=== PATIENT | male | born 1980 | race African-American/Black ===

== ENCOUNTER 2016-07-10 09:44 | Emergency (ER) | payer MEDICARE, MEDICAID ==
[2016-07-10] MEDS ORDERED: NORMAL SALINE 1000 ML 1,000 ML IV ONE ×2 (10:32→12:54)
[2016-07-10] MEDS ORDERED: DIPHENHYDRAMINE HCL 50 MG/ML VIAL IV ONE ×2 (10:33→13:53)
[2016-07-10] MEDS ORDERED: HYDROMORPHONE HCL INJ/PF 2 MG/ML AMPULE IV ONE ×2 (10:33→12:54)
--- NOTE | 2016-07-10 11:46 | ER Document Report ---
ED General - General Chief Complaint: Headache Stated Complaint: RIBS PAIN Notes: Patient is complaining of pain in the lower ribs bilaterally that extends down into his hips bilaterally. Patient has a history of sickle cell disease and in the past has been seen here for pain crises and even admitted to this hospital. His most recent visit was on 02/18/2016, and he was admitted. He has done well since then. However, for the past week, patient has experienced some of these presenting pains off and on. He has had some cough with some congestion and especially some runny nose, but no yellow or bloody discharge. Last night around 3:00, he was having more pain and was unable to sleep. He's been experiencing the pain along with some blurry vision off and on, as well. Patient is not sure if he is about to go into a sickle cell pain crisis. Patient is followed by hematology in [place] at [facility]. He is currently maintained on hydroxyurea and folate. 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 He is not having any problems with priapism at this time. 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 Patient does try to stay active and says he jogs about a mile a day. TRAVEL OUTSIDE OF THE [place] IN LAST 30 DAYS: No - Related Data Allergies/Adverse Reactions: famotidine [From Pepcid] Allergy (Severe, Verified 07/10/16 09:56) Anaphylaxis ketorolac tromethamine [From Toradol] Allergy (Severe, Verified 07/10/16 09:56) levofloxacin [From Levaquin] Allergy (Severe, Verified 07/10/16 09:56) meperidine HCl [From Demerol] Allergy (Severe, Verified 07/10/16 09:56) morphine [Morphine] Allergy (Severe, Verified 07/10/16 09:56) tramadol HCl [From Ultram] Allergy (Severe, Verified 07/10/16 09:56) amoxicillin [Amoxicillin] Allergy (Verified 07/10/16 09:56) fentanyl [Fentanyl] Allergy (Verified 07/10/16 09:56) latex [Latex] Allergy (Verified 07/10/16 09:56) ondansetron HCl [From Zofran] Allergy (Verified 07/10/16 09:56) Past Medical History - Social History Smoking Status: Never Smoker Chew tobacco use (# tins/day): No Frequency of alcohol use: None Drug Abuse: None Family History: Reviewed & Not Pertinent, Other Patient has suicidal ideation: No Patient has homicidal ideation: No Pulmonary Medical History: Denies: Hx Bronchitis, Hx Tuberculosis Neurological Medical History: Reports: Hx Seizures Endocrine Medical History: Denies: Hx Diabetes Mellitus Type 1 Renal/ Medical History: Denies: Hx Peritoneal Dialysis Musculoskeltal Medical History: Reports Hx Musculoskeletal Deformity - right hip avascular necrosis Psychiatric Medical History: Denies: Hx Depression Past Surgical History: Reports: Hx Appendectomy, Hx Vascular Surgery - port placement - Immunizations Immunizations up to date: Yes Hx Diphtheria, Pertussis, Tetanus Vaccination: Yes Hx Pneumococcal Vaccination: 02/20/11 Review of Systems - Review of Systems Notes: REVIEW OF SYSTEMS: CONSTITUTIONAL : Denies fever. EENT: Denies eye, ear, or mouth or throat pain or other symptoms. Does complain of runny nose. CARDIOVASCULAR: Denies chest pain. See history of present illness regarding lower rib pain bilaterally. RESPIRATORY: Has cough, chest congestion, but denies shortness of breath. GASTROINTESTINAL: Denies abdominal pain or nausea, vomiting, or diarrhea. GENITOURINARY: Denies difficulty or painful urinating, urinary frequency, blood in urine. MUSCULOSKELETAL: Denies neck pain. Says he has pain in both hips. Also says that he's had some swelling and pain in both of his knees since we had recent rain. SKIN: Denies rash or skin lesions. NEUROLOGICAL: Denies LOC or altered mental status. Denies headache. Denies sensory loss or motor deficits. ALL OTHER SYSTEMS REVIEWED AND NEGATIVE. Physical Exam - Vital signs Vitals: Temp Pulse Resp BP Pulse Ox 98.8 F 67 14 119/71 96 07/10/16 09:53 07/10/16 09:53 07/10/16 09:53 07/10/16 09:53 07/10/16 09:53 Interpretation: Normal - Notes Notes: PHYSICAL EXAMINATION: GENERAL: Well-appearing, in no acute distress. Afebrile. All vital signs normal. HEAD: Atraumatic, normocephalic. EYES: Pupils equal round and reactive to light, extraocular movements intact. ENT: oropharynx clear without exudates. Moist mucous membranes. NECK: Normal range of motion, supple. LUNGS: Breath sounds clear and equal bilaterally. Tender to press on the lateral, lower ribs bilaterally. HEART: Regular rate and rhythm without murmurs. ABDOMEN: Soft, nontender. No guarding or rebound. BACK: No tenderness throughout entire back. EXTREMITIES: Normal range of motion without pain. No swelling noted of either knee. Mild pain to move the hip joints. NEUROLOGICAL: Normal speech, normal gait. Normal sensory, motor, and reflex exams. Awake, alert, and oriented x3. Cranial nerves normal. PSYCH: Normal mood, normal affect. SKIN: Warm, dry, no rashes. Course - Re-evaluation Re-evalutation: 07/10/16 13:54 Patient says his pain is better, but he has continued itching so I'm giving him some more Benadryl. I don't think he needs any more Dilaudid and he agrees. He has oxycodone at home to take for pain. Went over the lab results with him and his hemoglobin is better than it's been in 6 months or more and he's got an appropriately elevated reticulocyte count. Patient says he's ready to go home. 07/10/16 14:07 Reviewing the patient's chest x-ray before discharge, I note that they suggest mild cardiac enlargement and pulmonary and vascular congestion, but patient has had findings similar to this in the past. He does not have any respiratory symptoms, as he just developed a slight cough today. He says he's had a considerable amount of runny nose all week. I don't think these findings on the chest x-ray change the plan. I stressed with the patient the need to return if he begins to run fevers or he develops worsening chest pain or any respiratory symptoms such as shortness of breath or significant cough, etc. Patient understands and agrees with plan. - Vital Signs Vital signs: Temp Pulse Resp BP Pulse Ox 98.8 F 67 14 119/71 96 07/10/16 09:53 07/10/16 09:53 07/10/16 09:53 07/10/16 09:53 07/10/16 09:53 - Laboratory Result Diagrams: 07/10/16 11:50 07/10/16 11:50 Laboratory results interpreted by me: 07/10/16 07/10/16 11:50 11:50 RBC 3.00 L Hgb 10.6 L Hct 30.6 L MCV 102 H MCH 35.3 H RDW 16.8 H Band Neutrophils % 1 L Retic Count (auto) 7.54 H Absolute Retic 0.226 H Total Bilirubin 2.0 H - Diagnostic Test Radiology reviewed: Image reviewed, Reports reviewed - Chest x-ray shows prominent interstitial or vascular markings in the lung bases and perhaps some vascular congestion. No confluent infiltrates or pleural effusions seen. Heart appears to be mildly enlarged. Discharge - Discharge Clinical Impression: Hb-SS disease with crisis Condition: Stable Disposition: HOME, SELF-CARE Additional Instructions: Sickle Cell Crisis You have "sickle cell crisis." Sickle cell disease is caused by abnormal hemoglobin. This hemoglobin can deform red blood cells into a sickle shape. These abnormal blood cells can block blood vessels. This causes the pain of sickle cell crisis. Sickle cell crisis can occur any time. But attacks are more likely with acute infection, dehydration, or altitude change. A crisis usually causes pain in the legs, back, abdomen, and chest. Sometimes the pain may ease and return later. The usual treatment is oxygen, pain medication, IV fluids, and treatment of infection. Attacks may take a couple of days to resolve. Return if the pain becomes more severe, or if there are new symptoms. NORMAL EXAM AND WORKUP: At this time, except for findings consistent with your sickle cell disease , your examination and workup show no significant abnormality. No significant abnormal physical findings were noted. All laboratory, EKG, and imaging (x-ray , CT scans, ultrasound) studies that were ordered show no significant abnormality. Although your examination and all studies that were ordered showed no significant abnormal finding, there are no examinations and no studies that are 100% accurate. There is always the possibility that some abnormality could exist and not be detected with physical examination or within the limits and capabilities of laboratory and other studies. You should return or follow up as you were instructed on your visit today for further evaluation if your symptoms do not resolve. FOLLOW-UP CARE: If you have been referred to a physician for follow-up care, call the physician s office for an appointment as you were instructed or within the next two days. If you experience worsening or a significant change in your symptoms, notify the physician immediately or return to the Emergency Department at any time for re-evaluation. Take your own medications as before. Return if fever or other new findings or symptoms. Follow-up with your physicians at [facility] in [place]. Forms: Return to Work, Return to School
[2016-07-10 12:25] LABS: HEMATOCRIT 30.6 % (37.9-51.0); HEMOGLOBIN 10.6 g/dL (13.5-17.0); HGB HCT DIFFERENCE 1.2; MEAN CORPUSCULAR HEMOGLOBIN 35.3 pg (27.0-33.4); MEAN CORPUSCULAR HGB CONC 34.6 g/dL (32.0-36.0); MEAN CORPUSCULAR VOLUME 102 fl (80-97); RED CELL DISTRIBUTION WIDTH 16.8 % (11.5-14.0); WHITE BLOOD COUNT 4.6 10^3/uL (4.0-10.5)
[2016-07-10 12:40] LABS: ALANINE AMINOTRANSFERASE 27 U/L (21-72); ALBUMIN 4.3 g/dL (3.5-5.0); ALKALINE PHOSPHATASE 64 U/L (38-126); ANION GAP 12 (5-19); ASPARTATE AMINO TRANSFERASE 30 U/L (17-59); BILIRUBIN,DIRECT 0.3 mg/dL (0.0-0.4); BLOOD UREA NITROGEN 10 mg/dL (7-20); CALCIUM 9.1 mg/dL (8.4-10.2); CARBON DIOXIDE 25 mmol/L (22-30); CHLORIDE 106 mmol/L (98-107); CREATINE KINASE 100 U/L (55-170); CREATININE RESULT 0.61 mg/dL (0.52-1.25); GLUCOSE 85 mg/dL (75-110); POTASSIUM 4.3 mmol/L (3.6-5.0); SODIUM 143.4 mmol/L (137-145); TOTAL PROTEIN 7.7 g/dL (6.3-8.2)
[2016-07-10 12:55] LABS: ANISOCYTOSIS 1+; BAND NEUTROPHILS % (MANUAL) 1 % (3-5); BASOPHILS % (MANUAL) 0 % (0-2); EOSINOPHILS % (MANUAL) 0 % (0-6); LYMPHOCYTES % (MANUAL) 41 % (13-45); NUCLEATED RED BLOOD CELLS 1 /100 WBC (0); POLYCHROMASIA 1+; TARGET CELLS 1+; TOTAL CELLS COUNTED 100
[2016-07-10 13:28] LABS: APPEARANCE,URINE CLEAR; BILIRUBIN,URINE NEGATIVE (NEGATIVE); GLUCOSE, URINE NEGATIVE (NEGATIVE); KETONES,URINE NEGATIVE (NEGATIVE); LEUKOCYTE ESTERASE,URINE NEGATIVE (NEGATIVE); NITRITE,URINE NEGATIVE (NEGATIVE); PROTEIN,URINE NEGATIVE (NEGATIVE); URINE SPECIFIC GRAVITY 1.011; UROBILINOGEN,URINE NEGATIVE mg/dL (<2.0)
[2016-07-10 15:34] VITALS: BP 133/89
== END 2016-07-10 15:33 | disposition home or self-care (01) ==
LOC: ER 09:44
DX: D57.00 Hb-SS disease with crisis, unspecified (principal); R51 Headache; R07.81 Pleurodynia; L29.9 Pruritus, unspecified; Z88.6 Allergy status to analgesic agent; Z91.040 Latex allergy status; Z88.0 Allergy status to penicillin
CPT/HCPCS: 36591; 96376; 99284; 96361; 96374; 96375; 36415; 87040; 82550; 85025; 85045; 80053; 81001; 71020; J1200; J1170; J7030

== ENCOUNTER 2016-10-11 06:39 | Inpatient (IN) | payer MEDICARE, MEDICAID ==
--- NOTE | 2016-10-11 07:25 | ER Document Report ---
ED General Pain - General Chief Complaint: Sickle Cell Crisis Stated Complaint: PAIN ALL OVER/ SICKLE CELL RELATED Time Seen by Provider: 10/11/16 07:25 Mode of Arrival: Ambulatory Information source: Patient Notes: Patient is a 35 year old male with sickle cell disease who presents to the ER today for possible sickle cell crisis. He states that at 2 in the morning he started to have some pain all over his body, limbs and abdomen worse than anywhere else, but denies chest pain or shortness of breath. Patient takes oxycodone at home and states that he did try this but it did not help him. He denies any nausea, vomiting, cough, fever chills that he knows of. TRAVEL OUTSIDE OF THE [place] IN LAST 30 DAYS: No - Related Data Allergies/Adverse Reactions: famotidine [From Pepcid] Allergy (Severe, Verified 07/10/16 09:56) Anaphylaxis ketorolac tromethamine [From Toradol] Allergy (Severe, Verified 07/10/16 09:56) levofloxacin [From Levaquin] Allergy (Severe, Verified 07/10/16 09:56) meperidine HCl [From Demerol] Allergy (Severe, Verified 07/10/16 09:56) morphine [Morphine] Allergy (Severe, Verified 07/10/16 09:56) tramadol HCl [From Ultram] Allergy (Severe, Verified 07/10/16 09:56) amoxicillin [Amoxicillin] Allergy (Verified 07/10/16 09:56) fentanyl [Fentanyl] Allergy (Verified 07/10/16 09:56) latex [Latex] Allergy (Verified 07/10/16 09:56) ondansetron HCl [From Zofran] Allergy (Verified 07/10/16 09:56) Past Medical History - General Information source: Patient - Social History Smoking Status: Unknown if Ever Smoked Family History: Reviewed & Not Pertinent, Other Patient has suicidal ideation: No Patient has homicidal ideation: No - Past Medical History Cardiac Medical History: Denies: Hx Atrial Fibrillation, Hx Congestive Heart Failure, Hx Coronary Artery Disease Pulmonary Medical History: Denies: Hx Bronchitis, Hx Tuberculosis Neurological Medical History: Reports: Hx Seizures Endocrine Medical History: Denies: Hx Diabetes Mellitus Type 1 Renal/ Medical History: Denies: Hx Peritoneal Dialysis Musculoskeltal Medical History: Reports Hx Musculoskeletal Deformity - right hip avascular necrosis Psychiatric Medical History: Denies: Hx Depression Past Surgical History: Reports: Hx Appendectomy, Hx Vascular Surgery - port placement - Immunizations Immunizations up to date: Yes Hx Diphtheria, Pertussis, Tetanus Vaccination: Yes Hx Pneumococcal Vaccination: 02/20/11 Review of Systems - Review of Systems Constitutional: No symptoms reported EENT: No symptoms reported Cardiovascular: No symptoms reported Respiratory: No symptoms reported Gastrointestinal: No symptoms reported Genitourinary: No symptoms reported Male Genitourinary: No symptoms reported Musculoskeletal: No symptoms reported Skin: No symptoms reported Hematologic/Lymphatic: See HPI Neurological/Psychological: No symptoms reported Physical Exam - Vital signs Vitals: Temp Pulse Resp BP Pulse Ox 98.4 F 67 18 130/82 H 99 10/11/16 06:43 10/11/16 06:43 10/11/16 06:43 10/11/16 06:43 10/11/16 06:43 - Notes Notes: PHYSICAL EXAMINATION: GENERAL: Obviously in pain, but in no acute distress. HEAD: Atraumatic, normocephalic. EYES: Pupils equal round and reactive to light, extraocular movements intact, sclera anicteric, conjunctiva are normal. NECK: Normal range of motion, supple without lymphadenopathy LUNGS: CTAB and equal. No wheezes rales or rhonchi. HEART: Regular rate and rhythm without murmurs ABDOMEN: Soft, no tenderness. No guarding, no rebound BACK: no vertebral tenderness, normal ROM GI/: no CVA tenderness EXTREMITIES: tender to palpation over entirety of all extremities, sensitive to touch, otherwise Normal range of motion, no pitting edema. No cyanosis. NEUROLOGICAL: Cranial nerves grossly intact. Normal sensory/motor exams. PSYCH: Normal mood, normal affect. SKIN: Warm, Dry, normal turgor, no rashes or lesions noted Course - Re-evaluation Re-evalutation: 10/11/16 10:35 Dr. Tinajero agrees to admit at this time for sickle cell crisis, reticulocyte count is higher than usual at 11.69, hgb is 9, chest x ray shows scarring c/w other x rays in past. I do not believe he has pneumonia. 10/11/16 10:49 - Vital Signs Vital signs: Temp Pulse Resp BP Pulse Ox 98.4 F 67 18 130/82 H 99 10/11/16 06:43 10/11/16 06:43 10/11/16 06:43 10/11/16 06:43 10/11/16 06:43 - Laboratory Result Diagrams: 10/11/16 08:23 10/11/16 08:23 Laboratory results interpreted by me: 10/11/16 10/11/16 08:23 08:23 RBC 2.83 L Hgb 9.2 L Hct 28.4 L MCV 100 H RDW 20.5 H Retic Count (auto) 11.69 H Absolute Retic 0.331 H Total Bilirubin 1.5 H Discharge - Discharge Clinical Impression: Sickle cell crisis Condition: Stable Disposition: ADMITTED INPATIENT Admitting Provider: Hospitalist Unit Admitted: Telemetry
[2016-10-11] MEDS ORDERED: NORMAL SALINE 1000 ML 1,000 ML IV ONE ×2 (07:28→10:34)
[2016-10-11] MEDS ORDERED: HYDROMORPHONE HCL INJ/PF 2 MG/ML AMPULE IV ONE ×2 (07:39→10:34)
[2016-10-11] MEDS ORDERED: ALBUTEROL SULFATE 0.083% NEB 2.5 MG/3 ML AMPUL NEB ONE (07:39)
[2016-10-11] MEDS ORDERED: DIPHENHYDRAMINE HCL 50 MG/ML VIAL IV ONE ×2 (07:39→10:46)
--- NOTE | 2016-10-11 08:08 | RADIOLOGY REPORT (SQ) ---
EXAM DESCRIPTION: CHEST PA/LAT COMPLETED DATE/TIME: 10/11/2016 7:56 am REASON FOR STUDY: sickle cell, sob, hx pneumonia w/crisis COMPARISON: 07/10/2016. 02/21/2016. 12/30/2015. EXAM PARAMETERS: NUMBER OF VIEWS: two views TECHNIQUE: Digital Frontal and Lateral radiographic views of the chest acquired. RADIATION DOSE: NA LIMITATIONS: none FINDINGS: LUNGS AND PLEURA: Small streakiness -patchiness of bilateral lower lobes, left more than r ight. Mild interstitial markings. MEDIASTINUM AND HILAR STRUCTURES: No masses or contour abnormalities. HEART AND VASCULAR STRUCTURES: Heart normal size. No evidence for failure. BONES: No acute findings. HARDWARE: Left mini port central line appears adequate. OTHER: No other significant finding. IMPRESSION: Small recurrent streakiness-patchiness of bilateral lower lobes may indicate pneumonia, atelectasis, or scar. TECHNICAL DOCUMENTATION: JOB ID: [id number] [employer]- All Rights Reserved
[2016-10-11 08:40] LABS: ABSOLUTE BASOPHILS # (AUTO) 0.1 10^3/uL (0.0-0.2); ABSOLUTE EOSINOPHILS # (AUTO) 0.1 10^3/uL (0.0-0.6); ABSOLUTE LYMPHOCYTES (AUTO) 2.1 10^3/uL (0.5-4.7); ABSOLUTE MONOCYTES (AUTO) 0.9 10^3/uL (0.1-1.4); EOSINOPHILS % (AUTO) 0.9 % (0-6); HEMATOCRIT 28.4 % (37.9-51.0); HEMOGLOBIN 9.2 g/dL (13.5-17.0); HGB HCT DIFFERENCE -0.8; LYMPHOCYTES % (AUTO) 25.7 % (13-45); MEAN CORPUSCULAR HEMOGLOBIN 32.4 pg (27.0-33.4); MEAN CORPUSCULAR HGB CONC 32.4 g/dL (32.0-36.0); MEAN CORPUSCULAR VOLUME 100 fl (80-97); MONOCYTES % (AUTO) 11.5 % (3-13); RED BLOOD COUNT 2.83 10^6/uL (4.35-5.55); RED CELL DISTRIBUTION WIDTH 20.5 % (11.5-14.0); SEGMENTED NEUTROPHILS % (AUTO) 60.9 % (42-78); WHITE BLOOD COUNT 8.2 10^3/uL (4.0-10.5)
[2016-10-11 08:54] LABS: ALANINE AMINOTRANSFERASE 23 U/L (21-72); ALBUMIN 3.8 g/dL (3.5-5.0); ALKALINE PHOSPHATASE 78 U/L (38-126); ANION GAP 9 (5-19); ASPARTATE AMINO TRANSFERASE 24 U/L (17-59); BILIRUBIN,DIRECT 0.1 mg/dL (0.0-0.4); BILIRUBIN,TOTAL 1.5 mg/dL (0.2-1.3); BLOOD UREA NITROGEN 10 mg/dL (7-20); CALCIUM 8.6 mg/dL (8.4-10.2); CARBON DIOXIDE 26 mmol/L (22-30); CHLORIDE 106 mmol/L (98-107); CREATININE RESULT 0.66 mg/dL (0.52-1.25); GLUCOSE 90 mg/dL (75-110); POTASSIUM 3.9 mmol/L (3.6-5.0); SODIUM 141.2 mmol/L (137-145); TOTAL PROTEIN 7.6 g/dL (6.3-8.2)
[2016-10-11 09:25] LABS: ANISOCYTOSIS 2+; OVALOCYTES 2+; POIKILOCYTOSIS 2+; POLYCHROMASIA 2+; TARGET CELLS SLIGHT
[2016-10-11 10:40] LABS: APPEARANCE,URINE CLEAR; BILIRUBIN,URINE NEGATIVE (NEGATIVE); GLUCOSE, URINE NEGATIVE (NEGATIVE); KETONES,URINE NEGATIVE (NEGATIVE); LEUKOCYTE ESTERASE,URINE NEGATIVE (NEGATIVE); NITRITE,URINE NEGATIVE (NEGATIVE); PROTEIN,URINE NEGATIVE (NEGATIVE); URINE SPECIFIC GRAVITY 1.004; UROBILINOGEN,URINE NEGATIVE mg/dL (<2.0)
[2016-10-11] MEDS ORDERED: ACETAMINOPHEN 325 MG TABLET PO PRN (11:16)
[2016-10-11] MEDS ORDERED: OXYCODONE-ACETAMINOPHEN 5-325 MG TABLET PO PRN (11:16)
[2016-10-11] MEDS ORDERED: HYDROMORPHONE HCL INJ/PF 2 MG/ML AMPULE IV PRN (11:21)
--- NOTE | 2016-10-11 12:01 | PDOC H&P ---
History of Present Illness Admission Date/PCP: 10/11/16 11:02 Patient complains of: Hip and chest pain. History of Present Illness: MARISA GARBER is a 35 year old male with sickle cell disease who presents with complaints of chest, hip, back pain. He reports that he woke up this morning at 3 AM with complaints of pain in his chest and hips as well as his lower back. He denies any cough. He denies any fevers or chills. He denies any change with ambulation. Denies any orthopnea or PND. Denies any priapism. Past Medical History Cardiac Medical History: Denies: Atrial Fibrillation, Congestive Heart Failure, Coronary Artery Disease Pulmonary Medical History: Denies: Bronchitis, Tuberculosis Neurological Medical History: Reports: Seizures Endocrine Medical History: Reports: None Renal/ Medical History: Reports: None Malignancy Medical History: Reports: None GI Medical History: Reports: None Psychiatric Medical History: Denies: Depression Hematology: Reports: Anemia, Sickle Cell Disease Denies: Hemophilia Infectious Medical History: Reports: None Past Surgical History Past Surgical History: Reports: Appendectomy, Vascular Surgery - port placement Social History Information Source: Patient Lives with: Spouse/Significant other Smoking Status: Never Smoker Frequency of Alcohol Use: None Hx Recreational Drug Use: No Drugs: None Hx Prescription Drug Abuse: No - Advance Directive Resuscitation Status: Full Code Surrogate healthcare decision maker:: Family History Family History: Other Family History: Father is alive at 61. He is healthy. Mother at age 41. He is uncertain as to the cause Parental Family History Reviewed: Yes Children Family History Reviewed: No Sibling(s) Family History Reviewed.: No Medication/Allergy Allergies/Adverse Reactions: famotidine [From Pepcid] Allergy (Severe, Verified 07/10/16 09:56) Anaphylaxis ketorolac tromethamine [From Toradol] Allergy (Severe, Verified 07/10/16 09:56) levofloxacin [From Levaquin] Allergy (Severe, Verified 07/10/16 09:56) meperidine HCl [From Demerol] Allergy (Severe, Verified 07/10/16 09:56) morphine [Morphine] Allergy (Severe, Verified 07/10/16 09:56) tramadol HCl [From Ultram] Allergy (Severe, Verified 07/10/16 09:56) amoxicillin [Amoxicillin] Allergy (Verified 07/10/16 09:56) fentanyl [Fentanyl] Allergy (Verified 07/10/16 09:56) latex [Latex] Allergy (Verified 07/10/16 09:56) ondansetron HCl [From Zofran] Allergy (Verified 07/10/16 09:56) Review of Systems Constitutional: ABSENT: chills, fever(s), headache(s), weight gain, weight loss Eyes: ABSENT: visual disturbances Ears: ABSENT: hearing changes Cardiovascular: PRESENT: chest pain. ABSENT: dyspnea on exertion, edema, orthropnea, palpitations Respiratory: ABSENT: cough, dyspnea, hemoptysis, sputum Gastrointestinal: ABSENT: abdominal pain, constipation, diarrhea, hematemesis, hematochezia, nausea, vomiting Musculoskeletal: PRESENT: back pain. ABSENT: deformity, joint swelling, muscle weakness Integumentary: ABSENT: rash, wounds Neurological: ABSENT: abnormal gait, abnormal speech, confusion, dizziness, focal weakness, syncope Psychiatric: ABSENT: anxiety, depression Endocrine: ABSENT: cold intolerance, heat intolerance, polydipsia, polyuria Hematologic/Lymphatic: ABSENT: easy bleeding, easy bruising Physical Exam Vital Signs: Temp Pulse Resp BP Pulse Ox 98.4 F 67 18 130/82 H 99 10/11/16 06:43 10/11/16 06:43 10/11/16 06:43 10/11/16 06:43 10/11/16 06:43 General appearance: PRESENT: no acute distress Head exam: PRESENT: atraumatic, normocephalic Eye exam: PRESENT: conjunctiva pink, EOMI, PERRLA. ABSENT: scleral icterus Ear exam: PRESENT: normal external ear exam Mouth exam: PRESENT: moist, tongue midline Neck exam: ABSENT: carotid bruit, JVD, lymphadenopathy, thyromegaly Respiratory exam: PRESENT: clear to auscultation anastasiya. ABSENT: rales, rhonchi, wheezes Cardiovascular exam: PRESENT: RRR. ABSENT: diastolic murmur, rubs, systolic murmur Pulses: PRESENT: normal dorsalis pedis pul Vascular exam: PRESENT: normal capillary refill GI/Abdominal exam: PRESENT: normal bowel sounds, soft. ABSENT: distended, guarding, mass, organolmegaly, rebound, tenderness Rectal exam: PRESENT: deferred Extremities exam: ABSENT: calf tenderness, clubbing, pedal edema Neurological exam: PRESENT: alert, awake, oriented to person, oriented to place , oriented to time, oriented to situation, CN II-XII grossly intact. ABSENT: motor sensory deficit Psychiatric exam: PRESENT: appropriate affect, normal mood Skin exam: PRESENT: dry, intact, warm. ABSENT: cyanosis, rash Results Impressions: Chest X-Ray 10/11/16 07:39 IMPRESSION: Small recurrent streakiness-patchiness of bilateral lower lobes may indicate pneumonia, atelectasis, or scar. Assessment & Plan - Diagnosis (1) Sickle cell crisis Is this a current diagnosis for this admission?: YesPlan: Patient has complaints of chest, back, hip pain. He denies any productive cough. Denies any orthopnea or PND. Will give IV fluids and IV Dilaudid. Patient is now followed at [facility] for his sickle cell disease. Patient denies any fevers or chills or cough. Will hold off on starting any antibiotics at this time. He denies having any priaprism (2) Anemia Qualifiers: Anemia type: acquired or hereditary hemolytic anemia Hemolytic anemia type: hereditary hemolytic anemia, unspecified Qualified Code(s): D58.9 - Hereditary hemolytic anemia, unspecified Is this a current diagnosis for this admission?: Yes (3) Avascular necrosis of hip Qualifiers: Laterality: right Qualified Code(s): M87.051 - Idiopathic aseptic necrosis of right femur Is this a current diagnosis for this admission?: Yes (4) DVT prophylaxis Is this a current diagnosis for this admission?: YesPlan: We will give Lovenox - Time Time Spent: 50 to 70 Minutes - Inpatient Certification Medical Necessity: Need For IV Fluids, Need for Pain Control
[2016-10-11] MEDS ORDERED: ENOXAPARIN SODIUM INJ 40 MG/0.4 ML DISP.SYRIN SUBCUT ONE (12:45)
[2016-10-11] MEDS: NORMAL SALINE 1000 ML 1,000 ML IV PRN ×2 (14:05→20:11)
[2016-10-11] MEDS: HYDROMORPHONE HCL INJ/PF 2 MG/ML AMPULE IV PRN ×5 (14:10→23:13)
[2016-10-11] MEDS: DIPHENHYDRAMINE HCL 50 MG/ML VIAL IV PRN ×3 (14:10→23:13)
[2016-10-12] MEDS: HYDROMORPHONE HCL INJ/PF 2 MG/ML AMPULE IV PRN ×9 (01:50→22:46)
[2016-10-12] MEDS: NORMAL SALINE 1000 ML 1,000 ML IV PRN ×4 (01:52→21:54)
[2016-10-12] MEDS: DIPHENHYDRAMINE HCL 50 MG/ML VIAL IV PRN ×4 (04:09→20:24)
[2016-10-12 07:06] LABS: HEMATOCRIT 27.8 % (37.9-51.0); HEMOGLOBIN 9.3 g/dL (13.5-17.0); HGB HCT DIFFERENCE 0.1; MEAN CORPUSCULAR HEMOGLOBIN 33.5 pg (27.0-33.4); MEAN CORPUSCULAR HGB CONC 33.5 g/dL (32.0-36.0); MEAN CORPUSCULAR VOLUME 100 fl (80-97); RED BLOOD COUNT 2.78 10^6/uL (4.35-5.55); RED CELL DISTRIBUTION WIDTH 20.2 % (11.5-14.0); WHITE BLOOD COUNT 10.2 10^3/uL (4.0-10.5)
[2016-10-12 07:15] LABS: ANION GAP 8 (5-19); BLOOD UREA NITROGEN 8 mg/dL (7-20); CALCIUM 8.3 mg/dL (8.4-10.2); CARBON DIOXIDE 27 mmol/L (22-30); CHLORIDE 106 mmol/L (98-107); CREATININE RESULT 0.66 mg/dL (0.52-1.25); GLUCOSE 111 mg/dL (75-110); POTASSIUM 3.9 mmol/L (3.6-5.0); SODIUM 140.8 mmol/L (137-145)
[2016-10-12 07:29] LABS: BASOPHILS % (MANUAL) 0 % (0-2); EOSINOPHILS % (MANUAL) 0 % (0-6); LYMPHOCYTES % (MANUAL) 21 % (13-45); NUCLEATED RED BLOOD CELLS 7 /100 WBC (0); TOTAL CELLS COUNTED 100
[2016-10-12 07:30] LABS: ANISOCYTOSIS 2+; POLYCHROMASIA 2+; TARGET CELLS 1+
[2016-10-12] MEDS: ENOXAPARIN SODIUM INJ 40 MG/0.4 ML DISP.SYRIN SUBCUT SCH (09:30)
[2016-10-12 12:35] LABS: APPEARANCE,URINE CLEAR; BILIRUBIN,URINE NEGATIVE (NEGATIVE); GLUCOSE, URINE NEGATIVE (NEGATIVE); KETONES,URINE NEGATIVE (NEGATIVE); LEUKOCYTE ESTERASE,URINE NEGATIVE (NEGATIVE); NITRITE,URINE NEGATIVE (NEGATIVE); PROTEIN,URINE NEGATIVE (NEGATIVE); URINE SPECIFIC GRAVITY 1.009; UROBILINOGEN,URINE NEGATIVE mg/dL (<2.0)
[2016-10-12 12:55] LABS: RBC,URINE RARE /HPF; WBC,URINE NONE SEEN /HPF
--- NOTE | 2016-10-12 17:01 | PDOC PROGRESS REPORT ---
Subjective Progress Note for:: 10/12/16 Subjective:: Complains of pain in his back and hips Physical Exam Vital Signs: Temp Pulse Resp BP Pulse Ox 99.7 F 77 20 123/75 98 10/12/16 11:49 10/12/16 16:35 10/12/16 16:35 10/12/16 11:49 10/12/16 16:35 Intake & Output 10/11/16 10/12/16 10/13/16 06:59 06:59 06:59 Intake Total 2950 Balance 2950 Weight 78.6 kg General appearance: PRESENT: no acute distress Eye exam: PRESENT: conjunctiva pink. ABSENT: scleral icterus Ear exam: PRESENT: normal external ear exam Mouth exam: PRESENT: moist, tongue midline Neck exam: ABSENT: JVD Respiratory exam: PRESENT: clear to auscultation anastasiya. ABSENT: rales, rhonchi, wheezes Cardiovascular exam: PRESENT: RRR. ABSENT: diastolic murmur, rubs, systolic murmur GI/Abdominal exam: PRESENT: normal bowel sounds, soft. ABSENT: distended, guarding, mass, organolmegaly, rebound, tenderness Extremities exam: ABSENT: calf tenderness, clubbing, pedal edema Neurological exam: PRESENT: alert, awake, oriented to person, oriented to place , oriented to time, oriented to situation, CN II-XII grossly intact. ABSENT: motor sensory deficit Psychiatric exam: PRESENT: appropriate affect Skin exam: PRESENT: dry, intact, warm. ABSENT: cyanosis, rash Results Laboratory Results: 10/12/16 06:45 10/12/16 06:45 10/12/16 10/12/16 10/12/16 06:45 06:45 12:00 WBC 10.2 RBC 2.78 L Hgb 9.3 L Hct 27.8 L MCV 100 H MCH 33.5 H MCHC 33.5 RDW 20.2 H Plt Count 394 Seg Neutrophils % Not Reportable Lymphocytes % Not Reportable Monocytes % Not Reportable Eosinophils % Not Reportable Basophils % Not Reportable Absolute Neutrophils Not Reportable Absolute Lymphocytes Not Reportable Absolute Monocytes Not Reportable Absolute Eosinophils Not Reportable Absolute Basophils Not Reportable Sodium 140.8 Potassium 3.9 Chloride 106 Carbon Dioxide 27 Anion Gap 8 BUN 8 Creatinine 0.66 Est GFR ( Amer) > 60 Est GFR (Non-Af Amer) > 60 Glucose 111 H Calcium 8.3 L Urine Color YELLOW Urine Appearance CLEAR Urine pH 6.0 Ur Specific [place] 1.009 Urine Protein NEGATIVE Urine Glucose (UA) NEGATIVE Urine Ketones NEGATIVE Urine Blood NEGATIVE Urine Nitrite NEGATIVE Ur Leukocyte Esterase NEGATIVE Impressions: Chest X-Ray 10/11/16 07:39 IMPRESSION: Small recurrent streakiness-patchiness of bilateral lower lobes may indicate pneumonia, atelectasis, or scar. Assessment & Plan - Diagnosis (1) Sickle cell crisis Is this a current diagnosis for this admission?: YesPlan: Patient has complaints of chest, back, hip pain. He denies any productive cough. Denies any orthopnea or PND. Will continue IV fluids and IV Dilaudid. Patient is now followed at [facility] for his sickle cell disease. Patient denies any fevers or chills or cough. Will hold off on starting any antibiotics at this time. 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
[2016-10-13] MEDS: HYDROMORPHONE HCL INJ/PF 2 MG/ML AMPULE IV PRN ×10 (00:52→21:37)
[2016-10-13] MEDS: DIPHENHYDRAMINE HCL 50 MG/ML VIAL IV PRN ×5 (00:52→19:17)
[2016-10-13 06:41] LABS: HEMATOCRIT 27.3 % (37.9-51.0); HGB HCT DIFFERENCE -0.3; MEAN CORPUSCULAR HEMOGLOBIN 32.9 pg (27.0-33.4); MEAN CORPUSCULAR VOLUME 100 fl (80-97); RED BLOOD COUNT 2.75 10^6/uL (4.35-5.55); RED CELL DISTRIBUTION WIDTH 19.4 % (11.5-14.0); WHITE BLOOD COUNT 8.4 10^3/uL (4.0-10.5)
[2016-10-13 06:44] LABS: ANION GAP 6 (5-19); BLOOD UREA NITROGEN 6 mg/dL (7-20); CALCIUM 8.7 mg/dL (8.4-10.2); CARBON DIOXIDE 30 mmol/L (22-30); CHLORIDE 103 mmol/L (98-107); CREATININE RESULT 0.59 mg/dL (0.52-1.25); GLUCOSE 102 mg/dL (75-110); SODIUM 139.2 mmol/L (137-145)
[2016-10-13 07:01] LABS: EOSINOPHILS % (MANUAL) 0 % (0-6); LYMPHOCYTES % (MANUAL) 9 % (13-45); TOTAL CELLS COUNTED 100
[2016-10-13 07:02] LABS: BASOPHILS % (MANUAL) 2 % (0-2); TOXIC GRANULATION 1+; TOXIC VACUOLATION PRESENT
[2016-10-13 07:03] LABS: ANISOCYTOSIS 2+; NUCLEATED RED BLOOD CELLS 6 /100 WBC (0); OVALOCYTES 1+; POIKILOCYTOSIS 1+; TARGET CELLS 1+
[2016-10-13] MEDS ORDERED: OXYCODONE HCL IR 5 MG TABLET PO PRN (09:16)
[2016-10-13] MEDS: METHADONE HCL 10 MG TABLET PO SCH ×2 (09:33→21:39)
[2016-10-13] MEDS: FOLIC ACID 1 MG TABLET PO SCH (09:33)
[2016-10-13] MEDS ORDERED: (PENDING PHARMACY ID) (Methadone Hcl [Dolophine Hcl] 5 MG) PO SCH (10:00)
[2016-10-13] MEDS ORDERED: (PENDING PHARMACY ID) (Moxifloxacin Hcl 1 DROP) OS SCH (10:00)
[2016-10-13] MEDS: ENOXAPARIN SODIUM INJ 40 MG/0.4 ML DISP.SYRIN SUBCUT SCH (10:34)
[2016-10-13] MEDS: HYDROXYUREA 500 MG CAPSULE PO SCH (10:34)
[2016-10-13] MEDS: ALBUTEROL SULFATE 0.083% NEB 2.5 MG/3 ML AMPUL NEB PRN (10:36)
--- NOTE | 2016-10-13 11:10 | PDOC PROGRESS REPORT ---
Subjective Progress Note for:: 10/13/16 Subjective:: Complains of pain in his back and hips Physical Exam Vital Signs: Temp Pulse Resp BP Pulse Ox 98.7 F 92 18 135/81 H 94 10/13/16 07:50 10/13/16 10:36 10/13/16 10:36 10/13/16 07:50 10/13/16 10:36 Intake & Output 10/12/16 10/13/16 10/14/16 06:59 06:59 06:59 Intake Total 2950 5240 700 Output Total 3250 Balance 2950 1990 700 Weight 78.6 kg 79.8 kg General appearance: PRESENT: no acute distress Eye exam: PRESENT: conjunctiva pink. ABSENT: scleral icterus Mouth exam: PRESENT: moist, tongue midline Neck exam: ABSENT: JVD Respiratory exam: PRESENT: clear to auscultation anastasiya. ABSENT: rales, rhonchi, wheezes Cardiovascular exam: PRESENT: RRR. ABSENT: diastolic murmur, rubs, systolic murmur GI/Abdominal exam: PRESENT: normal bowel sounds, soft. ABSENT: distended, guarding, mass, organolmegaly, rebound, tenderness Extremities exam: ABSENT: calf tenderness, clubbing, pedal edema Neurological exam: PRESENT: alert, awake, oriented to person, oriented to place , oriented to time, oriented to situation, CN II-XII grossly intact. ABSENT: motor sensory deficit Psychiatric exam: PRESENT: appropriate affect Skin exam: PRESENT: dry, intact, warm. ABSENT: cyanosis, rash Results Laboratory Results: 10/13/16 05:30 10/13/16 05:30 10/12/16 10/13/16 10/13/16 12:00 05:30 05:30 WBC 8.4 RBC 2.75 L Hgb 9.0 L Hct 27.3 L MCV 100 H MCH 32.9 MCHC 33.0 RDW 19.4 H Plt Count 365 Seg Neutrophils % Not Reportable Lymphocytes % Not Reportable Monocytes % Not Reportable Eosinophils % Not Reportable Basophils % Not Reportable Absolute Neutrophils Not Reportable Absolute Lymphocytes Not Reportable Absolute Monocytes Not Reportable Absolute Eosinophils Not Reportable Absolute Basophils Not Reportable Sodium 139.2 Potassium 4.0 Chloride 103 Carbon Dioxide 30 Anion Gap 6 BUN 6 L Creatinine 0.59 Est GFR ( Amer) > 60 Est GFR (Non-Af Amer) > 60 Glucose 102 Calcium 8.7 Urine Color YELLOW Urine Appearance CLEAR Urine pH 6.0 Ur Specific [place] 1.009 Urine Protein NEGATIVE Urine Glucose (UA) NEGATIVE Urine Ketones NEGATIVE Urine Blood NEGATIVE Urine Nitrite NEGATIVE Ur Leukocyte Esterase NEGATIVE Impressions: Chest X-Ray 10/11/16 07:39 IMPRESSION: Small recurrent streakiness-patchiness of bilateral lower lobes may indicate pneumonia, atelectasis, or scar. Assessment & Plan - Diagnosis (1) Sickle cell crisis Is this a current diagnosis for this admission?: YesPlan: Patient has complaints of chest, back, hip pain. He denies any productive cough. Denies any orthopnea or PND. Will continue IV fluids and IV Dilaudid. Patient is now followed at [facility] for his sickle cell disease. Patient denies any fevers or chills or cough. Will hold off on starting any antibiotics at this time. He denies having any priaprism. He does however report that he normally takes Sudafed 60 mg nightly. (2) Anemia Qualifiers: Anemia type: acquired or hereditary hemolytic anemia Hemolytic anemia type: hereditary hemolytic anemia, unspecified Qualified Code(s): D58.9 - Hereditary hemolytic anemia, unspecified Is this a current diagnosis for this admission?: YesPlan: Hemoglobin is stable (3) Avascular necrosis of hip Qualifiers: Laterality: right Qualified Code(s): M87.051 - Idiopathic aseptic necrosis of right femur Is this a current diagnosis for this admission?: Yes (4) DVT prophylaxis Is this a current diagnosis for this admission?: YesPlan: We will give Lovenox - Time Time Spent with patient: 25-34 minutes - Inpatient Certification Medical Necessity: Need Close Monitoring Due to Risk of Patient Decompensation, Need For IV Fluids, Need for Pain Control
[2016-10-13] MEDS: MOXIFLOXACIN HCL 0.5% OPH SOLN 3 ML OS SCH ×3 (11:57→17:17)
[2016-10-13] MEDS: PSEUDOEPHEDRINE HCL 30 MG TABLET PO SCH (21:39)
[2016-10-13] MEDS: BACLOFEN 10 MG TABLET PO SCH (21:40)
[2016-10-13] MEDS: NORMAL SALINE 1000 ML 1,000 ML IV PRN (23:07)
[2016-10-14] MEDS: HYDROMORPHONE HCL INJ/PF 2 MG/ML AMPULE IV PRN ×11 (00:28→23:15)
[2016-10-14] MEDS: DIPHENHYDRAMINE HCL 50 MG/ML VIAL IV PRN ×6 (00:28→23:14)
[2016-10-14] MEDS: MOXIFLOXACIN HCL 0.5% OPH SOLN 3 ML OS SCH (01:04)
[2016-10-14] MEDS: NORMAL SALINE 1000 ML 1,000 ML IV PRN ×3 (05:10→23:15)
[2016-10-14 05:11] LABS: HEMATOCRIT 26.7 % (37.9-51.0); HEMOGLOBIN 8.9 g/dL (13.5-17.0); MEAN CORPUSCULAR HEMOGLOBIN 32.6 pg (27.0-33.4); MEAN CORPUSCULAR HGB CONC 33.4 g/dL (32.0-36.0); MEAN CORPUSCULAR VOLUME 98 fl (80-97); RED BLOOD COUNT 2.73 10^6/uL (4.35-5.55); RED CELL DISTRIBUTION WIDTH 19.1 % (11.5-14.0); WHITE BLOOD COUNT 7.4 10^3/uL (4.0-10.5)
[2016-10-14 05:19] LABS: ANION GAP 7 (5-19); BLOOD UREA NITROGEN 7 mg/dL (7-20); CALCIUM 8.8 mg/dL (8.4-10.2); CARBON DIOXIDE 33 mmol/L (22-30); CHLORIDE 101 mmol/L (98-107); CREATININE RESULT 0.57 mg/dL (0.52-1.25); GLUCOSE 123 mg/dL (75-110); POTASSIUM 3.9 mmol/L (3.6-5.0); SODIUM 140.9 mmol/L (137-145)
[2016-10-14 06:02] LABS: BASOPHILS % (MANUAL) 0 % (0-2); EOSINOPHILS % (MANUAL) 3 % (0-6); LYMPHOCYTES % (MANUAL) 16 % (13-45); NUCLEATED RED BLOOD CELLS 6 /100 WBC (0); TOTAL CELLS COUNTED 100
[2016-10-14 06:04] LABS: ANISOCYTOSIS 2+; HOWELL-JOLLY BODIES PRESENT; OVALOCYTES SLIGHT; POIKILOCYTOSIS 1+; POLYCHROMASIA 2+; TARGET CELLS 2+; TEAR DROP CELLS SLIGHT
[2016-10-14] MEDS: ALBUTEROL SULFATE 0.083% NEB 2.5 MG/3 ML AMPUL NEB PRN (09:33)
--- NOTE | 2016-10-14 09:44 | RADIOLOGY REPORT (SQ) ---
EXAM DESCRIPTION: CHEST PA/LAT COMPLETED DATE/TIME: 10/14/2016 9:27 am REASON FOR STUDY: chest pain COMPARISON: 10/11/2016 EXAM PARAMETERS: NUMBER OF VIEWS: two views TECHNIQUE: Digital Frontal and Lateral radiographic views of the chest acquired. RADIATION DOSE: NA LIMITATIONS: none FINDINGS: LUNGS AND PLEURA: Increasing basilar opacities and bilateral effusions. MEDIASTINUM AND HILAR STRUCTURES: No masses or contour abnormalities. HEART AND VASCULAR STRUCTURES: Vascular congestion. BONES: No acute findings. HARDWARE: Venous access catheter unchanged. OTHER: No other significant finding. IMPRESSION: Deterioration in the chest. Increasing basilar opacities, effusions, and vascular conge stion. TECHNICAL DOCUMENTATION: JOB ID: [id number] [employer]- All Rights Reserved
[2016-10-14] MEDS: FOLIC ACID 1 MG TABLET PO SCH (10:25)
[2016-10-14] MEDS: METHADONE HCL 10 MG TABLET PO SCH ×2 (10:25→21:09)
[2016-10-14] MEDS: ENOXAPARIN SODIUM INJ 40 MG/0.4 ML DISP.SYRIN SUBCUT SCH (10:25)
[2016-10-14] MEDS: HYDROXYUREA 500 MG CAPSULE PO SCH (10:25)
[2016-10-14] MEDS ORDERED: PROMETHAZINE HCL 25 MG SUPP.RECT PR PRN (11:08)
--- NOTE | 2016-10-14 11:11 | PDOC PROGRESS REPORT ---
Subjective Progress Note for:: 10/14/16 Subjective:: Complains of pain in his back and hips Physical Exam Vital Signs: Temp Pulse Resp BP Pulse Ox 98.6 F 83 16 139/92 H 95 10/14/16 07:27 10/14/16 09:33 10/14/16 09:33 10/14/16 07:27 10/14/16 09:33 Intake & Output 10/13/16 10/14/16 10/15/16 06:59 06:59 06:59 Intake Total 5240 2920 Output Total 3250 3650 Balance 1989 Weight 79.8 kg 79.5 kg General appearance: PRESENT: no acute distress Eye exam: PRESENT: conjunctiva pink. ABSENT: scleral icterus Mouth exam: PRESENT: moist, tongue midline Neck exam: ABSENT: JVD Respiratory exam: PRESENT: rhonchi - Coarse rhonchi bilaterally.. ABSENT: rales , wheezes Cardiovascular exam: PRESENT: RRR. ABSENT: diastolic murmur, rubs, systolic murmur GI/Abdominal exam: PRESENT: normal bowel sounds, soft. ABSENT: distended, guarding, mass, organolmegaly, rebound, tenderness Extremities exam: ABSENT: calf tenderness, clubbing, pedal edema Neurological exam: PRESENT: alert, awake, oriented to person, oriented to place , oriented to time, oriented to situation, CN II-XII grossly intact. ABSENT: motor sensory deficit Psychiatric exam: PRESENT: appropriate affect Skin exam: PRESENT: dry, intact, warm. ABSENT: cyanosis, rash Results Laboratory Results: 10/14/16 04:25 10/14/16 04:25 10/14/16 10/14/16 04:25 04:25 WBC 7.4 RBC 2.73 L Hgb 8.9 L Hct 26.7 L MCV 98 H MCH 32.6 MCHC 33.4 RDW 19.1 H Plt Count 355 Seg Neutrophils % Not Reportable Lymphocytes % Not Reportable Monocytes % Not Reportable Eosinophils % Not Reportable Basophils % Not Reportable Absolute Neutrophils Not Reportable Absolute Lymphocytes Not Reportable Absolute Monocytes Not Reportable Absolute Eosinophils Not Reportable Absolute Basophils Not Reportable Sodium 140.9 Potassium 3.9 Chloride 101 Carbon Dioxide 33 H Anion Gap 7 BUN 7 Creatinine 0.57 Est GFR ( Amer) > 60 Est GFR (Non-Af Amer) > 60 Glucose 123 H Calcium 8.8 Impressions: Chest X-Ray 10/14/16 00:00 IMPRESSION: Deterioration in the chest. Increasing basilar opacities, effusions, and vascular congestion. Assessment & Plan - Diagnosis (1) Sickle cell crisis Is this a current diagnosis for this admission?: YesPlan: Patient has complaints of chest, back, hip pain. He denies any productive cough. Denies any orthopnea or PND. Will continue IV fluids and IV Dilaudid. Patient is now followed at [facility] for his sickle cell disease. Patient denies any fevers or chills but does report a cough now. Will start on Ceftin p.o. he denies having any priaprism. He does however report that he normally takes Sudafed 60 mg nightly. (2) Anemia Qualifiers: Anemia type: acquired or hereditary hemolytic anemia Hemolytic anemia type: hereditary hemolytic anemia, unspecified Qualified Code(s): D58.9 - Hereditary hemolytic anemia, unspecified Is this a current diagnosis for this admission?: YesPlan: Hemoglobin is stable (3) Avascular necrosis of hip Qualifiers: Laterality: right Qualified Code(s): M87.051 - Idiopathic aseptic necrosis of right femur Is this a current diagnosis for this admission?: Yes (4) DVT prophylaxis Is this a current diagnosis for this admission?: YesPlan: We will give Lovenox - Time Time Spent with patient: 25-34 minutes - Inpatient Certification Medical Necessity: Need For IV Fluids, Need for Pain Control
[2016-10-14] MEDS: CEFUROXIME 500 MG TABLET PO SCH ×2 (12:37→17:59)
[2016-10-14] MEDS: BACLOFEN 10 MG TABLET PO SCH (21:09)
[2016-10-14] MEDS: PSEUDOEPHEDRINE HCL 30 MG TABLET PO SCH (21:09)
[2016-10-15] MEDS: HYDROMORPHONE HCL INJ/PF 2 MG/ML AMPULE IV PRN ×8 (01:13→19:57)
[2016-10-15] MEDS: DIPHENHYDRAMINE HCL 50 MG/ML VIAL IV PRN ×4 (03:20→19:57)
[2016-10-15] MEDS: NORMAL SALINE 1000 ML 1,000 ML IV PRN ×2 (06:15→23:40)
[2016-10-15 06:28] LABS: HEMATOCRIT 25.6 % (37.9-51.0); HEMOGLOBIN 8.6 g/dL (13.5-17.0); HGB HCT DIFFERENCE 0.2; MEAN CORPUSCULAR HEMOGLOBIN 32.6 pg (27.0-33.4); MEAN CORPUSCULAR HGB CONC 33.7 g/dL (32.0-36.0); MEAN CORPUSCULAR VOLUME 97 fl (80-97); RED BLOOD COUNT 2.65 10^6/uL (4.35-5.55); RED CELL DISTRIBUTION WIDTH 18.7 % (11.5-14.0); WHITE BLOOD COUNT 9.4 10^3/uL (4.0-10.5)
[2016-10-15 06:44] LABS: ANION GAP 8 (5-19); BLOOD UREA NITROGEN 6 mg/dL (7-20); CALCIUM 8.4 mg/dL (8.4-10.2); CARBON DIOXIDE 32 mmol/L (22-30); CHLORIDE 99 mmol/L (98-107); CREATININE RESULT 0.61 mg/dL (0.52-1.25); GLUCOSE 116 mg/dL (75-110); POTASSIUM 4.1 mmol/L (3.6-5.0); SODIUM 138.6 mmol/L (137-145)
[2016-10-15] MEDS: HYDROXYUREA 500 MG CAPSULE PO SCH (09:44)
[2016-10-15] MEDS: ENOXAPARIN SODIUM INJ 40 MG/0.4 ML DISP.SYRIN SUBCUT SCH (09:44)
[2016-10-15] MEDS: METHADONE HCL 10 MG TABLET PO SCH ×2 (09:46→23:40)
[2016-10-15] MEDS: CEFUROXIME 500 MG TABLET PO SCH ×2 (09:47→17:45)
[2016-10-15] MEDS: FOLIC ACID 1 MG TABLET PO SCH (09:47)
--- NOTE | 2016-10-15 10:38 | PDOC PROGRESS REPORT ---
Subjective Progress Note for:: 10/15/16 Subjective:: Complains of pain in his back and hips Physical Exam Vital Signs: Temp Pulse Resp BP Pulse Ox 99.0 F 93 16 142/86 H 100 10/15/16 07:52 10/15/16 07:52 10/15/16 07:52 10/15/16 07:52 10/15/16 08:00 Intake & Output 10/14/16 10/15/16 10/16/16 06:59 06:59 06:59 Intake Total 2920 91351 Output Total 3650 2750 Balance -730 68701 Weight 79.5 kg 68.3 kg General appearance: PRESENT: no acute distress Eye exam: PRESENT: conjunctiva pink. ABSENT: scleral icterus Mouth exam: PRESENT: moist, tongue midline Neck exam: ABSENT: carotid bruit, JVD, lymphadenopathy, thyromegaly Respiratory exam: PRESENT: clear to auscultation anastasiya. ABSENT: rales, rhonchi, wheezes Cardiovascular exam: PRESENT: RRR. ABSENT: diastolic murmur, rubs, systolic murmur GI/Abdominal exam: PRESENT: normal bowel sounds, soft. ABSENT: distended, guarding, mass, organolmegaly, rebound, tenderness Extremities exam: ABSENT: calf tenderness, clubbing, pedal edema Neurological exam: PRESENT: alert, awake, oriented to person, oriented to place , oriented to time, oriented to situation, CN II-XII grossly intact. ABSENT: motor sensory deficit Psychiatric exam: PRESENT: flat affect Skin exam: PRESENT: dry, intact, warm. ABSENT: cyanosis, rash Results Laboratory Results: 10/15/16 05:45 10/15/16 05:45 10/15/16 10/15/16 05:45 05:45 WBC 9.4 RBC 2.65 L Hgb 8.6 L Hct 25.6 L MCV 97 MCH 32.6 MCHC 33.7 RDW 18.7 H Plt Count 378 Sodium 138.6 Potassium 4.1 Chloride 99 Carbon Dioxide 32 H Anion Gap 8 BUN 6 L Creatinine 0.61 Est GFR ( Amer) > 60 Est GFR (Non-Af Amer) > 60 Glucose 116 H Calcium 8.4 Impressions: Chest X-Ray 10/14/16 00:00 IMPRESSION: Deterioration in the chest. Increasing basilar opacities, effusions, and vascular congestion. Assessment & Plan - Diagnosis (1) Sickle cell crisis Is this a current diagnosis for this admission?: YesPlan: Patient continues to have complaints of pain in spite of being on Dilaudid 4 mg every 2 hours. We will continue the IV fluids. Will ask oncology to evaluate to see if there is anything we can do. I offered the patient to be put on a LEMON PICKER however he has refused that. The patient is on scheduled methadone. He also is on Sudafed for prevention of priapism. (2) Anemia Qualifiers: Anemia type: acquired or hereditary hemolytic anemia Hemolytic anemia type: hereditary hemolytic anemia, unspecified Qualified Code(s): D58.9 - Hereditary hemolytic anemia, unspecified Is this a current diagnosis for this admission?: YesPlan: Hemoglobin is stable (3) Avascular necrosis of hip Qualifiers: Laterality: right Qualified Code(s): M87.051 - Idiopathic aseptic necrosis of right femur Is this a current diagnosis for this admission?: Yes (4) DVT prophylaxis Is this a current diagnosis for this admission?: YesPlan: We will give Lovenox - Time Time Spent with patient: 25-34 minutes - Inpatient Certification Medical Necessity: Need Close Monitoring Due to Risk of Patient Decompensation, Need For IV Fluids, Need for Pain Control
[2016-10-15] MEDS: OXYCODONE HCL IR 5 MG TABLET PO SCH ×2 (13:44→23:39)
[2016-10-15] MEDS: SENNOSIDES/DOCUSATE 8.6-50 MG 1 EACH TABLET PO SCH (17:45)
[2016-10-15] MEDS: DOCUSATE SODIUM 100 MG CAPSULE PO SCH (17:46)
[2016-10-15] MEDS: PSEUDOEPHEDRINE HCL 30 MG TABLET PO SCH (23:39)
[2016-10-15] MEDS: BACLOFEN 10 MG TABLET PO SCH (23:39)
[2016-10-16] MEDS: DIPHENHYDRAMINE HCL 50 MG/ML VIAL IV PRN ×5 (00:11→20:28)
[2016-10-16] MEDS: HYDROMORPHONE HCL INJ/PF 2 MG/ML AMPULE IV PRN ×10 (00:11→23:06)
[2016-10-16] MEDS: OXYCODONE HCL IR 5 MG TABLET PO SCH ×3 (05:40→23:06)
[2016-10-16] MEDS: NORMAL SALINE 1000 ML 1,000 ML IV PRN ×2 (05:41→20:29)
[2016-10-16 07:36] LABS: ANION GAP 7 (5-19); BLOOD UREA NITROGEN 6 mg/dL (7-20); CALCIUM 8.4 mg/dL (8.4-10.2); CARBON DIOXIDE 32 mmol/L (22-30); CHLORIDE 103 mmol/L (98-107); CREATININE RESULT 0.61 mg/dL (0.52-1.25); GLUCOSE 87 mg/dL (75-110); POTASSIUM 4.1 mmol/L (3.6-5.0); SODIUM 142.2 mmol/L (137-145)
[2016-10-16 08:14] LABS: HEMATOCRIT 23.3 % (37.9-51.0); HGB HCT DIFFERENCE 0.1; MEAN CORPUSCULAR HEMOGLOBIN 31.9 pg (27.0-33.4); MEAN CORPUSCULAR HGB CONC 33.3 g/dL (32.0-36.0); MEAN CORPUSCULAR VOLUME 96 fl (80-97); RED BLOOD COUNT 2.43 10^6/uL (4.35-5.55); RED CELL DISTRIBUTION WIDTH 19.2 % (11.5-14.0); WHITE BLOOD COUNT 7.4 10^3/uL (4.0-10.5)
[2016-10-16 08:26] LABS: HEMOGLOBIN 7.8 g/dL (13.5-17.0)
[2016-10-16 08:27] LABS: ANISOCYTOSIS 2+; BASOPHILS % (MANUAL) 0 % (0-2); EOSINOPHILS % (MANUAL) 1 % (0-6); HOWELL-JOLLY BODIES PRESENT; HYPOCHROMASIA 1+; LYMPHOCYTES % (MANUAL) 20 % (13-45); NUCLEATED RED BLOOD CELLS 2 /100 WBC (0); OVALOCYTES SLIGHT; POIKILOCYTOSIS 1+; POLYCHROMASIA 1+; SCHISTOCYTES SLIGHT; SPHEROCYTES SLIGHT; TARGET CELLS 1+; TOTAL CELLS COUNTED 100
--- NOTE | 2016-10-16 08:35 | PDOC CONSULTATION ---
Consultation Consult Date: 10/16/16 Attending physician:: JIAN BOLANOS Consult reason:: Sickle cell disease with crisis History of Present Illness Admission Date/PCP: 10/11/16 11:16 Patient complains of: Pain History of Present Illness: 35-year-old male with known history of sickle cell disease, here with crisis, it has been several years since he has been here. He has been following Dr. Hobson at [facility]. So recently has been admitted there. He is currently on Dilaudid. Still having considerable pain. Past Medical History Cardiac Medical History: Denies: Atrial Fibrillation, Congestive Heart Failure, Coronary Artery Disease Pulmonary Medical History: Denies: Bronchitis, Tuberculosis Neurological Medical History: Reports: Seizures Endocrine Medical History: Reports: None Denies: Diabetes Mellitus Type 1 Renal/ Medical History: Reports: None Malignancy Medical History: Reports: None GI Medical History: Reports: None Psychiatric Medical History: Denies: Depression Hematology: Reports: Anemia, Sickle Cell Disease Denies: Hemophilia Infectious Medical History: Reports: None Past Surgical History Past Surgical History: Reports: Appendectomy, Vascular Surgery - port placement Social History Lives with: Spouse/Significant other Smoking Status: Former Smoker Number of Years Smokin Frequency of Alcohol Use: None Hx Recreational Drug Use: No Drugs: None Hx Prescription Drug Abuse: No - Advance Directive Resuscitation Status: Full Code Family History Family History: Other Parental Family History Reviewed: Yes Children Family History Reviewed: Yes Sibling(s) Family History Reviewed.: Yes Medication/Allergy Home Medications: Baclofen [Baclofen 10 mg Tablet] 10 mg PO QHS 10/11/16 Folic Acid 1 mg PO DAILY 10/11/16 Hydroxyurea [Hydrea 500 Mg Capsule] 1,500 mg PO MOWEFR@1000 10/11/16 Hydroxyurea [Hydrea 500 Mg Capsule] 2,000 mg PO SUTUTHSA@1000 10/11/16 Ibuprofen [Motrin 600 mg Tablet] 600 mg PO QIDP PRN 10/11/16 Methadone HCl [Dolophine Hcl] 5 mg PO BID 10/11/16 Moxifloxacin HCl [Vigamox 0.5% Oph Soln 3 ml] 1 drop OS QID 10/11/16 Oxycodone HCl [Oxycodone HCl 10 MG Tablet] 10 mg PO Q8HP PRN 10/11/16 Allergies/Adverse Reactions: famotidine [From Pepcid] Allergy (Severe, Verified 07/10/16 09:56) Anaphylaxis ketorolac tromethamine [From Toradol] Allergy (Severe, Verified 07/10/16 09:56) levofloxacin [From Levaquin] Allergy (Severe, Verified 07/10/16 09:56) meperidine HCl [From Demerol] Allergy (Severe, Verified 07/10/16 09:56) morphine [Morphine] Allergy (Severe, Verified 07/10/16 09:56) tramadol HCl [From Ultram] Allergy (Severe, Verified 07/10/16 09:56) amoxicillin [Amoxicillin] Allergy (Verified 07/10/16 09:56) fentanyl [Fentanyl] Allergy (Verified 07/10/16 09:56) latex [Latex] Allergy (Verified 07/10/16 09:56) ondansetron HCl [From Zofran] Allergy (Verified 07/10/16 09:56) Review of Systems Constitutional: ABSENT: chills, fever(s), headache(s), weight gain, weight loss Eyes: ABSENT: visual disturbances Ears: ABSENT: hearing changes Cardiovascular: ABSENT: chest pain, dyspnea on exertion, edema, orthropnea, palpitations Respiratory: ABSENT: cough, hemoptysis Gastrointestinal: ABSENT: abdominal pain, constipation, diarrhea, hematemesis, hematochezia, nausea, vomiting Genitourinary: ABSENT: dysuria, hematuria Musculoskeletal: ABSENT: joint swelling Integumentary: ABSENT: rash, wounds Neurological: ABSENT: abnormal gait, abnormal speech, confusion, dizziness, focal weakness, syncope Psychiatric: ABSENT: anxiety, depression, homidical ideation, suicidal ideation Endocrine: ABSENT: cold intolerance, heat intolerance, polydipsia, polyuria Hematologic/Lymphatic: ABSENT: easy bleeding, easy bruising Physical Exam Vital Signs: Temp Pulse Resp BP Pulse Ox 98.6 F 80 16 128/85 H 100 10/15/16 23:20 10/15/16 23:20 10/15/16 23:20 10/15/16 23:20 10/15/16 23:20 Intake & Output 10/15/16 10/16/16 10/17/16 06:59 06:59 06:59 Intake Total 31599 4496 Output Total 2750 4000 Balance 91123 496 Weight 68.3 kg 68.1 kg General appearance: PRESENT: no acute distress, well-developed, well-nourished Head exam: PRESENT: atraumatic, normocephalic Eye exam: PRESENT: conjunctiva pink, EOMI, PERRLA. ABSENT: scleral icterus Ear exam: PRESENT: normal external ear exam Mouth exam: PRESENT: moist, tongue midline Neck exam: ABSENT: carotid bruit, JVD, lymphadenopathy, thyromegaly Respiratory exam: PRESENT: clear to auscultation anastasiya. ABSENT: rales, rhonchi, wheezes Cardiovascular exam: PRESENT: RRR. ABSENT: diastolic murmur, rubs, systolic murmur Pulses: PRESENT: normal dorsalis pedis pul Vascular exam: PRESENT: normal capillary refill GI/Abdominal exam: PRESENT: normal bowel sounds, soft. ABSENT: distended, guarding, mass, organolmegaly, rebound, tenderness Rectal exam: PRESENT: deferred Extremities exam: PRESENT: full ROM. ABSENT: calf tenderness, clubbing, pedal edema Neurological exam: PRESENT: alert, awake, oriented to person, oriented to place , oriented to time, oriented to situation, CN II-XII grossly intact. ABSENT: motor sensory deficit Psychiatric exam: PRESENT: appropriate affect, normal mood. ABSENT: homicidal ideation, suicidal ideation Skin exam: PRESENT: dry, intact, warm. ABSENT: cyanosis, rash Results Laboratory Results: 10/16/16 05:40 10/16/16 05:40 10/16/16 10/16/16 05:40 05:40 WBC 7.4 RBC 2.43 L Hgb 7.8 L Hct 23.3 L MCV 96 MCH 31.9 MCHC 33.3 RDW 19.2 H Plt Count 364 Seg Neutrophils % Not Reportable Lymphocytes % Not Reportable Monocytes % Not Reportable Eosinophils % Not Reportable Basophils % Not Reportable Absolute Neutrophils Not Reportable Absolute Lymphocytes Not Reportable Absolute Monocytes Not Reportable Absolute Eosinophils Not Reportable Absolute Basophils Not Reportable Sodium 142.2 Potassium 4.1 Chloride 103 Carbon Dioxide 32 H Anion Gap 7 BUN 6 L Creatinine 0.61 Est GFR ( Amer) > 60 Est GFR (Non-Af Amer) > 60 Glucose 87 Calcium 8.4 Impressions: Chest X-Ray 10/14/16 00:00 IMPRESSION: Deterioration in the chest. Increasing basilar opacities, effusions, and vascular congestion. Assessment & Plan - Diagnosis (1) Sickle cell crisis Is this a current diagnosis for this admission?: YesPlan: Patient with sickle cell crisis, I will keep the pain medication the same for now. His hemoglobin has decreased, to 7.8 but I would wait till he gets to the low sevens before transfusion so hold on transfusion today. Continue with other supportive measures. - Time Time Spent: 50 to 70 Minutes Critical Time spent with patient: 25-34 minutes
[2016-10-16] MEDS: METHADONE HCL 10 MG TABLET PO SCH ×2 (10:21→23:06)
[2016-10-16] MEDS: DOCUSATE SODIUM 100 MG CAPSULE PO SCH ×2 (10:21→17:43)
[2016-10-16] MEDS: HYDROXYUREA 500 MG CAPSULE PO SCH (10:21)
[2016-10-16] MEDS: SENNOSIDES/DOCUSATE 8.6-50 MG 1 EACH TABLET PO SCH ×2 (10:22→17:43)
[2016-10-16] MEDS: CEFUROXIME 500 MG TABLET PO SCH ×2 (10:22→17:42)
[2016-10-16] MEDS: FOLIC ACID 1 MG TABLET PO SCH (10:22)
[2016-10-16] MEDS: ENOXAPARIN SODIUM INJ 40 MG/0.4 ML DISP.SYRIN SUBCUT SCH (10:24)
--- NOTE | 2016-10-16 13:16 | PDOC PROGRESS REPORT ---
Subjective Progress Note for:: 10/16/16 Subjective:: Patient complains of pleuritic right lower chest wall pain. He is mildly short of breath. He feels like this is improved since being started on antibiotics 2 days ago. He denies fever, chills, hemoptysis, abdominal pain. Physical Exam Vital Signs: Temp Pulse Resp BP Pulse Ox 98.6 F 80 16 128/85 H 98 10/15/16 23:20 10/15/16 23:20 10/15/16 23:20 10/15/16 23:20 10/16/16 09:28 Intake & Output 10/15/16 10/16/16 10/17/16 06:59 06:59 06:59 Intake Total 78227 4496 Output Total 2750 4000 Balance 64214 496 Weight 68.3 kg 68.1 kg GENERAL: No acute distress HEENT: Conjunctiva clear, nonicteric, moist mucous membranes, no JVD, midline trachea RESPIRATORY: Clear to auscultation bilaterally, no wheezes, no rhonchi CARDIAC: Regular rate and rhythm, no murmurs/gallops/rubs ABDOMEN: Soft, nondistended, nontender, positive bowel sounds, no rebound, no guarding EXTREMETIES: No edema, cyanosis, clubbing NEUROLOGIC: Alert, oriented to person/place/time, CN's grossly intact, no focal deficits SKIN: No rash, wounds PSYCH: Normal mood, normal affect Results Laboratory Results: 10/16/16 05:40 10/16/16 05:40 10/16/16 10/16/16 05:40 05:40 WBC 7.4 RBC 2.43 L Hgb 7.8 L Hct 23.3 L MCV 96 MCH 31.9 MCHC 33.3 RDW 19.2 H Plt Count 364 Seg Neutrophils % Not Reportable Lymphocytes % Not Reportable Monocytes % Not Reportable Eosinophils % Not Reportable Basophils % Not Reportable Absolute Neutrophils Not Reportable Absolute Lymphocytes Not Reportable Absolute Monocytes Not Reportable Absolute Eosinophils Not Reportable Absolute Basophils Not Reportable Sodium 142.2 Potassium 4.1 Chloride 103 Carbon Dioxide 32 H Anion Gap 7 BUN 6 L Creatinine 0.61 Est GFR ( Amer) > 60 Est GFR (Non-Af Amer) > 60 Glucose 87 Calcium 8.4 10/11/16 12:00 Blood Blood Culture - Final NO GROWTH IN 5 DAYS Impressions: Chest X-Ray 10/14/16 00:00 IMPRESSION: Deterioration in the chest. Increasing basilar opacities, effusions, and vascular congestion. Assessment & Plan - Diagnosis (1) Sickle cell crisis Is this a current diagnosis for this admission?: YesPlan: Continue IV fluids, analgesic, oxygen. Continue to treat pneumonia. (2) Pneumonia Is this a current diagnosis for this admission?: YesPlan: Patient has bibasilar airspace disease versus scarring. Likely bacterial. Continue Ceftin. (3) Anemia Qualifiers: Anemia type: acquired or hereditary hemolytic anemia Hemolytic anemia type: hereditary hemolytic anemia, unspecified Qualified Code(s): D58.9 - Hereditary hemolytic anemia, unspecified Is this a current diagnosis for this admission?: YesPlan: Hold off on transfusion until hemoglobin in the low 7's per hematology. (4) Avascular necrosis of hip Qualifiers: Laterality: right Qualified Code(s): M87.051 - Idiopathic aseptic necrosis of right femur Is this a current diagnosis for this admission?: Yes - Time Time Spent with patient: 25-34 minutes Anticipated discharge: Home Within: within 72 hours
[2016-10-16] MEDS: PSEUDOEPHEDRINE HCL 30 MG TABLET PO SCH (23:03)
[2016-10-16] MEDS: BACLOFEN 10 MG TABLET PO SCH (23:05)
[2016-10-17] MEDS: HYDROMORPHONE HCL INJ/PF 2 MG/ML AMPULE IV PRN ×10 (01:32→23:27)
[2016-10-17] MEDS: DIPHENHYDRAMINE HCL 50 MG/ML VIAL IV PRN ×4 (01:32→20:23)
[2016-10-17 04:22] LABS: HEMATOCRIT 22.7 % (37.9-51.0); HGB HCT DIFFERENCE 0.1; MEAN CORPUSCULAR HEMOGLOBIN 31.6 pg (27.0-33.4); MEAN CORPUSCULAR HGB CONC 33.5 g/dL (32.0-36.0); MEAN CORPUSCULAR VOLUME 94 fl (80-97); RED BLOOD COUNT 2.41 10^6/uL (4.35-5.55); RED CELL DISTRIBUTION WIDTH 19.9 % (11.5-14.0); WHITE BLOOD COUNT 7.2 10^3/uL (4.0-10.5)
[2016-10-17 04:42] LABS: ANION GAP 10 (5-19); BLOOD UREA NITROGEN 7 mg/dL (7-20); CALCIUM 8.4 mg/dL (8.4-10.2); CARBON DIOXIDE 32 mmol/L (22-30); CHLORIDE 101 mmol/L (98-107); CREATININE RESULT 0.58 mg/dL (0.52-1.25); GLUCOSE 98 mg/dL (75-110); POTASSIUM 3.7 mmol/L (3.6-5.0); SODIUM 142.7 mmol/L (137-145)
[2016-10-17 05:01] LABS: HEMOGLOBIN 7.6 g/dL (13.5-17.0)
[2016-10-17] MEDS: NORMAL SALINE 1000 ML 1,000 ML IV PRN ×2 (06:09→23:27)
[2016-10-17] MEDS: OXYCODONE HCL IR 5 MG TABLET PO SCH ×3 (06:10→22:02)
[2016-10-17] MEDS: CEFUROXIME 500 MG TABLET PO SCH ×2 (06:10→18:07)
[2016-10-17] MEDS ORDERED: NORMAL SALINE 250 ML IV PRN ×2 (07:29)
--- NOTE | 2016-10-17 08:19 | PDOC PROGRESS REPORT ---
Subjective Progress Note for:: 10/17/16 Subjective:: Patient still with considerable pain though slightly better than yesterday. Hemoglobin is down to 7.6. Physical Exam Vital Signs: Temp Pulse Resp BP Pulse Ox 99.0 F 84 16 131/87 H 100 10/16/16 23:30 10/16/16 23:30 10/16/16 23:30 10/16/16 23:30 10/16/16 23:30 Intake & Output 10/16/16 10/17/16 10/18/16 06:59 06:59 06:59 Intake Total 4496 5029 Output Total 4000 2400 Balance 496 2629 Weight 68.1 kg 72.1 kg General appearance: PRESENT: no acute distress, well-developed, well-nourished Head exam: PRESENT: atraumatic, normocephalic Eye exam: PRESENT: conjunctiva pink, EOMI, PERRLA. ABSENT: scleral icterus Ear exam: PRESENT: normal external ear exam Mouth exam: PRESENT: moist, tongue midline Neck exam: ABSENT: carotid bruit, JVD, lymphadenopathy, thyromegaly Respiratory exam: PRESENT: clear to auscultation anasatsiya. ABSENT: rales, rhonchi, wheezes Cardiovascular exam: PRESENT: RRR. ABSENT: diastolic murmur, rubs, systolic murmur Pulses: PRESENT: normal dorsalis pedis pul Vascular exam: PRESENT: normal capillary refill GI/Abdominal exam: PRESENT: normal bowel sounds, soft. ABSENT: distended, guarding, mass, organolmegaly, rebound, tenderness Rectal exam: PRESENT: deferred Extremities exam: PRESENT: full ROM. ABSENT: calf tenderness, clubbing, pedal edema Neurological exam: PRESENT: alert, awake, oriented to person, oriented to place , oriented to time, oriented to situation, CN II-XII grossly intact. ABSENT: motor sensory deficit Psychiatric exam: PRESENT: appropriate affect, normal mood. ABSENT: homicidal ideation, suicidal ideation Skin exam: PRESENT: dry, intact, warm. ABSENT: cyanosis, rash Results Laboratory Results: 10/17/16 04:05 10/17/16 04:05 10/16/16 10/17/16 10/17/16 05:40 04:05 04:05 WBC 7.4 7.2 RBC 2.43 L 2.41 L Hgb 7.8 L 7.6 L Hct 23.3 L 22.7 L MCV 96 94 MCH 31.9 31.6 MCHC 33.3 33.5 RDW 19.2 H 19.9 H Plt Count 364 369 Seg Neutrophils % Not Reportable Lymphocytes % Not Reportable Monocytes % Not Reportable Eosinophils % Not Reportable Basophils % Not Reportable Absolute Neutrophils Not Reportable Absolute Lymphocytes Not Reportable Absolute Monocytes Not Reportable Absolute Eosinophils Not Reportable Absolute Basophils Not Reportable Sodium 142.7 Potassium 3.7 Chloride 101 Carbon Dioxide 32 H Anion Gap 10 BUN 7 Creatinine 0.58 Est GFR ( Amer) > 60 Est GFR (Non-Af Amer) > 60 Glucose 98 Calcium 8.4 10/11/16 14:42 Blood Blood Culture - Final NO GROWTH IN 5 DAYS 10/11/16 12:00 Blood Blood Culture - Final NO GROWTH IN 5 DAYS Impressions: Chest X-Ray 10/14/16 00:00 IMPRESSION: Deterioration in the chest. Increasing basilar opacities, effusions, and vascular congestion. Assessment & Plan - Diagnosis (1) Sickle cell crisis Is this a current diagnosis for this admission?: YesPlan: Today we will transfuse 2 units of packed red blood cells, I see the hospital team ordered 1 unit I added 1 and add a dose of Benadryl and Lasix, continue with current pain regimen, continue with other supportive care. He will likely need several more days of inpatient stay. - Time Time Spent with patient: 25-34 minutes Critical Time spent with patient: 25-34 minutes
[2016-10-17 08:57] LABS: APPEARANCE,URINE CLEAR; BILIRUBIN,URINE NEGATIVE (NEGATIVE); GLUCOSE, URINE NEGATIVE (NEGATIVE); KETONES,URINE NEGATIVE (NEGATIVE); LEUKOCYTE ESTERASE,URINE NEGATIVE (NEGATIVE); NITRITE,URINE NEGATIVE (NEGATIVE); PROTEIN,URINE NEGATIVE (NEGATIVE); URINE SPECIFIC GRAVITY 1.006; UROBILINOGEN,URINE NEGATIVE mg/dL (<2.0)
[2016-10-17] MEDS ORDERED: ACETAMINOPHEN 325 MG TABLET PO PRN (09:04)
[2016-10-17] MEDS ORDERED: DIPHENHYDRAMINE HCL 50 MG/ML VIAL IV PRN (09:04)
[2016-10-17] MEDS ORDERED: FUROSEMIDE INJ/PF 20 MG/2 ML SDV IV PRN (09:14)
[2016-10-17] MEDS: FOLIC ACID 1 MG TABLET PO SCH (09:44)
[2016-10-17] MEDS: SENNOSIDES/DOCUSATE 8.6-50 MG 1 EACH TABLET PO SCH ×2 (09:44→18:07)
[2016-10-17] MEDS: DOCUSATE SODIUM 100 MG CAPSULE PO SCH ×2 (09:44→18:07)
[2016-10-17] MEDS: METHADONE HCL 10 MG TABLET PO SCH ×2 (09:45→22:02)
[2016-10-17] MEDS: HYDROXYUREA 500 MG CAPSULE PO SCH (09:46)
[2016-10-17] MEDS: ENOXAPARIN SODIUM INJ 40 MG/0.4 ML DISP.SYRIN SUBCUT SCH (10:36)
--- NOTE | 2016-10-17 14:36 | PDOC PROGRESS REPORT ---
Subjective Progress Note for:: 10/17/16 Subjective:: Patient has continued pain notably in the chest wall bilaterally worse with inspiration. He has dyspnea on exertion. He denies fever, chills. Physical Exam Vital Signs: Temp Pulse Resp BP Pulse Ox 98.7 F 91 20 174/92 H 100 10/17/16 12:48 10/17/16 12:48 10/17/16 12:48 10/17/16 12:48 10/17/16 12:48 Intake & Output 10/16/16 10/17/16 10/18/16 06:59 06:59 06:59 Intake Total 4496 5029 300 Output Total 4000 2400 Balance 496 2629 300 Weight 68.1 kg 72.1 kg GENERAL: No acute distress HEENT: Conjunctiva clear, nonicteric, moist mucous membranes, no JVD, midline trachea RESPIRATORY: Clear to auscultation bilaterally, no wheezes, no rhonchi CARDIAC: Regular rate and rhythm, no murmurs/gallops/rubs ABDOMEN: Soft, nondistended, nontender, positive bowel sounds, no rebound, no guarding EXTREMETIES: No edema, cyanosis, clubbing NEUROLOGIC: Alert, oriented to person/place/time, CN's grossly intact, no focal deficits SKIN: No rash, wounds PSYCH: Normal mood, normal affect Results Laboratory Results: 10/17/16 04:05 10/17/16 04:05 10/17/16 10/17/16 10/17/16 04:05 04:05 07:48 WBC 7.2 RBC 2.41 L Hgb 7.6 L Hct 22.7 L MCV 94 MCH 31.6 MCHC 33.5 RDW 19.9 H Plt Count 369 Sodium 142.7 Potassium 3.7 Chloride 101 Carbon Dioxide 32 H Anion Gap 10 BUN 7 Creatinine 0.58 Est GFR ( Amer) > 60 Est GFR (Non-Af Amer) > 60 Glucose 98 Calcium 8.4 Urine Color Urine Appearance Urine pH Ur Specific [place] Urine Protein Urine Glucose (UA) Urine Ketones Urine Blood Urine Nitrite Ur Leukocyte Esterase Urine WBC (Auto) Urine RBC (Auto) Blood Type O POSITIVE Antibody Screen NEGATIVE 10/17/16 08:13 WBC RBC Hgb Hct MCV MCH MCHC RDW Plt Count Sodium Potassium Chloride Carbon Dioxide Anion Gap BUN Creatinine Est GFR ( Amer) Est GFR (Non-Af Amer) Glucose Calcium Urine Color YELLOW Urine Appearance CLEAR Urine pH 8.0 Ur Specific [place] 1.006 Urine Protein NEGATIVE Urine Glucose (UA) NEGATIVE Urine Ketones NEGATIVE Urine Blood NEGATIVE Urine Nitrite NEGATIVE Ur Leukocyte Esterase NEGATIVE Urine WBC (Auto) 0 Urine RBC (Auto) 0 Blood Type Antibody Screen 10/11/16 14:42 Blood Blood Culture - Final NO GROWTH IN 5 DAYS 10/11/16 12:00 Blood Blood Culture - Final NO GROWTH IN 5 DAYS Impressions: Chest X-Ray 10/14/16 00:00 IMPRESSION: Deterioration in the chest. Increasing basilar opacities, effusions, and vascular congestion. Assessment & Plan - Diagnosis (1) Sickle cell crisis Is this a current diagnosis for this admission?: YesPlan: Continue IV fluids, analgesic, oxygen. Continue to treat pneumonia. Transfuse 2 units PRBC per hematology recommendation. (2) Pneumonia Is this a current diagnosis for this admission?: YesPlan: Patient has bibasilar airspace disease versus scarring. Likely bacterial. Continue Ceftin. 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
[2016-10-17] MEDS: BACLOFEN 10 MG TABLET PO SCH (22:02)
[2016-10-17] MEDS: PSEUDOEPHEDRINE HCL 30 MG TABLET PO SCH (22:02)
[2016-10-17 22:34] LABS: HEMATOCRIT 31.1 % (37.9-51.0); HGB HCT DIFFERENCE 0.4; MEAN CORPUSCULAR HEMOGLOBIN 31.1 pg (27.0-33.4); MEAN CORPUSCULAR HGB CONC 33.7 g/dL (32.0-36.0); MEAN CORPUSCULAR VOLUME 93 fl (80-97); RED BLOOD COUNT 3.36 10^6/uL (4.35-5.55); RED CELL DISTRIBUTION WIDTH 19.6 % (11.5-14.0); WHITE BLOOD COUNT 8.2 10^3/uL (4.0-10.5)
[2016-10-17 22:49] LABS: HEMOGLOBIN 10.5 g/dL (13.5-17.0)
[2016-10-17 23:00] LABS: BASOPHILS % (MANUAL) 1 % (0-2); EOSINOPHILS % (MANUAL) 6 % (0-6); LYMPHOCYTES % (MANUAL) 19 % (13-45); NUCLEATED RED BLOOD CELLS 2 /100 WBC (0); TOTAL CELLS COUNTED 100
[2016-10-17 23:02] LABS: ANISOCYTOSIS 2+; OVALOCYTES SLIGHT; POIKILOCYTOSIS 1+; POLYCHROMASIA 1+
[2016-10-17 23:03] LABS: PLATELET CLUMPS PRESENT; TARGET CELLS 2+; TEAR DROP CELLS SLIGHT
[2016-10-18] MEDS: HYDROMORPHONE HCL INJ/PF 2 MG/ML AMPULE IV PRN ×8 (01:29→23:58)
[2016-10-18] MEDS: DIPHENHYDRAMINE HCL 50 MG/ML VIAL IV PRN ×4 (01:29→20:20)
[2016-10-18] MEDS: OXYCODONE HCL IR 5 MG TABLET PO SCH ×3 (05:48→21:28)
[2016-10-18] MEDS: NORMAL SALINE 1000 ML 1,000 ML IV PRN ×3 (05:48→20:20)
[2016-10-18] MEDS: CEFUROXIME 500 MG TABLET PO SCH ×2 (05:48→17:26)
[2016-10-18 06:36] LABS: ABSOLUTE BASOPHILS # (AUTO) 0.1 10^3/uL (0.0-0.2); ABSOLUTE EOSINOPHILS # (AUTO) 0.2 10^3/uL (0.0-0.6); ABSOLUTE LYMPHOCYTES (AUTO) 1.8 10^3/uL (0.5-4.7); ABSOLUTE MONOCYTES (AUTO) 0.7 10^3/uL (0.1-1.4); ABSOLUTE NEUT (AUTO) 3.9 10^3/uL (1.7-8.2); BASOPHILS % (AUTO) 1.1 % (0-2); EOSINOPHILS % (AUTO) 2.5 % (0-6); HEMATOCRIT 26.8 % (37.9-51.0); HEMOGLOBIN 9.3 g/dL (13.5-17.0); HGB HCT DIFFERENCE 1.1; LYMPHOCYTES % (AUTO) 26.8 % (13-45); MEAN CORPUSCULAR HEMOGLOBIN 32.1 pg (27.0-33.4); MEAN CORPUSCULAR HGB CONC 34.5 g/dL (32.0-36.0); MEAN CORPUSCULAR VOLUME 93 fl (80-97); MONOCYTES % (AUTO) 10.8 % (3-13); RED BLOOD COUNT 2.89 10^6/uL (4.35-5.55); RED CELL DISTRIBUTION WIDTH 19.7 % (11.5-14.0); SEGMENTED NEUTROPHILS % (AUTO) 58.8 % (42-78); WHITE BLOOD COUNT 6.6 10^3/uL (4.0-10.5)
[2016-10-18 06:45] LABS: ANION GAP 10 (5-19); BLOOD UREA NITROGEN 8 mg/dL (7-20); CALCIUM 8.5 mg/dL (8.4-10.2); CARBON DIOXIDE 30 mmol/L (22-30); CHLORIDE 102 mmol/L (98-107); CREATININE RESULT 0.58 mg/dL (0.52-1.25); GLUCOSE 94 mg/dL (75-110); SODIUM 141.9 mmol/L (137-145)
--- NOTE | 2016-10-18 08:09 | PDOC PROGRESS REPORT ---
Subjective Progress Note for:: 10/18/16 Subjective:: Feeling a little bit better but still with considerable pain. Pain is in bilateral ribs. Physical Exam Vital Signs: Temp Pulse Resp BP Pulse Ox 98.1 F 70 18 131/86 H 100 10/18/16 00:00 10/18/16 00:00 10/18/16 00:00 10/18/16 00:00 10/18/16 00:16 Intake & Output 10/17/16 10/18/16 10/19/16 06:59 06:59 06:59 Intake Total 5029 3691 Output Total 2400 3200 Balance 2629 491 Weight 72.1 kg 72 kg General appearance: PRESENT: no acute distress, well-developed, well-nourished Head exam: PRESENT: atraumatic, normocephalic Eye exam: PRESENT: conjunctiva pink, EOMI, PERRLA. ABSENT: scleral icterus Ear exam: PRESENT: normal external ear exam Mouth exam: PRESENT: moist, tongue midline Neck exam: ABSENT: carotid bruit, JVD, lymphadenopathy, thyromegaly Respiratory exam: PRESENT: clear to auscultation anastasiya. ABSENT: rales, rhonchi, wheezes Cardiovascular exam: PRESENT: RRR. ABSENT: diastolic murmur, rubs, systolic murmur Pulses: PRESENT: normal dorsalis pedis pul Vascular exam: PRESENT: normal capillary refill GI/Abdominal exam: PRESENT: normal bowel sounds, soft. ABSENT: distended, guarding, mass, organolmegaly, rebound, tenderness Rectal exam: PRESENT: deferred Extremities exam: PRESENT: full ROM. ABSENT: calf tenderness, clubbing, pedal edema Neurological exam: PRESENT: alert, awake, oriented to person, oriented to place , oriented to time, oriented to situation, CN II-XII grossly intact. ABSENT: motor sensory deficit Psychiatric exam: PRESENT: appropriate affect, normal mood. ABSENT: homicidal ideation, suicidal ideation Skin exam: PRESENT: dry, intact, warm. ABSENT: cyanosis, rash Results Laboratory Results: 10/18/16 05:15 10/18/16 05:15 10/17/16 10/17/16 10/17/16 07:48 08:13 22:30 WBC 8.2 RBC 3.36 L Hgb 10.5 L D Hct 31.1 L MCV 93 MCH 31.1 MCHC 33.7 RDW 19.6 H Plt Count 394 Seg Neutrophils % Not Reportable Lymphocytes % Not Reportable Monocytes % Not Reportable Eosinophils % Not Reportable Basophils % Not Reportable Absolute Neutrophils Not Reportable Absolute Lymphocytes Not Reportable Absolute Monocytes Not Reportable Absolute Eosinophils Not Reportable Absolute Basophils Not Reportable Sodium Potassium Chloride Carbon Dioxide Anion Gap BUN Creatinine Est GFR ( Amer) Est GFR (Non-Af Amer) Glucose Calcium Urine Color YELLOW Urine Appearance CLEAR Urine pH 8.0 Ur Specific [place] 1.006 Urine Protein NEGATIVE Urine Glucose (UA) NEGATIVE Urine Ketones NEGATIVE Urine Blood NEGATIVE Urine Nitrite NEGATIVE Ur Leukocyte Esterase NEGATIVE Urine WBC (Auto) 0 Urine RBC (Auto) 0 Blood Type O POSITIVE Antibody Screen NEGATIVE 10/18/16 10/18/16 05:15 05:15 WBC 6.6 RBC 2.89 L Hgb 9.3 L Hct 26.8 L MCV 93 MCH 32.1 MCHC 34.5 RDW 19.7 H Plt Count 396 Seg Neutrophils % 58.8 Lymphocytes % 26.8 Monocytes % 10.8 Eosinophils % 2.5 Basophils % 1.1 Absolute Neutrophils 3.9 Absolute Lymphocytes 1.8 Absolute Monocytes 0.7 Absolute Eosinophils 0.2 Absolute Basophils 0.1 Sodium 141.9 Potassium 4.0 Chloride 102 Carbon Dioxide 30 Anion Gap 10 BUN 8 Creatinine 0.58 Est GFR ( Amer) > 60 Est GFR (Non-Af Amer) > 60 Glucose 94 Calcium 8.5 Urine Color Urine Appearance Urine pH Ur Specific [place] Urine Protein Urine Glucose (UA) Urine Ketones Urine Blood Urine Nitrite Ur Leukocyte Esterase Urine WBC (Auto) Urine RBC (Auto) Blood Type Antibody Screen Impressions: Chest X-Ray 10/14/16 00:00 IMPRESSION: Deterioration in the chest. Increasing basilar opacities, effusions, and vascular congestion. Assessment & Plan - Diagnosis (1) Sickle cell crisis Is this a current diagnosis for this admission?: YesPlan: Still with significant pain, I will increase the Dilaudid to 5 mg every 2 hours. Continue with other supportive measures. He had a good increase in hemoglobin from transfusion. I have encouraged him to get up and move around a little bit. - Time Time Spent with patient: 25-34 minutes Critical Time spent with patient: 25-34 minutes
[2016-10-18] MEDS: FOLIC ACID 1 MG TABLET PO SCH (09:27)
[2016-10-18] MEDS: SENNOSIDES/DOCUSATE 8.6-50 MG 1 EACH TABLET PO SCH ×2 (09:27→17:27)
[2016-10-18] MEDS: HYDROXYUREA 500 MG CAPSULE PO SCH (09:27)
[2016-10-18] MEDS: DOCUSATE SODIUM 100 MG CAPSULE PO SCH ×2 (09:27→17:26)
[2016-10-18] MEDS: ENOXAPARIN SODIUM INJ 40 MG/0.4 ML DISP.SYRIN SUBCUT SCH (09:28)
[2016-10-18] MEDS: METHADONE HCL 10 MG TABLET PO SCH ×2 (09:34→21:28)
--- NOTE | 2016-10-18 11:40 | PDOC PROGRESS REPORT ---
Subjective Progress Note for:: 10/18/16 Subjective:: Patient has continued pain and hematology has increased his IV Dilaudid.. He has dyspnea on exertion. He denies fever, chills. Physical Exam Vital Signs: Temp Pulse Resp BP Pulse Ox 98.5 F 66 13 139/89 H 100 10/18/16 08:06 10/18/16 08:06 10/18/16 08:06 10/18/16 08:06 10/18/16 08:06 Intake & Output 10/17/16 10/18/16 10/19/16 06:59 06:59 06:59 Intake Total 5029 3691 Output Total 2400 3200 Balance 2629 491 Weight 72.1 kg 72 kg GENERAL: No acute distress HEENT: Conjunctiva clear, nonicteric, moist mucous membranes, no JVD, midline trachea RESPIRATORY: Clear to auscultation bilaterally, no wheezes, no rhonchi CARDIAC: Regular rate and rhythm, no murmurs/gallops/rubs ABDOMEN: Soft, nondistended, nontender, positive bowel sounds, no rebound, no guarding EXTREMETIES: No edema, cyanosis, clubbing NEUROLOGIC: Alert, oriented to person/place/time, CN's grossly intact, no focal deficits SKIN: No rash, wounds PSYCH: Normal mood, normal affect Results Laboratory Results: 10/18/16 05:15 10/18/16 05:15 10/17/16 10/17/16 10/18/16 07:48 22:30 05:15 WBC 8.2 6.6 RBC 3.36 L 2.89 L Hgb 10.5 L D 9.3 L Hct 31.1 L 26.8 L MCV 93 93 MCH 31.1 32.1 MCHC 33.7 34.5 RDW 19.6 H 19.7 H Plt Count 394 396 Seg Neutrophils % Not Reportable 58.8 Lymphocytes % Not Reportable 26.8 Monocytes % Not Reportable 10.8 Eosinophils % Not Reportable 2.5 Basophils % Not Reportable 1.1 Absolute Neutrophils Not Reportable 3.9 Absolute Lymphocytes Not Reportable 1.8 Absolute Monocytes Not Reportable 0.7 Absolute Eosinophils Not Reportable 0.2 Absolute Basophils Not Reportable 0.1 Sodium Potassium Chloride Carbon Dioxide Anion Gap BUN Creatinine Est GFR ( Amer) Est GFR (Non-Af Amer) Glucose Calcium Blood Type O POSITIVE Antibody Screen NEGATIVE 10/18/16 05:15 WBC RBC Hgb Hct MCV MCH MCHC RDW Plt Count Seg Neutrophils % Lymphocytes % Monocytes % Eosinophils % Basophils % Absolute Neutrophils Absolute Lymphocytes Absolute Monocytes Absolute Eosinophils Absolute Basophils Sodium 141.9 Potassium 4.0 Chloride 102 Carbon Dioxide 30 Anion Gap 10 BUN 8 Creatinine 0.58 Est GFR ( Amer) > 60 Est GFR (Non-Af Amer) > 60 Glucose 94 Calcium 8.5 Blood Type Antibody Screen Impressions: Chest X-Ray 10/14/16 00:00 IMPRESSION: Deterioration in the chest. Increasing basilar opacities, effusions, and vascular congestion. Assessment & Plan - Diagnosis (1) Sickle cell crisis Is this a current diagnosis for this admission?: YesPlan: Continue IV fluids, analgesic, oxygen. Continue to treat pneumonia. Transfused 2 units PRBC per hematology recommendation on 10/17/2016. (2) Pneumonia Is this a current diagnosis for this admission?: YesPlan: Patient has bibasilar airspace disease versus scarring. Likely bacterial. Continue cefuroxime until 10/23/2016. Afebrile, normal white blood count. 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
[2016-10-18] MEDS: BACLOFEN 10 MG TABLET PO SCH (21:28)
[2016-10-18] MEDS: PSEUDOEPHEDRINE HCL 30 MG TABLET PO SCH (21:28)
[2016-10-19] MEDS: HYDROMORPHONE HCL INJ/PF 2 MG/ML AMPULE IV PRN ×9 (02:33→23:45)
[2016-10-19] MEDS: DIPHENHYDRAMINE HCL 50 MG/ML VIAL IV PRN ×5 (02:34→23:45)
[2016-10-19] MEDS: CEFUROXIME 500 MG TABLET PO SCH ×2 (05:35→17:16)
[2016-10-19] MEDS: OXYCODONE HCL IR 5 MG TABLET PO SCH ×3 (05:35→21:46)
[2016-10-19 06:08] LABS: HEMATOCRIT 28.5 % (37.9-51.0); HEMOGLOBIN 9.8 g/dL (13.5-17.0); HGB HCT DIFFERENCE 0.9; MEAN CORPUSCULAR HEMOGLOBIN 31.2 pg (27.0-33.4); MEAN CORPUSCULAR HGB CONC 34.2 g/dL (32.0-36.0); MEAN CORPUSCULAR VOLUME 91 fl (80-97); RED BLOOD COUNT 3.12 10^6/uL (4.35-5.55); RED CELL DISTRIBUTION WIDTH 19.2 % (11.5-14.0)
--- NOTE | 2016-10-19 08:05 | PDOC PROGRESS REPORT ---
Subjective Progress Note for:: 10/19/16 Subjective:: Patient doing a little bit better finally today, we adjusted pain medications. We recommended a bowel regimen but he does not like the MiraLAX. I recommended the enema but he wants to hold on that for now. Physical Exam Vital Signs: Temp Pulse Resp BP Pulse Ox 97.6 F 59 L 14 132/87 H 100 10/18/16 23:32 10/18/16 23:32 10/18/16 23:32 10/18/16 23:32 10/19/16 01:28 Intake & Output 10/18/16 10/19/16 10/20/16 06:59 06:59 06:59 Intake Total 3691 3179 Output Total 3200 3300 Balance 491 -121 Weight 72 kg 84.1 kg General appearance: PRESENT: no acute distress, well-developed, well-nourished Head exam: PRESENT: atraumatic, normocephalic Eye exam: PRESENT: conjunctiva pink, EOMI, PERRLA. ABSENT: scleral icterus Ear exam: PRESENT: normal external ear exam Mouth exam: PRESENT: moist, tongue midline Neck exam: ABSENT: carotid bruit, JVD, lymphadenopathy, thyromegaly Respiratory exam: PRESENT: clear to auscultation anastasiya. ABSENT: rales, rhonchi, wheezes Cardiovascular exam: PRESENT: RRR. ABSENT: diastolic murmur, rubs, systolic murmur Pulses: PRESENT: normal dorsalis pedis pul Vascular exam: PRESENT: normal capillary refill GI/Abdominal exam: PRESENT: normal bowel sounds, soft. ABSENT: distended, guarding, mass, organolmegaly, rebound, tenderness Rectal exam: PRESENT: deferred Extremities exam: PRESENT: full ROM. ABSENT: calf tenderness, clubbing, pedal edema Neurological exam: PRESENT: alert, awake, oriented to person, oriented to place , oriented to time, oriented to situation, CN II-XII grossly intact. ABSENT: motor sensory deficit Psychiatric exam: PRESENT: appropriate affect, normal mood. ABSENT: homicidal ideation, suicidal ideation Skin exam: PRESENT: dry, intact, warm. ABSENT: cyanosis, rash Results Laboratory Results: 10/19/16 05:35 10/18/16 05:15 10/19/16 05:35 WBC 5.0 RBC 3.12 L Hgb 9.8 L Hct 28.5 L MCV 91 MCH 31.2 MCHC 34.2 RDW 19.2 H Plt Count 431 Impressions: Chest X-Ray 10/14/16 00:00 IMPRESSION: Deterioration in the chest. Increasing basilar opacities, effusions, and vascular congestion. Assessment & Plan - Diagnosis (1) Sickle cell crisis Is this a current diagnosis for this admission?: YesPlan: Improving, continue with current pain regimen, I believe several more days and patient will be needed given the level of pain, I do not believe he will be able to deal with the pain with oral pain medication alone at present, we will monitor closely with continued hydration. - Time Time Spent with patient: 35 or more minutes Critical Time spent with patient: 35 or more minutes
[2016-10-19] MEDS: NORMAL SALINE 1000 ML 1,000 ML IV PRN ×2 (08:26→18:09)
[2016-10-19] MEDS: SENNOSIDES/DOCUSATE 8.6-50 MG 1 EACH TABLET PO SCH ×2 (09:16→17:16)
[2016-10-19] MEDS: DOCUSATE SODIUM 100 MG CAPSULE PO SCH ×2 (09:16→17:16)
[2016-10-19] MEDS: METHADONE HCL 10 MG TABLET PO SCH ×2 (09:16→21:46)
[2016-10-19] MEDS: FOLIC ACID 1 MG TABLET PO SCH (09:16)
[2016-10-19] MEDS: HYDROXYUREA 500 MG CAPSULE PO SCH (09:17)
[2016-10-19] MEDS: ENOXAPARIN SODIUM INJ 40 MG/0.4 ML DISP.SYRIN SUBCUT SCH (09:18)
[2016-10-19] MEDS ORDERED: HYDROMORPHONE HCL INJ/PF 2 MG/ML AMPULE IV PRN (13:43)
[2016-10-19 15:10] LABS: APPEARANCE,URINE CLEAR; BILIRUBIN,URINE NEGATIVE (NEGATIVE); GLUCOSE, URINE NEGATIVE (NEGATIVE); KETONES,URINE NEGATIVE (NEGATIVE); LEUKOCYTE ESTERASE,URINE NEGATIVE (NEGATIVE); NITRITE,URINE NEGATIVE (NEGATIVE); PROTEIN,URINE NEGATIVE (NEGATIVE); URINE SPECIFIC GRAVITY 1.008; UROBILINOGEN,URINE NEGATIVE mg/dL (<2.0)
--- NOTE | 2016-10-19 15:30 | PDOC PROGRESS REPORT ---
Subjective Progress Note for:: 10/19/16 Subjective:: Patient seems comfortable. He indicates to me that he cannot talk to me right now with hand gestures as he is in the middle of a prayer ritual. Physical Exam Vital Signs: Temp Pulse Resp BP Pulse Ox 98.7 F 71 17 139/89 H 97 10/19/16 11:34 10/19/16 11:34 10/19/16 11:34 10/19/16 11:34 10/19/16 11:34 Intake & Output 10/18/16 10/19/16 10/20/16 06:59 06:59 06:59 Intake Total 3691 3179 Output Total 3200 3300 Balance 491 -121 Weight 72 kg 84.1 kg GENERAL: No acute distress HEENT: Conjunctiva clear, nonicteric, moist mucous membranes, no JVD, midline trachea RESPIRATORY: Clear to auscultation bilaterally, no wheezes, no rhonchi CARDIAC: Regular rate and rhythm, no murmurs/gallops/rubs ABDOMEN: Soft, nondistended, nontender, positive bowel sounds, no rebound, no guarding EXTREMETIES: No edema, cyanosis, clubbing NEUROLOGIC: Alert, oriented to person/place/time, CN's grossly intact, no focal deficits SKIN: No rash, wounds PSYCH: Normal mood, normal affect Results Laboratory Results: 10/19/16 05:35 10/18/16 05:15 10/19/16 10/19/16 05:35 14:30 WBC 5.0 RBC 3.12 L Hgb 9.8 L Hct 28.5 L MCV 91 MCH 31.2 MCHC 34.2 RDW 19.2 H Plt Count 431 Urine Color YELLOW Urine Appearance CLEAR Urine pH 7.0 Ur Specific [place] 1.008 Urine Protein NEGATIVE Urine Glucose (UA) NEGATIVE Urine Ketones NEGATIVE Urine Blood NEGATIVE Urine Nitrite NEGATIVE Ur Leukocyte Esterase NEGATIVE Urine WBC (Auto) 1 Impressions: Chest X-Ray 10/14/16 00:00 IMPRESSION: Deterioration in the chest. Increasing basilar opacities, effusions, and vascular congestion. Assessment & Plan - Diagnosis (1) Sickle cell crisis Is this a current diagnosis for this admission?: YesPlan: Continue IV fluids, analgesic, oxygen. Continue to treat pneumonia. Transfused 2 units PRBC per hematology recommendation on 10/17/2016. According to hematology patient may take a couple more days to get better. (2) Pneumonia Is this a current diagnosis for this admission?: YesPlan: Patient has bibasilar airspace disease versus scarring. Likely bacterial. Continue cefuroxime until 10/23/2016. Afebrile, normal white blood count. (3) Anemia Qualifiers: Anemia type: acquired or hereditary hemolytic anemia Hemolytic anemia type: hereditary hemolytic anemia, unspecified Qualified Code(s): D58.9 - Hereditary hemolytic anemia, unspecified Is this a current diagnosis for this admission?: Yes (4) Avascular necrosis of hip Qualifiers: Laterality: right Qualified Code(s): M87.051 - Idiopathic aseptic necrosis of right femur Is this a current diagnosis for this admission?: Yes - Time Time Spent with patient: 15-24 minutes
[2016-10-19] MEDS: BACLOFEN 10 MG TABLET PO SCH (21:46)
[2016-10-19] MEDS: PSEUDOEPHEDRINE HCL 30 MG TABLET PO SCH (21:46)
[2016-10-20] MEDS: HYDROMORPHONE HCL INJ/PF 2 MG/ML AMPULE IV PRN ×9 (02:09→21:42)
[2016-10-20] MEDS: DIPHENHYDRAMINE HCL 50 MG/ML VIAL IV PRN ×3 (04:09→14:37)
[2016-10-20] MEDS: NORMAL SALINE 1000 ML 1,000 ML IV PRN (04:09)
[2016-10-20] MEDS: CEFUROXIME 500 MG TABLET PO SCH ×2 (06:35→17:17)
[2016-10-20] MEDS: OXYCODONE HCL IR 5 MG TABLET PO SCH ×3 (06:35→21:41)
[2016-10-20] MEDS: HYDROXYUREA 500 MG CAPSULE PO SCH (09:57)
[2016-10-20] MEDS: ENOXAPARIN SODIUM INJ 40 MG/0.4 ML DISP.SYRIN SUBCUT SCH (09:58)
[2016-10-20] MEDS: FOLIC ACID 1 MG TABLET PO SCH (09:58)
[2016-10-20] MEDS: DOCUSATE SODIUM 100 MG CAPSULE PO SCH ×2 (09:58→17:17)
[2016-10-20] MEDS: SENNOSIDES/DOCUSATE 8.6-50 MG 1 EACH TABLET PO SCH ×2 (09:58→17:17)
--- NOTE | 2016-10-20 11:17 | PDOC PROGRESS REPORT ---
Subjective Progress Note for:: 10/20/16 Subjective:: Pt doing somewhat better today Physical Exam Vital Signs: Temp Pulse Resp BP Pulse Ox 98.4 F 72 14 141/93 H 94 10/19/16 23:26 10/19/16 23:26 10/19/16 23:26 10/19/16 23:26 10/19/16 23:26 Intake & Output 10/19/16 10/20/16 10/21/16 06:59 06:59 06:59 Intake Total 3179 3960 Output Total 3300 1600 Balance -121 2360 Weight 84.1 kg 83 kg General appearance: PRESENT: no acute distress, well-developed, well-nourished Head exam: PRESENT: atraumatic, normocephalic Eye exam: PRESENT: conjunctiva pink, EOMI, PERRLA. ABSENT: scleral icterus Ear exam: PRESENT: normal external ear exam Mouth exam: PRESENT: moist, tongue midline Neck exam: ABSENT: carotid bruit, JVD, lymphadenopathy, thyromegaly Respiratory exam: PRESENT: clear to auscultation anastasiya. ABSENT: rales, rhonchi, wheezes Cardiovascular exam: PRESENT: RRR. ABSENT: diastolic murmur, rubs, systolic murmur Pulses: PRESENT: normal dorsalis pedis pul Vascular exam: PRESENT: normal capillary refill GI/Abdominal exam: PRESENT: normal bowel sounds, soft. ABSENT: distended, guarding, mass, organolmegaly, rebound, tenderness Rectal exam: PRESENT: deferred Extremities exam: PRESENT: full ROM. ABSENT: calf tenderness, clubbing, pedal edema Neurological exam: PRESENT: alert, awake, oriented to person, oriented to place , oriented to time, oriented to situation, CN II-XII grossly intact. ABSENT: motor sensory deficit Psychiatric exam: PRESENT: appropriate affect, normal mood. ABSENT: homicidal ideation, suicidal ideation Skin exam: PRESENT: dry, intact, warm. ABSENT: cyanosis, rash Results Laboratory Results: 10/19/16 05:35 10/18/16 05:15 10/19/16 14:30 Urine Color YELLOW Urine Appearance CLEAR Urine pH 7.0 Ur Specific [place] 1.008 Urine Protein NEGATIVE Urine Glucose (UA) NEGATIVE Urine Ketones NEGATIVE Urine Blood NEGATIVE Urine Nitrite NEGATIVE Ur Leukocyte Esterase NEGATIVE Urine WBC (Auto) 1 Impressions: Chest X-Ray 10/14/16 00:00 IMPRESSION: Deterioration in the chest. Increasing basilar opacities, effusions, and vascular congestion. Assessment & Plan - Diagnosis (1) Sickle cell crisis Is this a current diagnosis for this admission?: YesPlan: Cont current therapy, will cont current level pain regimen today. Suggest hospitalist team to discuss w/ pt about decreasing pain meds by tomorrow. Otherwise no changes today. Can do bloodwork every other day so we can minimize blood draws and blood loss. - Time Time Spent with patient: 25-34 minutes Critical Time spent with patient: 25-34 minutes
--- NOTE | 2016-10-20 14:41 | PDOC PROGRESS REPORT ---
Subjective Progress Note for:: 10/20/16 Subjective:: Patient seems comfortable. C/o nasal congestion. No fever, [place]. Physical Exam Vital Signs: Temp Pulse Resp BP Pulse Ox 98.4 F 68 17 136/85 H 98 10/20/16 11:40 10/20/16 11:40 10/20/16 11:40 10/20/16 11:40 10/20/16 11:40 Intake & Output 10/19/16 10/20/16 10/21/16 06:59 06:59 06:59 Intake Total 3179 3960 Output Total 3300 1600 Balance -121 2360 Weight 84.1 kg 83 kg GENERAL: No acute distress HEENT: Conjunctiva clear, nonicteric, moist mucous membranes, no JVD, midline trachea RESPIRATORY: Clear to auscultation bilaterally, no wheezes, no rhonchi CARDIAC: Regular rate and rhythm, no murmurs/gallops/rubs ABDOMEN: Soft, nondistended, nontender, positive bowel sounds, no rebound, no guarding EXTREMETIES: No edema, cyanosis, clubbing NEUROLOGIC: Alert, oriented to person/place/time, CN's grossly intact, no focal deficits SKIN: No rash, wounds PSYCH: Normal mood, normal affect Results Laboratory Results: 10/19/16 05:35 10/18/16 05:15 10/19/16 14:30 Urine Color YELLOW Urine Appearance CLEAR Urine pH 7.0 Ur Specific [place] 1.008 Urine Protein NEGATIVE Urine Glucose (UA) NEGATIVE Urine Ketones NEGATIVE Urine Blood NEGATIVE Urine Nitrite NEGATIVE Ur Leukocyte Esterase NEGATIVE Urine WBC (Auto) 1 Impressions: Chest X-Ray 10/14/16 00:00 IMPRESSION: Deterioration in the chest. Increasing basilar opacities, effusions, and vascular congestion. Assessment & Plan - Diagnosis (1) Sickle cell crisis Is this a current diagnosis for this admission?: YesPlan: Continue IV fluids, analgesic, oxygen. Continue to treat pneumonia. Transfused 2 units PRBC per hematology recommendation on 10/17/2016. According to hematology patient may take a couple more days to get better. (2) Pneumonia Is this a current diagnosis for this admission?: YesPlan: Patient has bibasilar airspace disease versus scarring. Likely bacterial. Continue cefuroxime until 10/23/2016. Afebrile, normal white blood count. (3) Anemia Qualifiers: Anemia type: acquired or hereditary hemolytic anemia Hemolytic anemia type: hereditary hemolytic anemia, unspecified Qualified Code(s): D58.9 - Hereditary hemolytic anemia, unspecified Is this a current diagnosis for this admission?: YesPlan: (4) Avascular necrosis of hip Qualifiers: Laterality: right Qualified Code(s): M87.051 - Idiopathic aseptic necrosis of right femur Is this a current diagnosis for this admission?: Yes
[2016-10-20] MEDS ORDERED: FLUTICASONE NASAL SPRAY 50 MCG/SPRY 120 SPRAY/16 GM NASL ONE (15:30)
[2016-10-20] MEDS: BACLOFEN 10 MG TABLET PO SCH (21:42)
[2016-10-20] MEDS: PSEUDOEPHEDRINE HCL 30 MG TABLET PO SCH (21:42)
[2016-10-20] MEDS ORDERED: FLUTICASONE NASAL SPRAY 50 MCG/SPRY 120 SPRAY/16 GM ONE (22:24)
[2016-10-21] MEDS: HYDROMORPHONE HCL INJ/PF 2 MG/ML AMPULE IV PRN ×10 (00:01→22:44)
[2016-10-21] MEDS: DIPHENHYDRAMINE HCL 50 MG/ML VIAL IV PRN ×5 (00:01→20:38)
[2016-10-21] MEDS: FLUTICASONE NASAL SPRAY 50 MCG/SPRY 120 SPRAY/16 GM NASL SCH ×3 (00:03→22:43)
[2016-10-21] MEDS: CEFUROXIME 500 MG TABLET PO SCH ×2 (05:02→17:45)
[2016-10-21] MEDS: OXYCODONE HCL IR 5 MG TABLET PO SCH ×3 (05:34→22:43)
[2016-10-21 06:55] LABS: HEMATOCRIT 29.8 % (37.9-51.0); HEMOGLOBIN 9.9 g/dL (13.5-17.0); HGB HCT DIFFERENCE -0.1; MEAN CORPUSCULAR HEMOGLOBIN 30.6 pg (27.0-33.4); MEAN CORPUSCULAR HGB CONC 33.1 g/dL (32.0-36.0); MEAN CORPUSCULAR VOLUME 92 fl (80-97); RED BLOOD COUNT 3.23 10^6/uL (4.35-5.55); RED CELL DISTRIBUTION WIDTH 19.4 % (11.5-14.0); WHITE BLOOD COUNT 6.1 10^3/uL (4.0-10.5)
[2016-10-21 07:27] LABS: BASOPHILS % (MANUAL) 0 % (0-2); EOSINOPHILS % (MANUAL) 5 % (0-6); LYMPHOCYTES % (MANUAL) 31 % (13-45); NUCLEATED RED BLOOD CELLS 1 /100 WBC (0); TOTAL CELLS COUNTED 100
[2016-10-21 07:28] LABS: ANISOCYTOSIS 1+
[2016-10-21 07:29] LABS: HYPOCHROMASIA 1+; OVALOCYTES SLIGHT; POIKILOCYTOSIS 3+; POLYCHROMASIA SLIGHT; TARGET CELLS 1+; TEAR DROP CELLS SLIGHT
[2016-10-21] MEDS: HYDROXYUREA 500 MG CAPSULE PO SCH (10:14)
[2016-10-21] MEDS: ENOXAPARIN SODIUM INJ 40 MG/0.4 ML DISP.SYRIN SUBCUT SCH (10:14)
[2016-10-21] MEDS: DOCUSATE SODIUM 100 MG CAPSULE PO SCH ×2 (10:14→17:45)
[2016-10-21] MEDS: SENNOSIDES/DOCUSATE 8.6-50 MG 1 EACH TABLET PO SCH ×2 (10:14→17:45)
[2016-10-21] MEDS: FOLIC ACID 1 MG TABLET PO SCH (10:15)
[2016-10-21] MEDS: NORMAL SALINE 1000 ML 1,000 ML IV PRN ×2 (12:19→22:44)
--- NOTE | 2016-10-21 17:10 | PDOC PROGRESS REPORT ---
Subjective Progress Note for:: 10/21/16 Subjective:: Patient appears very comfortable when I talk to him. He states that his pain is getting better but still he thinks he requires IV pain medication. He would like to see how he feels tomorrow. He does not feel he is ready to go home today. Physical Exam Vital Signs: Temp Pulse Resp BP Pulse Ox 98.6 F 71 16 130/82 H 100 10/21/16 07:21 10/21/16 07:21 10/21/16 07:21 10/21/16 07:21 10/21/16 07:21 Intake & Output 10/20/16 10/21/16 10/22/16 06:59 06:59 06:59 Intake Total 3960 3360 Output Total 1600 5525 Balance 2360 -2165 Weight 83 kg 75.9 kg GENERAL: No acute distress HEENT: Conjunctiva clear, nonicteric, moist mucous membranes, no JVD, midline trachea RESPIRATORY: Clear to auscultation bilaterally, no wheezes, no rhonchi CARDIAC: Regular rate and rhythm, no murmurs/gallops/rubs ABDOMEN: Soft, nondistended, nontender, positive bowel sounds, no rebound, no guarding EXTREMETIES: No edema, cyanosis, clubbing NEUROLOGIC: Alert, oriented to person/place/time, CN's grossly intact, no focal deficits SKIN: No rash, wounds PSYCH: Normal mood, normal affect Results Laboratory Results: 10/21/16 06:30 10/18/16 05:15 10/21/16 06:30 WBC 6.1 RBC 3.23 L Hgb 9.9 L Hct 29.8 L MCV 92 MCH 30.6 MCHC 33.1 RDW 19.4 H Plt Count 409 Seg Neutrophils % Not Reportable Lymphocytes % Not Reportable Monocytes % Not Reportable Eosinophils % Not Reportable Basophils % Not Reportable Absolute Neutrophils Not Reportable Absolute Lymphocytes Not Reportable Absolute Monocytes Not Reportable Absolute Eosinophils Not Reportable Absolute Basophils Not Reportable Impressions: Chest X-Ray 10/14/16 00:00 IMPRESSION: Deterioration in the chest. Increasing basilar opacities, effusions, and vascular congestion. Assessment & Plan - Diagnosis (1) Sickle cell crisis Is this a current diagnosis for this admission?: YesPlan: Continue IV fluids, analgesic, oxygen. Continue to treat pneumonia. Transfused 2 units PRBC per hematology recommendation on 10/17/2016. According to hematology patient may take a couple more days to get better. I will defer further management and pain control to hematology. (2) Pneumonia Is this a current diagnosis for this admission?: YesPlan: Patient has bibasilar airspace disease versus scarring. Likely bacterial. Continue cefuroxime until 10/23/2016. Afebrile, normal white blood count. (3) Anemia Qualifiers: Anemia type: acquired or hereditary hemolytic anemia Hemolytic anemia type: hereditary hemolytic anemia, unspecified Qualified Code(s): D58.9 - Hereditary hemolytic anemia, unspecified Is this a current diagnosis for this admission?: Yes (4) Avascular necrosis of hip Qualifiers: Laterality: right Qualified Code(s): M87.051 - Idiopathic aseptic necrosis of right femur Is this a current diagnosis for this admission?: Yes - Time Time Spent with patient: 15-24 minutes
[2016-10-21] MEDS: PSEUDOEPHEDRINE HCL 30 MG TABLET PO SCH (22:44)
[2016-10-21] MEDS: BACLOFEN 10 MG TABLET PO SCH (22:44)
[2016-10-22] MEDS: DIPHENHYDRAMINE HCL 50 MG/ML VIAL IV PRN ×4 (00:41→13:48)
[2016-10-22] MEDS: HYDROMORPHONE HCL INJ/PF 2 MG/ML AMPULE IV PRN ×8 (00:41→16:33)
[2016-10-22] MEDS: OXYCODONE HCL IR 5 MG TABLET PO SCH (05:59)
[2016-10-22] MEDS: CEFUROXIME 500 MG TABLET PO SCH ×2 (05:59→17:04)
[2016-10-22 06:13] LABS: HEMATOCRIT 27.5 % (37.9-51.0); HEMOGLOBIN 9.3 g/dL (13.5-17.0); HGB HCT DIFFERENCE 0.4; MEAN CORPUSCULAR HEMOGLOBIN 30.8 pg (27.0-33.4); MEAN CORPUSCULAR HGB CONC 33.8 g/dL (32.0-36.0); MEAN CORPUSCULAR VOLUME 91 fl (80-97); RED BLOOD COUNT 3.01 10^6/uL (4.35-5.55); RED CELL DISTRIBUTION WIDTH 19.1 % (11.5-14.0); WHITE BLOOD COUNT 5.5 10^3/uL (4.0-10.5)
--- NOTE | 2016-10-22 07:46 | PDOC PROGRESS REPORT ---
Subjective Progress Note for:: 10/22/16 Subjective:: Pt feeling better, he feels he maybe ready for d/c later today, will have hospitalist team speak w/ pt this pm and see how he is doing. Physical Exam Vital Signs: Temp Pulse Resp BP Pulse Ox 98.4 F 73 17 113/65 99 10/21/16 20:31 10/21/16 23:07 10/21/16 23:07 10/21/16 23:07 10/21/16 23:07 Intake & Output 10/21/16 10/22/16 10/23/16 06:59 06:59 06:59 Intake Total 3360 3080 Output Total 5525 2500 Balance -2165 580 Weight 75.9 kg 76 kg General appearance: PRESENT: no acute distress, well-developed, well-nourished Head exam: PRESENT: atraumatic, normocephalic Eye exam: PRESENT: conjunctiva pink, EOMI, PERRLA. ABSENT: scleral icterus Ear exam: PRESENT: normal external ear exam Mouth exam: PRESENT: moist, tongue midline Neck exam: ABSENT: carotid bruit, JVD, lymphadenopathy, thyromegaly Respiratory exam: PRESENT: clear to auscultation anastasiya. ABSENT: rales, rhonchi, wheezes Cardiovascular exam: PRESENT: RRR. ABSENT: diastolic murmur, rubs, systolic murmur Pulses: PRESENT: normal dorsalis pedis pul Vascular exam: PRESENT: normal capillary refill GI/Abdominal exam: PRESENT: normal bowel sounds, soft. ABSENT: distended, guarding, mass, organolmegaly, rebound, tenderness Rectal exam: PRESENT: deferred Extremities exam: PRESENT: full ROM. ABSENT: calf tenderness, clubbing, pedal edema Neurological exam: PRESENT: alert, awake, oriented to person, oriented to place , oriented to time, oriented to situation, CN II-XII grossly intact. ABSENT: motor sensory deficit Psychiatric exam: PRESENT: appropriate affect, normal mood. ABSENT: homicidal ideation, suicidal ideation Skin exam: PRESENT: dry, intact, warm. ABSENT: cyanosis, rash Results Laboratory Results: 10/22/16 05:45 10/18/16 05:15 10/21/16 10/22/16 06:30 05:45 WBC 6.1 5.5 RBC 3.23 L 3.01 L Hgb 9.9 L 9.3 L Hct 29.8 L 27.5 L MCV 92 91 MCH 30.6 30.8 MCHC 33.1 33.8 RDW 19.4 H 19.1 H Plt Count 409 375 Impressions: Chest X-Ray 10/14/16 00:00 IMPRESSION: Deterioration in the chest. Increasing basilar opacities, effusions, and vascular congestion. Assessment & Plan - Diagnosis (1) Sickle cell crisis Is this a current diagnosis for this admission?: YesPlan: Improved considerably, possible d/c later today based on pain level, he will try and walk the [place] this am. 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 Hobson, next week. We will comanage him as outpt. Today spent 45 min in discussion w/ pt about outpt meds. If needed hospitalist can write for small amt oxycodone prior to d/c so pt can make it until he sees his [facility] auto body painter. - Time Time Spent with patient: 35 or more minutes Critical Time spent with patient: 35 or more minutes
[2016-10-22] MEDS: FOLIC ACID 1 MG TABLET PO SCH (09:35)
[2016-10-22] MEDS: SENNOSIDES/DOCUSATE 8.6-50 MG 1 EACH TABLET PO SCH ×2 (09:35→17:04)
[2016-10-22] MEDS: HYDROXYUREA 500 MG CAPSULE PO SCH (09:35)
[2016-10-22] MEDS: DOCUSATE SODIUM 100 MG CAPSULE PO SCH ×2 (09:35→17:04)
[2016-10-22] MEDS: FLUTICASONE NASAL SPRAY 50 MCG/SPRY 120 SPRAY/16 GM NASL SCH (09:36)
[2016-10-22] MEDS: ENOXAPARIN SODIUM INJ 40 MG/0.4 ML DISP.SYRIN SUBCUT SCH (09:37)
--- NOTE | 2016-10-22 11:36 | PDOC DISCHARGE SUMMARY ---
General - Admit/Disc Date/PCP Admission Date/Primary Care Provider: 10/11/16 11:16 Discharge Date: 10/22/16 - Discharge Diagnosis (1) Sickle cell crisis Is this a current diagnosis for this admission?: Yes (2) Pneumonia Is this a current diagnosis for this admission?: Yes (3) Anemia Is this a current diagnosis for this admission?: Yes (4) Avascular necrosis of hip Is this a current diagnosis for this admission?: Yes - Additional Information Resuscitation Status: Full Code Discharge Diet: Regular Discharge Activity: Activity As Tolerated Home Medications: Baclofen [Baclofen 10 mg Tablet] 10 mg PO QHS 10/11/16 Folic Acid 1 mg PO DAILY 10/11/16 Hydroxyurea [Hydrea 500 mg Capsule] 1,500 mg PO MOWEFR@1000 10/11/16 Hydroxyurea [Hydrea 500 mg Capsule] 2,000 mg PO SUTUTHSA@1000 10/11/16 Ibuprofen [Motrin 600 mg Tablet] 600 mg PO QIDP PRN 10/11/16 Methadone HCl [Dolophine HCl] 5 mg PO BID 10/11/16 Cefaclor 500 mg PO BID #4 capsule 10/22/16 Docusate Sodium [Colace 100 mg Capsule] 100 mg PO BID #60 capsule 10/22/16 Oxycodone HCl [Oxycodone HCl 10 MG Tablet] 10 mg PO Q8HP PRN #30 tablet History of Present Illness Patient complains of: Hip and chest pain. History of Present Illness: MARISA GARBER is a 35 year old male with sickle cell disease who presents with complaints of chest, hip, back pain. He reports that he woke up this morning at 3 AM with complaints of pain in his chest and hips as well as his lower back. He denies any cough. He denies any fevers or chills. He denies any change with ambulation. Denies any orthopnea or PND. Denies any priapism. Hospital Course Hospital Course: Patient was admitted for sickle cell crisis associated with bibasilar pneumonia. Hematology was consulted and manage pain control during hospitalization. Patient was treated with IV fluids, antibiotics, oxygen until crisis resolved. He is discharged home on oral anti-biotic and oral analgesic. 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 Physical Exam Vital Signs: Temp Pulse Resp BP Pulse Ox 98.4 F 74 20 137/86 H 100 10/22/16 07:20 10/22/16 07:20 10/22/16 07:20 10/22/16 07:20 10/22/16 07:20 Intake & Output 10/21/16 10/22/16 10/23/16 06:59 06:59 06:59 Intake Total 3360 3080 Output Total 5505 2500 Balance -2165 580 Weight 75.9 kg 76 kg GENERAL: No acute distress HEENT: Conjunctiva clear, nonicteric, moist mucous membranes, no JVD, midline trachea RESPIRATORY: Clear to auscultation bilaterally, no wheezes, no rhonchi CARDIAC: Regular rate and rhythm, no murmurs/gallops/rubs ABDOMEN: Soft, nondistended, nontender, positive bowel sounds, no rebound, no guarding EXTREMETIES: No edema, cyanosis, clubbing NEUROLOGIC: Alert, oriented to person/place/time, CN's grossly intact, no focal deficits SKIN: No rash, wounds PSYCH: Normal mood, normal affect Results Laboratory Results: 10/22/16 05:45 10/18/16 05:15 10/22/16 05:45 WBC 5.5 RBC 3.01 L Hgb 9.3 L Hct 27.5 L MCV 91 MCH 30.8 MCHC 33.8 RDW 19.1 H Plt Count 375 Impressions: Chest X-Ray 10/14/16 00:00 IMPRESSION: Deterioration in the chest. Increasing basilar opacities, effusions, and vascular congestion. Qualifiers PATEINT BEING DISCHARGED WITH ANY OF THE FOLLOWING DIAGNOSIS?: No Plan Time Spent: Less than 30 Minutes
[2016-10-22 17:34] VITALS: BP 121/83
== END 2016-10-22 19:00 | disposition home or self-care (01) | DRG 811 ==
LOC: ER 06:39 → EH 11:02 → UNDOADMIN 11:02 → EH 11:16 → 4S 12:26 → EH 12:26 → 4S 10-17 20:44
PROVIDERS: ADMIT Internal Medicine; ATTEND Internal Medicine
PROC: 30233N1 Transfusion of Nonautologous Red Blood Cells into Peripheral Vein, Percutaneous Approach (ICD-10-PCS; principal; 2016-10-17)
DX: D57.819 Other sickle-cell disorders with crisis, unspecified (principal); J18.9 Pneumonia, unspecified organism; M87.051 Idiopathic aseptic necrosis of right femur; D64.9 Anemia, unspecified; G40.909 Epilepsy, unspecified, not intractable, without status epilepticus; Z79.899 Other long term (current) drug therapy; Z87.891 Personal history of nicotine dependence; Z88.8 Allergy status to other drugs, medicaments and biological substances
CPT/HCPCS: 36415; 36430; 36591; 71020; 80048; 80053; 81001; 85025; 85027; 85045; 86850; 86900; 86901; 86920; 87040; 94640; 96361; 96374; 96375; 99285; J1170; J1200; J1650; J3490; J7030; P9016

== ENCOUNTER 2016-11-22 21:42 | Emergency (ER) | payer MEDICARE, MEDICAID ==
[2016-11-22] MEDS ORDERED: NORMAL SALINE 1000 ML 1,000 ML IV ONE ×2 (22:58)
--- NOTE | 2016-11-22 22:58 | ER Document Report ---
ED Medical Screen (RME) - General Chief Complaint: Sickle Cell Crisis Stated Complaint: ALL OVER BODY PAIN Time Seen by Provider: 11/22/16 22:56 Notes: 35-year-old male, chief complaint of sickle cell crisis, reports pain in almost his entire body at this time. He reports a runny nose but denies any shortness of breath, fever, vomiting, or other symptoms. Takes oxycodone twice a day. Follows with [facility] hematology. He states he thought he was getting priapism earlier in the morning but this resolved and he currently does not have any issues with this. TRAVEL OUTSIDE OF THE [place] IN LAST 30 DAYS: No - Related Data Allergies/Adverse Reactions: famotidine [From Pepcid] Allergy (Severe, Verified 11/22/16 22:51) Anaphylaxis ketorolac tromethamine [From Toradol] Allergy (Severe, Verified 11/22/16 22:51) levofloxacin [From Levaquin] Allergy (Severe, Verified 11/22/16 22:51) meperidine HCl [From Demerol] Allergy (Severe, Verified 11/22/16 22:51) morphine [Morphine] Allergy (Severe, Verified 11/22/16 22:51) tramadol HCl [From Ultram] Allergy (Severe, Verified 11/22/16 22:51) amoxicillin [Amoxicillin] Allergy (Verified 11/22/16 22:51) fentanyl [Fentanyl] Allergy (Verified 11/22/16 22:51) latex [Latex] Allergy (Verified 11/22/16 22:51) ondansetron HCl [From Zofran] Allergy (Verified 11/22/16 22:51) Past Medical History - Past Medical History Cardiac Medical History: Denies: Hx Atrial Fibrillation, Hx Congestive Heart Failure, Hx Coronary Artery Disease Pulmonary Medical History: Denies: Hx Bronchitis, Hx Tuberculosis Neurological Medical History: Reports: Hx Seizures Endocrine Medical History: Denies: Hx Diabetes Mellitus Type 1 Renal/ Medical History: Denies: Hx Peritoneal Dialysis Musculoskeltal Medical History: Reports Hx Musculoskeletal Deformity - right hip avascular necrosis Psychiatric Medical History: Denies: Hx Depression Past Surgical History: Reports: Hx Appendectomy, Hx Vascular Surgery - port placement - Immunizations Immunizations up to date: Yes Hx Diphtheria, Pertussis, Tetanus Vaccination: Yes Physical Exam - Vital signs Vitals: Temp Pulse Resp BP Pulse Ox 98.2 F 55 L 15 131/87 H 96 11/22/16 22:50 11/22/16 22:50 11/22/16 22:50 11/22/16 22:50 11/22/16 22:50 - General General appearance: Appears well In distress: None - Respiratory Respiratory status: No respiratory distress Breath sounds: Normal. No: Decreased air movement - Cardiovascular Rhythm: Regular, Bradycardia - Borderline bradycardia Heart sounds: Normal auscultation, S1 appreciated, S2 appreciated Course - Vital Signs Vital signs: Temp Pulse Resp BP Pulse Ox 98.2 F 55 L 15 131/87 H 96 11/22/16 22:50 11/22/16 22:50 11/22/16 22:50 11/22/16 22:50 11/22/16 22:50
[2016-11-22 23:33] LABS: HEMATOCRIT 31.6 % (37.9-51.0); HGB HCT DIFFERENCE 1.4; MEAN CORPUSCULAR HGB CONC 34.8 g/dL (32.0-36.0); MEAN CORPUSCULAR VOLUME 95 fl (80-97); RED BLOOD COUNT 3.34 10^6/uL (4.35-5.55); RED CELL DISTRIBUTION WIDTH 22.9 % (11.5-14.0); WHITE BLOOD COUNT 8.8 10^3/uL (4.0-10.5)
[2016-11-22 23:52] LABS: ALANINE AMINOTRANSFERASE 27 U/L (21-72); ALBUMIN 4.6 g/dL (3.5-5.0); ALKALINE PHOSPHATASE 91 U/L (38-126); ANION GAP 14 (5-19); ASPARTATE AMINO TRANSFERASE 38 U/L (17-59); BILIRUBIN,DIRECT 0.2 mg/dL (0.0-0.4); BILIRUBIN,TOTAL 1.8 mg/dL (0.2-1.3); BLOOD UREA NITROGEN 9 mg/dL (7-20); CALCIUM 9.3 mg/dL (8.4-10.2); CARBON DIOXIDE 22 mmol/L (22-30); CHLORIDE 105 mmol/L (98-107); CREATININE RESULT 0.68 mg/dL (0.52-1.25); GLUCOSE 95 mg/dL (75-110); POTASSIUM 4.2 mmol/L (3.6-5.0); TOTAL PROTEIN 8.9 g/dL (6.3-8.2)
[2016-11-22 23:54] LABS: BASOPHILS % (MANUAL) 0 % (0-2); EOSINOPHILS % (MANUAL) 0 % (0-6); LYMPHOCYTES % (MANUAL) 30 % (13-45); TOTAL CELLS COUNTED 100
[2016-11-22 23:56] LABS: ANISOCYTOSIS 3+; POIKILOCYTOSIS 1+; POLYCHROMASIA 1+; TARGET CELLS SLIGHT
[2016-11-23] MEDS ORDERED: DIPHENHYDRAMINE HCL 50 MG/ML VIAL IV ONE ×2 (02:45→05:00)
[2016-11-23] MEDS ORDERED: HYDROMORPHONE HCL INJ/PF 2 MG/ML AMPULE IV ONE ×3 (02:45→05:00)
--- NOTE | 2016-11-23 02:47 | ER Document Report ---
ED General - General Chief Complaint: Sickle Cell Crisis Stated Complaint: ALL OVER BODY PAIN Time Seen by Provider: 11/22/16 22:56 Notes: Patient is a 35-year-old male with history of sickle cell disease who presents with complaint of pain all over. He says it feels like his typical sickle cell pain. He says he was developing a pre-prism earlier but this has since subsided. No fevers. No vomiting. No diarrhea. No history of acute chest syndrome. On abdominal surgeries had his appendectomy. He still has a spleen. No other complaints at this time. [facility]. TRAVEL OUTSIDE OF THE [place] IN LAST 30 DAYS: No - Related Data Allergies/Adverse Reactions: famotidine [From Pepcid] Allergy (Severe, Verified 11/22/16 22:51) Anaphylaxis ketorolac tromethamine [From Toradol] Allergy (Severe, Verified 11/22/16 22:51) levofloxacin [From Levaquin] Allergy (Severe, Verified 11/22/16 22:51) meperidine HCl [From Demerol] Allergy (Severe, Verified 11/22/16 22:51) morphine [Morphine] Allergy (Severe, Verified 11/22/16 22:51) tramadol HCl [From Ultram] Allergy (Severe, Verified 11/22/16 22:51) amoxicillin [Amoxicillin] Allergy (Verified 11/22/16 22:51) fentanyl [Fentanyl] Allergy (Verified 11/22/16 22:51) latex [Latex] Allergy (Verified 11/22/16 22:51) ondansetron HCl [From Zofran] Allergy (Verified 11/22/16 22:51) Past Medical History - Social History Smoking Status: Unknown if Ever Smoked Frequency of alcohol use: None Drug Abuse: None Family History: Other - Past Medical History Cardiac Medical History: Denies: Hx Atrial Fibrillation, Hx Congestive Heart Failure, Hx Coronary Artery Disease Pulmonary Medical History: Denies: Hx Bronchitis, Hx Tuberculosis Neurological Medical History: Reports: Hx Seizures Endocrine Medical History: Denies: Hx Diabetes Mellitus Type 1 Renal/ Medical History: Denies: Hx Peritoneal Dialysis Musculoskeltal Medical History: Reports Hx Musculoskeletal Deformity - right hip avascular necrosis Psychiatric Medical History: Denies: Hx Depression Past Surgical History: Reports: Hx Appendectomy, Hx Vascular Surgery - port placement - Immunizations Immunizations up to date: Yes Hx Diphtheria, Pertussis, Tetanus Vaccination: Yes Hx Pneumococcal Vaccination: 02/20/11 Review of Systems - Review of Systems Notes: My Normal Review Basic REVIEW OF SYSTEMS: CONSTITUTIONAL : Denies fever, chills, or sweats. Denies recent illness. EENT: Denies eye, ear, throat, or mouth pain or symptoms. Denies nasal or sinus congestion. CARDIOVASCULAR: Denies chest pain. RESPIRATORY: Denies cough, cold, or chest congestion. Denies shortness of breath, difficulty breathing, or wheezing. GASTROINTESTINAL: generalized abdominal pain. Denies nausea, vomiting, or diarrhea. Denies constipation. Last BM: GENITOURINARY: Denies difficulty urinating, painful urination, burning, frequency, or blood in urine. MUSCULOSKELETAL: diffuse body pain SKIN: Denies rash or skin lesions. HEMATOLOGIC : History of sickle cell disease NEUROLOGICAL: Denies altered mental status or loss of consciousness. Denies headache. Denies weakness or paralysis or loss of use of either side. Denies problems with gait or speech. Denies sensory or motor loss. ALL OTHER SYSTEMS REVIEWED AND NEGATIVE. Physical Exam - Vital signs Vitals: Temp Pulse Resp BP Pulse Ox 98.2 F 55 L 15 131/87 H 96 11/22/16 22:50 11/22/16 22:50 11/22/16 22:50 11/22/16 22:50 11/22/16 22:50 - Notes Notes: General Appearance: Well nourished, alert, cooperative, no acute distress, moderate obvious discomfort. Vitals: reviewed, See vital signs table. Head: no swelling or tenderness to the head Eyes: PERRL, EOMI, Conjuctiva clear Mouth: No decreasd moisture Neck: Supple, no neck tenderness, Lungs: No wheezing, No rales, No rhonci, No accessory muscle use, good air exchange bilaterally. Heart: Normal rate, Regular rythm, No murmur, no rub Abdomen: Normal BS, soft, No rigidity, mild diffuse abdominal tenderness, No guarding, no rebound, no abdominal masses, no organomegaly Extremities: strength 5/5 in all extremities, good pulses in all extremities, mild diffuse muscular tenderness, no edema. Skin: warm, dry, appropriate color, no rash Neuro: speech clear, oriented x 3, normal affect, responds appropriately to questions. Course - Vital Signs Vital signs: Temp Pulse Resp BP Pulse Ox 98.2 F 55 L 12 133/88 H 100 11/22/16 22:50 11/22/16 22:50 11/23/16 03:19 11/23/16 03:19 11/23/16 03:19 - Laboratory Result Diagrams: 11/22/16 23:20 11/22/16 23:20 Laboratory results interpreted by me: 11/22/16 11/22/16 23:20 23:20 RBC 3.34 L Hgb 11.0 L Hct 31.6 L RDW 22.9 H Retic Count (auto) 6.82 H Absolute Retic 0.228 H Total Bilirubin 1.8 H Total Protein 8.9 H - Transfer of Care Notes: 11/23/16 05:51 Patient feels much improved. He looks well. Vital signs are normal. His laboratory evaluation is unremarkable except for some elevation of reticular cell count which we expect. His hemoglobin is 11. He has no leukocytosis. He has no fevers. I feel he is safe to be discharged home. I encouraged him return to ER if he has intractable pain, vomiting, difficulty breathing, or feels unwell. Patient agrees with plan and will be discharged home. Dictation of this chart was performed using voice recognition software; therefore, there may be some unintended grammatical errors. Discharge - Discharge Clinical Impression: Sickle cell crisis Condition: Good Disposition: HOME, SELF-CARE Additional Instructions: Sickle Cell Crisis You have "sickle cell crisis." Sickle cell disease is caused by abnormal hemoglobin. This hemoglobin can deform red blood cells into a sickle shape. These abnormal blood cells can block blood vessels. This causes the pain of sickle cell crisis. Sickle cell crisis can occur any time. But attacks are more likely with acute infection, dehydration, or altitude change. A crisis usually causes pain in the legs, back, abdomen, and chest. Sometimes the pain may ease and return later. The usual treatment is oxygen, pain medication, IV fluids, and treatment of infection. Attacks may take a couple of days to resolve. Return if the pain becomes more severe, or if there are new symptoms. Please return to the ER immediately if you have worsening pain, fevers, difficulty breathing, vomiting, abdominal pain, or feel unwell. Forms: Return to Work
[2016-11-23 07:04] VITALS: BP 147/88
== END 2016-11-23 07:21 | disposition home or self-care (01) ==
LOC: ER 21:42
DX: D57.00 Hb-SS disease with crisis, unspecified (principal); M79.1 Myalgia
CPT/HCPCS: 36591; 96376; 99284; 96361; 96374; 96375; 36415; 85025; 85045; 80053; J1200; J1170; J7030

== ENCOUNTER 2016-11-24 01:06 | Emergency (ER) | payer MEDICARE, MEDICAID ==
[2016-11-24] MEDS ORDERED: HYDROMORPHONE HCL INJ/PF 2 MG/ML AMPULE IV PRN (01:24)
[2016-11-24] MEDS ORDERED: DIPHENHYDRAMINE HCL 50 MG CAPSULE PO ONE (01:33)
--- NOTE | 2016-11-24 01:34 | ER Document Report ---
ED General - General Chief Complaint: Sickle Cell Crisis Stated Complaint: SICKLE CELL CRISIS Time Seen by Provider: 11/24/16 01:24 Notes: Patient is a 35-year-old male with past medical history of sickle cell anemia recently seen in this emergency department several days ago for sickle cell crisis who returns complaining of ongoing diffuse abdominal pain. He has been trying oxycodone at home without improvement of his pain. He does describe it as a diffuse cramping, aching pain. Nothing worsens his symptoms. He states this is a typical sickle cell crisis for him. Does note some mild associated shortness of breath she has had in the past with crises but he also does have a history of acute chest syndrome. 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 Denies any associated fever, vomiting or altered mental status. TRAVEL OUTSIDE OF THE [place] IN LAST 30 DAYS: No - Related Data Allergies/Adverse Reactions: famotidine [From Pepcid] Allergy (Severe, Verified 11/24/16 01:12) Anaphylaxis ketorolac tromethamine [From Toradol] Allergy (Severe, Verified 11/24/16 01:12) levofloxacin [From Levaquin] Allergy (Severe, Verified 11/24/16 01:12) meperidine HCl [From Demerol] Allergy (Severe, Verified 11/24/16 01:12) morphine [Morphine] Allergy (Severe, Verified 11/24/16 01:12) tramadol HCl [From Ultram] Allergy (Severe, Verified 11/24/16 01:12) amoxicillin [Amoxicillin] Allergy (Verified 11/24/16 01:12) fentanyl [Fentanyl] Allergy (Verified 11/24/16 01:12) latex [Latex] Allergy (Verified 11/24/16 01:12) ondansetron HCl [From Zofran] Allergy (Verified 11/24/16 01:12) Past Medical History - General Information source: Patient - Social History Smoking Status: Never Smoker Frequency of alcohol use: None Drug Abuse: None Lives with: Spouse/Significant other Family History: Reviewed & Not Pertinent, Other Patient has suicidal ideation: No Patient has homicidal ideation: No - Past Medical History Cardiac Medical History: Denies: Hx Atrial Fibrillation, Hx Congestive Heart Failure, Hx Coronary Artery Disease Pulmonary Medical History: Denies: Hx Bronchitis, Hx Tuberculosis Neurological Medical History: Reports: Hx Seizures Endocrine Medical History: Denies: Hx Diabetes Mellitus Type 1 Renal/ Medical History: Denies: Hx Peritoneal Dialysis Musculoskeltal Medical History: Reports Hx Musculoskeletal Deformity - right hip avascular necrosis Psychiatric Medical History: Denies: Hx Depression Past Surgical History: Reports: Hx Appendectomy, Hx Vascular Surgery - port placement - Immunizations Immunizations up to date: Yes Hx Diphtheria, Pertussis, Tetanus Vaccination: Yes Hx Pneumococcal Vaccination: 02/20/11 Review of Systems - Review of Systems Notes: Constitutional: Negative for fever. HENT: Negative for sore throat. Eyes: Negative for visual changes. Cardiovascular: Negative for chest pain. Respiratory: Positive for shortness of breath. Gastrointestinal: Negative for abdominal pain, vomiting or diarrhea. Genitourinary: Negative for dysuria. Musculoskeletal: Negative for back pain. Skin: Negative for rash. Neurological: Negative for headaches, weakness or numbness. 10 point ROS negative except as marked above and in HPI. Physical Exam - Vital signs Vitals: Temp Pulse Resp BP Pulse Ox 98.7 F 69 18 144/76 H 94 11/24/16 01:09 11/24/16 01:09 11/24/16 01:09 11/24/16 01:09 11/24/16 01:09 Interpretation: Hypertensive Notes: PHYSICAL EXAMINATION: GENERAL: Appears mildly uncomfortable but no acute distress. HEAD: Atraumatic, normocephalic. EYES: Pupils equal round and reactive to light, extraocular movements intact, sclera anicteric, conjunctiva are normal. ENT: nares patent, oropharynx clear without exudates. Moist mucous membranes. NECK: Normal range of motion, supple without lymphadenopathy LUNGS: Breath sounds clear to auscultation bilaterally and equal. No wheezes rales or rhonchi. HEART: Regular rate and rhythm without murmurs ABDOMEN: Soft, nontender, normoactive bowel sounds. No guarding, no rebound. No masses appreciated. EXTREMITIES: Normal range of motion, no pitting or edema. No cyanosis. NEUROLOGICAL: No focal neurological deficits. Moves all extremities spontaneously and on command. PSYCH: Normal mood, normal affect. SKIN: Warm, Dry, normal turgor, no rashes or lesions noted. Course - Re-evaluation Re-evalutation: 11/24/16 01:33 Presentation is most consistent with an uncomplicated sickle cell pain crisis. Patient has no evidence of an aplastic crisis on labs. Chest x-ray and vitals are not consistent with acute chest syndrome. Atelectatic changes at bilateral bases unchanged from his baseline his chest x-ray does not all appear like he did when he had acute chest syndrome in September. Moreover patient remains without hypoxemia or tachypnea. Patient's pain has been able to be controlled using IV analgesia. At this time will discharge with return precautions and follow- up recommendations. Verbal discharge instructions given a the bedside and opportunity for questions given. Medication warnings reviewed. Patient is in agreement with this plan and has verbalized understanding of return precautions and the need for primary care follow-up in the next 24-72 hours. - Vital Signs Vital signs: Temp Pulse Resp BP Pulse Ox 98.7 F 69 18 133/92 H 100 11/24/16 01:09 11/24/16 01:09 11/24/16 01:09 11/24/16 02:31 11/24/16 02:31 - Laboratory Result Diagrams: 11/24/16 02:43 11/24/16 02:43 Laboratory results interpreted by me: 11/24/16 02:43 RBC 3.03 L Hgb 10.0 L Hct 29.0 L RDW 22.4 H Monocytes % (Manual) 14 H Retic Count (auto) 8.58 H Absolute Retic 0.260 H - Diagnostic Test Radiology reviewed: Image reviewed, Reports reviewed Radiology results interpreted by me: 11/24/16 03:45 CXR: Atelectasis at the bilateral bases. Discharge - Discharge Clinical Impression: Sickle cell crisis Anemia Qualifiers: Anemia type: acquired or hereditary hemolytic anemia Hemolytic anemia type: hereditary hemolytic anemia, unspecified Qualified Code(s): D58.9 - Hereditary hemolytic anemia, unspecified Condition: Stable Disposition: HOME, SELF-CARE Additional Instructions: You were seen today for sickle cell pain crisis. 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 Returning to the ED if you have worsening pain, fever greater than 100.4, shortness of breath, persistent vomiting, or any other symptoms that are concerning to you.
[2016-11-24] MEDS ORDERED: DIPHENHYDRAMINE HCL 50 MG/ML VIAL ONE (01:46)
[2016-11-24] MEDS: HYDROMORPHONE HCL INJ/PF 2 MG/ML AMPULE IV PRN ×3 (01:55→04:16)
--- NOTE | 2016-11-24 02:50 | RADIOLOGY REPORT (SQ) ---
EXAM DESCRIPTION: CHEST SINGLE VIEW COMPLETED DATE/TIME: 11/24/2016 2:30 am REASON FOR STUDY: sob, sickle cell COMPARISON: Chest x-ray 10/14/2016. EXAM PARAMETERS: NUMBER OF VIEWS: One view. TECHNIQUE: Single frontal radiographic view of the chest acquired. RADIATION DOSE: NA LIMITATIONS: None. FINDINGS: LUNGS AND PLEURA: Ground-glass opacities at the bilateral lung bases. No pleural effusion or pneumothorax. MEDIASTINUM AND HILAR STRUCTURES: No masses. Contour normal. HEART AND VASCULAR STRUCTURES: Heart is upper normal limit in size. No overt vascular congestion. BONES: No acute findings. HARDWARE: Left-sided Port-A-Cath with the tip overlying the region of the SVC. IMPRESSION: Ground-glass opacities at the bilateral lung bases, may represent atelectasis or pneumon ia. TECHNICAL DOCUMENTATION: JOB ID: [id number]
[2016-11-24] MEDS ORDERED: NORMAL SALINE 1000 ML 1,000 ML IV ONE (02:51)
[2016-11-24 03:05] LABS: ANION GAP 11 (5-19); BLOOD UREA NITROGEN 8 mg/dL (7-20); CALCIUM 8.4 mg/dL (8.4-10.2); CARBON DIOXIDE 25 mmol/L (22-30); CHLORIDE 105 mmol/L (98-107); CREATININE RESULT 0.65 mg/dL (0.52-1.25); GLUCOSE 98 mg/dL (75-110); POTASSIUM 3.9 mmol/L (3.6-5.0); SODIUM 141.2 mmol/L (137-145)
[2016-11-24 03:20] LABS: MEAN CORPUSCULAR VOLUME 96 fl (80-97)
[2016-11-24 03:29] LABS: BASOPHILS % (MANUAL) 0 % (0-2); EOSINOPHILS % (MANUAL) 0 % (0-6); LYMPHOCYTES % (MANUAL) 20 % (13-45); NUCLEATED RED BLOOD CELLS 3 /100 WBC (0); TOTAL CELLS COUNTED 100
[2016-11-24 03:34] LABS: ANISOCYTOSIS 3+; OVALOCYTES SLIGHT; POIKILOCYTOSIS 1+; POLYCHROMASIA 1+; SCHISTOCYTES SLIGHT; TARGET CELLS SLIGHT; TOXIC GRANULATION SLIGHT
[2016-11-24 03:35] LABS: MEAN CORPUSCULAR HEMOGLOBIN 32.9 pg (27.0-33.4); MEAN CORPUSCULAR HGB CONC 34.4 g/dL (32.0-36.0); RED BLOOD COUNT 3.03 10^6/uL (4.35-5.55); RED CELL DISTRIBUTION WIDTH 22.4 % (11.5-14.0)
--- NOTE | 2016-11-24 06:20 | ER Document Report ---
Doctor's Note Notes: 11/24/16 06:19 The patient was resting quietly with his eyes closed. Should his foot to wake him up to review his lab work and progress. He has not been vomiting. He does not have any findings concerning for infection or acute chest syndrome. There is no reason he cannot go home and take his pain medication at home.
[2016-11-24 06:34] VITALS: BP 139/102
== END 2016-11-24 06:55 | disposition home or self-care (01) ==
LOC: ER 01:06
DX: D57.00 Hb-SS disease with crisis, unspecified (principal); D58.9 Hereditary hemolytic anemia, unspecified; R06.02 Shortness of breath
CPT/HCPCS: 36591; 96376; 99284; 96361; 96374; 36415; 85025; 85045; 80048; 71010; A9270; J1170; J7030

== ENCOUNTER 2017-03-30 07:11 | Emergency (ER) | payer MEDICARE, MEDICAID ==
[2017-03-30] MEDS ORDERED: NORMAL SALINE 1000 ML 1,000 ML IV PRN (07:35)
[2017-03-30] MEDS ORDERED: NORMAL SALINE 1000 ML 1,000 ML IV ONE (07:35)
[2017-03-30] MEDS ORDERED: MORPHINE SULFATE 10 MG/ML INJ IV ONE (07:37)
[2017-03-30] MEDS ORDERED: DIPHENHYDRAMINE HCL 50 MG/ML VIAL IV ONE (07:39)
--- NOTE | 2017-03-30 07:48 | ER Document Report ---
ED General Pain - General Chief Complaint: Sickle Cell Crisis Stated Complaint: SHORTNESS OF BREATH Time Seen by Provider: 03/30/17 07:31 Notes: History of present illness 36 years old male with a history of sickle cell disease presents today with joint pains and generalized body pains. He states he was exposed to remain cold which triggered a sickle cell crisis. Had some runny nose but otherwise no fever chills cough or difficulty in breathing. Denies any dysuria frequency urgency but had some dark urine. States that he takes oxycodone at home, and when he presents to the ED they gave always Dilaudid starting with 2 mg. TRAVEL OUTSIDE OF THE [place] IN LAST 30 DAYS: No - Related Data Allergies/Adverse Reactions: famotidine [From Pepcid] Allergy (Severe, Verified 03/30/17 08:57) Anaphylaxis ketorolac tromethamine [From Toradol] Allergy (Severe, Verified 03/30/17 08:57) levofloxacin [From Levaquin] Allergy (Severe, Verified 03/30/17 08:57) meperidine HCl [From Demerol] Allergy (Severe, Verified 03/30/17 08:57) morphine [Morphine] Allergy (Severe, Verified 03/30/17 08:57) tramadol HCl [From Ultram] Allergy (Severe, Verified 03/30/17 08:57) amoxicillin [Amoxicillin] Allergy (Verified 03/30/17 08:57) fentanyl [Fentanyl] Allergy (Verified 03/30/17 08:57) latex [Latex] Allergy (Verified 03/30/17 08:57) ondansetron HCl [From Zofran] Allergy (Verified 03/30/17 08:57) Past Medical History - Social History Smoking Status: Never Smoker Chew tobacco use (# tins/day): No Frequency of alcohol use: None Drug Abuse: None Family History: Reviewed & Not Pertinent, Other Patient has suicidal ideation: No Patient has homicidal ideation: No - Past Medical History Cardiac Medical History: Denies: Hx Atrial Fibrillation, Hx Congestive Heart Failure, Hx Coronary Artery Disease Pulmonary Medical History: Denies: Hx Bronchitis, Hx Tuberculosis Neurological Medical History: Reports: Hx Seizures Endocrine Medical History: Denies: Hx Diabetes Mellitus Type 1 Renal/ Medical History: Denies: Hx Peritoneal Dialysis Musculoskeltal Medical History: Reports Hx Musculoskeletal Deformity - right hip avascular necrosis Psychiatric Medical History: Denies: Hx Depression Past Surgical History: Reports: Hx Appendectomy, Hx Vascular Surgery - port placement - Immunizations Immunizations up to date: Yes Hx Diphtheria, Pertussis, Tetanus Vaccination: Yes Hx Pneumococcal Vaccination: 02/20/11 Review of Systems - Review of Systems Notes: REVIEW OF SYSTEMS: CONSTITUTIONAL : Denies fever, chills, or sweats. Denies recent illness. EENT: Denies eye, ear, throat, or mouth pain or symptoms. Denies nasal or sinus congestion or discharge. Denies throat, tongue, or mouth swelling or difficulty swallowing. CARDIOVASCULAR: Denies chest pain. Denies palpitations or racing or irregular heart beat. Denies ankle edema. RESPIRATORY: Denies cough, cold, or chest congestion. Denies shortness of breath, difficulty breathing, or wheezing. GASTROINTESTINAL: Denies abdominal pain or distention. Denies nausea, vomiting , or diarrhea. Denies blood in vomitus, stools, or per rectum. Denies black, tarry stools. Denies constipation. GENITOURINARY: Denies difficulty urinating, painful urination, burning, frequency, blood in urine, or discharge. MUSCULOSKELETAL: As per history of complain. SKIN: Denies rash, lesions or sores. HEMATOLOGIC : Denies easy bruising or bleeding. LYMPHATIC: Denies swollen, enlarged glands. NEUROLOGICAL: Denies confusion or altered mental status. Denies passing out or loss of consciousness. Denies dizziness or lightheadedness. Denies headache. Denies weakness or paralysis or loss of use of either side. Denies problems with gait or speech. Denies sensory loss, numbness, or tingling. Denies seizures. PSYCHIATRIC: Denies anxiety or stress. Denies depression, suicidal ideation, or homicidal ideation. ALL OTHER SYSTEMS REVIEWED AND NEGATIVE. Dictation was performed using [employer] voice recognition software PHYSICAL EXAMINATION: GENERAL: Appears to be in pain, conjunctivae icteric HEAD: Atraumatic, normocephalic. EYES: Pupils equal round and reactive to light, extraocular movements intact, sclera anicteric, conjunctiva are normal. ENT: Nares patent, oropharynx clear without exudates. Moist mucous membranes. NECK: Normal range of motion, supple without lymphadenopathy LUNGS: Breath sounds clear to auscultation bilaterally and equal. No wheezes rales or rhonchi. HEART: Regular rate and rhythm without murmurs ABDOMEN: Soft, nontender, nondistended abdomen. No guarding, no rebound. No masses appreciated. Liver appears to be enlarged on palpation Musculoskeletal: Normal range of motion, no pitting or edema. No cyanosis. NEUROLOGICAL: Cranial nerves grossly intact. Normal speech, normal gait. Normal sensory, motor exams PSYCH: Normal mood, normal affect. SKIN: Warm, Dry, normal turgor, no rashes or lesions noted. Physical Exam - Vital signs Vitals: Temp Pulse Resp BP Pulse Ox 98.8 F 66 14 129/73 H 90 L 03/30/17 07:18 03/30/17 07:18 03/30/17 07:18 03/30/17 07:18 03/30/17 07:18 Course - Re-evaluation Re-evalutation: 03/30/17 11:44 Patient reevaluated pain has improved but not completely gone. - Vital Signs Vital signs: Temp Pulse Resp BP Pulse Ox 98.8 F 98 20 160/93 H 98 03/30/17 07:18 03/30/17 08:39 03/30/17 08:39 03/30/17 08:39 03/30/17 08:39 - Laboratory Result Diagrams: 03/30/17 07:50 03/30/17 07:50 Laboratory results interpreted by me: 03/30/17 03/30/17 07:50 07:50 RBC 2.60 L Hgb 9.5 L Hct 26.9 L MCV 103 H MCH 36.5 H RDW 18.6 H ESR 16 H Retic Count (auto) 8.37 H Absolute Retic 0.218 H Total Bilirubin 2.7 H Discharge - Discharge Clinical Impression: Pain syndrome, chronic Sickle cell disease Qualifiers: Sickle-cell associated disorders: without crisis Qualified Code(s): D57.1 - Sickle-cell disease without crisis Disposition: HOME, SELF-CARE Instructions: Sickle Cell Crisis ([facility])
[2017-03-30 08:14] LABS: HEMATOCRIT 26.9 % (37.9-51.0); HEMOGLOBIN 9.5 g/dL (13.5-17.0); HGB HCT DIFFERENCE 1.6; MEAN CORPUSCULAR HEMOGLOBIN 36.5 pg (27.0-33.4); MEAN CORPUSCULAR HGB CONC 35.4 g/dL (32.0-36.0); MEAN CORPUSCULAR VOLUME 103 fl (80-97); RED CELL DISTRIBUTION WIDTH 18.6 % (11.5-14.0); WHITE BLOOD COUNT 8.4 10^3/uL (4.0-10.5)
[2017-03-30 08:29] LABS: ABSOLUTE EOSINOPHILS# (MANUAL) 0.2 10^3/uL (0.0-0.6); BASOPHILS % (MANUAL) 0 % (0-2); EOSINOPHILS % (MANUAL) 2 % (0-6); LYMPHOCYTES % (MANUAL) 16 % (13-45); NUCLEATED RED BLOOD CELLS 9 /100 WBC (0); TOTAL CELLS COUNTED 100
[2017-03-30 08:30] LABS: ALANINE AMINOTRANSFERASE 36 U/L (21-72); ALBUMIN 4.2 g/dL (3.5-5.0); ALKALINE PHOSPHATASE 64 U/L (38-126); ANION GAP 10 (5-19); ASPARTATE AMINO TRANSFERASE 37 U/L (17-59); BILIRUBIN,DIRECT 0.4 mg/dL (0.0-0.4); BILIRUBIN,TOTAL 2.7 mg/dL (0.2-1.3); BLOOD UREA NITROGEN 11 mg/dL (7-20); CARBON DIOXIDE 27 mmol/L (22-30); CHLORIDE 104 mmol/L (98-107); CREATININE RESULT 0.71 mg/dL (0.52-1.25); GLUCOSE 98 mg/dL (75-110); POTASSIUM 3.9 mmol/L (3.6-5.0); SODIUM 141.3 mmol/L (137-145); TOTAL PROTEIN 7.8 g/dL (6.3-8.2)
[2017-03-30 08:31] LABS: ANISOCYTOSIS 2+; OVALOCYTES 1+; POIKILOCYTOSIS 2+; POLYCHROMASIA SLIGHT; SCHISTOCYTES SLIGHT; TARGET CELLS 1+
[2017-03-30] MEDS ORDERED: HYDROMORPHONE HCL INJ/PF 2 MG/ML AMPULE IV ONE ×2 (08:40→09:57)
[2017-03-30] MEDS ORDERED: HYDROMORPHONE HCL INJ/PF 2 MG/ML AMPULE ONE (08:43)
[2017-03-30 08:50] LABS: ERYTHROCYTE SEDIMENTATION RATE 16 mm/hr (0-15)
[2017-03-30 09:21] LABS: STAIN REACTIVITY CHECK ACCEPTABLE
[2017-03-30 12:01] VITALS: BP 127/73
== END 2017-03-30 12:18 | disposition home or self-care (01) ==
LOC: ER 07:11
DX: G89.4 Chronic pain syndrome (principal); M25.50 Pain in unspecified joint; D57.1 Sickle-cell disease without crisis; R09.89 Other specified symptoms and signs involving the circulatory and respiratory systems; R39.89 Other symptoms and signs involving the genitourinary system; Z79.891 Long term (current) use of opiate analgesic; Z88.1 Allergy status to other antibiotic agents; Z88.5 Allergy status to narcotic agent; Z88.0 Allergy status to penicillin; Z91.040 Latex allergy status; Z87.892 Personal history of anaphylaxis; Z88.8 Allergy status to other drugs, medicaments and biological substances
CPT/HCPCS: 36591; 96376; 99284; 96361; 96374; 96375; 36415; 85025; 85652; 85045; 80053; J1200; J1170; J7030

== ENCOUNTER 2017-04-05 12:21 | Emergency (ER) | payer MEDICARE, MEDICAID ==
--- NOTE | 2017-04-05 12:37 | ER Document Report ---
ED Medical Screen (RME) - General Chief Complaint: Sickle Cell Crisis Stated Complaint: BODY PAIN, HEADACHE Time Seen by Provider: 04/05/17 12:31 Notes: 36-year-old sickle cell patient on chronic pain management. Works as a [employer]. He reports onset last night of symptoms that are worse today. He has generalized pain, joint pain, muscle pain, abdominal pain, headache. He also has occasional cough and states he feels like his temperature may be up and down but no documented fever. I have greeted and performed a rapid initial assessment of this patient. A comprehensive ED assessment and evaluation of the patient, analysis of test results and completion of the medical decision making process will be conducted by additional ED providers. TRAVEL OUTSIDE OF THE [place] IN LAST 30 DAYS: No - Related Data Allergies/Adverse Reactions: famotidine [From Pepcid] Allergy (Severe, Verified 04/05/17 12:22) Anaphylaxis ketorolac tromethamine [From Toradol] Allergy (Severe, Verified 04/05/17 12:22) levofloxacin [From Levaquin] Allergy (Severe, Verified 04/05/17 12:22) meperidine HCl [From Demerol] Allergy (Severe, Verified 04/05/17 12:22) morphine [Morphine] Allergy (Severe, Verified 04/05/17 12:22) tramadol HCl [From Ultram] Allergy (Severe, Verified 04/05/17 12:22) amoxicillin [Amoxicillin] Allergy (Verified 04/05/17 12:22) fentanyl [Fentanyl] Allergy (Verified 04/05/17 12:22) latex [Latex] Allergy (Verified 04/05/17 12:22) ondansetron HCl [From Zofran] Allergy (Verified 04/05/17 12:22) Past Medical History - Social History Frequency of alcohol use: None Drug Abuse: None - Past Medical History Cardiac Medical History: Denies: Hx Atrial Fibrillation, Hx Congestive Heart Failure, Hx Coronary Artery Disease Pulmonary Medical History: Denies: Hx Bronchitis, Hx Tuberculosis Neurological Medical History: Reports: Hx Seizures Endocrine Medical History: Denies: Hx Diabetes Mellitus Type 1 Renal/ Medical History: Denies: Hx Peritoneal Dialysis Musculoskeltal Medical History: Reports Hx Musculoskeletal Deformity - right hip avascular necrosis Psychiatric Medical History: Denies: Hx Depression Past Surgical History: Reports: Hx Appendectomy, Hx Vascular Surgery - port placement - Immunizations Immunizations up to date: Yes Hx Diphtheria, Pertussis, Tetanus Vaccination: Yes Physical Exam - Vital signs Vitals: Temp Pulse Resp BP Pulse Ox 98.8 F 62 16 116/68 97 04/05/17 12:25 04/05/17 12:25 04/05/17 12:25 04/05/17 12:25 04/05/17 12:25 Course - Vital Signs Vital signs: Temp Pulse Resp BP Pulse Ox 98.8 F 62 16 116/68 97 04/05/17 12:25 04/05/17 12:25 04/05/17 12:25 04/05/17 12:25 04/05/17 12:25
[2017-04-05 13:15] LABS: HEMATOCRIT 28.4 % (37.9-51.0); HEMOGLOBIN 9.8 g/dL (13.5-17.0); MEAN CORPUSCULAR HEMOGLOBIN 35.7 pg (27.0-33.4); MEAN CORPUSCULAR HGB CONC 34.4 g/dL (32.0-36.0); MEAN CORPUSCULAR VOLUME 104 fl (80-97); RED BLOOD COUNT 2.74 10^6/uL (4.35-5.55); RED CELL DISTRIBUTION WIDTH 18.1 % (11.5-14.0)
[2017-04-05 13:40] LABS: ALANINE AMINOTRANSFERASE 30 U/L (21-72); ALBUMIN 4.2 g/dL (3.5-5.0); ALKALINE PHOSPHATASE 68 U/L (38-126); ANION GAP 14 (5-19); ASPARTATE AMINO TRANSFERASE 25 U/L (17-59); BILIRUBIN,DIRECT 0.3 mg/dL (0.0-0.4); BILIRUBIN,TOTAL 2.2 mg/dL (0.2-1.3); BLOOD UREA NITROGEN 9 mg/dL (7-20); CALCIUM 8.7 mg/dL (8.4-10.2); CARBON DIOXIDE 23 mmol/L (22-30); CHLORIDE 107 mmol/L (98-107); CREATININE RESULT 0.64 mg/dL (0.52-1.25); GLUCOSE 89 mg/dL (75-110); POTASSIUM 3.6 mmol/L (3.6-5.0); SODIUM 143.9 mmol/L (137-145); TOTAL PROTEIN 7.5 g/dL (6.3-8.2)
[2017-04-05 13:42] LABS: ABSOLUTE EOSINOPHILS# (MANUAL) 0.1 10^3/uL (0.0-0.6); BASOPHILS % (MANUAL) 0 % (0-2); EOSINOPHILS % (MANUAL) 1 % (0-6); LYMPHOCYTES % (MANUAL) 38 % (13-45); NUCLEATED RED BLOOD CELLS 5 /100 WBC (0); TOTAL CELLS COUNTED 100
[2017-04-05 13:45] LABS: ANISOCYTOSIS 1+; HYPOCHROMASIA SLIGHT; POLYCHROMASIA 1+; ROULEAUX 1+
[2017-04-05 13:46] LABS: TARGET CELLS 1+
[2017-04-05] MEDS ORDERED: HYDROMORPHONE HCL INJ/PF 2 MG/ML AMPULE IV ONE (14:04)
[2017-04-05] MEDS ORDERED: NORMAL SALINE 1000 ML 1,000 ML IV ONE (14:04)
[2017-04-05] MEDS ORDERED: DIPHENHYDRAMINE HCL 50 MG CAPSULE PO ONE (14:20)
--- NOTE | 2017-04-05 14:22 | ER Document Report ---
ED General - General Chief Complaint: Sickle Cell Crisis Stated Complaint: BODY PAIN, HEADACHE Time Seen by Provider: 04/05/17 12:31 Mode of Arrival: Ambulatory Information source: Patient Notes: 36-year-old male history of sickle cell disease SS presents with complaints of generalized joint pain. Patient denies any chest pain shortness breath difficulty breathing or any fevers. Patient notes he has been taking his home pain medication but with the change in the weather that he has flareups. It is noted patient has been here recently TRAVEL OUTSIDE OF THE [place] IN LAST 30 DAYS: No - HPI Onset: Just prior to arrival Onset/Duration: Sudden Quality of pain: Achy Severity: Mild Pain Level: 1 - Patient is resting comfortably in no distress Associated symptoms: Body/muscle aches Exacerbated by: Movement Relieved by: Denies Similar symptoms previously: Yes Recently seen / treated by doctor: Yes - Related Data Allergies/Adverse Reactions: famotidine [From Pepcid] Allergy (Severe, Verified 04/05/17 12:22) Anaphylaxis ketorolac tromethamine [From Toradol] Allergy (Severe, Verified 04/05/17 12:22) levofloxacin [From Levaquin] Allergy (Severe, Verified 04/05/17 12:22) meperidine HCl [From Demerol] Allergy (Severe, Verified 04/05/17 12:22) morphine [Morphine] Allergy (Severe, Verified 04/05/17 12:22) tramadol HCl [From Ultram] Allergy (Severe, Verified 04/05/17 12:22) amoxicillin [Amoxicillin] Allergy (Verified 04/05/17 12:22) fentanyl [Fentanyl] Allergy (Verified 04/05/17 12:22) latex [Latex] Allergy (Verified 04/05/17 12:22) ondansetron HCl [From Zofran] Allergy (Verified 04/05/17 12:22) Home Medications: Current Home Medications Multivitamin [Multivitamins] 1 each PO DAILY 04/05/17 [History] Oxycodone HCl [Oxycodone HCl 10 MG Tablet] 10 mg PO BID PRN 04/05/17 [History] Past Medical History - Social History Smoking Status: Never Smoker Cigarette use (# per day): No Chew tobacco use (# tins/day): No Smoking Education Provided: No Frequency of alcohol use: None Drug Abuse: None Family History: Reviewed & Not Pertinent, Other Patient has suicidal ideation: No Patient has homicidal ideation: No - Past Medical History Cardiac Medical History: Denies: Hx Atrial Fibrillation, Hx Congestive Heart Failure, Hx Coronary Artery Disease Pulmonary Medical History: Denies: Hx Bronchitis, Hx Tuberculosis Neurological Medical History: Reports: Hx Seizures Endocrine Medical History: Denies: Hx Diabetes Mellitus Type 1 Renal/ Medical History: Denies: Hx Peritoneal Dialysis Musculoskeltal Medical History: Reports Hx Musculoskeletal Deformity - right hip avascular necrosis Psychiatric Medical History: Denies: Hx Depression Past Surgical History: Reports: Hx Appendectomy, Hx Vascular Surgery - L port placement - Immunizations Immunizations up to date: Yes Hx Diphtheria, Pertussis, Tetanus Vaccination: Yes Hx Pneumococcal Vaccination: 02/20/11 Review of Systems - Review of Systems Notes: REVIEW OF SYSTEMS: CONSTITUTIONAL : Denies fever, chills, or sweats. Denies recent illness. EENT: Denies eye, ear, throat, or mouth pain or symptoms. Denies nasal or sinus congestion or discharge. Denies throat, tongue, or mouth swelling or difficulty swallowing. CARDIOVASCULAR: Denies chest pain. Denies palpitations or racing or irregular heart beat. Denies ankle edema. RESPIRATORY: Denies cough, cold, or chest congestion. Denies shortness of breath, difficulty breathing, or wheezing. GASTROINTESTINAL: Denies abdominal pain or distention. Denies nausea, vomiting , or diarrhea. Denies blood in vomitus, stools, or per rectum. Denies black, tarry stools. Denies constipation. GENITOURINARY: Denies difficulty urinating, painful urination, burning, frequency, blood in urine, or discharge. MUSCULOSKELETAL: Admits to joint pain SKIN: Denies rash, lesions or sores. HEMATOLOGIC : Denies easy bruising or bleeding. LYMPHATIC: Denies swollen, enlarged glands. NEUROLOGICAL: Denies confusion or altered mental status. Denies passing out or loss of consciousness. Denies dizziness or lightheadedness. Denies headache. Denies weakness or paralysis or loss of use of either side. Denies problems with gait or speech. Denies sensory loss, numbness, or tingling. Denies seizures. PSYCHIATRIC: Denies anxiety or stress. Denies depression, suicidal ideation, or homicidal ideation. ALL OTHER SYSTEMS REVIEWED AND NEGATIVE. Dictation was performed using [employer] recognition software PHYSICAL EXAMINATION: GENERAL: Well-appearing, well-nourished and in no acute distress. HEAD: Atraumatic, normocephalic. EYES: Pupils equal round and reactive to light, extraocular movements intact, sclera anicteric, conjunctiva are normal. ENT: Nares patent, oropharynx clear without exudates. Moist mucous membranes. NECK: Normal range of motion, supple without lymphadenopathy LUNGS: Breath sounds clear to auscultation bilaterally and equal. No wheezes rales or rhonchi. HEART: Regular rate and rhythm without murmurs ABDOMEN: Soft, nontender, nondistended abdomen. No guarding, no rebound. No masses appreciated. Musculoskeletal: Normal range of motion, no pitting or edema. No cyanosis. NEUROLOGICAL: Cranial nerves grossly intact. Normal speech, normal gait. Normal sensory, motor exams PSYCH: Normal mood, normal affect. SKIN: Warm, Dry, normal turgor, no rashes or lesions noted. Physical Exam - Vital signs Vitals: Temp Pulse Resp BP Pulse Ox 98.8 F 62 16 116/68 97 04/05/17 12:25 04/05/17 12:25 04/05/17 12:25 04/05/17 12:25 04/05/17 12:25 Course - Re-evaluation Re-evalutation: 04/05/17 20:37 On evaluation patient is in absolutely no distress, he is resting comfortably watching television playing on his phone, lab work was performed which is consistent with his previous presentations, given that the patient is afebrile has normal vital signs he looks well is in no distress I did give him pain medication and Benadryl at his request. Patient was given oral Benadryl. Given that he is resting comfortably I believe he is stable for discharge to follow-up with his property man for further care. We did have a very long discussion regarding his hip pain which is chronic due to avascular necrosis and patient will follow-up with Ortho [facility] for this After performing a Medical Screening Examination, I estimate there is LOW risk for RUPTURED ESOPHAGUS, PNEUMOTHORAX, PULMONARY EMBOLISM, ACUTE CORONARY SYNDROME, OR THORACIC AORTIC DISSECTION, thus I consider the discharge disposition reasonable. I have reevaluated this patient multiple times and no significant life threatening changes are noted. The patient and I have discussed the diagnosis and risks, and we agree with discharging home with close follow-up. We also discussed returning to the Emergency Department immediately if new or worsening symptoms occur. We have discussed the symptoms which are most concerning (e.g., bloody sputum, worsening pain or shortness of breath) that necessitate immediate return. - Vital Signs Vital signs: Temp Pulse Resp BP Pulse Ox 98.2 F 62 11 L 118/74 99 04/05/17 15:01 04/05/17 12:25 04/05/17 15:01 04/05/17 15:01 04/05/17 15:01 - Laboratory Result Diagrams: 04/05/17 12:57 04/05/17 12:57 Laboratory results interpreted by me: 04/05/17 04/05/17 12:57 12:57 RBC 2.74 L Hgb 9.8 L Hct 28.4 L MCV 104 H MCH 35.7 H RDW 18.1 H Retic Count (auto) 8.26 H Absolute Retic 0.226 H Total Bilirubin 2.2 H Discharge - Discharge Clinical Impression: Sickle cell disease Qualifiers: Sickle-cell associated disorders: without crisis Qualified Code(s): D57.1 - Sickle-cell disease without crisis Joint pain Qualifiers: Joint pain location: unspecified Qualified Code(s): M25.50 - Pain in unspecified joint Condition: Stable Disposition: HOME, SELF-CARE Additional Instructions: Please follow-up with your your property man for further evaluation and care
[2017-04-05 15:23] VITALS: BP 118/74
== END 2017-04-05 15:23 | disposition home or self-care (01) ==
LOC: ER 12:21
DX: D57.1 Sickle-cell disease without crisis (principal); M25.50 Pain in unspecified joint; M79.1 Myalgia; R51 Headache; Z79.899 Other long term (current) drug therapy
CPT/HCPCS: 36591; 99284; 96361; 96374; 36415; 85025; 85045; 80053; A9270; J1170; J7030

== ENCOUNTER 2017-04-06 07:22 | Emergency (ER) | payer MEDICARE, MEDICAID ==
[2017-04-06] MEDS ORDERED: HYDROMORPHONE HCL INJ/PF 2 MG/ML AMPULE IV ONE ×2 (08:13→10:04)
[2017-04-06] MEDS ORDERED: NORMAL SALINE 1000 ML 1,000 ML IV ONE ×2 (08:13→10:04)
[2017-04-06] MEDS ORDERED: DIPHENHYDRAMINE HCL 50 MG/ML VIAL IV ONE ×2 (08:13→10:08)
--- NOTE | 2017-04-06 09:05 | ER Document Report ---
ED General - General Chief Complaint: Sickle Cell Crisis Stated Complaint: BODY PAIN,HEADACHE Time Seen by Provider: 04/06/17 07:55 Mode of Arrival: Ambulatory Information source: Patient Notes: Patient presents to emergency department with complaints of joints cracking feeling cold. He reports symptoms started last week but has been constant for the past 3 days. He denies fever vomiting diarrhea. Reports history of sickle cell. He has been evaluated here in the ED multiple times recently. Complains of hip pain but reports no trauma. Reports he last saw his orthopedic 2 weeks ago and had a hip x-ray 2 weeks ago. Also reports his next appointment with his sickle cell provider is May 08. He reports he is worried he will run out of pain medication because he has had to take extra. He did not take any pain medication today. Usually takes 10mg oxydone. He reports increased flare when it is cold outside. Denies fever vomiting diarrhea. Denies cough but reports runny nose sometimes stuffy nose. Reports he is eating drinking as normal. Denies problems voiding. TRAVEL OUTSIDE OF THE [place] IN LAST 30 DAYS: No - HPI Onset: Other Onset/Duration: Persistent Quality of pain: Achy Pain Level: 4 Associated symptoms: Body/muscle aches, Headache Exacerbated by: Denies Relieved by: Denies Similar symptoms previously: Yes Recently seen / treated by doctor: Yes - Related Data Allergies/Adverse Reactions: famotidine [From Pepcid] Allergy (Severe, Verified 04/06/17 07:57) Anaphylaxis ketorolac tromethamine [From Toradol] Allergy (Severe, Verified 04/06/17 07:57) levofloxacin [From Levaquin] Allergy (Severe, Verified 04/06/17 07:57) meperidine HCl [From Demerol] Allergy (Severe, Verified 04/06/17 07:57) morphine [Morphine] Allergy (Severe, Verified 04/06/17 07:57) tramadol HCl [From Ultram] Allergy (Severe, Verified 04/06/17 07:57) amoxicillin [Amoxicillin] Allergy (Verified 04/06/17 07:57) fentanyl [Fentanyl] Allergy (Verified 04/06/17 07:57) latex [Latex] Allergy (Verified 04/06/17 07:57) ondansetron HCl [From Zofran] Allergy (Verified 04/06/17 07:57) Past Medical History - General Information source: Patient - Social History Smoking Status: Never Smoker Cigarette use (# per day): No Frequency of alcohol use: None Drug Abuse: None 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 Lives with: Family Family History: Reviewed & Not Pertinent, Other Patient has suicidal ideation: No Patient has homicidal ideation: No - Past Medical History Cardiac Medical History: Denies: Hx Atrial Fibrillation, Hx Congestive Heart Failure, Hx Coronary Artery Disease Pulmonary Medical History: Denies: Hx Bronchitis, Hx Tuberculosis Neurological Medical History: Reports: Hx Seizures Endocrine Medical History: Denies: Hx Diabetes Mellitus Type 1 Renal/ Medical History: Denies: Hx Peritoneal Dialysis Musculoskeltal Medical History: Reports Hx Musculoskeletal Deformity - right hip avascular necrosis Psychiatric Medical History: Denies: Hx Depression Past Surgical History: Reports: Hx Appendectomy, Hx Vascular Surgery - L port placement - Immunizations Immunizations up to date: Yes Hx Diphtheria, Pertussis, Tetanus Vaccination: Yes Hx Pneumococcal Vaccination: 02/20/11 Review of Systems - Review of Systems Notes: Review HPI for review of systems., All other systems negative Physical Exam - Vital signs Vitals: Temp Pulse Resp BP Pulse Ox 98.2 F 56 L 18 128/82 H 99 04/06/17 07:28 04/06/17 07:28 04/06/17 07:28 04/06/17 07:28 04/06/17 07:28 - Notes Notes: PHYSICAL EXAMINATION: GENERAL: Well-appearing and in no acute distress HEAD: Atraumatic, normocephalic. EYES: Pupils equal round and reactive to light, extraocular movements intact, sclera anicteric, conjunctiva are normal. ENT: nares patent, oropharynx clear without exudates. Moist mucous membranes. NECK: Normal range of motion, supple without lymphadenopathy LUNGS: CTAB and equal. No wheezes rales or rhonchi. left port HEART: Regular rate and rhythm without murmurs ABDOMEN: Soft, no tenderness. No guarding, no rebound EXTREMITIES: Normal range of motion, no pitting edema. No cyanosis. NEUROLOGICAL: Cranial nerves grossly intact. Normal sensory/motor exams. PSYCH: Normal mood, normal affect. SKIN: Warm, Dry, normal turgor, no rashes or lesions noted Course - Re-evaluation Re-evalutation: 04/06/17 09:08 Patient reports no relief after pain medication. [place] provided will check labs 04/06/17 10:05 Lab work consistent with previous recent visits, Retic a little bit more increased. Reports he felt little bit of relief after there is the Dilaudid but the pain returned. Treated him with his own pain medication of oxycodone 10 mg. We will plan on giving him another liter of fluid and Dilaudid to help relieve him of his pain. Patient looks nontoxic watching TV no distress. Pt was instructed to call his pcp Saturday to discuss plan, pain medication - Vital Signs Vital signs: Temp Pulse Resp BP Pulse Ox 97.6 F 66 13 123/70 98 04/06/17 11:43 04/06/17 11:43 04/06/17 11:43 04/06/17 11:43 04/06/17 11:43 - Laboratory Result Diagrams: 04/06/17 08:25 04/06/17 08:25 Laboratory results interpreted by me: 04/06/17 04/06/17 08:25 08:25 RBC 2.61 L Hgb 9.5 L Hct 27.3 L MCV 104 H MCH 36.3 H RDW 18.7 H Retic Count (auto) 8.96 H Absolute Retic 0.234 H Sodium 145.4 H Chloride 110 H BUN 6 L Total Bilirubin 1.7 H Discharge - Discharge Clinical Impression: Sickle cell disease without crisis Condition: Stable Disposition: HOME, SELF-CARE Instructions: Intravenous (IV) Fluids ([facility]), Oral Narcotic Medication ([facility]), Sickle Cell Crisis ([facility]) Additional Instructions: *You have been evaluated for Sickle cell disease *Take your pain medication as prescribed *Follow up with your primary care provider Saturday *Return to ED for worsening condition, changes, needs, concerns Monitor your blood pressure. Your blood pressure was elevated today. This may be because you were anxious, in pain or because you need medication. It is important to follow up with your primary care provider for full evaluation. Forms: Elevated Blood Pressure
[2017-04-06 09:10] LABS: ALANINE AMINOTRANSFERASE 27 U/L (21-72); ALKALINE PHOSPHATASE 55 U/L (38-126); ANION GAP 10 (5-19); ASPARTATE AMINO TRANSFERASE 24 U/L (17-59); BILIRUBIN,DIRECT 0.2 mg/dL (0.0-0.4); BILIRUBIN,TOTAL 1.7 mg/dL (0.2-1.3); BLOOD UREA NITROGEN 6 mg/dL (7-20); CALCIUM 8.8 mg/dL (8.4-10.2); CARBON DIOXIDE 25 mmol/L (22-30); CHLORIDE 110 mmol/L (98-107); CREATININE RESULT 0.64 mg/dL (0.52-1.25); GLUCOSE 85 mg/dL (75-110); POTASSIUM 3.8 mmol/L (3.6-5.0); SODIUM 145.4 mmol/L (137-145)
[2017-04-06] MEDS ORDERED: OXYCODONE HCL SR 10 MG TABLET PO ONE (09:22)
[2017-04-06 09:27] LABS: ABSOLUTE BASOPHILS # (AUTO) 0.1 10^3/uL (0.0-0.2); ABSOLUTE LYMPHOCYTES (AUTO) 2.1 10^3/uL (0.5-4.7); ABSOLUTE MONOCYTES (AUTO) 0.5 10^3/uL (0.1-1.4); BASOPHILS % (AUTO) 1.6 % (0-2); EOSINOPHILS % (AUTO) 0.9 % (0-6); HEMATOCRIT 27.3 % (37.9-51.0); HEMOGLOBIN 9.5 g/dL (13.5-17.0); HGB HCT DIFFERENCE 1.2; LYMPHOCYTES % (AUTO) 44.3 % (13-45); MEAN CORPUSCULAR HEMOGLOBIN 36.3 pg (27.0-33.4); MEAN CORPUSCULAR HGB CONC 34.7 g/dL (32.0-36.0); MEAN CORPUSCULAR VOLUME 104 fl (80-97); MONOCYTES % (AUTO) 10.4 % (3-13); RED BLOOD COUNT 2.61 10^6/uL (4.35-5.55); RED CELL DISTRIBUTION WIDTH 18.7 % (11.5-14.0); SEGMENTED NEUTROPHILS % (AUTO) 42.8 % (42-78); WHITE BLOOD COUNT 4.7 10^3/uL (4.0-10.5)
[2017-04-06 09:36] LABS: ANISOCYTOSIS 2+; HYPOCHROMASIA SLIGHT; OVALOCYTES 1+; POLYCHROMASIA 2+
[2017-04-06 09:37] LABS: PLATELET CLUMPS PRESENT; ROULEAUX SLIGHT; TARGET CELLS 2+
[2017-04-06 11:45] VITALS: BP 123/70
== END 2017-04-06 11:45 | disposition home or self-care (01) ==
LOC: ER 07:22
DX: D57.1 Sickle-cell disease without crisis (principal); M79.1 Myalgia; R51 Headache; Z91.040 Latex allergy status; Z88.0 Allergy status to penicillin; Z88.6 Allergy status to analgesic agent
CPT/HCPCS: 36591; 96376; 99284; 96361; 96374; 96375; 36415; 85025; 85045; 80053; J1200; J1170; A9270; J7030

== ENCOUNTER 2017-05-10 17:50 | Emergency (ER) | payer MEDICARE, MEDICAID | END 2017-05-10 18:45 | disposition left against medical advice (07) | LOC: ER 17:50 | DX: Z53.21 Procedure and treatment not carried out due to patient leaving prior to being seen by health care provider (principal) ==

== ENCOUNTER 2017-06-04 04:34 | Emergency (ER) | payer MEDICARE, MEDICAID ==
[2017-06-04 06:43] LABS: ABSOLUTE RETICS # 0.161 10^6/uL (0.028-0.122); HEMATOCRIT 27.7 % (37.9-51.0); HEMOGLOBIN 9.7 g/dL (13.5-17.0); MEAN CORPUSCULAR HEMOGLOBIN 37.3 pg (27.0-33.4); MEAN CORPUSCULAR HGB CONC 35.1 g/dL (32.0-36.0); MEAN CORPUSCULAR VOLUME 106 fl (80-97); PLATELET COUNT 306 10^3/uL (150-450); RED BLOOD COUNT 2.61 10^6/uL (4.35-5.55); RED CELL DISTRIBUTION WIDTH 18.6 % (11.5-14.0); RETICULOCYTE COUNT (AUTO) 6.15 % (0.66-2.85); WHITE BLOOD COUNT 4.5 10^3/uL (4.0-10.5)
[2017-06-04 06:50] LABS: ALANINE AMINOTRANSFERASE 22 U/L (21-72); ALBUMIN 4.2 g/dL (3.5-5.0); ALKALINE PHOSPHATASE 62 U/L (38-126); ANION GAP 8 (5-19); ASPARTATE AMINO TRANSFERASE 28 U/L (17-59); BLOOD UREA NITROGEN 12 mg/dL (7-20); CARBON DIOXIDE 27 mmol/L (22-30); CHLORIDE 107 mmol/L (98-107); GLUCOSE 86 mg/dL (75-110); TOTAL PROTEIN 7.4 g/dL (6.3-8.2)
[2017-06-04] MEDS ORDERED: NORMAL SALINE 1000 ML 1,000 ML IV PRN (07:12)
[2017-06-04] MEDS ORDERED: HYDROMORPHONE HCL INJ/PF 2 MG/ML AMPULE IV ONE ×2 (07:17→09:16)
[2017-06-04] MEDS ORDERED: DIPHENHYDRAMINE HCL 50 MG/ML VIAL IV ONE (07:18)
--- NOTE | 2017-06-04 07:26 | ER Document Report ---
ED General - General Chief Complaint: Sickle Cell Crisis Stated Complaint: BODY ACHES Time Seen by Provider: 06/04/17 07:12 TRAVEL OUTSIDE OF THE [place] IN LAST 30 DAYS: No - HPI Notes: Patient is a 36-year-old male with a history of sickle cell anemia who presents to the ED complaining of an acute flare presenting with generalized joint pains 1 day. Patient states that his symptoms are intermittent. Patient states that his current flare is typical of previous. He has also had a very rare dry cough x2 days. Pt states that he has otherwise not felt, 'sick.' Patient has been seen here multiple times recently for sickle cell flareups which patient states is due to weather changing. He has no other concerns or complaints at this time. Denies any headache, fever, neck pain, changes in vision/speech/ mentation/hearing, URI, sore throat, chest pain, palpitations, syncope, shortness of breath, wheeze, dyspnea, abdominal pain, nausea/vomiting/diarrhea, urinary retention, dysuria, hematuria, loss of control of bowel or bladder, numbness/tingling, saddle anesthesia, muscle paralysis/weakness, or rash. - Related Data Allergies/Adverse Reactions: famotidine [From Pepcid] Allergy (Severe, Verified 05/10/17 17:50) Anaphylaxis ketorolac tromethamine [From Toradol] Allergy (Severe, Verified 05/10/17 17:50) levofloxacin [From Levaquin] Allergy (Severe, Verified 05/10/17 17:50) meperidine HCl [From Demerol] Allergy (Severe, Verified 05/10/17 17:50) morphine [Morphine] Allergy (Severe, Verified 05/10/17 17:50) tramadol HCl [From Ultram] Allergy (Severe, Verified 05/10/17 17:50) amoxicillin [Amoxicillin] Allergy (Verified 05/10/17 17:50) fentanyl [Fentanyl] Allergy (Verified 05/10/17 17:50) latex [Latex] Allergy (Verified 05/10/17 17:50) ondansetron HCl [From Zofran] Allergy (Verified 05/10/17 17:50) Past Medical History - Social History Smoking Status: Unknown if Ever Smoked Chew tobacco use (# tins/day): No Frequency of alcohol use: None Drug Abuse: None Family History: Reviewed & Not Pertinent, Other Patient has suicidal ideation: No Patient has homicidal ideation: No - Past Medical History Cardiac Medical History: Denies: Hx Atrial Fibrillation, Hx Congestive Heart Failure, Hx Coronary Artery Disease Pulmonary Medical History: Denies: Hx Bronchitis, Hx Tuberculosis Neurological Medical History: Reports: Hx Seizures Endocrine Medical History: Denies: Hx Diabetes Mellitus Type 1 Renal/ Medical History: Denies: Hx Peritoneal Dialysis Musculoskeltal Medical History: Reports Hx Musculoskeletal Deformity - right hip avascular necrosis Psychiatric Medical History: Denies: Hx Depression Past Surgical History: Reports: Hx Appendectomy, Hx Vascular Surgery - L port placement - Immunizations Immunizations up to date: Yes Hx Diphtheria, Pertussis, Tetanus Vaccination: Yes Hx Pneumococcal Vaccination: 02/20/11 Review of Systems - Review of Systems -: Yes All other systems reviewed and negative Physical Exam - Vital signs Vitals: Temp Pulse Resp BP Pulse Ox 98.3 F 62 16 123/81 96 06/04/17 04:39 06/04/17 04:39 06/04/17 04:39 06/04/17 04:39 06/04/17 04:39 - Notes Notes: PHYSICAL EXAMINATION: GENERAL: Well-appearing, well-nourished and in no acute distress. HEAD: Atraumatic, normocephalic. EYES: Pupils equal round and reactive to light, extraocular movements intact, sclera anicteric, conjunctiva are normal. ENT: Nares patent and without discharge. oropharynx clear without exudates. No tonsilar hypertrophy or erythema. Moist mucous membranes. NECK: Normal range of motion, supple without lymphadenopathy LUNGS: Breath sounds clear to auscultation bilaterally and equal. No wheezes rales or rhonchi. HEART: Regular rate and rhythm without murmurs, rubs, gallops. ABDOMEN: Soft, nontender, nondistended abdomen. No guarding, no rebound. No masses appreciated. Normal bowel sounds present. No CVA tenderness bilaterally. Musculoskeletal: FROM to passive/active. Strength 5+/5. Extremities: No cyanosis, clubbing, or edema b/l. Peripheral pulses 2+. Capillary refill less than 3 seconds. NEUROLOGICAL: Cranial nerves grossly intact. Normal speech, normal gait. Normal sensory, motor exams PSYCH: Normal mood, normal affect. SKIN: Warm, Dry, normal turgor, no rashes or lesions noted. Course - Re-evaluation Re-evalutation: 06/04/17 09:18 Patient is an afebrile, well-hydrated, 36-year-old male who presents to the ED with an acute exacerbation of his sickle cell. Vitals are stable. PE is otherwise unremarkable. CBC, reticulocyte count, CMP/T.bili were at or better than his typical baseline. Patient is tolerating p.o. without any difficulties. Patient was given pain medications as well as fluids in the emergency department today. His chest x-ray I suspect was a possible over read with the description of "a faint possible infiltrate in the left lung base." Patient is not tachypneic, tachycardic, or hypoxic. He has no fever. Patient has not had any symptoms consistent with a respiratory illness. Patient only notes that he has a rare cough over the last couple days, but states that he will develop a cough with acute exacerbations at times. As precautionary, I will send him home with a pocket prescription for Zithromax which may he may begin with a worsened/continued cough over the next couple days. Low suspicion for any acute chest syndrome, ACS, PE, pneumothorax, pericarditis, dissection, respiratory compromise, severe dehydration, sepsis, meningitis, or other systemic emergent condition at this time. Patient is aware that his condition can change from initial presentation and he needs to monitor symptoms closely and seek medical attention for any acute changes. Recommend conservative measures for symptoms. Recheck with your PCM/dynamic balancer set up worker in 3-5 days. Return to the ED with any worsening/concerning symptoms otherwise as reviewed in discharge. Patient is in agreement. - Vital Signs Vital signs: Temp Pulse Resp BP Pulse Ox 98.3 F 62 16 123/81 96 06/04/17 04:39 06/04/17 04:39 06/04/17 04:39 06/04/17 04:39 06/04/17 04:39 - Laboratory Result Diagrams: 06/04/17 06:25 06/04/17 06:25 Laboratory results interpreted by me: 06/04/17 06/04/17 06:25 06:25 RBC 2.61 L Hgb 9.7 L Hct 27.7 L MCV 106 H MCH 37.3 H RDW 18.6 H Retic Count (auto) 6.15 H Absolute Retic 0.161 H Total Bilirubin 2.0 H Discharge - Discharge Clinical Impression: Sickle cell crisis Condition: Stable Disposition: HOME, SELF-CARE Instructions: Sickle Cell Crisis ([facility]) Additional Instructions: Maintain adequate fluid intake Take meds as directed tylenol/ibuprofen as needed over the counter cold medication as needed for symptoms Humidified air may help Wash your hands regularly Wear a mask when coughing F/u: with your PCM in 3-5 days for a recheck Return to the ED with any fever, worsening pain, chest pain, palpitations, syncope, worsening [place], neck pain/stiffness, shortness of breath, wheezing, drooling, trouble swallowing/breathing, abdominal pain, n/v/d, rash, or worsening/concerning symptoms otherwise. Prescriptions: Azithromycin [Zithromax 250 mg Tablet] 250 mg PO ASDIR PRN #6 tablet PRN Reason: Referrals: BETH STAPLETON MD [ACTIVE STAFF] - Follow up in 3-5 days
[2017-06-04 07:33] LABS: ABSOLUTE LYMPHOCYTES# (MANUAL) 1.8 10^3/uL (0.5-4.7); ABSOLUTE MONOCYTES # (MANUAL) 0.5 10^3/uL (0.1-1.4); BASOPHILS % (MANUAL) 0 % (0-2); EOSINOPHILS % (MANUAL) 3 % (0-6); LYMPHOCYTES % (MANUAL) 38 % (13-45); MONOCYTES % (MANUAL) 12 % (3-13); SEGMENTED NEUTROPHILS % (MAN) 45 % (42-78); TOTAL CELLS COUNTED 100
[2017-06-04 07:35] LABS: ANISOCYTOSIS 1+; OVALOCYTES 1+; POIKILOCYTOSIS 1+; POLYCHROMASIA 1+
[2017-06-04 07:36] LABS: PLATELET COMMENT ADEQUATE
--- NOTE | 2017-06-04 08:55 | RADIOLOGY REPORT (SQ) ---
EXAM DESCRIPTION: CHEST PA/LAT COMPLETED DATE/TIME: 06/04/2017 8:44 am REASON FOR STUDY: acute exacerbation of sickle cell COMPARISON: 11/24/2016 and 02/21/2016. EXAM PARAMETERS: NUMBER OF VIEWS: two views TECHNIQUE: Digital Frontal and Lateral radiographic views of the chest acquired. RADIATION DOSE: NA LIMITATIONS: none FINDINGS: LUNGS AND PLEURA: Prominent interstitial densities. Possible faint infiltrate in the left base. No pleural effusion or pneumothorax. No masses or pneumothorax. No pleural effusion. MEDIASTINUM AND HILAR STRUCTURES: No masses or contour abnormalities. HEART AND VASCULAR STRUCTURES: Mild cardiomegaly. No evidence for failure. BONES: No acute findings. HARDWARE: Vascular access port. OTHER: No other significant finding. IMPRESSION: PROMINENT INTERSTITIAL DENSITIES WHICH APPEAR CHRONIC. POSSIBLE FAINT INFILTRATE IN THE LEFT LUNG BASE. TECHNICAL DOCUMENTATION: JOB ID: [id number] [employer]- All Rights Reserved
[2017-06-04 09:33] VITALS: BP 115/60
== END 2017-06-04 10:50 | disposition home or self-care (01) ==
LOC: ER 04:34
DX: D57.00 Hb-SS disease with crisis, unspecified (principal); R05 Cough; Z88.8 Allergy status to other drugs, medicaments and biological substances; Z88.1 Allergy status to other antibiotic agents; Z88.5 Allergy status to narcotic agent; Z88.0 Allergy status to penicillin; Z91.040 Latex allergy status
CPT/HCPCS: 36591; 96376; 99284; 96374; 96375; 36415; 85025; 85045; 80053; 71046; J1200; J1170; J7030

== ENCOUNTER 2017-08-20 03:19 | Emergency (ER) | payer MEDICARE, MEDICAID ==
[2017-08-20] MEDS ORDERED: HYDROMORPHONE HCL INJ/PF 2 MG/ML AMPULE IV ONE ×3 (04:53→08:37)
[2017-08-20] MEDS ORDERED: NORMAL SALINE 1000 ML 1,000 ML IV ONE ×2 (04:53)
[2017-08-20] MEDS ORDERED: DIPHENHYDRAMINE HCL 50 MG/ML VIAL IV ONE ×2 (04:54→08:37)
--- NOTE | 2017-08-20 05:00 | ER Document Report ---
ED Medical Screen (RME) - General Chief Complaint: Sickle Cell Crisis Stated Complaint: PAIN ALL OVER Time Seen by Provider: 08/20/17 04:46 Notes: 36-year-old male with history of sickle cell anemia that comes emergency department for chief complaint of 2 days of worsening pain mainly in his hips and knees. He states he has "short breaths" but denies specific shortness of breath or cough/fever. He states he thinks it is from the pain. He denies nausea vomiting, abdominal pain, headache. He is followed by [facility]. TRAVEL OUTSIDE OF THE [place] IN LAST 30 DAYS: No - Related Data Allergies/Adverse Reactions: famotidine [From Pepcid] Allergy (Severe, Verified 05/10/17 17:50) Anaphylaxis ketorolac tromethamine [From Toradol] Allergy (Severe, Verified 05/10/17 17:50) levofloxacin [From Levaquin] Allergy (Severe, Verified 05/10/17 17:50) meperidine HCl [From Demerol] Allergy (Severe, Verified 05/10/17 17:50) morphine [Morphine] Allergy (Severe, Verified 05/10/17 17:50) tramadol HCl [From Ultram] Allergy (Severe, Verified 05/10/17 17:50) amoxicillin [Amoxicillin] Allergy (Verified 05/10/17 17:50) fentanyl [Fentanyl] Allergy (Verified 05/10/17 17:50) latex [Latex] Allergy (Verified 05/10/17 17:50) ondansetron HCl [From Zofran] Allergy (Verified 05/10/17 17:50) Past Medical History - Past Medical History Cardiac Medical History: Denies: Hx Atrial Fibrillation, Hx Congestive Heart Failure, Hx Coronary Artery Disease Pulmonary Medical History: Denies: Hx Bronchitis, Hx Tuberculosis Neurological Medical History: Reports: Hx Seizures Endocrine Medical History: Denies: Hx Diabetes Mellitus Type 1 Renal/ Medical History: Denies: Hx Peritoneal Dialysis Musculoskeltal Medical History: Reports Hx Musculoskeletal Deformity - right hip avascular necrosis Psychiatric Medical History: Denies: Hx Depression Past Surgical History: Reports: Hx Appendectomy, Hx Vascular Surgery - L port placement - Immunizations Immunizations up to date: Yes Hx Diphtheria, Pertussis, Tetanus Vaccination: Yes Physical Exam - Vital signs Vitals: Temp Pulse Resp BP Pulse Ox 98.6 F 78 18 136/79 H 96 08/20/17 03:28 08/20/17 03:28 08/20/17 03:28 08/20/17 03:28 08/20/17 03:28 - Respiratory Respiratory status: No respiratory distress. No: Labored, Retractions, Tachypnea Breath sounds: Normal. No: Decreased air movement, Wheezing Course - Vital Signs Vital signs: Temp Pulse Resp BP Pulse Ox 98.6 F 78 18 136/79 H 96 08/20/17 03:28 08/20/17 03:28 08/20/17 03:28 08/20/17 03:28 08/20/17 03:28
[2017-08-20 05:44] LABS: ABSOLUTE BASOPHILS # (AUTO) 0.1 10^3/uL (0.0-0.2); ABSOLUTE EOSINOPHILS # (AUTO) 0.1 10^3/uL (0.0-0.6); ABSOLUTE LYMPHOCYTES (AUTO) 1.7 10^3/uL (0.5-4.7); ABSOLUTE MONOCYTES (AUTO) 1.1 10^3/uL (0.1-1.4); ABSOLUTE NEUT (AUTO) 5.3 10^3/uL (1.7-8.2); ABSOLUTE RETICS # 0.308 10^6/uL (0.028-0.122); BASOPHILS % (AUTO) 1.3 % (0-2); EOSINOPHILS % (AUTO) 0.7 % (0-6); HEMATOCRIT 26.5 % (37.9-51.0); HEMOGLOBIN 9.3 g/dL (13.5-17.0); LYMPHOCYTES % (AUTO) 20.8 % (13-45); MEAN CORPUSCULAR HEMOGLOBIN 35.3 pg (27.0-33.4); MEAN CORPUSCULAR HGB CONC 34.9 g/dL (32.0-36.0); MEAN CORPUSCULAR VOLUME 101 fl (80-97); MONOCYTES % (AUTO) 13.5 % (3-13); PLATELET COUNT 302 10^3/uL (150-450); RED BLOOD COUNT 2.62 10^6/uL (4.35-5.55); RED CELL DISTRIBUTION WIDTH 18.4 % (11.5-14.0); RETICULOCYTE COUNT (AUTO) 11.73 % (0.66-2.85); SEGMENTED NEUTROPHILS % (AUTO) 63.7 % (42-78); TOTAL CELLS COUNTED % (AUTO) 100 %; WHITE BLOOD COUNT 8.3 10^3/uL (4.0-10.5)
[2017-08-20 05:49] LABS: ALANINE AMINOTRANSFERASE 28 U/L (21-72); ALBUMIN 3.8 g/dL (3.5-5.0); ALKALINE PHOSPHATASE 52 U/L (38-126); ANION GAP 9 (5-19); ASPARTATE AMINO TRANSFERASE 25 U/L (17-59); BILIRUBIN,DIRECT 0.3 mg/dL (0.0-0.4); BILIRUBIN,TOTAL 2.4 mg/dL (0.2-1.3); BLOOD UREA NITROGEN 10 mg/dL (7-20); CALCIUM 8.5 mg/dL (8.4-10.2); CARBON DIOXIDE 30 mmol/L (22-30); CHLORIDE 106 mmol/L (98-107); GLUCOSE 89 mg/dL (75-110); POTASSIUM 3.7 mmol/L (3.6-5.0); SODIUM 145.3 mmol/L (137-145); TOTAL PROTEIN 7.1 g/dL (6.3-8.2)
--- NOTE | 2017-08-20 06:03 | RADIOLOGY REPORT (SQ) ---
EXAM DESCRIPTION: CHEST SINGLE VIEW CLINICAL HISTORY: shortness of breath COMPARISON: 06/04/2017 FINDINGS: Single frontal view of the chest. Cardiomegaly. Diffuse bilateral interstitial and alveolar opacities. No pneumothorax or definite pleural effusion. Low lung volumes. No acute osseous abnormalities. Upper abdominal soft tissues are unremarkable. IMPRESSION: 1. Interval increase in diffuse bilateral interstitial and alveolar opacities with cardiomegaly. This could be related to pulmonary edema however bilateral pneumonic process could produce a similar appearance. Continued follow-up recommended.
[2017-08-20 06:12] LABS: POLYCHROMASIA 1+; TOXIC GRANULATION 1+
[2017-08-20 06:13] LABS: ACANTHOCYTES SLIGHT; ANISOCYTOSIS 2+; POIKILOCYTOSIS 2+; SCHISTOCYTES 1+; SICKLE RED CELLS 1+; TARGET CELLS 1+
[2017-08-20 06:14] LABS: PLATELET CLUMPS PRESENT; PLATELET COMMENT ADEQUATE; PLATELET LARGE PRESENT
--- NOTE | 2017-08-20 06:47 | ER Document Report ---
ED General - General Chief Complaint: Sickle Cell Crisis Stated Complaint: PAIN ALL OVER Time Seen by Provider: 08/20/17 04:46 Notes: 36-year-old male with history of sickle cell disease presents to the ER complaining of diffuse joint pain since Saturday. The patient's typical sickle cell pain crisis is bilateral hip pain and bilateral lower extremity pain. He denies any fever chills denies cough sore throat. Denies hematuria or dysuria complains of severe aching pain in his hips rating down his legs. Is worse with movement. This is been his typical pain attack. The patient is cared for by [facility] for his sickle cell. Patient denies any falls or trauma. Denies abdominal pain. TRAVEL OUTSIDE OF THE [place] IN LAST 30 DAYS: No - Related Data Allergies/Adverse Reactions: famotidine [From Pepcid] Allergy (Severe, Verified 05/10/17 17:50) Anaphylaxis ketorolac tromethamine [From Toradol] Allergy (Severe, Verified 05/10/17 17:50) levofloxacin [From Levaquin] Allergy (Severe, Verified 05/10/17 17:50) meperidine HCl [From Demerol] Allergy (Severe, Verified 05/10/17 17:50) morphine [Morphine] Allergy (Severe, Verified 05/10/17 17:50) tramadol HCl [From Ultram] Allergy (Severe, Verified 05/10/17 17:50) amoxicillin [Amoxicillin] Allergy (Verified 05/10/17 17:50) fentanyl [Fentanyl] Allergy (Verified 05/10/17 17:50) latex [Latex] Allergy (Verified 05/10/17 17:50) ondansetron HCl [From Zofran] Allergy (Verified 05/10/17 17:50) Past Medical History - Social History Smoking Status: Never Smoker Chew tobacco use (# tins/day): No Frequency of alcohol use: None Drug Abuse: None Family History: Reviewed & Not Pertinent, Other Patient has suicidal ideation: No Patient has homicidal ideation: No - Past Medical History Cardiac Medical History: Denies: Hx Atrial Fibrillation, Hx Congestive Heart Failure, Hx Coronary Artery Disease Pulmonary Medical History: Denies: Hx Bronchitis, Hx Tuberculosis Neurological Medical History: Reports: Hx Seizures Endocrine Medical History: Denies: Hx Diabetes Mellitus Type 1 Renal/ Medical History: Denies: Hx Peritoneal Dialysis Musculoskeltal Medical History: Reports Hx Musculoskeletal Deformity - right hip avascular necrosis Psychiatric Medical History: Denies: Hx Depression Past Surgical History: Reports: Hx Appendectomy, Hx Vascular Surgery - L port placement - Immunizations Immunizations up to date: Yes Hx Diphtheria, Pertussis, Tetanus Vaccination: Yes Hx Pneumococcal Vaccination: 02/20/11 Review of Systems - Review of Systems Cardiovascular: denies: Chest pain Respiratory: denies: Short of breath Musculoskeletal: Joint pain Skin: denies: Rash -: Yes All other systems reviewed and negative Physical Exam - Vital signs Vitals: Temp Pulse Resp BP Pulse Ox 98.6 F 78 18 136/79 H 96 08/20/17 03:28 08/20/17 03:28 08/20/17 03:28 08/20/17 03:28 08/20/17 03:28 - Notes Notes: GENERAL_APPEARANCE: well_nourished, alert, cooperative, appears uncomfortable VITALS: reviewed, see vital signs table. HEAD: no_swelling\tenderness on the head. EYES: PERRL, EOMI, conjunctiva_clear. NOSE: no_nasal_discharge. MOUTH: (-)decreased moisture. THROAT: no_tonsilar_inflammation, no_airway_obstruction. no_lymphadenopathy NECK: supple, no_neck_tenderness, (-)thyromegaly. BACK: no_back_tenderness. CHEST_WALL: no_chest_tenderness. LUNGS: no_wheezing, no_rales, no_rhonchi, (-)accessory muscle use, good air exchange bilateral. HEART: normal_rate, normal_rhythm, normal_S1, normal_S2, (-)S3, (-)S4, no_ murmur, no_rub. ABDOMEN: normal_BS, soft, no_abd_tenderness, (-)guarding, (-)rebound, no_ organomegaly, no_abd_masses. EXTREMITIES: Bilateral hip pain on range of motion testing., No redness no heat. PMS intact distal no edema no swelling. SKIN: warm, dry, good_color, no_rash. MENTAL_STATUS: speech_clear, oriented_X_3, normal_affect, responds_ appropriately to questions. NEURO: Neg Motor or Sensory Deficits on exam, CN 2-12 intact, DTR 2+ symmetric x 4, No cerbellar signs Course - Re-evaluation Re-evalutation: 08/20/17 06:46 36-year-old male history of sickle cell disease presents with a pain crisis. We will work him up check hemoglobin retake count. Look for any signs of any infection. Give the patient IV fluids oxygen and pain medicine. Will reevaluate him. 08/20/17 08:53 Patient has improved with IV fluids pain and nausea medicine. He has received several doses of pain medicine. He has pain medicine at home. The patient feels comfortable going home if he has any recurrent problems or return. There is nothing to suggest infection at this time hemoglobin is stable 9.3. - Vital Signs Vital signs: Temp Pulse Resp BP Pulse Ox 98.6 F 78 18 136/79 H 96 08/20/17 03:28 08/20/17 03:28 08/20/17 03:28 08/20/17 03:28 08/20/17 03:28 - Laboratory Result Diagrams: 08/20/17 05:15 08/20/17 05:15 Laboratory results interpreted by me: 08/20/17 08/20/17 05:15 05:15 RBC 2.62 L Hgb 9.3 L Hct 26.5 L MCV 101 H MCH 35.3 H RDW 18.4 H Monocytes % 13.5 H Retic Count (auto) 11.73 H Absolute Retic 0.308 H Sodium 145.3 H Total Bilirubin 2.4 H Discharge - Discharge Clinical Impression: Sickle cell crisis Condition: Good Disposition: HOME, SELF-CARE Instructions: Sickle Cell Crisis ([facility])
[2017-08-20] MEDS ORDERED: HEPARIN SOD (PORCINE) 1 UNIT/ML PF 3 ML SYRINGE IV ONE (09:10)
[2017-08-20 10:54] VITALS: BP 116/78
== END 2017-08-20 10:10 | disposition home or self-care (01) ==
LOC: ER 03:19
DX: D57.00 Hb-SS disease with crisis, unspecified (principal); M25.551 Pain in right hip; M25.552 Pain in left hip; M79.604 Pain in right leg; M79.605 Pain in left leg; Z88.8 Allergy status to other drugs, medicaments and biological substances; Z88.1 Allergy status to other antibiotic agents; Z88.5 Allergy status to narcotic agent; Z88.0 Allergy status to penicillin; Z91.040 Latex allergy status
CPT/HCPCS: 36591; 96376; 99284; 96361; 96374; 96375; 36415; 82962; 85025; 85045; 80053; 71045; J1200; J1170; J7030; J1642

== ENCOUNTER 2017-08-29 10:03 | Emergency (ER) | payer MEDICARE, MEDICAID ==
[2017-08-29] MEDS ORDERED: NORMAL SALINE 1000 ML 1,000 ML IV ONE (10:11)
[2017-08-29] MEDS ORDERED: DIPHENHYDRAMINE HCL 50 MG CAPSULE PO ONE (10:13)
[2017-08-29] MEDS ORDERED: HYDROMORPHONE HCL INJ/PF 2 MG/ML AMPULE IV ONE ×2 (10:13→12:11)
--- NOTE | 2017-08-29 10:15 | ER Document Report ---
ED Medical Screen (RME) - General Chief Complaint: Pain All Over Stated Complaint: BODY PAIN Time Seen by Provider: 08/29/17 10:11 Notes: Patient is a 36-year-old male, past medical history sickle cell, presents with his usual sickle cell pain crisis present in his knees and hips. He says Dilaudid and Benadryl usually help his pain. He is taking his oxycodone and methadone at home without much relief of symptoms. Denies shortness of breath or chest pain. PE: Lungs CTAB. Afebrile. I have greeted and performed a rapid initial assessment of this patient. A comprehensive ED assessment and evaluation of the patient, analysis of test results and completion of the medical decision making process will be conducted by additional ED providers. TRAVEL OUTSIDE OF THE [place] IN LAST 30 DAYS: No - Related Data Allergies/Adverse Reactions: famotidine [From Pepcid] Allergy (Severe, Verified 05/10/17 17:50) Anaphylaxis ketorolac tromethamine [From Toradol] Allergy (Severe, Verified 05/10/17 17:50) levofloxacin [From Levaquin] Allergy (Severe, Verified 05/10/17 17:50) meperidine HCl [From Demerol] Allergy (Severe, Verified 05/10/17 17:50) morphine [Morphine] Allergy (Severe, Verified 05/10/17 17:50) tramadol HCl [From Ultram] Allergy (Severe, Verified 05/10/17 17:50) amoxicillin [Amoxicillin] Allergy (Verified 05/10/17 17:50) fentanyl [Fentanyl] Allergy (Verified 05/10/17 17:50) latex [Latex] Allergy (Verified 05/10/17 17:50) ondansetron HCl [From Zofran] Allergy (Verified 05/10/17 17:50) Past Medical History - Past Medical History Cardiac Medical History: Denies: Hx Atrial Fibrillation, Hx Congestive Heart Failure, Hx Coronary Artery Disease Pulmonary Medical History: Denies: Hx Bronchitis, Hx Tuberculosis Neurological Medical History: Reports: Hx Seizures Endocrine Medical History: Denies: Hx Diabetes Mellitus Type 1 Renal/ Medical History: Denies: Hx Peritoneal Dialysis Musculoskeltal Medical History: Reports Hx Musculoskeletal Deformity - right hip avascular necrosis Psychiatric Medical History: Denies: Hx Depression Past Surgical History: Reports: Hx Appendectomy, Hx Vascular Surgery - L port placement - Immunizations Immunizations up to date: Yes Hx Diphtheria, Pertussis, Tetanus Vaccination: Yes Physical Exam - Vital signs Vitals: Temp Pulse Resp BP Pulse Ox 98.0 F 55 L 18 124/76 96 08/29/17 10:10 08/29/17 10:10 08/29/17 10:10 08/29/17 10:10 08/29/17 10:10 Course - Vital Signs Vital signs: Temp Pulse Resp BP Pulse Ox 98.0 F 55 L 18 124/76 96 08/29/17 10:10 08/29/17 10:10 08/29/17 10:10 08/29/17 10:10 08/29/17 10:10
[2017-08-29 10:46] LABS: ABSOLUTE RETICS # 0.285 10^6/uL (0.028-0.122); HEMATOCRIT 27.7 % (37.9-51.0); HEMOGLOBIN 9.7 g/dL (13.5-17.0); MEAN CORPUSCULAR HEMOGLOBIN 35.1 pg (27.0-33.4); MEAN CORPUSCULAR HGB CONC 35.2 g/dL (32.0-36.0); MEAN CORPUSCULAR VOLUME 100 fl (80-97); PLATELET COUNT 341 10^3/uL (150-450); RED BLOOD COUNT 2.77 10^6/uL (4.35-5.55); RED CELL DISTRIBUTION WIDTH 21.7 % (11.5-14.0); WHITE BLOOD COUNT 4.8 10^3/uL (4.0-10.5)
[2017-08-29 10:57] LABS: ALANINE AMINOTRANSFERASE 25 U/L (21-72); ALBUMIN 3.9 g/dL (3.5-5.0); ALKALINE PHOSPHATASE 62 U/L (38-126); ANION GAP 12 (5-19); ASPARTATE AMINO TRANSFERASE 22 U/L (17-59); BILIRUBIN,DIRECT 0.3 mg/dL (0.0-0.4); BILIRUBIN,TOTAL 2.2 mg/dL (0.2-1.3); BLOOD UREA NITROGEN 8 mg/dL (7-20); CALCIUM 8.5 mg/dL (8.4-10.2); CARBON DIOXIDE 25 mmol/L (22-30); CHLORIDE 110 mmol/L (98-107); GLUCOSE 89 mg/dL (75-110); POTASSIUM 3.6 mmol/L (3.6-5.0); SODIUM 147.2 mmol/L (137-145); TOTAL PROTEIN 7.4 g/dL (6.3-8.2)
--- NOTE | 2017-08-29 11:28 | ER Document Report ---
ED General - General Chief Complaint: Pain All Over Stated Complaint: BODY PAIN Time Seen by Provider: 08/29/17 10:11 Mode of Arrival: Ambulatory Information source: [facility] Records Notes: 36-year-old male history of SS sickle cell disease presents with complaints of generalized body aches. Patient admits to a history of avascular necrosis of the hips. Notes that the pain is chronic but fluctuates. Patient denies any fevers or chills denies any nausea vomiting or diarrhea. Patient requests Dilaudid and Benadryl IV TRAVEL OUTSIDE OF THE [place] IN LAST 30 DAYS: No - HPI Onset: Yesterday Onset/Duration: Sudden Quality of pain: Achy Severity: Moderate Pain Level: 2 Associated symptoms: Body/muscle aches Exacerbated by: Movement Relieved by: Denies Similar symptoms previously: Yes Recently seen / treated by doctor: Yes - Related Data Allergies/Adverse Reactions: famotidine [From Pepcid] Allergy (Severe, Verified 05/10/17 17:50) Anaphylaxis ketorolac tromethamine [From Toradol] Allergy (Severe, Verified 05/10/17 17:50) levofloxacin [From Levaquin] Allergy (Severe, Verified 05/10/17 17:50) meperidine HCl [From Demerol] Allergy (Severe, Verified 05/10/17 17:50) morphine [Morphine] Allergy (Severe, Verified 05/10/17 17:50) tramadol HCl [From Ultram] Allergy (Severe, Verified 05/10/17 17:50) amoxicillin [Amoxicillin] Allergy (Verified 05/10/17 17:50) fentanyl [Fentanyl] Allergy (Verified 05/10/17 17:50) latex [Latex] Allergy (Verified 05/10/17 17:50) ondansetron HCl [From Zofran] Allergy (Verified 05/10/17 17:50) Past Medical History - Social History Smoking Status: Never Smoker Cigarette use (# per day): No Chew tobacco use (# tins/day): No Smoking Education Provided: No Frequency of alcohol use: None Drug Abuse: None Family History: Reviewed & Not Pertinent, Other Patient has suicidal ideation: No Patient has homicidal ideation: No - Past Medical History Cardiac Medical History: Denies: Hx Atrial Fibrillation, Hx Congestive Heart Failure, Hx Coronary Artery Disease Pulmonary Medical History: Denies: Hx Bronchitis, Hx Tuberculosis Neurological Medical History: Reports: Hx Seizures Endocrine Medical History: Denies: Hx Diabetes Mellitus Type 1 Renal/ Medical History: Denies: Hx Peritoneal Dialysis Musculoskeltal Medical History: Reports Hx Musculoskeletal Deformity - right hip avascular necrosis Psychiatric Medical History: Denies: Hx Depression Past Surgical History: Reports: Hx Appendectomy, Hx Vascular Surgery - L port placement - Immunizations Immunizations up to date: Yes Hx Diphtheria, Pertussis, Tetanus Vaccination: Yes Hx Pneumococcal Vaccination: 02/20/11 Review of Systems - Review of Systems Notes: REVIEW OF SYSTEMS: CONSTITUTIONAL : Denies fever, chills, or sweats. Denies recent illness. EENT: Denies eye, ear, throat, or mouth pain or symptoms. Denies nasal or sinus congestion or discharge. Denies throat, tongue, or mouth swelling or difficulty swallowing. CARDIOVASCULAR: Denies chest pain. Denies palpitations or racing or irregular heart beat. Denies ankle edema. RESPIRATORY: Denies cough, cold, or chest congestion. Denies shortness of breath, difficulty breathing, or wheezing. GASTROINTESTINAL: Denies abdominal pain or distention. Denies nausea, vomiting , or diarrhea. Denies blood in vomitus, stools, or per rectum. Denies black, tarry stools. Denies constipation. GENITOURINARY: Denies difficulty urinating, painful urination, burning, frequency, blood in urine, or discharge. MUSCULOSKELETAL: Admits to hip pain generalized body aches SKIN: Denies rash, lesions or sores. HEMATOLOGIC : Denies easy bruising or bleeding. LYMPHATIC: Denies swollen, enlarged glands. NEUROLOGICAL: Denies confusion or altered mental status. Denies passing out or loss of consciousness. Denies dizziness or lightheadedness. Denies headache. Denies weakness or paralysis or loss of use of either side. Denies problems with gait or speech. Denies sensory loss, numbness, or tingling. Denies seizures. PSYCHIATRIC: Denies anxiety or stress. Denies depression, suicidal ideation, or homicidal ideation. ALL OTHER SYSTEMS REVIEWED AND NEGATIVE. Dictation was performed using [employer] recognition software PHYSICAL EXAMINATION: GENERAL: Well-appearing, well-nourished and in no acute distress. Resting comfortably watching television HEAD: Atraumatic, normocephalic. EYES: Pupils equal round and reactive to light, extraocular movements intact, sclera anicteric, conjunctiva are normal. ENT: Nares patent, oropharynx clear without exudates. Moist mucous membranes. NECK: Normal range of motion, supple without lymphadenopathy LUNGS: Breath sounds clear to auscultation bilaterally and equal. No wheezes rales or rhonchi. HEART: Regular rate and rhythm without murmurs ABDOMEN: Soft, nontender, nondistended abdomen. No guarding, no rebound. No masses appreciated. Musculoskeletal: Normal range of motion, no pitting or edema. No cyanosis. NEUROLOGICAL: Cranial nerves grossly intact. Normal speech, normal gait. Normal sensory, motor exams PSYCH: Normal mood, normal affect. SKIN: Warm, Dry, normal turgor, no rashes or lesions noted. Physical Exam - Vital signs Vitals: Temp Pulse Resp BP Pulse Ox 98.0 F 55 L 18 124/76 96 08/29/17 10:10 08/29/17 10:10 08/29/17 10:10 08/29/17 10:10 08/29/17 10:10 Course - Re-evaluation Re-evalutation: 08/29/17 15:16 Patient's presentation is most consistent with chronic pain secondary to his sickle cell disease, reticulocyte count is less now than it was approximately a week ago when he was last here. Patient was given pain control IV fluids Benadryl and his symptoms improved. He was instructed to follow-up with his primary care physician for further evaluation and care After performing a Medical Screening Examination, I estimate there is LOW risk for ACUTE CORONARY SYNDROME, PULMONARY EMBOLI, RESPIRATORY FAILURE, SEPSIS OR MENINGITIS, thus I consider the discharge disposition reasonable. I have reevaluated this patient multiple times and no significant life threatening changes are noted. The patient and I have discussed the diagnosis and risks, and we agree with discharging home with close follow-up. We also discussed returning to the Emergency Department immediately if new or worsening symptoms occur. We have discussed the symptoms which are most concerning (e.g., changing or worsening pain, trouble swallowing or breathing, neck stiffness, fever) that necessitate immediate return. - Vital Signs Vital signs: Temp Pulse Resp BP Pulse Ox 98.7 F 63 18 133/76 H 99 08/29/17 14:09 08/29/17 14:09 08/29/17 14:08/29/17 14:08/29/17 14:09 - Laboratory Result Diagrams: 08/29/17 10:30 08/29/17 10:30 Laboratory results interpreted by me: 08/29/17 08/29/17 10:30 10:30 RBC 2.77 L Hgb 9.7 L Hct 27.7 L MCV 100 H MCH 35.1 H RDW 21.7 H Seg Neuts % (Manual) 37 L Lymphocytes % (Manual) 49 H Retic Count (auto) 10.30 H Absolute Retic 0.285 H Sodium 147.2 H Chloride 110 H Total Bilirubin 2.2 H Discharge - Discharge Clinical Impression: Sickle cell crisis, Opiate dependence, continuous Joint pain Qualifiers: Joint pain location: unspecified Qualified Code(s): M25.50 - Pain in unspecified joint Condition: Stable Disposition: HOME, SELF-CARE Instructions: Sickle Cell Crisis ([facility]) Additional Instructions: Follow up with your physician tomorrow for further care or return to the ED IMMEDIATELY if symptoms worsen or new concerns occur. If you cannot afford to follow up with your primary care physician a list of low cost clinics have been provided at the end of your discharge papers as well.
[2017-08-29 11:30] LABS: ABSOLUTE LYMPHOCYTES# (MANUAL) 2.4 10^3/uL (0.5-4.7); ABSOLUTE MONOCYTES # (MANUAL) 0.6 10^3/uL (0.1-1.4); ABSOLUTE NEUTROPHILS# (MANUAL) 1.8 10^3/uL (1.7-8.2); BASOPHILS % (MANUAL) 1 % (0-2); EOSINOPHILS % (MANUAL) 0 % (0-6); LYMPHOCYTES % (MANUAL) 49 % (13-45); MONOCYTES % (MANUAL) 12 % (3-13); NUCLEATED RED BLOOD CELLS 10 /100 WBC (0); SEGMENTED NEUTROPHILS % (MAN) 37 % (42-78); TOTAL CELLS COUNTED 100
[2017-08-29 11:31] LABS: ANISOCYTOSIS SLIGHT; POIKILOCYTOSIS 3+; POLYCHROMASIA 2+; SCHISTOCYTES 1+; SICKLE RED CELLS 2+; TARGET CELLS SLIGHT
[2017-08-29 11:32] LABS: HOWELL-JOLLY BODIES PRESENT; PLATELET CLUMPS PRESENT
[2017-08-29] MEDS ORDERED: DIPHENHYDRAMINE HCL 50 MG/ML VIAL IM ONE (12:11)
[2017-08-29 14:26] VITALS: BP 133/76
== END 2017-08-29 15:48 | disposition home or self-care (01) ==
LOC: ER 10:03
DX: D57.00 Hb-SS disease with crisis, unspecified (principal); F11.20 Opioid dependence, uncomplicated; M25.50 Pain in unspecified joint; Z91.040 Latex allergy status; Z88.6 Allergy status to analgesic agent; Z88.0 Allergy status to penicillin
CPT/HCPCS: 36591; 96376; 99284; 96372; 96361; 96374; 36415; 85025; 85045; 80053; A9270; J1200; J1170; J7030

== ENCOUNTER 2017-09-28 16:06 | Emergency (ER) | payer MEDICARE, MEDICAID ==
--- NOTE | 2017-09-28 17:03 | ER Document Report ---
ED Medical Screen (RME) - General Chief Complaint: Sickle Cell Crisis Stated Complaint: BODY PAIN Time Seen by Provider: 09/28/17 17:00 Mode of Arrival: Ambulatory Information source: Patient Notes: This is a 36-year-old man with a history of sickle cell disease who presents to the emergency room with diffuse joint pain typical of his sickle cell pain which started this morning while he was at work (he works in a [employer]). He denies any fever, nausea, vomiting or recent illnesses. He is followed by [facility] hematology (Dr. Aleman). I have greeted and performed a rapid initial assessment of this patient. A comprehensive ED assessment and evaluation of the patient, analysis of test results and completion of medical decision making process we will be contacted by additional ED providers. TRAVEL OUTSIDE OF THE [place] IN LAST 30 DAYS: No - Related Data Allergies/Adverse Reactions: famotidine [From Pepcid] Allergy (Severe, Verified 09/28/17 16:07) Anaphylaxis ketorolac tromethamine [From Toradol] Allergy (Severe, Verified 09/28/17 16:07) levofloxacin [From Levaquin] Allergy (Severe, Verified 09/28/17 16:07) meperidine HCl [From Demerol] Allergy (Severe, Verified 09/28/17 16:07) morphine [Morphine] Allergy (Severe, Verified 09/28/17 16:07) tramadol HCl [From Ultram] Allergy (Severe, Verified 09/28/17 16:07) amoxicillin [Amoxicillin] Allergy (Verified 09/28/17 16:07) fentanyl [Fentanyl] Allergy (Verified 09/28/17 16:07) latex [Latex] Allergy (Verified 09/28/17 16:07) ondansetron HCl [From Zofran] Allergy (Verified 09/28/17 16:07) Past Medical History - Past Medical History Cardiac Medical History: Denies: Hx Atrial Fibrillation, Hx Congestive Heart Failure, Hx Coronary Artery Disease Pulmonary Medical History: Denies: Hx Bronchitis, Hx Tuberculosis Neurological Medical History: Reports: Hx Seizures Endocrine Medical History: Denies: Hx Diabetes Mellitus Type 1 Renal/ Medical History: Denies: Hx Peritoneal Dialysis Musculoskeltal Medical History: Reports Hx Musculoskeletal Deformity - right hip avascular necrosis Psychiatric Medical History: Denies: Hx Depression Past Surgical History: Reports: Hx Appendectomy, Hx Vascular Surgery - L port placement - Immunizations Immunizations up to date: Yes Hx Diphtheria, Pertussis, Tetanus Vaccination: Yes Physical Exam - Vital signs Vitals: Temp Pulse Resp BP Pulse Ox 98.6 F 60 18 116/61 94 09/28/17 16:14 09/28/17 16:14 09/28/17 16:14 09/28/17 16:14 09/28/17 16:14 Course - Vital Signs Vital signs: Temp Pulse Resp BP Pulse Ox 98.6 F 60 18 116/61 94 09/28/17 16:14 09/28/17 16:14 09/28/17 16:14 09/28/17 16:14 09/28/17 16:14
[2017-09-28 17:26] LABS: APPEARANCE,URINE CLEAR; BILIRUBIN,URINE NEGATIVE (NEGATIVE); COLOR,URINE YELLOW; GLUCOSE, URINE NEGATIVE (NEGATIVE); KETONES,URINE NEGATIVE (NEGATIVE); LEUKOCYTE ESTERASE,URINE NEGATIVE (NEGATIVE); NITRITE,URINE NEGATIVE (NEGATIVE); PROTEIN,URINE NEGATIVE (NEGATIVE); URINE SPECIFIC GRAVITY 1.013; UROBILINOGEN,URINE NEGATIVE mg/dL (<2.0)
[2017-09-28] MEDS ORDERED: HYDROMORPHONE HCL INJ/PF 2 MG/ML AMPULE IV ONE ×3 (17:32→18:45)
[2017-09-28] MEDS ORDERED: DIPHENHYDRAMINE HCL 50 MG/ML VIAL IV ONE (17:32)
[2017-09-28] MEDS ORDERED: NORMAL SALINE 1000 ML 1,000 ML IV ONE (17:34)
--- NOTE | 2017-09-28 17:36 | ER Document Report ---
ED General - General Chief Complaint: Sickle Cell Crisis Stated Complaint: BODY PAIN Time Seen by Provider: 09/28/17 17:00 Mode of Arrival: Ambulatory TRAVEL OUTSIDE OF THE [place] IN LAST 30 DAYS: No - HPI Notes: 36-year-old male with a history of sickle cell crisis presents to the ED with complaints of generalized body aches while he was at work. Patient admits to history of avascular necrosis of the hips. Patient denies any trauma. Has been trying to stay hydrated. No set pain is chronic but fluctuates, denies any fevers or chills, nausea vomiting or diarrhea. Patient does request Dilaudid and Benadryl IV which usually helps with sickle cell crisis. Decreased eating and drinking normally issues. - Related Data Allergies/Adverse Reactions: famotidine [From Pepcid] Allergy (Severe, Verified 09/28/17 16:07) Anaphylaxis ketorolac tromethamine [From Toradol] Allergy (Severe, Verified 09/28/17 16:07) levofloxacin [From Levaquin] Allergy (Severe, Verified 09/28/17 16:07) meperidine HCl [From Demerol] Allergy (Severe, Verified 09/28/17 16:07) morphine [Morphine] Allergy (Severe, Verified 09/28/17 16:07) tramadol HCl [From Ultram] Allergy (Severe, Verified 09/28/17 16:07) amoxicillin [Amoxicillin] Allergy (Verified 09/28/17 16:07) fentanyl [Fentanyl] Allergy (Verified 09/28/17 16:07) latex [Latex] Allergy (Verified 09/28/17 16:07) ondansetron HCl [From Zofran] Allergy (Verified 09/28/17 16:07) Past Medical History - General Information source: Patient - Social History Smoking Status: Never Smoker Chew tobacco use (# tins/day): No Frequency of alcohol use: None Drug Abuse: None Family History: Reviewed & Not Pertinent, Other Patient has suicidal ideation: No Patient has homicidal ideation: No - Past Medical History Cardiac Medical History: Denies: Hx Atrial Fibrillation, Hx Congestive Heart Failure, Hx Coronary Artery Disease Pulmonary Medical History: Denies: Hx Bronchitis, Hx Tuberculosis Neurological Medical History: Reports: Hx Seizures Endocrine Medical History: Denies: Hx Diabetes Mellitus Type 1 Renal/ Medical History: Denies: Hx Peritoneal Dialysis Musculoskeltal Medical History: Reports Hx Musculoskeletal Deformity - right hip avascular necrosis Psychiatric Medical History: Denies: Hx Depression Past Surgical History: Reports: Hx Appendectomy, Hx Vascular Surgery - L port placement - Immunizations Immunizations up to date: Yes Hx Diphtheria, Pertussis, Tetanus Vaccination: Yes Hx Pneumococcal Vaccination: 02/20/11 Review of Systems - Review of Systems Constitutional: See HPI EENT: No symptoms reported Cardiovascular: No symptoms reported Respiratory: No symptoms reported Gastrointestinal: No symptoms reported Genitourinary: No symptoms reported Male Genitourinary: No symptoms reported Musculoskeletal: No symptoms reported Skin: No symptoms reported Hematologic/Lymphatic: No symptoms reported Neurological/Psychological: See HPI Physical Exam - Vital signs Vitals: Temp Pulse Resp BP Pulse Ox 98.6 F 60 18 116/61 94 09/28/17 16:14 09/28/17 16:14 09/28/17 16:14 09/28/17 16:14 09/28/17 16:14 - Notes Notes: PHYSICAL EXAMINATION: GENERAL: Well-appearing, well-nourished and in no acute distress. HEAD: Atraumatic, normocephalic. EYES: Pupils equal round and reactive to light, extraocular movements intact, sclera anicteric, conjunctiva are normal. ENT: Nares patent, oropharynx clear without exudates. Moist mucous membranes. NECK: Normal range of motion, supple without lymphadenopathy LUNGS: Breath sounds clear to auscultation bilaterally and equal. No wheezes rales or rhonchi. HEART: Regular rate and rhythm without murmurs ABDOMEN: Soft, nontender, nondistended abdomen. No guarding, no rebound. No masses appreciated. Musculoskeletal: Normal range of motion, no pitting or edema. No cyanosis. NEUROLOGICAL: Cranial nerves grossly intact. Normal speech, normal gait. Normal sensory, motor exams PSYCH: Normal mood, normal affect. SKIN: Warm, Dry, normal turgor, no rashes or lesions noted. Course - Re-evaluation Re-evalutation: 09/28/17 18:03 36 afebrile, vitals stable and in no distress presents for evaluation for sickle cell crisis. Patient given IV hydration, IV pain control and Benadryl. reticulocyte count lower than what it was 1 month ago when pt was evaluated for same thing. Patient states he is feeling much better after IV hydration, pain control and IV Benadryl. After performing a Medical Screening Examination, I estimate there is LOW risk for RUPTURED ESOPHAGUS, PNEUMOTHORAX, PULMONARY EMBOLISM, ACUTE CORONARY SYNDROME, OR THORACIC AORTIC DISSECTION, thus I consider the discharge disposition reasonable. I have reevaluated this patient multiple times and no significant life threatening changes are noted. The patient and I have discussed the diagnosis and risks, and we agree with discharging home with close follow-up. We also discussed returning to the Emergency Department immediately if new or worsening symptoms occur. We have discussed the symptoms which are most concerning (e.g., bloody sputum, worsening pain or shortness of breath) that necessitate immediate return. I have reevaluated this patient multiple times and no significant life threatening changes, no signs of toxicity, sepsis or peritonitis are noted. The patient and I have discussed the diagnosis and risks, and we agree with discharging home and close follow-up. We also discussed returning to the Emergency Department immediately if new or worsening symptoms occur with the understanding that symptoms and presentations can change. At this time will discharge with return precautions and follow-up recommendations. Verbal discharge instructions given a the bedside and opportunity for questions given. We have discussed the symptoms which are most concerning (e.g., chest pain, fever, sob, changing or worsening pain) that necessitate immediate return. Medication warnings reviewed. All questions and concerns answered by this provider. Patient is in agreement with this plan and has verbalized understanding of return precautions and the need for primary care follow-up in the next 24-72 hours. Patient verbalized understanding of plan of care and agree with plan of care. - Vital Signs Vital signs: Temp Pulse Resp BP Pulse Ox 98.6 F 60 21 H 122/74 100 09/28/17 16:14 09/28/17 16:14 09/28/17 17:14 09/28/17 17:14 09/28/17 17:14 - Laboratory Result Diagrams: 09/28/17 17:30 09/28/17 17:30 Laboratory results interpreted by me: 09/28/17 09/28/17 17:30 17:30 RBC 2.63 L Hgb 9.6 L Hct 27.0 L MCV 103 H MCH 36.6 H RDW 19.4 H Retic Count (auto) 8.00 H Absolute Retic 0.210 H Total Bilirubin 2.2 H Discharge - Discharge Clinical Impression: Sickle cell crisis Condition: Stable Disposition: HOME, SELF-CARE Instructions: Sickle Cell Crisis ([facility]) Additional Instructions: Patient presentation most consistent with chronic pain secondary to sickle cell disease, reticulocyte less than it was approximately 1 month ago room. Patient was given IV fluids, Benadryl, pain control and his symptoms improved. Patient instructed to follow-up with primary care physician for further evaluation and management of his sickle cell disease. After performing a Medical Screening Examination, I estimate there is LOW risk for RUPTURED ESOPHAGUS, PNEUMOTHORAX, PULMONARY EMBOLISM, ACUTE CORONARY SYNDROME, OR THORACIC AORTIC DISSECTION, thus I consider the discharge disposition reasonable. I have reevaluated this patient multiple times and no significant life threatening changes are noted. The patient and I have discussed the diagnosis and risks, and we agree with discharging home with close follow-up. We also discussed returning to the Emergency Department immediately if new or worsening symptoms occur. We have discussed the symptoms which are most concerning (e.g., bloody sputum, worsening pain or shortness of breath) that necessitate immediate return. Referrals: JEANETTE RADER DO [NO LOCAL MD] - Follow up as needed
[2017-09-28 18:02] LABS: ABSOLUTE BASOPHILS # (AUTO) 0.1 10^3/uL (0.0-0.2); ABSOLUTE EOSINOPHILS # (AUTO) 0.1 10^3/uL (0.0-0.6); ABSOLUTE LYMPHOCYTES (AUTO) 2.5 10^3/uL (0.5-4.7); ABSOLUTE MONOCYTES (AUTO) 0.6 10^3/uL (0.1-1.4); ABSOLUTE NEUT (AUTO) 3.1 10^3/uL (1.7-8.2); BASOPHILS % (AUTO) 1.5 % (0-2); HEMOGLOBIN 9.6 g/dL (13.5-17.0); LYMPHOCYTES % (AUTO) 39.5 % (13-45); MEAN CORPUSCULAR HEMOGLOBIN 36.6 pg (27.0-33.4); MEAN CORPUSCULAR HGB CONC 35.5 g/dL (32.0-36.0); MEAN CORPUSCULAR VOLUME 103 fl (80-97); MONOCYTES % (AUTO) 9.9 % (3-13); PLATELET COUNT 254 10^3/uL (150-450); RED BLOOD COUNT 2.63 10^6/uL (4.35-5.55); RED CELL DISTRIBUTION WIDTH 19.4 % (11.5-14.0); SEGMENTED NEUTROPHILS % (AUTO) 48.1 % (42-78); TOTAL CELLS COUNTED % (AUTO) 100 %; WHITE BLOOD COUNT 6.4 10^3/uL (4.0-10.5)
[2017-09-28 18:09] LABS: ALANINE AMINOTRANSFERASE 22 U/L (21-72); ALBUMIN 4.2 g/dL (3.5-5.0); ALKALINE PHOSPHATASE 60 U/L (38-126); ANION GAP 11 (5-19); ASPARTATE AMINO TRANSFERASE 32 U/L (17-59); BILIRUBIN,DIRECT 0.3 mg/dL (0.0-0.4); BILIRUBIN,TOTAL 2.2 mg/dL (0.2-1.3); BLOOD UREA NITROGEN 13 mg/dL (7-20); CARBON DIOXIDE 28 mmol/L (22-30); CHLORIDE 105 mmol/L (98-107); GLUCOSE 92 mg/dL (75-110); POTASSIUM 4.1 mmol/L (3.6-5.0); SODIUM 144.1 mmol/L (137-145); TOTAL PROTEIN 7.6 g/dL (6.3-8.2)
[2017-09-28 18:35] LABS: ANISOCYTOSIS 2+; OVALOCYTES 2+; PLATELET COMMENT ADEQUATE; POIKILOCYTOSIS 2+; POLYCHROMASIA 1+; SICKLE RED CELLS SLIGHT; TARGET CELLS 1+
--- NOTE | 2017-09-28 19:04 | RADIOLOGY REPORT (SQ) ---
EXAM DESCRIPTION: CHEST 2 VIEWS COMPLETED DATE/TIME: 09/28/2017 6:36 pm REASON FOR STUDY: sickle cell crisis COMPARISON: 06/04/2017. 11/24/2016. EXAM PARAMETERS: NUMBER OF VIEWS: two views TECHNIQUE: Digital Frontal and Lateral radiographic views of the chest acquired. RADIATION DOSE: NA LIMITATIONS: none FINDINGS: LUNGS AND PLEURA: Bilateral pulmonary perihilar interstitial infiltrates prominent in base s unchanged from prior study 11/24/2016. MEDIASTINUM AND HILAR STRUCTURES: No masses or contour abnormalities. HEART AND VASCULAR STRUCTURES: Cardiomegaly. The pulmonary vasculature is prominent. BONES: No acute findings. HARDWARE: Port-A-Cath tip overlying SVC. OTHER: Chest leads in place. IMPRESSION: Cardiomegaly with mild pulmonary vascular congestion. Chronic bibasilar pulmonary inter stitial fibrosis. TECHNICAL DOCUMENTATION: JOB ID: [id number] 2010 [employer]- All Rights Reserved Reading location - IP/workstation name: [email or web address]
[2017-09-28 19:49] VITALS: BP 130/87
== END 2017-09-28 19:49 | disposition home or self-care (01) ==
LOC: ER 16:06
DX: D57.00 Hb-SS disease with crisis, unspecified (principal); R52 Pain, unspecified; Z88.8 Allergy status to other drugs, medicaments and biological substances; Z88.5 Allergy status to narcotic agent; Z88.0 Allergy status to penicillin; Z91.040 Latex allergy status; Z88.1 Allergy status to other antibiotic agents
CPT/HCPCS: 36591; 96376; 99284; 96361; 96374; 96375; 36415; 85025; 85045; 80053; 81001; 71046; J1200; J1170; J7030

== ENCOUNTER 2017-10-17 09:31 | Emergency (ER) | payer MEDICARE, MEDICAID ==
[2017-10-17] MEDS ORDERED: NORMAL SALINE 1000 ML 1,000 ML IV ONE ×2 (09:53→11:30)
[2017-10-17] MEDS ORDERED: DILTIAZEM HCL INJ 25 MG/5 ML VIAL IV ONE (10:00)
[2017-10-17] MEDS ORDERED: HYDROMORPHONE HCL INJ/PF 2 MG/ML AMPULE IV ONE ×2 (10:01→11:31)
--- NOTE | 2017-10-17 10:03 | ER Document Report ---
ED Medical Screen (RME) - General Chief Complaint: Sickle Cell Crisis Stated Complaint: BODY PAIN Time Seen by Provider: 10/17/17 09:59 Notes: RAPID MEDICAL EVALUATION DISCLOSURE I have seen this patient as part of a Rapid Medical Evaluation and, if applicable, placed any initially appropriate orders. The patient will be seen and fully evaluated, including a full history and physical exam, by a provider ( in Main ED or Fast Track) when a room becomes available. 36-year-old male PMH sickle cell here with complaints of pain crisis that started approximately 7 hours ago. He complains of generalized body aches and joint pains as well as left-sided chest pain. No cough or shortness of breath but states it hurts the left side of his chest when he breathes in. He has been taking his hydroxyurea folic acid and ibuprofen oxycodone with minimal relief. He does not know what triggered the pain crisis today. EXAM CTAB RRR TRAVEL OUTSIDE OF THE [place] IN LAST 30 DAYS: No - Related Data Allergies/Adverse Reactions: famotidine [From Pepcid] Allergy (Severe, Verified 10/17/17 09:33) Anaphylaxis ketorolac tromethamine [From Toradol] Allergy (Severe, Verified 10/17/17 09:33) levofloxacin [From Levaquin] Allergy (Severe, Verified 10/17/17 09:33) meperidine HCl [From Demerol] Allergy (Severe, Verified 10/17/17 09:33) morphine [Morphine] Allergy (Severe, Verified 10/17/17 09:33) tramadol HCl [From Ultram] Allergy (Severe, Verified 10/17/17 09:33) amoxicillin [Amoxicillin] Allergy (Verified 10/17/17 09:33) fentanyl [Fentanyl] Allergy (Verified 10/17/17 09:33) latex [Latex] Allergy (Verified 10/17/17 09:33) ondansetron HCl [From Zofran] Allergy (Verified 10/17/17 09:33) Past Medical History - Social History Chew tobacco use (# tins/day): No Frequency of alcohol use: None Drug Abuse: None - Past Medical History Cardiac Medical History: Denies: Hx Atrial Fibrillation, Hx Congestive Heart Failure, Hx Coronary Artery Disease Pulmonary Medical History: Denies: Hx Bronchitis, Hx Tuberculosis Neurological Medical History: Reports: Hx Seizures Endocrine Medical History: Denies: Hx Diabetes Mellitus Type 1 Renal/ Medical History: Denies: Hx Peritoneal Dialysis Musculoskeltal Medical History: Reports Hx Musculoskeletal Deformity - right hip avascular necrosis Psychiatric Medical History: Denies: Hx Depression Past Surgical History: Reports: Hx Appendectomy, Hx Vascular Surgery - L port placement - Immunizations Immunizations up to date: Yes Hx Diphtheria, Pertussis, Tetanus Vaccination: Yes Physical Exam - Vital signs Vitals: Temp Pulse Resp BP Pulse Ox 97.9 F 57 L 16 114/76 95 10/17/17 09:36 10/17/17 09:36 10/17/17 09:36 10/17/17 09:36 10/17/17 09:36 Course - Vital Signs Vital signs: Temp Pulse Resp BP Pulse Ox 97.9 F 57 L 16 114/76 95 10/17/17 09:36 10/17/17 09:36 10/17/17 09:36 10/17/17 09:36 10/17/17 09:36
[2017-10-17 10:40] LABS: HEMATOCRIT 26.2 % (37.9-51.0); HEMOGLOBIN 9.3 g/dL (13.5-17.0); MEAN CORPUSCULAR HEMOGLOBIN 36.2 pg (27.0-33.4); MEAN CORPUSCULAR HGB CONC 35.3 g/dL (32.0-36.0); MEAN CORPUSCULAR VOLUME 103 fl (80-97); PLATELET COUNT 236 10^3/uL (150-450); RED BLOOD COUNT 2.56 10^6/uL (4.35-5.55); RED CELL DISTRIBUTION WIDTH 19.7 % (11.5-14.0); RETICULOCYTE COUNT (AUTO) 6.64 % (0.66-2.85); WHITE BLOOD COUNT 5.7 10^3/uL (4.0-10.5)
[2017-10-17] MEDS ORDERED: DIPHENHYDRAMINE HCL 50 MG CAPSULE PO ONE (10:44)
[2017-10-17 10:59] LABS: ALANINE AMINOTRANSFERASE 21 U/L (21-72); ALBUMIN 3.7 g/dL (3.5-5.0); ALKALINE PHOSPHATASE 56 U/L (38-126); ANION GAP 9 (5-19); ASPARTATE AMINO TRANSFERASE 29 U/L (17-59); BILIRUBIN,DIRECT 0.2 mg/dL (0.0-0.4); BILIRUBIN,TOTAL 2.4 mg/dL (0.2-1.3); BLOOD UREA NITROGEN 11 mg/dL (7-20); CALCIUM 7.9 mg/dL (8.4-10.2); CARBON DIOXIDE 26 mmol/L (22-30); CHLORIDE 108 mmol/L (98-107); GLUCOSE 80 mg/dL (75-110); POTASSIUM 4.1 mmol/L (3.6-5.0); SODIUM 142.5 mmol/L (137-145)
--- NOTE | 2017-10-17 10:59 | RADIOLOGY REPORT (SQ) ---
EXAM DESCRIPTION: CHEST 2 VIEWS COMPLETED DATE/TIME: 10/17/2017 10:44 am REASON FOR STUDY: Sickle cell, L sided CP COMPARISON: 09/28/2017 EXAM PARAMETERS: NUMBER OF VIEWS: two views TECHNIQUE: Digital Frontal and Lateral radiographic views of the chest acquired. RADIATION DOSE: NA LIMITATIONS: none FINDINGS: LUNGS AND PLEURA: Chronic scarring in the lung bases. No opacities, masses or pneumothora x. No pleural effusion. MEDIASTINUM AND HILAR STRUCTURES: No masses or contour abnormalities. HEART AND VASCULAR STRUCTURES: Mild cardiomegaly. Mild vascular congestion, improved. BONES: No acute findings. HARDWARE: Left jugular Port-A-Cath with tip in superior vena cava. OTHER: No other significant finding. IMPRESSION: 1. Mild cardiomegaly and mild vascular congestion. 2. Chronic scarring in the lung bases. TECHNICAL DOCUMENTATION: JOB ID: [id number] [employer]- All Rights Reserved Reading location - IP/workstation name: [email or web address]
[2017-10-17 11:03] LABS: ABSOLUTE LYMPHOCYTES# (MANUAL) 1.8 10^3/uL (0.5-4.7); ABSOLUTE MONOCYTES # (MANUAL) 0.5 10^3/uL (0.1-1.4); ABSOLUTE NEUTROPHILS# (MANUAL) 3.3 10^3/uL (1.7-8.2); BASOPHILS % (MANUAL) 0 % (0-2); EOSINOPHILS % (MANUAL) 1 % (0-6); HYPERSEGMENTED NEUTROPHILS PRESENT; LYMPHOCYTES % (MANUAL) 31 % (13-45); MONOCYTES % (MANUAL) 9 % (3-13); NUCLEATED RED BLOOD CELLS 1 /100 WBC (0); SEGMENTED NEUTROPHILS % (MAN) 58 % (42-78); TOTAL CELLS COUNTED 100; TOXIC GRANULATION SLIGHT; TOXIC VACUOLATION PRESENT
[2017-10-17 11:04] LABS: ANISOCYTOSIS 2+; PLATELET COMMENT ADEQUATE; POLYCHROMASIA 2+; SICKLE RED CELLS 2+; TARGET CELLS SLIGHT
[2017-10-17] MEDS ORDERED: DIPHENHYDRAMINE HCL 50 MG/ML VIAL IV ONE (11:31)
--- NOTE | 2017-10-17 12:45 | ER Document Report ---
ED General Pain - General Chief Complaint: Sickle Cell Crisis Stated Complaint: BODY PAIN Time Seen by Provider: 10/17/17 09:59 Notes: Patient with known sickle cell disease and frequent visits to this emergency department who says he is having pain in his ribs, elbows, knees, and ankles today. 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 Also, he thinks that heat may be contributing to his symptoms. Patient says he did have some transient priapism during the night but it is back to normal. Has not had a recent illness. No cough or cold or chest congestion. No fevers. No vomiting or no diarrhea. TRAVEL OUTSIDE OF THE [place] IN LAST 30 DAYS: No - Related Data Allergies/Adverse Reactions: famotidine [From Pepcid] Allergy (Severe, Verified 10/17/17 09:33) Anaphylaxis ketorolac tromethamine [From Toradol] Allergy (Severe, Verified 10/17/17 09:33) levofloxacin [From Levaquin] Allergy (Severe, Verified 10/17/17 09:33) meperidine HCl [From Demerol] Allergy (Severe, Verified 10/17/17 09:33) morphine [Morphine] Allergy (Severe, Verified 10/17/17 09:33) tramadol HCl [From Ultram] Allergy (Severe, Verified 10/17/17 09:33) amoxicillin [Amoxicillin] Allergy (Verified 10/17/17 09:33) fentanyl [Fentanyl] Allergy (Verified 10/17/17 09:33) latex [Latex] Allergy (Verified 10/17/17 09:33) ondansetron HCl [From Zofran] Allergy (Verified 10/17/17 09:33) Past Medical History - Social History Smoking Status: Former Smoker Chew tobacco use (# tins/day): No Frequency of alcohol use: None Drug Abuse: None Family History: Reviewed & Not Pertinent, Other Patient has suicidal ideation: No Patient has homicidal ideation: No Neurological Medical History: Reports: Hx Seizures Musculoskeltal Medical History: Reports Hx Musculoskeletal Deformity - right hip avascular necrosis Past Surgical History: Reports: Hx Appendectomy, Hx Vascular Surgery - L port placement - Immunizations Immunizations up to date: Yes Hx Diphtheria, Pertussis, Tetanus Vaccination: Yes Hx Pneumococcal Vaccination: 02/20/11 Review of Systems - Review of Systems Notes: REVIEW OF SYSTEMS: CONSTITUTIONAL : Denies fever. EENT: Denies eye, ear, nose or mouth or throat pain or other symptoms. CARDIOVASCULAR: Patient has pain across the lower front of the chest bilaterally. RESPIRATORY: Denies cough, chest congestion, but does feel a little bit short of breath GASTROINTESTINAL: Denies abdominal pain or nausea, vomiting, or diarrhea. GENITOURINARY: Denies difficulty or painful urinating, urinary frequency, blood in urine. MUSCULOSKELETAL: Has back pains. Has joint pain and swelling in both knees and ankles. SKIN: Denies rash or skin lesions. NEUROLOGICAL: Denies LOC or altered mental status. Denies headache. Denies sensory loss or motor deficits. ALL OTHER SYSTEMS REVIEWED AND NEGATIVE. Physical Exam - Vital signs Vitals: Temp Pulse Resp BP Pulse Ox 97.9 F 57 L 16 114/76 95 10/17/17 09:36 10/17/17 09:36 10/17/17 09:36 10/17/17 09:36 10/17/17 09:36 Interpretation: Normal - Notes Notes: PHYSICAL EXAMINATION: GENERAL: Well-appearing, in no acute distress. Appears to be in pain with movement. HEAD: Atraumatic, normocephalic. EYES: Pupils equal round and reactive to light, extraocular movements intact. ENT: oropharynx clear without exudates. Moist mucous membranes. NECK: Normal range of motion, supple. LUNGS: Breath sounds clear and equal bilaterally. HEART: Regular rate and rhythm without murmurs. ABDOMEN: Soft, nontender. No guarding or rebound. No masses. BACK: No tenderness throughout entire back. EXTREMITIES: Pain to touch or move either knee or ankles. NEUROLOGICAL: Normal speech, normal gait. Normal sensory, motor, and reflex exams. Awake, alert, and oriented x3. Cranial nerves normal. PSYCH: Normal mood, normal affect. SKIN: Warm, dry, no rashes. Course - Re-evaluation Re-evalutation: 10/17/17 13:17 Patient has received 2 L of saline IV. Pain medications given. Patient says he is feeling better and wishes to try to go home. Labs show no significant abnormalities from his chronic findings. - Vital Signs Vital signs: Temp Pulse Resp BP Pulse Ox 97.9 F 57 L 16 114/76 95 10/17/17 09:36 10/17/17 09:36 10/17/17 09:36 10/17/17 09:36 10/17/17 09:36 - Laboratory Result Diagrams: 10/17/17 10:23 10/17/17 10:23 Laboratory results interpreted by me: 10/17/17 10/17/17 10:23 10:23 RBC 2.56 L Hgb 9.3 L Hct 26.2 L MCV 103 H MCH 36.2 H RDW 19.7 H Retic Count (auto) 6.64 H Absolute Retic 0.170 H Chloride 108 H Calcium 7.9 L Total Bilirubin 2.4 H - Diagnostic Test Radiology results interpreted by me: 10/17/17 12:47 Chest x-ray shows patient to have some cardiomegaly and increased pulmonary vascular congestion. This is a chronic, repetitive finding on this patient's x- rays. Discharge - Discharge Clinical Impression: Sickle cell pain crisis, Joint pain Condition: Stable Disposition: HOME, SELF-CARE Additional Instructions: Sickle Cell Crisis You have "sickle cell crisis." Sickle cell disease is caused by abnormal hemoglobin. This hemoglobin can deform red blood cells into a sickle shape. These abnormal blood cells can block blood vessels. This causes the pain of sickle cell crisis. Sickle cell crisis can occur any time. But attacks are more likely with acute infection, dehydration, or altitude change. A crisis usually causes pain in the legs, back, abdomen, and chest. Sometimes the pain may ease and return later. The usual treatment is oxygen, pain medication, IV fluids, and treatment of infection. Attacks may take a couple of days to resolve. Return if the pain becomes more severe, or if there are new symptoms. Intravenous (IV) Fluids As part of your care today, you received intravenous (IV) fluids. IV fluids are administered to patients who are dehydrated or to those who have certain chemical (electrolyte) abnormalities that need correcting. You received Dilaudid, a narcotic pain medication, intravenously. FOLLOW-UP CARE: If you have been referred to a physician for follow-up care, call the physician s office for an appointment as you were instructed or within the next two days. If you experience worsening or a significant change in your symptoms, notify the physician immediately or return to the Emergency Department at any time for re-evaluation.
[2017-10-17 13:51] VITALS: BP 119/75
== END 2017-10-17 13:51 | disposition home or self-care (01) ==
LOC: ER 09:31
DX: D57.00 Hb-SS disease with crisis, unspecified (principal); M25.529 Pain in unspecified elbow; M25.561 Pain in right knee; M25.562 Pain in left knee; M25.571 Pain in right ankle and joints of right foot; M25.572 Pain in left ankle and joints of left foot; M25.472 Effusion, left ankle; M25.471 Effusion, right ankle; M25.462 Effusion, left knee; M25.461 Effusion, right knee; M54.9 Dorsalgia, unspecified; R07.81 Pleurodynia; R09.89 Other specified symptoms and signs involving the circulatory and respiratory systems; R06.02 Shortness of breath; I51.7 Cardiomegaly; Z87.891 Personal history of nicotine dependence; Z88.8 Allergy status to other drugs, medicaments and biological substances; Z88.1 Allergy status to other antibiotic agents; Z88.5 Allergy status to narcotic agent; Z88.0 Allergy status to penicillin; Z91.040 Latex allergy status
CPT/HCPCS: 36591; 96376; 99284; 96361; 96374; 96375; 36415; 85025; 85045; 80053; 84484; 71046; A9270; J1200; J1170; J7030

== ENCOUNTER 2017-10-18 07:56 | Emergency (ER) | payer MEDICARE, MEDICAID ==
[2017-10-18] MEDS ORDERED: DIPHENHYDRAMINE HCL 50 MG/ML VIAL IV ONE ×3 (09:17→20:57)
[2017-10-18] MEDS ORDERED: HYDROMORPHONE HCL INJ/PF 2 MG/ML AMPULE IV ONE ×6 (09:17→22:35)
--- NOTE | 2017-10-18 09:37 | ER Document Report ---
ED General - General Chief Complaint: Sickle Cell Crisis Stated Complaint: SHORTNESS OF BREATH Time Seen by Provider: 10/18/17 09:15 TRAVEL OUTSIDE OF THE [place] IN LAST 30 DAYS: No - HPI Notes: Patient is a 36-year-old male with history of sickle cell who presents to the ED complaining of left-sided chest wall pain and "lung pain" that began early this morning. Patient was here yesterday and was treated for a sickle-cell crisis not outside of his baseline, but patient did not have the chest symptoms. Patient states that he was feeling better when he was discharged, but this pain started up thereafter. He is still able to eat and drink, but does have a decreased p.o. intake. He is urinating normally. No other significant cardiopulmonary medical history. Denies any headache, fever, neck pain, URI, sore throat, palpitations, syncope, cough, abdominal pain, nausea/ vomiting/diarrhea, urinary retention, dysuria, hematuria, or rash. - Related Data Allergies/Adverse Reactions: famotidine [From Pepcid] Allergy (Severe, Verified 10/18/17 07:59) Anaphylaxis ketorolac tromethamine [From Toradol] Allergy (Severe, Verified 10/18/17 07:59) levofloxacin [From Levaquin] Allergy (Severe, Verified 10/18/17 07:59) meperidine HCl [From Demerol] Allergy (Severe, Verified 10/18/17 07:59) morphine [Morphine] Allergy (Severe, Verified 10/18/17 07:59) tramadol HCl [From Ultram] Allergy (Severe, Verified 10/18/17 07:59) amoxicillin [Amoxicillin] Allergy (Verified 10/18/17 07:59) fentanyl [Fentanyl] Allergy (Verified 10/18/17 07:59) latex [Latex] Allergy (Verified 10/18/17 07:59) ondansetron HCl [From Zofran] Allergy (Verified 10/18/17 07:59) Past Medical History - Social History Smoking Status: Unknown if Ever Smoked Family History: Reviewed & Not Pertinent, Other - Past Medical History Cardiac Medical History: Denies: Hx Atrial Fibrillation, Hx Congestive Heart Failure, Hx Coronary Artery Disease Pulmonary Medical History: Denies: Hx Bronchitis, Hx Tuberculosis Neurological Medical History: Reports: Hx Seizures Endocrine Medical History: Denies: Hx Diabetes Mellitus Type 1 Renal/ Medical History: Denies: Hx Peritoneal Dialysis Musculoskeltal Medical History: Reports Hx Musculoskeletal Deformity - right hip avascular necrosis Psychiatric Medical History: Denies: Hx Depression Past Surgical History: Reports: Hx Appendectomy, Hx Vascular Surgery - L port placement - Immunizations Immunizations up to date: Yes Hx Diphtheria, Pertussis, Tetanus Vaccination: Yes Hx Pneumococcal Vaccination: 02/20/11 Review of Systems - Review of Systems -: Yes All other systems reviewed and negative Physical Exam - Vital signs Vitals: Temp Pulse Resp BP Pulse Ox 98.5 F 65 16 116/82 95 10/18/17 08:12 10/18/17 08:12 10/18/17 08:12 10/18/17 08:12 10/18/17 08:12 - Notes Notes: PHYSICAL EXAMINATION: GENERAL: Well-appearing, well-nourished and in no acute distress. HEAD: Atraumatic, normocephalic. EYES: Pupils equal round and reactive to light, extraocular movements intact, sclera anicteric, conjunctiva are normal. ENT: Nares patent and without discharge. oropharynx clear without exudates. No tonsilar hypertrophy or erythema. Moist mucous membranes. NECK: Normal range of motion, supple without lymphadenopathy Chest: + tenderness left chest wall and ribs, correlates with pain described. LUNGS: rales bilateral lower lobes. HEART: Regular rate and rhythm without murmurs, rubs, gallops. ABDOMEN: Soft, nontender, nondistended abdomen. No guarding, no rebound. No masses appreciated. Normal bowel sounds present. No CVA tenderness bilaterally. Musculoskeletal: FROM to passive/active. Strength 5+/5. Extremities: No cyanosis, clubbing, or edema b/l. Peripheral pulses 2+. Capillary refill less than 3 seconds. NEUROLOGICAL: Cranial nerves grossly intact. Normal speech, normal gait. PSYCH: Normal mood, normal affect. SKIN: Warm, Dry, normal turgor, no rashes or lesions noted. Course - Re-evaluation Re-evalutation: 10/18/17 10:[address] Pena who recommended transfer to [facility] (his supervisor sewer system is Dr. Hobosn). Called [facility] for transfer and am awaiting a call back. 10/18/17 11:44 Pt accepted at [facility] by Dr. Fernandez. ED physician at [facility] would not accept ED to ED transfer at this time. Spoke with Dr. Epps. We will try [facility] as the wait-time could be 24 hours or more. Spoke with [facility] and am waiting for a call back. 10/18/17 13:[address] Retana at [facility] who also accepted patient. Waiting on room assignment when a bed opens up. Whoever will take the patient first is where we will transfer. Pt in agreement. No new concerns or complaints. 10/18/17 18:01 [facility] has bed assignment. [facility] called 20 seconds later with a bed assignment as well. We chose [facility] as patient sees hematology there. Cancelled room with [facility]. Pt doing well with no new concerns or complaints. 10/18/17 19:05 Transfer of care at bedside with Keyana Whitney NP. - Vital Signs Vital signs: Temp Pulse Resp BP Pulse Ox 98.6 F 71 14 160/100 H 100 10/18/17 22:31 10/18/17 21:20 10/18/17 21:20 10/18/17 22:31 10/18/17 22:31 - Laboratory Result Diagrams: 10/18/17 09:32 10/18/17 09:32 Laboratory results interpreted by me: 10/18/17 10/18/17 09:32 09:32 RBC 2.50 L Hgb 9.1 L Hct 25.9 L MCV 104 H MCH 36.3 H RDW 18.9 H Lymphocytes % (Manual) 46 H Retic Count (auto) 6.46 H Absolute Retic 0.161 H Total Bilirubin 1.8 H ALT 20 L Discharge - Discharge Disposition: [place]
[2017-10-18 09:48] LABS: ABSOLUTE RETICS # 0.161 10^6/uL (0.028-0.122); HEMATOCRIT 25.9 % (37.9-51.0); HEMOGLOBIN 9.1 g/dL (13.5-17.0); MEAN CORPUSCULAR HEMOGLOBIN 36.3 pg (27.0-33.4); MEAN CORPUSCULAR VOLUME 104 fl (80-97); PLATELET COUNT 220 10^3/uL (150-450); RED CELL DISTRIBUTION WIDTH 18.9 % (11.5-14.0); RETICULOCYTE COUNT (AUTO) 6.46 % (0.66-2.85)
--- NOTE | 2017-10-18 10:02 | RADIOLOGY REPORT (SQ) ---
EXAM DESCRIPTION: CHEST 2 VIEWS COMPLETED DATE/TIME: 10/18/2017 9:48 am REASON FOR STUDY: sob COMPARISON: 10/17/2017 EXAM PARAMETERS: NUMBER OF VIEWS: two views TECHNIQUE: Digital Frontal and Lateral radiographic views of the chest acquired. RADIATION DOSE: NA LIMITATIONS: none FINDINGS: LUNGS AND PLEURA: Chronic changes in lung bases which appear slightly more prominent raisi ng the possibility of superimposed edema or pneumonia. No effusions. MEDIASTINUM AND HILAR STRUCTURES: No masses or contour abnormalities. HEART AND VASCULAR STRUCTURES: Mild cardiac megaly and mild vascular congestion. BONES: No acute findings. HARDWARE: Left jugular Port-A-Cath. OTHER: No other significant finding. IMPRESSION: 1. Worsening basilar density suggesting pulmonary edema or pneumonia superimposed on ch ronic change. 2. Mild cardiomegaly and mild vascular congestion. TECHNICAL DOCUMENTATION: JOB ID: [id number] [employer]- All Rights Reserved Reading location - IP/workstation name: [email or web address]
[2017-10-18 10:07] LABS: ALANINE AMINOTRANSFERASE 20 U/L (21-72); ALBUMIN 3.8 g/dL (3.5-5.0); ALKALINE PHOSPHATASE 66 U/L (38-126); ANION GAP 9 (5-19); ASPARTATE AMINO TRANSFERASE 32 U/L (17-59); BILIRUBIN,DIRECT 0.2 mg/dL (0.0-0.4); BILIRUBIN,TOTAL 1.8 mg/dL (0.2-1.3); BLOOD UREA NITROGEN 8 mg/dL (7-20); CALCIUM 8.5 mg/dL (8.4-10.2); CARBON DIOXIDE 29 mmol/L (22-30); CHLORIDE 106 mmol/L (98-107); GLUCOSE 94 mg/dL (75-110); POTASSIUM 3.9 mmol/L (3.6-5.0); SODIUM 143.9 mmol/L (137-145); TOTAL PROTEIN 7.4 g/dL (6.3-8.2)
[2017-10-18] MEDS: NORMAL SALINE 1000 ML 1,000 ML IV PRN ×2 (10:13→10:16)
[2017-10-18 10:29] LABS: ABSOLUTE LYMPHOCYTES# (MANUAL) 2.8 10^3/uL (0.5-4.7); ABSOLUTE MONOCYTES # (MANUAL) 0.5 10^3/uL (0.1-1.4); ABSOLUTE NEUTROPHILS# (MANUAL) 2.7 10^3/uL (1.7-8.2); BASOPHILS % (MANUAL) 0 % (0-2); EOSINOPHILS % (MANUAL) 1 % (0-6); LYMPHOCYTES % (MANUAL) 46 % (13-45); MONOCYTES % (MANUAL) 8 % (3-13); SEGMENTED NEUTROPHILS % (MAN) 45 % (42-78); TOTAL CELLS COUNTED 100
[2017-10-18 10:30] LABS: HOWELL-JOLLY BODIES PRESENT
[2017-10-18 10:32] LABS: ANISOCYTOSIS 2+; HYPERSEGMENTED NEUTROPHILS PRESENT; HYPOCHROMASIA 1+; PLATELET COMMENT ADEQUATE; POIKILOCYTOSIS 3+; POLYCHROMASIA 2+; SCHISTOCYTES 1+; SICKLE RED CELLS 1+; TARGET CELLS SLIGHT
[2017-10-18] MEDS ORDERED: CEFOTAXIME INJ 1 GM VIAL IV ONE (10:32)
[2017-10-18] MEDS ORDERED: AZITHROMYCIN INJ 500 MG VIAL IV ONE (10:32)
[2017-10-18 10:33] LABS: OVALOCYTES 1+; TEAR DROP CELLS SLIGHT
--- NOTE | 2017-10-18 22:42 | ER Document Report ---
Doctor's Note Notes: 10/18/17 22:40 Patient re-evaluted for transfer. Requesting pain medication prior to transfer. Medication ordered. Patient stable on EMS arrival. Will transfer patient.
[2017-10-18 22:49] VITALS: BP 160/100
--- NOTE | 2017-10-19 00:19 | EKG REPORT ---
SEVERITY:- ABNORMAL ECG - SINUS RHYTHM PROBABLE LEFT ATRIAL ABNORMALITY : Confirmed by: Zoya Davila MD 19-Oct-2017 00:18:44
== END 2017-10-18 22:56 | disposition short-term general hospital (02) ==
LOC: ER 07:56
DX: R07.89 Other chest pain (principal); D57.00 Hb-SS disease with crisis, unspecified; Z88.0 Allergy status to penicillin; Z91.040 Latex allergy status
CPT/HCPCS: 93005; 96376; 99285; 96361; 96375; 96365; 96367; 36415; 87040; 85025; 87077; 85045; 80053; 84484; 87186; 83880; 71046; 93010; J0698; J1200; J1170; J7030; J0456

== ENCOUNTER 2017-11-03 02:29 | Emergency (ER) | payer MEDICARE, MEDICAID ==
[2017-11-03] MEDS ORDERED: DIPHENHYDRAMINE HCL 50 MG/ML VIAL IV ONE (03:44)
[2017-11-03] MEDS ORDERED: HYDROMORPHONE HCL INJ/PF 2 MG/ML AMPULE IV ONE ×4 (03:44→06:28)
[2017-11-03] MEDS: NORMAL SALINE 1000 ML 1,000 ML IV PRN ×2 (04:01→04:42)
[2017-11-03 04:02] LABS: ALANINE AMINOTRANSFERASE 40 U/L (21-72); ALBUMIN 4.1 g/dL (3.5-5.0); ALKALINE PHOSPHATASE 64 U/L (38-126); ANION GAP 9 (5-19); ASPARTATE AMINO TRANSFERASE 33 U/L (17-59); BILIRUBIN,DIRECT 0.1 mg/dL (0.0-0.4); BILIRUBIN,TOTAL 1.2 mg/dL (0.2-1.3); BLOOD UREA NITROGEN 12 mg/dL (7-20); CALCIUM 9.2 mg/dL (8.4-10.2); CARBON DIOXIDE 30 mmol/L (22-30); CHLORIDE 105 mmol/L (98-107); GLUCOSE 87 mg/dL (75-110); POTASSIUM 4.1 mmol/L (3.6-5.0); SODIUM 144.3 mmol/L (137-145)
[2017-11-03 04:07] LABS: ABSOLUTE RETICS # 0.237 10^6/uL (0.028-0.122); HEMATOCRIT 25.4 % (37.9-51.0); MEAN CORPUSCULAR HEMOGLOBIN 36.5 pg (27.0-33.4); MEAN CORPUSCULAR HGB CONC 35.6 g/dL (32.0-36.0); MEAN CORPUSCULAR VOLUME 102 fl (80-97); PLATELET COUNT 506 10^3/uL (150-450); RED BLOOD COUNT 2.48 10^6/uL (4.35-5.55); RED CELL DISTRIBUTION WIDTH 20.7 % (11.5-14.0); RETICULOCYTE COUNT (AUTO) 9.53 % (0.66-2.85)
--- NOTE | 2017-11-03 04:14 | ER Document Report ---
ED General - General Chief Complaint: Sickle Cell Crisis Stated Complaint: SICKLE CELL CRISIS Time Seen by Provider: 11/03/17 03:27 Notes: Patient is a 36-year-old male who presents with complaint of sickle cell pain crisis. He has pain through all his joints. Says he has some pain into his ribs that hurts to cough but he does not feel short of breath. He denies any fevers. No vomiting. Mild pain in his stomach. Does have a history of appendectomy. He still has his spleen. He still has his gallbladder. He does have previous history of acute chest syndrome. He was recently transferred to [facility] because of having bilateral infiltrates on his chest x-ray. He said he did not go an acute chest syndrome at that time and that having a pneumonia that was treated and improved from. TRAVEL OUTSIDE OF THE [place] IN LAST 30 DAYS: No - Related Data Allergies/Adverse Reactions: famotidine [From Pepcid] Allergy (Severe, Verified 10/18/17 07:59) Anaphylaxis ketorolac tromethamine [From Toradol] Allergy (Severe, Verified 10/18/17 07:59) levofloxacin [From Levaquin] Allergy (Severe, Verified 10/18/17 07:59) meperidine HCl [From Demerol] Allergy (Severe, Verified 10/18/17 07:59) morphine [Morphine] Allergy (Severe, Verified 10/18/17 07:59) tramadol HCl [From Ultram] Allergy (Severe, Verified 10/18/17 07:59) amoxicillin [Amoxicillin] Allergy (Verified 10/18/17 07:59) fentanyl [Fentanyl] Allergy (Verified 10/18/17 07:59) latex [Latex] Allergy (Verified 10/18/17 07:59) ondansetron HCl [From Zofran] Allergy (Verified 10/18/17 07:59) Past Medical History - Social History Smoking Status: Never Smoker Frequency of alcohol use: None Drug Abuse: None Family History: Reviewed & Not Pertinent, Other Patient has suicidal ideation: No Patient has homicidal ideation: No - Past Medical History Cardiac Medical History: Denies: Hx Atrial Fibrillation, Hx Congestive Heart Failure, Hx Coronary Artery Disease Pulmonary Medical History: Denies: Hx Bronchitis, Hx Tuberculosis Neurological Medical History: Reports: Hx Seizures Endocrine Medical History: Denies: Hx Diabetes Mellitus Type 1 Renal/ Medical History: Denies: Hx Peritoneal Dialysis Musculoskeletal Medical History: Reports Hx Musculoskeletal Deformity - right hip avascular necrosis Psychiatric Medical History: Denies: Hx Depression Past Surgical History: Reports: Hx Appendectomy, Hx Vascular Surgery - L port placement - Immunizations Immunizations up to date: Yes Hx Diphtheria, Pertussis, Tetanus Vaccination: Yes Hx Pneumococcal Vaccination: 02/20/11 Review of Systems - Review of Systems Notes: My Normal Review Basic REVIEW OF SYSTEMS: CONSTITUTIONAL : Denies fever, chills, or sweats. Denies recent illness. EENT: Denies eye, ear, throat, or mouth pain or symptoms. Denies nasal or sinus congestion. CARDIOVASCULAR: Denies chest pain. RESPIRATORY: Denies cough, cold, or chest congestion. Denies shortness of breath, difficulty breathing, or wheezing. GASTROINTESTINAL: Epigastric abdominal pain. Denies nausea, vomiting, or diarrhea. GENITOURINARY: Denies difficulty urinating, painful urination, burning, frequency, or blood in urine. MUSCULOSKELETAL: Pain in arms and legs. SKIN: Denies rash or skin lesions. NEUROLOGICAL: Denies altered mental status or loss of consciousness. Denies headache. Denies weakness or paralysis or loss of use of either side. Denies problems with gait or speech. Denies sensory or motor loss. ALL OTHER SYSTEMS REVIEWED AND NEGATIVE. Physical Exam - Vital signs Vitals: Temp Pulse Resp BP Pulse Ox 98.3 F 63 17 123/80 99 11/03/17 02:38 11/03/17 02:38 11/03/17 02:38 11/03/17 02:38 11/03/17 02:38 - Notes Notes: General Appearance: Well nourished, alert, cooperative, no acute distress, moderate obvious discomfort. Vitals: reviewed, See vital signs table. Head: no swelling or tenderness to the head Eyes: PERRL, EOMI, Conjuctiva clear Mouth: No decreasd moisture Lungs: No wheezing, No rales, No rhonci, No accessory muscle use, good air exchange bilaterally. Heart: Normal rate, Regular rythm, No murmur, no rub Abdomen: Normal BS, soft, No rigidity, No abdominal tenderness, No guarding, no rebound, no abdominal masses, Extremities: strength 5/5 in all extremities, good pulses in all extremities, no swelling or tenderness in the extremities, no edema. Skin: warm, dry, appropriate color, no rash Neuro: speech clear, oriented x 3, normal affect, responds appropriately to questions. Course - Re-evaluation Re-evalutation: 11/03/17 05:09 Patient says that pain has improved a little bit but he still having significant pain. 11/03/17 06:28 Patient says that his pain is improved greatly now. He says he still has a little bit of pain but still point where he feels that he wants to go home and do home treatment for remainder of his pain. I did offer to admit him to the hospital. Patient said he prefers to go home at this time and feels well. His chest x-ray shows small bilateral interstitial infiltrate of process which in reviewing the patient's previous chest x-rays over the course of the year they all seem to have this exact same appearance. I suspect he probably has chronic scarring or fibrosis from previous episodes of acute chest syndrome. I do not suspect acute chest syndrome or pneumonia at this time as the patient is 100% on room air, he is not tachycardic, he does not have any difficulty breathing, he does not have fevers, and he does not have a leukocytosis. Patient clinically looks very well. I will discharge him as he requests. I will give him 1 more dose of pain medicine for leave so there is now lag in his pain control between now when he gets home. I informed him that even though he is decided to go home that I want him to have a very low threshold to return to the ER immediately if he has worsening recurrent pain, difficulty breathing, fevers, or if he feels unwell. Patient agrees with plan will be discharged home. Dictation of this chart was performed using voice recognition software; therefore, there may be some unintended grammatical errors. - Vital Signs Vital signs: Temp Pulse Resp BP Pulse Ox 98.3 F 63 17 123/80 99 11/03/17 02:38 11/03/17 02:38 11/03/17 02:38 11/03/17 02:38 11/03/17 02:38 - Laboratory Result Diagrams: 11/03/17 03:32 11/03/17 03:32 Laboratory results interpreted by me: 11/03/17 03:32 RBC 2.48 L Hgb 9.0 L Hct 25.4 L MCV 102 H MCH 36.5 H RDW 20.7 H Plt Count 506 H Seg Neuts % (Manual) 39 L Lymphocytes % (Manual) 51 H Metamyelocytes % 1 H Abs Neuts (Manual) 0.0 L Abs Lymphs (Manual) 0.0 L Abs Monocytes (Manual) 0.0 L Retic Count (auto) 9.53 H Absolute Retic 0.237 H - EKG Interpretation by Me Additional EKG results interpreted by me: 11/03/17 04:59 EKG is reviewed and interpreted by me. EKG shows sinus rhythm with a rate of [address] segment elevation or depression. No ischemic T wave inversions. IN interval, QRS duration, QTc intervals are within normal range. Discharge - Discharge Clinical Impression: Sickle cell crisis Condition: Good Disposition: HOME, SELF-CARE Additional Instructions: Please take your home pain control as prescribed. Please have a low threshold to return to the ER if you have worsening pain, difficulty breathing, fevers, abdominal pain, or feel unwell. Follow up closely with your infrastructure tech this week.
[2017-11-03 04:56] LABS: BASOPHILS % (MANUAL) 1 % (0-2); EOSINOPHILS % (MANUAL) 1 % (0-6); LYMPHOCYTES % (MANUAL) 51 % (13-45); METAMYELOCYTES % (MANUAL) 1 % (0); MONOCYTES % (MANUAL) 7 % (3-13); NUCLEATED RED BLOOD CELLS 2 /100 WBC (0); SEGMENTED NEUTROPHILS % (MAN) 39 % (42-78); TOTAL CELLS COUNTED 100
--- NOTE | 2017-11-03 04:57 | RADIOLOGY REPORT (SQ) ---
EXAM DESCRIPTION: XR CHEST 1 VIEW COMPLETED DATE/TME: 11/03/2017 03:43 CLINICAL HISTORY: sickle cell COMPARISON: 10/18/2017 FINDINGS: Single frontal view of the chest. Left-sided Mediport. Cardiac mediastinal silhouette demonstrates mild enlargement of the heart. Low lung volumes. Patchy bibasilar opacities are stable. No pneumothorax. No large effusion. Leads overlie the chest. No acute osseous abnormalities identified. Upper abdominal soft tissues are unremarkable. IMPRESSION: 1. Redemonstrated patchy bibasilar opacities which may be related to pneumonia or atelectasis. 2. Cardiomegaly.
[2017-11-03 04:58] LABS: ANISOCYTOSIS 2+; HYPOCHROMASIA 1+; POIKILOCYTOSIS 2+; POLYCHROMASIA 1+
[2017-11-03 04:59] LABS: OVALOCYTES 1+; SICKLE RED CELLS 1+; WHITE BLOOD COUNT 5.9 10^3/uL (4.0-10.5)
[2017-11-03 05:00] LABS: PLATELET COMMENT INCREASED
[2017-11-03 05:01] LABS: PLATELET LARGE PRESENT
--- NOTE | 2017-11-03 08:22 | EKG REPORT ---
SEVERITY:- ABNORMAL ECG - SINUS RHYTHM PROBABLE LEFT ATRIAL ABNORMALITY PROBABLE ANTEROSEPTAL INFARCT, AGE INDETERM : Confirmed by: Zoya Davila MD 03-Nov-2017 08:22:28
[2017-11-03] MEDS ORDERED: HYDROMORPHONE HCL INJ/PF 2 MG/ML AMPULE ONE (08:24)
[2017-11-03 08:32] VITALS: BP 134/93
== END 2017-11-03 08:30 | disposition home or self-care (01) ==
LOC: ER 02:29
DX: D57.00 Hb-SS disease with crisis, unspecified (principal); R07.81 Pleurodynia; R10.9 Unspecified abdominal pain
CPT/HCPCS: 93005; 99284; 36415; 85025; 85045; 80053; 71045; 93010; J1200; J1170; J7030

== ENCOUNTER 2017-11-26 20:10 | Emergency (ER) | payer MEDICARE, MEDICAID ==
[2017-11-26] MEDS ORDERED: NORMAL SALINE 1000 ML 1,000 ML IV PRN (20:46)
[2017-11-26] MEDS ORDERED: NORMAL SALINE 1000 ML 1,000 ML IV ONE (20:46)
[2017-11-26] MEDS ORDERED: HYDROMORPHONE HCL INJ/PF 2 MG/ML AMPULE IV ONE ×2 (20:47→22:16)
[2017-11-26] MEDS ORDERED: PROCHLORPERAZINE EDISYLATE INJ 10 MG/2 ML VIAL IV ONE (20:47)
--- NOTE | 2017-11-26 20:48 | ER Document Report ---
ED Medical Screen (RME) - General Chief Complaint: Sickle Cell Crisis Stated Complaint: SICKLE CELL,GENERAL BODY PAIN Time Seen by Provider: 11/26/17 20:46 Notes: 36 years old male with a history of sickle cell disease presents today with pain syndrome, pain over the all joints and bones. Denies any fever chills or other constitutional symptoms. TRAVEL OUTSIDE OF THE [place] IN LAST 30 DAYS: No - Related Data Allergies/Adverse Reactions: famotidine [From Pepcid] Allergy (Severe, Verified 10/18/17 07:59) Anaphylaxis ketorolac tromethamine [From Toradol] Allergy (Severe, Verified 10/18/17 07:59) levofloxacin [From Levaquin] Allergy (Severe, Verified 10/18/17 07:59) meperidine HCl [From Demerol] Allergy (Severe, Verified 10/18/17 07:59) morphine [Morphine] Allergy (Severe, Verified 10/18/17 07:59) tramadol HCl [From Ultram] Allergy (Severe, Verified 10/18/17 07:59) amoxicillin [Amoxicillin] Allergy (Verified 10/18/17 07:59) fentanyl [Fentanyl] Allergy (Verified 10/18/17 07:59) latex [Latex] Allergy (Verified 10/18/17 07:59) ondansetron HCl [From Zofran] Allergy (Verified 10/18/17 07:59) Past Medical History - Social History Chew tobacco use (# tins/day): No Drug Abuse: None - Past Medical History Cardiac Medical History: Denies: Hx Atrial Fibrillation, Hx Congestive Heart Failure, Hx Coronary Artery Disease Pulmonary Medical History: Denies: Hx Bronchitis, Hx Tuberculosis Neurological Medical History: Reports: Hx Seizures Endocrine Medical History: Denies: Hx Diabetes Mellitus Type 1 Renal/ Medical History: Denies: Hx Peritoneal Dialysis Musculoskeltal Medical History: Reports Hx Musculoskeletal Deformity - right hip avascular necrosis Psychiatric Medical History: Denies: Hx Depression Past Surgical History: Reports: Hx Appendectomy, Hx Vascular Surgery - L port placement - Immunizations Immunizations up to date: Yes Hx Diphtheria, Pertussis, Tetanus Vaccination: Yes
[2017-11-26] MEDS ORDERED: DIPHENHYDRAMINE HCL 50 MG/ML VIAL ONE (20:55)
[2017-11-26] MEDS ORDERED: DIPHENHYDRAMINE HCL 50 MG/ML VIAL IV ONE ×2 (21:12→22:16)
[2017-11-26 21:47] LABS: ABSOLUTE RETICS # 0.144 10^6/uL (0.028-0.122); HEMATOCRIT 28.9 % (37.9-51.0); HEMOGLOBIN 9.9 g/dL (13.5-17.0); MEAN CORPUSCULAR HEMOGLOBIN 36.4 pg (27.0-33.4); MEAN CORPUSCULAR HGB CONC 34.4 g/dL (32.0-36.0); PLATELET COUNT 284 10^3/uL (150-450); RED BLOOD COUNT 2.73 10^6/uL (4.35-5.55); RED CELL DISTRIBUTION WIDTH 18.7 % (11.5-14.0); RETICULOCYTE COUNT (AUTO) 5.29 % (0.66-2.85); WHITE BLOOD COUNT 5.6 10^3/uL (4.0-10.5)
[2017-11-26 21:57] LABS: ALANINE AMINOTRANSFERASE 20 U/L (21-72); ALBUMIN 4.3 g/dL (3.5-5.0); ALKALINE PHOSPHATASE 70 U/L (38-126); ANION GAP 11 (5-19); ASPARTATE AMINO TRANSFERASE 28 U/L (17-59); BILIRUBIN,DIRECT 0.2 mg/dL (0.0-0.4); BILIRUBIN,TOTAL 1.4 mg/dL (0.2-1.3); BLOOD UREA NITROGEN 13 mg/dL (7-20); CALCIUM 8.9 mg/dL (8.4-10.2); CARBON DIOXIDE 27 mmol/L (22-30); CHLORIDE 105 mmol/L (98-107); GLUCOSE 107 mg/dL (75-110); POTASSIUM 4.1 mmol/L (3.6-5.0); SODIUM 143.3 mmol/L (137-145); TOTAL PROTEIN 8.1 g/dL (6.3-8.2)
[2017-11-26 22:03] LABS: MEAN CORPUSCULAR VOLUME 106 fl (80-97)
[2017-11-26 22:10] LABS: ABSOLUTE LYMPHOCYTES# (MANUAL) 2.7 10^3/uL (0.5-4.7); ABSOLUTE MONOCYTES # (MANUAL) 0.4 10^3/uL (0.1-1.4); ABSOLUTE NEUTROPHILS# (MANUAL) 2.5 10^3/uL (1.7-8.2); ANISOCYTOSIS 1+; BASOPHILS % (MANUAL) 0 % (0-2); EOSINOPHILS % (MANUAL) 0 % (0-6); LYMPHOCYTES % (MANUAL) 46 % (13-45); MONOCYTES % (MANUAL) 8 % (3-13); NUCLEATED RED BLOOD CELLS 1 /100 WBC (0); SEGMENTED NEUTROPHILS % (MAN) 44 % (42-78); TOTAL CELLS COUNTED 100
[2017-11-26 22:13] LABS: OVALOCYTES 1+; PLATELET COMMENT ADEQUATE; POIKILOCYTOSIS 2+; POLYCHROMASIA SLIGHT; SCHISTOCYTES SLIGHT; TARGET CELLS 1+
[2017-11-26 22:16] LABS: SICKLE RED CELLS SLIGHT; TEAR DROP CELLS SLIGHT
--- NOTE | 2017-11-26 22:22 | ER Document Report ---
ED General - General Chief Complaint: Sickle Cell Crisis Stated Complaint: SICKLE CELL,GENERAL BODY PAIN Time Seen by Provider: 11/26/17 20:46 Notes: Patient is a 36-year-old male with a history of sickle cell disease presents with complaint of full body pain. He says pain is all in his muscles. He denies any actual abdominal pain. The pain is more in his ribs and muscles. He still the gallbladder. Still is displaying. He has had previous appendectomy. Denies difficulty breathing. No fevers. No vomiting. Pain started around noon today. TRAVEL OUTSIDE OF THE [place] IN LAST 30 DAYS: No - Related Data Allergies/Adverse Reactions: famotidine [From Pepcid] Allergy (Severe, Verified 10/18/17 07:59) Anaphylaxis ketorolac tromethamine [From Toradol] Allergy (Severe, Verified 10/18/17 07:59) levofloxacin [From Levaquin] Allergy (Severe, Verified 10/18/17 07:59) meperidine HCl [From Demerol] Allergy (Severe, Verified 10/18/17 07:59) morphine [Morphine] Allergy (Severe, Verified 10/18/17 07:59) tramadol HCl [From Ultram] Allergy (Severe, Verified 10/18/17 07:59) amoxicillin [Amoxicillin] Allergy (Verified 10/18/17 07:59) fentanyl [Fentanyl] Allergy (Verified 10/18/17 07:59) latex [Latex] Allergy (Verified 10/18/17 07:59) ondansetron HCl [From Zofran] Allergy (Verified 10/18/17 07:59) Past Medical History - Social History Smoking Status: Never Smoker Chew tobacco use (# tins/day): No Drug Abuse: None Family History: Reviewed & Not Pertinent, Other Patient has suicidal ideation: No Patient has homicidal ideation: No - Past Medical History Cardiac Medical History: Denies: Hx Atrial Fibrillation, Hx Congestive Heart Failure, Hx Coronary Artery Disease Pulmonary Medical History: Denies: Hx Bronchitis, Hx Tuberculosis Neurological Medical History: Reports: Hx Seizures Endocrine Medical History: Denies: Hx Diabetes Mellitus Type 1 Renal/ Medical History: Denies: Hx Peritoneal Dialysis Musculoskeletal Medical History: Reports Hx Musculoskeletal Deformity - right hip avascular necrosis Psychiatric Medical History: Denies: Hx Depression Past Surgical History: Reports: Hx Appendectomy, Hx Vascular Surgery - L port placement - Immunizations Immunizations up to date: Yes Hx Diphtheria, Pertussis, Tetanus Vaccination: Yes Hx Pneumococcal Vaccination: 02/20/11 Review of Systems - Review of Systems Notes: My Normal Review Basic REVIEW OF SYSTEMS: CONSTITUTIONAL : Denies fever, chills, or sweats. Denies recent illness. EENT: Denies eye, ear, throat, or mouth pain or symptoms. Denies nasal or sinus congestion. CARDIOVASCULAR: rib pain RESPIRATORY: Denies cough, cold, or chest congestion. Denies shortness of breath, difficulty breathing, or wheezing. GASTROINTESTINAL: Denies abdominal pain. Denies nausea, vomiting, or diarrhea. Denies constipation. Last BM: GENITOURINARY: Denies difficulty urinating, painful urination, burning, frequency, or blood in urine. MUSCULOSKELETAL: pain in muscles SKIN: Denies rash or skin lesions. HEMATOLOGIC : Sickle cell disease NEUROLOGICAL: Denies altered mental status or loss of consciousness. Denies headache. Denies weakness or paralysis or loss of use of either side. Denies problems with gait or speech. Denies sensory or motor loss. ALL OTHER SYSTEMS REVIEWED AND NEGATIVE. Physical Exam - Vital signs Vitals: Resp BP Pulse Ox 18 140/86 H 100 11/26/17 22:33 11/26/17 22:33 11/26/17 22:33 - Notes Notes: General Appearance: Well nourished, alert, cooperative, no acute distress, moderate obvious discomfort. Vitals: reviewed, See vital signs table. Head: no swelling or tenderness to the head Eyes: PERRL, EOMI, Conjuctiva clear Mouth: No decreasd moisture Lungs: No wheezing, No rales, No rhonci, No accessory muscle use, good air exchange bilaterally. Heart: Normal rate, Regular rythm, No murmur, no rub Abdomen: Normal BS, soft, No rigidity, No abdominal tenderness, No guarding, no rebound, Extremities: strength 5/5 in all extremities, good pulses in all extremities, generalized muscle soreness with palpation of the muscles and extremities., no edema. Skin: warm, dry, appropriate color, no rash Neuro: speech clear, oriented x 3, normal affect, responds appropriately to questions. Course - Re-evaluation Re-evalutation: 11/27/17 04:12 Patient's pain is much improved and he now says he feels well and wants to go home. His vital signs are normal. He looks well. He has no acute findings on his chest x-ray. His lung stevens are clear. There is no fever or leukocytosis. I encourage him return to ER immediately if he has worsening pain , fevers, difficulty breathing, or feels unwell. Patient agrees with plan will be discharged home. Dictation of this chart was performed using voice recognition software; therefore, there may be some unintended grammatical errors. - Vital Signs Vital signs: Temp Pulse Resp BP Pulse Ox 18 135/87 H 100 11/27/17 00:01 11/27/17 03:01 11/27/17 03:01 - Laboratory Result Diagrams: 11/26/17 21:09 11/26/17 21:09 Laboratory results interpreted by me: 11/26/17 11/26/17 21:09 21:09 RBC 2.73 L Hgb 9.9 L Hct 28.9 L MCV 106 H D MCH 36.4 H RDW 18.7 H Lymphocytes % (Manual) 46 H Retic Count (auto) 5.29 H Absolute Retic 0.144 H Total Bilirubin 1.4 H ALT 20 L Lactate Dehydrogenase 306 H Discharge - Discharge Clinical Impression: Sickle cell crisis Condition: Good Disposition: HOME, SELF-CARE Additional Instructions: Sickle Cell Crisis You have "sickle cell crisis." Sickle cell disease is caused by abnormal hemoglobin. This hemoglobin can deform red blood cells into a sickle shape. These abnormal blood cells can block blood vessels. This causes the pain of sickle cell crisis. Sickle cell crisis can occur any time. But attacks are more likely with acute infection, dehydration, or altitude change. A crisis usually causes pain in the legs, back, abdomen, and chest. Sometimes the pain may ease and return later. The usual treatment is oxygen, pain medication, IV fluids, and treatment of infection. Attacks may take a couple of days to resolve. Return if the pain becomes more severe, or if there are new symptoms. Return to the ER immediately if you have worsening pain, fevers, difficulty breathing, abdominal pain, or feel unwell. Please follow-up with your manager fraud in the next 2-3 days. Forms: Return to Work
--- NOTE | 2017-11-26 23:04 | RADIOLOGY REPORT (SQ) ---
EXAM DESCRIPTION: XR CHEST 1 VIEW COMPLETED DATE/TME: 11/26/2017 22:17 CLINICAL HISTORY: 36 years Male, sickle cell pain COMPARISON: 7.15.18 NUMBER OF VIEWS/TECHNIQUE: 1/AP FINDINGS: Adequate lung volume, moderate chronic interstitial markings, normal cardiac silhouette, left miniport central line tip at the SVC, and grossly intact bony thorax. IMPRESSION: Chronic interstitial lung disease pattern.
[2017-11-27] MEDS ORDERED: HYDROMORPHONE HCL INJ/PF 2 MG/ML AMPULE IV ONE (00:37)
[2017-11-27 04:52] VITALS: BP 141/81
== END 2017-11-27 04:48 | disposition home or self-care (01) ==
LOC: ER 20:10
DX: D57.00 Hb-SS disease with crisis, unspecified (principal); R07.81 Pleurodynia; I25.10 Atherosclerotic heart disease of native coronary artery without angina pectoris
CPT/HCPCS: 36591; 96376; 99284; 96361; 96374; 96375; 36415; 83615; 85025; 85045; 80053; 71045; J1200; J1170 ×2; J7030 ×2

== ENCOUNTER 2018-01-21 14:01 | Emergency (ER) | payer MEDICARE, MEDICAID ==
--- NOTE | 2018-01-21 15:27 | ER Document Report ---
ED Medical Screen (RME) - General Chief Complaint: Sickle Cell Crisis Stated Complaint: PAIN Time Seen by Provider: 01/21/18 15:24 Mode of Arrival: Ambulatory Information source: Patient, [facility] Records Notes: 37-year-old male with sickle cell disease presents with complaint of knee pain, myalgia that started 4 hours prior to arrival. I have greeted and performed a rapid initial assessment of this patient. A comprehensive ED assessment and evaluation of the patient, analysis of test results and completion of medical decision making process we will be contacted by additional ED providers. PHYSICAL EXAMINATION: Vital signs reviewed GENERAL: Well-appearing, well-nourished and in no acute distress. LUNGS: No respiratory distress Musculoskeletal: Normal range of motion NEUROLOGICAL: Normal speech, normal gait. PSYCH: Normal mood, normal affect. SKIN: Warm, Dry, normal turgor, no rashes or lesions noted. TRAVEL OUTSIDE OF THE [place] IN LAST 30 DAYS: No - HPI Onset: Just prior to arrival Onset/Duration: Gradual Quality of pain: Achy Severity: Moderate Associated Symptoms: Rhinorrhea. denies: Cough (productive), Fever Exacerbated by: Denies Relieved by: Denies Similar symptoms previously: Yes Recently seen / treated by doctor: No - Related Data Smoking: Non-smoker Frequency of alcohol use: None Drug Abuse: None Allergies/Adverse Reactions: famotidine [From Pepcid] Allergy (Severe, Verified 01/21/18 15:22) Anaphylaxis ketorolac tromethamine [From Toradol] Allergy (Severe, Verified 01/21/18 15:22) levofloxacin [From Levaquin] Allergy (Severe, Verified 01/21/18 15:22) meperidine HCl [From Demerol] Allergy (Severe, Verified 01/21/18 15:22) morphine [Morphine] Allergy (Severe, Verified 01/21/18 15:22) tramadol HCl [From Ultram] Allergy (Severe, Verified 01/21/18 15:22) amoxicillin [Amoxicillin] Allergy (Verified 01/21/18 15:22) fentanyl [Fentanyl] Allergy (Verified 01/21/18 15:22) latex [Latex] Allergy (Verified 01/21/18 15:22) ondansetron HCl [From Zofran] Allergy (Verified 01/21/18 15:22) Past Medical History - Social History Chew tobacco use (# tins/day): No Frequency of alcohol use: None Drug Abuse: None - Past Medical History Cardiac Medical History: Denies: Hx Atrial Fibrillation, Hx Congestive Heart Failure, Hx Coronary Artery Disease Pulmonary Medical History: Denies: Hx Bronchitis, Hx Tuberculosis Neurological Medical History: Reports: Hx Seizures Endocrine Medical History: Denies: Hx Diabetes Mellitus Type 1 Renal/ Medical History: Denies: Hx Peritoneal Dialysis Musculoskeltal Medical History: Reports Hx Musculoskeletal Deformity - right hip avascular necrosis Psychiatric Medical History: Denies: Hx Depression Past Surgical History: Reports: Hx Appendectomy, Hx Vascular Surgery - L port placement - Immunizations Immunizations up to date: Yes Hx Diphtheria, Pertussis, Tetanus Vaccination: Yes Physical Exam - Vital signs Vitals: Temp Pulse Resp BP Pulse Ox 99 F 72 16 113/55 L 98 01/21/18 14:28 01/21/18 14:28 01/21/18 14:28 01/21/18 14:28 01/21/18 14:28 Course - Vital Signs Vital signs: Temp Pulse Resp BP Pulse Ox 99 F 72 16 113/55 L 98 01/21/18 14:28 01/21/18 14:28 01/21/18 14:28 01/21/18 14:28 01/21/18 14:28
[2018-01-21] MEDS ORDERED: HYDROMORPHONE HCL INJ/PF 2 MG/ML AMPULE IV ONE ×3 (15:28→18:43)
--- NOTE | 2018-01-21 16:19 | RADIOLOGY REPORT (SQ) ---
EXAM DESCRIPTION: CHEST 2 VIEWS COMPLETED DATE/TIME: 01/21/2018 4:03 pm REASON FOR STUDY: pain COMPARISON: 10/18/2017 EXAM PARAMETERS: NUMBER OF VIEWS: two views TECHNIQUE: Digital Frontal and Lateral radiographic views of the chest acquired. RADIATION DOSE: NA LIMITATIONS: none FINDINGS: LUNGS AND PLEURA: Chronic interstitial changes in the lungs, more so at the bases. No op acities, masses or pneumothorax. No pleural effusion. MEDIASTINUM AND HILAR STRUCTURES: No masses or contour abnormalities. HEART AND VASCULAR STRUCTURES: Heart normal size. No evidence for failure. BONES: No acute findings. HARDWARE: Left Slspwj-I-Atzz catheter, unchanged finding. Small rectangular tubing overlies the per iphery of the left upper lung, unchanged finding. OTHER: No other significant finding. IMPRESSION: 1. Stable chronic changes in the lungs. No acute findings. TECHNICAL DOCUMENTATION: JOB ID: [id number] [employer]- All Rights Reserved Reading location - IP/workstation name: [email or web address]
[2018-01-21] MEDS ORDERED: DIPHENHYDRAMINE HCL 50 MG CAPSULE PO ONE (16:35)
[2018-01-21] MEDS: NORMAL SALINE 1000 ML 1,000 ML IV PRN ×2 (16:39→18:20)
[2018-01-21 16:45] LABS: HEMATOCRIT 27.8 % (37.9-51.0); HEMOGLOBIN 9.8 g/dL (13.5-17.0); MEAN CORPUSCULAR HEMOGLOBIN 37.1 pg (27.0-33.4); MEAN CORPUSCULAR HGB CONC 35.2 g/dL (32.0-36.0); MEAN CORPUSCULAR VOLUME 106 fl (80-97); PLATELET COUNT 148 10^3/uL (150-450); RED BLOOD COUNT 2.63 10^6/uL (4.35-5.55); RETICULOCYTE COUNT (AUTO) 5.69 % (0.66-2.85); WHITE BLOOD COUNT 4.3 10^3/uL (4.0-10.5)
[2018-01-21 17:01] LABS: ALANINE AMINOTRANSFERASE 20 U/L (21-72); ALBUMIN 4.3 g/dL (3.5-5.0); ALKALINE PHOSPHATASE 54 U/L (38-126); ANION GAP 7 (5-19); ASPARTATE AMINO TRANSFERASE 28 U/L (17-59); BILIRUBIN,DIRECT 0.5 mg/dL (0.0-0.4); BILIRUBIN,TOTAL 2.2 mg/dL (0.2-1.3); BLOOD UREA NITROGEN 11 mg/dL (7-20); CALCIUM 8.9 mg/dL (8.4-10.2); CARBON DIOXIDE 29 mmol/L (22-30); CHLORIDE 104 mmol/L (98-107); GLUCOSE 91 mg/dL (75-110); POTASSIUM 4.2 mmol/L (3.6-5.0); SODIUM 139.9 mmol/L (137-145)
[2018-01-21 17:11] LABS: ABSOLUTE MONOCYTES # (MANUAL) 0.3 10^3/uL (0.1-1.4); ABSOLUTE NEUTROPHILS# (MANUAL) 1.8 10^3/uL (1.7-8.2); BASOPHILS % (MANUAL) 2 % (0-2); EOSINOPHILS % (MANUAL) 2 % (0-6); LYMPHOCYTES % (MANUAL) 44 % (13-45); MONOCYTES % (MANUAL) 7 % (3-13); NUCLEATED RED BLOOD CELLS 4 /100 WBC (0); SEGMENTED NEUTROPHILS % (MAN) 43 % (42-78); TOTAL CELLS COUNTED 100
[2018-01-21 17:14] LABS: ANISOCYTOSIS 1+; OVALOCYTES 1+; PLATELET COMMENT ADEQUATE; POIKILOCYTOSIS 1+; POLYCHROMASIA SLIGHT; TARGET CELLS 1+
[2018-01-21 17:16] LABS: SCHISTOCYTES SLIGHT; SICKLE RED CELLS SLIGHT
[2018-01-21 17:17] LABS: TEAR DROP CELLS SLIGHT
--- NOTE | 2018-01-21 17:58 | ER Document Report ---
ED General Pain - General Chief Complaint: Sickle Cell Crisis Stated Complaint: PAIN Time Seen by Provider: 01/21/18 15:24 Mode of Arrival: Ambulatory Notes: Patient with a history of sickle cell disease for which she is on the usual medications including hydroxyurea, folate, Dilaudid 3-4 mg per dose, who presents with generalized pain. He says this started last night in his knees, as if someone was hitting him with a baseball bat. It proceeded to hurt and his hips and then other joints and then throughout his entire body. He developed some chest pains as well. Has had a recent nonproductive cough. Has not had any fever. Has had some runny nose. PMH: Appendectomy, avascular necrosis of the right hip. TRAVEL OUTSIDE OF THE [place] IN LAST 30 DAYS: No - Related Data Allergies/Adverse Reactions: famotidine [From Pepcid] Allergy (Severe, Verified 01/21/18 15:22) Anaphylaxis ketorolac tromethamine [From Toradol] Allergy (Severe, Verified 01/21/18 15:22) levofloxacin [From Levaquin] Allergy (Severe, Verified 01/21/18 15:22) meperidine HCl [From Demerol] Allergy (Severe, Verified 01/21/18 15:22) morphine [Morphine] Allergy (Severe, Verified 01/21/18 15:22) tramadol HCl [From Ultram] Allergy (Severe, Verified 01/21/18 15:22) amoxicillin [Amoxicillin] Allergy (Verified 01/21/18 15:22) fentanyl [Fentanyl] Allergy (Verified 01/21/18 15:22) latex [Latex] Allergy (Verified 01/21/18 15:22) ondansetron HCl [From Zofran] Allergy (Verified 01/21/18 15:22) Past Medical History - General Information source: Patient, [facility] Records - Social History Smoking Status: Never Smoker Chew tobacco use (# tins/day): No Frequency of alcohol use: None Drug Abuse: None Family History: Reviewed & Not Pertinent, Other Patient has suicidal ideation: No Patient has homicidal ideation: No Neurological Medical History: Reports: Hx Seizures Endocrine Medical History: Denies: Hx Diabetes Mellitus Type 1, Hx Diabetes Mellitus Type 2 Musculoskeletal Medical History: Reports Hx Musculoskeletal Deformity - right hip avascular necrosis Past Surgical History: Reports: Hx Appendectomy, Hx Vascular Surgery - L port placement - Immunizations Immunizations up to date: Yes Hx Diphtheria, Pertussis, Tetanus Vaccination: Yes Hx Pneumococcal Vaccination: 02/20/11 Review of Systems - Review of Systems Notes: REVIEW OF SYSTEMS: CONSTITUTIONAL : Denies fever. Complains of generalized pain. EENT: Denies eye, ear, nose or mouth or throat pain or other symptoms. CARDIOVASCULAR: Had some chest pain earlier, but not now.. RESPIRATORY: Has a cough and runny nose, but not much chest congestion. GASTROINTESTINAL: Denies abdominal pain or nausea, vomiting, or diarrhea. GENITOURINARY: Denies difficulty or painful urinating, urinary frequency, blood in urine. MUSCULOSKELETAL: See HPI. SKIN: Denies rash or skin lesions. NEUROLOGICAL: Denies LOC or altered mental status. Denies headache. Denies sensory loss or motor deficits. ALL OTHER SYSTEMS REVIEWED AND NEGATIVE. Physical Exam - Vital signs Vitals: Temp Pulse Resp BP Pulse Ox 99 F 72 16 113/55 L 98 01/21/18 14:28 01/21/18 14:28 01/21/18 14:28 01/21/18 14:28 01/21/18 14:28 Interpretation: Normal - Notes Notes: PHYSICAL EXAMINATION: GENERAL: Well-appearing, in no acute distress. HEAD: Atraumatic, normocephalic. EYES: Pupils equal round and reactive to light, extraocular movements intact. ENT: oropharynx clear without exudates. Moist mucous membranes. NECK: Normal range of motion, supple. LUNGS: Breath sounds clear and equal bilaterally. No rubs heard. HEART: Regular rate and rhythm without murmurs. No rubs heard. ABDOMEN: Soft, nontender. No guarding or rebound. No masses. BACK: tenderness throughout entire back. EXTREMITIES: Painful movement of all 4 extremities, but no significant swelling or effusions present. NEUROLOGICAL: Normal speech, slight limping gait. Normal sensory, motor, and reflex exams. Awake, alert, and oriented x3. Cranial nerves normal. PSYCH: Normal mood, normal affect. SKIN: Warm, dry, no rashes. Course - Re-evaluation Re-evalutation: 01/21/18 18:35 Patient is better, but says he would like to have one more round of pain medication before being discharged. I am also giving him a prescription for Phenergan. - Vital Signs Vital signs: Temp Pulse Resp BP Pulse Ox 99 F 72 16 124/83 98 01/21/18 14:28 01/21/18 14:28 01/21/18 18:01 01/21/18 18:01 01/21/18 18:01 - Laboratory Result Diagrams: 01/21/18 16:28 01/21/18 16:28 Laboratory results interpreted by me: 01/21/18 01/21/18 16:28 16:28 RBC 2.63 L Hgb 9.8 L Hct 27.8 L MCV 106 H MCH 37.1 H RDW 18.0 H Plt Count 148 L Retic Count (auto) 5.69 H Absolute Retic 0.150 H Total Bilirubin 2.2 H Direct Bilirubin 0.5 H ALT 20 L Discharge - Discharge Clinical Impression: Sickle cell pain crisis Condition: Stable Disposition: HOME, SELF-CARE Additional Instructions: Sickle Cell Crisis You have "sickle cell crisis." Sickle cell disease is caused by abnormal hemoglobin. This hemoglobin can deform red blood cells into a sickle shape. These abnormal blood cells can block blood vessels. This causes the pain of sickle cell crisis. Sickle cell crisis can occur any time. But attacks are more likely with acute infection, dehydration, or altitude change. A crisis usually causes pain in the legs, back, abdomen, and chest. Sometimes the pain may ease and return later. The usual treatment is oxygen, pain medication, IV fluids, and treatment of infection. Attacks may take a couple of days to resolve. Return if the pain becomes more severe, or if there are new symptoms. PAIN MEDICATION INJECTION: You have received an injection of a pain medication. You should experience significant pain relief within 45 minutes. If this injection was a narcotic -- it will impair your judgement, slow your reaction time and make you sleepy (as well as relieve your pain). Narcotics also can cause nausea. You should not drive, work with machinery, or perform any task requiring mental alertness until all effects of the medication are gone -- six to eight hours. Do not take any alcohol, or sedatives, and do not take any other medication without checking with your physician. Antinausea Medication You have been given a medication to suppress nausea and vomiting. This type of medication can be given as a shot, pill, or suppository. It will usually last for many hours. Pills and shots usually last six to eight hours, suppositories last about 12 hours. For the typical illness, only one or two doses of the medication may be necessary. Mild lightheadedness may occur. This type of medicine can cause drowsiness. Do not drive or operate dangerous machinery while under its influence. Do not mix with alcohol. See your doctor at once if you have muscle spasms or tightness, or uncontrollable motions (particularly of the neck, mouth, or jaw). Persistent vomiting or severe lightheadedness should also be evaluated by the physician. FOLLOW-UP CARE: If you have been referred to a physician for follow-up care, call the physician s office for an appointment as you were instructed or within the next two days. If you experience worsening or a significant change in your symptoms, notify the physician immediately or return to the Emergency Department at any time for re-evaluation. Prescriptions: Promethazine HCl [Phenergan 25 mg Tablet] 1 - 2 tab PO Q6H PRN #15 tablet PRN Reason:
[2018-01-21] MEDS ORDERED: PROMETHAZINE HCL 25 MG TABLET PO ONE (18:39)
[2018-01-21] MEDS ORDERED: PROMETHAZINE HCL 25 MG TABLET ONE (18:40)
[2018-01-21 19:24] VITALS: BP 115/69
== END 2018-01-21 19:24 | disposition home or self-care (01) ==
LOC: ER 14:01
DX: D57.00 Hb-SS disease with crisis, unspecified (principal); M79.10 Myalgia, unspecified site; Z91.040 Latex allergy status; Z88.0 Allergy status to penicillin; Z88.6 Allergy status to analgesic agent
CPT/HCPCS: 36591; 99284; 96361; 96374; 36415; 85025; 85045; 80053; 71046; A9270 ×2; J1170

== ENCOUNTER 2018-01-22 23:24 | Emergency (ER) | payer MEDICARE, MEDICAID ==
--- NOTE | 2018-01-23 00:14 | ER Document Report ---
ED General - General Chief Complaint: Chest Pain Stated Complaint: CHEST PAIN Time Seen by Provider: 01/23/18 00:12 Mode of Arrival: Ambulatory Information source: Patient Notes: Patient is a 37-year-old male with a history of sickle cell anemia who is well- known to this emergency department. This visit, he presents to the emergency department with chest pain which started at 6:00 this evening. He describes his chest pain as a sharp shooting pain that radiates to his right shoulder which is 8/10. He states walking and moving around makes the pain worse. Lying still makes the pain better. He stated he took his hydromorphone and methadone at home with no relief. He has a history of acute chest syndrome when he was 16 and 20 years old and this time his pain feels similar to his acute chest syndrome crises. His current medications include methadone, hydroxyurea, hydromorphone p.o., and folate. TRAVEL OUTSIDE OF THE [place] IN LAST 30 DAYS: No - HPI Pain Level: 4 Exacerbated by: Movement, Walking Relieved by: Supine - Related Data Allergies/Adverse Reactions: famotidine [From Pepcid] Allergy (Severe, Verified 01/22/18 23:48) Anaphylaxis ketorolac tromethamine [From Toradol] Allergy (Severe, Verified 01/22/18 23:48) levofloxacin [From Levaquin] Allergy (Severe, Verified 01/22/18 23:48) meperidine HCl [From Demerol] Allergy (Severe, Verified 01/22/18 23:48) morphine [Morphine] Allergy (Severe, Verified 01/22/18 23:48) tramadol HCl [From Ultram] Allergy (Severe, Verified 01/22/18 23:48) amoxicillin [Amoxicillin] Allergy (Verified 01/22/18 23:48) fentanyl [Fentanyl] Allergy (Verified 01/22/18 23:48) latex [Latex] Allergy (Verified 01/22/18 23:48) ondansetron HCl [From Zofran] Allergy (Verified 01/22/18 23:48) Past Medical History - Social History Smoking Status: Never Smoker Frequency of alcohol use: None Drug Abuse: None Family History: Reviewed & Not Pertinent, Other Patient has suicidal ideation: No Patient has homicidal ideation: No - Past Medical History Cardiac Medical History: Denies: Hx Atrial Fibrillation, Hx Congestive Heart Failure, Hx Coronary Artery Disease Pulmonary Medical History: Denies: Hx Bronchitis, Hx Tuberculosis Neurological Medical History: Reports: Hx Seizures Endocrine Medical History: Denies: Hx Diabetes Mellitus Type 1, Hx Diabetes Mellitus Type 2 Renal/ Medical History: Denies: Hx Peritoneal Dialysis Musculoskeletal Medical History: Reports Hx Musculoskeletal Deformity - right hip avascular necrosis Psychiatric Medical History: Denies: Hx Depression Past Surgical History: Reports: Hx Appendectomy, Hx Vascular Surgery - L port placement - Immunizations Immunizations up to date: Yes Hx Diphtheria, Pertussis, Tetanus Vaccination: Yes Hx Pneumococcal Vaccination: 02/20/11 Review of Systems - Review of Systems Constitutional: No symptoms reported EENT: No symptoms reported Cardiovascular: See HPI Respiratory: No symptoms reported Gastrointestinal: No symptoms reported Genitourinary: No symptoms reported Male Genitourinary: No symptoms reported Musculoskeletal: See HPI Skin: No symptoms reported Hematologic/Lymphatic: See HPI Neurological/Psychological: No symptoms reported Physical Exam - Vital signs Vitals: Temp Pulse Resp BP Pulse Ox 98.1 F 63 14 127/83 H 99 01/22/18 23:35 01/22/18 23:35 01/22/18 23:35 01/22/18 23:35 01/22/18 23:35 - General General appearance: Appears well In distress: None - Respiratory Respiratory status: No respiratory distress Chest status: Tender - Right side, radiates to right shoulder - Cardiovascular Rhythm: Regular Heart sounds: Normal auscultation Pulses: Normal: Radial, Dorsalis pedis - Abdominal Inspection: Normal Distension: No distension Tenderness: Nontender - Extremities General upper extremity: Normal inspection General lower extremity: Normal inspection Course - Re-evaluation Re-evalutation: 01/23/18 02:30 Patient's and chest x-ray have been reviewed. I do not suspect acute chest syndrome or aplastic crisis at this time. According to the patient , oxygen helps with his chest pain during his sickle cell crises. He is currently on 2 L nasal cannula with an oxygen saturation of 100%. 01/23/18 03:15 Hemoglobin is stable at this time, no significant change in reticulocyte count, and no hemolysis noted on patient's bilirubin levels. 01/23/18 04:04 Patient states his pain has been relieved after 2 doses of hydromorphone IV. He denies any chest pain at this moment. He is stable for discharge home. - Vital Signs Vital signs: Temp Pulse Resp BP Pulse Ox 98.3 F 63 12 117/80 97 01/23/18 04:01 01/22/18 23:35 01/23/18 04:01 01/23/18 04:01 01/23/18 04:01 - Laboratory Result Diagrams: 01/23/18 00:35 01/23/18 00:35 Laboratory results interpreted by me: 01/23/18 01/23/18 00:35 00:35 RBC 2.43 L Hgb 9.0 L Hct 25.9 L MCV 107 H MCH 37.3 H RDW 18.8 H Plt Count 142 L Seg Neuts % (Manual) 36 L Lymphocytes % (Manual) 51 H Retic Count (auto) 6.87 H Absolute Retic 0.167 H Potassium 3.4 L Glucose 114 H Calcium 8.3 L Total Bilirubin 1.7 H Direct Bilirubin 0.5 H Discharge - Discharge Clinical Impression: Sickle cell crisis, Sickle cell pain crisis Condition: Stable Disposition: HOME, SELF-CARE Additional Instructions: You have been seen today for a sickle cell crisis. Your labs and chest x-ray are unremarkable today. 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 If you feel your pain is getting worse, develop more chest pain, develop a fever, or have any symptoms that are worrisome to you, please return to the emergency department immediately.
[2018-01-23 00:59] LABS: ABSOLUTE RETICS # 0.167 10^6/uL (0.028-0.122); HEMATOCRIT 25.9 % (37.9-51.0); MEAN CORPUSCULAR HEMOGLOBIN 37.3 pg (27.0-33.4); MEAN CORPUSCULAR HGB CONC 34.9 g/dL (32.0-36.0); MEAN CORPUSCULAR VOLUME 107 fl (80-97); PLATELET COUNT 142 10^3/uL (150-450); RED BLOOD COUNT 2.43 10^6/uL (4.35-5.55); RED CELL DISTRIBUTION WIDTH 18.8 % (11.5-14.0); RETICULOCYTE COUNT (AUTO) 6.87 % (0.66-2.85); WHITE BLOOD COUNT 4.9 10^3/uL (4.0-10.5)
[2018-01-23 01:03] LABS: ALANINE AMINOTRANSFERASE 22 U/L (21-72); ALBUMIN 3.9 g/dL (3.5-5.0); ALKALINE PHOSPHATASE 60 U/L (38-126); ANION GAP 7 (5-19); ASPARTATE AMINO TRANSFERASE 24 U/L (17-59); BILIRUBIN,DIRECT 0.5 mg/dL (0.0-0.4); BILIRUBIN,TOTAL 1.7 mg/dL (0.2-1.3); BLOOD UREA NITROGEN 9 mg/dL (7-20); CALCIUM 8.3 mg/dL (8.4-10.2); CARBON DIOXIDE 27 mmol/L (22-30); CHLORIDE 106 mmol/L (98-107); GLUCOSE 114 mg/dL (75-110); POTASSIUM 3.4 mmol/L (3.6-5.0); SODIUM 140.2 mmol/L (137-145); TOTAL PROTEIN 7.4 g/dL (6.3-8.2)
[2018-01-23] MEDS ORDERED: HYDROMORPHONE HCL INJ/PF 2 MG/ML AMPULE IV ONE ×2 (01:08→02:19)
[2018-01-23] MEDS: DIPHENHYDRAMINE HCL 50 MG CAPSULE PO ONE ×2 (01:14→02:21)
[2018-01-23 01:22] LABS: ABSOLUTE LYMPHOCYTES# (MANUAL) 2.5 10^3/uL (0.5-4.7); ABSOLUTE MONOCYTES # (MANUAL) 0.5 10^3/uL (0.1-1.4); ABSOLUTE NEUTROPHILS# (MANUAL) 1.8 10^3/uL (1.7-8.2); BASOPHILS % (MANUAL) 2 % (0-2); EOSINOPHILS % (MANUAL) 1 % (0-6); LYMPHOCYTES % (MANUAL) 51 % (13-45); MONOCYTES % (MANUAL) 10 % (3-13); NUCLEATED RED BLOOD CELLS 4 /100 WBC (0); SEGMENTED NEUTROPHILS % (MAN) 36 % (42-78); TOTAL CELLS COUNTED 100
[2018-01-23 01:23] LABS: ANISOCYTOSIS 2+; PLATELET COMMENT DECREASED; PLATELET LARGE PRESENT; SICKLE RED CELLS SLIGHT
[2018-01-23 01:24] LABS: POLYCHROMASIA SLIGHT
[2018-01-23 01:26] LABS: POIKILOCYTOSIS 2+; TARGET CELLS 2+
[2018-01-23 01:27] LABS: OVALOCYTES SLIGHT
--- NOTE | 2018-01-23 01:28 | RADIOLOGY REPORT (SQ) ---
EXAM DESCRIPTION: XR CHEST 1 VIEW COMPLETED DATE/TME: 01/23/2018 00:13 CLINICAL HISTORY: Chest pain COMPARISON: 01/21/2018 FINDINGS: Single frontal view of the chest. Cardiac mediastinal silhouette is stable. Left IJ Mediport stable. No acute consolidation, pneumothorax, or pleural effusion. Chronic interstitial opacities in the lung bases are stable. Low lung volumes. No displaced rib fractures identified. Upper abdominal soft tissues are unremarkable. IMPRESSION: 1. Chronic appearing interstitial opacities in the lung bases are stable. No definite acute pneumonic process identified.
[2018-01-23 04:29] VITALS: BP 117/80
--- NOTE | 2018-01-23 08:55 | EKG REPORT ---
SEVERITY:- ABNORMAL ECG - SINUS RHYTHM LEFT VENTRICULAR HYPERTROPHY ANTERIOR Q WAVES, POSSIBLY DUE TO LVH : Confirmed by: Enedina Traylor 23-Jan-2018 08:55:33
== END 2018-01-23 04:30 | disposition home or self-care (01) ==
LOC: ER 23:24
DX: D57.00 Hb-SS disease with crisis, unspecified (principal); R07.9 Chest pain, unspecified; Z79.891 Long term (current) use of opiate analgesic; Z79.899 Other long term (current) drug therapy; Z88.8 Allergy status to other drugs, medicaments and biological substances; Z88.1 Allergy status to other antibiotic agents; Z88.5 Allergy status to narcotic agent; Z88.0 Allergy status to penicillin; Z91.040 Latex allergy status
CPT/HCPCS: 93005; 36591; 96376; 99285; 96374; 36415; 85025; 85045; 80053; 84484; 71045; 93010; A9270; J1170

== ENCOUNTER 2018-01-31 00:16 | Emergency (ER) | payer MEDICARE, MEDICAID ==
[2018-01-31] MEDS ORDERED: HYDROMORPHONE HCL INJ/PF 2 MG/ML AMPULE IV PRN ×2 (00:43→03:34)
[2018-01-31] MEDS ORDERED: DIPHENHYDRAMINE HCL 25 MG CAPSULE PO ONE (01:04)
--- NOTE | 2018-01-31 01:07 | ER Document Report ---
ED General - General Chief Complaint: Sickle Cell Crisis Stated Complaint: BODY PAIN Time Seen by Provider: 01/31/18 00:38 Notes: Patient is a 37-year-old male with a past medical history of sickle cell anemia who presents with an acute sickle cell pain crisis. The patient describes diffuse joint pain that has been ongoing for the past 48 hours. Describes as an aching, throbbing, severe pain. He has tried home oxycodone without any relief. Nothing worsens or triggers the symptoms. He states this feels identical to prior sickle cell exacerbations that he has had in the past. He denies any fever, shortness of breath, chest pain, headache or altered mental status. He has not spoken to his insurance sales agent regarding today's concerns. TRAVEL OUTSIDE OF THE [place] IN LAST 30 DAYS: No - Related Data Allergies/Adverse Reactions: famotidine [From Pepcid] Allergy (Severe, Verified 01/31/18 02:44) Anaphylaxis ketorolac tromethamine [From Toradol] Allergy (Severe, Verified 01/31/18 02:44) levofloxacin [From Levaquin] Allergy (Severe, Verified 01/31/18 02:44) meperidine HCl [From Demerol] Allergy (Severe, Verified 01/31/18 02:44) morphine [Morphine] Allergy (Severe, Verified 01/31/18 02:44) tramadol HCl [From Ultram] Allergy (Severe, Verified 01/31/18 02:44) amoxicillin [Amoxicillin] Allergy (Verified 01/31/18 02:44) fentanyl [Fentanyl] Allergy (Verified 01/31/18 02:44) latex [Latex] Allergy (Verified 01/31/18 02:44) ondansetron HCl [From Zofran] Allergy (Verified 01/31/18 02:44) Past Medical History - General Information source: Patient - Social History Smoking Status: Never Smoker Frequency of alcohol use: None Drug Abuse: None Lives with: Family Family History: Reviewed & Not Pertinent, Other - Past Medical History Cardiac Medical History: Denies: Hx Atrial Fibrillation, Hx Congestive Heart Failure, Hx Coronary Artery Disease Pulmonary Medical History: Denies: Hx Bronchitis, Hx Tuberculosis Neurological Medical History: Reports: Hx Seizures Endocrine Medical History: Denies: Hx Diabetes Mellitus Type 1, Hx Diabetes Mellitus Type 2 Renal/ Medical History: Denies: Hx Peritoneal Dialysis Musculoskeletal Medical History: Reports Hx Musculoskeletal Deformity - right hip avascular necrosis Psychiatric Medical History: Denies: Hx Depression Past Surgical History: Reports: Hx Appendectomy, Hx Vascular Surgery - L port placement - Immunizations Immunizations up to date: Yes Hx Diphtheria, Pertussis, Tetanus Vaccination: Yes Hx Pneumococcal Vaccination: 02/20/11 Review of Systems - Review of Systems Notes: Constitutional: Negative for fever. HENT: Negative for sore throat. Eyes: Negative for visual changes. Cardiovascular: Negative for chest pain. Respiratory: Negative for shortness of breath. Gastrointestinal: Negative for abdominal pain, vomiting or diarrhea. Genitourinary: Negative for dysuria. Musculoskeletal: Positive for diffuse joint pain Skin: Negative for rash. Neurological: Negative for headaches, weakness or numbness. 10 point ROS negative except as marked above and in HPI. Physical Exam - Vital signs Vitals: Temp Pulse Resp BP Pulse Ox 98.4 F 60 18 123/76 98 01/31/18 00:21 01/31/18 00:21 01/31/18 00:21 01/31/18 00:21 01/31/18 00:21 Interpretation: Normal Notes: PHYSICAL EXAMINATION: GENERAL: Well-appearing, well-nourished and in no acute distress. HEAD: Atraumatic, normocephalic. EYES: Pupils equal round and reactive to light, extraocular movements intact, sclera anicteric, conjunctiva are normal. ENT: nares patent, oropharynx clear without exudates. Moist mucous membranes. NECK: Normal range of motion, supple without lymphadenopathy LUNGS: Breath sounds clear to auscultation bilaterally and equal. No wheezes rales or rhonchi. HEART: Regular rate and rhythm without murmurs ABDOMEN: Soft, nontender, normoactive bowel sounds. No guarding, no rebound. No masses appreciated. EXTREMITIES: Normal range of motion, no pitting or edema. No cyanosis. NEUROLOGICAL: No focal neurological deficits. Moves all extremities spontaneously and on command. PSYCH: Normal mood, normal affect. SKIN: Warm, Dry, normal turgor, no rashes or lesions noted. Course - Re-evaluation Re-evalutation: 01/31/18 01:07 Presentation is most consistent with an uncomplicated sickle cell pain crisis. Patient has no evidence of an aplastic crisis on labs. History and vitals are not consistent with acute chest syndrome. Vitals have remained within normal limits here in the emergency department. Patient's pain has been able to be controlled using IV analgesia. The patient is agreeable to discharge home at this time. I recommended that they follow closely with their primary insurance sales agent. At this time will discharge with return precautions and follow- up recommendations. Verbal discharge instructions given a the bedside and opportunity for questions given. Medication warnings reviewed. Patient is in agreement with this plan and has verbalized understanding of return precautions and the need for primary care follow-up in the next 24-72 hours. - Vital Signs Vital signs: Temp Pulse Resp BP Pulse Ox 98.4 F 60 18 123/76 98 01/31/18 00:21 01/31/18 00:21 01/31/18 00:21 01/31/18 00:21 01/31/18 00:21 - Laboratory Result Diagrams: 01/31/18 02:25 01/31/18 02:25 Laboratory results interpreted by me: 01/31/18 02:25 RBC 2.53 L Hgb 9.5 L Hct 26.8 L MCV 106 H MCH 37.4 H RDW 17.9 H Seg Neuts % (Manual) 39 L Retic Count (auto) 7.32 H Absolute Retic 0.185 H Discharge - Discharge Clinical Impression: Sickle cell crisis Joint pain Qualifiers: Joint pain location: unspecified Qualified Code(s): M25.50 - Pain in unspecified joint Condition: Good Disposition: HOME, SELF-CARE Additional Instructions: You were seen today for sickle cell pain crisis. Please follow-up with your insurance sales agent. Returning to the ED if you have worsening pain, fever greater than 100.4, shortness of breath, persistent vomiting, or any other symptoms that are concerning to you.
[2018-01-31 02:44] LABS: ANION GAP 7 (5-19); BLOOD UREA NITROGEN 11 mg/dL (7-20); CALCIUM 8.7 mg/dL (8.4-10.2); CARBON DIOXIDE 28 mmol/L (22-30); CHLORIDE 106 mmol/L (98-107); GLUCOSE 104 mg/dL (75-110); POTASSIUM 3.7 mmol/L (3.6-5.0)
[2018-01-31 02:48] LABS: ABSOLUTE RETICS # 0.185 10^6/uL (0.028-0.122); HEMATOCRIT 26.8 % (37.9-51.0); HEMOGLOBIN 9.5 g/dL (13.5-17.0); MEAN CORPUSCULAR HEMOGLOBIN 37.4 pg (27.0-33.4); MEAN CORPUSCULAR HGB CONC 35.3 g/dL (32.0-36.0); MEAN CORPUSCULAR VOLUME 106 fl (80-97); PLATELET COUNT 417 10^3/uL (150-450); RED BLOOD COUNT 2.53 10^6/uL (4.35-5.55); RED CELL DISTRIBUTION WIDTH 17.9 % (11.5-14.0); RETICULOCYTE COUNT (AUTO) 7.32 % (0.66-2.85); WHITE BLOOD COUNT 5.1 10^3/uL (4.0-10.5)
[2018-01-31 03:14] LABS: ABSOLUTE LYMPHOCYTES# (MANUAL) 2.3 10^3/uL (0.5-4.7); ABSOLUTE MONOCYTES # (MANUAL) 0.7 10^3/uL (0.1-1.4); BASOPHILS % (MANUAL) 1 % (0-2); EOSINOPHILS % (MANUAL) 2 % (0-6); LYMPHOCYTES % (MANUAL) 45 % (13-45); MONOCYTES % (MANUAL) 13 % (3-13); NUCLEATED RED BLOOD CELLS 1 /100 WBC (0); SEGMENTED NEUTROPHILS % (MAN) 39 % (42-78); TOTAL CELLS COUNTED 100
[2018-01-31 03:15] LABS: ANISOCYTOSIS 1+; HOWELL-JOLLY BODIES PRESENT; OVALOCYTES 1+; POIKILOCYTOSIS 2+; POLYCHROMASIA 1+; SCHISTOCYTES 1+; SICKLE RED CELLS SLIGHT; TARGET CELLS 2+; TOXIC GRANULATION 1+
[2018-01-31 03:16] LABS: PLATELET COMMENT ADEQUATE; PLATELET GIANT PRESENT; PLATELET LARGE PRESENT
[2018-01-31] MEDS ORDERED: HYDROMORPHONE HCL INJ/PF 2 MG/ML AMPULE IV ONE (03:34)
[2018-01-31 05:34] VITALS: BP 110/66
== END 2018-01-31 06:21 | disposition home or self-care (01) ==
LOC: ER 00:16
DX: D57.00 Hb-SS disease with crisis, unspecified (principal); M25.50 Pain in unspecified joint; Z88.8 Allergy status to other drugs, medicaments and biological substances; Z88.1 Allergy status to other antibiotic agents; Z88.5 Allergy status to narcotic agent; Z88.0 Allergy status to penicillin; Z91.040 Latex allergy status
CPT/HCPCS: 36591; 96376; 99284; 96374; 36415; 85025; 85045; 80048; A9270; J1170

== ENCOUNTER 2018-02-15 00:53 | Emergency (ER) | payer MEDICARE, MEDICAID ==
[2018-02-15] MEDS ORDERED: NORMAL SALINE 1000 ML 1,000 ML IV ONE ×2 (01:36→03:29)
[2018-02-15] MEDS ORDERED: DIPHENHYDRAMINE HCL 50 MG/ML VIAL IV ONE ×2 (01:37→03:29)
[2018-02-15] MEDS ORDERED: HYDROMORPHONE HCL INJ/PF 2 MG/ML AMPULE IV ONE ×4 (01:38→04:39)
--- NOTE | 2018-02-15 01:43 | ER Document Report ---
ED General - General Chief Complaint: Sickle Cell Crisis Stated Complaint: SICKLE CELL CRISIS Time Seen by Provider: 02/15/18 01:32 Notes: Patient is a 37-year-old male with history of sickle cell disease who is followed by hematology at [facility]. He presents with complaint of joint pain. He also has body aches. Says pain feels very similar to his previous sickle cell pain. No chest pain or shortness of breath. He still has a spleen. He still has his gallbladder. No fevers. No vomiting. Symptoms been ongoing for approximately 2 days. He does have a port in left upper chest which he says is been working well. He has not noticed any redness or swelling anywhere on his skin or body. Mild abdominal pain. No chest pain. Mild headache. No other complaints at this time. Have previous history of acute chest syndrome. Last time he had acute chest syndrome was when he was 20 years old. TRAVEL OUTSIDE OF THE [place] IN LAST 30 DAYS: No - Related Data Allergies/Adverse Reactions: famotidine [From Pepcid] Allergy (Severe, Verified 02/15/18 00:55) Anaphylaxis ketorolac tromethamine [From Toradol] Allergy (Severe, Verified 02/15/18 00:55) levofloxacin [From Levaquin] Allergy (Severe, Verified 02/15/18 00:55) meperidine HCl [From Demerol] Allergy (Severe, Verified 02/15/18 00:55) morphine [Morphine] Allergy (Severe, Verified 02/15/18 00:55) tramadol HCl [From Ultram] Allergy (Severe, Verified 02/15/18 00:55) amoxicillin [Amoxicillin] Allergy (Verified 02/15/18 00:55) fentanyl [Fentanyl] Allergy (Verified 02/15/18 00:55) latex [Latex] Allergy (Verified 02/15/18 00:55) ondansetron HCl [From Zofran] Allergy (Verified 02/15/18 00:55) Past Medical History - Social History Smoking Status: Unknown if Ever Smoked Frequency of alcohol use: None Drug Abuse: None Family History: Reviewed & Not Pertinent, Other - Past Medical History Cardiac Medical History: Denies: Hx Atrial Fibrillation, Hx Congestive Heart Failure, Hx Coronary Artery Disease Pulmonary Medical History: Denies: Hx Bronchitis, Hx Tuberculosis Neurological Medical History: Reports: Hx Seizures Endocrine Medical History: Denies: Hx Diabetes Mellitus Type 1, Hx Diabetes Mellitus Type 2 Renal/ Medical History: Denies: Hx Peritoneal Dialysis Musculoskeletal Medical History: Reports Hx Musculoskeletal Deformity - right hip avascular necrosis Psychiatric Medical History: Denies: Hx Depression Past Surgical History: Reports: Hx Appendectomy, Hx Vascular Surgery - L port placement - Immunizations Immunizations up to date: Yes Hx Diphtheria, Pertussis, Tetanus Vaccination: Yes Hx Pneumococcal Vaccination: 02/20/11 Review of Systems - Review of Systems Notes: My Normal Review Basic REVIEW OF SYSTEMS: CONSTITUTIONAL : Denies fever, chills, or sweats. Denies recent illness. EENT: Denies eye, ear, throat, or mouth pain or symptoms. Denies nasal or sinus congestion. CARDIOVASCULAR: Denies chest pain. RESPIRATORY: Denies cough, cold, or chest congestion. Denies shortness of breath, difficulty breathing, or wheezing. GASTROINTESTINAL: Mild generalized abdominal pain. Denies nausea, vomiting, or diarrhea. GENITOURINARY: Denies difficulty urinating, painful urination, burning, frequency, or blood in urine. MUSCULOSKELETAL: Aches and joint pain SKIN: Denies rash or skin lesions. NEUROLOGICAL: Denies altered mental status or loss of consciousness. Mild headache. Denies weakness or paralysis or loss of use of either side. Denies problems with gait or speech. Denies sensory or motor loss. ALL OTHER SYSTEMS REVIEWED AND NEGATIVE. Physical Exam - Vital signs Vitals: Temp Pulse Resp BP Pulse Ox 98.6 F 67 16 123/78 96 02/15/18 00:58 02/15/18 00:58 02/15/18 00:58 02/15/18 00:58 02/15/18 00:58 - Notes Notes: General Appearance: Well nourished, alert, cooperative, no acute distress, moderate obvious discomfort. Vitals: reviewed, See vital signs table. Head: no swelling or tenderness to the head Eyes: PERRL, EOMI, Conjuctiva clear Mouth: No decreasd moisture Throat: No tonsillar inflammation, No airway obstruction, No lymphadenopathy Neck: Supple, no neck tenderness Lungs: No wheezing, No rales, No rhonci, No accessory muscle use, good air exchange bilaterally. Heart: Normal rate, Regular rythm, No murmur, no rub Abdomen: Normal BS, soft, No rigidity, no reproducible abdominal tenderness to palpation., No guarding, no rebound, no abdominal masses, no organomegaly Extremities: strength 5/5 in all extremities, good pulses in all extremities, no redness or swelling to any patient's joints on exam. Skin: warm, dry, appropriate color, no rash Neuro: speech clear, oriented x 3, normal affect, responds appropriately to questions. Cranial nerves II through XII are intact. Patient able move all 4 extremities without difficulty. Course - Re-evaluation Re-evalutation: 02/15/18 04:39 Patient continues to improve. He says headache is now gone. He says he still has a bit of joint pain. No abdominal pain at this time. I asked him if he feels good to go home or if he feels that he needs to stay. Patient says he does not yet want to be admitted to the hospital. He says he wants to wait a little bit longer to see if we can resolve the rest of his pain. If so then he would like to go home. For unable to get his pain under good of control then he will likely be admitted. We will give another dose of pain medicine and reassess. 02/15/18 05:39 At this time patient has received 4 doses of pain medicine. Informed patient at this time that if he still having pain then is best to admit him being that his pain has recurrence of his pain medicine. Patient says that his pain is actually doing a lot better and he prefers not to stay in the hospital and prefers to go home. His vital signs are good. His cell counts are actually better than they have been in the past. I informed him from a laboratory standpoint he is safe to go home and also clinically appears well. However, if he feels that he is worsening any way or has intractable pain not controlled by his pain medicine at home he must return to ER immediately. Also if he develops fevers, chest pain, difficulty breathing he must return to ER immediately. Patient agrees with plan and will be discharged home. Dictation of this chart was performed using voice recognition software; therefore, there may be some unintended grammatical errors. - Vital Signs Vital signs: Temp Pulse Resp BP Pulse Ox 98.6 F 67 16 151/86 H 100 02/15/18 00:58 02/15/18 00:58 02/15/18 00:58 02/15/18 04:01 02/15/18 04:01 - Laboratory Result Diagrams: 02/15/18 02:00 02/15/18 02:00 Laboratory results interpreted by me: 02/15/18 02/15/18 02/15/18 02:00 02:00 04:05 RBC 2.83 L Hgb 10.1 L Hct 29.4 L MCV 104 H MCH 35.7 H RDW 17.3 H Retic Count (auto) 4.34 H Absolute Retic 0.123 H Total Bilirubin 2.2 H Direct Bilirubin 0.5 H Urine Urobilinogen 2.0 H Urine Ascorbic Acid 20 H Discharge - Discharge Clinical Impression: Sickle cell crisis Condition: Good Disposition: HOME, SELF-CARE Additional Instructions: Please follow-up with your abstractor. Please call their office to make a close follow-up appointment on Saturday. Please have a low threshold to return to the ER if you have chest pain, difficulty breathing, fevers, abdominal pain, or intractable pain.
[2018-02-15 02:24] LABS: ABSOLUTE RETICS # 0.123 10^6/uL (0.028-0.122); HEMATOCRIT 29.4 % (37.9-51.0); HEMOGLOBIN 10.1 g/dL (13.5-17.0); MEAN CORPUSCULAR HEMOGLOBIN 35.7 pg (27.0-33.4); MEAN CORPUSCULAR HGB CONC 34.4 g/dL (32.0-36.0); MEAN CORPUSCULAR VOLUME 104 fl (80-97); PLATELET COUNT 301 10^3/uL (150-450); RED BLOOD COUNT 2.83 10^6/uL (4.35-5.55); RED CELL DISTRIBUTION WIDTH 17.3 % (11.5-14.0); RETICULOCYTE COUNT (AUTO) 4.34 % (0.66-2.85); WHITE BLOOD COUNT 7.7 10^3/uL (4.0-10.5)
[2018-02-15 02:42] LABS: ABSOLUTE LYMPHOCYTES# (MANUAL) 1.9 10^3/uL (0.5-4.7); ABSOLUTE MONOCYTES # (MANUAL) 0.5 10^3/uL (0.1-1.4); ABSOLUTE NEUTROPHILS# (MANUAL) 5.2 10^3/uL (1.7-8.2); BASOPHILS % (MANUAL) 0 % (0-2); EOSINOPHILS % (MANUAL) 0 % (0-6); LYMPHOCYTES % (MANUAL) 23 % (13-45); MONOCYTES % (MANUAL) 7 % (3-13); NUCLEATED RED BLOOD CELLS 2 /100 WBC (0); SEGMENTED NEUTROPHILS % (MAN) 68 % (42-78); TOTAL CELLS COUNTED 100
[2018-02-15 02:45] LABS: ANISOCYTOSIS 2+; HOWELL-JOLLY BODIES PRESENT; PLATELET COMMENT ADEQUATE; POIKILOCYTOSIS 1+; POLYCHROMASIA SLIGHT; SICKLE RED CELLS 1+; TARGET CELLS SLIGHT; TEAR DROP CELLS SLIGHT
[2018-02-15 03:11] LABS: ALANINE AMINOTRANSFERASE 21 U/L (21-72); ALBUMIN 4.3 g/dL (3.5-5.0); ALKALINE PHOSPHATASE 74 U/L (38-126); ANION GAP 12 (5-19); ASPARTATE AMINO TRANSFERASE 42 U/L (17-59); BILIRUBIN,DIRECT 0.5 mg/dL (0.0-0.4); BILIRUBIN,TOTAL 2.2 mg/dL (0.2-1.3); BLOOD UREA NITROGEN 12 mg/dL (7-20); CALCIUM 8.9 mg/dL (8.4-10.2); CARBON DIOXIDE 27 mmol/L (22-30); CHLORIDE 104 mmol/L (98-107); GLUCOSE 105 mg/dL (75-110); POTASSIUM 3.8 mmol/L (3.6-5.0); SODIUM 142.5 mmol/L (137-145); TOTAL PROTEIN 8.1 g/dL (6.3-8.2)
[2018-02-15 04:31] LABS: APPEARANCE,URINE CLEAR; BILIRUBIN,URINE NEGATIVE (NEGATIVE); COLOR,URINE YELLOW; GLUCOSE, URINE NEGATIVE (NEGATIVE); KETONES,URINE NEGATIVE (NEGATIVE); LEUKOCYTE ESTERASE,URINE NEGATIVE (NEGATIVE); NITRITE,URINE NEGATIVE (NEGATIVE); PROTEIN,URINE NEGATIVE (NEGATIVE); URINE SPECIFIC GRAVITY 1.012
[2018-02-15 06:17] VITALS: BP 130/92
== END 2018-02-15 06:48 | disposition home or self-care (01) ==
LOC: ER 00:53
DX: D57.00 Hb-SS disease with crisis, unspecified (principal); R10.84 Generalized abdominal pain; M25.50 Pain in unspecified joint; R51 Headache; Z88.8 Allergy status to other drugs, medicaments and biological substances; Z88.1 Allergy status to other antibiotic agents; Z88.5 Allergy status to narcotic agent; Z88.0 Allergy status to penicillin; Z91.040 Latex allergy status; Z90.49 Acquired absence of other specified parts of digestive tract
CPT/HCPCS: 96376; 99284; 96361; 96374; 96375; 36415; 85025; 85045; 80053; 81001; J1200; J1170; J7030

== ENCOUNTER 2018-02-16 01:10 | Emergency (ER) | payer MEDICARE, MEDICAID ==
[2018-02-16] MEDS ORDERED: ONDANSETRON HCL INJ/PF 4 MG/2 ML SDV IV ONE (02:30)
[2018-02-16] MEDS ORDERED: HYDROMORPHONE HCL INJ/PF 2 MG/ML AMPULE IV ONE ×4 (02:30→06:22)
[2018-02-16] MEDS ORDERED: DIPHENHYDRAMINE HCL 25 MG CAPSULE PO ONE (02:30)
--- NOTE | 2018-02-16 02:33 | ER Document Report ---
ED General - General Chief Complaint: Sickle Cell Crisis Stated Complaint: BODY PAIN Time Seen by Provider: 02/16/18 02:22 Notes: Patient is a 37-year-old male with a history of sickle cell anemia that comes congestion, cough, mild intermittent pain in the chest, and joint pains throughout. He states his been hurting this way for 2-3 days. He denies fever. He denies difficulty breathing. He states he has been taking her medications without relief. He follows with [facility] hematology. Medications at home include folic acid, hydroxyurea, hydromorphone, Benadryl. TRAVEL OUTSIDE OF THE [place] IN LAST 30 DAYS: No - Related Data Allergies/Adverse Reactions: famotidine [From Pepcid] Allergy (Severe, Verified 02/15/18 00:55) Anaphylaxis ketorolac tromethamine [From Toradol] Allergy (Severe, Verified 02/15/18 00:55) levofloxacin [From Levaquin] Allergy (Severe, Verified 02/15/18 00:55) meperidine HCl [From Demerol] Allergy (Severe, Verified 02/15/18 00:55) morphine [Morphine] Allergy (Severe, Verified 02/15/18 00:55) tramadol HCl [From Ultram] Allergy (Severe, Verified 02/15/18 00:55) amoxicillin [Amoxicillin] Allergy (Verified 02/15/18 00:55) fentanyl [Fentanyl] Allergy (Verified 02/15/18 00:55) latex [Latex] Allergy (Verified 02/15/18 00:55) ondansetron HCl [From Zofran] Allergy (Verified 02/15/18 00:55) Past Medical History - General Information source: Patient - Social History Smoking Status: Never Smoker Drug Abuse: None Lives with: Family Family History: Reviewed & Not Pertinent, Other - Past Medical History Cardiac Medical History: Denies: Hx Atrial Fibrillation, Hx Congestive Heart Failure, Hx Coronary Artery Disease Pulmonary Medical History: Denies: Hx Bronchitis, Hx Tuberculosis Neurological Medical History: Reports: Hx Seizures Endocrine Medical History: Denies: Hx Diabetes Mellitus Type 1, Hx Diabetes Mellitus Type 2 Renal/ Medical History: Denies: Hx Peritoneal Dialysis Musculoskeletal Medical History: Reports Hx Musculoskeletal Deformity - right hip avascular necrosis Psychiatric Medical History: Denies: Hx Depression Past Surgical History: Reports: Hx Appendectomy, Hx Vascular Surgery - L port placement - Immunizations Immunizations up to date: Yes Hx Diphtheria, Pertussis, Tetanus Vaccination: Yes Hx Pneumococcal Vaccination: 02/20/11 Review of Systems - Review of Systems Constitutional: See HPI EENT: See HPI Cardiovascular: No symptoms reported Respiratory: See HPI Gastrointestinal: No symptoms reported Genitourinary: No symptoms reported Male Genitourinary: No symptoms reported Musculoskeletal: See HPI Skin: No symptoms reported Hematologic/Lymphatic: See HPI Neurological/Psychological: No symptoms reported Physical Exam - Vital signs Vitals: Temp Pulse Resp BP Pulse Ox 98.5 F 64 18 146/90 H 95 02/16/18 01:20 02/16/18 01:20 02/16/18 01:20 02/16/18 01:20 02/16/18 01:20 - Notes Notes: GENERAL: Alert, interacts well. No acute distress. HEAD: Normocephalic, atraumatic. EYES: Pupils equal, round, and reactive to light. Extraocular movements intact. ENT: Oral mucosa moist, tongue midline. Oropharynx unremarkable. Airway patent. Nasal congestion noted, no nasal septal hematoma, TM's intact. NECK: Full range of motion. Supple. Trachea midline. LUNGS: Clear to auscultation bilaterally, no wheezes, rales, or rhonchi. No respiratory distress. HEART: Regular rate and rhythm. No murmur ABDOMEN: Soft, non-tender. Non-distended. Bowel sounds present in all 4 quadrants. GENITOURINARY: Deferred EXTREMITIES: Moves all 4 extremities spontaneously. No edema, normal radial and dorsalis pedis pulses bilaterally. No cyanosis. BACK: no cervical, thoracic, lumbar midline tenderness. No saddle anesthesia, normal distal neurovascular exam. NEUROLOGICAL: Alert and oriented x3. Normal speech. [cranial nerves II through XII grossly intact]. PSYCH: Normal affect, normal mood. SKIN: Warm, dry, normal turgor. No rashes or lesions noted. Course - Re-evaluation Re-evalutation: CBC shows hemoglobin of 9.5, no significant change from previous with repeated blood draws. No leukocytosis. No significant change in reticulocyte count. Chemistry is unremarkable. Indirect bilirubin is actually lower than yesterday , does not suggest severe sickling. No tachycardia, hypoxia, fever, or signs of distress on evaluation. Chest x-ray is unremarkable. Patient with clear lung sounds and no tachypnea on exam. 10/28/18 After pain medication doses and benadryl patient began to improve. He states he feels significantly better afterwards. Discussed admission because of frequent recent visits versus followup at treatment at home. Patient states he would prefer to go home and followup with his label folder. He has medications at home (he now states they are methadone and percocet). Discussed return precautions. Patient states understanding and agreement. - Vital Signs Vital signs: Temp Pulse Resp BP Pulse Ox 98.5 F 64 18 145/98 H 100 02/16/18 01:20 02/16/18 01:20 02/16/18 01:20 02/16/18 05:01 02/16/18 05:01 - Laboratory Result Diagrams: 02/16/18 03:10 02/16/18 03:10 Laboratory results interpreted by me: 02/16/18 02/16/18 03:10 03:10 RBC 2.63 L Hgb 9.5 L Hct 26.9 L MCV 102 H MCH 36.1 H RDW 18.1 H Seg Neutrophils % 41.2 L Monocytes % 16.6 H Basophils % 2.3 H Retic Count (auto) 5.36 H Absolute Retic 0.141 H Total Bilirubin 1.8 H Direct Bilirubin 0.5 H AST 72 H Discharge - Discharge Clinical Impression: Sickle cell crisis Joint pain Qualifiers: Joint pain location: unspecified Qualified Code(s): M25.50 - Pain in unspecified joint Condition: Stable Additional Instructions: You have been evaluated here for pain related to sickle cell crisis. Your workup does not show any concerning significant change from prior. Rest, stay hydrated, take your current medications, follow-up with your label folder on Saturday. Return if you worsen including fever of 100.4 greater, vomiting, difficulty breathing, or any other concerning or worsening symptoms.
--- NOTE | 2018-02-16 03:05 | RADIOLOGY REPORT (SQ) ---
Chest 2 view on 02/16/2018 at 2:47 AM CLINICAL INDICATION: Chest pain, cough, sickle cell disease COMPARISON: 01/23/2018 FINDINGS: Left IJ Port-A-Cath tip is in the SVC. Mild cardiomegaly is noted. There is minimal basilar atelectasis, scarring or chronic interstitial changes. The lungs are otherwise clear. Hilar and mediastinal contours are within normal limits. Pulmonary vascularity is within normal limits. IMPRESSION: No acute disease.
[2018-02-16] MEDS ORDERED: DIPHENHYDRAMINE HCL 50 MG/ML VIAL IV ONE ×2 (03:15→05:19)
[2018-02-16 03:25] LABS: ABSOLUTE BASOPHILS # (AUTO) 0.1 10^3/uL (0.0-0.2); ABSOLUTE EOSINOPHILS # (AUTO) 0.1 10^3/uL (0.0-0.6); ABSOLUTE LYMPHOCYTES (AUTO) 1.9 10^3/uL (0.5-4.7); ABSOLUTE MONOCYTES (AUTO) 0.8 10^3/uL (0.1-1.4); ABSOLUTE RETICS # 0.141 10^6/uL (0.028-0.122); BASOPHILS % (AUTO) 2.3 % (0-2); EOSINOPHILS % (AUTO) 1.7 % (0-6); HEMATOCRIT 26.9 % (37.9-51.0); HEMOGLOBIN 9.5 g/dL (13.5-17.0); LYMPHOCYTES % (AUTO) 38.2 % (13-45); MEAN CORPUSCULAR HEMOGLOBIN 36.1 pg (27.0-33.4); MEAN CORPUSCULAR HGB CONC 35.2 g/dL (32.0-36.0); MEAN CORPUSCULAR VOLUME 102 fl (80-97); MONOCYTES % (AUTO) 16.6 % (3-13); PLATELET COUNT 245 10^3/uL (150-450); RED BLOOD COUNT 2.63 10^6/uL (4.35-5.55); RED CELL DISTRIBUTION WIDTH 18.1 % (11.5-14.0); RETICULOCYTE COUNT (AUTO) 5.36 % (0.66-2.85); SEGMENTED NEUTROPHILS % (AUTO) 41.2 % (42-78); TOTAL CELLS COUNTED % (AUTO) 100 %; WHITE BLOOD COUNT 4.9 10^3/uL (4.0-10.5)
[2018-02-16 03:50] LABS: ANISOCYTOSIS 2+; HELMET CELLS 1+; OVALOCYTES 2+; POIKILOCYTOSIS 3+; POLYCHROMASIA SLIGHT; SICKLE RED CELLS 2+; TARGET CELLS 3+; TEAR DROP CELLS 2+
[2018-02-16 03:51] LABS: PLATELET COMMENT ADEQUATE
[2018-02-16 04:28] LABS: ALANINE AMINOTRANSFERASE 31 U/L (21-72); ALBUMIN 3.9 g/dL (3.5-5.0); ALKALINE PHOSPHATASE 92 U/L (38-126); ANION GAP 10 (5-19); ASPARTATE AMINO TRANSFERASE 72 U/L (17-59); BILIRUBIN,DIRECT 0.5 mg/dL (0.0-0.4); BILIRUBIN,TOTAL 1.8 mg/dL (0.2-1.3); BLOOD UREA NITROGEN 7 mg/dL (7-20); CALCIUM 8.5 mg/dL (8.4-10.2); CARBON DIOXIDE 28 mmol/L (22-30); CHLORIDE 106 mmol/L (98-107); GLUCOSE 85 mg/dL (75-110); POTASSIUM 3.8 mmol/L (3.6-5.0); SODIUM 144.1 mmol/L (137-145); TOTAL PROTEIN 7.6 g/dL (6.3-8.2)
[2018-02-16 06:28] VITALS: BP 148/97
== END 2018-02-16 06:43 | disposition home or self-care (01) ==
LOC: ER 01:10
DX: D57.00 Hb-SS disease with crisis, unspecified (principal); R07.9 Chest pain, unspecified; M25.50 Pain in unspecified joint; R05 Cough; R09.81 Nasal congestion; Z79.899 Other long term (current) drug therapy; Z79.891 Long term (current) use of opiate analgesic; Z88.8 Allergy status to other drugs, medicaments and biological substances; Z88.1 Allergy status to other antibiotic agents; Z88.5 Allergy status to narcotic agent; Z88.0 Allergy status to penicillin; Z91.040 Latex allergy status
CPT/HCPCS: 36591; 96376; 99284; 96374; 96375; 36415; 85025; 85045; 80053; 71046; J1200; J1170

== ENCOUNTER 2018-02-16 18:58 | Inpatient (IN) | payer MEDICARE, MEDICAID ==
[2018-02-16] MEDS ORDERED: HYDROMORPHONE HCL INJ/PF 2 MG/ML AMPULE IV ONE (19:11)
[2018-02-16] MEDS ORDERED: NORMAL SALINE 1000 ML 1,000 ML IV ONE (19:12)
--- NOTE | 2018-02-16 19:13 | ER Document Report ---
ED Medical Screen (RME) - General Chief Complaint: Sickle Cell Crisis Stated Complaint: BODY PAIN/FACIAL PAIN Time Seen by Provider: 02/16/18 19:08 Notes: Patient is a 37-year-old male with sickle cell disease that presents to the emergency department for chief complaint of generalized body aches and joint aching, and mild shortness of breath. ROS: Unless otherwise stated in this report the patient's positive and negative responses for review of systems for constitutional, eyes, ENT, cardiovascular, respiratory, gastrointestinal, neurological, genitourinary, musculoskeletal, and integumentary systems and related systems to the presenting problem are either as stated in the HPI or were not pertinent or were negative for the symptoms and/or complaints related to the presenting medical problem. PHYSICAL EXAMINATION: Vital signs reviewed. GENERAL: Well-appearing, well-nourished and appears uncomfortable. HEAD: Atraumatic, normocephalic. EYES: Pupils equal round extraocular movements intact, conjunctiva are normal. ENT: Nares patent NECK: Normal range of motion CV: Heart regular rate and rhythm LUNGS: No respiratory distress Musculoskeletal: Normal range of motion NEUROLOGICAL: Normal speech PSYCH: Normal mood, normal affect. MDM: Patient seen and examined for rapid initial assessment. Vital signs reviewed. A comprehensive ED assessment and evaluation of the patient, analysis of test results and completion of the medical decision making process will be conducted by additional ED providers. *Note is created using voice recognition software and may contain spelling, syntax or grammatical errors. TRAVEL OUTSIDE OF THE [place] IN LAST 30 DAYS: No - Related Data Allergies/Adverse Reactions: famotidine [From Pepcid] Allergy (Severe, Verified 02/15/18 00:55) Anaphylaxis ketorolac tromethamine [From Toradol] Allergy (Severe, Verified 02/15/18 00:55) levofloxacin [From Levaquin] Allergy (Severe, Verified 02/15/18 00:55) meperidine HCl [From Demerol] Allergy (Severe, Verified 02/15/18 00:55) morphine [Morphine] Allergy (Severe, Verified 02/15/18 00:55) tramadol HCl [From Ultram] Allergy (Severe, Verified 02/15/18 00:55) amoxicillin [Amoxicillin] Allergy (Verified 02/15/18 00:55) fentanyl [Fentanyl] Allergy (Verified 02/15/18 00:55) latex [Latex] Allergy (Verified 02/15/18 00:55) ondansetron HCl [From Zofran] Allergy (Verified 02/15/18 00:55) Past Medical History - Past Medical History Cardiac Medical History: Denies: Hx Atrial Fibrillation, Hx Congestive Heart Failure, Hx Coronary Artery Disease Pulmonary Medical History: Denies: Hx Bronchitis, Hx Tuberculosis Neurological Medical History: Reports: Hx Seizures Endocrine Medical History: Denies: Hx Diabetes Mellitus Type 1, Hx Diabetes Mellitus Type 2 Renal/ Medical History: Denies: Hx Peritoneal Dialysis Musculoskeltal Medical History: Reports Hx Musculoskeletal Deformity - right hip avascular necrosis Psychiatric Medical History: Denies: Hx Depression Past Surgical History: Reports: Hx Appendectomy, Hx Vascular Surgery - L port placement - Immunizations Immunizations up to date: Yes Hx Diphtheria, Pertussis, Tetanus Vaccination: Yes Physical Exam - Vital signs Vitals: Temp Pulse Resp BP Pulse Ox 98.5 F 69 18 127/79 H 94 02/16/18 19:05 02/16/18 19:05 02/16/18 19:05 02/16/18 19:05 02/16/18 19:05 Course - Vital Signs Vital signs: Temp Pulse Resp BP Pulse Ox 98.5 F 69 18 127/79 H 94 02/16/18 19:05 02/16/18 19:05 02/16/18 19:05 02/16/18 19:05 02/16/18 19:05
[2018-02-16] MEDS: DIPHENHYDRAMINE HCL 50 MG CAPSULE PO ONE ×2 (19:32→21:17)
--- NOTE | 2018-02-16 19:39 | RADIOLOGY REPORT (SQ) ---
EXAM DESCRIPTION: CHEST 2 VIEWS COMPLETED DATE/TIME: 02/16/2018 7:26 pm REASON FOR STUDY: shortness of breath, hx sickle cell COMPARISON: Earlier the same day. NUMBER OF VIEWS: Two view. TECHNIQUE: Frontal and lateral radiographic views of the chest acquired. LIMITATIONS: None. FINDINGS: LUNGS AND PLEURA: No opacities, masses or pneumothorax. No pleural effusion. MEDIASTINUM AND HILAR STRUCTURES: Stable. HEART AND VASCULAR STRUCTURES: Stable heart size. BONES: No acute findings. HARDWARE: None in the chest. OTHER: Unchanged position of left-sided port. IMPRESSION: CARDIAC ENLARGEMENT WITHOUT FAILURE. TECHNICAL DOCUMENTATION: JOB ID: [id number] [employer] All Rights Reserved Reading location - IP/workstation name: [email or web address]
[2018-02-16 20:01] LABS: HEMATOCRIT 26.9 % (37.9-51.0); HEMOGLOBIN 9.5 g/dL (13.5-17.0); MEAN CORPUSCULAR HEMOGLOBIN 36.7 pg (27.0-33.4); MEAN CORPUSCULAR HGB CONC 35.2 g/dL (32.0-36.0); MEAN CORPUSCULAR VOLUME 104 fl (80-97); PLATELET COUNT 241 10^3/uL (150-450); RED BLOOD COUNT 2.58 10^6/uL (4.35-5.55); RED CELL DISTRIBUTION WIDTH 17.8 % (11.5-14.0); RETICULOCYTE COUNT (AUTO) 5.79 % (0.66-2.85); WHITE BLOOD COUNT 5.3 10^3/uL (4.0-10.5)
[2018-02-16] MEDS ORDERED: FENTANYL 25 MCG/HR PATCH.TD72 TD ONE (20:36)
[2018-02-16] MEDS ORDERED: DIPHENHYDRAMINE HCL 25 MG CAPSULE PO PRN (20:36)
[2018-02-16] MEDS ORDERED: MAG HYDROX/AL HYDROX/SIMETH SUSP 30 ML UDCUP PO PRN (20:38)
[2018-02-16] MEDS ORDERED: IPRATROPIUM/ALBUTEROL 0.5-2.5 MG/3 ML AMPUL NEB PRN (20:38)
[2018-02-16] MEDS ORDERED: ACETAMINOPHEN 325 MG TABLET PO PRN (20:38)
[2018-02-16] MEDS ORDERED: MAGNESIUM HYDROXIDE SUSP 30 ML UDCUP PO PRN (20:38)
[2018-02-16 20:41] LABS: ABSOLUTE LYMPHOCYTES# (MANUAL) 1.4 10^3/uL (0.5-4.7); ABSOLUTE MONOCYTES # (MANUAL) 1.1 10^3/uL (0.1-1.4); ABSOLUTE NEUTROPHILS# (MANUAL) 2.8 10^3/uL (1.7-8.2); BASOPHILS % (MANUAL) 0 % (0-2); EOSINOPHILS % (MANUAL) 0 % (0-6); LYMPHOCYTES % (MANUAL) 27 % (13-45); MONOCYTES % (MANUAL) 21 % (3-13); SEGMENTED NEUTROPHILS % (MAN) 52 % (42-78); TOTAL CELLS COUNTED 100
[2018-02-16 20:42] LABS: ANISOCYTOSIS 1+; PLATELET COMMENT ADEQUATE; POLYCHROMASIA 1+; SICKLE RED CELLS 2+; TARGET CELLS 1+
--- NOTE | 2018-02-16 20:55 | ER Document Report ---
ED General - General Chief Complaint: Sickle Cell Crisis Stated Complaint: BODY PAIN/FACIAL PAIN Time Seen by Provider: 02/16/18 19:08 Notes: Patient is a 37-year-old male with a past medical history of sickle cell anemia who presents with ongoing sickle cell pain. He describes the pain as being diffuse in his body located most in his joint spaces and in his mandible. Patient states that the pain has never completely resolved over the past several weeks despite multiple visits to the emergency department and use of his home pain medications. 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 Does admit to some intermittent shortness of breath but denies anything currently. No chest pain. No fever. States this feels similar to severe sickle cell crisis he has had in the past. TRAVEL OUTSIDE OF THE [place] IN LAST 30 DAYS: No - Related Data Allergies/Adverse Reactions: famotidine [From Pepcid] Allergy (Severe, Verified 02/15/18 00:55) Anaphylaxis ketorolac tromethamine [From Toradol] Allergy (Severe, Verified 02/15/18 00:55) levofloxacin [From Levaquin] Allergy (Severe, Verified 02/15/18 00:55) meperidine HCl [From Demerol] Allergy (Severe, Verified 02/15/18 00:55) morphine [Morphine] Allergy (Severe, Verified 02/15/18 00:55) tramadol HCl [From Ultram] Allergy (Severe, Verified 02/15/18 00:55) amoxicillin [Amoxicillin] Allergy (Verified 02/15/18 00:55) fentanyl [Fentanyl] Allergy (Verified 02/15/18 00:55) latex [Latex] Allergy (Verified 02/15/18 00:55) ondansetron HCl [From Zofran] Allergy (Verified 02/15/18 00:55) Past Medical History - General Information source: Patient - Social History Smoking Status: Former Smoker Frequency of alcohol use: None Drug Abuse: None Lives with: Family Family History: Reviewed & Not Pertinent, Other Patient has suicidal ideation: No Patient has homicidal ideation: No - Past Medical History Cardiac Medical History: Denies: Hx Atrial Fibrillation, Hx Congestive Heart Failure, Hx Coronary Artery Disease Pulmonary Medical History: Denies: Hx Bronchitis, Hx Tuberculosis Neurological Medical History: Reports: Hx Seizures Endocrine Medical History: Denies: Hx Diabetes Mellitus Type 1, Hx Diabetes Mellitus Type 2 Renal/ Medical History: Denies: Hx Peritoneal Dialysis Musculoskeletal Medical History: Reports Hx Musculoskeletal Deformity - right hip avascular necrosis Psychiatric Medical History: Denies: Hx Depression Past Surgical History: Reports: Hx Appendectomy, Hx Vascular Surgery - L port placement - Immunizations Immunizations up to date: Yes Hx Diphtheria, Pertussis, Tetanus Vaccination: Yes Hx Pneumococcal Vaccination: 02/20/11 Review of Systems - Review of Systems Notes: Constitutional: Negative for fever. HENT: Negative for sore throat. Eyes: Negative for visual changes. Cardiovascular: Negative for chest pain. Respiratory: Negative for shortness of breath. Gastrointestinal: Negative for abdominal pain, vomiting or diarrhea. Genitourinary: Negative for dysuria. Musculoskeletal: Positive for diffuse joint pain Skin: Negative for rash. Neurological: Negative for headaches, weakness or numbness. 10 point ROS negative except as marked above and in HPI. Physical Exam - Vital signs Vitals: Temp Pulse Resp BP Pulse Ox 98.5 F 69 18 127/79 H 94 02/16/18 19:05 02/16/18 19:05 02/16/18 19:05 02/16/18 19:05 02/16/18 19:05 Interpretation: Normal Notes: PHYSICAL EXAMINATION: GENERAL: Well-appearing, well-nourished and in no acute distress. HEAD: Atraumatic, normocephalic. EYES: Pupils equal round and reactive to light, extraocular movements intact, sclera anicteric, conjunctiva are normal. ENT: nares patent, oropharynx clear without exudates. Moist mucous membranes. NECK: Normal range of motion, supple without lymphadenopathy LUNGS: Breath sounds clear to auscultation bilaterally and equal. No wheezes rales or rhonchi. HEART: Regular rate and rhythm without murmurs ABDOMEN: Soft, nontender, normoactive bowel sounds. No guarding, no rebound. No masses appreciated. EXTREMITIES: Normal range of motion, no pitting or edema. No cyanosis. NEUROLOGICAL: No focal neurological deficits. Moves all extremities spontaneously and on command. PSYCH: Normal mood, normal affect. SKIN: Warm, Dry, normal turgor, no rashes or lesions noted. Course - Re-evaluation Re-evalutation: 02/16/18 20:54 Patient presents for the sixth time in January for sickle cell pain with associated complaints of shortness of breath. The patient states that he has not ever felt like his pain is really gotten under control over the entirety of this month despite multiple visits to the ER as well as home medications. Vitals are within normal limits. Labs unchanged from this morning. Given the frequency of the patient's presentations I feel like we are feeling him by continually discharging him from the emergency department without adequately controlling his pain. I discussed with the hospitalist Dr. Ragland who has agreed to admit the patient for pain control and hematology consultation. Chest x-ray without evidence of acute chest syndrome patient is not hypoxic. Of note, patient did receive IV Benadryl during his stay in the emergency department although was not having acute allergic reaction. This was based on patient's request - Vital Signs Vital signs: Temp Pulse Resp BP Pulse Ox 98.5 F 60 16 128/88 H 97 02/17/18 00:32 02/17/18 00:32 02/17/18 00:32 02/17/18 00:32 02/17/18 00:32 - Laboratory Result Diagrams: 02/16/18 19:50 Laboratory results interpreted by me: 02/16/18 19:50 RBC 2.58 L Hgb 9.5 L Hct 26.9 L MCV 104 H MCH 36.7 H RDW 17.8 H Monocytes % (Manual) 21 H Retic Count (auto) 5.79 H Absolute Retic 0.150 H - Diagnostic Test Radiology reviewed: Image reviewed, Reports reviewed Radiology results interpreted by me: 02/16/18 20:54 Chest x-ray: No acute infiltrate Discharge - Discharge Clinical Impression: Sickle cell crisis Joint pain Qualifiers: Joint pain location: unspecified Qualified Code(s): M25.50 - Pain in unspecified joint Condition: Fair Disposition: ADMITTED INPATIENT Admitting Provider: Hospitalist Unit Admitted: Medical Floor
[2018-02-16] MEDS ORDERED: DIPHENHYDRAMINE HCL 50 MG/ML VIAL IV ONE (21:28)
[2018-02-16] MEDS: HYDROMORPHONE HCL INJ/PF 2 MG/ML AMPULE IV PRN (21:45)
--- NOTE | 2018-02-16 21:58 | EKG REPORT ---
SEVERITY:- NORMAL ECG - SINUS RHYTHM : Confirmed by: Enedina Traylor 16-Feb-2018 21:57:54
[2018-02-17] MEDS: HYDROMORPHONE HCL INJ/PF 2 MG/ML AMPULE IV PRN ×5 (00:18→23:22)
[2018-02-17] MEDS: NORMAL SALINE 1000 ML 1,000 ML IV PRN ×4 (01:00→23:17)
[2018-02-17] MEDS: HEPARIN SOD (PORCINE) 5,000 UNIT/ML 1 ML SYRINGE SUBCUT SCH ×4 (01:47→23:17)
[2018-02-17] MEDS: HYDROMORPHONE HCL 2 MG TABLET PO PRN ×2 (02:05→05:25)
--- NOTE | 2018-02-17 04:15 | PDOC H&P ---
History of Present Illness Admission Date/PCP: 02/16/18 20:38 Patient complains of: Sickle cell pain crisis History of Present Illness: MARISA GARBER is a 37 year old male with a past medical history of sickle cell anemia presents with 3 days of diffuse joint and facial pain. Denies fever cough or shortness of breath. In the emergency room he receives Dilaudid and IV Benadryl as requested. Patient is referred to the hospitalist for admission despite baseline hemoglobin and reticulocyte count. Denies viral prodrome, sore throat, nausea vomiting diarrhea. Patient requests IV Benadryl several times but is denied secondary lack of evidence for irritability, itching or scratching, hypertension or tachycardia. Nursing staff clarifies his objection to p.o. Benadryl secondary to foul taste. Oral solution substitute ordered. Past Medical History Cardiac Medical History: Denies: Atrial Fibrillation, Congestive Heart Failure, Coronary Artery Disease Pulmonary Medical History: Denies: Bronchitis, Tuberculosis Neurological Medical History: Reports: Seizures Endocrine Medical History: Denies: Diabetes Mellitus Type 1, Diabetes Mellitus Type 2 Psychiatric Medical History: Denies: Depression Hematology: Reports: Anemia, Sickle Cell Disease Denies: Hemophilia Past Surgical History Past Surgical History: Reports: Appendectomy, Vascular Surgery - L port placement Social History Information Source: Patient, Emergency Med Personnel, [facility] Records Lives with: Family Smoking Status: Former Smoker Frequency of Alcohol Use: None Hx Recreational Drug Use: No Drugs: Methadone Hx Prescription Drug Abuse: No - Advance Directive Resuscitation Status: Full Code Family History Family History: Other - Refused Parental Family History Reviewed: No - Refused Children Family History Reviewed: No Sibling(s) Family History Reviewed.: No - Refused refused Medication/Allergy Home Medications: Folic Acid 1 mg PO DAILY 10/11/16 Hydroxyurea [Hydrea 500 mg Capsule] 2,000 mg PO SUTUTHSA@1000 10/11/16 Methadone HCl [Dolophine HCl] 5 mg PO BID 10/11/16 Oxycodone HCl [Oxycodone HCl 10 MG Tablet] 10 mg PO BID PRN 04/05/17 Allergies/Adverse Reactions: famotidine [From Pepcid] Allergy (Severe, Verified 02/15/18 00:55) Anaphylaxis ketorolac tromethamine [From Toradol] Allergy (Severe, Verified 02/15/18 00:55) levofloxacin [From Levaquin] Allergy (Severe, Verified 02/15/18 00:55) meperidine HCl [From Demerol] Allergy (Severe, Verified 02/15/18 00:55) morphine [Morphine] Allergy (Severe, Verified 02/15/18 00:55) tramadol HCl [From Ultram] Allergy (Severe, Verified 02/15/18 00:55) amoxicillin [Amoxicillin] Allergy (Verified 02/15/18 00:55) fentanyl [Fentanyl] Allergy (Verified 02/15/18 00:55) latex [Latex] Allergy (Verified 02/15/18 00:55) ondansetron HCl [From Zofran] Allergy (Verified 02/15/18 00:55) Review of Systems ROS unobtainable: Other - Refused interview Physical Exam Vital Signs: Temp Pulse Resp BP Pulse Ox 98.5 F 60 16 128/88 H 97 02/17/18 00:32 02/17/18 00:32 02/17/18 00:32 02/17/18 00:32 02/17/18 00:32 Intake & Output 02/15/18 02/16/18 02/17/18 11:59 11:59 11:59 Intake Total 975 Balance 975 General appearance: PRESENT: no acute distress, other - Refused physical exam. ABSENT: cooperative Results Impressions: Chest X-Ray 02/16/18 19:10 IMPRESSION: CARDIAC ENLARGEMENT WITHOUT FAILURE. Assessment & Plan - Diagnosis (1) Sickle cell crisis Is this a current diagnosis for this admission?: Yes Plan: Telemetry, aggressive IV fluid hydration, supplemental oxygen, outpatient regiment, symptomatic management with Dilaudid as tolerated, p.o. solution Benadryl following clarification of objection to capsule formulation. Follow- up CBC, consider hematology consult - Time Time Spent: 30 to 50 Minutes
[2018-02-17] MEDS ORDERED: DIPHENHYDRAMINE HCL 25 MG/10 ML UDC PO PRN ×2 (04:16→14:28)
[2018-02-17 07:51] LABS: URINE AMPHETAMINES SCREEN NEGATIVE; URINE BARBITURATES SCREEN NEGATIVE; URINE BENZODIAZEPINES SCREEN NEGATIVE; URINE COCAINE SCREEN NEGATIVE; URINE MARIJUANA (THC) SCREEN NEGATIVE; URINE METHADONE SCREEN NEGATIVE; URINE PHENCYCLIDINE SCREEN NEGATIVE
[2018-02-17] MEDS: IPRATROPIUM/ALBUTEROL 0.5-2.5 MG/3 ML AMPUL NEB SCH ×2 (08:42→19:46)
[2018-02-17] MEDS ORDERED: OXYCODONE HCL IR 5 MG TABLET PO PRN (08:47)
[2018-02-17] MEDS: DOCUSATE SODIUM 100 MG CAPSULE PO SCH ×2 (09:46→18:55)
[2018-02-17] MEDS: METHADONE HCL 10 MG TABLET PO SCH ×2 (09:46→18:53)
[2018-02-17] MEDS: FOLIC ACID 1 MG TABLET PO SCH (09:46)
[2018-02-17 10:33] LABS: HEMATOCRIT 25.5 % (37.9-51.0); HEMOGLOBIN 8.9 g/dL (13.5-17.0); MEAN CORPUSCULAR HEMOGLOBIN 36.3 pg (27.0-33.4); MEAN CORPUSCULAR HGB CONC 34.8 g/dL (32.0-36.0); MEAN CORPUSCULAR VOLUME 104 fl (80-97); PLATELET COUNT 202 10^3/uL (150-450); RED BLOOD COUNT 2.45 10^6/uL (4.35-5.55); RED CELL DISTRIBUTION WIDTH 17.8 % (11.5-14.0); WHITE BLOOD COUNT 5.2 10^3/uL (4.0-10.5)
[2018-02-17 10:57] LABS: ANION GAP 9 (5-19); BLOOD UREA NITROGEN 6 mg/dL (7-20); CALCIUM 8.6 mg/dL (8.4-10.2); CARBON DIOXIDE 29 mmol/L (22-30); CHLORIDE 106 mmol/L (98-107); GLUCOSE 77 mg/dL (75-110); SODIUM 143.5 mmol/L (137-145)
[2018-02-17 11:38] LABS: ABSOLUTE LYMPHOCYTES# (MANUAL) 2.4 10^3/uL (0.5-4.7); ABSOLUTE MONOCYTES # (MANUAL) 0.4 10^3/uL (0.1-1.4); ABSOLUTE NEUTROPHILS# (MANUAL) 2.4 10^3/uL (1.7-8.2); BASOPHILS % (MANUAL) 0 % (0-2); EOSINOPHILS % (MANUAL) 0 % (0-6); LYMPHOCYTES % (MANUAL) 45 % (13-45); MONOCYTES % (MANUAL) 7 % (3-13); NUCLEATED RED BLOOD CELLS 5 /100 WBC (0); SEGMENTED NEUTROPHILS % (MAN) 46 % (42-78); TOTAL CELLS COUNTED 100
[2018-02-17 11:41] LABS: ANISOCYTOSIS 2+; HYPOCHROMASIA 1+; POIKILOCYTOSIS 2+; POLYCHROMASIA 2+; SICKLE RED CELLS SLIGHT
[2018-02-17 11:42] LABS: PLATELET COMMENT ADEQUATE
[2018-02-17] MEDS ORDERED: NORMAL SALINE 1000 ML 1,000 ML IV PRN (12:57)
[2018-02-17] MEDS ORDERED: DIPHENHYDRAMINE HCL 50 MG/ML VIAL IV PRN (12:57)
[2018-02-17] MEDS ORDERED: IBUPROFEN 600 MG TABLET PO PRN (16:05)
--- NOTE | 2018-02-17 16:07 | PDOC PROGRESS REPORT ---
Subjective Progress Note for:: 02/17/18 Subjective:: The patient is a 37-year-old male with a past medical history of sickle cell anemia (avascular necrosis hip, acute chest syndrome), opiate dependence with continuous use, seizure, and anemia who was admitted 02/16/2018 for sickle cell crisis. The patient was seen on morning rounds; prior to my visit I had already been contacted by nursing multiple times and by the patient advocate for complaint of uncontrolled pain. The patient's primary concern was p.o. versus IV medications. He is requesting IV Dilaudid and IV Benadryl. Unfortunately IV Benadryl is on back ordered; he is offered elixir versus capsule. He remained unsatisfied with p.o. Dilaudid option. Hematology was consulted; Dr. Medellin has requested that all pain related requests be directed to him. The patient was updated on this plan and he seems satisfied. He reports diffuse joint pain and muscle aches; he reports that his bilateral ankles and knees are the most severe and were swollen yesterday. He denies injury or recent illness and believes that his sickle cell crisis was precipitated by the change in weather. [facility]. He denied headache, dizziness, chest pain, difficulty breathing, nausea vomiting and diarrhea. He has no other concerns. No other concerns per nursing. Reason For Visit: SICKLE CELL PAIN Physical Exam Vital Signs: Temp Pulse Resp BP Pulse Ox 98.4 F 55 L 16 128/82 H 99 02/17/18 11:29 02/17/18 11:29 02/17/18 11:29 02/17/18 11:29 02/17/18 11:29 Intake & Output 02/16/18 02/17/18 02/18/18 06:59 06:59 06:59 Intake Total 2975 Balance 2975 Weight 81.5 kg General appearance: PRESENT: no acute distress, well-developed, well-nourished Head exam: PRESENT: atraumatic, normocephalic Eye exam: PRESENT: conjunctiva pink, EOMI, PERRLA. ABSENT: scleral icterus Ear exam: PRESENT: normal external ear exam Mouth exam: PRESENT: moist, tongue midline Neck exam: ABSENT: carotid bruit, JVD, lymphadenopathy, thyromegaly Respiratory exam: PRESENT: clear to auscultation anastasiya, symmetrical, unlabored. ABSENT: rales, rhonchi, wheezes Cardiovascular exam: PRESENT: RRR, +S1, +S2. ABSENT: diastolic murmur, rubs, systolic murmur Pulses: PRESENT: normal dorsalis pedis pul Vascular exam: PRESENT: normal capillary refill GI/Abdominal exam: PRESENT: normal bowel sounds, soft. ABSENT: distended, guarding, mass, organolmegaly, rebound, tenderness Rectal exam: PRESENT: deferred Extremities exam: PRESENT: full ROM, tenderness - Generalized joint discomfort. ABSENT: calf tenderness, clubbing, pedal edema Neurological exam: PRESENT: alert, awake, oriented to person, oriented to place , oriented to time, oriented to situation, CN II-XII grossly intact. ABSENT: motor sensory deficit Psychiatric exam: PRESENT: appropriate affect, normal mood. ABSENT: homicidal ideation, suicidal ideation Skin exam: PRESENT: dry, intact, warm. ABSENT: cyanosis, rash Results Laboratory Results: 02/17/18 09:15 02/17/18 09:15 02/17/18 02/17/18 09:15 09:15 WBC 5.2 RBC 2.45 L Hgb 8.9 L Hct 25.5 L MCV 104 H MCH 36.3 H MCHC 34.8 RDW 17.8 H Plt Count 202 Seg Neutrophils % Not Reportable Lymphocytes % Not Reportable Monocytes % Not Reportable Eosinophils % Not Reportable Basophils % Not Reportable Absolute Neutrophils Not Reportable Absolute Lymphocytes Not Reportable Absolute Monocytes Not Reportable Absolute Eosinophils Not Reportable Absolute Basophils Not Reportable Sodium 143.5 Potassium 4.0 Chloride 106 Carbon Dioxide 29 Anion Gap 9 BUN 6 L Creatinine 0.64 Est GFR ( Amer) > 60 Est GFR (Non-Af Amer) > 60 Glucose 77 Calcium 8.6 Impressions: Chest X-Ray 02/16/18 19:10 IMPRESSION: CARDIAC ENLARGEMENT WITHOUT FAILURE. Assessment & Plan - Diagnosis (1) Sickle cell crisis Is this a current diagnosis for this admission?: Yes Plan: The patient reports several weeks of progressively worsening generalized joint pain; most recently his bilateral ankles and knees have been the most painful. He reports he had knee swelling yesterday. He is [facility]. On admission hemoglobin 9.5; appears to be at baseline. It has trended down slightly to 8.9 this morning. Retic count elevated to 5.79; near baseline. He is admitted to the medical floor. Encourage p.o. fluids. He is placed on IV maintenance fluids. We will continue his home medication regiment: Hydroxyurea, baclofen, ibuprofen , methadone, oxycodone, folic acid. IV Dilaudid with p.o. Benadryl as needed. Heating pad. Hematology is consulted; spoke with Dr. Medellin, appreciate his expert assistance. All pain medication request to be directed to Dr. Medellin per his request. (2) Joint pain Qualifiers: Joint pain location: unspecified Qualified Code(s): M25.50 - Pain in unspecified joint Is this a current diagnosis for this admission?: Yes Plan: Secondary to #1. Plan as above. (3) Opiate dependence, continuous Is this a current diagnosis for this admission?: Yes Plan: The patient's home medication regiment is continued; methadone 5 mg twice daily , oxycodone 10 mg every 8 hours as needed. (4) DVT prophylaxis Is this a current diagnosis for this admission?: Yes Plan: Heparin - Time Time Spent with patient: 35 or more minutes - Inpatient Certification Based on my medical assessment, after consideration of the patient's comorbidities, presenting symptoms, or acuity I expect that the services needed warrant INPATIENT care.: Yes I certify that my determination is in accordance with my understanding of Medicare's requirements for reasonable and necessary INPATIENT services [42 CFR 412.3e].: Yes Medical Necessity: Need For IV Fluids, Need for Pain Control
[2018-02-17] MEDS: BACLOFEN 10 MG TABLET PO SCH (23:17)
[2018-02-18] MEDS: HYDROMORPHONE HCL INJ/PF 2 MG/ML AMPULE IV PRN ×9 (02:22→22:17)
[2018-02-18 05:22] LABS: HEMATOCRIT 25.9 % (37.9-51.0); HEMOGLOBIN 9.1 g/dL (13.5-17.0); MEAN CORPUSCULAR HEMOGLOBIN 36.4 pg (27.0-33.4); MEAN CORPUSCULAR VOLUME 104 fl (80-97); PLATELET COUNT 186 10^3/uL (150-450); RED BLOOD COUNT 2.49 10^6/uL (4.35-5.55); RED CELL DISTRIBUTION WIDTH 17.8 % (11.5-14.0); WHITE BLOOD COUNT 4.3 10^3/uL (4.0-10.5)
[2018-02-18 05:43] LABS: ANION GAP 9 (5-19); BLOOD UREA NITROGEN 8 mg/dL (7-20); CALCIUM 8.6 mg/dL (8.4-10.2); CARBON DIOXIDE 29 mmol/L (22-30); CHLORIDE 104 mmol/L (98-107); GLUCOSE 99 mg/dL (75-110); SODIUM 142.3 mmol/L (137-145)
[2018-02-18] MEDS: HEPARIN SOD (PORCINE) 5,000 UNIT/ML 1 ML SYRINGE SUBCUT SCH ×3 (06:22→22:18)
[2018-02-18 06:39] LABS: ABSOLUTE MONOCYTES # (MANUAL) 0.7 10^3/uL (0.1-1.4); ABSOLUTE NEUTROPHILS# (MANUAL) 1.5 10^3/uL (1.7-8.2); BASOPHILS % (MANUAL) 0 % (0-2); EOSINOPHILS % (MANUAL) 2 % (0-6); LYMPHOCYTES % (MANUAL) 47 % (13-45); MONOCYTES % (MANUAL) 17 % (3-13); NUCLEATED RED BLOOD CELLS 2 /100 WBC (0); POLYCHROMASIA 1+; SEGMENTED NEUTROPHILS % (MAN) 34 % (42-78); TOTAL CELLS COUNTED 100; TOXIC GRANULATION 1+
[2018-02-18 06:40] LABS: ANISOCYTOSIS 1+; HOWELL-JOLLY BODIES PRESENT; PAPPENHEIMER BODIES PRESENT; PLATELET CLUMPS PRESENT; PLATELET COMMENT ADEQUATE; POIKILOCYTOSIS 1+; SCHISTOCYTES 1+; SICKLE RED CELLS 1+; TARGET CELLS 1+
[2018-02-18] MEDS: IPRATROPIUM/ALBUTEROL 0.5-2.5 MG/3 ML AMPUL NEB SCH ×2 (07:42→19:53)
[2018-02-18] MEDS: NORMAL SALINE 1000 ML 1,000 ML IV PRN (08:17)
[2018-02-18] MEDS ORDERED: DIPHENHYDRAMINE HCL 50 MG CAPSULE PO PRN (08:31)
--- NOTE | 2018-02-18 08:44 | PDOC CONSULTATION ---
Consultation Consult Date: 02/18/18 Consult reason:: Hematology/Oncology consultation was requested for patient with sickle cell anemia History of Present Illness Admission Date/PCP: 02/16/18 20:38 History of Present Illness: MARISA GARBER is a 37 year old male who is followed at [facility] by Dr. Anaya for sickle cell anemia. He states that he had been doing well without an acute crisis for almost a year until 3 weeks ago when he awoke from sleep with severe travis all over. He took his home meds and tried to work through the pain. However, he became weak and lightheaded and presented to the ED. Today, he states that he is itching all over and the benadryl is not working. He has done well with IV benadryl in the past and has difficulty believing that we are not able to give him IV benadryl. He has been having difficulty holding anything down, but would like to try to eat this morning. Past Medical History Cardiac Medical History: Denies: Atrial Fibrillation, Congestive Heart Failure, Coronary Artery Disease Pulmonary Medical History: Denies: Bronchitis, Tuberculosis Neurological Medical History: Reports: Seizures Endocrine Medical History: Denies: Diabetes Mellitus Type 1, Diabetes Mellitus Type 2 Psychiatric Medical History: Denies: Depression Hematology: Reports: Anemia, Sickle Cell Disease Denies: Hemophilia Past Surgical History Past Surgical History: Reports: Appendectomy, Vascular Surgery - L port placement, Other - Port placement Social History Occupation: He is . He has 2 daughters. 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 Lives with: Family Smoking Status: Former Smoker Frequency of Alcohol Use: None Hx Recreational Drug Use: No Drugs: Methadone Hx Prescription Drug Abuse: No - Advance Directive Resuscitation Status: Full Code Family History Family History: Other - Refused Parental Family History Reviewed: Yes - Mother of natural causes. Father alive. Children Family History Reviewed: Yes Sibling(s) Family History Reviewed.: No Medication/Allergy Home Medications: Folic Acid 1 mg PO DAILY 10/11/16 Hydroxyurea [Hydrea 500 mg Capsule] 2,000 mg PO SUTUTHSA@1000 10/11/16 Methadone HCl [Dolophine HCl] 5 mg PO BID 10/11/16 Oxycodone HCl [Oxycodone HCl 10 MG Tablet] 10 mg PO Q8HP PRN 04/05/17 Baclofen [Baclofen 10 mg Tablet] 10 mg PO QHS 02/17/18 Ibuprofen [Motrin 600 mg Tablet] 600 mg PO Q6HP PRN 02/17/18 Allergies/Adverse Reactions: famotidine [From Pepcid] Allergy (Severe, Verified 02/15/18 00:55) Anaphylaxis ketorolac tromethamine [From Toradol] Allergy (Severe, Verified 02/15/18 00:55) levofloxacin [From Levaquin] Allergy (Severe, Verified 02/15/18 00:55) meperidine HCl [From Demerol] Allergy (Severe, Verified 02/15/18 00:55) morphine [Morphine] Allergy (Severe, Verified 02/15/18 00:55) tramadol HCl [From Ultram] Allergy (Severe, Verified 02/15/18 00:55) amoxicillin [Amoxicillin] Allergy (Verified 02/15/18 00:55) fentanyl [Fentanyl] Allergy (Verified 02/15/18 00:55) latex [Latex] Allergy (Verified 02/15/18 00:55) ondansetron HCl [From Zofran] Allergy (Verified 02/15/18 00:55) Review of Systems Constitutional: PRESENT: headache(s). ABSENT: fever(s) Eyes: ABSENT: visual disturbances Ears: ABSENT: hearing changes Nose, Mouth, and Throat: ABSENT: sore throat Cardiovascular: ABSENT: palpitations Respiratory: ABSENT: cough Gastrointestinal: PRESENT: constipation. ABSENT: abdominal pain Genitourinary: ABSENT: dysuria Musculoskeletal: PRESENT: back pain, other - Joint pain Integumentary: PRESENT: pruritus Neurological: ABSENT: frequent falls Hematologic/Lymphatic: ABSENT: lymphadenopathy Physical Exam Vital Signs: Temp Pulse Resp BP Pulse Ox 98.4 F 57 L 16 116/71 97 02/17/18 15:21 02/18/18 07:00 02/17/18 15:21 02/17/18 15:21 02/17/18 15:21 Intake & Output 02/17/18 02/18/18 02/19/18 06:59 06:59 06:59 Intake Total 2975 1854 1000 Output Total 3100 Balance 2975 -1246 1000 Weight 81.5 kg 82.9 kg General appearance: PRESENT: well-developed, well-nourished Exam: 37 year old male. Head exam: PRESENT: normocephalic Eye exam: PRESENT: EOMI Mouth exam: PRESENT: moist, tongue midline Neck exam: ABSENT: lymphadenopathy, tenderness Respiratory exam: PRESENT: clear to auscultation anastasiya Cardiovascular exam: PRESENT: RRR. ABSENT: tachycardia GI/Abdominal exam: PRESENT: normal bowel sounds, tenderness Extremities exam: ABSENT: pedal edema Musculoskeletal exam: PRESENT: normal inspection Neurological exam: PRESENT: alert, awake Psychiatric exam: PRESENT: appropriate affect Focused psych exam: PRESENT: restlessness. ABSENT: psychomotor agitation Skin exam: PRESENT: normal color Results Laboratory Results: 02/18/18 05:00 02/18/18 05:00 02/17/18 02/17/18 02/18/18 09:15 09:15 05:00 WBC 5.2 4.3 RBC 2.45 L 2.49 L Hgb 8.9 L 9.1 L Hct 25.5 L 25.9 L MCV 104 H 104 H MCH 36.3 H 36.4 H MCHC 34.8 35.0 RDW 17.8 H 17.8 H Plt Count 202 186 Seg Neutrophils % Not Reportable Not Reportable Lymphocytes % Not Reportable Not Reportable Monocytes % Not Reportable Not Reportable Eosinophils % Not Reportable Not Reportable Basophils % Not Reportable Not Reportable Absolute Neutrophils Not Reportable Not Reportable Absolute Lymphocytes Not Reportable Not Reportable Absolute Monocytes Not Reportable Not Reportable Absolute Eosinophils Not Reportable Not Reportable Absolute Basophils Not Reportable Not Reportable Sodium 143.5 Potassium 4.0 Chloride 106 Carbon Dioxide 29 Anion Gap 9 BUN 6 L Creatinine 0.64 Est GFR ( Amer) > 60 Est GFR (Non-Af Amer) > 60 Glucose 77 Calcium 8.6 Blood Type Antibody Screen 02/18/18 02/18/18 05:00 05:00 WBC RBC Hgb Hct MCV MCH MCHC RDW Plt Count Seg Neutrophils % Lymphocytes % Monocytes % Eosinophils % Basophils % Absolute Neutrophils Absolute Lymphocytes Absolute Monocytes Absolute Eosinophils Absolute Basophils Sodium 142.3 Potassium 4.0 Chloride 104 Carbon Dioxide 29 Anion Gap 9 BUN 8 Creatinine 0.61 Est GFR ( Amer) > 60 Est GFR (Non-Af Amer) > 60 Glucose 99 Calcium 8.6 Blood Type O POSITIVE Antibody Screen NEGATIVE Impressions: Chest X-Ray 02/16/18 19:10 IMPRESSION: CARDIAC ENLARGEMENT WITHOUT FAILURE. Status: Image reviewed by me Assessment & Plan - Diagnosis (1) Sickle cell crisis Is this a current diagnosis for this admission?: Yes Plan: Continue IV fluids. I will change to 1/2 NS. Continue Oxygen. Continue pain medications. (2) Itching Is this a current diagnosis for this admission?: Yes Plan: Very commonly seen in sickle cell patients. I will increase benadryl to 50 mg PO q 4 hours PRN. May add Hydroxyzine as well if needed. - Plan Summary Plan Summary: Change to regular diet. Encourage PO intake and walking in [place]. I will check CMP and LDH in am.
[2018-02-18] MEDS ORDERED: HYDROXYUREA 500 MG CAPSULE PO SCH (10:00)
[2018-02-18] MEDS: METHADONE HCL 10 MG TABLET PO SCH ×2 (10:35→17:39)
[2018-02-18] MEDS: FOLIC ACID 1 MG TABLET PO SCH (10:35)
[2018-02-18] MEDS: DOCUSATE SODIUM 100 MG CAPSULE PO SCH ×2 (10:35→17:40)
--- NOTE | 2018-02-18 14:29 | PDOC PROGRESS REPORT ---
Subjective Progress Note for:: 02/18/18 Subjective:: No adverse events overnight. No new complaints. Was most interested in talking to Dr. Medellin about his pain medication. He seemed very calm and relaxed whenever I saw him and his responses were somewhat delayed and his general affect was somewhat subdued. Reason For Visit: SICKLE CELL PAIN Physical Exam Vital Signs: Temp Pulse Resp BP Pulse Ox 97.8 F 55 L 16 118/85 100 02/18/18 11:42 02/18/18 11:42 02/18/18 11:42 02/18/18 11:42 02/18/18 11:42 Intake & Output 02/17/18 02/18/18 02/19/18 06:59 06:59 06:59 Intake Total 2975 1854 1000 Output Total 3100 Balance 2975 -1246 1000 Weight 81.5 kg 82.9 kg General appearance: PRESENT: no acute distress, well-developed, well-nourished Respiratory exam: PRESENT: clear to auscultation anastasiya, symmetrical, unlabored. ABSENT: rales, rhonchi, wheezes Cardiovascular exam: PRESENT: RRR, +S1, +S2. ABSENT: diastolic murmur, rubs, systolic murmur Pulses: PRESENT: normal dorsalis pedis pul Vascular exam: PRESENT: normal capillary refill GI/Abdominal exam: PRESENT: normal bowel sounds, soft. ABSENT: distended, guarding, mass, organolmegaly, rebound, tenderness Extremities exam: PRESENT: full ROM. ABSENT: clubbing, pedal edema Neurological exam: PRESENT: seemed somewhat sedated, awake, oriented to person, oriented to place, oriented to time, oriented to situation Results Laboratory Results: 02/18/18 05:00 02/18/18 05:00 02/18/18 02/18/18 02/18/18 05:00 05:00 05:00 WBC 4.3 RBC 2.49 L Hgb 9.1 L Hct 25.9 L MCV 104 H MCH 36.4 H MCHC 35.0 RDW 17.8 H Plt Count 186 Seg Neutrophils % Not Reportable Lymphocytes % Not Reportable Monocytes % Not Reportable Eosinophils % Not Reportable Basophils % Not Reportable Absolute Neutrophils Not Reportable Absolute Lymphocytes Not Reportable Absolute Monocytes Not Reportable Absolute Eosinophils Not Reportable Absolute Basophils Not Reportable Sodium 142.3 Potassium 4.0 Chloride 104 Carbon Dioxide 29 Anion Gap 9 BUN 8 Creatinine 0.61 Est GFR ( Amer) > 60 Est GFR (Non-Af Amer) > 60 Glucose 99 Calcium 8.6 Blood Type O POSITIVE Antibody Screen NEGATIVE Impressions: Chest X-Ray 02/16/18 19:10 IMPRESSION: CARDIAC ENLARGEMENT WITHOUT FAILURE. Assessment & Plan - Diagnosis (1) Sickle cell crisis Is this a current diagnosis for this admission?: Yes Plan: Continue IV fluids, supplemental O2, and pain medication per hematology service. - Time Time Spent with patient: 15-24 minutes
[2018-02-18] MEDS: 1/2 NORMAL SALINE 1,000 ML IV PRN (16:09)
[2018-02-18] MEDS: BACLOFEN 10 MG TABLET PO SCH (22:18)
[2018-02-19] MEDS: HYDROMORPHONE HCL INJ/PF 2 MG/ML AMPULE IV PRN ×9 (00:22→17:34)
[2018-02-19] MEDS: 1/2 NORMAL SALINE 1,000 ML IV PRN ×2 (00:23→08:11)
[2018-02-19] MEDS: HEPARIN SOD (PORCINE) 5,000 UNIT/ML 1 ML SYRINGE SUBCUT SCH ×2 (05:34→14:26)
[2018-02-19 05:42] LABS: HEMATOCRIT 26.7 % (37.9-51.0); HEMOGLOBIN 9.3 g/dL (13.5-17.0); MEAN CORPUSCULAR HGB CONC 34.7 g/dL (32.0-36.0); MEAN CORPUSCULAR VOLUME 104 fl (80-97); PLATELET COUNT 174 10^3/uL (150-450); RED BLOOD COUNT 2.58 10^6/uL (4.35-5.55); RED CELL DISTRIBUTION WIDTH 17.3 % (11.5-14.0); WHITE BLOOD COUNT 4.5 10^3/uL (4.0-10.5)
[2018-02-19 05:47] LABS: ALANINE AMINOTRANSFERASE 22 U/L (21-72); ALBUMIN 3.7 g/dL (3.5-5.0); ALKALINE PHOSPHATASE 58 U/L (38-126); ANION GAP 8 (5-19); ASPARTATE AMINO TRANSFERASE 31 U/L (17-59); BILIRUBIN,DIRECT 0.2 mg/dL (0.0-0.4); BLOOD UREA NITROGEN 9 mg/dL (7-20); CALCIUM 8.5 mg/dL (8.4-10.2); CARBON DIOXIDE 31 mmol/L (22-30); CHLORIDE 101 mmol/L (98-107); GLUCOSE 70 mg/dL (75-110); POTASSIUM 4.1 mmol/L (3.6-5.0); SODIUM 140.3 mmol/L (137-145); TOTAL PROTEIN 7.2 g/dL (6.3-8.2)
[2018-02-19 06:15] LABS: ABSOLUTE LYMPHOCYTES# (MANUAL) 1.6 10^3/uL (0.5-4.7); ABSOLUTE MONOCYTES # (MANUAL) 0.6 10^3/uL (0.1-1.4); ABSOLUTE NEUTROPHILS# (MANUAL) 2.2 10^3/uL (1.7-8.2); BASOPHILS % (MANUAL) 0 % (0-2); EOSINOPHILS % (MANUAL) 4 % (0-6); LYMPHOCYTES % (MANUAL) 35 % (13-45); MONOCYTES % (MANUAL) 13 % (3-13); NUCLEATED RED BLOOD CELLS 1 /100 WBC (0); SEGMENTED NEUTROPHILS % (MAN) 48 % (42-78); TOTAL CELLS COUNTED 100
[2018-02-19 06:18] LABS: ANISOCYTOSIS 1+; BURR CELLS SLIGHT; PLATELET COMMENT ADEQUATE; POIKILOCYTOSIS 1+; POLYCHROMASIA SLIGHT; SICKLE RED CELLS 1+; TARGET CELLS SLIGHT; TEAR DROP CELLS SLIGHT
[2018-02-19] MEDS: IPRATROPIUM/ALBUTEROL 0.5-2.5 MG/3 ML AMPUL NEB SCH (07:59)
--- NOTE | 2018-02-19 08:23 | PDOC PROGRESS REPORT ---
Subjective Progress Note for:: 02/19/18 Subjective:: Patient feeling much better today and is requesting discharge to home. However , he states that he is out of his narcotic prescriptions and is unsure if he will be able to get to [facility] today to pick up attendant new Rx. Reason For Visit: SICKLE CELL PAIN Physical Exam Vital Signs: Temp Pulse Resp BP Pulse Ox 98.5 F 86 16 117/71 98 02/19/18 07:20 02/19/18 07:59 02/19/18 07:59 02/19/18 07:20 02/19/18 07:59 Intake & Output 02/18/18 02/19/18 02/20/18 06:59 06:59 06:59 Intake Total 1854 3145 1000 Output Total 3100 2200 Balance -5329 945 0335 Weight 82.9 kg 82.4 kg General appearance: PRESENT: no acute distress Head exam: PRESENT: normocephalic Respiratory exam: PRESENT: unlabored Extremities exam: ABSENT: pedal edema Neurological exam: PRESENT: alert, awake, oriented to person, oriented to place , oriented to time, oriented to situation Psychiatric exam: PRESENT: appropriate affect Skin exam: PRESENT: normal color Results Laboratory Results: 02/19/18 03:55 02/19/18 03:55 02/19/18 02/19/18 03:55 03:55 WBC 4.5 RBC 2.58 L Hgb 9.3 L Hct 26.7 L MCV 104 H MCH 36.0 H MCHC 34.7 RDW 17.3 H Plt Count 174 Seg Neutrophils % Not Reportable Lymphocytes % Not Reportable Monocytes % Not Reportable Eosinophils % Not Reportable Basophils % Not Reportable Absolute Neutrophils Not Reportable Absolute Lymphocytes Not Reportable Absolute Monocytes Not Reportable Absolute Eosinophils Not Reportable Absolute Basophils Not Reportable Sodium 140.3 Potassium 4.1 Chloride 101 Carbon Dioxide 31 H Anion Gap 8 BUN 9 Creatinine 0.68 Est GFR ( Amer) > 60 Est GFR (Non-Af Amer) > 60 Glucose 70 L Calcium 8.5 Total Bilirubin 1.0 AST 31 ALT 22 Alkaline Phosphatase 58 Total Protein 7.2 Albumin 3.7 Impressions: Chest X-Ray 02/16/18 19:10 IMPRESSION: CARDIAC ENLARGEMENT WITHOUT FAILURE. Assessment & Plan - Diagnosis (1) Sickle cell crisis Is this a current diagnosis for this admission?: Yes Plan: Pain now well controlled. Labs show only mild elevation in LDH. No elevated Bili. HGB has been stable. (2) Itching Is this a current diagnosis for this admission?: Yes Plan: Improved with higher dose of benadryl - Plan Summary Plan Summary: OK for discharge today from my standpoint. I have called [facility] benign hematology clinic at [phone] and left a message with Ann. I have written Rx for Methadone 5 mg tabs Si po q 12 hours #TEN as well as Oxycodone IR 5 mg tabs Si po q 6 hours PRN # TWENTY. These Rx were left with patient's nurse on the 5th floor. He should continue to follow at [facility] from here on out.
[2018-02-19] MEDS: METHADONE HCL 10 MG TABLET PO SCH (09:44)
[2018-02-19] MEDS: DOCUSATE SODIUM 100 MG CAPSULE PO SCH (09:44)
[2018-02-19] MEDS: FOLIC ACID 1 MG TABLET PO SCH (09:45)
--- NOTE | 2018-02-19 16:31 | DISCHARGE SUMMARY E ---
Discharge Summary NAME: MARISA GARBER : 1980 AGE: 37Y ADMITTED: 02/16/2018 DISCHARGED: 02/19/2018 DISCHARGE DIAGNOSES INCLUDE: 1. Sickle cell crisis. 2. Opiate dependency, continuous. CODE STATUS: FULL CODE. PRIMARY CARE PROVIDER: [facility] Hematology. CONSULTING INTRAOPERATIVE NEURO TECH: Cierra Pena, DISCHARGE MEDICATIONS INCLUDE: 1. Baclofen 10 mg p.o. q. hour of sleep. 2. Folic Acid 1 mg p.o. daily. 3. Hydroxyurea 2 grams p.o. on Saturday, , Saturday, Saturday. 4. Motrin 600 mg p.o. q.6 hours p.r.n. 5. Methadone 5 mg p.o. b.i.d. 6. Oxycodone 10 mg p.o. q.8 hours p.r.n. DIET: As tolerated. ACTIVITY: As tolerated. CONDITION: Fair. DIAGNOSTICS: Lab values are as follows: Hematology obtained on 02/19/2018: WBCs are 4.5, hemoglobin is 9.3, hematocrit is 26.7, platelet count is 174,000. Chemistry obtained on 02/19/2018: Sodium is 140, potassium 4.1, chloride is 101, carbon dioxide of 31. BUN 9, creatinine 0.68. Glucose 70. Calcium is 8.5. Bilirubin is 1. AST 31, ALT 22, alk phos 58. LDH is 351. Total protein is 7.2. Albumin 3.7. Toxicology obtained on 02/17/2018 is positive for opiates. Chest x-ray obtained on 02/16/2018 reveals cardiac enlargement without evidence of overt failure. VITAL SIGNS: Temperature is 97.9, pulse 62, respirations 16, blood pressure is 122/86, oxygen saturation 97% on room air. HISTORY OF PRESENT ILLNESS: The patient is a 37-year-old -[place] male with a past medical history of sickle cell disease that is well-known to the hospitalist service. The patient presented to the emergency department with a chief complaint of pain that he associated with chronic disease. The patient had a 3-day history of diffuse joint and fascial pain. He denied fever, cough or shortness of breath. While in the emergency department, the patient received Dilaudid and IV Benadryl as requested. The patient was referred to the hospitalist for admission and management. HOSPITAL COURSE: The patient was admitted to the telemetry unit. The patient was given IV fluids and was seen by Dr. Pena of Hematology. The patient was managed by Hematology as well, and the patient's symptoms continued to improve. The patient's O2 was supplemented. The patient's vital signs remained in good range without tachycardia. He remained afebrile. The patient's hemoglobin remained stable in the 9 range, which is near baseline, and the patient has been cleared for discharge from a hematological perspective. DISCHARGE PLAN: The patient is to follow up with [facility] Hematology as already scheduled within 1 to 2 weeks for hospital followup. Time spent on this discharge, including specialty collaboration, was 10 minutes. DICTATING PHYSICIAN: PUSHPA MAGANA NP [id number] PHY#: [id number] ID: [id number] JOB#: [id number] ACCT: [id number] cc:Tanmay CORTES NP > MTDD
[2018-02-19 16:48] VITALS: BP 122/86
== END 2018-02-19 17:50 | disposition home or self-care (01) | DRG 812 ==
LOC: ER 18:58 → EH 20:38 → 5 02-17 00:38
PROVIDERS: ADMIT Internal Medicine; ATTEND Internal Medicine
PROC: 3E0F73Z Introduction of Anti-inflammatory into Respiratory Tract, Via Natural or Artificial Opening (ICD-10-PCS; principal; 2018-02-17)
DX: D57.00 Hb-SS disease with crisis, unspecified (principal); F10.20 Alcohol dependence, uncomplicated; Z79.899 Other long term (current) drug therapy; Z87.891 Personal history of nicotine dependence; Z88.8 Allergy status to other drugs, medicaments and biological substances; Z88.6 Allergy status to analgesic agent; Z88.1 Allergy status to other antibiotic agents; Z88.3 Allergy status to other anti-infective agents; Z91.040 Latex allergy status
CPT/HCPCS: 36415; 36591; 71046; 80048; 80053; 80307; 83615; 85025; 85045; 86850; 86900; 86901; 93005; 93010; 94640; 96361; 96374; 96375; 96376; 99284; 99285; J1170; J1200; J1644; J3490; J7030; J7620

== ENCOUNTER 2018-03-03 20:47 | Emergency (ER) | payer MEDICARE, MEDICAID ==
[2018-03-03] MEDS ORDERED: HYDROMORPHONE HCL INJ/PF 2 MG/ML AMPULE IV ONE (22:58)
[2018-03-03] MEDS ORDERED: DIPHENHYDRAMINE HCL 50 MG/ML VIAL IV ONE (22:58)
--- NOTE | 2018-03-03 23:02 | ER Document Report ---
ED General - General Chief Complaint: Sickle Cell Crisis Stated Complaint: ALL OVER PAIN Time Seen by Provider: 03/03/18 22:35 Notes: Patient is a 37-year-old male sickle cell patient to obtain care in the past and no well. Presents with joint pain. Says it started but midway through the day today. He says whenever the brain is started to occur he will sometimes get joint pain but continued become more severe and his methadone oxycodone at home was not controlling his pain therefore is come to the ER. He is followed by hematology at [facility]. No fevers. No vomiting. No diarrhea. No difficulty breathing. No chest pain. He has history of appendectomy. He still has his gallbladder and spleen. He does have a history of acute chest chest syndrome but says this feels nothing like his previous acute chest syndrome as he has no chest pain or shortness of breath. No recent fevers or infections. No other complaints at this time. TRAVEL OUTSIDE OF THE [place] IN LAST 30 DAYS: No - Related Data Allergies/Adverse Reactions: famotidine [From Pepcid] Allergy (Severe, Verified 02/15/18 00:55) Anaphylaxis ketorolac tromethamine [From Toradol] Allergy (Severe, Verified 02/15/18 00:55) levofloxacin [From Levaquin] Allergy (Severe, Verified 02/15/18 00:55) meperidine HCl [From Demerol] Allergy (Severe, Verified 02/15/18 00:55) morphine [Morphine] Allergy (Severe, Verified 02/15/18 00:55) tramadol HCl [From Ultram] Allergy (Severe, Verified 02/15/18 00:55) amoxicillin [Amoxicillin] Allergy (Verified 02/15/18 00:55) fentanyl [Fentanyl] Allergy (Verified 02/15/18 00:55) latex [Latex] Allergy (Verified 02/15/18 00:55) ondansetron HCl [From Zofran] Allergy (Verified 02/15/18 00:55) Past Medical History - Social History Smoking Status: Never Smoker Frequency of alcohol use: None Drug Abuse: None Family History: Reviewed & Not Pertinent, Other - Refused - Past Medical History Cardiac Medical History: Denies: Hx Atrial Fibrillation, Hx Congestive Heart Failure, Hx Coronary Artery Disease Pulmonary Medical History: Denies: Hx Bronchitis, Hx Tuberculosis Neurological Medical History: Reports: Hx Seizures Endocrine Medical History: Denies: Hx Diabetes Mellitus Type 1, Hx Diabetes Mellitus Type 2 Renal/ Medical History: Denies: Hx Peritoneal Dialysis Musculoskeletal Medical History: Reports Hx Musculoskeletal Deformity - right hip avascular necrosis Psychiatric Medical History: Denies: Hx Depression Past Surgical History: Reports: Hx Appendectomy, Hx Vascular Surgery - L port placement, Other - Port placement - Immunizations Immunizations up to date: Yes Hx Diphtheria, Pertussis, Tetanus Vaccination: Yes Hx Pneumococcal Vaccination: 02/20/11 Review of Systems - Review of Systems Notes: My Normal Review Basic REVIEW OF SYSTEMS: CONSTITUTIONAL : Denies fever, chills, or sweats. Denies recent illness. EENT: Denies eye, ear, throat, or mouth pain or symptoms. Denies nasal or sinus congestion. CARDIOVASCULAR: Denies chest pain. RESPIRATORY: Denies cough, cold, or chest congestion. Denies shortness of breath, difficulty breathing, or wheezing. GASTROINTESTINAL: Denies abdominal pain. Denies nausea, vomiting, or diarrhea. GENITOURINARY: Denies difficulty urinating, painful urination, burning, frequency, or blood in urine. MUSCULOSKELETAL: Pain in his joints. SKIN: Denies rash or skin lesions. HEMATOLOGIC : Sickle cell disease NEUROLOGICAL: Denies altered mental status or loss of consciousness. Denies headache. Denies weakness or paralysis or loss of use of either side. Denies problems with gait or speech. Denies sensory or motor loss. ALL OTHER SYSTEMS REVIEWED AND NEGATIVE. Physical Exam - Vital signs Vitals: Temp Pulse Resp BP Pulse Ox 98.4 F 59 L 12 134/86 H 96 03/03/18 21:22 03/03/18 21:22 03/03/18 21:22 03/03/18 21:22 03/03/18 21:22 - Notes Notes: General Appearance: Well nourished, alert, cooperative, no acute distress, moderate obvious discomfort. Vitals: reviewed, See vital signs table. Eyes: PERRL, EOMI, Conjuctiva clear Mouth: No decreasd moisture Lungs: No wheezing, No rales, No rhonci, No accessory muscle use, good air exchange bilaterally. Heart: Normal rate, Regular rythm, No murmur, no rub Abdomen: Normal BS, soft, No rigidity, mild diffuse abdominal tenderness to palpation., No guarding, no rebound, no abdominal masses, no organomegaly Extremities: strength 5/5 in all extremities, good pulses in all extremities, no redness or swelling to the joints. This generalized achiness to the joints. He is able to move his arms and legs without difficulty. Skin: warm, dry, appropriate color, no rash Neuro: speech clear, oriented x 3, normal affect, responds appropriately to questions. Course - Re-evaluation Re-evalutation: 03/04/18 04:07 Patient says his pain is getting some better but he still has a lot of pain especially in the left side of his body. Pain to the right side is improving. I did reevaluate his left arm and shoulder and elbow and wrist. There is no redness or swelling. No signs of infection. For the patient that it seems that even though his pain is improving some that he still has a lot of pain and therefore said that one option would be to admit him for further pain control as obviously his pain is not completely controlled. Patient says he wants to try one more round of pain medicine in the ER. If at that time his pain is not controlled then he will agree with admission. 03/04/18 05:46 Offered admission again to Mr. Cee. He says he is actually feeling a lot better and wants to go home. He says if he has recurrent pain is not controlled and he will return. There is no signs of acute chest syndrome. His vital signs are normal. Is no chest pain or shortness of breath. He has no symptoms of gallbladder illness or splenic sequestration at this time as he does not have significant abdominal pain. There is no fevers. No signs of infection. Laboratory evaluation is not overtly concerning. Hemoglobin is at his baseline. No leukocytosis. I encourage him return to ER immediately if he has uncontrolled pain or if he has chest pain shortness of breath fevers or feels that he is worsening any way. Patient agrees with plan will be discharged home as he requests. Dictation of this chart was performed using voice recognition software; therefore, there may be some unintended grammatical errors. - Vital Signs Vital signs: Temp Pulse Resp BP Pulse Ox 98.4 F 59 L 17 128/82 H 93 03/03/18 21:22 03/03/18 21:22 03/04/18 05:01 03/04/18 05:00 03/04/18 05:01 - Laboratory Result Diagrams: 03/03/18 23:18 03/03/18 23:18 Laboratory results interpreted by me: 03/03/18 03/03/18 23:18 23:18 RBC 2.71 L Hgb 9.7 L Hct 28.0 L MCV 103 H MCH 35.7 H RDW 18.1 H Plt Count 466 H Basophils % (Manual) 3 H Abs Basophils (Manual) 0.3 H Retic Count (auto) 7.77 H Absolute Retic 0.211 H Total Bilirubin 1.8 H Discharge - Discharge Clinical Impression: Sickle cell anemia Qualifiers: Sickle-cell associated disorders: with unspecified crisis Qualified Code(s): D57.00 - Hb-SS disease with crisis, unspecified; D57.0 - Hb-SS disease with crisis Joint pain Qualifiers: Joint pain location: unspecified Qualified Code(s): M25.50 - Pain in unspecified joint Condition: Good Disposition: HOME, SELF-CARE Additional Instructions: Please take your pain medications as prescribed by your doctor. Please have a low threshold to return to the ER immediately if you have worsening pain, fevers , chest pain, abdominal pain, or any difficulty breathing.
[2018-03-03] MEDS: NORMAL SALINE 1000 ML 1,000 ML IV PRN (23:08)
[2018-03-03 23:33] LABS: ABSOLUTE RETICS # 0.211 10^6/uL (0.028-0.122); HEMOGLOBIN 9.7 g/dL (13.5-17.0); MEAN CORPUSCULAR HEMOGLOBIN 35.7 pg (27.0-33.4); MEAN CORPUSCULAR HGB CONC 34.6 g/dL (32.0-36.0); MEAN CORPUSCULAR VOLUME 103 fl (80-97); PLATELET COUNT 466 10^3/uL (150-450); RED BLOOD COUNT 2.71 10^6/uL (4.35-5.55); RED CELL DISTRIBUTION WIDTH 18.1 % (11.5-14.0); RETICULOCYTE COUNT (AUTO) 7.77 % (0.66-2.85); WHITE BLOOD COUNT 8.7 10^3/uL (4.0-10.5)
[2018-03-03 23:38] LABS: ALANINE AMINOTRANSFERASE 23 U/L (21-72); ALBUMIN 4.2 g/dL (3.5-5.0); ALKALINE PHOSPHATASE 68 U/L (38-126); ANION GAP 12 (5-19); ASPARTATE AMINO TRANSFERASE 26 U/L (17-59); BILIRUBIN,DIRECT 0.4 mg/dL (0.0-0.4); BILIRUBIN,TOTAL 1.8 mg/dL (0.2-1.3); BLOOD UREA NITROGEN 10 mg/dL (7-20); CALCIUM 8.8 mg/dL (8.4-10.2); CARBON DIOXIDE 26 mmol/L (22-30); CHLORIDE 104 mmol/L (98-107); GLUCOSE 87 mg/dL (75-110); POTASSIUM 3.7 mmol/L (3.6-5.0); SODIUM 141.9 mmol/L (137-145); TOTAL PROTEIN 7.7 g/dL (6.3-8.2)
[2018-03-03 23:49] LABS: ABSOLUTE LYMPHOCYTES# (MANUAL) 1.7 10^3/uL (0.5-4.7); ABSOLUTE MONOCYTES # (MANUAL) 0.3 10^3/uL (0.1-1.4); ABSOLUTE NEUTROPHILS# (MANUAL) 6.4 10^3/uL (1.7-8.2); BASOPHILS % (MANUAL) 3 % (0-2); EOSINOPHILS % (MANUAL) 0 % (0-6); LYMPHOCYTES % (MANUAL) 18 % (13-45); MONOCYTES % (MANUAL) 4 % (3-13); SEGMENTED NEUTROPHILS % (MAN) 74 % (42-78); TOTAL CELLS COUNTED 100
[2018-03-03 23:52] LABS: ANISOCYTOSIS 2+; OVALOCYTES 2+; POIKILOCYTOSIS 2+; POLYCHROMASIA 1+; SCHISTOCYTES SLIGHT
[2018-03-03 23:53] LABS: HOWELL-JOLLY BODIES PRESENT; SICKLE RED CELLS SLIGHT; TARGET CELLS 1+; TEAR DROP CELLS SLIGHT
[2018-03-03 23:54] LABS: PLATELET COMMENT INCREASED
[2018-03-04] MEDS ORDERED: HYDROMORPHONE HCL INJ/PF 2 MG/ML AMPULE IV ONE ×3 (00:04→04:07)
[2018-03-04] MEDS: NORMAL SALINE 1000 ML 1,000 ML IV PRN (00:25)
[2018-03-04] MEDS ORDERED: DIPHENHYDRAMINE HCL 50 MG/ML VIAL IV ONE (01:47)
[2018-03-04] MEDS ORDERED: NORMAL SALINE 1000 ML 1,000 ML IV ONE (01:48)
[2018-03-04 05:03] VITALS: BP 128/82
== END 2018-03-04 05:55 | disposition home or self-care (01) ==
LOC: ER 20:47
DX: D57.00 Hb-SS disease with crisis, unspecified (principal); M25.50 Pain in unspecified joint; Z88.0 Allergy status to penicillin; Z88.6 Allergy status to analgesic agent
CPT/HCPCS: 36591; 96376; 99284; 96361; 96374; 96375; 36415; 85025; 85045; 80053; J1200 ×2; J1170 ×2; J7030 ×2

== ENCOUNTER 2018-03-19 22:57 | Emergency (ER) | payer MEDICARE, MEDICAID ==
[2018-03-19] MEDS ORDERED: HYDROMORPHONE HCL INJ/PF 2 MG/ML AMPULE IV ONE (23:25)
[2018-03-19] MEDS ORDERED: NORMAL SALINE 1000 ML 1,000 ML IV ONE (23:25)
[2018-03-19] MEDS ORDERED: DIPHENHYDRAMINE HCL 50 MG/ML VIAL IV ONE (23:25)
--- NOTE | 2018-03-19 23:42 | ER Document Report ---
ED General - General Chief Complaint: Sickle Cell Crisis Stated Complaint: THROAT PAIN/HIP PAIN Time Seen by Provider: 03/19/18 23:25 Notes: Patient is a 37-year-old male who presents with complaint of body aches, intermittent mild sharp chest pain, throat, congestion. Patient says that he has had the symptoms now for several days is gotten worse. 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 He says he is been on his feet and care of his clients and at times becomes lightheaded and dizzy. He says he does not pass out but feels like he seemed close to passing out. Said he had similar symptoms where he actually passed out when he was age 16 and also when he was in the 20s. At that time they told him that he had a seizure once. He has not had any convulsive activities this time. Patient does have history of sickle cell disease. He still has his gallbladder. He still has a spleen. He has had acute chest syndrome before but this feels a little bit different. TRAVEL OUTSIDE OF THE [place] IN LAST 30 DAYS: No - Related Data Allergies/Adverse Reactions: famotidine [From Pepcid] Allergy (Severe, Verified 02/15/18 00:55) Anaphylaxis ketorolac tromethamine [From Toradol] Allergy (Severe, Verified 02/15/18 00:55) levofloxacin [From Levaquin] Allergy (Severe, Verified 02/15/18 00:55) meperidine HCl [From Demerol] Allergy (Severe, Verified 02/15/18 00:55) morphine [Morphine] Allergy (Severe, Verified 02/15/18 00:55) tramadol HCl [From Ultram] Allergy (Severe, Verified 02/15/18 00:55) amoxicillin [Amoxicillin] Allergy (Verified 02/15/18 00:55) fentanyl [Fentanyl] Allergy (Verified 02/15/18 00:55) latex [Latex] Allergy (Verified 02/15/18 00:55) ondansetron HCl [From Zofran] Allergy (Verified 02/15/18 00:55) Past Medical History - Social History Smoking Status: Never Smoker Frequency of alcohol use: None Drug Abuse: None Family History: Reviewed & Not Pertinent, Other - Refused - Past Medical History Cardiac Medical History: Denies: Hx Atrial Fibrillation, Hx Congestive Heart Failure, Hx Coronary Artery Disease Pulmonary Medical History: Denies: Hx Bronchitis, Hx Tuberculosis Neurological Medical History: Reports: Hx Seizures Endocrine Medical History: Denies: Hx Diabetes Mellitus Type 1, Hx Diabetes Mellitus Type 2 Renal/ Medical History: Denies: Hx Peritoneal Dialysis Musculoskeletal Medical History: Reports Hx Musculoskeletal Deformity - right hip avascular necrosis Psychiatric Medical History: Denies: Hx Depression Past Surgical History: Reports: Hx Appendectomy, Hx Vascular Surgery - L port placement, Other - Port placement - Immunizations Immunizations up to date: Yes Hx Diphtheria, Pertussis, Tetanus Vaccination: Yes Hx Pneumococcal Vaccination: 02/20/11 Review of Systems - Review of Systems Notes: My Normal Review Basic REVIEW OF SYSTEMS: CONSTITUTIONAL : Denies fever, chills, or sweats. Last weakness EENT: Sore throat. CARDIOVASCULAR: intermittent Brief sharp left-sided chest pain RESPIRATORY: Mild shortness of breath. No wheezing. No significant coughing. GASTROINTESTINAL: Denies abdominal pain. Denies nausea, vomiting, or diarrhea. MUSCULOSKELETAL: Joint pain. SKIN: Denies rash or skin lesions. NEUROLOGICAL: Becomes lightheaded but does not pass out.. Denies headache. Denies weakness or paralysis or loss of use of either side. Denies problems with gait or speech. Denies sensory or motor loss. ALL OTHER SYSTEMS REVIEWED AND NEGATIVE. Physical Exam - Vital signs Vitals: Temp Pulse Resp BP Pulse Ox 98.4 F 62 16 125/79 97 03/19/18 23:03 03/19/18 23:03 03/19/18 23:03 03/19/18 23:03 03/19/18 23:03 - Notes Notes: General Appearance: Well nourished, alert, cooperative, no acute distress, mild to moderate obvious discomfort. Vitals: reviewed, See vital signs table. Head: no swelling or tenderness to the head Eyes: PERRL, EOMI, Conjuctiva clear Mouth: No decreasd moisture Throat: No tonsillar inflammation, No airway obstruction, No lymphadenopathy. Mild posterior pharyngeal erythema. No stridor or signs of impending airway obstruciton. Neck: Supple, no neck tenderness, No neck swelling Lungs: No wheezing, No rales, No rhonci, No accessory muscle use, good air exchange bilaterally. Heart: Normal rate, Regular rythm, No murmur, no rub Abdomen: Normal BS, soft, No rigidity, mild generalized abdominal tenderness, No guarding, no rebound, no abdominal masses, no organomegaly Extremities: strength 5/5 in all extremities, good pulses in all extremities, no swelling or tenderness in the extremities, no edema. Skin: warm, dry, appropriate color, no rash Neuro: speech clear, oriented x 3, normal affect, responds appropriately to questions. Cranial nerves II through XII are intact. Distal sensation intact. Patient moves all extremities without difficulty. Course - Re-evaluation Re-evalutation: 03/20/18 02:56 Patient still having significant pain. His pain is improved some but it is not gone. I will give him another dose pain meds. He still has some itching and therefore will give him more Benadryl. She otherwise looks well and is not in any clinical distress. 03/20/18 04:44 Patient says he feels that his pain is improved to the point where he can go home. I did offer him admission being that he did require several doses of pain medicine but patient does not want to stay in the hospital and he prefers to go home. He says he will stay to work today. He feels he will go home and rest. He does have just a mild pharyngitis. He does not have any stridor or any signs of airway compromise. His breathing is normal. He looks well. I feel he safe to be discharged home. I encouraged him to have a low threshold to return to the ER if he has intractable pain, fevers, difficulty breathing, sensation to his throat is worsening, or if he has any further concerns. Patient agrees with plan will be discharged home. Dictation of this chart was performed using voice recognition software; therefore, there may be some unintended grammatical errors. - Vital Signs Vital signs: Temp Pulse Resp BP Pulse Ox 98.4 F 62 16 125/79 97 03/19/18 23:03 03/19/18 23:03 03/19/18 23:03 03/19/18 23:03 03/19/18 23:03 - Laboratory Result Diagrams: 03/20/18 00:05 03/20/18 00:05 Laboratory results interpreted by me: 03/20/18 03/20/18 00:05 00:05 RBC 2.76 L Hgb 10.0 L Hct 29.1 L MCV 106 H MCH 36.2 H RDW 19.0 H Seg Neuts % (Manual) 38 L Monocytes % (Manual) 14 H Retic Count (auto) 7.80 H Absolute Retic 0.215 H Glucose 116 H Total Bilirubin 1.8 H ALT 19 L Discharge - Discharge Clinical Impression: Sickle cell crisis Pharyngitis Qualifiers: Pharyngitis/tonsillitis etiology: unspecified etiology Qualified Code(s): J02.9 - Acute pharyngitis, unspecified Condition: Good Disposition: HOME, SELF-CARE Additional Instructions: Please take your travis medications as prescribed. Please rest over the next 24 hours and stay out of the cold weather. Please follow up with your president and cmo on Saturday or Saturday. please return to the ER immediately if you have intractable pain, fevers, difficulty breathing, sensation that your throat is worsening, or if you have any further concerns that you are worsening.
--- NOTE | 2018-03-20 00:28 | RADIOLOGY REPORT (SQ) ---
EXAM DESCRIPTION: XR CHEST 1 VIEW COMPLETED DATE/TME: 03/19/2018 23:35 CLINICAL HISTORY: 37 years, Male, chest pain COMPARISON: 02/16/2018 chest x-ray NUMBER OF VIEWS: 1 TECHNIQUE: AP portable chest LIMITATIONS: None. FINDINGS: Cardiomegaly. [id number] catheter in place. No pneumothorax. Minor scarring in the lung bases. Lungs are otherwise clear IMPRESSION: Stable cardiomegaly. No acute cardiopulmonary process. copyright 2010 [employer]- All Rights Reserved
[2018-03-20 00:31] LABS: ABSOLUTE RETICS # 0.215 10^6/uL (0.028-0.122); HEMATOCRIT 29.1 % (37.9-51.0); MEAN CORPUSCULAR HEMOGLOBIN 36.2 pg (27.0-33.4); MEAN CORPUSCULAR HGB CONC 34.3 g/dL (32.0-36.0); MEAN CORPUSCULAR VOLUME 106 fl (80-97); PLATELET COUNT 208 10^3/uL (150-450); RED BLOOD COUNT 2.76 10^6/uL (4.35-5.55)
[2018-03-20 00:34] LABS: ALANINE AMINOTRANSFERASE 19 U/L (21-72); ALBUMIN 4.1 g/dL (3.5-5.0); ALKALINE PHOSPHATASE 68 U/L (38-126); ANION GAP 11 (5-19); ASPARTATE AMINO TRANSFERASE 27 U/L (17-59); BILIRUBIN,DIRECT 0.1 mg/dL (0.0-0.4); BILIRUBIN,TOTAL 1.8 mg/dL (0.2-1.3); BLOOD UREA NITROGEN 9 mg/dL (7-20); CALCIUM 8.8 mg/dL (8.4-10.2); CARBON DIOXIDE 28 mmol/L (22-30); CHLORIDE 106 mmol/L (98-107); GLUCOSE 116 mg/dL (75-110); POTASSIUM 3.6 mmol/L (3.6-5.0); SODIUM 144.7 mmol/L (137-145); TOTAL PROTEIN 7.7 g/dL (6.3-8.2)
[2018-03-20 00:54] LABS: ABSOLUTE LYMPHOCYTES# (MANUAL) 2.3 10^3/uL (0.5-4.7); ABSOLUTE MONOCYTES # (MANUAL) 0.7 10^3/uL (0.1-1.4); ABSOLUTE NEUTROPHILS# (MANUAL) 1.9 10^3/uL (1.7-8.2); BASOPHILS % (MANUAL) 2 % (0-2); EOSINOPHILS % (MANUAL) 0 % (0-6); LYMPHOCYTES % (MANUAL) 44 % (13-45); MONOCYTES % (MANUAL) 14 % (3-13); NUCLEATED RED BLOOD CELLS 2 /100 WBC (0); SEGMENTED NEUTROPHILS % (MAN) 38 % (42-78); TOTAL CELLS COUNTED 100
[2018-03-20 00:55] LABS: ANISOCYTOSIS 2+; HOWELL-JOLLY BODIES PRESENT; POIKILOCYTOSIS 2+; POLYCHROMASIA 1+; SCHISTOCYTES 2+; SICKLE RED CELLS 2+; TARGET CELLS 2+; TOXIC GRANULATION 1+; TOXIC VACUOLATION PRESENT
[2018-03-20 00:56] LABS: PLATELET COMMENT ADEQUATE; PLATELET LARGE PRESENT
[2018-03-20] MEDS ORDERED: HYDROMORPHONE HCL INJ/PF 2 MG/ML AMPULE IV ONE ×3 (01:26→03:48)
[2018-03-20] MEDS ORDERED: DIPHENHYDRAMINE HCL 50 MG/ML VIAL IV ONE (02:49)
[2018-03-20 05:02] VITALS: BP 135/81
== END 2018-03-20 05:02 | disposition home or self-care (01) ==
LOC: ER 22:57
DX: D57.00 Hb-SS disease with crisis, unspecified (principal); J02.9 Acute pharyngitis, unspecified; L29.9 Pruritus, unspecified; M25.559 Pain in unspecified hip; R06.02 Shortness of breath; R07.9 Chest pain, unspecified; R42 Dizziness and giddiness; Z88.1 Allergy status to other antibiotic agents; Z88.5 Allergy status to narcotic agent; Z88.0 Allergy status to penicillin; Z91.040 Latex allergy status; Z87.892 Personal history of anaphylaxis; Z88.8 Allergy status to other drugs, medicaments and biological substances
CPT/HCPCS: 36591; 96376; 99284; 96361; 96374; 96375; 36415; 87070; 87880; 85025; 85045; 80053; 84484; 71045; J1200 ×2; J1170 ×2; J7030

== ENCOUNTER 2018-03-21 12:19 | Emergency (ER) | payer MEDICARE, MEDICAID ==
[2018-03-21] MEDS ORDERED: NORMAL SALINE 1000 ML 1,000 ML IV ONE ×2 (12:52→18:08)
--- NOTE | 2018-03-21 12:52 | ER Document Report ---
ED Medical Screen (RME) - General Chief Complaint: Sickle Cell Crisis Stated Complaint: BODY PAIN, JOINT PAIN Time Seen by Provider: 03/21/18 12:45 Notes: 37 years old male with a history of sickle cell disease presents to the ER many times, presents today with runny nose general aches and pain and chest wall pain. TRAVEL OUTSIDE OF THE [place] IN LAST 30 DAYS: No - Related Data Allergies/Adverse Reactions: famotidine [From Pepcid] Allergy (Severe, Verified 03/21/18 12:20) Anaphylaxis ketorolac tromethamine [From Toradol] Allergy (Severe, Verified 03/21/18 12:20) levofloxacin [From Levaquin] Allergy (Severe, Verified 03/21/18 12:20) meperidine HCl [From Demerol] Allergy (Severe, Verified 03/21/18 12:20) morphine [Morphine] Allergy (Severe, Verified 03/21/18 12:20) tramadol HCl [From Ultram] Allergy (Severe, Verified 03/21/18 12:20) amoxicillin [Amoxicillin] Allergy (Verified 03/21/18 12:20) fentanyl [Fentanyl] Allergy (Verified 03/21/18 12:20) latex [Latex] Allergy (Verified 03/21/18 12:20) ondansetron HCl [From Zofran] Allergy (Verified 03/21/18 12:20) Past Medical History - Social History Chew tobacco use (# tins/day): No Frequency of alcohol use: None Drug Abuse: None - Past Medical History Cardiac Medical History: Denies: Hx Atrial Fibrillation, Hx Congestive Heart Failure, Hx Coronary Artery Disease Pulmonary Medical History: Denies: Hx Bronchitis, Hx Tuberculosis Neurological Medical History: Reports: Hx Seizures Endocrine Medical History: Denies: Hx Diabetes Mellitus Type 1, Hx Diabetes Mellitus Type 2 Renal/ Medical History: Denies: Hx Peritoneal Dialysis Musculoskeltal Medical History: Reports Hx Musculoskeletal Deformity - right hip avascular necrosis Psychiatric Medical History: Denies: Hx Depression Past Surgical History: Reports: Hx Appendectomy, Hx Vascular Surgery - L port placement, Other - Port placement - Immunizations Immunizations up to date: Yes Hx Diphtheria, Pertussis, Tetanus Vaccination: Yes Physical Exam - Vital signs Vitals: Temp Pulse Resp BP Pulse Ox 98.6 F 79 16 123/83 96 03/21/18 12:23 03/21/18 12:23 03/21/18 12:23 03/21/18 12:23 03/21/18 12:23 Course - Vital Signs Vital signs: Temp Pulse Resp BP Pulse Ox 98.6 F 79 16 123/83 96 03/21/18 12:23 03/21/18 12:23 03/21/18 12:23 03/21/18 12:23 03/21/18 12:23
[2018-03-21 13:53] LABS: ABSOLUTE RETICS # 0.194 10^6/uL (0.028-0.122); HEMOGLOBIN 10.4 g/dL (13.5-17.0); MEAN CORPUSCULAR HEMOGLOBIN 36.5 pg (27.0-33.4); MEAN CORPUSCULAR HGB CONC 34.6 g/dL (32.0-36.0); MEAN CORPUSCULAR VOLUME 106 fl (80-97); PLATELET COUNT 191 10^3/uL (150-450); RED BLOOD COUNT 2.84 10^6/uL (4.35-5.55); RED CELL DISTRIBUTION WIDTH 18.1 % (11.5-14.0); RETICULOCYTE COUNT (AUTO) 6.82 % (0.66-2.85); WHITE BLOOD COUNT 4.3 10^3/uL (4.0-10.5)
[2018-03-21 14:11] LABS: ALANINE AMINOTRANSFERASE 17 U/L (21-72); ALBUMIN 4.3 g/dL (3.5-5.0); ALKALINE PHOSPHATASE 60 U/L (38-126); ANION GAP 11 (5-19); ASPARTATE AMINO TRANSFERASE 31 U/L (17-59); BILIRUBIN,DIRECT 0.2 mg/dL (0.0-0.4); BILIRUBIN,TOTAL 1.8 mg/dL (0.2-1.3); BLOOD UREA NITROGEN 5 mg/dL (7-20); CALCIUM 9.2 mg/dL (8.4-10.2); CARBON DIOXIDE 28 mmol/L (22-30); CHLORIDE 105 mmol/L (98-107); GLUCOSE 94 mg/dL (75-110); SODIUM 144.1 mmol/L (137-145); TOTAL PROTEIN 8.1 g/dL (6.3-8.2)
[2018-03-21 14:20] LABS: ABSOLUTE LYMPHOCYTES# (MANUAL) 1.8 10^3/uL (0.5-4.7); ABSOLUTE MONOCYTES # (MANUAL) 0.5 10^3/uL (0.1-1.4); ABSOLUTE NEUTROPHILS# (MANUAL) 1.9 10^3/uL (1.7-8.2); BASOPHILS % (MANUAL) 3 % (0-2); EOSINOPHILS % (MANUAL) 0 % (0-6); LYMPHOCYTES % (MANUAL) 41 % (13-45); MONOCYTES % (MANUAL) 11 % (3-13); NUCLEATED RED BLOOD CELLS 2 /100 WBC (0); SEGMENTED NEUTROPHILS % (MAN) 45 % (42-78); TOTAL CELLS COUNTED 100
[2018-03-21 14:21] LABS: ANISOCYTOSIS 2+; POIKILOCYTOSIS 3+
[2018-03-21 14:22] LABS: SICKLE RED CELLS SLIGHT
[2018-03-21 14:23] LABS: HOWELL-JOLLY BODIES PRESENT; PLATELET COMMENT ADEQUATE; POLYCHROMASIA 2+; SCHISTOCYTES SLIGHT; TARGET CELLS 2+; TEAR DROP CELLS SLIGHT
[2018-03-21] MEDS ORDERED: HYDROMORPHONE HCL INJ/PF 2 MG/ML AMPULE IV ONE ×4 (16:03→20:07)
[2018-03-21] MEDS ORDERED: DIPHENHYDRAMINE HCL 50 MG/ML VIAL IV ONE ×3 (16:03→20:07)
[2018-03-21] MEDS ORDERED: HYDROXYUREA 500 MG CAPSULE PO ONE (18:05)
[2018-03-21] MEDS ORDERED: FOLIC ACID INJ 5 MG/1 ML 10 ML VIAL IV ONE (18:05)
--- NOTE | 2018-03-21 19:23 | ER Document Report ---
ED General - General Chief Complaint: Sickle Cell Crisis Stated Complaint: BODY PAIN, JOINT PAIN Time Seen by Provider: 03/21/18 12:45 Mode of Arrival: Ambulatory Information source: Patient Notes: This is a 37-year-old man with a history of sickle cell disease who presents to the emergency room with chest, body pain and joint pain consistent with typical vaso-occlusive crisis. The patient denies any nausea, vomiting. The patient denies fever or chills. TRAVEL OUTSIDE OF THE [place] IN LAST 30 DAYS: No - HPI Onset: Yesterday Onset/Duration: Gradual Quality of pain: Dull Severity: Moderate Pain Level: 3 Associated symptoms: denies: Chills, Fever, Shortness of breath Exacerbated by: Movement Relieved by: Denies Similar symptoms previously: Yes Recently seen / treated by doctor: Yes - Related Data Allergies/Adverse Reactions: famotidine [From Pepcid] Allergy (Severe, Verified 03/21/18 12:20) Anaphylaxis ketorolac tromethamine [From Toradol] Allergy (Severe, Verified 03/21/18 12:20) levofloxacin [From Levaquin] Allergy (Severe, Verified 03/21/18 12:20) meperidine HCl [From Demerol] Allergy (Severe, Verified 03/21/18 12:20) morphine [Morphine] Allergy (Severe, Verified 03/21/18 12:20) tramadol HCl [From Ultram] Allergy (Severe, Verified 03/21/18 12:20) amoxicillin [Amoxicillin] Allergy (Verified 03/21/18 12:20) fentanyl [Fentanyl] Allergy (Verified 03/21/18 12:20) latex [Latex] Allergy (Verified 03/21/18 12:20) ondansetron HCl [From Zofran] Allergy (Verified 03/21/18 12:20) Past Medical History - General Information source: Patient - Social History Smoking Status: Former Smoker Cigarette use (# per day): No Chew tobacco use (# tins/day): No Frequency of alcohol use: None Drug Abuse: None Lives with: Family Family History: Reviewed & Not Pertinent, Other - Refused Patient has suicidal ideation: No Patient has homicidal ideation: No - Medical History Medical History: Other - Sickle cell disease - Past Medical History Cardiac Medical History: Denies: Hx Atrial Fibrillation, Hx Congestive Heart Failure, Hx Coronary Artery Disease Pulmonary Medical History: Denies: Hx Bronchitis, Hx Tuberculosis Neurological Medical History: Reports: Hx Seizures Endocrine Medical History: Denies: Hx Diabetes Mellitus Type 1, Hx Diabetes Mellitus Type 2 Renal/ Medical History: Denies: Hx Peritoneal Dialysis Musculoskeletal Medical History: Reports Hx Musculoskeletal Deformity - right hip avascular necrosis Psychiatric Medical History: Denies: Hx Depression Past Surgical History: Reports: Hx Appendectomy, Hx Vascular Surgery - L port placement, Other - Port placement - Immunizations Immunizations up to date: Yes Hx Diphtheria, Pertussis, Tetanus Vaccination: Yes Hx Pneumococcal Vaccination: 02/20/11 Review of Systems - Review of Systems Constitutional: denies: Chills, Fever EENT: No symptoms reported Cardiovascular: No symptoms reported Respiratory: No symptoms reported Gastrointestinal: No symptoms reported Genitourinary: No symptoms reported Male Genitourinary: No symptoms reported Musculoskeletal: See HPI Skin: No symptoms reported Hematologic/Lymphatic: No symptoms reported Neurological/Psychological: No symptoms reported Physical Exam - Vital signs Vitals: Temp Pulse Resp BP Pulse Ox 98.6 F 79 16 123/83 96 03/21/18 12:23 03/21/18 12:23 03/21/18 12:23 03/21/18 12:23 03/21/18 12:23 Notes: Physical exam: GENERAL: She is alert and oriented x3, complaining of diffuse joint pain. HEAD: Atraumatic, normocephalic. EYES: Pupils equal round and reactive to light, extraocular movements intact, sclera anicteric, conjunctiva are normal. ENT: TMs normal, nares patent, oropharynx clear without exudates. Moist mucous membranes. NECK: Normal range of motion, supple without obvious mass or JVD. LUNGS: Breath sounds clear to auscultation bilaterally and equal. No wheezes rales or rhonchi. HEART: Regular rate and rhythm without murmurs, rubs or gallops. ABDOMEN: Soft, normoactive bowel sounds. No tenderness to palpation. No guarding, no rebound. No masses appreciated. EXTREMITIES: Normal range of motion, no pitting or edema. No clubbing or cyanosis. NEUROLOGICAL: Cranial nerves II through XII grossly intact. Normal speech, moving all extremities. PSYCH: Normal mood, normal affect. SKIN: Warm, Dry, normal turgor, no rashes or lesions noted. Course - Re-evaluation Re-evalutation: 03/21/18 20:42 Patient treated with IV fluids, IV pain medicine, IV antiemetics, hydroxyurea and folic acid. - Vital Signs Vital signs: Temp Pulse Resp BP Pulse Ox 98.6 F 79 12 133/93 H 100 03/21/18 12:23 03/21/18 12:23 03/21/18 20:51 03/21/18 20:51 03/21/18 20:51 - Laboratory Result Diagrams: 03/21/18 13:18 03/21/18 13:18 Laboratory results interpreted by me: 03/21/18 03/21/18 13:18 13:18 RBC 2.84 L Hgb 10.4 L Hct 30.0 L MCV 106 H MCH 36.5 H RDW 18.1 H Basophils % (Manual) 3 H Retic Count (auto) 6.82 H Absolute Retic 0.194 H BUN 5 L Total Bilirubin 1.8 H ALT 17 L Discharge - Discharge Clinical Impression: Sickle cell vaso-occlusive crisis Condition: Stable Disposition: HOME, SELF-CARE Additional Instructions: Recommendations: 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 Drink plenty of fluids, continue current medicines. Return to the emergency room for worsening pain, fever (temperature greater than 100.4), shortness of breath or any concerns or getting worse.
[2018-03-21 20:53] VITALS: BP 133/93
== END 2018-03-21 20:54 | disposition home or self-care (01) ==
LOC: ER 12:19
DX: D57.00 Hb-SS disease with crisis, unspecified (principal); Z88.3 Allergy status to other anti-infective agents; Z88.6 Allergy status to analgesic agent; Z88.0 Allergy status to penicillin; Z91.040 Latex allergy status
CPT/HCPCS: 36591; 96376; 99284; 96361; 96374; 96375; 36415; 85025; 85045; 80053; J1200; J3490; J1170; J7030; A9270

== ENCOUNTER 2018-03-22 15:33 | Emergency (ER) | payer MEDICARE, MEDICAID ==
[2018-03-22] MEDS ORDERED: NORMAL SALINE 1000 ML 1,000 ML IV ONE (16:10)
[2018-03-22] MEDS ORDERED: DIPHENHYDRAMINE HCL 50 MG/ML VIAL IV ONE ×2 (16:11→19:56)
[2018-03-22] MEDS ORDERED: HYDROMORPHONE HCL INJ/PF 2 MG/ML AMPULE IV ONE (16:11)
--- NOTE | 2018-03-22 16:13 | ER Document Report ---
ED Medical Screen (RME) - General Chief Complaint: Sickle Cell Crisis Stated Complaint: STOMACH/BACK PAIN Time Seen by Provider: 03/22/18 15:58 Notes: Patient is a 37-year-old male that presents to the emergency department for chief complaint of chest pain, shortness of breath, and joint pain. Patient has sickle cell disease, has had several days of the symptoms, progressing through today. He does have a history of acute chest syndrome last time was when he was 23 years old. ROS: Other than noted above, the 12 point review of systems was reviewed with the patient and were negative, all pertinent findings are included in the HPI. PHYSICAL EXAMINATION: Vital signs reviewed. GENERAL: Well-appearing, well-nourished and in no acute distress. HEAD: Atraumatic, normocephalic. EYES: Pupils equal round extraocular movements intact, conjunctiva are normal. ENT: Nares patent NECK: Normal range of motion CV: Heart regular rate and rhythm LUNGS: No respiratory distress, lungs clear to auscultation. Musculoskeletal: Normal range of motion NEUROLOGICAL: Normal speech PSYCH: Normal mood, normal affect. MDM: Patient seen and examined for rapid initial assessment. Vital signs reviewed. A comprehensive ED assessment and evaluation of the patient, analysis of test results and completion of the medical decision making process will be conducted by additional ED providers. *Note is created using voice recognition software and may contain spelling, syntax or grammatical errors. TRAVEL OUTSIDE OF THE [place] IN LAST 30 DAYS: No - Related Data Allergies/Adverse Reactions: famotidine [From Pepcid] Allergy (Severe, Verified 03/22/18 15:57) Anaphylaxis ketorolac tromethamine [From Toradol] Allergy (Severe, Verified 03/22/18 15:57) levofloxacin [From Levaquin] Allergy (Severe, Verified 03/22/18 15:57) meperidine HCl [From Demerol] Allergy (Severe, Verified 03/22/18 15:57) morphine [Morphine] Allergy (Severe, Verified 03/22/18 15:57) tramadol HCl [From Ultram] Allergy (Severe, Verified 03/22/18 15:57) amoxicillin [Amoxicillin] Allergy (Verified 03/22/18 15:57) fentanyl [Fentanyl] Allergy (Verified 03/22/18 15:57) latex [Latex] Allergy (Verified 03/22/18 15:57) ondansetron HCl [From Zofran] Allergy (Verified 03/22/18 15:57) Past Medical History - Social History Chew tobacco use (# tins/day): No Frequency of alcohol use: None Drug Abuse: None - Past Medical History Cardiac Medical History: Denies: Hx Atrial Fibrillation, Hx Congestive Heart Failure, Hx Coronary Artery Disease Pulmonary Medical History: Denies: Hx Bronchitis, Hx Tuberculosis Neurological Medical History: Reports: Hx Seizures Endocrine Medical History: Denies: Hx Diabetes Mellitus Type 1, Hx Diabetes Mellitus Type 2 Renal/ Medical History: Denies: Hx Peritoneal Dialysis Musculoskeltal Medical History: Reports Hx Musculoskeletal Deformity - right hip avascular necrosis Psychiatric Medical History: Denies: Hx Depression Past Surgical History: Reports: Hx Appendectomy, Hx Vascular Surgery - L port placement, Other - Port placement - Immunizations Immunizations up to date: Yes Hx Diphtheria, Pertussis, Tetanus Vaccination: Yes Physical Exam - Vital signs Vitals: Temp Pulse Resp BP Pulse Ox 98.8 F 68 16 130/81 H 97 03/22/18 15:46 03/22/18 15:46 03/22/18 15:46 03/22/18 15:46 03/22/18 15:46 Course - Vital Signs Vital signs: Temp Pulse Resp BP Pulse Ox 98.8 F 68 16 130/81 H 97 03/22/18 15:46 03/22/18 15:46 03/22/18 15:46 03/22/18 15:46 03/22/18 15:46
--- NOTE | 2018-03-22 16:45 | RADIOLOGY REPORT (SQ) ---
EXAM DESCRIPTION: CHEST 2 VIEWS COMPLETED DATE/TIME: 03/22/2018 4:27 pm REASON FOR STUDY: chest pain, sob, hx sickle cell COMPARISON: 03/20/2018 EXAM PARAMETERS: NUMBER OF VIEWS: two views TECHNIQUE: Digital Frontal and Lateral radiographic views of the chest acquired. RADIATION DOSE: NA LIMITATIONS: none FINDINGS: LUNGS AND PLEURA: No opacities, masses or pneumothorax. No pleural effusion. MEDIASTINUM AND HILAR STRUCTURES: No masses or contour abnormalities. HEART AND VASCULAR STRUCTURES: Stable cardiomegaly. BONES: No acute findings. HARDWARE: A left chest wall Port-A-Cath appears stable in position. OTHER: No other significant finding. IMPRESSION: Stable radiographic appearance of the chest. TECHNICAL DOCUMENTATION: JOB ID: [id number] [employer]- All Rights Reserved Reading location - IP/workstation name: [email or web address]
[2018-03-22 17:19] LABS: A TYPE INFLUENZA AG NEGATIVE (NEGATIVE); B INFLUENZA AG NEGATIVE (NEGATIVE)
[2018-03-22 18:02] LABS: ABSOLUTE RETICS # 0.184 10^6/uL (0.028-0.122); HEMOGLOBIN 10.2 g/dL (13.5-17.0); MEAN CORPUSCULAR HGB CONC 34.1 g/dL (32.0-36.0); MEAN CORPUSCULAR VOLUME 106 fl (80-97); PLATELET COUNT 172 10^3/uL (150-450); RED BLOOD COUNT 2.84 10^6/uL (4.35-5.55); RED CELL DISTRIBUTION WIDTH 17.4 % (11.5-14.0); RETICULOCYTE COUNT (AUTO) 6.46 % (0.66-2.85); WHITE BLOOD COUNT 4.1 10^3/uL (4.0-10.5)
[2018-03-22 18:12] LABS: ALANINE AMINOTRANSFERASE 16 U/L (21-72); ALBUMIN 4.3 g/dL (3.5-5.0); ALKALINE PHOSPHATASE 63 U/L (38-126); ANION GAP 10 (5-19); ASPARTATE AMINO TRANSFERASE 33 U/L (17-59); BILIRUBIN,DIRECT 0.3 mg/dL (0.0-0.4); BILIRUBIN,TOTAL 1.4 mg/dL (0.2-1.3); BLOOD UREA NITROGEN 7 mg/dL (7-20); CALCIUM 9.1 mg/dL (8.4-10.2); CARBON DIOXIDE 29 mmol/L (22-30); CHLORIDE 105 mmol/L (98-107); GLUCOSE 92 mg/dL (75-110); POTASSIUM 3.8 mmol/L (3.6-5.0); SODIUM 144.4 mmol/L (137-145); TOTAL PROTEIN 8.2 g/dL (6.3-8.2)
[2018-03-22 18:26] LABS: ABSOLUTE LYMPHOCYTES# (MANUAL) 1.6 10^3/uL (0.5-4.7); ABSOLUTE MONOCYTES # (MANUAL) 0.5 10^3/uL (0.1-1.4); ABSOLUTE NEUTROPHILS# (MANUAL) 1.9 10^3/uL (1.7-8.2); BASOPHILS % (MANUAL) 1 % (0-2); EOSINOPHILS % (MANUAL) 2 % (0-6); LYMPHOCYTES % (MANUAL) 38 % (13-45); MONOCYTES % (MANUAL) 13 % (3-13); SEGMENTED NEUTROPHILS % (MAN) 46 % (42-78); TOTAL CELLS COUNTED 100
[2018-03-22 18:28] LABS: ANISOCYTOSIS 1+; OVALOCYTES 1+; PLATELET COMMENT ADEQUATE; POIKILOCYTOSIS 2+; POLYCHROMASIA SLIGHT; SICKLE RED CELLS SLIGHT; TARGET CELLS 1+
[2018-03-22] MEDS: HYDROMORPHONE HCL INJ/PF 2 MG/ML AMPULE IV PRN ×3 (18:33→21:31)
--- NOTE | 2018-03-22 19:57 | ER Document Report ---
ED General - General Chief Complaint: Sickle Cell Crisis Stated Complaint: STOMACH/BACK PAIN Time Seen by Provider: 03/22/18 15:58 Notes: Patient is a 37-year-old male with a past medical history of sickle cell anemia who presents with acute pain crisis. Patient states that he is having pain in his bilateral elbows and knees as well as in his chest. Pain in these locations is described as being aching, throbbing, constant pain. He considers the pain to be moderately severe. Patient states that the symptoms have been ongoing for the past 48 hours and feels similar to prior pain crises that he has had in the past. He has been using his methadone at home with no relief. Nothing seems to trigger or worsen his symptoms although he states that he is concerned it could be related to recent weather changes. Denies fever, vomiting or shortness of breath. He has not seen his primary doctor regarding today's concerns. TRAVEL OUTSIDE OF THE [place] IN LAST 30 DAYS: No - Related Data Allergies/Adverse Reactions: famotidine [From Pepcid] Allergy (Severe, Verified 03/22/18 15:57) Anaphylaxis ketorolac tromethamine [From Toradol] Allergy (Severe, Verified 03/22/18 15:57) levofloxacin [From Levaquin] Allergy (Severe, Verified 03/22/18 15:57) meperidine HCl [From Demerol] Allergy (Severe, Verified 03/22/18 15:57) morphine [Morphine] Allergy (Severe, Verified 03/22/18 15:57) tramadol HCl [From Ultram] Allergy (Severe, Verified 03/22/18 15:57) amoxicillin [Amoxicillin] Allergy (Verified 03/22/18 15:57) fentanyl [Fentanyl] Allergy (Verified 03/22/18 15:57) latex [Latex] Allergy (Verified 03/22/18 15:57) ondansetron HCl [From Zofran] Allergy (Verified 03/22/18 15:57) Past Medical History - Social History Smoking Status: Never Smoker Chew tobacco use (# tins/day): No Frequency of alcohol use: None Drug Abuse: None Lives with: Family Family History: Reviewed & Not Pertinent, Other - Refused Patient has suicidal ideation: No Patient has homicidal ideation: No - Past Medical History Cardiac Medical History: Denies: Hx Atrial Fibrillation, Hx Congestive Heart Failure, Hx Coronary Artery Disease Pulmonary Medical History: Denies: Hx Bronchitis, Hx Tuberculosis Neurological Medical History: Reports: Hx Seizures Endocrine Medical History: Denies: Hx Diabetes Mellitus Type 1, Hx Diabetes Mellitus Type 2 Renal/ Medical History: Denies: Hx Peritoneal Dialysis Musculoskeletal Medical History: Reports Hx Musculoskeletal Deformity - right hip avascular necrosis Psychiatric Medical History: Denies: Hx Depression Past Surgical History: Reports: Hx Appendectomy, Hx Vascular Surgery - L port placement, Other - Port placement - Immunizations Immunizations up to date: Yes Hx Diphtheria, Pertussis, Tetanus Vaccination: Yes Hx Pneumococcal Vaccination: 02/20/11 Review of Systems - Review of Systems Notes: Constitutional: Negative for fever. HENT: Negative for sore throat. Eyes: Negative for visual changes. Cardiovascular: Positive for chest discomfort Respiratory: Negative for shortness of breath. Gastrointestinal: Negative for abdominal pain, vomiting or diarrhea. Genitourinary: Negative for dysuria. Musculoskeletal: Positive for diffuse joint pain Skin: Negative for rash. Neurological: Negative for headaches, weakness or numbness. 10 point ROS negative except as marked above and in HPI. Physical Exam - Vital signs Vitals: Temp Pulse Resp BP Pulse Ox 98.8 F 68 16 130/81 H 97 03/22/18 15:46 03/22/18 15:46 03/22/18 15:46 03/22/18 15:46 03/22/18 15:46 Interpretation: Normal Notes: PHYSICAL EXAMINATION: GENERAL: Well-appearing, well-nourished and in no acute distress. HEAD: Atraumatic, normocephalic. EYES: Pupils equal round and reactive to light, extraocular movements intact, sclera anicteric, conjunctiva are normal. ENT: nares patent, oropharynx clear without exudates. Moist mucous membranes. NECK: Normal range of motion, supple without lymphadenopathy LUNGS: Breath sounds clear to auscultation bilaterally and equal. No wheezes rales or rhonchi. HEART: Regular rate and rhythm without murmurs ABDOMEN: Soft, nontender, normoactive bowel sounds. No guarding, no rebound. No masses appreciated. EXTREMITIES: Normal range of motion, no pitting or edema. No cyanosis. NEUROLOGICAL: No focal neurological deficits. Moves all extremities spontaneously and on command. PSYCH: Normal mood, normal affect. SKIN: Warm, Dry, normal turgor, no rashes or lesions noted. Course - Re-evaluation Re-evalutation: 03/22/18 19:57 Presentation is most consistent with an uncomplicated sickle cell pain crisis. Patient has no evidence of an aplastic crisis on labs. Chest x-ray and vitals are not consistent with acute chest syndrome. Vitals have remained within normal limits here in the emergency department. Patient's pain has been able to be controlled using IV analgesia. The patient is agreeable to discharge home at this time. I recommended that they follow closely with their primary ostomy care nurse. Return precautions have been reviewed and discussed and patient has verbalized indications to return to the emergency department. - Vital Signs Vital signs: Temp Pulse Resp BP Pulse Ox 98.1 F 50 L 18 144/87 H 100 03/22/18 21:17 03/22/18 21:17 03/22/18 21:17 03/22/18 21:17 03/22/18 21:17 - Laboratory Result Diagrams: 03/22/18 17:33 03/22/18 17:33 Laboratory results interpreted by me: 03/22/18 03/22/18 17:33 17:33 RBC 2.84 L Hgb 10.2 L Hct 30.0 L MCV 106 H MCH 36.0 H RDW 17.4 H Retic Count (auto) 6.46 H Absolute Retic 0.184 H Total Bilirubin 1.4 H ALT 16 L - Diagnostic Test Radiology reviewed: Image reviewed, Reports reviewed Radiology results interpreted by me: 03/22/18 19:57 Chest x-ray: No acute infiltrate Discharge - Discharge Clinical Impression: Sickle cell pain crisis Joint pain Qualifiers: Joint pain location: unspecified Qualified Code(s): M25.50 - Pain in unspecified joint Condition: Good Disposition: HOME, SELF-CARE Additional Instructions: You were seen today for sickle cell pain crisis. Please follow-up with your ostomy care nurse. Returning to the ED if you have worsening pain, fever greater than 100.4, shortness of breath, persistent vomiting, or any other symptoms that are concerning to you.
[2018-03-22 21:18] VITALS: BP 144/87
--- NOTE | 2018-03-22 22:35 | EKG REPORT ---
SEVERITY:- ABNORMAL ECG - SINUS RHYTHM LEFT VENTRICULAR HYPERTROPHY : Confirmed by: Emre Montoya MD 22-Mar-2018 22:34:36
== END 2018-03-22 21:50 | disposition home or self-care (01) ==
LOC: ER 15:33
DX: D57.00 Hb-SS disease with crisis, unspecified (principal); M25.521 Pain in right elbow; M25.522 Pain in left elbow; M25.561 Pain in right knee; M25.562 Pain in left knee; R07.9 Chest pain, unspecified; Z88.8 Allergy status to other drugs, medicaments and biological substances; Z88.1 Allergy status to other antibiotic agents; Z88.5 Allergy status to narcotic agent; Z88.0 Allergy status to penicillin; Z91.040 Latex allergy status
CPT/HCPCS: 93005; 96376; 99284; 96361; 96374; 96375; 36415; 85025; 85045; 80053; 84484; 87804; 71046; 93010; J1200; J1170; J7030

== ENCOUNTER 2018-04-11 21:56 | Emergency (ER) | payer MEDICARE, MEDICAID ==
[2018-04-11 22:08] VITALS: BP 121/82
[2018-04-11] MEDS ORDERED: HYDROMORPHONE HCL INJ/PF 2 MG/ML AMPULE IV ONE (23:52)
[2018-04-11] MEDS ORDERED: DIPHENHYDRAMINE HCL 50 MG/ML VIAL IV ONE (23:53)
[2018-04-12 00:14] LABS: ALANINE AMINOTRANSFERASE 22 U/L (21-72); ALBUMIN 4.2 g/dL (3.5-5.0); ALKALINE PHOSPHATASE 74 U/L (38-126); ANION GAP 10 (5-19); ASPARTATE AMINO TRANSFERASE 42 U/L (17-59); BILIRUBIN,DIRECT 0.3 mg/dL (0.0-0.4); BILIRUBIN,TOTAL 1.5 mg/dL (0.2-1.3); BLOOD UREA NITROGEN 12 mg/dL (7-20); CALCIUM 8.9 mg/dL (8.4-10.2); CARBON DIOXIDE 26 mmol/L (22-30); CHLORIDE 105 mmol/L (98-107); GLUCOSE 107 mg/dL (75-110); POTASSIUM 3.9 mmol/L (3.6-5.0); SODIUM 140.6 mmol/L (137-145); TOTAL PROTEIN 7.8 g/dL (6.3-8.2)
--- NOTE | 2018-04-12 00:44 | RADIOLOGY REPORT (SQ) ---
EXAM DESCRIPTION: XR CHEST 2 VIEWS COMPLETED DATE/TME: 04/11/2018 23:50 CLINICAL HISTORY: 37 years Male, [place] congestion COMPARISON:11/03/2017, 12/30/2015 NUMBER OF VIEWS/TECHNIQUE: 2, Frontal, Lateral FINDINGS: Adequate lung volume, small chronic streaky and patchy opacities in bilateral lower lungs may indicate scar or fibrosis, normal cardiac silhouette, and intact bony thorax. Left jugular miniport central line tip at the SVC. Stable. IMPRESSION: No acute cardiopulmonary findings. Chronic bilateral lower lobar scar.
[2018-04-12 00:55] LABS: ABSOLUTE RETICS # 0.274 10^6/uL (0.028-0.122); HEMATOCRIT 28.4 % (37.9-51.0); MEAN CORPUSCULAR HEMOGLOBIN 35.9 pg (27.0-33.4); MEAN CORPUSCULAR VOLUME 103 fl (80-97); PLATELET COUNT 365 10^3/uL (150-450); RED BLOOD COUNT 2.77 10^6/uL (4.35-5.55); RED CELL DISTRIBUTION WIDTH 18.9 % (11.5-14.0); RETICULOCYTE COUNT (AUTO) 9.88 % (0.66-2.85); WHITE BLOOD COUNT 5.7 10^3/uL (4.0-10.5)
[2018-04-12 01:15] LABS: ABSOLUTE LYMPHOCYTES# (MANUAL) 2.5 10^3/uL (0.5-4.7); ABSOLUTE MONOCYTES # (MANUAL) 0.7 10^3/uL (0.1-1.4); ABSOLUTE NEUTROPHILS# (MANUAL) 2.5 10^3/uL (1.7-8.2); BASOPHILS % (MANUAL) 0 % (0-2); EOSINOPHILS % (MANUAL) 0 % (0-6); LYMPHOCYTES % (MANUAL) 43 % (13-45); MONOCYTES % (MANUAL) 13 % (3-13); NUCLEATED RED BLOOD CELLS 2 /100 WBC (0); SEGMENTED NEUTROPHILS % (MAN) 44 % (42-78); TOTAL CELLS COUNTED 100
[2018-04-12 01:16] LABS: PLATELET COMMENT ADEQUATE; SICKLE RED CELLS 1+
[2018-04-12 01:17] LABS: ANISOCYTOSIS 2+; POLYCHROMASIA 2+
[2018-04-12] MEDS ORDERED: HYDROMORPHONE HCL INJ/PF 2 MG/ML AMPULE IV ONE ×2 (01:24→02:37)
[2018-04-12 03:43] LABS: APPEARANCE,URINE CLEAR; BILIRUBIN,URINE NEGATIVE (NEGATIVE); COLOR,URINE YELLOW; GLUCOSE, URINE NEGATIVE (NEGATIVE); KETONES,URINE NEGATIVE (NEGATIVE); LEUKOCYTE ESTERASE,URINE NEGATIVE (NEGATIVE); NITRITE,URINE NEGATIVE (NEGATIVE); PROTEIN,URINE NEGATIVE (NEGATIVE); URINE SPECIFIC GRAVITY 1.013; UROBILINOGEN,URINE NEGATIVE mg/dL (<2.0)
--- NOTE | 2018-04-12 03:49 | ER Document Report ---
ED General - General Chief Complaint: Sickle Cell Crisis Stated Complaint: SICKLE CELL CRISIS Time Seen by Provider: 04/11/18 23:35 Notes: Patient is a 37-year-old male presenting to the emergency department complaining of sickle cell pain. Patient states around 800 hours he noticed that to the pain in bilateral elbows bilateral knees lateral ankles have gotten so bad that he needed to present to the emergency room. She states when the weather gets colder he typically has increase in pain and typically gets headaches. Patient states he does take methadone at home for his sickle cell pain and has not taken it since this morning. Patient states his anesthesiology faculty is Dr. Medellin. Patient is denying any chest pain but does state he has a runny nose and cough. Patient's denying any fever. Patient states the pain he is having is his typical sickle cell pain he is denying any trauma, change, or difference in his pain. Past medical history: Sickle cell, right AVN Medications: Folic acid, hydroxyurea, methadone Allergies: Pepcid, Toradol, levofloxacin, Demerol, fentanyl, amoxicillin, Zofran TRAVEL OUTSIDE OF THE [place] IN LAST 30 DAYS: No - Related Data Allergies/Adverse Reactions: famotidine [From Pepcid] Allergy (Severe, Verified 03/22/18 15:57) Anaphylaxis ketorolac tromethamine [From Toradol] Allergy (Severe, Verified 03/22/18 15:57) levofloxacin [From Levaquin] Allergy (Severe, Verified 03/22/18 15:57) meperidine HCl [From Demerol] Allergy (Severe, Verified 03/22/18 15:57) morphine [Morphine] Allergy (Severe, Verified 03/22/18 15:57) tramadol HCl [From Ultram] Allergy (Severe, Verified 03/22/18 15:57) amoxicillin [Amoxicillin] Allergy (Verified 03/22/18 15:57) fentanyl [Fentanyl] Allergy (Verified 03/22/18 15:57) latex [Latex] Allergy (Verified 03/22/18 15:57) ondansetron HCl [From Zofran] Allergy (Verified 03/22/18 15:57) Past Medical History - General Information source: Patient - Social History Smoking Status: Unknown if Ever Smoked Family History: Reviewed & Not Pertinent, Other - Refused Patient has suicidal ideation: No Patient has homicidal ideation: No - Past Medical History Cardiac Medical History: Denies: Hx Atrial Fibrillation, Hx Congestive Heart Failure, Hx Coronary Artery Disease Pulmonary Medical History: Denies: Hx Bronchitis, Hx Tuberculosis Neurological Medical History: Reports: Hx Seizures Endocrine Medical History: Denies: Hx Diabetes Mellitus Type 1, Hx Diabetes Mellitus Type 2 Renal/ Medical History: Denies: Hx Peritoneal Dialysis Musculoskeletal Medical History: Reports Hx Musculoskeletal Deformity - right hip avascular necrosis Psychiatric Medical History: Denies: Hx Depression Past Surgical History: Reports: Hx Appendectomy, Hx Vascular Surgery - L port placement, Other - Port placement - Immunizations Immunizations up to date: Yes Hx Diphtheria, Pertussis, Tetanus Vaccination: Yes Hx Pneumococcal Vaccination: 02/20/11 Review of Systems - Review of Systems Constitutional: See HPI EENT: See HPI Cardiovascular: See HPI Respiratory: See HPI Gastrointestinal: No symptoms reported Genitourinary: No symptoms reported Male Genitourinary: No symptoms reported Musculoskeletal: See HPI Skin: No symptoms reported Hematologic/Lymphatic: See HPI Neurological/Psychological: No symptoms reported Physical Exam - Vital signs Vitals: Temp Pulse Resp BP Pulse Ox 97.9 F 58 L 18 121/82 94 04/11/18 21:57 04/11/18 21:57 04/11/18 21:57 04/11/18 21:57 04/11/18 21:57 - Notes Notes: GENERAL: Alert, interacts well. Holding arms crossed stating that is helping his elbow pain. HEAD: Normocephalic, atraumatic. EYES: Pupils equal, round, and reactive to light. Extraocular movements intact. ENT: Oral mucosa moist, tongue midline. NECK: Full range of motion. Supple. Trachea midline. LUNGS: Clear to auscultation bilaterally, no wheezes, rales, or rhonchi. No respiratory distress. HEART: Regular rate and rhythm. No murmur CHEST: Patient has a port to the left anterior chest wall. No erythema or ecchymosis noted around port. ABDOMEN: Soft, non-tender. Non-distended. Bowel sounds present in all 4 quadrants. EXTREMITIES: Moves all 4 extremities spontaneously with pain. No edema, normal radial and dorsalis pedis pulses bilaterally. No cyanosis. BACK: no cervical, thoracic, lumbar midline tenderness. No saddle anesthesia, normal distal neurovascular exam. NEUROLOGICAL: Alert and oriented x3. Normal speech. cranial nerves II through XII grossly intact PSYCH: Flat affect, normal mood. SKIN: Warm, dry, normal turgor. No rashes or lesions noted. Course - Re-evaluation Re-evalutation: 04/12/18 03:51 Patient was given a total of 3 rounds of Dilaudid and Benadryl in the emergency room. Patient is requesting discharge home. States he feels a whole lot better. States he will continue his methadone at home and follow-up with his anesthesiology faculty. 04/12/18 03:52 Labs show no signs of leukocytosis. Hemoglobin and hematocrit are 10 and 28.4 respectively. This appears to be patient's baseline and compared to other visits. Patient does have a reticulocyte count of 9.88. Chest x-ray shows no signs of pneumonia, pneumothorax, rib fracture. Patient is afebrile, non-tachycardic, not hypotensive, stable for discharge at this time. - Vital Signs Vital signs: Temp Pulse Resp BP Pulse Ox 97.9 F 58 L 18 121/82 94 04/11/18 21:57 04/11/18 21:57 04/11/18 21:57 04/11/18 21:57 04/11/18 21:57 - Laboratory Result Diagrams: 04/12/18 00:38 04/11/18 23:25 Laboratory results interpreted by me: 04/11/18 04/12/18 23:25 00:38 RBC 2.77 L Hgb 10.0 L Hct 28.4 L MCV 103 H MCH 35.9 H RDW 18.9 H Retic Count (auto) 9.88 H Absolute Retic 0.274 H Total Bilirubin 1.5 H Discharge - Discharge Clinical Impression: Sickle cell pain crisis Condition: Stable Disposition: HOME, SELF-CARE Instructions: Sickle Cell Crisis ([facility]) Additional Instructions: As we discussed you have been seen and treated in the emergency department for your sickle cell pain. Please continue to take prescription medications as prescribed. Please follow-up with your anesthesiology faculty within the next 24-48 hours. Please return to the emergency room for any other concerning symptoms.
== END 2018-04-12 04:37 | disposition home or self-care (01) ==
LOC: ER 21:56
DX: D57.00 Hb-SS disease with crisis, unspecified (principal); M25.521 Pain in right elbow; M25.522 Pain in left elbow; M25.561 Pain in right knee; M25.562 Pain in left knee; M25.571 Pain in right ankle and joints of right foot; M25.572 Pain in left ankle and joints of left foot; R51 Headache; Z79.899 Other long term (current) drug therapy
CPT/HCPCS: 36591; 96376; 99284; 96374; 96375; 36415; 85025; 85045; 80053; 81001; 71046; J1200; J1170

== ENCOUNTER 2018-04-18 04:41 | Emergency (ER) | payer MEDICARE, MEDICAID ==
[2018-04-18] MEDS ORDERED: HYDROMORPHONE HCL INJ/PF 2 MG/ML AMPULE IV ONE (05:12)
--- NOTE | 2018-04-18 05:14 | ER Document Report ---
ED Medical Screen (RME) - General Chief Complaint: Sickle Cell Crisis Stated Complaint: BODY PAIN Time Seen by Provider: 04/18/18 05:07 Notes: 37-year-old male with a past medical history of sickle cell anemia of pain mainly in his joints over the lower extremities worsening over the past day, also reports some shortness of breath. Denies fever, vomiting, headache. On oxycodone and methadone at home, states they were helping yesterday but today the pain is worse. TRAVEL OUTSIDE OF THE [place] IN LAST 30 DAYS: No - Related Data Allergies/Adverse Reactions: famotidine [From Pepcid] Allergy (Severe, Verified 04/18/18 04:48) Anaphylaxis ketorolac tromethamine [From Toradol] Allergy (Severe, Verified 04/18/18 04:48) levofloxacin [From Levaquin] Allergy (Severe, Verified 04/18/18 04:48) meperidine HCl [From Demerol] Allergy (Severe, Verified 04/18/18 04:48) morphine [Morphine] Allergy (Severe, Verified 04/18/18 04:48) tramadol HCl [From Ultram] Allergy (Severe, Verified 04/18/18 04:48) amoxicillin [Amoxicillin] Allergy (Verified 04/18/18 04:48) fentanyl [Fentanyl] Allergy (Verified 04/18/18 04:48) latex [Latex] Allergy (Verified 04/18/18 04:48) ondansetron HCl [From Zofran] Allergy (Verified 04/18/18 04:48) Past Medical History - Past Medical History Cardiac Medical History: Denies: Hx Atrial Fibrillation, Hx Congestive Heart Failure, Hx Coronary Artery Disease Pulmonary Medical History: Denies: Hx Bronchitis, Hx Tuberculosis Neurological Medical History: Reports: Hx Seizures Endocrine Medical History: Denies: Hx Diabetes Mellitus Type 1, Hx Diabetes Mellitus Type 2 Renal/ Medical History: Denies: Hx Peritoneal Dialysis Musculoskeltal Medical History: Reports Hx Musculoskeletal Deformity - right hip avascular necrosis Psychiatric Medical History: Denies: Hx Depression Past Surgical History: Reports: Hx Appendectomy, Hx Vascular Surgery - L port placement, Other - Port placement - Immunizations Immunizations up to date: Yes Hx Diphtheria, Pertussis, Tetanus Vaccination: Yes Physical Exam - Vital signs Vitals: Temp Pulse Resp BP Pulse Ox 98.5 F 51 L 17 122/80 97 04/18/18 04:51 04/18/18 04:51 04/18/18 04:51 04/18/18 04:51 04/18/18 04:51 - General General appearance: Appears well In distress: None - Respiratory Respiratory status: No respiratory distress. No: Labored Chest status: No: Tender Breath sounds: Normal. No: Decreased air movement Course - Vital Signs Vital signs: Temp Pulse Resp BP Pulse Ox 98.5 F 51 L 17 122/80 97 04/18/18 04:51 04/18/18 04:51 04/18/18 04:51 04/18/18 04:51 04/18/18 04:51
[2018-04-18 06:07] LABS: ABSOLUTE RETICS # 0.179 10^6/uL (0.028-0.122); HEMATOCRIT 26.9 % (37.9-51.0); HEMOGLOBIN 9.4 g/dL (13.5-17.0); MEAN CORPUSCULAR HEMOGLOBIN 36.4 pg (27.0-33.4); MEAN CORPUSCULAR VOLUME 104 fl (80-97); PLATELET COUNT 221 10^3/uL (150-450); RED BLOOD COUNT 2.58 10^6/uL (4.35-5.55); RED CELL DISTRIBUTION WIDTH 18.8 % (11.5-14.0); RETICULOCYTE COUNT (AUTO) 6.91 % (0.66-2.85)
--- NOTE | 2018-04-18 06:18 | RADIOLOGY REPORT (SQ) ---
EXAM DESCRIPTION: XR CHEST 2 VIEWS COMPLETED DATE/TME: 04/18/2018 05:11 CLINICAL HISTORY: 37 years, Male, shortness of breath, sickle cell COMPARISON: 04/12/2018 chest NUMBER OF VIEWS: 2 TECHNIQUE: Frontal and lateral views of the chest LIMITATIONS: None. FINDINGS: Cardiomegaly. [id number] catheter in place. Chronic appearing interstitial changes bilaterally. No pneumothorax. IMPRESSION: Stable cardiomegaly with chronic interstitial change copyright 2010 [employer]- All Rights Reserved
[2018-04-18] MEDS ORDERED: DIPHENHYDRAMINE HCL 50 MG/ML VIAL IV ONE (06:46)
[2018-04-18] MEDS ORDERED: METHADONE HCL 10 MG TABLET PO ONE (06:46)
[2018-04-18 06:47] LABS: ABSOLUTE LYMPHOCYTES# (MANUAL) 2.1 10^3/uL (0.5-4.7); ABSOLUTE MONOCYTES # (MANUAL) 0.4 10^3/uL (0.1-1.4); ABSOLUTE NEUTROPHILS# (MANUAL) 2.5 10^3/uL (1.7-8.2); BASOPHILS % (MANUAL) 0 % (0-2); EOSINOPHILS % (MANUAL) 0 % (0-6); LYMPHOCYTES % (MANUAL) 42 % (13-45); MONOCYTES % (MANUAL) 8 % (3-13); NUCLEATED RED BLOOD CELLS 3 /100 WBC (0); SEGMENTED NEUTROPHILS % (MAN) 50 % (42-78); TOTAL CELLS COUNTED 100
[2018-04-18] MEDS ORDERED: NORMAL SALINE 1000 ML 1,000 ML IV ONE (06:47)
[2018-04-18 06:49] LABS: ANISOCYTOSIS 2+; HOWELL-JOLLY BODIES PRESENT; PLATELET COMMENT ADEQUATE; POIKILOCYTOSIS 2+; POLYCHROMASIA 1+; SICKLE RED CELLS 2+; TARGET CELLS SLIGHT
[2018-04-18 07:19] LABS: ALANINE AMINOTRANSFERASE 26 U/L (21-72); ALBUMIN 3.9 g/dL (3.5-5.0); ALKALINE PHOSPHATASE 61 U/L (38-126); ANION GAP 6 (5-19); ASPARTATE AMINO TRANSFERASE 42 U/L (17-59); BILIRUBIN,DIRECT 0.4 mg/dL (0.0-0.4); BILIRUBIN,TOTAL 2.1 mg/dL (0.2-1.3); BLOOD UREA NITROGEN 10 mg/dL (7-20); CALCIUM 8.8 mg/dL (8.4-10.2); CARBON DIOXIDE 28 mmol/L (22-30); CHLORIDE 108 mmol/L (98-107); GLUCOSE 85 mg/dL (75-110); POTASSIUM 3.6 mmol/L (3.6-5.0); SODIUM 142.1 mmol/L (137-145); TOTAL PROTEIN 7.6 g/dL (6.3-8.2)
--- NOTE | 2018-04-18 07:27 | ER Document Report ---
ED General - General Chief Complaint: Sickle Cell Crisis Stated Complaint: BODY PAIN Time Seen by Provider: 04/18/18 05:07 TRAVEL OUTSIDE OF THE [place] IN LAST 30 DAYS: No - HPI Patient complains to provider of: Sickle cell pain Notes: Patient coming in for evaluation of sickle cell pain. Patient states having elbow pain muscle aches is on methadone and oxycodone for his pain control patient was seen by the [facility] provider note is provided below 37-year-old male with a past medical history of sickle cell anemia of pain mainly in his joints over the lower extremities worsening over the past day, also reports some shortness of breath. Denies fever, vomiting, headache. On oxycodone and methadone at home, states they were helping yesterday but today the pain is worse. Patient states that he went to work last night and was unable to take his morning dose of methadone and oxycodone patient upon my evaluation has already been prescribed Dilaudid states he cannot take this without having Benadryl first. Patient otherwise resting comfortably upon my evaluation. A brief review of the patient's medical records available in [facility] was performed - Related Data Allergies/Adverse Reactions: famotidine [From Pepcid] Allergy (Severe, Verified 04/18/18 04:48) Anaphylaxis ketorolac tromethamine [From Toradol] Allergy (Severe, Verified 04/18/18 04:48) levofloxacin [From Levaquin] Allergy (Severe, Verified 04/18/18 04:48) meperidine HCl [From Demerol] Allergy (Severe, Verified 04/18/18 04:48) morphine [Morphine] Allergy (Severe, Verified 04/18/18 04:48) tramadol HCl [From Ultram] Allergy (Severe, Verified 04/18/18 04:48) amoxicillin [Amoxicillin] Allergy (Verified 04/18/18 04:48) fentanyl [Fentanyl] Allergy (Verified 04/18/18 04:48) latex [Latex] Allergy (Verified 04/18/18 04:48) ondansetron HCl [From Zofran] Allergy (Verified 04/18/18 04:48) Past Medical History - Social History Smoking Status: Never Smoker Family History: Reviewed & Not Pertinent, Other - Refused Patient has suicidal ideation: No Patient has homicidal ideation: No - Past Medical History Cardiac Medical History: Denies: Hx Atrial Fibrillation, Hx Congestive Heart Failure, Hx Coronary Artery Disease Pulmonary Medical History: Denies: Hx Bronchitis, Hx Tuberculosis Neurological Medical History: Reports: Hx Seizures Endocrine Medical History: Denies: Hx Diabetes Mellitus Type 1, Hx Diabetes Mellitus Type 2 Renal/ Medical History: Denies: Hx Peritoneal Dialysis Musculoskeletal Medical History: Reports Hx Musculoskeletal Deformity - right hip avascular necrosis Psychiatric Medical History: Denies: Hx Depression Past Surgical History: Reports: Hx Appendectomy, Hx Vascular Surgery - L port placement, Other - Port placement - Immunizations Immunizations up to date: Yes Hx Diphtheria, Pertussis, Tetanus Vaccination: Yes Hx Pneumococcal Vaccination: 02/20/11 Review of Systems - Review of Systems Constitutional: Other - Joint pain EENT: No symptoms reported Cardiovascular: No symptoms reported Respiratory: No symptoms reported Gastrointestinal: No symptoms reported Genitourinary: No symptoms reported Male Genitourinary: No symptoms reported Musculoskeletal: No symptoms reported Skin: No symptoms reported Hematologic/Lymphatic: No symptoms reported Neurological/Psychological: No symptoms reported -: Yes All other systems reviewed and negative Physical Exam - Vital signs Vitals: Temp Pulse Resp BP Pulse Ox 98.5 F 51 L 17 122/80 97 04/18/18 04:51 04/18/18 04:51 04/18/18 04:51 04/18/18 04:51 04/18/18 04:51 Interpretation: Normal - General General appearance: Appears well, Alert - HEENT Head: Normocephalic, Atraumatic Eyes: Normal Pupils: PERRL - Respiratory Respiratory status: No respiratory distress Chest status: Nontender Breath sounds: Normal Chest palpation: Normal - Cardiovascular Rhythm: Regular Heart sounds: Normal auscultation Murmur: No - Abdominal Inspection: Normal Distension: No distension Bowel sounds: Normal Tenderness: Nontender Organomegaly: No organomegaly - Back Back: Normal, Nontender - Extremities General upper extremity: Normal inspection, Nontender, Normal color, Normal ROM, Normal temperature General lower extremity: Normal inspection, Nontender, Normal color, Normal ROM, Normal temperature, Normal weight bearing. No: Herber's sign - Neurological Neuro grossly intact: Yes Cognition: Normal Orientation: AAOx4 [place]anni Coma Scale Eye Opening: Spontaneous [place] Coma Scale Verbal: Oriented [place] Coma Scale Motor: Obeys Commands Yanni Coma Scale Total: 15 Speech: Normal Motor strength normal: LUE, RUE, LLE, RLE Sensory: Normal - Psychological Associated symptoms: Normal affect, Normal mood - Skin Skin Temperature: Warm Skin Moisture: Dry Skin Color: Normal Course - Re-evaluation Re-evalutation: 04/18/18 14:12 Laboratory studies not showing any signs of significant pathology in the past crisis slightly elevation in the thecal sac, along with slight elevation in the LDH however upon trending improvement are baseline for the patient. Patient was seen by triage provider and Dilaudid was ordered for the patient however patient refused to receive Dilaudid for his pain control until he was given Benadryl. Unfortunately was some time until I can see the patient to order his Benadryl 25 mg IV push. After reviewing the laboratory studies patient was reevaluated stating that he still had pain in his left arm left shoulder as he was laying in the left lateral recumbent position on his left arm. Patient otherwise looks to be stable he did receive a dose of methadone I did inquire about the patient's home medication states he normally takes methadone and Percocet together I did administer the patient his Percocet ex plained to the patient at this time laboratory studies vital signs otherwise look stable chest x-ray is clear no signs of acute cysts syndrome patient will be discharged home patient still complaining of itching he was offered p.o. Atarax however states that he thought that he was allergic to the medication he later explained and refused the medication to the nurse. 04/18/18 14:12 - Vital Signs Vital signs: Temp Pulse Resp BP Pulse Ox 98.6 F 58 L 15 126/86 H 100 04/18/18 09:05 04/18/18 09:05 04/18/18 09:05 04/18/18 09:05 04/18/18 09:05 - Laboratory Result Diagrams: 04/18/18 05:44 04/18/18 05:44 Laboratory results interpreted by me: 04/18/18 04/18/18 04/18/18 05:44 05:44 05:44 RBC 2.58 L Hgb 9.4 L Hct 26.9 L MCV 104 H MCH 36.4 H RDW 18.8 H Retic Count (auto) 6.91 H Absolute Retic 0.179 H Chloride 108 H Total Bilirubin 2.1 H Lactate Dehydrogenase 360 H Discharge - Discharge Clinical Impression: Opiate dependence, continuous Joint pain Qualifiers: Joint pain location: unspecified Qualified Code(s): M25.50 - Pain in unspecified joint Sickle cell disease Qualifiers: Sickle-cell associated disorders: without crisis Qualified Code(s): D57.1 - Sickle-cell disease without crisis Condition: Good Disposition: HOME, SELF-CARE Instructions: Sickle Cell Crisis ([facility]) Additional Instructions: Laboratory studies today do not show any critical findings. Chest x-ray is also negative for any signs of acute chest or any infectious etiology. Please continue to take your home pain medication as prescribed by your crematory operator. Also recommend ice packs warm packs to the areas that are aching take Tylenol as well for pain control. Follow-up with your primary care physician return to ER for any concerning issues.
[2018-04-18] MEDS ORDERED: OXYCODONE-ACETAMINOPHEN 5-325 MG TABLET PO ONE (07:44)
[2018-04-18] MEDS ORDERED: HYDROXYZINE PAMOATE 25 MG CAPSULE PO ONE (08:28)
[2018-04-18 09:08] VITALS: BP 126/86
== END 2018-04-18 09:07 | disposition home or self-care (01) ==
LOC: ER 04:41
DX: F11.20 Opioid dependence, uncomplicated (principal); M25.50 Pain in unspecified joint; D57.1 Sickle-cell disease without crisis; M79.10 Myalgia, unspecified site; Z88.0 Allergy status to penicillin; Z88.6 Allergy status to analgesic agent; Z91.040 Latex allergy status
CPT/HCPCS: 36591; 99284; 96361; 96374; 96375; 36415; 83615; 85025; 85045; 80053; 71046; J1200; A9270 ×2; J1170; J7030

== ENCOUNTER 2018-04-19 01:39 | Emergency (ER) | payer MEDICARE, MEDICAID ==
[2018-04-19] MEDS ORDERED: DIPHENHYDRAMINE HCL 50 MG/ML VIAL IV ONE ×2 (02:48→05:50)
[2018-04-19] MEDS: HYDROMORPHONE HCL INJ/PF 2 MG/ML AMPULE IV PRN ×3 (03:21→06:00)
--- NOTE | 2018-04-19 04:16 | ER Document Report ---
ED General - General Chief Complaint: Pain All Over Stated Complaint: PAIN Time Seen by Provider: 04/19/18 02:45 Notes: Patient is a 37-year-old male well-known to me with a history of sickle cell disease who presents with diffuse joint pain. Patient states that his pain was relatively well controlled of her visits the emergency department yesterday but has recurred due to the weather change. Does describe it as a throbbing, aching, constant pain to his left knee, low back, bilateral hips and left elbow. States this feels identical to prior sickle cell flares. Denies any shortness of breath, cough or symptoms similar to when he has had acute chest syndrome in the past. He has not seen his sparmaker her primary care doctor regarding today's concerns. No fever or constitutional symptoms. He has tried his home pain medication without relief. TRAVEL OUTSIDE OF THE [place] IN LAST 30 DAYS: No - Related Data Allergies/Adverse Reactions: famotidine [From Pepcid] Allergy (Severe, Verified 04/18/18 04:48) Anaphylaxis ketorolac tromethamine [From Toradol] Allergy (Severe, Verified 04/18/18 04:48) levofloxacin [From Levaquin] Allergy (Severe, Verified 04/18/18 04:48) meperidine HCl [From Demerol] Allergy (Severe, Verified 04/18/18 04:48) morphine [Morphine] Allergy (Severe, Verified 04/18/18 04:48) tramadol HCl [From Ultram] Allergy (Severe, Verified 04/18/18 04:48) amoxicillin [Amoxicillin] Allergy (Verified 04/18/18 04:48) fentanyl [Fentanyl] Allergy (Verified 04/18/18 04:48) latex [Latex] Allergy (Verified 04/18/18 04:48) ondansetron HCl [From Zofran] Allergy (Verified 04/18/18 04:48) Past Medical History - General Information source: Patient - Social History Smoking Status: Never Smoker Frequency of alcohol use: None Drug Abuse: None Lives with: Family Family History: Reviewed & Not Pertinent, Other - Refused - Past Medical History Cardiac Medical History: Denies: Hx Atrial Fibrillation, Hx Congestive Heart Failure, Hx Coronary Artery Disease Pulmonary Medical History: Denies: Hx Bronchitis, Hx Tuberculosis Neurological Medical History: Reports: Hx Seizures Endocrine Medical History: Denies: Hx Diabetes Mellitus Type 1, Hx Diabetes Mellitus Type 2 Renal/ Medical History: Denies: Hx Peritoneal Dialysis Musculoskeletal Medical History: Reports Hx Musculoskeletal Deformity - right hip avascular necrosis Psychiatric Medical History: Denies: Hx Depression Past Surgical History: Reports: Hx Appendectomy, Hx Vascular Surgery - L port placement, Other - Port placement - Immunizations Immunizations up to date: Yes Hx Diphtheria, Pertussis, Tetanus Vaccination: Yes Hx Pneumococcal Vaccination: 02/20/11 Review of Systems - Review of Systems Notes: Constitutional: Negative for fever. HENT: Negative for sore throat. Eyes: Negative for visual changes. Cardiovascular: Negative for chest pain. Respiratory: Negative for shortness of breath. Gastrointestinal: Negative for abdominal pain, vomiting or diarrhea. Genitourinary: Negative for dysuria. Musculoskeletal: Positive polyarthropathy Skin: Negative for rash. Neurological: Negative for headaches, weakness or numbness. 10 point ROS negative except as marked above and in HPI. Physical Exam - Vital signs Vitals: Temp Pulse Resp BP Pulse Ox 98.4 F 60 16 128/80 H 99 04/19/18 01:45 04/19/18 01:45 04/19/18 01:45 04/19/18 01:45 04/19/18 01:45 Interpretation: Normal Notes: PHYSICAL EXAMINATION: GENERAL: Well-appearing, well-nourished and in no acute distress. HEAD: Atraumatic, normocephalic. EYES: Pupils equal round and reactive to light, extraocular movements intact, sclera anicteric, conjunctiva are normal. ENT: nares patent, oropharynx clear without exudates. Moist mucous membranes. NECK: Normal range of motion, supple without lymphadenopathy LUNGS: Breath sounds clear to auscultation bilaterally and equal. No wheezes rales or rhonchi. HEART: Regular rate and rhythm without murmurs ABDOMEN: Soft, nontender, normoactive bowel sounds. No guarding, no rebound. No masses appreciated. EXTREMITIES: Normal range of motion, no pitting or edema. No cyanosis. NEUROLOGICAL: No focal neurological deficits. Moves all extremities spontaneously and on command. PSYCH: Normal mood, normal affect. SKIN: Warm, Dry, normal turgor, no rashes or lesions noted. Course - Re-evaluation Re-evalutation: 04/19/18 04:15 Presentation is most consistent with an uncomplicated sickle cell pain crisis. I have not repeated labs today as the patient had these done within the last 24 hours as well as a chest x-ray. No clinical history, vitals or any additional concerns to suggest an acute chest syndrome or aplastic crisis. Patient is in agreement with avoidance of labs today. Vitals have remained within normal limits here in the emergency department. Patient's pain has been able to be controlled using IV analgesia. The patient is agreeable to discharge home at this time. I recommended that they follow closely with their primary sparmaker. Return precautions have been reviewed and discussed and patient has verbalized indications to return to the emergency department. - Vital Signs Vital signs: Temp Pulse Resp BP Pulse Ox 98.4 F 60 16 128/80 H 99 04/19/18 01:45 04/19/18 01:45 04/19/18 01:45 04/19/18 01:45 04/19/18 01:45 Discharge - Discharge Clinical Impression: Sickle cell pain crisis Joint pain Qualifiers: Joint pain location: unspecified Qualified Code(s): M25.50 - Pain in unspecified joint Condition: Good Disposition: HOME, SELF-CARE Additional Instructions: You were seen today for sickle cell pain crisis. Please follow-up with your sparmaker. Returning to the ED if you have worsening pain, fever greater than 100.4, shortness of breath, persistent vomiting, or any other symptoms that are concerning to you.
[2018-04-19 07:02] VITALS: BP 127/80
== END 2018-04-19 06:38 | disposition home or self-care (01) ==
LOC: ER 01:39
DX: D57.00 Hb-SS disease with crisis, unspecified (principal); M25.50 Pain in unspecified joint; Z79.899 Other long term (current) drug therapy
CPT/HCPCS: 36591; 96376; 99283; 96374; 96375; J1200; J1170

== ENCOUNTER 2018-04-20 21:55 | Emergency (ER) | payer MEDICARE, MEDICAID ==
[2018-04-20 22:51] LABS: HEMATOCRIT 27.3 % (37.9-51.0); HEMOGLOBIN 9.5 g/dL (13.5-17.0); MEAN CORPUSCULAR HEMOGLOBIN 36.4 pg (27.0-33.4); MEAN CORPUSCULAR HGB CONC 34.9 g/dL (32.0-36.0); MEAN CORPUSCULAR VOLUME 104 fl (80-97); PLATELET COUNT 190 10^3/uL (150-450); RED BLOOD COUNT 2.62 10^6/uL (4.35-5.55); RED CELL DISTRIBUTION WIDTH 19.3 % (11.5-14.0); WHITE BLOOD COUNT 4.9 10^3/uL (4.0-10.5)
[2018-04-20] MEDS ORDERED: DIPHENHYDRAMINE HCL 50 MG/ML VIAL IV ONE (22:55)
[2018-04-20 23:03] LABS: ANION GAP 10 (5-19); BLOOD UREA NITROGEN 8 mg/dL (7-20); CALCIUM 8.8 mg/dL (8.4-10.2); CARBON DIOXIDE 26 mmol/L (22-30); CHLORIDE 104 mmol/L (98-107); GLUCOSE 107 mg/dL (75-110); POTASSIUM 3.4 mmol/L (3.6-5.0); SODIUM 140.1 mmol/L (137-145)
--- NOTE | 2018-04-20 23:03 | RADIOLOGY REPORT (SQ) ---
EXAM DESCRIPTION: XR CHEST 1 VIEW COMPLETED DATE/TME: 04/20/2018 22:09 CLINICAL HISTORY: 37 years, Male, cp COMPARISON: 03/20/2018 chest NUMBER OF VIEWS: 1 TECHNIQUE: Portable chest LIMITATIONS: None. FINDINGS: Cardiomegaly. [id number] catheter in place. Streaky opacities over the lung bases, unchanged. No pneumothorax. IMPRESSION: Stable cardiomegaly. Chronic changes in the lung bases bilaterally copyright 2010 [employer]- All Rights Reserved
[2018-04-20] MEDS: HYDROMORPHONE HCL INJ/PF 2 MG/ML AMPULE IV PRN (23:12)
[2018-04-20 23:13] LABS: ABSOLUTE LYMPHOCYTES# (MANUAL) 1.7 10^3/uL (0.5-4.7); ABSOLUTE MONOCYTES # (MANUAL) 0.5 10^3/uL (0.1-1.4); ABSOLUTE NEUTROPHILS# (MANUAL) 2.6 10^3/uL (1.7-8.2); BASOPHILS % (MANUAL) 0 % (0-2); EOSINOPHILS % (MANUAL) 1 % (0-6); LYMPHOCYTES % (MANUAL) 35 % (13-45); MONOCYTES % (MANUAL) 10 % (3-13); NUCLEATED RED BLOOD CELLS 3 /100 WBC (0); SEGMENTED NEUTROPHILS % (MAN) 54 % (42-78); TOTAL CELLS COUNTED 100
[2018-04-20 23:14] LABS: ANISOCYTOSIS 2+; PLATELET COMMENT ADEQUATE; POLYCHROMASIA 2+; SICKLE RED CELLS 1+; TARGET CELLS 1+
--- NOTE | 2018-04-20 23:44 | EKG REPORT ---
SEVERITY:- ABNORMAL ECG - SINUS RHYTHM PROBABLE LEFT ATRIAL ABNORMALITY LVH WITH SECONDARY REPOLARIZATION ABNORMALITY ANTERIOR Q WAVES, POSSIBLY DUE TO LVH : Confirmed by: Enedina Traylor 20-Apr-2018 23:43:32
[2018-04-21] MEDS: HYDROMORPHONE HCL INJ/PF 2 MG/ML AMPULE IV PRN ×2 (00:25→01:33)
--- NOTE | 2018-04-21 00:28 | ER Document Report ---
ED General - General Chief Complaint: Sickle Cell Crisis Stated Complaint: BODY ACHES Time Seen by Provider: 04/20/18 22:08 Notes: Patient is a 37-year-old male with a past medical history of sickle cell anemia who presents with complaints of left-sided chest discomfort, left knee pain, and diffuse body aches. Patient states that this is an ongoing intermittent sickle cell crisis that he has been having over the past several weeks due to weather changes. Describes the pain to the affected areas as being a moderate to severe throbbing, aching he has been trying his home methadone and oxycodone without any substantial relief denies shortness of breath, fever or constitutional symptoms. He has not seen his manager telemetry regarding today's concerns. He was seen by me in the emergency department yesterday. States that he believes his symptoms have been worsened due to weather. TRAVEL OUTSIDE OF THE [place] IN LAST 30 DAYS: No - Related Data Allergies/Adverse Reactions: famotidine [From Pepcid] Allergy (Severe, Verified 04/18/18 04:48) Anaphylaxis ketorolac tromethamine [From Toradol] Allergy (Severe, Verified 04/18/18 04:48) levofloxacin [From Levaquin] Allergy (Severe, Verified 04/18/18 04:48) meperidine HCl [From Demerol] Allergy (Severe, Verified 04/18/18 04:48) morphine [Morphine] Allergy (Severe, Verified 04/18/18 04:48) tramadol HCl [From Ultram] Allergy (Severe, Verified 04/18/18 04:48) amoxicillin [Amoxicillin] Allergy (Verified 04/18/18 04:48) fentanyl [Fentanyl] Allergy (Verified 04/18/18 04:48) latex [Latex] Allergy (Verified 04/18/18 04:48) ondansetron HCl [From Zofran] Allergy (Verified 04/18/18 04:48) Past Medical History - General Information source: Patient - Social History Smoking Status: Never Smoker Frequency of alcohol use: None Drug Abuse: None Lives with: Family Family History: Reviewed & Not Pertinent, Other - Refused Patient has suicidal ideation: No Patient has homicidal ideation: No - Past Medical History Cardiac Medical History: Denies: Hx Atrial Fibrillation, Hx Congestive Heart Failure, Hx Coronary A rtery Disease Pulmonary Medical History: Denies: Hx Bronchitis, Hx Tuberculosis Neurological Medical History: Reports: Hx Seizures Endocrine Medical History: Denies: Hx Diabetes Mellitus Type 1, Hx Diabetes Mellitus Type 2 Renal/ Medical History: Denies: Hx Peritoneal Dialysis Musculoskeletal Medical History: Reports Hx Musculoskeletal Deformity - right hip avascular necrosis Psychiatric Medical History: Denies: Hx Depression Past Surgical History: Reports: Hx Appendectomy, Hx Vascular Surgery - L port placement, Other - Port placement - Immunizations Immunizations up to date: Yes Hx Diphtheria, Pertussis, Tetanus Vaccination: Yes Hx Pneumococcal Vaccination: 02/20/11 Review of Systems - Review of Systems Notes: Constitutional: Negative for fever. HENT: Negative for sore throat. Eyes: Negative for visual changes. Cardiovascular: Positive for chest pain. Respiratory: Negative for shortness of breath. Gastrointestinal: Negative for abdominal pain, vomiting or diarrhea. Genitourinary: Negative for dysuria. Musculoskeletal: Positive for left knee pain, bilateral shoulder pain Skin: Negative for rash. Neurological: Negative for headaches, weakness or numbness. 10 point ROS negative except as marked above and in HPI. Physical Exam - Vital signs Vitals: Temp Pulse Resp BP Pulse Ox 98.7 F 71 16 128/87 H 97 04/20/18 22:03 04/20/18 22:03 04/20/18 22:03 04/20/18 22:03 04/20/18 22:03 Interpretation: Normal Notes: PHYSICAL EXAMINATION: GENERAL: Well-appearing, well-nourished and in no acute distress. HEAD: Atraumatic, normocephalic. EYES: Pupils equal round and reactive to light, extraocular movements intact, sclera anicteric, conjunctiva are normal. ENT: nares patent, oropharynx clear without exudates. Moist mucous membranes. NECK: Normal range of motion, supple without lymphadenopathy LUNGS: Breath sounds clear to auscultation bilaterally and equal. No wheezes rales or rhonchi. HEART: Regular rate and rhythm without murmurs ABDOMEN: Soft, nontender, normoactive bowel sounds. No guarding, no rebound. No masses appreciated. EXTREMITIES: Normal range of motion, no pitting or edema. No cyanosis. NEUROLOGICAL: No focal neurological deficits. Moves all extremities spontaneously and on command. PSYCH: Normal mood, normal affect. SKIN: Warm, Dry, normal turgor, no rashes or lesions noted. Course - Re-evaluation Re-evalutation: 12/31/18 00:25 Presentation is most consistent with an uncomplicated sickle cell pain crisis. Patient has no evidence of an aplastic crisis on labs. Chest x-ray and vitals are not consistent with acute chest syndrome. Vitals have remained within normal limits here in the emergency department. Patient's pain has been able to be controlled using IV analgesia. The patient is agreeable to discharge home at this time. I recommended that they follow closely with their primary manager telemetry. At this time will discharge with return precautions and follow-up recommendations. Verbal discharge instructions given a the bedside and opportunity for questions given. Medication warnings reviewed. Patient is in agreement with this plan and has verbalized understanding of return precautions and the need for primary care follow-up in the next 24-72 hours. - Vital Signs Vital signs: Temp Pulse Resp BP Pulse Ox 98.5 F 61 15 135/83 H 96 04/21/18 02:05 04/21/18 02:05 04/21/18 02:05 04/21/18 02:05 04/21/18 02:05 - Laboratory Result Diagrams: 04/20/18 22:32 04/20/18 22:32 Laboratory results interpreted by me: 04/20/18 04/20/18 22:32 22:32 RBC 2.62 L Hgb 9.5 L Hct 27.3 L MCV 104 H MCH 36.4 H RDW 19.3 H Potassium 3.4 L - Diagnostic Test Radiology reviewed: Image reviewed, Reports reviewed Radiology results interpreted by me: 04/21/18 00:25 Chest x-ray: No change from previous, no acute infiltrate - EKG Interpretation by Me Additional EKG results interpreted by me: 04/21/18 00:25 Sinus rhythm, rate 71, LVH, No ST elevations, T wave inversions in lateral leads. Discharge - Discharge Clinical Impression: Opiate dependence, continuous Joint pain Qualifiers: Joint pain location: unspecified Qualified Code(s): M25.50 - Pain in unspecified joint Sickle cell disease Qualifiers: Sickle-cell associated disorders: with unspecified crisis Qualified Code(s): D57.00 - Hb-SS disease with crisis, unspecified Condition: Good Disposition: HOME, SELF-CARE Additional Instructions: You were seen today for sickle cell pain crisis. Please follow-up with your manager telemetry. Returning to the ED if you have worsening pain, fever greater than 100.4, shortness of breath, persistent vomiting, or any other symptoms that are concerning to you.
[2018-04-21] MEDS ORDERED: DIPHENHYDRAMINE HCL 50 MG/ML VIAL ONE (01:29)
[2018-04-21] MEDS ORDERED: DIPHENHYDRAMINE HCL 50 MG/ML VIAL IV ONE (01:31)
[2018-04-21 02:10] VITALS: BP 135/83
== END 2018-04-21 02:10 | disposition home or self-care (01) ==
LOC: ER 21:55
DX: F11.20 Opioid dependence, uncomplicated (principal); M25.50 Pain in unspecified joint; D57.00 Hb-SS disease with crisis, unspecified; R07.9 Chest pain, unspecified; M25.562 Pain in left knee; M79.10 Myalgia, unspecified site; Z88.6 Allergy status to analgesic agent; Z88.0 Allergy status to penicillin; Z91.040 Latex allergy status
CPT/HCPCS: 93005; 36591; 96376; 99284; 96374; 96375; 36415; 85025; 80048; 84484; 71045; 93010; J1200 ×2; J1170 ×2

== ENCOUNTER 2018-04-22 18:06 | Emergency (ER) | payer MEDICARE, MEDICAID ==
--- NOTE | 2018-04-22 20:36 | ER Document Report ---
ED Medical Screen (RME) - General Chief Complaint: Sickle Cell Crisis Stated Complaint: MUSCLE/JOINT PAIN Time Seen by Provider: 04/22/18 20:28 Notes: Patient is a 37-year-old male who presents emergency department with a sickle cell crisis. He complains of mainly joint and muscle pain in his legs. His pain started about a week ago. He has been taking his hydrocodone every 4 hours and his last dose was at 4 PM. He is also complaining of lower chest pain. He states that his symptoms are his normal. He also has complaints of a runny nose and has been taking Sudafed for his symptoms. He also complains of on and off fevers, but does not know what his temperature has been. TRAVEL OUTSIDE OF THE [place] IN LAST 30 DAYS: No - Related Data Allergies/Adverse Reactions: famotidine [From Pepcid] Allergy (Severe, Verified 04/18/18 04:48) Anaphylaxis ketorolac tromethamine [From Toradol] Allergy (Severe, Verified 04/18/18 04:48) levofloxacin [From Levaquin] Allergy (Severe, Verified 04/18/18 04:48) meperidine HCl [From Demerol] Allergy (Severe, Verified 04/18/18 04:48) morphine [Morphine] Allergy (Severe, Verified 04/18/18 04:48) tramadol HCl [From Ultram] Allergy (Severe, Verified 04/18/18 04:48) amoxicillin [Amoxicillin] Allergy (Verified 04/18/18 04:48) fentanyl [Fentanyl] Allergy (Verified 04/18/18 04:48) latex [Latex] Allergy (Verified 04/18/18 04:48) ondansetron HCl [From Zofran] Allergy (Verified 04/18/18 04:48) Past Medical History - Social History Chew tobacco use (# tins/day): No Frequency of alcohol use: None Drug Abuse: None - Past Medical History Cardiac Medical History: Denies: Hx Atrial Fibrillation, Hx Congestive Heart Failure, Hx Coronary Artery Disease Pulmonary Medical History: Denies: Hx Bronchitis, Hx Tuberculosis Neurological Medical History: Reports: Hx Seizures Endocrine Medical History: Denies: Hx Diabetes Mellitus Type 1, Hx Diabetes Mellitus Type 2 Renal/ Medical History: Denies: Hx Peritoneal Dialysis Musculoskeltal Medical History: Reports Hx Musculoskeletal Deformity - right hip avascular necrosis Psychiatric Medical History: Denies: Hx Depression Past Surgical History: Reports: Hx Appendectomy, Hx Vascular Surgery - L port placement, Other - Port placement - Immunizations Immunizations up to date: Yes Hx Diphtheria, Pertussis, Tetanus Vaccination: Yes Physical Exam - Vital signs Vitals: Temp Pulse Resp BP Pulse Ox 99.1 F 60 16 129/81 H 97 04/22/18 18:33 04/22/18 18:33 04/22/18 18:33 04/22/18 18:33 04/22/18 18:33 - Respiratory Respiratory status: No respiratory distress Chest status: Nontender Breath sounds: Normal - Cardiovascular Rhythm: Regular Course - Vital Signs Vital signs: Temp Pulse Resp BP Pulse Ox 99.1 F 60 16 129/81 H 97 04/22/18 18:33 04/22/18 18:33 04/22/18 18:33 04/22/18 18:33 04/22/18 18:33
[2018-04-22] MEDS ORDERED: ACETAMINOPHEN 325 MG TABLET PO ONE (20:37)
--- NOTE | 2018-04-22 21:24 | RADIOLOGY REPORT (SQ) ---
EXAM DESCRIPTION: XR CHEST 1 VIEW COMPLETED DATE/TME: 04/22/2018 20:33 CLINICAL HISTORY: 37 years, Male, sickle cell chest pain COMPARISON: EXAM DESCRIPTION: CLINICAL HISTORY: sickle cell chest pain COMPARISON: 04/20/2018 . FINDINGS: Single view of the chest is submitted. Subcutaneous Central catheter tip is at the mid SVC. Nonspecific cylindrical density projects over the interspace between the left second and third ribs laterally. This could be sequela of outside the patient but clinical correlation is advised. The heart is mildly enlarged but decreased in size since the prior exam. There is decreased mild pulmonary edema with no focal consolidation or pneumothorax on either side. No significant pleural effusion. IMPRESSION: Mild cardiomegaly has improved as has mild pulmonary edema. Possible foreign body is again seen projecting between the left second and third lateral ribs as described.
[2018-04-23] MEDS ORDERED: HYDROMORPHONE HCL INJ/PF 2 MG/ML AMPULE IV ONE ×4 (01:00→03:59)
[2018-04-23] MEDS ORDERED: NORMAL SALINE 1000 ML 1,000 ML IV ONE (01:01)
[2018-04-23] MEDS ORDERED: DIPHENHYDRAMINE HCL 50 MG/ML VIAL IV ONE ×2 (01:01→02:45)
[2018-04-23 01:06] LABS: ABSOLUTE RETICS # 0.192 10^6/uL (0.028-0.122); HEMATOCRIT 27.7 % (37.9-51.0); HEMOGLOBIN 9.6 g/dL (13.5-17.0); MEAN CORPUSCULAR HEMOGLOBIN 35.9 pg (27.0-33.4); MEAN CORPUSCULAR HGB CONC 34.8 g/dL (32.0-36.0); MEAN CORPUSCULAR VOLUME 103 fl (80-97); PLATELET COUNT 185 10^3/uL (150-450); RED BLOOD COUNT 2.68 10^6/uL (4.35-5.55); RED CELL DISTRIBUTION WIDTH 18.5 % (11.5-14.0); RETICULOCYTE COUNT (AUTO) 7.15 % (0.66-2.85); WHITE BLOOD COUNT 4.5 10^3/uL (4.0-10.5)
[2018-04-23 01:13] LABS: GLUCOSE 140 mg/dL (75-110); TOTAL PROTEIN 7.7 g/dL (6.3-8.2)
[2018-04-23 01:14] LABS: ALANINE AMINOTRANSFERASE 21 U/L (21-72); ALBUMIN 4.2 g/dL (3.5-5.0); ALKALINE PHOSPHATASE 62 U/L (38-126); ANION GAP 9 (5-19); ASPARTATE AMINO TRANSFERASE 32 U/L (17-59); BILIRUBIN,DIRECT 0.2 mg/dL (0.0-0.4); BILIRUBIN,TOTAL 1.8 mg/dL (0.2-1.3); BLOOD UREA NITROGEN 7 mg/dL (7-20); CALCIUM 8.5 mg/dL (8.4-10.2); CARBON DIOXIDE 26 mmol/L (22-30); CHLORIDE 105 mmol/L (98-107); POTASSIUM 3.5 mmol/L (3.6-5.0); SODIUM 139.5 mmol/L (137-145)
[2018-04-23 01:23] LABS: ABSOLUTE LYMPHOCYTES# (MANUAL) 1.7 10^3/uL (0.5-4.7); ABSOLUTE MONOCYTES # (MANUAL) 0.8 10^3/uL (0.1-1.4); BAND NEUTROPHILS % (MANUAL) 1 % (3-5); BASOPHILS % (MANUAL) 0 % (0-2); EOSINOPHILS % (MANUAL) 0 % (0-6); LYMPHOCYTES % (MANUAL) 37 % (13-45); MONOCYTES % (MANUAL) 18 % (3-13); NUCLEATED RED BLOOD CELLS 1 /100 WBC (0); SEGMENTED NEUTROPHILS % (MAN) 44 % (42-78); TOTAL CELLS COUNTED 100
[2018-04-23 01:25] LABS: ANISOCYTOSIS 2+; HOWELL-JOLLY BODIES PRESENT; OVALOCYTES SLIGHT; PLATELET COMMENT ADEQUATE; POIKILOCYTOSIS 1+; SICKLE RED CELLS 1+; TARGET CELLS 1+; TEAR DROP CELLS SLIGHT
[2018-04-23 01:26] LABS: POLYCHROMASIA SLIGHT
--- NOTE | 2018-04-23 04:00 | ER Document Report ---
ED General - General Chief Complaint: Sickle Cell Crisis Stated Complaint: MUSCLE/JOINT PAIN Time Seen by Provider: 04/22/18 20:28 Notes: Patient is a 37-year-old male has a history of sickle cell disease who presents with complaint of pain over the left side of his chest as well as some pain into his extremities. He says extremity pain is pretty typical for him. He says chest pain is intermittent. He says that hurts whenever he twists or turns a certain way. Some pleuritic. No fevers. No vomiting. No difficulty breathing. He has had acute chest syndrome in the past but this feels different. No history of coronary disease or heart attack. Pain in his joints and extremities is very typical for his sickle cell crisis per his history. Patient is followed by otology and says that they do not have a next appointment till tomorrow. Pain is worsening today and therefore he came to the ER for treatment. TRAVEL OUTSIDE OF THE [place] IN LAST 30 DAYS: No - Related Data Allergies/Adverse Reactions: famotidine [From Pepcid] Allergy (Severe, Verified 04/18/18 04:48) Anaphylaxis ketorolac tromethamine [From Toradol] Allergy (Severe, Verified 04/18/18 04:48) levofloxacin [From Levaquin] Allergy (Severe, Verified 04/18/18 04:48) meperidine HCl [From Demerol] Allergy (Severe, Verified 04/18/18 04:48) morphine [Morphine] Allergy (Severe, Verified 04/18/18 04:48) tramadol HCl [From Ultram] Allergy (Severe, Verified 04/18/18 04:48) amoxicillin [Amoxicillin] Allergy (Verified 04/18/18 04:48) fentanyl [Fentanyl] Allergy (Verified 04/18/18 04:48) latex [Latex] Allergy (Verified 04/18/18 04:48) ondansetron HCl [From Zofran] Allergy (Verified 04/18/18 04:48) Past Medical History - Social History Smoking Status: Never Smoker Chew tobacco use (# tins/day): No Frequency of alcohol use: None Drug Abuse: None Family History: Reviewed & Not Pertinent, Other - Refused Patient has suicidal ideation: No Patient has homicidal ideation: No - Past Medical History Cardiac Medical History: Denies: Hx Atrial Fibrillation, Hx Congestive Heart Failure, Hx Coronary Artery Disease Pulmonary Medical History: Denies: Hx Bronchitis, Hx Tuberculosis Neurological Medical History: Reports: Hx Seizures Endocrine Medical History: Denies: Hx Diabetes Mellitus Type 1, Hx Diabetes Mellitus Type 2 Renal/ Medical History: Denies: Hx Peritoneal Dialysis Musculoskeletal Medical History: Reports Hx Musculoskeletal Deformity - right hip avascular necrosis Psychiatric Medical History: Denies: Hx Depression Past Surgical History: Reports: Hx Appendectomy, Hx Vascular Surgery - L port placement, Other - Port placement - Immunizations Immunizations up to date: Yes Hx Diphtheria, Pertussis, Tetanus Vaccination: Yes Hx Pneumococcal Vaccination: 02/20/11 Review of Systems - Review of Systems Notes: My Normal Review Basic REVIEW OF SYSTEMS: CONSTITUTIONAL : Denies fever, chills, or sweats. Denies recent illness. EENT: Denies eye, ear, throat, or mouth pain or symptoms. Denies nasal or sinus congestion. CARDIOVASCULAR: Chest pain RESPIRATORY: Denies cough, cold, or chest congestion. Denies shortness of breath, difficulty breathing, or wheezing. GASTROINTESTINAL: Denies abdominal pain. Denies nausea, vomiting, or diarrhea. MUSCULOSKELETAL: Pain in extremities. SKIN: Denies rash or skin lesions. HEMATOLOGIC : Sickle cell disease NEUROLOGICAL: Denies altered mental status or loss of consciousness. Mild headache. Denies weakness or paralysis or loss of use of either side. Denies problems with gait or speech. Denies sensory or motor loss. ALL OTHER SYSTEMS REVIEWED AND NEGATIVE. Physical Exam - Vital signs Vitals: Temp Pulse Resp BP Pulse Ox 99.1 F 60 16 129/81 H 97 04/22/18 18:33 04/22/18 18:33 04/22/18 18:33 04/22/18 18:33 04/22/18 18:33 - Notes Notes: General Appearance: Well nourished, alert, cooperative, no acute distress, moderate obvious discomfort. Vitals: reviewed, See vital signs table. Head: no swelling or tenderness to the head Eyes: PERRL, EOMI, Conjuctiva clear Mouth: No decreasd moisture Throat: No tonsillar inflammation, No airway obstruction, No lymphadenopathy Neck: Supple, no neck tenderness Chest wall: Patient has easily reproducible pain to palpation over the left anterior rib cage. Patient says the pain reproduced with palpation and motion is same pain that he has been experiencing. Lungs: No wheezing, No rales, No rhonci, No accessory muscle use, good air exchange bilaterally. Heart: Normal rate, Regular rythm, No murmur, no rub Abdomen: Normal BS, soft, No rigidity, No abdominal tenderness, No guarding, no rebound, no abdominal masses Extremities: strength 5/5 in all extremities, good pulses in all extremities, no swelling in the extremities, no edema. She has full range of motion of his extremities. Some pain with range of motion of the lower extremities. Skin: warm, dry, appropriate color, no rash Neuro: speech clear, oriented x 3, normal affect, responds appropriately to questions. Cranial nerves II through XII are intact. Distal sensation intact. No neurologic deficits on exam. Course - Re-evaluation Re-evalutation: 04/23/18 03:59 Patient says his pain is much improved. Is down to a 2. He still has some pain and does request more dose of pain medicine. I am agreeable to this but informed him if after this dose he still having significant pain we may have to consider admission. He is understanding of this but says he thinks he will do well with no more dose. A portable more dose of pain medication. Patient's vital signs are stable and continues look well. 04/23/18 04:56 Patient is feeling much better and said he would like to go home. I do not suspect acute chest syndrome and that he does not have a fever, does not have leukocytosis, his chest x-ray actually shows improvement in comparison to his previous chest x-rays, he does not have concerning bilateral infiltrative processes, and his pain is easily reproducible palpation of his chest. Patient looks well. His vital signs are stable. I feel he safe to be discharged home. I did offer admission for recurrent pain patient says his pain is a level where he wants to go home and does not want admission at this time. I strongly encouraged him to return to ER if he has recurrent pain, fevers, difficulty breathing, or if he feels unwell. Patient agrees with plan and will be discharged home. Dictation of this chart was performed using voice recognition software; therefore, there may be some unintended grammatical errors. - Vital Signs Vital signs: Temp Pulse Resp BP Pulse Ox 97.9 F 60 16 151/83 H 100 04/23/18 01:29 04/22/18 18:33 04/23/18 04:09 04/23/18 04:09 04/23/18 02:00 - Laboratory Result Diagrams: 04/23/18 00:50 04/23/18 00:50 Laboratory results interpreted by me: 04/23/18 04/23/18 00:50 00:50 RBC 2.68 L Hgb 9.6 L Hct 27.7 L MCV 103 H MCH 35.9 H RDW 18.5 H Band Neutrophils % 1 L Monocytes % (Manual) 18 H Retic Count (auto) 7.15 H Absolute Retic 0.192 H Potassium 3.5 L Glucose 140 H Total Bilirubin 1.8 H Discharge - Discharge Clinical Impression: Sickle cell crisis Sickle cell disease Qualifiers: Sickle-cell associated disorders: with unspecified crisis Qualified Code(s): D57.00 - Hb-SS disease with crisis, unspecified Condition: Good Disposition: HOME, SELF-CARE Additional Instructions: Please take your pain medicine as prescribed. Please have a low threshold to return to the ER if you have fevers, difficulty breathing, recurrent coughing, worsening pain, any abdominal pain, or if you feel unwell. Please follow-up with your reed cleaner at [facility] in the next 1-2 days.
[2018-04-23 05:42] VITALS: BP 135/97
== END 2018-04-23 05:42 | disposition home or self-care (01) ==
LOC: ER 18:06
DX: D57.00 Hb-SS disease with crisis, unspecified (principal); R07.81 Pleurodynia; Z88.8 Allergy status to other drugs, medicaments and biological substances; Z88.1 Allergy status to other antibiotic agents; Z88.5 Allergy status to narcotic agent; Z88.0 Allergy status to penicillin; Z91.040 Latex allergy status
CPT/HCPCS: 96376; 99284; 96361; 96374; 96375; 36415; 85025; 85045; 80053; 84484; 71045; A9270; J1200; J1170; J7030

== ENCOUNTER 2018-04-28 23:35 | Emergency (ER) | payer MEDICARE, MEDICAID ==
[2018-04-29] MEDS ORDERED: DIPHENHYDRAMINE HCL 50 MG/ML VIAL IV ONE ×2 (02:21→04:33)
[2018-04-29] MEDS ORDERED: HYDROMORPHONE HCL INJ/PF 2 MG/ML AMPULE IV ONE ×3 (02:21→04:33)
--- NOTE | 2018-04-29 02:23 | ER Document Report ---
ED General - General Chief Complaint: Sickle Cell Crisis Stated Complaint: PAIN ALL OVER Time Seen by Provider: 04/29/18 02:15 Notes: Patient is a 37-year-old male with a past medical history of sickle cell disease that comes to the emergency department for chief complaint of body aches mainly in his shoulder and his legs. He states that he has been doing well for the past week, he did travel and after he got home he went to bed and started to have sharp pains everywhere. He denies chest pain, difficulty breathing, fever, nausea, vomiting. He denies headache. He states his home medications including oxycodone and methadone were not helping his pain. TRAVEL OUTSIDE OF THE [place] IN LAST 30 DAYS: No - Related Data Allergies/Adverse Reactions: famotidine [From Pepcid] Allergy (Severe, Verified 04/18/18 04:48) Anaphylaxis ketorolac tromethamine [From Toradol] Allergy (Severe, Verified 04/18/18 04:48) levofloxacin [From Levaquin] Allergy (Severe, Verified 04/18/18 04:48) meperidine HCl [From Demerol] Allergy (Severe, Verified 04/18/18 04:48) morphine [Morphine] Allergy (Severe, Verified 04/18/18 04:48) tramadol HCl [From Ultram] Allergy (Severe, Verified 04/18/18 04:48) amoxicillin [Amoxicillin] Allergy (Verified 04/18/18 04:48) fentanyl [Fentanyl] Allergy (Verified 04/18/18 04:48) latex [Latex] Allergy (Verified 04/18/18 04:48) ondansetron HCl [From Zofran] Allergy (Verified 04/18/18 04:48) Past Medical History - General Information source: Patient - Social History Smoking Status: Never Smoker Frequency of alcohol use: None Drug Abuse: None Lives with: Family Family History: Reviewed & Not Pertinent, Other - Refused Patient has suicidal ideation: No Patient has homicidal ideation: No - Past Medical History Cardiac Medical History: Denies: Hx Atrial Fibrillation, Hx Congestive Heart Failure, Hx Coronary Artery Disease Pulmonary Medical History: Denies: Hx Bronchitis, Hx Tuberculosis Neurological Medical History: Reports: Hx Seizures Endocrine Medical History: Denies: Hx Diabetes Mellitus Type 1, Hx Diabetes Mellitus Type 2 Renal/ Medical History: Denies: Hx Peritoneal Dialysis Musculoskeletal Medical History: Reports Hx Musculoskeletal Deformity - right hip avascular necrosis Psychiatric Medical History: Denies: Hx Depression Past Surgical History: Reports: Hx Appendectomy, Hx Vascular Surgery - L port placement, Other - Port placement - Immunizations Immunizations up to date: Yes Hx Diphtheria, Pertussis, Tetanus Vaccination: Yes Hx Pneumococcal Vaccination: 02/20/11 Review of Systems - Review of Systems Constitutional: See HPI EENT: No symptoms reported Cardiovascular: No symptoms reported Respiratory: No symptoms reported Gastrointestinal: No symptoms reported Genitourinary: No symptoms reported Male Genitourinary: No symptoms reported Musculoskeletal: See HPI Skin: No symptoms reported Hematologic/Lymphatic: No symptoms reported Neurological/Psychological: No symptoms reported Physical Exam - Vital signs Vitals: Temp Pulse Resp BP Pulse Ox 98.3 F 73 16 130/82 H 97 04/28/18 23:39 04/28/18 23:39 04/28/18 23:39 04/28/18 23:39 04/28/18 23:39 - Notes Notes: GENERAL: Alert, interacts well. No acute distress. HEAD: Normocephalic, atraumatic. EYES: Pupils equal, round, and reactive to light. Extraocular movements intact. ENT: Oral mucosa moist, tongue midline. Oropharynx unremarkable. Airway patent. Nares patent, no nasal septal hematoma, TM's intact. NECK: Full range of motion. Supple. Trachea midline. LUNGS: Clear to auscultation bilaterally, no wheezes, rales, or rhonchi. No resp iratory distress. HEART: Regular rate and rhythm. No murmur ABDOMEN: Soft, non-tender. Non-distended. Bowel sounds present in all 4 quadrants. GENITOURINARY: Deferred EXTREMITIES: Moves all 4 extremities spontaneously. No edema, normal radial and dorsalis pedis pulses bilaterally. No cyanosis. BACK: no cervical, thoracic, lumbar midline tenderness. No saddle anesthesia, normal distal neurovascular exam. NEUROLOGICAL: Alert and oriented x3. Normal speech. [cranial nerves II through XII grossly intact]. PSYCH: Normal affect, normal mood. SKIN: Warm, dry, normal turgor. No rashes or lesions noted. Course - Re-evaluation Re-evalutation: Patient alert and well-appearing. Unremarkable physical exam without tachypnea, signs of distress. Vital signs are unremarkable. Port was accessed, patient was treated for suspected sickle cell pain crisis. I have very low suspicion of acute chest syndrome based on his lack of hypoxia, distress, or symptoms of shortness of breath or chest pain. Patient has received 2 rounds of pain medication. On reevaluation patient states his pain is almost completely gone, he feels much better, he would like to be released after another dose. He remains alert and well-appearing. Vital signs are unremarkable. Patient has home medications and good follow-up. Discussed return precautions. Patient states satisfaction and agreement with plan. - Vital Signs Vital signs: Temp Pulse Resp BP Pulse Ox 98.7 F 76 15 132/92 H 100 04/29/18 04:53 04/29/18 04:53 04/29/18 04:53 04/29/18 04:53 04/29/18 04:53 - Laboratory Result Diagrams: 04/29/18 02:46 04/29/18 02:46 Laboratory results interpreted by me: 04/29/18 04/29/18 02:46 02:46 RBC 2.68 L Hgb 9.4 L Hct 27.4 L MCV 103 H MCH 35.2 H RDW 17.5 H Seg Neuts % (Manual) 36 L Band Neutrophils % 1 L Monocytes % (Manual) 14 H Retic Count (auto) 7.08 H Absolute Retic 0.190 H Total Bilirubin 1.9 H Discharge - Discharge Clinical Impression: Sickle cell crisis Joint pain Qualifiers: Joint pain location: unspecified Qualified Code(s): M25.50 - Pain in unspecified joint Condition: Stable Disposition: HOME, SELF-CARE Additional Instructions: Continue your home medications for pain. Stay hydrated. Get plenty of rest. Follow-up closely with your department head. Return if you worsen including difficulty breathing, fever, severe pain, or any other concerning or worsening symptoms.
[2018-04-29 03:02] LABS: HEMATOCRIT 27.4 % (37.9-51.0); HEMOGLOBIN 9.4 g/dL (13.5-17.0); MEAN CORPUSCULAR HEMOGLOBIN 35.2 pg (27.0-33.4); MEAN CORPUSCULAR HGB CONC 34.4 g/dL (32.0-36.0); MEAN CORPUSCULAR VOLUME 103 fl (80-97); PLATELET COUNT 314 10^3/uL (150-450); RED BLOOD COUNT 2.68 10^6/uL (4.35-5.55); RED CELL DISTRIBUTION WIDTH 17.5 % (11.5-14.0); RETICULOCYTE COUNT (AUTO) 7.08 % (0.66-2.85); WHITE BLOOD COUNT 6.2 10^3/uL (4.0-10.5)
[2018-04-29 03:06] LABS: ALANINE AMINOTRANSFERASE 22 U/L (21-72); ALKALINE PHOSPHATASE 59 U/L (38-126); ANION GAP 6 (5-19); ASPARTATE AMINO TRANSFERASE 30 U/L (17-59); BILIRUBIN,DIRECT 0.1 mg/dL (0.0-0.4); BILIRUBIN,TOTAL 1.9 mg/dL (0.2-1.3); BLOOD UREA NITROGEN 14 mg/dL (7-20); CALCIUM 8.6 mg/dL (8.4-10.2); CARBON DIOXIDE 29 mmol/L (22-30); CHLORIDE 107 mmol/L (98-107); GLUCOSE 96 mg/dL (75-110); POTASSIUM 3.7 mmol/L (3.6-5.0); SODIUM 142.4 mmol/L (137-145); TOTAL PROTEIN 7.6 g/dL (6.3-8.2)
[2018-04-29 03:24] LABS: ABSOLUTE LYMPHOCYTES# (MANUAL) 2.9 10^3/uL (0.5-4.7); ABSOLUTE MONOCYTES # (MANUAL) 0.9 10^3/uL (0.1-1.4); ABSOLUTE NEUTROPHILS# (MANUAL) 2.3 10^3/uL (1.7-8.2); BAND NEUTROPHILS % (MANUAL) 1 % (3-5); BASOPHILS % (MANUAL) 1 % (0-2); EOSINOPHILS % (MANUAL) 2 % (0-6); LYMPHOCYTES % (MANUAL) 44 % (13-45); MONOCYTES % (MANUAL) 14 % (3-13); SEGMENTED NEUTROPHILS % (MAN) 36 % (42-78); TOTAL CELLS COUNTED 100
[2018-04-29 03:31] LABS: ANISOCYTOSIS 1+; POIKILOCYTOSIS 2+; POLYCHROMASIA 1+; TOXIC GRANULATION SLIGHT; TOXIC VACUOLATION PRESENT
[2018-04-29 03:32] LABS: HOWELL-JOLLY BODIES PRESENT; OVALOCYTES 2+; PLATELET COMMENT ADEQUATE; SCHISTOCYTES 1+; SICKLE RED CELLS 2+; TARGET CELLS 2+; TEAR DROP CELLS 1+
[2018-04-29 04:16] VITALS: BP 132/92
== END 2018-04-29 05:08 | disposition home or self-care (01) ==
LOC: ER 23:35
DX: D57.00 Hb-SS disease with crisis, unspecified (principal); M25.50 Pain in unspecified joint; Z88.6 Allergy status to analgesic agent; Z91.040 Latex allergy status
CPT/HCPCS: 36591; 96376; 99284; 96374; 96375; 36415; 85025; 85045; 80053; J1200; J1170

== ENCOUNTER 2018-04-30 01:12 | Inpatient (IN) | payer MEDICARE, MEDICAID ==
[2018-04-30] MEDS ORDERED: HYDROMORPHONE HCL INJ/PF 2 MG/ML AMPULE IV ONE ×4 (02:21→15:10)
[2018-04-30] MEDS ORDERED: DIPHENHYDRAMINE HCL 50 MG/ML VIAL IV ONE ×2 (02:21→05:25)
--- NOTE | 2018-04-30 02:36 | ER Document Report ---
ED General - General Chief Complaint: Sickle Cell Crisis Stated Complaint: JOINT PAIN Time Seen by Provider: 04/30/18 02:20 Notes: Patient is a 37-year-old male presents with complaint of pain in his joints. Pain is mostly in his legs. Is typical for his sickle cell pain. He has history of sickle cell disease. He said acute chest syndrome before. He denies any cough or difficulty breathing. He has had some nasal congestion. He has no t checked his temp at home. He says at times he felt chilled but has not checked a step to see if he actually has a fever. Currently he says his main complaint is more that he has the aches and pains in his lower extremities. No abdominal pain. No vomiting. No other complaints at this time. He was seen yesterday in the ED and improved and was sent home. Patient said he had a good day and worked all day and did well but then tonight woke up with the pain in his legs and therefore came to the ER. He did take a dose of oxycodone at home which did not improve his pain. TRAVEL OUTSIDE OF THE [place] IN LAST 30 DAYS: No - Related Data Allergies/Adverse Reactions: famotidine [From Pepcid] Allergy (Severe, Verified 04/18/18 04:48) Anaphylaxis ketorolac tromethamine [From Toradol] Allergy (Severe, Verified 04/18/18 04:48) levofloxacin [From Levaquin] Allergy (Severe, Verified 04/18/18 04:48) meperidine HCl [From Demerol] Allergy (Severe, Verified 04/18/18 04:48) morphine [Morphine] Allergy (Severe, Verified 04/18/18 04:48) tramadol HCl [From Ultram] Allergy (Severe, Verified 04/18/18 04:48) amoxicillin [Amoxicillin] Allergy (Verified 04/18/18 04:48) fentanyl [Fentanyl] Allergy (Verified 04/18/18 04:48) latex [Latex] Allergy (Verified 04/18/18 04:48) ondansetron HCl [From Zofran] Allergy (Verified 04/18/18 04:48) Past Medical History - Social History Smoking Status: Never Smoker Frequency of alcohol use: None Drug Abuse: None Family History: Reviewed & Not Pertinent, Other - Refused - Past Medical History Cardiac Medical History: Denies: Hx Atrial Fibrillation, Hx Congestive Heart Failure, Hx Coronary Artery Disease Pulmonary Medical History: Denies: Hx Bronchitis, Hx Tuberculosis Neurological Medical History: Reports: Hx Seizures Endocrine Medical History: Denies: Hx Diabetes Mellitus Type 1, Hx Diabetes Mellitus Type 2 Renal/ Medical History: Denies: Hx Peritoneal Dialysis Musculoskeletal Medical History: Reports Hx Musculoskeletal Deformity - right hip avascular necrosis Psychiatric Medical History: Denies: Hx Depression Past Surgical History: Reports: Hx Appendectomy, Hx Vascular Surgery - L port placement, Other - Port placement - Immunizations Immunizations up to date: Yes Hx Diphtheria, Pertussis, Tetanus Vaccination: Yes Hx Pneumococcal Vaccination: 02/20/11 Review of Systems - Review of Systems Notes: My Normal Review Basic REVIEW OF SYSTEMS: CONSTITUTIONAL : Denies fever, chills, or sweats. Denies recent illness. EENT: Nasal congestion. CARDIOVASCULAR: Denies chest pain. RESPIRATORY: Denies cough, cold, or chest congestion. Denies shortness of breath, difficulty breathing, or wheezing. GASTROINTESTINAL: Denies abdominal pain. Denies nausea, vomiting, or diarrhea. Denies constipation. Last BM: GENITOURINARY: Denies difficulty urinating, painful urination, burning, frequency, or blood in urine. MUSCULOSKELETAL: Pain in legs. SKIN: Denies rash or skin lesions. HEMATOLOGIC : Sickle cell disease NEUROLOGICAL: Denies altered mental status or loss of consciousness. Denies headache. Denies weakness or paralysis or loss of use of either side. Denies problems with gait or speech. Denies sensory or motor loss. ALL OTHER SYSTEMS REVIEWED AND NEGATIVE. Physical Exam - Vital signs Vitals: Temp Pulse Resp BP Pulse Ox 98.3 F 73 16 138/92 H 96 04/30/18 01:13 04/30/18 01:13 04/30/18 01:13 04/30/18 01:13 04/30/18 01:13 - Notes Notes: General Appearance: Well nourished, alert, cooperative, no acute distress, moderate obvious discomfort. Vitals: reviewed, See vital signs table. Head: no swelling or tenderness to the head Eyes: PERRL, EOMI, Conjuctiva clear Mouth: No decreasd moisture Throat: No tonsillar inflammation, No airway obstruction, No lymphadenopathy Neck: Supple, no neck tenderness, No thyromegaly Lungs: No wheezing, No rales, No rhonci, No accessory muscle use, good air exchange bilaterally. Heart: Normal rate, Regular rythm, No murmur, no rub Abdomen: Normal BS, soft, No rigidity, no reproducible abdominal tenderness to palpation., No guarding, no rebound, no abdominal masses, no organomegaly Extremities: strength 5/5 in all extremities, good pulses in all extremities, pain to palpation of the muscles of the patient's legs. No erythema or swelling. Some mild pain in the upper extremities. Skin: warm, dry, appropriate color, no rash Neuro: speech clear, oriented x 3, normal affect, responds appropriately to questions. Course - Re-evaluation Re-evalutation: 04/30/18 03:46 I reevaluated the patient. Patient still has pain in his extremities. No difficulty breathing. No chest pain. We will reduce his pain medicine to see if he has improvement. Still awaiting results for CBC and reticulocyte cell count. 04/30/18 06:14 Patient continues have pain. This is despite multiple doses of pain medication. Pain is improving however pain is not fully resolving. Still has pain in his extremities that is worse on the right side. No signs of acute chest syndrome. He has no fever. No cough. Lung stevens are clear on auscultation. He otherwise looks well and I feel he is appropriate for admission for pain control for acute sickle cell disease. Hemoglobin is stable. No leukocytosis. I did speak with the hospitalist, Dr. Bo, who agrees to evaluate the patient for admission. Dictation of this chart was performed using voice recognition software; therefore, there may be some unintended grammatical errors. - Vital Signs Vital signs: Temp Pulse Resp BP Pulse Ox 98.3 F 73 16 138/92 H 96 04/30/18 01:13 04/30/18 01:13 04/30/18 01:13 04/30/18 01:13 04/30/18 01:13 - Laboratory Result Diagrams: 04/30/18 02:54 04/30/18 02:54 Laboratory results interpreted by me: 04/30/18 04/30/18 02:54 02:54 RBC 2.68 L Hgb 9.7 L Hct 27.5 L MCV 103 H MCH 36.2 H RDW 18.1 H Retic Count (auto) 8.03 H Absolute Retic 0.215 H Chloride 108 H Total Bilirubin 2.1 H Discharge - Discharge Clinical Impression: Sickle cell crisis Sickle cell anemia Qualifiers: Sickle-cell associated disorders: with unspecified crisis Qualified Code(s): D57.00 - Hb-SS disease with crisis, unspecified; D57.0 - Hb-SS disease with crisis Condition: Stable Disposition: ADMITTED OBSERVATION Admitting Provider: Hospitalist Unit Admitted: Telemetry
[2018-04-30 03:27] LABS: ABSOLUTE RETICS # 0.215 10^6/uL (0.028-0.122); HEMATOCRIT 27.5 % (37.9-51.0); HEMOGLOBIN 9.7 g/dL (13.5-17.0); MEAN CORPUSCULAR HEMOGLOBIN 36.2 pg (27.0-33.4); MEAN CORPUSCULAR HGB CONC 35.3 g/dL (32.0-36.0); MEAN CORPUSCULAR VOLUME 103 fl (80-97); PLATELET COUNT 351 10^3/uL (150-450); RED BLOOD COUNT 2.68 10^6/uL (4.35-5.55); RED CELL DISTRIBUTION WIDTH 18.1 % (11.5-14.0); RETICULOCYTE COUNT (AUTO) 8.03 % (0.66-2.85)
[2018-04-30 03:30] LABS: ALANINE AMINOTRANSFERASE 22 U/L (21-72); ALBUMIN 4.1 g/dL (3.5-5.0); ALKALINE PHOSPHATASE 74 U/L (38-126); ANION GAP 8 (5-19); ASPARTATE AMINO TRANSFERASE 36 U/L (17-59); BILIRUBIN,DIRECT 0.2 mg/dL (0.0-0.4); BILIRUBIN,TOTAL 2.1 mg/dL (0.2-1.3); BLOOD UREA NITROGEN 9 mg/dL (7-20); CALCIUM 8.6 mg/dL (8.4-10.2); CARBON DIOXIDE 27 mmol/L (22-30); CHLORIDE 108 mmol/L (98-107); GLUCOSE 86 mg/dL (75-110); POTASSIUM 3.6 mmol/L (3.6-5.0); SODIUM 142.7 mmol/L (137-145); TOTAL PROTEIN 7.7 g/dL (6.3-8.2)
[2018-04-30 03:52] LABS: ABSOLUTE LYMPHOCYTES# (MANUAL) 2.9 10^3/uL (0.5-4.7); ABSOLUTE MONOCYTES # (MANUAL) 0.6 10^3/uL (0.1-1.4); ABSOLUTE NEUTROPHILS# (MANUAL) 3.4 10^3/uL (1.7-8.2); BASOPHILS % (MANUAL) 2 % (0-2); EOSINOPHILS % (MANUAL) 0 % (0-6); LYMPHOCYTES % (MANUAL) 41 % (13-45); MONOCYTES % (MANUAL) 8 % (3-13); NUCLEATED RED BLOOD CELLS 1 /100 WBC (0); SEGMENTED NEUTROPHILS % (MAN) 49 % (42-78); TOTAL CELLS COUNTED 100
[2018-04-30 03:53] LABS: ANISOCYTOSIS 1+; POIKILOCYTOSIS 2+; POLYCHROMASIA 1+; SCHISTOCYTES 1+; SICKLE RED CELLS 1+; TARGET CELLS 1+; TOXIC GRANULATION 1+
[2018-04-30 03:54] LABS: PLATELET COMMENT ADEQUATE; PLATELET GIANT PRESENT; PLATELET LARGE PRESENT
[2018-04-30] MEDS ORDERED: NORMAL SALINE 1000 ML 1,000 ML IV ONE (06:03)
[2018-04-30] MEDS ORDERED: MAG HYDROX/AL HYDROX/SIMETH SUSP 30 ML UDCUP PO PRN (06:09)
[2018-04-30] MEDS ORDERED: MAGNESIUM HYDROXIDE SUSP 30 ML UDCUP PO PRN (06:09)
[2018-04-30] MEDS ORDERED: HYDROMORPHONE HCL INJ/PF 2 MG/ML AMPULE IV PRN ×5 (06:18→15:05)
--- NOTE | 2018-04-30 07:26 | PDOC H&P ---
History of Present Illness Admission Date/PCP: 04/30/18 06:17 Patient complains of: Sickle cell crisis pain History of Present Illness: MARISA GARBER is a 37 year old male who presented to the emergency room with a 1 day history of bilateral lower extremity pain. He admits a history of sickle cell disease and this is his typical sickle cell pain. Pain involves the joints of his lower extremities as well as the muscular areas. He further admits that in the last 3-4-weeks he has been experiencing lesser episodes of similar pain. He rates the pain at the present time as severe and admits that it is not radiating and tends to wax and wane. He further admits numerous similar episodes in the past many of which have required hospitalization for pain con trol. He denies any aggravating or ameliorating factors identified for his pain. He has had accompanying symptoms of subjective fever and chills with the current episode. In the emergency room he was treated with IV fluid and analgesics which helped but did not resolve the symptoms and as such he was admitted to the hospital for further evaluation and treatment. Past Medical History Cardiac Medical History: Denies: Atrial Fibrillation, Congestive Heart Failure, Coronary Artery Disease Pulmonary Medical History: Denies: Bronchitis, Tuberculosis EENT Medical History: Reports: None Neurological Medical History: Reports: Seizures Denies: Ischemic CVA, Migraine Endocrine Medical History: Denies: Diabetes Mellitus Type 1, Diabetes Mellitus Type 2, Obesity Renal/ Medical History: Denies: Chronic Kidney Disease, Nephrolithiasis Malignancy Medical History: Reports: None GI Medical History: Denies: Cirrhosis, Hepatitis Musculoskeltal Medical History: Denies: Arthritis, Gout Skin Medical History: Denies: Eczema, Psoriasis Psychiatric Medical History: Denies: Alcohol Dependency, Depression, Substance Abuse, Tobacco Dependency Traumatic Medical History: Reports: None Hematology: Reports: Anemia, Sickle Cell Disease Denies: Hemophilia Infectious Medical History: Reports: None Past Surgical History Past Surgical History: Reports: Appendectomy, Vascular Surgery - L port placement, Other - Port placement Social History Information Source: Patient Smoking Status: Never Smoker Frequency of Alcohol Use: None Hx Recreational Drug Use: No Drugs: None, Methadone Hx Prescription Drug Abuse: No - Advance Directive Resuscitation Status: Full Code Surrogate healthcare decision maker:: Spouse Family History Family History: Other - Sickle cell disease Parental Family History Reviewed: Yes Children Family History Reviewed: Yes Sibling(s) Family History Reviewed.: Yes Medication/Allergy Home Medications: Methadone HCl [Dolophine HCl] 5 mg PO BID 10/11/16 Oxycodone HCl [Oxycodone HCl 10 MG Tablet] 10 mg PO Q8HP PRN 04/05/17 Baclofen [Baclofen 10 mg Tablet] 10 mg PO DAILY PRN 03/22/18 Hydroxyurea 500 mg PO DAILY 03/22/18 Docusate Sodium [Colace 100 mg Capsule] 100 mg PO DAILY 04/22/18 Folic Acid [Folvite 1 mg Tablet] 1 mg PO DAILY 04/22/18 Allergies/Adverse Reactions: famotidine [From Pepcid] Allergy (Severe, Verified 04/18/18 04:48) Anaphylaxis ketorolac tromethamine [From Toradol] Allergy (Severe, Verified 04/18/18 04:48) levofloxacin [From Levaquin] Allergy (Severe, Verified 04/18/18 04:48) meperidine HCl [From Demerol] Allergy (Severe, Verified 04/18/18 04:48) morphine [Morphine] Allergy (Severe, Verified 04/18/18 04:48) tramadol HCl [From Ultram] Allergy (Severe, Verified 04/18/18 04:48) amoxicillin [Amoxicillin] Allergy (Verified 04/18/18 04:48) fentanyl [Fentanyl] Allergy (Verified 04/18/18 04:48) latex [Latex] Allergy (Verified 04/18/18 04:48) ondansetron HCl [From Zofran] Allergy (Verified 04/18/18 04:48) Review of Systems Constitutional: PRESENT: chills - Subjective, fever(s) - Subjective Eyes: ABSENT: visual disturbances, other - Ocular pain Ears: ABSENT: hearing changes, other - Ear pain Nose, Mouth, and Throat: ABSENT: mouth pain, sore throat Cardiovascular: ABSENT: chest pain, dyspnea on exertion, palpitations Gastrointestinal: ABSENT: abdominal pain, constipation, diarrhea, nausea, vomiting Genitourinary: ABSENT: dysuria, hematuria Musculoskeletal: PRESENT: other - Joint pain, muscular pain. ABSENT: back pain, deformity Integumentary: PRESENT: pruritus - With pain medication. ABSENT: rash Neurological: ABSENT: confusion, convulsions, memory loss, tremor(s) Psychiatric: ABSENT: anxiety, depression Endocrine: ABSENT: cold intolerance, heat intolerance Hematologic/Lymphatic: ABSENT: easy bleeding, easy bruising Physical Exam Vital Signs: Temp Pulse Resp BP Pulse Ox 98.3 F 73 16 138/92 H 96 04/30/18 01:13 04/30/18 01:13 04/30/18 01:13 04/30/18 01:13 04/30/18 01:13 Intake & Output 04/28/18 04/29/18 04/30/18 23:59 23:59 23:59 Weight 81.647 kg General appearance: PRESENT: cooperative, mild distress - Secondary to leg pains Head exam: PRESENT: atraumatic, normocephalic Eye exam: PRESENT: conjunctiva pink. ABSENT: scleral icterus Ear exam: PRESENT: normal external ear exam. ABSENT: bleeding Mouth exam: PRESENT: dry mucosa, neck supple Neck exam: ABSENT: thyromegaly, tracheal deviation Respiratory exam: PRESENT: clear to auscultation anastasiya, symmetrical, unlabored Cardiovascular exam: PRESENT: RRR. ABSENT: clicks, gallop, rubs Pulses: PRESENT: normal radial pulses, normal dorsalis pedis pul Vascular exam: PRESENT: normal capillary refill. ABSENT: pallor GI/Abdominal exam: PRESENT: normal bowel sounds, soft Rectal exam: PRESENT: deferred Extremities exam: PRESENT: tenderness - Musculature of the bilateral lower extremities, bilateral knees, right hip and bilateral ankles. ABSENT: joint swelling, pedal edema Musculoskeletal exam: ABSENT: deformity, dislocation Neurological exam: PRESENT: alert, oriented to person, oriented to place, orien onesimo to time, oriented to situation, CN II-XII grossly intact. ABSENT: motor sensory deficit Psychiatric exam: PRESENT: appropriate affect, normal mood Skin exam: PRESENT: dry, intact, warm. ABSENT: jaundice, rash, urticaria Results Laboratory Results: 04/30/18 02:54 04/30/18 02:54 04/30/18 04/30/18 02:54 02:54 WBC 7.0 RBC 2.68 L Hgb 9.7 L Hct 27.5 L MCV 103 H MCH 36.2 H MCHC 35.3 RDW 18.1 H Plt Count 351 Seg Neutrophils % Not Reportable Lymphocytes % Not Reportable Monocytes % Not Reportable Eosinophils % Not Reportable Basophils % Not Reportable Absolute Neutrophils Not Reportable Absolute Lymphocytes Not Reportable Absolute Monocytes Not Reportable Absolute Eosinophils Not Reportable Absolute Basophils Not Reportable Retic Count (auto) 8.03 H Absolute Retic 0.215 H Sodium 142.7 Potassium 3.6 Chloride 108 H Carbon Dioxide 27 Anion Gap 8 BUN 9 Creatinine 0.59 Est GFR ( Amer) > 60 Est GFR (Non-Af Amer) > 60 Glucose 86 Calcium 8.6 Total Bilirubin 2.1 H AST 36 ALT 22 Alkaline Phosphatase 74 Total Protein 7.7 Albumin 4.1 Assessment & Plan - Diagnosis (1) Sickle cell crisis Is this a current diagnosis for this admission?: Yes Plan: Patient will be admitted and receive IV fluids and high-volume, 250 mL/h. Additionally he will be treated with Dilaudid 2 mg IV every hour as needed pain Phenergan 25 mg IV every 4 hours as needed nausea vomiting and Benadryl 25 mg IV every 4 hours as needed itching. He will be started on high-dose hydroxyurea [address] Medellin will be consulted. (2) Joint pain Qualifiers: Joint pain location: unspecified Qualified Code(s): M25.50 - Pain in unspecified joint Is this a current diagnosis for this admission?: Yes Plan: Patient's joint pain will be treated with Dilaudid 2-3 mg IV every 2 hours as needed pain. (3) Sickle cell anemia Qualifiers: Sickle-cell associated disorders: with unspecified crisis Qualified Code(s): D57.00 - Hb-SS disease with crisis, unspecified; D57.0 - Hb-SS disease with crisis Is this a current diagnosis for this admission?: Yes Plan: Dr. Medellin will be consulted for input into the management of patient's sickle cell disease. (4) DVT prophylaxis Is this a current diagnosis for this admission?: Yes Plan: Patient will be treated with Arixtra for DVT prophylaxis. - Time Time Spent: 30 to 50 Minutes Critical Time spent with patient: Less than 15 minutes Medications reviewed and adjusted accordingly: Yes Anticipated discharge: Home - Inpatient Certification Based on my medical assessment, after consideration of the patient's comorbidities, presenting symptoms, or acuity I expect that the services needed warrant INPATIENT care.: Yes I certify that my determination is in accordance with my understanding of Medicare's requirements for reasonable and necessary INPATIENT services [42 CFR 412.3e].: Yes Medical Necessity: Need Close Monitoring Due to Risk of Patient Decompensation, Need For IV Fluids, Need for Pain Control, Risk of Complication if Not Cared For in Hospital
--- NOTE | 2018-04-30 08:40 | PDOC CONSULTATION ---
Consultation Consult Date: 04/30/18 Attending physician:: SHEILA GOULD Consult reason:: Sickle cell crisis History of Present Illness Admission Date/PCP: 04/30/18 06:17 Patient complains of: Severe joint pain c/w ss crisis History of Present Illness: MARISA GARBER is a 37 year old male with known h/o sickle cell disease with crisis, he has been having pain for several days now, no fevers no chills, no other URI type symptoms. He is currently on methadone and oxycodone as his maintenance pain medications. He has long-standing history of sickle cell disease, we primarily follow him when he is admitted at [facility], he follows with an outpatient german professor in [place] or [place]. He currently is in fairly severe pain now, and his current pain regimen does not seem to be controlling his pain. Hemoglobin is 9.8 and stable. Past Medical History Cardiac Medical History: Denies: Atrial Fibrillation, Congestive Heart Failure, Coronary Artery Disease Pulmonary Medical History: Denies: Bronchitis, Tuberculosis EENT Medical History: Reports: None Neurological Medical History: Reports: Seizures Denies: Ischemic CVA, Migraine Endocrine Medical History: Denies: Diabetes Mellitus Type 1, Diabetes Mellitus Type 2, Obesity Renal/ Medical History: Denies: Chronic Kidney Disease, Nephrolithiasis Malignancy Medical History: Reports: None GI Medical History: Denies: Cirrhosis, Hepatitis Musculoskeltal Medical History: Denies: Arthritis, Gout Skin Medical History: Denies: Eczema, Psoriasis Psychiatric Medical History: Denies: Alcohol Dependency, Depression, Substance Abuse, Tobacco Dependency Traumatic Medical History: Reports: None Hematology: Reports: Anemia, Sickle Cell Disease Denies: Hemophilia Infectious Medical History: Reports: None Past Surgical History Past Surgical History: Reports: Appendectomy, Vascular Surgery - L port placement, Other - Port placement Social History Information Source: Patient Smoking Status: Never Smoker Frequency of Alcohol Use: None Hx Recreational Drug Use: No Drugs: None, Methadone Hx Prescription Drug Abuse: No - Advance Directive Resuscitation Status: Full Code Family History Family History: Other - Sickle cell disease Parental Family History Reviewed: Yes Children Family History Reviewed: Yes Sibling(s) Family History Reviewed.: Yes Medication/Allergy Home Medications: Methadone HCl [Dolophine HCl] 5 mg PO BID 10/11/16 Oxycodone HCl [Oxycodone HCl 10 MG Tablet] 10 mg PO Q8HP PRN 04/05/17 Baclofen [Baclofen 10 mg Tablet] 10 mg PO DAILY PRN 03/22/18 Hydroxyurea 500 mg PO DAILY 03/22/18 Docusate Sodium [Colace 100 mg Capsule] 100 mg PO DAILY 04/22/18 Folic Acid [Folvite 1 mg Tablet] 1 mg PO DAILY 04/22/18 Allergies/Adverse Reactions: famotidine [From Pepcid] Allergy (Severe, Verified 04/18/18 04:48) Anaphylaxis ketorolac tromethamine [From Toradol] Allergy (Severe, Verified 04/18/18 04:48) levofloxacin [From Levaquin] Allergy (Severe, Verified 04/18/18 04:48) meperidine HCl [From Demerol] Allergy (Severe, Verified 04/18/18 04:48) morphine [Morphine] Allergy (Severe, Verified 04/18/18 04:48) tramadol HCl [From Ultram] Allergy (Severe, Verified 04/18/18 04:48) amoxicillin [Amoxicillin] Allergy (Verified 04/18/18 04:48) fentanyl [Fentanyl] Allergy (Verified 04/18/18 04:48) latex [Latex] Allergy (Verified 04/18/18 04:48) ondansetron HCl [From Zofran] Allergy (Verified 04/18/18 04:48) Review of Systems Constitutional: PRESENT: anorexia, fatigue Cardiovascular: PRESENT: chest pain, dyspnea on exertion Gastrointestinal: ABSENT: abdominal pain, constipation, diarrhea, hematemesis, hematochezia, nausea, vomiting Musculoskeletal: PRESENT: back pain, other - Severe joint pains Neurological: PRESENT: weakness Physical Exam Vital Signs: Temp Pulse Resp BP Pulse Ox 98.2 F 73 18 132/84 H 100 04/30/18 06:46 04/30/18 06:46 04/30/18 06:46 04/30/18 06:46 04/30/18 06:46 Intake & Output 04/29/18 04/30/18 05/01/18 06:59 06:59 06:59 Weight 81.647 kg General appearance: PRESENT: severe distress Eye exam: PRESENT: conjunctiva pink, EOMI, PERRLA. ABSENT: scleral icterus Mouth exam: PRESENT: moist, tongue midline Respiratory exam: PRESENT: clear to auscultation anastasiya. ABSENT: rales, rhonchi, wheezes GI/Abdominal exam: PRESENT: normal bowel sounds, soft. ABSENT: distended, guarding, mass, organolmegaly, rebound, tenderness Rectal exam: PRESENT: deferred Neurological exam: PRESENT: alert Results Laboratory Results: 04/30/18 02:54 04/30/18 02:54 04/30/18 04/30/18 02:54 02:54 WBC 7.0 RBC 2.68 L Hgb 9.7 L Hct 27.5 L MCV 103 H MCH 36.2 H MCHC 35.3 RDW 18.1 H Plt Count 351 Seg Neutrophils % Not Reportable Lymphocytes % Not Reportable Monocytes % Not Reportable Eosinophils % Not Reportable Basophils % Not Reportable Absolute Neutrophils Not Reportable Absolute Lymphocytes Not Reportable Absolute Monocytes Not Reportable Absolute Eosinophils Not Reportable Absolute Basophils Not Reportable Retic Count (auto) 8.03 H Absolute Retic 0.215 H Sodium 142.7 Potassium 3.6 Chloride 108 H Carbon Dioxide 27 Anion Gap 8 BUN 9 Creatinine 0.59 Est GFR ( Amer) > 60 Est GFR (Non-Af Amer) > 60 Glucose 86 Calcium 8.6 Total Bilirubin 2.1 H AST 36 ALT 22 Alkaline Phosphatase 74 Total Protein 7.7 Albumin 4.1 Assessment & Plan - Diagnosis (1) Sickle cell crisis Is this a current diagnosis for this admission?: Yes Plan: Sickle cell disease with crisis, change Dilaudid to 4 mg every 2 hours as needed pain, first dose now, added methadone 5 mg twice daily which is his home dose., K pad for comfort. Continue with aggressive hydration. Continue with other measures. (2) Sickle cell anemia Qualifiers: Sickle-cell associated disorders: with unspecified crisis Qualified Code(s): D57.00 - Hb-SS disease with crisis, unspecified; D57.0 - Hb-SS disease with crisis Is this a current diagnosis for this admission?: Yes Plan: Sickle cell anemia, hemoglobin stable, hold on transfusion unless hemoglobin get s under 7. - Time Time Spent: Greater than 70 Minutes
[2018-04-30] MEDS ORDERED: HYDROMORPHONE HCL INJ/PF 2 MG/ML AMPULE ONE (09:13)
[2018-04-30] MEDS: HYDROMORPHONE HCL INJ/PF 2 MG/ML AMPULE IV PRN ×6 (09:19→22:48)
[2018-04-30] MEDS ORDERED: HYDROXYUREA 500 MG CAPSULE PO SCH (10:00)
[2018-04-30] MEDS: FONDAPARINUX SODIUM INJ 2.5 MG/0.5 ML DISP.SYRIN SUBCUT SCH (12:05)
[2018-04-30] MEDS: FOLIC ACID 1 MG TABLET PO SCH (12:06)
[2018-04-30] MEDS: DOCUSATE SODIUM 100 MG CAPSULE PO SCH ×2 (12:07→18:24)
[2018-04-30] MEDS: METHADONE HCL 10 MG TABLET PO SCH ×2 (12:07→22:48)
[2018-04-30] MEDS: DIPHENHYDRAMINE HCL 50 MG/ML VIAL IV PRN ×3 (12:26→22:48)
--- NOTE | 2018-04-30 13:40 | RADIOLOGY REPORT (SQ) ---
EXAM DESCRIPTION: CHEST SINGLE VIEW COMPLETED DATE/TIME: 04/30/2018 1:29 pm REASON FOR STUDY: shortness of breath COMPARISON: 04/22/2018 EXAM PARAMETERS: NUMBER OF VIEWS: One view. TECHNIQUE: Single frontal radiographic view of the chest acquired. RADIATION DOSE: NA LIMITATIONS: None. FINDINGS: LUNGS AND PLEURA: Lungs demonstrate stable chronic changes at the bilateral lung bases. N o new airspace disease. No pleural effusion or pneumothorax. MEDIASTINUM AND HILAR STRUCTURES: Stable. HEART AND VASCULAR STRUCTURES: Enlarged cardiac silhouette, stable. BONES: No acute osseous abnormality. HARDWARE: Left internal jugular base port with catheter tip at SVC. Unchanged linear radiodensity ov erlying left lateral 2nd rib. OTHER: No other significant finding. IMPRESSION: Stable enlarged cardiac silhouette and chronic bibasilar interstitial changes without de finite superimposed process. TECHNICAL DOCUMENTATION: JOB ID: [id number] [employer]- All Rights Reserved Reading location - IP/workstation name: [email or web address]
[2018-04-30] MEDS ORDERED: HYDROMORPHONE HCL INJ/PF 2 MG/ML AMPULE IV SCH (16:00)
[2018-04-30] MEDS: NORMAL SALINE 1000 ML 1,000 ML IV PRN ×2 (18:37→22:47)
[2018-05-01] MEDS: HYDROMORPHONE HCL INJ/PF 2 MG/ML AMPULE IV PRN ×10 (00:52→22:42)
[2018-05-01] MEDS: DIPHENHYDRAMINE HCL 50 MG/ML VIAL IV PRN ×5 (02:51→22:43)
[2018-05-01 06:35] LABS: HEMATOCRIT 25.7 % (37.9-51.0); MEAN CORPUSCULAR HEMOGLOBIN 36.1 pg (27.0-33.4); MEAN CORPUSCULAR HGB CONC 35.1 g/dL (32.0-36.0); MEAN CORPUSCULAR VOLUME 103 fl (80-97); PLATELET COUNT 345 10^3/uL (150-450); RED BLOOD COUNT 2.51 10^6/uL (4.35-5.55); RED CELL DISTRIBUTION WIDTH 18.1 % (11.5-14.0)
[2018-05-01] MEDS: NORMAL SALINE 1000 ML 1,000 ML IV PRN ×3 (06:43→14:56)
[2018-05-01 06:52] LABS: ANION GAP 7 (5-19); BLOOD UREA NITROGEN 6 mg/dL (7-20); CALCIUM 8.4 mg/dL (8.4-10.2); CARBON DIOXIDE 28 mmol/L (22-30); CHLORIDE 107 mmol/L (98-107); GLUCOSE 99 mg/dL (75-110); POTASSIUM 4.1 mmol/L (3.6-5.0)
[2018-05-01] MEDS: DOCUSATE SODIUM 100 MG CAPSULE PO SCH ×2 (10:24→17:45)
[2018-05-01] MEDS: METHADONE HCL 10 MG TABLET PO SCH ×2 (10:24→22:43)
[2018-05-01] MEDS: FOLIC ACID 1 MG TABLET PO SCH (10:25)
--- NOTE | 2018-05-01 10:58 | PDOC PROGRESS REPORT ---
Subjective Progress Note for:: 05/01/18 Subjective:: Patient states that he is trying not to take as much pain medication. His pain is better overall, but becomes much worse with any movement. He is wearing his oxygen and trying to drink plenty of fluids. ROS: He denies any nausea or itching. Reason For Visit: SICKLE CELL CRISIS Physical Exam Vital Signs: Temp Pulse Resp BP Pulse Ox 98.2 F 70 18 126/71 H 97 05/01/18 08:00 05/01/18 08:00 05/01/18 08:00 05/01/18 08:00 05/01/18 08:00 Intake & Output 04/30/18 05/01/18 05/02/18 06:59 06:59 06:59 Intake Total 3474 933 Balance 3474 933 Weight 81.647 kg 81.6 kg General appearance: PRESENT: no acute distress, well-developed, well-nourished Exam: 37 year old male. Head exam: PRESENT: normocephalic Respiratory exam: PRESENT: unlabored Neurological exam: PRESENT: alert, awake Psychiatric exam: PRESENT: appropriate affect Focused psych exam: ABSENT: psychomotor agitation, restlessness Skin exam: PRESENT: normal color Results Laboratory Results: 05/01/18 06:30 05/01/18 06:30 05/01/18 05/01/18 06:30 06:30 WBC 5.0 RBC 2.51 L Hgb 9.0 L Hct 25.7 L MCV 103 H MCH 36.1 H MCHC 35.1 RDW 18.1 H Plt Count 345 Sodium 142.0 Potassium 4.1 Chloride 107 Carbon Dioxide 28 Anion Gap 7 BUN 6 L Creatinine 0.67 Est GFR ( Amer) > 60 Est GFR (Non-Af Amer) > 60 Glucose 99 Calcium 8.4 Magnesium 1.8 Impressions: Chest X-Ray 04/30/18 00:00 IMPRESSION: Stable enlarged cardiac silhouette and chronic bibasilar interstitial changes without definite superimposed process. Assessment & Plan - Diagnosis (1) Sickle cell crisis Is this a current diagnosis for this admission?: Yes Plan: He is stable overall. Will continue narcotics without changes today. Continue IV fluids, O2, and supportive measures. (2) DVT prophylaxis Is this a current diagnosis for this admission?: Yes Plan: On arixtra. Continue. (3) Joint pain Qualifiers: Joint pain location: unspecified Qualified Code(s): M25.50 - Pain in unspecified joint Is this a current diagnosis for this admission?: Yes Plan: As per above.
[2018-05-01] MEDS: FONDAPARINUX SODIUM INJ 2.5 MG/0.5 ML DISP.SYRIN SUBCUT SCH (12:18)
--- NOTE | 2018-05-01 12:24 | PDOC PROGRESS REPORT ---
Subjective Progress Note for:: 05/01/18 Subjective:: 05/01/2018 37-year-old male admitted with sickle cell crisis. Events in the last 24 hours. Oncology is following the patient. Reason For Visit: SICKLE CELL CRISIS Physical Exam Vital Signs: Temp Pulse Resp BP Pulse Ox 98.4 F 71 14 149/91 H 100 05/01/18 11:41 05/01/18 11:41 05/01/18 11:41 05/01/18 11:41 05/01/18 11:41 Intake & Output 04/30/18 05/01/18 05/02/18 06:59 06:59 06:59 Intake Total 3474 933 Balance 3474 933 Weight 81.647 kg 81.6 kg General appearance: PRESENT: mild distress Head exam: PRESENT: atraumatic Eye exam: PRESENT: PERRLA Mouth exam: PRESENT: moist Neck exam: ABSENT: carotid bruit, JVD, lymphadenopathy, thyromegaly Respiratory exam: PRESENT: clear to auscultation anastasiya. ABSENT: rales, rhonchi, wheezes Pulses: PRESENT: normal dorsalis pedis pul GI/Abdominal exam: PRESENT: normal bowel sounds, soft. ABSENT: distended, guarding, mass, organolmegaly, rebound, tenderness Extremities exam: PRESENT: full ROM. ABSENT: calf tenderness, clubbing, pedal edema Neurological exam: PRESENT: alert, awake, oriented to person, oriented to place, oriented to time, oriented to situation, CN II-XII grossly intact. ABSENT: motor sensory deficit Psychiatric exam: PRESENT: appropriate affect, normal mood. ABSENT: homicidal ideation, suicidal ideation Results Laboratory Results: 05/01/18 06:30 05/01/18 06:30 05/01/18 05/01/18 06:30 06:30 WBC 5.0 RBC 2.51 L Hgb 9.0 L Hct 25.7 L MCV 103 H MCH 36.1 H MCHC 35.1 RDW 18.1 H Plt Count 345 Sodium 142.0 Potassium 4.1 Chloride 107 Carbon Dioxide 28 Anion Gap 7 BUN 6 L Creatinine 0.67 Est GFR ( Amer) > 60 Est GFR (Non-Af Amer) > 60 Glucose 99 Calcium 8.4 Magnesium 1.8 Impressions: Chest X-Ray 04/30/18 00:00 IMPRESSION: Stable enlarged cardiac silhouette and chronic bibasilar interstitial changes without definite superimposed process. Assessment & Plan - Diagnosis (1) Sickle cell crisis Is this a current diagnosis for this admission?: Yes Plan: Patient will be admitted and receive IV fluids and high-volume, 250 mL/h. Additionally he will be treated with Dilaudid 2 mg IV every hour as needed pain Phenergan 25 mg IV every 4 hours as needed nausea vomiting and Benadryl 25 mg IV every 4 hours as needed itching. He will be started on high-dose hydroxyurea [address] Medellin will be consulted. 05/01/2018-plan for today is to give the fluids normal saline at 75 cc/h. To continue the pain management as per oncology recommendations. (2) Sickle cell anemia Is this a current diagnosis for this admission?: Yes Plan: 05/01/2018 patient has a sickle cell anemia his hemoglobin is stable around 9.0. Oncology is following the patient. (3) Joint pain Qualifiers: Joint pain location: unspecified Qualified Code(s): M25.50 - Pain in unspecified joint Is this a current diagnosis for this admission?: Yes Plan: 05/01/2018-patient is on hydromorphone 3 mg every 2 hours. Plan is to continue the present pain management as per oncology recommendations. - Time Time Spent with patient: 15-24 minutes Medications reviewed and adjusted accordingly: Yes Anticipated discharge: Home
[2018-05-01] MEDS: HYDROXYUREA 500 MG CAPSULE PO SCH (17:59)
[2018-05-01] MEDS: PSEUDOEPHEDRINE HCL 30 MG TABLET PO SCH (22:43)
[2018-05-02] MEDS: ACETAMINOPHEN 325 MG TABLET PO PRN (00:42)
[2018-05-02] MEDS: HYDROMORPHONE HCL INJ/PF 2 MG/ML AMPULE IV PRN ×10 (00:43→23:36)
[2018-05-02] MEDS: DIPHENHYDRAMINE HCL 50 MG/ML VIAL IV PRN ×5 (03:21→23:37)
[2018-05-02 06:23] LABS: HEMATOCRIT 25.1 % (37.9-51.0); HEMOGLOBIN 8.9 g/dL (13.5-17.0); MEAN CORPUSCULAR HEMOGLOBIN 35.8 pg (27.0-33.4); MEAN CORPUSCULAR HGB CONC 35.4 g/dL (32.0-36.0); MEAN CORPUSCULAR VOLUME 101 fl (80-97); PLATELET COUNT 364 10^3/uL (150-450); RED BLOOD COUNT 2.48 10^6/uL (4.35-5.55); RED CELL DISTRIBUTION WIDTH 18.4 % (11.5-14.0); WHITE BLOOD COUNT 5.9 10^3/uL (4.0-10.5)
[2018-05-02 06:46] LABS: ANION GAP 6 (5-19); BLOOD UREA NITROGEN 5 mg/dL (7-20); CALCIUM 8.4 mg/dL (8.4-10.2); CARBON DIOXIDE 30 mmol/L (22-30); CHLORIDE 105 mmol/L (98-107); GLUCOSE 112 mg/dL (75-110); POTASSIUM 3.7 mmol/L (3.6-5.0); SODIUM 140.7 mmol/L (137-145)
[2018-05-02] MEDS: NORMAL SALINE 1000 ML 1,000 ML IV PRN ×2 (08:05→21:04)
--- NOTE | 2018-05-02 08:38 | PDOC PROGRESS REPORT ---
Subjective Progress Note for:: 05/02/18 Subjective:: Patient with continued pain, I am planning on increasing his pain medication today to 3.5 mg IV every 2 hours. Added bowel regimen, patient has not had a BM in 48 hours. Reason For Visit: SICKLE CELL CRISIS Physical Exam Vital Signs: Temp Pulse Resp BP Pulse Ox 98.0 F 105 H 14 119/84 96 05/02/18 03:46 05/02/18 03:46 05/02/18 03:46 05/02/18 03:46 05/02/18 03:46 Intake & Output 05/01/18 05/02/18 05/03/18 06:59 06:59 06:59 Intake Total 3474 4395 Output Total 2800 Balance 3474 1595 Weight 81.6 kg 87.7 kg General appearance: PRESENT: no acute distress, well-developed, well-nourished Head exam: PRESENT: atraumatic, normocephalic Eye exam: PRESENT: conjunctiva pink, EOMI, PERRLA. ABSENT: scleral icterus Ear exam: PRESENT: normal external ear exam Mouth exam: PRESENT: moist, tongue midline Neck exam: ABSENT: carotid bruit, JVD, lymphadenopathy, thyromegaly Respiratory exam: PRESENT: clear to auscultation anastasiya. ABSENT: rales, rhonchi, wheezes Cardiovascular exam: PRESENT: RRR. ABSENT: diastolic murmur, rubs, systolic murmur Pulses: PRESENT: normal dorsalis pedis pul Vascular exam: PRESENT: normal capillary refill GI/Abdominal exam: PRESENT: normal bowel sounds, soft. ABSENT: distended, guarding, mass, organolmegaly, rebound, tenderness Rectal exam: PRESENT: deferred Extremities exam: PRESENT: full ROM. ABSENT: calf tenderness, clubbing, pedal edema Neurological exam: PRESENT: alert, awake, oriented to person, oriented to place, oriented to time, oriented to situation, CN II-XII grossly intact. ABSENT: motor sensory deficit Psychiatric exam: PRESENT: appropriate affect, normal mood. ABSENT: homicidal ideation, suicidal ideation Skin exam: PRESENT: dry, intact, warm. ABSENT: cyanosis, rash Results Laboratory Results: 05/02/18 05:30 05/02/18 05:30 05/02/18 05/02/18 05:30 05:30 WBC 5.9 RBC 2.48 L Hgb 8.9 L Hct 25.1 L MCV 101 H MCH 35.8 H MCHC 35.4 RDW 18.4 H Plt Count 364 Sodium 140.7 Potassium 3.7 Chloride 105 Carbon Dioxide 30 Anion Gap 6 BUN 5 L Creatinine 0.54 Est GFR ( Amer) > 60 Est GFR (Non-Af Amer) > 60 Glucose 112 H Calcium 8.4 Impressions: Chest X-Ray 04/30/18 00:00 IMPRESSION: Stable enlarged cardiac silhouette and chronic bibasilar interstitial changes without definite superimposed process. Assessment & Plan - Diagnosis (1) Sickle cell crisis Is this a current diagnosis for this admission?: Yes Plan: Improving but still having quite a bit of pain, increasing pain medication today continue with other supportive measures. (2) Sickle cell anemia Qualifiers: Sickle-cell associated disorders: with unspecified crisis Qualified Code(s): D57.00 - Hb-SS disease with crisis, unspecified; D57.0 - Hb-SS disease with crisis Is this a current diagnosis for this admission?: Yes Plan: Hemoglobin stable, hold on transfusion unless hemoglobin gets under 7. - Time Time Spent with patient: 35 or more minutes - Inpatient Certification Based on my medical assessment, after consideration of the patient's comorbidities, presenting symptoms, or acuity I expect that the services needed warrant INPATIENT care.: Yes I certify that my determination is in accordance with my understanding of Medicare's requirements for reasonable and necessary INPATIENT services [42 CFR 412.3e].: Yes Medical Necessity: Need for Pain Control
[2018-05-02] MEDS ORDERED: SENNOSIDES/DOCUSATE 8.6-50 MG 1 EACH TABLET PO PRN (09:12)
[2018-05-02] MEDS ORDERED: POLYETHYLENE GLYCOL 3350 POWDER 17 GM/1 PACKET PO PRN (09:12)
[2018-05-02] MEDS: FONDAPARINUX SODIUM INJ 2.5 MG/0.5 ML DISP.SYRIN SUBCUT SCH (10:34)
[2018-05-02] MEDS: METHADONE HCL 10 MG TABLET PO SCH ×2 (10:35→21:06)
[2018-05-02] MEDS: DOCUSATE SODIUM 100 MG CAPSULE PO SCH ×2 (10:35→18:46)
[2018-05-02] MEDS: FOLIC ACID 1 MG TABLET PO SCH (10:35)
[2018-05-02] MEDS: HYDROXYUREA 500 MG CAPSULE PO SCH (10:35)
--- NOTE | 2018-05-02 11:59 | PDOC PROGRESS REPORT ---
Subjective Progress Note for:: 05/02/18 Subjective:: 05/01/2018 37-year-old male admitted with sickle cell crisis. Events in the last 24 hours. Oncology is following the patient. 05/02/2018-no acute events in the last 24 hours. Afebrile. Admitted for sickle cell crisis. Reason For Visit: SICKLE CELL CRISIS Physical Exam Vital Signs: Temp Pulse Resp BP Pulse Ox 97.8 F 65 12 127/86 H 100 05/02/18 08:41 05/02/18 08:41 05/02/18 08:41 05/02/18 08:41 05/02/18 08:41 Intake & Output 05/01/18 05/02/18 05/03/18 06:59 06:59 06:59 Intake Total 3474 4395 Output Total 2800 Balance 3474 1595 Weight 81.6 kg 87.7 kg General appearance: PRESENT: mild distress Head exam: PRESENT: atraumatic Eye exam: PRESENT: PERRLA Mouth exam: PRESENT: moist, tongue midline Respiratory exam: PRESENT: clear to auscultation anastasiya. ABSENT: rales, rhonchi, wheezes Cardiovascular exam: PRESENT: RRR. ABSENT: diastolic murmur, rubs, systolic murmur Pulses: PRESENT: normal dorsalis pedis pul GI/Abdominal exam: PRESENT: normal bowel sounds, soft. ABSENT: distended, guarding, mass, organolmegaly, rebound, tenderness Extremities exam: PRESENT: full ROM. ABSENT: calf tenderness, clubbing, pedal edema Neurological exam: PRESENT: alert, awake, oriented to person, oriented to place, oriented to time, oriented to situation, CN II-XII grossly intact. ABSENT: motor sensory deficit Psychiatric exam: PRESENT: appropriate affect, normal mood. ABSENT: homicidal ideation, suicidal ideation Results Laboratory Results: 05/02/18 05:30 05/02/18 05:30 05/02/18 05/02/18 05:30 05:30 WBC 5.9 RBC 2.48 L Hgb 8.9 L Hct 25.1 L MCV 101 H MCH 35.8 H MCHC 35.4 RDW 18.4 H Plt Count 364 Sodium 140.7 Potassium 3.7 Chloride 105 Carbon Dioxide 30 Anion Gap 6 BUN 5 L Creatinine 0.54 Est GFR ( Amer) > 60 Est GFR (Non-Af Amer) > 60 Glucose 112 H Calcium 8.4 Impressions: Chest X-Ray 04/30/18 00:00 IMPRESSION: Stable enlarged cardiac silhouette and chronic bibasilar interstitial changes without definite superimposed process. Assessment & Plan - Diagnosis (1) Sickle cell crisis Is this a current diagnosis for this admission?: Yes Plan: Patient will be admitted and receive IV fluids and high-volume, 250 mL/h. Additionally he will be treated with Dilaudid 2 mg IV every hour as needed pain Phenergan 25 mg IV every 4 hours as needed nausea vomiting and Benadryl 25 mg IV every 4 hours as needed itching. He will be started on high-dose hydroxyurea [address] Medellin will be consulted. 05/01/2018-plan for today is to give the fluids normal saline at 75 cc/h. To continue the pain management as per oncology recommendations. 05/02/2018-patient is getting her pain medications on regular basis. patient's pain issues are managed by Dr. Medellin. (2) Sickle cell anemia Is this a current diagnosis for this admission?: Yes Plan: 05/01/2018 patient has a sickle cell anemia his hemoglobin is stable around 9.0. Oncology is following the patient. 05/02/2018-patient has history of sickle cell anemia and his hemoglobin is 0.9 and reticulocyte count is around 8. He is presently on Dilaudid 3.5 mg IV every 2 hours as needed and methadone 5 mg p.o. every 12 hours. (3) Joint pain Qualifiers: Joint pain location: unspecified Qualified Code(s): M25.50 - Pain in unspecified joint Is this a current diagnosis for this admission?: Yes Plan: 05/01/2018-patient is on hydromorphone 3 mg every 2 hours. Plan is to continue the present pain management as per oncology recommendations. 05/02/2018-plan is to continue hydromorphone 3.5 mg IV every 2 hours as needed/methadone 5 mg p.o. every [address] Medellin's recommendations. - Time Time Spent with patient: 15-24 minutes Medications reviewed and adjusted accordingly: Yes Anticipated discharge: Home
[2018-05-02] MEDS: PSEUDOEPHEDRINE HCL 30 MG TABLET PO SCH (21:13)
[2018-05-03] MEDS: HYDROMORPHONE HCL INJ/PF 2 MG/ML AMPULE IV PRN ×10 (01:48→22:11)
[2018-05-03] MEDS: DIPHENHYDRAMINE HCL 50 MG/ML VIAL IV PRN ×5 (04:24→22:13)
[2018-05-03 05:15] LABS: HEMATOCRIT 25.6 % (37.9-51.0); HEMOGLOBIN 8.9 g/dL (13.5-17.0); MEAN CORPUSCULAR HEMOGLOBIN 35.3 pg (27.0-33.4); MEAN CORPUSCULAR HGB CONC 34.8 g/dL (32.0-36.0); MEAN CORPUSCULAR VOLUME 101 fl (80-97); PLATELET COUNT 421 10^3/uL (150-450); RED BLOOD COUNT 2.52 10^6/uL (4.35-5.55); WHITE BLOOD COUNT 4.4 10^3/uL (4.0-10.5)
[2018-05-03 05:38] LABS: ANION GAP 6 (5-19); BLOOD UREA NITROGEN 5 mg/dL (7-20); CARBON DIOXIDE 28 mmol/L (22-30); CHLORIDE 107 mmol/L (98-107); GLUCOSE 103 mg/dL (75-110); POTASSIUM 3.4 mmol/L (3.6-5.0); SODIUM 141.3 mmol/L (137-145)
[2018-05-03] MEDS: ACETAMINOPHEN 325 MG TABLET PO PRN (06:46)
[2018-05-03] MEDS: FONDAPARINUX SODIUM INJ 2.5 MG/0.5 ML DISP.SYRIN SUBCUT SCH ×2 (09:14→10:46)
[2018-05-03] MEDS: METHADONE HCL 10 MG TABLET PO SCH ×2 (10:44→22:13)
[2018-05-03] MEDS: DOCUSATE SODIUM 100 MG CAPSULE PO SCH ×2 (10:45→18:01)
[2018-05-03] MEDS: HYDROXYUREA 500 MG CAPSULE PO SCH (10:45)
[2018-05-03] MEDS: FOLIC ACID 1 MG TABLET PO SCH (10:45)
--- NOTE | 2018-05-03 11:07 | PDOC PROGRESS REPORT ---
Subjective Progress Note for:: 05/03/18 Subjective:: 05/01/2018 37-year-old male admitted with sickle cell crisis. Events in the last 24 hours. Oncology is following the patient. 05/02/2018-no acute events in the last 24 hours. Afebrile. Admitted for sickle cell crisis. 05/03/2018 patient is doing well no acute events in the last 24 hours. Afebrile. Denies any complaints. Reason For Visit: SICKLE CELL CRISIS Physical Exam Vital Signs: Temp Pulse Resp BP Pulse Ox 98.3 F 74 16 136/89 H 100 05/03/18 03:25 05/03/18 07:00 05/03/18 03:25 05/03/18 03:25 05/03/18 03:25 Intake & Output 05/02/18 05/03/18 05/04/18 06:59 06:59 06:59 Intake Total 4395 2490 Output Total 2800 2900 Balance 1595 -410 Weight 87.7 kg 84.9 kg General appearance: PRESENT: no acute distress Head exam: PRESENT: atraumatic Eye exam: PRESENT: PERRLA Mouth exam: PRESENT: moist Neck exam: ABSENT: carotid bruit, JVD, lymphadenopathy, thyromegaly Respiratory exam: PRESENT: clear to auscultation anastasiya. ABSENT: rales, rhonchi, wheezes Cardiovascular exam: PRESENT: RRR. ABSENT: diastolic murmur, rubs, systolic murmur GI/Abdominal exam: PRESENT: normal bowel sounds, soft. ABSENT: distended, guarding, mass, organolmegaly, rebound, tenderness Extremities exam: PRESENT: full ROM. ABSENT: calf tenderness, clubbing, pedal edema Neurological exam: PRESENT: alert, awake, oriented to person, oriented to place, oriented to time, oriented to situation, CN II-XII grossly intact. ABSENT: motor sensory deficit Psychiatric exam: PRESENT: appropriate affect, normal mood. ABSENT: homicidal ideation, suicidal ideation Results Laboratory Results: 05/03/18 04:20 05/03/18 04:20 05/03/18 05/03/18 04:20 04:20 WBC 4.4 RBC 2.52 L Hgb 8.9 L Hct 25.6 L MCV 101 H MCH 35.3 H MCHC 34.8 RDW 18.0 H Plt Count 421 Sodium 141.3 Potassium 3.4 L Chloride 107 Carbon Dioxide 28 Anion Gap 6 BUN 5 L Creatinine 0.55 Est GFR ( Amer) > 60 Est GFR (Non-Af Amer) > 60 Glucose 103 Calcium 8.0 L Impressions: Chest X-Ray 04/30/18 00:00 IMPRESSION: Stable enlarged cardiac silhouette and chronic bibasilar interstitial changes without definite superimposed process. Assessment & Plan - Diagnosis (1) Sickle cell crisis Is this a current diagnosis for this admission?: Yes Plan: Patient will be admitted and receive IV fluids and high-volume, 250 mL/h. Additionally he will be treated with Dilaudid 2 mg IV every hour as needed pain Phenergan 25 mg IV every 4 hours as needed nausea vomiting and Benadryl 25 mg IV every 4 hours as needed itching. He will be started on high-dose hydroxyurea [address] Medellin will be consulted. 05/01/2018-plan for today is to give the fluids normal saline at 75 cc/h. To continue the pain management as per oncology recommendations. 05/02/2018-patient is getting her pain medications on regular basis. patient's pain issues are managed by Dr. Medellin. 05/03/2018-patient denies any complaints today he said his pain is under control today , going to continue follow the hematology recommendations about the pain management. (2) Sickle cell anemia Is this a current diagnosis for this admission?: Yes Plan: 05/01/2018 patient has a sickle cell anemia his hemoglobin is stable around 9.0. Oncology is following the patient. 05/02/2018-patient has history of sickle cell anemia and his hemoglobin is 9.0 and reticulocyte count is around 8. He is presently on Dilaudid 3.5 mg IV every 2 hours as needed and methadone 5 mg p.o. every 12 hours. 05/03/2018-patient's hemoglobin is 8.9 stable patient looks well-hydrated. Plan is to continue the present management. (3) Joint pain Qualifiers: Joint pain location: unspecified Qualified Code(s): M25.50 - Pain in unspecified joint Is this a current diagnosis for this admission?: Yes - Time Time Spent with patient: Less than 15 minutes Medications reviewed and adjusted accordingly: Yes Anticipated discharge: Home
--- NOTE | 2018-05-03 15:32 | PDOC PROGRESS REPORT ---
Subjective Progress Note for:: 05/03/18 Subjective:: No new complaints today. Pain still severe, but slowly improving. ROS: no itching. No nausea. Reason For Visit: SICKLE CELL CRISIS Physical Exam Vital Signs: Temp Pulse Resp BP Pulse Ox 98.3 F 74 16 136/89 H 100 05/03/18 03:25 05/03/18 14:00 05/03/18 03:25 05/03/18 03:25 05/03/18 03:25 Intake & Output 05/02/18 05/03/18 05/04/18 06:59 06:59 06:59 Intake Total 4395 2490 1830 Output Total 2800 2900 Balance 1595 -410 1830 Weight 87.7 kg 84.9 kg General appearance: PRESENT: well-developed, well-nourished Head exam: PRESENT: normocephalic Respiratory exam: PRESENT: unlabored GI/Abdominal exam: PRESENT: soft, tenderness Extremities exam: ABSENT: pedal edema Musculoskeletal exam: PRESENT: tenderness Neurological exam: PRESENT: alert, awake Psychiatric exam: PRESENT: appropriate affect Skin exam: PRESENT: normal color Results Laboratory Results: 05/03/18 04:20 05/03/18 04:20 05/03/18 05/03/18 04:20 04:20 WBC 4.4 RBC 2.52 L Hgb 8.9 L Hct 25.6 L MCV 101 H MCH 35.3 H MCHC 34.8 RDW 18.0 H Plt Count 421 Sodium 141.3 Potassium 3.4 L Chloride 107 Carbon Dioxide 28 Anion Gap 6 BUN 5 L Creatinine 0.55 Est GFR ( Amer) > 60 Est GFR (Non-Af Amer) > 60 Glucose 103 Calcium 8.0 L Impressions: Chest X-Ray 04/30/18 00:00 IMPRESSION: Stable enlarged cardiac silhouette and chronic bibasilar interstitial changes without definite superimposed process. Assessment & Plan - Diagnosis (1) Sickle cell crisis Is this a current diagnosis for this admission?: Yes Plan: Continue NS at 150 cc/hour. He will continue to drink as much as possible with this. Continue O2 NC. (2) DVT prophylaxis Is this a current diagnosis for this admission?: Yes (3) Joint pain Qualifiers: Joint pain location: unspecified Qualified Code(s): M25.50 - Pain in unspecified joint Is this a current diagnosis for this admission?: Yes Plan: Continue pain medications without change today. - Plan Summary Plan Summary: Encouraged to walk in [place] if he is able.
[2018-05-03] MEDS: NORMAL SALINE 1000 ML 1,000 ML IV PRN (19:22)
[2018-05-03] MEDS: PSEUDOEPHEDRINE HCL 30 MG TABLET PO SCH (22:14)
[2018-05-04] MEDS: HYDROMORPHONE HCL INJ/PF 2 MG/ML AMPULE IV PRN ×11 (00:11→23:43)
[2018-05-04] MEDS: DIPHENHYDRAMINE HCL 50 MG/ML VIAL IV PRN ×5 (02:12→21:17)
[2018-05-04] MEDS: FOLIC ACID 1 MG TABLET PO SCH (09:45)
[2018-05-04] MEDS: METHADONE HCL 10 MG TABLET PO SCH ×2 (09:45→21:18)
[2018-05-04] MEDS: HYDROXYUREA 500 MG CAPSULE PO SCH (09:45)
[2018-05-04] MEDS: DOCUSATE SODIUM 100 MG CAPSULE PO SCH ×2 (09:46→17:10)
--- NOTE | 2018-05-04 10:20 | PDOC PROGRESS REPORT ---
Subjective Progress Note for:: 05/04/18 Subjective:: 05/01/2018 37-year-old male admitted with sickle cell crisis. Events in the last 24 hours. Oncology is following the patient. 05/02/2018-no acute events in the last 24 hours. Afebrile. Admitted for sickle cell crisis. 05/03/2018 patient is doing well no acute events in the last 24 hours. Afebrile. Denies any complaints. 2018-patient states he did not have a good sleep last night other than that he is doing well denies any problems other than a chronic pains. No acute events in the last 24 hours. Patient is afebrile. Reason For Visit: SICKLE CELL CRISIS Physical Exam Vital Signs: Temp Pulse Resp BP Pulse Ox 98.4 F 76 15 137/92 H 100 05/04/18 03:39 05/04/18 07:00 05/04/18 03:39 05/04/18 03:39 05/04/18 03:39 Intake & Output 05/03/18 05/04/18 05/05/18 06:59 06:59 06:59 Intake Total 2490 3066 Output Total 2900 2575 Balance -410 491 Weight 84.9 kg 86.1 kg General appearance: PRESENT: mild distress Head exam: PRESENT: atraumatic Eye exam: PRESENT: PERRLA Mouth exam: PRESENT: moist, tongue midline Neck exam: ABSENT: carotid bruit, JVD, lymphadenopathy, thyromegaly Respiratory exam: PRESENT: clear to auscultation anastasiya. ABSENT: rales, rhonchi, wheezes Cardiovascular exam: PRESENT: RRR. ABSENT: diastolic murmur, rubs, systolic murmur Pulses: PRESENT: normal dorsalis pedis pul GI/Abdominal exam: PRESENT: normal bowel sounds, soft. ABSENT: distended, guarding, mass, organolmegaly, rebound, tenderness Extremities exam: PRESENT: full ROM. ABSENT: calf tenderness, clubbing, pedal edema Neurological exam: PRESENT: alert, awake, oriented to person, oriented to place, oriented to time, oriented to situation, CN II-XII grossly intact. ABSENT: motor sensory deficit Psychiatric exam: PRESENT: appropriate affect, normal mood. ABSENT: homicidal ideation, suicidal ideation Results Laboratory Results: 05/03/18 04:20 05/03/18 04:20 Impressions: Chest X-Ray 04/30/18 00:00 IMPRESSION: Stable enlarged cardiac silhouette and chronic bibasilar in terstitial changes without definite superimposed process. Assessment & Plan - Diagnosis (1) Sickle cell crisis Is this a current diagnosis for this admission?: Yes Plan: Patient will be admitted and receive IV fluids and high-volume, 250 mL/h. Additionally he will be treated with Dilaudid 2 mg IV every hour as needed pain Phenergan 25 mg IV every 4 hours as needed nausea vomiting and Benadryl 25 mg IV every 4 hours as needed itching. He will be started on high-dose hydroxyurea [address] Medellin will be consulted. 05/01/2018-plan for today is to give the fluids normal saline at 75 cc/h. To continue the pain management as per oncology recommendations. 05/02/2018-patient is getting her pain medications on regular basis. patient's pain issues are managed by Dr. Medellin. 05/03/2018-patient denies any complaints today he said his pain is under control today , going to continue follow the hematology recommendations about the pain management. 05/04/2018-patient is admitted with sickle cell crisis patient is on IV fluids at 150 cc/h as per oncologist and pain management as per the oncology team. (2) Sickle cell anemia Is this a current diagnosis for this admission?: Yes Plan: 05/01/2018 patient has a sickle cell anemia his hemoglobin is stable around 9.0. Oncology is following the patient. 05/02/2018-patient has history of sickle cell anemia and his hemoglobin is 9.0 and reticulocyte count is around 8. He is presently on Dilaudid 3.5 mg IV every 2 hours as needed and methadone 5 mg p.o. every 12 hours. 05/03/2018-patient's hemoglobin is 8.9 stable patient looks well-hydrated. Plan is to continue the present management. 05/04/2018 patient's hemoglobin is stable around 9. He is presently on a Dilaudid 3.5 mg IV every 12 hours as needed and methadone 5 mg p.o. every 12 hours and also on IV fluids normal saline at 150 cc/h. (3) Joint pain Qualifiers: Joint pain location: unspecified Qualified Code(s): M25.50 - Pain in unspecified joint Is this a current diagnosis for this admission?: Yes - Time Time Spent with patient: 15-24 minutes Medications reviewed and adjusted accordingly: Yes Anticipated discharge: Home
[2018-05-04] MEDS: FONDAPARINUX SODIUM INJ 2.5 MG/0.5 ML DISP.SYRIN SUBCUT SCH (11:46)
[2018-05-04] MEDS: NORMAL SALINE 1000 ML 1,000 ML IV PRN (15:20)
[2018-05-04] MEDS: PSEUDOEPHEDRINE HCL 30 MG TABLET PO SCH (21:18)
[2018-05-05] MEDS: DIPHENHYDRAMINE HCL 50 MG/ML VIAL IV PRN ×4 (02:10→23:07)
[2018-05-05] MEDS: HYDROMORPHONE HCL INJ/PF 2 MG/ML AMPULE IV PRN ×7 (02:10→23:03)
[2018-05-05 07:14] LABS: ABSOLUTE BASOPHILS # (AUTO) 0.2 10^3/uL (0.0-0.2); ABSOLUTE EOSINOPHILS # (AUTO) 0.1 10^3/uL (0.0-0.6); ABSOLUTE LYMPHOCYTES (AUTO) 1.2 10^3/uL (0.5-4.7); ABSOLUTE NEUT (AUTO) 6.3 10^3/uL (1.7-8.2); EOSINOPHILS % (AUTO) 1.5 % (0-6); HEMOGLOBIN 9.4 g/dL (13.5-17.0); LYMPHOCYTES % (AUTO) 13.3 % (13-45); MEAN CORPUSCULAR HEMOGLOBIN 35.8 pg (27.0-33.4); MEAN CORPUSCULAR HGB CONC 36.1 g/dL (32.0-36.0); MEAN CORPUSCULAR VOLUME 99 fl (80-97); MONOCYTES % (AUTO) 11.1 % (3-13); PLATELET COUNT 451 10^3/uL (150-450); RED BLOOD COUNT 2.62 10^6/uL (4.35-5.55); RED CELL DISTRIBUTION WIDTH 19.2 % (11.5-14.0); SEGMENTED NEUTROPHILS % (AUTO) 72.1 % (42-78); TOTAL CELLS COUNTED % (AUTO) 100 %; WHITE BLOOD COUNT 8.7 10^3/uL (4.0-10.5)
--- NOTE | 2018-05-05 07:38 | PDOC PROGRESS REPORT ---
Subjective Progress Note for:: 05/05/18 Subjective:: Pt in considerable pain this am Reason For Visit: SICKLE CELL CRISIS Physical Exam Vital Signs: Temp Pulse Resp BP Pulse Ox 98.6 F 83 16 143/89 H 95 05/05/18 03:30 05/05/18 03:30 05/05/18 03:30 05/05/18 03:30 05/05/18 03:30 Intake & Output 05/04/18 05/05/18 05/06/18 06:59 06:59 06:59 Intake Total 3066 2474 Output Total 2575 3900 Balance 491 -1176 Weight 86.1 kg 86.1 kg General appearance: PRESENT: no acute distress, well-developed, well-nourished Head exam: PRESENT: atraumatic, normocephalic Eye exam: PRESENT: conjunctiva pink, EOMI, PERRLA. ABSENT: scleral icterus Ear exam: PRESENT: normal external ear exam Mouth exam: PRESENT: moist, tongue midline Neck exam: ABSENT: carotid bruit, JVD, lymphadenopathy, thyromegaly Respiratory exam: PRESENT: clear to auscultation anastasiya. ABSENT: rales, rhonchi, wheezes Cardiovascular exam: PRESENT: RRR. ABSENT: diastolic murmur, rubs, systolic murmur Pulses: PRESENT: normal dorsalis pedis pul Vascular exam: PRESENT: normal capillary refill GI/Abdominal exam: PRESENT: normal bowel sounds, soft. ABSENT: distended, guarding, mass, organolmegaly, rebound, tenderness Rectal exam: PRESENT: deferred Extremities exam: PRESENT: full ROM. ABSENT: calf tenderness, clubbing, pedal edema Neurological exam: PRESENT: alert, awake, oriented to person, oriented to place, oriented to time, oriented to situation, CN II-XII grossly intact. ABSENT: motor sensory deficit Psychiatric exam: PRESENT: appropriate affect, normal mood. ABSENT: homicidal ideation, suicidal ideation Skin exam: PRESENT: dry, intact, warm. ABSENT: cyanosis, rash Results Impressions: Chest X-Ray 04/30/18 00:00 IMPRESSION: Stable enlarged cardiac silhouette and chronic bibasilar interstitial changes without definite superimposed process. Assessment & Plan - Diagnosis (1) Sickle cell crisis Is this a current diagnosis for this admission?: Yes Plan: Continued, will inc dilaudid to 4mg IV q 2 hr prn pain, cont other supportive measures (2) Sickle cell anemia Qualifiers: Sickle-cell associated disorders: with unspecified crisis Qualified Code(s): D57.00 - Hb-SS disease with crisis, unspecified; D57.0 - Hb-SS disease with crisis Is this a current diagnosis for this admission?: Yes Plan: awaiting hb, transfuse if <7. Cont to monitor - Time Time Spent with patient: 35 or more minutes Within: within 72 hours Disposition: Still in full crisis, will need 24-48hrs inpatient - Inpatient Certification Based on my medical assessment, after consideration of the patient's comor bidities, presenting symptoms, or acuity I expect that the services needed warrant INPATIENT care.: Yes I certify that my determination is in accordance with my understanding of Medicare's requirements for reasonable and necessary INPATIENT services [42 CFR 412.3e].: Yes Medical Necessity: Need For IV Fluids, Need for Pain Control
[2018-05-05 07:44] LABS: ALANINE AMINOTRANSFERASE 28 U/L (21-72); ALBUMIN 4.1 g/dL (3.5-5.0); ALKALINE PHOSPHATASE 78 U/L (38-126); ANION GAP 8 (5-19); ANISOCYTOSIS 2+; ASPARTATE AMINO TRANSFERASE 38 U/L (17-59); BILIRUBIN,DIRECT 0.3 mg/dL (0.0-0.4); BILIRUBIN,TOTAL 1.9 mg/dL (0.2-1.3); BLOOD UREA NITROGEN 7 mg/dL (7-20); CALCIUM 8.8 mg/dL (8.4-10.2); CARBON DIOXIDE 31 mmol/L (22-30); CHLORIDE 105 mmol/L (98-107); GLUCOSE 107 mg/dL (75-110); HOWELL-JOLLY BODIES PRESENT; POIKILOCYTOSIS 2+; POLYCHROMASIA 1+; POTASSIUM 4.2 mmol/L (3.6-5.0); SCHISTOCYTES SLIGHT; SICKLE RED CELLS 2+; SODIUM 143.7 mmol/L (137-145); TARGET CELLS 2+; TOTAL PROTEIN 7.4 g/dL (6.3-8.2)
[2018-05-05 07:45] LABS: PLATELET COMMENT INCREASED; PLATELET LARGE PRESENT
[2018-05-05] MEDS ORDERED: HYDROMORPHONE HCL INJ/PF 2 MG/ML AMPULE IV PRN (07:55)
[2018-05-05] MEDS: METHADONE HCL 10 MG TABLET PO SCH ×2 (10:35→23:09)
[2018-05-05] MEDS: DOCUSATE SODIUM 100 MG CAPSULE PO SCH ×2 (10:36→17:06)
[2018-05-05] MEDS: HYDROXYUREA 500 MG CAPSULE PO SCH (10:36)
[2018-05-05] MEDS: FOLIC ACID 1 MG TABLET PO SCH (10:36)
[2018-05-05] MEDS: NORMAL SALINE 1000 ML 1,000 ML IV PRN ×2 (11:03→17:42)
[2018-05-05] MEDS: FONDAPARINUX SODIUM INJ 2.5 MG/0.5 ML DISP.SYRIN SUBCUT SCH (12:26)
--- NOTE | 2018-05-05 13:14 | PDOC PROGRESS REPORT ---
Subjective Progress Note for:: 05/05/18 Subjective:: 05/01/2018 37-year-old male admitted with sickle cell crisis. Events in the last 24 hours. Oncology is following the patient. 05/02/2018-no acute events in the last 24 hours. Afebrile. Admitted for sickle cell crisis. 05/03/2018 patient is doing well no acute events in the last 24 hours. Afebrile. Denies any complaints. 05/04-patient states he did not have a good sleep last night other than that he is doing well denies any problems other than a chronic pains. No acute events in the last 24 hours. Patient is afebrile. 05/05/2018-patient is comfortably in the bed denies any complaints. No acute events in the last 24 hours. Reason For Visit: SICKLE CELL CRISIS Physical Exam Vital Signs: Temp Pulse Resp BP Pulse Ox 99.4 F 75 17 135/79 H 100 05/05/18 07:25 05/05/18 07:25 05/05/18 07:25 05/05/18 07:25 05/05/18 07:25 Intake & Output 05/04/18 05/05/18 05/06/18 06:59 06:59 06:59 Intake Total 3066 2474 Output Total 2575 3650 Balance 491 -1176 Weight 86.1 kg 86.1 kg General appearance: PRESENT: no acute distress Head exam: PRESENT: atraumatic Eye exam: PRESENT: PERRLA Mouth exam: PRESENT: moist Neck exam: ABSENT: carotid bruit, JVD, lymphadenopathy, thyromegaly Respiratory exam: PRESENT: clear to auscultation anastasiya. ABSENT: rales, rhonchi, wheezes Cardiovascular exam: PRESENT: RRR. ABSENT: diastolic murmur, rubs, systolic murmur Vascular exam: PRESENT: normal capillary refill GI/Abdominal exam: PRESENT: normal bowel sounds, soft. ABSENT: distended, guarding, mass, organolmegaly, rebound, tenderness Extremities exam: PRESENT: full ROM. ABSENT: calf tenderness, clubbing, pedal edema Neurological exam: PRESENT: alert, awake, oriented to person, oriented to place, oriented to time, oriented to situation, CN II-XII grossly intact. ABSENT: motor sensory deficit Psychiatric exam: PRESENT: appropriate affect, normal mood. ABSENT: homicidal ideation, suicidal ideation Results Laboratory Results: 05/05/18 07:00 05/05/18 07:00 05/05/18 05/05/18 07:00 07:00 WBC 8.7 RBC 2.62 L Hgb 9.4 L Hct 26.0 L MCV 99 H MCH 35.8 H MCHC 36.1 H RDW 19.2 H Plt Count 451 H Seg Neutrophils % 72.1 Lymphocytes % 13.3 Monocytes % 11.1 Eosinophils % 1.5 Basophils % 2.0 Absolute Neutrophils 6.3 Absolute Lymphocytes 1.2 Absolute Monocytes 1.0 Absolute Eosinophils 0.1 Absolute Basophils 0.2 Sodium 143.7 Potassium 4.2 Chloride 105 Carbon Dioxide 31 H Anion Gap 8 BUN 7 Creatinine 0.58 Est GFR ( Amer) > 60 Est GFR (Non-Af Amer) > 60 Glucose 107 Calcium 8.8 Magnesium 1.8 Total Bilirubin 1.9 H AST 38 ALT 28 Alkaline Phosphatase 78 Total Protein 7.4 Albumin 4.1 Impressions: Chest X-Ray 04/30/18 00:00 IMPRESSION: Stable enlarged cardiac silhouette and chronic bibasilar interstitial changes without definite superimposed process. Assessment & Plan - Diagnosis (1) Sickle cell crisis Is this a current diagnosis for this admission?: Yes Plan: Patient will be admitted and receive IV fluids and high-volume, 250 mL/h. Additionally he will be treated with Dilaudid 2 mg IV every hour as needed pain Phenergan 25 mg IV every 4 hours as needed nausea vomiting and Benadryl 25 mg IV every 4 hours as needed itching. He will be started on high-dose hydroxyurea [address] Medellin will be consulted. 05/01/2018-plan for today is to give the fluids normal saline at 75 cc/h. To continue the pain management as per oncology recommendations. 05/02/2018-patient is getting her pain medications on regular basis. patient's pain issues are managed by Dr. Medellin. 05/03/2018-patient denies any complaints today he said his pain is under control today , going to continue follow the hematology recommendations about the pain management. 05/04/2018-patient is admitted with sickle cell crisis patient is on IV fluids at 150 cc/h as per oncologist and pain management as per the oncology team. 05/05/2018 patient with sickle cell anemia admitted for sickle cell crisis. He is getting IV fluids normal saline 150 cc/h and as needed pain medications. He is to continue the present management. (2) Sickle cell anemia Is this a current diagnosis for this admission?: Yes Plan: 05/01/2018 patient has a sickle cell anemia his hemoglobin is stable around 9.0. Oncology is following the patient. 05/02/2018-patient has history of sickle cell anemia and his hemoglobin is 9.0 and reticulocyte count is around 8. He is presently on Dilaudid 3.5 mg IV every 2 hours as needed and methadone 5 mg p.o. every 12 hours. 05/03/2018-patient's hemoglobin is 8.9 stable patient looks well-hydrated. Plan is to continue the present management. 05/04/2018 patient's hemoglobin is stable around 9. He is presently on a Dilaudid 3.5 mg IV every 12 hours as needed and methadone 5 mg p.o. every 12 hours and also on IV fluids normal saline at 150 cc/h. 05/05/2018 hemoglobin is 9.6 stable. Patient does not need any blood transfusion. In case if the hemoglobin drops to less than 7, planning to give 1 unit of PRBC. (3) Joint pain Qualifiers: Joint pain location: unspecified Qualified Code(s): M25.50 - Pain in unspecified joint Is this a current diagnosis for this admission?: Yes - Time Time Spent with patient: Less than 15 minutes Medications reviewed and adjusted accordingly: Yes Anticipated discharge: Home
[2018-05-05] MEDS: ACETAMINOPHEN 325 MG TABLET PO PRN (17:45)
[2018-05-05] MEDS: PSEUDOEPHEDRINE HCL 30 MG TABLET PO SCH (23:11)
[2018-05-06] MEDS: HYDROMORPHONE HCL INJ/PF 2 MG/ML AMPULE IV PRN ×10 (02:01→23:08)
--- NOTE | 2018-05-06 07:48 | PDOC PROGRESS REPORT ---
Subjective Progress Note for:: 05/06/18 Subjective:: Pt doing a little better, decreased pain med back down yesterday after 4mg dose was too much per pt. He hasn't yet walked out of the room, encouraged that. Also told him that his family can bring outside food that he may tolerate better than the hospital food. Reason For Visit: SICKLE CELL CRISIS Physical Exam Vital Signs: Temp Pulse Resp BP Pulse Ox 98.4 F 78 16 135/88 H 98 05/06/18 03:28 05/06/18 03:28 05/06/18 03:28 05/06/18 03:28 05/06/18 03:28 Intake & Output 05/05/18 05/06/18 05/07/18 06:59 06:59 06:59 Intake Total 2474 2475 Output Total 3650 4300 Balance -1176 -1825 Weight 86.1 kg 86.1 kg General appearance: PRESENT: no acute distress, well-developed, well-nourished Head exam: PRESENT: atraumatic, normocephalic Eye exam: PRESENT: conjunctiva pink, EOMI, PERRLA. ABSENT: scleral icterus Ear exam: PRESENT: normal external ear exam Mouth exam: PRESENT: moist, tongue midline Neck exam: ABSENT: carotid bruit, JVD, lymphadenopathy, thyromegaly Respiratory exam: PRESENT: clear to auscultation anastasiya. ABSENT: rales, rhonchi, wheezes Cardiovascular exam: PRESENT: RRR. ABSENT: diastolic murmur, rubs, systolic murmur Pulses: PRESENT: normal dorsalis pedis pul Vascular exam: PRESENT: normal capillary refill GI/Abdominal exam: PRESENT: normal bowel sounds, soft. ABSENT: distended, guarding, mass, organolmegaly, rebound, tenderness Rectal exam: PRESENT: deferred Extremities exam: PRESENT: full ROM. ABSENT: calf tenderness, clubbing, pedal edema Neurological exam: PRESENT: alert, awake, oriented to person, oriented to place, oriented to time, oriented to situation, CN II-XII grossly intact. ABSENT: motor sensory deficit Psychiatric exam: PRESENT: appropriate affect, normal mood. ABSENT: homicidal ideation, suicidal ideation Skin exam: PRESENT: dry, intact, warm. ABSENT: cyanosis, rash Results Laboratory Results: 05/05/18 07:00 05/05/18 07:00 05/05/18 05/05/18 07:00 07:00 WBC 8.7 RBC 2.62 L Hgb 9.4 L Hct 26.0 L MCV 99 H MCH 35.8 H MCHC 36.1 H RDW 19.2 H Plt Count 451 H Seg Neutrophils % 72.1 Lymphocytes % 13.3 Monocytes % 11.1 Eosinophils % 1.5 Basophils % 2.0 Absolute Neutrophils 6.3 Absolute Lymphocytes 1.2 Absolute Monocytes 1.0 Absolute Eosinophils 0.1 Absolute Basophils 0.2 Sodium 143.7 Potassium 4.2 Chloride 105 Carbon Dioxide 31 H Anion Gap 8 BUN 7 Creatinine 0.58 Est GFR ( Amer) > 60 Est GFR (Non-Af Amer) > 60 Glucose 107 Calcium 8.8 Magnesium 1.8 Total Bilirubin 1.9 H AST 38 ALT 28 Alkaline Phosphatase 78 Total Protein 7.4 Albumin 4.1 Impressions: Chest X-Ray 04/30/18 00:00 IMPRESSION: Stable enlarged cardiac silhouette and chronic bibasilar interstitial changes without definite superimposed process. Assessment & Plan - Diagnosis (1) Sickle cell crisis Is this a current diagnosis for this admission?: Yes Plan: Cont current regimen will need another 24 hours in, cont IVF, pain meds, supportive meds (2) Sickle cell anemia Qualifiers: Sickle-cell associated disorders: with unspecified crisis Qualified Code(s): D57.00 - Hb-SS disease with crisis, unspecified; D57.0 - Hb-SS disease with crisis Is this a current diagnosis for this admission?: Yes Plan: hb stable at 9 range, bili lower so less turnover, transfuse only if hb <7 - Time Time Spent with patient: 35 or more minutes - Inpatient Certification Based on my medical assessment, after consideration of the patient's comorbidities, presenting symptoms, or acuity I expect that the services needed warrant INPATIENT care.: Yes I certify that my determination is in accordance with my understanding of Medicare's requirements for reasonable and necessary INPATIENT services [42 CFR 412.3e].: Yes Medical Necessity: Need For IV Fluids, Need for Pain Control
[2018-05-06] MEDS: DIPHENHYDRAMINE HCL 50 MG/ML VIAL IV PRN ×2 (08:47→13:44)
[2018-05-06] MEDS: HYDROXYUREA 500 MG CAPSULE PO SCH (10:16)
[2018-05-06] MEDS: FOLIC ACID 1 MG TABLET PO SCH (10:16)
[2018-05-06] MEDS: FONDAPARINUX SODIUM INJ 2.5 MG/0.5 ML DISP.SYRIN SUBCUT SCH (10:16)
[2018-05-06] MEDS: DOCUSATE SODIUM 100 MG CAPSULE PO SCH ×2 (10:16→18:41)
[2018-05-06] MEDS: NORMAL SALINE 1000 ML 1,000 ML IV PRN ×2 (10:34→17:02)
[2018-05-06] MEDS: METHADONE HCL 10 MG TABLET PO SCH ×2 (10:34→21:02)
[2018-05-06] MEDS: ACETAMINOPHEN 325 MG TABLET PO PRN (16:06)
--- NOTE | 2018-05-06 16:12 | PDOC PROGRESS REPORT ---
Subjective Progress Note for:: 05/06/18 Subjective:: This is a 37 yr old male with a known sickle cell disease who was admitted with multiple LE joint pains and muscle aches. He was admitted for sickle cell crisis. Hematology following. He is on dilaudid 3.5 mg q2 prn. No acute event overnight. Today, he says his pain has mildly improved. Denies chest pain or SOB. Discussed about plan to gradually reduce his pain meds if his pain continues to subside. He is hesistant about this as he thinks decreasing his pain meds will increase his risk of going into crisis again. Patient re- educated on management of sickle cell crisis. Reason For Visit: SICKLE CELL CRISIS Physical Exam Vital Signs: Temp Pulse Resp BP Pulse Ox 98.7 F 78 19 138/90 H 96 05/06/18 11:21 05/06/18 14:00 05/06/18 11:21 05/06/18 11:21 05/06/18 11:21 Intake & Output 05/05/18 05/06/18 05/07/18 06:59 06:59 06:59 Intake Total 2474 3475 503 Output Total 3650 4300 700 Balance -1176 -825 -197 Weight 189 lb 13.088 oz 189 lb 13.088 oz General appearance: PRESENT: no acute distress, well-developed, well-nourished Head exam: PRESENT: atraumatic, normocephalic Eye exam: PRESENT: conjunctiva pink, EOMI, PERRLA. ABSENT: scleral icterus Ear exam: PRESENT: normal external ear exam Mouth exam: PRESENT: moist, tongue midline Neck exam: ABSENT: carotid bruit, JVD, lymphadenopathy, thyromegaly Respiratory exam: PRESENT: clear to auscultation anastasiya. ABSENT: rales, rhonchi, wheezes Cardiovascular exam: PRESENT: RRR. ABSENT: diastolic murmur, rubs, systolic murmur Pulses: PRESENT: normal dorsalis pedis pul GI/Abdominal exam: PRESENT: normal bowel sounds, soft. ABSENT: distended, guarding, mass, organolmegaly, rebound, tenderness Rectal exam: PRESENT: deferred Neurological exam: PRESENT: alert, awake, oriented to person, oriented to place, oriented to time, oriented to situation, CN II-XII grossly intact. ABSENT: motor sensory deficit Results Laboratory Results: 05/05/18 07:00 05/05/18 07:00 Impressions: Chest X-Ray 04/30/18 00:00 IMPRESSION: Stable enlarged cardiac silhouette and chronic bibasilar interstitial changes without definite superimposed process. Assessment & Plan - Diagnosis (1) Sickle cell crisis Is this a current diagnosis for this admission?: Yes Plan: Patient 's Hb is at baseline. He did have elevated retic count, LDH and sickle cells on labs. Hematology following. Continue IV fluids. On dialudid 3.5 mg q2h prn. He is also on his home methadone regimen. - Time Time Spent with patient: 25-34 minutes
[2018-05-06 18:46] LABS: ABSOLUTE RETICS # 0.201 10^6/uL (0.028-0.122); HEMATOCRIT 23.4 % (37.9-51.0); HEMOGLOBIN 8.5 g/dL (13.5-17.0); MEAN CORPUSCULAR HEMOGLOBIN 36.1 pg (27.0-33.4); MEAN CORPUSCULAR HGB CONC 36.3 g/dL (32.0-36.0); MEAN CORPUSCULAR VOLUME 100 fl (80-97); PLATELET COUNT 426 10^3/uL (150-450); RED BLOOD COUNT 2.36 10^6/uL (4.35-5.55); RED CELL DISTRIBUTION WIDTH 18.6 % (11.5-14.0); RETICULOCYTE COUNT (AUTO) 8.54 % (0.66-2.85); WHITE BLOOD COUNT 4.6 10^3/uL (4.0-10.5)
[2018-05-06 19:03] LABS: ABSOLUTE LYMPHOCYTES# (MANUAL) 0.9 10^3/uL (0.5-4.7); ABSOLUTE MONOCYTES # (MANUAL) 0.8 10^3/uL (0.1-1.4); ABSOLUTE NEUTROPHILS# (MANUAL) 2.8 10^3/uL (1.7-8.2); ALANINE AMINOTRANSFERASE 43 U/L (21-72); ALBUMIN 3.7 g/dL (3.5-5.0); ALKALINE PHOSPHATASE 67 U/L (38-126); ANION GAP 5 (5-19); ASPARTATE AMINO TRANSFERASE 56 U/L (17-59); BASOPHILS % (MANUAL) 1 % (0-2); BILIRUBIN,DIRECT 0.1 mg/dL (0.0-0.4); BILIRUBIN,TOTAL 1.3 mg/dL (0.2-1.3); BLOOD UREA NITROGEN 8 mg/dL (7-20); CALCIUM 8.5 mg/dL (8.4-10.2); CARBON DIOXIDE 30 mmol/L (22-30); CHLORIDE 104 mmol/L (98-107); EOSINOPHILS % (MANUAL) 2 % (0-6); GLUCOSE 128 mg/dL (75-110); LYMPHOCYTES % (MANUAL) 20 % (13-45); MONOCYTES % (MANUAL) 17 % (3-13); POTASSIUM 4.1 mmol/L (3.6-5.0); SEGMENTED NEUTROPHILS % (MAN) 60 % (42-78); SODIUM 139.3 mmol/L (137-145); TOTAL CELLS COUNTED 100; TOTAL PROTEIN 6.8 g/dL (6.3-8.2)
[2018-05-06 19:09] LABS: ANISOCYTOSIS 2+; PLATELET COMMENT ADEQUATE; PLATELET LARGE PRESENT; POIKILOCYTOSIS SLIGHT; POLYCHROMASIA SLIGHT; SICKLE RED CELLS 2+; TARGET CELLS 1+; TOXIC GRANULATION SLIGHT
[2018-05-06] MEDS: PSEUDOEPHEDRINE HCL 30 MG TABLET PO SCH (21:09)
[2018-05-07] MEDS: HYDROMORPHONE HCL INJ/PF 2 MG/ML AMPULE IV PRN ×9 (02:26→22:25)
--- NOTE | 2018-05-07 07:48 | PDOC PROGRESS REPORT ---
Subjective Progress Note for:: 05/07/18 Subjective:: Still having considerable pain, had a tough night Reason For Visit: SICKLE CELL CRISIS Physical Exam Vital Signs: Temp Pulse Resp BP Pulse Ox 98.0 F 78 17 138/87 H 96 05/07/18 04:41 05/07/18 04:41 05/07/18 04:41 05/07/18 04:41 05/07/18 04:41 Intake & Output 05/06/18 05/07/18 05/08/18 06:59 06:59 06:59 Intake Total 3475 2693 Output Total 4303 6240 Balance -825 -357 Weight 86.1 kg 87.4 kg General appearance: PRESENT: no acute distress, well-developed, well-nourished Head exam: PRESENT: atraumatic, normocephalic Eye exam: PRESENT: conjunctiva pink, EOMI, PERRLA. ABSENT: scleral icterus Ear exam: PRESENT: normal external ear exam Mouth exam: PRESENT: moist, tongue midline Neck exam: ABSENT: carotid bruit, JVD, lymphadenopathy, thyromegaly Respiratory exam: PRESENT: clear to auscultation anastasiya. ABSENT: rales, rhonchi, wheezes Cardiovascular exam: PRESENT: RRR. ABSENT: diastolic murmur, rubs, systolic murmur Pulses: PRESENT: normal dorsalis pedis pul Vascular exam: PRESENT: normal capillary refill GI/Abdominal exam: PRESENT: normal bowel sounds, soft. ABSENT: distended, guarding, mass, organolmegaly, rebound, tenderness Rectal exam: PRESENT: deferred Extremities exam: PRESENT: full ROM. ABSENT: calf tenderness, clubbing, pedal edema Neurological exam: PRESENT: alert, awake, oriented to person, oriented to place, oriented to time, oriented to situation, CN II-XII grossly intact. ABSENT: motor sensory deficit Psychiatric exam: PRESENT: appropriate affect, normal mood. ABSENT: homicidal ideation, suicidal ideation Skin exam: PRESENT: dry, intact, warm. ABSENT: cyanosis, rash Results Laboratory Results: 05/06/18 18:20 05/06/18 18:20 05/06/18 05/06/18 18:20 18:20 WBC 4.6 RBC 2.36 L Hgb 8.5 L Hct 23.4 L MCV 100 H MCH 36.1 H MCHC 36.3 H RDW 18.6 H Plt Count 426 Seg Neutrophils % Not Reportable Lymphocytes % Not Reportable Monocytes % Not Reportable Eosinophils % Not Reportable Basophils % Not Reportable Absolute Neutrophils Not Reportable Absolute Lymphocytes Not Reportable Absolute Monocytes Not Reportable Absolute Eosinophils Not Reportable Absolute Basophils Not Reportable Retic Count (auto) 8.54 H Absolute Retic 0.201 H Sodium 139.3 Potassium 4.1 Chloride 104 Carbon Dioxide 30 Anion Gap 5 BUN 8 Creatinine 0.57 Est GFR ( Amer) > 60 Est GFR (Non-Af Amer) > 60 Glucose 128 H Calcium 8.5 Total Bilirubin 1.3 AST 56 ALT 43 Alkaline Phosphatase 67 Total Protein 6.8 Albumin 3.7 Impressions: Chest X-Ray 04/30/18 00:00 IMPRESSION: Stable enlarged cardiac silhouette and chronic bibasilar interstitial changes without definite superimposed process. Assessment & Plan - Diagnosis (1) Sickle cell crisis Is this a current diagnosis for this admission?: Yes Plan: Con't current dosing, no changes today, will see how he is by tomorrow, he is not eating the diet here b/c of dietary restrictions that he has due to rastafari/cultural beliefs so I encouraged him to ask his family to bring in food for him, he has eaten minimally since being here which is probably contributing to his slower improvement. He understands this. No changes on other things today. (2) Sickle cell anemia Qualifiers: Sickle-cell associated disorders: with unspecified crisis Qualified Code(s): D57.00 - Hb-SS disease with crisis, unspecified; D57.0 - Hb-SS disease with crisis Is this a current diagnosis for this admission?: Yes Plan: Hb 8.5. Hold on tranfusion. 2nd to hemolysis - Time Time Spent with patient: 35 or more minutes - Inpatient Certification Based on my medical assessment, after consideration of the patient's comorbidities, presenting symptoms, or acuity I expect that the services needed warrant INPATIENT care.: Yes I certify that my determination is in accordance with my understanding of Medicare's requirements for reasonable and necessary INPATIENT services [42 CFR 412.3e].: Yes Medical Necessity: Need For IV Fluids, Need for Pain Control
[2018-05-07] MEDS: DIPHENHYDRAMINE HCL 50 MG/ML VIAL IV PRN ×4 (08:15→22:25)
[2018-05-07] MEDS: NORMAL SALINE 1000 ML 1,000 ML IV PRN ×3 (08:23→22:25)
[2018-05-07] MEDS: DOCUSATE SODIUM 100 MG CAPSULE PO SCH ×2 (10:39→18:01)
[2018-05-07] MEDS: FOLIC ACID 1 MG TABLET PO SCH (10:39)
[2018-05-07] MEDS: HYDROXYUREA 500 MG CAPSULE PO SCH (10:40)
[2018-05-07] MEDS: FONDAPARINUX SODIUM INJ 2.5 MG/0.5 ML DISP.SYRIN SUBCUT SCH ×2 (11:07→13:16)
--- NOTE | 2018-05-07 14:08 | RADIOLOGY REPORT (SQ) ---
EXAM DESCRIPTION: CHEST SINGLE VIEW COMPLETED DATE/TIME: 05/07/2018 1:51 pm REASON FOR STUDY: assess for congestion COMPARISON: 04/30/2018 EXAM PARAMETERS: NUMBER OF VIEWS: One view. TECHNIQUE: Single frontal radiographic view of the chest acquired. RADIATION DOSE: NA LIMITATIONS: None. FINDINGS: LUNGS AND PLEURA: Chronic interstitial changes are present in the lung bases. There is in creased opacification in the left lung base, however. MEDIASTINUM AND HILAR STRUCTURES: No masses. Contour normal. HEART AND VASCULAR STRUCTURES: Cardiomegaly. No carol pulmonary edema. BONES: No acute findings. HARDWARE: Injection port on the left. OTHER: No other significant finding. IMPRESSION: Cardiomegaly with no pulmonary edema. Chronic lung changes. Cannot exclude a limited l eft lower lobe pneumonia. TECHNICAL DOCUMENTATION: JOB ID: [id number] [employer]- All Rights Reserved Reading location - IP/workstation name: [email or web address]
--- NOTE | 2018-05-07 15:21 | PDOC PROGRESS REPORT ---
Subjective Progress Note for:: 05/07/18 Subjective:: This is a 37 yr old male with a known sickle cell disease who was admitted with multiple LE joint pains and muscle aches. He was admitted for sickle cell crisis. Hematology following. He is on dilaudid 3.5 mg q2 prn. This morning, he says he only had minimal improvement in his pain. Denies chest pain or SOB. He is not eating well due to food preferences. He has fine rales on the left base this morning. Denies cough or SOB. Chest x- ray ordered. Reason For Visit: SICKLE CELL CRISIS Physical Exam Vital Signs: Temp Pulse Resp BP Pulse Ox 97.7 F 66 16 121/81 99 05/07/18 11:19 05/07/18 11:19 05/07/18 11:19 05/07/18 11:19 05/07/18 11:19 Intake & Output 05/06/18 05/07/18 05/08/18 06:59 06:59 06:59 Intake Total 3475 3693 Output Total 4300 3050 Balance -825 643 Weight 189 lb 13.088 oz 192 lb 10.944 oz General appearance: PRESENT: no acute distress, well-developed, well-nourished Head exam: PRESENT: atraumatic, normocephalic Eye exam: PRESENT: conjunctiva pink, EOMI, PERRLA. ABSENT: scleral icterus Ear exam: PRESENT: normal external ear exam Mouth exam: PRESENT: moist, tongue midline Neck exam: ABSENT: carotid bruit, JVD, lymphadenopathy, thyromegaly Respiratory exam: PRESENT: rales - rales on the left base. ABSENT: rhonchi, wheezes Cardiovascular exam: PRESENT: RRR. ABSENT: diastolic murmur, rubs, systolic mu rmur Pulses: PRESENT: normal dorsalis pedis pul GI/Abdominal exam: PRESENT: normal bowel sounds, soft. ABSENT: distended, guarding, mass, organolmegaly, rebound, tenderness Rectal exam: PRESENT: deferred Neurological exam: PRESENT: alert, awake, oriented to person, oriented to place, oriented to time, oriented to situation, CN II-XII grossly intact. ABSENT: motor sensory deficit Results Laboratory Results: 05/06/18 18:20 05/06/18 18:20 05/06/18 05/06/18 18:20 18:20 WBC 4.6 RBC 2.36 L Hgb 8.5 L Hct 23.4 L MCV 100 H MCH 36.1 H MCHC 36.3 H RDW 18.6 H Plt Count 426 Seg Neutrophils % Not Reportable Lymphocytes % Not Reportable Monocytes % Not Reportable Eosinophils % Not Reportable Basophils % Not Reportable Absolute Neutrophils Not Reportable Absolute Lymphocytes Not Reportable Absolute Monocytes Not Reportable Absolute Eosinophils Not Reportable Absolute Basophils Not Reportable Retic Count (auto) 8.54 H Absolute Retic 0.201 H Sodium 139.3 Potassium 4.1 Chloride 104 Carbon Dioxide 30 Anion Gap 5 BUN 8 Creatinine 0.57 Est GFR ( Amer) > 60 Est GFR (Non-Af Amer) > 60 Glucose 128 H Calcium 8.5 Total Bilirubin 1.3 AST 56 ALT 43 Alkaline Phosphatase 67 Total Protein 6.8 Albumin 3.7 Impressions: Chest X-Ray 05/07/18 12:09 IMPRESSION: Cardiomegaly with no pulmonary edema. Chronic lung changes. Cannot exclude a limited left lower lobe pneumonia. Assessment & Plan - Diagnosis (1) Sickle cell crisis Is this a current diagnosis for this admission?: Yes Plan: Patient 's Hb close to baseline. He does have elevated retic count, LDH and sickle cells on labs. Hematology following. Continue IV fluids. On dialudid 3.5 mg q2h prn. He is also on his home methadone regimen. - Time Time Spent with patient: 15-24 minutes
[2018-05-07] MEDS: ACETAMINOPHEN 325 MG TABLET PO PRN (15:23)
[2018-05-07] MEDS: PSEUDOEPHEDRINE HCL 30 MG TABLET PO SCH (21:35)
[2018-05-08] MEDS: HYDROMORPHONE HCL INJ/PF 2 MG/ML AMPULE IV PRN ×11 (00:48→22:28)
[2018-05-08] MEDS: DIPHENHYDRAMINE HCL 50 MG/ML VIAL IV PRN ×6 (02:57→22:29)
[2018-05-08] MEDS: NORMAL SALINE 1000 ML 1,000 ML IV PRN ×3 (04:34→20:13)
[2018-05-08 05:37] LABS: HEMATOCRIT 23.8 % (37.9-51.0); HEMOGLOBIN 8.4 g/dL (13.5-17.0); MEAN CORPUSCULAR HEMOGLOBIN 35.3 pg (27.0-33.4); MEAN CORPUSCULAR HGB CONC 35.2 g/dL (32.0-36.0); MEAN CORPUSCULAR VOLUME 100 fl (80-97); PLATELET COUNT 417 10^3/uL (150-450); RED BLOOD COUNT 2.37 10^6/uL (4.35-5.55); WHITE BLOOD COUNT 4.6 10^3/uL (4.0-10.5)
[2018-05-08 05:55] LABS: ANION GAP 6 (5-19); BLOOD UREA NITROGEN 7 mg/dL (7-20); CALCIUM 8.6 mg/dL (8.4-10.2); CARBON DIOXIDE 29 mmol/L (22-30); CHLORIDE 105 mmol/L (98-107); GLUCOSE 129 mg/dL (75-110); POTASSIUM 4.2 mmol/L (3.6-5.0); SODIUM 139.8 mmol/L (137-145)
[2018-05-08 06:12] LABS: ABSOLUTE LYMPHOCYTES# (MANUAL) 1.9 10^3/uL (0.5-4.7); ABSOLUTE NEUTROPHILS# (MANUAL) 1.7 10^3/uL (1.7-8.2); BAND NEUTROPHILS % (MANUAL) 1 % (3-5); BASOPHILS % (MANUAL) 0 % (0-2); EOSINOPHILS % (MANUAL) 2 % (0-6); LYMPHOCYTES % (MANUAL) 40 % (13-45); MONOCYTES % (MANUAL) 21 % (3-13); NUCLEATED RED BLOOD CELLS 2 /100 WBC (0); SEGMENTED NEUTROPHILS % (MAN) 35 % (42-78); TOTAL CELLS COUNTED 100
[2018-05-08 06:13] LABS: ANISOCYTOSIS 2+; BURR CELLS SLIGHT; HOWELL-JOLLY BODIES PRESENT; PLATELET COMMENT ADEQUATE; PLATELET LARGE PRESENT; POIKILOCYTOSIS 2+; POLYCHROMASIA 1+; SCHISTOCYTES 1+; SICKLE RED CELLS 1+; TARGET CELLS 1+
--- NOTE | 2018-05-08 09:00 | RADIOLOGY REPORT (SQ) ---
EXAM DESCRIPTION: CHEST 2 VIEWS COMPLETED DATE/TIME: 05/08/2018 8:36 am REASON FOR STUDY: rales on left base COMPARISON: 05/07/2018. EXAM PARAMETERS: NUMBER OF VIEWS: two views TECHNIQUE: Digital Frontal and Lateral radiographic views of the chest acquired. RADIATION DOSE: NA LIMITATIONS: none FINDINGS: LUNGS AND PLEURA: External artifact. Scattered densities in the lung bases, similar to th e prior study. No pleural effusion. MEDIASTINUM AND HILAR STRUCTURES: No masses or contour abnormalities. HEART AND VASCULAR STRUCTURES: Stable cardiomegaly. Mild vascular prominence. BONES: No acute findings. HARDWARE: Vascular port. OTHER: No other significant finding. IMPRESSION: NO CHANGE IN APPEARANCE OF THE CHEST. CARDIOMEGALY WITH MILD VASCULAR PROMINENCE. MILD BASILAR DENSITIES, ATELECTASIS VERSUS FAINT INFILTRATE, UNCHANGED. TECHNICAL DOCUMENTATION: JOB ID: [id number] [employer]- All Rights Reserved Reading location - IP/workstation name: [email or web address]
--- NOTE | 2018-05-08 09:15 | PDOC PROGRESS REPORT ---
Subjective Progress Note for:: 05/08/18 Subjective:: Patient states that pain is getting better. However pain in ankles yesterday was severe after he tried to walk in [place]. He would like to be able to use benadryl either 1/2 to 1 dose q 4 hours. Reason For Visit: SICKLE CELL CRISIS Physical Exam Vital Signs: Temp Pulse Resp BP Pulse Ox 98.2 F 72 17 132/85 H 100 05/08/18 00:05 05/08/18 07:00 05/08/18 00:05 05/08/18 00:05 05/08/18 00:05 Intake & Output 05/07/18 05/08/18 05/09/18 06:59 06:59 06:59 Intake Total 3693 5285 Output Total 3050 2500 Balance 643 2785 Weight 87.4 kg 88.5 kg General appearance: PRESENT: well-developed, well-nourished Head exam: PRESENT: normocephalic Respiratory exam: PRESENT: unlabored Extremities exam: ABSENT: pedal edema Neurological exam: PRESENT: alert, awake Psychiatric exam: PRESENT: appropriate affect Skin exam: PRESENT: normal color Results Laboratory Results: 05/08/18 04:42 05/08/18 04:42 05/08/18 05/08/18 04:42 04:42 WBC 4.6 RBC 2.37 L Hgb 8.4 L Hct 23.8 L MCV 100 H MCH 35.3 H MCHC 35.2 RDW 19.0 H Plt Count 417 Seg Neutrophils % Not Reportable Lymphocytes % Not Reportable Monocytes % Not Reportable Eosinophils % Not Reportable Basophils % Not Reportable Absolute Neutrophils Not Reportable Absolute Lymphocytes Not Reportable Absolute Monocytes Not Reportable Absolute Eosinophils Not Reportable Absolute Basophils Not Reportable Sodium 139.8 Potassium 4.2 Chloride 105 Carbon Dioxide 29 Anion Gap 6 BUN 7 Creatinine 0.58 Est GFR ( Amer) > 60 Est GFR (Non-Af Amer) > 60 Glucose 129 H Calcium 8.6 Impressions: Chest X-Ray 05/08/18 07:00 IMPRESSION: NO CHANGE IN APPEARANCE OF THE CHEST. CARDIOMEGALY WITH MILD VASCULAR PROMINENCE. MILD BASILAR DENSITIES, ATELECTASIS VERSUS FAINT INFILTRATE, UNCHANGED. Assessment & Plan - Diagnosis (1) Sickle cell crisis Is this a current diagnosis for this admission?: Yes Plan: Continue pain medication without changes today, but patient agrees to try to walk more often in the [place]. I will increase benadryl PRN for itching. (2) DVT prophylaxis Is this a current diagnosis for this admission?: Yes (3) Joint pain Qualifiers: Joint pain location: unspecified Qualified Code(s): M25.50 - Pain in unspecified joint Is this a current diagnosis for this admission?: Yes - Plan Summary Plan Summary: I have encouraged him to wear his oxygen and continue to drink plenty of fluids.
[2018-05-08] MEDS: HYDROXYUREA 500 MG CAPSULE PO SCH (09:46)
[2018-05-08] MEDS: FOLIC ACID 1 MG TABLET PO SCH (09:46)
[2018-05-08] MEDS: DOCUSATE SODIUM 100 MG CAPSULE PO SCH ×2 (09:46→18:49)
[2018-05-08] MEDS: METHADONE HCL 10 MG TABLET PO SCH ×2 (10:40→22:26)
[2018-05-08] MEDS: FONDAPARINUX SODIUM INJ 2.5 MG/0.5 ML DISP.SYRIN SUBCUT SCH (15:34)
--- NOTE | 2018-05-08 16:07 | PDOC PROGRESS REPORT ---
Subjective Progress Note for:: 05/08/18 Subjective:: This is a 37 yr old male with a known sickle cell disease who was admitted with multiple LE joint pains and muscle aches. He was admitted for sickle cell crisis. Hematology primarily managing. He is on dilaudid 3.5 mg q2 prn per hem/onc. He says he had pain on his joints again last night. No cough or SOB. CXR showed atelectasis. No fever or chills. Reason For Visit: SICKLE CELL CRISIS Physical Exam Vital Signs: Temp Pulse Resp BP Pulse Ox 97.8 F 71 16 135/96 H 99 05/08/18 11:08 05/08/18 11:08 05/08/18 11:08 05/08/18 11:08 05/08/18 11:08 Intake & Output 05/07/18 05/08/18 05/09/18 06:59 06:59 06:59 Intake Total 3693 5285 1000 Output Total 3050 2500 Balance 643 2785 1000 Weight 192 lb 10.944 oz 195 lb 1.745 oz General appearance: PRESENT: no acute distress, well-developed, well-nourished Head exam: PRESENT: atraumatic, normocephalic Eye exam: PRESENT: conjunctiva pink, EOMI, PERRLA. ABSENT: scleral icterus Ear exam: PRESENT: normal external ear exam Mouth exam: PRESENT: moist, tongue midline Neck exam: ABSENT: carotid bruit, JVD, lymphadenopathy, thyromegaly Respiratory exam: PRESENT: clear to auscultation anastasiya. ABSENT: rales, rhonchi, w heezes Cardiovascular exam: PRESENT: RRR. ABSENT: diastolic murmur, rubs, systolic murmur Pulses: PRESENT: normal dorsalis pedis pul GI/Abdominal exam: PRESENT: normal bowel sounds, soft. ABSENT: distended, guarding, mass, organolmegaly, rebound, tenderness Rectal exam: PRESENT: deferred Neurological exam: PRESENT: alert, awake, oriented to person, oriented to place, oriented to time, oriented to situation, CN II-XII grossly intact. ABSENT: motor sensory deficit Results Laboratory Results: 05/08/18 04:42 05/08/18 04:42 05/08/18 05/08/18 04:42 04:42 WBC 4.6 RBC 2.37 L Hgb 8.4 L Hct 23.8 L MCV 100 H MCH 35.3 H MCHC 35.2 RDW 19.0 H Plt Count 417 Seg Neutrophils % Not Reportable Lymphocytes % Not Reportable Monocytes % Not Reportable Eosinophils % Not Reportable Basophils % Not Reportable Absolute Neutrophils Not Reportable Absolute Lymphocytes Not Reportable Absolute Monocytes Not Reportable Absolute Eosinophils Not Reportable Absolute Basophils Not Reportable Sodium 139.8 Potassium 4.2 Chloride 105 Carbon Dioxide 29 Anion Gap 6 BUN 7 Creatinine 0.58 Est GFR ( Amer) > 60 Est GFR (Non-Af Amer) > 60 Glucose 129 H Calcium 8.6 Impressions: Chest X-Ray 05/08/18 07:00 IMPRESSION: NO CHANGE IN APPEARANCE OF THE CHEST. CARDIOMEGALY WITH MILD VASCULAR PROMINENCE. MILD BASILAR DENSITIES, ATELECTASIS VERSUS FAINT INFILTRATE, UNCHANGED. Assessment & Plan - Diagnosis (1) Sickle cell crisis Is this a current diagnosis for this admission?: Yes Plan: Patient 's Hb close to baseline. He does have elevated retic count, LDH and sickle cells on labs. Hematology following. Continue IV fluids. On dialudid 3.5 mg q2h prn. He is also on his home methadone regimen. (2) Atelectasis Is this a current diagnosis for this admission?: Yes Plan: Start incentive spirometry. No cough, fever or leukocytosis concerning for pneumonia. Patient encouraged to ambulate as well as him being bed-bound is likely contributing to his atelectasis. - Time Time Spent with patient: 25-34 minutes
[2018-05-08] MEDS: PSEUDOEPHEDRINE HCL 30 MG TABLET PO SCH (22:27)
[2018-05-09] MEDS: ACETAMINOPHEN 325 MG TABLET PO PRN (03:07)
[2018-05-09] MEDS: HYDROMORPHONE HCL INJ/PF 2 MG/ML AMPULE IV PRN ×9 (03:08→23:43)
[2018-05-09] MEDS: DIPHENHYDRAMINE HCL 50 MG/ML VIAL IV PRN ×4 (05:07→23:43)
--- NOTE | 2018-05-09 08:35 | PDOC PROGRESS REPORT ---
Subjective Progress Note for:: 05/09/18 Subjective:: No acute events overnight, discussed decreasing pain medication alternating with oral pain medication to see if we can get him ready to go home soon. Reason For Visit: SICKLE CELL CRISIS Physical Exam Vital Signs: Temp Pulse Resp BP Pulse Ox 98.8 F 113 H 14 130/84 H 99 05/08/18 23:28 05/09/18 07:00 05/08/18 23:28 05/08/18 23:28 05/08/18 23:28 Intake & Output 05/08/18 05/09/18 05/10/18 06:59 06:59 06:59 Intake Total 5285 3488 Output Total 2500 3100 Balance 2785 388 Weight 88.5 kg 92.1 kg Results Laboratory Results: 05/08/18 04:42 05/08/18 04:42 Impressions: Chest X-Ray 05/08/18 07:00 IMPRESSION: NO CHANGE IN APPEARANCE OF THE CHEST. CARDIOMEGALY WITH MILD V ASCULAR PROMINENCE. MILD BASILAR DENSITIES, ATELECTASIS VERSUS FAINT INFILTRATE, UNCHANGED. Assessment & Plan - Diagnosis (1) Sickle cell crisis Is this a current diagnosis for this admission?: Yes Plan: Improved, decreased pain medication continue other supportive medicines. (2) Sickle cell anemia Qualifiers: Sickle-cell associated disorders: with unspecified crisis Qualified Code(s): D57.00 - Hb-SS disease with crisis, unspecified; D57.0 - Hb-SS disease with crisis Is this a current diagnosis for this admission?: Yes Plan: Globin stable thus far
[2018-05-09] MEDS: NORMAL SALINE 1000 ML 1,000 ML IV PRN ×2 (10:35→17:27)
[2018-05-09] MEDS: METHADONE HCL 10 MG TABLET PO SCH ×2 (10:37→21:41)
[2018-05-09] MEDS: FOLIC ACID 1 MG TABLET PO SCH (10:37)
[2018-05-09] MEDS: DOCUSATE SODIUM 100 MG CAPSULE PO SCH ×2 (10:39→17:25)
[2018-05-09] MEDS: FONDAPARINUX SODIUM INJ 2.5 MG/0.5 ML DISP.SYRIN SUBCUT SCH (10:39)
[2018-05-09] MEDS: HYDROXYUREA 500 MG CAPSULE PO SCH (10:40)
[2018-05-09 11:49] LABS: ABSOLUTE RETICS # 0.178 10^6/uL (0.028-0.122); HEMATOCRIT 24.6 % (37.9-51.0); HEMOGLOBIN 8.5 g/dL (13.5-17.0); MEAN CORPUSCULAR HEMOGLOBIN 34.7 pg (27.0-33.4); MEAN CORPUSCULAR HGB CONC 34.5 g/dL (32.0-36.0); MEAN CORPUSCULAR VOLUME 100 fl (80-97); PLATELET COUNT 410 10^3/uL (150-450); RED BLOOD COUNT 2.45 10^6/uL (4.35-5.55); RED CELL DISTRIBUTION WIDTH 18.9 % (11.5-14.0); RETICULOCYTE COUNT (AUTO) 7.26 % (0.66-2.85); WHITE BLOOD COUNT 5.5 10^3/uL (4.0-10.5)
[2018-05-09 11:52] LABS: ANION GAP 7 (5-19); BLOOD UREA NITROGEN 10 mg/dL (7-20); CALCIUM 8.8 mg/dL (8.4-10.2); CARBON DIOXIDE 29 mmol/L (22-30); CHLORIDE 105 mmol/L (98-107); GLUCOSE 99 mg/dL (75-110); POTASSIUM 4.7 mmol/L (3.6-5.0); SODIUM 140.5 mmol/L (137-145)
[2018-05-09 12:04] LABS: ABSOLUTE LYMPHOCYTES# (MANUAL) 2.6 10^3/uL (0.5-4.7); ABSOLUTE MONOCYTES # (MANUAL) 0.8 10^3/uL (0.1-1.4); ABSOLUTE NEUTROPHILS# (MANUAL) 1.9 10^3/uL (1.7-8.2); BASOPHILS % (MANUAL) 0 % (0-2); EOSINOPHILS % (MANUAL) 3 % (0-6); LYMPHOCYTES % (MANUAL) 48 % (13-45); MONOCYTES % (MANUAL) 14 % (3-13); NUCLEATED RED BLOOD CELLS 2 /100 WBC (0); SEGMENTED NEUTROPHILS % (MAN) 35 % (42-78); TOTAL CELLS COUNTED 100
[2018-05-09 12:07] LABS: ANISOCYTOSIS 2+; POIKILOCYTOSIS 2+; POLYCHROMASIA 1+
[2018-05-09 12:08] LABS: HOWELL-JOLLY BODIES PRESENT; PLATELET COMMENT ADEQUATE; SCHISTOCYTES SLIGHT; SICKLE RED CELLS 2+; TARGET CELLS 2+
[2018-05-09 12:09] LABS: PLATELET LARGE PRESENT
--- NOTE | 2018-05-09 15:21 | PDOC PROGRESS REPORT ---
Subjective Progress Note for:: 05/09/18 Subjective:: This is a 37 yr old male with a known sickle cell disease who was admitted with multiple LE joint pains and muscle aches. He was admitted for sickle cell crisis. Hematology primarily managing pain regimen. No acute event overnight. He says his pain is better today. No cough or SOB. CXR showed atelectasis. No fever or chills. Dilaudid reduced to 3 mg q2h prn by hem today. Reason For Visit: SICKLE CELL CRISIS Physical Exam Vital Signs: Temp Pulse Resp BP Pulse Ox 98.5 F 66 16 131/89 H 93 05/09/18 11:21 05/09/18 11:21 05/09/18 11:21 05/09/18 11:21 05/09/18 11:21 Intake & Output 05/08/18 05/09/18 05/10/18 06:59 06:59 06:59 Intake Total 5285 4488 Output Total 2500 3100 Balance 2785 1388 Weight 195 lb 1.745 oz 203 lb 0.732 oz General appearance: PRESENT: no acute distress, well-developed, well-nourished Head exam: PRESENT: atraumatic, normocephalic Eye exam: PRESENT: conjunctiva pink, EOMI, PERRLA. ABSENT: scleral icterus Ear exam: PRESENT: normal external ear exam Mouth exam: PRESENT: moist, tongue midline Neck exam: ABSENT: carotid bruit, JVD, lymphadenopathy, thyromegaly Respiratory exam: PRESENT: clear to auscultation anastasiya. ABSENT: rales, rhonchi, wheezes Cardiovascular exam: PRESENT: RRR. ABSENT: diastolic murmur, rubs, systolic murmur Pulses: PRESENT: normal dorsalis pedis pul GI/Abdominal exam: PRESENT: normal bowel sounds, soft. ABSENT: distended, guarding, mass, organolmegaly, rebound, tenderness Rectal exam: PRESENT: deferred Extremities exam: PRESENT: full ROM. ABSENT: calf tenderness, clubbing, pedal edema Neurological exam: PRESENT: alert, awake, oriented to person, oriented to place, oriented to time, oriented to situation, CN II-XII grossly intact. ABSENT: m otor sensory deficit Results Laboratory Results: 05/09/18 07:00 05/09/18 07:00 05/09/18 05/09/18 07:00 07:00 WBC 5.5 RBC 2.45 L Hgb 8.5 L Hct 24.6 L MCV 100 H MCH 34.7 H MCHC 34.5 RDW 18.9 H Plt Count 410 Seg Neutrophils % Not Reportable Lymphocytes % Not Reportable Monocytes % Not Reportable Eosinophils % Not Reportable Basophils % Not Reportable Absolute Neutrophils Not Reportable Absolute Lymphocytes Not Reportable Absolute Monocytes Not Reportable Absolute Eosinophils Not Reportable Absolute Basophils Not Reportable Retic Count (auto) 7.26 H Absolute Retic 0.178 H Sodium 140.5 Potassium 4.7 Chloride 105 Carbon Dioxide 29 Anion Gap 7 BUN 10 Creatinine 0.71 Est GFR ( Amer) > 60 Est GFR (Non-Af Amer) > 60 Glucose 99 Calcium 8.8 Impressions: Chest X-Ray 05/08/18 07:00 IMPRESSION: NO CHANGE IN APPEARANCE OF THE CHEST. CARDIOMEGALY WITH MILD VASCULAR PROMINENCE. MILD BASILAR DENSITIES, ATELECTASIS VERSUS FAINT INFILTRATE, UNCHANGED. Assessment & Plan - Diagnosis (1) Sickle cell crisis Is this a current diagnosis for this admission?: Yes Plan: Patient 's Hb close to baseline. He does have elevated retic count, LDH and sickle cells on labs. Hematology following. Continue IV fluids. Dilaudid reduced to 3 mg q2h prn, added oxycodone rpn for mild pain by hem. He is also on his home methadone regimen. (2) Atelectasis Is this a current diagnosis for this admission?: Yes Plan: Conitnue incentive spirometry. No cough, fever or leukocytosis concerning for pneumonia. Patient encouraged to continue to ambulate as well as him being bed-bound is likely contributing to his atelectasis. - Time Time Spent with patient: 15-24 minutes
[2018-05-09] MEDS: PSEUDOEPHEDRINE HCL 30 MG TABLET PO SCH (21:40)
[2018-05-10] MEDS: NORMAL SALINE 1000 ML 1,000 ML IV PRN ×3 (00:08→21:21)
[2018-05-10] MEDS: HYDROMORPHONE HCL INJ/PF 2 MG/ML AMPULE IV PRN ×8 (02:02→23:35)
[2018-05-10] MEDS: OXYCODONE HCL IR 5 MG TABLET PO PRN (06:11)
[2018-05-10] MEDS: DOCUSATE SODIUM 100 MG CAPSULE PO SCH ×2 (10:41→20:50)
[2018-05-10] MEDS: FONDAPARINUX SODIUM INJ 2.5 MG/0.5 ML DISP.SYRIN SUBCUT SCH (10:41)
[2018-05-10] MEDS: HYDROXYUREA 500 MG CAPSULE PO SCH (10:41)
[2018-05-10] MEDS: FOLIC ACID 1 MG TABLET PO SCH (10:42)
[2018-05-10] MEDS: METHADONE HCL 10 MG TABLET PO SCH ×2 (10:42→21:20)
--- NOTE | 2018-05-10 12:00 | PDOC PROGRESS REPORT ---
Subjective Progress Note for:: 05/10/18 Subjective:: Pt doing better over last 24 hours still needed several doses of dilaudid for b/t pain, will require another 24 hours pain control inpt Reason For Visit: SICKLE CELL CRISIS Physical Exam Vital Signs: Temp Pulse Resp BP Pulse Ox 97.9 F 67 16 146/86 H 100 05/10/18 07:46 05/10/18 07:46 05/10/18 07:46 05/10/18 07:46 05/10/18 07:46 Intake & Output 05/09/18 05/10/18 05/11/18 06:59 06:59 06:59 Intake Total 4488 4532 Output Total 3100 2225 Balance 1388 2307 Weight 92.1 kg 94.7 kg General appearance: PRESENT: no acute distress, well-developed, well-nourished Head exam: PRESENT: atraumatic, normocephalic Eye exam: PRESENT: conjunctiva pink, EOMI, PERRLA. ABSENT: scleral icterus Ear exam: PRESENT: normal external ear exam Mouth exam: PRESENT: moist, tongue midline Neck exam: ABSENT: carotid bruit, JVD, lymphadenopathy, thyromegaly Respiratory exam: PRESENT: clear to auscultation anastasiya. ABSENT: rales, rhonchi, wheezes Cardiovascular exam: PRESENT: RRR. ABSENT: diastolic murmur, rubs, systolic murmur Pulses: PRESENT: normal dorsalis pedis pul Vascular exam: PRESENT: normal capillary refill GI/Abdominal exam: PRESENT: normal bowel sounds, soft. ABSENT: distended, guarding, mass, organolmegaly, rebound, tenderness Rectal exam: PRESENT: deferred Extremities exam: PRESENT: full ROM. ABSENT: calf tenderness, clubbing, pedal edema Neurological exam: PRESENT: alert, awake, oriented to person, oriented to place, oriented to time, oriented to situation, CN II-XII grossly intact. ABSENT: motor sensory deficit Psychiatric exam: PRESENT: appropriate affect, normal mood. ABSENT: homicidal ideation, suicidal ideation Skin exam: PRESENT: dry, intact, warm. ABSENT: cyanosis, rash Results Laboratory Results: 05/09/18 07:00 05/09/18 07:00 05/09/18 07:00 WBC 5.5 RBC 2.45 L Hgb 8.5 L Hct 24.6 L MCV 100 H MCH 34.7 H MCHC 34.5 RDW 18.9 H Plt Count 410 Seg Neutrophils % Not Reportable Lymphocytes % Not Reportable Monocytes % Not Reportable Eosinophils % Not Reportable Basophils % Not Reportable Absolute Neutrophils Not Reportable Absolute Lymphocytes Not Reportable Absolute Monocytes Not Reportable Absolute Eosinophils Not Reportable Absolute Basophils Not Reportable Retic Count (auto) 7.26 H Absolute Retic 0.178 H Impressions: Chest X-Ray 05/08/18 07:00 IMPRESSION: NO CHANGE IN APPEARANCE OF THE CHEST. CARDIOMEGALY WITH MILD VASCULAR PROMINENCE. MILD BASILAR DENSITIES, ATELECTASIS VERSUS FAINT INFILTRATE, UNCHANGED. Assessment & Plan - Diagnosis (1) Sickle cell crisis Is this a current diagnosis for this admission?: Yes Plan: Cont IV pain meds x 24 more hours, cont oral pain meds based on pain scale, he should be ready for d/c by tomorrow. I will give rx for oxycodone tomorrow. He will begin following me as oupt also and I will take care of his pain needs. (2) Sickle cell anemia Qualifiers: Sickle-cell associated disorders: with unspecified crisis Qualified Code(s): D57.00 - Hb-SS disease with crisis, unspecified; D57.0 - Hb-SS disease with crisis Is this a current diagnosis for this admission?: Yes Plan: Hb still 8 range, no transfusion as of now - Time Time Spent with patient: 35 or more minutes Anticipated discharge: Home Within: within 24 hours - Inpatient Certification Based on my medical assessment, after consideration of the patient's comorbidities, presenting symptoms, or acuity I expect that the services needed warrant INPATIENT care.: Yes I certify that my determination is in accordance with my understanding of Medicare's requirements for reasonable and necessary INPATIENT services [42 CFR 412.3e].: Yes Medical Necessity: Need For IV Fluids, Need for Pain Control
--- NOTE | 2018-05-10 14:46 | PDOC PROGRESS REPORT ---
Subjective Progress Note for:: 05/10/18 Subjective:: This is a 37 yr old male with a known sickle cell disease who was admitted with multiple LE joint pains and muscle aches. He was admitted for sickle cell crisis. Hematology primarily managing pain regimen. No acute event overnight. He says he still had some joint pains. No cough or SOB. CXR showed atelectasis. No fever or chills. Reason For Visit: SICKLE CELL CRISIS Physical Exam Vital Signs: Temp Pulse Resp BP Pulse Ox 98.7 F 70 16 127/89 H 91 L 05/10/18 11:39 05/10/18 11:39 05/10/18 11:39 05/10/18 11:39 05/10/18 11:39 Intake & Output 05/09/18 05/10/18 05/11/18 06:59 06:59 06:59 Intake Total 4488 4532 Output Total 3100 2225 Balance 1388 2307 Weight 203 lb 0.732 oz 208 lb 12.444 oz General appearance: PRESENT: no acute distress, well-developed, well-nourished Head exam: PRESENT: atraumatic, normocephalic Eye exam: PRESENT: conjunctiva pink, EOMI, PERRLA. ABSENT: scleral icterus Ear exam: PRESENT: normal external ear exam Mouth exam: PRESENT: moist, tongue midline Neck exam: ABSENT: carotid bruit, JVD, lymphadenopathy, thyromegaly Respiratory exam: PRESENT: clear to auscultation anastasiya. ABSENT: rales, rhonchi, wheezes Cardiovascular exam: PRESENT: RRR. ABSENT: diastolic murmur, rubs, systolic murmur Pulses: PRESENT: normal dorsalis pedis pul GI/Abdominal exam: PRESENT: normal bowel sounds, soft. ABSENT: distended, guarding, mass, organolmegaly, rebound, tenderness Rectal exam: PRESENT: deferred Neurological exam: PRESENT: alert, awake, oriented to person, oriented to place, oriented to time, oriented to situation, CN II-XII grossly intact. ABSENT: motor sensory deficit Results Laboratory Results: 05/09/18 07:00 05/09/18 07:00 Impressions: Chest X-Ray 05/08/18 07:00 IMPRESSION: NO CHANGE IN APPEARANCE OF THE CHEST. CARDIOMEGALY WITH MILD VASCULAR PROMINENCE. MILD BASILAR DENSITIES, ATELECTASIS VERSUS FAINT INFILTRATE, UNCHANGED. Assessment & Plan - Diagnosis (1) Sickle cell crisis Is this a current diagnosis for this admission?: Yes Plan: Patient 's Hb close to baseline. He does have elevated retic count, LDH and sickle cells on labs. Hematology following. Continue IV fluids. 05/08/18: Dilaudid reduced to 3 mg q2h prn, added oxycodone prn for mild pain by hem. He is also on his home methadone regimen. (2) Atelectasis Is this a current diagnosis for this admission?: Yes Plan: Continue incentive spirometry. No cough, fever or leukocytosis concerning for pneumonia. Patient encouraged to continue to ambulate as well as him being bed-bound is likely contributing to his atelectasis. - Time Time Spent with patient: 15-24 minutes
[2018-05-10] MEDS: PSEUDOEPHEDRINE HCL 30 MG TABLET PO SCH (21:20)
[2018-05-10 21:58] LABS: ABSOLUTE RETICS # 0.173 10^6/uL (0.028-0.122); HEMATOCRIT 25.5 % (37.9-51.0); HEMOGLOBIN 9.2 g/dL (13.5-17.0); MEAN CORPUSCULAR HEMOGLOBIN 36.1 pg (27.0-33.4); MEAN CORPUSCULAR HGB CONC 36.3 g/dL (32.0-36.0); MEAN CORPUSCULAR VOLUME 99 fl (80-97); PLATELET COUNT 387 10^3/uL (150-450); RED BLOOD COUNT 2.56 10^6/uL (4.35-5.55); RED CELL DISTRIBUTION WIDTH 19.8 % (11.5-14.0); RETICULOCYTE COUNT (AUTO) 6.76 % (0.66-2.85); WHITE BLOOD COUNT 7.7 10^3/uL (4.0-10.5)
[2018-05-10 22:20] LABS: ABSOLUTE LYMPHOCYTES# (MANUAL) 2.3 10^3/uL (0.5-4.7); ABSOLUTE MONOCYTES # (MANUAL) 0.6 10^3/uL (0.1-1.4); ABSOLUTE NEUTROPHILS# (MANUAL) 4.8 10^3/uL (1.7-8.2); BASOPHILS % (MANUAL) 0 % (0-2); EOSINOPHILS % (MANUAL) 0 % (0-6); LYMPHOCYTES % (MANUAL) 30 % (13-45); MONOCYTES % (MANUAL) 8 % (3-13); NUCLEATED RED BLOOD CELLS 1 /100 WBC (0); SEGMENTED NEUTROPHILS % (MAN) 62 % (42-78); TOTAL CELLS COUNTED 100
[2018-05-10 22:24] LABS: OVALOCYTES 1+; POIKILOCYTOSIS 2+; POLYCHROMASIA SLIGHT; SCHISTOCYTES SLIGHT; SICKLE RED CELLS 1+
[2018-05-10 22:25] LABS: HOWELL-JOLLY BODIES PRESENT; PLATELET COMMENT ADEQUATE
[2018-05-10 22:27] LABS: ANISOCYTOSIS 2+; TARGET CELLS 1+
[2018-05-10 22:29] LABS: PLATELET LARGE PRESENT
[2018-05-10] MEDS: ACETAMINOPHEN 325 MG TABLET PO PRN (23:40)
[2018-05-11] MEDS: HYDROMORPHONE HCL INJ/PF 2 MG/ML AMPULE IV PRN ×8 (01:41→17:47)
[2018-05-11] MEDS: NORMAL SALINE 1000 ML 1,000 ML IV PRN ×2 (03:49→10:38)
[2018-05-11] MEDS: METHADONE HCL 10 MG TABLET PO SCH (09:57)
[2018-05-11] MEDS: HYDROXYUREA 500 MG CAPSULE PO SCH (09:58)
[2018-05-11] MEDS: DOCUSATE SODIUM 100 MG CAPSULE PO SCH ×2 (09:59→17:48)
[2018-05-11] MEDS: FOLIC ACID 1 MG TABLET PO SCH (09:59)
[2018-05-11] MEDS: FONDAPARINUX SODIUM INJ 2.5 MG/0.5 ML DISP.SYRIN SUBCUT SCH ×2 (09:59→11:29)
--- NOTE | 2018-05-11 10:20 | PDOC PROGRESS REPORT ---
Subjective Progress Note for:: 05/11/18 Subjective:: Pt doing better today, ready for d/c home today. His ride will be here by 6pm to get him. Told nursing to keep meds active until then and give 1 dose pain med before he leaves. I wrote Rx for oxycodone for pt. Pt will call our office tomorrow and make appt for 1 wk post d/c to be seen. Reason For Visit: SICKLE CELL CRISIS Physical Exam Vital Signs: Temp Pulse Resp BP Pulse Ox 98.6 F 70 16 126/75 H 89 L 05/11/18 07:51 05/11/18 07:51 05/11/18 07:51 05/11/18 07:51 05/11/18 07:51 Intake & Output 05/10/18 05/11/18 05/12/18 06:59 06:59 06:59 Intake Total 4532 2288 Output Total 2225 1100 Balance 2307 1188 Weight 94.7 kg 97.8 kg General appearance: PRESENT: no acute distress, well-developed, well-nourished Head exam: PRESENT: atraumatic, normocephalic Eye exam: PRESENT: conjunctiva pink, EOMI, PERRLA. ABSENT: scleral icterus Ear exam: PRESENT: normal external ear exam Mouth exam: PRESENT: moist, tongue midline Neck exam: ABSENT: carotid bruit, JVD, lymphadenopathy, thyromegaly Respiratory exam: PRESENT: clear to auscultation anastasiya. ABSENT: rales, rhonchi, wheezes Cardiovascular exam: PRESENT: RRR. ABSENT: diastolic murmur, rubs, systolic murmur Pulses: PRESENT: normal dorsalis pedis pul Vascular exam: PRESENT: normal capillary refill GI/Abdominal exam: PRESENT: normal bowel sounds, soft. ABSENT: distended, guarding, mass, organolmegaly, rebound, tenderness Rectal exam: PRESENT: deferred Extremities exam: PRESENT: full ROM. ABSENT: calf tenderness, clubbing, pedal edema Neurological exam: PRESENT: alert, awake, oriented to person, oriented to place, oriented to time, oriented to situation, CN II-XII grossly intact. ABSENT: motor sensory deficit Psychiatric exam: PRESENT: appropriate affect, normal mood. ABSENT: homicidal ideation, suicidal ideation Skin exam: PRESENT: dry, intact, warm. ABSENT: cyanosis, rash Results Laboratory Results: 05/10/18 21:45 05/09/18 07:00 05/10/18 21:45 WBC 7.7 RBC 2.56 L Hgb 9.2 L Hct 25.5 L MCV 99 H MCH 36.1 H MCHC 36.3 H RDW 19.8 H Plt Count 387 Seg Neutrophils % Not Reportable Lymphocytes % Not Reportable Monocytes % Not Reportable Eosinophils % Not Reportable Basophils % Not Reportable Absolute Neutrophils Not Reportable Absolute Lymphocytes Not Reportable Absolute Monocytes Not Reportable Absolute Eosinophils Not Reportable Absolute Basophils Not Reportable Retic Count (auto) 6.76 H Absolute Retic 0.173 H Impressions: Chest X-Ray 05/08/18 07:00 IMPRESSION: NO CHANGE IN APPEARANCE OF THE CHEST. CARDIOMEGALY WITH MILD VASCULAR PROMINENCE. MILD BASILAR DENSITIES, ATELECTASIS VERSUS FAINT IN FILTRATE, UNCHANGED. Assessment & Plan - Diagnosis (1) Sickle cell crisis Is this a current diagnosis for this admission?: Yes Plan: Improved, d/c home later today, f/u in our office (2) Sickle cell anemia Qualifiers: Sickle-cell associated disorders: with unspecified crisis Qualified Code(s): D57.00 - Hb-SS disease with crisis, unspecified; D57.0 - Hb-SS disease with crisis Is this a current diagnosis for this admission?: Yes Plan: Hb improved, will not need transfusion prior to d/c
[2018-05-11] MEDS: OXYCODONE HCL IR 5 MG TABLET PO PRN ×2 (10:41→17:36)
--- NOTE | 2018-05-11 15:00 | PDOC DISCHARGE SUMMARY ---
General - Admit/Disc Date/PCP Admission Date/Primary Care Provider: 04/30/18 06:17 Discharge Date: 05/11/18 - Discharge Diagnosis (1) Sickle cell crisis Is this a current diagnosis for this admission?: Yes (2) Atelectasis Is this a current diagnosis for this admission?: Yes - Additional Information Resuscitation Status: Full Code Home Medications: Methadone HCl [Dolophine HCl] 5 mg PO BID 10/11/16 Oxycodone HCl [Oxycodone HCl 10 MG Tablet] 10 mg PO Q8HP PRN 04/05/17 Hydroxyurea 1,500 mg PO DAILY 03/22/18 Docusate Sodium [Colace 100 mg Capsule] 100 mg PO BIDP PRN 04/22/18 Folic Acid [Folvite 1 mg Tablet] 1 mg PO DAILY 04/22/18 Ibuprofen [Motrin 600 mg Tablet] 600 mg PO Q6HP PRN 04/30/18 History of Present Illness History of Present Illness: Admitting hospitalist's H&P: MARISA GARBER is a 37 year old male who presented to the emergency room with a 1 day history of bilateral lower extremity pain. He admits a history of sickle cell disease and this is his typical sickle cell pain. Pain involves the joints of his lower extremities as well as the muscular areas. He further admits that in the last 3-4-weeks he has been experiencing lesser episodes of similar pain. He rates the pain at the present time as severe and admits that it is not radiating and tends to wax and wane. He further admits numerous similar episodes in the past many of which have required hospitalization for pain control. He denies any aggravating or ameliorating factors identified for his pain. He has had accompanying symptoms of subjective fever and chills with the current episode. In the emergency room he was treated with IV fluid and analgesics which helped but did not resolve the symptoms and as such he was admitted to the hospital for further evaluation and treatment. Hospital Course Hospital Course: This is a 37 yr old male with a known sickle cell disease who was admitted with multiple LE joint pains and muscle aches. He was admitted for sickle cell crisis. He was started on IV fluids and pain medications. He takes methadone at home. He was started on dilaudid and pain medication and adjustment was primarily managed by hematology. He had slow improvement in his pain. He did develop some rales on the right base but was not having cough, fever or leukocytosis. CXR showed atelectasis likely from being bed-bound. He was started on incentive spirometry and encouraged to ambulate. Patient 's was close to baseline. He did have elevated retic count, LDH and sickle cells on labs. He did not require blood transfusion. His retic count and pain did gradually improve and de was subsequently cleared for discharge by hem/onc. He will be following up with Dr. Medellin who will also be managing his pain regimen. Physical Exam Vital Signs: Temp Pulse Resp BP Pulse Ox 98.0 F 72 16 129/87 H 90 L 05/11/18 11:41 05/11/18 11:41 05/11/18 11:41 05/11/18 11:41 05/11/18 11:41 Intake & Output 05/10/18 05/11/18 05/12/18 06:59 06:59 06:59 Intake Total 4532 2288 1000 Output Total 2225 1100 Balance 2307 1188 1000 Weight 208 lb 12.444 oz 215 lb 9.793 oz General appearance: PRESENT: no acute distress, well-developed, well-nourished Head exam: PRESENT: atraumatic, normocephalic Eye exam: PRESENT: conjunctiva pink, EOMI, PERRLA. ABSENT: scleral icterus Ear exam: PRESENT: normal external ear exam Mouth exam: PRESENT: moist, tongue midline Neck exam: ABSENT: carotid bruit, JVD, lymphadenopathy, thyromegaly Respiratory exam: PRESENT: clear to auscultation anastasiya. ABSENT: rales, rhonchi, wheezes Cardiovascular exam: PRESENT: RRR. ABSENT: diastolic murmur, rubs, systolic murmur Pulses: PRESENT: normal dorsalis pedis pul GI/Abdominal exam: PRESENT: normal bowel sounds, soft. ABSENT: distended, guarding, mass, organolmegaly, rebound, tenderness Rectal exam: PRESENT: deferred Neurological exam: PRESENT: alert, awake, oriented to person, oriented to place, oriented to time, oriented to situation, CN II-XII grossly intact. ABSENT: motor sensory deficit Results Laboratory Results: 05/10/18 21:45 05/09/18 07:00 05/10/18 21:45 WBC 7.7 RBC 2.56 L Hgb 9.2 L Hct 25.5 L MCV 99 H MCH 36.1 H MCHC 36.3 H RDW 19.8 H Plt Count 387 Seg Neutrophils % Not Reportable Lymphocytes % Not Reportable Monocytes % Not Reportable Eosinophils % Not Reportable Basophils % Not Reportable Absolute Neutrophils Not Reportable Absolute Lymphocytes Not Reportable Absolute Monocytes Not Reportable Absolute Eosinophils Not Reportable Absolute Basophils Not Reportable Retic Count (auto) 6.76 H Absolute Retic 0.173 H Impressions: Chest X-Ray 05/08/18 07:00 IMPRESSION: NO CHANGE IN APPEARANCE OF THE CHEST. CARDIOMEGALY WITH MILD VASCULAR PROMINENCE. MILD BASILAR DENSITIES, ATELECTASIS VERSUS FAINT INFILTRATE, UNCHANGED. Qualifiers - * PATIENT BEING DISCHARGED WITH ANY OF THE FOLLOWING DIAGNOSIS: No
[2018-05-11 18:29] VITALS: BP 142/88
== END 2018-05-11 19:30 | disposition home or self-care (01) | DRG 812 ==
LOC: ER 01:12 → OBSVTOIN 06:17 → EH 06:17 → 4S 20:16
PROVIDERS: ADMIT Emergency Medicine; ATTEND Emergency Medicine
DX: D57.00 Hb-SS disease with crisis, unspecified (principal); J98.11 Atelectasis; M25.50 Pain in unspecified joint; F11.90 Opioid use, unspecified, uncomplicated; Z79.899 Other long term (current) drug therapy
CPT/HCPCS: 36415; 71045; 71046; 80048; 80053; 83615; 83735; 85025; 85027; 85045; 96361; 96372; 96374; 96375; 96376; 99285; J1170; J1200; J1652; J3490; J7030

== ENCOUNTER 2018-05-23 01:54 | Emergency (ER) | payer MEDICARE, OTHER ==
[2018-05-23] MEDS ORDERED: HYDROMORPHONE HCL INJ/PF 2 MG/ML AMPULE IV ONE ×3 (03:29→05:53)
[2018-05-23] MEDS ORDERED: DIPHENHYDRAMINE HCL 50 MG/ML VIAL IV ONE ×2 (03:29→05:53)
--- NOTE | 2018-05-23 03:43 | ER Document Report ---
ED General - General Chief Complaint: Knee Pain Stated Complaint: JOINT PAIN Time Seen by Provider: 05/23/18 03:20 Notes: Patient is a 37-year-old male with a history of sickle cell disease that comes to the emergency department for chief complaint of joint pain. He states that he believes it is the cold, he went out into the cold earlier tonight, went back inside, started hurting in his joints mainly in his hips and knees with a throbbing pain, states he could not sleep. He denies fever or chills, nausea vomiting, difficulty breathing or chest pain. He denies any other complaints. He is on current home medications including methadone and oxycodone. He states he has been doing better since a hospitalization approximately 1 month ago. TRAVEL OUTSIDE OF THE [place] IN LAST 30 DAYS: No - Related Data Allergies/Adverse Reactions: famotidine [From Pepcid] Allergy (Severe, Verified 04/18/18 04:48) Anaphylaxis ketorolac tromethamine [From Toradol] Allergy (Severe, Verified 04/18/18 04:48) levofloxacin [From Levaquin] Allergy (Severe, Verified 04/18/18 04:48) meperidine HCl [From Demerol] Allergy (Severe, Verified 04/18/18 04:48) morphine [Morphine] Allergy (Severe, Verified 04/18/18 04:48) tramadol HCl [From Ultram] Allergy (Severe, Verified 04/18/18 04:48) amoxicillin [Amoxicillin] Allergy (Verified 04/18/18 04:48) fentanyl [Fentanyl] Allergy (Verified 04/18/18 04:48) latex [Latex] Allergy (Verified 04/18/18 04:48) ondansetron HCl [From Zofran] Allergy (Verified 04/18/18 04:48) Pork/Porcine Containing Products Allergy (Unverified 04/30/18 14:57) Past Medical History - General Information source: Patient - Social History Smoking Status: Never Smoker Chew tobacco use (# tins/day): No Frequency of alcohol use: None Drug Abuse: None Lives with: Family Family History: Other - Sickle cell disease Patient has suicidal ideation: No Patient has homicidal ideation: No - Past Medical History Cardiac Medical History: Denies: Hx Atrial Fibrillation, Hx Congestive Heart Failure, Hx Coronary Artery Disease Pulmonary Medical History: Denies: Hx Bronchitis, Hx Tuberculosis Neurological Medical History: Reports: Hx Seizures. Denies: Hx Migraine Endocrine Medical History: Denies: Hx Diabetes Mellitus Type 1, Hx Diabetes Mellitus Type 2 Renal/ Medical History: Denies: Hx Peritoneal Dialysis GI Medical History: Denies: Hx Cirrhosis, Hx Hepatitis Musculoskeletal Medical History: Denies Hx Arthritis, Denies Hx Gout, Reports Hx Musculoskeletal Deformity - right hip avascular necrosis Skin Medical History: Denies Hx Eczema, Denies Hx Psoriasis Psychiatric Medical History: Denies: Hx Depression Infectious Medical History: Denies: Hx Hepatitis Past Surgical History: Reports: Hx Appendectomy, Hx Vascular Surgery - L port placement, Other - Port placement - Immunizations Immunizations up to date: Yes Hx Diphtheria, Pertussis, Tetanus Vaccination: Yes Hx Pneumococcal Vaccination: 02/20/11 Review of Systems - Review of Systems Constitutional: No symptoms reported EENT: No symptoms reported Cardiovascular: No symptoms reported Respiratory: No symptoms reported Gastrointestinal: No symptoms reported Genitourinary: No symptoms reported Male Genitourinary: No symptoms reported Musculoskeletal: See HPI Skin: No symptoms reported Hematologic/Lymphatic: No symptoms reported Neurological/Psychological: No symptoms reported Physical Exam - Vital signs Vitals: Temp Pulse Resp BP Pulse Ox 98.7 F 61 17 135/83 H 95 05/23/18 02:41 05/23/18 02:41 05/23/18 02:41 05/23/18 02:41 05/23/18 02:41 - Notes Notes: GENERAL: Alert, interacts well. No acute distress. HEAD: Normocephalic, atraumatic. EYES: Pupils equal, round, and reactive to light. Extraocular movements intact. ENT: Oral mucosa moist, tongue midline. Oropharynx unremarkable. Airway patent. Nares patent, no nasal septal hematoma, TM's intact. NECK: Full range of motion. Supple. Trachea midline. LUNGS: Clear to auscultation bilaterally, no wheezes, rales, or rhonchi. No respiratory distress. HEART: Regular rate and rhythm. No murmur ABDOMEN: Soft, non-tender. Non-distended. Bowel sounds present in all 4 quadrants. GENITOURINARY: Deferred EXTREMITIES: Moves all 4 extremities spontaneously. No edema, normal radial and dorsalis pedis pulses bilaterally. No cyanosis. BACK: no cervical, thoracic, lumbar midline tenderness. No saddle anesthesia, normal distal neurovascular exam. NEUROLOGICAL: Alert and oriented x3. Normal speech. [cranial nerves II through XII grossly intact]. PSYCH: Normal affect, normal mood. SKIN: Warm, dry, normal turgor. No rashes or lesions noted. Course - Re-evaluation Re-evalutation: Patient is nontoxic in appearance. Clear lungs, no hypoxia, no tachycardia, no fever. Patient was medicated for his symptoms of sickle cell pain. On reevaluation he is resting comfortably. He states he does feel improved. He is asking for an additional dose, states he does not feel like he needs to be admitted, states he wants to go home. CBC shows no leukocytosis, direct bilirubin is not severely elevated suggesting bad sickling, remaining evaluation is unremarkable. Patient was given additional dose, he will follow-up with his primary care, he states he will return if he worsens. Vital signs remained unremarkable. Stable at time of discharge. - Vital Signs Vital signs: Temp Pulse Resp BP Pulse Ox 98.7 F 61 18 141/96 H 100 05/23/18 02:41 05/23/18 02:41 05/23/18 06:01 05/23/18 06:01 05/23/18 06:01 - Laboratory Result Diagrams: 05/23/18 04:35 05/23/18 04:35 Laboratory results interpreted by me: 05/23/18 05/23/18 04:35 04:35 RBC 2.50 L Hgb 8.8 L Hct 25.2 L MCV 101 H MCH 35.1 H RDW 19.4 H Retic Count (auto) 11.07 H Absolute Retic 0.277 H Total Bilirubin 1.8 H ALT 19 L Discharge - Discharge Clinical Impression: Sickle cell crisis Joint pain Qualifiers: Joint pain location: unspecified Qualified Code(s): M25.50 - Pain in unspecified joint Condition: Stable Disposition: HOME, SELF-CARE Additional Instructions: Your labs did not show any new concerning finding at this time. Continue current medications at home, follow closely with your provider. Return if you worsen including fever, difficulty breathing, severe worsening pain, or any other concerning worsening symptoms.
[2018-05-23 04:51] LABS: ABSOLUTE RETICS # 0.277 10^6/uL (0.028-0.122); HEMATOCRIT 25.2 % (37.9-51.0); HEMOGLOBIN 8.8 g/dL (13.5-17.0); MEAN CORPUSCULAR HEMOGLOBIN 35.1 pg (27.0-33.4); MEAN CORPUSCULAR HGB CONC 34.9 g/dL (32.0-36.0); MEAN CORPUSCULAR VOLUME 101 fl (80-97); PLATELET COUNT 243 10^3/uL (150-450); RED CELL DISTRIBUTION WIDTH 19.4 % (11.5-14.0); RETICULOCYTE COUNT (AUTO) 11.07 % (0.66-2.85)
[2018-05-23 05:10] LABS: ALANINE AMINOTRANSFERASE 19 U/L (21-72); ALBUMIN 4.1 g/dL (3.5-5.0); ALKALINE PHOSPHATASE 66 U/L (38-126); ANION GAP 8 (5-19); ASPARTATE AMINO TRANSFERASE 28 U/L (17-59); BILIRUBIN,DIRECT 0.2 mg/dL (0.0-0.4); BILIRUBIN,TOTAL 1.8 mg/dL (0.2-1.3); BLOOD UREA NITROGEN 8 mg/dL (7-20); CALCIUM 8.8 mg/dL (8.4-10.2); CARBON DIOXIDE 29 mmol/L (22-30); CHLORIDE 107 mmol/L (98-107); GLUCOSE 98 mg/dL (75-110); POTASSIUM 3.8 mmol/L (3.6-5.0); SODIUM 143.7 mmol/L (137-145); TOTAL PROTEIN 7.4 g/dL (6.3-8.2)
[2018-05-23 05:22] LABS: ABSOLUTE LYMPHOCYTES# (MANUAL) 2.3 10^3/uL (0.5-4.7); ABSOLUTE MONOCYTES # (MANUAL) 0.8 10^3/uL (0.1-1.4); ABSOLUTE NEUTROPHILS# (MANUAL) 2.8 10^3/uL (1.7-8.2); BASOPHILS % (MANUAL) 0 % (0-2); EOSINOPHILS % (MANUAL) 3 % (0-6); LYMPHOCYTES % (MANUAL) 31 % (13-45); MONOCYTES % (MANUAL) 13 % (3-13); NUCLEATED RED BLOOD CELLS 4 /100 WBC (0); SEGMENTED NEUTROPHILS % (MAN) 46 % (42-78); TOTAL CELLS COUNTED 100
[2018-05-23 05:25] LABS: ANISOCYTOSIS 2+; OVALOCYTES 1+; POIKILOCYTOSIS 2+; POLYCHROMASIA 3+
[2018-05-23 05:26] LABS: HOWELL-JOLLY BODIES PRESENT; PLATELET COMMENT ADEQUATE; PLATELET GIANT PRESENT; SICKLE RED CELLS 2+; TARGET CELLS 1+
[2018-05-23 07:43] VITALS: BP 163/104
== END 2018-05-23 07:35 | disposition home or self-care (01) ==
LOC: ER 01:54
DX: D57.00 Hb-SS disease with crisis, unspecified (principal); M25.50 Pain in unspecified joint; M25.561 Pain in right knee; M25.562 Pain in left knee; M25.551 Pain in right hip; M25.552 Pain in left hip; Z79.899 Other long term (current) drug therapy
CPT/HCPCS: 36591; 96376; 99284; 96374; 96375; 36415; 85025; 85045; 80053; J1200; J1170

== ENCOUNTER 2018-05-27 04:03 | Emergency (ER) | payer MEDICARE, MEDICAID ==
[2018-05-27] MEDS ORDERED: HYDROMORPHONE HCL INJ/PF 2 MG/ML AMPULE IV ONE ×3 (04:36→07:17)
[2018-05-27] MEDS ORDERED: DIPHENHYDRAMINE HCL 50 MG/ML VIAL IV ONE ×3 (04:37→07:17)
[2018-05-27 05:39] LABS: ABSOLUTE RETICS # 0.259 10^6/uL (0.028-0.122); HEMATOCRIT 24.1 % (37.9-51.0); HEMOGLOBIN 8.5 g/dL (13.5-17.0); MEAN CORPUSCULAR HGB CONC 35.4 g/dL (32.0-36.0); MEAN CORPUSCULAR VOLUME 99 fl (80-97); PLATELET COUNT 233 10^3/uL (150-450); RED BLOOD COUNT 2.44 10^6/uL (4.35-5.55); RED CELL DISTRIBUTION WIDTH 20.2 % (11.5-14.0); RETICULOCYTE COUNT (AUTO) 10.64 % (0.66-2.85); WHITE BLOOD COUNT 6.9 10^3/uL (4.0-10.5)
--- NOTE | 2018-05-27 05:46 | RADIOLOGY REPORT (SQ) ---
EXAM DESCRIPTION: XR CHEST 1 VIEW COMPLETED DATE/TME: 05/27/2018 04:36 CLINICAL HISTORY: 37 years, Male, sickle cell crisis Comparison: May 08, 2018 FINDINGS: Interstitial opacities in both lung bases, similar to prior exam. No confluent pulmonary opacities. The cardiac silhouette remains stable in size. No pleural abnormalities. Mediport from a left IJ approach. IMPRESSION: No acute findings. No focal lung consolidation.
[2018-05-27 05:54] LABS: ABSOLUTE LYMPHOCYTES# (MANUAL) 2.2 10^3/uL (0.5-4.7); ABSOLUTE MONOCYTES # (MANUAL) 0.9 10^3/uL (0.1-1.4); ABSOLUTE NEUTROPHILS# (MANUAL) 3.8 10^3/uL (1.7-8.2); BASOPHILS % (MANUAL) 0 % (0-2); EOSINOPHILS % (MANUAL) 0 % (0-6); LYMPHOCYTES % (MANUAL) 32 % (13-45); MONOCYTES % (MANUAL) 13 % (3-13); NUCLEATED RED BLOOD CELLS 2 /100 WBC (0); SEGMENTED NEUTROPHILS % (MAN) 55 % (42-78); TOTAL CELLS COUNTED 100
[2018-05-27 05:55] LABS: ANISOCYTOSIS 3+; POLYCHROMASIA 3+; SICKLE RED CELLS 3+; TOXIC GRANULATION 2+
[2018-05-27 05:56] LABS: PLATELET COMMENT ADEQUATE
--- NOTE | 2018-05-27 05:56 | ER Document Report ---
ED General - General Chief Complaint: Abdominal Pain Stated Complaint: HEADACHE,STOMACH ACHE Time Seen by Provider: 05/27/18 04:28 Notes: Patient is a 37-year-old male, who presents to the emergency department with a chief complaint of a sickle cell crisis. He states that pain is knees and in his chest. He states this feels like his normal crisis. He also states that he has an associated headache with it, which he sometimes has. He normally takes oxycodone at home for his pain. He saw Dr. Medellin, his oncologist, earlier this week. Nothing makes the pain better. He took his last dose of pain medication about 2 hours prior to arrival. TRAVEL OUTSIDE OF THE [place] IN LAST 30 DAYS: No - Related Data Allergies/Adverse Reactions: famotidine [From Pepcid] Allergy (Severe, Verified 05/27/18 08:05) Anaphylaxis ketorolac tromethamine [From Toradol] Allergy (Severe, Verified 05/27/18 08:05) levofloxacin [From Levaquin] Allergy (Severe, Verified 05/27/18 08:05) meperidine HCl [From Demerol] Allergy (Severe, Verified 05/27/18 08:05) morphine [Morphine] Allergy (Severe, Verified 05/27/18 08:05) tramadol HCl [From Ultram] Allergy (Severe, Verified 05/27/18 08:05) amoxicillin [Amoxicillin] Allergy (Verified 05/27/18 08:05) fentanyl [Fentanyl] Allergy (Verified 05/27/18 08:05) latex [Latex] Allergy (Verified 05/27/18 08:05) ondansetron HCl [From Zofran] Allergy (Verified 05/27/18 08:05) Pork/Porcine Containing Products Allergy (Verified 05/27/18 08:05) Past Medical History - Social History Smoking Status: Never Smoker Family History: Other - Sickle cell disease Patient has suicidal ideation: No Patient has homicidal ideation: No - Past Medical History Cardiac Medical History: Denies: Hx Atrial Fibrillation, Hx Congestive Heart Failure, Hx Coronary Art sung Disease Pulmonary Medical History: Denies: Hx Bronchitis, Hx Tuberculosis Neurological Medical History: Reports: Hx Seizures. Denies: Hx Migraine Endocrine Medical History: Denies: Hx Diabetes Mellitus Type 1, Hx Diabetes Mellitus Type 2 Renal/ Medical History: Denies: Hx Peritoneal Dialysis GI Medical History: Denies: Hx Cirrhosis, Hx Hepatitis Musculoskeletal Medical History: Denies Hx Arthritis, Denies Hx Gout, Reports Hx Musculoskeletal Deformity - right hip avascular necrosis Skin Medical History: Denies Hx Eczema, Denies Hx Psoriasis Psychiatric Medical History: Denies: Hx Depression Infectious Medical History: Denies: Hx Hepatitis Past Surgical History: Reports: Hx Appendectomy, Hx Vascular Surgery - L port placement, Other - Port placement - Immunizations Immunizations up to date: Yes Hx Diphtheria, Pertussis, Tetanus Vaccination: Yes Hx Pneumococcal Vaccination: 02/20/11 Review of Systems - Review of Systems Notes: REVIEW OF SYSTEMS: CONSTITUTIONAL : Denies recent illness. Denies recent unintentional weight loss. Denies fever, chills, or sweats. EENT: Denies eye, ear, throat, or mouth pain, discharge, or symptoms. Denies nasal or sinus congestion. CARDIOVASCULAR: See HPI RESPIRATORY: Denies shortness of breath, cough, congestion, difficulty felipa athing, or wheezing. GASTROINTESTINAL: Denies nausea, vomiting, and diarrhea. Denies abdominal pain. Denies constipation. GENITOURINARY: Denies difficulty urinating, burning, blood in urine, urgency or frequency. MUSCULOSKELETAL: See HPI SKIN: Denies rash, itchiness, or lesions HEMATOLOGIC : Denies easy bruising or bleeding. LYMPHATIC: Denies swollen, painful, enlarged glands. NEUROLOGICAL: See HPI PSYCHIATRIC: Denies stress, anxiety, alteration in sleep patterns, or depression. All other systems reviewed and negative. Physical Exam - Vital signs Vitals: Temp Pulse Resp BP Pulse Ox 98.1 F 65 18 137/89 H 93 05/27/18 04:09 05/27/18 04:09 05/27/18 04:09 05/27/18 04:09 05/27/18 04:09 - Notes Notes: PHYSICAL EXAMINATION: GENERAL: Appears well, healthy, well-nourished, no acute distress. HEAD: Normocephalic, atraumatic. EYES: PERRL, conjunctiva normal, all extraocular movements intact, sclera nonicteric ENT: Moist mucous membranes. NECK: Supple, no noticeable swelling, redness, rash. Normal range of motion. LUNGS: Equal breath sounds bilaterally and clear to auscultation. No wheezes rales or rhonchi. CARDIOVASCULAR: S1-S2, regular rate, regular rhythm. Radial pulses 2+, normal. ABDOMEN: Normoactive bowel sounds. Soft, nontender, no guarding, no rebound tenderness, and no masses palpated. EXTREMITIES: Normal strength and range of motion, no pitting or edema. No cyanosis. NEUROLOGICAL: Moves all extremities upon command. Strength 5/5 in all extremities. PSYCH: Normal mood, normal affect. SKIN: Warm, dry. No rash, lesions, ulcerations noted. Normal skin turgor. Course - Re-evaluation Re-evalutation: 05/27/18 04:10 Since the patient states that this is his normal sickle cell pain, he will be receive his normal Benadryl and Dilaudid for pain control. He will receive 3 doses here in the emergency department. If he has no relief from his normal emergency department pain regimen, he will be admitted to the hospitalist service for pain management. 05/27/18 05:50 I have reevaluated the patient and he states that he is still in pain. I will order another dose of Dilaudid and Benadryl for him. His chest x-ray is normal. His CBC and reticulocyte count are not changed from baseline. 05/27/18 07:15 The patient states that his pain is getting better, but states that he feels he needs the last dose of Dilaudid. His next dose of Dilaudid and Benadryl will be ordered. If he has relief of his symptoms, he is stable for discharge. 05/27/18 07:57 Patient states that he does feel better and received his last dose of Dilaudid and Benadryl just recently. He states that he feels a lot better. Verbal discharge instructions were given to the patient. They verbalized understanding. They are stable for discharge. It is the end of my shift and report has been given to RICHELLE Cook. He will take over care if the patient has any concerns before he is discharged from the emergency department. Documentation was completed using voice recognition software, therefore there may be some unintended grammatical or punctual errors. - Vital Signs Vital signs: Temp Pulse Resp BP Pulse Ox 98.6 F 99 18 140/97 H 98 05/27/18 08:14 05/27/18 08:14 05/27/18 08:14 05/27/18 08:14 05/27/18 07:01 - Laboratory Result Diagrams: 05/27/18 05:17 05/27/18 05:17 Laboratory results interpreted by me: 05/27/18 05/27/18 05:17 05:17 RBC 2.44 L Hgb 8.5 L Hct 24.1 L MCV 99 H MCH 35.0 H RDW 20.2 H Retic Count (auto) 10.64 H Absolute Retic 0.259 H Potassium 3.4 L Calcium 8.2 L Total Bilirubin 1.6 H Discharge - Discharge Clinical Impression: Sickle cell crisis, Opiate dependence, continuous Sickle cell anemia Qualifiers: Sickle-cell associated disorders: with unspecified crisis Qualified Code(s): D57.00 - Hb-SS disease with crisis, unspecified Joint pain Qualifiers: Joint pain location: knee Laterality: bilateral Qualified Code(s): M25.561 - Pain in right knee Condition: Stable Disposition: HOME, SELF-CARE Additional Instructions: You were seen in the emergency department today for sickle cell pain crisis. Please follow-up with your photoengraving etcher in regards to this visit. If you have worsening pain, fever greater than 100.4, shortness of breath, excessive vomiting, or other symptoms that are concerning to you, please return to the emergency department.
[2018-05-27 07:07] LABS: ALANINE AMINOTRANSFERASE 28 U/L (21-72); ALBUMIN 3.7 g/dL (3.5-5.0); ALKALINE PHOSPHATASE 67 U/L (38-126); ANION GAP 8 (5-19); ASPARTATE AMINO TRANSFERASE 29 U/L (17-59); BILIRUBIN,DIRECT 0.4 mg/dL (0.0-0.4); BILIRUBIN,TOTAL 1.6 mg/dL (0.2-1.3); BLOOD UREA NITROGEN 12 mg/dL (7-20); CALCIUM 8.2 mg/dL (8.4-10.2); CARBON DIOXIDE 29 mmol/L (22-30); CHLORIDE 106 mmol/L (98-107); GLUCOSE 99 mg/dL (75-110); POTASSIUM 3.4 mmol/L (3.6-5.0); SODIUM 142.5 mmol/L (137-145); TOTAL PROTEIN 6.9 g/dL (6.3-8.2)
[2018-05-27] MEDS ORDERED: POTASSIUM CHLORIDE 10 MEQ CAPSULE.ER PO ONE (07:18)
[2018-05-27 08:27] VITALS: BP 140/97
== END 2018-05-27 08:27 | disposition home or self-care (01) ==
LOC: ER 04:03
DX: D57.00 Hb-SS disease with crisis, unspecified (principal); F11.20 Opioid dependence, uncomplicated; R07.9 Chest pain, unspecified; M25.561 Pain in right knee; M25.562 Pain in left knee; R51 Headache; Z88.8 Allergy status to other drugs, medicaments and biological substances; Z88.1 Allergy status to other antibiotic agents; Z88.5 Allergy status to narcotic agent; Z88.0 Allergy status to penicillin; Z91.040 Latex allergy status; Z91.018 Allergy to other foods
CPT/HCPCS: 36591; 96376; 99284; 96374; 96375; 36415; 85025; 85045; 80053; 71045; J1200; J1170; A9270

== ENCOUNTER 2018-06-03 03:20 | Emergency (ER) | payer MEDICARE, MEDICAID ==
[2018-06-03] MEDS ORDERED: NORMAL SALINE 1000 ML 1,000 ML IV ONE (03:23)
[2018-06-03] MEDS ORDERED: HYDROMORPHONE HCL INJ/PF 2 MG/ML AMPULE IV ONE (03:56)
[2018-06-03] MEDS ORDERED: DIPHENHYDRAMINE HCL 50 MG/ML VIAL IV ONE ×2 (03:56→06:15)
--- NOTE | 2018-06-03 03:58 | ER Document Report ---
ED General - General Chief Complaint: Sickle Cell Crisis Stated Complaint: PAIN ALL OVER Time Seen by Provider: 06/03/18 03:48 Notes: Patient is a 37-year-old male that comes to the emergency department for chief complaint of joint pain. He has a history of sickle cell anemia, he states that for the past 3 days if legs have been aching consistently, tonight it was too painful and he could not sleep. He denies fever chills, difficulty breathing, chest pain, abdominal pain, focal numbness or weakness, headache. He is taking his home medications for pain without relief. He states he saw his community engagement manager Dr. Medellin within the past 2 weeks and he said everything was good at the time. TRAVEL OUTSIDE OF THE [place] IN LAST 30 DAYS: No - Related Data Allergies/Adverse Reactions: famotidine [From Pepcid] Allergy (Severe, Verified 06/03/18 03:28) Anaphylaxis ketorolac tromethamine [From Toradol] Allergy (Severe, Verified 06/03/18 03:28) levofloxacin [From Levaquin] Allergy (Severe, Verified 06/03/18 03:28) meperidine HCl [From Demerol] Allergy (Severe, Verified 06/03/18 03:28) morphine [Morphine] Allergy (Severe, Verified 06/03/18 03:28) tramadol HCl [From Ultram] Allergy (Severe, Verified 06/03/18 03:28) amoxicillin [Amoxicillin] Allergy (Verified 06/03/18 03:28) fentanyl [Fentanyl] Allergy (Verified 06/03/18 03:28) latex [Latex] Allergy (Verified 06/03/18 03:28) ondansetron HCl [From Zofran] Allergy (Verified 06/03/18 03:28) Pork/Porcine Containing Products Allergy (Verified 06/03/18 03:28) Past Medical History - General Information source: Patient - Social History Smoking Status: Never Smoker Frequency of alcohol use: None Drug Abuse: None Lives with: Family Family History: Other - Sickle cell disease - Past Medical History Cardiac Medical History: Denies: Hx Atrial Fibrillation, Hx Congestive Heart Failure, Hx Coronary Artery Disease Pulmonary Medical History: Denies: Hx Bronchitis, Hx Tuberculosis Neurological Medical History: Reports: Hx Seizures. Denies: Hx Migraine Endocrine Medical History: Denies: Hx Diabetes Mellitus Type 1, Hx Diabetes Mellitus Type 2 Renal/ Medical History: Denies: Hx Peritoneal Dialysis GI Medical History: Denies: Hx Cirrhosis, Hx Hepatitis Musculoskeletal Medical History: Denies Hx Arthritis, Denies Hx Gout, Reports Hx Musculoskeletal Deformity - right hip avascular necrosis Skin Medical History: Denies Hx Eczema, Denies Hx Psoriasis Psychiatric Medical History: Denies: Hx Depression Infectious Medical History: Denies: Hx Hepatitis Past Surgical History: Reports: Hx Appendectomy, Hx Vascular Surgery - L port placement, Other - Port placement - Immunizations Immunizations up to date: Yes Hx Diphtheria, Pertussis, Tetanus Vaccination: Yes Hx Pneumococcal Vaccination: 02/20/11 Review of Systems - Review of Systems Constitutional: No symptoms reported EENT: No symptoms reported Cardiovascular: No symptoms reported Respiratory: No symptoms reported Gastrointestinal: No symptoms reported Genitourinary: No symptoms reported Male Genitourinary: No symptoms reported Musculoskeletal: See HPI Skin: No symptoms reported Hematologic/Lymphatic: No symptoms reported Neurological/Psychological: No symptoms reported Physical Exam - Vital signs Vitals: Pulse Ox 98 06/03/18 03:56 - Notes Notes: GENERAL: Alert, interacts well. No acute distress. HEAD: Normocephalic, atraumatic. EYES: Pupils equal, round, and reactive to light. Extraocular movements intact. ENT: Oral mucosa moist, tongue midline. Oropharynx unremarkable. Airway patent. Nares patent, no nasal septal hematoma, TM's intact. NECK: Full range of motion. Supple. Trachea midline. LUNGS: Clear to auscultation bilaterally, no wheezes, rales, or rhonchi. No respiratory distress. HEART: Regular rate and rhythm. No murmur ABDOMEN: Soft, non-tender. Non-distended. Bowel sounds present in all 4 qu adrants. GENITOURINARY: Deferred EXTREMITIES: Moves all 4 extremities spontaneously. No edema, normal radial and dorsalis pedis pulses bilaterally. No cyanosis. BACK: no cervical, thoracic, lumbar midline tenderness. No saddle anesthesia, normal distal neurovascular exam. NEUROLOGICAL: Alert and oriented x3. Normal speech. [cranial nerves II through XII grossly intact]. PSYCH: Normal affect, normal mood. SKIN: Warm, dry, normal turgor. No rashes or lesions noted. Course - Re-evaluation Re-evalutation: Patient does not appear to be in any distress. He is not tachycardic, he is not hypoxic. Physical examination unremarkable. CBC shows anemia without significant change from prior, reticulocyte count is slightly lower than prior. Indirect bilirubin is mildly elevated but not significantly changed from prior. No symptoms or vital signs suggesting acute chest syndrome. Patient reevaluated multiple times while receiving medications. Initially improved, then he significantly improved. I discussed admission versus going home, patient states he would prefer to be discharged and follow-up with his community engagement manager. Discussed return precautions. Patient states understanding and agreement. - Vital Signs Vital signs: Temp Pulse Resp BP Pulse Ox 139/92 H 98 06/03/18 04:00 06/03/18 04:00 - Laboratory Result Diagrams: 06/03/18 04:00 06/03/18 04:00 Laboratory results interpreted by me: 06/03/18 06/03/18 04:00 04:00 RBC 2.80 L Hgb 9.7 L Hct 28.0 L MCV 100 H MCH 34.8 H RDW 19.1 H Retic Count (auto) 8.31 H Absolute Retic 0.232 H Total Bilirubin 2.1 H Discharge - Discharge Clinical Impression: Sickle cell crisis Joint pain Qualifiers: Joint pain location: unspecified Qualified Code(s): M25.50 - Pain in unspecified joint Condition: Stable Disposition: HOME, SELF-CARE Additional Instructions: Continue your home pain medications. Follow-up closely with your community engagement manager Dr. Medellin for additional evaluation and management. Return if you worsen including increased pain, difficulty breathing, fever, or any other concerning or worsening symptoms.
[2018-06-03 04:17] LABS: ABSOLUTE RETICS # 0.232 10^6/uL (0.028-0.122); HEMOGLOBIN 9.7 g/dL (13.5-17.0); MEAN CORPUSCULAR HEMOGLOBIN 34.8 pg (27.0-33.4); MEAN CORPUSCULAR HGB CONC 34.8 g/dL (32.0-36.0); MEAN CORPUSCULAR VOLUME 100 fl (80-97); PLATELET COUNT 324 10^3/uL (150-450); RED CELL DISTRIBUTION WIDTH 19.1 % (11.5-14.0); RETICULOCYTE COUNT (AUTO) 8.31 % (0.66-2.85); WHITE BLOOD COUNT 7.4 10^3/uL (4.0-10.5)
[2018-06-03 04:29] LABS: ABSOLUTE LYMPHOCYTES# (MANUAL) 1.4 10^3/uL (0.5-4.7); ABSOLUTE MONOCYTES # (MANUAL) 0.7 10^3/uL (0.1-1.4); ABSOLUTE NEUTROPHILS# (MANUAL) 5.3 10^3/uL (1.7-8.2); ALANINE AMINOTRANSFERASE 28 U/L (21-72); ALBUMIN 4.3 g/dL (3.5-5.0); ALKALINE PHOSPHATASE 61 U/L (38-126); ANION GAP 8 (5-19); ASPARTATE AMINO TRANSFERASE 34 U/L (17-59); BASOPHILS % (MANUAL) 0 % (0-2); BILIRUBIN,DIRECT 0.3 mg/dL (0.0-0.4); BILIRUBIN,TOTAL 2.1 mg/dL (0.2-1.3); BLOOD UREA NITROGEN 10 mg/dL (7-20); CALCIUM 8.9 mg/dL (8.4-10.2); CARBON DIOXIDE 28 mmol/L (22-30); CHLORIDE 106 mmol/L (98-107); EOSINOPHILS % (MANUAL) 0 % (0-6); GLUCOSE 84 mg/dL (75-110); LYMPHOCYTES % (MANUAL) 19 % (13-45); MONOCYTES % (MANUAL) 10 % (3-13); NUCLEATED RED BLOOD CELLS 2 /100 WBC (0); POTASSIUM 4.4 mmol/L (3.6-5.0); SEGMENTED NEUTROPHILS % (MAN) 71 % (42-78); SODIUM 142.2 mmol/L (137-145); TOTAL CELLS COUNTED 100; TOTAL PROTEIN 7.8 g/dL (6.3-8.2)
[2018-06-03 04:31] LABS: ANISOCYTOSIS 3+; PLATELET COMMENT ADEQUATE; POLYCHROMASIA 3+; SICKLE RED CELLS 3+
[2018-06-03] MEDS: HYDROMORPHONE HCL INJ/PF 2 MG/ML AMPULE IV PRN ×2 (05:26→06:34)
[2018-06-03 06:55] VITALS: BP 141/86
== END 2018-06-03 07:00 | disposition home or self-care (01) ==
LOC: ER 03:20
DX: D57.00 Hb-SS disease with crisis, unspecified (principal); M25.50 Pain in unspecified joint; Z88.8 Allergy status to other drugs, medicaments and biological substances; Z88.1 Allergy status to other antibiotic agents; Z88.5 Allergy status to narcotic agent; Z88.0 Allergy status to penicillin; Z91.040 Latex allergy status; Z91.018 Allergy to other foods
CPT/HCPCS: 36591; 96376; 99284; 96361; 96374; 96375; 36415; 85025; 85045; 80053; J1200; J1170; J7030

== ENCOUNTER 2018-06-06 01:54 | Emergency (ER) | payer MEDICARE, MEDICAID ==
[2018-06-06] MEDS ORDERED: HYDROMORPHONE HCL INJ/PF 2 MG/ML AMPULE IV PRN (02:19)
[2018-06-06] MEDS ORDERED: DIPHENHYDRAMINE HCL 50 MG/ML VIAL IV ONE ×2 (02:20→05:08)
[2018-06-06] MEDS ORDERED: NORMAL SALINE 1000 ML 1,000 ML IV ONE (02:20)
[2018-06-06 03:07] LABS: HEMATOCRIT 27.6 % (37.9-51.0); HEMOGLOBIN 9.5 g/dL (13.5-17.0); MEAN CORPUSCULAR HEMOGLOBIN 33.5 pg (27.0-33.4); MEAN CORPUSCULAR HGB CONC 34.4 g/dL (32.0-36.0); MEAN CORPUSCULAR VOLUME 98 fl (80-97); PLATELET COUNT 333 10^3/uL (150-450); RED BLOOD COUNT 2.83 10^6/uL (4.35-5.55); RED CELL DISTRIBUTION WIDTH 18.4 % (11.5-14.0); RETICULOCYTE COUNT (AUTO) 7.09 % (0.66-2.85); WHITE BLOOD COUNT 5.5 10^3/uL (4.0-10.5)
--- NOTE | 2018-06-06 03:12 | RADIOLOGY REPORT (SQ) ---
EXAM DESCRIPTION: XR CHEST 1 VIEW COMPLETED DATE/TME: 06/06/2018 02:19 CLINICAL HISTORY: 37 years, Male, sob COMPARISON: 05/27/2018 NUMBER OF VIEWS: One TECHNIQUE: AP view the chest LIMITATIONS: None. FINDINGS: There are grossly stable bibasilar interstitial opacities. There is no focal consolidation. The heart is mildly enlarged. There is no pneumothorax or pleural effusion. The left chest wall port terminates within the SVC. IMPRESSION: No significant change compared to the prior exam copyright 2011 [employer]- All Rights Reserved
--- NOTE | 2018-06-06 03:17 | ER Document Report ---
ED General - General Chief Complaint: Sickle Cell Crisis Stated Complaint: WEAKNESS,SHORTESS OF BREATH Time Seen by Provider: 06/06/18 02:19 Notes: Patient is a 37-year-old male with a past medical history of sickle cell anemia and chronic pain with opiate dependence who presents with diffuse body pain most localized to his right hip and bilateral knees. Patient describes this as a throbbing, severe, constant pain. He states that he is tried his home pain medications with minimal to no relief. Nothing worsens his symptoms. States that the he feels his overall pain has gotten progressively worse in the past several years. Contacted his oncologist office and was encouraged to come to the emergency room for assessment. Patient states that he is also felt more winded than normal but denies distinct chest pain or ongoing shortness of breath. Has had similar symptoms many times in the past with his sickle cell anemia. TRAVEL OUTSIDE OF THE [place] IN LAST 30 DAYS: No - Related Data Allergies/Adverse Reactions: famotidine [From Pepcid] Allergy (Severe, Verified 06/03/18 03:28) Anaphylaxis ketorolac tromethamine [From Toradol] Allergy (Severe, Verified 06/03/18 03:28) levofloxacin [From Levaquin] Allergy (Severe, Verified 06/03/18 03:28) meperidine HCl [From Demerol] Allergy (Severe, Verified 06/03/18 03:28) morphine [Morphine] Allergy (Severe, Verified 06/03/18 03:28) tramadol HCl [From Ultram] Allergy (Severe, Verified 06/03/18 03:28) amoxicillin [Amoxicillin] Allergy (Verified 06/03/18 03:28) fentanyl [Fentanyl] Allergy (Verified 06/03/18 03:28) latex [Latex] Allergy (Verified 06/03/18 03:28) ondansetron HCl [From Zofran] Allergy (Verified 06/03/18 03:28) Pork/Porcine Containing Products Allergy (Verified 06/03/18 03:28) Past Medical History - General Information source: Patient - Social History Smoking Status: Never Smoker Frequency of alcohol use: None Drug Abuse: None Lives with: Family Family History: Other - Sickle cell disease - Past Medical History Cardiac Medical History: Denies: Hx Atrial Fibrillation, Hx Congestive Heart Failure, Hx Coronary Artery Disease Pulmonary Medical History: Denies: Hx Bronchitis, Hx Tuberculosis Neurological Medical History: Reports: Hx Seizures. Denies: Hx Migraine Endocrine Medical History: Denies: Hx Diabetes Mellitus Type 1, Hx Diabetes Mellitus Type 2 Renal/ Medical History: Denies: Hx Peritoneal Dialysis GI Medical History: Denies: Hx Cirrhosis, Hx Hepatitis Musculoskeletal Medical History: Denies Hx Arthritis, Denies Hx Gout, Reports Hx Musculoskeletal Deformity - right hip avascular necrosis Skin Medical History: Denies Hx Eczema, Denies Hx Psoriasis Psychiatric Medical History: Denies: Hx Depression Infectious Medical History: Denies: Hx Hepatitis Past Surgical History: Reports: Hx Appendectomy, Hx Vascular Surgery - L port placement, Other - Port placement - Immunizations Immunizations up to date: Yes Hx Diphtheria, Pertussis, Tetanus Vaccination: Yes Hx Pneumococcal Vaccination: 02/20/11 Review of Systems - Review of Systems Notes: Constitutional: Negative for fever. HENT: Negative for sore throat. Eyes: Negative for visual changes. Cardiovascular: Negative for chest pain. Respiratory: Positive for shortness of breath. Gastrointestinal: Negative for abdominal pain, vomiting or diarrhea. Genitourinary: Negative for dysuria. Musculoskeletal: Positive for right hip pain, bilateral knee pain, diffuse musculoskeletal discomfort Skin: Negative for rash. Neurological: Negative for headaches, weakness or numbness. 10 point ROS negative except as marked above and in HPI. Physical Exam - Vital signs Vitals: Temp Pulse Resp BP Pulse Ox 98.4 F 58 L 14 134/81 H 96 06/06/18 02:02 06/06/18 02:02 06/06/18 02:02 06/06/18 02:02 06/06/18 02:02 Interpretation: Bradycardic Notes: PHYSICAL EXAMINATION: GENERAL: Well-appearing, well-nourished and in no acute distress. HEAD: Atraumatic, normocephalic. EYES: Pupils equal round and reactive to light, extraocular movements intact, sclera anicteric, conjunctiva are normal. ENT: nares patent, oropharynx clear without exudates. Moist mucous membranes. NECK: Normal range of motion, supple without lymphadenopathy LUNGS: Breath sounds clear to auscultation bilaterally and equal. No wheezes rales or rhonchi. HEART: Regular rate and rhythm without murmurs ABDOMEN: Soft, nontender, normoactive bowel sounds. No guarding, no rebound. No masses appreciated. EXTREMITIES: Normal range of motion, no pitting or edema. No cyanosis. NEUROLOGICAL: No focal neurological deficits. Moves all extremities spontaneously and on command. PSYCH: Normal mood, normal affect. SKIN: Warm, Dry, normal turgor, no rashes or lesions noted. Course - Re-evaluation Re-evalutation: 06/06/18 03:17 Presentation is most consistent with an uncomplicated sickle cell pain crisis. Patient has no evidence of an aplastic crisis on labs. Chest x-ray and vitals are not consistent with acute chest syndrome. We did obtain x-rays of the right hip and bilateral knees at the patient's request as these areas have been much more painful over the past several months. No acute findings noted. Vitals have remained within normal limits here in the emergency department. Patient's pain has been able to be controlled using IV analgesia. The patient is a greeable to discharge home at this time. I recommended that they follow closely with their primary director strategic planning. Return precautions have been reviewed and discussed and patient has verbalized indications to return to the emergency department. - Vital Signs Vital signs: Temp Pulse Resp BP Pulse Ox 98.4 F 58 L 14 134/81 H 96 06/06/18 02:02 06/06/18 02:02 06/06/18 02:02 06/06/18 02:02 06/06/18 02:02 - Laboratory Result Diagrams: 06/06/18 02:53 06/06/18 02:53 Laboratory results interpreted by me: 06/06/18 06/06/18 02:53 02:53 RBC 2.83 L Hgb 9.5 L Hct 27.6 L MCV 98 H MCH 33.5 H RDW 18.4 H Seg Neuts % (Manual) 37 L Monocytes % (Manual) 22 H Retic Count (auto) 7.09 H Absolute Retic 0.200 H Chloride 111 H Creatinine 0.48 L Calcium 7.8 L - Diagnostic Test Radiology reviewed: Image reviewed, Reports reviewed Radiology results interpreted by me: 06/06/18 04:01 Chest x-ray: No acute infiltrate or pneumothorax - EKG Interpretation by Me Additional EKG results interpreted by me: 06/06/18 04:02 Sinus rhythm, rate 62. No ST elevations or depressions. QTC is 439. Discharge - Discharge Clinical Impression: Sickle cell crisis Joint pain Qualifiers: Joint pain location: unspecified Qualified Code(s): M25.50 - Pain in unspecified joint Avascular necrosis of hip Qualifiers: Laterality: right Qualified Code(s): M87.051 - Idiopathic aseptic necrosis of right femur Additional Instructions: You were seen today for sickle cell pain crisis. Please follow-up with your director strategic planning. Returning to the ED if you have worsening pain, fever greater than 100.4, shortness of breath, persistent vomiting, or any other symptoms that are concerning to you.
[2018-06-06 03:20] LABS: ANION GAP 7 (5-19); BLOOD UREA NITROGEN 9 mg/dL (7-20); CALCIUM 7.8 mg/dL (8.4-10.2); CARBON DIOXIDE 25 mmol/L (22-30); CHLORIDE 111 mmol/L (98-107); GLUCOSE 95 mg/dL (75-110); POTASSIUM 3.7 mmol/L (3.6-5.0); SODIUM 143.2 mmol/L (137-145)
[2018-06-06 03:23] LABS: ABSOLUTE MONOCYTES # (MANUAL) 1.2 10^3/uL (0.1-1.4); BASOPHILS % (MANUAL) 0 % (0-2); EOSINOPHILS % (MANUAL) 4 % (0-6); LYMPHOCYTES % (MANUAL) 34 % (13-45); MONOCYTES % (MANUAL) 22 % (3-13); NUCLEATED RED BLOOD CELLS 1 /100 WBC (0); SEGMENTED NEUTROPHILS % (MAN) 37 % (42-78); TOTAL CELLS COUNTED 100
[2018-06-06 03:25] LABS: OVALOCYTES SLIGHT; SICKLE RED CELLS 1+
[2018-06-06 03:26] LABS: ANISOCYTOSIS 2+; PLATELET COMMENT ADEQUATE; POIKILOCYTOSIS 1+; POLYCHROMASIA 1+; TARGET CELLS 1+
--- NOTE | 2018-06-06 04:04 | RADIOLOGY REPORT (SQ) ---
CLINICAL HISTORY: scc joint pain COMPARISON: None. TECHNIQUE: XR HIP 2 OR MORE VIEWS 06/06/2018 3:16 AM EXOTIC DANCER FINDINGS: There is no fracture. There is mild narrowing of the left hip joint. Soft tissues are unremarkable. There are sclerotic changes of the right femoral head. IMPRESSION: Sclerotic changes of the right femoral head. This could be secondary to avascular necrosis.
[2018-06-06] MEDS: HYDROMORPHONE HCL INJ/PF 2 MG/ML AMPULE IV PRN ×2 (04:06→05:25)
--- NOTE | 2018-06-06 04:10 | RADIOLOGY REPORT (SQ) ---
CLINICAL HISTORY: scc joint pain COMPARISON: None. TECHNIQUE: XR KNEE 3 VIEWS 06/06/2018 3:16 AM PRINTED PRODUCTS ASSEMBLER FINDINGS: There is no fracture. Joint spaces are preserved. Soft tissues are unremarkable. IMPRESSION: No acute osseous findings.
--- NOTE | 2018-06-06 04:17 | RADIOLOGY REPORT (SQ) ---
CLINICAL HISTORY: scc joint pain COMPARISON: None. TECHNIQUE: XR KNEE 3 VIEWS 06/06/2018 3:16 AM BANANA GRADER FINDINGS: There is no fracture. Joint spaces are preserved. Soft tissues are unremarkable. IMPRESSION: No acute osseous findings.
[2018-06-06 06:04] VITALS: BP 135/88
--- NOTE | 2018-06-06 08:58 | EKG REPORT ---
SEVERITY:- ABNORMAL ECG - SINUS RHYTHM PROBABLE LEFT ATRIAL ABNORMALITY CONSIDER ANTEROSEPTAL INFARCT : Confirmed by: Zoya Davila MD 06-Jun-2018 08:57:29
== END 2018-06-06 06:34 | disposition home or self-care (01) ==
LOC: ER 01:54
DX: D57.00 Hb-SS disease with crisis, unspecified (principal); M87.051 Idiopathic aseptic necrosis of right femur; G89.29 Other chronic pain; F11.20 Opioid dependence, uncomplicated; M25.561 Pain in right knee; M25.562 Pain in left knee; M25.551 Pain in right hip; R06.02 Shortness of breath; Z88.8 Allergy status to other drugs, medicaments and biological substances; Z88.1 Allergy status to other antibiotic agents; Z88.5 Allergy status to narcotic agent; Z88.0 Allergy status to penicillin; Z91.040 Latex allergy status; Z91.018 Allergy to other foods
CPT/HCPCS: 93005; 36591; 96376; 99284; 96361; 96374; 96375; 36415; 85025; 85045; 80048; 84484; 71045; 73502; 73562 ×2; 93010; J1200; J1170; J7030

== ENCOUNTER 2018-06-09 06:34 | Emergency (ER) | payer MEDICARE, MEDICAID ==
[2018-06-09] MEDS ORDERED: NORMAL SALINE 1000 ML 1,000 ML IV ONE (06:55)
[2018-06-09] MEDS ORDERED: DIPHENHYDRAMINE HCL 50 MG/ML VIAL IV ONE ×2 (06:58→11:22)
[2018-06-09] MEDS ORDERED: HYDROMORPHONE HCL INJ/PF 2 MG/ML AMPULE IV ONE ×3 (06:58→11:22)
--- NOTE | 2018-06-09 07:02 | ER Document Report ---
ED General Pain - General Chief Complaint: Sickle Cell Crisis Stated Complaint: SICKLE CELL PAIN Time Seen by Provider: 06/09/18 06:52 Notes: 37-year-old male with a history of sickle cell anemia / chronic pain with opiate dependence who presents with diffuse body pain most localized to his right hip and bilateral knees. Patient describes this as a throbbing, severe, constant pain. He states that he is tried his home pain medications - Dilaudid with minimal to no relief. Movement worsens his symptoms. Describes the pain as aching and severe consistent with his usual chronic pain. States he went to get up to work he felt that the cold temperatures this morning triggered his sickle cell. He denies any fever chills cough or sore throat. Denies nausea vomiting diarrhea TRAVEL OUTSIDE OF THE [place] IN LAST 30 DAYS: No - Related Data Allergies/Adverse Reactions: famotidine [From Pepcid] Allergy (Severe, Verified 06/03/18 03:28) Anaphylaxis ketorolac tromethamine [From Toradol] Allergy (Severe, Verified 06/03/18 03:28) levofloxacin [From Levaquin] Allergy (Severe, Verified 06/03/18 03:28) meperidine HCl [From Demerol] Allergy (Severe, Verified 06/03/18 03:28) morphine [Morphine] Allergy (Severe, Verified 06/03/18 03:28) tramadol HCl [From Ultram] Allergy (Severe, Verified 06/03/18 03:28) amoxicillin [Amoxicillin] Allergy (Verified 06/03/18 03:28) fentanyl [Fentanyl] Allergy (Verified 06/03/18 03:28) latex [Latex] Allergy (Verified 06/03/18 03:28) ondansetron HCl [From Zofran] Allergy (Verified 06/03/18 03:28) Pork/Porcine Containing Products Allergy (Verified 06/03/18 03:28) Past Medical History - Social History Smoking Status: Unknown if Ever Smoked Family History: Other - Sickle cell disease - Past Medical History Cardiac Medical History: Denies: Hx Atrial Fibrillation, Hx Congestive Heart Failure, Hx Coronary Artery Disease Pulmonary Medical History: Denies: Hx Bronchitis, Hx Tuberculosis Neurological Medical History: Reports: Hx Seizures. Denies: Hx Migraine Endocrine Medical History: Denies: Hx Diabetes Mellitus Type 1, Hx Diabetes Mellitus Type 2 Renal/ Medical History: Denies: Hx Peritoneal Dialysis GI Medical History: Denies: Hx Cirrhosis, Hx Hepatitis Musculoskeletal Medical History: Denies Hx Arthritis, Denies Hx Gout, Reports Hx Musculoskeletal Deformity - right hip avascular necrosis Skin Medical History: Denies Hx Eczema, Denies Hx Psoriasis Psychiatric Medical History: Denies: Hx Depression Infectious Medical History: Denies: Hx Hepatitis Past Surgical History: Reports: Hx Appendectomy, Hx Vascular Surgery - L port placement, Other - Port placement - Immunizations Immunizations up to date: Yes Hx Diphtheria, Pertussis, Tetanus Vaccination: Yes Hx Pneumococcal Vaccination: 02/20/11 Review of Systems - Review of Systems Constitutional: denies: Chills, Fever Respiratory: denies: Cough Gastrointestinal: denies: Abdomen distended, Abdominal pain, Diarrhea, Nausea, Vomiting Genitourinary: denies: Dysuria, Hematuria, Urgency Musculoskeletal: Joint pain, Muscle pain Skin: denies: Rash Neurological/Psychological: denies: Headaches -: Yes All other systems reviewed and negative Physical Exam - Vital signs Vitals: Temp Pulse Resp BP Pulse Ox 98.2 F 77 18 131/84 H 95 06/09/18 06:39 06/09/18 06:39 06/09/18 06:39 06/09/18 06:39 06/09/18 06:39 - Notes Notes: GENERAL_APPEARANCE: well_nourished, alert, cooperative, appears uncomfortable VITALS: reviewed, see vital signs table. HEAD: no_swelling\tenderness on the head. EYES: PERRL, EOMI, conjunctiva_clear. NOSE: no_nasal_discharge. MOUTH: (-)decreased moisture. THROAT: no_throat_inflammation, no_airway_obstruction. no_lymphadenopathy NECK: supple, no_neck_tenderness, (-)thyromegaly. BACK: no_back_tenderness. CHEST_WALL: no_chest_tenderness. LUNGS: no_wheezing, no_rales, no_rhonchi, (-)accessory muscle use, good air exchange bilateral. HEART: normal_rate, normal_rhythm, normal_S1, normal_S2, (-)S3, (-)S4, no_murmur, no_rub. ABDOMEN: normal_BS, soft, no_abd_tenderness, (-)guarding, (-)rebound, no_organomegaly, no_abd_masses. EXTREMITIES: No edema or swelling noted. Patient complains of subjective pain over bilateral knees bilateral hips and all over his extremities large muscle groups. No redness no heat no obvious swelling is noted. SKIN: warm, dry, good_color, no_rash. MENTAL_STATUS: speech_clear, oriented_X_3, normal_affect, responds_appropriately to questions. NEURO: Neg Motor or Sensory Deficits on exam, CN 2-12 intact, DTR 2+ symmetric x 4, No cerbellar signs Course - Re-evaluation Re-evalutation: 06/09/18 07:01 37-year-old male well-known frequent ER visits for exacerbations of his chronic sickle cell disease. We will give him IV fluids, oxygen pain and nausea medicine. We will check his hemoglobin and reticulocyte count. There appears to be nothing to suggest acute chest syndrome at this time. The patient appears to be producing red cells and is retaking well. Nothing to suggest an aplastic crisis or sepsis. The patient already has p.o. Dilaudid for home and sees Dr. Mckenzie goodman for hematology. 06/09/18 11:22 Patient is feeling better. He is received multiple doses of pain and nausea medicine. Patient is comfortable to go home he already has p.o. Dilaudid for home - Vital Signs Vital signs: Temp Pulse Resp BP Pulse Ox 98.2 F 77 12 118/86 H 100 06/09/18 06:39 06/09/18 06:39 06/09/18 10:01 06/09/18 10:01 06/09/18 10:01 - Laboratory Result Diagrams: 06/09/18 08:29 06/09/18 08:29 Laboratory results interpreted by me: 06/09/18 06/09/18 06/09/18 07:24 08:29 08:29 RBC 2.64 L Hgb 8.7 L Hct 25.1 L RDW 19.0 H Retic Count (auto) 7.11 H Absolute Retic 0.188 H Sodium 147.6 H Potassium 1.9 L* 3.3 L D Chloride 124 H Carbon Dioxide 18 L Creatinine 0.33 L Glucose 48 L Calcium 5.0 L* 8.0 L ALT 19 L Alkaline Phosphatase 37 L Total Protein 4.2 L Albumin 1.9 L Discharge - Discharge Clinical Impression: Sickle cell crisis Condition: Good Disposition: HOME, SELF-CARE Instructions: Sickle Cell Crisis ([facility])
[2018-06-09 08:06] LABS: ALANINE AMINOTRANSFERASE 19 U/L (21-72); ALBUMIN 1.9 g/dL (3.5-5.0); ALKALINE PHOSPHATASE 37 U/L (38-126); ANION GAP 6 (5-19); ASPARTATE AMINO TRANSFERASE 21 U/L (17-59); BILIRUBIN,TOTAL 1.3 mg/dL (0.2-1.3); BLOOD UREA NITROGEN 7 mg/dL (7-20); CARBON DIOXIDE 18 mmol/L (22-30); CHLORIDE 124 mmol/L (98-107); CREATINE KINASE 60 U/L (55-170); SODIUM 147.6 mmol/L (137-145); TOTAL PROTEIN 4.2 g/dL (6.3-8.2)
--- NOTE | 2018-06-09 08:16 | RADIOLOGY REPORT (SQ) ---
EXAM DESCRIPTION: CHEST SINGLE VIEW COMPLETED DATE/TIME: 06/09/2018 7:47 am REASON FOR STUDY: pain COMPARISON: 06/06/2018 EXAM PARAMETERS: NUMBER OF VIEWS: One view. TECHNIQUE: Single frontal radiographic view of the chest acquired. RADIATION DOSE: NA LIMITATIONS: None. FINDINGS: LUNGS AND PLEURA: Stable appearance to the bibasilar interstitial opacities since the laine or examination. No pneumothorax or pleural effusion. MEDIASTINUM AND HILAR STRUCTURES: No masses. Contour normal. HEART AND VASCULAR STRUCTURES: Cardiomegaly, unchanged finding. Mild prominence of the pulmonary va sculature, suggesting cephalization. BONES: No acute findings. HARDWARE: Left Noljoq-E-Yetk catheter, unchanged finding. OTHER: No other significant finding. IMPRESSION: 1. Stable examination since the prior study dated 06/06/2018. TECHNICAL DOCUMENTATION: JOB ID: [id number] [employer]- All Rights Reserved Reading location - IP/workstation name: [email or web address]
[2018-06-09 08:23] LABS: GLUCOSE 48 mg/dL (75-110)
[2018-06-09 08:24] LABS: POTASSIUM 1.9 mmol/L (3.6-5.0)
[2018-06-09 08:52] LABS: ABSOLUTE RETICS # 0.188 10^6/uL (0.028-0.122); HEMATOCRIT 25.1 % (37.9-51.0); HEMOGLOBIN 8.7 g/dL (13.5-17.0); MEAN CORPUSCULAR HEMOGLOBIN 32.8 pg (27.0-33.4); MEAN CORPUSCULAR HGB CONC 34.6 g/dL (32.0-36.0); MEAN CORPUSCULAR VOLUME 95 fl (80-97); PLATELET COUNT 341 10^3/uL (150-450); RED BLOOD COUNT 2.64 10^6/uL (4.35-5.55); RETICULOCYTE COUNT (AUTO) 7.11 % (0.66-2.85); WHITE BLOOD COUNT 6.3 10^3/uL (4.0-10.5)
[2018-06-09 08:55] LABS: ANION GAP 7 (5-19); BLOOD UREA NITROGEN 11 mg/dL (7-20); CHLORIDE 107 mmol/L (98-107); GLUCOSE 80 mg/dL (75-110); SODIUM 141.6 mmol/L (137-145)
[2018-06-09 09:10] LABS: CARBON DIOXIDE 28 mmol/L (22-30); POTASSIUM 3.3 mmol/L (3.6-5.0)
[2018-06-09 09:35] LABS: ABSOLUTE LYMPHOCYTES# (MANUAL) 2.6 10^3/uL (0.5-4.7); ABSOLUTE MONOCYTES # (MANUAL) 0.4 10^3/uL (0.1-1.4); ABSOLUTE NEUTROPHILS# (MANUAL) 3.1 10^3/uL (1.7-8.2); BASOPHILS % (MANUAL) 1 % (0-2); EOSINOPHILS % (MANUAL) 2 % (0-6); LYMPHOCYTES % (MANUAL) 42 % (13-45); MONOCYTES % (MANUAL) 6 % (3-13); NUCLEATED RED BLOOD CELLS 1 /100 WBC (0); SEGMENTED NEUTROPHILS % (MAN) 49 % (42-78); TOTAL CELLS COUNTED 100
[2018-06-09 09:36] LABS: ANISOCYTOSIS 2+; OVALOCYTES 1+; PLATELET COMMENT ADEQUATE; PLATELET LARGE PRESENT; POIKILOCYTOSIS SLIGHT; POLYCHROMASIA 1+; SICKLE RED CELLS 1+; TARGET CELLS SLIGHT; TOXIC GRANULATION SLIGHT; TOXIC VACUOLATION PRESENT
--- NOTE | 2018-06-09 11:00 | EKG REPORT ---
SEVERITY:- NORMAL ECG - SINUS RHYTHM : Confirmed by: Emre Montoya MD 09-Jun-2018 11:00:13
[2018-06-09] MEDS ORDERED: POTASSIUM CHLORIDE 10 MEQ CAPSULE.ER PO ONE (11:01)
[2018-06-09 12:23] VITALS: BP 130/89
== END 2018-06-09 12:13 | disposition home or self-care (01) ==
LOC: ER 06:34
DX: D57.00 Hb-SS disease with crisis, unspecified (principal); G89.29 Other chronic pain; F11.20 Opioid dependence, uncomplicated; M25.551 Pain in right hip; M25.552 Pain in left hip; M25.561 Pain in right knee; M25.562 Pain in left knee; M79.18 Myalgia, other site; Z88.8 Allergy status to other drugs, medicaments and biological substances; Z88.1 Allergy status to other antibiotic agents; Z88.5 Allergy status to narcotic agent; Z88.0 Allergy status to penicillin; Z91.040 Latex allergy status; Z91.018 Allergy to other foods
CPT/HCPCS: 93005; 36591; 96376; 99284; 96361; 96374; 96375; 36415; 82550; 85025; 85045; 80048; 80053; 71045; 93010; J1200; J1170; J7030; A9270; J1642

== ENCOUNTER 2018-06-10 02:53 | Inpatient (IN) | payer MEDICARE, MEDICAID ==
[2018-06-10] MEDS ORDERED: NORMAL SALINE 1000 ML 1,000 ML IV ONE (05:33)
--- NOTE | 2018-06-10 05:34 | ER Document Report ---
ED Medical Screen (RME) - General Chief Complaint: Sickle Cell Crisis Stated Complaint: SICKLE CELL Notes: 37-year-old male patient with history of sickle cell. Here complaining of joint pain. This is 6 visits in less than 3 weeks for pain control. He was seen here yesterday morning about the same time. I have greeted and performed a rapid initial assessment of this patient. A comprehensive ED assessment and evaluation of the patient, analysis of test results and completion of the medical decision making process will be conducted by additional ED providers. TRAVEL OUTSIDE OF THE [place] IN LAST 30 DAYS: No - Related Data Allergies/Adverse Reactions: famotidine [From Pepcid] Allergy (Severe, Verified 06/03/18 03:28) Anaphylaxis ketorolac tromethamine [From Toradol] Allergy (Severe, Verified 06/03/18 03:28) levofloxacin [From Levaquin] Allergy (Severe, Verified 06/03/18 03:28) meperidine HCl [From Demerol] Allergy (Severe, Verified 06/03/18 03:28) morphine [Morphine] Allergy (Severe, Verified 06/03/18 03:28) tramadol HCl [From Ultram] Allergy (Severe, Verified 06/03/18 03:28) amoxicillin [Amoxicillin] Allergy (Verified 06/03/18 03:28) fentanyl [Fentanyl] Allergy (Verified 06/03/18 03:28) latex [Latex] Allergy (Verified 06/03/18 03:28) ondansetron HCl [From Zofran] Allergy (Verified 06/03/18 03:28) Pork/Porcine Containing Products Allergy (Verified 06/03/18 03:28) Past Medical History - Past Medical History Cardiac Medical History: Denies: Hx Atrial Fibrillation, Hx Congestive Heart Failure, Hx Coronary Artery Disease Pulmonary Medical History: Denies: Hx Bronchitis, Hx Tuberculosis Neurological Medical History: Reports: Hx Seizures. Denies: Hx Migraine Endocrine Medical History: Denies: Hx Diabetes Mellitus Type 1, Hx Diabetes Mellitus Type 2 Renal/ Medical History: Denies: Hx Peritoneal Dialysis GI Medical History: Denies: Hx Cirrhosis, Hx Hepatitis Musculoskeltal Medical History: Denies Hx Arthritis, Denies Hx Gout, Reports Hx Musculoskeletal Deformity - right hip avascular necrosis Skin Medical History: Denies Hx Eczema, Denies Hx Psoriasis Psychiatric Medical History: Denies: Hx Depression Infectious Medical History: Denies: Hx Hepatitis Past Surgical History: Reports: Hx Appendectomy, Hx Vascular Surgery - L port placement, Other - Port placement - Immunizations Immunizations up to date: Yes Hx Diphtheria, Pertussis, Tetanus Vaccination: Yes Physical Exam - Vital signs Vitals: Temp Pulse Resp BP Pulse Ox 99.1 F 72 16 136/81 H 96 06/10/18 03:01 06/10/18 03:01 06/10/18 03:01 06/10/18 03:01 06/10/18 03:01 Course - Vital Signs Vital signs: Temp Pulse Resp BP Pulse Ox 99.1 F 72 16 119/72 96 06/10/18 03:01 06/10/18 03:01 06/10/18 03:01 06/10/18 04:58 06/10/18 05:03
[2018-06-10 05:52] LABS: ALANINE AMINOTRANSFERASE 33 U/L (21-72); ALBUMIN 4.1 g/dL (3.5-5.0); ALKALINE PHOSPHATASE 81 U/L (38-126); ANION GAP 7 (5-19); ASPARTATE AMINO TRANSFERASE 49 U/L (17-59); BILIRUBIN,DIRECT 0.5 mg/dL (0.0-0.4); BILIRUBIN,TOTAL 2.8 mg/dL (0.2-1.3); BLOOD UREA NITROGEN 11 mg/dL (7-20); CALCIUM 8.4 mg/dL (8.4-10.2); CARBON DIOXIDE 27 mmol/L (22-30); CHLORIDE 109 mmol/L (98-107); GLUCOSE 97 mg/dL (75-110); POTASSIUM 4.2 mmol/L (3.6-5.0); SODIUM 143.4 mmol/L (137-145); TOTAL PROTEIN 7.4 g/dL (6.3-8.2)
--- NOTE | 2018-06-10 06:21 | ER Document Report ---
ED General Pain - General Chief Complaint: Sickle Cell Crisis Stated Complaint: SICKLE CELL Time Seen by Provider: 06/10/18 05:34 Notes: 37-year-old male history of sickle cell disease presents complaining of bilateral hip pain bilateral knee pain. Patient was seen here yesterday for the same. Patient has history of sickle cell disease and is cared for by hematology. Patient has had multiple visits in the last several weeks for the same. He denies any fever chills sore throat denies chest pain denies shortness of breath. Denies nausea vomiting. This complains of severe pain in his lower extremities hips and joints. He states movement makes it worse TRAVEL OUTSIDE OF THE [place] IN LAST 30 DAYS: No - Related Data Allergies/Adverse Reactions: famotidine [From Pepcid] Allergy (Severe, Verified 06/03/18 03:28) Anaphylaxis ketorolac tromethamine [From Toradol] Allergy (Severe, Verified 06/03/18 03:28) levofloxacin [From Levaquin] Allergy (Severe, Verified 06/03/18 03:28) meperidine HCl [From Demerol] Allergy (Severe, Verified 06/03/18 03:28) morphine [Morphine] Allergy (Severe, Verified 06/03/18 03:28) tramadol HCl [From Ultram] Allergy (Severe, Verified 06/03/18 03:28) amoxicillin [Amoxicillin] Allergy (Verified 06/03/18 03:28) fentanyl [Fentanyl] Allergy (Verified 06/03/18 03:28) latex [Latex] Allergy (Verified 06/03/18 03:28) ondansetron HCl [From Zofran] Allergy (Verified 06/03/18 03:28) Pork/Porcine Containing Products Allergy (Verified 06/03/18 03:28) Past Medical History - Social History Smoking Status: Never Smoker Chew tobacco use (# tins/day): No Frequency of alcohol use: None Drug Abuse: None Family History: Other - Sickle cell disease Patient has suicidal ideation: No Patient has homicidal ideation: No - Past Medical History Cardiac Medical History: Denies: Hx Atrial Fibrillation, Hx Congestive Heart Failure, Hx Coronary Artery Disease Pulmonary Medical History: Denies: Hx Bronchitis, Hx Tuberculosis Neurological Medical History: Reports: Hx Seizures. Denies: Hx Migraine Endocrine Medical History: Denies: Hx Diabetes Mellitus Type 1, Hx Diabetes Mellitus Type 2 Renal/ Medical History: Denies: Hx Peritoneal Dialysis GI Medical History: Denies: Hx Cirrhosis, Hx Hepatitis Musculoskeletal Medical History: Denies Hx Arthritis, Denies Hx Gout, Reports Hx Musculoskeletal Deformity - right hip avascular necrosis Skin Medical History: Denies Hx Eczema, Denies Hx Psoriasis Psychiatric Medical History: Denies: Hx Depression Infectious Medical History: Denies: Hx Hepatitis Past Surgical History: Reports: Hx Appendectomy, Hx Vascular Surgery - L port placement, Other - Port placement - Immunizations Immunizations up to date: Yes Hx Diphtheria, Pertussis, Tetanus Vaccination: Yes Hx Pneumococcal Vaccination: 02/20/11 Review of Systems - Review of Systems Constitutional: denies: Chills, Fever Cardiovascular: denies: Chest pain, Dyspnea Musculoskeletal: Joint pain, Muscle pain Skin: denies: Rash Hematologic/Lymphatic: Anemia Neurological/Psychological: denies: Headaches -: Yes All other systems reviewed and negative Physical Exam - Vital signs Vitals: Temp Pulse Resp BP Pulse Ox 99.1 F 72 16 136/81 H 96 06/10/18 03:01 06/10/18 03:01 06/10/18 03:01 06/10/18 03:01 06/10/18 03:01 - Notes Notes: GENERAL_APPEARANCE: well_nourished, alert, cooperative, sleeping appears no acute distress VITALS: reviewed, see vital signs table. HEAD: no_swelling\tenderness on the head. EYES: PERRL, EOMI, conjunctiva_clear. NOSE: no_nasal_discharge. MOUTH: (-)decreased moisture. THROAT: no_throat_inflammation, no_airway_obstruction. no_lymphadenopathy NECK: supple, no_neck_tenderness, (-)thyromegaly. BACK: no_back_tenderness. CHEST_WALL: no_chest_tenderness. LUNGS: no_wheezing, no_rales, no_rhonchi, (-)accessory muscle use, good air exchange bilateral. HEART: normal_rate, normal_rhythm, normal_S1, normal_S2, (-)S3, (-)S4, no_murmur, no_rub. ABDOMEN: normal_BS, soft, no_abd_tenderness, (-)guarding, (-)rebound, no_organomegaly, no_abd_masses. EXTREMITIES: Complains of bilateral hip and knee pain on inspection and palpation there is tenderness but no swelling. No redness no heat no synovitis. PMS intact in all 4 extremities. No edema noted SKIN: warm, dry, good_color, no_rash. MENTAL_STATUS: speech_clear, oriented_X_3, normal_affect, r esponds_appropriately to questions. NEURO: Neg Motor or Sensory Deficits on exam, CN 2-12 intact, DTR 2+ symmetric x 4, No cerbellar signs Course - Re-evaluation Re-evalutation: 06/10/18 06:20 37-year-old male presents to the emergency department complaining of sickle cell pain. The patient is a frequent visitor here to the emergency room has had many visits over the last several weeks. He has no fever no chills. He had a reasonable hemoglobin yesterday is her to count was on the lower side but still retaking. Nothing to suggest an aplastic crisis. No signs of any infections. We will give him IV fluids oxygen and monitor him. 06/10/18 08:00 Patient was upset. I came in at 6 AM and he was demanding narcotics calling administration and his. I spoke with the comfort station supervisor and we came up with the plan. I was waiting to see if the lab work was going to come back but there was a delay and went ahead and did treat him with IV pain and nausea medicine. Once I got the labs back there actually improved as compared to yesterday. His retake index is retaking appropriately but is not significantly elevated where I would think he is having considerable red cell turnover. He certainly is not having an aplastic crisis no fever no leukocytosis he mainly complains of his legs hips thighs and knees to me he has not complained of any chest pain. I did do an EKG and chest x-ray yesterday which was normal. I see no need to keep this this time. I have went over the lab work with his comfort station supervisor Dr. Durant her recommendation is to admit him to the hospital for pain control. I have spoke with Dr. Crawford from the hospitalist service - Vital Signs Vital signs: Temp Pulse Resp BP Pulse Ox 99.1 F 72 16 119/72 96 06/10/18 03:01 06/10/18 03:01 06/10/18 03:01 06/10/18 04:58 06/10/18 05:03 - Laboratory Result Diagrams: 06/10/18 05:15 06/10/18 05:15 Laboratory results interpreted by me: 06/10/18 06/10/18 05:15 05:15 RBC 2.72 L Hgb 9.0 L Hct 26.0 L RDW 19.8 H Retic Count (auto) 7.78 H Absolute Retic 0.212 H Chloride 109 H Total Bilirubin 2.8 H Direct Bilirubin 0.5 H Discharge - Discharge Clinical Impression: Sickle cell crisis Condition: Good Disposition: ADMITTED OBSERVATION Admitting Provider: Hospitalist Unit Admitted: Medical Floor
[2018-06-10 06:47] LABS: ABSOLUTE RETICS # 0.212 10^6/uL (0.028-0.122); MEAN CORPUSCULAR HEMOGLOBIN 32.9 pg (27.0-33.4); MEAN CORPUSCULAR HGB CONC 34.5 g/dL (32.0-36.0); MEAN CORPUSCULAR VOLUME 96 fl (80-97); PLATELET COUNT 303 10^3/uL (150-450); RED BLOOD COUNT 2.72 10^6/uL (4.35-5.55); RED CELL DISTRIBUTION WIDTH 19.8 % (11.5-14.0); RETICULOCYTE COUNT (AUTO) 7.78 % (0.66-2.85)
[2018-06-10] MEDS ORDERED: HYDROMORPHONE HCL INJ/PF 2 MG/ML AMPULE IV ONE ×2 (06:55→08:10)
[2018-06-10] MEDS ORDERED: DIPHENHYDRAMINE HCL 50 MG/ML VIAL IV ONE ×2 (06:55→08:10)
[2018-06-10 07:47] LABS: ABSOLUTE LYMPHOCYTES# (MANUAL) 2.7 10^3/uL (0.5-4.7); ABSOLUTE MONOCYTES # (MANUAL) 0.5 10^3/uL (0.1-1.4); ABSOLUTE NEUTROPHILS# (MANUAL) 5.9 10^3/uL (1.7-8.2); BASOPHILS % (MANUAL) 0 % (0-2); EOSINOPHILS % (MANUAL) 0 % (0-6); LYMPHOCYTES % (MANUAL) 28 % (13-45); MONOCYTES % (MANUAL) 5 % (3-13); NUCLEATED RED BLOOD CELLS 2 /100 WBC (0); SEGMENTED NEUTROPHILS % (MAN) 65 % (42-78); TOTAL CELLS COUNTED 100; TOXIC VACUOLATION PRESENT
[2018-06-10 07:48] LABS: ANISOCYTOSIS 2+; HYPOCHROMASIA 1+; OVALOCYTES 3+; PLATELET COMMENT ADEQUATE; POIKILOCYTOSIS 3+; POLYCHROMASIA 3+; SCHISTOCYTES 1+; SICKLE RED CELLS 1+; TOXIC GRANULATION SLIGHT
[2018-06-10] MEDS ORDERED: ACETAMINOPHEN 325 MG TABLET PO PRN (09:27)
[2018-06-10] MEDS ORDERED: DIPHENHYDRAMINE HCL 50 MG/ML VIAL IV PRN (09:37)
[2018-06-10] MEDS ORDERED: PSEUDOEPHEDRINE HCL 30 MG TABLET PO PRN (09:38)
[2018-06-10] MEDS ORDERED: BACLOFEN 10 MG TABLET PO PRN ×2 (09:38→17:56)
[2018-06-10] MEDS ORDERED: OXYCODONE HCL IR 5 MG TABLET PO PRN ×2 (09:42)
[2018-06-10] MEDS ORDERED: HYDROMORPHONE HCL INJ/PF 2 MG/ML AMPULE IV PRN ×3 (09:45→14:11)
--- NOTE | 2018-06-10 10:04 | PDOC H&P ---
History of Present Illness Admission Date/PCP: 06/10/18 08:12 Patient complains of: Bilateral lower extremity joint pains and muscle pains from sickle cell crisis History of Present Illness: MARISA GARBER is a 37 year old male with a history of sickle cell anemia. In April he was admitted to the hospital for the same. He does follow with Dr. Durant and Dr. Garcia. He was in the emergency department yesterday and treated with fluids and analgesics. He discharged home but still had significant pain. He presented back to the emergency department and was referred to the hospitalist service for admission. Past Medical History Cardiac Medical History: Denies: Atrial Fibrillation, Congestive Heart Failure, Coronary Artery Disease Pulmonary Medical History: Denies: Bronchitis, Tuberculosis EENT Medical History: Reports: None Neurological Medical History: Reports: Seizures Denies: Migraine Endocrine Medical History: Denies: Diabetes Mellitus Type 1, Diabetes Mellitus Type 2 Malignancy Medical History: Reports: None GI Medical History: Denies: Cirrhosis, Hepatitis Musculoskeltal Medical History: Denies: Arthritis, Gout Skin Medical History: Denies: Eczema, Psoriasis Psychiatric Medical History: Denies: Depression Traumatic Medical History: Reports: None Hematology: Reports: Anemia, Sickle Cell Disease Denies: Hemophilia Infectious Medical History: Reports: None Past Surgical History Past Surgical History: Reports: Appendectomy, Vascular Surgery - L port placement, Other - Port placement Social History Information Source: Patient Lives with: Family Smoking Status: Never Smoker Frequency of Alcohol Use: None Hx Recreational Drug Use: No Drugs: None, Methadone Hx Prescription Drug Abuse: No - Advance Directive Resuscitation Status: Full Code Surrogate healthcare decision maker:: The patient does not have a healthcare proxy written. He does not have a designated decision maker. His parents are still alive and decisions would likely default to them. Family History Family History: Other - Sickle cell disease Parental Family History Reviewed: Yes Children Family History Reviewed: Yes Sibling(s) Family History Reviewed.: Yes Medication/Allergy Home Medications: Methadone HCl [Dolophine HCl] 5 mg PO BID 10/11/16 Oxycodone HCl [Oxycodone HCl 10 MG Tablet] 10 mg PO Q8HP PRN 04/05/17 Hydroxyurea 1,500 mg PO DAILY 03/22/18 Docusate Sodium [Colace 100 mg Capsule] 100 mg PO BIDP PRN 04/22/18 Folic Acid [Folvite 1 mg Tablet] 1 mg PO DAILY 04/22/18 Ibuprofen [Motrin 600 mg Tablet] 600 mg PO Q6HP PRN 04/30/18 Allergies/Adverse Reactions: famotidine [From Pepcid] Allergy (Severe, Verified 06/03/18 03:28) Anaphylaxis ketorolac tromethamine [From Toradol] Allergy (Severe, Verified 06/03/18 03:28) levofloxacin [From Levaquin] Allergy (Severe, Verified 06/03/18 03:28) meperidine HCl [From Demerol] Allergy (Severe, Verified 06/03/18 03:28) morphine [Morphine] Allergy (Severe, Verified 06/03/18 03:28) tramadol HCl [From Ultram] Allergy (Severe, Verified 06/03/18 03:28) amoxicillin [Amoxicillin] Allergy (Verified 06/03/18 03:28) fentanyl [Fentanyl] Allergy (Verified 06/03/18 03:28) latex [Latex] Allergy (Verified 06/03/18 03:28) ondansetron HCl [From Zofran] Allergy (Verified 06/03/18 03:28) Pork/Porcine Containing Products Allergy (Verified 06/03/18 03:28) Review of Systems Constitutional: PRESENT: as per HPI. ABSENT: chills, fever(s), night sweats Eyes: PRESENT: other - Wears glasses. ABSENT: visual disturbances Ears: ABSENT: hearing changes Nose, Mouth, and Throat: PRESENT: other - Dry mouth. ABSENT: mouth pain, sore throat Cardiovascular: ABSENT: chest pain, edema, palpitations Respiratory: ABSENT: cough, dyspnea, hemoptysis Gastrointestinal: ABSENT: constipation, diarrhea, heartburn, nausea, vomiting Genitourinary: ABSENT: difficulty urinating, dysuria Musculoskeletal: PRESENT: other - Hip and knee pain bilaterally with muscle tenderness. Integumentary: ABSENT: erythema, lesions, rash Neurological: ABSENT: abnormal speech, confusion, focal weakness, tremor(s), vertigo Psychiatric: ABSENT: anxiety, depression Endocrine: ABSENT: cold intolerance, heat intolerance Hematologic/Lymphatic: PRESENT: as per HPI Allergic/Immunologic: PRESENT: as per HPI Physical Exam Vital Signs: Temp Pulse Resp BP Pulse Ox 99.1 F 72 16 134/81 H 99 06/10/18 03:01 06/10/18 03:01 06/10/18 03:01 06/10/18 06:01 06/10/18 08:00 Intake & Output 06/09/18 06/10/18 06/11/18 06:59 06:59 06:59 Intake Total 1000 Balance 1000 Weight 82.6 kg General appearance: PRESENT: cooperative, mild distress, well-developed Head exam: PRESENT: atraumatic, normocephalic Eye exam: PRESENT: conjunctiva pale, EOMI, scleral icterus Ear exam: PRESENT: normal external ear exam Mouth exam: PRESENT: dry mucosa, neck supple, tongue midline Neck exam: ABSENT: carotid bruit, JVD Respiratory exam: PRESENT: clear to auscultation anastasiya, symmetrical, unlabored. ABSENT: rales, rhonchi, wheezes Cardiovascular exam: PRESENT: RRR, +S1, +S2 GI/Abdominal exam: PRESENT: normal bowel sounds, soft. ABSENT: distended, tenderness Rectal exam: PRESENT: deferred Extremities exam: PRESENT: calf tenderness - Quadricep tenderness. ABSENT: pedal edema Musculoskeletal exam: PRESENT: tenderness Neurological exam: PRESENT: alert, awake, oriented to person, oriented to place, oriented to time, oriented to situation, CN II-XII grossly intact Psychiatric exam: PRESENT: appropriate affect - Affect reflects his discomfort. ABSENT: agitated, anxious Focused psych exam: ABSENT: delusional, restlessness Skin exam: PRESENT: normal color. ABSENT: dry, mottled, rash, urticaria Results Laboratory Results: 06/10/18 05:15 06/10/18 05:15 06/10/18 06/10/18 05:15 05:15 WBC 9.0 RBC 2.72 L Hgb 9.0 L Hct 26.0 L MCV 96 MCH 32.9 MCHC 34.5 RDW 19.8 H Plt Count 303 Seg Neutrophils % Not Reportable Lymphocytes % Not Reportable Monocytes % Not Reportable Eosinophils % Not Reportable Basophils % Not Reportable Absolute Neutrophils Not Reportable Absolute Lymphocytes Not Reportable Absolute Monocytes Not Reportable Absolute Eosinophils Not Reportable Absolute Basophils Not Reportable Retic Count (auto) 7.78 H Absolute Retic 0.212 H Sodium 143.4 Potassium 4.2 Chloride 109 H Carbon Dioxide 27 Anion Gap 7 BUN 11 Creatinine 0.66 Est GFR ( Amer) > 60 Est GFR (Non-Af Amer) > 60 Glucose 97 Calcium 8.4 Total Bilirubin 2.8 H AST 49 ALT 33 Alkaline Phosphatase 81 Total Protein 7.4 Albumin 4.1 Assessment & Plan - Diagnosis (1) Sickle cell crisis Is this a current diagnosis for this admission?: Yes Plan: The patient was in the emergency department yesterday and has had several admissions for sickle cell crisis. His hemoglobin is 9 and this is been stable. He has an elevated bilirubin but transaminases are normal. He typically has bilateral hip and joint pain. His right hip has avascular necrosis. We will continue to aggressively hydrate. Analgesia above his scheduled outpatient doses will be administered. Because of "itching" with Dilaudid he typically receives Benadryl with his Dilaudid. 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 (2) Joint pain Qualifiers: Joint pain location: knee Laterality: bilateral Qualified Code(s): M25.561 - Pain in right knee; M25.562 - Pain in left knee Is this a current diagnosis for this admission?: Yes Plan: These are characteristically the patient's symptoms when he does have sickle cell episode. Fluids and pain management as above. He does have avascular necrosis of the right hip and this is a chronic issue. (3) Avascular necrosis of hip Qualifiers: Laterality: right Qualified Code(s): M87.051 - Idiopathic aseptic necrosis of right femur Is this a current diagnosis for this admission?: Yes Plan: Pain management as above. (4) Myalgia Is this a current diagnosis for this admission?: Yes Plan: We will check a total creatinine kinase enzyme to look for any muscle breakdown. Otherwise continue IV fluids and analgesia as ordered. Baclofen is also available. (5) Polyarthralgia Is this a current diagnosis for this admission?: Yes Plan: IV fluids and analgesia as above. He does have ibuprofen ordered as well. (6) Opiate dependence, continuous Is this a current diagnosis for this admission?: Yes Plan: We will continue the outpatient regimen with additional as needed medications available. - Time Time Spent: 50 to 70 Minutes Medications reviewed and adjusted accordingly: Yes Anticipated discharge: Home Within: within 48 hours
[2018-06-10] MEDS ORDERED: HYDROXYUREA 500 MG CAPSULE PO SCH (10:30)
[2018-06-10] MEDS: FOLIC ACID 1 MG TABLET PO SCH (11:16)
[2018-06-10] MEDS: METHADONE HCL 10 MG TABLET PO SCH ×2 (11:16→22:35)
[2018-06-10] MEDS ORDERED: HYDROMORPHONE HCL INJ/PF 2 MG/ML AMPULE ONE (14:12)
[2018-06-10] MEDS: NORMAL SALINE 1000 ML 1,000 ML IV PRN ×2 (14:14→20:32)
[2018-06-10] MEDS: HYDROMORPHONE HCL INJ/PF 2 MG/ML AMPULE IV PRN ×4 (16:14→22:35)
[2018-06-10] MEDS ORDERED: SENNOSIDES PO PRN (17:56)
[2018-06-10] MEDS ORDERED: DOCUSATE SODIUM 100 MG CAPSULE PO PRN (17:56)
[2018-06-10] MEDS: DIPHENHYDRAMINE HCL 50 MG/ML VIAL IV PRN ×2 (18:13→22:35)
[2018-06-10] MEDS ORDERED: SENNOSIDES/DOCUSATE 8.6-50 MG 1 EACH TABLET PO PRN (18:14)
[2018-06-10] MEDS: PSEUDOEPHEDRINE HCL 30 MG TABLET PO SCH (20:27)
[2018-06-11] MEDS: DIPHENHYDRAMINE HCL 50 MG/ML VIAL IV PRN ×11 (00:49→23:08)
[2018-06-11] MEDS: HYDROMORPHONE HCL INJ/PF 2 MG/ML AMPULE IV PRN ×11 (00:49→23:09)
[2018-06-11 05:37] LABS: ALANINE AMINOTRANSFERASE 33 U/L (21-72); ALBUMIN 3.8 g/dL (3.5-5.0); ALKALINE PHOSPHATASE 56 U/L (38-126); ASPARTATE AMINO TRANSFERASE 38 U/L (17-59); BILIRUBIN,DIRECT 0.2 mg/dL (0.0-0.4); BILIRUBIN,TOTAL 2.1 mg/dL (0.2-1.3); CREATINE KINASE 65 U/L (55-170); TOTAL PROTEIN 6.8 g/dL (6.3-8.2)
[2018-06-11] MEDS ORDERED: BACLOFEN 10 MG TABLET PO PRN (08:22)
[2018-06-11] MEDS ORDERED: SENNOSIDES/DOCUSATE 8.6-50 MG 1 EACH TABLET PO PRN (08:23)
[2018-06-11] MEDS ORDERED: POLYETHYLENE GLYCOL 3350 POWDER 17 GM/1 PACKET PO PRN (08:23)
[2018-06-11] MEDS ORDERED: NORMAL SALINE 1000 ML 1,000 ML IV PRN (08:24)
--- NOTE | 2018-06-11 08:56 | PDOC CONSULTATION ---
Consultation Consult Date: 06/11/18 Attending physician:: ANTHONY COLON Consult reason:: Severe pain crisis History of Present Illness Admission Date/PCP: 06/10/18 08:12 Patient complains of: Pain History of Present Illness: MARISA GARBER is a 37 year old male with known history of sickle cell disease, now well-known to our clinic, having pain crisis, severe back pain, leg pain consistent with usual crisis. Has known history of priapism and uses baclofen as needed for that. Had IV fluids and pain medications with no improvement in the ED so was admitted for continued IV fluids and pain crisis. Past Medical History Cardiac Medical History: Denies: Atrial Fibrillation, Congestive Heart Failure, Coronary Artery Dise ase Pulmonary Medical History: Denies: Bronchitis, Tuberculosis EENT Medical History: Reports: None Neurological Medical History: Reports: Seizures Denies: Migraine Endocrine Medical History: Denies: Diabetes Mellitus Type 1, Diabetes Mellitus Type 2 Malignancy Medical History: Reports: None GI Medical History: Denies: Cirrhosis, Hepatitis Musculoskeltal Medical History: Denies: Arthritis, Gout Skin Medical History: Denies: Eczema, Psoriasis Psychiatric Medical History: Denies: Depression Traumatic Medical History: Reports: None Hematology: Reports: Anemia, Sickle Cell Disease Denies: Hemophilia Infectious Medical History: Reports: None Past Surgical History Past Surgical History: Reports: Appendectomy, Vascular Surgery - L port placeme nt, Other - Port placement Social History Lives with: Family Smoking Status: Former Smoker Cigarettes Packs Per Day: 2 Cigars Per Day: 0 Pipes Per Day: 0 Number of Years Smokin Last Time Smoked: 04/22/2011 Frequency of Alcohol Use: None Hx Recreational Drug Use: No Drugs: None, Methadone Hx Prescription Drug Abuse: No - Advance Directive Resuscitation Status: Full Code Family History Family History: Other - Sickle cell disease Parental Family History Reviewed: Yes Children Family History Reviewed: Yes Sibling(s) Family History Reviewed.: Yes Medication/Allergy Home Medications: Methadone HCl [Dolophine HCl] 5 mg PO BID 10/11/16 Oxycodone HCl [Oxycodone HCl 10 MG Tablet] 10 mg PO Q8HP PRN 04/05/17 Hydroxyurea 1,500 mg PO MOWEFR@1000 03/22/18 Docusate Sodium [Colace 100 mg Capsule] 100 mg PO BIDP PRN 04/22/18 Folic Acid [Folvite 1 mg Tablet] 1 mg PO DAILY 04/22/18 Ibuprofen [Motrin 600 mg Tablet] 600 mg PO Q6HP PRN 04/30/18 Baclofen [Baclofen 10 mg Tablet] 10 mg PO HSP PRN 06/10/18 Hydroxyurea [Hydrea 500 Mg Capsule] 500 mg PO SUTHFRSA@1000 06/10/18 Pseudoephedrine HCl [Sudafed] 60 mg PO QPM 06/10/18 Sennosides [Senokotxtra] 34.4 mg PO HSP PRN 06/10/18 Terbutaline Sulfate [Brethine] 5 mg PO Q6HP PRN 06/10/18 Allergies/Adverse Reactions: famotidine [From Pepcid] Allergy (Severe, Verified 06/10/18 10:01) Anaphylaxis ketorolac tromethamine [From Toradol] Allergy (Severe, Verified 06/10/18 10:01) levofloxacin [From Levaquin] Allergy (Severe, Verified 06/10/18 10:01) meperidine HCl [From Demerol] Allergy (Severe, Verified 06/10/18 10:01) morphine [Morphine] Allergy (Severe, Verified 06/10/18 10:01) tramadol HCl [From Ultram] Allergy (Severe, Verified 06/10/18 10:01) amoxicillin [Amoxicillin] Allergy (Verified 06/10/18 10:01) fentanyl [Fentanyl] Allergy (Verified 06/10/18 10:01) latex [Latex] Allergy (Verified 06/10/18 10:01) ondansetron HCl [From Zofran] Allergy (Verified 06/10/18 10:01) Pork/Porcine Containing Products Allergy (Verified 06/10/18 10:01) Review of Systems Constitutional: PRESENT: anorexia, fatigue, weakness Cardiovascular: PRESENT: dyspnea on exertion Respiratory: ABSENT: cough, hemoptysis Gastrointestinal: PRESENT: nausea Musculoskeletal: PRESENT: back pain, joint swelling Neurological: ABSENT: abnormal gait, abnormal speech, confusion, dizziness, focal weakness, syncope Psychiatric: PRESENT: anxiety Physical Exam Vital Signs: Temp Pulse Resp BP Pulse Ox 98.3 F 73 15 121/83 99 06/11/18 07:28 06/11/18 07:28 06/11/18 07:28 06/11/18 07:28 06/11/18 07:28 Intake & Output 06/10/18 06/11/18 06/12/18 06:59 06:59 06:59 Intake Total 1000 2573 Output Total 1200 Balance 1000 1373 Weight 82.6 kg 79.2 kg General appearance: PRESENT: mild distress Mouth exam: PRESENT: dry mucosa Respiratory exam: PRESENT: clear to auscultation anastasiya. ABSENT: rales, rhonchi, wheezes Cardiovascular exam: PRESENT: tachycardia GI/Abdominal exam: PRESENT: normal bowel sounds, soft. ABSENT: distended, guarding, mass, organolmegaly, rebound, tenderness Rectal exam: PRESENT: deferred Neurological exam: PRESENT: alert, awake, oriented to person, oriented to place, oriented to time, oriented to situation, CN II-XII grossly intact. ABSENT: motor sensory deficit Psychiatric exam: PRESENT: agitated, anxious Results Laboratory Results: 06/10/18 05:15 06/10/18 05:15 06/11/18 05:05 Total Bilirubin 2.1 H AST 38 ALT 33 Alkaline Phosphatase 56 Total Protein 6.8 Albumin 3.8 06/11/18 05:05 Creatine Kinase 65 Assessment & Plan - Diagnosis (1) Sickle cell crisis Is this a current diagnosis for this admission?: Yes Plan: Increased Dilaudid 3 mg IV, start K pad for comfort, start bowel regimen, give bolus and start IV fluids at 150/h. I will control his pain medications. He usually needs several days in to control the crisis. 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 We will do this if needed. - Time Time Spent: Greater than 70 Minutes - Inpatient Certification Based on my medical assessment, after consideration of the patient's com orbidities, presenting symptoms, or acuity I expect that the services needed warrant INPATIENT care.: Yes I certify that my determination is in accordance with my understanding of Medicare's requirements for reasonable and necessary INPATIENT services [42 CFR 412.3e].: Yes Medical Necessity: Need For IV Fluids, Need for Pain Control
[2018-06-11] MEDS ORDERED: HYDROXYUREA 500 MG CAPSULE PO SCH (10:00)
[2018-06-11] MEDS: FOLIC ACID 1 MG TABLET PO SCH (10:22)
[2018-06-11] MEDS: METHADONE HCL 10 MG TABLET PO SCH ×2 (10:22→23:08)
[2018-06-11] MEDS: NORMAL SALINE 1000 ML 1,000 ML IV PRN ×2 (10:23→17:27)
[2018-06-11] MEDS: HYDROXYUREA 500 MG CAPSULE PO SCH (10:34)
[2018-06-11] MEDS: PSEUDOEPHEDRINE HCL 30 MG TABLET PO SCH (17:26)
--- NOTE | 2018-06-11 19:35 | PDOC PROGRESS REPORT ---
Subjective Progress Note for:: 06/11/18 Subjective:: Still with significant pain Reason For Visit: SICKLE CELL CRISIS Physical Exam Vital Signs: Temp Pulse Resp BP Pulse Ox 98.1 F 85 17 136/84 H 95 06/11/18 12:21 06/11/18 12:21 06/11/18 12:21 06/11/18 12:21 06/11/18 12:21 Intake & Output 06/10/18 06/11/18 06/12/18 06:59 06:59 06:59 Intake Total 1000 2573 118 Output Total 1200 Balance 1000 1373 118 Weight 82.6 kg 79.2 kg General appearance: PRESENT: cooperative, mild distress, well-developed, other - Clearly in pain Head exam: PRESENT: normocephalic Respiratory exam: PRESENT: clear to auscultation anastasiya, symmetrical, unlabored. ABSENT: rales, rhonchi, wheezes Cardiovascular exam: PRESENT: RRR, +S1, +S2, systolic murmur - 1/6 GI/Abdominal exam: PRESENT: normal bowel sounds, soft. ABSENT: distended, tenderness Extremities exam: PRESENT: tenderness - Especially left knee and ankle Musculoskeletal exam: PRESENT: tenderness - Quadriceps and calves Neurological exam: PRESENT: alert, awake, oriented to person, oriented to place, oriented to time, oriented to situation, CN II-XII grossly intact Psychiatric exam: PRESENT: depressed, flat affect. ABSENT: agitated, anxious Focused psych exam: ABSENT: delusional, restlessness Results Laboratory Results: 06/10/18 05:15 06/10/18 05:15 06/11/18 05:05 Total Bilirubin 2.1 H AST 38 ALT 33 Alkaline Phosphatase 56 Total Protein 6.8 Albumin 3.8 06/11/18 05:05 Creatine Kinase 65 Assessment & Plan - Diagnosis (1) Sickle cell crisis Is this a current diagnosis for this admission?: Yes Plan: Please also see hematology note. The patient will continue with IV fluids. Analgesia increased again. Continue hydroxyurea as ordered. (2) Joint pain Qualifiers: Joint pain location: knee Laterality: bilateral Qualified Code(s): M25.561 - Pain in right knee; M25.562 - Pain in left knee Is this a current diagnosis for this admission?: Yes Plan: Warm compresses seem to help slightly. The patient does have anti- inflammatories ordered. Analgesia as above. (3) Avascular necrosis of hip Qualifiers: Laterality: right Qualified Code(s): M87.051 - Idiopathic aseptic necrosis of right femur Is this a current diagnosis for this admission?: Yes Plan: Pain management as outlined above (4) Myalgia Is this a current diagnosis for this admission?: Yes Plan: Pain management as above (5) Polyarthralgia Is this a current diagnosis for this admission?: Yes Plan: Heat pack and pain management as above (6) Opiate dependence, continuous Is this a current diagnosis for this admission?: Yes Plan: The Dilaudid is up to 3 mg every 2 hours with associated Benadryl for itching. (7) Depression Qualifiers: Depression Type: unspecified Qualified Code(s): F32.9 - Major depressive disorder, single episode, unspecified Is this a current diagnosis for this admission?: Yes Plan: During this encounter I asked the patient if he felt overwhelmed. He has 2 daughters. He finds it difficult to explain to them his illness and his multiple stays in the hospital. He did become tearful during the encounter. I did not suggest any antidepressant medication at this time but will discuss further with the patient. - Time Time Spent with patient: 15-24 minutes Medications reviewed and adjusted accordingly: Yes Anticipated discharge: Home
[2018-06-12] MEDS: HYDROMORPHONE HCL INJ/PF 2 MG/ML AMPULE IV PRN ×9 (01:29→22:28)
[2018-06-12] MEDS: DIPHENHYDRAMINE HCL 50 MG/ML VIAL IV PRN ×9 (01:30→22:25)
[2018-06-12] MEDS: NORMAL SALINE 1000 ML 1,000 ML IV PRN ×4 (01:33→22:35)
--- NOTE | 2018-06-12 08:07 | PDOC PROGRESS REPORT ---
Subjective Progress Note for:: 06/12/18 Subjective:: Pain better controlled with higher dose of Dilaudid. Reason For Visit: SICKLE CELL CRISIS Physical Exam Vital Signs: Temp Pulse Resp BP Pulse Ox 98.4 F 68 18 126/88 H 100 06/11/18 23:41 06/11/18 23:41 06/11/18 23:41 06/11/18 23:41 06/11/18 23:41 Intake & Output 06/11/18 06/12/18 06/13/18 06:59 06:59 06:59 Intake Total 2573 4492 Output Total 1200 1800 Balance 1373 2692 Weight 79.2 kg 80.2 kg General appearance: PRESENT: no acute distress, well-developed, well-nourished Head exam: PRESENT: atraumatic, normocephalic Eye exam: PRESENT: conjunctiva pink, EOMI, PERRLA. ABSENT: scleral icterus Ear exam: PRESENT: normal external ear exam Mouth exam: PRESENT: moist, tongue midline Neck exam: ABSENT: carotid bruit, JVD, lymphadenopathy, thyromegaly Respiratory exam: PRESENT: clear to auscultation anastasiya. ABSENT: rales, rhonchi, wheezes Cardiovascular exam: PRESENT: RRR. ABSENT: diastolic murmur, rubs, systolic murmur Pulses: PRESENT: normal dorsalis pedis pul Vascular exam: PRESENT: normal capillary refill GI/Abdominal exam: PRESENT: normal bowel sounds, soft. ABSENT: distended, guarding, mass, organolmegaly, rebound, tenderness Rectal exam: PRESENT: deferred Extremities exam: PRESENT: full ROM. ABSENT: calf tenderness, clubbing, pedal edema Neurological exam: PRESENT: alert, awake, oriented to person, oriented to place, oriented to time, oriented to situation, CN II-XII grossly intact. ABSENT: motor sensory deficit Psychiatric exam: PRESENT: appropriate affect, normal mood. ABSENT: homicidal ideation, suicidal ideation Skin exam: PRESENT: dry, intact, warm. ABSENT: cyanosis, rash Results Laboratory Results: 06/10/18 05:15 06/10/18 05:15 06/11/18 05:05 Creatine Kinase 65 Assessment & Plan - Diagnosis (1) Sickle cell crisis Is this a current diagnosis for this admission?: Yes Plan: Slowly improving, continue with aggressive hydration, continue with current dose of IV Dilaudid. I discontinued his oxycodone. I believe when patients are in with pain crisis they need to be on IV pain medication alone for a period of time. Once they are ready for discharge then we transition him back to oral. Continue with oral methadone however for long-acting pain medication. Continue other supportive medicines. He will probably need another 2-3 days IN. 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
--- NOTE | 2018-06-12 10:17 | PDOC PROGRESS REPORT ---
Subjective Progress Note for:: 06/12/18 Subjective:: 06/12/2018-this 37-year-old male with history of sickle cell anemia admitted with sickle cell crisis. He is still in considerable amount of pain. Dr. Medellin saw the patient this morning and made adjustments in the pain medications. Patient is also on aggressive IV fluid replacement. Reason For Visit: SICKLE CELL CRISIS Physical Exam Vital Signs: Temp Pulse Resp BP Pulse Ox 97.6 F 67 15 132/85 H 100 06/12/18 08:06 06/12/18 08:06 06/12/18 08:06 06/12/18 08:06 06/12/18 08:06 Intake & Output 06/11/18 06/12/18 06/13/18 06:59 06:59 06:59 Intake Total 2573 4492 1000 Output Total 1200 1800 Balance 1373 2692 1000 Weight 79.2 kg 80.2 kg General appearance: PRESENT: mild distress Head exam: PRESENT: atraumatic Eye exam: PRESENT: PERRLA Teeth exam: PRESENT: poor dentation Neck exam: ABSENT: carotid bruit, JVD, lymphadenopathy, thyromegaly Respiratory exam: PRESENT: clear to auscultation anastasiya. ABSENT: rales, rhonchi, wheezes Cardiovascular exam: PRESENT: RRR. ABSENT: diastolic murmur, rubs, systolic murmur GI/Abdominal exam: PRESENT: normal bowel sounds, soft. ABSENT: distended, guarding, mass, organolmegaly, rebound, tenderness Extremities exam: PRESENT: full ROM. ABSENT: calf tenderness, clubbing, pedal edema Neurological exam: PRESENT: alert, awake, oriented to person, oriented to place, oriented to time, oriented to situation, CN II-XII grossly intact. ABSENT: motor sensory deficit Psychiatric exam: PRESENT: appropriate affect, normal mood. ABSENT: homicidal ideation, suicidal ideation Results Laboratory Results: 06/10/18 05:15 06/10/18 05:15 06/11/18 05:05 Creatine Kinase 65 Assessment & Plan - Diagnosis (1) Sickle cell crisis Is this a current diagnosis for this admission?: Yes Plan: Please also see hematology note. The patient will continue with IV fluids. Analgesia increased again. Continue hydroxyurea as ordered. 06/12/2018 patient hemoglobin is 9.0. Patient is on IV fluids at 150 cc/h. Pain management as per Dr. Medellin. (2) Joint pain Qualifiers: Joint pain location: knee Laterality: bilateral Qualified Code(s): M25.561 - Pain in right knee; M25.562 - Pain in left knee Is this a current diagnosis for this admission?: Yes Plan: Warm compresses seem to help slightly. The patient does have anti- inflammatories ordered. Analgesia as above. 06/12/2018-patient is still complaining of joint pains. he Is receiving warm c ompressions and also on anti-inflammatory medications. Plan is to continue the present management. (3) Depression Qualifiers: Depression Type: unspecified Qualified Code(s): F32.9 - Major depressive disorder, single episode, unspecified Is this a current diagnosis for this admission?: Yes Plan: During this encounter I asked the patient if he felt overwhelmed. He has 2 daughters. He finds it difficult to explain to them his illness and his multiple stays in the hospital. He did become tearful during the encounter. I did not suggest any antidepressant medication at this time but will discuss further with the patient. 06/12/2018-patient is given the history of depression and difficulty in coping with the chronic illness he has and multiple hospital admissions. I am going to put him on citalopram 20 mg p.o. daily. (4) Avascular necrosis of hip Qualifiers: Laterality: right Qualified Code(s): M87.051 - Idiopathic aseptic necrosis of right femur Is this a current diagnosis for this admission?: Yes Plan: 06/12/2018-to continue the pain management as per Dr. Medellin's recommendations. - Time Time Spent with patient: 15-24 minutes Medications reviewed and adjusted accordingly: Yes Anticipated discharge: Home
[2018-06-12] MEDS: METHADONE HCL 10 MG TABLET PO SCH ×4 (10:29→21:27)
[2018-06-12] MEDS: HYDROXYUREA 500 MG CAPSULE PO SCH (10:30)
[2018-06-12] MEDS: FOLIC ACID 1 MG TABLET PO SCH (10:30)
[2018-06-12] MEDS ORDERED: (PENDING PHARMACY ID) (Methadone Hcl [Dolophine Hcl] 5 MG) PO SCH (18:00)
[2018-06-12] MEDS: PSEUDOEPHEDRINE HCL 30 MG TABLET PO SCH (18:09)
[2018-06-13] MEDS: DIPHENHYDRAMINE HCL 50 MG/ML VIAL IV PRN ×8 (01:29→17:29)
[2018-06-13] MEDS: HYDROMORPHONE HCL INJ/PF 2 MG/ML AMPULE IV PRN ×10 (01:29→22:55)
[2018-06-13] MEDS: NORMAL SALINE 1000 ML 1,000 ML IV PRN ×2 (06:15→13:50)
--- NOTE | 2018-06-13 08:02 | PDOC PROGRESS REPORT ---
Subjective Progress Note for:: 06/13/18 Subjective:: No acute events overnight, patient feels pain control is appropriate currently did have a bowel movement. Reason For Visit: SICKLE CELL CRISIS Physical Exam Vital Signs: Temp Pulse Resp BP Pulse Ox 97.8 F 73 16 126/80 H 100 06/12/18 23:22 06/12/18 23:22 06/12/18 23:22 06/12/18 23:22 06/12/18 23:22 Intake & Output 06/12/18 06/13/18 06/14/18 06:59 06:59 06:59 Intake Total 4492 6156 Output Total 1800 0835 Balance 2692 1501 Weight 80.2 kg 84.5 kg General appearance: PRESENT: no acute distress, well-developed, well-nourished Head exam: PRESENT: atraumatic, normocephalic Eye exam: PRESENT: conjunctiva pink, EOMI, PERRLA. ABSENT: scleral icterus Ear exam: PRESENT: normal external ear exam Mouth exam: PRESENT: moist, tongue midline Neck exam: ABSENT: carotid bruit, JVD, lymphadenopathy, thyromegaly Respiratory exam: PRESENT: clear to auscultation anastasiya. ABSENT: rales, rhonchi, wheezes Cardiovascular exam: PRESENT: RRR. ABSENT: diastolic murmur, rubs, systolic murmur Pulses: PRESENT: normal dorsalis pedis pul Vascular exam: PRESENT: normal capillary refill GI/Abdominal exam: PRESENT: normal bowel sounds, soft. ABSENT: distended, guarding, mass, organolmegaly, rebound, tenderness Rectal exam: PRESENT: deferred Extremities exam: PRESENT: full ROM. ABSENT: calf tenderness, clubbing, pedal e malika Neurological exam: PRESENT: alert, awake, oriented to person, oriented to place, oriented to time, oriented to situation, CN II-XII grossly intact. ABSENT: motor sensory deficit Psychiatric exam: PRESENT: appropriate affect, normal mood. ABSENT: homicidal ideation, suicidal ideation Skin exam: PRESENT: dry, intact, warm. ABSENT: cyanosis, rash Results Laboratory Results: 06/10/18 05:15 06/10/18 05:15 06/11/18 05:05 Creatine Kinase 65 Assessment & Plan - Diagnosis (1) Sickle cell crisis Is this a current diagnosis for this admission?: Yes Plan: Continue current pain control, continue current supportive measures, aggressive IV hydration over the next 48 hours. 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
--- NOTE | 2018-06-13 09:43 | PDOC PROGRESS REPORT ---
Subjective Progress Note for:: 06/13/18 Subjective:: 06/12/2018-this 37-year-old male with history of sickle cell anemia admitted with sickle cell crisis. He is still in considerable amount of pain. Dr. Medellin saw the patient this morning and made adjustments in the pain medications. Patient is also on aggressive IV fluid replacement. 06/13/2018-no acute events in the last 24 hours. Patient is afebrile. Patient is comfortably sleeping in the bed. Reason For Visit: SICKLE CELL CRISIS Physical Exam Vital Signs: Temp Pulse Resp BP Pulse Ox 98.0 F 72 18 129/86 H 100 06/13/18 07:29 06/13/18 07:29 06/13/18 07:29 06/13/18 07:29 06/13/18 07:29 Intake & Output 06/12/18 06/13/18 06/14/18 06:59 06:59 06:59 Intake Total 4492 6156 Output Total 1800 4655 Balance 2692 1501 Weight 80.2 kg 84.5 kg General appearance: PRESENT: no acute distress Head exam: PRESENT: atraumatic Eye exam: PRESENT: PERRLA Mouth exam: PRESENT: moist, tongue midline Neck exam: ABSENT: carotid bruit, JVD, lymphadenopathy, thyromegaly Respiratory exam: PRESENT: clear to auscultation anastasiya. ABSENT: rales, rhonchi, wheezes Cardiovascular exam: PRESENT: RRR. ABSENT: diastolic murmur, rubs, systolic murmur GI/Abdominal exam: PRESENT: normal bowel sounds, soft. ABSENT: distended, guarding, mass, organolmegaly, rebound, tenderness Neurological exam: PRESENT: alert, awake, oriented to person, oriented to place, oriented to time, oriented to situation, CN II-XII grossly intact. ABSENT: motor sensory deficit Psychiatric exam: PRESENT: appropriate affect, normal mood. ABSENT: homicidal ideation, suicidal ideation Results Laboratory Results: 06/10/18 05:15 06/10/18 05:15 06/11/18 05:05 Creatine Kinase 65 Assessment & Plan - Diagnosis (1) Sickle cell crisis Is this a current diagnosis for this admission?: Yes Plan: Please also see hematology note. The patient will continue with IV fluids. Analgesia increased again. Continue hydroxyurea as ordered. 06/12/2018 patient hemoglobin is 9.0. Patient is on IV fluids at 150 cc/h. Pain management as per Dr. Medellin. 06/13/2018-patient is hemoglobin is stable around 9. On IV fluids 750 cc/h. Continue to give aggressive hydration as per Dr. Medellin's recommendations. He is getting IV pain medications every 2 hourly. (2) Joint pain Qualifiers: Joint pain location: knee Laterality: bilateral Qualified Code(s): M25.561 - Pain in right knee; M25.562 - Pain in left knee Is this a current diagnosis for this admission?: Yes Plan: Warm compresses seem to help slightly. The patient does have anti-inflammato viviane ordered. Analgesia as above. 06/12/2018-patient is still complaining of joint pains. he Is receiving warm compressions and also on anti-inflammatory medications. Plan is to continue the present management. 06/13/2018-patient is comfortably sleeping. Not in distress. Plan is to continue the present management. (3) Depression Qualifiers: Depression Type: unspecified Qualified Code(s): F32.9 - Major depressive disorder, single episode, unspecified Is this a current diagnosis for this admission?: Yes Plan: During this encounter I asked the patient if he felt overwhelmed. He has 2 daughters. He finds it difficult to explain to them his illness and his multi ple stays in the hospital. He did become tearful during the encounter. I did not suggest any antidepressant medication at this time but will discuss further with the patient. 06/12/2018-patient is given the history of depression and difficulty in coping with the chronic illness he has and multiple hospital admissions. I am going to put him on citalopram 20 mg p.o. daily. 06/13/2018-patient is given the history of depression he was started on citalopram 20 mg p.o. daily. No signs and symptoms of depression during the hospital stay. (4) Avascular necrosis of hip Qualifiers: Laterality: right Qualified Code(s): M87.051 - Idiopathic aseptic necrosis of right femur Is this a current diagnosis for this admission?: Yes Plan: 06/12/2018-to continue the pain management as per Dr. Medellin's recommendations. 06/13/2018-patient is getting aggressive IV hydration and IV pain medications as per Dr. Jayaram's recommendations. - Time Time Spent with patient: 15-24 minutes Medications reviewed and adjusted accordingly: Yes Anticipated discharge: Home
[2018-06-13] MEDS: FOLIC ACID 1 MG TABLET PO SCH ×2 (10:45)
[2018-06-13] MEDS: METHADONE HCL 10 MG TABLET PO SCH ×4 (10:46→22:55)
[2018-06-13] MEDS: CITALOPRAM HYDROBROMIDE 20 MG TABLET PO SCH (10:47)
[2018-06-13] MEDS: HYDROXYUREA 500 MG CAPSULE PO SCH ×2 (10:48)
[2018-06-13] MEDS: PSEUDOEPHEDRINE HCL 30 MG TABLET PO SCH (17:31)
[2018-06-14] MEDS: HYDROMORPHONE HCL INJ/PF 2 MG/ML AMPULE IV PRN ×11 (01:00→23:24)
[2018-06-14] MEDS: DIPHENHYDRAMINE HCL 50 MG/ML VIAL IV PRN ×9 (06:03→23:25)
--- NOTE | 2018-06-14 09:00 | PDOC PROGRESS REPORT ---
Subjective Progress Note for:: 06/14/18 Subjective:: 06/12/2018-this 37-year-old male with history of sickle cell anemia admitted with sickle cell crisis. He is still in considerable amount of pain. Dr. Medellin saw the patient this morning and made adjustments in the pain medications. Patient is also on aggressive IV fluid replacement. 06/13/2018-no acute events in the last 24 hours. Patient is afebrile. Patient is comfortably sleeping in the bed. 2018 no acute events in the last 24 hours. Patient is afebrile. Requesting Ensure with meals. As per the patient his pain is getting better. Reason For Visit: SICKLE CELL CRISIS Physical Exam Vital Signs: Temp Pulse Resp BP Pulse Ox 98.4 F 77 17 147/96 H 93 06/14/18 07:17 06/14/18 07:17 06/14/18 07:17 06/14/18 07:17 06/14/18 07:17 Intake & Output 06/13/18 06/14/18 06/15/18 06:59 06:59 06:59 Intake Total 6156 2266 Output Total 4655 Balance 1501 2266 Weight 84.5 kg General appearance: PRESENT: mild distress Head exam: PRESENT: atraumatic Eye exam: PRESENT: PERRLA Mouth exam: PRESENT: moist Neck exam: ABSENT: carotid bruit, JVD, lymphadenopathy, thyromegaly Respiratory exam: PRESENT: clear to auscultation anastasiya. ABSENT: rales, rhonchi, wheezes Cardiovascular exam: PRESENT: RRR. ABSENT: diastolic murmur, rubs, systolic murmur GI/Abdominal exam: PRESENT: normal bowel sounds, soft. ABSENT: distended, guarding, mass, organolmegaly, rebound, tenderness Extremities exam: PRESENT: full ROM. ABSENT: calf tenderness, clubbing, pedal edema Neurological exam: PRESENT: alert, awake, oriented to person, oriented to place, oriented to time, oriented to situation, CN II-XII grossly intact. ABSENT: motor sensory deficit Psychiatric exam: PRESENT: appropriate affect, normal mood. ABSENT: homicidal ideation, suicidal ideation Results Laboratory Results: 06/10/18 05:15 06/10/18 05:15 06/11/18 05:05 Creatine Kinase 65 Assessment & Plan - Diagnosis (1) Sickle cell crisis Is this a current diagnosis for this admission?: Yes Plan: Please also see hematology note. The patient will continue with IV fluids. Analgesia increased again. Continue hydroxyurea as ordered. 06/12/2018 patient hemoglobin is 9.0. Patient is on IV fluids at 150 cc/h. Pain management as per Dr. Medellin. 06/13/2018-patient is hemoglobin is stable around 9. On IV fluids 150 cc/h. Continue to give aggressive hydration as per Dr. Medellin's recommendations. He is getting IV pain medications every 2 hourly. 06/14/2018 patient his hemoglobin is stable around 9. He is receiving IV fluids at the rate of 150 cc/h. We will continue IV hydration and pain management as per Dr. Medellin's recommendations. (2) Joint pain Qualifiers: Joint pain location: knee Laterality: bilateral Qualified Code(s): M25.561 - Pain in right knee; M25.562 - Pain in left knee Is this a current diagnosis for this admission?: Yes Plan: Warm compresses seem to help slightly. The patient does have anti- inflammatories ordered. Analgesia as above. 06/12/2018-patient is still complaining of joint pains. he Is receiving warm compressions and also on anti-inflammatory medications. Plan is to continue the present management. 06/13/2018-patient is comfortably sleeping. Not in distress. Plan is to continue the present management. 06/14/2017-comfortable in the bed communicating well as per the patient is pending getting much better. Plan is to continue the present management. (3) Depression Qualifiers: Depression Type: unspecified Qualified Code(s): F32.9 - Major depressive disorder, single episode, unspecified Is this a current diagnosis for this admission?: Yes Plan: During this encounter I asked the patient if he felt overwhelmed. He has 2 daughters. He finds it difficult to explain to them his illness and his multiple stays in the hospital. He did become tearful during the encounter. I did not suggest any antidepressant medication at this time but will discuss further with the patient. 06/12/2018-patient is given the history of depression and difficulty in coping with the chronic illness he has and multiple hospital admissions. I am going to put him on citalopram 20 mg p.o. daily. 06/13/2018-patient is given the history of depression he was started on citalopram 20 mg p.o. daily. No signs and symptoms of depression during the [facility] stay. 06/14/2017-plan is to increase the citalopram to 40 mg p.o. daily patient denies any complaints today he thinks medication is working. (4) Avascular necrosis of hip Qualifiers: Laterality: right Qualified Code(s): M87.051 - Idiopathic aseptic necrosis of right femur Is this a current diagnosis for this admission?: Yes Plan: 06/12/2018-to continue the pain management as per Dr. Medellin's recommendations. 06/13/2018-patient is getting aggressive IV hydration and IV pain medications as per Dr. Medellin's recommendations. 06/14/2018-patient has history of avascular necrosis of the hip secondary to sickle cell anemia and IV hydration and pain management as per Dr. Medellin's recommendations. - Time Time Spent with patient: 15-24 minutes Medications reviewed and adjusted accordingly: Yes Anticipated discharge: Home
[2018-06-14] MEDS: METHADONE HCL 10 MG TABLET PO SCH ×4 (10:02→23:25)
[2018-06-14] MEDS: CITALOPRAM HYDROBROMIDE 20 MG TABLET PO SCH (10:02)
[2018-06-14] MEDS: HYDROXYUREA 500 MG CAPSULE PO SCH (10:03)
[2018-06-14] MEDS: FOLIC ACID 1 MG TABLET PO SCH ×2 (10:03)
[2018-06-14] MEDS: NORMAL SALINE 1000 ML 1,000 ML IV PRN ×2 (12:05→17:48)
--- NOTE | 2018-06-14 12:27 | PDOC PROGRESS REPORT ---
Subjective Progress Note for:: 06/14/18 Subjective:: Patient still with pain. Unable to walk in [place] or sit up in chair comfortably. He is trying to eat and drink. No complaints of itching, nausea, or other problems. Reason For Visit: SICKLE CELL CRISIS Physical Exam Vital Signs: Temp Pulse Resp BP Pulse Ox 98.4 F 77 17 147/96 H 93 06/14/18 07:17 06/14/18 07:17 06/14/18 07:17 06/14/18 07:17 06/14/18 07:17 Intake & Output 06/13/18 06/14/18 06/15/18 06:59 06:59 06:59 Intake Total 6156 2266 Output Total 4655 Balance 1501 2266 Weight 84.5 kg General appearance: PRESENT: no acute distress Head exam: PRESENT: normocephalic Respiratory exam: PRESENT: clear to auscultation anastasiya, unlabored Cardiovascular exam: PRESENT: RRR Extremities exam: ABSENT: pedal edema Skin exam: PRESENT: normal color Results Laboratory Results: 06/10/18 05:15 06/10/18 05:15 06/11/18 05:05 Creatine Kinase 65 Assessment & Plan - Diagnosis (1) Sickle cell crisis Is this a current diagnosis for this admission?: Yes Plan: Continue fluids, oxygen, and pain medications without changes today. He was started on Celexa. I agree with this. Will follow. (2) DVT prophylaxis Is this a current diagnosis for this admission?: Yes Plan: I will start Lovenox prophyaxis as these patient are prone to DVT/PE. No current contraindication to this.
[2018-06-14] MEDS: FONDAPARINUX SODIUM INJ 2.5 MG/0.5 ML DISP.SYRIN SUBCUT SCH (17:14)
[2018-06-14] MEDS: PSEUDOEPHEDRINE HCL 30 MG TABLET PO SCH (17:45)
[2018-06-15] MEDS: HYDROMORPHONE HCL INJ/PF 2 MG/ML AMPULE IV PRN ×10 (02:51→22:45)
[2018-06-15] MEDS: DIPHENHYDRAMINE HCL 50 MG/ML VIAL IV PRN ×4 (02:51→22:46)
[2018-06-15 06:48] LABS: HEMOGLOBIN 8.6 g/dL (13.5-17.0); MEAN CORPUSCULAR HEMOGLOBIN 33.7 pg (27.0-33.4); MEAN CORPUSCULAR HGB CONC 35.9 g/dL (32.0-36.0); MEAN CORPUSCULAR VOLUME 94 fl (80-97); PLATELET COUNT 367 10^3/uL (150-450); RED BLOOD COUNT 2.56 10^6/uL (4.35-5.55); RED CELL DISTRIBUTION WIDTH 20.2 % (11.5-14.0); WHITE BLOOD COUNT 5.9 10^3/uL (4.0-10.5)
[2018-06-15 07:06] LABS: ALANINE AMINOTRANSFERASE 23 U/L (21-72); ALKALINE PHOSPHATASE 78 U/L (38-126); ANION GAP 8 (5-19); ASPARTATE AMINO TRANSFERASE 30 U/L (17-59); BILIRUBIN,DIRECT 0.2 mg/dL (0.0-0.4); BILIRUBIN,TOTAL 1.2 mg/dL (0.2-1.3); BLOOD UREA NITROGEN 4 mg/dL (7-20); CALCIUM 8.9 mg/dL (8.4-10.2); CARBON DIOXIDE 32 mmol/L (22-30); CHLORIDE 102 mmol/L (98-107); GLUCOSE 98 mg/dL (75-110); SODIUM 141.9 mmol/L (137-145); TOTAL PROTEIN 7.4 g/dL (6.3-8.2)
[2018-06-15 07:22] LABS: ABSOLUTE LYMPHOCYTES# (MANUAL) 2.1 10^3/uL (0.5-4.7); ABSOLUTE MONOCYTES # (MANUAL) 0.6 10^3/uL (0.1-1.4); ABSOLUTE NEUTROPHILS# (MANUAL) 2.9 10^3/uL (1.7-8.2); BASOPHILS % (MANUAL) 1 % (0-2); EOSINOPHILS % (MANUAL) 4 % (0-6); LYMPHOCYTES % (MANUAL) 33 % (13-45); MONOCYTES % (MANUAL) 10 % (3-13); NUCLEATED RED BLOOD CELLS 1 /100 WBC (0); SEGMENTED NEUTROPHILS % (MAN) 49 % (42-78); TOTAL CELLS COUNTED 100
[2018-06-15 07:24] LABS: ANISOCYTOSIS 2+; PLATELET COMMENT ADEQUATE; POIKILOCYTOSIS 2+; POLYCHROMASIA SLIGHT; SICKLE RED CELLS 1+; TARGET CELLS 1+; TEAR DROP CELLS SLIGHT
--- NOTE | 2018-06-15 08:59 | PDOC PROGRESS REPORT ---
Subjective Progress Note for:: 06/15/18 Subjective:: 06/12/2018-this 37-year-old male with history of sickle cell anemia admitted with sickle cell crisis. He is still in considerable amount of pain. Dr. Medellin saw the patient this morning and made adjustments in the pain medications. Patient is also on aggressive IV fluid replacement. 06/13/2018-no acute events in the last 24 hours. Patient is afebrile. Patient is comfortably sleeping in the bed. 06/14/2018 no acute events in the last 24 hours. Patient is afebrile. Requesting Ensure with meals. As per the patient his pain is getting better. 06/15/2018-no acute events in the last 24 hours. Patient is afebrile. He is getting IV hydration and IV pain medications for sickle cell crisis. He thinks he is receiving folic acid twice a day I reviewed the chart he is presently on folic acid 1 mg daily. Reason For Visit: SICKLE CELL CRISIS Physical Exam Vital Signs: Temp Pulse Resp BP Pulse Ox 98.5 F 79 16 127/79 H 97 06/15/18 07:37 06/15/18 07:37 06/15/18 07:37 06/15/18 07:37 06/15/18 07:37 Intake & Output 06/14/18 06/15/18 06/16/18 06:59 06:59 06:59 Intake Total 2266 2108 Output Total 2200 Balance 2266 -92 Weight 91.6 kg General appearance: PRESENT: mild distress Head exam: PRESENT: atraumatic Eye exam: PRESENT: PERRLA Mouth exam: PRESENT: moist, tongue midline Neck exam: ABSENT: carotid bruit, JVD, lymphadenopathy, thyromegaly Respiratory exam: PRESENT: clear to auscultation anastasiya. ABSENT: rales, rhonchi, wheezes Cardiovascular exam: PRESENT: RRR, tachycardia. ABSENT: diastolic murmur, rubs, systolic murmur GI/Abdominal exam: PRESENT: normal bowel sounds, soft. ABSENT: distended, guarding, mass, organolmegaly, rebound, tenderness Extremities exam: PRESENT: full ROM. ABSENT: calf tenderness, clubbing, pedal edema Neurological exam: PRESENT: alert, awake, oriented to person, oriented to place, oriented to time, oriented to situation, CN II-XII grossly intact. ABSENT: motor sensory deficit Psychiatric exam: PRESENT: appropriate affect, normal mood. ABSENT: homicidal ideation, suicidal ideation Results Laboratory Results: 06/15/18 05:20 06/15/18 05:20 06/15/18 06/15/18 05:20 05:20 WBC 5.9 RBC 2.56 L Hgb 8.6 L Hct 24.0 L MCV 94 MCH 33.7 H MCHC 35.9 RDW 20.2 H Plt Count 367 Seg Neutrophils % Not Reportable Lymphocytes % Not Reportable Monocytes % Not Reportable Eosinophils % Not Reportable Basophils % Not Reportable Absolute Neutrophils Not Reportable Absolute Lymphocytes Not Reportable Absolute Monocytes Not Reportable Absolute Eosinophils Not Reportable Absolute Basophils Not Reportable Sodium 141.9 Potassium 4.0 Chloride 102 Carbon Dioxide 32 H Anion Gap 8 BUN 4 L Creatinine 0.59 Est GFR ( Amer) > 60 Est GFR (Non-Af Amer) > 60 Glucose 98 Calcium 8.9 Magnesium 1.7 Total Bilirubin 1.2 AST 30 ALT 23 Alkaline Phosphatase 78 Total Protein 7.4 Albumin 4.0 06/11/18 05:05 Creatine Kinase 65 Assessment & Plan - Diagnosis (1) Sickle cell crisis Is this a current diagnosis for this admission?: Yes Plan: Please also see hematology note. The patient will continue with IV fluids. Cyndee lgesia increased again. Continue hydroxyurea as ordered. 06/12/2018 patient hemoglobin is 9.0. Patient is on IV fluids at 150 cc/h. Pain management as per Dr. Medellin. 06/13/2018-patient is hemoglobin is stable around 9. On IV fluids 150 cc/h. Continue to give aggressive hydration as per Dr. Medellin's recommendations. He is getting IV pain medications every 2 hourly. 06/14/2018 patient his hemoglobin is stable around 9. He is receiving IV fluids at the rate of 150 cc/h. We will continue IV hydration and pain management as per Dr. Medellin's recommendations. 06/15/2018 patient hemoglobin is 8.6 today stable he is on IV fluids at 150 cc/h he is on hydroxyurea, methadone, IV Dilaudid. We will continue those medications as per hematology recommendations. (2) Joint pain Qualifiers: Joint pain location: knee Laterality: bilateral Qualified Code(s): M25.561 - Pain in right knee; M25.562 - Pain in left knee Is this a current diagnosis for this admission?: Yes Plan: Warm compresses seem to help slightly. The patient does have anti- inflammatories ordered. Analgesia as above. 06/12/2018-patient is still complaining of joint pains. he Is receiving warm compressions and also on anti-inflammatory medications. Plan is to continue the present management. 06/13/2018-patient is comfortably sleeping. Not in distress. Plan is to continue the present management. 06/14/2017-comfortable in the bed communicating well as per the patient is pending getting much better. Plan is to continue the present management. 06/15/2018-patient states joint pains are much better today. Plan is to continue the present management. (3) Depression Qualifiers: Depression Type: unspecified Qualified Code(s): F32.9 - Major depressive disorder, single episode, unspecified Is this a current diagnosis for this admission?: Yes Plan: During this encounter I asked the patient if he felt overwhelmed. He has 2 daughters. He finds it difficult to explain to them his illness and his multiple stays in the hospital. He did become tearful during the encounter. I did not suggest any antidepressant medication at this time but will discuss further with the patient. 06/12/2018-patient is given the history of depression and difficulty in coping with the chronic illness he has and multiple hospital admissions. I am going to put him on citalopram 20 mg p.o. daily. 06/13/2018-patient is given the history of depression he was started on citalopram 20 mg p.o. daily. No signs and symptoms of depression during the [facility] stay. 06/14/2017-plan is to increase the citalopram to 40 mg p.o. daily patient denies any complaints today he thinks medication is working. 06/15/2018-patient is on citalopram 40 mg p.o. daily he denies any symptoms of depression. (4) Avascular necrosis of hip Qualifiers: Laterality: right Qualified Code(s): M87.051 - Idiopathic aseptic necrosis of right femur Is this a current diagnosis for this admission?: Yes Plan: 06/12/2018-to continue the pain management as per Dr. Medellin's recommendations. 06/13/2018-patient is getting aggressive IV hydration and IV pain medications as per Dr. Medellin's recommendations. 06/14/2018-patient has history of avascular necrosis of the hip secondary to sickle cell anemia and IV hydration and pain management as per Dr. Medellin's recommendations. 06/15/2018 plan is to continue the present management. - Time Time Spent with patient: 15-24 minutes Anticipated discharge: Home
[2018-06-15] MEDS: NORMAL SALINE 1000 ML 1,000 ML IV PRN ×3 (09:16→22:42)
[2018-06-15] MEDS: HYDROXYUREA 500 MG CAPSULE PO SCH (09:18)
[2018-06-15] MEDS: CITALOPRAM HYDROBROMIDE 20 MG TABLET PO SCH (09:18)
[2018-06-15] MEDS: METHADONE HCL 10 MG TABLET PO SCH ×4 (09:18→21:30)
[2018-06-15] MEDS: FOLIC ACID 1 MG TABLET PO SCH (09:18)
--- NOTE | 2018-06-15 10:02 | PDOC PROGRESS REPORT ---
Subjective Progress Note for:: 06/15/18 Subjective:: Patient state sthat his pain is improveing. He is now able to walk a few feet to the [place]. He is still having dyspnea, which is concerning. Reason For Visit: SICKLE CELL CRISIS Physical Exam Vital Signs: Temp Pulse Resp BP Pulse Ox 98.5 F 79 16 127/79 H 97 06/15/18 07:37 06/15/18 07:37 06/15/18 07:37 06/15/18 07:37 06/15/18 07:37 Intake & Output 06/14/18 06/15/18 06/16/18 06:59 06:59 06:59 Intake Total 2266 2108 Output Total 2200 Balance 2266 -92 Weight 91.6 kg General appearance: PRESENT: well-developed, well-nourished Head exam: PRESENT: normocephalic Respiratory exam: PRESENT: crackles - Bibasilar Cardiovascular exam: PRESENT: RRR Neurological exam: PRESENT: alert, awake Psychiatric exam: PRESENT: appropriate affect Skin exam: PRESENT: normal color Results Laboratory Results: 06/15/18 05:20 06/15/18 05:20 06/15/18 06/15/18 05:20 05:20 WBC 5.9 RBC 2.56 L Hgb 8.6 L Hct 24.0 L MCV 94 MCH 33.7 H MCHC 35.9 RDW 20.2 H Plt Count 367 Seg Neutrophils % Not Reportable Lymphocytes % Not Reportable Monocytes % Not Reportable Eosinophils % Not Reportable Basophils % Not Reportable Absolute Neutrophils Not Reportable Absolute Lymphocytes Not Reportable Absolute Monocytes Not Reportable Absolute Eosinophils Not Reportable Absolute Basophils Not Reportable Sodium 141.9 Potassium 4.0 Chloride 102 Carbon Dioxide 32 H Anion Gap 8 BUN 4 L Creatinine 0.59 Est GFR ( Amer) > 60 Est GFR (Non-Af Amer) > 60 Glucose 98 Calcium 8.9 Magnesium 1.7 Total Bilirubin 1.2 AST 30 ALT 23 Alkaline Phosphatase 78 Total Protein 7.4 Albumin 4.0 06/11/18 05:05 Creatine Kinase 65 Assessment & Plan - Diagnosis (1) Sickle cell crisis Is this a current diagnosis for this admission?: Yes Plan: Continue Oxygen, fluids, pain meds without changes. Labs slowly improving (2) DVT prophylaxis Is this a current diagnosis for this admission?: Yes Plan: Arixtra started (3) Dyspnea Is this a current diagnosis for this admission?: Yes Plan: Will have IS placed at [facility] and encourage use. Will check CXR.
[2018-06-15] MEDS: FONDAPARINUX SODIUM INJ 2.5 MG/0.5 ML DISP.SYRIN SUBCUT SCH (11:31)
--- NOTE | 2018-06-15 12:17 | RADIOLOGY REPORT (SQ) ---
EXAM DESCRIPTION: CHEST SINGLE VIEW COMPLETED DATE/TIME: 06/15/2018 11:24 am REASON FOR STUDY: sickle cell, oxygen required COMPARISON: 06/09/2018 TECHNIQUE: Single frontal radiographic view of the chest acquired. NUMBER OF VIEWS: One view. LIMITATIONS: None. FINDINGS: LUNGS AND PLEURA: No pneumothorax. Increased interstitial -alveolar opacities in both cristofer g bases, right greater than left. Probable small right pleural effusion. MEDIASTINUM AND HILAR STRUCTURES: Stable. HEART AND VASCULAR STRUCTURES: Similar mild cardiomegaly and increased vascularity. BONES: No acute findings. HARDWARE: Left chest port. OTHER: No other significant finding. IMPRESSION: Increased interstitial -alveolar opacities in both lung bases, right greater than left. Probable small right pleural effusion. TECHNICAL DOCUMENTATION: JOB ID: [id number] 2010 [employer]- All Rights Reserved Reading location - IP/workstation name: [employer]
[2018-06-15] MEDS: PSEUDOEPHEDRINE HCL 30 MG TABLET PO SCH (18:14)
[2018-06-16] MEDS: DIPHENHYDRAMINE HCL 50 MG/ML VIAL IV PRN ×7 (00:56→18:33)
[2018-06-16] MEDS: HYDROMORPHONE HCL INJ/PF 2 MG/ML AMPULE IV PRN ×10 (00:58→22:46)
[2018-06-16 07:13] LABS: HEMATOCRIT 23.7 % (37.9-51.0); HEMOGLOBIN 8.5 g/dL (13.5-17.0); MEAN CORPUSCULAR HEMOGLOBIN 33.3 pg (27.0-33.4); MEAN CORPUSCULAR HGB CONC 35.8 g/dL (32.0-36.0); MEAN CORPUSCULAR VOLUME 93 fl (80-97); PLATELET COUNT 335 10^3/uL (150-450); RED BLOOD COUNT 2.54 10^6/uL (4.35-5.55); RED CELL DISTRIBUTION WIDTH 20.2 % (11.5-14.0); WHITE BLOOD COUNT 5.3 10^3/uL (4.0-10.5)
[2018-06-16 07:28] LABS: ALANINE AMINOTRANSFERASE 17 U/L (21-72); ALBUMIN 3.9 g/dL (3.5-5.0); ALKALINE PHOSPHATASE 93 U/L (38-126); ANION GAP 8 (5-19); ASPARTATE AMINO TRANSFERASE 35 U/L (17-59); BILIRUBIN,DIRECT 0.4 mg/dL (0.0-0.4); BILIRUBIN,TOTAL 1.3 mg/dL (0.2-1.3); BLOOD UREA NITROGEN 6 mg/dL (7-20); CALCIUM 8.8 mg/dL (8.4-10.2); CARBON DIOXIDE 31 mmol/L (22-30); CHLORIDE 104 mmol/L (98-107); GLUCOSE 79 mg/dL (75-110); POTASSIUM 4.2 mmol/L (3.6-5.0); SODIUM 143.4 mmol/L (137-145); TOTAL PROTEIN 7.4 g/dL (6.3-8.2)
[2018-06-16 08:08] LABS: ABSOLUTE LYMPHOCYTES# (MANUAL) 2.1 10^3/uL (0.5-4.7); ABSOLUTE MONOCYTES # (MANUAL) 0.7 10^3/uL (0.1-1.4); ABSOLUTE NEUTROPHILS# (MANUAL) 2.4 10^3/uL (1.7-8.2); BASOPHILS % (MANUAL) 0 % (0-2); EOSINOPHILS % (MANUAL) 2 % (0-6); LYMPHOCYTES % (MANUAL) 35 % (13-45); MONOCYTES % (MANUAL) 13 % (3-13); NUCLEATED RED BLOOD CELLS 1 /100 WBC (0); SEGMENTED NEUTROPHILS % (MAN) 46 % (42-78); TOTAL CELLS COUNTED 100
[2018-06-16 08:13] LABS: ANISOCYTOSIS 4+; HYPOCHROMASIA SLIGHT; PLATELET COMMENT ADEQUATE; PLATELET LARGE PRESENT; POIKILOCYTOSIS 2+; POLYCHROMASIA 1+; SCHISTOCYTES 1+; TARGET CELLS 1+
--- NOTE | 2018-06-16 08:41 | PDOC PROGRESS REPORT ---
Subjective Progress Note for:: 06/16/18 Subjective:: Patient still had considerable pain, he requested lower doses of Dilaudid and received a 2 mg dose but still had severe pain thereafter so I encouraged him to go ahead and take 3 mg dose. He was getting some shortness of breath, chest x- ray indicated some increased opacities. May be getting a little bit overloaded, I will decrease his IV fluids to 75/h. Reason For Visit: SICKLE CELL CRISIS Physical Exam Vital Signs: Temp Pulse Resp BP Pulse Ox 98.9 F 78 16 139/83 H 100 06/16/18 07:25 06/16/18 07:25 06/16/18 07:25 06/16/18 07:25 06/16/18 07:25 Intake & Output 06/15/18 06/16/18 06/17/18 06:59 06:59 06:59 Intake Total 2108 2931 Output Total 2200 3225 Balance -92 -294 Weight 91.6 kg 91.5 kg General appearance: PRESENT: no acute distress, well-developed, well-nourished Head exam: PRESENT: atraumatic, normocephalic Eye exam: PRESENT: conjunctiva pink, EOMI, PERRLA. ABSENT: scleral icterus Ear exam: PRESENT: normal external ear exam Mouth exam: PRESENT: moist, tongue midline Neck exam: ABSENT: carotid bruit, JVD, lymphadenopathy, thyromegaly Respiratory exam: PRESENT: clear to auscultation anastasiya. ABSENT: rales, rhonchi, wheezes Cardiovascular exam: PRESENT: RRR. ABSENT: diastolic murmur, rubs, systolic murmur Pulses: PRESENT: normal dorsalis pedis pul Vascular exam: PRESENT: normal capillary refill GI/Abdominal exam: PRESENT: normal bowel sounds, soft. ABSENT: distended, guarding, mass, organolmegaly, rebound, tenderness Rectal exam: PRESENT: deferred Extremities exam: PRESENT: full ROM. ABSENT: calf tenderness, clubbing, pedal edema Neurological exam: PRESENT: alert, awake, oriented to person, oriented to place, oriented to time, oriented to situation, CN II-XII grossly intact. ABSENT: motor sensory deficit Psychiatric exam: PRESENT: appropriate affect, normal mood. ABSENT: homicidal ideation, suicidal ideation Skin exam: PRESENT: dry, intact, warm. ABSENT: cyanosis, rash Results Laboratory Results: 06/16/18 05:31 06/16/18 05:31 06/16/18 06/16/18 05:31 05:31 WBC 5.3 RBC 2.54 L Hgb 8.5 L Hct 23.7 L MCV 93 MCH 33.3 MCHC 35.8 RDW 20.2 H Plt Count 335 Seg Neutrophils % Not Reportable Lymphocytes % Not Reportable Monocytes % Not Reportable Eosinophils % Not Reportable Basophils % Not Reportable Absolute Neutrophils Not Reportable Absolute Lymphocytes Not Reportable Absolute Monocytes Not Reportable Absolute Eosinophils Not Reportable Absolute Basophils Not Reportable Sodium 143.4 Potassium 4.2 Chloride 104 Carbon Dioxide 31 H Anion Gap 8 BUN 6 L Creatinine 0.59 Est GFR ( Amer) > 60 Est GFR (Non-Af Amer) > 60 Glucose 79 Calcium 8.8 Magnesium 1.8 Total Bilirubin 1.3 AST 35 ALT 17 L Alkaline Phosphatase 93 Total Protein 7.4 Albumin 3.9 06/11/18 05:05 Creatine Kinase 65 Impressions: Chest X-Ray 06/15/18 00:00 IMPRESSION: Increased interstitial -alveolar opacities in both lung bases, right greater than left. Probable small right pleural effusion. 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
--- NOTE | 2018-06-16 09:47 | PDOC PROGRESS REPORT ---
Subjective Subjective:: 06/12/2018-this 37-year-old male with history of sickle cell anemia admitted with sickle cell crisis. He is still in considerable amount of pain. Dr. Medellin saw the patient this morning and made adjustments in the pain medications. Patient is also on aggressive IV fluid replacement. 06/13/2018-no acute events in the last 24 hours. Patient is afebrile. Patient is comfortably sleeping in the bed. 06/14/2018 no acute events in the last 24 hours. Patient is afebrile. Requesting Ensure with meals. As per the patient his pain is getting better. 06/15/2018-no acute events in the last 24 hours. Patient is afebrile. He is getting IV hydration and IV pain medications for sickle cell crisis. He thinks he is receiving folic acid twice a day I reviewed the chart he is presently on folic acid 1 mg daily. 06/16/2018 no acute events in the last 24 hours. Patient is afebrile. Denies any complaints today. I spoke to Dr. Medellin plan is to decrease his IV fluids rate. Reason For Visit: SICKLE CELL CRISIS Physical Exam Vital Signs: Temp Pulse Resp BP Pulse Ox 98.9 F 78 16 139/83 H 100 06/16/18 07:25 06/16/18 07:25 06/16/18 07:25 06/16/18 07:25 06/16/18 07:25 Intake & Output 06/15/18 06/16/18 06/17/18 06:59 06:59 06:59 Intake Total 2108 2931 Output Total 2200 3225 Balance -92 -294 Weight 91.6 kg 91.5 kg General appearance: PRESENT: no acute distress Head exam: PRESENT: atraumatic Eye exam: PRESENT: PERRLA Neck exam: ABSENT: carotid bruit, JVD, lymphadenopathy, thyromegaly Respiratory exam: PRESENT: clear to auscultation anastasiya. ABSENT: rales, rhonchi, wheezes Cardiovascular exam: PRESENT: RRR. ABSENT: diastolic murmur, rubs, systolic murmur GI/Abdominal exam: PRESENT: normal bowel sounds, soft. ABSENT: distended, guarding, mass, organolmegaly, rebound, tenderness Extremities exam: PRESENT: full ROM. ABSENT: calf tenderness, clubbing, pedal edema Neurological exam: PRESENT: alert, awake, oriented to person, oriented to place, oriented to time, oriented to situation, CN II-XII grossly intact. ABSENT: motor sensory deficit Psychiatric exam: PRESENT: appropriate affect, normal mood. ABSENT: homicidal i deation, suicidal ideation Results Laboratory Results: 06/16/18 05:31 06/16/18 05:31 06/16/18 06/16/18 05:31 05:31 WBC 5.3 RBC 2.54 L Hgb 8.5 L Hct 23.7 L MCV 93 MCH 33.3 MCHC 35.8 RDW 20.2 H Plt Count 335 Seg Neutrophils % Not Reportable Lymphocytes % Not Reportable Monocytes % Not Reportable Eosinophils % Not Reportable Basophils % Not Reportable Absolute Neutrophils Not Reportable Absolute Lymphocytes Not Reportable Absolute Monocytes Not Reportable Absolute Eosinophils Not Reportable Absolute Basophils Not Reportable Sodium 143.4 Potassium 4.2 Chloride 104 Carbon Dioxide 31 H Anion Gap 8 BUN 6 L Creatinine 0.59 Est GFR ( Amer) > 60 Est GFR (Non-Af Amer) > 60 Glucose 79 Calcium 8.8 Magnesium 1.8 Total Bilirubin 1.3 AST 35 ALT 17 L Alkaline Phosphatase 93 Total Protein 7.4 Albumin 3.9 06/11/18 05:05 Creatine Kinase 65 Impressions: Chest X-Ray 06/15/18 00:00 IMPRESSION: Increased interstitial -alveolar opacities in both lung bases, right greater than left. Probable small right pleural effusion. Assessment & Plan - Diagnosis (1) Sickle cell crisis Is this a current diagnosis for this admission?: Yes Plan: Please also see hematology note. The patient will continue with IV fluids. Analgesia increased again. Continue hydroxyurea as ordered. 06/12/2018 patient hemoglobin is 9.0. Patient is on IV fluids at 150 cc/h. Pain management as per Dr. Medellin. 06/13/2018-patient is hemoglobin is stable around 9. On IV fluids 150 cc/h. Continue to give aggressive hydration as per Dr. Medellin's recommendations. He is getting IV pain medications every 2 hourly. 06/14/2018 patient his hemoglobin is stable around 9. He is receiving IV fluids at the rate of 150 cc/h. We will continue IV hydration and pain management as per Dr. Medellin's recommendations. 06/15/2018 patient hemoglobin is 8.6 today stable he is on IV fluids at 150 cc/h he is on hydroxyurea, methadone, IV Dilaudid. We will continue those medications as per hematology recommendations. 06/16/2018 patient hemoglobin is 8.5. Stable. Plan is to decrease the IV fluids as per GI recommendations. Continue hydroxyurea, methadone and IV Dilaudid. He is also receiving IV Benadryl as needed. (2) Joint pain Qualifiers: Joint pain location: knee Laterality: bilateral Qualified Code(s): M25.561 - Pain in right knee; M25.562 - Pain in left knee Is this a current diagnosis for this admission?: Yes Plan: Warm compresses seem to help slightly. The patient does have anti-inf lammatories ordered. Analgesia as above. 06/12/2018-patient is still complaining of joint pains. he Is receiving warm compressions and also on anti-inflammatory medications. Plan is to continue the present management. 06/13/2018-patient is comfortably sleeping. Not in distress. Plan is to gena nue the present management. 06/14/2017-comfortable in the bed communicating well as per the patient is pending getting much better. Plan is to continue the present management. 06/15/2018-patient states joint pains are much better today. Plan is to continue the present management. 06/16/2018-patient is not complaining of any joint pains today. Presently on IV Dilaudid. Plan is to continue the present management. (3) Depression Qualifiers: Depression Type: unspecified Qualified Code(s): F32.9 - Major depressive disorder, single episode, unspecified Is this a current diagnosis for this admission?: Yes Plan: During this encounter I asked the patient if he felt overwhelmed. He has 2 daughters. He finds it difficult to explain to them his illness and his multipl e stays in the hospital. He did become tearful during the encounter. I did not suggest any antidepressant medication at this time but will discuss further with the patient. 06/12/2018-patient is given the history of depression and difficulty in coping with the chronic illness he has and multiple hospital admissions. I am going to put him on citalopram 20 mg p.o. daily. 06/13/2018-patient is given the history of depression he was started on citalopram 20 mg p.o. daily. No signs and symptoms of depression during the hospital stay. 06/14/2017-plan is to increase the citalopram to 40 mg p.o. daily patient denies any complaints today he thinks medication is working. 06/15/2018-patient is on citalopram 40 mg p.o. daily he denies any symptoms of depression. 06/16/2018-patient denies any complaints of depression. Citalopram 40 mg p.o. daily I think it is working. (4) Avascular necrosis of hip Qualifiers: Laterality: right Qualified Code(s): M87.051 - Idiopathic aseptic necrosis of right femur Is this a current diagnosis for this admission?: Yes Plan: 06/12/2018-to continue the pain management as per Dr. Medellin's recommendations. 06/13/2018-patient is getting aggressive IV hydration and IV pain medications as per Dr. Medellin's recommendations. 06/14/2018-patient has history of avascular necrosis of the hip secondary to sickle cell anemia and IV hydration and pain management as per Dr. Medellin's recommendations. 06/15/2018 plan is to continue the present management. 06/16/2018-patient has history of avascular necrosis of the hip he has chronic pain syndrome on IV Dilaudid every 2 hours and as needed basis. We will continue the current management. - Time Time Spent with patient: 15-24 minutes Medications reviewed and adjusted accordingly: Yes Anticipated discharge: Home
[2018-06-16] MEDS: FONDAPARINUX SODIUM INJ 2.5 MG/0.5 ML DISP.SYRIN SUBCUT SCH (09:56)
[2018-06-16] MEDS: METHADONE HCL 10 MG TABLET PO SCH ×4 (10:04→21:24)
[2018-06-16] MEDS: FOLIC ACID 1 MG TABLET PO SCH (10:05)
[2018-06-16] MEDS: HYDROXYUREA 500 MG CAPSULE PO SCH (10:05)
[2018-06-16] MEDS: CITALOPRAM HYDROBROMIDE 20 MG TABLET PO SCH (10:05)
[2018-06-16] MEDS: NORMAL SALINE 1000 ML 1,000 ML IV PRN ×2 (10:07→16:03)
[2018-06-16] MEDS: PSEUDOEPHEDRINE HCL 30 MG TABLET PO SCH (18:25)
[2018-06-17] MEDS: DIPHENHYDRAMINE HCL 50 MG/ML VIAL IV PRN ×10 (00:48→22:07)
[2018-06-17] MEDS: HYDROMORPHONE HCL INJ/PF 2 MG/ML AMPULE IV PRN ×10 (00:48→22:07)
[2018-06-17] MEDS: NORMAL SALINE 1000 ML 1,000 ML IV PRN ×2 (03:04→16:27)
[2018-06-17 05:35] LABS: HEMATOCRIT 24.4 % (37.9-51.0); HEMOGLOBIN 8.8 g/dL (13.5-17.0); MEAN CORPUSCULAR HEMOGLOBIN 33.1 pg (27.0-33.4); MEAN CORPUSCULAR VOLUME 92 fl (80-97); PLATELET COUNT 324 10^3/uL (150-450); RED BLOOD COUNT 2.64 10^6/uL (4.35-5.55); RED CELL DISTRIBUTION WIDTH 20.5 % (11.5-14.0); WHITE BLOOD COUNT 5.4 10^3/uL (4.0-10.5)
[2018-06-17 05:53] LABS: ALANINE AMINOTRANSFERASE 31 U/L (21-72); ALBUMIN 4.1 g/dL (3.5-5.0); ALKALINE PHOSPHATASE 86 U/L (38-126); ANION GAP 8 (5-19); ASPARTATE AMINO TRANSFERASE 48 U/L (17-59); BILIRUBIN,DIRECT 0.2 mg/dL (0.0-0.4); BILIRUBIN,TOTAL 1.4 mg/dL (0.2-1.3); BLOOD UREA NITROGEN 5 mg/dL (7-20); CALCIUM 9.1 mg/dL (8.4-10.2); CARBON DIOXIDE 31 mmol/L (22-30); CHLORIDE 103 mmol/L (98-107); GLUCOSE 102 mg/dL (75-110); POTASSIUM 4.3 mmol/L (3.6-5.0); TOTAL PROTEIN 7.8 g/dL (6.3-8.2)
[2018-06-17 06:02] LABS: ABSOLUTE LYMPHOCYTES# (MANUAL) 2.2 10^3/uL (0.5-4.7); ABSOLUTE MONOCYTES # (MANUAL) 0.4 10^3/uL (0.1-1.4); ABSOLUTE NEUTROPHILS# (MANUAL) 2.4 10^3/uL (1.7-8.2); BASOPHILS % (MANUAL) 1 % (0-2); EOSINOPHILS % (MANUAL) 7 % (0-6); LYMPHOCYTES % (MANUAL) 39 % (13-45); MONOCYTES % (MANUAL) 7 % (3-13); NUCLEATED RED BLOOD CELLS 1 /100 WBC (0); SEGMENTED NEUTROPHILS % (MAN) 44 % (42-78); TOTAL CELLS COUNTED 100
[2018-06-17 06:15] LABS: ANISOCYTOSIS 2+; OVALOCYTES SLIGHT; POIKILOCYTOSIS 3+; SCHISTOCYTES 1+; TOXIC GRANULATION SLIGHT
[2018-06-17 06:16] LABS: SICKLE RED CELLS 2+
[2018-06-17 06:17] LABS: PLATELET COMMENT ADEQUATE; PLATELET GIANT PRESENT; TEAR DROP CELLS 1+
--- NOTE | 2018-06-17 08:21 | PDOC PROGRESS REPORT ---
Subjective Progress Note for:: 06/17/18 Subjective:: Patient is getting better, pain is reducing, hemoglobin is improving. Today we will decrease his Dilaudid 2 mg every 2 hours. Thereafter if he feels good by tomorrow he could potentially discharge home on his home oral pain medication. Reason For Visit: SICKLE CELL CRISIS Physical Exam Vital Signs: Temp Pulse Resp BP Pulse Ox 97.4 F 70 17 126/80 H 96 06/16/18 23:48 06/16/18 23:48 06/16/18 23:48 06/16/18 23:48 06/16/18 23:48 Intake & Output 06/16/18 06/17/18 06/18/18 06:59 06:59 06:59 Intake Total 3931 1890 Output Total 3225 3225 Balance 706 -1335 Weight 91.5 kg General appearance: PRESENT: no acute distress, well-developed, well-nourished Head exam: PRESENT: atraumatic, normocephalic Eye exam: PRESENT: conjunctiva pink, EOMI, PERRLA. ABSENT: scleral icterus Ear exam: PRESENT: normal external ear exam Mouth exam: PRESENT: moist, tongue midline Neck exam: ABSENT: carotid bruit, JVD, lymphadenopathy, thyromegaly Respiratory exam: PRESENT: clear to auscultation anastasiya. ABSENT: rales, rhonchi, wheezes Cardiovascular exam: PRESENT: RRR. ABSENT: diastolic murmur, rubs, systolic murmur Pulses: PRESENT: normal dorsalis pedis pul Vascular exam: PRESENT: normal capillary refill GI/Abdominal exam: PRESENT: normal bowel sounds, soft. ABSENT: distended, guarding, mass, organolmegaly, rebound, tenderness Rectal exam: PRESENT: deferred Extremities exam: PRESENT: full ROM. ABSENT: calf tenderness, clubbing, pedal edema Neurological exam: PRESENT: alert, awake, oriented to person, oriented to place, oriented to time, oriented to situation, CN II-XII grossly intact. ABSENT: motor sensory deficit Psychiatric exam: PRESENT: appropriate affect, normal mood. ABSENT: homicidal ideation, suicidal ideation Skin exam: PRESENT: dry, intact, warm. ABSENT: cyanosis, rash Results Laboratory Results: 06/17/18 04:55 06/17/18 04:55 06/17/18 06/17/18 04:55 04:55 WBC 5.4 RBC 2.64 L Hgb 8.8 L Hct 24.4 L MCV 92 MCH 33.1 MCHC 36.0 RDW 20.5 H Plt Count 324 Seg Neutrophils % Not Reportable Lymphocytes % Not Reportable Monocytes % Not Reportable Eosinophils % Not Reportable Basophils % Not Reportable Absolute Neutrophils Not Reportable Absolute Lymphocytes Not Reportable Absolute Monocytes Not Reportable Absolute Eosinophils Not Reportable Absolute Basophils Not Reportable Sodium 142.0 Potassium 4.3 Chloride 103 Carbon Dioxide 31 H Anion Gap 8 BUN 5 L Creatinine 0.55 Est GFR ( Amer) > 60 Est GFR (Non-Af Amer) > 60 Glucose 102 Calcium 9.1 Magnesium 1.8 Total Bilirubin 1.4 H AST 48 ALT 31 Alkaline Phosphatase 86 Total Protein 7.8 Albumin 4.1 06/11/18 05:05 Creatine Kinase 65 Impressions: Chest X-Ray 06/15/18 00:00 IMPRESSION: Increased interstitial -alveolar opacities in both lung bases, right greater than left. Probable small right pleural effusion. Assessment & Plan - Diagnosis (1) Sickle cell crisis Is this a current diagnosis for this admission?: Yes Plan: Improving, reduce Dilaudid, monitor for another 24 hours to see how he does. Continue other supportive measures. (2) Anemia Qualifiers: Anemia type: acquired or hereditary hemolytic anemia Hemolytic anemia type: acquired, hemoglobinuria due to hemolysis from other external cause Qualified Code(s): D59.6 - Hemoglobinuria due to hemolysis from other external causes Is this a current diagnosis for this admission?: Yes Plan: Hemoglobin improving, hopefully sickling is improving. - Time Time Spent with patient: 35 or more minutes - Inpatient Certification Based on my medical assessment, after consideration of the patient's comorbidities, presenting symptoms, or acuity I expect that the services needed warrant INPATIENT care.: Yes I certify that my determination is in accordance with my understanding of Medicare's requirements for reasonable and necessary INPATIENT services [42 CFR 412.3e].: Yes Medical Necessity: Need For IV Fluids, Need for Pain Control
[2018-06-17] MEDS ORDERED: HYDROMORPHONE HCL INJ/PF 2 MG/ML AMPULE ONE (08:58)
[2018-06-17] MEDS: METHADONE HCL 10 MG TABLET PO SCH ×2 (09:03→18:04)
[2018-06-17] MEDS: CITALOPRAM HYDROBROMIDE 20 MG TABLET PO SCH (09:03)
[2018-06-17] MEDS: FOLIC ACID 1 MG TABLET PO SCH (09:03)
[2018-06-17] MEDS: FONDAPARINUX SODIUM INJ 2.5 MG/0.5 ML DISP.SYRIN SUBCUT SCH (11:04)
--- NOTE | 2018-06-17 11:55 | PDOC PROGRESS REPORT ---
Subjective Progress Note for:: 06/17/18 Subjective:: 06/12/2018-this 37-year-old male with history of sickle cell anemia admitted with sickle cell crisis. He is still in considerable amount of pain. Dr. Medellin saw the patient this morning and made adjustments in the pain medications. Patient is also on aggressive IV fluid replacement. 06/13/2018-no acute events in the last 24 hours. Patient is afebrile. Patient is comfortably sleeping in the bed. 06/14/2018 no acute events in the last 24 hours. Patient is afebrile. Requesting Ensure with meals. As per the patient his pain is getting better. 06/15/2018-no acute events in the last 24 hours. Patient is afebrile. He is getting IV hydration and IV pain medications for sickle cell crisis. He thinks he is receiving folic acid twice a day I reviewed the chart he is presently on folic acid 1 mg daily. 06/16/2018 no acute events in the last 24 hours. Patient is afebrile. Denies any complaints today. I spoke to Dr. Medellin plan is to decrease his IV fluids rate. 2018-no acute events in the last 24 hours. Patient is afebrile. As per Dr. Medellin patient is stable enough to go home tomorrow. Reason For Visit: SICKLE CELL CRISIS Physical Exam Vital Signs: Temp Pulse Resp BP Pulse Ox 98.4 F 83 18 174/102 H 96 06/17/18 08:26 06/17/18 08:26 06/17/18 08:26 06/17/18 08:26 06/17/18 08:26 Intake & Output 06/16/18 06/17/18 06/18/18 06:59 06:59 06:59 Intake Total 3931 1890 Output Total 3225 3225 Balance 706 -1335 Weight 91.5 kg General appearance: PRESENT: no acute distress Head exam: PRESENT: atraumatic Eye exam: PRESENT: PERRLA Neck exam: ABSENT: carotid bruit, JVD, lymphadenopathy, thyromegaly Respiratory exam: PRESENT: clear to auscultation anastasiya. ABSENT: rales, rhonchi, wheezes Cardiovascular exam: PRESENT: RRR. ABSENT: diastolic murmur, rubs, systolic murmur GI/Abdominal exam: PRESENT: normal bowel sounds, soft. ABSENT: distended, guarding, mass, organolmegaly, rebound, tenderness Extremities exam: PRESENT: full ROM. ABSENT: calf tenderness, clubbing, pedal edema Neurological exam: PRESENT: alert, awake, oriented to person, oriented to place, oriented to time, oriented to situation, CN II-XII grossly intact. ABSENT: motor sensory deficit Psychiatric exam: PRESENT: appropriate affect, normal mood. ABSENT: homicidal ideation, suicidal ideation Results Laboratory Results: 06/17/18 04:55 06/17/18 04:55 06/17/18 06/17/18 04:55 04:55 WBC 5.4 RBC 2.64 L Hgb 8.8 L Hct 24.4 L MCV 92 MCH 33.1 MCHC 36.0 RDW 20.5 H Plt Count 324 Seg Neutrophils % Not Reportable Lymphocytes % Not Reportable Monocytes % Not Reportable Eosinophils % Not Reportable Basophils % Not Reportable Absolute Neutrophils Not Reportable Absolute Lymphocytes Not Reportable Absolute Monocytes Not Reportable Absolute Eosinophils Not Reportable Absolute Basophils Not Reportable Sodium 142.0 Potassium 4.3 Chloride 103 Carbon Dioxide 31 H Anion Gap 8 BUN 5 L Creatinine 0.55 Est GFR ( Amer) > 60 Est GFR (Non-Af Amer) > 60 Glucose 102 Calcium 9.1 Magnesium 1.8 Total Bilirubin 1.4 H AST 48 ALT 31 Alkaline Phosphatase 86 Total Protein 7.8 Albumin 4.1 06/11/18 05:05 Creatine Kinase 65 Impressions: Chest X-Ray 06/15/18 00:00 IMPRESSION: Increased interstitial -alveolar opacities in both lung bases, right greater than left. Probable small right pleural effusion. Assessment & Plan - Diagnosis (1) Sickle cell crisis Is this a current diagnosis for this admission?: Yes Plan: Please also see hematology note. The patient will continue with IV fluids. Analgesia increased again. Continue hydroxyurea as ordered. 06/12/2018 patient hemoglobin is 9.0. Patient is on IV fluids at 150 cc/h. Pain management as per Dr. Medellin. 06/13/2018-patient is hemoglobin is stable around 9. On IV fluids 150 cc/h. Continue to give aggressive hydration as per Dr. Medellin's recommendations. He is getting IV pain medications every 2 hourly. 06/14/2018 patient his hemoglobin is stable around 9. He is receiving IV fluids at the rate of 150 cc/h. We will continue IV hydration and pain management as per Dr. Medellin's recommendations. 06/15/2018 patient hemoglobin is 8.6 today stable he is on IV fluids at 150 cc/h he is on hydroxyurea, methadone, IV Dilaudid. We will continue those med ications as per hematology recommendations. 06/16/2018 patient hemoglobin is 8.5. Stable. Plan is to decrease the IV fluids as per GI recommendations. Continue hydroxyurea, methadone and IV Dilaudid. He is also receiving IV Benadryl as needed. 06/17/2018-patient is hemoglobin today is 8.8 is stable. He is on IV hydration and IV pain management. He is also receiving IV Benadryl and as needed basis. Probable discharge home tomorrow. (2) Joint pain Qualifiers: Joint pain location: knee Laterality: bilateral Qualified Code(s): M25.561 - Pain in right knee; M25.562 - Pain in left knee Is this a current diagnosis for this admission?: Yes Plan: Warm compresses seem to help slightly. The patient does have anti- inflammatories ordered. Analgesia as above. 06/12/2018-patient is still complaining of joint pains. he Is receiving warm co mpressions and also on anti-inflammatory medications. Plan is to continue the present management. 06/13/2018-patient is comfortably sleeping. Not in distress. Plan is to continue the present management. 06/14/2017-comfortable in the bed communicating well as per the patient is pending getting much better. Plan is to continue the present management. 06/15/2018-patient states joint pains are much better today. Plan is to continue the present management. 06/16/2018-patient is not complaining of any joint pains today. Presently on IV Dilaudid. Plan is to continue the present management. 2018-patient denies any joint pains today. Patient condition is stable enough to go home tomorrow. (3) Depression Qualifiers: Depression Type: unspecified Qualified Code(s): F32.9 - Major depressive disorder, single episode, unspecified Is this a current diagnosis for this admission?: Yes Plan: During this encounter I asked the patient if he felt overwhelmed. He has 2 daughters. He finds it difficult to explain to them his illness and his multiple stays in the hospital. He did become tearful during the encounter. I did not suggest any antidepressant medication at this time but will discuss further with the patient. 06/12/2018-patient is given the history of depression and difficulty in coping with the chronic illness he has and multiple hospital admissions. I am going to put him on citalopram 20 mg p.o. daily. 06/13/2018-patient is given the history of depression he was started on citalopram 20 mg p.o. daily. No signs and symptoms of depression during the hospital stay. 06/14/2017-plan is to increase the citalopram to 40 mg p.o. daily patient denies any complaints today he thinks medication is working. 06/15/2018-patient is on citalopram 40 mg p.o. daily he denies any symptoms of depression. 06/16/2018-patient denies any complaints of depression. Citalopram 40 mg p.o. daily I think it is working. 06/17/2018 patient is presently on citalopram 40 mg p.o. daily, no complaints of any depression today. (4) Avascular necrosis of hip Qualifiers: Laterality: right Qualified Code(s): M87.051 - Idiopathic aseptic necrosis of right femur Is this a current diagnosis for this admission?: Yes - Time Time Spent with patient: 15-24 minutes Medications reviewed and adjusted accordingly: Yes Anticipated discharge: Home
[2018-06-17] MEDS: PSEUDOEPHEDRINE HCL 30 MG TABLET PO SCH (18:03)
[2018-06-18] MEDS: HYDROMORPHONE HCL INJ/PF 2 MG/ML AMPULE IV PRN ×10 (00:10→22:55)
[2018-06-18] MEDS: DIPHENHYDRAMINE HCL 50 MG/ML VIAL IV PRN ×10 (00:11→22:55)
[2018-06-18] MEDS: IBUPROFEN 800 MG TABLET PO PRN ×2 (02:14→22:58)
[2018-06-18] MEDS: NORMAL SALINE 1000 ML 1,000 ML IV PRN ×2 (05:06→19:42)
--- NOTE | 2018-06-18 09:07 | PDOC PROGRESS REPORT ---
Subjective Progress Note for:: 06/18/18 Subjective:: Patient states that pain is still bad, especially at night. He continues to ask for PRN meds RTC. He states that decreasing dose to 2 mg had been difficult. No other complaints today. ROS: Denies dyspnea. No constipation. Reason For Visit: SICKLE CELL CRISIS Physical Exam Vital Signs: Temp Pulse Resp BP Pulse Ox 98.0 F 71 16 124/72 98 06/18/18 07:19 06/18/18 07:19 06/18/18 07:19 06/18/18 07:19 06/18/18 07:19 Intake & Output 06/17/18 06/18/18 06/19/18 06:59 06:59 06:59 Intake Total 1890 3697 Output Total 3225 1925 Balance -1335 1772 Weight 91.4 kg General appearance: PRESENT: no acute distress Exam: Sitting up on side of bed eating breakfast. Head exam: PRESENT: normocephalic Respiratory exam: PRESENT: unlabored Cardiovascular exam: PRESENT: RRR Extremities exam: ABSENT: pedal edema Neurological exam: PRESENT: alert, awake Psychiatric exam: PRESENT: appropriate affect Skin exam: PRESENT: normal color Results Laboratory Results: 06/17/18 04:55 06/17/18 04:55 06/11/18 05:05 Creatine Kinase 65 Impressions: Chest X-Ray 06/15/18 00:00 IMPRESSION: Increased interstitial -alveolar opacities in both lung bases, right greater than left. Probable small right pleural effusion. Assessment & Plan - Diagnosis (1) Sickle cell crisis Is this a current diagnosis for this admission?: Yes Plan: Continue oxygen and fluids. HGB stable, Bili has improved. No recent LDH. (2) DVT prophylaxis Is this a current diagnosis for this admission?: Yes Plan: Continue Arixtra (3) Dyspnea Is this a current diagnosis for this admission?: Yes - Plan Summary Plan Summary: We discussed decreasing pain medication today. He is still on 2 mg dilaudid q 2 hours. I would prefer to decrease this to 1 mg, but patient is reluctant today. Will continue to try.
[2018-06-18] MEDS: FOLIC ACID 1 MG TABLET PO SCH (09:11)
[2018-06-18] MEDS: METHADONE HCL 10 MG TABLET PO SCH ×2 (09:11→18:06)
[2018-06-18] MEDS: CITALOPRAM HYDROBROMIDE 20 MG TABLET PO SCH (09:11)
[2018-06-18] MEDS: HYDROXYUREA 500 MG CAPSULE PO SCH (09:12)
[2018-06-18] MEDS: FONDAPARINUX SODIUM INJ 2.5 MG/0.5 ML DISP.SYRIN SUBCUT SCH (09:14)
--- NOTE | 2018-06-18 16:32 | PDOC PROGRESS REPORT ---
Subjective Progress Note for:: 06/18/18 Subjective:: This is a 37 years old black male patient with long-standing history of sickle cell anemia presented with back arm and leg pains. Patient is being treated for sickle cell crisis. He reports this is pain is relatively better than yesterday. As soon as patient is cleared by Dr. Medellin or Dr. Morton is potential discharge for tomorrow. Reason For Visit: SICKLE CELL CRISIS Physical Exam Vital Signs: Temp Pulse Resp BP Pulse Ox 97.4 F 63 16 124/85 100 06/18/18 14:50 06/18/18 14:50 06/18/18 14:50 06/18/18 14:50 06/18/18 14:50 Intake & Output 06/17/18 06/18/18 06/19/18 06:59 06:59 06:59 Intake Total 1890 3697 Output Total 3225 1925 Balance -1335 1772 Weight 91.4 kg General appearance: PRESENT: no acute distress, well-developed, well-nourished Head exam: PRESENT: atraumatic, normocephalic Eye exam: PRESENT: conjunctiva pink, EOMI, PERRLA. ABSENT: scleral icterus Ear exam: PRESENT: normal external ear exam Mouth exam: PRESENT: moist, tongue midline Neck exam: ABSENT: carotid bruit, JVD, lymphadenopathy, thyromegaly Respiratory exam: PRESENT: clear to auscultation anastasiya. ABSENT: rales, rhonchi, wheezes Cardiovascular exam: PRESENT: RRR. ABSENT: diastolic murmur, rubs, systolic murmur Pulses: PRESENT: normal dorsalis pedis pul Vascular exam: PRESENT: normal capillary refill GI/Abdominal exam: PRESENT: normal bowel sounds, soft. ABSENT: distended, guarding, mass, organolmegaly, rebound, tenderness Rectal exam: PRESENT: deferred Extremities exam: PRESENT: full ROM. ABSENT: calf tenderness, clubbing, pedal edema Neurological exam: PRESENT: alert, awake, oriented to person, oriented to place, oriented to time, oriented to situation, CN II-XII grossly intact. ABSENT: motor sensory deficit Psychiatric exam: PRESENT: appropriate affect, normal mood. ABSENT: homicidal ideation, suicidal ideation Skin exam: PRESENT: dry, intact, warm. ABSENT: cyanosis, rash Results Laboratory Results: 06/17/18 04:55 06/17/18 04:55 06/11/18 05:05 Creatine Kinase 65 Impressions: Chest X-Ray 06/15/18 00:00 IMPRESSION: Increased interstitial -alveolar opacities in both lung bases, right greater than left. Probable small right pleural effusion. Assessment & Plan - Diagnosis (1) Sickle cell crisis Is this a current diagnosis for this admission?: Yes Plan: We will continue pain control with Dilaudid. (2) Avascular necrosis of hip Is this a current diagnosis for this admission?: Yes Plan: Follow-up with his primary orthopedic surgeon. (3) Depression Is this a current diagnosis for this admission?: Yes Plan: Continue current regimen.
[2018-06-18] MEDS: PSEUDOEPHEDRINE HCL 30 MG TABLET PO SCH (18:03)
[2018-06-19] MEDS: HYDROMORPHONE HCL INJ/PF 2 MG/ML AMPULE IV PRN ×3 (01:13→06:07)
[2018-06-19] MEDS: DIPHENHYDRAMINE HCL 50 MG/ML VIAL IV PRN ×3 (01:13→06:07)
[2018-06-19] MEDS ORDERED: OXYCODONE HCL IR 5 MG TABLET PO PRN (07:40)
--- NOTE | 2018-06-19 07:48 | PDOC PROGRESS REPORT ---
Subjective Progress Note for:: 06/19/18 Subjective:: Patient states he was told that he can go home today. He states that he is still in pain, but it is much better than on admission. He is still requiring Dilaudid 2 mg IV q 2 hours. Reason For Visit: SICKLE CELL CRISIS Physical Exam Vital Signs: Temp Pulse Resp BP Pulse Ox 98.3 F 78 17 135/93 H 95 06/18/18 23:23 06/18/18 23:23 06/18/18 23:23 06/18/18 23:23 06/18/18 23:23 Intake & Output 06/18/18 06/19/18 06/20/18 06:59 06:59 06:59 Intake Total 3697 3122 Output Total 7699 3200 Balance 1772 -78 Weight 91.4 kg 92.5 kg General appearance: PRESENT: well-developed, well-nourished Exam: Lying in bed, appears quite comfortable. Head exam: PRESENT: atraumatic, normocephalic Extremities exam: ABSENT: pedal edema Neurological exam: PRESENT: alert, awake Psychiatric exam: PRESENT: other - Patient asked the same question 3 times and received the same exact answer each time, but continued to ask the same question. Skin exam: PRESENT: normal color Results Laboratory Results: 06/17/18 04:55 06/17/18 04:55 06/11/18 05:05 Creatine Kinase 65 Impressions: Chest X-Ray 06/15/18 00:00 IMPRESSION: Increased interstitial -alveolar opacities in both lung bases, right greater than left. Probable small right pleural effusion. Assessment & Plan - Diagnosis (1) Sickle cell crisis Is this a current diagnosis for this admission?: Yes Plan: Now appears resolved. Patient requests discharge now. However, I have explained that I would prefer to change to his home PO dose of medication and see how he does for a few hours without the IV dilaudid. I am willing to let him go home later this afternoon, as long as he has not had any doses of IV dilaudid for the next 4-6 hours. He did not understand this and did not understand why I would not discharge him immediately. I discussed his care with Dr. Meyer. I will arrange for follow-up appt with Dr. Medellin next week. (2) DVT prophylaxis Is this a current diagnosis for this admission?: Yes (3) Dyspnea Is this a current diagnosis for this admission?: Yes
[2018-06-19] MEDS: CITALOPRAM HYDROBROMIDE 20 MG TABLET PO SCH (09:04)
[2018-06-19] MEDS: FONDAPARINUX SODIUM INJ 2.5 MG/0.5 ML DISP.SYRIN SUBCUT SCH (09:04)
[2018-06-19] MEDS: FOLIC ACID 1 MG TABLET PO SCH (09:04)
[2018-06-19] MEDS: HYDROXYUREA 500 MG CAPSULE PO SCH (09:05)
[2018-06-19] MEDS: METHADONE HCL 10 MG TABLET PO SCH (09:09)
--- NOTE | 2018-06-19 09:44 | PDOC DISCHARGE SUMMARY ---
General - Admit/Disc Date/PCP Admission Date/Primary Care Provider: 06/11/18 12:05 Discharge Date: 06/19/18 - Discharge Diagnosis (1) Sickle cell crisis Is this a current diagnosis for this admission?: Yes (2) Avascular necrosis of hip Is this a current diagnosis for this admission?: Yes (3) Depression Is this a current diagnosis for this admission?: Yes - Additional Information Resuscitation Status: Full Code Home Medications: Methadone HCl [Dolophine HCl] 5 mg PO BID 10/11/16 Oxycodone HCl [Oxycodone HCl 10 MG Tablet] 10 mg PO Q8HP PRN 04/05/17 Hydroxyurea 1,500 mg PO MOWEFR@1000 03/22/18 Docusate Sodium [Colace 100 mg Capsule] 100 mg PO BIDP PRN 04/22/18 Folic Acid [Folvite 1 mg Tablet] 1 mg PO DAILY 04/22/18 Ibuprofen [Motrin 600 mg Tablet] 600 mg PO Q6HP PRN 04/30/18 Baclofen [Baclofen 10 mg Tablet] 10 mg PO HSP PRN 06/10/18 Hydroxyurea [Hydrea 500 mg Capsule] 500 mg PO SUTHFRSA@1000 06/10/18 Pseudoephedrine HCl [Sudafed] 60 mg PO QPM 06/10/18 Sennosides [Senokot] 34.4 mg PO HSP PRN 06/10/18 Terbutaline Sulfate [Brethine] 5 mg PO Q6HP PRN 06/10/18 History of Present Illness History of Present Illness: MARISA GARBER is a 37 year old male with a history of sickle cell anemia. In April he was admitted to the hospital for the same. He does follow with Dr. Durant and Dr. Garcia. He was in the emergency department yesterday and treated with fluids and analgesics. He discharged home but still had significant pain. He presented back to the emergency department and was referred to the hospitalist service for admission. Hospital Course Hospital Course: This is a 37 years old black male patient with long-standing history of sickle cell anemia presented with back arm and leg pains. Patient is being treated for sickle cell crisis. He reports this is pain is relatively better than yesterday. Patient patient resting in bed comfortably. He reports that he is relatively pain-free. Patient this morning seen and evaluated by Dr. Mckay and clinically she cleared him for discharge. Patient has upcoming appointment next week with Dr. Beckman. Physical Exam Vital Signs: Temp Pulse Resp BP Pulse Ox 98.3 F 78 17 135/93 H 91 L 06/18/18 23:23 06/18/18 23:23 06/18/18 23:23 06/18/18 23:23 06/19/18 09:16 Intake & Output 06/18/18 06/19/18 06/20/18 06:59 06:59 06:59 Intake Total 3697 3122 Output Total 1925 3200 Balance 1772 -78 Weight 91.4 kg 92.5 kg General appearance: PRESENT: no acute distress, well-developed, well-nourished Head exam: PRESENT: atraumatic, normocephalic Eye exam: PRESENT: conjunctiva pink, EOMI, PERRLA. ABSENT: scleral icterus Ear exam: PRESENT: normal external ear exam Mouth exam: PRESENT: moist, tongue midline Neck exam: ABSENT: carotid bruit, JVD, lymphadenopathy, thyromegaly Respiratory exam: PRESENT: clear to auscultation anastasiya. ABSENT: rales, rhonchi, wheezes Cardiovascular exam: PRESENT: RRR. ABSENT: diastolic murmur, rubs, systolic murmur Pulses: PRESENT: normal dorsalis pedis pul Vascular exam: PRESENT: normal capillary refill GI/Abdominal exam: PRESENT: normal bowel sounds, soft. ABSENT: distended, guar ding, mass, organolmegaly, rebound, tenderness Rectal exam: PRESENT: deferred Extremities exam: PRESENT: full ROM. ABSENT: calf tenderness, clubbing, pedal edema Neurological exam: PRESENT: alert, awake, oriented to person, oriented to place, oriented to time, oriented to situation, CN II-XII grossly intact. ABSENT: motor sensory deficit Psychiatric exam: PRESENT: appropriate affect, normal mood. ABSENT: homicidal ideation, suicidal ideation Skin exam: PRESENT: dry, intact, warm. ABSENT: cyanosis, rash Results Laboratory Results: 06/17/18 04:55 06/17/18 04:55 06/11/18 05:05 Creatine Kinase 65 Impressions: Chest X-Ray 06/15/18 00:00 IMPRESSION: Increased interstitial -alveolar opacities in both lung bases, right greater than left. Probable small right pleural effusion. Qualifiers - * PATIENT BEING DISCHARGED WITH ANY OF THE FOLLOWING DIAGNOSIS: No
[2018-06-19 10:03] VITALS: BP 129/78
== END 2018-06-19 11:01 | disposition home or self-care (01) | DRG 812 ==
LOC: ER 02:53 → EH 08:12 → 4N 14:08 → OBSVTOIN 06-11 12:05
PROVIDERS: ADMIT Internal Medicine; ATTEND Internal Medicine
DX: D57.00 Hb-SS disease with crisis, unspecified (principal); M87.051 Idiopathic aseptic necrosis of right femur; F32.9 Major depressive disorder, single episode, unspecified; F11.988 Opioid use, unspecified with other opioid-induced disorder; M79.10 Myalgia, unspecified site; M25.561 Pain in right knee; M25.562 Pain in left knee; Z79.899 Other long term (current) drug therapy; Z87.891 Personal history of nicotine dependence; Z88.6 Allergy status to analgesic agent; Z88.1 Allergy status to other antibiotic agents; Z88.3 Allergy status to other anti-infective agents; Z91.040 Latex allergy status; Z88.8 Allergy status to other drugs, medicaments and biological substances; Z91.018 Allergy to other foods
CPT/HCPCS: 36415; 36591; 71045; 80048; 80053; 80076; 82550; 83735; 85025; 85045; 93005; 93010; 94799; 96361; 96374; 96375; 96376; 99284; 99285; G0378; J1170; J1200; J1642; J7030

== ENCOUNTER 2018-06-25 02:15 | Emergency (ER) | payer MEDICARE, MEDICAID ==
[2018-06-25] MEDS ORDERED: DIPHENHYDRAMINE HCL 50 MG/ML VIAL IV ONE ×3 (05:24→09:52)
[2018-06-25] MEDS ORDERED: HYDROMORPHONE HCL INJ/PF 2 MG/ML AMPULE IV ONE ×3 (05:25→09:40)
[2018-06-25 06:14] LABS: ALANINE AMINOTRANSFERASE 30 U/L (21-72); ALBUMIN 4.2 g/dL (3.5-5.0); ALKALINE PHOSPHATASE 62 U/L (38-126); ANION GAP 8 (5-19); ASPARTATE AMINO TRANSFERASE 33 U/L (17-59); BILIRUBIN,DIRECT 0.4 mg/dL (0.0-0.4); BILIRUBIN,TOTAL 2.1 mg/dL (0.2-1.3); BLOOD UREA NITROGEN 8 mg/dL (7-20); CALCIUM 9.3 mg/dL (8.4-10.2); CARBON DIOXIDE 29 mmol/L (22-30); CHLORIDE 106 mmol/L (98-107); GLUCOSE 87 mg/dL (75-110); POTASSIUM 3.7 mmol/L (3.6-5.0); SODIUM 142.8 mmol/L (137-145); TOTAL PROTEIN 7.8 g/dL (6.3-8.2)
--- NOTE | 2018-06-25 06:46 | ER Document Report ---
ED General Pain - General Chief Complaint: Sickle Cell Crisis Stated Complaint: SICKLE CELL KNEE PAIN Time Seen by Provider: 06/25/18 06:13 Notes: 37-year-old male history of sickle cell disease presents to the ER complaining of bilateral hip and knee pain. He denies chest pain he denies shortness of breath. Patient has fever chills cough or sore throat. Describes his pain is 10 out of 10 aching in his knees and hips. Denies any falls or trauma. Denies abdominal pain. Denies nausea vomiting diarrhea. TRAVEL OUTSIDE OF THE [place] IN LAST 30 DAYS: No - Related Data Allergies/Adverse Reactions: famotidine [From Pepcid] Allergy (Severe, Verified 06/10/18 10:01) Anaphylaxis ketorolac tromethamine [From Toradol] Allergy (Severe, Verified 06/10/18 10:01) levofloxacin [From Levaquin] Allergy (Severe, Verified 06/10/18 10:01) meperidine HCl [From Demerol] Allergy (Severe, Verified 06/10/18 10:01) morphine [Morphine] Allergy (Severe, Verified 06/10/18 10:01) tramadol HCl [From Ultram] Allergy (Severe, Verified 06/10/18 10:01) amoxicillin [Amoxicillin] Allergy (Verified 06/10/18 10:01) fentanyl [Fentanyl] Allergy (Verified 06/10/18 10:01) latex [Latex] Allergy (Verified 06/10/18 10:01) ondansetron HCl [From Zofran] Allergy (Verified 06/10/18 10:01) Pork/Porcine Containing Products Allergy (Verified 06/10/18 10:01) Past Medical History - Social History Smoking Status: Never Smoker Family History: Other - Sickle cell disease Patient has suicidal ideation: No Patient has homicidal ideation: No - Past Medical History Cardiac Medical History: Denies: Hx Atrial Fibrillation, Hx Congestive Heart Failure, Hx Coronary Artery Disease Pulmonary Medical History: Denies: Hx Bronchitis, Hx Tuberculosis Neurological Medical History: Reports: Hx Seizures. Denies: Hx Migraine Endocrine Medical History: Denies: Hx Diabetes Mellitus Type 1, Hx Diabetes Mellitus Type 2 Renal/ Medical History: Denies: Hx Peritoneal Dialysis GI Medical History: Denies: Hx Cirrhosis, Hx Hepatitis Musculoskeletal Medical History: Denies Hx Arthritis, Denies Hx Gout, Reports Hx Musculoskeletal Deformity - right hip avascular necrosis Skin Medical History: Denies Hx Eczema, Denies Hx Psoriasis Psychiatric Medical History: Denies: Hx Depression Infectious Medical History: Denies: Hx Hepatitis Past Surgical History: Reports: Hx Appendectomy, Hx Vascular Surgery - L port placement, Other - Port placement - Immunizations Immunizations up to date: Yes Hx Diphtheria, Pertussis, Tetanus Vaccination: Yes Hx Pneumococcal Vaccination: 02/20/11 Review of Systems - Review of Systems Constitutional: denies: Chills, Fever Cardiovascular: denies: Chest pain, Dyspnea, Edema Respiratory: denies: Hemoptysis, Short of breath Gastrointestinal: denies: Nausea, Vomiting Musculoskeletal: Joint pain -: Yes All other systems reviewed and negative Physical Exam - Vital signs Vitals: Temp Pulse Resp BP Pulse Ox 98.9 F 76 16 134/76 H 95 06/25/18 02:26 06/25/18 02:26 06/25/18 02:26 06/25/18 02:06/25/18 02:26 - Notes Notes: GENERAL_APPEARANCE: well_nourished, alert, cooperative, no_acute_distress, no_obvious_discomfort. VITALS: reviewed, see vital signs table. HEAD: no_swelling\tenderness on the head. EYES: PERRL, EOMI, conjunctiva_clear. NOSE: no_nasal_discharge. MOUTH: (-)decreased moisture. THROAT: no_tonsilar_inflammation, no_airway_obstruction. no_lymphadenopathy NECK: supple, no_neck_tenderness, (-)thyromegaly. BACK: no_back_tenderness. CHEST_WALL: no_chest_tenderness. LUNGS: no_wheezing, no_rales, no_rhonchi, (-)accessory muscle use, good air exchange bilateral. HEART: normal_rate, normal_rhythm, normal_S1, normal_S2, (-)S3, (-)S4, no_murmur, no_rub. ABDOMEN: normal_BS, soft, no_abd_tenderness, (-)guarding, (-)rebound, no_organomegaly, no_abd_masses. EXTREMITIES: No edema no swelling bilateral knee pain and hip pain no swelling noted SKIN: warm, dry, good_color, no_rash. MENTAL_STATUS: speech_clear, oriented_X_3, normal_affect, responds_appropriately to questions. Course - Re-evaluation Re-evalutation: 06/25/18 06:44 29-year-old male who is a frequent visitor to the emergency department for sickle cell pain. Patient was recently admitted for the same. Patient is under the care of hematology. He states his pain meds do not work for him at home. We will check his hemoglobin and Equi-Cyte. Again patient is a very frequent visitor here to the ER. His pain is poorly controlled at home -I am not sure with the problem is with working with the hematology people. The patient needs to have a breakthrough pain plan. The patient is extraordinarily narcotic tolerant. We are giving him fluids oxygen and pain medicine here. 06/25/18 09:41 Patient's hemoglobin is 8.9. He psych count and is not showing any signs of an aplastic crisis. The patient is barding for an additional dose of medication I will give him an additional pain medicine and then discharge him home. Again the patient is chronically here in the emergency department. Hematology needs to work on a breakthrough pain medicine plan for him that does not include going straight to the emergency department when he develops breakthrough pain. I spoke with him at length and wanted him to engage his model maker plastic about this. - Vital Signs Vital signs: Temp Pulse Resp BP Pulse Ox 98.8 F 76 13 124/84 100 06/25/18 06:49 06/25/18 02:26 06/25/18 08:14 06/25/18 08:14 06/25/18 08:14 - Laboratory Result Diagrams: 06/25/18 05:30 06/25/18 05:30 Laboratory results interpreted by me: 06/25/18 06/25/18 05:30 05:30 RBC 2.62 L Hgb 8.9 L Hct 25.8 L MCV 98 H D MCH 34.1 H RDW 22.0 H Plt Count 465 H Monocytes % (Manual) 14 H Retic Count (auto) 12.93 H Absolute Retic 0.339 H Total Bilirubin 2.1 H - Diagnostic Test Radiology reviewed: Reports reviewed Radiology results interpreted by me: 06/25/18 09:41 Chest X-Ray 06/25/18 05:24 IMPRESSION: Chronic increased interstitial markings at lung bases with left basilar scarring. No acute findings. Discharge - Discharge Clinical Impression: Sickle cell crisis Condition: Good Disposition: HOME, SELF-CARE Instructions: Sickle Cell Crisis ([facility]) Additional Instructions: Call your model maker plastic you need to have a breakthrough pain plan.
[2018-06-25 06:59] LABS: ABSOLUTE RETICS # 0.339 10^6/uL (0.028-0.122); HEMATOCRIT 25.8 % (37.9-51.0); HEMOGLOBIN 8.9 g/dL (13.5-17.0); MEAN CORPUSCULAR HEMOGLOBIN 34.1 pg (27.0-33.4); MEAN CORPUSCULAR HGB CONC 34.6 g/dL (32.0-36.0); PLATELET COUNT 465 10^3/uL (150-450); RED BLOOD COUNT 2.62 10^6/uL (4.35-5.55); RETICULOCYTE COUNT (AUTO) 12.93 % (0.66-2.85); WHITE BLOOD COUNT 7.8 10^3/uL (4.0-10.5)
[2018-06-25 07:03] LABS: MEAN CORPUSCULAR VOLUME 98 fl (80-97)
[2018-06-25 07:05] LABS: ABSOLUTE LYMPHOCYTES# (MANUAL) 2.7 10^3/uL (0.5-4.7); ABSOLUTE MONOCYTES # (MANUAL) 1.1 10^3/uL (0.1-1.4); ABSOLUTE NEUTROPHILS# (MANUAL) 3.7 10^3/uL (1.7-8.2); BASOPHILS % (MANUAL) 0 % (0-2); EOSINOPHILS % (MANUAL) 3 % (0-6); LYMPHOCYTES % (MANUAL) 35 % (13-45); MONOCYTES % (MANUAL) 14 % (3-13); NUCLEATED RED BLOOD CELLS 5 /100 WBC (0); SEGMENTED NEUTROPHILS % (MAN) 48 % (42-78); TOTAL CELLS COUNTED 100
[2018-06-25 07:06] LABS: POLYCHROMASIA 1+
[2018-06-25 07:07] LABS: ANISOCYTOSIS 3+; PLATELET COMMENT INCREASED; POIKILOCYTOSIS 2+; SICKLE RED CELLS 2+; TARGET CELLS 2+
[2018-06-25] MEDS ORDERED: NORMAL SALINE 1000 ML 1,000 ML IV ONE (07:50)
--- NOTE | 2018-06-25 08:54 | RADIOLOGY REPORT (SQ) ---
EXAM DESCRIPTION: CHEST 2 VIEWS COMPLETED DATE/TIME: 06/25/2018 8:43 am REASON FOR STUDY: sickel, pain COMPARISON: Chest films 06/15/2018, 05/27/2018, 04/22/2018 04/18/2018 EXAM PARAMETERS: NUMBER OF VIEWS: two views TECHNIQUE: Digital Frontal and Lateral radiographic views of the chest acquired. RADIATION DOSE: NA LIMITATIONS: none FINDINGS: LUNGS AND PLEURA: Chronic increased interstitial markings are present at both lung bases. Stable bandlike scarring at the left lung base. No new infiltrates. No pleural effusion. No pneumothorax. MEDIASTINUM AND HILAR STRUCTURES: No masses or contour abnormalities. HEART AND VASCULAR STRUCTURES: Mild cardiomegaly BONES: No acute findings. HARDWARE: Left-sided permanent central line tip superior vena cava OTHER: No other significant finding. IMPRESSION: Chronic increased interstitial markings at lung bases with left basilar scarring. No ac rebeca findings. TECHNICAL DOCUMENTATION: JOB ID: [id number] [employer]- All Rights Reserved Reading location - IP/workstation name: [email or web address]
[2018-06-25 10:31] VITALS: BP 156/96
== END 2018-06-25 10:32 | disposition home or self-care (01) ==
LOC: ER 02:15
DX: D57.00 Hb-SS disease with crisis, unspecified (principal); M25.561 Pain in right knee; M25.562 Pain in left knee; M25.551 Pain in right hip; M25.552 Pain in left hip; Z88.8 Allergy status to other drugs, medicaments and biological substances; Z88.1 Allergy status to other antibiotic agents; Z88.5 Allergy status to narcotic agent; Z88.0 Allergy status to penicillin; Z91.040 Latex allergy status; Z91.018 Allergy to other foods
CPT/HCPCS: 36591; 96376; 99284; 96374; 96375; 36415; 85025; 85045; 80053; 71046; J1200; J1170; J7030

== ENCOUNTER 2018-06-26 13:06 | Outpatient (CLI) | payer MEDICARE, MEDICAID ==
[2018-06-26] MEDS ORDERED: NORMAL SALINE 1000 ML 1,000 ML IV PRN (13:17)
[2018-06-26] MEDS ORDERED: HYDROMORPHONE HCL INJ/PF 2 MG/ML AMPULE IV PRN (13:18)
[2018-06-26] MEDS ORDERED: DIPHENHYDRAMINE HCL 50 MG/ML VIAL ONE (13:41)
[2018-06-26 14:18] VITALS: BP 138/85
== END 2018-06-26 16:11 | disposition home or self-care (01) ==
LOC: II 13:06 → 5TH 15:47 → II 16:11
PROVIDERS: ATTEND Internal Medicine
PROC: 3E043GC Introduction of Other Therapeutic Substance into Central Vein, Percutaneous Approach (ICD-10-PCS; principal; 2018-06-26)
PROC: 3E0437Z Introduction of Electrolytic and Water Balance Substance into Central Vein, Percutaneous Approach (ICD-10-PCS; 2018-06-26)
DX: D57.1 Sickle-cell disease without crisis (principal); E86.0 Dehydration; R52 Pain, unspecified
CPT/HCPCS: 96374; 96375; 96360; 96361; J1200; J1170

== ENCOUNTER 2018-06-27 13:12 | Outpatient (CLI) | payer MEDICARE, MEDICAID ==
[2018-06-27] MEDS ORDERED: HYDROMORPHONE HCL INJ/PF 2 MG/ML AMPULE IV PRN (13:22)
[2018-06-27] MEDS ORDERED: NORMAL SALINE 1000 ML 1,000 ML IV ONE (14:00)
[2018-06-27] MEDS ORDERED: DIPHENHYDRAMINE HCL 50 MG/ML VIAL IV ONE (14:15)
== END 2018-06-27 14:48 | disposition home or self-care (01) ==
LOC: II 13:12 → 5TH 13:17 → II 14:48
PROVIDERS: ATTEND Internal Medicine
PROC: 3E043GC Introduction of Other Therapeutic Substance into Central Vein, Percutaneous Approach (ICD-10-PCS; principal; 2018-06-27)
PROC: 3E0437Z Introduction of Electrolytic and Water Balance Substance into Central Vein, Percutaneous Approach (ICD-10-PCS; 2018-06-27)
DX: D57.1 Sickle-cell disease without crisis (principal); E86.0 Dehydration; R52 Pain, unspecified
CPT/HCPCS: 96374; 96375; 96360; 96361; J1200; J1170

== ENCOUNTER 2018-06-30 12:56 | Outpatient (CLI) | payer MEDICARE, MEDICAID ==
[2018-06-30 13:15] VITALS: BP 134/96
[2018-06-30] MEDS ORDERED: DIPHENHYDRAMINE HCL 50 MG/ML VIAL ONE (13:29)
[2018-06-30] MEDS ORDERED: DIPHENHYDRAMINE HCL 50 MG/ML VIAL IV SCH (13:30)
[2018-06-30] MEDS ORDERED: HYDROMORPHONE HCL INJ/PF 2 MG/ML AMPULE ONE (13:30)
[2018-06-30] MEDS ORDERED: NORMAL SALINE 1000 ML 1,000 ML IV PRN (13:36)
[2018-06-30] MEDS ORDERED: HYDROMORPHONE HCL INJ/PF 2 MG/ML AMPULE IV PRN (13:37)
== END 2018-06-30 14:53 | disposition home or self-care (01) ==
LOC: II 12:56 → 2S 13:07 → II 14:53
PROVIDERS: ATTEND Internal Medicine
PROC: 3E0337Z Introduction of Electrolytic and Water Balance Substance into Peripheral Vein, Percutaneous Approach (ICD-10-PCS; principal; 2018-06-30)
PROC: 3E033GC Introduction of Other Therapeutic Substance into Peripheral Vein, Percutaneous Approach (ICD-10-PCS; 2018-06-30)
DX: D57.1 Sickle-cell disease without crisis (principal); R52 Pain, unspecified; E86.0 Dehydration
CPT/HCPCS: 96374; 96375; 96361; J1200; J1170; J7030

== ENCOUNTER 2018-07-02 12:55 | Outpatient (CLI) | payer MEDICARE, MEDICAID ==
[~2018-07-02 12:55] MED LIST: DIPHENHYDRAMINE HCL 50 MG/ML VIAL IV PRN; HYDROMORPHONE HCL INJ/PF 2 MG/ML AMPULE IV PRN; NORMAL SALINE 1000 ML 1,000 ML IV PRN
[2018-07-02 13:29] VITALS: BP 133/80
== END 2018-07-02 14:57 | disposition home or self-care (01) ==
LOC: II 12:55 → 5TH 12:57 → II 14:57
PROVIDERS: ATTEND Internal Medicine
PROC: 3E0437Z Introduction of Electrolytic and Water Balance Substance into Central Vein, Percutaneous Approach (ICD-10-PCS; principal; 2018-07-02)
PROC: 3E043GC Introduction of Other Therapeutic Substance into Central Vein, Percutaneous Approach (ICD-10-PCS; 2018-07-02)
DX: D57.1 Sickle-cell disease without crisis (principal); E86.0 Dehydration; R52 Pain, unspecified
CPT/HCPCS: 96374; 96375; 96360; J1200; J1170; 96361

== ENCOUNTER 2018-07-04 12:28 | Outpatient (CLI) | payer MEDICARE, MEDICAID | END 2018-07-04 14:53 | disposition home or self-care (01) | LOC: II 12:28 → 5TH 12:29 → II 14:53 | PROVIDERS: ATTEND Internal Medicine | DX: D57.1 Sickle-cell disease without crisis (principal); E86.0 Dehydration; R52 Pain, unspecified | CPT/HCPCS: J1200; J1170 ==

== ENCOUNTER 2018-07-06 19:58 | Emergency (ER) | payer MEDICARE, MEDICAID ==
[2018-07-06] MEDS ORDERED: HYDROMORPHONE HCL INJ/PF 2 MG/ML AMPULE IV ONE ×2 (22:03→22:58)
[2018-07-06] MEDS ORDERED: DIPHENHYDRAMINE HCL 50 MG/ML VIAL IV ONE (22:03)
[2018-07-06] MEDS ORDERED: NORMAL SALINE 1000 ML 1,000 ML IV ONE (22:03)
[2018-07-06 22:14] LABS: ABSOLUTE RETICS # 0.193 10^6/uL (0.028-0.122); HEMATOCRIT 27.8 % (37.9-51.0); HEMOGLOBIN 9.7 g/dL (13.5-17.0); MEAN CORPUSCULAR HEMOGLOBIN 33.4 pg (27.0-33.4); MEAN CORPUSCULAR HGB CONC 34.8 g/dL (32.0-36.0); MEAN CORPUSCULAR VOLUME 96 fl (80-97); PLATELET COUNT 323 10^3/uL (150-450); RED BLOOD COUNT 2.89 10^6/uL (4.35-5.55); RED CELL DISTRIBUTION WIDTH 22.3 % (11.5-14.0); RETICULOCYTE COUNT (AUTO) 6.66 % (0.66-2.85); WHITE BLOOD COUNT 7.3 10^3/uL (4.0-10.5)
[2018-07-06 22:30] LABS: ABSOLUTE LYMPHOCYTES# (MANUAL) 1.8 10^3/uL (0.5-4.7); ABSOLUTE MONOCYTES # (MANUAL) 0.7 10^3/uL (0.1-1.4); ABSOLUTE NEUTROPHILS# (MANUAL) 4.7 10^3/uL (1.7-8.2); BASOPHILS % (MANUAL) 0 % (0-2); EOSINOPHILS % (MANUAL) 0 % (0-6); LYMPHOCYTES % (MANUAL) 25 % (13-45); MONOCYTES % (MANUAL) 10 % (3-13); NUCLEATED RED BLOOD CELLS 4 /100 WBC (0); SEGMENTED NEUTROPHILS % (MAN) 65 % (42-78); TOTAL CELLS COUNTED 100
[2018-07-06 22:35] LABS: PLATELET COMMENT ADEQUATE
[2018-07-06 22:36] LABS: ANISOCYTOSIS 3+; POIKILOCYTOSIS 1+; POLYCHROMASIA 1+; SCHISTOCYTES 1+; SICKLE RED CELLS 3+; TARGET CELLS 2+
[2018-07-06 22:37] LABS: ALANINE AMINOTRANSFERASE 81 U/L (21-72); ALKALINE PHOSPHATASE 63 U/L (38-126); ANION GAP 8 (5-19); ASPARTATE AMINO TRANSFERASE 350 U/L (17-59); BILIRUBIN,DIRECT 0.3 mg/dL (0.0-0.4); BLOOD UREA NITROGEN 10 mg/dL (7-20); CALCIUM 8.9 mg/dL (8.4-10.2); CARBON DIOXIDE 30 mmol/L (22-30); CHLORIDE 102 mmol/L (98-107); GLUCOSE 97 mg/dL (75-110); SODIUM 139.5 mmol/L (137-145); TOTAL PROTEIN 7.8 g/dL (6.3-8.2)
[2018-07-06 22:43] LABS: POTASSIUM 3.2 mmol/L (3.6-5.0)
[2018-07-06] MEDS ORDERED: MAGNESIUM OXIDE 400 MG TABLET PO ONE (22:54)
[2018-07-06] MEDS ORDERED: POTASSIUM CHLORIDE 10 MEQ CAPSULE.ER PO ONE (22:54)
[2018-07-07] MEDS ORDERED: DIPHENHYDRAMINE HCL 50 MG/ML VIAL IV ONE (01:13)
[2018-07-07] MEDS ORDERED: HYDROMORPHONE HCL INJ/PF 2 MG/ML AMPULE IV ONE ×2 (01:13→02:35)
--- NOTE | 2018-07-07 01:17 | RADIOLOGY REPORT (SQ) ---
EXAM DESCRIPTION: US ABDOMEN DOPPLER LIMITED COMPLETED DATE/TME: 07/06/2018 23:30 CLINICAL HISTORY: 37 years, Male, elevated liver enzymes COMPARISON: 08/16/2015. TECHNIQUE: Berumen scale sonography of the right upper quadrant abdomen. LIMITATIONS: None. FINDINGS: LIVER: Within normal limits of morphology and echogenicity measuring 17.7 cm. GALLBLADDER: Contracted appearance of the gallbladder limiting evaluation of the gallbladder wall. The gallbladder wall measures approximately 2 mm. Centimeter-sized focus of echogenicity with posterior acoustic shadowing at the level of the distal dependent gallbladder compatible with cholelithiasis. No pericholecystic fluid. Negative sonographic Ortiz's sign. BILIARY TRACT: No significant abnormalities noted. The common bile duct measures 8 mm mm. PANCREAS: Limited evaluation secondary to partial obscuration by overlying bowel gas otherwise within normal limits. OTHER: No significant abnormalities noted. RIGHT kidney: Within normal limits of morphology and echogenicity measuring 14.1 x 4.5 x 6.2 cm. IMPRESSION: 1. No clear findings to suggest intrahepatic biliary dilation, however the measured common bile duct is greater than expected for the patient's age measuring 8 mm. Follow-up evaluation with MRCP may be considered. 2. Contracted appearance of the gallbladder limiting evaluation. 3. Cholelithiasis. copyright 2010 [employer]- All Rights Reserved
--- NOTE | 2018-07-07 02:37 | ER Document Report ---
ED General - General Chief Complaint: Sickle Cell Crisis Stated Complaint: BODY PAIN Time Seen by Provider: 07/06/18 21:55 Primary Care Provider: BETH STAPLETON MD [Primary Care Provider] - Follow up tomorrow Notes: Patient is a 37-year-old male presents with complaint of pain from sickle cell. He says his pain is mainly in his extremities. Some into his back. Says feels like his typical sickle cell crisis. He said he noticed it earlier today when he is at work. 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 He says today was a longer day than usual. He says that he continue to have worsening pain but he cannot leave until he was done with all his clients. By and he was hurting quite a bit and therefore came to the ER. He denies abdominal pain. No chest pain. No shortness of breath. No fevers. He says he had some runny nose and congestion. Is followed by Dr. Stapleton. He has had a appendectomy. He still has his gallbladder and spleen. TRAVEL OUTSIDE OF THE [place] IN LAST 30 DAYS: No - Related Data Allergies/Adverse Reactions: famotidine [From Pepcid] Allergy (Severe, Verified 06/10/18 10:01) Anaphylaxis ketorolac tromethamine [From Toradol] Allergy (Severe, Verified 06/10/18 10:01) levofloxacin [From Levaquin] Allergy (Severe, Verified 06/10/18 10:01) meperidine HCl [From Demerol] Allergy (Severe, Verified 06/10/18 10:01) morphine [Morphine] Allergy (Severe, Verified 06/10/18 10:01) tramadol HCl [From Ultram] Allergy (Severe, Verified 06/10/18 10:01) amoxicillin [Amoxicillin] Allergy (Verified 06/10/18 10:01) fentanyl [Fentanyl] Allergy (Verified 06/10/18 10:01) latex [Latex] Allergy (Verified 06/10/18 10:01) ondansetron HCl [From Zofran] Allergy (Verified 06/10/18 10:01) Pork/Porcine Containing Products Allergy (Verified 06/10/18 10:01) Past Medical History - Social History Smoking Status: Unknown if Ever Smoked Frequency of alcohol use: None Drug Abuse: None Family History: Other - Sickle cell disease Patient has suicidal ideation: No Patient has homicidal ideation: No - Past Medical History Cardiac Medical History: Denies: Hx Atrial Fibrillation, Hx Congestive Heart Failure, Hx Coronary Artery Disease Pulmonary Medical History: Denies: Hx Bronchitis, Hx Tuberculosis Neurological Medical History: Reports: Hx Seizures. Denies: Hx Migraine Endocrine Medical History: Denies: Hx Diabetes Mellitus Type 1, Hx Diabetes Mellitus Type 2 Renal/ Medical History: Denies: Hx Peritoneal Dialysis GI Medical History: Denies: Hx Cirrhosis, Hx Hepatitis Musculoskeletal Medical History: Denies Hx Arthritis, Denies Hx Gout, Reports Hx Musculoskeletal Deformity - right hip avascular necrosis Skin Medical History: Denies Hx Eczema, Denies Hx Psoriasis Psychiatric Medical History: Denies: Hx Depression Infectious Medical History: Denies: Hx Hepatitis Past Surgical History: Reports: Hx Appendectomy, Hx Vascular Surgery - L port placement, Other - Port placement - Immunizations Immunizations up to date: Yes Hx Diphtheria, Pertussis, Tetanus Vaccination: Yes Hx Pneumococcal Vaccination: 02/20/11 Review of Systems - Review of Systems Notes: My Normal Review Basic REVIEW OF SYSTEMS: CONSTITUTIONAL : Denies fever, chills, or sweats. Denies recent illness. EENT: Some nasal congestion. CARDIOVASCULAR: Denies chest pain. RESPIRATORY: Denies cough, cold, or chest congestion. Denies shortness of breath, difficulty breathing, or wheezing. GASTROINTESTINAL: Denies abdominal pain. Denies nausea, vomiting, or diarrhea. Denies constipation. Last BM: MUSCULOSKELETAL: Pain throughout his extremities. Pain is mostly in the joints. SKIN: Denies rash or skin lesions. HEMATOLOGIC : Sickle cell NEUROLOGICAL: Denies altered mental status or loss of consciousness. Denies headache. Denies weakness or paralysis or loss of use of either side. Denies problems with gait or speech. Denies sensory or motor loss. ALL OTHER SYSTEMS REVIEWED AND NEGATIVE. Physical Exam - Vital signs Vitals: Temp Pulse Resp BP Pulse Ox 98.5 F 76 18 134/81 H 97 07/06/18 20:07 07/06/18 20:07 07/06/18 20:07 07/06/18 20:07 07/06/18 20:07 - Notes Notes: General Appearance: Well nourished, alert, cooperative, no acute distress, moderate obvious discomfort. Vitals: reviewed, See vital signs table. Head: no swelling or tenderness to the head Eyes: PERRL, EOMI, Conjuctiva clear Mouth: No decreasd moisture Throat: No tonsillar inflammation, No airway obstruction, No lymphadenopathy Lungs: No wheezing, No rales, No rhonci, No accessory muscle use, good air exchange bilaterally. Heart: Normal rate, Regular rythm, No murmur, no rub Abdomen: Normal BS, soft, No rigidity, No abdominal tenderness, No guarding, no rebound, no abdominal masses, no organomegaly Extremities: strength 5/5 in all extremities, good pulses in all extremities, some soreness throughout his extremities. There is no obvious joint swelling or redness or signs of infection in the joints.. Skin: warm, dry, appropriate color, no rash Neuro: speech clear, oriented x 3, normal affect, responds appropriately to questions. Course - Re-evaluation Re-evalutation: 07/07/18 02:36 Reevaluation he says his pain is fine improving. He says he does have some pain in his knees. I did order the ultrasound which patient is somewhat slightly elevated liver enzymes. This is common bile duct is just slightly enlarged however the patient continues to deny any abdominal pain whatsoever. Also r eviewed his previous abdominal ultrasound which shows previously his common bile duct was 9 mm of its actually was dilated and was in the past. This suggests that this is a chronic finding. I informed him that we will give him 1 more dose of pain medicine. If he continues to have pain despite this medicine then we will really need to consider admission. Patient is agreeable to plan. 07/07/18 02:38 07/07/18 02:38 07/07/18 04:49 Patient says he feels much improved after the final dose pain medicine. He says he does not want to be admitted he prefers to go home. I did offer him admission for further pain control due to his sickle cell pain crisis. He does have a slight elevation of his liver enzymes which is new. I did do an ultrasound of his right upper quadrant. It did show some gallstones but otherwise was normal except for slightly dilated common bile duct. I compared this to his previous ultrasound of his common bile duct is actually at limits less dilated than it has been in the past. It appears that his mild duct dilation is chronic. I do not suspect cholecystitis as the patient has absolutely no pain in his abdomen and he does not have a leukocytosis and does not have a fever and his ultrasound does not show evidence of cholecystitis. I informed the patient that he must follow-up with Dr. Stapleton next 1-2 days for reevaluation and for repeat of his liver enzymes. I encouraged him to call the office this morning. Informed him to have a low threshold to return to ER immediately if he has recurrent worsening pain, any abdominal pain, vomiting, fevers, or feels unwell. Patient agrees with plan will be discharged home. Patient does not have any chest pain or shortness of breath. He has no signs of acute chest syndrome. He did have some runny nose the last few days however he has no other signs of infection. - Vital Signs Vital signs: Temp Pulse Resp BP Pulse Ox 98.5 F 76 18 134/81 H 97 07/06/18 20:07 07/06/18 20:07 07/06/18 20:07 07/06/18 20:07 07/06/18 20:07 - Laboratory Result Diagrams: 07/06/18 21:59 07/06/18 21:59 Laboratory results interpreted by me: 07/06/18 07/06/18 21:59 21:59 RBC 2.89 L Hgb 9.7 L Hct 27.8 L RDW 22.3 H Retic Count (auto) 6.66 H Absolute Retic 0.193 H Potassium 3.2 L Total Bilirubin 2.0 H AST 350 H ALT 81 H Discharge - Discharge Clinical Impression: Sickle cell pain crisis Sickle cell anemia Qualifiers: Sickle-cell associated disorders: with unspecified crisis Qualified Code(s): D57.00 - Hb-SS disease with crisis, unspecified Cholelithiasis Qualifiers: Cholelithiasis location: gallbladder Cholecystitis presence: without cholecystitis Biliary obstruction: without biliary obstruction Qualified Code(s): K80.20 - Calculus of gallbladder without cholecystitis without obstruction Condition: Good Disposition: HOME, SELF-CARE Additional Instructions: As discussed with you, you do have a very slight elevation in your liver enzymes. I have printed off your laboratory results to take to Dr. Stapleton. I want you to call Dr. Stapleton's office this morning to make a close follow-up appointment. Please have a very low threshold to return to ER if you have recurrent worsening pain, any pain in your abdomen, fevers, vomiting, or if you feel unwell in any way. Referrals: BETH STAPLETON MD [Primary Care Provider] - Follow up tomorrow
[2018-07-07 05:08] VITALS: BP 120/82
== END 2018-07-07 05:08 | disposition home or self-care (01) ==
LOC: ER 19:58
DX: K80.20 Calculus of gallbladder without cholecystitis without obstruction (principal); D57.00 Hb-SS disease with crisis, unspecified; M79.10 Myalgia, unspecified site
CPT/HCPCS: 36591; 96376; 99284; 96361; 96374; 96375; 36415; 85025; 85045; 80053; 76705; 93976; A9270 ×2; J1200 ×2; J1170 ×2; J7030

== ENCOUNTER 2018-07-09 01:22 | Emergency (ER) | payer MEDICARE, MEDICAID ==
[2018-07-09] MEDS ORDERED: NORMAL SALINE 1000 ML 1,000 ML IV ONE (02:05)
[2018-07-09] MEDS ORDERED: HYDROMORPHONE HCL INJ/PF 2 MG/ML AMPULE IV ONE ×2 (02:05→04:08)
[2018-07-09] MEDS ORDERED: DIPHENHYDRAMINE HCL 50 MG/ML VIAL IV ONE ×2 (02:06→04:09)
--- NOTE | 2018-07-09 02:51 | ER Document Report ---
ED General - General Chief Complaint: Sickle Cell Crisis Stated Complaint: BACK PAIN Time Seen by Provider: 07/09/18 01:49 Primary Care Provider: BETH STAPLETON MD [Primary Care Provider] - Follow up as needed Mode of Arrival: Ambulatory Information source: Patient, [facility] Records Notes: 37-year-old male with sickle cell disease, avascular necrosis of the right hip, seizure disorder presents with diffuse myalgia. Patient is experiencing pain in his low back, legs. He states this is typical of his sickle cell pain flare. He states his last flare was several months ago. He denies any recent illness, cough, chest pain, shortness of breath. Patient did take his home pain medication without relief. TRAVEL OUTSIDE OF THE [place] IN LAST 30 DAYS: No - HPI Onset: Yesterday Onset/Duration: Gradual, Persistent Quality of pain: Achy Severity: Moderate Associated symptoms: Body/muscle aches. denies: Chest pain, Fever, Headache, Nausea, Vomiting, Shortness of breath Exacerbated by: Denies Relieved by: Denies Similar symptoms previously: Yes Recently seen / treated by doctor: Yes - Related Data Allergies/Adverse Reactions: famotidine [From Pepcid] Allergy (Severe, Verified 07/09/18 01:33) Anaphylaxis ketorolac tromethamine [From Toradol] Allergy (Severe, Verified 07/09/18 01:33) levofloxacin [From Levaquin] Allergy (Severe, Verified 07/09/18 01:33) meperidine HCl [From Demerol] Allergy (Severe, Verified 07/09/18 01:33) morphine [Morphine] Allergy (Severe, Verified 07/09/18 01:33) tramadol HCl [From Ultram] Allergy (Severe, Verified 07/09/18 01:33) amoxicillin [Amoxicillin] Allergy (Verified 07/09/18 01:33) fentanyl [Fentanyl] Allergy (Verified 07/09/18 01:33) latex [Latex] Allergy (Verified 07/09/18 01:33) ondansetron HCl [From Zofran] Allergy (Verified 07/09/18 01:33) Pork/Porcine Containing Products Allergy (Verified 07/09/18 01:33) Past Medical History - General Information source: Patient, [facility] Records - Social History Smoking Status: Never Smoker Frequency of alcohol use: None Drug Abuse: None Lives with: Family Family History: Other - Sickle cell disease Patient has suicidal ideation: No Patient has homicidal ideation: No - Past Medical History Cardiac Medical History: Denies: Hx Atrial Fibrillation, Hx Congestive Heart Failure, Hx Coronary Artery Disease Pulmonary Medical History: Denies: Hx Bronchitis, Hx Tuberculosis Neurological Medical History: Reports: Hx Seizures. Denies: Hx Migraine Endocrine Medical History: Denies: Hx Diabetes Mellitus Type 1, Hx Diabetes Mellitus Type 2 Renal/ Medical History: Denies: Hx Peritoneal Dialysis GI Medical History: Denies: Hx Cirrhosis, Hx Hepatitis Musculoskeletal Medical History: Denies Hx Arthritis, Denies Hx Gout, Reports Hx Musculoskeletal Deformity - right hip avascular necrosis Skin Medical History: Denies Hx Eczema, Denies Hx Psoriasis Psychiatric Medical History: Denies: Hx Depression Infectious Medical History: Denies: Hx Hepatitis Past Surgical History: Reports: Hx Appendectomy, Hx Vascular Surgery - L port placement, Other - Port placement - Immunizations Immunizations up to date: Yes Hx Diphtheria, Pertussis, Tetanus Vaccination: Yes Hx Pneumococcal Vaccination: 02/20/11 Review of Systems - Review of Systems Notes: REVIEW OF SYSTEMS: CONSTITUTIONAL : Denies fever, chills, or sweats. Denies recent illness. Denies weight loss, recent hospitalizations. EENT: Denies visual changes, eye pain. Denies sore throat, oral lesions, difficulty swallowing. CARDIOVASCULAR: Denies chest pain. Denies palpitations. Denies lower extremity edema. RESPIRATORY: Denies cough. Denies shortness of breath, wheezing. GASTROINTESTINAL: Denies abdominal pain or distention. Denies nausea, vomiting, or diarrhea. Denies blood in vomitus, stools, or per rectum. Denies black, tarry stools. Denies constipation. GENITOURINARY: Denies difficulty urinating, painful urination, frequency, blood in urine, testicular pain or penile discharge. MUSCULOSKELETAL: Denies neck pain or stiffness. SKIN: Denies rash, lesions or sores. HEMATOLOGIC : Denies easy bruising or bleeding. LYMPHATIC: Denies swollen glands. NEUROLOGICAL: Denies confusion or altered mental status. Denies loss of consciousness. Denies dizziness or lightheadedness. Denies headache. Denies weakness or paralysis. Denies problems difficulty with ambulation, slurred speech. Denies sensory loss, numbness, or tingling. Denies seizures. PSYCHIATRIC: Denies anxiety or stress. Denies depression, suicidal ideation, or Physical Exam - Vital signs Vitals: Temp Pulse Resp BP Pulse Ox 98.0 F 67 14 125/79 96 07/09/18 01:38 07/09/18 01:38 07/09/18 01:38 07/09/18 01:38 07/09/18 01:38 Interpretation: Normal. No: Hypertensive, Febrile - Notes Notes: PHYSICAL EXAMINATION: GENERAL: Well-appearing, well-nourished and in no acute distress. HEAD: Atraumatic, normocephalic. EYES: Pupils equal round and reactive to light, extraocular movements intact, sclera anicteric, conjunctiva are normal. ENT: Nares patent, oropharynx clear without exudates. Moist mucous membranes. NECK: Normal range of motion, supple without lymphadenopathy LUNGS: Breath sounds clear to auscultation bilaterally and equal. No wheezes rales or rhonchi. HEART: Regular rate and rhythm without murmurs ABDOMEN: Soft, nontender, nondistended abdomen. No guarding, no rebound. No masses appreciated. Musculoskeletal: Normal range of motion, no pitting or edema. No cyanosis. NEUROLOGICAL: Cranial nerves grossly intact. Normal speech, normal gait. Normal sensory, motor exams PSYCH: Normal mood, normal affect. SKIN: Warm, Dry, normal turgor, no rashes or lesions noted. Course - Re-evaluation Re-evalutation: Laboratory 07/09/18 07/09/18 02:47 02:47 WBC 6.6 RBC 2.70 L Hgb 9.1 L Hct 26.2 L MCV 97 MCH 33.6 H MCHC 34.6 RDW 21.6 H Plt Count 279 Total Counted 100 Seg Neutrophils % Not Reportable Seg Neuts % (Manual) 54 Lymphocytes % Not Reportable Lymphocytes % (Manual) 32 Monocytes % Not Reportable Monocytes % (Manual) 11 Eosinophils % Not Reportable Eosinophils % (Manual) 2 Basophils % Not Reportable Basophils % (Manual) 1 Absolute Neutrophils Not Reportable Abs Neuts (Manual) 3.6 Absolute Lymphocytes Not Reportable Abs Lymphs (Manual) 2.1 Absolute Monocytes Not Reportable Abs Monocytes (Manual) 0.7 Absolute Eosinophils Not Reportable Absolute Eos (Manual) 0.1 Absolute Basophils Not Reportable Abs Basophils (Manual) 0.1 Large Platelets PRESENT Platelet Comment ADEQUATE Polychromasia 1+ Hypochromasia 2+ Poikilocytosis 1+ Anisocytosis 3+ Sickle Cells 3+ Retic Count (auto) 9.46 H Absolute Retic 0.255 H Sodium 139.1 Potassium 3.4 L Chloride 102 Carbon Dioxide 29 Anion Gap 8 BUN 10 Creatinine 0.72 Est GFR ( Amer) > 60 Est GFR (Non-Af Amer) > 60 Glucose 97 Calcium 9.1 Temp Pulse Resp BP Pulse Ox 98.0 F 67 14 145/90 H 100 07/09/18 01:38 07/09/18 01:38 07/09/18 01:38 07/09/18 04:01 07/09/18 04:01 07/09/18 02:50 37-year-old male with sickle cell disease presents with diffuse body pain greater in his back. States this is typical of his pain flares. Denies any recent illness. Vital signs reviewed and within normal limits upon arrival. Patient does not appear toxic or dehydrated. He is in no acute distress. 07/09/18 04:08 On reevaluation patient is still reporting pain after receiving 2 mg of IV Dilaudid and Benadryl. He states it often takes multiple doses to control his pain. 07/09/18 05:14 After patient's second dose of Dilaudid he was reevaluated and is sleeping peacefully. 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 Patient was evaluated and treated as appropriate for the patient's presenting symptoms and complaint, with consideration of any critical or life threatening conditions that may be associated with their obtained history and exam as noted above. All results were discussed with patient. Patient provided the opportunity to ask questions, and express concerns. Patient was educated on treatments based on their presumed diagnosis as noted above. At this time we will discharge the patient with return precautions and follow-up recommendations. Verbal discharge instructions given a the bedside. Medication warnings reviewed. Patient is in agreement with this plan and has verbalized understanding of return precautions. After careful consideration I feel that that patient can be safely discharged from the emergency department, they were advised to followup with a primary care physician in 2-3 days. Dictation on this chart was performed using voice recognition software and may result in unintended grammatical, spelling, syntax or errors. - Vital Signs Vital signs: Temp Pulse Resp BP Pulse Ox 97.5 F 67 14 144/89 H 98 07/09/18 05:31 07/09/18 01:38 07/09/18 01:38 07/09/18 05:31 07/09/18 05:31 - Laboratory Result Diagrams: 07/09/18 02:47 07/09/18 02:47 Laboratory results interpreted by me: 07/09/18 07/09/18 02:47 02:47 RBC 2.70 L Hgb 9.1 L Hct 26.2 L MCH 33.6 H RDW 21.6 H Retic Count (auto) 9.46 H Absolute Retic 0.255 H Potassium 3.4 L Discharge - Discharge Clinical Impression: Sickle cell pain crisis Joint pain Qualifiers: Joint pain location: unspecified Qualified Code(s): M25.50 - Pain in unspecified joint Avascular necrosis of hip Qualifiers: Laterality: right Qualified Code(s): M87.051 - Idiopathic aseptic necrosis of right femur Condition: Good Disposition: HOME, SELF-CARE Instructions: Sickle Cell Crisis ([facility]) Forms: Elevated Blood Pressure, Return to Work Referrals: BETH STAPLETON MD [Primary Care Provider] - Follow up as needed
[2018-07-09 03:05] LABS: ABSOLUTE RETICS # 0.255 10^6/uL (0.028-0.122); HEMATOCRIT 26.2 % (37.9-51.0); HEMOGLOBIN 9.1 g/dL (13.5-17.0); MEAN CORPUSCULAR HEMOGLOBIN 33.6 pg (27.0-33.4); MEAN CORPUSCULAR HGB CONC 34.6 g/dL (32.0-36.0); MEAN CORPUSCULAR VOLUME 97 fl (80-97); PLATELET COUNT 279 10^3/uL (150-450); RED CELL DISTRIBUTION WIDTH 21.6 % (11.5-14.0); RETICULOCYTE COUNT (AUTO) 9.46 % (0.66-2.85); WHITE BLOOD COUNT 6.6 10^3/uL (4.0-10.5)
[2018-07-09 03:26] LABS: ANION GAP 8 (5-19); BLOOD UREA NITROGEN 10 mg/dL (7-20); CALCIUM 9.1 mg/dL (8.4-10.2); CARBON DIOXIDE 29 mmol/L (22-30); CHLORIDE 102 mmol/L (98-107); GLUCOSE 97 mg/dL (75-110); POTASSIUM 3.4 mmol/L (3.6-5.0); SODIUM 139.1 mmol/L (137-145)
[2018-07-09] MEDS ORDERED: POTASSIUM CHLORIDE 10 MEQ CAPSULE.ER PO ONE (03:34)
[2018-07-09 03:37] LABS: ABSOLUTE LYMPHOCYTES# (MANUAL) 2.1 10^3/uL (0.5-4.7); ABSOLUTE MONOCYTES # (MANUAL) 0.7 10^3/uL (0.1-1.4); ABSOLUTE NEUTROPHILS# (MANUAL) 3.6 10^3/uL (1.7-8.2); BASOPHILS % (MANUAL) 1 % (0-2); EOSINOPHILS % (MANUAL) 2 % (0-6); LYMPHOCYTES % (MANUAL) 32 % (13-45); MONOCYTES % (MANUAL) 11 % (3-13); SEGMENTED NEUTROPHILS % (MAN) 54 % (42-78); TOTAL CELLS COUNTED 100
[2018-07-09 03:40] LABS: ANISOCYTOSIS 3+; HYPOCHROMASIA 2+; PLATELET COMMENT ADEQUATE; PLATELET LARGE PRESENT; POIKILOCYTOSIS 1+; POLYCHROMASIA 1+; SICKLE RED CELLS 3+
[2018-07-09 05:34] VITALS: BP 144/89
== END 2018-07-09 05:56 | disposition home or self-care (01) ==
LOC: ER 01:22
DX: D57.00 Hb-SS disease with crisis, unspecified (principal); M87.051 Idiopathic aseptic necrosis of right femur; M54.5 Low back pain; Z88.1 Allergy status to other antibiotic agents; M25.50 Pain in unspecified joint; Z88.5 Allergy status to narcotic agent; Z88.0 Allergy status to penicillin; Z91.040 Latex allergy status; Z91.018 Allergy to other foods; Z87.892 Personal history of anaphylaxis; Z88.8 Allergy status to other drugs, medicaments and biological substances
CPT/HCPCS: 96376; 99284; 96361; 96374; 96375; 36415; 85025; 85045; 80048; J1200; J1170; J7030; A9270

== ENCOUNTER 2018-07-09 12:57 | Outpatient (CLI) | payer MEDICARE, MEDICAID ==
[2018-07-09] MEDS ORDERED: NORMAL SALINE 1000 ML 1,000 ML IV PRN (13:03)
[2018-07-09] MEDS ORDERED: DIPHENHYDRAMINE HCL 25 MG in NORMAL SALINE 50 ML IV PRN (13:03)
[2018-07-09] MEDS ORDERED: HYDROMORPHONE HCL INJ/PF 2 MG/ML AMPULE IV PRN (13:04)
[2018-07-09 13:23] VITALS: BP 146/90
== END 2018-07-09 15:03 | disposition home or self-care (01) ==
LOC: II 12:57 → 5TH 13:01 → II 15:03
PROVIDERS: ATTEND Internal Medicine
PROC: 3E043GC Introduction of Other Therapeutic Substance into Central Vein, Percutaneous Approach (ICD-10-PCS; principal; 2018-07-09)
PROC: 3E0437Z Introduction of Electrolytic and Water Balance Substance into Central Vein, Percutaneous Approach (ICD-10-PCS; 2018-07-09)
DX: D57.1 Sickle-cell disease without crisis (principal); E86.0 Dehydration; R52 Pain, unspecified
CPT/HCPCS: 96365; 96374; 96360; J1200; J1170; 96361; 96375

== ENCOUNTER 2018-07-10 13:08 | Outpatient (CLI) | payer MEDICARE, MEDICAID ==
[~2018-07-10 13:08] MED LIST changes: +DIPHENHYDRAMINE HCL 25 MG in NORMAL SALINE 50 ML IV PRN; -DIPHENHYDRAMINE HCL 50 MG/ML VIAL IV PRN
[2018-07-10 14:14] VITALS: BP 109/64
== END 2018-07-10 15:09 | disposition home or self-care (01) ==
LOC: II 13:08 → 5TH 13:22 → II 15:09
PROVIDERS: ATTEND Internal Medicine
PROC: 3E0437Z Introduction of Electrolytic and Water Balance Substance into Central Vein, Percutaneous Approach (ICD-10-PCS; principal; 2018-07-10)
PROC: 3E043GC Introduction of Other Therapeutic Substance into Central Vein, Percutaneous Approach (ICD-10-PCS; 2018-07-10)
DX: D57.1 Sickle-cell disease without crisis (principal); E86.0 Dehydration; R52 Pain, unspecified
CPT/HCPCS: 96367; 96374; 96375; 96360; 96361; J1200; J1170; 96365

== ENCOUNTER 2018-07-11 12:15 | Outpatient (CLI) | payer MEDICARE, MEDICAID ==
[2018-07-11] MEDS ORDERED: NORMAL SALINE 1000 ML 1,000 ML IV PRN (12:24)
[2018-07-11] MEDS ORDERED: DIPHENHYDRAMINE HCL 25 MG in NORMAL SALINE 50 ML IV PRN (12:24)
[2018-07-11] MEDS ORDERED: HYDROMORPHONE HCL INJ/PF 2 MG/ML AMPULE IV PRN (12:25)
[2018-07-11 13:36] VITALS: BP 115/74
== END 2018-07-11 14:41 | disposition home or self-care (01) ==
LOC: II 12:15 → 5TH 12:17 → II 14:41
PROVIDERS: ATTEND Internal Medicine
PROC: 3E043GC Introduction of Other Therapeutic Substance into Central Vein, Percutaneous Approach (ICD-10-PCS; principal; 2018-07-11)
PROC: 3E0437Z Introduction of Electrolytic and Water Balance Substance into Central Vein, Percutaneous Approach (ICD-10-PCS; 2018-07-11)
DX: D57.1 Sickle-cell disease without crisis (principal); E86.0 Dehydration; R52 Pain, unspecified
CPT/HCPCS: 96367; 96374; 96375; 96360; 96361; J1200; J1170

== ENCOUNTER 2018-07-13 03:30 | Emergency (ER) | payer MEDICARE, MEDICAID ==
[2018-07-13] MEDS ORDERED: DIPHENHYDRAMINE HCL 50 MG/ML VIAL IV ONE ×2 (05:16→09:48)
[2018-07-13] MEDS ORDERED: HYDROMORPHONE HCL INJ/PF 2 MG/ML AMPULE IV ONE ×3 (05:17→09:48)
[2018-07-13 06:01] LABS: HEMATOCRIT 26.3 % (37.9-51.0); HEMOGLOBIN 9.3 g/dL (13.5-17.0); MEAN CORPUSCULAR HEMOGLOBIN 34.3 pg (27.0-33.4); MEAN CORPUSCULAR HGB CONC 35.2 g/dL (32.0-36.0); MEAN CORPUSCULAR VOLUME 97 fl (80-97); PLATELET COUNT 242 10^3/uL (150-450); RED BLOOD COUNT 2.71 10^6/uL (4.35-5.55); RED CELL DISTRIBUTION WIDTH 21.9 % (11.5-14.0); WHITE BLOOD COUNT 6.5 10^3/uL (4.0-10.5)
[2018-07-13 06:07] LABS: ALANINE AMINOTRANSFERASE 81 U/L (21-72); ALBUMIN 4.1 g/dL (3.5-5.0); ALKALINE PHOSPHATASE 69 U/L (38-126); ANION GAP 7 (5-19); ASPARTATE AMINO TRANSFERASE 210 U/L (17-59); BILIRUBIN,DIRECT 0.2 mg/dL (0.0-0.4); BILIRUBIN,TOTAL 1.7 mg/dL (0.2-1.3); BLOOD UREA NITROGEN 10 mg/dL (7-20); CALCIUM 9.2 mg/dL (8.4-10.2); CARBON DIOXIDE 29 mmol/L (22-30); CHLORIDE 102 mmol/L (98-107); GLUCOSE 86 mg/dL (75-110); POTASSIUM 3.9 mmol/L (3.6-5.0); SODIUM 138.2 mmol/L (137-145); TOTAL PROTEIN 7.9 g/dL (6.3-8.2)
[2018-07-13 06:49] LABS: ABSOLUTE LYMPHOCYTES# (MANUAL) 1.6 10^3/uL (0.5-4.7); ABSOLUTE NEUTROPHILS# (MANUAL) 3.8 10^3/uL (1.7-8.2); BASOPHILS % (MANUAL) 0 % (0-2); EOSINOPHILS % (MANUAL) 2 % (0-6); LYMPHOCYTES % (MANUAL) 24 % (13-45); MONOCYTES % (MANUAL) 15 % (3-13); NUCLEATED RED BLOOD CELLS 5 /100 WBC (0); SEGMENTED NEUTROPHILS % (MAN) 59 % (42-78); TOTAL CELLS COUNTED 100
[2018-07-13 06:52] LABS: ANISOCYTOSIS 3+; POLYCHROMASIA 1+; SCHISTOCYTES SLIGHT
[2018-07-13 06:53] LABS: PLATELET COMMENT ADEQUATE; SICKLE RED CELLS 3+; TARGET CELLS 2+
--- NOTE | 2018-07-13 07:56 | ER Document Report ---
ED General - General TRAVEL OUTSIDE OF THE [place] IN LAST 30 DAYS: No <DELIA WOLF - Last Filed: 07/13/18 07:50> <NIMATY - Last Filed: 07/13/18 09:52> - General Chief Complaint: Pain All Over Stated Complaint: ABDOMINAL PAIN Time Seen by Provider: 07/13/18 05:02 Primary Care Provider: BETH MEDELLIN MD [Primary Care Provider] - Follow up as needed Notes: Patient is a 37-year-old male sickle cell patient well-known to the emergency de partment. He has generalized pain "all over." Patient is also complaining of generalized periumbilical abdominal pain. States it started last evening around midnight. States he did take his at home medications which has helped. States he has been to his oncologist Dr. Medellin multiple times this week for same. States he is "working on my glucose." Patient states the pain in his abdomen has become so severe which is why he presents to the emergency room. Patient's denying any nausea, vomiting, diarrhea, fevers, chest pain, shortness of breath. (DELIA WOLF) - Related Data Allergies/Adverse Reactions: famotidine [From Pepcid] Allergy (Severe, Verified 07/13/18 03:47) Anaphylaxis ketorolac tromethamine [From Toradol] Allergy (Severe, Verified 07/13/18 03:47) levofloxacin [From Levaquin] Allergy (Severe, Verified 07/13/18 03:47) meperidine HCl [From Demerol] Allergy (Severe, Verified 07/13/18 03:47) morphine [Morphine] Allergy (Severe, Verified 07/13/18 03:47) tramadol HCl [From Ultram] Allergy (Severe, Verified 07/13/18 03:47) amoxicillin [Amoxicillin] Allergy (Verified 07/13/18 03:47) fentanyl [Fentanyl] Allergy (Verified 07/13/18 03:47) latex [Latex] Allergy (Verified 07/13/18 03:47) ondansetron HCl [From Zofran] Allergy (Verified 07/13/18 03:47) Pork/Porcine Containing Products Allergy (Verified 07/13/18 03:47) Past Medical History - General Information source: Patient - Social History Smoking Status: Never Smoker Chew tobacco use (# tins/day): No Frequency of alcohol use: None Drug Abuse: None Family History: Other - Sickle cell disease Patient has suicidal ideation: No Patient has homicidal ideation: No - Past Medical History Cardiac Medical History: Denies: Hx Atrial Fibrillation, Hx Congestive Heart Failure, Hx Coronary Artery Disease Pulmonary Medical History: Denies: Hx Bronchitis, Hx Tuberculosis Neurological Medical History: Reports: Hx Seizures. Denies: Hx Migraine Endocrine Medical History: Denies: Hx Diabetes Mellitus Type 1, Hx Diabetes Mellitus Type 2 Renal/ Medical History: Denies: Hx Peritoneal Dialysis GI Medical History: Denies: Hx Cirrhosis, Hx Hepatitis Musculoskeletal Medical History: Denies Hx Arthritis, Denies Hx Gout, Reports Hx Musculoskeletal Deformity - right hip avascular necrosis Skin Medical History: Denies Hx Eczema, Denies Hx Psoriasis Psychiatric Medical History: Denies: Hx Depression Infectious Medical History: Denies: Hx Hepatitis Past Surgical History: Reports: Hx Appendectomy, Hx Vascular Surgery - L port placement, Other - Port placement - Immunizations Immunizations up to date: Yes Hx Diphtheria, Pertussis, Tetanus Vaccination: Yes Hx Pneumococcal Vaccination: 02/20/11 <DELIA WOLF - Last Filed: 07/13/18 07:50> Review of Systems - Review of Systems Constitutional: denies: Fever EENT: No symptoms reported Cardiovascular: denies: Chest pain, Dyspnea Respiratory: denies: Cough, Hemoptysis, Short of breath Gastrointestinal: See HPI Genitourinary: No symptoms reported Male Genitourinary: No symptoms reported Musculoskeletal: See HPI Skin: No symptoms reported Neurological/Psychological: No symptoms reported <DELIA WOLF - Last Filed: 07/13/18 07:50> Physical Exam <DELIA WOLF - Last Filed: 07/13/18 07:50> - Notes Notes: GENERAL: Alert, interacts well. No acute distress. HEAD: Normocephalic, atraumatic. EYES: Pupils equal, round, and reactive to light. Extraocular movements intact. ENT: Oral mucosa moist, tongue midline. NECK: Full range of motion. Supple. Trachea midline. LUNGS: Clear to auscultation bilaterally, no wheezes, rales, or rhonchi. No respiratory distress. HEART: Regular rate and rhythm. No murmur ABDOMEN: Soft, Non-distended. Bowel sounds present in all 4 quadrants. Generalized abdominal pain noted periumbilical and left lower quadrant. EXTREMITIES: Moves all 4 extremities spontaneously. No edema, normal radial and dorsalis pedis pulses bilaterally. No cyanosis. BACK: no cervical, thoracic, lumbar midline tenderness. No saddle anesthesia, normal distal neurovascular exam. NEUROLOGICAL: Alert and oriented x3. Normal speech. cranial nerves II through XII grossly intact PSYCH: Normal affect, normal mood. SKIN: Warm, dry, normal turgor. No rashes or lesions noted. (DELIA WOLF) Course - Laboratory Result Diagrams: 07/13/18 05:32 07/13/18 05:32 <DELIA WOLF - Last Filed: 07/13/18 07:50> - Laboratory Result Diagrams: 07/13/18 05:32 07/13/18 05:32 <TY HERRIGN - Last Filed: 07/13/18 09:52> - Re-evaluation Re-evalutation: Patient was initially treated with Benadryl and Dilaudid. States pain in his abdomen continues. Discussed use of CT to rule out any pathology in his abdomen. Patient states his port is not a power port and cannot sustain IV contrast. Discussed that I would like to obtain a contrasted CT of his abdomen and pelvis to rule out any pathology. Nursing staff was able to obtain a peripheral IV using ultrasound-guided techniques. Patient currently being brought to CT. 07:56 Patient care and report was transferred to [facility] [place] for review of CT scan and further treatments. (DELIA WOLF) 07/13/18 09:49 Patient is an afebrile, well-hydrated, 37-year-old male who presents emergency department with sickle cell crisis and abdominal pain, unspecified. Vitals are currently acceptable without significant tachycardia, tachypnea, or hypoxia. Labs are at baseline. CT scan unremarkable for acute pathology aside from known cholelithiasis. I did speak with the radiologist pertaining to difficulty in obtaining IV access and CT with or without IV contrast. He states that we can perform the CT without. Patient states that the pain he was having his lower abdomen and he has not had any vomiting or diarrhea. Patient states that his pain has significantly improved. He is feeling much better and is nontoxic- appearing. He is tolerating p.o. without difficulty. I did speak with Dr. Pena who agrees with plan and disposition as well. Low suspicion/risk for ac [place] appendicitis, bowel obstruction, acute cholecystitis, perforated diverticulitis, incarcerated hernia, pancreatitis, perforated ulcer, peritonitis, sepsis, testicular torsion, or other systemic emergent condition at this time. Patient is aware that his condition can change from initial presentation and he needs to monitor symptoms closely and seek medical attention if any acute changes. Conservative measures otherwise for symptoms. Recheck with your packaging assembler in 2-3 days. Return to the ED with any worsening/concerning symptoms otherwise as reviewed in discharge. Patient is in agreement. (TY HERRING) - Laboratory Laboratory results interpreted by me: 07/13/18 07/13/18 07/13/18 05:32 05:32 05:32 RBC 2.71 L Hgb 9.3 L Hct 26.3 L MCH 34.3 H RDW 21.9 H Monocytes % (Manual) 15 H Retic Count (auto) 10.55 H Absolute Retic 0.292 H Total Bilirubin 1.7 H AST 210 H ALT 81 H Discharge <DELIA WOLF - Last Filed: 07/13/18 07:50> <TY HERRING - Last Filed: 07/13/18 09:52> - Discharge Clinical Impression: Sickle cell pain crisis, Lower abdominal pain Condition: Stable Disposition: HOME, SELF-CARE Instructions: Abdominal Pain ([facility]) Additional Instructions: Maintain adequate fluid and food intake Healthy diet tylenol if needed Monitor for any worsening symptoms Make sure you are staying hydrated enough to urinate and have normal BM's Recheck with your PCM/packaging assembler in 2-3 days Consider consult with Gastroenterology for ongoing/worsening symptoms Return to the ED with any worsening symptoms and/or development of fever, headache, chest pain, palpitations, syncope, shortness of breath, trouble breathing, abdominal pain, n/v/d, blood in stool/urine, weakness, or other worsening symptoms that are concerning to you. Referrals: BETH MEDELLIN MD [Primary Care Provider] - 07/15/18
[2018-07-13 08:36] LABS: LIPASE 68.1 U/L (23-300)
--- NOTE | 2018-07-13 09:16 | RADIOLOGY REPORT (SQ) ---
EXAM DESCRIPTION: CT ABD/PELVIS NO ORAL OR IV COMPLETED DATE/TIME: 07/13/2018 9:00 am REASON FOR STUDY: periumbilical pain, Sickle cell COMPARISON: None. TECHNIQUE: CT scan of the abdomen and pelvis performed without intravenous or oral contrast. Images reviewed with lung, soft tissue, and bone windows. Reconstructed coronal and sagittal MPR images revi ewed. All images stored on PACS. All CT scanners at this facility use dose modulation, iterative reconstruction, and/or weight based d osing when appropriate to reduce radiation dose to as low as reasonably achievable (ALARA). [facility]: Dose Right [facility]: CareDose [facility]: Dose Right [facility]: Teradose 4D [facility]: Smart Rontal Applications RADIATION DOSE: CT Rad equipment meets quality standard of care and radiation dose reduction techniq ues were employed. CTDIvol: 6.3 mGy. DLP: 338 mGy-cm.mGy. LIMITATIONS: None. FINDINGS: Attempts were made to obtain IV access and were unsuccessful. Therefore the study is perf ormed without contrast. LOWER CHEST: Areas of scarring in the lung bases. Patchy peripheral areas of scar/ atelectasis. No pleural fluid. Cardiomegaly. NON-CONTRASTED LIVER, SPLEEN, ADRENALS: Liver unremarkable. Dense spleen, likely calcification from chronic infarct. No adrenal mass. PANCREAS: No masses. No peripancreatic inflammatory changes. GALLBLADDER: Cholelithiasis. Gallbladder otherwise looks normal. RIGHT KIDNEY AND URETER: No solid masses. No significant calcification. No hydronephrosis or hydroure ter. LEFT KIDNEY AND URETER: Probable cysts. No stones or urinary tract obstruction. AORTA AND RETROPERITONEUM: No aneurysm. No retroperitoneal masses or adenopathy. BOWEL AND PERITONEAL CAVITY: Moderate stool in the proximal colon. No evidence of bowel obstruction or inflammatory process. No ascites or abnormal gas. APPENDIX: Surgically absent. PELVIS, BLADDER, AND ABDOMINAL WALL:Decompressed somewhat thick-walled bladder. Calcified phlebolith s. No pelvic free fluid. BONES: No fracture. Heterogeneous bone density likely related to history of sickle cell disease. Sc lerosis, AVN without collapse in the right femoral head. OTHER: No other significant finding. IMPRESSION: 1. No acute abdominopelvic abnormality is detected. 2. Cholelithiasis. 3. Stool retention. 4. Areas of opacity in the lung bases which likely reflect scar. 5. Cardiomegaly. 6. Other changes related to the patient's history of sickle cell disease in the spleen and bones. TECHNICAL DOCUMENTATION: JOB ID: [id number] Quality ID # [id number]: Final reports with documentation of one or more dose reduction techniques (e.g., Au tomated exposure control, adjustment of the mA and/or kV according to patient size, use of iterative reconstruction technique) 2010 [employer]- All Rights Reserved Reading location - IP/workstation name: [email or web address]
[2018-07-13 09:18] LABS: ABSOLUTE RETICS # 0.292 10^6/uL (0.028-0.122); RETICULOCYTE COUNT (AUTO) 10.55 % (0.66-2.85)
[2018-07-13 10:20] VITALS: BP 134/87
== END 2018-07-13 10:40 | disposition home or self-care (01) ==
LOC: ER 03:30
DX: D57.00 Hb-SS disease with crisis, unspecified (principal); R10.32 Left lower quadrant pain; R10.33 Periumbilical pain; Z88.8 Allergy status to other drugs, medicaments and biological substances; Z88.1 Allergy status to other antibiotic agents; Z88.5 Allergy status to narcotic agent; Z88.0 Allergy status to penicillin; Z91.040 Latex allergy status; Z91.018 Allergy to other foods; Z90.49 Acquired absence of other specified parts of digestive tract
CPT/HCPCS: 36591; 96376; 99284; 96374; 96375; 36415; 83690; 85025; 85045; 80053; 74176; J1200; J1170

== ENCOUNTER 2018-07-15 13:04 | Outpatient (CLI) | payer MEDICARE, MEDICAID ==
[2018-07-15 14:04] VITALS: BP 133/71
== END 2018-07-15 15:45 | disposition home or self-care (01) ==
LOC: II 13:04 → 5TH 13:05 → II 15:45
PROVIDERS: ATTEND Internal Medicine
PROC: 3E043GC Introduction of Other Therapeutic Substance into Central Vein, Percutaneous Approach (ICD-10-PCS; principal; 2018-07-15)
PROC: 3E0437Z Introduction of Electrolytic and Water Balance Substance into Central Vein, Percutaneous Approach (ICD-10-PCS; 2018-07-15)
DX: D57.1 Sickle-cell disease without crisis (principal); E86.0 Dehydration; R52 Pain, unspecified
CPT/HCPCS: 96367; 96374; 96375; 96360; 96361; J1200; J1170; 96365

== ENCOUNTER 2018-07-16 12:42 | Outpatient (CLI) | payer MEDICARE, MEDICAID ==
[2018-07-16] MEDS ORDERED: NORMAL SALINE 1000 ML 1,000 ML IV PRN (13:23)
[2018-07-16] MEDS ORDERED: DIPHENHYDRAMINE HCL 25 MG in NORMAL SALINE 50 ML IV PRN (13:23)
[2018-07-16] MEDS ORDERED: HYDROMORPHONE HCL INJ/PF 2 MG/ML AMPULE IV PRN (13:24)
[2018-07-16 16:08] VITALS: BP 112/56
== END 2018-07-16 16:30 | disposition home or self-care (01) ==
LOC: II 12:42 → 5TH 13:37 → II 16:30
PROVIDERS: ATTEND Internal Medicine
PROC: 3E043GC Introduction of Other Therapeutic Substance into Central Vein, Percutaneous Approach (ICD-10-PCS; principal; 2018-07-16)
PROC: 3E0437Z Introduction of Electrolytic and Water Balance Substance into Central Vein, Percutaneous Approach (ICD-10-PCS; 2018-07-16)
DX: D57.1 Sickle-cell disease without crisis (principal); E86.0 Dehydration; R52 Pain, unspecified
CPT/HCPCS: 96367; 96374; 96360; 96361; J1200; J1170; 96365; 96375

== ENCOUNTER 2018-07-18 01:19 | Emergency (ER) | payer MEDICARE, MEDICAID ==
[2018-07-18 05:43] LABS: ALANINE AMINOTRANSFERASE 59 U/L (21-72); ALKALINE PHOSPHATASE 68 U/L (38-126); ANION GAP 8 (5-19); ASPARTATE AMINO TRANSFERASE 86 U/L (17-59); BILIRUBIN,DIRECT 0.4 mg/dL (0.0-0.4); BILIRUBIN,TOTAL 2.5 mg/dL (0.2-1.3); BLOOD UREA NITROGEN 11 mg/dL (7-20); CALCIUM 9.1 mg/dL (8.4-10.2); CARBON DIOXIDE 27 mmol/L (22-30); CHLORIDE 103 mmol/L (98-107); GLUCOSE 86 mg/dL (75-110); POTASSIUM 3.6 mmol/L (3.6-5.0); SODIUM 138.4 mmol/L (137-145); TOTAL PROTEIN 7.9 g/dL (6.3-8.2)
[2018-07-18 05:45] LABS: ABSOLUTE RETICS # 0.232 10^6/uL (0.028-0.122); HEMATOCRIT 27.5 % (37.9-51.0); HEMOGLOBIN 9.7 g/dL (13.5-17.0); MEAN CORPUSCULAR HEMOGLOBIN 34.2 pg (27.0-33.4); MEAN CORPUSCULAR HGB CONC 35.5 g/dL (32.0-36.0); MEAN CORPUSCULAR VOLUME 97 fl (80-97); PLATELET COUNT 275 10^3/uL (150-450); RED BLOOD COUNT 2.85 10^6/uL (4.35-5.55); RED CELL DISTRIBUTION WIDTH 22.8 % (11.5-14.0); RETICULOCYTE COUNT (AUTO) 8.15 % (0.66-2.85); WHITE BLOOD COUNT 6.9 10^3/uL (4.0-10.5)
[2018-07-18] MEDS ORDERED: NORMAL SALINE 1000 ML 1,000 ML IV ONE (06:15)
[2018-07-18 06:19] LABS: ABSOLUTE LYMPHOCYTES# (MANUAL) 1.9 10^3/uL (0.5-4.7); ABSOLUTE MONOCYTES # (MANUAL) 0.6 10^3/uL (0.1-1.4); ABSOLUTE NEUTROPHILS# (MANUAL) 4.3 10^3/uL (1.7-8.2); BAND NEUTROPHILS % (MANUAL) 1 % (3-5); BASOPHILS % (MANUAL) 0 % (0-2); EOSINOPHILS % (MANUAL) 1 % (0-6); LYMPHOCYTES % (MANUAL) 28 % (13-45); MONOCYTES % (MANUAL) 8 % (3-13); NUCLEATED RED BLOOD CELLS 1 /100 WBC (0); PLATELET COMMENT ADEQUATE; PLATELET GIANT PRESENT; POIKILOCYTOSIS 2+; POLYCHROMASIA 1+; SEGMENTED NEUTROPHILS % (MAN) 62 % (42-78); SICKLE RED CELLS 2+; TOTAL CELLS COUNTED 100
[2018-07-18] MEDS ORDERED: PROMETHAZINE HCL INJ 25 MG/1 ML VIAL IM ONE (06:30)
[2018-07-18] MEDS ORDERED: HYDROMORPHONE HCL INJ/PF 2 MG/ML AMPULE IV ONE ×2 (06:30→09:33)
[2018-07-18] MEDS ORDERED: OXYCODONE HCL IR 5 MG TABLET PO ONE (06:31)
[2018-07-18] MEDS ORDERED: DIPHENHYDRAMINE HCL 50 MG/ML VIAL IV ONE ×2 (06:31→09:33)
--- NOTE | 2018-07-18 07:32 | RADIOLOGY REPORT (SQ) ---
EXAM DESCRIPTION: XR ABDOMEN SUPINE AND ERECT WITH CHEST (ABD ACUTE SERIES) COMPLETED DATE/TME: 07/18/2018 06:30 CLINICAL HISTORY: 37 years Male, abd pain Comparison: CT, 5 days prior NUMBER OF VIEWS/TECHNIQUE: 3 LIMITATIONS: None. FINDINGS: Intestinal gas pattern is within normal limits. Paucity of bowel gas. Colonic stool retention. No suspicious calcification. Small sclerosis of the right femoral head may indicate avascular necrosis. No acute cardiopulmonary findings. IMPRESSION: 1. Colonic stool retention. 2. Possible AVN of the right femoral head.
[2018-07-18] MEDS ORDERED: MAGNESIUM CITRATE 296 ML BOTTLE PO ONE (10:58)
--- NOTE | 2018-07-18 11:02 | ER Document Report ---
ED General - General Chief Complaint: Abdominal Pain Stated Complaint: ABDOMINAL PAIN Time Seen by Provider: 07/18/18 06:30 Primary Care Provider: BETH STAPLETON MD [Primary Care Provider] - Follow up as needed TRAVEL OUTSIDE OF THE [place] IN LAST 30 DAYS: No - HPI Patient complains to provider of: Abdominal pain Notes: Patient coming in for evaluation of abdominal pain. Patient has a history of sickle cell disease also states diffuse pain. Patient seen his barrel cap setter oncology clinic every day this week because of his pain patient states compl iance with his home pain regimen of methadone and oxycodone. Patient otherwise is resting comfortably upon my evaluation. Denies any changes to his medication denies any fever chills chest pain abdominal pain. - Related Data Allergies/Adverse Reactions: famotidine [From Pepcid] Allergy (Severe, Verified 07/13/18 03:47) Anaphylaxis ketorolac tromethamine [From Toradol] Allergy (Severe, Verified 07/13/18 03:47) levofloxacin [From Levaquin] Allergy (Severe, Verified 07/13/18 03:47) meperidine HCl [From Demerol] Allergy (Severe, Verified 07/13/18 03:47) morphine [Morphine] Allergy (Severe, Verified 07/13/18 03:47) tramadol HCl [From Ultram] Allergy (Severe, Verified 07/13/18 03:47) amoxicillin [Amoxicillin] Allergy (Verified 07/13/18 03:47) fentanyl [Fentanyl] Allergy (Verified 07/13/18 03:47) latex [Latex] Allergy (Verified 07/13/18 03:47) ondansetron HCl [From Zofran] Allergy (Verified 07/13/18 03:47) Pork/Porcine Containing Products Allergy (Verified 07/13/18 03:47) Past Medical History - Social History Smoking Status: Unknown if Ever Smoked Family History: Other - Sickle cell disease Patient has suicidal ideation: No Patient has homicidal ideation: No - Past Medical History Cardiac Medical History: Denies: Hx Atrial Fibrillation, Hx Congestive Heart Failure, Hx Coronary Artery Disease Pulmonary Medical History: Denies: Hx Bronchitis, Hx Tuberculosis Neurological Medical History: Reports: Hx Seizures. Denies: Hx Migraine Endocrine Medical History: Denies: Hx Diabetes Mellitus Type 1, Hx Diabetes Mellitus Type 2 Renal/ Medical History: Denies: Hx Peritoneal Dialysis GI Medical History: Denies: Hx Cirrhosis, Hx Hepatitis Musculoskeletal Medical History: Denies Hx Arthritis, Denies Hx Gout, Reports Hx Musculoskeletal Deformity - right hip avascular necrosis Skin Medical History: Denies Hx Eczema, Denies Hx Psoriasis Psychiatric Medical History: Denies: Hx Depression Infectious Medical History: Denies: Hx Hepatitis Past Surgical History: Reports: Hx Appendectomy, Hx Vascular Surgery - L port placement, Other - Port placement - Immunizations Immunizations up to date: Yes Hx Diphtheria, Pertussis, Tetanus Vaccination: Yes Hx Pneumococcal Vaccination: 02/20/11 Review of Systems - Review of Systems Constitutional: No symptoms reported EENT: No symptoms reported Cardiovascular: No symptoms reported Respiratory: No symptoms reported Gastrointestinal: Abdominal pain Genitourinary: No symptoms reported Male Genitourinary: No symptoms reported Musculoskeletal: Other - Joint pain Skin: No symptoms reported Hematologic/Lymphatic: No symptoms reported Neurological/Psychological: No symptoms reported -: Yes All other systems reviewed and negative Physical Exam - Vital signs Vitals: Temp Pulse Resp BP Pulse Ox 98.4 F 69 17 119/81 94 07/18/18 01:37 07/18/18 01:37 07/18/18 01:37 07/18/18 01:37 07/18/18 01:37 Interpretation: Normal - General General appearance: Appears well, Alert - HEENT Head: Normocephalic, Atraumatic Eyes: Normal Pupils: PERRL - Respiratory Respiratory status: No respiratory distress Chest status: Nontender Breath sounds: Normal Chest palpation: Normal - Cardiovascular Rhythm: Regular Heart sounds: Normal auscultation Murmur: No - Abdominal Inspection: Normal Distension: No distension Bowel sounds: Normal Tenderness: Nontender Organomegaly: No organomegaly - Back Back: Normal, Nontender - Extremities General upper extremity: Normal inspection, Nontender, Normal color, Normal ROM, Normal temperature General lower extremity: Normal inspection, Nontender, Normal color, Normal ROM, Normal temperature, Normal weight bearing. No: Herber's sign - Neurological Neuro grossly intact: Yes Cognition: Normal Orientation: AAOx4 [place] Coma Scale Eye Opening: Spontaneous [place] Coma Scale Verbal: Oriented [place] Coma Scale Motor: Obeys Commands [place] Coma Scale Total: 15 Speech: Normal Motor strength normal: LUE, RUE, LLE, RLE Sensory: Normal - Psychological Associated symptoms: Normal affect, Normal mood - Skin Skin Temperature: Warm Skin Moisture: Dry Skin Color: Normal Course - Re-evaluation Re-evalutation: 07/18/18 12:47 Laboratory studies show low LDH elevation with a decreasing reticulocyte count from previous laboratory studies recently. Patient reevaluated looks to be resting comfortably discussed with barrel cap setter will discharge patient home follow-up with his hematology 07/18/18 12:47 X-ray does show constipation more likely opioid induced. Will give the patient a bottle of mag citrate - Vital Signs Vital signs: Temp Pulse Resp BP Pulse Ox 98.4 F 69 12 126/82 H 93 07/18/18 01:37 07/18/18 01:37 07/18/18 11:01 07/18/18 11:00 07/18/18 11:01 - Laboratory Result Diagrams: 07/18/18 05:00 07/18/18 05:00 Laboratory results interpreted by me: 07/18/18 07/18/18 07/18/18 05:00 05:00 07:30 RBC 2.85 L Hgb 9.7 L Hct 27.5 L MCH 34.2 H RDW 22.8 H Band Neutrophils % 1 L Retic Count (auto) 8.15 H Absolute Retic 0.232 H Total Bilirubin 2.5 H AST 86 H Lactate Dehydrogenase 417 H Discharge - Discharge Clinical Impression: Sickle cell disease, Opiate-induced constipation Condition: Good Disposition: HOME, SELF-CARE Instructions: Abdominal Pain ([facility]) Additional Instructions: I discussed your case with Dr. Garcia. At this time no critical values for your laboratory results your x-rays do show constipation more likely due to your pain medication use. Recommend drinking the mag citrate given here in the ER to help out with your constipation. I would highly recommend taking a daily stool softener. Return to the ER symptoms worsen follow-up with your primary care physician. Referrals: BETH STAPLETON MD [Primary Care Provider] - Follow up as needed
[2018-07-18 11:34] VITALS: BP 126/82
== END 2018-07-18 11:33 | disposition home or self-care (01) ==
LOC: ER 01:19
DX: K59.03 Drug induced constipation (principal); T40.605A Adverse effect of unspecified narcotics, initial encounter; D57.1 Sickle-cell disease without crisis; M25.50 Pain in unspecified joint; Z79.891 Long term (current) use of opiate analgesic; Z88.8 Allergy status to other drugs, medicaments and biological substances; Z88.1 Allergy status to other antibiotic agents; Z88.5 Allergy status to narcotic agent; Z91.040 Latex allergy status; Z91.018 Allergy to other foods
CPT/HCPCS: 36591; 96376; 99284; 96361; 96374; 96375; 36415; 83615; 83690; 85025; 85045; 80053; 74022; J3490; J1200; J1170; J7030; A9270

== ENCOUNTER 2018-07-29 09:12 | Outpatient (CLI) | payer MEDICARE, MEDICAID ==
[2018-07-29 09:44] VITALS: BP 119/75
== END 2018-07-29 11:10 | disposition home or self-care (01) ==
LOC: II 09:12 → 5TH 09:17 → II 11:10
PROVIDERS: ATTEND Internal Medicine
PROC: 3E0437Z Introduction of Electrolytic and Water Balance Substance into Central Vein, Percutaneous Approach (ICD-10-PCS; principal; 2018-07-29)
PROC: 3E043GC Introduction of Other Therapeutic Substance into Central Vein, Percutaneous Approach (ICD-10-PCS; 2018-07-29)
DX: D57.1 Sickle-cell disease without crisis (principal); E86.0 Dehydration; R52 Pain, unspecified
CPT/HCPCS: 96367; 96375; 96360; J1200; J1170; 96361; 96365

== ENCOUNTER 2018-08-08 21:05 | Emergency (ER) | payer MEDICARE, MEDICAID ==
[2018-08-08] MEDS ORDERED: NORMAL SALINE 1000 ML 1,000 ML IV ONE (22:08)
--- NOTE | 2018-08-08 22:08 | ER Document Report ---
ED Medical Screen (RME) - General Chief Complaint: Sickle Cell Crisis Stated Complaint: BODY PAIN Time Seen by Provider: 08/08/18 22:07 Primary Care Provider: BETH STAPLETON MD [Primary Care Provider] - Follow up as needed Mode of Arrival: Ambulatory Information source: Patient Notes: Patient is a 37-year-old male with past medical history of sickle cell disease that presents with chief complaints of generalized body pains and soreness in his joints. He states that pain started at approximately 6 PM. He also reports associated shortness of breath but denies any chest pain. Exam: Patient alert, oriented and answering all questions with no acute distress noted. Lung sounds are clear and equal to auscultation bilaterally. Patient ambulated with a steady gait into triage room. I have greeted and performed a rapid initial assessment of this patient. A comprehensive ED assessment and evaluation of the patient, analysis of test results and completion of the medical decision making process will be conducted by additional ED providers. Dictation of this chart was performed using voice recognition software; therefore, there may be some unintended grammatical errors. TRAVEL OUTSIDE OF THE [place] IN LAST 30 DAYS: No - Related Data Allergies/Adverse Reactions: famotidine [From Pepcid] Allergy (Severe, Verified 07/13/18 03:47) Anaphylaxis ketorolac tromethamine [From Toradol] Allergy (Severe, Verified 07/13/18 03:47) levofloxacin [From Levaquin] Allergy (Severe, Verified 07/13/18 03:47) meperidine HCl [From Demerol] Allergy (Severe, Verified 07/13/18 03:47) morphine [Morphine] Allergy (Severe, Verified 07/13/18 03:47) tramadol HCl [From Ultram] Allergy (Severe, Verified 07/13/18 03:47) amoxicillin [Amoxicillin] Allergy (Verified 07/13/18 03:47) fentanyl [Fentanyl] Allergy (Verified 07/13/18 03:47) latex [Latex] Allergy (Verified 07/13/18 03:47) ondansetron HCl [From Zofran] Allergy (Verified 07/13/18 03:47) Pork/Porcine Containing Products Allergy (Verified 07/13/18 03:47) Past Medical History - Past Medical History Cardiac Medical History: Denies: Hx Atrial Fibrillation, Hx Congestive Heart Failure, Hx Coronary Artery Disease Pulmonary Medical History: Denies: Hx Bronchitis, Hx Tuberculosis Neurological Medical History: Reports: Hx Seizures. Denies: Hx Migraine Endocrine Medical History: Denies: Hx Diabetes Mellitus Type 1, Hx Diabetes Mellitus Type 2 Renal/ Medical History: Denies: Hx Peritoneal Dialysis GI Medical History: Denies: Hx Cirrhosis, Hx Hepatitis Musculoskeltal Medical History: Denies Hx Arthritis, Denies Hx Gout, Reports Hx Musculoskeletal Deformity - right hip avascular necrosis Skin Medical History: Denies Hx Eczema, Denies Hx Psoriasis Psychiatric Medical History: Denies: Hx Depression Infectious Medical History: Denies: Hx Hepatitis Past Surgical History: Reports: Hx Appendectomy, Hx Vascular Surgery - L port placement, Other - Port placement - Immunizations Immunizations up to date: Yes Hx Diphtheria, Pertussis, Tetanus Vaccination: Yes Physical Exam - Vital signs Vitals: Temp Pulse Resp BP Pulse Ox 98.1 F 84 18 125/82 94 08/08/18 22:00 08/08/18 22:00 08/08/18 22:00 08/08/18 22:00 08/08/18 22:00 Course - Vital Signs Vital signs: Temp Pulse Resp BP Pulse Ox 98.1 F 84 18 125/82 94 08/08/18 22:00 08/08/18 22:00 08/08/18 22:00 08/08/18 22:00 08/08/18 22:00 Doctor's Discharge - Discharge Referrals: BETH STAPLETON MD [Primary Care Provider] - Follow up as needed
--- NOTE | 2018-08-08 23:07 | RADIOLOGY REPORT (SQ) ---
EXAM DESCRIPTION: XR CHEST 2 VIEWS COMPLETED DATE/TME: 08/08/2018 22:08 CLINICAL HISTORY: 37 years, Male, shortness of breath, sickle cell patient COMPARISON: 07/18/2018 chest x-ray NUMBER OF VIEWS: 2 TECHNIQUE: Frontal and lateral views of the chest LIMITATIONS: None. FINDINGS: Heart is enlarged but stable. [id number] catheter in place. Coarse chronic interstitial changes bilaterally. No pneumothorax. No confluent airspace opacity. IMPRESSION: Chronic interstitial changes bilaterally. Stable cardiomegaly copyright 2010 [employer]- All Rights Reserved
[2018-08-08] MEDS ORDERED: DIPHENHYDRAMINE HCL 50 MG/ML VIAL IV ONE (23:16)
[2018-08-08] MEDS ORDERED: HYDROMORPHONE HCL INJ/PF 2 MG/ML AMPULE IV ONE (23:16)
[2018-08-08 23:51] LABS: ABSOLUTE RETICS # 0.204 10^6/uL (0.028-0.122); HEMOGLOBIN 9.7 g/dL (13.5-17.0); MEAN CORPUSCULAR HEMOGLOBIN 33.8 pg (27.0-33.4); MEAN CORPUSCULAR HGB CONC 34.7 g/dL (32.0-36.0); MEAN CORPUSCULAR VOLUME 97 fl (80-97); PLATELET COUNT 267 10^3/uL (150-450); RED BLOOD COUNT 2.88 10^6/uL (4.35-5.55); RED CELL DISTRIBUTION WIDTH 21.8 % (11.5-14.0); RETICULOCYTE COUNT (AUTO) 7.09 % (0.66-2.85); WHITE BLOOD COUNT 7.2 10^3/uL (4.0-10.5)
[2018-08-09 00:12] LABS: ANISOCYTOSIS 3+; HOWELL-JOLLY BODIES PRESENT; HYPOCHROMASIA 1+; PLATELET COMMENT ADEQUATE; POLYCHROMASIA 1+; SICKLE RED CELLS 3+; TARGET CELLS 2+
[2018-08-09 00:14] LABS: ABSOLUTE LYMPHOCYTES# (MANUAL) 2.6 10^3/uL (0.5-4.7); ABSOLUTE MONOCYTES # (MANUAL) 0.6 10^3/uL (0.1-1.4); BASOPHILS % (MANUAL) 0 % (0-2); EOSINOPHILS % (MANUAL) 1 % (0-6); LYMPHOCYTES % (MANUAL) 36 % (13-45); MONOCYTES % (MANUAL) 8 % (3-13); NUCLEATED RED BLOOD CELLS 3 /100 WBC (0); SEGMENTED NEUTROPHILS % (MAN) 55 % (42-78); TOTAL CELLS COUNTED 100
[2018-08-09 00:35] LABS: ALANINE AMINOTRANSFERASE 33 U/L (21-72); ALBUMIN 4.1 g/dL (3.5-5.0); ALKALINE PHOSPHATASE 69 U/L (38-126); ANION GAP 6 (5-19); ASPARTATE AMINO TRANSFERASE 38 U/L (17-59); BILIRUBIN,DIRECT 0.4 mg/dL (0.0-0.4); BILIRUBIN,TOTAL 2.1 mg/dL (0.2-1.3); BLOOD UREA NITROGEN 12 mg/dL (7-20); CALCIUM 9.2 mg/dL (8.4-10.2); CARBON DIOXIDE 27 mmol/L (22-30); CHLORIDE 108 mmol/L (98-107); GLUCOSE 79 mg/dL (75-110); POTASSIUM 3.9 mmol/L (3.6-5.0); TOTAL PROTEIN 7.8 g/dL (6.3-8.2)
[2018-08-09] MEDS ORDERED: HYDROMORPHONE HCL INJ/PF 2 MG/ML AMPULE IV ONE ×3 (00:50→03:52)
[2018-08-09] MEDS ORDERED: DIPHENHYDRAMINE HCL 50 MG/ML VIAL IV ONE (02:21)
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
[2018-08-09 05:37] VITALS: BP 127/91
== END 2018-08-09 05:39 | disposition home or self-care (01) ==
LOC: ER 21:05
DX: D57.00 Hb-SS disease with crisis, unspecified (principal); M54.9 Dorsalgia, unspecified; R07.9 Chest pain, unspecified; M25.551 Pain in right hip; M25.552 Pain in left hip; Z88.8 Allergy status to other drugs, medicaments and biological substances; Z88.1 Allergy status to other antibiotic agents; Z88.5 Allergy status to narcotic agent; Z88.0 Allergy status to penicillin; Z91.040 Latex allergy status; Z91.018 Allergy to other foods
CPT/HCPCS: 36591; 96376; 99284; 96361; 96374; 96375; 36415; 85025; 85045; 80053; 71046; J1200 ×2; J1170 ×2; J7030

== ENCOUNTER 2018-08-13 03:14 | Emergency (ER) | payer MEDICARE, MEDICAID ==
[2018-08-13] MEDS ORDERED: HYDROMORPHONE HCL INJ/PF 2 MG/ML AMPULE IV ONE ×3 (03:58→06:03)
[2018-08-13] MEDS ORDERED: DIPHENHYDRAMINE HCL 50 MG/ML VIAL IV ONE ×2 (03:58→06:03)
--- NOTE | 2018-08-13 04:01 | ER Document Report ---
ED General - General Chief Complaint: Sickle Cell Crisis Stated Complaint: TOTAL BODY PAIN Time Seen by Provider: 08/13/18 03:53 Primary Care Provider: BETH STAPLETON MD [Primary Care Provider] - Follow up as needed Notes: Patient is a 37-year-old male with a history of sickle cell anemia that comes to the emergency department for chief complaint of sickle cell body pain. He states the pain is worst in his general back and he also hurts in his joints. He denies specific chest pain, he denies shortness of breath, fever/chills, nausea/vomiting. He follows with hematology Dr. Stapleton, he states that he had recently had his hydroxyurea increased but otherwise has no medication changes. TRAVEL OUTSIDE OF THE [place] IN LAST 30 DAYS: No - Related Data Allergies/Adverse Reactions: famotidine [From Pepcid] Allergy (Severe, Verified 07/13/18 03:47) Anaphylaxis ketorolac tromethamine [From Toradol] Allergy (Severe, Verified 07/13/18 03:47) levofloxacin [From Levaquin] Allergy (Severe, Verified 07/13/18 03:47) meperidine HCl [From Demerol] Allergy (Severe, Verified 07/13/18 03:47) morphine [Morphine] Allergy (Severe, Verified 07/13/18 03:47) tramadol HCl [From Ultram] Allergy (Severe, Verified 07/13/18 03:47) amoxicillin [Amoxicillin] Allergy (Verified 07/13/18 03:47) fentanyl [Fentanyl] Allergy (Verified 07/13/18 03:47) latex [Latex] Allergy (Verified 07/13/18 03:47) ondansetron HCl [From Zofran] Allergy (Verified 07/13/18 03:47) Pork/Porcine Containing Products Allergy (Verified 07/13/18 03:47) Past Medical History - General Information source: Patient - Social History Smoking Status: Never Smoker Frequency of alcohol use: None Drug Abuse: None Lives with: Family Family History: Other - Sickle cell disease - Past Medical History Cardiac Medical History: Denies: Hx Atrial Fibrillation, Hx Congestive Heart Failure, Hx Coronary Artery Disease Pulmonary Medical History: Denies: Hx Bronchitis, Hx Tuberculosis Neurological Medical History: Reports: Hx Seizures. Denies: Hx Migraine Endocrine Medical History: Denies: Hx Diabetes Mellitus Type 1, Hx Diabetes Mellitus Type 2 Renal/ Medical History: Denies: Hx Peritoneal Dialysis GI Medical History: Denies: Hx Cirrhosis, Hx Hepatitis Musculoskeletal Medical History: Denies Hx Arthritis, Denies Hx Gout, Reports Hx Musculoskeletal Deformity - right hip avascular necrosis Skin Medical History: Denies Hx Eczema, Denies Hx Psoriasis Psychiatric Medical History: Denies: Hx Depression Infectious Medical History: Denies: Hx Hepatitis Past Surgical History: Reports: Hx Appendectomy, Hx Vascular Surgery - L port placement, Other - Port placement - Immunizations Immunizations up to date: Yes Hx Diphtheria, Pertussis, Tetanus Vaccination: Yes Hx Pneumococcal Vaccination: 02/20/11 Review of Systems - Review of Systems Constitutional: See HPI EENT: No symptoms reported Cardiovascular: No symptoms reported Respiratory: No symptoms reported Gastrointestinal: No symptoms reported Genitourinary: No symptoms reported Male Genitourinary: No symptoms reported Musculoskeletal: See HPI Skin: No symptoms reported Hematologic/Lymphatic: No symptoms reported Neurological/Psychological: No symptoms reported Physical Exam - Vital signs Vitals: Temp Pulse Resp BP Pulse Ox 97.7 F 58 L 14 123/75 97 08/13/18 03:23 08/13/18 03:23 08/13/18 03:23 08/13/18 03:23 08/13/18 03:23 - Notes Notes: GENERAL: Alert, interacts well. No acute distress. HEAD: Normocephalic, atraumatic. EYES: Pupils equal, round, and reactive to light. Extraocular movements intact. ENT: Oral mucosa moist, tongue midline. Oropharynx unremarkable. Airway patent. NECK: Full range of motion. Supple. Trachea midline. LUNGS: Clear to auscultation bilaterally, no wheezes, rales, or rhonchi. No respiratory distress. HEART: Regular rate and rhythm. No murmur ABDOMEN: Soft, non-tender. Non-distended. Bowel sounds present in all 4 quadrants. GENITOURINARY: Deferred EXTREMITIES: Moves all 4 extremities spontaneously. No edema, normal radial and dorsalis pedis pulses bilaterally. No cyanosis. BACK: no cervical, thoracic, lumbar midline tenderness. No saddle anesthesia, normal distal neurovascular exam. NEUROLOGICAL: Alert and oriented x3. Normal speech. [cranial nerves II through XII grossly intact]. PSYCH: Normal affect, normal mood. SKIN: Warm, dry, normal turgor. No rashes or lesions noted. Course - Re-evaluation Re-evalutation: Patient is well-appearing on exam. Vital signs are unremarkable. No hypoxia, tachypnea, or tachycardia. No fever. Physical examination is benign. Patient medicated, CBC, chemistry, leukocytes checked again. I do not feel there is need for chest x-ray or EKG because he does not complain of chest pain or shortness of breath. CBC without significant change, reticulocytes actually lower than before, indirect bilirubin is only slightly elevated compared to prior. No significant change. Reevaluate patient, he states he actually feels much better after his medications and he is planning on going home. He states that he would appreciate 1 more dose of medications and after that he was requesting to be discharged to follow-up with his senior hadoop developer. I discussed his work-up, follow- up instructions, and return for options in detail. Patient states understanding and agreement with plan. - Vital Signs Vital signs: Temp Pulse Resp BP Pulse Ox 97.7 F 58 L 14 118/70 100 08/13/18 03:23 08/13/18 03:23 08/13/18 03:23 08/13/18 07:03 08/13/18 07:03 - Laboratory Result Diagrams: 08/13/18 03:55 08/13/18 03:55 Laboratory results interpreted by me: 08/13/18 08/13/18 03:55 03:55 RBC 2.59 L Hgb 9.1 L Hct 25.7 L MCV 99 H MCH 35.0 H RDW 22.9 H Retic Count (auto) 6.52 H Absolute Retic 0.169 H Total Bilirubin 2.7 H Discharge - Discharge Clinical Impression: Sickle cell pain crisis Condition: Stable Disposition: HOME, SELF-CARE Additional Instructions: Follow-up closely with your senior hadoop developer. Return if you worsen including severe worsening pain, vomiting, difficulty breathing, fever, or any other concerning symptoms. Referrals: BETH STAPLETON MD [Primary Care Provider] - Follow up as needed
[2018-08-13 04:14] LABS: ABSOLUTE RETICS # 0.169 10^6/uL (0.028-0.122); HEMATOCRIT 25.7 % (37.9-51.0); HEMOGLOBIN 9.1 g/dL (13.5-17.0); MEAN CORPUSCULAR HGB CONC 35.3 g/dL (32.0-36.0); MEAN CORPUSCULAR VOLUME 99 fl (80-97); PLATELET COUNT 169 10^3/uL (150-450); RED BLOOD COUNT 2.59 10^6/uL (4.35-5.55); RED CELL DISTRIBUTION WIDTH 22.9 % (11.5-14.0); RETICULOCYTE COUNT (AUTO) 6.52 % (0.66-2.85); WHITE BLOOD COUNT 7.2 10^3/uL (4.0-10.5)
[2018-08-13 04:35] LABS: ABSOLUTE LYMPHOCYTES# (MANUAL) 2.4 10^3/uL (0.5-4.7); ABSOLUTE MONOCYTES # (MANUAL) 0.4 10^3/uL (0.1-1.4); ABSOLUTE NEUTROPHILS# (MANUAL) 4.4 10^3/uL (1.7-8.2); BASOPHILS % (MANUAL) 0 % (0-2); EOSINOPHILS % (MANUAL) 1 % (0-6); LYMPHOCYTES % (MANUAL) 33 % (13-45); MONOCYTES % (MANUAL) 5 % (3-13); NUCLEATED RED BLOOD CELLS 4 /100 WBC (0); SEGMENTED NEUTROPHILS % (MAN) 61 % (42-78); TOTAL CELLS COUNTED 100
[2018-08-13 04:36] LABS: POLYCHROMASIA 2+
[2018-08-13 04:37] LABS: ALANINE AMINOTRANSFERASE 34 U/L (21-72); ALKALINE PHOSPHATASE 66 U/L (38-126); ANISOCYTOSIS 3+; ASPARTATE AMINO TRANSFERASE 46 U/L (17-59); BILIRUBIN,DIRECT 0.1 mg/dL (0.0-0.4); BILIRUBIN,TOTAL 2.7 mg/dL (0.2-1.3); BLOOD UREA NITROGEN 13 mg/dL (7-20); CALCIUM 8.8 mg/dL (8.4-10.2); CHLORIDE 104 mmol/L (98-107); GLUCOSE 91 mg/dL (75-110); PLATELET COMMENT ADEQUATE; POIKILOCYTOSIS 3+; POTASSIUM 3.8 mmol/L (3.6-5.0); SICKLE RED CELLS 2+; TARGET CELLS SLIGHT; TEAR DROP CELLS SLIGHT; TOTAL PROTEIN 7.8 g/dL (6.3-8.2)
[2018-08-13 04:43] LABS: ANION GAP 7 (5-19); CARBON DIOXIDE 28 mmol/L (22-30); SODIUM 139.2 mmol/L (137-145)
[2018-08-13 07:24] VITALS: BP 118/70
== END 2018-08-13 08:40 | disposition home or self-care (01) ==
LOC: ER 03:14
DX: D57.00 Hb-SS disease with crisis, unspecified (principal); M79.10 Myalgia, unspecified site; Z91.040 Latex allergy status; Z88.6 Allergy status to analgesic agent; Z88.0 Allergy status to penicillin
CPT/HCPCS: 36591; 96376; 99284; 96374; 96375; 36415; 85025; 85045; 80053; J1200; J1170

== ENCOUNTER 2018-08-20 13:03 | Outpatient (CLI) | payer MEDICARE, MEDICAID ==
[2018-08-20] MEDS ORDERED: DIPHENHYDRAMINE HCL 25 MG in NORMAL SALINE 50 ML IV PRN (13:09)
[2018-08-20] MEDS ORDERED: HYDROMORPHONE HCL INJ/PF 2 MG/ML AMPULE IV PRN (13:10)
[2018-08-20] MEDS ORDERED: NORMAL SALINE 1000 ML 1,000 ML IV PRN (13:10)
[2018-08-20 13:30] VITALS: BP 123/74
== END 2018-08-20 15:35 | disposition home or self-care (01) ==
LOC: II 13:03 → 5TH 13:05 → II 15:35
PROVIDERS: ATTEND Internal Medicine
PROC: 3E043GC Introduction of Other Therapeutic Substance into Central Vein, Percutaneous Approach (ICD-10-PCS; principal; 2018-08-20)
PROC: 3E0437Z Introduction of Electrolytic and Water Balance Substance into Central Vein, Percutaneous Approach (ICD-10-PCS; 2018-08-20)
DX: D57.1 Sickle-cell disease without crisis (principal); E86.0 Dehydration; R52 Pain, unspecified
CPT/HCPCS: 96365; 96374; 96360; J1200; J1170; 96361; 96375; J1642

== ENCOUNTER 2018-08-21 12:56 | Outpatient (CLI) | payer MEDICARE, MEDICAID ==
[2018-08-21] MEDS ORDERED: HYDROMORPHONE HCL INJ/PF 2 MG/ML AMPULE IV PRN (13:13)
[2018-08-21] MEDS ORDERED: NORMAL SALINE 1000 ML 1,000 ML IV PRN (13:14)
[2018-08-21] MEDS ORDERED: DIPHENHYDRAMINE HCL 25 MG in NORMAL SALINE 50 ML IV PRN (13:15)
[2018-08-21 13:26] VITALS: BP 117/62
== END 2018-08-21 14:56 | disposition home or self-care (01) ==
LOC: II 12:56 → 5TH 12:58 → II 14:56
PROVIDERS: ATTEND Internal Medicine
PROC: 3E043GC Introduction of Other Therapeutic Substance into Central Vein, Percutaneous Approach (ICD-10-PCS; principal; 2018-08-21)
PROC: 3E0437Z Introduction of Electrolytic and Water Balance Substance into Central Vein, Percutaneous Approach (ICD-10-PCS; 2018-08-21)
DX: D57.1 Sickle-cell disease without crisis (principal); E86.0 Dehydration; R52 Pain, unspecified
CPT/HCPCS: 96367; 96375; 96360; 96361; J1200; J1170; J1642; 96365

== ENCOUNTER 2018-08-22 13:26 | Outpatient (CLI) | payer MEDICARE, MEDICAID ==
[2018-08-22 13:56] VITALS: BP 126/83
[2018-08-22] MEDS ORDERED: HYDROMORPHONE HCL INJ/PF 2 MG/ML AMPULE ONE (14:06)
== END 2018-08-22 15:18 | disposition home or self-care (01) ==
LOC: II 13:26 → 5TH 14:20 → II 15:18
PROVIDERS: ATTEND Internal Medicine
PROC: 3E043GC Introduction of Other Therapeutic Substance into Central Vein, Percutaneous Approach (ICD-10-PCS; principal; 2018-08-22)
PROC: 3E0437Z Introduction of Electrolytic and Water Balance Substance into Central Vein, Percutaneous Approach (ICD-10-PCS; 2018-08-22)
DX: D57.1 Sickle-cell disease without crisis (principal); R52 Pain, unspecified; E86.0 Dehydration
CPT/HCPCS: 96365; 96375; 96361; J1200; J1170; J1642; 96360; 96374

== ENCOUNTER 2018-08-25 10:50 | Outpatient (CLI) | payer MEDICARE, MEDICAID ==
[2018-08-25] MEDS ORDERED: NORMAL SALINE 1000 ML 1,000 ML IV PRN (11:07)
[2018-08-25] MEDS ORDERED: DIPHENHYDRAMINE HCL 25 MG in NORMAL SALINE 50 ML IV PRN (11:07)
[2018-08-25] MEDS ORDERED: HYDROMORPHONE HCL INJ/PF 2 MG/ML AMPULE IV PRN (11:08)
[2018-08-25 12:10] VITALS: BP 125/72
== END 2018-08-25 13:40 | disposition home or self-care (01) ==
LOC: II 10:50 → 5TH 10:55 → 2N 10:55 → II 13:40
PROVIDERS: ATTEND Internal Medicine
PROC: 3E0337Z Introduction of Electrolytic and Water Balance Substance into Peripheral Vein, Percutaneous Approach (ICD-10-PCS; principal; 2018-08-25)
PROC: 3E033GC Introduction of Other Therapeutic Substance into Peripheral Vein, Percutaneous Approach (ICD-10-PCS; 2018-08-25)
DX: D57.1 Sickle-cell disease without crisis (principal); E86.0 Dehydration; R52 Pain, unspecified
CPT/HCPCS: 96365; 96375; 96361; J1200; J1170; J7030

== ENCOUNTER 2018-08-27 11:50 | Outpatient (CLI) | payer MEDICARE, MEDICAID ==
[~2018-08-27 11:50] MED LIST changes: +DIPHENHYDRAMINE HCL 25 MG in NORMAL SALINE 50 ML INJ PRN; -DIPHENHYDRAMINE HCL 25 MG in NORMAL SALINE 50 ML IV PRN
[2018-08-27 12:05] VITALS: BP 132/70
== END 2018-08-27 13:51 | disposition home or self-care (01) ==
LOC: II 11:50 → 5TH 11:59 → II 13:51
PROVIDERS: ATTEND Internal Medicine
PROC: 3E043GC Introduction of Other Therapeutic Substance into Central Vein, Percutaneous Approach (ICD-10-PCS; principal; 2018-08-27)
PROC: 3E0437Z Introduction of Electrolytic and Water Balance Substance into Central Vein, Percutaneous Approach (ICD-10-PCS; 2018-08-27)
DX: D57.1 Sickle-cell disease without crisis (principal); E86.0 Dehydration; R52 Pain, unspecified
CPT/HCPCS: 96365; 96374; 96360; J1200; J1170; J1642; 96361; 96375

== ENCOUNTER 2018-08-29 10:33 | Outpatient (CLI) | payer MEDICARE, MEDICAID ==
[~2018-08-29 10:33] MED LIST changes: -DIPHENHYDRAMINE HCL 25 MG in NORMAL SALINE 50 ML INJ PRN; +DIPHENHYDRAMINE HCL 25 MG in NORMAL SALINE 50 ML IV PRN
[2018-08-29 10:59] VITALS: BP 123/61
== END 2018-08-29 12:23 | disposition home or self-care (01) ==
LOC: II 10:33 → 5TH 10:36 → II 12:23
PROVIDERS: ATTEND Internal Medicine
PROC: 3E043GC Introduction of Other Therapeutic Substance into Central Vein, Percutaneous Approach (ICD-10-PCS; principal; 2018-08-29)
PROC: 3E0437Z Introduction of Electrolytic and Water Balance Substance into Central Vein, Percutaneous Approach (ICD-10-PCS; 2018-08-29)
DX: D57.1 Sickle-cell disease without crisis (principal); E86.0 Dehydration; R52 Pain, unspecified
CPT/HCPCS: 96367; 96374; 96360; J1200; J1170; J1642; 96361; 96365; 96375

== ENCOUNTER 2018-08-31 03:13 | Emergency (ER) | payer MEDICARE, MEDICAID ==
[2018-08-31] MEDS ORDERED: GABAPENTIN 100 MG CAPSULE PO ONE (03:40)
[2018-08-31] MEDS ORDERED: NORMAL SALINE 1000 ML 1,000 ML IV ONE ×2 (03:40→05:19)
[2018-08-31] MEDS ORDERED: HYDROMORPHONE HCL INJ/PF 2 MG/ML AMPULE IV ONE ×3 (03:40→05:19)
[2018-08-31] MEDS ORDERED: DIPHENHYDRAMINE HCL 50 MG/ML VIAL IV ONE ×2 (04:07→05:19)
[2018-08-31 04:19] LABS: ABSOLUTE RETICS # 0.188 10^6/uL (0.028-0.122); HEMOGLOBIN 9.8 g/dL (13.5-17.0); MEAN CORPUSCULAR HEMOGLOBIN 33.9 pg (27.0-33.4); MEAN CORPUSCULAR HGB CONC 33.9 g/dL (32.0-36.0); MEAN CORPUSCULAR VOLUME 100 fl (80-97); PLATELET COUNT 491 10^3/uL (150-450); RED CELL DISTRIBUTION WIDTH 20.4 % (11.5-14.0); RETICULOCYTE COUNT (AUTO) 6.49 % (0.66-2.85); WHITE BLOOD COUNT 4.7 10^3/uL (4.0-10.5)
[2018-08-31 04:28] LABS: ABSOLUTE LYMPHOCYTES# (MANUAL) 1.8 10^3/uL (0.5-4.7); ABSOLUTE MONOCYTES # (MANUAL) 0.4 10^3/uL (0.1-1.4); ABSOLUTE NEUTROPHILS# (MANUAL) 2.3 10^3/uL (1.7-8.2); BASOPHILS % (MANUAL) 3 % (0-2); EOSINOPHILS % (MANUAL) 2 % (0-6); LYMPHOCYTES % (MANUAL) 39 % (13-45); MONOCYTES % (MANUAL) 8 % (3-13); NUCLEATED RED BLOOD CELLS 1 /100 WBC (0); SEGMENTED NEUTROPHILS % (MAN) 48 % (42-78); TOTAL CELLS COUNTED 100
[2018-08-31 04:29] LABS: PLATELET COMMENT INCREASED
[2018-08-31 04:30] LABS: ALANINE AMINOTRANSFERASE 33 U/L (21-72); ALBUMIN 4.1 g/dL (3.5-5.0); ALKALINE PHOSPHATASE 82 U/L (38-126); ANION GAP 8 (5-19); ANISOCYTOSIS 2+; ASPARTATE AMINO TRANSFERASE 38 U/L (17-59); BILIRUBIN,DIRECT 0.2 mg/dL (0.0-0.4); BILIRUBIN,TOTAL 1.7 mg/dL (0.2-1.3); BLOOD UREA NITROGEN 8 mg/dL (7-20); CALCIUM 8.8 mg/dL (8.4-10.2); CARBON DIOXIDE 27 mmol/L (22-30); CHLORIDE 106 mmol/L (98-107); GLUCOSE 93 mg/dL (75-110); PLATELET GIANT PRESENT; POLYCHROMASIA 1+; POTASSIUM 3.7 mmol/L (3.6-5.0); SCHISTOCYTES SLIGHT; SICKLE RED CELLS 3+; SODIUM 141.3 mmol/L (137-145); TARGET CELLS 2+
--- NOTE | 2018-08-31 06:05 | ER Document Report ---
Entered by FLORES ALCANTAR SCRIBE 08/31/18 [id number] Acting as scribe for:JOHN RAMIREZ DO ED General Pain - General Chief Complaint: Sickle Cell Crisis Stated Complaint: PAIN IN FEET/SICKLE CELL Time Seen by Provider: 08/31/18 03:27 Primary Care Provider: BETH MEDELLIN MD [Primary Care Provider] - Follow up as needed Information source: Patient Notes: 37-year-old male with sickle cell disease that presents to the emergency department today with multiple painful complaints. Patient mentions bilateral foot pain for the last x30 days, generalized joint pain for the last x4 days, mild diffuse abdominal pain for the last x4 days, and bilateral knee swelling for the last x1-2 weeks. 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 Patient describes this pain in his feet as a stabbing sensation. Patient states that he has been seen by his toxics program officer over the last month for generalized pain but has never "mentioned specifically the foot pain". Patient states he is usually given fluids which seem to relieve his symptoms somewhat for a brief period of time but he notices that he usually develops pain again while sleeping the same night. Patient states he has used oxycodone and ibuprofen at home with some relief. Patient states he does not have trouble breathing at rest but has noticed some shortness of breath with exertion. Patient denies any fevers, nausea, vomiting, or diarrhea. Radiology Asst: Vignesh TRAVEL OUTSIDE OF THE [place] IN LAST 30 DAYS: No - Related Data Allergies/Adverse Reactions: famotidine [From Pepcid] Allergy (Severe, Verified 07/13/18 03:47) Anaphylaxis ketorolac tromethamine [From Toradol] Allergy (Severe, Verified 07/13/18 03:47) levofloxacin [From Levaquin] Allergy (Severe, Verified 07/13/18 03:47) meperidine HCl [From Demerol] Allergy (Severe, Verified 07/13/18 03:47) morphine [Morphine] Allergy (Severe, Verified 07/13/18 03:47) tramadol HCl [From Ultram] Allergy (Severe, Verified 07/13/18 03:47) amoxicillin [Amoxicillin] Allergy (Verified 07/13/18 03:47) fentanyl [Fentanyl] Allergy (Verified 07/13/18 03:47) latex [Latex] Allergy (Verified 07/13/18 03:47) ondansetron HCl [From Zofran] Allergy (Verified 07/13/18 03:47) Pork/Porcine Containing Products Allergy (Verified 07/13/18 03:47) Past Medical History - General Information source: Patient, [facility] - Social History Smoking Status: Never Smoker Cigarette use (# per day): No Chew tobacco use (# tins/day): No Frequency of alcohol use: None Drug Abuse: None Occupation: [employer] Lives with: Family Family History: Reviewed & Not Pertinent, Other - Sickle cell disease - Past Medical History Cardiac Medical History: Reports: Other - Avascular necrosis of left hip Pulmonary Medical History: Reports: Hx Pneumonia Neurological Medical History: Reports: Hx Seizures Musculoskeletal Medical History: Reports Hx Musculoskeletal Deformity - right hip avascular necrosis Psychiatric Medical History: Reports: Hx Depression Past Surgical History: Reports: Hx Appendectomy, Hx Vascular Surgery - L port placement, Other - Port placement - Immunizations Immunizations up to date: Yes Hx Diphtheria, Pertussis, Tetanus Vaccination: Yes Hx Pneumococcal Vaccination: 02/20/11 Review of Systems - Review of Systems Constitutional: denies: Fever EENT: See HPI, Nose congestion Cardiovascular: No symptoms reported Respiratory: See HPI, Short of breath Gastrointestinal: See HPI, Abdominal pain. denies: Diarrhea, Nausea, Vomiting Genitourinary: No symptoms reported Male Genitourinary: No symptoms reported Musculoskeletal: See HPI, Joint pain, Joint swelling, Muscle pain, Ankle swelling Skin: No symptoms reported Hematologic/Lymphatic: No symptoms reported Neurological/Psychological: See HPI, Headaches -: Yes All other systems reviewed and negative Physical Exam - Vital signs Vitals: Temp Pulse Resp BP Pulse Ox 98.3 F 67 16 137/91 H 96 08/31/18 03:18 08/31/18 03:18 08/31/18 03:18 08/31/18 03:18 08/31/18 03:18 - Notes Notes: PHYSICAL EXAM GENERAL: Alert, interacts well. No acute distress. HEAD: Normocephalic, atraumatic. EYES: Pupils equal, round, and reactive to light. Extraocular movements intact. ENT: Oral mucosa moist, tongue midline. NECK: Full range of motion. Supple. Trachea midline. LUNGS: Clear to auscultation bilaterally, no wheezes, rales, or rhonchi. No respiratory distress. HEART: Regular rate and rhythm. No murmurs, gallops, or rubs. ABDOMEN: Soft, non-tender. Non-distended. Bowel sounds present in all 4 qu adrants. No guarding, rigidity, or rebound. EXTREMITIES: Moves all 4 extremities spontaneously. No edema, radial and dorsalis pedis pulses 2/4 bilaterally. No cyanosis. Mild generalized tenderness to palpation of knees bilaterally without swelling or erythema, no joint effusion. No ligamentous laxity in the knees. Negative anterior and posterior drawer test. Mild right lateral foot tenderness with palpation without erythema or swelling. NEUROLOGICAL: Alert and oriented x3. Normal speech. Normal sensation. PSYCH: Normal affect, normal mood. SKIN: Warm, dry, normal turgor. No rashes or lesions noted. Course - Re-evaluation Re-evalutation: 08/31/18 05:58 CBC shows anemia with a hemoglobin of 9.8, 12 days ago it was 8.7. Patient has not had a blood transfusion. Platelets elevated at 491, no leukocytosis, absolute reticulocyte count appropriately elevated at 0.188, CMP grossly unremarkable with the exception of elevated total bilirubin at 1.7. 08/31/18 05:59 Patient is in a sickle cell crisis, treated with narcotic pain medication and fluids as well as oxygen, pain has improved. Patient's description of his chron ic month-long sharp stabbing pain that is intermittent in his feet is actually rather consistent with neuropathy likely caused by his sickle cell anemia with recurrent crises. Encouraged patient to drink plenty of fluids, continue to follow-up with his toxics program officer and he was started on Neurontin. Discharged home. - Vital Signs Vital signs: Temp Pulse Resp BP Pulse Ox 98.3 F 67 16 137/91 H 100 08/31/18 03:18 08/31/18 03:18 08/31/18 03:18 08/31/18 03:18 08/31/18 05:00 - Laboratory Result Diagrams: 08/31/18 04:00 08/31/18 04:00 Laboratory results interpreted by me: 08/31/18 08/31/18 04:00 04:00 RBC 2.90 L Hgb 9.8 L Hct 29.0 L MCV 100 H MCH 33.9 H RDW 20.4 H Plt Count 491 H Basophils % (Manual) 3 H Retic Count (auto) 6.49 H Absolute Retic 0.188 H Total Bilirubin 1.7 H Discharge - Discharge Clinical Impression: Sickle cell crisis, Neuropathy Sickle cell anemia Qualifiers: Sickle-cell associated disorders: with unspecified crisis Qualified Code(s): D57.00 - Hb-SS disease with crisis, unspecified; D57.0 - Hb-SS disease with crisis Condition: Stable Disposition: HOME, SELF-CARE Additional Instructions: I think the intermittent sharp stabbing pain that you are having in your feet is likely related to nerve damage from your sickle cell crisis. I have prescribed you Neurontin to help with this pain. Please take 100 mg once a day for the next week, after that if you are having pain you may increase it twice a day. After that if you are continued to have pain please discuss this with Dr. Medellin or your your primary care physician. As previously mentioned is very im portant that you perform foot exams twice a day if you have nerve damage to your feet. Prescriptions: Gabapentin [Neurontin 100 mg Capsule] 100 mg PO ASDIR #60 capsule Referrals: BETH MEDELLIN MD [Primary Care Provider] - Follow up as needed I personally performed the services described in the documentation, reviewed and edited the documentation which was dictated to the scribe in my presence, and it accurately records my words and actions.
[2018-08-31 07:02] VITALS: BP 140/82
== END 2018-08-31 07:02 | disposition home or self-care (01) ==
LOC: ER 03:13
DX: D57.00 Hb-SS disease with crisis, unspecified (principal); G62.9 Polyneuropathy, unspecified; R10.84 Generalized abdominal pain; M79.671 Pain in right foot; M79.672 Pain in left foot; M25.50 Pain in unspecified joint; M25.473 Effusion, unspecified ankle; Z88.8 Allergy status to other drugs, medicaments and biological substances; Z88.1 Allergy status to other antibiotic agents
CPT/HCPCS: 36591; 96376; 99284; 96361; 96374; 96375; 36415; 85025; 85045; 80053; J1200; J1170; J7030; A9270; J1642

== ENCOUNTER 2018-09-01 04:21 | Emergency (ER) | payer MEDICARE, MEDICAID ==
[2018-09-01] MEDS ORDERED: DIPHENHYDRAMINE HCL 50 MG/ML VIAL IV ONE ×2 (04:57→07:12)
[2018-09-01] MEDS ORDERED: HYDROMORPHONE HCL INJ/PF 2 MG/ML AMPULE IV ONE ×3 (04:57→07:12)
[2018-09-01] MEDS ORDERED: TERBUTALINE SULFATE INJ/PF 1 MG/1 ML SDV SUBCUT ONE (05:17)
--- NOTE | 2018-09-01 05:22 | ER Document Report ---
ED General - General Chief Complaint: Sickle Cell Crisis Stated Complaint: BODY ACHE Time Seen by Provider: 09/01/18 04:39 Primary Care Provider: BETH MEDELLIN MD [Primary Care Provider] - Follow up as needed Mode of Arrival: Ambulatory Information source: Patient TRAVEL OUTSIDE OF THE [place] IN LAST 30 DAYS: No - HPI Notes: Patient is a 37-year-old male who presents to the emergency department for sickle cell crisis. Patient states that he woke up around midnight with priapism. States that it has improved but still present and reports that he is partially erect. Patient states that he has joint pain all over as well as muscle pain all over. Patient reports that he does have some shortness of breath with ambulation. Patient does deny fever, denies chest pain. Patient states that he is having pain to the bottom of his right foot. Patient states this started 1 month ago. Patient was placed on Neurontin yesterday and reports he has taken his doses. Patient states that the prior prism and the right foot pain is what will come up tonight. 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 - Related Data Allergies/Adverse Reactions: famotidine [From Pepcid] Allergy (Severe, Verified 09/01/18 07:01) Anaphylaxis ketorolac tromethamine [From Toradol] Allergy (Severe, Verified 09/01/18 07:01) levofloxacin [From Levaquin] Allergy (Severe, Verified 09/01/18 07:01) meperidine HCl [From Demerol] Allergy (Severe, Verified 09/01/18 07:01) morphine [Morphine] Allergy (Severe, Verified 09/01/18 07:01) tramadol HCl [From Ultram] Allergy (Severe, Verified 09/01/18 07:01) amoxicillin [Amoxicillin] Allergy (Verified 09/01/18 07:01) fentanyl [Fentanyl] Allergy (Verified 09/01/18 07:01) latex [Latex] Allergy (Verified 09/01/18 07:01) ondansetron HCl [From Zofran] Allergy (Verified 09/01/18 07:01) Pork/Porcine Containing Products Allergy (Verified 07/13/18 03:47) Past Medical History - General Information source: Patient - Social History Smoking Status: Unknown if Ever Smoked Lives with: Alone Family History: Reviewed & Not Pertinent, Other - Sickle cell disease - Past Medical History Cardiac Medical History: Reports: None Denies: Hx Atrial Fibrillation, Hx Congestive Heart Failure, Hx Coronary Artery Disease Pulmonary Medical History: Reports: Hx Pneumonia Denies: Hx Asthma, Hx Bronchitis, Hx COPD, Hx Tuberculosis EENT Medical History: Reports: None Neurological Medical History: Reports: Hx Seizures. Denies: Hx Migraine Endocrine Medical History: Reports: None. Denies: Hx Diabetes Mellitus Type 1, Hx Diabetes Mellitus Type 2 Renal/ Medical History: Reports: None. Denies: Hx Peritoneal Dialysis Malignancy Medical History: Reports None GI Medical History: Reports: None. Denies: Hx Cirrhosis, Hx Hepatitis Musculoskeletal Medical History: Denies Hx Arthritis, Denies Hx Gout, Reports Hx Musculoskeletal Deformity - right hip avascular necrosis Skin Medical History: Reports None, Denies Hx Eczema, Denies Hx Psoriasis Psychiatric Medical History: Reports: Hx Depression Traumatic Medical History: Reports: None Infectious Medical History: Reports: None. Denies: Hx Hepatitis Past Surgical History: Reports: Hx Appendectomy, Hx Vascular Surgery - L port placement, Other - Port placement - Immunizations Immunizations up to date: Yes Hx Diphtheria, Pertussis, Tetanus Vaccination: Yes Hx Pneumococcal Vaccination: 02/20/11 Review of Systems - Review of Systems Constitutional: No symptoms reported EENT: No symptoms reported Cardiovascular: No symptoms reported Respiratory: See HPI Gastrointestinal: No symptoms reported Genitourinary: No symptoms reported Male Genitourinary: See HPI Musculoskeletal: See HPI Skin: No symptoms reported Hematologic/Lymphatic: No symptoms reported Neurological/Psychological: No symptoms reported Physical Exam - Vital signs Vitals: Temp Pulse Resp BP Pulse Ox 97.9 F 66 16 138/86 H 98 09/01/18 04:25 09/01/18 04:25 09/01/18 04:25 09/01/18 04:25 09/01/18 04:25 Interpretation: Normal - Notes Notes: GENERAL: Well-appearing, well-nourished and in no acute distress. HEAD: Atraumatic, normocephalic. EYES: Pupils equal round and reactive to light, extraocular movements intact, sclera anicteric, conjunctiva are normal. ENT: Nares patent, oropharynx clear without exudates. Moist mucous membranes. NECK: Normal range of motion, supple without lymphadenopathy or JVD. LUNGS: Breath sounds clear to auscultation bilaterally and equal. No wheezes rales or rhonchi. HEART: Regular rate and rhythm without murmurs, rubs or gallops. ABDOMEN: Soft, nontender, normoactive bowel sounds. No guarding, no rebound. No masses appreciated. EXTREMITIES: Normal range of motion, no pitting or edema. No clubbing or cyanosis. NEUROLOGICAL: Cranial nerves II through XII grossly intact. Normal speech, normal gait. PSYCH: Normal mood, normal affect. SKIN: Warm, Dry, normal turgor, no rashes or lesions noted. : Penis semi-erect. Course - Re-evaluation Re-evalutation: 09/01/18 Patient states that he woke up around midnight with severe priapism. Patient reports that it is better but still present. With Jerry Ovalle PA-C at bedside we evaluated his report of a partial priaprism and the patient's penis was found to be semi-erect - patient verifies this. Dr. Rowe consulted and a dose of Terbutaline ordered, will re-evaluate patient. Patient currently denies chest pain or shortness of breath. Patient is resting comfortably on stretcher, patient is not tachycardic, tachypneic, or hypoxic at this time. We will access his Port-A-Cath and administer medication for pain control. Appropriate labs previously ordered by . 09/01/18 06:26 Reevaluated priapism, it was noted that it has significantly improved. Patient reports that she is at his baseline. Patient continues to complain of 4 out of 5 generalized body aches and right foot pain. Will administer additional dose of pain medication. 09/01/18 07:09 Room patient is sitting upright texting on cell phone and in no acute distress. He reports that his priapism is gone. Patient states that his pain level has significantly improved since receiving multiple doses of pain medication. Patient states he is going to follow up with Dr. Medellin this morning in regards to his new Neurontin prescription he was given over the weekend for his nerve pain. Patient feels comfortable getting another dose of pain medication and being discharged. Continues to deny chest pain or shortness of breath. Patient sitting upright on stretcher, no nontoxic appearing. - Vital Signs Vital signs: Temp Pulse Resp BP Pulse Ox 97.9 F 84 16 131/65 H 95 09/01/18 04:25 09/01/18 06:38 09/01/18 06:38 09/01/18 06:38 09/01/18 06:38 - Laboratory Result Diagrams: 09/01/18 05:25 09/01/18 05:25 Laboratory results interpreted by me: 09/01/18 09/01/18 05:25 05:25 RBC 2.64 L Hgb 9.1 L Hct 26.6 L MCV 101 H MCH 34.6 H RDW 19.7 H Seg Neuts % (Manual) 31 L Lymphocytes % (Manual) 53 H Abs Neuts (Manual) 1.4 L Retic Count (auto) 5.72 H Absolute Retic 0.151 H Chloride 108 H Total Bilirubin 1.8 H Patient's retic count is slightly elevated at 5.72. This has improved since his visit 24 hours ago. Patient also has a slightly elevated total bilirubin at 1.8 which is consistent with his previous visit. Discharge - Discharge Clinical Impression: Sickle cell crisis Condition: Stable Disposition: HOME, SELF-CARE Additional Instructions: You were seen in the emergency department for sickle cell crisis. You have received multiple doses of pain medication which did improve your overall discomfort. Please follow up with Dr. Medellin for further management of your pain. Continue your pain medication regimen as previously prescribed. Return to the emergency department for any worsening symptoms to include chest pain, fever, shortness of breath, swelling to the calf or lower extremities, chest palpitations, or any other concerning signs or symptoms. Sickle Cell Crisis You have "sickle cell crisis." Sickle cell disease is caused by abnormal hemoglobin. This hemoglobin can deform red blood cells into a sickle shape. These abnormal blood cells can block blood vessels. This causes the pain of sickle cell crisis. Sickle cell crisis can occur any time. But attacks are more likely with acute infection, dehydration, or altitude change. A crisis usually causes pain in the legs, back, abdomen, and chest. Sometimes the pain may ease and return later. The usual treatment is oxygen, pain medication, IV fluids, and treatment of infection. Attacks may take a couple of days to resolve. Return if the pain becomes more severe, or if there are new symptoms. Referrals: BETH MEDELLIN MD [Primary Care Provider] - Follow up as needed
[2018-09-01 05:58] LABS: ABSOLUTE RETICS # 0.151 10^6/uL (0.028-0.122); HEMATOCRIT 26.6 % (37.9-51.0); HEMOGLOBIN 9.1 g/dL (13.5-17.0); MEAN CORPUSCULAR HEMOGLOBIN 34.6 pg (27.0-33.4); MEAN CORPUSCULAR HGB CONC 34.3 g/dL (32.0-36.0); MEAN CORPUSCULAR VOLUME 101 fl (80-97); PLATELET COUNT 426 10^3/uL (150-450); RED BLOOD COUNT 2.64 10^6/uL (4.35-5.55); RED CELL DISTRIBUTION WIDTH 19.7 % (11.5-14.0); RETICULOCYTE COUNT (AUTO) 5.72 % (0.66-2.85); WHITE BLOOD COUNT 4.5 10^3/uL (4.0-10.5)
[2018-09-01 06:08] LABS: ABSOLUTE LYMPHOCYTES# (MANUAL) 2.4 10^3/uL (0.5-4.7); ABSOLUTE MONOCYTES # (MANUAL) 0.5 10^3/uL (0.1-1.4); ABSOLUTE NEUTROPHILS# (MANUAL) 1.4 10^3/uL (1.7-8.2); BASOPHILS % (MANUAL) 2 % (0-2); EOSINOPHILS % (MANUAL) 4 % (0-6); LYMPHOCYTES % (MANUAL) 53 % (13-45); MONOCYTES % (MANUAL) 10 % (3-13); NUCLEATED RED BLOOD CELLS 1 /100 WBC (0); PLATELET COMMENT ADEQUATE; SEGMENTED NEUTROPHILS % (MAN) 31 % (42-78); TOTAL CELLS COUNTED 100
[2018-09-01 06:09] LABS: ANISOCYTOSIS 2+; HOWELL-JOLLY BODIES PRESENT; POIKILOCYTOSIS 1+; POLYCHROMASIA SLIGHT; SCHISTOCYTES SLIGHT; SICKLE RED CELLS 2+; TARGET CELLS 3+
[2018-09-01 06:11] LABS: ALANINE AMINOTRANSFERASE 34 U/L (21-72); ALBUMIN 3.7 g/dL (3.5-5.0); ALKALINE PHOSPHATASE 83 U/L (38-126); ANION GAP 8 (5-19); ASPARTATE AMINO TRANSFERASE 35 U/L (17-59); BILIRUBIN,DIRECT 0.2 mg/dL (0.0-0.4); BILIRUBIN,TOTAL 1.8 mg/dL (0.2-1.3); BLOOD UREA NITROGEN 8 mg/dL (7-20); CALCIUM 8.5 mg/dL (8.4-10.2); CARBON DIOXIDE 26 mmol/L (22-30); CHLORIDE 108 mmol/L (98-107); GLUCOSE 77 mg/dL (75-110); POTASSIUM 3.8 mmol/L (3.6-5.0); SODIUM 141.5 mmol/L (137-145); TOTAL PROTEIN 7.3 g/dL (6.3-8.2)
[2018-09-01 08:30] VITALS: BP 129/78
== END 2018-09-01 09:00 | disposition home or self-care (01) ==
LOC: ER 04:21
DX: D57.00 Hb-SS disease with crisis, unspecified (principal); N48.30 Priapism, unspecified; M25.50 Pain in unspecified joint; M79.10 Myalgia, unspecified site; M79.671 Pain in right foot; Z88.8 Allergy status to other drugs, medicaments and biological substances; Z88.1 Allergy status to other antibiotic agents; Z88.5 Allergy status to narcotic agent; Z88.0 Allergy status to penicillin; Z91.018 Allergy to other foods; Z91.040 Latex allergy status
CPT/HCPCS: 36591; 96376; 99284; 96372; 96374; 96375; 36415; 85025; 85045; 80053; J1200; J1170; J3105; J1642

== ENCOUNTER 2018-09-02 02:51 | Emergency (ER) | payer MEDICARE, MEDICAID ==
[2018-09-02] MEDS ORDERED: DIPHENHYDRAMINE HCL 50 MG/ML VIAL IV ONE ×2 (04:03→06:42)
[2018-09-02] MEDS ORDERED: HYDROMORPHONE HCL INJ/PF 2 MG/ML AMPULE IV ONE ×4 (04:03→08:29)
--- NOTE | 2018-09-02 04:06 | ER Document Report ---
ED General - General TRAVEL OUTSIDE OF THE [place] IN LAST 30 DAYS: No <TIFF MICHELLE - Last Filed: 09/02/18 07:02> <JENELLE FOSTER - Last Filed: 09/02/18 20:17> - General Chief Complaint: Sickle Cell Crisis Stated Complaint: FOOT PAIN Time Seen by Provider: 09/02/18 04:03 Primary Care Provider: BETH STAPLETON MD [Primary Care Provider] - Follow up as needed Notes: Patient is a 37-year-old male with a history of sickle cell anemia that comes to the emergency department for chief complaint of right leg and foot pain along with generalized body aches. He states that he has had worsening pain and swelling over the past few days to his right leg, he denies trauma, he denies history of the same. He states he tried using a ALFREDITO stocking at home but this did not change the swelling. He denies fever or chills. He denies history of DVT. (TIFF MICHELLE) - Related Data Allergies/Adverse Reactions: famotidine [From Pepcid] Allergy (Severe, Verified 09/01/18 07:01) Anaphylaxis ketorolac tromethamine [From Toradol] Allergy (Severe, Verified 09/01/18 07:01) levofloxacin [From Levaquin] Allergy (Severe, Verified 09/01/18 07:01) meperidine HCl [From Demerol] Allergy (Severe, Verified 09/01/18 07:01) morphine [Morphine] Allergy (Severe, Verified 09/01/18 07:01) tramadol HCl [From Ultram] Allergy (Severe, Verified 09/01/18 07:01) amoxicillin [Amoxicillin] Allergy (Verified 09/01/18 07:01) fentanyl [Fentanyl] Allergy (Verified 09/01/18 07:01) latex [Latex] Allergy (Verified 09/01/18 07:01) ondansetron HCl [From Zofran] Allergy (Verified 09/01/18 07:01) Pork/Porcine Containing Products Allergy (Verified 07/13/18 03:47) Past Medical History - General Information source: Patient - Social History Smoking Status: Never Smoker Frequency of alcohol use: None Drug Abuse: None Lives with: Family Family History: Reviewed & Not Pertinent, Other - Sickle cell disease - Past Medical History Cardiac Medical History: Denies: Hx Atrial Fibrillation, Hx Congestive Heart Failure, Hx Coronary Artery Disease Pulmonary Medical History: Reports: Hx Pneumonia Denies: Hx Asthma, Hx Bronchitis, Hx COPD, Hx Tuberculosis Neurological Medical History: Reports: Hx Seizures. Denies: Hx Migraine Endocrine Medical History: Denies: Hx Diabetes Mellitus Type 1, Hx Diabetes Mellitus Type 2 Renal/ Medical History: Denies: Hx Peritoneal Dialysis GI Medical History: Denies: Hx Cirrhosis, Hx Hepatitis Musculoskeletal Medical History: Denies Hx Arthritis, Denies Hx Gout, Reports Hx Musculoskeletal Deformity - right hip avascular necrosis Skin Medical History: Denies Hx Eczema, Denies Hx Psoriasis Psychiatric Medical History: Reports: Hx Depression Infectious Medical History: Denies: Hx Hepatitis Past Surgical History: Reports: Hx Appendectomy, Hx Vascular Surgery - L port placement, Other - Port placement - Immunizations Immunizations up to date: Yes Hx Diphtheria, Pertussis, Tetanus Vaccination: Yes Hx Pneumococcal Vaccination: 02/20/11 <TIFF MICHELLE - Last Filed: 09/02/18 07:02> Review of Systems - Review of Systems Constitutional: No symptoms reported EENT: No symptoms reported Cardiovascular: No symptoms reported Respiratory: No symptoms reported Gastrointestinal: No symptoms reported Genitourinary: No symptoms reported Male Genitourinary: No symptoms reported Musculoskeletal: See HPI Skin: No symptoms reported Hematologic/Lymphatic: No symptoms reported Neurological/Psychological: No symptoms reported <TIFF MICHELLE - Last Filed: 09/02/18 07:02> Physical Exam <TIFF MICHELLE - Filed: 09/02/18 07:02> - Vital signs Vitals: Temp Pulse Resp BP Pulse Ox 98.4 F 67 16 147/83 H 95 09/02/18 02:58 09/02/18 02:58 09/02/18 02:58 09/02/18 02:58 09/02/18 02:58 - Notes Notes: GENERAL: Alert, interacts well. HEAD: Normocephalic, atraumatic. EYES: Pupils equal, round, and reactive to light. Extraocular movements intact. ENT: Oral mucosa moist, tongue midline. Oropharynx unremarkable. Airway patent. Nares patent, no nasal septal hematoma, TM's intact. NECK: Full range of motion. Supple. Trachea midline. LUNGS: Clear to auscultation bilaterally, no wheezes, rales, or rhonchi. No respiratory distress. HEART: Regular rate and rhythm. No murmur ABDOMEN: Soft, non-tender. Non-distended. Bowel sounds present in all 4 quadrants. GENITOURINARY: Deferred EXTREMITIES: Moves all 4 extremities spontaneously. Right lower extremity does have some swelling over the distal tibia and foot. Pulses and sensation intact. There is some pain with palpation of these areas. There is edema compared to the left. Unremarkable extremities otherwise. BACK: no cervical, thoracic, lumbar midline tenderness. No saddle anesthesia, normal distal neurovascular exam. NEUROLOGICAL: Alert and oriented x3. Normal speech. Cranial nerves II through XII grossly intact. PSYCH: Normal affect, normal mood. SKIN: Warm, dry, normal turgor. No rashes or lesions noted. (TIFF MICHELLE) Course - Laboratory Result Diagrams: 09/02/18 04:15 09/02/18 04:15 <TIFF MICHELLE - Last Filed: 09/02/18 07:02> - Laboratory Result Diagrams: 09/02/18 04:15 09/02/18 04:15 - Diagnostic Test Radiology reviewed: Image reviewed, Reports reviewed - Negative Doppler <JENELLE FOSTER - Last Filed: 09/02/18 20:17> - Re-evaluation Re-evalutation: Patient does not complain of chest pain or shortness of breath. No hypoxia. No tachycardia. He is well-appearing. He does report generalized body pain suggesting sickle cell crisis with pain. He does also have right lower extremity swelling. No history of DVT. Venous Doppler will be performed although he will have to wait until they come in this morning. I discussed this with patient and he states satisfaction with this plan. CBC does not show leukocytosis. Anemia at baseline. Reticulocytes without significant change from prior, chemistry shows bilirubin similar to prior but is otherwise unremarkable. (TIFF MICHELLE) 09/02/18 09:54 doppler neg. patient instructed on results, discharge (JENELLE FOSTER) - Vital Signs Vital signs: Temp Pulse Resp BP Pulse Ox 98.3 F 67 11 L 135/94 H 98 09/02/18 11:01 09/02/18 02:58 09/02/18 11:01 09/02/18 11:01 09/02/18 11:01 - Laboratory Laboratory results interpreted by me: 09/02/18 09/02/18 04:15 04:15 RBC 2.64 L Hgb 9.0 L Hct 26.4 L MCV 100 H MCH 34.3 H RDW 19.9 H Seg Neutrophils % 36.9 L Lymphocytes % 49.6 H Basophils % 2.4 H Retic Count (auto) 6.09 H Absolute Retic 0.161 H Total Bilirubin 2.0 H Discharge <TIFF MICHELLE - Last Filed: 09/02/18 07:02> <JENELLE FOSTER - Last Filed: 09/02/18 20:17> - Discharge Clinical Impression: Whole body pain, Swelling of right lower extremity Sickle cell anemia Qualifiers: Sickle-cell associated disorders: without crisis Qualified Code(s): D57.1 - Sickle-cell disease without crisis Condition: Stable Disposition: HOME, SELF-CARE Additional Instructions: The venous Doppler of the leg is negative for blood clot. Continue elevation and wearing the ALFREDITO stocking. Symptoms should improve with time. Follow-up closely with your provider for additional evaluation and management. Return if you worsen including increased swelling, worsening pain, developing redness, fever, difficulty breathing, or any other concerning symptoms. Referrals: BETH STAPLETON MD [Primary Care Provider] - Follow up as needed
[2018-09-02 04:36] LABS: ABSOLUTE RETICS # 0.161 10^6/uL (0.028-0.122); HEMATOCRIT 26.4 % (37.9-51.0); MEAN CORPUSCULAR HEMOGLOBIN 34.3 pg (27.0-33.4); MEAN CORPUSCULAR HGB CONC 34.3 g/dL (32.0-36.0); MEAN CORPUSCULAR VOLUME 100 fl (80-97); PLATELET COUNT 387 10^3/uL (150-450); RED CELL DISTRIBUTION WIDTH 19.9 % (11.5-14.0); RETICULOCYTE COUNT (AUTO) 6.09 % (0.66-2.85)
[2018-09-02 04:50] LABS: RED BLOOD COUNT 2.64 10^6/uL (4.35-5.55)
[2018-09-02 04:53] LABS: ALANINE AMINOTRANSFERASE 31 U/L (21-72); ALBUMIN 3.7 g/dL (3.5-5.0); ALKALINE PHOSPHATASE 83 U/L (38-126); ANION GAP 9 (5-19); ASPARTATE AMINO TRANSFERASE 36 U/L (17-59); BILIRUBIN,DIRECT 0.3 mg/dL (0.0-0.4); BLOOD UREA NITROGEN 7 mg/dL (7-20); CALCIUM 8.6 mg/dL (8.4-10.2); CARBON DIOXIDE 28 mmol/L (22-30); CHLORIDE 105 mmol/L (98-107); GLUCOSE 96 mg/dL (75-110); POTASSIUM 3.6 mmol/L (3.6-5.0); SODIUM 142.2 mmol/L (137-145); TOTAL PROTEIN 7.2 g/dL (6.3-8.2)
--- NOTE | 2018-09-02 10:08 | RADIOLOGY REPORT (SQ) ---
EXAM DESCRIPTION: VENOUS UNILATERAL LOWER COMPLETED DATE/TIME: 09/02/2018 9:51 am REASON FOR STUDY: right leg pain/swelling COMPARISON: None. TECHNIQUE: Dynamic and static franklin scale and color images acquired of the right leg venous system. S elected spectral images acquired with additional compression and augmentation maneuvers. The contrala teral common femoral vein and saphenofemoral junction were also imaged. Images stored on PACS. LIMITATIONS: None. FINDINGS: COMMON FEMORAL: Normal phasicity, compression and augmentation. No visualized echogenic ma terial on franklin scale. No defects on color images. FEMORAL: Normal compression and augmentation. No visualized echogenic material on franklin scale. No defe cts on color images. POPLITEAL: Normal compression, augmentation. No visualized echogenic material on franklin scale. No defec ts on color images. CALF VESSELS: Normal compression, augmentation. No visualized echogenic material on franklin scale. No de fects on color images. GSV and SSV: Normal compression, augmentation. No visualized echogenic material on franklin scale. No def ects on color images. ANY DEEP VENOUS INSUFFICIENCY: Not evaluated. ANY EVIDENCE OF POPLITEAL CYST: No. OTHER: No other significant finding. CONTRALATERAL COMMON FEMORAL VEIN AND SAPHENOFEMORAL JUNCTION: Normal phasicity, compression and augmentation. No visualized echogenic material on franklin scale. No de fects on color images. IMPRESSION: Negative examination for deep venous thrombosis in the right lower extremity. TECHNICAL DOCUMENTATION: JOB ID: [id number] [employer]- All Rights Reserved Reading location - IP/workstation name: [email or web address]
[2018-09-02 11:19] VITALS: BP 135/94
[2018-09-03 11:05] LABS: ABSOLUTE LYMPHOCYTES# (MANUAL) 1.9 10^3/uL (0.5-4.7); ABSOLUTE MONOCYTES # (MANUAL) 0.7 10^3/uL (0.1-1.4); ABSOLUTE NEUTROPHILS# (MANUAL) 2.5 10^3/uL (1.7-8.2); BASOPHILS % (MANUAL) 0 % (0-2); EOSINOPHILS % (MANUAL) 0 % (0-6); LYMPHOCYTES % (MANUAL) 38 % (13-45); MONOCYTES % (MANUAL) 13 % (3-13); NUCLEATED RED BLOOD CELLS 2 /100 WBC (0); SEGMENTED NEUTROPHILS % (MAN) 49 % (42-78); TOTAL CELLS COUNTED 100
[2018-09-03 11:11] LABS: ANISOCYTOSIS 2+; POIKILOCYTOSIS 2+; POLYCHROMASIA 1+
[2018-09-03 11:12] LABS: HOWELL-JOLLY BODIES PRESENT; PLATELET COMMENT ADEQUATE; SCHISTOCYTES SLIGHT; SICKLE RED CELLS 2+; STOMATOCYTES SLIGHT; TARGET CELLS 1+
[2018-09-03 11:14] LABS: PLATELET GIANT PRESENT; PLATELET LARGE PRESENT
== END 2018-09-02 11:19 | disposition home or self-care (01) ==
LOC: ER 02:51
DX: D57.1 Sickle-cell disease without crisis (principal); M79.10 Myalgia, unspecified site; M79.89 Other specified soft tissue disorders; Z88.0 Allergy status to penicillin; Z91.040 Latex allergy status; Z88.3 Allergy status to other anti-infective agents
CPT/HCPCS: 36591; 96376; 99284; 96374; 96375; 36415; 85025; 85045; 80053; 93971; J1200; J1170; J1642

== ENCOUNTER 2018-09-02 20:44 | Inpatient (IN) | payer MEDICARE, MEDICAID ==
[2018-09-02 21:42] LABS: ABSOLUTE RETICS # 0.171 10^6/uL (0.028-0.122); HEMATOCRIT 27.1 % (37.9-51.0); HEMOGLOBIN 9.5 g/dL (13.5-17.0); MEAN CORPUSCULAR HEMOGLOBIN 34.7 pg (27.0-33.4); MEAN CORPUSCULAR HGB CONC 34.9 g/dL (32.0-36.0); MEAN CORPUSCULAR VOLUME 99 fl (80-97); PLATELET COUNT 369 10^3/uL (150-450); RED BLOOD COUNT 2.72 10^6/uL (4.35-5.55); RED CELL DISTRIBUTION WIDTH 19.9 % (11.5-14.0); RETICULOCYTE COUNT (AUTO) 6.27 % (0.66-2.85); WHITE BLOOD COUNT 4.9 10^3/uL (4.0-10.5)
[2018-09-02 21:54] LABS: ALANINE AMINOTRANSFERASE 32 U/L (21-72); ALBUMIN 3.7 g/dL (3.5-5.0); ALKALINE PHOSPHATASE 78 U/L (38-126); ANION GAP 9 (5-19); ASPARTATE AMINO TRANSFERASE 33 U/L (17-59); BILIRUBIN,DIRECT 0.2 mg/dL (0.0-0.4); BILIRUBIN,TOTAL 1.6 mg/dL (0.2-1.3); BLOOD UREA NITROGEN 7 mg/dL (7-20); CALCIUM 7.9 mg/dL (8.4-10.2); CARBON DIOXIDE 26 mmol/L (22-30); CHLORIDE 107 mmol/L (98-107); GLUCOSE 76 mg/dL (75-110); POTASSIUM 3.3 mmol/L (3.6-5.0); SODIUM 141.7 mmol/L (137-145); TOTAL PROTEIN 6.9 g/dL (6.3-8.2)
[2018-09-02 22:05] LABS: ABSOLUTE LYMPHOCYTES# (MANUAL) 1.3 10^3/uL (0.5-4.7); ABSOLUTE MONOCYTES # (MANUAL) 0.5 10^3/uL (0.1-1.4); ABSOLUTE NEUTROPHILS# (MANUAL) 2.8 10^3/uL (1.7-8.2); BASOPHILS % (MANUAL) 1 % (0-2); EOSINOPHILS % (MANUAL) 4 % (0-6); LYMPHOCYTES % (MANUAL) 24 % (13-45); MONOCYTES % (MANUAL) 11 % (3-13); SEGMENTED NEUTROPHILS % (MAN) 57 % (42-78); TOTAL CELLS COUNTED 100
[2018-09-02 22:06] LABS: SICKLE RED CELLS 2+
[2018-09-02 22:07] LABS: PLATELET COMMENT ADEQUATE; POLYCHROMASIA 1+
[2018-09-02 22:08] LABS: ANISOCYTOSIS 2+; HYPOCHROMASIA SLIGHT; OVALOCYTES 1+; SCHISTOCYTES SLIGHT; TARGET CELLS SLIGHT
[2018-09-02] MEDS ORDERED: DIPHENHYDRAMINE HCL 50 MG/ML VIAL IV ONE (23:35)
[2018-09-02] MEDS ORDERED: NORMAL SALINE 1000 ML 1,000 ML IV ONE (23:35)
[2018-09-02] MEDS ORDERED: HYDROMORPHONE HCL INJ/PF 2 MG/ML AMPULE IV ONE (23:35)
--- NOTE | 2018-09-03 00:16 | RADIOLOGY REPORT (SQ) ---
EXAM DESCRIPTION: XR CHEST 1 VIEW COMPLETED DATE/TME: 09/02/2018 23:35 CLINICAL HISTORY: 37 years, Male, dyspnea COMPARISON: 08/08/2018 chest NUMBER OF VIEWS: 1 TECHNIQUE: Portable chest LIMITATIONS: None. FINDINGS: Cardiomegaly. [id number] catheter in place. Coarse chronic interstitial change bilaterally. No pneumothorax IMPRESSION: Cardiomegaly with chronic interstitial change copyright 2010 [employer]- All Rights Reserved
--- NOTE | 2018-09-03 00:30 | ER Document Report ---
ED General - General Chief Complaint: Sickle Cell Crisis Stated Complaint: PAIN ALL OVER Time Seen by Provider: 09/02/18 23:20 Primary Care Provider: BETH STAPLETON MD [Primary Care Provider] - Follow up as needed Notes: Patient is a 37-year-old male with a history of sickle cell disease well-known to us who presents with pain into his right leg and hip. He is been seen here every day for the last few days. He has had issues with his cycles over the last few days such as previous some which resolved after injection to be healing. He also has swollen right leg. Swelling is actually improved today. He was seen yesterday morning and had an ultrasound which showed no evidence of DVT. Patient denies any fevers. He denies any chest pain. Has some mild shortness of breath. He said all of his pain is actually into the lower extremities. He has no other complaints at this time. No abdominal pain. He does have a port in the left upper chest which has been accessed. He was seen today by his medical case worker, Dr. Stapleton, who requested patient be admitted. TRAVEL OUTSIDE OF THE [place] IN LAST 30 DAYS: No - Related Data Allergies/Adverse Reactions: famotidine [From Pepcid] Allergy (Severe, Verified 09/01/18 07:01) Anaphylaxis ketorolac tromethamine [From Toradol] Allergy (Severe, Verified 09/01/18 07:01) levofloxacin [From Levaquin] Allergy (Severe, Verified 09/01/18 07:01) meperidine HCl [From Demerol] Allergy (Severe, Verified 09/01/18 07:01) morphine [Morphine] Allergy (Severe, Verified 09/01/18 07:01) tramadol HCl [From Ultram] Allergy (Severe, Verified 09/01/18 07:01) amoxicillin [Amoxicillin] Allergy (Verified 09/01/18 07:01) fentanyl [Fentanyl] Allergy (Verified 09/01/18 07:01) latex [Latex] Allergy (Verified 09/01/18 07:01) ondansetron HCl [From Zofran] Allergy (Verified 09/01/18 07:01) Pork/Porcine Containing Products Allergy (Verified 07/13/18 03:47) Past Medical History - Social History Smoking Status: Never Smoker Chew tobacco use (# tins/day): No Frequency of alcohol use: None Drug Abuse: None Family History: Reviewed & Not Pertinent, Other - Sickle cell disease Patient has suicidal ideation: No Patient has homicidal ideation: No - Past Medical History Cardiac Medical History: Denies: Hx Atrial Fibrillation, Hx Congestive Heart Failure, Hx Coronary Artery Disease Pulmonary Medical History: Reports: Hx Pneumonia Denies: Hx Asthma, Hx Bronchitis, Hx COPD, Hx Tuberculosis Neurological Medical History: Reports: Hx Seizures. Denies: Hx Migraine Endocrine Medical History: Denies: Hx Diabetes Mellitus Type 1, Hx Diabetes Mellitus Type 2 Renal/ Medical History: Denies: Hx Peritoneal Dialysis GI Medical History: Denies: Hx Cirrhosis, Hx Hepatitis Musculoskeletal Medical History: Denies Hx Arthritis, Denies Hx Gout, Reports Hx Musculoskeletal Deformity - right hip avascular necrosis Skin Medical History: Denies Hx Eczema, Denies Hx Psoriasis Psychiatric Medical History: Reports: Hx Depression Infectious Medical History: Denies: Hx Hepatitis Past Surgical History: Reports: Hx Appendectomy, Hx Vascular Surgery - L port placement, Other - Port placement - Immunizations Immunizations up to date: Yes Hx Diphtheria, Pertussis, Tetanus Vaccination: Yes Hx Pneumococcal Vaccination: 02/20/11 Review of Systems - Review of Systems Notes: My Normal Review Basic REVIEW OF SYSTEMS: CONSTITUTIONAL : Denies fever, chills, or sweats. Denies recent illness. EENT: Denies eye, ear, throat, or mouth pain or symptoms. Denies nasal or sinus congestion. CARDIOVASCULAR: Denies chest pain. RESPIRATORY: Denies cough, cold, or chest congestion. mild dyspnea GASTROINTESTINAL: Denies abdominal pain. Denies nausea, vomiting, or diarrhea. MUSCULOSKELETAL: Denies neck or back pain or joint pain or swelling. SKIN: Denies rash or skin lesions. HEMATOLOGIC : Sickle Cell anemia NEUROLOGICAL: Denies altered mental status or loss of consciousness. Denies headache. Denies weakness or paralysis or loss of use of either side. Denies problems with gait or speech. Denies sensory or motor loss. ALL OTHER SYSTEMS REVIEWED AND NEGATIVE. Physical Exam - Vital signs Vitals: Temp Pulse Resp BP Pulse Ox 98.8 F 79 20 153/90 H 97 09/02/18 21:04 09/02/18 21:04 09/02/18 21:04 09/02/18 21:04 09/02/18 21:04 - Notes Notes: General Appearance: Well nourished, alert, cooperative, no acute distress, mild obvious discomfort. Vitals: reviewed, See vital signs table. Head: no swelling or tenderness to the head Eyes: PERRL, EOMI, Conjuctiva clear Mouth: No decreasd moisture Lungs: No wheezing, No rales, No rhonci, No accessory muscle use, good air exchange bilaterally. Heart: Normal rate, Regular rythm, No murmur, no rub Abdomen: Normal BS, soft, No rigidity, No abdominal tenderness, No guarding, no rebound, no abdominal masses, no organomegaly Extremities: strength 5/5 in all extremities, good pulses in all extremities, mild leg swelling in the right lower extremity in comparison to the left. No abnormal redness or warmth. Skin: warm, dry, appropriate color, no rash Neuro: speech clear, oriented x 3, normal affect, responds appropriately to questions. Course - Re-evaluation Re-evalutation: 09/03/18 00:29 I did speak with Dr. Stapleton he does request patient be admitted. He requests to ask the hospitalist to place the patient on Dilaudid 3 mg every 2 hours. He said to consult him in the morning and he will take over pain management after that. I did speak with Dr. Bo, hospitalist, who agrees to evaluate the patient for admission. Patient currently has no signs of acute chest syndrome. She had some mild shortness of breath but no chest pain and no fever. His lung stevens are clear. Chest x-ray does not show any acute findings. Dictation of this chart was performed using voice recognition software; therefore, there may be some unintended grammatical errors. - Vital Signs Vital signs: Temp Pulse Resp BP Pulse Ox 98.8 F 79 20 153/90 H 97 09/02/18 21:04 09/02/18 21:04 09/02/18 21:04 09/02/18 21:04 09/02/18 21:04 - Laboratory Result Diagrams: 09/02/18 21:23 09/02/18 21:23 Laboratory results interpreted by me: 09/02/18 09/02/18 21:23 21:23 RBC 2.72 L Hgb 9.5 L Hct 27.1 L MCV 99 H MCH 34.7 H RDW 19.9 H Retic Count (auto) 6.27 H Absolute Retic 0.171 H Potassium 3.3 L Calcium 7.9 L Total Bilirubin 1.6 H Discharge - Discharge Clinical Impression: Sickle cell crisis Sickle cell anemia Qualifiers: Sickle-cell associated disorders: with unspecified crisis Qualified Code(s): D57.00 - Hb-SS disease with crisis, unspecified; D57.0 - Hb-SS disease with crisis Condition: Stable Disposition: ADMITTED OBSERVATION Admitting Provider: Betzy (Hospitalist) Unit Admitted: Telemetry Referrals: BETH STAPLETON MD [Primary Care Provider] - Follow up as needed
[2018-09-03] MEDS ORDERED: HYDROMORPHONE HCL INJ/PF 2 MG/ML AMPULE IV ONE (01:01)
[2018-09-03] MEDS ORDERED: TEMAZEPAM 15 MG CAPSULE PO PRN (01:05)
[2018-09-03] MEDS ORDERED: MAGNESIUM HYDROXIDE SUSP 30 ML UDCUP PO PRN (01:05)
[2018-09-03] MEDS ORDERED: MAG HYDROX/AL HYDROX/SIMETH SUSP 30 ML UDCUP PO PRN (01:05)
[2018-09-03] MEDS ORDERED: PROMETHAZINE HCL INJ 25 MG/1 ML VIAL IV PRN (01:12)
[2018-09-03] MEDS ORDERED: HYDRALAZINE HCL INJ/PF 20 MG/1 ML SDV IV PRN (01:15)
[2018-09-03] MEDS ORDERED: DIPHENHYDRAMINE HCL 50 MG/ML VIAL IV PRN (01:15)
[2018-09-03] MEDS: RINGERS SOLUTION,LACTATED 1,000 ML IV PRN ×4 (02:34→23:21)
[2018-09-03] MEDS ORDERED: BACLOFEN 10 MG TABLET PO PRN (03:02)
[2018-09-03] MEDS ORDERED: IBUPROFEN 600 MG TABLET PO PRN (03:02)
--- NOTE | 2018-09-03 03:16 | PDOC H&P ---
History of Present Illness Admission Date/PCP: 09/03/2018 BETH STAPLETON MD Patient complains of: Right hip and lower extremity pain History of Present Illness: MARISA GARBER is a 37 year old male who presents with a 3-week history of right lower extremity pain. He admits a long history of sickle cell disease with intermittent crisis 1 of which he has been experiencing for the last 3 we eks. His exquisitely severe pain has been primarily in his right heel and radiating up the right leg to the right hip and has been accompanied by moderate swelling in the right lower extremity which has improved over the last day. He has mild exertional dyspnea associated with his sickle cell pain but denies other accompanying or associated symptoms. He admits numerous prior similar episodes with sickle cell crisis, though none have lasted this length of time. He has not identified any aggravating or ameliorating factors for his pain other than Dilaudid which does improve his pain for short time. In the emergency room he was found to have a hemoglobin of 9.5 and mild hypokalemia and hypocalcemia. With these findings and the recommendation of Dr. Stapleton that the patient be admitted he was subsequently admitted to the hospital for further evaluation and treatment of his sickle cell crisis. Past Medical History Cardiac Medical History: Denies: Atrial Fibrillation, Congestive Heart Failure, Coronary Artery Disease Pulmonary Medical History: Reports: Pneumonia Denies: Asthma, Bronchitis, Chronic Obstructive Pulmonary Disease (COPD), Tuberculosis EENT Medical History: Denies: Cataracts, Ears - Hearing aids Neurological Medical History: Reports: Seizures Denies: Migraine Endocrine Medical History: Denies: Diabetes Mellitus Type 1, Diabetes Mellitus Type 2 Renal/ Medical History: Denies: Chronic Kidney Disease, Nephrolithiasis Malignancy Medical History: Reports: None GI Medical History: Denies: Cirrhosis, Hepatitis Musculoskeltal Medical History: Denies: Arthritis, Gout Skin Medical History: Denies: Eczema, Psoriasis Psychiatric Medical History: Reports: Depression Denies: Alcohol Dependency, Substance Abuse, Tobacco Dependency Traumatic Medical History: Reports: None Hematology: Reports: Anemia, Sickle Cell Disease Denies: Hemophilia, Bleeding Tendencies Infectious Medical History: Reports: None Past Surgical History Past Surgical History: Reports: Appendectomy, Vascular Surgery - L port placement, Other - Port placement Social History Information Source: Patient Lives with: Family Smoking Status: Never Smoker Frequency of Alcohol Use: None Hx Recreational Drug Use: No Drugs: None Hx Prescription Drug Abuse: No Past Social History Note: 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[employer] Resuscitation Status: Full Code Surrogate healthcare decision maker:: Beka Garber Family History Family History: Other - Sickle cell disease Parental Family History Reviewed: Yes Children Family History Reviewed: No Sibling(s) Family History Reviewed.: Yes Medication/Allergy Home Medications: Methadone HCl [Dolophine HCl] 5 mg PO BID 10/11/16 Oxycodone HCl [Oxycodone HCl 10 MG Tablet] 10 mg PO Q8HP PRN 04/05/17 Hydroxyurea 1,500 mg PO MOWEFR@1000 03/22/18 Docusate Sodium [Colace 100 mg Capsule] 100 mg PO BIDP PRN 04/22/18 Folic Acid [Folvite 1 mg Tablet] 1 mg PO DAILY 04/22/18 Ibuprofen [Motrin 600 mg Tablet] 600 mg PO Q6HP PRN 04/30/18 Baclofen [Baclofen 10 mg Tablet] 10 mg PO HSP PRN 06/10/18 Hydroxyurea [Hydrea 500 mg Capsule] 500 mg PO SUTHFRSA@1000 06/10/18 Pseudoephedrine HCl [Sudafed] 60 mg PO QPM 06/10/18 Sennosides [Senokot] 34.4 mg PO HSP PRN 06/10/18 Terbutaline Sulfate [Brethine] 5 mg PO Q6HP PRN 06/10/18 Gabapentin [Neurontin 100 mg Capsule] 100 mg PO ASDIR #60 capsule 08/31/18 Allergies/Adverse Reactions: famotidine [From Pepcid] Allergy (Severe, Verified 09/01/18 07:01) Anaphylaxis ketorolac tromethamine [From Toradol] Allergy (Severe, Verified 09/01/18 07:01) levofloxacin [From Levaquin] Allergy (Severe, Verified 09/01/18 07:01) meperidine HCl [From Demerol] Allergy (Severe, Verified 09/01/18 07:01) morphine [Morphine] Allergy (Severe, Verified 09/01/18 07:01) tramadol HCl [From Ultram] Allergy (Severe, Verified 09/01/18 07:01) amoxicillin [Amoxicillin] Allergy (Verified 09/01/18 07:01) fentanyl [Fentanyl] Allergy (Verified 09/01/18 07:01) latex [Latex] Allergy (Verified 09/01/18 07:01) ondansetron HCl [From Zofran] Allergy (Verified 09/01/18 07:01) Pork/Porcine Containing Products Allergy (Verified 07/13/18 03:47) Review of Systems Constitutional: ABSENT: chills, fever(s) Eyes: ABSENT: visual disturbances, other - Ocular pain Ears: ABSENT: hearing changes, other - Ear pain Nose, Mouth, and Throat: ABSENT: mouth pain, sore throat Cardiovascular: PRESENT: dyspnea on exertion, edema - Right lower extremity. ABSENT: chest pain, orthropnea, palpitations Respiratory: ABSENT: cough, dyspnea Gastrointestinal: ABSENT: abdominal pain, constipation, diarrhea, nausea, vomiting Genitourinary: ABSENT: dysuria, hematuria Musculoskeletal: PRESENT: as per HPI, other - Pain in right heel and upper right leg to the right hip. ABSENT: back pain, joint swelling, muscle weakness Integumentary: ABSENT: pruritus, rash Neurological: ABSENT: confusion, convulsions, focal weakness, memory loss, syncope Psychiatric: ABSENT: anxiety, depression Endocrine: ABSENT: cold intolerance, heat intolerance Hematologic/Lymphatic: ABSENT: easy bleeding, easy bruising Physical Exam Vital Signs: Temp Pulse Resp BP Pulse Ox 98.8 F 79 20 153/90 H 97 09/02/18 21:04 09/02/18 21:04 09/02/18 21:04 09/02/18 21:04 09/02/18 21:04 Intake & Output 09/01/18 09/02/18 09/03/18 23:59 23:59 23:59 Weight 86.3 kg General appearance: PRESENT: no acute distress, cooperative Head exam: PRESENT: atraumatic, normocephalic Eye exam: ABSENT: conjunctival injection, scleral icterus Ear exam: PRESENT: normal external ear exam. ABSENT: bleeding, drainage Mouth exam: PRESENT: dry mucosa, neck supple Neck exam: ABSENT: thyromegaly, tracheal deviation Respiratory exam: PRESENT: clear to auscultation anastasiya, symmetrical, unlabored Cardiovascular exam: PRESENT: RRR. ABSENT: clicks, gallop, rubs Pulses: PRESENT: normal radial pulses, normal dorsalis pedis pul Vascular exam: PRESENT: normal capillary refill. ABSENT: pallor GI/Abdominal exam: PRESENT: normal bowel sounds, soft Rectal exam: PRESENT: deferred Extremities exam: PRESENT: pedal edema - Right foot, +1 edema - Right lower extremity. ABSENT: joint swelling Musculoskeletal exam: ABSENT: deformity, dislocation Neurological exam: PRESENT: alert, oriented to person, oriented to place, oriented to time, oriented to situation, CN II-XII grossly intact. ABSENT: motor sensory deficit Psychiatric exam: PRESENT: appropriate affect, normal mood Skin exam: PRESENT: dry, intact, warm. ABSENT: jaundice, rash, urticaria Results Laboratory Results: 09/02/18 21:23 09/02/18 21:23 09/02/18 09/02/18 21:23 21:23 WBC 4.9 RBC 2.72 L Hgb 9.5 L Hct 27.1 L MCV 99 H MCH 34.7 H MCHC 34.9 RDW 19.9 H Plt Count 369 Seg Neutrophils % Not Reportable Lymphocytes % Not Reportable Monocytes % Not Reportable Eosinophils % Not Reportable Basophils % Not Reportable Absolute Neutrophils Not Reportable Absolute Lymphocytes Not Reportable Absolute Monocytes Not Reportable Absolute Eosinophils Not Reportable Absolute Basophils Not Reportable Retic Count (auto) 6.27 H Absolute Retic 0.171 H Sodium 141.7 Potassium 3.3 L Chloride 107 Carbon Dioxide 26 Anion Gap 9 BUN 7 Creatinine 0.57 Est GFR ( Amer) > 60 Est GFR (Non-Af Amer) > 60 Glucose 76 Calcium 7.9 L Total Bilirubin 1.6 H AST 33 ALT 32 Alkaline Phosphatase 78 Total Protein 6.9 Albumin 3.7 Impressions: Chest X-Ray 09/02/18 23:35 IMPRESSION: Cardiomegaly with chronic interstitial change copyright 2011 [employer]- All Rights Reserved Assessment and Plan - Diagnosis (1) Acute pain of right lower extremity Is this a current diagnosis for this admission?: Yes Plan: Patient will be treated with IV Dilaudid 3 mg every 2 hours as needed for pain management. Dr. Stapleton will assume the management of the patient's pain on the morning of 09/03/2018. (2) Sickle cell crisis Is this a current diagnosis for this admission?: Yes Plan: Patient be treated with supportive measures including IV fluids and pain control. His hemoglobin will be monitored on a regular basis and he will receive transfusions as necessary. Dr. Stapleton will be consulted for hematology. (3) Swelling of right lower extremity Is this a current diagnosis for this admission?: Yes Plan: Patient's lower leg swelling will be treated with supportive measures and symptomatic measures including elevation and pain control. (4) GI prophylaxis Is this a current diagnosis for this admission?: Yes Plan: Patient received GI prophylaxis utilizing Pepcid 20 mg p.o. twice daily. (5) DVT prophylaxis Is this a current diagnosis for this admission?: Yes Plan: Patient will receive DVT prophylaxis utilizing heparin 5000 units subcu every 8 hours. He will also use ALFREDITO hose. - Time Time Spent with patient: 25-34 minutes Anticipated discharge: Home - Inpatient Certification Based on my medical assessment, after consideration of the patient's comorbidities, presenting symptoms, or acuity I expect that the services needed warrant INPATIENT care.: Yes I certify that my determination is in accordance with my understanding of Medicare's requirements for reasonable and necessary INPATIENT services [42 CFR 412.3e].: Yes Medical Necessity: Need Close Monitoring Due to Risk of Patient Decompensation, Need For IV Fluids, Need for Pain Control, Risk of Complication if Not Cared For in Hospital
[2018-09-03] MEDS: HYDROMORPHONE HCL INJ/PF 2 MG/ML AMPULE IV PRN ×8 (03:32→23:26)
--- NOTE | 2018-09-03 08:27 | PDOC CONSULTATION ---
Consultation Consult Date: 09/03/18 Attending physician:: SHEILA GOULD Provider Consulted: BETH STAPLETON Consult reason:: Severe pain R foot, pain crisis History of Present Illness Admission Date/PCP: 09/03/18 00:43 BETH STAPLETON MD Patient complains of: Severe pain in the right foot, pain crisis History of Present Illness: MARISA GARBER is a 37 year old male who presented yesterday morning to the ED with severe pain in the right foot, he has known history of severe sickle cell disease with frequent crises necessitating admissions. Most recently about 3 weeks ago. But he had been getting better from that pain crisis, but over the last 48 hours has had rapidly increasing right foot pain, he tells me the pain was going on for about a week but he was hoping that it would be a low level crisis pain he could not do it at home, but ultimately got so severe that he came to the ED yesterday morning, he was given IV pain medication and hydration as well as had a lower extremity ultrasound which was negative for DVT. He went home but the pain increased and he called our office and we instructed him go back to the ED, gave the emergency room instructions to get him admitted. He was admitted and placed on Dilaudid 3 mg IV every 2 hours and is doing well with that dose currently. The pain is improved but he feels like the pain starts at the bottom of the foot and goes all the way up to the knee. Past Medical History Cardiac Medical History: Denies: Atrial Fibrillation, Congestive Heart Failure, Coronary Artery Disease Pulmonary Medical History: Reports: Pneumonia Denies: Asthma, Bronchitis, Chronic Obstructive Pulmonary Disease (COPD), Tuberculosis EENT Medical History: Denies: Cataracts, Ears - Hearing aids Neurological Medical History: Reports: Seizures Denies: Migraine Endocrine Medical History: Denies: Diabetes Mellitus Type 1, Diabetes Mellitus Type 2 Renal/ Medical History: Denies: Chronic Kidney Disease, Nephrolithiasis Malignancy Medical History: Reports: None GI Medical History: Denies: Cirrhosis, Hepatitis Musculoskeltal Medical History: Denies: Arthritis, Gout Skin Medical History: Denies: Eczema, Psoriasis Psychiatric Medical History: Reports: Depression Denies: Alcohol Dependency, Substance Abuse, Tobacco Dependency Traumatic Medical History: Reports: None Hematology: Reports: Anemia, Sickle Cell Disease Denies: Hemophilia, Bleeding Tendencies Infectious Medical History: Reports: None Past Surgical History Past Surgical History: Reports: Appendectomy, Vascular Surgery - L port placement, Other - Port placement Social History Information Source: Patient Lives with: Family Smoking Status: Never Smoker Frequency of Alcohol Use: None Hx Recreational Drug Use: No Drugs: None Hx Prescription Drug Abuse: No - Advance Directive Resuscitation Status: Full Code Family History Family History: Other - Sickle cell disease Parental Family History Reviewed: Yes Children Family History Reviewed: Yes Sibling(s) Family History Reviewed.: Yes Medication/Allergy Home Medications: Methadone HCl [Dolophine HCl] 5 mg PO BID 10/11/16 Oxycodone HCl [Oxycodone HCl 10 MG Tablet] 10 mg PO Q8HP PRN 04/05/17 Hydroxyurea 1,500 mg PO MOWEFR@1000 03/22/18 Docusate Sodium [Colace 100 mg Capsule] 100 mg PO BIDP PRN 04/22/18 Folic Acid [Folvite 1 mg Tablet] 1 mg PO DAILY 04/22/18 Ibuprofen [Motrin 600 mg Tablet] 600 mg PO Q6HP PRN 04/30/18 Baclofen [Baclofen 10 mg Tablet] 10 mg PO HSP PRN 06/10/18 Hydroxyurea [Hydrea 500 mg Capsule] 500 mg PO SUTHFRSA@1000 06/10/18 Pseudoephedrine HCl [Sudafed] 60 mg PO QPM 06/10/18 Sennosides [Senokot] 34.4 mg PO HSP PRN 06/10/18 Terbutaline Sulfate [Brethine] 5 mg PO Q6HP PRN 06/10/18 Gabapentin [Neurontin 100 mg Capsule] 100 mg PO ASDIR #60 capsule 08/31/18 Allergies/Adverse Reactions: famotidine [From Pepcid] Allergy (Severe, Verified 09/01/18 07:01) Anaphylaxis ketorolac tromethamine [From Toradol] Allergy (Severe, Verified 09/01/18 07:01) levofloxacin [From Levaquin] Allergy (Severe, Verified 09/01/18 07:01) meperidine HCl [From Demerol] Allergy (Severe, Verified 09/01/18 07:01) morphine [Morphine] Allergy (Severe, Verified 09/01/18 07:01) tramadol HCl [From Ultram] Allergy (Severe, Verified 09/01/18 07:01) amoxicillin [Amoxicillin] Allergy (Verified 09/01/18 07:01) fentanyl [Fentanyl] Allergy (Verified 09/01/18 07:01) latex [Latex] Allergy (Verified 09/01/18 07:01) ondansetron HCl [From Zofran] Allergy (Verified 09/01/18 07:01) Pork/Porcine Containing Products Allergy (Verified 07/13/18 03:47) Review of Systems Constitutional: ABSENT: chills, fever(s), headache(s), weight gain, weight loss Eyes: ABSENT: visual disturbances Ears: ABSENT: hearing changes Cardiovascular: ABSENT: chest pain, dyspnea on exertion, edema, orthropnea, palpitations Respiratory: ABSENT: cough, hemoptysis Gastrointestinal: ABSENT: abdominal pain, constipation, diarrhea, hematemesis, hematochezia, nausea, vomiting Genitourinary: ABSENT: dysuria, hematuria Musculoskeletal: ABSENT: joint swelling Integumentary: ABSENT: rash, wounds Neurological: ABSENT: abnormal gait, abnormal speech, confusion, dizziness, focal weakness, syncope Psychiatric: ABSENT: anxiety, depression, homidical ideation, suicidal ideation Endocrine: ABSENT: cold intolerance, heat intolerance, polydipsia, polyuria Hematologic/Lymphatic: ABSENT: easy bleeding, easy bruising Physical Exam Vital Signs: Temp Pulse Resp BP Pulse Ox 98.1 F 77 16 126/86 H 95 09/03/18 07:18 09/03/18 07:18 09/03/18 07:18 09/03/18 07:18 09/03/18 07:18 Intake & Output 09/02/18 09/03/18 09/04/18 06:59 06:59 06:59 Intake Total 1400 Balance 1400 Weight 84.2 kg General appearance: PRESENT: no acute distress, well-developed, well-nourished Head exam: PRESENT: atraumatic, normocephalic Eye exam: PRESENT: conjunctiva pink, EOMI, PERRLA. ABSENT: scleral icterus Ear exam: PRESENT: normal external ear exam Mouth exam: PRESENT: moist, tongue midline Neck exam: ABSENT: carotid bruit, JVD, lymphadenopathy, thyromegaly Respiratory exam: PRESENT: clear to auscultation anastasiya. ABSENT: rales, rhonchi, wheezes Cardiovascular exam: PRESENT: RRR. ABSENT: diastolic murmur, rubs, systolic mur mur Pulses: PRESENT: normal dorsalis pedis pul Vascular exam: PRESENT: normal capillary refill GI/Abdominal exam: PRESENT: normal bowel sounds, soft. ABSENT: distended, guarding, mass, organolmegaly, rebound, tenderness Rectal exam: PRESENT: deferred Extremities exam: PRESENT: full ROM. ABSENT: calf tenderness, clubbing, pedal edema Neurological exam: PRESENT: alert, awake, oriented to person, oriented to place, oriented to time, oriented to situation, CN II-XII grossly intact. ABSENT: motor sensory deficit Psychiatric exam: PRESENT: appropriate affect, normal mood. ABSENT: homicidal ideation, suicidal ideation Skin exam: PRESENT: dry, intact, warm. ABSENT: cyanosis, rash Results Laboratory Results: 09/02/18 21:23 09/02/18 21:23 09/02/18 09/02/18 21:23 21:23 WBC 4.9 RBC 2.72 L Hgb 9.5 L Hct 27.1 L MCV 99 H MCH 34.7 H MCHC 34.9 RDW 19.9 H Plt Count 369 Seg Neutrophils % Not Reportable Lymphocytes % Not Reportable Monocytes % Not Reportable Eosinophils % Not Reportable Basophils % Not Reportable Absolute Neutrophils Not Reportable Absolute Lymphocytes Not Reportable Absolute Monocytes Not Reportable Absolute Eosinophils Not Reportable Absolute Basophils Not Reportable Retic Count (auto) 6.27 H Absolute Retic 0.171 H Sodium 141.7 Potassium 3.3 L Chloride 107 Carbon Dioxide 26 Anion Gap 9 BUN 7 Creatinine 0.57 Est GFR ( Amer) > 60 Est GFR (Non-Af Amer) > 60 Glucose 76 Calcium 7.9 L Total Bilirubin 1.6 H AST 33 ALT 32 Alkaline Phosphatase 78 Total Protein 6.9 Albumin 3.7 Impressions: Chest X-Ray 09/02/18 23:35 IMPRESSION: Cardiomegaly with chronic interstitial change copyright 2010 [employer]- All Rights Reserved Status: Image reviewed by me Assessment & Plan - Diagnosis (1) Acute pain of right lower extremity Is this a current diagnosis for this admission?: Yes Plan: Most likely secondary to sickle cell crisis but I have ordered an x-ray of the right foot just to ensure that there is no bone abnormality other than sickling. (2) Sickle cell crisis Is this a current diagnosis for this admission?: Yes Plan: Sickle cell disease with crisis, plan for continued IV pain medication, K pad, other measures for comfort. 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 - Time Time Spent: Greater than 70 Minutes - Inpatient Certification Based on my medical assessment, after consideration of the patient's c omorbidities, presenting symptoms, or acuity I expect that the services needed warrant INPATIENT care.: Yes I certify that my determination is in accordance with my understanding of Medicare's requirements for reasonable and necessary INPATIENT services [42 CFR 412.3e].: Yes Medical Necessity: Failure to Improve With Outpatient Therapy, Need For IV Fluids, Need for Pain Control, Risk of Complication if Not Cared For in Hospital
[2018-09-03] MEDS ORDERED: SENNOSIDES/DOCUSATE 8.6-50 MG 1 EACH TABLET PO PRN (09:04)
[2018-09-03] MEDS ORDERED: POLYETHYLENE GLYCOL 3350 POWDER 17 GM/1 PACKET PO PRN (09:05)
[2018-09-03] MEDS: FOLIC ACID 1 MG TABLET PO SCH (09:25)
[2018-09-03] MEDS: DOCUSATE SODIUM 100 MG CAPSULE PO SCH ×2 (09:25→18:30)
[2018-09-03] MEDS: HYDROXYUREA 500 MG CAPSULE PO SCH (09:27)
--- NOTE | 2018-09-03 10:52 | RADIOLOGY REPORT (SQ) ---
EXAM DESCRIPTION: FOOT RIGHT COMPLETE COMPLETED DATE/TIME: 09/03/2018 9:48 am REASON FOR STUDY: pain, hx sickle cell COMPARISON: None. NUMBER OF VIEWS: Three views. TECHNIQUE: AP, lateral and oblique radiographic images acquired of the right foot. LIMITATIONS: None. FINDINGS: MINERALIZATION: Appearing decreased mineralization. . BONES: No acute fracture or dislocation. Dysmorphic appearance at the proximal 4th metatarsal possib ly related to remote trauma. No worrisome bone lesions. Os peroneum JOINTS: No effusions. SOFT TISSUES: No soft tissue swelling. No foreign body. OTHER: No other significant finding. IMPRESSION: 1. No definite acute bony abnormality. 2. Mildly dysmorphic appearance at the proximal 4th metatarsal possibly related to remote trauma. TECHNICAL DOCUMENTATION: JOB ID: [id number] [employer]- All Rights Reserved Reading location - IP/workstation name: [email or web address]
[2018-09-04] MEDS: ACETAMINOPHEN 325 MG TABLET PO PRN ×2 (00:17→17:10)
[2018-09-04] MEDS: HYDROMORPHONE HCL INJ/PF 2 MG/ML AMPULE IV PRN ×8 (02:12→23:36)
[2018-09-04] MEDS: DIPHENHYDRAMINE HCL 50 MG/ML VIAL IV PRN (05:07)
[2018-09-04 06:32] LABS: ANION GAP 7 (5-19); BLOOD UREA NITROGEN 4 mg/dL (7-20); CALCIUM 8.9 mg/dL (8.4-10.2); CARBON DIOXIDE 32 mmol/L (22-30); CHLORIDE 101 mmol/L (98-107); GLUCOSE 83 mg/dL (75-110); POTASSIUM 3.9 mmol/L (3.6-5.0); SODIUM 140.3 mmol/L (137-145)
[2018-09-04 06:40] LABS: ABSOLUTE RETICS # 0.138 10^6/uL (0.028-0.122); HEMATOCRIT 25.2 % (37.9-51.0); HEMOGLOBIN 8.8 g/dL (13.5-17.0); MEAN CORPUSCULAR HEMOGLOBIN 34.6 pg (27.0-33.4); MEAN CORPUSCULAR VOLUME 99 fl (80-97); PLATELET COUNT 298 10^3/uL (150-450); RED BLOOD COUNT 2.55 10^6/uL (4.35-5.55); RED CELL DISTRIBUTION WIDTH 19.7 % (11.5-14.0); WHITE BLOOD COUNT 4.3 10^3/uL (4.0-10.5)
--- NOTE | 2018-09-04 08:37 | PDOC PROGRESS REPORT ---
Subjective Progress Note for:: 09/04/18 Subjective:: Patient is feeling better, foot is better, reviewed foot x-ray and there is some changes at the fourth metatarsal noted, no fracture but probable sickling changes in my opinion. This is probably a focus of his pain and unfortunately will be a focus in future crisis most likely in the future. Discussed this with him so he is aware. Reason For Visit: SICKLE CELL CRISIS Physical Exam Vital Signs: Temp Pulse Resp BP Pulse Ox 97.7 F 52 L 12 144/95 H 100 09/04/18 07:39 09/04/18 07:39 09/04/18 07:39 09/04/18 07:39 09/04/18 07:39 Intake & Output 09/03/18 09/04/18 09/05/18 06:59 06:59 06:59 Intake Total 1400 3355 Output Total 1800 Balance 1400 1555 Weight 84.2 kg 84 kg General appearance: PRESENT: no acute distress, well-developed, well-nourished Head exam: PRESENT: atraumatic, normocephalic Eye exam: PRESENT: conjunctiva pink, EOMI, PERRLA. ABSENT: scleral icterus Ear exam: PRESENT: normal external ear exam Mouth exam: PRESENT: moist, tongue midline Neck exam: ABSENT: carotid bruit, JVD, lymphadenopathy, thyromegaly Respiratory exam: PRESENT: clear to auscultation anastasiya. ABSENT: rales, rhonchi, wheezes Cardiovascular exam: PRESENT: RRR. ABSENT: diastolic murmur, rubs, systolic murmur Pulses: PRESENT: normal dorsalis pedis pul Vascular exam: PRESENT: normal capillary refill GI/Abdominal exam: PRESENT: normal bowel sounds, soft. ABSENT: distended, guarding, mass, organolmegaly, rebound, tenderness Rectal exam: PRESENT: deferred Extremities exam: PRESENT: full ROM. ABSENT: calf tenderness, clubbing, pedal edema Neurological exam: PRESENT: alert, awake, oriented to person, oriented to place, oriented to time, oriented to situation, CN II-XII grossly intact. ABSENT: motor sensory deficit Psychiatric exam: PRESENT: appropriate affect, normal mood. ABSENT: homicidal ideation, suicidal ideation Skin exam: PRESENT: dry, intact, warm. ABSENT: cyanosis, rash Results Laboratory Results: 09/04/18 06:31 09/04/18 05:53 09/04/18 09/04/18 05:53 06:31 WBC 4.3 RBC 2.55 L Hgb 8.8 L Hct 25.2 L MCV 99 H MCH 34.6 H MCHC 35.0 RDW 19.7 H Plt Count 298 Retic Count (auto) 5.40 H Absolute Retic 0.138 H Sodium 140.3 Potassium 3.9 Chloride 101 Carbon Dioxide 32 H Anion Gap 7 BUN 4 L Creatinine 0.59 Est GFR ( Amer) > 60 Est GFR (Non-Af Amer) > 60 Glucose 83 Calcium 8.9 Magnesium 1.8 Impressions: Chest X-Ray 09/02/18 23:35 IMPRESSION: Cardiomegaly with chronic interstitial change copyright 2011 [employer]- All Rights Reserved Foot X-Ray 09/03/18 00:00 IMPRESSION: 1. No definite acute bony abnormality. 2. Mildly dysmorphic appearance at the proximal 4th metatarsal possibly related to remote trauma. Assessment & Plan - Diagnosis (1) Acute pain of right lower extremity Is this a current diagnosis for this admission?: Yes Plan: Secondary to sickling changes in the bone of the metatarsal. 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 Hemolytic anemia type: other hemoglobinopathy Qualified Code(s): D58.2 - Other hemoglobinopathies Is this a current diagnosis for this admission?: Yes Plan: Hemoglobin overall stable no need for transfusion yet - Time Time Spent with patient: 35 or more minutes - Inpatient Certification Based on my medical assessment, after consideration of the patient's comorbidities, presenting symptoms, or acuity I expect that the services needed warrant INPATIENT care.: Yes I certify that my determination is in accordance with my understanding of Medicare's requirements for reasonable and necessary INPATIENT services [42 CFR 412.3e].: Yes Medical Necessity: Need For Continuous Telemetry Monitoring, Need for Pain Control, Risk of Complication if Not Cared For in Hospital
[2018-09-04] MEDS: DOCUSATE SODIUM 100 MG CAPSULE PO SCH ×2 (09:34→17:10)
[2018-09-04] MEDS: FOLIC ACID 1 MG TABLET PO SCH (09:34)
[2018-09-04] MEDS: HYDROXYUREA 500 MG CAPSULE PO SCH (09:35)
[2018-09-04] MEDS: RINGERS SOLUTION,LACTATED 1,000 ML IV PRN ×2 (12:22→18:26)
[2018-09-04] MEDS ORDERED: PROMETHAZINE HCL INJ 25 MG/1 ML VIAL IV PRN (15:30)
--- NOTE | 2018-09-04 16:00 | PDOC PROGRESS REPORT ---
Subjective Progress Note for:: 09/04/18 Subjective:: 37 y.o. M with a H sickle cell disease and seizures presented to [facility] for sickle cell crisis. The patient states the pain is worse in his right foot. Patient was seen this morning on rounds, he is resting comfortably in bed on room air. Patient endorses persistent pain in his right foot radiating up the right leg. The foot is TTP. Pulses are palpable. There is no evidence of peripheral edema, however the patient does not want me to remove his compression stocking. The patient states that his pain is manageable on the current pain regimen. Hgb 8.8. No plans for transfusion today. Continue IVF, supplemental oxygen and IV pain medication. Hopefully discharge within 24 to 48 hours. Reason For Visit: SICKLE CELL CRISIS Physical Exam Vital Signs: Temp Pulse Resp BP Pulse Ox 97.7 F 68 14 120/69 100 09/04/18 11:43 09/04/18 11:43 09/04/18 11:43 09/04/18 11:43 09/04/18 11:43 Intake & Output 09/03/18 09/04/18 09/05/18 06:59 06:59 06:59 Intake Total 1400 4355 Output Total 1800 Balance 1400 2555 Weight 84.2 kg 84 kg General appearance: PRESENT: no acute distress, well-developed, well-nourished Head exam: PRESENT: atraumatic, normocephalic Eye exam: PRESENT: conjunctiva pink, EOMI, PERRLA. ABSENT: scleral icterus Ear exam: PRESENT: normal external ear exam Mouth exam: PRESENT: moist, tongue midline Neck exam: ABSENT: carotid bruit, JVD, lymphadenopathy, thyromegaly Respiratory exam: PRESENT: clear to auscultation anastasiya. ABSENT: rales, rhonchi, wheezes Cardiovascular exam: PRESENT: RRR. ABSENT: diastolic murmur, rubs, systolic murmur Pulses: PRESENT: normal dorsalis pedis pul Vascular exam: PRESENT: normal capillary refill GI/Abdominal exam: PRESENT: normal bowel sounds, soft. ABSENT: distended, guarding, mass, organolmegaly, rebound, tenderness Rectal exam: PRESENT: deferred Extremities exam: PRESENT: full ROM. ABSENT: calf tenderness, clubbing, pedal edema Musculoskeletal exam: PRESENT: ambulatory, full ROM, tenderness - R FOOT TTP Neurological exam: PRESENT: alert, awake, oriented to person, oriented to place, oriented to time, oriented to situation Psychiatric exam: PRESENT: appropriate affect, normal mood Skin exam: PRESENT: dry, intact, warm. ABSENT: cyanosis, rash Results Laboratory Results: 09/04/18 06:31 09/04/18 05:53 09/04/18 09/04/18 05:53 06:31 WBC 4.3 RBC 2.55 L Hgb 8.8 L Hct 25.2 L MCV 99 H MCH 34.6 H MCHC 35.0 RDW 19.7 H Plt Count 298 Retic Count (auto) 5.40 H Absolute Retic 0.138 H Sodium 140.3 Potassium 3.9 Chloride 101 Carbon Dioxide 32 H Anion Gap 7 BUN 4 L Creatinine 0.59 Est GFR ( Amer) > 60 Est GFR (Non-Af Amer) > 60 Glucose 83 Calcium 8.9 Magnesium 1.8 Impressions: Chest X-Ray 09/02/18 23:35 IMPRESSION: Cardiomegaly with chronic interstitial change copyright 2011 [employer]- All Rights Reserved Foot X-Ray 09/03/18 00:00 IMPRESSION: 1. No definite acute bony abnormality. 2. Mildly dysmorphic appearance at the proximal 4th metatarsal possibly related to remote trauma. Status: Imported from PACS Assessment and Plan - Diagnosis (1) Sickle cell anemia Qualifiers: Sickle-cell associated disorders: with unspecified crisis Qualified Code(s): D57.00 - Hb-SS disease with crisis, unspecified; D57.0 - Hb-SS disease with crisis Is this a current diagnosis for this admission?: Yes Plan: Currently in crisis Absolute Retic count 1.38 Hgb decreased from 9-->8.8 No need for transfusion until Hgb < 7 Consulted Heme/Onc, appreciate their recommendations Requiring Dilaudid IV 3mg q2h PRN, nursing documentation reveals that the patient has been asking for the medication every 2 hrs (2) Swelling of right lower extremity Is this a current diagnosis for this admission?: Yes Plan: Patient endorses pain and swelling of the RLE, specifically the R foot Results reveal mild dysmorphic appearance of the proximal fourth metatarsal Possible musculoskeletal manifestation of sickle cell anemia - Time Time Spent with patient: 15-24 minutes Medications reviewed and adjusted accordingly: Yes Anticipated discharge: Home Within: within 24 hours - Inpatient Certification Based on my medical assessment, after consideration of the patient's comorbidities, presenting symptoms, or acuity I expect that the services needed warrant INPATIENT care.: Yes I certify that my determination is in accordance with my understanding of Medicare's requirements for reasonable and necessary INPATIENT services [42 CFR 412.3e].: Yes Medical Necessity: Need for Pain Control
[2018-09-05] MEDS: HYDROMORPHONE HCL INJ/PF 2 MG/ML AMPULE IV PRN ×8 (03:22→21:22)
[2018-09-05] MEDS: DIPHENHYDRAMINE HCL 50 MG/ML VIAL IV PRN ×2 (05:59→21:22)
[2018-09-05 06:04] LABS: HEMATOCRIT 26.1 % (37.9-51.0); HEMOGLOBIN 9.1 g/dL (13.5-17.0); MEAN CORPUSCULAR HEMOGLOBIN 34.7 pg (27.0-33.4); MEAN CORPUSCULAR HGB CONC 34.9 g/dL (32.0-36.0); MEAN CORPUSCULAR VOLUME 99 fl (80-97); PLATELET COUNT 274 10^3/uL (150-450); RED BLOOD COUNT 2.62 10^6/uL (4.35-5.55); RED CELL DISTRIBUTION WIDTH 19.1 % (11.5-14.0)
[2018-09-05 06:27] LABS: BLOOD UREA NITROGEN 8 mg/dL (7-20); CALCIUM 8.8 mg/dL (8.4-10.2); GLUCOSE 107 mg/dL (75-110)
[2018-09-05 06:28] LABS: ANION GAP 9 (5-19); CARBON DIOXIDE 32 mmol/L (22-30); CHLORIDE 100 mmol/L (98-107); POTASSIUM 3.9 mmol/L (3.6-5.0); SODIUM 140.8 mmol/L (137-145)
[2018-09-05] MEDS: RINGERS SOLUTION,LACTATED 1,000 ML IV PRN ×2 (08:24→14:02)
--- NOTE | 2018-09-05 08:25 | PDOC PROGRESS REPORT ---
Subjective Progress Note for:: 09/05/18 Subjective:: Improved but still with significant pain in the right foot. We need another 24 hours of continuous IV pain medication. Reason For Visit: SICKLE CELL CRISIS Physical Exam Vital Signs: Temp Pulse Resp BP Pulse Ox 97.6 F 60 16 144/92 H 96 09/05/18 03:08 09/05/18 03:08 09/05/18 03:08 09/05/18 03:08 09/05/18 03:08 Intake & Output 09/04/18 09/05/18 09/06/18 06:59 06:59 06:59 Intake Total 4355 2530 Output Total 1800 3350 Balance 2555 -820 Weight 84 kg 84.3 kg General appearance: PRESENT: no acute distress, well-developed, well-nourished Head exam: PRESENT: atraumatic, normocephalic Eye exam: PRESENT: conjunctiva pink, EOMI, PERRLA. ABSENT: scleral icterus Ear exam: PRESENT: normal external ear exam Mouth exam: PRESENT: moist, tongue midline Neck exam: ABSENT: carotid bruit, JVD, lymphadenopathy, thyromegaly Respiratory exam: PRESENT: clear to auscultation anastasiya. ABSENT: rales, rhonchi, wheezes Cardiovascular exam: PRESENT: RRR. ABSENT: diastolic murmur, rubs, systolic murmur Pulses: PRESENT: normal dorsalis pedis pul Vascular exam: PRESENT: normal capillary refill GI/Abdominal exam: PRESENT: normal bowel sounds, soft. ABSENT: distended, g uarding, mass, organolmegaly, rebound, tenderness Rectal exam: PRESENT: deferred Extremities exam: PRESENT: full ROM. ABSENT: calf tenderness, clubbing, pedal edema Neurological exam: PRESENT: alert, awake, oriented to person, oriented to place, oriented to time, oriented to situation, CN II-XII grossly intact. ABSENT: mo tor sensory deficit Psychiatric exam: PRESENT: appropriate affect, normal mood. ABSENT: homicidal ideation, suicidal ideation Skin exam: PRESENT: dry, intact, warm. ABSENT: cyanosis, rash Results Laboratory Results: 09/05/18 05:57 09/05/18 05:57 09/05/18 09/05/18 05:57 05:57 WBC 5.0 RBC 2.62 L Hgb 9.1 L Hct 26.1 L MCV 99 H MCH 34.7 H MCHC 34.9 RDW 19.1 H Plt Count 274 Sodium 140.8 Potassium 3.9 Chloride 100 Carbon Dioxide 32 H Anion Gap 9 BUN 8 Creatinine 0.57 Est GFR ( Amer) > 60 Est GFR (Non-Af Amer) > 60 Glucose 107 Calcium 8.8 Magnesium 1.7 Impressions: Chest X-Ray 09/02/18 23:35 IMPRESSION: Cardiomegaly with chronic interstitial change copyright 2011 [employer]- All Rights Reserved Foot X-Ray 09/03/18 00:00 IMPRESSION: 1. No definite acute bony abnormality. 2. Mildly dysmorphic appearance at the proximal 4th metatarsal possibly related to remote trauma. Assessment & Plan - Diagnosis (1) Acute pain of right lower extremity Is this a current diagnosis for this admission?: Yes Plan: Improving, secondary to sickle destruction of the right foot. (2) Sickle cell crisis Is this a current diagnosis for this admission?: Yes Plan: Improving, but still requires inpatient IV continuous pain medications for the next 24 hours. Will reassess tomorrow morning. 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
[2018-09-05] MEDS: HYDROXYUREA 500 MG CAPSULE PO SCH ×2 (09:18→11:08)
[2018-09-05] MEDS: FOLIC ACID 1 MG TABLET PO SCH (09:18)
[2018-09-05] MEDS: DOCUSATE SODIUM 100 MG CAPSULE PO SCH ×2 (09:18→18:39)
[2018-09-06] MEDS: HYDROMORPHONE HCL INJ/PF 2 MG/ML AMPULE IV PRN ×10 (00:04→22:47)
[2018-09-06] MEDS: DIPHENHYDRAMINE HCL 50 MG/ML VIAL IV PRN ×4 (02:32→18:28)
[2018-09-06] MEDS: RINGERS SOLUTION,LACTATED 1,000 ML IV PRN ×2 (02:34→20:39)
--- NOTE | 2018-09-06 07:15 | PDOC PROGRESS REPORT ---
Subjective Progress Note for:: 09/05/18 Subjective:: 37 y.o. M with a H sickle cell disease and seizures presented to [facility] for sickle cell crisis. The patient states the pain is worse in his right foot. Patient was seen this morning on rounds, he is resting comfortably in bed on room air. Patient still endorses persistent pain in his right foot radiating up the right leg. The foot is TTP. Pulses are palpable. There is no evidence of peripheral edema, although the patient states he thinks his foot looks swollen. The patient states that his pain is manageable on the current pain regimen. Hgb 9.1. No plans for transfusion today. Continue IVF, supplemental oxygen and IV pain medication. No plans for discharge today. Will continue to manage his intractable pain. Hopefully discharge within 24 to 48 hours. Reason For Visit: SICKLE CELL CRISIS Physical Exam Vital Signs: Temp Pulse Resp BP Pulse Ox 97.7 F 70 16 134/90 H 98 09/06/18 03:12 09/06/18 03:12 09/06/18 03:12 09/06/18 03:12 09/06/18 03:12 Intake & Output 09/05/18 09/06/18 09/07/18 06:59 06:59 06:59 Intake Total 3530 2991 Output Total 3350 3075 Balance 180 -84 Weight 84.3 kg 85.7 kg General appearance: PRESENT: no acute distress, well-developed, well-nourished Head exam: PRESENT: atraumatic, normocephalic Eye exam: PRESENT: conjunctiva pink, EOMI, PERRLA. ABSENT: scleral icterus Ear exam: PRESENT: normal external ear exam Mouth exam: PRESENT: moist, tongue midline Neck exam: ABSENT: carotid bruit, JVD, lymphadenopathy, thyromegaly Respiratory exam: PRESENT: clear to auscultation anastasiya. ABSENT: rales, rhonchi, wheezes Cardiovascular exam: PRESENT: RRR. ABSENT: diastolic murmur, rubs, systolic m urmur Pulses: PRESENT: normal dorsalis pedis pul Vascular exam: PRESENT: normal capillary refill GI/Abdominal exam: PRESENT: normal bowel sounds, soft. ABSENT: distended, guarding, mass, organolmegaly, rebound, tenderness Rectal exam: PRESENT: deferred Extremities exam: PRESENT: full ROM, tenderness - R FOOT TTP. ABSENT: calf tenderness, clubbing, pedal edema Neurological exam: PRESENT: alert, awake, oriented to person, oriented to place, oriented to time, oriented to situation Psychiatric exam: PRESENT: appropriate affect, normal mood Skin exam: PRESENT: dry, intact, warm. ABSENT: cyanosis, rash Results Laboratory Results: 09/05/18 05:57 09/05/18 05:57 Impressions: Chest X-Ray 09/02/18 23:35 IMPRESSION: Cardiomegaly with chronic interstitial change copyright 2011 [employer]- All Rights Reserved Foot X-Ray 09/03/18 00:00 IMPRESSION: 1. No definite acute bony abnormality. 2. Mildly dysmorphic appearance at the proximal 4th metatarsal possibly related to remote trauma. Status: Imported from PACS Assessment and Plan - Diagnosis (1) Sickle cell anemia Qualifiers: Sickle-cell associated disorders: with unspecified crisis Qualified Code(s ): D57.00 - Hb-SS disease with crisis, unspecified; D57.0 - Hb-SS disease with crisis Is this a current diagnosis for this admission?: Yes Plan: Currently in crisis Hgb stabilized at 9.1 No need for transfusion until Hgb < 7 Consulted Heme/Onc, appreciate their recommendations Requiring Dilaudid IV 3mg q2h PRN, nursing documentation reveals that the patient has been asking for the medication every 2 hrs (2) Swelling of right lower extremity Is this a current diagnosis for this admission?: Yes Plan: Patient endorses pain and swelling of the RLE, specifically the R foot There is no pitting edema on exam CXR reveals mild dysmorphic appearance of the proximal fourth metatarsal Possible musculoskeletal manifestation of sickle cell anemia - Time Time Spent with patient: 15-24 minutes Medications reviewed and adjusted accordingly: Yes Anticipated discharge: Home - Inpatient Certification Based on my medical assessment, after consideration of the patient's comorbidities, presenting symptoms, or acuity I expect that the services needed warrant INPATIENT care.: Yes I certify that my determination is in accordance with my understanding of Medicare's requirements for reasonable and necessary INPATIENT services [42 CFR 412.3e].: Yes Medical Necessity: Risk of Complication if Not Cared For in Hospital
--- NOTE | 2018-09-06 08:17 | PDOC PROGRESS REPORT ---
Subjective Progress Note for:: 09/06/18 Subjective:: Right foot pain still fairly severe, but seems to be better than when he came in, he did have priapism last night, today I re-added Sudafed and changed the instructions on the baclofen, for this issue. We restarted his home dose of methadone. He is also having some redness and itching of both eyes that may be conjunctivitis so I started him on TobraDex. Hopefully if this improves his situation over the next 24 hours we can consider discharge tomorrow. He will need a prescription for oral oxycodone which I will have to give him tomorrow. Reason For Visit: SICKLE CELL CRISIS Physical Exam Vital Signs: Temp Pulse Resp BP Pulse Ox 97.7 F 70 16 134/90 H 98 09/06/18 03:12 09/06/18 03:12 09/06/18 03:12 09/06/18 03:12 09/06/18 03:12 Intake & Output 09/05/18 09/06/18 09/07/18 06:59 06:59 06:59 Intake Total 3530 2991 Output Total 3350 3075 Balance 180 -84 Weight 84.3 kg 85.7 kg General appearance: PRESENT: no acute distress, well-developed, well-nourished Head exam: PRESENT: atraumatic, normocephalic Eye exam: PRESENT: conjunctiva pink, EOMI, PERRLA. ABSENT: scleral icterus Ear exam: PRESENT: normal external ear exam Mouth exam: PRESENT: moist, tongue midline Neck exam: ABSENT: carotid bruit, JVD, lymphadenopathy, thyromegaly Respiratory exam: PRESENT: clear to auscultation anastasiya. ABSENT: rales, rhonchi, wheezes Cardiovascular exam: PRESENT: RRR. ABSENT: diastolic murmur, rubs, systolic murmur Pulses: PRESENT: normal dorsalis pedis pul Vascular exam: PRESENT: normal capillary refill GI/Abdominal exam: PRESENT: normal bowel sounds, soft. ABSENT: distended, guarding, mass, organolmegaly, rebound, tenderness Rectal exam: PRESENT: deferred Extremities exam: PRESENT: full ROM. ABSENT: calf tenderness, clubbing, pedal edema Neurological exam: PRESENT: alert, awake, oriented to person, oriented to place, oriented to time, oriented to situation, CN II-XII grossly intact. ABSENT: motor sensory deficit Psychiatric exam: PRESENT: appropriate affect, normal mood. ABSENT: homicidal ideation, suicidal ideation Skin exam: PRESENT: dry, intact, warm. ABSENT: cyanosis, rash Results Laboratory Results: 09/05/18 05:57 09/05/18 05:57 Impressions: Chest X-Ray 09/02/18 23:35 IMPRESSION: Cardiomegaly with chronic interstitial change copyright 2011 [email or web address]- All Rights Reserved Foot X-Ray 09/03/18 00:00 IMPRESSION: 1. No definite acute bony abnormality. 2. Mildly dysmorphic appearance at the proximal 4th metatarsal possibly related to remote trauma. 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 Qualified Code(s): D58.2 - Other hemoglobinopathies Is this a current diagnosis for this admission?: Yes Plan: Hemoglobin stable no need for transfusion (4) Priapism due to sickle cell disease Is this a current diagnosis for this admission?: Yes Plan: Added Sudafed and baclofen to his regimen (5) Conjunctivitis, both eyes Qualifiers: Conjunctivitis type: acute Acute conjunctivitis type: unspecified Qualified Code(s): H10.33 - Unspecified acute conjunctivitis, bilateral Is this a current diagnosis for this admission?: Yes Plan: Added TobraDex to his regimen - Time Time Spent with patient: 35 or more minutes - Inpatient Certification Based on my medical assessment, after consideration of the patient's comorbidities, presenting symptoms, or acuity I expect that the services needed warrant INPATIENT care.: Yes I certify that my determination is in accordance with my understanding of Medicare's requirements for reasonable and necessary INPATIENT services [42 CFR 412.3e].: Yes Medical Necessity: Need For IV Fluids, Need for Pain Control, Risk of Complic ation if Not Cared For in Hospital
[2018-09-06] MEDS ORDERED: PSEUDOEPHEDRINE HCL 30 MG TABLET PO PRN (08:20)
[2018-09-06] MEDS ORDERED: BACLOFEN 10 MG TABLET PO PRN (08:22)
[2018-09-06] MEDS: TOBRAMYCIN SULFATE/DEXAMETH OPH SUSP 2.5 ML OU SCH ×2 (10:27→21:13)
[2018-09-06] MEDS: DOCUSATE SODIUM 100 MG CAPSULE PO SCH ×2 (10:27→18:33)
[2018-09-06] MEDS: FOLIC ACID 1 MG TABLET PO SCH (10:27)
[2018-09-06] MEDS: HYDROXYUREA 500 MG CAPSULE PO SCH (10:27)
[2018-09-06 11:26] LABS: ABSOLUTE RETICS # 0.165 10^6/uL (0.028-0.122); HEMATOCRIT 26.6 % (37.9-51.0); HEMOGLOBIN 9.3 g/dL (13.5-17.0); MEAN CORPUSCULAR HEMOGLOBIN 34.3 pg (27.0-33.4); MEAN CORPUSCULAR HGB CONC 34.8 g/dL (32.0-36.0); MEAN CORPUSCULAR VOLUME 99 fl (80-97); PLATELET COUNT 239 10^3/uL (150-450); RED CELL DISTRIBUTION WIDTH 20.2 % (11.5-14.0); RETICULOCYTE COUNT (AUTO) 6.11 % (0.66-2.85); WHITE BLOOD COUNT 5.3 10^3/uL (4.0-10.5)
[2018-09-06 11:29] LABS: ANION GAP 8 (5-19); BLOOD UREA NITROGEN 7 mg/dL (7-20); CALCIUM 9.1 mg/dL (8.4-10.2); CARBON DIOXIDE 32 mmol/L (22-30); CHLORIDE 100 mmol/L (98-107); GLUCOSE 96 mg/dL (75-110); POTASSIUM 4.2 mmol/L (3.6-5.0); SODIUM 139.5 mmol/L (137-145); WHITE BLOOD COUNT 5.3 10^3/uL (4.0-10.5)
[2018-09-06 11:30] LABS: HEMATOCRIT 26.6 % (37.9-51.0); HEMOGLOBIN 9.3 g/dL (13.5-17.0); MEAN CORPUSCULAR HEMOGLOBIN 34.3 pg (27.0-33.4); MEAN CORPUSCULAR HGB CONC 34.8 g/dL (32.0-36.0); MEAN CORPUSCULAR VOLUME 99 fl (80-97); PLATELET COUNT 239 10^3/uL (150-450); RED CELL DISTRIBUTION WIDTH 20.2 % (11.5-14.0)
[2018-09-06] MEDS: METHADONE HCL 10 MG TABLET PO SCH ×3 (14:59→22:46)
[2018-09-07] MEDS: HYDROMORPHONE HCL INJ/PF 2 MG/ML AMPULE IV PRN ×9 (00:51→19:45)
[2018-09-07] MEDS: DIPHENHYDRAMINE HCL 50 MG/ML VIAL IV PRN ×3 (02:54→15:11)
[2018-09-07] MEDS: RINGERS SOLUTION,LACTATED 1,000 ML IV PRN (03:00)
[2018-09-07] MEDS: METHADONE HCL 10 MG TABLET PO SCH ×2 (05:19→14:49)
[2018-09-07 05:27] LABS: ABSOLUTE RETICS # 0.168 10^6/uL (0.028-0.122); HEMATOCRIT 25.6 % (37.9-51.0); HEMOGLOBIN 8.9 g/dL (13.5-17.0); MEAN CORPUSCULAR HEMOGLOBIN 34.3 pg (27.0-33.4); MEAN CORPUSCULAR HGB CONC 34.9 g/dL (32.0-36.0); MEAN CORPUSCULAR VOLUME 98 fl (80-97); PLATELET COUNT 188 10^3/uL (150-450); RED CELL DISTRIBUTION WIDTH 21.2 % (11.5-14.0); RETICULOCYTE COUNT (AUTO) 6.47 % (0.66-2.85); WHITE BLOOD COUNT 6.2 10^3/uL (4.0-10.5)
--- NOTE | 2018-09-07 05:48 | PDOC PROGRESS REPORT ---
Subjective Progress Note for:: 09/06/18 Subjective:: 37 y.o. M with a H sickle cell disease and seizures presented to [facility] for sickle cell crisis. The patient states the pain is worse in his right foot. Patient was seen this morning on rounds, he is resting comfortably in bed on room air. Patient still endorses persistent pain in his right foot. The foot is TTP. Pulses are palpable. There is no evidence of peripheral edema, although the patient states he thinks his foot looks swollen. Talked with Dr. Myers, who restarted the patient's methadone. Reportedly, the patient was experiencing priaprism overnight. This was reported to Dr. Myers by the patient. He was placed on Sudafed and baclofen. The patient states that his pain is manageable on the current pain regimen. Hgb 9.3. No plans for transfusion today. Continue IVF, supplemental oxygen and IV pain medication. No plans for discharge today. Will continue to manage his intractable pain. Hopefully discharge within 24 to 48 hours. Reason For Visit: SICKLE CELL CRISIS Physical Exam Vital Signs: Temp Pulse Resp BP Pulse Ox 98.5 F 73 18 139/90 H 94 09/06/18 19:15 09/06/18 19:15 09/06/18 19:15 09/06/18 19:15 09/06/18 19:15 Intake & Output 09/05/18 09/06/18 09/07/18 06:59 06:59 06:59 Intake Total 3530 2991 1875 Output Total 3350 3075 1900 Balance 180 -84 -25 Weight 84.3 kg 85.7 kg General appearance: PRESENT: no acute distress, well-developed, well-nourished Head exam: PRESENT: atraumatic, normocephalic Eye exam: PRESENT: conjunctiva pink, EOMI, PERRLA. ABSENT: scleral icterus Ear exam: PRESENT: normal external ear exam Mouth exam: PRESENT: moist, tongue midline Neck exam: ABSENT: carotid bruit, JVD, lymphadenopathy, thyromegaly Respiratory exam: PRESENT: clear to auscultation anastasiya. ABSENT: rales, rhonchi, wheezes Cardiovascular exam: PRESENT: RRR. ABSENT: diastolic murmur, rubs, systolic m urmur Pulses: PRESENT: normal dorsalis pedis pul Vascular exam: PRESENT: normal capillary refill GI/Abdominal exam: PRESENT: normal bowel sounds, soft. ABSENT: distended, guarding, mass, organolmegaly, rebound, tenderness Rectal exam: PRESENT: deferred Extremities exam: PRESENT: full ROM. ABSENT: calf tenderness, clubbing, pedal edema Musculoskeletal exam: PRESENT: ambulatory, full ROM, tenderness - R FOOT Neurological exam: PRESENT: alert, awake, oriented to person, oriented to place, oriented to time, oriented to situation, CN II-XII grossly intact. ABSENT: motor sensory deficit Psychiatric exam: PRESENT: appropriate affect, normal mood. ABSENT: homicidal ideation, suicidal ideation Skin exam: PRESENT: dry, intact, warm. ABSENT: cyanosis, rash Results Laboratory Results: 09/06/18 09:35 09/06/18 09:35 09/06/18 09/06/18 09/06/18 09:35 09:35 09:35 WBC 5.3 5.3 RBC 2.70 L 2.70 L Hgb 9.3 L 9.3 L Hct 26.6 L 26.6 L MCV 99 H 99 H MCH 34.3 H 34.3 H MCHC 34.8 34.8 RDW 20.2 H 20.2 H Plt Count 239 239 Retic Count (auto) 6.11 H Absolute Retic 0.165 H Sodium 139.5 Potassium 4.2 Chloride 100 Carbon Dioxide 32 H Anion Gap 8 BUN 7 Creatinine 0.61 Est GFR ( Amer) > 60 Est GFR (Non-Af Amer) > 60 Glucose 96 Calcium 9.1 Magnesium 1.6 Impressions: Chest X-Ray 09/02/18 23:35 IMPRESSION: Cardiomegaly with chronic interstitial change copyright 2011 [employer]- All Rights Reserved Foot X-Ray 09/03/18 00:00 IMPRESSION: 1. No definite acute bony abnormality. 2. Mildly dysmorphic appearance at the proximal 4th metatarsal possibly related to remote trauma. Status: Imported from PACS Assessment and Plan - Diagnosis (1) Sickle cell anemia Qualifiers: Sickle-cell associated disorders: with unspecified crisis Qualified Code(s): D57.00 - Hb-SS disease with crisis, unspecified; D57.0 - Hb-SS disease with crisis Is this a current diagnosis for this admission?: Yes Plan: Currently in crisis Hgb stabilized at 9.3 No need for transfusion until Hgb < 7 Consulted Heme/Onc, appreciate their recommendations Restarted today on home dose of methadone Requiring Dilaudid IV 3mg q2h PRN, nursing documentation reveals that the patient has been asking for the medication every 2 hrs (2) Swelling of right lower extremity Is this a current diagnosis for this admission?: Yes Plan: Patient endorses pain and swelling of the RLE, specifically the R foot There is no pitting edema on exam CXR reveals mild dysmorphic appearance of the proximal fourth metatarsal Possible musculoskeletal manifestation of sickle cell anemia - Time Time Spent with patient: 15-24 minutes Medications reviewed and adjusted accordingly: Yes Anticipated discharge: Home - Inpatient Certification Based on my medical assessment, after consideration of the patient's comorbidities, presenting symptoms, or acuity I expect that the services needed warrant INPATIENT care.: Yes I certify that my determination is in accordance with my understanding of Medicare's requirements for reasonable and necessary INPATIENT services [42 CFR 412.3e].: Yes Medical Necessity: Need for Pain Control, Risk of Complication if Not Cared For in Hospital
[2018-09-07] MEDS: HYDROXYUREA 500 MG CAPSULE PO SCH (09:53)
[2018-09-07] MEDS: FOLIC ACID 1 MG TABLET PO SCH (09:55)
[2018-09-07] MEDS: DOCUSATE SODIUM 100 MG CAPSULE PO SCH ×2 (09:55→17:30)
[2018-09-07] MEDS: TOBRAMYCIN SULFATE/DEXAMETH OPH SUSP 2.5 ML OU SCH (09:56)
--- NOTE | 2018-09-07 10:24 | PDOC PROGRESS REPORT ---
Subjective Progress Note for:: 09/07/18 Subjective:: Pt doing better Reason For Visit: SICKLE CELL CRISIS Physical Exam Vital Signs: Temp Pulse Resp BP Pulse Ox 98.0 F 72 19 132/71 H 99 09/07/18 07:48 09/07/18 07:48 09/07/18 07:45 09/07/18 07:48 09/07/18 07:48 Intake & Output 09/06/18 09/07/18 09/08/18 06:59 06:59 06:59 Intake Total 2991 3775 Output Total 3075 3600 900 Balance -84 175 -900 Weight 85.7 kg 84.7 kg General appearance: PRESENT: no acute distress, well-developed, well-nourished Head exam: PRESENT: atraumatic, normocephalic Eye exam: PRESENT: conjunctiva pink, EOMI, PERRLA. ABSENT: scleral icterus Ear exam: PRESENT: normal external ear exam Mouth exam: PRESENT: moist, tongue midline Neck exam: ABSENT: carotid bruit, JVD, lymphadenopathy, thyromegaly Respiratory exam: PRESENT: clear to auscultation anastasiya. ABSENT: rales, rhonchi, wheezes Cardiovascular exam: PRESENT: RRR. ABSENT: diastolic murmur, rubs, systolic murmur Pulses: PRESENT: normal dorsalis pedis pul Vascular exam: PRESENT: normal capillary refill GI/Abdominal exam: PRESENT: normal bowel sounds, soft. ABSENT: distended, guarding, mass, organolmegaly, rebound, tenderness Rectal exam: PRESENT: deferred Extremities exam: PRESENT: full ROM. ABSENT: calf tenderness, clubbing, pedal edema Neurological exam: PRESENT: alert, awake, oriented to person, oriented to place, oriented to time, oriented to situation, CN II-XII grossly intact. ABSENT: motor sensory deficit Psychiatric exam: PRESENT: appropriate affect, normal mood. ABSENT: homicidal ideation, suicidal ideation Skin exam: PRESENT: dry, intact, warm. ABSENT: cyanosis, rash Results Laboratory Results: 09/07/18 05:15 09/06/18 09:35 09/06/18 09/06/18 09/06/18 09:35 09:35 09:35 WBC 5.3 5.3 RBC 2.70 L 2.70 L Hgb 9.3 L 9.3 L Hct 26.6 L 26.6 L MCV 99 H 99 H MCH 34.3 H 34.3 H MCHC 34.8 34.8 RDW 20.2 H 20.2 H Plt Count 239 239 Retic Count (auto) 6.11 H Absolute Retic 0.165 H Sodium 139.5 Potassium 4.2 Chloride 100 Carbon Dioxide 32 H Anion Gap 8 BUN 7 Creatinine 0.61 Est GFR ( Amer) > 60 Est GFR (Non-Af Amer) > 60 Glucose 96 Calcium 9.1 Magnesium 1.6 09/07/18 05:15 WBC 6.2 RBC 2.60 L Hgb 8.9 L Hct 25.6 L MCV 98 H MCH 34.3 H MCHC 34.9 RDW 21.2 H Plt Count 188 Retic Count (auto) 6.47 H Absolute Retic 0.168 H Sodium Potassium Chloride Carbon Dioxide Anion Gap BUN Creatinine Est GFR ( Amer) Est GFR (Non-Af Amer) Glucose Calcium Magnesium Impressions: Chest X-Ray 09/02/18 23:35 IMPRESSION: Cardiomegaly with chronic interstitial change copyright 2011 [employer]- All Rights Reserved Foot X-Ray 09/03/18 00:00 IMPRESSION: 1. No definite acute bony abnormality. 2. Mildly dysmorphic appearance at the proximal 4th metatarsal possibly related to remote trauma. 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 Hemolytic anemia type: other hemoglobinopathy Qualified Code(s): D58.2 - Other hemoglobinopathies Is this a current diagnosis for this admission?: Yes Plan: Hb stable (4) Priapism due to sickle cell disease Is this a current diagnosis for this admission?: Yes Plan: Resolved (5) Conjunctivitis, both eyes Qualifiers: Conjunctivitis type: acute Acute conjunctivitis type: unspecified Qualified Code(s): H10.33 - Unspecified acute conjunctivitis, bilateral Is this a current diagnosis for this admission?: Yes Plan: Improved - Time Time Spent with patient: 15-24 minutes Anticipated discharge: Home Within: within 24 hours
[2018-09-07 20:47] VITALS: BP 149/89
--- NOTE | 2018-09-11 10:51 | PDOC DISCHARGE SUMMARY ---
General - Admit/Disc Date/PCP Admission Date/Primary Care Provider: 09/03/18 00:43 BETH STAPLETON MD Discharge Date: 09/07/18 - Discharge Diagnosis (1) Sickle cell anemia Is this a current diagnosis for this admission?: Yes - Additional Information Resuscitation Status: Full Code Discharge Diet: As Tolerated Discharge Activity: Activity As Tolerated Prescriptions: Polyethylene Glycol 3350 [Miralax Powder 17 gm/Packet] 17 gm PO DAILYP PRN #25 powd.pack PRN Reason: Tobramycin Sulfate/Dexameth [Tobradex Oph Drops 2.5 ml] 1 drop OU BID #1 bottle Home Medications: Baclofen [Baclofen 10 mg Tablet] 10 mg PO Q6HP PRN 09/03/18 Docusate Sodium [Colace 100 mg Capsule] 100 mg PO DAILY 09/03/18 Folic Acid [Folvite 1 mg Tablet] 1 mg PO DAILY 09/03/18 Hydroxyurea [Hydrea 500 mg Capsule] 1,500 mg PO MOWEFR@1000 09/03/18 Hydroxyurea [Hydrea 500 mg Capsule] 2,000 mg PO SUTUTHSA@1000 09/03/18 Ibuprofen [Motrin 600 mg Tablet] 600 mg PO Q6HP PRN 09/03/18 Methadone HCl [Dolophine HCl] 5 mg PO BID 09/03/18 Oxycodone HCl [Oxycodone HCl 10 MG Tablet] 10 mg PO Q4HP PRN 09/03/18 Pseudoephedrine HCl [Sudafed] 60 mg PO Q6HP PRN 09/03/18 Sennosides [Senna] 8.6 mg PO DAILY 09/03/18 Terbutaline Sulfate [Brethine] 5 mg PO Q6HP PRN 09/03/18 Folic Acid [Folvite 1 mg Tablet] 1 mg PO DAILY tablet 09/07/18 Hydroxyurea [Hydrea 500 mg Capsule] 1,500 mg PO MOWEFR@1000 capsule 09/07/18 Hydroxyurea [Hydrea 500 mg Capsule] 500 mg PO SUTHFRSA@1000 capsule 09/07/18 Polyethylene Glycol 3350 [Miralax Powder 17 gm/Packet] 17 gm PO DAILYP PRN #25 powd.pack 09/07/18 Tobramycin Sulfate/Dexameth [Tobradex Oph Drops 2.5 ml] 1 drop OU BID #1 bottle 09/07/18 History of Present Illness History of Present Illness: MARISA GARBER is a 37 year old male who presents with a 3-week history of right lower extremity pain. He admits a long history of sickle cell disease with intermittent crisis 1 of which he has been experiencing for the last 3 weeks. His exquisitely severe pain has been primarily in his right heel and radiating up the right leg to the right hip and has been accompanied by moderate swelling in the right lower extremity which has improved over the last day. He has mild exertional dyspnea associated with his sickle cell pain but denies other accompanying or associated symptoms. He admits numerous prior similar episodes with sickle cell crisis, though none have lasted this length of time. He has not identified any aggravating or ameliorating factors for his pain other than Dilaudid which does improve his pain for short time. In the emergency room he was found to have a hemoglobin of 9.5 and mild hypokalemia and hypocalcemia. With these findings and the recommendation of Dr. Stapleton that the patient be admitted he was subsequently admitted to the hospital for further evaluation and treatment of his sickle cell crisis. Hospital Course Hospital Course: 37 y.o. M with a H sickle cell disease and seizures presented to [facility] for sickle cell crisis. The patient was hoping that this would be a low level crisis pain that he could manage at home, but ultimately got so severe that he came to the ED. He was given IV pain medication and hydration as well as had a lower extremity ultrasound which was negative for DVT. He went home but the pain increased. He returned to the ED and was admitted to [facility] at the request of his planer off bearer, Dr. Myers. The patient's pain was treated with IV dilaudid. Patient endorsed pain and swelling of the RLE, specifically the R foot. There was no pitting edema on exam. According to the patient, it seemed to resolve with rest and extremity elevation.. XRAY reveals mild dysmorphic appearance of the proximal fourth metatarsal. Likely musculoskeletal manifestation of sickle cell anemia. The patient was also experiencing nocturnal priaprism. This was reported to Dr. Myers by the patient. He was placed on Sudafed and baclofen. After 4 days at [facility], the patient reported that his pain had decreased to an acceptable level. The patient was discharged home with a prescription for oxycodone (written by Dr. Myers). Additionally, the patient was given a prescription for Tobradex eye drops for the patient's conjunctivitis and Miralax to prevent constipation while taking daily narcotics. Physical Exam Vital Signs: Temp Pulse Resp BP Pulse Ox 97.9 F 84 19 149/89 H 98 09/07/18 19:47 09/07/18 19:47 09/07/18 17:54 09/07/18 20:15 09/07/18 19:47 Results Laboratory Results: 09/07/18 05:15 09/06/18 09:35 Impressions: Chest X-Ray 09/02/18 23:35 IMPRESSION: Cardiomegaly with chronic interstitial change copyright 2011 [employer]- All Rights Reserved Foot X-Ray 09/03/18 00:00 IMPRESSION: 1. No definite acute bony abnormality. 2. Mildly dysmorphic appearance at the proximal 4th metatarsal possibly related to remote trauma. Status: Imported from PACS Qualifiers - * PATIENT BEING DISCHARGED WITH ANY OF THE FOLLOWING DIAGNOSIS: No Acute Heart Failure Is this a Heart Failure Patient?: No
== END 2018-09-07 20:40 | disposition home or self-care (01) | DRG 812 ==
LOC: ER 20:44 → OBSVTOIN 09-03 00:43 → EH 09-03 00:43 → 2N 09-03 01:51
PROVIDERS: ADMIT Emergency Medicine; ATTEND Emergency Medicine
DX: D57.00 Hb-SS disease with crisis, unspecified (principal); N48.30 Priapism, unspecified; E87.6 Hypokalemia; E83.51 Hypocalcemia; H10.33 Unspecified acute conjunctivitis, bilateral; F32.9 Major depressive disorder, single episode, unspecified; M79.661 Pain in right lower leg; M79.89 Other specified soft tissue disorders; Z90.49 Acquired absence of other specified parts of digestive tract; Z79.899 Other long term (current) drug therapy; Z88.0 Allergy status to penicillin; Z88.1 Allergy status to other antibiotic agents; Z91.040 Latex allergy status; Z88.5 Allergy status to narcotic agent; Z91.018 Allergy to other foods
CPT/HCPCS: 36415; 71045; 80048; 80053; 83735; 85025; 85027; 85045; 93971; 96361; 96374; 96375; 96376; 99285; J1170; J1200; J1642; J3490; J7030; J7120

== ENCOUNTER 2018-09-10 03:22 | Emergency (ER) | payer MEDICARE, MEDICAID ==
[2018-09-10] MEDS ORDERED: DIPHENHYDRAMINE HCL 50 MG/ML VIAL IV ONE ×2 (04:07→08:46)
--- NOTE | 2018-09-10 04:12 | ER Document Report ---
ED General - General Chief Complaint: Sickle Cell Crisis Stated Complaint: FOOT PAIN Primary Care Provider: BETH STAPLETON MD [Primary Care Provider] - Follow up as needed Notes: Patient is a 37-year-old male with a history of sickle cell anemia that comes to the emergency department for chief complaint of generalized body aches and pain in his right leg and foot. He denies injury, fever, difficulty breathing, chest pain. He states that his leg was swollen, a lot more than now, he had a negative Doppler, he was recently admitted to the hospital for this as well. He states he went home about 4 to 5 days ago. He admits that he stands on his leg throughout the day with his job. His at home pain medications were not working so he came to the emergency department he reports. TRAVEL OUTSIDE OF THE [place] IN LAST 30 DAYS: No - Related Data Allergies/Adverse Reactions: famotidine [From Pepcid] Allergy (Severe, Verified 09/01/18 07:01) Anaphylaxis ketorolac tromethamine [From Toradol] Allergy (Severe, Verified 09/01/18 07:01) levofloxacin [From Levaquin] Allergy (Severe, Verified 09/01/18 07:01) meperidine HCl [From Demerol] Allergy (Severe, Verified 09/01/18 07:01) morphine [Morphine] Allergy (Severe, Verified 09/01/18 07:01) tramadol HCl [From Ultram] Allergy (Severe, Verified 09/01/18 07:01) amoxicillin [Amoxicillin] Allergy (Verified 09/01/18 07:01) fentanyl [Fentanyl] Allergy (Verified 09/01/18 07:01) latex [Latex] Allergy (Verified 09/01/18 07:01) ondansetron HCl [From Zofran] Allergy (Verified 09/01/18 07:01) Pork/Porcine Containing Products Allergy (Verified 07/13/18 03:47) Past Medical History - General Information source: Patient - Social History Smoking Status: Never Smoker Chew tobacco use (# tins/day): No Frequency of alcohol use: None Drug Abuse: None Lives with: Family Family History: Reviewed & Not Pertinent, Other Patient has suicidal ideation: No Patient has homicidal ideation: No - Past Medical History Cardiac Medical History: Denies: Hx Atrial Fibrillation, Hx Congestive Heart Failure, Hx Coronary Artery Disease Pulmonary Medical History: Reports: Hx Pneumonia Denies: Hx Asthma, Hx Bronchitis, Hx COPD, Hx Tuberculosis Neurological Medical History: Reports: Hx Seizures. Denies: Hx Migraine Endocrine Medical History: Denies: Hx Diabetes Mellitus Type 1, Hx Diabetes Mellitus Type 2 Renal/ Medical History: Denies: Hx Peritoneal Dialysis GI Medical History: Denies: Hx Cirrhosis, Hx Hepatitis Musculoskeletal Medical History: Denies Hx Arthritis, Denies Hx Gout, Reports Hx Musculoskeletal Deformity - right hip avascular necrosis Skin Medical History: Denies Hx Eczema, Denies Hx Psoriasis Psychiatric Medical History: Reports: Hx Depression Infectious Medical History: Denies: Hx Hepatitis Past Surgical History: Reports: Hx Appendectomy, Hx Vascular Surgery - L port placement, Other - Port placement - Immunizations Immunizations up to date: Yes Hx Diphtheria, Pertussis, Tetanus Vaccination: Yes Hx Pneumococcal Vaccination: 02/20/11 Review of Systems - Review of Systems Constitutional: See HPI EENT: No symptoms reported Cardiovascular: No symptoms reported Respiratory: No symptoms reported Gastrointestinal: No symptoms reported Genitourinary: No symptoms reported Male Genitourinary: No symptoms reported Musculoskeletal: See HPI Skin: No symptoms reported Hematologic/Lymphatic: No symptoms reported Neurological/Psychological: No symptoms reported Physical Exam - Vital signs Vitals: Temp Pulse Resp BP Pulse Ox 98.4 F 64 20 140/86 H 96 09/10/18 03:30 09/10/18 03:30 09/10/18 03:30 09/10/18 03:30 09/10/18 03:30 - Notes Notes: GENERAL: Alert, interacts well. No acute distress. HEAD: Normocephalic, atraumatic. EYES: Pupils equal, round, and reactive to light. Extraocular movements intact. ENT: Oral mucosa moist, tongue midline. Oropharynx unremarkable. Airway patent. Nares patent, no nasal septal hematoma, TM's intact. NECK: Full range of motion. Supple. Trachea midline. LUNGS: Clear to auscultation bilaterally, no wheezes, rales, or rhonchi. No respiratory distress. HEART: Regular rate and rhythm. No murmur ABDOMEN: Soft, non-tender. Non-distended. Bowel sounds present in all 4 quadrants. GENITOURINARY: Deferred EXTREMITIES: Moves all 4 extremities spontaneously. No edema, normal radial and dorsalis pedis pulses bilaterally. No cyanosis. BACK: no cervical, thoracic, lumbar midline tenderness. No saddle anesthesia, normal distal neurovascular exam. NEUROLOGICAL: Alert and oriented x3. Normal speech. Cranial nerves II through XII grossly intact. PSYCH: Normal affect, normal mood. SKIN: Warm, dry, normal turgor. No rashes or lesions noted. Course - Re-evaluation Re-evalutation: Patient with no chest pain or shortness of breath suggesting acute chest syndrome. No hypoxia, tachycardia, or fever either. He has generalized pain and leg pain. Leg is significantly improved compared to the last time I saw the patient, there is no noted edema, erythema, or significant swelling. CBC shows anemia although this is unchanged from prior. Reticulocyte count is slightly elevated compared to prior. Bilirubin is slightly elevated compared to prior as well. CBC and chemistry unremarkable otherwise. Because of patient's pain and elevated reticulocyte count I discussed admission. On reevaluation patient reports he feels improved but not completely better, unsure if he wants to stay or go yet. He will be redosed. - Vital Signs Vital signs: Temp Pulse Resp BP Pulse Ox 98.0 F 63 18 125/79 95 09/10/18 06:54 09/10/18 06:54 09/10/18 06:54 09/10/18 06:54 09/10/18 06:54 - Laboratory Result Diagrams: 09/10/18 04:35 09/10/18 04:35 Laboratory results interpreted by me: 09/10/18 09/10/18 04:35 04:35 RBC 2.54 L Hgb 8.9 L Hct 25.5 L MCV 100 H MCH 35.0 H RDW 21.9 H Plt Count 141 L Monocytes % (Manual) 14 H Retic Count (auto) 8.35 H Absolute Retic 0.211 H Total Bilirubin 2.5 H Discharge - Discharge Clinical Impression: Sickle cell pain crisis, Right leg pain Condition: Stable Disposition: HOME, SELF-CARE Additional Instructions: Continue your current medications at home. Rest. Follow-up closely with your primary care provider. Return if you worsen including severe worsening pain, shortness of breath, chest pain, or any other concerning or worsening symptoms. Referrals: BETH STAPLETON MD [Primary Care Provider] - Follow up as needed
[2018-09-10] MEDS: HYDROMORPHONE HCL INJ/PF 2 MG/ML AMPULE IV PRN ×3 (04:37→08:49)
[2018-09-10 05:13] LABS: ABSOLUTE RETICS # 0.211 10^6/uL (0.028-0.122); RETICULOCYTE COUNT (AUTO) 8.35 % (0.66-2.85)
[2018-09-10 05:26] LABS: ALANINE AMINOTRANSFERASE 47 U/L (21-72); ALBUMIN 3.9 g/dL (3.5-5.0); ALKALINE PHOSPHATASE 79 U/L (38-126); ANION GAP 11 (5-19); ASPARTATE AMINO TRANSFERASE 57 U/L (17-59); BILIRUBIN,DIRECT 0.4 mg/dL (0.0-0.4); BILIRUBIN,TOTAL 2.5 mg/dL (0.2-1.3); BLOOD UREA NITROGEN 15 mg/dL (7-20); CALCIUM 8.5 mg/dL (8.4-10.2); CARBON DIOXIDE 27 mmol/L (22-30); CHLORIDE 104 mmol/L (98-107); GLUCOSE 95 mg/dL (75-110); POTASSIUM 3.8 mmol/L (3.6-5.0); SODIUM 141.6 mmol/L (137-145); TOTAL PROTEIN 7.9 g/dL (6.3-8.2)
[2018-09-10 05:29] LABS: HEMATOCRIT 25.5 % (37.9-51.0); HEMOGLOBIN 8.9 g/dL (13.5-17.0); MEAN CORPUSCULAR VOLUME 100 fl (80-97); RED BLOOD COUNT 2.54 10^6/uL (4.35-5.55); WHITE BLOOD COUNT 5.4 10^3/uL (4.0-10.5)
[2018-09-10 05:30] LABS: MEAN CORPUSCULAR HGB CONC 34.9 g/dL (32.0-36.0); PLATELET COUNT 141 10^3/uL (150-450); RED CELL DISTRIBUTION WIDTH 21.9 % (11.5-14.0)
[2018-09-10 05:48] LABS: ABSOLUTE LYMPHOCYTES# (MANUAL) 1.8 10^3/uL (0.5-4.7); ABSOLUTE MONOCYTES # (MANUAL) 0.8 10^3/uL (0.1-1.4); ABSOLUTE NEUTROPHILS# (MANUAL) 2.5 10^3/uL (1.7-8.2); BASOPHILS % (MANUAL) 1 % (0-2); EOSINOPHILS % (MANUAL) 5 % (0-6); LYMPHOCYTES % (MANUAL) 33 % (13-45); MONOCYTES % (MANUAL) 14 % (3-13); NUCLEATED RED BLOOD CELLS 4 /100 WBC (0); SEGMENTED NEUTROPHILS % (MAN) 46 % (42-78); TOTAL CELLS COUNTED 100
[2018-09-10 05:52] LABS: HYPOCHROMASIA 2+; PLATELET COMMENT DECREASED; POLYCHROMASIA 1+
[2018-09-10 05:53] LABS: ANISOCYTOSIS 3+; BURR CELLS 1+; HOWELL-JOLLY BODIES PRESENT; OVALOCYTES 1+; POIKILOCYTOSIS 2+; SCHISTOCYTES SLIGHT; TARGET CELLS 2+
[2018-09-10 05:54] LABS: SICKLE RED CELLS 2+
[2018-09-10 09:52] VITALS: BP 119/75
== END 2018-09-10 09:30 | disposition home or self-care (01) ==
LOC: ER 03:22
DX: D57.00 Hb-SS disease with crisis, unspecified (principal); M79.604 Pain in right leg; M79.10 Myalgia, unspecified site; M79.671 Pain in right foot; Z79.899 Other long term (current) drug therapy
CPT/HCPCS: 36591; 96376; 99284; 96374; 96375; 36415; 85025; 85045; 80053; J1200; J1170; J1642

== ENCOUNTER 2018-09-16 03:37 | Emergency (ER) | payer MEDICARE, MEDICAID ==
[2018-09-16] MEDS ORDERED: NORMAL SALINE 1000 ML 1,000 ML IV ONE ×3 (04:21→08:18)
[2018-09-16] MEDS ORDERED: HYDROMORPHONE HCL INJ/PF 2 MG/ML AMPULE IV ONE ×3 (04:30→07:29)
[2018-09-16] MEDS ORDERED: DIPHENHYDRAMINE HCL 50 MG/ML VIAL IV ONE ×2 (04:30→07:29)
[2018-09-16 05:10] LABS: ABSOLUTE RETICS # 0.313 10^6/uL (0.028-0.122); HEMATOCRIT 25.3 % (37.9-51.0); HEMOGLOBIN 8.7 g/dL (13.5-17.0); MEAN CORPUSCULAR HEMOGLOBIN 34.9 pg (27.0-33.4); MEAN CORPUSCULAR HGB CONC 34.4 g/dL (32.0-36.0); MEAN CORPUSCULAR VOLUME 102 fl (80-97); PLATELET COUNT 315 10^3/uL (150-450); RED BLOOD COUNT 2.49 10^6/uL (4.35-5.55); RED CELL DISTRIBUTION WIDTH 22.6 % (11.5-14.0); RETICULOCYTE COUNT (AUTO) 12.57 % (0.66-2.85); WHITE BLOOD COUNT 6.5 10^3/uL (4.0-10.5)
--- NOTE | 2018-09-16 05:17 | ER Document Report ---
ED General Pain - General Chief Complaint: Sickle Cell Crisis Stated Complaint: BODY ACHES Time Seen by Provider: 09/16/18 04:20 Mode of Arrival: Ambulatory Information source: Patient Notes: Patient is a 37-year-old male with sickle cell trait presenting to the emergency department with back pain, joint pain and bilateral rib pain. Patient reports symptoms started at approximately 1:00 this morning. He states these are the areas he usually has discomfort with a sickle cell crisis. He denies any chest pain. He does report mild shortness of breath. He denies any nausea, vomiting, diarrhea or fevers. TRAVEL OUTSIDE OF THE [place] IN LAST 30 DAYS: No - Related Data Allergies/Adverse Reactions: famotidine [From Pepcid] Allergy (Severe, Verified 09/01/18 07:01) Anaphylaxis ketorolac tromethamine [From Toradol] Allergy (Severe, Verified 09/01/18 07:01) levofloxacin [From Levaquin] Allergy (Severe, Verified 09/01/18 07:01) meperidine HCl [From Demerol] Allergy (Severe, Verified 09/01/18 07:01) morphine [Morphine] Allergy (Severe, Verified 09/01/18 07:01) tramadol HCl [From Ultram] Allergy (Severe, Verified 09/01/18 07:01) amoxicillin [Amoxicillin] Allergy (Verified 09/01/18 07:01) fentanyl [Fentanyl] Allergy (Verified 09/01/18 07:01) latex [Latex] Allergy (Verified 09/01/18 07:01) ondansetron HCl [From Zofran] Allergy (Verified 09/01/18 07:01) Pork/Porcine Containing Products Allergy (Verified 07/13/18 03:47) Past Medical History - General Information source: Patient - Social History Smoking Status: Never Smoker Drug Abuse: None Lives with: Alone Family History: Reviewed & Not Pertinent, Other Patient has suicidal ideation: No Patient has homicidal ideation: No - Past Medical History Cardiac Medical History: Denies: Hx Atrial Fibrillation, Hx Congestive Heart Failure, Hx Coronary Artery Disease Pulmonary Medical History: Reports: Hx Pneumonia Denies: Hx Asthma, Hx Bronchitis, Hx COPD, Hx Tuberculosis Neurological Medical History: Reports: Hx Seizures. Denies: Hx Migraine Endocrine Medical History: Denies: Hx Diabetes Mellitus Type 1, Hx Diabetes Mellitus Type 2 Renal/ Medical History: Denies: Hx Peritoneal Dialysis GI Medical History: Denies: Hx Cirrhosis, Hx Hepatitis Musculoskeletal Medical History: Denies Hx Arthritis, Denies Hx Gout, Reports Hx Musculoskeletal Deformity - right hip avascular necrosis Skin Medical History: Denies Hx Eczema, Denies Hx Psoriasis Psychiatric Medical History: Reports: Hx Depression Infectious Medical History: Denies: Hx Hepatitis Past Surgical History: Reports: Hx Appendectomy, Hx Vascular Surgery - L port placement, Other - Port placement - Immunizations Immunizations up to date: Yes Hx Diphtheria, Pertussis, Tetanus Vaccination: Yes Hx Pneumococcal Vaccination: 02/20/11 Review of Systems - Review of Systems Constitutional: No symptoms reported EENT: No symptoms reported Cardiovascular: No symptoms reported Respiratory: Short of breath Gastrointestinal: No symptoms reported Genitourinary: No symptoms reported Male Genitourinary: No symptoms reported Musculoskeletal: See HPI Skin: No symptoms reported Hematologic/Lymphatic: No symptoms reported Neurological/Psychological: No symptoms reported Physical Exam - Vital signs Vitals: Temp Pulse Resp BP Pulse Ox 98.2 F 72 18 114/66 96 09/16/18 03:38 09/16/18 03:38 09/16/18 03:38 09/16/18 03:38 09/16/18 03:38 - Notes Notes: PHYSICAL EXAMINATION: GENERAL: Well-appearing, well-nourished and in no acute distress. HEAD: Atraumatic, normocephalic. EYES: Pupils equal round and reactive to light, extraocular movements intact, sclera anicteric, conjunctiva are normal. ENT: Nares patent, oropharynx clear without exudates. Moist mucous membranes. NECK: Normal range of motion, supple without lymphadenopathy LUNGS: Breath sounds clear to auscultation bilaterally and equal. No wheezes rales or rhonchi. HEART: Regular rate and rhythm without murmurs ABDOMEN: Soft, nontender, nondistended abdomen. No guarding, no rebound. No masses appreciated. Musculoskeletal: Normal range of motion, no pitting or edema. No cyanosis. NEUROLOGICAL: Cranial nerves grossly intact. Normal speech, normal gait. Normal sensory, motor exams PSYCH: Normal mood, normal affect. SKIN: Warm, Dry, normal turgor, no rashes or lesions noted. Course - Re-evaluation Re-evalutation: 09/16/18 07:58 Chest x-ray is negative. Reticulocyte count is 12.57, absolute reticulocyte count is 0.313. Patient has had 2 L of IV fluids and several rounds of IV pain medications. At this point I did asked patient how he is feeling and gave him the option of being admitted or trying 1/3 L of fluids as well as additional medications. Patient reports he is feeling slightly improved and would like to have 1 more liter of fluids and try additional medications prior to agreeing to be admitted. Orders will be placed. Handoff will be given to oncoming dayshift in the event that patient has to be admitted. - Vital Signs Vital signs: Temp Pulse Resp BP Pulse Ox 98.1 F 63 16 115/66 100 09/16/18 09:35 09/16/18 09:35 09/16/18 09:35 09/16/18 09:35 09/16/18 09:35 - Laboratory Result Diagrams: 09/16/18 04:46 09/16/18 04:46 Laboratory results interpreted by me: 09/16/18 09/16/18 04:46 04:46 RBC 2.49 L Hgb 8.7 L Hct 25.3 L MCV 102 H MCH 34.9 H RDW 22.6 H Retic Count (auto) 12.57 H Absolute Retic 0.313 H Total Bilirubin 1.9 H Discharge - Discharge Clinical Impression: Sickle cell crisis, Joint pain Condition: Stable Disposition: HOME, SELF-CARE Additional Instructions: You were seen and treated today for sickle cell crisis. Please follow-up with your primary care provider as discussed. Return to the emergency department with any new or worsening symptoms.
[2018-09-16 05:24] LABS: ALANINE AMINOTRANSFERASE 29 U/L (21-72); ALBUMIN 4.2 g/dL (3.5-5.0); ALKALINE PHOSPHATASE 74 U/L (38-126); ANION GAP 11 (5-19); ASPARTATE AMINO TRANSFERASE 38 U/L (17-59); BILIRUBIN,DIRECT 0.3 mg/dL (0.0-0.4); BILIRUBIN,TOTAL 1.9 mg/dL (0.2-1.3); BLOOD UREA NITROGEN 12 mg/dL (7-20); CALCIUM 8.5 mg/dL (8.4-10.2); CARBON DIOXIDE 27 mmol/L (22-30); CHLORIDE 105 mmol/L (98-107); GLUCOSE 103 mg/dL (75-110); POTASSIUM 4.1 mmol/L (3.6-5.0); SODIUM 142.5 mmol/L (137-145); TOTAL PROTEIN 7.6 g/dL (6.3-8.2)
[2018-09-16 05:35] LABS: ABSOLUTE LYMPHOCYTES# (MANUAL) 2.3 10^3/uL (0.5-4.7); ABSOLUTE MONOCYTES # (MANUAL) 0.7 10^3/uL (0.1-1.4); ABSOLUTE NEUTROPHILS# (MANUAL) 3.3 10^3/uL (1.7-8.2); BASOPHILS % (MANUAL) 2 % (0-2); EOSINOPHILS % (MANUAL) 2 % (0-6); LYMPHOCYTES % (MANUAL) 32 % (13-45); MONOCYTES % (MANUAL) 11 % (3-13); NUCLEATED RED BLOOD CELLS 11 /100 WBC (0); PLATELET COMMENT ADEQUATE; SEGMENTED NEUTROPHILS % (MAN) 50 % (42-78); TOTAL CELLS COUNTED 100
[2018-09-16 05:39] LABS: HYPOCHROMASIA SLIGHT; POLYCHROMASIA 2+
[2018-09-16 05:40] LABS: ANISOCYTOSIS 3+; HELMET CELLS SLIGHT; OVALOCYTES 2+; POIKILOCYTOSIS 2+; SCHISTOCYTES 1+; SICKLE RED CELLS 2+
[2018-09-16 05:41] LABS: HOWELL-JOLLY BODIES PRESENT; STOMATOCYTES SLIGHT
[2018-09-16 05:42] LABS: TARGET CELLS 3+
--- NOTE | 2018-09-16 05:55 | RADIOLOGY REPORT (SQ) ---
CLINICAL HISTORY: shortness of breath COMPARISON: September 02, 2018. TECHNIQUE: XR CHEST 1 VIEW 09/16/2018 5:32 AM CDT FINDINGS: The heart is mildly enlarged. There is mild pulmonary edema. There are interstitial bibasilar opacities. There is no pleural effusion. There is no pneumothorax. There are no acute osseous findings. Left chest port is unchanged. IMPRESSION: No change.
[2018-09-16 09:35] VITALS: BP 115/66
[2018-09-18] MEDS ORDERED: POTASSIUM CHLORIDE 10 MEQ CAPSULE.ER PO SCH (08:00)
== END 2018-09-16 09:36 | disposition home or self-care (01) ==
LOC: ER 03:37
DX: D57.1 Sickle-cell disease without crisis (principal); M25.50 Pain in unspecified joint; M54.9 Dorsalgia, unspecified
CPT/HCPCS: 36591; 96376; 99284; 96361; 96374; 96375; 36415; 85025; 85045; 80053; 71045; J1200; J1170; J7030; J1642

== ENCOUNTER 2018-09-19 04:17 | Emergency (ER) | payer MEDICARE, MEDICAID ==
[2018-09-19 04:29] VITALS: BP 131/78
[2018-09-19] MEDS ORDERED: NORMAL SALINE 1000 ML 1,000 ML IV ONE (07:51)
--- NOTE | 2018-09-19 08:04 | ER Document Report ---
Entered by JENA KILPATRICK SCRIBE 09/19/18 0759 Acting as scribe for:REED LEMA MD ED General - General Chief Complaint: Sickle Cell Crisis Stated Complaint: BODY PAIN Time Seen by Provider: 09/19/18 07:38 Primary Care Provider: BETH STAPLETON MD [Primary Care Provider] - Follow up as needed Mode of Arrival: Ambulatory Information source: Patient Notes: Patient is a 37 year old male with sickle cell anemia presents to the emergency department complaining of generalized body pain. Patient states he woke up this morning diaphoretic with back pain, rib pain and joint pain. He states he proceeded to drink some cold water and take his pain medications which did not help his symptoms. He also mentions having chronic right heel pain. He denies any nausea or vomiting. Patient, who frequents this emergency department, presented 3 days ago complaining of identical symptoms. Patient is prescribed 10 mg oxycodone (6 times daily), 5 mg of methadone (twice daily). TRAVEL OUTSIDE OF THE [place] IN LAST 30 DAYS: No - Related Data Allergies/Adverse Reactions: famotidine [From Pepcid] Allergy (Severe, Verified 09/01/18 07:01) Anaphylaxis ketorolac tromethamine [From Toradol] Allergy (Severe, Verified 09/01/18 07:01) levofloxacin [From Levaquin] Allergy (Severe, Verified 09/01/18 07:01) meperidine HCl [From Demerol] Allergy (Severe, Verified 09/01/18 07:01) morphine [Morphine] Allergy (Severe, Verified 09/01/18 07:01) tramadol HCl [From Ultram] Allergy (Severe, Verified 09/01/18 07:01) amoxicillin [Amoxicillin] Allergy (Verified 09/01/18 07:01) fentanyl [Fentanyl] Allergy (Verified 09/01/18 07:01) latex [Latex] Allergy (Verified 09/01/18 07:01) ondansetron HCl [From Zofran] Allergy (Verified 09/01/18 07:01) Pork/Porcine Containing Products Allergy (Verified 07/13/18 03:47) Past Medical History - General Information source: Patient - Social History Smoking Status: Never Smoker Cigarette use (# per day): No Chew tobacco use (# tins/day): No Smoking Education Provided: No Frequency of alcohol use: None Occupation: [employer] Family History: Reviewed & Not Pertinent Pulmonary Medical History: Reports: Hx Pneumonia Neurological Medical History: Reports: Hx Seizures Musculoskeletal Medical History: Reports Hx Musculoskeletal Deformity - right hip avascular necrosis Psychiatric Medical History: Reports: Hx Depression Past Surgical History: Reports: Hx Appendectomy, Hx Vascular Surgery - L port placement, Other - Port placement - Immunizations Immunizations up to date: Yes Hx Diphtheria, Pertussis, Tetanus Vaccination: Yes Hx Pneumococcal Vaccination: 02/20/11 Review of Systems - Review of Systems Constitutional: See HPI EENT: No symptoms reported Cardiovascular: No symptoms reported Respiratory: No symptoms reported Gastrointestinal: No symptoms reported Genitourinary: No symptoms reported Male Genitourinary: No symptoms reported Musculoskeletal: See HPI Skin: No symptoms reported Hematologic/Lymphatic: No symptoms reported Neurological/Psychological: No symptoms reported -: Yes All other systems reviewed and negative Physical Exam - Vital signs Vitals: Temp Pulse Resp BP Pulse Ox 98.2 F 76 18 131/78 H 95 09/19/18 04:25 09/19/18 04:25 09/19/18 04:25 09/19/18 04:25 09/19/18 04:25 - Notes Notes: GENERAL: Appears to be initially sleeping when walking into the room. Alert, interacts well. No acute distress. HEAD: Normocephalic, atraumatic. EYES: Pupils equal, round, and reactive to light. Extraocular movements intact. ENT: Oral mucosa moist, tongue midline. NECK: Full range of motion. Supple. Trachea midline. LUNGS: Clear to auscultation bilaterally, no wheezes, rales, or rhonchi. No respiratory distress. HEART: Regular rate and rhythm. No murmurs, gallops, or rubs. ABDOMEN: Soft, non-tender. Non-distended. Bowel sounds present in all 4 quadrant s. No guarding, rigidity, or rebound. EXTREMITIES: Moves all 4 extremities spontaneously. No edema, radial and dorsalis pedis pulses 2/4 bilaterally. No cyanosis. NEUROLOGICAL: Alert and oriented x3. Normal speech. PSYCH: Normal affect, normal mood. SKIN: Warm, dry, normal turgor. No rashes or lesions noted. Course - Re-evaluation Re-evalutation: 09/19/18 09:04 Review of lab work compared to 3 days ago shows the Chem-12 to be unchanged, including the BUN and creatinine. The hemoglobin is slightly higher today. The reticulocyte count is significantly lower today. At this time the patient is contacting the nurse repeatedly about pain medication, reporting a 5/5 pain. He has been here just over 4 hours, and he do es normally take 10 mg of oxycodone every 4 hours in addition to his methadone. He was resting quite comfortably and actually seem to be asleep when he was first seen, so it is very unlikely that any of his discomfort is actually due to bone ischemia at this time. 09/19/18 11:00 Awaiting check on the patient. He was sleeping. His pulse was in the upper 60s. I woke him up to tell him the good news about his lab work and that he would be able to be discharged home. He is not vomiting and is able to keep plenty of fluids down so he does not need IV fluids. He has plenty of narcotic pain medication at home so he does not need additional IV narcotics. He then began talking about his foot pain, I told him that is a chronic problem, we cannot fix that in the emergency room and he had been told in the past that the only solution is to stay off the foot. He has a job that requires him to stand, I told him that is a dilemma that we cannot solve here in the emergency room. - Vital Signs Vital signs: Temp Pulse Resp BP Pulse Ox 98.2 F 76 18 131/78 H 95 09/19/18 04:25 09/19/18 04:25 09/19/18 04:25 09/19/18 04:25 09/19/18 04:25 - Laboratory Result Diagrams: 09/19/18 08:30 09/19/18 08:30 Laboratory results interpreted by me: 09/19/18 09/19/18 08:30 08:30 RBC 2.56 L Hgb 9.1 L Hct 25.5 L MCV 100 H MCH 35.6 H RDW 22.0 H Plt Count 510 H Retic Count (auto) 9.05 H Absolute Retic 0.232 H Total Bilirubin 1.6 H - Consults Dr. Stapleton Time consulted: 09:06 Consulted provider: other - Recommends hydration, IV Dilaudid 3 mg doses, and admit if unable to make pain-free. Discharge - Discharge Clinical Impression: Generalized pain, Opiate dependence, continuous, Chronic pain in right foot Sickle cell anemia Qualifiers: Sickle-cell associated disorders: with unspecified crisis Qualified Code(s): D57.00 - Hb-SS disease with crisis, unspecified Condition: Stable Disposition: HOME, SELF-CARE Additional Instructions: Be sure to drink plenty of fluids throughout the day in the evening while you are at home. Continue your regular pain medication regimen. Try to stay off of the right foot is much as possible to allow the pain in that foot to improve. Follow-up with your primary care or your tipple greaser on Saturday for recheck if not getting better. RETURN TO THE EMERGENCY ROOM IF ANY NEW OR WORSENING SYMPTOMS. Referrals: BETH STAPLETON MD [Primary Care Provider] - Follow up as needed Scribe Attestation: 09/19/18 08:21 I personally performed the services described in the documentation, reviewed and edited the documentation which was dictated to the scribe in my presence, and it accurately records my words and actions. I personally performed the services described in the documentation, reviewed and edited the documentation which was dictated to the scribe in my presence, and it accurately records my words and actions.
[2018-09-19 08:40] LABS: ABSOLUTE RETICS # 0.232 10^6/uL (0.028-0.122); HEMATOCRIT 25.5 % (37.9-51.0); HEMOGLOBIN 9.1 g/dL (13.5-17.0); MEAN CORPUSCULAR HEMOGLOBIN 35.6 pg (27.0-33.4); MEAN CORPUSCULAR HGB CONC 35.7 g/dL (32.0-36.0); MEAN CORPUSCULAR VOLUME 100 fl (80-97); PLATELET COUNT 510 10^3/uL (150-450); RED BLOOD COUNT 2.56 10^6/uL (4.35-5.55); RETICULOCYTE COUNT (AUTO) 9.05 % (0.66-2.85); WHITE BLOOD COUNT 6.7 10^3/uL (4.0-10.5)
[2018-09-19 08:52] LABS: ABSOLUTE LYMPHOCYTES# (MANUAL) 1.7 10^3/uL (0.5-4.7); ABSOLUTE MONOCYTES # (MANUAL) 0.6 10^3/uL (0.1-1.4); ABSOLUTE NEUTROPHILS# (MANUAL) 4.2 10^3/uL (1.7-8.2); BASOPHILS % (MANUAL) 2 % (0-2); EOSINOPHILS % (MANUAL) 1 % (0-6); LYMPHOCYTES % (MANUAL) 26 % (13-45); MONOCYTES % (MANUAL) 9 % (3-13); NUCLEATED RED BLOOD CELLS 8 /100 WBC (0); SEGMENTED NEUTROPHILS % (MAN) 62 % (42-78); TOTAL CELLS COUNTED 100
[2018-09-19 08:57] LABS: ANISOCYTOSIS 3+; OVALOCYTES SLIGHT; POIKILOCYTOSIS 2+; POLYCHROMASIA 1+; SCHISTOCYTES 1+; SICKLE RED CELLS 1+; TARGET CELLS 1+
[2018-09-19 08:58] LABS: ALANINE AMINOTRANSFERASE 29 U/L (21-72); ALBUMIN 4.1 g/dL (3.5-5.0); ALKALINE PHOSPHATASE 69 U/L (38-126); ANION GAP 9 (5-19); ASPARTATE AMINO TRANSFERASE 34 U/L (17-59); BILIRUBIN,DIRECT 0.3 mg/dL (0.0-0.4); BILIRUBIN,TOTAL 1.6 mg/dL (0.2-1.3); BLOOD UREA NITROGEN 10 mg/dL (7-20); CALCIUM 9.1 mg/dL (8.4-10.2); CARBON DIOXIDE 27 mmol/L (22-30); CHLORIDE 106 mmol/L (98-107); CREATINE KINASE 69 U/L (55-170); GLUCOSE 89 mg/dL (75-110); HOWELL-JOLLY BODIES PRESENT; PAPPENHEIMER BODIES PRESENT; POTASSIUM 4.1 mmol/L (3.6-5.0); SODIUM 142.3 mmol/L (137-145); TEAR DROP CELLS SLIGHT; TOTAL PROTEIN 7.7 g/dL (6.3-8.2)
[2018-09-19 08:59] LABS: PLATELET COMMENT INCREASED; PLATELET LARGE PRESENT
[2018-09-19] MEDS ORDERED: HYDROMORPHONE HCL INJ/PF 2 MG/ML AMPULE IV ONE (09:13)
[2018-09-19] MEDS ORDERED: DIPHENHYDRAMINE HCL 50 MG/ML VIAL IV ONE (09:13)
[2018-09-19 09:43] LABS: APPEARANCE,URINE CLEAR; BILIRUBIN,URINE NEGATIVE (NEGATIVE); COLOR,URINE YELLOW; GLUCOSE, URINE NEGATIVE (NEGATIVE); KETONES,URINE NEGATIVE (NEGATIVE); LEUKOCYTE ESTERASE,URINE NEGATIVE (NEGATIVE); NITRITE,URINE NEGATIVE (NEGATIVE); PROTEIN,URINE NEGATIVE (NEGATIVE); UROBILINOGEN,URINE NEGATIVE mg/dL (<2.0)
== END 2018-09-19 11:29 | disposition home or self-care (01) ==
LOC: ER 04:17
DX: K57.00 Diverticulitis of small intestine with perforation and abscess without bleeding (principal); M54.9 Dorsalgia, unspecified; M25.50 Pain in unspecified joint; R07.81 Pleurodynia; M79.671 Pain in right foot; G89.29 Other chronic pain; F11.20 Opioid dependence, uncomplicated; Z87.892 Personal history of anaphylaxis; Z88.8 Allergy status to other drugs, medicaments and biological substances; Z88.1 Allergy status to other antibiotic agents; Z88.5 Allergy status to narcotic agent; Z88.0 Allergy status to penicillin; Z91.040 Latex allergy status; Z91.018 Allergy to other foods
CPT/HCPCS: 36591; 99284; 96361; 96374; 96375; 36415; 82550; 85025; 85045; 80053; 81001; 83605; J1200; J1170; J7030; J1642

== ENCOUNTER 2018-09-24 02:38 | Emergency (ER) | payer MEDICARE, MEDICAID ==
[2018-09-24 08:27] LABS: ABSOLUTE RETICS # 0.245 10^6/uL (0.028-0.122); HEMATOCRIT 28.4 % (37.9-51.0); HEMOGLOBIN 9.7 g/dL (13.5-17.0); MEAN CORPUSCULAR HEMOGLOBIN 33.4 pg (27.0-33.4); MEAN CORPUSCULAR HGB CONC 34.1 g/dL (32.0-36.0); MEAN CORPUSCULAR VOLUME 98 fl (80-97); PLATELET COUNT 651 10^3/uL (150-450); RED CELL DISTRIBUTION WIDTH 19.9 % (11.5-14.0); RETICULOCYTE COUNT (AUTO) 8.46 % (0.66-2.85); WHITE BLOOD COUNT 5.5 10^3/uL (4.0-10.5)
[2018-09-24 09:09] LABS: ABSOLUTE LYMPHOCYTES# (MANUAL) 2.1 10^3/uL (0.5-4.7); ABSOLUTE MONOCYTES # (MANUAL) 0.2 10^3/uL (0.1-1.4); ABSOLUTE NEUTROPHILS# (MANUAL) 3.1 10^3/uL (1.7-8.2); ANISOCYTOSIS 2+; BASOPHILS % (MANUAL) 0 % (0-2); EOSINOPHILS % (MANUAL) 1 % (0-6); LYMPHOCYTES % (MANUAL) 39 % (13-45); MONOCYTES % (MANUAL) 4 % (3-13); POIKILOCYTOSIS 2+; SEGMENTED NEUTROPHILS % (MAN) 56 % (42-78); TOTAL CELLS COUNTED 100
[2018-09-24 09:12] LABS: SICKLE RED CELLS 2+; TARGET CELLS 2+
[2018-09-24 09:13] LABS: PLATELET COMMENT INCREASED
[2018-09-24 09:15] LABS: ALANINE AMINOTRANSFERASE 27 U/L (21-72); ALKALINE PHOSPHATASE 58 U/L (38-126); ANION GAP 7 (5-19); ASPARTATE AMINO TRANSFERASE 33 U/L (17-59); BILIRUBIN,DIRECT 0.3 mg/dL (0.0-0.4); BILIRUBIN,TOTAL 1.9 mg/dL (0.2-1.3); BLOOD UREA NITROGEN 9 mg/dL (7-20); CALCIUM 8.9 mg/dL (8.4-10.2); CARBON DIOXIDE 29 mmol/L (22-30); CHLORIDE 106 mmol/L (98-107); GLUCOSE 80 mg/dL (75-110); TOTAL PROTEIN 7.5 g/dL (6.3-8.2)
[2018-09-24] MEDS ORDERED: DIPHENHYDRAMINE HCL 50 MG/ML VIAL IV ONE ×3 (09:44→13:24)
[2018-09-24] MEDS ORDERED: HYDROMORPHONE HCL INJ/PF 2 MG/ML AMPULE IV ONE ×3 (09:44→13:24)
--- NOTE | 2018-09-24 10:12 | ER Document Report ---
ED General - General Chief Complaint: Sickle Cell Crisis Stated Complaint: BODY PAIN Time Seen by Provider: 09/24/18 09:14 Primary Care Provider: BETH STAPLETON MD [Primary Care Provider] - Follow up as needed TRAVEL OUTSIDE OF THE [place] IN LAST 30 DAYS: No - HPI Notes: Patient is a 37-year-old male who presents to the emergency department with a chief complaint of generalized muscle pain and chest discomfort. Patient states that he woke up from his sleep around 2 AM this morning with midsternal sharp constant chest pain that radiates into his back. Patient states this is been constant since waking up. Patient states the chest pain is worse with deep breathing and movement. Patient also complaint of muscle pain all over and bilateral rib pain. Patient states he normally does not have chest pain with a sickle cell crises. Patient does report shortness of breath and states it feels like it is hard for him to get a deep breath. Patient denies fever. Patient denies nausea vomiting or diarrhea. Patient is on Oxycodone 10 mg 6 times daily as needed for pain and Methadone 5 mg every 6 hours for pain. Patient states he did take both of these around 2 AM this morning. - Related Data Allergies/Adverse Reactions: famotidine [From Pepcid] Allergy (Severe, Verified 09/24/18 08:20) Anaphylaxis ketorolac tromethamine [From Toradol] Allergy (Severe, Verified 09/24/18 08:20) levofloxacin [From Levaquin] Allergy (Severe, Verified 09/24/18 08:20) meperidine HCl [From Demerol] Allergy (Severe, Verified 09/24/18 08:20) morphine [Morphine] Allergy (Severe, Verified 09/24/18 08:20) tramadol HCl [From Ultram] Allergy (Severe, Verified 09/24/18 08:20) amoxicillin [Amoxicillin] Allergy (Verified 09/24/18 08:20) fentanyl [Fentanyl] Allergy (Verified 09/24/18 08:20) latex [Latex] Allergy (Verified 09/24/18 08:20) ondansetron HCl [From Zofran] Allergy (Verified 09/24/18 08:20) Pork/Porcine Containing Products Allergy (Verified 09/24/18 08:20) Past Medical History - General Information source: Patient - Social History Smoking Status: Never Smoker Frequency of alcohol use: None Drug Abuse: Prescription drugs Lives with: Family Family History: Reviewed & Not Pertinent Patient has suicidal ideation: No Patient has homicidal ideation: No - Past Medical History Cardiac Medical History: Reports: None Denies: Hx Atrial Fibrillation, Hx Congestive Heart Failure, Hx Coronary Artery Disease Pulmonary Medical History: Reports: Hx Pneumonia Denies: Hx Asthma, Hx Bronchitis, Hx COPD, Hx Tuberculosis EENT Medical History: Reports: None Neurological Medical History: Reports: Hx Seizures. Denies: Hx Migraine Endocrine Medical History: Reports: None. Denies: Hx Diabetes Mellitus Type 1, Hx Diabetes Mellitus Type 2 Renal/ Medical History: Reports: None. Denies: Hx Peritoneal Dialysis Malignancy Medical History: Reports None GI Medical History: Reports: None. Denies: Hx Cirrhosis, Hx Hepatitis Musculoskeletal Medical History: Denies Hx Arthritis, Denies Hx Gout, Reports Hx Musculoskeletal Deformity - right hip avascular necrosis Skin Medical History: Reports None, Denies Hx Eczema, Denies Hx Psoriasis Psychiatric Medical History: Reports: Hx Depression Traumatic Medical History: Reports: None Infectious Medical History: Reports: None. Denies: Hx Hepatitis Past Surgical History: Reports: Hx Appendectomy, Hx Vascular Surgery - L port placement, Other - Port placement - Immunizations Immunizations up to date: Yes Hx Diphtheria, Pertussis, Tetanus Vaccination: Yes Hx Pneumococcal Vaccination: 02/20/11 Review of Systems - Review of Systems Constitutional: No symptoms reported EENT: No symptoms reported Cardiovascular: See HPI Respiratory: See HPI Gastrointestinal: No symptoms reported Genitourinary: No symptoms reported Male Genitourinary: No symptoms reported Musculoskeletal: See HPI Skin: No symptoms reported Hematologic/Lymphatic: No symptoms reported Neurological/Psychological: No symptoms reported Physical Exam - Vital signs Vitals: Temp Pulse Resp BP Pulse Ox 98.4 F 67 22 H 147/99 H 95 09/24/18 02:44 09/24/18 02:44 09/24/18 02:44 09/24/18 02:44 09/24/18 02:44 Interpretation: Hypertensive - Notes Notes: GENERAL: Well-appearing, well-nourished and in no acute distress. HEAD: Atraumatic, normocephalic. EYES: Pupils equal round and reactive to light, extraocular movements intact, sc christine anicteric, conjunctiva are normal. ENT: Nares patent, oropharynx clear without exudates. Moist mucous membranes. NECK: Normal range of motion, supple without lymphadenopathy or JVD. LUNGS: Breath sounds clear to auscultation bilaterally and equal. No wheezes rales or rhonchi. HEART: Regular rate and rhythm without murmurs, rubs or gallops. Reproducible chest pain throughout chest. ABDOMEN: Soft, nontender, normoactive bowel sounds. No guarding, no rebound. No masses appreciated. BACK: No cervical, thoracic, lumbar midline tenderness. No saddle anesthesia, normal distal neurovascular exam. GENITOURINARY: Deferred. EXTREMITIES: Normal range of motion, no pitting or edema. No clubbing or cyanosis. NEUROLOGICAL: Cranial nerves II through XII grossly intact. Normal speech, normal gait. PSYCH: Normal mood, normal affect. SKIN: Warm, Dry, normal turgor, no rashes or lesions noted. Course - Re-evaluation Re-evalutation: 09/24/18 09:45 Upon initial evaluation patient resting comfortably on stretcher, currently rep orts mid sternal chest pain that radiates into his mid back. Patient requesting pain medication. Labs pending. Will add chest XRAY and EKG due to chest pain complaint. 09/24/18 11:08 Patient is resting comfortably on stretcher. Patient continues to complain of chest pain, rib pain, back pain and muscle pain. Will give another dose of pain medication. 09/24/18 12:03 Patient reports feeling better, rating his discomfort 3/5. Patient is sitting upright on stretcher, breathing even and unlabored, tolerating PO. 09/24/18 13:01 Patient has been tolerating PO. Reporting overall discomfort 3/5. 09/24/18 14:20 Patient reporting discomfort 3/5. States feeling much more comfortable and f eels okay to be discharged. Patient is resting comfortably on stretcher. 09/24/18 14:[address] Stapleton in regards to patient's lab work, specifically elevated platelet count. He is not concerned with this finding, can discharge patient if pain is controlled. To follow up with Vignesh or return to emergency department if symptoms worsen. I did discuss this case with Dr. Richardson who has removed the chart and is in agreement with discharge plan. - Vital Signs Vital signs: Temp Pulse Resp BP Pulse Ox 98.4 F 67 18 122/80 96 09/24/18 02:44 09/24/18 02:44 09/24/18 16:11 09/24/18 16:11 09/24/18 16:11 - Laboratory Result Diagrams: 09/24/18 08:10 09/24/18 08:10 Laboratory results interpreted by me: 09/24/18 09/24/18 08:10 08:10 RBC 2.90 L Hgb 9.7 L Hct 28.4 L MCV 98 H RDW 19.9 H Plt Count 651 H Retic Count (auto) 8.46 H Absolute Retic 0.245 H Total Bilirubin 1.9 H 09/24/18 The retake count 8.46 is elevated but has decreased since his visit at the end of August. Patient also has an elevated platelet count of 651 which is increased since last visit, I did discuss these results with Dr. Stapleton who is aware and does not require any more orders. Patient's hemoglobin is 9.7 which is consistent with his previous visits. Total bilirubin is 1.9. - Diagnostic Test Radiology reviewed: Reports reviewed Radiology results interpreted by me: 09/24/18 11:57 Chest x-ray shows chronic parenchymal changes. Chronic vascular congestion. No acute interval change. - EKG Interpretation by Me Additional EKG results interpreted by me: 09/24/18 19:37 Patient's EKG shows a normal sinus rhythm with a heart rate of 65. Patient's GA interval 176, QT 396, QTc 412. Patient does have left ventricular hypertrophy. There are no ST changes in consecutive leads. There appears to be no change from previous EKG I did review the EKG with Dr. Richardson. Discharge - Discharge Clinical Impression: Sickle cell anemia with pain, Generalized pain Joint pain Qualifiers: Joint pain location: unspecified Qualified Code(s): M25.50 - Pain in unspecified joint Condition: Stable Disposition: HOME, SELF-CARE Additional Instructions: Today you were seen in the emergency department for sickle cell pain. Your lab lab work, EKG, chest x-ray were unremarkable. Your pain has been more controlled with doses of IV pain medications and he feel comfortable going home. Please follow-up with Dr. Stapleton for the sickle cell and return to the emergency department for any worsening signs or symptoms to include worsening chest pain, shortness of breath, headache, fever or any other concerning signs or symptoms. Continue your pain medication home regimen. Do not drive or operate heavy machinery while on narcotic pain medications. Sickle Cell Crisis You have "sickle cell crisis." Sickle cell disease is caused by abnormal hemoglobin. This hemoglobin can deform red blood cells into a sickle shape. These abnormal blood cells can block blood vessels. This causes the pain of sick le cell crisis. Sickle cell crisis can occur any time. But attacks are more likely with acute infection, dehydration, or altitude change. A crisis usually causes pain in the legs, back, abdomen, and chest. Sometimes the pain may ease and return later. The usual treatment is oxygen, pain medication, IV fluids, and treatment of infection. Attacks may take a couple of days to resolve. Return if the pain becomes more severe, or if there are new symptoms. Referrals: BETH STAPLETON MD [Primary Care Provider] - Follow up as needed
--- NOTE | 2018-09-24 10:42 | RADIOLOGY REPORT (SQ) ---
EXAM DESCRIPTION: CHEST 2 VIEWS COMPLETED DATE/TIME: 09/24/2018 10:26 am REASON FOR STUDY: chest pain COMPARISON: 09/16/2018 EXAM PARAMETERS: NUMBER OF VIEWS: two views TECHNIQUE: Digital Frontal and Lateral radiographic views of the chest acquired. RADIATION DOSE: NA LIMITATIONS: none FINDINGS: LUNGS AND PLEURA: Chronic basilar opacity. Interstitial changes are stable. MEDIASTINUM AND HILAR STRUCTURES: No masses or contour abnormalities. HEART AND VASCULAR STRUCTURES: Heart enlarged with chronic vascular congestion. BONES: No acute findings. HARDWARE: None in the chest. OTHER: No other significant finding. IMPRESSION: Chronic parenchymal changes. Chronic vascular congestion. No acute interval change. TECHNICAL DOCUMENTATION: JOB ID: [id number] [employer]- All Rights Reserved Reading location - IP/workstation name: [email or web address]
[2018-09-24] MEDS ORDERED: NORMAL SALINE 1000 ML 1,000 ML IV ONE (11:14)
--- NOTE | 2018-09-24 13:30 | EKG REPORT ---
SEVERITY:- ABNORMAL ECG - SINUS RHYTHM PROBABLE LEFT ATRIAL ABNORMALITY LEFT VENTRICULAR HYPERTROPHY ANTERIOR Q WAVES, POSSIBLY DUE TO LVH : Confirmed by: Emre Montoya MD 24-Sep-2018 13:29:50
[2018-09-24 14:04] LABS: APPEARANCE,URINE CLEAR; BILIRUBIN,URINE NEGATIVE (NEGATIVE); COLOR,URINE YELLOW; GLUCOSE, URINE NEGATIVE (NEGATIVE); KETONES,URINE NEGATIVE (NEGATIVE); LEUKOCYTE ESTERASE,URINE NEGATIVE (NEGATIVE); NITRITE,URINE NEGATIVE (NEGATIVE); PROTEIN,URINE NEGATIVE (NEGATIVE); URINE SPECIFIC GRAVITY 1.011; UROBILINOGEN,URINE NEGATIVE mg/dL (<2.0)
[2018-09-24 16:15] VITALS: BP 122/80
== END 2018-09-24 16:16 | disposition home or self-care (01) ==
LOC: ER 02:38
DX: D57.1 Sickle-cell disease without crisis (principal); M79.10 Myalgia, unspecified site; M25.50 Pain in unspecified joint; R07.81 Pleurodynia; M54.9 Dorsalgia, unspecified; R06.02 Shortness of breath; I51.7 Cardiomegaly; Z88.8 Allergy status to other drugs, medicaments and biological substances; Z88.1 Allergy status to other antibiotic agents; Z88.5 Allergy status to narcotic agent; Z88.0 Allergy status to penicillin; Z91.040 Latex allergy status; Z91.018 Allergy to other foods
CPT/HCPCS: 36591; 96376; 99284; 96361; 96374; 96375; 36415; 85025; 85045; 80053; 81001; 71046; 93005; 93010; J1200; J1170; J7030; J1642

== ENCOUNTER 2018-09-25 14:11 | Outpatient (CLI) | payer MEDICARE, MEDICAID ==
[2018-09-25] MEDS ORDERED: DIPHENHYDRAMINE HCL 25 MG in NORMAL SALINE 50 ML IV PRN (14:31)
[2018-09-25] MEDS ORDERED: NORMAL SALINE 1000 ML 1,000 ML IV PRN (14:32)
[2018-09-25] MEDS ORDERED: HYDROMORPHONE HCL INJ/PF 2 MG/ML AMPULE IV PRN (14:33)
[2018-09-25 15:07] VITALS: BP 134/87
== END 2018-09-25 16:19 | disposition home or self-care (01) ==
LOC: II 14:11 → 5TH 14:24 → II 16:19
PROVIDERS: ATTEND Internal Medicine
PROC: 3E0437Z Introduction of Electrolytic and Water Balance Substance into Central Vein, Percutaneous Approach (ICD-10-PCS; principal; 2018-09-25)
PROC: 3E043GC Introduction of Other Therapeutic Substance into Central Vein, Percutaneous Approach (ICD-10-PCS; 2018-09-25)
DX: D57.1 Sickle-cell disease without crisis (principal); E86.0 Dehydration; R52 Pain, unspecified
CPT/HCPCS: 96365; 96374; 96360; J1200; J1170; J1642; 96361; 96375

== ENCOUNTER 2018-09-29 10:12 | Outpatient (CLI) | payer MEDICARE, MEDICAID ==
[2018-09-29] MEDS ORDERED: DIPHENHYDRAMINE HCL 25 MG in NORMAL SALINE 50 ML IV PRN (10:37)
[2018-09-29] MEDS ORDERED: NORMAL SALINE 1000 ML @ AS DIRECTED IV PRN (10:38)
[2018-09-29] MEDS ORDERED: HYDROMORPHONE HCL INJ/PF 2 MG/ML AMPULE IV PRN (10:39)
[2018-09-29] MEDS ORDERED: HYDROMORPHONE HCL INJ/PF 2 MG/ML AMPULE ONE (10:46)
[2018-09-29] MEDS ORDERED: DIPHENHYDRAMINE HCL 50 MG/ML VIAL ONE (10:46)
[2018-09-29 13:13] VITALS: BP 129/73
== END 2018-09-29 13:25 | disposition home or self-care (01) ==
LOC: II 10:12 → 2N 10:14 → II 13:25
PROVIDERS: ATTEND Internal Medicine
PROC: 3E033GC Introduction of Other Therapeutic Substance into Peripheral Vein, Percutaneous Approach (ICD-10-PCS; principal; 2018-09-29)
PROC: 3E0337Z Introduction of Electrolytic and Water Balance Substance into Peripheral Vein, Percutaneous Approach (ICD-10-PCS; 2018-09-29)
DX: D57.1 Sickle-cell disease without crisis (principal); E86.0 Dehydration; R52 Pain, unspecified
CPT/HCPCS: J1200; J1170; J7030; J1642; 96361; 96365; 96375

== ENCOUNTER 2018-10-01 13:28 | Outpatient (CLI) | payer MEDICARE, MEDICAID ==
[~2018-10-01 13:28] MED LIST changes: -NORMAL SALINE 1000 ML 1,000 ML IV PRN; +NORMAL SALINE 1000 ML @ AS DIRECTED IV PRN
[2018-10-01 14:05] VITALS: BP 118/82
== END 2018-10-01 15:30 | disposition home or self-care (01) ==
LOC: II 13:28 → 5TH 13:33 → II 15:30
PROVIDERS: ATTEND Internal Medicine
PROC: 3E04305 Introduction of Other Antineoplastic into Central Vein, Percutaneous Approach (ICD-10-PCS; principal; 2018-10-01)
PROC: 3E0433Z Introduction of Anti-inflammatory into Central Vein, Percutaneous Approach (ICD-10-PCS; 2018-10-01)
PROC: 3E043GC Introduction of Other Therapeutic Substance into Central Vein, Percutaneous Approach (ICD-10-PCS; 2018-10-01)
DX: D57.1 Sickle-cell disease without crisis (principal); E86.0 Dehydration; R52 Pain, unspecified
CPT/HCPCS: 96365; 96375; 96361; J1200; J1170; J1642; 96360; 96374

== ENCOUNTER 2018-10-06 02:35 | Emergency (ER) | payer MEDICARE, MEDICAID ==
[2018-10-06] MEDS ORDERED: NORMAL SALINE 1000 ML 1,000 ML IV ONE (03:15)
[2018-10-06] MEDS ORDERED: HYDROMORPHONE HCL INJ/PF 2 MG/ML AMPULE IV ONE ×3 (03:16→05:32)
[2018-10-06] MEDS ORDERED: DIPHENHYDRAMINE HCL 50 MG/ML VIAL IV ONE ×2 (03:17→05:32)
--- NOTE | 2018-10-06 03:24 | ER Document Report ---
ED General - General Chief Complaint: Pain All Over Stated Complaint: SICKEL CELL Time Seen by Provider: 10/06/18 03:09 Primary Care Provider: BETH STAPLETON MD [Primary Care Provider] - Follow up as needed Notes: Patient is a pleasant 37-year-old male well-known to me. He has history of sickle cell disease and presents to the ER frequently for pain. He does have history of acute chest syndrome. He still has a spleen. Still has his gallbladder. He presents with complaint of pain in all his joints. He says he does have some low rib pain bilaterally. Says he does feel mild dyspnea compared to his baseline. No fevers. Today no vomiting. Pain started around 9 PM. He has had some mild runny nose and congestion. He is followed by Dr. 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 TRAVEL OUTSIDE OF THE [place] IN LAST 30 DAYS: No - Related Data Allergies/Adverse Reactions: famotidine [From Pepcid] Allergy (Severe, Verified 10/06/18 02:39) Anaphylaxis ketorolac tromethamine [From Toradol] Allergy (Severe, Verified 10/06/18 02:39) levofloxacin [From Levaquin] Allergy (Severe, Verified 10/06/18 02:39) meperidine HCl [From Demerol] Allergy (Severe, Verified 10/06/18 02:39) morphine [Morphine] Allergy (Severe, Verified 10/06/18 02:39) tramadol HCl [From Ultram] Allergy (Severe, Verified 10/06/18 02:39) amoxicillin [Amoxicillin] Allergy (Verified 10/06/18 02:39) fentanyl [Fentanyl] Allergy (Verified 10/06/18 02:39) latex [Latex] Allergy (Verified 10/06/18 02:39) ondansetron HCl [From Zofran] Allergy (Verified 10/06/18 02:39) Pork/Porcine Containing Products Allergy (Verified 10/06/18 02:39) Past Medical History - Social History Smoking Status: Never Smoker Chew tobacco use (# tins/day): No Frequency of alcohol use: None Drug Abuse: None Family History: Reviewed & Not Pertinent Patient has suicidal ideation: No Patient has homicidal ideation: No - Past Medical History Cardiac Medical History: Denies: Hx Atrial Fibrillation, Hx Congestive Heart Failure, Hx Coronary Artery Disease Pulmonary Medical History: Reports: Hx Pneumonia Denies: Hx Asthma, Hx Bronchitis, Hx COPD, Hx Tuberculosis Neurological Medical History: Reports: Hx Seizures. Denies: Hx Migraine Endocrine Medical History: Denies: Hx Diabetes Mellitus Type 1, Hx Diabetes Mellitus Type 2 Renal/ Medical History: Denies: Hx Peritoneal Dialysis GI Medical History: Denies: Hx Cirrhosis, Hx Hepatitis Musculoskeletal Medical History: Denies Hx Arthritis, Denies Hx Gout, Reports Hx Musculoskeletal Deformity - right hip avascular necrosis Skin Medical History: Denies Hx Eczema, Denies Hx Psoriasis Psychiatric Medical History: Reports: Hx Depression Infectious Medical History: Denies: Hx Hepatitis Past Surgical History: Reports: Hx Appendectomy, Hx Vascular Surgery - L port placement, Other - Port placement - Immunizations Immunizations up to date: Yes Hx Diphtheria, Pertussis, Tetanus Vaccination: Yes Hx Pneumococcal Vaccination: 02/20/11 Review of Systems - Review of Systems Notes: My Normal Review Basic REVIEW OF SYSTEMS: CONSTITUTIONAL : Denies fever, chills, or sweats. Denies recent illness. EENT: Nasal congestion CARDIOVASCULAR: Rib pain RESPIRATORY: Denies cough, cold, or chest congestion. Denies shortness of breath, difficulty breathing, or wheezing. GASTROINTESTINAL: Denies abdominal pain. Denies nausea, vomiting, or diarrhea. GENITOURINARY: Denies difficulty urinating, painful urination, burning, frequency, or blood in urine. MUSCULOSKELETAL: Right and rib pain SKIN: Denies rash or skin lesions. HEMATOLOGIC : Sickle cell disease NEUROLOGICAL: Denies altered mental status or loss of consciousness. Denies headache. Denies weakness or paralysis or loss of use of either side. Denies problems with gait or speech. Denies sensory or motor loss. ALL OTHER SYSTEMS REVIEWED AND NEGATIVE. Physical Exam - Vital signs Vitals: Temp Pulse Resp BP Pulse Ox 98.3 F 71 16 124/69 92 10/06/18 02:42 10/06/18 02:42 10/06/18 02:42 10/06/18 02:42 10/06/18 02:42 - Notes Notes: General Appearance: Well nourished, alert, cooperative, no acute distress, moderate obvious discomfort. Vitals: reviewed, See vital signs table. Head: no swelling or tenderness to the head Eyes: PERRL, EOMI, Conjuctiva clear Mouth: No decreasd moisture Neck: Supple, no neck tenderness Lungs: No wheezing, No rales, No rhonci, No accessory muscle use, good air exchange bilaterally. Heart: Normal rate, Regular rythm, No murmur, no rub Abdomen: Normal BS, soft, No rigidity, mild diffuse abdominal tenderness to palpation, No guarding, no rebound, no abdominal masses, no organomegaly Extremities: strength 5/5 in all extremities, good pulses in all extremities, no swelling or tenderness in the extremities, no edema. Skin: warm, dry, appropriate color, no rash Neuro: speech clear, oriented x 3, normal affect, responds appropriately to questions. Course - Re-evaluation Re-evalutation: 10/06/18 03:24 In triage his O2 sats was 92%. I did place him on a monitor without oxygen. His room air saturation on monitor is between 94 and 95% with a good pleth. 10/06/18 04:48 Patient's pain is improving some but he still hurting and therefore I ordered a second dose of pain medicine. 10/06/18 05:33 Patient's pain continues gradually improved. He still has some pain that is mainly in his right hip. This is location with avascular necrosis of the hip. He does have some itching. We will give him a dose of Benadryl and 1 more dose pain medicine. I informed him that if he still having significant pain then we should strongly consider admission. If his pain is much improved and he wants to go home at that time then will consider discharge. Patient agrees with plan and will give 1 more dose of pain medicine and Benadryl. 10/06/18 06:21 His pain is now much improved. I talked to him at length about disposition. Currently his observation patient is not too concerning. He does not have a leukocytosis. He does have anemia but is not far off his baseline. His hemoglobin is usually in the low nines and his hemoglobin today is 8.8. His reticulocyte count is elevated as expected. His chemistry panel just shows some mild hypokalemia but otherwise does not show any concerning findings. At this time if from objective standpoint feel the patient is safe to be discharged home as long as pain is well controlled. I informed the patient that if he feels that his still hurting or his pain is not controlled that he should stay in hospital and I be happy to admit him. Patient says that feels that his pain is improved enough and he wants to try to go home. He says he agrees to return to ER if his pain starts to worsen or if he feels unwell in any way. I strongly encouraged him return to ER immediately if he has worsening pain, fevers, diffi culty breathing, or if he feels unwell. He did feel mildly dyspneic when he first arrived however I do not suspect acute chest syndrome as he does not have fever, he does not have leukocytosis, and he does not have an infiltrative process on his chest x-ray. Patient's oxygenation is 94 to 94% on room air and his lung stevens are clear. Dictation of this chart was performed using voice recognition software; therefore, there may be some unintended grammatical errors. - Vital Signs Vital signs: Temp Pulse Resp BP Pulse Ox 98.3 F 71 13 184/93 H 98 10/06/18 02:42 10/06/18 02:42 10/06/18 06:01 10/06/18 06:01 10/06/18 06:01 - Laboratory Result Diagrams: 10/06/18 03:50 10/06/18 03:50 Laboratory results interpreted by me: 10/06/18 10/06/18 03:50 03:50 RBC 2.51 L Hgb 8.8 L Hct 25.1 L MCV 100 H MCH 34.9 H RDW 22.2 H Retic Count (auto) 9.32 H Absolute Retic 0.234 H Potassium 3.4 L Glucose 123 H Total Bilirubin 1.8 H - EKG Interpretation by Me Additional EKG results interpreted by me: 10/06/18 04:37 EKG is reviewed and interpreted by me. EKG shows sinus rhythm with a rate of [address] segment elevation or depression. No ischemic T wave inversions. [place] interval, QRS duration, QT intervals are within normal range. Old EKG for comparison is from September 24, 2018. Discharge - Discharge Clinical Impression: Sickle cell pain crisis Sickle cell anemia Qualifiers: Sickle-cell associated disorders: with unspecified crisis Qualified Code(s): D57.00 - Hb-SS disease with crisis, unspecified; D57.0 - Hb-SS disease with crisis Condition: Good Disposition: HOME, SELF-CARE Additional Instructions: Please rest over the next 24 hours. Please try to stay away from work and just rest at home. Please drink lots of liquids and stay well-hydrated. Take your home pain medicine as prescribed. Please follow-up closely with your biotech production specialist, Dr. Stapleton, please have a low threshold to return to the ER if you have intractable pain, fevers, difficulty breathing, or feel unwell. Referrals: BETH STAPLETON MD [Primary Care Provider] - Follow up tomorrow
--- NOTE | 2018-10-06 04:01 | RADIOLOGY REPORT (SQ) ---
EXAM DESCRIPTION: X-ray single view chest. CLINICAL HISTORY: 37 years Male, dyspnea COMPARISON: 09/24/2018 and 09/16/2018 as well as 06/06/2018 TECHNIQUE: Single portable x-ray view of the chest performed on 10/06/2018 at 3:30 AM FINDINGS: Lungs are well expanded. There are chronic fibrotic changes in the lung bases. No focal airspace consolidation is identified. There is no evidence of a pneumothorax. The cardiac silhouette is stable and mildly enlarged. The mediastinal contours are normal. No acute osseous abnormality is identified. No focal soft tissue abnormalities are seen. Lines and tubes: There is a stable left-sided Jcoxlo-f-Fxwy catheter. The tip projects over the region of the superior vena cava. IMPRESSION: 1. No evidence of acute intrathoracic disease. 2. Stable fibrotic changes in the lung bases. 3. Stable left sided Ejggyl-v-Uecm catheter.
[2018-10-06 04:44] LABS: ABSOLUTE RETICS # 0.234 10^6/uL (0.028-0.122); HEMATOCRIT 25.1 % (37.9-51.0); HEMOGLOBIN 8.8 g/dL (13.5-17.0); MEAN CORPUSCULAR HEMOGLOBIN 34.9 pg (27.0-33.4); MEAN CORPUSCULAR HGB CONC 34.9 g/dL (32.0-36.0); MEAN CORPUSCULAR VOLUME 100 fl (80-97); PLATELET COUNT 216 10^3/uL (150-450); RED BLOOD COUNT 2.51 10^6/uL (4.35-5.55); RED CELL DISTRIBUTION WIDTH 22.2 % (11.5-14.0); RETICULOCYTE COUNT (AUTO) 9.32 % (0.66-2.85); WHITE BLOOD COUNT 6.7 10^3/uL (4.0-10.5)
[2018-10-06 04:51] LABS: ABSOLUTE LYMPHOCYTES# (MANUAL) 2.7 10^3/uL (0.5-4.7); ABSOLUTE MONOCYTES # (MANUAL) 0.3 10^3/uL (0.1-1.4); BASOPHILS % (MANUAL) 1 % (0-2); EOSINOPHILS % (MANUAL) 2 % (0-6); LYMPHOCYTES % (MANUAL) 40 % (13-45); MONOCYTES % (MANUAL) 4 % (3-13); NUCLEATED RED BLOOD CELLS 6 /100 WBC (0); SEGMENTED NEUTROPHILS % (MAN) 53 % (42-78); TOTAL CELLS COUNTED 100
[2018-10-06 04:53] LABS: ANISOCYTOSIS 3+; PLATELET COMMENT ADEQUATE; POIKILOCYTOSIS 1+; POLYCHROMASIA 1+
[2018-10-06 04:54] LABS: SCHISTOCYTES SLIGHT; SICKLE RED CELLS 2+; TARGET CELLS 2+
[2018-10-06 05:09] LABS: ALANINE AMINOTRANSFERASE 25 U/L (21-72); ALKALINE PHOSPHATASE 70 U/L (38-126); ANION GAP 8 (5-19); ASPARTATE AMINO TRANSFERASE 36 U/L (17-59); BILIRUBIN,DIRECT 0.3 mg/dL (0.0-0.4); BILIRUBIN,TOTAL 1.8 mg/dL (0.2-1.3); BLOOD UREA NITROGEN 18 mg/dL (7-20); CALCIUM 8.7 mg/dL (8.4-10.2); CARBON DIOXIDE 29 mmol/L (22-30); CHLORIDE 103 mmol/L (98-107); GLUCOSE 123 mg/dL (75-110); POTASSIUM 3.4 mmol/L (3.6-5.0); SODIUM 140.1 mmol/L (137-145); TOTAL PROTEIN 7.7 g/dL (6.3-8.2)
[2018-10-06] MEDS ORDERED: POTASSIUM CHLORIDE 10 MEQ CAPSULE.ER PO ONE (05:29)
--- NOTE | 2018-10-06 06:37 | EKG REPORT ---
SEVERITY:- BORDERLINE ECG - SINUS RHYTHM BORDERLINE T WAVE ABNORMALITIES : Confirmed by: Emre Montoya MD 06-Oct-2018 06:36:29
[2018-10-06 06:53] VITALS: BP 129/89
== END 2018-10-06 07:04 | disposition home or self-care (01) ==
LOC: ER 02:35
DX: D57.00 Hb-SS disease with crisis, unspecified (principal); R07.81 Pleurodynia; E87.6 Hypokalemia; R06.00 Dyspnea, unspecified; R10.817 Generalized abdominal tenderness; R09.81 Nasal congestion; M25.551 Pain in right hip; L29.9 Pruritus, unspecified; R09.89 Other specified symptoms and signs involving the circulatory and respiratory systems; Z87.892 Personal history of anaphylaxis; Z88.8 Allergy status to other drugs, medicaments and biological substances; Z88.1 Allergy status to other antibiotic agents; Z88.5 Allergy status to narcotic agent; Z88.0 Allergy status to penicillin; Z91.040 Latex allergy status; Z91.018 Allergy to other foods
CPT/HCPCS: 93005; 96376; 99284; 96361; 96374; 96375; 36415; 85025; 85045; 80053; 84484; 71045; 93010; J1200; J1170; J7030; A9270; J1642

== ENCOUNTER 2018-10-08 09:23 | Outpatient (CLI) | payer MEDICARE, MEDICAID ==
[~2018-10-08 09:23] MED LIST changes: +NORMAL SALINE 1000 ML 1,000 ML IV PRN; -NORMAL SALINE 1000 ML @ AS DIRECTED IV PRN
[2018-10-08 10:15] VITALS: BP 125/74
== END 2018-10-08 11:14 | disposition home or self-care (01) ==
LOC: II 09:23 → 5TH 09:25 → II 11:14
PROVIDERS: ATTEND Internal Medicine
PROC: 3E043GC Introduction of Other Therapeutic Substance into Central Vein, Percutaneous Approach (ICD-10-PCS; principal; 2018-10-08)
PROC: 3E0437Z Introduction of Electrolytic and Water Balance Substance into Central Vein, Percutaneous Approach (ICD-10-PCS; 2018-10-08)
DX: D57.1 Sickle-cell disease without crisis (principal); E86.0 Dehydration; R52 Pain, unspecified
CPT/HCPCS: 96365; 96375; 96361; J1200; J1170; J1642; 96360; 96367; 96374

== ENCOUNTER 2018-10-10 09:38 | Outpatient (CLI) | payer MEDICARE, MEDICAID ==
[2018-10-10 10:00] VITALS: BP 121/85
== END 2018-10-10 11:14 | disposition home or self-care (01) ==
LOC: II 09:38 → 5TH 09:40 → II 11:14
PROVIDERS: ATTEND Internal Medicine
PROC: 3E043GC Introduction of Other Therapeutic Substance into Central Vein, Percutaneous Approach (ICD-10-PCS; principal; 2018-10-10)
PROC: 3E0437Z Introduction of Electrolytic and Water Balance Substance into Central Vein, Percutaneous Approach (ICD-10-PCS; 2018-10-10)
DX: D57.1 Sickle-cell disease without crisis (principal); E86.0 Dehydration; R52 Pain, unspecified
CPT/HCPCS: 96365; 96375; 96361; J1200; J1170; J1642; 96360; 96367; 96374

== ENCOUNTER 2018-10-13 13:34 | Outpatient (CLI) | payer MEDICARE, MEDICAID ==
[2018-10-13] MEDS ORDERED: DIPHENHYDRAMINE HCL 50 MG/ML VIAL IV PRN (14:05)
[2018-10-13] MEDS ORDERED: NORMAL SALINE 1000 ML 1,000 ML IV PRN (14:06)
[2018-10-13] MEDS ORDERED: HYDROMORPHONE HCL INJ/PF 2 MG/ML AMPULE IV PRN (14:06)
[2018-10-13 14:59] VITALS: BP 127/77
== END 2018-10-13 16:49 | disposition home or self-care (01) ==
LOC: II 13:34 → 4S 13:51 → II 16:49
PROVIDERS: ATTEND Internal Medicine
PROC: 3E043GC Introduction of Other Therapeutic Substance into Central Vein, Percutaneous Approach (ICD-10-PCS; principal; 2018-10-13)
PROC: 3E0437Z Introduction of Electrolytic and Water Balance Substance into Central Vein, Percutaneous Approach (ICD-10-PCS; 2018-10-13)
DX: D57.1 Sickle-cell disease without crisis (principal); E86.0 Dehydration; R52 Pain, unspecified
CPT/HCPCS: 96374; 96375; 96361; J1200; J1170; J1642

== ENCOUNTER 2018-10-14 10:32 | Outpatient (CLI) | payer MEDICARE, MEDICAID ==
[2018-10-14 11:33] VITALS: BP 127/80
== END 2018-10-14 12:30 | disposition home or self-care (01) ==
LOC: II 10:32 → 5TH 11:31 → II 12:30
PROVIDERS: ATTEND Internal Medicine
PROC: 3E043GC Introduction of Other Therapeutic Substance into Central Vein, Percutaneous Approach (ICD-10-PCS; principal; 2018-10-14)
PROC: 3E0437Z Introduction of Electrolytic and Water Balance Substance into Central Vein, Percutaneous Approach (ICD-10-PCS; 2018-10-14)
DX: D57.1 Sickle-cell disease without crisis (principal)
CPT/HCPCS: 96365; 96375; 96361; J1200; J1170; J1642; 96360; 96374

== ENCOUNTER 2018-10-15 09:58 | Outpatient (CLI) | payer MEDICARE, MEDICAID ==
[2018-10-15] MEDS ORDERED: DIPHENHYDRAMINE HCL 25 MG in NORMAL SALINE 50 ML IV PRN (10:10)
[2018-10-15] MEDS ORDERED: NORMAL SALINE 1000 ML @ AS DIRECTED IV PRN (10:11)
[2018-10-15] MEDS ORDERED: HYDROMORPHONE HCL INJ/PF 2 MG/ML AMPULE IV PRN (10:12)
[2018-10-15 10:15] VITALS: BP 108/71
== END 2018-10-15 12:06 | disposition home or self-care (01) ==
LOC: II 09:58 → 5TH 10:00 → II 12:06
PROVIDERS: ATTEND Internal Medicine
DX: D57.1 Sickle-cell disease without crisis (principal); E86.0 Dehydration; R52 Pain, unspecified
CPT/HCPCS: 96367; 96374; 96375; 96360; 96361; J1200; J1170; J1642

== ENCOUNTER 2018-10-17 03:04 | Emergency (ER) | payer MEDICARE, MEDICAID | END 2018-10-17 07:00 | disposition left against medical advice (07) | LOC: ER 03:04 | DX: Z53.21 Procedure and treatment not carried out due to patient leaving prior to being seen by health care provider (principal) ==

== ENCOUNTER 2018-10-17 10:48 | Outpatient (CLI) | payer MEDICARE, MEDICAID ==
[2018-10-17] MEDS ORDERED: DIPHENHYDRAMINE HCL 25 MG in NORMAL SALINE 50 ML IV PRN (10:52)
[2018-10-17] MEDS ORDERED: HYDROMORPHONE HCL INJ/PF 2 MG/ML AMPULE IV PRN (10:53)
[2018-10-17] MEDS ORDERED: NORMAL SALINE 1000 ML 1,000 ML IV PRN (10:53)
[2018-10-17 11:31] VITALS: BP 122/80
== END 2018-10-17 12:51 | disposition home or self-care (01) ==
LOC: II 10:48 → 5TH 10:50 → II 12:51
PROVIDERS: ATTEND Internal Medicine
DX: D57.1 Sickle-cell disease without crisis (principal); E86.0 Dehydration; R52 Pain, unspecified
CPT/HCPCS: 96365; 96374; 96360; J1200; J1170; J1642

== ENCOUNTER 2018-10-20 14:31 | Outpatient (CLI) | payer MEDICARE, MEDICAID ==
[2018-10-20] MEDS ORDERED: DIPHENHYDRAMINE HCL 25 MG in NORMAL SALINE 50 ML IV PRN (14:34)
[2018-10-20] MEDS ORDERED: NORMAL SALINE 1000 ML 1,000 ML IV PRN (14:36)
[2018-10-20] MEDS ORDERED: HYDROMORPHONE HCL INJ/PF 2 MG/ML AMPULE IV PRN (14:36)
[2018-10-20] MEDS ORDERED: DIPHENHYDRAMINE HCL 50 MG/ML VIAL IV ONE (16:00)
== END 2018-10-20 16:52 | disposition home or self-care (01) ==
LOC: II 14:31 → 5 14:35 → II 16:52
PROVIDERS: ATTEND Internal Medicine
PROC: 3E0437Z Introduction of Electrolytic and Water Balance Substance into Central Vein, Percutaneous Approach (ICD-10-PCS; principal; 2018-10-20)
PROC: 3E043GC Introduction of Other Therapeutic Substance into Central Vein, Percutaneous Approach (ICD-10-PCS; 2018-10-20)
DX: D57.1 Sickle-cell disease without crisis (principal); E86.0 Dehydration; R52 Pain, unspecified
CPT/HCPCS: 96374; 96375; 96361; J1200; J1170; J7030; J1642

== ENCOUNTER 2018-10-21 09:37 | Outpatient (CLI) | payer MEDICARE, MEDICAID ==
[2018-10-21] MEDS ORDERED: DIPHENHYDRAMINE HCL 25 MG in NORMAL SALINE 50 ML IV PRN (09:46)
[2018-10-21] MEDS ORDERED: HYDROMORPHONE HCL INJ/PF 2 MG/ML AMPULE IV PRN (09:46)
[2018-10-21] MEDS ORDERED: NORMAL SALINE 1000 ML 1,000 ML IV PRN (09:47)
[2018-10-21 09:55] VITALS: BP 127/73
== END 2018-10-21 11:28 | disposition home or self-care (01) ==
LOC: II 09:37 → 5TH 09:39 → II 11:28
PROVIDERS: ATTEND Internal Medicine
PROC: 3E0437Z Introduction of Electrolytic and Water Balance Substance into Central Vein, Percutaneous Approach (ICD-10-PCS; principal; 2018-10-21)
PROC: 3E043GC Introduction of Other Therapeutic Substance into Central Vein, Percutaneous Approach (ICD-10-PCS; 2018-10-21)
DX: D57.1 Sickle-cell disease without crisis (principal); E86.0 Dehydration; R52 Pain, unspecified
CPT/HCPCS: 96365; 96375; 96361; J1200; J1170; J1642; 96360

== ENCOUNTER 2018-10-22 09:39 | Outpatient (CLI) | payer MEDICARE, MEDICAID ==
[2018-10-22 09:50] VITALS: BP 117/81
== END 2018-10-22 11:49 | disposition home or self-care (01) ==
LOC: II 09:39 → 5TH 09:57 → II 11:49
PROVIDERS: ATTEND Internal Medicine
PROC: 3E0437Z Introduction of Electrolytic and Water Balance Substance into Central Vein, Percutaneous Approach (ICD-10-PCS; principal; 2018-10-22)
PROC: 3E043GC Introduction of Other Therapeutic Substance into Central Vein, Percutaneous Approach (ICD-10-PCS; 2018-10-22)
DX: D57.1 Sickle-cell disease without crisis (principal); E86.0 Dehydration; R52 Pain, unspecified
CPT/HCPCS: 96365; 96375; 96361; J1200; J1170; J1642; 96360; 96374

== ENCOUNTER 2018-10-23 02:28 | Emergency (ER) | payer MEDICARE, MEDICAID ==
[2018-10-23 06:49] VITALS: BP 128/80
[2018-10-23] MEDS ORDERED: DIPHENHYDRAMINE HCL 50 MG/ML VIAL IV ONE ×2 (06:52→09:47)
[2018-10-23] MEDS ORDERED: NORMAL SALINE 1000 ML 1,000 ML IV ONE (06:52)
[2018-10-23] MEDS ORDERED: HYDROMORPHONE HCL INJ/PF 2 MG/ML AMPULE IV ONE ×3 (06:53→09:48)
--- NOTE | 2018-10-23 06:58 | ER Document Report ---
ED General - General TRAVEL OUTSIDE OF THE [place] IN LAST 30 DAYS: No <KRYSTA TURNER - Last Filed: 10/23/18 06:53> <SEBASTIAN MOORE - Last Filed: 10/23/18 10:49> - General Chief Complaint: Pain All Over Stated Complaint: PAIN Time Seen by Provider: 10/23/18 06:30 Primary Care Provider: BETH MEDELLIN MD [Primary Care Provider] - Follow up as needed Notes: Patient is a 37-year-old male with a history of sickle cell disease who presents to the emergency department for "sickle cell pain." Patient states around 10 PM last night they just got back from [place] when he laid down and got a headache and developed generalized joint pain all over. Patient states he did have some shortness of breath. Patient states he did have priaprism earlier but that now has resolved. Patient states that around 10 PM he did take his hydroxyurea, folic acid and 10 mg of oxycodone. States that his discomfort feels similar to his sickle cell crises. Patient denies chest pain. Patient denies fever. States he did have nausea earlier but has not improved. (KRYSTA TURNER) - Related Data Allergies/Adverse Reactions: famotidine [From Pepcid] Allergy (Severe, Verified 10/06/18 02:39) Anaphylaxis ketorolac tromethamine [From Toradol] Allergy (Severe, Verified 10/06/18 02:39) levofloxacin [From Levaquin] Allergy (Severe, Verified 10/06/18 02:39) meperidine HCl [From Demerol] Allergy (Severe, Verified 10/06/18 02:39) morphine [Morphine] Allergy (Severe, Verified 10/06/18 02:39) tramadol HCl [From Ultram] Allergy (Severe, Verified 10/06/18 02:39) amoxicillin [Amoxicillin] Allergy (Verified 10/06/18 02:39) fentanyl [Fentanyl] Allergy (Verified 10/06/18 02:39) latex [Latex] Allergy (Verified 10/06/18 02:39) ondansetron HCl [From Zofran] Allergy (Verified 10/06/18 02:39) Pork/Porcine Containing Products Allergy (Verified 10/06/18 02:39) Past Medical History - General Information source: Patient - Social History Smoking Status: Unknown if Ever Smoked Cigarette use (# per day): No Frequency of alcohol use: None Drug Abuse: None Lives with: Family Family History: Reviewed & Not Pertinent Patient has suicidal ideation: No Patient has homicidal ideation: No - Past Medical History Cardiac Medical History: Reports: None Denies: Hx Atrial Fibrillation, Hx Congestive Heart Failure, Hx Coronary Artery Disease Pulmonary Medical History: Reports: Hx Pneumonia Denies: Hx Asthma, Hx Bronchitis, Hx COPD, Hx Tuberculosis EENT Medical History: Reports: None Neurological Medical History: Reports: Hx Seizures. Denies: Hx Migraine Endocrine Medical History: Reports: None. Denies: Hx Diabetes Mellitus Type 1, Hx Diabetes Mellitus Type 2 Renal/ Medical History: Reports: None. Denies: Hx Peritoneal Dialysis Malignancy Medical History: Reports None GI Medical History: Reports: None. Denies: Hx Cirrhosis, Hx Hepatitis Musculoskeletal Medical History: Denies Hx Arthritis, Denies Hx Gout, Reports Hx Musculoskeletal Deformity - right hip avascular necrosis Skin Medical History: Reports None, Denies Hx Eczema, Denies Hx Psoriasis Psychiatric Medical History: Reports: Hx Depression Traumatic Medical History: Reports: None Infectious Medical History: Reports: None. Denies: Hx Hepatitis Past Surgical History: Reports: Hx Appendectomy, Hx Vascular Surgery - L port placement, Other - Port placement - Immunizations Immunizations up to date: Yes Hx Diphtheria, Pertussis, Tetanus Vaccination: Yes Hx Pneumococcal Vaccination: 02/20/11 <KRYSTA TURNER - Last Filed: 10/23/18 06:53> Review of Systems - Review of Systems Constitutional: See HPI EENT: No symptoms reported Cardiovascular: No symptoms reported Respiratory: See HPI Gastrointestinal: No symptoms reported Genitourinary: No symptoms reported Male Genitourinary: See HPI Musculoskeletal: No symptoms reported Skin: No symptoms reported Hematologic/Lymphatic: No symptoms reported Neurological/Psychological: No symptoms reported <KRYSTA TURNER - Last Filed: 10/23/18 06:53> Physical Exam - Vital signs Interpretation: Normal <KRYSTA TURNER - Last Filed: 10/23/18 06:53> - Vital signs Vitals: Temp Pulse Resp BP Pulse Ox 98.3 F 56 L 16 126/81 H 98 10/23/18 02:31 10/23/18 02:31 10/23/18 02:31 10/23/18 02:31 10/23/18 02:31 - Notes Notes: GENERAL: Well-appearing, well-nourished and in no acute distress. HEAD: Atraumatic, normocephalic. EYES: Pupils equal round and reactive to light, extraocular movements intact, sclera anicteric, conjunctiva are normal. ENT: Nares patent, oropharynx clear without exudates. Moist mucous membranes. NECK: Normal range of motion, supple without lymphadenopathy or JVD. LUNGS: Breath sounds clear to auscultation bilaterally and equal. No wheezes rales or rhonchi. HEART: Regular rate and rhythm without murmurs, rubs or gallops. ABDOMEN: Soft, nontender, normoactive bowel sounds. No guarding, no rebound. No masses appreciated. BACK: No cervical, thoracic, lumbar midline tenderness. No saddle anesthesia, normal distal neurovascular exam. GENITOURINARY: Assessed with nurse at the bedside. No priaprism noted. Patient states he is at his normal. No scrotal edema. EXTREMITIES: Normal range of motion, no pitting or edema. No clubbing or cyanosis. Tenderness noted to the right hip and right foot. NEUROLOGICAL: Cranial nerves II through XII grossly intact. Normal speech, normal gait. PSYCH: Normal mood, normal affect. SKIN: Warm, Dry, normal turgor, no rashes or lesions noted. (KRYSTA TURNER) Course - Laboratory Result Diagrams: 10/23/18 06:40 10/23/18 06:40 <KRYSTA TURNER - Last Filed: 10/23/18 06:53> - Laboratory Result Diagrams: 10/23/18 06:40 10/23/18 06:40 <SEBASTIAN MOORE - Last Filed: 10/23/18 10:49> - Re-evaluation Re-evalutation: 10/23/18 06:57 Upon initial evaluation patient is resting comfortably in no acute distress. Will give IV fluids, obtain lab work, give pain medication and Benadryl. Patient states he has been seeing Dr. Medellin and receiving daily doses of IV Dilaudid, fluids and Benadryl. Patient states that he was able to tolerate his 2-day trip to [place] but when he got back he felt like he was having a sickle cell crisis. (KRYSTA TURNER) 10/23/18 08:51 I assumed care of this patient from Krysta Turner NP. Patient is well- appearing at the bedside and very pleasant. Patient has received an additional Dilaudid 2 mg IV. Plan to reassess and determine if his typical ER course is required or if this dose of Dilaudid will be adequate. 10/23/18 09:48 Patient states that he did feel a little bit better after Dilaudid 2 mg IV second dose but still has pain and said he was itching. He does have a baseline morphine and tramadol allergy. A third dose of Dilaudid 2 mg IV has been ordered along with Benadryl 25 mg IV 1 time. Will reassess response to treatment. 10/23/18 10:43 Patient received Dilaudid 2 mg IV and Benadryl 25 mg IV once. Patient states he is feeling much better and he really wants to go home and "make an attempt to g et out of here". Patient is comfortable at the bedside looking at his phone in no acute distress. Presentation is most consistent with an uncomplicated sickle cell pain crisis. Patient has no evidence of an aplastic crisis on labs. Vitals are not consistent with acute chest syndrome. Vitals have remained within normal limits here in the emergency department. Patient's pain has been able to be controlled using IV analgesia. The patient is agreeable to discharge home at this time. I recommended that they follow closely with their primary educational administrator. Return precautions have been reviewed and discussed and patient has verbalized indications to return to the emergency department. 10/23/18 10:48 (SEBASTIAN MOORE) - Vital Signs Vital signs: Temp Pulse Resp BP Pulse Ox 98.3 F 56 L 15 128/80 H 95 10/23/18 02:31 10/23/18 02:31 10/23/18 06:01 10/23/18 06:01 10/23/18 06:01 - Laboratory Laboratory results interpreted by me: 10/23/18 10/23/18 06:40 06:40 RBC 2.91 L Hgb 9.9 L Hct 28.8 L MCV 99 H MCH 34.1 H RDW 19.6 H Plt Count 554 H Retic Count (auto) 6.49 H Absolute Retic 0.189 H Total Bilirubin 1.4 H Discharge <KRYSTA TURNER - Last Filed: 10/23/18 06:53> <SEBASTIAN MOORE - Last Filed: 10/23/18 10:49> - Discharge Clinical Impression: Sickle cell crisis, Itching Condition: Good Disposition: HOME, SELF-CARE Additional Instructions: You were seen today for sickle cell pain crisis. Please follow-up with your educational administrator. Returning to the ED if you have worsening pain, fever greater than 100.4, shortness of breath, persistent vomiting, or any other symptoms that are concerning to you. Referrals: BETH MEDELLIN MD [Primary Care Provider] - Follow up as needed
[2018-10-23 07:07] LABS: ABSOLUTE RETICS # 0.189 10^6/uL (0.028-0.122); HEMATOCRIT 28.8 % (37.9-51.0); HEMOGLOBIN 9.9 g/dL (13.5-17.0); MEAN CORPUSCULAR HEMOGLOBIN 34.1 pg (27.0-33.4); MEAN CORPUSCULAR HGB CONC 34.5 g/dL (32.0-36.0); MEAN CORPUSCULAR VOLUME 99 fl (80-97); PLATELET COUNT 554 10^3/uL (150-450); RED BLOOD COUNT 2.91 10^6/uL (4.35-5.55); RED CELL DISTRIBUTION WIDTH 19.6 % (11.5-14.0); RETICULOCYTE COUNT (AUTO) 6.49 % (0.66-2.85); WHITE BLOOD COUNT 6.2 10^3/uL (4.0-10.5)
[2018-10-23 07:11] LABS: ALANINE AMINOTRANSFERASE 26 U/L (21-72); ALBUMIN 4.3 g/dL (3.5-5.0); ALKALINE PHOSPHATASE 71 U/L (38-126); ANION GAP 8 (5-19); ASPARTATE AMINO TRANSFERASE 35 U/L (17-59); BILIRUBIN,DIRECT 0.1 mg/dL (0.0-0.4); BILIRUBIN,TOTAL 1.4 mg/dL (0.2-1.3); BLOOD UREA NITROGEN 8 mg/dL (7-20); CALCIUM 8.9 mg/dL (8.4-10.2); CARBON DIOXIDE 29 mmol/L (22-30); CHLORIDE 104 mmol/L (98-107); GLUCOSE 91 mg/dL (75-110); LIPASE 79.3 U/L (23-300); SODIUM 140.7 mmol/L (137-145); TOTAL PROTEIN 8.2 g/dL (6.3-8.2)
[2018-10-23 07:22] LABS: ABSOLUTE LYMPHOCYTES# (MANUAL) 1.6 10^3/uL (0.5-4.7); ABSOLUTE MONOCYTES # (MANUAL) 0.5 10^3/uL (0.1-1.4); BASOPHILS % (MANUAL) 2 % (0-2); EOSINOPHILS % (MANUAL) 1 % (0-6); LYMPHOCYTES % (MANUAL) 24 % (13-45); MONOCYTES % (MANUAL) 8 % (3-13); NUCLEATED RED BLOOD CELLS 4 /100 WBC (0); SEGMENTED NEUTROPHILS % (MAN) 63 % (42-78); TOTAL CELLS COUNTED 100
[2018-10-23 07:24] LABS: POLYCHROMASIA 1+
[2018-10-23 07:25] LABS: ANISOCYTOSIS 2+; HOWELL-JOLLY BODIES PRESENT; OVALOCYTES SLIGHT; PLATELET GIANT PRESENT; POIKILOCYTOSIS 2+; SCHISTOCYTES SLIGHT; SICKLE RED CELLS 1+; TARGET CELLS 2+; TEAR DROP CELLS SLIGHT
[2018-10-23 07:26] LABS: PLATELET COMMENT INCREASED
[2018-10-23 08:03] LABS: APPEARANCE,URINE CLEAR; BILIRUBIN,URINE NEGATIVE (NEGATIVE); COLOR,URINE YELLOW; GLUCOSE, URINE NEGATIVE (NEGATIVE); KETONES,URINE NEGATIVE (NEGATIVE); LEUKOCYTE ESTERASE,URINE NEGATIVE (NEGATIVE); NITRITE,URINE NEGATIVE (NEGATIVE); PROTEIN,URINE NEGATIVE (NEGATIVE); URINE SPECIFIC GRAVITY 1.008; UROBILINOGEN,URINE NEGATIVE mg/dL (<2.0)
== END 2018-10-23 11:39 | disposition home or self-care (01) ==
LOC: ER 02:28
DX: D57.00 Hb-SS disease with crisis, unspecified (principal); L29.9 Pruritus, unspecified; M79.10 Myalgia, unspecified site; Z88.6 Allergy status to analgesic agent; Z88.0 Allergy status to penicillin; Z91.040 Latex allergy status
CPT/HCPCS: 36591; 96376; 99284; 96361; 96374; 96375; 36415; 83690; 85025; 85045; 80053; 81001; J1200; J1170; J7030; J1642

== ENCOUNTER 2018-10-27 02:55 | Emergency (ER) | payer MEDICARE, MEDICAID ==
[2018-10-27] MEDS ORDERED: HYDROMORPHONE HCL INJ/PF 2 MG/ML AMPULE IV ONE ×3 (05:19→09:26)
[2018-10-27] MEDS ORDERED: DIPHENHYDRAMINE HCL 50 MG/ML VIAL IV ONE ×2 (05:20→07:42)
--- NOTE | 2018-10-27 05:21 | ER Document Report ---
ED Medical Screen (RME) - General Chief Complaint: Sickle Cell Crisis Stated Complaint: SICKLE CELL PROBLEMS Time Seen by Provider: 10/27/18 05:15 Primary Care Provider: BETH STAPLETON MD [Primary Care Provider] - Follow up as needed Notes: 37-year-old male with a history of sickle cell disease, chief complaint of joint pain, pain in his ribs, vague shortness of breath, and an episode of priapism that happened just prior to arrival. He states that before he arrived to the emergency department the priapism resolved. He denies chest pain. Denies fever. TRAVEL OUTSIDE OF THE [place] IN LAST 30 DAYS: No - Related Data Allergies/Adverse Reactions: famotidine [From Pepcid] Allergy (Severe, Verified 10/06/18 02:39) Anaphylaxis ketorolac tromethamine [From Toradol] Allergy (Severe, Verified 10/06/18 02:39) levofloxacin [From Levaquin] Allergy (Severe, Verified 10/06/18 02:39) meperidine HCl [From Demerol] Allergy (Severe, Verified 10/06/18 02:39) morphine [Morphine] Allergy (Severe, Verified 10/06/18 02:39) tramadol HCl [From Ultram] Allergy (Severe, Verified 10/06/18 02:39) amoxicillin [Amoxicillin] Allergy (Verified 10/06/18 02:39) fentanyl [Fentanyl] Allergy (Verified 10/06/18 02:39) latex [Latex] Allergy (Verified 10/06/18 02:39) ondansetron HCl [From Zofran] Allergy (Verified 10/06/18 02:39) Pork/Porcine Containing Products Allergy (Verified 10/06/18 02:39) Past Medical History - Past Medical History Cardiac Medical History: Denies: Hx Atrial Fibrillation, Hx Congestive Heart Failure, Hx Coronary Artery Disease Pulmonary Medical History: Reports: Hx Pneumonia Denies: Hx Asthma, Hx Bronchitis, Hx COPD, Hx Tuberculosis Neurological Medical History: Reports: Hx Seizures. Denies: Hx Migraine Endocrine Medical History: Denies: Hx Diabetes Mellitus Type 1, Hx Diabetes Mellitus Type 2 Renal/ Medical History: Denies: Hx Peritoneal Dialysis GI Medical History: Denies: Hx Cirrhosis, Hx Hepatitis Musculoskeltal Medical History: Denies Hx Arthritis, Denies Hx Gout, Reports Hx Musculoskeletal Deformity - right hip avascular necrosis Skin Medical History: Denies Hx Eczema, Denies Hx Psoriasis Psychiatric Medical History: Reports: Hx Depression Infectious Medical History: Denies: Hx Hepatitis Past Surgical History: Reports: Hx Appendectomy, Hx Vascular Surgery - L port placement, Other - Port placement - Immunizations Immunizations up to date: Yes Hx Diphtheria, Pertussis, Tetanus Vaccination: Yes Physical Exam - Vital signs Vitals: Temp Pulse Resp BP Pulse Ox 97.9 F 71 18 126/86 H 97 10/27/18 03:09 10/27/18 03:09 10/27/18 03:09 10/27/18 03:09 10/27/18 03:09 - Respiratory Respiratory status: No respiratory distress. No: Labored, Retractions, Tachypnea Breath sounds: Normal. No: Decreased air movement - Cardiovascular Rhythm: Regular. No: Tachycardia Heart sounds: Normal auscultation, S1 appreciated, S2 appreciated Course - Re-evaluation Re-evalutation: No hypoxia, patient is not in distress, no tachycardia. Work-up pending. I have greeted and performed a rapid initial assessment of this patient. A comprehensive ED assessment and evaluation of the patient, analysis of test results and completion of the medical decision making process will be conducted by additional ED providers. - Vital Signs Vital signs: Temp Pulse Resp BP Pulse Ox 97.9 F 71 18 126/86 H 97 10/27/18 03:09 10/27/18 03:09 10/27/18 03:09 10/27/18 03:09 10/27/18 03:09 Doctor's Discharge - Discharge Referrals: BETH STAPLETON MD [Primary Care Provider] - Follow up as needed
--- NOTE | 2018-10-27 06:38 | RADIOLOGY REPORT (SQ) ---
EXAM DESCRIPTION: XR CHEST 2 VIEWS COMPLETED DATE/TME: 10/27/2018 05:19 CLINICAL HISTORY: 37 years Male, shortness of breath, sickle cell COMPARISON: 10/06/18, 12/30/15 FINDINGS: Adequate lung volume, chronic mild interstitial markings and mild patchy lower lung opacity, normal cardiac silhouette, and intact bony thorax. Left jugular miniport catheter tip at the SVC. IMPRESSION: No acute cardiopulmonary findings. Mild chronic fibrosis/chronic interstitial lung disease.
[2018-10-27 06:41] LABS: ABSOLUTE RETICS # 0.166 10^6/uL (0.028-0.122); HEMATOCRIT 27.6 % (37.9-51.0); HEMOGLOBIN 9.6 g/dL (13.5-17.0); MEAN CORPUSCULAR HEMOGLOBIN 34.1 pg (27.0-33.4); MEAN CORPUSCULAR HGB CONC 34.6 g/dL (32.0-36.0); MEAN CORPUSCULAR VOLUME 99 fl (80-97); PLATELET COUNT 416 10^3/uL (150-450); RED BLOOD COUNT 2.81 10^6/uL (4.35-5.55); RED CELL DISTRIBUTION WIDTH 19.1 % (11.5-14.0); RETICULOCYTE COUNT (AUTO) 5.91 % (0.66-2.85)
[2018-10-27 06:48] LABS: ABSOLUTE LYMPHOCYTES# (MANUAL) 2.7 10^3/uL (0.5-4.7); ABSOLUTE MONOCYTES # (MANUAL) 0.8 10^3/uL (0.1-1.4); BASOPHILS % (MANUAL) 0 % (0-2); EOSINOPHILS % (MANUAL) 0 % (0-6); LYMPHOCYTES % (MANUAL) 54 % (13-45); MONOCYTES % (MANUAL) 16 % (3-13); NUCLEATED RED BLOOD CELLS 2 /100 WBC (0); SEGMENTED NEUTROPHILS % (MAN) 30 % (42-78); TOTAL CELLS COUNTED 100
[2018-10-27 06:50] LABS: ANISOCYTOSIS 3+; HYPOCHROMASIA 1+; POLYCHROMASIA 1+
[2018-10-27 06:51] LABS: PLATELET COMMENT ADEQUATE; POIKILOCYTOSIS 1+; SCHISTOCYTES SLIGHT; SICKLE RED CELLS 2+; TARGET CELLS 2+
[2018-10-27 06:53] LABS: ALANINE AMINOTRANSFERASE 29 U/L (21-72); ALBUMIN 4.1 g/dL (3.5-5.0); ALKALINE PHOSPHATASE 70 U/L (38-126); ANION GAP 7 (5-19); ASPARTATE AMINO TRANSFERASE 43 U/L (17-59); BILIRUBIN,DIRECT 0.2 mg/dL (0.0-0.4); BILIRUBIN,TOTAL 1.6 mg/dL (0.2-1.3); BLOOD UREA NITROGEN 12 mg/dL (7-20); CALCIUM 8.6 mg/dL (8.4-10.2); CARBON DIOXIDE 29 mmol/L (22-30); CHLORIDE 105 mmol/L (98-107); GLUCOSE 80 mg/dL (75-110); SODIUM 140.8 mmol/L (137-145); TOTAL PROTEIN 7.9 g/dL (6.3-8.2)
[2018-10-27] MEDS ORDERED: NORMAL SALINE 1000 ML 1,000 ML IV ONE (07:42)
--- NOTE | 2018-10-27 08:19 | ER Document Report ---
ED General - General Chief Complaint: Sickle Cell Crisis Stated Complaint: SICKLE CELL PROBLEMS Time Seen by Provider: 10/27/18 05:15 Primary Care Provider: BETH STAPLETON MD [Primary Care Provider] - Follow up as needed TRAVEL OUTSIDE OF THE [place] IN LAST 30 DAYS: No - HPI Notes: Patient is a 37-year-old male who presents to the emergency department for evaluation of pain. He states is typical of his sickle cell pain. He complains of pain in his joints, particularly on the right side of his body, as well as in his chest. He states he also had a priapism, but it resolved prior to arrival. He is been taking all of his medications as prescribed. Denies any fevers. He states he felt somewhat short of breath, but again this is improved. - Related Data Allergies/Adverse Reactions: famotidine [From Pepcid] Allergy (Severe, Verified 10/06/18 02:39) Anaphylaxis ketorolac tromethamine [From Toradol] Allergy (Severe, Verified 10/06/18 02:39) levofloxacin [From Levaquin] Allergy (Severe, Verified 10/06/18 02:39) meperidine HCl [From Demerol] Allergy (Severe, Verified 10/06/18 02:39) morphine [Morphine] Allergy (Severe, Verified 10/06/18 02:39) tramadol HCl [From Ultram] Allergy (Severe, Verified 10/06/18 02:39) amoxicillin [Amoxicillin] Allergy (Verified 10/06/18 02:39) fentanyl [Fentanyl] Allergy (Verified 10/06/18 02:39) latex [Latex] Allergy (Verified 10/06/18 02:39) ondansetron HCl [From Zofran] Allergy (Verified 10/06/18 02:39) Pork/Porcine Containing Products Allergy (Verified 10/06/18 02:39) Past Medical History - General Information source: Patient - Social History Smoking Status: Never Smoker Drug Abuse: None Family History: Reviewed & Not Pertinent Patient has suicidal ideation: No Patient has homicidal ideation: No - Medical History Medical History: Other - Sickle cell anemia - Past Medical History Cardiac Medical History: Denies: Hx Atrial Fibrillation, Hx Congestive Heart Failure, Hx Coronary Artery Disease Pulmonary Medical History: Reports: Hx Pneumonia Denies: Hx Asthma, Hx Bronchitis, Hx COPD, Hx Tuberculosis Neurological Medical History: Reports: Hx Seizures. Denies: Hx Migraine Endocrine Medical History: Denies: Hx Diabetes Mellitus Type 1, Hx Diabetes Mellitus Type 2 Renal/ Medical History: Denies: Hx Peritoneal Dialysis GI Medical History: Denies: Hx Cirrhosis, Hx Hepatitis Musculoskeletal Medical History: Denies Hx Arthritis, Denies Hx Gout, Reports Hx Musculoskeletal Deformity - right hip avascular necrosis Skin Medical History: Denies Hx Eczema, Denies Hx Psoriasis Psychiatric Medical History: Reports: Hx Depression Infectious Medical History: Denies: Hx Hepatitis Past Surgical History: Reports: Hx Appendectomy, Hx Vascular Surgery - L port placement, Other - Port placement - Immunizations Immunizations up to date: Yes Hx Diphtheria, Pertussis, Tetanus Vaccination: Yes Hx Pneumococcal Vaccination: 02/20/11 Review of Systems - Review of Systems Constitutional: No symptoms reported EENT: No symptoms reported Cardiovascular: See HPI Respiratory: See HPI Gastrointestinal: No symptoms reported Genitourinary: No symptoms reported Male Genitourinary: See HPI Musculoskeletal: See HPI Skin: No symptoms reported Neurological/Psychological: No symptoms reported Physical Exam - Vital signs Vitals: Temp Pulse Resp BP Pulse Ox 97.9 F 71 18 126/86 H 97 10/27/18 03:09 10/27/18 03:09 10/27/18 03:09 10/27/18 03:09 10/27/18 03:09 - Notes Notes: Vital signs reviewed, please refer to chart. Head is normocephalic, atraumatic. Pupils equal round, reactive to light. Neck is supple without meningismus. Heart is regular rate and rhythm. Lungs are clear to auscultation bilaterally. No abnormality visualized of chest wall, but chest wall is tender to palpation. Normal and equal chest wall excursion bilaterally. Abdomen is soft, nontender, normoactive bowel sounds throughout. Extremities without cyanosis, clubbing. Posterior calves are nontender. Patient tender to palpation over nearly every joint in the lower extremities, but no associated calor, edema, erythema appreciated. Neurovascularly intact distally. Peripheral pulses are equal. Skin is warm and dry. Patient is awake, alert, neurological exam is nonfocal. Course - Re-evaluation Re-evalutation: 10/27/18 08:18 Patient presents emergency department for evaluation. He was initially evaluated and seen via RME by the PA. This is all typical of the patient's normal presentation with his exacerbations. He is not showing any signs of vaso-occlusive crises. Reticulocyte count is significantly elevated, particularly for this patient. He is medicated, given fluids, will continue to monitor. 10/27/18 11:39 After multiple rounds of medication, patient is feeling improved. He feels able to go home. He is told to follow-up with Dr. Stapleton this week. He is to return to the ED with worsening or new concerning symptoms of any sort. - Vital Signs Vital signs: Temp Pulse Resp BP Pulse Ox 97.9 F 71 12 134/81 H 100 10/27/18 03:09 10/27/18 03:09 10/27/18 08:00 10/27/18 05:30 10/27/18 08:00 - Laboratory Result Diagrams: 10/27/18 06:17 10/27/18 06:17 Laboratory results interpreted by me: 10/27/18 10/27/18 06:17 06:17 RBC 2.81 L Hgb 9.6 L Hct 27.6 L MCV 99 H MCH 34.1 H RDW 19.1 H Seg Neuts % (Manual) 30 L Lymphocytes % (Manual) 54 H Monocytes % (Manual) 16 H Abs Neuts (Manual) 1.5 L Retic Count (auto) 5.91 H Absolute Retic 0.166 H Total Bilirubin 1.6 H - Diagnostic Test Radiology reviewed: Reports reviewed Radiology results interpreted by me: 10/27/18 11:39 Chest X-Ray 10/27/18 05:19 IMPRESSION: No acute cardiopulmonary findings. Mild chronic fibrosis/chronic interstitial lung disease. Discharge - Discharge Clinical Impression: Sickle cell crisis, Polyarthralgia Condition: Stable Disposition: HOME, SELF-CARE Instructions: Sickle Cell Crisis ([facility]) Additional Instructions: Rest and stay well-hydrated. Take your regular medications as prescribed. Follow-up with Dr. Stapleton this week. Return to the ED with worsening or new concerning symptoms. Referrals: BETH STAPLETON MD [Primary Care Provider] - Follow up as needed
[2018-10-27 12:26] VITALS: BP 130/92
== END 2018-10-27 12:26 | disposition home or self-care (01) ==
LOC: ER 02:55
DX: D57.00 Hb-SS disease with crisis, unspecified (principal); M25.50 Pain in unspecified joint; R07.9 Chest pain, unspecified; J84.10 Pulmonary fibrosis, unspecified; Z79.899 Other long term (current) drug therapy; Z87.892 Personal history of anaphylaxis; Z88.8 Allergy status to other drugs, medicaments and biological substances; Z88.1 Allergy status to other antibiotic agents; Z88.5 Allergy status to narcotic agent; Z88.0 Allergy status to penicillin; Z91.040 Latex allergy status; Z91.018 Allergy to other foods
CPT/HCPCS: 36591; 96376; 99284; 96361; 96374; 96375; 36415; 85025; 85045; 80053; 71046; J1200; J1170; J7030; J1642

== ENCOUNTER 2018-10-28 09:47 | Outpatient (CLI) | payer MEDICARE, MEDICAID ==
[2018-10-28 10:12] VITALS: BP 140/84
== END 2018-10-28 11:50 | disposition home or self-care (01) ==
LOC: II 09:47 → 5TH 10:21 → II 11:50
PROVIDERS: ATTEND Internal Medicine
PROC: 3E043NZ Introduction of Analgesics, Hypnotics, Sedatives into Central Vein, Percutaneous Approach (ICD-10-PCS; principal; 2018-10-28)
PROC: 3E0437Z Introduction of Electrolytic and Water Balance Substance into Central Vein, Percutaneous Approach (ICD-10-PCS; 2018-10-28)
PROC: 3E043GC Introduction of Other Therapeutic Substance into Central Vein, Percutaneous Approach (ICD-10-PCS; 2018-10-28)
DX: D57.1 Sickle-cell disease without crisis (principal); E86.0 Dehydration; R52 Pain, unspecified
CPT/HCPCS: 96365; 96375; 96361; J1200; J1170; J1642; 96360

== ENCOUNTER 2018-10-29 09:45 | Outpatient (CLI) | payer MEDICARE, MEDICAID ==
[2018-10-29 10:01] VITALS: BP 131/80
== END 2018-10-29 12:00 | disposition home or self-care (01) ==
LOC: II 09:45 → 5TH 09:53 → II 12:00
PROVIDERS: ATTEND Internal Medicine
PROC: 3E043NZ Introduction of Analgesics, Hypnotics, Sedatives into Central Vein, Percutaneous Approach (ICD-10-PCS; principal; 2018-10-29)
PROC: 3E043GC Introduction of Other Therapeutic Substance into Central Vein, Percutaneous Approach (ICD-10-PCS; 2018-10-29)
PROC: 3E0437Z Introduction of Electrolytic and Water Balance Substance into Central Vein, Percutaneous Approach (ICD-10-PCS; 2018-10-29)
DX: D57.1 Sickle-cell disease without crisis (principal); E86.0 Dehydration; R52 Pain, unspecified
CPT/HCPCS: 96365; 96375; 96361; J1200; J1170; J1642; 96360; 96374

== ENCOUNTER 2018-10-30 09:45 | Outpatient (CLI) | payer MEDICARE, MEDICAID ==
[2018-10-30 10:08] VITALS: BP 123/74
[2018-10-30] MEDS ORDERED: DIPHENHYDRAMINE HCL 25 MG in NORMAL SALINE 50 ML IV PRN (10:14)
== END 2018-10-30 11:16 | disposition home or self-care (01) ==
LOC: 5TH 09:45 → II 09:45
PROVIDERS: ATTEND Internal Medicine
PROC: 3E043NZ Introduction of Analgesics, Hypnotics, Sedatives into Central Vein, Percutaneous Approach (ICD-10-PCS; principal; 2018-10-30)
PROC: 3E043GC Introduction of Other Therapeutic Substance into Central Vein, Percutaneous Approach (ICD-10-PCS; 2018-10-30)
PROC: 3E0437Z Introduction of Electrolytic and Water Balance Substance into Central Vein, Percutaneous Approach (ICD-10-PCS; 2018-10-30)
DX: D57.1 Sickle-cell disease without crisis (principal); E86.0 Dehydration; R52 Pain, unspecified
CPT/HCPCS: 96365; 96375; 96361; J1200; J1170; J1642; 96360; 96374

== ENCOUNTER 2018-11-03 13:02 | Outpatient (CLI) | payer MEDICARE, MEDICAID ==
[2018-11-03 13:24] VITALS: BP 129/73
[2018-11-03] MEDS ORDERED: DIPHENHYDRAMINE HCL 50 MG/ML VIAL IV PRN (13:42)
== END 2018-11-03 14:58 | disposition home or self-care (01) ==
LOC: II 13:02 → 2N 13:15 → II 14:58
PROVIDERS: ATTEND Internal Medicine
PROC: 3E033GC Introduction of Other Therapeutic Substance into Peripheral Vein, Percutaneous Approach (ICD-10-PCS; principal; 2018-11-03)
PROC: 3E0337Z Introduction of Electrolytic and Water Balance Substance into Peripheral Vein, Percutaneous Approach (ICD-10-PCS; 2018-11-03)
DX: D57.1 Sickle-cell disease without crisis (principal); E86.0 Dehydration; R52 Pain, unspecified
CPT/HCPCS: 96374; 96375; 96361; J1200; J1170; J7030; J1642

== ENCOUNTER 2018-11-05 09:24 | Outpatient (CLI) | payer MEDICARE, MEDICAID ==
[2018-11-05] MEDS ORDERED: HYDROMORPHONE HCL INJ/PF 2 MG/ML AMPULE ONE (10:16)
[2018-11-05 11:01] VITALS: BP 118/75
== END 2018-11-05 12:18 | disposition home or self-care (01) ==
LOC: II 09:24 → 5TH 09:25 → II 12:18
PROVIDERS: ATTEND Internal Medicine Hematology & Oncology
PROC: 3E0437Z Introduction of Electrolytic and Water Balance Substance into Central Vein, Percutaneous Approach (ICD-10-PCS; principal; 2018-11-05)
PROC: 3E043GC Introduction of Other Therapeutic Substance into Central Vein, Percutaneous Approach (ICD-10-PCS; 2018-11-05)
DX: D57.1 Sickle-cell disease without crisis (principal); E86.0 Dehydration; R52 Pain, unspecified
CPT/HCPCS: 96365; 96375; 96361; J1200; J1170; J1642; 96360; 96367; 96374

== ENCOUNTER 2018-11-06 10:42 | Outpatient (CLI) | payer MEDICARE, MEDICAID ==
[2018-11-06] MEDS ORDERED: DIPHENHYDRAMINE HCL IV PRN (10:45)
[2018-11-06] MEDS ORDERED: NORMAL SALINE IV PRN (10:45)
[2018-11-06] MEDS ORDERED: HYDROMORPHONE HCL INJ/PF 2 MG/ML AMPULE IV PRN (10:46)
[2018-11-06] MEDS ORDERED: NORMAL SALINE 1000 ML 1,000 ML IV PRN (10:47)
[2018-11-06 11:40] VITALS: BP 123/83
== END 2018-11-06 13:36 | disposition home or self-care (01) ==
LOC: II 10:42 → 5TH 10:43 → II 13:36
PROVIDERS: ATTEND Internal Medicine Hematology & Oncology
PROC: 3E043GC Introduction of Other Therapeutic Substance into Central Vein, Percutaneous Approach (ICD-10-PCS; principal; 2018-11-06)
PROC: 3E0437Z Introduction of Electrolytic and Water Balance Substance into Central Vein, Percutaneous Approach (ICD-10-PCS; 2018-11-06)
DX: D57.1 Sickle-cell disease without crisis (principal); E86.0 Dehydration; R52 Pain, unspecified
CPT/HCPCS: 96365; 96375; 96361; J1200; J1170; 96360; 96374

== ENCOUNTER 2018-11-07 07:55 | Outpatient (CLI) | payer MEDICARE, MEDICAID ==
[2018-11-07] MEDS ORDERED: DIPHENHYDRAMINE HCL 50 MG in NORMAL SALINE 50 ML IV PRN (08:19)
[2018-11-07] MEDS ORDERED: NORMAL SALINE 1000 ML 1,000 ML IV PRN (08:20)
[2018-11-07] MEDS ORDERED: HYDROMORPHONE HCL INJ/PF 2 MG/ML AMPULE IV PRN (08:20)
[2018-11-07 08:32] VITALS: BP 111/50
[2018-11-07] MEDS ORDERED: DIPHENHYDRAMINE HCL 25 MG in NORMAL SALINE 50 ML IV PRN (08:34)
== END 2018-11-07 11:01 | disposition home or self-care (01) ==
LOC: II 07:55
PROVIDERS: ATTEND Internal Medicine Hematology & Oncology
PROC: 3E0437Z Introduction of Electrolytic and Water Balance Substance into Central Vein, Percutaneous Approach (ICD-10-PCS; principal; 2018-11-07)
PROC: 3E043GC Introduction of Other Therapeutic Substance into Central Vein, Percutaneous Approach (ICD-10-PCS; 2018-11-07)
DX: D57.1 Sickle-cell disease without crisis (principal); E86.0 Dehydration; R52 Pain, unspecified
CPT/HCPCS: 96365; 96375; 96361; J1200; J1170; J1642; 96360; 96367; 96374

== ENCOUNTER 2018-11-08 17:28 | Inpatient (IN) | payer MEDICARE, MEDICAID ==
[~2018-11-08 17:28] MED LIST changes: -DIPHENHYDRAMINE HCL 25 MG in NORMAL SALINE 50 ML IV PRN; +HYDROMORPHONE HCL 2 MG TABLET PO ONE; -HYDROMORPHONE HCL INJ/PF 2 MG/ML AMPULE IV PRN; +HYDROXYUREA 500 MG CAPSULE PO ONE; -NORMAL SALINE 1000 ML 1,000 ML IV PRN
[2018-11-08] MEDS ORDERED: NORMAL SALINE 1000 ML 1,000 ML IV ONE (18:25)
--- NOTE | 2018-11-08 18:29 | ER Document Report ---
ED Medical Screen (RME) - General Chief Complaint: Sickle Cell Crisis Stated Complaint: PAIN Time Seen by Provider: 11/08/18 18:18 Primary Care Provider: BETH STAPLETON MD [Primary Care Provider] - Follow up as needed Notes: 37-year-old male with sickle cell disease presents to the emergency department with chief complaint of worsening left hip pain secondary to his AVN that radiates around to his groin and his bilateral hamstrings. He said the pain is gotten worse over the course of the week he has been unable to stand at work. He is also complaining of acute shortness of breath but denies chest pain. No fevers or chills, no headache, no abdominal pain, no diarrhea/constipation. Of note, patient stated that he had a priapism overnight for about 2 hours and tried his "home remedies" that he said worked. I have greeted and performed a rapid initial assessment of this patient. A comprehensive ED assessment and evaluation of the patient, analysis of test results and completion of medical decision making process will be conducted by an additional ED providers. TRAVEL OUTSIDE OF THE [place] IN LAST 30 DAYS: No - Related Data Allergies/Adverse Reactions: famotidine [From Pepcid] Allergy (Severe, Verified 11/08/18 17:29) Anaphylaxis ketorolac tromethamine [From Toradol] Allergy (Severe, Verified 11/08/18 17:29) levofloxacin [From Levaquin] Allergy (Severe, Verified 11/08/18 17:29) meperidine HCl [From Demerol] Allergy (Severe, Verified 11/08/18 17:29) morphine [Morphine] Allergy (Severe, Verified 11/08/18 17:29) tramadol HCl [From Ultram] Allergy (Severe, Verified 11/08/18 17:29) amoxicillin [Amoxicillin] Allergy (Verified 11/08/18 17:29) fentanyl [Fentanyl] Allergy (Verified 11/08/18 17:29) latex [Latex] Allergy (Verified 11/08/18 17:29) ondansetron HCl [From Zofran] Allergy (Verified 11/08/18 17:29) Pork/Porcine Containing Products Allergy (Verified 11/08/18 17:29) Past Medical History - Social History Chew tobacco use (# tins/day): No Frequency of alcohol use: None Drug Abuse: None - Past Medical History Cardiac Medical History: Denies: Hx Atrial Fibrillation, Hx Congestive Heart Failure, Hx Coronary Artery Disease Pulmonary Medical History: Reports: Hx Pneumonia Denies: Hx Asthma, Hx Bronchitis, Hx COPD, Hx Tuberculosis Neurological Medical History: Reports: Hx Seizures. Denies: Hx Migraine Endocrine Medical History: Denies: Hx Diabetes Mellitus Type 1, Hx Diabetes Mellitus Type 2 Renal/ Medical History: Denies: Hx Peritoneal Dialysis GI Medical History: Denies: Hx Cirrhosis, Hx Hepatitis Musculoskeltal Medical History: Denies Hx Arthritis, Denies Hx Gout, Reports Hx Musculoskeletal Deformity - right hip avascular necrosis Skin Medical History: Denies Hx Eczema, Denies Hx Psoriasis Psychiatric Medical History: Reports: Hx Depression Infectious Medical History: Denies: Hx Hepatitis Past Surgical History: Reports: Hx Appendectomy, Hx Vascular Surgery - L port placement, Other - Port placement - Immunizations Immunizations up to date: Yes Hx Diphtheria, Pertussis, Tetanus Vaccination: Yes Physical Exam - Vital signs Vitals: Temp Pulse Resp BP Pulse Ox 98.2 F 73 18 111/74 92 11/08/18 17:33 11/08/18 17:33 11/08/18 17:33 11/08/18 17:33 11/08/18 17:33 Course - Vital Signs Vital signs: Temp Pulse Resp BP Pulse Ox 98.2 F 73 18 111/74 92 11/08/18 17:33 11/08/18 17:33 11/08/18 17:33 11/08/18 17:33 11/08/18 17:33 Doctor's Discharge - Discharge Referrals: BETH STAPLETON MD [Primary Care Provider] - Follow up as needed
[2018-11-08] MEDS ORDERED: DIPHENHYDRAMINE HCL 50 MG/ML VIAL IV ONE ×2 (18:44→21:38)
[2018-11-08] MEDS ORDERED: HYDROMORPHONE HCL INJ/PF 2 MG/ML AMPULE IV ONE ×3 (18:44→21:38)
--- NOTE | 2018-11-08 18:49 | ER Document Report ---
ED General Pain - General Chief Complaint: Sickle Cell Crisis Stated Complaint: PAIN Time Seen by Provider: 11/08/18 18:18 Notes: Patient is a 37-year-old male with a history of sickle cell crisis who presents to the emergency department with generalized pain. Patient states that he woke up this morning with pain all over. Patient states it feels like muscle cramping. Patient states he did have an episode of prior prism last night but did take his prescribed baclofen and terbutaline which did help with his symptoms. Patient states he did take a double dose of both of those. Patient states he does not have any issues with prior prism at this time. Patient states he does not have any chest pain but is having some shortness of breath. Patient denies fever. Patient denies any other concerning signs or symptoms. Patient states this feels like his normal sickle cell pain. TRAVEL OUTSIDE OF THE [place] IN LAST 30 DAYS: No - Related Data Allergies/Adverse Reactions: famotidine [From Pepcid] Allergy (Severe, Verified 11/08/18 17:29) Anaphylaxis ketorolac tromethamine [From Toradol] Allergy (Severe, Verified 11/08/18 17:29) levofloxacin [From Levaquin] Allergy (Severe, Verified 11/08/18 17:29) meperidine HCl [From Demerol] Allergy (Severe, Verified 11/08/18 17:29) morphine [Morphine] Allergy (Severe, Verified 11/08/18 17:29) tramadol HCl [From Ultram] Allergy (Severe, Verified 11/08/18 17:29) amoxicillin [Amoxicillin] Allergy (Verified 11/08/18 17:29) fentanyl [Fentanyl] Allergy (Verified 11/08/18 17:29) latex [Latex] Allergy (Verified 11/08/18 17:29) ondansetron HCl [From Zofran] Allergy (Verified 11/08/18 17:29) Pork/Porcine Containing Products Allergy (Verified 11/08/18 17:29) Past Medical History - General Information source: Patient - Social History Smoking Status: Unknown if Ever Smoked Chew tobacco use (# tins/day): No Frequency of alcohol use: None Drug Abuse: None Lives with: Family Family History: Reviewed & Not Pertinent Patient has suicidal ideation: No Patient has homicidal ideation: No - Past Medical History Cardiac Medical History: Reports: None Denies: Hx Atrial Fibrillation, Hx Congestive Heart Failure, Hx Coronary Artery Disease Pulmonary Medical History: Reports: Hx Pneumonia Denies: Hx Asthma, Hx Bronchitis, Hx COPD, Hx Tuberculosis EENT Medical History: Reports: None Neurological Medical History: Reports: Hx Seizures. Denies: Hx Migraine Endocrine Medical History: Reports: None. Denies: Hx Diabetes Mellitus Type 1, Hx Diabetes Mellitus Type 2 Renal/ Medical History: Reports: None. Denies: Hx Peritoneal Dialysis Malignancy Medical History: Reports None GI Medical History: Reports: None. Denies: Hx Cirrhosis, Hx Hepatitis Musculoskeletal Medical History: Denies Hx Arthritis, Denies Hx Gout, Reports Hx Musculoskeletal Deformity - right hip avascular necrosis Skin Medical History: Reports None, Denies Hx Eczema, Denies Hx Psoriasis Psychiatric Medical History: Reports: Hx Depression Traumatic Medical History: Reports: None Infectious Medical History: Reports: None. Denies: Hx Hepatitis Past Surgical History: Reports: Hx Appendectomy, Hx Vascular Surgery - L port placement, Other - Port placement - Immunizations Immunizations up to date: Yes Hx Diphtheria, Pertussis, Tetanus Vaccination: Yes Hx Pneumococcal Vaccination: 02/20/11 Review of Systems - Review of Systems Constitutional: No symptoms reported EENT: No symptoms reported Cardiovascular: No symptoms reported Respiratory: See HPI Gastrointestinal: No symptoms reported Genitourinary: No symptoms reported Male Genitourinary: See HPI Musculoskeletal: No symptoms reported Skin: No symptoms reported Hematologic/Lymphatic: No symptoms reported Neurological/Psychological: No symptoms reported Physical Exam - Vital signs Vitals: Temp Pulse Resp BP Pulse Ox 98.2 F 73 18 111/74 92 11/08/18 17:33 11/08/18 17:33 11/08/18 17:33 11/08/18 17:33 11/08/18 17:33 Interpretation: Normal - Notes Notes: GENERAL: Well-appearing, well-nourished and in no acute distress. HEAD: Atraumatic, normocephalic. EYES: Pupils equal round and reactive to light, extraocular movements intact, sclera anicteric, conjunctiva are normal. ENT: Nares patent, oropharynx clear without exudates. Moist mucous membranes. NECK: Normal range of motion, supple without lymphadenopathy or JVD. LUNGS: Breath sounds clear to auscultation bilaterally and equal. No wheezes rales or rhonchi. HEART: Regular rate and rhythm without murmurs, rubs or gallops. ABDOMEN: Soft, nontender, normoactive bowel sounds. No guarding, no rebound. No masses appreciated. BACK: No cervical, thoracic, lumbar midline tenderness. No saddle anesthesia, normal distal neurovascular exam. GENITOURINARY: Deferred. EXTREMITIES: Normal range of motion, no pitting or edema. No clubbing or cyanosis. NEUROLOGICAL: Cranial nerves II through XII grossly intact. Normal speech, normal gait. PSYCH: Normal mood, normal affect. SKIN: Warm, Dry, normal turgor, no rashes or lesions noted. Course - Re-evaluation Re-evalutation: 11/08/18 20:15 Patient states that the first dose of pain medication did not help with his discomfort. Patient states the pain is about the same. Patient is stable and talking on the phone. I will give another dose of pain medication and reevaluate. Patient does have an elevated retic count of 9.97. Patient's hemoglobin is 9.1 which is consistent with his anemia. 11/08/18 21:39 Patient states that his pain is slightly better rating it a 4 out of 5. Patient complains of itching. Patient states he normally does have itching when he gets Dilaudid and they normally give Benadryl with every dose. I will order an additional dose of pain medication as well as Benadryl. Patient is alert and oriented in no acute distress. We will continue to reevaluate. If patient does not get better after the third dose of pain medication will consider admission. 11/08/18 23:18 Patient states that his third dose of Dilaudid did not help with his pain and that it remains a 4 out of 5. I did speak with Dr. Ragland who will admit for pain control and a sickle cell crisis. - Vital Signs Vital signs: Temp Pulse Resp BP Pulse Ox 97.7 F 64 16 123/76 100 11/08/18 21:19 11/08/18 21:19 11/08/18 21:19 11/08/18 21:19 11/08/18 21:19 - Laboratory Result Diagrams: 11/08/18 19:30 11/08/18 19:30 Laboratory results interpreted by me: 11/08/18 11/08/18 19:30 19:30 RBC 2.60 L Hgb 9.2 L Hct 26.6 L MCV 102 H MCH 35.5 H RDW 24.4 H Retic Count (auto) 9.97 H Absolute Retic 0.259 H Glucose 118 H Total Bilirubin 1.5 H Discharge - Discharge Clinical Impression: Sickle cell crisis Sickle cell anemia Qualifiers: Sickle-cell associated disorders: with unspecified crisis Qualified Code(s): D57.00 - Hb-SS disease with crisis, unspecified Joint pain Qualifiers: Joint pain location: unspecified Qualified Code(s): M25.50 - Pain in unspecified joint Condition: Stable Disposition: ADMITTED OBSERVATION Admitting Provider: Obie (Hospitalist) Unit Admitted: Telemetry
--- NOTE | 2018-11-08 19:07 | RADIOLOGY REPORT (SQ) ---
EXAM DESCRIPTION: CHEST 2 VIEWS COMPLETED DATE/TIME: 11/08/2018 6:53 pm REASON FOR STUDY: SOB COMPARISON: 10/27/2018. EXAM PARAMETERS: NUMBER OF VIEWS: two views TECHNIQUE: Digital Frontal and Lateral radiographic views of the chest acquired. RADIATION DOSE: NA LIMITATIONS: none FINDINGS: LUNGS AND PLEURA: Chronic bilateral interstitial changes consistent with interstitial fibr osis. . MEDIASTINUM AND HILAR STRUCTURES: No masses or contour abnormalities. HEART AND VASCULAR STRUCTURES: Cardiomegaly. The pulmonary vasculature is normal. BONES: Dorsal spondylosis. . HARDWARE: None in the chest. OTHER: Port-A-Cath tip overlying SVC. IMPRESSION: Cardiomegaly. Chronic bilateral interstitial changes consistent with interstitial fibro sis. TECHNICAL DOCUMENTATION: JOB ID: [id number] 2010 [employer]- All Rights Reserved Reading location - IP/workstation name: [email or web address]
[2018-11-08 19:51] LABS: ABSOLUTE RETICS # 0.259 10^6/uL (0.028-0.122); HEMATOCRIT 26.6 % (37.9-51.0); HEMOGLOBIN 9.2 g/dL (13.5-17.0); MEAN CORPUSCULAR HEMOGLOBIN 35.5 pg (27.0-33.4); MEAN CORPUSCULAR HGB CONC 34.7 g/dL (32.0-36.0); MEAN CORPUSCULAR VOLUME 102 fl (80-97); PLATELET COUNT 182 10^3/uL (150-450); RED CELL DISTRIBUTION WIDTH 24.4 % (11.5-14.0); RETICULOCYTE COUNT (AUTO) 9.97 % (0.66-2.85); WHITE BLOOD COUNT 8.1 10^3/uL (4.0-10.5)
[2018-11-08 20:03] LABS: ABSOLUTE LYMPHOCYTES# (MANUAL) 1.9 10^3/uL (0.5-4.7); ABSOLUTE MONOCYTES # (MANUAL) 0.7 10^3/uL (0.1-1.4); BASOPHILS % (MANUAL) 0 % (0-2); EOSINOPHILS % (MANUAL) 1 % (0-6); LYMPHOCYTES % (MANUAL) 24 % (13-45); MONOCYTES % (MANUAL) 9 % (3-13); NUCLEATED RED BLOOD CELLS 12 /100 WBC (0); SEGMENTED NEUTROPHILS % (MAN) 66 % (42-78); TOTAL CELLS COUNTED 100
[2018-11-08 20:05] LABS: HOWELL-JOLLY BODIES PRESENT; PLATELET COMMENT ADEQUATE; SICKLE RED CELLS 2+; TARGET CELLS 2+
[2018-11-08 20:07] LABS: ANISOCYTOSIS 3+; POIKILOCYTOSIS 1+; POLYCHROMASIA 2+; SCHISTOCYTES SLIGHT
[2018-11-08 20:08] LABS: ALANINE AMINOTRANSFERASE 27 U/L (21-72); ALBUMIN 4.3 g/dL (3.5-5.0); ALKALINE PHOSPHATASE 73 U/L (38-126); ANION GAP 9 (5-19); ASPARTATE AMINO TRANSFERASE 41 U/L (17-59); BILIRUBIN,DIRECT 0.2 mg/dL (0.0-0.4); BILIRUBIN,TOTAL 1.5 mg/dL (0.2-1.3); BLOOD UREA NITROGEN 9 mg/dL (7-20); CALCIUM 8.9 mg/dL (8.4-10.2); CARBON DIOXIDE 28 mmol/L (22-30); CHLORIDE 103 mmol/L (98-107); GLUCOSE 118 mg/dL (75-110); POTASSIUM 3.7 mmol/L (3.6-5.0)
[2018-11-08] MEDS ORDERED: HYDROMORPHONE HCL INJ/PF 2 MG/ML AMPULE IV PRN (23:21)
[2018-11-08] MEDS ORDERED: DIPHENHYDRAMINE HCL 50 MG CAPSULE PO PRN (23:21)
[2018-11-08] MEDS ORDERED: IPRATROPIUM/ALBUTEROL 0.5-2.5 MG/3 ML AMPUL NEB PRN (23:24)
[2018-11-08] MEDS ORDERED: MAGNESIUM HYDROXIDE SUSP 30 ML UDCUP PO PRN (23:24)
[2018-11-08] MEDS ORDERED: ACETAMINOPHEN 325 MG TABLET PO PRN (23:24)
[2018-11-08] MEDS ORDERED: MAG HYDROX/AL HYDROX/SIMETH SUSP 30 ML UDCUP PO PRN (23:24)
[2018-11-09 00:04] LABS: IRON(TIBC) 100.3 ug/dL (49-181)
[2018-11-09] MEDS ORDERED: FLUTICASONE NASAL SPRAY 50 MCG/SPRY 120 SPRAY/16 GM NASL ONE (00:45)
[2018-11-09] MEDS ORDERED: IPRATROPIUM/ALBUTEROL 0.5-2.5 MG/3 ML AMPUL NEB ONE (00:45)
[2018-11-09] MEDS: NORMAL SALINE 1000 ML 1,000 ML IV PRN ×5 (00:52→18:15)
[2018-11-09] MEDS ORDERED: HYDROMORPHONE HCL 2 MG TABLET ONE (01:00)
[2018-11-09 01:13] LABS: FOLATE > 20.00 ng/mL (>2.76)
[2018-11-09] MEDS ORDERED: DIPHENHYDRAMINE HCL 50 MG/ML VIAL ONE (02:58)
[2018-11-09] MEDS ORDERED: DIPHENHYDRAMINE HCL 50 MG/ML VIAL IV ONE (03:15)
[2018-11-09] MEDS: HYDROMORPHONE HCL INJ/PF 2 MG/ML AMPULE IV PRN ×9 (03:17→21:11)
--- NOTE | 2018-11-09 03:27 | PDOC H&P ---
History of Present Illness Admission Date/PCP: 11/08/18 23:44 BETH STAPLETON MD Patient complains of: Pain crisis History of Present Illness: MARISA GARBER is a 37 year old male with a past medical history of sickle cell anemia and recurrent pain crisis presenting with 24 hours of diffuse myalgias prompting evaluation emergency room. He denies fever or shortness of breath but is found to have anemia with increased reticulocytosis and LDH. He is started on IV fluids narcotic pain control and referred to the hospitalist for admission. Patient denies recent change of medication, acute illness or focal pain but admits to heat exposure. Past Medical History Cardiac Medical History: Reports: None Denies: Atrial Fibrillation, Congestive Heart Failure, Coronary Artery Disease Pulmonary Medical History: Reports: Pneumonia Denies: Asthma, Bronchitis, Chronic Obstructive Pulmonary Disease (COPD), Tuberculosis EENT Medical History: Reports: None Neurological Medical History: Reports: Seizures Denies: Migraine Endocrine Medical History: Reports: None Denies: Diabetes Mellitus Type 1, Diabetes Mellitus Type 2 Renal/ Medical History: Reports: None Malignancy Medical History: Reports: None GI Medical History: Reports: None Denies: Cirrhosis, Hepatitis Musculoskeltal Medical History: Denies: Arthritis, Gout Skin Medical History: Reports: None Denies: Eczema, Psoriasis Psychiatric Medical History: Reports: Depression Traumatic Medical History: Reports: None Hematology: Reports: Anemia, Sickle Cell Disease Denies: Hemophilia, Bleeding Tendencies Infectious Medical History: Reports: None Past Surgical History Past Surgical History: Reports: Appendectomy, Vascular Surgery - L port placement, Other - Port placement Social History Information Source: Patient, [facility] Records Lives with: Family Smoking Status: Unknown if Ever Smoked Frequency of Alcohol Use: None Hx Recreational Drug Use: No Drugs: None Hx Prescription Drug Abuse: No - Advance Directive Resuscitation Status: Full Code Family History Family History: Hypertension Parental Family History Reviewed: Yes Children Family History Reviewed: Yes Sibling(s) Family History Reviewed.: Yes Medication/Allergy Home Medications: Baclofen [Baclofen 10 mg Tablet] 10 mg PO Q6HP PRN 09/03/18 Docusate Sodium [Colace 100 mg Capsule] 100 mg PO DAILY 09/03/18 Folic Acid [Folvite 1 mg Tablet] 1 mg PO DAILY 09/03/18 Hydroxyurea [Hydrea 500 mg Capsule] 1,500 mg PO MOWEFR@1000 09/03/18 Hydroxyurea [Hydrea 500 mg Capsule] 2,000 mg PO SUTUTHSA@1000 09/03/18 Ibuprofen [Motrin 600 mg Tablet] 600 mg PO Q6HP PRN 09/03/18 Methadone HCl [Dolophine HCl] 5 mg PO BID 09/03/18 Oxycodone HCl [Oxycodone HCl 10 MG Tablet] 10 mg PO Q4HP PRN 09/03/18 Pseudoephedrine HCl [Sudafed] 60 mg PO Q6HP PRN 09/03/18 Sennosides [Senna] 8.6 mg PO DAILY 09/03/18 Terbutaline Sulfate [Brethine] 5 mg PO Q6HP PRN 09/03/18 Folic Acid [Folvite 1 mg Tablet] 1 mg PO DAILY tablet 09/07/18 Hydroxyurea [Hydrea 500 mg Capsule] 1,500 mg PO MOWEFR@1000 capsule 09/07/18 Hydroxyurea [Hydrea 500 mg Capsule] 500 mg PO SUTHFRSA@1000 capsule 09/07/18 Polyethylene Glycol 3350 [Miralax Powder 17 gm/Packet] 17 gm PO DAILYP PRN #25 powd.pack 09/07/18 Tobramycin Sulfate/Dexameth [Tobradex Oph Drops 2.5 ml] 1 drop OU BID #1 bottle 09/07/18 Allergies/Adverse Reactions: famotidine [From Pepcid] Allergy (Severe, Verified 11/08/18 17:29) Anaphylaxis ketorolac tromethamine [From Toradol] Allergy (Severe, Verified 11/08/18 17:29) levofloxacin [From Levaquin] Allergy (Severe, Verified 11/08/18 17:29) meperidine HCl [From Demerol] Allergy (Severe, Verified 11/08/18 17:29) morphine [Morphine] Allergy (Severe, Verified 11/08/18 17:29) tramadol HCl [From Ultram] Allergy (Severe, Verified 11/08/18 17:29) amoxicillin [Amoxicillin] Allergy (Verified 11/08/18 17:29) fentanyl [Fentanyl] Allergy (Verified 11/08/18 17:29) latex [Latex] Allergy (Verified 11/08/18 17:29) ondansetron HCl [From Zofran] Allergy (Verified 11/08/18 17:29) Pork/Porcine Containing Products Allergy (Verified 11/08/18 17:29) Review of Systems Constitutional: ABSENT: chills, fever(s), headache(s), weight gain, weight loss Eyes: ABSENT: visual disturbances Ears: ABSENT: hearing changes Cardiovascular: ABSENT: chest pain, dyspnea on exertion, edema, orthropnea, palpitations Respiratory: ABSENT: cough, hemoptysis Gastrointestinal: ABSENT: abdominal pain, constipation, diarrhea, hematemesis, hematochezia, nausea, vomiting Genitourinary: ABSENT: dysuria, hematuria Musculoskeletal: ABSENT: joint swelling Integumentary: ABSENT: rash, wounds Neurological: ABSENT: abnormal gait, abnormal speech, confusion, dizziness, focal weakness, syncope Psychiatric: ABSENT: anxiety, depression, homidical ideation, suicidal ideation Endocrine: ABSENT: cold intolerance, heat intolerance, polydipsia, polyuria Hematologic/Lymphatic: ABSENT: easy bleeding, easy bruising Physical Exam Vital Signs: Temp Pulse Resp BP Pulse Ox 98.1 F 64 17 123/73 100 11/09/18 01:58 11/09/18 01:58 11/09/18 01:58 11/09/18 01:58 11/09/18 01:58 Intake & Output 11/07/18 11/08/18 11/09/18 11:59 11:59 11:59 Intake Total 1000 Balance 1000 Weight 86.8 kg General appearance: PRESENT: no acute distress, well-developed, well-nourished Head exam: PRESENT: atraumatic, normocephalic Eye exam: PRESENT: conjunctiva pink, EOMI, PERRLA. ABSENT: scleral icterus Ear exam: PRESENT: normal external ear exam Mouth exam: PRESENT: moist, tongue midline Neck exam: ABSENT: carotid bruit, JVD, lymphadenopathy, thyromegaly Respiratory exam: PRESENT: clear to auscultation anastasiya. ABSENT: rales, rhonchi, wheezes Cardiovascular exam: PRESENT: RRR. ABSENT: diastolic murmur, rubs, systolic murmur Pulses: PRESENT: normal dorsalis pedis pul Vascular exam: PRESENT: normal capillary refill GI/Abdominal exam: PRESENT: normal bowel sounds, soft. ABSENT: distended, guarding, mass, organolmegaly, rebound, tenderness Rectal exam: PRESENT: deferred Extremities exam: PRESENT: full ROM. ABSENT: calf tenderness, clubbing, pedal edema Neurological exam: PRESENT: alert, awake, oriented to person, oriented to place, oriented to time, oriented to situation, CN II-XII grossly intact. ABSENT: motor sensory deficit Psychiatric exam: PRESENT: appropriate affect, normal mood. ABSENT: homicidal ideation, suicidal ideation Skin exam: PRESENT: dry, intact, warm. ABSENT: cyanosis, rash Results Laboratory Results: 11/08/18 19:30 11/08/18 19:30 11/08/18 11/08/18 11/08/18 19:30 19:30 19:30 WBC 8.1 RBC 2.60 L Hgb 9.2 L Hct 26.6 L MCV 102 H MCH 35.5 H MCHC 34.7 RDW 24.4 H Plt Count 182 Seg Neutrophils % Not Reportable Lymphocytes % Not Reportable Monocytes % Not Reportable Eosinophils % Not Reportable Basophils % Not Reportable Absolute Neutrophils Not Reportable Absolute Lymphocytes Not Reportable Absolute Monocytes Not Reportable Absolute Eosinophils Not Reportable Absolute Basophils Not Reportable Retic Count (auto) 9.97 H Absolute Retic 0.259 H Sodium 140.4 Potassium 3.7 Chloride 103 Carbon Dioxide 28 Anion Gap 9 BUN 9 Creatinine 0.76 Est GFR ( Amer) > 60 Est GFR (Non-Af Amer) > 60 Glucose 118 H Calcium 8.9 Iron 100.3 TIBC 342 % Saturation 29 Ferritin 103.00 Total Bilirubin 1.5 H AST 41 ALT 27 Alkaline Phosphatase 73 Total Protein 8.0 Albumin 4.3 Vitamin B12 426.0 Folate > 20.00 Impressions: Chest X-Ray 11/08/18 18:24 IMPRESSION: Cardiomegaly. Chronic bilateral interstitial changes consistent with interstitial fibrosis. Assessment and Plan - Diagnosis (1) Sickle cell crisis Is this a current diagnosis for this admission?: Yes Plan: Telemetry admission, optimize symptomatic management, hydration. Follow-up CBC (2) Sickle cell anemia Qualifiers: Sickle-cell associated disorders: with unspecified crisis Qualified Code(s): D57.00 - Hb-SS disease with crisis, unspecified; D57.0 - Hb-SS disease with crisis Is this a current diagnosis for this admission?: Yes Plan: Telemetry admission, aggressive hydration, pain management, hydroxyurea, follow- up CBC and reticulocyte count - Time Time Spent with patient: 15-24 minutes - Inpatient Certification Medical Necessity: Need Close Monitoring Due to Risk of Patient Decompensation
[2018-11-09] MEDS: HYDROMORPHONE HCL 2 MG TABLET PO SCH ×5 (05:16→21:05)
[2018-11-09 06:39] LABS: HEMATOCRIT 26.4 % (37.9-51.0); MEAN CORPUSCULAR VOLUME 103 fl (80-97); PLATELET COUNT 175 10^3/uL (150-450); RED BLOOD COUNT 2.56 10^6/uL (4.35-5.55); RED CELL DISTRIBUTION WIDTH 22.7 % (11.5-14.0)
[2018-11-09 06:55] LABS: WHITE BLOOD COUNT 5.5 10^3/uL (4.0-10.5)
[2018-11-09 06:57] LABS: ABSOLUTE LYMPHOCYTES# (MANUAL) 2.1 10^3/uL (0.5-4.7); ABSOLUTE MONOCYTES # (MANUAL) 0.3 10^3/uL (0.1-1.4); BASOPHILS % (MANUAL) 0 % (0-2); BLOOD UREA NITROGEN 7 mg/dL (7-20); CALCIUM 8.2 mg/dL (8.4-10.2); EOSINOPHILS % (MANUAL) 3 % (0-6); GLUCOSE 91 mg/dL (75-110); LYMPHOCYTES % (MANUAL) 39 % (13-45); MONOCYTES % (MANUAL) 6 % (3-13); NUCLEATED RED BLOOD CELLS 20 /100 WBC (0); PLATELET COMMENT ADEQUATE; POTASSIUM 4.2 mmol/L (3.6-5.0); SEGMENTED NEUTROPHILS % (MAN) 52 % (42-78); TOTAL CELLS COUNTED 100
[2018-11-09 06:59] LABS: ANISOCYTOSIS 3+; POIKILOCYTOSIS 2+; POLYCHROMASIA 2+; SCHISTOCYTES SLIGHT; SICKLE RED CELLS 2+; TARGET CELLS 2+
[2018-11-09 07:02] LABS: ANION GAP 6 (5-19); CARBON DIOXIDE 28 mmol/L (22-30); CHLORIDE 106 mmol/L (98-107)
[2018-11-09] MEDS: IPRATROPIUM/ALBUTEROL 0.5-2.5 MG/3 ML AMPUL NEB SCH ×2 (07:55→20:54)
[2018-11-09] MEDS ORDERED: HYDROXYUREA 500 MG CAPSULE PO SCH (10:00)
[2018-11-09] MEDS ORDERED: BACLOFEN 10 MG TABLET PO PRN (10:10)
[2018-11-09] MEDS: FLUTICASONE NASAL SPRAY 50 MCG/SPRY 120 SPRAY/16 GM NASL SCH ×2 (10:49→21:06)
[2018-11-09] MEDS: LIDOCAINE 5% (700 MG) TRANSDERMAL ADH..PATCH TP SCH (10:49)
[2018-11-09] MEDS: DOCUSATE SODIUM 100 MG CAPSULE PO SCH ×2 (10:53→17:29)
[2018-11-09] MEDS ORDERED: HYDROXYUREA 500 MG CAPSULE PO ONE (12:00)
[2018-11-09] MEDS: IBUPROFEN 600 MG TABLET PO SCH ×2 (13:30→21:06)
[2018-11-09] MEDS ORDERED: HEPARIN SOD (PORCINE) 5,000 UNIT/ML 1 ML VIAL SUBCUT SCH (14:00)
--- NOTE | 2018-11-09 16:48 | PDOC PROGRESS REPORT ---
Subjective Progress Note for:: 11/09/18 Subjective:: MARISA GARBER is a 37 year old male with a past medical history of sickle cell anemia and recurrent pain crisis who was admitted 11/08/2018 for sickle cell crisis pain. Patient was seen on morning rounds. He was found sitting up in bed, comfortably, on supplemental oxygen via nasal cannula. He tells me that he continues to have generalized malaise; specifically "muscle pain" to his left thigh/quad and "joint pain." He is unable to specify which joints are most bothering him and becomes agitated when asked to further describe his discomfort. He denies fever, chest pain, dyspnea, abdominal pain, nausea and vomiting. He has been declining most p.o. medications, but is agreeable to IV and p.o. Dilaudid. The plan of care was reviewed with him in detail. No concerns per nursing. Reason For Visit: SSC PAIN Physical Exam Vital Signs: Temp Pulse Resp BP Pulse Ox 99.2 F 67 16 140/73 H 94 11/09/18 08:01 11/09/18 14:00 11/09/18 08:01 11/09/18 08:01 11/09/18 08:01 Intake & Output 11/08/18 11/09/18 11/10/18 06:59 06:59 06:59 Intake Total 1999 1999 Balance 1999 1999 Weight 90.2 kg General appearance: PRESENT: no acute distress, well-developed, well-nourished Head exam: PRESENT: atraumatic, normocephalic Eye exam: PRESENT: conjunctiva pink, EOMI, PERRLA. ABSENT: scleral icterus Ear exam: PRESENT: normal external ear exam Mouth exam: PRESENT: moist, tongue midline Respiratory exam: PRESENT: symmetrical, unlabored, other - Supplemental oxygen via nasal cannula Vascular exam: PRESENT: normal capillary refill Rectal exam: PRESENT: deferred Extremities exam: PRESENT: full ROM. ABSENT: calf tenderness, clubbing, pedal edema Neurological exam: PRESENT: alert, awake, oriented to person, oriented to place, oriented to time, oriented to situation, CN II-XII grossly intact. ABSENT: motor sensory deficit Psychiatric exam: PRESENT: agitated. ABSENT: homicidal ideation, suicidal ideation Skin exam: PRESENT: dry, intact, warm. ABSENT: cyanosis, rash Additional comments: Unfortunately, the patient is very upset and agitated this morning, therefore, not amenable to exam at this time. Results Laboratory Results: 11/09/18 06:15 11/09/18 06:15 11/08/18 11/08/18 11/08/18 19:30 19:30 19:30 WBC 8.1 RBC 2.60 L Hgb 9.2 L Hct 26.6 L MCV 102 H MCH 35.5 H MCHC 34.7 RDW 24.4 H Plt Count 182 Seg Neutrophils % Not Reportable Lymphocytes % Not Reportable Monocytes % Not Reportable Eosinophils % Not Reportable Basophils % Not Reportable Absolute Neutrophils Not Reportable Absolute Lymphocytes Not Reportable Absolute Monocytes Not Reportable Absolute Eosinophils Not Reportable Absolute Basophils Not Reportable Retic Count (auto) 9.97 H Absolute Retic 0.259 H Sodium 140.4 Potassium 3.7 Chloride 103 Carbon Dioxide 28 Anion Gap 9 BUN 9 Creatinine 0.76 Est GFR ( Amer) > 60 Est GFR (Non-Af Amer) > 60 Glucose 118 H Calcium 8.9 Iron 100.3 TIBC 342 % Saturation 29 Ferritin 103.00 Total Bilirubin 1.5 H AST 41 ALT 27 Alkaline Phosphatase 73 Total Protein 8.0 Albumin 4.3 Vitamin B12 426.0 Folate > 20.00 11/09/18 11/09/18 06:15 06:15 WBC 5.5 RBC 2.56 L Hgb 9.0 L Hct 26.4 L MCV 103 H MCH 35.0 H MCHC 34.0 RDW 22.7 H Plt Count 175 Seg Neutrophils % Not Reportable Lymphocytes % Not Reportable Monocytes % Not Reportable Eosinophils % Not Reportable Basophils % Not Reportable Absolute Neutrophils Not Reportable Absolute Lymphocytes Not Reportable Absolute Monocytes Not Reportable Absolute Eosinophils Not Reportable Absolute Basophils Not Reportable Retic Count (auto) Absolute Retic Sodium 140.2 Potassium 4.2 Chloride 106 Carbon Dioxide 28 Anion Gap 6 BUN 7 Creatinine 0.63 Est GFR ( Amer) > 60 Est GFR (Non-Af Amer) > 60 Glucose 91 Calcium 8.2 L Iron TIBC % Saturation Ferritin Total Bilirubin AST ALT Alkaline Phosphatase Total Protein Albumin Vitamin B12 Folate Impressions: Chest X-Ray 11/08/18 18:24 IMPRESSION: Cardiomegaly. Chronic bilateral interstitial changes consistent with interstitial fibrosis. Assessment and Plan - Diagnosis (1) Sickle cell crisis Is this a current diagnosis for this admission?: Yes Plan: Patient is admitted to the medical floor and continuous cardiac telemetry. He is provided aggressive IV fluid hydration. Supplemental oxygen 2 L/min via nasal cannula. Continue home dose hydroxyurea 1000 mg twice daily Continue daily folic acid. Benadryl 50 mg p.o. every 6 as needed Baclofen 10 mg every 6 as needed Pain regimen includes: Lidoderm patches, ibuprofen 600 mg every 8 scheduled, oxycodone 10 mg every 4 PRN, Tylenol 650 mg every 4 PRN, Dilaudid 2 mg p.o. every 4 scheduled, Dilaudid 2 mg IV every 2 as needed. Heating pad as needed. (2) Sickle cell anemia Qualifiers: Sickle-cell associated disorders: with unspecified crisis Qualified Code(s): D57.00 - Hb-SS disease with crisis, unspecified; D57.0 - Hb-SS disease with crisis Is this a current diagnosis for this admission?: Yes Plan: Management of crisis as above. Daily CBC. Consider Hematology consultation. - Time Time Spent with patient: 35 or more minutes Medications reviewed and adjusted accordingly: Yes Anticipated discharge: Home Within: within 48 hours
--- NOTE | 2018-11-09 16:48 | Progress Note Acknowledgement ---
Progress Note Acknowledgement Progess Note Acknowledgement: I, the undersigned member of the medical staff with appropriate privileges and with supervisory authority over Rona Lowery, a [facility] practice allied health professional, acknowledge that I have reviewed the progress notes entered on this patient, and in my professional judgment believe that the assessment made and/or any care evidenced was appropriate
[2018-11-09] MEDS: HYDROXYUREA 500 MG CAPSULE PO SCH (17:29)
[2018-11-10] MEDS: HYDROMORPHONE HCL INJ/PF 2 MG/ML AMPULE IV PRN ×10 (00:30→21:49)
[2018-11-10] MEDS: HYDROMORPHONE HCL 2 MG TABLET PO SCH ×5 (01:08→17:26)
[2018-11-10] MEDS: IBUPROFEN 600 MG TABLET PO SCH (05:05)
[2018-11-10 05:40] LABS: HEMATOCRIT 23.5 % (37.9-51.0); HEMOGLOBIN 8.1 g/dL (13.5-17.0); MEAN CORPUSCULAR HEMOGLOBIN 35.4 pg (27.0-33.4); MEAN CORPUSCULAR HGB CONC 34.6 g/dL (32.0-36.0); MEAN CORPUSCULAR VOLUME 102 fl (80-97); PLATELET COUNT 199 10^3/uL (150-450); RED CELL DISTRIBUTION WIDTH 22.2 % (11.5-14.0); WHITE BLOOD COUNT 5.6 10^3/uL (4.0-10.5)
[2018-11-10 05:48] LABS: ABSOLUTE LYMPHOCYTES# (MANUAL) 1.6 10^3/uL (0.5-4.7); ABSOLUTE MONOCYTES # (MANUAL) 0.4 10^3/uL (0.1-1.4); BASOPHILS % (MANUAL) 0 % (0-2); EOSINOPHILS % (MANUAL) 2 % (0-6); LYMPHOCYTES % (MANUAL) 28 % (13-45); MONOCYTES % (MANUAL) 8 % (3-13); NUCLEATED RED BLOOD CELLS 5 /100 WBC (0); SEGMENTED NEUTROPHILS % (MAN) 62 % (42-78); TOTAL CELLS COUNTED 100
[2018-11-10 05:49] LABS: PLATELET COMMENT ADEQUATE
[2018-11-10 05:50] LABS: ANISOCYTOSIS 2+; POIKILOCYTOSIS 1+; POLYCHROMASIA 2+
[2018-11-10 05:51] LABS: SCHISTOCYTES SLIGHT; SICKLE RED CELLS 2+; TARGET CELLS 1+
[2018-11-10] MEDS: NORMAL SALINE 1000 ML 1,000 ML IV PRN ×2 (07:49→14:25)
[2018-11-10] MEDS: IPRATROPIUM/ALBUTEROL 0.5-2.5 MG/3 ML AMPUL NEB SCH ×2 (08:21→21:14)
[2018-11-10] MEDS: FOLIC ACID 1 MG TABLET PO SCH (09:57)
[2018-11-10] MEDS: DOCUSATE SODIUM 100 MG CAPSULE PO SCH ×2 (09:57→17:26)
[2018-11-10] MEDS: HYDROXYUREA 500 MG CAPSULE PO SCH ×2 (09:57→17:26)
[2018-11-10] MEDS: FLUTICASONE NASAL SPRAY 50 MCG/SPRY 120 SPRAY/16 GM NASL SCH ×2 (10:23→21:13)
[2018-11-10] MEDS: LIDOCAINE 5% (700 MG) TRANSDERMAL ADH..PATCH TP SCH (10:23)
[2018-11-10] MEDS ORDERED: IBUPROFEN 600 MG TABLET PO PRN (11:59)
[2018-11-10] MEDS ORDERED: (PENDING PHARMACY ID) (Methadone Hcl [Dolophine Hcl] 5 MG) PO PRN (11:59)
[2018-11-10] MEDS ORDERED: METHADONE HCL 10 MG TABLET PO PRN (12:30)
--- NOTE | 2018-11-10 17:54 | PDOC CONSULTATION ---
Consultation Consult Date: 11/10/18 Provider Consulted: TONI BERRY Consult reason:: Hematology Oncology consultation was requested late this afternoon for patient well known to our service with Sickle Cell anemia and frequent pain crises. History of Present Illness Admission Date/PCP: 11/08/18 23:44 BETH MEDELLIN MD History of Present Illness: MARISA GARBER is a 37 year old male with longstanding sickle cell anemia. He has been maintaining his pain control with out patient infusions of fluids and narcotics, in addition to his regular PO regimen. However, his pain escalated and became much worse. He presented to the ED and was admitted early Saturday morning. He states that he tries very hard to stay out of the hospital and that pain is still not under control. He has severe muscle pain. No concerning features. No dyspnea or unusual chest pain. He is itching, but no nausea. Past Medical History Cardiac Medical History: Reports: None Denies: Atrial Fibrillation, Congestive Heart Failure, Coronary Artery Disease Pulmonary Medical History: Reports: Pneumonia Denies: Asthma, Bronchitis, Chronic Obstructive Pulmonary Disease (COPD), Tuberculosis EENT Medical History: Reports: None Neurological Medical History: Reports: Seizures Denies: Migraine Endocrine Medical History: Reports: None Denies: Diabetes Mellitus Type 1, Diabetes Mellitus Type 2 Renal/ Medical History: Reports: None Malignancy Medical History: Reports: None GI Medical History: Reports: None Denies: Cirrhosis, Hepatitis Musculoskeltal Medical History: Denies: Arthritis, Gout Skin Medical History: Reports: None Denies: Eczema, Psoriasis Psychiatric Medical History: Reports: Depression Traumatic Medical History: Reports: None Hematology: Reports: Anemia, Sickle Cell Disease Denies: Hemophilia, Bleeding Tendencies Infectious Medical History: Reports: None Past Surgical History Past Surgical History: Reports: Appendectomy, Vascular Surgery - L port placement, Other - Port placement Social History Lives with: Family Smoking Status: Unknown if Ever Smoked Frequency of Alcohol Use: None Hx Recreational Drug Use: No Drugs: None Hx Prescription Drug Abuse: No - Advance Directive Resuscitation Status: Full Code Family History Family History: Hypertension Parental Family History Reviewed: Yes Children Family History Reviewed: Yes Sibling(s) Family History Reviewed.: Yes Medication/Allergy Home Medications: Hydroxyurea [Hydrea 500 Mg Capsule] 1,500 mg PO SUTUTH 11/09/18 Hydroxyurea [Hydrea 500 Mg Capsule] 3,000 mg PO MOWEFR 11/09/18 Ibuprofen [Motrin 600 mg Tablet] 600 mg PO Q6HP PRN 11/09/18 Methadone HCl [Dolophine Hcl] 5 mg PO Q6HP PRN 11/09/18 Oxycodone HCl [Oxycodone HCl 10 MG Tablet] 10 mg PO Q8 11/09/18 Allergies/Adverse Reactions: famotidine [From Pepcid] Allergy (Severe, Verified 11/08/18 17:29) Anaphylaxis ketorolac tromethamine [From Toradol] Allergy (Severe, Verified 11/08/18 17:29) levofloxacin [From Levaquin] Allergy (Severe, Verified 11/08/18 17:29) meperidine HCl [From Demerol] Allergy (Severe, Verified 11/08/18 17:29) morphine [Morphine] Allergy (Severe, Verified 11/08/18 17:29) tramadol HCl [From Ultram] Allergy (Severe, Verified 11/08/18 17:29) amoxicillin [Amoxicillin] Allergy (Verified 11/08/18 17:29) fentanyl [Fentanyl] Allergy (Verified 11/08/18 17:29) latex [Latex] Allergy (Verified 11/08/18 17:29) ondansetron HCl [From Zofran] Allergy (Verified 11/08/18 17:29) Pork/Porcine Containing Products Allergy (Verified 11/08/18 17:29) Review of Systems Constitutional: ABSENT: fever(s), headache(s) Eyes: ABSENT: visual disturbances Ears: ABSENT: hearing changes Nose, Mouth, and Throat: ABSENT: sore throat Cardiovascular: ABSENT: chest pain Respiratory: ABSENT: dyspnea Gastrointestinal: ABSENT: constipation, nausea Genitourinary: ABSENT: dysuria Musculoskeletal: PRESENT: as per HPI Integumentary: PRESENT: pruritus Neurological: ABSENT: confusion, weakness Hematologic/Lymphatic: ABSENT: easy bruising Physical Exam Vital Signs: Temp Pulse Resp BP Pulse Ox 98.6 F 71 16 137/90 H 96 11/10/18 12:03 11/10/18 14:00 11/10/18 12:03 11/10/18 12:03 11/10/18 12:03 Intake & Output 11/09/18 11/10/18 11/11/18 06:59 06:59 06:59 Intake Total 1999 6383 1890 Output Total 1800 1100 Balance 1999 8376 790 Weight 90.2 kg General appearance: PRESENT: no acute distress, well-developed, well-nourished Head exam: PRESENT: normocephalic Eye exam: PRESENT: EOMI, PERRLA Neck exam: ABSENT: lymphadenopathy, tenderness Respiratory exam: PRESENT: clear to auscultation anastasiya, unlabored Cardiovascular exam: PRESENT: RRR. ABSENT: systolic murmur GI/Abdominal exam: PRESENT: normal bowel sounds, soft. ABSENT: tenderness Extremities exam: ABSENT: pedal edema Neurological exam: PRESENT: alert, awake Psychiatric exam: PRESENT: appropriate affect Skin exam: PRESENT: normal color Results Laboratory Results: 11/10/18 05:26 11/09/18 06:15 11/10/18 05:26 WBC 5.6 RBC 2.30 L Hgb 8.1 L Hct 23.5 L MCV 102 H MCH 35.4 H MCHC 34.6 RDW 22.2 H Plt Count 199 Seg Neutrophils % Not Reportable Lymphocytes % Not Reportable Monocytes % Not Reportable Eosinophils % Not Reportable Basophils % Not Reportable Absolute Neutrophils Not Reportable Absolute Lymphocytes Not Reportable Absolute Monocytes Not Reportable Absolute Eosinophils Not Reportable Absolute Basophils Not Reportable Impressions: Chest X-Ray 11/08/18 18:24 IMPRESSION: Cardiomegaly. Chronic bilateral interstitial changes consistent with interstitial fibrosis. Assessment & Plan - Diagnosis (1) Sickle cell anemia Qualifiers: Sickle-cell associated disorders: with unspecified crisis Qualified Code(s): D57.00 - Hb-SS disease with crisis, unspecified; D57.0 - Hb-SS disease with crisis Is this a current diagnosis for this admission?: Yes Plan: I will restart his methadone as it does not appear that he has had this for the past 36 hours. Continue IV fluids, Oxygen, and pain management. (2) DVT prophylaxis Is this a current diagnosis for this admission?: Yes Plan: He is allergic to porcine and latex, so will use TEDs and SCDs for now. (3) Itching Is this a current diagnosis for this admission?: Yes Plan: Change benadryl from PO to IV, as this works better for patient. - Plan Summary Plan Summary: I have ordered K-pad for heat to help muscles. He was encouraged to get up and walk in [place]. Dr. Medellin will return tomorrow morning.
[2018-11-10] MEDS: METHADONE HCL 10 MG TABLET PO SCH (18:35)
[2018-11-10] MEDS: DIPHENHYDRAMINE HCL 50 MG/ML VIAL IV PRN (19:34)
[2018-11-10] MEDS: PHARMACY COMMUNICATION ORDER MC SCH (21:14)
[2018-11-11] MEDS: HYDROMORPHONE HCL INJ/PF 2 MG/ML AMPULE IV PRN ×9 (00:01→23:38)
[2018-11-11] MEDS: DIPHENHYDRAMINE HCL 50 MG/ML VIAL IV PRN ×5 (00:01→21:08)
[2018-11-11] MEDS: METHADONE HCL 10 MG TABLET PO SCH ×2 (06:10→17:28)
[2018-11-11 06:32] LABS: HEMATOCRIT 24.2 % (37.9-51.0); HEMOGLOBIN 8.3 g/dL (13.5-17.0); MEAN CORPUSCULAR HEMOGLOBIN 34.9 pg (27.0-33.4); MEAN CORPUSCULAR HGB CONC 34.2 g/dL (32.0-36.0); MEAN CORPUSCULAR VOLUME 102 fl (80-97); PLATELET COUNT 249 10^3/uL (150-450); RED BLOOD COUNT 2.37 10^6/uL (4.35-5.55); RED CELL DISTRIBUTION WIDTH 21.6 % (11.5-14.0); WHITE BLOOD COUNT 5.1 10^3/uL (4.0-10.5)
[2018-11-11 06:59] LABS: ANION GAP 6 (5-19); BLOOD UREA NITROGEN 7 mg/dL (7-20); CALCIUM 8.6 mg/dL (8.4-10.2); CARBON DIOXIDE 29 mmol/L (22-30); CHLORIDE 105 mmol/L (98-107); GLUCOSE 91 mg/dL (75-110); POTASSIUM 4.2 mmol/L (3.6-5.0)
--- NOTE | 2018-11-11 07:43 | PDOC PROGRESS REPORT ---
Subjective Progress Note for:: 11/11/18 Subjective:: Pt still w/ considerable pain, told pt I will increase his dilaudid today Reason For Visit: SSC PAIN Physical Exam Vital Signs: Temp Pulse Resp BP Pulse Ox 99.0 F 71 17 123/85 87 L 11/11/18 01:25 11/11/18 07:00 11/11/18 01:25 11/11/18 01:25 11/11/18 01:25 Intake & Output 11/10/18 11/11/18 11/12/18 06:59 06:59 06:59 Intake Total 6383 2210 Output Total 1800 4100 Balance 4583 -1890 Weight 91.3 kg General appearance: PRESENT: no acute distress, well-developed, well-nourished Head exam: PRESENT: atraumatic, normocephalic Eye exam: PRESENT: conjunctiva pink, EOMI, PERRLA. ABSENT: scleral icterus Ear exam: PRESENT: normal external ear exam Mouth exam: PRESENT: moist, tongue midline Neck exam: ABSENT: carotid bruit, JVD, lymphadenopathy, thyromegaly Respiratory exam: PRESENT: clear to auscultation anastasiya. ABSENT: rales, rhonchi, wheezes Cardiovascular exam: PRESENT: RRR. ABSENT: diastolic murmur, rubs, systolic murmur Pulses: PRESENT: normal dorsalis pedis pul Vascular exam: PRESENT: normal capillary refill GI/Abdominal exam: PRESENT: normal bowel sounds, soft. ABSENT: distended, guarding, mass, organolmegaly, rebound, tenderness Rectal exam: PRESENT: deferred Extremities exam: PRESENT: full ROM. ABSENT: calf tenderness, clubbing, pedal edema Neurological exam: PRESENT: alert, awake, oriented to person, oriented to place, oriented to time, oriented to situation, CN II-XII grossly intact. ABSENT: motor sensory deficit Psychiatric exam: PRESENT: appropriate affect, normal mood. ABSENT: homicidal ideation, suicidal ideation Skin exam: PRESENT: dry, intact, warm. ABSENT: cyanosis, rash Results Laboratory Results: 11/11/18 06:15 11/11/18 11/11/18 06:15 06:15 Seg Neutrophils % Not Reportable Lymphocytes % Not Reportable Monocytes % Not Reportable Eosinophils % Not Reportable Basophils % Not Reportable Absolute Neutrophils Not Reportable Absolute Lymphocytes Not Reportable Absolute Monocytes Not Reportable Absolute Eosinophils Not Reportable Absolute Basophils Not Reportable Sodium 139.7 Potassium 4.2 Chloride 105 Carbon Dioxide 29 Anion Gap 6 BUN 7 Creatinine 0.61 Est GFR ( Amer) > 60 Est GFR (Non-Af Amer) > 60 Glucose 91 Calcium 8.6 Impressions: Chest X-Ray 11/08/18 18:24 IMPRESSION: Cardiomegaly. Chronic bilateral interstitial changes consistent with interstitial fibrosis. Assessment & Plan - Diagnosis (1) Sickle cell crisis Is this a current diagnosis for this admission?: Yes Plan: Increase dilaudid today, cont other supportive measures (2) Sickle cell anemia Qualifiers: Sickle-cell associated disorders: with unspecified crisis Qualified Code(s): D57.00 - Hb-SS disease with crisis, unspecified; D57.0 - Hb-SS disease with crisis Is this a current diagnosis for this admission?: Yes Plan: Hb stable yesterday, pending today, would consider transfusion if drops <6 (3) Anemia Qualifiers: Anemia type: acquired or hereditary hemolytic anemia Hemolytic anemia type: other hemoglobinopathy Qualified Code(s): D58.2 - Other hemoglobinopathies Is this a current diagnosis for this admission?: Yes Plan: Transfuse criteria as above - Time Time Spent with patient: 35 or more minutes - Inpatient Certification Based on my medical assessment, after consideration of the patient's comorbidities, presenting symptoms, or acuity I expect that the services needed warrant INPATIENT care.: Yes I certify that my determination is in accordance with my understanding of Medicare's requirements for reasonable and necessary INPATIENT services [42 CFR 412.3e].: Yes Medical Necessity: Need For IV Fluids, Need for Pain Control
[2018-11-11 07:44] LABS: ABSOLUTE LYMPHOCYTES# (MANUAL) 1.9 10^3/uL (0.5-4.7); ABSOLUTE MONOCYTES # (MANUAL) 0.6 10^3/uL (0.1-1.4); BASOPHILS % (MANUAL) 1 % (0-2); EOSINOPHILS % (MANUAL) 3 % (0-6); LYMPHOCYTES % (MANUAL) 36 % (13-45); MONOCYTES % (MANUAL) 11 % (3-13); NUCLEATED RED BLOOD CELLS 5 /100 WBC (0); SEGMENTED NEUTROPHILS % (MAN) 48 % (42-78); TOTAL CELLS COUNTED 100
[2018-11-11 07:45] LABS: POLYCHROMASIA 1+
[2018-11-11 07:46] LABS: ANISOCYTOSIS 3+; HOWELL-JOLLY BODIES PRESENT; PLATELET COMMENT ADEQUATE; SCHISTOCYTES 1+; SICKLE RED CELLS 2+; TARGET CELLS 1+
[2018-11-11] MEDS ORDERED: HYDROMORPHONE HCL INJ/PF 2 MG/ML AMPULE IV PRN (08:00)
--- NOTE | 2018-11-11 08:09 | Progress Note Acknowledgement ---
Progress Note Acknowledgement Progess Note Acknowledgement: I, the undersigned member of the medical staff with appropriate privileges and with supervisory authority over [Sukh New], a dependent practice allied health professional, acknowledge that I have reviewed the progress notes entered on this patient, and in my professional judgment believe that the assessment made and/or any care evidenced was appropriate
--- NOTE | 2018-11-11 08:12 | PDOC PROGRESS REPORT ---
Subjective Progress Note for:: 11/11/18 Subjective:: Continued pain Reason For Visit: SSC PAIN Physical Exam Vital Signs: Temp Pulse Resp BP Pulse Ox 99.0 F 71 17 123/85 87 L 11/11/18 01:25 11/11/18 07:00 11/11/18 01:25 11/11/18 01:25 11/11/18 01:25 Intake & Output 11/10/18 11/11/18 11/12/18 06:59 06:59 06:59 Intake Total 6383 2210 Output Total 1800 4100 Balance 4583 -1890 Weight 91.3 kg General appearance: PRESENT: no acute distress, well-developed, well-nourished Head exam: PRESENT: atraumatic, normocephalic Eye exam: PRESENT: conjunctiva pink, EOMI, PERRLA. ABSENT: scleral icterus Ear exam: PRESENT: normal external ear exam Mouth exam: PRESENT: moist, tongue midline Neck exam: ABSENT: carotid bruit, JVD, lymphadenopathy, thyromegaly Respiratory exam: PRESENT: clear to auscultation anastasiya. ABSENT: rales, rhonchi, wheezes Cardiovascular exam: PRESENT: RRR. ABSENT: diastolic murmur, rubs, systolic murmur Pulses: PRESENT: normal dorsalis pedis pul Vascular exam: PRESENT: normal capillary refill GI/Abdominal exam: PRESENT: normal bowel sounds, soft. ABSENT: distended, guarding, mass, organolmegaly, rebound, tenderness Rectal exam: PRESENT: deferred Extremities exam: PRESENT: full ROM. ABSENT: calf tenderness, clubbing, pedal edema Neurological exam: PRESENT: alert, awake, oriented to person, oriented to place, oriented to time, oriented to situation, CN II-XII grossly intact. ABSENT: motor sensory deficit Psychiatric exam: PRESENT: appropriate affect, normal mood. ABSENT: homicidal ideation, suicidal ideation Skin exam: PRESENT: dry, intact, warm. ABSENT: cyanosis, rash Results Laboratory Results: 11/11/18 06:15 11/11/18 06:15 11/11/18 11/11/18 06:15 06:15 WBC 5.1 RBC 2.37 L Hgb 8.3 L Hct 24.2 L MCV 102 H MCH 34.9 H MCHC 34.2 RDW 21.6 H Plt Count 249 Seg Neutrophils % Not Reportable Lymphocytes % Not Reportable Monocytes % Not Reportable Eosinophils % Not Reportable Basophils % Not Reportable Absolute Neutrophils Not Reportable Absolute Lymphocytes Not Reportable Absolute Monocytes Not Reportable Absolute Eosinophils Not Reportable Absolute Basophils Not Reportable Sodium 139.7 Potassium 4.2 Chloride 105 Carbon Dioxide 29 Anion Gap 6 BUN 7 Creatinine 0.61 Est GFR ( Amer) > 60 Est GFR (Non-Af Amer) > 60 Glucose 91 Calcium 8.6 Impressions: Chest X-Ray 11/08/18 18:24 IMPRESSION: Cardiomegaly. Chronic bilateral interstitial changes consistent with interstitial fibrosis. Assessment and Plan - Diagnosis (1) Sickle cell crisis Is this a current diagnosis for this admission?: Yes Plan: Patient is admitted to the medical floor and continuous cardiac telemetry. He is provided aggressive IV fluid hydration. Supplemental oxygen 2 L/min via nasal cannula. Continue home dose hydroxyurea 1000 mg twice daily Continue daily folic acid. Benadryl 50 mg p.o. every 6 as needed Baclofen 10 mg every 6 as needed Pain regimen includes: Lidoderm patches, ibuprofen 600 mg every 8 scheduled, oxycodone 10 mg every 4 PRN, Tylenol 650 mg every 4 PRN, Dilaudid 2 mg p.o. every 4 scheduled, Dilaudid 2 mg IV every 2 as needed. Heating pad as needed. 11/11/2018-patient saw by Dr. Garcia on hematology this a.m. Dilaudid increased to 3.5 mill grams every 2 hours. We will continue oxygenation as well as hydr ation with normal saline. We will continue to follow may change plan of care as appropriate. (2) Sickle cell anemia Qualifiers: Sickle-cell associated disorders: with unspecified crisis Qualified Code(s): D57.00 - Hb-SS disease with crisis, unspecified; D57.0 - Hb-SS disease with crisis Is this a current diagnosis for this admission?: Yes Plan: Management of crisis as above. Daily CBC. Consider Hematology consultation. 11/11/2018-continue daily CBCs. Oncology/hematology is following. Will await further recommendations. - Time Time Spent with patient: Less than 15 minutes - Inpatient Certification Post Hospital Care: Other - Continued IV hydration and IV pain management.
[2018-11-11] MEDS: IPRATROPIUM/ALBUTEROL 0.5-2.5 MG/3 ML AMPUL NEB SCH ×2 (08:14→20:35)
[2018-11-11] MEDS: FLUTICASONE NASAL SPRAY 50 MCG/SPRY 120 SPRAY/16 GM NASL SCH ×2 (10:00→21:12)
[2018-11-11] MEDS: LIDOCAINE 5% (700 MG) TRANSDERMAL ADH..PATCH TP SCH (10:01)
[2018-11-11] MEDS: DOCUSATE SODIUM 100 MG CAPSULE PO SCH ×2 (10:04→17:28)
[2018-11-11] MEDS: FOLIC ACID 1 MG TABLET PO SCH (10:04)
[2018-11-11] MEDS: HYDROXYUREA 500 MG CAPSULE PO SCH ×2 (10:04→17:28)
[2018-11-11] MEDS: NORMAL SALINE 1000 ML 1,000 ML IV PRN (11:29)
[2018-11-11] MEDS: PHARMACY COMMUNICATION ORDER MC SCH (21:13)
[2018-11-12] MEDS: DIPHENHYDRAMINE HCL 50 MG/ML VIAL IV PRN ×5 (01:43→20:22)
[2018-11-12] MEDS: HYDROMORPHONE HCL INJ/PF 2 MG/ML AMPULE IV PRN ×10 (01:46→22:25)
[2018-11-12] MEDS: NORMAL SALINE 1000 ML 1,000 ML IV PRN ×2 (01:47→18:25)
[2018-11-12] MEDS: METHADONE HCL 10 MG TABLET PO SCH ×2 (05:21→17:47)
[2018-11-12 07:02] LABS: ABSOLUTE RETICS # 0.135 10^6/uL (0.028-0.122); HEMATOCRIT 25.4 % (37.9-51.0); HEMOGLOBIN 8.8 g/dL (13.5-17.0); MEAN CORPUSCULAR HEMOGLOBIN 35.2 pg (27.0-33.4); MEAN CORPUSCULAR HGB CONC 34.5 g/dL (32.0-36.0); MEAN CORPUSCULAR VOLUME 102 fl (80-97); PLATELET COUNT 330 10^3/uL (150-450); RED BLOOD COUNT 2.48 10^6/uL (4.35-5.55); RED CELL DISTRIBUTION WIDTH 21.3 % (11.5-14.0); RETICULOCYTE COUNT (AUTO) 5.42 % (0.66-2.85); WHITE BLOOD COUNT 6.1 10^3/uL (4.0-10.5)
[2018-11-12 07:21] LABS: ANION GAP 9 (5-19); BLOOD UREA NITROGEN 7 mg/dL (7-20); CALCIUM 8.3 mg/dL (8.4-10.2); CARBON DIOXIDE 27 mmol/L (22-30); CHLORIDE 103 mmol/L (98-107); GLUCOSE 117 mg/dL (75-110); POTASSIUM 4.2 mmol/L (3.6-5.0)
--- NOTE | 2018-11-12 07:23 | PDOC PROGRESS REPORT ---
Subjective Progress Note for:: 11/12/18 Subjective:: Yesterday with increased dose pt had more sedation so requested to go back to 3mg dose by afternoon, feeling better this am, encouraged ambulation today as he really has not been out of bed much since admission. Reason For Visit: SSC PAIN Physical Exam Vital Signs: Temp Pulse Resp BP Pulse Ox 98.3 F 71 17 145/90 H 94 11/11/18 23:43 11/12/18 02:00 11/11/18 23:43 11/11/18 23:43 11/11/18 23:43 Intake & Output 11/11/18 11/12/18 11/13/18 06:59 06:59 06:59 Intake Total 3210 3440 Output Total 4100 4100 Balance -890 -660 Weight 91.3 kg 90 kg General appearance: PRESENT: no acute distress, well-developed, well-nourished Head exam: PRESENT: atraumatic, normocephalic Eye exam: PRESENT: conjunctiva pink, EOMI, PERRLA. ABSENT: scleral icterus Ear exam: PRESENT: normal external ear exam Mouth exam: PRESENT: moist, tongue midline Neck exam: ABSENT: carotid bruit, JVD, lymphadenopathy, thyromegaly Respiratory exam: PRESENT: clear to auscultation anastasiya. ABSENT: rales, rhonchi, wheezes Cardiovascular exam: PRESENT: RRR. ABSENT: diastolic murmur, rubs, systolic murmur Pulses: PRESENT: normal dorsalis pedis pul Vascular exam: PRESENT: normal capillary refill GI/Abdominal exam: PRESENT: normal bowel sounds, soft. ABSENT: distended, guarding, mass, organolmegaly, rebound, tenderness Rectal exam: PRESENT: deferred Extremities exam: PRESENT: full ROM. ABSENT: calf tenderness, clubbing, pedal edema Neurological exam: PRESENT: alert, awake, oriented to person, oriented to place, oriented to time, oriented to situation, CN II-XII grossly intact. ABSENT: motor sensory deficit Psychiatric exam: PRESENT: appropriate affect, normal mood. ABSENT: homicidal ideation, suicidal ideation Skin exam: PRESENT: dry, intact, warm. ABSENT: cyanosis, rash Results Laboratory Results: 11/12/18 05:51 11/11/18 11/12/18 06:15 05:51 WBC 5.1 6.1 RBC 2.37 L 2.48 L Hgb 8.3 L 8.8 L Hct 24.2 L 25.4 L MCV 102 H 102 H MCH 34.9 H 35.2 H MCHC 34.2 34.5 RDW 21.6 H 21.3 H Plt Count 249 330 Retic Count (auto) 5.42 H Absolute Retic 0.135 H Impressions: Chest X-Ray 11/08/18 18:24 IMPRESSION: Cardiomegaly. Chronic bilateral interstitial changes consistent with interstitial fibrosis. Assessment & Plan - Diagnosis (1) Sickle cell crisis Is this a current diagnosis for this admission?: Yes Plan: Seems to be improving now, con't same supportive measures. (2) Sickle cell anemia Qualifiers: Sickle-cell associated disorders: with unspecified crisis Qualified Cod e(s): D57.00 - Hb-SS disease with crisis, unspecified; D57.0 - Hb-SS disease with crisis Is this a current diagnosis for this admission?: Yes Plan: Hb stable, hold on transfusion (3) Anemia Qualifiers: Anemia type: acquired or hereditary hemolytic anemia Hemolytic anemia type: other hemoglobinopathy Qualified Code(s): D58.2 - Other hemoglobinopathies Is this a current diagnosis for this admission?: Yes Plan: Hb stable - Time Time Spent with patient: 15-24 minutes - Inpatient Certification Based on my medical assessment, after consideration of the patient's comorbidities, presenting symptoms, or acuity I expect that the services needed warrant INPATIENT care.: Yes I certify that my determination is in accordance with my understanding of Medicare's requirements for reasonable and necessary INPATIENT services [42 CFR 412.3e].: Yes Medical Necessity: Need For IV Fluids, Need for Pain Control
--- NOTE | 2018-11-12 08:19 | PDOC PROGRESS REPORT ---
Subjective Progress Note for:: 11/12/18 Subjective:: Continued pain 11/12/2018-pain continues. Reason For Visit: SSC PAIN Physical Exam Vital Signs: Temp Pulse Resp BP Pulse Ox 98.4 F 77 12 130/75 H 93 11/12/18 07:00 11/12/18 07:00 11/12/18 07:00 11/12/18 07:00 11/12/18 07:00 Intake & Output 11/11/18 11/12/18 11/13/18 06:59 06:59 06:59 Intake Total 3210 3440 Output Total 4100 4100 Balance -890 -660 Weight 91.3 kg 90 kg General appearance: PRESENT: no acute distress, well-developed, well-nourished Head exam: PRESENT: atraumatic, normocephalic Eye exam: PRESENT: conjunctiva pink, EOMI, PERRLA. ABSENT: scleral icterus Ear exam: PRESENT: normal external ear exam Mouth exam: PRESENT: moist, tongue midline Neck exam: ABSENT: carotid bruit, JVD, lymphadenopathy, thyromegaly Respiratory exam: PRESENT: clear to auscultation anastasiya. ABSENT: rales, rhonchi, wheezes Cardiovascular exam: PRESENT: RRR. ABSENT: diastolic murmur, rubs, systolic murmur Pulses: PRESENT: normal dorsalis pedis pul Vascular exam: PRESENT: normal capillary refill GI/Abdominal exam: PRESENT: normal bowel sounds, soft. ABSENT: distended, guarding, mass, organolmegaly, rebound, tenderness Rectal exam: PRESENT: deferred Extremities exam: PRESENT: full ROM. ABSENT: calf tenderness, clubbing, pedal edema Neurological exam: PRESENT: alert, awake, oriented to person, oriented to place, oriented to time, oriented to situation, CN II-XII grossly intact. ABSENT: motor sensory deficit Psychiatric exam: PRESENT: appropriate affect, normal mood. ABSENT: homicidal ideation, suicidal ideation Skin exam: PRESENT: dry, intact, warm. ABSENT: cyanosis, rash Results Laboratory Results: 11/12/18 05:51 11/12/18 05:51 11/12/18 11/12/18 05:51 05:51 WBC 6.1 RBC 2.48 L Hgb 8.8 L Hct 25.4 L MCV 102 H MCH 35.2 H MCHC 34.5 RDW 21.3 H Plt Count 330 Retic Count (auto) 5.42 H Absolute Retic 0.135 H Sodium 138.5 Potassium 4.2 Chloride 103 Carbon Dioxide 27 Anion Gap 9 BUN 7 Creatinine 0.60 Est GFR ( Amer) > 60 Est GFR (Non-Af Amer) > 60 Glucose 117 H Calcium 8.3 L Impressions: Chest X-Ray 11/08/18 18:24 IMPRESSION: Cardiomegaly. Chronic bilateral interstitial changes consistent with interstitial fibrosis. Assessment and Plan - Diagnosis (1) Sickle cell crisis Is this a current diagnosis for this admission?: Yes Plan: Patient is admitted to the medical floor and continuous cardiac telemetry. He is provided aggressive IV fluid hydration. Supplemental oxygen 2 L/min via nasal cannula. Continue home dose hydroxyurea 1000 mg twice daily Continue daily folic acid. Benadryl 50 mg p.o. every 6 as needed Baclofen 10 mg every 6 as needed Pain regimen includes: Lidoderm patches, ibuprofen 600 mg every 8 scheduled, oxycodone 10 mg every 4 PRN, Tylenol 650 mg every 4 PRN, Dilaudid 2 mg p.o. every 4 scheduled, Dilaudid 2 mg IV every 2 as needed. Heating pad as needed. 11/11/2018-patient saw by Dr. Garcia on hematology this a.m. Dilaudid increased to 3.5 mill grams every 2 hours. We will continue oxygenation as well as hydration with normal saline. We will continue to follow may change plan of care as appropriate. 11/12/2018-patient evaluated by hematology this a.m. Reticular site count remains high at 5. Continue current therapy and supportive measures. Decrease IV fluids to 100 mL/h (2) Sickle cell anemia Qualifiers: Sickle-cell associated disorders: with unspecified crisis Qualified Code(s): D57.00 - Hb-SS disease with crisis, unspecified; D57.0 - Hb-SS disease with crisis Is this a current diagnosis for this admission?: Yes Plan: Management of crisis as above. Daily CBC. Consider Hematology consultation. 11/11/2018-continue daily CBCs. Oncology/hematology is following. Will await further recommendations. 11/12/2018-hemoglobin stable. Hold transfusion. - Time Time Spent with patient: Less than 15 minutes - Inpatient Certification Based on my medical assessment, after consideration of the patient's comorbidities, presenting symptoms, or acuity I expect that the services needed warrant INPATIENT care.: Yes I certify that my determination is in accordance with my understanding of Medicare's requirements for reasonable and necessary INPATIENT services [42 CFR 412.3e].: Yes Medical Necessity: Other - IV fluids and IV pain control.
[2018-11-12] MEDS: IPRATROPIUM/ALBUTEROL 0.5-2.5 MG/3 ML AMPUL NEB SCH ×2 (08:52→20:46)
[2018-11-12] MEDS: LIDOCAINE 5% (700 MG) TRANSDERMAL ADH..PATCH TP SCH (10:31)
[2018-11-12] MEDS: HYDROXYUREA 500 MG CAPSULE PO SCH ×2 (10:38→17:47)
[2018-11-12] MEDS: FOLIC ACID 1 MG TABLET PO SCH (10:38)
[2018-11-12] MEDS: DOCUSATE SODIUM 100 MG CAPSULE PO SCH ×2 (10:38→17:47)
[2018-11-12] MEDS: FLUTICASONE NASAL SPRAY 50 MCG/SPRY 120 SPRAY/16 GM NASL SCH ×2 (10:39→21:15)
[2018-11-12] MEDS: PHARMACY COMMUNICATION ORDER MC SCH (21:15)
[2018-11-13] MEDS: DIPHENHYDRAMINE HCL 50 MG/ML VIAL IV PRN ×5 (00:27→20:15)
[2018-11-13] MEDS: HYDROMORPHONE HCL INJ/PF 2 MG/ML AMPULE IV PRN ×10 (00:29→22:43)
[2018-11-13] MEDS: OXYCODONE HCL IR 5 MG TABLET PO PRN (02:01)
[2018-11-13] MEDS: NORMAL SALINE 1000 ML 1,000 ML IV PRN ×2 (04:25→15:17)
[2018-11-13] MEDS: METHADONE HCL 10 MG TABLET PO SCH ×2 (05:08→18:03)
--- NOTE | 2018-11-13 08:31 | PDOC PROGRESS REPORT ---
Subjective Progress Note for:: 11/13/18 Subjective:: Continued pain 11/12/2018-pain continues. 11/13/2018-no complaints this a.m. Reason For Visit: SSC PAIN Physical Exam Vital Signs: Temp Pulse Resp BP Pulse Ox 98.7 F 89 17 127/78 H 94 11/12/18 19:21 11/13/18 02:00 11/12/18 19:21 11/12/18 19:21 11/12/18 19:21 Intake & Output 11/12/18 11/13/18 11/14/18 06:59 06:59 06:59 Intake Total 3440 3640 Output Total 4100 3850 Balance -660 -210 Weight 90 kg 91.2 kg General appearance: PRESENT: no acute distress, well-developed, well-nourished Head exam: PRESENT: atraumatic, normocephalic Eye exam: PRESENT: conjunctiva pink, EOMI, PERRLA. ABSENT: scleral icterus Ear exam: PRESENT: normal external ear exam Mouth exam: PRESENT: moist, tongue midline Neck exam: ABSENT: carotid bruit, JVD, lymphadenopathy, thyromegaly Respiratory exam: PRESENT: clear to auscultation anastasiya. ABSENT: rales, rhonchi, wheezes Cardiovascular exam: PRESENT: RRR. ABSENT: diastolic murmur, rubs, systolic m urmur Pulses: PRESENT: normal dorsalis pedis pul Vascular exam: PRESENT: normal capillary refill GI/Abdominal exam: PRESENT: normal bowel sounds, soft. ABSENT: distended, guarding, mass, organolmegaly, rebound, tenderness Rectal exam: PRESENT: deferred Extremities exam: PRESENT: full ROM. ABSENT: calf tenderness, clubbing, pedal edema Neurological exam: PRESENT: alert, awake, oriented to person, oriented to place, oriented to time, oriented to situation, CN II-XII grossly intact. ABSENT: motor sensory deficit Psychiatric exam: PRESENT: appropriate affect, normal mood. ABSENT: homicidal ideation, suicidal ideation Skin exam: PRESENT: dry, intact, warm. ABSENT: cyanosis, rash Results Laboratory Results: 11/12/18 05:51 11/12/18 05:51 Impressions: Chest X-Ray 11/08/18 18:24 IMPRESSION: Cardiomegaly. Chronic bilateral interstitial changes consistent with interstitial fibrosis. Assessment and Plan - Diagnosis (1) Sickle cell crisis Is this a current diagnosis for this admission?: Yes Plan: Patient is admitted to the medical floor and continuous cardiac telemetry. He is provided aggressive IV fluid hydration. Supplemental oxygen 2 L/min via nasal cannula. Continue home dose hydroxyurea 1000 mg twice daily Continue daily folic acid. Benadryl 50 mg p.o. every 6 as needed Baclofen 10 mg every 6 as needed Pain regimen includes: Lidoderm patches, ibuprofen 600 mg every 8 scheduled, oxycodone 10 mg every 4 PRN, Tylenol 650 mg every 4 PRN, Dilaudid 2 mg p.o. every 4 scheduled, Dilaudid 2 mg IV every 2 as needed. Heating pad as needed. 11/11/2018-patient saw by Dr. Garcia on hematology this a.m. Dilaudid increased to 3.5 mill grams every 2 hours. We will continue oxygenation as well as hydration with normal saline. We will continue to follow may change plan of care as appropriate. 11/12/2018-patient evaluated by hematology this a.m. Reticular site count remains high at 5. Continue current therapy and supportive measures. Decrease IV fluids to 100 mL/h 11/13/2018-continue Dilaudid and IV hydration. Repeat CBC and reticular site count in a.m. (2) Sickle cell anemia Qualifiers: Sickle-cell associated disorders: with unspecified crisis Qualified Code(s): D57.00 - Hb-SS disease with crisis, unspecified; D57.0 - Hb-SS disease with crisis Is this a current diagnosis for this admission?: Yes Plan: Management of crisis as above. Daily CBC. Consider Hematology consultation. 11/11/2018-continue daily CBCs. Oncology/hematology is following. Will await further recommendations. 11/12/2018-hemoglobin stable. Hold transfusion. 11/13/2018-repeat CBC in a.m. holding transfusion at this time. - Time Time Spent with patient: Less than 15 minutes - Inpatient Certification Medical Necessity: Other - IV hydration and IV pain management.
[2018-11-13] MEDS: IPRATROPIUM/ALBUTEROL 0.5-2.5 MG/3 ML AMPUL NEB SCH ×2 (09:12→21:31)
[2018-11-13] MEDS: FLUTICASONE NASAL SPRAY 50 MCG/SPRY 120 SPRAY/16 GM NASL SCH ×2 (09:23→21:54)
[2018-11-13] MEDS: LIDOCAINE 5% (700 MG) TRANSDERMAL ADH..PATCH TP SCH (09:24)
[2018-11-13] MEDS: FOLIC ACID 1 MG TABLET PO SCH (09:29)
[2018-11-13] MEDS: HYDROXYUREA 500 MG CAPSULE PO SCH ×2 (09:29→17:58)
[2018-11-13] MEDS: DOCUSATE SODIUM 100 MG CAPSULE PO SCH ×2 (09:29→17:58)
[2018-11-13 09:55] LABS: HEMATOCRIT 26.6 % (37.9-51.0); HEMOGLOBIN 9.1 g/dL (13.5-17.0); MEAN CORPUSCULAR HEMOGLOBIN 34.6 pg (27.0-33.4); MEAN CORPUSCULAR HGB CONC 34.3 g/dL (32.0-36.0); MEAN CORPUSCULAR VOLUME 101 fl (80-97); PLATELET COUNT 457 10^3/uL (150-450); RED BLOOD COUNT 2.64 10^6/uL (4.35-5.55); RED CELL DISTRIBUTION WIDTH 21.9 % (11.5-14.0); WHITE BLOOD COUNT 7.3 10^3/uL (4.0-10.5)
--- NOTE | 2018-11-13 10:05 | PDOC PROGRESS REPORT ---
Subjective Progress Note for:: 11/13/18 Subjective:: Patient states that his pain is improving. He does not wish to make any changes today. He is still fixated on the problems on admission with the staff. He states that he had a long discussion with Dr. Medellin about putting all this aside and focusing on his health at this point. Reason For Visit: SSC PAIN Physical Exam Vital Signs: Temp Pulse Resp BP Pulse Ox 98.5 F 77 16 132/79 H 93 11/13/18 08:10 11/13/18 09:12 11/13/18 09:12 11/13/18 08:10 11/13/18 09:12 Intake & Output 11/12/18 11/13/18 11/14/18 06:59 06:59 06:59 Intake Total 3440 3640 Output Total 4100 3850 Balance -660 -210 Weight 90 kg 91.2 kg General appearance: PRESENT: no acute distress, well-developed, well-nourished Head exam: PRESENT: normocephalic Respiratory exam: PRESENT: unlabored Extremities exam: ABSENT: pedal edema Neurological exam: PRESENT: alert, awake Psychiatric exam: PRESENT: appropriate affect Skin exam: PRESENT: normal color Results Impressions: Chest X-Ray 11/08/18 18:24 IMPRESSION: Cardiomegaly. Chronic bilateral interstitial changes consistent with interstitial fibrosis. Assessment & Plan - Diagnosis (1) Sickle cell anemia Qualifiers: Sickle-cell associated disorders: with unspecified crisis Qualified Code(s): D57.00 - Hb-SS disease with crisis, unspecified; D57.0 - Hb-SS disease with crisis Is this a current diagnosis for this admission?: Yes Plan: No changes today. He is wearing his oxygen and is drinking plenty of fluids. (2) DVT prophylaxis Is this a current diagnosis for this admission?: Yes (3) Itching Is this a current diagnosis for this admission?: Yes - Plan Summary Plan Summary: No changes today. Continue current pain meds.
[2018-11-13 10:11] LABS: ANION GAP 8 (5-19); BLOOD UREA NITROGEN 4 mg/dL (7-20); CALCIUM 8.8 mg/dL (8.4-10.2); CARBON DIOXIDE 29 mmol/L (22-30); CHLORIDE 103 mmol/L (98-107); GLUCOSE 115 mg/dL (75-110); POTASSIUM 4.2 mmol/L (3.6-5.0)
[2018-11-13] MEDS: PHARMACY COMMUNICATION ORDER MC SCH (21:54)
[2018-11-14] MEDS: DIPHENHYDRAMINE HCL 50 MG/ML VIAL IV PRN ×5 (00:57→19:31)
[2018-11-14] MEDS: HYDROMORPHONE HCL INJ/PF 2 MG/ML AMPULE IV PRN ×11 (00:57→23:59)
[2018-11-14] MEDS: NORMAL SALINE 1000 ML 1,000 ML IV PRN ×3 (01:01→20:15)
[2018-11-14] MEDS: METHADONE HCL 10 MG TABLET PO SCH ×2 (05:35→18:44)
[2018-11-14 07:20] LABS: ABSOLUTE RETICS # 0.199 10^6/uL (0.028-0.122); RETICULOCYTE COUNT (AUTO) 7.71 % (0.66-2.85)
[2018-11-14] MEDS: IPRATROPIUM/ALBUTEROL 0.5-2.5 MG/3 ML AMPUL NEB SCH ×2 (07:46→20:44)
--- NOTE | 2018-11-14 08:22 | PDOC PROGRESS REPORT ---
Subjective Progress Note for:: 11/14/18 Subjective:: Doing better but still w/ pain, we will plan to keep pain control same today, last hb was improved, told pt to walk the [facility]z Reason For Visit: SSC PAIN Physical Exam Vital Signs: Temp Pulse Resp BP Pulse Ox 98.4 F 87 16 122/73 100 11/14/18 00:00 11/14/18 02:00 11/14/18 00:00 11/14/18 00:00 11/14/18 00:00 Intake & Output 11/13/18 11/14/18 11/15/18 06:59 06:59 06:59 Intake Total 3640 3473 Output Total 3850 2300 Balance -210 1173 Weight 91.2 kg 92.2 kg General appearance: PRESENT: no acute distress, well-developed, well-nourished Head exam: PRESENT: atraumatic, normocephalic Eye exam: PRESENT: conjunctiva pink, EOMI, PERRLA. ABSENT: scleral icterus Ear exam: PRESENT: normal external ear exam Mouth exam: PRESENT: moist, tongue midline Neck exam: ABSENT: carotid bruit, JVD, lymphadenopathy, thyromegaly Respiratory exam: PRESENT: clear to auscultation anastasiya. ABSENT: rales, rhonchi, wheezes Cardiovascular exam: PRESENT: RRR. ABSENT: diastolic murmur, rubs, systolic murmur Pulses: PRESENT: normal dorsalis pedis pul Vascular exam: PRESENT: normal capillary refill GI/Abdominal exam: PRESENT: normal bowel sounds, soft. ABSENT: distended, guar ding, mass, organolmegaly, rebound, tenderness Rectal exam: PRESENT: deferred Extremities exam: PRESENT: full ROM. ABSENT: calf tenderness, clubbing, pedal edema Neurological exam: PRESENT: alert, awake, oriented to person, oriented to place, oriented to time, oriented to situation, CN II-XII grossly intact. ABSENT: motor sensory deficit Psychiatric exam: PRESENT: appropriate affect, normal mood. ABSENT: homicidal ideation, suicidal ideation Skin exam: PRESENT: dry, intact, warm. ABSENT: cyanosis, rash Results Laboratory Results: 11/13/18 09:35 11/13/18 09:35 11/13/18 11/13/18 11/14/18 09:35 09:35 06:52 WBC 7.3 RBC 2.64 L Hgb 9.1 L Hct 26.6 L MCV 101 H MCH 34.6 H MCHC 34.3 RDW 21.9 H Plt Count 457 H Retic Count (auto) 7.71 H Absolute Retic 0.199 H Sodium 139.6 Potassium 4.2 Chloride 103 Carbon Dioxide 29 Anion Gap 8 BUN 4 L Creatinine 0.59 Est GFR ( Amer) > 60 Est GFR (Non-Af Amer) > 60 Glucose 115 H Calcium 8.8 Impressions: Chest X-Ray 11/08/18 18:24 IMPRESSION: Cardiomegaly. Chronic bilateral interstitial changes consistent with interstitial fibrosis. Assessment & Plan - Diagnosis (1) Sickle cell crisis Is this a current diagnosis for this admission?: Yes Plan: Improving, con't supportive measures for next 24 hours. (2) Sickle cell anemia Qualifiers: Sickle-cell associated disorders: with unspecified crisis Qualified Code(s): D57.00 - Hb-SS disease with crisis, unspecified; D57.0 - Hb-SS disease with crisis Is this a current diagnosis for this admission?: Yes Plan: Hb stable, hold on transfusion, cont supprotive measures needs more time (3) Anemia Qualifiers: Anemia type: acquired or hereditary hemolytic anemia Hemolytic anemia type: other hemoglobinopathy Qualified Code(s): D58.2 - Other hemoglobinopathies Is this a current diagnosis for this admission?: Yes Plan: Hb stable, transfuse if hb <6
--- NOTE | 2018-11-14 08:34 | PDOC PROGRESS REPORT ---
Subjective Progress Note for:: 11/14/18 Subjective:: Continued pain 11/12/2018-pain continues. 11/13/2018-no complaints this a.m. 11/14/2018-pain continues. Reason For Visit: SSC PAIN Physical Exam Vital Signs: Temp Pulse Resp BP Pulse Ox 98.4 F 81 16 122/73 100 11/14/18 00:00 11/14/18 07:00 11/14/18 00:00 11/14/18 00:00 11/14/18 00:00 Intake & Output 11/13/18 11/14/18 11/15/18 06:59 06:59 06:59 Intake Total 3640 3473 Output Total 3850 2300 Balance -210 1173 Weight 91.2 kg 92.2 kg General appearance: PRESENT: no acute distress, well-developed, well-nourished Head exam: PRESENT: atraumatic, normocephalic Eye exam: PRESENT: conjunctiva pink, EOMI, PERRLA. ABSENT: scleral icterus Ear exam: PRESENT: normal external ear exam Mouth exam: PRESENT: moist, tongue midline Neck exam: ABSENT: carotid bruit, JVD, lymphadenopathy, thyromegaly Respiratory exam: PRESENT: clear to auscultation anastasiya. ABSENT: rales, rhonchi, wheezes Cardiovascular exam: PRESENT: RRR. ABSENT: diastolic murmur, rubs, systolic murmur Pulses: PRESENT: normal dorsalis pedis pul Vascular exam: PRESENT: normal capillary refill GI/Abdominal exam: PRESENT: normal bowel sounds, soft. ABSENT: distended, guarding, mass, organolmegaly, rebound, tenderness Rectal exam: PRESENT: deferred Extremities exam: PRESENT: full ROM. ABSENT: calf tenderness, clubbing, pedal edema Neurological exam: PRESENT: alert, awake, oriented to person, oriented to place, oriented to time, oriented to situation, CN II-XII grossly intact. ABSENT: motor sensory deficit Psychiatric exam: PRESENT: appropriate affect, normal mood. ABSENT: homicidal ideation, suicidal ideation Skin exam: PRESENT: dry, intact, warm. ABSENT: cyanosis, rash Results Laboratory Results: 11/13/18 09:35 11/13/18 09:35 11/13/18 11/13/18 11/14/18 09:35 09:35 06:52 WBC 7.3 RBC 2.64 L Hgb 9.1 L Hct 26.6 L MCV 101 H MCH 34.6 H MCHC 34.3 RDW 21.9 H Plt Count 457 H Retic Count (auto) 7.71 H Absolute Retic 0.199 H Sodium 139.6 Potassium 4.2 Chloride 103 Carbon Dioxide 29 Anion Gap 8 BUN 4 L Creatinine 0.59 Est GFR ( Amer) > 60 Est GFR (Non-Af Amer) > 60 Glucose 115 H Calcium 8.8 Impressions: Chest X-Ray 11/08/18 18:24 IMPRESSION: Cardiomegaly. Chronic bilateral interstitial changes consistent with interstitial fibrosis. Assessment and Plan - Diagnosis (1) Sickle cell crisis Is this a current diagnosis for this admission?: Yes Plan: Patient is admitted to the medical floor and continuous cardiac telemetry. He is provided aggressive IV fluid hydration. Supplemental oxygen 2 L/min via nasal cannula. Continue home dose hydroxyurea 1000 mg twice daily Continue daily folic acid. Benadryl 50 mg p.o. every 6 as needed Baclofen 10 mg every 6 as needed Pain regimen includes: Lidoderm patches, ibuprofen 600 mg every 8 scheduled, oxycodone 10 mg every 4 PRN, Tylenol 650 mg every 4 PRN, Dilaudid 2 mg p.o. reji ry 4 scheduled, Dilaudid 2 mg IV every 2 as needed. Heating pad as needed. 11/11/2018-patient saw by Dr. Garcia on hematology this a.m. Dilaudid increased to 3.5 mill grams every 2 hours. We will continue oxygenation as well as hydration with normal saline. We will continue to follow may change plan of care as appropriate. 11/12/2018-patient evaluated by hematology this a.m. Reticular site count remains high at 5. Continue current therapy and supportive measures. Decrease IV fluids to 100 mL/h 11/13/2018-continue Dilaudid and IV hydration. Repeat CBC and reticular site count in a.m. 11/14/2018-continues to improve. Continue supportive measures at this time (2) Sickle cell anemia Qualifiers: Sickle-cell associated disorders: with unspecified crisis Qualified Code(s): D57.00 - Hb-SS disease with crisis, unspecified; D57.0 - Hb-SS disease with crisis Is this a current diagnosis for this admission?: Yes Plan: Management of crisis as above. Daily CBC. Consider Hematology consultation. 11/11/2018-continue daily CBCs. Oncology/hematology is following. Will await further recommendations. 11/12/2018-hemoglobin stable. Hold transfusion. 11/13/2018-repeat CBC in a.m. holding transfusion at this time. 11/14/2018-improved at this time continue to follow with CBCs. - Time Time Spent with patient: Less than 15 minutes - Inpatient Certification Based on my medical assessment, after consideration of the patient's comorbidities, presenting symptoms, or acuity I expect that the services needed warrant INPATIENT care.: Yes I certify that my determination is in accordance with my understanding of Medicare's requirements for reasonable and necessary INPATIENT services [42 CFR 412.3e].: Yes Medical Necessity: Other - IV fluids, IV pain control.
[2018-11-14] MEDS: DOCUSATE SODIUM 100 MG CAPSULE PO SCH ×2 (10:15→18:44)
[2018-11-14] MEDS: FOLIC ACID 1 MG TABLET PO SCH (10:15)
[2018-11-14] MEDS: HYDROXYUREA 500 MG CAPSULE PO SCH ×2 (10:15→18:44)
[2018-11-14] MEDS: FLUTICASONE NASAL SPRAY 50 MCG/SPRY 120 SPRAY/16 GM NASL SCH ×2 (10:21→21:31)
[2018-11-14] MEDS: LIDOCAINE 5% (700 MG) TRANSDERMAL ADH..PATCH TP SCH (10:22)
[2018-11-14] MEDS: PHARMACY COMMUNICATION ORDER MC SCH (21:31)
[2018-11-15] MEDS: HYDROMORPHONE HCL INJ/PF 2 MG/ML AMPULE IV PRN ×11 (01:59→22:16)
[2018-11-15] MEDS: DIPHENHYDRAMINE HCL 50 MG/ML VIAL IV PRN ×6 (03:59→20:18)
[2018-11-15] MEDS: OXYCODONE HCL IR 5 MG TABLET PO PRN (05:00)
[2018-11-15] MEDS: METHADONE HCL 10 MG TABLET PO SCH ×2 (05:00→17:10)
[2018-11-15] MEDS: NORMAL SALINE 1000 ML 1,000 ML IV PRN ×2 (05:14→16:18)
[2018-11-15 06:23] LABS: ABSOLUTE RETICS # 0.187 10^6/uL (0.028-0.122); HEMATOCRIT 25.7 % (37.9-51.0); HEMOGLOBIN 8.6 g/dL (13.5-17.0); MEAN CORPUSCULAR HEMOGLOBIN 33.9 pg (27.0-33.4); MEAN CORPUSCULAR HGB CONC 33.5 g/dL (32.0-36.0); MEAN CORPUSCULAR VOLUME 101 fl (80-97); PLATELET COUNT 493 10^3/uL (150-450); RED BLOOD COUNT 2.54 10^6/uL (4.35-5.55); RED CELL DISTRIBUTION WIDTH 20.5 % (11.5-14.0); RETICULOCYTE COUNT (AUTO) 7.35 % (0.66-2.85); WHITE BLOOD COUNT 5.5 10^3/uL (4.0-10.5)
[2018-11-15 06:29] LABS: ANION GAP 5 (5-19); BLOOD UREA NITROGEN 6 mg/dL (7-20); CALCIUM 8.7 mg/dL (8.4-10.2); CARBON DIOXIDE 32 mmol/L (22-30); CHLORIDE 104 mmol/L (98-107); GLUCOSE 104 mg/dL (75-110); POTASSIUM 4.7 mmol/L (3.6-5.0)
--- NOTE | 2018-11-15 09:00 | PDOC PROGRESS REPORT ---
Subjective Progress Note for:: 11/15/18 Subjective:: Continued pain 11/12/2018-pain continues. 11/13/2018-no complaints this a.m. 11/14/2018-pain continues. 11/15/2018-pain continues Reason For Visit: SSC PAIN Physical Exam Vital Signs: Temp Pulse Resp BP Pulse Ox 98.3 F 79 14 115/66 94 11/15/18 07:52 11/15/18 07:52 11/15/18 07:52 11/15/18 07:52 11/15/18 07:52 Intake & Output 11/14/18 11/15/18 11/16/18 06:59 06:59 06:59 Intake Total 3473 2886 Output Total 2300 2550 Balance 1173 336 Weight 92.2 kg 92.2 kg General appearance: PRESENT: no acute distress, well-developed, well-nourished Head exam: PRESENT: atraumatic, normocephalic Eye exam: PRESENT: conjunctiva pink, EOMI, PERRLA. ABSENT: scleral icterus Ear exam: PRESENT: normal external ear exam Mouth exam: PRESENT: moist, tongue midline Neck exam: ABSENT: carotid bruit, JVD, lymphadenopathy, thyromegaly Respiratory exam: PRESENT: clear to auscultation anastasiya. ABSENT: rales, rhonchi, wheezes Cardiovascular exam: PRESENT: RRR. ABSENT: diastolic murmur, rubs, systolic murmur Pulses: PRESENT: normal dorsalis pedis pul Vascular exam: PRESENT: normal capillary refill GI/Abdominal exam: PRESENT: normal bowel sounds, soft. ABSENT: distended, g uarding, mass, organolmegaly, rebound, tenderness Rectal exam: PRESENT: deferred Extremities exam: PRESENT: full ROM. ABSENT: calf tenderness, clubbing, pedal edema Neurological exam: PRESENT: alert, awake, oriented to person, oriented to place, oriented to time, oriented to situation, CN II-XII grossly intact. ABSENT: mo tor sensory deficit Psychiatric exam: PRESENT: appropriate affect, normal mood. ABSENT: homicidal ideation, suicidal ideation Skin exam: PRESENT: dry, intact, warm. ABSENT: cyanosis, rash Results Laboratory Results: 11/15/18 05:00 11/15/18 05:00 11/15/18 11/15/18 05:00 05:00 WBC 5.5 RBC 2.54 L Hgb 8.6 L Hct 25.7 L MCV 101 H MCH 33.9 H MCHC 33.5 RDW 20.5 H Plt Count 493 H Retic Count (auto) 7.35 H Absolute Retic 0.187 H Sodium 140.5 Potassium 4.7 Chloride 104 Carbon Dioxide 32 H Anion Gap 5 BUN 6 L Creatinine 0.61 Est GFR ( Amer) > 60 Est GFR (Non-Af Amer) > 60 Glucose 104 Calcium 8.7 Impressions: Chest X-Ray 11/08/18 18:24 IMPRESSION: Cardiomegaly. Chronic bilateral interstitial changes consistent with interstitial fibrosis. Assessment and Plan - Diagnosis (1) Sickle cell crisis Is this a current diagnosis for this admission?: Yes Plan: Patient is admitted to the medical floor and continuous cardiac telemetry. He is provided aggressive IV fluid hydration. Supplemental oxygen 2 L/min via nasal cannula. Continue home dose hydroxyurea 1000 mg twice daily Continue daily folic acid. Benadryl 50 mg p.o. every 6 as needed Baclofen 10 mg every 6 as needed Pain regimen includes: Lidoderm patches, ibuprofen 600 mg every 8 scheduled, oxycodone 10 mg every 4 PRN, Tylenol 650 mg every 4 PRN, Dilaudid 2 mg p.o. every 4 scheduled, Dilaudid 2 mg IV every 2 as needed. Heating pad as needed. 11/11/2018-patient saw by Dr. Garcia on hematology this a.m. Dilaudid increased to 3.5 mill grams every 2 hours. We will continue oxygenation as well as hydration with normal saline. We will continue to follow may change plan of care as appropriate. 11/12/2018-patient evaluated by hematology this a.m. Reticular site count remains high at 5. Continue current therapy and supportive measures. Decrease IV fluids to 100 mL/h 11/13/2018-continue Dilaudid and IV hydration. Repeat CBC and reticular site count in a.m. 11/14/2018-continues to improve. Continue supportive measures at this time 3702-continues to improve continue supportive measures await recommendations per hematology (2) Sickle cell anemia Qualifiers: Sickle-cell associated disorders: with unspecified crisis Qualified Code(s): D57.00 - Hb-SS disease with crisis, unspecified; D57.0 - Hb-SS disease with crisis Is this a current diagnosis for this admission?: Yes Plan: Management of crisis as above. Daily CBC. Consider Hematology consultation. 11/11/2018-continue daily CBCs. Oncology/hematology is following. Will await further recommendations. 11/12/2018-hemoglobin stable. Hold transfusion. 11/13/2018-repeat CBC in a.m. holding transfusion at this time. 11/14/2018-improved at this time continue to follow with CBCs. 11/15/2018-stable - Time Time Spent with patient: Less than 15 minutes - Inpatient Certification Based on my medical assessment, after consideration of the patient's comorbidities, presenting symptoms, or acuity I expect that the services needed warrant INPATIENT care.: Yes I certify that my determination is in accordance with my understanding of Medicare's requirements for reasonable and necessary INPATIENT services [42 CFR 412.3e].: Yes Medical Necessity: Other - IV fluids and IV pain control
[2018-11-15] MEDS: HYDROXYUREA 500 MG CAPSULE PO SCH ×2 (09:07→17:09)
[2018-11-15] MEDS: LIDOCAINE 5% (700 MG) TRANSDERMAL ADH..PATCH TP SCH (09:07)
[2018-11-15] MEDS: DOCUSATE SODIUM 100 MG CAPSULE PO SCH ×2 (09:07→17:10)
[2018-11-15] MEDS: FLUTICASONE NASAL SPRAY 50 MCG/SPRY 120 SPRAY/16 GM NASL SCH ×2 (09:07→21:04)
[2018-11-15] MEDS: FOLIC ACID 1 MG TABLET PO SCH (09:07)
--- NOTE | 2018-11-15 11:57 | PDOC PROGRESS REPORT ---
Subjective Progress Note for:: 11/15/18 Subjective:: Still w/ considerable pain, mostly R hip, probably related to known AVN, con't current regimen Reason For Visit: SSC PAIN Physical Exam Vital Signs: Temp Pulse Resp BP Pulse Ox 98.3 F 79 14 115/66 94 11/15/18 07:52 11/15/18 07:52 11/15/18 07:52 11/15/18 07:52 11/15/18 07:52 Intake & Output 11/14/18 11/15/18 11/16/18 06:59 06:59 06:59 Intake Total 3473 2886 Output Total 2300 2550 Balance 1173 336 Weight 92.2 kg 92.2 kg General appearance: PRESENT: no acute distress, well-developed, well-nourished Head exam: PRESENT: atraumatic, normocephalic Eye exam: PRESENT: conjunctiva pink, EOMI, PERRLA. ABSENT: scleral icterus Ear exam: PRESENT: normal external ear exam Mouth exam: PRESENT: moist, tongue midline Neck exam: ABSENT: carotid bruit, JVD, lymphadenopathy, thyromegaly Respiratory exam: PRESENT: clear to auscultation anastasiya. ABSENT: rales, rhonchi, wheezes Cardiovascular exam: PRESENT: RRR. ABSENT: diastolic murmur, rubs, systolic murmur Pulses: PRESENT: normal dorsalis pedis pul Vascular exam: PRESENT: normal capillary refill GI/Abdominal exam: PRESENT: normal bowel sounds, soft. ABSENT: distended, guarding, mass, organolmegaly, rebound, tenderness Rectal exam: PRESENT: deferred Extremities exam: PRESENT: full ROM. ABSENT: calf tenderness, clubbing, pedal edema Neurological exam: PRESENT: alert, awake, oriented to person, oriented to place, oriented to time, oriented to situation, CN II-XII grossly intact. ABSENT: motor sensory deficit Psychiatric exam: PRESENT: appropriate affect, normal mood. ABSENT: homicidal ideation, suicidal ideation Skin exam: PRESENT: dry, intact, warm. ABSENT: cyanosis, rash Results Laboratory Results: 11/15/18 05:00 11/15/18 05:00 11/15/18 11/15/18 05:00 05:00 WBC 5.5 RBC 2.54 L Hgb 8.6 L Hct 25.7 L MCV 101 H MCH 33.9 H MCHC 33.5 RDW 20.5 H Plt Count 493 H Retic Count (auto) 7.35 H Absolute Retic 0.187 H Sodium 140.5 Potassium 4.7 Chloride 104 Carbon Dioxide 32 H Anion Gap 5 BUN 6 L Creatinine 0.61 Est GFR ( Amer) > 60 Est GFR (Non-Af Amer) > 60 Glucose 104 Calcium 8.7 Impressions: Chest X-Ray 11/08/18 18:24 IMPRESSION: Cardiomegaly. Chronic bilateral interstitial changes consistent with interstitial fibrosis. Assessment & Plan - Diagnosis (1) Sickle cell crisis Is this a current diagnosis for this admission?: Yes Plan: Cont current regimen, pt improving slowly (2) Sickle cell anemia Qualifiers: Sickle-cell associated disorders: with unspecified crisis Qualified Code(s): D57.00 - Hb-SS disease with crisis, unspecified; D57.0 - Hb-SS disease with crisis Is this a current diagnosis for this admission?: Yes Plan: Hold on transfusion, con't current supportive measures for another 24 hours (3) Anemia Qualifiers: Anemia type: acquired or hereditary hemolytic anemia Hemolytic anemia type: other hemoglobinopathy Qualified Code(s): D58.2 - Other hemoglobinopathies Is this a current diagnosis for this admission?: Yes Plan: Hb stable - Time Time Spent with patient: 15-24 minutes - Inpatient Certification Based on my medical assessment, after consideration of the patient's comorbidities, presenting symptoms, or acuity I expect that the services needed warrant INPATIENT care.: Yes I certify that my determination is in accordance with my understanding of Medicare's requirements for reasonable and necessary INPATIENT services [42 CFR 412.3e].: Yes Medical Necessity: Need for Pain Control
[2018-11-15] MEDS: PHARMACY COMMUNICATION ORDER MC SCH (21:04)
[2018-11-16] MEDS: HYDROMORPHONE HCL INJ/PF 2 MG/ML AMPULE IV PRN ×10 (00:27→19:33)
[2018-11-16] MEDS: DIPHENHYDRAMINE HCL 50 MG/ML VIAL IV PRN ×6 (00:27→22:04)
[2018-11-16] MEDS: METHADONE HCL 10 MG TABLET PO SCH ×2 (05:25→17:14)
[2018-11-16] MEDS: DOCUSATE SODIUM 100 MG CAPSULE PO SCH ×2 (10:46→17:14)
[2018-11-16] MEDS: HYDROXYUREA 500 MG CAPSULE PO SCH ×2 (10:46→17:14)
[2018-11-16] MEDS: FOLIC ACID 1 MG TABLET PO SCH (10:46)
[2018-11-16] MEDS: LIDOCAINE 5% (700 MG) TRANSDERMAL ADH..PATCH TP SCH (10:50)
[2018-11-16] MEDS: FLUTICASONE NASAL SPRAY 50 MCG/SPRY 120 SPRAY/16 GM NASL SCH ×2 (10:50→22:04)
[2018-11-16] MEDS ORDERED: OXYCODONE HCL IR 5 MG TABLET PO PRN (11:00)
--- NOTE | 2018-11-16 11:15 | PDOC PROGRESS REPORT ---
Subjective Progress Note for:: 11/16/18 Subjective:: Continued pain 11/12/2018-pain continues. 11/13/2018-no complaints this a.m. 11/14/2018-pain continues. 11/15/2018-pain continues 11/16/2018-pain continues Reason For Visit: SSC PAIN Physical Exam Vital Signs: Temp Pulse Resp BP Pulse Ox 98.4 F 85 17 145/92 H 100 11/16/18 00:32 11/16/18 07:00 11/16/18 00:32 11/16/18 00:32 11/16/18 00:32 Intake & Output 11/15/18 11/16/18 11/17/18 06:59 06:59 06:59 Intake Total 2886 1240 Output Total 2550 1801 Balance 336 -561 Weight 92.2 kg 92.2 kg General appearance: PRESENT: no acute distress, well-developed, well-nourished Head exam: PRESENT: atraumatic, normocephalic Eye exam: PRESENT: conjunctiva pink, EOMI, PERRLA. ABSENT: scleral icterus Ear exam: PRESENT: normal external ear exam Mouth exam: PRESENT: moist, tongue midline Neck exam: ABSENT: carotid bruit, JVD, lymphadenopathy, thyromegaly Respiratory exam: PRESENT: clear to auscultation anastasiya. ABSENT: rales, rhonchi, wheezes Cardiovascular exam: PRESENT: RRR. ABSENT: diastolic murmur, rubs, systolic murmur Pulses: PRESENT: normal dorsalis pedis pul Vascular exam: PRESENT: normal capillary refill GI/Abdominal exam: PRESENT: normal bowel sounds, soft. ABSENT: distended, guarding, mass, organolmegaly, rebound, tenderness Rectal exam: PRESENT: deferred Extremities exam: PRESENT: full ROM. ABSENT: calf tenderness, clubbing, pedal edema Neurological exam: PRESENT: alert, awake, oriented to person, oriented to place, oriented to time, oriented to situation, CN II-XII grossly intact. ABSENT: motor sensory deficit Psychiatric exam: PRESENT: appropriate affect, normal mood. ABSENT: homicidal ideation, suicidal ideation Skin exam: PRESENT: dry, intact, warm. ABSENT: cyanosis, rash Results Laboratory Results: 11/15/18 05:00 11/15/18 05:00 Impressions: Chest X-Ray 11/08/18 18:24 IMPRESSION: Cardiomegaly. Chronic bilateral interstitial changes consistent with interstitial fibrosis. Assessment and Plan - Diagnosis (1) Sickle cell crisis Is this a current diagnosis for this admission?: Yes Plan: Patient is admitted to the medical floor and continuous cardiac telemetry. He is provided aggressive IV fluid hydration. Supplemental oxygen 2 L/min via nasal cannula. Continue home dose hydroxyurea 1000 mg twice daily Continue daily folic acid. Benadryl 50 mg p.o. every 6 as needed Baclofen 10 mg every 6 as needed Pain regimen includes: Lidoderm patches, ibuprofen 600 mg every 8 scheduled, oxycodone 10 mg every 4 PRN, Tylenol 650 mg every 4 PRN, Dilaudid 2 mg p.o. every 4 scheduled, Dilaudid 2 mg IV every 2 as needed. Heating pad as needed. 11/11/2018-patient saw by Dr. Garcia on hematology this a.m. Dilaudid increased to 3.5 mill grams every 2 hours. We will continue oxygenation as well as hydration with normal saline. We will continue to follow may change plan of care as appropriate. 11/12/2018-patient evaluated by hematology this a.m. Reticular site count remains high at 5. Continue current therapy and supportive measures. Decrease IV fluids to 100 mL/h 11/13/2018-continue Dilaudid and IV hydration. Repeat CBC and reticular site count in a.m. 11/14/2018-continues to improve. Continue supportive measures at this time [id number] to improve continue supportive measures await recommendations per hematology 11/16/2018-complains of right-sided chest pain is morning he will obtain a chest x-ray per hematology. (2) Sickle cell anemia Qualifiers: Sickle-cell associated disorders: with unspecified crisis Qualified Code(s): D57.00 - Hb-SS disease with crisis, unspecified; D57.0 - Hb-SS disease with crisis Is this a current diagnosis for this admission?: Yes Plan: Management of crisis as above. Daily CBC. Consider Hematology consultation. 11/11/2018-continue daily CBCs. Oncology/hematology is following. Will await further recommendations. 11/12/2018-hemoglobin stable. Hold transfusion. 11/13/2018-repeat CBC in a.m. holding transfusion at this time. 11/14/2018-improved at this time continue to follow with CBCs. 11/15/2018-stable 11/16/2018-stable - Time Time Spent with patient: Less than 15 minutes - Inpatient Certification Based on my medical assessment, after consideration of the patient's comorbidities, presenting symptoms, or acuity I expect that the services needed warrant INPATIENT care.: Yes I certify that my determination is in accordance with my understanding of Medicare's requirements for reasonable and necessary INPATIENT services [42 CFR 412.3e].: Yes Medical Necessity: Other - Fluids, IV pain control
--- NOTE | 2018-11-16 11:34 | PDOC PROGRESS REPORT ---
Subjective Progress Note for:: 11/16/18 Subjective:: Overall pain seems to be better but still having some right-sided chest pain with deep inspiration, ordered chest x-ray this morning Reason For Visit: SSC PAIN Physical Exam Vital Signs: Temp Pulse Resp BP Pulse Ox 98.4 F 85 17 145/92 H 100 11/16/18 00:32 11/16/18 07:00 11/16/18 00:32 11/16/18 00:32 11/16/18 00:32 Intake & Output 11/15/18 11/16/18 11/17/18 06:59 06:59 06:59 Intake Total 2886 1240 Output Total 2550 1801 Balance 336 -561 Weight 92.2 kg 92.2 kg General appearance: PRESENT: no acute distress, well-developed, well-nourished Head exam: PRESENT: atraumatic, normocephalic Eye exam: PRESENT: conjunctiva pink, EOMI, PERRLA. ABSENT: scleral icterus Ear exam: PRESENT: normal external ear exam Mouth exam: PRESENT: moist, tongue midline Neck exam: ABSENT: carotid bruit, JVD, lymphadenopathy, thyromegaly Respiratory exam: PRESENT: clear to auscultation anastasiya. ABSENT: rales, rhonchi, wheezes Cardiovascular exam: PRESENT: RRR. ABSENT: diastolic murmur, rubs, systolic murmur Pulses: PRESENT: normal dorsalis pedis pul Vascular exam: PRESENT: normal capillary refill GI/Abdominal exam: PRESENT: normal bowel sounds, soft. ABSENT: distended, guarding, mass, organolmegaly, rebound, tenderness Rectal exam: PRESENT: deferred Extremities exam: PRESENT: full ROM. ABSENT: calf tenderness, clubbing, pedal edema Neurological exam: PRESENT: alert, awake, oriented to person, oriented to place, oriented to time, oriented to situation, CN II-XII grossly intact. ABSENT: motor sensory deficit Psychiatric exam: PRESENT: appropriate affect, normal mood. ABSENT: homicidal ideation, suicidal ideation Skin exam: PRESENT: dry, intact, warm. ABSENT: cyanosis, rash Results Laboratory Results: 11/15/18 05:00 11/15/18 05:00 Impressions: Chest X-Ray 11/08/18 18:24 IMPRESSION: Cardiomegaly. Chronic bilateral interstitial changes consistent with interstitial fibrosis. Assessment & Plan - Diagnosis (1) Sickle cell crisis Is this a current diagnosis for this admission?: Yes Plan: Improving, will need another 24 hours of IV pain relief (2) Sickle cell anemia Qualifiers: Sickle-cell associated disorders: with unspecified crisis Qualified Code(s): D57.00 - Hb-SS disease with crisis, unspecified; D57.0 - Hb-SS disease with crisis Is this a current diagnosis for this admission?: Yes Plan: Hemoglobin stable, continue to monitor, continue supportive medications (3) Anemia Qualifiers: Anemia type: acquired or hereditary hemolytic anemia Hemolytic anemia type: other hemoglobinopathy Qualified Code(s): D58.2 - Other hemoglobinopathies Is this a current diagnosis for this admission?: Yes Plan: Patient doing okay from the standpoint, hemoglobin stable
--- NOTE | 2018-11-16 18:44 | RADIOLOGY REPORT (SQ) ---
EXAM DESCRIPTION: CHEST 2 VIEWS COMPLETED DATE/TIME: 11/16/2018 6:17 pm REASON FOR STUDY: SOB COMPARISON: 11/08/2018 TECHNIQUE: Frontal and lateral radiographic views of the chest acquired. NUMBER OF VIEWS: Two view. LIMITATIONS: None. FINDINGS: LUNGS AND PLEURA: Diminished bibasilar aeration, worsening subsegmental atelectasis or pat tonio infiltrates present. Central vascular congestion has also developed. No significant pleural flu id, however. MEDIASTINUM AND HILAR STRUCTURES: Stable contours. HEART AND VASCULAR STRUCTURES: Stable heart size. BONES: No acute findings. HARDWARE: Left port. OTHER: No other significant finding. IMPRESSION: 1. Worsening basilar aeration may reflect pneumonia. 2. Vascular congestion has developed. TECHNICAL DOCUMENTATION: JOB ID: [id number] [employer]- All Rights Reserved Reading location - IP/workstation name: [email or web address]
[2018-11-16] MEDS: PHARMACY COMMUNICATION ORDER MC SCH (22:05)
[2018-11-17] MEDS: HYDROMORPHONE HCL INJ/PF 2 MG/ML AMPULE IV PRN ×9 (00:08→17:33)
[2018-11-17] MEDS: DIPHENHYDRAMINE HCL 50 MG/ML VIAL IV PRN ×4 (02:08→15:42)
[2018-11-17] MEDS: NORMAL SALINE 1000 ML 1,000 ML IV PRN (02:11)
[2018-11-17] MEDS: METHADONE HCL 10 MG TABLET PO SCH ×2 (06:23→17:26)
--- NOTE | 2018-11-17 08:25 | PDOC PROGRESS REPORT ---
Subjective Progress Note for:: 11/17/18 Subjective:: Improved but still w/ R sided CP, CXR shows possible pneumonia inflitrate vs vascular congestion, discussed w/ pt, he feels ready to d/c home, will need course oral atbx, discussed w/ hospitalist team, I also gave pt rx for methadone. He will need d/c in pm when his ride gets here Reason For Visit: SSC PAIN Physical Exam Vital Signs: Temp Pulse Resp BP Pulse Ox 97.7 F 72 16 128/86 H 100 11/16/18 23:20 11/17/18 02:00 11/16/18 23:20 11/16/18 23:20 11/16/18 23:20 Intake & Output 11/16/18 11/17/18 11/18/18 06:59 06:59 06:59 Intake Total 2240 Output Total 1801 Balance 439 Weight 92.2 kg 93.5 kg General appearance: PRESENT: no acute distress, well-developed, well-nourished Head exam: PRESENT: atraumatic, normocephalic Eye exam: PRESENT: conjunctiva pink, EOMI, PERRLA. ABSENT: scleral icterus Ear exam: PRESENT: normal external ear exam Mouth exam: PRESENT: moist, tongue midline Neck exam: ABSENT: carotid bruit, JVD, lymphadenopathy, thyromegaly Respiratory exam: PRESENT: clear to auscultation anastasiya. ABSENT: rales, rhonchi, wheezes Cardiovascular exam: PRESENT: RRR. ABSENT: diastolic murmur, rubs, systolic murmur Pulses: PRESENT: normal dorsalis pedis pul Vascular exam: PRESENT: normal capillary refill GI/Abdominal exam: PRESENT: normal bowel sounds, soft. ABSENT: distended, guarding, mass, organolmegaly, rebound, tenderness Rectal exam: PRESENT: deferred Extremities exam: PRESENT: full ROM. ABSENT: calf tenderness, clubbing, pedal edema Neurological exam: PRESENT: alert, awake, oriented to person, oriented to place, oriented to time, oriented to situation, CN II-XII grossly intact. ABSENT: motor sensory deficit Psychiatric exam: PRESENT: appropriate affect, normal mood. ABSENT: homicidal ideation, suicidal ideation Skin exam: PRESENT: dry, intact, warm. ABSENT: cyanosis, rash Results Laboratory Results: 11/15/18 05:00 11/15/18 05:00 Impressions: Chest X-Ray 11/16/18 00:00 IMPRESSION: 1. Worsening basilar aeration may reflect pneumonia. 2. Vascular congestion has developed. 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
[2018-11-17] MEDS: HYDROXYUREA 500 MG CAPSULE PO SCH ×2 (09:17→17:26)
[2018-11-17] MEDS: FOLIC ACID 1 MG TABLET PO SCH (09:17)
[2018-11-17] MEDS: DOCUSATE SODIUM 100 MG CAPSULE PO SCH ×2 (09:17→17:26)
[2018-11-17] MEDS: FLUTICASONE NASAL SPRAY 50 MCG/SPRY 120 SPRAY/16 GM NASL SCH (09:18)
[2018-11-17] MEDS ORDERED: FUROSEMIDE INJ/PF 40 MG/4 ML SDV IV ONE (09:23)
--- NOTE | 2018-11-17 09:29 | PDOC DISCHARGE SUMMARY ---
General - Admit/Disc Date/PCP Admission Date/Primary Care Provider: 11/08/18 23:44 BETH STAPLETON MD Discharge Date: 11/17/18 - Discharge Diagnosis (1) Sickle cell crisis Is this a current diagnosis for this admission?: Yes (2) Sickle cell anemia Is this a current diagnosis for this admission?: Yes - Additional Information Resuscitation Status: Full Code Discharge Diet: As Tolerated Discharge Activity: Activity As Tolerated Prescriptions: Azithromycin 500 mg PO DAILY 3 Days #3 tablet Home Medications: Hydroxyurea [Hydrea 500 mg Capsule] 1,500 mg PO SUTUTH 11/09/18 Hydroxyurea [Hydrea 500 mg Capsule] 3,000 mg PO MOWEFR 11/09/18 Ibuprofen [Motrin 600 mg Tablet] 600 mg PO Q6HP PRN 11/09/18 Methadone HCl [Dolophine HCl] 5 mg PO Q6HP PRN 11/09/18 Oxycodone HCl [Oxycodone HCl 10 MG Tablet] 10 mg PO Q8 11/09/18 Azithromycin 500 mg PO DAILY 3 Days #3 tablet 11/17/18 History of Present Illness History of Present Illness: MARISA GARBER is a 37 year old male with a long-standing history of sickle cell anemia came in for sickle cell crisis. Hospital Course Hospital Course: Patient was admitted to medical surgical floor hydrated placed on oxygen and pain control. Over the course of patient's hospitalization he improved sufficiently return home on 11/17/2018. Patient was given a prescription for methadone by Dr. Stapleton and a prescription for azithromycin 500 g p.o. daily x3 days for possible pneumonia which was read by chest x-ray yesterday. Patient also saw some vascular congestion most likely secondary all the IV fluids he received in the hospital given 40 milligrams IV Lasix x1 for at least. Patient is in agreement with this plan of care. Physical Exam Vital Signs: Temp Pulse Resp BP Pulse Ox 97.7 F 72 16 128/86 H 100 11/16/18 23:20 11/17/18 02:00 11/16/18 23:20 11/16/18 23:20 11/16/18 23:20 Intake & Output 11/16/18 11/17/18 11/18/18 06:59 06:59 06:59 Intake Total 2240 Output Total 1801 Balance 439 Weight 92.2 kg 93.5 kg General appearance: PRESENT: no acute distress, well-developed, well-nourished Head exam: PRESENT: atraumatic, normocephalic Eye exam: PRESENT: conjunctiva pink, EOMI, PERRLA. ABSENT: scleral icterus Ear exam: PRESENT: normal external ear exam Mouth exam: PRESENT: moist, tongue midline Neck exam: ABSENT: carotid bruit, JVD, lymphadenopathy, thyromegaly Respiratory exam: PRESENT: clear to auscultation anastasiya. ABSENT: rales, rhonchi, wheezes Cardiovascular exam: PRESENT: RRR. ABSENT: diastolic murmur, rubs, systolic murmur Pulses: PRESENT: normal dorsalis pedis pul Vascular exam: PRESENT: normal capillary refill GI/Abdominal exam: PRESENT: normal bowel sounds, soft. ABSENT: distended, guarding, mass, organolmegaly, rebound, tenderness Rectal exam: PRESENT: deferred Extremities exam: PRESENT: full ROM. ABSENT: calf tenderness, clubbing, pedal edema Neurological exam: PRESENT: alert, awake, oriented to person, oriented to place, oriented to time, oriented to situation, CN II-XII grossly intact. ABSENT: motor sensory deficit Psychiatric exam: PRESENT: appropriate affect, normal mood. ABSENT: homicidal ideation, suicidal ideation Skin exam: PRESENT: dry, intact, warm. ABSENT: cyanosis, rash Results Laboratory Results: 11/15/18 05:00 11/15/18 05:00 Impressions: Chest X-Ray 11/16/18 00:00 IMPRESSION: 1. Worsening basilar aeration may reflect pneumonia. 2. Vascular congestion has developed. Qualifiers - * PATIENT BEING DISCHARGED WITH ANY OF THE FOLLOWING DIAGNOSIS: No Acute Heart Failure - Is this a Heart Failure Patient?: No Plan Time Spent: Greater than 30 Minutes
[2018-11-17] MEDS ORDERED: AZITHROMYCIN 250 MG TABLET PO SCH (10:00)
[2018-11-17] MEDS ORDERED: MAG HYDROX/AL HYDROX/SIMETH SUSP 30 ML UDCUP PO ONE (15:45)
[2018-11-17 17:14] VITALS: BP 128/72
== END 2018-11-17 18:06 | disposition home or self-care (01) | DRG 811 ==
LOC: ER 17:28 → OBSVTOIN 23:44 → EH 23:44 → 5 11-09 01:30 → 4S 11-09 13:13
PROVIDERS: ADMIT Internal Medicine; ATTEND Internal Medicine
DX: D57.00 Hb-SS disease with crisis, unspecified (principal); J18.9 Pneumonia, unspecified organism; L29.9 Pruritus, unspecified; M25.50 Pain in unspecified joint; F11.90 Opioid use, unspecified, uncomplicated; Z91.040 Latex allergy status; Z88.8 Allergy status to other drugs, medicaments and biological substances
CPT/HCPCS: 36415; 71046; 80048; 80053; 82607; 82728; 82746; 83540; 83550; 83615; 85025; 85027; 85045; 94640; 94799; 96360; 96361; 96365; 96367; 96374; 96375; 96376; 99285; J1170; J1200; J1642; J7030; J7620

== ENCOUNTER 2018-11-20 09:26 | Outpatient (CLI) | payer MEDICARE, MEDICAID ==
[~2018-11-20 09:26] MED LIST changes: +DIPHENHYDRAMINE HCL 25 MG in NORMAL SALINE 50 ML IV PRN; -HYDROMORPHONE HCL 2 MG TABLET PO ONE; +HYDROMORPHONE HCL INJ/PF 2 MG/ML AMPULE IV PRN; -HYDROXYUREA 500 MG CAPSULE PO ONE; +NORMAL SALINE 1000 ML 1,000 ML IV PRN
[2018-11-20 09:47] VITALS: BP 135/74
== END 2018-11-20 11:28 | disposition home or self-care (01) ==
LOC: II 09:26 → 5TH 09:30 → II 11:28
PROVIDERS: ATTEND Internal Medicine
PROC: 3E0437Z Introduction of Electrolytic and Water Balance Substance into Central Vein, Percutaneous Approach (ICD-10-PCS; principal; 2018-11-20)
PROC: 3E033GC Introduction of Other Therapeutic Substance into Peripheral Vein, Percutaneous Approach (ICD-10-PCS; 2018-11-20)
PROC: 3E043NZ Introduction of Analgesics, Hypnotics, Sedatives into Central Vein, Percutaneous Approach (ICD-10-PCS; 2018-11-20)
DX: D57.1 Sickle-cell disease without crisis (principal); E86.0 Dehydration; R52 Pain, unspecified
CPT/HCPCS: 96365; 96375; 96361; J1200; J1170; J1642; 96360; 96367; 96374

== ENCOUNTER 2018-11-21 09:00 | Outpatient (CLI) | payer MEDICARE, MEDICAID ==
[~2018-11-21 09:00] MED LIST changes: +DIPHENHYDRAMINE 50 MG in NS 50 ML IV PRN
[2018-11-21 09:29] VITALS: BP 119/57
== END 2018-11-21 11:24 | disposition home or self-care (01) ==
LOC: II 09:00 → 5TH 09:07 → II 11:24
PROVIDERS: ATTEND Internal Medicine
PROC: 3E0437Z Introduction of Electrolytic and Water Balance Substance into Central Vein, Percutaneous Approach (ICD-10-PCS; principal; 2018-11-21)
PROC: 3E043GC Introduction of Other Therapeutic Substance into Central Vein, Percutaneous Approach (ICD-10-PCS; 2018-11-21)
DX: D57.1 Sickle-cell disease without crisis (principal); E86.0 Dehydration; R52 Pain, unspecified
CPT/HCPCS: 96365; 96367; 96375; 96361; J1200; J1170; J1642; 96360; 96374

== ENCOUNTER 2018-11-22 13:23 | Emergency (ER) | payer MEDICARE, MEDICAID ==
--- NOTE | 2018-11-22 13:47 | ER Document Report ---
ED Medical Screen (RME) - General Chief Complaint: Pain All Over Stated Complaint: BODY PAIN Time Seen by Provider: 11/22/18 13:39 Primary Care Provider: BETH STAPLETON MD [Primary Care Provider] - Follow up as needed Mode of Arrival: Ambulatory Information source: Patient Notes: 37-year-old male presents today with complaints of full body pain. History of sickle cell. 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 Reports his whole body is hurting. Reports some shortness of breath. Did take his pain medications yesterday. None today. Denies fever vomiting diarrhea. I have greeted and performed a rapid initial assessment of this patient. A comprehensive ED assessment and evaluation of the patient, analysis of test results and completion of the medical decision making process will be conducted by additional ED providers. Dictation of this chart was performed using voice recognition software; therefore, there may be some unintended grammatical errors. TRAVEL OUTSIDE OF THE [place] IN LAST 30 DAYS: No - Related Data Allergies/Adverse Reactions: famotidine [From Pepcid] Allergy (Severe, Verified 11/22/18 13:24) Anaphylaxis ketorolac tromethamine [From Toradol] Allergy (Severe, Verified 11/22/18 13:24) levofloxacin [From Levaquin] Allergy (Severe, Verified 11/22/18 13:24) meperidine HCl [From Demerol] Allergy (Severe, Verified 11/22/18 13:24) morphine [Morphine] Allergy (Severe, Verified 11/22/18 13:24) tramadol HCl [From Ultram] Allergy (Severe, Verified 11/22/18 13:24) amoxicillin [Amoxicillin] Allergy (Verified 11/22/18 13:24) fentanyl [Fentanyl] Allergy (Verified 11/22/18 13:24) latex [Latex] Allergy (Verified 11/22/18 13:24) ondansetron HCl [From Zofran] Allergy (Verified 11/22/18 13:24) Pork/Porcine Containing Products Allergy (Verified 11/22/18 13:24) Past Medical History - Social History Chew tobacco use (# tins/day): No Frequency of alcohol use: None Drug Abuse: None - Past Medical History Cardiac Medical History: Denies: Hx Atrial Fibrillation, Hx Congestive Heart Failure, Hx Coronary Artery Disease Pulmonary Medical History: Reports: Hx Pneumonia Denies: Hx Asthma, Hx Bronchitis, Hx COPD, Hx Tuberculosis Neurological Medical History: Reports: Hx Seizures. Denies: Hx Migraine Endocrine Medical History: Denies: Hx Diabetes Mellitus Type 1, Hx Diabetes Mellitus Type 2 Renal/ Medical History: Denies: Hx Peritoneal Dialysis GI Medical History: Denies: Hx Cirrhosis, Hx Hepatitis Musculoskeltal Medical History: Denies Hx Arthritis, Denies Hx Gout, Reports Hx Musculoskeletal Deformity - right hip avascular necrosis Skin Medical History: Denies Hx Eczema, Denies Hx Psoriasis Psychiatric Medical History: Reports: Hx Depression Infectious Medical History: Denies: Hx Hepatitis Past Surgical History: Reports: Hx Appendectomy, Hx Vascular Surgery - L port placement, Other - Port placement - Immunizations Immunizations up to date: Yes Hx Diphtheria, Pertussis, Tetanus Vaccination: Yes Physical Exam - Vital signs Vitals: Temp Pulse Resp BP Pulse Ox 98.5 F 78 18 127/81 H 96 11/22/18 13:27 11/22/18 13:27 11/22/18 13:27 11/22/18 13:27 11/22/18 13:27 Course - Vital Signs Vital signs: Temp Pulse Resp BP Pulse Ox 98.5 F 78 18 127/81 H 96 11/22/18 13:27 11/22/18 13:27 11/22/18 13:27 11/22/18 13:27 11/22/18 13:27 Doctor's Discharge - Discharge Referrals: BETH STAPLETON MD [Primary Care Provider] - Follow up as needed
[2018-11-22 14:25] LABS: APPEARANCE,URINE CLEAR; BILIRUBIN,URINE NEGATIVE (NEGATIVE); COLOR,URINE YELLOW; GLUCOSE, URINE NEGATIVE (NEGATIVE); KETONES,URINE NEGATIVE (NEGATIVE); LEUKOCYTE ESTERASE,URINE NEGATIVE (NEGATIVE); NITRITE,URINE NEGATIVE (NEGATIVE); PROTEIN,URINE NEGATIVE (NEGATIVE); URINE SPECIFIC GRAVITY 1.012; UROBILINOGEN,URINE NEGATIVE mg/dL (<2.0)
--- NOTE | 2018-11-22 15:00 | RADIOLOGY REPORT (SQ) ---
EXAM DESCRIPTION: CHEST 2 VIEWS COMPLETED DATE/TIME: 11/22/2018 2:42 pm REASON FOR STUDY: sscrisis, sob COMPARISON: Not available due to PACs failure. EXAM PARAMETERS: NUMBER OF VIEWS: two views TECHNIQUE: Digital Frontal and Lateral radiographic views of the chest acquired. RADIATION DOSE: NA LIMITATIONS: none FINDINGS: LUNGS AND PLEURA: Mild interstitial prominence. Subtle hazy density in the left lung base . No pleural effusion or pneumothorax. MEDIASTINUM AND HILAR STRUCTURES: No masses or contour abnormalities. HEART AND VASCULAR STRUCTURES: Heart upper limits of normal size. No evidence for failure. BONES: No acute findings. HARDWARE: Vascular port. OTHER: No other significant finding. IMPRESSION: SUBTLE HAZY DENSITY IN THE LEFT LUNG BASE. ATELECTASIS VERSUS EARLY PNEUMONIA. TECHNICAL DOCUMENTATION: JOB ID: [id number] [employer]- All Rights Reserved Reading location - IP/workstation name: [email or web address]
[2018-11-22] MEDS ORDERED: NORMAL SALINE 1000 ML 1,000 ML IV ONE ×2 (16:23→19:04)
[2018-11-22] MEDS ORDERED: HYDROMORPHONE HCL INJ/PF 2 MG/ML AMPULE IV ONE ×5 (16:36→20:38)
[2018-11-22] MEDS ORDERED: DIPHENHYDRAMINE HCL 50 MG/ML VIAL IV ONE ×4 (16:37→20:38)
--- NOTE | 2018-11-22 16:38 | ER Document Report ---
ED General <TIFF MICHELLE - Last Filed: 11/22/18 21:41> - General Mode of Arrival: Ambulatory TRAVEL OUTSIDE OF THE [place] IN LAST 30 DAYS: No <UMA RACHEL - Last Filed: 11/23/18 08:28> - General Chief Complaint: Pain All Over Stated Complaint: BODY PAIN Time Seen by Provider: 11/22/18 13:39 Primary Care Provider: BETH MEDLELIN MD [Primary Care Provider] - Follow up as needed - HPI Notes: 37-year-old male with history of sickle cell anemia to the emergency department with complaints of all over joint pain that has been getting progressively worse for the past 3 days but got acutely worse this morning at 4 AM. He has been taking his normal medicine to come back his pain; he takes methadone, oxycodone, hydroxyurea, and folic acid. He denies any recent history of transfusion. He was admitted to the hospital in October for sickle cell crisis. At that time it was thought that maybe he had a pneumonia and he was placed on azithromycin. He does report that in the past 3 days he has noticed a runny nose and cough. He has not had a fever. He does not have chest pain. He does admit that he feels slightly short of breath. He does have a history of acute chest syndromeonce when he was 16 and once when he was 20. He states that his shortness of breath and cough do not feel like acute chest syndrome. He denies any fevers and is afebrile today. 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) - Related Data Allergies/Adverse Reactions: famotidine [From Pepcid] Allergy (Severe, Verified 11/22/18 13:24) Anaphylaxis ketorolac tromethamine [From Toradol] Allergy (Severe, Verified 11/22/18 13:24) levofloxacin [From Levaquin] Allergy (Severe, Verified 11/22/18 13:24) meperidine HCl [From Demerol] Allergy (Severe, Verified 11/22/18 13:24) morphine [Morphine] Allergy (Severe, Verified 11/22/18 13:24) tramadol HCl [From Ultram] Allergy (Severe, Verified 11/22/18 13:24) amoxicillin [Amoxicillin] Allergy (Verified 11/22/18 13:24) fentanyl [Fentanyl] Allergy (Verified 11/22/18 13:24) latex [Latex] Allergy (Verified 11/22/18 13:24) ondansetron HCl [From Zofran] Allergy (Verified 11/22/18 13:24) Pork/Porcine Containing Products Allergy (Verified 11/22/18 13:24) Past Medical History - General Information source: Patient - Social History Smoking Status: Never Smoker Chew tobacco use (# tins/day): No Frequency of alcohol use: None Drug Abuse: None Family History: Reviewed & Not Pertinent, Hypertension Patient has suicidal ideation: No Patient has homicidal ideation: No - Past Medical History Cardiac Medical History: Denies: Hx Atrial Fibrillation, Hx Congestive Heart Failure, Hx Coronary Artery Disease Pulmonary Medical History: Reports: Hx Pneumonia Denies: Hx Asthma, Hx Bronchitis, Hx COPD, Hx Tuberculosis Neurological Medical History: Reports: Hx Seizures. Denies: Hx Migraine Endocrine Medical History: Denies: Hx Diabetes Mellitus Type 1, Hx Diabetes Mellitus Type 2 Renal/ Medical History: Denies: Hx Peritoneal Dialysis GI Medical History: Denies: Hx Cirrhosis, Hx Hepatitis Musculoskeletal Medical History: Denies Hx Arthritis, Denies Hx Gout, Reports Hx Musculoskeletal Deformity - right hip avascular necrosis Skin Medical History: Denies Hx Eczema, Denies Hx Psoriasis Psychiatric Medical History: Reports: Hx Depression Infectious Medical History: Denies: Hx Hepatitis Past Surgical History: Reports: Hx Appendectomy, Hx Vascular Surgery - L port placement, Other - Port placement - Immunizations Immunizations up to date: Yes Hx Diphtheria, Pertussis, Tetanus Vaccination: Yes Hx Pneumococcal Vaccination: 02/20/11 <UMA RACHEL - Last Filed: 11/23/18 08:28> Review of Systems - Review of Systems Constitutional: Malaise. denies: Chills, Fever EENT: No symptoms reported Cardiovascular: denies: Chest pain, Dyspnea, Syncope, Dizziness, Lightheaded Respiratory: Cough, Short of breath Gastrointestinal: denies: Abdominal pain, Diarrhea, Nausea, Vomiting Musculoskeletal: See HPI Skin: See HPI Neurological/Psychological: See HPI -: Yes All other systems reviewed and negative <UMA RACHEL - Last Filed: 11/23/18 08:28> Physical Exam - Vital signs Interpretation: Normal - General In distress: Moderate - HEENT Head: Normocephalic, Atraumatic Eyes: Normal Pupils: PERRL - Respiratory Respiratory status: No respiratory distress Chest status: Nontender Breath sounds: Nonproductive cough. No: Decreased air movement, Rales, Rhonchi, Stridor, Wheezing Chest palpation: Normal - Cardiovascular Rhythm: Regular Heart sounds: Normal auscultation Murmur: No - Back Back: Normal, Nontender - Neurological Neuro grossly intact: Yes Cognition: Normal Orientation: AAOx4 [place] Coma Scale Eye Opening: Spontaneous [place]anni Coma Scale Verbal: Oriented [place] Coma Scale Motor: Obeys Commands [place] Coma Scale Total: 15 Speech: Normal Motor strength normal: LUE, RUE, LLE, RLE Sensory: Normal - Psychological Associated symptoms: Normal affect, Normal mood - Skin Skin Temperature: Warm Skin Moisture: Dry Skin Color: Normal <UMA RACHEL - Last Filed: 11/23/18 08:28> - Vital signs Vitals: Temp Pulse Resp BP Pulse Ox 98.5 F 78 18 127/81 H 96 11/22/18 13:27 11/22/18 13:27 11/22/18 13:27 11/22/18 13:27 11/22/18 13:27 - General Notes: Moderate pain distress (UMA RACHEL) Course - Laboratory Result Diagrams: 11/22/18 17:14 11/22/18 17:14 <TIFF MICHELLE - Last Filed: 11/22/18 21:41> - Laboratory Result Diagrams: 11/22/18 17:14 11/22/18 17:14 - Diagnostic Test Radiology reviewed: Image reviewed, Reports reviewed <UMA RACHEL - Last Filed: 11/23/18 08:28> - Re-evaluation Re-evalutation: 11/22/18 21:40 Patient was given a final dose after request. I reevaluated bedside. He is sitting up, smiling, well-appearing. He states he feels great. He states he does not want to be admitted to the hospital and he wants to go home. He denies any current complaints. He states he will follow-up closely with his fire protection engineer (Dr. Medellin), and he will return if he worsens. Stable at time of discharge. (TIFF MICHELLE) 11/22/18 Continues to have the same pain despite 2 mg of morphine and 25 mg of Benadryl. We have discussed giving patient more pain control. Noted hemoglobin of 9.6. He does have an elevated reticulocyte count. He also has an elevated LDH. He is afebrile. Noted x-ray reading with possible early pneumonia versus atelectasis. We will continue to try to control pain but if unsuccessful after this next round of 2 mg of morphine will discuss possible admission with hospitalist. 11/22/18 20:18 Patient with some improved pain from last round of 2 mg of Dilaudid. He would like to wait another 30 minutes to see how his pain is prior to discussing admission. discussed patient with RICHELLE Edwards. He will monitor patient and disposition accordingly. (UMA RACHEL) - Vital Signs Vital signs: Temp Pulse Resp BP Pulse Ox 98.1 F 66 12 137/88 H 96 11/22/18 17:38 11/22/18 17:38 11/22/18 21:01 11/22/18 21:01 11/22/18 21:01 - Laboratory Laboratory results interpreted by me: 11/22/18 11/22/18 11/22/18 17:14 17:14 17:14 RBC 2.92 L Hgb 9.6 L Hct 28.6 L MCV 98 H RDW 21.8 H Plt Count 594 H Retic Count (auto) 9.74 H Absolute Retic 0.285 H Chloride 108 H Total Bilirubin 1.7 H Lactate Dehydrogenase 427 H Total Protein 8.8 H Discharge <TIFF MICHELLE - Last Filed: 11/22/18 21:41> <UMA RACHEL - Last Filed: 11/23/18 08:28> - Discharge Clinical Impression: Sickle cell anemia with pain Condition: Stable Disposition: HOME, SELF-CARE Additional Instructions: Follow-up closely with your fire protection engineer. Continue your current medications. Return if you worsen including severe pain, fever, shortness of breath, or any other concerning or worsening symptoms. Referrals: BETH MEDELLIN MD [Primary Care Provider] - Follow up as needed
[2018-11-22 17:30] LABS: ABSOLUTE RETICS # 0.285 10^6/uL (0.028-0.122); HEMATOCRIT 28.6 % (37.9-51.0); HEMOGLOBIN 9.6 g/dL (13.5-17.0); MEAN CORPUSCULAR HEMOGLOBIN 32.9 pg (27.0-33.4); MEAN CORPUSCULAR HGB CONC 33.5 g/dL (32.0-36.0); MEAN CORPUSCULAR VOLUME 98 fl (80-97); PLATELET COUNT 594 10^3/uL (150-450); RED BLOOD COUNT 2.92 10^6/uL (4.35-5.55); RED CELL DISTRIBUTION WIDTH 21.8 % (11.5-14.0); RETICULOCYTE COUNT (AUTO) 9.74 % (0.66-2.85); WHITE BLOOD COUNT 7.4 10^3/uL (4.0-10.5)
[2018-11-22 17:48] LABS: ALBUMIN 4.4 g/dL (3.5-5.0); ALKALINE PHOSPHATASE 74 U/L (38-126); ANION GAP 7 (5-19); ASPARTATE AMINO TRANSFERASE 44 U/L (17-59); BILIRUBIN,DIRECT 0.2 mg/dL (0.0-0.4); BILIRUBIN,TOTAL 1.7 mg/dL (0.2-1.3); BLOOD UREA NITROGEN 9 mg/dL (7-20); CALCIUM 9.1 mg/dL (8.4-10.2); CARBON DIOXIDE 26 mmol/L (22-30); CHLORIDE 108 mmol/L (98-107); GLUCOSE 84 mg/dL (75-110); POTASSIUM 3.7 mmol/L (3.6-5.0); TOTAL PROTEIN 8.8 g/dL (6.3-8.2)
[2018-11-22 17:50] LABS: ABSOLUTE LYMPHOCYTES# (MANUAL) 2.1 10^3/uL (0.5-4.7); BASOPHILS % (MANUAL) 0 % (0-2); EOSINOPHILS % (MANUAL) 3 % (0-6); LYMPHOCYTES % (MANUAL) 29 % (13-45); MONOCYTES % (MANUAL) 13 % (3-13); NUCLEATED RED BLOOD CELLS 8 /100 WBC (0); SEGMENTED NEUTROPHILS % (MAN) 55 % (42-78); TOTAL CELLS COUNTED 100
[2018-11-22 17:54] LABS: ANISOCYTOSIS 3+; OVALOCYTES 1+; PLATELET CLUMPS PRESENT; PLATELET COMMENT INCREASED; PLATELET GIANT PRESENT; POIKILOCYTOSIS 2+; POLYCHROMASIA 1+; SICKLE RED CELLS SLIGHT; TARGET CELLS 1+
[2018-11-22 21:51] VITALS: BP 137/88
== END 2018-11-22 22:00 | disposition home or self-care (01) ==
LOC: ER 13:23
DX: D57.00 Hb-SS disease with crisis, unspecified (principal); M79.10 Myalgia, unspecified site
CPT/HCPCS: 36591; 96376; 99284; 96361; 96374; 96375; 36415; 83615; 85025; 85045; 80053; 81001; 71046; J1200; J1170; J7030; J1642

== ENCOUNTER 2018-11-25 09:13 | Outpatient (CLI) | payer MEDICARE, MEDICAID ==
[2018-11-25] MEDS ORDERED: NORMAL SALINE 1000 ML 1,000 ML IV PRN (09:23)
[2018-11-25] MEDS ORDERED: DIPHENHYDRAMINE HCL 25 MG in NORMAL SALINE 50 ML INJ PRN (09:23)
[2018-11-25] MEDS ORDERED: HYDROMORPHONE HCL INJ/PF 2 MG/ML AMPULE IV PRN (09:24)
[2018-11-25 09:47] VITALS: BP 136/85
== END 2018-11-25 11:26 | disposition home or self-care (01) ==
LOC: II 09:13 → 5TH 10:15 → II 11:26
PROVIDERS: ATTEND Internal Medicine
PROC: 3E0437Z Introduction of Electrolytic and Water Balance Substance into Central Vein, Percutaneous Approach (ICD-10-PCS; principal; 2018-11-25)
PROC: 3E043GC Introduction of Other Therapeutic Substance into Central Vein, Percutaneous Approach (ICD-10-PCS; 2018-11-25)
DX: D57.1 Sickle-cell disease without crisis (principal); E86.0 Dehydration; R52 Pain, unspecified
CPT/HCPCS: 96365; 96375; 96361; J1200; J1170; J1642; 96366; 96374

== ENCOUNTER 2018-11-26 10:48 | Outpatient (CLI) | payer MEDICARE, MEDICAID ==
[~2018-11-26 10:48] MED LIST changes: -DIPHENHYDRAMINE 50 MG in NS 50 ML IV PRN
[2018-11-26 11:00] VITALS: BP 121/79
== END 2018-11-26 13:32 | disposition home or self-care (01) ==
LOC: II 10:48 → 5TH 10:51 → II 13:32
PROVIDERS: ATTEND Internal Medicine
PROC: 3E043GC Introduction of Other Therapeutic Substance into Central Vein, Percutaneous Approach (ICD-10-PCS; principal; 2018-11-26)
PROC: 3E0437Z Introduction of Electrolytic and Water Balance Substance into Central Vein, Percutaneous Approach (ICD-10-PCS; 2018-11-26)
DX: D57.1 Sickle-cell disease without crisis (principal); E86.0 Dehydration; R52 Pain, unspecified
CPT/HCPCS: 96366; 96374; 96360; J1200; J1170; J1642; 96361; 96365; 96375

== ENCOUNTER 2018-11-27 08:11 | Outpatient (CLI) | payer MEDICARE, MEDICAID ==
[~2018-11-27 08:11] MED LIST changes: -NORMAL SALINE 1000 ML 1,000 ML IV PRN; +NORMAL SALINE 1000 ML @ AS DIRECTED IV PRN
[2018-11-27 08:29] VITALS: BP 136/84
== END 2018-11-27 10:17 | disposition home or self-care (01) ==
LOC: II 08:11 → 5TH 08:27 → II 10:17
PROVIDERS: ATTEND Internal Medicine
PROC: 3E0437Z Introduction of Electrolytic and Water Balance Substance into Central Vein, Percutaneous Approach (ICD-10-PCS; principal; 2018-11-27)
PROC: 3E043GC Introduction of Other Therapeutic Substance into Central Vein, Percutaneous Approach (ICD-10-PCS; 2018-11-27)
DX: D57.1 Sickle-cell disease without crisis (principal); E86.0 Dehydration; R52 Pain, unspecified
CPT/HCPCS: 96366; 96375; 96361; J1200; J1170; J1642; 96365

== ENCOUNTER 2018-11-28 16:28 | Emergency (ER) | payer MEDICARE, MEDICAID ==
[2018-11-28] MEDS ORDERED: NORMAL SALINE 500 ML IV ONE (17:08)
--- NOTE | 2018-11-28 17:20 | ER Document Report ---
ED Medical Screen (RME) - General Chief Complaint: Sickle Cell Crisis Stated Complaint: BODY PAIN Time Seen by Provider: 11/28/18 17:07 Primary Care Provider: BETH STAPLETON MD [Primary Care Provider] - Follow up as needed Mode of Arrival: Ambulatory Information source: Patient Notes: 37-year-old male presented to ED for complaint of chronic sickle cell pain. He states he has the same pain he always has with priapism chest pain and leg pain. He states it started about 3:00 this morning but he had several hair appointments today so it was not able to come in until now. He states he did speak with Dr. Stapleton who told him to come to the emergency room. Patient is alert oriented respirations regular and unlabored speaking in full sentences walks with a even steady gait. Patient is nontoxic in appearance. I have greeted and performed a rapid initial assessment of this patient. A comprehensive ED assessment and evaluation of the patient, analysis of test results and completion of medical decision making process will be conducted by an additional ED providers. Dictation of this chart was performed using voice recognition software; therefore, there may be some unintended grammatical errors. TRAVEL OUTSIDE OF THE [place] IN LAST 30 DAYS: No - Related Data Allergies/Adverse Reactions: famotidine [From Pepcid] Allergy (Severe, Verified 11/28/18 16:30) Anaphylaxis ketorolac tromethamine [From Toradol] Allergy (Severe, Verified 11/28/18 16:30) levofloxacin [From Levaquin] Allergy (Severe, Verified 11/28/18 16:30) meperidine HCl [From Demerol] Allergy (Severe, Verified 11/28/18 16:30) morphine [Morphine] Allergy (Severe, Verified 11/28/18 16:30) tramadol HCl [From Ultram] Allergy (Severe, Verified 11/28/18 16:30) amoxicillin [Amoxicillin] Allergy (Verified 11/28/18 16:30) fentanyl [Fentanyl] Allergy (Verified 11/28/18 16:30) latex [Latex] Allergy (Verified 11/28/18 16:30) ondansetron HCl [From Zofran] Allergy (Verified 11/28/18 16:30) Pork/Porcine Containing Products Allergy (Verified 11/28/18 16:30) Past Medical History - Social History Chew tobacco use (# tins/day): No Frequency of alcohol use: None Drug Abuse: None - Past Medical History Cardiac Medical History: Denies: Hx Atrial Fibrillation, Hx Congestive Heart Failure, Hx Coronary Artery Disease Pulmonary Medical History: Reports: Hx Pneumonia Denies: Hx Asthma, Hx Bronchitis, Hx COPD, Hx Tuberculosis Neurological Medical History: Reports: Hx Seizures. Denies: Hx Migraine Endocrine Medical History: Denies: Hx Diabetes Mellitus Type 1, Hx Diabetes Mellitus Type 2 Renal/ Medical History: Denies: Hx Peritoneal Dialysis GI Medical History: Denies: Hx Cirrhosis, Hx Hepatitis Musculoskeltal Medical History: Denies Hx Arthritis, Denies Hx Gout, Reports Hx Musculoskeletal Deformity - right hip avascular necrosis Skin Medical History: Denies Hx Eczema, Denies Hx Psoriasis Psychiatric Medical History: Reports: Hx Depression Infectious Medical History: Denies: Hx Hepatitis Past Surgical History: Reports: Hx Appendectomy, Hx Vascular Surgery - L port placement, Other - Port placement - Immunizations Immunizations up to date: Yes Hx Diphtheria, Pertussis, Tetanus Vaccination: Yes Physical Exam - Vital signs Vitals: Temp Pulse Resp BP Pulse Ox 98.4 F 68 18 139/86 H 95 11/28/18 16:30 11/28/18 16:30 11/28/18 16:30 11/28/18 16:30 11/28/18 16:30 Course - Vital Signs Vital signs: Temp Pulse Resp BP Pulse Ox 98.4 F 68 18 139/86 H 95 11/28/18 16:30 11/28/18 16:30 11/28/18 16:30 11/28/18 16:30 11/28/18 16:30 Doctor's Discharge - Discharge Referrals: BETH STAPLETON MD [Primary Care Provider] - Follow up as needed
--- NOTE | 2018-11-28 18:26 | ER Document Report ---
ED General Pain - General Chief Complaint: Sickle Cell Crisis Stated Complaint: BODY PAIN Time Seen by Provider: 11/28/18 17:07 Primary Care Provider: BETH STAPLETON MD [Primary Care Provider] - Follow up as needed Mode of Arrival: Ambulatory Notes: 37-year-old male to the emergency department chief complaint sickle cell crisis. Patient was seen here 3 days ago for the same. Followed by Dr. Mckenzie kovacs. States that he was having some pain in his penis as well as his chest. It has gotten better not worse. Denies any fever, chills, sweats. Denies any other issues at this time. TRAVEL OUTSIDE OF THE [place] IN LAST 30 DAYS: No - HPI Onset: Last week Onset/Duration: Gradual, Constant Quality of pain: Achy Severity: Moderate Pain Level: 4 Context: Chronic problem Genotype: SS Associated symptoms: None - Related Data Allergies/Adverse Reactions: famotidine [From Pepcid] Allergy (Severe, Verified 11/28/18 16:30) Anaphylaxis ketorolac tromethamine [From Toradol] Allergy (Severe, Verified 11/28/18 16:30) levofloxacin [From Levaquin] Allergy (Severe, Verified 11/28/18 16:30) meperidine HCl [From Demerol] Allergy (Severe, Verified 11/28/18 16:30) morphine [Morphine] Allergy (Severe, Verified 11/28/18 16:30) tramadol HCl [From Ultram] Allergy (Severe, Verified 11/28/18 16:30) amoxicillin [Amoxicillin] Allergy (Verified 11/28/18 16:30) fentanyl [Fentanyl] Allergy (Verified 11/28/18 16:30) latex [Latex] Allergy (Verified 11/28/18 16:30) ondansetron HCl [From Zofran] Allergy (Verified 11/28/18 16:30) Pork/Porcine Containing Products Allergy (Verified 11/28/18 16:30) Past Medical History - General Information source: Patient - Social History Smoking Status: Never Smoker Chew tobacco use (# tins/day): No Frequency of alcohol use: None Drug Abuse: None Family History: Reviewed & Not Pertinent, Hypertension Patient has suicidal ideation: No Patient has homicidal ideation: No - Past Medical History Cardiac Medical History: Denies: Hx Atrial Fibrillation, Hx Congestive Heart Failure, Hx Coronary Artery Disease Pulmonary Medical History: Reports: Hx Pneumonia Denies: Hx Asthma, Hx Bronchitis, Hx COPD, Hx Tuberculosis Neurological Medical History: Reports: Hx Seizures. Denies: Hx Migraine Endocrine Medical History: Denies: Hx Diabetes Mellitus Type 1, Hx Diabetes Mellitus Type 2 Renal/ Medical History: Denies: Hx Peritoneal Dialysis GI Medical History: Denies: Hx Cirrhosis, Hx Hepatitis Musculoskeletal Medical History: Denies Hx Arthritis, Denies Hx Gout, Reports Hx Musculoskeletal Deformity - right hip avascular necrosis Skin Medical History: Denies Hx Eczema, Denies Hx Psoriasis Psychiatric Medical History: Reports: Hx Depression Infectious Medical History: Denies: Hx Hepatitis Past Surgical History: Reports: Hx Appendectomy, Hx Vascular Surgery - L port placement, Other - Port placement - Immunizations Immunizations up to date: Yes Hx Diphtheria, Pertussis, Tetanus Vaccination: Yes Hx Pneumococcal Vaccination: 02/20/11 Review of Systems - Review of Systems Notes: Constitutional: denies: Chills, Diaphoresis, Fever, Malaise, Weakness EENT: denies: Eye discharge, Blurred vision, Tearing, Double vision, Nose congestion, Nose discharge, Throat swelling, Mouth pain Cardiovascular: denies: Palpitations, Heart racing, Orthopnea, Dyspnea, +Chest pain Respiratory: denies: Cough, Hurts to breathe, Wheezing, +Shortness of breath Gastrointestinal: denies: Abdominal pain, Diarrhea, Nausea, Vomiting, Black stools, bright red blood in stool Genitourinary: denies: Burning, Dysuria, Discharge, Frequency, Flank pain, Hematuria and complaining of pain in the penis with intermittent priapism Musculoskeletal: +diffuse joint pain, no muscle pain. Hematologic/Lymphatic: denies: Anemia, Easy bleeding, Easy bruising, Blood clots Neurological/Psychological: denies: Confusion, Dementia, Depression, Loss of consciousness Skin: No lesions, no masses, no skin breakdown, no abscesses Physical Exam - Vital signs Vitals: Temp Pulse Resp BP Pulse Ox 98.4 F 68 18 139/86 H 95 11/28/18 16:30 11/28/18 16:30 11/28/18 16:30 11/28/18 16:30 11/28/18 16:30 Interpretation: Normal - General General appearance: Appears well, Alert - HEENT Head: Normocephalic, Atraumatic Eyes: Normal Pupils: PERRL - Respiratory Respiratory status: No respiratory distress Chest status: Nontender Breath sounds: Other - Few faint crackles at the bases bilaterally. No cough. Chest palpation: Normal - Cardiovascular Rhythm: Regular Heart sounds: Normal auscultation Murmur: No - Abdominal Inspection: Normal Distension: No distension Bowel sounds: Normal Tenderness: Nontender Organomegaly: No organomegaly - Back Back: Normal, Nontender - Extremities General upper extremity: Normal inspection, Nontender, Normal color, Normal ROM, Normal temperature General lower extremity: Normal inspection, Nontender, Normal color, Normal ROM, Normal temperature, Normal weight bearing. No: Herber's sign - Neurological Neuro grossly intact: Yes Cognition: Normal Orientation: AAOx4 [place] Coma Scale Eye Opening: Spontaneous [place] Coma Scale Verbal: Oriented [place] Coma Scale Motor: Obeys Commands [place] Coma Scale Total: 15 Speech: Normal Motor strength normal: LUE, RUE, LLE, RLE Sensory: Normal - Psychological Associated symptoms: Normal affect, Normal mood - Skin Skin Temperature: Warm Skin Moisture: Dry Skin Color: Normal Course - Re-evaluation Re-evalutation: 11/28/18 20:54 Laboratory 11/28/18 11/28/18 18:45 18:45 WBC 7.4 RBC 2.96 L Hgb 9.7 L Hct 29.1 L MCV 98 H MCH 32.8 MCHC 33.4 RDW 21.5 H Plt Count 386 Total Counted 100 Seg Neutrophils % Not Reportable Seg Neuts % (Manual) 51 Lymphocytes % Not Reportable Lymphocytes % (Manual) 39 Monocytes % Not Reportable Monocytes % (Manual) 8 Eosinophils % Not Reportable Eosinophils % (Manual) 2 Basophils % Not Reportable Basophils % (Manual) 0 Absolute Neutrophils Not Reportable Abs Neuts (Manual) 3.8 Absolute Lymphocytes Not Reportable Abs Lymphs (Manual) 2.9 Absolute Monocytes Not Reportable Abs Monocytes (Manual) 0.6 Absolute Eosinophils Not Reportable Absolute Eos (Manual) 0.1 Absolute Basophils Not Reportable Abs Basophils (Manual) 0.0 Nucleated RBCs 2 Platelet Comment ADEQUATE Polychromasia 1+ Hypochromasia SLIGHT Poikilocytosis 2+ Anisocytosis 3+ Sickle Cells 2+ Target Cells 1+ [place] Bodies PRESENT Schistocytes SLIGHT Retic Count (auto) 8.69 H Absolute Retic 0.257 H Sodium 141.2 Potassium 3.5 L Chloride 104 Carbon Dioxide 28 Anion Gap 9 BUN 8 Creatinine 0.70 Est GFR ( Amer) > 60 Est GFR (Non-Af Amer) > 60 Glucose 70 L Calcium 9.1 Total Bilirubin 1.7 H Direct Bilirubin 0.3 Neonat Total Bilirubin Not Reportable Neonat Direct Bilirubin Not Reportable Neonat Indirect Bili Not Reportable AST 31 ALT 22 Alkaline Phosphatase 63 Total Protein 8.5 H Albumin 4.4 Chest X-Ray 11/28/18 18:56 IMPRESSION: Mild increased interstitial markings, similar to the prior study. No consolidation or significant pleural effusion. 11/28/18 20:54 I did speak with patient's microcomputer support specialist Dr. Fiore recommends giving him 3 mg of Dilaudid. At this time patient is having a little nausea so we will hold off on that. His labs are better than before. Chest x-ray is unchanged from before. The patient can be DC'd to home shortly. We will continue to treat for his pain at nausea at this time. - Vital Signs Vital signs: Temp Pulse Resp BP Pulse Ox 98.6 F 59 L 14 138/83 H 100 11/28/18 20:37 11/28/18 20:37 11/28/18 20:37 11/28/18 20:37 11/28/18 20:37 - Laboratory Result Diagrams: 11/28/18 18:45 11/28/18 18:45 Laboratory results interpreted by me: 11/28/18 11/28/18 18:45 18:45 RBC 2.96 L Hgb 9.7 L Hct 29.1 L MCV 98 H RDW 21.5 H Retic Count (auto) 8.69 H Absolute Retic 0.257 H Potassium 3.5 L Glucose 70 L Total Bilirubin 1.7 H Total Protein 8.5 H - EKG Interpretation by Mi EKG shows normal: Sinus rhythm, Mar[place], Intervals, QRS Complexes, ST-T Waves Discharge - Discharge Clinical Impression: Sickle cell anemia Qualifiers: Sickle-cell associated disorders: with unspecified crisis Qualified Code(s): D57.00 - Hb-SS disease with crisis, unspecified; 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 Follow-up your oncologist. Ret urn for worsening symptoms or concerns. Referrals: BETH STAPLETON MD [Primary Care Provider] - Follow up as needed
[2018-11-28] MEDS ORDERED: HYDROMORPHONE HCL INJ/PF 2 MG/ML AMPULE IV ONE ×2 (18:55→20:40)
[2018-11-28] MEDS ORDERED: DIPHENHYDRAMINE HCL 50 MG/ML VIAL IV ONE ×2 (18:56→20:02)
[2018-11-28 19:38] LABS: ALBUMIN 4.4 g/dL (3.5-5.0); ALKALINE PHOSPHATASE 63 U/L (38-126); ANION GAP 9 (5-19); ASPARTATE AMINO TRANSFERASE 31 U/L (17-59); BILIRUBIN,DIRECT 0.3 mg/dL (0.0-0.4); BILIRUBIN,TOTAL 1.7 mg/dL (0.2-1.3); BLOOD UREA NITROGEN 8 mg/dL (7-20); CALCIUM 9.1 mg/dL (8.4-10.2); CARBON DIOXIDE 28 mmol/L (22-30); CHLORIDE 104 mmol/L (98-107); GLUCOSE 70 mg/dL (75-110); POTASSIUM 3.5 mmol/L (3.6-5.0); TOTAL PROTEIN 8.5 g/dL (6.3-8.2)
--- NOTE | 2018-11-28 19:43 | RADIOLOGY REPORT (SQ) ---
EXAM DESCRIPTION: CHEST SINGLE VIEW COMPLETED DATE/TIME: 11/28/2018 7:16 pm REASON FOR STUDY: chest pain COMPARISON: 11/24/2018 TECHNIQUE: Single frontal radiographic view of the chest acquired. NUMBER OF VIEWS: One view. LIMITATIONS: None. FINDINGS: LUNGS AND PLEURA: No pneumothorax. Mild increased interstitial markings, similar to the p rior study. No consolidation or significant pleural effusion. MEDIASTINUM AND HILAR STRUCTURES: Stable. HEART AND VASCULAR STRUCTURES: Stable. BONES: No acute findings. HARDWARE: Left chest port, stable. OTHER: No other significant finding. IMPRESSION: Mild increased interstitial markings, similar to the prior study. No consolidation or s ignificant pleural effusion. TECHNICAL DOCUMENTATION: JOB ID: [id number] [id number] 2010 [employer]- All Rights Reserved Reading location - IP/workstation name: [email or web address]
[2018-11-28 19:45] LABS: ABSOLUTE RETICS # 0.257 10^6/uL (0.028-0.122); HEMATOCRIT 29.1 % (37.9-51.0); HEMOGLOBIN 9.7 g/dL (13.5-17.0); MEAN CORPUSCULAR HEMOGLOBIN 32.8 pg (27.0-33.4); MEAN CORPUSCULAR HGB CONC 33.4 g/dL (32.0-36.0); MEAN CORPUSCULAR VOLUME 98 fl (80-97); PLATELET COUNT 386 10^3/uL (150-450); RED BLOOD COUNT 2.96 10^6/uL (4.35-5.55); RED CELL DISTRIBUTION WIDTH 21.5 % (11.5-14.0); RETICULOCYTE COUNT (AUTO) 8.69 % (0.66-2.85); WHITE BLOOD COUNT 7.4 10^3/uL (4.0-10.5)
[2018-11-28] MEDS ORDERED: IPRATROPIUM/ALBUTEROL 0.5-2.5 MG/3 ML AMPUL NEB ONE (19:51)
[2018-11-28 20:01] LABS: ABSOLUTE LYMPHOCYTES# (MANUAL) 2.9 10^3/uL (0.5-4.7); ABSOLUTE MONOCYTES # (MANUAL) 0.6 10^3/uL (0.1-1.4); ANISOCYTOSIS 3+; BASOPHILS % (MANUAL) 0 % (0-2); EOSINOPHILS % (MANUAL) 2 % (0-6); HOWELL-JOLLY BODIES PRESENT; LYMPHOCYTES % (MANUAL) 39 % (13-45); MONOCYTES % (MANUAL) 8 % (3-13); NUCLEATED RED BLOOD CELLS 2 /100 WBC (0); PLATELET COMMENT ADEQUATE; POIKILOCYTOSIS 2+; POLYCHROMASIA 1+; SEGMENTED NEUTROPHILS % (MAN) 51 % (42-78); SICKLE RED CELLS 2+; TOTAL CELLS COUNTED 100
[2018-11-28 20:02] LABS: HYPOCHROMASIA SLIGHT; SCHISTOCYTES SLIGHT; TARGET CELLS 1+
[2018-11-28] MEDS ORDERED: OXYCODONE-ACETAMINOPHEN 5-325 MG TABLET PO ONE (20:02)
[2018-11-28] MEDS ORDERED: PROCHLORPERAZINE EDISYLATE INJ 10 MG/2 ML VIAL IV ONE (20:51)
[2018-11-28 23:49] VITALS: BP 130/72
--- NOTE | 2018-11-29 09:24 | EKG REPORT ---
SEVERITY:- BORDERLINE ECG - SINUS RHYTHM BORDERLINE T ABNORMALITIES, ANT-LAT LEADS : Confirmed by: Emre Montoya MD 29-Nov-2018 09:23:31
== END 2018-11-28 23:30 | disposition home or self-care (01) ==
LOC: ER 16:28
DX: D57.00 Hb-SS disease with crisis, unspecified (principal); R07.9 Chest pain, unspecified; N48.89 Other specified disorders of penis; R11.0 Nausea; M25.50 Pain in unspecified joint; R09.89 Other specified symptoms and signs involving the circulatory and respiratory systems; Z87.01 Personal history of pneumonia (recurrent); Z88.8 Allergy status to other drugs, medicaments and biological substances; Z88.1 Allergy status to other antibiotic agents; Z88.5 Allergy status to narcotic agent; Z88.0 Allergy status to penicillin; Z91.040 Latex allergy status; Z91.018 Allergy to other foods
CPT/HCPCS: 93005; 36415; 85025; 85045; 80053; 71045; 93010; J1200; A9270 ×2; J1170; J7040; J1642; 94640; 96361; 96374; 96375; 96376; 99284; J7620

== ENCOUNTER 2018-12-01 15:54 | Outpatient (CLI) | payer MEDICARE, MEDICAID ==
[2018-12-01] MEDS ORDERED: DIPHENHYDRAMINE HCL 50 MG/ML VIAL ONE (16:40)
[2018-12-01] MEDS ORDERED: HYDROMORPHONE HCL INJ/PF 2 MG/ML AMPULE IV PRN (16:45)
[2018-12-01] MEDS ORDERED: NORMAL SALINE 1000 ML 1,000 ML IV PRN (16:45)
[2018-12-01] MEDS ORDERED: DIPHENHYDRAMINE HCL 25 MG in NORMAL SALINE 50 ML IV PRN (16:45)
== END 2018-12-01 18:22 | disposition home or self-care (01) ==
LOC: II 15:54 → 4N 15:57 → II 18:22
PROVIDERS: ATTEND Internal Medicine
PROC: 3E043GC Introduction of Other Therapeutic Substance into Central Vein, Percutaneous Approach (ICD-10-PCS; principal; 2018-12-01)
PROC: 3E0437Z Introduction of Electrolytic and Water Balance Substance into Central Vein, Percutaneous Approach (ICD-10-PCS; 2018-12-01)
DX: D57.1 Sickle-cell disease without crisis (principal); E86.0 Dehydration; R52 Pain, unspecified
CPT/HCPCS: 96374; 96375; 96361; J1200; J1170; J7030; J1642

== ENCOUNTER 2018-12-02 09:12 | Outpatient (CLI) | payer MEDICARE, MEDICAID ==
[2018-12-02 10:14] VITALS: BP 135/83
[2018-12-02] MEDS ORDERED: HYDROMORPHONE HCL INJ/PF 2 MG/ML AMPULE IV PRN (10:14)
[2018-12-02] MEDS ORDERED: DIPHENHYDRAMINE HCL 25 MG in NORMAL SALINE 50 ML IV PRN (10:15)
[2018-12-02] MEDS ORDERED: NORMAL SALINE 1000 ML 1,000 ML IV PRN (10:16)
== END 2018-12-02 13:03 | disposition home or self-care (01) ==
LOC: II 09:12 → 5TH 10:18 → II 13:03
PROVIDERS: ATTEND Internal Medicine
PROC: 3E0437Z Introduction of Electrolytic and Water Balance Substance into Central Vein, Percutaneous Approach (ICD-10-PCS; principal; 2018-12-02)
PROC: 3E043GC Introduction of Other Therapeutic Substance into Central Vein, Percutaneous Approach (ICD-10-PCS; 2018-12-02)
DX: D57.1 Sickle-cell disease without crisis (principal); E86.0 Dehydration; R52 Pain, unspecified
CPT/HCPCS: 96365; 96375; 96361; J1200; J1170; J1642; 96360; 96366

== ENCOUNTER 2018-12-03 09:35 | Outpatient (CLI) | payer MEDICARE, MEDICAID ==
[2018-12-03] MEDS ORDERED: DIPHENHYDRAMINE HCL 25 MG in NORMAL SALINE 50 ML IV PRN (09:47)
[2018-12-03] MEDS ORDERED: NORMAL SALINE 1000 ML 1,000 ML IV PRN (09:48)
[2018-12-03] MEDS ORDERED: HYDROMORPHONE HCL INJ/PF 2 MG/ML AMPULE IV PRN (09:50)
[2018-12-03 09:55] VITALS: BP 129/85
== END 2018-12-03 11:17 | disposition home or self-care (01) ==
LOC: II 09:35 → 5TH 09:35 → II 11:17
PROVIDERS: ATTEND Internal Medicine
PROC: 3E0437Z Introduction of Electrolytic and Water Balance Substance into Central Vein, Percutaneous Approach (ICD-10-PCS; principal; 2018-12-03)
PROC: 3E043GC Introduction of Other Therapeutic Substance into Central Vein, Percutaneous Approach (ICD-10-PCS; 2018-12-03)
DX: D57.1 Sickle-cell disease without crisis (principal); E86.0 Dehydration; R52 Pain, unspecified
CPT/HCPCS: 96365; 96375; 96361; J1200; J1170; J1642; 96366

== ENCOUNTER 2018-12-04 12:47 | Outpatient (CLI) | payer MEDICARE, MEDICAID ==
[2018-12-04] MEDS ORDERED: DIPHENHYDRAMINE HCL 50 MG in NORMAL SALINE 50 ML IV PRN (12:57)
[2018-12-04] MEDS ORDERED: NORMAL SALINE 1000 ML @ AS DIRECTED IV PRN (12:58)
[2018-12-04] MEDS ORDERED: HYDROMORPHONE HCL INJ/PF 2 MG/ML AMPULE IV PRN ×2 (13:00→13:30)
[2018-12-04 13:03] VITALS: BP 137/89
[2018-12-04] MEDS ORDERED: DIPHENHYDRAMINE HCL 25 MG in NORMAL SALINE 50 ML IV PRN (13:06)
== END 2018-12-04 14:33 | disposition home or self-care (01) ==
LOC: II 12:47 → 5TH 12:48 → II 14:33
PROVIDERS: ATTEND Internal Medicine
PROC: 3E0437Z Introduction of Electrolytic and Water Balance Substance into Central Vein, Percutaneous Approach (ICD-10-PCS; principal; 2018-12-04)
PROC: 3E043GC Introduction of Other Therapeutic Substance into Central Vein, Percutaneous Approach (ICD-10-PCS; 2018-12-04)
DX: D57.1 Sickle-cell disease without crisis (principal); E86.0 Dehydration; R52 Pain, unspecified
CPT/HCPCS: 96365; 96375; 96361; J1200; J1170; J1642; 96366

== ENCOUNTER 2018-12-08 03:15 | Emergency (ER) | payer MEDICARE, MEDICAID ==
[2018-12-08] MEDS ORDERED: NORMAL SALINE 1000 ML 1,000 ML IV ONE ×2 (03:43→06:07)
[2018-12-08] MEDS ORDERED: HYDROMORPHONE HCL INJ/PF 2 MG/ML AMPULE IV ONE ×3 (03:44→05:55)
--- NOTE | 2018-12-08 03:54 | ER Document Report ---
ED General - General Chief Complaint: Penile Problem Stated Complaint: ABDOMINAL PAIN Time Seen by Provider: 12/08/18 03:31 Primary Care Provider: BETH MEDELLIN MD [Primary Care Provider] - Follow up in 3-5 days Mode of Arrival: Ambulatory Information source: Patient Notes: This 37-year-old male presents to the emergency department with history of sickle cell disease for complaints of stuttering priapism. Reports priapism started earlier this a.m. 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 Patient reports he took Sudafed terbutaline and baclofen. Reports now priapism is gone but his genitals feel like they are on fire. Reports started having some shortness of breath at around 0100. Reports achy from the waist down. Reports he has had a runny nose but no cough. Denies fever vomiting diarrhea. TRAVEL OUTSIDE OF THE [place] IN LAST 30 DAYS: No - HPI Onset: This morning - early this am Onset/Duration: Persistent Quality of pain: Achy Associated symptoms: None Exacerbated by: Denies Relieved by: Denies Similar symptoms previously: Yes Recently seen / treated by doctor: Yes - Related Data Allergies/Adverse Reactions: famotidine [From Pepcid] Allergy (Severe, Verified 11/28/18 16:30) Anaphylaxis ketorolac tromethamine [From Toradol] Allergy (Severe, Verified 11/28/18 16:30) levofloxacin [From Levaquin] Allergy (Severe, Verified 11/28/18 16:30) meperidine HCl [From Demerol] Allergy (Severe, Verified 11/28/18 16:30) morphine [Morphine] Allergy (Severe, Verified 11/28/18 16:30) tramadol HCl [From Ultram] Allergy (Severe, Verified 11/28/18 16:30) amoxicillin [Amoxicillin] Allergy (Verified 11/28/18 16:30) fentanyl [Fentanyl] Allergy (Verified 11/28/18 16:30) latex [Latex] Allergy (Verified 11/28/18 16:30) ondansetron HCl [From Zofran] Allergy (Verified 11/28/18 16:30) Pork/Porcine Containing Products Allergy (Verified 11/28/18 16:30) Past Medical History - General Information source: Patient - Social History Smoking Status: Unknown if Ever Smoked Cigarette use (# per day): No Frequency of alcohol use: None Drug Abuse: None Lives with: Family Family History: Reviewed & Not Pertinent, Hypertension Patient has suicidal ideation: No Patient has homicidal ideation: No - Past Medical History Cardiac Medical History: Denies: Hx Atrial Fibrillation, Hx Congestive Heart Failure, Hx Coronary Artery Disease Pulmonary Medical History: Reports: Hx Pneumonia Denies: Hx Asthma, Hx Bronchitis, Hx COPD, Hx Tuberculosis Neurological Medical History: Reports: Hx Seizures. Denies: Hx Migraine Endocrine Medical History: Denies: Hx Diabetes Mellitus Type 1, Hx Diabetes Mellitus Type 2 Renal/ Medical History: Denies: Hx Peritoneal Dialysis GI Medical History: Denies: Hx Cirrhosis, Hx Hepatitis Musculoskeletal Medical History: Denies Hx Arthritis, Denies Hx Gout, Reports Hx Musculoskeletal Deformity - right hip avascular necrosis Skin Medical History: Denies Hx Eczema, Denies Hx Psoriasis Psychiatric Medical History: Reports: Hx Depression Infectious Medical History: Denies: Hx Hepatitis Past Surgical History: Reports: Hx Appendectomy, Hx Vascular Surgery - L port placement, Other - Port placement - Immunizations Immunizations up to date: Yes Hx Diphtheria, Pertussis, Tetanus Vaccination: Yes Hx Pneumococcal Vaccination: 02/20/11 Review of Systems - Review of Systems Notes: Review HPI for review of systems., All other systems negative Physical Exam - Vital signs Vitals: Temp Pulse Resp BP Pulse Ox 98.1 F 71 16 132/89 H 95 12/08/18 03:27 12/08/18 03:27 12/08/18 03:27 12/08/18 03:27 12/08/18 03:27 - General General appearance: Alert In distress: None - HEENT Head: Normocephalic Eyes: Normal Conjunctiva: Normal Extraocular movements intact: Yes Neck: Normal, Supple - Respiratory Respiratory status: No respiratory distress Chest status: Nontender Breath sounds: Normal Chest palpation: Normal - Cardiovascular Rhythm: Regular Heart sounds: Normal auscultation Murmur: No - Abdominal Inspection: Normal Distension: No distension Bowel sounds: Normal Tenderness: Nontender - Back Back: Normal - Extremities General upper extremity: Normal ROM General lower extremity: Normal ROM - Neurological Neuro grossly intact: Yes Cognition: Normal Orientation: AAOx4 [place] Coma Scale Eye Opening: Spontaneous [place] Coma Scale Verbal: Oriented [place] Coma Scale Motor: Obeys Commands [place] Coma Scale Total: 15 Speech: Normal Cerebellar coordination: Normal 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 Labs completed chest x-ray done. no leukocytosis, chest xray negative. h/h 9.8/28.5 0.335 retic count. which is average for patient. Labs reviewed with Dr Poole. Patient was given 2 L of fluid 4 mg of Dilaudid 50 mg of Benadryl. Patient reports he feels a lot better now is ready be discharged home. He was instructed to take his medication as prescribed follow-up with Dr. Medellin this week. He verbalized understanding to all instructions. Dictation of this chart was performed using voice recognition software; therefore, there may be some unintended grammatical errors. 12/08/18 04:32 12/08/18 04:32 MCV 99 fl (80-97) H 12/08/18 04:32 MCH 34.0 pg (27.0-33.4) H 12/08/18 04:32 MCHC 34.2 g/dL (32.0-36.0) 12/08/18 04:32 RDW 21.7 % (11.5-14.0) H 12/08/18 04:32 Seg Neutrophils % Not Reportable 12/08/18 04:32 Lymphocytes % Not Reportable 12/08/18 04:32 Monocytes % Not Reportable 12/08/18 04:32 Eosinophils % Not Reportable 12/08/18 04:32 Basophils % Not Reportable 12/08/18 04:32 Absolute Neutrophils Not Reportable 12/08/18 04:32 Absolute Lymphocytes Not Reportable 12/08/18 04:32 Absolute Monocytes Not Reportable 12/08/18 04:32 Absolute Eosinophils Not Reportable 12/08/18 04:32 Absolute Basophils Not Reportable 12/08/18 04:32 Retic Count (auto) 11.68 % (0.66-2.85) H 12/08/18 04:32 Absolute Retic 0.335 10^6/uL (0.028-0.122) H 12/08/18 04:32 Chloride 107 mmol/L (98-107) 12/08/18 04:32 Carbon Dioxide 25 mmol/L (22-30) 12/08/18 04:32 Anion Gap 8 (5-19) 12/08/18 04:32 Est GFR ( Amer) > 60 (>60) 12/08/18 04:32 Est GFR (Non-Af Amer) > 60 (>60) 12/08/18 04:32 Glucose 90 mg/dL (75-110) 12/08/18 04:32 Calcium 8.5 mg/dL (8.4-10.2) 12/08/18 04:32 Total Bilirubin 1.8 mg/dL (0.2-1.3) H 12/08/18 04:32 AST 35 U/L (17-59) 12/08/18 04:32 Alkaline Phosphatase 69 U/L (38-126) 12/08/18 04:32 Total Protein 7.7 g/dL (6.3-8.2) 12/08/18 04:32 Albumin 4.2 g/dL (3.5-5.0) 12/08/18 04:32 Urine Color YELLOW 12/08/18 07:10 Urine Appearance CLEAR 12/08/18 07:10 Urine pH 6.0 (5.0-9.0) 12/08/18 07:10 Ur Specific Busy 1.008 12/08/18 07:10 Urine Protein NEGATIVE mg/dL (NEGATIVE) 12/08/18 07:10 Urine Glucose (UA) NEGATIVE mg/dL (NEGATIVE) 12/08/18 07:10 Urine Ketones NEGATIVE mg/dL (NEGATIVE) 12/08/18 07:10 Urine Blood NEGATIVE (NEGATIVE) 12/08/18 07:10 Urine Nitrite NEGATIVE (NEGATIVE) 12/08/18 07:10 Ur Leukocyte Esterase NEGATIVE (NEGATIVE) 12/08/18 07:10 Urine WBC (Auto) 0 /HPF 12/08/18 07:10 Chest X-Ray 12/08/18 03:43 IMPRESSION: No significant change compared to the prior exam. Grossly stable bibasilar interstitial opacities. copyright 2010 [employer]- All Rights Reserved - Vital Signs Vital signs: Temp Pulse Resp BP Pulse Ox 98.1 F 71 11 L 143/101 H 99 12/08/18 03:27 12/08/18 03:27 12/08/18 07:01 12/08/18 07:01 12/08/18 07:01 - Laboratory Result Diagrams: 12/08/18 04:32 12/08/18 04:32 Laboratory results interpreted by me: 12/08/18 12/08/18 04:32 04:32 RBC 2.87 L Hgb 9.8 L Hct 28.5 L MCV 99 H MCH 34.0 H RDW 21.7 H Monocytes % (Manual) 16 H Retic Count (auto) 11.68 H Absolute Retic 0.335 H Total Bilirubin 1.8 H - Diagnostic Test Radiology reviewed: Image reviewed, Reports reviewed Discharge - Discharge Clinical Impression: Sickle cell disease with crisis Condition: Stable Disposition: HOME, SELF-CARE Instructions: Intravenous (IV) Fluids ([facility]), Pain Medication Injection ([facility]), Sickle Cell Crisis ([facility]) Additional Instructions: *You have been evaluated for pain with history of sickle cell *Take your pain medication as prescribed *Follow up with Dr Garcia this week *Return to ED for worsening condition, changes, needs Referrals: BETH MEDELLIN MD [Primary Care Provider] - Follow up in 3-5 days
[2018-12-08] MEDS ORDERED: DIPHENHYDRAMINE HCL 50 MG/ML VIAL IV ONE ×2 (04:10→05:55)
--- NOTE | 2018-12-08 04:29 | RADIOLOGY REPORT (SQ) ---
EXAM DESCRIPTION: XR CHEST 2 VIEWS COMPLETED DATE/TME: 12/08/2018 03:43 CLINICAL HISTORY: 37 years, Male, sob COMPARISON: 11/28/2017 NUMBER OF VIEWS: Two TECHNIQUE: Two views of the chest LIMITATIONS: None. FINDINGS: Grossly stable bibasilar interstitial opacities. The heart is enlarged. There is no pneumothorax or pleural effusion. The left chest wall port terminates within the SVC. The bones are unchanged. IMPRESSION: No significant change compared to the prior exam. Grossly stable bibasilar interstitial opacities. copyright 2010 [employer]- All Rights Reserved
[2018-12-08 05:05] LABS: ABSOLUTE RETICS # 0.335 10^6/uL (0.028-0.122); HEMATOCRIT 28.5 % (37.9-51.0); HEMOGLOBIN 9.8 g/dL (13.5-17.0); MEAN CORPUSCULAR HGB CONC 34.2 g/dL (32.0-36.0); MEAN CORPUSCULAR VOLUME 99 fl (80-97); PLATELET COUNT 210 10^3/uL (150-450); RED BLOOD COUNT 2.87 10^6/uL (4.35-5.55); RED CELL DISTRIBUTION WIDTH 21.7 % (11.5-14.0); RETICULOCYTE COUNT (AUTO) 11.68 % (0.66-2.85); WHITE BLOOD COUNT 5.3 10^3/uL (4.0-10.5)
[2018-12-08 05:22] LABS: ALBUMIN 4.2 g/dL (3.5-5.0); ALKALINE PHOSPHATASE 69 U/L (38-126); ANION GAP 8 (5-19); ASPARTATE AMINO TRANSFERASE 35 U/L (17-59); BILIRUBIN,DIRECT 0.4 mg/dL (0.0-0.4); BILIRUBIN,TOTAL 1.8 mg/dL (0.2-1.3); BLOOD UREA NITROGEN 9 mg/dL (7-20); CALCIUM 8.5 mg/dL (8.4-10.2); CARBON DIOXIDE 25 mmol/L (22-30); CHLORIDE 107 mmol/L (98-107); GLUCOSE 90 mg/dL (75-110); POTASSIUM 3.8 mmol/L (3.6-5.0); TOTAL PROTEIN 7.7 g/dL (6.3-8.2)
[2018-12-08 05:55] LABS: ABSOLUTE LYMPHOCYTES# (MANUAL) 1.5 10^3/uL (0.5-4.7); ABSOLUTE MONOCYTES # (MANUAL) 0.8 10^3/uL (0.1-1.4); ANISOCYTOSIS 3+; BASOPHILS % (MANUAL) 0 % (0-2); EOSINOPHILS % (MANUAL) 4 % (0-6); LYMPHOCYTES % (MANUAL) 28 % (13-45); MONOCYTES % (MANUAL) 16 % (3-13); POIKILOCYTOSIS 2+; SEGMENTED NEUTROPHILS % (MAN) 52 % (42-78); TOTAL CELLS COUNTED 100
[2018-12-08 05:56] LABS: PLATELET COMMENT ADEQUATE; SICKLE RED CELLS 1+
[2018-12-08 07:39] LABS: APPEARANCE,URINE CLEAR; BILIRUBIN,URINE NEGATIVE (NEGATIVE); COLOR,URINE YELLOW; GLUCOSE, URINE NEGATIVE (NEGATIVE); KETONES,URINE NEGATIVE (NEGATIVE); LEUKOCYTE ESTERASE,URINE NEGATIVE (NEGATIVE); NITRITE,URINE NEGATIVE (NEGATIVE); PROTEIN,URINE NEGATIVE (NEGATIVE); URINE SPECIFIC GRAVITY 1.008; UROBILINOGEN,URINE NEGATIVE mg/dL (<2.0)
[2018-12-08 08:14] VITALS: BP 142/97
== END 2018-12-08 08:15 | disposition home or self-care (01) ==
LOC: ER 03:15
DX: D57.00 Hb-SS disease with crisis, unspecified (principal); N48.30 Priapism, unspecified; R10.9 Unspecified abdominal pain; R06.02 Shortness of breath; R09.89 Other specified symptoms and signs involving the circulatory and respiratory systems; Z79.899 Other long term (current) drug therapy
CPT/HCPCS: 96376; 99284; 96361; 96374; 96375; 36415; 85025; 85045; 80053; 81001; 71046; J1200; J1170; J7030

== ENCOUNTER 2018-12-09 10:16 | Outpatient (CLI) | payer MEDICARE, MEDICAID ==
[~2018-12-09 10:16] MED LIST changes: +NORMAL SALINE 1000 ML 1,000 ML IV PRN; -NORMAL SALINE 1000 ML @ AS DIRECTED IV PRN
[2018-12-09 10:35] VITALS: BP 137/77
== END 2018-12-09 11:56 | disposition home or self-care (01) ==
LOC: 5TH 10:16 → II 10:16
PROVIDERS: ATTEND Internal Medicine
PROC: 3E0437Z Introduction of Electrolytic and Water Balance Substance into Central Vein, Percutaneous Approach (ICD-10-PCS; principal; 2018-12-09)
PROC: 3E043GC Introduction of Other Therapeutic Substance into Central Vein, Percutaneous Approach (ICD-10-PCS; 2018-12-09)
DX: D57.1 Sickle-cell disease without crisis (principal); R52 Pain, unspecified; E86.0 Dehydration
CPT/HCPCS: 96365; 96375; 96360; J1200; J1170; J1642; 96361

== ENCOUNTER 2018-12-10 10:23 | Outpatient (CLI) | payer MEDICARE, MEDICAID ==
[2018-12-10] MEDS ORDERED: NORMAL SALINE 1000 ML 1,000 ML IV PRN (10:40)
[2018-12-10] MEDS ORDERED: DIPHENHYDRAMINE HCL 25 MG in NORMAL SALINE 50 ML IV PRN (10:40)
[2018-12-10] MEDS ORDERED: HYDROMORPHONE HCL INJ/PF 2 MG/ML AMPULE IV PRN (10:41)
[2018-12-10 10:47] VITALS: BP 127/80
== END 2018-12-10 12:15 | disposition home or self-care (01) ==
LOC: II 10:23 → 5TH 10:25 → II 12:15
PROVIDERS: ATTEND Internal Medicine
PROC: 3E0437Z Introduction of Electrolytic and Water Balance Substance into Central Vein, Percutaneous Approach (ICD-10-PCS; principal; 2018-12-10)
PROC: 3E043GC Introduction of Other Therapeutic Substance into Central Vein, Percutaneous Approach (ICD-10-PCS; 2018-12-10)
DX: D57.1 Sickle-cell disease without crisis (principal); E86.0 Dehydration; R52 Pain, unspecified
CPT/HCPCS: 96365; 96375; 96361; J1200; J1170; J1642

== ENCOUNTER 2018-12-11 10:50 | Outpatient (CLI) | payer MEDICARE, MEDICAID ==
[~2018-12-11 10:50] MED LIST changes: -HYDROMORPHONE HCL INJ/PF 2 MG/ML AMPULE IV PRN; -NORMAL SALINE 1000 ML 1,000 ML IV PRN
[2018-12-11] MEDS ORDERED: NORMAL SALINE 1000 ML 1,000 ML IV PRN (10:52)
[2018-12-11] MEDS ORDERED: HYDROMORPHONE HCL INJ/PF 2 MG/ML AMPULE IV PRN (10:53)
[2018-12-11 11:11] VITALS: BP 110/73
== END 2018-12-11 12:31 | disposition home or self-care (01) ==
LOC: II 10:50 → 5TH 10:51 → II 12:31
PROVIDERS: ATTEND Internal Medicine
PROC: 3E043GC Introduction of Other Therapeutic Substance into Central Vein, Percutaneous Approach (ICD-10-PCS; principal; 2018-12-11)
PROC: 3E0437Z Introduction of Electrolytic and Water Balance Substance into Central Vein, Percutaneous Approach (ICD-10-PCS; 2018-12-11)
DX: D57.1 Sickle-cell disease without crisis (principal); E86.0 Dehydration; R52 Pain, unspecified
CPT/HCPCS: 96365; 96367; 96361; J1200; J1170; J1642; 96375

== ENCOUNTER 2018-12-15 10:02 | Outpatient (CLI) | payer MEDICARE, MEDICAID ==
[2018-12-15] MEDS ORDERED: DIPHENHYDRAMINE HCL 25 MG in NORMAL SALINE 50 ML IV PRN (14:19)
[2018-12-15] MEDS ORDERED: HYDROMORPHONE HCL INJ/PF 2 MG/ML AMPULE ONE (14:20)
[2018-12-15] MEDS ORDERED: NORMAL SALINE 1000 ML 1,000 ML IV PRN (14:20)
[2018-12-15] MEDS ORDERED: DIPHENHYDRAMINE HCL 50 MG/ML VIAL ONE (14:20)
[2018-12-15] MEDS ORDERED: HYDROMORPHONE HCL INJ/PF 2 MG/ML AMPULE IV PRN (14:21)
[2018-12-15 14:57] VITALS: BP 118/78
== END 2018-12-15 16:34 | disposition home or self-care (01) ==
LOC: II 10:02 → 2S 13:59 → II 16:34
PROVIDERS: ATTEND Internal Medicine
PROC: 3E0337Z Introduction of Electrolytic and Water Balance Substance into Peripheral Vein, Percutaneous Approach (ICD-10-PCS; principal; 2018-12-15)
PROC: 3E033GC Introduction of Other Therapeutic Substance into Peripheral Vein, Percutaneous Approach (ICD-10-PCS; 2018-12-15)
DX: D57.1 Sickle-cell disease without crisis (principal); E86.0 Dehydration; R52 Pain, unspecified
CPT/HCPCS: J1200; J1170; J7030; J1642; 96361; 96365; 96375

== ENCOUNTER 2018-12-16 10:15 | Outpatient (CLI) | payer MEDICARE, MEDICAID ==
[~2018-12-16 10:15] MED LIST changes: +HYDROMORPHONE HCL INJ/PF 2 MG/ML AMPULE IV PRN; +NORMAL SALINE 1000 ML 1,000 ML IV PRN
[2018-12-16 10:53] VITALS: BP 117/68
== END 2018-12-16 12:34 | disposition home or self-care (01) ==
LOC: 5TH 10:15 → II 10:15
PROVIDERS: ATTEND Internal Medicine
PROC: 3E0337Z Introduction of Electrolytic and Water Balance Substance into Peripheral Vein, Percutaneous Approach (ICD-10-PCS; principal; 2018-12-16)
PROC: 3E033GC Introduction of Other Therapeutic Substance into Peripheral Vein, Percutaneous Approach (ICD-10-PCS; 2018-12-16)
DX: D57.1 Sickle-cell disease without crisis (principal); E86.0 Dehydration; R52 Pain, unspecified
CPT/HCPCS: 96365; 96375; 96361; J1200; J1170; J1642

== ENCOUNTER 2018-12-17 09:33 | Outpatient (CLI) | payer MEDICARE, MEDICAID ==
[~2018-12-17 09:33] MED LIST changes: +DIPHENHYDRAMINE 50 MG in NS 50 ML IV PRN
[2018-12-17 09:44] VITALS: BP 114/71
== END 2018-12-17 11:12 | disposition home or self-care (01) ==
LOC: II 09:33 → 5TH 09:36 → II 11:12
PROVIDERS: ATTEND Internal Medicine
PROC: 3E0437Z Introduction of Electrolytic and Water Balance Substance into Central Vein, Percutaneous Approach (ICD-10-PCS; principal; 2018-12-17)
PROC: 3E043GC Introduction of Other Therapeutic Substance into Central Vein, Percutaneous Approach (ICD-10-PCS; 2018-12-17)
DX: D57.1 Sickle-cell disease without crisis (principal); E86.0 Dehydration; R52 Pain, unspecified
CPT/HCPCS: 96365; 96375; 96361; J1200; J1170; J1642

== ENCOUNTER 2018-12-18 14:19 | Outpatient (CLI) | payer MEDICARE, MEDICAID ==
[~2018-12-18 14:19] MED LIST changes: -DIPHENHYDRAMINE 50 MG in NS 50 ML IV PRN; +DIPHENHYDRAMINE HCL 50 MG in NORMAL SALINE 50 ML IV PRN
[2018-12-18 15:09] VITALS: BP 117/71
== END 2018-12-18 16:08 | disposition home or self-care (01) ==
LOC: II 14:19 → 5TH 14:21 → II 16:08
PROVIDERS: ATTEND Internal Medicine
PROC: 3E0437Z Introduction of Electrolytic and Water Balance Substance into Central Vein, Percutaneous Approach (ICD-10-PCS; principal; 2018-12-18)
PROC: 3E043GC Introduction of Other Therapeutic Substance into Central Vein, Percutaneous Approach (ICD-10-PCS; 2018-12-18)
DX: D57.1 Sickle-cell disease without crisis (principal); E86.0 Dehydration; R52 Pain, unspecified
CPT/HCPCS: 96365; 96375; 96361; J1200; J1170; J1642

== ENCOUNTER 2018-12-20 09:52 | Inpatient (IN) | payer MEDICARE, MEDICAID ==
[2018-12-20] MEDS ORDERED: HYDROMORPHONE HCL INJ/PF 2 MG/ML AMPULE IV ONE ×4 (10:12→15:11)
[2018-12-20] MEDS ORDERED: DIPHENHYDRAMINE HCL 50 MG/ML VIAL IV ONE ×2 (10:13→13:19)
--- NOTE | 2018-12-20 10:16 | RADIOLOGY REPORT (SQ) ---
EXAM DESCRIPTION: CHEST SINGLE VIEW COMPLETED DATE/TIME: 12/20/2018 10:04 am REASON FOR STUDY: SOB COMPARISON: 12/08/2018. FINDINGS: Single-view chest AP portable upright. Slightly lower lung volumes with suggestion of slight worsening of opacities in the lung bases. Pred ominantly interstitial, now with mild confluence particularly on the right. No pneumothorax. Mild v ascular congestion. Stable cardiomediastinal silhouette. Port remains in place. TECHNICAL DOCUMENTATION: JOB ID: [id number] Reading location - IP/workstation name: [email or web address]
--- NOTE | 2018-12-20 10:20 | ER Document Report ---
ED General - General Chief Complaint: Sickle Cell Crisis Stated Complaint: DIFFICULTY BREATHING Time Seen by Provider: 12/20/18 10:01 Primary Care Provider: BETH STAPLETON MD [Primary Care Provider] - Follow up as needed Notes: Patient is a 38-year-old male well-known with sickle cell disease who presents to this emergency department with a chief complaint of shortness of breath and pain to his hip joints, ribs, and all his bones. He states that his chest pain is upper substernal. He states his symptoms started at 3:00 this morning and he took his oxycodone which he normally takes for his sickle cell pain, but had little relief. 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 He states that he was normal yesterday and did not have any pain. He denies any fever or chills. Denies any cough, dysuria, or abdominal pain. TRAVEL OUTSIDE OF THE [place] IN LAST 30 DAYS: No - Related Data Allergies/Adverse Reactions: famotidine [From Pepcid] Allergy (Severe, Verified 11/28/18 16:30) Anaphylaxis ketorolac tromethamine [From Toradol] Allergy (Severe, Verified 11/28/18 16:30) levofloxacin [From Levaquin] Allergy (Severe, Verified 11/28/18 16:30) meperidine HCl [From Demerol] Allergy (Severe, Verified 11/28/18 16:30) morphine [Morphine] Allergy (Severe, Verified 11/28/18 16:30) tramadol HCl [From Ultram] Allergy (Severe, Verified 11/28/18 16:30) amoxicillin [Amoxicillin] Allergy (Verified 11/28/18 16:30) fentanyl [Fentanyl] Allergy (Verified 11/28/18 16:30) latex [Latex] Allergy (Verified 11/28/18 16:30) ondansetron HCl [From Zofran] Allergy (Verified 11/28/18 16:30) Pork/Porcine Containing Products Allergy (Verified 11/28/18 16:30) Past Medical History - Social History Smoking Status: Unknown if Ever Smoked Family History: Reviewed & Not Pertinent, Hypertension Patient has suicidal ideation: No Patient has homicidal ideation: No - Past Medical History Cardiac Medical History: Denies: Hx Atrial Fibrillation, Hx Congestive Heart Failure, Hx Coronary Artery Disease Pulmonary Medical History: Reports: Hx Pneumonia Denies: Hx Asthma, Hx Bronchitis, Hx COPD, Hx Tuberculosis Neurological Medical History: Reports: Hx Seizures. Denies: Hx Migraine Endocrine Medical History: Denies: Hx Diabetes Mellitus Type 1, Hx Diabetes Mellitus Type 2 Renal/ Medical History: Denies: Hx Peritoneal Dialysis GI Medical History: Denies: Hx Cirrhosis, Hx Hepatitis Musculoskeletal Medical History: Denies Hx Arthritis, Denies Hx Gout, Reports Hx Musculoskeletal Deformity - right hip avascular necrosis Skin Medical History: Denies Hx Eczema, Denies Hx Psoriasis Psychiatric Medical History: Reports: Hx Depression Infectious Medical History: Denies: Hx Hepatitis Past Surgical History: Reports: Hx Appendectomy, Hx Vascular Surgery - L port placement, Other - Port placement - Immunizations Immunizations up to date: Yes Hx Diphtheria, Pertussis, Tetanus Vaccination: Yes Hx Pneumococcal Vaccination: 02/20/11 Review of Systems - Review of Systems Notes: REVIEW OF SYSTEMS: CONSTITUTIONAL : Denies recent illness. Denies recent unintentional weight loss. Denies fever, chills, or sweats. EENT: Denies eye, ear, throat, or mouth pain, discharge, or symptoms. Denies nasal or sinus congestion. CARDIOVASCULAR: See HPI. RESPIRATORY: See HPI. GASTROINTESTINAL: Denies nausea, vomiting, and diarrhea. Denies abdominal pain. Denies constipation. GENITOURINARY: Denies difficulty urinating, burning, blood in urine, urgency or frequency. MUSCULOSKELETAL: See HPI. SKIN: Denies rash, itchiness, or lesions HEMATOLOGIC : Denies easy bruising or bleeding. LYMPHATIC: Denies swollen, painful, enlarged glands. NEUROLOGICAL: Denies no numbness or tingling denies weakness. Denies headache. Denies altered mental status. Denies alteration in speech. PSYCHIATRIC: Denies stress, anxiety, alteration in sleep patterns, or depr ession. All other systems reviewed and negative. Physical Exam - Vital signs Vitals: Temp Pulse Resp BP Pulse Ox 98.2 F 79 16 147/97 H 100 12/20/18 09:57 12/20/18 09:57 12/20/18 09:57 12/20/18 09:57 12/20/18 09:57 - Notes Notes: PHYSICAL EXAMINATION: GENERAL: Appears well, healthy, well-nourished, no acute distress. HEAD: Normocephalic, atraumatic. EYES: PERRL, conjunctiva normal, all extraocular movements intact, sclera nonicteric ENT: Moist mucous membranes. NECK: Supple, no noticeable swelling, redness, rash. Normal range of motion. LUNGS: Equal breath sounds bilaterally and clear to auscultation. No wheezes rales or rhonchi. CARDIOVASCULAR: S1-S2, regular rate, regular rhythm. Radial pulses 2+, normal. Tenderness upon palpation to mid sternum. ABDOMEN: Normoactive bowel sounds. Soft, nontender, no guarding, no rebound tenderness, and no masses palpated. EXTREMITIES: Normal strength and range of motion, no pitting or edema. No cyanosis. NEUROLOGICAL: Moves all extremities upon command. Strength 5/5 in all extremities. PSYCH: Normal mood, normal affect. SKIN: Warm, dry. No rash, lesions, ulcerations noted. Normal skin turgor. Course - Re-evaluation Re-evalutation: 12/20/18 10:22 Patient states that his normal dose of Dilaudid is 3 mg and 25 mg of Benadryl IV. Will reassess patient. Patient's EKG shows sinus rhythm. 12/20/18 11:36 Patient's labs show a hemoglobin of 9.6 with a hematocrit of 27.8, which is the patient's normal the patient is chronically anemic. His reticulocyte count is 9.93 with a absolute reticulocyte count of 0.29. Patient states that he is still in pain. His total bilirubin is 2.1. I asked him what kind of food he has been eating and he states that he has been eating a lot of fast food lately. He also has pain in his upper abdomen. He will be sent for a right upper quadrant ultrasound and lipase will be added. 12/20/18 13:20 Patient states that he continues to have pain. Right upper quadrant ultrasound shows that he has cholelithiasis, but no Bertha cystitis. I explained to the patient that eating fatty foods can exacerbate his symptoms. I gave him food recommendations. I also told him that this is his last dose of pain medication, and if his pain is not controlled, he will need to be admitted. 12/20/18 14:[address] Durant, who is on for oncology today. I will agrees to admission to the hospital for sickle cell pain management. Will call the hospitalist for admission. 12/20/18 14:[address] Busby and the patient will be admitted to the floor. - Vital Signs Vital signs: Temp Pulse Resp BP Pulse Ox 98 F 79 15 149/90 H 100 12/20/18 13:39 12/20/18 09:57 12/20/18 14:01 12/20/18 14:01 12/20/18 14:01 - Laboratory Result Diagrams: 12/20/18 10:16 12/20/18 10:16 Laboratory results interpreted by me: 12/20/18 12/20/18 10:16 10:16 RBC 2.94 L Hgb 9.6 L Hct 27.8 L RDW 22.2 H Plt Count 505 H [place] % (Auto) 14.5 H Reticulocyte # 0.292 H Retic Count (auto) 9.93 H Glucose 124 H Total Bilirubin 2.1 H - EKG Interpretation by Me Additional EKG results interpreted by me: 12/20/18 10:25 Sinus rhythm. Rate 74. LA 172; QRS 98; QTc 404; QTc 449. No ST elevations or depressions noted. Discharge - Discharge Clinical Impression: Sickle cell crisis Sickle cell anemia Qualifiers: Sickle-cell associated disorders: with unspecified crisis Qualified Code(s): D57.00 - Hb-SS disease with crisis, unspecified Joint pain Qualifiers: Joint pain location: unspecified Qualified Code(s): M25.50 - Pain in unspecified joint Condition: Stable Disposition: ADMITTED INPATIENT Admitting Provider: Mitch (Hospitalist) Unit Admitted: Medical Floor Referrals: BETH STAPLETON MD [Primary Care Provider] - Follow up as needed
[2018-12-20 10:38] LABS: ABSOLUTE BASOPHILS # (AUTO) 0.1 10^3/uL (0.0-0.2); ABSOLUTE EOSINOPHILS # (AUTO) 0.1 10^3/uL (0.0-0.6); ABSOLUTE LYMPHOCYTES (AUTO) 2.5 10^3/uL (0.5-4.7); ABSOLUTE MONOCYTES (AUTO) 1.2 10^3/uL (0.1-1.4); ABSOLUTE NEUT (AUTO) 4.3 10^3/uL (1.7-8.2); ABSOLUTE RETICS # 0.292 10^6/uL (0.028-0.122); BASOPHILS % (AUTO) 1.3 % (0-2); EOSINOPHILS % (AUTO) 1.3 % (0-6); HEMATOCRIT 27.8 % (37.9-51.0); HEMOGLOBIN 9.6 g/dL (13.5-17.0); LYMPHOCYTES % (AUTO) 30.7 % (13-45); MEAN CORPUSCULAR HEMOGLOBIN 32.6 pg (27.0-33.4); MEAN CORPUSCULAR HGB CONC 34.4 g/dL (32.0-36.0); MONOCYTES % (AUTO) 14.5 % (3-13); PLATELET COUNT 505 10^3/uL (150-450); RED BLOOD COUNT 2.94 10^6/uL (4.35-5.55); RED CELL DISTRIBUTION WIDTH 22.2 % (11.5-14.0); RETICULOCYTE COUNT (AUTO) 9.93 % (0.66-2.85); SEGMENTED NEUTROPHILS % (AUTO) 52.2 % (42-78); TOTAL CELLS COUNTED % (AUTO) 100 %; WHITE BLOOD COUNT 8.2 10^3/uL (4.0-10.5)
[2018-12-20 11:02] LABS: MEAN CORPUSCULAR VOLUME 95 fl (80-97)
[2018-12-20 11:04] LABS: ANISOCYTOSIS 3+; OVALOCYTES SLIGHT; POIKILOCYTOSIS 2+; POLYCHROMASIA 2+; SICKLE RED CELLS 1+; TARGET CELLS 1+
[2018-12-20 11:05] LABS: PLATELET COMMENT ADEQUATE; PLATELET GIANT PRESENT
[2018-12-20 11:06] LABS: ALBUMIN 4.4 g/dL (3.5-5.0); ALKALINE PHOSPHATASE 95 U/L (38-126); ANION GAP 12 (5-19); ASPARTATE AMINO TRANSFERASE 49 U/L (17-59); BILIRUBIN,DIRECT 0.2 mg/dL (0.0-0.4); BILIRUBIN,TOTAL 2.1 mg/dL (0.2-1.3); BLOOD UREA NITROGEN 11 mg/dL (7-20); CALCIUM 8.9 mg/dL (8.4-10.2); CARBON DIOXIDE 25 mmol/L (22-30); CHLORIDE 103 mmol/L (98-107); GLUCOSE 124 mg/dL (75-110); TOTAL PROTEIN 8.2 g/dL (6.3-8.2)
--- NOTE | 2018-12-20 12:38 | RADIOLOGY REPORT (SQ) ---
EXAM DESCRIPTION: U/S ABDOMEN LIMITED W/O DOP COMPLETED DATE/TIME: 12/20/2018 12:19 pm REASON FOR STUDY: chest pain; RUQ pain COMPARISON: 07/06/2018 TECHNIQUE: Dynamic and static grayscale images acquired of the abdomen and recorded on PACS. [place] selected color Doppler and spectral images recorded. LIMITATIONS: None. FINDINGS: PANCREAS: No masses. Visualized pancreatic duct normal caliber. LIVER: No masses. Echotexture normal. LIVER VASCULATURE: Normal directional flow of the main portal vein and hepatic veins. GALLBLADDER: Echogenic sizable 1.5 cm stone. No wall thickening or pericholecystic fluid. ULTRASOUND-DETECTED NICHOLS'S SIGN: Negative. INTRAHEPATIC DUCTS AND COMMON DUCT: CBD and intrahepatic ducts normal caliber. No filling defects. INFERIOR VENA CAVA: Normal flow. AORTA: No aneurysm. RIGHT KIDNEY: Normal size. Normal echogenicity. No solid or suspicious masses. No hydronephrosis. No calcifications. PERITONEAL AND RIGHT PLEURAL SPACE: No ascites or effusions. OTHER: No other significant findings. IMPRESSION: Cholelithiasis. No ultrasound evidence of acute cholecystitis. TECHNICAL DOCUMENTATION: JOB ID: [id number] [email or web address] All Rights Reserved Reading location - IP/workstation name: [email or web address]
[2018-12-20] MEDS ORDERED: NORMAL SALINE 1000 ML 1,000 ML IV ONE ×2 (13:54→14:35)
--- NOTE | 2018-12-20 14:39 | EKG REPORT ---
SEVERITY:- BORDERLINE ECG - SINUS RHYTHM BORDERLINE T WAVE ABNORMALITIES : Confirmed by: Emre Montoya MD 20-Dec-2018 14:38:24
[2018-12-20] MEDS ORDERED: ZOLPIDEM TARTRATE 5 MG TABLET PO PRN (15:09)
--- NOTE | 2018-12-20 15:09 | PDOC H&P ---
History of Present Illness Admission Date/PCP: BETH STAPLETON MD History of Present Illness: MARISA GARBER is a 38 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 Despite taking his oxycodone patient continued to have the above-mentioned pain. He denies any fever, cough, chills, palpitation or diaphoresis. He does not have any headache dizziness or blurry vision. Patient was given 3 rounds of 2 mg of IV Dilaudid to no avail. His blood works are unremarkable except anemia of hemoglobin at 9.6 and increased reticulocyte count. There attending requests right upper quadrant ultrasound and it is positive for cholelithiasis without cholecystitis. Of note the patient has multiple admission for the same problem. Past Medical History Cardiac Medical History: Denies: Atrial Fibrillation, Congestive Heart Failure, Coronary Artery Disease Pulmonary Medical History: Reports: Pneumonia Denies: Asthma, Bronchitis, Chronic Obstructive Pulmonary Disease (COPD), Tuberculosis Neurological Medical History: Reports: Seizures Denies: Migraine Endocrine Medical History: Denies: Diabetes Mellitus Type 1, Diabetes Mellitus Type 2 GI Medical History: Denies: Cirrhosis, Hepatitis Musculoskeltal Medical History: Denies: Arthritis, Gout Skin Medical History: Denies: Eczema, Psoriasis Psychiatric Medical History: Reports: Depression Hematology: Reports: Anemia, Sickle Cell Disease Denies: Hemophilia, Bleeding Tendencies Past Surgical History Past Surgical History: Reports: Appendectomy, Vascular Surgery - L port placement, Other - Port placement Social History Smoking Status: Unknown if Ever Smoked Frequency of Alcohol Use: None Hx Recreational Drug Use: No Drugs: None Hx Prescription Drug Abuse: No - Advance Directive Resuscitation Status: Full Code Family History Family History: Reviewed & Not Pertinent, Hypertension Parental Family History Reviewed: Yes Children Family History Reviewed: Yes Sibling(s) Family History Reviewed.: Yes Medication/Allergy Home Medications: Hydroxyurea 1,500 mg PO MOWEFR 12/02/18 Methadone HCl 5 mg PO BID 12/08/18 Oxycodone HCl [Oxycodone HCl 10 MG Tablet] 10 mg PO TID 12/08/18 Allergies/Adverse Reactions: famotidine [From Pepcid] Allergy (Severe, Verified 11/28/18 16:30) Anaphylaxis ketorolac tromethamine [From Toradol] Allergy (Severe, Verified 11/28/18 16:30) levofloxacin [From Levaquin] Allergy (Severe, Verified 11/28/18 16:30) meperidine HCl [From Demerol] Allergy (Severe, Verified 11/28/18 16:30) morphine [Morphine] Allergy (Severe, Verified 11/28/18 16:30) tramadol HCl [From Ultram] Allergy (Severe, Verified 11/28/18 16:30) amoxicillin [Amoxicillin] Allergy (Verified 11/28/18 16:30) fentanyl [Fentanyl] Allergy (Verified 11/28/18 16:30) latex [Latex] Allergy (Verified 11/28/18 16:30) ondansetron HCl [From Zofran] Allergy (Verified 11/28/18 16:30) Pork/Porcine Containing Products Allergy (Verified 11/28/18 16:30) Review of Systems Constitutional: ABSENT: chills, fever(s), headache(s), weight gain, weight loss Eyes: ABSENT: visual disturbances Ears: ABSENT: hearing changes Cardiovascular: ABSENT: chest pain, dyspnea on exertion, edema, orthropnea, palpitations Respiratory: PRESENT: dyspnea Gastrointestinal: ABSENT: abdominal pain, constipation, diarrhea, hematemesis, hematochezia, nausea, vomiting Genitourinary: ABSENT: dysuria, hematuria Musculoskeletal: PRESENT: back pain Integumentary: ABSENT: rash, wounds Neurological: ABSENT: abnormal gait, abnormal speech, confusion, dizziness, focal weakness, syncope Psychiatric: ABSENT: anxiety, depression, homidical ideation, suicidal ideation Endocrine: ABSENT: cold intolerance, heat intolerance, polydipsia, polyuria Hematologic/Lymphatic: ABSENT: easy bleeding, easy bruising Physical Exam Vital Signs: Temp Pulse Resp BP Pulse Ox 98 F 79 15 149/90 H 100 12/20/18 13:39 12/20/18 09:57 12/20/18 14:01 12/20/18 14:01 12/20/18 14:01 Intake & Output 12/19/18 12/20/18 12/21/18 06:59 06:59 06:59 Weight 89 kg General appearance: PRESENT: no acute distress, well-developed, well-nourished Head exam: PRESENT: atraumatic, normocephalic Eye exam: PRESENT: conjunctiva pink, EOMI, PERRLA. ABSENT: scleral icterus Ear exam: PRESENT: normal external ear exam Mouth exam: PRESENT: moist, tongue midline Neck exam: ABSENT: carotid bruit, JVD, lymphadenopathy, thyromegaly Respiratory exam: PRESENT: clear to auscultation anastasiya. ABSENT: rales, rhonchi, wheezes Cardiovascular exam: PRESENT: RRR. ABSENT: diastolic murmur, rubs, systolic murmur Pulses: PRESENT: normal dorsalis pedis pul Vascular exam: PRESENT: normal capillary refill GI/Abdominal exam: PRESENT: normal bowel sounds, soft. ABSENT: distended, guarding, mass, organolmegaly, rebound, tenderness Rectal exam: PRESENT: deferred Extremities exam: PRESENT: full ROM. ABSENT: calf tenderness, clubbing, pedal edema Neurological exam: PRESENT: alert, awake, oriented to person, oriented to place, oriented to time, oriented to situation, CN II-XII grossly intact. ABSENT: motor sensory deficit Psychiatric exam: PRESENT: appropriate affect, normal mood. ABSENT: homicidal ideation, suicidal ideation Skin exam: PRESENT: dry, intact, warm. ABSENT: cyanosis, rash Results Laboratory Results: 12/20/18 10:16 12/20/18 10:16 12/20/18 12/20/18 12/20/18 10:16 10:16 10:16 WBC 8.2 RBC 2.94 L Hgb 9.6 L Hct 27.8 L MCV 95 D MCH 32.6 MCHC 34.4 RDW 22.2 H Plt Count 505 H Seg Neutrophils % 52.2 Retic Count (auto) 9.93 H Sodium 139.8 Potassium 4.0 Chloride 103 Carbon Dioxide 25 Anion Gap 12 BUN 11 Creatinine 0.70 Est GFR ( Amer) > 60 Glucose 124 H Calcium 8.9 Total Bilirubin 2.1 H AST 49 Alkaline Phosphatase 95 Total Protein 8.2 Albumin 4.4 Lipase 42.1 12/20/18 12/20/18 10:16 10:16 Troponin I < 0.012 NT-Pro-B Natriuret Pep 40 Impressions: Abdomen Ultrasound 12/20/18 11:29 IMPRESSION: Cholelithiasis. No ultrasound evidence of acute cholecystitis. Assessment and Plan - Diagnosis (1) Sickle cell anemia Qualifiers: Sickle-cell associated disorders: with unspecified crisis Qualified Code(s): D57.00 - Hb-SS disease with crisis, unspecified; D57.0 - Hb-SS disease with crisis Is this a current diagnosis for this admission?: Yes Plan: We will continue his home folic acid. (2) Sickle cell crisis Is this a current diagnosis for this admission?: Yes Plan: Patient is going to admitted to the floor and managed accordingly. We will hydrate him aggressively with normal saline at rate of 200 mL/h. Dilated to 2 mg IV every 4 hours and to continue his home maintenance pain medication. We will continue also his hydroxyurea. (3) Avascular necrosis of hip Qualifiers: Laterality: right Qualified Code(s): M87.051 - Idiopathic aseptic necrosis of right femur Is this a current diagnosis for this admission?: Yes Plan: Follow-up with orthopedics as outpatient. (4) Depression Is this a current diagnosis for this admission?: Yes Plan: Continue his home medication (5) Cholelithiasis Qualifiers: Biliary obstruction: without biliary obstruction Is this a current diagnosis for this admission?: Yes Plan: Diagnosed during this admission. - Inpatient Certification Medical Necessity: Need For IV Fluids, Other - Uncontrolled pain
[2018-12-20] MEDS ORDERED: HYDROMORPHONE HCL INJ/PF 2 MG/ML AMPULE IV PRN ×2 (15:15→15:25)
[2018-12-20] MEDS: NORMAL SALINE 1000 ML 1,000 ML IV PRN ×2 (17:08→21:15)
[2018-12-20] MEDS: HYDROMORPHONE HCL INJ/PF 2 MG/ML AMPULE IV PRN ×2 (19:51→23:14)
[2018-12-20] MEDS ORDERED: METHADONE HCL 1 MG/ML 30 ML BOTTLE PO SCH (22:00)
[2018-12-20] MEDS: OXYCODONE HCL SR 10 MG TABLET PO SCH (22:14)
[2018-12-20] MEDS: METHADONE HCL 10 MG TABLET PO SCH (22:15)
[2018-12-20 23:27] LABS: APPEARANCE,URINE CLEAR; BILIRUBIN,URINE NEGATIVE (NEGATIVE); COLOR,URINE YELLOW; GLUCOSE, URINE NEGATIVE (NEGATIVE); KETONES,URINE NEGATIVE (NEGATIVE); LEUKOCYTE ESTERASE,URINE NEGATIVE (NEGATIVE); NITRITE,URINE NEGATIVE (NEGATIVE); PROTEIN,URINE NEGATIVE (NEGATIVE)
[2018-12-21] MEDS: NORMAL SALINE 1000 ML 1,000 ML IV PRN ×5 (01:13→22:30)
[2018-12-21] MEDS: HYDROMORPHONE HCL INJ/PF 2 MG/ML AMPULE IV PRN ×8 (02:19→23:26)
[2018-12-21 06:11] LABS: HEMATOCRIT 26.4 % (37.9-51.0)
[2018-12-21 06:14] LABS: MEAN CORPUSCULAR HEMOGLOBIN 32.1 pg (27.0-33.4); MEAN CORPUSCULAR HGB CONC 34.2 g/dL (32.0-36.0); MEAN CORPUSCULAR VOLUME 94 fl (80-97); PLATELET COUNT 415 10^3/uL (150-450); RED BLOOD COUNT 2.81 10^6/uL (4.35-5.55); RED CELL DISTRIBUTION WIDTH 20.5 % (11.5-14.0); WHITE BLOOD COUNT 10.1 10^3/uL (4.0-10.5)
[2018-12-21 06:29] LABS: ANION GAP 9 (5-19); BLOOD UREA NITROGEN 8 mg/dL (7-20); CALCIUM 8.8 mg/dL (8.4-10.2); CARBON DIOXIDE 27 mmol/L (22-30); CHLORIDE 101 mmol/L (98-107); GLUCOSE 110 mg/dL (75-110); POTASSIUM 4.2 mmol/L (3.6-5.0)
[2018-12-21] MEDS: OXYCODONE HCL SR 10 MG TABLET PO SCH (09:44)
[2018-12-21] MEDS: METHADONE HCL 10 MG TABLET PO SCH ×2 (09:45→22:30)
[2018-12-21] MEDS: HYDROXYUREA 500 MG CAPSULE PO SCH (11:42)
--- NOTE | 2018-12-21 13:35 | PDOC PROGRESS REPORT ---
Subjective Progress Note for:: 12/21/18 Subjective:: No adverse events overnight. No new complaints. He was asleep whenever I came into the room and it took me a couple of minutes to get him to wake up. While he was talking to me his eyes were closed and his words were a bit muffled. When I woke him up he told me he needed more pain medicine. Reason For Visit: SICKLE CELL CRISIS Physical Exam Vital Signs: Temp Pulse Resp BP Pulse Ox 98.3 F 82 18 174/97 H 100 12/21/18 10:54 12/21/18 10:54 12/21/18 10:54 12/21/18 10:54 12/21/18 10:54 Intake & Output 12/20/18 12/21/18 12/22/18 06:59 06:59 06:59 Intake Total 4512 1000 Output Total 4250 Balance 262 1000 Weight 86.3 kg General appearance: PRESENT: no acute distress, cooperative, hard of hearing Respiratory exam: PRESENT: clear to auscultation anastasiya, symmetrical, unlabored. ABSENT: accessory muscle use, chest wall tenderness, crackles, prolonged expiratory phas, rhonchi, tachypnea, wheezes Cardiovascular exam: PRESENT: RRR, +S1, +S2 Pulses: PRESENT: normal carotid pulses Vascular exam: PRESENT: normal capillary refill GI/Abdominal exam: PRESENT: normal bowel sounds, soft. ABSENT: distended, guarding, rebound, tenderness Extremities exam: ABSENT: clubbing, pedal edema Musculoskeletal exam: ABSENT: deformity, normal inspection Neurological exam: PRESENT: altered - Drowsy but arousable, oriented to person, oriented to place Psychiatric exam: PRESENT: flat affect Skin exam: PRESENT: dry, warm Results Laboratory Results: 12/21/18 05:40 12/21/18 05:40 12/20/18 12/21/18 12/21/18 23:00 05:40 05:40 WBC 10.1 RBC 2.81 L Hgb 9.0 L Hct 26.4 L MCV 94 MCH 32.1 MCHC 34.2 RDW 20.5 H Plt Count 415 Sodium 136.5 L Potassium 4.2 Chloride 101 Carbon Dioxide 27 Anion Gap 9 BUN 8 Creatinine 0.61 Est GFR ( Amer) > 60 Glucose 110 Calcium 8.8 Urine Color YELLOW Urine Appearance CLEAR Urine pH 7.0 Ur Specific [place] 1.010 Urine Protein NEGATIVE Urine Glucose (UA) NEGATIVE Urine Ketones NEGATIVE Urine Blood SMALL H Urine Nitrite NEGATIVE Ur Leukocyte Esterase NEGATIVE Urine WBC (Auto) 1 12/20/18 12/20/18 10:16 10:16 Troponin I < 0.012 NT-Pro-B Natriuret Pep 40 Impressions: Abdomen Ultrasound 12/20/18 11:29 IMPRESSION: Cholelithiasis. No ultrasound evidence of acute cholecystitis. Assessment and Plan - Diagnosis (1) Sickle cell anemia Qualifiers: Sickle-cell associated disorders: with unspecified crisis Qualified Code(s): D57.00 - Hb-SS disease with crisis, unspecified; D57.0 - Hb-SS disease with crisis Is this a current diagnosis for this admission?: Yes Plan: He is on IV fluids. Hematology is managing his pain medication. We will continue his other medications and supportive care. - Time Time Spent with patient: 15-24 minutes
[2018-12-22] MEDS: NORMAL SALINE 1000 ML 1,000 ML IV PRN ×6 (02:28→23:58)
[2018-12-22] MEDS: HYDROMORPHONE HCL INJ/PF 2 MG/ML AMPULE IV PRN ×8 (02:29→23:57)
--- NOTE | 2018-12-22 10:10 | PDOC CONSULTATION ---
Consultation Consult Date: 12/22/18 Provider Consulted: TONI BERRY Consult reason:: Hematology/ Oncology consulatation was requested for patient with sickle cell anemia. History of Present Illness Admission Date/PCP: 12/20/18 15:02 BETH STAPLETON MD History of Present Illness: MARISA GARBER is a 38 year old male with frequent hospital admissions for pain crisis. He presented with chest pain and states that he had pain all over. Yesterday, nurses reported that he was not able to hold a full conversation because he was too sleepy. They were very reluctant to increase his pain medica tion because of this. Today, he states that he has been treated as an animal and that the nurses are not giving him his regular pain medications. He denies any nausea, but states that he has not been able to eat anything. Past Medical History Cardiac Medical History: Denies: Atrial Fibrillation, Congestive Heart Failure, Coronary Artery Disease Pulmonary Medical History: Reports: Pneumonia Denies: Asthma, Bronchitis, Chronic Obstructive Pulmonary Disease (COPD), Tuberculosis Neurological Medical History: Reports: Seizures Denies: Migraine Endocrine Medical History: Denies: Diabetes Mellitus Type 1, Diabetes Mellitus Type 2 GI Medical History: Denies: Cirrhosis, Hepatitis Musculoskeltal Medical History: Denies: Arthritis, Gout Skin Medical History: Denies: Eczema, Psoriasis Psychiatric Medical History: Reports: Depression Hematology: Reports: Anemia, Sickle Cell Disease Denies: Hemophilia, Bleeding Tendencies Past Surgical History Past Surgical History: Reports: Appendectomy, Vascular Surgery - L port placement, Other - Port placement Social History Smoking Status: Unknown if Ever Smoked Frequency of Alcohol Use: None Hx Recreational Drug Use: No Drugs: None Hx Prescription Drug Abuse: No - Advance Directive Resuscitation Status: Full Code Family History Family History: Reviewed & Not Pertinent, Hypertension Parental Family History Reviewed: Yes Children Family History Reviewed: Yes Sibling(s) Family History Reviewed.: Yes Medication/Allergy Home Medications: Hydroxyurea [Hydrea 500 mg Capsule] 1,500 mg PO SUTUTH 12/21/18 Hydroxyurea [Hydrea 500 mg Capsule] 3,000 mg PO MOWEFR 12/21/18 Ibuprofen [Motrin 600 mg Tablet] 600 mg PO Q6HP PRN 12/21/18 Methadone HCl 5 mg PO Q6HP PRN 12/21/18 Oxycodone HCl [Oxycodone HCl 10 MG Tablet] 10 mg PO Q8 12/21/18 Allergies/Adverse Reactions: famotidine [From Pepcid] Allergy (Severe, Verified 11/28/18 16:30) Anaphylaxis ketorolac tromethamine [From Toradol] Allergy (Severe, Verified 11/28/18 16:30) levofloxacin [From Levaquin] Allergy (Severe, Verified 11/28/18 16:30) meperidine HCl [From Demerol] Allergy (Severe, Verified 11/28/18 16:30) morphine [Morphine] Allergy (Severe, Verified 11/28/18 16:30) tramadol HCl [From Ultram] Allergy (Severe, Verified 11/28/18 16:30) amoxicillin [Amoxicillin] Allergy (Verified 11/28/18 16:30) fentanyl [Fentanyl] Allergy (Verified 11/28/18 16:30) latex [Latex] Allergy (Verified 11/28/18 16:30) ondansetron HCl [From Zofran] Allergy (Verified 11/28/18 16:30) Pork/Porcine Containing Products Allergy (Verified 11/28/18 16:30) Review of Systems Constitutional: ABSENT: fever(s), headache(s) Eyes: ABSENT: visual disturbances Ears: ABSENT: hearing changes Nose, Mouth, and Throat: ABSENT: sore throat Cardiovascular: PRESENT: chest pain Respiratory: PRESENT: dyspnea Gastrointestinal: PRESENT: abdominal pain. ABSENT: constipation Genitourinary: ABSENT: difficulty urinating Musculoskeletal: PRESENT: back pain, other - Pain all over Neurological: PRESENT: other - Not able to walk due to pain. Hematologic/Lymphatic: ABSENT: easy bruising Physical Exam Vital Signs: Temp Pulse Resp BP Pulse Ox 98.1 F 89 14 156/81 H 98 12/22/18 08:00 12/22/18 08:00 12/22/18 08:00 12/22/18 08:00 12/22/18 08:00 Intake & Output 12/21/18 12/22/18 12/23/18 06:59 06:59 06:59 Intake Total 4512 5670 Output Total 4250 5650 Balance 262 20 Weight 86.3 kg 85 kg General appearance: PRESENT: well-developed, well-nourished Exam: 38 year old male. Patient mumbling and with circumferential speech. Keeps stating same things over and over. Does not fully answer my questions. Head exam: PRESENT: atraumatic, normocephalic Eye exam: PRESENT: EOMI Mouth exam: PRESENT: tongue midline Neck exam: ABSENT: lymphadenopathy, tenderness Respiratory exam: PRESENT: clear to auscultation anastasiya, unlabored Cardiovascular exam: PRESENT: RRR GI/Abdominal exam: PRESENT: soft, tenderness. ABSENT: organolmegaly Extremities exam: ABSENT: pedal edema Musculoskeletal exam: PRESENT: normal inspection, tenderness Neurological exam: PRESENT: awake, oriented to place. ABSENT: oriented to person, oriented to time Psychiatric exam: PRESENT: agitated Focused psych exam: PRESENT: other - circumfrential speech. Skin exam: PRESENT: normal color Results Laboratory Results: 12/21/18 05:40 12/21/18 05:40 12/20/18 12/20/18 10:16 10:16 Troponin I < 0.012 NT-Pro-B Natriuret Pep 40 Impressions: Abdomen Ultrasound 12/20/18 11:29 IMPRESSION: Cholelithiasis. No ultrasound evidence of acute cholecystitis. Assessment & Plan - Diagnosis (1) Sickle cell crisis Is this a current diagnosis for this admission?: Yes Plan: Patient has pain medications, phenergan, and benadryl ordered. However, he is complaining that these are not being given appropriately. His mental status is such that nurses do not feel it is safe to further sedate him. I agree. Continue fluids and Oxygen.
[2018-12-22] MEDS: METHADONE HCL 10 MG TABLET PO SCH ×2 (10:29→21:04)
[2018-12-22] MEDS: HYDROXYUREA 500 MG CAPSULE PO SCH (10:30)
[2018-12-22 11:17] LABS: URINE AMPHETAMINES SCREEN NEGATIVE; URINE BARBITURATES SCREEN NEGATIVE; URINE BENZODIAZEPINES SCREEN NEGATIVE; URINE COCAINE SCREEN NEGATIVE; URINE MARIJUANA (THC) SCREEN NEGATIVE; URINE PHENCYCLIDINE SCREEN NEGATIVE
[2018-12-22 12:06] LABS: URINE METHADONE SCREEN UNCONFIRMED POSITIVE
--- NOTE | 2018-12-22 15:21 | PDOC PROGRESS REPORT ---
Subjective Progress Note for:: 12/22/18 Subjective:: No adverse events overnight. When he wakes up, he complains of not having enough pain medication. Dr. Pena saw him this morning and decided not to increase his pain medication any further. He fell asleep while I was talking to him. Reason For Visit: SICKLE CELL CRISIS Physical Exam Vital Signs: Temp Pulse Resp BP Pulse Ox 98.9 F 87 16 158/90 H 98 12/22/18 14:46 12/22/18 14:46 12/22/18 14:46 12/22/18 14:46 12/22/18 14:46 Intake & Output 12/21/18 12/22/18 12/23/18 06:59 06:59 06:59 Intake Total 4512 5670 1050 Output Total 4250 5650 2500 Balance 262 20 -1450 Weight 86.3 kg 85 kg General appearance: PRESENT: no acute distress, cooperative, hard of hearing Respiratory exam: PRESENT: clear to auscultation anastasiya, symmetrical, unlabored. ABSENT: accessory muscle use, chest wall tenderness, crackles, prolonged expiratory phas, rhonchi, tachypnea, wheezes Cardiovascular exam: PRESENT: RRR, +S1, +S2 Pulses: PRESENT: normal carotid pulses Vascular exam: PRESENT: normal capillary refill GI/Abdominal exam: PRESENT: normal bowel sounds, soft. ABSENT: distended, guarding, rebound, tenderness Extremities exam: ABSENT: clubbing, pedal edema Musculoskeletal exam: ABSENT: deformity, normal inspection Neurological exam: PRESENT: altered - Drowsy but arousable, oriented to person, oriented to place Psychiatric exam: PRESENT: flat affect Skin exam: PRESENT: dry, warm Results Laboratory Results: 12/21/18 05:40 12/21/18 05:40 12/20/18 12/20/18 10:16 10:16 Troponin I < 0.012 NT-Pro-B Natriuret Pep 40 Impressions: Abdomen Ultrasound 12/20/18 11:29 IMPRESSION: Cholelithiasis. No ultrasound evidence of acute cholecystitis. Assessment and Plan - Diagnosis (1) Sickle cell anemia Qualifiers: Sickle-cell associated disorders: with unspecified crisis Qualified Code(s): D57.00 - Hb-SS disease with crisis, unspecified; D57.0 - Hb-SS disease with crisis Is this a current diagnosis for this admission?: Yes Plan: He is on IV fluids. Hematology is managing his pain medication. We will continue his other medications and supportive care. - Time Time Spent with patient: 15-24 minutes
[2018-12-23] MEDS ORDERED: CLONIDINE HCL 0.2 MG TABLET PO ONE (01:00)
[2018-12-23] MEDS: HYDROMORPHONE HCL INJ/PF 2 MG/ML AMPULE IV PRN ×8 (03:40→23:08)
[2018-12-23] MEDS: NORMAL SALINE 1000 ML 1,000 ML IV PRN ×4 (03:41→23:08)
[2018-12-23] MEDS ORDERED: BACLOFEN 10 MG TABLET PO PRN (08:22)
[2018-12-23] MEDS ORDERED: PSEUDOEPHEDRINE HCL 30 MG TABLET PO PRN ×3 (08:23→09:30)
[2018-12-23] MEDS ORDERED: IBUPROFEN 600 MG TABLET PO PRN (08:27)
[2018-12-23] MEDS ORDERED: (PENDING PHARMACY ID) (Methadone Hcl [Methadone Hcl] 5 MG) PO PRN (08:27)
--- NOTE | 2018-12-23 08:29 | PDOC PROGRESS REPORT ---
Subjective Progress Note for:: 12/23/18 Subjective:: Patient still with a lot of pain today, today I ordered all of his home medications appropriately and made his IV Dilaudid every 2 hours. He will need a few days in. Hemoglobin is stable, no need for transfusion currently. Reason For Visit: SICKLE CELL CRISIS Physical Exam Vital Signs: Temp Pulse Resp BP Pulse Ox 99.5 F 91 15 184/106 H 98 12/22/18 23:13 12/22/18 23:13 12/22/18 23:13 12/22/18 23:13 12/22/18 23:13 Intake & Output 12/22/18 12/23/18 12/24/18 06:59 06:59 06:59 Intake Total 5670 5085 Output Total 5650 5500 Balance 20 -415 Weight 85 kg 82.3 kg General appearance: PRESENT: no acute distress, well-developed, well-nourished Head exam: PRESENT: atraumatic, normocephalic Eye exam: PRESENT: conjunctiva pink, EOMI, PERRLA. ABSENT: scleral icterus Ear exam: PRESENT: normal external ear exam Mouth exam: PRESENT: moist, tongue midline Neck exam: ABSENT: carotid bruit, JVD, lymphadenopathy, thyromegaly Respiratory exam: PRESENT: clear to auscultation anastasiya. ABSENT: rales, rhonchi, wheezes Cardiovascular exam: PRESENT: RRR. ABSENT: diastolic murmur, rubs, systolic murmur Pulses: PRESENT: normal dorsalis pedis pul Vascular exam: PRESENT: normal capillary refill GI/Abdominal exam: PRESENT: normal bowel sounds, soft. ABSENT: distended, guarding, mass, organolmegaly, rebound, tenderness Rectal exam: PRESENT: deferred Extremities exam: PRESENT: full ROM. ABSENT: calf tenderness, clubbing, pedal edema Neurological exam: PRESENT: alert, awake, oriented to person, oriented to place, oriented to time, oriented to situation, CN II-XII grossly intact. ABSENT: motor sensory deficit Psychiatric exam: PRESENT: appropriate affect, normal mood. ABSENT: homicidal ideation, suicidal ideation Skin exam: PRESENT: dry, intact, warm. ABSENT: cyanosis, rash Results Laboratory Results: 12/21/18 05:40 12/21/18 05:40 12/20/18 12/20/18 10:16 10:16 Troponin I < 0.012 NT-Pro-B Natriuret Pep 40 Impressions: Abdomen Ultrasound 12/20/18 11:29 IMPRESSION: Cholelithiasis. No ultrasound evidence of acute cholecystitis. Assessment & Plan - Diagnosis (1) Sickle cell crisis Is this a current diagnosis for this admission?: Yes Plan: Sickle cell disease with pain crisis, continue with current IV Dilaudid I made it every 2 hours, continue with methadone, continue with other medications I added both baclofen and Sudafed for his priapism which comes about during crises sometimes, we added a bowel regimen this morning as well. 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
--- NOTE | 2018-12-23 08:37 | PDOC PROGRESS REPORT ---
Subjective Progress Note for:: 12/23/18 Subjective:: 12/23/2018-continued pain, not receive his home medications. Reason For Visit: SICKLE CELL CRISIS Physical Exam Vital Signs: Temp Pulse Resp BP Pulse Ox 99.5 F 93 16 142/94 H 100 12/23/18 08:08 12/23/18 08:08 12/23/18 08:08 12/23/18 08:08 12/23/18 08:08 Intake & Output 12/22/18 12/23/18 12/24/18 06:59 06:59 06:59 Intake Total 5670 5085 Output Total 5650 5500 Balance 20 -415 Weight 85 kg 82.3 kg General appearance: PRESENT: no acute distress, well-developed, well-nourished Head exam: PRESENT: atraumatic, normocephalic Eye exam: PRESENT: conjunctiva pink, EOMI, PERRLA. ABSENT: scleral icterus Ear exam: PRESENT: normal external ear exam Mouth exam: PRESENT: moist, tongue midline Neck exam: ABSENT: carotid bruit, JVD, lymphadenopathy, thyromegaly Respiratory exam: PRESENT: clear to auscultation anastasiya. ABSENT: rales, rhonchi, wheezes Cardiovascular exam: PRESENT: RRR. ABSENT: diastolic murmur, rubs, systolic murmur Pulses: PRESENT: normal dorsalis pedis pul Vascular exam: PRESENT: normal capillary refill GI/Abdominal exam: PRESENT: normal bowel sounds, soft. ABSENT: distended, guarding, mass, organolmegaly, rebound, tenderness Rectal exam: PRESENT: deferred Extremities exam: PRESENT: full ROM. ABSENT: calf tenderness, clubbing, pedal edema Neurological exam: PRESENT: alert, awake, oriented to person, oriented to place, oriented to time, oriented to situation, CN II-XII grossly intact. ABSENT: motor sensory deficit Psychiatric exam: PRESENT: appropriate affect, normal mood. ABSENT: homicidal ideation, suicidal ideation Skin exam: PRESENT: dry, intact, warm. ABSENT: cyanosis, rash Results Laboratory Results: 12/21/18 05:40 12/21/18 05:40 12/20/18 12/20/18 10:16 10:16 Troponin I < 0.012 NT-Pro-B Natriuret Pep 40 Impressions: Abdomen Ultrasound 12/20/18 11:29 IMPRESSION: Cholelithiasis. No ultrasound evidence of acute cholecystitis. Assessment and Plan - Diagnosis (1) Sickle cell crisis Is this a current diagnosis for this admission?: Yes Plan: Patient is going to admitted to the floor and managed accordingly. We will hydrate him aggressively with normal saline at rate of 200 mL/h. Dilated to 2 mg IV every 4 hours and to continue his home maintenance pain medication. We will continue also his hydroxyurea. 12/23/2018-continue hydration normal saline at 150 mL an hour. Dilaudid was increased to 3 mg IV every [address] Mckenzie goodman. I have continue patient's home medications including oxycodone and methadone. 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 Continue follow daily CBCs (3) Pain Is this a current diagnosis for this admission?: Yes Plan: 12/23/2018-patient continues verbalize extreme pain. His Dilaudid was increased by Dr. Mckenzie goodman today. I have restarted patient on his home medications methadone and oxycodone will follow (4) Depression Is this a current diagnosis for this admission?: Yes Plan: 12/23/2018-continue to observe judiciously. Patient with narcotic use secondary to sickle cell crisis and anemia. - Time Time Spent with patient: 15-24 minutes - Inpatient Certification Based on my medical assessment, after consideration of the patient's comorbidities, presenting symptoms, or acuity I expect that the services needed warrant INPATIENT care.: Yes I certify that my determination is in accordance with my understanding of Medic are's requirements for reasonable and necessary INPATIENT services [42 CFR 412.3e].: Yes Medical Necessity: Other - IV fluids, IV pain control
[2018-12-23] MEDS: FOLIC ACID 1 MG TABLET PO SCH (09:41)
[2018-12-23] MEDS ORDERED: HYDROXYUREA 500 MG CAPSULE PO SCH (10:00)
[2018-12-23] MEDS: DIPHENHYDRAMINE HCL 50 MG/ML VIAL IV PRN ×3 (11:45→23:14)
[2018-12-23] MEDS: METHADONE HCL 10 MG TABLET PO SCH ×2 (14:25→23:14)
[2018-12-24] MEDS: HYDROMORPHONE HCL INJ/PF 2 MG/ML AMPULE IV PRN ×9 (01:08→23:59)
[2018-12-24] MEDS ORDERED: HYDRALAZINE HCL INJ/PF 20 MG/1 ML SDV IV PRN (01:27)
[2018-12-24] MEDS: CLONIDINE HCL 0.2 MG TABLET PO SCH ×4 (02:02→18:48)
[2018-12-24] MEDS: DIPHENHYDRAMINE HCL 50 MG/ML VIAL IV PRN ×4 (05:19→21:12)
[2018-12-24] MEDS: METHADONE HCL 10 MG TABLET PO SCH ×3 (05:19→21:11)
[2018-12-24] MEDS: NORMAL SALINE 1000 ML 1,000 ML IV PRN ×3 (05:25→21:22)
[2018-12-24 05:43] LABS: HEMATOCRIT 26.2 % (37.9-51.0); HEMOGLOBIN 8.8 g/dL (13.5-17.0); MEAN CORPUSCULAR HEMOGLOBIN 31.1 pg (27.0-33.4); MEAN CORPUSCULAR HGB CONC 33.7 g/dL (32.0-36.0); MEAN CORPUSCULAR VOLUME 92 fl (80-97); PLATELET COUNT 317 10^3/uL (150-450); RED BLOOD COUNT 2.85 10^6/uL (4.35-5.55); RED CELL DISTRIBUTION WIDTH 19.8 % (11.5-14.0); WHITE BLOOD COUNT 8.9 10^3/uL (4.0-10.5)
[2018-12-24 06:00] LABS: ANION GAP 6 (5-19); BLOOD UREA NITROGEN 11 mg/dL (7-20); CALCIUM 8.5 mg/dL (8.4-10.2); CARBON DIOXIDE 31 mmol/L (22-30); CHLORIDE 101 mmol/L (98-107); GLUCOSE 110 mg/dL (75-110); POTASSIUM 3.6 mmol/L (3.6-5.0)
--- NOTE | 2018-12-24 09:13 | PDOC PROGRESS REPORT ---
Subjective Progress Note for:: 12/24/18 Subjective:: Patient with some left-sided discomfort, and cough and he was concerned that he may be developing pneumonia, I ordered a chest x-ray today, otherwise he feels the current dose of Dilaudid is appropriate. But his pain is still severe. Reason For Visit: SICKLE CELL CRISIS Physical Exam Vital Signs: Temp Pulse Resp BP Pulse Ox 100.9 F H 136 H 18 171/98 H 97 12/24/18 03:38 12/24/18 03:38 12/24/18 03:38 12/24/18 03:38 12/24/18 03:38 Intake & Output 12/23/18 12/24/18 12/25/18 06:59 06:59 06:59 Intake Total 5085 4242 Output Total 5500 2500 Balance -415 1742 Weight 82.3 kg 82.3 kg General appearance: PRESENT: no acute distress, well-developed, well-nourished Head exam: PRESENT: atraumatic, normocephalic Eye exam: PRESENT: conjunctiva pink, EOMI, PERRLA. ABSENT: scleral icterus Ear exam: PRESENT: normal external ear exam Mouth exam: PRESENT: moist, tongue midline Neck exam: ABSENT: carotid bruit, JVD, lymphadenopathy, thyromegaly Respiratory exam: PRESENT: clear to auscultation anastasiya. ABSENT: rales, rhonchi, wheezes Cardiovascular exam: PRESENT: RRR. ABSENT: diastolic murmur, rubs, systolic murmur Pulses: PRESENT: normal dorsalis pedis pul Vascular exam: PRESENT: normal capillary refill GI/Abdominal exam: PRESENT: normal bowel sounds, soft. ABSENT: distended, guarding, mass, organolmegaly, rebound, tenderness Rectal exam: PRESENT: deferred Extremities exam: PRESENT: full ROM. ABSENT: calf tenderness, clubbing, pedal edema Neurological exam: PRESENT: alert, awake, oriented to person, oriented to place, oriented to time, oriented to situation, CN II-XII grossly intact. ABSENT: motor sensory deficit Psychiatric exam: PRESENT: appropriate affect, normal mood. ABSENT: homicidal ideation, suicidal ideation Skin exam: PRESENT: dry, intact, warm. ABSENT: cyanosis, rash Results Laboratory Results: 12/24/18 05:15 12/24/18 05:15 12/24/18 12/24/18 05:15 05:15 WBC 8.9 RBC 2.85 L Hgb 8.8 L Hct 26.2 L MCV 92 MCH 31.1 MCHC 33.7 RDW 19.8 H Plt Count 317 Sodium 138.2 Potassium 3.6 Chloride 101 Carbon Dioxide 31 H Anion Gap 6 BUN 11 Creatinine 0.64 Est GFR ( Amer) > 60 Glucose 110 Calcium 8.5 12/20/18 12/20/18 10:16 10:16 Troponin I < 0.012 NT-Pro-B Natriuret Pep 40 Impressions: Abdomen Ultrasound 12/20/18 11:29 IMPRESSION: Cholelithiasis. No ultrasound evidence of acute cholecystitis. Assessment & Plan - Diagnosis (1) Sickle cell crisis Is this a current diagnosis for this admission?: Yes Plan: Continue with current supportive measures, continued need for IV pain meds, he will need to be in for the next few days. 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
--- NOTE | 2018-12-24 09:16 | PDOC PROGRESS REPORT ---
Subjective Progress Note for:: 12/24/18 Subjective:: 12/23/2018-continued pain, not receive his home medications. 12/24/2018-continue pain Reason For Visit: SICKLE CELL CRISIS Physical Exam Vital Signs: Temp Pulse Resp BP Pulse Ox 100.9 F H 136 H 18 171/98 H 97 12/24/18 03:38 12/24/18 03:38 12/24/18 03:38 12/24/18 03:38 12/24/18 03:38 Intake & Output 12/23/18 12/24/18 12/25/18 06:59 06:59 06:59 Intake Total 5085 4242 Output Total 5500 2500 Balance -415 1742 Weight 82.3 kg 82.3 kg General appearance: PRESENT: no acute distress, well-developed, well-nourished Head exam: PRESENT: atraumatic, normocephalic Eye exam: PRESENT: conjunctiva pink, EOMI, PERRLA. ABSENT: scleral icterus Ear exam: PRESENT: normal external ear exam Mouth exam: PRESENT: moist, tongue midline Neck exam: ABSENT: carotid bruit, JVD, lymphadenopathy, thyromegaly Respiratory exam: PRESENT: clear to auscultation anastasiya. ABSENT: rales, rhonchi, wheezes Cardiovascular exam: PRESENT: RRR. ABSENT: diastolic murmur, rubs, systolic murmur Pulses: PRESENT: normal dorsalis pedis pul Vascular exam: PRESENT: normal capillary refill GI/Abdominal exam: PRESENT: normal bowel sounds, soft. ABSENT: distended, guarding, mass, organolmegaly, rebound, tenderness Rectal exam: PRESENT: deferred Extremities exam: PRESENT: full ROM. ABSENT: calf tenderness, clubbing, pedal edema Neurological exam: PRESENT: alert, awake, oriented to person, oriented to place, oriented to time, oriented to situation, CN II-XII grossly intact. ABSENT: motor sensory deficit Psychiatric exam: PRESENT: appropriate affect, normal mood. ABSENT: homicidal ideation, suicidal ideation Skin exam: PRESENT: dry, intact, warm. ABSENT: cyanosis, rash Results Laboratory Results: 12/24/18 05:15 12/24/18 05:15 12/24/18 12/24/18 05:15 05:15 WBC 8.9 RBC 2.85 L Hgb 8.8 L Hct 26.2 L MCV 92 MCH 31.1 MCHC 33.7 RDW 19.8 H Plt Count 317 Sodium 138.2 Potassium 3.6 Chloride 101 Carbon Dioxide 31 H Anion Gap 6 BUN 11 Creatinine 0.64 Est GFR ( Amer) > 60 Glucose 110 Calcium 8.5 12/20/18 12/20/18 10:16 10:16 Troponin I < 0.012 NT-Pro-B Natriuret Pep 40 Impressions: Abdomen Ultrasound 12/20/18 11:29 IMPRESSION: Cholelithiasis. No ultrasound evidence of acute cholecystitis. Assessment and Plan - Diagnosis (1) Sickle cell crisis Is this a current diagnosis for this admission?: Yes Plan: Patient is going to admitted to the floor and managed accordingly. We will hydrate him aggressively with normal saline at rate of 200 mL/h. Dilated to 2 mg IV every 4 hours and to continue his home maintenance pain medication. We will continue also his hydroxyurea. 12/23/2018-continue hydration normal saline at 150 mL an hour. Dilaudid was in creased to 3 mg IV every [address] Mckenzie goodman. I have continue patient's home medications including oxycodone and methadone. Watch patient for any signs of overdose will follow 12/24/2018-continue IV hydration. Continue IV pain medications per Dr. Mckenzie goodman. Patient's home medication to be continued as well. Watch for any sign of overdose. 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 Continue follow daily CBCs 12/24/2018-stable repeat CBC and reticulocyte count a.m. (3) Pain Is this a current diagnosis for this admission?: Yes Plan: 12/23/2018-patient continues verbalize extreme pain. His Dilaudid was increased by Dr. Mckenzie goodman today. I have restarted patient on his home medications methadone and oxycodone will follow. . 12/24/2018-patient states pain continues continue Dilaudid as well as home medications apparently prescribed. (4) Depression Is this a current diagnosis for this admission?: Yes Plan: 12/23/2018-continue to observe judiciously. Patient with narcotic use secondary to sickle cell crisis and anemia. 12/24/2018-continue to observe judiciously - Time Time Spent with patient: 15-24 minutes - Inpatient Certification Based on my medical assessment, after consideration of the patient's comorbidities, presenting symptoms, or acuity I expect that the services needed warrant INPATIENT care.: Yes I certify that my determination is in accordance with my understanding of Medicare's requirements for reasonable and necessary INPATIENT services [42 CFR 412.3e].: Yes Medical Necessity: Other - IV fluids, IV pain control
[2018-12-24] MEDS ORDERED: HYDROXYUREA 500 MG CAPSULE PO SCH (10:00)
[2018-12-24] MEDS ORDERED: CLONIDINE HCL 0.2 MG TABLET PO SCH (10:00)
[2018-12-24] MEDS: FOLIC ACID 1 MG TABLET PO SCH (10:28)
[2018-12-24] MEDS: AMLODIPINE BESYLATE 10 MG TABLET PO SCH ×2 (10:28→10:54)
[2018-12-24] MEDS: FUROSEMIDE INJ/PF 40 MG/4 ML SDV IV ONE ×3 (10:28→15:45)
[2018-12-24] MEDS: POLYETHYLENE GLYCOL 3350 POWDER 17 GM/1 PACKET PO SCH (10:31)
[2018-12-24] MEDS: SENNOSIDES/DOCUSATE 8.6-50 MG 1 EACH TABLET PO PRN (11:04)
--- NOTE | 2018-12-24 12:43 | RADIOLOGY REPORT (SQ) ---
EXAM DESCRIPTION: CHEST 2 VIEWS COMPLETED DATE/TIME: 12/24/2018 12:34 pm REASON FOR STUDY: chest pain COMPARISON: 12/20/2018 NUMBER OF VIEWS: Two view TECHNIQUE: Frontal and lateral radiographic images of the chest acquired. LIMITATIONS: None. FINDINGS: LUNGS AND PLEURA: Stable appearance. MEDIASTINUM AND HILAR STRUCTURES: Stable heart size and mediastinal structures. HEART AND VASCULAR STRUCTURES: Stable appearance. BONES: No acute findings. HARDWARE: [id number] remains in place. OTHER: No other significant finding. IMPRESSION: No significant interval change in the chest. TECHNICAL DOCUMENTATION: JOB ID: [id number] [employer]- All Rights Reserved Reading location - IP/workstation name: [email or web address]
[2018-12-24] MEDS: DOCUSATE SODIUM 100 MG CAPSULE PO PRN (12:54)
[2018-12-24] MEDS: HYDROXYUREA 500 MG CAPSULE PO SCH ×2 (14:42→18:48)
[2018-12-24] MEDS ORDERED: FUROSEMIDE INJ/PF 40 MG/4 ML SDV ONE (15:42)
[2018-12-25] MEDS: HYDROMORPHONE HCL INJ/PF 2 MG/ML AMPULE IV PRN ×9 (02:26→23:57)
[2018-12-25] MEDS: DIPHENHYDRAMINE HCL 50 MG/ML VIAL IV PRN ×5 (02:26→23:56)
[2018-12-25] MEDS: CLONIDINE HCL 0.2 MG TABLET PO SCH ×3 (02:27→17:00)
[2018-12-25 07:36] LABS: ABSOLUTE RETICS # 0.141 10^6/uL (0.028-0.122); HEMATOCRIT 18.9 % (37.9-51.0); MEAN CORPUSCULAR HEMOGLOBIN 32.1 pg (27.0-33.4); MEAN CORPUSCULAR HGB CONC 34.4 g/dL (32.0-36.0); MEAN CORPUSCULAR VOLUME 94 fl (80-97); PLATELET COUNT 272 10^3/uL (150-450); RED BLOOD COUNT 2.02 10^6/uL (4.35-5.55); RED CELL DISTRIBUTION WIDTH 19.9 % (11.5-14.0); RETICULOCYTE COUNT (AUTO) 6.97 % (0.66-2.85); WHITE BLOOD COUNT 7.5 10^3/uL (4.0-10.5)
[2018-12-25 07:48] LABS: HEMOGLOBIN 6.5 g/dL (13.5-17.0)
--- NOTE | 2018-12-25 08:21 | PDOC PROGRESS REPORT ---
Subjective Progress Note for:: 12/25/18 Subjective:: 12/23/2018-continued pain, not receive his home medications. 12/24/2018-continue pain 12/25/2018-pain continues Reason For Visit: SICKLE CELL CRISIS Physical Exam Vital Signs: Temp Pulse Resp BP Pulse Ox 99.9 F 95 16 120/57 L 93 12/24/18 23:37 12/24/18 23:37 12/24/18 23:37 12/24/18 23:37 12/25/18 00:18 Intake & Output 12/24/18 12/25/18 12/26/18 06:59 06:59 06:59 Intake Total 4242 2477 Output Total 4976 3350 Balance 1742 -873 Weight 82.3 kg 82.3 kg General appearance: PRESENT: no acute distress, well-developed, well-nourished Head exam: PRESENT: atraumatic, normocephalic Eye exam: PRESENT: conjunctiva pink, EOMI, PERRLA. ABSENT: scleral icterus Ear exam: PRESENT: normal external ear exam Mouth exam: PRESENT: moist, tongue midline Neck exam: ABSENT: carotid bruit, JVD, lymphadenopathy, thyromegaly Respiratory exam: PRESENT: crackles, symmetrical. ABSENT: rales, rhonchi, wheezes Cardiovascular exam: PRESENT: RRR. ABSENT: diastolic murmur, rubs, systolic murmur Pulses: PRESENT: normal dorsalis pedis pul Vascular exam: PRESENT: normal capillary refill GI/Abdominal exam: PRESENT: normal bowel sounds, soft. ABSENT: distended, guarding, mass, organolmegaly, rebound, tenderness Rectal exam: PRESENT: deferred Extremities exam: PRESENT: full ROM. ABSENT: calf tenderness, clubbing, pedal edema Neurological exam: PRESENT: alert, awake, oriented to person, oriented to place, oriented to time, oriented to situation, CN II-XII grossly intact. ABSENT: motor sensory deficit Psychiatric exam: PRESENT: appropriate affect, normal mood. ABSENT: homicidal ideation, suicidal ideation Skin exam: PRESENT: dry, intact, warm. ABSENT: cyanosis, rash Results Laboratory Results: 12/25/18 06:50 12/24/18 05:15 12/25/18 06:50 WBC 7.5 RBC 2.02 L Hgb 6.5 L D Hct 18.9 L MCV 94 MCH 32.1 MCHC 34.4 RDW 19.9 H Plt Count 272 Retic Count (auto) 6.97 H 12/20/18 12/20/18 10:16 10:16 Troponin I < 0.012 NT-Pro-B Natriuret Pep 40 Impressions: Abdomen Ultrasound 12/20/18 11:29 IMPRESSION: Cholelithiasis. No ultrasound evidence of acute cholecystitis. Chest X-Ray 12/24/18 00:00 IMPRESSION: No significant interval change in the chest. Assessment and Plan - Diagnosis (1) Sickle cell crisis Is this a current diagnosis for this admission?: Yes Plan: Patient is going to admitted to the floor and managed accordingly. We will hydrate him aggressively with normal saline at rate of 200 mL/h. Dilated to 2 mg IV every 4 hours and to continue his home maintenance pain medication. We will continue also his hydroxyurea. 12/23/2018-continue hydration normal saline at 150 mL an hour. Dilaudid was increased to 3 mg IV every [address] Mckenzie goodman. I have continue patient's home medications including oxycodone and methadone. Watch patient for any signs of overdose will follow 12/24/2018-continue IV hydration. Continue IV pain medications per Dr. Mckenzie goodman. Patient's home medication to be continued as well. Watch for any sign of overdose. 12/25/2018-at this time I will reinstitute IV fluids at 100 mL an hour. I thought patient was getting slightly overloaded yesterday he did have rales bibasilarly chest x-ray was normal however I did give him 40 of Lasix. These rales persist in the right lower lobe suggesting patient might start having some pneumonia. He did have a chest x-ray yesterday and will repeat it today. Patient very lethargic unable to carry full sentences. 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 Continue follow daily CBCs 12/24/2018-stable repeat CBC and reticulocyte count a.m. 12/25/2018-hemoglobin 6.5 this a.m. Reticular site count down to 6. Will defer transfusions to Dr. Mckenzie goodman. (3) Pain Is this a current diagnosis for this admission?: Yes Plan: 12/23/2018-patient continues verbalize extreme pain. His Dilaudid was increased by Dr. Mckenzie goodman today. I have restarted patient on his home medications methadone and oxycodone will follow. . 12/24/2018-patient states pain continues continue Dilaudid as well as home medications apparently prescribed. 12/25/2018-patient states pain continues despite 3 mg of Dilaudid every 2 hours and home medications. Pain management has been deferred to Dr. Mckenzie goodman (4) Depression Is this a current diagnosis for this admission?: Yes Plan: 12/23/2018-continue to observe judiciously. Patient with narcotic use secondary to sickle cell crisis and anemia. 12/24/2018-continue to observe judiciously 12/25/2018-continue to observe - Time Time Spent with patient: 15-24 minutes - Inpatient Certification Based on my medical assessment, after consideration of the patient's comorbidities, presenting symptoms, or acuity I expect that the services needed warrant INPATIENT care.: Yes I certify that my determination is in accordance with my understanding of Medicare's requirements for reasonable and necessary INPATIENT services [42 CFR 412.3e].: Yes Medical Necessity: Other - IV fluids, IV pain control
[2018-12-25] MEDS: FOLIC ACID 1 MG TABLET PO SCH (10:12)
[2018-12-25] MEDS: AMLODIPINE BESYLATE 10 MG TABLET PO SCH (10:15)
--- NOTE | 2018-12-25 10:17 | PDOC PROGRESS REPORT ---
Subjective Progress Note for:: 12/25/18 Subjective:: Pain is a little bit better, seems appropriate controlled with current dose. Continue current dose medication. Told patient that because of bad weather coming in it may not be able to see him until Saturday or Saturday, but continue current treatment until then. Hemoglobin is down to 6.5, would await tomorrow's labs to see if there is further decrease down to the 5 range. If that is the case would give 1 unit packed red blood cell but patient does have autoantibo dies so may take some time to get blood. Reason For Visit: SICKLE CELL CRISIS Physical Exam Vital Signs: Temp Pulse Resp BP Pulse Ox 98.8 F 103 H 16 133/77 H 99 12/25/18 08:00 12/25/18 08:00 12/25/18 08:00 12/25/18 08:00 12/25/18 08:00 Intake & Output 12/24/18 12/25/18 12/26/18 06:59 06:59 06:59 Intake Total 4242 2477 349 Output Total 2500 3350 Balance 1742 -873 349 Weight 82.3 kg 82.3 kg General appearance: PRESENT: no acute distress, well-developed, well-nourished Head exam: PRESENT: atraumatic, normocephalic Eye exam: PRESENT: conjunctiva pink, EOMI, PERRLA. ABSENT: scleral icterus Ear exam: PRESENT: normal external ear exam Mouth exam: PRESENT: moist, tongue midline Neck exam: ABSENT: carotid bruit, JVD, lymphadenopathy, thyromegaly Respiratory exam: PRESENT: clear to auscultation anastasiya. ABSENT: rales, rhonchi, wheezes Cardiovascular exam: PRESENT: RRR. ABSENT: diastolic murmur, rubs, systolic murmur Pulses: PRESENT: normal dorsalis pedis pul Vascular exam: PRESENT: normal capillary refill GI/Abdominal exam: PRESENT: normal bowel sounds, soft. ABSENT: distended, gu arding, mass, organolmegaly, rebound, tenderness Rectal exam: PRESENT: deferred Extremities exam: PRESENT: full ROM. ABSENT: calf tenderness, clubbing, pedal edema Neurological exam: PRESENT: alert, awake, oriented to person, oriented to place, oriented to time, oriented to situation, CN II-XII grossly intact. ABSENT: mot or sensory deficit Psychiatric exam: PRESENT: appropriate affect, normal mood. ABSENT: homicidal ideation, suicidal ideation Skin exam: PRESENT: dry, intact, warm. ABSENT: cyanosis, rash Results Laboratory Results: 12/25/18 06:50 12/24/18 05:15 12/25/18 06:50 WBC 7.5 RBC 2.02 L Hgb 6.5 L D Hct 18.9 L MCV 94 MCH 32.1 MCHC 34.4 RDW 19.9 H Plt Count 272 Retic Count (auto) 6.97 H 12/20/18 12/20/18 10:16 10:16 Troponin I < 0.012 NT-Pro-B Natriuret Pep 40 Impressions: Abdomen Ultrasound 12/20/18 11:29 IMPRESSION: Cholelithiasis. No ultrasound evidence of acute cholecystitis. Chest X-Ray 12/24/18 00:00 IMPRESSION: No significant interval change in the chest. Assessment & Plan - Diagnosis (1) Sickle cell crisis Is this a current diagnosis for this admission?: Yes Plan: Continued pain crisis, needs continued IV pain medication, continue other supportive measures including IV fluids. 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 As noted above, patient does have autoantibodies so may take some time to type and cross blood. - Time Time Spent with patient: 35 or more minutes - Inpatient Certification Based on my medical assessment, after consideration of the patient's comorbidities, presenting symptoms, or acuity I expect that the services needed warrant INPATIENT care.: Yes I certify that my determination is in accordance with my understanding of Medicare's requirements for reasonable and necessary INPATIENT services [42 CFR 412.3e].: Yes Medical Necessity: Need For IV Fluids, Risk of Complication if Not Cared For in Hospital
[2018-12-25] MEDS: POLYETHYLENE GLYCOL 3350 POWDER 17 GM/1 PACKET PO SCH (10:19)
[2018-12-25] MEDS: DOCUSATE SODIUM 100 MG CAPSULE PO PRN (10:35)
[2018-12-25] MEDS: SENNOSIDES/DOCUSATE 8.6-50 MG 1 EACH TABLET PO PRN (10:35)
[2018-12-25] MEDS: HYDROXYUREA 500 MG CAPSULE PO SCH ×2 (10:35→17:51)
[2018-12-25] MEDS: METHADONE HCL 10 MG TABLET PO SCH ×3 (14:01→23:07)
[2018-12-26] MEDS: HYDROMORPHONE HCL INJ/PF 2 MG/ML AMPULE IV PRN ×9 (02:23→23:49)
[2018-12-26] MEDS: CLONIDINE HCL 0.2 MG TABLET PO SCH ×3 (02:24→17:07)
[2018-12-26] MEDS: DIPHENHYDRAMINE HCL 50 MG/ML VIAL IV PRN ×4 (05:00→21:41)
[2018-12-26] MEDS: METHADONE HCL 10 MG TABLET PO SCH ×3 (06:16→21:41)
[2018-12-26 08:19] LABS: HEMATOCRIT 20.1 % (37.9-51.0); MEAN CORPUSCULAR HEMOGLOBIN 31.7 pg (27.0-33.4); MEAN CORPUSCULAR HGB CONC 34.3 g/dL (32.0-36.0); MEAN CORPUSCULAR VOLUME 92 fl (80-97); PLATELET COUNT 313 10^3/uL (150-450); RED BLOOD COUNT 2.18 10^6/uL (4.35-5.55); WHITE BLOOD COUNT 8.1 10^3/uL (4.0-10.5)
[2018-12-26 08:23] LABS: HEMOGLOBIN 6.9 g/dL (13.5-17.0)
[2018-12-26 08:42] LABS: ANION GAP 7 (5-19); BLOOD UREA NITROGEN 10 mg/dL (7-20); CALCIUM 8.2 mg/dL (8.4-10.2); CARBON DIOXIDE 35 mmol/L (22-30); CHLORIDE 97 mmol/L (98-107); GLUCOSE 88 mg/dL (75-110); POTASSIUM 3.5 mmol/L (3.6-5.0)
--- NOTE | 2018-12-26 09:34 | PDOC PROGRESS REPORT ---
Subjective Progress Note for:: 12/26/18 Subjective:: 12/23/2018-continued pain, not receive his home medications. 12/24/2018-continue pain 12/25/2018-pain continues 12/26/2018-continued pain Reason For Visit: SICKLE CELL CRISIS Physical Exam Vital Signs: Temp Pulse Resp BP Pulse Ox 99.3 F 92 16 138/83 H 99 12/25/18 23:21 12/25/18 23:21 12/25/18 23:21 12/25/18 23:21 12/25/18 23:21 Intake & Output 12/25/18 12/26/18 12/27/18 06:59 06:59 06:59 Intake Total 2477 1829 Output Total 3350 3300 Balance -873 -1471 Weight 82.3 kg 82.5 kg General appearance: PRESENT: no acute distress, well-developed, well-nourished Head exam: PRESENT: atraumatic, normocephalic Eye exam: PRESENT: conjunctiva pink, EOMI, PERRLA. ABSENT: scleral icterus Ear exam: PRESENT: normal external ear exam Mouth exam: PRESENT: moist, tongue midline Neck exam: ABSENT: carotid bruit, JVD, lymphadenopathy, thyromegaly Respiratory exam: PRESENT: clear to auscultation anastasiya. ABSENT: rales, rhonchi, wheezes Cardiovascular exam: PRESENT: RRR. ABSENT: diastolic murmur, rubs, systolic murmur Pulses: PRESENT: normal dorsalis pedis pul Vascular exam: PRESENT: normal capillary refill GI/Abdominal exam: PRESENT: normal bowel sounds, soft. ABSENT: distended, guarding, mass, organolmegaly, rebound, tenderness Rectal exam: PRESENT: deferred Extremities exam: PRESENT: full ROM. ABSENT: calf tenderness, clubbing, pedal edema Neurological exam: PRESENT: alert, awake, oriented to person, oriented to place, oriented to time, oriented to situation, CN II-XII grossly intact, other - Very lethargic. ABSENT: motor sensory deficit Psychiatric exam: PRESENT: appropriate affect, normal mood. ABSENT: homicidal ideation, suicidal ideation Skin exam: PRESENT: dry, intact, warm. ABSENT: cyanosis, rash Results Laboratory Results: 12/26/18 07:50 12/26/18 07:50 12/26/18 12/26/18 07:50 07:50 WBC 8.1 RBC 2.18 L Hgb 6.9 L Hct 20.1 L MCV 92 MCH 31.7 MCHC 34.3 RDW 21.0 H Plt Count 313 Sodium 138.9 Potassium 3.5 L Chloride 97 L Carbon Dioxide 35 H Anion Gap 7 BUN 10 Creatinine 0.60 Est GFR ( Amer) > 60 Glucose 88 Calcium 8.2 L 12/20/18 12/20/18 10:16 10:16 Troponin I < 0.012 NT-Pro-B Natriuret Pep 40 Impressions: Abdomen Ultrasound 12/20/18 11:29 IMPRESSION: Cholelithiasis. No ultrasound evidence of acute cholecystitis. Chest X-Ray 12/24/18 00:00 IMPRESSION: No significant interval change in the chest. Assessment and Plan - Diagnosis (1) Sickle cell crisis Is this a current diagnosis for this admission?: Yes Plan: Patient is going to admitted to the floor and managed accordingly. We will hydrate him aggressively with normal saline at rate of 200 mL/h. Dilated to 2 mg IV every 4 hours and to continue his home maintenance pain medication. We will continue also his hydroxyurea. 12/23/2018-continue hydration normal saline at 150 mL an hour. Dilaudid was increased to 3 mg IV every [address] Mckenzie goodman. I have continue patient's home medications including oxycodone and methadone. Watch patient for any signs of overdose will follow 12/24/2018-continue IV hydration. Continue IV pain medications per Dr. Mckenzie goodman. Patient's home medication to be continued as well. Watch for any sign of overdose. 12/25/2018-at this time I will reinstitute IV fluids at 100 mL an hour. I thought patient was getting slightly overloaded yesterday he did have rales bibasilarly chest x-ray was normal however I did give him 40 of Lasix. These rales persist in the right lower lobe suggesting patient might start having some pneumonia. He did have a chest x-ray yesterday and will repeat it today. Patient very lethargic unable to carry full sentences. 12/26/2018-repeat chest x-ray this a.m. as yesterday was difficult with Hurricaine approaching. Continue IV fluids at this time continue pain management. 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 Continue follow daily CBCs 12/24/2018-stable repeat CBC and reticulocyte count a.m. 12/25/2018-hemoglobin 6.5 this a.m. Reticular site count down to 6. Will defer transfusions to Dr. Mckenzie goodman. 12/26/2018-improved today hemoglobin 6.9. Repeat CBC and reticular site count in the morning. (3) Pain Is this a current diagnosis for this admission?: Yes Plan: 12/23/2018-patient continues verbalize extreme pain. His Dilaudid was increased by Dr. Mckenzie goodman today. I have restarted patient on his home medications methadone and oxycodone will follow. . 12/24/2018-patient states pain continues continue Dilaudid as well as home medications apparently prescribed. 12/25/2018-patient states pain continues despite 3 mg of Dilaudid every 2 hours and home medications. Pain management has been deferred to Dr. Mckenzie goodman 12/26/2018-continue pain management per Dr. Mckenzie goodman (4) Depression Is this a current diagnosis for this admission?: Yes Plan: 12/23/2018-continue to observe judiciously. Patient with narcotic use secondary to sickle cell crisis and anemia. 12/24/2018-continue to observe judiciously 12/25/2018-continue to observe 12/26/2018 continue to follow - Time Time Spent with patient: 15-24 minutes - Inpatient Certification Based on my medical assessment, after consideration of the patient's comorbidities, presenting symptoms, or acuity I expect that the services needed warrant INPATIENT care.: Yes I certify that my determination is in accordance with my understanding of Medicare's requirements for reasonable and necessary INPATIENT services [42 CFR 412.3e].: Yes Medical Necessity: Other - IV fluids, IV pain control
--- NOTE | 2018-12-26 11:29 | RADIOLOGY REPORT (SQ) ---
EXAM DESCRIPTION: CHEST SINGLE VIEW COMPLETED DATE/TIME: 12/26/2018 11:17 am REASON FOR STUDY: shortness of breath COMPARISON: 12/24/2018 NUMBER OF VIEWS: One view. TECHNIQUE: Single frontal radiographic view of the chest acquired. LIMITATIONS: None. FINDINGS: LUNGS AND PLEURA: There is persistent bibasilar airspace disease. Left basilar airspace d isease has increased from prior study. [id number] remains in place. MEDIASTINUM AND HILAR STRUCTURES: Perihilar fullness remains. HEART AND VASCULAR STRUCTURES: Heart size is stable. BONES: No acute findings. HARDWARE: [id number] remains in place. OTHER: No other significant finding. IMPRESSION: Slight increase in bibasilar airspace disease either atelectasis or pneumonia. TECHNICAL DOCUMENTATION: JOB ID: [id number] [employer]- All Rights Reserved Reading location - IP/workstation name: [email or web address]
[2018-12-26] MEDS: FOLIC ACID 1 MG TABLET PO SCH (11:44)
[2018-12-26] MEDS: HYDROXYUREA 500 MG CAPSULE PO SCH ×2 (11:44→17:08)
[2018-12-26] MEDS: AMLODIPINE BESYLATE 10 MG TABLET PO SCH (11:44)
[2018-12-26 11:59] LABS: METHADONE CONFIRMATION URINE Positive (.)
[2018-12-26] MEDS: SENNOSIDES/DOCUSATE 8.6-50 MG 1 EACH TABLET PO PRN (12:33)
[2018-12-26] MEDS: DOCUSATE SODIUM 100 MG CAPSULE PO PRN ×2 (12:33→21:50)
[2018-12-26] MEDS: AZITHROMYCIN 500 MG in DEXTROSE 5%-WATER 250 ML IV SCH (15:43)
[2018-12-26] MEDS: NORMAL SALINE 1000 ML 1,000 ML IV PRN (23:59)
[2018-12-27] MEDS: DIPHENHYDRAMINE HCL 50 MG/ML VIAL IV PRN ×6 (01:41→23:45)
[2018-12-27] MEDS: HYDROMORPHONE HCL INJ/PF 2 MG/ML AMPULE IV PRN ×11 (01:42→23:46)
[2018-12-27] MEDS: CLONIDINE HCL 0.2 MG TABLET PO SCH ×3 (01:46→17:33)
[2018-12-27 04:42] LABS: ABSOLUTE RETICS # 0.212 10^6/uL (0.028-0.122); HEMATOCRIT 20.9 % (37.9-51.0); MEAN CORPUSCULAR HEMOGLOBIN 31.7 pg (27.0-33.4); MEAN CORPUSCULAR HGB CONC 33.6 g/dL (32.0-36.0); MEAN CORPUSCULAR VOLUME 94 fl (80-97); PLATELET COUNT 329 10^3/uL (150-450); RED BLOOD COUNT 2.22 10^6/uL (4.35-5.55); RETICULOCYTE COUNT (AUTO) 9.55 % (0.66-2.85); WHITE BLOOD COUNT 7.9 10^3/uL (4.0-10.5)
[2018-12-27 04:57] LABS: BLOOD UREA NITROGEN 7 mg/dL (7-20); CHLORIDE 99 mmol/L (98-107); GLUCOSE 72 mg/dL (75-110); POTASSIUM 3.7 mmol/L (3.6-5.0)
[2018-12-27 05:09] LABS: ANION GAP 6 (5-19); CARBON DIOXIDE 35 mmol/L (22-30)
[2018-12-27] MEDS: METHADONE HCL 10 MG TABLET PO SCH ×3 (05:27→21:40)
[2018-12-27] MEDS: SENNOSIDES/DOCUSATE 8.6-50 MG 1 EACH TABLET PO PRN ×2 (08:44→21:40)
[2018-12-27] MEDS: DOCUSATE SODIUM 100 MG CAPSULE PO PRN (08:44)
[2018-12-27] MEDS ORDERED: AZITHROMYCIN INJ 500 MG VIAL IV SCH (10:00)
--- NOTE | 2018-12-27 10:30 | PDOC PROGRESS REPORT ---
Subjective Progress Note for:: 12/27/18 Subjective:: Pain still fairly severe, difficult for him to get out of bed but I have encouraged him to take some pain medication try and at least get up in a chair. Reason For Visit: SICKLE CELL CRISIS Physical Exam Vital Signs: Temp Pulse Resp BP Pulse Ox 99.1 F 92 15 143/73 H 100 12/27/18 08:00 12/27/18 08:00 12/27/18 08:00 12/27/18 08:00 12/27/18 08:00 Intake & Output 12/26/18 12/27/18 12/28/18 06:59 06:59 06:59 Intake Total 1829 2350 Output Total 3300 4900 Balance -1471 -2550 Weight 82.5 kg 84.5 kg General appearance: PRESENT: no acute distress, well-developed, well-nourished Head exam: PRESENT: atraumatic, normocephalic Eye exam: PRESENT: conjunctiva pink, EOMI, PERRLA. ABSENT: scleral icterus Ear exam: PRESENT: normal external ear exam Mouth exam: PRESENT: moist, tongue midline Neck exam: ABSENT: carotid bruit, JVD, lymphadenopathy, thyromegaly Respiratory exam: PRESENT: clear to auscultation anastasiya. ABSENT: rales, rhonchi, wheezes Cardiovascular exam: PRESENT: RRR. ABSENT: diastolic murmur, rubs, systolic murmur Pulses: PRESENT: normal dorsalis pedis pul Vascular exam: PRESENT: normal capillary refill GI/Abdominal exam: PRESENT: normal bowel sounds, soft. ABSENT: distended, guarding, mass, organolmegaly, rebound, tenderness Rectal exam: PRESENT: deferred Extremities exam: PRESENT: full ROM. ABSENT: calf tenderness, clubbing, pedal edema Neurological exam: PRESENT: alert, awake, oriented to person, oriented to place, oriented to time, oriented to situation, CN II-XII grossly intact. ABSENT: motor sensory deficit Psychiatric exam: PRESENT: appropriate affect, normal mood. ABSENT: homicidal ideation, suicidal ideation Skin exam: PRESENT: dry, intact, warm. ABSENT: cyanosis, rash Results Laboratory Results: 12/27/18 04:15 12/27/18 04:15 12/27/18 12/27/18 04:15 04:15 WBC 7.9 RBC 2.22 L Hgb 7.0 L Hct 20.9 L MCV 94 MCH 31.7 MCHC 33.6 RDW 21.0 H Plt Count 329 Retic Count (auto) 9.55 H Sodium 139.5 Potassium 3.7 Chloride 99 Carbon Dioxide 35 H Anion Gap 6 BUN 7 Creatinine 0.54 Est GFR ( Amer) > 60 Glucose 72 L Calcium 8.0 L 12/20/18 12/20/18 10:16 10:16 Troponin I < 0.012 NT-Pro-B Natriuret Pep 40 Impressions: Abdomen Ultrasound 12/20/18 11:29 IMPRESSION: Cholelithiasis. No ultrasound evidence of acute cholecystitis. Chest X-Ray 12/26/18 00:00 IMPRESSION: Slight increase in bibasilar airspace disease either atelectasis or pneumonia. 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
[2018-12-27] MEDS: HYDROXYUREA 500 MG CAPSULE PO SCH (13:22)
[2018-12-27] MEDS: AMLODIPINE BESYLATE 10 MG TABLET PO SCH (13:22)
[2018-12-27] MEDS: FOLIC ACID 1 MG TABLET PO SCH (13:22)
[2018-12-27] MEDS: NORMAL SALINE 1000 ML 1,000 ML IV PRN ×2 (13:34→21:39)
--- NOTE | 2018-12-27 14:39 | Progress Note Acknowledgement ---
Progress Note Acknowledgement Progess Note Acknowledgement: I, the undersigned member of the medical staff with appropriate privileges and with supervisory authority over Rona Lowery, a [facility] practice allied health professional, acknowledge that I have reviewed the progress notes entered on this patient, and in my professional judgment believe that the assessment made and/or any care evidenced was appropriate
[2018-12-27] MEDS ORDERED: GUAIFENESIN SYRP 200 MG/10 ML UDC PO PRN (14:45)
[2018-12-27] MEDS ORDERED: ALBUTEROL SULFATE 0.083% NEB 2.5 MG/3 ML AMPUL NEB PRN (14:45)
--- NOTE | 2018-12-27 14:54 | PDOC PROGRESS REPORT ---
Subjective Progress Note for:: 12/27/18 Subjective:: The patient is a 38-year-old male with a past medical history significant for sickle cell anemia, avascular necrosis of the hips, depression who was admitted 12/20/2018 for sickle cell crisis. Patient is seen on morning rounds. He is found sitting up to the edge of the bed on supplemental oxygen via nasal cannula at 2 L/min; he is maintaining oxygen saturations in the high 90s. He is noted to be fatigued/drowsy; eyes drift close during conversation and he has to be prompted to respond to questions. He reports continued pain, especially with deep inspiration and movement. He states that he did see his oral therapist this morning, no medication adjustments have been made. He denies fever, chills, cardiac chest pain, orthopnea, cough, abdominal pain, nausea vomiting diarrhea. He has no questions or concerns at this time. No concerns per nursing. Reason For Visit: SICKLE CELL CRISIS Physical Exam Vital Signs: Temp Pulse Resp BP Pulse Ox 98.5 F 84 15 140/97 H 98 12/27/18 11:40 12/27/18 11:40 12/27/18 08:00 12/27/18 11:40 12/27/18 11:40 Intake & Output 12/26/18 12/27/18 12/28/18 06:59 06:59 06:59 Intake Total 1829 2350 1000 Output Total 3300 4900 Balance -1471 -2550 1000 Weight 82.5 kg 84.5 kg General appearance: PRESENT: no acute distress, well-developed, well-nourished Head exam: PRESENT: atraumatic, normocephalic Eye exam: PRESENT: conjunctiva pink, EOMI, PERRLA. ABSENT: scleral icterus Ear exam: PRESENT: normal external ear exam Mouth exam: PRESENT: moist, tongue midline Neck exam: ABSENT: carotid bruit, JVD, lymphadenopathy, thyromegaly Respiratory exam: PRESENT: crackles - Right lower stevens, symmetrical, unlabored. ABSENT: rales, rhonchi, wheezes Cardiovascular exam: PRESENT: RRR. ABSENT: diastolic murmur, rubs, systolic murmur Pulses: PRESENT: normal dorsalis pedis pul Vascular exam: PRESENT: normal capillary refill GI/Abdominal exam: PRESENT: normal bowel sounds, soft. ABSENT: distended, guarding, mass, organolmegaly, rebound, tenderness Rectal exam: PRESENT: deferred Extremities exam: PRESENT: full ROM. ABSENT: calf tenderness, clubbing, pedal edema Musculoskeletal exam: PRESENT: ambulatory Neurological exam: PRESENT: alert, awake, oriented to person, oriented to place, oriented to time, oriented to situation, CN II-XII grossly intact, other - Drowsy. ABSENT: motor sensory deficit Psychiatric exam: PRESENT: appropriate affect, normal mood. ABSENT: homicidal ideation, suicidal ideation Skin exam: PRESENT: dry, intact, warm. ABSENT: cyanosis, rash Results Laboratory Results: 12/27/18 04:15 12/27/18 04:15 12/27/18 12/27/18 04:15 04:15 WBC 7.9 RBC 2.22 L Hgb 7.0 L Hct 20.9 L MCV 94 MCH 31.7 MCHC 33.6 RDW 21.0 H Plt Count 329 Retic Count (auto) 9.55 H Sodium 139.5 Potassium 3.7 Chloride 99 Carbon Dioxide 35 H Anion Gap 6 BUN 7 Creatinine 0.54 Est GFR ( Amer) > 60 Glucose 72 L Calcium 8.0 L 12/20/18 12/20/18 10:16 10:16 Troponin I < 0.012 NT-Pro-B Natriuret Pep 40 Impressions: Abdomen Ultrasound 12/20/18 11:29 IMPRESSION: Cholelithiasis. No ultrasound evidence of acute cholecystitis. Chest X-Ray 12/26/18 00:00 IMPRESSION: Slight increase in bibasilar airspace disease either atelectasis or pneumonia. Assessment and Plan - Diagnosis (1) Sickle cell crisis Is this a current diagnosis for this admission?: Yes Plan: Patient is admitted to the medical floor. Continue IV fluids. Continue supplemental oxygen. Continue home dose hydroxyurea. Hematology is consulted; primary management per their expertise. We will defer pain medications, adjuncts (baclofen, Sudafed, Benadryl, etc.) to hematology. Encourage nonpharmacological interventions (oxygen, position changing, heating pad, ambulation). (2) Sickle cell anemia Qualifiers: Sickle-cell associated disorders: with unspecified crisis Qualified Code(s): D57.00 - Hb-SS disease with crisis, unspecified; D57.0 - Hb-SS disease with crisis Is this a current diagnosis for this admission?: Yes Plan: Baseline hemoglobin of 9.0; has trended down to 7.0. Hematology monitoring; transfuse per their recommendation of hemoglobin less than 6. Continue home dose hydroxyurea. Continue folic acid. (3) Pneumonia Qualifiers: Pneumonia type: due to unspecified organism Laterality: bilateral Lung location: lower lobe of lung Qualified Code(s): J18.1 - Lobar pneumonia, unspecified organism Is this a current diagnosis for this admission?: Yes Plan: Bibasilar atelectasis versus pneumonia noted on chest x-ray. He is noted to have right lower field crackles. He does complain of right posterior chest wall pain with inspiration/cough. Does have an occasional nonproductive cough. Blood cultures pending. Sputum cultures ordered; not yet obtained. Patient has been empirically started on azithromycin. Fortunately he remains afebrile with a normal WBC; if he clinically worsens, may need to escalate antibiotics for coverage of a healthcare associated pneumonia (vancomycin and cefepime). Continue supplemental oxygen as needed to maintain saturations. As needed nebulizer treatments. As needed Robitussin. Incentive spirometer to bedside. Encourage ambulation. (4) Depression Is this a current diagnosis for this admission?: Yes Plan: Stable. Patient is not currently on antidepressant medications. When more alert, may consider offering mental health consultation versus start of SSRI/SNRI. (5) Hypertension Is this a current diagnosis for this admission?: Yes Plan: Continue scheduled amlodipine and clonidine. IV hydralazine as needed for blood pressure control. Cardiac diet. (6) Opiate dependence, continuous Is this a current diagnosis for this admission?: Yes Plan: Secondary to chronic sickle cell pain/avascular necrosis of the hips. Pain medication regiment per patient's oral therapist. Appreciate Dr. Medellin's assistance. - Time Time Spent with patient: 15-24 minutes Medications reviewed and adjusted accordingly: Yes Anticipated discharge: Home
[2018-12-27] MEDS: AZITHROMYCIN 500 MG in DEXTROSE 5%-WATER 250 ML IV SCH (15:28)
[2018-12-28] MEDS: HYDROMORPHONE HCL INJ/PF 2 MG/ML AMPULE IV PRN ×11 (01:48→22:15)
[2018-12-28] MEDS: CLONIDINE HCL 0.2 MG TABLET PO SCH ×3 (01:56→18:15)
[2018-12-28] MEDS: DIPHENHYDRAMINE HCL 50 MG/ML VIAL IV PRN ×5 (03:48→20:22)
[2018-12-28] MEDS: METHADONE HCL 10 MG TABLET PO SCH ×3 (05:47→22:14)
[2018-12-28] MEDS: NORMAL SALINE 1000 ML 1,000 ML IV PRN ×2 (05:48→16:18)
[2018-12-28 06:40] LABS: HEMATOCRIT 20.6 % (37.9-51.0); MEAN CORPUSCULAR HEMOGLOBIN 32.2 pg (27.0-33.4); MEAN CORPUSCULAR HGB CONC 34.2 g/dL (32.0-36.0); MEAN CORPUSCULAR VOLUME 94 fl (80-97); PLATELET COUNT 349 10^3/uL (150-450); RED BLOOD COUNT 2.18 10^6/uL (4.35-5.55); WHITE BLOOD COUNT 6.4 10^3/uL (4.0-10.5)
[2018-12-28 06:43] LABS: ANION GAP 7 (5-19); BLOOD UREA NITROGEN 7 mg/dL (7-20); CALCIUM 8.4 mg/dL (8.4-10.2); CARBON DIOXIDE 33 mmol/L (22-30); CHLORIDE 100 mmol/L (98-107); GLUCOSE 106 mg/dL (75-110); POTASSIUM 3.8 mmol/L (3.6-5.0)
--- NOTE | 2018-12-28 09:35 | PDOC PROGRESS REPORT ---
Subjective Progress Note for:: 12/28/18 Subjective:: 12/23/2018-continued pain, not receive his home medications. 12/24/2018-continue pain 12/25/2018-pain continues 12/26/2018-continued pain 12/28/2018-pain improved this morning states he is feeling better Reason For Visit: SICKLE CELL CRISIS Physical Exam Vital Signs: Temp Pulse Resp BP Pulse Ox 98.4 F 76 17 148/79 H 98 12/27/18 23:52 12/27/18 23:52 12/27/18 23:52 12/27/18 23:52 12/27/18 23:52 Intake & Output 12/27/18 12/28/18 12/29/18 06:59 06:59 06:59 Intake Total 2350 4073 Output Total 4900 2350 Balance -2550 1723 Weight 84.5 kg 82.4 kg General appearance: PRESENT: no acute distress, well-developed, well-nourished Head exam: PRESENT: atraumatic, normocephalic Eye exam: PRESENT: conjunctiva pink, EOMI, PERRLA. ABSENT: scleral icterus Ear exam: PRESENT: normal external ear exam Mouth exam: PRESENT: moist, tongue midline Neck exam: ABSENT: carotid bruit, JVD, lymphadenopathy, thyromegaly Respiratory exam: PRESENT: clear to auscultation anastasiya, rales, other - Slight rales in the right base. ABSENT: rhonchi, wheezes Cardiovascular exam: PRESENT: RRR. ABSENT: diastolic murmur, rubs, systolic murmur Pulses: PRESENT: normal dorsalis pedis pul Vascular exam: PRESENT: normal capillary refill GI/Abdominal exam: PRESENT: normal bowel sounds, soft. ABSENT: distended, guarding, mass, organolmegaly, rebound, tenderness Rectal exam: PRESENT: deferred Extremities exam: PRESENT: full ROM. ABSENT: calf tenderness, clubbing, pedal edema Neurological exam: PRESENT: alert, awake, oriented to person, oriented to place, oriented to time, oriented to situation, CN II-XII grossly intact. ABSENT: motor sensory deficit Psychiatric exam: PRESENT: appropriate affect, normal mood. ABSENT: homicidal ideation, suicidal ideation Skin exam: PRESENT: dry, intact, warm. ABSENT: cyanosis, rash Results Laboratory Results: 12/28/18 05:40 12/28/18 05:40 12/28/18 12/28/18 05:40 05:40 WBC 6.4 RBC 2.18 L Hgb 7.0 L Hct 20.6 L MCV 94 MCH 32.2 MCHC 34.2 RDW 22.0 H Plt Count 349 Sodium 139.9 Potassium 3.8 Chloride 100 Carbon Dioxide 33 H Anion Gap 7 BUN 7 Creatinine 0.55 Est GFR ( Amer) > 60 Glucose 106 Calcium 8.4 12/20/18 12/20/18 10:16 10:16 Troponin I < 0.012 NT-Pro-B Natriuret Pep 40 Impressions: Abdomen Ultrasound 12/20/18 11:29 IMPRESSION: Cholelithiasis. No ultrasound evidence of acute cholecystitis. Chest X-Ray 12/26/18 00:00 IMPRESSION: Slight increase in bibasilar airspace disease either atelectasis or pneumonia. Assessment and Plan - Diagnosis (1) Sickle cell crisis Is this a current diagnosis for this admission?: Yes Plan: Patient is admitted to the medical floor. Continue IV fluids. Continue supplemental oxygen. Continue home dose hydroxyurea. Hematology is consulted; primary management per their expertise. We will defer pain medications, adjuncts (baclofen, Sudafed, Benadryl, etc.) to hematology. Encourage nonpharmacological interventions (oxygen, position changing, heating pad, ambulation). 12/28/2018-continue IV fluids, hydroxyurea and pain management per hematology. Will repeat CBC and reticular site count in a.m. 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 Continue follow daily CBCs 12/24/2018-stable repeat CBC and reticulocyte count a.m. 12/25/2018-hemoglobin 6.5 this a.m. Reticular site count down to 6. Will defer transfusions to Dr. Mckenzie goodman. 12/26/2018-improved today hemoglobin 6.9. Repeat CBC and reticular site count in the morning. 12/28/2018-stable continue to follow daily CBCs (3) Pain Is this a current diagnosis for this admission?: Yes Plan: 12/23/2018-patient continues verbalize extreme pain. His Dilaudid was increased by Dr. Mckenzie goodman today. I have restarted patient on his home medications methadone and oxycodone will follow. . 12/24/2018-patient states pain continues continue Dilaudid as well as home med ications apparently prescribed. 12/25/2018-patient states pain continues despite 3 mg of Dilaudid every 2 hours and home medications. Pain management has been deferred to Dr. Mckenzie goodman 12/26/2018-continue pain management per Dr. Mckenzie goodman 12/28/2018-continue current pain management per hematology (4) Depression Is this a current diagnosis for this admission?: Yes Plan: 12/23/2018-continue to observe judiciously. Patient with narcotic use secondary to sickle cell crisis and anemia. 12/24/2018-continue to observe judiciously 12/25/2018-continue to observe 12/26/2018 continue to follow 12/28/2018-continue to follow (5) Pneumonia Qualifiers: Pneumonia type: due to unspecified organism Laterality: bilateral Lung location: lower lobe of lung Qualified Code(s): J18.1 - Lobar pneumonia, unspecified organism Is this a current diagnosis for this admission?: Yes Plan: Bibasilar atelectasis versus pneumonia noted on chest x-ray. He is noted to have right lower field crackles. He does complain of right posterior chest wall pain with inspiration/cough. Does have an occasional nonproductive cough. Blood cultures pending. Sputum cultures ordered; not yet obtained. Patient has been empirically started on azithromycin. Fortunately he remains afebrile with a normal WBC; if he clinically worsens, may need to escalate antibiotics for coverage of a healthcare associated pneumonia (vancomycin and cefepime). Continue supplemental oxygen as needed to maintain saturations. As needed nebulizer treatments. As needed Robitussin. Incentive spirometer to bedside. Encourage ambulation.. 12/28/2018-patient remains on AC device this time. Awaiting cultures. Continue supportive measures since probably early ambulation. - Time Time Spent with patient: 15-24 minutes - Inpatient Certification Based on my medical assessment, after consideration of the patient's comorbidities, presenting symptoms, or acuity I expect that the services needed warrant INPATIENT care.: Yes I certify that my determination is in accordance with my understanding of Medicare's requirements for reasonable and necessary INPATIENT services [42 CFR 412.3e].: Yes Medical Necessity: Other - IV fluids IV pain control
[2018-12-28] MEDS: FOLIC ACID 1 MG TABLET PO SCH (10:18)
[2018-12-28] MEDS: AMLODIPINE BESYLATE 10 MG TABLET PO SCH (10:18)
[2018-12-28] MEDS: HYDROXYUREA 500 MG CAPSULE PO SCH ×2 (10:18→18:15)
[2018-12-28] MEDS: AZITHROMYCIN 500 MG in DEXTROSE 5%-WATER 250 ML IV SCH (16:12)
[2018-12-28] MEDS: SENNOSIDES/DOCUSATE 8.6-50 MG 1 EACH TABLET PO PRN (20:25)
[2018-12-28] MEDS: DOCUSATE SODIUM 100 MG CAPSULE PO PRN (20:25)
[2018-12-29] MEDS: HYDROMORPHONE HCL INJ/PF 2 MG/ML AMPULE IV PRN ×11 (00:19→23:02)
[2018-12-29] MEDS: DIPHENHYDRAMINE HCL 50 MG/ML VIAL IV PRN ×5 (00:20→23:02)
[2018-12-29] MEDS: CLONIDINE HCL 0.2 MG TABLET PO SCH ×3 (02:38→18:53)
[2018-12-29] MEDS: NORMAL SALINE 1000 ML 1,000 ML IV PRN ×2 (04:38→14:51)
[2018-12-29 05:06] LABS: ABSOLUTE RETICS # 0.262 10^6/uL (0.028-0.122); HEMATOCRIT 22.1 % (37.9-51.0); MEAN CORPUSCULAR HEMOGLOBIN 31.5 pg (27.0-33.4); MEAN CORPUSCULAR HGB CONC 33.3 g/dL (32.0-36.0); MEAN CORPUSCULAR VOLUME 95 fl (80-97); PLATELET COUNT 376 10^3/uL (150-450); RED BLOOD COUNT 2.34 10^6/uL (4.35-5.55); RED CELL DISTRIBUTION WIDTH 21.7 % (11.5-14.0); RETICULOCYTE COUNT (AUTO) 11.18 % (0.66-2.85); WHITE BLOOD COUNT 6.8 10^3/uL (4.0-10.5)
[2018-12-29 05:09] LABS: HEMOGLOBIN 7.4 g/dL (13.5-17.0)
[2018-12-29] MEDS: METHADONE HCL 10 MG TABLET PO SCH ×3 (07:06→21:00)
--- NOTE | 2018-12-29 08:05 | PDOC PROGRESS REPORT ---
Subjective Progress Note for:: 12/29/18 Subjective:: Still w/ considerable pain, but slowly improving, we will plan to keep pain meds at same level today, and told pt that we will decrease by tomorrow and plan for dc hopefully in next 24-48 hrs. Reason For Visit: SICKLE CELL CRISIS Physical Exam Vital Signs: Temp Pulse Resp BP Pulse Ox 98.5 F 80 16 139/93 H 100 12/28/18 19:54 12/28/18 19:54 12/28/18 15:27 12/28/18 19:54 12/28/18 19:54 Intake & Output 12/28/18 12/29/18 12/30/18 06:59 06:59 06:59 Intake Total 4073 3330 Output Total 2350 1752 Balance 1723 1578 Weight 82.4 kg 86.4 kg General appearance: PRESENT: no acute distress, well-developed, well-nourished Head exam: PRESENT: atraumatic, normocephalic Eye exam: PRESENT: conjunctiva pink, EOMI, PERRLA. ABSENT: scleral icterus Ear exam: PRESENT: normal external ear exam Mouth exam: PRESENT: moist, tongue midline Neck exam: ABSENT: carotid bruit, JVD, lymphadenopathy, thyromegaly Respiratory exam: PRESENT: clear to auscultation anastasiya. ABSENT: rales, rhonchi, wheezes Cardiovascular exam: PRESENT: RRR. ABSENT: diastolic murmur, rubs, systolic murmur Pulses: PRESENT: normal dorsalis pedis pul Vascular exam: PRESENT: normal capillary refill GI/Abdominal exam: PRESENT: normal bowel sounds, soft. ABSENT: distended, guarding, mass, organolmegaly, rebound, tenderness Rectal exam: PRESENT: deferred Extremities exam: PRESENT: full ROM. ABSENT: calf tenderness, clubbing, pedal edema Neurological exam: PRESENT: alert, awake, oriented to person, oriented to place, oriented to time, oriented to situation, CN II-XII grossly intact. ABSENT: motor sensory deficit Psychiatric exam: PRESENT: appropriate affect, normal mood. ABSENT: homicidal ideation, suicidal ideation Skin exam: PRESENT: dry, intact, warm. ABSENT: cyanosis, rash Results Laboratory Results: 12/29/18 04:43 12/28/18 05:40 12/29/18 04:43 WBC 6.8 RBC 2.34 L Hgb 7.4 L Hct 22.1 L MCV 95 MCH 31.5 MCHC 33.3 RDW 21.7 H Plt Count 376 Retic Count (auto) 11.18 H 12/20/18 12/20/18 10:16 10:16 Troponin I < 0.012 NT-Pro-B Natriuret Pep 40 Impressions: Abdomen Ultrasound 12/20/18 11:29 IMPRESSION: Cholelithiasis. No ultrasound evidence of acute cholecystitis. Chest X-Ray 12/26/18 00:00 IMPRESSION: Slight increase in bibasilar airspace disease either atelectasis or pneumonia. Assessment & Plan - Diagnosis (1) Sickle cell crisis Is this a current diagnosis for this admission?: Yes Plan: Still severe, pt got up and moved for the first time in this hospitalization yesterday pm. But this crisis has been worse than prev ones, con't w/ current supportive measures w/ no change until tomorrow. 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
[2018-12-29] MEDS: AMLODIPINE BESYLATE 10 MG TABLET PO SCH (09:21)
[2018-12-29] MEDS: FOLIC ACID 1 MG TABLET PO SCH (09:27)
[2018-12-29] MEDS: HYDROXYUREA 500 MG CAPSULE PO SCH ×2 (09:28→18:53)
--- NOTE | 2018-12-29 10:23 | PDOC PROGRESS REPORT ---
Subjective Progress Note for:: 12/29/18 Subjective:: 12/23/2018-continued pain, not receive his home medications. 12/24/2018-continue pain 12/25/2018-pain continues 12/26/2018-continued pain 12/28/2018-pain improved this morning states he is feeling better 12/29/2018- Pain continues Reason For Visit: SICKLE CELL CRISIS Physical Exam Vital Signs: Temp Pulse Resp BP Pulse Ox 99.0 F 86 19 131/90 H 100 12/29/18 07:41 12/29/18 07:41 12/29/18 07:41 12/29/18 07:41 12/29/18 07:41 Intake & Output 12/28/18 12/29/18 12/30/18 06:59 06:59 06:59 Intake Total 4073 3330 Output Total 2350 1752 Balance 1723 1578 Weight 82.4 kg 86.4 kg General appearance: PRESENT: no acute distress, well-developed, well-nourished Head exam: PRESENT: atraumatic, normocephalic Eye exam: PRESENT: conjunctiva pink, EOMI, PERRLA. ABSENT: scleral icterus Ear exam: PRESENT: normal external ear exam Mouth exam: PRESENT: moist, tongue midline Neck exam: ABSENT: carotid bruit, JVD, lymphadenopathy, thyromegaly Respiratory exam: PRESENT: clear to auscultation anastasiya. ABSENT: rales, rhonchi, wheezes Cardiovascular exam: PRESENT: RRR. ABSENT: diastolic murmur, rubs, systolic murmur Pulses: PRESENT: normal dorsalis pedis pul Vascular exam: PRESENT: normal capillary refill GI/Abdominal exam: PRESENT: normal bowel sounds, soft. ABSENT: distended, guarding, mass, organolmegaly, rebound, tenderness Rectal exam: PRESENT: deferred Extremities exam: PRESENT: full ROM. ABSENT: calf tenderness, clubbing, pedal edema Neurological exam: PRESENT: alert, awake, oriented to person, oriented to place, oriented to time, oriented to situation, CN II-XII grossly intact. ABSENT: motor sensory deficit Psychiatric exam: PRESENT: appropriate affect, normal mood. ABSENT: homicidal ideation, suicidal ideation Skin exam: PRESENT: dry, intact, warm. ABSENT: cyanosis, rash Results Laboratory Results: 12/29/18 04:43 12/28/18 05:40 12/29/18 04:43 WBC 6.8 RBC 2.34 L Hgb 7.4 L Hct 22.1 L MCV 95 MCH 31.5 MCHC 33.3 RDW 21.7 H Plt Count 376 Retic Count (auto) 11.18 H 12/20/18 12/20/18 10:16 10:16 Troponin I < 0.012 NT-Pro-B Natriuret Pep 40 Impressions: Abdomen Ultrasound 12/20/18 11:29 IMPRESSION: Cholelithiasis. No ultrasound evidence of acute cholecystitis. Chest X-Ray 12/26/18 00:00 IMPRESSION: Slight increase in bibasilar airspace disease either atelectasis or pneumonia. Assessment and Plan - Diagnosis (1) Sickle cell crisis Is this a current diagnosis for this admission?: Yes Plan: Patient is admitted to the medical floor. Continue IV fluids. Continue supplemental oxygen. Continue home dose hydroxyurea. Hematology is consulted; primary management per their expertise. We will defer pain medications, adjuncts (baclofen, Sudafed, Benadryl, etc.) to hematology. Encourage nonpharmacological interventions (oxygen, position changing, heating pad, ambulation). 12/28/2018-continue IV fluids, hydroxyurea and pain management per hematology. Will repeat CBC and reticular site count in a.m. 12/29/2018-Continue IV fluids, hydroxyurea and pain control. 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 Continue follow daily CBCs 12/24/2018-stable repeat CBC and reticulocyte count a.m. 12/25/2018-hemoglobin 6.5 this a.m. Reticular site count down to 6. Will defer transfusions to Dr. Mckenzie goodman. 12/26/2018-improved today hemoglobin 6.9. Repeat CBC and reticular site count in the morning. 12/28/2018-stable continue to follow daily CBCs 12/29/2018-stable continue daily CBCs (3) Pain Is this a current diagnosis for this admission?: Yes Plan: 12/23/2018-patient continues verbalize extreme pain. His Dilaudid was increased by Dr. Mckenzie goodman today. I have restarted patient on his home medications methadone and oxycodone will follow. . 12/24/2018-patient states pain continues continue Dilaudid as well as home medications apparently prescribed. 12/25/2018-patient states pain continues despite 3 mg of Dilaudid every 2 hours and home medications. Pain management has been deferred to Dr. Mckenzie goodman 12/26/2018-continue pain management per Dr. Mckenzie goodman 12/28/2018-continue current pain management per hematology 12/29/2018-continue pain management per hematology (4) Depression Is this a current diagnosis for this admission?: Yes Plan: 12/23/2018-continue to observe judiciously. Patient with narcotic use secondary to sickle cell crisis and anemia. 12/24/2018-continue to observe judiciously 12/25/2018-continue to observe 12/26/2018 continue to follow 12/28/2018-continue to follow 12/29/2018-continue to follow (5) Pneumonia Qualifiers: Pneumonia type: due to unspecified organism Laterality: bilateral Lung location: lower lobe of lung Qualified Code(s): J18.1 - Lobar pneumonia, unspecified organism Is this a current diagnosis for this admission?: Yes Plan: Bibasilar atelectasis versus pneumonia noted on chest x-ray. He is noted to have right lower field crackles. He does complain of right posterior chest wall pain with inspiration/cough. Does have an occasional nonproductive cough. Blood cultures pending. Sputum cultures ordered; not yet obtained. Patient has been empirically started on azithromycin. Fortunately he remains afebrile with a normal WBC; if he clinically worsens, may need to escalate antibiotics for coverage of a healthcare associated pneumonia (vancomycin and cefepime). Continue supplemental oxygen as needed to maintain saturations. As needed nebulizer treatments. As needed Robitussin. Incentive spirometer to bedside. Encourage ambulation.. 12/28/2018-patient remains on IV antibiotics this time. Awaiting cultures. Continue supportive measures since probably early ambulation. 12/29/2018-patient remains on a azithromycin. Awaiting cultures. Patient is improving. Supportive measures. - Time Time Spent with patient: 15-24 minutes - Inpatient Certification Based on my medical assessment, after consideration of the patient's comorbidi ties, presenting symptoms, or acuity I expect that the services needed warrant INPATIENT care.: Yes I certify that my determination is in accordance with my understanding of Luis jones's requirements for reasonable and necessary INPATIENT services [42 CFR 412.3e].: Yes Medical Necessity: Other - IV antibiotics, IV pain control
[2018-12-29] MEDS: DOCUSATE SODIUM 100 MG CAPSULE PO PRN ×2 (14:51→23:02)
[2018-12-29] MEDS: SENNOSIDES/DOCUSATE 8.6-50 MG 1 EACH TABLET PO PRN ×2 (14:51→23:02)
[2018-12-29] MEDS: AZITHROMYCIN 500 MG in DEXTROSE 5%-WATER 250 ML IV SCH (16:45)
[2018-12-30] MEDS: CLONIDINE HCL 0.2 MG TABLET PO SCH ×3 (01:38→17:29)
[2018-12-30] MEDS: HYDROMORPHONE HCL INJ/PF 2 MG/ML AMPULE IV PRN ×10 (01:38→22:19)
[2018-12-30] MEDS: NORMAL SALINE 1000 ML 1,000 ML IV PRN ×2 (03:48→14:46)
[2018-12-30] MEDS: DIPHENHYDRAMINE HCL 50 MG/ML VIAL IV PRN ×5 (03:50→22:18)
[2018-12-30] MEDS: METHADONE HCL 10 MG TABLET PO SCH (05:07)
[2018-12-30 05:27] LABS: HEMATOCRIT 22.7 % (37.9-51.0); MEAN CORPUSCULAR HEMOGLOBIN 31.4 pg (27.0-33.4); MEAN CORPUSCULAR HGB CONC 33.6 g/dL (32.0-36.0); MEAN CORPUSCULAR VOLUME 93 fl (80-97); PLATELET COUNT 396 10^3/uL (150-450); RED BLOOD COUNT 2.43 10^6/uL (4.35-5.55); RED CELL DISTRIBUTION WIDTH 21.6 % (11.5-14.0); WHITE BLOOD COUNT 7.5 10^3/uL (4.0-10.5)
[2018-12-30 05:29] LABS: HEMOGLOBIN 7.6 g/dL (13.5-17.0)
[2018-12-30 05:42] LABS: ANION GAP 7 (5-19); BLOOD UREA NITROGEN 5 mg/dL (7-20); CALCIUM 8.8 mg/dL (8.4-10.2); CARBON DIOXIDE 32 mmol/L (22-30); CHLORIDE 100 mmol/L (98-107); GLUCOSE 108 mg/dL (75-110); POTASSIUM 4.1 mmol/L (3.6-5.0)
--- NOTE | 2018-12-30 08:24 | PDOC PROGRESS REPORT ---
Subjective Progress Note for:: 12/30/18 Subjective:: Still w/ severe pain this am. He tried to walk w. PT and had such severe pain that he was only able to take a few steps, he notes that he felt like his R leg was about to give way and he almost fell. It is noted on the white board that he is a 1 person assist currently. We discussed keeping pain management the same for the time being. Reason For Visit: SICKLE CELL CRISIS Physical Exam Vital Signs: Temp Pulse Resp BP Pulse Ox 98.5 F 73 15 131/76 H 100 12/29/18 23:54 12/29/18 23:54 12/29/18 23:54 12/29/18 23:54 12/29/18 23:54 Intake & Output 12/29/18 12/30/18 12/31/18 06:59 06:59 06:59 Intake Total 3330 3190 Output Total 1752 5000 Balance 1578 -1810 Weight 86.4 kg 86.2 kg General appearance: PRESENT: no acute distress, well-developed, well-nourished Head exam: PRESENT: atraumatic, normocephalic Eye exam: PRESENT: conjunctiva pink, EOMI, PERRLA. ABSENT: scleral icterus Ear exam: PRESENT: normal external ear exam Mouth exam: PRESENT: moist, tongue midline Neck exam: ABSENT: carotid bruit, JVD, lymphadenopathy, thyromegaly Respiratory exam: PRESENT: clear to auscultation anastasiya. ABSENT: rales, rhonchi, wheezes Cardiovascular exam: PRESENT: RRR. ABSENT: diastolic murmur, rubs, systolic murmur Pulses: PRESENT: normal dorsalis pedis pul Vascular exam: PRESENT: normal capillary refill GI/Abdominal exam: PRESENT: normal bowel sounds, soft. ABSENT: distended, guarding, mass, organolmegaly, rebound, tenderness Rectal exam: PRESENT: deferred Extremities exam: PRESENT: full ROM. ABSENT: calf tenderness, clubbing, pedal edema Neurological exam: PRESENT: alert, awake, oriented to person, oriented to place, oriented to time, oriented to situation, CN II-XII grossly intact. ABSENT: motor sensory deficit Psychiatric exam: PRESENT: appropriate affect, normal mood. ABSENT: homicidal ideation, suicidal ideation Skin exam: PRESENT: dry, intact, warm. ABSENT: cyanosis, rash Results Laboratory Results: 12/30/18 05:15 12/30/18 05:15 12/30/18 12/30/18 05:15 05:15 WBC 7.5 RBC 2.43 L Hgb 7.6 L Hct 22.7 L MCV 93 MCH 31.4 MCHC 33.6 RDW 21.6 H Plt Count 396 Sodium 139.2 Potassium 4.1 Chloride 100 Carbon Dioxide 32 H Anion Gap 7 BUN 5 L Creatinine 0.60 Est GFR ( Amer) > 60 Glucose 108 Calcium 8.8 12/20/18 12/20/18 10:16 10:16 Troponin I < 0.012 NT-Pro-B Natriuret Pep 40 Impressions: Abdomen Ultrasound 12/20/18 11:29 IMPRESSION: Cholelithiasis. No ultrasound evidence of acute cholecystitis. Chest X-Ray 12/26/18 00:00 IMPRESSION: Slight increase in bibasilar airspace disease either atelectasis or pneumonia. Assessment & Plan - Diagnosis (1) Sickle cell crisis Is this a current diagnosis for this admission?: Yes Plan: Still severe, pt unable to walk w/out assist 2nd to pain. Told pt to get up again w/PT and nursing help today. 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
[2018-12-30] MEDS: HYDROXYUREA 500 MG CAPSULE PO SCH ×2 (10:32→17:30)
[2018-12-30] MEDS: AMLODIPINE BESYLATE 10 MG TABLET PO SCH (10:32)
[2018-12-30] MEDS: FOLIC ACID 1 MG TABLET PO SCH (10:32)
[2018-12-30 12:17] LABS: ALBUMIN 3.5 g/dL (3.5-5.0); ALKALINE PHOSPHATASE 211 U/L (38-126); ASPARTATE AMINO TRANSFERASE 50 U/L (17-59); BILIRUBIN,DIRECT 0.2 mg/dL (0.0-0.4); BILIRUBIN,TOTAL 0.9 mg/dL (0.2-1.3); TOTAL PROTEIN 7.5 g/dL (6.3-8.2)
[2018-12-30] MEDS: AZITHROMYCIN 500 MG in DEXTROSE 5%-WATER 250 ML IV SCH (15:58)
--- NOTE | 2018-12-30 16:51 | PDOC PROGRESS REPORT ---
Subjective Progress Note for:: 12/30/18 Subjective:: Patient is a 38-year-old male with sickle cell disease with prior frequent admissions due to sickle cell crisis. Patient was admitted for another acute sickle cell crisis. His morning, patient says that He continues to have leg and back pains. He says this has only slightly improved in the past few days. He says it does hurt to take a deep breath. Denies chest pain. Reason For Visit: SICKLE CELL CRISIS Physical Exam Vital Signs: Temp Pulse Resp BP Pulse Ox 98.5 F 83 16 134/86 H 100 12/30/18 11:27 12/30/18 11:27 12/30/18 11:27 12/30/18 11:27 12/30/18 11:27 Intake & Output 12/29/18 12/30/18 12/31/18 06:59 06:59 06:59 Intake Total 3330 3190 1118 Output Total 1752 5000 1000 Balance 1578 -1810 118 Weight 190 lb 7.67 oz 190 lb 0.615 oz General appearance: PRESENT: no acute distress, well-developed, well-nourished Head exam: PRESENT: atraumatic, normocephalic Eye exam: PRESENT: conjunctiva pink, EOMI, PERRLA. ABSENT: scleral icterus Ear exam: PRESENT: normal external ear exam Mouth exam: PRESENT: moist, tongue midline Neck exam: ABSENT: carotid bruit, JVD, lymphadenopathy, thyromegaly Respiratory exam: PRESENT: clear to auscultation anastasiya. ABSENT: rales, rhonchi, wheezes Cardiovascular exam: PRESENT: RRR. ABSENT: diastolic murmur, rubs, systolic murmur Pulses: PRESENT: normal dorsalis pedis pul GI/Abdominal exam: PRESENT: normal bowel sounds, soft. ABSENT: distended, guarding, mass, organolmegaly, rebound, tenderness Rectal exam: PRESENT: deferred Neurological exam: PRESENT: alert, awake, oriented to person, oriented to place, oriented to time, oriented to situation, CN II-XII grossly intact. ABSENT: motor sensory deficit Results Laboratory Results: 12/30/18 05:15 12/30/18 05:15 12/30/18 12/30/18 12/30/18 05:15 05:15 11:47 WBC 7.5 RBC 2.43 L Hgb 7.6 L Hct 22.7 L MCV 93 MCH 31.4 MCHC 33.6 RDW 21.6 H Plt Count 396 Sodium 139.2 Potassium 4.1 Chloride 100 Carbon Dioxide 32 H Anion Gap 7 BUN 5 L Creatinine 0.60 Est GFR ( Amer) > 60 Glucose 108 Calcium 8.8 Total Bilirubin 0.9 AST 50 Alkaline Phosphatase 211 H Total Protein 7.5 Albumin 3.5 12/20/18 12/20/18 10:16 10:16 Troponin I < 0.012 NT-Pro-B Natriuret Pep 40 Impressions: Abdomen Ultrasound 12/20/18 11:29 IMPRESSION: Cholelithiasis. No ultrasound evidence of acute cholecystitis. Chest X-Ray 12/26/18 00:00 IMPRESSION: Slight increase in bibasilar airspace disease either atelectasis or pneumonia. Assessment and Plan - Diagnosis (1) Sickle cell crisis Is this a current diagnosis for this admission?: Yes Plan: Primarily being managed by hematology. Currently on Dilaudid for pain. Continue IV fluids. Continue hydroxyurea. Continue supplemental oxygen. Will check LDH and will recheck and bilirubin levels. (2) Hypertension Is this a current diagnosis for this admission?: Yes Plan: Continue amlodipine and clonidine.
[2018-12-31] MEDS: HYDROMORPHONE HCL INJ/PF 2 MG/ML AMPULE IV PRN ×11 (00:25→23:55)
[2018-12-31] MEDS: DIPHENHYDRAMINE HCL 50 MG/ML VIAL IV PRN ×5 (02:29→23:56)
[2018-12-31] MEDS: NORMAL SALINE 1000 ML 1,000 ML IV PRN ×2 (02:29→12:13)
[2018-12-31] MEDS: CLONIDINE HCL 0.2 MG TABLET PO SCH ×3 (02:29→17:07)
--- NOTE | 2018-12-31 08:10 | PDOC PROGRESS REPORT ---
Subjective Progress Note for:: 12/31/18 Subjective:: Patient still in a lot of pain, feeling overall chest pain and tightness, bilateral leg pain, still difficult to walk and breathe. If he lays still he does not have as severe pain and it is manageable. Of note hospitalist team did send LFTs and LDH and alk phos is elevated consistent with increased bone turnover and hemolysis from continued crisis. Reason For Visit: SICKLE CELL CRISIS Physical Exam Vital Signs: Temp Pulse Resp BP Pulse Ox 98.7 F 77 18 140/83 H 98 12/31/18 00:00 12/31/18 00:00 12/31/18 00:00 12/31/18 00:00 12/31/18 00:00 Intake & Output 12/30/18 12/31/18 01/01/19 06:59 06:59 06:59 Intake Total 3190 2486 Output Total 5000 1700 Balance -1810 786 Weight 86.2 kg 86.5 kg General appearance: PRESENT: no acute distress, well-developed, well-nourished Head exam: PRESENT: atraumatic, normocephalic Eye exam: PRESENT: conjunctiva pink, EOMI, PERRLA. ABSENT: scleral icterus Ear exam: PRESENT: normal external ear exam Mouth exam: PRESENT: moist, tongue midline Neck exam: ABSENT: carotid bruit, JVD, lymphadenopathy, thyromegaly Respiratory exam: PRESENT: clear to auscultation anastasiya. ABSENT: rales, rhonchi, wheezes Cardiovascular exam: PRESENT: RRR. ABSENT: diastolic murmur, rubs, systolic murmur Pulses: PRESENT: normal dorsalis pedis pul Vascular exam: PRESENT: normal capillary refill GI/Abdominal exam: PRESENT: normal bowel sounds, soft. ABSENT: distended, guarding, mass, organolmegaly, rebound, tenderness Rectal exam: PRESENT: deferred Extremities exam: PRESENT: full ROM. ABSENT: calf tenderness, clubbing, pedal edema Neurological exam: PRESENT: alert, awake, oriented to person, oriented to place, oriented to time, oriented to situation, CN II-XII grossly intact. ABSENT: motor sensory deficit Psychiatric exam: PRESENT: appropriate affect, normal mood. ABSENT: homicidal ideation, suicidal ideation Skin exam: PRESENT: dry, intact, warm. ABSENT: cyanosis, rash Results Laboratory Results: 12/30/18 05:15 09/10/19 05:15 12/30/18 11:47 Total Bilirubin 0.9 AST 50 Alkaline Phosphatase 211 H Total Protein 7.5 Albumin 3.5 12/20/18 12/20/18 10:16 10:16 Troponin I < 0.012 NT-Pro-B Natriuret Pep 40 Impressions: Abdomen Ultrasound 12/20/18 11:29 IMPRESSION: Cholelithiasis. No ultrasound evidence of acute cholecystitis. Chest X-Ray 12/26/18 00:00 IMPRESSION: Slight increase in bibasilar airspace disease either atelectasis or pneumonia. 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
[2018-12-31] MEDS: AMLODIPINE BESYLATE 10 MG TABLET PO SCH (09:12)
[2018-12-31] MEDS: DOCUSATE SODIUM 100 MG CAPSULE PO PRN ×2 (09:12→21:50)
[2018-12-31] MEDS: FOLIC ACID 1 MG TABLET PO SCH (09:12)
[2018-12-31] MEDS: SENNOSIDES/DOCUSATE 8.6-50 MG 1 EACH TABLET PO PRN ×2 (09:12→21:51)
[2018-12-31] MEDS: HYDROXYUREA 500 MG CAPSULE PO SCH ×2 (09:14→17:07)
--- NOTE | 2018-12-31 14:05 | RADIOLOGY REPORT (SQ) ---
EXAM DESCRIPTION: CT CHEST WITHOUT COMPLETED DATE/TIME: 12/31/2018 1:32 pm REASON FOR STUDY: further assess lung infiltrates COMPARISON: AP view of the chest from 12/26/2018 TECHNIQUE: CT scan performed of the chest without intravenous contrast. Images reviewed with lung, soft tissue and bone windows. Reconstructed coronal and sagittal MPR images reviewed. All images st ored on PACS. All CT scanners at this facility use dose modulation, iterative reconstruction, and/or weight based d osing when appropriate to reduce radiation dose to as low as reasonably achievable (ALARA). [facility]: Dose Right [facility]: CareDose [facility]: Dose Right [facility]: Teradose 4D [facility]: [employer] RADIATION DOSE: CT Rad equipment meets quality standard of care and radiation dose reduction techniq ues were employed. CTDIvol: 5.2 mGy. DLP: 218 mGy-cm. mGy. LIMITATIONS: No technical limitations. FINDINGS: LUNGS AND PLEURA: The trachea and main bronchi are patent. There are areas of alveolar co nsolidations with interspersed bronchograms in the lingula and left lower lobe; and in the right midd le and right lower lobes there are subpleural opacities associated with adjacent pleural thickening - these findings could represent manifestations of an acute chest syndrome in the setting of sickle ce ll disease. In contradistinction, the areas of septal thickening in the right middle and right lower lobes appear chronic. There is no traction bronchiectasis or pneumothorax. HILAR AND MEDIASTINAL STRUCTURES: There is no enlarged mediastinal adenopathy. Evaluation of the hil a for adenopathy is limited due to the absence of intravenous contrast. HEART AND VASCULAR STRUCTURES: The tip of the left sided single-lumen port projects within the SVC. The heart is enlarged. There is no pericardial effusion or calcification of the coronary arteries. The thoracic aorta is normal in caliber. UPPER ABDOMEN: Atrophic hyperdense spleen and hypodense lesion in the anterolateral aspect of the lef t upper pole. THYROID AND OTHER SOFT TISSUES: No mass or asymmetry. BONES: No acute findings. HARDWARE: As above. OTHER: Bilateral gynecomastia. IMPRESSION: The areas of alveolar consolidation with interspersed bronchograms in the lingula and le ft lower lobe, in the subpleural opacities associated with adjacent pleural thickening in the right m iddle and right lower lobes could represent the manifestations of acute chest syndrome in the setting of sickle cell disease. In contradistinction, the areas of septal thickening in the right middle an d right lower lobe superior chronic. TECHNICAL DOCUMENTATION: JOB ID: [id number] Quality ID # [id number]: Final reports with documentation of one or more dose reduction techniques (e.g., Au tomated exposure control, adjustment of the mA and/or kV according to patient size, use of iterative reconstruction technique) 2010 [employer]- All Rights Reserved Reading location - IP/workstation name: [email or web address]
--- NOTE | 2018-12-31 16:09 | PDOC PROGRESS REPORT ---
Subjective Progress Note for:: 12/31/18 Subjective:: Patient is a 38-year-old male with sickle cell disease with prior frequent admissions due to sickle cell crisis. Patient was admitted for another acute sickle cell crisis. His morning, patient says that 12/30: He continues to have leg and back pains. He says this has only slightly improved in the past few days. He says it does hurt to take a deep breath. Denies chest pain. 12/31: Acute event overnight. He says there is no significant improvement from his pains from yesterday. He refused a chest CT yesterday. Discussed in length and strongly recommend a chest CT to further elucidate and differentiate if the chest x-ray findings are more consistent with a pneumonia, fluid overload or possible acute chest syndrome from the sickle cell. He eventually agreed to try going for the CT scan. Reason For Visit: SICKLE CELL CRISIS Physical Exam Vital Signs: Temp Pulse Resp BP Pulse Ox 98.3 F 88 17 138/77 H 98 12/31/18 11:36 12/31/18 11:36 12/31/18 11:36 12/31/18 11:36 12/31/18 11:36 Intake & Output 12/30/18 12/31/18 01/01/19 06:59 06:59 06:59 Intake Total 3190 2486 1213 Output Total 5000 1700 800 Balance -1810 786 413 Weight 190 lb 0.615 oz 190 lb 11.198 oz General appearance: PRESENT: no acute distress, well-developed, well-nourished Head exam: PRESENT: atraumatic, normocephalic Eye exam: PRESENT: conjunctiva pink, EOMI, PERRLA. ABSENT: scleral icterus Ear exam: PRESENT: normal external ear exam Mouth exam: PRESENT: moist, tongue midline Neck exam: ABSENT: carotid bruit, JVD, lymphadenopathy, thyromegaly Respiratory exam: PRESENT: clear to auscultation anastasiya. ABSENT: rales, rhonchi, wheezes Cardiovascular exam: PRESENT: RRR. ABSENT: diastolic murmur, rubs, systolic murmur Pulses: PRESENT: normal dorsalis pedis pul GI/Abdominal exam: PRESENT: normal bowel sounds, soft. ABSENT: distended, guarding, mass, organolmegaly, rebound, tenderness Rectal exam: PRESENT: deferred Extremities exam: PRESENT: full ROM. ABSENT: calf tenderness, clubbing, pedal edema Neurological exam: PRESENT: alert, awake, oriented to person, oriented to place, oriented to time, oriented to situation, CN II-XII grossly intact. ABSENT: motor sensory deficit Results Laboratory Results: 12/30/18 05:15 12/30/18 05:15 12/26/18 14:30 Blood Blood Culture - Final NO GROWTH IN 5 DAYS 12/26/18 14:35 Blood Blood Culture - Final NO GROWTH IN 5 DAYS 12/20/18 12/20/18 10:16 10:16 Troponin I < 0.012 NT-Pro-B Natriuret Pep 40 Impressions: Abdomen Ultrasound 12/20/18 11:29 IMPRESSION: Cholelithiasis. No ultrasound evidence of acute cholecystitis. Chest X-Ray 12/26/18 00:00 IMPRESSION: Slight increase in bibasilar airspace disease either atelectasis or pneumonia. Chest CT 12/31/18 11:06 IMPRESSION: The areas of alveolar consolidation with interspersed bronchograms in the lingula and left lower lobe, in the subpleural opacities associated with adjacent pleural thickening in the right middle and right lower lobes could represent the manifestations of acute chest syndrome in the setting of sickle cell disease. In contradistinction, the areas of septal thickening in the right middle and right lower lobe superior chronic. Assessment and Plan - Diagnosis (1) Sickle cell crisis Is this a current diagnosis for this admission?: Yes Plan: 12/30: Primarily being managed by hematology. Currently on Dilaudid for pain. Continue IV fluids. Continue hydroxyurea. Continue supplemental oxygen. Will check LDH and will recheck and bilirubin levels. 12/31: Will pursue chest CT. (2) Hypertension Is this a current diagnosis for this admission?: Yes Plan: Continue amlodipine and clonidine. - Time Time Spent with patient: 25-34 minutes
[2018-12-31] MEDS: AZITHROMYCIN 500 MG in DEXTROSE 5%-WATER 250 ML IV SCH (16:47)
[2019-01-01] MEDS: NORMAL SALINE 1000 ML 1,000 ML IV PRN ×3 (01:20→22:43)
[2019-01-01] MEDS: CLONIDINE HCL 0.2 MG TABLET PO SCH ×3 (02:12→18:31)
[2019-01-01] MEDS: HYDROMORPHONE HCL INJ/PF 2 MG/ML AMPULE IV PRN ×9 (02:12→22:41)
[2019-01-01] MEDS: DIPHENHYDRAMINE HCL 50 MG/ML VIAL IV PRN ×3 (04:24→22:41)
[2019-01-01 05:20] LABS: ABSOLUTE RETICS # 0.238 10^6/uL (0.028-0.122); HEMATOCRIT 24.6 % (37.9-51.0); HEMOGLOBIN 8.3 g/dL (13.5-17.0); MEAN CORPUSCULAR HEMOGLOBIN 31.4 pg (27.0-33.4); MEAN CORPUSCULAR HGB CONC 33.7 g/dL (32.0-36.0); MEAN CORPUSCULAR VOLUME 93 fl (80-97); PLATELET COUNT 462 10^3/uL (150-450); RED BLOOD COUNT 2.65 10^6/uL (4.35-5.55); RED CELL DISTRIBUTION WIDTH 22.1 % (11.5-14.0); RETICULOCYTE COUNT (AUTO) 8.99 % (0.66-2.85); WHITE BLOOD COUNT 6.4 10^3/uL (4.0-10.5)
[2019-01-01 05:32] LABS: ALBUMIN 3.6 g/dL (3.5-5.0); ALKALINE PHOSPHATASE 191 U/L (38-126); ANION GAP 6 (5-19); ASPARTATE AMINO TRANSFERASE 41 U/L (17-59); BILIRUBIN,DIRECT 0.3 mg/dL (0.0-0.4); BILIRUBIN,TOTAL 0.8 mg/dL (0.2-1.3); BLOOD UREA NITROGEN 6 mg/dL (7-20); CALCIUM 9.4 mg/dL (8.4-10.2); CARBON DIOXIDE 33 mmol/L (22-30); CHLORIDE 101 mmol/L (98-107); GLUCOSE 91 mg/dL (75-110); POTASSIUM 4.6 mmol/L (3.6-5.0); TOTAL PROTEIN 7.7 g/dL (6.3-8.2)
[2019-01-01 05:45] LABS: ABSOLUTE LYMPHOCYTES# (MANUAL) 2.2 10^3/uL (0.5-4.7); ABSOLUTE MONOCYTES # (MANUAL) 0.6 10^3/uL (0.1-1.4); BASOPHILS % (MANUAL) 0 % (0-2); EOSINOPHILS % (MANUAL) 0 % (0-6); LYMPHOCYTES % (MANUAL) 35 % (13-45); MONOCYTES % (MANUAL) 10 % (3-13); NUCLEATED RED BLOOD CELLS 3 /100 WBC (0); SEGMENTED NEUTROPHILS % (MAN) 55 % (42-78); TOTAL CELLS COUNTED 100
[2019-01-01 05:47] LABS: ANISOCYTOSIS 3+; OVALOCYTES SLIGHT; TARGET CELLS SLIGHT; TEAR DROP CELLS SLIGHT; TOXIC VACUOLATION PRESENT
[2019-01-01 05:48] LABS: HYPOCHROMASIA SLIGHT; PLATELET COMMENT INCREASED; POIKILOCYTOSIS SLIGHT; POLYCHROMASIA 1+
--- NOTE | 2019-01-01 08:19 | PDOC PROGRESS REPORT ---
Subjective Progress Note for:: 01/01/19 Subjective:: Patient still with considerable chest pain, shortness of breath, but O2 status is stable on [address] of the chest done yesterday which indicated bilateral opacities, concerning for acute chest syndrome. Reason For Visit: SICKLE CELL CRISIS Physical Exam Vital Signs: Temp Pulse Resp BP Pulse Ox 98.4 F 81 16 126/87 H 98 01/01/19 00:00 01/01/19 00:00 01/01/19 00:00 01/01/19 00:00 01/01/19 00:00 Intake & Output 12/31/18 01/01/19 01/02/19 06:59 06:59 06:59 Intake Total 2486 2943 Output Total 1700 4500 Balance 786 -1557 Weight 86.5 kg 86.5 kg General appearance: PRESENT: no acute distress, well-developed, well-nourished Head exam: PRESENT: atraumatic, normocephalic Eye exam: PRESENT: conjunctiva pink, EOMI, PERRLA. ABSENT: scleral icterus Ear exam: PRESENT: normal external ear exam Mouth exam: PRESENT: moist, tongue midline Neck exam: ABSENT: carotid bruit, JVD, lymphadenopathy, thyromegaly Respiratory exam: PRESENT: clear to auscultation anastasiya. ABSENT: rales, rhonchi, wheezes Cardiovascular exam: PRESENT: RRR. ABSENT: diastolic murmur, rubs, systolic murmur Pulses: PRESENT: normal dorsalis pedis pul Vascular exam: PRESENT: normal capillary refill GI/Abdominal exam: PRESENT: normal bowel sounds, soft. ABSENT: distended, guarding, mass, organolmegaly, rebound, tenderness Rectal exam: PRESENT: deferred Extremities exam: PRESENT: full ROM. ABSENT: calf tenderness, clubbing, pedal edema Neurological exam: PRESENT: alert, awake, oriented to person, oriented to place, oriented to time, oriented to situation, CN II-XII grossly intact. ABSENT: motor sensory deficit Psychiatric exam: PRESENT: appropriate affect, normal mood. ABSENT: homicidal ideation, suicidal ideation Skin exam: PRESENT: dry, intact, warm. ABSENT: cyanosis, rash Results Laboratory Results: 01/01/19 04:20 01/01/19 04:20 01/01/19 01/01/19 04:20 04:20 WBC 6.4 RBC 2.65 L Hgb 8.3 L Hct 24.6 L MCV 93 MCH 31.4 MCHC 33.7 RDW 22.1 H Plt Count 462 H Seg Neutrophils % Not Reportable Retic Count (auto) 8.99 H Sodium 139.8 Potassium 4.6 Chloride 101 Carbon Dioxide 33 H Anion Gap 6 BUN 6 L Creatinine 0.61 Est GFR ( Amer) > 60 Glucose 91 Calcium 9.4 Total Bilirubin 0.8 AST 41 Alkaline Phosphatase 191 H Total Protein 7.7 Albumin 3.6 12/26/18 14:30 Blood Blood Culture - Final NO GROWTH IN 5 DAYS 12/26/18 14:35 Blood Blood Culture - Final NO GROWTH IN 5 DAYS 12/20/18 12/20/18 10:16 10:16 Troponin I < 0.012 NT-Pro-B Natriuret Pep 40 Impressions: Abdomen Ultrasound 12/20/18 11:29 IMPRESSION: Cholelithiasis. No ultrasound evidence of acute cholecystitis. Chest X-Ray 12/26/18 00:00 IMPRESSION: Slight increase in bibasilar airspace disease either atelectasis or pneumonia. Chest CT 12/31/18 11:06 IMPRESSION: The areas of alveolar consolidation with interspersed bronchograms in the lingula and left lower lobe, in the subpleural opacities associated with adjacent pleural thickening in the right middle and right lower lobes could represent the manifestations of acute chest syndrome in the setting of sickle cell disease. In contradistinction, the areas of septal thickening in the right middle and right lower lobe superior chronic. 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
[2019-01-01] MEDS: AMLODIPINE BESYLATE 10 MG TABLET PO SCH (09:14)
[2019-01-01] MEDS: FOLIC ACID 1 MG TABLET PO SCH (09:15)
[2019-01-01] MEDS: HYDROXYUREA 500 MG CAPSULE PO SCH ×2 (09:16→18:32)
--- NOTE | 2019-01-01 15:13 | PDOC PROGRESS REPORT ---
Subjective Progress Note for:: 01/01/19 Subjective:: Patient is a 38-year-old male with sickle cell disease with prior frequent admissions due to sickle cell crisis. Patient was admitted for another acute sickle cell crisis. His morning, patient says that 12/30: He continues to have leg and back pains. He says this has only slightly improved in the past few days. He says it does hurt to take a deep breath. Denies chest pain. 12/31: He says there is no significant improvement from his pains from yesterday. He refused a chest CT yesterday. Discussed in length and strongly recommend a chest CT to further elucidate and differentiate if the chest x-ray findings are more consistent with a pneumonia, fluid overload or possible acute chest syndrome from the sickle cell disease. He eventually agreed to try going for the CT scan. 01/01: No acute event overnight. Chest CT is more consistent with acute chest s yndrome. He says his pain is only slightly better today. Reason For Visit: SICKLE CELL CRISIS Physical Exam Vital Signs: Temp Pulse Resp BP Pulse Ox 98.1 F 72 19 126/82 H 62 L 01/01/19 11:01 01/01/19 11:01 01/01/19 11:01 01/01/19 11:01 01/01/19 11:01 Intake & Output 12/31/18 01/01/19 01/02/19 06:59 06:59 06:59 Intake Total 2486 2943 1643 Output Total 1700 4500 850 Balance 786 -1557 793 Weight 190 lb 11.198 oz 190 lb 11.198 oz General appearance: PRESENT: no acute distress, well-developed, well-nourished Head exam: PRESENT: atraumatic, normocephalic Eye exam: PRESENT: conjunctiva pink, EOMI, PERRLA. ABSENT: scleral icterus Ear exam: PRESENT: normal external ear exam Mouth exam: PRESENT: moist, tongue midline Neck exam: ABSENT: carotid bruit, JVD, lymphadenopathy, thyromegaly Respiratory exam: ABSENT: rales, wheezes Cardiovascular exam: PRESENT: RRR. ABSENT: diastolic murmur, rubs, systolic murmur Pulses: PRESENT: normal dorsalis pedis pul GI/Abdominal exam: PRESENT: normal bowel sounds, soft. ABSENT: distended, guarding, mass, organolmegaly, rebound, tenderness Rectal exam: PRESENT: deferred Extremities exam: PRESENT: full ROM. ABSENT: calf tenderness, clubbing, pedal edema Neurological exam: PRESENT: alert, awake, oriented to person, oriented to place, oriented to time, oriented to situation, CN II-XII grossly intact. ABSENT: motor sensory deficit Results Laboratory Results: 01/01/19 04:20 01/01/19 04:20 01/01/19 01/01/19 04:20 04:20 WBC 6.4 RBC 2.65 L Hgb 8.3 L Hct 24.6 L MCV 93 MCH 31.4 MCHC 33.7 RDW 22.1 H Plt Count 462 H Seg Neutrophils % Not Reportable Retic Count (auto) 8.99 H Sodium 139.8 Potassium 4.6 Chloride 101 Carbon Dioxide 33 H Anion Gap 6 BUN 6 L Creatinine 0.61 Est GFR ( Amer) > 60 Glucose 91 Calcium 9.4 Total Bilirubin 0.8 AST 41 Alkaline Phosphatase 191 H Total Protein 7.7 Albumin 3.6 12/26/18 14:30 Blood Blood Culture - Final NO GROWTH IN 5 DAYS 12/26/18 14:35 Blood Blood Culture - Final NO GROWTH IN 5 DAYS 12/20/18 12/20/18 10:16 10:16 Troponin I < 0.012 NT-Pro-B Natriuret Pep 40 Impressions: Abdomen Ultrasound 12/20/18 11:29 IMPRESSION: Cholelithiasis. No ultrasound evidence of acute cholecystitis. Chest X-Ray 12/26/18 00:00 IMPRESSION: Slight increase in bibasilar airspace disease either atelectasis or pneumonia. Chest CT 12/31/18 11:06 IMPRESSION: The areas of alveolar consolidation with interspersed bronchograms in the lingula and left lower lobe, in the subpleural opacities associated with adjacent pleural thickening in the right middle and right lower lobes could represent the manifestations of acute chest syndrome in the setting of sickle cell disease. In contradistinction, the areas of septal thickening in the right middle and right lower lobe superior chronic. Assessment and Plan - Diagnosis (1) Sickle cell crisis Is this a current diagnosis for this admission?: Yes Plan: 12/30: Primarily being managed by hematology. Currently on Dilaudid for pain. Continue IV fluids. Continue hydroxyurea. Continue supplemental oxygen. Will check LDH and will recheck and bilirubin levels. 12/31: Will pursue chest CT. 01/01: Chest CT is consistent with acute chest syndrome likely explaining his prolonged course and slow improvement. Saturating well on nasal cannula. His labs are improving. Reticulocyte count is trending down. Hemoglobin is stable and slightly up now. LDH is also trending down. Bilirubin has normalized. (2) Acute chest syndrome Is this a current diagnosis for this admission?: Yes (3) Hypertension Is this a current diagnosis for this admission?: Yes Plan: Continue amlodipine and clonidine.
[2019-01-01] MEDS: AZITHROMYCIN 500 MG in DEXTROSE 5%-WATER 250 ML IV SCH (16:24)
[2019-01-02] MEDS: HYDROMORPHONE HCL INJ/PF 2 MG/ML AMPULE IV PRN ×6 (00:52→22:41)
[2019-01-02] MEDS: CLONIDINE HCL 0.2 MG TABLET PO SCH ×3 (01:03→17:59)
[2019-01-02] MEDS: DIPHENHYDRAMINE HCL 50 MG/ML VIAL IV PRN ×4 (03:06→22:42)
--- NOTE | 2019-01-02 08:00 | PDOC PROGRESS REPORT ---
Subjective Progress Note for:: 01/02/19 Subjective:: Pt seems to be a bit better today, still finds it hard to move with out major pain but starting to be able to take deeper breaths. Reason For Visit: SICKLE CELL CRISIS Physical Exam Vital Signs: Temp Pulse Resp BP Pulse Ox 98.4 F 80 17 111/67 100 01/02/19 00:31 01/02/19 00:31 01/02/19 00:31 01/02/19 00:31 01/02/19 00:31 Intake & Output 01/01/19 01/02/19 01/03/19 06:59 06:59 06:59 Intake Total 2943 3355 Output Total 4500 1650 Balance -1557 1705 Weight 86.5 kg 82.7 kg General appearance: PRESENT: no acute distress, well-developed, well-nourished Head exam: PRESENT: atraumatic, normocephalic Eye exam: PRESENT: conjunctiva pink, EOMI, PERRLA. ABSENT: scleral icterus Ear exam: PRESENT: normal external ear exam Mouth exam: PRESENT: moist, tongue midline Neck exam: ABSENT: carotid bruit, JVD, lymphadenopathy, thyromegaly Respiratory exam: PRESENT: clear to auscultation naastasiya. ABSENT: rales, rhonchi, wheezes Cardiovascular exam: PRESENT: RRR. ABSENT: diastolic murmur, rubs, systolic murmur Pulses: PRESENT: normal dorsalis pedis pul Vascular exam: PRESENT: normal capillary refill GI/Abdominal exam: PRESENT: normal bowel sounds, soft. ABSENT: distended, guarding, mass, organolmegaly, rebound, tenderness Rectal exam: PRESENT: deferred Extremities exam: PRESENT: full ROM. ABSENT: calf tenderness, clubbing, pedal edema Neurological exam: PRESENT: alert, awake, oriented to person, oriented to place, oriented to time, oriented to situation, CN II-XII grossly intact. ABSENT: motor sensory deficit Psychiatric exam: PRESENT: appropriate affect, normal mood. ABSENT: homicidal ideation, suicidal ideation Skin exam: PRESENT: dry, intact, warm. ABSENT: cyanosis, rash Results Laboratory Results: 01/01/19 04:20 01/01/19 04:20 12/20/18 12/20/18 10:16 10:16 Troponin I < 0.012 NT-Pro-B Natriuret Pep 40 Impressions: Abdomen Ultrasound 12/20/18 11:29 IMPRESSION: Cholelithiasis. No ultrasound evidence of acute cholecystitis. Chest X-Ray 12/26/18 00:00 IMPRESSION: Slight increase in bibasilar airspace disease either atelectasis or pneumonia. Chest CT 12/31/18 11:06 IMPRESSION: The areas of alveolar consolidation with interspersed bronchograms in the lingula and left lower lobe, in the subpleural opacities associated with adjacent pleural thickening in the right middle and right lower lobes could represent the manifestations of acute chest syndrome in the setting of sickle cell disease. In contradistinction, the areas of septal thickening in the right middle and right lower lobe superior chronic. 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
[2019-01-02] MEDS: AMLODIPINE BESYLATE 10 MG TABLET PO SCH (10:02)
[2019-01-02] MEDS: FOLIC ACID 1 MG TABLET PO SCH (10:02)
[2019-01-02] MEDS ORDERED: HYDROMORPHONE HCL INJ/PF 2 MG/ML AMPULE IV PRN (12:12)
[2019-01-02] MEDS: HYDROXYUREA 500 MG CAPSULE PO SCH ×2 (13:34→17:59)
[2019-01-02] MEDS ORDERED: HYDROMORPHONE HCL INJ/PF 2 MG/ML AMPULE ONE (13:46)
[2019-01-02] MEDS ORDERED: HYDROMORPHONE HCL INJ/PF 2 MG/ML AMPULE IV ONE (16:30)
--- NOTE | 2019-01-02 16:32 | PDOC PROGRESS REPORT ---
Subjective Progress Note for:: 01/02/19 Subjective:: Patient is a 38-year-old male with sickle cell disease with prior frequent admissions due to sickle cell crisis. Patient was admitted for another acute sickle cell crisis. His morning, patient says that 12/30: He continues to have leg and back pains. He says this has only slightly improved in the past few days. He says it does hurt to take a deep breath. Denies chest pain. 12/31: He says there is no significant improvement from his pains from yesterday. He refused a chest CT yesterday. Discussed in length and strongly recommend a chest CT to further elucidate and differentiate if the chest x-ray findings are more consistent with a pneumonia, fluid overload or possible acute chest syndrome from the sickle cell disease. He eventually agreed to try going for the CT scan. 01/01: No acute event overnight. Chest CT is more consistent with acute chest s yndrome. He says his pain is only slightly better today. 01/02: No acute event overnight. This morning, he says that his pain has slightly improved today. Will attempt to decrease Dilaudid to q3 hourly. Reason For Visit: SICKLE CELL CRISIS Physical Exam Vital Signs: Temp Pulse Resp BP Pulse Ox 98.5 F 75 18 119/77 100 01/02/19 10:49 01/02/19 10:49 01/02/19 10:49 01/02/19 10:49 01/02/19 10:49 Intake & Output 01/01/19 01/02/19 01/03/19 06:59 06:59 06:59 Intake Total 2943 3355 473 Output Total 4500 1650 Balance -1557 1705 473 Weight 190 lb 11.198 oz 182 lb 5.156 oz General appearance: PRESENT: no acute distress, well-developed, well-nourished Head exam: PRESENT: atraumatic, normocephalic Eye exam: PRESENT: conjunctiva pink, EOMI, PERRLA. ABSENT: scleral icterus Ear exam: PRESENT: normal external ear exam Mouth exam: PRESENT: moist, tongue midline Neck exam: ABSENT: carotid bruit, JVD, lymphadenopathy, thyromegaly Respiratory exam: PRESENT: clear to auscultation anastasiya. ABSENT: rales, rhonchi, wheezes Cardiovascular exam: PRESENT: RRR. ABSENT: diastolic murmur, rubs, systolic murmur Pulses: PRESENT: normal dorsalis pedis pul GI/Abdominal exam: PRESENT: normal bowel sounds, soft. ABSENT: distended, guarding, mass, organolmegaly, rebound, tenderness Rectal exam: PRESENT: deferred Extremities exam: PRESENT: full ROM. ABSENT: calf tenderness, clubbing, pedal edema Neurological exam: PRESENT: alert, awake, oriented to person, oriented to place, oriented to time, oriented to situation, CN II-XII grossly intact. ABSENT: motor sensory deficit Results Laboratory Results: 01/01/19 04:20 01/01/19 04:20 12/20/18 12/20/18 10:16 10:16 Troponin I < 0.012 NT-Pro-B Natriuret Pep 40 Impressions: Abdomen Ultrasound 12/20/18 11:29 IMPRESSION: Cholelithiasis. No ultrasound evidence of acute cholecystitis. Chest X-Ray 12/26/18 00:00 IMPRESSION: Slight increase in bibasilar airspace disease either atelectasis or pneumonia. Chest CT 12/31/18 11:06 IMPRESSION: The areas of alveolar consolidation with interspersed bronchograms in the lingula and left lower lobe, in the subpleural opacities associated with adjacent pleural thickening in the right middle and right lower lobes could represent the manifestations of acute chest syndrome in the setting of sickle cell disease. In contradistinction, the areas of septal thickening in the right middle and right lower lobe superior chronic. Assessment and Plan - Diagnosis (1) Sickle cell crisis Is this a current diagnosis for this admission?: Yes Plan: 12/30: Primarily being managed by hematology. Currently on Dilaudid for pain. Continue IV fluids. Continue hydroxyurea. Continue supplemental oxygen. Will check LDH and will recheck and bilirubin levels. 12/31: Will pursue chest CT. 01/01: Chest CT is consistent with acute chest syndrome likely explaining his prolonged course and slow improvement. Saturating well on nasal cannula. His labs are improving. Reticulocyte count is trending down. Hemoglobin is stable and slightly up now. LDH is also trending down. Bilirubin has normalized. 01/02: Attempt decrease in IV pain meds and assess if he is able to tolerate it. (2) Acute chest syndrome Is this a current diagnosis for this admission?: Yes Plan: As per number 1. (3) Hypertension Is this a current diagnosis for this admission?: Yes Plan: Continue amlodipine and clonidine.
[2019-01-03] MEDS: NORMAL SALINE 1000 ML 1,000 ML IV PRN ×2 (00:39→21:40)
[2019-01-03] MEDS: HYDROMORPHONE HCL INJ/PF 2 MG/ML AMPULE IV PRN ×12 (00:41→23:53)
[2019-01-03] MEDS: DIPHENHYDRAMINE HCL 50 MG/ML VIAL IV PRN ×4 (02:43→21:40)
[2019-01-03] MEDS: CLONIDINE HCL 0.2 MG TABLET PO SCH ×3 (02:53→17:27)
[2019-01-03 06:37] LABS: ALBUMIN 3.1 g/dL (3.5-5.0); ALKALINE PHOSPHATASE 150 U/L (38-126); ANION GAP 7 (5-19); ASPARTATE AMINO TRANSFERASE 33 U/L (17-59); BILIRUBIN,DIRECT 0.2 mg/dL (0.0-0.4); BILIRUBIN,TOTAL 0.8 mg/dL (0.2-1.3); BLOOD UREA NITROGEN 5 mg/dL (7-20); CALCIUM 8.8 mg/dL (8.4-10.2); CARBON DIOXIDE 30 mmol/L (22-30); CHLORIDE 101 mmol/L (98-107); GLUCOSE 148 mg/dL (75-110); POTASSIUM 4.1 mmol/L (3.6-5.0); TOTAL PROTEIN 7.2 g/dL (6.3-8.2)
[2019-01-03 06:38] LABS: ABSOLUTE RETICS # 0.141 10^6/uL (0.028-0.122); HEMATOCRIT 22.1 % (37.9-51.0); MEAN CORPUSCULAR HEMOGLOBIN 31.1 pg (27.0-33.4); MEAN CORPUSCULAR HGB CONC 34.1 g/dL (32.0-36.0); MEAN CORPUSCULAR VOLUME 91 fl (80-97); PLATELET COUNT 445 10^3/uL (150-450); RED BLOOD COUNT 2.42 10^6/uL (4.35-5.55); RETICULOCYTE COUNT (AUTO) 5.81 % (0.66-2.85); WHITE BLOOD COUNT 5.8 10^3/uL (4.0-10.5)
[2019-01-03 07:15] LABS: ABSOLUTE LYMPHOCYTES# (MANUAL) 1.8 10^3/uL (0.5-4.7); ABSOLUTE MONOCYTES # (MANUAL) 0.5 10^3/uL (0.1-1.4); BASOPHILS % (MANUAL) 2 % (0-2); EOSINOPHILS % (MANUAL) 3 % (0-6); LYMPHOCYTES % (MANUAL) 31 % (13-45); MONOCYTES % (MANUAL) 9 % (3-13); SEGMENTED NEUTROPHILS % (MAN) 55 % (42-78); TOTAL CELLS COUNTED 100
[2019-01-03 07:17] LABS: ANISOCYTOSIS 3+; POIKILOCYTOSIS 2+; TOXIC GRANULATION SLIGHT
[2019-01-03 07:18] LABS: OVALOCYTES 2+; PLATELET COMMENT ADEQUATE; POLYCHROMASIA 1+; TARGET CELLS 1+; TEAR DROP CELLS 1+
[2019-01-03 07:20] LABS: HEMOGLOBIN 7.5 g/dL (13.5-17.0)
[2019-01-03] MEDS: FOLIC ACID 1 MG TABLET PO SCH (09:16)
[2019-01-03] MEDS: HYDROXYUREA 500 MG CAPSULE PO SCH ×2 (09:16→17:27)
[2019-01-03] MEDS ORDERED: HYDROMORPHONE HCL INJ/PF 2 MG/ML AMPULE IV PRN (10:47)
--- NOTE | 2019-01-03 11:30 | PDOC PROGRESS REPORT ---
Subjective Progress Note for:: 01/03/19 Subjective:: Pain is getting better, today discussed plan for changing the Dilaudid dosing to 2 mg IV every 2 hours for a pain scale of 1-3 and 3 mg for pain scale of 4-5. We made these changes. I have also asked nursing to take his oxygen off and see what his O2 level goes to and I have asked the patient to walk around the [place] to see how low his oxygen level gets. Reason For Visit: SICKLE CELL CRISIS Physical Exam Vital Signs: Temp Pulse Resp BP Pulse Ox 98.1 F 74 15 119/72 99 01/03/19 08:00 01/03/19 08:00 01/03/19 08:00 01/03/19 08:00 01/03/19 08:00 Intake & Output 01/02/19 01/03/19 01/04/19 06:59 06:59 06:59 Intake Total 3355 1853 Output Total 1650 850 Balance 1705 1003 Weight 82.7 kg 82.5 kg General appearance: PRESENT: no acute distress, well-developed, well-nourished Head exam: PRESENT: atraumatic, normocephalic Eye exam: PRESENT: conjunctiva pink, EOMI, PERRLA. ABSENT: scleral icterus Ear exam: PRESENT: normal external ear exam Mouth exam: PRESENT: moist, tongue midline Neck exam: ABSENT: carotid bruit, JVD, lymphadenopathy, thyromegaly Respiratory exam: PRESENT: clear to auscultation anastasiya. ABSENT: rales, rhonchi, wheezes Cardiovascular exam: PRESENT: RRR. ABSENT: diastolic murmur, rubs, systolic murmur Pulses: PRESENT: normal dorsalis pedis pul Vascular exam: PRESENT: normal capillary refill GI/Abdominal exam: PRESENT: normal bowel sounds, soft. ABSENT: distended, guarding, mass, organolmegaly, rebound, tenderness Rectal exam: PRESENT: deferred Extremities exam: PRESENT: full ROM. ABSENT: calf tenderness, clubbing, pedal edema Neurological exam: PRESENT: alert, awake, oriented to person, oriented to place, oriented to time, oriented to situation, CN II-XII grossly intact. ABSENT: motor sensory deficit Psychiatric exam: PRESENT: appropriate affect, normal mood. ABSENT: homicidal ideation, suicidal ideation Skin exam: PRESENT: dry, intact, warm. ABSENT: cyanosis, rash Results Laboratory Results: 01/03/19 04:50 01/03/19 04:50 01/03/19 01/03/19 04:50 04:50 WBC 5.8 RBC 2.42 L Hgb 7.5 L Hct 22.1 L MCV 91 MCH 31.1 MCHC 34.1 RDW 21.0 H Plt Count 445 Seg Neutrophils % Not Reportable Retic Count (auto) 5.81 H Sodium 138.0 Potassium 4.1 Chloride 101 Carbon Dioxide 30 Anion Gap 7 BUN 5 L Creatinine 0.55 Est GFR ( Amer) > 60 Glucose 148 H Calcium 8.8 Total Bilirubin 0.8 AST 33 Alkaline Phosphatase 150 H Total Protein 7.2 Albumin 3.1 L 12/20/18 12/20/18 10:16 10:16 Troponin I < 0.012 NT-Pro-B Natriuret Pep 40 Impressions: Abdomen Ultrasound 12/20/18 11:29 IMPRESSION: Cholelithiasis. No ultrasound evidence of acute cholecystitis. Chest X-Ray 12/26/18 00:00 IMPRESSION: Slight increase in bibasilar airspace disease either atelectasis or pneumonia. Chest CT 12/31/18 11:06 IMPRESSION: The areas of alveolar consolidation with interspersed bronchograms in the lingula and left lower lobe, in the subpleural opacities associated with adjacent pleural thickening in the right middle and right lower lobes could represent the manifestations of acute chest syndrome in the setting of sickle cell disease. In contradistinction, the areas of septal thickening in the right middle and right lower lobe superior chronic. 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
[2019-01-03] MEDS: AMLODIPINE BESYLATE 10 MG TABLET PO SCH (13:22)
--- NOTE | 2019-01-03 15:02 | PDOC PROGRESS REPORT ---
Subjective Progress Note for:: 01/03/19 Subjective:: Patient is a 38-year-old male with sickle cell disease with prior frequent admissions due to sickle cell crisis. Patient was admitted for another acute sickle cell crisis. His morning, patient says that 12/30: He continues to have leg and back pains. He says this has only slightly improved in the past few days. He says it does hurt to take a deep breath. Denies chest pain. 12/31: He says there is no significant improvement from his pains from yesterday. He refused a chest CT yesterday. Discussed in length and strongly recommend a chest CT to further elucidate and differentiate if the chest x-ray findings are more consistent with a pneumonia, fluid overload or possible acute chest syndrome from the sickle cell disease. He eventually agreed to try going for the CT scan. 01/01: No acute event overnight. Chest CT is more consistent with acute chest s yndrome. He says his pain is only slightly better today. 01/02: This morning, he says that his pain has slightly improved today. Will attempt to decrease Dilaudid to q3 hourly. 01/03: No acute event overnight. He says his pain is a little better this morning. Reason For Visit: SICKLE CELL CRISIS Physical Exam Vital Signs: Temp Pulse Resp BP Pulse Ox 97.7 F 78 15 127/83 H 99 01/03/19 12:00 01/03/19 12:00 01/03/19 12:00 01/03/19 12:00 01/03/19 12:00 Intake & Output 01/02/19 01/03/19 01/04/19 06:59 06:59 06:59 Intake Total 3355 1853 Output Total 1650 850 Balance 1705 1003 Weight 182 lb 5.156 oz 181 lb 14.102 oz General appearance: PRESENT: no acute distress, well-developed, well-nourished Head exam: PRESENT: atraumatic, normocephalic Eye exam: PRESENT: conjunctiva pink, EOMI, PERRLA. ABSENT: scleral icterus Ear exam: PRESENT: normal external ear exam Mouth exam: PRESENT: moist, tongue midline Neck exam: ABSENT: carotid bruit, JVD, lymphadenopathy, thyromegaly Respiratory exam: PRESENT: clear to auscultation anastasiya. ABSENT: rales, rhonchi, wheezes Cardiovascular exam: PRESENT: RRR. ABSENT: diastolic murmur, rubs, systolic murmur Pulses: PRESENT: normal dorsalis pedis pul GI/Abdominal exam: PRESENT: normal bowel sounds, soft. ABSENT: distended, guarding, mass, organolmegaly, rebound, tenderness Rectal exam: PRESENT: deferred Extremities exam: PRESENT: full ROM. ABSENT: calf tenderness, clubbing, pedal edema Neurological exam: PRESENT: alert, awake, oriented to person, oriented to place, oriented to time, oriented to situation, CN II-XII grossly intact. ABSENT: motor sensory deficit Results Laboratory Results: 01/03/19 04:50 01/03/19 04:50 01/03/19 01/03/19 04:50 04:50 WBC 5.8 RBC 2.42 L Hgb 7.5 L Hct 22.1 L MCV 91 MCH 31.1 MCHC 34.1 RDW 21.0 H Plt Count 445 Seg Neutrophils % Not Reportable Retic Count (auto) 5.81 H Sodium 138.0 Potassium 4.1 Chloride 101 Carbon Dioxide 30 Anion Gap 7 BUN 5 L Creatinine 0.55 Est GFR ( Amer) > 60 Glucose 148 H Calcium 8.8 Total Bilirubin 0.8 AST 33 Alkaline Phosphatase 150 H Total Protein 7.2 Albumin 3.1 L 12/20/18 12/20/18 10:16 10:16 Troponin I < 0.012 NT-Pro-B Natriuret Pep 40 Impressions: Abdomen Ultrasound 12/20/18 11:29 IMPRESSION: Cholelithiasis. No ultrasound evidence of acute cholecystitis. Chest X-Ray 12/26/18 00:00 IMPRESSION: Slight increase in bibasilar airspace disease either atelectasis or pneumonia. Chest CT 12/31/18 11:06 IMPRESSION: The areas of alveolar consolidation with interspersed bronchograms in the lingula and left lower lobe, in the subpleural opacities associated with adjacent pleural thickening in the right middle and right lower lobes could represent the manifestations of acute chest syndrome in the setting of sickle cell disease. In contradistinction, the areas of septal thickening in the right middle and right lower lobe superior chronic. Assessment and Plan - Diagnosis (1) Sickle cell crisis Is this a current diagnosis for this admission?: Yes Plan: 12/30: Primarily being managed by hematology. Currently on Dilaudid for pain. Continue IV fluids. Continue hydroxyurea. Continue supplemental oxygen. Will check LDH and will recheck and bilirubin levels. 12/31: Will pursue chest CT. 01/01: Chest CT is consistent with acute chest syndrome likely explaining his prolonged course and slow improvement. Saturating well on nasal cannula. His labs are improving. Reticulocyte count is trending down. Hemoglobin is stable and slightly up now. LDH is also trending down. Bilirubin has normalized. 01/02: Attempt decrease in IV pain meds and assess if he is able to tolerate it. 01/03: Hemoglobin slightly low from yesterday but has been more or less stable compared to the past few days. Other markers of hemolysis are trending down and suggest improvement. (2) Acute chest syndrome Is this a current diagnosis for this admission?: Yes Plan: As per number 1. (3) Hypertension Is this a current diagnosis for this admission?: Yes Plan: Continue amlodipine and clonidine. - Time Time Spent with patient: 25-34 minutes
[2019-01-04] MEDS: CLONIDINE HCL 0.2 MG TABLET PO SCH ×3 (02:06→18:01)
[2019-01-04] MEDS: DIPHENHYDRAMINE HCL 50 MG/ML VIAL IV PRN ×4 (02:06→21:10)
[2019-01-04] MEDS: HYDROMORPHONE HCL INJ/PF 2 MG/ML AMPULE IV PRN ×11 (02:06→23:17)
[2019-01-04 07:43] LABS: ABSOLUTE RETICS # 0.124 10^6/uL (0.028-0.122); HEMATOCRIT 22.2 % (37.9-51.0); MEAN CORPUSCULAR HEMOGLOBIN 30.6 pg (27.0-33.4); MEAN CORPUSCULAR HGB CONC 33.6 g/dL (32.0-36.0); MEAN CORPUSCULAR VOLUME 91 fl (80-97); PLATELET COUNT 468 10^3/uL (150-450); RED BLOOD COUNT 2.44 10^6/uL (4.35-5.55); RED CELL DISTRIBUTION WIDTH 21.4 % (11.5-14.0); RETICULOCYTE COUNT (AUTO) 5.09 % (0.66-2.85)
[2019-01-04 07:57] LABS: ALBUMIN 3.4 g/dL (3.5-5.0); ALKALINE PHOSPHATASE 139 U/L (38-126); ASPARTATE AMINO TRANSFERASE 34 U/L (17-59); BLOOD UREA NITROGEN 4 mg/dL (7-20); CALCIUM 9.1 mg/dL (8.4-10.2); CARBON DIOXIDE 32 mmol/L (22-30); CHLORIDE 103 mmol/L (98-107); GLUCOSE 98 mg/dL (75-110); HEMOGLOBIN 7.5 g/dL (13.5-17.0); POTASSIUM 4.4 mmol/L (3.6-5.0); TOTAL PROTEIN 7.5 g/dL (6.3-8.2)
[2019-01-04 08:00] LABS: ANION GAP 4 (5-19)
[2019-01-04 08:03] LABS: ABSOLUTE LYMPHOCYTES# (MANUAL) 1.6 10^3/uL (0.5-4.7); ABSOLUTE MONOCYTES # (MANUAL) 0.3 10^3/uL (0.1-1.4); BASOPHILS % (MANUAL) 1 % (0-2); EOSINOPHILS % (MANUAL) 0 % (0-6); LYMPHOCYTES % (MANUAL) 32 % (13-45); MONOCYTES % (MANUAL) 6 % (3-13); SEGMENTED NEUTROPHILS % (MAN) 61 % (42-78); TOTAL CELLS COUNTED 100
[2019-01-04 08:04] LABS: ANISOCYTOSIS 3+; OVALOCYTES SLIGHT; POIKILOCYTOSIS 1+; POLYCHROMASIA SLIGHT; SICKLE RED CELLS SLIGHT; TARGET CELLS SLIGHT
[2019-01-04 08:05] LABS: PLATELET COMMENT ADEQUATE
[2019-01-04] MEDS: NORMAL SALINE 1000 ML 1,000 ML IV PRN (08:24)
--- NOTE | 2019-01-04 10:20 | PDOC PROGRESS REPORT ---
Subjective Progress Note for:: 01/04/19 Subjective:: Doing better, discussed d/c home tomorrow, pt agreeable, will write for pain rx for d/c today Reason For Visit: SICKLE CELL CRISIS Physical Exam Vital Signs: Temp Pulse Resp BP Pulse Ox 98.3 F 85 17 120/74 95 01/04/19 08:17 01/04/19 08:17 01/04/19 08:17 01/04/19 08:17 01/04/19 08:17 Intake & Output 01/03/19 01/04/19 01/05/19 06:59 06:59 06:59 Intake Total 1853 2540 1000 Output Total 850 3350 Balance 1003 -810 1000 Weight 82.5 kg 82.9 kg General appearance: PRESENT: no acute distress, well-developed, well-nourished Head exam: PRESENT: atraumatic, normocephalic Eye exam: PRESENT: conjunctiva pink, EOMI, PERRLA. ABSENT: scleral icterus Ear exam: PRESENT: normal external ear exam Mouth exam: PRESENT: moist, tongue midline Neck exam: ABSENT: carotid bruit, JVD, lymphadenopathy, thyromegaly Respiratory exam: PRESENT: clear to auscultation anastasiya. ABSENT: rales, rhonchi, wheezes Cardiovascular exam: PRESENT: RRR. ABSENT: diastolic murmur, rubs, systolic murmur Pulses: PRESENT: normal dorsalis pedis pul Vascular exam: PRESENT: normal capillary refill GI/Abdominal exam: PRESENT: normal bowel sounds, soft. ABSENT: distended, guarding, mass, organolmegaly, rebound, tenderness Rectal exam: PRESENT: deferred Extremities exam: PRESENT: full ROM. ABSENT: calf tenderness, clubbing, pedal edema Neurological exam: PRESENT: alert, awake, oriented to person, oriented to place, oriented to time, oriented to situation, CN II-XII grossly intact. ABSENT: motor sensory deficit Psychiatric exam: PRESENT: appropriate affect, normal mood. ABSENT: homicidal ideation, suicidal ideation Skin exam: PRESENT: dry, intact, warm. ABSENT: cyanosis, rash Results Laboratory Results: 01/04/19 07:18 01/04/19 07:18 01/04/19 01/04/19 07:18 07:18 WBC 5.0 RBC 2.44 L Hgb 7.5 L Hct 22.2 L MCV 91 MCH 30.6 MCHC 33.6 RDW 21.4 H Plt Count 468 H Seg Neutrophils % Not Reportable Retic Count (auto) 5.09 H Sodium 139.0 Potassium 4.4 Chloride 103 Carbon Dioxide 32 H Anion Gap 4 L BUN 4 L Creatinine 0.57 Est GFR ( Amer) > 60 Glucose 98 Calcium 9.1 Total Bilirubin 1.0 AST 34 Alkaline Phosphatase 139 H Total Protein 7.5 Albumin 3.4 L 12/20/18 12/20/18 10:16 10:16 Troponin I < 0.012 NT-Pro-B Natriuret Pep 40 Impressions: Abdomen Ultrasound 12/20/18 11:29 IMPRESSION: Cholelithiasis. No ultrasound evidence of acute cholecystitis. Chest X-Ray 12/26/18 00:00 IMPRESSION: Slight increase in bibasilar airspace disease either atelectasis or pneumonia. Chest CT 12/31/18 11:06 IMPRESSION: The areas of alveolar consolidation with interspersed bronchograms in the lingula and left lower lobe, in the subpleural opacities associated with adjacent pleural thickening in the right middle and right lower lobes could represent the manifestations of acute chest syndrome in the setting of sickle cell disease. In contradistinction, the areas of septal thickening in the right middle and right lower lobe superior chronic. 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
[2019-01-04] MEDS: HYDROXYUREA 500 MG CAPSULE PO SCH ×2 (10:26→18:01)
[2019-01-04] MEDS: FOLIC ACID 1 MG TABLET PO SCH (10:26)
[2019-01-04] MEDS: AMLODIPINE BESYLATE 10 MG TABLET PO SCH (10:26)
[2019-01-04] MEDS: METHADONE HCL 10 MG TABLET PO SCH ×2 (14:33→21:10)
--- NOTE | 2019-01-04 16:14 | PDOC PROGRESS REPORT ---
Subjective Progress Note for:: 01/04/19 Subjective:: Patient is a 38-year-old male with sickle cell disease with prior frequent admissions due to sickle cell crisis. Patient was admitted for another acute sickle cell crisis. His morning, patient says that 12/30: He continues to have leg and back pains. He says this has only slightly improved in the past few days. He says it does hurt to take a deep breath. Denies chest pain. 12/31: He says there is no significant improvement from his pains from yesterday. He refused a chest CT yesterday. Discussed in length and strongly recommend a chest CT to further elucidate and differentiate if the chest x-ray findings are more consistent with a pneumonia, fluid overload or possible acute chest syndrome from the sickle cell disease. He eventually agreed to try going for the CT scan. 01/01: No acute event overnight. Chest CT is more consistent with acute chest s yndrome. He says his pain is only slightly better today. 01/02: This morning, he says that his pain has slightly improved today. Will attempt to decrease Dilaudid to q3 hourly. 01/03: He says his pain is a little better this morning. 01/04: No acute event overnight. He continues to have improvement in his pain. He ambulated the hallway on room air with no acute issue. Possible discharge in the next 24 hours. Reason For Visit: SICKLE CELL CRISIS Physical Exam Vital Signs: Temp Pulse Resp BP Pulse Ox 98.5 F 83 18 125/78 96 01/04/19 12:22 01/04/19 12:22 01/04/19 12:22 01/04/19 12:22 01/04/19 12:22 Intake & Output 01/03/19 01/04/19 01/05/19 06:59 06:59 06:59 Intake Total 1853 2540 1000 Output Total 850 3350 Balance 1003 -810 1000 Weight 181 lb 14.102 oz 182 lb 12.211 oz General appearance: PRESENT: no acute distress, well-developed, well-nourished Head exam: PRESENT: atraumatic, normocephalic Eye exam: PRESENT: conjunctiva pink, EOMI, PERRLA. ABSENT: scleral icterus Ear exam: PRESENT: normal external ear exam Mouth exam: PRESENT: moist, tongue midline Neck exam: ABSENT: carotid bruit, JVD, lymphadenopathy, thyromegaly Respiratory exam: PRESENT: clear to auscultation anastasiya. ABSENT: rales, rhonchi, wheezes Cardiovascular exam: PRESENT: RRR. ABSENT: diastolic murmur, rubs, systolic murmur Pulses: PRESENT: normal dorsalis pedis pul GI/Abdominal exam: PRESENT: normal bowel sounds, soft. ABSENT: distended, guarding, mass, organolmegaly, rebound, tenderness Rectal exam: PRESENT: deferred Extremities exam: PRESENT: full ROM. ABSENT: calf tenderness, clubbing, pedal edema Neurological exam: PRESENT: alert, awake, oriented to person, oriented to place, oriented to time, oriented to situation, CN II-XII grossly intact. ABSENT: motor sensory deficit Results Laboratory Results: 01/04/19 07:18 01/04/19 07:18 01/04/19 01/04/19 07:18 07:18 WBC 5.0 RBC 2.44 L Hgb 7.5 L Hct 22.2 L MCV 91 MCH 30.6 MCHC 33.6 RDW 21.4 H Plt Count 468 H Seg Neutrophils % Not Reportable Retic Count (auto) 5.09 H Sodium 139.0 Potassium 4.4 Chloride 103 Carbon Dioxide 32 H Anion Gap 4 L BUN 4 L Creatinine 0.57 Est GFR ( Amer) > 60 Glucose 98 Calcium 9.1 Total Bilirubin 1.0 AST 34 Alkaline Phosphatase 139 H Total Protein 7.5 Albumin 3.4 L 12/20/18 12/20/18 10:16 10:16 Troponin I < 0.012 NT-Pro-B Natriuret Pep 40 Impressions: Abdomen Ultrasound 12/20/18 11:29 IMPRESSION: Cholelithiasis. No ultrasound evidence of acute cholecystitis. Chest X-Ray 12/26/18 00:00 IMPRESSION: Slight increase in bibasilar airspace disease either atelectasis or pneumonia. Chest CT 12/31/18 11:06 IMPRESSION: The areas of alveolar consolidation with interspersed bronchograms in the lingula and left lower lobe, in the subpleural opacities associated with adjacent pleural thickening in the right middle and right lower lobes could represent the manifestations of acute chest syndrome in the setting of sickle cell disease. In contradistinction, the areas of septal thickening in the right middle and right lower lobe superior chronic. Assessment and Plan - Diagnosis (1) Sickle cell crisis Is this a current diagnosis for this admission?: Yes Plan: 12/30: Primarily being managed by hematology. Currently on Dilaudid for pain. Continue IV fluids. Continue hydroxyurea. Continue supplemental oxygen. Will check LDH and will recheck and bilirubin levels. 12/31: Will pursue chest CT. 01/01: Chest CT is consistent with acute chest syndrome likely explaining his prolonged course and slow improvement. Saturating well on nasal cannula. His labs are improving. Reticulocyte count is trending down. Hemoglobin is stable and slightly up now. LDH is also trending down. Bilirubin has normalized. 01/02: Attempt decrease in IV pain meds and assess if he is able to tolerate it. 01/03: Hemoglobin slightly low from yesterday but has been more or less stable compared to the past few days. Other markers of hemolysis are trending down and suggest improvement. 01/04: Improving. Anticipate discharge in the next 24 hrs. (2) Acute chest syndrome Is this a current diagnosis for this admission?: Yes Plan: As per number 1. (3) Hypertension Is this a current diagnosis for this admission?: Yes Plan: Continue amlodipine and clonidine. - Time Time Spent with patient: 15-24 minutes
[2019-01-05] MEDS: HYDROMORPHONE HCL INJ/PF 2 MG/ML AMPULE IV PRN ×7 (01:38→16:11)
[2019-01-05] MEDS: DIPHENHYDRAMINE HCL 50 MG/ML VIAL IV PRN ×3 (01:38→14:03)
[2019-01-05] MEDS: CLONIDINE HCL 0.2 MG TABLET PO SCH ×2 (01:39→09:15)
[2019-01-05] MEDS: NORMAL SALINE 1000 ML 1,000 ML IV PRN (01:41)
[2019-01-05] MEDS: METHADONE HCL 10 MG TABLET PO SCH ×2 (05:06→14:15)
--- NOTE | 2019-01-05 08:19 | PDOC PROGRESS REPORT ---
Subjective Progress Note for:: 01/05/19 Subjective:: Pt doing better today, ready for dc later today when his ride can get here Reason For Visit: SICKLE CELL CRISIS Physical Exam Vital Signs: Temp Pulse Resp BP Pulse Ox 98.4 F 94 16 119/79 94 01/05/19 00:15 01/05/19 00:15 01/05/19 00:15 01/05/19 00:15 01/05/19 00:15 Intake & Output 01/04/19 01/05/19 01/06/19 06:59 06:59 06:59 Intake Total 2540 2240 Output Total 3350 2050 Balance -810 190 Weight 82.9 kg 82.6 kg General appearance: PRESENT: no acute distress, well-developed, well-nourished Head exam: PRESENT: atraumatic, normocephalic Eye exam: PRESENT: conjunctiva pink, EOMI, PERRLA. ABSENT: scleral icterus Ear exam: PRESENT: normal external ear exam Mouth exam: PRESENT: moist, tongue midline Neck exam: ABSENT: carotid bruit, JVD, lymphadenopathy, thyromegaly Respiratory exam: PRESENT: clear to auscultation anastasiya. ABSENT: rales, rhonchi, wheezes Cardiovascular exam: PRESENT: RRR. ABSENT: diastolic murmur, rubs, systolic murmur Pulses: PRESENT: normal dorsalis pedis pul Vascular exam: PRESENT: normal capillary refill GI/Abdominal exam: PRESENT: normal bowel sounds, soft. ABSENT: distended, guarding, mass, organolmegaly, rebound, tenderness Rectal exam: PRESENT: deferred Extremities exam: PRESENT: full ROM. ABSENT: calf tenderness, clubbing, pedal edema Neurological exam: PRESENT: alert, awake, oriented to person, oriented to place, oriented to time, oriented to situation, CN II-XII grossly intact. ABSENT: motor sensory deficit Psychiatric exam: PRESENT: appropriate affect, normal mood. ABSENT: homicidal ideation, suicidal ideation Skin exam: PRESENT: dry, intact, warm. ABSENT: cyanosis, rash Results Laboratory Results: 01/04/19 07:18 01/04/19 07:18 12/20/18 12/20/18 10:16 10:16 Troponin I < 0.012 NT-Pro-B Natriuret Pep 40 Impressions: Abdomen Ultrasound 12/20/18 11:29 IMPRESSION: Cholelithiasis. No ultrasound evidence of acute cholecystitis. Chest X-Ray 12/26/18 00:00 IMPRESSION: Slight increase in bibasilar airspace disease either atelectasis or pneumonia. Chest CT 12/31/18 11:06 IMPRESSION: The areas of alveolar consolidation with interspersed bronchograms in the lingula and left lower lobe, in the subpleural opacities associated with adjacent pleural thickening in the right middle and right lower lobes could represent the manifestations of acute chest syndrome in the setting of sickle cell disease. In contradistinction, the areas of septal thickening in the right middle and right lower lobe superior chronic. 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
[2019-01-05] MEDS: AMLODIPINE BESYLATE 10 MG TABLET PO SCH (09:12)
[2019-01-05] MEDS: FOLIC ACID 1 MG TABLET PO SCH (09:12)
[2019-01-05] MEDS: HYDROXYUREA 500 MG CAPSULE PO SCH (09:12)
[2019-01-05 16:14] VITALS: BP 111/71
--- NOTE | 2019-01-05 16:48 | PDOC DISCHARGE SUMMARY ---
General - Admit/Disc Date/PCP Admission Date/Primary Care Provider: 12/20/18 15:02 BETH STAPLETON MD Discharge Date: 01/05/19 - Discharge Diagnosis (1) Sickle cell crisis Is this a current diagnosis for this admission?: Yes (2) Acute chest syndrome Is this a current diagnosis for this admission?: Yes (3) Hypertension Is this a current diagnosis for this admission?: Yes - Additional Information Resuscitation Status: Full Code Discharge Diet: As Tolerated Discharge Activity: Activity As Tolerated Prescriptions: Amlodipine Besylate [Norvasc 10 mg Tablet] 5 mg PO DAILY #30 tablet Oxycodone HCl [Oxycodone HCl 10 MG Tablet] 10 mg PO Q4HP PRN #1 PRN Reason: For Pain Sennosides/Docusate 8.6-50 mg [Senna Plus Tablet] 1 each PO BIDP PRN #12 tablet PRN Reason: Home Medications: Hydroxyurea [Hydrea 500 mg Capsule] 1,500 mg PO DAILY 12/21/18 Ibuprofen [Motrin 600 mg Tablet] 600 mg PO Q6HP PRN 12/21/18 Methadone HCl 5 mg PO Q8 12/21/18 Folic Acid [Folvite 1 mg Tablet] 1 mg PO DAILY 12/23/18 Amlodipine Besylate [Norvasc 10 mg Tablet] 5 mg PO DAILY #30 tablet 01/05/19 Oxycodone HCl [Oxycodone HCl 10 MG Tablet] 10 mg PO Q4HP PRN #1 01/05/19 Sennosides/Docusate 8.6-50 mg [Senna Plus Tablet] 1 each PO BIDP PRN #12 tablet 01/05/19 History of Present Illness History of Present Illness: Admitting hospitalist's H&P: MARISA GARBER is a 38 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 Despite taking his oxycodone patient continued to have the above-mentioned pain. He denies any fever, cough, chills, palpitation or diaphoresis. He does not have any headache dizziness or blurry vision. Patient was given 3 rounds of 2 mg of IV Dilaudid to no avail. His blood works are unremarkable except anemia of hemoglobin at 9.6 and increased reticulocyte count. There attending requests right upper quadrant ultrasound and it is positive for cholelithiasis without cholecystitis. Of note the patient has multiple admission for the same problem. Hospital Course Hospital Course: Patient is a 38-year-old male with sickle cell disease with prior frequent admissions due to sickle cell crisis. Patient was admitted for another acute sickle cell crisis. He was started on IV fluids and IV Dilaudid per hem/onc. He had a very slow improvement. He was also empirically treated for possible pneumonia and was placed on IV Rocephin for a few days. Chest CT was pursued and findings were consistent with acute chest syndrome. He was maintaining his O2 saturation well fortunately. He did eventually return to his baseline and markers for hemolysis did trend down. He was able to ambulate the hallways on room air with out any issues or desaturation eventually. He will closely follow-up with Dr. Stapleton. Physical Exam Vital Signs: Temp Pulse Resp BP Pulse Ox 98.6 F 83 15 111/71 95 01/05/19 16:12 01/05/19 16:12 01/05/19 16:12 01/05/19 16:12 01/05/19 16:12 Intake & Output 01/04/19 01/05/19 01/06/19 06:59 06:59 06:59 Intake Total 2540 2240 120 Output Total 3350 2050 800 Balance -810 190 -680 Weight 182 lb 12.211 oz 182 lb 1.629 oz General appearance: PRESENT: no acute distress, well-developed, well-nourished Head exam: PRESENT: atraumatic, normocephalic Eye exam: PRESENT: conjunctiva pink, EOMI, PERRLA. ABSENT: scleral icterus Ear exam: PRESENT: normal external ear exam Mouth exam: PRESENT: moist, tongue midline Neck exam: ABSENT: carotid bruit, JVD, lymphadenopathy, thyromegaly Respiratory exam: PRESENT: clear to auscultation anastasiya. ABSENT: rales, rhonchi, wheezes Cardiovascular exam: PRESENT: RRR. ABSENT: diastolic murmur, rubs, systolic murmur Pulses: PRESENT: normal dorsalis pedis pul GI/Abdominal exam: PRESENT: normal bowel sounds, soft. ABSENT: distended, guarding, mass, organolmegaly, rebound, tenderness Rectal exam: PRESENT: deferred Extremities exam: PRESENT: full ROM. ABSENT: calf tenderness, clubbing, pedal edema Neurological exam: PRESENT: alert, awake, oriented to person, oriented to place, oriented to time, oriented to situation, CN II-XII grossly intact. ABSENT: motor sensory deficit Results Laboratory Results: 01/04/19 07:18 01/04/19 07:18 12/20/18 12/20/18 10:16 10:16 Troponin I < 0.012 NT-Pro-B Natriuret Pep 40 Impressions: Abdomen Ultrasound 12/20/18 11:29 IMPRESSION: Cholelithiasis. No ultrasound evidence of acute cholecystitis. Chest X-Ray 12/26/18 00:00 IMPRESSION: Slight increase in bibasilar airspace disease either atelectasis or pneumonia. Chest CT 12/31/18 11:06 IMPRESSION: The areas of alveolar consolidation with interspersed bronchograms in the lingula and left lower lobe, in the subpleural opacities associated with adjacent pleural thickening in the right middle and right lower lobes could represent the manifestations of acute chest syndrome in the setting of sickle cell disease. In contradistinction, the areas of septal thickening in the right middle and right lower lobe superior chronic. Qualifiers - * PATIENT BEING DISCHARGED WITH ANY OF THE FOLLOWING DIAGNOSIS: No Acute Heart Failure - Is this a Heart Failure Patient?: No
== END 2019-01-05 17:40 | disposition home or self-care (01) | DRG 811 ==
LOC: ER 09:52 → EH 15:02 → 4N 16:30
PROVIDERS: ADMIT Internal Medicine; ATTEND Internal Medicine
DX: D57.01 Hb-SS disease with acute chest syndrome (principal); J18.1 Lobar pneumonia, unspecified organism; M87.051 Idiopathic aseptic necrosis of right femur; I10 Essential (primary) hypertension; F32.9 Major depressive disorder, single episode, unspecified; K80.20 Calculus of gallbladder without cholecystitis without obstruction; D58.2 Other hemoglobinopathies; Z79.899 Other long term (current) drug therapy; Z88.6 Allergy status to analgesic agent; Z88.1 Allergy status to other antibiotic agents; Z88.3 Allergy status to other anti-infective agents; Z91.040 Latex allergy status; Z88.8 Allergy status to other drugs, medicaments and biological substances; Z91.018 Allergy to other foods; Z82.49 Family history of ischemic heart disease and other diseases of the circulatory system; Z79.891 Long term (current) use of opiate analgesic
CPT/HCPCS: 36415; 36591; 71045; 71046; 71250; 76705; 80048; 80053; 80076; 80307; 80361; 81001; 83615; 83690; 83880; 84484; 85025; 85027; 85045; 87040; 93005; 93010; 94799; 96361; 96374; 96375; 96376; 99285; J0360; J0456; J1170; J1200; J1642; J1940; J7030; J7060

== ENCOUNTER 2019-01-06 12:09 | Outpatient (CLI) | payer MEDICARE, MEDICAID ==
[2019-01-06] MEDS ORDERED: DIPHENHYDRAMINE HCL 25 MG in NORMAL SALINE 50 ML IV PRN (12:16)
[2019-01-06] MEDS ORDERED: NORMAL SALINE 1000 ML 1,000 ML IV PRN (12:16)
[2019-01-06] MEDS ORDERED: HYDROMORPHONE HCL INJ/PF 2 MG/ML AMPULE IV PRN (12:17)
[2019-01-06 12:30] VITALS: BP 116/73
== END 2019-01-06 13:52 | disposition home or self-care (01) ==
LOC: II 12:09 → 5TH 12:29 → II 13:52
PROVIDERS: ATTEND Internal Medicine
PROC: 3E043GC Introduction of Other Therapeutic Substance into Central Vein, Percutaneous Approach (ICD-10-PCS; principal; 2019-01-06)
PROC: 3E0437Z Introduction of Electrolytic and Water Balance Substance into Central Vein, Percutaneous Approach (ICD-10-PCS; 2019-01-06)
DX: D57.1 Sickle-cell disease without crisis (principal); E86.0 Dehydration; R52 Pain, unspecified
CPT/HCPCS: 96365; 96375; 96361; J1200; J1170; J1642

== ENCOUNTER 2019-01-07 12:29 | Outpatient (CLI) | payer MEDICARE, MEDICAID ==
[2019-01-07] MEDS ORDERED: NORMAL SALINE 1000 ML 1,000 ML IV PRN (12:30)
[2019-01-07] MEDS ORDERED: HYDROMORPHONE HCL INJ/PF 2 MG/ML AMPULE IV PRN (12:34)
[2019-01-07] MEDS ORDERED: DIPHENHYDRAMINE HCL 25 MG in NORMAL SALINE 50 ML IV PRN (12:35)
[2019-01-07 12:50] VITALS: BP 112/75
== END 2019-01-07 13:48 | disposition home or self-care (01) ==
LOC: II 12:29 → 5TH 12:41 → II 13:48
PROVIDERS: ATTEND Internal Medicine
PROC: 3E043GC Introduction of Other Therapeutic Substance into Central Vein, Percutaneous Approach (ICD-10-PCS; principal; 2019-01-07)
PROC: 3E0437Z Introduction of Electrolytic and Water Balance Substance into Central Vein, Percutaneous Approach (ICD-10-PCS; 2019-01-07)
DX: D57.1 Sickle-cell disease without crisis (principal); E86.0 Dehydration; R52 Pain, unspecified
CPT/HCPCS: 96365; 96375; 96361; J1200; J1170; J1642

== ENCOUNTER 2019-01-08 08:32 | Outpatient (CLI) | payer MEDICARE, MEDICAID ==
[2019-01-08] MEDS ORDERED: DIPHENHYDRAMINE 50 MG in NS 50 ML IV PRN (08:36)
[2019-01-08] MEDS ORDERED: NORMAL SALINE 1000 ML @ AS DIRECTED IV PRN (08:37)
[2019-01-08] MEDS ORDERED: HYDROMORPHONE HCL INJ/PF 2 MG/ML AMPULE IV PRN (08:38)
[2019-01-08 08:43] VITALS: BP 128/87
== END 2019-01-08 10:19 | disposition home or self-care (01) ==
LOC: II 08:32 → 5TH 08:33 → II 10:19
PROVIDERS: ATTEND Internal Medicine
PROC: 3E043GC Introduction of Other Therapeutic Substance into Central Vein, Percutaneous Approach (ICD-10-PCS; principal; 2019-01-08)
PROC: 3E0437Z Introduction of Electrolytic and Water Balance Substance into Central Vein, Percutaneous Approach (ICD-10-PCS; 2019-01-08)
DX: D57.1 Sickle-cell disease without crisis (principal); E86.0 Dehydration; R52 Pain, unspecified
CPT/HCPCS: 96365; 96375; 96361; J1200; J1170; J1642

== ENCOUNTER 2019-01-09 14:09 | Outpatient (CLI) | payer MEDICARE, MEDICAID ==
[2019-01-09] MEDS ORDERED: DIPHENHYDRAMINE HCL 25 MG in NORMAL SALINE 50 ML IV PRN (14:14)
[2019-01-09] MEDS ORDERED: NORMAL SALINE 1000 ML 1,000 ML IV PRN (14:15)
[2019-01-09] MEDS ORDERED: HYDROMORPHONE HCL INJ/PF 2 MG/ML AMPULE IV PRN (14:16)
[2019-01-09 14:52] VITALS: BP 108/70
== END 2019-01-09 15:00 | disposition home or self-care (01) ==
LOC: II 14:09 → 5TH 14:13 → II 15:00
PROVIDERS: ATTEND Internal Medicine
PROC: 3E043GC Introduction of Other Therapeutic Substance into Central Vein, Percutaneous Approach (ICD-10-PCS; principal; 2019-01-09)
PROC: 3E0437Z Introduction of Electrolytic and Water Balance Substance into Central Vein, Percutaneous Approach (ICD-10-PCS; 2019-01-09)
DX: D57.1 Sickle-cell disease without crisis (principal); E86.0 Dehydration; R52 Pain, unspecified
CPT/HCPCS: 96365; 96375; 96361; J1200; J1170; J1642

== ENCOUNTER 2019-01-10 20:29 | Emergency (ER) | payer MEDICARE, MEDICAID ==
--- NOTE | 2019-01-10 21:06 | ER Document Report ---
ED Medical Screen (RME) - General Stated Complaint: RIB PAIN Time Seen by Provider: 01/10/19 21:01 Primary Care Provider: BETH STAPLETON MD [Primary Care Provider] - Follow up as needed Mode of Arrival: Ambulatory Information source: Patient Notes: 38-year-old male with history of sickle cell presents with complaints of bilateral rib pain. Reports history of pneumonia. Reports he was just in the hospital for 17 days and is worried he is now have pneumonia. Denies fever vomiting diarrhea. Reports he sweats during the day and is cold at night. Reports it feels like his ribs are rubbing. Respiratory rate even unlabored no distress noted. I have greeted and performed a rapid initial assessment of this patient. A comprehensive ED assessment and evaluation of the patient, analysis of test results and completion of the medical decision making process will be conducted by additional ED providers. Dictation of this chart was performed using voice recognition software; therefore, there may be some unintended grammatical errors. TRAVEL OUTSIDE OF THE [place] IN LAST 30 DAYS: No - Related Data Allergies/Adverse Reactions: famotidine [From Pepcid] Allergy (Severe, Verified 11/28/18 16:30) Anaphylaxis ketorolac tromethamine [From Toradol] Allergy (Severe, Verified 11/28/18 16:30) levofloxacin [From Levaquin] Allergy (Severe, Verified 11/28/18 16:30) meperidine HCl [From Demerol] Allergy (Severe, Verified 11/28/18 16:30) morphine [Morphine] Allergy (Severe, Verified 11/28/18 16:30) tramadol HCl [From Ultram] Allergy (Severe, Verified 11/28/18 16:30) amoxicillin [Amoxicillin] Allergy (Verified 11/28/18 16:30) fentanyl [Fentanyl] Allergy (Verified 11/28/18 16:30) latex [Latex] Allergy (Verified 11/28/18 16:30) ondansetron HCl [From Zofran] Allergy (Verified 11/28/18 16:30) Pork/Porcine Containing Products Allergy (Verified 11/28/18 16:30) Past Medical History - Past Medical History Cardiac Medical History: Denies: Hx Atrial Fibrillation, Hx Congestive Heart Failure, Hx Coronary Artery Disease Pulmonary Medical History: Reports: Hx Pneumonia Denies: Hx Asthma, Hx Bronchitis, Hx COPD, Hx Tuberculosis Neurological Medical History: Reports: Hx Seizures. Denies: Hx Migraine Endocrine Medical History: Denies: Hx Diabetes Mellitus Type 1, Hx Diabetes Mellitus Type 2 Renal/ Medical History: Denies: Hx Peritoneal Dialysis GI Medical History: Denies: Hx Cirrhosis, Hx Hepatitis Musculoskeltal Medical History: Denies Hx Arthritis, Denies Hx Gout, Reports Hx Musculoskeletal Deformity - right hip avascular necrosis Skin Medical History: Denies Hx Eczema, Denies Hx Psoriasis Psychiatric Medical History: Reports: Hx Depression Infectious Medical History: Denies: Hx Hepatitis Past Surgical History: Reports: Hx Appendectomy, Hx Vascular Surgery - L port pl acement, Other - Port placement - Immunizations Immunizations up to date: Yes Hx Diphtheria, Pertussis, Tetanus Vaccination: Yes Physical Exam - Vital signs Vitals: Temp Pulse Resp BP Pulse Ox 98.4 F 75 18 118/72 96 01/10/19 20:42 01/10/19 20:42 01/10/19 20:42 01/10/19 20:42 01/10/19 20:42 Course - Vital Signs Vital signs: Temp Pulse Resp BP Pulse Ox 98.4 F 75 18 118/72 96 01/10/19 20:42 01/10/19 20:42 01/10/19 20:42 01/10/19 20:42 01/10/19 20:42 Doctor's Discharge - Discharge Referrals: BETH STAPLETON MD [Primary Care Provider] - Follow up as needed
--- NOTE | 2019-01-10 21:42 | RADIOLOGY REPORT (SQ) ---
EXAM DESCRIPTION: [facility]: XR RIBS BILATERAL WITH CHEST Views: 5, AP chest and 4 views of the ribs. CLINICAL HISTORY: 38 years Male, rib pain anastasiya COMPARISON: 12/26/2018 FINDINGS: Chest single view: Lungs are clear, with no focal infiltrate, pneumothorax, or pleural effusion. Mediastinum is within normal limits for this positioning. Left IJ port is in place, tip in the SVC. Ribs: Visualized ribs are intact, with no displaced fractures. No suspicious lytic or blastic rib lesions. No subpleural thickening. IMPRESSION: 1. No acute findings. 2. No acute rib fractures or suspicious focal rib lesions. 3. Port-A-Cath in place.
--- NOTE | 2019-01-11 01:06 | ER Document Report ---
ED General - General Chief Complaint: Rib Pain Stated Complaint: RIB PAIN Time Seen by Provider: 01/10/19 21:01 Primary Care Provider: BETH STAPLETON MD [Primary Care Provider] - Follow up as needed Mode of Arrival: Ambulatory Information source: Patient Notes: Patient complains of bilateral rib pain for the past couple days. The pain is lateral chest bilaterally. Patient denies any trauma. Patient has a history of sickle cell and was hospitalized recently for pain crisis. His last exchange transfusion was approximately 7 years ago via a left anterior chest port that is still intact. Patient denies any shortness of breath. He denies fevers or chills. No rashes. No other complaints. TRAVEL OUTSIDE OF THE [place] IN LAST 30 DAYS: No - Related Data Allergies/Adverse Reactions: famotidine [From Pepcid] Allergy (Severe, Verified 11/28/18 16:30) Anaphylaxis ketorolac tromethamine [From Toradol] Allergy (Severe, Verified 11/28/18 16:30) levofloxacin [From Levaquin] Allergy (Severe, Verified 11/28/18 16:30) meperidine HCl [From Demerol] Allergy (Severe, Verified 11/28/18 16:30) morphine [Morphine] Allergy (Severe, Verified 11/28/18 16:30) tramadol HCl [From Ultram] Allergy (Severe, Verified 11/28/18 16:30) amoxicillin [Amoxicillin] Allergy (Verified 11/28/18 16:30) fentanyl [Fentanyl] Allergy (Verified 11/28/18 16:30) latex [Latex] Allergy (Verified 11/28/18 16:30) ondansetron HCl [From Zofran] Allergy (Verified 11/28/18 16:30) Pork/Porcine Containing Products Allergy (Verified 11/28/18 16:30) Past Medical History - General Information source: Patient - Social History Smoking Status: Never Smoker Chew tobacco use (# tins/day): No Family History: Reviewed & Not Pertinent, Hypertension Patient has suicidal ideation: No Patient has homicidal ideation: No - Past Medical History Cardiac Medical History: Denies: Hx Atrial Fibrillation, Hx Congestive Heart Failure, Hx Coronary Artery Disease Pulmonary Medical History: Reports: Hx Pneumonia Denies: Hx Asthma, Hx Bronchitis, Hx COPD, Hx Tuberculosis Neurological Medical History: Reports: Hx Seizures. Denies: Hx Migraine Endocrine Medical History: Denies: Hx Diabetes Mellitus Type 1, Hx Diabetes Mellitus Type 2 Renal/ Medical History: Denies: Hx Peritoneal Dialysis GI Medical History: Denies: Hx Cirrhosis, Hx Hepatitis Musculoskeletal Medical History: Denies Hx Arthritis, Denies Hx Gout, Reports Hx Musculoskeletal Deformity - right hip avascular necrosis Skin Medical History: Denies Hx Eczema, Denies Hx Psoriasis Psychiatric Medical History: Reports: Hx Depression Infectious Medical History: Denies: Hx Hepatitis Past Surgical History: Reports: Hx Appendectomy, Hx Vascular Surgery - L port placement, Other - Port placement - Immunizations Immunizations up to date: Yes Hx Diphtheria, Pertussis, Tetanus Vaccination: Yes Hx Pneumococcal Vaccination: 02/20/11 Review of Systems - Review of Systems Constitutional: denies: Chills, Fever -: Yes All other systems reviewed and negative Physical Exam - Vital signs Vitals: Temp Pulse Resp BP Pulse Ox 98.4 F 75 18 118/72 96 01/10/19 20:42 01/10/19 20:42 01/10/19 20:42 01/10/19 20:42 01/10/19 20:42 - General General appearance: Appears well, Alert Notes: Comfortable. - HEENT Head: Normocephalic, Atraumatic Eyes: Normal Pupils: PERRL - Respiratory Respiratory status: No respiratory distress Chest status: Nontender Breath sounds: Normal Chest palpation: Normal - Cardiovascular Rhythm: Regular Heart sounds: Normal auscultation Murmur: No - Abdominal Inspection: Normal Distension: No distension Bowel sounds: Normal Tenderness: Nontender Organomegaly: No organomegaly - Back Back: Normal, Nontender - Extremities General upper extremity: Normal inspection, Nontender, Normal color, Normal ROM, Normal temperature General lower extremity: Normal inspection, Nontender, Normal color, Normal ROM, Normal temperature, Normal weight bearing. No: Herber's sign - Neurological Neuro grossly intact: Yes Cognition: Normal Orientation: AAOx4 [place]anni Coma Scale Eye Opening: Spontaneous [place] Coma Scale Verbal: Oriented [place] Coma Scale Motor: Obeys Commands [place] Coma Scale Total: 15 Speech: Normal Motor strength normal: LUE, RUE, LLE, RLE Sensory: Normal - Psychological Associated symptoms: Normal affect, Normal mood - Skin Skin Temperature: Warm Skin Moisture: Dry Skin Color: Normal Course - Re-evaluation Re-evalutation: 01/11/19 02:39 Patient feels better on reevaluation. I reviewed the radiological and laboratory study results with the patient. I will discharge him home with follow-up with his own doctor tomorrow for recheck. He will return at once if worse or new symptoms. Reticulocytes are appropriately elevated. 01/11/19 02:40 - Vital Signs Vital signs: Temp Pulse Resp BP Pulse Ox 98.4 F 75 18 118/72 96 01/10/19 20:42 01/10/19 20:42 01/10/19 20:42 01/10/19 20:42 01/10/19 20:42 - Laboratory Result Diagrams: 01/11/19 01:20 01/11/19 01:20 Laboratory results interpreted by me: 01/11/19 01/11/19 01:20 01:20 RBC 2.83 L Hgb 8.9 L Hct 26.4 L RDW 23.1 H Plt Count 632 H Reticulocyte # 0.407 H Seg Neuts % (Manual) 30 L Lymphocytes % (Manual) 63 H Retic Count (auto) 14.38 H BUN 5 L Alkaline Phosphatase 128 H - Diagnostic Test Radiology reviewed: Image reviewed, Reports reviewed Discharge - Discharge Clinical Impression: Sickle cell anemia Qualifiers: Sickle-cell associated disorders: without crisis Qualified Code(s): D57.1 - Sickle-cell disease without crisis Chest pain Qualifiers: Chest pain type: unspecified Qualified Code(s): R07.9 - Chest pain, unspecified Condition: Good Disposition: HOME, SELF-CARE Instructions: Chest Pain of Unclear Cause ([facility]), Sickle Cell Crisis ([facility]) Additional Instructions: Return at once if worse or new symptoms. Follow-up with your doctor tomorrow for recheck. Referrals: BETH STAPLETON MD [Primary Care Provider] - Follow up as needed
[2019-01-11] MEDS ORDERED: DIPHENHYDRAMINE HCL 50 MG/ML VIAL IV ONE (01:26)
[2019-01-11 01:40] LABS: ABSOLUTE RETICS # 0.407 10^6/uL (0.028-0.122); HEMATOCRIT 26.4 % (37.9-51.0); HEMOGLOBIN 8.9 g/dL (13.5-17.0); MEAN CORPUSCULAR HEMOGLOBIN 31.6 pg (27.0-33.4); MEAN CORPUSCULAR HGB CONC 33.8 g/dL (32.0-36.0); MEAN CORPUSCULAR VOLUME 93 fl (80-97); PLATELET COUNT 632 10^3/uL (150-450); RED BLOOD COUNT 2.83 10^6/uL (4.35-5.55); RED CELL DISTRIBUTION WIDTH 23.1 % (11.5-14.0); RETICULOCYTE COUNT (AUTO) 14.38 % (0.66-2.85)
[2019-01-11] MEDS: HYDROMORPHONE HCL INJ/PF 2 MG/ML AMPULE IV PRN ×2 (01:43→03:02)
[2019-01-11 01:59] LABS: ABSOLUTE LYMPHOCYTES# (MANUAL) 3.8 10^3/uL (0.5-4.7); ABSOLUTE MONOCYTES # (MANUAL) 0.4 10^3/uL (0.1-1.4); BASOPHILS % (MANUAL) 0 % (0-2); EOSINOPHILS % (MANUAL) 0 % (0-6); LYMPHOCYTES % (MANUAL) 63 % (13-45); MONOCYTES % (MANUAL) 7 % (3-13); NUCLEATED RED BLOOD CELLS 1 /100 WBC (0); SEGMENTED NEUTROPHILS % (MAN) 30 % (42-78); TOTAL CELLS COUNTED 100
[2019-01-11 02:01] LABS: ANISOCYTOSIS 3+; HYPOCHROMASIA 1+
[2019-01-11 02:02] LABS: ALKALINE PHOSPHATASE 128 U/L (38-126); ANION GAP 9 (5-19); ASPARTATE AMINO TRANSFERASE 29 U/L (17-59); BILIRUBIN,DIRECT 0.2 mg/dL (0.0-0.4); BILIRUBIN,TOTAL 1.3 mg/dL (0.2-1.3); BLOOD UREA NITROGEN 5 mg/dL (7-20); CALCIUM 9.2 mg/dL (8.4-10.2); CARBON DIOXIDE 27 mmol/L (22-30); CHLORIDE 104 mmol/L (98-107); GLUCOSE 85 mg/dL (75-110); POTASSIUM 3.8 mmol/L (3.6-5.0); TOTAL PROTEIN 7.9 g/dL (6.3-8.2)
[2019-01-11 02:03] LABS: PLATELET COMMENT INCREASED
[2019-01-11 03:01] LABS: POIKILOCYTOSIS 1+; SICKLE RED CELLS SLIGHT
[2019-01-11 03:03] VITALS: BP 114/68
== END 2019-01-11 03:11 | disposition home or self-care (01) ==
LOC: ER 20:29
DX: R07.81 Pleurodynia (principal); D57.1 Sickle-cell disease without crisis; Z87.01 Personal history of pneumonia (recurrent); Z87.892 Personal history of anaphylaxis; Z88.8 Allergy status to other drugs, medicaments and biological substances; Z88.1 Allergy status to other antibiotic agents; Z88.5 Allergy status to narcotic agent; Z88.0 Allergy status to penicillin; Z91.040 Latex allergy status; Z91.018 Allergy to other foods
CPT/HCPCS: 36415; 85025; 85045; 80053; 71111; J1200; J1170

== ENCOUNTER 2019-01-12 13:44 | Outpatient (CLI) | payer MEDICARE, MEDICAID ==
[2019-01-12] MEDS ORDERED: NORMAL SALINE 1000 ML 1,000 ML IV PRN (15:19)
[2019-01-12] MEDS ORDERED: DIPHENHYDRAMINE HCL 50 MG/ML VIAL IV ONE (15:45)
[2019-01-12] MEDS ORDERED: HYDROMORPHONE HCL INJ/PF 2 MG/ML AMPULE IV ONE (15:45)
[2019-01-12 16:50] VITALS: BP 114/77
== END 2019-01-12 16:58 | disposition home or self-care (01) ==
LOC: ER 13:44
PROVIDERS: ATTEND Internal Medicine
PROC: 3E043GC Introduction of Other Therapeutic Substance into Central Vein, Percutaneous Approach (ICD-10-PCS; principal; 2019-01-12)
PROC: 3E0437Z Introduction of Electrolytic and Water Balance Substance into Central Vein, Percutaneous Approach (ICD-10-PCS; 2019-01-12)
DX: D57.1 Sickle-cell disease without crisis (principal); E86.0 Dehydration; R52 Pain, unspecified
CPT/HCPCS: J1200; J1170; J7030; J1642; 96361; 96374; 96375

== ENCOUNTER 2019-01-13 14:06 | Outpatient (CLI) | payer MEDICARE, MEDICAID ==
[2019-01-13] MEDS ORDERED: DIPHENHYDRAMINE HCL 25 MG in NORMAL SALINE 50 ML IV PRN (14:09)
[2019-01-13] MEDS ORDERED: NORMAL SALINE 1000 ML 1,000 ML IV PRN (14:10)
[2019-01-13] MEDS ORDERED: HYDROMORPHONE HCL INJ/PF 2 MG/ML AMPULE IV PRN (14:11)
[2019-01-13 14:47] VITALS: BP 119/70
== END 2019-01-13 15:45 | disposition home or self-care (01) ==
LOC: II 14:06 → 5TH 14:08 → II 15:45
PROVIDERS: ATTEND Internal Medicine
PROC: 3E043GC Introduction of Other Therapeutic Substance into Central Vein, Percutaneous Approach (ICD-10-PCS; principal; 2019-01-13)
PROC: 3E0437Z Introduction of Electrolytic and Water Balance Substance into Central Vein, Percutaneous Approach (ICD-10-PCS; 2019-01-13)
DX: D57.1 Sickle-cell disease without crisis (principal); E86.0 Dehydration; R52 Pain, unspecified
CPT/HCPCS: 96365; 96375; 96361; J1200; J1170; J1642

== ENCOUNTER 2019-01-14 08:33 | Outpatient (CLI) | payer MEDICARE, MEDICAID ==
[~2019-01-14 08:33] MED LIST changes: +DIPHENHYDRAMINE HCL 25 MG in NORMAL SALINE 50 ML INJ PRN; -DIPHENHYDRAMINE HCL 25 MG in NORMAL SALINE 50 ML IV PRN; -DIPHENHYDRAMINE HCL 50 MG in NORMAL SALINE 50 ML IV PRN
[2019-01-14 08:47] VITALS: BP 118/79
== END 2019-01-14 10:15 | disposition home or self-care (01) ==
LOC: II 08:33 → 5TH 08:35 → II 10:15
PROVIDERS: ATTEND Internal Medicine
PROC: 3E043GC Introduction of Other Therapeutic Substance into Central Vein, Percutaneous Approach (ICD-10-PCS; principal; 2019-01-14)
PROC: 3E0437Z Introduction of Electrolytic and Water Balance Substance into Central Vein, Percutaneous Approach (ICD-10-PCS; 2019-01-14)
DX: D57.1 Sickle-cell disease without crisis (principal); E86.0 Dehydration; R52 Pain, unspecified
CPT/HCPCS: 96365; 96375; 96361; J1200; J1170; J1642

== ENCOUNTER 2019-01-15 13:09 | Outpatient (CLI) | payer MEDICARE, MEDICAID ==
[~2019-01-15 13:09] MED LIST changes: -DIPHENHYDRAMINE HCL 25 MG in NORMAL SALINE 50 ML INJ PRN; -HYDROMORPHONE HCL INJ/PF 2 MG/ML AMPULE IV PRN; -NORMAL SALINE 1000 ML 1,000 ML IV PRN; +NORMAL SALINE 1000 ML @ AS DIRECTED IV PRN
[2019-01-15] MEDS ORDERED: DIPHENHYDRAMINE HCL 25 MG in NORMAL SALINE 50 ML IV PRN (13:19)
[2019-01-15] MEDS ORDERED: HYDROMORPHONE HCL INJ/PF 2 MG/ML AMPULE IV PRN (13:20)
[2019-01-15 14:14] VITALS: BP 129/81
== END 2019-01-15 15:15 | disposition home or self-care (01) ==
LOC: II 13:09 → 5TH 13:12 → II 15:15
PROVIDERS: ATTEND Internal Medicine
PROC: 3E0437Z Introduction of Electrolytic and Water Balance Substance into Central Vein, Percutaneous Approach (ICD-10-PCS; principal; 2019-01-15)
PROC: 3E043GC Introduction of Other Therapeutic Substance into Central Vein, Percutaneous Approach (ICD-10-PCS; 2019-01-15)
DX: D57.1 Sickle-cell disease without crisis (principal); E86.0 Dehydration; R52 Pain, unspecified
CPT/HCPCS: 96365; 96375; 96361; J1200; J1170; J1642

== ENCOUNTER 2019-01-19 14:48 | Outpatient (CLI) | payer MEDICARE, MEDICAID ==
[2019-01-19] MEDS ORDERED: DIPHENHYDRAMINE HCL 25 MG in NORMAL SALINE 50 ML IV PRN (15:12)
[2019-01-19] MEDS ORDERED: NORMAL SALINE 1000 ML 1,000 ML IV PRN (15:13)
[2019-01-19] MEDS ORDERED: HYDROMORPHONE HCL INJ/PF 2 MG/ML AMPULE IV PRN (15:15)
[2019-01-19] MEDS ORDERED: DIPHENHYDRAMINE HCL 50 MG/ML VIAL IV PRN (15:40)
[2019-01-19 16:49] VITALS: BP 118/88
== END 2019-01-19 16:57 | disposition home or self-care (01) ==
LOC: II 14:48 → 4N 14:55 → II 16:57
PROVIDERS: ATTEND Internal Medicine
PROC: 3E043GC Introduction of Other Therapeutic Substance into Central Vein, Percutaneous Approach (ICD-10-PCS; principal; 2019-01-19)
PROC: 3E0437Z Introduction of Electrolytic and Water Balance Substance into Central Vein, Percutaneous Approach (ICD-10-PCS; 2019-01-19)
DX: D57.1 Sickle-cell disease without crisis (principal); E86.0 Dehydration; R52 Pain, unspecified
CPT/HCPCS: 96365; 96375; 96361; J1200; J1170; J7030; J1642

== ENCOUNTER 2019-01-20 09:32 | Outpatient (CLI) | payer MEDICARE, MEDICAID ==
[~2019-01-20 09:32] MED LIST changes: +DIPHENHYDRAMINE HCL 25 MG in NORMAL SALINE 50 ML IV PRN; +HYDROMORPHONE HCL INJ/PF 2 MG/ML AMPULE IV PRN; +NORMAL SALINE 1000 ML 1,000 ML IV PRN; -NORMAL SALINE 1000 ML @ AS DIRECTED IV PRN
[2019-01-20 10:05] VITALS: BP 117/83
== END 2019-01-20 11:51 | disposition home or self-care (01) ==
LOC: II 09:32 → 5TH 09:33 → II 11:51
PROVIDERS: ATTEND Internal Medicine
PROC: 3E0437Z Introduction of Electrolytic and Water Balance Substance into Central Vein, Percutaneous Approach (ICD-10-PCS; principal; 2019-01-20)
PROC: 3E043GC Introduction of Other Therapeutic Substance into Central Vein, Percutaneous Approach (ICD-10-PCS; 2019-01-20)
DX: D57.1 Sickle-cell disease without crisis (principal); E86.0 Dehydration; R52 Pain, unspecified
CPT/HCPCS: 96365; 96375; 96361; J1200; J1170; J1642

== ENCOUNTER 2019-01-21 09:32 | Outpatient (CLI) | payer MEDICARE, MEDICAID ==
[2019-01-21] MEDS ORDERED: NORMAL SALINE 1000 ML 1,000 ML IV PRN (09:41)
[2019-01-21] MEDS ORDERED: DIPHENHYDRAMINE HCL 25 MG in NORMAL SALINE 50 ML IV PRN (09:41)
[2019-01-21] MEDS ORDERED: HYDROMORPHONE HCL INJ/PF 2 MG/ML AMPULE IV PRN (09:41)
[2019-01-21 09:51] VITALS: BP 138/97
== END 2019-01-21 11:29 | disposition home or self-care (01) ==
LOC: II 09:32 → 5TH 09:36 → II 11:29
PROVIDERS: ATTEND Internal Medicine
PROC: 3E0437Z Introduction of Electrolytic and Water Balance Substance into Central Vein, Percutaneous Approach (ICD-10-PCS; principal; 2019-01-21)
PROC: 3E043GC Introduction of Other Therapeutic Substance into Central Vein, Percutaneous Approach (ICD-10-PCS; 2019-01-21)
DX: D57.1 Sickle-cell disease without crisis (principal); E86.0 Dehydration; R52 Pain, unspecified
CPT/HCPCS: 96365; 96375; 96361; J1200; J1170; J1642

== ENCOUNTER 2019-01-22 14:08 | Outpatient (CLI) | payer MEDICARE, MEDICAID ==
[2019-01-22] MEDS ORDERED: DIPHENHYDRAMINE HCL 25 MG in NORMAL SALINE 50 ML IV PRN (14:13)
[2019-01-22] MEDS ORDERED: NORMAL SALINE 1000 ML @ AS DIRECTED IV PRN (14:13)
[2019-01-22] MEDS ORDERED: HYDROMORPHONE HCL INJ/PF 2 MG/ML AMPULE IV PRN (14:14)
[2019-01-22 14:56] VITALS: BP 128/89
== END 2019-01-22 15:45 | disposition home or self-care (01) ==
LOC: II 14:08 → 5TH 14:09 → II 15:45
PROVIDERS: ATTEND Internal Medicine
PROC: 3E0437Z Introduction of Electrolytic and Water Balance Substance into Central Vein, Percutaneous Approach (ICD-10-PCS; principal; 2019-01-22)
PROC: 3E043GC Introduction of Other Therapeutic Substance into Central Vein, Percutaneous Approach (ICD-10-PCS; 2019-01-22)
DX: D57.1 Sickle-cell disease without crisis (principal); E86.0 Dehydration; R52 Pain, unspecified
CPT/HCPCS: 96365; 96375; 96361; J1200; J1170; J1642

== ENCOUNTER 2019-01-26 03:20 | Emergency (ER) | payer MEDICARE, MEDICAID ==
[2019-01-26] MEDS ORDERED: NORMAL SALINE 1000 ML 1,000 ML IV ONE (03:36)
[2019-01-26] MEDS ORDERED: HYDROMORPHONE HCL INJ/PF 2 MG/ML AMPULE IV ONE ×2 (03:43→04:55)
[2019-01-26] MEDS ORDERED: DIPHENHYDRAMINE HCL 50 MG/ML VIAL IV ONE ×2 (03:43→04:55)
--- NOTE | 2019-01-26 03:49 | ER Document Report ---
ED General - General Chief Complaint: Pain All Over Stated Complaint: JOINT PAIN Time Seen by Provider: 01/26/19 03:36 Primary Care Provider: BETH STAPLETON MD [Primary Care Provider] - 01/26/19 Mode of Arrival: Ambulatory Information source: Patient Notes: This 38-year-old male with history of sickle cell presents emergency department with complaints of generalized pain back pain joint pain. Reports the pain woke him up approximately 11:30 PM tonight. Denies fever vomiting diarrhea. Denies cough. Reports history of shortness of breath with exertion. Reports history of night sweats. Patient is talking a clear voice no shortness of breath noted respiratory rate even unlabored. TRAVEL OUTSIDE OF THE [place] IN LAST 30 DAYS: No - HPI Onset: Just prior to arrival Quality of pain: Achy Associated symptoms: Shortness of breath Exacerbated by: Denies Relieved by: Denies Similar symptoms previously: Yes Recently seen / treated by doctor: Yes - Related Data Allergies/Adverse Reactions: famotidine [From Pepcid] Allergy (Severe, Verified 11/28/18 16:30) Anaphylaxis ketorolac tromethamine [From Toradol] Allergy (Severe, Verified 11/28/18 16:30) levofloxacin [From Levaquin] Allergy (Severe, Verified 11/28/18 16:30) meperidine HCl [From Demerol] Allergy (Severe, Verified 11/28/18 16:30) morphine [Morphine] Allergy (Severe, Verified 11/28/18 16:30) tramadol HCl [From Ultram] Allergy (Severe, Verified 11/28/18 16:30) amoxicillin [Amoxicillin] Allergy (Verified 11/28/18 16:30) fentanyl [Fentanyl] Allergy (Verified 11/28/18 16:30) latex [Latex] Allergy (Verified 11/28/18 16:30) ondansetron HCl [From Zofran] Allergy (Verified 11/28/18 16:30) Pork/Porcine Containing Products Allergy (Verified 11/28/18 16:30) Past Medical History - General Information source: Patient - Social History Smoking Status: Never Smoker Chew tobacco use (# tins/day): No Frequency of alcohol use: None Drug Abuse: None Occupation: [employer] Lives with: Family Family History: Reviewed & Not Pertinent, Hypertension Patient has suicidal ideation: No Patient has homicidal ideation: No - Past Medical History Cardiac Medical History: Denies: Hx Atrial Fibrillation, Hx Congestive Heart Failure, Hx Coronary Artery Disease Pulmonary Medical History: Reports: Hx Pneumonia Denies: Hx Asthma, Hx Bronchitis, Hx COPD, Hx Tuberculosis Neurological Medical History: Reports: Hx Seizures. Denies: Hx Migraine, Hx Parkinson's Disease Endocrine Medical History: Denies: Hx Diabetes Mellitus Type 1, Hx Diabetes Mellitus Type 2 Renal/ Medical History: Denies: Hx Peritoneal Dialysis GI Medical History: Denies: Hx Cirrhosis, Hx Hepatitis Musculoskeletal Medical History: Denies Hx Arthritis, Denies Hx Gout, Reports Hx Musculoskeletal Deformity - right hip avascular necrosis Skin Medical History: Denies Hx Eczema, Denies Hx Psoriasis Psychiatric Medical History: Reports: Hx Depression Infectious Medical History: Denies: Hx Hepatitis Past Surgical History: Reports: Hx Appendectomy, Hx Vascular Surgery - L port placement, Other - Port placement - Immunizations Immunizations up to date: Yes Hx Diphtheria, Pertussis, Tetanus Vaccination: Yes Hx Pneumococcal Vaccination: 02/20/11 Review of Systems - Review of Systems Notes: Review HPI for review of systems., All other systems negative Physical Exam - Vital signs Vitals: Temp Pulse Resp BP Pulse Ox 98.4 F 67 20 118/82 100 01/26/19 03:25 01/26/19 03:25 01/26/19 03:25 01/26/19 03:25 01/26/19 03:25 - General General appearance: Alert In distress: None - HEENT Head: Normocephalic Eyes: Normal Mucous membranes: Moist Neck: Normal, Supple. No: Lymphadenopathy - Respiratory Respiratory status: No respiratory distress Chest status: Nontender Breath sounds: Normal Chest palpation: Normal - Cardiovascular Rhythm: Regular Heart sounds: Normal auscultation Murmur: No - Abdominal Inspection: Normal Distension: No distension Tenderness: Nontender - Back Back: Normal - No erythema no swelling no warmth no obvious deformity good distal movement and sensation - Extremities General upper extremity: Normal ROM, Normal strength General lower extremity: Normal ROM, Normal strength - Neurological Neuro grossly intact: Yes Cognition: Normal Orientation: AAOx4 [place] Coma Scale Eye Opening: Spontaneous [place] Coma Scale Verbal: Oriented [place] Coma Scale Motor: Obeys Commands [place] Coma Scale Total: 15 Speech: Normal Cerebellar coordination: Normal - Psychological Associated symptoms: Normal affect, Normal mood - Skin Skin Temperature: Warm Skin Moisture: Dry Skin Color: Normal Course - Re-evaluation Re-evalutation: 01/26/19 04:53 Patient reports he still hurting requesting more pain medication. Chest X-Ray 01/26/19 03:44 IMPRESSION: Stable chest copyright 2011 [employer]- All Rights Reserved 01/26/19 06:50 Labs unremarkable for patient. Retake count 7.52. Patient reports he feels much better. He will be discharged home instructed follow-up with Dr. Stapleton. He verbalized understanding. - Vital Signs Vital signs: Temp Pulse Resp BP Pulse Ox 97.7 F 62 18 120/73 93 01/26/19 07:10 01/26/19 07:10 01/26/19 07:10 01/26/19 07:10 01/26/19 07:10 - Laboratory Result Diagrams: 01/26/19 04:30 01/26/19 04:30 Laboratory results interpreted by me: 01/26/19 01/26/19 04:30 04:30 RBC 2.93 L Hgb 9.1 L Hct 27.1 L RDW 21.1 H Reticulocyte # 0.221 H Lymphocytes % (Manual) 47 H Retic Count (auto) 7.52 H BUN 6 L Total Bilirubin 1.6 H - Diagnostic Test Radiology reviewed: Image reviewed, Reports reviewed Discharge - Discharge Clinical Impression: Joint pain Qualifiers: Joint pain location: unspecified Qualified Code(s): M25.50 - Pain in unspecified joint Back pain Qualifiers: Back pain location: back pain in unspecified location Chronicity: unspecified Back pain laterality: unspecified Qualified Code(s): M54.9 - Dorsalgia, unspecified Condition: Stable Disposition: HOME, SELF-CARE Additional Instructions: *You have been evaluated for back pain, joint pain, sickle cell *stay well hydrated *Follow up with Dr Garcia today *Return to ED for worsening condition, changes, needs Referrals: BETH STAPLETON MD [Primary Care Provider] - 01/26/19
--- NOTE | 2019-01-26 04:13 | RADIOLOGY REPORT (SQ) ---
EXAM DESCRIPTION: XR CHEST 2 VIEWS COMPLETED DATE/TME: 01/26/2019 03:44 CLINICAL HISTORY: 38 years, Male, back pain sob COMPARISON: 01/10/2019 chest NUMBER OF VIEWS: 2 TECHNIQUE: 2 view chest LIMITATIONS: None. FINDINGS: Cardiomegaly. [id number] catheter in place. Fibrotic changes over the lung bases. No pneumothorax IMPRESSION: Stable chest copyright 2010 [employer]- All Rights Reserved
[2019-01-26 05:17] LABS: ALBUMIN 3.8 g/dL (3.5-5.0); ALKALINE PHOSPHATASE 109 U/L (38-126); ANION GAP 8 (5-19); ASPARTATE AMINO TRANSFERASE 29 U/L (17-59); BILIRUBIN,TOTAL 1.6 mg/dL (0.2-1.3); BLOOD UREA NITROGEN 6 mg/dL (7-20); CALCIUM 8.7 mg/dL (8.4-10.2); CARBON DIOXIDE 27 mmol/L (22-30); CHLORIDE 105 mmol/L (98-107); GLUCOSE 87 mg/dL (75-110); POTASSIUM 3.7 mmol/L (3.6-5.0); TOTAL PROTEIN 7.5 g/dL (6.3-8.2)
[2019-01-26 05:30] LABS: ABSOLUTE RETICS # 0.221 10^6/uL (0.028-0.122); HEMATOCRIT 27.1 % (37.9-51.0); HEMOGLOBIN 9.1 g/dL (13.5-17.0); MEAN CORPUSCULAR HGB CONC 33.5 g/dL (32.0-36.0); MEAN CORPUSCULAR VOLUME 93 fl (80-97); PLATELET COUNT 269 10^3/uL (150-450); RED BLOOD COUNT 2.93 10^6/uL (4.35-5.55); RED CELL DISTRIBUTION WIDTH 21.1 % (11.5-14.0); RETICULOCYTE COUNT (AUTO) 7.52 % (0.66-2.85); WHITE BLOOD COUNT 5.4 10^3/uL (4.0-10.5)
[2019-01-26 06:10] LABS: APPEARANCE,URINE CLEAR; BILIRUBIN,URINE NEGATIVE (NEGATIVE); COLOR,URINE STRAW; GLUCOSE, URINE NEGATIVE (NEGATIVE); KETONES,URINE NEGATIVE (NEGATIVE); LEUKOCYTE ESTERASE,URINE NEGATIVE (NEGATIVE); NITRITE,URINE NEGATIVE (NEGATIVE); PROTEIN,URINE NEGATIVE (NEGATIVE); URINE SPECIFIC GRAVITY 1.003; UROBILINOGEN,URINE NEGATIVE mg/dL (<2.0)
[2019-01-26 06:33] LABS: ABSOLUTE LYMPHOCYTES# (MANUAL) 2.5 10^3/uL (0.5-4.7); ABSOLUTE MONOCYTES # (MANUAL) 0.3 10^3/uL (0.1-1.4); ANISOCYTOSIS 3+; BASOPHILS % (MANUAL) 1 % (0-2); EOSINOPHILS % (MANUAL) 2 % (0-6); LYMPHOCYTES % (MANUAL) 47 % (13-45); MONOCYTES % (MANUAL) 6 % (3-13); POIKILOCYTOSIS 2+; SEGMENTED NEUTROPHILS % (MAN) 44 % (42-78); SICKLE RED CELLS 1+; TOTAL CELLS COUNTED 100
[2019-01-26 06:34] LABS: PLATELET COMMENT ADEQUATE
[2019-01-26 07:16] VITALS: BP 120/73
== END 2019-01-26 07:24 | disposition home or self-care (01) ==
LOC: ER 03:20
DX: M54.9 Dorsalgia, unspecified (principal); M25.50 Pain in unspecified joint; M79.10 Myalgia, unspecified site; R06.02 Shortness of breath
CPT/HCPCS: 36591; 96376; 99283; 96361; 96374; 96375; 36415; 85025; 85045; 80053; 81001; 71046; J1200; J1170; J7030; J1642

== ENCOUNTER → 2019-01-27 | Outpatient (CLI) | payer MEDICARE, MEDICAID ==
[~2019-01-27] MED LIST changes: +INFLUENZA QUAD (6MOS+) 2019-20 VAC 0.5 ML SYR IM ONE
[2019-01-27 09:13] VITALS: BP 132/97
== END ==
LOC: II 08:46 → 5TH 08:49
PROVIDERS: ATTEND Internal Medicine
PROC: 3E0437Z Introduction of Electrolytic and Water Balance Substance into Central Vein, Percutaneous Approach (ICD-10-PCS; principal; 2019-01-27)
PROC: 3E043GC Introduction of Other Therapeutic Substance into Central Vein, Percutaneous Approach (ICD-10-PCS; 2019-01-27)
DX: D57.1 Sickle-cell disease without crisis (principal); E86.0 Dehydration; R52 Pain, unspecified
CPT/HCPCS: 96365; 96375; 96361; J1200; J1170; J1642

== ENCOUNTER 2019-01-28 09:12 | Outpatient (CLI) | payer MEDICARE, MEDICAID ==
[2019-01-28] MEDS ORDERED: DIPHENHYDRAMINE HCL 25 MG in NORMAL SALINE 50 ML IV PRN (09:25)
[2019-01-28] MEDS ORDERED: HYDROMORPHONE HCL INJ/PF 2 MG/ML AMPULE IV PRN (09:25)
[2019-01-28] MEDS ORDERED: NORMAL SALINE 1000 ML 1,000 ML IV PRN (09:25)
[2019-01-28 09:30] VITALS: BP 122/88
[2019-01-28] MEDS ORDERED: INFLUENZA QUAD (6MOS+) 2019-20 VAC 0.5 ML SYR IM ONE (10:00)
== END 2019-01-28 11:30 | disposition home or self-care (01) ==
LOC: II 09:12 → 5TH 09:16 → II 11:30
PROVIDERS: ATTEND Internal Medicine
PROC: 3E0437Z Introduction of Electrolytic and Water Balance Substance into Central Vein, Percutaneous Approach (ICD-10-PCS; principal; 2019-01-28)
PROC: 3E043GC Introduction of Other Therapeutic Substance into Central Vein, Percutaneous Approach (ICD-10-PCS; 2019-01-28)
PROC: 3E02340 Introduction of Influenza Vaccine into Muscle, Percutaneous Approach (ICD-10-PCS; 2019-01-28)
DX: D57.1 Sickle-cell disease without crisis (principal); E86.0 Dehydration; R52 Pain, unspecified; Z23 Encounter for immunization
CPT/HCPCS: 90686; 96365; 96372; 96375; 96361; J1200; J1170; J1642; 90471; G0008

== ENCOUNTER 2019-01-29 09:28 | Outpatient (CLI) | payer MEDICARE, MEDICAID ==
[~2019-01-29 09:28] MED LIST changes: -INFLUENZA QUAD (6MOS+) 2019-20 VAC 0.5 ML SYR IM ONE
[2019-01-29 09:43] VITALS: BP 145/94
== END 2019-01-29 10:59 | disposition home or self-care (01) ==
LOC: II 09:28 → 5TH 09:31 → II 10:59
PROVIDERS: ATTEND Internal Medicine
PROC: 3E043GC Introduction of Other Therapeutic Substance into Central Vein, Percutaneous Approach (ICD-10-PCS; principal; 2019-01-29)
PROC: 3E0437Z Introduction of Electrolytic and Water Balance Substance into Central Vein, Percutaneous Approach (ICD-10-PCS; 2019-01-29)
DX: D57.1 Sickle-cell disease without crisis (principal); E86.0 Dehydration; R52 Pain, unspecified
CPT/HCPCS: 96365; 96375; 96361; J1200; J1170; J1642

== ENCOUNTER 2019-01-31 02:47 | Emergency (ER) | payer MEDICARE, MEDICAID ==
[2019-01-31 04:27] LABS: HEMATOCRIT 27.3 % (37.9-51.0); HEMOGLOBIN 9.3 g/dL (13.5-17.0); MEAN CORPUSCULAR HEMOGLOBIN 31.7 pg (27.0-33.4); MEAN CORPUSCULAR VOLUME 93 fl (80-97); PLATELET COUNT 265 10^3/uL (150-450); RED BLOOD COUNT 2.92 10^6/uL (4.35-5.55); RED CELL DISTRIBUTION WIDTH 24.2 % (11.5-14.0); RETICULOCYTE COUNT (AUTO) 9.23 % (0.66-2.85); WHITE BLOOD COUNT 5.8 10^3/uL (4.0-10.5)
[2019-01-31 04:45] LABS: ALBUMIN 3.9 g/dL (3.5-5.0); ALKALINE PHOSPHATASE 110 U/L (38-126); ANION GAP 8 (5-19); ASPARTATE AMINO TRANSFERASE 34 U/L (17-59); BILIRUBIN,TOTAL 2.2 mg/dL (0.2-1.3); BLOOD UREA NITROGEN 6 mg/dL (7-20); CALCIUM 8.7 mg/dL (8.4-10.2); CARBON DIOXIDE 27 mmol/L (22-30); CHLORIDE 104 mmol/L (98-107); GLUCOSE 96 mg/dL (75-110); POTASSIUM 3.5 mmol/L (3.6-5.0); TOTAL PROTEIN 7.6 g/dL (6.3-8.2)
[2019-01-31 04:46] LABS: ABSOLUTE LYMPHOCYTES# (MANUAL) 2.4 10^3/uL (0.5-4.7); ABSOLUTE MONOCYTES # (MANUAL) 0.6 10^3/uL (0.1-1.4); BASOPHILS % (MANUAL) 1 % (0-2); EOSINOPHILS % (MANUAL) 2 % (0-6); LYMPHOCYTES % (MANUAL) 41 % (13-45); MONOCYTES % (MANUAL) 10 % (3-13); NUCLEATED RED BLOOD CELLS 2 /100 WBC (0); SEGMENTED NEUTROPHILS % (MAN) 45 % (42-78); TOTAL CELLS COUNTED 100
[2019-01-31 04:47] LABS: ANISOCYTOSIS 3+; HYPOCHROMASIA 1+; PLATELET COMMENT ADEQUATE; SICKLE RED CELLS 1+; TARGET CELLS SLIGHT
--- NOTE | 2019-01-31 05:27 | RADIOLOGY REPORT (SQ) ---
Chest 2 view on 01/31/2019 at 4:28 AM CLINICAL INDICATION: Shortness of breath, chest pain COMPARISON: 01/26/2019 FINDINGS: Left IJ Port-A-Cath tip is in the SVC. Cardiomegaly is noted. There are basilar predominant opacities that may represent atelectasis, scarring and/or chronic interstitial changes. Lungs are otherwise clear. Hilar and mediastinal contours are within normal limits. IMPRESSION: No significant change in the appearance of the chest.
[2019-01-31] MEDS ORDERED: DIPHENHYDRAMINE HCL 50 MG/ML VIAL IV ONE ×3 (06:24→09:11)
[2019-01-31] MEDS ORDERED: HYDROMORPHONE HCL INJ/PF 2 MG/ML AMPULE IV ONE ×3 (06:24→09:10)
[2019-01-31] MEDS ORDERED: NORMAL SALINE 1000 ML 1,000 ML IV ONE ×2 (06:24→09:11)
--- NOTE | 2019-01-31 08:11 | EKG REPORT ---
SEVERITY:- ABNORMAL ECG - SINUS RHYTHM CONSIDER ANTEROSEPTAL INFARCT : Confirmed by: Emre Montoay MD 31-Jan-2019 08:10:45
--- NOTE | 2019-01-31 09:16 | ER Document Report ---
ED General - General Chief Complaint: Chest Pain Stated Complaint: SICKLE CELL PROBLEMS WITH CHEST PAIN Time Seen by Provider: 01/31/19 06:08 Primary Care Provider: BETH STAPLETON MD [Primary Care Provider] - Follow up as needed Notes: 38-year-old male with history of sickle cell presents emergency department comp laining of a sickle cell crisis. Patient states that yesterday he started feeling lightheaded and then last evening into this morning he started developing pain. States that he is having left-sided chest pain, joint pain and back pain. States the left-sided chest pain is similar to the last 2 times he has had acute chest syndrome. Admits to shortness of breath, denies cough or fevers. States that this crisis is lasting longer than usual. Tried his home oxycodone and methadone and it did not help. Denies nausea, vomiting, diarrhea. TRAVEL OUTSIDE OF THE [place] IN LAST 30 DAYS: No - Related Data Allergies/Adverse Reactions: famotidine [From Pepcid] Allergy (Severe, Verified 11/28/18 16:30) Anaphylaxis ketorolac tromethamine [From Toradol] Allergy (Severe, Verified 11/28/18 16:30) levofloxacin [From Levaquin] Allergy (Severe, Verified 11/28/18 16:30) meperidine HCl [From Demerol] Allergy (Severe, Verified 11/28/18 16:30) morphine [Morphine] Allergy (Severe, Verified 11/28/18 16:30) tramadol HCl [From Ultram] Allergy (Severe, Verified 11/28/18 16:30) amoxicillin [Amoxicillin] Allergy (Verified 11/28/18 16:30) fentanyl [Fentanyl] Allergy (Verified 11/28/18 16:30) latex [Latex] Allergy (Verified 11/28/18 16:30) ondansetron HCl [From Zofran] Allergy (Verified 11/28/18 16:30) Pork/Porcine Containing Products Allergy (Verified 11/28/18 16:30) Past Medical History - General Information source: Patient - Social History Smoking Status: Never Smoker Frequency of alcohol use: None Drug Abuse: None Family History: Reviewed & Not Pertinent, Hypertension Patient has suicidal ideation: No Patient has homicidal ideation: No - Past Medical History Cardiac Medical History: Denies: Hx Atrial Fibrillation, Hx Congestive Heart Failure, Hx Coronary Artery Disease Pulmonary Medical History: Reports: Hx Pneumonia Denies: Hx Asthma, Hx Bronchitis, Hx COPD, Hx Tuberculosis Neurological Medical History: Reports: Hx Seizures. Denies: Hx Migraine, Hx Parkinson's Disease Endocrine Medical History: Denies: Hx Diabetes Mellitus Type 1, Hx Diabetes Mellitus Type 2 Renal/ Medical History: Denies: Hx Peritoneal Dialysis GI Medical History: Denies: Hx Cirrhosis, Hx Hepatitis Musculoskeletal Medical History: Denies Hx Arthritis, Denies Hx Gout, Reports Hx Musculoskeletal Deformity - right hip avascular necrosis Skin Medical History: Denies Hx Eczema, Denies Hx Psoriasis Psychiatric Medical History: Reports: Hx Depression Infectious Medical History: Denies: Hx Hepatitis Past Surgical History: Reports: Hx Appendectomy, Hx Vascular Surgery - L port placement, Other - Port placement - Immunizations Immunizations up to date: Yes Hx Diphtheria, Pertussis, Tetanus Vaccination: Yes Hx Pneumococcal Vaccination: 02/20/11 Review of Systems - Review of Systems Constitutional: See HPI - Lightheadedness. EENT: No symptoms reported Cardiovascular: See HPI, Chest pain, Lightheaded Respiratory: See HPI, Short of breath Gastrointestinal: No symptoms reported Musculoskeletal: Other - Chronic right hip pain from avascular necrosis. -: Yes All other systems reviewed and negative Physical Exam - Vital signs Vitals: Temp Pulse Resp BP Pulse Ox 98.1 F 57 L 16 138/90 H 98 01/31/19 03:20 01/31/19 03:20 01/31/19 03:20 01/31/19 03:20 01/31/19 03:20 Interpretation: Normal - Notes Notes: GENERAL: Alert, interacts well. Appears mildly uncomfortable. HEAD: Normocephalic, atraumatic EYES: Pupils equal, round and reactive to light, extraocular movements intact. ENT: Oral mucosa moist, tongue midline. NECK: Full range of motion, supple, trachea midline. LUNGS: Clear to auscultation bilaterally, no wheezes, rales or rhonchi, no respiratory distress. Port in good position on left anterior chest, left anterior chest mildly tender to palpation, no lesions noted. HEART: Regular rate and rhythm, no murmurs, gallops, rubs. ABDOMEN: Soft, nontender, nondistended, bowel sounds present in all 4 quadrants. EXTREMITIES: Moves all 4 extremities spontaneously, no edema, radial and dorsalis pedis pulses 2/4 bilaterally. No cyanosis. NEUROLOGICAL: Alert and oriented x3, normal speech. PSYCH: Normal mood, normal affect. SKIN: Warm, Dry, normal turgor, no rashes or lesions noted. Course - Re-evaluation Re-evalutation: 01/31/19 09:15 CBC shows chronic anemia with hemoglobin 9.3, reticulocyte count is 0.270, absolute reticulocyte count is 9.23, chemistry showed low potassium at 3.5, bilirubin elevated at 2.2, troponin negative, chest x-ray shows no acute process. EKG is nonischemic. Patient states that he is usual starting dose for sickle cell pain was 2 mg of Dilaudid however that has recently changed to 3 mg of Dilaudid, I did verify this in the computer from prior recent visits to the infusion center through Dr. Stapleton. Patient has received 2 different doses of Dilaudid 3 mg accompanied by IV fluids, oxygen and Benadryl. Patient is now sleeping, when he is awakened he states his pain is down to 3 out of 5 and the only pain remaining in his chest. I do not see any evidence of acute coronary syndrome at this time. We will try 1 more dose of narcotic pain medication to see if we can resolve his chest pain, if he is still having chest pain we will have to discuss possible admission or transfer for acute chest syndrome. 01/31/19 09:43 Patient currently declines the third dose of pain medication, would like to finish letting the second liter of fluids infused and see how he feels at that point. 01/31/19 12:01 Patient received a third dose of pain medication, states that his pain has completely resolved, no further shortness of breath, agreeable to being discharged to home, will continue to use home pain medications as needed. - Vital Signs Vital signs: Temp Pulse Resp BP Pulse Ox 98 F 57 L 11 L 125/85 99 01/31/19 11:01 01/31/19 03:20 01/31/19 11:01 01/31/19 11:01 01/31/19 11:01 - Laboratory Result Diagrams: 01/31/19 04:06 01/31/19 04:06 Laboratory results interpreted by me: 01/31/19 01/31/19 04:06 04:06 RBC 2.92 L Hgb 9.3 L Hct 27.3 L RDW 24.2 H Reticulocyte # 0.270 H Retic Count (auto) 9.23 H Potassium 3.5 L BUN 6 L Total Bilirubin 2.2 H - EKG Interpretation by Me Additional EKG results interpreted by me: 01/31/19 09:16 EKG shows sinus rhythm at a rate of 59, normal axis, normal intervals, no ST segment elevations or depressions, rapid R wave progression per my interpretation. Discharge - Discharge Clinical Impression: Sickle cell crisis, Chest pain with low risk for cardiac etiology Condition: Stable Disposition: HOME, SELF-CARE Additional Instructions: Today we did not find any evidence of heart attack or acute chest syndrome. Megan uld your chest pain return, worsen, you develop shortness of breath or any fevers or any new or concerning symptoms please return to the emergency department. Referrals: BETH STAPLETON MD [Primary Care Provider] - Follow up as needed
[2019-01-31 12:17] VITALS: BP 138/86
== END 2019-01-31 12:18 | disposition home or self-care (01) ==
LOC: ER 02:47
DX: D57.00 Hb-SS disease with crisis, unspecified (principal); R07.9 Chest pain, unspecified; M25.50 Pain in unspecified joint; M54.9 Dorsalgia, unspecified; R06.02 Shortness of breath; R42 Dizziness and giddiness; Z79.899 Other long term (current) drug therapy
CPT/HCPCS: 93005; 36415; 85025; 85045; 80053; 84484; 71046; 93010; J1200; J1170; J7030; J1642; 96361; 96374; 96375; 96376; 99284

== ENCOUNTER 2019-02-02 05:16 | Inpatient (IN) | payer MEDICARE, MEDICAID ==
[2019-02-02] MEDS ORDERED: NORMAL SALINE 1000 ML 1,000 ML IV ONE ×2 (06:24→07:58)
[2019-02-02] MEDS ORDERED: HYDROMORPHONE HCL INJ/PF 2 MG/ML AMPULE IV ONE ×3 (06:24→09:59)
--- NOTE | 2019-02-02 06:28 | EKG REPORT ---
SEVERITY:- ABNORMAL ECG - SINUS RHYTHM LEFT VENTRICULAR HYPERTROPHY ANTERIOR Q WAVES, POSSIBLY DUE TO LVH : Confirmed by: Emre Montoya MD 02-Feb-2019 06:27:56
--- NOTE | 2019-02-02 06:30 | ER Document Report ---
ED General Pain - General Chief Complaint: Shortness Of Breath Stated Complaint: GENERALIZED BODY PAIN Time Seen by Provider: 02/02/19 06:11 Primary Care Provider: BETH STAPLETON MD [Primary Care Provider] - Follow up as needed Notes: 38-year-old male with history of sickle cell disease presents to the ER for gene ralized pain. Patient complains of pain in chest bilateral ribs joints arms and legs. He denies fever chills cough or sore throat he was here yesterday for the same. He states he continues having severe aching pain nothing really made it better or worse. He is tried his home oxycodone is been unsuccessful. The patient denies any falls or trauma denies abdominal pain has had some mild nausea but denies vomiting or diarrhea. Denies any sore throat fever hemoptysis or gland swelling. Rates the pain is severe. Nothing is made it better or worse. TRAVEL OUTSIDE OF THE [place] IN LAST 30 DAYS: No - Related Data Allergies/Adverse Reactions: famotidine [From Pepcid] Allergy (Severe, Verified 11/28/18 16:30) Anaphylaxis ketorolac tromethamine [From Toradol] Allergy (Severe, Verified 11/28/18 16:30) levofloxacin [From Levaquin] Allergy (Severe, Verified 11/28/18 16:30) meperidine HCl [From Demerol] Allergy (Severe, Verified 11/28/18 16:30) morphine [Morphine] Allergy (Severe, Verified 11/28/18 16:30) tramadol HCl [From Ultram] Allergy (Severe, Verified 11/28/18 16:30) amoxicillin [Amoxicillin] Allergy (Verified 11/28/18 16:30) fentanyl [Fentanyl] Allergy (Verified 11/28/18 16:30) latex [Latex] Allergy (Verified 11/28/18 16:30) ondansetron HCl [From Zofran] Allergy (Verified 11/28/18 16:30) Pork/Porcine Containing Products Allergy (Verified 11/28/18 16:30) Past Medical History - Social History Smoking Status: Never Smoker Family History: Reviewed & Not Pertinent, Hypertension Patient has suicidal ideation: No Patient has homicidal ideation: No - Past Medical History Cardiac Medical History: Denies: Hx Atrial Fibrillation, Hx Congestive Heart Failure, Hx Coronary Artery Disease Pulmonary Medical History: Reports: Hx Pneumonia Denies: Hx Asthma, Hx Bronchitis, Hx COPD, Hx Tuberculosis Neurological Medical History: Reports: Hx Seizures. Denies: Hx Migraine, Hx Parkinson's Disease Endocrine Medical History: Denies: Hx Diabetes Mellitus Type 1, Hx Diabetes Mellitus Type 2 Renal/ Medical History: Denies: Hx Peritoneal Dialysis GI Medical History: Denies: Hx Cirrhosis, Hx Hepatitis Musculoskeletal Medical History: Denies Hx Arthritis, Denies Hx Gout, Reports Hx Musculoskeletal Deformity - right hip avascular necrosis Skin Medical History: Denies Hx Eczema, Denies Hx Psoriasis Psychiatric Medical History: Reports: Hx Depression Infectious Medical History: Denies: Hx Hepatitis Past Surgical History: Reports: Hx Appendectomy, Hx Vascular Surgery - L port placement, Other - Port placement - Immunizations Immunizations up to date: Yes Hx Diphtheria, Pertussis, Tetanus Vaccination: Yes Hx Pneumococcal Vaccination: 02/20/11 Review of Systems - Review of Systems Constitutional: denies: Chills, Fever EENT: denies: Nose congestion, Nose discharge, Throat pain Cardiovascular: Chest pain. denies: Palpitations, Heart racing, Orthopnea, Dyspnea, Dizziness, Edema Respiratory: Short of breath. denies: Cough, Hemoptysis, Wheezing Gastrointestinal: denies: Abdominal pain, Nausea, Vomiting Genitourinary: denies: Dysuria, Hematuria Musculoskeletal: Joint pain. denies: Neck pain, Ankle swelling Hematologic/Lymphatic: Anemia Neurological/Psychological: denies: Headaches, Tingling -: Yes All other systems reviewed and negative Physical Exam - Vital signs Vitals: Temp Pulse Resp BP Pulse Ox 98.7 F 77 18 142/93 H 94 02/02/19 05:24 02/02/19 05:24 02/02/19 05:24 02/02/19 05:24 02/02/19 05:24 - Notes Notes: GENERAL_APPEARANCE: well_nourished, alert, cooperative, no_acute_distress, no_obvious_discomfort. VITALS: reviewed, see vital signs table. HEAD: no_swelling\tenderness on the head. EYES: PERRL, EOMI, conjunctiva_clear. NOSE: no_nasal_discharge. MOUTH: (-)decreased moisture. THROAT: no_tonsilar_inflammation, no_airway_obstruction. no_lymphadenopathy NECK: supple, no_neck_tenderness, (-)thyromegaly. BACK: no_back_tenderness. CHEST_WALL: Reproducible bilateral chest tenderness no crepitus no subcutaneous emphysema LUNGS: no_wheezing, no_rales, no_rhonchi, (-)accessory muscle use, good air exchange bilateral. HEART: normal_rate, normal_rhythm, normal_S1, normal_S2, (-)S3, (-)S4, no_murmur, no_rub. ABDOMEN: normal_BS, soft, no_abd_tenderness, (-)guarding, (-)rebound, no_organomegaly, no_abd_masses. EXTREMITIES:good pulses in all_extremities, diffuse joint pain but no swelling, negative calf tenderness, no_edema. SKIN: warm, dry, good_color, no_rash. MENTAL_STATUS: speech_clear, oriented_X_3, normal_affect, responds_appropriately to questions. Course - Re-evaluation Re-evalutation: 02/02/19 06:30 38-year-old male history of sickle cell disease presents with diffuse pain. His typical exacerbations are his joints and chest. He had a work-up yesterday we will recheck his blood we will give him IV fluids, oxygen and pain and nausea medicine. We will monitor him. He sees Dr. Mckenzie goodman for hematology. 02/02/19 10:06 Patient is feeling better after his third round of medicine fluids and Benadryl. Patient states that they usually give him 3 rounds and discharge him home. Patient otherwise is well there is nothing to suggest acute chest syndrome at this time I reviewed yesterday's labs and imaging reviewed today's. - Vital Signs Vital signs: Temp Pulse Resp BP Pulse Ox 98.7 F 77 14 139/96 H 100 02/02/19 05:24 02/02/19 05:24 02/02/19 07:02 02/02/19 07:02 02/02/19 07:02 - Laboratory Result Diagrams: 02/02/19 06:36 02/02/19 06:36 Laboratory results interpreted by me: 02/02/19 02/02/19 06:36 06:36 RBC 2.83 L Hgb 9.1 L Hct 26.4 L RDW 23.2 H Reticulocyte # 0.265 H Seg Neuts % (Manual) 79 H Lymphocytes % (Manual) 10 L Retic Count (auto) 9.36 H Potassium 3.4 L Creatinine 0.49 L Glucose 111 H Calcium 8.2 L Total Bilirubin 2.1 H - EKG Interpretation by Me EKG shows normal: Sinus rhythm Discharge - Discharge Clinical Impression: Sickle cell crisis Condition: Good Disposition: HOME, SELF-CARE Instructions: Sickle Cell Crisis ([facility]) Referrals: BETH STAPLETON MD [Primary Care Provider] - Follow up as needed
[2019-02-02] MEDS ORDERED: DIPHENHYDRAMINE HCL 50 MG/ML VIAL IV ONE ×3 (06:39→10:00)
[2019-02-02 06:49] LABS: ABSOLUTE RETICS # 0.265 10^6/uL (0.028-0.122); HEMATOCRIT 26.4 % (37.9-51.0); HEMOGLOBIN 9.1 g/dL (13.5-17.0); MEAN CORPUSCULAR HEMOGLOBIN 32.2 pg (27.0-33.4); MEAN CORPUSCULAR HGB CONC 34.5 g/dL (32.0-36.0); MEAN CORPUSCULAR VOLUME 93 fl (80-97); PLATELET COUNT 284 10^3/uL (150-450); RED BLOOD COUNT 2.83 10^6/uL (4.35-5.55); RED CELL DISTRIBUTION WIDTH 23.2 % (11.5-14.0); RETICULOCYTE COUNT (AUTO) 9.36 % (0.66-2.85); WHITE BLOOD COUNT 8.7 10^3/uL (4.0-10.5)
[2019-02-02 07:02] LABS: ALBUMIN 3.9 g/dL (3.5-5.0); ALKALINE PHOSPHATASE 92 U/L (38-126); ANION GAP 8 (5-19); ASPARTATE AMINO TRANSFERASE 28 U/L (17-59); BILIRUBIN,DIRECT 0.1 mg/dL (0.0-0.4); BILIRUBIN,TOTAL 2.1 mg/dL (0.2-1.3); BLOOD UREA NITROGEN 8 mg/dL (7-20); CALCIUM 8.2 mg/dL (8.4-10.2); CARBON DIOXIDE 28 mmol/L (22-30); CHLORIDE 102 mmol/L (98-107); GLUCOSE 111 mg/dL (75-110); POTASSIUM 3.4 mmol/L (3.6-5.0); TOTAL PROTEIN 7.3 g/dL (6.3-8.2)
[2019-02-02 07:12] LABS: ABSOLUTE LYMPHOCYTES# (MANUAL) 0.9 10^3/uL (0.5-4.7); BASOPHILS % (MANUAL) 0 % (0-2); EOSINOPHILS % (MANUAL) 0 % (0-6); LYMPHOCYTES % (MANUAL) 10 % (13-45); MONOCYTES % (MANUAL) 11 % (3-13); NUCLEATED RED BLOOD CELLS 4 /100 WBC (0); SEGMENTED NEUTROPHILS % (MAN) 79 % (42-78); TOTAL CELLS COUNTED 100
[2019-02-02 07:13] LABS: ANISOCYTOSIS 3+; POIKILOCYTOSIS 2+; SICKLE RED CELLS 1+; TARGET CELLS 1+
[2019-02-02 07:14] LABS: PLATELET COMMENT ADEQUATE
[2019-02-02] MEDS ORDERED: POTASSIUM CHLORIDE 10 MEQ CAPSULE.ER PO ONE (08:26)
[2019-02-02] MEDS ORDERED: MAGNESIUM HYDROXIDE SUSP 30 ML UDCUP PO PRN (12:33)
[2019-02-02] MEDS ORDERED: ACETAMINOPHEN 325 MG TABLET PO PRN (12:33)
[2019-02-02] MEDS ORDERED: MAG HYDROX/AL HYDROX/SIMETH SUSP 30 ML UDCUP PO PRN (12:33)
--- NOTE | 2019-02-02 12:33 | PDOC H&P ---
History of Present Illness Admission Date/PCP: 02/02/19 11:49 BETH STAPLETON MD Patient complains of: Sickle cell crisis History of Present Illness: MARISA GARBER is a 38 year old male Past Medical History Cardiac Medical History: Denies: Atrial Fibrillation, Congestive Heart Failure, Coronary Artery Disease Pulmonary Medical History: Reports: Pneumonia Denies: Asthma, Bronchitis, Chronic Obstructive Pulmonary Disease (COPD), Tuberculosis Neurological Medical History: Reports: Seizures Denies: Migraine Endocrine Medical History: Denies: Diabetes Mellitus Type 1, Diabetes Mellitus Type 2 GI Medical History: Denies: Cirrhosis, Hepatitis Musculoskeltal Medical History: Denies: Arthritis, Gout Skin Medical History: Denies: Eczema, Psoriasis Psychiatric Medical History: Reports: Depression Hematology: Reports: Anemia, Sickle Cell Disease Denies: Hemophilia, Bleeding Tendencies Past Surgical History Past Surgical History: Reports: Appendectomy, Vascular Surgery - L port placement, Other - Port placement Social History Information Source: Patient, [facility] Records Lives with: Family Smoking Status: Never Smoker Electronic Cigarette use?: No Frequency of Alcohol Use: None Hx Recreational Drug Use: No Drugs: None Hx Prescription Drug Abuse: No - Advance Directive Resuscitation Status: Full Code Family History Family History: Hypertension Parental Family History Reviewed: Yes Children Family History Reviewed: Yes Sibling(s) Family History Reviewed.: Yes Medication/Allergy Home Medications: Docusate Sodium [Colace 100 mg Capsule] 100 mg PO DAILYP PRN 02/02/19 Folic Acid [Folvite 1 mg Tablet] 1 mg PO DAILY 02/02/19 Hydroxyurea [Hydrea 500 Mg Capsule] 1,500 mg PO DAILY 02/02/19 Ibuprofen [Motrin 600 mg Tablet] 600 mg PO Q6HP PRN 02/02/19 Methadone HCl [Dolophine Hcl] 5 mg PO Q8 02/02/19 Oxycodone HCl [Oxycodone HCl 10 MG Tablet] 10 mg PO Q4HP PRN 02/02/19 Sennosides/Docusate 8.6-50 mg [Senna Plus Tablet] 1 tab PO BIDP PRN 02/02/19 Allergies/Adverse Reactions: famotidine [From Pepcid] Allergy (Severe, Verified 11/28/18 16:30) Anaphylaxis ketorolac tromethamine [From Toradol] Allergy (Severe, Verified 11/28/18 16:30) levofloxacin [From Levaquin] Allergy (Severe, Verified 11/28/18 16:30) meperidine HCl [From Demerol] Allergy (Severe, Verified 11/28/18 16:30) morphine [Morphine] Allergy (Severe, Verified 11/28/18 16:30) tramadol HCl [From Ultram] Allergy (Severe, Verified 11/28/18 16:30) amoxicillin [Amoxicillin] Allergy (Verified 11/28/18 16:30) fentanyl [Fentanyl] Allergy (Verified 11/28/18 16:30) latex [Latex] Allergy (Verified 11/28/18 16:30) ondansetron HCl [From Zofran] Allergy (Verified 11/28/18 16:30) Pork/Porcine Containing Products Allergy (Verified 11/28/18 16:30) Review of Systems Constitutional: PRESENT: weakness. ABSENT: chills, fatigue, headache(s) Eyes: ABSENT: visual disturbances Ears: ABSENT: hearing changes Nose, Mouth, and Throat: ABSENT: mouth pain, sore throat Cardiovascular: ABSENT: chest pain, edema, palpitations Respiratory: ABSENT: cough, hemoptysis Gastrointestinal: ABSENT: constipation, diarrhea, dysphagia, nausea, vomiting Genitourinary: ABSENT: dysuria, hematuria Musculoskeletal: ABSENT: joint swelling Integumentary: ABSENT: diaphoresis, lesions, pruritus Neurological: PRESENT: abnormal gait - Secondary to pain Psychiatric: PRESENT: depression. ABSENT: hallucinations Endocrine: ABSENT: cold intolerance, heat intolerance Hematologic/Lymphatic: ABSENT: easy bleeding, easy bruising Physical Exam Vital Signs: Temp Pulse Resp BP Pulse Ox 99.2 F 77 14 137/102 H 100 02/02/19 11:01 02/02/19 05:24 02/02/19 11:02 02/02/19 11:02 02/02/19 11:02 Intake & Output 02/01/19 02/02/19 02/03/19 06:59 06:59 06:59 Intake Total 1999 Balance 1999 Weight 86.2 kg General appearance: PRESENT: cooperative, severe distress, well-developed Head exam: PRESENT: atraumatic, normocephalic Mouth exam: PRESENT: dry mucosa, tongue midline Teeth exam: ABSENT: poor dentation Respiratory exam: PRESENT: clear to auscultation anastasiya, symmetrical, unlabored. ABSENT: accessory muscle use, rales, rhonchi, tachypnea, wheezes Cardiovascular exam: PRESENT: RRR, +S1, +S2, other - S3 Pulses: PRESENT: normal radial pulses, +1 pedal pulses bilateral GI/Abdominal exam: PRESENT: normal bowel sounds, soft. ABSENT: distended, tenderness Rectal exam: PRESENT: deferred Gentrourinary exam: ABSENT: indwelling catheter Extremities exam: PRESENT: tenderness. ABSENT: pedal edema Musculoskeletal exam: PRESENT: normal inspection Neurological exam: PRESENT: alert, awake, oriented to person, oriented to place, oriented to time, oriented to situation, CN II-XII grossly intact Psychiatric exam: PRESENT: flat affect. ABSENT: agitated, anxious Focused psych exam: ABSENT: delusional, restlessness Skin exam: PRESENT: dry, warm Results Laboratory Results: 02/02/19 06:36 02/02/19 06:36 02/02/19 02/02/19 06:36 06:36 WBC 8.7 RBC 2.83 L Hgb 9.1 L Hct 26.4 L MCV 93 MCH 32.2 MCHC 34.5 RDW 23.2 H Plt Count 284 Seg Neutrophils % Not Reportable Retic Count (auto) 9.36 H Sodium 138.2 Potassium 3.4 L Chloride 102 Carbon Dioxide 28 Anion Gap 8 BUN 8 Creatinine 0.49 L Est GFR ( Amer) > 60 Glucose 111 H Calcium 8.2 L Total Bilirubin 2.1 H AST 28 Alkaline Phosphatase 92 Total Protein 7.3 Albumin 3.9 02/02/19 06:36 Troponin I < 0.012 Assessment and Plan - Diagnosis (1) Sickle cell crisis Is this a current diagnosis for this admission?: Yes Plan: 02/02/2019-during his last few visits pain management was by hydromorphone 3 mg IV every 2 hours as needed. He also gets Benadryl 25 mg IV every 4 hours as needed. For his sickle cell he is on hydroxyurea and folic acid. We will continue aggressive IV fluids and monitor his laboratory studies. (2) Opiate dependence, continuous Is this a current diagnosis for this admission?: Yes Plan: 02/02/2019-as noted above he has a regimen that typically works for him. Unfortunately his only amount of time in his body will acclimate to this dose and he will need more. He has a long history of opiate use for his sickle cell pain. - Time Time Spent with patient: 35 or more minutes Medications reviewed and adjusted accordingly: Yes Anticipated discharge: Home - Inpatient Certification Based on my medical assessment, after consideration of the patient's comorbidities, presenting symptoms, or acuity I expect that the services needed warrant INPATIENT care.: Yes I certify that my determination is in accordance with my understanding of Medicare's requirements for reasonable and necessary INPATIENT services [42 CFR 412.3e].: Yes Medical Necessity: Need For IV Fluids, Need for Pain Control
[2019-02-02] MEDS: HYDROMORPHONE HCL INJ/PF 2 MG/ML AMPULE IV PRN ×4 (13:44→20:59)
[2019-02-02] MEDS: DIPHENHYDRAMINE HCL 50 MG/ML VIAL IV PRN ×2 (13:44→17:51)
[2019-02-02] MEDS ORDERED: SENNOSIDES/DOCUSATE 8.6-50 MG 1 EACH TABLET PO PRN (16:39)
[2019-02-02] MEDS ORDERED: IBUPROFEN 600 MG TABLET PO PRN (16:39)
[2019-02-02] MEDS ORDERED: DOCUSATE SODIUM 100 MG CAPSULE PO PRN (16:39)
[2019-02-02] MEDS: DOCUSATE SODIUM 100 MG CAPSULE PO SCH (17:19)
[2019-02-03] MEDS: HYDROMORPHONE HCL INJ/PF 2 MG/ML AMPULE IV PRN ×11 (00:04→23:51)
[2019-02-03] MEDS: DIPHENHYDRAMINE HCL 50 MG/ML VIAL IV PRN ×6 (00:05→23:50)
[2019-02-03] MEDS: NORMAL SALINE 1000 ML 1,000 ML IV PRN ×3 (02:56→17:36)
[2019-02-03 04:30] LABS: HEMATOCRIT 26.8 % (37.9-51.0); HEMOGLOBIN 9.3 g/dL (13.5-17.0); MEAN CORPUSCULAR HEMOGLOBIN 32.3 pg (27.0-33.4); MEAN CORPUSCULAR HGB CONC 34.8 g/dL (32.0-36.0); MEAN CORPUSCULAR VOLUME 93 fl (80-97); PLATELET COUNT 284 10^3/uL (150-450); RED BLOOD COUNT 2.88 10^6/uL (4.35-5.55); RED CELL DISTRIBUTION WIDTH 22.7 % (11.5-14.0); WHITE BLOOD COUNT 8.8 10^3/uL (4.0-10.5)
[2019-02-03 04:42] LABS: ANION GAP 6 (5-19); BLOOD UREA NITROGEN 7 mg/dL (7-20); CALCIUM 8.8 mg/dL (8.4-10.2); CARBON DIOXIDE 32 mmol/L (22-30); CHLORIDE 100 mmol/L (98-107); GLUCOSE 131 mg/dL (75-110); POTASSIUM 4.1 mmol/L (3.6-5.0)
[2019-02-03 04:50] LABS: ABSOLUTE LYMPHOCYTES# (MANUAL) 1.8 10^3/uL (0.5-4.7); ABSOLUTE MONOCYTES # (MANUAL) 0.5 10^3/uL (0.1-1.4); ANISOCYTOSIS 3+; BASOPHILS % (MANUAL) 1 % (0-2); EOSINOPHILS % (MANUAL) 2 % (0-6); HYPOCHROMASIA 1+; LYMPHOCYTES % (MANUAL) 21 % (13-45); MONOCYTES % (MANUAL) 6 % (3-13); NUCLEATED RED BLOOD CELLS 1 /100 WBC (0); POIKILOCYTOSIS 2+; POLYCHROMASIA 1+; SEGMENTED NEUTROPHILS % (MAN) 70 % (42-78); TOTAL CELLS COUNTED 100
[2019-02-03 04:51] LABS: OVALOCYTES 1+; PLATELET COMMENT ADEQUATE; SCHISTOCYTES SLIGHT; TARGET CELLS SLIGHT
[2019-02-03] MEDS: DOCUSATE SODIUM 100 MG CAPSULE PO SCH ×2 (10:30→17:39)
[2019-02-03] MEDS: FOLIC ACID 1 MG TABLET PO SCH (10:30)
[2019-02-03] MEDS: HYDROXYUREA 500 MG CAPSULE PO SCH (10:31)
--- NOTE | 2019-02-03 11:36 | PDOC PROGRESS REPORT ---
Subjective Progress Note for:: 02/03/19 Subjective:: 02/03/2019 38-year-old gentleman known due to his sickle cell disease admitted yesterday for rib pain. No chest x-ray has been done yet this will be ordered today. Patient currently has Dilaudid 3 mg IV every 2 hours and ibuprofen 600 mg every 6 hours as well as Tylenol as needed ordered for pain Oscar site count appears to be about his average of 9.36. It has been as high as 14 in the past. Reason For Visit: SICKLE CELL Physical Exam Vital Signs: Temp Pulse Resp BP Pulse Ox 98.2 F 101 H 19 150/81 H 94 02/03/19 08:00 02/03/19 08:00 02/03/19 08:00 02/03/19 08:00 02/03/19 08:00 Intake & Output 02/02/19 02/03/19 02/04/19 06:59 06:59 06:59 Intake Total 3040 1380 Output Total 1000 400 Balance 2040 980 Weight 86.2 kg General appearance: PRESENT: mild distress Respiratory exam: PRESENT: rales, other - Scattered Cardiovascular exam: PRESENT: RRR, other - Patient states he has rib pain with deep inspiration and expiration, generalized, out of proportion to palpation. ABSENT: diastolic murmur, rubs, systolic murmur Neurological exam: PRESENT: alert, awake, oriented to person, oriented to place, oriented to time, oriented to situation, CN II-XII grossly intact. ABSENT: motor sensory deficit Psychiatric exam: PRESENT: anxious, unusual affect, other - Chronic pain affect Results Laboratory Results: 02/03/19 03:20 02/03/19 03:20 02/03/19 02/03/19 03:20 03:20 WBC 8.8 RBC 2.88 L Hgb 9.3 L Hct 26.8 L MCV 93 MCH 32.3 MCHC 34.8 RDW 22.7 H Plt Count 284 Seg Neutrophils % Not Reportable Sodium 138.1 Potassium 4.1 Chloride 100 Carbon Dioxide 32 H Anion Gap 6 BUN 7 Creatinine 0.59 Est GFR ( Amer) > 60 Glucose 131 H Calcium 8.8 Magnesium 1.9 02/02/19 06:36 Troponin I < 0.012 Assessment and Plan - Diagnosis (1) Chronic pain Is this a current diagnosis for this admission?: Yes Plan: Patient has multiple admissions for chronic pain. Patient will have a chest x- ray done today to make sure he does not have pneumonia, or some other cardiopulmonary etiology for his rib pain. Patient denies trauma (2) Chest pain with low risk for cardiac etiology Is this a current diagnosis for this admission?: Yes Plan: 02/03/2019 patient is complaining of chest wall pain, rib pain. Patient denies trauma (3) Myalgia Is this a current diagnosis for this admission?: Yes Plan: Generalized body aches and pains - Plan Summary Summary: I have ordered a two-view chest x-ray for today. I have reviewed his medications which appear to be appropriate, will do serial labs Continue IV fluids This morning's pulse rate is 101 on admission it was 81 Morning's blood pressure is 127/81 on admission it was 129/86 O2 saturations 94% on room air, is 94% on admission all day yesterday it was at 100% - Time Time Spent with patient: 35 or more minutes
--- NOTE | 2019-02-03 15:32 | RADIOLOGY REPORT (SQ) ---
EXAM DESCRIPTION: CHEST 2 VIEWS COMPLETED DATE/TIME: 02/03/2019 3:22 pm REASON FOR STUDY: Rib pain ,sickle cell COMPARISON: 01/31/2019. EXAM PARAMETERS: NUMBER OF VIEWS: two views TECHNIQUE: Digital Frontal and Lateral radiographic views of the chest acquired. RADIATION DOSE: NA LIMITATIONS: none FINDINGS: LUNGS AND PLEURA: Worsening bilateral infiltrates and pleural effusions. MEDIASTINUM AND HILAR STRUCTURES: No masses or contour abnormalities. HEART AND VASCULAR STRUCTURES: Cardiomegaly unchanged. BONES: No acute findings. HARDWARE: Vascular port. OTHER: No other significant finding. IMPRESSION: WORSENING BILATERAL INFILTRATES AND PLEURAL EFFUSIONS. TECHNICAL DOCUMENTATION: JOB ID: [id number] [employer]- All Rights Reserved Reading location - IP/workstation name: [email or web address]
[2019-02-04] MEDS: HYDROMORPHONE HCL INJ/PF 2 MG/ML AMPULE IV PRN ×10 (01:53→22:55)
[2019-02-04] MEDS: DIPHENHYDRAMINE HCL 50 MG/ML VIAL IV PRN ×5 (04:29→20:34)
[2019-02-04] MEDS: DOCUSATE SODIUM 100 MG CAPSULE PO SCH ×2 (09:09→18:06)
[2019-02-04] MEDS: FOLIC ACID 1 MG TABLET PO SCH (09:09)
[2019-02-04] MEDS: HYDROXYUREA 500 MG CAPSULE PO SCH (09:09)
--- NOTE | 2019-02-04 10:30 | PDOC PROGRESS REPORT ---
Subjective Progress Note for:: 02/04/19 Subjective:: 02/03/2019 38-year-old gentleman known due to his sickle cell disease admitted yesterday for rib pain. No chest x-ray has been done yet this will be ordered today. Patient currently has Dilaudid 3 mg IV every 2 hours and ibuprofen 600 mg every 6 hours as well as Tylenol as needed ordered for pain Reticulocyte count appears to be about his average of 9.36. It has been as high as 14 in the past. 02/04/2019 Patient's vital signs this morning temperature 98.7 pulse 100 this is been running in the 90s, blood pressure stable 139/76 Admission chest x-ray is abnormal I am going to order a CT angiogram of the chest since he is complaining of rib pain Reason For Visit: SICKLE CELL Physical Exam Vital Signs: Temp Pulse Resp BP Pulse Ox 98.7 F 100 16 139/76 H 99 02/04/19 07:28 02/04/19 07:28 02/04/19 07:28 02/04/19 07:28 02/04/19 07:28 Intake & Output 02/03/19 02/04/19 02/05/19 06:59 06:59 06:59 Intake Total 3040 5007 Output Total 1000 3205 Balance 2040 1802 Weight 89.1 kg General appearance: PRESENT: mild distress, other - Patient is actually sleeping, which the nurse reports she is doing more of probably secondary to pain medication Respiratory exam: PRESENT: rales - At the bases Cardiovascular exam: PRESENT: RRR. ABSENT: diastolic murmur, rubs, systolic murmur Neurological exam: PRESENT: alert, awake, oriented to person, oriented to place, oriented to time, oriented to situation, CN II-XII grossly intact. ABSENT: motor sensory deficit Psychiatric exam: PRESENT: appropriate affect, normal mood. ABSENT: homicidal ideation, suicidal ideation Results Laboratory Results: 02/03/19 03:20 02/03/19 03:20 02/02/19 06:36 Troponin I < 0.012 Impressions: Chest X-Ray 02/03/19 00:00 IMPRESSION: WORSENING BILATERAL INFILTRATES AND PLEURAL EFFUSIONS. Assessment and Plan - Diagnosis (1) Chronic pain Is this a current diagnosis for this admission?: Yes Plan: Patient has multiple admissions for chronic pain. Patient will have a chest x- ray done today to make sure he does not have pneumonia, or some other cardiopulmonary etiology for his rib pain. Patient denies trauma 02/04/2019 graph patient currently has Dilaudid 3 mg IV every 2 hours as needed, Benadryl 25 mg IV every 4 hours as needed, Motrin 600 mg every 6 hours as needed. At the present time this seems to be adequate (2) Chest pain with low risk for cardiac etiology Is this a current diagnosis for this admission?: Yes Plan: 02/03/2019 patient is complaining of chest wall pain, rib pain. Patient denies trauma 02/04/2019 patient's pain does not sound to be cardiac in nature more pleuritic more chronic (3) Myalgia Is this a current diagnosis for this admission?: Yes Plan: Generalized body aches and pains of 02/04/2019 patient has multiple frequent admissions for chronic pain Will pursue CT angiogram today for abnormal admission chest x-ray. - Plan Summary Summary: I have ordered a two-view chest x-ray for today. I have reviewed his medica tions which appear to be appropriate, will do serial labs Continue IV fluids This morning's pulse rate is 101 on admission it was 81 Morning's blood pressure is 127/81 on admission it was 129/86 O2 saturations 94% on room air, is 94% on admission all day yesterday it was at 100% 02/04/2019 chest x-ray yesterday was abnormal showing bibasilar traits, will proceed with CT angiogram as well as BNP today - Time Time Spent with patient: 35 or more minutes
[2019-02-05] MEDS: HYDROMORPHONE HCL INJ/PF 2 MG/ML AMPULE IV PRN ×8 (01:19→21:50)
[2019-02-05] MEDS: DIPHENHYDRAMINE HCL 50 MG/ML VIAL IV PRN ×5 (01:20→21:49)
[2019-02-05] MEDS: HYDROXYUREA 500 MG CAPSULE PO SCH (10:00)
[2019-02-05] MEDS: FOLIC ACID 1 MG TABLET PO SCH (10:00)
[2019-02-05] MEDS: DOCUSATE SODIUM 100 MG CAPSULE PO SCH ×2 (10:00→17:08)
--- NOTE | 2019-02-05 13:22 | RADIOLOGY REPORT (SQ) ---
EXAM DESCRIPTION: CT CHEST WITHOUT COMPLETED DATE/TIME: 02/05/2019 12:20 pm REASON FOR STUDY: abnormal CXR, rib pain D63.8 ANEMIA IN OTHER CHRONIC DISEASES CLASSIFIED [facility] E COMPARISON: 12/31/2018 TECHNIQUE: CT scan performed of the chest without intravenous contrast. Images reviewed with lung, soft tissue and bone windows. Reconstructed coronal and sagittal MPR images reviewed. All images st ored on PACS. All CT scanners at this facility use dose modulation, iterative reconstruction, and/or weight based d osing when appropriate to reduce radiation dose to as low as reasonably achievable (ALARA). [facility]: Dose Right [facility]: CareDose [facility]: Dose Right [facility]: Teradose 4D [facility]: [employer] RADIATION DOSE: CT Rad equipment meets quality standard of care and radiation dose reduction techniq ues were employed. CTDIvol: 8.4 mGy. DLP: 289 mGy-cm. mGy. LIMITATIONS: No technical limitations. FINDINGS: LUNGS AND PLEURA: There is limited opacification in the posterior aspect of the left upper lobe and in the lingula. There is dense opacification in the left lower lobe. Air bronchograms are present. There are chronic interstitial and subpleural changes in the right base. HILAR AND MEDIASTINAL STRUCTURES: No identified masses or abnormal nodes. No obvious aneurysm. HEART AND VASCULAR STRUCTURES: No aneurysm. No pericardial effusion. UPPER ABDOMEN: No significant findings. Limited exam. THYROID AND OTHER SOFT TISSUES: No masses. No adenopathy. BONES: No significant finding. HARDWARE: None in the chest. OTHER: No other significant findings. IMPRESSION: Airspace disease in the left upper lobe posteriorly, lingula, and left lower lobe, pneum onia versus atelectasis. These findings are increased compared to the study from 12/31/2018. Chronic interstitial and subpleural changes in the right base. TECHNICAL DOCUMENTATION: JOB ID: [id number] Quality ID # [id number]: Final reports with documentation of one or more dose reduction techniques (e.g., Au tomated exposure control, adjustment of the mA and/or kV according to patient size, use of iterative reconstruction technique) 2010 [employer]- All Rights Reserved Reading location - IP/workstation name: [email or web address]
--- NOTE | 2019-02-05 13:57 | PDOC PROGRESS REPORT ---
Subjective Progress Note for:: 02/05/19 Subjective:: 02/03/2019 38-year-old gentleman known due to his sickle cell disease admitted yesterday for rib pain. No chest x-ray has been done yet this will be ordered today. Patient currently has Dilaudid 3 mg IV every 2 hours and ibuprofen 600 mg every 6 hours as well as Tylenol as needed ordered for pain Reticulocyte count appears to be about his average of 9.36. It has been as high as 14 in the past. 02/04/2019 Patient's vital signs this morning temperature 98.7 pulse 100 this is been running in the 90s, blood pressure stable 139/76 Admission chest x-ray is abnormal I am going to order a CT angiogram of the chest since he is complaining of rib pain 02/05/2019 CT scan was performed without contrast of the chest. This showed some chronic changes but also increased findings in the left upper lobe lingula and lower lobe on the left, chronic changes in the right base. Because of this I started the patient on IV Zithromax. He is allergic to penicillins as well as quinolones. Pain meds seems to be doing okay he is having less pain today than yesterday. Will add baclofen to his daily regimen a scheduled drug, add his methadone back in to the scheduled drugs, and decrease his Dilaudid ER and dosing Reason For Visit: SICKLE CELL Physical Exam Vital Signs: Temp Pulse Resp BP Pulse Ox 98.5 F 87 16 132/82 H 100 02/05/19 07:55 02/05/19 07:55 02/05/19 00:19 02/05/19 07:55 02/05/19 07:55 Intake & Output 02/04/19 02/05/19 02/06/19 06:59 06:59 06:59 Intake Total 5007 3622 Output Total 3205 3550 Balance 1802 72 Weight 89.1 kg 89 kg General appearance: PRESENT: mild distress Respiratory exam: PRESENT: rales - Bases, other - Patient is able to take a deeper inspiration and expiration today because of less pain Cardiovascular exam: PRESENT: RRR. ABSENT: diastolic murmur, rubs, systolic murmur Neurological exam: PRESENT: alert, awake, oriented to person, oriented to place, oriented to time, oriented to situation, CN II-XII grossly intact. ABSENT: motor sensory deficit Psychiatric exam: PRESENT: appropriate affect, normal mood, other - Patient is not demanding medication so far on this admission. ABSENT: homicidal ideation, suicidal ideation Results Laboratory Results: 02/03/19 03:20 02/03/19 03:20 02/02/19 02/04/19 06:36 11:37 Troponin I < 0.012 NT-Pro-B Natriuret Pep 25 Impressions: Chest X-Ray 02/03/19 00:00 IMPRESSION: WORSENING BILATERAL INFILTRATES AND PLEURAL EFFUSIONS. Chest CT 02/05/19 08:00 IMPRESSION: Airspace disease in the left upper lobe posteriorly, lingula, and left lower lobe, pneumonia versus atelectasis. These findings are increased compared to the study from 12/31/2018. Chronic interstitial and subpleural changes in the right base. Assessment and Plan - Diagnosis (1) Chronic pain Is this a current diagnosis for this admission?: Yes (2) Chest pain with low risk for cardiac etiology Is this a current diagnosis for this admission?: Yes (3) Myalgia Is this a current diagnosis for this admission?: Yes - Plan Summary Summary: I have ordered a two-view chest x-ray for today. I have reviewed his medications which appear to be appropriate, will do serial labs Continue IV fluids This morning's pulse rate is 101 on admission it was 81 Morning's blood pressure is 127/81 on admission it was 129/86 O2 saturations 94% on room air, is 94% on admission all day yesterday it was at 100% 02/04/2019 chest x-ray yesterday was abnormal showing bibasilar traits, will proceed with CT angiogram as well as BNP today 02/05/2019 CT scan of the chest showed chronic changes plus new findings left upper and lower lobe, worse since previous scan. We will add IV Zithromax. Also add baclofen as well as patient's methadone back to schedule drugs, and decrease the frequency of IV Dilaudid - Time Time Spent with patient: 25-34 minutes
[2019-02-05] MEDS: METHADONE HCL 10 MG TABLET PO SCH ×2 (15:09→21:55)
[2019-02-05] MEDS: AZITHROMYCIN 500 MG in DEXTROSE 5%-WATER 250 ML IV SCH (17:08)
[2019-02-05] MEDS: BACLOFEN 10 MG TABLET PO SCH (21:55)
[2019-02-06] MEDS: DIPHENHYDRAMINE HCL 50 MG/ML VIAL IV PRN ×5 (02:46→23:31)
[2019-02-06] MEDS: HYDROMORPHONE HCL INJ/PF 2 MG/ML AMPULE IV PRN ×7 (02:48→23:31)
[2019-02-06] MEDS: METHADONE HCL 10 MG TABLET PO SCH ×3 (06:57→22:06)
--- NOTE | 2019-02-06 08:37 | PDOC CONSULTATION ---
Consultation Consult Date: 02/06/19 Attending physician:: MARITZA WILLIS Provider Consulted: BETH STAPLETON Consult reason:: Sickle cell pain crisis, probable mild acute chest syndrome History of Present Illness Admission Date/PCP: 02/02/19 12:45 BETH STAPLETON MD Patient complains of: Continued chest pain and shortness of breath History of Present Illness: MARISA GARBER is a 38 year old male with known history of sickle cell disease here with severe chest pain and difficulty breathing, on last admission he did deal with what appeared to be acute chest crisis, but did not really seem to get over it as quickly as he had previously, as an outpatient we are giving him IV hydration and IV Dilaudid on a daily basis as an outpatient, but unfortunately the pain increased and became very severe and patient was admitted. He still having quite a bit of pain and we need to increase his pain medication today. Past Medical History Cardiac Medical History: Denies: Atrial Fibrillation, Congestive Heart Failure, Coronary Artery Disease Pulmonary Medical History: Reports: Pneumonia Denies: Asthma, Bronchitis, Chronic Obstructive Pulmonary Disease (COPD), Tuberculosis Neurological Medical History: Reports: Seizures Denies: Migraine Endocrine Medical History: Denies: Diabetes Mellitus Type 1, Diabetes Mellitus Type 2 GI Medical History: Denies: Cirrhosis, Hepatitis Musculoskeltal Medical History: Denies: Arthritis, Gout Skin Medical History: Denies: Eczema, Psoriasis Psychiatric Medical History: Reports: Depression Hematology: Reports: Anemia, Sickle Cell Disease Denies: Hemophilia, Bleeding Tendencies Past Surgical History Past Surgical History: Reports: Appendectomy, Vascular Surgery - L port placement, Other - Port placement Social History Information Source: Patient Lives with: Family Smoking Status: Never Smoker Electronic Cigarette use?: No Last Time Smoked: "15 years ago" and reports he can't remember how much he used to smoke Frequency of Alcohol Use: None Hx Recreational Drug Use: No Drugs: None Hx Prescription Drug Abuse: No - Advance Directive Resuscitation Status: Full Code Family History Family History: Hypertension Parental Family History Reviewed: Yes Children Family History Reviewed: Yes Sibling(s) Family History Reviewed.: Yes Medication/Allergy Home Medications: Docusate Sodium [Colace 100 mg Capsule] 100 mg PO DAILYP PRN 02/02/19 Folic Acid [Folvite 1 mg Tablet] 1 mg PO DAILY 02/02/19 Hydroxyurea [Hydrea 500 Mg Capsule] 1,500 mg PO DAILY 02/02/19 Ibuprofen [Motrin 600 mg Tablet] 600 mg PO Q6HP PRN 02/02/19 Methadone HCl [Dolophine Hcl] 5 mg PO Q8 02/02/19 Oxycodone HCl [Oxycodone HCl 10 MG Tablet] 10 mg PO Q4HP PRN 02/02/19 Sennosides/Docusate 8.6-50 mg [Senna Plus Tablet] 1 tab PO BIDP PRN 02/02/19 Allergies/Adverse Reactions: famotidine [From Pepcid] Allergy (Severe, Verified 11/28/18 16:30) Anaphylaxis ketorolac tromethamine [From Toradol] Allergy (Severe, Verified 11/28/18 16:30) levofloxacin [From Levaquin] Allergy (Severe, Verified 11/28/18 16:30) meperidine HCl [From Demerol] Allergy (Severe, Verified 11/28/18 16:30) morphine [Morphine] Allergy (Severe, Verified 11/28/18 16:30) tramadol HCl [From Ultram] Allergy (Severe, Verified 11/28/18 16:30) amoxicillin [Amoxicillin] Allergy (Verified 11/28/18 16:30) fentanyl [Fentanyl] Allergy (Verified 11/28/18 16:30) latex [Latex] Allergy (Verified 11/28/18 16:30) ondansetron HCl [From Zofran] Allergy (Verified 11/28/18 16:30) Pork/Porcine Containing Products Allergy (Verified 11/28/18 16:30) Review of Systems Constitutional: ABSENT: chills, fever(s), headache(s), weight gain, weight loss Eyes: ABSENT: visual disturbances Ears: ABSENT: hearing changes Cardiovascular: ABSENT: chest pain, dyspnea on exertion, edema, orthropnea, palpitations Respiratory: ABSENT: cough, hemoptysis Gastrointestinal: ABSENT: abdominal pain, constipation, diarrhea, hematemesis, hematochezia, nausea, vomiting Genitourinary: ABSENT: dysuria, hematuria Musculoskeletal: ABSENT: joint swelling Integumentary: ABSENT: rash, wounds Neurological: ABSENT: abnormal gait, abnormal speech, confusion, dizziness, focal weakness, syncope Psychiatric: ABSENT: anxiety, depression, homidical ideation, suicidal ideation Endocrine: ABSENT: cold intolerance, heat intolerance, polydipsia, polyuria Hematologic/Lymphatic: ABSENT: easy bleeding, easy bruising Physical Exam Vital Signs: Temp Pulse Resp BP Pulse Ox 98.3 F 74 14 126/79 H 100 02/06/19 00:04 02/06/19 00:04 02/06/19 00:04 02/06/19 00:04 02/06/19 00:04 Intake & Output 02/05/19 02/06/19 02/07/19 06:59 06:59 06:59 Intake Total 3622 847 Output Total 3550 925 Balance 72 -78 Weight 89 kg 89 kg General appearance: PRESENT: no acute distress, well-developed, well-nourished Head exam: PRESENT: atraumatic, normocephalic Eye exam: PRESENT: conjunctiva pink, EOMI, PERRLA. ABSENT: scleral icterus Ear exam: PRESENT: normal external ear exam Mouth exam: PRESENT: moist, tongue midline Neck exam: ABSENT: carotid bruit, JVD, lymphadenopathy, thyromegaly Respiratory exam: PRESENT: clear to auscultation anastasiya. ABSENT: rales, rhonchi, wheezes Cardiovascular exam: PRESENT: RRR. ABSENT: diastolic murmur, rubs, systolic murmur Pulses: PRESENT: normal dorsalis pedis pul Vascular exam: PRESENT: normal capillary refill GI/Abdominal exam: PRESENT: normal bowel sounds, soft. ABSENT: distended, guarding, mass, organolmegaly, rebound, tenderness Rectal exam: PRESENT: deferred Extremities exam: PRESENT: full ROM. ABSENT: calf tenderness, clubbing, pedal edema Neurological exam: PRESENT: alert, awake, oriented to person, oriented to place, oriented to time, oriented to situation, CN II-XII grossly intact. ABSENT: motor sensory deficit Psychiatric exam: PRESENT: appropriate affect, normal mood. ABSENT: homicidal ideation, suicidal ideation Skin exam: PRESENT: dry, intact, warm. ABSENT: cyanosis, rash Results Laboratory Results: 02/03/19 03:20 02/03/19 03:20 02/02/19 02/04/19 06:36 11:37 Troponin I < 0.012 NT-Pro-B Natriuret Pep 25 Impressions: Chest X-Ray 02/03/19 00:00 IMPRESSION: WORSENING BILATERAL INFILTRATES AND PLEURAL EFFUSIONS. Chest CT 02/05/19 08:00 IMPRESSION: Airspace disease in the left upper lobe posteriorly, lingula, and left lower lobe, pneumonia versus atelectasis. These findings are increased compared to the study from 12/31/2018. Chronic interstitial and subpleural changes in the right base. Status: Image reviewed by me Assessment & Plan - Diagnosis (1) Acute chest syndrome Is this a current diagnosis for this admission?: Yes Plan: I believe the changes in the lung are more likely due to continued acute chest crisis as opposed to pneumonia, increase Dilaudid to every 3 hours. As an outpatient, I think I need to get him to [place] or [facility] for consideration of outpatient exchange transfusions. 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
[2019-02-06 09:19] LABS: HEMATOCRIT 25.2 % (37.9-51.0); HEMOGLOBIN 8.6 g/dL (13.5-17.0); MEAN CORPUSCULAR HEMOGLOBIN 30.9 pg (27.0-33.4); MEAN CORPUSCULAR VOLUME 91 fl (80-97); PLATELET COUNT 403 10^3/uL (150-450); RED BLOOD COUNT 2.76 10^6/uL (4.35-5.55); RED CELL DISTRIBUTION WIDTH 21.4 % (11.5-14.0); RETICULOCYTE COUNT (AUTO) 5.44 % (0.66-2.85); WHITE BLOOD COUNT 6.7 10^3/uL (4.0-10.5)
[2019-02-06 09:25] LABS: ANION GAP 10 (5-19); BLOOD UREA NITROGEN 6 mg/dL (7-20); CALCIUM 8.9 mg/dL (8.4-10.2); CARBON DIOXIDE 33 mmol/L (22-30); CHLORIDE 97 mmol/L (98-107); GLUCOSE 130 mg/dL (75-110)
[2019-02-06 09:39] LABS: ABSOLUTE LYMPHOCYTES# (MANUAL) 2.4 10^3/uL (0.5-4.7); ABSOLUTE MONOCYTES # (MANUAL) 0.7 10^3/uL (0.1-1.4); BAND NEUTROPHILS % (MANUAL) 1 % (3-5); BASOPHILS % (MANUAL) 0 % (0-2); EOSINOPHILS % (MANUAL) 5 % (0-6); LYMPHOCYTES % (MANUAL) 36 % (13-45); MONOCYTES % (MANUAL) 11 % (3-13); SEGMENTED NEUTROPHILS % (MAN) 47 % (42-78); TOTAL CELLS COUNTED 100
[2019-02-06 09:40] LABS: ANISOCYTOSIS 3+; PLATELET COMMENT ADEQUATE; POLYCHROMASIA SLIGHT; SICKLE RED CELLS 1+; TARGET CELLS 1+
[2019-02-06] MEDS: FOLIC ACID 1 MG TABLET PO SCH (10:19)
[2019-02-06] MEDS: HYDROXYUREA 500 MG CAPSULE PO SCH (10:19)
[2019-02-06] MEDS: BACLOFEN 10 MG TABLET PO SCH ×2 (10:19→22:06)
[2019-02-06] MEDS: DOCUSATE SODIUM 100 MG CAPSULE PO SCH ×2 (10:19→18:21)
--- NOTE | 2019-02-06 18:06 | PDOC PROGRESS REPORT ---
Subjective Progress Note for:: 02/06/19 Subjective:: 02/03/2019 38-year-old gentleman known due to his sickle cell disease admitted yesterday for rib pain. No chest x-ray has been done yet this will be ordered today. Patient currently has Dilaudid 3 mg IV every 2 hours and ibuprofen 600 mg every 6 hours as well as Tylenol as needed ordered for pain Reticulocyte count appears to be about his average of 9.36. It has been as high as 14 in the past. 02/04/2019 Patient's vital signs this morning temperature 98.7 pulse 100 this is been running in the 90s, blood pressure stable 139/76 Admission chest x-ray is abnormal I am going to order a CT angiogram of the chest since he is complaining of rib pain 02/05/2019 CT scan was performed without contrast of the chest. This showed some chronic changes but also increased findings in the left upper lobe lingula and lower lobe on the left, chronic changes in the right base. Because of this I started the patient on IV Zithromax. He is allergic to penicillins as well as quinolones. Pain meds seems to be doing okay he is having less pain today than yesterday. Will add baclofen to his daily regimen a scheduled drug, add his methadone back in to the scheduled drugs, and decrease his Dilaudid ER and dosing 02/06/2019 Patient appears to be hemodynamically stable blood pressure 120/83 pulse is 80 O2 sat 100% on 2 L of nasal cannula and he is afebrile 98 to Reason For Visit: SICKLE CELL Physical Exam Vital Signs: Temp Pulse Resp BP Pulse Ox 98.2 F 80 15 120/83 100 02/06/19 15:32 02/06/19 15:32 02/06/19 15:32 02/06/19 15:32 02/06/19 15:32 Intake & Output 02/05/19 02/06/19 02/07/19 06:59 06:59 06:59 Intake Total 3622 847 240 Output Total 3550 925 Balance 72 -78 240 Weight 89 kg 89 kg General appearance: PRESENT: mild distress Respiratory exam: PRESENT: clear to auscultation anastasiya. ABSENT: rales, rhonchi, wheezes Cardiovascular exam: PRESENT: RRR. ABSENT: diastolic murmur, rubs, systolic murmur Musculoskeletal exam: PRESENT: other - Patient is not moving his upper body much i.e. his arms because of rib pain. Neurological exam: PRESENT: alert, awake, oriented to person, oriented to place, oriented to time, oriented to situation, CN II-XII grossly intact. ABSENT: motor sensory deficit Psychiatric exam: PRESENT: flat affect Results Laboratory Results: 02/06/19 08:10 02/06/19 08:10 02/06/19 02/06/19 08:10 08:10 WBC 6.7 RBC 2.76 L Hgb 8.6 L Hct 25.2 L MCV 91 MCH 30.9 MCHC 34.0 RDW 21.4 H Plt Count 403 Seg Neutrophils % Not Reportable Retic Count (auto) 5.44 H Sodium 139.7 Potassium 4.0 Chloride 97 L Carbon Dioxide 33 H Anion Gap 10 BUN 6 L Creatinine 0.54 Est GFR ( Amer) > 60 Glucose 130 H Calcium 8.9 02/02/19 02/04/19 06:36 11:37 Troponin I < 0.012 NT-Pro-B Natriuret Pep 25 Impressions: Chest X-Ray 02/03/19 00:00 IMPRESSION: WORSENING BILATERAL INFILTRATES AND PLEURAL EFFUSIONS. Chest CT 02/05/19 08:00 IMPRESSION: Airspace disease in the left upper lobe posteriorly, lingula, and left lower lobe, pneumonia versus atelectasis. These findings are increased compared to the study from 12/31/2018. Chronic interstitial and subpleural changes in the right base. Assessment and Plan - Diagnosis (1) Chronic pain Is this a current diagnosis for this admission?: Yes (2) Chest pain with low risk for cardiac etiology Is this a current diagnosis for this admission?: Yes (3) Myalgia Is this a current diagnosis for this admission?: Yes - Plan Summary Summary: I have ordered a two-view chest x-ray for today. I have reviewed his medications which appear to be appropriate, will do serial labs Continue IV fluids This morning's pulse rate is 101 on admission it was 81 Morning's blood pressure is 127/81 on admission it was 129/86 O2 saturations 94% on room air, is 94% on admission all day yesterday it was at 100% 02/04/2019 chest x-ray yesterday was abnormal showing bibasilar traits, will proceed with CT angiogram as well as BNP today 02/05/2019 CT scan of the chest showed chronic changes plus new findings left upper and lower lobe, worse since previous scan. We will add IV Zithromax. Also add baclofen as well as patient's methadone back to schedule drugs, and decrease the frequency of IV Dilaudid 02/06/2019 Labs appear to be stable his white count is still normal 6.7 retic count has come down 5.44, electrolytes appear normal function looks normal Patient's pain management will be treated by hematology/oncology, who is well- known to the patient. As patient does not appear to be septic, be able to be discharged home when ready on p.o. antibiotics. Nurse was in the room during the discussion today. We will resume patient's IV fluids at 125/h - Time Time Spent with patient: 15-24 minutes
[2019-02-06] MEDS: AZITHROMYCIN 500 MG in DEXTROSE 5%-WATER 250 ML IV SCH (18:25)
[2019-02-06] MEDS: NORMAL SALINE 1000 ML 1,000 ML IV PRN (18:25)
[2019-02-07] MEDS: HYDROMORPHONE HCL INJ/PF 2 MG/ML AMPULE IV PRN ×9 (02:43→22:28)
[2019-02-07] MEDS: NORMAL SALINE 1000 ML 1,000 ML IV PRN ×3 (04:23→22:42)
[2019-02-07] MEDS: DIPHENHYDRAMINE HCL 50 MG/ML VIAL IV PRN ×4 (06:15→22:27)
[2019-02-07] MEDS: METHADONE HCL 10 MG TABLET PO SCH ×3 (06:16→22:28)
[2019-02-07] MEDS: FOLIC ACID 1 MG TABLET PO SCH (09:20)
[2019-02-07] MEDS: HYDROXYUREA 500 MG CAPSULE PO SCH (09:20)
[2019-02-07] MEDS: DOCUSATE SODIUM 100 MG CAPSULE PO SCH ×2 (09:20→17:46)
[2019-02-07] MEDS: BACLOFEN 10 MG TABLET PO SCH ×2 (09:20→22:45)
--- NOTE | 2019-02-07 11:53 | PDOC PROGRESS REPORT ---
Subjective Progress Note for:: 02/07/19 Subjective:: Pain still severe, continue with current regimen but I will have to decrease interval again to 2 hours, he does have severe pain crisis related to probable mild acute chest crisis Reason For Visit: SICKLE CELL Physical Exam Vital Signs: Temp Pulse Resp BP Pulse Ox 97.9 F 91 12 130/76 H 100 02/07/19 07:34 02/07/19 07:34 02/07/19 07:34 02/07/19 07:34 02/07/19 07:34 Intake & Output 02/06/19 02/07/19 02/08/19 06:59 06:59 06:59 Intake Total 847 1610 935 Output Total 925 Balance -78 1610 935 Weight 89 kg 88 kg General appearance: PRESENT: no acute distress, well-developed, well-nourished Head exam: PRESENT: atraumatic, normocephalic Eye exam: PRESENT: conjunctiva pink, EOMI, PERRLA. ABSENT: scleral icterus Ear exam: PRESENT: normal external ear exam Mouth exam: PRESENT: moist, tongue midline Neck exam: ABSENT: carotid bruit, JVD, lymphadenopathy, thyromegaly Respiratory exam: PRESENT: clear to auscultation anastasiya. ABSENT: rales, rhonchi, wheezes Cardiovascular exam: PRESENT: RRR. ABSENT: diastolic murmur, rubs, systolic murmur Pulses: PRESENT: normal dorsalis pedis pul Vascular exam: PRESENT: normal capillary refill GI/Abdominal exam: PRESENT: normal bowel sounds, soft. ABSENT: distended, guarding, mass, organolmegaly, rebound, tenderness Rectal exam: PRESENT: deferred Extremities exam: PRESENT: full ROM. ABSENT: calf tenderness, clubbing, pedal edema Neurological exam: PRESENT: alert, awake, oriented to person, oriented to place, oriented to time, oriented to situation, CN II-XII grossly intact. ABSENT: motor sensory deficit Psychiatric exam: PRESENT: appropriate affect, normal mood. ABSENT: homicidal ideation, suicidal ideation Skin exam: PRESENT: dry, intact, warm. ABSENT: cyanosis, rash Results Laboratory Results: 02/06/19 08:10 02/06/19 08:10 02/02/19 02/04/19 06:36 11:37 Troponin I < 0.012 NT-Pro-B Natriuret Pep 25 Impressions: Chest X-Ray 02/03/19 00:00 IMPRESSION: WORSENING BILATERAL INFILTRATES AND PLEURAL EFFUSIONS. Chest CT 02/05/19 08:00 IMPRESSION: Airspace disease in the left upper lobe posteriorly, lingula, and left lower lobe, pneumonia versus atelectasis. These findings are increased compared to the study from 12/31/2018. Chronic interstitial and subpleural c hanges in the right base. Assessment & Plan - Diagnosis (1) Acute chest syndrome Is this a current diagnosis for this admission?: Yes Plan: Slightly improved but still pretty severe, continue with current therapy (2) Sickle cell pain crisis Is this a current diagnosis for this admission?: Yes Plan: Continue with supportive measures, patient will still need to several more days in. 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
[2019-02-07] MEDS: AZITHROMYCIN 500 MG in DEXTROSE 5%-WATER 250 ML IV SCH (17:46)
[2019-02-08] MEDS: HYDROMORPHONE HCL INJ/PF 2 MG/ML AMPULE IV PRN ×11 (00:44→22:34)
[2019-02-08] MEDS: DIPHENHYDRAMINE HCL 50 MG/ML VIAL IV PRN ×5 (02:48→20:33)
[2019-02-08] MEDS: METHADONE HCL 10 MG TABLET PO SCH ×3 (05:01→22:21)
[2019-02-08] MEDS: NORMAL SALINE 1000 ML 1,000 ML IV PRN ×2 (07:01→16:01)
[2019-02-08] MEDS: HYDROXYUREA 500 MG CAPSULE PO SCH (09:17)
[2019-02-08] MEDS: DOCUSATE SODIUM 100 MG CAPSULE PO SCH ×2 (09:18→18:25)
[2019-02-08] MEDS: BACLOFEN 10 MG TABLET PO SCH ×2 (09:18→22:21)
[2019-02-08] MEDS: FOLIC ACID 1 MG TABLET PO SCH (09:18)
--- NOTE | 2019-02-08 11:35 | PDOC PROGRESS REPORT ---
Subjective Progress Note for:: 02/08/19 Subjective:: Continued severe pain and shortness of breath, not being able to get off oxygen, we discussed this is probably because of continued chest crisis, continue with current therapy Reason For Visit: SICKLE CELL Physical Exam Vital Signs: Temp Pulse Resp BP Pulse Ox 98.3 F 86 12 140/88 H 98 02/08/19 07:12 02/08/19 07:12 02/08/19 07:12 02/08/19 07:12 02/08/19 07:12 Intake & Output 02/07/19 02/08/19 02/09/19 06:59 06:59 06:59 Intake Total 1610 3785 Output Total 4250 Balance 1610 -465 Weight 88 kg 89.8 kg General appearance: PRESENT: no acute distress, well-developed, well-nourished Head exam: PRESENT: atraumatic, normocephalic Eye exam: PRESENT: conjunctiva pink, EOMI, PERRLA. ABSENT: scleral icterus Ear exam: PRESENT: normal external ear exam Mouth exam: PRESENT: moist, tongue midline Neck exam: ABSENT: carotid bruit, JVD, lymphadenopathy, thyromegaly Respiratory exam: PRESENT: clear to auscultation anastasiya. ABSENT: rales, rhonchi, wheezes Cardiovascular exam: PRESENT: RRR. ABSENT: diastolic murmur, rubs, systolic murmur Pulses: PRESENT: normal dorsalis pedis pul Vascular exam: PRESENT: normal capillary refill GI/Abdominal exam: PRESENT: normal bowel sounds, soft. ABSENT: distended, guarding, mass, organolmegaly, rebound, tenderness Rectal exam: PRESENT: deferred Extremities exam: PRESENT: full ROM. ABSENT: calf tenderness, clubbing, pedal edema Neurological exam: PRESENT: alert, awake, oriented to person, oriented to place, oriented to time, oriented to situation, CN II-XII grossly intact. ABSENT: motor sensory deficit Psychiatric exam: PRESENT: appropriate affect, normal mood. ABSENT: homicidal ideation, suicidal ideation Skin exam: PRESENT: dry, intact, warm. ABSENT: cyanosis, rash Results Laboratory Results: 02/06/19 08:10 02/06/19 08:10 02/02/19 02/04/19 06:36 11:37 Troponin I < 0.012 NT-Pro-B Natriuret Pep 25 Impressions: Chest X-Ray 02/03/19 00:00 IMPRESSION: WORSENING BILATERAL INFILTRATES AND PLEURAL EFFUSIONS. Chest CT 02/05/19 08:00 IMPRESSION: Airspace disease in the left upper lobe posteriorly, lingula, and left lower lobe, pneumonia versus atelectasis. These findings are increased compared to the study from 12/31/2018. Chronic interstitial and subpleural changes in the right base. 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
[2019-02-08] MEDS: AZITHROMYCIN 500 MG in DEXTROSE 5%-WATER 250 ML IV SCH (18:23)
[2019-02-09] MEDS: DIPHENHYDRAMINE HCL 50 MG/ML VIAL IV PRN ×6 (00:38→22:09)
[2019-02-09] MEDS: HYDROMORPHONE HCL INJ/PF 2 MG/ML AMPULE IV PRN ×11 (00:38→22:08)
[2019-02-09] MEDS: NORMAL SALINE 1000 ML 1,000 ML IV PRN ×2 (02:39→10:55)
[2019-02-09] MEDS: METHADONE HCL 10 MG TABLET PO SCH ×3 (05:00→22:09)
--- NOTE | 2019-02-09 08:42 | PDOC PROGRESS REPORT ---
Subjective Progress Note for:: 02/09/19 Subjective:: Patient is incrementally better, yesterday he walked but had to use oxygen, if he does not use the oxygen he feels like he is going to pass out if he takes just a few steps. Today I asked nursing to do a home O2 evaluation Reason For Visit: SICKLE CELL Physical Exam Vital Signs: Temp Pulse Resp BP Pulse Ox 98.4 F 81 16 120/77 100 02/09/19 07:51 02/09/19 07:51 02/09/19 07:51 02/09/19 07:51 02/09/19 07:51 Intake & Output 02/08/19 02/09/19 02/10/19 06:59 06:59 06:59 Intake Total 3785 3790 Output Total 4250 3200 Balance -465 590 Weight 89.8 kg 89.8 kg General appearance: PRESENT: no acute distress, well-developed, well-nourished Head exam: PRESENT: atraumatic, normocephalic Eye exam: PRESENT: conjunctiva pink, EOMI, PERRLA. ABSENT: scleral icterus Ear exam: PRESENT: normal external ear exam Mouth exam: PRESENT: moist, tongue midline Neck exam: ABSENT: carotid bruit, JVD, lymphadenopathy, thyromegaly Respiratory exam: PRESENT: clear to auscultation anastasiya. ABSENT: rales, rhonchi, wheezes Cardiovascular exam: PRESENT: RRR. ABSENT: diastolic murmur, rubs, systolic murmur Pulses: PRESENT: normal dorsalis pedis pul Vascular exam: PRESENT: normal capillary refill GI/Abdominal exam: PRESENT: normal bowel sounds, soft. ABSENT: distended, gua rding, mass, organolmegaly, rebound, tenderness Rectal exam: PRESENT: deferred Extremities exam: PRESENT: full ROM. ABSENT: calf tenderness, clubbing, pedal edema Neurological exam: PRESENT: alert, awake, oriented to person, oriented to place, oriented to time, oriented to situation, CN II-XII grossly intact. ABSENT: pierre r sensory deficit Psychiatric exam: PRESENT: appropriate affect, normal mood. ABSENT: homicidal ideation, suicidal ideation Skin exam: PRESENT: dry, intact, warm. ABSENT: cyanosis, rash Results Laboratory Results: 02/06/19 08:10 02/06/19 08:10 02/02/19 02/04/19 06:36 11:37 Troponin I < 0.012 NT-Pro-B Natriuret Pep 25 Impressions: Chest X-Ray 02/03/19 00:00 IMPRESSION: WORSENING BILATERAL INFILTRATES AND PLEURAL EFFUSIONS. Chest CT 02/05/19 08:00 IMPRESSION: Airspace disease in the left upper lobe posteriorly, lingula, and left lower lobe, pneumonia versus atelectasis. These findings are increased compared to the study from 12/31/2018. Chronic interstitial and subpleural changes in the right base. Assessment & Plan - Diagnosis (1) Acute chest syndrome Is this a current diagnosis for this admission?: Yes Plan: Slowly getting better, but patient may be O2 dependent now, we will get some testing and see. 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 Is this a current diagnosis for this admission?: Yes Plan: Hemoglobin previously stable, will check every 3 to 4 days - Time Time Spent with patient: 35 or more minutes - Inpatient Certification Based on my medical assessment, after consideration of the patient's comorbidities, presenting symptoms, or acuity I expect that the services needed warrant INPATIENT care.: Yes I certify that my determination is in accordance with my understanding of Medicare's requirements for reasonable and necessary INPATIENT services [42 CFR 412.3e].: Yes Medical Necessity: Need For IV Fluids, Need for Pain Control, Risk of Complication if Not Cared For in Hospital
[2019-02-09] MEDS: BACLOFEN 10 MG TABLET PO SCH ×2 (09:26→22:09)
[2019-02-09] MEDS: FOLIC ACID 1 MG TABLET PO SCH (09:26)
[2019-02-09] MEDS: HYDROXYUREA 500 MG CAPSULE PO SCH (09:26)
[2019-02-09] MEDS: DOCUSATE SODIUM 100 MG CAPSULE PO SCH ×2 (09:26→17:52)
[2019-02-09] MEDS: AZITHROMYCIN 500 MG in DEXTROSE 5%-WATER 250 ML IV SCH (17:50)
[2019-02-10] MEDS: HYDROMORPHONE HCL INJ/PF 2 MG/ML AMPULE IV PRN ×11 (00:09→22:46)
[2019-02-10] MEDS: DIPHENHYDRAMINE HCL 50 MG/ML VIAL IV PRN ×4 (02:34→17:33)
[2019-02-10] MEDS: METHADONE HCL 10 MG TABLET PO SCH ×3 (05:55→21:30)
[2019-02-10] MEDS: NORMAL SALINE 1000 ML 1,000 ML IV PRN ×2 (07:20→13:54)
[2019-02-10] MEDS: DOCUSATE SODIUM 100 MG CAPSULE PO SCH ×2 (09:42→17:34)
[2019-02-10] MEDS: FOLIC ACID 1 MG TABLET PO SCH (09:42)
[2019-02-10] MEDS: HYDROXYUREA 500 MG CAPSULE PO SCH (09:42)
[2019-02-10] MEDS: BACLOFEN 10 MG TABLET PO SCH ×2 (09:42→21:31)
--- NOTE | 2019-02-10 13:56 | PDOC PROGRESS REPORT ---
Subjective Progress Note for:: 02/10/19 Subjective:: Patient denies any new problems. Is pleased with current medical management. ROS: No nausea. No constipation. Reason For Visit: SICKLE CELL Physical Exam Vital Signs: Temp Pulse Resp BP Pulse Ox 97.7 F 83 16 123/79 100 02/10/19 11:27 02/10/19 11:27 02/10/19 11:27 02/10/19 11:27 02/10/19 11:27 Intake & Output 02/09/19 02/10/19 02/11/19 06:59 06:59 06:59 Intake Total 3790 2840 Output Total 3200 1900 Balance 590 940 Weight 89.8 kg 90.5 kg General appearance: PRESENT: well-developed, well-nourished Head exam: PRESENT: normocephalic Respiratory exam: PRESENT: unlabored Neurological exam: PRESENT: alert, awake Psychiatric exam: PRESENT: appropriate affect Skin exam: PRESENT: normal color Results Laboratory Results: 02/06/19 08:10 02/06/19 08:10 02/02/19 02/04/19 06:36 11:37 Troponin I < 0.012 NT-Pro-B Natriuret Pep 25 Impressions: Chest X-Ray 02/03/19 00:00 IMPRESSION: WORSENING BILATERAL INFILTRATES AND PLEURAL EFFUSIONS. Chest CT 02/05/19 08:00 IMPRESSION: Airspace disease in the left upper lobe posteriorly, lingula, and left lower lobe, pneumonia versus atelectasis. These findings are increased compared to the study from 12/31/2018. Chronic interstitial and subpleural changes in the right base. Assessment & Plan - Diagnosis (1) Sickle-cell disease with pain Is this a current diagnosis for this admission?: Yes Plan: Continue current pain management with fluids and O2. - Time Time Spent with patient: Less than 15 minutes
--- NOTE | 2019-02-10 19:47 | PDOC PROGRESS REPORT ---
Subjective Progress Note for:: 02/10/19 Subjective:: The patient is a 38-year-old male, well-known to our service, with past medical history of sickle cell disease with recent acute chest syndrome, pneumonia, hypertension, and opiate dependent chronic pain who was admitted 02/02/2019 for sickle cell crisis. Patient was seen on morning rounds. He was found resting in bed comfortably on supplemental oxygen by nasal cannula at 3 L/min; he is not home O2 dependent. He was lying supine and noted to be speaking on his phone full sentences without increased work of breathing upon my entering the room. The patient does continue to decline oxygen qualification testing; notes that he becomes short of breath too quickly upon ambulating without oxygen which exacerbates his pain and further worsens his dyspnea. Otherwise, he continues to have right-sided large joint and chest wall pain that worsens with movement. He denies fever, chills, palpitations, orthopnea, cough, abdominal pain, nausea vomiting and diarrhea. He has no other questions or concerns at this time. No concerns per nursing. Reason For Visit: SICKLE CELL Physical Exam Vital Signs: Temp Pulse Resp BP Pulse Ox 98.3 F 83 17 122/75 100 02/10/19 17:00 02/10/19 17:00 02/10/19 17:00 02/10/19 17:00 02/10/19 17:00 Intake & Output 02/09/19 02/10/19 02/11/19 06:59 06:59 06:59 Intake Total 3790 2840 1529 Output Total 3200 1900 2000 Balance 590 940 -471 Weight 89.8 kg 90.5 kg 90.5 kg General appearance: PRESENT: no acute distress, well-developed, well-nourished Head exam: PRESENT: atraumatic, normocephalic Eye exam: PRESENT: conjunctiva pink, EOMI, PERRLA. ABSENT: scleral icterus Mouth exam: PRESENT: moist, tongue midline Respiratory exam: PRESENT: clear to auscultation anastasiya, symmetrical, unlabored, other - Supplemental oxygen by nasal cannula. ABSENT: rales, rhonchi, wheezes Cardiovascular exam: PRESENT: RRR. ABSENT: diastolic murmur, rubs, systolic [place] Pulses: PRESENT: normal dorsalis pedis pul Vascular exam: PRESENT: normal capillary refill Rectal exam: PRESENT: deferred Extremities exam: PRESENT: full ROM. ABSENT: calf tenderness, clubbing, pedal edema Neurological exam: PRESENT: alert, awake, oriented to person, oriented to place, oriented to time, oriented to situation, CN II-XII grossly intact. ABSENT: motor sensory deficit Psychiatric exam: PRESENT: appropriate affect, normal mood. ABSENT: homicidal ideation, suicidal ideation Skin exam: PRESENT: dry, intact, warm. ABSENT: cyanosis, rash Results Laboratory Results: 02/06/19 08:10 02/06/19 08:10 02/02/19 02/04/19 06:36 11:37 Troponin I < 0.012 NT-Pro-B Natriuret Pep 25 Impressions: Chest X-Ray 02/03/19 00:00 IMPRESSION: WORSENING BILATERAL INFILTRATES AND PLEURAL EFFUSIONS. Chest CT 02/05/19 08:00 IMPRESSION: Airspace disease in the left upper lobe posteriorly, lingula, and left lower lobe, pneumonia versus atelectasis. These findings are increased compared to the study from 12/31/2018. Chronic interstitial and subpleural changes in the right base. Assessment and Plan - Diagnosis (1) Sickle cell crisis Is this a current diagnosis for this admission?: Yes Plan: The patient is admitted to the medical floor. Hematology is consulted; pain management per their expertise. Continue hydroxyurea 15 mg 1500 mg daily. Continue folic acid supplementation Continue supplemental oxygen. Continue IV fluids. Patient's current pain medication regiment includes methadone 5 mg every 8 hours, baclofen 10 mg p.o. every 12 hours, ibuprofen 600 mg every 6 as needed, and Dilaudid 3 mg IV every 2 as needed. 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 Hemoglobin 8.610 1819. No signs of active bleeding. Reticulocyte count trending down. Has not required this admission. Hematology is consulted. - Plan Summary Summary: I have ordered a two-view chest x-ray for today. I have reviewed his medications which appear to be appropriate, will do serial labs Continue IV fluids This morning's pulse rate is 101 on admission it was 81 Morning's blood pressure is 127/81 on admission it was 129/86 O2 saturations 94% on room air, is 94% on admission all day yesterday it was at 100% 02/04/2019 chest x-ray yesterday was abnormal showing bibasilar traits, will proceed with CT angiogram as well as BNP today 02/05/2019 CT scan of the chest showed chronic changes plus new findings left upper and lower lobe, worse since previous scan. We will add IV Zithromax. Also add baclofen as well as patient's methadone back to schedule drugs, and decrease the frequency of IV Dilaudid 02/06/2019 Labs appear to be stable his white count is still normal 6.7 retic count has c ome down 5.44, electrolytes appear normal function looks normal Patient's pain management will be treated by hematology/oncology, who is well- known to the patient. As patient does not appear to be septic, be able to be discharged home when ready on p.o. antibiotics. Nurse was in the room during th e discussion today. We will resume patient's IV fluids at 125/h - Time Time Spent with patient: 15-24 minutes Medications reviewed and adjusted accordingly: Yes Anticipated discharge: Home Within: within 72 hours
[2019-02-11] MEDS: HYDROMORPHONE HCL INJ/PF 2 MG/ML AMPULE IV PRN ×10 (01:14→23:27)
[2019-02-11] MEDS: DIPHENHYDRAMINE HCL 50 MG/ML VIAL IV PRN ×5 (01:14→20:44)
[2019-02-11] MEDS: METHADONE HCL 10 MG TABLET PO SCH ×3 (05:39→22:38)
[2019-02-11 08:15] LABS: HEMATOCRIT 23.7 % (37.9-51.0); HEMOGLOBIN 8.1 g/dL (13.5-17.0); MEAN CORPUSCULAR HEMOGLOBIN 30.2 pg (27.0-33.4); MEAN CORPUSCULAR HGB CONC 34.4 g/dL (32.0-36.0); MEAN CORPUSCULAR VOLUME 88 fl (80-97); PLATELET COUNT 580 10^3/uL (150-450); RED CELL DISTRIBUTION WIDTH 22.3 % (11.5-14.0); WHITE BLOOD COUNT 6.5 10^3/uL (4.0-10.5)
[2019-02-11 08:23] LABS: BLOOD UREA NITROGEN 4 mg/dL (7-20); CALCIUM 8.9 mg/dL (8.4-10.2); GLUCOSE 110 mg/dL (75-110); POTASSIUM 4.4 mmol/L (3.6-5.0)
[2019-02-11 08:24] LABS: ANION GAP 8 (5-19); CARBON DIOXIDE 30 mmol/L (22-30); CHLORIDE 105 mmol/L (98-107)
[2019-02-11 08:40] LABS: ABSOLUTE LYMPHOCYTES# (MANUAL) 2.1 10^3/uL (0.5-4.7); ABSOLUTE MONOCYTES # (MANUAL) 0.4 10^3/uL (0.1-1.4); BASOPHILS % (MANUAL) 2 % (0-2); EOSINOPHILS % (MANUAL) 4 % (0-6); LYMPHOCYTES % (MANUAL) 25 % (13-45); MONOCYTES % (MANUAL) 6 % (3-13); SEGMENTED NEUTROPHILS % (MAN) 56 % (42-78); TOTAL CELLS COUNTED 100
[2019-02-11 08:43] LABS: ANISOCYTOSIS 3+; OVALOCYTES 1+; POIKILOCYTOSIS 2+; POLYCHROMASIA 1+; SCHISTOCYTES 1+; SICKLE RED CELLS SLIGHT; TARGET CELLS SLIGHT; TEAR DROP CELLS SLIGHT
[2019-02-11 08:44] LABS: PLATELET COMMENT INCREASED; PLATELET GIANT PRESENT
--- NOTE | 2019-02-11 08:54 | PDOC PROGRESS REPORT ---
Subjective Progress Note for:: 02/11/19 Subjective:: Discussed importance of home o2 eval w/ pt, he agrees to try to do it today, pain much better, seems much better Reason For Visit: SICKLE CELL Physical Exam Vital Signs: Temp Pulse Resp BP Pulse Ox 98.1 F 80 16 125/68 100 02/11/19 07:59 02/11/19 07:59 02/11/19 07:59 02/11/19 07:59 02/11/19 07:59 Intake & Output 02/10/19 02/11/19 02/12/19 06:59 06:59 06:59 Intake Total 2840 1529 Output Total 1900 2000 Balance 940 -471 Weight 90.5 kg 90.5 kg General appearance: PRESENT: no acute distress, well-developed, well-nourished Head exam: PRESENT: atraumatic, normocephalic Eye exam: PRESENT: conjunctiva pink, EOMI, PERRLA. ABSENT: scleral icterus Ear exam: PRESENT: normal external ear exam Mouth exam: PRESENT: moist, tongue midline Neck exam: ABSENT: carotid bruit, JVD, lymphadenopathy, thyromegaly Respiratory exam: PRESENT: clear to auscultation anastasiya. ABSENT: rales, rhonchi, wheezes Cardiovascular exam: PRESENT: RRR. ABSENT: diastolic murmur, rubs, systolic murmur Pulses: PRESENT: normal dorsalis pedis pul Vascular exam: PRESENT: normal capillary refill GI/Abdominal exam: PRESENT: normal bowel sounds, soft. ABSENT: distended, guarding, mass, organolmegaly, rebound, tenderness Rectal exam: PRESENT: deferred Extremities exam: PRESENT: full ROM. ABSENT: calf tenderness, clubbing, pedal edema Neurological exam: PRESENT: alert, awake, oriented to person, oriented to place, oriented to time, oriented to situation, CN II-XII grossly intact. ABSENT: motor sensory deficit Psychiatric exam: PRESENT: appropriate affect, normal mood. ABSENT: homicidal ideation, suicidal ideation Skin exam: PRESENT: dry, intact, warm. ABSENT: cyanosis, rash Results Laboratory Results: 02/11/19 07:30 02/11/19 07:30 02/11/19 02/11/19 07:30 07:30 WBC 6.5 RBC 2.70 L Hgb 8.1 L Hct 23.7 L MCV 88 MCH 30.2 MCHC 34.4 RDW 22.3 H Plt Count 580 H Seg Neutrophils % Not Reportable Sodium 143.4 Potassium 4.4 Chloride 105 Carbon Dioxide 30 Anion Gap 8 BUN 4 L Creatinine 0.56 Est GFR ( Amer) > 60 Glucose 110 Calcium 8.9 02/02/19 02/04/19 06:36 11:37 Troponin I < 0.012 NT-Pro-B Natriuret Pep 25 Impressions: Chest X-Ray 02/03/19 00:00 IMPRESSION: WORSENING BILATERAL INFILTRATES AND PLEURAL EFFUSIONS. Chest CT 02/05/19 08:00 IMPRESSION: Airspace disease in the left upper lobe posteriorly, lingula, and left lower lobe, pneumonia versus atelectasis. These findings are increased compared to the study from 12/31/2018. Chronic interstitial and subpleural changes in the right base. 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
[2019-02-11] MEDS: BACLOFEN 10 MG TABLET PO SCH ×2 (10:12→22:45)
[2019-02-11] MEDS: DOCUSATE SODIUM 100 MG CAPSULE PO SCH ×2 (10:12→17:27)
[2019-02-11] MEDS: FOLIC ACID 1 MG TABLET PO SCH (10:12)
[2019-02-11] MEDS: HYDROXYUREA 500 MG CAPSULE PO SCH (10:13)
[2019-02-11] MEDS: NORMAL SALINE 1000 ML 1,000 ML IV PRN ×2 (15:06→23:31)
--- NOTE | 2019-02-11 17:40 | PDOC PROGRESS REPORT ---
Subjective Progress Note for:: 02/11/19 Subjective:: The patient is a 38-year-old male, well-known to our service, with past medical history of sickle cell disease with recent acute chest syndrome, pneumonia, hypertension, and opiate dependent chronic pain who was admitted 02/02/2019 for sickle cell crisis. Patient was seen on morning rounds. He was found resting in bed comfortably on supplemental oxygen by nasal cannula at 3 L/min; he is not home O2 dependent. He tells me he will do the oxygen qualification test tomorrow; reminded patient that we are requesting he ambulate today so that if oxygen is required there will be plenty of time to arrange this prior to his discharge. He reports continued left-sided chest wall pain (correction from yesterday; he did not have right side pain). He states that the pain is not especially improved as compared to yesterday, though is significantly better than the time of his admission earlier this week. He denies fever, chills, palpitations, orthopnea, cough, abdominal pain, nausea vomiting and diarrhea. He has no other questions or concerns at this time. No concerns per nursing. Reason For Visit: SICKLE CELL Physical Exam Vital Signs: Temp Pulse Resp BP Pulse Ox 98.1 F 77 16 132/86 H 100 02/11/19 16:05 02/11/19 16:05 02/11/19 16:05 02/11/19 16:05 02/11/19 16:05 Intake & Output 02/10/19 02/11/19 02/12/19 06:59 06:59 06:59 Intake Total 2840 2529 354 Output Total 1900 2000 1500 Balance 940 529 -1146 Weight 90.5 kg 90.5 kg General appearance: PRESENT: no acute distress, well-developed, well-nourished Head exam: PRESENT: atraumatic, normocephalic Eye exam: PRESENT: conjunctiva pink, EOMI, PERRLA. ABSENT: scleral icterus Mouth exam: PRESENT: moist, tongue midline Neck exam: ABSENT: carotid bruit, JVD, lymphadenopathy, thyromegaly Respiratory exam: PRESENT: clear to auscultation anastasiya, symmetrical, unlabored, other - Supplemental oxygen via NC. ABSENT: rales, rhonchi, wheezes Cardiovascular exam: PRESENT: RRR, +S1, +S2. ABSENT: diastolic murmur, rubs, systolic murmur Pulses: PRESENT: normal dorsalis pedis pul Vascular exam: PRESENT: normal capillary refill GI/Abdominal exam: PRESENT: normal bowel sounds, soft. ABSENT: distended, guarding, mass, organolmegaly, rebound, tenderness Rectal exam: PRESENT: deferred Extremities exam: PRESENT: full ROM. ABSENT: calf tenderness, clubbing, pedal edema Neurological exam: PRESENT: alert, awake, oriented to person, oriented to place, oriented to time, oriented to situation, CN II-XII grossly intact. ABSENT: motor sensory deficit Psychiatric exam: PRESENT: appropriate affect, normal mood. ABSENT: homicidal ideation, suicidal ideation Skin exam: PRESENT: dry, intact, warm. ABSENT: cyanosis, rash Results Laboratory Results: 02/11/19 07:30 02/11/19 07:30 02/11/19 02/11/19 07:30 07:30 WBC 6.5 RBC 2.70 L Hgb 8.1 L Hct 23.7 L MCV 88 MCH 30.2 MCHC 34.4 RDW 22.3 H Plt Count 580 H Seg Neutrophils % Not Reportable Sodium 143.4 Potassium 4.4 Chloride 105 Carbon Dioxide 30 Anion Gap 8 BUN 4 L Creatinine 0.56 Est GFR ( Amer) > 60 Glucose 110 Calcium 8.9 02/02/19 02/04/19 06:36 11:37 Troponin I < 0.012 NT-Pro-B Natriuret Pep 25 Impressions: Chest X-Ray 02/03/19 00:00 IMPRESSION: WORSENING BILATERAL INFILTRATES AND PLEURAL EFFUSIONS. Chest CT 02/05/19 08:00 IMPRESSION: Airspace disease in the left upper lobe posteriorly, lingula, and left lower lobe, pneumonia versus atelectasis. These findings are increased compared to the study from 12/31/2018. Chronic interstitial and subpleural changes in the right base. Assessment and Plan - Diagnosis (1) Sickle cell crisis Is this a current diagnosis for this admission?: Yes Plan: The patient is admitted to the medical floor. Reticulocyte count trending down. LDH 294 Hematology is consulted; pain management per their expertise. Continue hydroxyurea 1500 mg daily. Continue folic acid supplementation Continue supplemental oxygen. Continue IV fluids. 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 Hemoglobin 8.1 No signs of active bleeding. Reticulocyte count trending down. Hematology is consulted. - Plan Summary Summary: I have ordered a two-view chest x-ray for today. I have reviewed his medications which appear to be appropriate, will do serial labs Continue IV fluids This morning's pulse rate is 101 on admission it was 81 Morning's blood pressure is 127/81 on admission it was 129/86 O2 saturations 94% on room air, is 94% on admission all day yesterday it was at 100% 02/04/2019 chest x-ray yesterday was abnormal showing bibasilar traits, will proceed with CT angiogram as well as BNP today 02/05/2019 CT scan of the chest showed chronic changes plus new findings left upper and lower lobe, worse since previous scan. We will add IV Zithromax. Also add baclofen as well as patient's methadone back to schedule drugs, and decrease the frequency of IV Dilaudid 02/06/2019 Labs appear to be stable his white count is still normal 6.7 retic count has c ome down 5.44, electrolytes appear normal function looks normal Patient's pain management will be treated by hematology/oncology, who is well- known to the patient. As patient does not appear to be septic, be able to be discharged home when ready on p.o. antibiotics. Nurse was in the room during e discussion today. We will resume patient's IV fluids at 125/h - Time Time Spent with patient: 15-24 minutes Medications reviewed and adjusted accordingly: Yes Anticipated discharge: Home Within: within 24 hours
[2019-02-12] MEDS: HYDROMORPHONE HCL INJ/PF 2 MG/ML AMPULE IV PRN ×9 (01:27→23:29)
[2019-02-12] MEDS: DIPHENHYDRAMINE HCL 50 MG/ML VIAL IV PRN ×3 (04:09→16:30)
[2019-02-12] MEDS: METHADONE HCL 10 MG TABLET PO SCH ×2 (06:03→14:29)
[2019-02-12] MEDS: NORMAL SALINE 1000 ML 1,000 ML IV PRN ×2 (07:45→16:54)
--- NOTE | 2019-02-12 08:32 | PDOC PROGRESS REPORT ---
Subjective Progress Note for:: 02/12/19 Subjective:: Patient will need home O2, will discuss with hospitalist team, discussed with patient and I believe he is ready for tomorrow, once home O2 is in place Reason For Visit: SICKLE CELL Physical Exam Vital Signs: Temp Pulse Resp BP Pulse Ox 98.6 F 81 14 124/65 99 02/12/19 02:30 02/12/19 02:30 02/12/19 02:30 02/12/19 02:30 02/12/19 02:30 Intake & Output 02/11/19 02/12/19 02/13/19 06:59 06:59 06:59 Intake Total 2529 1708 1000 Output Total 1999 3950 Balance 529 -2242 1000 Weight 90.5 kg 89.6 kg General appearance: PRESENT: no acute distress, well-developed, well-nourished Head exam: PRESENT: atraumatic, normocephalic Eye exam: PRESENT: conjunctiva pink, EOMI, PERRLA. ABSENT: scleral icterus Ear exam: PRESENT: normal external ear exam Mouth exam: PRESENT: moist, tongue midline Neck exam: ABSENT: carotid bruit, JVD, lymphadenopathy, thyromegaly Respiratory exam: PRESENT: clear to auscultation anastasiya. ABSENT: rales, rhonchi, wheezes Cardiovascular exam: PRESENT: RRR. ABSENT: diastolic murmur, rubs, systolic murmur Pulses: PRESENT: normal dorsalis pedis pul Vascular exam: PRESENT: normal capillary refill GI/Abdominal exam: PRESENT: normal bowel sounds, soft. ABSENT: distended, guarding, mass, organolmegaly, rebound, tenderness Rectal exam: PRESENT: deferred Extremities exam: PRESENT: full ROM. ABSENT: calf tenderness, clubbing, pedal edema Neurological exam: PRESENT: alert, awake, oriented to person, oriented to place, oriented to time, oriented to situation, CN II-XII grossly intact. ABSENT: motor sensory deficit Psychiatric exam: PRESENT: appropriate affect, normal mood. ABSENT: homicidal ideation, suicidal ideation Skin exam: PRESENT: dry, intact, warm. ABSENT: cyanosis, rash Results Laboratory Results: 02/11/19 07:30 02/11/19 07:30 02/11/19 07:30 WBC 6.5 RBC 2.70 L Hgb 8.1 L Hct 23.7 L MCV 88 MCH 30.2 MCHC 34.4 RDW 22.3 H Plt Count 580 H 02/02/19 02/04/19 06:36 11:37 Troponin I < 0.012 NT-Pro-B Natriuret Pep 25 Impressions: Chest X-Ray 02/03/19 00:00 IMPRESSION: WORSENING BILATERAL INFILTRATES AND PLEURAL EFFUSIONS. Chest CT 02/05/19 08:00 IMPRESSION: Airspace disease in the left upper lobe posteriorly, lingula, and left lower lobe, pneumonia versus atelectasis. These findings are increased compared to the study from 12/31/2018. Chronic interstitial and subpleural changes in the right base. 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 Qualified Code(s): D58.2 - Other hemoglobinopathies Is this a current diagnosis for this admission?: Yes Plan: Hemoglobin dropped 8.1 but not in transfusion range yet - Time Time Spent with patient: 25-34 minutes Anticipated discharge: Home, Other - With O2 Within: within 24 hours - Inpatient Certification Based on my medical assessment, after consideration of the patient's comorbidities, presenting symptoms, or acuity I expect that the services needed warrant INPATIENT care.: Yes I certify that my determination is in accordance with my understanding of Medicare's requirements for reasonable and necessary INPATIENT services [42 CFR 412.3e].: Yes Medical Necessity: Need for Pain Control
[2019-02-12] MEDS: FOLIC ACID 1 MG TABLET PO SCH (09:02)
[2019-02-12] MEDS: BACLOFEN 10 MG TABLET PO SCH ×2 (09:03→21:07)
[2019-02-12] MEDS: DOCUSATE SODIUM 100 MG CAPSULE PO SCH ×2 (09:03→17:20)
[2019-02-12] MEDS: HYDROXYUREA 500 MG CAPSULE PO SCH (09:03)
--- NOTE | 2019-02-12 18:50 | PDOC PROGRESS REPORT ---
Subjective Progress Note for:: 02/12/19 Subjective:: The patient is a 38-year-old male, well-known to our service, with past medical history of sickle cell disease with recent acute chest syndrome, pneumonia, hypertension, and opiate dependent chronic pain who was admitted 02/02/2019 for sickle cell crisis. Patient was seen on afternoon rounds. He was found resting in bed comfortably on room air. He reports continued left-sided chest wall pain; though much improved. He denies fever, chills, palpitations, orthopnea, cough, abdominal pain, nausea vomiting and diarrhea. He has no other questions or concerns at this time. No concerns per nursing. Reason For Visit: SICKLE CELL Physical Exam Vital Signs: Temp Pulse Resp BP Pulse Ox 97.9 F 74 12 124/71 100 02/12/19 10:58 02/12/19 10:58 02/12/19 10:58 02/12/19 10:58 02/12/19 10:58 Intake & Output 02/11/19 02/12/19 02/13/19 06:59 06:59 06:59 Intake Total 2529 1708 2240 Output Total 1999 3950 925 Balance 529 -2242 1315 Weight 90.5 kg 89.6 kg General appearance: PRESENT: no acute distress, well-developed, well-nourished Head exam: PRESENT: atraumatic, normocephalic Eye exam: PRESENT: conjunctiva pink, EOMI, PERRLA. ABSENT: scleral icterus Mouth exam: PRESENT: moist, tongue midline Respiratory exam: PRESENT: clear to auscultation anastasiya, symmetrical, unlabored. ABSENT: rales, rhonchi, wheezes Cardiovascular exam: PRESENT: RRR. ABSENT: diastolic murmur, rubs, systolic murmur Vascular exam: PRESENT: normal capillary refill GI/Abdominal exam: PRESENT: normal bowel sounds, soft. ABSENT: distended, guarding, mass, organolmegaly, rebound, tenderness Rectal exam: PRESENT: deferred Extremities exam: PRESENT: full ROM. ABSENT: calf tenderness, clubbing, pedal edema Musculoskeletal exam: PRESENT: ambulatory Neurological exam: PRESENT: alert, awake, oriented to person, oriented to place, oriented to time, oriented to situation, CN II-XII grossly intact. ABSENT: motor sensory deficit Psychiatric exam: PRESENT: appropriate affect, normal mood. ABSENT: homicidal ideation, suicidal ideation Skin exam: PRESENT: dry, intact, warm. ABSENT: cyanosis, rash Results Laboratory Results: 02/11/19 07:30 02/11/19 07:30 02/02/19 02/04/19 06:36 11:37 Troponin I < 0.012 NT-Pro-B Natriuret Pep 25 Impressions: Chest X-Ray 02/03/19 00:00 IMPRESSION: WORSENING BILATERAL INFILTRATES AND PLEURAL EFFUSIONS. Chest CT 02/05/19 08:00 IMPRESSION: Airspace disease in the left upper lobe posteriorly, lingula, and left lower lobe, pneumonia versus atelectasis. These findings are increased compared to the study from 12/31/2018. Chronic interstitial and subpleural diaz ges in the right base. Assessment and Plan - Diagnosis (1) Sickle cell crisis Is this a current diagnosis for this admission?: Yes Plan: The patient is admitted to the medical floor. Reticulocyte count trending down. LDH 294 Hematology is consulted; pain management per their expertise. Continue hydroxyurea 1500 mg daily. Continue folic acid supplementation Continue supplemental oxygen. Continue IV fluids. Per Dr. [place]ellin, patient should be ready for discharge home in the morning. 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 Hemoglobin 8.1 No signs of active bleeding. Reticulocyte count trending down. Hematology is consulted. - Plan Summary Summary: I have ordered a two-view chest x-ray for today. I have reviewed his medications which appear to be appropriate, will do serial labs Continue IV fluids This morning's pulse rate is 101 on admission it was 81 Morning's blood pressure is 127/81 on admission it was 129/86 O2 saturations 94% on room air, is 94% on admission all day yesterday it was at 100% 02/04/2019 chest x-ray yesterday was abnormal showing bibasilar traits, will proceed with CT angiogram as well as BNP today 02/05/2019 CT scan of the chest showed chronic changes plus new findings left upper and lower lobe, worse since previous scan. We will add IV Zithromax. Also add baclofen as well as patient's methadone back to schedule drugs, and decrease the frequency of IV Dilaudid 02/06/2019 Labs appear to be stable his white count is still normal 6.7 retic count has come down 5.44, electrolytes appear normal function looks normal Patient's pain management will be treated by hematology/oncology, who is well- known to the patient. As patient does not appear to be septic, be able to be discharged home when ready on p.o. antibiotics. Nurse was in the room during the discussion today. We will resume patient's IV fluids at 125/h - Time Time Spent with patient: Less than 15 minutes Medications reviewed and adjusted accordingly: Yes Anticipated discharge: Home Within: within 24 hours
[2019-02-13] MEDS: HYDROMORPHONE HCL INJ/PF 2 MG/ML AMPULE IV PRN ×7 (03:09→17:13)
[2019-02-13] MEDS: DIPHENHYDRAMINE HCL 50 MG/ML VIAL IV PRN ×2 (03:10→10:38)
--- NOTE | 2019-02-13 08:24 | PDOC DISCHARGE SUMMARY ---
Impression - Admit/DC Date/PCP Admission Date/Primary Care Provider: 02/02/19 12:45 BETH STAPLETON MD Discharge Date: 02/13/19 - Discharge Diagnosis (1) Sickle cell crisis Is this a current diagnosis for this admission?: Yes (2) Opiate dependence, continuous Is this a current diagnosis for this admission?: Yes - Assessment Summary: I have ordered a two-view chest x-ray for today. I have reviewed his medications which appear to be appropriate, will do serial labs Continue IV fluids This morning's pulse rate is 101 on admission it was 81 Morning's blood pressure is 127/81 on admission it was 129/86 O2 saturations 94% on room air, is 94% on admission all day yesterday it was at 100% 02/04/2019 chest x-ray yesterday was abnormal showing bibasilar traits, will proceed with CT angiogram as well as BNP today 02/05/2019 CT scan of the chest showed chronic changes plus new findings left upper and lower lobe, worse since previous scan. We will add IV Zithromax. Also add baclofen as well as patient's methadone back to schedule drugs, and decrease the frequency of IV Dilaudid 02/06/2019 Labs appear to be stable his white count is still normal 6.7 retic count has come down 5.44, electrolytes appear normal function looks normal Patient's pain management will be treated by hematology/oncology, who is well-known to the patient. As patient does not appear to be septic, be able to be discharged home when ready on p.o. antibiotics. Nurse was in the room during the discussion today. We will resume patient's IV fluids at 125/h - Additional Information Resuscitation Status: Full Code Discharge Diet: As Tolerated Discharge Activity: Activity As Tolerated Referrals: BETH STAPLETON MD [Primary Care Provider] - 02/27/19 3:15 pm Home Medications: Docusate Sodium [Colace 100 mg Capsule] 100 mg PO DAILYP PRN 02/02/19 Folic Acid [Folvite 1 mg Tablet] 1 mg PO DAILY 02/02/19 Hydroxyurea [Hydrea 500 mg Capsule] 1,500 mg PO DAILY 02/02/19 Ibuprofen [Motrin 600 mg Tablet] 600 mg PO Q6HP PRN 02/02/19 Methadone HCl [Dolophine HCl] 5 mg PO Q8 02/02/19 Oxycodone HCl [Oxycodone HCl 10 MG Tablet] 10 mg PO Q4HP PRN 02/02/19 Sennosides/Docusate 8.6-50 mg [Senna Plus Tablet] 1 tab PO BIDP PRN 02/02/19 History of Present Illiness History of Present Illness: MARISA GARBER is a 38 year old male who presented to ER with sickle cell crisis. Hospital Course Hospital Course: Patient was admitted for recurrent sickle cell crisis. Patient placed on medical surgical floor and given IV Dilaudid 3 mg every 2 hours. Patient is shown significant improvement can return home today. Physical Exam Vital Signs: Temp Pulse Resp BP Pulse Ox 98.0 F 77 14 117/71 97 02/13/19 00:48 02/13/19 00:48 02/13/19 00:48 02/13/19 00:48 02/13/19 00:48 Intake & Output 02/12/19 02/13/19 02/14/19 06:59 06:59 06:59 Intake Total 1708 3480 Output Total 3950 1725 Balance -2242 1755 Weight 89.6 kg 89.8 kg General appearance: PRESENT: no acute distress, well-developed, well-nourished Head exam: PRESENT: atraumatic, normocephalic Eye exam: PRESENT: conjunctiva pink, EOMI, PERRLA. ABSENT: scleral icterus Ear exam: PRESENT: normal external ear exam Mouth exam: PRESENT: moist, tongue midline Neck exam: ABSENT: carotid bruit, JVD, lymphadenopathy, thyromegaly Respiratory exam: PRESENT: clear to auscultation anastasiya. ABSENT: rales, rhonchi, wheezes Cardiovascular exam: PRESENT: RRR. ABSENT: diastolic murmur, rubs, systolic murmur Pulses: PRESENT: normal dorsalis pedis pul Vascular exam: PRESENT: normal capillary refill GI/Abdominal exam: PRESENT: normal bowel sounds, soft. ABSENT: distended, guarding, mass, organolmegaly, rebound, tenderness Rectal exam: PRESENT: deferred Extremities exam: PRESENT: full ROM. ABSENT: calf tenderness, clubbing, pedal edema Neurological exam: PRESENT: alert, awake, oriented to person, oriented to place, oriented to time, oriented to situation, CN II-XII grossly intact. ABSENT: motor sensory deficit Psychiatric exam: PRESENT: appropriate affect, normal mood. ABSENT: homicidal ideation, suicidal ideation Skin exam: PRESENT: dry, intact, warm. ABSENT: cyanosis, rash Results Laboratory Results: WBC 6.5 10^3/uL (4.0-10.5) 02/11/19 07:30 RBC 2.70 10^6/uL (4.35-5.55) L 02/11/19 07:30 Hgb 8.1 g/dL (13.5-17.0) L 02/11/19 07:30 Hct 23.7 % (37.9-51.0) L 02/11/19 07:30 MCV 88 fl (80-97) 02/11/19 07:30 MCH 30.2 pg (27.0-33.4) 02/11/19 07:30 MCHC 34.4 g/dL (32.0-36.0) 02/11/19 07:30 RDW 22.3 % (11.5-14.0) H 02/11/19 07:30 Plt Count 580 10^3/uL (150-450) H 02/11/19 07:30 Lymph % (Auto) Not Reportable 02/11/19 07:30 Crisp % (Auto) Not Reportable 02/11/19 07:30 Eos % (Auto) Not Reportable 02/11/19 07:30 Baso % (Auto) Not Reportable 02/11/19 07:30 Reticulocyte # 0.150 10^6/uL (0.028-0.122) H 02/06/19 08:10 Absolute Neuts (auto) Not Reportable 02/11/19 07:30 Absolute Lymphs (auto) Not Reportable 02/11/19 07:30 Absolute Monos (auto) Not Reportable 02/11/19 07:30 Absolute Eos (auto) Not Reportable 02/11/19 07:30 Absolute Basos (auto) Not Reportable 02/11/19 07:30 Total Counted 100 02/11/19 07:30 Seg Neutrophils % Not Reportable 02/11/19 07:30 Seg Neuts % (Manual) 56 % (42-78) 02/11/19 07:30 Band Neutrophils % 1 % (3-5) L 02/06/19 08:10 Lymphocytes % (Manual) 25 % (13-45) 02/11/19 07:30 Atypical Lymphs % 7 % (0) 02/11/19 07:30 Monocytes % (Manual) 6 % (3-13) 02/11/19 07:30 Eosinophils % (Manual) 4 % (0-6) 02/11/19 07:30 Basophils % (Manual) 2 % (0-2) 02/11/19 07:30 Abs Neuts (Manual) 3.6 10^3/uL (1.7-8.2) 02/11/19 07:30 Abs Lymphs (Manual) 2.1 10^3/uL (0.5-4.7) 02/11/19 07:30 Abs Monocytes (Manual) 0.4 10^3/uL (0.1-1.4) 02/11/19 07:30 Absolute Eos (Manual) 0.3 10^3/uL (0.0-0.6) 02/11/19 07:30 Abs Basophils (Manual) 0.1 10^3/uL (0.0-0.2) 02/11/19 07:30 Nucleated RBCs 1 /100 WBC (0) 02/03/19 03:20 Giant Platelets PRESENT 02/11/19 07:30 Platelet Comment INCREASED 02/11/19 07:30 Polychromasia 1+ 02/11/19 07:30 Hypochromasia 1+ 02/03/19 03:20 Poikilocytosis 2+ 02/11/19 07:30 Anisocytosis 3+ 02/11/19 07:30 Sickle Cells SLIGHT 02/11/19 07:30 Target Cells SLIGHT 02/11/19 07:30 Tear Drop Cells SLIGHT 02/11/19 07:30 Ovalocytes 1+ 02/11/19 07:30 Schistocytes 1+ 02/11/19 07:30 RBC Morph Comment 02/11/19 07:30 Retic Count (auto) 5.44 % (0.66-2.85) H 02/06/19 08:10 Sodium 143.4 mmol/L (137-145) 02/11/19 07:30 Potassium 4.4 mmol/L (3.6-5.0) 02/11/19 07:30 Chloride 105 mmol/L (98-107) 02/11/19 07:30 Carbon Dioxide 30 mmol/L (22-30) 02/11/19 07:30 Anion Gap 8 (5-19) 02/11/19 07:30 BUN 4 mg/dL (7-20) L 02/11/19 07:30 Creatinine 0.56 mg/dL (0.52-1.25) 02/11/19 07:30 Est GFR ( Amer) > 60 (>60) 02/11/19 07:30 Est GFR (MDRD) Non-Af > 60 (>60) 02/11/19 07:30 Glucose 110 mg/dL (75-110) 02/11/19 07:30 Calcium 8.9 mg/dL (8.4-10.2) 02/11/19 07:30 Magnesium 1.9 mg/dL (1.6-2.3) 02/03/19 03:20 Total Bilirubin 2.1 mg/dL (0.2-1.3) H 02/02/19 06:36 Direct Bilirubin 0.1 mg/dL (0.0-0.4) 02/02/19 06:36 Neonat Total Bilirubin Not Reportable 02/02/19 06:36 Neonat Direct Bilirubin Not Reportable 02/02/19 06:36 Neonat Indirect Bili Not Reportable 02/02/19 06:36 AST 28 U/L (17-59) 02/02/19 06:36 ALT 18 U/L (<50) 02/02/19 06:36 Alkaline Phosphatase 92 U/L (38-126) 02/02/19 06:36 Lactate Dehydrogenase 294 U/L (120-246) H 02/11/19 07:30 Troponin I < 0.012 ng/mL 02/02/19 06:36 NT-Pro-B Natriuret Pep 25 pg/mL (<125) 02/04/19 11:37 Total Protein 7.3 g/dL (6.3-8.2) 02/02/19 06:36 Albumin 3.9 g/dL (3.5-5.0) 02/02/19 06:36 02/02/19 02/04/19 06:36 11:37 Troponin I < 0.012 NT-Pro-B Natriuret Pep 25 Impressions: Chest X-Ray 02/03/19 00:00 IMPRESSION: WORSENING BILATERAL INFILTRATES AND PLEURAL EFFUSIONS. Chest CT 02/05/19 08:00 IMPRESSION: Airspace disease in the left upper lobe posteriorly, lingula, and left lower lobe, pneumonia versus atelectasis. These findings are increased compared to the study from 12/31/2018. Chronic interstitial and subpleural changes in the right base. Plan Time Spent: Greater than 30 Minutes Stroke Is this a Stroke Patient?: No Acute Heart Failure - Is this a Heart Failure Patient?: No
--- NOTE | 2019-02-13 09:35 | PDOC PROGRESS REPORT ---
Subjective Progress Note for:: 02/13/19 Subjective:: home o2 eval neg, otherwise planned for d/c home today, he tells me he has all needed meds so no rx needed from me or hospitalist team currently Reason For Visit: SICKLE CELL Physical Exam Vital Signs: Temp Pulse Resp BP Pulse Ox 98.0 F 77 14 136/99 H 97 02/13/19 08:41 02/13/19 08:41 02/13/19 08:41 02/13/19 08:41 02/13/19 08:41 Intake & Output 02/12/19 02/13/19 02/14/19 06:59 06:59 06:59 Intake Total 1708 3480 Output Total 3950 1725 Balance -2242 1755 Weight 89.6 kg 89.8 kg General appearance: PRESENT: no acute distress, well-developed, well-nourished Head exam: PRESENT: atraumatic, normocephalic Eye exam: PRESENT: conjunctiva pink, EOMI, PERRLA. ABSENT: scleral icterus Ear exam: PRESENT: normal external ear exam Mouth exam: PRESENT: moist, tongue midline Neck exam: ABSENT: carotid bruit, JVD, lymphadenopathy, thyromegaly Respiratory exam: PRESENT: clear to auscultation anastasiya. ABSENT: rales, rhonchi, wheezes Cardiovascular exam: PRESENT: RRR. ABSENT: diastolic murmur, rubs, systolic murmur Pulses: PRESENT: normal dorsalis pedis pul Vascular exam: PRESENT: normal capillary refill GI/Abdominal exam: PRESENT: normal bowel sounds, soft. ABSENT: distended, guarding, mass, organolmegaly, rebound, tenderness Rectal exam: PRESENT: deferred Extremities exam: PRESENT: full ROM. ABSENT: calf tenderness, clubbing, pedal edema Neurological exam: PRESENT: alert, awake, oriented to person, oriented to place, oriented to time, oriented to situation, CN II-XII grossly intact. ABSENT: motor sensory deficit Psychiatric exam: PRESENT: appropriate affect, normal mood. ABSENT: homicidal ideation, suicidal ideation Skin exam: PRESENT: dry, intact, warm. ABSENT: cyanosis, rash Results Laboratory Results: 02/11/19 07:30 02/11/19 07:30 02/02/19 02/04/19 06:36 11:37 Troponin I < 0.012 NT-Pro-B Natriuret Pep 25 Impressions: Chest X-Ray 02/03/19 00:00 IMPRESSION: WORSENING BILATERAL INFILTRATES AND PLEURAL EFFUSIONS. Chest CT 02/05/19 08:00 IMPRESSION: Airspace disease in the left upper lobe posteriorly, lingula, and left lower lobe, pneumonia versus atelectasis. These findings are increased compared to the study from 12/31/2018. Chronic interstitial and subpleural changes in the right base. 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
[2019-02-13] MEDS: BACLOFEN 10 MG TABLET PO SCH (10:29)
[2019-02-13] MEDS: DOCUSATE SODIUM 100 MG CAPSULE PO SCH ×2 (10:29→17:16)
[2019-02-13] MEDS: FOLIC ACID 1 MG TABLET PO SCH (10:29)
[2019-02-13] MEDS: HYDROXYUREA 500 MG CAPSULE PO SCH (10:36)
[2019-02-13 16:53] VITALS: BP 114/61
== END 2019-02-13 17:25 | disposition home or self-care (01) | DRG 812 ==
LOC: ER 05:16 → EH 11:49 → UNDOADMOB 11:49 → EH 12:45 → OBSVTOIN 12:45 → INTOOBSV 12:45 → 4N 12:46 → EH 12:46
PROVIDERS: ADMIT Hospitalist; ATTEND Hospitalist
DX: D57.01 Hb-SS disease with acute chest syndrome (principal); F11.20 Opioid dependence, uncomplicated; R52 Pain, unspecified; M79.10 Myalgia, unspecified site; Z88.1 Allergy status to other antibiotic agents; Z91.040 Latex allergy status; Z88.5 Allergy status to narcotic agent; Z88.8 Allergy status to other drugs, medicaments and biological substances; Z91.018 Allergy to other foods
CPT/HCPCS: 36415; 36591; 71046; 71250; 80048; 80053; 83615; 83735; 83880; 84484; 85025; 85045; 93005; 93010; 94799; 96361; 96374; 96375; 96376; 99285; J0456; J1170; J1200; J1642; J7030; J7060

== ENCOUNTER 2019-02-16 02:32 | Emergency (ER) | payer MEDICARE, MEDICAID ==
[2019-02-16] MEDS ORDERED: DIPHENHYDRAMINE HCL 50 MG/ML VIAL IV ONE ×2 (02:59→06:33)
[2019-02-16] MEDS ORDERED: HYDROMORPHONE HCL INJ/PF 2 MG/ML AMPULE IV ONE ×3 (02:59→07:10)
--- NOTE | 2019-02-16 03:01 | ER Document Report ---
ED General - General Chief Complaint: Sickle Cell Crisis Stated Complaint: SICKLE CELL PAIN Time Seen by Provider: 02/16/19 02:49 Primary Care Provider: BETH STAPLETON MD [Primary Care Provider] - Follow up as needed Notes: Patient is a 38-year-old male that comes to the emergency department for chief complaint of worsening pain due to sickle cell over the past day or so. He states that just before the raining started he started feeling bad but after that started he started hurting a lot mainly in his right hip and shoulder areas. He states he has a generalized ache as well. He denies shortness of breath, chest pain, nausea or vomiting, fever or chills. 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 He follows with local hematology Dr. Stapleton. He denies any recent medication changes. He states he was admitted to the hospital couple months ago when it was painful to breathe and he was much worse at that time reportedly. TRAVEL OUTSIDE OF THE [place] IN LAST 30 DAYS: No - Related Data Allergies/Adverse Reactions: famotidine [From Pepcid] Allergy (Severe, Verified 11/28/18 16:30) Anaphylaxis ketorolac tromethamine [From Toradol] Allergy (Severe, Verified 11/28/18 16:30) levofloxacin [From Levaquin] Allergy (Severe, Verified 11/28/18 16:30) meperidine HCl [From Demerol] Allergy (Severe, Verified 11/28/18 16:30) morphine [Morphine] Allergy (Severe, Verified 11/28/18 16:30) tramadol HCl [From Ultram] Allergy (Severe, Verified 11/28/18 16:30) amoxicillin [Amoxicillin] Allergy (Verified 11/28/18 16:30) fentanyl [Fentanyl] Allergy (Verified 11/28/18 16:30) latex [Latex] Allergy (Verified 11/28/18 16:30) ondansetron HCl [From Zofran] Allergy (Verified 11/28/18 16:30) Pork/Porcine Containing Products Allergy (Verified 11/28/18 16:30) Past Medical History - General Information source: Patient - Social History Smoking Status: Never Smoker Frequency of alcohol use: None Drug Abuse: None Lives with: Family Family History: Hypertension Patient has suicidal ideation: No Patient has homicidal ideation: No - Past Medical History Cardiac Medical History: Denies: Hx Atrial Fibrillation, Hx Congestive Heart Failure, Hx Coronary Artery Disease Pulmonary Medical History: Reports: Hx Pneumonia Denies: Hx Asthma, Hx Bronchitis, Hx COPD, Hx Tuberculosis Neurological Medical History: Reports: Hx Seizures. Denies: Hx Migraine, Hx Parkinson's Disease Endocrine Medical History: Denies: Hx Diabetes Mellitus Type 1, Hx Diabetes Mellitus Type 2 Renal/ Medical History: Denies: Hx Peritoneal Dialysis GI Medical History: Denies: Hx Cirrhosis, Hx Hepatitis Musculoskeletal Medical History: Denies Hx Arthritis, Denies Hx Gout, Reports Hx Musculoskeletal Deformity - right hip avascular necrosis Skin Medical History: Denies Hx Eczema, Denies Hx Psoriasis Psychiatric Medical History: Reports: Hx Depression Infectious Medical History: Denies: Hx Hepatitis Past Surgical History: Reports: Hx Appendectomy, Hx Vascular Surgery - L port placement, Other - Port placement - Immunizations Immunizations up to date: Yes Hx Diphtheria, Pertussis, Tetanus Vaccination: Yes Hx Pneumococcal Vaccination: 02/20/11 Review of Systems - Review of Systems Constitutional: No symptoms reported EENT: No symptoms reported Cardiovascular: No symptoms reported Respiratory: No symptoms reported Gastrointestinal: No symptoms reported Genitourinary: No symptoms reported Male Genitourinary: No symptoms reported Musculoskeletal: See HPI Skin: No symptoms reported Hematologic/Lymphatic: No symptoms reported Neurological/Psychological: No symptoms reported Physical Exam - Vital signs Vitals: Temp Pulse Resp BP Pulse Ox 98.3 F 77 20 171/108 H 94 02/16/19 02:38 02/16/19 02:38 02/16/19 02:38 02/16/19 02:38 02/16/19 02:38 - Notes Notes: GENERAL: Alert, interacts well. No acute distress. HEAD: Normocephalic, atraumatic. EYES: Pupils equal, round, and reactive to light. Extraocular movements intact. ENT: Oral mucosa moist, tongue midline. Oropharynx unremarkable. Airway patent. NECK: Full range of motion. Supple. Trachea midline. LUNGS: Clear to auscultation bilaterally, no wheezes, rales, or rhonchi. No respiratory distress. HEART: Regular rate and rhythm. No murmur ABDOMEN: Soft, non-tender. Non-distended. Bowel sounds present in all 4 quadrants. GENITOURINARY: Deferred EXTREMITIES: Moves all 4 extremities spontaneously. No edema, normal radial and dorsalis pedis pulses bilaterally. No cyanosis. Patient does complain of some p ain with moving his legs especially the right hip. BACK: no cervical, thoracic, lumbar midline tenderness. No saddle anesthesia, normal distal neurovascular exam. Moves all extremities in full range of motion. NEUROLOGICAL: Alert and oriented x3. Normal speech. Cranial nerves II through XII grossly intact. PSYCH: Normal affect, normal mood. SKIN: Warm, dry, normal turgor. No rashes or lesions noted. Course - Re-evaluation Re-evalutation: Patient is somewhat hypertensive but is not tachycardic, febrile, and he is quite well-appearing and calm. Lungs are clear, no signs of distress. After initial medications patient states he feels only slightly improved, he will be given an additional round of medications. CBC shows stable hemoglobin, no leukocytosis. Reticulocyte count is elevated however. Bilirubin is not significantly changed however with the indirect measurement. Patient reevaluated. He states he feels a lot better but he is asking for 1 more dose and possible discharge. He will be reevaluated after this. His blood pressure is now 140 systolic and he appears very comfortable. 02/16/19 08:18 Because of repeated medications required for his pain and elevated reticulocyte counts I discussed the patient and offered admission. He declined. 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 I did discuss return p recautions. Patient states appreciation and agreement. Stable at time of discharge. - Vital Signs Vital signs: Temp Pulse Resp BP Pulse Ox 98.5 F 77 20 143/97 H 99 02/16/19 07:20 02/16/19 02:38 02/16/19 02:38 02/16/19 07:20 02/16/19 07:20 - Laboratory Result Diagrams: 02/16/19 03:20 02/16/19 03:20 Laboratory results interpreted by me: 02/16/19 02/16/19 03:20 03:20 RBC 2.75 L Hgb 8.5 L Hct 24.8 L RDW 25.0 H Plt Count 675 H Reticulocyte # 0.354 H Retic Count (auto) 12.90 H Total Bilirubin 2.6 H Total Protein 8.7 H Discharge - Discharge Clinical Impression: Sickle cell pain crisis Condition: Stable Disposition: HOME, SELF-CARE Additional Instructions: You have been evaluated and treated for pain related to sickle cell anemia. Follow-up closely with your deck engineer. Return if you worsen including fever/chills, difficulty breathing, severe worsening pain, or any other concerning or worsening symptoms. Referrals: BETH STAPLETON MD [Primary Care Provider] - Follow up as needed
[2019-02-16] MEDS ORDERED: NORMAL SALINE 1000 ML 1,000 ML IV ONE (03:19)
[2019-02-16 03:38] LABS: ABSOLUTE BASOPHILS # (AUTO) 0.2 10^3/uL (0.0-0.2); ABSOLUTE LYMPHOCYTES (AUTO) 2.4 10^3/uL (0.5-4.7); ABSOLUTE MONOCYTES (AUTO) 1.1 10^3/uL (0.1-1.4); ABSOLUTE NEUT (AUTO) 6.1 10^3/uL (1.7-8.2); ABSOLUTE RETICS # 0.354 10^6/uL (0.028-0.122); EOSINOPHILS % (AUTO) 0.5 % (0-6); HEMATOCRIT 24.8 % (37.9-51.0); HEMOGLOBIN 8.5 g/dL (13.5-17.0); MEAN CORPUSCULAR HEMOGLOBIN 31.1 pg (27.0-33.4); MEAN CORPUSCULAR HGB CONC 34.3 g/dL (32.0-36.0); MEAN CORPUSCULAR VOLUME 90 fl (80-97); MONOCYTES % (AUTO) 11.6 % (3-13); PLATELET COUNT 675 10^3/uL (150-450); RED BLOOD COUNT 2.75 10^6/uL (4.35-5.55); SEGMENTED NEUTROPHILS % (AUTO) 61.9 % (42-78); TOTAL CELLS COUNTED % (AUTO) 100 %; WHITE BLOOD COUNT 9.8 10^3/uL (4.0-10.5)
[2019-02-16 03:58] LABS: ANISOCYTOSIS 3+; POIKILOCYTOSIS 1+; POLYCHROMASIA 1+
[2019-02-16 03:59] LABS: SICKLE RED CELLS 1+
[2019-02-16 04:00] LABS: PLATELET COMMENT INCREASED
[2019-02-16 04:16] LABS: ALBUMIN 4.2 g/dL (3.5-5.0); ALKALINE PHOSPHATASE 108 U/L (38-126); ANION GAP 12 (5-19); ASPARTATE AMINO TRANSFERASE 38 U/L (17-59); BILIRUBIN,DIRECT 0.3 mg/dL (0.0-0.4); BILIRUBIN,TOTAL 2.6 mg/dL (0.2-1.3); BLOOD UREA NITROGEN 9 mg/dL (7-20); CALCIUM 9.2 mg/dL (8.4-10.2); CARBON DIOXIDE 26 mmol/L (22-30); CHLORIDE 105 mmol/L (98-107); GLUCOSE 92 mg/dL (75-110); POTASSIUM 3.7 mmol/L (3.6-5.0); TOTAL PROTEIN 8.7 g/dL (6.3-8.2)
[2019-02-16 09:47] VITALS: BP 138/86
== END 2019-02-16 09:48 | disposition home or self-care (01) ==
LOC: ER 02:32
DX: D57.00 Hb-SS disease with crisis, unspecified (principal); Z88.8 Allergy status to other drugs, medicaments and biological substances; Z88.1 Allergy status to other antibiotic agents; Z88.5 Allergy status to narcotic agent; Z88.0 Allergy status to penicillin; Z91.040 Latex allergy status; Z91.018 Allergy to other foods
CPT/HCPCS: 36415; 85025; 85045; 80053; J1200; J1170; J7030; J1642; 36591; 96361; 96374; 96375; 96376; 99284

== ENCOUNTER 2019-02-17 09:08 | Outpatient (CLI) | payer MEDICARE, MEDICAID ==
[~2019-02-17 09:08] MED LIST changes: +DIPHENHYDRAMINE HCL 25 MG in NORMAL SALINE 50 ML INJ PRN
[2019-02-17 09:26] VITALS: BP 146/104
== END 2019-02-17 11:16 | disposition home or self-care (01) ==
LOC: II 09:08 → 5TH 09:10 → II 11:16
PROVIDERS: ATTEND Internal Medicine
PROC: 3E0437Z Introduction of Electrolytic and Water Balance Substance into Central Vein, Percutaneous Approach (ICD-10-PCS; principal; 2019-02-17)
PROC: 3E043GC Introduction of Other Therapeutic Substance into Central Vein, Percutaneous Approach (ICD-10-PCS; 2019-02-17)
DX: D57.1 Sickle-cell disease without crisis (principal); E86.0 Dehydration; R52 Pain, unspecified
CPT/HCPCS: 96365; 96375; 96361; J1200; J1170; J1642

== ENCOUNTER 2019-02-17 18:00 | Emergency (ER) | payer MEDICARE, MEDICAID ==
[2019-02-17 18:10] VITALS: BP 157/104
[2019-02-17 18:43] LABS: HEMOGLOBIN 8.8 g/dL (13.5-17.0); MEAN CORPUSCULAR HEMOGLOBIN 31.3 pg (27.0-33.4); MEAN CORPUSCULAR HGB CONC 33.7 g/dL (32.0-36.0); MEAN CORPUSCULAR VOLUME 93 fl (80-97); PLATELET COUNT 639 10^3/uL (150-450); RED CELL DISTRIBUTION WIDTH 26.3 % (11.5-14.0); WHITE BLOOD COUNT 9.9 10^3/uL (4.0-10.5)
[2019-02-17 18:59] LABS: ALBUMIN 4.2 g/dL (3.5-5.0); CARBON DIOXIDE 24 mmol/L (22-30)
[2019-02-17 19:00] LABS: ALKALINE PHOSPHATASE 108 U/L (38-126); ASPARTATE AMINO TRANSFERASE 29 U/L (17-59); BILIRUBIN,DIRECT 0.2 mg/dL (0.0-0.4); BILIRUBIN,TOTAL 1.8 mg/dL (0.2-1.3); BLOOD UREA NITROGEN 4 mg/dL (7-20); CALCIUM 8.9 mg/dL (8.4-10.2); GLUCOSE 111 mg/dL (75-110); POTASSIUM 3.4 mmol/L (3.6-5.0); TOTAL PROTEIN 8.7 g/dL (6.3-8.2)
[2019-02-17 19:02] LABS: ANION GAP 12 (5-19); CHLORIDE 102 mmol/L (98-107)
[2019-02-17 19:11] LABS: ABSOLUTE LYMPHOCYTES# (MANUAL) 2.2 10^3/uL (0.5-4.7); ABSOLUTE MONOCYTES # (MANUAL) 0.7 10^3/uL (0.1-1.4); BAND NEUTROPHILS % (MANUAL) 1 % (3-5); BASOPHILS % (MANUAL) 0 % (0-2); EOSINOPHILS % (MANUAL) 1 % (0-6); HYPOCHROMASIA 2+; LYMPHOCYTES % (MANUAL) 20 % (13-45); MONOCYTES % (MANUAL) 7 % (3-13); POLYCHROMASIA 2+; SEGMENTED NEUTROPHILS % (MAN) 69 % (42-78); TOTAL CELLS COUNTED 100
[2019-02-17 19:12] LABS: ANISOCYTOSIS 3+; OVALOCYTES 2+; PLATELET COMMENT INCREASED; POIKILOCYTOSIS 2+; TARGET CELLS 2+
[2019-02-17 19:13] LABS: SICKLE RED CELLS 1+
--- NOTE | 2019-02-17 19:23 | ER Document Report ---
ED General Pain - General Chief Complaint: Pain All Over Stated Complaint: SICK/ABDOMINAL PAIN Time Seen by Provider: 02/17/19 19:23 Primary Care Provider: BETH STAPLETON MD [Primary Care Provider] - Follow up as needed Mode of Arrival: Ambulatory Information source: Patient Notes: HISTORY OF PRESENT ILLNESS: Patient is a 38-year-old male with a past medical history of sickle cell disease who presents with over 1 month of worsening and persistent body pain including chest pain, back pain, and global joint pain. The patient reports that he gets admitted "usually twice a month for the same thing," reports that he has a port and receives infusions for his pain control as an outpatient. He reports that he takes oxycodone for pain control at home but this is not improving his symptoms. He reports being allergic to "every pain medicine but Dilaudid, eithe r it does not work or I react to it." Location: Global Onset: Chronic Alleviation: None Provocation: Movement, breathing Quality: Aching, sharp Radiation: Global Severity: Moderate to severe Timing: Onset History of CAD: None Associated symptoms: Denies shortness of breath, no vomiting or diarrhea, no swelling of extremities REVIEW OF SYSTEMS: CONSTITUTIONAL : Denies fever or chills, no sweats. Denies recent illness. EENT: Denies eye, ear, throat, or mouth pain or symptoms. Denies nasal or sinus congestion. CARDIOVASCULAR: Positive for chest pain. Denies swelling of the legs. RESPIRATORY: Denies cough, cold, or chest congestion. Denies shortness of breath or difficulty breathing. Denies wheezing. GASTROINTESTINAL: Denies abdominal pain. Denies nausea, vomiting, or diarrhea. Denies constipation. GENITOURINARY: Denies difficulty urinating, painful urination, burning, frequ ency, or blood in urine. MUSCULOSKELETAL: Positive for global pain, back pain, and diffuse joint pain. SKIN: Denies rash or skin lesions. HEMATOLOGIC : Denies easy bruising or bleeding. LYMPHATIC: Denies swollen, enlarged glands. NEUROLOGICAL: Denies altered mental status or loss of consciousness. Denies headache. Denies weakness or paralysis or loss of use of either side. Denies problems with gait or speech. Denies sensory or motor loss. PSYCHIATRIC: Denies anxiety or stress or depression. All other systems reviewed and negative. PHYSICAL EXAMINATION: GENERAL: Tired-appearing, well-nourished and in no acute distress. HEAD: Atraumatic, normocephalic. No scalp deformity, depression, or crepitance. EYES: Pupils are 3 mm and equal/round/reactive to light, extraocular movements intact, sclera anicteric, conjunctiva are normal. ENT: Nares patent bilaterally, oropharynx. Moist mucous membranes. No tonsil hypertrophy. NECK: Normal range of motion, supple without lymphadenopathy. LUNGS: Breath sounds present, equal, and clear to auscultation bilaterally. No wheezes, rales, or rhonchi. HEART: Regular rate and rhythm without murmurs, rubs, or gallops. 2+ peripheral pulses. Normal capillary refill. ABDOMEN: Soft, nontender, nondistended. Normoactive bowel sounds. No guarding, no rebound. No masses appreciated. BACK: Normal contour, no midline tenderness. Rectal exam deferred. GENITAL/PELVIC: Deferred. EXTREMITIES: Normal range of motion, no pitting or edema. No cyanosis. NEUROLOGICAL: No focal neurological deficits. Moves all extremities spontaneously and on command. PSYCH: Normal mood, normal affect. No suicidal thoughts/ideations. No homicidal thoughts/ideations. No hallucinations. SKIN: Warm, dry, normal turgor, no rashes or lesions noted. ASSESSMENT AND PLAN: This patient is a 38-year-old male who presents with acute on chronic sickle cell pain. Patient reports that "they always give me Dilaudid because that is the only thing that works for me." After telling the patient that my practice is to not give Dilaudid outside of end-of-life care, the patient reports "everybody else gives it to me and if you do not I will just leave and go somew here else." I told the patient that I was willing to try other alternatives, including low-dose ketamine and even intravascular fentanyl, the patient says "you do not understand my pain, I do not understand why you want me to hurt like this." I again told the patient I was concerned that chronic use of Dilaudid could result in addiction and harmful side effects. The patient responded by saying, "I am just going to leave then since you will not give me my Dilaudid." 1. Will attempt blood work if the patient is agreeable to stay. 2. Will give IV fluids with supplemental oxygen and pain control with either IV morphine or oral Percocet. TRAVEL OUTSIDE OF THE [place] IN LAST 30 DAYS: No - HPI Onset: Other Onset/Duration: Constant Quality of pain: Achy Severity: Severe Pain Level: 5 Context: Chronic problem Typical of prior episodes of painful crisis: Yes Genotype: SS Associated symptoms: Muscle aches Exacerbated by: Movement Relieved by: Denies Similar symptoms previously: Yes Recently seen / treated by doctor: Yes - Related Data Allergies/Adverse Reactions: famotidine [From Pepcid] Allergy (Severe, Verified 02/17/19 18:09) Anaphylaxis ketorolac tromethamine [From Toradol] Allergy (Severe, Verified 02/17/19 18:09) levofloxacin [From Levaquin] Allergy (Severe, Verified 02/17/19 18:09) meperidine HCl [From Demerol] Allergy (Severe, Verified 02/17/19 18:09) morphine [Morphine] Allergy (Severe, Verified 02/17/19 18:09) tramadol HCl [From Ultram] Allergy (Severe, Verified 02/17/19 18:09) amoxicillin [Amoxicillin] Allergy (Verified 02/17/19 18:09) fentanyl [Fentanyl] Allergy (Verified 02/17/19 18:09) latex [Latex] Allergy (Verified 02/17/19 18:09) ondansetron HCl [From Zofran] Allergy (Verified 02/17/19 18:09) Pork/Porcine Containing Products Allergy (Verified 02/17/19 18:09) Past Medical History - General Information source: Patient - Social History Smoking Status: Never Smoker Chew tobacco use (# tins/day): No Frequency of alcohol use: None Drug Abuse: None Lives with: Family Family History: Hypertension Patient has suicidal ideation: No Patient has homicidal ideation: No - Past Medical History Cardiac Medical History: Reports: None Denies: Hx Atrial Fibrillation, Hx Congestive Heart Failure, Hx Coronary Artery Disease Pulmonary Medical History: Reports: Hx Pneumonia Denies: Hx Asthma, Hx Bronchitis, Hx COPD, Hx Tuberculosis EENT Medical History: Reports: None Neurological Medical History: Reports: Hx Seizures. Denies: Hx Migraine, Hx Pa rkinson's Disease Endocrine Medical History: Reports: None. Denies: Hx Diabetes Mellitus Type 1, Hx Diabetes Mellitus Type 2 Renal/ Medical History: Reports: None. Denies: Hx Peritoneal Dialysis Malignancy Medical History: Reports None GI Medical History: Reports: None. Denies: Hx Cirrhosis, Hx Hepatitis Musculoskeletal Medical History: Denies Hx Arthritis, Denies Hx Gout, Reports Hx Musculoskeletal Deformity - right hip avascular necrosis Skin Medical History: Reports None, Denies Hx Eczema, Denies Hx Psoriasis Psychiatric Medical History: Reports: Hx Depression Traumatic Medical History: Reports: None Infectious Medical History: Reports: None. Denies: Hx Hepatitis Past Surgical History: Reports: Hx Appendectomy, Hx Vascular Surgery - L port placement, Other - Port placement - Immunizations Immunizations up to date: Yes Hx Diphtheria, Pertussis, Tetanus Vaccination: Yes Hx Pneumococcal Vaccination: 02/20/11 Review of Systems - Review of Systems Constitutional: No symptoms reported EENT: No symptoms reported Cardiovascular: See HPI, Chest pain Respiratory: No symptoms reported Gastrointestinal: No symptoms reported Genitourinary: No symptoms reported Male Genitourinary: No symptoms reported Musculoskeletal: See HPI, Back pain, Joint pain, Muscle pain Skin: No symptoms reported Hematologic/Lymphatic: No symptoms reported Neurological/Psychological: No symptoms reported Physical Exam - Vital signs Vitals: Resp 19 02/17/19 18:03 Interpretation: Normal Course - Re-evaluation Re-evalutation: 02/17/19 19:47 Patient has decided to leave AGAINST MEDICAL ADVICE. - Vital Signs Vital signs: Temp Pulse Resp BP Pulse Ox 19 157/104 H 97 02/17/19 18:05 02/17/19 18:05 02/17/19 18:05 - Laboratory Result Diagrams: 02/17/19 18:20 02/17/19 18:20 Laboratory results interpreted by me: 02/17/19 02/17/19 18:20 18:20 RBC 2.80 L Hgb 8.8 L Hct 26.0 L RDW 26.3 H Plt Count 639 H Band Neutrophils % 1 L Potassium 3.4 L BUN 4 L Glucose 111 H Total Bilirubin 1.8 H Total Protein 8.7 H Discharge - Discharge Clinical Impression: Sickle-cell disease with pain Condition: Good Disposition: AGAINST MEDICAL ADVICE Referrals: BETH STAPLETON MD [Primary Care Provider] - Follow up as needed
[2019-02-18 08:59] LABS: NUCLEATED RED BLOOD CELLS 9 /100 WBC (0)
== END 2019-02-17 19:49 | disposition left against medical advice (07) ==
LOC: ER 18:00
DX: D57.00 Hb-SS disease with crisis, unspecified (principal); R07.9 Chest pain, unspecified; Z88.0 Allergy status to penicillin; Z91.040 Latex allergy status; Z88.6 Allergy status to analgesic agent
CPT/HCPCS: 36415; 80053; 83690; 85025; 99284

== ENCOUNTER 2019-02-18 08:25 | Outpatient (CLI) | payer MEDICARE, MEDICAID ==
[~2019-02-18 08:25] MED LIST changes: -DIPHENHYDRAMINE HCL 25 MG in NORMAL SALINE 50 ML INJ PRN
[2019-02-18 10:18] VITALS: BP 152/103
== END 2019-02-18 10:28 | disposition home or self-care (01) ==
LOC: II 08:25 → 5TH 08:29 → II 10:28
PROVIDERS: ATTEND Internal Medicine
PROC: 3E043GC Introduction of Other Therapeutic Substance into Central Vein, Percutaneous Approach (ICD-10-PCS; principal; 2019-02-18)
PROC: 3E0437Z Introduction of Electrolytic and Water Balance Substance into Central Vein, Percutaneous Approach (ICD-10-PCS; 2019-02-18)
DX: D57.1 Sickle-cell disease without crisis (principal); E86.0 Dehydration; R52 Pain, unspecified
CPT/HCPCS: 96365; 96375; 96361; J1200; J1170; J1642

== ENCOUNTER 2019-02-18 21:13 | Inpatient (IN) | payer MEDICARE, MEDICAID ==
--- NOTE | 2019-02-18 22:04 | ER Document Report ---
ED Medical Screen (RME) - General Chief Complaint: Abdominal Pain Stated Complaint: ABDOMINAL PAIN,SICKLE CELL Time Seen by Provider: 02/18/19 21:59 Primary Care Provider: BETH STAPLETON MD [Primary Care Provider] - Follow up as needed Mode of Arrival: Ambulatory Information source: Patient Notes: This 38 year old male with history of sickle cell presents with c/o abdominal pain (feels like something is moving in his abdomen-per patient) for the past 3 days. Also complains of chest pain shortness of breath complaints of fever vomiting diarrhea. Denies trauma. Reports he has talked with Dr. Stapleton about this. He reports that he tried to fix it with fluids but it did not help. I have greeted and performed a rapid initial assessment of this patient. A comprehensive ED assessment and evaluation of the patient, analysis of test results and completion of the medical decision making process will be conducted by additional ED providers. Dictation of this chart was performed using voice recognition software; therefore, there may be some unintended grammatical errors. TRAVEL OUTSIDE OF THE [place] IN LAST 30 DAYS: No - Related Data Allergies/Adverse Reactions: famotidine [From Pepcid] Allergy (Severe, Verified 02/17/19 18:09) Anaphylaxis ketorolac tromethamine [From Toradol] Allergy (Severe, Verified 02/17/19 18:09) levofloxacin [From Levaquin] Allergy (Severe, Verified 02/17/19 18:09) meperidine HCl [From Demerol] Allergy (Severe, Verified 02/17/19 18:09) morphine [Morphine] Allergy (Severe, Verified 02/17/19 18:09) tramadol HCl [From Ultram] Allergy (Severe, Verified 02/17/19 18:09) amoxicillin [Amoxicillin] Allergy (Verified 02/17/19 18:09) fentanyl [Fentanyl] Allergy (Verified 02/17/19 18:09) latex [Latex] Allergy (Verified 02/17/19 18:09) ondansetron HCl [From Zofran] Allergy (Verified 02/17/19 18:09) Pork/Porcine Containing Products Allergy (Verified 02/17/19 18:09) Home Medications: folic acid. oxycodone Past Medical History - Past Medical History Cardiac Medical History: Denies: Hx Atrial Fibrillation, Hx Congestive Heart Failure, Hx Coronary Artery Disease Pulmonary Medical History: Reports: Hx Pneumonia Denies: Hx Asthma, Hx Bronchitis, Hx COPD, Hx Tuberculosis Neurological Medical History: Reports: Hx Seizures. Denies: Hx Migraine, Hx Parkinson's Disease Endocrine Medical History: Denies: Hx Diabetes Mellitus Type 1, Hx Diabetes Mellitus Type 2 Renal/ Medical History: Denies: Hx Peritoneal Dialysis GI Medical History: Denies: Hx Cirrhosis, Hx Hepatitis Musculoskeltal Medical History: Denies Hx Arthritis, Denies Hx Gout, Reports Hx Musculoskeletal Deformity - right hip avascular necrosis Skin Medical History: Denies Hx Eczema, Denies Hx Psoriasis Psychiatric Medical History: Reports: Hx Depression Infectious Medical History: Denies: Hx Hepatitis Past Surgical History: Reports: Hx Appendectomy, Hx Vascular Surgery - L port placement, Other - Port placement - Immunizations Immunizations up to date: Yes Hx Diphtheria, Pertussis, Tetanus Vaccination: Yes Physical Exam - Vital signs Vitals: Temp Pulse Resp BP Pulse Ox 98.0 F 85 18 153/99 H 97 02/18/19 21:29 02/18/19 21:29 02/18/19 21:29 02/18/19 21:29 02/18/19 21:29 Course - Vital Signs Vital signs: Temp Pulse Resp BP Pulse Ox 98.0 F 85 18 153/99 H 97 02/18/19 21:29 02/18/19 21:29 02/18/19 21:29 02/18/19 21:29 02/18/19 21:29 Doctor's Discharge - Discharge Referrals: BETH STAPLETON MD [Primary Care Provider] - Follow up as needed
[2019-02-19 04:31] LABS: ABSOLUTE RETICS # 0.412 10^6/uL (0.028-0.122); HEMATOCRIT 26.9 % (37.9-51.0); HEMOGLOBIN 8.9 g/dL (13.5-17.0); MEAN CORPUSCULAR HEMOGLOBIN 31.4 pg (27.0-33.4); MEAN CORPUSCULAR HGB CONC 33.1 g/dL (32.0-36.0); MEAN CORPUSCULAR VOLUME 95 fl (80-97); PLATELET COUNT 588 10^3/uL (150-450); RED BLOOD COUNT 2.83 10^6/uL (4.35-5.55); RED CELL DISTRIBUTION WIDTH 24.9 % (11.5-14.0); RETICULOCYTE COUNT (AUTO) 14.55 % (0.66-2.85)
--- NOTE | 2019-02-19 04:36 | ER Document Report ---
ED General - General Chief Complaint: Abdominal Pain Stated Complaint: ABDOMINAL PAIN,SICKLE CELL Time Seen by Provider: 02/19/19 04:36 Primary Care Provider: BETH STAPLETON MD [Primary Care Provider] - Follow up as needed Mode of Arrival: Ambulatory Information source: Patient Notes: HISTORY OF PRESENT ILLNESS: Patient is a 38-year-old male with a past medical history of sickle cell disease who presents with worsening abdominal pain as well as full body aches and pains. Patient sees hematology/oncology where he had an infusion of IV fluids as well as Dilaudid earlier yesterday, he reports his pain was momentarily improved but now has come back again. Now he has left lower sided abdominal pain that is worse with movement and bending. He reports normal bowel movements and normal urination, no hematuria or dysuria, no chest pain or shortness of breath. Location: Global Onset: Chronic Alleviation: None Provocation: Movement Quality: Aching, sharp Radiation: Abdomen Severity: Moderate to severe Timing: Onset History of CAD: None Associated symptoms: Denies shortness of breath, no vomiting or diarrhea, no swelling of extremities REVIEW OF SYSTEMS: CONSTITUTIONAL : Denies fever or chills, no sweats. Denies recent illness. EENT: Denies eye, ear, throat, or mouth pain or symptoms. Denies nasal or sinus congestion. CARDIOVASCULAR: Positive for chest pain. Denies swelling of the legs. RESPIRATORY: Denies cough, cold, or chest congestion. Denies shortness of breath or difficulty breathing. Denies wheezing. GASTROINTESTINAL: Positive for abdominal pain. Positive for nausea but no vomiting or diarrhea. Denies constipation. GENITOURINARY: Denies difficulty urinating, painful urination, burning, frequency, or blood in urine. MUSCULOSKELETAL: Positive for global pain, back pain, and diffuse joint pain. SKIN: Denies rash or skin lesions. HEMATOLOGIC : Denies easy bruising or bleeding. LYMPHATIC: Denies swollen, enlarged glands. NEUROLOGICAL: Denies altered mental status or loss of consciousness. Denies headache. Denies weakness or paralysis or loss of use of either side. Denies problems with gait or speech. Denies sensory or motor loss. PSYCHIATRIC: Denies anxiety or stress or depression. All other systems reviewed and negative. PHYSICAL EXAMINATION: GENERAL: Tired-appearing, well-nourished and in no acute distress. HEAD: Atraumatic, normocephalic. No scalp deformity, depression, or crepitance. EYES: Pupils are 3 mm and equal/round/reactive to light, extraocular movements intact, sclera anicteric, conjunctiva are normal. ENT: Nares patent bilaterally, oropharynx. Moist mucous membranes. No tonsil hypertrophy. NECK: Normal range of motion, supple without lymphadenopathy. LUNGS: Breath sounds present, equal, and clear to auscultation bilaterally. No wheezes, rales, or rhonchi. HEART: Regular rate and rhythm without murmurs, rubs, or gallops. 2+ peripheral pulses. Normal capillary refill. ABDOMEN: Soft, mild left lower quadrant tenderness without rebound or guarding, nondistended. Normoactive bowel sounds. No guarding, no rebound. No masses appreciated. BACK: Normal contour, no midline tenderness. Rectal exam deferred. GENITAL/PELVIC: Deferred. EXTREMITIES: Normal range of motion, no pitting or edema. No cyanosis. NEUROLOGICAL: No focal neurological deficits. Moves all extremities spontaneously and on command. PSYCH: Normal mood, normal affect. No suicidal thoughts/ideations. No homicidal thoughts/ideations. No hallucinations. SKIN: Warm, dry, normal turgor, no rashes or lesions noted. ASSESSMENT AND PLAN: This patient is a 38-year-old male who presents with acute worsening abdominal pain and generalized body pain consistent with known sickle cell disease. 1. Will obtain blood work, reticulocyte count, KUB x-ray, and reassess. 2. Will give IV fluids with supplemental oxygen and pain control with oral Percocet. TRAVEL OUTSIDE OF THE [place] IN LAST 30 DAYS: No - HPI Onset: Just prior to arrival Onset/Duration: Sudden Quality of pain: Achy, Stabbing, Throbbing Severity: Severe Pain Level: 5 Associated symptoms: Headache, Nausea, Other - Abdominal pain Exacerbated by: Movement Relieved by: Denies Similar symptoms previously: Yes Recently seen / treated by doctor: Yes - Related Data Allergies/Adverse Reactions: famotidine [From Pepcid] Allergy (Severe, Verified 02/17/19 18:09) Anaphylaxis ketorolac tromethamine [From Toradol] Allergy (Severe, Verified 02/17/19 18:09) levofloxacin [From Levaquin] Allergy (Severe, Verified 02/17/19 18:09) meperidine HCl [From Demerol] Allergy (Severe, Verified 02/17/19 18:09) morphine [Morphine] Allergy (Severe, Verified 02/17/19 18:09) tramadol HCl [From Ultram] Allergy (Severe, Verified 02/17/19 18:09) amoxicillin [Amoxicillin] Allergy (Verified 02/17/19 18:09) fentanyl [Fentanyl] Allergy (Verified 02/17/19 18:09) latex [Latex] Allergy (Verified 02/17/19 18:09) ondansetron HCl [From Zofran] Allergy (Verified 02/17/19 18:09) Pork/Porcine Containing Products Allergy (Verified 02/17/19 18:09) Home Medications: folic acid. oxycodone Past Medical History - General Information source: Patient - Social History Smoking Status: Never Smoker Chew tobacco use (# tins/day): No Frequency of alcohol use: None Drug Abuse: None Lives with: Alone Family History: Hypertension Patient has suicidal ideation: No Patient has homicidal ideation: No - Past Medical History Cardiac Medical History: Reports: None Denies: Hx Atrial Fibrillation, Hx Congestive Heart Failure, Hx Coronary Artery Disease Pulmonary Medical History: Reports: Hx Pneumonia Denies: Hx Asthma, Hx Bronchitis, Hx COPD, Hx Tuberculosis EENT Medical History: Reports: None Neurological Medical History: Reports: Hx Seizures. Denies: Hx Migraine, Hx Parkinson's Disease Endocrine Medical History: Reports: None. Denies: Hx Diabetes Mellitus Type 1, Hx Diabetes Mellitus Type 2 Renal/ Medical History: Reports: None. Denies: Hx Peritoneal Dialysis Malignancy Medical History: Reports None GI Medical History: Reports: None. Denies: Hx Cirrhosis, Hx Hepatitis Musculoskeletal Medical History: Denies Hx Arthritis, Denies Hx Gout, Reports Hx Musculoskeletal Deformity - right hip avascular necrosis Skin Medical History: Reports None, Denies Hx Eczema, Denies Hx Psoriasis Psychiatric Medical History: Reports: Hx Depression Traumatic Medical History: Reports: None Infectious Medical History: Reports: None. Denies: Hx Hepatitis Past Surgical History: Reports: Hx Appendectomy, Hx Vascular Surgery - L port placement, Other - Port placement - Immunizations Immunizations up to date: Yes Hx Diphtheria, Pertussis, Tetanus Vaccination: Yes Hx Pneumococcal Vaccination: 02/20/11 Review of Systems - Review of Systems Constitutional: No symptoms reported EENT: No symptoms reported Cardiovascular: No symptoms reported Respiratory: No symptoms reported Gastrointestinal: See HPI, Abdominal pain Genitourinary: No symptoms reported Male Genitourinary: No symptoms reported Musculoskeletal: No symptoms reported, See HPI, Back pain, Joint pain Skin: No symptoms reported Hematologic/Lymphatic: No symptoms reported Neurological/Psychological: No symptoms reported -: Yes All other systems reviewed and negative Physical Exam - Vital signs Vitals: Temp Pulse Resp BP Pulse Ox 98.0 F 85 18 153/99 H 97 02/18/19 21:29 02/18/19 21:29 02/18/19 21:29 02/18/19 21:29 02/18/19 21:29 Interpretation: Normal Course - Re-evaluation Re-evalutation: 02/19/19 06:25 Labs are appropriate. Patient will need to be admitted for pain control. - Vital Signs Vital signs: Temp Pulse Resp BP Pulse Ox 98.0 F 85 18 134/82 H 100 02/18/19 21:29 02/18/19 21:29 02/18/19 21:29 02/19/19 05:01 02/19/19 05:02 - Laboratory Result Diagrams: 02/19/19 03:56 02/19/19 03:56 Laboratory results interpreted by me: 02/19/19 02/19/19 02/19/19 03:56 03:56 05:36 WBC 11.3 H RBC 2.83 L Hgb 8.9 L Hct 26.9 L RDW 24.9 H Plt Count 588 H Reticulocyte # 0.412 H Lymphocytes % (Manual) 12 L Abs Neuts (Manual) 8.7 H Retic Count (auto) 14.55 H Potassium 3.3 L BUN 6 L Total Bilirubin 1.9 H Total Protein 8.9 H Urine Ketones 20 H - Diagnostic Test Radiology reviewed: Image reviewed, Reports reviewed - Consults Dr. Stapleton Time consulted: 05:26 - patient needs admission for pain crisis Consulted provider: will see as inpatient - Transfer of Care Care transferred to following provider: Dr. Wright Discharge - Discharge Clinical Impression: Sickle cell pain crisis Condition: Stable Disposition: ADMITTED INPATIENT Admitting Provider: Betzy (Hospitalist) Referrals: BETH STAPLETON MD [Primary Care Provider] - Follow up as needed
[2019-02-19] MEDS ORDERED: NORMAL SALINE 1000 ML 1,000 ML IV ONE (04:46)
[2019-02-19 04:48] LABS: ALBUMIN 4.4 g/dL (3.5-5.0); ALKALINE PHOSPHATASE 98 U/L (38-126); ANION GAP 11 (5-19); ASPARTATE AMINO TRANSFERASE 24 U/L (17-59); BILIRUBIN,DIRECT 0.3 mg/dL (0.0-0.4); BILIRUBIN,TOTAL 1.9 mg/dL (0.2-1.3); BLOOD UREA NITROGEN 6 mg/dL (7-20); CALCIUM 9.1 mg/dL (8.4-10.2); CARBON DIOXIDE 26 mmol/L (22-30); CHLORIDE 104 mmol/L (98-107); GLUCOSE 86 mg/dL (75-110); POTASSIUM 3.3 mmol/L (3.6-5.0); TOTAL PROTEIN 8.9 g/dL (6.3-8.2)
[2019-02-19 04:53] LABS: ABSOLUTE LYMPHOCYTES# (MANUAL) 1.4 10^3/uL (0.5-4.7); ABSOLUTE MONOCYTES # (MANUAL) 1.2 10^3/uL (0.1-1.4); BASOPHILS % (MANUAL) 1 % (0-2); EOSINOPHILS % (MANUAL) 1 % (0-6); LYMPHOCYTES % (MANUAL) 12 % (13-45); MONOCYTES % (MANUAL) 10 % (3-13); NUCLEATED RED BLOOD CELLS 8 /100 WBC (0); SEGMENTED NEUTROPHILS % (MAN) 76 % (42-78); TOTAL CELLS COUNTED 100
[2019-02-19 04:56] LABS: ANISOCYTOSIS 3+; HOWELL-JOLLY BODIES PRESENT; OVALOCYTES SLIGHT; PLATELET COMMENT INCREASED; POIKILOCYTOSIS 1+; POLYCHROMASIA 1+; SICKLE RED CELLS SLIGHT; TARGET CELLS 1+; TEAR DROP CELLS SLIGHT; TOXIC VACUOLATION PRESENT; WHITE BLOOD COUNT 11.3 10^3/uL (4.0-10.5)
[2019-02-19 05:46] LABS: APPEARANCE,URINE CLEAR; BILIRUBIN,URINE NEGATIVE (NEGATIVE); COLOR,URINE YELLOW; GLUCOSE, URINE NEGATIVE (NEGATIVE); KETONES,URINE 20 mg/dL (NEGATIVE); LEUKOCYTE ESTERASE,URINE NEGATIVE (NEGATIVE); NITRITE,URINE NEGATIVE (NEGATIVE); PROTEIN,URINE NEGATIVE (NEGATIVE); URINE SPECIFIC GRAVITY 1.008; UROBILINOGEN,URINE NEGATIVE mg/dL (<2.0)
[2019-02-19] MEDS ORDERED: METOCLOPRAMIDE HCL INJ/PF 10 MG/2 ML SDV IV ONE (06:20)
--- NOTE | 2019-02-19 06:20 | RADIOLOGY REPORT (SQ) ---
EXAM DESCRIPTION: X-ray abdomen 1 view CLINICAL DATA: 38-year-old male with abdominal pain. TECHNICAL DATA: A single AP supine x-ray of the abdomen was performed on 02/19/2019 at 5:11 AM. Comparison: 06/29/2011. FINDINGS: The bowel gas pattern is nonspecific and nonobstructive. No pathologic abdominal or pelvic calcifications are identified. There are several calcified pelvic phleboliths. No abnormal air collections are identified. No focal soft tissue abnormalities are seen. No acute osseous abnormalities are identified. IMPRESSION: Nonspecific nonobstructive bowel gas pattern.
--- NOTE | 2019-02-19 06:44 | ER Document Report ---
Doctor's Note Notes: 02/19/19 06:43 Patient has been accepted to the hospitalist for admission. Discharge - Discharge Clinical Impression: Sickle cell pain crisis Condition: Stable Disposition: ADMITTED INPATIENT Admitting Provider: Betzy (Hospitalist) Unit Admitted: Telemetry Referrals: BETH STAPLETON MD [Primary Care Provider] - Follow up as needed
[2019-02-19] MEDS ORDERED: HYDROMORPHONE HCL INJ/PF 2 MG/ML AMPULE IV ONE (07:29)
--- NOTE | 2019-02-19 08:28 | PDOC CONSULTATION ---
Consultation Consult Date: 02/19/19 Attending physician:: MARITZA WILLIS Provider Consulted: BETH STAPLETON Consult reason:: Patient with known history of sickle cell disease here with crisis History of Present Illness Admission Date/PCP: 02/19/19 07:41 BETH STAPLETON MD Patient complains of: Severe pain related to his sickle cell crisis, abdominal pain History of Present Illness: MARISA GARBER is a 38 year old male with long-standing history of sickle cell disease here with frequent admission for crisis, over the last 4 to 6 weeks he has been dealing with acute chest crisis, he originally presented about 6 weeks ago and we treated him with conservative management, and he improved and went home but then came back and only is been out of the hospital for a few days, we have been attempting as an outpatient to treat him continually as an outpatient with daily IV fluids and pain medications but unfortunately outpatient care has not been tolerated well, ultimately patient did get readmitted with severe pain, abdominal pain, shortness of breath. He was feeling abdominal bloating and pain, therefore KUB was done which was unr emarkable. Labs did indicate hemoglobin dropped 8.9 as well as reticulocytosis. Past Medical History Cardiac Medical History: Reports: None Denies: Atrial Fibrillation, Congestive Heart Failure, Coronary Artery Disease Pulmonary Medical History: Reports: Pneumonia Denies: Asthma, Bronchitis, Chronic Obstructive Pulmonary Disease (COPD), Tuberculosis EENT Medical History: Reports: None Neurological Medical History: Reports: Seizures Denies: Migraine Endocrine Medical History: Reports: None Denies: Diabetes Mellitus Type 1, Diabetes Mellitus Type 2 Renal/ Medical History: Reports: None Malignancy Medical History: Reports: None GI Medical History: Reports: None Denies: Cirrhosis, Hepatitis Musculoskeltal Medical History: Denies: Arthritis, Gout Skin Medical History: Reports: None Denies: Eczema, Psoriasis Psychiatric Medical History: Reports: Depression Traumatic Medical History: Reports: None Hematology: Reports: Anemia, Sickle Cell Disease Denies: Hemophilia, Bleeding Tendencies Infectious Medical History: Reports: None Past Surgical History Past Surgical History: Reports: Appendectomy, Vascular Surgery - L port placement, Other - Port placement Social History Information Source: Patient Lives with: Alone Smoking Status: Never Smoker Frequency of Alcohol Use: None Hx Recreational Drug Use: No Drugs: None Hx Prescription Drug Abuse: No - Advance Directive Resuscitation Status: Full Code Family History Family History: Hypertension Parental Family History Reviewed: Yes Children Family History Reviewed: Yes Sibling(s) Family History Reviewed.: Yes Medication/Allergy Allergies/Adverse Reactions: famotidine [From Pepcid] Allergy (Severe, Verified 02/17/19 18:09) Anaphylaxis ketorolac tromethamine [From Toradol] Allergy (Severe, Verified 02/17/19 18:09) levofloxacin [From Levaquin] Allergy (Severe, Verified 02/17/19 18:09) meperidine HCl [From Demerol] Allergy (Severe, Verified 02/17/19 18:09) morphine [Morphine] Allergy (Severe, Verified 02/17/19 18:09) tramadol HCl [From Ultram] Allergy (Severe, Verified 02/17/19 18:09) amoxicillin [Amoxicillin] Allergy (Verified 02/17/19 18:09) fentanyl [Fentanyl] Allergy (Verified 02/17/19 18:09) latex [Latex] Allergy (Verified 02/17/19 18:09) ondansetron HCl [From Zofran] Allergy (Verified 02/17/19 18:09) Pork/Porcine Containing Products Allergy (Verified 02/17/19 18:09) promethazine Allergy (Verified 02/19/19 08:13) Review of Systems Constitutional: PRESENT: anorexia, fatigue, weakness Cardiovascular: PRESENT: chest pain, dyspnea on exertion Gastrointestinal: PRESENT: abdominal pain, bloating Musculoskeletal: PRESENT: back pain Psychiatric: PRESENT: anxiety Physical Exam Vital Signs: Temp Pulse Resp BP Pulse Ox 98.7 F 85 18 134/82 H 100 02/19/19 07:08 02/18/19 21:29 02/18/19 21:29 02/19/19 05:01 02/19/19 05:02 Intake & Output 02/18/19 02/19/19 02/20/19 06:59 06:59 06:59 Intake Total 1000 Balance 1000 Weight 84.9 kg General appearance: PRESENT: no acute distress, well-developed, well-nourished Head exam: PRESENT: atraumatic, normocephalic Eye exam: PRESENT: conjunctiva pink, EOMI, PERRLA. ABSENT: scleral icterus Ear exam: PRESENT: normal external ear exam Mouth exam: PRESENT: moist, tongue midline Neck exam: ABSENT: carotid bruit, JVD, lymphadenopathy, thyromegaly Respiratory exam: PRESENT: clear to auscultation anastasiya. ABSENT: rales, rhonchi, wheezes Cardiovascular exam: PRESENT: RRR. ABSENT: diastolic murmur, rubs, systolic murmur Pulses: PRESENT: normal dorsalis pedis pul Vascular exam: PRESENT: normal capillary refill GI/Abdominal exam: PRESENT: normal bowel sounds, soft. ABSENT: distended, guarding, mass, organolmegaly, rebound, tenderness Rectal exam: PRESENT: deferred Extremities exam: PRESENT: full ROM. ABSENT: calf tenderness, clubbing, pedal edema Neurological exam: PRESENT: alert, awake, oriented to person, oriented to place, oriented to time, oriented to situation, CN II-XII grossly intact. ABSENT: motor sensory deficit Psychiatric exam: PRESENT: appropriate affect, normal mood. ABSENT: homicidal ideation, suicidal ideation Skin exam: PRESENT: dry, intact, warm. ABSENT: cyanosis, rash Results Laboratory Results: 02/19/19 03:56 02/19/19 03:56 02/19/19 02/19/19 02/19/19 03:56 03:56 05:36 WBC 11.3 H RBC 2.83 L Hgb 8.9 L Hct 26.9 L MCV 95 MCH 31.4 MCHC 33.1 RDW 24.9 H Plt Count 588 H Seg Neutrophils % Not Reportable Retic Count (auto) 14.55 H Sodium 140.7 Potassium 3.3 L Chloride 104 Carbon Dioxide 26 Anion Gap 11 BUN 6 L Creatinine 0.57 Est GFR ( Amer) > 60 Glucose 86 Calcium 9.1 Total Bilirubin 1.9 H AST 24 Alkaline Phosphatase 98 Total Protein 8.9 H Albumin 4.4 Urine Color YELLOW Urine Appearance CLEAR Urine pH 6.0 Ur Specific [place] 1.008 Urine Protein NEGATIVE Urine Glucose (UA) NEGATIVE Urine Ketones 20 H Urine Blood NEGATIVE Urine Nitrite NEGATIVE Ur Leukocyte Esterase NEGATIVE Urine WBC (Auto) 0 Urine RBC (Auto) 0 Impressions: KUB X-Ray 02/19/19 04:46 IMPRESSION: Nonspecific nonobstructive bowel gas pattern. Status: Image reviewed by me Assessment & Plan - Diagnosis (1) Sickle cell pain crisis Is this a current diagnosis for this admission?: Yes Plan: Is severe sickle cell crisis continued with likely continued acute chest crisis, start aggressive pain management, will start antiemetics, K pad for comfort, he does get frequent priapism during admission so we will order medications in case this happens, Benadryl. I have contacted [facility] and he has an appointment on February 28 and were trying to move that appointment up because I believe he may need outpatient exchange transfusions. However we will not be able to do that here at [place]. So he will need to do that at [facility]. (2) Acute chest syndrome Is this a current diagnosis for this admission?: Yes Plan: Continued moderate acute chest syndrome, continue with pain medication as above, oxygen. 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 - Time Time Spent: Greater than 70 Minutes - Inpatient Certification Based on my medical assessment, after consideration of the patient's comorbidities, presenting symptoms, or acuity I expect that the services needed warrant INPATIENT care.: Yes I certify that my determination is in accordance with my understanding of Medicare's requirements for reasonable and necessary INPATIENT services [42 CFR 412.3e].: Yes Medical Necessity: Need For IV Fluids, Need for Pain Control, Risk of Complication if Not Cared For in Hospital
[2019-02-19] MEDS ORDERED: DIPHENHYDRAMINE HCL 50 MG/ML VIAL ONE (08:42)
[2019-02-19] MEDS ORDERED: HYDROMORPHONE HCL INJ/PF 2 MG/ML AMPULE ONE (08:42)
[2019-02-19] MEDS ORDERED: BACLOFEN 10 MG TABLET PO PRN (08:47)
[2019-02-19] MEDS ORDERED: DIPHENHYDRAMINE HCL 50 MG/ML VIAL IV PRN (08:48)
[2019-02-19] MEDS ORDERED: PSEUDOEPHEDRINE HCL 30 MG TABLET PO PRN (08:48)
[2019-02-19] MEDS ORDERED: POLYETHYLENE GLYCOL 3350 POWDER 17 GM/1 PACKET PO PRN (08:50)
[2019-02-19] MEDS ORDERED: SENNOSIDES/DOCUSATE 8.6-50 MG 1 EACH TABLET PO PRN (08:50)
[2019-02-19] MEDS ORDERED: FOLIC ACID 1 MG TABLET PO SCH (10:00)
[2019-02-19] MEDS: HYDROMORPHONE HCL INJ/PF 2 MG/ML AMPULE IV PRN ×6 (10:51→22:26)
[2019-02-19] MEDS ORDERED: MAG HYDROX/AL HYDROX/SIMETH SUSP 30 ML UDCUP PO PRN (12:20)
[2019-02-19] MEDS ORDERED: ACETAMINOPHEN 325 MG TABLET PO PRN (12:20)
--- NOTE | 2019-02-19 12:20 | PDOC H&P ---
History of Present Illness Admission Date/PCP: 02/19/19 07:41 BETH STAPLETON MD Patient complains of: Severe pain and lethargy History of Present Illness: MARISA GARBER is a 38 year old male with a history of sickle cell anemia and multiple hospitalizations. Dr. Stapleton has been working with him and they are trying to arrange for exchange transfusions. He presents today with very severe pain and a markedly elevated reticulocyte count. He does hurt all over. He is not sure if the pain is localized to his chest and sometimes it is difficult to tell. Dr. Stapleton is consulting and will manage the patient's pain. Past Medical History Cardiac Medical History: Reports: None Denies: Atrial Fibrillation, Congestive Heart Failure, Coronary Artery Disease Pulmonary Medical History: Reports: Pneumonia Denies: Asthma, Bronchitis, Chronic Obstructive Pulmonary Disease (COPD), Tuberculosis EENT Medical History: Reports: None Neurological Medical History: Reports: Seizures Denies: Migraine Endocrine Medical History: Reports: None Denies: Diabetes Mellitus Type 1, Diabetes Mellitus Type 2 Renal/ Medical History: Reports: None Malignancy Medical History: Reports: None GI Medical History: Reports: None Denies: Cirrhosis, Hepatitis Musculoskeltal Medical History: Denies: Arthritis, Gout Skin Medical History: Reports: None Denies: Eczema, Psoriasis Psychiatric Medical History: Reports: Depression Traumatic Medical History: Reports: None Hematology: Reports: Anemia, Sickle Cell Disease Denies: Hemophilia, Bleeding Tendencies Infectious Medical History: Reports: None Past Surgical History Past Surgical History: Reports: Appendectomy, Vascular Surgery - L port placement, Other - Port placement Social History Information Source: Patient, [facility] Records Lives with: Alone Smoking Status: Never Smoker Electronic Cigarette use?: No Frequency of Alcohol Use: None Hx Recreational Drug Use: No Drugs: None Hx Prescription Drug Abuse: No - Advance Directive Resuscitation Status: Full Code Family History Family History: Hypertension Parental Family History Reviewed: Yes Children Family History Reviewed: Yes Sibling(s) Family History Reviewed.: Yes Medication/Allergy Home Medications: Docusate Sodium [Colace 100 mg Capsule] 100 mg PO DAILYP PRN 02/19/19 Folic Acid [Folvite 1 mg Tablet] 1 mg PO DAILY 02/19/19 Hydroxyurea [Hydrea 500 Mg Capsule] 1,500 mg PO DAILY 02/19/19 Ibuprofen [Motrin 600 mg Tablet] 600 mg PO Q6HP PRN 02/19/19 Methadone HCl [Dolophine Hcl] 5 mg PO Q8 02/19/19 Oxycodone HCl [Oxy-Ir 5 mg Tablet] 10 mg PO Q4HP PRN 02/19/19 Sennosides/Docusate 8.6-50 mg [Senna Plus Tablet] 1 tab PO BIDP PRN 02/19/19 Allergies/Adverse Reactions: famotidine [From Pepcid] Allergy (Severe, Verified 02/17/19 18:09) Anaphylaxis ketorolac tromethamine [From Toradol] Allergy (Severe, Verified 02/17/19 18:09) levofloxacin [From Levaquin] Allergy (Severe, Verified 02/17/19 18:09) meperidine HCl [From Demerol] Allergy (Severe, Verified 02/17/19 18:09) morphine [Morphine] Allergy (Severe, Verified 02/17/19 18:09) tramadol HCl [From Ultram] Allergy (Severe, Verified 02/17/19 18:09) amoxicillin [Amoxicillin] Allergy (Verified 02/17/19 18:09) fentanyl [Fentanyl] Allergy (Verified 02/17/19 18:09) latex [Latex] Allergy (Verified 02/17/19 18:09) ondansetron HCl [From Zofran] Allergy (Verified 02/17/19 18:09) Pork/Porcine Containing Products Allergy (Verified 02/17/19 18:09) promethazine Allergy (Verified 02/19/19 08:13) Review of Systems All systems: reviewed and no additional remarkable complaints except as stated Constitutional: PRESENT: other - Appears to be in significant pain Respiratory: PRESENT: other - Pleuritic-like pain Integumentary: PRESENT: other - Dry skin but no ulcerations Physical Exam Vital Signs: Temp Pulse Resp BP Pulse Ox 98.7 F 85 18 134/82 H 100 02/19/19 07:08 02/18/19 21:29 02/18/19 21:29 02/19/19 05:01 02/19/19 05:02 Intake & Output 02/18/19 02/19/19 02/20/19 06:59 06:59 06:59 Intake Total 1000 Balance 1000 Weight 84.9 kg General appearance: PRESENT: cooperative, severe distress, well-developed Head exam: PRESENT: atraumatic, normocephalic Eye exam: PRESENT: conjunctiva pale. ABSENT: scleral icterus Ear exam: PRESENT: normal external ear exam. ABSENT: bleeding, drainage Mouth exam: PRESENT: dry mucosa, tongue midline Neck exam: PRESENT: tenderness. ABSENT: full ROM Respiratory exam: PRESENT: clear to auscultation anastasiya - Decreased inspiratory phase due to pain with inspiration, symmetrical. ABSENT: accessory muscle use, rales, rhonchi, tachypnea, wheezes Cardiovascular exam: PRESENT: RRR, +S1, +S2, systolic murmur - 3/6 Pulses: PRESENT: normal radial pulses, normal dorsalis pedis pul GI/Abdominal exam: PRESENT: hypoactive bowel sounds, soft, tenderness - Diffuse nonspecific. ABSENT: distended Rectal exam: PRESENT: deferred Gentrourinary exam: ABSENT: indwelling catheter Extremities exam: ABSENT: joint swelling, pedal edema Musculoskeletal exam: PRESENT: normal inspection. ABSENT: deformity, full ROM - Secondary to pain Neurological exam: PRESENT: awake, oriented to person, oriented to place, oriented to time, oriented to situation, CN II-XII grossly intact. ABSENT: alert - Lethargic Psychiatric exam: PRESENT: flat affect. ABSENT: agitated, anxious Focused psych exam: ABSENT: delusional, restlessness Skin exam: PRESENT: other - No ulcerations noted Results Laboratory Results: 02/19/19 03:56 02/19/19 03:56 02/19/19 02/19/19 02/19/19 03:56 03:56 05:36 WBC 11.3 H RBC 2.83 L Hgb 8.9 L Hct 26.9 L MCV 95 MCH 31.4 MCHC 33.1 RDW 24.9 H Plt Count 588 H Seg Neutrophils % Not Reportable Retic Count (auto) 14.55 H Sodium 140.7 Potassium 3.3 L Chloride 104 Carbon Dioxide 26 Anion Gap 11 BUN 6 L Creatinine 0.57 Est GFR ( Amer) > 60 Glucose 86 Calcium 9.1 Total Bilirubin 1.9 H AST 24 Alkaline Phosphatase 98 Total Protein 8.9 H Albumin 4.4 Urine Color YELLOW Urine Appearance CLEAR Urine pH 6.0 Ur Specific [place] 1.008 Urine Protein NEGATIVE Urine Glucose (UA) NEGATIVE Urine Ketones 20 H Urine Blood NEGATIVE Urine Nitrite NEGATIVE Ur Leukocyte Esterase NEGATIVE Urine WBC (Auto) 0 Urine RBC (Auto) 0 Impressions: KUB X-Ray 02/19/19 04:46 IMPRESSION: Nonspecific nonobstructive bowel gas pattern. Assessment and Plan - Diagnosis (1) Sickle cell pain crisis Is this a current diagnosis for this admission?: Yes Plan: 02/19/2019-the patient's reticulocyte count is significantly elevated (14). This is the highest I have seen it during the course of all his admissions over the last year. IV fluids and continue hydroxyurea. Dr. Stapleton is consulting and will manage the patient's pain medications. I did discuss the case with Dr. Stapleton. He has been making arrangements to have the patient seen at [facility] for possible exchange transfusion. (2) Methadone dependence Is this a current diagnosis for this admission?: Yes Plan: 02/19/2019-continue pain management per Dr. Stapleton (3) Opiate dependence, continuous Is this a current diagnosis for this admission?: Yes Plan: 02/19/2019-continue pain management per Dr. Stapleton - Time Time Spent with patient: 35 or more minutes Medications reviewed and adjusted accordingly: Yes Anticipated discharge: Home - Inpatient Certification Based on my medical assessment, after consideration of the patient's comorbidities, presenting symptoms, or acuity I expect that the services needed warrant INPATIENT care.: Yes I certify that my determination is in accordance with my understanding of Medicare's requirements for reasonable and necessary INPATIENT services [42 CFR 412.3e].: Yes Medical Necessity: Failure to Improve With Outpatient Therapy, Need For IV Fluids, Need for Pain Control Post Hospital Care: D/C Finish Painter Documentation
[2019-02-19] MEDS ORDERED: IBUPROFEN 600 MG TABLET PO PRN (12:26)
[2019-02-19] MEDS: HEPARIN SOD (PORCINE) 5,000 UNIT/ML 1 ML VIAL SUBCUT SCH ×2 (13:18→22:27)
[2019-02-19] MEDS: METHADONE HCL 10 MG TABLET PO SCH ×2 (13:19→22:26)
[2019-02-19] MEDS: DIPHENHYDRAMINE HCL 50 MG/ML VIAL IV PRN ×2 (15:34→22:26)
[2019-02-19] MEDS: NORMAL SALINE 1000 ML 1,000 ML IV PRN ×2 (15:41→20:20)
[2019-02-19] MEDS: SENNOSIDES/DOCUSATE 8.6-50 MG 1 EACH TABLET PO PRN (22:26)
[2019-02-20] MEDS: NORMAL SALINE 1000 ML 1,000 ML IV PRN ×4 (00:31→23:15)
[2019-02-20] MEDS: HYDROMORPHONE HCL INJ/PF 2 MG/ML AMPULE IV PRN ×10 (00:32→23:32)
[2019-02-20] MEDS: DIPHENHYDRAMINE HCL 50 MG/ML VIAL IV PRN ×4 (04:42→23:31)
[2019-02-20 05:04] LABS: HEMATOCRIT 25.3 % (37.9-51.0); HEMOGLOBIN 8.7 g/dL (13.5-17.0); MEAN CORPUSCULAR HEMOGLOBIN 32.4 pg (27.0-33.4); MEAN CORPUSCULAR HGB CONC 34.5 g/dL (32.0-36.0); MEAN CORPUSCULAR VOLUME 94 fl (80-97); PLATELET COUNT 516 10^3/uL (150-450); RED BLOOD COUNT 2.69 10^6/uL (4.35-5.55); RED CELL DISTRIBUTION WIDTH 23.2 % (11.5-14.0); WHITE BLOOD COUNT 9.6 10^3/uL (4.0-10.5)
[2019-02-20 05:11] LABS: ALBUMIN 3.8 g/dL (3.5-5.0); ALKALINE PHOSPHATASE 82 U/L (38-126); ANION GAP 8 (5-19); ASPARTATE AMINO TRANSFERASE 18 U/L (17-59); BILIRUBIN,DIRECT 0.1 mg/dL (0.0-0.4); BILIRUBIN,TOTAL 1.5 mg/dL (0.2-1.3); BLOOD UREA NITROGEN 5 mg/dL (7-20); CALCIUM 8.9 mg/dL (8.4-10.2); CARBON DIOXIDE 28 mmol/L (22-30); CHLORIDE 103 mmol/L (98-107); GLUCOSE 83 mg/dL (75-110); POTASSIUM 3.8 mmol/L (3.6-5.0); TOTAL PROTEIN 7.6 g/dL (6.3-8.2)
[2019-02-20 05:29] LABS: ABSOLUTE LYMPHOCYTES# (MANUAL) 1.2 10^3/uL (0.5-4.7); ABSOLUTE MONOCYTES # (MANUAL) 0.8 10^3/uL (0.1-1.4); BASOPHILS % (MANUAL) 0 % (0-2); EOSINOPHILS % (MANUAL) 0 % (0-6); LYMPHOCYTES % (MANUAL) 13 % (13-45); MONOCYTES % (MANUAL) 8 % (3-13); NUCLEATED RED BLOOD CELLS 2 /100 WBC (0); SEGMENTED NEUTROPHILS % (MAN) 79 % (42-78); TOTAL CELLS COUNTED 100
[2019-02-20 05:31] LABS: ANISOCYTOSIS 3+; HOWELL-JOLLY BODIES PRESENT; PLATELET COMMENT INCREASED; POIKILOCYTOSIS 1+; POLYCHROMASIA 1+; SICKLE RED CELLS SLIGHT; TARGET CELLS 1+; TEAR DROP CELLS SLIGHT; TOXIC VACUOLATION PRESENT
[2019-02-20] MEDS: METHADONE HCL 10 MG TABLET PO SCH ×3 (06:48→22:35)
[2019-02-20] MEDS: HEPARIN SOD (PORCINE) 5,000 UNIT/ML 1 ML VIAL SUBCUT SCH ×3 (06:49→22:38)
[2019-02-20] MEDS: SENNOSIDES/DOCUSATE 8.6-50 MG 1 EACH TABLET PO PRN (09:03)
[2019-02-20] MEDS: DOCUSATE SODIUM 100 MG CAPSULE PO PRN (09:03)
[2019-02-20] MEDS: FOLIC ACID 1 MG TABLET PO SCH (09:04)
[2019-02-20] MEDS: HYDROXYUREA 500 MG CAPSULE PO SCH (09:04)
--- NOTE | 2019-02-20 09:08 | PDOC PROGRESS REPORT ---
Subjective Progress Note for:: 02/20/19 Subjective:: Patient is more comfortable this morning, doing a little bit better still complaining of abdominal pain Reason For Visit: SICKLE CELL PAIN CRISIS Physical Exam Vital Signs: Temp Pulse Resp BP Pulse Ox 98.6 F 89 14 139/92 H 100 02/20/19 00:00 02/20/19 07:00 02/20/19 00:00 02/20/19 00:00 02/20/19 00:00 Intake & Output 02/19/19 02/20/19 02/21/19 06:59 06:59 06:59 Intake Total 1000 3952 Output Total 2700 Balance 1000 1252 Weight 84.9 kg 85.1 kg General appearance: PRESENT: no acute distress, well-developed, well-nourished Head exam: PRESENT: atraumatic, normocephalic Eye exam: PRESENT: conjunctiva pink, EOMI, PERRLA. ABSENT: scleral icterus Ear exam: PRESENT: normal external ear exam Mouth exam: PRESENT: moist, tongue midline Neck exam: ABSENT: carotid bruit, JVD, lymphadenopathy, thyromegaly Respiratory exam: PRESENT: clear to auscultation anastasiya. ABSENT: rales, rhonchi, wheezes Cardiovascular exam: PRESENT: RRR. ABSENT: diastolic murmur, rubs, systolic murmur Pulses: PRESENT: normal dorsalis pedis pul Vascular exam: PRESENT: normal capillary refill GI/Abdominal exam: PRESENT: normal bowel sounds, soft. ABSENT: distended, guarding, mass, organolmegaly, rebound, tenderness Rectal exam: PRESENT: deferred Extremities exam: PRESENT: full ROM. ABSENT: calf tenderness, clubbing, pedal edema Neurological exam: PRESENT: alert, awake, oriented to person, oriented to place, oriented to time, oriented to situation, CN II-XII grossly intact. ABSENT: motor sensory deficit Psychiatric exam: PRESENT: appropriate affect, normal mood. ABSENT: homicidal ideation, suicidal ideation Skin exam: PRESENT: dry, intact, warm. ABSENT: cyanosis, rash Results Laboratory Results: 02/20/19 04:44 02/20/19 04:44 02/20/19 02/20/19 04:44 04:44 WBC 9.6 RBC 2.69 L Hgb 8.7 L Hct 25.3 L MCV 94 MCH 32.4 MCHC 34.5 RDW 23.2 H Plt Count 516 H Seg Neutrophils % Not Reportable Sodium 138.6 Potassium 3.8 Chloride 103 Carbon Dioxide 28 Anion Gap 8 BUN 5 L Creatinine 0.57 Est GFR ( Amer) > 60 Glucose 83 Calcium 8.9 Magnesium 1.9 Total Bilirubin 1.5 H AST 18 Alkaline Phosphatase 82 Total Protein 7.6 Albumin 3.8 Impressions: KUB X-Ray 02/19/19 04:46 IMPRESSION: Nonspecific nonobstructive bowel gas pattern. Assessment & Plan - Diagnosis (1) Sickle cell pain crisis Is this a current diagnosis for this admission?: Yes Plan: Continue with current pain regimen, I will schedule his Senokot S. 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 Qualified Code(s): D58.2 - Other hemoglobinopathies Is this a current diagnosis for this admission?: Yes Plan: Globin stable continue to monitor - Time Time Spent with patient: 35 or more minutes - Inpatient Certification Based on my medical assessment, after consideration of the patient's comorbidities, presenting symptoms, or acuity I expect that the services needed warrant INPATIENT care.: Yes I certify that my determination is in accordance with my understanding of Medicare's requirements for reasonable and necessary INPATIENT services [42 CFR 412.3e].: Yes Medical Necessity: Need For IV Fluids, Need for Pain Control, Risk of Complication if Not Cared For in Hospital
[2019-02-20] MEDS: SENNOSIDES/DOCUSATE 8.6-50 MG 1 EACH TABLET PO SCH ×2 (11:30→17:09)
--- NOTE | 2019-02-20 15:57 | PDOC PROGRESS REPORT ---
Subjective Progress Note for:: 02/20/19 Subjective:: Patient is resting in bed. ALFREDITO stockings are being applied. He is more awake and communicative today. He still has significant pain Reason For Visit: SICKLE CELL PAIN CRISIS Physical Exam Vital Signs: Temp Pulse Resp BP Pulse Ox 99.7 F 97 10 L 136/83 H 100 02/20/19 12:00 02/20/19 12:00 02/20/19 12:00 02/20/19 12:00 02/20/19 12:00 Intake & Output 02/19/19 02/20/19 02/21/19 06:59 06:59 06:59 Intake Total 1000 3952 360 Output Total 2700 750 Balance 1000 1252 -390 Weight 84.9 kg 85.1 kg General appearance: PRESENT: cooperative, mild distress, well-developed Head exam: PRESENT: atraumatic, normocephalic Eye exam: PRESENT: conjunctiva pale. ABSENT: scleral icterus Ear exam: PRESENT: normal external ear exam. ABSENT: bleeding, drainage Respiratory exam: PRESENT: clear to auscultation anastasiya, symmetrical, unlabored. ABSENT: rales, rhonchi, tachypnea, wheezes Cardiovascular exam: PRESENT: RRR, +S1, +S2. ABSENT: systolic murmur GI/Abdominal exam: PRESENT: diminished bowel sounds, soft, tenderness. ABSENT: distended Extremities exam: PRESENT: tenderness. ABSENT: joint swelling, pedal edema Musculoskeletal exam: PRESENT: normal inspection Neurological exam: PRESENT: alert, awake, oriented to person, oriented to place, oriented to time, oriented to situation, CN II-XII grossly intact Psychiatric exam: PRESENT: flat affect. ABSENT: agitated, anxious Focused psych exam: ABSENT: delusional, restlessness Results Laboratory Results: 02/20/19 04:44 02/20/19 04:44 02/20/19 02/20/19 04:44 04:44 WBC 9.6 RBC 2.69 L Hgb 8.7 L Hct 25.3 L MCV 94 MCH 32.4 MCHC 34.5 RDW 23.2 H Plt Count 516 H Seg Neutrophils % Not Reportable Sodium 138.6 Potassium 3.8 Chloride 103 Carbon Dioxide 28 Anion Gap 8 BUN 5 L Creatinine 0.57 Est GFR ( Amer) > 60 Glucose 83 Calcium 8.9 Magnesium 1.9 Total Bilirubin 1.5 H AST 18 Alkaline Phosphatase 82 Total Protein 7.6 Albumin 3.8 Impressions: KUB X-Ray 02/19/19 04:46 IMPRESSION: Nonspecific nonobstructive bowel gas pattern. Assessment and Plan - Diagnosis (1) Sickle cell pain crisis Is this a current diagnosis for this admission?: Yes Plan: 02/19/2019-the patient's reticulocyte count is significantly elevated (14). This is the highest I have seen it during the course of all his admissions over the last year. IV fluids and continue hydroxyurea. Dr. Medellin is consulting and will manage the patient's pain medications. I did discuss the case with Dr. Medellin. He has been making arrangements to have the patient seen at [facility] for possible exchange transfusion. 02/20/2019-continue current treatment plan. Continue IV fluids (2) Methadone dependence Is this a current diagnosis for this admission?: Yes Plan: 02/19/2019-continue pain management per Dr. Medellin 02/20/2019 continue same (3) Opiate dependence, continuous Is this a current diagnosis for this admission?: Yes Plan: 02/19/2019-continue pain management per Dr. Medellin 02/20/2019 -continue same - Time Time Spent with patient: Less than 15 minutes Medications reviewed and adjusted accordingly: Yes Anticipated discharge: Home
[2019-02-21 01:06] LABS: ANION GAP 7 (5-19); BLOOD UREA NITROGEN 4 mg/dL (7-20); CALCIUM 8.4 mg/dL (8.4-10.2); CARBON DIOXIDE 29 mmol/L (22-30); CHLORIDE 103 mmol/L (98-107); GLUCOSE 102 mg/dL (75-110); POTASSIUM 3.6 mmol/L (3.6-5.0)
[2019-02-21] MEDS: HYDROMORPHONE HCL INJ/PF 2 MG/ML AMPULE IV PRN ×9 (02:05→22:49)
[2019-02-21] MEDS: NORMAL SALINE 1000 ML 1,000 ML IV PRN ×3 (04:20→18:11)
[2019-02-21] MEDS: HEPARIN SOD (PORCINE) 5,000 UNIT/ML 1 ML VIAL SUBCUT SCH ×3 (06:08→22:30)
[2019-02-21] MEDS: DIPHENHYDRAMINE HCL 50 MG/ML VIAL IV PRN ×3 (06:15→22:50)
[2019-02-21] MEDS: METHADONE HCL 10 MG TABLET PO SCH ×3 (06:16→22:52)
[2019-02-21 06:45] LABS: HEMATOCRIT 22.4 % (37.9-51.0); MEAN CORPUSCULAR HEMOGLOBIN 31.9 pg (27.0-33.4); MEAN CORPUSCULAR HGB CONC 34.9 g/dL (32.0-36.0); MEAN CORPUSCULAR VOLUME 91 fl (80-97); PLATELET COUNT 420 10^3/uL (150-450); RED BLOOD COUNT 2.46 10^6/uL (4.35-5.55); RED CELL DISTRIBUTION WIDTH 22.1 % (11.5-14.0); WHITE BLOOD COUNT 7.8 10^3/uL (4.0-10.5)
[2019-02-21 07:12] LABS: HEMOGLOBIN 7.8 g/dL (13.5-17.0)
[2019-02-21 07:15] LABS: ABSOLUTE LYMPHOCYTES# (MANUAL) 1.6 10^3/uL (0.5-4.7); ABSOLUTE MONOCYTES # (MANUAL) 0.6 10^3/uL (0.1-1.4); BAND NEUTROPHILS % (MANUAL) 1 % (3-5); BASOPHILS % (MANUAL) 0 % (0-2); EOSINOPHILS % (MANUAL) 5 % (0-6); LYMPHOCYTES % (MANUAL) 21 % (13-45); MONOCYTES % (MANUAL) 8 % (3-13); SEGMENTED NEUTROPHILS % (MAN) 65 % (42-78); TOTAL CELLS COUNTED 100
[2019-02-21 07:17] LABS: ANISOCYTOSIS 3+; HYPOCHROMASIA 2+; PLATELET COMMENT ADEQUATE; POLYCHROMASIA 1+; SICKLE RED CELLS 1+; TARGET CELLS 1+; TEAR DROP CELLS 1+
[2019-02-21] MEDS ORDERED: DIPHENHYDRAMINE HCL 50 MG/ML VIAL IV ONE (09:45)
[2019-02-21] MEDS: FOLIC ACID 1 MG TABLET PO SCH (11:39)
[2019-02-21] MEDS: SENNOSIDES/DOCUSATE 8.6-50 MG 1 EACH TABLET PO SCH ×2 (11:39→18:05)
[2019-02-21] MEDS: HYDROXYUREA 500 MG CAPSULE PO SCH (11:40)
[2019-02-21] MEDS: DOCUSATE SODIUM 100 MG CAPSULE PO PRN (12:01)
--- NOTE | 2019-02-21 14:14 | PDOC PROGRESS REPORT ---
Subjective Progress Note for:: 02/21/19 Subjective:: No acute events overnight, Dilaudid was reduced to 3 mg patient felt like he was getting too drowsy. He also had Benadryl decreased but increase it back up because he gets a lot of pruritus. Reason For Visit: SICKLE CELL PAIN CRISIS Physical Exam Vital Signs: Temp Pulse Resp BP Pulse Ox 98.4 F 78 16 141/88 H 100 02/21/19 08:00 02/21/19 08:00 02/21/19 08:00 02/21/19 08:00 02/21/19 08:00 Intake & Output 02/20/19 02/21/19 02/22/19 06:59 06:59 05:59 Intake Total 3952 3360 1000 Output Total 2700 3400 Balance 1252 -40 1000 Weight 85.1 kg 82.9 kg General appearance: PRESENT: no acute distress, well-developed, well-nourished Head exam: PRESENT: atraumatic, normocephalic Eye exam: PRESENT: conjunctiva pink, EOMI, PERRLA. ABSENT: scleral icterus Ear exam: PRESENT: normal external ear exam Mouth exam: PRESENT: moist, tongue midline Neck exam: ABSENT: carotid bruit, JVD, lymphadenopathy, thyromegaly Respiratory exam: PRESENT: clear to auscultation anastasiya. ABSENT: rales, rhonchi, wheezes Cardiovascular exam: PRESENT: RRR. ABSENT: diastolic murmur, rubs, systolic murmur Pulses: PRESENT: normal dorsalis pedis pul Vascular exam: PRESENT: normal capillary refill GI/Abdominal exam: PRESENT: normal bowel sounds, soft. ABSENT: distended, guarding, mass, organolmegaly, rebound, tenderness Rectal exam: PRESENT: deferred Extremities exam: PRESENT: full ROM. ABSENT: calf tenderness, clubbing, pedal edema Neurological exam: PRESENT: alert, awake, oriented to person, oriented to place, oriented to time, oriented to situation, CN II-XII grossly intact. ABSENT: motor sensory deficit Psychiatric exam: PRESENT: appropriate affect, normal mood. ABSENT: homicidal ideation, suicidal ideation Skin exam: PRESENT: dry, intact, warm. ABSENT: cyanosis, rash Results Laboratory Results: 02/21/19 06:26 02/21/19 00:40 02/21/19 02/21/19 00:40 06:26 WBC 7.8 RBC 2.46 L Hgb 7.8 L Hct 22.4 L MCV 91 MCH 31.9 MCHC 34.9 RDW 22.1 H Plt Count 420 Seg Neutrophils % Not Reportable Sodium 139.4 Potassium 3.6 Chloride 103 Carbon Dioxide 29 Anion Gap 7 BUN 4 L Creatinine 0.52 Est GFR ( Amer) > 60 Glucose 102 Calcium 8.4 Impressions: KUB X-Ray 02/19/19 04:46 IMPRESSION: Nonspecific nonobstructive bowel gas pattern. Assessment & Plan - Diagnosis (1) Sickle cell pain crisis Is this a current diagnosis for this admission?: Yes Plan: Continue with current supportive care, I discussed his case with [facility] sickle cell program, they will see him as an outpatient, at present they do not recommend exchange transfusions acutely for this current presentation. But they do note that it may be beneficial as an outpatient to get on a transfusion protocol. However it also depends on his autoantibodies because he does have quite a few of those. If he has certain autoantibodies he cannot get these transfusion protocol. 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 anemia type: other hemoglobinopathy Qualified Code(s): D58.2 - Other hemoglobinopathies Is this a current diagnosis for this admission?: Yes Plan: Hemoglobin dropped to the 7 range if it drops down in the 6 range and will need to talk to him about transfusions - Time Time Spent with patient: 35 or more minutes - Inpatient Certification Based on my medical assessment, after consideration of the patient's comorbidities, presenting symptoms, or acuity I expect that the services needed warrant INPATIENT care.: Yes I certify that my determination is in accordance with my understanding of Medicare's requirements for reasonable and necessary INPATIENT services [42 CFR 412.3e].: Yes Medical Necessity: Need for Nebulizer Therapy and Monitoring of Response, Need for Pain Control, Risk of Complication if Not Cared For in Hospital
--- NOTE | 2019-02-21 14:15 | PDOC PROGRESS REPORT ---
Subjective Progress Note for:: 02/21/19 Subjective:: The patient is resting in bed. He reports increased abdominal pain. Sometimes even breathing causes discomfort. He states that the pain is bad enough that it makes him cry. He reports that there is pain even when he drinks liquids. He does have a multitude of juice servings and fruit on his bedside table. Reason For Visit: SICKLE CELL PAIN CRISIS Physical Exam Vital Signs: Temp Pulse Resp BP Pulse Ox 98.4 F 78 16 141/88 H 100 02/21/19 08:00 02/21/19 08:00 02/21/19 08:00 02/21/19 08:00 02/21/19 08:00 Intake & Output 02/20/19 02/21/19 02/22/19 06:59 06:59 05:59 Intake Total 3952 3360 1000 Output Total 2700 3400 Balance 1252 -40 1000 Weight 85.1 kg 82.9 kg General appearance: PRESENT: cooperative, mild distress, well-developed Head exam: PRESENT: atraumatic, normocephalic Eye exam: PRESENT: conjunctiva pale. ABSENT: scleral icterus Ear exam: PRESENT: normal external ear exam. ABSENT: bleeding, drainage Respiratory exam: PRESENT: chest wall tenderness - Even with pushing down on the stethoscope to auscultate the patient had discomfort., clear to auscultation anastasiya, symmetrical, unlabored. ABSENT: rales, rhonchi, tachypnea, wheezes Cardiovascular exam: PRESENT: RRR, +S1, +S2, systolic murmur, tachycardia - Borderline tachycardia. GI/Abdominal exam: PRESENT: distended - Slightly distended, hypoactive bowel sounds, soft, tenderness - Diffusely tender Rectal exam: PRESENT: deferred Extremities exam: PRESENT: tenderness. ABSENT: pedal edema Musculoskeletal exam: ABSENT: ambulatory - Patient states it is too painful to get out of bed just yet Neurological exam: PRESENT: alert, awake, oriented to person, oriented to place, oriented to time, oriented to situation, CN II-XII grossly intact Psychiatric exam: PRESENT: flat affect - His affect also reflects his pain. ABSENT: agitated, anxious Focused psych exam: ABSENT: delusional, restlessness Skin exam: PRESENT: dry, normal color, warm. ABSENT: rash Results Laboratory Results: 02/21/19 06:26 02/21/19 00:40 02/21/19 02/21/19 00:40 06:26 WBC 7.8 RBC 2.46 L Hgb 7.8 L Hct 22.4 L MCV 91 MCH 31.9 MCHC 34.9 RDW 22.1 H Plt Count 420 Seg Neutrophils % Not Reportable Sodium 139.4 Potassium 3.6 Chloride 103 Carbon Dioxide 29 Anion Gap 7 BUN 4 L Creatinine 0.52 Est GFR ( Amer) > 60 Glucose 102 Calcium 8.4 Impressions: KUB X-Ray 02/19/19 04:46 IMPRESSION: Nonspecific nonobstructive bowel gas pattern. Assessment and Plan - Diagnosis (1) Sickle cell pain crisis Is this a current diagnosis for this admission?: Yes Plan: 02/19/2019-the patient's reticulocyte count is significantly elevated (14). This is the highest I have seen it during the course of all his admissions over the last year. IV fluids and continue hydroxyurea. Dr. Medellin is consulting and will manage the patient's pain medications. I did discuss the case with Dr. Medellin. He has been making arrangements [facility]. 02/20/2019-continue current treatment plan. Continue IV fluids February 21, 2019-we discussed the nature of his abdominal pain. Drinking fluids should not cause pain. I guess it is possible if there is bowel ischemia but I would have expected him to be more symptomatic and passed bloody stools. We will try old school and I have ordered a Kpad heating pad that he will place over his abdomen intermittently to see if he gets relief. (2) Methadone dependence Is this a current diagnosis for this admission?: Yes Plan: 02/19/2019-continue pain management per Dr. Medellin 02/20/2019 continue same February 21, 2019-in Dr. Medellin's note it states that the patient reported the 3 mg dose of Dilaudid was making him sleepy. Instead of extending the frequency Dr. Medellin is ordered 2 mg every 2 hours. He continues the methadone. (3) Opiate dependence, continuous Is this a current diagnosis for this admission?: Yes Plan: 02/19/2019-continue pain management per Dr. Medellin 02/20/2019 -continue same February 21, 2019-please see above - Time Time Spent with patient: Less than 15 minutes Anticipated discharge: Home
[2019-02-22] MEDS: HYDROMORPHONE HCL INJ/PF 2 MG/ML AMPULE IV PRN ×11 (01:13→23:04)
[2019-02-22] MEDS: NORMAL SALINE 1000 ML 1,000 ML IV PRN ×5 (01:17→22:00)
[2019-02-22 06:29] LABS: HEMATOCRIT 21.7 % (37.9-51.0); MEAN CORPUSCULAR HGB CONC 34.7 g/dL (32.0-36.0); MEAN CORPUSCULAR VOLUME 89 fl (80-97); PLATELET COUNT 407 10^3/uL (150-450); RED BLOOD COUNT 2.42 10^6/uL (4.35-5.55); RED CELL DISTRIBUTION WIDTH 21.6 % (11.5-14.0); WHITE BLOOD COUNT 6.5 10^3/uL (4.0-10.5)
[2019-02-22 06:37] LABS: HEMOGLOBIN 7.5 g/dL (13.5-17.0)
[2019-02-22 06:43] LABS: BLOOD UREA NITROGEN 3 mg/dL (7-20); CALCIUM 8.3 mg/dL (8.4-10.2); CHLORIDE 103 mmol/L (98-107); GLUCOSE 101 mg/dL (75-110); POTASSIUM 3.5 mmol/L (3.6-5.0)
[2019-02-22 06:49] LABS: ANION GAP 6 (5-19); CARBON DIOXIDE 31 mmol/L (22-30)
[2019-02-22 07:13] LABS: ABSOLUTE LYMPHOCYTES# (MANUAL) 0.8 10^3/uL (0.5-4.7); ABSOLUTE MONOCYTES # (MANUAL) 0.5 10^3/uL (0.1-1.4); BASOPHILS % (MANUAL) 3 % (0-2); EOSINOPHILS % (MANUAL) 9 % (0-6); LYMPHOCYTES % (MANUAL) 12 % (13-45); MONOCYTES % (MANUAL) 7 % (3-13); NUCLEATED RED BLOOD CELLS 1 /100 WBC (0); SEGMENTED NEUTROPHILS % (MAN) 69 % (42-78); TOTAL CELLS COUNTED 100
[2019-02-22 07:15] LABS: ANISOCYTOSIS 3+; HYPOCHROMASIA 1+; POIKILOCYTOSIS SLIGHT; POLYCHROMASIA 1+; TARGET CELLS 1+; TEAR DROP CELLS SLIGHT
[2019-02-22 07:16] LABS: OVALOCYTES SLIGHT; PLATELET COMMENT ADEQUATE
[2019-02-22] MEDS: HEPARIN SOD (PORCINE) 5,000 UNIT/ML 1 ML VIAL SUBCUT SCH ×3 (07:36→22:45)
[2019-02-22] MEDS: METHADONE HCL 10 MG TABLET PO SCH ×3 (07:40→21:07)
[2019-02-22] MEDS: FOLIC ACID 1 MG TABLET PO SCH (09:39)
[2019-02-22] MEDS: SENNOSIDES/DOCUSATE 8.6-50 MG 1 EACH TABLET PO SCH ×2 (09:39→18:30)
[2019-02-22] MEDS: HYDROXYUREA 500 MG CAPSULE PO SCH (09:39)
--- NOTE | 2019-02-22 11:02 | PDOC PROGRESS REPORT ---
Subjective Progress Note for:: 02/22/19 Subjective:: The patient still has diffuse pain. When questioned if the K pad device was helpful or not he informed me this was not utilized. I did question the staff and evidently there are no K pad devices available at this time. Reason For Visit: SICKLE CELL PAIN CRISIS Physical Exam Vital Signs: Temp Pulse Resp BP Pulse Ox 97.5 F 62 18 133/96 H 100 02/22/19 08:40 02/22/19 08:40 02/22/19 08:40 02/22/19 08:40 02/22/19 08:40 Intake & Output 02/21/19 02/22/19 02/23/19 07:59 06:59 06:59 Intake Total 1000 Output Total Balance 1000 Weight General appearance: PRESENT: cooperative, mild distress, well-developed Head exam: PRESENT: atraumatic, normocephalic Eye exam: PRESENT: conjunctiva pale. ABSENT: scleral icterus Ear exam: PRESENT: normal external ear exam. ABSENT: bleeding, drainage Mouth exam: PRESENT: dry mucosa, tongue midline Respiratory exam: PRESENT: chest wall tenderness - front tender to pressure, clear to auscultation anastasiya, symmetrical, unlabored. ABSENT: rales, rhonchi, tachypnea, wheezes Cardiovascular exam: PRESENT: RRR, +S1, +S2, systolic murmur - 1/6. ABSENT: diastolic murmur GI/Abdominal exam: PRESENT: normal bowel sounds, soft, tenderness - Diffusely tender. ABSENT: distended Rectal exam: PRESENT: deferred Gentrourinary exam: ABSENT: indwelling catheter Extremities exam: ABSENT: joint swelling, pedal edema Musculoskeletal exam: PRESENT: normal inspection. ABSENT: deformity Neurological exam: PRESENT: awake, oriented to person, oriented to place, oriented to time, oriented to situation, CN II-XII grossly intact. ABSENT: alert - Still seems slightly lethargic. Psychiatric exam: PRESENT: flat affect. ABSENT: agitated, anxious Results Laboratory Results: 02/22/19 06:00 02/22/19 06:00 02/22/19 02/22/19 06:00 06:00 WBC 6.5 RBC 2.42 L Hgb 7.5 L Hct 21.7 L MCV 89 MCH 31.0 MCHC 34.7 RDW 21.6 H Plt Count 407 Seg Neutrophils % Not Reportable Sodium 139.6 Potassium 3.5 L Chloride 103 Carbon Dioxide 31 H Anion Gap 6 BUN 3 L Creatinine 0.50 L Est GFR ( Amer) > 60 Glucose 101 Calcium 8.3 L Impressions: KUB X-Ray 02/19/19 04:46 IMPRESSION: Nonspecific nonobstructive bowel gas pattern. Assessment and Plan - Diagnosis (1) Sickle cell pain crisis Is this a current diagnosis for this admission?: Yes Plan: 02/19/2019-the patient's reticulocyte count is significantly elevated (14). This is the highest I have seen it during the course of all his admissions over the last year. IV fluids and continue hydroxyurea. Dr. Medellin is consulting and will manage the patient's pain medications. I did discuss the case with Dr. Medellin. He has been making arrangements to have the patient seen at [facility] for possible exchange transfusion. 02/20/2019-continue current treatment plan. Continue IV fluids February 21, 2019-we discussed the nature of his abdominal pain. Drinking fluids should not cause pain. I guess it is possible if there is bowel ischemia but I would have expected him to be more symptomatic and passed bloody stools. We will try old school and I have ordered a Kpad heating pad that he will place over his abdomen intermittently to see if he gets relief. 02/22/2019-still in pain. We will try and obtain a K pad to see if it helps the discomfort across the abdomen. Medication management per Dr. Medellin (2) Methadone dependence Is this a current diagnosis for this admission?: Yes Plan: 02/19/2019-continue pain management per Dr. Medellin 02/20/2019 continue same February 21, 2019-in Dr. Medellin's note it states that the patient reported the 3 mg dose of Dilaudid was making him sleepy. Instead of extending the frequency Dr. Medellin is ordered 2 mg every 2 hours. He continues the methadone. 02/22/2019-as above (3) Opiate dependence, continuous Is this a current diagnosis for this admission?: Yes Plan: 02/19/2019-continue pain management per Dr. Medellin 02/20/2019 -continue same February 21, 2019-please see above 02/22/2019-as above (4) Abdominal pain Qualifiers: Abdominal location: generalized Qualified Code(s): R10.84 - Generalized abdominal pain Is this a current diagnosis for this admission?: Yes Plan: 02/22/2019-as noted above he has diffuse discomfort. He is tender to palpation in general. The pain is decreasing his appetite. (5) Decreased appetite Is this a current diagnosis for this admission?: Yes Plan: 02/22/2019-as noted above his appetite has been adversely affected. Yesterday he reported that even drinking apple juice causes an increase of pain. Water not so much. He has eaten very little. He had multiple servings of juice on his bedside table and when I asked him if his appetite improved as many of them work on he stated that they took them away because he was not able to drink them. Hopefully if we could find a warming pad it may reduce some of the discomfort. This may improve his appetite. - Time Time Spent with patient: Less than 15 minutes Medications reviewed and adjusted accordingly: Yes
[2019-02-22] MEDS: MAGNESIUM HYDROXIDE SUSP 30 ML UDCUP PO PRN (14:02)
[2019-02-23] MEDS: HYDROMORPHONE HCL INJ/PF 2 MG/ML AMPULE IV PRN ×9 (01:27→23:25)
[2019-02-23] MEDS: NORMAL SALINE 1000 ML 1,000 ML IV PRN ×4 (03:26→18:54)
[2019-02-23] MEDS: HEPARIN SOD (PORCINE) 5,000 UNIT/ML 1 ML VIAL SUBCUT SCH ×3 (05:25→21:01)
[2019-02-23] MEDS: METHADONE HCL 10 MG TABLET PO SCH ×3 (06:03→20:59)
--- NOTE | 2019-02-23 08:11 | PDOC PROGRESS REPORT ---
Subjective Progress Note for:: 02/23/19 Subjective:: Patient still with significant pain, but seems to be controlled on current regimen Reason For Visit: SICKLE CELL PAIN CRISIS Physical Exam Vital Signs: Temp Pulse Resp BP Pulse Ox 98.4 F 71 18 124/86 H 100 02/23/19 08:06 02/23/19 08:06 02/23/19 08:06 02/23/19 08:06 02/23/19 08:06 Intake & Output 02/22/19 02/23/19 02/24/19 06:59 06:59 06:59 Intake Total 4000 Output Total 2305 Balance 1695 Weight 82.3 kg General appearance: PRESENT: no acute distress, well-developed, well-nourished Head exam: PRESENT: atraumatic, normocephalic Eye exam: PRESENT: conjunctiva pink, EOMI, PERRLA. ABSENT: scleral icterus Ear exam: PRESENT: normal external ear exam Mouth exam: PRESENT: moist, tongue midline Neck exam: ABSENT: carotid bruit, JVD, lymphadenopathy, thyromegaly Respiratory exam: PRESENT: clear to auscultation anastasiya. ABSENT: rales, rhonchi, wheezes Cardiovascular exam: PRESENT: RRR. ABSENT: diastolic murmur, rubs, systolic murmur Pulses: PRESENT: normal dorsalis pedis pul Vascular exam: PRESENT: normal capillary refill GI/Abdominal exam: PRESENT: normal bowel sounds, soft. ABSENT: distended, guarding, mass, organolmegaly, rebound, tenderness Rectal exam: PRESENT: deferred Extremities exam: PRESENT: full ROM. ABSENT: calf tenderness, clubbing, pedal edema Neurological exam: PRESENT: alert, awake, oriented to person, oriented to place, oriented to time, oriented to situation, CN II-XII grossly intact. ABSENT: motor sensory deficit Psychiatric exam: PRESENT: appropriate affect, normal mood. ABSENT: homicidal ideation, suicidal ideation Skin exam: PRESENT: dry, intact, warm. ABSENT: cyanosis, rash Results Laboratory Results: 02/22/19 06:00 02/22/19 06:00 Impressions: KUB X-Ray 02/19/19 04:46 IMPRESSION: Nonspecific nonobstructive bowel gas pattern. Assessment & Plan - Diagnosis (1) Sickle cell pain crisis Is this a current diagnosis for this admission?: Yes Plan: Continue with current regimen, no changes today (2) Acute chest syndrome Is this a current diagnosis for this admission?: Yes Plan: Continue with oxygen and other supportive measures (3) Anemia Qualifiers: Anemia type: acquired or hereditary hemolytic anemia Hemolytic anemia type: other hemoglobinopathy Qualified Code(s): D58.2 - Other hemoglobinopathies Is this a current diagnosis for this admission?: Yes Plan: Hemoglobin stable - Time Time Spent with patient: 15-24 minutes
[2019-02-23] MEDS: DIPHENHYDRAMINE HCL 50 MG/ML VIAL IV PRN ×2 (08:23→23:28)
[2019-02-23] MEDS: HYDROXYUREA 500 MG CAPSULE PO SCH (09:40)
[2019-02-23] MEDS: SENNOSIDES/DOCUSATE 8.6-50 MG 1 EACH TABLET PO SCH ×2 (09:40→17:03)
[2019-02-23] MEDS: FOLIC ACID 1 MG TABLET PO SCH (09:40)
[2019-02-23] MEDS: DOCUSATE SODIUM 100 MG CAPSULE PO PRN (09:42)
[2019-02-23] MEDS ORDERED: BISACODYL 5 MG TABEC PO PRN (13:59)
--- NOTE | 2019-02-23 14:01 | PDOC PROGRESS REPORT ---
Subjective Progress Note for:: 02/23/19 Subjective:: The patient is still having pain. Additionally, nursing reports constipation. Reason For Visit: SICKLE CELL PAIN CRISIS Physical Exam Vital Signs: Temp Pulse Resp BP Pulse Ox 97.5 F 72 18 135/88 H 100 02/23/19 12:42 02/23/19 12:42 02/23/19 12:42 02/23/19 12:42 02/23/19 12:42 Intake & Output 02/22/19 02/23/19 02/24/19 06:59 06:59 06:59 Intake Total 4000 2000 Output Total 2305 800 Balance 1695 1200 Weight 82.3 kg General appearance: PRESENT: cooperative, mild distress, well-developed Head exam: PRESENT: atraumatic, normocephalic Eye exam: PRESENT: conjunctiva pale Ear exam: PRESENT: normal external ear exam. ABSENT: bleeding, drainage Respiratory exam: PRESENT: clear to auscultation anastasiya, symmetrical, unlabored. ABSENT: rales, rhonchi, tachypnea, wheezes Cardiovascular exam: PRESENT: RRR, +S1, +S2, systolic murmur - 1/6 GI/Abdominal exam: PRESENT: diminished bowel sounds, soft, tenderness - Diffuse tenderness over the abdomen. ABSENT: distended, guarding Rectal exam: PRESENT: deferred Gentrourinary exam: ABSENT: indwelling catheter Extremities exam: ABSENT: joint swelling, pedal edema Musculoskeletal exam: PRESENT: ambulatory - Body pain limits ambulation, normal inspection. ABSENT: deformity Neurological exam: PRESENT: alert, awake, oriented to person, oriented to place, oriented to time, oriented to situation, CN II-XII grossly intact Psychiatric exam: PRESENT: flat affect. ABSENT: agitated, anxious Focused psych exam: ABSENT: delusional, restlessness Results Laboratory Results: 02/22/19 06:00 02/22/19 06:00 Impressions: KUB X-Ray 02/19/19 04:46 IMPRESSION: Nonspecific nonobstructive bowel gas pattern. Assessment and Plan - Diagnosis (1) Sickle cell pain crisis Is this a current diagnosis for this admission?: Yes Plan: 02/19/2019-the patient's reticulocyte count is significantly elevated (14). This is the highest I have seen it during the course of all his admissions over the last year. IV fluids and continue hydroxyurea. Dr. Medellin is consulting and will manage the patient's pain medications. I did discuss the case with Dr. Medellin. He has been making arrangements to have the patient seen at [facility] for possible exchange transfusion. 02/20/2019-continue current treatment plan. Continue IV fluids February 21, 2019-we discussed the nature of his abdominal pain. Drinking fluids should not cause pain. I guess it is possible if there is bowel ischemia but I would have expected him to be more symptomatic and passed bloody stools. We will try old school and I have ordered a Kpad heating pad that he will place over his abdomen intermittently to see if he gets relief. 02/22/2019-still in pain. We will try and obtain a K pad to see if it helps the discomfort across the abdomen. Medication management per Dr. Medellin 02/23/2019-still with significant pain. K pad unavailable at this time. (2) Methadone dependence Is this a current diagnosis for this admission?: Yes Plan: 02/19/2019-continue pain management per Dr. Medellin 02/20/2019 continue same February 21, 2019-in Dr. Medellin's note it states that the patient reported the 3 mg dose of Dilaudid was making him sleepy. Instead of extending the frequency Dr. Medellin is ordered 2 mg every 2 hours. He continues the methadone. 02/22/2019-as above 02/23/2019-no change (3) Opiate dependence, continuous Is this a current diagnosis for this admission?: Yes Plan: 02/19/2019-continue pain management per Dr. Medellin 02/20/2019 -continue same February 21, 2019-please see above 02/22/2019-as above 02/23/2019-no change (4) Abdominal pain Qualifiers: Abdominal location: generalized Qualified Code(s): R10.84 - Generalized abdominal pain Is this a current diagnosis for this admission?: Yes Plan: 02/22/2019-as noted above he has diffuse discomfort. He is tender to palpation in general. The pain is decreasing his appetite. 02/23/2019-I wanted to try a K pad heating pad however none are available at this time. The patient has had limited bowel movements. Constipation could be contributing. He has declined significant intervention as yet. (5) Decreased appetite Is this a current diagnosis for this admission?: Yes Plan: 02/22/2019-as noted above his appetite has been adversely affected. Yesterday he reported that even drinking apple juice causes an increase of pain. Water not so much. He has eaten very little. He had multiple servings of juice on his bedside table and when I asked him if his appetite improved as many of them work on he stated that they took them away because he was not able to drink them. Hopefully if we could find a warming pad it may reduce some of the discomfort. This may improve his appetite. 02/22/2019-still with poor appetite. Pain and medication are the likely the 2 biggest contributors (6) Anemia Qualifiers: Anemia type: acquired or hereditary hemolytic anemia Hemolytic anemia type: other hemoglobinopathy Qualified Code(s): D58.2 - Other hemoglobinopathies Is this a current diagnosis for this admission?: Yes Plan: 02/23/2019-the patient's hemoglobin is down to 7.5. Per discussions with Dr. Medellin will hold transfusion unless his hemoglobin drops below 7. - Plan Summary Summary: 02/23/2019-ongoing pain management per hematology. Monitor anemia. If hemoglobin falls below 7 then will transfuse. Monitor for constipation. - Time Time Spent with patient: Less than 15 minutes Medications reviewed and adjusted accordingly: Yes Anticipated discharge: Home
[2019-02-24] MEDS: HYDROMORPHONE HCL INJ/PF 2 MG/ML AMPULE IV PRN ×10 (02:14→22:44)
[2019-02-24] MEDS: METHADONE HCL 10 MG TABLET PO SCH ×3 (05:20→22:44)
[2019-02-24] MEDS: NORMAL SALINE 1000 ML 1,000 ML IV PRN ×4 (05:21→20:40)
[2019-02-24 05:36] LABS: ANION GAP 6 (5-19); BLOOD UREA NITROGEN 2 mg/dL (7-20); CALCIUM 8.4 mg/dL (8.4-10.2); CARBON DIOXIDE 30 mmol/L (22-30); CHLORIDE 105 mmol/L (98-107); GLUCOSE 88 mg/dL (75-110); POTASSIUM 3.5 mmol/L (3.6-5.0)
[2019-02-24] MEDS: HEPARIN SOD (PORCINE) 5,000 UNIT/ML 1 ML VIAL SUBCUT SCH ×3 (05:36→21:51)
[2019-02-24 05:53] LABS: HEMATOCRIT 23.8 % (37.9-51.0); HEMOGLOBIN 8.5 g/dL (13.5-17.0); MEAN CORPUSCULAR HEMOGLOBIN 31.5 pg (27.0-33.4); MEAN CORPUSCULAR HGB CONC 35.8 g/dL (32.0-36.0); MEAN CORPUSCULAR VOLUME 88 fl (80-97); PLATELET COUNT 377 10^3/uL (150-450); RED CELL DISTRIBUTION WIDTH 23.2 % (11.5-14.0); WHITE BLOOD COUNT 5.8 10^3/uL (4.0-10.5)
--- NOTE | 2019-02-24 09:00 | PDOC PROGRESS REPORT ---
Subjective Progress Note for:: 02/24/19 Subjective:: Patient still complaining of abdominal pain with any movement. No other complaints. Reason For Visit: SICKLE CELL PAIN CRISIS Physical Exam Vital Signs: Temp Pulse Resp BP Pulse Ox 98.3 F 63 17 112/69 100 02/24/19 08:01 02/24/19 08:01 02/24/19 08:01 02/24/19 08:01 02/24/19 08:01 Intake & Output 02/23/19 02/24/19 02/25/19 06:59 06:59 06:59 Intake Total 4000 4000 Output Total 2305 2500 Balance 1695 1500 Weight 82.3 kg 80.7 kg General appearance: PRESENT: no acute distress Head exam: PRESENT: normocephalic Respiratory exam: PRESENT: unlabored Extremities exam: ABSENT: pedal edema Neurological exam: PRESENT: alert, awake Psychiatric exam: PRESENT: appropriate affect Skin exam: PRESENT: normal color Results Laboratory Results: 02/24/19 05:27 02/24/19 04:30 02/24/19 02/24/19 02/24/19 04:30 04:30 05:27 WBC Cancelled 5.8 RBC Cancelled 2.70 L Hgb Cancelled 8.5 L Hct Cancelled 23.8 L MCV Cancelled 88 MCH Cancelled 31.5 MCHC Cancelled 35.8 RDW Cancelled 23.2 H Plt Count Cancelled 377 Sodium 140.9 Potassium 3.5 L Chloride 105 Carbon Dioxide 30 Anion Gap 6 BUN 2 L Creatinine 0.46 L Est GFR ( Amer) > 60 Glucose 88 Calcium 8.4 Impressions: KUB X-Ray 02/19/19 04:46 IMPRESSION: Nonspecific nonobstructive bowel gas pattern. Assessment & Plan - Diagnosis (1) Sickle cell pain crisis Is this a current diagnosis for this admission?: Yes Plan: Continue current treatment. O2, Fluids, pain meds. - Time Time Spent with patient: Less than 15 minutes
[2019-02-24] MEDS: FOLIC ACID 1 MG TABLET PO SCH (09:29)
[2019-02-24] MEDS: HYDROXYUREA 500 MG CAPSULE PO SCH (09:29)
[2019-02-24] MEDS: SENNOSIDES/DOCUSATE 8.6-50 MG 1 EACH TABLET PO SCH ×3 (09:29→17:10)
[2019-02-24] MEDS: DOCUSATE SODIUM 100 MG CAPSULE PO PRN (09:32)
--- NOTE | 2019-02-24 12:42 | PDOC PROGRESS REPORT ---
Subjective Progress Note for:: 02/24/19 Subjective:: Patient seen in follow-up regarding acute pain episode. Patient still complaining of pain in his legs, arm muscles and abdomen. Patient denies any chest pain. Currently denies any shortness of breath. Admits to using his incentive spirometer. Patient denies fever chills nausea or vomiting. Reason For Visit: SICKLE CELL PAIN CRISIS Physical Exam Vital Signs: Temp Pulse Resp BP Pulse Ox 98.3 F 63 17 112/69 100 02/24/19 08:01 02/24/19 08:01 02/24/19 08:01 02/24/19 08:01 02/24/19 08:01 Intake & Output 02/23/19 02/24/19 02/25/19 06:59 06:59 06:59 Intake Total 4000 4000 983 Output Total 2305 2500 Balance 1695 1500 983 Weight 82.3 kg 80.7 kg General appearance: PRESENT: no acute distress, cooperative, thin. ABSENT: mild distress, obese Eye exam: PRESENT: EOMI Mouth exam: PRESENT: moist Neck exam: PRESENT: full ROM. ABSENT: JVD, tracheal deviation, tracheostomy Respiratory exam: PRESENT: crackles - Bibasilar lung bases, symmetrical, unlabored. ABSENT: accessory muscle use, rhonchi, wheezes Cardiovascular exam: PRESENT: RRR, +S1, +S2. ABSENT: tachycardia GI/Abdominal exam: PRESENT: normal bowel sounds, soft, tenderness. ABSENT: distended, firm, guarding, rebound, rigid Extremities exam: PRESENT: calf tenderness Results Laboratory Results: 02/24/19 05:27 02/24/19 04:30 02/24/19 02/24/19 02/24/19 04:30 04:30 05:27 WBC Cancelled 5.8 RBC Cancelled 2.70 L Hgb Cancelled 8.5 L Hct Cancelled 23.8 L MCV Cancelled 88 MCH Cancelled 31.5 MCHC Cancelled 35.8 RDW Cancelled 23.2 H Plt Count Cancelled 377 Sodium 140.9 Potassium 3.5 L Chloride 105 Carbon Dioxide 30 Anion Gap 6 BUN 2 L Creatinine 0.46 L Est GFR ( Amer) > 60 Glucose 88 Calcium 8.4 Impressions: KUB X-Ray 02/19/19 04:46 IMPRESSION: Nonspecific nonobstructive bowel gas pattern. Assessment and Plan - Diagnosis (1) Sickle cell pain crisis Is this a current diagnosis for this admission?: Yes Plan: Continue with IV fluids, oxygen supplementation and hydroxyurea Pain regimen being managed by oncology We will continue to monitor Patient given clear instructions on using incentive spirometer frequently at least every 30 minutes (2) Abdominal pain Qualifiers: Abdominal location: generalized Qualified Code(s): R10.84 - Generalized abdominal pain Is this a current diagnosis for this admission?: Yes Plan: Initial proper bowel regimen in case pain is being generated by constipation. (3) Atelectasis Is this a current diagnosis for this admission?: Yes Plan: Incentive spirometer (4) Methadone dependence Is this a current diagnosis for this admission?: Yes Plan: Continue patient's methadone (5) Opiate dependence, continuous Is this a current diagnosis for this admission?: Yes Plan: Pain regimen being managed by hematology/oncology Bowel regimen - Plan Summary Summary: 02/23/2019-ongoing pain management per hematology. Monitor anemia. If hemoglobin falls below 7 then will transfuse. Monitor for constipation. - Time Time Spent with patient: 25-34 minutes
[2019-02-24] MEDS ORDERED: POTASSIUM CHLORIDE 20 MEQ PACKET PO ONE (16:52)
[2019-02-24] MEDS ORDERED: POTASSIUM CHLORIDE 10 MEQ CAPSULE.ER PO ONE (18:00)
[2019-02-25] MEDS: HYDROMORPHONE HCL INJ/PF 2 MG/ML AMPULE IV PRN ×10 (01:07→23:51)
[2019-02-25] MEDS: NORMAL SALINE 1000 ML 1,000 ML IV PRN ×5 (01:08→22:08)
[2019-02-25] MEDS: METHADONE HCL 10 MG TABLET PO SCH ×3 (05:34→21:12)
[2019-02-25] MEDS: HEPARIN SOD (PORCINE) 5,000 UNIT/ML 1 ML VIAL SUBCUT SCH ×3 (05:35→21:11)
[2019-02-25 06:32] LABS: HEMATOCRIT 23.9 % (37.9-51.0); HEMOGLOBIN 8.4 g/dL (13.5-17.0); MEAN CORPUSCULAR HEMOGLOBIN 30.7 pg (27.0-33.4); MEAN CORPUSCULAR VOLUME 88 fl (80-97); PLATELET COUNT 407 10^3/uL (150-450); RED BLOOD COUNT 2.72 10^6/uL (4.35-5.55); RED CELL DISTRIBUTION WIDTH 23.6 % (11.5-14.0); WHITE BLOOD COUNT 5.6 10^3/uL (4.0-10.5)
--- NOTE | 2019-02-25 08:27 | PDOC PROGRESS REPORT ---
Subjective Progress Note for:: 02/25/19 Subjective:: Pain is getting better, still having some abdominal pain but I told him part of it is related to constipation, he did have a couple liquid bowel movements over the last couple days with milk of magnesia as well as MiraLAX. I told him he needs another good BM today. Continue with current pain regimen for another 24 hours. Reason For Visit: SICKLE CELL PAIN CRISIS Physical Exam Vital Signs: Temp Pulse Resp BP Pulse Ox 98.2 F 72 16 122/77 100 02/25/19 08:04 02/25/19 08:04 02/25/19 08:04 02/25/19 08:04 02/25/19 08:04 Intake & Output 02/24/19 02/25/19 02/26/19 06:59 06:59 06:59 Intake Total 4000 5703 Output Total 2500 4675 Balance 1500 1028 Weight 80.7 kg 81.3 kg General appearance: PRESENT: no acute distress, well-developed, well-nourished Head exam: PRESENT: atraumatic, normocephalic Eye exam: PRESENT: conjunctiva pink, EOMI, PERRLA. ABSENT: scleral icterus Ear exam: PRESENT: normal external ear exam Mouth exam: PRESENT: moist, tongue midline Neck exam: ABSENT: carotid bruit, JVD, lymphadenopathy, thyromegaly Respiratory exam: PRESENT: clear to auscultation anastasiya. ABSENT: rales, rhonchi, wheezes Cardiovascular exam: PRESENT: RRR. ABSENT: diastolic murmur, rubs, systolic murmur Pulses: PRESENT: normal dorsalis pedis pul Vascular exam: PRESENT: normal capillary refill GI/Abdominal exam: PRESENT: normal bowel sounds, soft. ABSENT: distended, guarding, mass, organolmegaly, rebound, tenderness Rectal exam: PRESENT: deferred Extremities exam: PRESENT: full ROM. ABSENT: calf tenderness, clubbing, pedal edema Neurological exam: PRESENT: alert, awake, oriented to person, oriented to place, oriented to time, oriented to situation, CN II-XII grossly intact. ABSENT: motor sensory deficit Psychiatric exam: PRESENT: appropriate affect, normal mood. ABSENT: homicidal ideation, suicidal ideation Skin exam: PRESENT: dry, intact, warm. ABSENT: cyanosis, rash Results Laboratory Results: 02/25/19 05:39 02/24/19 04:30 02/25/19 05:39 WBC 5.6 RBC 2.72 L Hgb 8.4 L Hct 23.9 L MCV 88 MCH 30.7 MCHC 35.0 RDW 23.6 H Plt Count 407 Impressions: KUB X-Ray 02/19/19 04:46 IMPRESSION: Nonspecific nonobstructive bowel gas pattern. Assessment & Plan - Diagnosis (1) Sickle cell pain crisis Is this a current diagnosis for this admission?: Yes Plan: Getting better, continue current pain regimen for another 24 hours, no changes in care today (2) Acute chest syndrome Is this a current diagnosis for this admission?: Yes Plan: We will begin patient as an outpatient to [facility]. He has an appointment next week tentatively. (3) Anemia Qualifiers: Anemia type: acquired or hereditary hemolytic anemia Hemolytic anemia type: other hemoglobinopathy Qualified Code(s): D58.2 - Other hemoglobinopathies Is this a current diagnosis for this admission?: Yes Plan: Hemoglobin stable - Time Time Spent with patient: 35 or more minutes - Inpatient Certification Based on my medical assessment, after consideration of the patient's comorbidities, presenting symptoms, or acuity I expect that the services needed warrant INPATIENT care.: Yes I certify that my determination is in accordance with my understanding of Medicare's requirements for reasonable and necessary INPATIENT services [42 CFR 412.3e].: Yes Medical Necessity: Need for Pain Control, Risk of Complication if Not Cared For in Hospital
[2019-02-25] MEDS: SENNOSIDES/DOCUSATE 8.6-50 MG 1 EACH TABLET PO SCH ×2 (09:36→17:16)
[2019-02-25] MEDS: MAGNESIUM HYDROXIDE SUSP 30 ML UDCUP PO PRN (09:41)
[2019-02-25] MEDS: HYDROXYUREA 500 MG CAPSULE PO SCH (09:41)
[2019-02-25] MEDS: DOCUSATE SODIUM 100 MG CAPSULE PO PRN (09:41)
[2019-02-25] MEDS: FOLIC ACID 1 MG TABLET PO SCH (09:41)
--- NOTE | 2019-02-25 15:38 | PDOC PROGRESS REPORT ---
Subjective Progress Note for:: 02/25/19 Subjective:: Patient still complaining of some abdominal pain. Acknowledges having some bowel movements in the past day and a half. States that her bowel movements have been a small quantity but that his abdominal pain is improved with each bowel movement. Patient still having some pain in his lower extremities as well. Reason For Visit: SICKLE CELL PAIN CRISIS Physical Exam Vital Signs: Temp Pulse Resp BP Pulse Ox 98.6 F 68 16 144/94 H 93 02/25/19 11:35 02/25/19 11:35 02/25/19 11:35 02/25/19 11:35 02/25/19 11:35 Intake & Output 02/24/19 02/25/19 02/26/19 06:59 06:59 06:59 Intake Total 4000 5703 1236 Output Total 2500 4675 1000 Balance 1500 1028 236 Weight 80.7 kg 81.3 kg General appearance: PRESENT: no acute distress, cooperative Head exam: PRESENT: normocephalic Eye exam: PRESENT: EOMI Mouth exam: PRESENT: moist Neck exam: ABSENT: JVD, tracheal deviation Respiratory exam: PRESENT: unlabored Cardiovascular exam: PRESENT: RRR, +S1, +S2 GI/Abdominal exam: PRESENT: normal bowel sounds, soft, tenderness. ABSENT: distended, firm, guarding, rebound, rigid Rectal exam: PRESENT: deferred Musculoskeletal exam: PRESENT: ambulatory Neurological exam: PRESENT: alert, awake, oriented to person, oriented to place, oriented to time, oriented to situation Results Laboratory Results: 02/25/19 05:39 02/24/19 04:30 02/25/19 05:39 WBC 5.6 RBC 2.72 L Hgb 8.4 L Hct 23.9 L MCV 88 MCH 30.7 MCHC 35.0 RDW 23.6 H Plt Count 407 Impressions: KUB X-Ray 02/19/19 04:46 IMPRESSION: Nonspecific nonobstructive bowel gas pattern. Assessment and Plan - Diagnosis (1) Sickle cell pain crisis Is this a current diagnosis for this admission?: Yes Plan: Continue with IV fluids, oxygen supplementation and hydroxyurea Pain regimen being managed by oncology Patient given clear instructions on using incentive spirometer frequently at [address] every 30 minutes (2) Abdominal pain Qualifiers: Abdominal location: generalized Qualified Code(s): R10.84 - Generalized abdominal pain Is this a current diagnosis for this admission?: Yes Plan: Initial proper bowel regimen in case pain is being generated by constipation. Constipation currently improving (3) Atelectasis Is this a current diagnosis for this admission?: Yes Plan: Incentive spirometer (4) Methadone dependence Is this a current diagnosis for this admission?: Yes Plan: Continue patient's methadone (5) Opiate dependence, continuous Is this a current diagnosis for this admission?: Yes - Plan Summary Summary: 02/23/2019-ongoing pain management per hematology. Monitor anemia. If hemoglobin falls below 7 then will transfuse. Monitor for constipation. - Time Time Spent with patient: 15-24 minutes
[2019-02-26] MEDS: HYDROMORPHONE HCL INJ/PF 2 MG/ML AMPULE IV PRN ×10 (02:00→22:54)
[2019-02-26] MEDS: NORMAL SALINE 1000 ML 1,000 ML IV PRN ×3 (04:11→22:57)
[2019-02-26] MEDS: HEPARIN SOD (PORCINE) 5,000 UNIT/ML 1 ML VIAL SUBCUT SCH ×3 (06:11→22:01)
[2019-02-26] MEDS: METHADONE HCL 10 MG TABLET PO SCH (06:50)
[2019-02-26] MEDS: HYDROXYUREA 500 MG CAPSULE PO SCH (10:22)
[2019-02-26] MEDS: SENNOSIDES/DOCUSATE 8.6-50 MG 1 EACH TABLET PO SCH ×2 (10:23→18:15)
[2019-02-26] MEDS: FOLIC ACID 1 MG TABLET PO SCH (10:23)
--- NOTE | 2019-02-26 13:42 | PDOC PROGRESS REPORT ---
Subjective Progress Note for:: 02/26/19 Subjective:: Patient had bowel movement yesterday and states that pain is improved. Reason For Visit: SICKLE CELL PAIN CRISIS Physical Exam Vital Signs: Temp Pulse Resp BP Pulse Ox 98.6 F 72 16 128/75 H 93 02/26/19 08:08 02/26/19 08:08 02/26/19 08:08 02/26/19 08:08 02/26/19 08:08 Intake & Output 02/25/19 02/26/19 02/27/19 06:59 06:59 06:59 Intake Total 5703 4806 1000 Output Total 4675 2650 Balance 1028 2156 1000 Weight 81.3 kg 82.2 kg General appearance: PRESENT: no acute distress, cooperative Eye exam: PRESENT: EOMI Respiratory exam: PRESENT: clear to auscultation anastasiya, unlabored. ABSENT: tachypnea, wheezes Cardiovascular exam: PRESENT: RRR, +S1, +S2. ABSENT: tachycardia GI/Abdominal exam: PRESENT: normal bowel sounds, soft, tenderness. ABSENT: guarding, rebound, rigid Rectal exam: PRESENT: deferred Musculoskeletal exam: PRESENT: ambulatory Neurological exam: PRESENT: alert, awake, oriented to person, oriented to place, oriented to time, oriented to situation Results Laboratory Results: 02/25/19 05:39 02/24/19 04:30 Impressions: KUB X-Ray 02/19/19 04:46 IMPRESSION: Nonspecific nonobstructive bowel gas pattern. Assessment and Plan - Diagnosis (1) Sickle cell pain crisis Is this a current diagnosis for this admission?: Yes Plan: Continue with IV fluids, oxygen supplementation and hydroxyurea Pain regimen being managed by oncology Patient given clear instructions on using incentive spirometer frequently at least every 30 minutes (2) Abdominal pain Qualifiers: Abdominal location: generalized Qualified Code(s): R10.84 - Generalized abdominal pain Is this a current diagnosis for this admission?: Yes Plan: Continue bowel regimen. Constipation currently improving (3) Atelectasis Is this a current diagnosis for this admission?: Yes Plan: Incentive spirometer (4) Methadone dependence Is this a current diagnosis for this admission?: Yes Plan: Continue patient's methadone (5) Opiate dependence, continuous Is this a current diagnosis for this admission?: Yes - Plan Summary Summary: 02/23/2019-ongoing pain management per hematology. Monitor anemia. If hemoglobin falls below 7 then will transfuse. Monitor for constipation. - Time Time Spent with patient: Less than 15 minutes
[2019-02-27] MEDS: HYDROMORPHONE HCL INJ/PF 2 MG/ML AMPULE IV PRN ×7 (01:43→16:08)
[2019-02-27] MEDS: NORMAL SALINE 1000 ML 1,000 ML IV PRN ×3 (03:51→13:51)
[2019-02-27] MEDS: HEPARIN SOD (PORCINE) 5,000 UNIT/ML 1 ML VIAL SUBCUT SCH ×2 (06:04→13:47)
[2019-02-27 06:50] LABS: ABSOLUTE RETICS # 0.273 10^6/uL (0.028-0.122); HEMATOCRIT 26.1 % (37.9-51.0); HEMOGLOBIN 8.7 g/dL (13.5-17.0); MEAN CORPUSCULAR HGB CONC 33.2 g/dL (32.0-36.0); MEAN CORPUSCULAR VOLUME 90 fl (80-97); PLATELET COUNT 383 10^3/uL (150-450); RED BLOOD COUNT 2.89 10^6/uL (4.35-5.55); RED CELL DISTRIBUTION WIDTH 25.3 % (11.5-14.0); RETICULOCYTE COUNT (AUTO) 9.46 % (0.66-2.85)
[2019-02-27 06:56] LABS: ALBUMIN 3.6 g/dL (3.5-5.0); ALKALINE PHOSPHATASE 76 U/L (38-126); ANION GAP 9 (5-19); ASPARTATE AMINO TRANSFERASE 31 U/L (17-59); BILIRUBIN,DIRECT 0.1 mg/dL (0.0-0.4); BILIRUBIN,TOTAL 1.6 mg/dL (0.2-1.3); BLOOD UREA NITROGEN 3 mg/dL (7-20); CALCIUM 8.8 mg/dL (8.4-10.2); CARBON DIOXIDE 28 mmol/L (22-30); CHLORIDE 106 mmol/L (98-107); GLUCOSE 139 mg/dL (75-110); POTASSIUM 3.6 mmol/L (3.6-5.0); TOTAL PROTEIN 7.3 g/dL (6.3-8.2)
[2019-02-27 07:16] LABS: ABSOLUTE LYMPHOCYTES# (MANUAL) 1.1 10^3/uL (0.5-4.7); ABSOLUTE MONOCYTES # (MANUAL) 1.3 10^3/uL (0.1-1.4); BAND NEUTROPHILS % (MANUAL) 1 % (3-5); BASOPHILS % (MANUAL) 0 % (0-2); EOSINOPHILS % (MANUAL) 6 % (0-6); LYMPHOCYTES % (MANUAL) 15 % (13-45); MONOCYTES % (MANUAL) 19 % (3-13); NUCLEATED RED BLOOD CELLS 3 /100 WBC (0); SEGMENTED NEUTROPHILS % (MAN) 59 % (42-78); TOTAL CELLS COUNTED 100
[2019-02-27 07:19] LABS: POLYCHROMASIA 1+; TOXIC GRANULATION SLIGHT
[2019-02-27 07:20] LABS: ANISOCYTOSIS 3+; HYPOCHROMASIA 1+; OVALOCYTES 1+; PLATELET COMMENT ADEQUATE; POIKILOCYTOSIS 1+; SICKLE RED CELLS SLIGHT; TARGET CELLS 1+
--- NOTE | 2019-02-27 08:54 | PDOC PROGRESS REPORT ---
Subjective Progress Note for:: 02/27/19 Subjective:: Doing better, seems ready for d/c today Reason For Visit: SICKLE CELL PAIN CRISIS Physical Exam Vital Signs: Temp Pulse Resp BP Pulse Ox 98.0 F 64 14 128/77 H 96 02/27/19 08:00 02/27/19 08:00 02/27/19 08:00 02/27/19 08:00 02/27/19 08:00 Intake & Output 02/26/19 02/27/19 02/28/19 06:59 06:59 06:59 Intake Total 4806 3837 900 Output Total 2650 3100 Balance 2156 737 900 Weight 82.2 kg 81.8 kg General appearance: PRESENT: no acute distress, well-developed, well-nourished Head exam: PRESENT: atraumatic, normocephalic Eye exam: PRESENT: conjunctiva pink, EOMI, PERRLA. ABSENT: scleral icterus Ear exam: PRESENT: normal external ear exam Mouth exam: PRESENT: moist, tongue midline Neck exam: ABSENT: carotid bruit, JVD, lymphadenopathy, thyromegaly Respiratory exam: PRESENT: clear to auscultation anastasiya. ABSENT: rales, rhonchi, wheezes Cardiovascular exam: PRESENT: RRR. ABSENT: diastolic murmur, rubs, systolic murmur Pulses: PRESENT: normal dorsalis pedis pul Vascular exam: PRESENT: normal capillary refill GI/Abdominal exam: PRESENT: normal bowel sounds, soft. ABSENT: distended, guarding, mass, organolmegaly, rebound, tenderness Rectal exam: PRESENT: deferred Extremities exam: PRESENT: full ROM. ABSENT: calf tenderness, clubbing, pedal edema Neurological exam: PRESENT: alert, awake, oriented to person, oriented to place, oriented to time, oriented to situation, CN II-XII grossly intact. ABSENT: motor sensory deficit Psychiatric exam: PRESENT: appropriate affect, normal mood. ABSENT: homicidal ideation, suicidal ideation Skin exam: PRESENT: dry, intact, warm. ABSENT: cyanosis, rash Results Laboratory Results: 02/27/19 06:15 02/27/19 06:15 02/27/19 02/27/19 06:15 06:15 WBC 7.0 RBC 2.89 L Hgb 8.7 L Hct 26.1 L MCV 90 MCH 30.0 MCHC 33.2 RDW 25.3 H Plt Count 383 Seg Neutrophils % Not Reportable Retic Count (auto) 9.46 H Sodium 142.6 Potassium 3.6 Chloride 106 Carbon Dioxide 28 Anion Gap 9 BUN 3 L Creatinine 0.49 L Est GFR ( Amer) > 60 Glucose 139 H Calcium 8.8 Total Bilirubin 1.6 H AST 31 Alkaline Phosphatase 76 Total Protein 7.3 Albumin 3.6 Impressions: KUB X-Ray 02/19/19 04:46 IMPRESSION: Nonspecific nonobstructive bowel gas pattern. 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
--- NOTE | 2019-02-27 10:38 | PDOC DISCHARGE SUMMARY ---
Impression - Admit/DC Date/PCP Admission Date/Primary Care Provider: 02/19/19 07:41 BETH STAPLETON MD Discharge Date: 02/27/19 - Discharge Diagnosis (1) Sickle cell pain crisis Is this a current diagnosis for this admission?: Yes (2) Abdominal pain Is this a current diagnosis for this admission?: Yes (3) Atelectasis Is this a current diagnosis for this admission?: Yes (4) Methadone dependence Is this a current diagnosis for this admission?: Yes (5) Opiate dependence, continuous Is this a current diagnosis for this admission?: Yes (6) Constipation Is this a current diagnosis for this admission?: Yes - Assessment Summary: Patient was admitted for recurrence of acute pain episodes from his sickle cell. This time patient also complained of abdominal pain. Patient noted that he was not having frequent bowel movements. Patient was started on IV pain medication, hydration and oxygen therapy. Patient was also given an incentive spirometer. Patient was seen by hematology who will work to set him up with [facility] for outpatient exchange transfusions given his prior history of acute chest syndrome. For this episode patient did not complain of chest pain or any significant dyspnea or cough production. Patient was given bowel regimen and his abdominal pain started to improve with subsequent bowel movements. Patient's pain has improved and patient now stable for discharge. - Additional Information Resuscitation Status: Full Code Discharge Activity: Activity As Tolerated Referrals: BETH STAPLETON MD [Primary Care Provider] - 02/27/19 3:15 pm (CANCELLED APPT) Prescriptions: Docusate Sodium [Colace 100 mg Capsule] 100 mg PO DAILY #30 cap Bisacodyl [Dulcolax 5 mg Tablet] 10 mg PO DAILYP PRN #15 tabec PRN Reason: Mag Hydrox/Al Hydrox/Simeth [Maalox Plus Susp 30 Udcup] 30 ml PO Q6HP PRN #240 ml PRN Reason: Polyethylene Glycol 3350 [Miralax Powder 17 gm/Packet] 17 gm PO DAILY 30 Days powd.pack Home Medications: Folic Acid [Folvite 1 mg Tablet] 1 mg PO DAILY 02/19/19 Hydroxyurea [Hydrea 500 mg Capsule] 1,500 mg PO DAILY 02/19/19 Ibuprofen [Motrin 600 mg Tablet] 600 mg PO Q6HP PRN 02/19/19 Methadone HCl [Dolophine HCl] 5 mg PO Q8 02/19/19 Oxycodone HCl [Oxy-Ir 5 mg Tablet] 10 mg PO Q4HP PRN 02/19/19 Sennosides/Docusate 8.6-50 mg [Senna Plus Tablet] 1 tab PO BIDP PRN 02/19/19 Bisacodyl [Dulcolax 5 mg Tablet] 10 mg PO DAILYP PRN #15 tabec 02/27/19 Docusate Sodium [Colace 100 mg Capsule] 100 mg PO DAILY #30 cap 02/27/19 Mag Hydrox/Al Hydrox/Simeth [Maalox Plus Susp 30 Udcup] 30 ml PO Q6HP PRN #240 ml 02/27/19 Polyethylene Glycol 3350 [Miralax Powder 17 gm/Packet] 17 gm PO DAILY 30 Days powd.pack 02/27/19 History of Present Illiness History of Present Illness: MARISA GARBER is a 38 year old male with a history of sickle cell anemia and multiple hospitalizations. Dr. Stapleton has been working with him and they are trying to arrange for exchange transfusions. He presents today with very severe pain and a markedly elevated reticulocyte count. He does hurt all over. He is not sure if the pain is localized to his chest and sometimes it is difficult to tell. Dr. Stapleton is consulting and will manage the patient's pain. Physical Exam Vital Signs: Temp Pulse Resp BP Pulse Ox 98.0 F 64 14 128/77 H 96 02/27/19 08:00 02/27/19 08:00 02/27/19 08:00 02/27/19 08:00 02/27/19 08:00 Intake & Output 02/26/19 02/27/19 02/28/19 06:59 06:59 06:59 Intake Total 4806 3837 900 Output Total 2650 3100 Balance 2156 737 900 Weight 82.2 kg 81.8 kg General appearance: PRESENT: no acute distress Head exam: PRESENT: normocephalic Eye exam: PRESENT: EOMI Mouth exam: PRESENT: moist Respiratory exam: PRESENT: symmetrical, unlabored, other - Mostly clear with mild dry rales in the bases likely from atelectasis. ABSENT: tachypnea GI/Abdominal exam: PRESENT: normal bowel sounds, soft, tenderness - Mildly tender. ABSENT: guarding, rebound, rigid Rectal exam: PRESENT: deferred Gentrourinary exam: ABSENT: ecchymosis Musculoskeletal exam: PRESENT: ambulatory Neurological exam: PRESENT: alert, awake, oriented to person, oriented to place, oriented to time, oriented to situation Psychiatric exam: ABSENT: agitated Results Laboratory Results: WBC 7.0 10^3/uL (4.0-10.5) 02/27/19 06:15 RBC 2.89 10^6/uL (4.35-5.55) L 02/27/19 06:15 Hgb 8.7 g/dL (13.5-17.0) L 02/27/19 06:15 Hct 26.1 % (37.9-51.0) L 02/27/19 06:15 MCV 90 fl (80-97) 02/27/19 06:15 MCH 30.0 pg (27.0-33.4) 02/27/19 06:15 MCHC 33.2 g/dL (32.0-36.0) 02/27/19 06:15 RDW 25.3 % (11.5-14.0) H 02/27/19 06:15 Plt Count 383 10^3/uL (150-450) 02/27/19 06:15 Lymph % (Auto) Not Reportable 02/27/19 06:15 [place] % (Auto) Not Reportable 02/27/19 06:15 Eos % (Auto) Not Reportable 02/27/19 06:15 Baso % (Auto) Not Reportable 02/27/19 06:15 Reticulocyte # 0.273 10^6/uL (0.028-0.122) H 02/27/19 06:15 Absolute Neuts (auto) Not Reportable 02/27/19 06:15 Absolute Lymphs (auto) Not Reportable 02/27/19 06:15 Absolute Monos (auto) Not Reportable 02/27/19 06:15 Absolute Eos (auto) Not Reportable 02/27/19 06:15 Absolute Basos (auto) Not Reportable 02/27/19 06:15 Total Counted 100 02/27/19 06:15 Seg Neutrophils % Not Reportable 02/27/19 06:15 Seg Neuts % (Manual) 59 % (42-78) 02/27/19 06:15 Band Neutrophils % 1 % (3-5) L 02/27/19 06:15 Lymphocytes % (Manual) 15 % (13-45) 02/27/19 06:15 Monocytes % (Manual) 19 % (3-13) H 02/27/19 06:15 Eosinophils % (Manual) 6 % (0-6) 02/27/19 06:15 Basophils % (Manual) 0 % (0-2) 02/27/19 06:15 Abs Neuts (Manual) 4.2 10^3/uL (1.7-8.2) 02/27/19 06:15 Abs Lymphs (Manual) 1.1 10^3/uL (0.5-4.7) 02/27/19 06:15 Abs Monocytes (Manual) 1.3 10^3/uL (0.1-1.4) 02/27/19 06:15 Absolute Eos (Manual) 0.4 10^3/uL (0.0-0.6) 02/27/19 06:15 Abs Basophils (Manual) 0.0 10^3/uL (0.0-0.2) 02/27/19 06:15 Nucleated RBCs 3 /100 WBC (0) 02/27/19 06:15 Toxic Granulation SLIGHT 02/27/19 06:15 Toxic Vacuolation PRESENT 02/20/19 04:44 Platelet Estimate Cancelled 02/24/19 04:30 Platelet Comment ADEQUATE 02/27/19 06:15 Polychromasia 1+ 02/27/19 06:15 Hypochromasia 1+ 02/27/19 06:15 Poikilocytosis 1+ 02/27/19 06:15 Anisocytosis 3+ 02/27/19 06:15 Sickle Cells SLIGHT 02/27/19 06:15 Target Cells 1+ 02/27/19 06:15 Tear Drop Cells SLIGHT 02/22/19 06:00 Ovalocytes 1+ 02/27/19 06:15 Mcdermott-Kappa Bodies PRESENT 02/20/19 04:44 Retic Count (auto) 9.46 % (0.66-2.85) H 02/27/19 06:15 Sodium 142.6 mmol/L (137-145) 02/27/19 06:15 Potassium 3.6 mmol/L (3.6-5.0) 02/27/19 06:15 Chloride 106 mmol/L (98-107) 02/27/19 06:15 Carbon Dioxide 28 mmol/L (22-30) 02/27/19 06:15 Anion Gap 9 (5-19) 02/27/19 06:15 BUN 3 mg/dL (7-20) L 02/27/19 06:15 Creatinine 0.49 mg/dL (0.52-1.25) L 02/27/19 06:15 Est GFR ( Amer) > 60 (>60) 02/27/19 06:15 Est GFR (MDRD) Non-Af > 60 (>60) 02/27/19 06:15 Glucose 139 mg/dL (75-110) H 02/27/19 06:15 Calcium 8.8 mg/dL (8.4-10.2) 02/27/19 06:15 Magnesium 1.9 mg/dL (1.6-2.3) 02/20/19 04:44 Total Bilirubin 1.6 mg/dL (0.2-1.3) H 02/27/19 06:15 Direct Bilirubin 0.1 mg/dL (0.0-0.4) 02/27/19 06:15 Neonat Total Bilirubin Not Reportable 02/27/19 06:15 Neonat Direct Bilirubin Not Reportable 02/27/19 06:15 Neonat Indirect Bili Not Reportable 02/27/19 06:15 AST 31 U/L (17-59) 02/27/19 06:15 ALT 14 U/L (<50) 02/27/19 06:15 Alkaline Phosphatase 76 U/L (38-126) 02/27/19 06:15 Lactate Dehydrogenase 299 U/L (120-246) H 02/26/19 17:38 Total Protein 7.3 g/dL (6.3-8.2) 02/27/19 06:15 Albumin 3.6 g/dL (3.5-5.0) 02/27/19 06:15 Urine Color YELLOW 02/19/19 05:36 Urine Appearance CLEAR 02/19/19 05:36 Urine pH 6.0 (5.0-9.0) 02/19/19 05:36 Ur Specific [place] 1.008 02/19/19 05:36 Urine Protein NEGATIVE mg/dL (NEGATIVE) 02/19/19 05:36 Urine Glucose (UA) NEGATIVE mg/dL (NEGATIVE) 02/19/19 05:36 Urine Ketones 20 mg/dL (NEGATIVE) H 02/19/19 05:36 Urine Blood NEGATIVE (NEGATIVE) 02/19/19 05:36 Urine Nitrite NEGATIVE (NEGATIVE) 02/19/19 05:36 Urine Bilirubin NEGATIVE (NEGATIVE) 02/19/19 05:36 Urine Urobilinogen NEGATIVE mg/dL (<2.0) 02/19/19 05:36 Ur Leukocyte Esterase NEGATIVE (NEGATIVE) 02/19/19 05:36 Urine WBC (Auto) 0 /HPF 02/19/19 05:36 Urine RBC (Auto) 0 /HPF 02/19/19 05:36 Urine Mucus (Auto) RARE /LPF 02/19/19 05:36 Urine Ascorbic Acid NEGATIVE (NEGATIVE) 02/19/19 05:36 Slides for Path Review Cancelled 02/24/19 04:30 Impressions: KUB X-Ray 02/19/19 04:46 IMPRESSION: Nonspecific nonobstructive bowel gas pattern. Stroke Is this a Stroke Patient?: No Acute Heart Failure - Is this a Heart Failure Patient?: No
[2019-02-27] MEDS: FOLIC ACID 1 MG TABLET PO SCH (11:05)
[2019-02-27] MEDS: SENNOSIDES/DOCUSATE 8.6-50 MG 1 EACH TABLET PO SCH ×2 (11:05→17:01)
[2019-02-27] MEDS: HYDROXYUREA 500 MG CAPSULE PO SCH (11:06)
[2019-02-27] MEDS: DOCUSATE SODIUM 100 MG CAPSULE PO PRN (11:16)
[2019-02-27 17:19] VITALS: BP 129/80
== END 2019-02-27 18:49 | disposition home or self-care (01) | DRG 812 ==
LOC: ER 21:13 → EH 02-19 07:41 → 4N 02-19 08:29
PROVIDERS: ADMIT Hospitalist; ATTEND Internal Medicine
DX: D57.01 Hb-SS disease with acute chest syndrome (principal); F11.20 Opioid dependence, uncomplicated; J98.11 Atelectasis; K59.00 Constipation, unspecified; Z90.49 Acquired absence of other specified parts of digestive tract; Z82.49 Family history of ischemic heart disease and other diseases of the circulatory system; Z88.0 Allergy status to penicillin; Z88.1 Allergy status to other antibiotic agents; Z88.5 Allergy status to narcotic agent; Z91.040 Latex allergy status; Z91.018 Allergy to other foods
CPT/HCPCS: 36415; 36591; 74018; 80048; 80053; 81001; 83615; 83690; 83735; 85025; 85027; 85045; 96361; 96374; 96375; 96376; 99284; 99285; J1170; J1200; J1642; J1644; J2765; J3490; J7030

== ENCOUNTER 2019-03-02 14:55 | Outpatient (CLI) | payer MEDICARE, MEDICAID ==
[2019-03-02] MEDS ORDERED: DIPHENHYDRAMINE HCL 50 MG/ML VIAL IV PRN (15:23)
[2019-03-02] MEDS ORDERED: NORMAL SALINE 1000 ML 1,000 ML IV PRN (15:23)
[2019-03-02] MEDS ORDERED: HYDROMORPHONE HCL INJ/PF 2 MG/ML AMPULE IV PRN (15:24)
[2019-03-02 15:45] VITALS: BP 118/76
== END 2019-03-02 16:56 | disposition home or self-care (01) ==
LOC: II 14:55 → 2N 14:58 → II 16:56
PROVIDERS: ATTEND Internal Medicine
PROC: 3E043GC Introduction of Other Therapeutic Substance into Central Vein, Percutaneous Approach (ICD-10-PCS; principal; 2019-03-02)
PROC: 3E0437Z Introduction of Electrolytic and Water Balance Substance into Central Vein, Percutaneous Approach (ICD-10-PCS; 2019-03-02)
DX: D57.1 Sickle-cell disease without crisis (principal); E86.0 Dehydration; R52 Pain, unspecified
CPT/HCPCS: J1200; J1170; J7030; J1642; 96361; 96374; 96375

== ENCOUNTER 2019-03-03 09:14 | Outpatient (CLI) | payer MEDICARE, MEDICAID ==
[2019-03-03] MEDS ORDERED: NORMAL SALINE 1000 ML 1,000 ML IV PRN (09:32)
[2019-03-03] MEDS ORDERED: DIPHENHYDRAMINE HCL 25 MG in NORMAL SALINE 50 ML IV PRN (09:35)
[2019-03-03] MEDS ORDERED: HYDROMORPHONE HCL INJ/PF 2 MG/ML AMPULE IV PRN (09:36)
[2019-03-03 09:37] VITALS: BP 125/75
== END 2019-03-03 10:58 | disposition home or self-care (01) ==
LOC: II 09:14 → 5TH 09:32 → II 10:58
PROVIDERS: ATTEND Internal Medicine
PROC: 3E043GC Introduction of Other Therapeutic Substance into Central Vein, Percutaneous Approach (ICD-10-PCS; principal; 2019-03-03)
PROC: 3E0437Z Introduction of Electrolytic and Water Balance Substance into Central Vein, Percutaneous Approach (ICD-10-PCS; 2019-03-03)
DX: D57.1 Sickle-cell disease without crisis (principal); E86.0 Dehydration; R52 Pain, unspecified
CPT/HCPCS: 96365; 96375; 96361; J1200; J1170; J1642

== ENCOUNTER 2019-03-04 09:49 | Outpatient (CLI) | payer MEDICARE, MEDICAID ==
[2019-03-04] MEDS ORDERED: NORMAL SALINE 1000 ML 1,000 ML IV PRN (10:08)
[2019-03-04] MEDS ORDERED: HYDROMORPHONE HCL INJ/PF 2 MG/ML AMPULE IV PRN (10:10)
[2019-03-04] MEDS ORDERED: DIPHENHYDRAMINE HCL 25 MG in NORMAL SALINE 50 ML IV PRN (10:12)
[2019-03-04 11:14] VITALS: BP 126/78
== END 2019-03-04 11:27 | disposition home or self-care (01) ==
LOC: II 09:49 → 5TH 09:51 → II 11:27
PROVIDERS: ATTEND Internal Medicine
PROC: 3E043GC Introduction of Other Therapeutic Substance into Central Vein, Percutaneous Approach (ICD-10-PCS; principal; 2019-03-04)
PROC: 3E0437Z Introduction of Electrolytic and Water Balance Substance into Central Vein, Percutaneous Approach (ICD-10-PCS; 2019-03-04)
DX: D57.1 Sickle-cell disease without crisis (principal); E86.0 Dehydration; R52 Pain, unspecified
CPT/HCPCS: 96365; 96375; 96361; J1200; J1170; J1642

== ENCOUNTER 2019-03-05 08:31 | Outpatient (CLI) | payer MEDICARE, MEDICAID ==
[2019-03-05] MEDS ORDERED: DIPHENHYDRAMINE HCL 25 MG in NORMAL SALINE 50 ML IV PRN (08:37)
[2019-03-05] MEDS ORDERED: HYDROMORPHONE HCL INJ/PF 2 MG/ML AMPULE IV PRN (08:39)
[2019-03-05 08:55] VITALS: BP 121/76
[2019-03-06] MEDS ORDERED: NORMAL SALINE 1000 ML @ AS DIRECTED IV PRN (08:37)
== END 2019-03-05 10:30 | disposition home or self-care (01) ==
LOC: II 08:31 → 5TH 08:35 → II 10:30
PROVIDERS: ATTEND Internal Medicine
PROC: 3E043GC Introduction of Other Therapeutic Substance into Central Vein, Percutaneous Approach (ICD-10-PCS; principal; 2019-03-05)
PROC: 3E0437Z Introduction of Electrolytic and Water Balance Substance into Central Vein, Percutaneous Approach (ICD-10-PCS; 2019-03-05)
DX: D57.1 Sickle-cell disease without crisis (principal); E86.0 Dehydration; R52 Pain, unspecified
CPT/HCPCS: 96365; 96375; 96361; J1200; J1170; J1642

== ENCOUNTER 2019-03-10 09:26 | Outpatient (CLI) | payer MEDICARE, MEDICAID ==
[2019-03-10] MEDS ORDERED: DIPHENHYDRAMINE HCL 25 MG in NORMAL SALINE 50 ML IV PRN (09:37)
[2019-03-10] MEDS ORDERED: NORMAL SALINE 1000 ML 1,000 ML IV PRN (09:37)
[2019-03-10] MEDS ORDERED: HYDROMORPHONE HCL INJ/PF 2 MG/ML AMPULE IV PRN (09:37)
== END 2019-03-10 11:13 | disposition home or self-care (01) ==
LOC: II 09:26 → 5TH 09:29 → II 11:13
PROVIDERS: ATTEND Internal Medicine
PROC: 3E043GC Introduction of Other Therapeutic Substance into Central Vein, Percutaneous Approach (ICD-10-PCS; principal; 2019-03-10)
PROC: 3E0437Z Introduction of Electrolytic and Water Balance Substance into Central Vein, Percutaneous Approach (ICD-10-PCS; 2019-03-10)
DX: D57.1 Sickle-cell disease without crisis (principal); E86.0 Dehydration; R52 Pain, unspecified
CPT/HCPCS: 96365; 96375; 96361; J1200; J1170

== ENCOUNTER 2019-03-11 09:10 | Outpatient (CLI) | payer MEDICARE, MEDICAID ==
[2019-03-11 09:21] VITALS: BP 125/72
[2019-03-11] MEDS ORDERED: DIPHENHYDRAMINE HCL 25 MG in NORMAL SALINE 50 ML IV PRN (09:21)
[2019-03-11] MEDS ORDERED: NORMAL SALINE 1000 ML 1,000 ML IV PRN (09:21)
[2019-03-11] MEDS ORDERED: HYDROMORPHONE HCL INJ/PF 2 MG/ML AMPULE IV PRN (09:22)
== END 2019-03-11 10:54 | disposition home or self-care (01) ==
LOC: II 09:10 → 5TH 09:12 → II 10:54
PROVIDERS: ATTEND Internal Medicine
PROC: 3E0437Z Introduction of Electrolytic and Water Balance Substance into Central Vein, Percutaneous Approach (ICD-10-PCS; principal; 2019-03-11)
PROC: 3E043GC Introduction of Other Therapeutic Substance into Central Vein, Percutaneous Approach (ICD-10-PCS; 2019-03-11)
DX: D57.1 Sickle-cell disease without crisis (principal); R52 Pain, unspecified; E86.0 Dehydration
CPT/HCPCS: 96365; 96375; 96361; J1200; J1170; J1642

== ENCOUNTER 2019-03-12 09:30 | Outpatient (CLI) | payer MEDICARE, MEDICAID ==
[~2019-03-12 09:30] MED LIST changes: -DIPHENHYDRAMINE HCL 25 MG in NORMAL SALINE 50 ML IV PRN; +DIPHENHYDRAMINE HCL 50 MG in NORMAL SALINE 50 ML IV PRN
[2019-03-12] MEDS ORDERED: DIPHENHYDRAMINE HCL 25 MG in NORMAL SALINE 50 ML IV PRN (09:44)
[2019-03-12] MEDS ORDERED: HYDROMORPHONE HCL INJ/PF 2 MG/ML AMPULE IV PRN (09:46)
[2019-03-12 11:25] VITALS: BP 120/81
== END 2019-03-12 11:27 | disposition home or self-care (01) ==
LOC: II 09:30 → 5TH 09:33 → II 11:27
PROVIDERS: ATTEND Internal Medicine
PROC: 3E043GC Introduction of Other Therapeutic Substance into Central Vein, Percutaneous Approach (ICD-10-PCS; principal; 2019-03-12)
PROC: 3E0437Z Introduction of Electrolytic and Water Balance Substance into Central Vein, Percutaneous Approach (ICD-10-PCS; 2019-03-12)
DX: D57.1 Sickle-cell disease without crisis (principal); E86.0 Dehydration; R52 Pain, unspecified
CPT/HCPCS: 96365; 96375; 96361; J1200; J1170; J1642

== ENCOUNTER 2019-03-13 09:25 | Outpatient (CLI) | payer MEDICARE, MEDICAID ==
[2019-03-13] MEDS ORDERED: NORMAL SALINE 1000 ML 1,000 ML IV PRN (09:26)
[2019-03-13] MEDS ORDERED: HYDROMORPHONE HCL INJ/PF 2 MG/ML AMPULE IV PRN (09:26)
[2019-03-13] MEDS ORDERED: DIPHENHYDRAMINE HCL 25 MG in NORMAL SALINE 50 ML IV PRN (09:29)
[2019-03-13 12:08] VITALS: BP 125/85
== END 2019-03-13 10:47 | disposition home or self-care (01) ==
LOC: II 09:25 → 5TH 09:27 → II 10:47
PROVIDERS: ATTEND Internal Medicine
PROC: 3E043GC Introduction of Other Therapeutic Substance into Central Vein, Percutaneous Approach (ICD-10-PCS; principal; 2019-03-13)
PROC: 3E0437Z Introduction of Electrolytic and Water Balance Substance into Central Vein, Percutaneous Approach (ICD-10-PCS; 2019-03-13)
DX: D57.1 Sickle-cell disease without crisis (principal); E86.0 Dehydration; R52 Pain, unspecified
CPT/HCPCS: 96365; 96375; 96361; J1200; J1170; J1642

== ENCOUNTER 2019-03-17 09:57 | Outpatient (CLI) | payer MEDICARE, MEDICAID ==
[2019-03-17] MEDS ORDERED: DIPHENHYDRAMINE HCL 25 MG in NORMAL SALINE 50 ML IV PRN (10:26)
[2019-03-17] MEDS ORDERED: NORMAL SALINE 1000 ML 1,000 ML IV PRN (10:27)
[2019-03-17] MEDS ORDERED: HYDROMORPHONE HCL INJ/PF 2 MG/ML AMPULE IV PRN (10:28)
== END 2019-03-17 12:00 | disposition home or self-care (01) ==
LOC: II 09:57 → 5TH 10:21 → II 12:00
PROVIDERS: ATTEND Internal Medicine
PROC: 3E0437Z Introduction of Electrolytic and Water Balance Substance into Central Vein, Percutaneous Approach (ICD-10-PCS; principal; 2019-03-17)
PROC: 3E043GC Introduction of Other Therapeutic Substance into Central Vein, Percutaneous Approach (ICD-10-PCS; 2019-03-17)
DX: D57.1 Sickle-cell disease without crisis (principal); E86.0 Dehydration; R52 Pain, unspecified
CPT/HCPCS: 96365; 96367; 96361; J1200; J1170; J1642

== ENCOUNTER 2019-03-18 09:57 | Outpatient (CLI) | payer MEDICARE, MEDICAID ==
[~2019-03-18 09:57] MED LIST changes: +DIPHENHYDRAMINE HCL 25 MG in NORMAL SALINE 50 ML IV PRN; -DIPHENHYDRAMINE HCL 50 MG in NORMAL SALINE 50 ML IV PRN; -NORMAL SALINE 1000 ML 1,000 ML IV PRN; +NORMAL SALINE 1000 ML @ AS DIRECTED IV PRN
[2019-03-18 10:13] VITALS: BP 136/93
== END 2019-03-18 11:42 | disposition home or self-care (01) ==
LOC: II 09:57 → 5TH 10:01 → II 11:42
PROVIDERS: ATTEND Internal Medicine
PROC: 3E0437Z Introduction of Electrolytic and Water Balance Substance into Central Vein, Percutaneous Approach (ICD-10-PCS; principal; 2019-03-18)
PROC: 3E043GC Introduction of Other Therapeutic Substance into Central Vein, Percutaneous Approach (ICD-10-PCS; 2019-03-18)
DX: D57.1 Sickle-cell disease without crisis (principal); E86.0 Dehydration; R52 Pain, unspecified
CPT/HCPCS: 96365; 96375; 96361; J1200; J1170; J1642

== ENCOUNTER 2019-03-20 10:06 | Outpatient (CLI) | payer MEDICARE, MEDICAID ==
[2019-03-20] MEDS ORDERED: DIPHENHYDRAMINE HCL 25 MG in NORMAL SALINE 50 ML IV PRN (10:20)
[2019-03-20] MEDS ORDERED: NORMAL SALINE 1000 ML 1,000 ML IV PRN (10:20)
[2019-03-20] MEDS ORDERED: HYDROMORPHONE HCL INJ/PF 2 MG/ML AMPULE IV PRN (10:22)
[2019-03-20 10:29] VITALS: BP 127/78
== END 2019-03-20 11:37 | disposition home or self-care (01) ==
LOC: 5TH 10:06 → II 10:06
PROVIDERS: ATTEND Internal Medicine
PROC: 3E043GC Introduction of Other Therapeutic Substance into Central Vein, Percutaneous Approach (ICD-10-PCS; principal; 2019-03-20)
PROC: 3E0437Z Introduction of Electrolytic and Water Balance Substance into Central Vein, Percutaneous Approach (ICD-10-PCS; 2019-03-20)
DX: D57.1 Sickle-cell disease without crisis (principal); E86.0 Dehydration; R52 Pain, unspecified
CPT/HCPCS: 96365; 96375; 96361; J1200; J1170; J1642

== ENCOUNTER 2019-03-24 10:30 | Outpatient (CLI) | payer MEDICARE, MEDICAID ==
[2019-03-24] MEDS ORDERED: DIPHENHYDRAMINE HCL 25 MG in NORMAL SALINE 50 ML IV PRN (10:38)
[2019-03-24] MEDS ORDERED: NORMAL SALINE 1000 ML 1,000 ML IV PRN (10:38)
[2019-03-24] MEDS ORDERED: HYDROMORPHONE HCL INJ/PF 2 MG/ML AMPULE IV PRN (10:39)
[2019-03-24 10:57] VITALS: BP 120/77
== END 2019-03-24 12:23 | disposition home or self-care (01) ==
LOC: II 10:30 → 5TH 10:32 → II 12:23
PROVIDERS: ATTEND Internal Medicine
PROC: 3E043GC Introduction of Other Therapeutic Substance into Central Vein, Percutaneous Approach (ICD-10-PCS; principal; 2019-03-24)
PROC: 3E0437Z Introduction of Electrolytic and Water Balance Substance into Central Vein, Percutaneous Approach (ICD-10-PCS; 2019-03-24)
DX: D57.1 Sickle-cell disease without crisis (principal); E86.0 Dehydration; R52 Pain, unspecified
CPT/HCPCS: 96365; 96375; 96361; J1200; J1170; J1642

== ENCOUNTER 2019-03-25 09:31 | Outpatient (CLI) | payer MEDICARE, MEDICAID ==
[2019-03-25 09:51] VITALS: BP 128/84
== END 2019-03-25 11:18 | disposition home or self-care (01) ==
LOC: II 09:31 → 5TH 09:34 → II 11:18
PROVIDERS: ATTEND Internal Medicine
DX: D57.1 Sickle-cell disease without crisis (principal); E86.0 Dehydration; R52 Pain, unspecified
CPT/HCPCS: 96365; 96375; 96361; J1200; J1170; J1642

== ENCOUNTER 2019-03-26 09:34 | Outpatient (CLI) | payer MEDICARE, MEDICAID ==
[~2019-03-26 09:34] MED LIST changes: -DIPHENHYDRAMINE HCL 25 MG in NORMAL SALINE 50 ML IV PRN; -HYDROMORPHONE HCL INJ/PF 2 MG/ML AMPULE IV PRN
[2019-03-26 09:54] VITALS: BP 128/77
[2019-03-26] MEDS ORDERED: HYDROMORPHONE HCL INJ/PF 2 MG/ML AMPULE IV PRN (09:56)
[2019-03-26] MEDS ORDERED: DIPHENHYDRAMINE HCL 25 MG in NORMAL SALINE 50 ML IV PRN (09:59)
== END 2019-03-26 11:15 | disposition home or self-care (01) ==
LOC: II 09:34 → 5TH 09:36 → II 11:15
PROVIDERS: ATTEND Internal Medicine
DX: D57.1 Sickle-cell disease without crisis (principal); E86.0 Dehydration; R52 Pain, unspecified
CPT/HCPCS: 96365; 96375; 96361; J1200; J1170; J1642

== ENCOUNTER 2019-03-27 11:15 | Outpatient (CLI) | payer MEDICARE, MEDICAID ==
[2019-03-27] MEDS ORDERED: NORMAL SALINE 1000 ML 1,000 ML IV PRN (11:18)
[2019-03-27] MEDS ORDERED: DIPHENHYDRAMINE HCL 25 MG in NORMAL SALINE 50 ML IV PRN (11:18)
[2019-03-27] MEDS ORDERED: HYDROMORPHONE HCL INJ/PF 2 MG/ML AMPULE IV PRN (11:19)
[2019-03-27 11:52] VITALS: BP 123/100
== END 2019-03-27 13:30 | disposition home or self-care (01) ==
LOC: II 11:15 → 5TH 11:17 → II 13:30
PROVIDERS: ATTEND Internal Medicine
DX: D57.1 Sickle-cell disease without crisis (principal); E86.0 Dehydration; R52 Pain, unspecified
CPT/HCPCS: 96367; 96375; 96361; J1200; J1170; J1642; 96365

== ENCOUNTER 2019-03-30 14:01 | Outpatient (CLI) | payer MEDICARE, MEDICAID ==
[2019-03-30] MEDS ORDERED: HYDROMORPHONE HCL INJ/PF 2 MG/ML AMPULE IV PRN (14:14)
[2019-03-30] MEDS ORDERED: DIPHENHYDRAMINE HCL 50 MG/ML VIAL IV PRN (14:29)
[2019-03-30] MEDS ORDERED: DIPHENHYDRAMINE HCL 50 MG/ML VIAL ONE (14:53)
[2019-03-30] MEDS ORDERED: HYDROMORPHONE HCL INJ/PF 2 MG/ML AMPULE ONE (14:54)
[2019-03-30 15:14] VITALS: BP 117/75
== END 2019-03-30 15:54 | disposition home or self-care (01) ==
LOC: ASU 14:01
PROVIDERS: ATTEND Internal Medicine
DX: D57.1 Sickle-cell disease without crisis (principal); E86.0 Dehydration; R52 Pain, unspecified
CPT/HCPCS: 96374; 96375; 96361; J1200; J1170; J1642; 96365

== ENCOUNTER 2019-03-31 11:27 | Outpatient (CLI) | payer MEDICARE, MEDICAID ==
[2019-03-31] MEDS ORDERED: DIPHENHYDRAMINE HCL 25 MG in NORMAL SALINE 50 ML IV PRN (11:39)
[2019-03-31] MEDS ORDERED: NORMAL SALINE 1000 ML 1,000 ML IV PRN (11:40)
[2019-03-31] MEDS ORDERED: HYDROMORPHONE HCL INJ/PF 2 MG/ML AMPULE IV PRN (11:42)
[2019-03-31 13:15] VITALS: BP 127/84
== END 2019-03-31 13:24 | disposition home or self-care (01) ==
LOC: II 11:27 → 5TH 11:29 → II 13:24
PROVIDERS: ATTEND Internal Medicine
DX: D57.1 Sickle-cell disease without crisis (principal); E86.0 Dehydration; R52 Pain, unspecified
CPT/HCPCS: 96365; 96375; 96360; J1200; J1170; J1642; 96361

== ENCOUNTER 2019-04-01 09:06 | Outpatient (CLI) | payer MEDICARE, MEDICAID ==
[2019-04-01] MEDS ORDERED: DIPHENHYDRAMINE HCL 25 MG in NORMAL SALINE 50 ML IV PRN (09:17)
[2019-04-01] MEDS ORDERED: NORMAL SALINE 1000 ML 1,000 ML IV PRN (09:18)
[2019-04-01 09:50] VITALS: BP 131/77
[2019-04-01] MEDS ORDERED: HYDROMORPHONE HCL INJ/PF 2 MG/ML AMPULE IV ONE (10:00)
== END 2019-04-01 11:00 | disposition home or self-care (01) ==
LOC: II 09:06 → 5TH 09:09 → II 11:00
PROVIDERS: ATTEND Internal Medicine
DX: D57.1 Sickle-cell disease without crisis (principal); E86.0 Dehydration; R52 Pain, unspecified
CPT/HCPCS: 96365; 96375; 96361; J1200; J1170; J1642

== ENCOUNTER 2019-04-02 09:33 | Outpatient (CLI) | payer MEDICARE, MEDICAID ==
[2019-04-02] MEDS ORDERED: DIPHENHYDRAMINE HCL 25 MG in NORMAL SALINE 50 ML IV PRN (09:39)
[2019-04-02] MEDS ORDERED: NORMAL SALINE 1000 ML 1,000 ML IV PRN (09:39)
[2019-04-02] MEDS ORDERED: HYDROMORPHONE HCL INJ/PF 2 MG/ML AMPULE IV PRN (09:41)
[2019-04-02 09:59] VITALS: BP 124/91
== END 2019-04-02 11:15 | disposition home or self-care (01) ==
LOC: II 09:33 → 5TH 09:37 → II 11:15
PROVIDERS: ATTEND Internal Medicine
DX: D57.1 Sickle-cell disease without crisis (principal); E86.0 Dehydration; R52 Pain, unspecified
CPT/HCPCS: 96367; 96375; 96360; J1200; J1170; J1642; 96361; 96365

== ENCOUNTER 2019-04-03 14:12 | Outpatient (CLI) | payer MEDICARE, MEDICAID ==
[2019-04-03] MEDS ORDERED: DIPHENHYDRAMINE HCL 25 MG in NORMAL SALINE 50 ML IV PRN (14:14)
[2019-04-03] MEDS ORDERED: NORMAL SALINE 1000 ML 1,000 ML IV PRN (14:15)
[2019-04-03] MEDS ORDERED: HYDROMORPHONE HCL INJ/PF 2 MG/ML AMPULE IV PRN (14:16)
[2019-04-03 15:15] VITALS: BP 133/79
== END 2019-04-03 16:19 | disposition home or self-care (01) ==
LOC: II 14:12 → 5TH 14:13 → II 16:19
PROVIDERS: ATTEND Internal Medicine
DX: D57.1 Sickle-cell disease without crisis (principal); E86.0 Dehydration; R52 Pain, unspecified
CPT/HCPCS: 96365; 96375; 96361; J1200; J1170; J1642

== ENCOUNTER 2019-04-05 08:06 | Emergency (ER) | payer MEDICARE, MEDICAID ==
[2019-04-05] MEDS ORDERED: NORMAL SALINE 1000 ML 2,000 ML IV ONE (13:42)
[2019-04-05] MEDS ORDERED: HYDROMORPHONE HCL INJ/PF 2 MG/ML AMPULE IV ONE (13:42)
[2019-04-05] MEDS ORDERED: DIPHENHYDRAMINE HCL 50 MG/ML VIAL IV ONE ×2 (13:42→16:42)
[2019-04-05 14:22] LABS: ABSOLUTE RETICS # 0.291 10^6/uL (0.028-0.122); HEMATOCRIT 28.5 % (37.9-51.0); HEMOGLOBIN 9.9 g/dL (13.5-17.0); MEAN CORPUSCULAR HEMOGLOBIN 32.4 pg (27.0-33.4); MEAN CORPUSCULAR HGB CONC 34.5 g/dL (32.0-36.0); MEAN CORPUSCULAR VOLUME 94 fl (80-97); PLATELET COUNT 262 10^3/uL (150-450); RED BLOOD COUNT 3.04 10^6/uL (4.35-5.55); RED CELL DISTRIBUTION WIDTH 25.7 % (11.5-14.0); RETICULOCYTE COUNT (AUTO) 9.55 % (0.66-2.85); WHITE BLOOD COUNT 7.5 10^3/uL (4.0-10.5)
[2019-04-05 14:33] LABS: ALBUMIN 4.3 g/dL (3.5-5.0); ALKALINE PHOSPHATASE 93 U/L (38-126); ANION GAP 12 (5-19); ASPARTATE AMINO TRANSFERASE 31 U/L (17-59); BILIRUBIN,DIRECT 0.1 mg/dL (0.0-0.4); BILIRUBIN,TOTAL 2.1 mg/dL (0.2-1.3); BLOOD UREA NITROGEN 7 mg/dL (7-20); CALCIUM 8.9 mg/dL (8.4-10.2); CARBON DIOXIDE 25 mmol/L (22-30); CHLORIDE 105 mmol/L (98-107); GLUCOSE 85 mg/dL (75-110); POTASSIUM 3.9 mmol/L (3.6-5.0); TOTAL PROTEIN 8.1 g/dL (6.3-8.2)
[2019-04-05 14:45] LABS: ABSOLUTE LYMPHOCYTES# (MANUAL) 2.6 10^3/uL (0.5-4.7); ABSOLUTE MONOCYTES # (MANUAL) 0.3 10^3/uL (0.1-1.4); BASOPHILS % (MANUAL) 0 % (0-2); EOSINOPHILS % (MANUAL) 0 % (0-6); LYMPHOCYTES % (MANUAL) 34 % (13-45); MONOCYTES % (MANUAL) 4 % (3-13); NUCLEATED RED BLOOD CELLS 3 /100 WBC (0); SEGMENTED NEUTROPHILS % (MAN) 62 % (42-78); TOTAL CELLS COUNTED 100
[2019-04-05 14:47] LABS: ANISOCYTOSIS 3+; POIKILOCYTOSIS 2+; POLYCHROMASIA SLIGHT; SICKLE RED CELLS 2+; TARGET CELLS SLIGHT
[2019-04-05 14:48] LABS: HOWELL-JOLLY BODIES PRESENT; PLATELET COMMENT ADEQUATE
[2019-04-05] MEDS ORDERED: HYDROMORPHONE HCL INJ/PF 2 MG/ML AMPULE IV PRN ×2 (14:52→16:42)
[2019-04-05] MEDS ORDERED: OXYCODONE HCL IR 5 MG TABLET PO PRN (17:14)
--- NOTE | 2019-04-05 18:18 | ER Document Report ---
HPI - HPI Time Seen by Provider: 04/05/19 12:51 Pain Level: 4 Notes: This is a 38-year-old male who is well-known to our facility presenting with all over body aches. Patient has sickle cell disease and states that he is having a sickle cell crisis. He denies any chest pain or shortness of breath. He reports his symptoms started 2 days ago. - CONSTITUTIONAL Constitutional: DENIES: Fever, Chills - REPRODUCTIVE Reproductive: DENIES: : - MUSCULOSKELETAL Musculoskeletal: REPORTS: Extremity pain Past Medical History - General Information source: Patient - Social History Smoking Status: Never Smoker Chew tobacco use (# tins/day): No Frequency of alcohol use: None Drug Abuse: None Family History: Hypertension Patient has suicidal ideation: No Patient has homicidal ideation: No - Past Medical History Cardiac Medical History: Denies: Hx Atrial Fibrillation, Hx Congestive Heart Failure, Hx Coronary Artery Disease Pulmonary Medical History: Reports: Hx Pneumonia Denies: Hx Asthma, Hx Bronchitis, Hx COPD, Hx Tuberculosis Neurological Medical History: Reports: Hx Seizures. Denies: Hx Migraine, Hx Parkinson's Disease Endocrine Medical History: Denies: Hx Diabetes Mellitus Type 1, Hx Diabetes Mellitus Type 2 Renal/ Medical History: Denies: Hx Peritoneal Dialysis GI Medical History: Denies: Hx Cirrhosis, Hx Hepatitis Musculoskeletal Medical History: Denies Hx Arthritis, Denies Hx Gout, Reports Hx Musculoskeletal Deformity - right hip avascular necrosis Skin Medical History: Denies Hx Eczema, Denies Hx Psoriasis Psychiatric Medical History: Reports: Hx Depression Infectious Medical History: Denies: Hx Hepatitis Past Surgical History: Reports: Hx Appendectomy, Hx Vascular Surgery - L port placement, Other - Port placement - Immunizations Immunizations up to date: Yes Hx Diphtheria, Pertussis, Tetanus Vaccination: Yes Hx Pneumococcal Vaccination: 02/20/11 Vertical Provider Document - CONSTITUTIONAL Notes: PHYSICAL EXAMINATION: GENERAL: Well-appearing, well-nourished and in no acute distress. HEAD: Atraumatic, normocephalic. EYES: Pupils equal round and reactive to light, extraocular movements intact, sclera anicteric, conjunctiva are normal. ENT: Nares patent, oropharynx clear without exudates. Moist mucous membranes. NECK: Normal range of motion, supple without lymphadenopathy LUNGS: Breath sounds clear to auscultation bilaterally and equal. No wheezes rales or rhonchi. HEART: Regular rate and rhythm without murmurs ABDOMEN: Soft, nontender, nondistended abdomen. No guarding, no rebound. No masses appreciated. Musculoskeletal: Normal range of motion, no pitting or edema. No cyanosis. NEUROLOGICAL: Cranial nerves grossly intact. Normal speech, normal gait. Normal sensory, motor exams PSYCH: Normal mood, normal affect. SKIN: Warm, Dry, normal turgor, no rashes or lesions noted. - INFECTION CONTROL TRAVEL OUTSIDE OF THE [place] IN LAST 30 DAYS: No Course - Re-evaluation Re-evalutation: Laboratory 04/05/19 04/05/19 14:05 14:05 WBC 7.5 RBC 3.04 L Hgb 9.9 L Hct 28.5 L MCV 94 MCH 32.4 MCHC 34.5 RDW 25.7 H Plt Count 262 Lymph % (Auto) Not Reportable [place] % (Auto) Not Reportable Eos % (Auto) Not Reportable Baso % (Auto) Not Reportable Reticulocyte # 0.291 H Absolute Neuts (auto) Not Reportable Absolute Lymphs (auto) Not Reportable Absolute Monos (auto) Not Reportable Absolute Eos (auto) Not Reportable Absolute Basos (auto) Not Reportable Total Counted 100 Seg Neutrophils % Not Reportable Seg Neuts % (Manual) 62 Lymphocytes % (Manual) 34 Monocytes % (Manual) 4 Eosinophils % (Manual) 0 Basophils % (Manual) 0 Abs Neuts (Manual) 4.7 Abs Lymphs (Manual) 2.6 Abs Monocytes (Manual) 0.3 Absolute Eos (Manual) 0.0 Abs Basophils (Manual) 0.0 Nucleated RBCs 3 Platelet Comment ADEQUATE Polychromasia SLIGHT Poikilocytosis 2+ Anisocytosis 3+ Sickle Cells 2+ Target Cells SLIGHT Mcdermott-Wesley Bodies PRESENT Retic Count (auto) 9.55 H Sodium 142.2 Potassium 3.9 Chloride 105 Carbon Dioxide 25 Anion Gap 12 BUN 7 Creatinine 0.63 Est GFR ( Amer) > 60 Est GFR (MDRD) Non-Af > 60 Glucose 85 Calcium 8.9 Total Bilirubin 2.1 H Direct Bilirubin 0.1 Neonat Total Bilirubin Not Reportable Neonat Direct Bilirubin Not Reportable Neonat Indirect Bili Not Reportable AST 31 ALT 19 Alkaline Phosphatase 93 Total Protein 8.1 Albumin 4.3 Patient appears well, nontoxic, denies chest pain. His reticulocyte count was elevated. Hemoglobin and hematocrit stable. Patient received several liters of fluids as well as IV pain medications. He reports pain much improved and ready for discharge home. ED return precautions discussed, patient verbalizes understanding and agreement with same. - Vital Signs Vital signs: Temp Pulse Resp BP Pulse Ox 98.7 F 72 16 122/69 95 04/05/19 13:33 04/05/19 13:33 04/05/19 13:33 04/05/19 13:33 04/05/19 13:33 - Laboratory Result Diagrams: 04/05/19 14:05 04/05/19 14:05 Laboratory results interpreted by me: 04/05/19 04/05/19 14:05 14:05 RBC 3.04 L Hgb 9.9 L Hct 28.5 L RDW 25.7 H Reticulocyte # 0.291 H Retic Count (auto) 9.55 H Total Bilirubin 2.1 H Discharge - Discharge Clinical Impression: Sickle cell anemia with crisis Condition: Stable Disposition: HOME, SELF-CARE Additional Instructions: Sickle Cell Crisis You have "sickle cell crisis." Sickle cell disease is caused by abnormal hemoglobin. This hemoglobin can deform red blood cells into a sickle shape. These abnormal blood cells can block blood vessels. This causes the pain of sickle cell crisis. Sickle cell crisis can occur any time. But attacks are more likely with acute infection, dehydration, or altitude change. A crisis usually causes pain in the legs, back, abdomen, and chest. Sometimes the pain may ease and return later. The usual treatment is oxygen, pain medication, IV fluids, and treatment of infection. Attacks may take a couple of days to resolve. Return if the pain becomes more severe, or if there are new symptoms. Referrals: BETH STAPLETON MD [Primary Care Provider] - Follow up as needed
[2019-04-05 18:51] VITALS: BP 134/94
== END 2019-04-05 18:54 | disposition home or self-care (01) ==
LOC: ER 08:06
DX: D57.00 Hb-SS disease with crisis, unspecified (principal); M79.10 Myalgia, unspecified site
CPT/HCPCS: 36591; 96376; 99284; 96374; 96375; 36415; 85025; 85045; 80053; J1200; J1170; J7030; J1642

== ENCOUNTER 2019-04-06 14:39 | Outpatient (CLI) | payer MEDICARE, MEDICAID ==
[2019-04-06] MEDS ORDERED: DIPHENHYDRAMINE HCL 25 MG in NORMAL SALINE 50 ML IV PRN (16:14)
[2019-04-06] MEDS ORDERED: NORMAL SALINE 1000 ML 1,000 ML IV PRN (16:15)
[2019-04-06] MEDS ORDERED: HYDROMORPHONE HCL INJ/PF 2 MG/ML AMPULE IV PRN (16:16)
[2019-04-06 17:58] VITALS: BP 147/90
== END 2019-04-06 17:45 | disposition home or self-care (01) ==
LOC: II 14:39 → 5 14:40 → II 17:45
PROVIDERS: ATTEND Internal Medicine
DX: D57.1 Sickle-cell disease without crisis (principal); E86.0 Dehydration; R52 Pain, unspecified
CPT/HCPCS: 96365; 96375; 96361; J1200; J1170; J7030; 96360

== ENCOUNTER 2019-04-08 08:47 | Outpatient (CLI) | payer MEDICARE, MEDICAID ==
[2019-04-08] MEDS ORDERED: NORMAL SALINE 1000 ML 1,000 ML IV PRN (08:52)
[2019-04-08] MEDS ORDERED: HYDROMORPHONE HCL INJ/PF 2 MG/ML AMPULE IV PRN (08:54)
[2019-04-08] MEDS ORDERED: DIPHENHYDRAMINE HCL 25 MG in NORMAL SALINE 50 ML IV PRN (08:55)
[2019-04-08 09:10] VITALS: BP 133/88
== END 2019-04-08 10:28 | disposition home or self-care (01) ==
LOC: II 08:47 → 5TH 08:53 → II 10:28
PROVIDERS: ATTEND Internal Medicine
DX: D57.1 Sickle-cell disease without crisis (principal); E86.0 Dehydration; R52 Pain, unspecified
CPT/HCPCS: 96365; 96375; 96361; J1200; J1170; J1642; 96360; 96367

== ENCOUNTER 2019-04-09 08:33 | Outpatient (CLI) | payer MEDICARE, MEDICAID ==
[2019-04-09] MEDS ORDERED: NORMAL SALINE 1000 ML 1,000 ML IV PRN (08:35)
[2019-04-09] MEDS ORDERED: DIPHENHYDRAMINE HCL 25 MG in NORMAL SALINE 50 ML IV PRN (08:37)
[2019-04-09 09:02] VITALS: BP 136/80
[2019-04-09] MEDS ORDERED: HYDROMORPHONE HCL INJ/PF 2 MG/ML AMPULE IV ONE (09:30)
== END 2019-04-09 10:11 | disposition home or self-care (01) ==
LOC: II 08:33 → 5TH 08:35 → II 10:11
PROVIDERS: ATTEND Internal Medicine
DX: D57.1 Sickle-cell disease without crisis (principal); E86.0 Dehydration; R52 Pain, unspecified
CPT/HCPCS: 96365; 96375; 96361; J1200; J1170; J1642

== ENCOUNTER 2019-04-10 09:43 | Outpatient (CLI) | payer MEDICARE, MEDICAID ==
[2019-04-10] MEDS ORDERED: NORMAL SALINE 1000 ML 1,000 ML IV PRN (10:00)
[2019-04-10] MEDS ORDERED: DIPHENHYDRAMINE HCL 25 MG in NORMAL SALINE 50 ML IV PRN (10:00)
[2019-04-10] MEDS ORDERED: HYDROMORPHONE HCL INJ/PF 2 MG/ML AMPULE IV PRN (10:01)
[2019-04-10 12:00] VITALS: BP 128/89
== END 2019-04-10 11:40 | disposition home or self-care (01) ==
LOC: II 09:43 → 5TH 09:45 → II 11:40
PROVIDERS: ATTEND Internal Medicine
DX: D57.1 Sickle-cell disease without crisis (principal); E86.0 Dehydration; R52 Pain, unspecified
CPT/HCPCS: 96365; 96375; 96361; J1200; J1170; J1642; 96367

== ENCOUNTER 2019-04-11 03:48 | Emergency (ER) | payer MEDICARE, MEDICAID ==
[2019-04-11] MEDS ORDERED: PHENYLEPHRINE HCL INJ/PF 10 MG/1 ML SDV IM ONE (05:18)
[2019-04-11] MEDS ORDERED: LIDOCAINE 1% INJ (10 MG/ML) 10 ML MDV INJ ONE (05:19)
[2019-04-11] MEDS ORDERED: HYDROMORPHONE HCL INJ/PF 2 MG/ML AMPULE IV ONE ×3 (05:35→08:08)
[2019-04-11] MEDS ORDERED: NORMAL SALINE 1000 ML 1,000 ML IV ONE (05:35)
[2019-04-11] MEDS ORDERED: DIPHENHYDRAMINE HCL 50 MG/ML VIAL IV ONE (05:36)
--- NOTE | 2019-04-11 05:42 | ER Document Report ---
Entered by FLORES ALCANTAR SCRIBE 04/11/19521 Acting as scribe for:LIBBY LARA IV, MD ED GI/ - General TRAVEL OUTSIDE OF THE [place] IN LAST 30 DAYS: No <LIBBY LARA IV - Last Filed: 04/11/19 05:50> <MARYANA MURRAY - Last Filed: 04/11/19 11:38> - General Chief Complaint: Penile Problem Stated Complaint: SICKLE CELL CRISIS Time Seen by Provider: 04/11/19 05:12 Primary Care Provider: BETH STAPLETON MD [Primary Care Provider] - Follow up as needed Notes: This 38-year-old male patient presents to the emergency department today with complaints of a priapism. Patient has had multiple priapisms in the past that have required phenylephrine injections here in this emergency department. Patient states the current priapism has been present for the last 2 to 3 hours. (LIBBY LARA IV) - HPI Notes: 04/11/19 05:37 Patient is refusing phenylephrine injections for his priapism. He states what usually works for him is antihistamines, IV fluids, and "the usual regimen." When the patient was asked to elaborate on what the usual regimen is he stated that hydromorphone is part of the regimen. (LIBBY LARA IV) - Related Data Allergies/Adverse Reactions: famotidine [From Pepcid] Allergy (Severe, Verified 04/05/19 08:31) Anaphylaxis ketorolac tromethamine [From Toradol] Allergy (Severe, Verified 04/05/19 08:31) levofloxacin [From Levaquin] Allergy (Severe, Verified 04/05/19 08:31) meperidine HCl [From Demerol] Allergy (Severe, Verified 04/05/19 08:31) morphine [Morphine] Allergy (Severe, Verified 04/05/19 08:31) tramadol HCl [From Ultram] Allergy (Severe, Verified 04/05/19 08:31) amoxicillin [Amoxicillin] Allergy (Verified 04/05/19 08:31) fentanyl [Fentanyl] Allergy (Verified 04/05/19 08:31) latex [Latex] Allergy (Verified 04/05/19 08:31) ondansetron HCl [From Zofran] Allergy (Verified 04/05/19 08:31) Pork/Porcine Containing Products Allergy (Verified 04/05/19 08:31) promethazine Allergy (Verified 04/05/19 08:31) Past Medical History - General Information source: Patient - Social History Smoking Status: Unknown if Ever Smoked Cigarette use (# per day): No Frequency of alcohol use: None Drug Abuse: None Lives with: Family Family History: Reviewed & Not Pertinent, Hypertension Patient has suicidal ideation: No Patient has homicidal ideation: No Pulmonary Medical History: Reports: Hx Pneumonia Neurological Medical History: Reports: Hx Seizures Musculoskeletal Medical History: Reports Hx Musculoskeletal Deformity - right hip avascular necrosis Psychiatric Medical History: Reports: Hx Depression Past Surgical History: Reports: Hx Appendectomy, Hx Vascular Surgery - L port placement, Other - Port placement - Immunizations Immunizations up to date: Yes Hx Diphtheria, Pertussis, Tetanus Vaccination: Yes Hx Pneumococcal Vaccination: 02/20/11 <LIBBY LARA IV - Last Filed: 04/11/19 05:50> Review of Systems - Review of Systems Constitutional: No symptoms reported EENT: No symptoms reported Cardiovascular: No symptoms reported Respiratory: No symptoms reported Gastrointestinal: No symptoms reported Genitourinary: No symptoms reported Male Genitourinary: See HPI, Other Musculoskeletal: No symptoms reported Skin: No symptoms reported Hematologic/Lymphatic: No symptoms reported Neurological/Psychological: No symptoms reported -: Yes All other systems reviewed and negative <LIBBY LARA IV - Last Filed: 04/11/19 05:50> Physical Exam <LIBBY LARA IV - Last Filed: 04/11/19 05:50> - Vital signs Vitals: Temp Pulse Resp BP Pulse Ox 98.1 F 84 16 147/92 H 97 04/11/19 03:54 04/11/19 03:54 04/11/19 03:54 04/11/19 03:54 04/11/19 03:54 - Notes Notes: PHYSICAL EXAMINATION: GENERAL: Well-appearing, well-nourished and in no acute distress. HEAD: Atraumatic, normocephalic. EYES: Pupils equal round and reactive to light, extraocular movements intact, sclera anicteric, conjunctiva are normal. ENT: nares patent, oropharynx clear without exudates. Moist mucous membranes. NECK: Normal range of motion, supple without lymphadenopathy LUNGS: Breath sounds clear to auscultation bilaterally and equal. No wheezes rales or rhonchi. HEART: Regular rate and rhythm without murmurs ABDOMEN: Soft, nontender, normoactive bowel sounds. No guarding, no rebound. No masses appreciated. : Patient appears to have some tumescence present at the time of the initial exam. EXTREMITIES: Normal range of motion, no pitting or edema. No cyanosis. NEUROLOGICAL: No focal neurological deficits. Moves all extremities spontaneously and on command. PSYCH: Normal mood, normal affect. SKIN: Warm, Dry, normal turgor, no rashes or lesions noted. (LIBBY LARA IV) Course - Transfer of Care Care transferred to following provider: Dr. Murray at 0600 <LIBBY LARA IV - Last Filed: 04/11/19 05:50> - Laboratory Result Diagrams: 04/11/19 06:00 04/11/19 06:00 <MARYANA MURRAY - Last Filed: 04/11/19 11:38> - Vital Signs Vital signs: Temp Pulse Resp BP Pulse Ox 98.0 F 80 16 121/76 95 04/11/19 10:19 04/11/19 10:19 04/11/19 10:19 04/11/19 10:19 04/11/19 10:19 - Laboratory Laboratory results interpreted by me: 04/11/19 04/11/19 06:00 06:00 RBC 2.86 L Hgb 9.4 L Hct 27.2 L RDW 23.5 H Reticulocyte # 0.262 H Retic Count (auto) 9.15 H Potassium 3.5 L Total Bilirubin 1.7 H Discharge <LIBBY LARA IV - Last Filed: 04/11/19 05:50> <MARYANA MURRAY - Last Filed: 04/11/19 11:38> - Discharge Clinical Impression: Priapism due to sickle cell disease, Joint pain Condition: Fair Disposition: HOME, SELF-CARE Referrals: BETH STAPLETON MD [Primary Care Provider] - Follow up as needed (Please call his office today to let him know you were seen in the emergency department for pain crisis breakthrough) I personally performed the services described in the documentation, reviewed and edited the documentation which was dictated to the scribe in my presence, and it accurately records my words and actions.
[2019-04-11 06:37] LABS: ABSOLUTE RETICS # 0.262 10^6/uL (0.028-0.122); HEMATOCRIT 27.2 % (37.9-51.0); HEMOGLOBIN 9.4 g/dL (13.5-17.0); MEAN CORPUSCULAR HEMOGLOBIN 32.9 pg (27.0-33.4); MEAN CORPUSCULAR HGB CONC 34.6 g/dL (32.0-36.0); MEAN CORPUSCULAR VOLUME 95 fl (80-97); PLATELET COUNT 338 10^3/uL (150-450); RED BLOOD COUNT 2.86 10^6/uL (4.35-5.55); RED CELL DISTRIBUTION WIDTH 23.5 % (11.5-14.0); RETICULOCYTE COUNT (AUTO) 9.15 % (0.66-2.85); WHITE BLOOD COUNT 9.6 10^3/uL (4.0-10.5)
[2019-04-11 06:47] LABS: ALBUMIN 4.2 g/dL (3.5-5.0); ALKALINE PHOSPHATASE 112 U/L (38-126); ANION GAP 7 (5-19); ASPARTATE AMINO TRANSFERASE 28 U/L (17-59); BILIRUBIN,TOTAL 1.7 mg/dL (0.2-1.3); BLOOD UREA NITROGEN 10 mg/dL (7-20); CALCIUM 8.5 mg/dL (8.4-10.2); CARBON DIOXIDE 29 mmol/L (22-30); CHLORIDE 106 mmol/L (98-107); GLUCOSE 97 mg/dL (75-110); POTASSIUM 3.5 mmol/L (3.6-5.0); TOTAL PROTEIN 7.9 g/dL (6.3-8.2)
[2019-04-11 07:39] LABS: ABSOLUTE LYMPHOCYTES# (MANUAL) 3.1 10^3/uL (0.5-4.7); ABSOLUTE MONOCYTES # (MANUAL) 0.7 10^3/uL (0.1-1.4); ANISOCYTOSIS 3+; BASOPHILS % (MANUAL) 0 % (0-2); EOSINOPHILS % (MANUAL) 0 % (0-6); LYMPHOCYTES % (MANUAL) 26 % (13-45); MONOCYTES % (MANUAL) 7 % (3-13); NUCLEATED RED BLOOD CELLS 6 /100 WBC (0); POIKILOCYTOSIS 2+; SEGMENTED NEUTROPHILS % (MAN) 61 % (42-78); TOTAL CELLS COUNTED 100
[2019-04-11 07:40] LABS: PLATELET COMMENT ADEQUATE; POLYCHROMASIA 1+; SICKLE RED CELLS 1+
[2019-04-11 12:03] VITALS: BP 125/85
== END 2019-04-11 12:03 | disposition home or self-care (01) ==
LOC: ER 03:48
DX: D57.80 Other sickle-cell disorders without crisis (principal); N48.32 Priapism due to disease classified elsewhere; Z88.6 Allergy status to analgesic agent; Z88.0 Allergy status to penicillin
CPT/HCPCS: 36591; 96376; 99284; 96361; 96374; 96375; 36415; 85025; 85045; 80053; J1200; J1170; J7030; J1642

== ENCOUNTER 2019-04-13 16:05 | Outpatient (CLI) | payer MEDICARE, MEDICAID ==
[2019-04-13] MEDS ORDERED: DIPHENHYDRAMINE HCL 50 MG/ML VIAL IV PRN (17:22)
[2019-04-13] MEDS ORDERED: HYDROMORPHONE HCL INJ/PF 2 MG/ML AMPULE IV PRN (17:23)
[2019-04-13] MEDS ORDERED: NORMAL SALINE 1000 ML 1,000 ML IV PRN (17:25)
== END 2019-04-13 20:35 | disposition home or self-care (01) ==
LOC: II 16:05 → 4S 16:08 → II 20:35
PROVIDERS: ATTEND Internal Medicine
DX: D57.1 Sickle-cell disease without crisis (principal); E86.0 Dehydration; R52 Pain, unspecified
CPT/HCPCS: 96374; 96375; 96361; J1200; J1170; J7030; J1642

== ENCOUNTER 2019-04-16 14:30 | Outpatient (CLI) | payer MEDICARE, MEDICAID ==
[2019-04-16] MEDS ORDERED: NORMAL SALINE 1000 ML @ AS DIRECTED IV PRN (14:40)
[2019-04-16] MEDS ORDERED: HYDROMORPHONE HCL INJ/PF 2 MG/ML AMPULE IV PRN (14:40)
[2019-04-16] MEDS ORDERED: DIPHENHYDRAMINE HCL 50 MG in NORMAL SALINE 25 ML IV PRN (14:42)
[2019-04-16] MEDS: HYDROMORPHONE HCL INJ/PF 2 MG/ML AMPULE IV PRN ×2 (14:51→15:22)
[2019-04-16] MEDS ORDERED: DIPHENHYDRAMINE HCL 25 MG in NORMAL SALINE 50 ML IV PRN (14:54)
[2019-04-16 16:21] VITALS: BP 135/85
== END 2019-04-16 16:21 | disposition home or self-care (01) ==
LOC: II 14:30 → 5TH 14:33 → II 16:21
PROVIDERS: ATTEND Internal Medicine
DX: D57.1 Sickle-cell disease without crisis (principal); E86.0 Dehydration; R52 Pain, unspecified
CPT/HCPCS: 96365; 96375; 96361; J1200; J1170; J1642

== ENCOUNTER 2019-04-17 08:53 | Outpatient (CLI) | payer MEDICARE, MEDICAID ==
[~2019-04-17 08:53] MED LIST changes: +DIPHENHYDRAMINE HCL 25 MG in NORMAL SALINE 50 ML IV PRN; +HYDROMORPHONE HCL INJ/PF 2 MG/ML AMPULE IV PRN; +NORMAL SALINE 1000 ML 1,000 ML IV PRN; -NORMAL SALINE 1000 ML @ AS DIRECTED IV PRN
[2019-04-17 09:18] VITALS: BP 125/73
== END 2019-04-17 10:35 | disposition home or self-care (01) ==
LOC: II 08:53 → 5TH 09:18 → II 10:35
PROVIDERS: ATTEND Internal Medicine
DX: D57.1 Sickle-cell disease without crisis (principal); E86.0 Dehydration; R52 Pain, unspecified
CPT/HCPCS: 96365; 96375; 96361; J1200; J1170; J1642

== ENCOUNTER 2019-04-21 13:30 | Outpatient (CLI) | payer MEDICARE, MEDICAID ==
[2019-04-21] MEDS ORDERED: DIPHENHYDRAMINE HCL 25 MG in NORMAL SALINE 50 ML IV PRN (13:50)
[2019-04-21] MEDS ORDERED: NORMAL SALINE 1000 ML 1,000 ML IV PRN (13:50)
[2019-04-21] MEDS ORDERED: HYDROMORPHONE HCL INJ/PF 2 MG/ML AMPULE IV PRN (13:53)
[2019-04-21 14:23] VITALS: BP 123/82
== END 2019-04-21 15:44 | disposition home or self-care (01) ==
LOC: II 13:30 → 5TH 13:32 → II 15:44
PROVIDERS: ATTEND Internal Medicine
DX: D57.1 Sickle-cell disease without crisis (principal); E86.0 Dehydration; R52 Pain, unspecified
CPT/HCPCS: 96365; 96375; 96360; J1200; J1170; J1642; 96361

== ENCOUNTER 2019-04-23 09:16 | Outpatient (CLI) | payer MEDICARE, MEDICAID ==
[2019-04-23 09:28] VITALS: BP 133/82
== END 2019-04-23 11:00 | disposition home or self-care (01) ==
LOC: II 09:16 → 5TH 09:26 → II 11:00
PROVIDERS: ATTEND Internal Medicine
DX: D57.1 Sickle-cell disease without crisis (principal); E86.0 Dehydration; R52 Pain, unspecified
CPT/HCPCS: 96365; 96375; 96360; J1200; J1170; J1642; 96361

== ENCOUNTER 2019-04-24 08:40 | Outpatient (CLI) | payer MEDICARE, MEDICAID ==
[2019-04-24] MEDS ORDERED: DIPHENHYDRAMINE HCL 25 MG in NORMAL SALINE 50 ML IV PRN (08:48)
[2019-04-24] MEDS ORDERED: NORMAL SALINE 1000 ML 1,000 ML IV PRN (08:53)
[2019-04-24 08:54] VITALS: BP 141/87
[2019-04-24] MEDS ORDERED: HYDROMORPHONE HCL INJ/PF 2 MG/ML AMPULE IV PRN (08:54)
== END 2019-04-24 10:13 | disposition home or self-care (01) ==
LOC: 5TH 08:40 → II 08:40
PROVIDERS: ATTEND Internal Medicine
DX: D57.1 Sickle-cell disease without crisis (principal); E86.0 Dehydration; R52 Pain, unspecified
CPT/HCPCS: 96365; 96375; 96360; J1200; J1170; J1642; 96361

== ENCOUNTER → 2019-04-27 | Outpatient (CLI) | payer MEDICARE, MEDICAID ==
[~2019-04-27] MED LIST changes: -DIPHENHYDRAMINE HCL 25 MG in NORMAL SALINE 50 ML IV PRN; +DIPHENHYDRAMINE HCL 50 MG/ML VIAL IV PRN; +DIPHENHYDRAMINE HCL 50 MG/ML VIAL ONE; +HYDROMORPHONE HCL INJ/PF 2 MG/ML AMPULE ONE
[2019-04-27 13:45] VITALS: BP 123/60
== END ==
LOC: ASU 12:58
PROVIDERS: ATTEND Internal Medicine
DX: D57.1 Sickle-cell disease without crisis (principal); E86.0 Dehydration; R52 Pain, unspecified
CPT/HCPCS: 96365; 96366; 96374; 96375; 96361; J1200; J1170; J1642

== ENCOUNTER 2019-04-28 08:45 | Outpatient (CLI) | payer MEDICARE, MEDICAID ==
[~2019-04-28 08:45] MED LIST changes: +DIPHENHYDRAMINE HCL 25 MG in NORMAL SALINE 50 ML IV PRN; -DIPHENHYDRAMINE HCL 50 MG/ML VIAL IV PRN; -DIPHENHYDRAMINE HCL 50 MG/ML VIAL ONE; -HYDROMORPHONE HCL INJ/PF 2 MG/ML AMPULE ONE
[2019-04-28 09:13] VITALS: BP 135/82
== END 2019-04-28 10:20 | disposition home or self-care (01) ==
LOC: II 08:45 → 5TH 08:48 → II 10:20
PROVIDERS: ATTEND Internal Medicine
DX: D57.1 Sickle-cell disease without crisis (principal); E86.0 Dehydration; R52 Pain, unspecified
CPT/HCPCS: 96365; 96375; 96360; J1200; J1170; J1642; 96361

== ENCOUNTER 2019-04-29 08:47 | Outpatient (CLI) | payer MEDICARE, MEDICAID ==
[2019-04-29 09:08] VITALS: BP 121/80
== END 2019-04-29 10:29 | disposition home or self-care (01) ==
LOC: II 08:47 → 5TH 08:49 → II 10:29
PROVIDERS: ATTEND Internal Medicine
DX: D57.1 Sickle-cell disease without crisis (principal); E86.0 Dehydration; R52 Pain, unspecified
CPT/HCPCS: 96367; 96375; 96361; J1200; J1170; J1642; 96365

== ENCOUNTER 2019-04-30 09:00 | Outpatient (CLI) | payer MEDICARE, MEDICAID ==
[2019-04-30 09:09] VITALS: BP 127/88
== END 2019-04-30 10:30 | disposition home or self-care (01) ==
LOC: II 09:00 → 5TH 09:02 → II 10:30
PROVIDERS: ATTEND Internal Medicine
DX: D57.1 Sickle-cell disease without crisis (principal); E86.0 Dehydration; R52 Pain, unspecified
CPT/HCPCS: 96365; 96375; 96360; J1200; J1170; J1642; 96361

== ENCOUNTER 2019-05-01 14:42 | Outpatient (CLI) | payer MEDICARE, MEDICAID ==
[2019-05-01 16:37] VITALS: BP 136/84
== END 2019-05-01 16:39 | disposition home or self-care (01) ==
LOC: II 14:42 → 5TH 15:02 → II 16:39
PROVIDERS: ATTEND Internal Medicine
DX: D57.1 Sickle-cell disease without crisis (principal); E86.0 Dehydration; R52 Pain, unspecified
CPT/HCPCS: 96365; 96375; 96361; J1200; J1170; J1642

== ENCOUNTER 2019-05-02 16:23 | Emergency (ER) | payer MEDICARE, MEDICAID ==
[2019-05-02] MEDS ORDERED: DIPHENHYDRAMINE HCL 50 MG/ML VIAL IV ONE ×2 (17:00→19:15)
--- NOTE | 2019-05-02 17:01 | ER Document Report ---
ED Medical Screen (RME) - General Chief Complaint: Pain All Over Stated Complaint: BODY PAIN/POSSIBLE SICKLE CELL PAIN Time Seen by Provider: 05/02/19 16:58 Primary Care Provider: BETH STAPLETON MD [Primary Care Provider] - Follow up as needed TRAVEL OUTSIDE OF THE [place] IN LAST 30 DAYS: No - HPI Notes: 05/02/19 17:01 Patient is a 38-year-old male with a history of sickle cell who presents complaining of generalized body pain as well as shortness of breath and rib pain around his chest that began today. No fever. I have treated and performed a rapid initial assessment of this patient. A comprehensive ED assessment and evaluation of the patient, analysis of test results and completion of medical decision making process will be conducted by additional ED providers. PHYSICAL EXAMINATION: GENERAL: Well-appearing, well-nourished and in no acute distress. A&Ox4. Answers questions appropriately. Lungs: Grossly CTAB Heart: RRR - Related Data Allergies/Adverse Reactions: famotidine [From Pepcid] Allergy (Severe, Verified 05/02/19 16:54) Anaphylaxis ketorolac tromethamine [From Toradol] Allergy (Severe, Verified 05/02/19 16:54) levofloxacin [From Levaquin] Allergy (Severe, Verified 05/02/19 16:54) meperidine HCl [From Demerol] Allergy (Severe, Verified 05/02/19 16:54) morphine [Morphine] Allergy (Severe, Verified 05/02/19 16:54) tramadol HCl [From Ultram] Allergy (Severe, Verified 05/02/19 16:54) amoxicillin [Amoxicillin] Allergy (Verified 05/02/19 16:54) fentanyl [Fentanyl] Allergy (Verified 05/02/19 16:54) latex [Latex] Allergy (Verified 05/02/19 16:54) ondansetron HCl [From Zofran] Allergy (Verified 05/02/19 16:54) Pork/Porcine Containing Products Allergy (Verified 05/02/19 16:54) promethazine Allergy (Verified 05/02/19 16:54) Past Medical History - Past Medical History Cardiac Medical History: Denies: Hx Atrial Fibrillation, Hx Congestive Heart Failure, Hx Coronary Artery Disease Pulmonary Medical History: Reports: Hx Pneumonia Denies: Hx Asthma, Hx Bronchitis, Hx COPD, Hx Tuberculosis Neurological Medical History: Reports: Hx Seizures. Denies: Hx Migraine, Hx Parkinson's Disease Endocrine Medical History: Denies: Hx Diabetes Mellitus Type 1, Hx Diabetes Mellitus Type 2 Renal/ Medical History: Denies: Hx Peritoneal Dialysis GI Medical History: Denies: Hx Cirrhosis, Hx Hepatitis Musculoskeltal Medical History: Denies Hx Arthritis, Denies Hx Gout, Reports Hx Musculoskeletal Deformity - right hip avascular necrosis Skin Medical History: Denies Hx Eczema, Denies Hx Psoriasis Psychiatric Medical History: Reports: Hx Depression Infectious Medical History: Denies: Hx Hepatitis Past Surgical History: Reports: Hx Appendectomy, Hx Vascular Surgery - L port placement, Other - Port placement - Immunizations Immunizations up to date: Yes Hx Diphtheria, Pertussis, Tetanus Vaccination: Yes Physical Exam - Vital signs Vitals: Temp Pulse Resp BP Pulse Ox 98.4 F 89 16 127/81 H 93 05/02/19 16:38 05/02/19 16:38 05/02/19 16:38 05/02/19 16:38 05/02/19 16:38 Course - Vital Signs Vital signs: Temp Pulse Resp BP Pulse Ox 98.4 F 89 16 127/81 H 93 05/02/19 16:38 05/02/19 16:38 05/02/19 16:38 05/02/19 16:38 05/02/19 16:38 Doctor's Discharge - Discharge Referrals: BETH STAPLETON MD [Primary Care Provider] - Follow up as needed
--- NOTE | 2019-05-02 17:46 | RADIOLOGY REPORT (SQ) ---
EXAM DESCRIPTION: CHEST SINGLE VIEW COMPLETED DATE/TIME: 05/02/2019 5:35 pm REASON FOR STUDY: sickle pain, CP, SOB COMPARISON: 02/03/2019 TECHNIQUE: Single frontal radiographic view of the chest acquired. NUMBER OF VIEWS: One view. LIMITATIONS: None. FINDINGS: LUNGS AND PLEURA: No pneumothorax. Mild basilar subsegmental atelectasis-interstitial roderick nges. No dense consolidation or significant pleural effusion. MEDIASTINUM AND HILAR STRUCTURES: Stable. HEART AND VASCULAR STRUCTURES: Stable. BONES: No acute findings. HARDWARE: Left chest port. OTHER: No other significant finding. IMPRESSION: Mild basilar subsegmental atelectasis-interstitial changes. No dense consolidation or significant pleural effusion. TECHNICAL DOCUMENTATION: JOB ID: [id number] [id number] [employer]- All Rights Reserved Reading location - IP/workstation name: [email or web address]
[2019-05-02] MEDS: NORMAL SALINE 1000 ML 1,000 ML IV PRN ×2 (18:07→19:51)
[2019-05-02] MEDS: HYDROMORPHONE HCL INJ/PF 2 MG/ML AMPULE IV PRN ×3 (18:13→20:42)
[2019-05-02 18:30] LABS: ALBUMIN 4.2 g/dL (3.5-5.0); ALKALINE PHOSPHATASE 103 U/L (38-126); ANION GAP 6 (5-19); ASPARTATE AMINO TRANSFERASE 54 U/L (17-59); BILIRUBIN,DIRECT 0.1 mg/dL (0.0-0.4); BILIRUBIN,TOTAL 2.2 mg/dL (0.2-1.3); BLOOD UREA NITROGEN 10 mg/dL (7-20); CALCIUM 8.7 mg/dL (8.4-10.2); CARBON DIOXIDE 30 mmol/L (22-30); CHLORIDE 104 mmol/L (98-107); GLUCOSE 87 mg/dL (75-110); POTASSIUM 4.1 mmol/L (3.6-5.0); TOTAL PROTEIN 8.3 g/dL (6.3-8.2)
[2019-05-02 18:38] LABS: ABSOLUTE RETICS # 0.245 10^6/uL (0.028-0.122); HEMATOCRIT 26.3 % (37.9-51.0); HEMOGLOBIN 9.3 g/dL (13.5-17.0); MEAN CORPUSCULAR HEMOGLOBIN 34.4 pg (27.0-33.4); MEAN CORPUSCULAR HGB CONC 35.6 g/dL (32.0-36.0); MEAN CORPUSCULAR VOLUME 97 fl (80-97); PLATELET COUNT 249 10^3/uL (150-450); RED BLOOD COUNT 2.71 10^6/uL (4.35-5.55); RED CELL DISTRIBUTION WIDTH 22.8 % (11.5-14.0); RETICULOCYTE COUNT (AUTO) 9.04 % (0.66-2.85)
[2019-05-02 19:11] LABS: ABSOLUTE LYMPHOCYTES# (MANUAL) 2.4 10^3/uL (0.5-4.7); ABSOLUTE MONOCYTES # (MANUAL) 0.3 10^3/uL (0.1-1.4); BASOPHILS % (MANUAL) 0 % (0-2); EOSINOPHILS % (MANUAL) 0 % (0-6); LYMPHOCYTES % (MANUAL) 24 % (13-45); MONOCYTES % (MANUAL) 3 % (3-13); NUCLEATED RED BLOOD CELLS 9 /100 WBC (0); SEGMENTED NEUTROPHILS % (MAN) 73 % (42-78); TOTAL CELLS COUNTED 100
[2019-05-02 19:15] LABS: ANISOCYTOSIS 3+; PLATELET COMMENT ADEQUATE; POIKILOCYTOSIS 2+; POLYCHROMASIA 1+; SICKLE RED CELLS 1+; TARGET CELLS 1+
--- NOTE | 2019-05-02 20:08 | ER Document Report ---
ED General - General Chief Complaint: Sickle Cell Crisis Stated Complaint: BODY PAIN/POSSIBLE SICKLE CELL PAIN Time Seen by Provider: 05/02/19 16:58 Primary Care Provider: BETH STAPLETON MD [Primary Care Provider] - 05/04/19 TRAVEL OUTSIDE OF THE [place] IN LAST 30 DAYS: No - HPI Notes: 38-year-old male with history of sickle cell anemia to the emergency department with complaints of all over body pain that is consistent with his normal sickle cell pain. He states this started about 2 days ago. He is taken his normal medicineoxycodone, hydroxyurea, folic acid but he has not had good pain control. He states it is been sometime since he had an episode of acute crisis pain. He states that he is followed by Dr. Stapleton as his oral surgery physician. He states that he has not had a transfusion in several years. His last admission was several months ago. He states that when he has acute pain like this he usually requires couple doses of Dilaudid as well as Benadryl. He denies any carol chest pain, shortness of breath, fevers, nausea, vomiting. He states that a lot of times when the weather changes and its rainy he goes into an acute episode. He is not a smoker. He does have a history of acute chest syndrome in the past when he was 16 and in his early 20s. He admits to some lower rib pain but states this does not feel like acute chest syndrome to him. - Related Data Allergies/Adverse Reactions: famotidine [From Pepcid] Allergy (Severe, Verified 05/02/19 16:54) Anaphylaxis ketorolac tromethamine [From Toradol] Allergy (Severe, Verified 05/02/19 16:54) levofloxacin [From Levaquin] Allergy (Severe, Verified 05/02/19 16:54) meperidine HCl [From Demerol] Allergy (Severe, Verified 05/02/19 16:54) morphine [Morphine] Allergy (Severe, Verified 05/02/19 16:54) tramadol HCl [From Ultram] Allergy (Severe, Verified 05/02/19 16:54) amoxicillin [Amoxicillin] Allergy (Verified 05/02/19 16:54) fentanyl [Fentanyl] Allergy (Verified 05/02/19 16:54) latex [Latex] Allergy (Verified 05/02/19 16:54) ondansetron HCl [From Zofran] Allergy (Verified 05/02/19 16:54) Pork/Porcine Containing Products Allergy (Verified 05/02/19 16:54) promethazine Allergy (Verified 05/02/19 16:54) Past Medical History - General Information source: Patient - Social History Smoking Status: Former Smoker Chew tobacco use (# tins/day): No Frequency of alcohol use: None Drug Abuse: None Lives with: Family Family History: Reviewed & Not Pertinent, Hypertension Patient has suicidal ideation: No Patient has homicidal ideation: No - Past Medical History Cardiac Medical History: Denies: Hx Atrial Fibrillation, Hx Congestive Heart Failure, Hx Coronary Artery Disease Pulmonary Medical History: Reports: Hx Pneumonia Denies: Hx Asthma, Hx Bronchitis, Hx COPD, Hx Tuberculosis Neurological Medical History: Reports: Hx Seizures. Denies: Hx Migraine, Hx Parkinson's Disease Endocrine Medical History: Denies: Hx Diabetes Mellitus Type 1, Hx Diabetes Mellitus Type 2 Renal/ Medical History: Denies: Hx Peritoneal Dialysis GI Medical History: Denies: Hx Cirrhosis, Hx Hepatitis Musculoskeletal Medical History: Denies Hx Arthritis, Denies Hx Gout, Reports Hx Musculoskeletal Deformity - right hip avascular necrosis Skin Medical History: Denies Hx Eczema, Denies Hx Psoriasis Psychiatric Medical History: Reports: Hx Depression Infectious Medical History: Denies: Hx Hepatitis Past Surgical History: Reports: Hx Appendectomy, Hx Vascular Surgery - L port placement, Other - Port placement - Immunizations Immunizations up to date: Yes Hx Diphtheria, Pertussis, Tetanus Vaccination: Yes Hx Pneumococcal Vaccination: 02/20/11 Review of Systems - Review of Systems Constitutional: denies: Chills, Fever EENT: No symptoms reported Cardiovascular: denies: Chest pain, Palpitations, Dyspnea, Syncope, Dizziness Gastrointestinal: denies: Abdominal pain, Diarrhea, Nausea, Vomiting Genitourinary: No symptoms reported Musculoskeletal: See HPI, Joint pain, Muscle pain Skin: No symptoms reported Hematologic/Lymphatic: No symptoms reported Neurological/Psychological: No symptoms reported -: Yes All other systems reviewed and negative Physical Exam - Vital signs Vitals: Temp Pulse Resp BP Pulse Ox 98.4 F 89 16 127/81 H 93 05/02/19 16:38 05/02/19 16:38 05/02/19 16:38 05/02/19 16:38 05/02/19 16:38 - General General appearance: Alert In distress: Mild - Mild pain distress - HEENT Head: Normocephalic, Atraumatic Eyes: Normal Pupils: PERRL Ears: Normal External canal: Normal Tympanic membrane: Normal Sinus: Normal Nasal: Normal Mouth/Lips: Normal Mucous membranes: Normal Pharynx: Normal Neck: Normal, Supple. No: Lymphadenopathy, Meningismus - Respiratory Respiratory status: No respiratory distress Chest status: Nontender. No: Accessory muscle use Breath sounds: Normal. No: Rales, Rhonchi, Stridor, Wheezing Chest palpation: Normal - Cardiovascular Rhythm: Regular Heart sounds: Normal auscultation Murmur: No - Abdominal Inspection: Normal Distension: No distension Bowel sounds: Normal Tenderness: Nontender. No: Tender, McBurney's point, Ortiz's sign, Guarding, Rebound, Other Organomegaly: No organomegaly - Extremities Notes: Patient has tenderness to palpation over her bilateral lower extremities with no edema, erythema. He states that his is his normal sickle cell pain. He has tenderness to palpation over his upper extremity joints and to bilateral lower ribs. There is no tenderness to palpation over the anterior chest wall. No tenderness to palpation over the back. 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 No: Pronator drift Sensory: Normal - Psychological Associated symptoms: Normal affect, Normal mood - Skin Skin Temperature: Warm Skin Moisture: Dry Skin Color: Normal Course - Re-evaluation Re-evalutation: 05/02/19 21:38 Patient is feeling much better after pain medicine. He states that his pain is nearly gone except for a couple of areas. He states he feels like he is good to go home. We will discharge him. He has a stable H&H and his reticulocyte count is typically around 9 like it is today. I have encouraged him to follow-up with his oral surgery physician. He agrees with the plan. Have encouraged him to return if any worsening symptoms. Impression: Sickle cell pain. Patient has done well in the emergency department tonight and has had good pain control. We will discharge home. He will follow closely with his oral surgery physician. - Vital Signs Vital signs: Temp Pulse Resp BP Pulse Ox 98.3 F 81 19 151/94 H 100 05/02/19 22:00 05/02/19 22:00 05/02/19 22:00 05/02/19 22:00 05/02/19 22:00 - Laboratory Result Diagrams: 05/02/19 18:04 05/02/19 18:04 Laboratory results interpreted by me: 05/02/19 05/02/19 18:04 18:04 RBC 2.71 L Hgb 9.3 L Hct 26.3 L MCH 34.4 H RDW 22.8 H Reticulocyte # 0.245 H Retic Count (auto) 9.04 H Total Bilirubin 2.2 H Total Protein 8.3 H Discharge - Discharge Clinical Impression: Sickle cell anemia with pain Condition: Stable Disposition: HOME, SELF-CARE Instructions: Sickle Cell Crisis ([facility]) Additional Instructions: Follow-up with your oral surgery physician without fail. Continue to push fluids. Take your regular medicine as prescribed. Return here if you have any worsening symptoms. Referrals: BETH STAPLETON MD [Primary Care Provider] - 05/04/19
[2019-05-02 22:19] VITALS: BP 151/94
--- NOTE | 2019-05-03 20:42 | EKG REPORT ---
SEVERITY:- ABNORMAL ECG - SINUS RHYTHM PROBABLE LEFT ATRIAL ABNORMALITY PROBABLE LVH WITH SECONDARY REPOL ABNRM ANTERIOR Q WAVES, POSSIBLY DUE TO LVH : Confirmed by: Enedina Traylor 03-May-2019 20:42:25
== END 2019-05-02 22:20 | disposition home or self-care (01) ==
LOC: ER 16:23
DX: D57.00 Hb-SS disease with crisis, unspecified (principal); M79.10 Myalgia, unspecified site; R07.81 Pleurodynia; Z79.899 Other long term (current) drug therapy; Z87.891 Personal history of nicotine dependence
CPT/HCPCS: 93005; 36591; 96376; 99284; 96361; 96374; 96375; 36415; 85025; 85045; 80053; 84484; 71045; 93010; J1200; J1170; J7030; J1642

== ENCOUNTER 2019-05-03 10:55 | Inpatient (IN) | payer MEDICARE, MEDICAID ==
--- NOTE | 2019-05-03 11:39 | ER Document Report ---
ED Medical Screen (RME) - General Chief Complaint: Pain All Over Stated Complaint: BODY PAIN, RIB PAIN Time Seen by Provider: 05/03/19 11:35 Primary Care Provider: BETH STAPLETON MD [Primary Care Provider] - Follow up as needed Mode of Arrival: Wheelchair Information source: Patient Notes: 38-year-old male with history of sickle cell presents today with complaints of sickle cell crisis. Complains of left-sided chest pain joint pain. Denies fever vomiting diarrhea. Patient was evaluated for same and treated in the emergency department yesterday. I have greeted and performed a rapid initial assessment of this patient. A comprehensive ED assessment and evaluation of the patient, analysis of test results and completion of the medical decision making process will be conducted by additional ED providers. TRAVEL OUTSIDE OF THE [place] IN LAST 30 DAYS: No - Related Data Allergies/Adverse Reactions: famotidine [From Pepcid] Allergy (Severe, Verified 05/02/19 16:54) Anaphylaxis ketorolac tromethamine [From Toradol] Allergy (Severe, Verified 05/02/19 16:54) levofloxacin [From Levaquin] Allergy (Severe, Verified 05/02/19 16:54) meperidine HCl [From Demerol] Allergy (Severe, Verified 05/02/19 16:54) morphine [Morphine] Allergy (Severe, Verified 05/02/19 16:54) tramadol HCl [From Ultram] Allergy (Severe, Verified 05/02/19 16:54) amoxicillin [Amoxicillin] Allergy (Verified 05/02/19 16:54) fentanyl [Fentanyl] Allergy (Verified 05/02/19 16:54) latex [Latex] Allergy (Verified 05/02/19 16:54) ondansetron HCl [From Zofran] Allergy (Verified 05/02/19 16:54) Pork/Porcine Containing Products Allergy (Verified 05/02/19 16:54) promethazine Allergy (Verified 05/02/19 16:54) Past Medical History - Past Medical History Cardiac Medical History: Denies: Hx Atrial Fibrillation, Hx Congestive Heart Failure, Hx Coronary Artery Disease Pulmonary Medical History: Reports: Hx Pneumonia Denies: Hx Asthma, Hx Bronchitis, Hx COPD, Hx Tuberculosis Neurological Medical History: Reports: Hx Seizures. Denies: Hx Migraine, Hx Parkinson's Disease Endocrine Medical History: Denies: Hx Diabetes Mellitus Type 1, Hx Diabetes Mellitus Type 2 Renal/ Medical History: Denies: Hx Peritoneal Dialysis GI Medical History: Denies: Hx Cirrhosis, Hx Hepatitis Musculoskeltal Medical History: Denies Hx Arthritis, Denies Hx Gout, Reports Hx Musculoskeletal Deformity - right hip avascular necrosis Skin Medical History: Denies Hx Eczema, Denies Hx Psoriasis Psychiatric Medical History: Reports: Hx Depression Infectious Medical History: Denies: Hx Hepatitis Past Surgical History: Reports: Hx Appendectomy, Hx Vascular Surgery - L port placement, Other - Port placement - Immunizations Immunizations up to date: Yes Hx Diphtheria, Pertussis, Tetanus Vaccination: Yes Physical Exam - Vital signs Vitals: Temp Pulse Resp BP Pulse Ox 99.2 F 81 16 145/87 H 98 05/03/19 11:32 05/03/19 11:32 05/03/19 11:32 05/03/19 11:32 05/03/19 11:32 Course - Vital Signs Vital signs: Temp Pulse Resp BP Pulse Ox 99.2 F 81 16 145/87 H 98 05/03/19 11:32 05/03/19 11:32 05/03/19 11:32 05/03/19 11:32 05/03/19 11:32 Doctor's Discharge - Discharge Referrals: BETH STAPLETON MD [Primary Care Provider] - Follow up as needed
--- NOTE | 2019-05-03 12:30 | RADIOLOGY REPORT (SQ) ---
EXAM DESCRIPTION: CHEST 2 VIEWS COMPLETED DATE/TIME: 05/03/2019 11:12 am REASON FOR STUDY: pain hx ss COMPARISON: Chest radiograph, 05/02/2019. CT chest, 02/05/2019 EXAM PARAMETERS: NUMBER OF VIEWS: two views TECHNIQUE: Digital Frontal and Lateral radiographic views of the chest acquired. RADIATION DOSE: NA LIMITATIONS: none FINDINGS: LUNGS AND PLEURA: There is worsening consolidation at the left lung base and patchy right basilar opacity is which may represent atelectasis or developing airspace disease. No pleural effusi on or pneumothorax. MEDIASTINUM AND HILAR STRUCTURES: No masses or contour abnormalities. HEART AND VASCULAR STRUCTURES: Heart normal size. No evidence for failure. BONES: No acute findings. HARDWARE: Left infraclavicular MediPort catheter with tip in the mid SVC is unchanged. OTHER: No other significant finding. IMPRESSION: NO ACUTE RADIOGRAPHIC FINDING IN THE CHEST. COMMENT: Developing consolidation/atelectasis at the left lung base and ill-defined consolidation/ a telectasis at the right lung base. Findings may represent infectious or inflammatory process. TECHNICAL DOCUMENTATION: JOB ID: [id number]- All Rights Reserved Reading location - IP/workstation name: [email or web address]
[2019-05-03 12:59] LABS: ABSOLUTE RETICS # 0.287 10^6/uL (0.028-0.122); HEMOGLOBIN 9.4 g/dL (13.5-17.0); MEAN CORPUSCULAR HEMOGLOBIN 33.8 pg (27.0-33.4); MEAN CORPUSCULAR HGB CONC 34.8 g/dL (32.0-36.0); MEAN CORPUSCULAR VOLUME 97 fl (80-97); PLATELET COUNT 230 10^3/uL (150-450); RED BLOOD COUNT 2.78 10^6/uL (4.35-5.55); RED CELL DISTRIBUTION WIDTH 22.6 % (11.5-14.0); RETICULOCYTE COUNT (AUTO) 10.32 % (0.66-2.85); WHITE BLOOD COUNT 8.4 10^3/uL (4.0-10.5)
[2019-05-03 13:19] LABS: ALBUMIN 4.4 g/dL (3.5-5.0); ALKALINE PHOSPHATASE 104 U/L (38-126); ANION GAP 8 (5-19); ASPARTATE AMINO TRANSFERASE 44 U/L (17-59); BILIRUBIN,DIRECT 0.2 mg/dL (0.0-0.4); BLOOD UREA NITROGEN 8 mg/dL (7-20); CALCIUM 8.8 mg/dL (8.4-10.2); CARBON DIOXIDE 27 mmol/L (22-30); CHLORIDE 104 mmol/L (98-107); GLUCOSE 95 mg/dL (75-110); POTASSIUM 4.1 mmol/L (3.6-5.0); TOTAL PROTEIN 8.4 g/dL (6.3-8.2)
[2019-05-03] MEDS ORDERED: HYDROMORPHONE HCL INJ/PF 2 MG/ML AMPULE IV PRN ×3 (13:19→18:51)
[2019-05-03] MEDS ORDERED: NORMAL SALINE 1000 ML 1,000 ML IV ONE (13:19)
[2019-05-03] MEDS ORDERED: DIPHENHYDRAMINE HCL 50 MG/ML VIAL IV ONE ×2 (13:20→16:19)
--- NOTE | 2019-05-03 13:23 | ER Document Report ---
ED General Pain - General Chief Complaint: Pain All Over Stated Complaint: BODY PAIN, RIB PAIN Time Seen by Provider: 05/03/19 11:35 Mode of Arrival: Wheelchair Notes: Patient is a 38-year-old male with a past medical history of sickle cell anemia who presents to the emergency department with left-sided chest pain. States the pain started yesterday. Patient states that during the wintertime, his pain gets worse. He is currently on oxycodone. His oxycodone did not help today. He was also here yesterday. Patient sees Dr. Medellin. Moving exacerbates the pain. Staying still does not make it go away, but keeps it from going up. Patient also has complaints of pain to all his joints. TRAVEL OUTSIDE OF THE [place] IN LAST 30 DAYS: No - Related Data Allergies/Adverse Reactions: famotidine [From Pepcid] Allergy (Severe, Verified 05/03/19 14:14) Anaphylaxis ketorolac tromethamine [From Toradol] Allergy (Severe, Verified 05/03/19 14:14) levofloxacin [From Levaquin] Allergy (Severe, Verified 05/03/19 14:14) meperidine HCl [From Demerol] Allergy (Severe, Verified 05/03/19 14:14) morphine [Morphine] Allergy (Severe, Verified 05/03/19 14:14) tramadol HCl [From Ultram] Allergy (Severe, Verified 05/03/19 14:14) amoxicillin [Amoxicillin] Allergy (Verified 05/03/19 14:14) fentanyl [Fentanyl] Allergy (Verified 05/03/19 14:14) latex [Latex] Allergy (Verified 05/03/19 14:14) ondansetron HCl [From Zofran] Allergy (Verified 05/03/19 14:14) Pork/Porcine Containing Products Allergy (Verified 05/03/19 14:14) promethazine Allergy (Verified 05/03/19 14:14) Past Medical History - General Information source: Patient - Social History Smoking Status: Former Smoker Family History: Reviewed & Not Pertinent, Hypertension Patient has suicidal ideation: No Patient has homicidal ideation: No - Past Medical History Cardiac Medical History: Denies: Hx Atrial Fibrillation, Hx Congestive Heart Failure, Hx Coronary Artery Disease Pulmonary Medical History: Reports: Hx Pneumonia Denies: Hx Asthma, Hx Bronchitis, Hx COPD, Hx Tuberculosis Neurological Medical History: Reports: Hx Seizures. Denies: Hx Migraine, Hx Parkinson's Disease Endocrine Medical History: Denies: Hx Diabetes Mellitus Type 1, Hx Diabetes Mellitus Type 2 Renal/ Medical History: Denies: Hx Peritoneal Dialysis GI Medical History: Denies: Hx Cirrhosis, Hx Hepatitis Musculoskeletal Medical History: Denies Hx Arthritis, Denies Hx Gout, Reports Hx Musculoskeletal Deformity - right hip avascular necrosis Skin Medical History: Denies Hx Eczema, Denies Hx Psoriasis Psychiatric Medical History: Reports: Hx Depression Infectious Medical History: Denies: Hx Hepatitis Past Surgical History: Reports: Hx Appendectomy, Hx Vascular Surgery - L port placement, Other - Port placement - Immunizations Immunizations up to date: Yes Hx Diphtheria, Pertussis, Tetanus Vaccination: Yes Hx Pneumococcal Vaccination: 02/20/11 Review of Systems - Review of Systems Notes: REVIEW OF SYSTEMS: CONSTITUTIONAL : Denies recent illness. Denies recent unintentional weight loss. Denies fever, chills, or sweats. EENT: Denies eye, ear, throat, or mouth pain, discharge, or symptoms. Denies nasal or sinus congestion. CARDIOVASCULAR: See HPI. RESPIRATORY: See HPI. GASTROINTESTINAL: Denies nausea, vomiting, and diarrhea. Denies abdominal pain. Denies constipation. GENITOURINARY: Denies difficulty urinating, burning, blood in urine, urgency or frequency. MUSCULOSKELETAL: See HPI. SKIN: Denies rash, itchiness, or lesions HEMATOLOGIC : Denies easy bruising or bleeding. LYMPHATIC: Denies swollen, painful, enlarged glands. NEUROLOGICAL: Denies no numbness or tingling denies weakness. Denies headache. Denies altered mental status. Denies alteration in speech. PSYCHIATRIC: Denies stress, anxiety, alteration in sleep patterns, or depression. All other systems reviewed and negative. Physical Exam - Vital signs Vitals: Temp Pulse Resp BP Pulse Ox 99.2 F 81 16 145/87 H 98 05/03/19 11:32 05/03/19 11:32 05/03/19 11:32 05/03/19 11:32 05/03/19 11:32 - Notes Notes: PHYSICAL EXAMINATION: GENERAL: Appears well, healthy, well-nourished, no acute distress. HEAD: Normocephalic, atraumatic. EYES: PERRL, conjunctiva normal, all extraocular movements intact, sclera nonicteric ENT: Moist mucous membranes. NECK: Supple, no noticeable swelling, redness, rash. Normal range of motion. LUNGS: Equal breath sounds bilaterally and clear to auscultation. No wheezes rales or rhonchi. CARDIOVASCULAR: S1-S2, regular rate, regular rhythm. Radial pulses 2+, normal. ABDOMEN: Normoactive bowel sounds. Soft, nontender, no guarding, no rebound tenderness, and no masses palpated. EXTREMITIES: Normal strength and range of motion, no pitting or edema. No cyanosis. NEUROLOGICAL: Moves all extremities upon command. Strength 5/5 in all extremities. PSYCH: Normal mood, normal affect. SKIN: Warm, dry. No rash, lesions, ulcerations noted. Normal skin turgor. Course - Re-evaluation Re-evalutation: 05/03/19 14:38 I reevaluated the patient he states he is still in pain. Will switch his Dilaudid to every 1 hour as needed. 05/03/19 17:36 I reevaluated the patient. He states he is still in pain. I consulted [facility], who is outreach professional for Dr. Medellin. I have a very low suspicion for acute chest syndrome. Patient's retake count did elevate. 05/03/19 17:[address] Ballesteros and RICHELLE Carbajal. Patient will be admitted to [facility]. - Vital Signs Vital signs: Temp Pulse Resp BP Pulse Ox 98.2 F 78 17 144/83 H 100 05/03/19 19:27 05/03/19 19:27 05/03/19 19:27 05/03/19 19:27 05/03/19 19:27 - Laboratory Result Diagrams: 05/03/19 12:45 05/03/19 12:45 Laboratory results interpreted by me: 05/03/19 05/03/19 12:45 12:45 RBC 2.78 L Hgb 9.4 L Hct 27.0 L MCH 33.8 H RDW 22.6 H Reticulocyte # 0.287 H Seg Neuts % (Manual) 81 H Monocytes % (Manual) 2 L Retic Count (auto) 10.32 H Total Bilirubin 3.0 H Total Protein 8.4 H Discharge - Discharge Clinical Impression: Sickle cell anemia, Sickle cell pain crisis Condition: Stable Disposition: ADMITTED INPATIENT Admitting Provider: Jez (Hospitalist) Unit Admitted: [facility]
[2019-05-03 13:30] LABS: ABSOLUTE LYMPHOCYTES# (MANUAL) 1.4 10^3/uL (0.5-4.7); ABSOLUTE MONOCYTES # (MANUAL) 0.2 10^3/uL (0.1-1.4); BASOPHILS % (MANUAL) 0 % (0-2); EOSINOPHILS % (MANUAL) 0 % (0-6); LYMPHOCYTES % (MANUAL) 17 % (13-45); MONOCYTES % (MANUAL) 2 % (3-13); NUCLEATED RED BLOOD CELLS 11 /100 WBC (0); SEGMENTED NEUTROPHILS % (MAN) 81 % (42-78); TOTAL CELLS COUNTED 100
[2019-05-03 13:34] LABS: ANISOCYTOSIS 3+; PLATELET COMMENT ADEQUATE; POIKILOCYTOSIS 1+; POLYCHROMASIA 1+; SICKLE RED CELLS 1+; TARGET CELLS SLIGHT
[2019-05-03] MEDS: HYDROMORPHONE HCL INJ/PF 2 MG/ML AMPULE IV PRN ×3 (14:51→22:30)
[2019-05-03] MEDS ORDERED: OXYCODONE-ACETAMINOPHEN 5-325 MG TABLET PO PRN (18:18)
[2019-05-03] MEDS ORDERED: ACETAMINOPHEN 325 MG TABLET PO PRN (18:18)
--- NOTE | 2019-05-03 19:04 | PDOC H&P ---
History of Present Illness Admission Date/PCP: 05/03/19 17:51 BETH STAPLETON MD History of Present Illness: MARISA GARBER is a 38 year old male with sickle cell disease. Patient sta ronen he has been hurting since the beginning of the new year and then has been into the emergency room on multiple occasions for joint pain. Patient states the medicine he takes as an outpatient has not helped therefore he is come into the emergency room. Reticulocyte count is 10.32. It looks like he has been as high as 14.55 and as low as 5.09. Average appears to be about 10 Electrolytes are grossly normal total protein is a little high 8.4 total bilirubin slightly high at 3.0 renal functions are normal Past Medical History Cardiac Medical History: Denies: Atrial Fibrillation, Congestive Heart Failure, Coronary Artery Disease Pulmonary Medical History: Reports: Pneumonia Denies: Asthma, Bronchitis, Chronic Obstructive Pulmonary Disease (COPD), Tuberculosis Neurological Medical History: Reports: Seizures Denies: Migraine Endocrine Medical History: Denies: Diabetes Mellitus Type 1, Diabetes Mellitus Type 2 GI Medical History: Denies: Cirrhosis, Hepatitis Musculoskeltal Medical History: Denies: Arthritis, Gout Skin Medical History: Denies: Eczema, Psoriasis Psychiatric Medical History: Reports: Depression Hematology: Reports: Anemia, Sickle Cell Disease Denies: Hemophilia, Bleeding Tendencies Past Surgical History Past Surgical History: Reports: Appendectomy, Vascular Surgery - L port placement, Other - Port placement Social History Smoking Status: Former Smoker Frequency of Alcohol Use: None Hx Recreational Drug Use: No Drugs: None Hx Prescription Drug Abuse: No - Advance Directive Resuscitation Status: Full Code Family History Family History: Reviewed & Not Pertinent, Hypertension Parental Family History Reviewed: No Children Family History Reviewed: No Sibling(s) Family History Reviewed.: No Medication/Allergy Home Medications: Folic Acid [Folvite 1 mg Tablet] 1 mg PO DAILY 02/19/19 Hydroxyurea [Hydrea 500 mg Capsule] 1,500 mg PO DAILY 02/19/19 Ibuprofen [Motrin 600 mg Tablet] 600 mg PO Q6HP PRN 02/19/19 Methadone HCl [Dolophine HCl] 5 mg PO Q8 02/19/19 Oxycodone HCl [Oxy-Ir 5 mg Tablet] 10 mg PO Q4HP PRN 02/19/19 Sennosides/Docusate 8.6-50 mg [Senna Plus Tablet] 1 tab PO BIDP PRN 02/19/19 Bisacodyl [Dulcolax 5 mg Tablet] 10 mg PO DAILYP PRN #15 tabec 02/27/19 Docusate Sodium [Colace 100 mg Capsule] 100 mg PO DAILY #30 cap 02/27/19 Mag Hydrox/Al Hydrox/Simeth [Maalox Plus Susp 30 Udcup] 30 ml PO Q6HP PRN #240 ml 02/27/19 Polyethylene Glycol 3350 [Miralax Powder 17 gm/Packet] 17 gm PO DAILY 30 Days powd.pack 02/27/19 Allergies/Adverse Reactions: famotidine [From Pepcid] Allergy (Severe, Verified 05/03/19 14:14) Anaphylaxis ketorolac tromethamine [From Toradol] Allergy (Severe, Verified 05/03/19 14:14) levofloxacin [From Levaquin] Allergy (Severe, Verified 05/03/19 14:14) meperidine HCl [From Demerol] Allergy (Severe, Verified 05/03/19 14:14) morphine [Morphine] Allergy (Severe, Verified 05/03/19 14:14) tramadol HCl [From Ultram] Allergy (Severe, Verified 05/03/19 14:14) amoxicillin [Amoxicillin] Allergy (Verified 05/03/19 14:14) fentanyl [Fentanyl] Allergy (Verified 05/03/19 14:14) latex [Latex] Allergy (Verified 05/03/19 14:14) ondansetron HCl [From Zofran] Allergy (Verified 05/03/19 14:14) Pork/Porcine Containing Products Allergy (Verified 05/03/19 14:14) promethazine Allergy (Verified 05/03/19 14:14) Review of Systems Constitutional: ABSENT: chills, fever(s), headache(s), weight gain, weight loss Cardiovascular: PRESENT: other - Rib pain left worse than right Respiratory: ABSENT: cough, hemoptysis Gastrointestinal: ABSENT: abdominal pain, constipation, diarrhea, hematemesis, hematochezia, nausea, vomiting Musculoskeletal: PRESENT: other - Joint pain all over Neurological: ABSENT: abnormal gait, abnormal speech, confusion, dizziness, focal weakness, syncope Psychiatric: ABSENT: anxiety, depression, homidical ideation, suicidal ideation Physical Exam Vital Signs: Temp Pulse Resp BP Pulse Ox 98.5 F 77 14 132/81 H 97 05/03/19 14:55 05/03/19 14:55 05/03/19 14:55 05/03/19 14:55 05/03/19 14:55 Intake & Output 05/02/19 05/03/19 05/04/19 06:59 06:59 06:59 Intake Total 1000 Balance 1000 Weight 86.5 kg General appearance: PRESENT: mild distress, severe distress Respiratory exam: PRESENT: chest wall tenderness, clear to auscultation anastasiya. ABSENT: rales, rhonchi, wheezes Cardiovascular exam: PRESENT: RRR. ABSENT: diastolic murmur, rubs, systolic murmur Musculoskeletal exam: PRESENT: other - Patient states it hurts to move his arms or his legs Neurological exam: PRESENT: alert, awake, oriented to person, oriented to place, oriented to time, oriented to situation, CN II-XII grossly intact. ABSENT: motor sensory deficit Psychiatric exam: PRESENT: flat affect Results Laboratory Results: 05/03/19 12:45 05/03/19 12:45 05/03/19 05/03/19 12:45 12:45 WBC 8.4 RBC 2.78 L Hgb 9.4 L Hct 27.0 L MCV 97 MCH 33.8 H MCHC 34.8 RDW 22.6 H Plt Count 230 Seg Neutrophils % Not Reportable Retic Count (auto) 10.32 H Sodium 139.3 Potassium 4.1 Chloride 104 Carbon Dioxide 27 Anion Gap 8 BUN 8 Creatinine 0.63 Est GFR ( Amer) > 60 Glucose 95 Calcium 8.8 Total Bilirubin 3.0 H AST 44 Alkaline Phosphatase 104 Total Protein 8.4 H Albumin 4.4 05/03/19 05/03/19 12:45 12:45 Creatine Kinase 108 Troponin I < 0.012 Impressions: Chest X-Ray 05/03/19 11:38 IMPRESSION: NO ACUTE RADIOGRAPHIC FINDING IN THE CHEST. Assessment and Plan - Diagnosis (1) Sickle cell pain crisis Is this a current diagnosis for this admission?: Yes (2) Chronic pain Is this a current diagnosis for this admission?: Yes (3) Depression Qualifiers: Is this a current diagnosis for this admission?: Yes (4) Methadone dependence Is this a current diagnosis for this admission?: Yes (5) Opiate dependence, continuous Is this a current diagnosis for this admission?: Yes (6) Sickle-cell disease with pain Is this a current diagnosis for this admission?: Yes - Plan Summary Summary: Patient will be admitted and treated with his usual pain medications. Oncology will be on service tomorrow to resume medical management of his chronic pain and sickle cell crisis pain Patient is medically stable to move to the floor Did call Dr. Bhargav rollins to discuss his pain management and appreciate her information - Time Time Spent with patient: 35 or more minutes
[2019-05-03] MEDS: DIPHENHYDRAMINE HCL 50 MG/ML VIAL IV PRN (19:52)
[2019-05-03] MEDS: NORMAL SALINE 1000 ML 1,000 ML IV PRN (19:55)
--- NOTE | 2019-05-03 20:42 | EKG REPORT ---
SEVERITY:- ABNORMAL ECG - SINUS RHYTHM PROBABLE LVH WITH SECONDARY REPOL ABNRM : Confirmed by: Enedina Traylor 03-May-2019 20:42:12
[2019-05-03] MEDS: METHADONE HCL 10 MG TABLET PO SCH (22:31)
[2019-05-04] MEDS: DIPHENHYDRAMINE HCL 50 MG/ML VIAL IV PRN ×6 (00:38→21:01)
[2019-05-04] MEDS: HYDROMORPHONE HCL INJ/PF 2 MG/ML AMPULE IV PRN ×12 (00:39→22:56)
[2019-05-04 04:17] LABS: APPEARANCE,URINE CLEAR; BILIRUBIN,URINE NEGATIVE (NEGATIVE); COLOR,URINE YELLOW; GLUCOSE, URINE NEGATIVE (NEGATIVE); KETONES,URINE NEGATIVE (NEGATIVE); LEUKOCYTE ESTERASE,URINE NEGATIVE (NEGATIVE); NITRITE,URINE NEGATIVE (NEGATIVE); PROTEIN,URINE NEGATIVE (NEGATIVE)
[2019-05-04 04:18] LABS: HEMATOCRIT 27.9 % (37.9-51.0); HEMOGLOBIN 9.7 g/dL (13.5-17.0); MEAN CORPUSCULAR HEMOGLOBIN 33.8 pg (27.0-33.4); MEAN CORPUSCULAR HGB CONC 34.7 g/dL (32.0-36.0); MEAN CORPUSCULAR VOLUME 97 fl (80-97); PLATELET COUNT 233 10^3/uL (150-450); RED BLOOD COUNT 2.86 10^6/uL (4.35-5.55); RED CELL DISTRIBUTION WIDTH 21.1 % (11.5-14.0); WHITE BLOOD COUNT 9.1 10^3/uL (4.0-10.5)
[2019-05-04 04:23] LABS: INTERNATIONAL RATION (INR) 1.17
[2019-05-04 04:24] LABS: PARTIAL THROMBOPLASTIN TIME 30.1 SEC (23.5-35.8)
[2019-05-04 04:33] LABS: ANION GAP 9 (5-19); BLOOD UREA NITROGEN 7 mg/dL (7-20); CALCIUM 8.8 mg/dL (8.4-10.2); CARBON DIOXIDE 29 mmol/L (22-30); CHLORIDE 101 mmol/L (98-107); GLUCOSE 115 mg/dL (75-110)
[2019-05-04 04:48] LABS: ABSOLUTE MONOCYTES # (MANUAL) 0.4 10^3/uL (0.1-1.4); BASOPHILS % (MANUAL) 0 % (0-2); EOSINOPHILS % (MANUAL) 0 % (0-6); LYMPHOCYTES % (MANUAL) 22 % (13-45); MONOCYTES % (MANUAL) 4 % (3-13); NUCLEATED RED BLOOD CELLS 5 /100 WBC (0); SEGMENTED NEUTROPHILS % (MAN) 74 % (42-78); TOTAL CELLS COUNTED 100
[2019-05-04 04:53] LABS: POLYCHROMASIA 1+; TOXIC GRANULATION SLIGHT
[2019-05-04 04:54] LABS: ANISOCYTOSIS 3+; OVALOCYTES 1+; POIKILOCYTOSIS 3+; SCHISTOCYTES 2+; SICKLE RED CELLS 3+; TARGET CELLS 1+
[2019-05-04 04:55] LABS: PLATELET COMMENT ADEQUATE; TEAR DROP CELLS SLIGHT
[2019-05-04] MEDS: METHADONE HCL 10 MG TABLET PO SCH ×3 (06:35→21:00)
[2019-05-04] MEDS: NORMAL SALINE 1000 ML 1,000 ML IV PRN ×3 (06:37→22:18)
[2019-05-04] MEDS ORDERED: SENNOSIDES/DOCUSATE 8.6-50 MG 1 EACH TABLET PO PRN (07:44)
[2019-05-04] MEDS ORDERED: POLYETHYLENE GLYCOL 3350 POWDER 17 GM/1 PACKET PO PRN (07:44)
[2019-05-04] MEDS ORDERED: PSEUDOEPHEDRINE HCL 30 MG TABLET PO PRN (07:45)
[2019-05-04] MEDS ORDERED: BACLOFEN 10 MG TABLET PO PRN (07:46)
--- NOTE | 2019-05-04 07:47 | PDOC CONSULTATION ---
Consultation Consult Date: 05/04/19 Attending physician:: MARITZA WILLIS Provider Consulted: BETH STAPLETON Consult reason:: Sickle cell crisis History of Present Illness Admission Date/PCP: 05/03/19 17:51 BETH STAPLETON MD Patient complains of: Sickle related pain crisis History of Present Illness: MARISA GARBER is a 38 year old male with known history of sickle cell disease here with crisis. He has known history of crisis with pain and several joint groups but also left-sided chest pain. He did have episodes of chest crisis in the last 6 months. But not requiring the extent of exchange transfusion. Did take some time to get over the last chest crisis with several admissions needed. We had set him up to go to [facility] but he has not been able to make it up there yet because of transportation issues. Past Medical History Cardiac Medical History: Denies: Atrial Fibrillation, Congestive Heart Failure, Coronary Artery Disease Pulmonary Medical History: Reports: Pneumonia Denies: Asthma, Bronchitis, Chronic Obstructive Pulmonary Disease (COPD), Tuberculosis Neurological Medical History: Reports: Seizures Denies: Migraine Endocrine Medical History: Denies: Diabetes Mellitus Type 1, Diabetes Mellitus Type 2 GI Medical History: Denies: Cirrhosis, Hepatitis Musculoskeltal Medical History: Denies: Arthritis, Gout Skin Medical History: Denies: Eczema, Psoriasis Psychiatric Medical History: Reports: Depression Hematology: Reports: Anemia, Sickle Cell Disease Denies: Hemophilia, Bleeding Tendencies Past Surgical History Past Surgical History: Reports: Appendectomy, Vascular Surgery - L port placement, Other - Port placement Social History Information Source: Patient Smoking Status: Former Smoker Last Time Smoked: 4 years ago Frequency of Alcohol Use: None Hx Recreational Drug Use: No Drugs: None Hx Prescription Drug Abuse: No - Advance Directive Resuscitation Status: Full Code Family History Family History: Reviewed & Not Pertinent, Hypertension Parental Family History Reviewed: Yes Children Family History Reviewed: Yes Sibling(s) Family History Reviewed.: Yes Medication/Allergy Home Medications: Folic Acid [Folvite 1 mg Tablet] 1 mg PO DAILY 02/19/19 Hydroxyurea [Hydrea 500 mg Capsule] 1,500 mg PO DAILY 02/19/19 Oxycodone HCl [Oxy-Ir 5 mg Tablet] 10 mg PO Q4HP PRN 02/19/19 Allergies/Adverse Reactions: famotidine [From Pepcid] Allergy (Severe, Verified 05/03/19 14:14) Anaphylaxis ketorolac tromethamine [From Toradol] Allergy (Severe, Verified 05/03/19 14:14) levofloxacin [From Levaquin] Allergy (Severe, Verified 05/03/19 14:14) meperidine HCl [From Demerol] Allergy (Severe, Verified 05/03/19 14:14) morphine [Morphine] Allergy (Severe, Verified 05/03/19 14:14) tramadol HCl [From Ultram] Allergy (Severe, Verified 05/03/19 14:14) amoxicillin [Amoxicillin] Allergy (Verified 05/03/19 14:14) fentanyl [Fentanyl] Allergy (Verified 05/03/19 14:14) latex [Latex] Allergy (Verified 05/03/19 14:14) ondansetron HCl [From Zofran] Allergy (Verified 05/03/19 14:14) Pork/Porcine Containing Products Allergy (Verified 05/03/19 14:14) promethazine Allergy (Verified 05/03/19 14:14) Review of Systems Constitutional: ABSENT: chills, fever(s), headache(s), weight gain, weight loss Eyes: ABSENT: visual disturbances Ears: ABSENT: hearing changes Cardiovascular: ABSENT: chest pain, dyspnea on exertion, edema, orthropnea, palpitations Respiratory: ABSENT: cough, hemoptysis Gastrointestinal: ABSENT: abdominal pain, constipation, diarrhea, hematemesis, hematochezia, nausea, vomiting Genitourinary: ABSENT: dysuria, hematuria Musculoskeletal: ABSENT: joint swelling Integumentary: ABSENT: rash, wounds Neurological: ABSENT: abnormal gait, abnormal speech, confusion, dizziness, focal weakness, syncope Psychiatric: ABSENT: anxiety, depression, homidical ideation, suicidal ideation Endocrine: ABSENT: cold intolerance, heat intolerance, polydipsia, polyuria Hematologic/Lymphatic: ABSENT: easy bleeding, easy bruising Physical Exam Vital Signs: Temp Pulse Resp BP Pulse Ox 98.0 F 85 18 134/78 H 100 05/04/19 03:26 05/04/19 03:26 05/04/19 03:26 05/04/19 03:26 05/04/19 03:26 Intake & Output 05/03/19 05/04/19 05/05/19 06:59 06:59 06:59 Intake Total 2410 Balance 2410 Weight 85 kg General appearance: PRESENT: no acute distress, well-developed, well-nourished Head exam: PRESENT: atraumatic, normocephalic Eye exam: PRESENT: conjunctiva pink, EOMI, PERRLA. ABSENT: scleral icterus Ear exam: PRESENT: normal external ear exam Mouth exam: PRESENT: moist, tongue midline Neck exam: ABSENT: carotid bruit, JVD, lymphadenopathy, thyromegaly Respiratory exam: PRESENT: clear to auscultation anastasiya. ABSENT: rales, rhonchi, wheezes Cardiovascular exam: PRESENT: RRR. ABSENT: diastolic murmur, rubs, systolic murmur Pulses: PRESENT: normal dorsalis pedis pul Vascular exam: PRESENT: normal capillary refill GI/Abdominal exam: PRESENT: normal bowel sounds, soft. ABSENT: distended, guarding, mass, organolmegaly, rebound, tenderness Rectal exam: PRESENT: deferred Extremities exam: PRESENT: full ROM. ABSENT: calf tenderness, clubbing, pedal edema Neurological exam: PRESENT: alert, awake, oriented to person, oriented to place, oriented to time, oriented to situation, CN II-XII grossly intact. ABSENT: motor sensory deficit Psychiatric exam: PRESENT: appropriate affect, normal mood. ABSENT: homicidal ideation, suicidal ideation Skin exam: PRESENT: dry, intact, warm. ABSENT: cyanosis, rash Results Laboratory Results: 05/04/19 04:00 05/04/19 04:00 05/03/19 05/03/19 05/04/19 12:45 12:45 03:50 WBC 8.4 RBC 2.78 L Hgb 9.4 L Hct 27.0 L MCV 97 MCH 33.8 H MCHC 34.8 RDW 22.6 H Plt Count 230 Seg Neutrophils % Not Reportable Retic Count (auto) 10.32 H Sodium 139.3 Potassium 4.1 Chloride 104 Carbon Dioxide 27 Anion Gap 8 BUN 8 Creatinine 0.63 Est GFR ( Amer) > 60 Glucose 95 Calcium 8.8 Magnesium Total Bilirubin 3.0 H AST 44 Alkaline Phosphatase 104 Total Protein 8.4 H Albumin 4.4 Urine Color YELLOW Urine Appearance CLEAR Urine pH 7.0 Ur Specific [place] 1.010 Urine Protein NEGATIVE Urine Glucose (UA) NEGATIVE Urine Ketones NEGATIVE Urine Blood NEGATIVE Urine Nitrite NEGATIVE Ur Leukocyte Esterase NEGATIVE 05/04/19 05/04/19 04:00 04:00 WBC 9.1 RBC 2.86 L Hgb 9.7 L Hct 27.9 L MCV 97 MCH 33.8 H MCHC 34.7 RDW 21.1 H Plt Count 233 Seg Neutrophils % Not Reportable Retic Count (auto) Sodium 138.9 Potassium 4.0 Chloride 101 Carbon Dioxide 29 Anion Gap 9 BUN 7 Creatinine 0.64 Est GFR ( Amer) > 60 Glucose 115 H Calcium 8.8 Magnesium 2.1 Total Bilirubin AST Alkaline Phosphatase Total Protein Albumin Urine Color Urine Appearance Urine pH Ur Specific [place] Urine Protein Urine Glucose (UA) Urine Ketones Urine Blood Urine Nitrite Ur Leukocyte Esterase 05/03/19 05/03/19 12:45 12:45 Creatine Kinase 108 Troponin I < 0.012 Impressions: Chest X-Ray 05/03/19 11:38 IMPRESSION: NO ACUTE RADIOGRAPHIC FINDING IN THE CHEST. Assessment & Plan - Diagnosis (1) Sickle cell pain crisis Is this a current diagnosis for this admission?: Yes Plan: Sickle cell disease with pain crisis, plan for continued Dilaudid, we will DC the Percocet, continue with IV hydration. Add K pad for comfort, I added Sudafed as well as baclofen for priapism if patient has it, otherwise, will follow. 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 - Time Time Spent: Greater than 70 Minutes - Inpatient Certification Based on my medical assessment, after consideration of the patient's comorbidities, presenting symptoms, or acuity I expect that the services needed warrant INPATIENT care.: Yes I certify that my determination is in accordance with my understanding of Medicare's requirements for reasonable and necessary INPATIENT services [42 CFR 412.3e].: Yes Medical Necessity: Need Close Monitoring Due to Risk of Patient Decompensation, Need for Pain Control, Risk of Complication if Not Cared For in Hospital
[2019-05-04] MEDS: FOLIC ACID 1 MG TABLET PO SCH (09:57)
[2019-05-04] MEDS: HYDROXYUREA 500 MG CAPSULE PO SCH (09:57)
--- NOTE | 2019-05-04 13:22 | PDOC PROGRESS REPORT ---
Subjective Progress Note for:: 05/04/19 Reason For Visit: SICKLE CELL CRISIS,CHRONIC PAIN 05/04/19 Patient admitted for sickle cell and chronic pain management Physical Exam Vital Signs: Temp Pulse Resp BP Pulse Ox 98.2 F 79 16 123/79 100 05/04/19 11:54 05/04/19 11:54 05/04/19 11:54 05/04/19 11:54 05/04/19 11:54 Intake & Output 05/03/19 05/04/19 05/05/19 06:59 06:59 06:59 Intake Total 2410 260 Balance 2410 260 Weight 85 kg General appearance: PRESENT: no acute distress, other - Patient just received his analgesics and therefore somewhat sleepy Respiratory exam: PRESENT: clear to auscultation anastasiya. ABSENT: rales, rhonchi, wheezes Cardiovascular exam: PRESENT: RRR. ABSENT: diastolic murmur, rubs, systolic murmur Neurological exam: PRESENT: alert, awake, oriented to person, oriented to place, oriented to time, oriented to situation, CN II-XII grossly intact. ABSENT: motor sensory deficit Psychiatric exam: PRESENT: flat affect Results Laboratory Results: 05/04/19 04:00 05/04/19 04:00 05/03/19 05/03/19 05/04/19 12:45 12:45 03:50 WBC 8.4 RBC 2.78 L Hgb 9.4 L Hct 27.0 L MCV 97 MCH 33.8 H MCHC 34.8 RDW 22.6 H Plt Count 230 Seg Neutrophils % Not Reportable Retic Count (auto) 10.32 H Sodium 139.3 Potassium 4.1 Chloride 104 Carbon Dioxide 27 Anion Gap 8 BUN 8 Creatinine 0.63 Est GFR ( Amer) > 60 Glucose 95 Calcium 8.8 Magnesium Total Bilirubin 3.0 H AST 44 Alkaline Phosphatase 104 Total Protein 8.4 H Albumin 4.4 Urine Color YELLOW Urine Appearance CLEAR Urine pH 7.0 Ur Specific [place] 1.010 Urine Protein NEGATIVE Urine Glucose (UA) NEGATIVE Urine Ketones NEGATIVE Urine Blood NEGATIVE Urine Nitrite NEGATIVE Ur Leukocyte Esterase NEGATIVE 05/04/19 05/04/19 04:00 04:00 WBC 9.1 RBC 2.86 L Hgb 9.7 L Hct 27.9 L MCV 97 MCH 33.8 H MCHC 34.7 RDW 21.1 H Plt Count 233 Seg Neutrophils % Not Reportable Retic Count (auto) Sodium 138.9 Potassium 4.0 Chloride 101 Carbon Dioxide 29 Anion Gap 9 BUN 7 Creatinine 0.64 Est GFR ( Amer) > 60 Glucose 115 H Calcium 8.8 Magnesium 2.1 Total Bilirubin AST Alkaline Phosphatase Total Protein Albumin Urine Color Urine Appearance Urine pH Ur Specific [place] Urine Protein Urine Glucose (UA) Urine Ketones Urine Blood Urine Nitrite Ur Leukocyte Esterase 05/03/19 05/03/19 12:45 12:45 Creatine Kinase 108 Troponin I < 0.012 Impressions: Chest X-Ray 05/03/19 11:38 IMPRESSION: NO ACUTE RADIOGRAPHIC FINDING IN THE CHEST. Assessment and Plan - Diagnosis (1) Sickle cell pain crisis Is this a current diagnosis for this admission?: Yes (2) Chronic pain Is this a current diagnosis for this admission?: Yes (3) Depression Qualifiers: Is this a current diagnosis for this admission?: Yes (4) Methadone dependence Is this a current diagnosis for this admission?: Yes (5) Opiate dependence, continuous Is this a current diagnosis for this admission?: Yes (6) Sickle-cell disease with pain Is this a current diagnosis for this admission?: Yes - Plan Summary Summary: Patient will be admitted and treated with his usual pain medications. Oncology will be on service tomorrow to resume medical management of his chronic pain and sickle cell crisis pain Patient is medically stable to move to the floor I Did call Dr. Bhargav rollins to discuss his pain management and appreciate her information 05/04/2019 Patient's vital signs are stable heart rate of 81 blood pressure 123/79 BC appears stable hemoglobin 9.7 Chemistry panel grossly normal Patient seen by hematology today and will manage his pain medication his sickle cell disease Patient states that he is having less pain today compared to admission - Time Time Spent with patient: 15-24 minutes
[2019-05-05] MEDS: DIPHENHYDRAMINE HCL 50 MG/ML VIAL IV PRN ×6 (01:09→23:11)
[2019-05-05] MEDS: HYDROMORPHONE HCL INJ/PF 2 MG/ML AMPULE IV PRN ×11 (01:09→23:13)
[2019-05-05] MEDS: METHADONE HCL 10 MG TABLET PO SCH ×3 (05:41→21:59)
[2019-05-05] MEDS: NORMAL SALINE 1000 ML 1,000 ML IV PRN ×2 (05:43→14:13)
[2019-05-05] MEDS ORDERED: BENZOCAINE/MENTHOL SORE THROAT LOZENGE BUCCAL PRN (08:13)
[2019-05-05] MEDS ORDERED: OXYCODONE HCL IR 5 MG TABLET PO PRN (08:14)
--- NOTE | 2019-05-05 08:17 | PDOC PROGRESS REPORT ---
Subjective Progress Note for:: 05/05/19 Subjective:: Patient complains of a sore throat and asks for cough drop. Otherwise, improved from yesterday. ROS: Dyspnea improved. No constipation. Pain all over continues. Reason For Visit: SICKLE CELL CRISIS,CHRONIC PAIN Physical Exam Vital Signs: Temp Pulse Resp BP Pulse Ox 98.5 F 83 16 135/86 H 100 05/04/19 16:11 05/05/19 07:00 05/04/19 16:11 05/04/19 16:11 05/04/19 16:11 Intake & Output 05/04/19 05/05/19 05/06/19 06:59 06:59 06:59 Intake Total 2410 3381 Output Total 2825 Balance 2410 556 Weight 85 kg 93 kg General appearance: PRESENT: no acute distress, well-developed, well-nourished Head exam: PRESENT: normocephalic Respiratory exam: PRESENT: clear to auscultation anastasiya, unlabored Cardiovascular exam: PRESENT: RRR Extremities exam: PRESENT: other - SCDs in place.. ABSENT: pedal edema Neurological exam: PRESENT: alert, awake Psychiatric exam: PRESENT: appropriate affect Skin exam: PRESENT: normal color Results Laboratory Results: 05/04/19 04:00 05/04/19 04:00 05/03/19 05/03/19 12:45 12:45 Creatine Kinase 108 Troponin I < 0.012 Impressions: Chest X-Ray 05/03/19 11:38 IMPRESSION: NO ACUTE RADIOGRAPHIC FINDING IN THE CHEST. Assessment & Plan - Diagnosis (1) Sickle cell pain crisis Is this a current diagnosis for this admission?: Yes Plan: Continue current pain management and continue O2 and fluids. Encouraged patient to walk in [place] when able. 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 No indication for transfusion. (3) Pharyngitis Qualifiers: Pharyngitis/tonsillitis etiology: unspecified etiology Qualified Code(s): J02.9 - Acute pharyngitis, unspecified Is this a current diagnosis for this admission?: Yes Plan: I will order cepacol lozenge. - Time Time Spent with patient: 15-24 minutes
[2019-05-05] MEDS: HYDROXYUREA 500 MG CAPSULE PO SCH (10:14)
[2019-05-05] MEDS: FOLIC ACID 1 MG TABLET PO SCH ×2 (10:14→10:35)
--- NOTE | 2019-05-05 13:18 | RADIOLOGY REPORT (SQ) ---
EXAM DESCRIPTION: CHEST SINGLE VIEW COMPLETED DATE/TIME: 05/05/2019 1:06 pm REASON FOR STUDY: SSC, chest pain, dyspnea COMPARISON: Chest films 05/03/2019, 05/02/2019 CT chest 02/05/2019 EXAM PARAMETERS: NUMBER OF VIEWS: One view. TECHNIQUE: Single frontal radiographic view of the chest acquired. RADIATION DOSE: NA LIMITATIONS: None. FINDINGS: LUNGS AND PLEURA: Since the prior studies, the patient has developed consolidation at the right lung base worrisome for pneumonia. Chronic appearing volume loss and consolidation with air bronchograms in the left retrocardiac region . No pneumothorax. No pleural effusion. MEDIASTINUM AND HILAR STRUCTURES: No masses. Contour normal. HEART AND VASCULAR STRUCTURES: Stable mild cardiomegaly BONES: No acute findings. HARDWARE: Unchanged left-sided permanent central line tip superior vena cava OTHER: No other significant finding. IMPRESSION: New right basilar airspace disease worrisome for pneumonia. TECHNICAL DOCUMENTATION: JOB ID: [id number] [employer]- All Rights Reserved Reading location - IP/workstation name: [email or web address]
[2019-05-05 15:55] LABS: HEMATOCRIT 25.7 % (37.9-51.0); HEMOGLOBIN 8.9 g/dL (13.5-17.0); MEAN CORPUSCULAR HEMOGLOBIN 33.4 pg (27.0-33.4); MEAN CORPUSCULAR HGB CONC 34.6 g/dL (32.0-36.0); MEAN CORPUSCULAR VOLUME 97 fl (80-97); PLATELET COUNT 203 10^3/uL (150-450); RED BLOOD COUNT 2.65 10^6/uL (4.35-5.55); RED CELL DISTRIBUTION WIDTH 19.6 % (11.5-14.0); WHITE BLOOD COUNT 6.4 10^3/uL (4.0-10.5)
[2019-05-05 17:23] LABS: ALBUMIN 3.5 g/dL (3.5-5.0); ALKALINE PHOSPHATASE 81 U/L (38-126); ANION GAP 7 (5-19); ASPARTATE AMINO TRANSFERASE 25 U/L (17-59); BILIRUBIN,DIRECT 0.1 mg/dL (0.0-0.4); BILIRUBIN,TOTAL 1.3 mg/dL (0.2-1.3); BLOOD UREA NITROGEN 7 mg/dL (7-20); CALCIUM 8.2 mg/dL (8.4-10.2); CARBON DIOXIDE 29 mmol/L (22-30); CHLORIDE 103 mmol/L (98-107); GLUCOSE 117 mg/dL (75-110); POTASSIUM 4.1 mmol/L (3.6-5.0); TOTAL PROTEIN 7.3 g/dL (6.3-8.2)
--- NOTE | 2019-05-05 18:37 | PDOC TRANSFER SUMMARY ---
General Admission Date/PCP: 05/03/19 17:51 BETH STAPLETON MD Admission Date: 05/03/19 Transfer Date: 05/05/19 Accepting Facility: [facility] Accepting Physician: Dr. Mulligan Resuscitation Status: Full Code - Transfer Diagnosis (1) Sickle cell pain crisis Is this a current diagnosis for this admission?: Yes (2) Acute chest syndrome Is this a current diagnosis for this admission?: Yes (3) Chronic pain Is this a current diagnosis for this admission?: Yes (4) Depression Is this a current diagnosis for this admission?: Yes (5) Methadone dependence Is this a current diagnosis for this admission?: Yes (6) Opiate dependence, continuous Is this a current diagnosis for this admission?: Yes - Transfer Medications Home Medications: Folic Acid [Folvite 1 mg Tablet] 1 mg PO DAILY 02/19/19 Hydroxyurea [Hydrea 500 mg Capsule] 1,500 mg PO DAILY 02/19/19 Oxycodone HCl [Oxy-Ir 5 mg Tablet] 10 mg PO Q4HP PRN 02/19/19 Transfer Medications: Current Medications Acetaminophen (Tylenol 325 Mg Tablet) 650 mg PO Q4HP PRN PRN Reason: FOR HEADACHE OR PAIN Stop: 06/02/19 18:17 Baclofen (Baclofen 10 Mg Tablet) 10 mg PO BIDP PRN PRN Reason: PRIAPISM Stop: 06/03/19 07:45 Diphenhydramine HCl (Benadryl Inj 50 Mg/1 Ml Vial) 25 mg IV Q4HP PRN PRN Reason: ITCHING Stop: 06/02/19 18:51 Last Admin: 05/05/19 14:14 Dose: 25 mg Documented by: Folic Acid (Folvite 1 Mg Tablet) 1 mg PO DAILY VIANEY Stop: 06/04/19 09:59 Last Admin: 05/05/19 10:35 Dose: Not Given Documented by: Hydromorphone HCl (Dilaudid Inj/Pf 2 Mg/Ml Ampule) 3 mg IV Q2HP PRN PRN Reason: FOR PAIN Stop: 05/10/19 18:50 Last Admin: 05/05/19 16:35 Dose: 3 mg Documented by: Hydroxyurea (Hydrea 500 Mg Capsule) 1,500 mg PO DAILY VIANEY Stop: 06/03/19 09:59 Last Admin: 01/14/20 10:14 Dose: 1,500 mg Documented by: Sodium Chloride (Nacl 0.9% 1000 Ml Iv Soln) 1,000 mls @ 125 mls/hr IV CONTINUOUS PRN PRN Reason: THIS MED IS NOT "PRN" Stop: 06/02/19 18:17 Last Admin: 05/05/19 14:13 Dose: 125 mls/hr Documented by: Ceftriaxone Sodium/Dextrose (Rocephin Rtu 1 Gm/D5w 50 Ml Premix) 1 gm in 50 mls @ 100 mls/hr IV DAILY VIANEY Stop: 05/12/19 18:29 Azithromycin 500 mg/ Dextrose 250 mls @ 250 mls/hr IV DAILY VIANEY Stop: 05/12/19 18:29 Polyethylene Glycol (Miralax Powder 17 Gm/Packet) 17 gm PO DAILYP PRN PRN Reason: FOR CONSTIPATION Stop: 06/03/19 07:43 Pseudoephedrine HCl (Sudafed 30 Mg Tablet) 60 mg PO Q6HP PRN PRN Reason: FOR PRIAPISM Stop: 06/03/19 07:44 Senna/Docusate Sodium (Senna Plus Tablet) 1 each PO BIDP PRN PRN Reason: FOR CONSTIPATION Stop: 06/03/19 07:43 Throat Lozenges (Chloraseptic Sore Throat Lozenge) 1 each BUCCAL Q4HP PRN PRN Reason: FOR SORE THROAT Stop: 06/04/19 08:12 - Allergies Allergies/Adverse Reactions: famotidine [From Pepcid] Allergy (Severe, Verified 05/03/19 14:14) Anaphylaxis ketorolac tromethamine [From Toradol] Allergy (Severe, Verified 05/03/19 14:14) levofloxacin [From Levaquin] Allergy (Severe, Verified 05/03/19 14:14) meperidine HCl [From Demerol] Allergy (Severe, Verified 05/03/19 14:14) morphine [Morphine] Allergy (Severe, Verified 05/03/19 14:14) tramadol HCl [From Ultram] Allergy (Severe, Verified 05/03/19 14:14) amoxicillin [Amoxicillin] Allergy (Verified 05/03/19 14:14) fentanyl [Fentanyl] Allergy (Verified 05/03/19 14:14) latex [Latex] Allergy (Verified 05/03/19 14:14) ondansetron HCl [From Zofran] Allergy (Verified 05/03/19 14:14) Pork/Porcine Containing Products Allergy (Verified 05/03/19 14:14) promethazine Allergy (Verified 05/03/19 14:14) - Diet/Activity Discharge Diet: Regular Discharge Activity: Activity As Tolerated Hospital Course Hospital Course: H&P by Roger Gillespie PA-C: MARISA GARBER is a 38 year old male with sickle cell disease. Patient states he has been hurting since the beginning of the new year and then has been into the emergency room on multiple occasions for joint pain. Patient states the medicine he takes as an outpatient has not helped therefore he is come into the emergency room. Reticulocyte count is 10.32. It looks like he has been as high as 14.55 and as low as 5.09. Average appears to be about 10 Electrolytes are grossly normal total protein is a little high 8.4 total bilirubin slightly high at 3.0 renal functions are normal Course: The patient was admitted to [facility] [place] on continuous cardiac telemetry. His home regimen of methadone 5 mg every 8 hours, hydroxyurea, and folate acid were continued. Additionally, he was provided aggressive IV fluid resuscitation, supplemental oxygen, IV Dilaudid, Tylenol, Benadryl, baclofen, and a heating pad. Baclofen and pseudoephedrine are available as needed for priapism as he has had a history of the same; fortunately has not required these medications this admission. Today on rounds, the patient was noted to be splinting his right chest wall using a pillow, tachypneic, and diaphoretic. He is also noted to be on 4 L supplemental oxygen via nasal cannula; he is not home O2 dependent. Patient has remained afebrile throughout his admission with a normal WBC. Chest x-ray today does reveal a right lower lobe consolidation with pleural effusion and appears to have a chronic appearing volume loss with consolidation to the left retrocardiac region. As the patient has no other objective signs to indicate community-acquired pneumonia, I contacted [facility] to discuss transfer for acute chest syndrome and evaluation for possible exchange transfusion. During admission December 2018; patient developed similar symptoms and at that time declined transfer to [facility] despite urgings by both hematology and hospitalist services. I did discuss the chest x-ray findings and recommendations to transfer to [facility] with the patient; he is agreeable to transfer at this time. He is empirically placed on IV Rocephin and azithromycin, although, I do have low clinical suspicion for pneumonia. Blood cultures and sputum cultures pending. Discussed the patient with Dr. Mulligan who has graciously agreed to accept the patient into his service with hematology consulting. Physical Exam Vital Signs: Temp Pulse Resp BP Pulse Ox 98.4 F 80 16 125/74 100 05/05/19 11:59 05/05/19 14:00 05/05/19 11:59 05/05/19 11:59 05/05/19 11:59 Intake & Output 05/04/19 05/05/19 05/06/19 06:59 06:59 06:59 Intake Total 2410 3381 1120 Output Total 2825 Balance 2410 556 1120 Weight 85 kg 93 kg General appearance: PRESENT: cooperative, mild distress, well-developed, well- nourished - Overweight Head exam: PRESENT: atraumatic, normocephalic Eye exam: PRESENT: conjunctiva pink, EOMI, PERRLA. ABSENT: scleral icterus Ear exam: PRESENT: normal external ear exam Mouth exam: PRESENT: moist, tongue midline Neck exam: ABSENT: carotid bruit, JVD, lymphadenopathy, thyromegaly Respiratory exam: PRESENT: decreased breath sounds - Bibasilar, symmetrical, unlabored, other - Supplemental oxygen via nasal cannula; right chest wall splinting with pillow. ABSENT: rales, rhonchi, wheezes Cardiovascular exam: PRESENT: RRR, +S1, +S2. ABSENT: diastolic murmur, rubs, systolic murmur Pulses: PRESENT: normal dorsalis pedis pul Vascular exam: PRESENT: normal capillary refill GI/Abdominal exam: PRESENT: normal bowel sounds, soft. ABSENT: distended, guarding, mass, organolmegaly, rebound, tenderness Rectal exam: PRESENT: deferred Extremities exam: PRESENT: full ROM. ABSENT: calf tenderness, clubbing, pedal edema Musculoskeletal exam: PRESENT: ambulatory Neurological exam: PRESENT: alert, awake, oriented to person, oriented to place, oriented to time, oriented to situation, CN II-XII grossly intact. ABSENT: motor sensory deficit Psychiatric exam: PRESENT: appropriate affect, normal mood. ABSENT: homicidal ideation, suicidal ideation Skin exam: PRESENT: dry, intact, warm, other - Diaphoretic. ABSENT: cyanosis, rash Results Laboratory Results: 05/05/19 15:25 05/05/19 16:30 05/05/19 05/05/19 15:25 16:30 WBC 6.4 RBC 2.65 L Hgb 8.9 L Hct 25.7 L MCV 97 MCH 33.4 MCHC 34.6 RDW 19.6 H Plt Count 203 Sodium 138.8 Potassium 4.1 Chloride 103 Carbon Dioxide 29 Anion Gap 7 BUN 7 Creatinine 0.55 Est GFR ( Amer) > 60 Glucose 117 H Calcium 8.2 L Total Bilirubin 1.3 AST 25 Alkaline Phosphatase 81 Total Protein 7.3 Albumin 3.5 05/03/19 05/03/19 12:45 12:45 Creatine Kinase 108 Troponin I < 0.012 Impressions: Chest X-Ray 05/05/19 00:00 IMPRESSION: New right basilar airspace disease worrisome for pneumonia. Plan Discharge Plan: Discussed the patient with Dr. Mulligan, [facility], who is graciously a greed to except the patient into his service with hematology consulting upon arrival due to concern for acute chest syndrome. Time Spent: Greater than 30 Minutes
[2019-05-05] MEDS: AZITHROMYCIN 500 MG in DEXTROSE 5%-WATER 250 ML IV SCH (20:21)
[2019-05-05] MEDS ORDERED: METHADONE HCL 1 MG/ML 30 ML BOTTLE PO SCH (22:00)
[2019-05-06] MEDS: HYDROMORPHONE HCL INJ/PF 2 MG/ML AMPULE IV PRN ×9 (02:12→23:12)
[2019-05-06] MEDS: CEFTRIAXONE 1 GM/D5W RTU 1 GM/50 ML RTUPB IV SCH ×2 (02:38→15:58)
[2019-05-06] MEDS: DIPHENHYDRAMINE HCL 50 MG/ML VIAL IV PRN ×4 (04:37→20:21)
[2019-05-06] MEDS: METHADONE HCL 10 MG TABLET PO SCH ×3 (05:03→23:14)
[2019-05-06 05:43] LABS: ABSOLUTE RETICS # 0.137 10^6/uL (0.028-0.122); HEMATOCRIT 24.3 % (37.9-51.0); HEMOGLOBIN 8.6 g/dL (13.5-17.0); MEAN CORPUSCULAR HEMOGLOBIN 33.7 pg (27.0-33.4); MEAN CORPUSCULAR HGB CONC 35.3 g/dL (32.0-36.0); MEAN CORPUSCULAR VOLUME 96 fl (80-97); PLATELET COUNT 214 10^3/uL (150-450); RED BLOOD COUNT 2.55 10^6/uL (4.35-5.55); RED CELL DISTRIBUTION WIDTH 18.9 % (11.5-14.0); RETICULOCYTE COUNT (AUTO) 5.37 % (0.66-2.85); WHITE BLOOD COUNT 6.4 10^3/uL (4.0-10.5)
[2019-05-06 06:03] LABS: ANION GAP 9 (5-19); BLOOD UREA NITROGEN 6 mg/dL (7-20); CALCIUM 8.5 mg/dL (8.4-10.2); CARBON DIOXIDE 31 mmol/L (22-30); CHLORIDE 100 mmol/L (98-107); GLUCOSE 92 mg/dL (75-110); POTASSIUM 4.2 mmol/L (3.6-5.0)
[2019-05-06] MEDS: NORMAL SALINE 1000 ML 1,000 ML IV PRN ×2 (07:51→15:58)
--- NOTE | 2019-05-06 08:45 | PDOC PROGRESS REPORT ---
Subjective Progress Note for:: 05/06/19 Subjective:: Yesterday patient had worsened pain and was tachypneic, tachycardic and hypoxic, plans were made to transfer him, this morning he seems a little bit better. Reason For Visit: SICKLE CELL CRISIS,CHRONIC PAIN Physical Exam Vital Signs: Temp Pulse Resp BP Pulse Ox 98.4 F 81 16 125/74 100 05/05/19 11:59 05/06/19 07:00 05/05/19 11:59 05/05/19 11:59 05/05/19 11:59 Intake & Output 05/05/19 05/06/19 05/07/19 06:59 06:59 06:59 Intake Total 3381 2420 300 Output Total 2825 2200 Balance 556 220 300 Weight 93 kg 77.7 kg General appearance: PRESENT: no acute distress, well-developed, well-nourished Head exam: PRESENT: atraumatic, normocephalic Eye exam: PRESENT: conjunctiva pink, EOMI, PERRLA. ABSENT: scleral icterus Ear exam: PRESENT: normal external ear exam Mouth exam: PRESENT: moist, tongue midline Neck exam: ABSENT: carotid bruit, JVD, lymphadenopathy, thyromegaly Respiratory exam: PRESENT: clear to auscultation anastasiya. ABSENT: rales, rhonchi, wheezes Cardiovascular exam: PRESENT: RRR. ABSENT: diastolic murmur, rubs, systolic murmur Pulses: PRESENT: normal dorsalis pedis pul Vascular exam: PRESENT: normal capillary refill GI/Abdominal exam: PRESENT: normal bowel sounds, soft. ABSENT: distended, guarding, mass, organolmegaly, rebound, tenderness Rectal exam: PRESENT: deferred Extremities exam: PRESENT: full ROM. ABSENT: calf tenderness, clubbing, pedal edema Neurological exam: PRESENT: alert, awake, oriented to person, oriented to place, oriented to time, oriented to situation, CN II-XII grossly intact. ABSENT: motor sensory deficit Psychiatric exam: PRESENT: appropriate affect, normal mood. ABSENT: homicidal ideation, suicidal ideation Skin exam: PRESENT: dry, intact, warm. ABSENT: cyanosis, rash Results Laboratory Results: 05/06/19 04:48 05/06/19 04:48 05/05/19 05/05/19 05/06/19 15:25 16:30 04:48 WBC 6.4 6.4 RBC 2.65 L 2.55 L Hgb 8.9 L 8.6 L Hct 25.7 L 24.3 L MCV 97 96 MCH 33.4 33.7 H MCHC 34.6 35.3 RDW 19.6 H 18.9 H Plt Count 203 214 Retic Count (auto) 5.37 H Sodium 138.8 Potassium 4.1 Chloride 103 Carbon Dioxide 29 Anion Gap 7 BUN 7 Creatinine 0.55 Est GFR ( Amer) > 60 Glucose 117 H Calcium 8.2 L Total Bilirubin 1.3 AST 25 Alkaline Phosphatase 81 Total Protein 7.3 Albumin 3.5 05/06/19 04:48 WBC RBC Hgb Hct MCV MCH MCHC RDW Plt Count Retic Count (auto) Sodium 139.7 Potassium 4.2 Chloride 100 Carbon Dioxide 31 H Anion Gap 9 BUN 6 L Creatinine 0.58 Est GFR ( Amer) > 60 Glucose 92 Calcium 8.5 Total Bilirubin AST Alkaline Phosphatase Total Protein Albumin 05/03/19 05/03/19 12:45 12:45 Creatine Kinase 108 Troponin I < 0.012 Impressions: Chest X-Ray 05/05/19 00:00 IMPRESSION: New right basilar airspace disease worrisome for pneumonia. Assessment & Plan - Diagnosis (1) Sickle cell pain crisis Is this a current diagnosis for this admission?: Yes Plan: Continue with current pain regimen, yesterday increases pain to 4 mg but he did not want to get the 4 mg because it made him too drowsy so he was given 3 mg dosing. Otherwise continue with other supportive care. 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 - Time Time Spent with patient: 35 or more minutes
[2019-05-06] MEDS: HYDROXYUREA 500 MG CAPSULE PO SCH (10:21)
[2019-05-06] MEDS: FOLIC ACID 1 MG TABLET PO SCH (10:22)
--- NOTE | 2019-05-06 14:49 | PDOC PROGRESS REPORT ---
Subjective Progress Note for:: 05/06/19 Subjective:: The patient is a 38-year-old male with a past medical history of sickle cell and opiate dependent chronic pain who was admitted 05/03/2019 with sickle cell crisis pain. The patient was seen on morning rounds. He was found resting in bed on supplemental oxygen via nasal cannula at 4 L/min. Discontinued. Tachypneic with shallow respirations but without diaphoresis today. Patient reports that his pain remains stable; currently well controlled with Dilaudid 3 mg. Long discussion had regarding concern for acute chest syndrome. Discussed signs and symptoms of pneumonia which the patient does not have at this time. Did advise that he was being empirically treated with IV antibiotics x48 hours and then they would be discontinued unless there were further indications for continued therapy. I did encourage the patient to reconsider recommended transfer to [facility]; he continues to decline at this time stating that after discussion with Dr. Medellin he feels that his chest x-ray is demonstrating pneumonia only. He is strongly encouraged to report any worsening chest discomfort or dyspnea at which time we may revisit recommended transfer. He denies fever, chills, orthopnea, cough, abdominal pain, nausea vomiting and diarrhea. He does endorse chest discomfort, worsened with inspiration, and dyspnea at rest. He has no other questions or concerns at this time. Nursing reports that the patient has actually been declining the 4 mg Dilaudid as was previously ordered. No other concerns per nursing. Reason For Visit: SICKLE CELL CRISIS,CHRONIC PAIN Physical Exam Vital Signs: Temp Pulse Resp BP Pulse Ox 98.4 F 81 16 125/74 100 05/05/19 11:59 05/06/19 07:00 05/05/19 11:59 05/05/19 11:59 05/05/19 11:59 Intake & Output 05/05/19 05/06/19 05/07/19 06:59 06:59 06:59 Intake Total 3381 2420 300 Output Total 2825 2200 Balance 556 220 300 Weight 93 kg 77.7 kg General appearance: PRESENT: no acute distress, well-developed, well-nourished - Overweight Head exam: PRESENT: atraumatic, normocephalic Eye exam: PRESENT: conjunctiva pink, EOMI, PERRLA. ABSENT: scleral icterus Ear exam: PRESENT: normal external ear exam Mouth exam: PRESENT: moist, tongue midline Respiratory exam: PRESENT: clear to auscultation anastasiya, decreased breath sounds - Bibasilar, symmetrical, tachypnea - Shallow, other - Supplemental oxygen by nasal cannula. ABSENT: rales, rhonchi, wheezes Cardiovascular exam: PRESENT: RRR. ABSENT: diastolic murmur, rubs, systolic murmur Pulses: PRESENT: normal dorsalis pedis pul Vascular exam: PRESENT: normal capillary refill Rectal exam: PRESENT: deferred Extremities exam: PRESENT: full ROM. ABSENT: calf tenderness, clubbing, pedal edema Musculoskeletal exam: PRESENT: ambulatory Neurological exam: PRESENT: alert, awake, oriented to person, oriented to place, oriented to time, oriented to situation, CN II-XII grossly intact. ABSENT: motor sensory deficit Psychiatric exam: PRESENT: appropriate affect, normal mood. ABSENT: homicidal ideation, suicidal ideation Skin exam: PRESENT: dry, intact, warm. ABSENT: cyanosis, rash Results Laboratory Results: 05/06/19 04:48 05/06/19 04:48 05/05/19 05/05/19 05/06/19 15:25 16:30 04:48 WBC 6.4 6.4 RBC 2.65 L 2.55 L Hgb 8.9 L 8.6 L Hct 25.7 L 24.3 L MCV 97 96 MCH 33.4 33.7 H MCHC 34.6 35.3 RDW 19.6 H 18.9 H Plt Count 203 214 Retic Count (auto) 5.37 H Sodium 138.8 Potassium 4.1 Chloride 103 Carbon Dioxide 29 Anion Gap 7 BUN 7 Creatinine 0.55 Est GFR ( Amer) > 60 Glucose 117 H Calcium 8.2 L Total Bilirubin 1.3 AST 25 Alkaline Phosphatase 81 Total Protein 7.3 Albumin 3.5 05/06/19 04:48 WBC RBC Hgb Hct MCV MCH MCHC RDW Plt Count Retic Count (auto) Sodium 139.7 Potassium 4.2 Chloride 100 Carbon Dioxide 31 H Anion Gap 9 BUN 6 L Creatinine 0.58 Est GFR ( Amer) > 60 Glucose 92 Calcium 8.5 Total Bilirubin AST Alkaline Phosphatase Total Protein Albumin 05/03/19 05/03/19 12:45 12:45 Creatine Kinase 108 Troponin I < 0.012 Impressions: Chest X-Ray 05/05/19 00:00 IMPRESSION: New right basilar airspace disease worrisome for pneumonia. Assessment and Plan - Diagnosis (1) Sickle cell pain crisis Is this a current diagnosis for this admission?: Yes Plan: Patient is admitted to [facility] on continuous cardiac telemetry. He is provided generous IV fluids. Supplemental oxygen. Hematology is consulted; pain medications per Dr. Medellin. Continue folic acid and hydroxyurea. Monitor serial hemoglobin and transfuse as needed. (2) Acute chest syndrome Is this a current diagnosis for this admission?: Yes Plan: CXR showed a dense right lower lobe consolidation with pleural effusion yesterday. Although the radiologist comments regarding possible pneumonia, the patient is afebrile with normal WBCs and no clinical indications of pneumonia (no cough, clear lung sounds). Due to concern for acute chest syndrome, arrangements were made for the patient to transfer to [facility] for evaluation by their hematology services in consideration of possible exchange transfusion. Patient was provided a bed offer at 2 AM, unfortunately, the patient has declined transfer at this time as he believes that he has pneumonia. Long discussion had with the patient today that he is empirically being treated for pneumonia with IV antibiotics for possible superimposed pneumonia, however, pneumonia is very unlikely as mentioned above. He was again encouraged to consider transfer to [facility]. He declines at this time stating that he feels comfortable remaining here after conversation with hematology. Continue management as above. [facility] transfer has been canceled. Low suspicion for pneumonia; will discontinue IV antibiotics at 48 hours if he remains afebrile with normal WBC. (3) Chronic pain Is this a current diagnosis for this admission?: Yes Plan: Pain management per hematology. (4) Depression Qualifiers: Is this a current diagnosis for this admission?: Yes Plan: Stable. Recommend SSRI; declined at this time. (5) Methadone dependence Is this a current diagnosis for this admission?: Yes Plan: Continues on home dose methadone (6) Opiate dependence, continuous Is this a current diagnosis for this admission?: Yes Plan: As above. - Time Time Spent with patient: 35 or more minutes Medications reviewed and adjusted accordingly: Yes Anticipated discharge: [facility]
[2019-05-06] MEDS: AZITHROMYCIN 500 MG in DEXTROSE 5%-WATER 250 ML IV SCH (17:54)
[2019-05-07] MEDS: DIPHENHYDRAMINE HCL 50 MG/ML VIAL IV PRN ×5 (01:22→20:11)
[2019-05-07] MEDS: HYDROMORPHONE HCL INJ/PF 2 MG/ML AMPULE IV PRN ×10 (01:23→22:51)
[2019-05-07] MEDS: METHADONE HCL 10 MG TABLET PO SCH ×3 (05:49→21:57)
[2019-05-07] MEDS: NORMAL SALINE 1000 ML 1,000 ML IV PRN ×3 (05:51→21:58)
[2019-05-07 07:15] LABS: HEMATOCRIT 23.8 % (37.9-51.0); HEMOGLOBIN 8.3 g/dL (13.5-17.0); MEAN CORPUSCULAR HGB CONC 34.8 g/dL (32.0-36.0); MEAN CORPUSCULAR VOLUME 95 fl (80-97); PLATELET COUNT 212 10^3/uL (150-450); RED BLOOD COUNT 2.51 10^6/uL (4.35-5.55); RED CELL DISTRIBUTION WIDTH 19.6 % (11.5-14.0); WHITE BLOOD COUNT 5.9 10^3/uL (4.0-10.5)
[2019-05-07 07:27] LABS: ALBUMIN 3.6 g/dL (3.5-5.0); ALKALINE PHOSPHATASE 108 U/L (38-126); ANION GAP 7 (5-19); ASPARTATE AMINO TRANSFERASE 35 U/L (17-59); BILIRUBIN,DIRECT 0.2 mg/dL (0.0-0.4); BLOOD UREA NITROGEN 7 mg/dL (7-20); CALCIUM 8.5 mg/dL (8.4-10.2); CARBON DIOXIDE 31 mmol/L (22-30); CHLORIDE 101 mmol/L (98-107); GLUCOSE 97 mg/dL (75-110); POTASSIUM 4.4 mmol/L (3.6-5.0); TOTAL PROTEIN 7.5 g/dL (6.3-8.2)
[2019-05-07 08:03] LABS: ABSOLUTE LYMPHOCYTES# (MANUAL) 1.5 10^3/uL (0.5-4.7); ABSOLUTE MONOCYTES # (MANUAL) 0.6 10^3/uL (0.1-1.4); BASOPHILS % (MANUAL) 0 % (0-2); EOSINOPHILS % (MANUAL) 3 % (0-6); LYMPHOCYTES % (MANUAL) 26 % (13-45); MONOCYTES % (MANUAL) 11 % (3-13); SEGMENTED NEUTROPHILS % (MAN) 60 % (42-78); TOTAL CELLS COUNTED 100
[2019-05-07 08:05] LABS: ANISOCYTOSIS 2+; TARGET CELLS 1+
[2019-05-07 08:06] LABS: OVALOCYTES 1+; PLATELET COMMENT ADEQUATE; POLYCHROMASIA 1+; SICKLE RED CELLS SLIGHT
--- NOTE | 2019-05-07 08:09 | PDOC PROGRESS REPORT ---
Subjective Progress Note for:: 05/07/19 Subjective:: Patient feeling a little bit better from the chest pain today Reason For Visit: SICKLE CELL CRISIS,CHRONIC PAIN Physical Exam Vital Signs: Temp Pulse Resp BP Pulse Ox 98.1 F 78 18 123/83 100 05/07/19 03:43 05/07/19 07:00 05/07/19 03:43 05/07/19 03:43 05/07/19 03:43 Intake & Output 05/06/19 05/07/19 05/08/19 06:59 06:59 06:59 Intake Total 2420 3895 250 Output Total 2200 2500 Balance 220 1395 250 Weight 77.7 kg 79 kg General appearance: PRESENT: no acute distress, well-developed, well-nourished Head exam: PRESENT: atraumatic, normocephalic Eye exam: PRESENT: conjunctiva pink, EOMI, PERRLA. ABSENT: scleral icterus Ear exam: PRESENT: normal external ear exam Mouth exam: PRESENT: moist, tongue midline Neck exam: ABSENT: carotid bruit, JVD, lymphadenopathy, thyromegaly Respiratory exam: PRESENT: clear to auscultation anastasiya. ABSENT: rales, rhonchi, wheezes Cardiovascular exam: PRESENT: RRR. ABSENT: diastolic murmur, rubs, systolic murmur Pulses: PRESENT: normal dorsalis pedis pul Vascular exam: PRESENT: normal capillary refill GI/Abdominal exam: PRESENT: normal bowel sounds, soft. ABSENT: distended, guarding, mass, organolmegaly, rebound, tenderness Rectal exam: PRESENT: deferred Extremities exam: PRESENT: full ROM. ABSENT: calf tenderness, clubbing, pedal edema Neurological exam: PRESENT: alert, awake, oriented to person, oriented to place, oriented to time, oriented to situation, CN II-XII grossly intact. ABSENT: motor sensory deficit Psychiatric exam: PRESENT: appropriate affect, normal mood. ABSENT: homicidal ideation, suicidal ideation Skin exam: PRESENT: dry, intact, warm. ABSENT: cyanosis, rash Results Laboratory Results: 05/07/19 06:30 05/07/19 05/07/19 06:30 06:30 Seg Neutrophils % Not Reportable Sodium 139.2 Potassium 4.4 Chloride 101 Carbon Dioxide 31 H Anion Gap 7 BUN 7 Creatinine 0.65 Est GFR ( Amer) > 60 Glucose 97 Calcium 8.5 Total Bilirubin 1.0 AST 35 Alkaline Phosphatase 108 Total Protein 7.5 Albumin 3.6 05/03/19 05/03/19 12:45 12:45 Creatine Kinase 108 Troponin I < 0.012 Impressions: Chest X-Ray 05/05/19 00:00 IMPRESSION: New right basilar airspace disease worrisome for pneumonia. Assessment & Plan - Diagnosis (1) Sickle cell pain crisis Is this a current diagnosis for this admission?: Yes Plan: Improving, continue supportive care (2) Anemia Qualifiers: Anemia type: acquired or hereditary hemolytic anemia Hemolytic anemia type: other hemoglobinopathy Qualified Code(s): D58.2 - Other hemoglobinopathies Is this a current diagnosis for this admission?: Yes Plan: Hemoglobin stable - Time Time Spent with patient: 35 or more minutes
[2019-05-07] MEDS: FOLIC ACID 1 MG TABLET PO SCH (10:32)
[2019-05-07] MEDS: HYDROXYUREA 500 MG CAPSULE PO SCH (10:32)
--- NOTE | 2019-05-07 15:55 | PDOC PROGRESS REPORT ---
Subjective Progress Note for:: 05/07/19 Subjective:: The patient is a 38-year-old male with a past medical history of sickle cell and opiate dependent chronic pain who was admitted 05/03/2019 with sickle cell crisis pain. The patient was seen on morning rounds. He was found resting in bed on supplemental oxygen via nasal cannula at 4 L/min. Continues to be tachypneic with shallow respirations; pt reports this is due to pain. Pain remains stable; well controlled with Dilaudid 3 mg. Long discussion had regarding concern for acute chest syndrome. Discussed signs and symptoms of pneumonia which the patient does not have at this time; therefore have d/c'd antibiotics. He is strongly encouraged to report any wors ening chest discomfort or dyspnea at which time we may revisit recommended transfer. He denies fever, chills, orthopnea, cough, abdominal pain, nausea vomiting and diarrhea. He does endorse chest discomfort, worsened with inspiration, and dyspnea at rest. He has no other questions or concerns at this time. No concerns per nursing. Reason For Visit: SICKLE CELL CRISIS,CHRONIC PAIN Physical Exam Vital Signs: Temp Pulse Resp BP Pulse Ox 98.0 F 83 16 121/73 100 05/07/19 08:05 05/07/19 14:00 05/07/19 08:05 05/07/19 08:05 05/07/19 08:05 Intake & Output 05/06/19 05/07/19 05/08/19 06:59 06:59 06:59 Intake Total 2420 3895 1163 Output Total 2200 2500 Balance 220 1395 1163 Weight 77.7 kg 79 kg General appearance: PRESENT: no acute distress, cooperative, well-developed, well-nourished - overweight Head exam: PRESENT: atraumatic, normocephalic Eye exam: PRESENT: conjunctiva pink, EOMI, PERRLA. ABSENT: scleral icterus Ear exam: PRESENT: normal external ear exam Mouth exam: PRESENT: moist, tongue midline Neck exam: ABSENT: carotid bruit, JVD, lymphadenopathy, thyromegaly Respiratory exam: PRESENT: clear to auscultation anastasiya, crackles - bibasilar, symmetrical, tachypnea - shallow, other - Supplemental oxygen by nasal cannula.. ABSENT: rales, rhonchi, wheezes Cardiovascular exam: PRESENT: RRR, +S1, +S2. ABSENT: diastolic murmur, rubs, systolic murmur Pulses: PRESENT: normal dorsalis pedis pul Vascular exam: PRESENT: normal capillary refill GI/Abdominal exam: PRESENT: normal bowel sounds, soft. ABSENT: distended, guarding, mass, organolmegaly, rebound, tenderness Rectal exam: PRESENT: deferred Extremities exam: PRESENT: full ROM. ABSENT: calf tenderness, clubbing, pedal edema Musculoskeletal exam: PRESENT: ambulatory Neurological exam: PRESENT: alert, awake, oriented to person, oriented to place, oriented to time, oriented to situation, CN II-XII grossly intact. ABSENT: motor sensory deficit Psychiatric exam: PRESENT: appropriate affect, normal mood. ABSENT: homicidal ideation, suicidal ideation Skin exam: PRESENT: dry, intact, warm. ABSENT: cyanosis, rash Results Laboratory Results: 05/07/19 06:30 05/07/19 06:30 05/07/19 05/07/19 06:30 06:30 WBC 5.9 RBC 2.51 L Hgb 8.3 L Hct 23.8 L MCV 95 MCH 33.0 MCHC 34.8 RDW 19.6 H Plt Count 212 Seg Neutrophils % Not Reportable Sodium 139.2 Potassium 4.4 Chloride 101 Carbon Dioxide 31 H Anion Gap 7 BUN 7 Creatinine 0.65 Est GFR ( Amer) > 60 Glucose 97 Calcium 8.5 Total Bilirubin 1.0 AST 35 Alkaline Phosphatase 108 Total Protein 7.5 Albumin 3.6 05/03/19 05/03/19 12:45 12:45 Creatine Kinase 108 Troponin I < 0.012 Impressions: Chest X-Ray 05/05/19 00:00 IMPRESSION: New right basilar airspace disease worrisome for pneumonia. Assessment and Plan - Diagnosis (1) Sickle cell pain crisis Is this a current diagnosis for this admission?: Yes Plan: Lab work shows some improvement; hemoglobin 8.3 today. Reticulocyte # down to 0.137 from 2.87 and retic count down to 5.37 from 10.32. Total bili now normal Patient is admitted to [facility] on continuous cardiac telemetry. He is provided generous IV fluids. Supplemental oxygen. Hematology is consulted; pain medications per Dr. Medellin. Continue folic acid and hydroxyurea. Monitor serial hemoglobin and transfuse as needed. (2) Acute chest syndrome Is this a current diagnosis for this admission?: Yes Plan: Patient continues to have severe chest discomfort limiting his ability to take deep inspirations. He remains on supplemental oxygen at 4 lpm via nasal cannula. He has bibasilar crackles today. CXR showed a dense right lower lobe consolidation with pleural effusion Although the radiologist comments regarding possible pneumonia, the patient is afebrile with normal WBCs and no clinical indications of pneumonia (no cough, clear lung sounds). Due to concern for acute chest syndrome, arrangements were made for the patient to transfer to [facility] for evaluation by their hematology services in c onsideration of possible exchange transfusion. Patient was provided a bed offer, unfortunately, the patient has declined transfer at this time as he believes that he has pneumonia. Continue management as above. [facility] transfer has been canceled. Low suspicion for pneumonia; have discontinued IV antibiotics. Received 48 hours of Azithromycin and Rocephin. (3) Chronic pain Is this a current diagnosis for this admission?: Yes Plan: Pain management per hematology. (4) Depression Qualifiers: Is this a current diagnosis for this admission?: Yes Plan: Stable. Recommend SSRI; declined at this time. (5) Methadone dependence Is this a current diagnosis for this admission?: Yes Plan: Continues on home dose methadone (6) Opiate dependence, continuous Is this a current diagnosis for this admission?: Yes Plan: As above. - Time Time Spent with patient: 15-24 minutes Medications reviewed and adjusted accordingly: Yes Anticipated discharge: Home Within: within 72 hours
[2019-05-08] MEDS: HYDROMORPHONE HCL INJ/PF 2 MG/ML AMPULE IV PRN ×10 (01:14→23:35)
[2019-05-08] MEDS: DIPHENHYDRAMINE HCL 50 MG/ML VIAL IV PRN ×6 (01:15→23:35)
[2019-05-08] MEDS: METHADONE HCL 10 MG TABLET PO SCH ×3 (05:39→22:00)
[2019-05-08] MEDS: NORMAL SALINE 1000 ML 1,000 ML IV PRN ×2 (08:02→15:51)
--- NOTE | 2019-05-08 08:13 | PDOC PROGRESS REPORT ---
Subjective Progress Note for:: 05/08/19 Subjective:: Patient complaining of increased dyapnea and pain with breathing. Chest and upper abdominal pain. ROS: No diarrhea or constipation. No itching. Not walking in hallway yet Reason For Visit: SICKLE CELL CRISIS,CHRONIC PAIN Physical Exam Vital Signs: Temp Pulse Resp BP Pulse Ox 98.1 F 80 16 125/71 96 05/07/19 17:28 05/07/19 17:28 05/07/19 17:28 05/07/19 17:28 05/07/19 17:28 Intake & Output 05/07/19 05/08/19 05/09/19 06:59 06:59 06:59 Intake Total 3895 4503 Output Total 2500 1100 Balance 1395 3403 Weight 79 kg 76.2 kg General appearance: PRESENT: no acute distress, well-developed, well-nourished Head exam: PRESENT: normocephalic Respiratory exam: PRESENT: unlabored Extremities exam: ABSENT: pedal edema Neurological exam: PRESENT: alert, awake Skin exam: PRESENT: normal color Results Laboratory Results: 05/07/19 06:30 05/07/19 06:30 05/07/19 06:30 WBC 5.9 RBC 2.51 L Hgb 8.3 L Hct 23.8 L MCV 95 MCH 33.0 MCHC 34.8 RDW 19.6 H Plt Count 212 05/03/19 05/03/19 12:45 12:45 Creatine Kinase 108 Troponin I < 0.012 Impressions: Chest X-Ray 05/05/19 00:00 IMPRESSION: New right basilar airspace disease worrisome for pneumonia. Assessment & Plan - Diagnosis (1) Sickle cell pain crisis Is this a current diagnosis for this admission?: Yes Plan: Labs improving. Continue current measures. I have strongly encouraged him to walk in [place]. (2) Anemia Qualifiers: Anemia type: acquired or hereditary hemolytic anemia Hemolytic anemia type: other hemoglobinopathy Qualified Code(s): D58.2 - Other hemoglobinopathies Is this a current diagnosis for this admission?: Yes Plan: Stable,. No indication for transfusion currently. (3) Pharyngitis Qualifiers: Pharyngitis/tonsillitis etiology: unspecified etiology Qualified Code(s): J02.9 - Acute pharyngitis, unspecified Is this a current diagnosis for this admission?: Yes - Time Time Spent with patient: Less than 15 minutes - Plan Summary Plan Summary: Patient not willing to start weaning pain meds yet. Continue O2 and fluids. I would keep O2 at 2 L. His O2 sat today was 100%
[2019-05-08 08:32] LABS: ABSOLUTE RETICS # 0.091 10^6/uL (0.028-0.122); HEMATOCRIT 23.9 % (37.9-51.0); HEMOGLOBIN 8.4 g/dL (13.5-17.0); MEAN CORPUSCULAR HEMOGLOBIN 32.5 pg (27.0-33.4); MEAN CORPUSCULAR VOLUME 93 fl (80-97); PLATELET COUNT 265 10^3/uL (150-450); RED BLOOD COUNT 2.58 10^6/uL (4.35-5.55); RETICULOCYTE COUNT (AUTO) 3.51 % (0.66-2.85); WHITE BLOOD COUNT 5.4 10^3/uL (4.0-10.5)
--- NOTE | 2019-05-08 08:44 | RADIOLOGY REPORT (SQ) ---
EXAM DESCRIPTION: CHEST 2 VIEWS COMPLETED DATE/TIME: 05/08/2019 8:27 am REASON FOR STUDY: Chest pain, dyspnea COMPARISON: AP view of the chest from 05/05/2019 EXAM PARAMETERS: NUMBER OF VIEWS: two views TECHNIQUE: PA and lateral views of the chest were obtained. RADIATION DOSE: NA LIMITATIONS: none FINDINGS: LUNGS AND PLEURA: The dense bibasilar opacities that obscure the contours of the hemidiaph ragms and blunt the costophrenic sulci have improved. There is no pneumothorax. MEDIASTINUM AND HILAR STRUCTURES: Stable mediastinal and hilar contours. HEART AND VASCULAR STRUCTURES: Stable cardiac silhouette. BONES: No acute findings. HARDWARE: The tip of the left IJ single-lumen poor projects within the SVC. OTHER: No other finding. IMPRESSION: Improved bibasilar opacities that could represent atelectasis or multifocal pneumonia. TECHNICAL DOCUMENTATION: JOB ID: [id number] [employer]- All Rights Reserved Reading location - IP/workstation name: [email or web address]
[2019-05-08] MEDS: FOLIC ACID 1 MG TABLET PO SCH (09:02)
[2019-05-08] MEDS: HYDROXYUREA 500 MG CAPSULE PO SCH (09:02)
--- NOTE | 2019-05-08 14:56 | PDOC PROGRESS REPORT ---
Subjective Progress Note for:: 05/08/19 Subjective:: The patient is a 38-year-old male with a past medical history of sickle cell and opiate dependent chronic pain who was admitted 05/03/2019 with sickle cell crisis pain. The patient was seen on morning rounds. He was found resting in bed on supplemental oxygen via nasal cannula at 4 L/min. He reports dyspnea and chest pain with deep inspiration. He tells me that he needs his antibiotics restarted; he feels that he has pneumonia and is concerned that we are not t reating him "the way the doctors at [facility] would." I explained that he has no evidence for pneumonia (nml WBCs, afebrile) and that his CXR is actually improved today. Discussed that his retic count had normalized and Hgb was stable. Advised patient I expected his symptoms to rapidly resolve. Patient reports continued pain limiting his ability to ambulate. He denies fever, chills, orthopnea, cough, abdominal pain, nausea vomiting and diarrhea. He has no other questions or concerns at this time. No concerns per nursing. Reason For Visit: SICKLE CELL CRISIS,CHRONIC PAIN Physical Exam Vital Signs: Temp Pulse Resp BP Pulse Ox 97.5 F 77 18 117/73 100 05/08/19 12:06 05/08/19 12:06 05/08/19 12:06 05/08/19 12:06 05/08/19 12:06 Intake & Output 05/07/19 05/08/19 05/09/19 06:59 06:59 06:59 Intake Total 3895 4503 Output Total 2500 1100 Balance 1395 3403 Weight 79 kg 76.2 kg General appearance: PRESENT: no acute distress, well-developed, well-nourished. ABSENT: cooperative Head exam: PRESENT: atraumatic, normocephalic Eye exam: PRESENT: conjunctiva pink, EOMI, PERRLA. ABSENT: scleral icterus Ear exam: PRESENT: normal external ear exam Mouth exam: PRESENT: moist, tongue midline Neck exam: ABSENT: carotid bruit, JVD, lymphadenopathy, thyromegaly Respiratory exam: PRESENT: clear to auscultation anastasiya, decreased breath sounds - bibasilar, symmetrical, unlabored, other - supplemental oxygen via NC. ABSENT: rales, rhonchi, wheezes Cardiovascular exam: PRESENT: RRR, +S1, +S2. ABSENT: diastolic murmur, rubs, systolic murmur Pulses: PRESENT: normal dorsalis pedis pul Vascular exam: PRESENT: normal capillary refill GI/Abdominal exam: PRESENT: normal bowel sounds, soft. ABSENT: distended, guarding, mass, organolmegaly, rebound, tenderness Rectal exam: PRESENT: deferred Extremities exam: PRESENT: full ROM. ABSENT: calf tenderness, clubbing, pedal edema Neurological exam: PRESENT: alert, awake, oriented to person, oriented to place, oriented to time, oriented to situation, CN II-XII grossly intact. ABSENT: motor sensory deficit Psychiatric exam: PRESENT: appropriate affect, normal mood. ABSENT: homicidal ideation, suicidal ideation Skin exam: PRESENT: dry, intact, warm. ABSENT: cyanosis, rash Results Laboratory Results: 05/08/19 07:59 05/07/19 06:30 05/08/19 07:59 WBC 5.4 RBC 2.58 L Hgb 8.4 L Hct 23.9 L MCV 93 MCH 32.5 MCHC 35.0 RDW 20.0 H Plt Count 265 Retic Count (auto) 3.51 H 05/03/19 05/03/19 12:45 12:45 Creatine Kinase 108 Troponin I < 0.012 Impressions: Chest X-Ray 05/08/19 00:00 IMPRESSION: Improved bibasilar opacities that could represent atelectasis or multifocal pneumonia. Assessment and Plan - Diagnosis (1) Sickle cell pain crisis Is this a current diagnosis for this admission?: Yes Plan: Lab work shows significant improvement; hemoglobin 8.4 today. Reticulocyte # 2.87-> 0.137-> 0.091 (nml result; lowest on record for this patient) Retic count 10.32-> 5.37-> 3.51 (lowest since 2011) Total bili now normal CXR improved. Patient was admitted to IMCU on continuous cardiac telemetry; will downgrade to med floor today. He is provided generous IV fluids. Supplemental oxygen at 2 lpm as recommended by Dr. Pena.. Hematology is consulted; pain medications per their service. Discussed with Dr. Pena today; agrees with decreasing to Dilaudid 2 mg ever two hours. Anticipate patient will be resistant to medication reduction. Continue folic acid and hydroxyurea. Monitor serial hemoglobin and transfuse as needed. (2) Acute chest syndrome Is this a current diagnosis for this admission?: Yes Plan: Improved. Patient continues to have chest discomfort w/ deep inspiration. He remains on supplemental oxygen at 4 lpm via nasal cannula; admits to being resistant to weaning oxygen. Lung sounds clear today. CXR (05/05/19) showed a dense right lower lobe consolidation with pleural effusion Repeat CXR shows improvement; some bilateral atelectasis Low suspicion for pneumonia; have discontinued IV antibiotics. Received 48 hours of Azithromycin and Rocephin. (3) Chronic pain Is this a current diagnosis for this admission?: Yes Plan: Pain management per hematology. (4) Depression Qualifiers: Is this a current diagnosis for this admission?: Yes Plan: Stable. Recommend SSRI; declined at this time. (5) Methadone dependence Is this a current diagnosis for this admission?: Yes Plan: Continues on home dose methadone (6) Opiate dependence, continuous Is this a current diagnosis for this admission?: Yes Plan: As above. - Time Time Spent with patient: 25-34 minutes Medications reviewed and adjusted accordingly: Yes Anticipated discharge: Home Within: within 48 hours
[2019-05-09] MEDS: NORMAL SALINE 1000 ML 1,000 ML IV PRN ×4 (00:24→23:58)
[2019-05-09] MEDS: HYDROMORPHONE HCL INJ/PF 2 MG/ML AMPULE IV PRN ×11 (01:56→23:18)
[2019-05-09] MEDS: DIPHENHYDRAMINE HCL 50 MG/ML VIAL IV PRN ×4 (06:12→21:05)
[2019-05-09] MEDS: METHADONE HCL 10 MG TABLET PO SCH ×3 (06:14→21:07)
[2019-05-09] MEDS: HYDROXYUREA 500 MG CAPSULE PO SCH (10:32)
[2019-05-09] MEDS: FOLIC ACID 1 MG TABLET PO SCH (10:32)
[2019-05-09] MEDS: OXYCODONE HCL IR 5 MG TABLET PO SCH ×3 (11:59→23:19)
--- NOTE | 2019-05-09 16:50 | PDOC PROGRESS REPORT ---
Subjective Progress Note for:: 05/09/19 Subjective:: The patient is a 38-year-old male with a past medical history of sickle cell and opiate dependent chronic pain who was admitted 05/03/2019 with sickle cell crisis pain. The patient was seen on morning rounds. He was found resting in bed on supplemental oxygen via nasal cannula at 2 L/min. The patient reports that he is feeling a little bit better today. He reports that his pain is adequately managed on current regiment. He denies fever, chills, orthopnea, cough, abdominal pain, nausea vomiting and diarrhea. He has no other questions or concerns at this time. No concerns per nursing. Reason For Visit: SICKLE CELL CRISIS,CHRONIC PAIN Physical Exam Vital Signs: Temp Pulse Resp BP Pulse Ox 97.6 F 68 14 123/76 98 05/09/19 07:11 05/09/19 07:11 05/09/19 08:40 05/09/19 07:11 05/09/19 08:40 Intake & Output 05/08/19 05/09/19 05/10/19 06:59 06:59 06:59 Intake Total 4503 2335 1000 Output Total 1100 2645 Balance 3403 -310 1000 Weight 76.2 kg 79.4 kg General appearance: PRESENT: no acute distress, well-developed, well-nourished Head exam: PRESENT: atraumatic, normocephalic Eye exam: PRESENT: conjunctiva pink, EOMI, PERRLA. ABSENT: scleral icterus Ear exam: PRESENT: normal external ear exam Mouth exam: PRESENT: moist, tongue midline Respiratory exam: PRESENT: clear to auscultation anastasiya, symmetrical, unlabored, other - Supplemental oxygen by nasal cannula. ABSENT: rales, rhonchi, wheezes Cardiovascular exam: PRESENT: RRR. ABSENT: diastolic murmur, rubs, systolic murmur Pulses: PRESENT: normal dorsalis pedis pul Vascular exam: PRESENT: normal capillary refill GI/Abdominal exam: PRESENT: normal bowel sounds, soft. ABSENT: distended, guarding, mass, organolmegaly, rebound, tenderness Rectal exam: PRESENT: deferred Extremities exam: PRESENT: full ROM. ABSENT: calf tenderness, clubbing, pedal edema Neurological exam: PRESENT: alert, awake, oriented to person, oriented to place, oriented to time, oriented to situation, CN II-XII grossly intact. ABSENT: motor sensory deficit Psychiatric exam: PRESENT: appropriate affect, normal mood. ABSENT: homicidal ideation, suicidal ideation Skin exam: PRESENT: dry, intact, warm. ABSENT: cyanosis, rash Results Laboratory Results: 05/08/19 07:59 05/07/19 06:30 05/03/19 05/03/19 12:45 12:45 Creatine Kinase 108 Troponin I < 0.012 Impressions: Chest X-Ray 05/08/19 00:00 IMPRESSION: Improved bibasilar opacities that could represent atelectasis or multifocal pneumonia. Assessment and Plan - Diagnosis (1) Sickle cell pain crisis Is this a current diagnosis for this admission?: Yes Plan: Lab work shows significant improvement; hemoglobin 8.4 today. Reticulocyte # 2.87-> 0.137-> 0.091 (nml result; lowest on record for this patient) Retic count 10.32-> 5.37-> 3.51 (lowest since 2011) Total bili now normal CXR improved. Patient was admitted to [facility] on continuous cardiac telemetry; will downgrade to [facility] floor today. He is provided generous IV fluids. Supplemental oxygen at 2 lpm Hematology is consulted; pain medications per their service. Discussed with Dr. Pena yesterday; agrees with weaning narcotics. Anticipate patient will be resistant to medication reduction. Resume the patient's outpatient oxycodone regiment. Continue home dose methadone. Continue weaning Dilaudid. Continue folic acid and hydroxyurea. (2) Acute chest syndrome Is this a current diagnosis for this admission?: Yes Plan: Improved. Patient continues to have chest discomfort w/ deep inspiration. He remains on supplemental oxygen; will begin weaning CXR (05/05/19) showed a dense right lower lobe consolidation with pleural effusion Repeat CXR shows improvement; some bilateral atelectasis Low suspicion for pneumonia; have discontinued IV antibiotics. Received 48 hours of Azithromycin and Rocephin. (3) Depression Qualifiers: Is this a current diagnosis for this admission?: Yes Plan: Stable. Recommend SSRI; declined at this time. (4) Chronic pain Is this a current diagnosis for this admission?: Yes Plan: Pain management as above. Verified with the [place] controlled substance database. Patient receives oxycodone 10 mg #180 and methadone 5 mg #90 monthly (5) Methadone dependence Is this a current diagnosis for this admission?: Yes Plan: Continues on home dose methadone (6) Opiate dependence, continuous Is this a current diagnosis for this admission?: Yes Plan: As above. - Time Time Spent with patient: 15-24 minutes
--- NOTE | 2019-05-09 17:45 | PDOC PROGRESS REPORT ---
Subjective Progress Note for:: 05/09/19 Subjective:: Patient asks why he was not a candidate to be transferred to [facility], but today, has no new complaints. He states that his pain is doing about the same and is sitting up, conversing freely, smiling, without obvious distress. ROS: No dyspnea, No constipation. Reason For Visit: SICKLE CELL CRISIS,CHRONIC PAIN Physical Exam Vital Signs: Temp Pulse Resp BP Pulse Ox 98.5 F 80 18 121/79 97 05/09/19 16:32 05/09/19 16:32 05/09/19 16:32 05/09/19 16:32 05/09/19 16:32 Intake & Output 05/08/19 05/09/19 05/10/19 06:59 06:59 06:59 Intake Total 4503 2335 2045 Output Total 1100 2645 Balance 3403 -310 2045 Weight 76.2 kg 79.4 kg General appearance: PRESENT: no acute distress, well-developed, well-nourished Head exam: PRESENT: normocephalic Respiratory exam: PRESENT: unlabored Extremities exam: ABSENT: pedal edema Neurological exam: PRESENT: alert, awake, oriented to person, oriented to place, oriented to time, oriented to situation Psychiatric exam: PRESENT: appropriate affect Skin exam: PRESENT: normal color Results Laboratory Results: 05/08/19 07:59 05/07/19 06:30 05/03/19 05/03/19 12:45 12:45 Creatine Kinase 108 Troponin I < 0.012 Impressions: Chest X-Ray 05/08/19 00:00 IMPRESSION: Improved bibasilar opacities that could represent atelectasis or multifocal pneumonia. Assessment & Plan - Diagnosis (1) Sickle cell pain crisis Is this a current diagnosis for this admission?: Yes Plan: Pain currently controlled. His IV narcotics are slowly being weaned. Continue fluids and O2. 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 No indication for blood transfusion. (3) Pharyngitis Qualifiers: Pharyngitis/tonsillitis etiology: unspecified etiology Qualified Code(s): J02.9 - Acute pharyngitis, unspecified Is this a current diagnosis for this admission?: Yes - Time Time Spent with patient: 15-24 minutes
[2019-05-10] MEDS: HYDROMORPHONE HCL INJ/PF 2 MG/ML AMPULE IV PRN ×8 (01:21→21:35)
[2019-05-10] MEDS: DIPHENHYDRAMINE HCL 50 MG/ML VIAL IV PRN ×4 (01:25→18:29)
[2019-05-10] MEDS: METHADONE HCL 10 MG TABLET PO SCH ×3 (05:51→21:35)
[2019-05-10] MEDS: OXYCODONE HCL IR 5 MG TABLET PO SCH ×3 (05:52→18:29)
[2019-05-10] MEDS: NORMAL SALINE 1000 ML 1,000 ML IV PRN ×3 (08:09→23:24)
[2019-05-10 08:31] LABS: HEMATOCRIT 23.5 % (37.9-51.0); HEMOGLOBIN 8.3 g/dL (13.5-17.0); MEAN CORPUSCULAR HEMOGLOBIN 32.9 pg (27.0-33.4); MEAN CORPUSCULAR HGB CONC 35.3 g/dL (32.0-36.0); MEAN CORPUSCULAR VOLUME 93 fl (80-97); PLATELET COUNT 366 10^3/uL (150-450); RED BLOOD COUNT 2.52 10^6/uL (4.35-5.55); WHITE BLOOD COUNT 5.2 10^3/uL (4.0-10.5)
[2019-05-10] MEDS: FOLIC ACID 1 MG TABLET PO SCH (09:46)
[2019-05-10] MEDS: HYDROXYUREA 500 MG CAPSULE PO SCH (09:46)
--- NOTE | 2019-05-10 10:45 | PDOC PROGRESS REPORT ---
Subjective Progress Note for:: 05/10/19 Subjective:: The patient is a 38-year-old male with a past medical history of sickle cell and opiate dependent chronic pain who was admitted 05/03/2019 with sickle cell crisis pain. The patient was seen on morning rounds. He was found resting in bed, comfortably, on supplemental oxygen via nasal cannula at 2 L/min. The patient reports that he is feeling better today. He reports that his pain is adequately managed. Offered to discharge the patient home today as his laboratory evaluation (hemoglobin and reticulocyte count) were reassuring. The patient states "I will go home on Saturday after I see Dr. Medellin." He is asked if there is anything he is concerned about and responds, "No, I'm just supposed to see Dr. Medellin first." He is advised that we are weaning his dilaudid in preparation of discharge home tomorrow. He denies fever, chills, orthopnea, cough, abdominal pain, nausea vomiting and diarrhea. He has no other questions or concerns at this time. No concerns per nursing. Reason For Visit: SICKLE CELL CRISIS,CHRONIC PAIN Physical Exam Vital Signs: Temp Pulse Resp BP Pulse Ox 98.3 F 76 17 123/78 100 05/10/19 07:14 05/10/19 07:14 05/10/19 07:14 05/10/19 07:14 05/10/19 07:14 Intake & Output 05/09/19 05/10/19 05/11/19 06:59 06:59 06:59 Intake Total 2335 3747 1000 Output Total 2645 2700 Balance -310 1047 1000 Weight 79.4 kg 78.6 kg General appearance: PRESENT: no acute distress, well-developed, well-nourished Head exam: PRESENT: atraumatic, normocephalic Eye exam: PRESENT: conjunctiva pink, EOMI, PERRLA. ABSENT: scleral icterus Ear exam: PRESENT: normal external ear exam Mouth exam: PRESENT: moist, tongue midline Respiratory exam: PRESENT: clear to auscultation anastasiya, symmetrical, unlabored. ABSENT: rales, rhonchi, wheezes Cardiovascular exam: PRESENT: RRR, +S1, +S2. ABSENT: diastolic murmur, rubs, systolic murmur Pulses: PRESENT: normal dorsalis pedis pul Vascular exam: PRESENT: normal capillary refill Extremities exam: PRESENT: full ROM. ABSENT: calf tenderness, clubbing, pedal edema Musculoskeletal exam: PRESENT: ambulatory Neurological exam: PRESENT: alert, awake, oriented to person, oriented to place, oriented to time, oriented to situation, CN II-XII grossly intact. ABSENT: motor sensory deficit Psychiatric exam: PRESENT: appropriate affect, normal mood. ABSENT: homicidal ideation, suicidal ideation Skin exam: PRESENT: dry, intact, warm. ABSENT: cyanosis, rash Results Laboratory Results: 05/10/19 08:05 05/07/19 06:30 05/10/19 08:05 WBC 5.2 RBC 2.52 L Hgb 8.3 L Hct 23.5 L MCV 93 MCH 32.9 MCHC 35.3 RDW 22.0 H Plt Count 366 05/03/19 05/03/19 12:45 12:45 Creatine Kinase 108 Troponin I < 0.012 Impressions: Chest X-Ray 05/08/19 00:00 IMPRESSION: Improved bibasilar opacities that could represent atelectasis or multifocal pneumonia. Assessment and Plan - Diagnosis (1) Sickle cell pain crisis Is this a current diagnosis for this admission?: Yes Plan: Lab work shows significant improvement; hemoglobin 8.3 today. Reticulocyte # 2.87-> 0.137-> 0.091 (nml result; lowest on record for this patient) Retic count 10.32-> 5.37-> 3.51 (lowest since 2011) Total bili now normal CXR improved. Patient was admitted to [facility] on continuous cardiac telemetry; will downgrade to med floor today. He is provided IV fluids. Supplemental oxygen at 2 lpm Hematology is consulted. Discussed pain medications with Dr. Pena; agrees with weaning narcotics. Resume the patient's outpatient oxycodone regiment. Continue home dose methadone. Continue gradual weaning of Dilaudid. Continue folic acid and hydroxyurea. (2) Acute chest syndrome Is this a current diagnosis for this admission?: Yes Plan: Improved. Patient continues to have chest discomfort w/ deep inspiration. He remains on supplemental oxygen; will begin weaning CXR (05/05/19) showed a dense right lower lobe consolidation with pleural effusion Repeat CXR shows improvement; some bilateral atelectasis Low suspicion for pneumonia; have discontinued IV antibiotics. Received 48 hours of Azithromycin and Rocephin. (3) Depression Qualifiers: Is this a current diagnosis for this admission?: Yes Plan: Stable. Recommend SSRI; declined at this time. (4) Chronic pain Is this a current diagnosis for this admission?: Yes Plan: Pain management as above. Verified with the [place] controlled substance database. Patient receives oxycodone 10 mg #180 and methadone 5 mg #90 monthly (5) Methadone dependence Is this a current diagnosis for this admission?: Yes Plan: Continues on home dose methadone (6) Opiate dependence, continuous Is this a current diagnosis for this admission?: Yes Plan: As above. - Time Time Spent with patient: 15-24 minutes Medications reviewed and adjusted accordingly: Yes Anticipated discharge: Home Within: within 24 hours
[2019-05-11] MEDS: OXYCODONE HCL IR 5 MG TABLET PO SCH ×3 (00:29→11:38)
[2019-05-11] MEDS: DIPHENHYDRAMINE HCL 50 MG/ML VIAL IV PRN ×3 (00:32→11:30)
[2019-05-11] MEDS: HYDROMORPHONE HCL INJ/PF 2 MG/ML AMPULE IV PRN ×3 (00:41→07:13)
[2019-05-11] MEDS: METHADONE HCL 10 MG TABLET PO SCH (06:02)
[2019-05-11] MEDS ORDERED: HYDROMORPHONE HCL INJ/PF 2 MG/ML AMPULE IV PRN (07:30)
--- NOTE | 2019-05-11 08:18 | PDOC PROGRESS REPORT ---
Subjective Progress Note for:: 05/11/19 Subjective:: Patient feeling better today, he feels ready for discharge Reason For Visit: SICKLE CELL CRISIS,CHRONIC PAIN Physical Exam Vital Signs: Temp Pulse Resp BP Pulse Ox 98.0 F 71 17 125/81 94 05/11/19 07:38 05/11/19 07:38 05/11/19 07:38 05/11/19 07:38 05/11/19 07:38 Intake & Output 05/10/19 05/11/19 05/12/19 06:59 06:59 06:59 Intake Total 3747 3708 Output Total 2700 4375 Balance 1047 -667 Weight 78.6 kg 80.2 kg General appearance: PRESENT: no acute distress, well-developed, well-nourished Head exam: PRESENT: atraumatic, normocephalic Eye exam: PRESENT: conjunctiva pink, EOMI, PERRLA. ABSENT: scleral icterus Ear exam: PRESENT: normal external ear exam Mouth exam: PRESENT: moist, tongue midline Neck exam: ABSENT: carotid bruit, JVD, lymphadenopathy, thyromegaly Respiratory exam: PRESENT: clear to auscultation anastasiya. ABSENT: rales, rhonchi, wheezes Cardiovascular exam: PRESENT: RRR. ABSENT: diastolic murmur, rubs, systolic murmur Pulses: PRESENT: normal dorsalis pedis pul Vascular exam: PRESENT: normal capillary refill GI/Abdominal exam: PRESENT: normal bowel sounds, soft. ABSENT: distended, guarding, mass, organolmegaly, rebound, tenderness Rectal exam: PRESENT: deferred Extremities exam: PRESENT: full ROM. ABSENT: calf tenderness, clubbing, pedal edema Neurological exam: PRESENT: alert, awake, oriented to person, oriented to place, oriented to time, oriented to situation, CN II-XII grossly intact. ABSENT: motor sensory deficit Psychiatric exam: PRESENT: appropriate affect, normal mood. ABSENT: homicidal ideation, suicidal ideation Skin exam: PRESENT: dry, intact, warm. ABSENT: cyanosis, rash Results Laboratory Results: 05/10/19 08:05 05/07/19 06:30 05/10/19 08:05 WBC 5.2 RBC 2.52 L Hgb 8.3 L Hct 23.5 L MCV 93 MCH 32.9 MCHC 35.3 RDW 22.0 H Plt Count 366 05/05/19 20:03 Blood Blood Culture - Final NO GROWTH IN 5 DAYS 05/05/19 15:25 Blood Blood Culture - Final NO GROWTH IN 5 DAYS 05/03/19 05/03/19 12:45 12:45 Creatine Kinase 108 Troponin I < 0.012 Impressions: Chest X-Ray 05/08/19 00:00 IMPRESSION: Improved bibasilar opacities that could represent atelectasis or multifocal pneumonia. 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
[2019-05-11] MEDS: FOLIC ACID 1 MG TABLET PO SCH (10:17)
[2019-05-11] MEDS: HYDROXYUREA 500 MG CAPSULE PO SCH (10:18)
--- NOTE | 2019-05-11 12:05 | PDOC DISCHARGE SUMMARY ---
Impression - Admit/DC Date/PCP Admission Date/Primary Care Provider: 05/03/19 17:51 BETH STAPLETON MD Discharge Date: 05/11/19 - Discharge Diagnosis (1) Sickle cell pain crisis Is this a current diagnosis for this admission?: Yes (2) Acute chest syndrome Is this a current diagnosis for this admission?: Yes (3) Depression Is this a current diagnosis for this admission?: Yes (4) Chronic pain Is this a current diagnosis for this admission?: Yes (5) Methadone dependence Is this a current diagnosis for this admission?: Yes (6) Opiate dependence, continuous Is this a current diagnosis for this admission?: Yes - Additional Information Resuscitation Status: Full Code Discharge Diet: Regular Discharge Activity: Activity As Tolerated, Balance Activity w/Rest, Slowly Increase Activity Referrals: BETH STAPLETON MD [Primary Care Provider] - 05/20/19 1:00 pm Home Medications: Folic Acid [Folvite 1 mg Tablet] 1 mg PO DAILY 02/19/19 Hydroxyurea [Hydrea 500 mg Capsule] 1,500 mg PO DAILY 02/19/19 Oxycodone HCl [Oxy-Ir 5 mg Tablet] 10 mg PO Q4HP PRN 02/19/19 Acetaminophen [Tylenol 325 mg Tablet] 650 mg PO Q4HP PRN tablet 05/11/19 History of Present Illiness History of Present Illness: Per H&P by RICHELLE Newberry: MARISA GARBER is a 38 year old male with sickle cell disease. Patient states he has been hurting since the beginning of the new year and then has been into the emergency room on multiple occasions for joint pain. Patient states the medicine he takes as an outpatient has not helped therefore he is come into the emergency room. Reticulocyte count is 10.32. It looks like he has been as high as 14.55 and as low as 5.09. Average appears to be about 10 Electrolytes are grossly normal total protein is a little high 8.4 total bilirubin slightly high at 3.0 renal functions are normal Hospital Course Hospital Course: 1) Sickle cell pain crisis Resolved. Lab work shows significant improvement; hemoglobin 8.3 today. Reticulocyte # 2.87-> 0.137-> 0.091 (nml result; lowest on record for this patient) Retic count 10.32-> 5.37-> 3.51 (lowest since 2011) Total bili now normal CXR improved. Patient was admitted to [facility] on continuous cardiac telemetry and was provided generous IV fluids, supplemental oxygen, antiemetics, analgesics, and IV Benadryl as needed for symptom management. (2) Acute chest syndrome Resolved. CXR (05/05/19) showed a dense right lower lobe consolidation with pleural effusion Repeat CXR shows improvement; some bilateral atelectasis Low suspicion for pneumonia; have discontinued IV antibiotics. Received 48 hours of Azithromycin and Rocephin. (3) Depression Stable. Recommend SSRI; declined at this time. (4) Chronic pain Verified with the [place] controlled substance database. Patient receives oxycodone 10 mg #180 and methadone 5 mg #90 monthly The patient's home medication regiment was continued. During his acute exacerbation, he additionally received IV Dilaudid which was slowly weaned as his laboratory work and symptoms improved. (5) Methadone dependence Continues on home dose methadone (6) Opiate dependence, continuous As above. Physical Exam Vital Signs: Temp Pulse Resp BP Pulse Ox 98.0 F 71 17 125/81 94 05/11/19 07:38 05/11/19 07:38 05/11/19 07:38 05/11/19 07:38 05/11/19 07:38 Intake & Output 05/10/19 05/11/19 05/12/19 06:59 06:59 06:59 Intake Total 3747 3708 240 Output Total 2700 4375 Balance 1047 -667 240 Weight 78.6 kg 80.2 kg General appearance: PRESENT: no acute distress, well-developed, well-nourished Head exam: PRESENT: atraumatic, normocephalic Eye exam: PRESENT: conjunctiva pink, EOMI, PERRLA. ABSENT: scleral icterus Ear exam: PRESENT: normal external ear exam Mouth exam: PRESENT: moist, tongue midline Neck exam: ABSENT: carotid bruit, JVD, lymphadenopathy, thyromegaly Respiratory exam: PRESENT: clear to auscultation anastasiya. ABSENT: rales, rhonchi, wheezes Cardiovascular exam: PRESENT: RRR. ABSENT: diastolic murmur, rubs, systolic murmur Pulses: PRESENT: normal dorsalis pedis pul Vascular exam: PRESENT: normal capillary refill GI/Abdominal exam: PRESENT: normal bowel sounds, soft. ABSENT: distended, guarding, mass, organolmegaly, rebound, tenderness Rectal exam: PRESENT: deferred Extremities exam: PRESENT: full ROM. ABSENT: calf tenderness, clubbing, pedal edema Neurological exam: PRESENT: alert, awake, oriented to person, oriented to place, oriented to time, oriented to situation, CN II-XII grossly intact. ABSENT: motor sensory deficit Psychiatric exam: PRESENT: appropriate affect, normal mood. ABSENT: homicidal ideation, suicidal ideation Skin exam: PRESENT: dry, intact, warm. ABSENT: cyanosis, rash Results Laboratory Results: WBC 5.2 10^3/uL (4.0-10.5) 05/10/19 08:05 RBC 2.52 10^6/uL (4.35-5.55) L 05/10/19 08:05 Hgb 8.3 g/dL (13.5-17.0) L 05/10/19 08:05 Hct 23.5 % (37.9-51.0) L 05/10/19 08:05 MCV 93 fl (80-97) 05/10/19 08:05 MCH 32.9 pg (27.0-33.4) 05/10/19 08:05 MCHC 35.3 g/dL (32.0-36.0) 05/10/19 08:05 RDW 22.0 % (11.5-14.0) H 05/10/19 08:05 Plt Count 366 10^3/uL (150-450) 05/10/19 08:05 Lymph % (Auto) Not Reportable 05/07/19 06:30 Maries % (Auto) Not Reportable 05/07/19 06:30 Eos % (Auto) Not Reportable 05/07/19 06:30 Baso % (Auto) Not Reportable 05/07/19 06:30 Reticulocyte # 0.091 10^6/uL (0.028-0.122) 05/08/19 07:59 Absolute Neuts (auto) Not Reportable 05/07/19 06:30 Absolute Lymphs (auto) Not Reportable 05/07/19 06:30 Absolute Monos (auto) Not Reportable 05/07/19 06:30 Absolute Eos (auto) Not Reportable 05/07/19 06:30 Absolute Basos (auto) Not Reportable 05/07/19 06:30 Total Counted 100 05/07/19 06:30 Seg Neutrophils % Not Reportable 05/07/19 06:30 Seg Neuts % (Manual) 60 % (42-78) 05/07/19 06:30 Lymphocytes % (Manual) 26 % (13-45) 05/07/19 06:30 Monocytes % (Manual) 11 % (3-13) 05/07/19 06:30 Eosinophils % (Manual) 3 % (0-6) 05/07/19 06:30 Basophils % (Manual) 0 % (0-2) 05/07/19 06:30 Abs Neuts (Manual) 3.5 10^3/uL (1.7-8.2) 05/07/19 06:30 Abs Lymphs (Manual) 1.5 10^3/uL (0.5-4.7) 05/07/19 06:30 Abs Monocytes (Manual) 0.6 10^3/uL (0.1-1.4) 05/07/19 06:30 Absolute Eos (Manual) 0.2 10^3/uL (0.0-0.6) 05/07/19 06:30 Abs Basophils (Manual) 0.0 10^3/uL (0.0-0.2) 05/07/19 06:30 Nucleated RBCs 5 /100 WBC (0) 05/04/19 04:00 Toxic Granulation SLIGHT 05/04/19 04:00 Platelet Comment ADEQUATE 05/07/19 06:30 Polychromasia 1+ 05/07/19 06:30 Poikilocytosis 3+ 05/04/19 04:00 Basophilic Stippling PRESENT 05/04/19 04:00 Anisocytosis 2+ 05/07/19 06:30 Sickle Cells SLIGHT 05/07/19 06:30 Target Cells 1+ 05/07/19 06:30 Tear Drop Cells SLIGHT 05/04/19 04:00 Ovalocytes 1+ 05/07/19 06:30 Schistocytes 2+ 05/04/19 04:00 Retic Count (auto) 3.51 % (0.66-2.85) H 05/08/19 07:59 PT 15.0 SEC (11.4-15.4) 05/04/19 04:00 INR 1.17 05/04/19 04:00 APTT 30.1 SEC (23.5-35.8) 05/04/19 04:00 Sodium 139.2 mmol/L (137-145) 05/07/19 06:30 Potassium 4.4 mmol/L (3.6-5.0) 05/07/19 06:30 Chloride 101 mmol/L (98-107) 05/07/19 06:30 Carbon Dioxide 31 mmol/L (22-30) H 05/07/19 06:30 Anion Gap 7 (5-19) 05/07/19 06:30 BUN 7 mg/dL (7-20) 05/07/19 06:30 Creatinine 0.65 mg/dL (0.52-1.25) 05/07/19 06:30 Est GFR ( Amer) > 60 (>60) 05/07/19 06:30 Est GFR (MDRD) Non-Af > 60 (>60) 05/07/19 06:30 Glucose 97 mg/dL (75-110) 05/07/19 06:30 Calcium 8.5 mg/dL (8.4-10.2) 05/07/19 06:30 Magnesium 2.1 mg/dL (1.6-2.3) 05/04/19 04:00 Total Bilirubin 1.0 mg/dL (0.2-1.3) 05/07/19 06:30 Direct Bilirubin 0.2 mg/dL (0.0-0.4) 05/07/19 06:30 Neonat Total Bilirubin Not Reportable 05/07/19 06:30 Neonat Direct Bilirubin Not Reportable 05/07/19 06:30 Neonat Indirect Bili Not Reportable 05/07/19 06:30 AST 35 U/L (17-59) 05/07/19 06:30 ALT 21 U/L (<50) 05/07/19 06:30 Alkaline Phosphatase 108 U/L (38-126) 05/07/19 06:30 Lactate Dehydrogenase 329 U/L (120-246) H 05/05/19 16:30 Creatine Kinase 108 U/L (55-170) 05/03/19 12:45 Troponin I < 0.012 ng/mL 05/03/19 12:45 Total Protein 7.5 g/dL (6.3-8.2) 05/07/19 06:30 Albumin 3.6 g/dL (3.5-5.0) 05/07/19 06:30 Urine Color YELLOW 05/04/19 03:50 Urine Appearance CLEAR 05/04/19 03:50 Urine pH 7.0 (5.0-9.0) 05/04/19 03:50 Ur Specific Orange 1.010 05/04/19 03:50 Urine Protein NEGATIVE mg/dL (NEGATIVE) 05/04/19 03:50 Urine Glucose (UA) NEGATIVE mg/dL (NEGATIVE) 05/04/19 03:50 Urine Ketones NEGATIVE mg/dL (NEGATIVE) 05/04/19 03:50 Urine Blood NEGATIVE (NEGATIVE) 05/04/19 03:50 Urine Nitrite NEGATIVE (NEGATIVE) 05/04/19 03:50 Urine Bilirubin NEGATIVE (NEGATIVE) 05/04/19 03:50 Urine Urobilinogen 2.0 mg/dL (<2.0) H 05/04/19 03:50 Ur Leukocyte Esterase NEGATIVE (NEGATIVE) 05/04/19 03:50 Urine Mucus (Auto) RARE /LPF 05/04/19 03:50 Urine Ascorbic Acid NEGATIVE (NEGATIVE) 05/04/19 03:50 05/03/19 12:45 Troponin I < 0.012 Impressions: Chest X-Ray 05/03/19 11:38 IMPRESSION: NO ACUTE RADIOGRAPHIC FINDING IN THE CHEST. Chest X-Ray 05/05/19 00:00 IMPRESSION: New right basilar airspace disease worrisome for pneumonia. Chest X-Ray 05/08/19 00:00 IMPRESSION: Improved bibasilar opacities that could represent atelectasis or multifocal pneumonia. Plan Plan of Treatment: The patient is discharged home in stable condition. He is advised to follow-up with his primary care provider within [address] Stapleton as scheduled. He is instructed to drink plenty of water and avoid known triggers. Advised to take his medications as prescribed. He is encouraged to return to the emergency department as needed for concerning symptoms. Time Spent: Greater than 30 Minutes Stroke Is this a Stroke Patient?: No Acute Heart Failure - Is this a Heart Failure Patient?: No
[2019-05-11 12:48] VITALS: BP 130/76
== END 2019-05-11 13:35 | disposition home or self-care (01) | DRG 812 ==
LOC: ER 10:55 → EH 17:51 → 3S 21:38
PROVIDERS: ADMIT Internal Medicine; ATTEND Internal Medicine
DX: D57.01 Hb-SS disease with acute chest syndrome (principal); F32.9 Major depressive disorder, single episode, unspecified; J02.9 Acute pharyngitis, unspecified; D58.2 Other hemoglobinopathies; Z79.891 Long term (current) use of opiate analgesic; Z79.899 Other long term (current) drug therapy; Z88.6 Allergy status to analgesic agent; Z88.1 Allergy status to other antibiotic agents; Z91.040 Latex allergy status; Z88.8 Allergy status to other drugs, medicaments and biological substances; Z91.018 Allergy to other foods; Z87.891 Personal history of nicotine dependence; Z82.49 Family history of ischemic heart disease and other diseases of the circulatory system
CPT/HCPCS: 36415; 36591; 71045; 71046; 80048; 80053; 81001; 82550; 83615; 83735; 84484; 85025; 85027; 85045; 85610; 85730; 87040; 93005; 93010; 94799; 96361; 96374; 96375; 96376; 99285; J0456; J0696; J1170; J1200; J1642; J7030; J7060

== ENCOUNTER 2019-05-12 13:17 | Outpatient (CLI) | payer MEDICARE, MEDICAID ==
[2019-05-12] MEDS ORDERED: DIPHENHYDRAMINE HCL 25 MG in NORMAL SALINE 50 ML IV PRN (13:31)
[2019-05-12] MEDS ORDERED: NORMAL SALINE 1000 ML 1,000 ML IV PRN (13:32)
[2019-05-12] MEDS ORDERED: HYDROMORPHONE HCL INJ/PF 2 MG/ML AMPULE IV PRN (13:33)
[2019-05-12 13:57] VITALS: BP 139/72
== END 2019-05-12 15:36 | disposition home or self-care (01) ==
LOC: II 13:17 → 5TH 13:20 → II 15:36
PROVIDERS: ATTEND Internal Medicine
DX: D57.1 Sickle-cell disease without crisis (principal); E86.0 Dehydration; R52 Pain, unspecified
CPT/HCPCS: 96365; 96375; 96361; J1200; J1170; J1642

== ENCOUNTER 2019-05-13 09:00 | Outpatient (CLI) | payer MEDICARE, MEDICAID ==
[2019-05-13 09:16] VITALS: BP 122/74
== END 2019-05-13 11:01 | disposition home or self-care (01) ==
LOC: II 09:00 → 5TH 09:03 → II 11:01
PROVIDERS: ATTEND Internal Medicine
DX: D57.1 Sickle-cell disease without crisis (principal); E86.0 Dehydration; R52 Pain, unspecified
CPT/HCPCS: 96365; 96375; 96361; J1200; J1170; J1642

== ENCOUNTER 2019-05-14 08:52 | Outpatient (CLI) | payer MEDICARE, MEDICAID ==
[2019-05-14 09:22] VITALS: BP 120/69
== END 2019-05-14 10:38 | disposition home or self-care (01) ==
LOC: II 08:52 → 5TH 08:53 → II 10:38
PROVIDERS: ATTEND Internal Medicine
DX: D57.1 Sickle-cell disease without crisis (principal); E86.0 Dehydration; R52 Pain, unspecified
CPT/HCPCS: 96365; 96375; 96361; J1200; J1170; J1642

== ENCOUNTER 2019-05-15 08:47 | Outpatient (CLI) | payer MEDICARE, MEDICAID ==
[2019-05-15] MEDS ORDERED: DIPHENHYDRAMINE HCL 25 MG in NORMAL SALINE 50 ML IV PRN (08:48)
[2019-05-15] MEDS ORDERED: NORMAL SALINE 1000 ML 1,000 ML IV PRN (08:49)
[2019-05-15] MEDS ORDERED: HYDROMORPHONE HCL INJ/PF 2 MG/ML AMPULE IV PRN (08:51)
[2019-05-15 09:04] VITALS: BP 128/78
== END 2019-05-15 11:02 | disposition home or self-care (01) ==
LOC: II 08:47 → 5TH 08:50 → II 11:02
PROVIDERS: ATTEND Internal Medicine
DX: D57.1 Sickle-cell disease without crisis (principal); E86.0 Dehydration; R52 Pain, unspecified
CPT/HCPCS: 96365; 96375; 96361; J1200; J1170; J1642

== ENCOUNTER → 2019-05-18 | Outpatient (CLI) | payer MEDICARE, MEDICAID ==
[~2019-05-18] MED LIST changes: -DIPHENHYDRAMINE HCL 25 MG in NORMAL SALINE 50 ML IV PRN; +DIPHENHYDRAMINE HCL 50 MG/ML VIAL ONE; -HYDROMORPHONE HCL INJ/PF 2 MG/ML AMPULE IV PRN; +HYDROMORPHONE HCL INJ/PF 2 MG/ML AMPULE ONE
[2019-05-18 15:44] VITALS: BP 118/79
== END ==
LOC: ASU 15:00
PROVIDERS: ATTEND Internal Medicine
DX: D57.1 Sickle-cell disease without crisis (principal); E86.0 Dehydration; R52 Pain, unspecified
CPT/HCPCS: 36591; 96374; 96375; J1200; J1170; J1642

== ENCOUNTER 2019-05-19 09:52 | Outpatient (CLI) | payer MEDICARE, MEDICAID ==
[~2019-05-19 09:52] MED LIST changes: +DIPHENHYDRAMINE HCL 25 MG in NORMAL SALINE 50 ML IV PRN; -DIPHENHYDRAMINE HCL 50 MG/ML VIAL ONE; +HYDROMORPHONE HCL INJ/PF 2 MG/ML AMPULE IV PRN; -HYDROMORPHONE HCL INJ/PF 2 MG/ML AMPULE ONE
[2019-05-19 10:21] VITALS: BP 123/83
== END 2019-05-19 12:00 | disposition home or self-care (01) ==
LOC: II 09:52 → 5TH 09:54 → II 12:00
PROVIDERS: ATTEND Internal Medicine
DX: D57.1 Sickle-cell disease without crisis (principal); E86.0 Dehydration; R52 Pain, unspecified
CPT/HCPCS: 96365; 96375; 96361; J1200; J1170; J1642

== ENCOUNTER 2019-05-20 08:38 | Outpatient (CLI) | payer MEDICARE, MEDICAID ==
[2019-05-20 08:50] VITALS: BP 112/69
[2019-05-20] MEDS ORDERED: DIPHENHYDRAMINE HCL 25 MG in NORMAL SALINE 50 ML IV PRN (08:51)
[2019-05-20] MEDS ORDERED: NORMAL SALINE 1000 ML 1,000 ML IV PRN (08:52)
[2019-05-20] MEDS ORDERED: HYDROMORPHONE HCL INJ/PF 2 MG/ML AMPULE IV PRN (08:52)
== END 2019-05-20 10:27 | disposition home or self-care (01) ==
LOC: II 08:38 → 5TH 08:43 → II 10:27
PROVIDERS: ATTEND Internal Medicine
DX: D57.1 Sickle-cell disease without crisis (principal); E86.0 Dehydration; R52 Pain, unspecified
CPT/HCPCS: 96365; 96375; 96361; J1200; J1170; J1642

== ENCOUNTER 2019-05-21 08:27 | Outpatient (CLI) | payer MEDICARE, MEDICAID ==
[2019-05-21 08:42] VITALS: BP 132/89
[2019-05-21] MEDS ORDERED: DIPHENHYDRAMINE HCL 25 MG in NORMAL SALINE 50 ML IV PRN (08:53)
[2019-05-21] MEDS ORDERED: NORMAL SALINE 1000 ML 1,000 ML IV PRN (08:54)
[2019-05-21] MEDS ORDERED: HYDROMORPHONE HCL INJ/PF 2 MG/ML AMPULE IV PRN (08:55)
== END 2019-05-21 10:09 | disposition home or self-care (01) ==
LOC: II 08:27 → 5TH 08:27 → II 10:09
PROVIDERS: ATTEND Internal Medicine
DX: D57.1 Sickle-cell disease without crisis (principal); E86.0 Dehydration; R52 Pain, unspecified
CPT/HCPCS: 96365; 96375; 96361; J1200; J1170; J1642

== ENCOUNTER 2019-05-25 18:44 | Outpatient (CLI) | payer MEDICARE, MEDICAID ==
[2019-05-25] MEDS ORDERED: DIPHENHYDRAMINE HCL 50 MG/ML VIAL IV ONE (20:15)
[2019-05-25] MEDS ORDERED: HYDROMORPHONE HCL INJ/PF 2 MG/ML AMPULE IV ONE (20:30)
[2019-05-25] MEDS ORDERED: NORMAL SALINE 1000 ML 1,000 ML IV ONE (21:00)
[2019-05-25 22:52] VITALS: BP 126/75
== END 2019-05-25 22:56 | disposition home or self-care (01) ==
LOC: II 18:44 → 3S 18:51 → II 22:56
PROVIDERS: ATTEND Internal Medicine
DX: D57.1 Sickle-cell disease without crisis (principal); E86.0 Dehydration; R52 Pain, unspecified
CPT/HCPCS: J1200; J1170; J7030; J1642; 96361; 96374; 96375

== ENCOUNTER 2019-05-26 11:14 | Outpatient (CLI) | payer MEDICARE, MEDICAID ==
[2019-05-26] MEDS ORDERED: DIPHENHYDRAMINE HCL 25 MG in NORMAL SALINE 50 ML IV PRN (11:26)
[2019-05-26] MEDS ORDERED: HYDROMORPHONE HCL INJ/PF 2 MG/ML AMPULE IV PRN (11:27)
[2019-05-26] MEDS ORDERED: NORMAL SALINE 1000 ML 1,000 ML IV ONE (12:00)
[2019-05-26 13:41] VITALS: BP 163/95
[2019-05-26 14:25] LABS: HEMATOCRIT 29.3 % (37.9-51.0); HEMOGLOBIN 10.1 g/dL (13.5-17.0); MEAN CORPUSCULAR HEMOGLOBIN 31.9 pg (27.0-33.4); MEAN CORPUSCULAR HGB CONC 34.4 g/dL (32.0-36.0); MEAN CORPUSCULAR VOLUME 93 fl (80-97); PLATELET COUNT 530 10^3/uL (150-450); RED BLOOD COUNT 3.15 10^6/uL (4.35-5.55); RED CELL DISTRIBUTION WIDTH 22.8 % (11.5-14.0); WHITE BLOOD COUNT 7.4 10^3/uL (4.0-10.5)
[2019-05-26 14:27] LABS: ANION GAP 10 (5-19); BLOOD UREA NITROGEN 5 mg/dL (7-20); CALCIUM 8.6 mg/dL (8.4-10.2); CARBON DIOXIDE 28 mmol/L (22-30); CHLORIDE 104 mmol/L (98-107); GLUCOSE 126 mg/dL (75-110); POTASSIUM 3.7 mmol/L (3.6-5.0)
[2019-05-26 14:54] LABS: ABSOLUTE LYMPHOCYTES# (MANUAL) 2.8 10^3/uL (0.5-4.7); ABSOLUTE MONOCYTES # (MANUAL) 0.7 10^3/uL (0.1-1.4); BASOPHILS % (MANUAL) 1 % (0-2); EOSINOPHILS % (MANUAL) 0 % (0-6); LYMPHOCYTES % (MANUAL) 35 % (13-45); MONOCYTES % (MANUAL) 9 % (3-13); NUCLEATED RED BLOOD CELLS 1 /100 WBC (0); SEGMENTED NEUTROPHILS % (MAN) 52 % (42-78); TOTAL CELLS COUNTED 100
[2019-05-26 14:56] LABS: ANISOCYTOSIS 3+; HOWELL-JOLLY BODIES PRESENT; PAPPENHEIMER BODIES PRESENT; PLATELET COMMENT INCREASED; POIKILOCYTOSIS SLIGHT; POLYCHROMASIA 2+; SICKLE RED CELLS SLIGHT; TARGET CELLS 1+; TEAR DROP CELLS SLIGHT
== END 2019-05-26 15:30 | disposition home or self-care (01) ==
LOC: II 11:14 → 5TH 11:15 → II 15:30
PROVIDERS: ATTEND Internal Medicine
DX: D57.1 Sickle-cell disease without crisis (principal); E86.0 Dehydration; R52 Pain, unspecified
CPT/HCPCS: 36415; 85025; 80048; 96365; 96375; 96361; J1200; J1170; J1642

== ENCOUNTER 2019-05-27 11:29 | Outpatient (CLI) | payer MEDICARE, MEDICAID ==
[2019-05-27 11:46] VITALS: BP 120/76
== END 2019-05-27 13:15 | disposition home or self-care (01) ==
LOC: II 11:29 → 5TH 11:30 → II 13:15
PROVIDERS: ATTEND Internal Medicine
DX: D57.1 Sickle-cell disease without crisis (principal); E86.0 Dehydration; R52 Pain, unspecified
CPT/HCPCS: 96365; 96375; 96361; J1200; J1170; J1642

== ENCOUNTER 2019-05-28 09:53 | Outpatient (CLI) | payer MEDICARE, MEDICAID ==
[2019-05-28] MEDS ORDERED: DIPHENHYDRAMINE HCL 25 MG in NORMAL SALINE 50 ML IV PRN (10:00)
[2019-05-28] MEDS ORDERED: NORMAL SALINE 1000 ML 1,000 ML IV PRN (10:00)
[2019-05-28] MEDS ORDERED: HYDROMORPHONE HCL INJ/PF 2 MG/ML AMPULE IV PRN (10:05)
[2019-05-28 11:46] VITALS: BP 127/74
== END 2019-05-28 13:18 | disposition home or self-care (01) ==
LOC: II 09:53 → 5TH 09:56 → II 13:18
PROVIDERS: ATTEND Internal Medicine
DX: D57.1 Sickle-cell disease without crisis (principal); E86.0 Dehydration; R52 Pain, unspecified
CPT/HCPCS: 96365; 96375; 96361; J1200; J1170; J1642

== ENCOUNTER 2019-05-29 10:51 | Outpatient (CLI) | payer MEDICARE, MEDICAID ==
[2019-05-29 11:05] VITALS: BP 124/79
== END 2019-05-29 13:12 | disposition home or self-care (01) ==
LOC: II 10:51 → 5TH 10:54 → II 13:12
PROVIDERS: ATTEND Internal Medicine
DX: D57.1 Sickle-cell disease without crisis (principal); E86.0 Dehydration; R52 Pain, unspecified
CPT/HCPCS: 96365; 96375; 96361; J1170; J1642; J1200

== ENCOUNTER 2019-06-02 14:45 | Outpatient (CLI) | payer MEDICARE, MEDICAID ==
[2019-06-02 15:10] VITALS: BP 119/70
== END 2019-06-02 16:48 | disposition home or self-care (01) ==
LOC: II 14:45 → 5TH 14:47 → II 16:48
PROVIDERS: ATTEND Internal Medicine
DX: D57.1 Sickle-cell disease without crisis (principal); E86.0 Dehydration; R52 Pain, unspecified
CPT/HCPCS: 96365; 96375; 96361; J1200; J1170; J1642

== ENCOUNTER 2019-06-03 09:58 | Outpatient (CLI) | payer MEDICARE, MEDICAID ==
[2019-06-03 10:08] VITALS: BP 138/86
[2019-06-03] MEDS ORDERED: DIPHENHYDRAMINE HCL 25 MG in NORMAL SALINE 50 ML IV PRN (10:11)
[2019-06-03] MEDS ORDERED: NORMAL SALINE 1000 ML 1,000 ML IV PRN (10:11)
[2019-06-03] MEDS ORDERED: HYDROMORPHONE HCL INJ/PF 2 MG/ML AMPULE IV PRN (10:12)
== END 2019-06-03 11:33 | disposition home or self-care (01) ==
LOC: II 09:58 → 5TH 10:00 → II 11:33
PROVIDERS: ATTEND Internal Medicine
DX: D57.1 Sickle-cell disease without crisis (principal); E86.0 Dehydration; R52 Pain, unspecified
CPT/HCPCS: 96365; 96375; 96361; J1200; J1170; J1642

== ENCOUNTER 2019-06-04 08:53 | Outpatient (CLI) | payer MEDICARE, MEDICAID ==
[2019-06-04] MEDS ORDERED: NORMAL SALINE 1000 ML 1,000 ML IV PRN (09:11)
[2019-06-04] MEDS ORDERED: DIPHENHYDRAMINE HCL 25 MG in NORMAL SALINE 50 ML IV PRN (09:11)
[2019-06-04] MEDS ORDERED: HYDROMORPHONE HCL INJ/PF 2 MG/ML AMPULE IV PRN ×2 (09:11→09:30)
[2019-06-04 09:21] VITALS: BP 128/88
== END 2019-06-04 10:34 | disposition home or self-care (01) ==
LOC: II 08:53 → 5TH 08:55 → II 10:34
PROVIDERS: ATTEND Internal Medicine
DX: D57.1 Sickle-cell disease without crisis (principal); E86.0 Dehydration; R52 Pain, unspecified
CPT/HCPCS: 96365; 96375; 96361; J1200; J1170; J1642

== ENCOUNTER 2019-06-05 14:07 | Outpatient (CLI) | payer MEDICARE, MEDICAID ==
[2019-06-05 14:20] VITALS: BP 121/83
[2019-06-05] MEDS ORDERED: DIPHENHYDRAMINE HCL 25 MG in NORMAL SALINE 50 ML IV PRN (14:20)
[2019-06-05] MEDS ORDERED: HYDROMORPHONE HCL INJ/PF 2 MG/ML AMPULE IV PRN (14:24)
[2019-06-05] MEDS: NORMAL SALINE 1000 ML 1,000 ML IV PRN ×2 (14:25→14:34)
== END 2019-06-05 16:00 | disposition home or self-care (01) ==
LOC: II 14:07 → 5TH 14:16 → II 16:00
PROVIDERS: ATTEND Internal Medicine
DX: D57.1 Sickle-cell disease without crisis (principal); E86.0 Dehydration; R52 Pain, unspecified
CPT/HCPCS: 96365; 96375; 96360; J1200; J1170; J1642; 96361

== ENCOUNTER 2019-06-08 03:39 | Emergency (ER) | payer MEDICARE, MEDICAID ==
[2019-06-08] MEDS ORDERED: NORMAL SALINE 1000 ML 1,000 ML IV ONE (04:04)
[2019-06-08] MEDS ORDERED: HYDROMORPHONE HCL INJ/PF 2 MG/ML AMPULE IV ONE ×2 (04:05→05:16)
[2019-06-08] MEDS ORDERED: DIPHENHYDRAMINE HCL 50 MG/ML VIAL IV ONE (04:06)
--- NOTE | 2019-06-08 04:07 | ER Document Report ---
Entered by CORKY KIM SCRIBE 06/08/19 0401 Acting as scribe for:LIBBY LARA IV, MD ED General - General Chief Complaint: Sickle Cell Crisis Stated Complaint: JOINT PAIN,HEADACHE,CHEST PAIN Time Seen by Provider: 06/08/19 03:58 Primary Care Provider: BETH STAPLETON MD [Primary Care Provider] - Follow up as needed Mode of Arrival: Ambulatory Information source: Patient Notes: This 38 year old male patient presents to the ED today with complaints of sickle cell crisis that began x1 day ago. Patient reports reproducible chest pain, right hip pain, and joint pain. Patient states that he took Oxycodone without relief. TRAVEL OUTSIDE OF THE [place] IN LAST 30 DAYS: No - Related Data Allergies/Adverse Reactions: famotidine [From Pepcid] Allergy (Severe, Verified 05/03/19 14:14) Anaphylaxis ketorolac tromethamine [From Toradol] Allergy (Severe, Verified 05/03/19 14:14) levofloxacin [From Levaquin] Allergy (Severe, Verified 05/03/19 14:14) meperidine HCl [From Demerol] Allergy (Severe, Verified 05/03/19 14:14) morphine [Morphine] Allergy (Severe, Verified 05/03/19 14:14) tramadol HCl [From Ultram] Allergy (Severe, Verified 05/03/19 14:14) amoxicillin [Amoxicillin] Allergy (Verified 05/03/19 14:14) fentanyl [Fentanyl] Allergy (Verified 05/03/19 14:14) latex [Latex] Allergy (Verified 05/03/19 14:14) ondansetron HCl [From Zofran] Allergy (Verified 05/03/19 14:14) Pork/Porcine Containing Products Allergy (Verified 05/03/19 14:14) promethazine Allergy (Verified 05/03/19 14:14) Home Medications: oxycodone Past Medical History - General Information source: Patient, [facility] Records - Social History Smoking Status: Never Smoker Cigarette use (# per day): No Chew tobacco use (# tins/day): No Smoking Education Provided: No Family History: Reviewed & Not Pertinent, Hypertension Patient has suicidal ideation: No Patient has homicidal ideation: No Pulmonary Medical History: Reports: Hx Pneumonia Musculoskeletal Medical History: Reports Hx Musculoskeletal Deformity - right hip avascular necrosis Psychiatric Medical History: Reports: Hx Depression Past Surgical History: Reports: Hx Appendectomy, Hx Vascular Surgery - L port placement - Immunizations Immunizations up to date: Yes Hx Diphtheria, Pertussis, Tetanus Vaccination: No Hx Pneumococcal Vaccination: 02/20/11 Review of Systems - Review of Systems Constitutional: No symptoms reported EENT: No symptoms reported Cardiovascular: See HPI, Chest pain - reproducible Respiratory: No symptoms reported Gastrointestinal: No symptoms reported Genitourinary: No symptoms reported Male Genitourinary: No symptoms reported Musculoskeletal: See HPI, Joint pain, Other - Right hip pain Skin: No symptoms reported Hematologic/Lymphatic: No symptoms reported Neurological/Psychological: No symptoms reported -: Yes All other systems reviewed and negative Physical Exam - Vital signs Vitals: Temp Pulse Resp BP Pulse Ox 98.3 F 77 16 133/87 H 100 06/08/19 03:43 06/08/19 03:43 06/08/19 03:43 06/08/19 03:43 06/08/19 03:43 - General General appearance: Alert - HEENT Head: Normocephalic, Atraumatic Eyes: Normal Pupils: PERRL - Respiratory Respiratory status: No respiratory distress Chest status: Nontender Breath sounds: Normal Chest palpation: Normal - Cardiovascular Rhythm: Regular Heart sounds: Normal auscultation Murmur: No Friction rub: No Gallop: None auscultated - Abdominal Inspection: Normal Distension: No distension Bowel sounds: Normal Tenderness: Nontender Organomegaly: No organomegaly - Back Back: Normal, Nontender - Extremities General upper extremity: Normal inspection General lower extremity: Normal inspection - Neurological Neuro grossly intact: Yes - Psychological Associated symptoms: Normal affect, Normal mood - Skin Skin Temperature: Warm Skin Moisture: Dry Skin Color: Normal Course - Re-evaluation Re-evalutation: 06/08/19 05:30 This MD went into the patient's room to check and see how he was in terms with his pain. Patient stated he was still having a significant amount of pain. This MD informed the patient that I would order more pain medication. The patient refused the additional pain medication saying that it made him too drowsy. This MD informed the patient that if the does not want any further treatment for his pain then he will be discharged and can follow-up with his regular doctor. - Vital Signs Vital signs: Temp Pulse Resp BP Pulse Ox 98.3 F 77 16 133/87 H 100 06/08/19 03:43 06/08/19 03:43 06/08/19 03:43 06/08/19 03:43 06/08/19 03:43 - Laboratory Result Diagrams: 06/08/19 04:09 06/08/19 04:09 Laboratory results interpreted by me: 06/08/19 04:09 Total Bilirubin 2.1 H Discharge - Discharge Clinical Impression: Sickle cell crisis Condition: Good Disposition: HOME, SELF-CARE Additional Instructions: Sickle Cell Crisis You have "sickle cell crisis." Sickle cell disease is caused by abnormal hemoglobin. This hemoglobin can deform red blood cells into a sickle shape. These abnormal blood cells can block blood vessels. This causes the pain of sickle cell crisis. Sickle cell crisis can occur any time. But attacks are more likely with acute infection, dehydration, or altitude change. A crisis usually causes pain in the legs, back, abdomen, and chest. Sometimes the pain may ease and return later. The usual treatment is oxygen, pain medication, IV fluids, and treatment of infection. Attacks may take a couple of days to resolve. Return if the pain becomes more severe, or if there are new symptoms. Referrals: BETH STAPLETON MD [Primary Care Provider] - Follow up as needed I personally performed the services described in the documentation, reviewed and edited the documentation which was dictated to the scribe in my presence, and it accurately records my words and actions.
[2019-06-08 04:59] LABS: HEMATOCRIT 24.9 % (37.9-51.0); HEMOGLOBIN 8.6 g/dL (13.5-17.0); MEAN CORPUSCULAR HEMOGLOBIN 33.4 pg (27.0-33.4); MEAN CORPUSCULAR HGB CONC 34.6 g/dL (32.0-36.0); PLATELET COUNT 196 10^3/uL (150-450); RED BLOOD COUNT 2.57 10^6/uL (4.35-5.55); RED CELL DISTRIBUTION WIDTH 24.5 % (11.5-14.0); RETICULOCYTE COUNT (AUTO) 8.53 % (0.66-2.85); WHITE BLOOD COUNT 6.7 10^3/uL (4.0-10.5)
[2019-06-08 05:08] LABS: ALBUMIN 4.1 g/dL (3.5-5.0); ALKALINE PHOSPHATASE 102 U/L (38-126); ANION GAP 9 (5-19); ASPARTATE AMINO TRANSFERASE 32 U/L (17-59); BILIRUBIN,DIRECT 0.1 mg/dL (0.0-0.4); BILIRUBIN,TOTAL 2.1 mg/dL (0.2-1.3); BLOOD UREA NITROGEN 13 mg/dL (7-20); CALCIUM 8.6 mg/dL (8.4-10.2); CARBON DIOXIDE 27 mmol/L (22-30); CHLORIDE 106 mmol/L (98-107); GLUCOSE 95 mg/dL (75-110); POTASSIUM 3.7 mmol/L (3.6-5.0); TOTAL PROTEIN 8.2 g/dL (6.3-8.2)
[2019-06-08 05:17] LABS: MEAN CORPUSCULAR VOLUME 97 fl (80-97)
[2019-06-08 05:41] VITALS: BP 163/101
--- NOTE | 2019-06-08 05:53 | RADIOLOGY REPORT (SQ) ---
Chest one view on 06/08/2019 at 5:03 AM CLINICAL INDICATION: Chest pain COMPARISON: 05/08/2019 FINDINGS: Left IJ Port-A-Cath tip is in the SVC. There has been improvement in bibasilar opacities consistent with improved atelectasis and/or pneumonia. Residual basilar opacities may or be chronic in nature. Heart is borderline in size. The lungs are otherwise clear. Hilar and mediastinal contours are within normal limits. IMPRESSION: Improved basilar atelectasis and/or pneumonia.
[2019-06-08 06:03] LABS: ANISOCYTOSIS 3+; HYPOCHROMASIA 1+; POIKILOCYTOSIS 2+; SICKLE RED CELLS 2+
[2019-06-08 06:04] LABS: PLATELET COMMENT ADEQUATE
[2019-06-10 13:19] LABS: ABSOLUTE LYMPHOCYTES# (MANUAL) 1.7 10^3/uL (0.5-4.7); ABSOLUTE MONOCYTES # (MANUAL) 0.6 10^3/uL (0.1-1.4); BASOPHILS % (MANUAL) 0 % (0-2); EOSINOPHILS % (MANUAL) 3 % (0-6); LYMPHOCYTES % (MANUAL) 25 % (13-45); MONOCYTES % (MANUAL) 9 % (3-13); NUCLEATED RED BLOOD CELLS 5 /100 WBC (0); SEGMENTED NEUTROPHILS % (MAN) 63 % (42-78); TOTAL CELLS COUNTED 100
== END 2019-06-08 06:05 | disposition home or self-care (01) ==
LOC: ER 03:39
DX: D57.00 Hb-SS disease with crisis, unspecified (principal); R07.9 Chest pain, unspecified; M25.551 Pain in right hip; Z79.891 Long term (current) use of opiate analgesic; Z88.8 Allergy status to other drugs, medicaments and biological substances; Z88.1 Allergy status to other antibiotic agents; Z88.6 Allergy status to analgesic agent; Z88.5 Allergy status to narcotic agent; Z88.0 Allergy status to penicillin; Z91.040 Latex allergy status; Z91.018 Allergy to other foods
CPT/HCPCS: 36591; 99284; 96361; 96374; 96375; 36415; 85025; 85045; 80053; 71045; J1200; J1170; J7030; J1642

== ENCOUNTER 2019-06-09 12:09 | Outpatient (CLI) | payer MEDICARE, MEDICAID ==
[2019-06-09] MEDS ORDERED: NORMAL SALINE 1000 ML 1,000 ML IV PRN (12:15)
[2019-06-09] MEDS ORDERED: DIPHENHYDRAMINE HCL 25 MG in NORMAL SALINE 50 ML IV PRN (12:15)
[2019-06-09] MEDS ORDERED: HYDROMORPHONE HCL INJ/PF 2 MG/ML AMPULE IV PRN (12:16)
[2019-06-09 12:33] VITALS: BP 130/77
== END 2019-06-09 13:59 | disposition home or self-care (01) ==
LOC: II 12:09 → 5TH 12:11 → II 13:59
PROVIDERS: ATTEND Internal Medicine
DX: D57.1 Sickle-cell disease without crisis (principal); E86.0 Dehydration; R52 Pain, unspecified
CPT/HCPCS: 96365; 96375; 96360; J1200; J1170; J1642; 96361

== ENCOUNTER 2019-06-10 08:27 | Outpatient (CLI) | payer MEDICARE, MEDICAID ==
[~2019-06-10 08:27] MED LIST changes: +DIPHENHYDRAMINE HCL 25 MG in NORMAL SALINE 50 ML INJ PRN; -DIPHENHYDRAMINE HCL 25 MG in NORMAL SALINE 50 ML IV PRN
[2019-06-10 08:39] VITALS: BP 124/72
== END 2019-06-10 10:00 | disposition home or self-care (01) ==
LOC: II 08:27 → 5TH 08:29 → II 10:00
PROVIDERS: ATTEND Internal Medicine
DX: D57.1 Sickle-cell disease without crisis (principal); E86.0 Dehydration; R52 Pain, unspecified
CPT/HCPCS: 96365; 96375; 96361; J1200; J1170; J1642; 96360

== ENCOUNTER 2019-06-11 08:45 | Outpatient (CLI) | payer MEDICARE, MEDICAID ==
[~2019-06-11 08:45] MED LIST changes: -DIPHENHYDRAMINE HCL 25 MG in NORMAL SALINE 50 ML INJ PRN; +DIPHENHYDRAMINE HCL 25 MG in NORMAL SALINE 50 ML IV PRN
[2019-06-11 08:59] VITALS: BP 136/83
== END 2019-06-11 10:27 | disposition home or self-care (01) ==
LOC: II 08:45 → 5TH 08:47 → II 10:27
PROVIDERS: ATTEND Internal Medicine
DX: D57.1 Sickle-cell disease without crisis (principal); E86.0 Dehydration; R52 Pain, unspecified
CPT/HCPCS: 96365; 96375; 96361; J1200; J1170; J1642

== ENCOUNTER 2019-06-12 14:02 | Outpatient (CLI) | payer MEDICARE, MEDICAID ==
[2019-06-12] MEDS ORDERED: DIPHENHYDRAMINE HCL 25 MG in NORMAL SALINE 50 ML IV PRN (14:12)
[2019-06-12] MEDS ORDERED: NORMAL SALINE 1000 ML 1,000 ML IV PRN (14:12)
[2019-06-12] MEDS ORDERED: HYDROMORPHONE HCL INJ/PF 2 MG/ML AMPULE IV PRN (14:14)
[2019-06-12 14:36] VITALS: BP 135/90
== END 2019-06-12 15:31 | disposition home or self-care (01) ==
LOC: II 14:02 → 5TH 14:02 → II 15:31
PROVIDERS: ATTEND Internal Medicine
DX: D57.1 Sickle-cell disease without crisis (principal); E86.0 Dehydration; R52 Pain, unspecified
CPT/HCPCS: 96365; 96375; 96361; J1200; J1170; J1642

== ENCOUNTER → 2019-06-15 | Outpatient (CLI) | payer MEDICARE, MEDICAID ==
[~2019-06-15] MED LIST changes: -DIPHENHYDRAMINE HCL 25 MG in NORMAL SALINE 50 ML IV PRN; +DIPHENHYDRAMINE HCL 50 MG/ML VIAL ONE; +HYDROMORPHONE HCL INJ/PF 2 MG/ML AMPULE IV ONE; -HYDROMORPHONE HCL INJ/PF 2 MG/ML AMPULE IV PRN; +HYDROMORPHONE HCL INJ/PF 2 MG/ML AMPULE ONE; -NORMAL SALINE 1000 ML 1,000 ML IV PRN
[2019-06-15 14:50] VITALS: BP 129/79
== END ==
LOC: ASU 14:21
PROVIDERS: ATTEND Internal Medicine
DX: D57.1 Sickle-cell disease without crisis (principal); E86.0 Dehydration; R52 Pain, unspecified
CPT/HCPCS: 96374; 96375; 96361; J1200; J1170; J1642; 96365; 96366

== ENCOUNTER 2019-06-16 13:24 | Outpatient (CLI) | payer MEDICARE, MEDICAID ==
[2019-06-16 13:44] VITALS: BP 125/83
[2019-06-16] MEDS ORDERED: DIPHENHYDRAMINE HCL 25 MG in NORMAL SALINE 50 ML IV PRN (13:59)
[2019-06-16] MEDS ORDERED: HYDROMORPHONE HCL INJ/PF 2 MG/ML AMPULE IV PRN (14:00)
[2019-06-16] MEDS ORDERED: NORMAL SALINE 1000 ML 1,000 ML IV PRN (14:00)
== END 2019-06-16 15:22 | disposition home or self-care (01) ==
LOC: II 13:24 → 5TH 13:27 → II 15:22
PROVIDERS: ATTEND Internal Medicine
DX: D57.1 Sickle-cell disease without crisis (principal); E86.0 Dehydration; R52 Pain, unspecified
CPT/HCPCS: 96365; 96375; 96360; J1200; J1170; J1642; 96361

== ENCOUNTER 2019-06-17 09:44 | Outpatient (CLI) | payer MEDICARE, MEDICAID ==
[~2019-06-17 09:44] MED LIST changes: +DIPHENHYDRAMINE HCL 25 MG in NORMAL SALINE 50 ML IV PRN; -DIPHENHYDRAMINE HCL 50 MG/ML VIAL ONE; -HYDROMORPHONE HCL INJ/PF 2 MG/ML AMPULE IV ONE; +HYDROMORPHONE HCL INJ/PF 2 MG/ML AMPULE IV PRN; -HYDROMORPHONE HCL INJ/PF 2 MG/ML AMPULE ONE; +NORMAL SALINE 1000 ML 1,000 ML IV PRN
[2019-06-17 10:20] VITALS: BP 133/77
== END 2019-06-17 11:30 | disposition home or self-care (01) ==
LOC: II 09:44 → 5TH 09:45 → II 11:30
PROVIDERS: ATTEND Internal Medicine
DX: D57.1 Sickle-cell disease without crisis (principal); E86.0 Dehydration; R52 Pain, unspecified
CPT/HCPCS: 96365; 96375; 96361; J1200; J1170; J1642

== ENCOUNTER 2019-06-18 08:21 | Outpatient (CLI) | payer MEDICARE, MEDICAID ==
[2019-06-18 08:36] VITALS: BP 127/87
== END 2019-06-18 10:45 | disposition home or self-care (01) ==
LOC: II 08:21 → 5TH 08:24 → II 10:45
PROVIDERS: ATTEND Internal Medicine
DX: D57.1 Sickle-cell disease without crisis (principal); E86.0 Dehydration; R52 Pain, unspecified
CPT/HCPCS: 96365; 96375; 96361; J1200; J1170; J1642

== ENCOUNTER 2019-06-19 08:20 | Outpatient (CLI) | payer MEDICARE, MEDICAID ==
[2019-06-19] MEDS ORDERED: DIPHENHYDRAMINE HCL 25 MG in NORMAL SALINE 50 ML IV PRN (08:46)
[2019-06-19] MEDS ORDERED: NORMAL SALINE 1000 ML 1,000 ML IV PRN (08:46)
[2019-06-19] MEDS ORDERED: HYDROMORPHONE HCL INJ/PF 2 MG/ML AMPULE IV PRN (08:50)
[2019-06-19] MEDS ORDERED: HYDROMORPHONE HCL INJ/PF 2 MG/ML AMPULE ONE (09:06)
[2019-06-19 10:31] VITALS: BP 124/77
== END 2019-06-19 10:20 | disposition home or self-care (01) ==
LOC: II 08:20
PROVIDERS: ATTEND Internal Medicine
DX: D57.1 Sickle-cell disease without crisis (principal); E86.0 Dehydration; R52 Pain, unspecified
CPT/HCPCS: 96365; 96375; 96361; J1200; J1170; J1642

== ENCOUNTER 2019-06-22 13:53 | Outpatient (CLI) | payer MEDICARE, MEDICAID ==
[2019-06-22] MEDS ORDERED: DIPHENHYDRAMINE HCL 50 MG/ML VIAL ONE (13:59)
[2019-06-22] MEDS: HYDROMORPHONE HCL INJ/PF 2 MG/ML AMPULE ONE ×2 (14:39→16:54)
[2019-06-22] MEDS ORDERED: NORMAL SALINE 1000 ML 1,000 ML IV PRN (15:05)
[2019-06-22 16:17] VITALS: BP 137/92
[2019-06-22] MEDS ORDERED: HYDROMORPHONE HCL INJ/PF 2 MG/ML AMPULE IV PRN (16:32)
== END 2019-06-22 15:45 | disposition home or self-care (01) ==
LOC: ASU 13:53
PROVIDERS: ATTEND Internal Medicine
DX: D57.1 Sickle-cell disease without crisis (principal); E86.0 Dehydration; R52 Pain, unspecified
CPT/HCPCS: 96374; 96375; 96361; J1200; J1170; J1642; 96365; 96366

== ENCOUNTER 2019-06-23 12:29 | Outpatient (CLI) | payer MEDICARE, MEDICAID ==
[2019-06-23] MEDS ORDERED: DIPHENHYDRAMINE HCL 25 MG in NORMAL SALINE 50 ML IV PRN (12:38)
[2019-06-23] MEDS ORDERED: HYDROMORPHONE HCL INJ/PF 2 MG/ML AMPULE IV PRN (12:39)
[2019-06-23] MEDS ORDERED: NORMAL SALINE 1000 ML 1,000 ML IV PRN (12:39)
[2019-06-23 14:15] VITALS: BP 128/79
== END 2019-06-23 14:21 | disposition home or self-care (01) ==
LOC: II 12:29 → 5TH 12:44 → II 14:21
PROVIDERS: ATTEND Internal Medicine
DX: D57.1 Sickle-cell disease without crisis (principal); E86.0 Dehydration; R52 Pain, unspecified
CPT/HCPCS: 96365; 96375; 96361; J1200; J1170; J1642

== ENCOUNTER 2019-06-24 09:29 | Outpatient (CLI) | payer MEDICARE, MEDICAID ==
[2019-06-24] MEDS ORDERED: NORMAL SALINE 1000 ML 1,000 ML IV PRN (09:30)
[2019-06-24] MEDS ORDERED: DIPHENHYDRAMINE HCL 25 MG in NORMAL SALINE 50 ML INJ PRN (09:30)
[2019-06-24] MEDS ORDERED: HYDROMORPHONE HCL INJ/PF 2 MG/ML AMPULE IV PRN (09:31)
[2019-06-24] MEDS ORDERED: DIPHENHYDRAMINE HCL 25 MG in NORMAL SALINE 50 ML IV PRN (09:34)
[2019-06-24 11:18] VITALS: BP 127/72
== END 2019-06-24 11:29 | disposition home or self-care (01) ==
LOC: II 09:29 → 5TH 09:31 → II 10:20
PROVIDERS: ATTEND Internal Medicine
DX: D57.1 Sickle-cell disease without crisis (principal); E86.0 Dehydration; R52 Pain, unspecified
CPT/HCPCS: 96365; 96375; 96361; J1200; J1170; J1642

== ENCOUNTER 2019-06-25 09:14 | Outpatient (CLI) | payer MEDICARE, MEDICAID ==
[2019-06-25 09:27] VITALS: BP 118/74
== END 2019-06-25 11:00 | disposition home or self-care (01) ==
LOC: II 09:14 → 5TH 09:17 → II 11:00
PROVIDERS: ATTEND Internal Medicine
DX: D57.1 Sickle-cell disease without crisis (principal); E86.0 Dehydration; R52 Pain, unspecified
CPT/HCPCS: 96365; 96375; 96361; J1200; J1170; J1642

== ENCOUNTER 2019-06-26 08:51 | Outpatient (CLI) | payer MEDICARE, MEDICAID ==
[2019-06-26 09:15] VITALS: BP 134/88
== END 2019-06-26 10:32 | disposition home or self-care (01) ==
LOC: II 08:51 → 5TH 08:55 → II 10:32
PROVIDERS: ATTEND Internal Medicine
DX: D57.1 Sickle-cell disease without crisis (principal); E86.0 Dehydration; R52 Pain, unspecified
CPT/HCPCS: 96365; 96375; 96361; J1200; J1170; J1642

== ENCOUNTER 2019-06-29 16:35 | Outpatient (CLI) | payer MEDICARE, MEDICAID ==
[2019-06-29] MEDS ORDERED: NORMAL SALINE 1000 ML 1,000 ML IV PRN (16:50)
[2019-06-29] MEDS ORDERED: DIPHENHYDRAMINE HCL 50 MG/ML VIAL IV ONE (17:30)
[2019-06-29] MEDS ORDERED: HYDROMORPHONE HCL INJ/PF 2 MG/ML AMPULE IV ONE (17:30)
[2019-06-29 19:19] VITALS: BP 110/72
== END 2019-06-29 19:05 | disposition home or self-care (01) ==
LOC: II 16:35 → 4S 16:38 → II 19:05
PROVIDERS: ATTEND Internal Medicine
DX: D57.1 Sickle-cell disease without crisis (principal); E86.0 Dehydration; R52 Pain, unspecified
CPT/HCPCS: J1200; J1170; J7030; 96361; 96374; 96375

== ENCOUNTER 2019-06-30 14:08 | Outpatient (CLI) | payer MEDICARE, MEDICAID ==
[2019-06-30 14:24] VITALS: BP 112/69
== END 2019-06-30 16:25 | disposition home or self-care (01) ==
LOC: II 14:08 → 5TH 14:09 → II 16:25
PROVIDERS: ATTEND Internal Medicine
DX: D57.1 Sickle-cell disease without crisis (principal); E86.0 Dehydration; R52 Pain, unspecified
CPT/HCPCS: 96365; 96375; 96361; J1200; J1170; J1642

== ENCOUNTER 2019-07-01 10:39 | Outpatient (CLI) | payer MEDICARE, MEDICAID ==
[2019-07-01 10:53] VITALS: BP 130/81
== END 2019-07-01 12:15 | disposition home or self-care (01) ==
LOC: II 10:39 → 5TH 10:52 → II 12:15
PROVIDERS: ATTEND Internal Medicine
DX: D57.1 Sickle-cell disease without crisis (principal); E86.0 Dehydration; R52 Pain, unspecified
CPT/HCPCS: 96365; 96375; 96361; J1200; J1170; J1642

== ENCOUNTER 2019-07-02 09:24 | Outpatient (CLI) | payer MEDICARE, MEDICAID ==
[2019-07-02 09:35] VITALS: BP 126/71
[2019-07-02] MEDS ORDERED: DIPHENHYDRAMINE HCL 25 MG in NORMAL SALINE 50 ML IV PRN (09:36)
[2019-07-02] MEDS ORDERED: NORMAL SALINE 1000 ML 1,000 ML IV PRN (09:36)
[2019-07-02] MEDS ORDERED: HYDROMORPHONE HCL INJ/PF 2 MG/ML AMPULE IV PRN (09:37)
== END 2019-07-02 11:31 | disposition home or self-care (01) ==
LOC: II 09:24 → 5TH 09:26 → II 11:31
PROVIDERS: ATTEND Internal Medicine
DX: D57.1 Sickle-cell disease without crisis (principal); E86.0 Dehydration; R52 Pain, unspecified
CPT/HCPCS: 96365; 96375; 96361; J1200; J1170; J1642

== ENCOUNTER 2019-07-03 08:37 | Outpatient (CLI) | payer MEDICARE, MEDICAID ==
[2019-07-03] MEDS ORDERED: HYDROMORPHONE HCL INJ/PF 2 MG/ML AMPULE IV PRN (08:46)
[2019-07-03] MEDS ORDERED: DIPHENHYDRAMINE HCL 25 MG in NORMAL SALINE 50 ML IV PRN (08:47)
[2019-07-03] MEDS ORDERED: NORMAL SALINE 1000 ML 1,000 ML IV PRN (08:48)
[2019-07-03 08:50] VITALS: BP 137/88
== END 2019-07-03 10:40 | disposition home or self-care (01) ==
LOC: II 08:37 → 5TH 08:40 → II 10:40
PROVIDERS: ATTEND Internal Medicine
DX: D57.1 Sickle-cell disease without crisis (principal); E86.0 Dehydration; R52 Pain, unspecified
CPT/HCPCS: 96365; 96375; 96361; J1200; J1170; J1642

== ENCOUNTER 2019-07-06 13:08 | Outpatient (CLI) | payer MEDICARE, MEDICAID ==
[2019-07-06] MEDS ORDERED: HYDROMORPHONE HCL INJ/PF 2 MG/ML AMPULE ONE ×2 (13:17→13:19)
[2019-07-06] MEDS ORDERED: DIPHENHYDRAMINE HCL 50 MG/ML VIAL ONE (13:17)
[2019-07-06 14:19] VITALS: BP 120/80
== END 2019-07-06 15:25 | disposition home or self-care (01) ==
LOC: ASU 13:08
PROVIDERS: ATTEND Internal Medicine
DX: D57.1 Sickle-cell disease without crisis (principal); E86.0 Dehydration; R52 Pain, unspecified
CPT/HCPCS: 96365; 96375; 96361; J1200; J1170; J1642; 96366

== ENCOUNTER 2019-07-07 08:29 | Outpatient (CLI) | payer MEDICARE, MEDICAID ==
[2019-07-07] MEDS ORDERED: NORMAL SALINE 1000 ML 1,000 ML IV PRN (08:40)
[2019-07-07] MEDS ORDERED: DIPHENHYDRAMINE HCL 25 MG in NORMAL SALINE 50 ML IV PRN (08:40)
[2019-07-07 08:47] VITALS: BP 121/75
[2019-07-07] MEDS ORDERED: HYDROMORPHONE HCL INJ/PF 2 MG/ML AMPULE IV PRN (09:00)
== END 2019-07-07 10:13 | disposition home or self-care (01) ==
LOC: II 08:29 → 5TH 08:34 → II 10:13
PROVIDERS: ATTEND Internal Medicine
DX: D57.1 Sickle-cell disease without crisis (principal); E86.0 Dehydration; R52 Pain, unspecified
CPT/HCPCS: 96365; 96375; 96361; J1200; J1170; J1642

== ENCOUNTER 2019-07-08 10:15 | Outpatient (CLI) | payer MEDICARE, MEDICAID ==
[2019-07-08] MEDS ORDERED: NORMAL SALINE 1000 ML 1,000 ML IV PRN (10:27)
[2019-07-08] MEDS ORDERED: HYDROMORPHONE HCL INJ/PF 2 MG/ML AMPULE IV PRN (10:28)
[2019-07-08 10:29] VITALS: BP 129/89
[2019-07-08] MEDS ORDERED: DIPHENHYDRAMINE HCL 25 MG in NORMAL SALINE 50 ML IV PRN (10:29)
== END 2019-07-08 12:00 | disposition home or self-care (01) ==
LOC: II 10:15 → 5TH 10:17 → II 12:00
PROVIDERS: ATTEND Internal Medicine
DX: D57.1 Sickle-cell disease without crisis (principal); E86.0 Dehydration; R52 Pain, unspecified
CPT/HCPCS: 96365; 96375; 96361; J1200; J1170; J1642

== ENCOUNTER 2019-07-09 07:50 | Outpatient (CLI) | payer MEDICARE, MEDICAID ==
[2019-07-09] MEDS ORDERED: NORMAL SALINE 1000 ML 1,000 ML IV PRN (08:03)
[2019-07-09] MEDS ORDERED: DIPHENHYDRAMINE HCL 25 MG in NORMAL SALINE 50 ML IV PRN (08:03)
[2019-07-09 08:04] VITALS: BP 113/80
[2019-07-09] MEDS ORDERED: HYDROMORPHONE HCL INJ/PF 2 MG/ML AMPULE IV PRN (08:04)
== END 2019-07-09 09:25 | disposition home or self-care (01) ==
LOC: II 07:50 → 5TH 07:54 → II 09:25
PROVIDERS: ATTEND Internal Medicine
DX: D57.1 Sickle-cell disease without crisis (principal); E86.0 Dehydration; R52 Pain, unspecified
CPT/HCPCS: 96365; 96375; 96361; J1200; J1170; J1642

== ENCOUNTER 2019-07-09 20:53 | Emergency (ER) | payer MEDICARE, MEDICAID ==
[2019-07-09] MEDS ORDERED: OXYCODONE-ACETAMINOPHEN 5-325 MG TABLET PO ONE (21:04)
--- NOTE | 2019-07-09 21:04 | ER Document Report ---
ED Medical Screen (RME) - General Chief Complaint: Sickle Cell Crisis Stated Complaint: SICKLE CELL PT Time Seen by Provider: 07/09/19 21:01 Primary Care Provider: BETH STAPLETON MD [Primary Care Provider] - Follow up as needed Mode of Arrival: Wheelchair Information source: Patient Notes: 38-year-old male presented to ED for complaint of sickle cell pain. He states this is his normal sickle cell pain gets unbearable at this time all over mostly in the joints. States he took oxycodone 10 mg about 5:00 PM. States this is a scheduled every 3-4 hours. I have greeted and performed a rapid initial assessment of this patient. A comprehensive ED assessment and evaluation of the patient, analysis of test results and completion of medical decision making process will be conducted by an additional ED providers. TRAVEL OUTSIDE OF THE [place] IN LAST 30 DAYS: No - Related Data Allergies/Adverse Reactions: famotidine [From Pepcid] Allergy (Severe, Verified 05/03/19 14:14) Anaphylaxis ketorolac tromethamine [From Toradol] Allergy (Severe, Verified 05/03/19 14:14) levofloxacin [From Levaquin] Allergy (Severe, Verified 05/03/19 14:14) meperidine HCl [From Demerol] Allergy (Severe, Verified 05/03/19 14:14) morphine [Morphine] Allergy (Severe, Verified 05/03/19 14:14) tramadol HCl [From Ultram] Allergy (Severe, Verified 05/03/19 14:14) amoxicillin [Amoxicillin] Allergy (Verified 05/03/19 14:14) fentanyl [Fentanyl] Allergy (Verified 05/03/19 14:14) latex [Latex] Allergy (Verified 05/03/19 14:14) ondansetron HCl [From Zofran] Allergy (Verified 05/03/19 14:14) Pork/Porcine Containing Products Allergy (Verified 05/03/19 14:14) promethazine Allergy (Verified 05/03/19 14:14) Past Medical History - Past Medical History Cardiac Medical History: Denies: Hx Atrial Fibrillation, Hx Congestive Heart Failure, Hx Coronary Artery Disease, Hx Heart Attack, Hx Hypertension Pulmonary Medical History: Reports: Hx Pneumonia Denies: Hx Asthma, Hx Bronchitis, Hx COPD, Hx Tuberculosis Neurological Medical History: Denies: Hx Cerebrovascular Accident, Hx Migraine, Hx Seizures, Hx Parkinson's Disease Endocrine Medical History: Denies: Hx Diabetes Mellitus Type 1, Hx Diabetes Mellitus Type 2 Renal/ Medical History: Denies: Hx Peritoneal Dialysis GI Medical History: Denies: Hx Cirrhosis, Hx Hepatitis Musculoskeltal Medical History: Denies Hx Arthritis, Denies Hx Gout, Reports Hx Musculoskeletal Deformity - right hip avascular necrosis Skin Medical History: Denies Hx Eczema, Denies Hx Psoriasis Psychiatric Medical History: Reports: Hx Depression Infectious Medical History: Denies: Hx Hepatitis Past Surgical History: Reports: Hx Appendectomy, Hx Vascular Surgery - L port placement, Other - Port placement - Immunizations Immunizations up to date: Yes Hx Diphtheria, Pertussis, Tetanus Vaccination: No Physical Exam - Vital signs Vitals: Temp Pulse Resp BP Pulse Ox 98.2 F 78 18 160/98 H 98 07/09/19 20:58 07/09/19 20:58 07/09/19 20:58 07/09/19 20:58 07/09/19 20:58 Course - Vital Signs Vital signs: Temp Pulse Resp BP Pulse Ox 98.2 F 78 18 160/98 H 98 07/09/19 20:58 07/09/19 20:58 07/09/19 20:58 07/09/19 20:58 07/09/19 20:58 Doctor's Discharge - Discharge Referrals: BETH STAPLETON MD [Primary Care Provider] - Follow up as needed
[2019-07-09] MEDS ORDERED: NORMAL SALINE 1000 ML 1,000 ML IV ONE (21:08)
[2019-07-09 22:29] LABS: HEMOGLOBIN 9.4 g/dL (13.5-17.0); MEAN CORPUSCULAR HEMOGLOBIN 33.6 pg (27.0-33.4); MEAN CORPUSCULAR HGB CONC 34.9 g/dL (32.0-36.0); MEAN CORPUSCULAR VOLUME 96 fl (80-97); PLATELET COUNT 225 10^3/uL (150-450); RED CELL DISTRIBUTION WIDTH 22.5 % (11.5-14.0); RETICULOCYTE COUNT (AUTO) 9.61 % (0.66-2.85); WHITE BLOOD COUNT 8.8 10^3/uL (4.0-10.5)
[2019-07-09 22:38] LABS: ALKALINE PHOSPHATASE 110 U/L (38-126); ANION GAP 8 (5-19); ASPARTATE AMINO TRANSFERASE 34 U/L (17-59); BILIRUBIN,TOTAL 1.4 mg/dL (0.2-1.3); BLOOD UREA NITROGEN 6 mg/dL (7-20); CALCIUM 8.4 mg/dL (8.4-10.2); CARBON DIOXIDE 27 mmol/L (22-30); CHLORIDE 106 mmol/L (98-107); GLUCOSE 108 mg/dL (75-110); POTASSIUM 3.6 mmol/L (3.6-5.0); TOTAL PROTEIN 7.7 g/dL (6.3-8.2)
[2019-07-09 22:49] LABS: ABSOLUTE LYMPHOCYTES# (MANUAL) 1.9 10^3/uL (0.5-4.7); ABSOLUTE MONOCYTES # (MANUAL) 0.6 10^3/uL (0.1-1.4); BAND NEUTROPHILS % (MANUAL) 2 % (3-5); BASOPHILS % (MANUAL) 0 % (0-2); EOSINOPHILS % (MANUAL) 2 % (0-6); LYMPHOCYTES % (MANUAL) 22 % (13-45); METAMYELOCYTES % (MANUAL) 2 % (0-1); MONOCYTES % (MANUAL) 7 % (3-13); NUCLEATED RED BLOOD CELLS 3 /100 WBC (0); SEGMENTED NEUTROPHILS % (MAN) 65 % (42-78); TOTAL CELLS COUNTED 100
[2019-07-09 22:52] LABS: ANISOCYTOSIS 3+; OVALOCYTES 1+; PLATELET COMMENT ADEQUATE; POIKILOCYTOSIS 1+; POLYCHROMASIA 1+; SICKLE RED CELLS 1+; TARGET CELLS SLIGHT; TEAR DROP CELLS SLIGHT
--- NOTE | 2019-07-10 00:49 | ER Document Report ---
ED General - General Chief Complaint: Chest Pain Stated Complaint: SICKLE CELL PT Time Seen by Provider: 07/09/19 21:01 Primary Care Provider: BETH STAPLETON MD [Primary Care Provider] - Follow up as needed Mode of Arrival: Wheelchair Notes: triage note; pt has had 2 hrs of joint pains, and sob and chest pain from sickle cell. speaking softly but in full sentences. pt placed on 02 at 2l, and charge nurse aware of pt needing a bed. Mayte [employer] HEL[employer] note;38-year-old male presented to ED for complaint of sickle cell pain. He states this is his normal sickle cell pain gets unbearable at this time all over mostly in the joints. States he took oxycodone 10 mg about 5:00 PM. States this is a scheduled every 3-4 hours. 38-year-old black male arrives with sickle cell diffuse myalgias and arthralgias that began earlier today. Patient reports he usually gets Dilaudid 3 mg and Benadryl IV. He did not want any Phenergan that I had written for him IV. He took his oral pain medicine around 1700. Patient reports he has had sickle cell since he was in school playing football. His father is a dentist and patient prior to that time believed he was just having arthralgias due to physical injuries. Patient has a port in his left chest. TRAVEL OUTSIDE OF THE [place] IN LAST 30 DAYS: No - HPI Onset: Just prior to arrival - Related Data Allergies/Adverse Reactions: famotidine [From Pepcid] Allergy (Severe, Verified 05/03/19 14:14) Anaphylaxis ketorolac tromethamine [From Toradol] Allergy (Severe, Verified 05/03/19 14:14) levofloxacin [From Levaquin] Allergy (Severe, Verified 05/03/19 14:14) meperidine HCl [From Demerol] Allergy (Severe, Verified 05/03/19 14:14) morphine [Morphine] Allergy (Severe, Verified 05/03/19 14:14) tramadol HCl [From Ultram] Allergy (Severe, Verified 05/03/19 14:14) amoxicillin [Amoxicillin] Allergy (Verified 05/03/19 14:14) fentanyl [Fentanyl] Allergy (Verified 05/03/19 14:14) latex [Latex] Allergy (Verified 05/03/19 14:14) ondansetron HCl [From Zofran] Allergy (Verified 05/03/19 14:14) Pork/Porcine Containing Products Allergy (Verified 05/03/19 14:14) promethazine Allergy (Verified 05/03/19 14:14) Home Medications: folic acid, oxycodone Past Medical History - General Information source: Patient - Social History Smoking Status: Never Smoker Family History: Reviewed & Not Pertinent, Hypertension Patient has suicidal ideation: No Patient has homicidal ideation: No - Past Medical History Cardiac Medical History: Denies: Hx Atrial Fibrillation, Hx Congestive Heart Failure, Hx Coronary Artery Disease, Hx Heart Attack, Hx Hypertension Pulmonary Medical History: Reports: Hx Pneumonia Denies: Hx Asthma, Hx Bronchitis, Hx COPD, Hx Tuberculosis Neurological Medical History: Denies: Hx Cerebrovascular Accident, Hx Migraine, Hx Seizures, Hx Parkinson's Disease Endocrine Medical History: Denies: Hx Diabetes Mellitus Type 1, Hx Diabetes Mellitus Type 2 Renal/ Medical History: Denies: Hx Peritoneal Dialysis GI Medical History: Denies: Hx Cirrhosis, Hx Hepatitis Musculoskeletal Medical History: Denies Hx Arthritis, Denies Hx Gout, Reports Hx Musculoskeletal Deformity - right hip avascular necrosis Skin Medical History: Denies Hx Eczema, Denies Hx Psoriasis Psychiatric Medical History: Reports: Hx Depression Infectious Medical History: Denies: Hx Hepatitis Past Surgical History: Reports: Hx Appendectomy, Hx Vascular Surgery - L port placement, Other - Port placement - Immunizations Immunizations up to date: Yes Hx Diphtheria, Pertussis, Tetanus Vaccination: No Hx Pneumococcal Vaccination: 02/20/11 Review of Systems - Review of Systems Constitutional: See HPI, Malaise, Weakness EENT: No symptoms reported Cardiovascular: See HPI, Lightheaded Respiratory: No symptoms reported Gastrointestinal: See HPI, Nausea Genitourinary: No symptoms reported Male Genitourinary: No symptoms reported Musculoskeletal: See HPI, Joint pain, Muscle pain Skin: No symptoms reported Hematologic/Lymphatic: No symptoms reported Neurological/Psychological: See HPI, Weakness Physical Exam - Vital signs Vitals: Temp Pulse Resp BP Pulse Ox 98.2 F 78 18 160/98 H 98 07/09/19 20:58 07/09/19 20:58 07/09/19 20:58 07/09/19 20:58 07/09/19 20:58 Interpretation: Hypertensive - General General appearance: Alert In distress: Mild - HEENT Head: Normocephalic Eyes: Normal Conjunctiva: Normal Cornea: Normal Extraocular movements intact: Yes Eyelashes: Normal Pupils: PERRL Sinus: Normal Nasal: Normal Mouth/Lips: Normal Pharynx: Normal Neck: Normal - Respiratory Respiratory status: No respiratory distress Chest status: Nontender Breath sounds: Normal Chest palpation: Normal - Cardiovascular Rhythm: Regular Heart sounds: Normal auscultation Murmur: No Friction rub: No Linus's crunch: No - Abdominal Inspection: Normal Distension: No distension Bowel sounds: Normal Tenderness: Nontender Organomegaly: No organomegaly - Back Back: Tender - LS on p/p - Extremities General upper extremity: Normal inspection General lower extremity: Normal inspection - CT her chest make sure you mistaken a right that to me centimeters going to scan her COPD - Neurological Neuro grossly intact: Yes Cognition: Normal Orientation: AAOx4 Yanni Coma Scale Eye Opening: Spontaneous Yanni Coma Scale Verbal: Oriented [place] Coma Scale Motor: Obeys Commands Yanni Coma Scale Total: 15 Speech: Normal Cranial nerves: Normal Cerebellar coordination: Normal Motor strength normal: LUE, RUE, LLE, RLE - Psychological Associated symptoms: Normal affect - Skin Skin Temperature: Warm Skin Moisture: Dry Course - Vital Signs Vital signs: Temp Pulse Resp BP Pulse Ox 98.2 F 78 18 160/98 H 98 07/09/19 20:58 07/09/19 20:58 07/09/19 20:58 07/09/19 20:58 07/09/19 20:58 - Laboratory Result Diagrams: 07/09/19 22:00 07/09/19 22:00 Laboratory results interpreted by me: 07/09/19 07/09/19 22:00 22:00 RBC 2.80 L Hgb 9.4 L Hct 27.0 L MCH 33.6 H RDW 22.5 H Reticulocyte # 0.270 H Band Neutrophils % 2 L Metamyelocytes % 2 H Retic Count (auto) 9.61 H BUN 6 L Total Bilirubin 1.4 H Discharge - Discharge Clinical Impression: Sickle cell pain crisis Joint pain Qualifiers: Joint pain location: unspecified Qualified Code(s): M25.50 - Pain in unspecified joint Condition: Good Disposition: HOME, SELF-CARE Additional Instructions: Follow-up with pain management or with personal doctor continue with your current medications I will Rx Parafon forte to add to your p.o. pain medicines. Prescriptions: Chlorzoxazone [Parafon Forte Dsc 500 Mg Tablet] 500 mg PO BID #14 tablet Referrals: BETH STAPLETON MD [Primary Care Provider] - Follow up as needed
[2019-07-10] MEDS ORDERED: HYDROMORPHONE HCL INJ/PF 2 MG/ML AMPULE IV ONE ×2 (00:58→04:50)
[2019-07-10] MEDS ORDERED: PROMETHAZINE HCL INJ 25 MG/1 ML VIAL IV ONE (00:59)
[2019-07-10] MEDS: NORMAL SALINE 1000 ML 1,000 ML IV PRN ×2 (01:22→02:30)
[2019-07-10] MEDS ORDERED: DIPHENHYDRAMINE HCL 50 MG/ML VIAL IV ONE ×2 (01:38→04:50)
[2019-07-10 02:19] LABS: APPEARANCE,URINE CLEAR; BILIRUBIN,URINE NEGATIVE (NEGATIVE); COLOR,URINE STRAW; GLUCOSE, URINE NEGATIVE (NEGATIVE); KETONES,URINE NEGATIVE (NEGATIVE); PROTEIN,URINE NEGATIVE (NEGATIVE); URINE SPECIFIC GRAVITY 1.006; UROBILINOGEN,URINE NEGATIVE mg/dL (<2.0)
[2019-07-10 07:14] VITALS: BP 122/86
== END 2019-07-10 07:26 | disposition home or self-care (01) ==
LOC: ER 20:53
DX: D57.00 Hb-SS disease with crisis, unspecified (principal); M25.50 Pain in unspecified joint; M79.10 Myalgia, unspecified site; R53.81 Other malaise; R53.1 Weakness; R11.0 Nausea; Z79.891 Long term (current) use of opiate analgesic; Z79.899 Other long term (current) drug therapy; Z87.892 Personal history of anaphylaxis; Z88.8 Allergy status to other drugs, medicaments and biological substances; Z88.1 Allergy status to other antibiotic agents; Z88.6 Allergy status to analgesic agent; Z88.5 Allergy status to narcotic agent; Z88.0 Allergy status to penicillin; Z91.040 Latex allergy status; Z91.018 Allergy to other foods
CPT/HCPCS: 96376; 99284; 96361; 96374; 96375; 36415; 85025; 85045; 80053; 81001; J1200; A9270; J1170; J7030 ×2

== ENCOUNTER 2019-07-10 08:03 | Outpatient (CLI) | payer MEDICARE, MEDICAID ==
[2019-07-10] MEDS ORDERED: NORMAL SALINE 1000 ML 1,000 ML IV PRN (08:21)
[2019-07-10] MEDS ORDERED: HYDROMORPHONE HCL INJ/PF 2 MG/ML AMPULE IV PRN (08:22)
[2019-07-10] MEDS ORDERED: DIPHENHYDRAMINE HCL 25 MG in NORMAL SALINE 50 ML IV PRN (08:24)
[2019-07-10 08:25] VITALS: BP 140/79
[2019-07-10] MEDS ORDERED: HYDROMORPHONE HCL INJ/PF 2 MG/ML AMPULE ONE (08:30)
== END 2019-07-10 10:51 | disposition home or self-care (01) ==
LOC: II 08:03 → 5TH 10:49 → II 10:51
PROVIDERS: ATTEND Internal Medicine
DX: D57.1 Sickle-cell disease without crisis (principal); E86.0 Dehydration; R52 Pain, unspecified
CPT/HCPCS: 96365; 96375; 96361; J1200; J1170; J1642

== ENCOUNTER 2019-07-13 12:23 | Outpatient (CLI) | payer MEDICARE, MEDICAID ==
[2019-07-13] MEDS ORDERED: HYDROMORPHONE HCL INJ/PF 2 MG/ML AMPULE ONE ×2 (12:31→12:33)
[2019-07-13] MEDS ORDERED: DIPHENHYDRAMINE HCL 50 MG/ML VIAL ONE (12:31)
[2019-07-13 14:49] VITALS: BP 125/85
== END 2019-07-13 14:45 | disposition home or self-care (01) ==
LOC: ASU 12:23
PROVIDERS: ATTEND Internal Medicine
DX: D57.1 Sickle-cell disease without crisis (principal); E86.0 Dehydration; R52 Pain, unspecified
CPT/HCPCS: 96365; 96366; 96374; 96375; 96361; J1200; J1170; J1642

== ENCOUNTER 2019-07-14 13:08 | Outpatient (CLI) | payer MEDICARE, MEDICAID ==
[2019-07-14] MEDS ORDERED: DIPHENHYDRAMINE HCL 25 MG in NORMAL SALINE 50 ML IV PRN (13:12)
[2019-07-14] MEDS ORDERED: NORMAL SALINE 1000 ML 1,000 ML IV PRN (13:14)
[2019-07-14] MEDS ORDERED: HYDROMORPHONE HCL INJ/PF 2 MG/ML AMPULE IV PRN (13:16)
[2019-07-14] MEDS ORDERED: HYDROMORPHONE HCL INJ/PF 2 MG/ML AMPULE ONE (13:30)
[2019-07-14 15:16] VITALS: BP 125/90
== END 2019-07-14 15:27 | disposition home or self-care (01) ==
LOC: II 13:08 → 5TH 13:09 → II 15:27
PROVIDERS: ATTEND Internal Medicine
DX: D57.1 Sickle-cell disease without crisis (principal); E86.0 Dehydration; R52 Pain, unspecified
CPT/HCPCS: 96365; 96375; 96361; J1200; J1170

== ENCOUNTER 2019-07-15 13:21 | Outpatient (CLI) | payer MEDICARE, MEDICAID ==
[2019-07-15] MEDS ORDERED: NORMAL SALINE 1000 ML 1,000 ML IV PRN (13:42)
[2019-07-15] MEDS ORDERED: DIPHENHYDRAMINE HCL 25 MG in NORMAL SALINE 50 ML IV PRN (13:42)
[2019-07-15] MEDS ORDERED: HYDROMORPHONE HCL INJ/PF 2 MG/ML AMPULE IV PRN (13:43)
[2019-07-15] MEDS ORDERED: HYDROMORPHONE HCL INJ/PF 2 MG/ML AMPULE ONE (13:49)
[2019-07-15 15:14] VITALS: BP 122/78
== END 2019-07-15 15:22 | disposition home or self-care (01) ==
LOC: II 13:21 → 5TH 13:30 → II 15:22
PROVIDERS: ATTEND Internal Medicine
DX: D57.1 Sickle-cell disease without crisis (principal); E86.0 Dehydration; R52 Pain, unspecified
CPT/HCPCS: 96365; 96375; 96361; J1200; J1170; J1642

== ENCOUNTER 2019-07-16 09:54 | Outpatient (CLI) | payer MEDICARE, MEDICAID ==
[2019-07-16] MEDS ORDERED: NORMAL SALINE 1000 ML 1,000 ML IV PRN (10:04)
[2019-07-16] MEDS ORDERED: HYDROMORPHONE HCL INJ/PF 2 MG/ML AMPULE IV PRN (10:04)
[2019-07-16] MEDS ORDERED: DIPHENHYDRAMINE HCL 25 MG in NORMAL SALINE 50 ML IV PRN (10:04)
[2019-07-16 10:13] VITALS: BP 124/78
[2019-07-16] MEDS ORDERED: HYDROMORPHONE HCL INJ/PF 2 MG/ML AMPULE ONE (10:20)
== END 2019-07-16 11:49 | disposition home or self-care (01) ==
LOC: II 09:54 → 5TH 09:57 → II 11:49
PROVIDERS: ATTEND Internal Medicine
DX: D57.1 Sickle-cell disease without crisis (principal); E86.0 Dehydration; R52 Pain, unspecified
CPT/HCPCS: 96365; 96375; J1200; J1170; J1642; 96361

== ENCOUNTER 2019-07-17 09:54 | Outpatient (CLI) | payer MEDICARE, MEDICAID ==
[2019-07-17] MEDS ORDERED: DIPHENHYDRAMINE HCL 25 MG in NORMAL SALINE 50 ML IV PRN (09:58)
[2019-07-17] MEDS ORDERED: NORMAL SALINE 1000 ML 1,000 ML IV PRN (09:58)
[2019-07-17] MEDS ORDERED: HYDROMORPHONE HCL INJ/PF 2 MG/ML AMPULE IV PRN (09:59)
[2019-07-17] MEDS ORDERED: HYDROMORPHONE HCL INJ/PF 2 MG/ML AMPULE ONE (10:06)
[2019-07-17 10:24] VITALS: BP 124/78
== END 2019-07-17 11:52 | disposition home or self-care (01) ==
LOC: II 09:54 → 5TH 09:57 → II 11:52
PROVIDERS: ATTEND Internal Medicine
DX: D57.1 Sickle-cell disease without crisis (principal); E86.0 Dehydration; R52 Pain, unspecified
CPT/HCPCS: 96365; 96375; 96361; J1200; J1170; J1642

== ENCOUNTER → 2019-07-20 | Outpatient (CLI) | payer MEDICARE, MEDICAID ==
[~2019-07-20] MED LIST changes: +DIPHENHYDRAMINE HCL 50 MG/ML VIAL ONE; +HYDROMORPHONE HCL INJ/PF 2 MG/ML AMPULE ONE
[2019-07-20 12:10] VITALS: BP 147/99
== END ==
LOC: II 10:50
PROVIDERS: ATTEND Internal Medicine
DX: D57.1 Sickle-cell disease without crisis (principal); E86.0 Dehydration; R52 Pain, unspecified
CPT/HCPCS: 96365; 96375; 96361; J1200; J1170; 96366; J1642

== ENCOUNTER 2019-07-21 10:36 | Outpatient (CLI) | payer MEDICARE, MEDICAID ==
[2019-07-21 11:27] VITALS: BP 134/85
[2019-07-21] MEDS ORDERED: NORMAL SALINE 1000 ML 1,000 ML IV PRN (11:46)
[2019-07-21] MEDS ORDERED: HYDROMORPHONE HCL INJ/PF 2 MG/ML AMPULE IV PRN (11:47)
[2019-07-21] MEDS ORDERED: DIPHENHYDRAMINE HCL 25 MG in NORMAL SALINE 50 ML IV PRN (11:48)
[2019-07-21] MEDS ORDERED: HYDROMORPHONE HCL INJ/PF 2 MG/ML AMPULE ONE (11:56)
== END 2019-07-21 12:40 | disposition home or self-care (01) ==
LOC: II 10:36 → 5TH 10:39 → II 12:40
PROVIDERS: ATTEND Internal Medicine
DX: D57.1 Sickle-cell disease without crisis (principal); E86.0 Dehydration; R52 Pain, unspecified
CPT/HCPCS: 96365; 96375; 96361; J1200; J1170; J1642

== ENCOUNTER 2019-07-22 07:48 | Outpatient (CLI) | payer MEDICARE, MEDICAID ==
[~2019-07-22 07:48] MED LIST changes: -DIPHENHYDRAMINE HCL 25 MG in NORMAL SALINE 50 ML IV PRN; -DIPHENHYDRAMINE HCL 50 MG/ML VIAL ONE; -HYDROMORPHONE HCL INJ/PF 2 MG/ML AMPULE IV PRN; -HYDROMORPHONE HCL INJ/PF 2 MG/ML AMPULE ONE; -NORMAL SALINE 1000 ML 1,000 ML IV PRN; +NORMAL SALINE 1000 ML @ AS DIRECTED IV PRN
[2019-07-22] MEDS ORDERED: HYDROMORPHONE HCL INJ/PF 2 MG/ML AMPULE IV PRN (08:00)
[2019-07-22] MEDS ORDERED: DIPHENHYDRAMINE HCL 25 MG in NORMAL SALINE 50 ML IV PRN (08:00)
[2019-07-22 08:03] VITALS: BP 143/86
[2019-07-22] MEDS ORDERED: HYDROMORPHONE HCL INJ/PF 2 MG/ML AMPULE ONE (08:46)
== END 2019-07-22 09:30 | disposition home or self-care (01) ==
LOC: II 07:48 → 5TH 07:51 → II 09:30
PROVIDERS: ATTEND Internal Medicine
DX: D57.1 Sickle-cell disease without crisis (principal); E86.0 Dehydration; R52 Pain, unspecified
CPT/HCPCS: 96365; 96375; 96361; J1200; J1170; J1642

== ENCOUNTER 2019-07-23 07:54 | Outpatient (CLI) | payer MEDICARE, MEDICAID ==
[~2019-07-23 07:54] MED LIST changes: +DIPHENHYDRAMINE HCL 25 MG in NORMAL SALINE 50 ML IV PRN; +HYDROMORPHONE HCL INJ/PF 2 MG/ML AMPULE IV PRN; +NORMAL SALINE 1000 ML 1,000 ML IV PRN; -NORMAL SALINE 1000 ML @ AS DIRECTED IV PRN
[2019-07-23 08:06] VITALS: BP 133/87
[2019-07-23] MEDS ORDERED: HYDROMORPHONE HCL INJ/PF 2 MG/ML AMPULE ONE (09:05)
== END 2019-07-23 09:56 | disposition home or self-care (01) ==
LOC: II 07:54 → 5TH 07:54 → II 09:56
PROVIDERS: ATTEND Internal Medicine
DX: D57.1 Sickle-cell disease without crisis (principal); E86.0 Dehydration; R52 Pain, unspecified
CPT/HCPCS: 96365; 96375; 96361; J1200; J1170; J1642

== ENCOUNTER 2019-07-24 08:10 | Outpatient (CLI) | payer MEDICARE, MEDICAID ==
[~2019-07-24 08:10] MED LIST changes: -NORMAL SALINE 1000 ML 1,000 ML IV PRN; +NORMAL SALINE 1000 ML @ AS DIRECTED IV PRN
[2019-07-24 09:34] VITALS: BP 127/81
== END 2019-07-24 10:15 | disposition home or self-care (01) ==
LOC: II 08:10 → 5TH 08:15 → II 10:15
PROVIDERS: ATTEND Internal Medicine
DX: D57.1 Sickle-cell disease without crisis (principal); E86.0 Dehydration; R52 Pain, unspecified
CPT/HCPCS: 96365; 96375; 96361; J1200; J1170; J1642

== ENCOUNTER → 2019-07-27 | Outpatient (CLI) | payer MEDICARE, MEDICAID ==
[~2019-07-27] MED LIST changes: -DIPHENHYDRAMINE HCL 25 MG in NORMAL SALINE 50 ML IV PRN; +DIPHENHYDRAMINE HCL 50 MG/ML VIAL ONE; -HYDROMORPHONE HCL INJ/PF 2 MG/ML AMPULE IV PRN; +HYDROMORPHONE HCL INJ/PF 2 MG/ML AMPULE ONE; +NORMAL SALINE 1000 ML 1,000 ML IV PRN; -NORMAL SALINE 1000 ML @ AS DIRECTED IV PRN
[2019-07-27 09:23] VITALS: BP 120/84
== END ==
LOC: II 08:09
PROVIDERS: ATTEND Internal Medicine
DX: D57.1 Sickle-cell disease without crisis (principal); E86.0 Dehydration; R52 Pain, unspecified
CPT/HCPCS: 96365; 96375; 96361; J1200; J1170; J1642; 96366

== ENCOUNTER 2019-07-29 09:48 | Outpatient (CLI) | payer MEDICARE, MEDICAID ==
[~2019-07-29 09:48] MED LIST changes: +DIPHENHYDRAMINE HCL 25 MG in NORMAL SALINE 50 ML IV PRN; -DIPHENHYDRAMINE HCL 50 MG/ML VIAL ONE; +HYDROMORPHONE HCL INJ/PF 2 MG/ML AMPULE IV PRN; -HYDROMORPHONE HCL INJ/PF 2 MG/ML AMPULE ONE
[2019-07-29 10:35] VITALS: BP 119/85
== END 2019-07-29 11:42 | disposition home or self-care (01) ==
LOC: II 09:48 → 5TH 09:50 → II 11:42
PROVIDERS: ATTEND Internal Medicine
DX: D57.1 Sickle-cell disease without crisis (principal); E86.0 Dehydration; R52 Pain, unspecified
CPT/HCPCS: 96365; 96375; 96361; J1200; J1170; J1642

== ENCOUNTER 2019-07-30 08:06 | Outpatient (CLI) | payer MEDICARE, MEDICAID ==
[2019-07-30 09:20] VITALS: BP 123/84
== END 2019-07-30 10:05 | disposition home or self-care (01) ==
LOC: II 08:06 → 5TH 08:43 → II 10:05
PROVIDERS: ATTEND Internal Medicine
DX: D57.1 Sickle-cell disease without crisis (principal); E86.0 Dehydration; R52 Pain, unspecified
CPT/HCPCS: 96365; 96375; 96361; J1200; J1170; J1642

== ENCOUNTER 2019-07-31 08:48 | Outpatient (CLI) | payer MEDICARE, MEDICAID ==
[2019-07-31 08:59] VITALS: BP 129/89
== END 2019-07-31 10:49 | disposition home or self-care (01) ==
LOC: II 08:48 → 5TH 08:50 → II 10:49
PROVIDERS: ATTEND Internal Medicine
DX: D57.1 Sickle-cell disease without crisis (principal); E86.0 Dehydration; R52 Pain, unspecified
CPT/HCPCS: 96365; 96375; 96361; J1200; J1170; J1642

== ENCOUNTER 2019-08-03 10:57 | Outpatient (CLI) | payer MEDICARE, MEDICAID ==
[2019-08-03] MEDS ORDERED: NORMAL SALINE 1000 ML 1,000 ML IV PRN (11:26)
[2019-08-03] MEDS ORDERED: DIPHENHYDRAMINE HCL 50 MG/ML VIAL IV PRN (11:27)
[2019-08-03] MEDS ORDERED: HYDROMORPHONE HCL INJ/PF 2 MG/ML AMPULE IV PRN (11:28)
[2019-08-03 12:51] VITALS: BP 120/79
== END 2019-08-03 14:00 | disposition home or self-care (01) ==
LOC: II 10:57 → 3S 10:59 → II 14:00
PROVIDERS: ATTEND Internal Medicine
DX: D57.1 Sickle-cell disease without crisis (principal); E86.0 Dehydration; R52 Pain, unspecified
CPT/HCPCS: 96374; 96375; 96361; J1200; J1170; J7030; J1642

== ENCOUNTER 2019-08-04 10:37 | Outpatient (CLI) | payer MEDICARE, MEDICAID ==
[~2019-08-04 10:37] MED LIST changes: +DIPHENHYDRAMINE HCL 25 MG in NORMAL SALINE 50 ML INJ PRN; -DIPHENHYDRAMINE HCL 25 MG in NORMAL SALINE 50 ML IV PRN
[2019-08-04 10:48] VITALS: BP 124/72
== END 2019-08-04 12:15 | disposition home or self-care (01) ==
LOC: II 10:37 → 5TH 10:39 → II 12:15
PROVIDERS: ATTEND Internal Medicine
DX: D57.1 Sickle-cell disease without crisis (principal); E86.0 Dehydration; R52 Pain, unspecified
CPT/HCPCS: 96365; 96375; 96361; J1200; J1170; J1642

== ENCOUNTER 2019-08-05 08:12 | Outpatient (CLI) | payer MEDICARE, MEDICAID ==
[2019-08-05 09:07] VITALS: BP 130/84
== END 2019-08-05 10:15 | disposition home or self-care (01) ==
LOC: II 08:12 → 5TH 08:14 → II 10:15
PROVIDERS: ATTEND Internal Medicine
DX: D57.1 Sickle-cell disease without crisis (principal); E86.0 Dehydration; R52 Pain, unspecified
CPT/HCPCS: 96365; 96375; 96361; J1200; J1170; J1642

== ENCOUNTER 2019-08-06 08:12 | Outpatient (CLI) | payer MEDICARE, MEDICAID ==
[~2019-08-06 08:12] MED LIST changes: -DIPHENHYDRAMINE HCL 25 MG in NORMAL SALINE 50 ML INJ PRN; +DIPHENHYDRAMINE HCL 25 MG in NORMAL SALINE 50 ML IV PRN
[2019-08-06 09:03] VITALS: BP 125/77
== END 2019-08-06 10:14 | disposition home or self-care (01) ==
LOC: II 08:12 → 5TH 08:14 → II 10:14
PROVIDERS: ATTEND Internal Medicine
DX: D57.1 Sickle-cell disease without crisis (principal); E86.0 Dehydration; R52 Pain, unspecified
CPT/HCPCS: 96365; 96375; 96361; J1200; J1170; J1642

== ENCOUNTER 2019-08-07 07:59 | Outpatient (CLI) | payer MEDICARE, MEDICAID ==
[2019-08-07 08:33] VITALS: BP 129/81
== END 2019-08-07 09:45 | disposition home or self-care (01) ==
LOC: II 07:59 → 5TH 08:03 → II 09:45
PROVIDERS: ATTEND Internal Medicine
DX: D57.1 Sickle-cell disease without crisis (principal); E86.0 Dehydration; R52 Pain, unspecified
CPT/HCPCS: 96365; 96375; 96361; J1200; J1170; J1642

== ENCOUNTER 2019-08-10 11:46 | Outpatient (CLI) | payer MEDICARE, MEDICAID ==
[2019-08-10] MEDS ORDERED: DIPHENHYDRAMINE HCL 50 MG/ML VIAL ONE (12:57)
== END 2019-08-10 14:15 | disposition home or self-care (01) ==
LOC: II 11:46 → 3W 12:10 → II 14:15
PROVIDERS: ATTEND Internal Medicine
DX: D57.1 Sickle-cell disease without crisis (principal); E86.0 Dehydration; R52 Pain, unspecified
CPT/HCPCS: 96374; 96375; 96361; J1200; J1170; J7030; J1642

== ENCOUNTER 2019-08-11 08:29 | Outpatient (CLI) | payer MEDICARE, MEDICAID ==
[~2019-08-11 08:29] MED LIST changes: -NORMAL SALINE 1000 ML 1,000 ML IV PRN; +NORMAL SALINE 1000 ML @ AS DIRECTED IV PRN
[2019-08-11 08:44] VITALS: BP 140/81
== END 2019-08-11 10:11 | disposition home or self-care (01) ==
LOC: II 08:29 → 5TH 08:31 → II 10:11
PROVIDERS: ATTEND Internal Medicine
DX: D57.1 Sickle-cell disease without crisis (principal); E86.0 Dehydration; R52 Pain, unspecified
CPT/HCPCS: 96365; 96375; 96361; J1200; J1170; J1642

== ENCOUNTER 2019-08-12 08:29 | Outpatient (CLI) | payer MEDICARE, MEDICAID ==
[2019-08-12 08:46] VITALS: BP 149/90
== END 2019-08-12 10:14 | disposition home or self-care (01) ==
LOC: II 08:29 → 5TH 08:32 → II 10:14
PROVIDERS: ATTEND Internal Medicine
DX: D57.1 Sickle-cell disease without crisis (principal); E86.0 Dehydration; R52 Pain, unspecified
CPT/HCPCS: 96365; 96375; 96361; J1200; J1170; J1642

== ENCOUNTER 2019-08-13 08:54 | Outpatient (CLI) | payer MEDICARE, MEDICAID ==
[2019-08-13 09:15] VITALS: BP 134/86
== END 2019-08-13 11:00 | disposition home or self-care (01) ==
LOC: II 08:54 → 5TH 08:57 → II 11:00
PROVIDERS: ATTEND Internal Medicine
DX: D57.1 Sickle-cell disease without crisis (principal); E86.0 Dehydration; R52 Pain, unspecified
CPT/HCPCS: 96365; 96375; 96361; J1200; J1170; J1642

== ENCOUNTER 2019-08-14 08:13 | Outpatient (CLI) | payer MEDICARE, MEDICAID ==
[2019-08-14 08:23] VITALS: BP 140/80
== END 2019-08-14 09:45 | disposition home or self-care (01) ==
LOC: II 08:13 → 5TH 08:14 → II 09:45
PROVIDERS: ATTEND Internal Medicine
DX: D57.1 Sickle-cell disease without crisis (principal); E86.0 Dehydration; R52 Pain, unspecified
CPT/HCPCS: 96365; 96375; 96361; J1200; J1170; J1642

== ENCOUNTER 2019-08-17 19:15 | Outpatient (CLI) | payer MEDICARE, MEDICAID ==
[2019-08-17] MEDS ORDERED: DIPHENHYDRAMINE HCL 50 MG/ML VIAL IV PRN (19:53)
[2019-08-17] MEDS ORDERED: NORMAL SALINE 1000 ML 1,000 ML IV PRN (19:54)
[2019-08-17] MEDS ORDERED: HYDROMORPHONE HCL INJ/PF 2 MG/ML AMPULE IV PRN (19:55)
[2019-08-17 22:38] VITALS: BP 152/90
== END 2019-08-17 22:39 | disposition home or self-care (01) ==
LOC: 4W 19:15 → II 19:15
PROVIDERS: ATTEND Internal Medicine
DX: D57.1 Sickle-cell disease without crisis (principal); E86.0 Dehydration; R52 Pain, unspecified
CPT/HCPCS: 96374; 96375; 96361; J1200; J1170; J7030; J1642

== ENCOUNTER 2019-08-18 09:03 | Outpatient (CLI) | payer MEDICARE, MEDICAID ==
[2019-08-18] MEDS ORDERED: DIPHENHYDRAMINE HCL 25 MG in NORMAL SALINE 50 ML IV PRN (09:09)
[2019-08-18] MEDS ORDERED: HYDROMORPHONE HCL INJ/PF 2 MG/ML AMPULE IV PRN (09:10)
[2019-08-18] MEDS ORDERED: NORMAL SALINE 1000 ML 1,000 ML IV PRN (09:10)
[2019-08-18 09:12] VITALS: BP 134/76
== END 2019-08-18 10:40 | disposition home or self-care (01) ==
LOC: II 09:03 → 5TH 09:07 → II 10:40
PROVIDERS: ATTEND Internal Medicine
DX: D57.1 Sickle-cell disease without crisis (principal); E86.0 Dehydration; R52 Pain, unspecified
CPT/HCPCS: 96365; 96375; 96361; J1200; J1170; J1642

== ENCOUNTER 2019-08-19 10:03 | Outpatient (CLI) | payer MEDICARE, MEDICAID ==
[~2019-08-19 10:03] MED LIST changes: +NORMAL SALINE 1000 ML 1,000 ML IV PRN; -NORMAL SALINE 1000 ML @ AS DIRECTED IV PRN
[2019-08-19 10:16] VITALS: BP 122/78
== END 2019-08-19 11:36 | disposition home or self-care (01) ==
LOC: II 10:03 → 5TH 10:04 → II 11:36
PROVIDERS: ATTEND Internal Medicine
DX: D57.1 Sickle-cell disease without crisis (principal); E86.0 Dehydration; R52 Pain, unspecified
CPT/HCPCS: 96365; 96375; 96361; J1200; J1170; J1642

== ENCOUNTER 2019-08-20 08:18 | Outpatient (CLI) | payer MEDICARE, MEDICAID ==
[~2019-08-20 08:18] MED LIST changes: +DIPHENHYDRAMINE HCL 25 MG in NORMAL SALINE 50 ML INJ PRN; -DIPHENHYDRAMINE HCL 25 MG in NORMAL SALINE 50 ML IV PRN
[2019-08-20 08:41] VITALS: BP 131/92
== END 2019-08-20 10:15 | disposition home or self-care (01) ==
LOC: II 08:18 → 5TH 08:27 → II 10:15
PROVIDERS: ATTEND Internal Medicine
DX: D57.1 Sickle-cell disease without crisis (principal); E86.0 Dehydration; R52 Pain, unspecified
CPT/HCPCS: 96365; 96375; 96361; J1200; J1170; J1642

== ENCOUNTER 2019-08-21 08:11 | Outpatient (CLI) | payer MEDICARE, MEDICAID ==
[~2019-08-21 08:11] MED LIST changes: -DIPHENHYDRAMINE HCL 25 MG in NORMAL SALINE 50 ML INJ PRN; +DIPHENHYDRAMINE HCL 25 MG in NORMAL SALINE 50 ML IV PRN
[2019-08-21 08:23] VITALS: BP 126/83
== END 2019-08-21 09:44 | disposition home or self-care (01) ==
LOC: II 08:11 → 5TH 08:14 → II 09:44
PROVIDERS: ATTEND Internal Medicine
DX: D57.1 Sickle-cell disease without crisis (principal); E86.0 Dehydration; R52 Pain, unspecified
CPT/HCPCS: 96365; 96375; 96361; J1200; J1170; J1642

== ENCOUNTER → 2019-08-24 | Outpatient (CLI) | payer MEDICARE, MEDICAID ==
[~2019-08-24] MED LIST changes: -DIPHENHYDRAMINE HCL 25 MG in NORMAL SALINE 50 ML IV PRN; +DIPHENHYDRAMINE HCL 50 MG/ML VIAL IV PRN; +DIPHENHYDRAMINE HCL 50 MG/ML VIAL ONE; +HYDROMORPHONE HCL INJ/PF 2 MG/ML AMPULE ONE
[2019-08-24 13:01] VITALS: BP 121/77
== END ==
LOC: ASU 11:25
PROVIDERS: ATTEND Internal Medicine
DX: D57.1 Sickle-cell disease without crisis (principal); E86.0 Dehydration; R52 Pain, unspecified
CPT/HCPCS: 96365; J1200; J1170; J1642; 96361; 96375

== ENCOUNTER 2019-08-25 09:26 | Outpatient (CLI) | payer MEDICARE, MEDICAID ==
[2019-08-25] MEDS ORDERED: NORMAL SALINE 1000 ML 1,000 ML IV PRN (09:29)
[2019-08-25] MEDS ORDERED: HYDROMORPHONE HCL INJ/PF 2 MG/ML AMPULE IV PRN (09:30)
[2019-08-25] MEDS ORDERED: DIPHENHYDRAMINE HCL 25 MG in NORMAL SALINE 50 ML IV PRN (09:31)
[2019-08-25 09:41] VITALS: BP 131/81
[2019-08-25] MEDS ORDERED: ONDANSETRON HCL INJ/PF 4 MG/2 ML SDV IV ONE (11:00)
== END 2019-08-25 11:15 | disposition home or self-care (01) ==
LOC: II 09:26 → 5TH 09:29 → II 11:15
PROVIDERS: ATTEND Internal Medicine
DX: D57.1 Sickle-cell disease without crisis (principal); E86.0 Dehydration; R52 Pain, unspecified
CPT/HCPCS: 96365; 96375; 96361; J1200; J1170; J1642

== ENCOUNTER 2019-08-26 08:30 | Outpatient (CLI) | payer MEDICARE, MEDICAID ==
[2019-08-26] MEDS ORDERED: DIPHENHYDRAMINE HCL 25 MG in NORMAL SALINE 50 ML IV PRN (08:36)
[2019-08-26] MEDS ORDERED: NORMAL SALINE 1000 ML 1,000 ML IV PRN (08:39)
[2019-08-26] MEDS ORDERED: HYDROMORPHONE HCL INJ/PF 2 MG/ML AMPULE IV PRN (08:40)
[2019-08-26 09:04] VITALS: BP 130/84
== END 2019-08-26 10:13 | disposition home or self-care (01) ==
LOC: II 08:30 → 5TH 08:31 → II 10:13
PROVIDERS: ATTEND Internal Medicine
DX: D57.1 Sickle-cell disease without crisis (principal); E86.0 Dehydration; R52 Pain, unspecified
CPT/HCPCS: 96365; 96375; J1200; J1170; J1642; 96361

== ENCOUNTER 2019-08-27 08:24 | Outpatient (CLI) | payer MEDICARE, MEDICAID ==
[~2019-08-27 08:24] MED LIST changes: +DIPHENHYDRAMINE HCL 25 MG in NORMAL SALINE 50 ML IV PRN; -DIPHENHYDRAMINE HCL 50 MG/ML VIAL IV PRN; -DIPHENHYDRAMINE HCL 50 MG/ML VIAL ONE; -HYDROMORPHONE HCL INJ/PF 2 MG/ML AMPULE ONE
[2019-08-27 08:34] VITALS: BP 125/81
[2019-08-28] MEDS ORDERED: DIPHENHYDRAMINE HCL 25 MG in NORMAL SALINE 50 ML IV PRN (08:00)
== END 2019-08-27 10:15 | disposition home or self-care (01) ==
LOC: II 08:24 → 5TH 08:27 → II 10:15
PROVIDERS: ATTEND Internal Medicine
DX: D57.1 Sickle-cell disease without crisis (principal); E86.0 Dehydration; R52 Pain, unspecified
CPT/HCPCS: 96365; 96375; 96361; J1200; J1170; J1642

== ENCOUNTER 2019-08-28 08:19 | Outpatient (CLI) | payer MEDICARE, MEDICAID ==
[2019-08-28 08:28] VITALS: BP 141/92
== END 2019-08-28 10:00 | disposition home or self-care (01) ==
LOC: II 08:19 → 5TH 08:21 → II 10:00
PROVIDERS: ATTEND Internal Medicine
DX: D57.1 Sickle-cell disease without crisis (principal); E86.0 Dehydration; R52 Pain, unspecified
CPT/HCPCS: 96365; 96375; 96361; J1200; J1170; J1642

== ENCOUNTER 2019-08-31 11:51 | Outpatient (CLI) | payer MEDICARE, MEDICAID ==
[2019-08-31] MEDS ORDERED: NORMAL SALINE 1000 ML 1,000 ML IV PRN (12:16)
[2019-08-31] MEDS ORDERED: DIPHENHYDRAMINE HCL 50 MG/ML VIAL IV PRN (12:16)
[2019-08-31] MEDS ORDERED: HYDROMORPHONE HCL INJ/PF 2 MG/ML AMPULE IV PRN (12:17)
[2019-08-31 12:52] VITALS: BP 148/93
== END 2019-08-31 13:58 | disposition home or self-care (01) ==
LOC: II 11:51 → 3W 11:54 → II 13:58
PROVIDERS: ATTEND Internal Medicine
DX: D57.1 Sickle-cell disease without crisis (principal); E86.0 Dehydration; R52 Pain, unspecified
CPT/HCPCS: J1200; J1170; J7030; J1642; 96361; 96374; 96375

== ENCOUNTER 2019-09-01 08:58 | Outpatient (CLI) | payer MEDICARE, MEDICAID ==
[2019-09-01 09:09] VITALS: BP 138/95
[2019-09-01] MEDS ORDERED: DIPHENHYDRAMINE HCL 25 MG in NORMAL SALINE 50 ML IV PRN (09:12)
[2019-09-01] MEDS ORDERED: HYDROMORPHONE HCL INJ/PF 2 MG/ML AMPULE IV ONE (10:00)
[2019-09-01] MEDS ORDERED: NORMAL SALINE 1000 ML 1,000 ML IV ONE (10:00)
== END 2019-09-01 10:45 | disposition home or self-care (01) ==
LOC: II 08:58 → 5TH 09:01 → II 10:45
PROVIDERS: ATTEND Internal Medicine
DX: D57.1 Sickle-cell disease without crisis (principal); E86.0 Dehydration; R52 Pain, unspecified
CPT/HCPCS: 96365; 96375; 96361; J1200; J1170; J1642

== ENCOUNTER 2019-09-02 08:16 | Outpatient (CLI) | payer MEDICARE, MEDICAID ==
[2019-09-02 08:45] VITALS: BP 135/83
== END 2019-09-02 09:58 | disposition home or self-care (01) ==
LOC: II 08:16 → 5TH 08:18 → II 09:58
PROVIDERS: ATTEND Internal Medicine
DX: D57.1 Sickle-cell disease without crisis (principal); E86.0 Dehydration; R52 Pain, unspecified
CPT/HCPCS: 96365; 96375; 96361; J1200; J1170; J1642

== ENCOUNTER 2019-09-03 09:09 | Outpatient (CLI) | payer MEDICARE, MEDICAID ==
[2019-09-03 09:21] VITALS: BP 131/88
== END 2019-09-03 10:45 | disposition home or self-care (01) ==
LOC: II 09:09 → 5TH 09:14 → II 10:45
PROVIDERS: ATTEND Internal Medicine
DX: D57.1 Sickle-cell disease without crisis (principal); E86.0 Dehydration; R52 Pain, unspecified
CPT/HCPCS: 96365; 96375; 96361; J1200; J1170; J1642

== ENCOUNTER 2019-09-04 08:11 | Outpatient (CLI) | payer MEDICARE, MEDICAID ==
[2019-09-04 08:20] VITALS: BP 134/80
== END 2019-09-04 09:57 | disposition home or self-care (01) ==
LOC: II 08:11 → 5TH 08:13 → II 09:57
PROVIDERS: ATTEND Internal Medicine
DX: D57.1 Sickle-cell disease without crisis (principal); E86.0 Dehydration; R52 Pain, unspecified
CPT/HCPCS: 96365; 96375; 96361; J1200; J1170; J1642

== ENCOUNTER 2019-09-07 11:30 | Outpatient (CLI) | payer MEDICARE, MEDICAID ==
[2019-09-07] MEDS ORDERED: NORMAL SALINE 1000 ML 1,000 ML IV PRN (11:51)
[2019-09-07] MEDS ORDERED: DIPHENHYDRAMINE HCL 25 MG in NORMAL SALINE 50 ML IV PRN (11:51)
[2019-09-07] MEDS ORDERED: HYDROMORPHONE HCL INJ/PF 2 MG/ML AMPULE IV PRN (11:53)
[2019-09-07] MEDS ORDERED: HYDROMORPHONE HCL INJ/PF 2 MG/ML AMPULE ONE (11:54)
[2019-09-07] MEDS ORDERED: DIPHENHYDRAMINE HCL 50 MG/ML VIAL ONE (11:54)
[2019-09-07 12:33] VITALS: BP 133/86
== END 2019-09-07 14:00 | disposition home or self-care (01) ==
LOC: II 11:30
PROVIDERS: ATTEND Internal Medicine
DX: D57.1 Sickle-cell disease without crisis (principal); E86.0 Dehydration; R52 Pain, unspecified
CPT/HCPCS: J1200; J1170; J1642; 96361; 96365; 96375

== ENCOUNTER 2019-09-08 09:00 | Outpatient (CLI) | payer MEDICARE, MEDICAID ==
[2019-09-08 09:08] VITALS: BP 128/75
== END 2019-09-08 10:41 | disposition home or self-care (01) ==
LOC: II 09:00 → 5TH 09:02 → II 10:41
PROVIDERS: ATTEND Internal Medicine
DX: D57.1 Sickle-cell disease without crisis (principal); E86.0 Dehydration; R52 Pain, unspecified
CPT/HCPCS: 96365; 96375; 96361; J1200; J1170; J1642

== ENCOUNTER 2019-09-09 08:31 | Outpatient (CLI) | payer MEDICARE, MEDICAID ==
[2019-09-09 09:01] VITALS: BP 134/95
== END 2019-09-09 10:30 | disposition home or self-care (01) ==
LOC: II 08:31 → 5TH 08:38 → II 10:30
PROVIDERS: ATTEND Internal Medicine
DX: D57.1 Sickle-cell disease without crisis (principal); E86.0 Dehydration; R52 Pain, unspecified
CPT/HCPCS: 96365; 96375; 96361; J1200; J1170; J1642

== ENCOUNTER 2019-09-10 08:04 | Outpatient (CLI) | payer MEDICARE, MEDICAID ==
[2019-09-10 08:54] VITALS: BP 127/82
== END 2019-09-10 10:02 | disposition home or self-care (01) ==
LOC: II 08:04 → 5TH 08:06 → II 10:02
PROVIDERS: ATTEND Internal Medicine
DX: D57.1 Sickle-cell disease without crisis (principal); E86.0 Dehydration; R52 Pain, unspecified
CPT/HCPCS: 96365; 96375; 96361; J1200; J1170; J1642

== ENCOUNTER 2019-09-11 07:46 | Outpatient (CLI) | payer MEDICARE, MEDICAID ==
[2019-09-11 08:00] VITALS: BP 141/92
== END 2019-09-11 09:36 | disposition home or self-care (01) ==
LOC: II 07:46 → 5TH 07:50 → II 09:36
PROVIDERS: ATTEND Internal Medicine
DX: D57.1 Sickle-cell disease without crisis (principal); E86.0 Dehydration; R52 Pain, unspecified
CPT/HCPCS: 96365; 96375; 96361; J1200; J1170; J1642

== ENCOUNTER 2019-09-12 04:50 | Emergency (ER) | payer MEDICARE, MEDICAID ==
[2019-09-12] MEDS ORDERED: HYDROMORPHONE HCL INJ/PF 2 MG/ML AMPULE IV ONE ×2 (05:48→07:46)
[2019-09-12] MEDS ORDERED: DIPHENHYDRAMINE HCL 50 MG/ML VIAL IV ONE (05:48)
[2019-09-12] MEDS ORDERED: NORMAL SALINE 1000 ML 1,000 ML IV ONE (05:48)
--- NOTE | 2019-09-12 05:50 | ER Document Report ---
ED General Pain - General Mode of Arrival: Ambulatory Information source: Patient TRAVEL OUTSIDE OF THE [place] IN LAST 30 DAYS: No <HAM VÁSQUEZ - Last Filed: 09/12/19 07:46> <RADHA AMBROSIO - Last Filed: 09/12/19 08:51> - General Chief Complaint: Sickle Cell Crisis Stated Complaint: SICKLE CELL ISSUES Time Seen by Provider: 09/12/19 05:40 Primary Care Provider: BETH STAPLETON MD [Primary Care Provider] - Follow up as needed Notes: 38-year-old male patient with history of sickle cell presenting to the emergency department chief complaint of however joint pain and shortness of breath. Sabra nt reports symptoms have been ongoing for the last 72 hours. He is taking his home medication without relief. He does report that he has a port to the left chest wall. He is currently denying any chest pain. (HAM VÁSQUEZ) - Related Data Allergies/Adverse Reactions: famotidine [From Pepcid] Allergy (Severe, Verified 05/03/19 14:14) Anaphylaxis ketorolac tromethamine [From Toradol] Allergy (Severe, Verified 05/03/19 14:14) levofloxacin [From Levaquin] Allergy (Severe, Verified 05/03/19 14:14) meperidine HCl [From Demerol] Allergy (Severe, Verified 05/03/19 14:14) morphine [Morphine] Allergy (Severe, Verified 05/03/19 14:14) tramadol HCl [From Ultram] Allergy (Severe, Verified 05/03/19 14:14) amoxicillin [Amoxicillin] Allergy (Verified 05/03/19 14:14) fentanyl [Fentanyl] Allergy (Verified 05/03/19 14:14) latex [Latex] Allergy (Verified 05/03/19 14:14) ondansetron HCl [From Zofran] Allergy (Verified 05/03/19 14:14) Pork/Porcine Containing Products Allergy (Verified 05/03/19 14:14) promethazine Allergy (Verified 05/03/19 14:14) Past Medical History - General Information source: Patient - Social History Smoking Status: Current Some Day Smoker Family History: Reviewed & Not Pertinent, Hypertension Patient has homicidal ideation: No - Past Medical History Cardiac Medical History: Denies: Hx Atrial Fibrillation, Hx Congestive Heart Failure, Hx Coronary Artery Disease, Hx Heart Attack, Hx Hypertension Pulmonary Medical History: Denies: Hx Asthma, Hx Bronchitis, Hx COPD, Hx Pneumonia, Hx Tuberculosis Neurological Medical History: Denies: Hx Cerebrovascular Accident, Hx Migraine, Hx Seizures, Hx Parkinson's Disease Endocrine Medical History: Denies: Hx Diabetes Mellitus Type 1, Hx Diabetes Mellitus Type 2 Renal/ Medical History: Denies: Hx Peritoneal Dialysis GI Medical History: Denies: Hx Cirrhosis, Hx Hepatitis Musculoskeletal Medical History: Denies Hx Arthritis, Denies Hx Gout, Reports Hx Musculoskeletal Deformity - right hip avascular necrosis Skin Medical History: Denies Hx Eczema, Denies Hx Psoriasis Psychiatric Medical History: Reports: Hx Depression Infectious Medical History: Denies: Hx Hepatitis Past Surgical History: Reports: Hx Appendectomy, Hx Vascular Surgery - L port placement, Other - Port placement - Immunizations Immunizations up to date: Yes Hx Diphtheria, Pertussis, Tetanus Vaccination: No Hx Pneumococcal Vaccination: 02/20/11 <HAM VÁSQUEZ - Last Filed: 09/12/19 07:46> Review of Systems - Review of Systems Respiratory: Short of breath Musculoskeletal: Joint pain -: Yes All other systems reviewed and negative <HAM VÁSQUEZ - Last Filed: 09/12/19 07:46> Physical Exam <HAM VÁSQUEZ - Last Filed: 09/12/19 07:46> - Vital signs Vitals: Temp Pulse Resp BP Pulse Ox 98.3 F 63 18 133/78 H 94 09/12/19 05:08 09/12/19 05:08 09/12/19 05:08 09/12/19 05:08 09/12/19 05:08 - Notes Notes: PHYSICAL EXAMINATION: GENERAL: Well-appearing, well-nourished and in no acute distress. HEAD: Atraumatic, normocephalic. EYES: Pupils equal round and reactive to light, extraocular movements intact, sclera anicteric, conjunctiva are normal. ENT: Nares patent, oropharynx clear without exudates. Moist mucous membranes. NECK: Normal range of motion, supple without lymphadenopathy LUNGS: Breath sounds clear to auscultation bilaterally and equal. No wheezes rales or rhonchi. HEART: Regular rate and rhythm without murmurs ABDOMEN: Soft, nontender, nondistended abdomen. No guarding, no rebound. No masses appreciated. Musculoskeletal: Normal range of motion, no pitting or edema. No cyanosis. NEUROLOGICAL: Cranial nerves grossly intact. Normal speech, normal gait. Normal sensory, motor exams PSYCH: Normal mood, normal affect. SKIN: Warm, Dry, normal turgor, no rashes or lesions noted. (HAM VÁSQUEZ) Course - Laboratory Result Diagrams: 09/12/19 05:55 09/12/19 05:55 <HAM VÁSQUEZ - Last Filed: 09/12/19 07:46> - Laboratory Result Diagrams: 09/12/19 05:55 09/12/19 05:55 <RADHA AMBROSIO - Last Filed: 09/12/19 08:51> - Re-evaluation Re-evalutation: 09/12/19 07:47 Laboratory 09/12/19 09/12/19 05:55 05:55 WBC 5.1 RBC 2.82 L Hgb 9.2 L Hct 26.5 L MCV 94 MCH 32.6 MCHC 34.7 RDW 22.8 H Plt Count 323 Lymph % (Auto) Not Reportable [place] % (Auto) Not Reportable Eos % (Auto) Not Reportable Baso % (Auto) Not Reportable Reticulocyte # 0.304 H Absolute Neuts (auto) Not Reportable Absolute Lymphs (auto) Not Reportable Absolute Monos (auto) Not Reportable Absolute Eos (auto) Not Reportable Absolute Basos (auto) Not Reportable Total Counted 100 Seg Neutrophils % Not Reportable Seg Neuts % (Manual) 28 L Lymphocytes % (Manual) 51 H Atypical Lymphs % 1 Monocytes % (Manual) 15 H Eosinophils % (Manual) 5 Basophils % (Manual) 0 Abs Neuts (Manual) 1.4 L Abs Lymphs (Manual) 2.7 Abs Monocytes (Manual) 0.8 Absolute Eos (Manual) 0.3 Abs Basophils (Manual) 0.0 Nucleated RBCs 4 Platelet Comment ADEQUATE Polychromasia 1+ Poikilocytosis 1+ Anisocytosis 3+ Sickle Cells SLIGHT Target Cells 1+ Ovalocytes SLIGHT Retic Count (auto) 10.76 H Sodium 138.5 Potassium 4.1 Chloride 105 Carbon Dioxide 27 Anion Gap 7 BUN 5 L Creatinine 0.59 Est GFR ( Amer) > 60 Est GFR (MDRD) Non-Af > 60 Glucose 91 Calcium 8.5 Total Bilirubin 2.1 H Direct Bilirubin 0.0 Neonat Total Bilirubin Not Reportable Neonat Direct Bilirubin Not Reportable Neonat Indirect Bili Not Reportable AST 52 ALT 34 Alkaline Phosphatase 106 Total Protein 7.8 Albumin 4.1 Chest X-Ray 09/12/19 05:47 IMPRESSION: Mild residual bibasilar opacities consistent with atelectasis, scarring and/or pneumonia. Additional pain medications ordered. Handoff will be given to oncoming shift. (HMA VÁSQUEZ) 09/12/19 08:00 Care assumed from Ham Vásquez CONDUIT BENDER labs and plan of care were discussed. 09/12/19 08:47 Patient is resting comfortably states his pain has improved feels well enough to go home. Outpatient follow-up with his oncologist/court security officer as needed. He is to return for any new or worsening symptoms. Return for any new or worsening symptoms. All questions were answered. Patient verbalized understanding and agrees with plan of care. (RADHA AMBROSIO) - Vital Signs Vital signs: Temp Pulse Resp BP Pulse Ox 98.7 F 63 18 133/78 H 94 09/12/19 05:26 09/12/19 05:08 09/12/19 05:08 09/12/19 05:08 09/12/19 05:08 - Laboratory Laboratory results interpreted by me: 09/12/19 09/12/19 05:55 05:55 RBC 2.82 L Hgb 9.2 L Hct 26.5 L RDW 22.8 H Reticulocyte # 0.304 H Seg Neuts % (Manual) 28 L Lymphocytes % (Manual) 51 H Monocytes % (Manual) 15 H Abs Neuts (Manual) 1.4 L Retic Count (auto) 10.76 H BUN 5 L Total Bilirubin 2.1 H Discharge <HAM VÁSQUEZ - Last Filed: 09/12/19 07:46> <RADHA AMBROSIO - Last Filed: 09/12/19 08:51> - Discharge Clinical Impression: Sickle cell crisis Condition: Stable Disposition: HOME, SELF-CARE Instructions: Sickle Cell Crisis ([facility]) Referrals: BETH STAPLETON MD [Primary Care Provider] - Follow up as needed
[2019-09-12 06:15] LABS: ABSOLUTE RETICS # 0.304 10^6/uL (0.028-0.122); HEMATOCRIT 26.5 % (37.9-51.0); HEMOGLOBIN 9.2 g/dL (13.5-17.0); MEAN CORPUSCULAR HEMOGLOBIN 32.6 pg (27.0-33.4); MEAN CORPUSCULAR HGB CONC 34.7 g/dL (32.0-36.0); MEAN CORPUSCULAR VOLUME 94 fl (80-97); PLATELET COUNT 323 10^3/uL (150-450); RED BLOOD COUNT 2.82 10^6/uL (4.35-5.55); RED CELL DISTRIBUTION WIDTH 22.8 % (11.5-14.0); RETICULOCYTE COUNT (AUTO) 10.76 % (0.66-2.85); WHITE BLOOD COUNT 5.1 10^3/uL (4.0-10.5)
[2019-09-12 06:30] LABS: ALBUMIN 4.1 g/dL (3.5-5.0); ALKALINE PHOSPHATASE 106 U/L (38-126); ANION GAP 7 (5-19); ASPARTATE AMINO TRANSFERASE 52 U/L (17-59); BILIRUBIN,TOTAL 2.1 mg/dL (0.2-1.3); BLOOD UREA NITROGEN 5 mg/dL (7-20); CALCIUM 8.5 mg/dL (8.4-10.2); CARBON DIOXIDE 27 mmol/L (22-30); CHLORIDE 105 mmol/L (98-107); GLUCOSE 91 mg/dL (75-110); POTASSIUM 4.1 mmol/L (3.6-5.0); TOTAL PROTEIN 7.8 g/dL (6.3-8.2)
[2019-09-12 06:36] LABS: ABSOLUTE LYMPHOCYTES# (MANUAL) 2.7 10^3/uL (0.5-4.7); ABSOLUTE MONOCYTES # (MANUAL) 0.8 10^3/uL (0.1-1.4); BASOPHILS % (MANUAL) 0 % (0-2); EOSINOPHILS % (MANUAL) 5 % (0-6); LYMPHOCYTES % (MANUAL) 51 % (13-45); MONOCYTES % (MANUAL) 15 % (3-13); NUCLEATED RED BLOOD CELLS 4 /100 WBC (0); SEGMENTED NEUTROPHILS % (MAN) 28 % (42-78); TOTAL CELLS COUNTED 100
[2019-09-12 06:37] LABS: ANISOCYTOSIS 3+; OVALOCYTES SLIGHT; PLATELET COMMENT ADEQUATE; POIKILOCYTOSIS 1+; POLYCHROMASIA 1+; SICKLE RED CELLS SLIGHT; TARGET CELLS 1+
--- NOTE | 2019-09-12 07:13 | RADIOLOGY REPORT (SQ) ---
CHEST 1 VIEW on 09/12/2019 at 6:09 AM CLINICAL INDICATION: Shortness of breath, history of sickle cell COMPARISON: 06/08/2019 FINDINGS: Left IJ Port-A-Cath tip is in the SVC. Cardiomegaly is noted. There has been improvement in bilateral lower lung opacities with residual bibasilar opacities that may be atelectasis, scarring and/or pneumonia. Hilar and mediastinal contours are within normal limits. IMPRESSION: Mild residual bibasilar opacities consistent with atelectasis, scarring and/or pneumonia.
[2019-09-12 09:15] VITALS: BP 141/85
== END 2019-09-12 09:13 | disposition home or self-care (01) ==
LOC: ER 04:50
DX: D57.00 Hb-SS disease with crisis, unspecified (principal); M25.50 Pain in unspecified joint; R06.02 Shortness of breath; F17.200 Nicotine dependence, unspecified, uncomplicated; Z79.899 Other long term (current) drug therapy; Z87.892 Personal history of anaphylaxis; Z88.8 Allergy status to other drugs, medicaments and biological substances; Z88.1 Allergy status to other antibiotic agents; Z88.6 Allergy status to analgesic agent; Z88.5 Allergy status to narcotic agent; Z88.0 Allergy status to penicillin; Z91.040 Latex allergy status; Z91.018 Allergy to other foods
CPT/HCPCS: 36591; 96376; 99284; 96361; 96374; 96375; 36415; 85025; 85045; 80053; 71045; J1200; J1170; J7030; J1642

== ENCOUNTER 2019-09-15 11:11 | Outpatient (CLI) | payer MEDICARE, MEDICAID ==
[2019-09-15] MEDS ORDERED: HYDROMORPHONE HCL INJ/PF 2 MG/ML AMPULE IV PRN (11:17)
[2019-09-15] MEDS ORDERED: DIPHENHYDRAMINE HCL 25 MG in NORMAL SALINE 50 ML IV PRN (11:17)
[2019-09-15] MEDS ORDERED: NORMAL SALINE 1000 ML 1,000 ML IV PRN (11:17)
[2019-09-15 11:36] VITALS: BP 119/86
== END 2019-09-15 12:45 | disposition home or self-care (01) ==
LOC: II 11:11 → 5TH 11:12 → II 12:45
PROVIDERS: ATTEND Internal Medicine
DX: D57.1 Sickle-cell disease without crisis (principal); E86.0 Dehydration; R52 Pain, unspecified
CPT/HCPCS: 96365; 96375; 96361; J1200; J1170; J1642

== ENCOUNTER 2019-09-16 08:19 | Outpatient (CLI) | payer MEDICARE, MEDICAID ==
[2019-09-16 08:27] VITALS: BP 121/76
== END 2019-09-16 09:49 | disposition home or self-care (01) ==
LOC: II 08:19 → 5TH 08:29 → II 09:49
PROVIDERS: ATTEND Internal Medicine
DX: D57.1 Sickle-cell disease without crisis (principal); E86.0 Dehydration; R52 Pain, unspecified
CPT/HCPCS: 96365; 96375; 96361; J1200; J1170; J1642

== ENCOUNTER 2019-09-17 08:32 | Outpatient (CLI) | payer MEDICARE, MEDICAID ==
[2019-09-17 08:45] VITALS: BP 127/85
== END 2019-09-17 10:15 | disposition home or self-care (01) ==
LOC: II 08:32 → 5TH 08:34 → II 10:15
PROVIDERS: ATTEND Internal Medicine
DX: D57.1 Sickle-cell disease without crisis (principal); E86.0 Dehydration; R52 Pain, unspecified
CPT/HCPCS: 96365; 96375; 96361; J1200; J1170; J1642

== ENCOUNTER 2019-09-18 08:37 | Outpatient (CLI) | payer MEDICARE, MEDICAID ==
[2019-09-18 08:51] VITALS: BP 133/88
== END 2019-09-18 10:00 | disposition home or self-care (01) ==
LOC: II 08:37 → 5TH 08:41 → II 10:00
PROVIDERS: ATTEND Internal Medicine
DX: D57.1 Sickle-cell disease without crisis (principal); E86.0 Dehydration; R52 Pain, unspecified
CPT/HCPCS: 96365; 96375; 96361; J1200; J1170; J1642

== ENCOUNTER 2019-09-21 12:40 | Outpatient (CLI) | payer MEDICARE, MEDICAID ==
[2019-09-21] MEDS ORDERED: NORMAL SALINE 1000 ML 1,000 ML IV PRN (13:22)
[2019-09-21] MEDS ORDERED: DIPHENHYDRAMINE HCL 50 MG/ML VIAL IV PRN (13:22)
[2019-09-21] MEDS ORDERED: HYDROMORPHONE HCL INJ/PF 2 MG/ML AMPULE IV PRN (13:23)
== END 2019-09-21 14:53 | disposition home or self-care (01) ==
LOC: II 12:40 → 2S 12:40 → II 14:53
PROVIDERS: ATTEND Internal Medicine
DX: D57.1 Sickle-cell disease without crisis (principal); E86.0 Dehydration; R52 Pain, unspecified
CPT/HCPCS: 96374; 96375; 96361; J1200; J1170; J7030; J1642

== ENCOUNTER 2019-09-22 12:18 | Outpatient (CLI) | payer MEDICARE, MEDICAID ==
[2019-09-22 12:35] VITALS: BP 127/81
== END 2019-09-22 14:30 | disposition home or self-care (01) ==
LOC: II 12:18 → 5TH 12:20 → II 14:30
PROVIDERS: ATTEND Internal Medicine
DX: D57.1 Sickle-cell disease without crisis (principal); E86.0 Dehydration; R52 Pain, unspecified
CPT/HCPCS: 96365; 96375; 96361; J1200; J1170; J1642

== ENCOUNTER 2019-09-23 01:23 | Emergency (ER) | payer MEDICARE, MEDICAID ==
[2019-09-23 03:03] LABS: HEMATOCRIT 25.3 % (37.9-51.0); HEMOGLOBIN 8.9 g/dL (13.5-17.0); MEAN CORPUSCULAR HEMOGLOBIN 32.9 pg (27.0-33.4); MEAN CORPUSCULAR VOLUME 94 fl (80-97); PLATELET COUNT 298 10^3/uL (150-450); RED CELL DISTRIBUTION WIDTH 22.6 % (11.5-14.0); WHITE BLOOD COUNT 7.1 10^3/uL (4.0-10.5)
[2019-09-23] MEDS ORDERED: DIPHENHYDRAMINE HCL 50 MG/ML VIAL IV ONE (03:04)
[2019-09-23] MEDS ORDERED: HYDROMORPHONE HCL INJ/PF 2 MG/ML AMPULE IV ONE ×2 (03:04→04:41)
[2019-09-23 03:05] LABS: ALBUMIN 4.2 g/dL (3.5-5.0); ALKALINE PHOSPHATASE 75 U/L (38-126); ANION GAP 5 (5-19); ASPARTATE AMINO TRANSFERASE 34 U/L (17-59); BILIRUBIN,DIRECT 0.2 mg/dL (0.0-0.4); BILIRUBIN,TOTAL 1.9 mg/dL (0.2-1.3); BLOOD UREA NITROGEN 8 mg/dL (7-20); CALCIUM 8.8 mg/dL (8.4-10.2); CARBON DIOXIDE 28 mmol/L (22-30); CHLORIDE 106 mmol/L (98-107); CREATINE KINASE 95 U/L (55-170); GLUCOSE 101 mg/dL (75-110); TOTAL PROTEIN 7.9 g/dL (6.3-8.2)
[2019-09-23] MEDS ORDERED: NORMAL SALINE 1000 ML 1,000 ML IV ONE (03:05)
--- NOTE | 2019-09-23 03:06 | ER Document Report ---
ED General - General Chief Complaint: Chest Pain > 30 Stated Complaint: CHEST PAIN Time Seen by Provider: 09/23/19 02:51 Primary Care Provider: REGGIE TAPIA PA-C [Primary Care Provider] - Follow up as needed Notes: Patient is a 38-year-old male who comes emergency department for chief complaint of pain with sickle cell crisis. Patient states that he is actually had worsening pain for most 1 week now, he states he has had pain with breathing specifically on the left side of his chest. He states he is worried he is getting pneumonia. He denies cough, fever, headache, abdominal pain, nausea, vomiting, flank pain. He denies other locations of pain. He follows with local oncology/hematology Dr. Pena. TRAVEL OUTSIDE OF THE [place] IN LAST 30 DAYS: No - Related Data Allergies/Adverse Reactions: famotidine [From Pepcid] Allergy (Severe, Verified 09/23/19 02:37) Anaphylaxis ketorolac tromethamine [From Toradol] Allergy (Severe, Verified 09/23/19 02:37) levofloxacin [From Levaquin] Allergy (Severe, Verified 09/23/19 02:37) meperidine HCl [From Demerol] Allergy (Severe, Verified 09/23/19 02:37) morphine [Morphine] Allergy (Severe, Verified 09/23/19 02:37) tramadol HCl [From Ultram] Allergy (Severe, Verified 09/23/19 02:37) amoxicillin [Amoxicillin] Allergy (Verified 09/23/19 02:37) fentanyl [Fentanyl] Allergy (Verified 09/23/19 02:37) latex [Latex] Allergy (Verified 09/23/19 02:37) ondansetron HCl [From Zofran] Allergy (Verified 09/23/19 02:37) Pork/Porcine Containing Products Allergy (Verified 09/23/19 02:37) promethazine Allergy (Verified 09/23/19 02:37) Home Medications: folic acid, hydroxea, sudafed, baclofin, terbutaline, colace prn Past Medical History - General Information source: Patient - Social History Smoking Status: Never Smoker Frequency of alcohol use: None Drug Abuse: None Lives with: Family Family History: Reviewed & Not Pertinent, Hypertension Patient has homicidal ideation: No - Past Medical History Cardiac Medical History: Denies: Hx Atrial Fibrillation, Hx Congestive Heart Failure, Hx Coronary Artery Disease, Hx Heart Attack, Hx Hypertension Pulmonary Medical History: Denies: Hx Asthma, Hx Bronchitis, Hx COPD, Hx Pneumonia, Hx Tuberculosis Neurological Medical History: Denies: Hx Cerebrovascular Accident, Hx Migraine, Hx Seizures, Hx Parkinson's Disease Endocrine Medical History: Denies: Hx Diabetes Mellitus Type 1, Hx Diabetes Mellitus Type 2 Renal/ Medical History: Denies: Hx Peritoneal Dialysis GI Medical History: Denies: Hx Cirrhosis, Hx Hepatitis Musculoskeletal Medical History: Denies Hx Arthritis, Denies Hx Gout, Reports Hx Musculoskeletal Deformity - right hip avascular necrosis Skin Medical History: Denies Hx Eczema, Denies Hx Psoriasis Psychiatric Medical History: Reports: Hx Depression Infectious Medical History: Denies: Hx Hepatitis Past Surgical History: Reports: Hx Appendectomy, Hx Vascular Surgery - L port placement, Other - Port placement - Immunizations Immunizations up to date: Yes Hx Diphtheria, Pertussis, Tetanus Vaccination: No Hx Pneumococcal Vaccination: 02/20/11 Review of Systems - Review of Systems Constitutional: See HPI EENT: No symptoms reported Cardiovascular: See HPI Respiratory: See HPI Gastrointestinal: No symptoms reported Genitourinary: No symptoms reported Male Genitourinary: No symptoms reported Musculoskeletal: See HPI Skin: No symptoms reported Hematologic/Lymphatic: No symptoms reported Neurological/Psychological: No symptoms reported Physical Exam - Vital signs Vitals: Temp Pulse Resp BP Pulse Ox 98.8 F 72 18 133/80 H 93 09/23/19 01:38 09/23/19 01:38 09/23/19 01:38 09/23/19 01:38 09/23/19 01:38 - Notes Notes: GENERAL: Somewhat thin in mildly chronically ill-appearing HEAD: Normocephalic, atraumatic. EYES: Pupils equal, round, and reactive to light. Extraocular movements intact. ENT: Oral mucosa moist, tongue midline. Oropharynx unremarkable. Airway patent. NECK: Full range of motion. Supple. Trachea midline. No lymphadenopathy. LUNGS: Clear to auscultation bilaterally, no wheezes, rales, or rhonchi. No respiratory distress. Tenderness to the chest wall mainly on the left side in the lower ribs along the lower sternum. No erythema, severe tenderness, or crepitus. No signs of trauma. HEART: Regular rate and rhythm. No murmur ABDOMEN: Soft, non-tender. Non-distended. Bowel sounds present in all 4 quadrants. GENITOURINARY: Deferred EXTREMITIES: Moves all 4 extremities spontaneously. No edema, normal radial and dorsalis pedis pulses bilaterally. No cyanosis. BACK: no cervical, thoracic, lumbar midline tenderness. No saddle anesthesia, normal distal neurovascular exam. Moves all extremities in full range of motion. NEUROLOGICAL: Alert and oriented x3. Normal speech. Cranial nerves II through XII grossly intact. Strength 5/5 in all extremities. PSYCH: Normal affect, normal mood. SKIN: Warm, dry, normal turgor. No rashes or lesions noted. Course - Re-evaluation Re-evalutation: Patient is quite well-appearing, has unremarkable vital signs, clear lungs, soft abdomen. He does have pain with palpation over the left chest wall. EKG without acute findings, chest x-ray unremarkable, CBC approximately baseline, reticulocyte count somewhat elevated. Bilirubin is only mildly elevated. Troponin is negative. On reevaluation after symptom management patient is actually improved, he is requesting another dose. After another dose I rechecked patient, patient asymptomatic, states he feels great, requesting discharge. He states he has close follow-up within 24 hours with primary/hematology. Discussed return precautions. Patient states understanding and agreement. Stable, asymptomatic, well-appearing at time of discharge. - Vital Signs Vital signs: Temp Pulse Resp BP Pulse Ox 98.8 F 72 10 L 134/95 H 100 09/23/19 02:06 09/23/19 01:38 09/23/19 06:56 09/23/19 06:56 09/23/19 06:56 - Laboratory Result Diagrams: 09/23/19 02:25 09/23/19 02:25 Laboratory results interpreted by me: 09/23/19 09/23/19 09/23/19 02:25 02:25 02:25 RBC 2.70 L Hgb 8.9 L Hct 25.3 L RDW 22.6 H Reticulocyte # 0.252 H Retic Count (auto) 9.42 H Total Bilirubin 1.9 H - EKG Interpretation by Me Additional EKG results interpreted by me: EKG shows sinus rhythm at a rate of 69. Normal axis. QTC of 407. No T wave inversions or ST segment changes in consecutive leads. Anterior Q waves are present, patient is very thin and tall. Discharge - Discharge Clinical Impression: Sickle-cell disease with pain, Chest wall pain Condition: Stable Disposition: HOME, SELF-CARE Additional Instructions: Follow-up with Dr. Pena/Vignesh closely for additional management. Return if you worsen including difficulty breathing, spiking fever, severe worsening pain, or something is not right. Referrals: REGGIE TAPIA PA-C [Primary Care Provider] - Follow up as needed
[2019-09-23 03:14] LABS: ABSOLUTE RETICS # 0.252 10^6/uL (0.028-0.122); RETICULOCYTE COUNT (AUTO) 9.42 % (0.66-2.85)
[2019-09-23 03:24] LABS: CREATINE KINASE MB < 0.22 ng/mL (<4.55); TROPONIN I < 0.012 ng/mL
[2019-09-23 03:25] LABS: ABSOLUTE LYMPHOCYTES# (MANUAL) 3.3 10^3/uL (0.5-4.7); ABSOLUTE MONOCYTES # (MANUAL) 0.4 10^3/uL (0.1-1.4); BASOPHILS % (MANUAL) 0 % (0-2); EOSINOPHILS % (MANUAL) 2 % (0-6); LYMPHOCYTES % (MANUAL) 45 % (13-45); MONOCYTES % (MANUAL) 5 % (3-13); NUCLEATED RED BLOOD CELLS 2 /100 WBC (0); SEGMENTED NEUTROPHILS % (MAN) 46 % (42-78); TOTAL CELLS COUNTED 100
[2019-09-23 03:28] LABS: ANISOCYTOSIS 3+
[2019-09-23 03:29] LABS: PLATELET COMMENT ADEQUATE; SICKLE RED CELLS 2+
[2019-09-23 03:30] LABS: TARGET CELLS 1+
[2019-09-23 03:31] LABS: POIKILOCYTOSIS 1+; POLYCHROMASIA 1+
--- NOTE | 2019-09-23 03:36 | RADIOLOGY REPORT (SQ) ---
CHEST 1 VIEW on 09/23/2019 at 3:23 AM CLINICAL INDICATION: Chest pain, sickle cell COMPARISON: 09/12/2019 FINDINGS: Left IJ Port-A-Cath tip is in the SVC. Mild cardiomegaly is noted. There are continued bilateral lower lung opacities consistent with atelectasis, scarring and/or pneumonia. Lungs are otherwise clear. Hilar and mediastinal contours are within normal limits. IMPRESSION: No significant change in the appearance of the chest.
[2019-09-23 07:03] VITALS: BP 134/95
--- NOTE | 2019-09-23 23:33 | EKG REPORT ---
SEVERITY:- ABNORMAL ECG - SINUS RHYTHM CONSIDER LEFT VENTRICULAR HYPERTROPHY ANTERIOR Q WAVES, POSSIBLY DUE TO LVH : Confirmed by: Enedina Traylor 23-Sep-2019 23:32:57
== END 2019-09-23 07:15 | disposition home or self-care (01) ==
LOC: ER 01:23
DX: D57.00 Hb-SS disease with crisis, unspecified (principal); R07.89 Other chest pain; Z88.3 Allergy status to other anti-infective agents; Z91.040 Latex allergy status
CPT/HCPCS: 93005; 36591; 96376; 99284; 96361; 96374; 96375; 36415; 82553; 82550; 85025; 85045; 80053; 84484; 71045; 93010; J1200; J1170; J7030; J1642

== ENCOUNTER 2019-09-23 07:48 | Outpatient (CLI) | payer MEDICARE, MEDICAID ==
[2019-09-23 08:13] VITALS: BP 153/89
== END 2019-09-23 10:07 | disposition home or self-care (01) ==
LOC: 5TH 07:48 → II 07:48
PROVIDERS: ATTEND Internal Medicine
DX: D57.1 Sickle-cell disease without crisis (principal); E86.0 Dehydration; R52 Pain, unspecified
CPT/HCPCS: 96365; 96375; 96361; J1200; J1170; J1642

== ENCOUNTER 2019-09-24 14:56 | Outpatient (CLI) | payer MEDICARE, MEDICAID ==
[2019-09-24 15:15] VITALS: BP 113/80
== END 2019-09-24 16:43 | disposition home or self-care (01) ==
LOC: II 14:56 → 5TH 14:58 → II 16:43
PROVIDERS: ATTEND Internal Medicine
DX: D57.1 Sickle-cell disease without crisis (principal); E86.0 Dehydration; R52 Pain, unspecified
CPT/HCPCS: 96365; 96375; 96361; J1200; J1170; J1642

== ENCOUNTER 2019-09-25 07:56 | Outpatient (CLI) | payer MEDICARE, MEDICAID ==
[2019-09-25] MEDS ORDERED: DIPHENHYDRAMINE HCL 50 MG/ML VIAL IV PRN (08:00)
[2019-09-25] MEDS ORDERED: DIPHENHYDRAMINE HCL 25 MG in NORMAL SALINE 50 ML IV PRN (08:00)
[2019-09-25] MEDS ORDERED: NORMAL SALINE 1000 ML 1,000 ML IV PRN (08:00)
[2019-09-25] MEDS ORDERED: HYDROMORPHONE HCL INJ/PF 2 MG/ML AMPULE IV PRN ×2 (08:00)
[2019-09-25 08:07] VITALS: BP 129/81
== END 2019-09-25 09:30 | disposition home or self-care (01) ==
LOC: II 07:56 → 5TH 08:01 → II 09:30
PROVIDERS: ATTEND Internal Medicine
DX: D57.1 Sickle-cell disease without crisis (principal); E86.0 Dehydration; R52 Pain, unspecified
CPT/HCPCS: 96365; 96375; 96361; J1200; J1170; J1642

== ENCOUNTER 2019-09-26 02:12 | Emergency (ER) | payer MEDICARE, MEDICAID ==
[2019-09-26] MEDS ORDERED: NORMAL SALINE 1000 ML 1,000 ML IV ONE (03:04)
[2019-09-26] MEDS ORDERED: DIPHENHYDRAMINE HCL 50 MG/ML VIAL IV ONE ×2 (03:04→06:10)
[2019-09-26] MEDS ORDERED: HYDROMORPHONE HCL INJ/PF 2 MG/ML AMPULE IV PRN ×2 (03:04→06:10)
[2019-09-26] MEDS ORDERED: HYDROMORPHONE HCL INJ/PF 2 MG/ML AMPULE IV ONE (03:10)
--- NOTE | 2019-09-26 03:12 | ER Document Report ---
ED General - General Chief Complaint: Abdominal Pain Stated Complaint: SICKLE CELL ISSUES Time Seen by Provider: 09/26/19 02:38 Primary Care Provider: BETH STAPLETON MD [ACTIVE STAFF] - Follow up as needed REGGIE TAPIA PA-C [Primary Care Provider] - Follow up as needed Notes: 38-year-old male presenting today for acute pain starting at 11 PM last night. States that he took his Oxy which did not alleviate his pain. States he is still unable to lay down and rest. Pain states his pain is on his lower back and diffusely across his abdomen. He feels generalized weakness and muscle pain. Denies any shortness of breath or chest pain at this time. Denies any fevers chills or additional symptoms. TRAVEL OUTSIDE OF THE [place] IN LAST 30 DAYS: No - Related Data Allergies/Adverse Reactions: famotidine [From Pepcid] Allergy (Severe, Verified 09/23/19 02:37) Anaphylaxis ketorolac tromethamine [From Toradol] Allergy (Severe, Verified 09/23/19 02:37) levofloxacin [From Levaquin] Allergy (Severe, Verified 09/23/19 02:37) meperidine HCl [From Demerol] Allergy (Severe, Verified 09/23/19 02:37) morphine [Morphine] Allergy (Severe, Verified 09/23/19 02:37) tramadol HCl [From Ultram] Allergy (Severe, Verified 09/23/19 02:37) amoxicillin [Amoxicillin] Allergy (Verified 09/23/19 02:37) fentanyl [Fentanyl] Allergy (Verified 09/23/19 02:37) latex [Latex] Allergy (Verified 09/23/19 02:37) ondansetron HCl [From Zofran] Allergy (Verified 09/23/19 02:37) Pork/Porcine Containing Products Allergy (Verified 09/23/19 02:37) promethazine Allergy (Verified 09/23/19 02:37) Past Medical History - Social History Smoking Status: Never Smoker Frequency of alcohol use: None Drug Abuse: None Family History: Reviewed & Not Pertinent, Hypertension Patient has homicidal ideation: No - Past Medical History Cardiac Medical History: Denies: Hx Atrial Fibrillation, Hx Congestive Heart Failure, Hx Coronary Artery Disease, Hx Heart Attack, Hx Hypertension Pulmonary Medical History: Denies: Hx Asthma, Hx Bronchitis, Hx COPD, Hx Pneumonia, Hx Tuberculosis Neurological Medical History: Denies: Hx Cerebrovascular Accident, Hx Migraine, Hx Seizures, Hx Parkinson's Disease Endocrine Medical History: Denies: Hx Diabetes Mellitus Type 1, Hx Diabetes Mellitus Type 2 Renal/ Medical History: Denies: Hx Peritoneal Dialysis GI Medical History: Denies: Hx Cirrhosis, Hx Hepatitis Musculoskeletal Medical History: Denies Hx Arthritis, Denies Hx Gout, Reports Hx Musculoskeletal Deformity - right hip avascular necrosis Skin Medical History: Denies Hx Eczema, Denies Hx Psoriasis Psychiatric Medical History: Reports: Hx Depression Infectious Medical History: Denies: Hx Hepatitis Past Surgical History: Reports: Hx Appendectomy, Hx Vascular Surgery - L port placement, Other - Port placement - Immunizations Immunizations up to date: Yes Hx Diphtheria, Pertussis, Tetanus Vaccination: No Hx Pneumococcal Vaccination: 02/20/11 Physical Exam - Vital signs Vitals: Temp Pulse Resp BP Pulse Ox 98.3 F 76 16 139/65 H 97 09/26/19 02:23 09/26/19 02:23 09/26/19 02:23 09/26/19 02:23 09/26/19 02:23 - Notes Notes: Adult General: GENERAL: Alert, interacts well. No acute distress HEAD: Normocephalic, atraumatic EYES: Extraocular movements intact. ENT: Airway patent. Nares patent. NECK: Full range of motion. Supple. Trachea midline. LUNGS: Clear to auscultation bilaterally, no wheezes, rales, or rhonchi. No respiratory distress. Nontender chest wall. HEART: Regular rate and rhythm. No murmurs, rubs or gallops. ABDOMEN: Soft, nontender. Nondistended. Bowel sounds present in all 4 quadrants. GENITOURINARY: Deferred EXTREMITIES: Moves all 4 extremities spontaneously. No edema, normal radial and dorsal pedis pulses bilaterally. No cyanosis. BACK: No cervical, thoracic, lumbar midline tenderness. No saddle anesthesia, normal distal neurovascular exam. Moves all extremities with full range of motion. NEUROLOGICAL: Alert and oriented x3. Normal speech. Strength 5/ 5 in all extremities. PSYCH: Normal affect, normal mood. SKIN: Warm, dry, normal turgor. No rashes or lesions noted. Course - Re-evaluation Re-evalutation: Reassess the patient. States that the pain that he came in with has decreased. His port was accessed with a larger needle than what is typically accessed with. He tells me now that the port is usually accessed with a 3/8 needle. States when they put the needle and he felt a scraping and now he continues to feel pain at the port site. He denies any shortness of breath. And his vitals are stable and his he is not tachycardic or hypoxic. Port is flushing appropriately. Discontinued fluids through the port. Patient states he still is in slight pain after initial dose of Dilaudid. Additional Dilaudid was ordered, but patient does not desire additional access through port. Has mild discomfort at port site but no signs of infection or additional concerns. Hemoglobin is 8.7 which appears to be around his normal baseline. Reticulocyte count is 12.3. Continues to be in no acute distress. He is able to ambulate. As pain has decreased, he denies chest pain, is not tachycardic or hypoxic patient can be discharged with close follow up with hematology/oncology. Return precautions discussed with patient to include fever, chills, chest pain, shortness of breath. Patient acknowledges and verbalizes understanding of instructions. - Vital Signs Vital signs: Temp Pulse Resp BP Pulse Ox 98.3 F 76 12 148/98 H 100 09/26/19 02:27 09/26/19 02:23 09/26/19 06:01 09/26/19 06:01 09/26/19 06:01 - Laboratory Result Diagrams: 09/26/19 03:58 09/26/19 03:58 Laboratory results interpreted by me: 09/26/19 09/26/19 03:58 03:58 RBC 2.59 L Hgb 8.7 L Hct 24.3 L MCH 33.7 H RDW 22.5 H Reticulocyte # 0.318 H Monocytes % (Manual) 14 H Retic Count (auto) 12.30 H Total Bilirubin 1.5 H Discharge - Discharge Clinical Impression: Sickle cell anemia with pain Condition: Stable Disposition: HOME, SELF-CARE Referrals: REGGIE TAPIA PA-C [Primary Care Provider] - Follow up as needed BETH STAPLETON MD [ACTIVE STAFF] - Follow up as needed
[2019-09-26 04:13] LABS: ABSOLUTE RETICS # 0.318 10^6/uL (0.028-0.122); HEMATOCRIT 24.3 % (37.9-51.0); HEMOGLOBIN 8.7 g/dL (13.5-17.0); MEAN CORPUSCULAR HEMOGLOBIN 33.7 pg (27.0-33.4); MEAN CORPUSCULAR HGB CONC 35.8 g/dL (32.0-36.0); MEAN CORPUSCULAR VOLUME 94 fl (80-97); PLATELET COUNT 328 10^3/uL (150-450); RED BLOOD COUNT 2.59 10^6/uL (4.35-5.55); RED CELL DISTRIBUTION WIDTH 22.5 % (11.5-14.0); WHITE BLOOD COUNT 6.5 10^3/uL (4.0-10.5)
[2019-09-26 04:36] LABS: ALKALINE PHOSPHATASE 85 U/L (38-126); ANION GAP 5 (5-19); ASPARTATE AMINO TRANSFERASE 33 U/L (17-59); BILIRUBIN,TOTAL 1.5 mg/dL (0.2-1.3); BLOOD UREA NITROGEN 7 mg/dL (7-20); CALCIUM 8.9 mg/dL (8.4-10.2); CARBON DIOXIDE 28 mmol/L (22-30); CHLORIDE 105 mmol/L (98-107); GLUCOSE 95 mg/dL (75-110); POTASSIUM 3.7 mmol/L (3.6-5.0); TOTAL PROTEIN 7.7 g/dL (6.3-8.2)
[2019-09-26 04:53] LABS: ABSOLUTE LYMPHOCYTES# (MANUAL) 2.2 10^3/uL (0.5-4.7); ABSOLUTE MONOCYTES # (MANUAL) 0.9 10^3/uL (0.1-1.4); BASOPHILS % (MANUAL) 2 % (0-2); EOSINOPHILS % (MANUAL) 4 % (0-6); LYMPHOCYTES % (MANUAL) 34 % (13-45); MONOCYTES % (MANUAL) 14 % (3-13); NUCLEATED RED BLOOD CELLS 1 /100 WBC (0); SEGMENTED NEUTROPHILS % (MAN) 46 % (42-78); TOTAL CELLS COUNTED 100
[2019-09-26 04:55] LABS: ANISOCYTOSIS 3+; OVALOCYTES 1+; PLATELET COMMENT ADEQUATE; POIKILOCYTOSIS 3+; SCHISTOCYTES 2+; TEAR DROP CELLS SLIGHT; TOXIC GRANULATION 1+
[2019-09-26 06:19] VITALS: BP 148/98
[2019-09-26 07:38] LABS: APPEARANCE,URINE CLEAR; BILIRUBIN,URINE NEGATIVE (NEGATIVE); COLOR,URINE STRAW; GLUCOSE, URINE NEGATIVE (NEGATIVE); KETONES,URINE NEGATIVE (NEGATIVE); LEUKOCYTE ESTERASE,URINE NEGATIVE (NEGATIVE); NITRITE,URINE NEGATIVE (NEGATIVE); PROTEIN,URINE NEGATIVE (NEGATIVE); URINE SPECIFIC GRAVITY 1.009; UROBILINOGEN,URINE NEGATIVE mg/dL (<2.0)
== END 2019-09-26 07:02 | disposition home or self-care (01) ==
LOC: ER 02:12
DX: D57.1 Sickle-cell disease without crisis (principal); M79.10 Myalgia, unspecified site; R53.1 Weakness; Z88.6 Allergy status to analgesic agent; Z88.0 Allergy status to penicillin; Z88.3 Allergy status to other anti-infective agents; Z91.040 Latex allergy status
CPT/HCPCS: 36591; 99284; 96361; 96374; 96375; 36415; 85025; 85045; 80053; 81001; J1200; J1170; J7030; J1642

== ENCOUNTER → 2019-09-28 | Outpatient (CLI) | payer MEDICARE, MEDICAID ==
[~2019-09-28] MED LIST changes: -DIPHENHYDRAMINE HCL 25 MG in NORMAL SALINE 50 ML IV PRN; +DIPHENHYDRAMINE HCL 50 MG/ML VIAL IV ONE; +DIPHENHYDRAMINE HCL 50 MG/ML VIAL ONE; +HYDROMORPHONE HCL INJ/PF 2 MG/ML AMPULE IV ONE; -HYDROMORPHONE HCL INJ/PF 2 MG/ML AMPULE IV PRN; +HYDROMORPHONE HCL INJ/PF 2 MG/ML AMPULE ONE
[2019-09-28 15:25] VITALS: BP 148/89
== END ==
LOC: ASU 13:08
PROVIDERS: ATTEND Internal Medicine
DX: D57.1 Sickle-cell disease without crisis (principal); E86.0 Dehydration; R52 Pain, unspecified
CPT/HCPCS: 96374; 96375; 96361; J1200; J1170; J1642

== ENCOUNTER 2019-09-29 02:07 | Emergency (ER) | payer MEDICARE, MEDICAID ==
[2019-09-29] MEDS ORDERED: HYDROMORPHONE HCL INJ/PF 2 MG/ML AMPULE IV ONE ×3 (06:36→10:44)
[2019-09-29] MEDS ORDERED: NORMAL SALINE 1000 ML 1,000 ML IV ONE ×3 (06:37→08:09)
[2019-09-29] MEDS ORDERED: DIPHENHYDRAMINE HCL 50 MG/ML VIAL IV ONE (06:37)
--- NOTE | 2019-09-29 06:38 | ER Document Report ---
ED General Pain - General TRAVEL OUTSIDE OF THE [place] IN LAST 30 DAYS: No <IVIS SABA - Last Filed: 09/29/19 08:47> <RADHA AMBROSIO - Last Filed: 09/29/19 13:08> - General Chief Complaint: Sickle Cell Crisis Stated Complaint: SICKLE CELL CRISIS Time Seen by Provider: 09/29/19 06:23 Primary Care Provider: BETH MEDELLIN MD [Primary Care Provider] - Follow up as needed Notes: Patient is a 38-year-old male, well-known to this emergency department who presents to the emergency department for sickle cell pain crisis. Patient states that his pain is in his joints in his shoulders, and his knee, and in his foot. Patient denies any chest pain, shortness of breath, difficulty breathing, or any other symptoms. Patient states that he was supposed to go in for an x- ray of his right foot, but has not been able to. Patient states that every time he walks on his right foot, it hurts. States the pain is near the heel. Patient just finished a course of doxycycline for pneumonia. (IVIS SABA) - Related Data Allergies/Adverse Reactions: famotidine [From Pepcid] Allergy (Severe, Verified 09/23/19 02:37) Anaphylaxis ketorolac tromethamine [From Toradol] Allergy (Severe, Verified 09/23/19 02:37) levofloxacin [From Levaquin] Allergy (Severe, Verified 09/23/19 02:37) meperidine HCl [From Demerol] Allergy (Severe, Verified 09/23/19 02:37) morphine [Morphine] Allergy (Severe, Verified 09/23/19 02:37) tramadol HCl [From Ultram] Allergy (Severe, Verified 09/23/19 02:37) amoxicillin [Amoxicillin] Allergy (Verified 09/23/19 02:37) fentanyl [Fentanyl] Allergy (Verified 09/23/19 02:37) latex [Latex] Allergy (Verified 09/23/19 02:37) ondansetron HCl [From Zofran] Allergy (Verified 09/23/19 02:37) Pork/Porcine Containing Products Allergy (Verified 09/23/19 02:37) promethazine Allergy (Verified 09/23/19 02:37) Past Medical History - Social History Smoking Status: Never Smoker Frequency of alcohol use: None Drug Abuse: None Family History: Reviewed & Not Pertinent, Hypertension Patient has homicidal ideation: No - Past Medical History Cardiac Medical History: Denies: Hx Atrial Fibrillation, Hx Congestive Heart Failure, Hx Coronary Artery Disease, Hx Heart Attack, Hx Hypertension Pulmonary Medical History: Denies: Hx Asthma, Hx Bronchitis, Hx COPD, Hx Pneumonia, Hx Tuberculosis Neurological Medical History: Denies: Hx Cerebrovascular Accident, Hx Migraine, Hx Seizures, Hx Parkinson's Disease Endocrine Medical History: Denies: Hx Diabetes Mellitus Type 1, Hx Diabetes Mellitus Type 2 Renal/ Medical History: Denies: Hx Peritoneal Dialysis GI Medical History: Denies: Hx Cirrhosis, Hx Hepatitis Musculoskeletal Medical History: Denies Hx Arthritis, Denies Hx Gout, Reports Hx Musculoskeletal Deformity - right hip avascular necrosis Skin Medical History: Denies Hx Eczema, Denies Hx Psoriasis Psychiatric Medical History: Reports: Hx Depression Infectious Medical History: Denies: Hx Hepatitis Past Surgical History: Reports: Hx Appendectomy, Hx Vascular Surgery - L port placement, Other - Port placement - Immunizations Immunizations up to date: Yes Hx Diphtheria, Pertussis, Tetanus Vaccination: No Hx Pneumococcal Vaccination: 02/20/11 <JAYANTIVIS Smith - Last Filed: 09/29/19 08:47> Review of Systems <JAYANTIVIS Luis - Last Filed: 09/29/19 08:47> - Review of Systems Notes: REVIEW OF SYSTEMS: CONSTITUTIONAL : Denies recent illness. Denies recent unintentional weight loss. Denies fever, chills, or sweats. EENT: Denies eye, ear, throat, or mouth pain, discharge, or symptoms. Denies nasal or sinus congestion. CARDIOVASCULAR: Denies chest pain. RESPIRATORY: Denies shortness of breath, cough, congestion, difficulty breathing, or wheezing. GASTROINTESTINAL: Denies nausea, vomiting, and diarrhea. Denies abdominal pain. Denies constipation. GENITOURINARY: Denies difficulty urinating, burning, blood in urine, urgency or frequency. MUSCULOSKELETAL: Denies neck and back pain. See HPI. SKIN: Denies rash, itchiness, or lesions HEMATOLOGIC : Denies easy bruising or bleeding. LYMPHATIC: Denies swollen, painful, enlarged glands. NEUROLOGICAL: Denies no numbness or tingling denies weakness. Denies headache. Denies altered mental status. Denies alteration in speech. PSYCHIATRIC: Denies stress, anxiety, alteration in sleep patterns, or de pression. All other systems reviewed and negative. (IVIS SABA) Physical Exam <IVIS SABA - Last Filed: 09/29/19 08:47> - Vital signs Vitals: Temp 98.1 F 09/29/19 02:19 - Notes Notes: PHYSICAL EXAMINATION: GENERAL: Appears well, healthy, well-nourished, no acute distress. HEAD: Normocephalic, atraumatic. EYES: PERRL, conjunctiva normal, all extraocular movements intact, sclera nonicteric ENT: Moist mucous membranes. NECK: Supple, no noticeable swelling, redness, rash. Normal range of motion. LUNGS: Equal breath sounds bilaterally and clear to auscultation. No wheezes rales or rhonchi. CARDIOVASCULAR: S1-S2, regular rate, regular rhythm. Radial pulses 2+, normal. ABDOMEN: Normoactive bowel sounds. Soft, nontender, no guarding, no rebound tenderness, and no masses palpated. EXTREMITIES: Normal strength and range of motion, no pitting or edema. No cyanosis. Tenderness noted to right heel. NEUROLOGICAL: Moves all extremities upon command. Strength 5/5 in all extremities. PSYCH: Normal mood, normal affect. SKIN: Warm, dry. No rash, lesions, ulcerations noted. Normal skin turgor. Small amount of erythema noted to right heel. (IVIS SABA) Course - Laboratory Result Diagrams: 09/29/19 06:50 09/29/19 06:50 <IVIS SABA - Last Filed: 09/29/19 08:47> - Laboratory Result Diagrams: 09/29/19 06:50 09/29/19 06:50 - Diagnostic Test Radiology reviewed: Reports reviewed <RADHA AMBROSIO - Last Filed: 09/29/19 13:08> - Re-evaluation Re-evalutation: 09/29/19 08:[address] Medellin in regards to the patient's care. Right foot x-ray is unremarkable. Chemistries are unremarkable. Patient's hematology is also unchanged from his previous visit 3 days ago. Reticulocyte count is 12.22, which is better than 3 days ago. 09/29/19 08:45 Report given to DESHAWN Irwin. She will continue to follow the patient. The patient's pain is not under control after receiving his third dose of Dilaudid, patient will be admitted. (IVIS SABA) 09/29/19 08:45 assumed care from Ivis Saba, nurse practitioner. Patient did not get his previous dose of Dilaudid as he want to wait until he got his ultrasound. 09/29/19 10:43 Reviewed ultrasound results with patient. Examined heel of right foot. Tenderness on palpation to the sole of the left heel, consistent with plantar fasciitis. Patient is requesting his Dilaudid that he refused earlier. Will reevaluate after medications given. 09/29/19 13:06 Patient is resting comfortably states his pain is improved feels well enough to go home. Follow-up appointment tomorrow with Dr. Medellin for infusions. Continue his current home medications. Discussed getting a heel insert for his plantar fasciitis. Patient was given strict return to the emergency room guidelines. Return for any new or worsening symptoms. All questions were answered. Patient verbalized understanding and agrees with plan of care. (RADHA AMBROSIO) - Vital Signs Vital signs: Temp Pulse Resp BP Pulse Ox 97.6 F 57 L 14 144/101 H 100 09/29/19 09:31 09/29/19 02:20 09/29/19 12:01 09/29/19 12:01 09/29/19 12:01 - Laboratory Laboratory results interpreted by me: 09/29/19 09/29/19 06:50 06:50 RBC 2.93 L Hgb 9.6 L Hct 27.7 L RDW 21.0 H Reticulocyte # 0.358 H Retic Count (auto) 12.22 H Total Bilirubin 1.9 H Discharge <IVIS SABA - Last Filed: 09/29/19 08:47> <RADHA AMBROSIO - Last Filed: 09/29/19 13:08> - Discharge Clinical Impression: Opiate dependence, continuous, Sickle cell crisis, Plantar fasciitis, right Joint pain Qualifiers: Joint pain location: unspecified Qualified Code(s): M25.50 - Pain in unspecified joint Chronic pain Qualifiers: Chronic pain type: other chronic pain Qualified Code(s): G89.29 - Other chronic pain Condition: Stable Disposition: HOME, SELF-CARE Instructions: Plantar Fasciitis or Heel Spur ([facility]), Sickle Cell Crisis ([facility]), Chronic Pain Control ([facility]) Additional Instructions: You were seen today for sickle cell pain crisis. 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 Returning to the ED if you have worsening pain, fever greater than 100.4, shortness of breath, persistent vomiting, or any other symptoms that are concerning to you. Use heel inserts as discussed. Continue your current home medications. Referrals: BETH MEDELLIN MD [Primary Care Provider] - Follow up as needed
[2019-09-29 07:14] LABS: ABSOLUTE RETICS # 0.358 10^6/uL (0.028-0.122); HEMATOCRIT 27.7 % (37.9-51.0); HEMOGLOBIN 9.6 g/dL (13.5-17.0); MEAN CORPUSCULAR HEMOGLOBIN 32.8 pg (27.0-33.4); MEAN CORPUSCULAR HGB CONC 34.7 g/dL (32.0-36.0); MEAN CORPUSCULAR VOLUME 95 fl (80-97); PLATELET COUNT 414 10^3/uL (150-450); RED BLOOD COUNT 2.93 10^6/uL (4.35-5.55); RETICULOCYTE COUNT (AUTO) 12.22 % (0.66-2.85)
--- NOTE | 2019-09-29 07:24 | RADIOLOGY REPORT (SQ) ---
Right foot radiographs: 09/29/2019 6:22 AM CDT TECHNIQUE: AP, lateral, oblique images of the right foot were obtained. COMPARISON: None available HISTORY: 38-year old patient with right foot pain. FINDINGS: The visualized soft tissues appear unremarkable. There are no acute osseous abnormalities to suggest a fracture or subluxation within the right foot. IMPRESSION: No acute osseous abnormality is seen within the right foot.
[2019-09-29 07:39] LABS: ALBUMIN 4.2 g/dL (3.5-5.0); ALKALINE PHOSPHATASE 83 U/L (38-126); ANION GAP 5 (5-19); ASPARTATE AMINO TRANSFERASE 32 U/L (17-59); BILIRUBIN,DIRECT 0.1 mg/dL (0.0-0.4); BILIRUBIN,TOTAL 1.9 mg/dL (0.2-1.3); BLOOD UREA NITROGEN 7 mg/dL (7-20); CALCIUM 8.5 mg/dL (8.4-10.2); CARBON DIOXIDE 28 mmol/L (22-30); CHLORIDE 105 mmol/L (98-107); GLUCOSE 95 mg/dL (75-110); POTASSIUM 3.8 mmol/L (3.6-5.0)
[2019-09-29 07:46] LABS: ABSOLUTE MONOCYTES # (MANUAL) 0.4 10^3/uL (0.1-1.4); BASOPHILS % (MANUAL) 0 % (0-2); EOSINOPHILS % (MANUAL) 1 % (0-6); LYMPHOCYTES % (MANUAL) 29 % (13-45); MONOCYTES % (MANUAL) 5 % (3-13); NUCLEATED RED BLOOD CELLS 1 /100 WBC (0); SEGMENTED NEUTROPHILS % (MAN) 65 % (42-78); TOTAL CELLS COUNTED 100
[2019-09-29 07:47] LABS: POLYCHROMASIA 2+
[2019-09-29 07:48] LABS: ANISOCYTOSIS 3+; OVALOCYTES 1+; POIKILOCYTOSIS 2+; SICKLE RED CELLS SLIGHT; TARGET CELLS 1+
[2019-09-29 07:58] LABS: PLATELET COMMENT ADEQUATE
--- NOTE | 2019-09-29 09:51 | RADIOLOGY REPORT (SQ) ---
EXAM DESCRIPTION: VENOUS UNILATERAL LOWER IMAGES COMPLETED DATE/TIME: 09/29/2019 9:29 am REASON FOR STUDY: RLE pain COMPARISON: None. TECHNIQUE: Dynamic and static franklin scale and color images acquired of the right leg venous system. S elected spectral images acquired with additional compression and augmentation maneuvers. The contrala teral common femoral vein and saphenofemoral junction were also imaged. Images stored on PACS. LIMITATIONS: None. FINDINGS: COMMON FEMORAL: Normal phasicity, compression and augmentation. No visualized echogenic ma terial on franklin scale. No defects on color images. FEMORAL: Normal compression and augmentation. No visualized echogenic material on franklin scale. No defe cts on color images. POPLITEAL: Normal compression, augmentation. No visualized echogenic material on franklin scale. No defec ts on color images. CALF VESSELS: Normal compression, augmentation. No visualized echogenic material on franklin scale. No de fects on color images. GSV and SSV: Normal compression, augmentation. No visualized echogenic material on franklin scale. No def ects on color images. ANY DEEP VENOUS INSUFFICIENCY: Not evaluated. ANY EVIDENCE OF POPLITEAL CYST: No. OTHER: No other significant finding. CONTRALATERAL COMMON FEMORAL VEIN AND SAPHENOFEMORAL JUNCTION: Normal phasicity, compression and augmentation. No visualized echogenic material on franklin scale. No de fects on color images. IMPRESSION: NO EVIDENCE DVT OR SVT IN THE RIGHT LEG. TECHNICAL DOCUMENTATION: JOB ID: [id number] 2010 [employer]- All Rights Reserved Reading location - IP/workstation name: [email or web address]
[2019-09-29 13:13] VITALS: BP 140/104
== END 2019-09-29 13:20 | disposition home or self-care (01) ==
LOC: ER 02:07
DX: K57.00 Diverticulitis of small intestine with perforation and abscess without bleeding (principal); F11.20 Opioid dependence, uncomplicated; M72.2 Plantar fascial fibromatosis; M25.579 Pain in unspecified ankle and joints of unspecified foot; M25.511 Pain in right shoulder; M25.512 Pain in left shoulder; M25.569 Pain in unspecified knee; G89.29 Other chronic pain; Z87.892 Personal history of anaphylaxis; Z88.8 Allergy status to other drugs, medicaments and biological substances; Z88.1 Allergy status to other antibiotic agents; Z88.6 Allergy status to analgesic agent; Z88.5 Allergy status to narcotic agent; Z88.0 Allergy status to penicillin; Z91.040 Latex allergy status; Z91.018 Allergy to other foods
CPT/HCPCS: 36591; 96376; 99284; 96361; 96374; 96375; 96365; 96366; 36415; 85025; 85045; 80053; 93971; 73630; J1200; J1170; J7030; J1642

== ENCOUNTER 2019-09-30 01:13 | Inpatient (IN) | payer MEDICARE, MEDICAID ==
[2019-09-30] MEDS ORDERED: DIPHENHYDRAMINE HCL 50 MG/ML VIAL IV ONE ×2 (01:33→03:15)
[2019-09-30] MEDS ORDERED: HYDROMORPHONE HCL INJ/PF 2 MG/ML AMPULE IV ONE ×5 (01:33→08:13)
--- NOTE | 2019-09-30 01:36 | ER Document Report ---
ED Medical Screen (RME) - General Stated Complaint: SICKLE CELL Time Seen by Provider: 09/30/19:29 Primary Care Provider: BETH STAPLETON MD [Primary Care Provider] - Follow up as needed Notes: Patient is a 38-year-old male who presents the emergency department with a chief complaint of generalized joint pain, primarily in bilateral shoulders and right foot. Patient has history of sickle cell disease. Patient was seen here in the emergency department yesterday. Dr. Stapleton, his histotechnologist supervisor wanted him to be admitted for sickle cell pain crisis. Exam: Tenderness to the bilateral shoulders. I have greeted and performed a rapid initial assessment of this patient. A comprehensive ED assessment and evaluation of the patient, analysis of test results and completion of medical decision making process will be conducted by an additional ED providers. TRAVEL OUTSIDE OF THE [place] IN LAST 30 DAYS: No - Related Data Allergies/Adverse Reactions: famotidine [From Pepcid] Allergy (Severe, Verified 09/30/19:) Anaphylaxis ketorolac tromethamine [From Toradol] Allergy (Severe, Verified 09/30/19:) levofloxacin [From Levaquin] Allergy (Severe, Verified 09/30/19:) meperidine HCl [From Demerol] Allergy (Severe, Verified 09/30/19:) morphine [Morphine] Allergy (Severe, Verified 09/30/19:) tramadol HCl [From Ultram] Allergy (Severe, Verified 09/30/19:) amoxicillin [Amoxicillin] Allergy (Verified 09/30/19:) fentanyl [Fentanyl] Allergy (Verified 09/30/19:) latex [Latex] Allergy (Verified 09/30/19:) ondansetron HCl [From Zofran] Allergy (Verified 09/30/19:) Pork/Porcine Containing Products Allergy (Verified 09/30/19:) promethazine Allergy (Verified 09/30/19) Past Medical History - Past Medical History Cardiac Medical History: Denies: Hx Atrial Fibrillation, Hx Congestive Heart Failure, Hx Coronary Artery Disease, Hx Heart Attack, Hx Hypertension Pulmonary Medical History: Denies: Hx Asthma, Hx Bronchitis, Hx COPD, Hx Pneumonia, Hx Tuberculosis Neurological Medical History: Denies: Hx Cerebrovascular Accident, Hx Migraine, Hx Seizures, Hx Parkinson's Disease Endocrine Medical History: Denies: Hx Diabetes Mellitus Type 1, Hx Diabetes Mellitus Type 2 Renal/ Medical History: Denies: Hx Peritoneal Dialysis GI Medical History: Denies: Hx Cirrhosis, Hx Hepatitis Musculoskeltal Medical History: Denies Hx Arthritis, Denies Hx Gout, Reports Hx Musculoskeletal Deformity - right hip avascular necrosis Skin Medical History: Denies Hx Eczema, Denies Hx Psoriasis Psychiatric Medical History: Reports: Hx Depression Infectious Medical History: Denies: Hx Hepatitis Past Surgical History: Reports: Hx Appendectomy, Hx Vascular Surgery - L port placement, Other - Port placement - Immunizations Immunizations up to date: Yes Hx Diphtheria, Pertussis, Tetanus Vaccination: No Physical Exam - Vital signs Vitals: Temp Pulse Resp BP Pulse Ox 98.3 F 63 18 156/91 H 94 09/30/19 01:18 09/30/19 01:18 09/30/19 01:18 09/30/19 01:18 09/30/19 01:18 Course - Vital Signs Vital signs: Temp Pulse Resp BP Pulse Ox 98.3 F 63 18 156/91 H 94 09/30/19 01:18 09/30/19 01:18 09/30/19 01:18 09/30/19 01:18 09/30/19 01:18 Doctor's Discharge - Discharge Referrals: BETH STAPLETON MD [Primary Care Provider] - Follow up as needed
[2019-09-30 02:10] LABS: ABSOLUTE RETICS # 0.307 10^6/uL (0.028-0.122); HEMOGLOBIN 9.4 g/dL (13.5-17.0); MEAN CORPUSCULAR HEMOGLOBIN 32.9 pg (27.0-33.4); MEAN CORPUSCULAR HGB CONC 34.8 g/dL (32.0-36.0); MEAN CORPUSCULAR VOLUME 95 fl (80-97); PLATELET COUNT 412 10^3/uL (150-450); RED BLOOD COUNT 2.86 10^6/uL (4.35-5.55); RETICULOCYTE COUNT (AUTO) 10.73 % (0.66-2.85); WHITE BLOOD COUNT 7.5 10^3/uL (4.0-10.5)
[2019-09-30 02:30] LABS: ALBUMIN 4.1 g/dL (3.5-5.0); ALKALINE PHOSPHATASE 81 U/L (38-126); ANION GAP 7 (5-19); ASPARTATE AMINO TRANSFERASE 27 U/L (17-59); BILIRUBIN,TOTAL 1.7 mg/dL (0.2-1.3); BLOOD UREA NITROGEN 8 mg/dL (7-20); CALCIUM 8.7 mg/dL (8.4-10.2); CARBON DIOXIDE 28 mmol/L (22-30); CHLORIDE 104 mmol/L (98-107); GLUCOSE 105 mg/dL (75-110); POTASSIUM 3.8 mmol/L (3.6-5.0); TOTAL PROTEIN 7.8 g/dL (6.3-8.2)
[2019-09-30 02:46] LABS: ABSOLUTE LYMPHOCYTES# (MANUAL) 1.9 10^3/uL (0.5-4.7); ABSOLUTE MONOCYTES # (MANUAL) 0.7 10^3/uL (0.1-1.4); ANISOCYTOSIS 3+; BAND NEUTROPHILS % (MANUAL) 1 % (3-5); BASOPHILS % (MANUAL) 1 % (0-2); EOSINOPHILS % (MANUAL) 1 % (0-6); LYMPHOCYTES % (MANUAL) 25 % (13-45); MONOCYTES % (MANUAL) 9 % (3-13); NUCLEATED RED BLOOD CELLS 1 /100 WBC (0); PLATELET COMMENT ADEQUATE; POLYCHROMASIA 1+; SEGMENTED NEUTROPHILS % (MAN) 63 % (42-78); SICKLE RED CELLS 2+; TOTAL CELLS COUNTED 100
[2019-09-30 02:47] LABS: POIKILOCYTOSIS 1+; TARGET CELLS SLIGHT
--- NOTE | 2019-09-30 03:27 | RADIOLOGY REPORT (SQ) ---
EXAM: X-ray shoulder two or more views bilateral CLINICAL DATA: 38-year-old male with sickle cell crisis and shoulder pain TECHNICAL DATA: Two x-ray views of each shoulder were performed on 09/30/2019 at 2:59 AM. COMPARISONS: Prior chest x-rays performed on 09/23/2019 and 09/12/2019 FINDINGS: RIGHT: There is no evidence of fracture or dislocation. There is no significant arthritis or degenerative change. No focal lytic or sclerotic bone lesions are seen. Bone mineralization is normal. No focal soft tissue abnormalities are identified. The tip of the left-sided central venous catheter overlies the region of the superior vena cava. LEFT: There is no evidence of fracture or dislocation. There is no significant arthritis or degenerative change. No focal lytic or sclerotic bone lesions are seen. Bone mineralization is normal. No focal soft tissue abnormalities are identified. There is a left-sided [id number] catheter which overlies the left hemithorax. A zipper pull projects over the superior medial left hemithorax. IMPRESSION: No evidence of acute osseous injury involving either shoulder. No focal osseous abnormalities are identified.
[2019-09-30] MEDS ORDERED: NORMAL SALINE 1000 ML 1,000 ML IV ONE (04:53)
--- NOTE | 2019-09-30 07:34 | ER Document Report ---
ED General Pain - General Chief Complaint: Sickle Cell Crisis Stated Complaint: SICKLE CELL Time Seen by Provider: 09/30/19:29 Primary Care Provider: BETH STAPLETON MD [Primary Care Provider] - Follow up as needed Notes: Patient is a 38-year-old male who presents the emergency department with a chief complaint of generalized joint pain, primarily in bilateral shoulders and right foot. Patient has history of sickle cell disease. Patient was seen here in the emergency department yesterday. Dr. Stapleton, his airplane dispatcher wanted him to be admitted for sickle cell pain crisis. TRAVEL OUTSIDE OF THE [place] IN LAST 30 DAYS: No - Related Data Allergies/Adverse Reactions: famotidine [From Pepcid] Allergy (Severe, Verified 09/30/19:) Anaphylaxis ketorolac tromethamine [From Toradol] Allergy (Severe, Verified 09/30/19:) levofloxacin [From Levaquin] Allergy (Severe, Verified 09/30/19:) meperidine HCl [From Demerol] Allergy (Severe, Verified 09/30/19:) morphine [Morphine] Allergy (Severe, Verified 09/30/19:29) tramadol HCl [From Ultram] Allergy (Severe, Verified 09/30/19:) amoxicillin [Amoxicillin] Allergy (Verified 09/30/19:) fentanyl [Fentanyl] Allergy (Verified 09/30/19:) latex [Latex] Allergy (Verified 09/30/19:29) ondansetron HCl [From Zofran] Allergy (Verified 09/30/19:29) Pork/Porcine Containing Products Allergy (Verified 09/30/19:) promethazine Allergy (Verified 09/30/19:29) Past Medical History - Social History Smoking Status: Former Smoker Frequency of alcohol use: None Drug Abuse: None Family History: Reviewed & Not Pertinent, Hypertension Patient has homicidal ideation: No - Past Medical History Cardiac Medical History: Denies: Hx Atrial Fibrillation, Hx Congestive Heart Failure, Hx Coronary Artery Disease, Hx Heart Attack, Hx Hypertension Pulmonary Medical History: Denies: Hx Asthma, Hx Bronchitis, Hx COPD, Hx Pneumonia, Hx Tuberculosis Neurological Medical History: Denies: Hx Cerebrovascular Accident, Hx Migraine, Hx Seizures, Hx Parkinson's Disease Endocrine Medical History: Denies: Hx Diabetes Mellitus Type 1, Hx Diabetes Mellitus Type 2 Renal/ Medical History: Denies: Hx Peritoneal Dialysis GI Medical History: Denies: Hx Cirrhosis, Hx Hepatitis Musculoskeletal Medical History: Denies Hx Arthritis, Denies Hx Gout, Reports Hx Musculoskeletal Deformity - right hip avascular necrosis Skin Medical History: Denies Hx Eczema, Denies Hx Psoriasis Psychiatric Medical History: Reports: Hx Depression Infectious Medical History: Denies: Hx Hepatitis Past Surgical History: Reports: Hx Appendectomy, Hx Vascular Surgery - L port placement, Other - Port placement - Immunizations Immunizations up to date: Yes Hx Diphtheria, Pertussis, Tetanus Vaccination: No Hx Pneumococcal Vaccination: 02/20/11 Review of Systems - Review of Systems Notes: REVIEW OF SYSTEMS: CONSTITUTIONAL : Denies recent illness. Denies recent unintentional weight loss. Denies fever, chills, or sweats. EENT: Denies eye, ear, throat, or mouth pain, discharge, or symptoms. Denies nasal or sinus congestion. CARDIOVASCULAR: Denies chest pain. RESPIRATORY: Denies shortness of breath, cough, congestion, difficulty breathing, or wheezing. GASTROINTESTINAL: Denies nausea, vomiting, and diarrhea. Denies abdominal pain. Denies constipation. GENITOURINARY: Denies difficulty urinating, burning, blood in urine, urgency or frequency. MUSCULOSKELETAL: See HPI. SKIN: Denies rash, itchiness, or lesions HEMATOLOGIC : Denies easy bruising or bleeding. LYMPHATIC: Denies swollen, painful, enlarged glands. NEUROLOGICAL: Denies no numbness or tingling denies weakness. Denies headache. Denies altered mental status. Denies alteration in speech. PSYCHIATRIC: Denies stress, anxiety, alteration in sleep patterns, or depression. All other systems reviewed and negative. Physical Exam - Vital signs Vitals: Temp Pulse Resp BP Pulse Ox 98.3 F 63 18 156/91 H 94 09/30/19 01:18 09/30/19 01:18 09/30/19 01:18 09/30/19 01:18 09/30/19 01:18 - Notes Notes: PHYSICAL EXAMINATION: GENERAL: Appears well, healthy, well-nourished, no acute distress. HEAD: Normocephalic, atraumatic. EYES: PERRL, conjunctiva normal, all extraocular movements intact, sclera nonicteric ENT: Moist mucous membranes. NECK: Supple, no noticeable swelling, redness, rash. Normal range of motion. LUNGS: Equal breath sounds bilaterally and clear to auscultation. No wheezes rales or rhonchi. CARDIOVASCULAR: S1-S2, regular rate, regular rhythm. Radial pulses 2+, normal. ABDOMEN: Normoactive bowel sounds. Soft, nontender, no guarding, no rebound tenderness, and no masses palpated. EXTREMITIES: Normal strength and range of motion, no pitting or edema. No cyanosis. Tenderness to bilateral shoulder joints. NEUROLOGICAL: Moves all extremities upon command. Strength 5/5 in all extremities. PSYCH: Normal mood, normal affect. SKIN: Warm, dry. No rash, lesions, ulcerations noted. Normal skin turgor. Course - Re-evaluation Re-evalutation: 09/30/19 07:33 Hematology shows a stable hemoglobin of 9.4 and hematocrit of 27. Reticulocyte count is 10.73. This is better than his previous lab drawn yesterday. Chemistries are unremarkable. I spoke with Dr. Andre, hospitalist. He will see the patient. - Vital Signs Vital signs: Temp Pulse Resp BP Pulse Ox 98.3 F 63 15 150/99 H 100 09/30/19 01:29 09/30/19 01:18 09/30/19 07:01 09/30/19 07:00 09/30/19 07:01 - Laboratory Result Diagrams: 09/30/19 01:53 09/30/19 01:53 Laboratory results interpreted by me: 09/30/19 09/30/19 01:53 01:53 RBC 2.86 L Hgb 9.4 L Hct 27.0 L RDW 21.0 H Reticulocyte # 0.307 H Band Neutrophils % 1 L Retic Count (auto) 10.73 H Total Bilirubin 1.7 H Discharge - Discharge Clinical Impression: Sickle cell crisis Joint pain Qualifiers: Joint pain location: unspecified Qualified Code(s): M25.50 - Pain in unspecified joint Condition: Stable Disposition: ADMITTED INPATIENT Admitting Provider: Jes (Hospitalist) Unit Admitted: Medical Floor Referrals: BETH STAPLETON MD [Primary Care Provider] - Follow up as needed
[2019-09-30] MEDS ORDERED: PROMETHAZINE HCL INJ 25 MG/1 ML VIAL IV PRN (11:21)
[2019-09-30] MEDS ORDERED: MAG HYDROX/AL HYDROX/SIMETH SUSP 30 ML UDCUP PO PRN (11:21)
[2019-09-30] MEDS ORDERED: ACETAMINOPHEN 325 MG TABLET PO PRN (11:21)
[2019-09-30] MEDS ORDERED: MAGNESIUM HYDROXIDE SUSP 30 ML UDCUP PO PRN (11:21)
[2019-09-30] MEDS ORDERED: BISACODYL 5 MG TABEC PO PRN (11:33)
--- NOTE | 2019-09-30 11:41 | PDOC H&P ---
History of Present Illness Admission Date/PCP: 09/30/19 08:47 BETH STAPLETON MD Patient complains of: Sickle cell crisis History of Present Illness: MARISA GARBER is a 38 year old male who is well-known to the hospitalist service. He states that approximately 1 week ago he began to notice increased discomfort especially in his joints. The patella was involved and in fact the clavicles and muscle aches were the worst of the painful areas. In April he transferred to [facility] to assess for his respiratory status. He states there was no plasmapheresis. His hemoglobin is 9.4 with a recheck count of 10 and his total bilirubin is up at 1.7 but these are consistent with laboratory studies obtained on previous admissions. He will be given aggressive IV fluids as well as aggressive analgesia. Hopefully we can get him turned around quickly. He does report that he wants to get back home with his children. Past Medical History Cardiac Medical History: Denies: Atrial Fibrillation, Congestive Heart Failure, Coronary Artery Disease, Myocardial Infarction, Hypertension Pulmonary Medical History: Denies: Asthma, Bronchitis, Chronic Obstructive Pulmonary Disease (COPD), Pneumonia, Tuberculosis Neurological Medical History: Denies: Migraine, Seizures Endocrine Medical History: Denies: Diabetes Mellitus Type 1, Diabetes Mellitus Type 2 GI Medical History: Denies: Cirrhosis, Hepatitis Musculoskeltal Medical History: Denies: Arthritis, Gout Skin Medical History: Denies: Eczema, Psoriasis Psychiatric Medical History: Reports: Depression Hematology: Reports: Sickle Cell Disease Denies: Anemia, Hemophilia, Bleeding Tendencies Past Surgical History Past Surgical History: Reports: Appendectomy, Vascular Surgery - L port placement, Other - Port placement Social History Information Source: Patient, [facility] Records Lives with: Family Smoking Status: Former Smoker Electronic Cigarette use?: No Frequency of Alcohol Use: None Hx Recreational Drug Use: No Drugs: None Hx Prescription Drug Abuse: No - Advance Directive Resuscitation Status: Full Code Family History Family History: Reviewed & Not Pertinent, Hypertension, Other - Sepsis Parental Family History Reviewed: Yes Children Family History Reviewed: Yes Sibling(s) Family History Reviewed.: Yes Medication/Allergy Home Medications: Folic Acid [Folvite 1 mg Tablet] 1 mg PO DAILY 02/19/19 Hydroxyurea [Hydrea 500 mg Capsule] 1,500 mg PO DAILY 02/19/19 Oxycodone HCl [Oxy-Ir 5 mg Tablet] 10 mg PO Q4HP PRN 10/31/19 Allergies/Adverse Reactions: famotidine [From Pepcid] Allergy (Severe, Verified 09/30/19 01:29) Anaphylaxis ketorolac tromethamine [From Toradol] Allergy (Severe, Verified 09/30/19:29) levofloxacin [From Levaquin] Allergy (Severe, Verified 09/30/19 01:29) meperidine HCl [From Demerol] Allergy (Severe, Verified 09/30/19:29) morphine [Morphine] Allergy (Severe, Verified 09/30/19:29) tramadol HCl [From Ultram] Allergy (Severe, Verified 09/30/19:29) amoxicillin [Amoxicillin] Allergy (Verified 09/30/19:29) fentanyl [Fentanyl] Allergy (Verified 09/30/19:29) latex [Latex] Allergy (Verified 09/30/19:29) ondansetron HCl [From Zofran] Allergy (Verified 09/30/19:29) Pork/Porcine Containing Products Allergy (Verified 09/30/19:) promethazine Allergy (Verified 09/30/19:) Review of Systems All systems: reviewed and no additional remarkable complaints except as stated Constitutional: PRESENT: fatigue Musculoskeletal: PRESENT: muscle weakness, other - Joint pain and muscle aches Physical Exam Vital Signs: Temp Pulse Resp BP Pulse Ox 97.6 F 70 17 159/93 H 100 09/30/19 10:27 09/30/19 10:27 09/30/19 10:27 09/30/19 10:27 09/30/19 10:27 Intake & Output 09/29/19 09/30/19 10/01/19 06:59 06:59 06:59 Intake Total 1000 Balance 1000 Weight 88.1 kg 88.1 kg General appearance: PRESENT: cooperative, severe distress, well-developed Head exam: PRESENT: atraumatic, normocephalic Eye exam: PRESENT: conjunctiva pale, scleral icterus Ear exam: PRESENT: normal external ear exam. ABSENT: bleeding, drainage Mouth exam: PRESENT: other - Mask in place Respiratory exam: PRESENT: clear to auscultation anastasiya, symmetrical, unlabored. ABSENT: prolonged expiratory phas, rales, rhonchi, tachypnea, wheezes Cardiovascular exam: PRESENT: RRR, +S1, +S2, systolic murmur - 2/6. ABSENT: irregular rhythm GI/Abdominal exam: PRESENT: normal bowel sounds, soft. ABSENT: distended, guard ing, tenderness Rectal exam: PRESENT: deferred Gentrourinary exam: ABSENT: indwelling catheter Extremities exam: ABSENT: pedal edema Musculoskeletal exam: PRESENT: ambulatory, normal inspection Neurological exam: PRESENT: alert, awake, oriented to person, oriented to place, oriented to time, oriented to situation, CN II-XII grossly intact. ABSENT: altered, motor sensory deficit Psychiatric exam: PRESENT: flat affect. ABSENT: agitated, anxious Focused psych exam: ABSENT: delusional, paranoid, restlessness Skin exam: PRESENT: dry, normal color, warm. ABSENT: cyanosis, erythema, rash Results Laboratory Results: 09/30/19 01:53 09/30/19 01:53 09/30/19 09/30/19 01:53 01:53 WBC 7.5 RBC 2.86 L Hgb 9.4 L Hct 27.0 L MCV 95 MCH 32.9 MCHC 34.8 RDW 21.0 H Plt Count 412 Seg Neutrophils % Not Reportable Retic Count (auto) 10.73 H Sodium 138.5 Potassium 3.8 Chloride 104 Carbon Dioxide 28 Anion Gap 7 BUN 8 Creatinine 0.67 Est GFR ( Amer) > 60 Glucose 105 Calcium 8.7 Total Bilirubin 1.7 H AST 27 Alkaline Phosphatase 81 Total Protein 7.8 Albumin 4.1 Impressions: Shoulder X-Ray 09/30/19 01:32 IMPRESSION: No evidence of acute osseous injury involving either shoulder. No focal osseous abnormalities are identified. Assessment and Plan - Diagnosis (1) Sickle cell crisis Is this a current diagnosis for this admission?: Yes Plan: 09/30/2019 Aggressive IV fluids. Aggressive pain management. Monitor CBC. (2) Chronic pain Qualifiers: Chronic pain type: other chronic pain Qualified Code(s): G89.29 - Other chronic pain Is this a current diagnosis for this admission?: Yes Plan: IV Dilaudid and IV Benadryl. (3) Constipation Qualifiers: Constipation type: slow transit constipation Qualified Code(s): K59.01 - Slow transit constipation Is this a current diagnosis for this admission?: Yes Plan: 09/30/2019 Opioid-induced constipation. Continue MiraLAX senna plus as needed bisacodyl (4) Opiate dependence, continuous Is this a current diagnosis for this admission?: Yes Plan: 09/30/2019 Continue current regimen. Old medication list contains oxycodone and methadone but these are not on his newly reconciled list. - Time Time Spent with patient: 35 or more minutes Medications reviewed and adjusted accordingly: Yes Anticipated discharge: Home - Inpatient Certification Based on my medical assessment, after consideration of the patient's comorbidities, presenting symptoms, or acuity I expect that the services needed warrant INPATIENT care.: Yes I certify that my determination is in accordance with my understanding of Medicare's requirements for reasonable and necessary INPATIENT services [42 CFR 412.3e].: Yes Medical Necessity: Need For IV Fluids, Need for Pain Control Post Hospital Care: D/C Designer Architect Documentation
[2019-09-30] MEDS ORDERED: HYDROMORPHONE HCL INJ/PF 2 MG/ML AMPULE ONE (11:51)
[2019-09-30] MEDS ORDERED: DIPHENHYDRAMINE HCL 50 MG/ML VIAL ONE (11:53)
[2019-09-30] MEDS: HYDROMORPHONE HCL INJ/PF 2 MG/ML AMPULE IV PRN ×5 (12:01→22:09)
[2019-09-30] MEDS: DIPHENHYDRAMINE HCL 50 MG/ML VIAL IV PRN ×3 (12:02→22:10)
[2019-09-30] MEDS: POLYETHYLENE GLYCOL 3350 POWDER 17 GM/1 PACKET PO SCH (12:59)
[2019-09-30] MEDS: HYDROXYUREA 500 MG CAPSULE PO SCH (13:00)
[2019-09-30] MEDS: FOLIC ACID 1 MG TABLET PO SCH (13:01)
[2019-09-30] MEDS: RINGERS SOLUTION,LACTATED 1,000 ML IV PRN ×2 (15:25→22:10)
[2019-09-30] MEDS: SENNOSIDES/DOCUSATE 8.6-50 MG 1 EACH TABLET PO SCH (17:42)
[2019-10-01] MEDS: HYDROMORPHONE HCL INJ/PF 2 MG/ML AMPULE IV PRN ×11 (00:29→23:23)
[2019-10-01] MEDS: DIPHENHYDRAMINE HCL 50 MG/ML VIAL IV PRN ×5 (02:31→21:08)
[2019-10-01] MEDS: RINGERS SOLUTION,LACTATED 1,000 ML IV PRN ×4 (04:39→23:23)
[2019-10-01 05:26] LABS: HEMATOCRIT 28.3 % (37.9-51.0); HEMOGLOBIN 9.7 g/dL (13.5-17.0); MEAN CORPUSCULAR HEMOGLOBIN 32.4 pg (27.0-33.4); MEAN CORPUSCULAR HGB CONC 34.2 g/dL (32.0-36.0); MEAN CORPUSCULAR VOLUME 95 fl (80-97); PLATELET COUNT 395 10^3/uL (150-450); RED CELL DISTRIBUTION WIDTH 20.7 % (11.5-14.0); WHITE BLOOD COUNT 7.1 10^3/uL (4.0-10.5)
[2019-10-01 05:39] LABS: ANION GAP 7 (5-19); BLOOD UREA NITROGEN 8 mg/dL (7-20); CALCIUM 8.9 mg/dL (8.4-10.2); CARBON DIOXIDE 31 mmol/L (22-30); CHLORIDE 100 mmol/L (98-107); GLUCOSE 112 mg/dL (75-110); POTASSIUM 4.2 mmol/L (3.6-5.0)
[2019-10-01 05:58] LABS: ABSOLUTE LYMPHOCYTES# (MANUAL) 2.2 10^3/uL (0.5-4.7); ABSOLUTE MONOCYTES # (MANUAL) 0.7 10^3/uL (0.1-1.4); BASOPHILS % (MANUAL) 0 % (0-2); EOSINOPHILS % (MANUAL) 2 % (0-6); LYMPHOCYTES % (MANUAL) 28 % (13-45); MONOCYTES % (MANUAL) 10 % (3-13); NUCLEATED RED BLOOD CELLS 1 /100 WBC (0); SEGMENTED NEUTROPHILS % (MAN) 57 % (42-78); TOTAL CELLS COUNTED 100
[2019-10-01 05:59] LABS: OVALOCYTES SLIGHT; SICKLE RED CELLS 1+; TARGET CELLS SLIGHT; TOXIC VACUOLATION PRESENT
[2019-10-01 06:00] LABS: ANISOCYTOSIS 2+; PLATELET COMMENT ADEQUATE; POIKILOCYTOSIS 1+; POLYCHROMASIA 1+
--- NOTE | 2019-10-01 08:37 | PDOC CONSULTATION ---
Consultation Consult Date: 10/01/19 Attending physician:: MARITZA WILLIS Provider Consulted: BETH STAPLETON Consult reason:: Sickle cell disease with crisis History of Present Illness Admission Date/PCP: 09/30/19 08:47 BETH STAPLETON MD Patient complains of: Severe right foot pain, other pain related to crisis History of Present Illness: MARISA GARBER is a 38 year old male with pain crisis, well-known sickle cell disease, extreme right foot pain over the last 4 to 5 days, we try to treat as an outpatient with continuous daily IV hydration and pain medication but ultimately the pain got very severe over the last 24 hours, in the ER he did get x-ray as well as ultrasound of the leg both negative for fracture or clot, but pain continued and patient was admitted for pain crisis. Currently seems controlled on pain. We discussed that we would make sure his home medications are continued. Past Medical History Cardiac Medical History: Denies: Atrial Fibrillation, Congestive Heart Failure, Coronary Artery Disease, Myocardial Infarction, Hypertension Pulmonary Medical History: Denies: Asthma, Bronchitis, Chronic Obstructive Pulmonary Disease (COPD), Pneumonia, Tuberculosis Neurological Medical History: Denies: Migraine, Seizures Endocrine Medical History: Denies: Diabetes Mellitus Type 1, Diabetes Mellitus Type 2 GI Medical History: Denies: Cirrhosis, Hepatitis Musculoskeltal Medical History: Denies: Arthritis, Gout Skin Medical History: Denies: Eczema, Psoriasis Psychiatric Medical History: Reports: Depression Hematology: Reports: Sickle Cell Disease Denies: Anemia, Hemophilia, Bleeding Tendencies Past Surgical History Past Surgical History: Reports: Appendectomy, Vascular Surgery - L port placement, Other - Port placement Social History Information Source: Patient Lives with: Family Smoking Status: Former Smoker Cigarettes Packs Per Day: 0.5 Electronic Cigarette use?: No Cigars Per Day: 0 Pipes Per Day: 0 Number of Years Smokin Last Time Smoked: 04/22/1997 Frequency of Alcohol Use: None Hx Recreational Drug Use: No Drugs: None Hx Prescription Drug Abuse: No - Advance Directive Resuscitation Status: Full Code Family History Family History: Reviewed & Not Pertinent, Hypertension, Other - Sepsis Parental Family History Reviewed: Yes Children Family History Reviewed: Yes Sibling(s) Family History Reviewed.: Yes Medication/Allergy Home Medications: Folic Acid [Folvite 1 mg Tablet] 1 mg PO DAILY 02/19/19 Hydroxyurea [Hydrea 500 mg Capsule] 1,500 mg PO DAILY 02/19/19 Oxycodone HCl [Oxy-Ir 5 mg Tablet] 10 mg PO Q4HP PRN 02/19/19 Allergies/Adverse Reactions: famotidine [From Pepcid] Allergy (Severe, Verified 09/30/19:29) Anaphylaxis ketorolac tromethamine [From Toradol] Allergy (Severe, Verified 09/30/19:29) levofloxacin [From Levaquin] Allergy (Severe, Verified 09/30/19:29) meperidine HCl [From Demerol] Allergy (Severe, Verified 09/30/19:29) morphine [Morphine] Allergy (Severe, Verified 09/30/19:29) tramadol HCl [From Ultram] Allergy (Severe, Verified 09/30/19:29) amoxicillin [Amoxicillin] Allergy (Verified 09/30/19:29) fentanyl [Fentanyl] Allergy (Verified 09/30/19:29) latex [Latex] Allergy (Verified 09/30/19:29) ondansetron HCl [From Zofran] Allergy (Verified 09/30/19:29) Pork/Porcine Containing Products Allergy (Verified 09/30/19:29) promethazine Allergy (Verified 09/30/19:) Review of Systems Constitutional: ABSENT: chills, fever(s), headache(s), weight gain, weight loss Eyes: ABSENT: visual disturbances Ears: ABSENT: hearing changes Cardiovascular: ABSENT: chest pain, dyspnea on exertion, edema, orthropnea, palpitations Respiratory: ABSENT: cough, hemoptysis Gastrointestinal: ABSENT: abdominal pain, constipation, diarrhea, hematemesis, hematochezia, nausea, vomiting Genitourinary: ABSENT: dysuria, hematuria Musculoskeletal: ABSENT: joint swelling Integumentary: ABSENT: rash, wounds Neurological: ABSENT: abnormal gait, abnormal speech, confusion, dizziness, focal weakness, syncope Psychiatric: ABSENT: anxiety, depression, homidical ideation, suicidal ideation Endocrine: ABSENT: cold intolerance, heat intolerance, polydipsia, polyuria Hematologic/Lymphatic: ABSENT: easy bleeding, easy bruising Physical Exam Vital Signs: Temp Pulse Resp BP Pulse Ox 97.8 F 71 18 130/91 H 100 09/30/19 23:18 09/30/19 23:18 09/30/19 23:18 09/30/19 23:18 10/01/19 00:06 Intake & Output 09/30/19 10/01/19 10/02/19 06:59 06:59 06:59 Intake Total 1000 3490 Output Total 1800 Balance 1000 1690 Weight 88.1 kg 88.6 kg General appearance: PRESENT: no acute distress, well-developed, well-nourished Head exam: PRESENT: atraumatic, normocephalic Eye exam: PRESENT: conjunctiva pink, EOMI, PERRLA. ABSENT: scleral icterus Ear exam: PRESENT: normal external ear exam Mouth exam: PRESENT: moist, tongue midline Neck exam: ABSENT: carotid bruit, JVD, lymphadenopathy, thyromegaly Respiratory exam: PRESENT: clear to auscultation anastasiya. ABSENT: rales, rhonchi, wheezes Cardiovascular exam: PRESENT: RRR. ABSENT: diastolic murmur, rubs, systolic murmur Pulses: PRESENT: normal dorsalis pedis pul Vascular exam: PRESENT: normal capillary refill GI/Abdominal exam: PRESENT: normal bowel sounds, soft. ABSENT: distended, guarding, mass, organolmegaly, rebound, tenderness Rectal exam: PRESENT: deferred Extremities exam: PRESENT: full ROM. ABSENT: calf tenderness, clubbing, pedal edema Neurological exam: PRESENT: alert, awake, oriented to person, oriented to place, oriented to time, oriented to situation, CN II-XII grossly intact. ABSENT: motor sensory deficit Psychiatric exam: PRESENT: appropriate affect, normal mood. ABSENT: homicidal ideation, suicidal ideation Skin exam: PRESENT: dry, intact, warm. ABSENT: cyanosis, rash Results Laboratory Results: 10/01/19 04:50 10/01/19 04:50 10/01/19 10/01/19 04:50 04:50 WBC 7.1 RBC 3.00 L Hgb 9.7 L Hct 28.3 L MCV 95 MCH 32.4 MCHC 34.2 RDW 20.7 H Plt Count 395 Seg Neutrophils % Not Reportable Sodium 138.1 Potassium 4.2 Chloride 100 Carbon Dioxide 31 H Anion Gap 7 BUN 8 Creatinine 0.66 Est GFR ( Amer) > 60 Glucose 112 H Calcium 8.9 Magnesium 2.0 Impressions: Shoulder X-Ray 09/30/19 01:32 IMPRESSION: No evidence of acute osseous injury involving either shoulder. No focal osseous abnormalities are identified. Assessment & Plan - Diagnosis (1) Sickle cell crisis Is this a current diagnosis for this admission?: Yes Plan: Sickle cell pain crisis, continue with current pain medication, reviewed medications and we will add his home meds back on. Continue with current supportive care. 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 He does have multiple antibodies if needed transfusion may take a few days. But doubt he will needed it - Time Time Spent: Greater than 70 Minutes - Inpatient Certification Based on my medical assessment, after consideration of the patient's comorbidities, presenting symptoms, or acuity I expect that the services needed warrant INPATIENT care.: Yes I certify that my determination is in accordance with my understanding of Medicare's requirements for reasonable and necessary INPATIENT services [42 CFR 412.3e].: Yes Medical Necessity: Need For IV Fluids, Need for Pain Control
[2019-10-01] MEDS: DOCUSATE SODIUM 100 MG CAPSULE PO SCH (09:00)
[2019-10-01] MEDS: HYDROXYUREA 500 MG CAPSULE PO SCH (09:00)
[2019-10-01] MEDS: POLYETHYLENE GLYCOL 3350 POWDER 17 GM/1 PACKET PO SCH (09:00)
[2019-10-01] MEDS: FOLIC ACID 1 MG TABLET PO SCH (09:00)
[2019-10-01] MEDS: SENNOSIDES/DOCUSATE 8.6-50 MG 1 EACH TABLET PO SCH ×2 (09:01→18:48)
[2019-10-01] MEDS ORDERED: DOCUSATE SODIUM 100 MG CAPSULE PO SCH (10:00)
[2019-10-01] MEDS ORDERED: PSEUDOEPHEDRINE HCL 30 MG TABLET PO PRN (13:02)
[2019-10-01] MEDS ORDERED: BACLOFEN 10 MG TABLET PO PRN (13:02)
[2019-10-01] MEDS ORDERED: METHADONE HCL 10 MG TABLET PO PRN (13:03)
--- NOTE | 2019-10-01 15:04 | PDOC PROGRESS REPORT ---
Subjective Progress Note for:: 10/01/19 Subjective:: Patient is still having pain. He feels better than yesterday. His shoulders/clavicles are still the most uncomfortable. Hematology did add muscle relaxants. Reason For Visit: SICKLE CELL CRISIS,CHRONIC PAIN Physical Exam Vital Signs: Temp Pulse Resp BP Pulse Ox 97.4 F 82 17 130/85 H 96 10/01/19 12:00 10/01/19 12:00 10/01/19 12:00 10/01/19 12:00 10/01/19 12:00 Intake & Output 09/30/19 10/01/19 10/02/19 06:59 06:59 06:59 Intake Total 1000 3490 1000 Output Total 1800 Balance 1000 1690 1000 Weight 88.1 kg 88.6 kg General appearance: PRESENT: cooperative, mild distress - To moderate distress, well-developed Head exam: PRESENT: atraumatic, normocephalic Respiratory exam: PRESENT: clear to auscultation anastasiya, symmetrical, unlabored. ABSENT: rales, rhonchi, tachypnea, wheezes Cardiovascular exam: PRESENT: RRR, +S1, +S2, systolic murmur - 2/6 GI/Abdominal exam: PRESENT: normal bowel sounds, soft. ABSENT: distended, guarding, tenderness Musculoskeletal exam: PRESENT: other - Still very tender around the shoulders and clavicle areas.. ABSENT: full ROM - Range of motion is slightly decreased due to pain Neurological exam: PRESENT: alert, awake, oriented to person, oriented to place, oriented to time, oriented to situation, CN II-XII grossly intact Psychiatric exam: PRESENT: appropriate affect - Affect reflects his discomfort. ABSENT: agitated, anxious Results Laboratory Results: 10/01/19 04:50 10/01/19 04:50 10/01/19 10/01/19 04:50 04:50 WBC 7.1 RBC 3.00 L Hgb 9.7 L Hct 28.3 L MCV 95 MCH 32.4 MCHC 34.2 RDW 20.7 H Plt Count 395 Seg Neutrophils % Not Reportable Sodium 138.1 Potassium 4.2 Chloride 100 Carbon Dioxide 31 H Anion Gap 7 BUN 8 Creatinine 0.66 Est GFR ( Amer) > 60 Glucose 112 H Calcium 8.9 Magnesium 2.0 Impressions: Shoulder X-Ray 09/30/19 01:32 IMPRESSION: No evidence of acute osseous injury involving either shoulder. No focal osseous abnormalities are identified. Assessment and Plan - Diagnosis (1) Sickle cell crisis Is this a current diagnosis for this admission?: Yes Plan: 09/30/2019 Aggressive IV fluids. Aggressive pain management. Monitor CBC. 10/01/2019 Feeling better with IV fluids and aggressive pain management. He also remains on his hydroxyurea. He does want to get home to his daughters. Possibly discharge tomorrow. (2) Chronic pain Qualifiers: Chronic pain type: other chronic pain Qualified Code(s): G89.29 - Other chronic pain Is this a current diagnosis for this admission?: Yes Plan: IV Dilaudid and IV Benadryl. 10/01/2019 Continue current medication regimen including additions by hematology (3) Constipation Qualifiers: Constipation type: slow transit constipation Qualified Code(s): K59.01 - Slow transit constipation Is this a current diagnosis for this admission?: Yes Plan: 09/30/2019 Opioid-induced constipation. Continue MiraLAX senna plus as needed bisacodyl 10/01/2019 Continue current regimen. If constipation persists consider hematochezia (lubiprostone), Linzess or Relistor (4) Opiate dependence, continuous Is this a current diagnosis for this admission?: Yes Plan: 09/30/2019 Continue current regimen. Old medication list contains oxycodone and methadone but these are not on his newly reconciled list. 10/01/2019 Baclofen, methadone and Sudafed added by hematology. These are likely part of his home regimen that was not reconciled at admission. - Time Time Spent with patient: Less than 15 minutes Anticipated discharge: Home
[2019-10-02] MEDS: HYDROMORPHONE HCL INJ/PF 2 MG/ML AMPULE IV PRN ×10 (01:48→23:01)
[2019-10-02] MEDS: DIPHENHYDRAMINE HCL 50 MG/ML VIAL IV PRN ×5 (01:48→20:09)
[2019-10-02 04:38] LABS: HEMATOCRIT 25.4 % (37.9-51.0); HEMOGLOBIN 8.8 g/dL (13.5-17.0); MEAN CORPUSCULAR HEMOGLOBIN 32.3 pg (27.0-33.4); MEAN CORPUSCULAR HGB CONC 34.8 g/dL (32.0-36.0); MEAN CORPUSCULAR VOLUME 93 fl (80-97); PLATELET COUNT 349 10^3/uL (150-450); RED BLOOD COUNT 2.74 10^6/uL (4.35-5.55); RED CELL DISTRIBUTION WIDTH 20.9 % (11.5-14.0); WHITE BLOOD COUNT 6.7 10^3/uL (4.0-10.5)
[2019-10-02 04:51] LABS: BLOOD UREA NITROGEN 8 mg/dL (7-20); GLUCOSE 98 mg/dL (75-110); POTASSIUM 4.4 mmol/L (3.6-5.0)
[2019-10-02 04:57] LABS: CARBON DIOXIDE 35 mmol/L (22-30); CHLORIDE 100 mmol/L (98-107)
[2019-10-02 05:00] LABS: ABSOLUTE LYMPHOCYTES# (MANUAL) 2.4 10^3/uL (0.5-4.7); ABSOLUTE MONOCYTES # (MANUAL) 0.6 10^3/uL (0.1-1.4); ANION GAP 3 (5-19); BAND NEUTROPHILS % (MANUAL) 1 % (3-5); BASOPHILS % (MANUAL) 1 % (0-2); EOSINOPHILS % (MANUAL) 2 % (0-6); LYMPHOCYTES % (MANUAL) 34 % (13-45); MONOCYTES % (MANUAL) 9 % (3-13); NUCLEATED RED BLOOD CELLS 2 /100 WBC (0); SEGMENTED NEUTROPHILS % (MAN) 51 % (42-78); TOTAL CELLS COUNTED 100
[2019-10-02 05:02] LABS: ANISOCYTOSIS 2+; SICKLE RED CELLS 2+
[2019-10-02 05:04] LABS: PLATELET COMMENT ADEQUATE; PLATELET LARGE PRESENT; TARGET CELLS 1+; TOXIC GRANULATION SLIGHT
[2019-10-02 05:05] LABS: POIKILOCYTOSIS 1+; POLYCHROMASIA 1+
[2019-10-02] MEDS: RINGERS SOLUTION,LACTATED 1,000 ML IV PRN ×3 (05:50→17:22)
--- NOTE | 2019-10-02 07:59 | PDOC PROGRESS REPORT ---
Subjective Progress Note for:: 10/02/19 Subjective:: Patient seems to be stable with pain, feeling a little bit better, no new complaints Reason For Visit: SICKLE CELL CRISIS,CHRONIC PAIN Physical Exam Vital Signs: Temp Pulse Resp BP Pulse Ox 98.6 F 81 16 152/79 H 100 10/02/19 00:00 10/02/19 00:00 10/02/19 00:00 10/02/19 00:00 10/02/19 06:07 Intake & Output 10/01/19 10/02/19 10/03/19 06:59 06:59 06:59 Intake Total 3490 5680 Output Total 1800 4600 Balance 1690 1080 Weight 88.6 kg 88.9 kg General appearance: PRESENT: no acute distress, well-developed, well-nourished Head exam: PRESENT: atraumatic, normocephalic Eye exam: PRESENT: conjunctiva pink, EOMI, PERRLA. ABSENT: scleral icterus Ear exam: PRESENT: normal external ear exam Mouth exam: PRESENT: moist, tongue midline Neck exam: ABSENT: carotid bruit, JVD, lymphadenopathy, thyromegaly Respiratory exam: PRESENT: clear to auscultation anastasiya. ABSENT: rales, rhonchi, wheezes Cardiovascular exam: PRESENT: RRR. ABSENT: diastolic murmur, rubs, systolic murmur Pulses: PRESENT: normal dorsalis pedis pul Vascular exam: PRESENT: normal capillary refill GI/Abdominal exam: PRESENT: normal bowel sounds, soft. ABSENT: distended, guarding, mass, organolmegaly, rebound, tenderness Rectal exam: PRESENT: deferred Extremities exam: PRESENT: full ROM. ABSENT: calf tenderness, clubbing, pedal edema Neurological exam: PRESENT: alert, awake, oriented to person, oriented to place, oriented to time, oriented to situation, CN II-XII grossly intact. ABSENT: motor sensory deficit Psychiatric exam: PRESENT: appropriate affect, normal mood. ABSENT: homicidal ideation, suicidal ideation Skin exam: PRESENT: dry, intact, warm. ABSENT: cyanosis, rash Results Laboratory Results: 10/02/19 04:15 10/02/19 04:15 10/02/19 10/02/19 04:15 04:15 WBC 6.7 RBC 2.74 L Hgb 8.8 L Hct 25.4 L MCV 93 MCH 32.3 MCHC 34.8 RDW 20.9 H Plt Count 349 Seg Neutrophils % Not Reportable Sodium 138.4 Potassium 4.4 Chloride 100 Carbon Dioxide 35 H Anion Gap 3 L BUN 8 Creatinine 0.62 Est GFR ( Amer) > 60 Glucose 98 Calcium 9.0 Magnesium 1.9 Impressions: Shoulder X-Ray 09/30/19 01:32 IMPRESSION: No evidence of acute osseous injury involving either shoulder. No focal osseous abnormalities are identified. 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
--- NOTE | 2019-10-02 09:18 | PDOC PROGRESS REPORT ---
Subjective Progress Note for:: 10/02/19 Subjective:: The patient reports having a bad day yesterday. He was actually feeling better when I saw him in the afternoon. He is on a video chat with his . Reason For Visit: SICKLE CELL CRISIS,CHRONIC PAIN Physical Exam Vital Signs: Temp Pulse Resp BP Pulse Ox 98.1 F 84 16 134/90 H 91 L 10/02/19 07:43 10/02/19 07:43 10/02/19 07:43 10/02/19 07:43 10/02/19 07:43 Intake & Output 10/01/19 10/02/19 10/03/19 06:59 06:59 06:59 Intake Total 3490 5680 Output Total 1800 4600 Balance 1690 1080 Weight 88.6 kg 88.9 kg General appearance: PRESENT: cooperative, mild distress, well-developed Head exam: PRESENT: atraumatic, normocephalic Respiratory exam: PRESENT: clear to auscultation anastasiya, symmetrical, unlabored. ABSENT: rales, rhonchi, tachypnea, wheezes Cardiovascular exam: PRESENT: RRR, +S1, +S2, systolic murmur - 2/6 GI/Abdominal exam: PRESENT: normal bowel sounds, soft. ABSENT: distended, guarding, tenderness Musculoskeletal exam: PRESENT: ambulatory Neurological exam: PRESENT: alert, awake, oriented to person, oriented to place, oriented to time, oriented to situation, CN II-XII grossly intact. ABSENT: altered Psychiatric exam: PRESENT: appropriate affect. ABSENT: agitated, anxious Results Laboratory Results: 10/02/19 04:15 10/02/19 04:15 10/02/19 10/02/19 04:15 04:15 WBC 6.7 RBC 2.74 L Hgb 8.8 L Hct 25.4 L MCV 93 MCH 32.3 MCHC 34.8 RDW 20.9 H Plt Count 349 Seg Neutrophils % Not Reportable Sodium 138.4 Potassium 4.4 Chloride 100 Carbon Dioxide 35 H Anion Gap 3 L BUN 8 Creatinine 0.62 Est GFR ( Amer) > 60 Glucose 98 Calcium 9.0 Magnesium 1.9 Impressions: Shoulder X-Ray 09/30/19 01:32 IMPRESSION: No evidence of acute osseous injury involving either shoulder. No focal osseous abnormalities are identified. Assessment and Plan - Diagnosis (1) Sickle cell crisis Is this a current diagnosis for this admission?: Yes Plan: 09/30/2019 Aggressive IV fluids. Aggressive pain management. Monitor CBC. 10/01/2019 Feeling better with IV fluids and aggressive pain management. He also remains on his hydroxyurea. He does want to get home to his daughters. Possibly discharge tomorrow. 10/02/2019 Still complaining of pain. We will continue IV fluids. We will continue hydroxyurea and current pain management regimen. The patient's bill cutter is helping with pain management as well. I will recheck reticulocyte count tomorrow. (2) Chronic pain Qualifiers: Chronic pain type: other chronic pain Qualified Code(s): G89.29 - Other chronic pain Is this a current diagnosis for this admission?: Yes Plan: IV Dilaudid and IV Benadryl. 10/01/2019 Continue current medication regimen including additions by hematology 10/02/2019 No changes at this time (3) Constipation Qualifiers: Constipation type: slow transit constipation Qualified Code(s): K59.01 - Slow transit constipation Is this a current diagnosis for this admission?: Yes Plan: 09/30/2019 Opioid-induced constipation. Continue MiraLAX senna plus as needed bisacodyl 10/01/2019 Continue current regimen. If constipation persists consider hematochezia (lubiprostone), Linzess or Relistor 10/02/2019 No bowel movement documented yet. I will start a trial of lubiprostone. (4) Opiate dependence, continuous Is this a current diagnosis for this admission?: Yes Plan: 09/30/2019 Continue current regimen. Old medication list contains oxycodone and methadone but these are not on his newly reconciled list. 10/01/2019 Baclofen, methadone and Sudafed added by hematology. These are likely part of his home regimen that was not reconciled at admission. 10/02/2019 Continued use of opiates for pain management - Time Time Spent with patient: Less than 15 minutes Medications reviewed and adjusted accordingly: Yes Anticipated discharge: Home
[2019-10-02] MEDS: DOCUSATE SODIUM 100 MG CAPSULE PO SCH (10:07)
[2019-10-02] MEDS: HYDROXYUREA 500 MG CAPSULE PO SCH (10:07)
[2019-10-02] MEDS: SENNOSIDES/DOCUSATE 8.6-50 MG 1 EACH TABLET PO SCH ×2 (10:07→17:21)
[2019-10-02] MEDS: FOLIC ACID 1 MG TABLET PO SCH (10:07)
[2019-10-02] MEDS: POLYETHYLENE GLYCOL 3350 POWDER 17 GM/1 PACKET PO SCH (10:15)
[2019-10-02] MEDS: ACETAZOLAMIDE 250 MG TABLET PO SCH ×3 (10:19→21:33)
--- NOTE | 2019-10-02 12:59 | RADIOLOGY REPORT (SQ) ---
EXAM DESCRIPTION: CHEST SINGLE VIEW IMAGES COMPLETED DATE/TIME: 10/02/2019 11:21 am REASON FOR STUDY: Clavicle/muscle pain. COMPARISON: 09/23/2019. EXAM PARAMETERS: NUMBER OF VIEWS: One view. TECHNIQUE: Single frontal radiographic view of the chest acquired. RADIATION DOSE: NA LIMITATIONS: None. FINDINGS: LUNGS AND PLEURA: Scattered parenchymal densities in the lung bases. Possible small effus ions. MEDIASTINUM AND HILAR STRUCTURES: No masses. Contour normal. HEART AND VASCULAR STRUCTURES: Stable cardiomegaly. BONES: No acute findings. HARDWARE: Vascular port. OTHER: No other significant finding. IMPRESSION: NO CHANGE IN APPEARANCE OF THE CHEST. TECHNICAL DOCUMENTATION: JOB ID: [id number] 2010 [employer]- All Rights Reserved Reading location - IP/workstation name: [email or web address]
[2019-10-03] MEDS: DIPHENHYDRAMINE HCL 50 MG/ML VIAL IV PRN ×6 (01:02→23:16)
[2019-10-03] MEDS: HYDROMORPHONE HCL INJ/PF 2 MG/ML AMPULE IV PRN ×11 (01:03→23:17)
[2019-10-03] MEDS: RINGERS SOLUTION,LACTATED 1,000 ML IV PRN ×4 (01:04→19:57)
[2019-10-03 07:24] LABS: ABSOLUTE RETICS # 0.269 10^6/uL (0.028-0.122); HEMOGLOBIN 8.5 g/dL (13.5-17.0); MEAN CORPUSCULAR HEMOGLOBIN 32.6 pg (27.0-33.4); MEAN CORPUSCULAR HGB CONC 35.3 g/dL (32.0-36.0); MEAN CORPUSCULAR VOLUME 93 fl (80-97); PLATELET COUNT 337 10^3/uL (150-450); RED BLOOD COUNT 2.59 10^6/uL (4.35-5.55); RETICULOCYTE COUNT (AUTO) 10.39 % (0.66-2.85); WHITE BLOOD COUNT 8.2 10^3/uL (4.0-10.5)
[2019-10-03 07:41] LABS: ANION GAP 5 (5-19); BLOOD UREA NITROGEN 7 mg/dL (7-20); CALCIUM 8.9 mg/dL (8.4-10.2); CARBON DIOXIDE 34 mmol/L (22-30); CHLORIDE 98 mmol/L (98-107); GLUCOSE 103 mg/dL (75-110); POTASSIUM 4.5 mmol/L (3.6-5.0)
[2019-10-03 07:47] LABS: ABSOLUTE LYMPHOCYTES# (MANUAL) 2.4 10^3/uL (0.5-4.7); ANISOCYTOSIS 3+; BASOPHILS % (MANUAL) 0 % (0-2); EOSINOPHILS % (MANUAL) 0 % (0-6); LYMPHOCYTES % (MANUAL) 29 % (13-45); MONOCYTES % (MANUAL) 12 % (3-13); OVALOCYTES 1+; PLATELET COMMENT ADEQUATE; POIKILOCYTOSIS 1+; POLYCHROMASIA SLIGHT; SEGMENTED NEUTROPHILS % (MAN) 59 % (42-78); SICKLE RED CELLS SLIGHT; TARGET CELLS SLIGHT; TOTAL CELLS COUNTED 100
[2019-10-03 07:48] LABS: PLATELET LARGE PRESENT
--- NOTE | 2019-10-03 09:22 | PDOC PROGRESS REPORT ---
Subjective Progress Note for:: 10/03/19 Subjective:: Reports that he feels better but when asked if he wanted to go home he said he thinks he may need another day. If this changes he will have the nurses call me. He also wondered if Dr. Medellin is in today and I told him that he would be by to see him. Based on his previous admissions it is very doubtful that he will decide to go home on his own. Reason For Visit: SICKLE CELL CRISIS,CHRONIC PAIN Physical Exam Vital Signs: Temp Pulse Resp BP Pulse Ox 98.2 F 88 16 134/77 H 92 10/03/19 07:50 10/03/19 07:50 10/03/19 07:50 10/03/19 07:50 10/03/19 08:29 Intake & Output 10/02/19 10/03/19 10/04/19 06:59 06:59 06:59 Intake Total 5680 4803 Output Total 4600 4600 Balance 1080 203 Weight 88.9 kg 88.9 kg General appearance: PRESENT: cooperative, mild distress, well-developed Head exam: PRESENT: atraumatic, normocephalic Respiratory exam: PRESENT: clear to auscultation anastasiya, symmetrical, unlabored. ABSENT: prolonged expiratory phas, rales, rhonchi, tachypnea, wheezes Cardiovascular exam: PRESENT: RRR, +S1, +S2, systolic murmur - 2/6 GI/Abdominal exam: PRESENT: normal bowel sounds, soft. ABSENT: distended, guarding, tenderness Rectal exam: PRESENT: deferred Neurological exam: PRESENT: alert, awake, oriented to person, oriented to place, oriented to time, oriented to situation, CN II-XII grossly intact Psychiatric exam: PRESENT: unusual affect - Presenting affect is that of severe pain, other - Tenderness over the right clavicular area more so than the left. He reports pain in the right hip and right leg as well.. ABSENT: agitated, anxious Focused psych exam: ABSENT: delusional, paranoid, restlessness Skin exam: PRESENT: dry, normal color, warm Results Laboratory Results: 10/03/19 06:50 10/03/19 06:50 10/03/19 10/03/19 06:50 06:50 WBC 8.2 RBC 2.59 L Hgb 8.5 L Hct 24.0 L MCV 93 MCH 32.6 MCHC 35.3 RDW 21.0 H Plt Count 337 Seg Neutrophils % Not Reportable Retic Count (auto) 10.39 H Sodium 137.2 Potassium 4.5 Chloride 98 Carbon Dioxide 34 H Anion Gap 5 BUN 7 Creatinine 0.58 Est GFR ( Amer) > 60 Glucose 103 Calcium 8.9 Magnesium 1.9 Impressions: Shoulder X-Ray 09/30/19 01:32 IMPRESSION: No evidence of acute osseous injury involving either shoulder. No focal osseous abnormalities are identified. Chest X-Ray 10/02/19 00:00 IMPRESSION: NO CHANGE IN APPEARANCE OF THE CHEST. Assessment and Plan - Diagnosis (1) Sickle cell crisis Is this a current diagnosis for this admission?: Yes Plan: 09/30/2019 Aggressive IV fluids. Aggressive pain management. Monitor CBC. 10/01/2019 Feeling better with IV fluids and aggressive pain management. He also remains on his hydroxyurea. He does want to get home to his daughters. Possibly discharge tomorrow. 10/02/2019 Still complaining of pain. We will continue IV fluids. We will continue hydroxyurea and current pain management regimen. The patient's director of contracts is helping with pain management as well. I will recheck reticulocyte count tomorrow. 10/03/2019 Continue aggressive IV fluids. Reticulocyte count is no different than admission. Continue to monitor laboratory studies. Continue supportive care and pain management. (2) Chronic pain Qualifiers: Chronic pain type: other chronic pain Qualified Code(s): G89.29 - Other chronic pain Is this a current diagnosis for this admission?: Yes Plan: IV Dilaudid and IV Benadryl. 10/01/2019 Continue current medication regimen including additions by hematology 10/02/2019 No changes at this time 10/03/2019 As above (3) Constipation Qualifiers: Constipation type: slow transit constipation Qualified Code(s): K59.01 - Slow transit constipation Is this a current diagnosis for this admission?: Yes Plan: 09/30/2019 Opioid-induced constipation. Continue MiraLAX senna plus as needed bisacodyl 10/01/2019 Continue current regimen. If constipation persists consider hematochezia (lubiprostone), Linzess or Relistor 10/02/2019 No bowel movement documented yet. I will start a trial of lubiprostone. (4) Opiate dependence, continuous Is this a current diagnosis for this admission?: Yes Plan: 09/30/2019 Continue current regimen. Old medication list contains oxycodone and methadone but these are not on his newly reconciled list. 10/01/2019 Baclofen, methadone and Sudafed added by hematology. These are likely part of his home regimen that was not reconciled at admission. 10/02/2019 Continued use of opiates for pain management 10/03/2019 Will add lubiprostone for opiate-induced constipation - Time Time Spent with patient: 15-24 minutes Medications reviewed and adjusted accordingly: Yes Anticipated discharge: Home
[2019-10-03] MEDS: ACETAZOLAMIDE 250 MG TABLET PO SCH ×2 (09:33→21:06)
[2019-10-03] MEDS: DOCUSATE SODIUM 100 MG CAPSULE PO SCH (09:33)
[2019-10-03] MEDS: SENNOSIDES/DOCUSATE 8.6-50 MG 1 EACH TABLET PO SCH ×2 (09:33→17:29)
[2019-10-03] MEDS: HYDROXYUREA 500 MG CAPSULE PO SCH (09:33)
[2019-10-03] MEDS: FOLIC ACID 1 MG TABLET PO SCH (09:33)
[2019-10-03] MEDS: POLYETHYLENE GLYCOL 3350 POWDER 17 GM/1 PACKET PO SCH (09:36)
--- NOTE | 2019-10-03 09:56 | PDOC PROGRESS REPORT ---
Subjective Progress Note for:: 10/03/19 Subjective:: Patient seems to be doing a little bit better. No new complaints. Reason For Visit: SICKLE CELL CRISIS,CHRONIC PAIN Physical Exam Vital Signs: Temp Pulse Resp BP Pulse Ox 98.2 F 88 16 134/77 H 92 10/03/19 07:50 10/03/19 07:50 10/03/19 07:50 10/03/19 07:50 10/03/19 08:29 Intake & Output 10/02/19 10/03/19 10/04/19 06:59 06:59 06:59 Intake Total 5680 4803 Output Total 4600 4600 Balance 1080 203 Weight 88.9 kg 88.9 kg General appearance: PRESENT: no acute distress, well-developed, well-nourished Head exam: PRESENT: atraumatic, normocephalic Eye exam: PRESENT: conjunctiva pink, EOMI, PERRLA. ABSENT: scleral icterus Ear exam: PRESENT: normal external ear exam Mouth exam: PRESENT: moist, tongue midline Neck exam: ABSENT: carotid bruit, JVD, lymphadenopathy, thyromegaly Respiratory exam: PRESENT: clear to auscultation anastasiya. ABSENT: rales, rhonchi, wheezes Cardiovascular exam: PRESENT: RRR. ABSENT: diastolic murmur, rubs, systolic murmur Pulses: PRESENT: normal dorsalis pedis pul Vascular exam: PRESENT: normal capillary refill GI/Abdominal exam: PRESENT: normal bowel sounds, soft. ABSENT: distended, guarding, mass, organolmegaly, rebound, tenderness Rectal exam: PRESENT: deferred Extremities exam: PRESENT: full ROM. ABSENT: calf tenderness, clubbing, pedal edema Neurological exam: PRESENT: alert, awake, oriented to person, oriented to place, oriented to time, oriented to situation, CN II-XII grossly intact. ABSENT: motor sensory deficit Psychiatric exam: PRESENT: appropriate affect, normal mood. ABSENT: homicidal ideation, suicidal ideation Skin exam: PRESENT: dry, intact, warm. ABSENT: cyanosis, rash Results Laboratory Results: 10/03/19 06:50 10/03/19 06:50 10/03/19 10/03/19 06:50 06:50 WBC 8.2 RBC 2.59 L Hgb 8.5 L Hct 24.0 L MCV 93 MCH 32.6 MCHC 35.3 RDW 21.0 H Plt Count 337 Seg Neutrophils % Not Reportable Retic Count (auto) 10.39 H Sodium 137.2 Potassium 4.5 Chloride 98 Carbon Dioxide 34 H Anion Gap 5 BUN 7 Creatinine 0.58 Est GFR ( Amer) > 60 Glucose 103 Calcium 8.9 Magnesium 1.9 Impressions: Shoulder X-Ray 09/30/19 01:32 IMPRESSION: No evidence of acute osseous injury involving either shoulder. No focal osseous abnormalities are identified. Chest X-Ray 10/02/19 00:00 IMPRESSION: NO CHANGE IN APPEARANCE OF THE CHEST. 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
[2019-10-03] MEDS: LUBIPROSTONE 24 MCG CAPSULE PO SCH (21:06)
[2019-10-04] MEDS: RINGERS SOLUTION,LACTATED 1,000 ML IV PRN ×4 (01:40→19:03)
[2019-10-04] MEDS: HYDROMORPHONE HCL INJ/PF 2 MG/ML AMPULE IV PRN ×11 (02:02→23:42)
[2019-10-04] MEDS: DIPHENHYDRAMINE HCL 50 MG/ML VIAL IV PRN ×5 (04:10→21:49)
[2019-10-04] MEDS: POLYETHYLENE GLYCOL 3350 POWDER 17 GM/1 PACKET PO SCH (10:17)
[2019-10-04] MEDS: LUBIPROSTONE 24 MCG CAPSULE PO SCH ×2 (10:18→21:51)
[2019-10-04] MEDS: DOCUSATE SODIUM 100 MG CAPSULE PO SCH (10:19)
[2019-10-04] MEDS: FOLIC ACID 1 MG TABLET PO SCH (10:19)
[2019-10-04] MEDS: SENNOSIDES/DOCUSATE 8.6-50 MG 1 EACH TABLET PO SCH ×2 (10:19→17:31)
[2019-10-04] MEDS: HYDROXYUREA 500 MG CAPSULE PO SCH (10:25)
[2019-10-04] MEDS: ACETAZOLAMIDE 250 MG TABLET PO SCH ×2 (10:26→21:52)
--- NOTE | 2019-10-04 11:48 | PDOC PROGRESS REPORT ---
Subjective Progress Note for:: 10/04/19 Subjective:: Still complaining of pain. Prolonged discussion about complications of sickle cell disease and reversibility versus irreversibility. Reason For Visit: SICKLE CELL CRISIS,CHRONIC PAIN Physical Exam Vital Signs: Temp Pulse Resp BP Pulse Ox 97.5 F 87 16 139/86 H 92 10/04/19 08:00 10/04/19 08:00 10/04/19 08:00 10/04/19 08:00 10/04/19 08:00 Intake & Output 10/03/19 10/04/19 10/05/19 06:59 06:59 06:59 Intake Total 4803 4644 1000 Output Total 4600 1000 Balance 203 3644 1000 Weight 88.9 kg 92 kg General appearance: PRESENT: cooperative, well-developed Head exam: PRESENT: atraumatic, normocephalic Respiratory exam: PRESENT: chest wall tenderness - On the right, clear to auscultation anastasiya, symmetrical, unlabored, other - Faint rub on the right. ABSENT: rales, rhonchi, tachypnea, wheezes Cardiovascular exam: PRESENT: RRR, +S1, +S2, systolic murmur GI/Abdominal exam: PRESENT: normal bowel sounds, soft, tenderness. ABSENT: distended, guarding Rectal exam: PRESENT: deferred Extremities exam: PRESENT: other - Tender over the right clavicle shoulder area. Neurological exam: PRESENT: alert, awake, oriented to person, oriented to place, oriented to time, oriented to situation, CN II-XII grossly intact Psychiatric exam: PRESENT: unusual affect - When reviewing the common complications of sickle cell disease the patient exhibited a shock expression. For the length of time he has had this disease, from the complications that have been documented as well it is hard to believe that this information shocked him.. ABSENT: agitated, anxious Results Laboratory Results: 10/03/19 06:50 10/03/19 06:50 Impressions: Shoulder X-Ray 09/30/19 01:32 IMPRESSION: No evidence of acute osseous injury involving either shoulder. No focal osseous abnormalities are identified. Chest X-Ray 10/02/19 00:00 IMPRESSION: NO CHANGE IN APPEARANCE OF THE CHEST. Assessment and Plan - Diagnosis (1) Sickle cell crisis Is this a current diagnosis for this admission?: Yes Plan: 09/30/2019 Aggressive IV fluids. Aggressive pain management. Monitor CBC. 10/01/2019 Feeling better with IV fluids and aggressive pain management. He also remains on his hydroxyurea. He does want to get home to his daughters. Possibly discharge tomorrow. 10/02/2019 Still complaining of pain. We will continue IV fluids. We will continue hydroxyurea and current pain management regimen. The patient's cafe lead is helping with pain management as well. I will recheck reticulocyte count tomorrow. 10/03/2019 Continue aggressive IV fluids. Reticulocyte count is no different than admission. Continue to monitor laboratory studies. Continue supportive care and pain management. 10/04/2019 Fluids and pain management (2) Chronic pain Qualifiers: Chronic pain type: other chronic pain Qualified Code(s): G89.29 - Other chronic pain Is this a current diagnosis for this admission?: Yes Plan: IV Dilaudid and IV Benadryl. 10/01/2019 Continue current medication regimen including additions by hematology 10/02/2019 No changes at this time 10/03/2019 As above 10/04/2019 Researched the use of nonsteroidal anti-inflammatories but benefits were limited to none. No change in medication at this time. (3) Constipation Qualifiers: Constipation type: slow transit constipation Qualified Code(s): K59.01 - Slow transit constipation Is this a current diagnosis for this admission?: Yes Plan: 09/30/2019 Opioid-induced constipation. Continue MiraLAX senna plus as needed bisacodyl 10/01/2019 Continue current regimen. If constipation persists consider hematochezia (lubiprostone), Linzess or Relistor 10/02/2019 No bowel movement documented yet. I will start a trial of lubiprostone. 10/04/2019 We will order citrate of magnesium (4) Opiate dependence, continuous Is this a current diagnosis for this admission?: Yes Plan: 09/30/2019 Continue current regimen. Old medication list contains oxycodone and methadone but these are not on his newly reconciled list. 10/01/2019 Baclofen, methadone and Sudafed added by hematology. These are likely part of his home regimen that was not reconciled at admission. 10/02/2019 Continued use of opiates for pain management 10/03/2019 Will add lubiprostone for opiate-induced constipation (5) Pleuritic chest pain Is this a current diagnosis for this admission?: Yes Plan: 10/04/2019 I believe there was a faint rub on the right. The patient describes a pleuritic chest pain. Review of the literature did not suggest any benefit to anti- inflammatory use and the patient is allergic to Toradol. Continue current management. - Time Time Spent with patient: 15-24 minutes Medications reviewed and adjusted accordingly: Yes Anticipated discharge: Home
[2019-10-04] MEDS ORDERED: MAGNESIUM CITRATE 296 ML BOTTLE PO ONE (20:00)
[2019-10-05] MEDS: RINGERS SOLUTION,LACTATED 1,000 ML IV PRN ×3 (00:16→14:08)
[2019-10-05] MEDS: HYDROMORPHONE HCL INJ/PF 2 MG/ML AMPULE IV PRN ×10 (01:49→22:09)
[2019-10-05] MEDS: DIPHENHYDRAMINE HCL 50 MG/ML VIAL IV PRN ×5 (01:49→20:03)
--- NOTE | 2019-10-05 08:01 | PDOC PROGRESS REPORT ---
Subjective Progress Note for:: 10/05/19 Subjective:: Having some dry throat but on exam no redness/thrush/exudate. Otherwise, drinking more IVF so will dec his IVF rate Reason For Visit: SICKLE CELL CRISIS,CHRONIC PAIN Physical Exam Vital Signs: Temp Pulse Resp BP Pulse Ox 98.4 F 89 16 140/88 H 94 10/05/19 00:00 10/05/19 00:00 10/05/19 00:00 10/05/19 00:00 10/05/19 00:00 Intake & Output 10/04/19 10/05/19 10/06/19 06:59 06:59 06:59 Intake Total 4644 6704 Output Total 1000 6700 Balance 3644 4 Weight 92 kg 92.1 kg General appearance: PRESENT: no acute distress, well-developed, well-nourished Head exam: PRESENT: atraumatic, normocephalic Eye exam: PRESENT: conjunctiva pink, EOMI, PERRLA. ABSENT: scleral icterus Ear exam: PRESENT: normal external ear exam Mouth exam: PRESENT: moist, tongue midline Neck exam: ABSENT: carotid bruit, JVD, lymphadenopathy, thyromegaly Respiratory exam: PRESENT: clear to auscultation anastasiya. ABSENT: rales, rhonchi, wheezes Cardiovascular exam: PRESENT: RRR. ABSENT: diastolic murmur, rubs, systolic murmur Pulses: PRESENT: normal dorsalis pedis pul Vascular exam: PRESENT: normal capillary refill GI/Abdominal exam: PRESENT: normal bowel sounds, soft. ABSENT: distended, guarding, mass, organolmegaly, rebound, tenderness Rectal exam: PRESENT: deferred Extremities exam: PRESENT: full ROM. ABSENT: calf tenderness, clubbing, pedal edema Neurological exam: PRESENT: alert, awake, oriented to person, oriented to place, oriented to time, oriented to situation, CN II-XII grossly intact. ABSENT: motor sensory deficit Psychiatric exam: PRESENT: appropriate affect, normal mood. ABSENT: homicidal ideation, suicidal ideation Skin exam: PRESENT: dry, intact, warm. ABSENT: cyanosis, rash Results Laboratory Results: 10/03/19 06:50 10/03/19 06:50 Impressions: Shoulder X-Ray 09/30/19 01:32 IMPRESSION: No evidence of acute osseous injury involving either shoulder. No focal osseous abnormalities are identified. Chest X-Ray 10/02/19 00:00 IMPRESSION: NO CHANGE IN APPEARANCE OF THE CHEST. Assessment & Plan - Diagnosis (1) Sickle cell crisis Is this a current diagnosis for this admission?: Yes Plan: Cont current pain dose, we will see by tomorrow if weening possible, just getting back on his feet. 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
[2019-10-05] MEDS: POLYETHYLENE GLYCOL 3350 POWDER 17 GM/1 PACKET PO SCH (10:05)
[2019-10-05] MEDS: LUBIPROSTONE 24 MCG CAPSULE PO SCH ×2 (10:08→22:08)
[2019-10-05] MEDS: HYDROXYUREA 500 MG CAPSULE PO SCH (10:08)
[2019-10-05] MEDS: ACETAZOLAMIDE 250 MG TABLET PO SCH ×2 (10:08→22:09)
[2019-10-05] MEDS: FOLIC ACID 1 MG TABLET PO SCH (10:09)
[2019-10-05] MEDS: SENNOSIDES/DOCUSATE 8.6-50 MG 1 EACH TABLET PO SCH ×2 (10:09→17:56)
[2019-10-05] MEDS: DOCUSATE SODIUM 100 MG CAPSULE PO SCH (10:09)
--- NOTE | 2019-10-05 10:51 | PDOC PROGRESS REPORT ---
Subjective Progress Note for:: 10/05/19 Subjective:: The patient is still complaining of his pain. He is actually laying on his right side today. His throat is sore today. Reason For Visit: SICKLE CELL CRISIS,CHRONIC PAIN Physical Exam Vital Signs: Temp Pulse Resp BP Pulse Ox 98.0 F 83 17 132/77 H 92 10/05/19 08:00 10/05/19 08:00 10/05/19 08:00 10/05/19 08:00 10/05/19 08:00 Intake & Output 10/04/19 10/05/19 10/06/19 06:59 06:59 06:59 Intake Total 4644 6704 Output Total 1000 6700 Balance 3644 4 Weight 92 kg 92.1 kg General appearance: PRESENT: cooperative, mild distress, well-developed Head exam: PRESENT: atraumatic, normocephalic Respiratory exam: PRESENT: clear to auscultation anastasiya, symmetrical, unlabored. ABSENT: rales, rhonchi, tachypnea, wheezes Cardiovascular exam: PRESENT: RRR, +S1, +S2. ABSENT: diastolic murmur, irregular rhythm, systolic murmur GI/Abdominal exam: PRESENT: normal bowel sounds, soft. ABSENT: distended, guarding, tenderness Rectal exam: PRESENT: deferred Neurological exam: PRESENT: alert, awake, oriented to person, oriented to place, oriented to time, oriented to situation, CN II-XII grossly intact. ABSENT: altered Psychiatric exam: PRESENT: appropriate affect - Affect reflects his discomfort. ABSENT: agitated, anxious Results Laboratory Results: 10/03/19 06:50 10/03/19 06:50 Impressions: Shoulder X-Ray 09/30/19 01:32 IMPRESSION: No evidence of acute osseous injury involving either shoulder. No focal osseous abnormalities are identified. Chest X-Ray 10/02/19 00:00 IMPRESSION: NO CHANGE IN APPEARANCE OF THE CHEST. Assessment and Plan - Diagnosis (1) Sickle cell crisis Is this a current diagnosis for this admission?: Yes Plan: 09/30/2019 Aggressive IV fluids. Aggressive pain management. Monitor CBC. 10/01/2019 Feeling better with IV fluids and aggressive pain management. He also remains on his hydroxyurea. He does want to get home to his daughters. Possibly discharge tomorrow. 10/02/2019 Still complaining of pain. We will continue IV fluids. We will continue hydroxyurea and current pain management regimen. The patient's gold leaf printer is helping with pain management as well. I will recheck reticulocyte count tomorrow. 10/03/2019 Continue aggressive IV fluids. Reticulocyte count is no different than admi ssion. Continue to monitor laboratory studies. Continue supportive care and pain management. 10/04/2019 Fluids and pain management 10/05/2019 Continue current regimen (2) Chronic pain Qualifiers: Chronic pain type: other chronic pain Qualified Code(s): G89.29 - Other chronic pain Is this a current diagnosis for this admission?: Yes Plan: IV Dilaudid and IV Benadryl. 10/01/2019 Continue current medication regimen including additions by hematology 10/02/2019 No changes at this time 10/03/2019 As above 10/04/2019 Researched the use of nonsteroidal anti-inflammatories but benefits were limited to none. No change in medication at this time. 10/05/2019 Continue current regimen (3) Constipation Qualifiers: Constipation type: slow transit constipation Qualified Code(s): K59.01 - Slow transit constipation Is this a current diagnosis for this admission?: Yes Plan: 09/30/2019 Opioid-induced constipation. Continue MiraLAX senna plus as needed bisacodyl 10/01/2019 Continue current regimen. If constipation persists consider hematochezia (lubiprostone), Linzess or Relistor 10/02/2019 No bowel movement documented yet. I will start a trial of lubiprostone. 10/04/2019 We will order citrate of magnesium 10/05/2019 Currently on lubiprostone with mag citrate available twice daily if needed (4) Opiate dependence, continuous Is this a current diagnosis for this admission?: Yes Plan: 09/30/2019 Continue current regimen. Old medication list contains oxycodone and methadone but these are not on his newly reconciled list. 10/01/2019 Baclofen, methadone and Sudafed added by hematology. These are likely part of his home regimen that was not reconciled at admission. 10/02/2019 Continued use of opiates for pain management 10/03/2019 Will add lubiprostone for opiate-induced constipation. 10/05/2019 No bowel movement documented at this time. Continue current regimen for pain. (5) Pleuritic chest pain Is this a current diagnosis for this admission?: Yes Plan: 10/04/2019 I believe there was a faint rub on the right. The patient describes a pleuritic chest pain. Review of the literature did not suggest any benefit to anti- inflammatory use and the patient is allergic to Toradol. Continue current management. 10/05/2019 Pain not as pronounced today. Review of literature revealed that anti- inflammatories are not particularly effective. We will continue current regimen. (6) Pharyngitis Qualifiers: Pharyngitis/tonsillitis etiology: unspecified etiology Qualified Code(s): J02.9 - Acute pharyngitis, unspecified Is this a current diagnosis for this admission?: Yes Plan: 10/05/2019 Rapid strep ordered. Chloraseptic ordered. - Time Time Spent with patient: Less than 15 minutes Medications reviewed and adjusted accordingly: Yes Anticipated discharge: Home Within: within 48 hours
[2019-10-05] MEDS ORDERED: PHENOL/SODIUM PHENOLATE 100 SPRAY/177 ML BOTTLE PO PRN (10:52)
[2019-10-06] MEDS: DIPHENHYDRAMINE HCL 50 MG/ML VIAL IV PRN ×6 (00:08→21:16)
[2019-10-06] MEDS: HYDROMORPHONE HCL INJ/PF 2 MG/ML AMPULE IV PRN ×12 (00:09→23:21)
[2019-10-06] MEDS: RINGERS SOLUTION,LACTATED 1,000 ML IV PRN ×2 (00:13→20:51)
[2019-10-06] MEDS: IBUPROFEN 800 MG TABLET PO PRN (08:23)
--- NOTE | 2019-10-06 08:27 | PDOC PROGRESS REPORT ---
Subjective Progress Note for:: 10/06/19 Subjective:: Patient states he is feeling better than on admission. He does not wish to make any changes today. Reason For Visit: SICKLE CELL CRISIS,CHRONIC PAIN Physical Exam Vital Signs: Temp Pulse Resp BP Pulse Ox 98.1 F 83 16 126/87 H 100 10/05/19 23:56 10/05/19 23:56 10/05/19 23:56 10/05/19 23:56 10/06/19 04:58 Intake & Output 10/05/19 10/06/19 10/07/19 06:59 06:59 06:59 Intake Total 6704 4300 Output Total 6700 3880 Balance 4 420 Weight 92.1 kg 92.4 kg General appearance: PRESENT: no acute distress Head exam: PRESENT: normocephalic Respiratory exam: PRESENT: unlabored Musculoskeletal exam: PRESENT: normal inspection Neurological exam: PRESENT: alert, awake Psychiatric exam: PRESENT: appropriate affect Skin exam: PRESENT: normal color Results Laboratory Results: 10/03/19 06:50 10/03/19 06:50 Impressions: Shoulder X-Ray 09/30/19 01:32 IMPRESSION: No evidence of acute osseous injury involving either shoulder. No focal osseous abnormalities are identified. Chest X-Ray 10/02/19 00:00 IMPRESSION: NO CHANGE IN APPEARANCE OF THE CHEST. Assessment & Plan - Diagnosis (1) Sickle cell pain crisis Is this a current diagnosis for this admission?: Yes Plan: Continue current treatments. Will repeat labs in AM. I encouraged him to walk in hallway. - Time Time Spent with patient: Less than 15 minutes
[2019-10-06] MEDS: DOCUSATE SODIUM 100 MG CAPSULE PO SCH (10:30)
[2019-10-06] MEDS: LUBIPROSTONE 24 MCG CAPSULE PO SCH ×2 (10:30→21:34)
[2019-10-06] MEDS: SENNOSIDES/DOCUSATE 8.6-50 MG 1 EACH TABLET PO SCH ×2 (10:30→17:44)
[2019-10-06] MEDS: FOLIC ACID 1 MG TABLET PO SCH (10:31)
[2019-10-06] MEDS: POLYETHYLENE GLYCOL 3350 POWDER 17 GM/1 PACKET PO SCH (10:31)
[2019-10-06] MEDS: ACETAZOLAMIDE 250 MG TABLET PO SCH ×2 (10:35→21:55)
[2019-10-06] MEDS: HYDROXYUREA 500 MG CAPSULE PO SCH (10:35)
--- NOTE | 2019-10-06 11:30 | PDOC PROGRESS REPORT ---
Subjective Progress Note for:: 10/06/19 Subjective:: 38 year old male who is well-known to the hospitalist service. He states that approximately 1 week ago he began to notice increased discomfort especially in his joints. The patella was involved and in fact the clavicles and muscle aches were the worst of the painful areas. In April he transferred to [facility] to assess for his respiratory status. He states there was no plasmapheresis. His hemoglobin is 9.4 with a recheck count of 10 and his total bilirubin is up at 1.7 but these are consistent with laboratory studies obtained on previous admissions. He will be given aggressive IV fluids as well as aggressive analgesia. Hopefully we can get him turned around quickly. He does report that he wants to get back home with his children. 10/06/2019-no acute events the last 24 hours. As per the patient pain is under control. Oncology on board. Reason For Visit: SICKLE CELL CRISIS,CHRONIC PAIN Physical Exam Vital Signs: Temp Pulse Resp BP Pulse Ox 98.0 F 81 16 122/83 94 10/06/19 08:00 10/06/19 08:00 10/06/19 08:00 10/06/19 08:00 10/06/19 08:00 Intake & Output 10/05/19 10/06/19 10/07/19 06:59 06:59 06:59 Intake Total 6704 4300 Output Total 6700 3880 Balance 4 420 Weight 92.1 kg 92.4 kg General appearance: PRESENT: no acute distress, well-developed Head exam: PRESENT: atraumatic Eye exam: PRESENT: PERRLA Mouth exam: PRESENT: moist, tongue midline Teeth exam: PRESENT: poor dentation Neck exam: ABSENT: carotid bruit, JVD, lymphadenopathy, thyromegaly Respiratory exam: PRESENT: decreased breath sounds Cardiovascular exam: PRESENT: RRR. ABSENT: diastolic murmur, rubs, systolic murmur GI/Abdominal exam: PRESENT: normal bowel sounds, soft. ABSENT: distended, g uarding, mass, organolmegaly, rebound, tenderness Rectal exam: PRESENT: deferred Neurological exam: PRESENT: alert, awake, oriented to person, oriented to place, oriented to time, oriented to situation, CN II-XII grossly intact. ABSENT: motor sensory deficit Psychiatric exam: PRESENT: appropriate affect, normal mood. ABSENT: homicidal ideation, suicidal ideation Skin exam: PRESENT: dry, intact, warm. ABSENT: cyanosis, rash Results Laboratory Results: 10/03/19 06:50 10/03/19 06:50 Impressions: Shoulder X-Ray 09/30/19 01:32 IMPRESSION: No evidence of acute osseous injury involving either shoulder. No focal osseous abnormalities are identified. Chest X-Ray 10/02/19 00:00 IMPRESSION: NO CHANGE IN APPEARANCE OF THE CHEST. Assessment and Plan - Diagnosis (1) Sickle cell crisis Is this a current diagnosis for this admission?: Yes Plan: 09/30/2019 Aggressive IV fluids. Aggressive pain management. Monitor CBC. 10/01/2019 Feeling better with IV fluids and aggressive pain management. He also remains on his hydroxyurea. He does want to get home to his daughters. Possibly discharge tomorrow. 10/02/2019 Still complaining of pain. We will continue IV fluids. We will continue hydrox yurea and current pain management regimen. The patient's neurological surgeon is helping with pain management as well. I will recheck reticulocyte count tomorrow. 10/03/2019 Continue aggressive IV fluids. Reticulocyte count is no different than admission. Continue to monitor laboratory studies. Continue supportive care and pain management. 10/04/2019 Fluids and pain management 10/05/2019 Continue current regimen 10/06/2019-continue the present management as recommended by heme-onc. (2) Chronic pain Qualifiers: Chronic pain type: other chronic pain Qualified Code(s): G89.29 - Other chronic pain Is this a current diagnosis for this admission?: Yes Plan: IV Dilaudid and IV Benadryl. 10/01/2019 Continue current medication regimen including additions by hematology 10/02/2019 No changes at this time 10/03/2019 As above 10/04/2019 Researched the use of nonsteroidal anti-inflammatories but benefits were limited to none. No change in medication at this time. 10/05/2019 Continue current regimen (3) Constipation Qualifiers: Constipation type: slow transit constipation Qualified Code(s): K59.01 - Slow transit constipation Is this a current diagnosis for this admission?: Yes Plan: 09/30/2019 Opioid-induced constipation. Continue MiraLAX senna plus as needed bisacodyl 10/01/2019 Continue current regimen. If constipation persists consider hematochezia (lubiprostone), Linzess or Relistor 10/02/2019 No bowel movement documented yet. I will start a trial of lubiprostone. 10/04/2019 We will order citrate of magnesium 10/05/2019 Currently on lubiprostone with mag citrate available twice daily if needed (4) Opiate dependence, continuous Is this a current diagnosis for this admission?: Yes Plan: 09/30/2019 Continue current regimen. Old medication list contains oxycodone and methadone but these are not on his newly reconciled list. 10/01/2019 Baclofen, methadone and Sudafed added by hematology. These are likely part of his home regimen that was not reconciled at admission. 10/02/2019 Continued use of opiates for pain management 10/03/2019 Will add lubiprostone for opiate-induced constipation. 10/05/2019 No bowel movement documented at this time. Continue current regimen for pain.
[2019-10-07] MEDS: DIPHENHYDRAMINE HCL 50 MG/ML VIAL IV PRN ×6 (01:30→23:38)
[2019-10-07] MEDS: HYDROMORPHONE HCL INJ/PF 2 MG/ML AMPULE IV PRN ×11 (01:30→23:37)
[2019-10-07 06:43] LABS: HEMATOCRIT 22.4 % (37.9-51.0); MEAN CORPUSCULAR HEMOGLOBIN 32.8 pg (27.0-33.4); MEAN CORPUSCULAR HGB CONC 35.5 g/dL (32.0-36.0); MEAN CORPUSCULAR VOLUME 92 fl (80-97); PLATELET COUNT 305 10^3/uL (150-450); RED BLOOD COUNT 2.43 10^6/uL (4.35-5.55); RED CELL DISTRIBUTION WIDTH 23.3 % (11.5-14.0); WHITE BLOOD COUNT 7.7 10^3/uL (4.0-10.5)
[2019-10-07 06:57] LABS: ALBUMIN 3.8 g/dL (3.5-5.0); ALKALINE PHOSPHATASE 118 U/L (38-126); ANION GAP 5 (5-19); ASPARTATE AMINO TRANSFERASE 66 U/L (17-59); BILIRUBIN,DIRECT 0.2 mg/dL (0.0-0.4); BLOOD UREA NITROGEN 8 mg/dL (7-20); CALCIUM 8.9 mg/dL (8.4-10.2); CARBON DIOXIDE 31 mmol/L (22-30); CHLORIDE 102 mmol/L (98-107); GLUCOSE 113 mg/dL (75-110); POTASSIUM 4.5 mmol/L (3.6-5.0); TOTAL PROTEIN 7.4 g/dL (6.3-8.2)
[2019-10-07 07:32] LABS: ABSOLUTE LYMPHOCYTES# (MANUAL) 2.8 10^3/uL (0.5-4.7); ABSOLUTE MONOCYTES # (MANUAL) 0.5 10^3/uL (0.1-1.4); BAND NEUTROPHILS % (MANUAL) 1 % (3-5); BASOPHILS % (MANUAL) 1 % (0-2); EOSINOPHILS % (MANUAL) 5 % (0-6); LYMPHOCYTES % (MANUAL) 37 % (13-45); MONOCYTES % (MANUAL) 7 % (3-13); SEGMENTED NEUTROPHILS % (MAN) 49 % (42-78); TOTAL CELLS COUNTED 100
[2019-10-07 07:33] LABS: ANISOCYTOSIS 3+
[2019-10-07 07:34] LABS: POLYCHROMASIA 2+
[2019-10-07 07:35] LABS: POIKILOCYTOSIS 2+
[2019-10-07 07:36] LABS: OVALOCYTES 2+; SICKLE RED CELLS 1+
[2019-10-07 07:38] LABS: PLATELET COMMENT ADEQUATE; PLATELET LARGE PRESENT
[2019-10-07 07:39] LABS: HYPOCHROMASIA SLIGHT; TARGET CELLS SLIGHT
[2019-10-07 07:40] LABS: SCHISTOCYTES SLIGHT; TEAR DROP CELLS SLIGHT
[2019-10-07 07:43] LABS: NUCLEATED RED BLOOD CELLS 10 /100 WBC (0)
[2019-10-07] MEDS: RINGERS SOLUTION,LACTATED 1,000 ML IV PRN ×2 (07:58→18:00)
--- NOTE | 2019-10-07 07:59 | PDOC PROGRESS REPORT ---
Subjective Progress Note for:: 10/07/19 Subjective:: Pt doing a bit better, new redness R eye concerning for conjunctivitis. Reason For Visit: SICKLE CELL CRISIS,CHRONIC PAIN Physical Exam Vital Signs: Temp Pulse Resp BP Pulse Ox 98.3 F 80 16 134/81 H 91 L 10/06/19 22:59 10/06/19 22:59 10/06/19 22:59 10/06/19 22:59 10/06/19 22:59 Intake & Output 10/06/19 10/07/19 10/08/19 06:59 06:59 06:59 Intake Total 4300 2100 Output Total 3880 3160 Balance 420 -1060 Weight 92.4 kg 92.6 kg General appearance: PRESENT: no acute distress, well-developed, well-nourished Head exam: PRESENT: atraumatic, normocephalic Eye exam: PRESENT: conjunctiva pink, EOMI, PERRLA. ABSENT: scleral icterus Ear exam: PRESENT: normal external ear exam Mouth exam: PRESENT: moist, tongue midline Neck exam: ABSENT: carotid bruit, JVD, lymphadenopathy, thyromegaly Respiratory exam: PRESENT: clear to auscultation anastasiya. ABSENT: rales, rhonchi, wheezes Cardiovascular exam: PRESENT: RRR. ABSENT: diastolic murmur, rubs, systolic murmur Pulses: PRESENT: normal dorsalis pedis pul Vascular exam: PRESENT: normal capillary refill GI/Abdominal exam: PRESENT: normal bowel sounds, soft. ABSENT: distended, guarding, mass, organolmegaly, rebound, tenderness Rectal exam: PRESENT: deferred Extremities exam: PRESENT: full ROM. ABSENT: calf tenderness, clubbing, pedal edema Neurological exam: PRESENT: alert, awake, oriented to person, oriented to place, oriented to time, oriented to situation, CN II-XII grossly intact. ABSENT: motor sensory deficit Psychiatric exam: PRESENT: appropriate affect, normal mood. ABSENT: homicidal ideation, suicidal ideation Skin exam: PRESENT: dry, intact, warm. ABSENT: cyanosis, rash Results Laboratory Results: 10/07/19 06:00 10/07/19 06:00 10/07/19 10/07/19 06:00 06:00 WBC 7.7 RBC 2.43 L Hgb 8.0 L Hct 22.4 L MCV 92 MCH 32.8 MCHC 35.5 RDW 23.3 H Plt Count 305 Seg Neutrophils % Not Reportable Sodium 138.0 Potassium 4.5 Chloride 102 Carbon Dioxide 31 H Anion Gap 5 BUN 8 Creatinine 0.61 Est GFR ( Amer) > 60 Glucose 113 H Calcium 8.9 Total Bilirubin 2.0 H AST 66 H Alkaline Phosphatase 118 Total Protein 7.4 Albumin 3.8 Impressions: Shoulder X-Ray 09/30/19 01:32 IMPRESSION: No evidence of acute osseous injury involving either shoulder. No focal osseous abnormalities are identified. Chest X-Ray 10/02/19 00:00 IMPRESSION: NO CHANGE IN APPEARANCE OF THE CHEST. Assessment & Plan - Diagnosis (1) Sickle cell crisis Is this a current diagnosis for this admission?: Yes Plan: Hb stable, still w considerable pain, cont current regimen for 24 more hours prior to weening. 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
[2019-10-07] MEDS: FOLIC ACID 1 MG TABLET PO SCH (10:06)
[2019-10-07] MEDS: SENNOSIDES/DOCUSATE 8.6-50 MG 1 EACH TABLET PO SCH ×3 (10:06→18:04)
[2019-10-07] MEDS: DOCUSATE SODIUM 100 MG CAPSULE PO SCH (10:06)
[2019-10-07] MEDS: TOBRAMYCIN SULFATE/DEXAMETH OPH SUSP 2.5 ML OD SCH ×4 (10:06→21:11)
[2019-10-07] MEDS: POLYETHYLENE GLYCOL 3350 POWDER 17 GM/1 PACKET PO SCH ×2 (10:06→10:17)
[2019-10-07] MEDS: LUBIPROSTONE 24 MCG CAPSULE PO SCH ×2 (10:06→21:08)
[2019-10-07] MEDS: HYDROXYUREA 500 MG CAPSULE PO SCH (10:10)
[2019-10-07] MEDS: ACETAZOLAMIDE 250 MG TABLET PO SCH ×2 (10:11→21:10)
[2019-10-07 10:14] LABS: PATH REVIEW PATHOLOGIST REVIEWED
--- NOTE | 2019-10-07 12:14 | PDOC PROGRESS REPORT ---
Subjective Progress Note for:: 10/07/19 Subjective:: 38 year old male who is well-known to the hospitalist service. He states that approximately 1 week ago he began to notice increased discomfort especially in his joints. The patella was involved and in fact the clavicles and muscle aches were the worst of the painful areas. In April he transferred to [facility] to assess for his respiratory status. He states there was no plasmapheresis. His hemoglobin is 9.4 with a recheck count of 10 and his total bilirubin is up at 1.7 but these are consistent with laboratory studies obtained on previous admissions. He will be given aggressive IV fluids as well as aggressive analgesia. Hopefully we can get him turned around quickly. He does report that he wants to get back home with his children. 10/06/2019-no acute events the last 24 hours. As per the patient pain is under control. Oncology on board. 10/07/19-patient is comfortable in the bed communicating well. No complaints. Dr. Ansari on board. Reason For Visit: SICKLE CELL CRISIS,CHRONIC PAIN Physical Exam Vital Signs: Temp Pulse Resp BP Pulse Ox 98.3 F 74 12 129/73 H 100 10/07/19 08:00 10/07/19 08:00 10/07/19 08:00 10/07/19 08:00 10/07/19 08:00 Intake & Output 10/06/19 10/07/19 10/08/19 06:59 06:59 06:59 Intake Total 4300 3100 Output Total 3880 3160 Balance 420 -60 Weight 92.4 kg 92.6 kg General appearance: PRESENT: no acute distress, well-developed Head exam: PRESENT: atraumatic Eye exam: PRESENT: PERRLA Mouth exam: PRESENT: moist, tongue midline Neck exam: ABSENT: carotid bruit, JVD, lymphadenopathy, thyromegaly Respiratory exam: PRESENT: decreased breath sounds Cardiovascular exam: PRESENT: RRR. ABSENT: diastolic murmur, rubs, systolic murmur Pulses: PRESENT: normal dorsalis pedis pul GI/Abdominal exam: PRESENT: normal bowel sounds, soft. ABSENT: distended, guarding, mass, organolmegaly, rebound, tenderness Rectal exam: PRESENT: deferred Extremities exam: PRESENT: full ROM. ABSENT: calf tenderness, clubbing, pedal edema Neurological exam: PRESENT: alert, awake, oriented to person, oriented to place, oriented to time, oriented to situation, CN II-XII grossly intact. ABSENT: motor sensory deficit Psychiatric exam: PRESENT: appropriate affect, normal mood. ABSENT: homicidal ideation, suicidal ideation Skin exam: PRESENT: dry, intact, warm. ABSENT: cyanosis, rash Results Laboratory Results: 10/07/19 06:00 10/07/19 06:00 10/07/19 10/07/19 06:00 06:00 WBC 7.7 RBC 2.43 L Hgb 8.0 L Hct 22.4 L MCV 92 MCH 32.8 MCHC 35.5 RDW 23.3 H Plt Count 305 Seg Neutrophils % Not Reportable Sodium 138.0 Potassium 4.5 Chloride 102 Carbon Dioxide 31 H Anion Gap 5 BUN 8 Creatinine 0.61 Est GFR ( Amer) > 60 Glucose 113 H Calcium 8.9 Total Bilirubin 2.0 H AST 66 H Alkaline Phosphatase 118 Total Protein 7.4 Albumin 3.8 Impressions: Shoulder X-Ray 09/30/19 01:32 IMPRESSION: No evidence of acute osseous injury involving either shoulder. No focal osseous abnormalities are identified. Chest X-Ray 10/02/19 00:00 IMPRESSION: NO CHANGE IN APPEARANCE OF THE CHEST. Assessment and Plan - Diagnosis (1) Sickle cell crisis Is this a current diagnosis for this admission?: Yes Plan: 09/30/2019 Aggressive IV fluids. Aggressive pain management. Monitor CBC. 10/01/2019 Feeling better with IV fluids and aggressive pain management. He also remains on his hydroxyurea. He does want to get home to his daughters. Possibly discharge tomorrow. 10/02/2019 Still complaining of pain. We will continue IV fluids. We will continue hydroxyurea and current pain management regimen. 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 I will recheck reticulocyte count tomorr ow. 10/03/2019 Continue aggressive IV fluids. Reticulocyte count is no different than admission. Continue to monitor laboratory studies. Continue supportive care and pain management. 10/04/2019 Fluids and pain management 10/05/2019 Continue current regimen 10/06/2019-continue the present management as recommended by heme-onc. 10/06/2017-no complaints of pain this morning. Comfortably in the bed communicating well. Pain management as per oncology team. (2) Chronic pain Qualifiers: Chronic pain type: other chronic pain Qualified Code(s): G89.29 - Other chronic pain Is this a current diagnosis for this admission?: Yes Plan: IV Dilaudid and IV Benadryl. 10/01/2019 Continue current medication regimen including additions by hematology 10/02/2019 No changes at this time 10/03/2019 As above 10/04/2019 Researched the use of nonsteroidal anti-inflammatories but benefits were limited to none. No change in medication at this time. 10/05/2019 Continue current regimen (3) Constipation Qualifiers: Constipation type: slow transit constipation Qualified Code(s): K59.01 - Slow transit constipation Is this a current diagnosis for this admission?: Yes Plan: 09/30/2019 Opioid-induced constipation. Continue MiraLAX senna plus as needed bisacodyl 10/01/2019 Continue current regimen. If constipation persists consider hematochezia (lubiprostone), Linzess or Relistor 10/02/2019 No bowel movement documented yet. I will start a trial of lubiprostone. 10/04/2019 We will order citrate of magnesium 10/05/2019 Currently on lubiprostone with mag citrate available twice daily if needed (4) Opiate dependence, continuous Is this a current diagnosis for this admission?: Yes Plan: 09/30/2019 Continue current regimen. Old medication list contains oxycodone and methadone but these are not on his newly reconciled list. 10/01/2019 Baclofen, methadone and Sudafed added by hematology. These are likely part of his home regimen that was not reconciled at admission. 10/02/2019 Continued use of opiates for pain management 10/03/2019 Will add lubiprostone for opiate-induced constipation. 10/05/2019 No bowel movement documented at this time. Continue current regimen for pain.
[2019-10-08] MEDS: HYDROMORPHONE HCL INJ/PF 2 MG/ML AMPULE IV PRN ×9 (01:55→21:54)
[2019-10-08] MEDS: RINGERS SOLUTION,LACTATED 1,000 ML IV PRN ×2 (04:38→14:36)
[2019-10-08] MEDS: DIPHENHYDRAMINE HCL 50 MG/ML VIAL IV PRN ×4 (04:40→19:23)
--- NOTE | 2019-10-08 08:35 | PDOC PROGRESS REPORT ---
Subjective Progress Note for:: 10/08/19 Subjective:: Patient states that he is feeling much better today. Pain is improving. He is eating and drinking well. ROS: No dyspnea or constipation. Reason For Visit: SICKLE CELL CRISIS,CHRONIC PAIN Physical Exam Vital Signs: Temp Pulse Resp BP Pulse Ox 98.7 F 94 18 139/86 H 92 10/08/19 01:56 10/08/19 01:56 10/08/19 01:56 10/08/19 01:56 10/08/19 01:56 Intake & Output 10/07/19 10/08/19 10/09/19 06:59 06:59 06:59 Intake Total 3100 2496 Output Total 3160 2700 Balance -60 -204 Weight 92.6 kg 90.2 kg General appearance: PRESENT: no acute distress, well-developed, well-nourished Head exam: PRESENT: normocephalic Eye exam: PRESENT: EOMI Respiratory exam: PRESENT: unlabored Extremities exam: ABSENT: pedal edema Musculoskeletal exam: PRESENT: normal inspection Neurological exam: PRESENT: alert, awake, oriented to person, oriented to place, oriented to time, oriented to situation Psychiatric exam: PRESENT: appropriate affect Skin exam: PRESENT: normal color Results Laboratory Results: 10/07/19 06:00 10/07/19 06:00 10/05/19 15:25 Throat Throat Culture - Final REDUCED NORMAL KAMRON Impressions: Shoulder X-Ray 09/30/19 01:32 IMPRESSION: No evidence of acute osseous injury involving either shoulder. No focal osseous abnormalities are identified. Chest X-Ray 10/02/19 00:00 IMPRESSION: NO CHANGE IN APPEARANCE OF THE CHEST. Assessment & Plan - Diagnosis (1) Sickle cell pain crisis Is this a current diagnosis for this admission?: Yes Plan: I will decrease his PRN narcotics and start weaning. If he is doing well, may discharge later today or tomorrow. Patient was discussed with primary hospitalist as well. - Time Time Spent with patient: Less than 15 minutes
[2019-10-08] MEDS: FOLIC ACID 1 MG TABLET PO SCH (10:04)
[2019-10-08] MEDS: LUBIPROSTONE 24 MCG CAPSULE PO SCH ×2 (10:04→21:47)
[2019-10-08] MEDS: DOCUSATE SODIUM 100 MG CAPSULE PO SCH (10:04)
[2019-10-08] MEDS: HYDROXYUREA 500 MG CAPSULE PO SCH (10:04)
[2019-10-08] MEDS: ACETAZOLAMIDE 250 MG TABLET PO SCH ×2 (10:04→21:47)
[2019-10-08] MEDS: POLYETHYLENE GLYCOL 3350 POWDER 17 GM/1 PACKET PO SCH (10:08)
[2019-10-08] MEDS: TOBRAMYCIN SULFATE/DEXAMETH OPH SUSP 2.5 ML OD SCH ×4 (10:08→21:47)
[2019-10-08] MEDS: SENNOSIDES/DOCUSATE 8.6-50 MG 1 EACH TABLET PO SCH ×2 (10:08→18:21)
--- NOTE | 2019-10-08 12:28 | PDOC PROGRESS REPORT ---
Subjective Progress Note for:: 10/08/19 Subjective:: 38 year old male who is well-known to the hospitalist service. He states that approximately 1 week ago he began to notice increased discomfort especially in his joints. The patella was involved and in fact the clavicles and muscle aches were the worst of the painful areas. In April he transferred to [facility] to assess for his respiratory status. He states there was no plasmapheresis. His hemoglobin is 9.4 with a recheck count of 10 and his total bilirubin is up at 1.7 but these are consistent with laboratory studies obtained on previous admissions. He will be given aggressive IV fluids as well as aggressive analgesia. Hopefully we can get him turned around quickly. He does report that he wants to get back home with his children. 10/06/2019-no acute events the last 24 hours. As per the patient pain is under control. Oncology on board. 10/07/19-patient is comfortable in the bed communicating well. No complaints. Dr. Medellin on board. 10/08/2019-discussed the plan with Dr. Morton she wants to brandon off his pain medications and recommending discharge may be in a day or 2. I agree with her recommendations. No acute events in the last 24 hours. Comfortably in the bed communicating well. Reason For Visit: SICKLE CELL CRISIS,CHRONIC PAIN Physical Exam Vital Signs: Temp Pulse Resp BP Pulse Ox 98.7 F 94 18 139/86 H 92 10/08/19 01:56 10/08/19 01:56 10/08/19 01:56 10/08/19 01:56 10/08/19 01:56 Intake & Output 10/07/19 10/08/19 10/09/19 06:59 06:59 06:59 Intake Total 3100 2496 Output Total 3160 2700 Balance -60 -204 Weight 92.6 kg 90.2 kg General appearance: PRESENT: no acute distress, well-developed Head exam: PRESENT: atraumatic Eye exam: PRESENT: conjunctiva pale, PERRLA Mouth exam: PRESENT: moist, tongue midline Teeth exam: PRESENT: poor dentation Neck exam: ABSENT: carotid bruit, JVD, lymphadenopathy, thyromegaly Respiratory exam: PRESENT: decreased breath sounds Cardiovascular exam: PRESENT: RRR. ABSENT: diastolic murmur, rubs, systolic murmur Vascular exam: PRESENT: normal capillary refill GI/Abdominal exam: PRESENT: normal bowel sounds, soft. ABSENT: distended, guarding, mass, organolmegaly, rebound, tenderness Rectal exam: PRESENT: deferred Extremities exam: PRESENT: full ROM. ABSENT: calf tenderness, clubbing, pedal edema Neurological exam: PRESENT: alert, awake, oriented to person, oriented to place, oriented to time, oriented to situation, CN II-XII grossly intact. ABSENT: motor sensory deficit Psychiatric exam: PRESENT: appropriate affect, normal mood. ABSENT: homicidal ideation, suicidal ideation Results Laboratory Results: 10/07/19 06:00 10/07/19 06:00 10/05/19 15:25 Throat Throat Culture - Final REDUCED NORMAL KAMRON Impressions: Shoulder X-Ray 09/30/19 01:32 IMPRESSION: No evidence of acute osseous injury involving either shoulder. No focal osseous abnormalities are identified. Chest X-Ray 10/02/19 00:00 IMPRESSION: NO CHANGE IN APPEARANCE OF THE CHEST. Assessment and Plan - Diagnosis (1) Sickle cell crisis Is this a current diagnosis for this admission?: Yes Plan: 09/30/2019 Aggressive IV fluids. Aggressive pain management. Monitor CBC. 10/01/2019 Feeling better with IV fluids and aggressive pain management. He also remains on his hydroxyurea. He does want to get home to his daughters. Possibly discharge tomorrow. 10/02/2019 Still complaining of pain. We will continue IV fluids. We will continue hydroxyurea and current pain management regimen. 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 I will recheck reticulocyte count tomorrow. 10/03/2019 Continue aggressive IV fluids. Reticulocyte count is no different than admission. Continue to monitor laboratory studies. Continue supportive care and pain management. 10/04/2019 Fluids and pain management 10/05/2019 Continue current regimen 10/06/2019-continue the present management as recommended by heme-onc. 10/06/2017-no complaints of pain this morning. Comfortably in the bed communicating well. Pain management as per oncology team. 10/08/2019-patient admitted with sickle cell crisis hematology is managing the patient as per the pain is concerned. (2) Chronic pain Qualifiers: Chronic pain type: other chronic pain Qualified Code(s): G89.29 - Other chronic pain Is this a current diagnosis for this admission?: Yes Plan: IV Dilaudid and IV Benadryl. 10/01/2019 Continue current medication regimen including additions by hematology 10/02/2019 No changes at this time 10/03/2019 As above 10/04/2019 Researched the use of nonsteroidal anti-inflammatories but benefits were limited to none. No change in medication at this time. 10/05/2019 Continue current regimen 10/08/2019-pain management as per hematology. (3) Constipation Qualifiers: Constipation type: slow transit constipation Qualified Code(s): K59.01 - Slow transit constipation Is this a current diagnosis for this admission?: Yes Plan: 09/30/2019 Opioid-induced constipation. Continue MiraLAX senna plus as needed bisacodyl 10/01/2019 Continue current regimen. If constipation persists consider hematochezia (lubiprostone), Linzess or Relistor 10/02/2019 No bowel movement documented yet. I will start a trial of lubiprostone. 10/04/2019 We will order citrate of magnesium 10/05/2019 Currently on lubiprostone with mag citrate available twice daily if needed (4) Opiate dependence, continuous Is this a current diagnosis for this admission?: Yes Plan: 09/30/2019 Continue current regimen. Old medication list contains oxycodone and methadone but these are not on his newly reconciled list. 10/01/2019 Baclofen, methadone and Sudafed added by hematology. These are likely part of his home regimen that was not reconciled at admission. 10/02/2019 Continued use of opiates for pain management 10/03/2019 Will add lubiprostone for opiate-induced constipation. 10/05/2019 No bowel movement documented at this time. Continue current regimen for pain.
[2019-10-08] MEDS: IBUPROFEN 800 MG TABLET PO PRN (23:31)
[2019-10-09] MEDS: HYDROMORPHONE HCL INJ/PF 2 MG/ML AMPULE IV PRN ×10 (00:10→22:08)
[2019-10-09] MEDS: DIPHENHYDRAMINE HCL 50 MG/ML VIAL IV PRN ×5 (00:10→19:48)
[2019-10-09] MEDS: RINGERS SOLUTION,LACTATED 1,000 ML IV PRN ×2 (00:38→21:52)
--- NOTE | 2019-10-09 07:41 | PDOC PROGRESS REPORT ---
Subjective Progress Note for:: 10/09/19 Subjective:: Doing better today, feels that he will be ready to go tomorrow. Reason For Visit: SICKLE CELL CRISIS,CHRONIC PAIN Physical Exam Vital Signs: Temp Pulse Resp BP Pulse Ox 98.6 F 80 18 132/71 H 100 10/08/19 22:29 10/08/19 22:29 10/08/19 22:29 10/08/19 22:29 10/08/19 22:29 Intake & Output 10/08/19 10/09/19 10/10/19 06:59 06:59 06:59 Intake Total 2496 2997 Output Total 2700 4600 Balance -204 -1603 Weight 90.2 kg 90.8 kg General appearance: PRESENT: no acute distress, well-developed, well-nourished Head exam: PRESENT: atraumatic, normocephalic Eye exam: PRESENT: conjunctiva pink, EOMI, PERRLA. ABSENT: scleral icterus Ear exam: PRESENT: normal external ear exam Mouth exam: PRESENT: moist, tongue midline Neck exam: ABSENT: carotid bruit, JVD, lymphadenopathy, thyromegaly Respiratory exam: PRESENT: clear to auscultation anastasiya. ABSENT: rales, rhonchi, wheezes Cardiovascular exam: PRESENT: RRR. ABSENT: diastolic murmur, rubs, systolic murmur Pulses: PRESENT: normal dorsalis pedis pul Vascular exam: PRESENT: normal capillary refill GI/Abdominal exam: PRESENT: normal bowel sounds, soft. ABSENT: distended, guarding, mass, organolmegaly, rebound, tenderness Rectal exam: PRESENT: deferred Extremities exam: PRESENT: full ROM. ABSENT: calf tenderness, clubbing, pedal edema Neurological exam: PRESENT: alert, awake, oriented to person, oriented to place, oriented to time, oriented to situation, CN II-XII grossly intact. ABSENT: motor sensory deficit Psychiatric exam: PRESENT: appropriate affect, normal mood. ABSENT: homicidal ideation, suicidal ideation Skin exam: PRESENT: dry, intact, warm. ABSENT: cyanosis, rash Results Laboratory Results: 10/07/19 06:00 10/07/19 06:00 Impressions: Shoulder X-Ray 09/30/19 01:32 IMPRESSION: No evidence of acute osseous injury involving either shoulder. No focal osseous abnormalities are identified. Chest X-Ray 10/02/19 00:00 IMPRESSION: NO CHANGE IN APPEARANCE OF THE CHEST. Assessment & Plan - Diagnosis (1) Sickle cell crisis Is this a current diagnosis for this admission?: Yes Plan: Improving, planning for hopeful d/c tomorrow. He has pain meds at home so will not need new rx. 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 Told him he can take the eye drops home w/ him if he d/cs tomorrow. Should not need another rx. - Time Time Spent with patient: 15-24 minutes
[2019-10-09] MEDS: SENNOSIDES/DOCUSATE 8.6-50 MG 1 EACH TABLET PO SCH ×2 (09:39→17:11)
[2019-10-09] MEDS: POLYETHYLENE GLYCOL 3350 POWDER 17 GM/1 PACKET PO SCH (09:39)
[2019-10-09] MEDS: HYDROXYUREA 500 MG CAPSULE PO SCH (09:46)
[2019-10-09] MEDS: DOCUSATE SODIUM 100 MG CAPSULE PO SCH (09:47)
[2019-10-09] MEDS: LUBIPROSTONE 24 MCG CAPSULE PO SCH ×2 (09:47→21:52)
[2019-10-09] MEDS: ACETAZOLAMIDE 250 MG TABLET PO SCH ×2 (09:47→21:52)
[2019-10-09] MEDS: TOBRAMYCIN SULFATE/DEXAMETH OPH SUSP 2.5 ML OD SCH ×4 (09:47→22:00)
[2019-10-09] MEDS: FOLIC ACID 1 MG TABLET PO SCH (09:47)
--- NOTE | 2019-10-09 11:27 | PDOC PROGRESS REPORT ---
Subjective Progress Note for:: 10/09/19 Subjective:: 38 year old male who is well-known to the hospitalist service. He states that approximately 1 week ago he began to notice increased discomfort especially in his joints. The patella was involved and in fact the clavicles and muscle aches were the worst of the painful areas. In April he transferred to [facility] to assess for his respiratory status. He states there was no plasmapheresis. His hemoglobin is 9.4 with a recheck count of 10 and his total bilirubin is up at 1.7 but these are consistent with laboratory studies obtained on previous admissions. He will be given aggressive IV fluids as well as aggressive analgesia. Hopefully we can get him turned around quickly. He does report that he wants to get back home with his children. 10/06/2019-no acute events the last 24 hours. As per the patient pain is under control. Oncology on board. 10/07/19-patient is comfortable in the bed communicating well. No complaints. Dr. Medellin on board. 10/08/2019-discussed the plan with Dr. Morton she wants to brandon off his pain medications and recommending discharge may be in a day or 2. I agree with her recommendations. No acute events in the last 24 hours. Comfortably in the bed communicating well. 10/09/2019-patient seen by Dr. Medellin today. He thinks patient may be ready to go home tomorrow. In the meantime will follow the present management. No acute events in the last 24 hours. Afebrile. Reason For Visit: SICKLE CELL CRISIS,CHRONIC PAIN Physical Exam Vital Signs: Temp Pulse Resp BP Pulse Ox 98.2 F 70 18 113/60 100 10/09/19 08:17 10/09/19 08:17 10/09/19 08:17 10/09/19 08:17 10/09/19 08:17 Intake & Output 10/08/19 10/09/19 10/10/19 06:59 06:59 06:59 Intake Total 2496 2997 Output Total 2700 5890 Balance -204 -1603 Weight 90.2 kg 90.8 kg General appearance: PRESENT: no acute distress, well-developed Head exam: PRESENT: atraumatic Eye exam: PRESENT: PERRLA Mouth exam: PRESENT: moist, tongue midline Teeth exam: PRESENT: poor dentation Neck exam: ABSENT: carotid bruit, JVD, lymphadenopathy, thyromegaly Respiratory exam: PRESENT: decreased breath sounds Cardiovascular exam: PRESENT: RRR. ABSENT: diastolic murmur, rubs, systolic murmur GI/Abdominal exam: PRESENT: normal bowel sounds, soft. ABSENT: distended, guarding, mass, organolmegaly, rebound, tenderness Rectal exam: PRESENT: deferred Neurological exam: PRESENT: alert, awake, oriented to person, oriented to place, oriented to time, oriented to situation, CN II-XII grossly intact. ABSENT: motor sensory deficit Psychiatric exam: PRESENT: appropriate affect, normal mood. ABSENT: homicidal ideation, suicidal ideation Results Laboratory Results: 10/07/19 06:00 10/07/19 06:00 Impressions: Shoulder X-Ray 09/30/19 01:32 IMPRESSION: No evidence of acute osseous injury involving either shoulder. No focal osseous abnormalities are identified. Chest X-Ray 10/02/19 00:00 IMPRESSION: NO CHANGE IN APPEARANCE OF THE CHEST. Assessment and Plan - Diagnosis (1) Sickle cell crisis Is this a current diagnosis for this admission?: Yes Plan: 09/30/2019 Aggressive IV fluids. Aggressive pain management. Monitor CBC. 10/01/2019 Feeling better with IV fluids and aggressive pain management. He also remains on his hydroxyurea. He does want to get home to his daughters. Possibly discharge tomorrow. 10/02/2019 Still complaining of pain. We will continue IV fluids. We will continue hydroxyurea and current pain management regimen. The patient's hypertrichologist is helping with pain management as well. I will recheck reticulocyte count tomorrow. 10/03/2019 Continue aggressive IV fluids. Reticulocyte count is no different than admission. Continue to monitor laboratory studies. Continue supportive care and pain management. 10/04/2019 Fluids and pain management 10/05/2019 Continue current regimen 10/06/2019-continue the present management as recommended by heme-onc. 10/06/2017-no complaints of pain this morning. Comfortably in the bed communicating well. Pain management as per oncology team. 10/08/2019-patient admitted with sickle cell crisis hematology is managing the patient as per the pain is concerned. 10/09/2019-patient admitted with sickle cell anemia with crisis pain management as per oncology team. (2) Chronic pain Qualifiers: Chronic pain type: other chronic pain Qualified Code(s): G89.29 - Other chronic pain Is this a current diagnosis for this admission?: Yes Plan: IV Dilaudid and IV Benadryl. 10/01/2019 Continue current medication regimen including additions by hematology 10/02/2019 No changes at this time 10/03/2019 As above 10/04/2019 Researched the use of nonsteroidal anti-inflammatories but benefits were limited to none. No change in medication at this time. 10/05/2019 Continue current regimen 10/08/2019-pain management as per hematology. (3) Constipation Qualifiers: Constipation type: slow transit constipation Qualified Code(s): K59.01 - Slow transit constipation Is this a current diagnosis for this admission?: Yes Plan: 09/30/2019 Opioid-induced constipation. Continue MiraLAX senna plus as needed bisacodyl 10/01/2019 Continue current regimen. If constipation persists consider hematochezia (lubiprostone), Linzess or Relistor 10/02/2019 No bowel movement documented yet. I will start a trial of lubiprostone. 10/04/2019 We will order citrate of magnesium 10/05/2019 Currently on lubiprostone with mag citrate available twice daily if needed (4) Opiate dependence, continuous Is this a current diagnosis for this admission?: Yes Plan: 09/30/2019 Continue current regimen. Old medication list contains oxycodone and methadone but these are not on his newly reconciled list. 10/01/2019 Baclofen, methadone and Sudafed added by hematology. These are likely part of his home regimen that was not reconciled at admission. 10/02/2019 Continued use of opiates for pain management 10/03/2019 Will add lubiprostone for opiate-induced constipation. 10/05/2019 No bowel movement documented at this time. Continue current regimen for pain.
[2019-10-10] MEDS: DIPHENHYDRAMINE HCL 50 MG/ML VIAL IV PRN ×4 (00:05→16:22)
[2019-10-10] MEDS: HYDROMORPHONE HCL INJ/PF 2 MG/ML AMPULE IV PRN ×7 (00:08→16:22)
[2019-10-10] MEDS: RINGERS SOLUTION,LACTATED 1,000 ML IV PRN (09:23)
[2019-10-10] MEDS: POLYETHYLENE GLYCOL 3350 POWDER 17 GM/1 PACKET PO SCH (10:16)
[2019-10-10] MEDS: DOCUSATE SODIUM 100 MG CAPSULE PO SCH (10:16)
[2019-10-10] MEDS: FOLIC ACID 1 MG TABLET PO SCH (10:16)
[2019-10-10] MEDS: HYDROXYUREA 500 MG CAPSULE PO SCH (10:16)
[2019-10-10] MEDS: ACETAZOLAMIDE 250 MG TABLET PO SCH (10:16)
[2019-10-10] MEDS: LUBIPROSTONE 24 MCG CAPSULE PO SCH (10:16)
[2019-10-10] MEDS: TOBRAMYCIN SULFATE/DEXAMETH OPH SUSP 2.5 ML OD SCH ×2 (10:17→13:23)
[2019-10-10] MEDS: SENNOSIDES/DOCUSATE 8.6-50 MG 1 EACH TABLET PO SCH ×2 (10:17→17:12)
[2019-10-10 12:00] VITALS: BP 122/58
--- NOTE | 2019-10-10 15:29 | PDOC PROGRESS REPORT ---
Subjective Progress Note for:: 10/10/19 Subjective:: 38 year old male who is well-known to the hospitalist service. He states that approximately 1 week ago he began to notice increased discomfort especially in his joints. The patella was involved and in fact the clavicles and muscle aches were the worst of the painful areas. In April he transferred to [facility] to assess for his respiratory status. He states there was no plasmapheresis. His hemoglobin is 9.4 with a recheck count of 10 and his total bilirubin is up at 1.7 but these are consistent with laboratory studies obtained on previous admissions. He will be given aggressive IV fluids as well as aggressive analgesia. Hopefully we can get him turned around quickly. He does report that he wants to get back home with his children. 10/06/2019-no acute events the last 24 hours. As per the patient pain is under control. Oncology on board. 10/07/19-patient is comfortable in the bed communicating well. No complaints. Dr. Medellin on board. 10/08/2019-discussed the plan with Dr. Morton she wants to brandon off his pain medications and recommending discharge may be in a day or 2. I agree with her recommendations. No acute events in the last 24 hours. Comfortably in the bed communicating well. 10/09/2019-patient seen by Dr. Medellin today. He thinks patient may be ready to go home tomorrow. In the meantime will follow the present management. No acute events in the last 24 hours. Afebrile. 10/10/2019-no acute events in the last 24 hours. Doing well. Admitted for sickle cell crisis management as per hematology team. Reason For Visit: SICKLE CELL CRISIS,CHRONIC PAIN Physical Exam Vital Signs: Temp Pulse Resp BP Pulse Ox 98.3 F 91 17 122/58 L 93 10/10/19 11:59 10/10/19 11:59 10/10/19 11:59 10/10/19 11:59 10/10/19 11:59 Intake & Output 10/09/19 10/10/19 10/11/19 06:59 06:59 06:59 Intake Total 2997 2320 1260 Output Total 4600 3750 700 Balance -1603 -1430 560 Weight 90.8 kg 90.8 kg General appearance: PRESENT: no acute distress, well-developed Head exam: PRESENT: atraumatic Eye exam: PRESENT: PERRLA Mouth exam: PRESENT: moist, tongue midline Teeth exam: PRESENT: poor dentation Neck exam: ABSENT: carotid bruit, JVD, lymphadenopathy, thyromegaly Respiratory exam: PRESENT: decreased breath sounds Cardiovascular exam: PRESENT: RRR. ABSENT: diastolic murmur, rubs, systolic murmur Pulses: PRESENT: normal dorsalis pedis pul GI/Abdominal exam: PRESENT: normal bowel sounds, soft. ABSENT: distended, guarding, mass, organolmegaly, rebound, tenderness Rectal exam: PRESENT: deferred Neurological exam: PRESENT: alert, awake, oriented to person, oriented to place, oriented to time, oriented to situation, CN II-XII grossly intact. ABSENT: motor sensory deficit Psychiatric exam: PRESENT: appropriate affect, normal mood. ABSENT: homicidal ideation, suicidal ideation Results Laboratory Results: 10/07/19 06:00 10/07/19 06:00 Impressions: Shoulder X-Ray 09/30/19 01:32 IMPRESSION: No evidence of acute osseous injury involving either shoulder. No focal osseous abnormalities are identified. Chest X-Ray 10/02/19 00:00 IMPRESSION: NO CHANGE IN APPEARANCE OF THE CHEST. Assessment and Plan - Diagnosis (1) Sickle cell crisis Is this a current diagnosis for this admission?: Yes Plan: 09/30/2019 Aggressive IV fluids. Aggressive pain management. Monitor CBC. 10/01/2019 Feeling better with IV fluids and aggressive pain management. He also remains on his hydroxyurea. He does want to get home to his daughters. Possibly discharge tomorrow. 10/02/2019 Still complaining of pain. We will continue IV fluids. We will continue hydroxyurea and current pain management regimen. 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 I will recheck reticulocyte count tomorrow. 10/03/2019 Continue aggressive IV fluids. Reticulocyte count is no different than admission. Continue to monitor laboratory studies. Continue supportive care and pain management. 10/04/2019 Fluids and pain management 10/05/2019 Continue current regimen 10/06/2019-continue the present management as recommended by heme-onc. 10/06/2017-no complaints of pain this morning. Comfortably in the bed communicating well. Pain management as per oncology team. 10/08/2019-patient admitted with sickle cell crisis hematology is managing the patient as per the pain is concerned. 10/09/2019-patient admitted with sickle cell anemia with crisis pain management a s per oncology team. 10/10/2019-hematology on board pain management as per hematology team. (2) Chronic pain Qualifiers: Chronic pain type: other chronic pain Qualified Code(s): G89.29 - Other chronic pain Is this a current diagnosis for this admission?: Yes Plan: IV Dilaudid and IV Benadryl. 10/01/2019 Continue current medication regimen including additions by hematology 10/02/2019 No changes at this time 10/03/2019 As above 10/04/2019 Researched the use of nonsteroidal anti-inflammatories but benefits were limited to none. No change in medication at this time. 10/05/2019 Continue current regimen 10/08/2019-pain management as per hematology. 10/10/2019-plan is to discharge him once cleared by the heme-onc team. (3) Constipation Qualifiers: Constipation type: slow transit constipation Qualified Code(s): K59.01 - Slow transit constipation Is this a current diagnosis for this admission?: Yes Plan: 09/30/2019 Opioid-induced constipation. Continue MiraLAX senna plus as needed bisacodyl 10/01/2019 Continue current regimen. If constipation persists consider hematochezia (lubiprostone), Linzess or Relistor 10/02/2019 No bowel movement documented yet. I will start a trial of lubiprostone. 10/04/2019 We will order citrate of magnesium 10/05/2019 Currently on lubiprostone with mag citrate available twice daily if needed (4) Opiate dependence, continuous Is this a current diagnosis for this admission?: Yes Plan: 09/30/2019 Continue current regimen. Old medication list contains oxycodone and methadone but these are not on his newly reconciled list. 10/01/2019 Baclofen, methadone and Sudafed added by hematology. These are likely part of his home regimen that was not reconciled at admission. 10/02/2019 Continued use of opiates for pain management 10/03/2019 Will add lubiprostone for opiate-induced constipation. 10/05/2019 No bowel movement documented at this time. Continue current regimen for pain.
--- NOTE | 2019-10-10 16:47 | PDOC PROGRESS REPORT ---
Subjective Progress Note for:: 10/10/19 Subjective:: Patient without new complaints today. Agrees that he is feeling well enough for discharge today. Reason For Visit: SICKLE CELL CRISIS,CHRONIC PAIN Physical Exam Vital Signs: Temp Pulse Resp BP Pulse Ox 98.3 F 91 17 122/58 L 93 10/10/19 11:59 10/10/19 11:59 10/10/19 11:59 10/10/19 11:59 10/10/19 11:59 Intake & Output 10/09/19 10/10/19 10/11/19 06:59 06:59 06:59 Intake Total 2997 2320 1260 Output Total 4600 3750 700 Balance -1603 -1430 560 Weight 90.8 kg 90.8 kg General appearance: PRESENT: no acute distress Head exam: PRESENT: atraumatic, normocephalic Eye exam: PRESENT: EOMI Neurological exam: PRESENT: alert, awake Skin exam: PRESENT: normal color Results Laboratory Results: 10/07/19 06:00 10/07/19 06:00 Impressions: Shoulder X-Ray 09/30/19 01:32 IMPRESSION: No evidence of acute osseous injury involving either shoulder. No focal osseous abnormalities are identified. Chest X-Ray 10/02/19 00:00 IMPRESSION: NO CHANGE IN APPEARANCE OF THE CHEST. Assessment & Plan - Diagnosis (1) Sickle cell pain crisis Is this a current diagnosis for this admission?: Yes Plan: OK for discharge today. Will follow-up in office for further pain medications, etc. - Time Time Spent with patient: Less than 15 minutes
--- NOTE | 2019-10-10 16:48 | PDOC DISCHARGE SUMMARY ---
Impression - Admit/DC Date/PCP Admission Date/Primary Care Provider: 09/30/19 08:47 BETH MEDELLIN MD Discharge Date: 10/10/19 - Discharge Diagnosis (1) Sickle cell crisis Is this a current diagnosis for this admission?: Yes (2) Chronic pain Is this a current diagnosis for this admission?: Yes (3) Constipation Is this a current diagnosis for this admission?: Yes (4) Opiate dependence, continuous Is this a current diagnosis for this admission?: Yes - Assessment Summary: (1) Sickle cell crisis Is this a current diagnosis for this admission?: Yes Plan: 09/30/2019 Aggressive IV fluids. Aggressive pain management. Monitor CBC. 10/01/2019 Feeling better with IV fluids and aggressive pain management. He also remains on his hydroxyurea. He does want to get home to his daughters. Possibly discharge tomorrow. 10/02/2019 Still complaining of pain. We will continue IV fluids. We will continue hydroxyurea and current pain management regimen. 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 I will recheck reticulocyte count tomorrow. 10/03/2019 Continue aggressive IV fluids. Reticulocyte count is no different than admission. Continue to monitor laboratory studies. Continue supportive care and pain management. 10/04/2019 Fluids and pain management 10/05/2019 Continue current regimen 10/06/2019-continue the present management as recommended by heme-onc. 10/06/2017-no complaints of pain this morning. Comfortably in the bed communicating well. Pain management as per oncology team. 10/08/2019-patient admitted with sickle cell crisis hematology is managing the patient as per the pain is concerned. 10/09/2019-patient admitted with sickle cell anemia with crisis pain management as per oncology team. 10/10/2019-hematology on board pain management as per hematology team. (2) Chronic pain Qualifiers: Chronic pain type: other chronic pain Qualified Code(s): G89.29 - Other chronic pain Is this a current diagnosis for this admission?: Yes Plan: IV Dilaudid and IV Benadryl. 10/01/2019 Continue current medication regimen including additions by hematology 10/02/2019 No changes at this time 10/03/2019 As above 10/04/2019 Researched the use of nonsteroidal anti-inflammatories but benefits were limited to none. No change in medication at this time. 10/05/2019 Continue current regimen 10/08/2019-pain management as per hematology. 10/10/2019-plan is to discharge him once cleared by the heme-onc team. 10/10/2019-Dr. grewal came to see the patient she recommended that patient can go home today and follow-up in the office next week. (3) Constipation Qualifiers: Constipation type: slow transit constipation Qualified Code(s): K59.01 - Slow transit constipation Is this a current diagnosis for this admission?: Yes Plan: 09/30/2019 Opioid-induced constipation. Continue MiraLAX senna plus as needed bisacodyl 10/01/2019 Continue current regimen. If constipation persists consider hematochezia (lubip rostone), Linzess or Relistor 10/02/2019 No bowel movement documented yet. I will start a trial of lubiprostone. 10/04/2019 We will order citrate of magnesium 10/05/2019 Currently on lubiprostone with mag citrate available twice daily if needed (4) Opiate dependence, continuous Is this a current diagnosis for this admission?: Yes Plan: 09/30/2019 Continue current regimen. Old medication list contains oxycodone and methadone but these are not on his newly reconciled list. 10/01/2019 Baclofen, methadone and Sudafed added by hematology. These are likely part of his home regimen that was not reconciled at admission. 10/02/2019 Continued use of opiates for pain management 10/03/2019 Will add lubiprostone for opiate-induced constipation. 10/05/2019 No bowel movement documented at this time. Continue current regimen for pain. - Additional Information Resuscitation Status: Full Code Discharge Diet: Regular Discharge Activity: Activity As Tolerated Referrals: BETH MEDELLIN MD [Primary Care Provider] - Follow up as needed Home Medications: Folic Acid [Folvite 1 mg Tablet] 1 mg PO DAILY 02/19/19 Hydroxyurea [Hydrea 500 mg Capsule] 1,500 mg PO DAILY 02/19/19 Oxycodone HCl [Oxy-Ir 5 mg Tablet] 10 mg PO Q4HP PRN 02/19/19 History of Present Illiness History of Present Illness: MARISA GARBER is a 38 year old male 38 year old male who is well-known to the hospitalist service. He states that approximately 1 week ago he began to notice increased discomfort especially in his joints. The patella was involved and in fact the clavicles and muscle aches were the worst of the painful areas. In April he transferred to [facility] to assess for his respiratory status. He states there was no plasmapheresis. His hemoglobin is 9.4 with a recheck count of 10 and his total bilirubin is up at 1.7 but these are consistent with laboratory studies obtained on previous admissions. He will be given aggressive IV fluids as well as aggressive analgesia. Hopefully we can get him turned around quickly. He does report that he wants to get back home with his children. Hospital Course Hospital Course: 38 year old male who is well-known to the hospitalist service. He states that approximately 1 week ago he began to notice increased discomfort especially in his joints. The patella was involved and in fact the clavicles and muscle aches were the worst of the painful areas. In April he transferred to [facility] to assess for his respiratory status. He states there was no plasmapheresis. His hemoglobin is 9.4 with a recheck count of 10 and his total bilirubin is up at 1.7 but these are consistent with laboratory studies obtained on previous admissions. He will be given aggressive IV fluids as well as aggressive analgesia. Hopefully we can get him turned around quickly. He does report that he wants to get back home with his children. 10/06/2019-no acute events the last 24 hours. As per the patient pain is under control. Oncology on board. 10/07/19-patient is comfortable in the bed communicating well. No complaints. Dr. Medellin on board. 10/08/2019-discussed the plan with Dr. Morton she wants to brandon off his pain medications and recommending discharge may be in a day or 2. I agree with her recommendations. No acute events in the last 24 hours. Comfortably in the bed communicating well. 10/09/2019-patient seen by Dr. Medellin today. He thinks patient may be ready to go home tomorrow. In the meantime will follow the present management. No acute events in the last 24 hours. Afebrile. 10/10/2019-no acute events in the last 24 hours. Doing well. Admitted for sickle cell crisis management as per hematology team. 10/10/2019-patient his condition is stable Dr. Morton came to see the patient recommended discharge. Physical Exam Vital Signs: Temp Pulse Resp BP Pulse Ox 98.3 F 91 17 122/58 L 93 10/10/19 11:59 10/10/19 11:59 10/10/19 11:59 10/10/19 11:59 10/10/19 11:59 Intake & Output 10/09/19 10/10/19 10/11/19 06:59 06:59 06:59 Intake Total 2997 2320 1260 Output Total 4600 3750 700 Balance -1603 -1430 560 Weight 90.8 kg 90.8 kg General appearance: PRESENT: no acute distress, well-developed Head exam: PRESENT: atraumatic Eye exam: PRESENT: conjunctiva pale, PERRLA Ear exam: PRESENT: normal external ear exam Mouth exam: PRESENT: neck supple Teeth exam: PRESENT: poor dentation Neck exam: ABSENT: carotid bruit, JVD, lymphadenopathy, thyromegaly Respiratory exam: PRESENT: decreased breath sounds Cardiovascular exam: PRESENT: RRR. ABSENT: diastolic murmur, rubs, systolic murmur GI/Abdominal exam: PRESENT: normal bowel sounds, soft. ABSENT: distended, guarding, mass, organolmegaly, rebound, tenderness Rectal exam: PRESENT: deferred Extremities exam: PRESENT: full ROM. ABSENT: calf tenderness, clubbing, pedal edema Neurological exam: PRESENT: alert, awake, oriented to person, oriented to place, oriented to time, oriented to situation, CN II-XII grossly intact. ABSENT: motor sensory deficit Psychiatric exam: PRESENT: appropriate affect, normal mood. ABSENT: homicidal ideation, suicidal ideation Results Laboratory Results: WBC 7.7 10^3/uL (4.0-10.5) 10/07/19 06:00 RBC 2.43 10^6/uL (4.35-5.55) L 10/07/19 06:00 Hgb 8.0 g/dL (13.5-17.0) L 10/07/19 06:00 Hct 22.4 % (37.9-51.0) L 10/07/19 06:00 MCV 92 fl (80-97) 10/07/19 06:00 MCH 32.8 pg (27.0-33.4) 10/07/19 06:00 MCHC 35.5 g/dL (32.0-36.0) 10/07/19 06:00 RDW 23.3 % (11.5-14.0) H 10/07/19 06:00 Plt Count 305 10^3/uL (150-450) 10/07/19 06:00 Lymph % (Auto) Not Reportable 10/07/19 06:00 [place] % (Auto) Not Reportable 10/07/19 06:00 Eos % (Auto) Not Reportable 10/07/19 06:00 Baso % (Auto) Not Reportable 10/07/19 06:00 Reticulocyte # 0.269 10^6/uL (0.028-0.122) H 10/03/19 06:50 Absolute Neuts (auto) Not Reportable 10/07/19 06:00 Absolute Lymphs (auto) Not Reportable 10/07/19 06:00 Absolute Monos (auto) Not Reportable 10/07/19 06:00 Absolute Eos (auto) Not Reportable 10/07/19 06:00 Absolute Basos (auto) Not Reportable 10/07/19 06:00 Total Counted 100 10/07/19 06:00 Seg Neutrophils % Not Reportable 10/07/19 06:00 Seg Neuts % (Manual) 49 % (42-78) 10/07/19 06:00 Band Neutrophils % 1 % (3-5) L 10/07/19 06:00 Lymphocytes % (Manual) 37 % (13-45) 10/07/19 06:00 Atypical Lymphs % 2 % (0) 10/02/19 04:15 Monocytes % (Manual) 7 % (3-13) 10/07/19 06:00 Eosinophils % (Manual) 5 % (0-6) 10/07/19 06:00 Basophils % (Manual) 1 % (0-2) 10/07/19 06:00 Abs Neuts (Manual) 3.9 10^3/uL (1.7-8.2) 10/07/19 06:00 Abs Lymphs (Manual) 2.8 10^3/uL (0.5-4.7) 10/07/19 06:00 Abs Monocytes (Manual) 0.5 10^3/uL (0.1-1.4) 10/07/19 06:00 Absolute Eos (Manual) 0.4 10^3/uL (0.0-0.6) 10/07/19 06:00 Abs Basophils (Manual) 0.1 10^3/uL (0.0-0.2) 10/07/19 06:00 Nucleated RBCs 10 /100 WBC (0) 10/07/19 06:00 Toxic Granulation SLIGHT 10/02/19 04:15 Toxic Vacuolation PRESENT 10/01/19 04:50 Large Platelets PRESENT 10/07/19 06:00 Platelet Comment ADEQUATE 10/07/19 06:00 Polychromasia 2+ 10/07/19 06:00 Hypochromasia SLIGHT 10/07/19 06:00 Poikilocytosis 2+ 10/07/19 06:00 Basophilic Stippling PRESENT 10/07/19 06:00 Anisocytosis 3+ 10/07/19 06:00 Sickle Cells 1+ 10/07/19 06:00 Target Cells SLIGHT 10/07/19 06:00 Tear Drop Cells SLIGHT 10/07/19 06:00 Ovalocytes 2+ 10/07/19 06:00 Schistocytes SLIGHT 10/07/19 06:00 Retic Count (auto) 10.39 % (0.66-2.85) H 10/03/19 06:50 Sodium 138.0 mmol/L (137-145) 10/07/19 06:00 Potassium 4.5 mmol/L (3.6-5.0) 10/07/19 06:00 Chloride 102 mmol/L (98-107) 10/07/19 06:00 Carbon Dioxide 31 mmol/L (22-30) H 10/07/19 06:00 Anion Gap 5 (5-19) 10/07/19 06:00 BUN 8 mg/dL (7-20) 10/07/19 06:00 Creatinine 0.61 mg/dL (0.52-1.25) 10/07/19 06:00 Est GFR ( Amer) > 60 (>60) 10/07/19 06:00 Est GFR (MDRD) Non-Af > 60 (>60) 10/07/19 06:00 Glucose 113 mg/dL (75-110) H 10/07/19 06:00 Calcium 8.9 mg/dL (8.4-10.2) 10/07/19 06:00 Magnesium 1.9 mg/dL (1.6-2.3) 10/03/19 06:50 Total Bilirubin 2.0 mg/dL (0.2-1.3) H 10/07/19 06:00 Direct Bilirubin 0.2 mg/dL (0.0-0.4) 10/07/19 06:00 Neonat Total Bilirubin Not Reportable 10/07/19 06:00 Neonat Direct Bilirubin Not Reportable 10/07/19 06:00 Neonat Indirect Bili Not Reportable 10/07/19 06:00 AST 66 U/L (17-59) H 10/07/19 06:00 ALT 55 U/L (<50) H 10/07/19 06:00 Alkaline Phosphatase 118 U/L (38-126) 10/07/19 06:00 Lactate Dehydrogenase 463 U/L (120-246) H 10/07/19 06:00 Total Protein 7.4 g/dL (6.3-8.2) 10/07/19 06:00 Albumin 3.8 g/dL (3.5-5.0) 10/07/19 06:00 Group A Strep Rapid NEGATIVE (NEGATIVE) 10/05/19 15:25 Slides for Path Review PATHOLOGIST REVIEWED 10/07/19 06:00 Impressions: Shoulder X-Ray 09/30/19 01:32 IMPRESSION: No evidence of acute osseous injury involving either shoulder. No focal osseous abnormalities are identified. Chest X-Ray 10/02/19 00:00 IMPRESSION: NO CHANGE IN APPEARANCE OF THE CHEST. Plan Plan of Treatment: Patient is advised to be compliant with his medications and if the symptoms like chest pain and shortness of breath or severe back pains recurs he was advised to come to the ER. Time Spent: Greater than 30 Minutes Stroke Is this a Stroke Patient?: No Acute Heart Failure - Is this a Heart Failure Patient?: No
== END 2019-10-10 18:56 | disposition home or self-care (01) | DRG 812 ==
LOC: ER 01:13 → EH 08:47 → 4S 10:21
PROVIDERS: ADMIT Hospitalist; ATTEND Internal Medicine
DX: D57.00 Hb-SS disease with crisis, unspecified (principal); F11.20 Opioid dependence, uncomplicated; G89.29 Other chronic pain; K59.03 Drug induced constipation; T40.2X5A Adverse effect of other opioids, initial encounter; J02.9 Acute pharyngitis, unspecified; H10.31 Unspecified acute conjunctivitis, right eye; Z88.8 Allergy status to other drugs, medicaments and biological substances; Z88.1 Allergy status to other antibiotic agents; Z88.5 Allergy status to narcotic agent; Z88.0 Allergy status to penicillin; Z91.040 Latex allergy status; Z87.891 Personal history of nicotine dependence; Z90.49 Acquired absence of other specified parts of digestive tract; Z91.018 Allergy to other foods
CPT/HCPCS: 36415; 71045; 80048; 80053; 83615; 83735; 85025; 85045; 87070; 87880; 93971; 96361; 96374; 96375; 96376; 99285; J1170; J1200; J1642; J3490; J7030; J7120

== ENCOUNTER 2019-10-12 15:03 | Emergency (ER) | payer MEDICARE, MEDICAID ==
[2019-10-12] MEDS ORDERED: RINGERS SOLUTION,LACTATED 1,000 ML IV ONE (15:29)
--- NOTE | 2019-10-12 15:32 | ER Document Report ---
ED Medical Screen (RME) - General Chief Complaint: Sickle Cell Crisis Stated Complaint: MUSCLE PAIN,SHORT OF BREATH Time Seen by Provider: 10/12/19 15:21 Primary Care Provider: BETH STAPLETON MD [Primary Care Provider] - Follow up as needed Mode of Arrival: Wheelchair Notes: HPI; 38-year-old sickle cell patient well-known to the emergency room for chronic visits for his sickle cell presents emergency room complaining of generalized worsening pain with chest pain and shortness of breath that started 2 hours ago. Took his oxycodone around 10 AM without relief. PE: Alert and oriented x3. Moderate distress noted. Lungs: Clear to auscultation without rales rhonchi wheezes. Heart: Regular rate rhythm without murmurs, rubs, gallops. Unable to do full assessment in triage. I have greeted and performed a rapid initial assessment of this patient. A comprehensive ED assessment and evaluation of the patient, analysis of test results and completion of the medical decision making process will be conducted by additional ED providers. I have specifically instructed the patient or family members with the patient to immediately return to any nursing staff should anything change in the patient's condition or with their chief complaint. TRAVEL OUTSIDE OF THE [place] IN LAST 30 DAYS: No - Related Data Allergies/Adverse Reactions: famotidine [From Pepcid] Allergy (Severe, Verified 09/30/19:29) Anaphylaxis ketorolac tromethamine [From Toradol] Allergy (Severe, Verified 09/30/19 01:29) levofloxacin [From Levaquin] Allergy (Severe, Verified 09/30/19:29) meperidine HCl [From Demerol] Allergy (Severe, Verified 09/30/19:29) morphine [Morphine] Allergy (Severe, Verified 09/30/19:29) tramadol HCl [From Ultram] Allergy (Severe, Verified 09/30/19:29) amoxicillin [Amoxicillin] Allergy (Verified 09/30/19:29) fentanyl [Fentanyl] Allergy (Verified 09/30/19:29) latex [Latex] Allergy (Verified 09/30/19:29) ondansetron HCl [From Zofran] Allergy (Verified 09/30/19:29) Pork/Porcine Containing Products Allergy (Verified 06/10/20 01:29) promethazine Allergy (Verified 09/30/19 01:29) Past Medical History - Past Medical History Cardiac Medical History: Denies: Hx Atrial Fibrillation, Hx Congestive Heart Failure, Hx Coronary Artery Disease, Hx Heart Attack, Hx Hypertension Pulmonary Medical History: Denies: Hx Asthma, Hx Bronchitis, Hx COPD, Hx Pneumonia, Hx Tuberculosis Neurological Medical History: Denies: Hx Cerebrovascular Accident, Hx Migraine, Hx Seizures, Hx Parkinson's Disease Endocrine Medical History: Denies: Hx Diabetes Mellitus Type 1, Hx Diabetes Mellitus Type 2 Renal/ Medical History: Denies: Hx Peritoneal Dialysis GI Medical History: Denies: Hx Cirrhosis, Hx Hepatitis Musculoskeltal Medical History: Denies Hx Arthritis, Denies Hx Gout, Reports Hx Musculoskeletal Deformity - right hip avascular necrosis Skin Medical History: Denies Hx Eczema, Denies Hx Psoriasis Psychiatric Medical History: Reports: Hx Depression Infectious Medical History: Denies: Hx Hepatitis Past Surgical History: Reports: Hx Appendectomy, Hx Vascular Surgery - L port placement, Other - Port placement - Immunizations Immunizations up to date: Yes Hx Diphtheria, Pertussis, Tetanus Vaccination: No Physical Exam - Vital signs Vitals: Pulse Resp BP Pulse Ox 90 18 141/79 H 94 10/12/19 15:09 10/12/19 15:09 10/12/19 15:09 10/12/19 15:09 Course - Vital Signs Vital signs: Temp Pulse Resp BP Pulse Ox 98.7 F 90 18 141/79 H 94 10/12/19 15:10 10/12/19 15:09 10/12/19 15:09 10/12/19 15:09 10/12/19 15:09 Doctor's Discharge - Discharge Referrals: BETH STAPLETON MD [Primary Care Provider] - Follow up as needed
[2019-10-12 16:10] LABS: ABSOLUTE RETICS # 0.264 10^6/uL (0.028-0.122); HEMATOCRIT 25.5 % (37.9-51.0); HEMOGLOBIN 8.7 g/dL (13.5-17.0); MEAN CORPUSCULAR HEMOGLOBIN 31.1 pg (27.0-33.4); MEAN CORPUSCULAR HGB CONC 34.1 g/dL (32.0-36.0); MEAN CORPUSCULAR VOLUME 91 fl (80-97); PLATELET COUNT 347 10^3/uL (150-450); RED CELL DISTRIBUTION WIDTH 22.9 % (11.5-14.0); WHITE BLOOD COUNT 11.2 10^3/uL (4.0-10.5)
[2019-10-12 16:27] LABS: ALBUMIN 4.2 g/dL (3.5-5.0); ALKALINE PHOSPHATASE 89 U/L (38-126); ANION GAP 6 (5-19); ASPARTATE AMINO TRANSFERASE 74 U/L (17-59); BILIRUBIN,DIRECT 0.1 mg/dL (0.0-0.4); BILIRUBIN,TOTAL 2.6 mg/dL (0.2-1.3); BLOOD UREA NITROGEN 9 mg/dL (7-20); CARBON DIOXIDE 26 mmol/L (22-30); CHLORIDE 107 mmol/L (98-107); CREATINE KINASE 77 U/L (55-170); GLUCOSE 113 mg/dL (75-110); POTASSIUM 3.5 mmol/L (3.6-5.0); TOTAL PROTEIN 8.2 g/dL (6.3-8.2)
[2019-10-12 16:36] LABS: ABSOLUTE LYMPHOCYTES# (MANUAL) 3.4 10^3/uL (0.5-4.7); ABSOLUTE MONOCYTES # (MANUAL) 0.6 10^3/uL (0.1-1.4); BASOPHILS % (MANUAL) 0 % (0-2); EOSINOPHILS % (MANUAL) 1 % (0-6); LYMPHOCYTES % (MANUAL) 30 % (13-45); METAMYELOCYTES % (MANUAL) 1 % (0-1); MONOCYTES % (MANUAL) 5 % (3-13); NUCLEATED RED BLOOD CELLS 2 /100 WBC (0); SEGMENTED NEUTROPHILS % (MAN) 63 % (42-78); TOTAL CELLS COUNTED 100
[2019-10-12 16:38] LABS: ANISOCYTOSIS 3+; OVALOCYTES 1+; PLATELET COMMENT ADEQUATE; POIKILOCYTOSIS 1+; POLYCHROMASIA 1+; SICKLE RED CELLS SLIGHT; TARGET CELLS SLIGHT; TEAR DROP CELLS SLIGHT
--- NOTE | 2019-10-12 16:40 | RADIOLOGY REPORT (SQ) ---
EXAM DESCRIPTION: CHEST SINGLE VIEW IMAGES COMPLETED DATE/TIME: 10/12/2019 4:25 pm REASON FOR STUDY: chest pain COMPARISON: AP view of the chest from 10/02/2019. EXAM PARAMETERS: NUMBER OF VIEWS: One view. TECHNIQUE: An AP view of the chest was obtained. RADIATION DOSE: NA LIMITATIONS: None. FINDINGS: LUNGS AND PLEURA: Unchanged bilateral basilar predominant parenchymal opacities. There is no superimposed acute consolidation, sizeable pleural effusion or pneumothorax. MEDIASTINUM AND HILAR STRUCTURES: No mediastinal or hilar contour abnormality. HEART AND VASCULAR STRUCTURES: The cardiac silhouette and pulmonary vasculature are within normal ackerman its. BONES: No acute findings. HARDWARE: The tip of the left subclavian vein approach single-lumen poor projects within the SVC. OTHER: No other finding. IMPRESSION: Unchanged bilateral basilar predominant parenchymal opacities. TECHNICAL DOCUMENTATION: JOB ID: [id number] [employer]- All Rights Reserved Reading location - IP/workstation name: [email or web address]
--- NOTE | 2019-10-12 19:06 | ER Document Report ---
ED General - General Mode of Arrival: Wheelchair TRAVEL OUTSIDE OF THE [place] IN LAST 30 DAYS: No <KRYSTA TURNER - Last Filed: 10/12/19 19:03> <VIVIANAISAIAHTIFF - Last Filed: 10/13/19 00:48> - General Chief Complaint: Sickle Cell Crisis Stated Complaint: MUSCLE PAIN,SHORT OF BREATH Time Seen by Provider: 10/12/19 15:21 Primary Care Provider: BETH MEDELLIN MD [Primary Care Provider] - Follow up as needed Notes: Patient is a 38-year-old male with a history of sickle cell who presents emergency department with chief complaint of body pain. Patient reports he hurts all over in his joints. Patient states the pain does feel very similar to his sickle cell crises. Patient states earlier he was having chest pain but that has resolved since receiving IV fluids in triage. Patient was actually in ambulatory surgery earlier today and received a bag of fluid, Dilaudid, Phenergan for his chronic pain. Patient reports on his way home he started to feel bad and turned around to come to the emergency department. Patient denies cough, shortness of breath or fever. Patient is under the care of Dr. Medellin. (KRYSTA TURNER) - Related Data Allergies/Adverse Reactions: famotidine [From Pepcid] Allergy (Severe, Verified 09/30/19 01:29) Anaphylaxis ketorolac tromethamine [From Toradol] Allergy (Severe, Verified 09/30/19 01:29) levofloxacin [From Levaquin] Allergy (Severe, Verified 09/30/19:29) meperidine HCl [From Demerol] Allergy (Severe, Verified 09/30/19:29) morphine [Morphine] Allergy (Severe, Verified 09/30/19:29) tramadol HCl [From Ultram] Allergy (Severe, Verified 09/30/19:29) amoxicillin [Amoxicillin] Allergy (Verified 09/30/19:29) fentanyl [Fentanyl] Allergy (Verified 09/30/19:29) latex [Latex] Allergy (Verified 09/30/19:29) ondansetron HCl [From Zofran] Allergy (Verified 09/30/19:29) Pork/Porcine Containing Products Allergy (Verified 09/30/19:29) promethazine Allergy (Verified 09/30/19 01:29) Past Medical History - General Information source: Patient - Social History Smoking Status: Unknown if Ever Smoked Frequency of alcohol use: None Drug Abuse: None Lives with: Family Family History: Reviewed & Not Pertinent, Hypertension, Other - Sepsis Patient has homicidal ideation: No - Past Medical History Cardiac Medical History: Reports: None Denies: Hx Atrial Fibrillation, Hx Congestive Heart Failure, Hx Coronary Artery Disease, Hx Heart Attack, Hx Hypertension Pulmonary Medical History: Reports: None Denies: Hx Asthma, Hx Bronchitis, Hx COPD, Hx Pneumonia, Hx Tuberculosis EENT Medical History: Reports: None Neurological Medical History: Reports: None. Denies: Hx Cerebrovascular Accident, Hx Migraine, Hx Seizures, Hx Parkinson's Disease Endocrine Medical History: Reports: None. Denies: Hx Diabetes Mellitus Type 1, Hx Diabetes Mellitus Type 2 Renal/ Medical History: Reports: None. Denies: Hx Peritoneal Dialysis Malignancy Medical History: Reports None GI Medical History: Reports: None. Denies: Hx Cirrhosis, Hx Hepatitis Musculoskeletal Medical History: Denies Hx Arthritis, Denies Hx Gout, Reports Hx Musculoskeletal Deformity - right hip avascular necrosis Skin Medical History: Reports None, Denies Hx Eczema, Denies Hx Psoriasis Psychiatric Medical History: Reports: Hx Depression Traumatic Medical History: Reports: None Infectious Medical History: Reports: None. Denies: Hx Hepatitis Past Surgical History: Reports: Hx Appendectomy, Hx Vascular Surgery - L port placement, Other - Port placement - Immunizations Immunizations up to date: Yes Hx Diphtheria, Pertussis, Tetanus Vaccination: No Hx Pneumococcal Vaccination: 02/20/11 <KRYSTA TURNER - Last Filed: 10/12/19 19:03> Review of Systems - Review of Systems Constitutional: No symptoms reported EENT: No symptoms reported Cardiovascular: See HPI Respiratory: No symptoms reported Gastrointestinal: No symptoms reported Genitourinary: No symptoms reported Male Genitourinary: No symptoms reported Musculoskeletal: See HPI Skin: No symptoms reported Hematologic/Lymphatic: No symptoms reported Neurological/Psychological: No symptoms reported <KRYSTA TURNER - Last Filed: 10/12/19 19:03> Physical Exam <KRYSTA TURNER - Last Filed: 10/12/19 19:03> - Vital signs Vitals: Pulse Resp BP Pulse Ox 90 18 141/79 H 94 10/12/19 15:09 10/12/19 15:09 10/12/19 15:09 10/12/19 15:09 - Notes Notes: GENERAL: Well-appearing, well-nourished and in no acute distress. HEAD: Atraumatic, normocephalic. EYES: Pupils equal round and reactive to light, extraocular movements intact, sclera anicteric, conjunctiva are normal. ENT: Nares patent, oropharynx clear without exudates. Moist mucous membranes. NECK: Normal range of motion, supple without lymphadenopathy or JVD. LUNGS: Breath sounds clear to auscultation bilaterally and equal. No wheezes rales or rhonchi. HEART: Regular rate and rhythm without murmurs, rubs or gallops. Chest wall nontender. ABDOMEN: Soft, nontender, normoactive bowel sounds. No guarding, no rebound. No masses appreciated. BACK: No cervical, thoracic, lumbar midline tenderness. No saddle anesthesia, normal distal neurovascular exam. GENITOURINARY: Deferred. EXTREMITIES: Normal range of motion, no pitting or edema. No clubbing or cyanosis. NEUROLOGICAL: Cranial nerves II through XII grossly intact. Normal speech, normal gait. PSYCH: Normal mood, normal affect. SKIN: Warm, Dry, normal turgor, no rashes or lesions noted. (KRYSTA TURNER) Course - Laboratory Result Diagrams: 10/12/19 15:50 10/12/19 15:50 - Diagnostic Test Radiology reviewed: Reports reviewed <KRYSTA TURNER - Last Filed: 10/12/19 19:03> - Laboratory Result Diagrams: 10/12/19 15:50 10/12/19 15:50 <TFIF MICHELLE - Last Filed: 10/13/19 00:48> - Re-evaluation Re-evalutation: 10/12/19 21:30 Dr. Medellin called, I discussed the patient with him. He states patient was admitted very recently, based on his evaluation today he is hoping that patient can have a couple of rounds of symptom management and then recommendation is for patient to be discharged home if symptoms can be controlled to follow-up with his car loader. 10/13/19 00:47 Patient has been here for some time receiving fluids, medications, patient now states he feels much better and he is ready to go home. Patient with unremarkable vital signs, no complaints on my evaluation, stable and well- appearing at time of discharge. (TIFF MICHELLE) - Vital Signs Vital signs: Temp Pulse Resp BP Pulse Ox 98.7 F 90 16 135/89 H 96 10/12/19 15:10 10/12/19 15:09 10/12/19 20:01 10/12/19 20:01 10/12/19 20:01 - Laboratory Laboratory results interpreted by me: 10/12/19 10/12/19 15:50 15:50 WBC 11.2 H RBC 2.80 L Hgb 8.7 L Hct 25.5 L RDW 22.9 H Reticulocyte # 0.264 H Retic Count (auto) 9.40 H Potassium 3.5 L Glucose 113 H Calcium 8.0 L Total Bilirubin 2.6 H AST 74 H ALT 64 H - Diagnostic Test Radiology results interpreted by me: 10/12/19 19:06 Chest X-Ray 10/12/19 15:32 IMPRESSION: Unchanged bilateral basilar predominant parenchymal opacities. (KRYSTA TURNER) Discharge <KRYSTA TURNER - Last Filed: 10/12/19 19:03> <TIFF MICHELLE - Last Filed: 10/13/19 00:48> - Discharge Clinical Impression: Sickle cell pain crisis Sickle cell anemia Qualifiers: Sickle-cell associated disorders: with unspecified crisis Qualified Code(s): D57.00 - Hb-SS disease with crisis, unspecified Condition: Stable Disposition: HOME, SELF-CARE Additional Instructions: Follow-up closely with your car loader for additional evaluation and management. Return if you worsen including difficulty breathing, chest pain, vomiting, severe worsening pain, fever, or if something is not right. Referrals: BETH MEDELLIN MD [Primary Care Provider] - Follow up as needed
[2019-10-12] MEDS ORDERED: HYDROMORPHONE HCL INJ/PF 2 MG/ML AMPULE IV ONE ×2 (19:20→21:57)
[2019-10-12] MEDS ORDERED: DIPHENHYDRAMINE HCL 50 MG/ML VIAL IV ONE (19:20)
--- NOTE | 2019-10-13 00:25 | EKG REPORT ---
SEVERITY:- ABNORMAL ECG - SINUS RHYTHM PROBABLE LEFT ATRIAL ABNORMALITY CONSIDER ANTEROSEPTAL INFARCT BORDERLINE T WAVE ABNORMALITIES : Confirmed by: Enedina Traylor 13-Oct-2019 00:24:22
[2019-10-13] MEDS ORDERED: DIPHENHYDRAMINE HCL 50 MG/ML VIAL IV ONE (00:43)
[2019-10-13] MEDS ORDERED: HYDROMORPHONE HCL INJ/PF 2 MG/ML AMPULE IV ONE (00:43)
[2019-10-13 02:32] VITALS: BP 132/96
== END 2019-10-13 02:46 | disposition home or self-care (01) ==
LOC: ER 15:03
DX: D57.00 Hb-SS disease with crisis, unspecified (principal); M25.50 Pain in unspecified joint; R07.9 Chest pain, unspecified; Z88.8 Allergy status to other drugs, medicaments and biological substances
CPT/HCPCS: 93005; 96376; 99284; 96361; 96374; 96375; 36415; 82553; 82550; 85025; 85045; 80053; 84484; 71045; 93010; J1200 ×2; J1170 ×2; J7120

== ENCOUNTER → 2019-10-12 | Outpatient (CLI) | payer MEDICARE, MEDICAID ==
[~2019-10-12] MED LIST changes: +DIPHENHYDRAMINE HCL 25 MG in NORMAL SALINE 50 ML IV PRN; -DIPHENHYDRAMINE HCL 50 MG/ML VIAL IV ONE; -DIPHENHYDRAMINE HCL 50 MG/ML VIAL ONE; -HYDROMORPHONE HCL INJ/PF 2 MG/ML AMPULE IV ONE; +HYDROMORPHONE HCL INJ/PF 2 MG/ML AMPULE IV PRN
[2019-10-12 14:24] VITALS: BP 127/82
== END ==
LOC: ASU 12:23
PROVIDERS: ATTEND Internal Medicine
DX: D57.1 Sickle-cell disease without crisis (principal); E86.0 Dehydration; R52 Pain, unspecified
CPT/HCPCS: J1200; J1170; J1642; 96361; 96365; 96366; 96375

== ENCOUNTER 2019-10-13 08:45 | Outpatient (CLI) | payer MEDICARE, MEDICAID ==
[2019-10-13] MEDS ORDERED: DIPHENHYDRAMINE HCL 25 MG in NORMAL SALINE 50 ML IV PRN (08:51)
[2019-10-13] MEDS ORDERED: NORMAL SALINE 1000 ML 1,000 ML IV PRN (08:51)
[2019-10-13] MEDS ORDERED: HYDROMORPHONE HCL INJ/PF 2 MG/ML AMPULE IV PRN (08:52)
[2019-10-13 09:03] VITALS: BP 114/72
== END 2019-10-13 10:30 | disposition home or self-care (01) ==
LOC: II 08:45 → 5TH 08:47 → II 10:30
PROVIDERS: ATTEND Internal Medicine
DX: D57.1 Sickle-cell disease without crisis (principal); E86.0 Dehydration; R52 Pain, unspecified
CPT/HCPCS: 96365; 96375; 96361; J1200; J1170; J1642

== ENCOUNTER 2019-10-14 08:20 | Outpatient (CLI) | payer MEDICARE, MEDICAID ==
[~2019-10-14 08:20] MED LIST changes: -HYDROMORPHONE HCL INJ/PF 2 MG/ML AMPULE ONE
[2019-10-14 08:34] VITALS: BP 121/86
== END 2019-10-14 09:55 | disposition home or self-care (01) ==
LOC: II 08:20 → 5TH 08:24 → II 09:55
PROVIDERS: ATTEND Internal Medicine
DX: D57.1 Sickle-cell disease without crisis (principal); E86.0 Dehydration; R52 Pain, unspecified
CPT/HCPCS: 96365; 96375; 96361; J1200; J1170; J1642

== ENCOUNTER 2019-10-14 21:12 | Emergency (ER) | payer MEDICARE, MEDICAID ==
[2019-10-14] MEDS ORDERED: DIPHENHYDRAMINE HCL 50 MG/ML VIAL IV ONE (22:01)
[2019-10-14] MEDS ORDERED: NORMAL SALINE 1000 ML 1,000 ML IV ONE (22:01)
[2019-10-14] MEDS ORDERED: HYDROMORPHONE HCL INJ/PF 2 MG/ML AMPULE IV ONE (22:01)
--- NOTE | 2019-10-14 22:05 | ER Document Report ---
ED Medical Screen (RME) - General Chief Complaint: Pain All Over Stated Complaint: SICKLE CELL CRISIS Primary Care Provider: BETH STAPLETON MD [Primary Care Provider] - Follow up as needed Notes: Patient is a 38-year-old -[place] male with a history of sickle cell disorder with a history of acute chest syndrome who sees Dr. Mckenzie goodman approximately 3 times per week for infusions who presents for widespread pains related to sickle cell. He admits to some associated shortness of breath. Denies any chest pain. States this feels typical of his crisis ease. Reports that he normally takes Dilaudid and Benadryl with these crises despite his allergy lists. I have treated and performed a rapid initial assessment of this patient. A comprehensive ED assessment and evaluation of the patient, analysis of test results and completion of medical decision making process will be conducted by additional ED providers. PHYSICAL EXAMINATION: GENERAL: Well-appearing, well-nourished and in no acute distress. A&Ox4. Answers questions appropriately. TRAVEL OUTSIDE OF THE [place] IN LAST 30 DAYS: No - Related Data Allergies/Adverse Reactions: famotidine [From Pepcid] Allergy (Severe, Verified 09/30/19:29) Anaphylaxis ketorolac tromethamine [From Toradol] Allergy (Severe, Verified 09/30/19:) levofloxacin [From Levaquin] Allergy (Severe, Verified 09/30/19:29) meperidine HCl [From Demerol] Allergy (Severe, Verified 09/30/19:29) morphine [Morphine] Allergy (Severe, Verified 09/30/19:29) tramadol HCl [From Ultram] Allergy (Severe, Verified 09/30/19:29) amoxicillin [Amoxicillin] Allergy (Verified 09/30/19:29) fentanyl [Fentanyl] Allergy (Verified 09/30/19:) latex [Latex] Allergy (Verified 09/30/19:29) ondansetron HCl [From Zofran] Allergy (Verified 09/30/19:29) Pork/Porcine Containing Products Allergy (Verified 09/30/19:29) promethazine Allergy (Verified 09/30/19:29) Home Medications: oxycodone. Hydoxy. folic acid Past Medical History - Social History Chew tobacco use (# tins/day): No Frequency of alcohol use: None Drug Abuse: None - Past Medical History Cardiac Medical History: Denies: Hx Atrial Fibrillation, Hx Congestive Heart Failure, Hx Coronary Artery Disease, Hx Heart Attack, Hx Hypertension Pulmonary Medical History: Denies: Hx Asthma, Hx Bronchitis, Hx COPD, Hx Pneumonia, Hx Tuberculosis Neurological Medical History: Denies: Hx Cerebrovascular Accident, Hx Migraine, Hx Seizures, Hx Parkinson's Disease Endocrine Medical History: Denies: Hx Diabetes Mellitus Type 1, Hx Diabetes Mellitus Type 2 Renal/ Medical History: Denies: Hx Peritoneal Dialysis GI Medical History: Denies: Hx Cirrhosis, Hx Hepatitis Musculoskeltal Medical History: Denies Hx Arthritis, Denies Hx Gout, Reports Hx Musculoskeletal Deformity - right hip avascular necrosis Skin Medical History: Denies Hx Eczema, Denies Hx Psoriasis Psychiatric Medical History: Reports: Hx Depression Infectious Medical History: Denies: Hx Hepatitis Past Surgical History: Reports: Hx Appendectomy, Hx Vascular Surgery - L port placement, Other - Port placement - Immunizations Immunizations up to date: Yes Hx Diphtheria, Pertussis, Tetanus Vaccination: No Physical Exam - Vital signs Vitals: Temp Pulse Resp BP Pulse Ox 98.6 F 72 14 131/85 H 93 10/14/19 21:16 10/14/19 21:16 10/14/19 21:16 10/14/19 21:16 10/14/19 21:16 Course - Vital Signs Vital signs: Temp Pulse Resp BP Pulse Ox 98.6 F 72 14 131/85 H 93 10/14/19 21:48 10/14/19 21:16 10/14/19 21:16 10/14/19 21:16 10/14/19 21:16 Doctor's Discharge - Discharge Referrals: BETH STAPLETON MD [Primary Care Provider] - Follow up as needed
--- NOTE | 2019-10-14 22:42 | RADIOLOGY REPORT (SQ) ---
EXAM DESCRIPTION: XR CHEST 1 VIEW COMPLETED DATE/TME: 10/14/2019 22:00 CLINICAL HISTORY: 38 years, Male, sob COMPARISON: 10/12/2019 chest NUMBER OF VIEWS: 1 TECHNIQUE: Portable chest LIMITATIONS: None. FINDINGS: The heart size is stable. Huydbi-s-Rmoa catheter in place. Streaky opacities over each lung base, similar to the prior. No pneumothorax IMPRESSION: Little interval change. copyright 2010 [employer]- All Rights Reserved
[2019-10-15] MEDS ORDERED: HYDROMORPHONE HCL INJ/PF 2 MG/ML AMPULE IV ONE ×4 (01:30→04:51)
[2019-10-15] MEDS ORDERED: DIPHENHYDRAMINE HCL 50 MG/ML VIAL IV ONE (01:30)
[2019-10-15 01:54] LABS: ABSOLUTE BASOPHILS # (AUTO) 0.2 10^3/uL (0.0-0.2); ABSOLUTE EOSINOPHILS # (AUTO) 0.1 10^3/uL (0.0-0.6); ABSOLUTE LYMPHOCYTES (AUTO) 1.1 10^3/uL (0.5-4.7); ABSOLUTE MONOCYTES (AUTO) 1.3 10^3/uL (0.1-1.4); ABSOLUTE NEUT (AUTO) 7.5 10^3/uL (1.7-8.2); ABSOLUTE RETICS # 0.427 10^6/uL (0.028-0.122); BASOPHILS % (AUTO) 1.8 % (0-2); EOSINOPHILS % (AUTO) 1.1 % (0-6); HEMATOCRIT 25.9 % (37.9-51.0); HEMOGLOBIN 8.9 g/dL (13.5-17.0); LYMPHOCYTES % (AUTO) 10.7 % (13-45); MEAN CORPUSCULAR HEMOGLOBIN 32.2 pg (27.0-33.4); MEAN CORPUSCULAR HGB CONC 34.4 g/dL (32.0-36.0); MEAN CORPUSCULAR VOLUME 93 fl (80-97); MONOCYTES % (AUTO) 12.5 % (3-13); PLATELET COUNT 378 10^3/uL (150-450); RED BLOOD COUNT 2.77 10^6/uL (4.35-5.55); RED CELL DISTRIBUTION WIDTH 26.1 % (11.5-14.0); RETICULOCYTE COUNT (AUTO) 15.42 % (0.66-2.85); SEGMENTED NEUTROPHILS % (AUTO) 73.9 % (42-78); TOTAL CELLS COUNTED % (AUTO) 100 %; WHITE BLOOD COUNT 10.1 10^3/uL (4.0-10.5)
--- NOTE | 2019-10-15 01:58 | ER Document Report ---
ED General - General Chief Complaint: Pain All Over Stated Complaint: SICKLE CELL CRISIS Time Seen by Provider: 10/15/19 01:28 Primary Care Provider: BETH STAPLETON MD [Primary Care Provider] - Follow up as needed Mode of Arrival: Ambulatory Information source: Patient TRAVEL OUTSIDE OF THE [place] IN LAST 30 DAYS: No - HPI Onset/Duration: Gradual Quality of pain: Achy Severity: Severe Pain Level: 5 Associated symptoms: None Exacerbated by: Denies Relieved by: Other - somewhat by his at home pain medications Similar symptoms previously: Yes Recently seen / treated by doctor: Yes - seen in this ER on 10/12/19 and [facility] 10[facility]13[facility]19 Notes: 38 year old male with a history of Sickle Cell Anemia and Depression here in the ER for body aches and pains which he feels is consistent with a sickle cell crisis. The patient denies fevers, chills, sweats, nausea, vomiting. The patient is followed by Dr. Stapleton of Hematology and he apparently called the ER ahead of the patient's arrival and said his usual dose of dilaudid is 4mg IV at this point. The patient tells me he took an oxycodone at home before coming to the ER without much relief of his pain. - Related Data Allergies/Adverse Reactions: famotidine [From Pepcid] Allergy (Severe, Verified 09/30/19 01:29) Anaphylaxis ketorolac tromethamine [From Toradol] Allergy (Severe, Verified 09/30/19 01:29) levofloxacin [From Levaquin] Allergy (Severe, Verified 09/30/19:29) meperidine HCl [From Demerol] Allergy (Severe, Verified 09/30/19:29) morphine [Morphine] Allergy (Severe, Verified 09/30/19:29) tramadol HCl [From Ultram] Allergy (Severe, Verified 09/30/19:29) amoxicillin [Amoxicillin] Allergy (Verified 09/30/19:29) fentanyl [Fentanyl] Allergy (Verified 09/30/19:29) latex [Latex] Allergy (Verified 09/30/19:29) ondansetron HCl [From Zofran] Allergy (Verified 09/30/19:29) Pork/Porcine Containing Products Allergy (Verified 06/10/20 01:29) promethazine Allergy (Verified 09/30/19 01:29) Home Medications: oxycodone. Hydoxy. folic acid Past Medical History - General Information source: Patient - Social History Smoking Status: Never Smoker Chew tobacco use (# tins/day): No Frequency of alcohol use: None Drug Abuse: None Family History: Reviewed & Not Pertinent, Hypertension, Other - Sepsis - Past Medical History Cardiac Medical History: Denies: Hx Atrial Fibrillation, Hx Congestive Heart Failure, Hx Coronary Artery Disease, Hx Heart Attack, Hx Hypertension Pulmonary Medical History: Denies: Hx Asthma, Hx Bronchitis, Hx COPD, Hx Pneumonia, Hx Tuberculosis Neurological Medical History: Denies: Hx Cerebrovascular Accident, Hx Migraine, Hx Seizures, Hx Parkinson's Disease Endocrine Medical History: Denies: Hx Diabetes Mellitus Type 1, Hx Diabetes Mellitus Type 2 Renal/ Medical History: Denies: Hx Peritoneal Dialysis GI Medical History: Denies: Hx Cirrhosis, Hx Hepatitis Musculoskeletal Medical History: Denies Hx Arthritis, Denies Hx Gout, Reports Hx Musculoskeletal Deformity - right hip avascular necrosis Skin Medical History: Denies Hx Eczema, Denies Hx Psoriasis Psychiatric Medical History: Reports: Hx Depression Infectious Medical History: Denies: Hx Hepatitis Past Surgical History: Reports: Hx Appendectomy, Hx Vascular Surgery - L port placement, Other - Port placement - Immunizations Immunizations up to date: Yes Hx Diphtheria, Pertussis, Tetanus Vaccination: No Hx Pneumococcal Vaccination: 02/20/11 Review of Systems - Review of Systems Constitutional: No symptoms reported EENT: No symptoms reported Cardiovascular: No symptoms reported Respiratory: No symptoms reported Gastrointestinal: No symptoms reported Genitourinary: No symptoms reported Male Genitourinary: No symptoms reported Musculoskeletal: Other - body pains Skin: No symptoms reported Hematologic/Lymphatic: No symptoms reported Neurological/Psychological: No symptoms reported -: Yes All other systems reviewed and negative Physical Exam - Vital signs Vitals: Temp Pulse Resp BP Pulse Ox 98.6 F 72 14 131/85 H 93 10/14/19 21:16 10/14/19 21:16 10/14/19 21:16 10/14/19 21:16 10/14/19 21:16 - Notes Notes: GENERAL: Well-appearing, well-nourished and in no acute distress. HEAD: Atraumatic, normocephalic. EYES: Pupils equal round and reactive to light, extraocular movements intact, sclera anicteric, conjunctiva are normal. ENT: External ears normal, nares patent, oropharynx clear without exudates. Moist mucous membranes. NECK: Normal range of motion, supple without lymphadenopathy or JVD. LUNGS: Breath sounds clear to auscultation bilaterally and equal. No wheezes rales or rhonchi. HEART: Regular rate and rhythm without murmurs, rubs or gallops. ABDOMEN: Soft, nontender, normoactive bowel sounds. No guarding, no rebound. No masses appreciated. EXTREMITIES: Normal range of motion, no pitting or edema. No clubbing or cyanosis. NEUROLOGICAL: Cranial nerves II through XII grossly intact. Normal speech, normal gait. PSYCH: Normal mood, normal affect. SKIN: Warm, Dry, normal turgor, no rashes or lesions noted. Course - Re-evaluation Re-evalutation: 10/15/19 02:02 The patient is here for a typical sickle cell crisis. The patient is usually treated with large doses of dilaudid based on previous ER visit and his Java Project Manager Dr. Stapleton who called the ER to give us a heads up about him coming in this evening. The patient denies recent fevers, chills, sweats, nausea, vomiting, chest pain, trouble breathing. Plan will be to get the patient's pain under control and discharge him assuming his labs are unremarkable. 10/15/19 04:44 The patient was given 1mg of dilaudid out front after his MSE. I ordered an additional 3mg of dilaudid. The patient was then redosed with 1mg of dilaudid and this controlled his pain. Patient was DCed and told to follow up with his Java Project Manager. Patient's labs are baseline for him and patient is not having signs or symptoms of acute chest today. - Vital Signs Vital signs: Temp Pulse Resp BP Pulse Ox 98.6 F 72 13 145/93 H 100 10/14/19 21:48 10/14/19 21:16 10/15/19 04:01 10/15/19 04:01 10/15/19 04:01 - Laboratory Result Diagrams: 10/15/19 01:39 10/15/19 01:39 Laboratory results interpreted by me: 10/15/19 10/15/19 10/15/19 01:39 01:39 01:39 RBC 2.77 L Hgb 8.9 L Hct 25.9 L RDW 26.1 H Lymph % (Auto) 10.7 L Reticulocyte # 0.427 H Retic Count (auto) 15.42 H BUN 6 L Total Bilirubin 1.9 H Lactate Dehydrogenase 508 H Total Protein 8.4 H - Diagnostic Test Radiology reviewed: Image reviewed, Reports reviewed - EKG Interpretation by Me EKG shows normal: Sinus rhythm, [place], Intervals, QRS Complexes, ST-T Waves Rate: Normal Rhythm: NSR When compared to previous EKG there are: No significant change Additional EKG results interpreted by me: 10/15/19 02:05 PVCs noted, T wave inversions in III Discharge - Discharge Clinical Impression: Sickle cell pain crisis Condition: Stable Disposition: HOME, SELF-CARE Instructions: Sickle Cell Crisis ([facility]) Additional Instructions: Follow up with your Java Project Manager. Use your previously prescribed pain medications and sickle cell medications. Referrals: BETH STAPLETON MD [Primary Care Provider] - Follow up as needed
[2019-10-15 02:11] LABS: ALBUMIN 4.4 g/dL (3.5-5.0); ALKALINE PHOSPHATASE 89 U/L (38-126); ANION GAP 7 (5-19); ASPARTATE AMINO TRANSFERASE 45 U/L (17-59); BILIRUBIN,TOTAL 1.9 mg/dL (0.2-1.3); BLOOD UREA NITROGEN 6 mg/dL (7-20); CALCIUM 8.8 mg/dL (8.4-10.2); CARBON DIOXIDE 26 mmol/L (22-30); CHLORIDE 106 mmol/L (98-107); GLUCOSE 94 mg/dL (75-110); POTASSIUM 3.8 mmol/L (3.6-5.0); TOTAL PROTEIN 8.4 g/dL (6.3-8.2)
[2019-10-15 02:16] LABS: ANISOCYTOSIS 3+; OVALOCYTES SLIGHT; POIKILOCYTOSIS 1+; SCHISTOCYTES SLIGHT; SICKLE RED CELLS SLIGHT; TARGET CELLS SLIGHT
[2019-10-15 02:17] LABS: PLATELET COMMENT ADEQUATE; POLYCHROMASIA 1+; TOXIC GRANULATION SLIGHT
[2019-10-15 05:05] VITALS: BP 153/96
--- NOTE | 2019-10-15 10:01 | EKG REPORT ---
SEVERITY:- ABNORMAL ECG - SINUS RHYTHM VENTRICULAR PREMATURE COMPLEX INTERPOLATED VENTRICULAR PREMATURE COMPLEX CONSIDER ANTEROSEPTAL INFARCT : Confirmed by: Enedina Traylor 15-Oct-2019 09:59:26
== END 2019-10-15 05:30 | disposition home or self-care (01) ==
LOC: ER 21:12
DX: D57.00 Hb-SS disease with crisis, unspecified (principal); F32.9 Major depressive disorder, single episode, unspecified; Z79.899 Other long term (current) drug therapy; Z88.8 Allergy status to other drugs, medicaments and biological substances; Z88.0 Allergy status to penicillin; Z88.1 Allergy status to other antibiotic agents
CPT/HCPCS: 93005; 36591; 96376; 99284; 96361; 96374; 96375; 36415; 83615; 85025; 85045; 80053; 71045; 93010; J1200; J1170; J7030; J1642

== ENCOUNTER 2019-10-15 07:48 | Outpatient (CLI) | payer MEDICARE, MEDICAID ==
[2019-10-15 07:59] VITALS: BP 127/85
[2019-10-15] MEDS: NORMAL SALINE 1000 ML 2,000 ML IV PRN ×2 (07:59→10:00)
[2019-10-15] MEDS ORDERED: HYDROMORPHONE HCL INJ/PF 2 MG/ML AMPULE IV PRN ×4 (08:00→10:20)
== END 2019-10-15 12:17 | disposition home or self-care (01) ==
LOC: II 07:48 → 5TH 07:51 → II 12:17
PROVIDERS: ATTEND Internal Medicine
DX: D57.1 Sickle-cell disease without crisis (principal); E86.0 Dehydration; R52 Pain, unspecified
CPT/HCPCS: 96365; 96375; 96361; J1200; J1170; J1642

== ENCOUNTER 2019-10-16 07:37 | Outpatient (CLI) | payer MEDICARE, MEDICAID ==
[~2019-10-16 07:37] MED LIST changes: -NORMAL SALINE 1000 ML 1,000 ML IV PRN
[2019-10-16] MEDS: NORMAL SALINE 1000 ML 1,000 ML IV PRN ×2 (07:48→10:26)
[2019-10-16 07:57] VITALS: BP 133/86
[2019-10-16] MEDS ORDERED: NORMAL SALINE 1000 ML 2,000 ML IV PRN (07:57)
[2019-10-16] MEDS ORDERED: HYDROMORPHONE HCL INJ/PF 2 MG/ML AMPULE IV PRN (07:59)
== END 2019-10-16 12:10 | disposition home or self-care (01) ==
LOC: II 07:37 → 5TH 07:39 → II 12:10
PROVIDERS: ATTEND Internal Medicine
DX: D57.1 Sickle-cell disease without crisis (principal); E86.0 Dehydration; R52 Pain, unspecified
CPT/HCPCS: 96365; 96375; 96361; J1200; J1170; J1642

== ENCOUNTER 2019-10-16 15:16 | Inpatient (IN) | payer MEDICARE, MEDICAID ==
[2019-10-16] MEDS ORDERED: HYDROMORPHONE HCL INJ/PF 2 MG/ML AMPULE IV ONE ×2 (17:15→20:45)
[2019-10-16] MEDS ORDERED: NORMAL SALINE 1000 ML 1,000 ML IV ONE (17:15)
--- NOTE | 2019-10-16 17:20 | ER Document Report ---
ED Medical Screen (RME) - General Chief Complaint: Sickle Cell Crisis Stated Complaint: SICKLE CELL CRISIS Time Seen by Provider: 10/16/19 17:10 Primary Care Provider: BETH STAPLETON MD [Primary Care Provider] - Follow up as needed Notes: Patient is a 38-year-old male with a history of sickle cell disease, well-known to our emergency department who presents to the emergency department with a sickle cell pain crisis. Patient states that his pain is in his joints and muscles. His last dose of oxycodone was around noon. Patient states that he is now starting to feel a little faint. Denies any chest pain or difficulty breathing. States that he feels he needs oxygen. Dr. Stapleton has called the emergency department and states that he wants the patient to have 4 mg of Dilaudid for his pain. The patient is requesting that we only order 3 mg, because he states, "it makes me feel weird." Exam: Patient appears to be in pain. I have greeted and performed a rapid initial assessment of this patient. A co mprehensive ED assessment and evaluation of the patient, analysis of test results and completion of medical decision making process will be conducted by an additional ED providers. TRAVEL OUTSIDE OF THE [place] IN LAST 30 DAYS: No - Related Data Allergies/Adverse Reactions: famotidine [From Pepcid] Allergy (Severe, Verified 09/30/19 01:29) Anaphylaxis ketorolac tromethamine [From Toradol] Allergy (Severe, Verified 09/30/19 01:29) levofloxacin [From Levaquin] Allergy (Severe, Verified 09/30/19:29) meperidine HCl [From Demerol] Allergy (Severe, Verified 09/30/19:29) morphine [Morphine] Allergy (Severe, Verified 09/30/19:29) tramadol HCl [From Ultram] Allergy (Severe, Verified 09/30/19:29) amoxicillin [Amoxicillin] Allergy (Verified 09/30/19:29) fentanyl [Fentanyl] Allergy (Verified 09/30/19:29) latex [Latex] Allergy (Verified 09/30/19:29) ondansetron HCl [From Zofran] Allergy (Verified 09/30/19:29) Pork/Porcine Containing Products Allergy (Verified 06/10/20 01:29) promethazine Allergy (Verified 09/30/19 01:29) Past Medical History - Social History Frequency of alcohol use: None Drug Abuse: None - Past Medical History Cardiac Medical History: Denies: Hx Atrial Fibrillation, Hx Congestive Heart Failure, Hx Coronary Artery Disease, Hx Heart Attack, Hx Hypertension Pulmonary Medical History: Denies: Hx Asthma, Hx Bronchitis, Hx COPD, Hx Pneumonia, Hx Tuberculosis Neurological Medical History: Denies: Hx Cerebrovascular Accident, Hx Migraine, Hx Seizures, Hx Parkinson's Disease Endocrine Medical History: Denies: Hx Diabetes Mellitus Type 1, Hx Diabetes Mellitus Type 2 Renal/ Medical History: Denies: Hx Peritoneal Dialysis GI Medical History: Denies: Hx Cirrhosis, Hx Hepatitis Musculoskeltal Medical History: Denies Hx Arthritis, Denies Hx Gout, Reports Hx Musculoskeletal Deformity - right hip avascular necrosis Skin Medical History: Denies Hx Eczema, Denies Hx Psoriasis Psychiatric Medical History: Reports: Hx Depression Infectious Medical History: Denies: Hx Hepatitis Past Surgical History: Reports: Hx Appendectomy, Hx Vascular Surgery - L port placement, Other - Port placement - Immunizations Immunizations up to date: Yes Hx Diphtheria, Pertussis, Tetanus Vaccination: No Physical Exam - Vital signs Vitals: Temp Pulse Resp BP Pulse Ox 99.1 F 80 16 138/86 H 93 10/16/19 16:07 10/16/19 16:07 10/16/19 16:07 10/16/19 16:07 10/16/19 16:07 Course - Vital Signs Vital signs: Temp Pulse Resp BP Pulse Ox 99.1 F 80 16 138/86 H 93 10/16/19 16:07 10/16/19 16:07 10/16/19 16:07 10/16/19 16:07 10/16/19 16:07 Doctor's Discharge - Discharge Referrals: BETH STAPLETON MD [Primary Care Provider] - Follow up as needed
[2019-10-16] MEDS ORDERED: NORMAL SALINE 1000 ML 1,000 ML IV PRN (20:27)
[2019-10-16] MEDS ORDERED: DIPHENHYDRAMINE HCL 50 MG/ML VIAL ONE (20:34)
[2019-10-16] MEDS ORDERED: DIPHENHYDRAMINE HCL 50 MG/ML VIAL IV ONE (20:36)
[2019-10-16 20:44] LABS: ABSOLUTE RETICS # 0.346 10^6/uL (0.028-0.122); HEMATOCRIT 26.1 % (37.9-51.0); HEMOGLOBIN 8.8 g/dL (13.5-17.0); MEAN CORPUSCULAR HEMOGLOBIN 32.3 pg (27.0-33.4); MEAN CORPUSCULAR HGB CONC 33.8 g/dL (32.0-36.0); MEAN CORPUSCULAR VOLUME 96 fl (80-97); PLATELET COUNT 386 10^3/uL (150-450); RED BLOOD COUNT 2.73 10^6/uL (4.35-5.55); RETICULOCYTE COUNT (AUTO) 12.69 % (0.66-2.85); WHITE BLOOD COUNT 10.4 10^3/uL (4.0-10.5)
[2019-10-16 20:56] LABS: ALBUMIN 4.6 g/dL (3.5-5.0); ALKALINE PHOSPHATASE 86 U/L (38-126); ANION GAP 8 (5-19); ASPARTATE AMINO TRANSFERASE 35 U/L (17-59); BILIRUBIN,DIRECT 0.1 mg/dL (0.0-0.4); BILIRUBIN,TOTAL 2.1 mg/dL (0.2-1.3); BLOOD UREA NITROGEN 6 mg/dL (7-20); CALCIUM 9.2 mg/dL (8.4-10.2); CARBON DIOXIDE 26 mmol/L (22-30); CHLORIDE 102 mmol/L (98-107); GLUCOSE 99 mg/dL (75-110); POTASSIUM 3.8 mmol/L (3.6-5.0); TOTAL PROTEIN 8.8 g/dL (6.3-8.2)
[2019-10-16 21:06] LABS: ABSOLUTE LYMPHOCYTES# (MANUAL) 1.2 10^3/uL (0.5-4.7); ABSOLUTE MONOCYTES # (MANUAL) 0.7 10^3/uL (0.1-1.4); BASOPHILS % (MANUAL) 0 % (0-2); EOSINOPHILS % (MANUAL) 0 % (0-6); LYMPHOCYTES % (MANUAL) 12 % (13-45); MONOCYTES % (MANUAL) 7 % (3-13); NUCLEATED RED BLOOD CELLS 4 /100 WBC (0); SEGMENTED NEUTROPHILS % (MAN) 81 % (42-78); TOTAL CELLS COUNTED 100
[2019-10-16 21:09] LABS: ANISOCYTOSIS 3+; BURR CELLS SLIGHT; OVALOCYTES 1+; PLATELET COMMENT ADEQUATE; POIKILOCYTOSIS 1+; POLYCHROMASIA 2+; SCHISTOCYTES SLIGHT; SICKLE RED CELLS SLIGHT; TARGET CELLS 1+; TEAR DROP CELLS SLIGHT
--- NOTE | 2019-10-16 21:19 | ER Document Report ---
ED General Pain - General Chief Complaint: Sickle Cell Crisis Stated Complaint: SICKLE CELL CRISIS Time Seen by Provider: 10/16/19 17:10 Primary Care Provider: BETH STAPLETON MD [Primary Care Provider] - Follow up as needed Notes: 38-year-old male presented to ED for complaint of pain to his abdomen his liver and all of his joints. He states he is a sickle cell crisis patient and he had talked with Dr. Mckenzie goodman and they stated that he should be admitted for pain control. I did spoke with Dr. Bo who has agreed to admit the patient to his services. He will be admitted to the medical floor. TRAVEL OUTSIDE OF THE [place] IN LAST 30 DAYS: No - HPI Onset: Other - Is a chronic pain due to sickle cell anemia Quality of pain: Cramping, Sharp Severity: Severe Pain Level: 5 Context: General body pain Typical of prior episodes of painful crisis: Yes Genotype: SS Associated symptoms: None Exacerbated by: Movement Relieved by: Denies Similar symptoms previously: Yes Recently seen / treated by doctor: Yes - Related Data Allergies/Adverse Reactions: famotidine [From Pepcid] Allergy (Severe, Verified 09/30/19:29) Anaphylaxis ketorolac tromethamine [From Toradol] Allergy (Severe, Verified 09/30/19:) levofloxacin [From Levaquin] Allergy (Severe, Verified 09/30/19:) meperidine HCl [From Demerol] Allergy (Severe, Verified 09/30/19:29) morphine [Morphine] Allergy (Severe, Verified 09/30/19:) tramadol HCl [From Ultram] Allergy (Severe, Verified 09/30/19:29) amoxicillin [Amoxicillin] Allergy (Verified 09/30/19:29) fentanyl [Fentanyl] Allergy (Verified 09/30/19:) latex [Latex] Allergy (Verified 09/30/19:) ondansetron HCl [From Zofran] Allergy (Verified 09/30/19:) Pork/Porcine Containing Products Allergy (Verified 09/30/19:) promethazine Allergy (Verified 09/30/19:) Past Medical History - General Information source: Patient - Social History Smoking Status: Never Smoker Frequency of alcohol use: None Drug Abuse: None Lives with: Family Family History: Reviewed & Not Pertinent, Hypertension, Other - Sepsis - Medical History Medical History: Other - Sickle cell anemia with chronic pain to all areas - Past Medical History Cardiac Medical History: Reports: None Pulmonary Medical History: Reports: None Endocrine Medical History: Reports: None Renal/ Medical History: Reports: None. Denies: Hx Peritoneal Dialysis Malignancy Medical History: Reports None GI Medical History: Reports: Other - Sickle cell anemia with abdominal pain Musculoskeletal Medical History: Reports Hx Musculoskeletal Deformity - right hi p avascular necrosis, Reports Other - Sickle cell with pain to all joints Skin Medical History: Reports None Psychiatric Medical History: Reports: Hx Depression Traumatic Medical History: Reports: None Past Surgical History: Reports: Hx Appendectomy, Hx Vascular Surgery - L port placement, Other - Port placement - Immunizations Immunizations up to date: Yes Hx Diphtheria, Pertussis, Tetanus Vaccination: No Hx Pneumococcal Vaccination: 02/20/11 Review of Systems - Review of Systems Notes: Patient is in generalized pain more so in the stomach and all the joints due to his sickle cell anemia Constitutional: No symptoms reported EENT: No symptoms reported Cardiovascular: No symptoms reported Respiratory: No symptoms reported Gastrointestinal: No symptoms reported Genitourinary: No symptoms reported Male Genitourinary: No symptoms reported Musculoskeletal: No symptoms reported Skin: No symptoms reported Hematologic/Lymphatic: No symptoms reported Neurological/Psychological: No symptoms reported -: Yes All other systems reviewed and negative Physical Exam - Vital signs Vitals: Temp Pulse Resp BP Pulse Ox 99.1 F 80 16 138/86 H 93 10/16/19 16:07 10/16/19 16:07 10/16/19 16:07 10/16/19 16:07 10/16/19 16:07 - Extremities General upper extremity: Normal color, Normal ROM, Normal temperature, Other - Patient has pain in all of his joints due to sickle cell anemia General lower extremity: Nontender, Normal color, Normal ROM, Normal temperature, Normal weight bearing, Other - Patient has pain in all joints due to his sickle cell anemia. No: Herber's sign - Psychological Associated symptoms: Normal affect, Normal mood, Other - Patient very concerned because of his chronic pain with an occasional exacerbation of sickle cell pain Course - Re-evaluation Re-evalutation: 10/16/19 21:[address] Bo who has accepted the patient for admission. I did speak with Dr. Simpson who stated that she had spoken to Dr. NGUYEN and he does need admitted for his chronic pain. - Vital Signs Vital signs: Temp Pulse Resp BP Pulse Ox 99.1 F 80 16 138/86 H 100 10/16/19 16:07 10/16/19 16:07 10/16/19 16:07 10/16/19 16:07 10/16/19 19:46 - Laboratory Result Diagrams: 10/16/19 20:20 10/16/19 20:20 Laboratory results interpreted by me: 10/16/19 10/16/19 20:20 20:20 RBC 2.73 L Hgb 8.8 L Hct 26.1 L RDW 25.0 H Reticulocyte # 0.346 H Seg Neuts % (Manual) 81 H Lymphocytes % (Manual) 12 L Abs Neuts (Manual) 8.4 H Retic Count (auto) 12.69 H Sodium 135.5 L BUN 6 L Total Bilirubin 2.1 H Total Protein 8.8 H Discharge - Discharge Clinical Impression: Sickle cell pain crisis, Sickle-cell disease with pain Disposition: ADMITTED INPATIENT Admitting Provider: Betzy (Hospitalist) Unit Admitted: Medical Floor Referrals: BETH STAPLETON MD [Primary Care Provider] - Follow up as needed
[2019-10-16] MEDS ORDERED: MAGNESIUM HYDROXIDE SUSP 30 ML UDCUP PO PRN (21:49)
[2019-10-16] MEDS ORDERED: GUAIFENESIN SYRP 200 MG/10 ML UDC PO PRN (21:49)
[2019-10-16] MEDS ORDERED: HYDROMORPHONE HCL INJ/PF 2 MG/ML AMPULE IV PRN ×5 (21:49→22:30)
[2019-10-16] MEDS ORDERED: MELATONIN 5 MG TABLET PO PRN (21:49)
[2019-10-16] MEDS ORDERED: LORAZEPAM INJ 2 MG/1 ML VIAL IV PRN (21:49)
[2019-10-16] MEDS ORDERED: ACETAMINOPHEN 325 MG TABLET PO PRN (21:49)
[2019-10-16] MEDS ORDERED: HYDRALAZINE HCL INJ/PF 20 MG/1 ML SDV IV PRN (21:49)
[2019-10-16] MEDS ORDERED: MAG HYDROX/AL HYDROX/SIMETH SUSP 30 ML UDCUP PO PRN (21:49)
[2019-10-16] MEDS ORDERED: DIPHENHYDRAMINE HCL 50 MG/ML VIAL IV PRN ×2 (21:52→23:31)
[2019-10-16] MEDS: HYDROMORPHONE HCL INJ/PF 2 MG/ML AMPULE IV PRN (22:43)
[2019-10-16 23:18] LABS: APPEARANCE,URINE CLEAR; BILIRUBIN,URINE NEGATIVE (NEGATIVE); COLOR,URINE STRAW; GLUCOSE, URINE NEGATIVE (NEGATIVE); KETONES,URINE 20 mg/dL (NEGATIVE); LEUKOCYTE ESTERASE,URINE NEGATIVE (NEGATIVE); NITRITE,URINE NEGATIVE (NEGATIVE); PROTEIN,URINE NEGATIVE (NEGATIVE); URINE SPECIFIC GRAVITY 1.006; UROBILINOGEN,URINE NEGATIVE mg/dL (<2.0)
--- NOTE | 2019-10-16 23:35 | PDOC H&P ---
History of Present Illness Admission Date/PCP: 10/16/2019 21:24 BETH STAPLETON MD Patient complains of: Generalized pain History of Present Illness: MARISA GARBER is a 38 year old male who presents the emergency room with a one-week history of generalized pain. He admits constant, severe deep aching pain in the bones, muscles and joints of all of his extremities as well as generalized severe, constant colicky abdominal pain with somewhat more intense pain in the right upper quadrant. His pain has been gradually worsening over the last week despite numerous office visits and ER visits for IV fluids and narcotic analgesics. His pain is been accompanied by lightheadedness and associated with increasing dyspnea over the last 24 hours. He denies other a ssociated or accompanying signs and symptoms. His pain is increased with activity and reduced by oral oxycodone, IV fluids and IV Dilaudid. He admits numerous prior similar episodes related to his sickle cell disease. In the emergency room he was found to have a reticulocyte count of 12.69 and the emergency room provider received instructions from Dr. 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 Patient was subsequently admitted to the hospital for further evaluation treatment. Past Medical History Cardiac Medical History: Denies: Atrial Fibrillation, Congestive Heart Failure, Coronary Artery Disease, DVT, Myocardial Infarction, Hyperlipidema, Hypertension, Peripheral Vascular Disease, Pulmonary Embolism Pulmonary Medical History: Denies: Asthma, Bronchitis, Chronic Obstructive Pulmonary Disease (COPD), Pneumonia, Respiratory Failure, Tuberculosis EENT Medical History: Reports: Eyes - Prescription eyeglasses Denies: Cataracts, Ears - Hearing aids Neurological Medical History: Denies: Hemorrhagic CVA, Ischemic CVA, Migraine, Seizures Endocrine Medical History: Denies: Diabetes Mellitus Type 1, Diabetes Mellitus Type 2, Hyperthyroidism, Hypothyroidism, Obesity Renal/ Medical History: Denies: Chronic Kidney Disease, Nephrolithiasis Malignancy Medical History: Reports: None GI Medical History: Denies: Cirrhosis, Crohn's Disease, Gastroesophageal Reflux Disease, Hepa titis, Peptic Ulcer Disease, Ulcerative Colitis Musculoskeltal Medical History: Denies: Arthritis, Gout Skin Medical History: Denies: Eczema, Psoriasis Psychiatric Medical History: Reports: Depression Denies: Alcohol Dependency, Substance Abuse, Tobacco Dependency Traumatic Medical History: Reports: None Hematology: Reports: Anemia, Sickle Cell Disease Denies: Hemophilia, Bleeding Tendencies Infectious Medical History: Reports: None Past Surgical History Past Surgical History: Reports: Appendectomy, Vascular Surgery - L port placement Social History Information Source: Patient Lives with: Family Smoking Status: Never Smoker Electronic Cigarette use?: No Frequency of Alcohol Use: None Hx Recreational Drug Use: No Drugs: None Hx Prescription Drug Abuse: No - Advance Directive Resuscitation Status: Full Code Surrogate healthcare decision maker:: Killian Garber Family History Family History: Hypertension, Other - Sickle cell anemia. denies: CAD, DM, Malignancy Parental Family History Reviewed: Yes Children Family History Reviewed: No Sibling(s) Family History Reviewed.: Yes Medication/Allergy Home Medications: Folic Acid [Folvite 1 mg Tablet] 1 mg PO DAILY 02/19/19 Hydroxyurea [Hydrea 500 mg Capsule] 1,500 mg PO DAILY 02/19/19 Oxycodone HCl [Oxy-Ir 5 mg Tablet] 10 mg PO Q4HP PRN 02/19/19 Allergies/Adverse Reactions: famotidine [From Pepcid] Allergy (Severe, Verified 09/30/19:29) Anaphylaxis ketorolac tromethamine [From Toradol] Allergy (Severe, Verified 09/30/19:29) levofloxacin [From Levaquin] Allergy (Severe, Verified 09/30/19:29) meperidine HCl [From Demerol] Allergy (Severe, Verified 09/30/19:29) morphine [Morphine] Allergy (Severe, Verified 09/30/19:29) tramadol HCl [From Ultram] Allergy (Severe, Verified 09/30/19:29) amoxicillin [Amoxicillin] Allergy (Verified 09/30/19:29) fentanyl [Fentanyl] Allergy (Verified 09/30/19:29) latex [Latex] Allergy (Verified 09/30/19:29) ondansetron HCl [From Zofran] Allergy (Verified 09/30/19:29) Pork/Porcine Containing Products Allergy (Verified 09/30/19:29) promethazine Allergy (Verified 09/30/19:) Review of Systems Constitutional: ABSENT: chills, fever(s) Eyes: ABSENT: visual disturbances, other - Eye pain Ears: ABSENT: hearing changes, other - Ear pain Nose, Mouth, and Throat: ABSENT: headache(s), sore throat Cardiovascular: PRESENT: other - Lightheadedness. ABSENT: chest pain, palpitations Respiratory: PRESENT: as per HPI, dyspnea Gastrointestinal: PRESENT: as per HPI, abdominal pain. ABSENT: constipation, diarrhea, nausea, vomiting Genitourinary: ABSENT: dysuria, hematuria Musculoskeletal: PRESENT: as per HPI, other - Generalized muscle and joint pain in all extremities. ABSENT: joint swelling Integumentary: ABSENT: pruritus, rash Neurological: ABSENT: confusion, convulsions, focal weakness, memory loss, syncope Psychiatric: ABSENT: anxiety, depression Endocrine: ABSENT: cold intolerance, heat intolerance Hematologic/Lymphatic: ABSENT: easy bleeding, easy bruising Allergic/Immunologic: ABSENT: seasonal rhinorrhea Physical Exam Vital Signs: Temp Pulse Resp BP Pulse Ox 99.1 F 80 16 138/86 H 100 10/16/19 16:07 10/16/19 16:07 10/16/19 16:07 10/16/19 16:07 10/16/19 19:46 Intake & Output 10/14/19 10/15/19 10/16/19 23:59 23:59 23:59 Weight 85.2 kg General appearance: PRESENT: cooperative, mild distress - Secondary to pain Head exam: PRESENT: atraumatic, normocephalic Eye exam: PRESENT: conjunctiva pink. ABSENT: conjunctival injection, scleral icterus Ear exam: PRESENT: normal external ear exam. ABSENT: bleeding, drainage Mouth exam: PRESENT: dry mucosa, neck supple Neck exam: ABSENT: thyromegaly, tracheal deviation Respiratory exam: PRESENT: clear to auscultation anastasiya, symmetrical, unlabored Cardiovascular exam: PRESENT: RRR. ABSENT: clicks, gallop, rubs Pulses: PRESENT: normal radial pulses, normal dorsalis pedis pul Vascular exam: PRESENT: normal capillary refill. ABSENT: pallor GI/Abdominal exam: PRESENT: normal bowel sounds, soft, tenderness - Generalized tenderness on deep palpation greatest in right upper quadrant without localization Rectal exam: PRESENT: deferred Extremities exam: PRESENT: full ROM - Painful range of motion in all extremities.. ABSENT: joint swelling, pedal edema Musculoskeletal exam: PRESENT: tenderness - General tenderness to palpation over all surfaces of all extremities. ABSENT: deformity, dislocation Neurological exam: PRESENT: alert, oriented to person, oriented to place, oriented to time, oriented to situation, CN II-XII grossly intact. ABSENT: motor sensory deficit Psychiatric exam: PRESENT: appropriate affect, depressed Skin exam: PRESENT: dry, intact, warm. ABSENT: jaundice, rash, urticaria Results Laboratory Results: 10/16/19 20:20 10/16/19 20:20 10/16/19 10/16/19 20:20 20:20 WBC 10.4 RBC 2.73 L Hgb 8.8 L Hct 26.1 L MCV 96 MCH 32.3 MCHC 33.8 RDW 25.0 H Plt Count 386 Seg Neutrophils % Not Reportable Retic Count (auto) 12.69 H Sodium 135.5 L Potassium 3.8 Chloride 102 Carbon Dioxide 26 Anion Gap 8 BUN 6 L Creatinine 0.60 Est GFR ( Amer) > 60 Glucose 99 Calcium 9.2 Total Bilirubin 2.1 H AST 35 Alkaline Phosphatase 86 Total Protein 8.8 H Albumin 4.6 Assessment and Plan - Diagnosis (1) Sickle cell crisis Is this a current diagnosis for this admission?: Yes (2) Polyarthralgia Is this a current diagnosis for this admission?: Yes (3) Dyspnea Qualifiers: Dyspnea type: shortness of breath Qualified Code(s): R06.02 - Shortness of breath; R06.00 - Dyspnea, unspecified; R06.01 - Orthopnea Is this a current diagnosis for this admission?: Yes (4) Abdominal pain Qualifiers: Abdominal location: generalized Qualified Code(s): R10.84 - Generalized abdominal pain Is this a current diagnosis for this admission?: Yes - Plan Summary Summary: Patient will be admitted to the medical floor where he will receive routine supportive and symptomatic cares. He will be administered IV fluid utilizing lactated Ringer's solution at 167 mL/h. He will receive Dilaudid intravenously 2 to 4 mg every 2 hours using a sliding scale for dosing. He will receive supplemental oxygen as required to maintain an adequate oxygen saturation and relieve his sense of dyspnea. Dr. Stapleton will be consulted for evaluation and recommendations for ongoing therapy. Patient will be on a regular diet as tolerated. CBCs, metabolic profiles and magnesium levels will be obtained as appropriate. Additional laboratory evaluations and/or radiographic investigations will be undertaken as needed. - Time Time Spent with patient: 15-24 minutes Medications reviewed and adjusted accordingly: Yes Anticipated discharge: Home - Inpatient Certification Based on my medical assessment, after consideration of the patient's comorbidities, presenting symptoms, or acuity I expect that the services needed warrant INPATIENT care.: Yes I certify that my determination is in accordance with my understanding of Medicare's requirements for reasonable and necessary INPATIENT services [42 CFR 412.3e].: Yes Medical Necessity: Failure to Improve With Outpatient Therapy, Need Close Monitoring Due to Risk of Patient Decompensation, Need For IV Fluids, Need for Pain Control, Risk of Complication if Not Cared For in Hospital
[2019-10-17] MEDS: HYDROMORPHONE HCL INJ/PF 2 MG/ML AMPULE IV PRN ×11 (00:34→22:44)
[2019-10-17] MEDS ORDERED: DIPHENHYDRAMINE HCL 50 MG/ML VIAL IV SCH (02:00)
[2019-10-17] MEDS: DIPHENHYDRAMINE HCL 50 MG/ML VIAL IV PRN ×5 (04:28→22:46)
[2019-10-17] MEDS: RINGERS SOLUTION,LACTATED 1,000 ML IV PRN ×5 (05:11→23:23)
[2019-10-17 07:23] LABS: HEMATOCRIT 25.4 % (37.9-51.0); HEMOGLOBIN 8.7 g/dL (13.5-17.0); MEAN CORPUSCULAR HEMOGLOBIN 32.6 pg (27.0-33.4); MEAN CORPUSCULAR HGB CONC 34.1 g/dL (32.0-36.0); MEAN CORPUSCULAR VOLUME 96 fl (80-97); PLATELET COUNT 351 10^3/uL (150-450); RED BLOOD COUNT 2.66 10^6/uL (4.35-5.55); RED CELL DISTRIBUTION WIDTH 24.7 % (11.5-14.0); WHITE BLOOD COUNT 8.2 10^3/uL (4.0-10.5)
[2019-10-17 07:40] LABS: ANION GAP 7 (5-19); BLOOD UREA NITROGEN 7 mg/dL (7-20); CALCIUM 8.8 mg/dL (8.4-10.2); CARBON DIOXIDE 28 mmol/L (22-30); CHLORIDE 102 mmol/L (98-107); GLUCOSE 110 mg/dL (75-110); POTASSIUM 4.2 mmol/L (3.6-5.0)
[2019-10-17] MEDS ORDERED: FONDAPARINUX SODIUM INJ 2.5 MG/0.5 ML DISP.SYRIN SUBCUT SCH (10:00)
[2019-10-17] MEDS ORDERED: DOCUSATE SODIUM 100 MG CAPSULE PO SCH (10:00)
[2019-10-17] MEDS ORDERED: POLYETHYLENE GLYCOL 3350 POWDER 17 GM/1 PACKET PO SCH (10:00)
[2019-10-17] MEDS: HYDROXYUREA 500 MG CAPSULE PO SCH (10:39)
[2019-10-17] MEDS: FOLIC ACID 1 MG TABLET PO SCH (10:39)
--- NOTE | 2019-10-17 12:53 | PDOC CONSULTATION ---
Consultation Consult Date: 10/17/19 Attending physician:: BETH MEDELLIN Provider Consulted: TONI BERRY Consult reason:: hematology/Oncology consultation was requested for patient with sickle cell pain crisis. History of Present Illness Admission Date/PCP: 10/16/19 22:05 BETH MEDELLIN MD History of Present Illness: MARISA GARBER is a 38 year old male followed by Dr. Medellin for Sickle Cell anemia who presents the emergency room with a one-week history of generalized pain. He admits constant, severe deep aching pain in the bones, muscles and joints of all of his extremities as well as generalized severe, constant colicky abdominal pain with somewhat more intense pain in the right upper quadrant. His pain has been gradually worsening over the last week despite numerous office visits and ER visits for IV fluids and narcotic analgesics. His pain is been accompanied by lightheadedness and associated with increasing dyspnea over the last 24 hours. He denies other associated or accompanying signs and symptoms. His pain is increased with activity and reduced by oral oxycodone, IV fluids and IV Dilaudid. He has been admitted for similar complaints about once a month over the past 6 months. Past Medical History Cardiac Medical History: Reports: None Denies: Atrial Fibrillation, Congestive Heart Failure, Coronary Artery Disease, DVT, Myocardial Infarction, Hyperlipidema, Hypertension, Peripheral Vas cular Disease, Pulmonary Embolism Pulmonary Medical History: Reports: None Denies: Asthma, Bronchitis, Chronic Obstructive Pulmonary Disease (COPD), Pneumonia, Respiratory Failure, Tuberculosis EENT Medical History: Reports: Eyes - Prescription eyeglasses Denies: Cataracts, Ears - Hearing aids Neurological Medical History: Denies: Hemorrhagic CVA, Ischemic CVA, Migraine, Seizures Endocrine Medical History: Reports: None Denies: Diabetes Mellitus Type 1, Diabetes Mellitus Type 2, Hyperthyroidism, Hypothyroidism, Obesity Renal/ Medical History: Reports: None Denies: Chronic Kidney Disease, Nephrolithiasis Malignancy Medical History: Reports: None GI Medical History: Reports: Other - Sickle cell anemia with abdominal pain Denies: Cirrhosis, Crohn's Disease, Gastroesophageal Reflux Disease, Hepatitis, Peptic Ulcer Disease, Ulcerative Colitis Musculoskeltal Medical History: Reports: Other - Sickle cell with pain to all joints Denies: Arthritis, Gout Skin Medical History: Reports: None Denies: Eczema, Psoriasis Psychiatric Medical History: Reports: Depression Denies: Alcohol Dependency, Substance Abuse, Tobacco Dependency Traumatic Medical History: Reports: None Hematology: Reports: Anemia, Sickle Cell Disease Denies: Hemophilia, Bleeding Tendencies Infectious Medical History: Reports: None Past Surgical History Past Surgical History: Reports: Appendectomy, Vascular Surgery - L port placement, Other - Port placement Social History Lives with: Family Smoking Status: Never Smoker Electronic Cigarette use?: No Frequency of Alcohol Use: None Hx Recreational Drug Use: No Drugs: None Hx Prescription Drug Abuse: No - Advance Directive Resuscitation Status: Full Code Family History Family History: Hypertension, Other - Sickle cell anemia. denies: CAD, DM, Malignancy Parental Family History Reviewed: Yes Children Family History Reviewed: Yes Sibling(s) Family History Reviewed.: Yes Medication/Allergy Home Medications: Folic Acid [Folvite 1 mg Tablet] 1 mg PO DAILY 02/19/19 Hydroxyurea [Hydrea 500 mg Capsule] 1,500 mg PO DAILY 02/19/19 Oxycodone HCl [Oxy-Ir 5 mg Tablet] 10 mg PO Q4HP PRN 02/19/19 Ibuprofen [Ibu] 600 mg PO Q8HP PRN 10/17/19 Allergies/Adverse Reactions: famotidine [From Pepcid] Allergy (Severe, Verified 09/30/19 01:29) Anaphylaxis ketorolac tromethamine [From Toradol] Allergy (Severe, Verified 09/30/19:29) levofloxacin [From Levaquin] Allergy (Severe, Verified 09/30/19:29) meperidine HCl [From Demerol] Allergy (Severe, Verified 09/30/19:29) morphine [Morphine] Allergy (Severe, Verified 09/30/19:29) tramadol HCl [From Ultram] Allergy (Severe, Verified 09/30/19:29) amoxicillin [Amoxicillin] Allergy (Verified 09/30/19:29) fentanyl [Fentanyl] Allergy (Verified 09/30/19:29) latex [Latex] Allergy (Verified 09/30/19:) ondansetron HCl [From Zofran] Allergy (Verified 09/30/19:29) Pork/Porcine Containing Products Allergy (Verified 09/30/19:29) promethazine Allergy (Verified 09/30/19:29) Review of Systems Constitutional: ABSENT: fever(s), headache(s) Eyes: ABSENT: visual disturbances Ears: ABSENT: hearing changes Nose, Mouth, and Throat: ABSENT: sore throat Cardiovascular: PRESENT: chest pain Respiratory: ABSENT: hemoptysis Gastrointestinal: PRESENT: constipation. ABSENT: diarrhea, nausea Genitourinary: ABSENT: dysuria Musculoskeletal: PRESENT: as per HPI Integumentary: ABSENT: rash Neurological: PRESENT: weakness Hematologic/Lymphatic: ABSENT: easy bleeding Physical Exam Vital Signs: Temp Pulse Resp BP Pulse Ox 98.4 F 65 17 153/99 H 98 10/17/19 07:38 10/17/19 07:38 10/17/19 07:38 10/17/19 07:38 10/17/19 07:38 Intake & Output 10/16/19 10/17/19 10/18/19 06:59 06:59 06:59 Intake Total 1866 1000 Output Total 60 Balance 1806 1000 Weight 85.3 kg General appearance: PRESENT: no acute distress, well-developed, well-nourished Exam: 38 year old male. Head exam: PRESENT: atraumatic, normocephalic Eye exam: PRESENT: EOMI Mouth exam: PRESENT: moist Neck exam: ABSENT: lymphadenopathy, tenderness Respiratory exam: PRESENT: clear to auscultation anastasiya, unlabored Cardiovascular exam: PRESENT: RRR GI/Abdominal exam: PRESENT: soft. ABSENT: tenderness Extremities exam: ABSENT: pedal edema Musculoskeletal exam: PRESENT: normal inspection Neurological exam: PRESENT: alert, awake Psychiatric exam: PRESENT: appropriate affect Skin exam: PRESENT: normal color Results Laboratory Results: 10/17/19 06:15 10/17/19 06:15 10/16/19 10/16/19 10/16/19 20:20 20:20 22:48 WBC 10.4 RBC 2.73 L Hgb 8.8 L Hct 26.1 L MCV 96 MCH 32.3 MCHC 33.8 RDW 25.0 H Plt Count 386 Seg Neutrophils % Not Reportable Retic Count (auto) 12.69 H Sodium 135.5 L Potassium 3.8 Chloride 102 Carbon Dioxide 26 Anion Gap 8 BUN 6 L Creatinine 0.60 Est GFR ( Amer) > 60 Glucose 99 Calcium 9.2 Magnesium Total Bilirubin 2.1 H AST 35 Alkaline Phosphatase 86 Total Protein 8.8 H Albumin 4.6 Urine Color STRAW Urine Appearance CLEAR Urine pH 7.0 Ur Specific [place] 1.006 Urine Protein NEGATIVE Urine Glucose (UA) NEGATIVE Urine Ketones 20 H Urine Blood NEGATIVE Urine Nitrite NEGATIVE Ur Leukocyte Esterase NEGATIVE Urine RBC (Auto) 0 10/17/19 10/17/19 06:15 06:15 WBC 8.2 RBC 2.66 L Hgb 8.7 L Hct 25.4 L MCV 96 MCH 32.6 MCHC 34.1 RDW 24.7 H Plt Count 351 Seg Neutrophils % Retic Count (auto) Sodium 136.9 L Potassium 4.2 Chloride 102 Carbon Dioxide 28 Anion Gap 7 BUN 7 Creatinine 0.63 Est GFR ( Amer) > 60 Glucose 110 Calcium 8.8 Magnesium 2.0 Total Bilirubin AST Alkaline Phosphatase Total Protein Albumin Urine Color Urine Appearance Urine pH Ur Specific [place] Urine Protein Urine Glucose (UA) Urine Ketones Urine Blood Urine Nitrite Ur Leukocyte Esterase Urine RBC (Auto) Assessment & Plan - Diagnosis (1) Sickle cell pain crisis Is this a current diagnosis for this admission?: Yes Plan: Continue current treatments. He requests that Arixtra be changed to Lovenox and Colace be added RTC with Senna PRN instead of miralax. I am happy to make these changes, as I do not believe there is any medical reason to use arixtra instead of lovenox. Will continue to follow. Please call with any concerns.
[2019-10-17] MEDS ORDERED: SENNOSIDES/DOCUSATE 8.6-50 MG 1 EACH TABLET PO PRN (12:59)
--- NOTE | 2019-10-17 13:27 | PDOC PROGRESS REPORT ---
Subjective Reason For Visit: SICKLE CELL CRISIS Physical Exam Vital Signs: Temp Pulse Resp BP Pulse Ox 98.8 F 63 16 137/88 H 95 10/17/19 10:51 10/17/19 10:51 10/17/19 10:51 10/17/19 10:51 10/17/19 10:51 Intake & Output 10/16/19 10/17/19 10/18/19 06:59 06:59 06:59 Intake Total 1866 1118 Output Total 60 775 Balance 1806 343 Weight 85.3 kg General appearance: PRESENT: no acute distress, cooperative Neck exam: ABSENT: JVD Respiratory exam: PRESENT: crackles - RLL, symmetrical, unlabored. ABSENT: tachypnea, wheezes Cardiovascular exam: PRESENT: RRR, +S1, +S2. ABSENT: tachycardia GI/Abdominal exam: PRESENT: soft. ABSENT: rebound, rigid, tenderness Neurological exam: PRESENT: alert, awake, oriented to person, oriented to place, oriented to time Results Laboratory Results: 10/17/19 06:15 10/17/19 06:15 10/16/19 10/16/19 10/16/19 20:20 20:20 22:48 WBC 10.4 RBC 2.73 L Hgb 8.8 L Hct 26.1 L MCV 96 MCH 32.3 MCHC 33.8 RDW 25.0 H Plt Count 386 Seg Neutrophils % Not Reportable Retic Count (auto) 12.69 H Sodium 135.5 L Potassium 3.8 Chloride 102 Carbon Dioxide 26 Anion Gap 8 BUN 6 L Creatinine 0.60 Est GFR ( Amer) > 60 Glucose 99 Calcium 9.2 Magnesium Total Bilirubin 2.1 H AST 35 Alkaline Phosphatase 86 Total Protein 8.8 H Albumin 4.6 Urine Color STRAW Urine Appearance CLEAR Urine pH 7.0 Ur Specific [place] 1.006 Urine Protein NEGATIVE Urine Glucose (UA) NEGATIVE Urine Ketones 20 H Urine Blood NEGATIVE Urine Nitrite NEGATIVE Ur Leukocyte Esterase NEGATIVE Urine RBC (Auto) 0 10/17/19 10/17/19 06:15 06:15 WBC 8.2 RBC 2.66 L Hgb 8.7 L Hct 25.4 L MCV 96 MCH 32.6 MCHC 34.1 RDW 24.7 H Plt Count 351 Seg Neutrophils % Retic Count (auto) Sodium 136.9 L Potassium 4.2 Chloride 102 Carbon Dioxide 28 Anion Gap 7 BUN 7 Creatinine 0.63 Est GFR ( Amer) > 60 Glucose 110 Calcium 8.8 Magnesium 2.0 Total Bilirubin AST Alkaline Phosphatase Total Protein Albumin Urine Color Urine Appearance Urine pH Ur Specific [place] Urine Protein Urine Glucose (UA) Urine Ketones Urine Blood Urine Nitrite Ur Leukocyte Esterase Urine RBC (Auto) Assessment and Plan - Diagnosis (1) Sickle cell pain crisis Is this a current diagnosis for this admission?: Yes (2) Abdominal pain Qualifiers: Abdominal location: generalized Qualified Code(s): R10.84 - Generalized abdominal pain Is this a current diagnosis for this admission?: Yes (3) Polyarthralgia Is this a current diagnosis for this admission?: Yes - Plan Summary Summary: Continue IV Dilaudid for pain control IV fluids administration. Oxygen supplementation. Continue folic acid and hydroxyurea. Patient evaluated by oncology. Hemoglobin is currently stable. Reviewed metabolic panel which is unimpressive at this time. Check CBC and electrolytes in the morning. - Time Time Spent with patient: Less than 15 minutes
[2019-10-17] MEDS: DOCUSATE SODIUM 100 MG CAPSULE PO SCH (17:17)
[2019-10-18] MEDS: HYDROMORPHONE HCL INJ/PF 2 MG/ML AMPULE IV PRN ×11 (00:50→22:15)
[2019-10-18] MEDS: DIPHENHYDRAMINE HCL 50 MG/ML VIAL IV PRN ×5 (03:06→20:01)
[2019-10-18 04:54] LABS: HEMATOCRIT 24.9 % (37.9-51.0); HEMOGLOBIN 8.7 g/dL (13.5-17.0); MEAN CORPUSCULAR HEMOGLOBIN 32.8 pg (27.0-33.4); MEAN CORPUSCULAR HGB CONC 34.9 g/dL (32.0-36.0); MEAN CORPUSCULAR VOLUME 94 fl (80-97); PLATELET COUNT 356 10^3/uL (150-450); RED BLOOD COUNT 2.65 10^6/uL (4.35-5.55); RED CELL DISTRIBUTION WIDTH 23.8 % (11.5-14.0); WHITE BLOOD COUNT 6.2 10^3/uL (4.0-10.5)
[2019-10-18 05:05] LABS: ANION GAP 8 (5-19); BLOOD UREA NITROGEN 6 mg/dL (7-20); CALCIUM 8.7 mg/dL (8.4-10.2); CARBON DIOXIDE 30 mmol/L (22-30); CHLORIDE 99 mmol/L (98-107); GLUCOSE 115 mg/dL (75-110); POTASSIUM 4.1 mmol/L (3.6-5.0)
[2019-10-18] MEDS: RINGERS SOLUTION,LACTATED 1,000 ML IV PRN ×3 (05:42→17:53)
[2019-10-18] MEDS: FOLIC ACID 1 MG TABLET PO SCH (09:26)
[2019-10-18] MEDS: ENOXAPARIN SODIUM INJ 40 MG/0.4 ML DISP.SYRIN SUBCUT SCH (09:26)
[2019-10-18] MEDS: DOCUSATE SODIUM 100 MG CAPSULE PO SCH ×2 (09:26→17:53)
[2019-10-18] MEDS: HYDROXYUREA 500 MG CAPSULE PO SCH (09:27)
--- NOTE | 2019-10-18 17:19 | PDOC PROGRESS REPORT ---
Subjective Progress Note for:: 10/18/19 Subjective:: Patient initially admitted for sickle cell pain crisis. Well-known to our service for many prior sickle cell pain crises. Per patient, his pain is controlled today and he would like to keep his regimen as it is. Hematology is following actively and adjusting the pain medications as needed. He does not need a transfusion today as his hemoglobin is stable. He has no new complaints otherwise. Reason For Visit: SICKLE CELL CRISIS Physical Exam Vital Signs: Temp Pulse Resp BP Pulse Ox 97.5 F 66 16 159/91 H 100 10/18/19 16:00 10/18/19 16:00 10/18/19 16:00 10/18/19 16:00 10/18/19 16:00 Intake & Output 10/17/19 10/18/19 10/19/19 06:59 06:59 06:59 Intake Total 1866 4338 996 Output Total 60 3600 Balance 1806 738 996 Weight 85.3 kg 85.3 kg General appearance: PRESENT: no acute distress, well-developed, well-nourished Head exam: PRESENT: atraumatic, normocephalic Eye exam: PRESENT: conjunctiva pink Mouth exam: PRESENT: moist Respiratory exam: PRESENT: clear to auscultation anastasiya. ABSENT: rales, rhonchi, wheezes Cardiovascular exam: PRESENT: RRR. ABSENT: diastolic murmur, rubs, systolic murmur GI/Abdominal exam: PRESENT: normal bowel sounds, soft. ABSENT: distended, guarding, mass, organolmegaly, rebound, tenderness Extremities exam: ABSENT: pedal edema Musculoskeletal exam: PRESENT: tenderness - Diffuse tenderness across legs Neurological exam: PRESENT: alert, awake, oriented to person, oriented to place, oriented to time, oriented to situation Psychiatric exam: PRESENT: appropriate affect Skin exam: PRESENT: dry, intact, warm Results Laboratory Results: 10/18/19 04:25 10/18/19 04:25 10/18/19 10/18/19 04:25 04:25 WBC 6.2 RBC 2.65 L Hgb 8.7 L Hct 24.9 L MCV 94 MCH 32.8 MCHC 34.9 RDW 23.8 H Plt Count 356 Sodium 137.1 Potassium 4.1 Chloride 99 Carbon Dioxide 30 Anion Gap 8 BUN 6 L Creatinine 0.56 Est GFR ( Amer) > 60 Glucose 115 H Calcium 8.7 Magnesium 1.8 Assessment and Plan - Diagnosis (1) Sickle cell pain crisis Is this a current diagnosis for this admission?: Yes Plan: Hematology consulted on admission, following actively and adjusting pain management regimen IV fluids Trend CBC, does not require transfusion currently Home Hydrea continued DVT prophylaxis Patient states he does not feel like he has acute chest which he has had many years ago (2) Sickle-cell disease with pain Is this a current diagnosis for this admission?: Yes (3) Chronic pain Qualifiers: Chronic pain type: other chronic pain Qualified Code(s): G89.29 - Other chronic pain Is this a current diagnosis for this admission?: Yes (4) DVT prophylaxis Is this a current diagnosis for this admission?: Yes Plan: Lovenox daily (5) Opiate dependence, continuous Is this a current diagnosis for this admission?: Yes (6) Sickle cell anemia Qualifiers: Sickle-cell associated disorders: with unspecified crisis Qualified Code(s): D57.00 - Hb-SS disease with crisis, unspecified; D57.0 - Hb-SS disease with crisis Is this a current diagnosis for this admission?: Yes - Plan Summary Summary: Continue IV Dilaudid for pain control IV fluids administration. Oxygen supplementation. Continue folic acid and hydroxyurea. Patient evaluated by oncology. Hemoglobin is currently stable. Reviewed metabolic panel which is unimpressive at this time. Check CBC and electrolytes in the morning. - Time Time Spent with patient: 15-24 minutes Medications reviewed and adjusted accordingly: Yes Anticipated discharge: Home Within: within 72 hours - Inpatient Certification Based on my medical assessment, after consideration of the patient's comorbidities, presenting symptoms, or acuity I expect that the services needed warrant INPATIENT care.: Yes I certify that my determination is in accordance with my understanding of Medicare's requirements for reasonable and necessary INPATIENT services [42 CFR 412.3e].: Yes Medical Necessity: Significant Comorbidiites Make Outpatient Treatment Too Risky, Need Close Monitoring Due to Risk of Patient Decompensation, Need For IV Fluids, Need for Pain Control
[2019-10-19] MEDS: HYDROMORPHONE HCL INJ/PF 2 MG/ML AMPULE IV PRN ×9 (00:16→22:33)
[2019-10-19] MEDS: DIPHENHYDRAMINE HCL 50 MG/ML VIAL IV PRN ×5 (00:18→20:18)
[2019-10-19] MEDS: RINGERS SOLUTION,LACTATED 1,000 ML IV PRN ×4 (00:19→20:18)
[2019-10-19 05:15] LABS: ANION GAP 8 (5-19); BLOOD UREA NITROGEN 5 mg/dL (7-20); CARBON DIOXIDE 31 mmol/L (22-30); CHLORIDE 99 mmol/L (98-107); GLUCOSE 118 mg/dL (75-110); POTASSIUM 4.2 mmol/L (3.6-5.0)
[2019-10-19 05:50] LABS: HEMATOCRIT 25.3 % (37.9-51.0); HEMOGLOBIN 8.6 g/dL (13.5-17.0); MEAN CORPUSCULAR HEMOGLOBIN 31.7 pg (27.0-33.4); MEAN CORPUSCULAR HGB CONC 33.8 g/dL (32.0-36.0); MEAN CORPUSCULAR VOLUME 94 fl (80-97); PLATELET COUNT 407 10^3/uL (150-450); RED CELL DISTRIBUTION WIDTH 23.1 % (11.5-14.0); WHITE BLOOD COUNT 5.9 10^3/uL (4.0-10.5)
--- NOTE | 2019-10-19 08:24 | PDOC PROGRESS REPORT ---
Subjective Progress Note for:: 10/19/19 Subjective:: No acute events overnight, feeling a little bit better but still having a lot of pain Reason For Visit: SICKLE CELL CRISIS Physical Exam Vital Signs: Temp Pulse Resp BP Pulse Ox 98.8 F 72 18 146/99 H 100 10/19/19 00:00 10/19/19 00:00 10/19/19 00:00 10/19/19 00:00 10/19/19 00:00 Intake & Output 10/18/19 10/19/19 10/20/19 06:59 06:59 06:59 Intake Total 4338 4596 Output Total 3600 3250 Balance 738 1346 Weight 85.3 kg 85.3 kg General appearance: PRESENT: no acute distress, well-developed, well-nourished Head exam: PRESENT: atraumatic, normocephalic Eye exam: PRESENT: conjunctiva pink, EOMI, PERRLA. ABSENT: scleral icterus Ear exam: PRESENT: normal external ear exam Mouth exam: PRESENT: moist, tongue midline Neck exam: ABSENT: carotid bruit, JVD, lymphadenopathy, thyromegaly Respiratory exam: PRESENT: clear to auscultation anastasiya. ABSENT: rales, rhonchi, wheezes Cardiovascular exam: PRESENT: RRR. ABSENT: diastolic murmur, rubs, systolic murmur Pulses: PRESENT: normal dorsalis pedis pul Vascular exam: PRESENT: normal capillary refill GI/Abdominal exam: PRESENT: normal bowel sounds, soft. ABSENT: distended, guarding, mass, organolmegaly, rebound, tenderness Rectal exam: PRESENT: deferred Extremities exam: PRESENT: full ROM. ABSENT: calf tenderness, clubbing, pedal edema Neurological exam: PRESENT: alert, awake, oriented to person, oriented to place, oriented to time, oriented to situation, CN II-XII grossly intact. ABSENT: motor sensory deficit Psychiatric exam: PRESENT: appropriate affect, normal mood. ABSENT: homicidal ideation, suicidal ideation Skin exam: PRESENT: dry, intact, warm. ABSENT: cyanosis, rash Results Laboratory Results: 10/19/19 04:20 10/19/19 04:20 10/19/19 10/19/19 04:20 04:20 WBC 5.9 RBC 2.70 L Hgb 8.6 L Hct 25.3 L MCV 94 MCH 31.7 MCHC 33.8 RDW 23.1 H Plt Count 407 Sodium 137.7 Potassium 4.2 Chloride 99 Carbon Dioxide 31 H Anion Gap 8 BUN 5 L Creatinine 0.69 Est GFR ( Amer) > 60 Glucose 118 H Calcium 9.0 Magnesium 1.9 Assessment & Plan - Diagnosis (1) Sickle cell pain crisis Is this a current diagnosis for this admission?: Yes Plan: Patient here with sickle cell pain crisis, will start him on medications for his priapism, started usual dose of methadone, we will add K pad for comfort, call us with any pain changes. (2) Anemia Qualifiers: Anemia type: acquired or hereditary hemolytic anemia Hemolytic anemia type: other hemoglobinopathy Qualified Code(s): D58.2 - Other hemoglobinopathies Is this a current diagnosis for this admission?: Yes Plan: Has multiple antibodies we have not had transfusion in quite some time, but if hemoglobin gets under 6 we may consider. - Time Time Spent with patient: 35 or more minutes
[2019-10-19] MEDS ORDERED: PSEUDOEPHEDRINE HCL 30 MG TABLET PO PRN (08:44)
[2019-10-19] MEDS ORDERED: BACLOFEN 10 MG TABLET PO PRN (08:45)
[2019-10-19] MEDS ORDERED: HYDROMORPHONE HCL INJ/PF 2 MG/ML AMPULE IV PRN (08:47)
[2019-10-19] MEDS: ENOXAPARIN SODIUM INJ 40 MG/0.4 ML DISP.SYRIN SUBCUT SCH (09:10)
[2019-10-19] MEDS: DOCUSATE SODIUM 100 MG CAPSULE PO SCH ×2 (09:20→18:04)
[2019-10-19] MEDS: METHADONE HCL 10 MG TABLET PO SCH ×3 (09:20→21:51)
[2019-10-19] MEDS: FOLIC ACID 1 MG TABLET PO SCH (09:20)
[2019-10-19] MEDS: HYDROXYUREA 500 MG CAPSULE PO SCH (09:21)
--- NOTE | 2019-10-19 17:32 | PDOC PROGRESS REPORT ---
Subjective Progress Note for:: 10/19/19 Subjective:: 10/18/2019 Patient initially admitted for sickle cell pain crisis. Well-known to our service for many prior sickle cell pain crises. Per patient, his pain is controlled today and he would like to keep his regimen as it is. Hematology is following actively and adjusting the pain medications as needed. He does not need a transfusion today as his hemoglobin is stable. He has no new complaints otherwise. 10/19/2019 Patient states there is very little change today and that his pain is getting mildly better over time. He has no new complaints other than his usual sickle cell pain. Reason For Visit: SICKLE CELL CRISIS Physical Exam Vital Signs: Temp Pulse Resp BP Pulse Ox 98.1 F 69 15 152/96 H 100 10/19/19 08:18 10/19/19 08:18 10/19/19 08:18 10/19/19 08:18 10/19/19 08:18 Intake & Output 10/18/19 10/19/19 10/20/19 06:59 06:59 06:59 Intake Total 4338 4596 1360 Output Total 3600 3250 1500 Balance 738 1346 -140 Weight 85.3 kg 85.3 kg Results Laboratory Results: 10/19/19 04:20 10/19/19 04:20 10/19/19 10/19/19 04:20 04:20 WBC 5.9 RBC 2.70 L Hgb 8.6 L Hct 25.3 L MCV 94 MCH 31.7 MCHC 33.8 RDW 23.1 H Plt Count 407 Sodium 137.7 Potassium 4.2 Chloride 99 Carbon Dioxide 31 H Anion Gap 8 BUN 5 L Creatinine 0.69 Est GFR ( Amer) > 60 Glucose 118 H Calcium 9.0 Magnesium 1.9 Assessment and Plan - Diagnosis (1) Sickle cell pain crisis Is this a current diagnosis for this admission?: Yes Plan: Hematology consulted on admission, following actively and adjusting pain management regimen IV fluids Trend CBC, does not require transfusion currently Home Hydrea continued DVT prophylaxis Patient states he does not feel like he has acute chest which he has had many years ago Very slow to recover sickle cell pain, patient states sometimes it takes him 3 to 4 weeks to recover and he is usually hospitalized for 2-3 of those weeks (2) Sickle-cell disease with pain Is this a current diagnosis for this admission?: Yes (3) Chronic pain Qualifiers: Chronic pain type: other chronic pain Qualified Code(s): G89.29 - Other chronic pain Is this a current diagnosis for this admission?: Yes (4) DVT prophylaxis Is this a current diagnosis for this admission?: Yes (5) Opiate dependence, continuous Is this a current diagnosis for this admission?: Yes (6) Sickle cell anemia Qualifiers: Sickle-cell associated disorders: with unspecified crisis Qualified Code(s): D57.00 - Hb-SS disease with crisis, unspecified; D57.0 - Hb-SS disease with crisis Is this a current diagnosis for this admission?: Yes - Plan Summary Summary: Continue IV Dilaudid for pain control IV fluids administration. Oxygen supplementation. Continue folic acid and hydroxyurea. Patient evaluated by oncology. Hemoglobin is currently stable. Reviewed metabolic panel which is unimpressive at this time. Check CBC and electrolytes in the morning. - Time Time Spent with patient: 15-24 minutes Anticipated discharge: Home - Inpatient Certification Based on my medical assessment, after consideration of the patient's comorbidities, presenting symptoms, or acuity I expect that the services needed warrant INPATIENT care.: Yes I certify that my determination is in accordance with my understanding of Medicare's requirements for reasonable and necessary INPATIENT services [42 CFR 412.3e].: Yes Medical Necessity: Need For IV Fluids, Need for Pain Control
[2019-10-20] MEDS: DIPHENHYDRAMINE HCL 50 MG/ML VIAL IV PRN ×6 (00:50→22:22)
[2019-10-20] MEDS: HYDROMORPHONE HCL INJ/PF 2 MG/ML AMPULE IV PRN ×11 (00:51→22:16)
[2019-10-20] MEDS: RINGERS SOLUTION,LACTATED 1,000 ML IV PRN ×4 (02:55→22:19)
[2019-10-20] MEDS: METHADONE HCL 10 MG TABLET PO SCH ×3 (05:16→22:17)
--- NOTE | 2019-10-20 08:57 | PDOC PROGRESS REPORT ---
Subjective Progress Note for:: 10/20/19 Subjective:: Patient still upset from last night. I received a phone call from him at midnight stating that one of the staff had come into his room and had treated him very poorly. He states that he does not want to be in pain and does not want to be in the hospital and deserves to be treated with respect. This morning, he is feeling better, but still would like to speak with the floor runner. He did not elaborate more as to what was said. He states that his breathing has improved but his pain is about the same. No new medical concerns. ROS: no constipation. No dysuria. Reason For Visit: SICKLE CELL CRISIS Physical Exam Vital Signs: Temp Pulse Resp BP Pulse Ox 98.6 F 80 17 133/88 H 100 10/20/19 07:32 10/20/19 07:32 10/20/19 07:32 10/20/19 07:32 10/20/19 07:32 Intake & Output 10/19/19 10/20/19 10/21/19 06:59 06:59 06:59 Intake Total 4596 4095 Output Total 3250 3100 Balance 1346 995 Weight 85.3 kg 85.3 kg General appearance: PRESENT: no acute distress, well-developed, well-nourished Head exam: PRESENT: normocephalic Eye exam: PRESENT: EOMI Respiratory exam: PRESENT: clear to auscultation anastasiya, unlabored Cardiovascular exam: PRESENT: RRR GI/Abdominal exam: PRESENT: soft. ABSENT: tenderness Extremities exam: ABSENT: pedal edema Neurological exam: PRESENT: alert, awake, oriented to person, oriented to place, oriented to time, oriented to situation Psychiatric exam: PRESENT: appropriate affect Skin exam: PRESENT: normal color Results Laboratory Results: 10/19/19 04:20 10/19/19 04:20 Assessment & Plan - Diagnosis (1) Sickle cell pain crisis Is this a current diagnosis for this admission?: Yes Plan: Continue current management. No change in pain meds today. Continue oxygen and fluids. Will follow. I have asked the nurses today to have traffic control supervisor or chapter relations administrator speak with patient. - Time Time Spent with patient: 15-24 minutes
[2019-10-20] MEDS: HYDROXYUREA 500 MG CAPSULE PO SCH (09:41)
[2019-10-20] MEDS: FOLIC ACID 1 MG TABLET PO SCH (09:41)
[2019-10-20] MEDS: DOCUSATE SODIUM 100 MG CAPSULE PO SCH ×2 (09:41→18:09)
[2019-10-20] MEDS: ENOXAPARIN SODIUM INJ 40 MG/0.4 ML DISP.SYRIN SUBCUT SCH (09:58)
--- NOTE | 2019-10-20 15:06 | PDOC PROGRESS REPORT ---
Subjective Progress Note for:: 10/20/19 Subjective:: 10/18/2019 Patient initially admitted for sickle cell pain crisis. Well-known to our service for many prior sickle cell pain crises. Per patient, his pain is controlled today and he would like to keep his regimen as it is. Hematology is following actively and adjusting the pain medications as needed. He does not need a transfusion today as his hemoglobin is stable. He has no new complaints otherwise. 10/19/2019 Patient states there is very little change today and that his pain is getting mildly better over time. He has no new complaints other than his usual sickle cell pain. 10/10/2019 Patient states his pain is still gradually improving. He is very upset because he had an argument with 1 of the care partners overnight reportedly. He would not go into detail about what was said or done but states he wants to complain about it. Other than this he has no new complaints. Hemoglobin is stable and does not require transfusion. Reason For Visit: SICKLE CELL CRISIS Physical Exam Vital Signs: Temp Pulse Resp BP Pulse Ox 98.7 F 87 17 153/90 H 100 10/20/19 11:00 10/20/19 11:00 10/20/19 11:00 10/20/19 11:00 10/20/19 11:00 Intake & Output 10/19/19 10/20/19 10/21/19 06:59 06:59 06:59 Intake Total 4596 4095 1120 Output Total 3250 3100 750 Balance 1346 995 370 Weight 85.3 kg 85.3 kg General appearance: PRESENT: no acute distress, well-developed, well-nourished Head exam: PRESENT: atraumatic, normocephalic Eye exam: PRESENT: conjunctiva pink Mouth exam: PRESENT: moist Respiratory exam: PRESENT: clear to auscultation anastasiya. ABSENT: rales, rhonchi, wheezes Cardiovascular exam: PRESENT: RRR. ABSENT: diastolic murmur, rubs, systolic murmur GI/Abdominal exam: PRESENT: normal bowel sounds, soft. ABSENT: distended, guarding, mass, organolmegaly, rebound, tenderness Psychiatric exam: PRESENT: appropriate affect Skin exam: PRESENT: dry, intact, warm Results Laboratory Results: 10/19/19 04:20 10/19/19 04:20 Assessment and Plan - Diagnosis (1) Sickle cell pain crisis Is this a current diagnosis for this admission?: Yes Plan: Hematology consulted on admission, following actively and adjusting pain management regimen IV fluids Trend CBC, does not require transfusion currently Home Hydrea continued DVT prophylaxis Patient states he does not feel like he has acute chest which he has had many years ago Very slow to recover sickle cell pain, patient states sometimes it takes him 3 to 4 weeks to recover and he is usually hospitalized for 2-3 of those weeks Continuing pain management with mild improvement (2) Sickle-cell disease with pain Is this a current diagnosis for this admission?: Yes (3) Chronic pain Qualifiers: Chronic pain type: other chronic pain Qualified Code(s): G89.29 - Other chronic pain Is this a current diagnosis for this admission?: Yes (4) DVT prophylaxis Is this a current diagnosis for this admission?: Yes (5) Opiate dependence, continuous Is this a current diagnosis for this admission?: Yes (6) Sickle cell anemia Qualifiers: Sickle-cell associated disorders: with unspecified crisis Qualified Code(s): D57.00 - Hb-SS disease with crisis, unspecified; D57.0 - Hb-SS disease with crisis Is this a current diagnosis for this admission?: Yes - Plan Summary Summary: Continue IV Dilaudid for pain control IV fluids administration. Oxygen supplementation. Continue folic acid and hydroxyurea. Patient evaluated by oncology. Hemoglobin is currently stable. Reviewed metabolic panel which is unimpressive at this time. Check CBC and electrolytes in the morning. - Time Time Spent with patient: 15-24 minutes Anticipated discharge: Home - Inpatient Certification Based on my medical assessment, after consideration of the patient's comorbidities, presenting symptoms, or acuity I expect that the services needed warrant INPATIENT care.: Yes I certify that my determination is in accordance with my understanding of Medicare's requirements for reasonable and necessary INPATIENT services [42 CFR 412.3e].: Yes Medical Necessity: Need For IV Fluids, Need for Pain Control
[2019-10-21] MEDS: HYDROMORPHONE HCL INJ/PF 2 MG/ML AMPULE IV PRN ×12 (00:09→22:51)
[2019-10-21] MEDS: DIPHENHYDRAMINE HCL 50 MG/ML VIAL IV PRN ×6 (02:08→22:50)
[2019-10-21] MEDS: RINGERS SOLUTION,LACTATED 1,000 ML IV PRN ×4 (03:56→22:50)
[2019-10-21] MEDS: METHADONE HCL 10 MG TABLET PO SCH ×3 (05:51→21:36)
--- NOTE | 2019-10-21 07:56 | PDOC PROGRESS REPORT ---
Subjective Progress Note for:: 10/21/19 Subjective:: Patient still having considerable pain but is slowly getting better. Reason For Visit: SICKLE CELL CRISIS Physical Exam Vital Signs: Temp Pulse Resp BP Pulse Ox 97.6 F 82 18 124/76 99 10/21/19 05:47 10/21/19 05:47 10/21/19 05:47 10/21/19 05:47 10/21/19 06:07 Intake & Output 10/20/19 10/21/19 10/22/19 06:59 06:59 06:59 Intake Total 4095 5448 Output Total 3100 3750 Balance 995 1698 Weight 85.3 kg 85.3 kg General appearance: PRESENT: no acute distress, well-developed, well-nourished Head exam: PRESENT: atraumatic, normocephalic Eye exam: PRESENT: conjunctiva pink, EOMI, PERRLA. ABSENT: scleral icterus Ear exam: PRESENT: normal external ear exam Mouth exam: PRESENT: moist, tongue midline Neck exam: ABSENT: carotid bruit, JVD, lymphadenopathy, thyromegaly Respiratory exam: PRESENT: clear to auscultation anastasiya. ABSENT: rales, rhonchi, wheezes Cardiovascular exam: PRESENT: RRR. ABSENT: diastolic murmur, rubs, systolic murmur Pulses: PRESENT: normal dorsalis pedis pul Vascular exam: PRESENT: normal capillary refill GI/Abdominal exam: PRESENT: normal bowel sounds, soft. ABSENT: distended, guarding, mass, organolmegaly, rebound, tenderness Rectal exam: PRESENT: deferred Extremities exam: PRESENT: full ROM. ABSENT: calf tenderness, clubbing, pedal edema Neurological exam: PRESENT: alert, awake, oriented to person, oriented to place, oriented to time, oriented to situation, CN II-XII grossly intact. ABSENT: motor sensory deficit Psychiatric exam: PRESENT: appropriate affect, normal mood. ABSENT: homicidal ideation, suicidal ideation Skin exam: PRESENT: dry, intact, warm. ABSENT: cyanosis, rash Results Laboratory Results: 10/19/19 04:20 10/19/19 04:20 Assessment & Plan - Diagnosis (1) Sickle cell pain crisis Is this a current diagnosis for this admission?: Yes Plan: Continue current therapy, no pain changes today, still will need probably at least another 48 to 72 hours inpatient. 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
[2019-10-21] MEDS: FOLIC ACID 1 MG TABLET PO SCH (10:00)
[2019-10-21] MEDS: HYDROXYUREA 500 MG CAPSULE PO SCH (10:00)
[2019-10-21] MEDS: DOCUSATE SODIUM 100 MG CAPSULE PO SCH ×2 (10:00→17:56)
[2019-10-21] MEDS: ENOXAPARIN SODIUM INJ 40 MG/0.4 ML DISP.SYRIN SUBCUT SCH (10:01)
--- NOTE | 2019-10-21 13:28 | PDOC PROGRESS REPORT ---
Subjective Progress Note for:: 10/21/19 Subjective:: 10/18/2019 Patient initially admitted for sickle cell pain crisis. Well-known to our service for many prior sickle cell pain crises. Per patient, his pain is controlled today and he would like to keep his regimen as it is. Hematology is following actively and adjusting the pain medications as needed. He does not need a transfusion today as his hemoglobin is stable. He has no new complaints otherwise. 10/19/2019 Patient states there is very little change today and that his pain is getting mildly better over time. He has no new complaints other than his usual sickle cell pain. 10/20/2019 Patient states his pain is still gradually improving. He is very upset because he had an argument with 1 of the care partners overnight reportedly. He would not go into detail about what was said or done but states he wants to complain about it. Other than this he has no new complaints. Hemoglobin is stable and does not require transfusion. 10/21/2019 Patient still having mild improvement in pain. Not much change today. We are holding off on labs today to keep from worsening anemia. Patient has no new complaints today. Reason For Visit: SICKLE CELL CRISIS Physical Exam Vital Signs: Temp Pulse Resp BP Pulse Ox 98.3 F 71 17 120/80 99 10/21/19 08:00 10/21/19 08:00 10/21/19 08:00 10/21/19 08:00 10/21/19 08:00 Intake & Output 10/20/19 10/21/19 10/22/19 06:59 06:59 06:59 Intake Total 4095 5448 1000 Output Total 3100 3750 Balance 995 1698 1000 Weight 85.3 kg 85.3 kg General appearance: PRESENT: no acute distress, well-developed, well-nourished Head exam: PRESENT: atraumatic, normocephalic Eye exam: PRESENT: conjunctiva pink Respiratory exam: PRESENT: clear to auscultation anastasiya. ABSENT: rales, rhonchi, wheezes Cardiovascular exam: PRESENT: RRR. ABSENT: diastolic murmur, rubs, systolic mu rmur GI/Abdominal exam: PRESENT: normal bowel sounds, soft. ABSENT: distended, guarding, mass, organolmegaly, rebound, tenderness Extremities exam: PRESENT: tenderness - Sickle cell pain in legs Musculoskeletal exam: PRESENT: ambulatory Neurological exam: PRESENT: alert, awake, oriented to person, oriented to place, oriented to time, oriented to situation Psychiatric exam: PRESENT: appropriate affect Skin exam: PRESENT: dry, intact, warm Results Laboratory Results: 10/19/19 04:20 10/19/19 04:20 Assessment and Plan - Diagnosis (1) Sickle cell pain crisis Is this a current diagnosis for this admission?: Yes Plan: Hematology consulted on admission, following actively and adjusting pain management regimen IV fluids Trend CBC, does not require transfusion currently Home Hydrea continued DVT prophylaxis Patient states he does not feel like he has acute chest which he has had many years ago Very slow to recover sickle cell pain, patient states sometimes it takes him 3 to 4 weeks to recover and he is usually hospitalized for 2-3 of those weeks Continuing pain management with mild improvement Pain improved slightly, no need for transfusion (2) Sickle-cell disease with pain Is this a current diagnosis for this admission?: Yes (3) Chronic pain Qualifiers: Chronic pain type: other chronic pain Qualified Code(s): G89.29 - Other chronic pain Is this a current diagnosis for this admission?: Yes (4) DVT prophylaxis Is this a current diagnosis for this admission?: Yes (5) Opiate dependence, continuous Is this a current diagnosis for this admission?: Yes (6) Sickle cell anemia Qualifiers: Sickle-cell associated disorders: with unspecified crisis Qualified Code(s): D57.00 - Hb-SS disease with crisis, unspecified; D57.0 - Hb-SS disease with crisis Is this a current diagnosis for this admission?: Yes - Plan Summary Summary: Continue IV Dilaudid for pain control IV fluids administration. Oxygen supplementation. Continue folic acid and hydroxyurea. Patient evaluated by oncology. Hemoglobin is currently stable. Reviewed metabolic panel which is unimpressive at this time. Check CBC and electrolytes in the morning. - Time Time Spent with patient: 15-24 minutes Medications reviewed and adjusted accordingly: Yes Anticipated discharge: Home - Inpatient Certification Based on my medical assessment, after consideration of the patient's comorbidities, presenting symptoms, or acuity I expect that the services needed warrant INPATIENT care.: Yes I certify that my determination is in accordance with my understanding of Medicare's requirements for reasonable and necessary INPATIENT services [42 CFR 412.3e].: Yes Medical Necessity: Need For IV Fluids, Need for Pain Control
[2019-10-22] MEDS: HYDROMORPHONE HCL INJ/PF 2 MG/ML AMPULE IV PRN ×11 (00:58→23:03)
[2019-10-22] MEDS: DIPHENHYDRAMINE HCL 50 MG/ML VIAL IV PRN ×5 (03:01→20:36)
[2019-10-22] MEDS: METHADONE HCL 10 MG TABLET PO SCH ×3 (05:27→22:59)
[2019-10-22] MEDS: RINGERS SOLUTION,LACTATED 1,000 ML IV PRN ×3 (05:37→20:35)
[2019-10-22 08:06] LABS: APPEARANCE,URINE CLEAR; BILIRUBIN,URINE NEGATIVE (NEGATIVE); COLOR,URINE YELLOW; GLUCOSE, URINE 50 mg/dL (NEGATIVE); KETONES,URINE NEGATIVE (NEGATIVE); LEUKOCYTE ESTERASE,URINE NEGATIVE (NEGATIVE); NITRITE,URINE NEGATIVE (NEGATIVE); PROTEIN,URINE NEGATIVE (NEGATIVE); URINE SPECIFIC GRAVITY 1.006; UROBILINOGEN,URINE NEGATIVE mg/dL (<2.0)
[2019-10-22] MEDS: FOLIC ACID 1 MG TABLET PO SCH (09:23)
[2019-10-22] MEDS: DOCUSATE SODIUM 100 MG CAPSULE PO SCH ×3 (09:23→18:18)
[2019-10-22] MEDS: HYDROXYUREA 500 MG CAPSULE PO SCH (09:26)
[2019-10-22] MEDS: ENOXAPARIN SODIUM INJ 40 MG/0.4 ML DISP.SYRIN SUBCUT SCH (09:28)
[2019-10-22 15:42] LABS: HEMATOCRIT 22.1 % (37.9-51.0); MEAN CORPUSCULAR HEMOGLOBIN 31.6 pg (27.0-33.4); PLATELET COUNT 384 10^3/uL (150-450); RED BLOOD COUNT 2.45 10^6/uL (4.35-5.55); RED CELL DISTRIBUTION WIDTH 22.8 % (11.5-14.0); WHITE BLOOD COUNT 5.3 10^3/uL (4.0-10.5)
[2019-10-22 16:09] LABS: MEAN CORPUSCULAR VOLUME 90 fl (80-97)
[2019-10-22 16:13] LABS: ABSOLUTE LYMPHOCYTES# (MANUAL) 1.4 10^3/uL (0.5-4.7); ABSOLUTE MONOCYTES # (MANUAL) 0.4 10^3/uL (0.1-1.4); BAND NEUTROPHILS % (MANUAL) 1 % (3-5); BASOPHILS % (MANUAL) 0 % (0-2); EOSINOPHILS % (MANUAL) 4 % (0-6); LYMPHOCYTES % (MANUAL) 26 % (13-45); MONOCYTES % (MANUAL) 7 % (3-13); SEGMENTED NEUTROPHILS % (MAN) 62 % (42-78); TOTAL CELLS COUNTED 100
[2019-10-22 16:15] LABS: ANISOCYTOSIS 3+; OVALOCYTES SLIGHT; PLATELET COMMENT ADEQUATE; POIKILOCYTOSIS 1+; POLYCHROMASIA SLIGHT; SICKLE RED CELLS 1+; TARGET CELLS 1+
[2019-10-22 16:40] LABS: HEMOGLOBIN 7.7 g/dL (13.5-17.0)
--- NOTE | 2019-10-22 19:13 | PDOC PROGRESS REPORT ---
Subjective Progress Note for:: 10/22/19 Subjective:: 10/18/2019 Patient initially admitted for sickle cell pain crisis. Well-known to our service for many prior sickle cell pain crises. Per patient, his pain is controlled today and he would like to keep his regimen as it is. Hematology is following actively and adjusting the pain medications as needed. He does not need a transfusion today as his hemoglobin is stable. He has no new complaints otherwise. 10/19/2019 Patient states there is very little change today and that his pain is getting mildly better over time. He has no new complaints other than his usual sickle cell pain. 10/20/2019 Patient states his pain is still gradually improving. He is very upset because he had an argument with 1 of the care partners overnight reportedly. He would not go into detail about what was said or done but states he wants to complain about it. Other than this he has no new complaints. Hemoglobin is stable and does not require transfusion. 10/21/2019 Patient still having mild improvement in pain. Not much change today. We are holding off on labs today to keep from worsening anemia. Patient has no new complaints today. 10/22/2019 Hemoglobin is dropped a bit today but is not at the threshold for transfusion. Recheck CBC in the morning. Patient states his pain is gradually improving little by little. He has no new complaints today. Reason For Visit: SICKLE CELL CRISIS Physical Exam Vital Signs: Temp Pulse Resp BP Pulse Ox 98.8 F 89 16 128/82 H 100 10/22/19 12:16 10/22/19 12:16 10/22/19 12:16 10/22/19 12:16 10/22/19 12:16 Intake & Output 10/21/19 10/22/19 10/23/19 06:59 06:59 06:59 Intake Total 5448 5600 1840 Output Total 3750 4300 Balance 1698 1300 1840 Weight 85.3 kg 85.3 kg General appearance: PRESENT: no acute distress, well-developed, well-nourished Head exam: PRESENT: atraumatic, normocephalic Eye exam: PRESENT: conjunctiva pink Mouth exam: PRESENT: moist Respiratory exam: PRESENT: clear to auscultation anastasiya. ABSENT: rales, rhonchi, wheezes Cardiovascular exam: PRESENT: RRR. ABSENT: diastolic murmur, rubs, systolic murmur GI/Abdominal exam: PRESENT: normal bowel sounds, soft. ABSENT: distended, guarding, mass, organolmegaly, rebound, tenderness Neurological exam: PRESENT: alert, awake, oriented to person, oriented to place, oriented to time, oriented to situation Psychiatric exam: PRESENT: appropriate affect Skin exam: PRESENT: dry, intact, warm Results Laboratory Results: 10/22/19 15:15 10/19/19 04:20 10/22/19 10/22/19 07:50 15:15 WBC 5.3 RBC 2.45 L Hgb 7.7 L Hct 22.1 L MCV 90 D MCH 31.6 MCHC 35.0 RDW 22.8 H Plt Count 384 Seg Neutrophils % Not Reportable Urine Color YELLOW Urine Appearance CLEAR Urine pH 8.0 Ur Specific [place] 1.006 Urine Protein NEGATIVE Urine Glucose (UA) 50 H Urine Ketones NEGATIVE Urine Blood NEGATIVE Urine Nitrite NEGATIVE Ur Leukocyte Esterase NEGATIVE Urine RBC (Auto) 0 Assessment and Plan - Diagnosis (1) Sickle cell pain crisis Is this a current diagnosis for this admission?: Yes Plan: Hematology consulted on admission, following actively and adjusting pain ma nagement regimen IV fluids Trend CBC, does not require transfusion currently Home Hydrea continued DVT prophylaxis Patient states he does not feel like he has acute chest which he has had many years ago Very slow to recover sickle cell pain, patient states sometimes it takes him 3 to 4 weeks to recover and he is usually hospitalized for 2-3 of those weeks Continuing pain management with mild improvement Pain improved slightly, no need for transfusion Continues on his pain regimen seems to be effective (2) Sickle-cell disease with pain Is this a current diagnosis for this admission?: Yes (3) Chronic pain Qualifiers: Chronic pain type: other chronic pain Qualified Code(s): G89.29 - Other chronic pain Is this a current diagnosis for this admission?: Yes (4) DVT prophylaxis Is this a current diagnosis for this admission?: Yes (5) Opiate dependence, continuous Is this a current diagnosis for this admission?: Yes (6) Sickle cell anemia Qualifiers: Sickle-cell associated disorders: with unspecified crisis Qualified Code(s): D57.00 - Hb-SS disease with crisis, unspecified; D57.0 - Hb-SS disease with crisis Is this a current diagnosis for this admission?: Yes - Plan Summary Summary: Continue IV Dilaudid for pain control IV fluids administration. Oxygen supplementation. Continue folic acid and hydroxyurea. Patient evaluated by oncology. Hemoglobin is currently stable. Reviewed metabolic panel which is unimpressive at this time. Check CBC and electrolytes in the morning. - Time Time Spent with patient: 15-24 minutes Medications reviewed and adjusted accordingly: Yes - Inpatient Certification Based on my medical assessment, after consideration of the patient's comorbidities, presenting symptoms, or acuity I expect that the services needed warrant INPATIENT care.: Yes I certify that my determination is in accordance with my understanding of Medicare's requirements for reasonable and necessary INPATIENT services [42 CFR 412.3e].: Yes Medical Necessity: Significant Comorbidiites Make Outpatient Treatment Too Risky, Need Close Monitoring Due to Risk of Patient Decompensation, Need for Pain Control, Risk of Complication if Not Cared For in Hospital, Risk of Diagnosis Which Will Require Inpatient Eval/Care/Monitoring
[2019-10-23] MEDS: DIPHENHYDRAMINE HCL 50 MG/ML VIAL IV PRN ×5 (01:23→20:47)
[2019-10-23] MEDS: HYDROMORPHONE HCL INJ/PF 2 MG/ML AMPULE IV PRN ×10 (01:23→22:55)
[2019-10-23] MEDS: RINGERS SOLUTION,LACTATED 1,000 ML IV PRN ×4 (03:00→23:10)
[2019-10-23] MEDS: METHADONE HCL 10 MG TABLET PO SCH ×3 (06:34→21:01)
[2019-10-23] MEDS: FOLIC ACID 1 MG TABLET PO SCH (09:18)
[2019-10-23] MEDS: DOCUSATE SODIUM 100 MG CAPSULE PO SCH ×2 (09:18→17:17)
[2019-10-23] MEDS: HYDROXYUREA 500 MG CAPSULE PO SCH (09:18)
[2019-10-23] MEDS: ENOXAPARIN SODIUM INJ 40 MG/0.4 ML DISP.SYRIN SUBCUT SCH (09:36)
--- NOTE | 2019-10-23 10:47 | PDOC PROGRESS REPORT ---
Subjective Progress Note for:: 10/23/19 Subjective:: Pain getting better, starting to walk down the cruz. Reason For Visit: SICKLE CELL CRISIS Physical Exam Vital Signs: Temp Pulse Resp BP Pulse Ox 98.5 F 88 17 120/73 100 10/22/19 23:25 10/22/19 23:25 10/22/19 23:25 10/22/19 23:25 10/22/19 23:25 Intake & Output 10/22/19 10/23/19 10/24/19 06:59 06:59 06:59 Intake Total 5600 5040 1000 Output Total 4300 1700 Balance 1300 3340 1000 Weight 85.3 kg 91.6 kg General appearance: PRESENT: no acute distress, well-developed, well-nourished Head exam: PRESENT: atraumatic, normocephalic Eye exam: PRESENT: conjunctiva pink, EOMI, PERRLA. ABSENT: scleral icterus Ear exam: PRESENT: normal external ear exam Mouth exam: PRESENT: moist, tongue midline Neck exam: ABSENT: carotid bruit, JVD, lymphadenopathy, thyromegaly Respiratory exam: PRESENT: clear to auscultation anastasiya. ABSENT: rales, rhonchi, wheezes Cardiovascular exam: PRESENT: RRR. ABSENT: diastolic murmur, rubs, systolic murmur Pulses: PRESENT: normal dorsalis pedis pul Vascular exam: PRESENT: normal capillary refill GI/Abdominal exam: PRESENT: normal bowel sounds, soft. ABSENT: distended, guarding, mass, organolmegaly, rebound, tenderness Rectal exam: PRESENT: deferred Extremities exam: PRESENT: full ROM. ABSENT: calf tenderness, clubbing, pedal edema Neurological exam: PRESENT: alert, awake, oriented to person, oriented to place, oriented to time, oriented to situation, CN II-XII grossly intact. ABSENT: motor sensory deficit Psychiatric exam: PRESENT: appropriate affect, normal mood. ABSENT: homicidal ideation, suicidal ideation Skin exam: PRESENT: dry, intact, warm. ABSENT: cyanosis, rash Results Laboratory Results: 10/22/19 15:15 10/19/19 04:20 10/22/19 15:15 WBC 5.3 RBC 2.45 L Hgb 7.7 L Hct 22.1 L MCV 90 D MCH 31.6 MCHC 35.0 RDW 22.8 H Plt Count 384 Seg Neutrophils % Not Reportable Assessment & Plan - Diagnosis (1) Sickle cell pain crisis Is this a current diagnosis for this admission?: Yes Plan: Improving, continue current therapy for another 24 hours but I believe patient may be ready for discharge by tomorrow. (2) Anemia Qualifiers: Anemia type: acquired or hereditary hemolytic anemia Hemolytic anemia type: other hemoglobinopathy Qualified Code(s): D58.2 - Other hemoglobinopathies Is this a current diagnosis for this admission?: Yes Plan: Hemoglobin is down to 7.7 but will transfuse only if it is in the low 6 range. - Time Time Spent with patient: 15-24 minutes
--- NOTE | 2019-10-23 13:02 | PDOC PROGRESS REPORT ---
Subjective Progress Note for:: 10/23/19 Subjective:: Patient was seen on morning rounds. He was found resting in bed, comfortably, on supplemental oxygen via nasal cannula. He is not home O2 dependent and SPO2 is currently within normal limits on room air. He reports generalized chest discomfort, similar to previous sickle cell crises, but unlike previous experience with acute chest syndrome. He also reports generalized itching but has no other questions or concerns at this time. He specifically denies fever, chills, palpitations, dyspnea, orthopnea, cough, abdominal pain, nausea and vomiting. No concerns per nursing. Reason For Visit: SICKLE CELL CRISIS Physical Exam Vital Signs: Temp Pulse Resp BP Pulse Ox 98.7 F 82 18 132/81 H 97 10/23/19 10:56 10/23/19 10:56 10/23/19 10:56 10/23/19 10:56 10/23/19 10:56 Intake & Output 10/22/19 10/23/19 10/24/19 06:59 06:59 06:59 Intake Total 5600 5040 1240 Output Total 4300 1700 850 Balance 1300 3340 390 Weight 85.3 kg 91.6 kg General appearance: PRESENT: no acute distress, well-developed, well-nourished Head exam: PRESENT: atraumatic, normocephalic Eye exam: PRESENT: conjunctiva pink, EOMI, PERRLA. ABSENT: scleral icterus Mouth exam: PRESENT: moist, tongue midline Respiratory exam: PRESENT: clear to auscultation anastasiya, symmetrical, unlabored, other - Supplemental oxygen by nasal cannula. ABSENT: rales, rhonchi, wheezes Cardiovascular exam: PRESENT: RRR, +S1, +S2. ABSENT: diastolic murmur, rubs, systolic murmur Vascular exam: PRESENT: normal capillary refill Extremities exam: PRESENT: full ROM. ABSENT: calf tenderness, clubbing, pedal edema Musculoskeletal exam: PRESENT: ambulatory Neurological exam: PRESENT: alert, awake, oriented to person, oriented to place, oriented to time, oriented to situation, CN II-XII grossly intact. ABSENT: motor sensory deficit Psychiatric exam: PRESENT: appropriate affect, normal mood. ABSENT: homicidal ideation, suicidal ideation Skin exam: PRESENT: dry, intact, warm. ABSENT: cyanosis, rash Results Laboratory Results: 10/22/19 15:15 10/19/19 04:20 07/02/20 15:15 WBC 5.3 RBC 2.45 L Hgb 7.7 L Hct 22.1 L MCV 90 D MCH 31.6 MCHC 35.0 RDW 22.8 H Plt Count 384 Seg Neutrophils % Not Reportable Assessment and Plan - Diagnosis (1) Sickle cell pain crisis Is this a current diagnosis for this admission?: Yes Plan: Hematology consulted on admission, following actively and adjusting pain managem ent regimen Continue generous IV fluids Continue home dose Hydrea Continue daily folic acid DVT prophylaxis Pain management per treatment per hematology. He is encouraged to ambulate. Continue nonpharmacological interventions (supplemental oxygen, heating pad, ambulation). (2) Chronic pain Qualifiers: Chronic pain type: other chronic pain Qualified Code(s): G89.29 - Other chronic pain Is this a current diagnosis for this admission?: Yes Plan: Pain management regiment per his established pattern weaver, Dr. Medellin. (3) Opiate dependence, continuous Is this a current diagnosis for this admission?: Yes Plan: As above. (4) Sickle cell anemia Qualifiers: Sickle-cell associated disorders: with unspecified crisis Qualified Code(s): D57.00 - Hb-SS disease with crisis, unspecified; D57.0 - Hb-SS disease with crisis Is this a current diagnosis for this admission?: Yes Plan: Patient's established pattern weaver, Dr. Medellin, is consulted. Continue home dose hydroxyurea. (5) DVT prophylaxis Is this a current diagnosis for this admission?: Yes Plan: Lovenox daily Encourage ambulation - Time Time Spent with patient: 15-24 minutes Medications reviewed and adjusted accordingly: Yes Anticipated discharge: Home
[2019-10-24] MEDS: DIPHENHYDRAMINE HCL 50 MG/ML VIAL IV PRN ×5 (01:03→22:36)
[2019-10-24] MEDS: HYDROMORPHONE HCL INJ/PF 2 MG/ML AMPULE IV PRN ×10 (01:03→22:36)
[2019-10-24] MEDS: METHADONE HCL 10 MG TABLET PO SCH ×3 (06:14→21:54)
[2019-10-24] MEDS: RINGERS SOLUTION,LACTATED 1,000 ML IV PRN ×2 (06:14→16:14)
[2019-10-24 07:02] LABS: HEMATOCRIT 22.6 % (37.9-51.0); MEAN CORPUSCULAR HEMOGLOBIN 32.1 pg (27.0-33.4); MEAN CORPUSCULAR HGB CONC 35.1 g/dL (32.0-36.0); MEAN CORPUSCULAR VOLUME 92 fl (80-97); PLATELET COUNT 389 10^3/uL (150-450); RED BLOOD COUNT 2.47 10^6/uL (4.35-5.55); WHITE BLOOD COUNT 6.6 10^3/uL (4.0-10.5)
[2019-10-24 07:29] LABS: ABSOLUTE LYMPHOCYTES# (MANUAL) 2.6 10^3/uL (0.5-4.7); ABSOLUTE MONOCYTES # (MANUAL) 0.9 10^3/uL (0.1-1.4); ANISOCYTOSIS 3+; BASOPHILS % (MANUAL) 0 % (0-2); EOSINOPHILS % (MANUAL) 3 % (0-6); LYMPHOCYTES % (MANUAL) 40 % (13-45); MONOCYTES % (MANUAL) 14 % (3-13); NUCLEATED RED BLOOD CELLS 3 /100 WBC (0); OVALOCYTES 1+; POIKILOCYTOSIS 2+; POLYCHROMASIA 2+; SEGMENTED NEUTROPHILS % (MAN) 43 % (42-78); TOTAL CELLS COUNTED 100
[2019-10-24 07:30] LABS: PLATELET COMMENT ADEQUATE; SICKLE RED CELLS 2+
[2019-10-24 08:07] LABS: HEMOGLOBIN 7.9 g/dL (13.5-17.0)
[2019-10-24] MEDS: DOCUSATE SODIUM 100 MG CAPSULE PO SCH ×2 (09:09→18:30)
[2019-10-24] MEDS: HYDROXYUREA 500 MG CAPSULE PO SCH (09:09)
[2019-10-24] MEDS: FOLIC ACID 1 MG TABLET PO SCH (09:09)
[2019-10-24] MEDS: ENOXAPARIN SODIUM INJ 40 MG/0.4 ML DISP.SYRIN SUBCUT SCH (09:24)
--- NOTE | 2019-10-24 13:13 | PDOC PROGRESS REPORT ---
Subjective Progress Note for:: 10/24/19 Subjective:: Patient getting better, still feels like he needs more time. Still having considerable pain at times. Reason For Visit: SICKLE CELL CRISIS Physical Exam Vital Signs: Temp Pulse Resp BP Pulse Ox 97.9 F 85 17 132/84 H 99 10/24/19 11:55 10/24/19 11:55 10/24/19 11:55 10/24/19 11:55 10/24/19 11:55 Intake & Output 10/23/19 10/24/19 10/25/19 06:59 06:59 06:59 Intake Total 5040 5072 118 Output Total 1700 6383 1525 Balance 3340 347 -1407 Weight 91.6 kg 92.7 kg General appearance: PRESENT: no acute distress, well-developed, well-nourished Head exam: PRESENT: atraumatic, normocephalic Eye exam: PRESENT: conjunctiva pink, EOMI, PERRLA. ABSENT: scleral icterus Ear exam: PRESENT: normal external ear exam Mouth exam: PRESENT: moist, tongue midline Neck exam: ABSENT: carotid bruit, JVD, lymphadenopathy, thyromegaly Respiratory exam: PRESENT: clear to auscultation anastasiya. ABSENT: rales, rhonchi, wheezes Cardiovascular exam: PRESENT: RRR. ABSENT: diastolic murmur, rubs, systolic murmur Pulses: PRESENT: normal dorsalis pedis pul Vascular exam: PRESENT: normal capillary refill GI/Abdominal exam: PRESENT: normal bowel sounds, soft. ABSENT: distended, guard ing, mass, organolmegaly, rebound, tenderness Rectal exam: PRESENT: deferred Extremities exam: PRESENT: full ROM. ABSENT: calf tenderness, clubbing, pedal edema Neurological exam: PRESENT: alert, awake, oriented to person, oriented to place, oriented to time, oriented to situation, CN II-XII grossly intact. ABSENT: motor sensory deficit Psychiatric exam: PRESENT: appropriate affect, normal mood. ABSENT: homicidal ideation, suicidal ideation Skin exam: PRESENT: dry, intact, warm. ABSENT: cyanosis, rash Results Laboratory Results: 10/24/19 06:25 10/19/19 04:20 10/24/19 06:25 WBC 6.6 RBC 2.47 L Hgb 7.9 L Hct 22.6 L MCV 92 MCH 32.1 MCHC 35.1 RDW 23.0 H Plt Count 389 Seg Neutrophils % Not Reportable Assessment & Plan - Diagnosis (1) Sickle cell pain crisis Is this a current diagnosis for this admission?: Yes Plan: Continue current care for another 24 hours and reevaluate tomorrow. (2) Anemia Qualifiers: Anemia type: acquired or hereditary hemolytic anemia Hemolytic anemia type: other hemoglobinopathy Qualified Code(s): D58.2 - Other hemoglobinopathies Is this a current diagnosis for this admission?: Yes Plan: Last hemoglobin in the 7 range. Hold on transfusion. - Time Time Spent with patient: 15-24 minutes
--- NOTE | 2019-10-24 18:32 | PDOC PROGRESS REPORT ---
Subjective Progress Note for:: 10/24/19 Subjective:: Patient was seen on afternoon rounds. He was found resting in bed, comfortably, on supplemental oxygen via nasal cannula. He is not home O2 dependent and SPO2 is currently within normal limits on room air. He reports generalized chest discomfort, though somewhat improved. H has no other questions or concerns at this time. He specifically denies fever, chills, palpitations, dyspnea, orthopnea, cough, abdominal pain, nausea and vomiting. No concerns per nursing. Reason For Visit: SICKLE CELL CRISIS Physical Exam Vital Signs: Temp Pulse Resp BP Pulse Ox 98.4 F 79 16 125/85 100 10/24/19 16:48 10/24/19 16:48 10/24/19 16:48 10/24/19 16:48 10/24/19 16:48 Intake & Output 10/23/19 10/24/19 10/25/19 06:59 06:59 06:59 Intake Total 5040 5072 1118 Output Total 1700 4725 1525 Balance 3340 347 -407 Weight 91.6 kg 92.7 kg General appearance: PRESENT: no acute distress, well-developed, well-nourished - overweight Head exam: PRESENT: atraumatic, normocephalic Eye exam: PRESENT: conjunctiva pink, EOMI, PERRLA. ABSENT: scleral icterus Mouth exam: PRESENT: moist, tongue midline Respiratory exam: PRESENT: clear to auscultation anastasiya, symmetrical, unlabored. ABSENT: rales, rhonchi, wheezes Cardiovascular exam: PRESENT: RRR. ABSENT: diastolic murmur, rubs, systolic murmur Extremities exam: PRESENT: full ROM. ABSENT: calf tenderness, clubbing, pedal edema Musculoskeletal exam: PRESENT: ambulatory Neurological exam: PRESENT: alert, awake, oriented to person, oriented to place, oriented to time, oriented to situation, CN II-XII grossly intact. ABSENT: motor sensory deficit Psychiatric exam: PRESENT: appropriate affect, normal mood. ABSENT: homicidal ideation, suicidal ideation Skin exam: PRESENT: dry, intact, warm. ABSENT: cyanosis, rash Results Laboratory Results: 10/24/19 06:25 10/19/19 04:20 10/24/19 06:25 WBC 6.6 RBC 2.47 L Hgb 7.9 L Hct 22.6 L MCV 92 MCH 32.1 MCHC 35.1 RDW 23.0 H Plt Count 389 Seg Neutrophils % Not Reportable Assessment and Plan - Diagnosis (1) Sickle cell pain crisis Is this a current diagnosis for this admission?: Yes Plan: Hematology consulted on admission, following actively and adjusting pain management regimen Continue generous IV fluids Continue home dose Hydrea Continue daily folic acid DVT prophylaxis Pain management per treatment per hematology. He is encouraged to ambulate. Continue nonpharmacological interventions (supplemental oxygen, heating pad, ambulation). (2) Chronic pain Qualifiers: Chronic pain type: other chronic pain Qualified Code(s): G89.29 - Other chronic pain Is this a current diagnosis for this admission?: Yes Plan: Pain management regiment per his established flat folder, Dr. Medellin. (3) Opiate dependence, continuous Is this a current diagnosis for this admission?: Yes Plan: As above. (4) Sickle cell anemia Qualifiers: Sickle-cell associated disorders: with unspecified crisis Qualified Code(s): D57.00 - Hb-SS disease with crisis, unspecified; D57.0 - Hb-SS disease with crisis Is this a current diagnosis for this admission?: Yes Plan: Patient's established flat folder, Dr. Medellin, is consulted. Continue home dose hydroxyurea. (5) DVT prophylaxis Is this a current diagnosis for this admission?: Yes Plan: Lovenox daily Encourage ambulation - Time Time Spent with patient: Less than 15 minutes Medications reviewed and adjusted accordingly: Yes Anticipated discharge: Home
[2019-10-25] MEDS: HYDROMORPHONE HCL INJ/PF 2 MG/ML AMPULE IV PRN ×12 (00:39→23:59)
[2019-10-25] MEDS: DIPHENHYDRAMINE HCL 50 MG/ML VIAL IV PRN ×5 (02:41→20:00)
[2019-10-25] MEDS: METHADONE HCL 10 MG TABLET PO SCH ×3 (06:41→21:58)
[2019-10-25] MEDS: FOLIC ACID 1 MG TABLET PO SCH (09:22)
[2019-10-25] MEDS: ENOXAPARIN SODIUM INJ 40 MG/0.4 ML DISP.SYRIN SUBCUT SCH (09:22)
[2019-10-25] MEDS: HYDROXYUREA 500 MG CAPSULE PO SCH (09:22)
[2019-10-25] MEDS: DOCUSATE SODIUM 100 MG CAPSULE PO SCH ×2 (09:22→17:49)
[2019-10-25] MEDS: RINGERS SOLUTION,LACTATED 1,000 ML IV PRN ×2 (09:54→15:45)
--- NOTE | 2019-10-25 14:26 | PDOC PROGRESS REPORT ---
Subjective Progress Note for:: 10/25/19 Subjective:: Patient was seen on afternoon rounds. He was found resting in bed, comfortably, on supplemental oxygen via nasal cannula. Per nursing, patient had been speaking about wanting to be discharged throughout the morning. Discussed with Dr. Medellin; approved discharge. When patient was informed of d/c home, he became upset and stated that nursing had misrepresented him. He stated that he "made a deal with Dr. Medellin on Saturday that I would stay until Saturday. We ta lked about that yesterday." Attempted to encourage patient toward discharge; patient adamantly declined. Spoke with Dr. Medellin, a second time, who agreed patient should remain until tomorrow. He denies fever, chills, palpitations, dyspnea, orthopnea, cough, abdominal pain, nausea and vomiting. Reason For Visit: SICKLE CELL CRISIS Physical Exam Vital Signs: Temp Pulse Resp BP Pulse Ox 98.6 F 86 16 128/78 H 96 10/25/19 12:02 10/25/19 12:02 10/25/19 12:02 10/25/19 12:02 10/25/19 12:02 Intake & Output 10/24/19 10/25/19 10/26/19 06:59 06:59 06:59 Intake Total 5098 2594 720 Output Total 4710 2325 1600 Balance 347 269 -880 Weight 92.7 kg 92.7 kg General appearance: PRESENT: no acute distress, well-developed, well-nourished - Weight Head exam: PRESENT: atraumatic, normocephalic Eye exam: PRESENT: conjunctiva pink, EOMI, PERRLA. ABSENT: scleral icterus Mouth exam: PRESENT: moist, tongue midline Respiratory exam: PRESENT: symmetrical, unlabored, other - Supplemental oxygen via nasal cannula. ABSENT: accessory muscle use, retraction Cardiovascular exam: PRESENT: RRR Extremities exam: PRESENT: full ROM. ABSENT: calf tenderness, clubbing, pedal edema Musculoskeletal exam: PRESENT: ambulatory Neurological exam: PRESENT: alert, awake, oriented to person, oriented to place, oriented to time, oriented to situation, CN II-XII grossly intact. ABSENT: motor sensory deficit Psychiatric exam: PRESENT: appropriate affect, normal mood. ABSENT: homicidal ideation, suicidal ideation Skin exam: PRESENT: dry, intact, warm. ABSENT: cyanosis, rash Results Laboratory Results: 10/24/19 06:25 10/19/19 04:20 Assessment and Plan - Diagnosis (1) Sickle cell pain crisis Is this a current diagnosis for this admission?: Yes Plan: Hematology consulted on admission, following actively and adjusting pain management regimen Continue generous IV fluids Continue home dose Hydrea Continue daily folic acid DVT prophylaxis Pain management per treatment per hematology. He is encouraged to ambulate. Continue nonpharmacological interventions (supplemental oxygen, heating pad, ambulation). (2) Chronic pain Qualifiers: Chronic pain type: other chronic pain Qualified Code(s): G89.29 - Other chronic pain Is this a current diagnosis for this admission?: Yes Plan: Pain management regiment per his established technology strategist, Dr. Medellin. (3) Opiate dependence, continuous Is this a current diagnosis for this admission?: Yes Plan: As above. (4) Sickle cell anemia Qualifiers: Sickle-cell associated disorders: with unspecified crisis Qualified Code(s): D57.00 - Hb-SS disease with crisis, unspecified; D57.0 - Hb-SS disease with crisis Is this a current diagnosis for this admission?: Yes Plan: Patient's established technology strategist, Dr. Medellin, is consulted. Continue home dose hydroxyurea. (5) DVT prophylaxis Is this a current diagnosis for this admission?: Yes Plan: Lovenox daily Encourage ambulation - Time Time Spent with patient: 25-34 minutes Medications reviewed and adjusted accordingly: Yes Anticipated discharge: Home with Homehealth Within: within 24 hours
[2019-10-26] MEDS: RINGERS SOLUTION,LACTATED 1,000 ML IV PRN ×2 (00:04→06:24)
[2019-10-26] MEDS: HYDROMORPHONE HCL INJ/PF 2 MG/ML AMPULE IV PRN ×6 (02:19→12:48)
[2019-10-26] MEDS: DIPHENHYDRAMINE HCL 50 MG/ML VIAL IV PRN ×4 (04:21→12:46)
[2019-10-26] MEDS: METHADONE HCL 10 MG TABLET PO SCH (06:24)
[2019-10-26 06:59] LABS: HEMATOCRIT 24.9 % (37.9-51.0); HEMOGLOBIN 8.6 g/dL (13.5-17.0); MEAN CORPUSCULAR HEMOGLOBIN 32.1 pg (27.0-33.4); MEAN CORPUSCULAR HGB CONC 34.7 g/dL (32.0-36.0); MEAN CORPUSCULAR VOLUME 92 fl (80-97); PLATELET COUNT 458 10^3/uL (150-450); RED BLOOD COUNT 2.69 10^6/uL (4.35-5.55); RED CELL DISTRIBUTION WIDTH 25.3 % (11.5-14.0); WHITE BLOOD COUNT 6.9 10^3/uL (4.0-10.5)
[2019-10-26 07:35] LABS: ABSOLUTE LYMPHOCYTES# (MANUAL) 2.7 10^3/uL (0.5-4.7); ABSOLUTE MONOCYTES # (MANUAL) 0.6 10^3/uL (0.1-1.4); BASOPHILS % (MANUAL) 0 % (0-2); EOSINOPHILS % (MANUAL) 3 % (0-6); LYMPHOCYTES % (MANUAL) 39 % (13-45); MONOCYTES % (MANUAL) 9 % (3-13); NUCLEATED RED BLOOD CELLS 3 /100 WBC (0); SEGMENTED NEUTROPHILS % (MAN) 49 % (42-78); TOTAL CELLS COUNTED 100
[2019-10-26 07:40] LABS: ANISOCYTOSIS 3+; POIKILOCYTOSIS 2+; POLYCHROMASIA 2+; SICKLE RED CELLS 2+
[2019-10-26 07:41] LABS: TARGET CELLS 1+
[2019-10-26 07:43] LABS: PLATELET COMMENT INCREASED; PLATELET LARGE PRESENT; SCHISTOCYTES SLIGHT
[2019-10-26 07:46] LABS: OVALOCYTES 2+; TEAR DROP CELLS SLIGHT
--- NOTE | 2019-10-26 07:53 | PDOC PROGRESS REPORT ---
Subjective Progress Note for:: 10/26/19 Subjective:: Doing better,ready to go home today Reason For Visit: SICKLE CELL CRISIS Physical Exam Vital Signs: Temp Pulse Resp BP Pulse Ox 97.8 F 79 17 141/90 H 99 10/25/19 23:33 10/25/19 23:33 10/25/19 23:33 10/25/19 23:33 10/25/19 23:33 Intake & Output 10/25/19 10/26/19 10/27/19 06:59 06:59 06:59 Intake Total 2594 4097 Output Total 2325 3200 Balance 269 897 Weight 92.7 kg 92.7 kg General appearance: PRESENT: no acute distress, well-developed, well-nourished Head exam: PRESENT: atraumatic, normocephalic Eye exam: PRESENT: conjunctiva pink, EOMI, PERRLA. ABSENT: scleral icterus Ear exam: PRESENT: normal external ear exam Mouth exam: PRESENT: moist, tongue midline Neck exam: ABSENT: carotid bruit, JVD, lymphadenopathy, thyromegaly Respiratory exam: PRESENT: clear to auscultation anastasiya. ABSENT: rales, rhonchi, wheezes Cardiovascular exam: PRESENT: RRR. ABSENT: diastolic murmur, rubs, systolic murmur Pulses: PRESENT: normal dorsalis pedis pul Vascular exam: PRESENT: normal capillary refill GI/Abdominal exam: PRESENT: normal bowel sounds, soft. ABSENT: distended, guarding, mass, organolmegaly, rebound, tenderness Rectal exam: PRESENT: deferred Extremities exam: PRESENT: full ROM. ABSENT: calf tenderness, clubbing, pedal edema Neurological exam: PRESENT: alert, awake, oriented to person, oriented to place, oriented to time, oriented to situation, CN II-XII grossly intact. ABSENT: motor sensory deficit Psychiatric exam: PRESENT: appropriate affect, normal mood. ABSENT: homicidal ideation, suicidal ideation Skin exam: PRESENT: dry, intact, warm. ABSENT: cyanosis, rash Results Laboratory Results: 10/26/19 06:35 10/19/19 04:20 10/26/19 06:35 WBC 6.9 RBC 2.69 L Hgb 8.6 L Hct 24.9 L MCV 92 MCH 32.1 MCHC 34.7 RDW 25.3 H Plt Count 458 H Seg Neutrophils % Not Reportable Assessment & Plan - Diagnosis (1) Sickle cell pain crisis Is this a current diagnosis for this admission?: Yes Plan: Improved for d/c. F/u set up. (2) Anemia Qualifiers: Anemia type: acquired or hereditary hemolytic anemia Hemolytic anemia type: other hemoglobinopathy Qualified Code(s): D58.2 - Other hemoglobinopathies Is this a current diagnosis for this admission?: Yes Plan: hb stable - Time Time Spent with patient: 15-24 minutes
--- NOTE | 2019-10-26 09:32 | PDOC DISCHARGE SUMMARY ---
Impression - Admit/DC Date/PCP Admission Date/Primary Care Provider: 10/16/19 22:05 BETH MEDELLIN MD Discharge Date: 10/26/19 - Discharge Diagnosis (1) Sickle cell pain crisis Is this a current diagnosis for this admission?: Yes (2) Chronic pain Is this a current diagnosis for this admission?: Yes (3) Opiate dependence, continuous Is this a current diagnosis for this admission?: Yes (4) Sickle cell anemia Is this a current diagnosis for this admission?: Yes (5) DVT prophylaxis Is this a current diagnosis for this admission?: Yes - Additional Information Resuscitation Status: Full Code Discharge Diet: Regular Discharge Activity: Activity As Tolerated, Balance Activity w/Rest, Slowly Increase Activity Referrals: BETH MEDELLIN MD [Primary Care Provider] - 10/27/19 11:00 am (PT COMES IN EVERYDAY FOR HYDRATION AND DALAUDID ) Home Medications: Folic Acid [Folvite 1 mg Tablet] 1 mg PO DAILY 02/19/19 Hydroxyurea [Hydrea 500 mg Capsule] 1,500 mg PO DAILY 02/19/19 Oxycodone HCl [Oxy-Ir 5 mg Tablet] 10 mg PO Q4HP PRN 02/19/19 Ibuprofen [Ibu] 600 mg PO Q8HP PRN 10/17/19 Acetaminophen [Tylenol 325 mg Tablet] 650 mg PO Q4HP PRN tablet 10/26/19 Baclofen [Baclofen 10 mg Tablet] 10 mg PO BIDP PRN tablet 10/26/19 Docusate Sodium [Colace 100 mg Capsule] 100 mg PO BID capsule 10/26/19 Folic Acid [Folvite 1 mg Tablet] 1 mg PO DAILY tablet 10/26/19 Hydroxyurea [Hydrea 500 mg Capsule] 1,500 mg PO DAILY capsule 10/26/19 Melatonin [Melatonin 5 mg Tablet] 10 mg PO HSP PRN tablet 10/26/19 Methadone HCl [Dolophine 10 mg Tablet] 5 mg PO Q8 tablet 10/26/19 Pseudoephedrine HCl [Sudafed 30 mg Tablet] 30 mg PO Q6HP PRN tablet 10/26/19 History of Present Illiness History of Present Illness: IPer H&P by Dr. Bo: MARISA GARBER is a 38 year old male who presents the emergency room with a one-week history of generalized pain. He admits constant, severe deep aching pain in the bones, muscles and joints of all of his extremities as well as generalized severe, constant colicky abdominal pain with somewhat more intense pain in the right upper quadrant. His pain has been gradually worsening over the last week despite numerous office visits and ER visits for IV fluids and narcotic analgesics. His pain is been accompanied by lightheadedness and associated with increasing dyspnea over the last 24 hours. He denies other associated or accompanying signs and symptoms. His pain is increased with activity and reduced by oral oxycodone, IV fluids and IV Dilaudid. He admits numerous prior similar episodes related to his sickle cell disease. In the emergency room he was found to have a reticulocyte count of 12.69 and the emergency room provider received instructions from Dr. 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 Patient was subsequently admitted to the hospital for further evaluation treatment. Hospital Course Hospital Course: (1) Sickle cell pain crisis Hematology consulted on admission, following actively and adjusting pain management regimen Received generous IV fluids Continued on home dose Hydrea Continued on daily folic acid Received DVT prophylaxis Pain management per hematology. He was encouraged to ambulate. Encouraged nonpharmacological interventions (supplemental oxygen, heating pad, ambulation). (2) Chronic pain Pain management regiment per his established manager data warehouse, Dr. Medellin. (3) Opiate dependence, continuous As above. (4) Sickle cell anemia As above. (5) DVT prophylaxis Lovenox daily Encourage ambulation Physical Exam Vital Signs: Temp Pulse Resp BP Pulse Ox 97.8 F 79 17 141/90 H 99 10/25/19 23:33 10/25/19 23:33 10/25/19 23:33 10/25/19 23:33 10/25/19 23:33 Intake & Output 10/25/19 10/26/19 10/27/19 06:59 06:59 06:59 Intake Total 7439 3837 Output Total 8671 7890 Balance 269 897 Weight 92.7 kg 92.7 kg General appearance: PRESENT: no acute distress, well-developed, well-nourished - overweight Head exam: PRESENT: atraumatic, normocephalic Eye exam: PRESENT: conjunctiva pink, EOMI, PERRLA. ABSENT: scleral icterus Mouth exam: PRESENT: moist, tongue midline Respiratory exam: PRESENT: clear to auscultation anastasiya. ABSENT: rales, rhonchi, wheezes Cardiovascular exam: PRESENT: RRR. ABSENT: diastolic murmur, rubs, systolic murmur Extremities exam: PRESENT: full ROM. ABSENT: calf tenderness, clubbing, pedal edema Musculoskeletal exam: PRESENT: ambulatory Neurological exam: PRESENT: alert, awake, oriented to person, oriented to place, oriented to time, oriented to situation, CN II-XII grossly intact. ABSENT: motor sensory deficit Psychiatric exam: PRESENT: appropriate affect, normal mood. ABSENT: homicidal ideation, suicidal ideation Skin exam: PRESENT: dry, intact, warm. ABSENT: cyanosis, rash Results Laboratory Results: WBC 6.9 10^3/uL (4.0-10.5) 10/26/19 06:35 RBC 2.69 10^6/uL (4.35-5.55) L 10/26/19 06:35 Hgb 8.6 g/dL (13.5-17.0) L 10/26/19 06:35 Hct 24.9 % (37.9-51.0) L 10/26/19 06:35 MCV 92 fl (80-97) 10/26/19 06:35 MCH 32.1 pg (27.0-33.4) 10/26/19 06:35 MCHC 34.7 g/dL (32.0-36.0) 10/26/19 06:35 RDW 25.3 % (11.5-14.0) H 10/26/19 06:35 Plt Count 458 10^3/uL (150-450) H 10/26/19 06:35 Lymph % (Auto) Not Reportable 10/26/19 06:35 Green % (Auto) Not Reportable 10/26/19 06:35 Eos % (Auto) Not Reportable 10/26/19 06:35 Baso % (Auto) Not Reportable 10/26/19 06:35 Reticulocyte # 0.346 10^6/uL (0.028-0.122) H 10/16/19 20:20 Absolute Neuts (auto) Not Reportable 10/26/19 06:35 Absolute Lymphs (auto) Not Reportable 10/26/19 06:35 Absolute Monos (auto) Not Reportable 10/26/19 06:35 Absolute Eos (auto) Not Reportable 10/26/19 06:35 Absolute Basos (auto) Not Reportable 10/26/19 06:35 Total Counted 100 10/26/19 06:35 Seg Neutrophils % Not Reportable 10/26/19 06:35 Seg Neuts % (Manual) 49 % (42-78) 10/26/19 06:35 Band Neutrophils % 1 % (3-5) L 10/22/19 15:15 Lymphocytes % (Manual) 39 % (13-45) 10/26/19 06:35 Monocytes % (Manual) 9 % (3-13) 10/26/19 06:35 Eosinophils % (Manual) 3 % (0-6) 10/26/19 06:35 Basophils % (Manual) 0 % (0-2) 10/26/19 06:35 Abs Neuts (Manual) 3.4 10^3/uL (1.7-8.2) 10/26/19 06:35 Abs Lymphs (Manual) 2.7 10^3/uL (0.5-4.7) 10/26/19 06:35 Abs Monocytes (Manual) 0.6 10^3/uL (0.1-1.4) 10/26/19 06:35 Absolute Eos (Manual) 0.2 10^3/uL (0.0-0.6) 10/26/19 06:35 Abs Basophils (Manual) 0.0 10^3/uL (0.0-0.2) 10/26/19 06:35 Nucleated RBCs 3 /100 WBC (0) 10/26/19 06:35 Large Platelets PRESENT 10/26/19 06:35 Platelet Comment INCREASED 10/26/19 06:35 Polychromasia 2+ 10/26/19 06:35 Poikilocytosis 2+ 10/26/19 06:35 Anisocytosis 3+ 10/26/19 06:35 Macrocytosis SLIGHT 10/26/19 06:35 Sickle Cells 2+ 10/26/19 06:35 Target Cells 1+ 10/26/19 06:35 Tear Drop Cells SLIGHT 10/26/19 06:35 Ovalocytes 2+ 10/26/19 06:35 Maria Elena Cells SLIGHT 10/16/19 20:20 Schistocytes SLIGHT 07/06/20 06:35 Retic Count (auto) 12.69 % (0.66-2.85) H 10/16/19 20:20 Sodium 137.7 mmol/L (137-145) 10/19/19 04:20 Potassium 4.2 mmol/L (3.6-5.0) 10/19/19 04:20 Chloride 99 mmol/L (98-107) 10/19/19 04:20 Carbon Dioxide 31 mmol/L (22-30) H 10/19/19 04:20 Anion Gap 8 (5-19) 10/19/19 04:20 BUN 5 mg/dL (7-20) L 10/19/19 04:20 Creatinine 0.69 mg/dL (0.52-1.25) 10/19/19 04:20 Est GFR ( Amer) > 60 (>60) 10/19/19 04:20 Est GFR (MDRD) Non-Af > 60 (>60) 10/19/19 04:20 Glucose 118 mg/dL (75-110) H 10/19/19 04:20 Calcium 9.0 mg/dL (8.4-10.2) 10/19/19 04:20 Magnesium 1.9 mg/dL (1.6-2.3) 10/19/19 04:20 Total Bilirubin 2.1 mg/dL (0.2-1.3) H 10/16/19 20:20 Direct Bilirubin 0.1 mg/dL (0.0-0.4) 10/16/19 20:20 Neonat Total Bilirubin Not Reportable 10/16/19 20:20 Neonat Direct Bilirubin Not Reportable 10/16/19 20:20 Neonat Indirect Bili Not Reportable 10/16/19 20:20 AST 35 U/L (17-59) 10/16/19 20:20 ALT 28 U/L (<50) 10/16/19 20:20 Alkaline Phosphatase 86 U/L (38-126) 10/16/19 20:20 Total Protein 8.8 g/dL (6.3-8.2) H 10/16/19 20:20 Albumin 4.6 g/dL (3.5-5.0) 10/16/19 20:20 Urine Color YELLOW 10/22/19 07:50 Urine Appearance CLEAR 10/22/19 07:50 Urine pH 8.0 (5.0-9.0) 10/22/19 07:50 Ur Specific [place] 1.006 10/22/19 07:50 Urine Protein NEGATIVE mg/dL (NEGATIVE) 10/22/19 07:50 Urine Glucose (UA) 50 mg/dL (NEGATIVE) H 10/22/19 07:50 Urine Ketones NEGATIVE mg/dL (NEGATIVE) 10/22/19 07:50 Urine Blood NEGATIVE (NEGATIVE) 10/22/19 07:50 Urine Nitrite NEGATIVE (NEGATIVE) 10/22/19 07:50 Urine Bilirubin NEGATIVE (NEGATIVE) 10/22/19 07:50 Urine Urobilinogen NEGATIVE mg/dL (<2.0) 10/22/19 07:50 Ur Leukocyte Esterase NEGATIVE (NEGATIVE) 10/22/19 07:50 Urine RBC (Auto) 0 /HPF 10/22/19 07:50 Urine Mucus (Auto) RARE /LPF 10/22/19 07:50 Urine Ascorbic Acid NEGATIVE (NEGATIVE) 10/22/19 07:50 SARS-CoV-2 (PCR) NEGATIVE (NEGATIVE) 10/20/19 15:00 Plan Plan of Treatment: Patient is discharged to home in stable condition. He is adised to follow up with his primary care provider as scheduled and as needed. Follow up with Dr. Mckeon this week as previously scheduled. Take your medications as prescribed. Drink plenty of fluids. Return t the emergency department as needed for concerning symptoms. Time Spent: Greater than 30 Minutes Stroke Is this a Stroke Patient?: No Acute Heart Failure - Is this a Heart Failure Patient?: No
[2019-10-26] MEDS: ENOXAPARIN SODIUM INJ 40 MG/0.4 ML DISP.SYRIN SUBCUT SCH (09:43)
[2019-10-26] MEDS: FOLIC ACID 1 MG TABLET PO SCH (09:43)
[2019-10-26] MEDS: HYDROXYUREA 500 MG CAPSULE PO SCH (09:43)
[2019-10-26] MEDS: DOCUSATE SODIUM 100 MG CAPSULE PO SCH (09:43)
[2019-10-26] MEDS ORDERED: METHADONE HCL 10 MG TABLET PO SCH (14:00)
[2019-10-26 16:58] VITALS: BP 112/79
== END 2019-10-26 14:51 | disposition home or self-care (01) | DRG 812 ==
LOC: ER 15:16 → EH 22:05 → 4S 22:56
PROVIDERS: ADMIT Emergency Medicine; ATTEND Registered Nurse
DX: D57.00 Hb-SS disease with crisis, unspecified (principal); F11.20 Opioid dependence, uncomplicated; G89.29 Other chronic pain; F32.9 Major depressive disorder, single episode, unspecified; Z90.49 Acquired absence of other specified parts of digestive tract; Z91.040 Latex allergy status; Z88.6 Allergy status to analgesic agent; Z88.1 Allergy status to other antibiotic agents; Z88.8 Allergy status to other drugs, medicaments and biological substances; Z82.49 Family history of ischemic heart disease and other diseases of the circulatory system; Z03.818 Encounter for observation for suspected exposure to other biological agents ruled out; Z91.018 Allergy to other foods; Z88.5 Allergy status to narcotic agent
CPT/HCPCS: 36415; 36591; 71045; 80048; 80053; 81001; 83615; 83735; 85025; 85027; 85045; 87635; 93005; 93010; 94799; 96361; 96365; 96374; 96375; 96376; 99284; C9803; J1170; J1200; J1642; J1650; J3490; J7030; J7120

== ENCOUNTER 2019-10-27 13:07 | Outpatient (CLI) | payer MEDICARE, MEDICAID ==
[~2019-10-27 13:07] MED LIST changes: -HYDROMORPHONE HCL INJ/PF 2 MG/ML AMPULE IV PRN; +NORMAL SALINE 1000 ML 1,000 ML IV PRN
[2019-10-27] MEDS ORDERED: HYDROMORPHONE HCL INJ/PF 2 MG/ML AMPULE IV PRN (13:08)
[2019-10-27 13:47] VITALS: BP 133/72
== END 2019-10-27 14:35 | disposition home or self-care (01) ==
LOC: II 13:07 → 5TH 13:11 → II 14:35
PROVIDERS: ADMIT Emergency Medicine; ATTEND Internal Medicine
DX: D57.1 Sickle-cell disease without crisis (principal); E86.0 Dehydration; R52 Pain, unspecified
CPT/HCPCS: 96365; 96375; 96361; J1200; J1170; J1642

== ENCOUNTER 2019-10-28 09:36 | Outpatient (CLI) | payer MEDICARE, MEDICAID ==
[2019-10-28] MEDS ORDERED: DIPHENHYDRAMINE HCL 25 MG in NORMAL SALINE 50 ML IV PRN (09:42)
[2019-10-28] MEDS ORDERED: HYDROMORPHONE HCL INJ/PF 2 MG/ML AMPULE IV PRN (09:43)
[2019-10-28 09:48] VITALS: BP 123/77
[2019-10-28] MEDS ORDERED: NORMAL SALINE 1000 ML 1,000 ML IV ONE (10:00)
== END 2019-10-28 11:15 | disposition home or self-care (01) ==
LOC: II 09:36 → 5TH 09:47 → II 11:15
PROVIDERS: ADMIT Emergency Medicine; ATTEND Internal Medicine
DX: D57.1 Sickle-cell disease without crisis (principal); E86.0 Dehydration; R52 Pain, unspecified
CPT/HCPCS: 96365; 96375; 96361; J1200; J1170; J1642

== ENCOUNTER 2019-10-29 08:02 | Outpatient (CLI) | payer MEDICARE, MEDICAID ==
[~2019-10-29 08:02] MED LIST changes: +HYDROMORPHONE HCL INJ/PF 2 MG/ML AMPULE IV PRN
[2019-10-29 08:14] VITALS: BP 112/72
== END 2019-10-29 09:42 | disposition home or self-care (01) ==
LOC: II 08:02 → 5TH 08:03 → II 09:42
PROVIDERS: ADMIT Emergency Medicine; ATTEND Internal Medicine
DX: D57.1 Sickle-cell disease without crisis (principal); E86.0 Dehydration; R52 Pain, unspecified
CPT/HCPCS: 96365; 96375; 96361; J1200; J1170; J1642

== ENCOUNTER 2019-10-30 11:46 | Outpatient (CLI) | payer MEDICARE, MEDICAID ==
[2019-10-30] MEDS ORDERED: DIPHENHYDRAMINE HCL 25 MG in NORMAL SALINE 50 ML IV PRN (11:53)
[2019-10-30] MEDS ORDERED: NORMAL SALINE 1000 ML 1,000 ML IV PRN (11:54)
[2019-10-30] MEDS ORDERED: HYDROMORPHONE HCL INJ/PF 2 MG/ML AMPULE IV PRN (11:55)
[2019-10-30 12:14] VITALS: BP 128/98
== END 2019-10-30 15:20 | disposition home or self-care (01) ==
LOC: II 11:46 → 5TH 11:48 → II 15:20
PROVIDERS: ADMIT Emergency Medicine; ATTEND Internal Medicine
DX: D57.1 Sickle-cell disease without crisis (principal); E86.0 Dehydration; R52 Pain, unspecified
CPT/HCPCS: 96365; 96375; 96361; J1200; J1170; J1642

== ENCOUNTER 2019-11-02 10:27 | Outpatient (CLI) | payer MEDICARE, MEDICAID ==
[2019-11-02] MEDS ORDERED: NORMAL SALINE 1000 ML 1,000 ML IV PRN (10:31)
[2019-11-02] MEDS ORDERED: DIPHENHYDRAMINE HCL 50 MG/ML VIAL IV PRN (10:31)
[2019-11-02] MEDS ORDERED: HYDROMORPHONE HCL INJ/PF 2 MG/ML AMPULE IV PRN (10:32)
[2019-11-02] MEDS ORDERED: DIPHENHYDRAMINE HCL 50 MG/ML VIAL ONE (10:49)
[2019-11-02] MEDS ORDERED: HYDROMORPHONE HCL INJ/PF 2 MG/ML AMPULE ONE (10:50)
[2019-11-02 12:04] VITALS: BP 122/90
== END 2019-11-02 12:30 | disposition home or self-care (01) ==
LOC: ASU 10:27
PROVIDERS: ATTEND Internal Medicine
DX: D57.1 Sickle-cell disease without crisis (principal); E86.0 Dehydration; R52 Pain, unspecified
CPT/HCPCS: 96365; 96374; 96375; 96361; J1200; J1170; J1642

== ENCOUNTER 2019-11-03 08:54 | Outpatient (CLI) | payer MEDICARE, MEDICAID ==
[~2019-11-03 08:54] MED LIST changes: -HYDROMORPHONE HCL INJ/PF 2 MG/ML AMPULE IV PRN; -NORMAL SALINE 1000 ML 1,000 ML IV PRN; +NORMAL SALINE 1000 ML @ AS DIRECTED IV PRN
[2019-11-03] MEDS: HYDROMORPHONE HCL INJ/PF 2 MG/ML AMPULE IV PRN ×2 (09:15→09:21)
[2019-11-03 09:32] VITALS: BP 121/85
== END 2019-11-03 10:41 | disposition home or self-care (01) ==
LOC: II 08:54 → 5TH 09:00 → II 10:41
PROVIDERS: ADMIT Emergency Medicine; ATTEND Internal Medicine
DX: D57.1 Sickle-cell disease without crisis (principal); E86.0 Dehydration; R52 Pain, unspecified
CPT/HCPCS: 96365; 96375; 96361; J1200; J1170; J1642

== ENCOUNTER 2019-11-04 09:38 | Outpatient (CLI) | payer MEDICARE, MEDICAID ==
[2019-11-04 10:01] VITALS: BP 130/82
[2019-11-04] MEDS ORDERED: DIPHENHYDRAMINE HCL 25 MG in NORMAL SALINE 50 ML IV PRN (10:09)
[2019-11-04] MEDS ORDERED: NORMAL SALINE 1000 ML 1,000 ML IV PRN (10:15)
[2019-11-04] MEDS ORDERED: DIPHENHYDRAMINE HCL 50 MG/ML VIAL INJ PRN (10:15)
[2019-11-04] MEDS ORDERED: HYDROMORPHONE HCL INJ/PF 2 MG/ML AMPULE IV PRN (10:15)
== END 2019-11-04 11:24 | disposition home or self-care (01) ==
LOC: II 09:38 → 5TH 09:53 → II 11:24
PROVIDERS: ADMIT Emergency Medicine; ATTEND Internal Medicine
DX: D57.1 Sickle-cell disease without crisis (principal); E86.0 Dehydration; R52 Pain, unspecified
CPT/HCPCS: 96365; 96375; 96361; J1200; J1170; J1642

== ENCOUNTER 2019-11-05 08:27 | Outpatient (CLI) | payer MEDICARE, MEDICAID ==
[~2019-11-05 08:27] MED LIST changes: +HYDROMORPHONE HCL INJ/PF 2 MG/ML AMPULE IV PRN
[2019-11-05 08:38] VITALS: BP 130/83
== END 2019-11-05 11:35 | disposition home or self-care (01) ==
LOC: II 08:27 → 5TH 08:31 → II 11:35
PROVIDERS: ADMIT Emergency Medicine; ATTEND Internal Medicine
DX: D57.1 Sickle-cell disease without crisis (principal); E86.0 Dehydration; R52 Pain, unspecified
CPT/HCPCS: 96365; 96375; 96361; J1200; J1170; J1642

== ENCOUNTER 2019-11-06 07:42 | Outpatient (CLI) | payer MEDICARE, MEDICAID ==
[2019-11-06 08:00] VITALS: BP 133/89
== END 2019-11-06 09:19 | disposition home or self-care (01) ==
LOC: II 07:42 → 5TH 07:45 → II 09:19
PROVIDERS: ADMIT Emergency Medicine; ATTEND Internal Medicine
DX: D57.1 Sickle-cell disease without crisis (principal); E86.0 Dehydration; R52 Pain, unspecified
CPT/HCPCS: 96365; 96375; 96361; J1200; J1170; J1642

== ENCOUNTER → 2019-11-09 | Outpatient (CLI) | payer MEDICARE, MEDICAID ==
[~2019-11-09] MED LIST changes: +DIPHENHYDRAMINE HCL 50 MG/ML VIAL IV PRN; +DIPHENHYDRAMINE HCL 50 MG/ML VIAL ONE; +HYDROMORPHONE HCL INJ/PF 2 MG/ML AMPULE ONE; +NORMAL SALINE 1000 ML 1,000 ML IV PRN; -NORMAL SALINE 1000 ML @ AS DIRECTED IV PRN
[2019-11-09 15:32] VITALS: BP 116/78
== END ==
LOC: ASU 12:10
PROVIDERS: ATTEND Internal Medicine
DX: D57.1 Sickle-cell disease without crisis (principal); E86.0 Dehydration; R52 Pain, unspecified
CPT/HCPCS: 96372; J1200; J1170; J1642; 96361; 96374; 96375

== ENCOUNTER 2019-11-10 08:33 | Outpatient (CLI) | payer MEDICARE, MEDICAID ==
[2019-11-10] MEDS ORDERED: NORMAL SALINE 1000 ML @ AS DIRECTED IV PRN (08:39)
[2019-11-10] MEDS ORDERED: DIPHENHYDRAMINE HCL 25 MG in NORMAL SALINE 50 ML IV PRN ×2 (08:39→09:00)
[2019-11-10] MEDS ORDERED: HYDROMORPHONE HCL INJ/PF 2 MG/ML AMPULE IV PRN (08:40)
[2019-11-10 08:42] VITALS: BP 134/92
== END 2019-11-10 10:00 | disposition home or self-care (01) ==
LOC: II 08:33 → 5TH 08:35 → II 10:00
PROVIDERS: ATTEND Internal Medicine
DX: D57.1 Sickle-cell disease without crisis (principal); E86.0 Dehydration; R52 Pain, unspecified
CPT/HCPCS: 96365; 96375; 96361; J1200; J1170; J1642

== ENCOUNTER 2019-11-11 08:00 | Outpatient (CLI) | payer MEDICARE, MEDICAID ==
[~2019-11-11 08:00] MED LIST changes: -DIPHENHYDRAMINE HCL 50 MG/ML VIAL IV PRN; -DIPHENHYDRAMINE HCL 50 MG/ML VIAL ONE; -HYDROMORPHONE HCL INJ/PF 2 MG/ML AMPULE ONE; -NORMAL SALINE 1000 ML 1,000 ML IV PRN; +NORMAL SALINE 1000 ML @ AS DIRECTED IV PRN
[2019-11-11 08:25] VITALS: BP 136/87
[2019-11-12] MEDS ORDERED: NORMAL SALINE 1000 ML @ AS DIRECTED IV PRN (05:00)
== END 2019-11-11 09:30 | disposition home or self-care (01) ==
LOC: II 08:00 → 5TH 08:03 → II 09:30
PROVIDERS: ATTEND Internal Medicine
DX: D57.1 Sickle-cell disease without crisis (principal); E86.0 Dehydration; R52 Pain, unspecified
CPT/HCPCS: 96365; 96375; 96361; J1200; J1170; J1642

== ENCOUNTER 2019-11-12 08:13 | Outpatient (CLI) | payer MEDICARE, MEDICAID ==
[~2019-11-12 08:13] MED LIST changes: +NORMAL SALINE 1000 ML 1,000 ML IV PRN; -NORMAL SALINE 1000 ML @ AS DIRECTED IV PRN
[2019-11-12 08:24] VITALS: BP 150/89
== END 2019-11-12 09:53 | disposition home or self-care (01) ==
LOC: 5TH 08:13 → II 08:13
PROVIDERS: ATTEND Internal Medicine
DX: D57.1 Sickle-cell disease without crisis (principal); E86.0 Dehydration; R52 Pain, unspecified
CPT/HCPCS: 96365; 96375; 96361; J1200; J1170; J1642

== ENCOUNTER 2019-11-13 08:18 | Outpatient (CLI) | payer MEDICARE, MEDICAID ==
[~2019-11-13 08:18] MED LIST changes: -NORMAL SALINE 1000 ML 1,000 ML IV PRN; +NORMAL SALINE 1000 ML @ AS DIRECTED IV PRN
[2019-11-13 08:39] VITALS: BP 135/86
== END 2019-11-13 10:11 | disposition home or self-care (01) ==
LOC: II 08:18 → 5TH 08:22 → II 10:11
PROVIDERS: ATTEND Internal Medicine
DX: D57.1 Sickle-cell disease without crisis (principal); E86.0 Dehydration; R52 Pain, unspecified
CPT/HCPCS: 96365; 96375; 96361; J1200; J1170; J1642

== ENCOUNTER → 2019-11-16 | Outpatient (CLI) | payer MEDICARE, MEDICAID ==
[~2019-11-16] MED LIST changes: -DIPHENHYDRAMINE HCL 25 MG in NORMAL SALINE 50 ML IV PRN; +DIPHENHYDRAMINE HCL 50 MG/ML VIAL ONE; -HYDROMORPHONE HCL INJ/PF 2 MG/ML AMPULE IV PRN; +HYDROMORPHONE HCL INJ/PF 2 MG/ML AMPULE ONE; +NORMAL SALINE 1000 ML 1,000 ML IV PRN; -NORMAL SALINE 1000 ML @ AS DIRECTED IV PRN
[2019-11-16 12:33] VITALS: BP 134/68
== END ==
LOC: ASU 10:04
PROVIDERS: ATTEND Internal Medicine
DX: D57.1 Sickle-cell disease without crisis (principal); E86.0 Dehydration; R52 Pain, unspecified
CPT/HCPCS: 96374; 96375; 96361; J1200; J1170; J1642; 96365

== ENCOUNTER 2019-11-17 08:20 | Outpatient (CLI) | payer MEDICARE, MEDICAID ==
[~2019-11-17 08:20] MED LIST changes: +DIPHENHYDRAMINE HCL 25 MG in NORMAL SALINE 50 ML IV PRN; -DIPHENHYDRAMINE HCL 50 MG/ML VIAL ONE; +HYDROMORPHONE HCL INJ/PF 2 MG/ML AMPULE IV PRN; -HYDROMORPHONE HCL INJ/PF 2 MG/ML AMPULE ONE
[2019-11-17 09:49] VITALS: BP 133/96
== END 2019-11-17 10:30 | disposition home or self-care (01) ==
LOC: II 08:20 → 5TH 08:22 → II 10:30
PROVIDERS: ATTEND Internal Medicine
DX: D57.1 Sickle-cell disease without crisis (principal); E86.0 Dehydration; R52 Pain, unspecified
CPT/HCPCS: 96365; 96375; 96361; J1200; J1170; J1642

== ENCOUNTER 2019-11-18 08:34 | Outpatient (CLI) | payer MEDICARE, MEDICAID ==
[2019-11-18 08:44] VITALS: BP 131/88
== END 2019-11-18 10:10 | disposition home or self-care (01) ==
LOC: II 08:34 → 5TH 08:36 → II 10:10
PROVIDERS: ATTEND Internal Medicine
DX: D57.1 Sickle-cell disease without crisis (principal); E86.0 Dehydration; R52 Pain, unspecified
CPT/HCPCS: J1200; J1170; J1642; 96361; 96365; 96375

== ENCOUNTER 2019-11-19 08:23 | Outpatient (CLI) | payer MEDICARE, MEDICAID ==
[2019-11-19 08:48] VITALS: BP 126/92
== END 2019-11-19 10:00 | disposition home or self-care (01) ==
LOC: II 08:23 → 5TH 08:48 → II 10:00
PROVIDERS: ATTEND Internal Medicine
DX: D57.1 Sickle-cell disease without crisis (principal); E86.0 Dehydration; R52 Pain, unspecified
CPT/HCPCS: 96365; 96375; 96361; J1200; J1170; J1642

== ENCOUNTER 2019-11-23 11:59 | Outpatient (CLI) | payer MEDICARE, MEDICAID ==
[2019-11-23 12:13] VITALS: BP 124/75
[2019-11-23] MEDS ORDERED: DIPHENHYDRAMINE HCL 50 MG/ML VIAL IV PRN (12:37)
[2019-11-23] MEDS ORDERED: HYDROMORPHONE HCL INJ/PF 2 MG/ML AMPULE IV PRN ×2 (12:38→12:45)
[2019-11-23] MEDS ORDERED: NORMAL SALINE 1000 ML 1,000 ML IV PRN (12:39)
== END 2019-11-23 14:56 | disposition home or self-care (01) ==
LOC: II 11:59 → 2N 12:00 → II 14:56
PROVIDERS: ATTEND Internal Medicine
DX: D57.1 Sickle-cell disease without crisis (principal); E86.0 Dehydration; R52 Pain, unspecified
CPT/HCPCS: 96374; 96375; 96361; J1200; J1170; J7030; J1642

== ENCOUNTER 2019-11-24 11:44 | Outpatient (CLI) | payer MEDICARE, MEDICAID ==
[2019-11-24] MEDS ORDERED: DIPHENHYDRAMINE HCL 25 MG in NORMAL SALINE 50 ML IV PRN (11:59)
[2019-11-24] MEDS ORDERED: HYDROMORPHONE HCL INJ/PF 2 MG/ML AMPULE IV PRN (12:00)
[2019-11-24] MEDS ORDERED: NORMAL SALINE 1000 ML 1,000 ML IV PRN (12:00)
[2019-11-24 12:48] VITALS: BP 119/79
== END 2019-11-24 13:42 | disposition home or self-care (01) ==
LOC: II 11:44 → 5TH 11:47 → II 13:42
PROVIDERS: ATTEND Internal Medicine
DX: E86.0 Dehydration (principal); R52 Pain, unspecified; D57.1 Sickle-cell disease without crisis
CPT/HCPCS: 96365; 96375; 96361; J1200; J1170; J1642

== ENCOUNTER 2019-11-25 10:02 | Outpatient (CLI) | payer MEDICARE, MEDICAID ==
[2019-11-25 10:20] VITALS: BP 122/80
== END 2019-11-25 11:30 | disposition home or self-care (01) ==
LOC: II 10:02 → 5TH 10:03 → II 11:30
PROVIDERS: ATTEND Internal Medicine
DX: D57.1 Sickle-cell disease without crisis (principal); E86.0 Dehydration; R52 Pain, unspecified
CPT/HCPCS: 96365; 96375; 96361; J1200; J1170; J1642

== ENCOUNTER 2019-11-26 08:20 | Outpatient (CLI) | payer MEDICARE, MEDICAID ==
[2019-11-26 08:40] VITALS: BP 130/96
== END 2019-11-26 10:02 | disposition home or self-care (01) ==
LOC: II 08:20 → 5TH 08:25 → II 10:02
PROVIDERS: ATTEND Internal Medicine
DX: D57.1 Sickle-cell disease without crisis (principal); R52 Pain, unspecified; E86.0 Dehydration
CPT/HCPCS: 96365; 96375; 96361; J1200; J1170; J1642

== ENCOUNTER 2019-11-27 08:38 | Outpatient (CLI) | payer MEDICARE, MEDICAID ==
[2019-11-27] MEDS ORDERED: DIPHENHYDRAMINE HCL 25 MG in NORMAL SALINE 50 ML IV PRN (08:40)
[2019-11-27] MEDS ORDERED: NORMAL SALINE 1000 ML 1,000 ML IV PRN (08:41)
[2019-11-27] MEDS ORDERED: HYDROMORPHONE HCL INJ/PF 2 MG/ML AMPULE IV PRN (08:43)
[2019-11-27 08:49] VITALS: BP 119/86
== END 2019-11-27 10:15 | disposition home or self-care (01) ==
LOC: II 08:38 → 5TH 08:39 → II 10:15
PROVIDERS: ATTEND Internal Medicine
DX: D57.1 Sickle-cell disease without crisis (principal); E86.0 Dehydration; R52 Pain, unspecified
CPT/HCPCS: 96365; 96375; 96361; J1200; J1170; J1642

== ENCOUNTER 2019-11-29 03:58 | Emergency (ER) | payer MEDICARE, MEDICAID ==
[2019-11-29] MEDS ORDERED: NORMAL SALINE 1000 ML 1,000 ML IV ONE (05:21)
[2019-11-29] MEDS ORDERED: DIPHENHYDRAMINE HCL 50 MG/ML VIAL IV ONE ×2 (05:21→09:18)
[2019-11-29] MEDS ORDERED: HYDROMORPHONE HCL INJ/PF 2 MG/ML AMPULE IV ONE ×2 (05:21→09:18)
--- NOTE | 2019-11-29 05:35 | ER Document Report ---
Entered by CORKY KIM SCRIBE 11/29/19 0521 Acting as scribe for:BRYON RODRIGUEZ IV, MD ED General Pain - General Mode of Arrival: Ambulatory Information source: Patient TRAVEL OUTSIDE OF THE [place] IN LAST 30 DAYS: No <BRYON RODRIGUEZ IV - Last Filed: 11/29/19 06:30> <AMAROJEANETTE - Last Filed: 11/29/19 10:54> - General Chief Complaint: Sickle Cell Crisis Stated Complaint: WEAKNESS/SICKLE CELL PAIN Time Seen by Provider: 11/29/19 05:15 Primary Care Provider: BETH MEDELLIN MD [Primary Care Provider] - Follow up as needed Notes: This 38 year old male patient with a history of sickle cell disease presents to the ED today with complaints of generalized body pain that is consistent with prior sickle cell crises. Patient states that he usually receives Dilaudid and Benadryl for pain management. Patient is followed by Dr. Medellin. (BRYON RODRIGUEZ IV) - Related Data Allergies/Adverse Reactions: famotidine [From Pepcid] Allergy (Severe, Verified 11/02/19 11:45) Anaphylaxis ketorolac tromethamine [From Toradol] Allergy (Severe, Verified 11/02/19 11:45) levofloxacin [From Levaquin] Allergy (Severe, Verified 11/02/19 11:45) meperidine HCl [From Demerol] Allergy (Severe, Verified 11/02/19 11:45) morphine [Morphine] Allergy (Severe, Verified 11/02/19 11:45) tramadol HCl [From Ultram] Allergy (Severe, Verified 11/02/19 11:45) amoxicillin [Amoxicillin] Allergy (Verified 11/02/19 11:45) fentanyl [Fentanyl] Allergy (Verified 11/02/19 11:45) latex [Latex] Allergy (Verified 11/02/19 11:45) ondansetron HCl [From Zofran] Allergy (Verified 11/02/19 11:45) Pork/Porcine Containing Products Allergy (Verified 11/02/19 11:45) promethazine Allergy (Verified 11/02/19 11:45) Past Medical History - General Information source: Patient, [facility] Records - Social History Smoking Status: Never Smoker Cigarette use (# per day): No Chew tobacco use (# tins/day): No Smoking Education Provided: No Family History: Reviewed & Not Pertinent, Hypertension, Other - Sickle cell ane idania Patient has suicidal ideation: No Patient has homicidal ideation: No Musculoskeletal Medical History: Reports Hx Musculoskeletal Deformity - right hip avascular necrosis Psychiatric Medical History: Reports: Hx Depression Past Surgical History: Reports: Hx Appendectomy, Hx Vascular Surgery - L port placement - Immunizations Immunizations up to date: Yes Hx Diphtheria, Pertussis, Tetanus Vaccination: No Hx Pneumococcal Vaccination: 02/20/11 <BRYON RODRIGUEZ IV - Last Filed: 11/29/19 06:30> Review of Systems - Review of Systems Constitutional: No symptoms reported EENT: No symptoms reported Cardiovascular: No symptoms reported Respiratory: No symptoms reported Gastrointestinal: No symptoms reported Genitourinary: No symptoms reported Male Genitourinary: No symptoms reported Musculoskeletal: See HPI, Muscle pain Skin: No symptoms reported Hematologic/Lymphatic: No symptoms reported Neurological/Psychological: No symptoms reported -: Yes All other systems reviewed and negative <BRYON RODRIGUEZ IV - Last Filed: 11/29/19 06:30> Physical Exam - General General appearance: Alert - Distracted by technology In distress: None - HEENT Head: Normocephalic, Atraumatic Eyes: Normal Pupils: PERRL - Respiratory Respiratory status: No respiratory distress Chest status: Nontender Breath sounds: Normal Chest palpation: Normal - Cardiovascular Rhythm: Regular Heart sounds: Normal auscultation Murmur: No Friction rub: No Gallop: None auscultated - Abdominal Inspection: Normal Distension: No distension Bowel sounds: Normal Tenderness: Nontender - Abdomen soft Organomegaly: No organomegaly - Back Back: Normal, Nontender - Extremities General upper extremity: Normal inspection General lower extremity: Normal inspection - Neurological Neuro grossly intact: Yes Orientation: AAOx4 [place] Coma Scale Eye Opening: Spontaneous [place] Coma Scale Verbal: Oriented [place] Coma Scale Motor: Obeys Commands [place]anni Coma Scale Total: 15 - Psychological Associated symptoms: Normal affect, Normal mood - Skin Skin Temperature: Warm Skin Moisture: Dry Skin Color: Normal <BRYON RODRIGUEZ IV - Last Filed: 11/29/19 06:30> - Vital signs Vitals: Temp Pulse Resp BP Pulse Ox 98.3 F 73 20 157/97 H 95 11/29/19 04:04 11/29/19 04:04 11/29/19 04:04 11/29/19 04:04 11/29/19 04:04 Course - Transfer of Care Care transferred to following provider: Dr. Amaro at 0625 <BRYON RODRIGUEZ IV - Last Filed: 11/29/19 06:30> - Laboratory Result Diagrams: 11/29/19 06:49 11/29/19 06:49 <JEANETTE AMARO - Last Filed: 11/29/19 10:54> - Re-evaluation Re-evalutation: 11/29/19 10:52 Patient was seen initially by Dr. Bryon Rodriguez and was felt to have his usual sickle cell crisis. His reticulocyte count is elevated 8%. His white count is not significantly elevated and his hemoglobin is at usual baseline. Chemistry profile unremarkable. Patient's pain is been controlled with some IV doses of Dilaudid and Benadryl. Patient is more comfortable when requesting discharge home to continue his usual outpatient medications and to follow-up with Dr. Medellin in hematology clinic outpatient. Findings, clinical impression and plan of treatment have been discussed with patient/family. Understanding of current findings and recommendations has been acknowledged by them and there is agreement regarding disposition and follow-up. 11/29/19 10:53 (JEANETTE AMARO) - Vital Signs Vital signs: Temp Pulse Resp BP Pulse Ox 98.3 F 73 20 157/97 H 95 11/29/19 04:04 11/29/19 04:04 11/29/19 04:04 11/29/19 04:04 11/29/19 04:04 - Laboratory Laboratory results interpreted by me: 11/29/19 11/29/19 06:49 06:49 RBC 2.85 L Hgb 9.6 L Hct 27.4 L MCH 33.6 H RDW 23.1 H Reticulocyte # 0.253 H Retic Count (auto) 8.87 H Calcium 8.3 L Total Bilirubin 1.5 H Discharge <BRYON RODRIGUEZ IV - Last Filed: 11/29/19 06:30> <JEANETTE AMARO - Last Filed: 11/29/19 10:54> - Discharge Clinical Impression: Sickle cell crisis Condition: Stable Disposition: HOME, SELF-CARE Additional Instructions: Continue your usual medications. Return here as needed for new or worsening symptoms: Pain that is worsening or unimproved Uncontrolled vomiting High fever or shaking chills Overall worsening Follow-up in hematology clinic this week. Referrals: BETH MEDELLIN MD [Primary Care Provider] - Follow up as needed I personally performed the services described in the documentation, reviewed and edited the documentation which was dictated to the scribe in my presence, and it accurately records my words and actions.
[2019-11-29 08:09] LABS: ALBUMIN 4.2 g/dL (3.5-5.0); ALKALINE PHOSPHATASE 93 U/L (38-126); ANION GAP 7 (5-19); ASPARTATE AMINO TRANSFERASE 43 U/L (17-59); BILIRUBIN,TOTAL 1.5 mg/dL (0.2-1.3); BLOOD UREA NITROGEN 12 mg/dL (7-20); CALCIUM 8.3 mg/dL (8.4-10.2); CARBON DIOXIDE 24 mmol/L (22-30); CHLORIDE 107 mmol/L (98-107); GLUCOSE 107 mg/dL (75-110); POTASSIUM 4.1 mmol/L (3.6-5.0)
[2019-11-29 08:17] LABS: ABSOLUTE RETICS # 0.253 10^6/uL (0.028-0.122); HEMATOCRIT 27.4 % (37.9-51.0); HEMOGLOBIN 9.6 g/dL (13.5-17.0); MEAN CORPUSCULAR HEMOGLOBIN 33.6 pg (27.0-33.4); MEAN CORPUSCULAR VOLUME 96 fl (80-97); PLATELET COUNT 434 10^3/uL (150-450); RED BLOOD COUNT 2.85 10^6/uL (4.35-5.55); RED CELL DISTRIBUTION WIDTH 23.1 % (11.5-14.0); RETICULOCYTE COUNT (AUTO) 8.87 % (0.66-2.85); WHITE BLOOD COUNT 7.6 10^3/uL (4.0-10.5)
[2019-11-29 08:42] LABS: ABSOLUTE MONOCYTES # (MANUAL) 0.6 10^3/uL (0.1-1.4); BASOPHILS % (MANUAL) 0 % (0-2); EOSINOPHILS % (MANUAL) 1 % (0-6); LYMPHOCYTES % (MANUAL) 26 % (13-45); MONOCYTES % (MANUAL) 8 % (3-13); NUCLEATED RED BLOOD CELLS 1 /100 WBC (0); SEGMENTED NEUTROPHILS % (MAN) 65 % (42-78); TOTAL CELLS COUNTED 100
[2019-11-29 08:48] LABS: ANISOCYTOSIS 3+; OVALOCYTES 2+; PLATELET COMMENT ADEQUATE; POIKILOCYTOSIS 2+; SICKLE RED CELLS SLIGHT; TARGET CELLS SLIGHT
[2019-11-29 12:06] VITALS: BP 142/96
== END 2019-11-29 11:49 | disposition home or self-care (01) ==
LOC: ER 03:58
DX: D57.00 Hb-SS disease with crisis, unspecified (principal); R53.1 Weakness; M79.10 Myalgia, unspecified site; Z88.8 Allergy status to other drugs, medicaments and biological substances; Z88.0 Allergy status to penicillin
CPT/HCPCS: 36591; 96376; 99284; 96361; 96374; 96375; 36415; 85025; 85045; 80053; J1200; J1170; J7030; J1642

== ENCOUNTER → 2019-11-30 | Outpatient (CLI) | payer MEDICARE, MEDICAID ==
--- NOTE | 2019-11-30 16:37 | RADIOLOGY REPORT (SQ) ---
EXAM DESCRIPTION: CHEST 2 VIEWS IMAGES COMPLETED DATE/TIME: 11/30/2019 3:24 pm REASON FOR STUDY: SHORTNESS OF BREATH COMPARISON: 10/14/2019 EXAM PARAMETERS: NUMBER OF VIEWS: two views TECHNIQUE: Digital Frontal and Lateral radiographic views of the chest acquired. RADIATION DOSE: NA LIMITATIONS: none FINDINGS: LUNGS AND PLEURA: No significant interval change in the bibasilar mildly prominent inters titial markings at the lung bases. No pneumothorax or pleural effusion. MEDIASTINUM AND HILAR STRUCTURES: No masses or contour abnormalities. HEART AND VASCULAR STRUCTURES: Cardiomegaly, stable finding. Pulmonary vascular redistribution (cep halization) unchanged finding. BONES: No acute findings. HARDWARE: Left Ncnbud-P-Lrbe catheter, stable finding. OTHER: No other significant finding. IMPRESSION: 1. No significant interval changes since the prior examination dated 10/14/2019. Chroni c changes as above. No acute findings. TECHNICAL DOCUMENTATION: JOB ID: [id number] 2010 [employer]- All Rights Reserved Reading location - IP/workstation name: [email or web address]
== END ==
LOC: RAD 13:54
PROVIDERS: ATTEND Physician Assistant Medical
DX: R07.9 Chest pain, unspecified (principal); R06.02 Shortness of breath
CPT/HCPCS: 71046

== ENCOUNTER 2019-12-01 07:57 | Outpatient (CLI) | payer MEDICARE, MEDICAID ==
[2019-12-01] MEDS ORDERED: DIPHENHYDRAMINE HCL 25 MG in NORMAL SALINE 50 ML IV PRN (08:01)
[2019-12-01] MEDS: NORMAL SALINE 1000 ML 1,000 ML IV PRN ×2 (08:11→09:33)
[2019-12-01 08:21] VITALS: BP 132/98
[2019-12-01] MEDS: HYDROMORPHONE HCL INJ/PF 2 MG/ML AMPULE IV PRN ×2 (08:44→10:12)
== END 2019-12-01 11:00 | disposition home or self-care (01) ==
LOC: II 07:57 → 5TH 07:58 → II 11:00
PROVIDERS: ATTEND Internal Medicine
DX: D57.1 Sickle-cell disease without crisis (principal); E86.0 Dehydration; R52 Pain, unspecified
CPT/HCPCS: 96365; 96375; 96361; J1200; J1170; J1642

== ENCOUNTER 2019-12-02 21:33 | Inpatient (IN) | payer MEDICARE, MEDICAID ==
[2019-12-02] MEDS ORDERED: RINGERS SOLUTION,LACTATED 1,000 ML IV ONE (22:08)
--- NOTE | 2019-12-02 22:11 | ER Document Report ---
ED Medical Screen (RME) - General Chief Complaint: Sickle Cell Crisis Stated Complaint: PAIN ALL OVER Time Seen by Provider: 12/02/19 22:07 Primary Care Provider: BETH STAPLETON MD [Primary Care Provider] - Follow up as needed Mode of Arrival: Ambulatory Information source: Patient Notes: HPI; 38-year-old male past medical history significant for sickle cell presents to the emergency room with a sickle cell flare for the past 72 hours. States is been taking methadone without relief. Also complains of left flank pain and chest pain that radiates to his back. States it hurts to take a deep breath he said the symptoms started yesterday. Denies any recent travel. No chest injury. PE: Alert and oriented x3. Mild distress noted. Lungs: Clear to auscultation without rales, rhonchi, wheezes. Heart: Regular rate rhythm without murmurs, rubs, gallops. Positive for left CVA tenderness. I have greeted and performed a rapid initial assessment of this patient. A comprehensive ED assessment and evaluation of the patient, analysis of test results and completion of the medical decision making process will be conducted by additional ED providers. I have specifically instructed the patient or family members with the patient to immediately return to any nursing staff should anything change in the patient's condition or with their chief complaint. TRAVEL OUTSIDE OF THE [place] IN LAST 30 DAYS: No - Related Data Allergies/Adverse Reactions: famotidine [From Pepcid] Allergy (Severe, Verified 11/02/19 11:45) Anaphylaxis ketorolac tromethamine [From Toradol] Allergy (Severe, Verified 11/02/19 11:45) levofloxacin [From Levaquin] Allergy (Severe, Verified 11/02/19 11:45) meperidine HCl [From Demerol] Allergy (Severe, Verified 11/02/19 11:45) morphine [Morphine] Allergy (Severe, Verified 11/02/19 11:45) tramadol HCl [From Ultram] Allergy (Severe, Verified 11/02/19 11:45) amoxicillin [Amoxicillin] Allergy (Verified 11/02/19 11:45) fentanyl [Fentanyl] Allergy (Verified 11/02/19 11:45) latex [Latex] Allergy (Verified 11/02/19 11:45) ondansetron HCl [From Zofran] Allergy (Verified 11/02/19 11:45) Pork/Porcine Containing Products Allergy (Verified 11/02/19 11:45) promethazine Allergy (Verified 11/02/19 11:45) Home Medications: methadone, folic acid, hydroxea Past Medical History - Past Medical History Cardiac Medical History: Denies: Hx Atrial Fibrillation, Hx Congestive Heart Failure, Hx Coronary Artery Disease, Hx DVT, Hx Heart Attack, Hx Hypercholesterolemia, Hx Hypertension, Hx Peripheral Vascular Disease, Hx Pulmonary Embolism Pulmonary Medical History: Denies: Hx Asthma, Hx Bronchitis, Hx COPD, Hx Pneumonia, Hx Respiratory Failure, Hx Tuberculosis Neurological Medical History: Denies: Hx Cerebrovascular Accident, Hx Migraine, Hx Seizures, Hx Parkinson's Disease Endocrine Medical History: Denies: Hx Diabetes Mellitus Type 1, Hx Diabetes Mellitus Type 2, Hx Hyperthyroidism, Hx Hypothyroidism Renal/ Medical History: Denies: Hx Peritoneal Dialysis GI Medical History: Denies: Hx Cirrhosis, Hx Crohn's Disease, Hx Vish roesophageal Reflux Disease, Hx Hepatitis, Hx Ulcerative Colitis Musculoskeltal Medical History: Denies Hx Arthritis, Denies Hx Gout, Reports Hx Musculoskeletal Deformity - right hip avascular necrosis Skin Medical History: Denies Hx Eczema, Denies Hx Psoriasis Psychiatric Medical History: Reports: Hx Depression Infectious Medical History: Denies: Hx Hepatitis Past Surgical History: Reports: Hx Appendectomy, Hx Vascular Surgery - L port placement, Other - Port placement - Immunizations Immunizations up to date: Yes Hx Diphtheria, Pertussis, Tetanus Vaccination: No Physical Exam - Vital signs Vitals: Temp Pulse Resp BP Pulse Ox 98.6 F 78 20 141/87 H 93 12/02/19 21:46 12/02/19 21:46 12/02/19 21:46 12/02/19 21:46 12/02/19 21:46 Course - Vital Signs Vital signs: Temp Pulse Resp BP Pulse Ox 98.6 F 78 20 141/87 H 93 12/02/19 21:46 12/02/19 21:46 12/02/19 21:46 12/02/19 21:46 12/02/19 21:46 Doctor's Discharge - Discharge Referrals: BETH STAPLETON MD [Primary Care Provider] - Follow up as needed
--- NOTE | 2019-12-02 22:45 | RADIOLOGY REPORT (SQ) ---
EXAM DESCRIPTION: XR CHEST 2 VIEWS COMPLETED DATE/TME: 12/02/2019 22:09 CLINICAL HISTORY: 38 years, Male, chest pain COMPARISON: Prior study from 11/30/2019 NUMBER OF VIEWS: 2 TECHNIQUE: Frontal and lateral radiographs were acquired LIMITATIONS: None. FINDINGS: Left IJ approach central venous port catheter tip is located within the SVC. Cardiac and mediastinal contours are stable. Coarse irregular reticular opacity is again noted about both lung bases, fairly similar to the previous examinations, and likely indicating areas of fibrosis. Lungs are otherwise clear. No pleural effusion or pneumothorax. IMPRESSION: Stable chronic changes; no acute disease. copyright 2010 [employer]- All Rights Reserved
--- NOTE | 2019-12-02 23:10 | RADIOLOGY REPORT (SQ) ---
EXAM DESCRIPTION: CT ABDOMEN PELVIS WITHOUT IV CONTRAST COMPLETED DATE/TME: 12/02/2019 22:08 CLINICAL HISTORY: 38 years, Male, LEFT flank pain COMPARISON: Prior CT chest dated 12/31/2018.; CT abdomen/pelvis dated 07/13/2018 TECHNIQUE: Noncontrast CT of the abdomen/pelvis was acquired. Coronal and sagittal reformations were created. Images stored on PACS. All CT scanners at this facility use dose modulation, iterative reconstruction, and/or weight based dosing when appropriate to reduce radiation dose to as low as reasonably achievable (ALARA). [facility]: Dose Right [facility]: CareDose [facility]: Dose Right [facility]: Teradose 4D [facility]: [employer] LIMITATIONS: None. FINDINGS: Limited evaluation of the lower chest reveals coarse irregular reticular opacity about both lower lobes as well as the right middle lobe and lingula with superimposed areas of bandlike consolidation. Overall, these findings appear fairly similar to the previous examination dated 12/31/2018, and most likely indicate an underlying chronic fibrosis. Trace bilateral pleural effusions are evident. Liver, pancreas, and both adrenal glands appear normal. Gallstones are noted about the gallbladder neck. The spleen is atrophic and diffusely calcified. Fluid density lesions are noted about the left kidney, the largest of which is located about the upper pole. These are incompletely assessed on this noncontrast study though statistically correspond to simple renal cysts. No significant hydronephrosis or hydroureter. No nephroureteral calculi are appreciated. The urinary bladder is well distended and shows questionable intermediate density about the posterior aspect of the urinary bladder, possibly artifactual. Specifically, this is best visualized on image 89 of series 3. Small and large bowel are normal in caliber. No evidence of bowel obstruction. The appendix is not visualized; however, no pericecal inflammatory changes are appreciated. There is a small fat-containing umbilical hernia. Vascular structures are normal in their noncontrast appearance. No suspicious lymphadenopathy or drainable fluid collections are appreciated. Bone windows show osseous changes related to sickle cell disease. No destructive osseous lesions are noted. However, there is bilateral femoral head AVN, right more pronounced than left. IMPRESSION: No acute abnormality within the abdomen or pelvis. Questionable intermediate density about the dependent aspect of the urinary bladder is most likely artifactual rather than related to luminal debris. Cholelithiasis. 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 TECHNICAL DOCUMENTATION: Quality ID # 436: Final reports with documentation of one or more dose reduction techniques (e.g., Automated exposure control, adjustment of the mA and/or kV according to patient size, use of iterative reconstruction technique) copyright 2011 [employer]- All Rights Reserved
[2019-12-03] MEDS ORDERED: HYDROMORPHONE HCL INJ/PF 2 MG/ML AMPULE IV ONE ×2 (02:54→06:15)
[2019-12-03] MEDS ORDERED: DIPHENHYDRAMINE HCL 50 MG/ML VIAL IV ONE (02:55)
--- NOTE | 2019-12-03 04:19 | ER Document Report ---
ED General - General Chief Complaint: Sickle Cell Crisis Stated Complaint: PAIN ALL OVER Time Seen by Provider: 12/02/19 22:07 Primary Care Provider: BETH STAPLETON MD [Primary Care Provider] - Follow up as needed Mode of Arrival: Ambulatory TRAVEL OUTSIDE OF THE [place] IN LAST 30 DAYS: No - HPI Notes: 38-year-old male history of sickle cell SS disease presents with pain in chest, lower back, and hips consistent with usual sickle cell crisis. Patient says pain in chest is pain in his lower anterior ribs that hurts when he breathes and that he is frequently had this same kind of pain with prior pain crises. Patient had acute chest syndrome once as a teenager, but none of his other episodes of chest pain have been associated with it. Patient has been taking hydroxyurea and folic acid and is on methadone and oxycodone for pain control which have not relieved his symptoms. Patient denies any fever, cough, exertional chest pain, DVT/PE history, cardiac history, weakness or numbness, change in gait, anticoagulation, urinary retention, bowel incontinence, dysuria, frequency, urgency - Related Data Allergies/Adverse Reactions: famotidine [From Pepcid] Allergy (Severe, Verified 11/02/19 11:45) Anaphylaxis ketorolac tromethamine [From Toradol] Allergy (Severe, Verified 11/02/19 11:45) levofloxacin [From Levaquin] Allergy (Severe, Verified 11/02/19 11:45) meperidine HCl [From Demerol] Allergy (Severe, Verified 11/02/19 11:45) morphine [Morphine] Allergy (Severe, Verified 11/02/19 11:45) tramadol HCl [From Ultram] Allergy (Severe, Verified 11/02/19 11:45) amoxicillin [Amoxicillin] Allergy (Verified 11/02/19 11:45) fentanyl [Fentanyl] Allergy (Verified 11/02/19 11:45) latex [Latex] Allergy (Verified 11/02/19 11:45) ondansetron HCl [From Zofran] Allergy (Verified 11/02/19 11:45) Pork/Porcine Containing Products Allergy (Verified 11/02/19 11:45) promethazine Allergy (Verified 11/02/19 11:45) Home Medications: methadone, folic acid, hydroxea Past Medical History - General Information source: Patient, [facility] Records - Social History Smoking Status: Never Smoker Family History: Reviewed & Not Pertinent, Hypertension, Other - Sickle cell anemia Patient has homicidal ideation: No - Past Medical History Cardiac Medical History: Denies: Hx Atrial Fibrillation, Hx Congestive Heart Failure, Hx Coronary Artery Disease, Hx DVT, Hx Heart Attack, Hx Hypercholesterolemia, Hx Hypertension, Hx Peripheral Vascular Disease, Hx Pulmonary Embolism Pulmonary Medical History: Denies: Hx Asthma, Hx Bronchitis, Hx COPD, Hx Pneumonia, Hx Respiratory Failure, Hx Tuberculosis Neurological Medical History: Denies: Hx Cerebrovascular Accident, Hx Migraine, Hx Seizures, Hx Parkinson's Disease Endocrine Medical History: Denies: Hx Diabetes Mellitus Type 1, Hx Diabetes Mellitus Type 2, Hx Hyperthyroidism, Hx Hypothyroidism Renal/ Medical History: Denies: Hx Peritoneal Dialysis GI Medical History: Denies: Hx Cirrhosis, Hx Crohn's Disease, Hx Gastroesophageal Reflux Disease, Hx Hepatitis, Hx Ulcerative Colitis Musculoskeletal Medical History: Denies Hx Arthritis, Denies Hx Gout, Reports Hx Musculoskeletal Deformity - right hip avascular necrosis Skin Medical History: Denies Hx Eczema, Denies Hx Psoriasis Psychiatric Medical History: Reports: Hx Depression Infectious Medical History: Denies: Hx Hepatitis Past Surgical History: Reports: Hx Appendectomy, Hx Vascular Surgery - L port placement, Other - Port placement - Immunizations Immunizations up to date: Yes Hx Diphtheria, Pertussis, Tetanus Vaccination: No Hx Pneumococcal Vaccination: 02/20/11 Review of Systems - Review of Systems Notes: REVIEW OF SYSTEMS: CONSTITUTIONAL : Denies fever, chills, or sweats. EENT: Denies recent cold/sinus symptoms, denies throat pain CARDIOVASCULAR: + chest pain,-ALFRED RESPIRATORY: Denies cough, denies shortness of breath. GASTROINTESTINAL: Denies abdominal pain, nausea/vomiting. GENITOURINARY: Denies difficulty urinating, painful urination. MUSCULOSKELETAL: Denies neck pain, back pain. SKIN: Denies rash or skin lesions. HEMATOLOGIC : Denies easy bruising or bleeding. LYMPHATIC: Denies swollen, enlarged glands. NEUROLOGICAL: Denies headache, denies change in gait. PSYCHIATRIC: Denies anxiety or stress or depression. Physical Exam - Vital signs Vitals: Temp Pulse Resp BP Pulse Ox 98.6 F 78 20 141/87 H 93 12/02/19 21:46 12/02/19 21:46 12/02/19 21:46 12/02/19 21:46 12/02/19 21:46 - Notes Notes: PHYSICAL EXAMINATION: GENERAL: Well-nourished uncomfortable appearing young adult male lying in stretcher in no acute distress HEAD: Atraumatic, normocephalic. EYES: Pupils equal round and appropriate constriction, sclera anicteric, conjunctiva are normal. ENT: nares patent, moist mucous membranes. NECK: Normal range of motion, supple without lymphadenopathy LUNGS: Breath sounds clear to auscultation bilaterally and equal. No wheezes rales or rhonchi. Normal respiratory rate and effort HEART: Regular rate and rhythm without murmurs ABDOMEN: Soft, nontender, no guarding, no masses, no CVAT EXTREMITIES: Normal range of motion, no pitting or edema. No cyanosis. NEUROLOGICAL: Awake, alert, conversing appropriately, moves all extremities spontaneously. PSYCH: Normal mood, normal affect. SKIN: Warm, Dry, normal turgor, no rashes or lesions noted. Course - Re-evaluation Re-evalutation: 12/03/19 04:23 Patient with presentation consistent with usual sickle cell pain crisis. Less likely acute chest syndrome given patient has had similar symptoms with his prior pain crises and no infiltrate on chest x-ray. Given history of sickle cell will rule out ACS and PE but low suspicion. Will give pain medication, hydration, and reassess. 12/03/19 06:24 Patient still having significant pain. Dimer positive but discussed pt's presentation with patient's mounter automatic Dr. Stapleton and he does not think that patient needs to have PE ruled out at this time, but he is still concerned for acute chest and would like a CT chest without contrast performed. Will admit patient to hospitalist and mounter automatic will see patient in the morning. 12/03/19 06:[address] Doran who will turn him over to the day attending, will put patient in for medicine bed. We will put in for 1 prn dose of Dilaudid so pain is covered until hospitalist can evaluate him. - Vital Signs Vital signs: Temp Pulse Resp BP Pulse Ox 98.4 F 69 12 149/96 H 100 12/03/19 03:41 12/03/19 03:41 12/03/19 05:01 12/03/19 05:01 12/03/19 05:01 - Laboratory Result Diagrams: 12/03/19 04:05 12/03/19 04:05 Laboratory results interpreted by me: 12/03/19 12/03/19 12/03/19 04:05 04:05 04:05 RBC 2.91 L Hgb 9.5 L Hct 27.5 L RDW 22.0 H Plt Count 507 H Reticulocyte # 0.222 H Retic Count (auto) 7.61 H D-Dimer 2.22 H Sodium 136.6 L Total Bilirubin 1.4 H Total Protein 8.4 H - EKG Interpretation by Me Additional EKG results interpreted by me: 12/03/19 06:40 Heart rate 79, sinus rhythm, no significant ST elevations or depressions, T wave inversions in V5 V6 Discharge - Discharge Clinical Impression: Sickle cell crisis Chest pain Qualifiers: Chest pain type: unspecified Qualified Code(s): R07.9 - Chest pain, unspecified Disposition: ADMITTED INPATIENT Admitting Provider: Andreea (Hospitalist) Referrals: BETH STAPLETON MD [Primary Care Provider] - Follow up as needed
[2019-12-03 04:24] LABS: ABSOLUTE RETICS # 0.222 10^6/uL (0.028-0.122); HEMATOCRIT 27.5 % (37.9-51.0); HEMOGLOBIN 9.5 g/dL (13.5-17.0); MEAN CORPUSCULAR HEMOGLOBIN 32.5 pg (27.0-33.4); MEAN CORPUSCULAR HGB CONC 34.3 g/dL (32.0-36.0); MEAN CORPUSCULAR VOLUME 95 fl (80-97); PLATELET COUNT 507 10^3/uL (150-450); RED BLOOD COUNT 2.91 10^6/uL (4.35-5.55); RETICULOCYTE COUNT (AUTO) 7.61 % (0.66-2.85); WHITE BLOOD COUNT 9.4 10^3/uL (4.0-10.5)
[2019-12-03 04:37] LABS: ALBUMIN 4.4 g/dL (3.5-5.0); ALKALINE PHOSPHATASE 82 U/L (38-126); ANION GAP 6 (5-19); ASPARTATE AMINO TRANSFERASE 32 U/L (17-59); BILIRUBIN,TOTAL 1.4 mg/dL (0.2-1.3); BLOOD UREA NITROGEN 7 mg/dL (7-20); CALCIUM 8.7 mg/dL (8.4-10.2); CARBON DIOXIDE 28 mmol/L (22-30); CHLORIDE 103 mmol/L (98-107); CREATINE KINASE 70 U/L (55-170); GLUCOSE 96 mg/dL (75-110); POTASSIUM 3.8 mmol/L (3.6-5.0); TOTAL PROTEIN 8.4 g/dL (6.3-8.2)
[2019-12-03 04:45] LABS: ABSOLUTE LYMPHOCYTES# (MANUAL) 1.9 10^3/uL (0.5-4.7); BASOPHILS % (MANUAL) 0 % (0-2); EOSINOPHILS % (MANUAL) 2 % (0-6); LYMPHOCYTES % (MANUAL) 20 % (13-45); MONOCYTES % (MANUAL) 11 % (3-13); NUCLEATED RED BLOOD CELLS 1 /100 WBC (0); SEGMENTED NEUTROPHILS % (MAN) 67 % (42-78); TOTAL CELLS COUNTED 100
[2019-12-03 04:47] LABS: ANISOCYTOSIS 3+; CREATINE KINASE MB < 0.22 ng/mL (<4.55); OVALOCYTES SLIGHT; POIKILOCYTOSIS 1+; POLYCHROMASIA 1+; SCHISTOCYTES SLIGHT; TEAR DROP CELLS SLIGHT; TOXIC GRANULATION SLIGHT; TOXIC VACUOLATION PRESENT; TROPONIN I 0.015 ng/mL
[2019-12-03 04:48] LABS: BURR CELLS SLIGHT; PLATELET COMMENT INCREASED; SICKLE RED CELLS 1+
[2019-12-03] MEDS: HYDROMORPHONE HCL INJ/PF 2 MG/ML AMPULE IV ONE ×2 (05:51→06:12)
[2019-12-03 06:08] LABS: APPEARANCE,URINE CLEAR; BILIRUBIN,URINE NEGATIVE (NEGATIVE); COLOR,URINE YELLOW; GLUCOSE, URINE NEGATIVE (NEGATIVE); KETONES,URINE NEGATIVE (NEGATIVE); LEUKOCYTE ESTERASE,URINE NEGATIVE (NEGATIVE); NITRITE,URINE NEGATIVE (NEGATIVE); PROTEIN,URINE NEGATIVE (NEGATIVE); UROBILINOGEN,URINE NEGATIVE mg/dL (<2.0)
[2019-12-03] MEDS ORDERED: HYDROMORPHONE HCL INJ/PF 2 MG/ML AMPULE IV PRN ×2 (06:42→09:11)
--- NOTE | 2019-12-03 08:44 | RADIOLOGY REPORT (SQ) ---
EXAM DESCRIPTION: CT CHEST WITHOUT IMAGES COMPLETED DATE/TIME: 12/03/2019 7:26 am REASON FOR STUDY: sickle cell cp COMPARISON: 02/05/2018 TECHNIQUE: CT scan performed of the chest without intravenous contrast. Images reviewed with lung, soft tissue and bone windows. Reconstructed coronal and sagittal MPR images reviewed. All images st ored on PACS. All CT scanners at this facility use dose modulation, iterative reconstruction, and/or weight based d osing when appropriate to reduce radiation dose to as low as reasonably achievable (ALARA). [facility]: Dose Right [facility]: CareDose [facility]: Dose Right [facility]: Teradose 4D [facility]: [employer] RADIATION DOSE: CT Rad equipment meets quality standard of care and radiation dose reduction techniq ues were employed. CTDIvol: 11.1 mGy. DLP: 421 mGy-cm. mGy. LIMITATIONS: No technical limitations. FINDINGS: LUNGS AND PLEURA: Subsegmental airspace disease the lower lobes. No effusions. HILAR AND MEDIASTINAL STRUCTURES: No identified masses or abnormal nodes. No obvious aneurysm. HEART AND VASCULAR STRUCTURES: No aneurysm. No pericardial effusion. UPPER ABDOMEN: No significant findings. Limited exam. THYROID AND OTHER SOFT TISSUES: Gynecomastia. BONES: No significant finding. HARDWARE: None in the chest. OTHER: Left-sided port tip in the SVC. IMPRESSION: Bilateral pneumonia. TECHNICAL DOCUMENTATION: JOB ID: [id number] Quality ID # [id number]: Final reports with documentation of one or more dose reduction techniques (e.g., Au tomated exposure control, adjustment of the mA and/or kV according to patient size, use of iterative reconstruction technique) 2010 [email or web address]- All Rights Reserved Reading location - IP/workstation name: [email or web address]
[2019-12-03] MEDS ORDERED: NORMAL SALINE 1000 ML 1,000 ML IV PRN (08:59)
[2019-12-03] MEDS ORDERED: ACETAMINOPHEN 325 MG TABLET PO PRN (09:09)
[2019-12-03] MEDS ORDERED: BACLOFEN 10 MG TABLET PO PRN (09:29)
[2019-12-03] MEDS ORDERED: MELATONIN 5 MG TABLET PO PRN (09:29)
[2019-12-03] MEDS ORDERED: PSEUDOEPHEDRINE HCL 30 MG TABLET PO PRN (09:29)
--- NOTE | 2019-12-03 09:29 | PDOC H&P ---
History of Present Illness Admission Date/PCP: BETH STAPLETON MD Patient complains of: Chest pain History of Present Illness: MARISA GARBER is a 38 year old male with history of sickle cell disease, frequent admissions for sickle cell pain episodes, acute chest syndrome, who presents to the hospital for evaluation of chest pain. Pain has been going on f or several days now and has been receiving treatment in the outpatient setting with IV fluids and narcotics. He has also been started on doxycycline a few days ago for treatment of possible pneumonia. However his pain has persisted despite these and now coming to the hospital for evaluation. He also continues to have pain in his joints and bones which he states are similar to his prior pain episodes. Discussed with Dr. Stapleton who recommends admission for treatment of acute pain crisis. Past Medical History Cardiac Medical History: Denies: Atrial Fibrillation, Congestive Heart Failure, Coronary Artery Disease, DVT, Myocardial Infarction, Hyperlipidema, Hypertension, Peripheral Vascular Disease, Pulmonary Embolism Pulmonary Medical History: Denies: Asthma, Bronchitis, Chronic Obstructive Pulmonary Disease (COPD), Pn eumonia, Respiratory Failure, Tuberculosis Neurological Medical History: Denies: Migraine, Seizures Endocrine Medical History: Denies: Diabetes Mellitus Type 1, Diabetes Mellitus Type 2, Hyperthyroidism, Hypothyroidism GI Medical History: Denies: Cirrhosis, Crohn's Disease, Gastroesophageal Reflux Disease, Hepatitis, Ulcerative Colitis Musculoskeltal Medical History: Denies: Arthritis, Gout Skin Medical History: Denies: Eczema, Psoriasis Psychiatric Medical History: Reports: Depression Hematology: Reports: Anemia, Sickle Cell Disease Denies: Hemophilia, Bleeding Tendencies Past Surgical History Past Surgical History: Reports: Appendectomy, Vascular Surgery - L port placement, Other - Port placement Social History Smoking Status: Never Smoker Frequency of Alcohol Use: None Hx Recreational Drug Use: No Drugs: None Hx Prescription Drug Abuse: No - Advance Directive Resuscitation Status: Full Code Family History Family History: Reviewed & Not Pertinent, Hypertension, Other - Sickle cell anemia Parental Family History Reviewed: Yes Children Family History Reviewed: NA Sibling(s) Family History Reviewed.: NA Medication/Allergy Home Medications: Oxycodone HCl [Oxy-Ir 5 mg Tablet] 10 mg PO Q4HP PRN 02/19/19 Ibuprofen [Ibu] 600 mg PO Q8HP PRN 10/17/19 Docusate Sodium [Colace 100 mg Capsule] 100 mg PO BID capsule 10/26/19 Folic Acid [Folvite 1 mg Tablet] 1 mg PO DAILY tablet 10/26/19 Hydroxyurea [Hydrea 500 mg Capsule] 1,500 mg PO DAILY capsule 10/26/19 Methadone HCl [Dolophine 10 mg Tablet] 5 mg PO Q8 tablet 10/26/19 Baclofen [Baclofen 10 mg Tablet] 10 mg PO BIDP PRN 12/03/19 Melatonin [Melatonin 5 mg Tablet] 10 mg PO HSP PRN 12/03/19 Pseudoephedrine HCl [Sudafed 30 mg Tablet] 30 mg PO Q6HP PRN 12/03/19 Allergies/Adverse Reactions: famotidine [From Pepcid] Allergy (Severe, Verified 11/02/19 11:45) Anaphylaxis ketorolac tromethamine [From Toradol] Allergy (Severe, Verified 11/02/19 11:45) levofloxacin [From Levaquin] Allergy (Severe, Verified 11/02/19 11:45) meperidine HCl [From Demerol] Allergy (Severe, Verified 11/02/19 11:45) morphine [Morphine] Allergy (Severe, Verified 11/02/19 11:45) tramadol HCl [From Ultram] Allergy (Severe, Verified 11/02/19 11:45) amoxicillin [Amoxicillin] Allergy (Verified 11/02/19 11:45) fentanyl [Fentanyl] Allergy (Verified 11/02/19 11:45) latex [Latex] Allergy (Verified 11/02/19 11:45) ondansetron HCl [From Zofran] Allergy (Verified 11/02/19 11:45) Pork/Porcine Containing Products Allergy (Verified 11/02/19 11:45) promethazine Allergy (Verified 11/02/19 11:45) Review of Systems Constitutional: ABSENT: chills, fever(s) Eyes: ABSENT: visual disturbances Nose, Mouth, and Throat: PRESENT: headache(s) - Occasionally Cardiovascular: PRESENT: chest pain Respiratory: PRESENT: cough - Minimal. ABSENT: sputum Gastrointestinal: ABSENT: abdominal pain, nausea, vomiting Neurological: ABSENT: abnormal speech, confusion Endocrine: ABSENT: flushing Hematologic/Lymphatic: ABSENT: easy bleeding Allergic/Immunologic: ABSENT: seasonal rhinorrhea Physical Exam Vital Signs: Temp Pulse Resp BP Pulse Ox 98.4 F 69 12 149/96 H 100 12/03/19 03:41 12/03/19 03:41 12/03/19 05:01 12/03/19 05:01 12/03/19 05:01 Intake & Output 12/02/19 12/03/19 12/04/19 06:59 06:59 06:59 Intake Total 1000 Balance 1000 Weight 90.4 kg General appearance: PRESENT: no acute distress, cooperative Head exam: PRESENT: normocephalic Eye exam: PRESENT: EOMI Neck exam: ABSENT: JVD Respiratory exam: PRESENT: crackles - Bilateral lung base, symmetrical, unlabored. ABSENT: tachypnea, wheezes Cardiovascular exam: PRESENT: RRR, +S1, +S2. ABSENT: tachycardia GI/Abdominal exam: PRESENT: soft. ABSENT: rebound, rigid, tenderness Extremities exam: ABSENT: calf tenderness, pedal edema Neurological exam: PRESENT: alert, awake, oriented to person, oriented to place, oriented to time Psychiatric exam: ABSENT: agitated, anxious Skin exam: ABSENT: jaundice Results Laboratory Results: 12/03/19 04:05 12/03/19 04:05 12/03/19 12/03/19 12/03/19 04:05 04:05 05:20 WBC 9.4 RBC 2.91 L Hgb 9.5 L Hct 27.5 L MCV 95 MCH 32.5 MCHC 34.3 RDW 22.0 H Plt Count 507 H Seg Neutrophils % Not Reportable Retic Count (auto) 7.61 H Sodium 136.6 L Potassium 3.8 Chloride 103 Carbon Dioxide 28 Anion Gap 6 BUN 7 Creatinine 0.60 Est GFR ( Amer) > 60 Glucose 96 Calcium 8.7 Total Bilirubin 1.4 H AST 32 Alkaline Phosphatase 82 Total Protein 8.4 H Albumin 4.4 Urine Color YELLOW Urine Appearance CLEAR Urine pH 6.0 Ur Specific [place] 1.010 Urine Protein NEGATIVE Urine Glucose (UA) NEGATIVE Urine Ketones NEGATIVE Urine Blood NEGATIVE Urine Nitrite NEGATIVE Ur Leukocyte Esterase NEGATIVE Urine WBC (Auto) 0 12/03/19 12/03/19 04:05 04:05 Creatine Kinase 70 CK-MB (CK-2) < 0.22 Troponin I 0.015 Impressions: Abdomen/Pelvis CT 12/02/19 22:08 IMPRESSION: No acute abnormality within the abdomen or pelvis. Questionable intermediate density about the dependent aspect of the urinary bladder is most likely artifactual rather than related to luminal debris. Cholelithiasis. 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 TECHNICAL DOCUMENTATION: Quality ID # 436: Final reports with documentation of one or more dose reduction techniques (e.g., Automated exposure control, adjustment of the mA and/or kV according to patient size, use of iterative reconstruction technique) copyright 2011 [employer]- All Rights Reserved Chest X-Ray 12/02/19 22:09 IMPRESSION: Stable chronic changes; no acute disease. copyright 2010 [employer]- All Rights Reserved Chest CT 12/03/19 06:16 IMPRESSION: Bilateral pneumonia. Assessment and Plan - Diagnosis (1) Sickle cell anemia with pain Is this a current diagnosis for this admission?: Yes Plan: Patient has good reticulocyte response. States that his pains he is feeling currently similar to his prior acute pain episodes. Being managed outpatient as well with frequent IV hydration and narcotics administration Will place patient on IV normal saline, incentive spirometer, Dilaudid, oxygen Resume hydroxyurea and folic acid Consider starting glutamine outpatient. (2) Bilateral interstitial pneumonia Is this a current diagnosis for this admission?: Yes Plan: Chest CT shows bilateral lower lung interstitial/reticular opacities. He has had somewhat similar presentation on his last CT last year but at that time seems like he was having a pneumonia. These findings could actually be secondary to chronic fibrosis of the lungs from prior infections/acute chest but also could be promotions representative of a pneumonia. No leukocytosis on labs. Has very evident crackles in lower lungs bilaterally Discussed with Dr. Stapleton about lung infiltrates and possibility of acute chest syndrome and he recommends that patient does not need exchange transfusion as he is not hypoxic and that acute chest is less likely in this situation. Recently started on treatment with doxycycline for pneumonia in the outpatient setting which I will continue for atypical coverage. Check sputum cultures Also will need to be COVID tested. (3) Chest pain Qualifiers: Chest pain type: unspecified Qualified Code(s): R07.9 - Chest pain, unspecified Is this a current diagnosis for this admission?: Yes Plan: He states he feels similar to his prior acute pain episode. However EKG does show new T wave inversions in his V5 V6 leads. First troponin is negative. Will repeat another Repeat EKG - Time Time Spent with patient: 35 or more minutes Anticipated Discharge Disposition: Home, Self Care Anticipated Discharge Timeframe: undetermined
[2019-12-03] MEDS: DOXYCYCLINE HYCLATE 100 MG TABLET PO SCH ×2 (09:48→21:10)
[2019-12-03] MEDS: ENOXAPARIN SODIUM INJ 40 MG/0.4 ML DISP.SYRIN SUBCUT SCH (09:48)
[2019-12-03] MEDS ORDERED: DOXYCYCLINE HYCLATE INJ 100 MG VIAL IV SCH (10:00)
[2019-12-03] MEDS ORDERED: PROMETHAZINE HCL INJ 25 MG/1 ML VIAL IV PRN (10:37)
[2019-12-03] MEDS ORDERED: ONDANSETRON HCL INJ/PF 4 MG/2 ML SDV IV PRN (10:38)
[2019-12-03] MEDS ORDERED: SENNOSIDES/DOCUSATE 8.6-50 MG 1 EACH TABLET PO PRN (10:39)
[2019-12-03] MEDS ORDERED: POLYETHYLENE GLYCOL 3350 POWDER 17 GM/1 PACKET PO PRN (10:39)
[2019-12-03] MEDS: DIPHENHYDRAMINE HCL 50 MG/ML VIAL IV PRN ×3 (11:17→23:59)
[2019-12-03] MEDS: NORMAL SALINE 1000 ML 1,000 ML IV PRN ×2 (11:17→21:10)
[2019-12-03] MEDS: HYDROMORPHONE HCL INJ/PF 2 MG/ML AMPULE IV PRN ×4 (11:18→21:02)
[2019-12-03] MEDS: FOLIC ACID 1 MG TABLET PO SCH (11:20)
[2019-12-03] MEDS: DOCUSATE SODIUM 100 MG CAPSULE PO SCH ×2 (11:21→17:26)
[2019-12-03] MEDS: HYDROXYUREA 500 MG CAPSULE PO SCH (11:21)
[2019-12-03] MEDS: METHADONE HCL 10 MG TABLET PO SCH ×2 (13:33→17:26)
--- NOTE | 2019-12-03 15:21 | EKG REPORT ---
SEVERITY:- ABNORMAL ECG - SINUS RHYTHM PROBABLE LVH WITH SECONDARY REPOL ABNRM ANTERIOR Q WAVES, POSSIBLY DUE TO LVH : Confirmed by: Braxton Macedo MD 03-Dec-2019 15:19:34
--- NOTE | 2019-12-03 17:36 | PDOC CONSULTATION ---
Consultation Consult Date: 12/03/19 Provider Consulted: TONI BERRY Consult reason:: Hematology/Oncology consultation was requested for patient with acute pain crisis from Sickle Cell Anemia. History of Present Illness Admission Date/PCP: 12/03/19 09:34 BETH STAPLETON MD History of Present Illness: MARISA GARBER is a 38 year old male with frequent admissions for pain crises from his sickle cell anemia. He states that he has been trying to control pain as an outpatient all week. However, his pain is much worse today. No atypical symptoms. Just muscle and joint pains all over. He is receiving IV fluids and O2 here in the ED. Past Medical History Cardiac Medical History: Denies: Atrial Fibrillation, Congestive Heart Failure, Coronary Artery Disease, DVT, Myocardial Infarction, Hyperlipidema, Hypertension, Peripheral Vascular Disease, Pulmonary Embolism Pulmonary Medical History: Denies: Asthma, Bronchitis, Chronic Obstructive Pulmonary Disease (COPD), Pneumonia, Respiratory Failure, Tuberculosis Neurological Medical History: Denies: Migraine, Seizures Endocrine Medical History: Denies: Diabetes Mellitus Type 1, Diabetes Mellitus Type 2, Hyperthyroidism, Hypothyroidism GI Medical History: Denies: Cirrhosis, Crohn's Disease, Gastroesophageal Reflux Disease, Hepatitis, Ulcerative Colitis Musculoskeltal Medical History: Denies: Arthritis, Gout Skin Medical History: Denies: Eczema, Psoriasis Psychiatric Medical History: Reports: Depression Hematology: Reports: Anemia, Sickle Cell Disease Denies: Hemophilia, Bleeding Tendencies Past Surgical History Past Surgical History: Reports: Appendectomy, Vascular Surgery - L port placement, Other - Port placement Social History Smoking Status: Never Smoker Frequency of Alcohol Use: None Hx Recreational Drug Use: No Drugs: None Hx Prescription Drug Abuse: No - Advance Directive Resuscitation Status: Full Code Family History Family History: Reviewed & Not Pertinent, Hypertension, Other - Sickle cell anem ia Parental Family History Reviewed: Yes Children Family History Reviewed: No Sibling(s) Family History Reviewed.: Yes Medication/Allergy Home Medications: Oxycodone HCl [Oxy-Ir 5 mg Tablet] 10 mg PO Q4HP PRN 02/19/19 Ibuprofen [Ibu] 600 mg PO Q8HP PRN 10/17/19 Docusate Sodium [Colace 100 mg Capsule] 100 mg PO BID capsule 10/26/19 Folic Acid [Folvite 1 mg Tablet] 1 mg PO DAILY tablet 10/26/19 Hydroxyurea [Hydrea 500 mg Capsule] 1,500 mg PO DAILY capsule 10/26/19 Methadone HCl [Dolophine 10 mg Tablet] 5 mg PO Q8 tablet 10/26/19 Baclofen [Baclofen 10 mg Tablet] 10 mg PO BIDP PRN 12/03/19 Melatonin [Melatonin 5 mg Tablet] 10 mg PO HSP PRN 12/03/19 Pseudoephedrine HCl [Sudafed 30 mg Tablet] 30 mg PO Q6HP PRN 12/03/19 Allergies/Adverse Reactions: famotidine [From Pepcid] Allergy (Severe, Verified 11/02/19 11:45) Anaphylaxis ketorolac tromethamine [From Toradol] Allergy (Severe, Verified 11/02/19 11:45) levofloxacin [From Levaquin] Allergy (Severe, Verified 11/02/19 11:45) meperidine HCl [From Demerol] Allergy (Severe, Verified 11/02/19 11:45) morphine [Morphine] Allergy (Severe, Verified 11/02/19 11:45) tramadol HCl [From Ultram] Allergy (Severe, Verified 11/02/19 11:45) amoxicillin [Amoxicillin] Allergy (Verified 11/02/19 11:45) fentanyl [Fentanyl] Allergy (Verified 11/02/19 11:45) latex [Latex] Allergy (Verified 11/02/19 11:45) ondansetron HCl [From Zofran] Allergy (Verified 11/02/19 11:45) Pork/Porcine Containing Products Allergy (Verified 11/02/19 11:45) promethazine Allergy (Verified 11/02/19 11:45) Review of Systems Constitutional: ABSENT: fever(s), headache(s) Eyes: ABSENT: visual disturbances Ears: ABSENT: hearing changes Nose, Mouth, and Throat: ABSENT: sore throat Cardiovascular: PRESENT: chest pain Respiratory: ABSENT: dyspnea Gastrointestinal: ABSENT: constipation, nausea Genitourinary: ABSENT: dysuria Musculoskeletal: PRESENT: other - joint pains Integumentary: PRESENT: pruritus. ABSENT: rash Neurological: ABSENT: confusion, weakness Hematologic/Lymphatic: ABSENT: easy bleeding Physical Exam Vital Signs: Temp Pulse Resp BP Pulse Ox 98.0 F 69 15 129/84 H 100 12/03/19 15:10 12/03/19 03:41 12/03/19 13:31 12/03/19 13:31 12/03/19 13:31 Intake & Output 12/02/19 12/03/19 12/04/19 06:59 06:59 06:59 Intake Total 1000 Balance 1000 Weight 90.4 kg General appearance: PRESENT: no acute distress, well-developed, well-nourished Exam: 38 year old male. Head exam: PRESENT: normocephalic Eye exam: PRESENT: EOMI Mouth exam: PRESENT: tongue midline Neck exam: ABSENT: lymphadenopathy, tenderness Respiratory exam: PRESENT: clear to auscultation anastasiya, unlabored Cardiovascular exam: PRESENT: RRR GI/Abdominal exam: PRESENT: soft, tenderness Extremities exam: PRESENT: tenderness. ABSENT: +1 edema Musculoskeletal exam: PRESENT: other - Not visualized ambulating. Neurological exam: PRESENT: alert, awake Psychiatric exam: PRESENT: appropriate affect Skin exam: PRESENT: normal color Results Laboratory Results: 12/03/19 04:05 12/03/19 04:05 12/03/19 12/03/19 12/03/19 04:05 04:05 05:20 WBC 9.4 RBC 2.91 L Hgb 9.5 L Hct 27.5 L MCV 95 MCH 32.5 MCHC 34.3 RDW 22.0 H Plt Count 507 H Seg Neutrophils % Not Reportable Retic Count (auto) 7.61 H Sodium 136.6 L Potassium 3.8 Chloride 103 Carbon Dioxide 28 Anion Gap 6 BUN 7 Creatinine 0.60 Est GFR ( Amer) > 60 Glucose 96 Calcium 8.7 Total Bilirubin 1.4 H AST 32 Alkaline Phosphatase 82 Total Protein 8.4 H Albumin 4.4 Urine Color YELLOW Urine Appearance CLEAR Urine pH 6.0 Ur Specific [place] 1.010 Urine Protein NEGATIVE Urine Glucose (UA) NEGATIVE Urine Ketones NEGATIVE Urine Blood NEGATIVE Urine Nitrite NEGATIVE Ur Leukocyte Esterase NEGATIVE Urine WBC (Auto) 0 12/03/19 12/03/19 12/03/19 04:05 04:05 11:25 Creatine Kinase 70 CK-MB (CK-2) < 0.22 Troponin I 0.015 < 0.012 Impressions: Abdomen/Pelvis CT 12/02/19 22:08 IMPRESSION: No acute abnormality within the abdomen or pelvis. Questionable intermediate density about the dependent aspect of the urinary bladder is most likely artifactual rather than related to luminal debris. Cholelithiasis. 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 TECHNICAL DOCUMENTATION: Quality ID # 436: Final reports with documentation of one or more dose reduction techniques (e.g., Automated exposure control, adjustment of the mA and/or kV according to patient size, use of iterative reconstruction technique) copyright 2010 [employer]- All Rights Reserved Chest X-Ray 12/02/19 22:09 IMPRESSION: Stable chronic changes; no acute disease. copyright 2010 [employer]- All Rights Reserved Chest CT 12/03/19 06:16 IMPRESSION: Bilateral pneumonia. Assessment & Plan - Diagnosis (1) Sickle cell anemia with pain Is this a current diagnosis for this admission?: Yes Plan: IV fluids, O2, pain medications. We discussed new studies using gene therapy to cure sickle cell. The clinical trials have shown great promise, but we do not have access to these clinical trials here. There is a new FDA approved IV medication, but it has not received a J-code, so we are not yet able to adminis ter this. I will continue to follow with you. Please call me with any concerns.
[2019-12-04] MEDS: HYDROMORPHONE HCL INJ/PF 2 MG/ML AMPULE IV PRN ×10 (02:34→23:48)
[2019-12-04 05:40] LABS: ALBUMIN 3.7 g/dL (3.5-5.0); ALKALINE PHOSPHATASE 76 U/L (38-126); ANION GAP 6 (5-19); ASPARTATE AMINO TRANSFERASE 26 U/L (17-59); BILIRUBIN,TOTAL 1.7 mg/dL (0.2-1.3); BLOOD UREA NITROGEN 10 mg/dL (7-20); CALCIUM 8.2 mg/dL (8.4-10.2); CARBON DIOXIDE 28 mmol/L (22-30); CHLORIDE 104 mmol/L (98-107); GLUCOSE 117 mg/dL (75-110); TOTAL PROTEIN 7.2 g/dL (6.3-8.2)
[2019-12-04] MEDS: METHADONE HCL 10 MG TABLET PO SCH ×5 (06:16→23:45)
[2019-12-04 06:48] LABS: HEMATOCRIT 24.5 % (37.9-51.0); HEMOGLOBIN 8.8 g/dL (13.5-17.0); MEAN CORPUSCULAR HEMOGLOBIN 33.6 pg (27.0-33.4); MEAN CORPUSCULAR HGB CONC 35.9 g/dL (32.0-36.0); MEAN CORPUSCULAR VOLUME 94 fl (80-97); PLATELET COUNT 407 10^3/uL (150-450); RED BLOOD COUNT 2.62 10^6/uL (4.35-5.55); RED CELL DISTRIBUTION WIDTH 21.6 % (11.5-14.0); WHITE BLOOD COUNT 6.1 10^3/uL (4.0-10.5)
[2019-12-04 07:10] LABS: ABSOLUTE MONOCYTES # (MANUAL) 0.6 10^3/uL (0.1-1.4); BAND NEUTROPHILS % (MANUAL) 1 % (3-5); BASOPHILS % (MANUAL) 1 % (0-2); EOSINOPHILS % (MANUAL) 4 % (0-6); LYMPHOCYTES % (MANUAL) 17 % (13-45); MONOCYTES % (MANUAL) 10 % (3-13); SEGMENTED NEUTROPHILS % (MAN) 67 % (42-78); TOTAL CELLS COUNTED 100
[2019-12-04 07:12] LABS: ANISOCYTOSIS 3+; OVALOCYTES 1+; PLATELET COMMENT ADEQUATE; POLYCHROMASIA SLIGHT; SICKLE RED CELLS SLIGHT
[2019-12-04] MEDS: DIPHENHYDRAMINE HCL 50 MG/ML VIAL IV PRN ×3 (08:30→20:44)
[2019-12-04] MEDS: DOCUSATE SODIUM 100 MG CAPSULE PO SCH ×2 (09:05→18:18)
[2019-12-04] MEDS: ENOXAPARIN SODIUM INJ 40 MG/0.4 ML DISP.SYRIN SUBCUT SCH (09:05)
[2019-12-04] MEDS: DOXYCYCLINE HYCLATE 100 MG TABLET PO SCH ×2 (09:05→22:13)
[2019-12-04] MEDS: FOLIC ACID 1 MG TABLET PO SCH (09:05)
--- NOTE | 2019-12-04 10:35 | PDOC PROGRESS REPORT ---
Subjective Progress Note for:: 12/04/19 Subjective:: Patient was concerned about being in the COVID units today. I expressed to him because of his diagnosis of bilateral pneumonia noted on CAT scan, he needs to be ruled out for coronavirus and has to be in the isolation unit until then. Explained to him that we will take precautions in order to prevent cross- contamination. He still states he has pain in his chest as well as in his legs and hips. He denies fevers or chills. Reason For Visit: SICKLE CELL PAIN,PNEUMONIA Physical Exam Vital Signs: Temp Pulse Resp BP Pulse Ox 98.4 F 81 21 H 136/85 H 98 12/04/19 08:51 12/04/19 08:51 12/04/19 08:51 12/04/19 08:51 12/04/19 08:51 Intake & Output 12/03/19 12/04/19 12/05/19 06:59 06:59 06:59 Intake Total 1000 1000 Output Total 1700 Balance 1000 -700 Weight 90.4 kg 90.4 kg General appearance: PRESENT: no acute distress, cooperative Neck exam: ABSENT: JVD Respiratory exam: PRESENT: crackles - bibasilar, symmetrical, unlabored. ABSENT: tachypnea, wheezes Cardiovascular exam: PRESENT: RRR, +S1, +S2. ABSENT: tachycardia GI/Abdominal exam: PRESENT: soft. ABSENT: rebound, rigid, tenderness Neurological exam: PRESENT: alert, awake, oriented to person, oriented to place, oriented to time Results Laboratory Results: 12/04/19 06:30 12/04/19 04:55 12/04/19 12/04/19 12/04/19 04:55 04:55 06:30 WBC Cancelled 6.1 RBC Cancelled 2.62 L Hgb Cancelled 8.8 L Hct Cancelled 24.5 L MCV Cancelled 94 MCH Cancelled 33.6 H MCHC Cancelled 35.9 RDW Cancelled 21.6 H Plt Count Cancelled 407 Seg Neutrophils % Cancelled Not Reportable Sodium 138.4 Potassium 4.0 Chloride 104 Carbon Dioxide 28 Anion Gap 6 BUN 10 Creatinine 0.60 Est GFR ( Amer) > 60 Glucose 117 H Calcium 8.2 L Total Bilirubin 1.7 H AST 26 Alkaline Phosphatase 76 Total Protein 7.2 Albumin 3.7 12/03/19 12/03/19 12/03/19 04:05 04:05 11:25 Creatine Kinase 70 CK-MB (CK-2) < 0.22 Troponin I 0.015 < 0.012 Impressions: Abdomen/Pelvis CT 12/02/19 22:08 IMPRESSION: No acute abnormality within the abdomen or pelvis. Questionable intermediate density about the dependent aspect of the urinary bladder is most likely artifactual rather than related to luminal debris. Cholelithiasis. 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 TECHNICAL DOCUMENTATION: Quality ID # 436: Final reports with documentation of one or more dose reduction techniques (e.g., Automated exposure control, adjustment of the mA and/or kV according to patient size, use of iterative reconstruction technique) copyright 2010 [employer]- All Rights Reserved Chest X-Ray 12/02/19 22:09 IMPRESSION: Stable chronic changes; no acute disease. copyright 2010 [employer]- All Rights Reserved Chest CT 12/03/19 06:16 IMPRESSION: Bilateral pneumonia. Assessment and Plan - Diagnosis (1) Sickle cell anemia with pain Is this a current diagnosis for this admission?: Yes Plan: Patient has good reticulocyte response. States that his pains he is feeling currently similar to his prior acute pain episodes. Being managed outpatient as well with frequent IV hydration and narcotics administration IV normal saline, incentive spirometer, Dilaudid, oxygen Continue hydroxyurea and folic acid Consider starting glutamine outpatient. (2) Bilateral interstitial pneumonia Is this a current diagnosis for this admission?: Yes Plan: Chest CT shows bilateral lower lung interstitial/reticular opacities. He has had somewhat similar presentation on his last CT last year but at that time seems like he was having a pneumonia as well. 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 No leukocytosis on labs. Has very evident crackles in lower lungs bilaterally Discussed with Dr. Medellin about lung infiltrates and possibility of acute chest syndrome and he recommends that patient does not need exchange transfusion as he is not hypoxic and that acute chest is less likely in this situation. Recently started on treatment with doxycycline for pneumonia in the outpatient setting which I will continue for atypical coverage. Currently unable to obtain sputum sample. Given bilateral distribution of pneumonia, patient was COVID tested. (3) Chest pain Qualifiers: Chest pain type: unspecified Qualified Code(s): R07.9 - Chest pain, unspecified Is this a current diagnosis for this admission?: Yes Plan: He states he feels similar to his prior acute pain episode. However initial EKG does show new T wave inversions in his V5 V6 leads. Repeat EKG shows resolution of TWI in V6 but still present in V5. Troponins were negative. - Time Time Spent with patient: 15-24 minutes Anticipated Discharge Disposition: Home, Self Care Anticipated Discharge Timeframe: within 72 hours
[2019-12-04] MEDS: HYDROXYUREA 500 MG CAPSULE PO SCH (11:32)
[2019-12-04] MEDS: NORMAL SALINE 1000 ML 1,000 ML IV PRN (11:34)
--- NOTE | 2019-12-04 16:36 | EKG REPORT ---
SEVERITY:- BORDERLINE ECG - SINUS RHYTHM BORDERLINE T ABNORMALITIES, ANT-LAT LEADS : Confirmed by: Braxton Macedo MD 04-Dec-2019 16:35:34
[2019-12-05] MEDS: HYDROMORPHONE HCL INJ/PF 2 MG/ML AMPULE IV PRN ×10 (02:04→22:06)
[2019-12-05] MEDS: DIPHENHYDRAMINE HCL 50 MG/ML VIAL IV PRN ×5 (02:05→20:02)
[2019-12-05 05:06] LABS: HEMATOCRIT 24.2 % (37.9-51.0); HEMOGLOBIN 8.4 g/dL (13.5-17.0); MEAN CORPUSCULAR HEMOGLOBIN 32.5 pg (27.0-33.4); MEAN CORPUSCULAR HGB CONC 34.6 g/dL (32.0-36.0); MEAN CORPUSCULAR VOLUME 94 fl (80-97); PLATELET COUNT 439 10^3/uL (150-450); RED BLOOD COUNT 2.58 10^6/uL (4.35-5.55); RED CELL DISTRIBUTION WIDTH 20.8 % (11.5-14.0); WHITE BLOOD COUNT 6.7 10^3/uL (4.0-10.5)
[2019-12-05 05:25] LABS: ABSOLUTE LYMPHOCYTES# (MANUAL) 1.4 10^3/uL (0.5-4.7); ABSOLUTE MONOCYTES # (MANUAL) 0.7 10^3/uL (0.1-1.4); BAND NEUTROPHILS % (MANUAL) 1 % (3-5); BASOPHILS % (MANUAL) 1 % (0-2); EOSINOPHILS % (MANUAL) 2 % (0-6); LYMPHOCYTES % (MANUAL) 21 % (13-45); MONOCYTES % (MANUAL) 11 % (3-13); SEGMENTED NEUTROPHILS % (MAN) 64 % (42-78); TOTAL CELLS COUNTED 100
[2019-12-05 05:27] LABS: ANISOCYTOSIS 2+; HOWELL-JOLLY BODIES PRESENT; OVALOCYTES SLIGHT; PLATELET COMMENT ADEQUATE; POIKILOCYTOSIS 1+; POLYCHROMASIA SLIGHT; SICKLE RED CELLS SLIGHT; TARGET CELLS 1+; TOXIC VACUOLATION PRESENT
[2019-12-05 05:40] LABS: ALBUMIN 3.9 g/dL (3.5-5.0); ALKALINE PHOSPHATASE 68 U/L (38-126); ASPARTATE AMINO TRANSFERASE 28 U/L (17-59); BILIRUBIN,TOTAL 1.8 mg/dL (0.2-1.3); BLOOD UREA NITROGEN 9 mg/dL (7-20); CALCIUM 8.4 mg/dL (8.4-10.2); GLUCOSE 115 mg/dL (75-110); POTASSIUM 4.3 mmol/L (3.6-5.0); TOTAL PROTEIN 7.5 g/dL (6.3-8.2)
[2019-12-05] MEDS: METHADONE HCL 10 MG TABLET PO SCH ×4 (05:40→23:13)
[2019-12-05 05:45] LABS: CARBON DIOXIDE 31 mmol/L (22-30); CHLORIDE 104 mmol/L (98-107)
[2019-12-05 05:51] LABS: ANION GAP 4 (5-19)
[2019-12-05] MEDS: NORMAL SALINE 1000 ML 1,000 ML IV PRN ×2 (08:34→16:13)
[2019-12-05] MEDS: FOLIC ACID 1 MG TABLET PO SCH (10:34)
[2019-12-05] MEDS: DOXYCYCLINE HYCLATE 100 MG TABLET PO SCH ×2 (10:35→21:25)
[2019-12-05] MEDS: DOCUSATE SODIUM 100 MG CAPSULE PO SCH ×2 (10:35→17:04)
[2019-12-05] MEDS: ENOXAPARIN SODIUM INJ 40 MG/0.4 ML DISP.SYRIN SUBCUT SCH (10:40)
[2019-12-05] MEDS: HYDROXYUREA 500 MG CAPSULE PO SCH (10:53)
--- NOTE | 2019-12-05 15:43 | PDOC PROGRESS REPORT ---
Subjective Progress Note for:: 12/05/19 Subjective:: Patient states that he is still having some pains. However he does state that is starting to get better. Denies significant shortness of breath at this time. Reason For Visit: SICKLE CELL PAIN,PNEUMONIA Physical Exam Vital Signs: Temp Pulse Resp BP Pulse Ox 97.7 F 70 15 136/98 H 100 12/05/19 12:00 12/05/19 12:00 12/05/19 12:00 12/05/19 12:00 12/05/19 12:00 Intake & Output 12/04/19 12/05/19 12/06/19 06:59 06:59 06:59 Intake Total 2000 1594 383 Output Total 1700 900 Balance 300 1594 -517 Weight 90.4 kg 90.5 kg General appearance: PRESENT: no acute distress, cooperative Neck exam: ABSENT: JVD Respiratory exam: PRESENT: crackles, unlabored. ABSENT: tachypnea, wheezes Neurological exam: PRESENT: alert, awake, oriented to person, oriented to place, oriented to time, oriented to situation Results Laboratory Results: 12/05/19 04:45 12/05/19 04:45 12/05/19 12/05/19 04:45 04:45 WBC 6.7 RBC 2.58 L Hgb 8.4 L Hct 24.2 L MCV 94 MCH 32.5 MCHC 34.6 RDW 20.8 H Plt Count 439 Seg Neutrophils % Not Reportable Sodium 138.7 Potassium 4.3 Chloride 104 Carbon Dioxide 31 H Anion Gap 4 L BUN 9 Creatinine 0.59 Est GFR ( Amer) > 60 Glucose 115 H Calcium 8.4 Total Bilirubin 1.8 H AST 28 Alkaline Phosphatase 68 Total Protein 7.5 Albumin 3.9 12/03/19 12/03/19 12/03/19 04:05 04:05 11:25 Creatine Kinase 70 CK-MB (CK-2) < 0.22 Troponin I 0.015 < 0.012 Impressions: Abdomen/Pelvis CT 12/02/19 22:08 IMPRESSION: No acute abnormality within the abdomen or pelvis. Questionable intermediate density about the dependent aspect of the urinary bladder is most likely artifactual rather than related to luminal debris. Cholelithiasis. 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 TECHNICAL DOCUMENTATION: Quality ID # 436: Final reports with documentation of one or more dose reduction techniques (e.g., Automated exposure control, adjustment of the mA and/or kV according to patient size, use of iterative reconstruction technique) copyright 2010 [email or web address]- All Rights Reserved Chest X-Ray 12/02/19 22:09 IMPRESSION: Stable chronic changes; no acute disease. copyright 2010 [email or web address]- All Rights Reserved Chest CT 12/03/19 06:16 IMPRESSION: Bilateral pneumonia. Assessment and Plan - Diagnosis (1) Sickle cell anemia with pain Is this a current diagnosis for this admission?: Yes Plan: Patient has good reticulocyte response. States that his pains he is feeling currently similar to his prior acute pain episodes. Being managed outpatient as well with frequent IV hydration and narcotics administration IV normal saline, incentive spirometer, Dilaudid, oxygen Continue hydroxyurea and folic acid Consider starting glutamine outpatient. (2) Bilateral interstitial pneumonia Is this a current diagnosis for this admission?: Yes Plan: Chest CT shows bilateral lower lung interstitial/reticular opacities. He has had somewhat similar presentation on his last CT last year but at that time seems like he was having a pneumonia as well. These findings could actually be secondary to chronic fibrosis of the lungs from prior infections/acute chest but also could be policy services representative of a new pneumonia. No leukocytosis on labs. Has very evident crackles in lower lungs bilaterally COVID test is negative. Continue doxycycline for 2 more days (3) Chest pain Qualifiers: Chest pain type: unspecified Qualified Code(s): R07.9 - Chest pain, unspecified Is this a current diagnosis for this admission?: Yes Plan: He states he feels similar to his prior sickle cell acute pain episode. However initial EKG does show new T wave inversions in his V5 V6 leads. Repeat EKG shows resolution of TWI in V6 but still present in V5. Troponins were negative. - Time Time Spent with patient: Less than 15 minutes Anticipated Discharge Disposition: Home, Self Care Anticipated Discharge Timeframe: within 72 hours
--- NOTE | 2019-12-05 15:55 | PDOC PROGRESS REPORT ---
Subjective Progress Note for:: 12/05/19 Subjective:: Patient states his pain is better today. He is wearing his O2 and SCDs. He has not yet been up to walk today. No new concerns. ROS: No dyspnea. No constipation. He does not understand why he had to be ruled out for COVID again. Reason For Visit: SICKLE CELL PAIN,PNEUMONIA Physical Exam Vital Signs: Temp Pulse Resp BP Pulse Ox 97.7 F 70 15 136/98 H 100 12/05/19 12:00 12/05/19 12:00 12/05/19 12:00 12/05/19 12:00 12/05/19 12:00 Intake & Output 12/04/19 12/05/19 12/06/19 06:59 06:59 06:59 Intake Total 1999 1594 383 Output Total 1700 900 Balance 300 1594 -517 Weight 90.4 kg 90.5 kg General appearance: PRESENT: no acute distress, well-developed, well-nourished Head exam: PRESENT: normocephalic Eye exam: PRESENT: EOMI Respiratory exam: PRESENT: unlabored Neurological exam: PRESENT: alert, awake Psychiatric exam: PRESENT: appropriate affect Skin exam: PRESENT: normal color Results Laboratory Results: 12/05/19 04:45 12/05/19 04:45 12/05/19 12/05/19 04:45 04:45 WBC 6.7 RBC 2.58 L Hgb 8.4 L Hct 24.2 L MCV 94 MCH 32.5 MCHC 34.6 RDW 20.8 H Plt Count 439 Seg Neutrophils % Not Reportable Sodium 138.7 Potassium 4.3 Chloride 104 Carbon Dioxide 31 H Anion Gap 4 L BUN 9 Creatinine 0.59 Est GFR ( Amer) > 60 Glucose 115 H Calcium 8.4 Total Bilirubin 1.8 H AST 28 Alkaline Phosphatase 68 Total Protein 7.5 Albumin 3.9 12/03/19 12/03/19 12/03/19 04:05 04:05 11:25 Creatine Kinase 70 CK-MB (CK-2) < 0.22 Troponin I 0.015 < 0.012 Impressions: Abdomen/Pelvis CT 12/02/19 22:08 IMPRESSION: No acute abnormality within the abdomen or pelvis. Questionable intermediate density about the dependent aspect of the urinary bladder is most likely artifactual rather than related to luminal debris. Cholelithiasis. 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 TECHNICAL DOCUMENTATION: Quality ID # 436: Final reports with documentation of one or more dose reduction techniques (e.g., Automated exposure control, adjustment of the mA and/or kV according to patient size, use of iterative reconstruction technique) copyright 2011 [employer]- All Rights Reserved Chest X-Ray 12/02/19 22:09 IMPRESSION: Stable chronic changes; no acute disease. copyright 2010 [employer]- All Rights Reserved Chest CT 12/03/19 06:16 IMPRESSION: Bilateral pneumonia. Assessment & Plan - Diagnosis (1) Sickle cell anemia with pain Is this a current diagnosis for this admission?: Yes Plan: Continue IV fluids, pain medications and oxygen. No indication for blood transfusion at this time. I would prefer to check routine labs only Mon-Wed-Fri and try to save as many blood cells as possible. - Time Time Spent with patient: Less than 15 minutes - Plan Summary Plan Summary: Please call with any concerns.
[2019-12-06] MEDS: HYDROMORPHONE HCL INJ/PF 2 MG/ML AMPULE IV PRN ×12 (00:03→23:00)
[2019-12-06] MEDS: DIPHENHYDRAMINE HCL 50 MG/ML VIAL IV PRN ×6 (00:03→20:54)
[2019-12-06] MEDS: METHADONE HCL 10 MG TABLET PO SCH ×4 (05:24→23:00)
[2019-12-06] MEDS: NORMAL SALINE 1000 ML 1,000 ML IV PRN ×2 (08:16→16:21)
[2019-12-06] MEDS: DOCUSATE SODIUM 100 MG CAPSULE PO SCH ×2 (09:17→18:17)
[2019-12-06] MEDS: FOLIC ACID 1 MG TABLET PO SCH (09:17)
[2019-12-06] MEDS: DOXYCYCLINE HYCLATE 100 MG TABLET PO SCH ×2 (09:17→21:01)
[2019-12-06] MEDS: HYDROXYUREA 500 MG CAPSULE PO SCH (09:18)
[2019-12-06] MEDS: ENOXAPARIN SODIUM INJ 40 MG/0.4 ML DISP.SYRIN SUBCUT SCH (10:11)
--- NOTE | 2019-12-06 13:33 | PDOC PROGRESS REPORT ---
Subjective Progress Note for:: 12/06/19 Subjective:: Patient states that he is still having some pains. However he does state that is starting to get better. Denies significant shortness of breath at this time. Reason For Visit: SICKLE CELL PAIN,PNEUMONIA Physical Exam Vital Signs: Temp Pulse Resp BP Pulse Ox 98.1 F 83 19 148/90 H 92 12/06/19 07:48 12/06/19 07:48 12/06/19 07:48 12/06/19 07:48 12/06/19 07:48 Intake & Output 12/05/19 12/06/19 12/07/19 06:59 06:59 06:59 Intake Total 1594 3299 Output Total 2200 Balance 1594 1099 Weight 90.5 kg 90.3 kg General appearance: PRESENT: no acute distress, cooperative Respiratory exam: PRESENT: symmetrical, unlabored. ABSENT: accessory muscle use, tachypnea, wheezes GI/Abdominal exam: ABSENT: ascites, distended Neurological exam: PRESENT: alert, awake, oriented to person, oriented to place, oriented to time, oriented to situation Psychiatric exam: ABSENT: agitated, anxious Results Laboratory Results: 12/05/19 04:45 12/05/19 04:45 12/03/19 12/03/19 12/03/19 04:05 04:05 11:25 Creatine Kinase 70 CK-MB (CK-2) < 0.22 Troponin I 0.015 < 0.012 Impressions: Abdomen/Pelvis CT 12/02/19 22:08 IMPRESSION: No acute abnormality within the abdomen or pelvis. Questionable intermediate density about the dependent aspect of the urinary bladder is most likely artifactual rather than related to luminal debris. Cholelithiasis. 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 TECHNICAL DOCUMENTATION: Quality ID # 436: Final reports with documentation of one or more dose reduction techniques (e.g., Automated exposure control, adjustment of the mA and/or kV according to patient size, use of iterative reconstruction technique) copyright 2011 [employer]- All Rights Reserved Chest X-Ray 12/02/19 22:09 IMPRESSION: Stable chronic changes; no acute disease. copyright 2011 [employer]- All Rights Reserved Chest CT 12/03/19 06:16 IMPRESSION: Bilateral pneumonia. Assessment and Plan - Diagnosis (1) Sickle cell anemia with pain Is this a current diagnosis for this admission?: Yes Plan: Patient has good reticulocyte response. States that his pains he is feeling currently similar to his prior acute pain episodes. Being managed outpatient as well with frequent IV hydration and narcotics administration IV normal saline, incentive spirometer, Dilaudid, oxygen. Encourage ambulation. Continue hydroxyurea and folic acid Consider starting glutamine outpatient. (2) Bilateral interstitial pneumonia Is this a current diagnosis for this admission?: Yes Plan: Chest CT shows bilateral lower lung interstitial/reticular opacities. He has had somewhat similar presentation on his last CT last year but at that time seems like he was having a pneumonia as well. These findings could actually be secondary to chronic fibrosis of the lungs from prior infections/acute chest but also could be [employer] sales representative of a new pneumonia. No leukocytosis on labs. Has very evident crackles in lower lungs bilaterally COVID test is negative. Continue doxycycline for 1 more day (3) Chest pain Qualifiers: Chest pain type: unspecified Qualified Code(s): R07.9 - Chest pain, unspecified Is this a current diagnosis for this admission?: Yes Plan: He states he feels similar to his prior sickle cell acute pain episode. However initial EKG does show new T wave inversions in his V5 V6 leads. Repeat EKG shows resolution of TWI in V6 but still present in V5. Troponins were negative. - Time Time Spent with patient: Less than 15 minutes Anticipated Discharge Disposition: Home, Self Care Anticipated Discharge Timeframe: within 48 hours
[2019-12-07] MEDS: DIPHENHYDRAMINE HCL 50 MG/ML VIAL IV PRN ×6 (01:04→21:35)
[2019-12-07] MEDS: NORMAL SALINE 1000 ML 1,000 ML IV PRN ×3 (01:04→17:41)
[2019-12-07] MEDS: HYDROMORPHONE HCL INJ/PF 2 MG/ML AMPULE IV PRN ×12 (01:05→23:40)
[2019-12-07] MEDS: METHADONE HCL 10 MG TABLET PO SCH ×4 (05:01→23:40)
[2019-12-07 05:05] LABS: HEMATOCRIT 22.8 % (37.9-51.0); HEMOGLOBIN 8.1 g/dL (13.5-17.0); MEAN CORPUSCULAR HGB CONC 35.6 g/dL (32.0-36.0); MEAN CORPUSCULAR VOLUME 93 fl (80-97); PLATELET COUNT 440 10^3/uL (150-450); RED BLOOD COUNT 2.46 10^6/uL (4.35-5.55); RED CELL DISTRIBUTION WIDTH 21.6 % (11.5-14.0); WHITE BLOOD COUNT 7.1 10^3/uL (4.0-10.5)
[2019-12-07 05:30] LABS: ALBUMIN 3.9 g/dL (3.5-5.0); ALKALINE PHOSPHATASE 79 U/L (38-126); ANION GAP 7 (5-19); ASPARTATE AMINO TRANSFERASE 31 U/L (17-59); BLOOD UREA NITROGEN 8 mg/dL (7-20); CALCIUM 8.8 mg/dL (8.4-10.2); CARBON DIOXIDE 31 mmol/L (22-30); CHLORIDE 99 mmol/L (98-107); GLUCOSE 145 mg/dL (75-110); POTASSIUM 4.4 mmol/L (3.6-5.0); TOTAL PROTEIN 7.6 g/dL (6.3-8.2)
[2019-12-07 05:40] LABS: ABSOLUTE LYMPHOCYTES# (MANUAL) 1.9 10^3/uL (0.5-4.7); ABSOLUTE MONOCYTES # (MANUAL) 0.5 10^3/uL (0.1-1.4); BASOPHILS % (MANUAL) 3 % (0-2); EOSINOPHILS % (MANUAL) 0 % (0-6); LYMPHOCYTES % (MANUAL) 27 % (13-45); MONOCYTES % (MANUAL) 7 % (3-13); NUCLEATED RED BLOOD CELLS 1 /100 WBC (0); SEGMENTED NEUTROPHILS % (MAN) 63 % (42-78); TOTAL CELLS COUNTED 100
[2019-12-07 05:42] LABS: ANISOCYTOSIS 3+; POIKILOCYTOSIS 3+; TOXIC GRANULATION 1+; TOXIC VACUOLATION PRESENT
[2019-12-07 05:43] LABS: HELMET CELLS SLIGHT; OVALOCYTES 1+; SCHISTOCYTES 1+; SICKLE RED CELLS 2+; TARGET CELLS 1+; TEAR DROP CELLS 1+
[2019-12-07 05:44] LABS: PLATELET COMMENT ADEQUATE
--- NOTE | 2019-12-07 08:10 | PDOC PROGRESS REPORT ---
Subjective Progress Note for:: 12/07/19 Subjective:: Patient states he tried to walk yesterday, but had severe dyspnea and was not able to get past his bathroom. Chest pain with Sickle Cell crisis still his biggest concern. Joint pain more manageable. ROS: No constipation, no dysuria. Reason For Visit: SICKLE CELL PAIN,PNEUMONIA Physical Exam Vital Signs: Temp Pulse Resp BP Pulse Ox 97.6 F 85 17 141/93 H 96 12/07/19 00:31 12/07/19 00:31 12/07/19 00:31 12/07/19 00:31 12/07/19 00:31 Intake & Output 12/06/19 12/07/19 12/08/19 06:59 06:59 06:59 Intake Total 3299 2614 Output Total 2200 3400 Balance 1099 -786 Weight 90.3 kg 95.1 kg General appearance: PRESENT: no acute distress, well-developed, well-nourished Head exam: PRESENT: normocephalic Eye exam: PRESENT: EOMI Respiratory exam: PRESENT: clear to auscultation anastasiya, unlabored Cardiovascular exam: PRESENT: RRR GI/Abdominal exam: PRESENT: normal bowel sounds, soft Extremities exam: PRESENT: other - SCDs in place.. ABSENT: pedal edema Neurological exam: PRESENT: alert, awake Psychiatric exam: PRESENT: appropriate affect Skin exam: PRESENT: normal color Results Laboratory Results: 12/07/19 04:30 12/07/19 04:30 12/07/19 12/07/19 04:30 04:30 WBC 7.1 RBC 2.46 L Hgb 8.1 L Hct 22.8 L MCV 93 MCH 33.0 MCHC 35.6 RDW 21.6 H Plt Count 440 Seg Neutrophils % Not Reportable Sodium 137.4 Potassium 4.4 Chloride 99 Carbon Dioxide 31 H Anion Gap 7 BUN 8 Creatinine 0.64 Est GFR ( Amer) > 60 Glucose 145 H Calcium 8.8 Total Bilirubin 2.0 H AST 31 Alkaline Phosphatase 79 Total Protein 7.6 Albumin 3.9 12/03/19 12/03/19 12/03/19 04:05 04:05 11:25 Creatine Kinase 70 CK-MB (CK-2) < 0.22 Troponin I 0.015 < 0.012 Impressions: Abdomen/Pelvis CT 12/02/19 22:08 IMPRESSION: No acute abnormality within the abdomen or pelvis. Questionable intermediate density about the dependent aspect of the urinary bladder is most likely artifactual rather than related to luminal debris. Cholelithiasis. 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 TECHNICAL DOCUMENTATION: Quality ID # 436: Final reports with documentation of one or more dose reduction techniques (e.g., Automated exposure control, adjustment of the mA and/or kV according to patient size, use of iterative reconstruction technique) copyright 2011 [employer]- All Rights Reserved Chest X-Ray 12/02/19 22:09 IMPRESSION: Stable chronic changes; no acute disease. copyright 2010 [employer]- All Rights Reserved Chest CT 12/03/19 06:16 IMPRESSION: Bilateral pneumonia. Assessment & Plan - Diagnosis (1) Sickle cell anemia with pain Is this a current diagnosis for this admission?: Yes Plan: We discussed weaning the Dilaudid today, but he would like to wait until tomorrow. No changes today. No indication for blood transfusion. Watch symptoms closely for evidence of cardiac compromise. - Time Time Spent with patient: Less than 15 minutes
[2019-12-07] MEDS: FOLIC ACID 1 MG TABLET PO SCH (09:19)
[2019-12-07] MEDS: DOCUSATE SODIUM 100 MG CAPSULE PO SCH ×2 (09:19→17:36)
[2019-12-07] MEDS: HYDROXYUREA 500 MG CAPSULE PO SCH (09:20)
[2019-12-07] MEDS: ENOXAPARIN SODIUM INJ 40 MG/0.4 ML DISP.SYRIN SUBCUT SCH (09:21)
[2019-12-07] MEDS: DOXYCYCLINE HYCLATE 100 MG TABLET PO SCH ×2 (09:21→21:45)
[2019-12-07] MEDS ORDERED: NEO/POLYMYX B SULF/DEXAMETH OPH SUSP 5 ML OU PRN (10:02)
--- NOTE | 2019-12-07 15:35 | PDOC PROGRESS REPORT ---
Subjective Progress Note for:: 12/07/19 Subjective:: Patient says he feels better. Encouraged him to drink more fluids to expedite his recovery. Reason For Visit: SICKLE CELL PAIN,PNEUMONIA Physical Exam Vital Signs: Temp Pulse Resp BP Pulse Ox 98.3 F 81 18 140/98 H 92 12/07/19 11:03 12/07/19 11:03 12/07/19 11:03 12/07/19 11:03 12/07/19 11:03 Intake & Output 12/06/19 12/07/19 12/08/19 06:59 06:59 06:59 Intake Total 3299 2614 1000 Output Total 2200 3400 Balance 1099 -786 1000 Weight 90.3 kg 95.1 kg General appearance: PRESENT: no acute distress, well-developed, well-nourished Head exam: PRESENT: atraumatic, normocephalic Eye exam: PRESENT: conjunctiva pink, EOMI, PERRLA. ABSENT: scleral icterus Ear exam: PRESENT: normal external ear exam Mouth exam: PRESENT: moist, tongue midline Neck exam: ABSENT: carotid bruit, JVD, lymphadenopathy, thyromegaly Respiratory exam: PRESENT: clear to auscultation anastasiya. ABSENT: rales, rhonchi, wheezes Cardiovascular exam: PRESENT: RRR. ABSENT: diastolic murmur, rubs, systolic murmur Pulses: PRESENT: normal dorsalis pedis pul Vascular exam: PRESENT: normal capillary refill GI/Abdominal exam: PRESENT: normal bowel sounds, soft. ABSENT: distended, guarding, mass, organolmegaly, rebound, tenderness Rectal exam: PRESENT: deferred Extremities exam: PRESENT: full ROM. ABSENT: calf tenderness, clubbing, pedal edema Neurological exam: PRESENT: alert, awake, oriented to person, oriented to place, oriented to time, oriented to situation, CN II-XII grossly intact. ABSENT: motor sensory deficit Psychiatric exam: PRESENT: appropriate affect, normal mood. ABSENT: homicidal ideation, suicidal ideation Skin exam: PRESENT: dry, intact, warm. ABSENT: cyanosis, rash Results Laboratory Results: 12/07/19 04:30 12/07/19 04:30 12/07/19 12/07/19 04:30 04:30 WBC 7.1 RBC 2.46 L Hgb 8.1 L Hct 22.8 L MCV 93 MCH 33.0 MCHC 35.6 RDW 21.6 H Plt Count 440 Seg Neutrophils % Not Reportable Sodium 137.4 Potassium 4.4 Chloride 99 Carbon Dioxide 31 H Anion Gap 7 BUN 8 Creatinine 0.64 Est GFR ( Amer) > 60 Glucose 145 H Calcium 8.8 Total Bilirubin 2.0 H AST 31 Alkaline Phosphatase 79 Total Protein 7.6 Albumin 3.9 12/03/19 12/03/19 12/03/19 04:05 04:05 11:25 Creatine Kinase 70 CK-MB (CK-2) < 0.22 Troponin I 0.015 < 0.012 Impressions: Abdomen/Pelvis CT 12/02/19 22:08 IMPRESSION: No acute abnormality within the abdomen or pelvis. Questionable intermediate density about the dependent aspect of the urinary bladder is most likely artifactual rather than related to luminal debris. Cholelithiasis. 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 TECHNICAL DOCUMENTATION: Quality ID # 436: Final reports with documentation of one or more dose reduction techniques (e.g., Automated exposure control, adjustment of the mA and/or kV according to patient size, use of iterative reconstruction technique) copyright 2010 [employer]- All Rights Reserved Chest X-Ray 12/02/19 22:09 IMPRESSION: Stable chronic changes; no acute disease. copyright 2010 [employer]- All Rights Reserved Chest CT 12/03/19 06:16 IMPRESSION: Bilateral pneumonia. Assessment and Plan - Diagnosis (1) Sickle cell anemia with pain Is this a current diagnosis for this admission?: Yes Plan: Patient is improving. Appreciate oncology input. The plan is to continue Dilaudid for 1 more day and hopefully discontinue in a.m. We will continue with IV hydration and encourage oral fluid intake. Hopefully patient will be able to go home in another day or 2 - Time Anticipated Discharge Disposition: Home, Self Care Anticipated Discharge Timeframe: within 24 hours
[2019-12-08] MEDS: NORMAL SALINE 1000 ML 1,000 ML IV PRN ×4 (01:45→23:45)
[2019-12-08] MEDS: HYDROMORPHONE HCL INJ/PF 2 MG/ML AMPULE IV PRN ×8 (02:47→21:36)
[2019-12-08] MEDS: DIPHENHYDRAMINE HCL 50 MG/ML VIAL IV PRN ×4 (02:47→17:56)
[2019-12-08] MEDS: METHADONE HCL 10 MG TABLET PO SCH ×4 (05:41→23:23)
--- NOTE | 2019-12-08 09:03 | PDOC PROGRESS REPORT ---
Subjective Progress Note for:: 12/08/19 Subjective:: Patient states that his pain has improved, but the rib pain and pleuritic pain is still the main concern. He is also concerned about his eye drops, as his usual has a pink cap and he is afraid to use anything else. ROS: No constipation. No rash. Reason For Visit: SICKLE CELL PAIN,PNEUMONIA Physical Exam Vital Signs: Temp Pulse Resp BP Pulse Ox 98.7 F 85 18 147/95 H 98 12/07/19 23:56 12/07/19 23:56 12/07/19 23:56 12/07/19 23:56 12/07/19 23:56 Intake & Output 12/07/19 12/08/19 12/09/19 06:59 06:59 06:59 Intake Total 2614 3900 Output Total 3400 2300 Balance -786 1600 Weight 95.1 kg 95.1 kg General appearance: PRESENT: no acute distress, well-developed, well-nourished Head exam: PRESENT: normocephalic Respiratory exam: PRESENT: unlabored Extremities exam: ABSENT: pedal edema Neurological exam: PRESENT: alert, awake Psychiatric exam: PRESENT: appropriate affect Skin exam: PRESENT: normal color Results Laboratory Results: 12/07/19 04:30 12/07/19 04:30 12/03/19 12/03/19 12/03/19 04:05 04:05 11:25 Creatine Kinase 70 CK-MB (CK-2) < 0.22 Troponin I 0.015 < 0.012 Impressions: Abdomen/Pelvis CT 12/02/19 22:08 IMPRESSION: No acute abnormality within the abdomen or pelvis. Questionable intermediate density about the dependent aspect of the urinary bladder is most likely artifactual rather than related to luminal debris. Cholelithiasis. 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 TECHNICAL DOCUMENTATION: Quality ID # 436: Final reports with documentation of one or more dose reduction techniques (e.g., Automated exposure control, adjustment of the mA and/or kV according to patient size, use of iterative reconstruction technique) copyright 2011 [employer]- All Rights Reserved Chest X-Ray 12/02/19 22:09 IMPRESSION: Stable chronic changes; no acute disease. copyright 2011 [employer]- All Rights Reserved Chest CT 12/03/19 06:16 IMPRESSION: Bilateral pneumonia. Assessment & Plan - Diagnosis (1) Sickle cell anemia with pain Is this a current diagnosis for this admission?: Yes Plan: I will start to wean the IV dilaudid and continue methadone at same dose. I have encouraged him to walk and to wear his oxygen. (2) Acute conjunctivitis, right eye Qualifiers: Acute conjunctivitis type: bacterial Qualified Code(s): H10.31 - Unspecified acute conjunctivitis, right eye Is this a current diagnosis for this admission?: Yes Plan: I have encouraged him to obtain the name of the eye drop that he has at home so that I can make sure he is getting the same thing here. - Time Time Spent with patient: 15-24 minutes
[2019-12-08] MEDS: DOCUSATE SODIUM 100 MG CAPSULE PO SCH ×2 (09:59→17:03)
[2019-12-08] MEDS: FOLIC ACID 1 MG TABLET PO SCH (09:59)
[2019-12-08] MEDS: HYDROXYUREA 500 MG CAPSULE PO SCH (09:59)
[2019-12-08] MEDS: DOXYCYCLINE HYCLATE 100 MG TABLET PO SCH ×2 (09:59→21:36)
[2019-12-08] MEDS: ENOXAPARIN SODIUM INJ 40 MG/0.4 ML DISP.SYRIN SUBCUT SCH ×2 (10:01→10:10)
--- NOTE | 2019-12-08 12:23 | PDOC PROGRESS REPORT ---
Subjective Progress Note for:: 12/08/19 Subjective:: Patient says he feels better. Encouraged him to drink more fluids to expedite his recovery. 12/07 Dilaudid dose decreased to 2 mg today. Patient still wants to wait till at least tomorrow before discontinuing his Dilaudid and he declines oral narcotics at this time however I have told him that we will likely will discontinue the Dilaudid in a.m. Reason For Visit: SICKLE CELL PAIN,PNEUMONIA Physical Exam Vital Signs: Temp Pulse Resp BP Pulse Ox 98.7 F 85 18 147/95 H 98 12/07/19 23:56 12/07/19 23:56 12/07/19 23:56 12/07/19 23:56 12/07/19 23:56 Intake & Output 12/07/19 12/08/19 12/09/19 06:59 06:59 06:59 Intake Total 2614 3900 1000 Output Total 3400 2300 Balance -786 1600 1000 Weight 95.1 kg 95.1 kg General appearance: PRESENT: no acute distress Head exam: PRESENT: atraumatic, normocephalic Eye exam: PRESENT: conjunctiva pink, EOMI, PERRLA. ABSENT: scleral icterus Ear exam: PRESENT: normal external ear exam Mouth exam: PRESENT: moist, tongue midline Neck exam: ABSENT: carotid bruit, JVD, lymphadenopathy, thyromegaly Respiratory exam: PRESENT: clear to auscultation anastasiya. ABSENT: rales, rhonchi, wheezes Cardiovascular exam: PRESENT: RRR. ABSENT: diastolic murmur, rubs, systolic murmur Pulses: PRESENT: normal dorsalis pedis pul Vascular exam: PRESENT: normal capillary refill GI/Abdominal exam: PRESENT: normal bowel sounds, soft. ABSENT: distended, guarding, mass, organolmegaly, rebound, tenderness Rectal exam: PRESENT: deferred Extremities exam: PRESENT: full ROM. ABSENT: calf tenderness, clubbing, pedal edema Neurological exam: PRESENT: alert, awake, oriented to person, oriented to place, oriented to time, oriented to situation, CN II-XII grossly intact. ABSENT: motor sensory deficit Psychiatric exam: PRESENT: appropriate affect, normal mood. ABSENT: homicidal ideation, suicidal ideation Skin exam: PRESENT: dry, intact, warm. ABSENT: cyanosis, rash Results Laboratory Results: 12/07/19 04:30 12/07/19 04:30 12/03/19 11:25 Blood Blood Culture - Final NO GROWTH IN 5 DAYS 12/03/19 12/03/19 12/03/19 04:05 04:05 11:25 Creatine Kinase 70 CK-MB (CK-2) < 0.22 Troponin I 0.015 < 0.012 Impressions: Abdomen/Pelvis CT 12/02/19 22:08 IMPRESSION: No acute abnormality within the abdomen or pelvis. Questionable intermediate density about the dependent aspect of the urinary bladder is most likely artifactual rather than related to luminal debris. Cholelithiasis. 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 TECHNICAL DOCUMENTATION: Quality ID # 436: Final reports with documentation of one or more dose reduction techniques (e.g., Automated exposure control, adjustment of the mA and/or kV according to patient size, use of iterative reconstruction technique) copyright 2011 [employer]- All Rights Reserved Chest X-Ray 12/02/19 22:09 IMPRESSION: Stable chronic changes; no acute disease. copyright 2011 [employer]- All Rights Reserved Chest CT 12/03/19 06:16 IMPRESSION: Bilateral pneumonia. Assessment and Plan - Diagnosis (1) Sickle cell anemia with pain Is this a current diagnosis for this admission?: Yes Plan: Patient is improving. Appreciate oncology input. The plan is to continue Dilaudid for 1 more day and hopefully discontinue in a.m. We will continue with IV hydration and encourage oral fluid intake. Hopefully patient will be able to go home in another day or 2 if his symptoms improve - Time Anticipated Discharge Disposition: Home, Self Care Anticipated Discharge Timeframe: within 24 hours
[2019-12-08] MEDS ORDERED: MOXIFLOXACIN HCL 0.5% OPH SOLN 3 ML OU ONE (15:30)
[2019-12-08] MEDS: MOXIFLOXACIN HCL 0.5% OPH SOLN 3 ML OU SCH (21:42)
[2019-12-08] MEDS ORDERED: VIGAMOX BTH_EYE SCH (22:00)
[2019-12-09] MEDS: DIPHENHYDRAMINE HCL 50 MG/ML VIAL IV PRN ×5 (00:35→20:15)
[2019-12-09] MEDS: HYDROMORPHONE HCL INJ/PF 2 MG/ML AMPULE IV PRN ×9 (00:35→23:22)
[2019-12-09] MEDS: METHADONE HCL 10 MG TABLET PO SCH ×4 (05:00→23:23)
[2019-12-09 05:30] LABS: HEMATOCRIT 24.4 % (37.9-51.0); HEMOGLOBIN 8.5 g/dL (13.5-17.0); MEAN CORPUSCULAR HEMOGLOBIN 32.8 pg (27.0-33.4); MEAN CORPUSCULAR HGB CONC 34.8 g/dL (32.0-36.0); MEAN CORPUSCULAR VOLUME 95 fl (80-97); PLATELET COUNT 430 10^3/uL (150-450); RED BLOOD COUNT 2.58 10^6/uL (4.35-5.55); RED CELL DISTRIBUTION WIDTH 22.3 % (11.5-14.0); WHITE BLOOD COUNT 5.9 10^3/uL (4.0-10.5)
[2019-12-09 05:46] LABS: ANION GAP 8 (5-19); BLOOD UREA NITROGEN 5 mg/dL (7-20); CALCIUM 8.8 mg/dL (8.4-10.2); CARBON DIOXIDE 30 mmol/L (22-30); CHLORIDE 101 mmol/L (98-107); GLUCOSE 129 mg/dL (75-110); POTASSIUM 4.1 mmol/L (3.6-5.0)
[2019-12-09 06:04] LABS: ABSOLUTE LYMPHOCYTES# (MANUAL) 1.7 10^3/uL (0.5-4.7); ABSOLUTE MONOCYTES # (MANUAL) 0.6 10^3/uL (0.1-1.4); BASOPHILS % (MANUAL) 3 % (0-2); EOSINOPHILS % (MANUAL) 2 % (0-6); LYMPHOCYTES % (MANUAL) 27 % (13-45); MONOCYTES % (MANUAL) 10 % (3-13); NUCLEATED RED BLOOD CELLS 1 /100 WBC (0); SEGMENTED NEUTROPHILS % (MAN) 56 % (42-78); TOTAL CELLS COUNTED 100
[2019-12-09 06:06] LABS: ANISOCYTOSIS 3+; POLYCHROMASIA 1+; SICKLE RED CELLS 1+
[2019-12-09 06:07] LABS: PLATELET COMMENT ADEQUATE; POIKILOCYTOSIS 1+; TARGET CELLS SLIGHT
[2019-12-09 06:09] LABS: OVALOCYTES SLIGHT
[2019-12-09] MEDS: NORMAL SALINE 1000 ML 1,000 ML IV PRN ×3 (07:49→22:19)
[2019-12-09] MEDS: FOLIC ACID 1 MG TABLET PO SCH (09:44)
[2019-12-09] MEDS: DOCUSATE SODIUM 100 MG CAPSULE PO SCH ×2 (09:44→18:09)
[2019-12-09] MEDS: ENOXAPARIN SODIUM INJ 40 MG/0.4 ML DISP.SYRIN SUBCUT SCH (09:45)
--- NOTE | 2019-12-09 10:05 | PDOC PROGRESS REPORT ---
Subjective Progress Note for:: 12/09/19 Subjective:: Patient states pain was much worse last night. Still in his left side. He is not sure why he is still having this much pain at this point. He is frustrated at lack of progress. He is also upset that pain meds were decreased yesterday, despite agreeing to this change yesterday. Reason For Visit: SICKLE CELL PAIN,PNEUMONIA Physical Exam Vital Signs: Temp Pulse Resp BP Pulse Ox 98.5 F 75 16 123/74 99 12/09/19 07:59 12/09/19 07:59 12/09/19 07:59 12/09/19 07:59 12/09/19 07:59 Intake & Output 12/08/19 12/09/19 12/10/19 06:59 06:59 06:59 Intake Total 3900 4920 Output Total 2300 3800 Balance 1600 1120 Weight 95.1 kg 95.1 kg General appearance: PRESENT: no acute distress, well-developed, well-nourished Head exam: PRESENT: normocephalic Eye exam: PRESENT: EOMI Respiratory exam: PRESENT: unlabored Cardiovascular exam: PRESENT: RRR Extremities exam: ABSENT: pedal edema Neurological exam: PRESENT: alert, awake Psychiatric exam: PRESENT: appropriate affect Skin exam: PRESENT: normal color Results Laboratory Results: 12/09/19 05:05 12/09/19 05:05 12/09/19 12/09/19 05:05 05:05 WBC 5.9 RBC 2.58 L Hgb 8.5 L Hct 24.4 L MCV 95 MCH 32.8 MCHC 34.8 RDW 22.3 H Plt Count 430 Seg Neutrophils % Not Reportable Sodium 139.4 Potassium 4.1 Chloride 101 Carbon Dioxide 30 Anion Gap 8 BUN 5 L Creatinine 0.58 Est GFR ( Amer) > 60 Glucose 129 H Calcium 8.8 12/03/19 13:30 Blood Blood Culture - Final NO GROWTH IN 5 DAYS 12/03/19 11:25 Blood Blood Culture - Final NO GROWTH IN 5 DAYS 12/03/19 12/03/19 12/03/19 04:05 04:05 11:25 Creatine Kinase 70 CK-MB (CK-2) < 0.22 Troponin I 0.015 < 0.012 Impressions: Abdomen/Pelvis CT 12/02/19 22:08 IMPRESSION: No acute abnormality within the abdomen or pelvis. Questionable intermediate density about the dependent aspect of the urinary bladder is most likely artifactual rather than related to luminal debris. Cholelithiasis. 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 TECHNICAL DOCUMENTATION: Quality ID # 436: Final reports with documentation of one or more dose reduction techniques (e.g., Automated exposure control, adjustment of the mA and/or kV according to patient size, use of iterative reconstruction technique) copyright 2011 [employer]- All Rights Reserved Chest X-Ray 12/02/19 22:09 IMPRESSION: Stable chronic changes; no acute disease. copyright 2010 [employer]- All Rights Reserved Chest CT 12/03/19 06:16 IMPRESSION: Bilateral pneumonia. Assessment & Plan - Diagnosis (1) Sickle cell anemia with pain Is this a current diagnosis for this admission?: Yes Plan: Will increase dilaudid again back to original dose. I have instructed the nurses to call me if he is still having significant pain. I'm not sure if CT or US or chest or abdomen is indicated at this point, but will consider if pain continues to worsen. (2) Acute conjunctivitis, right eye Qualifiers: Acute conjunctivitis type: bacterial Qualified Code(s): H10.31 - Unspecified acute conjunctivitis, right eye Is this a current diagnosis for this admission?: Yes Plan: We discussed the fact that his Moxifloxacin should only be used for a few days at a time and should not be a regular re-wetting type solution. Although I do not appreciate any conjunctivitis, he states that eye is painful and red. I will order the moxifloxacin instead of his current eye drop. - Time Time Spent with patient: 15-24 minutes
[2019-12-09] MEDS: HYDROXYUREA 500 MG CAPSULE PO SCH (12:10)
[2019-12-09] MEDS: DOXYCYCLINE HYCLATE 100 MG TABLET PO SCH ×2 (12:10→22:22)
[2019-12-09] MEDS: MOXIFLOXACIN HCL 0.5% OPH SOLN 3 ML OU SCH ×2 (12:48→22:24)
--- NOTE | 2019-12-09 18:37 | PDOC PROGRESS REPORT ---
Subjective Progress Note for:: 12/09/19 Subjective:: Patient says he feels better. Encouraged him to drink more fluids to expedite his recovery. 12/07 Dilaudid dose decreased to 2 mg today. Patient still wants to wait till at least tomorrow before discontinuing his Dilaudid and he declines oral narcotics at this time however I have told him that we will likely will discontinue the Dilaudid in a.m. 12/08 and still complaining of pain which is not relieved with the current analgesics he is on. He said he had a bad night due to the pain. He is now willing to have any oral analgesia added to his regimen at this time and wants to continue with his Dilaudid. Reason For Visit: SICKLE CELL PAIN,PNEUMONIA Physical Exam Vital Signs: Temp Pulse Resp BP Pulse Ox 98.2 F 81 16 132/76 H 98 12/09/19 15:01 12/09/19 15:01 12/09/19 15:01 12/09/19 15:01 12/09/19 15:01 Intake & Output 12/08/19 12/09/19 12/10/19 06:59 06:59 06:59 Intake Total 3900 4920 1000 Output Total 2300 3800 Balance 1600 1120 1000 Weight 95.1 kg 95.1 kg General appearance: PRESENT: no acute distress, well-developed, well-nourished Head exam: PRESENT: atraumatic, normocephalic Eye exam: PRESENT: conjunctiva pink, EOMI, PERRLA. ABSENT: scleral icterus Ear exam: PRESENT: normal external ear exam Mouth exam: PRESENT: moist, tongue midline Neck exam: ABSENT: carotid bruit, JVD, lymphadenopathy, thyromegaly Respiratory exam: PRESENT: clear to auscultation anastasiya. ABSENT: rales, rhonchi, wheezes Cardiovascular exam: PRESENT: RRR. ABSENT: diastolic murmur, rubs, systolic murmur Pulses: PRESENT: normal dorsalis pedis pul Vascular exam: PRESENT: normal capillary refill GI/Abdominal exam: PRESENT: normal bowel sounds, soft. ABSENT: distended, guarding, mass, organolmegaly, rebound, tenderness Rectal exam: PRESENT: deferred Extremities exam: PRESENT: full ROM. ABSENT: calf tenderness, clubbing, pedal edema Neurological exam: PRESENT: alert, awake, oriented to person, oriented to place, oriented to time, oriented to situation, CN II-XII grossly intact. ABSENT: motor sensory deficit Psychiatric exam: PRESENT: appropriate affect, normal mood. ABSENT: homicidal ideation, suicidal ideation Skin exam: PRESENT: dry, intact, warm. ABSENT: cyanosis, rash Results Laboratory Results: 12/09/19 05:05 12/09/19 05:05 12/09/19 12/09/19 05:05 05:05 WBC 5.9 RBC 2.58 L Hgb 8.5 L Hct 24.4 L MCV 95 MCH 32.8 MCHC 34.8 RDW 22.3 H Plt Count 430 Seg Neutrophils % Not Reportable Sodium 139.4 Potassium 4.1 Chloride 101 Carbon Dioxide 30 Anion Gap 8 BUN 5 L Creatinine 0.58 Est GFR ( Amer) > 60 Glucose 129 H Calcium 8.8 12/03/19 12/03/19 12/03/19 04:05 04:05 11:25 Creatine Kinase 70 CK-MB (CK-2) < 0.22 Troponin I 0.015 < 0.012 Impressions: Abdomen/Pelvis CT 12/02/19 22:08 IMPRESSION: No acute abnormality within the abdomen or pelvis. Questionable intermediate density about the dependent aspect of the urinary bladder is most likely artifactual rather than related to luminal debris. Cholelithiasis. 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 TECHNICAL DOCUMENTATION: Quality ID # 436: Final reports with documentation of one or more dose reduction techniques (e.g., Automated exposure control, adjustment of the mA and/or kV according to patient size, use of iterative reconstruction technique) copyright 2011 [employer]- All Rights Reserved Chest X-Ray 12/02/19 22:09 IMPRESSION: Stable chronic changes; no acute disease. copyright 2010 [employer]- All Rights Reserved Chest CT 12/03/19 06:16 IMPRESSION: Bilateral pneumonia. Assessment and Plan - Diagnosis (1) Sickle cell anemia with pain Is this a current diagnosis for this admission?: Yes Plan: Patient is improving. Appreciate oncology input. The plan is to continue Dilaudid for 1 more day and hopefully discontinue in a.m. We will continue with IV hydration and encourage oral fluid intake. Hopefully patient will be able to go home in another day or 2 if his symptoms improve 12/08 patient continues to complain of pain. He is also not happy with his pain regimen. His hemoglobin is relatively stable. I have increased his IV fluid and have encouraged fluid orally. At this time I guess we will just have to wait for patient's pain to be controlled prior to discharge - Time Time Spent with patient: 15-24 minutes Medications reviewed and adjusted accordingly: Yes Anticipated Discharge Disposition: Home, Self Care Anticipated Discharge Timeframe: within 48 hours - Inpatient Certification Based on my medical assessment, after consideration of the patient's comorbidities, presenting symptoms, or acuity I expect that the services needed warrant INPATIENT care.: Yes Medical Necessity: Need For IV Fluids, Need for Pain Control
[2019-12-10] MEDS: DIPHENHYDRAMINE HCL 50 MG/ML VIAL IV PRN ×6 (01:22→23:47)
[2019-12-10] MEDS: HYDROMORPHONE HCL INJ/PF 2 MG/ML AMPULE IV PRN ×11 (01:22→23:47)
[2019-12-10] MEDS: NORMAL SALINE 1000 ML 1,000 ML IV PRN ×3 (05:40→19:40)
[2019-12-10] MEDS: METHADONE HCL 10 MG TABLET PO SCH ×4 (05:49→23:47)
[2019-12-10] MEDS: HYDROXYUREA 500 MG CAPSULE PO SCH (09:53)
[2019-12-10] MEDS: ENOXAPARIN SODIUM INJ 40 MG/0.4 ML DISP.SYRIN SUBCUT SCH (09:54)
[2019-12-10] MEDS: FOLIC ACID 1 MG TABLET PO SCH (09:54)
[2019-12-10] MEDS: DOCUSATE SODIUM 100 MG CAPSULE PO SCH ×2 (09:54→17:23)
[2019-12-10] MEDS: MOXIFLOXACIN HCL 0.5% OPH SOLN 3 ML OU SCH ×2 (10:34→21:43)
--- NOTE | 2019-12-10 23:07 | PDOC PROGRESS REPORT ---
Subjective Progress Note for:: 12/10/19 Subjective:: The patient was seen and examined at bedside. He is still in pain however this is much less compared to yesterday. Reports fair appetite no fever no nausea vomiting. Expressed frustration that we he cannot receive tobramycin eyedrops Reason For Visit: SICKLE CELL PAIN,PNEUMONIA Physical Exam Vital Signs: Temp Pulse Resp BP Pulse Ox 98.4 F 86 16 135/88 H 96 12/10/19 19:52 12/10/19 19:52 12/10/19 19:52 12/10/19 19:52 12/10/19 19:52 Intake & Output 12/09/19 12/10/19 12/11/19 06:59 06:59 06:59 Intake Total 4920 3000 2000 Output Total 3800 800 Balance 1120 2200 2000 Weight 95.1 kg 92.4 kg General appearance: PRESENT: no acute distress Head exam: PRESENT: atraumatic, normocephalic Eye exam: PRESENT: conjunctival injection, EOMI, PERRLA Mouth exam: PRESENT: moist Neck exam: PRESENT: full ROM. ABSENT: JVD Respiratory exam: PRESENT: clear to auscultation anastasiya, symmetrical. ABSENT: crackles, rales, rhonchi, wheezes Cardiovascular exam: PRESENT: RRR, +S1, +S2 - normal. ABSENT: gallop, systolic murmur Pulses: PRESENT: +2 pedal pulses bilateral GI/Abdominal exam: PRESENT: normal bowel sounds, soft, tenderness. ABSENT: guarding, rebound Extremities exam: PRESENT: other - multiple tender points Neurological exam: PRESENT: alert, awake, oriented to person, oriented to place, oriented to time Psychiatric exam: PRESENT: flat affect Results Laboratory Results: 12/09/19 05:05 12/09/19 05:05 12/03/19 12/03/19 12/03/19 04:05 04:05 11:25 Creatine Kinase 70 CK-MB (CK-2) < 0.22 Troponin I 0.015 < 0.012 Impressions: Abdomen/Pelvis CT 12/02/19 22:08 IMPRESSION: No acute abnormality within the abdomen or pelvis. Questionable intermediate density about the dependent aspect of the urinary bladder is most likely artifactual rather than related to luminal debris. Cholelithiasis. 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 TECHNICAL DOCUMENTATION: Quality ID # 436: Final reports with documentation of one or more dose reduction techniques (e.g., Automated exposure control, adjustment of the mA and/or kV according to patient size, use of iterative reconstruction technique) copyright 2010 [employer]- All Rights Reserved Chest X-Ray 12/02/19 22:09 IMPRESSION: Stable chronic changes; no acute disease. copyright 2010 [employer]- All Rights Reserved Chest CT 12/03/19 06:16 IMPRESSION: Bilateral pneumonia. Assessment and Plan - Diagnosis (1) Sickle cell anemia with pain Is this a current diagnosis for this admission?: Yes Plan: Patient is improving. -continue Dilaudid 3 mg q2 - We will continue with IV hydration and encourage oral fluid intake. - per patient usual pain medications is oxycodone 10 mg q6 and methadon 5 mg - heme following per notes no need for chest CT for acute chest syndrome - continue incentive spirometry, hydration (2) Conjunctivitis, both eyes Qualifiers: Conjunctivitis type: acute Acute conjunctivitis type: unspecified Qualified Code(s): H10.33 - Unspecified acute conjunctivitis, bilateral Is this a current diagnosis for this admission?: Yes Plan: -Patient uses tobramycin at home. Tobramycin not on formulary confirmed by nurse from pharmacy -Patient refuses to take prescribed replacement for tobramycin while inpatient -Patient was asked to bring his tobramycin eyedrops from home by his relatives to be used in patient - Time Time Spent with patient: 15-24 minutes Anticipated Discharge Disposition: Home, Self Care Anticipated Discharge Timeframe: to be determined - Inpatient Certification Medical Necessity: Need for Pain Control
[2019-12-11] MEDS: NORMAL SALINE 1000 ML 1,000 ML IV PRN ×4 (02:22→23:24)
[2019-12-11] MEDS: HYDROMORPHONE HCL INJ/PF 2 MG/ML AMPULE IV PRN ×10 (02:22→23:19)
[2019-12-11] MEDS: DIPHENHYDRAMINE HCL 50 MG/ML VIAL IV PRN ×5 (04:31→23:20)
[2019-12-11] MEDS: METHADONE HCL 10 MG TABLET PO SCH ×3 (06:29→18:43)
[2019-12-11 07:51] LABS: ALBUMIN 3.7 g/dL (3.5-5.0); ALKALINE PHOSPHATASE 108 U/L (38-126); ANION GAP 8 (5-19); ASPARTATE AMINO TRANSFERASE 41 U/L (17-59); BILIRUBIN,TOTAL 1.1 mg/dL (0.2-1.3); BLOOD UREA NITROGEN 5 mg/dL (7-20); CALCIUM 8.6 mg/dL (8.4-10.2); CARBON DIOXIDE 29 mmol/L (22-30); CHLORIDE 103 mmol/L (98-107); GLUCOSE 99 mg/dL (75-110); POTASSIUM 4.4 mmol/L (3.6-5.0); TOTAL PROTEIN 7.5 g/dL (6.3-8.2)
--- NOTE | 2019-12-11 09:08 | PDOC PROGRESS REPORT ---
Subjective Progress Note for:: 12/11/19 Subjective:: Patient states that his pain is finally getting some better. He is still complaining about his eye. Unable to get the eye drops they he requested, as they are not available on formulary. I told him that he may take his own if someone can bring them from home. He does not understand why he was able to get them last visit, but I explained that the specific name of eye drops that he requested was not available here in the hospital. He has no other compalints t kamlesh and is NOT willing to make any changes to his pain medications at this time. Reason For Visit: SICKLE CELL PAIN,PNEUMONIA Physical Exam Vital Signs: Temp Pulse Resp BP Pulse Ox 98.4 F 65 18 123/85 98 12/11/19 07:12 12/11/19 07:12 12/11/19 07:12 12/11/19 07:12 12/11/19 07:12 Intake & Output 12/10/19 12/11/19 12/12/19 06:59 06:59 06:59 Intake Total 3000 3000 965 Output Total 800 1750 Balance 2200 1250 965 Weight 92.4 kg 92.9 kg General appearance: PRESENT: no acute distress, well-developed, well-nourished Head exam: PRESENT: normocephalic Eye exam: PRESENT: EOMI Respiratory exam: PRESENT: unlabored Extremities exam: ABSENT: pedal edema Neurological exam: PRESENT: alert, awake Psychiatric exam: PRESENT: appropriate affect Skin exam: PRESENT: normal color Results Laboratory Results: 12/09/19 05:05 12/11/19 07:03 12/11/19 07:03 Sodium 140.4 Potassium 4.4 Chloride 103 Carbon Dioxide 29 Anion Gap 8 BUN 5 L Creatinine 0.55 Est GFR ( Amer) > 60 Glucose 99 Calcium 8.6 Total Bilirubin 1.1 AST 41 Alkaline Phosphatase 108 Total Protein 7.5 Albumin 3.7 12/03/19 12/03/19 12/03/19 04:05 04:05 11:25 Creatine Kinase 70 CK-MB (CK-2) < 0.22 Troponin I 0.015 < 0.012 Impressions: Abdomen/Pelvis CT 12/02/19 22:08 IMPRESSION: No acute abnormality within the abdomen or pelvis. Questionable intermediate density about the dependent aspect of the urinary bladder is most likely artifactual rather than related to luminal debris. Cholelithiasis. 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 TECHNICAL DOCUMENTATION: Quality ID # 436: Final reports with documentation of one or more dose reduction techniques (e.g., Automated exposure control, adjustment of the mA and/or kV according to patient size, use of iterative reconstruction technique) copyright 2011 [employer]- All Rights Reserved Chest X-Ray 12/02/19 22:09 IMPRESSION: Stable chronic changes; no acute disease. copyright 2011 [employer]- All Rights Reserved Chest CT 12/03/19 06:16 IMPRESSION: Bilateral pneumonia. Assessment & Plan - Diagnosis (1) Sickle cell anemia with pain Is this a current diagnosis for this admission?: Yes Plan: Continue fluids, Oxygen and current pain medications without any changes today. Hope to wean dilaudid tomorrow, if he agrees. (2) Acute conjunctivitis, right eye Qualifiers: Acute conjunctivitis type: bacterial Qualified Code(s): H10.31 - Unspecified acute conjunctivitis, right eye Is this a current diagnosis for this admission?: Yes Plan: He will continue to try to get his drops from home. - Time Time Spent with patient: Less than 15 minutes
[2019-12-11] MEDS: HYDROXYUREA 500 MG CAPSULE PO SCH (09:26)
[2019-12-11] MEDS: DOCUSATE SODIUM 100 MG CAPSULE PO SCH ×2 (09:26→18:44)
[2019-12-11] MEDS: FOLIC ACID 1 MG TABLET PO SCH (09:26)
[2019-12-11] MEDS: ENOXAPARIN SODIUM INJ 40 MG/0.4 ML DISP.SYRIN SUBCUT SCH ×2 (09:27→09:50)
[2019-12-11] MEDS: MOXIFLOXACIN HCL 0.5% OPH SOLN 3 ML OU SCH (09:27)
[2019-12-11] MEDS: TOBRAMYCIN SULFATE/DEXAMETH OPH SUSP 2.5 ML OU SCH (18:45)
--- NOTE | 2019-12-11 22:23 | PDOC PROGRESS REPORT ---
Subjective Progress Note for:: 12/11/19 Subjective:: Patient was seen and examined at bedside reports improvement of his pain symptoms however still not ready to transition to oral pain medications. Afebrile Reason For Visit: SICKLE CELL PAIN,PNEUMONIA Physical Exam Vital Signs: Temp Pulse Resp BP Pulse Ox 98.3 F 81 16 133/92 H 95 12/11/19 19:21 12/11/19 19:21 12/11/19 19:21 12/11/19 19:21 12/11/19 19:21 Intake & Output 12/10/19 12/11/19 12/12/19 06:59 06:59 06:59 Intake Total 3000 3000 1965 Output Total 800 1750 Balance 2200 1250 1965 Weight 92.4 kg 92.9 kg General appearance: PRESENT: no acute distress, cooperative Head exam: PRESENT: atraumatic, normocephalic Eye exam: PRESENT: conjunctival injection, EOMI, periorbital swelling - mild, PERRLA Mouth exam: PRESENT: moist Neck exam: PRESENT: full ROM Respiratory exam: PRESENT: clear to auscultation anastasiya, unlabored Cardiovascular exam: PRESENT: RRR, +S1, +S2. ABSENT: gallop, systolic murmur Pulses: PRESENT: +2 pedal pulses bilateral GI/Abdominal exam: PRESENT: normal bowel sounds, other. ABSENT: rebound, tenderness Extremities exam: PRESENT: other - multiple tender points Musculoskeletal exam: PRESENT: full ROM, other - multiple tender points Neurological exam: PRESENT: alert, awake, oriented to person, oriented to place, oriented to time Psychiatric exam: PRESENT: flat affect Results Laboratory Results: 12/09/19 05:05 12/11/19 07:03 12/11/19 07:03 Sodium 140.4 Potassium 4.4 Chloride 103 Carbon Dioxide 29 Anion Gap 8 BUN 5 L Creatinine 0.55 Est GFR ( Amer) > 60 Glucose 99 Calcium 8.6 Total Bilirubin 1.1 AST 41 Alkaline Phosphatase 108 Total Protein 7.5 Albumin 3.7 12/03/19 12/03/19 12/03/19 04:05 04:05 11:25 Creatine Kinase 70 CK-MB (CK-2) < 0.22 Troponin I 0.015 < 0.012 Impressions: Abdomen/Pelvis CT 12/02/19 22:08 IMPRESSION: No acute abnormality within the abdomen or pelvis. Questionable intermediate density about the dependent aspect of the urinary bladder is most likely artifactual rather than related to luminal debris. Cholelithiasis. 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 TECHNICAL DOCUMENTATION: Quality ID # [id number]: Final reports with documentation of one or more dose reduction techniques (e.g., Automated exposure control, adjustment of the mA and/or kV according to patient size, use of iterative reconstruction technique) copyright 2010 [employer]- All Rights Reserved Chest X-Ray 12/02/19 22:09 IMPRESSION: Stable chronic changes; no acute disease. copyright 2010 [employer]- All Rights Reserved Chest CT 12/03/19 06:16 IMPRESSION: Bilateral pneumonia. Assessment and Plan - Diagnosis (1) Sickle cell anemia with pain Is this a current diagnosis for this admission?: Yes Plan: Patient is improving. -continue Dilaudid 3 mg q2 - We will continue with IV hydration and encourage oral fluid intake. - per patient usual pain medications is oxycodone 10 mg q6 and methadon 5 mg - continue incentive spirometry, hydration (2) Conjunctivitis, both eyes Qualifiers: Conjunctivitis type: acute Acute conjunctivitis type: unspecified Qualified Code(s): H10.33 - Unspecified acute conjunctivitis, bilateral Is this a current diagnosis for this admission?: Yes Plan: -Patient uses tobramycin at home. Tobramycin not on formulary confirmed by nurse from pharmacy -Patient refuses to take prescribed replacement for tobramycin while inpatient -tobradex resumed, in formulary - Time Time Spent with patient: 15-24 minutes Anticipated Discharge Disposition: Home, Self Care Anticipated Discharge Timeframe: to be determined - Inpatient Certification Medical Necessity: Need for Pain Control
[2019-12-12] MEDS: TOBRAMYCIN SULFATE/DEXAMETH OPH SUSP 2.5 ML OU SCH ×4 (00:36→17:25)
[2019-12-12] MEDS: METHADONE HCL 10 MG TABLET PO SCH ×4 (00:37→17:26)
[2019-12-12] MEDS: HYDROMORPHONE HCL INJ/PF 2 MG/ML AMPULE IV PRN ×9 (01:55→22:57)
[2019-12-12] MEDS: DIPHENHYDRAMINE HCL 50 MG/ML VIAL IV PRN ×5 (03:58→22:57)
[2019-12-12] MEDS: ENOXAPARIN SODIUM INJ 40 MG/0.4 ML DISP.SYRIN SUBCUT SCH (11:15)
[2019-12-12] MEDS: DOCUSATE SODIUM 100 MG CAPSULE PO SCH ×2 (11:15→17:25)
[2019-12-12] MEDS: HYDROXYUREA 500 MG CAPSULE PO SCH (11:25)
[2019-12-12] MEDS: FOLIC ACID 1 MG TABLET PO SCH (11:25)
[2019-12-12] MEDS: NORMAL SALINE 1000 ML 1,000 ML IV PRN ×2 (11:30→17:27)
--- NOTE | 2019-12-12 11:59 | PDOC PROGRESS REPORT ---
Subjective Progress Note for:: 12/12/19 Subjective:: The patient seen and examined at bedside. Pain is much better controlled today however he still is not ready to be transitioned to his oral pain medications. Denies any shortness of breath chest pain cough or fever, appetite good. Reason For Visit: SICKLE CELL PAIN,PNEUMONIA Physical Exam Vital Signs: Temp Pulse Resp BP Pulse Ox 98.2 F 72 16 121/78 95 12/12/19 10:00 12/12/19 07:27 12/12/19 07:27 12/12/19 07:27 12/12/19 07:27 Intake & Output 12/11/19 12/12/19 12/13/19 06:59 06:59 06:59 Intake Total 3000 5075 Output Total 1750 1560 Balance 1250 3515 Weight 92.9 kg 92.9 kg General appearance: PRESENT: no acute distress, cooperative Eye exam: PRESENT: EOMI, periorbital swelling - Mild swelling, PERRLA Mouth exam: PRESENT: moist Neck exam: PRESENT: full ROM Respiratory exam: PRESENT: clear to auscultation anastasiya, symmetrical, unlabored. ABSENT: crackles Cardiovascular exam: PRESENT: RRR, +S1, +S2 Pulses: PRESENT: normal carotid pulses GI/Abdominal exam: PRESENT: normal bowel sounds, soft. ABSENT: rebound, tenderness Extremities exam: PRESENT: full ROM Neurological exam: PRESENT: alert, awake, oriented to person, oriented to place, oriented to time Psychiatric exam: PRESENT: normal mood Results Laboratory Results: 12/09/19 05:05 12/11/19 07:03 12/03/19 12/03/19 12/03/19 04:05 04:05 11:25 Creatine Kinase 70 CK-MB (CK-2) < 0.22 Troponin I 0.015 < 0.012 Impressions: Abdomen/Pelvis CT 12/02/19 22:08 IMPRESSION: No acute abnormality within the abdomen or pelvis. Questionable intermediate density about the dependent aspect of the urinary bladder is most likely artifactual rather than related to luminal debris. Cholelithiasis. 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 TECHNICAL DOCUMENTATION: Quality ID # [id number]: Final reports with documentation of one or more dose reduction techniques (e.g., Automated exposure control, adjustment of the mA and/or kV according to patient size, use of iterative reconstruction technique) copyright 2010 [employer]- All Rights Reserved Chest X-Ray 12/02/19 22:09 IMPRESSION: Stable chronic changes; no acute disease. copyright 2010 [employer]- All Rights Reserved Chest CT 12/03/19 06:16 IMPRESSION: Bilateral pneumonia. Assessment and Plan - Diagnosis (1) Sickle cell anemia with pain Is this a current diagnosis for this admission?: Yes Plan: Patient is improving. -continue Dilaudid 3 mg q2 - We will continue with IV hydration and encourage oral fluid intake. - per patient usual pain medications is oxycodone 10 mg q6 and methadon 5 mg - continue incentive spirometry, hydration -Rusty will be able to transition him to his oral medications by tomorrow and possibly discharge -Heme following (2) Conjunctivitis, both eyes Qualifiers: Conjunctivitis type: acute Acute conjunctivitis type: unspecified Qualified Code(s): H10.33 - Unspecified acute conjunctivitis, bilateral Is this a current diagnosis for this admission?: Yes Plan: -Patient uses tobramycin at home. Tobramycin not on formulary confirmed by nurse from pharmacy -Patient refuses to take prescribed replacement for tobramycin while inpatient -tobradex resumed, in formulary - Time Time Spent with patient: 15-24 minutes Medications reviewed and adjusted accordingly: Yes Anticipated Discharge Disposition: Home, Self Care Anticipated Discharge Timeframe: within 48 hours - Inpatient Certification I certify that my determination is in accordance with my understanding of Medicare's requirements for reasonable and necessary INPATIENT services [42 CFR 412.3e].: Yes Medical Necessity: Need for Pain Control
--- NOTE | 2019-12-12 16:56 | PDOC PROGRESS REPORT ---
Subjective Progress Note for:: 12/12/19 Subjective:: Patient states pain is much better. He would like to consider discharge tomorrow morning. No new complaints today. Reason For Visit: SICKLE CELL PAIN,PNEUMONIA Physical Exam Vital Signs: Temp Pulse Resp BP Pulse Ox 98.3 F 84 20 120/76 98 12/12/19 16:00 12/12/19 16:00 12/12/19 16:00 12/12/19 16:00 12/12/19 16:00 Intake & Output 12/11/19 12/12/19 12/13/19 06:59 06:59 06:59 Intake Total 3000 5075 732 Output Total 1750 1560 1400 Balance 1250 3515 -668 Weight 92.9 kg 92.9 kg General appearance: PRESENT: no acute distress, well-developed, well-nourished Head exam: PRESENT: normocephalic Eye exam: PRESENT: EOMI Respiratory exam: PRESENT: unlabored Extremities exam: ABSENT: pedal edema Neurological exam: PRESENT: alert, awake Psychiatric exam: PRESENT: appropriate affect Skin exam: PRESENT: normal color Results Laboratory Results: 12/09/19 05:05 12/11/19 07:03 12/03/19 12/03/19 12/03/19 04:05 04:05 11:25 Creatine Kinase 70 CK-MB (CK-2) < 0.22 Troponin I 0.015 < 0.012 Impressions: Abdomen/Pelvis CT 12/02/19 22:08 IMPRESSION: No acute abnormality within the abdomen or pelvis. Questionable intermediate density about the dependent aspect of the urinary bladder is most likely artifactual rather than related to luminal debris. Cholelithiasis. 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 TECHNICAL DOCUMENTATION: Quality ID # 436: Final reports with documentation of one or more dose reduction techniques (e.g., Automated exposure control, adjustment of the mA and/or kV according to patient size, use of iterative reconstruction technique) copyright 2011 [employer]- All Rights Reserved Chest X-Ray 12/02/19 22:09 IMPRESSION: Stable chronic changes; no acute disease. copyright 2010 [employer]- All Rights Reserved Chest CT 12/03/19 06:16 IMPRESSION: Bilateral pneumonia. Assessment & Plan - Diagnosis (1) Sickle cell anemia with pain Is this a current diagnosis for this admission?: Yes Plan: I will decrease his dilaudid by 1 mg to slowly wean this in preparation for discharge tomorrow. If still feeling well, then OK for discharge from my standpoint. His blood work has remained stable. No further lab draws requested . (2) Acute conjunctivitis, right eye Qualifiers: Acute conjunctivitis type: bacterial Qualified Code(s): H10.31 - Unspecified acute conjunctivitis, right eye Is this a current diagnosis for this admission?: Yes - Time Time Spent with patient: 15-24 minutes - Plan Summary Plan Summary: He will follow-up in the office within the next 2-4 weeks. I will arrange for all narcotics on discharge, so Hospitalists do not need to write any Rx. He has narcotic contract with our office.
[2019-12-13] MEDS: HYDROMORPHONE HCL INJ/PF 2 MG/ML AMPULE IV PRN ×9 (01:06→20:41)
[2019-12-13] MEDS: METHADONE HCL 10 MG TABLET PO SCH ×5 (01:11→23:18)
[2019-12-13] MEDS: TOBRAMYCIN SULFATE/DEXAMETH OPH SUSP 2.5 ML OU SCH ×5 (01:12→23:19)
[2019-12-13] MEDS: DIPHENHYDRAMINE HCL 50 MG/ML VIAL IV PRN ×5 (03:26→23:19)
[2019-12-13] MEDS: NORMAL SALINE 1000 ML 1,000 ML IV PRN ×3 (09:00→22:20)
[2019-12-13] MEDS: DOCUSATE SODIUM 100 MG CAPSULE PO SCH ×2 (10:58→18:00)
[2019-12-13] MEDS: HYDROXYUREA 500 MG CAPSULE PO SCH (10:58)
[2019-12-13] MEDS: FOLIC ACID 1 MG TABLET PO SCH (10:58)
--- NOTE | 2019-12-13 11:01 | PDOC PROGRESS REPORT ---
Subjective Progress Note for:: 12/13/19 Subjective:: Patient was seen and examined at bedside. He reports better pain control but is still not ready to transition into oral medications. He denies any fever cough chest pain shortness of breath. Appetite good Reason For Visit: SICKLE CELL PAIN,PNEUMONIA Physical Exam Vital Signs: Temp Pulse Resp BP Pulse Ox 98.2 F 74 17 131/90 H 98 12/13/19 07:27 12/13/19 07:27 12/13/19 07:27 12/13/19 07:27 12/13/19 07:27 Intake & Output 12/12/19 12/13/19 12/14/19 06:59 06:59 06:59 Intake Total 5075 4105 Output Total 1560 4725 Balance 3515 -620 Weight 92.9 kg 92.7 kg General appearance: PRESENT: no acute distress Head exam: PRESENT: atraumatic, normocephalic Eye exam: PRESENT: EOMI, periorbital swelling, PERRLA Mouth exam: PRESENT: moist Neck exam: PRESENT: full ROM. ABSENT: JVD Respiratory exam: PRESENT: chest wall tenderness, clear to auscultation anastasiya, symmetrical, unlabored. ABSENT: rhonchi, wheezes Cardiovascular exam: PRESENT: RRR, +S1, +S2 GI/Abdominal exam: PRESENT: normal bowel sounds. ABSENT: guarding, rebound, soft Rectal exam: PRESENT: deferred Gentrourinary exam: ABSENT: lesions, scrotal swelling Extremities exam: PRESENT: clubbing, full ROM. ABSENT: +2 edema Musculoskeletal exam: PRESENT: full ROM Neurological exam: PRESENT: alert, awake, oriented to person, oriented to place, oriented to time Psychiatric exam: PRESENT: normal mood Results Laboratory Results: 12/09/19 05:05 12/11/19 07:03 12/03/19 12/03/19 12/03/19 04:05 04:05 11:25 Creatine Kinase 70 CK-MB (CK-2) < 0.22 Troponin I 0.015 < 0.012 Impressions: Abdomen/Pelvis CT 12/02/19 22:08 IMPRESSION: No acute abnormality within the abdomen or pelvis. Questionable intermediate density about the dependent aspect of the urinary bladder is most likely artifactual rather than related to luminal debris. Cholelithiasis. 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 TECHNICAL DOCUMENTATION: Quality ID # 436: Final reports with documentation of one or more dose reduction techniques (e.g., Automated exposure control, adjustment of the mA and/or kV according to patient size, use of iterative reconstruction technique) copyright 2010 [employer]- All Rights Reserved Chest X-Ray 12/02/19 22:09 IMPRESSION: Stable chronic changes; no acute disease. copyright 2010 [employer]- All Rights Reserved Chest CT 12/03/19 06:16 IMPRESSION: Bilateral pneumonia. Assessment and Plan - Diagnosis (1) Sickle cell anemia with pain Is this a current diagnosis for this admission?: Yes Plan: Patient is improving. - Dilaudid decreased to 2 mg q2 - We will continue with IV hydration and encourage oral fluid intake. - per patient usual pain medications is oxycodone 10 mg q6 and methadon 5 mg - continue incentive spirometry, hydration -Plan will be able to transition him to his oral medications by tomorrow and possibly discharge -Heme following (2) Conjunctivitis, both eyes Qualifiers: Conjunctivitis type: acute Acute conjunctivitis type: unspecified Qualified Code(s): H10.33 - Unspecified acute conjunctivitis, bilateral Is this a current diagnosis for this admission?: Yes Plan: -Patient uses tobramycin at home. -tobradex resumed, in formulary - Time Time Spent with patient: Less than 15 minutes Medications reviewed and adjusted accordingly: Yes Anticipated Discharge Disposition: Home, Self Care Anticipated Discharge Timeframe: within 48 hours - Inpatient Certification Medical Necessity: Need for IV Antibiotics
[2019-12-13] MEDS: ENOXAPARIN SODIUM INJ 40 MG/0.4 ML DISP.SYRIN SUBCUT SCH (11:04)
[2019-12-14] MEDS: HYDROMORPHONE HCL INJ/PF 2 MG/ML AMPULE IV PRN ×6 (01:41→14:19)
[2019-12-14] MEDS: DIPHENHYDRAMINE HCL 50 MG/ML VIAL IV PRN ×3 (04:27→14:20)
[2019-12-14] MEDS: METHADONE HCL 10 MG TABLET PO SCH ×2 (05:15→12:01)
[2019-12-14] MEDS: NORMAL SALINE 1000 ML 1,000 ML IV PRN (05:16)
[2019-12-14] MEDS: TOBRAMYCIN SULFATE/DEXAMETH OPH SUSP 2.5 ML OU SCH ×2 (05:18→11:56)
--- NOTE | 2019-12-14 06:41 | PDOC PROGRESS REPORT ---
Subjective Progress Note for:: 12/14/19 Subjective:: Patient was seen and examined at bedside. Pain is much better. No chest pain no shortness of breath no nausea or vomiting appetite good. Reason For Visit: SICKLE CELL PAIN,PNEUMONIA Physical Exam Vital Signs: Temp Pulse Resp BP Pulse Ox 98.3 F 78 17 126/80 H 95 12/13/19 23:47 12/13/19 23:47 12/13/19 23:47 12/13/19 23:47 12/13/19 23:47 Intake & Output 12/12/19 12/13/19 12/14/19 06:59 06:59 06:59 Intake Total 5075 4105 3150 Output Total 1560 6725 2650 Balance 3515 -501 500 Weight 92.9 kg 92.7 kg 92.7 kg General appearance: PRESENT: no acute distress, cooperative Head exam: PRESENT: atraumatic, normocephalic Eye exam: PRESENT: EOMI, PERRLA Mouth exam: PRESENT: moist Neck exam: ABSENT: carotid bruit, JVD Respiratory exam: PRESENT: clear to auscultation anastasiya, symmetrical, unlabored Cardiovascular exam: PRESENT: RRR, +S1, +S2 Pulses: PRESENT: normal carotid pulses Vascular exam: PRESENT: pallor GI/Abdominal exam: PRESENT: normal bowel sounds, soft. ABSENT: tenderness Rectal exam: PRESENT: deferred Extremities exam: PRESENT: full ROM Musculoskeletal exam: PRESENT: ambulatory, full ROM Neurological exam: PRESENT: normal gait Results Laboratory Results: 12/09/19 05:05 12/11/19 07:03 12/03/19 12/03/19 12/03/19 04:05 04:05 11:25 Creatine Kinase 70 CK-MB (CK-2) < 0.22 Troponin I 0.015 < 0.012 Impressions: Abdomen/Pelvis CT 12/02/19 22:08 IMPRESSION: No acute abnormality within the abdomen or pelvis. Questionable intermediate density about the dependent aspect of the urinary bladder is most likely artifactual rather than related to luminal debris. Cholelithiasis. 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 TECHNICAL DOCUMENTATION: Quality ID # 436: Final reports with documentation of one or more dose reduction techniques (e.g., Automated exposure control, adjustment of the mA and/or kV according to patient size, use of iterative reconstruction technique) copyright 2010 [employer]- All Rights Reserved Chest X-Ray 12/02/19 22:09 IMPRESSION: Stable chronic changes; no acute disease. copyright 2010 [employer]- All Rights Reserved Chest CT 12/03/19 06:16 IMPRESSION: Bilateral pneumonia. Assessment and Plan - Diagnosis (1) Sickle cell anemia with pain Is this a current diagnosis for this admission?: Yes Plan: Patient is improving. - Dilaudid decreased to 2 mg q2 - We will continue with IV hydration and encourage oral fluid intake. - per patient usual pain medications is oxycodone 10 mg q6 and methadon 5 mg - continue incentive spirometry, hydration -Plan will be able to transition him to his oral medications by today and possibly discharge -Heme following (2) Conjunctivitis, both eyes Qualifiers: Conjunctivitis type: acute Acute conjunctivitis type: unspecified Q ualified Code(s): H10.33 - Unspecified acute conjunctivitis, bilateral Is this a current diagnosis for this admission?: Yes Plan: -Patient uses tobramycin at home. -tobradex resumed, in formulary
--- NOTE | 2019-12-14 08:18 | PDOC PROGRESS REPORT ---
Subjective Progress Note for:: 12/14/19 Subjective:: Doing better, seems ready for d/c today. I will electronically send in his oxy IR, methadone and senakot-s. Reason For Visit: SICKLE CELL PAIN,PNEUMONIA Physical Exam Vital Signs: Temp Pulse Resp BP Pulse Ox 98.3 F 78 17 126/80 H 95 12/13/19 23:47 12/13/19 23:47 12/13/19 23:47 12/13/19 23:47 12/13/19 23:47 Intake & Output 12/13/19 12/14/19 12/15/19 06:59 06:59 06:59 Intake Total 4105 3150 Output Total 4725 2650 Balance -620 500 Weight 92.7 kg 92.7 kg General appearance: PRESENT: no acute distress, well-developed, well-nourished Head exam: PRESENT: atraumatic, normocephalic Eye exam: PRESENT: conjunctiva pink, EOMI, PERRLA. ABSENT: scleral icterus Ear exam: PRESENT: normal external ear exam Mouth exam: PRESENT: moist, tongue midline Neck exam: ABSENT: carotid bruit, JVD, lymphadenopathy, thyromegaly Respiratory exam: PRESENT: clear to auscultation anastasiya. ABSENT: rales, rhonchi, wheezes Cardiovascular exam: PRESENT: RRR. ABSENT: diastolic murmur, rubs, systolic murmur Pulses: PRESENT: normal dorsalis pedis pul Vascular exam: PRESENT: normal capillary refill GI/Abdominal exam: PRESENT: normal bowel sounds, soft. ABSENT: distended, gua rding, mass, organolmegaly, rebound, tenderness Rectal exam: PRESENT: deferred Extremities exam: PRESENT: full ROM. ABSENT: calf tenderness, clubbing, pedal edema Neurological exam: PRESENT: alert, awake, oriented to person, oriented to place, oriented to time, oriented to situation, CN II-XII grossly intact. ABSENT: pierre r sensory deficit Psychiatric exam: PRESENT: appropriate affect, normal mood. ABSENT: homicidal ideation, suicidal ideation Skin exam: PRESENT: dry, intact, warm. ABSENT: cyanosis, rash Results Laboratory Results: 12/09/19 05:05 12/11/19 07:03 12/03/19 12/03/19 12/03/19 04:05 04:05 11:25 Creatine Kinase 70 CK-MB (CK-2) < 0.22 Troponin I 0.015 < 0.012 Impressions: Abdomen/Pelvis CT 12/02/19 22:08 IMPRESSION: No acute abnormality within the abdomen or pelvis. Questionable intermediate density about the dependent aspect of the urinary bladder is most likely artifactual rather than related to luminal debris. Cholelithiasis. 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 TECHNICAL DOCUMENTATION: Quality ID # 436: Final reports with documentation of one or more dose reduction techniques (e.g., Automated exposure control, adjustment of the mA and/or kV according to patient size, use of iterative reconstruction technique) copyright 2011 [employer]- All Rights Reserved Chest X-Ray 12/02/19 22:09 IMPRESSION: Stable chronic changes; no acute disease. copyright 2010 [employer]- All Rights Reserved Chest CT 12/03/19 06:16 IMPRESSION: Bilateral pneumonia. Assessment & Plan - Diagnosis (1) Sickle cell anemia with pain Is this a current diagnosis for this admission?: Yes Plan: Ok for d/c today, I will be sending in his pain meds - Time Time Spent with patient: 15-24 minutes
[2019-12-14] MEDS: HYDROXYUREA 500 MG CAPSULE PO SCH (09:05)
[2019-12-14] MEDS: FOLIC ACID 1 MG TABLET PO SCH (09:05)
[2019-12-14] MEDS: DOCUSATE SODIUM 100 MG CAPSULE PO SCH (09:05)
[2019-12-14] MEDS: ENOXAPARIN SODIUM INJ 40 MG/0.4 ML DISP.SYRIN SUBCUT SCH (11:55)
[2019-12-14 14:40] VITALS: BP 120/76
--- NOTE | 2019-12-15 06:49 | PDOC DISCHARGE SUMMARY ---
Impression - Admit/DC Date/PCP Admission Date/Primary Care Provider: 12/03/19 09:34 BETH STAPLETON MD Discharge Date: 12/14/19 - Discharge Diagnosis (1) Sickle cell anemia with pain Is this a current diagnosis for this admission?: Yes (2) Conjunctivitis, both eyes Is this a current diagnosis for this admission?: Yes - Assessment Summary: Patient is a 39-year-old male history of sickle cell disease recurrent admissions for sickle cell pain episodes of acute chest syndrome who was admitted due to chest pain - Additional Information Resuscitation Status: Full Code Discharge Diet: As Tolerated Discharge Activity: Activity As Tolerated Referrals: BETH STAPLETON MD [Primary Care Provider] - 12/17/19 2:15 pm Home Medications: Oxycodone HCl [Oxy-Ir 5 mg Tablet] 10 mg PO Q4HP PRN 02/19/19 Ibuprofen [Ibu] 600 mg PO Q8HP PRN 10/17/19 Docusate Sodium [Colace 100 mg Capsule] 100 mg PO BID capsule 10/26/19 Folic Acid [Folvite 1 mg Tablet] 1 mg PO DAILY tablet 10/26/19 Hydroxyurea [Hydrea 500 mg Capsule] 1,500 mg PO DAILY capsule 10/26/19 Methadone HCl [Dolophine 10 mg Tablet] 5 mg PO Q8 tablet 10/26/19 Baclofen [Baclofen 10 mg Tablet] 10 mg PO BIDP PRN 12/03/19 Melatonin [Melatonin 5 mg Tablet] 10 mg PO HSP PRN 12/03/19 Pseudoephedrine HCl [Sudafed 30 mg Tablet] 30 mg PO Q6HP PRN 12/03/19 Tobramycin Sulfate/Dexameth [Tobradex Oph Drops 2.5 ml] 1 drop OU Q6 bottle 12/14/19 History of Present Illiness History of Present Illness: MARISA GARBER is a 39 year old male, diagnosed case of sickle cell disease, frequent admissions for sickle cell pain episodes acute chest syndrome who presented to the ED on December 02 for evaluation of chest pain. Chest pain has been going on for several days and he has been receiving treatment in the outpatient setting with IV fluids and narcotics. He has also been started on doxycycline a few days ago for treatment of possible pneumonia. However his pain has persisted despite these and now coming to the hospital for evaluation he also continues to have joint pains and bone pains. Patient was then admitted for acute pain crisis. Hospital Course Hospital Course: Upon admission to the floors he was started on IV fluids incentive spirometry Dilaudid for pain and oxygen. Hydroxyurea and folic acid were resumed. Chest CT showed bilateral lower lung interstitial/reticular opacities. No leukocytosis on labs. CT findings was discussed with Dr. Stapleton and it was decided that possibility of acute chest syndrome is low therefore he will not need exchange transfusion. Doxycycline was continued. His pain gradually improved throughout the course of his admission. TobraDex eyedrops was restarted. And he was subsequently discharged after 12 days of admission. Physical Exam Vital Signs: Temp Pulse Resp BP Pulse Ox 97.9 F 67 17 120/76 98 12/14/19 14:36 12/14/19 14:36 12/14/19 14:36 12/14/19 14:36 12/14/19 14:36 Intake & Output 12/13/19 12/14/19 12/15/19 06:59 06:59 06:59 Intake Total 4105 3150 Output Total 4725 2650 700 Balance -620 500 -700 Weight 92.7 kg 92.7 kg 92.7 kg General appearance: PRESENT: no acute distress, cooperative Head exam: PRESENT: atraumatic, normocephalic Eye exam: PRESENT: EOMI, PERRLA Mouth exam: PRESENT: moist Neck exam: PRESENT: full ROM Respiratory exam: PRESENT: clear to auscultation anastasiya, symmetrical, unlabored. ABSENT: crackles Cardiovascular exam: PRESENT: RRR, +S1, +S2 - normal Pulses: PRESENT: normal radial pulses Vascular exam: PRESENT: normal capillary refill, pallor GI/Abdominal exam: PRESENT: soft. ABSENT: guarding, rebound, tenderness Extremities exam: ABSENT: +2 edema Musculoskeletal exam: PRESENT: full ROM Neurological exam: PRESENT: alert, awake, oriented to person, oriented to place, oriented to time Psychiatric exam: PRESENT: normal mood Results Laboratory Results: WBC 5.9 10^3/uL (4.0-10.5) 12/09/19 05:05 RBC 2.58 10^6/uL (4.35-5.55) L 12/09/19 05:05 Hgb 8.5 g/dL (13.5-17.0) L 12/09/19 05:05 Hct 24.4 % (37.9-51.0) L 12/09/19 05:05 MCV 95 fl (80-97) 12/09/19 05:05 MCH 32.8 pg (27.0-33.4) 12/09/19 05:05 MCHC 34.8 g/dL (32.0-36.0) 12/09/19 05:05 RDW 22.3 % (11.5-14.0) H 12/09/19 05:05 Plt Count 430 10^3/uL (150-450) 12/09/19 05:05 Lymph % (Auto) Not Reportable 12/09/19 05:05 [place] % (Auto) Not Reportable 12/09/19 05:05 Eos % (Auto) Not Reportable 12/09/19 05:05 Baso % (Auto) Not Reportable 12/09/19 05:05 Reticulocyte # 0.222 10^6/uL (0.028-0.122) H 12/03/19 04:05 Absolute Neuts (auto) Not Reportable 12/09/19 05:05 Absolute Lymphs (auto) Not Reportable 12/09/19 05:05 Absolute Monos (auto) Not Reportable 12/09/19 05:05 Absolute Eos (auto) Not Reportable 12/09/19 05:05 Absolute Basos (auto) Not Reportable 12/09/19 05:05 Total Counted 100 12/09/19 05:05 Seg Neutrophils % Not Reportable 12/09/19 05:05 Seg Neuts % (Manual) 56 % (42-78) 12/09/19 05:05 Band Neutrophils % 1 % (3-5) L 12/05/19 04:45 Lymphocytes % (Manual) 27 % (13-45) 12/09/19 05:05 Atypical Lymphs % 2 % (0) 12/09/19 05:05 Monocytes % (Manual) 10 % (3-13) 12/09/19 05:05 Eosinophils % (Manual) 2 % (0-6) 12/09/19 05:05 Basophils % (Manual) 3 % (0-2) H 12/09/19 05:05 Abs Neuts (Manual) 3.3 10^3/uL (1.7-8.2) 12/09/19 05:05 Abs Lymphs (Manual) 1.7 10^3/uL (0.5-4.7) 12/09/19 05:05 Abs Monocytes (Manual) 0.6 10^3/uL (0.1-1.4) 12/09/19 05:05 Absolute Eos (Manual) 0.1 10^3/uL (0.0-0.6) 12/09/19 05:05 Abs Basophils (Manual) 0.2 10^3/uL (0.0-0.2) 12/09/19 05:05 Nucleated RBCs 1 /100 WBC (0) 12/09/19 05:05 Toxic Granulation 1+ 12/07/19 04:30 Toxic Vacuolation PRESENT 12/07/19 04:30 Platelet Estimate Cancelled 12/04/19 04:55 Platelet Comment ADEQUATE 12/09/19 05:05 Polychromasia 1+ 12/09/19 05:05 Poikilocytosis 1+ 12/09/19 05:05 Anisocytosis 3+ 12/09/19 05:05 Sickle Cells 1+ 12/09/19 05:05 Target Cells SLIGHT 12/09/19 05:05 Tear Drop Cells 1+ 12/07/19 04:30 Ovalocytes SLIGHT 12/09/19 05:05 Helmet Cells SLIGHT 12/07/19 04:30 Mcdermott-Bartelso Bodies PRESENT 12/05/19 04:45 [place] Cells SLIGHT 12/03/19 04:05 Schistocytes 1+ 12/07/19 04:30 Retic Count (auto) 7.61 % (0.66-2.85) H 12/03/19 04:05 D-Dimer 2.22 ug/mL (0.00-0.50) H 12/03/19 04:05 Sodium 140.4 mmol/L (137-145) 12/11/19 07:03 Potassium 4.4 mmol/L (3.6-5.0) 12/11/19 07:03 Chloride 103 mmol/L (98-107) 12/11/19 07:03 Carbon Dioxide 29 mmol/L (22-30) 12/11/19 07:03 Anion Gap 8 (5-19) 12/11/19 07:03 BUN 5 mg/dL (7-20) L 12/11/19 07:03 Creatinine 0.55 mg/dL (0.52-1.25) 12/11/19 07:03 Est GFR ( Amer) > 60 (>60) 12/11/19 07:03 Est GFR (MDRD) Non-Af > 60 (>60) 12/11/19 07:03 Glucose 99 mg/dL (75-110) 12/11/19 07:03 Calcium 8.6 mg/dL (8.4-10.2) 12/11/19 07:03 Total Bilirubin 1.1 mg/dL (0.2-1.3) 12/11/19 07:03 Direct Bilirubin 0.0 mg/dL (0.0-0.4) 12/11/19 07:03 Neonat Total Bilirubin Not Reportable 12/11/19 07:03 Neonat Direct Bilirubin Not Reportable 12/11/19 07:03 Neonat Indirect Bili Not Reportable 12/11/19 07:03 AST 41 U/L (17-59) 12/11/19 07:03 ALT 24 U/L (<50) 12/11/19 07:03 Alkaline Phosphatase 108 U/L (38-126) 12/11/19 07:03 Lactate Dehydrogenase 390 U/L (120-246) H 12/11/19 07:03 Creatine Kinase 70 U/L (55-170) 12/03/19 04:05 CK-MB (CK-2) < 0.22 ng/mL (<4.55) 12/03/19 04:05 Troponin I < 0.012 ng/mL 12/03/19 11:25 Total Protein 7.5 g/dL (6.3-8.2) 12/11/19 07:03 Albumin 3.7 g/dL (3.5-5.0) 12/11/19 07:03 Urine Color YELLOW 12/03/19 05:20 Urine Appearance CLEAR 12/03/19 05:20 Urine pH 6.0 (5.0-9.0) 12/03/19 05:20 Ur Specific Echo 1.010 12/03/19 05:20 Urine Protein NEGATIVE mg/dL (NEGATIVE) 12/03/19 05:20 Urine Glucose (UA) NEGATIVE mg/dL (NEGATIVE) 12/03/19 05:20 Urine Ketones NEGATIVE mg/dL (NEGATIVE) 12/03/19 05:20 Urine Blood NEGATIVE (NEGATIVE) 12/03/19 05:20 Urine Nitrite NEGATIVE (NEGATIVE) 12/03/19 05:20 Urine Bilirubin NEGATIVE (NEGATIVE) 12/03/19 05:20 Urine Urobilinogen NEGATIVE mg/dL (<2.0) 12/03/19 05:20 Ur Leukocyte Esterase NEGATIVE (NEGATIVE) 12/03/19 05:20 Urine WBC (Auto) 0 /HPF 12/03/19 05:20 Urine Mucus (Auto) RARE /LPF 12/03/19 05:20 Urine Ascorbic Acid NEGATIVE (NEGATIVE) 12/03/19 05:20 COVID-19 Source NASOPHARYNGEAL 12/03/19 09:40 COVID-19 (BIGG) NOT DETECTED 12/03/19 09:40 Slides for Path Review Cancelled 12/04/19 04:55 12/03/19 12/03/19 04:05 11:25 CK-MB (CK-2) < 0.22 Troponin I 0.015 < 0.012 Impressions: Abdomen/Pelvis CT 12/02/19 22:08 IMPRESSION: No acute abnormality within the abdomen or pelvis. Questionable intermediate density about the dependent aspect of the urinary bladder is most likely artifactual rather than related to luminal debris. Cholelithiasis. 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 TECHNICAL DOCUMENTATION: Quality ID # 436: Final reports with documentation of one or more dose reduction techniques (e.g., Automated exposure control, adjustment of the mA and/or kV according to patient size, use of iterative reconstruction technique) copyright 2011 [employer]- All Rights Reserved Chest X-Ray 12/02/19 22:09 IMPRESSION: Stable chronic changes; no acute disease. copyright 2011 [employer]- All Rights Reserved Chest CT 12/03/19 06:16 IMPRESSION: Bilateral pneumonia. Plan Health Concerns: -Treatment of pain outpatient Plan of Treatment: Follow-up as an outpatient with his primary care physician Stroke Is this a Stroke Patient?: No Stroke Pt being discharged on Anti-thrombolytic therapy?: No Reason(s) for not prescribing Anti-thrombolytic therapy:: Not indicated Stroke Pt being discharged on Anti-coagulation therapy?: No Reason(s) for not prescribing Anti-coagulation therapy:: Not indicated Stroke Pt being discharged on Statins?: No Reason(s) for not prescribing Statins therapy:: Medical Contraindication, Not indicated Acute Heart Failure - Is this a Heart Failure Patient?: No Documentation of LVEF assessment?: No, Document reason LVEF - Reason: Not indicated LVEF: LVEF Greater Than 40% Anticoagulant Therapy: No, document contraindications Reason(s) not Discharged on Anticoagulant Therapy: Other Anticoagulant Therapy Reason - Other: Not indicated Discharged on Evidence-Based Beta Blockers: No, document contraindications Reason(s) not discharged on Evidence-Based Beta Blockers: Other Beta Amanda Reason - Other: Not indicated Discharged on ARNI?: No-Document Contraindications Reason(s) not discharged on ARNI: Other ARNI Reason - Other: Not indicated Discharged on ARB?: No-document contraindications Reason(s) not Discharged on ARB: Other ARB Reason - Other: Not indicated Discharged on ACEI?: No, document contraindications Reason(s) not Discharged on ACEI: other ACEI Reason - Other: Not indicated For LVEF <35%, discharged on Aldosterone Antagonist?: No-document contraincations Reason(s) not discharged on Aldosterone Antagonist: Other Aldosterone Antagonist Reason - Other: Not indicated Follow-up Appointment scheduled within 7 days?: No, document reason
== END 2019-12-14 16:03 | disposition home or self-care (01) | DRG 812 ==
LOC: ER 21:33 → EH 12-03 09:34 → 3W 12-03 19:00 → 4S 12-04 17:28
PROVIDERS: ADMIT Internal Medicine; ATTEND Internal Medicine
DX: D57.01 Hb-SS disease with acute chest syndrome (principal); J84.9 Interstitial pulmonary disease, unspecified; H10.33 Unspecified acute conjunctivitis, bilateral; F32.9 Major depressive disorder, single episode, unspecified; Z11.59 Encounter for screening for other viral diseases; Z88.8 Allergy status to other drugs, medicaments and biological substances; Z88.6 Allergy status to analgesic agent; Z88.1 Allergy status to other antibiotic agents; Z88.3 Allergy status to other anti-infective agents; Z91.040 Latex allergy status; Z79.891 Long term (current) use of opiate analgesic; Z79.899 Other long term (current) drug therapy
CPT/HCPCS: 36415; 71046; 71250; 74176; 80048; 80053; 81001; 82550; 82553; 83615; 84484; 85025; 85045; 85379; 87040; 87635; 93005; 93010; 94799; 96374; 96375; 99281; 99285; C9803; J1170; J1200; J1642; J1650; J3490; J7030; J7120

== ENCOUNTER 2019-12-15 12:15 | Outpatient (CLI) | payer MEDICARE, MEDICAID ==
[2019-12-15] MEDS ORDERED: NORMAL SALINE 1000 ML 1,000 ML IV PRN (12:17)
[2019-12-15] MEDS ORDERED: DIPHENHYDRAMINE HCL 25 MG in NORMAL SALINE 50 ML IV PRN (12:17)
[2019-12-15] MEDS ORDERED: HYDROMORPHONE HCL INJ/PF 2 MG/ML AMPULE IV PRN (12:19)
[2019-12-15 12:33] VITALS: BP 125/89
[2019-12-15] MEDS ORDERED: NORMAL SALINE 1000 ML 2,000 ML IV PRN (12:34)
== END 2019-12-15 15:00 | disposition home or self-care (01) ==
LOC: II 12:15 → 5TH 12:17 → II 15:00
PROVIDERS: ATTEND Internal Medicine
DX: D57.1 Sickle-cell disease without crisis (principal); E86.0 Dehydration; R52 Pain, unspecified
CPT/HCPCS: 96365; 96375; 96361; J1200; J1170; J1642

== ENCOUNTER 2019-12-16 07:42 | Outpatient (CLI) | payer MEDICARE, MEDICAID ==
[2019-12-16] MEDS ORDERED: NORMAL SALINE 1000 ML 1,000 ML IV PRN ×2 (07:47→09:09)
[2019-12-16] MEDS ORDERED: DIPHENHYDRAMINE HCL 25 MG in NORMAL SALINE 50 ML IV PRN (07:47)
[2019-12-16] MEDS ORDERED: HYDROMORPHONE HCL INJ/PF 2 MG/ML AMPULE IV PRN (07:49)
[2019-12-16 08:10] VITALS: BP 125/79
== END 2019-12-16 10:35 | disposition home or self-care (01) ==
LOC: II 07:42 → 5TH 07:44 → II 10:35
PROVIDERS: ATTEND Internal Medicine
DX: D57.1 Sickle-cell disease without crisis (principal); E86.0 Dehydration; R52 Pain, unspecified
CPT/HCPCS: 96365; 96375; 96361; J1200; J1170; J1642

== ENCOUNTER 2019-12-17 09:04 | Outpatient (CLI) | payer MEDICARE, MEDICAID ==
[2019-12-17] MEDS ORDERED: DIPHENHYDRAMINE HCL 25 MG in NORMAL SALINE 50 ML IV PRN (09:22)
[2019-12-17] MEDS ORDERED: HYDROMORPHONE HCL INJ/PF 2 MG/ML AMPULE IV PRN (09:24)
[2019-12-17] MEDS: NORMAL SALINE 1000 ML @ AS DIRECTED IV PRN ×2 (09:39→10:40)
[2019-12-17 10:03] VITALS: BP 122/77
== END 2019-12-17 11:45 | disposition home or self-care (01) ==
LOC: II 09:04 → 5TH 09:06 → II 11:45
PROVIDERS: ATTEND Internal Medicine
DX: D57.1 Sickle-cell disease without crisis (principal); E86.0 Dehydration; R52 Pain, unspecified
CPT/HCPCS: 96365; 96375; 96361; J1200; J1170; J1642

== ENCOUNTER → 2019-12-21 | Outpatient (CLI) | payer MEDICARE, MEDICAID ==
[~2019-12-21] MED LIST changes: -DIPHENHYDRAMINE HCL 25 MG in NORMAL SALINE 50 ML IV PRN; +DIPHENHYDRAMINE HCL 50 MG/ML VIAL IV PRN; +DIPHENHYDRAMINE HCL 50 MG/ML VIAL ONE; +HYDROMORPHONE HCL INJ/PF 2 MG/ML AMPULE ONE
[2019-12-21 15:07] VITALS: BP 132/86
== END ==
LOC: ASU 12:03
PROVIDERS: ATTEND Internal Medicine
DX: D57.1 Sickle-cell disease without crisis (principal); E86.0 Dehydration; R52 Pain, unspecified
CPT/HCPCS: 96374; 96375; 96361; J1200; J1170; J1642; 96366

== ENCOUNTER 2019-12-23 08:05 | Outpatient (CLI) | payer MEDICARE, MEDICAID ==
[2019-12-23 08:14] VITALS: BP 130/93
[2019-12-23] MEDS ORDERED: DIPHENHYDRAMINE HCL 25 MG in NORMAL SALINE 50 ML IV PRN (08:14)
[2019-12-23] MEDS ORDERED: HYDROMORPHONE HCL INJ/PF 2 MG/ML AMPULE IV PRN (08:17)
[2019-12-23] MEDS: NORMAL SALINE 1000 ML 2,000 ML IV PRN ×2 (08:24→09:52)
== END 2019-12-23 12:00 | disposition home or self-care (01) ==
LOC: II 08:05 → 5TH 08:07 → II 12:00
PROVIDERS: ATTEND Internal Medicine
DX: D57.1 Sickle-cell disease without crisis (principal); E86.0 Dehydration; R52 Pain, unspecified
CPT/HCPCS: 96365; 96375; 96361; J1200; J1170; J1642

== ENCOUNTER 2019-12-25 08:45 | Outpatient (CLI) | payer MEDICARE, MEDICAID ==
[~2019-12-25 08:45] MED LIST changes: +DIPHENHYDRAMINE HCL 25 MG in NORMAL SALINE 50 ML IV PRN; -DIPHENHYDRAMINE HCL 50 MG/ML VIAL ONE; -HYDROMORPHONE HCL INJ/PF 2 MG/ML AMPULE ONE; -NORMAL SALINE 1000 ML 1,000 ML IV PRN
[2019-12-25] MEDS: NORMAL SALINE 1000 ML 2,000 ML IV PRN ×2 (09:07→10:17)
[2019-12-25 09:41] VITALS: BP 119/86
== END 2019-12-25 12:00 | disposition home or self-care (01) ==
LOC: II 08:45 → 5TH 08:47 → II 12:00
PROVIDERS: ATTEND Internal Medicine
DX: D57.1 Sickle-cell disease without crisis (principal); E86.0 Dehydration; R52 Pain, unspecified
CPT/HCPCS: 96365; 96375; 96361; J1200; J1170; J1642

== ENCOUNTER 2019-12-28 10:42 | Outpatient (CLI) | payer MEDICARE, MEDICAID ==
[2019-12-28 11:03] VITALS: BP 133/88
[2019-12-28] MEDS ORDERED: NORMAL SALINE 1000 ML 1,000 ML IV PRN (11:25)
[2019-12-28] MEDS ORDERED: HYDROMORPHONE HCL INJ/PF 2 MG/ML AMPULE IV PRN (11:27)
[2019-12-28] MEDS ORDERED: DIPHENHYDRAMINE HCL 50 MG/ML VIAL IV PRN (11:28)
== END 2019-12-28 13:42 | disposition home or self-care (01) ==
LOC: II 10:42 → 2N 10:43 → II 13:42
PROVIDERS: ATTEND Internal Medicine
DX: D57.1 Sickle-cell disease without crisis (principal); E86.0 Dehydration; R52 Pain, unspecified
CPT/HCPCS: 96374; 96375; J1200; J1170; J7030; J1642

== ENCOUNTER 2019-12-30 09:42 | Outpatient (CLI) | payer MEDICARE, MEDICAID ==
[~2019-12-30 09:42] MED LIST changes: -DIPHENHYDRAMINE HCL 50 MG/ML VIAL IV PRN; +NORMAL SALINE 1000 ML 1,000 ML IV PRN; +NORMAL SALINE 1000 ML 2,000 ML IV PRN
[2019-12-30] MEDS ORDERED: DIPHENHYDRAMINE HCL IV PRN (10:08)
[2019-12-30] MEDS ORDERED: NORMAL SALINE IV PRN (10:08)
[2019-12-30 10:14] VITALS: BP 117/75
== END 2019-12-30 12:30 | disposition home or self-care (01) ==
LOC: II 09:42 → 5TH 09:44 → II 12:30
PROVIDERS: ATTEND Internal Medicine
DX: D57.1 Sickle-cell disease without crisis (principal); E86.0 Dehydration; R52 Pain, unspecified
CPT/HCPCS: 96365; 96375; 96361; J1200; J1170; J7050; J1642

== ENCOUNTER 2020-01-01 08:28 | Outpatient (CLI) | payer MEDICARE, MEDICAID ==
[~2020-01-01 08:28] MED LIST changes: -NORMAL SALINE 1000 ML 2,000 ML IV PRN
[2020-01-01 08:51] VITALS: BP 119/78
== END 2020-01-01 09:58 | disposition home or self-care (01) ==
LOC: II 08:28 → 5TH 08:29 → II 09:58
PROVIDERS: ATTEND Internal Medicine
DX: D57.1 Sickle-cell disease without crisis (principal); E86.0 Dehydration; R52 Pain, unspecified
CPT/HCPCS: 96365; 96375; 96361; J1200; J1170; J1642

== ENCOUNTER → 2020-01-04 | Outpatient (CLI) | payer MEDICARE, MEDICAID ==
[~2020-01-04] MED LIST changes: +DIPHENHYDRAMINE HCL 50 MG/ML VIAL IV PRN; +DIPHENHYDRAMINE HCL 50 MG/ML VIAL ONE; +HYDROMORPHONE HCL INJ/PF 2 MG/ML AMPULE ONE
[2020-01-04 11:36] VITALS: BP 126/84
== END ==
LOC: II 10:38
PROVIDERS: ATTEND Internal Medicine
DX: D57.1 Sickle-cell disease without crisis (principal); E86.0 Dehydration; R52 Pain, unspecified
CPT/HCPCS: 96374; 96375; 96361; J1200; J1170; J1642; 96365

== ENCOUNTER 2020-01-06 08:12 | Outpatient (CLI) | payer MEDICARE, MEDICAID ==
[~2020-01-06 08:12] MED LIST changes: -DIPHENHYDRAMINE HCL 50 MG/ML VIAL IV PRN; -DIPHENHYDRAMINE HCL 50 MG/ML VIAL ONE; -HYDROMORPHONE HCL INJ/PF 2 MG/ML AMPULE ONE
[2020-01-06 08:37] VITALS: BP 139/94
== END 2020-01-06 10:15 | disposition home or self-care (01) ==
LOC: II 08:12 → 5TH 08:15 → II 10:15
PROVIDERS: ATTEND Internal Medicine
DX: D57.1 Sickle-cell disease without crisis (principal); E86.0 Dehydration; R52 Pain, unspecified
CPT/HCPCS: 96365; 96375; 96361; J1200; J1170; J1642

== ENCOUNTER 2020-01-08 08:15 | Outpatient (CLI) | payer MEDICARE, MEDICAID ==
[~2020-01-08 08:15] MED LIST changes: -NORMAL SALINE 1000 ML 1,000 ML IV PRN
[2020-01-08] MEDS: NORMAL SALINE 1000 ML 1,000 ML IV PRN ×2 (08:31→08:57)
[2020-01-08 10:07] VITALS: BP 115/78
== END 2020-01-08 10:36 | disposition home or self-care (01) ==
LOC: II 08:15 → 5TH 08:18 → II 10:36
PROVIDERS: ATTEND Internal Medicine
DX: D57.1 Sickle-cell disease without crisis (principal); E86.0 Dehydration; R52 Pain, unspecified
CPT/HCPCS: 96365; 96375; 96361; J1200; J1170; J1642

== ENCOUNTER → 2020-01-11 | Outpatient (CLI) | payer MEDICARE, MEDICAID ==
[~2020-01-11] MED LIST changes: -DIPHENHYDRAMINE HCL 25 MG in NORMAL SALINE 50 ML IV PRN; +DIPHENHYDRAMINE HCL 50 MG/ML VIAL ONE; +HYDROMORPHONE HCL INJ/PF 2 MG/ML AMPULE INJ PRN; -HYDROMORPHONE HCL INJ/PF 2 MG/ML AMPULE IV PRN; +HYDROMORPHONE HCL INJ/PF 2 MG/ML AMPULE ONE; +NORMAL SALINE 1000 ML 1,000 ML IV PRN
[2020-01-11 13:18] VITALS: BP 139/89
== END ==
LOC: ASU 10:45
PROVIDERS: ATTEND Internal Medicine
DX: D57.1 Sickle-cell disease without crisis (principal); E86.0 Dehydration; R52 Pain, unspecified
CPT/HCPCS: 96374; 96375; J1200; J1170; J1642; 96365

== ENCOUNTER 2020-01-13 08:17 | Outpatient (CLI) | payer MEDICARE, MEDICAID ==
[~2020-01-13 08:17] MED LIST changes: +DIPHENHYDRAMINE HCL 25 MG in NORMAL SALINE 50 ML IV PRN; -DIPHENHYDRAMINE HCL 50 MG/ML VIAL ONE; -HYDROMORPHONE HCL INJ/PF 2 MG/ML AMPULE INJ PRN; +HYDROMORPHONE HCL INJ/PF 2 MG/ML AMPULE IV PRN; -HYDROMORPHONE HCL INJ/PF 2 MG/ML AMPULE ONE
[2020-01-13 09:06] VITALS: BP 124/88
== END 2020-01-13 10:15 | disposition home or self-care (01) ==
LOC: II 08:17 → 5TH 08:23 → II 10:15
PROVIDERS: ATTEND Internal Medicine
DX: D57.1 Sickle-cell disease without crisis (principal); E86.0 Dehydration; R52 Pain, unspecified
CPT/HCPCS: 96365; 96375; 96361; J1200; J1170; J1642

== ENCOUNTER 2020-01-15 08:10 | Outpatient (CLI) | payer MEDICARE, MEDICAID ==
[2020-01-15 08:21] VITALS: BP 133/79
== END 2020-01-15 10:22 | disposition home or self-care (01) ==
LOC: II 08:10 → 5TH 08:20 → II 10:22
PROVIDERS: ATTEND Internal Medicine
DX: D57.1 Sickle-cell disease without crisis (principal); E86.0 Dehydration; R52 Pain, unspecified
CPT/HCPCS: 96365; 96375; 96361; J1200; J1170; J1642

== ENCOUNTER → 2020-01-18 | Outpatient (CLI) | payer MEDICARE, MEDICAID ==
[~2020-01-18] MED LIST changes: -DIPHENHYDRAMINE HCL 25 MG in NORMAL SALINE 50 ML IV PRN; +DIPHENHYDRAMINE HCL 50 MG/ML VIAL IV PRN; +DIPHENHYDRAMINE HCL 50 MG/ML VIAL ONE; +HYDROMORPHONE HCL INJ/PF 2 MG/ML AMPULE ONE
[2020-01-18 14:30] VITALS: BP 126/82
== END ==
LOC: ASU 12:04
PROVIDERS: ATTEND Internal Medicine
DX: D57.1 Sickle-cell disease without crisis (principal); E86.0 Dehydration; R52 Pain, unspecified
CPT/HCPCS: 96374; 96375; J1200; J1170; J1642; 96365

== ENCOUNTER 2020-01-20 08:15 | Outpatient (CLI) | payer MEDICARE, MEDICAID ==
[2020-01-20] MEDS ORDERED: NORMAL SALINE 1000 ML 1,000 ML IV PRN (08:23)
[2020-01-20] MEDS ORDERED: DIPHENHYDRAMINE HCL 25 MG in NORMAL SALINE 50 ML IV PRN (08:23)
[2020-01-20] MEDS ORDERED: HYDROMORPHONE HCL INJ/PF 2 MG/ML AMPULE IV PRN (08:24)
[2020-01-20 08:34] VITALS: BP 116/73
== END 2020-01-20 10:00 | disposition home or self-care (01) ==
LOC: II 08:15 → 5TH 08:17 → II 10:00
PROVIDERS: ATTEND Internal Medicine
DX: D57.1 Sickle-cell disease without crisis (principal); E86.0 Dehydration; R52 Pain, unspecified
CPT/HCPCS: 96365; 96375; 96361; J1200; J1170; J1642

== ENCOUNTER 2020-01-22 08:15 | Outpatient (CLI) | payer MEDICARE, MEDICAID ==
[~2020-01-22 08:15] MED LIST changes: +DIPHENHYDRAMINE HCL 25 MG in NORMAL SALINE 50 ML IV PRN; -DIPHENHYDRAMINE HCL 50 MG/ML VIAL IV PRN; -DIPHENHYDRAMINE HCL 50 MG/ML VIAL ONE; -HYDROMORPHONE HCL INJ/PF 2 MG/ML AMPULE ONE; -NORMAL SALINE 1000 ML 1,000 ML IV PRN; +NORMAL SALINE 1000 ML @ AS DIRECTED IV PRN
[2020-01-22 08:24] VITALS: BP 136/90
== END 2020-01-22 10:00 | disposition home or self-care (01) ==
LOC: II 08:15 → 5TH 08:19 → II 10:00
PROVIDERS: ATTEND Internal Medicine
DX: D57.1 Sickle-cell disease without crisis (principal); E86.0 Dehydration; R52 Pain, unspecified
CPT/HCPCS: 96365; 96375; 96361; J1200; J1170; J1642

== ENCOUNTER 2020-01-22 23:08 | Emergency (ER) | payer MEDICARE, MEDICAID ==
[2020-01-22] MEDS ORDERED: NORMAL SALINE 1000 ML 1,000 ML IV ONE (23:16)
[2020-01-22] MEDS ORDERED: HYDROMORPHONE HCL INJ/PF 2 MG/ML AMPULE IV ONE (23:16)
--- NOTE | 2020-01-22 23:18 | ER Document Report ---
ED Medical Screen (RME) - General Chief Complaint: Sickle Cell Crisis Stated Complaint: SICKLE CELLS Time Seen by Provider: 01/22/20 23:15 Primary Care Provider: BETH STAPLETON MD [Primary Care Provider] - Follow up as needed Information source: Patient Notes: Patient presents complaining of joint pain to his hips knees elbows. Patient also complains of low back pain. Patient complains of generalized weakness and shortness of breath. Patient has a history of sickle cell disease and avascular necrosis. 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 I have greeted and performed a rapid initial assessment of this patient. A comprehensive ED assessment and evaluation of the patient, analysis of test results and completion of the medical decision making process will be conducted by additional ED providers. TRAVEL OUTSIDE OF THE [place] IN LAST 30 DAYS: No - Related Data Allergies/Adverse Reactions: famotidine [From Pepcid] Allergy (Severe, Verified 11/02/19 11:45) Anaphylaxis ketorolac tromethamine [From Toradol] Allergy (Severe, Verified 11/02/19 11:45) levofloxacin [From Levaquin] Allergy (Severe, Verified 11/02/19 11:45) meperidine HCl [From Demerol] Allergy (Severe, Verified 11/02/19 11:45) morphine [Morphine] Allergy (Severe, Verified 11/02/19 11:45) tramadol HCl [From Ultram] Allergy (Severe, Verified 11/02/19 11:45) amoxicillin [Amoxicillin] Allergy (Verified 11/02/19 11:45) fentanyl [Fentanyl] Allergy (Verified 11/02/19 11:45) latex [Latex] Allergy (Verified 11/02/19 11:45) ondansetron HCl [From Zofran] Allergy (Verified 11/02/19 11:45) Pork/Porcine Containing Products Allergy (Verified 11/02/19 11:45) promethazine Allergy (Verified 11/02/19 11:45) Home Medications: methadone. oxycodone Past Medical History - Social History Chew tobacco use (# tins/day): No Frequency of alcohol use: None Drug Abuse: None - Past Medical History Cardiac Medical History: Denies: Hx Atrial Fibrillation, Hx Congestive Heart Failure, Hx Coronary Artery Disease, Hx DVT, Hx Heart Attack, Hx Hypercholesterolemia, Hx Hypertension, Hx Peripheral Vascular Disease, Hx Pulmonary Embolism Pulmonary Medical History: Denies: Hx Asthma, Hx Bronchitis, Hx COPD, Hx Pneumonia, Hx Respiratory Failure, Hx Tuberculosis Neurological Medical History: Denies: Hx Cerebrovascular Accident, Hx Migraine, Hx Seizures, Hx Parkinson's Disease Endocrine Medical History: Denies: Hx Diabetes Mellitus Type 1, Hx Diabetes Mellitus Type 2, Hx Hyperthyroidism, Hx Hypothyroidism Renal/ Medical History: Denies: Hx Peritoneal Dialysis GI Medical History: Denies: Hx Cirrhosis, Hx Crohn's Disease, Hx Gastroesophageal Reflux Disease, Hx Hepatitis, Hx Ulcerative Colitis Musculoskeltal Medical History: Denies Hx Arthritis, Denies Hx Gout, Reports Hx Musculoskeletal Deformity - right hip avascular necrosis Skin Medical History: Denies Hx Eczema, Denies Hx Psoriasis Psychiatric Medical History: Reports: Hx Depression Infectious Medical History: Denies: Hx Hepatitis Past Surgical History: Reports: Hx Appendectomy, Hx Vascular Surgery - L port placement, Other - Port placement - Immunizations Immunizations up to date: Yes Hx Diphtheria, Pertussis, Tetanus Vaccination: No Physical Exam - Vital signs Vitals: Temp 98.3 F 01/22/20 23:15 - General General appearance: Alert - Respiratory Respiratory status: No respiratory distress - Back Back: Tender - Lumbar paraspinal tenderness Course - Vital Signs Vital signs: Temp Pulse Resp BP Pulse Ox 98.3 F 01/22/20 23:15 Doctor's Discharge - Discharge Referrals: BETH STAPLETON MD [Primary Care Provider] - Follow up as needed
[2020-01-23] MEDS ORDERED: HYDROMORPHONE HCL INJ/PF 2 MG/ML AMPULE IV ONE ×3 (00:26→04:12)
[2020-01-23] MEDS ORDERED: DIPHENHYDRAMINE HCL 50 MG/ML VIAL IV ONE ×2 (00:27→04:12)
--- NOTE | 2020-01-23 00:29 | ER Document Report ---
ED General Pain - General Chief Complaint: Sickle Cell Crisis Stated Complaint: SICKLE CELLS Time Seen by Provider: 01/22/20 23:15 Primary Care Provider: BETH STAPLETON MD [Primary Care Provider] - 01/25/20 Notes: Patient is a 39-year-old male who presents emergency department with a chief complaint of sickle cell pain. Patient was seen earlier today and received his normal treatments of IV Dilaudid, Benadryl, and IV fluids. Patient was brought to x-ray and an x-ray, he ended up having a syncopal episode. He is able to open his eyes, but is not conversing. When asked if he has pain he shakes his head yes. When asked if he is chest pain he shakes his head no. TRAVEL OUTSIDE OF THE [place] IN LAST 30 DAYS: No - Related Data Allergies/Adverse Reactions: famotidine [From Pepcid] Allergy (Severe, Verified 11/02/19 11:45) Anaphylaxis ketorolac tromethamine [From Toradol] Allergy (Severe, Verified 11/02/19 11:45) levofloxacin [From Levaquin] Allergy (Severe, Verified 11/02/19 11:45) meperidine HCl [From Demerol] Allergy (Severe, Verified 11/02/19 11:45) morphine [Morphine] Allergy (Severe, Verified 11/02/19 11:45) tramadol HCl [From Ultram] Allergy (Severe, Verified 11/02/19 11:45) amoxicillin [Amoxicillin] Allergy (Verified 11/02/19 11:45) fentanyl [Fentanyl] Allergy (Verified 11/02/19 11:45) latex [Latex] Allergy (Verified 11/02/19 11:45) ondansetron HCl [From Zofran] Allergy (Verified 11/02/19 11:45) Pork/Porcine Containing Products Allergy (Verified 11/02/19 11:45) promethazine Allergy (Verified 11/02/19 11:45) Home Medications: methadone. oxycodone Past Medical History - General Information source: Patient - Social History Smoking Status: Never Smoker Chew tobacco use (# tins/day): No Frequency of alcohol use: None Drug Abuse: None Family History: Reviewed & Not Pertinent, Hypertension, Other - Sickle cell anemia Patient has homicidal ideation: No - Past Medical History Cardiac Medical History: Denies: Hx Atrial Fibrillation, Hx Congestive Heart Failure, Hx Coronary Artery Disease, Hx DVT, Hx Heart Attack, Hx Hypercholesterolemia, Hx Hypertension, Hx Peripheral Vascular Disease, Hx Pulmonary Embolism Pulmonary Medical History: Denies: Hx Asthma, Hx Bronchitis, Hx COPD, Hx Pneumonia, Hx Respiratory Failure, Hx Tuberculosis Neurological Medical History: Denies: Hx Cerebrovascular Accident, Hx Migraine, Hx Seizures, Hx Parkinson's Disease Endocrine Medical History: Denies: Hx Diabetes Mellitus Type 1, Hx Diabetes Mellitus Type 2, Hx Hyperthyroidism, Hx Hypothyroidism Renal/ Medical History: Denies: Hx Peritoneal Dialysis GI Medical History: Denies: Hx Cirrhosis, Hx Crohn's Disease, Hx Gastroesophageal Reflux Disease, Hx Hepatitis, Hx Ulcerative Colitis Musculoskeletal Medical History: Denies Hx Arthritis, Denies Hx Gout, Reports Hx Musculoskeletal Deformity - right hip avascular necrosis Skin Medical History: Denies Hx Eczema, Denies Hx Psoriasis Psychiatric Medical History: Reports: Hx Depression Infectious Medical History: Denies: Hx Hepatitis Past Surgical History: Reports: Hx Appendectomy, Hx Vascular Surgery - L port placement, Other - Port placement - Immunizations Immunizations up to date: Yes Hx Diphtheria, Pertussis, Tetanus Vaccination: No Hx Pneumococcal Vaccination: 02/20/11 Review of Systems - Review of Systems Notes: REVIEW OF SYSTEMS: CONSTITUTIONAL : Denies recent illness. Denies recent unintentional weight loss. Denies fever, chills, or sweats. EENT: Denies eye, ear, throat, or mouth pain, discharge, or symptoms. Denies nasal or sinus congestion. CARDIOVASCULAR: Denies chest pain. RESPIRATORY: Denies shortness of breath, cough, congestion, difficulty breathing, or wheezing. GASTROINTESTINAL: Denies nausea, vomiting, and diarrhea. Denies abdominal pain. Denies constipation. GENITOURINARY: Denies difficulty urinating, burning, blood in urine, urgency or frequency. MUSCULOSKELETAL: Denies neck and back pain. See HPI. SKIN: Denies rash, itchiness, or lesions HEMATOLOGIC : Denies easy bruising or bleeding. LYMPHATIC: Denies swollen, painful, enlarged glands. NEUROLOGICAL: Denies no numbness or tingling denies weakness. Denies headache. Denies altered mental status. Denies alteration in speech. PSYCHIATRIC: Denies stress, anxiety, alteration in sleep patterns, or depression. All other systems reviewed and negative. Physical Exam - Vital signs Vitals: Temp 98.3 F 01/22/20 23:15 - Notes Notes: PHYSICAL EXAMINATION: GENERAL: Appears well, healthy, well-nourished, no acute distress. HEAD: Normocephalic, atraumatic. EYES: PERRL, conjunctiva normal, all extraocular movements intact, sclera nonicteric ENT: Moist mucous membranes. NECK: Supple, no noticeable swelling, redness, rash. Normal range of motion. LUNGS: Diminished breath sounds throughout all lung stevens No wheezes rales or rhonchi. CARDIOVASCULAR: S1-S2, regular rate, regular rhythm. Radial pulses 2+, normal. ABDOMEN: Normoactive bowel sounds. Soft, nontender, no guarding, no rebound tenderness, and no masses palpated. EXTREMITIES: Normal strength and range of motion, no pitting or edema. No cyanosis. NEUROLOGICAL: Moves all extremities upon command. Strength 5/5 in all extremities. Tenderness upon palpation to hips and joints PSYCH: Normal mood, normal affect. SKIN: Warm, dry. No rash, lesions, ulcerations noted. Normal skin turgor. Course - Re-evaluation Re-evalutation: 01/23/20 01:32 Reassessed patient and the patient's mental status was back to normal. Patient states that if his pain is too intense, he sometimes has syncopal episodes. Reports this in the past. 01/23/20 05:[address] Stapleton, the patient's golf club weigher. Discussed the syncopal episode with him. And also discussed pneumonia with a leukocytosis. Dr. Stapleton states that if the patient feels he is okay to go home if the patient chooses he would like to, he agrees with the plan. Patient states that he would like to go home with azithromycin. States his pain in better Follow-up precautions were given. Verbal discharge instructions were given to the patient. They verbalized understanding. They are stable for discharge. - Vital Signs Vital signs: Temp Pulse Resp BP Pulse Ox 98.3 F 11 L 95 01/22/20 23:15 01/23/20 06:00 01/23/20 06:00 - Laboratory Result Diagrams: 01/23/20 00:54 01/23/20 00:54 Laboratory results interpreted by me: 01/23/20 01/23/20 01/23/20 00:54 00:54 04:22 WBC 12.4 H RBC 2.80 L Hgb 9.5 L Hct 26.5 L MCH 33.8 H RDW 21.3 H Plt Count 459 H Reticulocyte # 0.281 H Seg Neuts % (Manual) 83 H Lymphocytes % (Manual) 7 L Abs Neuts (Manual) 10.3 H Retic Count (auto) 10.03 H Total Bilirubin 2.3 H Neonat Total Bilirubin 2.1 H Neonat Indirect Bili 2.1 H Urine Urobilinogen 2.0 H Discharge - Discharge Clinical Impression: Sickle cell crisis Pneumonia Qualifiers: Pneumonia type: due to unspecified organism Laterality: bilateral Lung location: unspecified part of lung Qualified Code(s): J18.9 - Pneumonia, unspecified organism Condition: Stable Disposition: HOME, SELF-CARE Additional Instructions: You were seen today for sickle cell pain crisis. Please follow-up with your golf club weigher. Returning to the ED if you have worsening pain, fever greater than 100.4, shortness of breath, persistent vomiting, or any other symptoms that are concerning to you. You have been diagnosed with a pneumonia. It is very important that you take all of your antibiotics until they are gone even if you are feeling better. Please return to the emergency department immediately if you began having wors ening shortness of breath, become confused, have worsening pain, pass out, have persistent vomiting that prevents you from being able to drink fluids for more than 12 hours, or have any other symptoms that are worrisome to you. Please follow-up with your primary care doctor in the next 1-2 days. Prescriptions: Azithromycin [Zithromax 250 mg Tablet] 250 mg PO DAILY #4 tablet Referrals: BETH STAPLETON MD [Primary Care Provider] - 01/25/20
[2020-01-23 01:14] LABS: ABSOLUTE RETICS # 0.281 10^6/uL (0.028-0.122); HEMATOCRIT 26.5 % (37.9-51.0); HEMOGLOBIN 9.5 g/dL (13.5-17.0); MEAN CORPUSCULAR HEMOGLOBIN 33.8 pg (27.0-33.4); MEAN CORPUSCULAR HGB CONC 35.8 g/dL (32.0-36.0); MEAN CORPUSCULAR VOLUME 95 fl (80-97); PLATELET COUNT 459 10^3/uL (150-450); RED CELL DISTRIBUTION WIDTH 21.3 % (11.5-14.0); RETICULOCYTE COUNT (AUTO) 10.03 % (0.66-2.85); WHITE BLOOD COUNT 12.4 10^3/uL (4.0-10.5)
[2020-01-23 01:22] LABS: ALBUMIN 4.3 g/dL (3.5-5.0); ALKALINE PHOSPHATASE 82 U/L (38-126); ANION GAP 8 (5-19); ASPARTATE AMINO TRANSFERASE 46 U/L (17-59); BILIRUBIN,DIRECT 0.3 mg/dL (0.0-0.4); BILIRUBIN,TOTAL 2.3 mg/dL (0.2-1.3); BLOOD UREA NITROGEN 9 mg/dL (7-20); CALCIUM 8.8 mg/dL (8.4-10.2); CARBON DIOXIDE 26 mmol/L (22-30); CHLORIDE 105 mmol/L (98-107); GLUCOSE 103 mg/dL (75-110); NEONATAL BILIRUBIN RESULT 2.1 mg/dL (0.1-1.1); POTASSIUM 3.6 mmol/L (3.6-5.0); TOTAL PROTEIN 8.1 g/dL (6.3-8.2)
[2020-01-23 01:41] LABS: ABSOLUTE LYMPHOCYTES# (MANUAL) 0.9 10^3/uL (0.5-4.7); ABSOLUTE MONOCYTES # (MANUAL) 1.2 10^3/uL (0.1-1.4); BASOPHILS % (MANUAL) 0 % (0-2); EOSINOPHILS % (MANUAL) 0 % (0-6); LYMPHOCYTES % (MANUAL) 7 % (13-45); MONOCYTES % (MANUAL) 10 % (3-13); NUCLEATED RED BLOOD CELLS 2 /100 WBC (0); SEGMENTED NEUTROPHILS % (MAN) 83 % (42-78); TOTAL CELLS COUNTED 100
[2020-01-23 01:42] LABS: POLYCHROMASIA SLIGHT; TOXIC GRANULATION SLIGHT; TOXIC VACUOLATION PRESENT
[2020-01-23 01:43] LABS: ANISOCYTOSIS 3+; OVALOCYTES 2+; PLATELET COMMENT ADEQUATE; POIKILOCYTOSIS 3+; SCHISTOCYTES 2+; SICKLE RED CELLS 3+; TARGET CELLS 1+; TEAR DROP CELLS 1+
--- NOTE | 2020-01-23 01:56 | RADIOLOGY REPORT (SQ) ---
CLINICAL HISTORY: AMS COMPARISON: None. TECHNIQUE: CT HEAD WITHOUT IV CONTRAST on 01/23/2020 12:59 AM CDT This exam was performed according to our departmental dose-optimization program, which includes automated exposure control, adjustment of the mA and/or kV according to patient size and/or use of iterative reconstruction technique. FINDINGS: There is no acute hemorrhage, mass effect or midline shift. Samano-white differentiation is preserved. There is no hydrocephalus. There is no significant volume loss for age. The calvarium is intact. Orbits and globes are unremarkable. The paranasal sinuses are clear. Mastoid air cells are clear. IMPRESSION: No acute intracranial findings.
--- NOTE | 2020-01-23 02:19 | RADIOLOGY REPORT (SQ) ---
EXAM DESCRIPTION: XR CHEST 2 VIEWS COMPLETED DATE/TME: 01/22/2020 23:16 CLINICAL HISTORY: sob COMPARISON: 12/03/2019 FINDINGS: Frontal and lateral radiographic views of the chest. Cardiomediastinal silhouette: Normal size and contour. Left IJ Mediport with tip in the SVC. Lungs: Mild linear bibasilar opacities. No pneumothorax or large effusion. Bones: No acute osseous abnormality. Upper abdomen: No abnormality identified. IMPRESSION: 1. Linear bibasilar opacities may be related to atelectasis or developing pneumonic process.
[2020-01-23] MEDS ORDERED: AZITHROMYCIN 250 MG TABLET PO ONE (02:28)
[2020-01-23] MEDS ORDERED: NORMAL SALINE 1000 ML 1,000 ML IV ONE (04:13)
[2020-01-23 04:47] LABS: APPEARANCE,URINE CLEAR; BILIRUBIN,URINE NEGATIVE (NEGATIVE); COLOR,URINE YELLOW; GLUCOSE, URINE NEGATIVE (NEGATIVE); KETONES,URINE NEGATIVE (NEGATIVE); LEUKOCYTE ESTERASE,URINE NEGATIVE (NEGATIVE); NITRITE,URINE NEGATIVE (NEGATIVE); PROTEIN,URINE NEGATIVE (NEGATIVE)
--- NOTE | 2020-01-23 08:27 | EKG REPORT ---
SEVERITY:- BORDERLINE ECG - SINUS RHYTHM PROBABLE LEFT ATRIAL ABNORMALITY BORDERLINE T ABNORMALITIES, LATERAL LEADS : Confirmed by: Emre Montoya MD 23-Jan-2020 08:25:50
== END 2020-01-23 06:55 | disposition home or self-care (01) ==
LOC: ER 23:08
DX: D57.00 Hb-SS disease with crisis, unspecified (principal); J18.9 Pneumonia, unspecified organism; R55 Syncope and collapse
CPT/HCPCS: 93005; 36591; 96376; 99285; 96361; 96374; 96375; 36415; 85025; 85045; 80053; 81001; 71046; 70450; 93010; A9270; J1200; J1170; J7030; J1642

== ENCOUNTER 2020-01-23 15:30 | Inpatient (IN) | payer MEDICARE, MEDICAID ==
[2020-01-23] MEDS ORDERED: NORMAL SALINE 1000 ML 1,000 ML IV ONE ×2 (15:53→17:48)
--- NOTE | 2020-01-23 15:55 | ER Document Report ---
ED Medical Screen (RME) - General Chief Complaint: Sickle Cell Crisis Stated Complaint: BODY PAIN Time Seen by Provider: 01/23/20 15:38 Primary Care Provider: BETH STAPLETON MD [Primary Care Provider] - Follow up as needed Mode of Arrival: Carried Information source: Patient Notes: 39-year-old male presented to ED for complaint of cough congestion body aches severe back and leg pain. I did speak with Dr. Stapleton. He stated that he was seen yesterday diagnosed with pneumonia and started on Z-Alex. Patient states he is having much worse pain today than yesterday. Dr. Stapleton stated that the patient would probably be getting admitted today. He states gave him oxygen as he is requesting do x-ray to get the COVID testing in the normal testing that we always do. I have greeted and performed a rapid initial assessment of this patient. A comprehensive ED assessment and evaluation of the patient, analysis of test results and completion of medical decision making process will be conducted by an additional ED providers. TRAVEL OUTSIDE OF THE [place] IN LAST 30 DAYS: No - Related Data Allergies/Adverse Reactions: famotidine [From Pepcid] Allergy (Severe, Verified 11/02/19 11:45) Anaphylaxis ketorolac tromethamine [From Toradol] Allergy (Severe, Verified 11/02/19 11:45) levofloxacin [From Levaquin] Allergy (Severe, Verified 11/02/19 11:45) meperidine HCl [From Demerol] Allergy (Severe, Verified 11/02/19 11:45) morphine [Morphine] Allergy (Severe, Verified 11/02/19 11:45) tramadol HCl [From Ultram] Allergy (Severe, Verified 11/02/19 11:45) amoxicillin [Amoxicillin] Allergy (Verified 11/02/19 11:45) fentanyl [Fentanyl] Allergy (Verified 11/02/19 11:45) latex [Latex] Allergy (Verified 11/02/19 11:45) ondansetron HCl [From Zofran] Allergy (Verified 11/02/19 11:45) Pork/Porcine Containing Products Allergy (Verified 11/02/19 11:45) promethazine Allergy (Verified 11/02/19 11:45) Past Medical History - Past Medical History Cardiac Medical History: Denies: Hx Atrial Fibrillation, Hx Congestive Heart Failure, Hx Coronary Artery Disease, Hx DVT, Hx Heart Attack, Hx Hypercholesterolemia, Hx Hypertension, Hx Peripheral Vascular Disease, Hx Pulmonary Embolism Pulmonary Medical History: Denies: Hx Asthma, Hx Bronchitis, Hx COPD, Hx Pneumonia, Hx Respiratory Failure, Hx Tuberculosis Neurological Medical History: Denies: Hx Cerebrovascular Accident, Hx Migraine, Hx Seizures, Hx Parkinson's Disease Endocrine Medical History: Denies: Hx Diabetes Mellitus Type 1, Hx Diabetes Mellitus Type 2, Hx Hyperthyroidism, Hx Hypothyroidism Renal/ Medical History: Denies: Hx Peritoneal Dialysis GI Medical History: Denies: Hx Cirrhosis, Hx Crohn's Disease, Hx Gastro esophageal Reflux Disease, Hx Hepatitis, Hx Ulcerative Colitis Musculoskeltal Medical History: Denies Hx Arthritis, Denies Hx Gout, Reports Hx Musculoskeletal Deformity - right hip avascular necrosis Skin Medical History: Denies Hx Eczema, Denies Hx Psoriasis Psychiatric Medical History: Reports: Hx Depression Infectious Medical History: Denies: Hx Hepatitis Past Surgical History: Reports: Hx Appendectomy, Hx Vascular Surgery - L port placement, Other - Port placement - Immunizations Immunizations up to date: Yes Hx Diphtheria, Pertussis, Tetanus Vaccination: No Doctor's Discharge - Discharge Referrals: BETH STAPLETON MD [Primary Care Provider] - Follow up as needed
[2020-01-23] MEDS ORDERED: ACETAMINOPHEN 325 MG TABLET PO ONE (16:05)
[2020-01-23] MEDS ORDERED: DIPHENHYDRAMINE HCL 50 MG/ML VIAL IV ONE (16:08)
--- NOTE | 2020-01-23 16:41 | RADIOLOGY REPORT (SQ) ---
EXAM DESCRIPTION: CHEST SINGLE VIEW IMAGES COMPLETED DATE/TIME: 01/23/2020 3:08 pm REASON FOR STUDY: short of breath COMPARISON: 10/14/2019 EXAM PARAMETERS: NUMBER OF VIEWS: One view. TECHNIQUE: Single frontal radiographic view of the chest acquired. RADIATION DOSE: NA LIMITATIONS: None. FINDINGS: LUNGS AND PLEURA: Bibasilar atelectasis/ chronic pleural and parenchymal scarring is stabl e from prior. No focal consolidation or pleural effusion. Lungs are hyperinflated. No pneumothorax . MEDIASTINUM AND HILAR STRUCTURES: No masses. Contour normal. HEART AND VASCULAR STRUCTURES: Moderate cardiomegaly. No pulmonary vascular congestion. BONES: No acute findings. HARDWARE: Left MediPort catheter with tip in the mid SVC unchanged. OTHER: No other significant finding. IMPRESSION: No significant interval change. Bibasilar pleural and parenchymal scarring is stable. No acute cardiopulmonary disease. TECHNICAL DOCUMENTATION: JOB ID: [id number] [employer]- All Rights Reserved Reading location - IP/workstation name: [email or web address]
[2020-01-23] MEDS ORDERED: HYDROMORPHONE HCL INJ/PF 2 MG/ML AMPULE IV ONE ×2 (16:43→17:47)
--- NOTE | 2020-01-23 16:45 | ER Document Report ---
ED General - General Chief Complaint: Sickle Cell Crisis Stated Complaint: BODY PAIN Time Seen by Provider: 01/23/20 15:38 Primary Care Provider: BETH STAPLETON MD [Primary Care Provider] - Follow up as needed Mode of Arrival: Carried TRAVEL OUTSIDE OF THE [place] IN LAST 30 DAYS: No - HPI Notes: 39-year-old male history of sickle cell presented to ED by recommendation of Dr. Stapleton, project product manager-oncologist for complaint of SOB, fever, PNA and likely presentation is most consistent with sickle cell crisis. Reports that he is having body aches, becoming more short of breath due to his cough and fever. Patient was started on doxycycline azithromycin by Dr. Stapleton yesterday. He also was given pain medication and IV hydration for his sickle cell. Patient states he is doing much worse today. Patient states he was just COVID tested 3 days ago and it was negative. Denies any nausea vomiting diarrhea, abdominal pain, bowel or bladder dysfunction, saddle anesthesias. - Related Data Allergies/Adverse Reactions: famotidine [From Pepcid] Allergy (Severe, Verified 11/02/19 11:45) Anaphylaxis ketorolac tromethamine [From Toradol] Allergy (Severe, Verified 11/02/19 11:45) levofloxacin [From Levaquin] Allergy (Severe, Verified 11/02/19 11:45) meperidine HCl [From Demerol] Allergy (Severe, Verified 11/02/19 11:45) morphine [Morphine] Allergy (Severe, Verified 11/02/19 11:45) tramadol HCl [From Ultram] Allergy (Severe, Verified 11/02/19 11:45) amoxicillin [Amoxicillin] Allergy (Verified 11/02/19 11:45) fentanyl [Fentanyl] Allergy (Verified 11/02/19 11:45) latex [Latex] Allergy (Verified 11/02/19 11:45) ondansetron HCl [From Zofran] Allergy (Verified 11/02/19 11:45) Pork/Porcine Containing Products Allergy (Verified 11/02/19 11:45) promethazine Allergy (Verified 11/02/19 11:45) Past Medical History - General Information source: Patient - Social History Smoking Status: Former Smoker Family History: Reviewed & Not Pertinent, Hypertension, Other - Sickle cell anemia - Past Medical History Cardiac Medical History: Denies: Hx Atrial Fibrillation, Hx Congestive Heart Failure, Hx Coronary Angelica ry Disease, Hx DVT, Hx Heart Attack, Hx Hypercholesterolemia, Hx Hypertension, Hx Peripheral Vascular Disease, Hx Pulmonary Embolism Pulmonary Medical History: Denies: Hx Asthma, Hx Bronchitis, Hx COPD, Hx Pneumonia, Hx Respiratory Failure, Hx Tuberculosis Neurological Medical History: Denies: Hx Cerebrovascular Accident, Hx Migraine, Hx Seizures, Hx Parkinson's Disease Endocrine Medical History: Denies: Hx Diabetes Mellitus Type 1, Hx Diabetes Mellitus Type 2, Hx Hyperthyroidism, Hx Hypothyroidism Renal/ Medical History: Denies: Hx Peritoneal Dialysis GI Medical History: Denies: Hx Cirrhosis, Hx Crohn's Disease, Hx Gastroesophageal Reflux Disease, Hx Hepatitis, Hx Ulcerative Colitis Musculoskeletal Medical History: Denies Hx Arthritis, Denies Hx Gout, Reports Hx Musculoskeletal Deformity - right hip avascular necrosis Skin Medical History: Denies Hx Eczema, Denies Hx Psoriasis Psychiatric Medical History: Reports: Hx Depression Infectious Medical History: Denies: Hx Hepatitis Past Surgical History: Reports: Hx Appendectomy, Hx Vascular Surgery - L port placement, Other - Port placement - Immunizations Immunizations up to date: Yes Hx Diphtheria, Pertussis, Tetanus Vaccination: No Hx Pneumococcal Vaccination: 02/20/11 Review of Systems - Review of Systems Constitutional: See HPI, Chills EENT: No symptoms reported Cardiovascular: No symptoms reported Respiratory: See HPI Gastrointestinal: No symptoms reported Genitourinary: No symptoms reported Male Genitourinary: No symptoms reported Musculoskeletal: No symptoms reported Skin: No symptoms reported Hematologic/Lymphatic: No symptoms reported Neurological/Psychological: No symptoms reported Physical Exam - Vital signs Vitals: Temp Pulse Resp BP Pulse Ox 101.5 F H 86 16 133/86 H 100 01/23/20 15:58 01/23/20 15:58 01/23/20 15:58 01/23/20 15:58 01/23/20 15:58 - Notes Notes: MEDICATIONS: I agree with the patient medications as charted by the RN. ALLERGIES: I agree with the allergies as charted by the RN. PAST MEDICAL HISTORY/PAST SURGICAL HISTORY: Reviewed and agree as charted by RN. SOCIAL HISTORY: Reviewed and agree as charted by RN. FAMILY HISTORY: No significant familial comorbid conditions directly related to patient complaint EXAM: Reviewed vital signs as charted by RN. ALL OTHER SYSTEMS REVIEWED AND NEGATIVE. Dictation was performed using [employer] recognition software PHYSICAL EXAMINATION: GENERAL: Well-appearing, well-nourished and in mild distress. HEAD: Atraumatic, normocephalic. EYES: Pupils equal round and reactive to light, extraocular movements intact, sclera anicteric, conjunctiva are normal. ENT: Nares patent, oropharynx clear without exudates. Moist mucous membranes. NECK: Normal range of motion, supple without lymphadenopathy LUNGS: diminished breath sounds in all lobes. Breath sounds clear to auscultation bilaterally and equal. No wheezes rales or rhonchi. HEART: Regular rate and rhythm without murmurs ABDOMEN: Soft, nontender, nondistended abdomen. No guarding, no rebound. No masses appreciated. Musculoskeletal: Normal range of motion, no pitting or edema. No cyanosis. NEUROLOGICAL: Cranial nerves grossly intact. Normal speech, normal gait. Normal sensory, motor exams PSYCH: Normal mood, normal affect. SKIN: Warm, Dry, normal turgor, no rashes or lesions noted. Course - Re-evaluation Re-evalutation: 01/23/20 18:31 Febrile, vital signs otherwise stable. Patient given Tylenol 975 for his fever. CBC negative for leukocytosis, H&H stable, patient does have an elevated particular state, patient does have a elevated reticulocyte count and is in a sickle cell crisis. Patient given IV hydration, 50 mg of Benadryl, 3 mg of Dilaudid to help manage his pain. Chest x-ray does show bibasilar pleural scarring, yesterday cxr showed bilateral basilar opacities for possibly develop ing pneumonia, was started on Z-Alex and doxycycline. Patient states he is feeling short of breath. COVID test is pending. CMP negative for hepatic or renal dysfunction, no electrolyte disturbances. 1729-Patient states his pain is getting worse, patient given more Dilaudid as well as IV hydration. consulted with Dr. Stapleton at 0, regarding pertinent laboratory diagnostic and clinical findings, felt that patient needed to be admitted for his sickle cell crisis as well as his pneumonia and fever. He states that he would not be able to manage at home and he would decompensate. Consulted with Dr. Marquez, hospitalist regarding admission for sickle cell crisis as well as shortness of breath, pneumonia, she will accept him to the medical service and requested him to go to the stepdown ICU. A consult was put in for Dr. Stapleton and he stated that hospitalist to call him for pain management - Vital Signs Vital signs: Temp Pulse Resp BP Pulse Ox 101.5 F H 86 16 133/86 H 100 01/23/20 15:58 01/23/20 15:58 01/23/20 15:58 01/23/20 15:58 01/23/20 15:58 - Laboratory Result Diagrams: 01/23/20 16:45 01/23/20 16:45 Laboratory results interpreted by me: 01/23/20 01/23/20 16:45 16:45 RBC 2.83 L Hgb 9.3 L Hct 26.7 L RDW 20.2 H Plt Count 466 H Reticulocyte # 0.302 H Seg Neuts % (Manual) 86 H Lymphocytes % (Manual) 7 L Abs Neuts (Manual) 9.0 H Retic Count (auto) 10.68 H Potassium 3.5 L Glucose 137 H Total Bilirubin 2.9 H Discharge - Discharge Clinical Impression: Sickle cell crisis, Pneumonia, Sickle cell pain crisis Condition: Stable Disposition: ADMITTED INPATIENT Admitting Provider: Dr. Leatha Marquez Unit Admitted: IMCU Referrals: BETH STAPLETON MD [Primary Care Provider] - Follow up as needed
[2020-01-23 17:17] LABS: ABSOLUTE RETICS # 0.302 10^6/uL (0.028-0.122); HEMATOCRIT 26.7 % (37.9-51.0); HEMOGLOBIN 9.3 g/dL (13.5-17.0); MEAN CORPUSCULAR HEMOGLOBIN 32.9 pg (27.0-33.4); MEAN CORPUSCULAR HGB CONC 34.8 g/dL (32.0-36.0); MEAN CORPUSCULAR VOLUME 94 fl (80-97); PLATELET COUNT 466 10^3/uL (150-450); RED BLOOD COUNT 2.83 10^6/uL (4.35-5.55); RED CELL DISTRIBUTION WIDTH 20.2 % (11.5-14.0); RETICULOCYTE COUNT (AUTO) 10.68 % (0.66-2.85); WHITE BLOOD COUNT 10.5 10^3/uL (4.0-10.5)
[2020-01-23 17:26] LABS: A TYPE INFLUENZA AG NEGATIVE (NEGATIVE); B INFLUENZA AG NEGATIVE (NEGATIVE)
[2020-01-23 17:30] LABS: ALBUMIN 4.1 g/dL (3.5-5.0); ALKALINE PHOSPHATASE 70 U/L (38-126); ANION GAP 9 (5-19); ASPARTATE AMINO TRANSFERASE 41 U/L (17-59); BILIRUBIN,DIRECT 0.3 mg/dL (0.0-0.4); BILIRUBIN,TOTAL 2.9 mg/dL (0.2-1.3); BLOOD UREA NITROGEN 8 mg/dL (7-20); CALCIUM 8.9 mg/dL (8.4-10.2); CARBON DIOXIDE 26 mmol/L (22-30); CHLORIDE 104 mmol/L (98-107); GLUCOSE 137 mg/dL (75-110); POTASSIUM 3.5 mmol/L (3.6-5.0); TOTAL PROTEIN 7.5 g/dL (6.3-8.2)
[2020-01-23 18:01] LABS: ABSOLUTE LYMPHOCYTES# (MANUAL) 0.7 10^3/uL (0.5-4.7); ABSOLUTE MONOCYTES # (MANUAL) 0.6 10^3/uL (0.1-1.4); ANISOCYTOSIS 2+; BASOPHILS % (MANUAL) 0 % (0-2); EOSINOPHILS % (MANUAL) 1 % (0-6); LYMPHOCYTES % (MANUAL) 7 % (13-45); MONOCYTES % (MANUAL) 6 % (3-13); NUCLEATED RED BLOOD CELLS 7 /100 WBC (0); SEGMENTED NEUTROPHILS % (MAN) 86 % (42-78); TOTAL CELLS COUNTED 100
[2020-01-23 18:02] LABS: OVALOCYTES 1+; PLATELET COMMENT ADEQUATE; POLYCHROMASIA SLIGHT; SICKLE RED CELLS 1+
[2020-01-23] MEDS ORDERED: IPRATROPIUM/ALBUTEROL 0.5-2.5 MG/3 ML AMPUL NEB ONE (18:31)
[2020-01-23] MEDS ORDERED: MELATONIN 5 MG TABLET PO PRN (19:19)
[2020-01-23] MEDS ORDERED: PSEUDOEPHEDRINE HCL 30 MG TABLET PO PRN (19:19)
[2020-01-23] MEDS ORDERED: IBUPROFEN 600 MG TABLET PO PRN (19:19)
[2020-01-23] MEDS ORDERED: BACLOFEN 10 MG TABLET PO PRN (19:19)
--- NOTE | 2020-01-23 19:52 | PDOC H&P ---
History of Present Illness Admission Date/PCP: 01/23/20 18:38 BETH STAPLETON MD Patient complains of: Pain, SOB History of Present Illness: MARISA GARBER is a 39 year old male, diagnosed case of sickle cell, frequent admissions due to sickle cell pain crisis, who came back to the ED today due to pain generalized cough and shortness of breath. He was seen in the emergency room yesterday with typical sickle cell pain associated with shortness of breath. CBC was done which showed WBC count of 12.4, hemoglobin 9.5, reticulocyte count 0.28. Chest x-ray showed linear bibasilar opacities may be related to atelectasis or developing pneumonic process. He apparently had a syncopal episode have after having a chest x-ray. He was given IV fluids, Dilaudid, oxygen in the emergency room. Dr. Stapleton was called by the ED provider yesterday who recommended doxycycline and azithromycin. Patient was then sent home. At home he continued to have shortness of breath, cough,, increasing pain hence he came back to the ED. In the emergency room WBC count 1 0.5, globin 9.3, reticulocyte count 0.302. Repeat chest x-ray showed bibasilar pleural and parenchymal scarring stable. Dr. Stapleton was consulted who advised that the patient be admitted for sickle cell pain. He also agreed he that the patient needs to be tested for COVID. Past Medical History Cardiac Medical History: Denies: Atrial Fibrillation, Congestive Heart Failure, Coronary Artery Disease, DVT, Myocardial Infarction, Hyperlipidema, Hypertension, Peripheral Vascular Disease, Pulmonary Embolism Pulmonary Medical History: Denies: Asthma, Bronchitis, Chronic Obstructive Pulmonary Disease (COPD), Pneumonia, Respiratory Failure, Tuberculosis Neurological Medical History: Denies: Migraine, Seizures Endocrine Medical History: Denies: Diabetes Mellitus Type 1, Diabetes Mellitus Type 2, Hyperthyroidism, Hypothyroidism GI Medical History: Denies: Cirrhosis, Crohn's Disease, Gastroesophageal Reflux Disease, Hepatitis, Ulcerative Colitis Musculoskeltal Medical History: Denies: Arthritis, Gout Skin Medical History: Denies: Eczema, Psoriasis Psychiatric Medical History: Reports: Depression Hematology: Reports: Anemia, Sickle Cell Disease Denies: Hemophilia, Bleeding Tendencies Past Surgical History Past Surgical History: Reports: Appendectomy, Vascular Surgery - L port placement, Other - Port placement Social History Smoking Status: Former Smoker Frequency of Alcohol Use: None Hx Recreational Drug Use: No Drugs: None Hx Prescription Drug Abuse: No - Advance Directive Resuscitation Status: Full Code Family History Family History: Reviewed & Not Pertinent, Hypertension, Other - Sickle cell anemia Parental Family History Reviewed: Yes Children Family History Reviewed: Yes Sibling(s) Family History Reviewed.: Yes Medication/Allergy Home Medications: Oxycodone HCl [Oxy-Ir 5 mg Tablet] 10 mg PO Q4HP PRN 02/19/19 Ibuprofen [Ibu] 600 mg PO Q8HP PRN 10/17/19 Docusate Sodium [Colace 100 mg Capsule] 100 mg PO BID capsule 10/26/19 Folic Acid [Folvite 1 mg Tablet] 1 mg PO DAILY tablet 10/26/19 Hydroxyurea [Hydrea 500 mg Capsule] 1,500 mg PO DAILY capsule 10/26/19 Methadone HCl [Dolophine 10 mg Tablet] 5 mg PO Q8 tablet 10/26/19 Baclofen [Baclofen 10 mg Tablet] 10 mg PO BIDP PRN 12/03/19 Melatonin [Melatonin 5 mg Tablet] 10 mg PO HSP PRN 12/03/19 Pseudoephedrine HCl [Sudafed 30 mg Tablet] 30 mg PO Q6HP PRN 12/03/19 Tobramycin Sulfate/Dexameth [Tobradex Oph Drops 2.5 ml] 1 drop OU Q6 bottle 12/14/19 Azithromycin [Zithromax 250 mg Tablet] 250 mg PO DAILY #4 tablet 01/23/20 Allergies/Adverse Reactions: famotidine [From Pepcid] Allergy (Severe, Verified 11/02/19 11:45) Anaphylaxis ketorolac tromethamine [From Toradol] Allergy (Severe, Verified 11/02/19 11:45) levofloxacin [From Levaquin] Allergy (Severe, Verified 11/02/19 11:45) meperidine HCl [From Demerol] Allergy (Severe, Verified 11/02/19 11:45) morphine [Morphine] Allergy (Severe, Verified 11/02/19 11:45) tramadol HCl [From Ultram] Allergy (Severe, Verified 11/02/19 11:45) amoxicillin [Amoxicillin] Allergy (Verified 11/02/19 11:45) fentanyl [Fentanyl] Allergy (Verified 11/02/19 11:45) latex [Latex] Allergy (Verified 11/02/19 11:45) ondansetron HCl [From Zofran] Allergy (Verified 11/02/19 11:45) Pork/Porcine Containing Products Allergy (Verified 11/02/19 11:45) promethazine Allergy (Verified 11/02/19 11:45) Review of Systems Constitutional: PRESENT: fever(s) Nose, Mouth, and Throat: ABSENT: mouth pain, sore throat Cardiovascular: PRESENT: chest pain. ABSENT: edema, orthropnea, palpitations Respiratory: PRESENT: cough Gastrointestinal: ABSENT: abdominal pain, heartburn Genitourinary: ABSENT: dysuria Musculoskeletal: PRESENT: back pain, muscle weakness Neurological: ABSENT: confusion, convulsions, dizziness, paresthesias Physical Exam Vital Signs: Temp Pulse Resp BP Pulse Ox 101.5 F H 86 16 133/86 H 100 01/23/20 15:58 01/23/20 15:58 01/23/20 15:58 01/23/20 15:58 01/23/20 15:58 Intake & Output 01/22/20 01/23/20 01/24/20 06:59 06:59 06:59 Intake Total 1000 Balance 1000 Weight 83.915 kg General appearance: PRESENT: cooperative, mild distress Head exam: PRESENT: atraumatic, normocephalic Eye exam: PRESENT: EOMI, PERRLA Ear exam: PRESENT: normal external ear exam Mouth exam: PRESENT: moist Neck exam: PRESENT: full ROM Respiratory exam: PRESENT: rales, symmetrical, unlabored. ABSENT: tachypnea, wheezes Cardiovascular exam: PRESENT: RRR, +S1, +S2 Pulses: PRESENT: normal radial pulses GI/Abdominal exam: PRESENT: normal bowel sounds, soft. ABSENT: rebound, tenderness Extremities exam: PRESENT: calf tenderness, joint swelling Musculoskeletal exam: PRESENT: ambulatory Neurological exam: PRESENT: alert, awake, oriented to person, oriented to place, oriented to time, oriented to situation Psychiatric exam: PRESENT: flat affect Skin exam: PRESENT: normal color Results Laboratory Results: 01/23/20 16:45 01/23/20 16:45 01/23/20 01/23/20 01/23/20 16:45 16:45 16:59 WBC 10.5 RBC 2.83 L Hgb 9.3 L Hct 26.7 L MCV 94 MCH 32.9 MCHC 34.8 RDW 20.2 H Plt Count 466 H Seg Neutrophils % Not Reportable Retic Count (auto) 10.68 H Sodium 139.2 Potassium 3.5 L Chloride 104 Carbon Dioxide 26 Anion Gap 9 BUN 8 Creatinine 0.70 Est GFR ( Amer) > 60 Glucose 137 H Lactic Acid 1.0 Calcium 8.9 Total Bilirubin 2.9 H AST 41 Alkaline Phosphatase 70 Total Protein 7.5 Albumin 4.1 Impressions: Chest X-Ray 01/23/20 15:44 IMPRESSION: No significant interval change. Bibasilar pleural and parenchymal scarring is stable. No acute cardiopulmonary disease. Assessment and Plan - Diagnosis (1) Sickle cell anemia with pain Is this a current diagnosis for this admission?: Yes Plan: -diagnosed case of sickle cell anemia with frequent admission due to pain - presented with typical pain crises symptoms - came to the ED 01/22/20 with same symptoms, pain meds and was sent home - start IV fluids - dilaudid and methadone for pain -Incentive spirometry, oxygen support -Continue hydroxyurea and folic acid (2) Pneumonia Qualifiers: Pneumonia type: due to unspecified organism Laterality: unspecified laterality Lung location: lower lobe of lung Qualified Code(s): J18.9 - Pneumonia, unspecified organism Is this a current diagnosis for this admission?: Yes Plan: -Close outpatient with pain with low-grade fever, cough -Chest x-ray showed linear bibasilar opacities may be related to atelectasis or developing pneumonic process -WBC count mildly elevated to 12.5 then 10.5 -Positive bibasal crackles -He has a history of sickle cell and previous pneumonias and this may very well be due to scarring from previous pneumonias but since he had low-grade fever and cough COVID testing was ordered. Dr. Stapleton agreed with testing him. 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 Is this a current diagnosis for this admission?: Yes Plan: - on baclofen (4) Suspected COVID-19 virus infection Is this a current diagnosis for this admission?: Yes Plan: -Has bibasilar opacities on chest x-ray which may be related to atelectasis or developing pneumonic process -COVID test pending - Time Time Spent with patient: 35 or more minutes Medications reviewed and adjusted accordingly: Yes Anticipated Discharge Disposition: Home, Self Care Anticipated Discharge Timeframe: to be determined - Inpatient Certification Based on my medical assessment, after consideration of the patient's co morbidities, presenting symptoms, or acuity I expect that the services needed warrant INPATIENT care.: Yes I certify that my determination is in accordance with my understanding of Medicare's requirements for reasonable and necessary INPATIENT services [42 CFR 412.3e].: Yes Medical Necessity: Need for Pain Control
[2020-01-23] MEDS: HYDROMORPHONE HCL INJ/PF 2 MG/ML AMPULE IV SCH ×2 (19:59→22:27)
[2020-01-23] MEDS: DIPHENHYDRAMINE HCL 50 MG/ML VIAL IV PRN (19:59)
[2020-01-23 20:08] LABS: APPEARANCE,URINE CLEAR; BILIRUBIN,URINE NEGATIVE (NEGATIVE); COLOR,URINE YELLOW; GLUCOSE, URINE NEGATIVE (NEGATIVE); KETONES,URINE NEGATIVE (NEGATIVE); LEUKOCYTE ESTERASE,URINE NEGATIVE (NEGATIVE); NITRITE,URINE NEGATIVE (NEGATIVE); PROTEIN,URINE NEGATIVE (NEGATIVE); URINE SPECIFIC GRAVITY 1.005; UROBILINOGEN,URINE NEGATIVE mg/dL (<2.0)
[2020-01-23] MEDS: HEPARIN SOD (PORCINE) 5,000 UNIT/ML 1 ML VIAL SUBCUT SCH (22:28)
[2020-01-23] MEDS: METHADONE HCL 10 MG TABLET PO SCH (22:28)
--- NOTE | 2020-01-23 22:34 | PDOC CONSULTATION ---
Consultation Consult Date: 01/23/20 Attending physician:: KENDELL GERMAIN Provider Consulted: BETH STAPLETON Consult reason:: Sickle cell crisis, pneumonia History of Present Illness Admission Date/PCP: 01/23/20 18:38 BETH STAPLETON MD Patient complains of: SOB. CP History of Present Illness: MARISA GARBER is a 39 year old male w/ known h/o sickle cell disease. This consulation was done w/ COVID restrictions via Telehealth, the pt understood the restrictions and agreed to go forward w/ consultation. He has SOB/CP, came to ED yesterday similar c/o and we attempted to treat as outpt w. oral atbx, he received hydration and pain meds thru the ED but unfortunately the SOB/HERNANDEZ AND pain worsened and pt came to ED, upon present pt was febrile, tachycardic and SOB. CXR showed opacity, pt currently POI for COVID. Past Medical History Cardiac Medical History: Denies: Atrial Fibrillation, Congestive Heart Failure, Coronary Artery Disease, DVT, Myocardial Infarction, Hyperlipidema, Hypertension, Peripheral Vascular Disease, Pulmonary Embolism Pulmonary Medical History: Denies: Asthma, Bronchitis, Chronic Obstructive Pulmonary Disease (COPD), Pneumonia, Respiratory Failure, Tuberculosis Neurological Medical History: Denies: Migraine, Seizures Endocrine Medical History: Denies: Diabetes Mellitus Type 1, Diabetes Mellitus Type 2, Hyperthyroidism, Hypothyroidism GI Medical History: Denies: Cirrhosis, Crohn's Disease, Gastroesophageal Reflux Disease, Hepatitis, Ulcerative Colitis Musculoskeltal Medical History: Denies: Arthritis, Gout Skin Medical History: Denies: Eczema, Psoriasis Psychiatric Medical History: Reports: Depression Hematology: Reports: Anemia, Sickle Cell Disease Denies: Hemophilia, Bleeding Tendencies Past Surgical History Past Surgical History: Reports: Appendectomy, Vascular Surgery - L port placement, Other - Port placement Social History Smoking Status: Former Smoker Frequency of Alcohol Use: None Hx Recreational Drug Use: No Drugs: None Hx Prescription Drug Abuse: No - Advance Directive Resuscitation Status: Full Code Family History Family History: Reviewed & Not Pertinent, Hypertension, Other - Sickle cell anemia Parental Family History Reviewed: Yes Children Family History Reviewed: Yes Sibling(s) Family History Reviewed.: Yes Medication/Allergy Home Medications: Oxycodone HCl [Oxy-Ir 5 mg Tablet] 10 mg PO Q4HP PRN 02/19/19 Ibuprofen [Ibu] 600 mg PO Q8HP PRN 10/17/19 Docusate Sodium [Colace 100 mg Capsule] 100 mg PO BID capsule 10/26/19 Folic Acid [Folvite 1 mg Tablet] 1 mg PO DAILY tablet 10/26/19 Hydroxyurea [Hydrea 500 mg Capsule] 1,500 mg PO DAILY capsule 10/26/19 Methadone HCl [Dolophine 10 mg Tablet] 5 mg PO Q8 tablet 10/26/19 Baclofen [Baclofen 10 mg Tablet] 10 mg PO BIDP PRN 12/03/19 Melatonin [Melatonin 5 mg Tablet] 10 mg PO HSP PRN 12/03/19 Pseudoephedrine HCl [Sudafed 30 mg Tablet] 30 mg PO Q6HP PRN 12/03/19 Tobramycin Sulfate/Dexameth [Tobradex Oph Drops 2.5 ml] 1 drop OU Q6 bottle 12/14/19 Azithromycin [Zithromax 250 mg Tablet] 250 mg PO DAILY #4 tablet 01/23/20 Allergies/Adverse Reactions: famotidine [From Pepcid] Allergy (Severe, Verified 11/02/19 11:45) Anaphylaxis ketorolac tromethamine [From Toradol] Allergy (Severe, Verified 11/02/19 11:45) levofloxacin [From Levaquin] Allergy (Severe, Verified 11/02/19 11:45) meperidine HCl [From Demerol] Allergy (Severe, Verified 11/02/19 11:45) morphine [Morphine] Allergy (Severe, Verified 11/02/19 11:45) tramadol HCl [From Ultram] Allergy (Severe, Verified 11/02/19 11:45) amoxicillin [Amoxicillin] Allergy (Verified 11/02/19 11:45) fentanyl [Fentanyl] Allergy (Verified 11/02/19 11:45) latex [Latex] Allergy (Verified 11/02/19 11:45) ondansetron HCl [From Zofran] Allergy (Verified 11/02/19 11:45) Pork/Porcine Containing Products Allergy (Verified 11/02/19 11:45) promethazine Allergy (Verified 11/02/19 11:45) Review of Systems Constitutional: ABSENT: chills, fever(s), headache(s), weight gain, weight loss Eyes: ABSENT: visual disturbances Ears: ABSENT: hearing changes Cardiovascular: ABSENT: chest pain, dyspnea on exertion, edema, orthropnea, palpitations Respiratory: ABSENT: cough, hemoptysis Gastrointestinal: ABSENT: abdominal pain, constipation, diarrhea, hematemesis, hematochezia, nausea, vomiting Genitourinary: ABSENT: dysuria, hematuria Musculoskeletal: ABSENT: joint swelling Integumentary: ABSENT: rash, wounds Neurological: ABSENT: abnormal gait, abnormal speech, confusion, dizziness, focal weakness, syncope Psychiatric: ABSENT: anxiety, depression, homidical ideation, suicidal ideation Endocrine: ABSENT: cold intolerance, heat intolerance, polydipsia, polyuria Hematologic/Lymphatic: ABSENT: easy bleeding, easy bruising Physical Exam Vital Signs: Temp Pulse Resp BP Pulse Ox 98.9 F 91 16 159/89 H 98 01/23/20 22:04 01/23/20 22:04 01/23/20 22:04 01/23/20 22:04 01/23/20 22:04 Intake & Output 01/22/20 01/23/20 01/24/20 06:59 06:59 06:59 Intake Total 1999 Balance 1999 Weight 83.915 kg General appearance: PRESENT: no acute distress, well-developed, well-nourished Head exam: PRESENT: normocephalic Eye exam: ABSENT: scleral icterus Mouth exam: PRESENT: moist, tongue midline Neck exam: ABSENT: carotid bruit, JVD, lymphadenopathy, thyromegaly Respiratory exam: PRESENT: clear to auscultation anastasiya. ABSENT: rales, rhonchi, wheezes Cardiovascular exam: PRESENT: RRR. ABSENT: diastolic murmur, rubs, systolic murmur Pulses: PRESENT: normal dorsalis pedis pul Vascular exam: PRESENT: normal capillary refill GI/Abdominal exam: PRESENT: normal bowel sounds, soft. ABSENT: distended, guarding, mass, organolmegaly, rebound, tenderness Rectal exam: PRESENT: deferred Extremities exam: PRESENT: full ROM. ABSENT: calf tenderness, clubbing, pedal edema Neurological exam: PRESENT: alert, awake, oriented to person, oriented to place, oriented to time, oriented to situation, CN II-XII grossly intact. ABSENT: motor sensory deficit Psychiatric exam: PRESENT: appropriate affect, normal mood. ABSENT: homicidal ideation, suicidal ideation Skin exam: PRESENT: dry, intact, warm. ABSENT: cyanosis, rash Results Laboratory Results: 10/03/20 16:45 01/23/20 16:45 01/23/20 01/23/20 01/23/20 16:45 16:45 16:59 WBC 10.5 RBC 2.83 L Hgb 9.3 L Hct 26.7 L MCV 94 MCH 32.9 MCHC 34.8 RDW 20.2 H Plt Count 466 H Seg Neutrophils % Not Reportable Retic Count (auto) 10.68 H Sodium 139.2 Potassium 3.5 L Chloride 104 Carbon Dioxide 26 Anion Gap 9 BUN 8 Creatinine 0.70 Est GFR ( Amer) > 60 Glucose 137 H Lactic Acid 1.0 Calcium 8.9 Total Bilirubin 2.9 H AST 41 Alkaline Phosphatase 70 Total Protein 7.5 Albumin 4.1 Urine Color Urine Appearance Urine pH Ur Specific [place] Urine Protein Urine Glucose (UA) Urine Ketones Urine Blood Urine Nitrite Ur Leukocyte Esterase Urine WBC (Auto) 01/23/20 19:50 WBC RBC Hgb Hct MCV MCH MCHC RDW Plt Count Seg Neutrophils % Retic Count (auto) Sodium Potassium Chloride Carbon Dioxide Anion Gap BUN Creatinine Est GFR ( Amer) Glucose Lactic Acid Calcium Total Bilirubin AST Alkaline Phosphatase Total Protein Albumin Urine Color YELLOW Urine Appearance CLEAR Urine pH 7.0 Ur Specific [place] 1.005 Urine Protein NEGATIVE Urine Glucose (UA) NEGATIVE Urine Ketones NEGATIVE Urine Blood NEGATIVE Urine Nitrite NEGATIVE Ur Leukocyte Esterase NEGATIVE Urine WBC (Auto) 0 Impressions: Chest X-Ray 01/23/20 15:44 IMPRESSION: No significant interval change. Bibasilar pleural and parenchymal scarring is stable. No acute cardiopulmonary disease. Assessment & Plan - Diagnosis (1) Suspected COVID-19 virus infection Is this a current diagnosis for this admission?: Yes Plan: Rule out pending (2) Sickle cell anemia with pain Is this a current diagnosis for this admission?: Yes Plan: Pain meds IV cont, con't other supportive meds (3) Pneumonia Qualifiers: Pneumonia type: due to unspecified organism Laterality: unspecified laterality Lung location: lower lobe of lung Qualified Code(s): J18.9 - Pneumonia, unspecified organism Is this a current diagnosis for this admission?: Yes Plan: Agree w/ atbx coverage, cont' per hospitalist team
[2020-01-23] MEDS ORDERED: DOXYCYCLINE HYCLATE INJ 100 MG VIAL ONE (22:46)
[2020-01-23] MEDS ORDERED: AZITHROMYCIN INJ 500 MG VIAL IV ONE (22:46)
[2020-01-23] MEDS: RINGERS SOLUTION,LACTATED 1,000 ML IV PRN (22:50)
[2020-01-23] MEDS: DOXYCYCLINE HYCLATE 100 MG in DEXTROSE 5%-WATER 250 ML IV SCH (23:13)
[2020-01-23] MEDS: AZITHROMYCIN 500 MG in DEXTROSE 5%-WATER 250 ML IV SCH (23:14)
[2020-01-24] MEDS: TOBRAMYCIN SULFATE/DEXAMETH OPH SUSP 2.5 ML OU SCH ×5 (00:19→17:06)
[2020-01-24] MEDS: HYDROMORPHONE HCL INJ/PF 2 MG/ML AMPULE IV SCH ×13 (02:00→23:50)
[2020-01-24] MEDS ORDERED: TOBRAMYCIN SULFATE/DEXAMETH OPH SUSP 2.5 ML ONE (03:05)
[2020-01-24] MEDS: METHADONE HCL 10 MG TABLET PO SCH ×3 (05:58→21:54)
[2020-01-24] MEDS: HEPARIN SOD (PORCINE) 5,000 UNIT/ML 1 ML VIAL SUBCUT SCH ×3 (05:59→21:55)
[2020-01-24] MEDS: DIPHENHYDRAMINE HCL 50 MG/ML VIAL IV PRN ×6 (06:01→21:54)
[2020-01-24 06:15] LABS: HEMATOCRIT 25.4 % (37.9-51.0); HEMOGLOBIN 9.1 g/dL (13.5-17.0); MEAN CORPUSCULAR HEMOGLOBIN 33.9 pg (27.0-33.4); MEAN CORPUSCULAR VOLUME 94 fl (80-97); PLATELET COUNT 437 10^3/uL (150-450); RED CELL DISTRIBUTION WIDTH 19.7 % (11.5-14.0)
[2020-01-24 06:32] LABS: ALKALINE PHOSPHATASE 70 U/L (38-126); ANION GAP 8 (5-19); ASPARTATE AMINO TRANSFERASE 33 U/L (17-59); BILIRUBIN,DIRECT 0.4 mg/dL (0.0-0.4); BILIRUBIN,TOTAL 1.6 mg/dL (0.2-1.3); BLOOD UREA NITROGEN 6 mg/dL (7-20); CALCIUM 8.7 mg/dL (8.4-10.2); CARBON DIOXIDE 27 mmol/L (22-30); CHLORIDE 105 mmol/L (98-107); GLUCOSE 119 mg/dL (75-110); POTASSIUM 3.9 mmol/L (3.6-5.0); TOTAL PROTEIN 7.4 g/dL (6.3-8.2)
[2020-01-24 07:14] LABS: ABSOLUTE LYMPHOCYTES# (MANUAL) 2.2 10^3/uL (0.5-4.7); ABSOLUTE MONOCYTES # (MANUAL) 0.6 10^3/uL (0.1-1.4); BASOPHILS % (MANUAL) 0 % (0-2); EOSINOPHILS % (MANUAL) 1 % (0-6); LYMPHOCYTES % (MANUAL) 27 % (13-45); MONOCYTES % (MANUAL) 7 % (3-13); NUCLEATED RED BLOOD CELLS 5 /100 WBC (0); SEGMENTED NEUTROPHILS % (MAN) 65 % (42-78); TOTAL CELLS COUNTED 100
[2020-01-24 07:19] LABS: SICKLE RED CELLS 2+
[2020-01-24 07:20] LABS: ANISOCYTOSIS 2+; TARGET CELLS 1+
[2020-01-24 07:21] LABS: BURR CELLS SLIGHT; PLATELET COMMENT ADEQUATE; POLYCHROMASIA 1+
[2020-01-24 07:22] LABS: OVALOCYTES 1+
[2020-01-24] MEDS: FOLIC ACID 1 MG TABLET PO SCH (10:01)
[2020-01-24] MEDS: DOCUSATE SODIUM 100 MG CAPSULE PO SCH ×2 (10:01→17:55)
[2020-01-24] MEDS: RINGERS SOLUTION,LACTATED 1,000 ML IV PRN ×2 (10:01→18:30)
[2020-01-24] MEDS: DOXYCYCLINE HYCLATE 100 MG in DEXTROSE 5%-WATER 250 ML IV SCH ×2 (10:24→21:30)
[2020-01-24] MEDS: HYDROXYUREA 500 MG CAPSULE PO SCH (10:24)
[2020-01-24] MEDS ORDERED: SENNOSIDES/DOCUSATE 8.6-50 MG 1 EACH TABLET PO PRN (11:00)
[2020-01-24] MEDS ORDERED: POLYETHYLENE GLYCOL 3350 POWDER 17 GM/1 PACKET PO PRN (11:00)
--- NOTE | 2020-01-24 12:44 | PDOC PROGRESS REPORT ---
Subjective Subjective:: Telehealth visit due to COVID restrictions. Pt seems to have pain controlled. I added KPAD for comfort and bowel regimen today Reason For Visit: SICKLE CELL CRISIS Physical Exam Vital Signs: Temp Pulse Resp BP Pulse Ox 98.2 F 76 16 123/80 99 01/24/20 11:55 01/24/20 11:55 01/24/20 11:55 01/24/20 11:55 01/24/20 11:55 Intake & Output 01/23/20 01/24/20 01/25/20 06:59 06:59 06:59 Intake Total 4080 800 Output Total 1800 0 Balance 2280 800 Weight 87.7 kg Results Laboratory Results: 01/24/20 05:45 01/24/20 05:45 01/23/20 01/23/20 01/23/20 16:45 16:45 16:59 WBC 10.5 RBC 2.83 L Hgb 9.3 L Hct 26.7 L MCV 94 MCH 32.9 MCHC 34.8 RDW 20.2 H Plt Count 466 H Seg Neutrophils % Not Reportable Retic Count (auto) 10.68 H Sodium 139.2 Potassium 3.5 L Chloride 104 Carbon Dioxide 26 Anion Gap 9 BUN 8 Creatinine 0.70 Est GFR ( Amer) > 60 Glucose 137 H Lactic Acid 1.0 Calcium 8.9 Total Bilirubin 2.9 H AST 41 Alkaline Phosphatase 70 Total Protein 7.5 Albumin 4.1 Urine Color Urine Appearance Urine pH Ur Specific [place] Urine Protein Urine Glucose (UA) Urine Ketones Urine Blood Urine Nitrite Ur Leukocyte Esterase Urine WBC (Auto) 01/23/20 01/24/20 01/24/20 19:50 05:45 05:45 WBC 8.0 RBC 2.70 L Hgb 9.1 L Hct 25.4 L MCV 94 MCH 33.9 H MCHC 36.0 RDW 19.7 H Plt Count 437 Seg Neutrophils % Not Reportable Retic Count (auto) Sodium 140.0 Potassium 3.9 Chloride 105 Carbon Dioxide 27 Anion Gap 8 BUN 6 L Creatinine 0.65 Est GFR ( Amer) > 60 Glucose 119 H Lactic Acid Calcium 8.7 Total Bilirubin 1.6 H AST 33 Alkaline Phosphatase 70 Total Protein 7.4 Albumin 4.0 Urine Color YELLOW Urine Appearance CLEAR Urine pH 7.0 Ur Specific [place] 1.005 Urine Protein NEGATIVE Urine Glucose (UA) NEGATIVE Urine Ketones NEGATIVE Urine Blood NEGATIVE Urine Nitrite NEGATIVE Ur Leukocyte Esterase NEGATIVE Urine WBC (Auto) 0 Impressions: Chest X-Ray 01/23/20 15:44 IMPRESSION: No significant interval change. Bibasilar pleural and parenchymal scarring is stable. No acute cardiopulmonary disease. Assessment & Plan - Diagnosis (1) Suspected COVID-19 virus infection Is this a current diagnosis for this admission?: Yes Plan: Awaiting testing (2) Sickle cell anemia with pain Is this a current diagnosis for this admission?: Yes Plan: Cont current regimen (3) Pneumonia Qualifiers: Qualified Code(s): J18.9 - Pneumonia, unspecified organism Is this a current diagnosis for this admission?: Yes Plan: Cont atbx - Time Time Spent with patient: 15-24 minutes
--- NOTE | 2020-01-24 13:23 | PDOC PROGRESS REPORT ---
Subjective Progress Note for:: 01/24/20 Subjective:: PARMINDER GARBER is a 39 year old male, diagnosed case of sickle cell, frequent admissions due to sickle cell pain crisis, who came back to the ED today due to pain generalized cough and shortness of breath. He was seen in the emergency room yesterday with typical sickle cell pain associated with shortness of breath. CBC was done which showed WBC count of 12.4, hemoglobin 9.5, reticulocyte count 0.28. Chest x-ray showed linear bibasilar opacities may be related to atelectasis or developing pneumonic process. He apparently had a syncopal episode have after having a chest x-ray. He was given IV fluids, Dilaudid, oxygen in the emergency room. Dr. Medellin was called by the ED provider yesterday who recommended doxycycline and azithromycin. Patient was t hen sent home. At home he continued to have shortness of breath, cough,, increasing pain hence he came back to the ED. In the emergency room WBC count 10.5, globin 9.3, reticulocyte count 0.302. Repeat chest x-ray showed bibasilar pleural and parenchymal scarring stable. Dr. Medellin was consulted who advised that the patient be admitted for sickle cell pain. He also agreed he that the patient needs to be tested for COVID. D2 Hospital stay 01/24/20. He was seen and examined at bedside. He reports that his pain is a little better today compared to yesterday. He has minimal cough but no SOB. He remains afebrile, fair appetite. He is currently on dilaudid 3 mg q2 and methadone [address] Medellin. COVID test pending. Labs are stable today. Reason For Visit: SICKLE CELL CRISIS Physical Exam Vital Signs: Temp Pulse Resp BP Pulse Ox 98.2 F 76 16 123/80 99 01/24/20 11:55 01/24/20 11:55 01/24/20 11:55 01/24/20 11:55 01/24/20 11:55 Intake & Output 01/23/20 01/24/20 01/25/20 06:59 06:59 06:59 Intake Total 4080 1050 Output Total 1800 0 Balance 2280 1050 Weight 87.7 kg General appearance: PRESENT: no acute distress, cooperative Head exam: PRESENT: atraumatic, normocephalic Eye exam: PRESENT: EOMI, PERRLA Mouth exam: PRESENT: moist Neck exam: PRESENT: full ROM Respiratory exam: PRESENT: clear to auscultation anastasiya, symmetrical, unlabored. ABSENT: tachypnea Cardiovascular exam: PRESENT: RRR, +S1, +S2 Pulses: PRESENT: +2 pedal pulses bilateral GI/Abdominal exam: PRESENT: normal bowel sounds, soft. ABSENT: rebound, tenderness Extremities exam: PRESENT: full ROM Musculoskeletal exam: PRESENT: full ROM Neurological exam: PRESENT: alert, awake, oriented to person, oriented to place, oriented to time, oriented to situation Psychiatric exam: PRESENT: flat affect Skin exam: PRESENT: normal color Results Laboratory Results: 01/24/20 05:45 01/24/20 05:45 01/23/20 01/23/20 01/23/20 16:45 16:45 16:59 WBC 10.5 RBC 2.83 L Hgb 9.3 L Hct 26.7 L MCV 94 MCH 32.9 MCHC 34.8 RDW 20.2 H Plt Count 466 H Seg Neutrophils % Not Reportable Retic Count (auto) 10.68 H Sodium 139.2 Potassium 3.5 L Chloride 104 Carbon Dioxide 26 Anion Gap 9 BUN 8 Creatinine 0.70 Est GFR ( Amer) > 60 Glucose 137 H Lactic Acid 1.0 Calcium 8.9 Total Bilirubin 2.9 H AST 41 Alkaline Phosphatase 70 Total Protein 7.5 Albumin 4.1 Urine Color Urine Appearance Urine pH Ur Specific [place] Urine Protein Urine Glucose (UA) Urine Ketones Urine Blood Urine Nitrite Ur Leukocyte Esterase Urine WBC (Auto) 01/23/20 01/24/20 01/24/20 19:50 05:45 05:45 WBC 8.0 RBC 2.70 L Hgb 9.1 L Hct 25.4 L MCV 94 MCH 33.9 H MCHC 36.0 RDW 19.7 H Plt Count 437 Seg Neutrophils % Not Reportable Retic Count (auto) Sodium 140.0 Potassium 3.9 Chloride 105 Carbon Dioxide 27 Anion Gap 8 BUN 6 L Creatinine 0.65 Est GFR ( Amer) > 60 Glucose 119 H Lactic Acid Calcium 8.7 Total Bilirubin 1.6 H AST 33 Alkaline Phosphatase 70 Total Protein 7.4 Albumin 4.0 Urine Color YELLOW Urine Appearance CLEAR Urine pH 7.0 Ur Specific [place] 1.005 Urine Protein NEGATIVE Urine Glucose (UA) NEGATIVE Urine Ketones NEGATIVE Urine Blood NEGATIVE Urine Nitrite NEGATIVE Ur Leukocyte Esterase NEGATIVE Urine WBC (Auto) 0 Impressions: Chest X-Ray 01/23/20 15:44 IMPRESSION: No significant interval change. Bibasilar pleural and parenchymal scarring is stable. No acute cardiopulmonary disease. Assessment and Plan - Diagnosis (1) Sickle cell anemia with pain Is this a current diagnosis for this admission?: Yes Plan: -diagnosed case of sickle cell anemia with frequent admission due to pain - presented with typical pain crises symptoms - came to the ED 01/22/20 with same symptoms, pain meds given and was sent home - continue IV fluids - dilaudid and methadone for pain -Incentive spirometry, oxygen support -Continue hydroxyurea and folic acid - bowel regimen ordered (2) Pneumonia Qualifiers: Pneumonia type: due to unspecified organism Laterality: unspecified laterality Lung location: lower lobe of lung Qualified Code(s): J18.9 - Pneumonia, unspecified organism Is this a current diagnosis for this admission?: Yes Plan: -Close outpatient with pain with low-grade fever, cough -Chest x-ray showed linear bibasilar opacities may be related to atelectasis or developing pneumonic process -WBC count mildly elevated to 12.5 then 10.5 -Positive bibasal crackles -He has a history of sickle cell and previous pneumonias and this may very well be due to scarring from previous pneumonias but since he had low-grade fever and cough COVID testing was ordered. Dr. Medellin agreed with testing him. -continue doxycycline IV and azithromycin IV day2 -Blood culture pending -COVID test pending -Continue O2 support, incentive spirometry (3) Priapism due to sickle cell disease Is this a current diagnosis for this admission?: Yes Plan: - on baclofen (4) Suspected COVID-19 virus infection Is this a current diagnosis for this admission?: Yes Plan: -Has bibasilar opacities on chest x-ray which may be related to atelectasis or developing pneumonic process -COVID test pending - Plan Summary Summary: Parminder Garber 39/M, diagnosed case of sickle cell anemia, history of acute chest syndrome, frequent admissions due to sickle cell pain, who came in the ED 01/22/2020 due to increased pain cough and shortness of breath. He was initially seen in the emergency room and was given IV fluids pain medications and was started on a azithromycin and doxycycline. He also apparently had an syncopal episode when he was in the ED. He eventually improved after IV fluids and pain medications and he was sent home. At home he continued to have pain with cough and low-grade fever. He came back to the ED yesterday and Dr. Contreras advised him to be admitted for management of pain. Chest x-ray showed bibasilar opacities which were concerning for pneumonia versus scarring from previous pneumonias. COVID test was ordered. He was started on a azithromycin and doxycycline IV, 3 mg Dilaudid every 2 hours, methadone 5 mg every [address] Medellin's recommendation. He was also started on oxygen support, incentive spirometry. Home medications were resumed. He will likely stay here for a couple of days as his usual length of stay in the hospital is 8 days. - Time Time Spent with patient: 25-34 minutes Anticipated Discharge Disposition: Home, Self Care Anticipated Discharge Timeframe: to be determined
[2020-01-24] MEDS: AZITHROMYCIN 500 MG in DEXTROSE 5%-WATER 250 ML IV SCH (21:30)
[2020-01-25] MEDS: DIPHENHYDRAMINE HCL 50 MG/ML VIAL IV PRN ×5 (02:00→20:01)
[2020-01-25] MEDS: HYDROMORPHONE HCL INJ/PF 2 MG/ML AMPULE IV SCH ×11 (02:05→22:16)
[2020-01-25] MEDS: RINGERS SOLUTION,LACTATED 1,000 ML IV PRN (04:00)
[2020-01-25] MEDS: TOBRAMYCIN SULFATE/DEXAMETH OPH SUSP 2.5 ML OU SCH ×4 (05:20→18:19)
[2020-01-25] MEDS: METHADONE HCL 10 MG TABLET PO SCH ×3 (06:00→22:16)
[2020-01-25 06:46] LABS: HEMOGLOBIN 8.8 g/dL (13.5-17.0); MEAN CORPUSCULAR HEMOGLOBIN 33.1 pg (27.0-33.4); MEAN CORPUSCULAR HGB CONC 35.1 g/dL (32.0-36.0); MEAN CORPUSCULAR VOLUME 94 fl (80-97); PLATELET COUNT 439 10^3/uL (150-450); RED BLOOD COUNT 2.65 10^6/uL (4.35-5.55); RED CELL DISTRIBUTION WIDTH 18.8 % (11.5-14.0)
[2020-01-25 07:06] LABS: ALBUMIN 3.7 g/dL (3.5-5.0); ALKALINE PHOSPHATASE 72 U/L (38-126); ANION GAP 9 (5-19); ASPARTATE AMINO TRANSFERASE 32 U/L (17-59); BILIRUBIN,DIRECT 0.3 mg/dL (0.0-0.4); BILIRUBIN,TOTAL 1.5 mg/dL (0.2-1.3); BLOOD UREA NITROGEN 7 mg/dL (7-20); CALCIUM 8.8 mg/dL (8.4-10.2); CARBON DIOXIDE 29 mmol/L (22-30); CHLORIDE 100 mmol/L (98-107); GLUCOSE 112 mg/dL (75-110); POTASSIUM 4.3 mmol/L (3.6-5.0); TOTAL PROTEIN 6.9 g/dL (6.3-8.2)
[2020-01-25 07:46] LABS: ABSOLUTE LYMPHOCYTES# (MANUAL) 1.9 10^3/uL (0.5-4.7); ABSOLUTE MONOCYTES # (MANUAL) 0.7 10^3/uL (0.1-1.4); BASOPHILS % (MANUAL) 1 % (0-2); EOSINOPHILS % (MANUAL) 4 % (0-6); LYMPHOCYTES % (MANUAL) 26 % (13-45); MONOCYTES % (MANUAL) 10 % (3-13); NUCLEATED RED BLOOD CELLS 4 /100 WBC (0); SEGMENTED NEUTROPHILS % (MAN) 58 % (42-78); TOTAL CELLS COUNTED 100
[2020-01-25 07:49] LABS: ANISOCYTOSIS 2+
[2020-01-25 07:52] LABS: OVALOCYTES 2+; PLATELET COMMENT ADEQUATE; POIKILOCYTOSIS 2+; POLYCHROMASIA 2+; SICKLE RED CELLS 1+; TARGET CELLS 1+; TEAR DROP CELLS 2+
[2020-01-25] MEDS ORDERED: INFLUENZA QUAD (6MOS+) 2020-21 VAC 0.5 ML SYR IM ONE (08:00)
--- NOTE | 2020-01-25 08:17 | PDOC PROGRESS REPORT ---
Subjective Progress Note for:: 01/25/20 Subjective:: Visit done by telehealth because of COVID restrictions, no acute events overnight, patient still disappointed that he is on the COVID floor, otherwise pain seems to be controlled. Reason For Visit: SICKLE CELL CRISIS Physical Exam Vital Signs: Temp Pulse Resp BP Pulse Ox 97.5 F 80 16 157/96 H 100 01/24/20 23:29 01/25/20 07:00 01/24/20 23:29 01/24/20 23:29 01/24/20 23:29 Intake & Output 01/24/20 01/25/20 01/26/20 06:59 06:59 06:59 Intake Total 4080 4830 Output Total 1800 2400 Balance 2280 2430 Weight 87.7 kg 93.5 kg General appearance: PRESENT: no acute distress, well-developed, well-nourished Head exam: PRESENT: atraumatic, normocephalic Eye exam: PRESENT: conjunctiva pink, EOMI, PERRLA. ABSENT: scleral icterus Ear exam: PRESENT: normal external ear exam Mouth exam: PRESENT: moist, tongue midline Neck exam: ABSENT: carotid bruit, JVD, lymphadenopathy, thyromegaly Respiratory exam: PRESENT: clear to auscultation anastasiya. ABSENT: rales, rhonchi, wheezes Cardiovascular exam: PRESENT: RRR. ABSENT: diastolic murmur, rubs, systolic murmur Pulses: PRESENT: normal dorsalis pedis pul Vascular exam: PRESENT: normal capillary refill GI/Abdominal exam: PRESENT: normal bowel sounds, soft. ABSENT: distended, guarding, mass, organolmegaly, rebound, tenderness Rectal exam: PRESENT: deferred Extremities exam: PRESENT: full ROM. ABSENT: calf tenderness, clubbing, pedal edema Neurological exam: PRESENT: alert, awake, oriented to person, oriented to place, oriented to time, oriented to situation, CN II-XII grossly intact. ABSENT: motor sensory deficit Psychiatric exam: PRESENT: appropriate affect, normal mood. ABSENT: homicidal ideation, suicidal ideation Skin exam: PRESENT: dry, intact, warm. ABSENT: cyanosis, rash Results Laboratory Results: 01/25/20 05:50 01/25/20 05:50 01/25/20 01/25/20 05:50 05:50 WBC 7.0 RBC 2.65 L Hgb 8.8 L Hct 25.0 L MCV 94 MCH 33.1 MCHC 35.1 RDW 18.8 H Plt Count 439 Seg Neutrophils % Not Reportable Sodium 137.9 Potassium 4.3 Chloride 100 Carbon Dioxide 29 Anion Gap 9 BUN 7 Creatinine 0.59 Est GFR ( Amer) > 60 Glucose 112 H Calcium 8.8 Total Bilirubin 1.5 H AST 32 Alkaline Phosphatase 72 Total Protein 6.9 Albumin 3.7 Impressions: Chest X-Ray 01/23/20 15:44 IMPRESSION: No significant interval change. Bibasilar pleural and parenchymal scarring is stable. No acute cardiopulmonary disease. Assessment & Plan - Diagnosis (1) Suspected COVID-19 virus infection Is this a current diagnosis for this admission?: Yes Plan: COVID test is now negative, asked nursing to work on getting him off that floor. (2) Sickle cell anemia with pain Is this a current diagnosis for this admission?: Yes Plan: Continue with supportive care with current IV fluids and pain medication (3) Pneumonia Qualifiers: Pneumonia type: due to unspecified organism Laterality: unspecified laterality Lung location: lower lobe of lung Qualified Code(s): J18.9 - Pneumonia, unspecified organism Is this a current diagnosis for this admission?: Yes Plan: Continue with current antibiotic profile - Time Time Spent with patient: 25-34 minutes
[2020-01-25] MEDS: DOXYCYCLINE HYCLATE 100 MG in DEXTROSE 5%-WATER 250 ML IV SCH (10:28)
[2020-01-25] MEDS: DOCUSATE SODIUM 100 MG CAPSULE PO SCH ×2 (10:28→18:19)
[2020-01-25] MEDS: FOLIC ACID 1 MG TABLET PO SCH (10:28)
[2020-01-25] MEDS: HYDROXYUREA 500 MG CAPSULE PO SCH (10:29)
[2020-01-25] MEDS: HEPARIN SOD (PORCINE) 5,000 UNIT/ML 1 ML VIAL SUBCUT SCH ×2 (14:00→22:17)
[2020-01-25 14:59] LABS: RETICULOCYTE COUNT (AUTO) 7.45 % (0.66-2.85)
--- NOTE | 2020-01-25 16:21 | PDOC PROGRESS REPORT ---
<KARINA BLACKBURN - Last Filed: 01/25/20 17:13> Subjective Progress Note for:: 01/25/20 Reason For Visit: SICKLE CELL CRISIS Physical Exam Vital Signs: Temp Pulse Resp BP Pulse Ox 97.7 F 78 18 131/87 H 100 01/25/20 10:00 01/25/20 07:56 01/25/20 07:56 01/25/20 07:56 01/25/20 07:56 Intake & Output 01/24/20 01/25/20 01/26/20 06:59 06:59 06:59 Intake Total 4080 4830 Output Total 1800 2400 Balance 2280 2430 Weight 87.7 kg 93.5 kg Results Laboratory Results: 01/25/20 05:50 01/25/20 05:50 01/25/20 01/25/20 01/25/20 05:50 05:50 05:50 WBC 7.0 RBC 2.65 L Hgb 8.8 L Hct 25.0 L MCV 94 MCH 33.1 MCHC 35.1 RDW 18.8 H Plt Count 439 Seg Neutrophils % Not Reportable Retic Count (auto) 7.45 H Sodium 137.9 Potassium 4.3 Chloride 100 Carbon Dioxide 29 Anion Gap 9 BUN 7 Creatinine 0.59 Est GFR ( Amer) > 60 Glucose 112 H Calcium 8.8 Total Bilirubin 1.5 H AST 32 Alkaline Phosphatase 72 Total Protein 6.9 Albumin 3.7 01/23/20 16:25 Throat Throat Culture - Final NORMAL [facility] Impressions: Chest X-Ray 01/23/20 15:44 IMPRESSION: No significant interval change. Bibasilar pleural and parenchymal scarring is stable. No acute cardiopulmonary disease. 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 Qualified Code(s): D58.2 - Other hemoglobinopathies Is this a current diagnosis for this admission?: Yes (3) Atelectasis Is this a current diagnosis for this admission?: Yes (4) Dyspnea Qualifiers: Dyspnea type: shortness of breath Qualified Code(s): R06.02 - Shortness of breath; R06.00 - Dyspnea, unspecified; R06.01 - Orthopnea Is this a current diagnosis for this admission?: Yes (5) Itching Is this a current diagnosis for this admission?: Yes (6) Joint pain Qualifiers: Joint pain location: unspecified Qualified Code(s): M25.50 - Pain in unspecified joint Is this a current diagnosis for this admission?: Yes (7) Methadone dependence Is this a current diagnosis for this admission?: Yes (8) Sickle cell anemia Qualifiers: Sickle-cell associated disorders: with unspecified crisis Qualified Code(s): D57.00 - Hb-SS disease with crisis, unspecified; D57.0 - Hb-SS disease with crisis - Plan Summary Summary: Parminder Cee 39/M, diagnosed case of sickle cell anemia, history of acute chest syndrome, frequent admissions due to sickle cell pain, who came in the ED 01/22/2020 due to increased pain cough and shortness of breath. He was initially seen in the emergency room and was given IV fluids pain medications and was started on a azithromycin and doxycycline. He also apparently had an syncopal episode when he was in the ED. He eventually improved after IV fluids and pain medications and he was sent home. At home he continued to have pain with cough and low-grade fever. He came back to the ED yesterday and Dr. Contreras advised him to be admitted for management of pain. Chest x-ray showed bibasilar opacities which were concerning for pneumonia versus scarring from previous pneumonias. COVID test was ordered. He was started on a azithromycin and doxycycline IV, 3 mg Dilaudid every 2 hours, methadone 5 mg every [address] Medellin's recommendation. He was also started on oxygen support, incentive spirometry. Home medications were resumed. He will likely stay here for a c ouple of days as his usual length of stay in the hospital is 8 days. - Time Time Spent with patient: 35 or more minutes Anticipated Discharge Disposition: Home, Self Care Anticipated Discharge Timeframe: within 48 hours <SHIRA KILPATRICK - Last Filed: 01/26/20 06:55> Subjective Progress Note for:: 01/25/20 Subjective:: PER Dr. Marquez progress note 01/24/2020 "PARMINDER CEE is a 39 year old male, diagnosed case of sickle cell, frequent admissions due to sickle cell pain crisis, who came back to the ED today due to pain generalized cough and shortness of breath. He was seen in the emergency room yesterday with typical sickle cell pain associated with shortness of breath. CBC was done which showed WBC count of 12.4, hemoglobin 9.5, reticulocyte count 0.28. Chest x-ray showed linear bibasilar opacities may be related to atelectasis or developing pneumonic process. He apparently had a syncopal episode have after having a chest x-ray. He was given IV fluids, Dilaudid, oxygen in the emergency room. Dr. Medellin was called by the ED provider yesterday who recommended doxycycline and azithromycin. Patient was then sent home. At home he continued to have shortness of breath, cough,, increasing pain hence he came back to the ED. In the emergency room WBC count 10.5, globin 9.3, reticulocyte count 0.302. Repeat chest x-ray showed bibasilar pleural and parenchymal scarring stable. Dr. Gamaliel teixeira was consulted who advised that the patient be admitted for sickle cell pain. He also agreed he that the patient needs to be tested for COVID. D2 Hospital stay 01/24/20. He was seen and examined at bedside. He reports that his pain is a little better today compared to yesterday. He has minimal cough but no SOB. He remains afebrile, fair appetite. He is currently on dilaudid 3 mg q2 and methadone [address] Medellin. COVID test pending. Labs are stable today." D3 Hospital stay 01/25/2020: Patient was seen on morning rounds. He is resting in bed. He complains of diffuse muscular/joint pain that is intermittently improved with pain medications. Pain is described as diffuse ache and is rated 4/5 at this time. He reports anxiety assoicated with being on the "COVID unit". His COVID was negative, plan to transfer out of unit. He is tolerating PO intake. Otherwise denies fever, chills, CP, SOB, cough, abdominal pain, NVD, or lower extremity swelling. Discussed case with pt's nurse. Nurse states that patient c/o anxiety secondary to being on COVID unit. We will tranfer pt as soon as bed is available. No other concerns at this time. Reason For Visit: SICKLE CELL CRISIS, Generalized body aches/pain, generalized weakness Physical Exam Vital Signs: Temp Pulse Resp BP Pulse Ox 97.7 F 78 18 131/87 H 100 01/25/20 10:00 01/25/20 07:56 01/25/20 07:56 01/25/20 07:56 01/25/20 07:56 Intake & Output 01/24/20 01/25/20 01/26/20 06:59 06:59 06:59 Intake Total 4080 4830 Output Total 1800 2400 Balance 2280 2430 Weight 87.7 kg 93.5 kg General appearance: PRESENT: cooperative, mild distress Head exam: PRESENT: atraumatic, normocephalic Eye exam: PRESENT: EOMI, PERRLA Mouth exam: PRESENT: moist, tongue midline Neck exam: PRESENT: full ROM Respiratory exam: PRESENT: clear to auscultation anastasiya, symmetrical, unlabored. ABSENT: tachypnea Cardiovascular exam: PRESENT: RRR, rubs, +S2. ABSENT: diastolic murmur, systolic murmur Pulses: PRESENT: +2 pedal pulses bilateral GI/Abdominal exam: PRESENT: normal bowel sounds, soft. ABSENT: distended, firm, guarding, tenderness Rectal exam: PRESENT: deferred Extremities exam: PRESENT: full ROM. ABSENT: clubbing, pedal edema Musculoskeletal exam: PRESENT: ambulatory, full ROM. ABSENT: deformity, dislocation Neurological exam: PRESENT: alert, awake, oriented to person, oriented to place, oriented to time, oriented to situation, CN II-XII grossly intact. ABSENT: altered, motor sensory deficit Psychiatric exam: PRESENT: anxious Skin exam: PRESENT: dry, intact, warm. ABSENT: rash Results Laboratory Results: 01/25/20 05:50 01/25/20 05:50 01/25/20 01/25/20 01/25/20 05:50 05:50 05:50 WBC 7.0 RBC 2.65 L Hgb 8.8 L Hct 25.0 L MCV 94 MCH 33.1 MCHC 35.1 RDW 18.8 H Plt Count 439 Seg Neutrophils % Not Reportable Retic Count (auto) 7.45 H Sodium 137.9 Potassium 4.3 Chloride 100 Carbon Dioxide 29 Anion Gap 9 BUN 7 Creatinine 0.59 Est GFR ( Amer) > 60 Glucose 112 H Calcium 8.8 Total Bilirubin 1.5 H AST 32 Alkaline Phosphatase 72 Total Protein 6.9 Albumin 3.7 01/23/20 16:25 Throat Throat Culture - Final NORMAL [facility] Impressions: Chest X-Ray 01/23/20 15:44 IMPRESSION: No significant interval change. Bibasilar pleural and parenchymal scarring is stable. No acute cardiopulmonary disease. Assessment and Plan - Diagnosis (1) Sickle cell anemia with pain Is this a current diagnosis for this admission?: Yes Plan: Long standing history of sickle cell anemia with frequent admission due to pain. Initially seen on 01/22/20 with same symptoms, pain meds given and was sent home; returned to ED 24 hours later and was admitted for tx. Patient is stable at this time, with pain controlled with current treatment regimen. Case discussed with Dr. Medellin on the phone. He is following the patient via tele med. Notes reviewed. -On CBC and CMP patient appears stable. Continue to monitor daily. Consider transitioning to outpatient therapy at infusion center. -Continue IV Fluids. He is tolerating PO intake without difficulty. Emphasized the importance of both IV and PO hydration. -Continue with dilaudid and methadone for pain as advised by Dr. Medellin -Continue incentive spirometry as to decrease risk of acute chest syndrome. -95% O2 sat on room air, will remove NC at this time. Monitor room air O2 sat with vitals q4 hours. -Continue hydroxyurea and folic acid -Continue Bowel regimine as advised by Dr. Medellin (2) Pneumonia Qualifiers: Pneumonia type: due to unspecified organism Laterality: unspecified laterality Lung location: lower lobe of lung Qualified Code(s): J18.9 - Pneumonia, unspecified organism Is this a current diagnosis for this admission?: Yes Plan: Pt historically c/o cough and SOB. Chest x-ray 01/23/20 showed linear bibasilar opacities may be related to atelectasis or developing pneumonic process -WBC trended downward 12 -? 10.5 -> 7.0 today. -Positive bibasal crackles -continue doxycycline IV and azithromycin IV day3 -Blood culture with no growth in 24 hours -COVID negative: Initially tested as he had low grade fever and cough. -95% O2 sat on room air. Stop O2 support. 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 Historically treated with Baclofen -Resume home medications. (4) Suspected COVID-19 virus infection Is this a current diagnosis for this admission?: Yes Plan: CXR 01/23/20 bibasilar opacities, which may be related to atelectasis or developing pneumonic process -COVID testing negative -Pt no longer IMCU, now telemetry - Time Time Spent with patient: 15-24 minutes Anticipated Discharge Timeframe: within 48 hours
[2020-01-25] MEDS ORDERED: RINGERS SOLUTION,LACTATED 1,000 ML IV PRN (17:14)
[2020-01-25] MEDS: AZITHROMYCIN 500 MG in DEXTROSE 5%-WATER 250 ML IV SCH (22:15)
[2020-01-26] MEDS: HYDROMORPHONE HCL INJ/PF 2 MG/ML AMPULE IV SCH ×12 (00:23→22:06)
[2020-01-26] MEDS: DIPHENHYDRAMINE HCL 50 MG/ML VIAL IV PRN ×5 (00:28→19:26)
[2020-01-26] MEDS: TOBRAMYCIN SULFATE/DEXAMETH OPH SUSP 2.5 ML OU SCH ×5 (00:28→17:18)
[2020-01-26] MEDS: DOXYCYCLINE HYCLATE 100 MG in DEXTROSE 5%-WATER 250 ML IV SCH ×2 (00:41→10:02)
[2020-01-26] MEDS: METHADONE HCL 10 MG TABLET PO SCH ×3 (06:20→22:05)
[2020-01-26] MEDS: HEPARIN SOD (PORCINE) 5,000 UNIT/ML 1 ML VIAL SUBCUT SCH ×3 (06:21→21:44)
[2020-01-26 07:05] LABS: HEMATOCRIT 23.3 % (37.9-51.0); HEMOGLOBIN 8.4 g/dL (13.5-17.0); MEAN CORPUSCULAR HEMOGLOBIN 33.7 pg (27.0-33.4); MEAN CORPUSCULAR HGB CONC 36.2 g/dL (32.0-36.0); MEAN CORPUSCULAR VOLUME 93 fl (80-97); PLATELET COUNT 465 10^3/uL (150-450); RED CELL DISTRIBUTION WIDTH 19.1 % (11.5-14.0); WHITE BLOOD COUNT 5.1 10^3/uL (4.0-10.5)
[2020-01-26 07:22] LABS: ALBUMIN 3.8 g/dL (3.5-5.0); ALKALINE PHOSPHATASE 93 U/L (38-126); ANION GAP 8 (5-19); ASPARTATE AMINO TRANSFERASE 29 U/L (17-59); BILIRUBIN,DIRECT 0.5 mg/dL (0.0-0.4); BILIRUBIN,TOTAL 2.7 mg/dL (0.2-1.3); BLOOD UREA NITROGEN 8 mg/dL (7-20); CALCIUM 8.8 mg/dL (8.4-10.2); CARBON DIOXIDE 30 mmol/L (22-30); CHLORIDE 101 mmol/L (98-107); GLUCOSE 126 mg/dL (75-110); POTASSIUM 4.1 mmol/L (3.6-5.0); TOTAL PROTEIN 6.9 g/dL (6.3-8.2)
[2020-01-26 07:49] LABS: ABSOLUTE MONOCYTES # (MANUAL) 0.3 10^3/uL (0.1-1.4); BASOPHILS % (MANUAL) 0 % (0-2); EOSINOPHILS % (MANUAL) 4 % (0-6); LYMPHOCYTES % (MANUAL) 39 % (13-45); MONOCYTES % (MANUAL) 5 % (3-13); NUCLEATED RED BLOOD CELLS 2 /100 WBC (0); SEGMENTED NEUTROPHILS % (MAN) 51 % (42-78); TOTAL CELLS COUNTED 100
[2020-01-26 07:50] LABS: ANISOCYTOSIS 2+
[2020-01-26 07:51] LABS: OVALOCYTES 2+; POIKILOCYTOSIS 2+; POLYCHROMASIA 1+; SCHISTOCYTES 1+; SICKLE RED CELLS 2+; TARGET CELLS 2+
[2020-01-26 07:52] LABS: PLATELET COMMENT INCREASED
--- NOTE | 2020-01-26 07:56 | PDOC PROGRESS REPORT ---
Subjective Progress Note for:: 01/26/20 Subjective:: Pain is controlled. Had long conversation about why the COVID floor isolation was necessary before his rule out came back. Reason For Visit: SICKLE CELL CRISIS Physical Exam Vital Signs: Temp Pulse Resp BP Pulse Ox 98.4 F 82 20 136/77 H 100 01/26/20 03:48 01/26/20 03:48 01/26/20 03:48 01/26/20 03:48 01/26/20 03:48 Intake & Output 01/25/20 01/26/20 01/27/20 06:59 06:59 06:59 Intake Total 4830 1690 Output Total 2400 1825 Balance 2430 -135 Weight 93.5 kg 88.7 kg General appearance: PRESENT: no acute distress, well-developed, well-nourished Head exam: PRESENT: atraumatic, normocephalic Eye exam: PRESENT: conjunctiva pink, EOMI, PERRLA. ABSENT: scleral icterus Ear exam: PRESENT: normal external ear exam Mouth exam: PRESENT: moist, tongue midline Neck exam: ABSENT: carotid bruit, JVD, lymphadenopathy, thyromegaly Respiratory exam: PRESENT: clear to auscultation anastasiya. ABSENT: rales, rhonchi, wheezes Cardiovascular exam: PRESENT: RRR. ABSENT: diastolic murmur, rubs, systolic murmur Pulses: PRESENT: normal dorsalis pedis pul Vascular exam: PRESENT: normal capillary refill GI/Abdominal exam: PRESENT: normal bowel sounds, soft. ABSENT: distended, guarding, mass, organolmegaly, rebound, tenderness Rectal exam: PRESENT: deferred Extremities exam: PRESENT: full ROM. ABSENT: calf tenderness, clubbing, pedal edema Neurological exam: PRESENT: alert, awake, oriented to person, oriented to place, oriented to time, oriented to situation, CN II-XII grossly intact. ABSENT: motor sensory deficit Psychiatric exam: PRESENT: appropriate affect, normal mood. ABSENT: homicidal ideation, suicidal ideation Skin exam: PRESENT: dry, intact, warm. ABSENT: cyanosis, rash Results Laboratory Results: 01/26/20 06:25 01/26/20 06:25 01/25/20 01/25/20 01/26/20 05:50 05:50 06:25 WBC 7.0 5.1 RBC 2.65 L 2.50 L Hgb 8.8 L 8.4 L Hct 25.0 L 23.3 L MCV 94 93 MCH 33.1 33.7 H MCHC 35.1 36.2 H RDW 18.8 H 19.1 H Plt Count 439 465 H Seg Neutrophils % Not Reportable Retic Count (auto) 7.45 H Sodium Potassium Chloride Carbon Dioxide Anion Gap BUN Creatinine Est GFR ( Amer) Glucose Calcium Total Bilirubin AST Alkaline Phosphatase Total Protein Albumin 01/26/20 06:25 WBC RBC Hgb Hct MCV MCH MCHC RDW Plt Count Seg Neutrophils % Retic Count (auto) Sodium 139.3 Potassium 4.1 Chloride 101 Carbon Dioxide 30 Anion Gap 8 BUN 8 Creatinine 0.59 Est GFR ( Amer) > 60 Glucose 126 H Calcium 8.8 Total Bilirubin 2.7 H AST 29 Alkaline Phosphatase 93 Total Protein 6.9 Albumin 3.8 01/23/20 16:25 Throat Throat Culture - Final NORMAL [facility] Impressions: Chest X-Ray 01/23/20 15:44 IMPRESSION: No significant interval change. Bibasilar pleural and parenchymal scarring is stable. No acute cardiopulmonary disease. Assessment & Plan - Diagnosis (1) Sickle cell anemia with pain Is this a current diagnosis for this admission?: Yes Plan: Patient still having considerable pain, but current pain regimen is appropriate. Continue with supportive measures. (2) Pneumonia Qualifiers: Pneumonia type: due to unspecified organism Laterality: unspecified laterality Lung location: lower lobe of lung Qualified Code(s): J18.9 - Pneumonia, unspecified organism Is this a current diagnosis for this admission?: Yes Plan: Continue with antibiotic. - Time Time Spent with patient: 35 or more minutes
[2020-01-26] MEDS: RINGERS SOLUTION,LACTATED 1,000 ML IV PRN ×2 (10:02→18:54)
[2020-01-26] MEDS: DOCUSATE SODIUM 100 MG CAPSULE PO SCH ×2 (10:15→17:14)
[2020-01-26] MEDS: FOLIC ACID 1 MG TABLET PO SCH (10:16)
[2020-01-26] MEDS: HYDROXYUREA 500 MG CAPSULE PO SCH (11:09)
--- NOTE | 2020-01-26 11:50 | RADIOLOGY REPORT (SQ) ---
EXAM DESCRIPTION: CHEST SINGLE VIEW IMAGES COMPLETED DATE/TIME: 01/26/2020 11:28 am REASON FOR STUDY: rule out PNA and/or effusions COMPARISON: 01/23/2020. EXAM PARAMETERS: NUMBER OF VIEWS: One view. TECHNIQUE: Single frontal radiographic view of the chest acquired. RADIATION DOSE: NA LIMITATIONS: None. FINDINGS: LUNGS AND PLEURA: Elevation of the left hemidiaphragm. Linear densities in the lung bases . No large pleural effusion. No pneumothorax. MEDIASTINUM AND HILAR STRUCTURES: No masses. Contour normal. HEART AND VASCULAR STRUCTURES: Stable cardiomegaly. BONES: No acute findings. HARDWARE: Vascular port. OTHER: No other significant finding. IMPRESSION: NO SIGNIFICANT INTERVAL CHANGE. SCARRING IN THE LUNG BASES. TECHNICAL DOCUMENTATION: JOB ID: [id number] 2010 [employer]- All Rights Reserved Reading location - IP/workstation name: [email or web address]
--- NOTE | 2020-01-26 18:17 | PDOC PROGRESS REPORT ---
Subjective Progress Note for:: 01/26/20 Subjective:: PER Dr. Marquez progress note 01/24/2020 "PARMINDER CEE is a 39 year old male, diagnosed case of sickle cell, frequent admissions due to sickle cell pain crisis, who came back to the ED today due to pain generalized cough and shortness of breath. He was seen in the emergency room yesterday with typical sickle cell pain associated with shortness of breath. CBC was done which showed WBC count of 12.4, hemoglobin 9.5, reticulocyte count 0.28. Chest x-ray showed linear bibasilar opacities may be related to atelectasis or developing pneumonic process. He apparently had a syncopal episode have after having a chest x-ray. He was given IV fluids, Dilaudid, oxygen in the emergency room. Dr. Medellin was called by the ED provider yesterday who recommended doxycycline and azithromycin. Patient was then sent home. At home he continued to have shortness of breath, cough,, increasing pain hence he came back to the ED. In the emergency room WBC count 10.5, globin 9.3, reticulocyte count 0.302. Repeat chest x-ray showed bibasilar pleural and parenchymal scarring stable. Dr. Medellin was consulted who advised that the patient be admitted for sickle cell pain. He also agreed he that the patient needs to be tested for COVID. D2 Hospital stay 01/24/20. He was seen and examined at bedside. He reports that his pain is a little better today compared to yesterday. He has minimal cough but no SOB. He remains afebrile, fair appetite. He is currently on dilaudid 3 mg q2 and methadone [address] Medellin. COVID test pending. Labs are stable today." D3 Hospital stay 01/25/2020: Patient was seen on morning rounds. He is resting in bed. He complains of diffuse muscular/joint pain that is intermittently improved with pain medications. Pain is described as diffuse ache and is rated 4/5 at this time. He reports anxiety assoicated with being on the "COVID unit". His COVID was negative, plan to transfer out of unit. He is tolerating PO intake. Otherwise denies fever, chills, CP, SOB, cough, abdominal pain, NVD, or lower extremity swelling. Discussed case with pt's nurse. Nurse states that patient c/o anxiety secondary to being on COVID unit. We will tranfer pt as soon as bed is available. No other concerns at this time. D4 Hospital stay 01/26/2020: Patient was seen on morning rounds. Resting comfortably in bed. He continues to complain of pain but states that this is well controlled and improved from yesterday. He is significantly less stressed now that he is not on the COVID unit. He has been able to comfortably increase PO intake. Denies CP, palpitation, abd pain, NVD. Reason For Visit: SICKLE CELL CRISIS Physical Exam Vital Signs: Temp Pulse Resp BP Pulse Ox 98.4 F 82 20 136/77 H 100 01/26/20 03:48 01/26/20 03:48 01/26/20 03:48 01/26/20 03:48 01/26/20 03:48 Intake & Output 01/25/20 01/26/20 01/27/20 06:59 06:59 06:59 Intake Total 4830 1690 Output Total 2400 1825 Balance 2430 -135 Weight 93.5 kg 88.7 kg General appearance: PRESENT: no acute distress, cooperative, well-developed, well-nourished Head exam: PRESENT: atraumatic, normocephalic Eye exam: PRESENT: conjunctiva pink, EOMI, PERRLA. ABSENT: scleral icterus Ear exam: PRESENT: normal external ear exam. ABSENT: bleeding, drainage Mouth exam: PRESENT: moist, tongue midline Neck exam: PRESENT: full ROM. ABSENT: lymphadenopathy, tenderness Respiratory exam: PRESENT: clear to auscultation anastasiya, symmetrical, unlabored. ABSENT: tachypnea Cardiovascular exam: PRESENT: RRR, +S1, +S2. ABSENT: diastolic murmur, systolic murmur Pulses: PRESENT: +2 pedal pulses bilateral GI/Abdominal exam: PRESENT: normal bowel sounds, soft. ABSENT: firm, guarding, rebound, rigid, tenderness Rectal exam: PRESENT: deferred Extremities exam: ABSENT: clubbing, pedal edema, tenderness Musculoskeletal exam: PRESENT: ambulatory, full ROM. ABSENT: deformity, dislocation Neurological exam: PRESENT: alert, awake, oriented to person, oriented to place, oriented to time, oriented to situation, CN II-XII grossly intact. ABSENT: altered Psychiatric exam: PRESENT: appropriate affect, normal mood Skin exam: PRESENT: dry, intact, warm Results Laboratory Results: 01/26/20 06:25 01/26/20 06:25 01/25/20 01/26/20 01/26/20 05:50 06:25 06:25 WBC 5.1 RBC 2.50 L Hgb 8.4 L Hct 23.3 L MCV 93 MCH 33.7 H MCHC 36.2 H RDW 19.1 H Plt Count 465 H Seg Neutrophils % Not Reportable Retic Count (auto) 7.45 H Sodium 139.3 Potassium 4.1 Chloride 101 Carbon Dioxide 30 Anion Gap 8 BUN 8 Creatinine 0.59 Est GFR ( Amer) > 60 Glucose 126 H Calcium 8.8 Total Bilirubin 2.7 H AST 29 Alkaline Phosphatase 93 Total Protein 6.9 Albumin 3.8 01/23/20 16:25 Throat Throat Culture - Final NORMAL [facility] Impressions: Chest X-Ray 01/23/20 15:44 IMPRESSION: No significant interval change. Bibasilar pleural and parenchymal scarring is stable. No acute cardiopulmonary disease. Assessment and Plan - Diagnosis (1) Sickle cell anemia with pain Is this a current diagnosis for this admission?: Yes Plan: Long standing history of sickle cell anemia with frequent admission due to pain. Initially seen on 01/22/20 with same symptoms, pain meds given and was sent home; returned to ED 24 hours later and was admitted for tx. Patient is stable at this time, with pain controlled with current treatment regimen. Case discussed with Dr. Medellin on the phone. He is following the patient via tele med. Notes reviewed. - Daily CBC (Hgb and reticulocyte) and CMP (total bili) for stabilization. Once labs are stable consider d/c. -Continue IV Fluids. He is tolerating PO intake without difficulty. Emphasized the importance of both IV and PO hydration. -Continue with dilaudid and methadone for pain as advised by Dr. Medellin -Continue incentive spirometry as to decrease risk of acute chest syndrome. -O2 NC removed. -Continue hydroxyurea and folic acid -Continue Bowel regimine as advised by Dr. Medellin (2) Secondary thrombocytosis Is this a current diagnosis for this admission?: Yes Plan: - Remains elevate 465. - Suspect secondary to inflammation, expect to see with sickle cell crisis - Monitor on CBC for improvement (3) Hyperbilirubinemia Is this a current diagnosis for this admission?: Yes Plan: - 1.5 -> 2.7 - Suspect secondary to hemolysis in result of sickle cell crisis - Continue to monitor. - Treatment otherwise as discussed above (4) Pneumonia Qualifiers: Pneumonia type: due to unspecified organism Laterality: unspecified laterality Lung location: lower lobe of lung Qualified Code(s): J18.9 - Pneumonia, unspecified organism Is this a current diagnosis for this admission?: Yes Plan: - repeat CXR today no pnuemonia - STOP doxycycline IV and azithromycin - Cnt with incentive spirometry - Pt historically c/o cough and SOB -> Resolved - CXR 01/22 showed possible developing pneumonia - Tx'd doxycycline IV and azithromycin IV four days - Blood culture with no growth in 48 hours - COVID negative (5) Suspected COVID-19 virus infection Is this a current diagnosis for this admission?: Yes Plan: CXR 01/23/20 bibasilar opacities, which may be related to atelectasis or deve loping pneumonic process -COVID testing negative -Continue on telemetry (6) 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 Historically treated with Baclofen -Resume home medications. - Plan Summary Summary: Parminder Cee 39/M, diagnosed case of sickle cell anemia, history of acute chest syndrome, frequent admissions due to sickle cell pain, who came in the ED 01/22/2020 due to increased pain cough and shortness of breath. He was initially seen in the emergency room and was given IV fluids pain medications and was started on a azithromycin and doxycycline. He also apparently had an syncopal episode when he was in the ED. He eventually improved after IV fluids and pain medications and he was sent home. At home he continued to have pain with cough and low-grade fever. He came back to the ED yesterday and Dr. Contreras advised him to be admitted for management of pain. Chest x-ray showed bibasilar opacities which were concerning for pneumonia versus scarring from previous pneumonias. COVID test was ordered. He was started on a azithromycin and doxycycline IV, 3 mg Dilaudid every 2 hours, methadone 5 mg every [address] Medellin's recommendation. He was also started on oxygen support, incentive spirometry. Home medications were resumed. He will likely stay here for a couple of days as his usual length of stay in the hospital is 8 days. - Time Time Spent with patient: 15-24 minutes Medications reviewed and adjusted accordingly: Yes Anticipated Discharge Disposition: Home, Self Care Anticipated Discharge Timeframe: unknown
[2020-01-27] MEDS: HYDROMORPHONE HCL INJ/PF 2 MG/ML AMPULE IV SCH ×13 (00:14→22:18)
[2020-01-27] MEDS: DIPHENHYDRAMINE HCL 50 MG/ML VIAL IV PRN ×5 (00:14→22:18)
[2020-01-27] MEDS: TOBRAMYCIN SULFATE/DEXAMETH OPH SUSP 2.5 ML OU SCH ×4 (00:15→18:17)
[2020-01-27] MEDS: RINGERS SOLUTION,LACTATED 1,000 ML IV PRN ×3 (02:19→16:40)
[2020-01-27] MEDS: HEPARIN SOD (PORCINE) 5,000 UNIT/ML 1 ML VIAL SUBCUT SCH ×2 (06:16→14:03)
[2020-01-27] MEDS: METHADONE HCL 10 MG TABLET PO SCH ×3 (06:31→22:18)
--- NOTE | 2020-01-27 08:10 | PDOC PROGRESS REPORT ---
Subjective Progress Note for:: 01/27/20 Subjective:: Still w/ significant pain but feels the current pain dose is appropriate. Reason For Visit: SICKLE CELL CRISIS Physical Exam Vital Signs: Temp Pulse Resp BP Pulse Ox 98.0 F 84 18 127/85 H 92 01/27/20 04:32 01/27/20 04:32 01/27/20 04:32 01/27/20 04:32 01/27/20 04:32 Intake & Output 01/26/20 01/27/20 01/28/20 06:59 06:59 06:59 Intake Total 1690 5050 Output Total 1825 1550 Balance -135 3500 Weight 88.7 kg 92.6 kg General appearance: PRESENT: no acute distress, well-developed, well-nourished Head exam: PRESENT: atraumatic, normocephalic Eye exam: PRESENT: conjunctiva pink, EOMI, PERRLA. ABSENT: scleral icterus Ear exam: PRESENT: normal external ear exam Mouth exam: PRESENT: moist, tongue midline Neck exam: ABSENT: carotid bruit, JVD, lymphadenopathy, thyromegaly Respiratory exam: PRESENT: clear to auscultation anastasiya. ABSENT: rales, rhonchi, wheezes Cardiovascular exam: PRESENT: RRR. ABSENT: diastolic murmur, rubs, systolic murmur Pulses: PRESENT: normal dorsalis pedis pul Vascular exam: PRESENT: normal capillary refill GI/Abdominal exam: PRESENT: normal bowel sounds, soft. ABSENT: distended, guarding, mass, organolmegaly, rebound, tenderness Rectal exam: PRESENT: deferred Extremities exam: PRESENT: full ROM. ABSENT: calf tenderness, clubbing, pedal edema Neurological exam: PRESENT: alert, awake, oriented to person, oriented to place, oriented to time, oriented to situation, CN II-XII grossly intact. ABSENT: motor sensory deficit Psychiatric exam: PRESENT: appropriate affect, normal mood. ABSENT: homicidal ideation, suicidal ideation Skin exam: PRESENT: dry, intact, warm. ABSENT: cyanosis, rash Results Laboratory Results: 01/26/20 06:25 01/26/20 06:25 Impressions: Chest X-Ray 01/26/20 00:00 IMPRESSION: NO SIGNIFICANT INTERVAL CHANGE. SCARRING IN THE LUNG BASES. Assessment & Plan - Diagnosis (1) Sickle cell anemia with pain Is this a current diagnosis for this admission?: Yes Plan: Cont supportive care, no changes today. (2) Pneumonia Qualifiers: Pneumonia type: due to unspecified organism Laterality: unspecified laterality Lung location: lower lobe of lung Qualified Code(s): J18.9 - Pn eumonia, unspecified organism Is this a current diagnosis for this admission?: Yes Plan: Completed rx for CAP. no further atbx unless clinically needed. 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 So we have not transfused regularly. would wait until hb <6 to consider. - Time Time Spent with patient: 35 or more minutes
[2020-01-27 09:16] LABS: ABSOLUTE RETICS # 0.215 10^6/uL (0.028-0.122); HEMATOCRIT 25.1 % (37.9-51.0); HEMOGLOBIN 8.9 g/dL (13.5-17.0); MEAN CORPUSCULAR HEMOGLOBIN 32.8 pg (27.0-33.4); MEAN CORPUSCULAR HGB CONC 35.7 g/dL (32.0-36.0); MEAN CORPUSCULAR VOLUME 92 fl (80-97); PLATELET COUNT 518 10^3/uL (150-450); RED BLOOD COUNT 2.73 10^6/uL (4.35-5.55); RED CELL DISTRIBUTION WIDTH 19.4 % (11.5-14.0); RETICULOCYTE COUNT (AUTO) 7.89 % (0.66-2.85); WHITE BLOOD COUNT 7.1 10^3/uL (4.0-10.5)
[2020-01-27 09:45] LABS: ALBUMIN 4.2 g/dL (3.5-5.0); ALKALINE PHOSPHATASE 105 U/L (38-126); ANION GAP 10 (5-19); ASPARTATE AMINO TRANSFERASE 33 U/L (17-59); BILIRUBIN,DIRECT 0.4 mg/dL (0.0-0.4); BILIRUBIN,TOTAL 1.9 mg/dL (0.2-1.3); BLOOD UREA NITROGEN 5 mg/dL (7-20); CALCIUM 9.1 mg/dL (8.4-10.2); CARBON DIOXIDE 31 mmol/L (22-30); CHLORIDE 100 mmol/L (98-107); GLUCOSE 115 mg/dL (75-110); POTASSIUM 3.9 mmol/L (3.6-5.0)
[2020-01-27] MEDS: FOLIC ACID 1 MG TABLET PO SCH (11:16)
[2020-01-27] MEDS: DOCUSATE SODIUM 100 MG CAPSULE PO SCH ×2 (11:16→18:13)
--- NOTE | 2020-01-27 11:17 | PDOC PROGRESS REPORT ---
Subjective Progress Note for:: 01/27/20 Subjective:: PER Dr. Marquez progress note 01/24/2020 "PARMINDER CEE is a 39 year old male, diagnosed case of sickle cell, frequent admissions due to sickle cell pain crisis, who came back to the ED today due to pain generalized cough and shortness of breath. He was seen in the emergency room yesterday with typical sickle cell pain associated with shortness of breath. CBC was done which showed WBC count of 12.4, hemoglobin 9.5, reticulocyte count 0.28. Chest x-ray showed linear bibasilar opacities may be related to atelectasis or developing pneumonic process. He apparently had a syncopal episode have after having a chest x-ray. He was given IV fluids, Dilaudid, oxygen in the emergency room. Dr. Medellin was called by the ED provider yesterday who recommended doxycycline and azithromycin. Patient was then sent home. At home he continued to have shortness of breath, cough,, increasing pain hence he came back to the ED. In the emergency room WBC count 10.5, globin 9.3, reticulocyte count 0.302. Repeat chest x-ray showed bibasilar pleural and parenchymal scarring stable. Dr. Medellin was consulted who advised that the patient be admitted for sickle cell pain. He also agreed he that the patient needs to be tested for COVID. D2 Hospital stay 01/24/20. He was seen and examined at bedside. He reports that his pain is a little better today compared to yesterday. He has minimal cough but no SOB. He remains afebrile, fair appetite. He is currently on dilaudid 3 mg q2 and methadone [address] Medellin. COVID test pending. Labs are stable today." D3 Hospital stay 01/25/2020: Patient was seen on morning rounds. He is resting in bed. He complains of diffuse muscular/joint pain that is intermittently improved with pain medications. Pain is described as diffuse ache and is rated 4/5 at this time. He reports anxiety assoicated with being on the "COVID unit". His COVID was negative, plan to transfer out of unit. He is tolerating PO intake. Otherwise denies fever, chills, CP, SOB, cough, abdominal pain, NVD, or lower extremity swelling. Discussed case with pt's nurse. Nurse states that patient c/o anxiety secondary to being on COVID unit. We will tranfer pt as soon as bed is available. No other concerns at this time. D4 Hospital stay 01/26/2020: Patient was seen on morning rounds. Resting comfortably in bed. He continues to complain of pain but states that this is well controlled and improved from yesterday. He is significantly less stressed now that he is not on the COVID unit. He has been able to comfortably increase PO intake. Denies CP, palpitation, abd pain, NVD. D5 hospital stay 01/27/2020: Patient seen on morning rounds. He is resting comfortably in bed. He continues to complain of pain but states that this is gradually improving with current pain regimen. He also notes several episodes of loose bowels, which he discussed with Dr. Mckenzie goodman who suspects this to be secondary to antibiotic use. Patient historically treated with azithromycin and doxycycline, suspected diarrhea secondary to antibiotic use. No longer on antibiotics at this time. No further complaints or concerns from patient at this time. Denies chest pain palpitations abdominal pain, nausea vomiting diarrhea. Discussed case with nurse no complaints or concerns at this time. Reason For Visit: SICKLE CELL CRISIS Physical Exam Vital Signs: Temp Pulse Resp BP Pulse Ox 98.1 F 69 10 L 145/91 H 97 01/27/20 09:38 01/27/20 07:45 01/27/20 07:45 01/27/20 07:45 01/27/20 08:18 Intake & Output 01/26/20 01/27/20 01/28/20 06:59 06:59 06:59 Intake Total 1690 5050 1000 Output Total 1825 1550 Balance -135 3500 1000 Weight 88.7 kg 92.6 kg General appearance: PRESENT: cooperative, mild distress, well-developed, well- nourished Head exam: PRESENT: atraumatic, normocephalic Eye exam: PRESENT: conjunctiva pink, EOMI, PERRLA. ABSENT: scleral icterus Mouth exam: PRESENT: moist, tongue midline Neck exam: PRESENT: full ROM. ABSENT: JVD, lymphadenopathy, tenderness Respiratory exam: PRESENT: clear to auscultation anastasiya, symmetrical, unlabored. ABSENT: tachypnea Cardiovascular exam: PRESENT: RRR, +S1, +S2. ABSENT: diastolic murmur, rubs, systolic murmur GI/Abdominal exam: PRESENT: firm, normal bowel sounds, tenderness - Mild, diffuse. ABSENT: ascites, guarding Extremities exam: PRESENT: full ROM. ABSENT: calf tenderness, pedal edema, tenderness Musculoskeletal exam: PRESENT: ambulatory, full ROM. ABSENT: deformity, dislocation Neurological exam: PRESENT: alert, awake, oriented to person, oriented to place, oriented to time, oriented to situation, CN II-XII grossly intact. ABSENT: altered, motor sensory deficit Psychiatric exam: PRESENT: appropriate affect, normal mood Skin exam: PRESENT: dry, intact, normal color, warm. ABSENT: rash Results Laboratory Results: 01/27/20 09:00 01/27/20 09:00 01/27/20 01/27/20 09:00 09:00 WBC 7.1 RBC 2.73 L Hgb 8.9 L Hct 25.1 L MCV 92 MCH 32.8 MCHC 35.7 RDW 19.4 H Plt Count 518 H Retic Count (auto) 7.89 H Sodium 140.8 Potassium 3.9 Chloride 100 Carbon Dioxide 31 H Anion Gap 10 BUN 5 L Creatinine 0.57 Est GFR ( Amer) > 60 Glucose 115 H Calcium 9.1 Magnesium 1.8 Total Bilirubin 1.9 H AST 33 Alkaline Phosphatase 105 Total Protein 8.0 Albumin 4.2 Impressions: Chest X-Ray 01/26/20 00:00 IMPRESSION: NO SIGNIFICANT INTERVAL CHANGE. SCARRING IN THE LUNG BASES. Assessment and Plan - Diagnosis (1) Sickle cell anemia with pain Is this a current diagnosis for this admission?: Yes Plan: Long standing history of sickle cell anemia with frequent admission due to pain. Initially seen on 01/22/20 with same symptoms, pain meds given and was sent home; returned to ED 24 hours later and was admitted for tx. Patient is stable at this time, with pain controlled with current treatment regimen. Discussed case with nurse and encourage patient up and out of bed frequently. Patient followed by Dr. Medellin. Notes reviewed. - Daily CBC (Hgb and reticulocyte) and CMP (total bili) for stabilization. Once labs are stable consider d/c. -Continue IV Fluids. He is tolerating PO intake without difficulty. Emphasized the importance of both IV and PO hydration. -Continue with dilaudid and methadone for pain as advised by Dr. Medellin -Continue incentive spirometry as to decrease risk of acute chest syndrome. -Continue hydroxyurea and folic acid -Bowel regimine in place as advised by Dr. Medellin; will hold as patient is experiencing diarrhea. (2) Secondary thrombocytosis Is this a current diagnosis for this admission?: Yes Plan: -Continues to increase 465 -> 518 - Suspect secondary to inflammation, expect to see with sickle cell crisis -Suspect value will decrease as sickle cell crisis resolves - Monitor on CBC for improvement (3) Hyperbilirubinemia Is this a current diagnosis for this admission?: Yes Plan: - 1.5 -> 2.7 -> 1.9 - Suspect secondary to hemolysis in result of sickle cell crisis -Suspect to see continued improvement of sickle cell crisis resolves - Continue to monitor. - Treatment otherwise as discussed above (4) Pneumonia Qualifiers: Pneumonia type: due to unspecified organism Laterality: unspecified laterality Lung location: lower lobe of lung Qualified Code(s): J18.9 - Pneumonia, unspecified organism Is this a current diagnosis for this admission?: Yes Plan: - repeat CXR today no pnuemonia - doxycycline IV and azithromycin stopped on 01/26/2020 - Cnt with incentive spirometry - Pt historically c/o cough and SOB -> Resolved - CXR 01/22 showed possible developing pneumonia - Tx'd doxycycline IV and azithromycin IV four days - Blood culture with no growth in 48 hours - COVID negative (5) Suspected COVID-19 virus infection Is this a current diagnosis for this admission?: Yes Plan: CXR 01/23/20 bibasilar opacities, which may be related to atelectasis or developing pneumonic process prompted COVID testing -COVID testing negative -Continue on telemetry (6) Diarrhea Qualifiers: Diarrhea type: unspecified type Qualified Code(s): R19.7 - Diarrhea, unspecified Is this a current diagnosis for this admission?: Yes Plan: - 2-day history of frequent loose bowel movements consistent with diarrhea - Previously treated for CAP with doxycycline and azithromycin. Medications were stopped yesterday. - Suspect diarrhea secondary to antibiotic use versus malabsorption versus bowel regimen. - Hold bowel regimen at this time. - Continue to monitor. 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 Historically treated with Baclofen -Resume home medications. - Plan Summary Summary: Parminder Cee 39/M, diagnosed case of sickle cell anemia, history of acute chest syndrome, frequent admissions due to sickle cell pain, who came in the ED 01/22/2020 due to increased pain cough and shortness of breath. He was initially seen in the emergency room and was given IV fluids pain medications and was started on a azithromycin and doxycycline. He also apparently had an syncopal episode when he was in the ED. He eventually improved after IV fluids and pain medications and he was sent home. At home he continued to have pain with cough and low-grade fever. He came back to the ED yesterday and Dr. Contreras advised him to be admitted for management of pain. Chest x-ray showed bibasilar opacities which were concerning for pneumonia versus scarring from previous pneumonias. COVID test was ordered. He was started on a azithromycin and do xycycline IV, 3 mg Dilaudid every 2 hours, methadone 5 mg every [address] Medellin's recommendation. He was also started on oxygen support, incentive spirometry. Home medications were resumed. He will likely stay here for a couple of days as his usual length of stay in the hospital is 8 days. - Time Time Spent with patient: 15-24 minutes Medications reviewed and adjusted accordingly: Yes Anticipated Discharge Disposition: Home, Self Care Anticipated Discharge Timeframe: within 48 hours
[2020-01-27] MEDS: HYDROXYUREA 500 MG CAPSULE PO SCH (12:22)
[2020-01-28] MEDS: HYDROMORPHONE HCL INJ/PF 2 MG/ML AMPULE IV SCH ×12 (00:15→22:22)
[2020-01-28] MEDS: RINGERS SOLUTION,LACTATED 1,000 ML IV PRN ×4 (00:16→22:28)
[2020-01-28] MEDS: TOBRAMYCIN SULFATE/DEXAMETH OPH SUSP 2.5 ML OU SCH ×4 (00:21→18:49)
[2020-01-28] MEDS: DIPHENHYDRAMINE HCL 50 MG/ML VIAL IV PRN ×6 (02:20→22:19)
[2020-01-28] MEDS: HEPARIN SOD (PORCINE) 5,000 UNIT/ML 1 ML VIAL SUBCUT SCH ×4 (06:07→22:43)
[2020-01-28] MEDS: METHADONE HCL 10 MG TABLET PO SCH ×3 (06:09→22:22)
--- NOTE | 2020-01-28 07:57 | PDOC PROGRESS REPORT ---
Subjective Progress Note for:: 01/28/20 Subjective:: Patient doing a little bit better this morning Reason For Visit: SICKLE CELL CRISIS Physical Exam Vital Signs: Temp Pulse Resp BP Pulse Ox 97.8 F 92 18 142/91 H 92 01/27/20 20:07 01/27/20 20:07 01/27/20 20:07 01/27/20 20:07 01/27/20 20:07 Intake & Output 01/27/20 01/28/20 01/29/20 06:59 06:59 06:59 Intake Total 5050 5630 Output Total 1550 1400 Balance 3500 4230 Weight 92.6 kg 91.2 kg General appearance: PRESENT: no acute distress, well-developed, well-nourished Head exam: PRESENT: atraumatic, normocephalic Eye exam: PRESENT: conjunctiva pink, EOMI, PERRLA. ABSENT: scleral icterus Ear exam: PRESENT: normal external ear exam Mouth exam: PRESENT: moist, tongue midline Neck exam: ABSENT: carotid bruit, JVD, lymphadenopathy, thyromegaly Respiratory exam: PRESENT: clear to auscultation anastasiya. ABSENT: rales, rhonchi, wheezes Cardiovascular exam: PRESENT: RRR. ABSENT: diastolic murmur, rubs, systolic murmur Pulses: PRESENT: normal dorsalis pedis pul Vascular exam: PRESENT: normal capillary refill GI/Abdominal exam: PRESENT: normal bowel sounds, soft. ABSENT: distended, guarding, mass, organolmegaly, rebound, tenderness Rectal exam: PRESENT: deferred Extremities exam: PRESENT: full ROM. ABSENT: calf tenderness, clubbing, pedal edema Neurological exam: PRESENT: alert, awake, oriented to person, oriented to place, oriented to time, oriented to situation, CN II-XII grossly intact. ABSENT: motor sensory deficit Psychiatric exam: PRESENT: appropriate affect, normal mood. ABSENT: homicidal ideation, suicidal ideation Skin exam: PRESENT: dry, intact, warm. ABSENT: cyanosis, rash Results Laboratory Results: 01/27/20 01/27/20 09:00 09:00 WBC 7.1 RBC 2.73 L Hgb 8.9 L Hct 25.1 L MCV 92 MCH 32.8 MCHC 35.7 RDW 19.4 H Plt Count 518 H Retic Count (auto) 7.89 H Sodium 140.8 Potassium 3.9 Chloride 100 Carbon Dioxide 31 H Anion Gap 10 BUN 5 L Creatinine 0.57 Est GFR ( Amer) > 60 Glucose 115 H Calcium 9.1 Magnesium 1.8 Total Bilirubin 1.9 H AST 33 Alkaline Phosphatase 105 Total Protein 8.0 Albumin 4.2 Impressions: Chest X-Ray 01/26/20 00:00 IMPRESSION: NO SIGNIFICANT INTERVAL CHANGE. SCARRING IN THE LUNG BASES. 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
[2020-01-28 08:03] LABS: ABSOLUTE RETICS # 0.168 10^6/uL (0.028-0.122); HEMATOCRIT 22.7 % (37.9-51.0); HEMOGLOBIN 8.1 g/dL (13.5-17.0); MEAN CORPUSCULAR HEMOGLOBIN 33.1 pg (27.0-33.4); MEAN CORPUSCULAR HGB CONC 35.7 g/dL (32.0-36.0); MEAN CORPUSCULAR VOLUME 93 fl (80-97); RED BLOOD COUNT 2.45 10^6/uL (4.35-5.55); RED CELL DISTRIBUTION WIDTH 20.4 % (11.5-14.0); RETICULOCYTE COUNT (AUTO) 6.85 % (0.66-2.85); WHITE BLOOD COUNT 6.2 10^3/uL (4.0-10.5)
[2020-01-28 08:27] LABS: PLATELET COUNT 457 10^3/uL (150-450)
[2020-01-28 08:36] LABS: ANION GAP 7 (5-19); BLOOD UREA NITROGEN 7 mg/dL (7-20); CALCIUM 8.9 mg/dL (8.4-10.2); CARBON DIOXIDE 33 mmol/L (22-30); CHLORIDE 100 mmol/L (98-107); GLUCOSE 153 mg/dL (75-110); POTASSIUM 4.2 mmol/L (3.6-5.0)
[2020-01-28] MEDS: HYDROXYUREA 500 MG CAPSULE PO SCH (09:21)
[2020-01-28] MEDS: FOLIC ACID 1 MG TABLET PO SCH (09:21)
[2020-01-28] MEDS: DOCUSATE SODIUM 100 MG CAPSULE PO SCH ×2 (09:22→17:03)
--- NOTE | 2020-01-28 12:22 | PDOC PROGRESS REPORT ---
Subjective Progress Note for:: 01/28/20 Subjective:: PER Dr. Marquez progress note 01/24/2020 "PARMINDER CEE is a 39 year old male, diagnosed case of sickle cell, frequent admissions due to sickle cell pain crisis, who came back to the ED today due to pain generalized cough and shortness of breath. He was seen in the emergency room yesterday with typical sickle cell pain associated with shortness of breath. CBC was done which showed WBC count of 12.4, hemoglobin 9.5, reticulocyte count 0.28. Chest x-ray showed linear bibasilar opacities may be related to atelectasis or developing pneumonic process. He apparently had a syncopal episode have after having a chest x-ray. He was given IV fluids, Dilaudid, oxygen in the emergency room. Dr. Medellin was called by the ED provider yesterday who recommended doxycycline and azithromycin. Patient was then sent home. At home he continued to have shortness of breath, cough,, increasing pain hence he came back to the ED. In the emergency room WBC count 10.5, globin 9.3, reticulocyte count 0.302. Repeat chest x-ray showed bibasilar pleural and parenchymal scarring stable. Dr. Medellin was consulted who advised that the patient be admitted for sickle cell pain. He also agreed he that the patient needs to be tested for COVID. D2 Hospital stay 01/24/20. He was seen and examined at bedside. He reports that his pain is a little better today compared to yesterday. He has minimal cough but no SOB. He remains afebrile, fair appetite. He is currently on dilaudid 3 mg q2 and methadone [address] Medellin. COVID test pending. Labs are stable today." D3 Hospital stay 01/25/2020: Patient was seen on morning rounds. He is resting in bed. He complains of diffuse muscular/joint pain that is intermittently improved with pain medications. Pain is described as diffuse ache and is rated 4/5 at this time. He reports anxiety assoicated with being on the "COVID unit". His COVID was negative, plan to transfer out of unit. He is tolerating PO intake. Otherwise denies fever, chills, CP, SOB, cough, abdominal pain, NVD, or lower extremity swelling. Discussed case with pt's nurse. Nurse states that patient c/o anxiety secondary to being on COVID unit. We will tranfer pt as soon as bed is available. No other concerns at this time. D4 Hospital stay 01/26/2020: Patient was seen on morning rounds. Resting comfortably in bed. He continues to complain of pain but states that this is well controlled and improved from yesterday. He is significantly less stressed now that he is not on the COVID unit. He has been able to comfortably increase PO intake. Denies CP, palpitation, abd pain, NVD. D5 hospital stay 01/27/2020: Patient seen on morning rounds. He is resting comfortably in bed. He continues to complain of pain but states that this is gradually improving with current pain regimen. He also notes several episodes of loose bowels, which he discussed with Dr. Mckenzie goodman who suspects this to be secondary to antibiotic use. Patient historically treated with azithromycin and doxycycline, suspected diarrhea secondary to antibiotic use. No longer on antibiotics at this time. No further complaints or concerns from patient at this time. Denies chest pain palpitations abdominal pain, nausea vomiting diarrhea. Discussed case with nurse no complaints or concerns at this time. D6 Hospital stay 01/28/2020: Patient seen on morning rounds. He is resting comfortably in bed. He states that his pain has been improving from yesterday. He has been able to get up out of bed and move around. He is better tolerating oral intake. He is not currently on 02. His loose stools have been improving from yesterday. No further complaints or concerns at this time otherwise denies chest pain palpitations abdominal pain nausea vomiting or diarrhea. Discussed the case with patient's nurse and she states no complaints or concerns at this time. Reason For Visit: SICKLE CELL CRISIS Physical Exam Vital Signs: Temp Pulse Resp BP Pulse Ox 98.6 F 91 15 135/84 H 92 01/28/20 10:00 01/28/20 08:54 01/28/20 08:54 01/28/20 08:54 01/28/20 08:54 Intake & Output 01/27/20 01/28/20 01/29/20 06:59 06:59 06:59 Intake Total 5050 5630 Output Total 1550 1400 Balance 3500 4230 Weight 92.6 kg 91.2 kg General appearance: PRESENT: no acute distress, cooperative, well-developed, well-nourished Head exam: PRESENT: atraumatic, normocephalic Eye exam: PRESENT: conjunctiva pink, EOMI, PERRLA Mouth exam: PRESENT: moist, tongue midline Neck exam: PRESENT: full ROM. ABSENT: lymphadenopathy, tenderness Respiratory exam: PRESENT: clear to auscultation anastasiya, symmetrical, unlabored. ABSENT: rales, rhonchi, tachypnea, wheezes Cardiovascular exam: PRESENT: RRR, +S1, +S2. ABSENT: diastolic murmur, systolic murmur GI/Abdominal exam: PRESENT: normal bowel sounds, soft. ABSENT: distended, firm, guarding, tenderness Extremities exam: PRESENT: full ROM. ABSENT: pedal edema, tenderness Musculoskeletal exam: PRESENT: ambulatory, full ROM. ABSENT: deformity, dislocation Neurological exam: PRESENT: alert, awake, oriented to person, oriented to place, oriented to time, oriented to situation, CN II-XII grossly intact. ABSENT: altered, motor sensory deficit Psychiatric exam: PRESENT: appropriate affect, normal mood Skin exam: PRESENT: dry, intact, warm. ABSENT: rash Results Laboratory Results: 01/28/20 07:10 01/28/20 07:10 01/28/20 01/28/20 07:10 07:10 WBC 6.2 RBC 2.45 L Hgb 8.1 L Hct 22.7 L MCV 93 MCH 33.1 MCHC 35.7 RDW 20.4 H Plt Count 457 H Retic Count (auto) 6.85 H Sodium 139.9 Potassium 4.2 Chloride 100 Carbon Dioxide 33 H Anion Gap 7 BUN 7 Creatinine 0.56 Est GFR ( Amer) > 60 Glucose 153 H Calcium 8.9 Magnesium 1.9 Impressions: Chest X-Ray 01/26/20 00:00 IMPRESSION: NO SIGNIFICANT INTERVAL CHANGE. SCARRING IN THE LUNG BASES. Assessment and Plan - Diagnosis (1) Sickle cell anemia with pain Is this a current diagnosis for this admission?: Yes Plan: Long standing history of sickle cell anemia with frequent admission due to pain. Initially seen on 01/22/20 with same symptoms, pain meds given and was sent home; returned to ED 24 hours later and was admitted for tx. Patient is stable at this time, with pain controlled with current treatment regimen, as per Dr. J maxine. Continue get patient up out of bed frequently. Patient followed by Dr. Medellin. Notes reviewed. - Daily CBC (Hgb and reticulocyte) and CMP (total bili) for stabilization. Once labs are stable consider d/c. -Continue IV Fluids. He is tolerating PO intake without difficulty. Emphasized the importance of both IV and PO hydration. -Continue with dilaudid and methadone for pain as advised by Dr. Medellin -Continue incentive spirometry as to decrease risk of acute chest syndrome. -Continue hydroxyurea and folic acid -Bowel regimine in place as advised by Dr. Medellin; will hold as patient is experiencing diarrhea. (2) Secondary thrombocytosis Is this a current diagnosis for this admission?: Yes Plan: -Continues to be elevated but appears to be trending down - Suspect secondary to inflammation, expect to see with sickle cell crisis -Suspect value will decrease as sickle cell crisis resolves - Monitor on CBC for improvement (3) Hyperbilirubinemia Is this a current diagnosis for this admission?: Yes Plan: -Elevated but continues to be trending down - Suspect secondary to hemolysis in result of sickle cell crisis -Suspect to see continued improvement of sickle cell crisis resolves - Continue to monitor. - Treatment otherwise as discussed above (4) Pneumonia Qualifiers: Pneumonia type: due to unspecified organism Laterality: unspecified laterality Lung location: lower lobe of lung Qualified Code(s): J18.9 - Pneumonia, unspecified organism Is this a current diagnosis for this admission?: Yes Plan: - repeat CXR shows no pnuemonia - doxycycline IV and azithromycin stopped on 01/26/2020 - Cnt with incentive spirometry - Pt historically c/o cough and SOB -> Resolved - CXR 01/22 showed possible developing pneumonia - Tx'd doxycycline IV and azithromycin IV four days - Blood culture with no growth in 48 hours - COVID negative (5) Suspected COVID-19 virus infection Is this a current diagnosis for this admission?: Yes Plan: CXR 01/23/20 bibasilar opacities, which may be related to atelectasis or develo ping pneumonic process prompted COVID testing -COVID testing negative -Continue on telemetry (6) Diarrhea Qualifiers: Diarrhea type: unspecified type Qualified Code(s): R19.7 - Diarrhea, unspecified Is this a current diagnosis for this admission?: Yes Plan: - Significantly improved. - history of frequent loose bowel movements consistent with diarrhea - Previously treated for CAP with doxycycline and azithromycin. Medications were stopped yesterday. - Suspect diarrhea secondary to antibiotic use versus malabsorption versus bowel regimen. - Hold bowel regimen at this time. - Continue to monitor. 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 Historically treated with Baclofen -Resume home medications. - Plan Summary Summary: Parminder Cee 39/M, diagnosed case of sickle cell anemia, history of acute chest syndrome, frequent admissions due to sickle cell pain, who came in the ED 01/22/2020 due to increased pain cough and shortness of breath. He was initially seen in the emergency room and was given IV fluids pain medications and was started on a azithromycin and doxycycline. He also apparently had an syncopal episode when he was in the ED. He eventually improved after IV fluids and pain medications and he was sent home. At home he continued to have pain with cough and low-grade fever. He came back to the ED yesterday and Dr. Contreras advised him to be admitted for management of pain. Chest x-ray showed bibasilar opa cities which were concerning for pneumonia versus scarring from previous pneumonias. COVID test was ordered. He was started on a azithromycin and doxycycline IV, 3 mg Dilaudid every 2 hours, methadone 5 mg every [address] Medellin's recommendation. He was also started on oxygen support, incentive spirometry. Home medications were resumed. He will likely stay here for a couple of days as his usual length of stay in the hospital is 8 days. - Time Time Spent with patient: 15-24 minutes Medications reviewed and adjusted accordingly: Yes Anticipated Discharge Disposition: Home, Self Care Anticipated Discharge Timeframe: within 48 hours
[2020-01-29] MEDS: TOBRAMYCIN SULFATE/DEXAMETH OPH SUSP 2.5 ML OU SCH ×2 (00:24→06:27)
[2020-01-29] MEDS: HYDROMORPHONE HCL INJ/PF 2 MG/ML AMPULE IV SCH ×12 (00:24→22:13)
[2020-01-29] MEDS: DIPHENHYDRAMINE HCL 50 MG/ML VIAL IV PRN ×6 (02:13→20:04)
[2020-01-29] MEDS: HEPARIN SOD (PORCINE) 5,000 UNIT/ML 1 ML VIAL SUBCUT SCH ×3 (05:12→22:09)
[2020-01-29] MEDS: RINGERS SOLUTION,LACTATED 1,000 ML IV PRN ×3 (06:21→20:04)
[2020-01-29] MEDS: METHADONE HCL 10 MG TABLET PO SCH ×3 (06:21→22:13)
[2020-01-29 06:27] LABS: ABSOLUTE RETICS # 0.186 10^6/uL (0.028-0.122); HEMATOCRIT 22.3 % (37.9-51.0); MEAN CORPUSCULAR HEMOGLOBIN 33.3 pg (27.0-33.4); MEAN CORPUSCULAR HGB CONC 35.7 g/dL (32.0-36.0); MEAN CORPUSCULAR VOLUME 93 fl (80-97); PLATELET COUNT 445 10^3/uL (150-450); RED BLOOD COUNT 2.39 10^6/uL (4.35-5.55); RED CELL DISTRIBUTION WIDTH 20.7 % (11.5-14.0); RETICULOCYTE COUNT (AUTO) 7.78 % (0.66-2.85); WHITE BLOOD COUNT 5.8 10^3/uL (4.0-10.5)
[2020-01-29 06:38] LABS: ANION GAP 7 (5-19); BLOOD UREA NITROGEN 8 mg/dL (7-20); CALCIUM 8.9 mg/dL (8.4-10.2); CARBON DIOXIDE 32 mmol/L (22-30); CHLORIDE 100 mmol/L (98-107); GLUCOSE 137 mg/dL (75-110); POTASSIUM 4.3 mmol/L (3.6-5.0)
--- NOTE | 2020-01-29 07:56 | PDOC PROGRESS REPORT ---
Subjective Progress Note for:: 01/29/20 Subjective:: Patient doing slightly better but still having considerable pain this morning, continue with current dosing. He will need 48 more hours inpatient stay, probable improvement by Saturday hopefully. Reason For Visit: SICKLE CELL CRISIS Physical Exam Vital Signs: Temp Pulse Resp BP Pulse Ox 98.3 F 73 16 125/74 97 01/29/20 07:37 01/29/20 04:18 01/29/20 04:18 01/29/20 04:18 01/29/20 04:18 Intake & Output 01/28/20 01/29/20 01/30/20 06:59 06:59 06:59 Intake Total 5630 4180 Output Total 1400 3225 Balance 4230 955 Weight 91.2 kg 94.4 kg General appearance: PRESENT: no acute distress, well-developed, well-nourished Head exam: PRESENT: atraumatic, normocephalic Eye exam: PRESENT: conjunctiva pink, EOMI, PERRLA. ABSENT: scleral icterus Ear exam: PRESENT: normal external ear exam Mouth exam: PRESENT: moist, tongue midline Neck exam: ABSENT: carotid bruit, JVD, lymphadenopathy, thyromegaly Respiratory exam: PRESENT: clear to auscultation anastasiya. ABSENT: rales, rhonchi, wheezes Cardiovascular exam: PRESENT: RRR. ABSENT: diastolic murmur, rubs, systolic murmur Pulses: PRESENT: normal dorsalis pedis pul Vascular exam: PRESENT: normal capillary refill GI/Abdominal exam: PRESENT: normal bowel sounds, soft. ABSENT: distended, guarding, mass, organolmegaly, rebound, tenderness Rectal exam: PRESENT: deferred Extremities exam: PRESENT: full ROM. ABSENT: calf tenderness, clubbing, pedal edema Neurological exam: PRESENT: alert, awake, oriented to person, oriented to place, oriented to time, oriented to situation, CN II-XII grossly intact. ABSENT: motor sensory deficit Psychiatric exam: PRESENT: appropriate affect, normal mood. ABSENT: homicidal i deation, suicidal ideation Skin exam: PRESENT: dry, intact, warm. ABSENT: cyanosis, rash Results Laboratory Results: 01/29/20 05:58 01/28/20 01/28/20 01/29/20 07:10 07:10 05:58 WBC 6.2 RBC 2.45 L Hgb 8.1 L Hct 22.7 L MCV 93 MCH 33.1 MCHC 35.7 RDW 20.4 H Plt Count 457 H Retic Count (auto) 6.85 H Sodium 139.9 138.9 Potassium 4.2 4.3 Chloride 100 100 Carbon Dioxide 33 H 32 H Anion Gap 7 7 BUN 7 8 Creatinine 0.56 0.56 Est GFR ( Amer) > 60 > 60 Glucose 153 H 137 H Calcium 8.9 8.9 Magnesium 1.9 1.9 01/23/20 19:10 Blood Blood Culture - Final NO GROWTH IN 5 DAYS 01/23/20 16:45 Blood Blood Culture - Final NO GROWTH IN 5 DAYS Impressions: Chest X-Ray 01/26/20 00:00 IMPRESSION: NO SIGNIFICANT INTERVAL CHANGE. SCARRING IN THE LUNG BASES. Assessment & Plan - Diagnosis (1) Sickle cell anemia with pain Is this a current diagnosis for this admission?: Yes Plan: Continue current pain control and hydration, would not DC patient over the weekend, we will see how patient does by Saturday with hydration and pain control and hopeful DC thereafter. 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 If hemoglobin gets under 7 we will consider transfusion. But as noted previously, patient has multiple antibodies and will take time to get blood if needed. We have not needed to transfuse for several years now. - Time Time Spent with patient: 35 or more minutes
[2020-01-29] MEDS ORDERED: TOBRAMYCIN SULFATE/DEXAMETH OPH SUSP 2.5 ML OU PRN (10:30)
[2020-01-29] MEDS: HYDROXYUREA 500 MG CAPSULE PO SCH (10:49)
[2020-01-29 10:52] LABS: BILIRUBIN,DIRECT 0.4 mg/dL (0.0-0.4); BILIRUBIN,TOTAL 1.3 mg/dL (0.2-1.3)
[2020-01-29] MEDS: FOLIC ACID 1 MG TABLET PO SCH (10:52)
[2020-01-29] MEDS: DOCUSATE SODIUM 100 MG CAPSULE PO SCH ×2 (10:55→18:22)
--- NOTE | 2020-01-29 18:39 | PDOC PROGRESS REPORT ---
Subjective Progress Note for:: 01/29/20 Subjective:: PER Dr. Marquez progress note 01/24/2020 "PARMINDER CEE is a 39 year old male, diagnosed case of sickle cell, frequent admissions due to sickle cell pain crisis, who came back to the ED today due to pain generalized cough and shortness of breath. He was seen in the emergency room yesterday with typical sickle cell pain associated with shortness of breath. CBC was done which showed WBC count of 12.4, hemoglobin 9.5, reticulocyte count 0.28. Chest x-ray showed linear bibasilar opacities may be related to atelectasis or developing pneumonic process. He apparently had a syncopal episode have after having a chest x-ray. He was given IV fluids, Dilaudid, oxygen in the emergency room. Dr. Medellin was called by the ED provider yesterday who recommended doxycycline and azithromycin. Patient was then sent home. At home he continued to have shortness of breath, cough,, increasing pain hence he came back to the ED. In the emergency room WBC count 10.5, globin 9.3, reticulocyte count 0.302. Repeat chest x-ray showed bibasilar pleural and parenchymal scarring stable. Dr. Medellin was consulted who advised that the patient be admitted for sickle cell pain. He also agreed he that the patient needs to be tested for COVID. D2 Hospital stay 01/24/20. He was seen and examined at bedside. He reports that his pain is a little better today compared to yesterday. He has minimal cough but no SOB. He remains afebrile, fair appetite. He is currently on dilaudid 3 mg q2 and methadone [address] Medellin. COVID test pending. Labs are stable today." D3 Hospital stay 01/25/2020: Patient was seen on morning rounds. He is resting in bed. He complains of diffuse muscular/joint pain that is intermittently improved with pain medications. Pain is described as diffuse ache and is rated 4/5 at this time. He reports anxiety assoicated with being on the "COVID unit". His COVID was negative, plan to transfer out of unit. He is tolerating PO intake. Otherwise denies fever, chills, CP, SOB, cough, abdominal pain, NVD, or lower extremity swelling. Discussed case with pt's nurse. Nurse states that patient c/o anxiety secondary to being on COVID unit. We will tranfer pt as soon as bed is available. No other concerns at this time. D4 Hospital stay 01/26/2020: Patient was seen on morning rounds. Resting comfortably in bed. He continues to complain of pain but states that this is well controlled and improved from yesterday. He is significantly less stressed now that he is not on the COVID unit. He has been able to comfortably increase PO intake. Denies CP, palpitation, abd pain, NVD. D5 hospital stay 01/27/2020: Patient seen on morning rounds. He is resting comfortably in bed. He continues to complain of pain but states that this is gradually improving with current pain regimen. He also notes several episodes of loose bowels, which he discussed with Dr. Mckenzie goodman who suspects this to be secondary to antibiotic use. Patient historically treated with azithromycin and doxycycline, suspected diarrhea secondary to antibiotic use. No longer on antibiotics at this time. No further complaints or concerns from patient at this time. Denies chest pain palpitations abdominal pain, nausea vomiting diarrhea. Discussed case with nurse no complaints or concerns at this time. D6 Hospital stay 01/28/2020: Patient seen on morning rounds. He is resting comfortably in bed. He states that his pain has been improving from yesterday. He has been able to get up out of bed and move around. He is better tolerating oral intake. He is not currently on 02. His loose stools have been improving from yesterday. No further complaints or concerns at this time otherwise denies chest pain palpitations abdominal pain nausea vomiting or diarrhea. Discussed the case with patient's nurse and she states no complaints or concerns at this time. D6 Hospital stay 01/29/2020: Patient seen on afternoon rounds. He is sitting comfortably on the edge of bed. Pain continues to improve. He has been able to get out of bed and move around more than yesterday. Overall he feels that current treatment regimen has been successful. No further complaints or concerns at this time denies chest pain palpitations abdominal pain nausea vomiting or diarrhea. No concerns or complaints per pt's nurse Reason For Visit: SICKLE CELL CRISIS Physical Exam Vital Signs: Temp Pulse Resp BP Pulse Ox 98.3 F 73 16 125/74 97 01/29/20 07:37 01/29/20 04:18 01/29/20 04:18 01/29/20 04:18 01/29/20 04:18 Intake & Output 01/28/20 01/29/20 01/30/20 06:59 06:59 06:59 Intake Total 5630 4180 Output Total 1400 3225 Balance 4230 955 Weight 91.2 kg 94.4 kg General appearance: PRESENT: no acute distress, cooperative, well-developed, well-nourished Head exam: PRESENT: atraumatic, normocephalic Eye exam: PRESENT: conjunctiva pink, EOMI, PERRLA Mouth exam: PRESENT: moist, tongue midline Neck exam: PRESENT: full ROM. ABSENT: lymphadenopathy, tenderness Respiratory exam: PRESENT: clear to auscultation anastasiya, symmetrical, unlabored. ABSENT: tachypnea, wheezes Cardiovascular exam: PRESENT: RRR, +S1, +S2. ABSENT: diastolic murmur, systolic murmur Pulses: PRESENT: normal radial pulses GI/Abdominal exam: PRESENT: normal bowel sounds, soft. ABSENT: distended, firm, guarding, tenderness Extremities exam: PRESENT: full ROM. ABSENT: pedal edema, tenderness Musculoskeletal exam: PRESENT: ambulatory, full ROM. ABSENT: deformity, dislocation Neurological exam: PRESENT: alert, awake, oriented to person, oriented to place, oriented to time, oriented to situation, CN II-XII grossly intact. ABSENT: motor sensory deficit Psychiatric exam: PRESENT: appropriate affect, normal mood Skin exam: PRESENT: dry, intact, warm. ABSENT: rash Results Laboratory Results: 01/29/20 05:58 01/29/20 05:58 01/29/20 01/29/20 05:58 05:58 WBC 5.8 RBC 2.39 L Hgb 8.0 L Hct 22.3 L MCV 93 MCH 33.3 MCHC 35.7 RDW 20.7 H Plt Count 445 Retic Count (auto) 7.78 H Sodium 138.9 Potassium 4.3 Chloride 100 Carbon Dioxide 32 H Anion Gap 7 BUN 8 Creatinine 0.56 Est GFR ( Amer) > 60 Glucose 137 H Calcium 8.9 Magnesium 1.9 01/23/20 19:10 Blood Blood Culture - Final NO GROWTH IN 5 DAYS 01/23/20 16:45 Blood Blood Culture - Final NO GROWTH IN 5 DAYS Impressions: Chest X-Ray 01/26/20 00:00 IMPRESSION: NO SIGNIFICANT INTERVAL CHANGE. SCARRING IN THE LUNG BASES. Assessment and Plan - Diagnosis (1) Sickle cell anemia with pain Is this a current diagnosis for this admission?: Yes Plan: Long standing history of sickle cell anemia with frequent admission due to pain. Initially seen on 01/22/20 with same symptoms, pain meds given and was sent home; returned to ED 24 hours later and was admitted for tx. Patient is stable at this time, with pain controlled with current treatment regimen, as per Dr. Mckenzie goodman. Continue get patient up out of bed frequently. Patient followed by Dr. Medellin. Notes reviewed. Suspected dc on Saturday02/01/2020. - Daily CBC (Hgb and reticulocyte) and CMP (total bili) for stabilization. Once labs are stable consider d/c. -Continue IV Fluids. He is tolerating PO intake without difficulty. Emphasized the importance of both IV and PO hydration. -Continue with dilaudid and methadone for pain as advised by Dr. Medellin -Continue incentive spirometry as to decrease risk of acute chest syndrome. -Continue hydroxyurea and folic acid -Bowel regimine in place as advised by Dr. Medellin; will hold as patient is experiencing diarrhea. (2) Secondary thrombocytosis Is this a current diagnosis for this admission?: Yes Plan: -Trended down, now within normal limits - Monitor on CBC for improvement (3) Hyperbilirubinemia Is this a current diagnosis for this admission?: Yes Plan: -Elevated but continues to be trending down - Suspect secondary to hemolysis in result of sickle cell crisis -Suspect to see continued improvement of sickle cell crisis resolves - Continue to monitor. - Treatment otherwise as discussed above (4) Pneumonia Qualifiers: Pneumonia type: due to unspecified organism Laterality: unspecified la terality Lung location: lower lobe of lung Qualified Code(s): J18.9 - Pneumonia, unspecified organism Is this a current diagnosis for this admission?: Yes Plan: - repeat CXR shows no pnuemonia - doxycycline IV and azithromycin stopped on 01/26/2020 - Cnt with incentive spirometry - Pt historically c/o cough and SOB -> Resolved - CXR 01/22 showed possible developing pneumonia - Tx'd doxycycline IV and azithromycin IV four days - Blood culture with no growth in 48 hours - COVID negative (5) Suspected COVID-19 virus infection Is this a current diagnosis for this admission?: Yes Plan: CXR 01/23/20 bibasilar opacities, which may be related to atelectasis or developing pneumonic process prompted COVID testing -COVID testing negative -Continue on telemetry (6) Diarrhea Qualifiers: Diarrhea type: unspecified type Qualified Code(s): R19.7 - Diarrhea, unspecified Is this a current diagnosis for this admission?: Yes Plan: - Significantly improved. - history of frequent loose bowel movements consistent with diarrhea - Previously treated for CAP with doxycycline and azithromycin. Medications since stopped. - Suspect diarrhea secondary to antibiotic use versus malabsorption versus bowel regimen. - Hold bowel regimen at this time. - Continue to monitor. 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 Historically treated with Baclofen -Resume home medications. - Plan Summary Summary: Parmindre Cee 39/M, diagnosed case of sickle cell anemia, history of acute chest syndrome, frequent admissions due to sickle cell pain, who came in the ED 01/22/2020 due to increased pain cough and shortness of breath. He was initially seen in the emergency room and was given IV fluids pain medications and was started on a azithromycin and doxycycline. He also apparently had an syncopal episode when he was in the ED. He eventually improved after IV fluids and pain medications and he was sent home. At home he continued to have pain with cough and low-grade fever. He came back to the ED yesterday and Dr. Contreras advised him to be admitted for management of pain. Chest x-ray showed bibasilar opacities which were concerning for pneumonia versus scarring from previous pneumonias. COVID test was ordered. He was started on a azithromycin and doxycycline IV, 3 mg Dilaudid every 2 hours, methadone 5 mg every [address] Medellin's recommendation. He was also started on oxygen support, incentive spirometry. Home medications were resumed. He will likely stay here for a couple of days as his usual length of stay in the hospital is 8 days. - Time Time Spent with patient: 15-24 minutes Anticipated Discharge Disposition: Home, Self Care Anticipated Discharge Timeframe: within 72 hours - Per Dr. Medellin expect pt clear for dc on Saturday02/01/2020
[2020-01-30] MEDS: HYDROMORPHONE HCL INJ/PF 2 MG/ML AMPULE IV SCH ×12 (00:16→23:36)
[2020-01-30] MEDS: DIPHENHYDRAMINE HCL 50 MG/ML VIAL IV PRN ×6 (00:16→21:36)
[2020-01-30] MEDS: RINGERS SOLUTION,LACTATED 1,000 ML IV PRN ×4 (04:11→22:49)
[2020-01-30] MEDS: METHADONE HCL 10 MG TABLET PO SCH ×3 (05:56→22:13)
[2020-01-30] MEDS: HEPARIN SOD (PORCINE) 5,000 UNIT/ML 1 ML VIAL SUBCUT SCH ×3 (06:06→22:00)
[2020-01-30 06:54] LABS: ANION GAP 8 (5-19); BLOOD UREA NITROGEN 5 mg/dL (7-20); CALCIUM 8.8 mg/dL (8.4-10.2); CARBON DIOXIDE 31 mmol/L (22-30); CHLORIDE 102 mmol/L (98-107); GLUCOSE 108 mg/dL (75-110); POTASSIUM 4.3 mmol/L (3.6-5.0)
[2020-01-30 07:01] LABS: ABSOLUTE RETICS # 0.214 10^6/uL (0.028-0.122); HEMATOCRIT 22.8 % (37.9-51.0); MEAN CORPUSCULAR HEMOGLOBIN 33.1 pg (27.0-33.4); MEAN CORPUSCULAR HGB CONC 34.9 g/dL (32.0-36.0); MEAN CORPUSCULAR VOLUME 95 fl (80-97); RED BLOOD COUNT 2.41 10^6/uL (4.35-5.55); RED CELL DISTRIBUTION WIDTH 20.9 % (11.5-14.0); RETICULOCYTE COUNT (AUTO) 8.91 % (0.66-2.85); WHITE BLOOD COUNT 6.8 10^3/uL (4.0-10.5)
[2020-01-30 07:55] LABS: PLATELET COUNT 445 10^3/uL (150-450)
[2020-01-30] MEDS: DOCUSATE SODIUM 100 MG CAPSULE PO SCH ×2 (09:44→18:39)
[2020-01-30] MEDS: FOLIC ACID 1 MG TABLET PO SCH (09:44)
[2020-01-30] MEDS: HYDROXYUREA 500 MG CAPSULE PO SCH (09:45)
--- NOTE | 2020-01-30 12:53 | PDOC PROGRESS REPORT ---
Subjective Progress Note for:: 01/30/20 Subjective:: Patient has no new complaints today. We discussed his current pain and recent trial to get a new oral agent started, but difficulties with insurance have prevented this. He denies any CP or SOB. He is eating and ambulating to the bathroom without difficulty. Reason For Visit: SICKLE CELL CRISIS Physical Exam Vital Signs: Temp Pulse Resp BP Pulse Ox 98.3 F 70 15 135/87 H 100 01/30/20 08:21 01/30/20 08:21 01/30/20 08:21 01/30/20 08:21 01/30/20 08:21 Intake & Output 01/29/20 01/30/20 01/31/20 06:59 06:59 06:59 Intake Total 4180 4295 830 Output Total 3225 4900 Balance 955 -605 830 Weight 94.4 kg 94 kg 94 kg General appearance: PRESENT: no acute distress Head exam: PRESENT: normocephalic Eye exam: PRESENT: EOMI Respiratory exam: PRESENT: unlabored Extremities exam: ABSENT: pedal edema Musculoskeletal exam: PRESENT: ambulatory Neurological exam: PRESENT: alert, awake Psychiatric exam: PRESENT: appropriate affect Skin exam: PRESENT: normal color Results Laboratory Results: 01/30/20 06:00 01/30/20 06:00 01/30/20 01/30/20 06:00 06:00 WBC 6.8 RBC 2.41 L Hgb 8.0 L Hct 22.8 L MCV 95 MCH 33.1 MCHC 34.9 RDW 20.9 H Plt Count 445 Retic Count (auto) 8.91 H Sodium 140.8 Potassium 4.3 Chloride 102 Carbon Dioxide 31 H Anion Gap 8 BUN 5 L Creatinine 0.55 Est GFR ( Amer) > 60 Glucose 108 Calcium 8.8 Magnesium 1.9 Impressions: Chest X-Ray 01/26/20 00:00 IMPRESSION: NO SIGNIFICANT INTERVAL CHANGE. SCARRING IN THE LUNG BASES. Assessment & Plan - Diagnosis (1) Sickle cell anemia with pain Is this a current diagnosis for this admission?: Yes Plan: No changes today. Continue IV pain meds, O2, IVF. Encouraged him to walk in [place] and nutrition. - Time Time Spent with patient: Less than 15 minutes
--- NOTE | 2020-01-30 19:05 | PDOC PROGRESS REPORT ---
Subjective Progress Note for:: 01/30/20 Subjective:: he is feeling well, ambulating in halls, pain improving steadily Reason For Visit: SICKLE CELL CRISIS Physical Exam Vital Signs: Temp Pulse Resp BP Pulse Ox 98.2 F 87 19 144/91 H 94 01/30/20 16:01 01/30/20 16:01 01/30/20 16:01 01/30/20 16:01 01/30/20 16:01 Intake & Output 01/29/20 01/30/20 01/31/20 06:59 06:59 06:59 Intake Total 4180 4295 2430 Output Total 3225 4900 700 Balance 955 -605 1730 Weight 94.4 kg 94 kg 94 kg General appearance: PRESENT: no acute distress, cooperative Eye exam: ABSENT: scleral icterus Mouth exam: PRESENT: moist Throat exam: ABSENT: post pharyngeal erythema Neck exam: ABSENT: JVD Respiratory exam: PRESENT: clear to auscultation anastasiya, unlabored Cardiovascular exam: PRESENT: RRR GI/Abdominal exam: PRESENT: normal bowel sounds, soft Extremities exam: ABSENT: pedal edema Neurological exam: PRESENT: alert, awake Psychiatric exam: PRESENT: flat affect Skin exam: ABSENT: petechiae, rash Results Laboratory Results: 01/30/20 06:00 01/30/20 06:00 01/30/20 01/30/20 06:00 06:00 WBC 6.8 RBC 2.41 L Hgb 8.0 L Hct 22.8 L MCV 95 MCH 33.1 MCHC 34.9 RDW 20.9 H Plt Count 445 Retic Count (auto) 8.91 H Sodium 140.8 Potassium 4.3 Chloride 102 Carbon Dioxide 31 H Anion Gap 8 BUN 5 L Creatinine 0.55 Est GFR ( Amer) > 60 Glucose 108 Calcium 8.8 Magnesium 1.9 Impressions: Chest X-Ray 01/26/20 00:00 IMPRESSION: NO SIGNIFICANT INTERVAL CHANGE. SCARRING IN THE LUNG BASES. 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 Hemolytic anemia type: other hemoglobinopathy Qualified Code(s): D58.2 - Other hemoglobinopathies Is this a current diagnosis for this admission?: Yes (3) Atelectasis Is this a current diagnosis for this admission?: Yes (4) Dyspnea Qualifiers: Dyspnea type: shortness of breath Qualified Code(s): R06.02 - Shortness of breath; R06.00 - Dyspnea, unspecified; R06.01 - Orthopnea Is this a current diagnosis for this admission?: Yes (5) Itching Is this a current diagnosis for this admission?: Yes (6) Joint pain Qualifiers: Joint pain location: unspecified Qualified Code(s): M25.50 - Pain in unspecified joint Is this a current diagnosis for this admission?: Yes (7) Methadone dependence Is this a current diagnosis for this admission?: Yes (8) Sickle cell anemia Qualifiers: Sickle-cell associated disorders: with unspecified crisis Qualified Code(s): D57.00 - Hb-SS disease with crisis, unspecified; D57.0 - Hb-SS disease with crisis Is this a current diagnosis for this admission?: Yes (9) Hyperbilirubinemia Is this a current diagnosis for this admission?: Yes - Plan Summary Summary: He is steadily improving. Will continue current regimen at current doses. Likely DC in 1-2 days. - Time Time Spent with patient: 25-34 minutes Anticipated Discharge Disposition: Home, Self Care Anticipated Discharge Timeframe: within 24 hours
[2020-01-31] MEDS: HYDROMORPHONE HCL INJ/PF 2 MG/ML AMPULE IV SCH ×11 (01:39→22:59)
[2020-01-31] MEDS: DIPHENHYDRAMINE HCL 50 MG/ML VIAL IV PRN ×6 (01:39→23:05)
[2020-01-31] MEDS: METHADONE HCL 10 MG TABLET PO SCH ×3 (05:42→21:57)
[2020-01-31 06:12] LABS: HEMATOCRIT 22.5 % (37.9-51.0); MEAN CORPUSCULAR HEMOGLOBIN 33.8 pg (27.0-33.4); MEAN CORPUSCULAR HGB CONC 35.2 g/dL (32.0-36.0); MEAN CORPUSCULAR VOLUME 96 fl (80-97); PLATELET COUNT 444 10^3/uL (150-450); RED BLOOD COUNT 2.34 10^6/uL (4.35-5.55); WHITE BLOOD COUNT 6.5 10^3/uL (4.0-10.5)
[2020-01-31 06:51] LABS: ANION GAP 9 (5-19); BLOOD UREA NITROGEN 6 mg/dL (7-20); CALCIUM 8.8 mg/dL (8.4-10.2); CARBON DIOXIDE 29 mmol/L (22-30); CHLORIDE 101 mmol/L (98-107); GLUCOSE 143 mg/dL (75-110); POTASSIUM 4.2 mmol/L (3.6-5.0)
[2020-01-31 07:27] LABS: HEMOGLOBIN 7.9 g/dL (13.5-17.0)
[2020-01-31] MEDS: DOCUSATE SODIUM 100 MG CAPSULE PO SCH ×2 (10:12→18:17)
[2020-01-31] MEDS: HYDROXYUREA 500 MG CAPSULE PO SCH (10:23)
[2020-01-31] MEDS: FOLIC ACID 1 MG TABLET PO SCH (10:24)
[2020-01-31] MEDS: HEPARIN SOD (PORCINE) 5,000 UNIT/ML 1 ML VIAL SUBCUT SCH ×3 (10:26→21:58)
[2020-01-31] MEDS: RINGERS SOLUTION,LACTATED 1,000 ML IV PRN (11:33)
--- NOTE | 2020-01-31 16:05 | PDOC PROGRESS REPORT ---
Subjective Progress Note for:: 01/31/20 Subjective:: NAEO, feeling okay today Reason For Visit: SICKLE CELL CRISIS Physical Exam Vital Signs: Temp Pulse Resp BP Pulse Ox 98.2 F 69 16 110/83 95 01/31/20 11:41 01/31/20 11:41 01/31/20 11:41 01/31/20 11:41 01/31/20 11:41 Intake & Output 01/30/20 01/31/20 02/01/20 06:59 06:59 06:59 Intake Total 4295 4378 120 Output Total 4900 2050 Balance -605 2328 120 Weight 94 kg 94 kg General appearance: PRESENT: no acute distress, cooperative Eye exam: ABSENT: scleral icterus Mouth exam: PRESENT: moist Throat exam: ABSENT: post pharyngeal erythema Neck exam: ABSENT: JVD Respiratory exam: PRESENT: clear to auscultation anastasiya, unlabored Cardiovascular exam: PRESENT: RRR GI/Abdominal exam: PRESENT: normal bowel sounds, soft Extremities exam: ABSENT: pedal edema Neurological exam: PRESENT: alert, awake, oriented to person, oriented to place, oriented to time, oriented to situation Psychiatric exam: PRESENT: flat affect Skin exam: ABSENT: rash Results Laboratory Results: 01/31/20 05:30 01/31/20 05:30 01/31/20 01/31/20 05:30 05:30 WBC 6.5 RBC 2.34 L Hgb 7.9 L Hct 22.5 L MCV 96 MCH 33.8 H MCHC 35.2 RDW 22.0 H Plt Count 444 Sodium 139.0 Potassium 4.2 Chloride 101 Carbon Dioxide 29 Anion Gap 9 BUN 6 L Creatinine 0.52 Est GFR ( Amer) > 60 Glucose 143 H Calcium 8.8 Impressions: Chest X-Ray 01/26/20 00:00 IMPRESSION: NO SIGNIFICANT INTERVAL CHANGE. SCARRING IN THE LUNG BASES. 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 Hemolytic anemia type: other hemoglobinopathy Qualified Code(s): D58.2 - Other hemoglobinopathies Is this a current diagnosis for this admission?: Yes (3) Atelectasis Is this a current diagnosis for this admission?: Yes (4) Dyspnea Qualifiers: Dyspnea type: shortness of breath Qualified Code(s): R06.02 - Shortness of breath; R06.00 - Dyspnea, unspecified; R06.01 - Orthopnea Is this a current diagnosis for this admission?: Yes (5) Itching Is this a current diagnosis for this admission?: Yes (6) Joint pain Qualifiers: Joint pain location: unspecified Qualified Code(s): M25.50 - Pain in unspecified joint Is this a current diagnosis for this admission?: Yes (7) Methadone dependence Is this a current diagnosis for this admission?: Yes (8) Sickle cell anemia Qualifiers: Sickle-cell associated disorders: with unspecified crisis Qualified Code(s): D57.00 - Hb-SS disease with crisis, unspecified; D57.0 - Hb-SS disease with crisis Is this a current diagnosis for this admission?: Yes (9) Hyperbilirubinemia Is this a current diagnosis for this admission?: Yes - Plan Summary Summary: He is steadily improving. Will continue current regimen at current doses. - Time Time Spent with patient: 25-34 minutes Anticipated Discharge Disposition: Home, Self Care Anticipated Discharge Timeframe: within 24 hours
[2020-02-01] MEDS: HYDROMORPHONE HCL INJ/PF 2 MG/ML AMPULE IV SCH ×9 (00:56→16:22)
[2020-02-01] MEDS: DIPHENHYDRAMINE HCL 50 MG/ML VIAL IV PRN ×4 (02:56→14:12)
[2020-02-01] MEDS: RINGERS SOLUTION,LACTATED 1,000 ML IV PRN ×2 (02:57→09:57)
[2020-02-01 05:44] LABS: HEMATOCRIT 23.2 % (37.9-51.0); HEMOGLOBIN 8.1 g/dL (13.5-17.0); MEAN CORPUSCULAR HEMOGLOBIN 33.7 pg (27.0-33.4); MEAN CORPUSCULAR VOLUME 96 fl (80-97); PLATELET COUNT 398 10^3/uL (150-450); RED BLOOD COUNT 2.41 10^6/uL (4.35-5.55); RED CELL DISTRIBUTION WIDTH 23.4 % (11.5-14.0); WHITE BLOOD COUNT 5.6 10^3/uL (4.0-10.5)
[2020-02-01] MEDS: METHADONE HCL 10 MG TABLET PO SCH ×2 (06:03→14:12)
[2020-02-01] MEDS: HEPARIN SOD (PORCINE) 5,000 UNIT/ML 1 ML VIAL SUBCUT SCH ×2 (06:04→15:57)
[2020-02-01 06:06] LABS: ANION GAP 8 (5-19); BLOOD UREA NITROGEN 7 mg/dL (7-20); CALCIUM 8.7 mg/dL (8.4-10.2); CARBON DIOXIDE 30 mmol/L (22-30); CHLORIDE 102 mmol/L (98-107); GLUCOSE 100 mg/dL (75-110); POTASSIUM 4.5 mmol/L (3.6-5.0)
--- NOTE | 2020-02-01 08:48 | PDOC PROGRESS REPORT ---
Subjective Progress Note for:: 02/01/20 Subjective:: Patient states he would like to go home today. He will try to get a ride around noon. Reason For Visit: SICKLE CELL CRISIS Physical Exam Vital Signs: Temp Pulse Resp BP Pulse Ox 97.7 F 78 15 124/73 92 02/01/20 07:36 02/01/20 07:36 02/01/20 07:36 02/01/20 07:36 02/01/20 07:36 Intake & Output 01/31/20 02/01/20 02/02/20 06:59 06:59 06:59 Intake Total 4378 1360 Output Total 2050 1475 Balance 2328 -115 Weight 94 kg 94 kg General appearance: PRESENT: no acute distress Eye exam: PRESENT: EOMI Respiratory exam: PRESENT: unlabored Musculoskeletal exam: PRESENT: normal inspection Neurological exam: PRESENT: alert, awake Psychiatric exam: PRESENT: appropriate affect Skin exam: PRESENT: normal color Results Laboratory Results: 02/01/20 05:15 02/01/20 05:15 02/01/20 02/01/20 05:15 05:15 WBC 5.6 RBC 2.41 L Hgb 8.1 L Hct 23.2 L MCV 96 MCH 33.7 H MCHC 35.0 RDW 23.4 H Plt Count 398 Sodium 140.0 Potassium 4.5 Chloride 102 Carbon Dioxide 30 Anion Gap 8 BUN 7 Creatinine 0.57 Est GFR ( Amer) > 60 Glucose 100 Calcium 8.7 Impressions: Chest X-Ray 01/26/20 00:00 IMPRESSION: NO SIGNIFICANT INTERVAL CHANGE. SCARRING IN THE LUNG BASES. Assessment & Plan - Diagnosis (1) Sickle cell anemia with pain Is this a current diagnosis for this admission?: Yes Plan: I agree with plans for discharge today. He will follow-up with Dr. Medellin as previously scheduled within the next 2 weeks. We will take care of Escribing any narcotics needed. - Time Time Spent with patient: Less than 15 minutes
[2020-02-01] MEDS: DOCUSATE SODIUM 100 MG CAPSULE PO SCH (10:10)
[2020-02-01] MEDS: FOLIC ACID 1 MG TABLET PO SCH (10:10)
[2020-02-01] MEDS: HYDROXYUREA 500 MG CAPSULE PO SCH (10:10)
[2020-02-01 15:21] VITALS: BP 136/77
--- NOTE | 2020-02-01 21:17 | PDOC DISCHARGE SUMMARY ---
Impression - Admit/DC Date/PCP Admission Date/Primary Care Provider: 01/23/20 18:38 BETH STAPLETON MD Discharge Date: 02/01/20 - Discharge Diagnosis (1) Sickle cell pain crisis Is this a current diagnosis for this admission?: Yes (2) Anemia Is this a current diagnosis for this admission?: Yes (3) Atelectasis Is this a current diagnosis for this admission?: Yes (4) Dyspnea Is this a current diagnosis for this admission?: Yes (5) Itching Is this a current diagnosis for this admission?: Yes (6) Joint pain Is this a current diagnosis for this admission?: Yes (7) Methadone dependence Is this a current diagnosis for this admission?: Yes (8) Sickle cell anemia Is this a current diagnosis for this admission?: Yes (9) Hyperbilirubinemia Is this a current diagnosis for this admission?: Yes - Assessment Summary: MARISA GARBER is a 39 year old male with sickle cell disease who presented with generalized pain, cough and shortness of breath. Chest x-ray showed linear bibasilar opacities may be related to atelectasis or developing pneumonic process. He apparently had a syncopal episode have after having a chest x-ray. Dr. Stapleton was consulted who advised that the patient be admitted for sickle cell pain. He tested negative for COVID and BCx were also negative. He was given IV fluids, Dilaudid, oxygen with improvement in his symptoms. He was discharged home in stable condition. - Additional Information Resuscitation Status: Full Code Discharge Diet: Regular Discharge Activity: Activity As Tolerated Referrals: BETH STAPLETON MD [Primary Care Provider] - 02/17/20 9:45 am Home Medications: Oxycodone HCl [Oxy-Ir 5 mg Tablet] 10 mg PO Q4HP PRN 02/19/19 Ibuprofen [Ibu] 600 mg PO Q8HP PRN 10/17/19 Docusate Sodium [Colace 100 mg Capsule] 100 mg PO BID capsule 10/26/19 Folic Acid [Folvite 1 mg Tablet] 1 mg PO DAILY tablet 10/26/19 Hydroxyurea [Hydrea 500 mg Capsule] 1,500 mg PO DAILY capsule 10/26/19 Methadone HCl [Dolophine 10 mg Tablet] 5 mg PO Q8 tablet 10/26/19 Baclofen [Baclofen 10 mg Tablet] 10 mg PO BIDP PRN 12/03/19 Melatonin [Melatonin 5 mg Tablet] 10 mg PO HSP PRN 12/03/19 Pseudoephedrine HCl [Sudafed 30 mg Tablet] 30 mg PO Q6HP PRN 12/03/19 Tobramycin Sulfate/Dexameth [Tobradex Oph Drops 2.5 ml] 1 drop OU Q6 bottle 12/14/19 History of Present Illiness History of Present Illness: MARISA GARBER is a 39 year old male Physical Exam Vital Signs: Temp Pulse Resp BP Pulse Ox 97.8 F 74 15 136/77 H 94 02/01/20 15:18 02/01/20 15:18 02/01/20 15:18 02/01/20 15:18 02/01/20 15:18 Intake & Output 01/31/20 02/01/20 02/02/20 06:59 06:59 06:59 Intake Total 4378 1360 1360 Output Total 2050 1475 1200 Balance 2328 -115 160 Weight 94 kg 94 kg Results Laboratory Results: WBC 5.6 10^3/uL (4.0-10.5) 02/01/20 05:15 RBC 2.41 10^6/uL (4.35-5.55) L 02/01/20 05:15 Hgb 8.1 g/dL (13.5-17.0) L 02/01/20 05:15 Hct 23.2 % (37.9-51.0) L 02/01/20 05:15 MCV 96 fl (80-97) 02/01/20 05:15 MCH 33.7 pg (27.0-33.4) H 02/01/20 05:15 MCHC 35.0 g/dL (32.0-36.0) 02/01/20 05:15 RDW 23.4 % (11.5-14.0) H 02/01/20 05:15 Plt Count 398 10^3/uL (150-450) 02/01/20 05:15 Lymph % (Auto) Not Reportable 01/26/20 06:25 [place] % (Auto) Not Reportable 01/26/20 06:25 Eos % (Auto) Not Reportable 01/26/20 06:25 Baso % (Auto) Not Reportable 01/26/20 06:25 Reticulocyte # 0.214 10^6/uL (0.028-0.122) H 01/30/20 06:00 Absolute Neuts (auto) Not Reportable 01/26/20 06:25 Absolute Lymphs (auto) Not Reportable 01/26/20 06:25 Absolute Monos (auto) Not Reportable 01/26/20 06:25 Absolute Eos (auto) Not Reportable 01/26/20 06:25 Absolute Basos (auto) Not Reportable 01/26/20 06:25 Total Counted 100 01/26/20 06:25 Seg Neutrophils % Not Reportable 01/26/20 06:25 Seg Neuts % (Manual) 51 % (42-78) 01/26/20 06:25 Lymphocytes % (Manual) 39 % (13-45) 01/26/20 06:25 Atypical Lymphs % 1 % (0) 01/26/20 06:25 Monocytes % (Manual) 5 % (3-13) 01/26/20 06:25 Eosinophils % (Manual) 4 % (0-6) 01/26/20 06:25 Basophils % (Manual) 0 % (0-2) 01/26/20 06:25 Abs Neuts (Manual) 2.6 10^3/uL (1.7-8.2) 01/26/20 06:25 Abs Lymphs (Manual) 2.0 10^3/uL (0.5-4.7) 01/26/20 06:25 Abs Monocytes (Manual) 0.3 10^3/uL (0.1-1.4) 01/26/20 06:25 Absolute Eos (Manual) 0.2 10^3/uL (0.0-0.6) 01/26/20 06:25 Abs Basophils (Manual) 0.0 10^3/uL (0.0-0.2) 01/26/20 06:25 Nucleated RBCs 2 /100 WBC (0) 01/26/20 06:25 Platelet Comment INCREASED 01/26/20 06:25 Polychromasia 1+ 01/26/20 06:25 Poikilocytosis 2+ 01/26/20 06:25 Anisocytosis 2+ 01/26/20 06:25 Sickle Cells 2+ 01/26/20 06:25 Target Cells 2+ 01/26/20 06:25 Tear Drop Cells 2+ 01/25/20 05:50 Ovalocytes 2+ 01/26/20 06:25 Maria Elena Cells SLIGHT 01/24/20 05:45 Schistocytes 1+ 01/26/20 06:25 Retic Count (auto) 8.91 % (0.66-2.85) H 01/30/20 06:00 Sodium 140.0 mmol/L (137-145) 02/01/20 05:15 Potassium 4.5 mmol/L (3.6-5.0) 02/01/20 05:15 Chloride 102 mmol/L (98-107) 02/01/20 05:15 Carbon Dioxide 30 mmol/L (22-30) 02/01/20 05:15 Anion Gap 8 (5-19) 02/01/20 05:15 BUN 7 mg/dL (7-20) 02/01/20 05:15 Creatinine 0.57 mg/dL (0.52-1.25) 02/01/20 05:15 Est GFR ( Amer) > 60 (>60) 02/01/20 05:15 Est GFR (MDRD) Non-Af > 60 (>60) 02/01/20 05:15 Glucose 100 mg/dL (75-110) 02/01/20 05:15 Lactic Acid 1.0 mmol/L (0.7-2.1) 01/23/20 16:59 Calcium 8.7 mg/dL (8.4-10.2) 02/01/20 05:15 Magnesium 1.9 mg/dL (1.6-2.3) 01/30/20 06:00 Total Bilirubin 1.3 mg/dL (0.2-1.3) 01/29/20 05:58 Direct Bilirubin 0.4 mg/dL (0.0-0.4) 01/29/20 05:58 Neonat Total Bilirubin Not Reportable 01/27/20 09:00 Neonat Direct Bilirubin Not Reportable 01/27/20 09:00 Neonat Indirect Bili Not Reportable 01/27/20 09:00 AST 33 U/L (17-59) 01/27/20 09:00 ALT 20 U/L (<50) 01/27/20 09:00 Alkaline Phosphatase 105 U/L (38-126) 01/27/20 09:00 Total Protein 8.0 g/dL (6.3-8.2) 01/27/20 09:00 Albumin 4.2 g/dL (3.5-5.0) 01/27/20 09:00 Urine Color YELLOW 01/23/20 19:50 Urine Appearance CLEAR 01/23/20 19:50 Urine pH 7.0 (5.0-9.0) 01/23/20 19:50 Ur Specific [place] 1.005 01/23/20 19:50 Urine Protein NEGATIVE mg/dL (NEGATIVE) 01/23/20 19:50 Urine Glucose (UA) NEGATIVE mg/dL (NEGATIVE) 01/23/20 19:50 Urine Ketones NEGATIVE mg/dL (NEGATIVE) 01/23/20 19:50 Urine Blood NEGATIVE (NEGATIVE) 01/23/20 19:50 Urine Nitrite NEGATIVE (NEGATIVE) 01/23/20 19:50 Urine Bilirubin NEGATIVE (NEGATIVE) 01/23/20 19:50 Urine Urobilinogen NEGATIVE mg/dL (<2.0) 01/23/20 19:50 Ur Leukocyte Esterase NEGATIVE (NEGATIVE) 01/23/20 19:50 Urine WBC (Auto) 0 /HPF 01/23/20 19:50 Urine Mucus (Auto) RARE /LPF 01/23/20 19:50 Urine Ascorbic Acid NEGATIVE (NEGATIVE) 01/23/20 19:50 COVID-19 Source See comment 01/23/20 19:30 COVID-19 (BIGG) Not Detected (Not Detect) 01/23/20 19:30 Influenza A (Rapid) NEGATIVE (NEGATIVE) 01/23/20 16:25 Influenza B (Rapid) NEGATIVE (NEGATIVE) 01/23/20 16:25 Group A Strep Rapid NEGATIVE (NEGATIVE) 01/23/20 16:25 Impressions: Chest X-Ray 01/23/20 15:44 IMPRESSION: No significant interval change. Bibasilar pleural and parenchymal scarring is stable. No acute cardiopulmonary disease. Chest X-Ray 01/26/20 00:00 IMPRESSION: NO SIGNIFICANT INTERVAL CHANGE. SCARRING IN THE LUNG BASES. Stroke Is this a Stroke Patient?: No Acute Heart Failure Is this a Heart Failure Patient?: No
== END 2020-02-01 17:34 | disposition home or self-care (01) | DRG 812 ==
LOC: ER 15:30 → EH 18:38 → 3N 22:05 → 5 01-25 12:56
PROVIDERS: ADMIT Internal Medicine; ATTEND Hospitalist
DX: D57.00 Hb-SS disease with crisis, unspecified (principal); J98.11 Atelectasis; N48.32 Priapism due to disease classified elsewhere; F11.20 Opioid dependence, uncomplicated; Z90.49 Acquired absence of other specified parts of digestive tract; F32.9 Major depressive disorder, single episode, unspecified; D47.3 Essential (hemorrhagic) thrombocythemia; E80.6 Other disorders of bilirubin metabolism; Z88.1 Allergy status to other antibiotic agents; Z88.4 Allergy status to anesthetic agent; Z91.040 Latex allergy status; Z88.8 Allergy status to other drugs, medicaments and biological substances; Z91.018 Allergy to other foods; Z20.828 Contact with and (suspected) exposure to other viral communicable diseases
CPT/HCPCS: 36415; 36591; 70450; 71045; 71046; 80048; 80053; 81001; 82247; 82248; 83605; 83735; 85025; 85027; 85045; 87040; 87070; 87635; 87804; 87880; 93005; 93010; 94799; 96361; 96374; 96375; 96376; 99285; C9803; J0456; J1170; J1200; J1642; J3490; J7030; J7060; J7120

== ENCOUNTER 2020-02-02 11:06 | Outpatient (CLI) | payer MEDICARE, MEDICAID ==
[2020-02-02] MEDS ORDERED: DIPHENHYDRAMINE HCL 25 MG in NORMAL SALINE 50 ML IV PRN (11:19)
[2020-02-02] MEDS ORDERED: NORMAL SALINE 1000 ML 1,000 ML IV PRN (11:20)
[2020-02-02] MEDS ORDERED: HYDROMORPHONE HCL INJ/PF 2 MG/ML AMPULE IV PRN (11:21)
[2020-02-02 11:26] VITALS: BP 133/82
== END 2020-02-02 12:30 | disposition home or self-care (01) ==
LOC: II 11:06 → 5TH 11:13 → II 12:30
PROVIDERS: ATTEND Internal Medicine
DX: D57.1 Sickle-cell disease without crisis (principal); E86.0 Dehydration; R52 Pain, unspecified
CPT/HCPCS: 96365; 96375; 96361; J1200; J1170; J1642

== ENCOUNTER 2020-02-03 08:02 | Outpatient (CLI) | payer MEDICARE, MEDICAID ==
[~2020-02-03 08:02] MED LIST changes: +NORMAL SALINE 1000 ML 1,000 ML IV PRN; -NORMAL SALINE 1000 ML @ AS DIRECTED IV PRN
[2020-02-03 08:14] VITALS: BP 129/84
== END 2020-02-03 09:45 | disposition home or self-care (01) ==
LOC: II 08:02 → 5TH 08:05 → II 09:45
PROVIDERS: ATTEND Internal Medicine
DX: D57.1 Sickle-cell disease without crisis (principal); E86.0 Dehydration; R52 Pain, unspecified
CPT/HCPCS: 96365; 96375; 96361; J1200; J1170; J1642

== ENCOUNTER 2020-02-05 08:11 | Outpatient (CLI) | payer MEDICARE, MEDICAID ==
[~2020-02-05 08:11] MED LIST changes: -DIPHENHYDRAMINE HCL 25 MG in NORMAL SALINE 50 ML IV PRN; -HYDROMORPHONE HCL INJ/PF 2 MG/ML AMPULE IV PRN; -NORMAL SALINE 1000 ML 1,000 ML IV PRN; +NORMAL SALINE 1000 ML @ AS DIRECTED IV PRN
[2020-02-05] MEDS ORDERED: DIPHENHYDRAMINE HCL 25 MG in NORMAL SALINE 50 ML IV PRN (08:26)
[2020-02-05 08:27] VITALS: BP 124/74
[2020-02-05] MEDS ORDERED: HYDROMORPHONE HCL INJ/PF 2 MG/ML AMPULE IV PRN (08:28)
== END 2020-02-05 10:15 | disposition home or self-care (01) ==
LOC: II 08:11 → 5TH 08:14 → II 10:15
PROVIDERS: ATTEND Internal Medicine
DX: D57.1 Sickle-cell disease without crisis (principal); E86.0 Dehydration; R52 Pain, unspecified
CPT/HCPCS: 96365; 96375; 96361; J1200; J1170; J1642

== ENCOUNTER 2020-02-09 08:12 | Outpatient (CLI) | payer MEDICARE, MEDICAID ==
[~2020-02-09 08:12] MED LIST changes: +DIPHENHYDRAMINE HCL 25 MG in NORMAL SALINE 50 ML IV PRN; +HYDROMORPHONE HCL INJ/PF 2 MG/ML AMPULE IV PRN; +NORMAL SALINE 1000 ML 1,000 ML IV PRN; -NORMAL SALINE 1000 ML @ AS DIRECTED IV PRN
[2020-02-09 08:40] VITALS: BP 111/73
== END 2020-02-09 10:15 | disposition home or self-care (01) ==
LOC: II 08:12 → 5TH 08:15 → II 10:15
PROVIDERS: ATTEND Internal Medicine
DX: D57.1 Sickle-cell disease without crisis (principal); E86.0 Dehydration; R52 Pain, unspecified
CPT/HCPCS: 96365; 96375; 96361; J1200; J1170; J1642

== ENCOUNTER 2020-02-10 08:17 | Outpatient (CLI) | payer MEDICARE, MEDICAID ==
[2020-02-10 08:50] VITALS: BP 122/94
== END 2020-02-10 09:45 | disposition home or self-care (01) ==
LOC: II 08:17 → 5TH 08:19 → II 09:45
PROVIDERS: ATTEND Internal Medicine
DX: D57.1 Sickle-cell disease without crisis (principal); E86.0 Dehydration; R52 Pain, unspecified
CPT/HCPCS: 96365; 96375; 96361; J1200; J1170; J1642

== ENCOUNTER 2020-02-12 08:06 | Outpatient (CLI) | payer MEDICARE, MEDICAID ==
[2020-02-12 08:14] VITALS: BP 151/76
== END 2020-02-12 10:00 | disposition home or self-care (01) ==
LOC: II 08:06 → 5TH 08:15 → II 10:00
PROVIDERS: ATTEND Internal Medicine
DX: D57.1 Sickle-cell disease without crisis (principal); E86.0 Dehydration; R52 Pain, unspecified
CPT/HCPCS: 96365; 96375; 96361; J1200; J1170; J1642

== ENCOUNTER 2020-02-16 08:35 | Outpatient (CLI) | payer MEDICARE, MEDICAID ==
[~2020-02-16 08:35] MED LIST changes: -NORMAL SALINE 1000 ML 1,000 ML IV PRN; +NORMAL SALINE 1000 ML @ AS DIRECTED IV PRN
[2020-02-16 08:53] VITALS: BP 111/72
== END 2020-02-16 10:15 | disposition home or self-care (01) ==
LOC: 5TH 08:35 → II 08:35
PROVIDERS: ATTEND Internal Medicine
DX: D57.1 Sickle-cell disease without crisis (principal); E86.0 Dehydration; R52 Pain, unspecified
CPT/HCPCS: 96365; 96375; 96361; J1200; J1170; J1642

== ENCOUNTER 2020-02-17 08:10 | Outpatient (CLI) | payer MEDICARE, MEDICAID ==
[2020-02-17 08:19] VITALS: BP 127/75
== END 2020-02-17 09:30 | disposition home or self-care (01) ==
LOC: II 08:10 → 5TH 08:11 → II 09:30
PROVIDERS: ATTEND Internal Medicine
DX: D57.1 Sickle-cell disease without crisis (principal); E86.0 Dehydration; R52 Pain, unspecified
CPT/HCPCS: 96365; 96375; 96361; J1200; J1170; J1642

== ENCOUNTER 2020-02-19 08:11 | Outpatient (CLI) | payer MEDICARE, MEDICAID ==
[2020-02-19 08:25] VITALS: BP 136/107
== END 2020-02-19 10:00 | disposition home or self-care (01) ==
LOC: II 08:11 → 5TH 08:13 → II 10:00
PROVIDERS: ATTEND Internal Medicine
DX: D57.1 Sickle-cell disease without crisis (principal); E86.0 Dehydration; R52 Pain, unspecified
CPT/HCPCS: 96365; 96375; 96361; J1200; J1170; J1642

== ENCOUNTER 2020-02-23 10:05 | Outpatient (CLI) | payer MEDICARE, MEDICAID ==
[~2020-02-23 10:05] MED LIST changes: +NORMAL SALINE 1000 ML 1,000 ML IV PRN; -NORMAL SALINE 1000 ML @ AS DIRECTED IV PRN
[2020-02-23 10:55] VITALS: BP 119/74
== END 2020-02-23 12:00 | disposition home or self-care (01) ==
LOC: II 10:05 → 5TH 10:07 → II 12:00
PROVIDERS: ATTEND Internal Medicine
DX: D57.1 Sickle-cell disease without crisis (principal); E86.0 Dehydration; R52 Pain, unspecified
CPT/HCPCS: 96365; 96375; 96361; J1200; J1170; J1642

== ENCOUNTER 2020-02-24 07:52 | Outpatient (CLI) | payer MEDICARE, MEDICAID ==
[2020-02-24 09:01] VITALS: BP 145/80
== END 2020-02-24 09:36 | disposition home or self-care (01) ==
LOC: II 07:52 → 5TH 07:52 → II 09:36
PROVIDERS: ATTEND Internal Medicine
DX: D57.1 Sickle-cell disease without crisis (principal); E86.0 Dehydration; R52 Pain, unspecified
CPT/HCPCS: 96365; 96375; 96361; J1200; J1170; J1642

== ENCOUNTER 2020-02-26 08:16 | Outpatient (CLI) | payer MEDICARE, MEDICAID ==
[2020-02-26 09:37] VITALS: BP 128/83
== END 2020-02-26 09:30 | disposition home or self-care (01) ==
LOC: II 08:16 → 5TH 08:19 → II 09:30
PROVIDERS: ATTEND Internal Medicine
DX: D57.1 Sickle-cell disease without crisis (principal); E86.0 Dehydration; R52 Pain, unspecified
CPT/HCPCS: 96365; 96375; 96361; J1200; J1170; J1642

== ENCOUNTER 2020-03-01 10:10 | Outpatient (CLI) | payer MEDICARE, MEDICAID ==
[2020-03-01 10:31] VITALS: BP 121/81
== END 2020-03-01 12:01 | disposition home or self-care (01) ==
LOC: II 10:10 → 5TH 10:18 → II 12:01
PROVIDERS: ATTEND Internal Medicine
DX: D57.1 Sickle-cell disease without crisis (principal); E86.0 Dehydration; R52 Pain, unspecified
CPT/HCPCS: 96365; 96375; 96361; J1200; J1170; J1642

== ENCOUNTER 2020-03-02 08:38 | Outpatient (CLI) | payer MEDICARE, MEDICAID ==
[2020-03-02 09:13] VITALS: BP 140/78
--- OUTSIDE RECORDS SUMMARY | 2020-03-03 18:04 | XMS REPORT ---
:1980 [facility] [place] [address] [place] [address] Care Team Providers Name Role Phone NONE Primary Care Physician Unavailable LIBBY MORALEZ Attending Clinician Unavailable DAVI STYLES Attending Clinician Unavailable Vignesh Donato Attending Clinician Unavailable DANE BRUNER Attending Clinician Unavailable MARY CHENG Attending Clinician Unavailable KAT BENITEZ Attending Clinician Unavailable TATY BOWEN Attending Clinician Unavailable OTIS PENN Attending Clinician Unavailable REBEKAH Attending Clinician Unavailable PUSHPA PATEL Attending Clinician Unavailable STEPHANY SANTA Attending Clinician Unavailable JAMES Attending Clinician Unavailable Aster FRAZIER Attending Clinician Unavailable Mckenzie KYLE Attending Clinician Unavailable STEPHANY PAREDES Attending Clinician Unavailable JARED DONOVAN Attending Clinician Unavailable Lizeth GAR Attending Clinician Unavailable LIBBY MORALEZ Admitting Clinician Unavailable DAVI STYLES Admitting Clinician Unavailable WHITNEY CONTRERAS Admitting Clinician Unavailable Chirag WARD Admitting Clinician Unavailable STEPHANY PAREDES Admitting Clinician Unavailable Allergies, Adverse Reactions, Alerts Allergy Allergy Status Severity Reaction(s) Onset Inactive Treating C omments Name Type Date Date Clinician Insulin Propensity Inactive Other (See Beef to adverse Comments) 5-24 reactions 00:00: 00 Insulin Propensity Active Low Rash Other Pork to adverse 5-24 react ion(s reactions 00:00: ): 00 ItchingP t. States allergy to pork. Pt has tolerate d enoxapar in on numerous admissio ns 01/03/13 Ketorolac Propensity Active High Anaphylaxis Tromethami to adverse 5-24 ne reactions 00:00: 00 Insulin Propensity Active Other (See Beef to adverse Comments) 5-24 reactions 00:00: 00 Insulin Propensity Active Rash Other Pork to adverse 1-10 react ion(s reactions 00:00: ): to drug 00 ItchingP t. States allergy to pork. Pt has tolerate d enoxapar in on numerous admissio ns 01/03/13 Ketorolac Propensity Active Severe Anaphylaxis Tromethami to adverse 1-10 ne reactions 00:00: to drug 00 Latex, Propensity Active Mild Rash Natural to adverse 1-10 Rubber reactions 00:00: to drug 00 Levofloxac Propensity Active Severe Anaphylaxis in to adverse 1-10 reactions 00:00: to drug 00 Meperidine Propensity Active Severe Anaphylaxis Other to adverse 1-10 react ion(s reactions 00:00: ): to drug Anaphyla xi s Morphine Propensity Active Severe Other (See O ther to adverse Comments) 1-10 daphne ction(s reactions 00:00: ): to drug 00 Anaphyla xi sPt take s dilaudid w/out complica ti onsSOB A ND TONGUE SWELLING Ondansetro Propensity Active Severe Swelling r maddy n Hcl (Pf) to adverse 1-10 reactions 00:00: to drug 00 Penicillin Propensity Active Mild Nausea And Other s to adverse Vomiting 1-10 reac tion(s reactions 00:00: ): Cristian sea to drug And Vomiting Pork/Porci Propensity Active Mild Rash Ot her ne to adverse 1-10 react ion(s Containing reactions 00:00: ): Rash Products to drug Promethazi Propensity Active Severe Nausea Ot her ne to adverse 1-10 react ion(s reactions 00:00: ): to drug Shortnes s Of BreathOt he r reaction (s ): Nause a And Vomiting Ketorolac Propensity Active Swelling To ngue to adverse 1-10 swell ing reactions 00:00: to drug 00 Amoxicilli Propensity Active Severe Shortness Of 0 Tolerated n to adverse Breath 1-10 cours e of reactions 00:00: ceftri axon to drug 00 e 11/29 Codeine Propensity Active Severe Hives to adverse 1-10 reactions 00:00: to drug 00 Fentanyl Propensity Active Severe Shortness Of to adverse Breath 1-10 reactions 00:00: to drug Insulin Propensity Active Beef to adverse 1-10 reactions 00:00: to drug 00 Ondansetro Propensity Active High Swelling r maddy n Hcl (Pf) to adverse 4-07 reactions 00:00: 00 Amoxicilli Propensity Active High Shortness Of Tolerated n to adverse Breath 8-17 cours e of reactions 00:00: ceftri axon 00 e 11/29 Codeine Propensity Active High Hives to adverse 8-17 reactions 00:00: 00 Fentanyl Propensity Active High Shortness Of to adverse Breath 8-17 reactions 00:00: 00 Insulin,Po Propensity Active High Rash Pt . States rk to adverse 8-17 aller gy to reactions 00:00: pork. Pt 00 has tolerate d enoxapar in on numerous admissio ns 01/03/13 Ketorolac Propensity Active High Shortness Of to adverse Breath 8-17 reactions 00:00: 00 Latex Propensity Active Low Rash to adverse 8-17 reactions 00:00: 00 Levofloxac Propensity Active High Anaphylaxis in to adverse 8-17 reactions 00:00: 00 Meperidine Propensity Active High Anaphylaxis to adverse 8-17 reactions 00:00: 00 Penicillin Propensity Inactive Low Nausea And Other s to adverse Vomiting 8-17 reac tion(s reactions 00:00: ): Cristian sea 00 And Vomiting Insulin Propensity Inactive High Shortness Of Pork Regular to adverse Breath 8-17 Insul in reactions 00:00: 00 Penicillin Propensity Active Low Nausea And Other s to adverse Vomiting 8-17 reac tion(s reactions 00:00: ): Cristian sea 00 And Vomiting Insulin Propensity Active High Shortness Of Pork Regular to adverse Breath 8-17 Insul in reactions 00:00: 00 Latex, Drug Inactive Low Rash Natural Allergy 8-16 Rubber 00:00: 00 Pork/Porci Drug Inactive Low Rash Othe r ne Allergy 8-16 reaction (s Containing 00:00: ): Ra sh Products 00 Promethazi Drug Active High Nausea Only O ther ne Allergy 8-16 reaction (s 00:00: ): 00 Shortnes s Of BreathOt he r reaction (s ): Nause a And Vomiting Ot her reaction (s ): Shortnes s Of BreathOt he r reaction (s ): Nause a And Vomiting Ot her reaction (s ): Nause a And Vomiting Latex, Drug Active Low Rash Natural Allergy 8-16 Rubber 00:00: 00 Pork/Porci Drug Active Low Rash Other ne Allergy 816 reaction (s Containing 00:00: ): Ra sh Products 00 Amoxicilli Allergy to Active n Drug (Ingredien (Finding) t(s): amoxicilli n) Demerol Allergy to Active (Ingredien Drug t(s): (Finding) meperidine ) Famotidine Allergy to Active Shock/Uncons (Ingredien Drug ciousness t(s): (Finding) famotidine ) FentaNYL Allergy to Active (Ingredien Drug t(s): (Finding) fentanyl) Ketorolac Allergy to Active Tromethami Drug ne (Finding) (Ingredien t(s): ketorolac tromethami ne) Latex [id number] Active Levaquin Allergy to Active (Ingredien Drug t(s): (Finding) levofloxac in) Morphine Allergy to Active Sulfate Drug (Ingredien (Finding) t(s): morphine) Pepcid Allergy to Active Shock/Uncons Drug ciousness (Finding) TraMADol Allergy to Active HCl Drug (Ingredien (Finding) t(s): tramadol) Zofran Allergy to Active (Ingredien Drug t(s): (Finding) ondansetro n) Medications Ordered Filled Start Stop Current Ordering Indication Dosage Frequency Signature Comments Components Medication Medication Date Date Medication? Clinician (SIG) Name Name Doxycycline 2019-0 Yes 1 Hyclate 8- 00:00: 00 Zithromax 2020-0 2020- No Z-Alex 2-06 05 00:00: 16:14 00 :45 IBU 2019-0 Yes 1 1-24 00:00: 00 Hydroxyurea 2019-1 Yes 3 0-10 00:00: 00 Influenza 2019- 2019- No .5mL QIV 008 10 00:00: 00:00 00 :00 Potassium 2019-0 2019- No 20meq Chloride ER 01-19 10 00:00: 00:00 00 :00 Dilaudid 2019-0 2019- No 1 9-15 10- 00:00: 11:37 00 :26 Colace 2019-0 Yes 1 7-12 00:00: 00 Endari 0 2020- No 6-06 05-29 00:00: 16:14 00 :30 oxyCODONE Yes Hb-SS 10mg Take 1 Take 1 (ROXICODONE 4-06 disease tablet (10 t ablet ) 10 mg 00:00: without mg total) (10 m g immediate 00 crisis by mouth total) by release ([facility]) every mouth tablet eight (8) every hours as eight (8) needed for hours as pain. needed for pain. methadone Yes Hb-SS 5mg Take 1 Take 1 (DOLOPHINE) 4-06 disease tablet (5 ta blet (5 5 MG tablet 00:00: without mg total) m g total) 00 crisis by mouth by mouth ([facility]) Two (2) Two (2) times a times a day. One day. One month month supply. supply. sodium No 1000mL 1,000 mL, chloride 4-02 Intravenou 0.9 % bolus 00:44: s, at 1,000 mL 39 1,000 mL/hr, Once, Tu07/22/18 at 0045, For 1 dose folic acid Yes Hb-SS 1mg Take 1 Take 1 (FOLVITE) 1 4-02 disease tablet (1 ta blet (1 MG tablet 00:00: without mg total) mg total) 00 crisis by mouth by mouth ([facility]) daily. daily. hydroxyurea Yes Hb-SS Take 1500 Allen e 1500 (HYDREA) 4-02 disease mg by mg by 500 mg 00:00: without mouth mouth capsule 00 crisis daily daily ([facility]) baclofen Yes Priapism 10mg Take 1 Take 1 (LIORESAL) 4-02 tablet (10 tabl et 10 MG 00:00: mg total) (10 mg tablet 00 by mouth total) by nightly. mouth nightly. DiphenhydrA 2020- No 25mg MINE HCl 3-20 10-10 00:00: 00:00 00 :00 Dilaudid 0 2020- No 3mg 3-07 10-10 00:00: 00:00 00 :00 Heparin 2018-0 2020- No 5mL Sodium 3-07 10-10 Flush 00:00: 00:00 00 :00 methadone 2019-0 No Hb-SS 5MG Take 1 Take 1 (DOLOPHINE) 306 disease tablet (5 ta blet (5 5 MG tablet 00:00: without mg total) m g total) 00 crisis by mouth by mouth ([facility]) Two (2) Two (2) times a times a day. One day. One month month supply. supply. oxyCODONE No Hb-SS 10MG Take 1 Take 1 (ROXICODONE 06 disease tablet (10 t ablet ) 10 mg 00:00: without mg total) (10 m g immediate 00 crisis by mouth total) by release ([facility]) every mouth tablet eight (8) every hours as eight (8) needed for hours as pain. needed for pain. OxyCODONE Yes 1 HCl 06 00:00: 00 Hydration 2019- No 1000mL 1000mL NS 06-25 10-10 00:00: 00:00 00 :00 methadone 2018- No Hb-SS 5MG Take 1 Take 1 (DOLOPHINE) 06-25 04 disease tablet (5 ta blet (5 5 MG tablet 00:00: 00:00 without mg total) m g total) 00 :00 crisis by mouth by mouth ([facility]) Two (2) Two (2) times a times a day. One day. One month month supply. supply. oxyCODONE 2018- No Hb-SS 10MG Take 1 Take 1 (ROXICODONE 06-25 04-02 disease tablet (10 t ablet ) 10 mg 00:00: 00:00 without mg total) (10 m g immediate 00 :00 crisis by mouth total) by release ([facility]) every mouth tablet eight (8) every hours as eight (8) needed for hours as pain. needed for pain. docusate Yes Constipatio 100mg Take 1 Allen e 1 sodium 207 n due to capsule capsule (COLACE) 00:00: opioid (100 mg (100 mg 100 MG 00 therapy total) by total) by capsule mouth Two mouth Tw o (2) times (2) times a day (at a day (at 8am and 8am and 3pm). 3pm). ibuprofen Yes Hb-SS 600mg Take 1 Take 1 (IBU) 600 2-07 disease tablet tablet MG tablet 00:00: without (600 mg (600 mg 00 crisis total) by total) by ([facility]) mouth mouth every six every six (6) hours (6) hours as needed as needed for pain. for pain. senna 2018- Yes Constipatio 2{tbl} Take 2 Take 2 (SENNA LAX) 05-29 n due to tablets by tablets 8.6 mg 00:00: opioid mouth by mouth tablet 00 therapy nightly as nightl y needed for as needed constipati for on. constipat ion. pseudoephed 2019- No Priapism 60mg Take 2 Allen e 2 rine 05-29 tablets tablets (SUDAFED) 00:00: 23:59 (60 mg (60 mg 30 MG 00 :00 total) by total) by tablet mouth mouth nightly. nightly. baclofen 2018- No Priapism 10MG Take 1 Take 1 (LIORESAL) 05-29 tablet (10 tabl et 10 MG 00:00: 00:00 mg total) (10 mg tablet 00 :00 by mouth total) by nightly. mouth nightly. folic acid 2018- No Hb-SS 1MG Take 1 Take 1 (FOLVITE) 1 05-29 disease tablet (1 ta blet (1 MG tablet 00:00: 00:00 without mg total) mg total) 00 :00 crisis by mouth by mouth ([facility]) daily. daily. hydroxyurea 2018- No Hb-SS Take 1500 Allen e 1500 (HYDREA) 05-29 disease mg by mg by 500 mg 00:00: 00:00 without mouth mouth capsule 00 :00 crisis daily daily ([facility]) terbutaline 2018- No 5mg Take 1 Take 1 (BRETHINE) 05-29 tablet (5 table t (5 5 mg tablet 00:00: 23:59 mg total) mg total) 00 :00 by mouth by mouth every six every six (6) hours (6) hours as needed as needed (priapism) (priapism . ). methadone 2018- No Hb-SS 5MG Take 1 Take 1 (DOLOPHINE) 05-29 disease tablet (5 ta blet (5 5 MG tablet 00:00: 00:00 without mg total) m g total) 00 :00 crisis by mouth by mouth ([facility]) Two (2) Two (2) times a times a day. One day. One month month supply. supply. oxyCODONE 2018- No Hb-SS 10MG Take 1 Take 1 (ROXICODONE 05-29 disease tablet (10 t ablet ) 10 mg 00:00: 00:00 without mg total) (10 m g immediate 00 :00 crisis by mouth total) by release ([facility]) every mouth tablet eight (8) every hours as eight (8) needed for hours as pain. needed for pain. Baclofen Yes 1 05-21 00:00: 00 Folic Acid Yes 1 05-21 00:00: 00 Methadone Yes 1 HCl 05-21 00:00: 00 Pseudoephed Yes 1 rine HCl 05-21 00:00: 00 methadone 2018- No Hb-SS 5MG Take 1 Take 1 (DOLOPHINE) 04-23 disease tablet (5 ta blet (5 5 MG tablet 00:00: 00:00 without mg total) m g total) 00 :00 crisis by mouth by mouth ([facility]) Two (2) Two (2) times a times a day. One day. One month month supply. supply. oxyCODONE 2018- No Hb-SS 10MG Take 1 Take 1 (ROXICODONE 04-23 disease tablet (10 t ablet ) 10 mg 00:00: 00:00 without mg total) (10 m g immediate 00 :00 crisis by mouth total) by release ([facility]) every mouth tablet eight (8) every hours as eight (8) needed for hours as pain. needed for pain. hydroxyurea 2018- No Hb-SS Take 1500 Allen e 1500 (HYDREA) 04-23 disease mg by mg by 500 mg 00:00: 00:00 without mouth mouth capsule 00 :00 crisis daily daily ([facility]) methadone 2017-04- No Hb-SS 5MG Take 1 Take 1 (DOLOPHINE) 05-26 disease tablet (5 ta blet (5 5 MG tablet 00:00: 00:00 without mg total) m g total) 00 :00 crisis by mouth by mouth ([facility]) Two (2) Two (2) times a times a day. One day. One month month supply. supply. oxyCODONE 2017-04- No Hb-SS 10MG Take 1 Take 1 (ROXICODONE 2-07 21- disease tablet (10 t ablet ) 10 mg 00:00: 00:00 without mg total) (10 m g immediate 00 :00 crisis by mouth total) by release ([facility]) every mouth tablet eight (8) every hours as eight (8) needed for hours as pain. needed for pain. docusate 2017-04- No Constipatio 100MG Take 1 Allen e 1 sodium 05-18 n due to capsule capsule (COLACE) 00:00: 00:00 opioid (100 mg (100 mg 100 MG 00 :00 therapy total) by total) by capsule mouth Two mouth Tw o (2) times (2) times a day (at a day (at 8am and 8am and 3pm). 3pm). ibuprofen 2017-04- No Hb-SS 600MG Take 1 Take 1 (IBU) 600 05-17 disease tablet tablet MG tablet 00:00: 00:00 without (600 mg (600 mg 00 :00 crisis total) by total) by ([facility]) mouth mouth every six every six (6) hours (6) hours as needed as needed for pain. for pain. hydroxyurea 2017-04- No Hb-SS Take 1500 Allen e 1500 (HYDREA) 05-17 disease mg by mg by 500 mg 00:00: 00:00 without mouth mouth capsule 00 :00 crisis daily daily ([facility]) methadone 2017-04 No Hb-SS 5MG Take 1 Take 1 (DOLOPHINE) 04-23 disease tablet (5 ta blet (5 5 MG tablet 00:00: without mg total) m g total) 00 crisis by mouth by mouth ([facility]) Two (2) Two (2) times a times a day. One day. One month month supply. supply. oxyCODONE 2017-04 No Hb-SS 10MG Take 1 Take 1 (ROXICODONE 0-30 disease tablet (10 t ablet ) 10 mg 00:00: without mg total) (10 m g immediate 00 crisis by mouth total) by release ([facility]) every mouth tablet eight (8) every hours as eight (8) needed for hours as pain. needed for pain. baclofen 2017-04- No Priapism 10MG Take 1 Take 1 (LIORESAL) 05-29 tablet (10 tabl et 10 MG 00:00: 00:00 mg total) (10 mg tablet 00 :00 by mouth total) by nightly. mouth nightly. pseudoephed 2017-04- No Priapism 60MG Take 2 Allen e 2 rine 05-29 tablets tablets (SUDAFED) 00:00: 00:00 (60 mg (60 mg 30 MG 00 :00 total) by total) by tablet mouth mouth nightly. nightly. senna 2017-04- No Constipatio 2{tbl} Take 2 Take 2 (SENNA LAX) 005-29 n due to tablets by tablets 8.6 mg 00:00: 00:00 opioid mouth by mouth tablet 00 :00 therapy nightly as nightl y needed for as needed constipati for on. constipat ion. hydroxyurea 2017-04- No Hb-SS Take 1500 Allen e 1500 (HYDREA) 0- 11-26 disease mg by mg by 500 mg 00:00: 00:00 without mouth mouth capsule 00 :00 crisis daily daily ([facility]) methadone 2017-04- No Hb-SS 5MG Take 1 Take 1 (DOLOPHINE) 0-02 10-30 disease tablet (5 ta blet (5 5 MG tablet 00:00: 00:00 without mg total) m g total) 00 :00 crisis by mouth by mouth ([facility]) Two (2) Two (2) times a times a day. One day. One month month supply. supply. oxyCODONE 2017-04- No Hb-SS 10MG Take 1 Take 1 (ROXICODONE 0-02 10-30 disease tablet (10 t ablet ) 10 mg 00:00: 00:00 without mg total) (10 m g immediate 00 :00 crisis by mouth total) by release ([facility]) every mouth tablet eight (8) every hours as eight (8) needed for hours as pain. needed for pain. IBU 600 mg 2017- No Hb-SS TAKE 1 TAKE 1 tablet 01-16 11- disease TABLET BY TABLET BY 00:00: 00:00 without MOUTH MOUTH 00 :00 crisis EVERY 6 EVERY 6 ([facility]) HOURS HOURS A S NEEDED FOR NEEDED PAIN FOR PAIN folic acid 2018- No Hb-SS 1MG Take 1 Take 1 (FOLVITE) 1 12-25 disease tablet (1 ta blet (1 MG tablet 00:00: 00:00 without mg total) mg total) 00 :00 crisis by mouth by mouth ([facility]) daily. daily. hydroxyurea No Hb-SS Take 1500 Allen e 1500 (HYDREA) 12-25 disease mg by mg by 500 mg 00:00: 00:00 without mouth mouth capsule 00 :00 crisis daily daily ([facility]) methadone 2017- No Hb-SS 5MG Take 1 Take 1 (DOLOPHINE) 12-25 disease tablet (5 ta blet (5 5 MG tablet 00:00: 00:00 without mg total) m g total) 00 :00 crisis by mouth by mouth ([facility]) Two (2) Two (2) times a times a day. One day. One month month supply. supply. oxyCODONE No Hb-SS 10MG Take 1 Take 1 (ROXICODONE 12-25 disease tablet (10 t ablet ) 10 mg 00:00: 00:00 without mg total) (10 m g immediate 00 :00 crisis by mouth total) by release ([facility]) every mouth tablet eight (8) every hours as eight (8) needed for hours as pain. needed for pain. hydroxyurea No Hb-SS Take 1500 Allen e 1500 (HYDREA) 11-27 disease mg by mg by 500 mg 00:00: 00:00 without mouth mouth capsule 00 :00 crisis daily daily ([facility]) oxyCODONE 2017- No Hb-SS 10mg Take 1 Take 1 (ROXICODONE 11-27 disease tablet (10 t ablet ) 10 mg 00:00: 00:00 without mg total) (10 m g immediate 00 :00 crisis by mouth total) by release ([facility]) every mouth tablet eight (8) every hours as eight (8) needed for hours as pain. needed for pain. folic acid 2017- No Hb-SS 1mg Take 1 Take 1 (FOLVITE) 1 11-27 disease tablet (1 ta blet (1 MG tablet 00:00: 00:00 without mg total) mg total) 00 :00 crisis by mouth by mouth ([facility]) daily. daily. methadone 2017- No Hb-SS 5mg Take 1 Take 1 (DOLOPHINE) 11-27 disease tablet (5 ta blet (5 5 MG tablet 00:00: 00:00 without mg total) m g total) 00 :00 crisis by mouth by mouth ([facility]) Two (2) Two (2) times a times a day. One day. One month month supply. supply. hydroxyurea 2017- No Hb-SS Take 1500 Allen e 1500 (HYDREA) 11-08 disease mg by mg by 500 mg 00:00: 00:00 without mouth mouth capsule 00 :00 crisis daily daily ([facility]) oxyCODONE 2017- No Hb-SS 10MG Take 1 Take 1 (ROXICODONE 10-30 disease tablet (10 t ablet ) 10 mg 00:00: 00:00 without mg total) (10 m g immediate 00 :00 crisis by mouth total) by release ([facility]) every mouth tablet eight (8) every hours as eight (8) needed for hours as pain. needed for pain. methadone 2017- No Hb-SS 5MG Take 1 Take 1 (DOLOPHINE) 10-30 disease tablet (5 ta blet (5 5 MG tablet 00:00: 00:00 without mg total) m g total) 00 :00 crisis by mouth by mouth ([facility]) Two (2) Two (2) times a times a day. One day. One month month supply. supply. hydroxyurea 2017- No Hb-SS Take 1500 Allen e 1500 (HYDREA) 10-30 disease mg by mg by 500 mg 00:00: 00:00 without mouth mouth capsule 00 :00 crisis daily daily ([facility]) acetaminoph Yes 1000mg Take 2 Take 2 en 7- tablets tablets (TYLENOL) 00:00: (1,000 mg (1,00 0 mg 500 MG 00 total) by total) by tablet mouth mouth every every eight (8) eight (8) hours as hours as needed. needed. hydroxyurea 2017- No Hb-SS Take 1500 Allen e 1500 (HYDREA) 09-30 disease mg by mg by 500 mg 00:00: 00:00 without mouth mouth capsule 00 :00 crisis daily daily ([facility]) oxyCODONE 2017- No Hb-SS 10MG Take 1 Take 1 (ROXICODONE 09-30 disease tablet (10 t ablet ) 10 mg 00:00: 00:00 without mg total) (10 m g immediate 00 :00 crisis by mouth total) by release ([facility]) every mouth tablet eight (8) every hours as eight (8) needed for hours as pain. needed for pain. methadone 2017- No Hb-SS 5MG Take 1 Take 1 (DOLOPHINE) 09-30 disease tablet (5 ta blet (5 5 MG tablet 00:00: 00:00 without mg total) m g total) 00 :00 crisis by mouth by mouth ([facility]) Two (2) Two (2) times a times a day. One day. One month month supply. supply. docusate 2017- No Constipatio 100mg Take 1 Allen e 1 sodium 09-23 11-27 n due to capsule capsule ([facility]) 00:00: 00:00 opioid (100 mg (100 mg 100 MG 00 :00 therapy total) by total) by capsule mouth Two mouth Tw o (2) times (2) times a day (at a day (at 8am and 8am and 3pm). 3pm). senna 2017- No Constipatio 2{tbl} Take 2 Take 2 (SENNA LAX) 09-23 10-02 n due to tablets by tablets 8.6 mg 00:00: 00:00 opioid mouth by mouth tablet 00 :00 therapy nightly as nightl y needed for as needed constipati for on. constipat ion. glutamine, 2017- No 15g Take 15 g Take 15 g sickle 4-27 10-19 by mouth by mouth cell, 00:00: 00:00 Two (2) Two (2) (ENDARI) 5 00 :00 times a times a gram PwPk day. day. ibuprofen No Hb-SS Take 1 Take 1 (ADVIL,MOTR 08-16 disease tablet table t IN) 600 MG 00:00: 00:00 without (600 mg (600 mg tablet 00 :00 crisis total) by total) b y ([facility]) mouth mouth every 6 every 6 hours as hours as needed for needed pain. for pain. folic acid No Hb-SS 1MG Take 1 Take 1 (FOLVITE) 1 08-16 disease tablet (1 ta blet (1 MG tablet 00:00: 00:00 without mg total) mg total) 00 :00 crisis by mouth by mouth ([facility]) daily. daily. hydroxyurea 2017- No Hb-SS Take 1500 Allen e 1500 (HYDREA) 08-16 disease mg by mg by 500 mg 00:00: 00:00 without mouth mouth capsule 00 :00 crisis daily daily ([facility]) methadone No Hb-SS 5MG Take 1 Take 1 (DOLOPHINE) 08-16 disease tablet (5 ta blet (5 5 MG tablet 00:00: 00:00 without mg total) m g total) 00 :00 crisis by mouth by mouth ([facility]) Two (2) Two (2) times a times a day. One day. One month month supply. supply. oxyCODONE No Hb-SS 10MG Take 1 Take 1 (ROXICODONE 08-16 disease tablet (10 t ablet ) 10 mg 00:00: 00:00 without mg total) (10 m g immediate 00 :00 crisis by mouth total) by release ([facility]) every mouth tablet eight (8) every hours as eight (8) needed for hours as pain. needed for pain. oxyCODONE No Hb-SS 10MG Take 1 Take 1 (ROXICODONE 2-13 disease tablet (10 t ablet ) 10 mg 00:00: without mg total) (10 m g immediate 00 crisis by mouth total) by release ([facility]) every mouth tablet eight (8) every hours as eight (8) needed for hours as pain. needed for pain. methadone No Hb-SS 5MG Take 1 Take 1 (DOLOPHINE) 2-13 disease tablet (5 ta blet (5 5 MG tablet 00:00: without mg total) m g total) 00 crisis by mouth by mouth ([facility]) Two (2) Two (2) times a times a day. One day. One month month supply. supply. terbutaline 2017- No Priapism 5MG Take 1 Allen e 1 (BRETHINE) 06-04 0707 tablet (5 table t (5 5 mg tablet 00:00: 00:00 mg total) mg total) 00 :00 by mouth by mouth every six every six (6) hours (6) hours as needed. as needed. docusate 2017- No Constipatio 100MG Take 1 Allen e 1 sodium 06-04 06-04 n due to capsule capsule (COLACE) 00:00: 00:00 opioid (100 mg (100 mg 100 MG 00 :00 therapy total) by total) by capsule mouth Two mouth Tw o (2) times (2) times a day (at a day (at 8am and 8am and 3pm). 3pm). hydroxyurea No Hb-SS Take 1500 Allen e 1500 (HYDREA) 1-10 disease mg on mg on 500 mg 00:00: without Mon/Sat/Fr Sat/W ed/F capsule 00 crisis i and 2000 ri and ([facility]) mg on 2000 mg Tue/Thur/S on at/Sun Tue/Thur/ Sat/Sun baclofen 2017- No Priapism 10mg Take 1 Take 1 (LIORESAL) 1-10 10-19 tablet (10 tabl et 10 MG 00:00: 00:00 mg total) (10 mg tablet 00 :00 by mouth total) by nightly. mouth nightly. methadone 2016-04 No Hb-SS 5MG Take 1 Take 1 (DOLOPHINE) 2-18 disease tablet (5 ta blet (5 5 MG tablet 00:00: without mg total) m g total) 00 crisis by mouth by mouth ([facility]) Two (2) Two (2) times a times a day. One day. One month month supply. supply. oxyCODONE 2016-04 No Hb-SS 10MG Take 1 Take 1 (ROXICODONE 2-18 disease tablet (10 t ablet ) 10 mg 00:00: without mg total) (10 m g immediate 00 crisis by mouth total) by release ([facility]) every mouth tablet eight (8) every hours as eight (8) needed for hours as pain. needed for pain. hydroxyurea 2016-04 No Hb-SS Take 1500 Allen e 1500 (HYDREA) 1-30 disease mg on mg on 500 mg 00:00: without Sat/Sat/Fr Sat/ ed/F capsule 00 crisis i and 2000 ri and ([facility]) mg on 2000 mg Tue/Thur/S on at/Sun Tue/Thur/ Sat/Sun docusate 2016-04 No Constipatio 100MG Take 1 Allen e 1 sodium 1-15 n due to capsule capsule (COLACE) 00:00: opioid (100 mg (100 mg 100 MG 00 therapy total) by total) by capsule mouth Two mouth Tw o (2) times (2) times a day (at a day (at 8am and 8am and 3pm). 3pm). folic acid 2016-04 No Hb-SS 1MG Take 1 Take 1 (FOLVITE) 1 1-15 disease tablet (1 ta blet (1 MG tablet 00:00: without mg total) mg total) 00 crisis by mouth by mouth ([facility]) daily. daily. ibuprofen 2016-04 No Hb-SS Take 1 Take 1 (ADVIL,MOTR 1-15 disease tablet table t IN) 600 MG 00:00: without (600 mg (600 mg tablet 00 crisis total) by total) b y ([facility]) mouth mouth every 6 every 6 hours as hours as needed for needed pain. for pain. pseudoephed 2016-04- No Priapism 60mg Take 2 Allen e 2 rine 1-15 10-19 tablets tablets (SUDAFED) 00:00: 00:00 (60 mg (60 mg 30 MG 00 :00 total) by total) by tablet mouth mouth nightly. nightly. senna 2016-04- No Constipatio 2{tbl} Take 2 Take 2 (SENNA LAX) 1-15 06-04 n due to tablets by tablets 8.6 mg 00:00: 00:00 opioid mouth by mouth tablet 00 :00 therapy nightly as nightl y needed for as needed constipati for on. constipat ion. tobramycin- No 1drp 1 drop 1 drop dexamethaso -14 Every four Nancy ry ne 15:55: (4) hours four (4) (TOBRADEX) 58 while hours ophthalmic awake. while solution awake. tobramycin- 2017- No 1[drp] 1 drop 1 joanne p dexamethaso -14 10-19 Every four Nancy ry ne 15:55: 00:00 (4) hours four (4) (TOBRADEX) 58 :00 while hours ophthalmic awake. while solution awake. 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 Sod.Chlori de IV Pump Resv oxyCODONE No 5MG Q6H Oxycodone (ROXICODONE 09-29 06-23 5 Mg ) immediate 07:14: 18:04 Tablet release 18 :55 tablet 5 mg baclofen No 10MG Baclofen (LIORESAL) 09 10 Mg tablet 10 21:00: Tablet mg 00 pseudoephed No 60MG Pseudoephe rine 09-28 drine 30 (SUDAFED) 21:00: Mg Tablet tablet 60 00 mg ibuprofen No 600MG Q6H Ibuprofen (ADVIL,MOTR 09-28 600 Mg IN) tablet 10:00: Tablet 600 mg 00 oxyCODONE No 10MG Q4H Oxycodone (ROXICODONE 09-28-16 5 Mg ) immediate 10:00: 09:59 Tablet release 00 :00 tablet 10 mg senna No 2{tbl} Sennosides (SENOKOT) -08 8.6 Mg tablet 2 21:00: Tablet tablet 00 folic acid No 1MG Folic Acid (FOLVITE) 6-08 1 Mg tablet 1 mg 09:00: Tablet 00 hydroxyurea No 1500MG Hydroxyure (HYDREA) 09-27 a 500 Mg capsule 09:00: Capsule 1,500 mg 00 docusate No 100MG Docusate sodium 09-27 Sodium 100 (COLACE) 08:00: Mg Capsule capsule 100 00 mg methadone 5MG Methadone (DOLOPHINE) 09-27 06-22 10 Mg tablet 5 mg 06:00: 05:59 Tablet 00 :00 pregabalin No 75MG Pregabalin (LYRICA) 09-27 75 Mg capsule 75 00:00: Capsule mg 00 diphenhydrA No 25MG Q6H Diphenhydr MINE 09-26 amine 25 (BENADRYL) 23:46: Mg capsule/tab 34 Capsule/Ta let 25 mg blet amitriptyli No 25MG QD Amitriptyl ne (ELAVIL) 09-26 ine 50 Mg tablet 25 23:23: Tablet mg 13 terbutaline No 5MG Q6H Terbutalin (BRETHINE) 09-26 e 2.5 Mg tablet 5 mg 23:23: Tablet 13 docusate No 100MG Take 1 Take 1 sodium 09-25 capsule capsule (COLACE) 00:00: (100 mg (100 mg 100 MG 00 total) by total) by capsule mouth Two mouth Tw o (2) times (2) times a day (at a day (at 8am and 8am and 3pm). 3pm). folic acid No 1MG Take 1 Take 1 (FOLVITE) 1 09-25 tablet (1 tabl et (1 MG tablet 00:00: mg total) mg to frank) 00 by mouth by mouth daily. daily. hydroxyurea No Take 1500 Allen e 1500 (HYDREA) -06 mg on mg on 500 mg 00:00: Sat/Sat/Fr Sat/Sat / capsule 00 i and 2000 ri and mg on 2000 mg Tue/Thur/S on at/Sun Tue/Thur/ Sat/Sun methadone No 5MG Take 1 Take 1 (DOLOPHINE) 06 tablet (5 tabl et (5 5 MG tablet 00:00: mg total) mg total) 00 by mouth by mouth Two (2) Two (2) times a times a day. One day. One month month supply. supply. oxyCODONE No 10MG Q8H Take 1 Take 1 (ROXICODONE 6-06 tablet (10 tab let ) 10 mg 00:00: mg total) (10 mg immediate 00 by mouth total) by release every mouth tablet eight (8) every hours as eight (8) needed for hours as pain. needed for pain. folic acid No 1MG Take 1 Take 1 (FOLVITE) 1 6-06 tablet (1 tabl et (1 MG tablet 00:00: mg total) mg to frank) 00 by mouth by mouth daily. daily. hydroxyurea No Take 1500 Allen e 1500 (HYDREA) 6-06 mg on mg on 500 mg 00:00: Sat/Sat/Fr Sat/Sat / capsule 00 i and 2000 ri and mg on 2000 mg Tue/Thur/S on at/Sun Tue/Thur/ Sat/Sun docusate No 100MG Take 1 Take 1 sodium 6-06 capsule capsule (COLACE) 00:00: (100 mg (100 mg 100 MG 00 total) by total) by capsule mouth Two mouth Tw o (2) times (2) times a day (at a day (at 8am and 8am and 3pm). 3pm). oxyCODONE No 10MG Q8H Take 1 Take 1 (ROXICODONE 6-06 tablet (10 tab let ) 10 mg 00:00: mg total) (10 mg immediate 00 by mouth total) by release every mouth tablet eight (8) every hours as eight (8) needed for hours as pain. needed for pain. methadone No 5MG Take 1 Take 1 (DOLOPHINE) 6-06 tablet (5 tabl et (5 5 MG tablet 00:00: mg total) mg total) 00 by mouth by mouth Two (2) Two (2) times a times a day. One day. One month month supply. supply. oxyCODONE 2017- No 10MG Q8H Take 1 Take 1 (ROXICODONE 5-10 06-06 tablet (10 tab let ) 10 mg 00:00: 00:00 mg total) (10 mg immediate 00 :00 by mouth total) by release every mouth tablet eight (8) every hours as eight (8) needed for hours as pain. needed for pain. methadone 2016-2016- No 5MG Take 1 Take 1 (DOLOPHINE) 5-10 06-06 tablet (5 tabl et (5 5 MG tablet 00:00: 00:00 mg total) mg total) 00 :00 by mouth by mouth Two (2) Two (2) times a times a day. One day. One month month supply. supply. hydroxyurea 2017- No Take 1500 Allen e 1500 (HYDREA) 5-10 06-06 mg on mg on 500 mg 00:00: 00:00 Sat/Sat/Fr Sat/Sat /F capsule 00 :00 i and 2000 ri and mg on 2000 mg Tue/Thur/S on at/Sun Tue/Thur/ Sat/Sun baclofen No 10MG Take 1 Take 1 (LIORESAL) 4-14 tablet (10 tabl et 10 MG 00:00: mg total) (10 mg tablet 00 by mouth total) by nightly. mouth nightly. baclofen 2016- No Priapism 10MG Take 1 Take 1 (LIORESAL) 4-14 tablet (10 tabl et 10 MG 00:00: mg total) (10 mg tablet 00 by mouth total) by nightly. mouth nightly. pregabalin 2018- No Hb-SS 75MG Take 1 Take 1 (LYRICA) 75 4-14 08-08 disease capsule caps ule MG capsule 00:00: 00:00 without (75 mg (75 m g 00 :00 crisis total) by total) by ([facility]) mouth mouth nightly. nightly. pregabalin 2018- No 75MG Take 1 Take 1 (LYRICA) 75 4-14 04-14 capsule capsul e MG capsule 00:00: 23:59 (75 mg (75 mg 00 :00 total) by total) by mouth mouth nightly. nightly. ibuprofen No Take 1 Take 1 (ADVIL,MOTR 4-12 tablet tablet IN) 600 MG 00:00: (600 mg (600 m g tablet 00 total) by total) by mouth mouth every 6 every 6 hours as hours as needed needed during during pain pain crisis. crisis. senna 2017- No 2{tbl} QD Take 2 Take 2 (SENNA LAX) 4-12 tablets by tab lets 8.6 mg 00:00: mouth by mouth tablet 00 nightly as nightly needed for as needed constipati for on. constipat ion. senna No 2{tbl} QD Take 2 Take 2 (SENNA LAX) 4-12 tablets by tab lets 8.6 mg 00:00: mouth by mouth tablet 00 nightly as nightly needed for as needed constipati for on. constipat ion. ibuprofen No Take 1 Take 1 (ADVIL,MOTR 4-12 tablet tablet IN) 600 MG 00:00: (600 mg (600 m g tablet 00 total) by total) by mouth mouth every 6 every 6 hours as hours as needed needed during during pain pain crisis. crisis. pseudoephed 2017- No 60MG Take 2 Take 2 rine 4-12 04-12 tablets tablets (SUDAFED) 00:00: 23:59 (60 mg (60 mg 30 MG 00 :00 total) by total) by tablet mouth mouth nightly. nightly. pseudoephed 2017- No 60MG Take 2 Take 2 rine 4-12 04-12 tablets tablets (SUDAFED) 00:00: 23:59 (60 mg (60 mg 30 MG 00 :00 total) by total) by tablet mouth mouth nightly. nightly. docusate 2016- No 100MG Take 1 Take 1 sodium 4-12 06-06 capsule capsule (COLACE) 00:00: 00:00 (100 mg (100 mg 100 MG 00 :00 total) by total) by capsule mouth Two mouth Tw o (2) times (2) times a day (at a day (at 8am and 8am and 3pm). 3pm). amitriptyli 2015-04- No 25MG QD Take 1 Take 1 ne (ELAVIL) 2-21 12-21 tablet (25 tab let 25 MG 00:00: 23:59 mg total) (25 mg tablet 00 :00 by mouth total) by nightly as mouth needed for nightly sleep. as needed for sleep. amitriptyli 2015-04- No Other 25MG QD Take 1 Take 1 ne (ELAVIL) 2-21 12-21 insomnia tablet (25 tablet 25 MG 00:00: 23:59 mg total) (25 mg tablet 00 :00 by mouth total) by nightly as mouth needed for nightly sleep. as needed for sleep. folic acid 2015-04- No 1MG Take 1 Take 1 (FOLVITE) 1 2-10 10-06 tablet (1 tabl et (1 MG tablet 00:00: 00:00 mg total) mg to frank) 00 :00 by mouth by mouth daily. daily. heparin, 2015- No Heparin, porcine 10-23 07-05 Porcine (PF) 100 14:06: 02:59 (Pf) 100 unit/mL 31 :00 Unit/Ml injection Intravenou s Syringe guaiFENesin No 200MG Q4H Guaifenesi (ROBITUSSIN 10-22 n 100 Mg/5 ) 100 mg/5 12:42: Ml Oral mL syrup 09 Liquid 200 mg finasteride 2016- No 5MG Take 1 Take 1 (PROSCAR) 5 10-22 07-03 tablet (5 tabl et (5 mg tablet 00:00: 23:59 mg total) mg to frank) 00 :00 by mouth by mouth daily. daily. finasteride 2016- No 5MG Take 1 Take 1 (PROSCAR) 5 10-22 07-03 tablet (5 tabl et (5 mg tablet 00:00: 23:59 mg total) mg to frank) 00 :00 by mouth by mouth daily. daily. finasteride 2016- No 5MG Take 1 Take 1 (PROSCAR) 5 10-22 07-03 tablet (5 tabl et (5 mg tablet 00:00: 23:59 mg total) mg to frank) 00 :00 by mouth by mouth daily. daily. methadone 2015- No 5MG Methadone (DOLOPHINE) 10-21 07-16 5 Mg tablet 5 mg 21:00: 20:59 Tablet 00 :00 polyethylen No 17g Polyethyle e glycol 6-29 ne Glycol (MIRALAX) 21:00: 3350 17 packet 17 g 00 Gram Oral Powder Packet senna No 2{tbl} Sennosides (SENOKOT) 6-29 8.6 Mg tablet 2 21:00: Tablet tablet 00 fluticasone No 1{spray Fluticason (FLONASE) 10-14 } e 50 50 09:00: McG/Actuat mcg/actuati 00 ion Nasal on nasal [place],Susp spray 1 ension spray hydroxyurea No 1500MG Hydroxyure (HYDREA) 10-11 a 500 Mg capsule 09:00: Capsule 1,500 mg 00 hydroxyurea No 2000MG Hydroxyure (HYDREA) 10-10 a 500 Mg capsule 18:00: Capsule 2,000 mg 00 finasteride No 5MG Finasterid (PROSCAR) 10-10 e 5 Mg tablet 5 mg 09:00: Tablet 00 folic acid No 1MG Folic Acid (FOLVITE) 10-10 1 Mg tablet 1 mg 09:00: Tablet 00 docusate No 100MG Docusate sodium 10-10 Sodium 100 (COLACE) 08:00: Mg Capsule capsule 100 00 mg oxyCODONE 10MG Q6H Oxycodone (ROXICODONE 10-10 07-05 5 Mg ) immediate 01:27: 01:26 Tablet release 31 :31 tablet 10 mg acetaminoph No 650MG Q6H Acetaminop en 10-10 hen 325 Mg (TYLENOL) 01:04: Tablet tablet 650 57 mg amitriptyli No 25MG QD Amitriptyl ne (ELAVIL) 10-10 ine 25 Mg tablet 25 01:04: Tablet mg 57 baclofen No 10MG [id number] Baclofen (LIORESAL) 10-10 [id number] 10 Mg tablet 10 01:04: 3D Tablet mg 57 ibuprofen No 600MG Ibuprofen (ADVIL,MOTR 10-10 600 Mg IN) tablet 01:04: Tablet 600 mg 57 nalOXone No .4MG Naloxone (NARCAN) 10-10 0.4 Mg/Ml injection 01:04: Injection 0.4 mg 57 Solution pregabalin No 75MG Pregabalin (LYRICA) 10-10 75 Mg capsule 75 01:04: Capsule mg 57 pseudoephed No 60MG Pseudoephe rine 10-10 drine 30 (SUDAFED) 01:04: Mg Tablet tablet 60 57 mg senna No 2{tbl} QD Sennosides (SENOKOT) 6-21 8.6 Mg tablet 2 01:04: Tablet tablet 57 terbutaline No 5MG Q6H Terbutalin (BRETHINE) 6-21 e 2.5 Mg tablet 5 mg 01:04: Tablet 57 diphenhydrA No 25MG Q4H Diphenhydr MINE 6-20 amine 25 (BENADRYL) 16:38: Mg capsule/tab 43 Capsule/Ta let 25 mg blet promethazin No 12.5MG Promethazi e 6-20 ne 25 (PHENERGAN) 16:38: Mg/Ml injection 14 Injection 12.5 mg Solution hydroxyurea No Take 1500 Allen e 1500 (HYDREA) 6-20 mg on mg on 500 mg 00:00: Sat/Sat/Sat/Sat / capsule 00 i and 2000 ri and mg on 2000 mg Tue/Thur/S on at/Sun Tue/Thur/ Sat/Sun methadone No 5MG Take 1 Take 1 (DOLOPHINE) 6-20 tablet (5 tabl et (5 5 MG tablet 00:00: mg total) mg total) 00 by mouth by mouth Two (2) Two (2) times a times a day. One day. One month month supply. supply. oxyCODONE No 10MG Q8H Take 1 Take 1 (ROXICODONE 6-20 tablet (10 tab let ) 10 mg 00:00: mg total) (10 mg immediate 00 by mouth total) by release every mouth tablet eight (8) every hours as eight (8) needed for hours as pain. One needed month for pain. supply. One month supply. hydroxyurea No Take 1500 Allen e 1500 (HYDREA) 6-20 mg on mg on 500 mg 00:00: Sat/Sat/Sat/Sat / capsule 00 i and 2000 ri and mg on 2000 mg Tue/Thur/S on at/Sun Tue/Thur/ Sat/Sun oxyCODONE No 10MG Q8H Take 1 Take 1 (ROXICODONE 6-20 tablet (10 tab let ) 10 mg 00:00: mg total) (10 mg immediate 00 by mouth total) by release every mouth tablet eight (8) every hours as eight (8) needed for hours as pain. One needed month for pain. supply. One month supply. methadone 2016-0 No 5MG Take 1 Take 1 (DOLOPHINE) 6-20 tablet (5 tabl et (5 5 MG tablet 00:00: mg total) mg total) 00 by mouth by mouth Two (2) Two (2) times a times a day. One day. One month month supply. supply. diphenhydrA 2015-0 No Diphenhydr MINE 6-18 amine 50 (BENADRYL) 15:24: Mg/Ml 50 mg/mL 29 Injection injection Solution diphenhydrA 2016-0 No Diphenhydr MINE 6-18 amine 50 (BENADRYL) 15:24: Mg/Ml 50 mg/mL 29 Injection injection Solution metoclopram 2015-0 No 10MG Metoclopra july 6-18 mide 5 (REGLAN) 14:52: Mg/Ml injection 53 Injection 10 mg Solution baclofen 2015-0 No 10MG [id number] Take 1 Take 1 (LIORESAL) 5-24 [id number] tablet (10 tablet 10 MG 00:00: 3D mg total) (10 mg tablet 00 by mouth total) by Three (3) mouth times a Three (3) day as times a needed day as (for needed priapism). (for priapism) . methadone 2015-0 No 5MG Take 1 Take 1 (DOLOPHINE) 5-24 tablet (5 tabl et (5 5 MG tablet 00:00: mg total) mg total) 00 by mouth by mouth Two (2) Two (2) times a times a day. Two day. Two week week supply supply only. Do only. Do not fill not fill before before September 26, September 27, 2015. 2016. oxyCODONE 2015-0 No 10MG Q8H Take 1 Take 1 (ROXICODONE 5-24 tablet (10 tab let ) 10 mg 00:00: mg total) (10 mg immediate 00 by mouth total) by release every mouth tablet eight (8) every hours as eight (8) needed for hours as pain. Two needed week for pain. supply Two week only. Do supply not fill only. Do before not fill September 26, 2015. September 27, 2015. baclofen 2015-0 No 10MG [id number] Take 1 Take 1 (LIORESAL) 5-24 [id number] tablet (10 tablet 10 MG 00:00: 3D mg total) (10 mg tablet 00 by mouth total) by Three (3) mouth times a Three (3) day as times a needed day as (for needed priapism). (for priapism) . baclofen No 10MG Q.[id number] Take 1 Take 1 (LIORESAL) 5-24 [id number] tablet (10 tablet 10 MG 00:00: 3D mg total) (10 mg tablet 00 by mouth total) by Three (3) mouth times a Three (3) day as times a needed day as (for needed priapism). (for priapism) . pseudoephed 2016- No 60MG Take 2 Take 2 rine 5-24 05-24 tablets tablets (SUDAFED) 00:00: 23:59 (60 mg (60 mg 30 MG 00 :00 total) by total) by tablet mouth mouth nightly. nightly. pseudoephed 2016- No 60MG Take 2 Take 2 rine 5-24 05-24 tablets tablets (SUDAFED) 00:00: 23:59 (60 mg (60 mg 30 MG 00 :00 total) by total) by tablet mouth mouth nightly. nightly. pseudoephed 2016- No 60MG Take 2 Take 2 rine 5-24 05-24 tablets tablets (SUDAFED) 00:00: 23:59 (60 mg (60 mg 30 MG 00 :00 total) by total) by tablet mouth mouth nightly. nightly. methadone 2015- No 5MG Take 1 Take 1 (DOLOPHINE) 09-12 06-20 tablet (5 tabl et (5 5 MG tablet 00:00: 00:00 mg total) mg total) 00 :00 by mouth by mouth Two (2) Two (2) times a times a day. Two day. Two week week supply supply only. Do only. Do not fill not fill before before September 26, September 27, 2015. 2016. oxyCODONE 2015- No 10MG Q8H Take 1 Take 1 (ROXICODONE 09-12 06-20 tablet (10 tab let ) 10 mg 00:00: 00:00 mg total) (10 mg immediate 00 :00 by mouth total) by release every mouth tablet eight (8) every hours as eight (8) needed for hours as pain. Two needed week for pain. supply Two week only. Do supply not fill only. Do before not fill September 26, before 2015. September 27, 2015. hydroxyurea No 1500MG Hydroxyure (HYDREA) 5-09 a 500 Mg capsule 09:00: Capsule 1,500 mg 00 folic acid No 1MG Take 1 Take 1 (FOLVITE) 1 5-09 tablet (1 tabl et (1 MG tablet 00:00: mg total) mg to frank) 00 by mouth by mouth daily. daily. hydroxyurea No Take 1500 Allen e 1500 (HYDREA) 5-09 mg on mg on 500 mg 00:00: / capsule 00 i and 2000 ri and mg on 2000 mg Tue/Thur/S on at/Sun Tue/Thur/ Sat/Sun methadone No 5MG Take 1 Take 1 (DOLOPHINE) 5-09 tablet (5 tabl et (5 5 MG tablet 00:00: mg total) mg total) 00 by mouth by mouth Two (2) Two (2) times a times a day. day. oxyCODONE No 10MG Q8H Take 1 Take 1 (ROXICODONE 5-09 tablet (10 tab let ) 10 mg 00:00: mg total) (10 mg immediate 00 by mouth total) by release every mouth tablet eight (8) every hours as eight (8) needed for hours as pain. needed for pain. folic acid No 1MG Take 1 Take 1 (FOLVITE) 1 5-09 tablet (1 tabl et (1 MG tablet 00:00: mg total) mg to frank) 00 by mouth by mouth daily. daily. folic acid 0 No 1MG Take 1 Take 1 (FOLVITE) 1 5-09 tablet (1 tabl et (1 MG tablet 00:00: mg total) mg to frank) 00 by mouth by mouth daily. daily. hydroxyurea No Take 1500 Allen e 1500 (HYDREA) 5-09 mg on mg on 500 mg 00:00: Sat/Sat/Fr / capsule 00 i and 2000 ri and mg on 2000 mg Tue/Thur/S on at/Sun Tue/Thur/ Sat/Sun folic acid No 1MG Take 1 Take 1 (FOLVITE) 1 08-28 tablet (1 tabl et (1 MG tablet 00:00: mg total) mg to frank) 00 by mouth by mouth daily. daily. pseudoephed 2016- No 60MG Take 2 Take 2 rine 08-28-09 tablets tablets (SUDAFED) 00:00: 23:59 (60 mg (60 mg 30 MG 00 :00 total) by total) by tablet mouth mouth nightly. nightly. hydroxyurea 2015- No Take 1500 Allen e 1500 (HYDREA) 08-28 06-20 mg on mg on 500 mg 00:00: 00:00 Sat/Sat/Fr Sat/Sat / capsule 00 :00 i and 2000 ri and mg on 2000 mg Tue/Thur/S on at/Sun Tue/Thur/ Sat/Sun pseudoephed No 60MG Take 2 Take 2 rine 08-2824 tablets tablets (SUDAFED) 00:00: 00:00 (60 mg (60 mg 30 MG 00 :00 total) by total) by tablet mouth mouth nightly. nightly. oxyCODONE 2015- No 10MG Q8H Take 1 Take 1 (ROXICODONE 08-28 tablet (10 tab let ) 10 mg 00:00: 00:00 mg total) (10 mg immediate 00 :00 by mouth total) by release every mouth tablet eight (8) every hours as eight (8) needed for hours as pain. needed for pain. methadone No 5MG Take 1 Take 1 (DOLOPHINE) 08-28 tablet (5 tabl et (5 5 MG tablet 00:00: 00:00 mg total) mg total) 00 :00 by mouth by mouth Two (2) Two (2) times a times a day. day. folic acid No 1MG Folic Acid (FOLVITE) 08-27 1 Mg tablet 1 mg 09:00: Tablet 00 docusate No 100MG Docusate sodium 08-27 Sodium 100 (COLACE) 08:00: Mg Capsule capsule 100 00 mg methadone 2016-0 2016- No 5MG Methadone (DOLOPHINE) 08-27 05-22 10 Mg tablet 5 mg 06:00: 00:59 Tablet 00 :00 baclofen No 10MG Baclofen (LIORESAL) 08-26 10 Mg tablet 10 23:00: Tablet mg 00 hydroxyurea No 2000MG Hydroxyure (HYDREA) 08-26 a 500 Mg capsule 23:00: Capsule 2,000 mg 00 ibuprofen No 600MG Ibuprofen (ADVIL,MOTR 08-26 600 Mg IN) tablet 23:00: Tablet 600 mg 00 polyethylen No 17g Polyethyle e glycol 08-26 ne Glycol (MIRALAX) 23:00: 3350 17 packet 17 g 00 Gram Oral Powder Packet pregabalin No 75MG Pregabalin (LYRICA) 08-26 75 Mg capsule 75 23:00: Capsule mg 00 pseudoephed No 60MG Pseudoephe rine 08-26 drine 30 (SUDAFED) 23:00: Mg Tablet tablet 60 00 mg sodium 75mL/h Sodium chloride 08-26 05-31 Chloride (NS) 0.9 % 23:00: 22:58 0.9 % infusion 00 :00 Intravenou s Solution amitriptyli No 25MG QD Amitriptyl ne (ELAVIL) 08-26 ine 50 Mg tablet 25 22:35: Tablet mg 14 nalOXone No .4MG Naloxone (NARCAN) 08-26 0.4 Mg/Ml injection 22:35: Injection 0.4 mg 14 Solution senna No 2{tbl} QD Sennosides (SENOKOT) 08-26 8.6 Mg tablet 2 22:35: Tablet tablet 14 terbutaline No 5MG Q6H Terbutalin (BRETHINE) 08-26 e 2.5 Mg tablet 5 mg 22:35: Tablet 14 acetaminoph No 650MG Q6H Acetaminop en 08-26 hen 325 Mg (TYLENOL) 21:24: Tablet tablet 650 00 mg baclofen No 10MG Q.[id number] Baclofen (LIORESAL) 08-26 [id number] 10 Mg tablet 10 21:18: 3D Tablet mg 31 HYDROmorpho Hydromorph ne 08-26 05- one 50 (DILAUDID) 20:59: 22:56 Mg/50 Ml 50mg/50ml 00 :00 (1 Mg/Ml) (1mg/ml) In 0.9 % 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 10am. ibuprofen No Take 1 Take 1 (ADVIL,MOTR 4-29 tablet tablet IN) 600 MG 00:00: (600 mg (600 m g tablet 00 total) by total) by mouth mouth every 6 every 6 (6) hours (6) hours during during pain pain crisis. crisis. ibuprofen No Take 1 Take 1 (ADVIL,MOTR 4-29 tablet tablet IN) 600 MG 00:00: (600 mg (600 m g tablet 00 total) by total) by mouth mouth every 6 every 6 (6) hours (6) hours during during pain pain crisis. crisis. ibuprofen No Take 1 Take 1 (ADVIL,MOTR 4-29 tablet tablet IN) 600 MG 00:00: (600 mg (600 m g tablet 00 total) by total) by mouth mouth every 6 every 6 (6) hours (6) hours during during pain pain crisis. crisis. ibuprofen No Take 1 Take 1 (ADVIL,MOTR 4-29 tablet tablet IN) 600 MG 00:00: (600 mg (600 m g tablet 00 total) by total) by mouth mouth every 6 every 6 (6) hours (6) hours during during pain pain crisis. crisis. amitriptyli 2016- No 25MG QD Take 1 Take 1 ne (ELAVIL) 08-18 tablet (25 tab let 25 MG 00:00: 23:59 mg total) (25 mg tablet 00 :00 by mouth total) by nightly as mouth needed for nightly sleep. as needed for sleep. amitriptyli 2016- No 25MG QD Take 1 Take 1 ne (ELAVIL) 08-18 tablet (25 tab let 25 MG 00:00: 23:59 mg total) (25 mg tablet 00 :00 by mouth total) by nightly as mouth needed for nightly sleep. as needed for sleep. amitriptyli 2016- No 25MG QD Take 1 Take 1 ne (ELAVIL) 08-18 tablet (25 tab let 25 MG 00:00: 23:59 mg total) (25 mg tablet 00 :00 by mouth total) by nightly as mouth needed for nightly sleep. as needed for sleep. amitriptyli 2016- No 25MG QD Take 1 Take 1 ne (ELAVIL) 08-18 tablet (25 tab let 25 MG 00:00: 23:59 mg total) (25 mg tablet 00 :00 by mouth total) by nightly as mouth needed for nightly sleep. as needed for sleep. pseudoephed 2015- No 60MG Take 2 Take 2 rine 08-18 05-09 tablets tablets (SUDAFED) 00:00: 00:00 (60 mg (60 mg 30 MG 00 :00 total) by total) by tablet mouth mouth nightly. nightly. sulfamethox No Sulfametho azole-trime 08-15 xazole 800 thoprim 00:00: Mg-Trimeth (BACTRIM 00 oprim 160 DS) 800-160 Mg Tablet mg per tablet sulfamethox 2015- No Sulfametho azole-trime 08-1504 xazole 800 thoprim 00:00: 00:00 Mg-Trimeth (BACTRIM 00 :00 oprim 160 DS) 800-160 Mg Tablet mg per tablet oxyCODONE 2015- No 10MG Q8H Take 1 Take 1 (ROXICODONE 413 -09 tablet (10 tab let ) 10 mg 00:00: 00:00 mg total) (10 mg immediate 00 :00 by mouth total) by release every mouth tablet eight (8) every hours as eight (8) needed for hours as pain. needed for pain. methadone 2015- No 5MG Take 1 Take 1 (DOLOPHINE) 4-09 tablet (5 tabl et (5 5 MG tablet 00:00: 00:00 mg total) mg total) 00 :00 by mouth by mouth Two (2) Two (2) times a times a day. day. hydroxyurea 2015- No Take 1500 Allen e 1500 (HYDREA) 4-13 05-09 mg on mg on 500 mg 00:00: 00:00 Sat/Sat/ / capsule 00 :00 i and 2000 ri and mg on 2000 mg Tue/Thur/S on at/Sun Tue/Thur/ Sat/Sun hydroxyurea 2015- No Take 1500 Allen e 1500 (HYDREA) 3-16 04-13 mg on mg on 500 mg 00:00: 00:00 / / capsule 00 :00 i and 2000 ri and mg on 2000 mg Tue/Thur/S on at/Sun Tue/Thur/ Sat/Sun methadone 2015- No 5MG Take 1 Take 1 (DOLOPHINE) 3-16 -13 tablet (5 tabl et (5 5 MG tablet 00:00: 00:00 mg total) mg total) 00 :00 by mouth by mouth Two (2) Two (2) times a times a day. day. oxyCODONE 2015- No 10MG Q8H Take 1 Take 1 (ROXICODONE 3-16 -13 tablet (10 tab let ) 10 mg 00:00: 00:00 mg total) (10 mg immediate 00 :00 by mouth total) by release every mouth tablet eight (8) every hours as eight (8) needed for hours as pain. needed for pain. folic acid 2015- No 1MG Take 1 Take 1 (FOLVITE) 1 2-17 -09 tablet (1 tabl et (1 MG tablet 00:00: 00:00 mg total) mg to frank) 00 :00 by mouth by mouth daily. daily. pseudoephed 2015- No 60MG Take 2 Take 2 rine 2-17 04-29 tablets tablets (SUDAFED) 00:00: 00:00 (60 mg (60 mg 30 MG 00 :00 total) by total) by tablet mouth mouth nightly. nightly. methadone 2015-0 Yes 5mg Q12H Take 1 (DOLOPHINE) 1-15 tablet (5 5 MG tablet 00:00: mg total) 00 by mouth every 12 (twelve) hours. oxyCODONE 2015-0 Yes 10mg Q4H Take 10 mg (ROXICODONE 1-11 by mouth ) 5 MG 08:46: every 4 immediate 15 (four) release hours as tablet needed for Pain. pseudoephed 0 Yes 30mg Q4H Take 30 mg rine 1-11 by mouth (SUDAFED) 08:46: every 4 30 mg 15 (four) tablet hours as needed for Congestion . NEEDED for priapism pseudoephed Yes 30mg QD Take 30-60 rine 1-11 mg by (SUDAFED) 08:46: mouth 30 mg 15 nightly. tablet hydroxyurea 2014-04 Yes Take 1500 (HYDREA) 2-16 mg on 500 mg 00:00: Sat/Sat/ capsule 00 i and 2000 mg on Sat// at/Sun docusate 2014-04 No 100MG Take 1 Take 1 sodium 0-20 capsule capsule (COLACE) 00:00: (100 mg (100 mg 100 MG 00 total) by total) by capsule mouth Two mouth Tw o (2) times (2) times a day (at a day (at 8am and 8am and 3pm). 3pm). docusate 2014-04 No 100MG Take 1 Take 1 sodium 0-20 capsule capsule (COLACE) 00:00: (100 mg (100 mg 100 MG 00 total) by total) by capsule mouth Two mouth Tw o (2) times (2) times a day (at a day (at 8am and 8am and 3pm). 3pm). docusate 2014-04 No 100MG Take 1 Take 1 sodium 0-20 capsule capsule (COLACE) 00:00: (100 mg (100 mg 100 MG 00 total) by total) by capsule mouth Two mouth Tw o (2) times (2) times a day (at a day (at 8am and 8am and 3pm). 3pm). docusate 2014-04 No 100MG Take 1 Take 1 sodium 0-20 capsule capsule (COLACE) 00:00: (100 mg (100 mg 100 MG 00 total) by total) by capsule mouth Two mouth Tw o (2) times (2) times a day (at a day (at 8am and 8am and 3pm). 3pm). docusate 2014-04 Yes 100mg Q.5D Take 100 (COLACE) 0-20 mg by 100 MG 00:00: mouth 2 capsule 00 (two) times daily. folic acid 2014-04 Yes 1mg QD Take 1 mg (FOLVITE) 1 0-20 by mouth MG tablet 00:00: once 00 daily. oxyCODONE 2014-04 Yes 10mg Q12H Take 10 mg (ROXICODONE 0-20 by mouth ) 10 mg 00:00: every 12 tablet 00 (twelve) hours. senna 2014-04- No 2{tbl} QD Take 2 Take 2 (SENNA) 8.6 0-20 10-19 tablets by tab lets mg tablet 00:00: 23:59 mouth by mouth 00 :00 nightly as nightly needed for as needed constipati for on. constipat ion. pregabalin 2014-04- No 75MG Take 1 Take 1 (LYRICA) 75 0-20 10-19 capsule capsul e MG capsule 00:00: 23:59 (75 mg (75 mg 00 :00 total) by total) by mouth Two mouth Two (2) times (2) times a day. a day. pregabalin 2014-04- No 75MG Take 1 Take 1 (LYRICA) 75 0-20 10-19 capsule capsul e MG capsule 00:00: 23:59 (75 mg (75 mg 00 :00 total) by total) by mouth Two mouth Two (2) times (2) times a day. a day. senna 2014-04 2016- No 2{tbl} QD Take 2 Take 2 (SENNA) 8.6 0-20 10-19 tablets by tab lets mg tablet 00:00: 23:59 mouth by mouth 00 :00 nightly as nightly needed for as needed constipati for on. constipat ion. pregabalin 2014-04- No 75MG Take 1 Take 1 (LYRICA) 75 0-20 10-19 capsule capsul e MG capsule 00:00: 23:59 (75 mg (75 mg 00 :00 total) by total) by mouth Two mouth Two (2) times (2) times a day. a day. senna 2014-04- No 2{tbl} QD Take 2 Take 2 (SENNA) 8.6 0-20 10-19 tablets by tab lets mg tablet 00:00: 23:59 mouth by mouth 00 :00 nightly as nightly needed for as needed constipati for on. constipat ion. pregabalin 2014-04- No 75MG Take 1 Take 1 (LYRICA) 75 0-20 10-19 capsule capsul e MG capsule 00:00: 23:59 (75 mg (75 mg 00 :00 total) by total) by mouth Two mouth Two (2) times (2) times a day. a day. senna 2014-04- No 2{tbl} QD Take 2 Take 2 (SENNA) 8.6 0-20 10-19 tablets by tab lets mg tablet 00:00: 23:59 mouth by mouth 00 :00 nightly as nightly needed for as needed constipati for on. constipat ion. oxyCODONE 2014-04- No 10MG Q6H Take 1 Take 1 (ROXICODONE 0-20 05-09 tablet (10 tab let ) 10 mg 00:00: 00:00 mg total) (10 mg immediate 00 :00 by mouth total) by release every six mouth tablet (6) hours every six as needed. (6) hours as needed. baclofen No 10MG Q.[id number] Take 1 Take 1 (LIORESAL) 9-21 [id number] tablet (10 tablet 10 MG 00:00: 3D mg total) (10 mg tablet 00 by mouth total) by Three (3) mouth times a Three (3) day as times a needed day as (for needed priapism). (for priapism) . terbutaline No 5MG Q6H Take 1 Take 1 (BRETHINE) 9-21 tablet (5 table t (5 5 mg tablet 00:00: mg total) mg total) 00 by mouth by mouth every six every six (6) hours (6) hours as needed. as needed. polyethylen 2015-0 No 17g Take 17 g Allen e 17 g e glycol 9-21 by mouth by mouth (MIRALAX) 00:00: Two (2) Two (2) 17 gram 00 times a times a packet day. day. terbutaline 2014-0 No Priapism 5MG Q6H Take 1 Allen e 1 (BRETHINE) 9-21 tablet (5 table t (5 5 mg tablet 00:00: mg total) mg total) 00 by mouth by mouth every six every six (6) hours (6) hours as needed. as needed. polyethylen 2014-0 No 17g Take 17 g Allen e 17 g e glycol 9-21 by mouth by mouth (MIRALAX) 00:00: Two (2) Two (2) 17 gram 00 times a times a packet day. day. terbutaline 2014-0 No 5MG Q6H Take 1 Take 1 (BRETHINE) 9-21 tablet (5 table t (5 5 mg tablet 00:00: mg total) mg total) 00 by mouth by mouth every six every six (6) hours (6) hours as needed. as needed. polyethylen 2014-0 No 17g Take 17 g Allen e 17 g e glycol 9-21 by mouth by mouth (MIRALAX) 00:00: Two (2) Two (2) 17 gram 00 times a times a packet day. day. terbutaline 2014-0 No 5MG Q6H Take 1 Take 1 (BRETHINE) 9-21 tablet (5 table t (5 5 mg tablet 00:00: mg total) mg total) 00 by mouth by mouth every six every six (6) hours (6) hours as needed. as needed. terbutaline 2014-0 No 5MG Q6H Take 1 Take 1 (BRETHINE) 9-21 tablet (5 table t (5 5 mg tablet 00:00: mg total) mg total) 00 by mouth by mouth every six every six (6) hours (6) hours as needed. as needed. polyethylen 2015-0 No 17g Take 17 g Allen e 17 g e glycol 9-21 by mouth by mouth (MIRALAX) 00:00: Two (2) Two (2) 17 gram 00 times a times a packet day. day. baclofen Yes 10mg Q6H Take 10 mg (LIORESAL) 9-21 by mouth 10 MG 00:00: every 6 tablet 00 (six) hours as needed. FOR PRIAPISM polyethylen Yes 17g Q.5D Take 17 g e glycol 9-21 by mouth 2 (MIRALAX) 00:00: (two) packet 00 times daily as needed. terbutaline Yes 5mg Q4H Take 5 mg (BRETHINE) 9-21 by mouth 5 mg tablet 00:00: every 4 00 (four) hours as needed (for priapism). polyethylen 2018- No 17g Take 17 g Allen e 17 g e glycol 9-21 10-19 by mouth by mouth (MIRALAX) 00:00: 00:00 Two (2) Two (2) 17 gram 00 :00 times a times a packet day. day. baclofen 2015- No 10MG Q.20332436 Take 1 Take 1 (LIORESAL) 01-10 05-24 [id number] tablet (10 tablet 10 MG 00:00: 00:00 3D mg total) (10 mg tablet 00 :00 by mouth total) by Three (3) mouth times a Three (3) day as times a needed day as (for needed priapism). (for priapism) . amitriptyli 2015- No 25MG QD Take 1 Take 1 ne (ELAVIL) 01-10 tablet (25 tab let 25 MG 00:00: 00:00 mg total) (25 mg tablet 00 :00 by mouth total) by nightly as mouth needed for nightly sleep. as needed for sleep. ibuprofen Yes Take 1 (ADVIL,MOTR 3-08 tablet IN) 600 MG 00:00: (600 mg tablet 00 total) by mouth every 6 (6) hours during pain crisis. ibuprofen 2015- No Take 1 Take 1 (ADVIL,MOTR 3-08 -29 tablet tablet IN) 600 MG 00:00: 00:00 (600 mg (600 m g tablet 00 :00 total) by total) by mouth mouth every 6 every 6 (6) hours (6) hours during during pain pain crisis. crisis. terbutaline 5mg Take 1 Take 1 (BRETHINE) 04-29 tablet (5 table t (5 5 mg tablet 00:00: 00:00 mg total) mg total) 00 :00 by mouth by mouth every six every six (6) hours (6) hours as needed as needed (priapism) (priapism . ). 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, right hip, right 00 Chronic Chronic Condition Active 2016-09-26 pain pain 1-13 21:47:38 00:00: 00 Pruritus Pruritus Condition Active 2013-042014-08-1305-21 02:52:16 00:00: 00 Tobacco use Tobacco use Problem Inactiv 2014-07-10 disorder disorder e 12-10 00:37:47 00:00: 00 Tobacco use Tobacco use Condition Active 2016-09-26 disorder disorder 8 21:47:32 00:00: 00 Sickle cell Sickle cell Condition Active 2016-09-26 crisis crisis 12-06 21:47:35 00:00: 00 Priapism Priapism Problem Inactiv 2015-08-27 e 12-28 20:41:58 00:00: 00 History of History of Condition Active 2016-09-26 priapism priapism 12-28 21:47:39 00:00: 00 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 09-26 02:47:18 with crisis with crisis 00:00: 00 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 06-02 01:49:39 head and head and 00:00: neck of neck of 00 femur femur Sickling Sickling Diagnosis active disorder 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 CAP CAP [id number] Resolve 2015-05-06 (community (community d - 00:00:00 acquired acquired 00:00: pneumonia), pneumonia), 00 unspecified unspecified , , unspecified unspecified Atypical Atypical [id number] Resolve 2015-05-06 chest pain chest pain d 05-02 00:00:00 00:00: 00 Acute chest Acute chest Condition Resolve 2015-02-08 syndrome syndrome d 05-24 00:00:00 00:00: 00 Procedures Procedure Date / Time Performed Performing Clinician [facility] allegra [id number] 2018-07-22 03:28:25 Joe Bruner URINALYSIS W/REFLEX TO 2018-07-21 23:01:00 Phu Barbour MICROSCOPIC BASIC METABOLIC PANEL (BMP) 2018-07-21 22:56:00 Phu Barbour atthew RETICULOCYTES 2018-07-21 22:56:00 Phu Barbour COMPLETE BLOOD COUNT (CBC) 2018-07-21 22:56:00 Phu Barbour Ma tthew WITH DIFFERENTIAL TROPONIN I 2018-07-21 22:56:00 Joe Bruner CBC W/ AUTO DIFF 2018-04-23 15:13:00 Ev Bowen XR CHEST PA AND LATERAL 2018-04-21 22:20:06 Rei Benitez ECG 12-LEAD 2018-04-21 22:01:47 Rei Benitez XR CHEST PA AND LATERAL 2017-11-27 18:35:50 Ev Bowen XR INTERPRETATION OF OUTSIDE 2017-10-19 02:40:05 Efrain Aguiar XR CHEST PA AND LATERAL 2017-08-30 13:03:[address] CHEST WO CONTRAST 2017-06-05 12:30:00 Adarsh Patel XR CHEST PA AND LATERAL 2017-06-05 08:54:37 Adarsh Patel XR CHEST PA AND LATERAL 2017-04-07 09:24:50 Naif Montano Port Placement appendectomy Results Test Description Test Time Test Comments Text Results Atomic Results Result Comments WBC 2020-01-19 14:45:00 Test Item Value Reference Range Comments WBC (test code = WBC) 5.1000 4.0000-10.0000 Lymphocytes % (test code = Lymphocytes %) 37.7000 % 22.400 0-43.6000 MID% (test code = MID%) 7.9000 % 1.2000-11.2000 Neutrophils % (test code = Neutrophils %) 54.4000 % 48.900 0-69.9000 Lymphocytes (test code = Lymphocytes) 1.9000 1.2000-3.2 000 MID (test code = MID) 0.5000 0.1000-1.1000 Neutrophils (test code = Neutrophils) 2.7000 1.5000-6.7 000 RBC (test code = RBC) 2.9900 3.7000-4.9000 HGB (test code = HGB) 9.8000 g/dL 11.2000-18.0000 HCT (test code = HCT) 27.9000 % 34.0000-44.0000 MCV (test code = MCV) 93.4000 fL 80.0000-94.0000 MCH (test code = MCH) 32.8000 pg 27.0000-34.0000 MCHC (test code = MCHC) 35.0000 g/dL 31.5000-36.0000 RDW (test code = RDW) 23.3000 11.0000-18.0000 PLT (test code = PLT) 478.0000 140.0000-440.0000 MPV (test code = MPV) 7.6000 fL 6.8000-10.6000 [id number] 14:45:00 Test Item Value Reference Range Comments Creatinine (test code = Creatinine) 0.7000 mg/dL 0.5000-1.200 0 Cr Clearance (Est) (test code = Cr 176.9400 85.0000-125.0 000 Clearance (Est)) Glucose (test code = Glucose) 134.0000 mg/dL 70.0000-118.0000 BUN (test code = BUN) 6.0000 mg/dL 7.0000-22.0000 Sodium (test code = Sodium) 140.0000 mmol/L 128.0000-145.0000 Potassium (test code = Potassium) 3.8000 mmol/L 3.6000-5.1000 Chloride (test code = Chloride) 105.0000 mmol/L 96.0000-108.0000 CO2 (test code = CO2) 28.0000 mmol/L 18.0000-33.0000 Calcium (test code = Calcium) 8.2000 mg/dL 8.0000-10.3000 Alkaline Phosphatase (test code = Alkaline 71.0000 42.00 00-141.0000 Phosphatase) ALT (SGPT) (test code = ALT (SGPT)) 19.0000 10.0000-47.0 000 AST (SGOT) (test code = AST (SGOT)) 32.0000 11.0000-37.0 000 Bilirubin, Total (test code = Bilirubin, 2.9000 mg/dL 0.0000- 1.6000 Total) Albumin (test code = Albumin) 4.3000 g/dL 3.5000-5.5000 Protein, Total (test code = Protein, 7.4000 g/dL 6.4000-8.10 00 Total) eGFR -Macedonian (test code = eGFR 151.0000 60.0000- 200.0000 -Macedonian) eGFR Xln-Bbwzwuz-Gtaimdvy (test code = 125.0000 60.0000-2 00.0000 eGFR Raa-Gwdricf-Pfglnfuk) [id number] 11:24:00 Test Item Value Reference Range Comments Creatinine (test code = Creatinine) 0.7800 mg/dL 0.7600-1.270 0 Cr Clearance (Est) (test code = Cr 154.0200 85.0000-125.0 000 Clearance (Est)) Glucose (test code = Glucose) 89.0000 mg/dL 65.0000-99.0000 BUN (test code = BUN) 8.0000 mg/dL 6.0000-20.0000 eGFR Jnr-Ykzhyzw-Fqqylnrw (test code = 114.0000 eGFR Pkm-Fzecvmo-Tlkgywad) eGFR -Macedonian (test code = eGFR 131.0000 -Macedonian) BUN/Creat Ratio (test code = BUN/Creat 10.0000 9.0000-20 .0000 Ratio) Sodium (test code = Sodium) 140.0000 mmol/L 134.0000-144.0000 Potassium (test code = Potassium) 4.1000 mmol/L 3.5000-5.2000 Chloride (test code = Chloride) 104.0000 mmol/L 96.0000-106.0000 CO2 (test code = CO2) 20.0000 mmol/L 20.0000-29.0000 Calcium (test code = Calcium) 9.4000 mg/dL 8.7000-10.2000 Protein, Total (test code = Protein, 7.7000 g/dL 6.0000-8.50 00 Total) Albumin (test code = Albumin) 4.2000 g/dL 4.0000-5.0000 Globulin (test code = Globulin) 3.5000 g/dL 1.5000-4.5000 A/G Ratio (test code = A/G Ratio) 1.2000 1.2000-2.2000 Bilirubin, Total (test code = Bilirubin, 1.7000 mg/dL 0.0000- 1.2000 Total) Alkaline Phosphatase (test code = Alkaline 99.0000 39.00 00-117.0000 Phosphatase) AST (SGOT) (test code = AST (SGOT)) 25.0000 0.0000-40.00 00 ALT (SGPT) (test code = ALT (SGPT)) 30.0000 0.0000-44.00 00 [id number] 08:26:00 Test Item Value Reference Range Comments WBC (test code = WBC) 5.4000 4.0000-10.0000 Lymphocytes % (test code = Lymphocytes %) 30.5000 % 22.400 0-43.6000 MID% (test code = MID%) 6.1000 % 1.2000-11.2000 Neutrophils % (test code = Neutrophils %) 63.4000 % 48.900 0-69.9000 Lymphocytes (test code = Lymphocytes) 1.6000 1.2000-3.2 000 MID (test code = MID) 0.4000 0.1000-1.1000 Neutrophils (test code = Neutrophils) 3.4000 1.5000-6.7 000 RBC (test code = RBC) 3.4200 3.7000-4.9000 HGB (test code = HGB) 10.2000 g/dL 11.2000-18.0000 HCT (test code = HCT) 32.6000 % 34.0000-44.0000 MCV (test code = MCV) 95.3000 fL 80.0000-94.0000 MCH (test code = MCH) 29.9000 pg 27.0000-34.0000 MCHC (test code = MCHC) 31.4000 g/dL 31.5000-36.0000 RDW (test code = RDW) 21.5000 11.0000-18.0000 PLT (test code = PLT) 600.0000 140.0000-440.0000 MPV (test code = MPV) 7.1000 fL 6.8000-10.6000 [id number] 14:08:00 Test Item Value Reference Range Comments WBC (test code = WBC) 4.9000 4.0000-10.0000 Lymphocytes % (test code = Lymphocytes %) 42.2000 % 22.400 0-43.6000 MID% (test code = MID%) 8.4000 % 1.2000-11.2000 Neutrophils % (test code = Neutrophils %) 49.4000 % 48.900 0-69.9000 Lymphocytes (test code = Lymphocytes) 2.1000 1.2000-3.2 000 MID (test code = MID) 0.4000 0.1000-1.1000 Neutrophils (test code = Neutrophils) 2.4000 1.5000-6.7 000 RBC (test code = RBC) 3.4100 3.7000-4.9000 HGB (test code = HGB) 10.5000 g/dL 11.2000-18.0000 HCT (test code = HCT) 31.7000 % 34.0000-44.0000 MCV (test code = MCV) 92.9000 fL 80.0000-94.0000 MCH (test code = MCH) 30.9000 pg 27.0000-34.0000 MCHC (test code = MCHC) 33.3000 g/dL 31.5000-36.0000 RDW (test code = RDW) 21.0000 11.0000-18.0000 PLT (test code = PLT) 505.0000 140.0000-440.0000 MPV (test code = MPV) 6.4000 fL 6.8000-10.6000 [id number] 14:08:00 Test Item Value Reference Range Comments Creatinine (test code = Creatinine) 0.7000 mg/dL 0.5000-1.200 0 Cr Clearance (Est) (test code = Cr 164.5300 85.0000-125.0 000 Clearance (Est)) Glucose (test code = Glucose) 100.0000 mg/dL 70.0000-118.0000 BUN (test code = BUN) 4.0000 mg/dL 7.0000-22.0000 Sodium (test code = Sodium) 138.0000 mmol/L 128.0000-145.0000 Potassium (test code = Potassium) 3.1000 mmol/L 3.6000-5.1000 Chloride (test code = Chloride) 106.0000 mmol/L 96.0000-108.0000 CO2 (test code = CO2) 27.0000 mmol/L 18.0000-33.0000 Calcium (test code = Calcium) 8.1400 mg/dL 8.0000-10.3000 Alkaline Phosphatase (test code = Alkaline 127.0000 42.00 00-141.0000 Phosphatase) ALT (SGPT) (test code = ALT (SGPT)) 11.0000 10.0000-47.0 000 AST (SGOT) (test code = AST (SGOT)) 18.0000 11.0000-37.0 000 Bilirubin, Total (test code = Bilirubin, 2.2000 mg/dL 0.0000- 1.6000 Total) Albumin (test code = Albumin) 4.1000 g/dL 3.5000-5.5000 Protein, Total (test code = Protein, 7.9000 g/dL 6.4000-8.10 00 Total) eGFR -Macedonian (test code = eGFR 152.0000 60.0000- 200.0000 -Macedonian) eGFR Kap-Gmxmloj-Vqapavtx (test code = 126.0000 60.0000-2 00.0000 eGFR Gan-Pagyyoy-Rfzvyych) [id number] 11:13:00 Test Item Value Reference Range Comments WBC (test code = WBC) 5.8000 4.0000-10.0000 Lymphocytes % (test code = Lymphocytes %) 30.3000 % 22.400 0-43.6000 MID% (test code = MID%) 8.2000 % 1.2000-11.2000 Neutrophils % (test code = Neutrophils %) 61.5000 % 48.900 0-69.9000 Lymphocytes (test code = Lymphocytes) 1.7000 1.2000-3.2 000 MID (test code = MID) 0.6000 0.1000-1.1000 Neutrophils (test code = Neutrophils) 3.5000 1.5000-6.7 000 RBC (test code = RBC) 3.2800 3.7000-4.9000 HGB (test code = HGB) 10.1000 g/dL 11.2000-18.0000 HCT (test code = HCT) 32.1000 % 34.0000-44.0000 MCV (test code = MCV) 97.9000 fL 80.0000-94.0000 MCH (test code = MCH) 30.7000 pg 27.0000-34.0000 MCHC (test code = MCHC) 31.3000 g/dL 31.5000-36.0000 RDW (test code = RDW) 23.0000 11.0000-18.0000 PLT (test code = PLT) 284.0000 140.0000-440.0000 MPV (test code = MPV) 7.1000 fL 6.8000-10.6000 [id number] 14:10:00 Test Item Value Reference Range Comments WBC (test code = WBC) 5.5000 4.0000-10.0000 Lymphocytes % (test code = Lymphocytes %) 34.6000 % 22.400 0-43.6000 MID% (test code = MID%) 6.1000 % 1.2000-11.2000 Neutrophils % (test code = Neutrophils %) 59.3000 % 48.900 0-69.9000 Lymphocytes (test code = Lymphocytes) 1.9000 1.2000-3.2 000 MID (test code = MID) 0.4000 0.1000-1.1000 Neutrophils (test code = Neutrophils) 3.2000 1.5000-6.7 000 RBC (test code = RBC) 2.9400 3.7000-4.9000 HGB (test code = HGB) 10.3000 g/dL 11.2000-18.0000 HCT (test code = HCT) 29.2000 % 34.0000-44.0000 MCV (test code = MCV) 99.1000 fL 80.0000-94.0000 MCH (test code = MCH) 35.0000 pg 27.0000-34.0000 MCHC (test code = MCHC) 35.3000 g/dL 31.5000-36.0000 RDW (test code = RDW) 21.2000 11.0000-18.0000 PLT (test code = PLT) 251.0000 140.0000-440.0000 MPV (test code = MPV) 6.8000 fL 6.8000-10.6000 [id number] 14:10:00 Test Item Value Reference Range Comments Creatinine (test code = Creatinine) 0.7000 mg/dL 0.5000-1.200 0 Cr Clearance (Est) (test code = Cr 173.5000 85.0000-125.0 000 Clearance (Est)) Glucose (test code = Glucose) 88.0000 mg/dL 70.0000-118.0000 BUN (test code = BUN) 9.0000 mg/dL 7.0000-22.0000 Sodium (test code = Sodium) 142.0000 mmol/L 128.0000-145.0000 Potassium (test code = Potassium) 3.9000 mmol/L 3.6000-5.1000 Chloride (test code = Chloride) 100.0000 mmol/L 96.0000-108.0000 CO2 (test code = CO2) 30.0000 mmol/L 18.0000-33.0000 Calcium (test code = Calcium) 8.4300 mg/dL 8.0000-10.3000 Alkaline Phosphatase (test code = Alkaline 63.0000 42.00 00-141.0000 Phosphatase) ALT (SGPT) (test code = ALT (SGPT)) 24.0000 10.0000-47.0 000 AST (SGOT) (test code = AST (SGOT)) 34.0000 11.0000-37.0 000 Bilirubin, Total (test code = Bilirubin, 3.0000 mg/dL 0.0000- 1.6000 Total) Albumin (test code = Albumin) 4.5000 g/dL 3.5000-5.5000 Protein, Total (test code = Protein, 7.8000 g/dL 6.4000-8.10 00 Total) eGFR -Macedonian (test code = eGFR 153.0000 60.0000- 200.0000 -Macedonian) eGFR Wav-Vpcztod-Wuppmjhq (test code = 126.0000 60.0000-2 00.0000 eGFR Fob-Waejqsh-Cdxtlvbc) [id number] 11:25:00 Test Item Value Reference Range Comments WBC (test code = WBC) 4.7000 4.0000-10.0000 Lymphocytes % (test code = Lymphocytes %) 40.0000 % 22.400 0-43.6000 MID% (test code = MID%) 10.3000 % 1.2000-11.2000 Neutrophils % (test code = Neutrophils %) 49.7000 % 48.900 0-69.9000 Lymphocytes (test code = Lymphocytes) 1.9000 1.2000-3.2 000 MID (test code = MID) 0.5000 0.1000-1.1000 Neutrophils (test code = Neutrophils) 2.3000 1.5000-6.7 000 RBC (test code = RBC) 2.7000 3.7000-4.9000 HGB (test code = HGB) 9.1000 g/dL 11.2000-18.0000 HCT (test code = HCT) 27.1000 % 34.0000-44.0000 MCV (test code = MCV) 100.2000 fL 80.0000-94.0000 MCH (test code = MCH) 33.7000 pg 27.0000-34.0000 MCHC (test code = MCHC) 33.6000 g/dL 31.5000-36.0000 RDW (test code = RDW) 24.2000 11.0000-18.0000 PLT (test code = PLT) 300.0000 140.0000-440.0000 MPV (test code = MPV) 7.5000 fL 6.8000-10.6000 [id number] 11:25:00 Test Item Value Reference Range Comments Creatinine (test code = Creatinine) 0.5000 mg/dL 0.5000-1.200 0 Cr Clearance (Est) (test code = Cr 235.4500 85.0000-125.0 000 Clearance (Est)) Glucose (test code = Glucose) 93.0000 mg/dL 70.0000-118.0000 BUN (test code = BUN) 5.0000 mg/dL 7.0000-22.0000 Sodium (test code = Sodium) 137.0000 mmol/L 128.0000-145.0000 Potassium (test code = Potassium) 4.2000 mmol/L 3.6000-5.1000 Chloride (test code = Chloride) 109.0000 mmol/L 96.0000-108.0000 CO2 (test code = CO2) 23.0000 mmol/L 18.0000-33.0000 Calcium (test code = Calcium) 8.7000 mg/dL 8.0000-10.3000 Alkaline Phosphatase (test code = Alkaline 68.0000 42.00 00-141.0000 Phosphatase) ALT (SGPT) (test code = ALT (SGPT)) 28.0000 10.0000-47.0 000 AST (SGOT) (test code = AST (SGOT)) 51.0000 11.0000-37.0 000 Bilirubin, Total (test code = Bilirubin, 1.6000 mg/dL 0.0000- 1.6000 Total) Albumin (test code = Albumin) 3.9000 g/dL 3.5000-5.5000 Protein, Total (test code = Protein, 7.7000 g/dL 6.4000-8.10 00 Total) eGFR -Macedonian (test code = eGFR 225.0000 60.0000- 200.0000 -Macedonian) eGFR Mmx-Waghxqt-Kbkulcbh (test code = 186.0000 60.0000-2 00.0000 eGFR Idj-Rnovxeh-Sajavfqs) [id number] 10:16:00 Test Item Value Reference Range Comments WBC (test code = WBC) 5.8000 4.0000-10.0000 Lymphocytes % (test code = Lymphocytes %) 30.5000 % 22.400 0-43.6000 MID% (test code = MID%) 7.5000 % 1.2000-11.2000 Neutrophils % (test code = Neutrophils %) 62.0000 % 48.900 0-69.9000 Lymphocytes (test code = Lymphocytes) 1.7000 1.2000-3.2 000 MID (test code = MID) 0.5000 0.1000-1.1000 Neutrophils (test code = Neutrophils) 3.6000 1.5000-6.7 000 RBC (test code = RBC) 2.8100 3.7000-4.9000 HGB (test code = HGB) 9.3000 g/dL 11.2000-18.0000 HCT (test code = HCT) 27.8000 % 34.0000-44.0000 MCV (test code = MCV) 98.8000 fL 80.0000-94.0000 MCH (test code = MCH) 33.2000 pg 27.0000-34.0000 MCHC (test code = MCHC) 33.5000 g/dL 31.5000-36.0000 RDW (test code = RDW) 22.0000 11.0000-18.0000 PLT (test code = PLT) 440.0000 140.0000-440.0000 MPV (test code = MPV) 7.6000 fL 6.8000-10.6000 Axauwsjqkz8859-28-13 10:16:00 Test Item Value Reference Range Comments Creatinine (test code = Creatinine) 0.7000 mg/dL 0.5000-1.200 0 Cr Clearance (Est) (test code = Cr 165.2400 85.0000-125.0 000 Clearance (Est)) Glucose (test code = Glucose) 114.0000 mg/dL 70.0000-118.0000 BUN (test code = BUN) 8.0000 mg/dL 7.0000-22.0000 Sodium (test code = Sodium) 141.0000 mmol/L 128.0000-145.0000 Potassium (test code = Potassium) 3.7000 mmol/L 3.6000-5.1000 Chloride (test code = Chloride) 102.0000 mmol/L 96.0000-108.0000 CO2 (test code = CO2) 25.0000 mmol/L 18.0000-33.0000 Calcium (test code = Calcium) 9.1000 mg/dL 8.0000-10.3000 Alkaline Phosphatase (test code = Alkaline 56.0000 42.00 00-141.0000 Phosphatase) ALT (SGPT) (test code = ALT (SGPT)) 26.0000 10.0000-47.0 000 AST (SGOT) (test code = AST (SGOT)) 32.0000 11.0000-37.0 000 Bilirubin, Total (test code = Bilirubin, 3.1000 mg/dL 0.0000- 1.6000 Total) Albumin (test code = Albumin) 4.3000 g/dL 3.5000-5.5000 Protein, Total (test code = Protein, 7.4000 g/dL 6.4000-8.10 00 Total) eGFR -Macedonian (test code = eGFR 153.0000 60.0000- 200.0000 -Macedonian) eGFR Sit-Bydrnjm-Dymeerdg (test code = 126.0000 60.0000-2 00.0000 eGFR Shs-Icvoqhb-Yohydaau) Troponin I ([facility] [place]2018-07-22 02:58:00 Test Item Value Reference Range Comments Troponin I (test code = 07242-2) <0.01 <0.50 ng/mL MARGO (test code = MARGO) Lab Interpretation (test code = 92736-5) Normal Basic Metabolic Panel (BMP)2018-07-21 23:28:00 Test Item Value Reference Range Comments Sodium (test code = 2951-2) 137 mmol/L 135-145 Potassium (test code = 2823-3) 4.1 mmol/L 3.5-5 Chloride (test code = 2075-0) 105 mmol/L 98-108 Carbon Dioxide (CO2) (test 23 mmol/L 21-30 code = 2028-9) Urea Nitrogen (BUN) (test code 11 mg/dL 7-20 = 3094-0) Creatinine (test code = 0.5 mg/dL 0.6-1.3 2160-0) Glucose (test code = 2345-7) 84 mg/dL 70-140 Int erpretive Data: Please note that the ab ove listed reference range fo r NONFASTING GLUCOSE levels o nly. FASTING GLUCOSE referenc e ranges are shown below: FASTING GLUCOSE REFERENCE RANGE NORMAL: 70 - 99mg/dL PREDIABETES: 100 - 125 mg/dL DIABETES: > 125 m g/dL Calcium (test code = 61095-8) 8.7 mg/dL 8.7-10.2 Anion Gap (test code = 9 mmol/L 12 41625-1) BUN/CREA Ratio (test code = 22 20-30 3097-3) BUN/CREA Ratio (test code = 22 <30 74221804) Glomerular Filtration Rate >60 mL/min/1.73sq m Inter pretive Ranges for (eGFR), MDRD Estimate (test Mindy ents with Chronic Kidney code = 91931-9) Disease: eGFR: > 60 mL/min - Norm al eGFR: 30 - 59 mL/min - Moderat laura Decreased eGFR: 15 - 29 mL/min - Severel y Decreased eGFR: < 15 mL/min -Kidney Fail ure Note: These GFR calcul ations do not apply in acu te situations when GFR is changing rapidly or in patients on dial ysis. Lab Interpretation (test code Abnormal = 56396-7) Complete Blood Count (CBC) with Baesdgyelzvf9581-19-49 23:24:00 Test Item Value Reference Range Comments WBC (White Blood Cell Count) 6.2 4.8- 10.8 x 10 9 (test code = 52220-0) /L Hemoglobin (test code = 9.0 g/dL 13.7-17.3 718-7) Hematocrit (test code = 26.2 % 39-49 4544-3) Platelets (test code = 338 150- 450 x10 9 78520-6) /L MCV (Mean Corpuscular Volume) 95 fL 80-98 (test code = 787-2) MCH (Mean Corpuscular 32.6 pg 26.5-34 Hemoglobin) (test code = 785-6) MCHC (Mean Corpuscular 34.4 % 31.5-36.3 Hemoglobin Concentration) (test code = 786-4) RBC (Red Blood Cell Count) 2.76 4.37- 5.74 x1 0 1 (test code = 89911-9) 2/L RDW-CV (Red Cell Distribution 21.6 % 11.5-14.5 Width) (test code = 93112-3) NRBC (Nucleated Red Blood 0.20 0 x10 9 Cell Count) (test code = /L 43784-9) NRBC % (Nucleated Red Blood 3.2 % Cell %) (test code = 98076-6) MPV (Mean Platelet Volume) 9.4 fL 7.2-11.7 (test code = 54748901) Neutrophil Count (test code = 3.4 2.0- 8.6 x 10 9 79032-3) /L Neutrophil % (test code = 55.9 % 37-80 86945-0) Lymphocyte Count (test code = 1.8 0.6- 4.2 x 10 9 93684-9) /L Lymphocyte % (test code = 28.6 % 10-50 76339-0) Monocyte Count (test code = 0.8 0- 0.9 x10 9 20001-9) /L Monocyte % (test code = 13.3 % 0-12 85331-7) Eosinophil Count (test code = 0.07 0- 0.70 x1 0 9 711-2) /L Eosinophil % (test code = 1.1 % 0-7 68444-6) Basophil Count (test code = 0.04 0- 0.20 x10 9 704-7) /L Basophil % (test code = 0.6 % 0-2 706-2) Slide Review/Morphology (test Yes Bl ood film reviewed, code = 93838654) instrument coun ts confirmed,Hypoch romia,Macr ocytes,Large platelets,Ovaloc ytes,Sickl e cells,Target c ells,No significant WBC morphology observed.,Anisoc ytosis, Immature Granulocyte Count 0.03 <=0.06 x10 9 (test code = 76680-9) /L Immature Granulocyte % (test 0.5 % <=0.7 code = 03849-3) Lab Interpretation (test code Abnormal = 72422-6) Yfogqscpmcizk7956-56-96 23:24:00 Test Item Value Reference Range Comments Reticulocyte % (test code = 4679-7) 12.24 % 0.7-2 Reticulocyte Count /L (test code = 82841-9) 337.8 28.0 - 134.0 x10^9/L Immature Reticulocyte Fraction (test code = 33.4 % 3.1- 16 70839-5) Lab Interpretation (test code = 11640-8) Abnormal Urinalysis w/reflex to Pgyejyxlhym9461-60-60 23:16:00 Test Item Value Reference Range Comments Color (test code = 5778-6) Yellow Colorless, Straw, Lig ht Yellow, Yellow, Dark Yellow Clarity (test code = 99850-2) Clear Clear Specific Russell (test code = 1.014 1.005-1.030 2965-2) pH, Urine (test code = 2756-5) 6.0 5.0-8.0 Protein, Urinalysis (test code = Negative Negative 2887-8) Glucose, Urinalysis (test code = Negative Negative 2349-9) Ketones, Urinalysis (test code = Negative Negative 00890-9) Blood, Urinalysis (test code = Negative Negative 67690-7) Nitrite, Urinalysis (test code = Negative Negative 60813-9) Leukocytes, Urinalysis (test code = Negative Negative 65699-2) Bilirubin, Urinalysis (test code = Negative Negative 1976-8) Urobilinogen, Urinalysis (test code 1.0 mg/dL 0.2-1 = 3107-0) Lab Interpretation (test code = Normal 61651-1) Reticulocyte Xszfw7835-68-82 14:40:00 Test Item Value Reference Range Comments Reticulocyte Count (test code = Reticulocyte 15.2000 % 0.6 000-2.6000 Count) [id number] 14:03:00 Test Item Value Reference Range Comments WBC (test code = WBC) 6.0000 4.0000-10.0000 Lymphocytes % (test code = Lymphocytes %) 42.4000 % 22.400 0-43.6000 MID% (test code = MID%) 11.8000 % 1.2000-11.2000 Neutrophils % (test code = Neutrophils %) 45.8000 % 48.900 0-69.9000 Lymphocytes (test code = Lymphocytes) 2.5000 1.2000-3.2 000 MID (test code = MID) 0.8000 0.1000-1.1000 Neutrophils (test code = Neutrophils) 2.7000 1.5000-6.7 000 RBC (test code = RBC) 2.6200 3.7000-4.9000 HGB (test code = HGB) 9.1000 g/dL 11.2000-18.0000 HCT (test code = HCT) 26.1000 % 34.0000-44.0000 MCV (test code = MCV) 99.9000 fL 80.0000-94.0000 MCH (test code = MCH) 34.7000 pg 27.0000-34.0000 MCHC (test code = MCHC) 34.7000 g/dL 31.5000-36.0000 RDW (test code = RDW) 23.8000 11.0000-18.0000 PLT (test code = PLT) 425.0000 140.0000-440.0000 MPV (test code = MPV) 6.9000 fL 6.8000-10.6000 Aquvuwemmw6006-12-38 13:04:00 Test Item Value Reference Range Comments Creatinine (test code = Creatinine) 0.6800 mg/dL 0.7600-1.270 0 Cr Clearance (Est) (test code = Cr 171.9900 85.0000-125.0 000 Clearance (Est)) Glucose (test code = Glucose) 97.0000 mg/dL 65.0000-99.0000 BUN (test code = BUN) 4.0000 mg/dL 6.0000-20.0000 eGFR Pkt-Buqtfan-Gjwampks (test code = 121.0000 eGFR Hlv-Eoqfkiz-Vrdupvis) eGFR -Macedonian (test code = eGFR 140.0000 -Macedonian) BUN/Creat Ratio (test code = BUN/Creat 6.0000 9.0000-20 .0000 Ratio) Sodium (test code = Sodium) 142.0000 mmol/L 134.0000-144.0000 Potassium (test code = Potassium) 3.6000 mmol/L 3.5000-5.2000 Chloride (test code = Chloride) 104.0000 mmol/L 96.0000-106.0000 CO2 (test code = CO2) 21.0000 mmol/L 20.0000-29.0000 Calcium (test code = Calcium) 8.8000 mg/dL 8.7000-10.2000 Protein, Total (test code = Protein, 7.4000 g/dL 6.0000-8.50 00 Total) Albumin (test code = Albumin) 4.1000 g/dL 3.5000-5.5000 Globulin (test code = Globulin) 3.3000 g/dL 1.5000-4.5000 A/G Ratio (test code = A/G Ratio) 1.2000 1.2000-2.2000 Bilirubin, Total (test code = Bilirubin, 2.2000 mg/dL 0.0000- 1.2000 Total) Alkaline Phosphatase (test code = 68.0000 39.0000-117.00 00 Alkaline Phosphatase) AST (SGOT) (test code = AST (SGOT)) 24.0000 0.0000-40.00 00 ALT (SGPT) (test code = ALT (SGPT)) 20.0000 0.0000-44.00 00 Iron, Total (test code = Iron, Total) 126.0000 38.0000-16 9.0000 TIBC (test code = TIBC) 290.0000 250.0000-450.0000 UIBC (test code = UIBC) 164.0000 111.0000-343.0000 % Iron Saturation (test code = % Iron 43.0000 % 15.0000-55 .0000 Saturation) Vitamin B12 (test code = Vitamin B12) 614.0000 pg/mL 232.0000-1 245.0000 Folate (test code = Folate) 16.7000 ng/mL Ferritin (test code = Ferritin) 377.0000 ng/mL 30.0000-400.0000 [id number] 16:36:00 Test Item Value Reference Range Comments WBC (test code = WBC) 7.0000 4.0000-10.0000 Lymphocytes % (test code = Lymphocytes %) 28.1000 % 22.400 0-43.6000 MID% (test code = MID%) 10.0000 % 1.2000-11.2000 Neutrophils % (test code = Neutrophils %) 61.9000 % 48.900 0-69.9000 Lymphocytes (test code = Lymphocytes) 1.9000 1.2000-3.2 000 MID (test code = MID) 0.8000 0.1000-1.1000 Neutrophils (test code = Neutrophils) 4.3000 1.5000-6.7 000 RBC (test code = RBC) 2.5000 3.7000-4.9000 HGB (test code = HGB) 8.8000 g/dL 11.2000-18.0000 HCT (test code = HCT) 25.2000 % 34.0000-44.0000 MCV (test code = MCV) 101.1000 fL 80.0000-94.0000 MCH (test code = MCH) 35.4000 pg 27.0000-34.0000 MCHC (test code = MCHC) 35.0000 g/dL 31.5000-36.0000 RDW (test code = RDW) 20.1000 11.0000-18.0000 PLT (test code = PLT) 246.0000 140.0000-440.0000 MPV (test code = MPV) 7.0000 fL 6.8000-10.6000 CBC w/ Kpbsqghfdxbt8844-18-30 15:13:00 Test Item Value Reference Range Comments WBC (test code = WBC) 3.6 10*9/L 4.5- 11.0 10*9/L RBC (test code = RBC) 2.72 10*12/L 4.50- 5.90 10*12/L HGB (test code = HGB) 9.4 g/dL 13.5- 17.5 g/dL HCT (test code = HCT) 28.9 % 41.0- 53.0 % MCV (test code = MCV) 106.5 fL 80.0- 100.0 fL MCH (test code = MCH) 34.8 pg 26.0- 34.0 pg MCHC (test code = MCHC) 32.7 g/dL 31.0- 37.0 g/dL RDW (test code = RDW) 18.4 % 12.0- 15.0 % MPV (test code = MPV) 7.3 fL 7.0- 10.0 fL Platelet (test code = Platelet) 190 10*9/L 150- 440 10*9/L Variable HGB Concentration (test code = Moderate Not Pres ent Variable HGB Concentration) Absolute Neutrophils (test code = Absolute 1.7 10*9/L 2.0- 7.5 10*9/L Neutrophils) Absolute Lymphocytes (test code = Absolute 1.2 10*9/L 1.5- 5.0 10*9/L Lymphocytes) Absolute Monocytes (test code = Absolute 0.4 10*9/L 0.2- 0. 8 10*9/L Monocytes) Absolute Eosinophils (test code = Absolute 0.1 10*9/L 0.0- 0.4 10*9/L Eosinophils) Absolute Basophils (test code = Absolute 0.0 10*9/L 0.0- 0. 1 10*9/L Basophils) Large Unstained Cells (test code = Large 8 % 0- 4 % Unstained Cells) Macrocytosis (test code = Macrocytosis) Marked Not Pres ent Anisocytosis (test code = Anisocytosis) Moderate Not Pres ent Hypochromasia (test code = Hypochromasia) Slight Not Pr esent [id number] 14:25:00 Test Item Value Reference Range Comments Reticulocyte Manual % (test code = 7.2 % 0.8- 2.5 % Reticulocyte Manual %) Absolute Manual Reticulocyte (test code = 203.8 10*9/L 27.0- 120.0 10*9/L Absolute Manual Reticulocyte) [id number] 15:27:00 Test Item Value Reference Range Comments Reticulocyte Manual % (test code = 4.7 % 0.8- 2.5 % Reticulocyte Manual %) Absolute Manual Reticulocyte (test code = 127.4 10*9/L 27.0- 120.0 10*9/L Absolute Manual Reticulocyte) CBC w/ [id number] 15:27:00 Test Item Value Reference Range Comments WBC (test code = WBC) 3.8 10*9/L 4.5- 11.0 10*9/L RBC (test code = RBC) 2.71 10*12/L 4.50- 5.90 10*12/L HGB (test code = HGB) 9.3 g/dL 13.5- 17.5 g/dL HCT (test code = HCT) 29.7 % 41.0- 53.0 % MCV (test code = MCV) 109.5 fL 80.0- 100.0 fL MCH (test code = MCH) 34.5 pg 26.0- 34.0 pg MCHC (test code = MCHC) 31.5 g/dL 31.0- 37.0 g/dL RDW (test code = RDW) 19.3 % 12.0- 15.0 % MPV (test code = MPV) 8.1 fL 7.0- 10.0 fL Platelet (test code = Platelet) 316 10*9/L 150- 440 10*9/L nRBC (test code = nRBC) 1 /100 WBCs <=4 /100 WBCs Variable HGB Concentration (test code = Slight Not Pres ent Variable HGB Concentration) Macrocytosis (test code = Macrocytosis) Marked Not Pres ent Anisocytosis (test code = Anisocytosis) Moderate Not Pres ent Hypochromasia (test code = Hypochromasia) Slight Not Pr esent Manual Mrramadnmzsd1623-09-09 15:27:00 Test Item Value Reference Range Comments Neutrophils % (test code = Neutrophils %) 52 % Lymphocytes % (test code = Lymphocytes %) 37 % Monocytes % (test code = Monocytes %) 9 % Eosinophils % (test code = Eosinophils %) 1 % Basophils % (test code = Basophils %) 1 % Absolute Neutrophils (test code = Absolute 2.0 10*9/L 2.0- 7.5 10*9/L Neutrophils) Absolute Lymphocytes (test code = Absolute 1.4 10*9/L 1.5- 5.0 10*9/L Lymphocytes) Absolute Monocytes (test code = Absolute 0.3 10*9/L 0.2- 0. 8 10*9/L Monocytes) Absolute Eosinophils (test code = Absolute 0.0 10*9/L 0.0- 0.4 10*9/L Eosinophils) Absolute Basophils (test code = Absolute 0.0 10*9/L 0.0- 0. 1 10*9/L Basophils) Morphology [id number] 15:27:00 Test Item Value Reference Range Comments Smear Review Comments (test code = Smear Review See Comment Undefined Comments) Polychromasia (test code = Polychromasia) Slight Not Pr esent Target Cells (test code = Target Cells) Moderate Not Pres ent Poikilocytosis (test code = Poikilocytosis) Moderate Not Present XR Chest 2 [id number] 14:42:43XR Chest 2 views (11/27/2017 2:35 PM) Impressions Performed At Peribronchial thickening involving the bilateral lower lobe airways, similar to the prior exam. No focal lung consolidation. [facility] Narrative Performed At EXAM: XR CHEST 2 VIEWS DATE: 11/27/2017 2:35 PM DICTATED: 11/27/2017 2:42 PM INTERPRETATION LOCATION: [facility] CLINICAL INDICATION: 36 years old Male with OTHER-D57.45-Utlpxe-rszg with crisis (CMS-HCC) COMPARISON: 10/18/2017. TECHNIQUE: PA and Lateral Chest R adiographs. FINDINGS: Left-sided Port-A-Cath with distal tip in the lower SVC. Peribronchial thickening involving the bilateral lower lobe airways. No focal lung consolidation. No pleural effusion or pneumothorax. Stable cardiomediastinal silhouette. [facility] Procedure Note Interface, Rad Results In - 11/27/2017 2:45 PM EDT EXAM: XR CHEST 2 VIEWS DATE: 11/27/2017 2:35 PM DICTATED: 11/27/2017 2:42 PM INTERPRETATION LOCATION: [facility] CLINICAL INDICATION: 36 years old Male with OTHER-D57.31-Xqnsyo-gcbq with crisis ([facility] [place] COMPARISON: 10/18/2017. TECHNIQUE: PA and Lateral ChestRadiographs. FINDINGS: Left-sided Port-A-Cath with distal tip in the lower SVC. Peribronchial thickening involving the bilateral lower lobe airways. No focal lung consolidation. No pleural effusion or pneumothorax. Stable cardiomediastinal silhouette. IMPRESSION: Peribronchial thickening involving thebilateral lower lobe airways, similar to the prior exam. No focal lung consolidation. Performing Organization Address City/State/Zipcode Phone Number [facility] [address] [place] [address]#[id number] 14:42:43XR Chest 2 views (11/27/2017 2:35 PM EDT)SpecimenImpressionsPerformed At Peribronchial thickening involving the bilateral lower lobe airways, similar to the prior exam. No focal lung consolidation.[facility] [place]NarrativePerformed AtEXAM: XR CHEST 2 VIEWSDATE: 11/27/2017 2:35 PMACCESSION: [id number]:11/27/2017 2:42 PMINTERPRETATION LOCATION: [facility] CLINICAL INDICATION: 36 years old Male with OTHE R-D57.51-Fyxgck-bwax with crisis ([facility] [place] COMPARISON: 10/18/2017. TECHNIQUE: PA and Lateral Chest Radiographs. FINDINGS: Left-sided Port-A-Cath with distal tip in the lower SVC. Peribronchial thickening involving the bilateral lower lobe airways. No focal lung consolidation. No pleural effusion orpneumothorax. Stable cardiomediastinal silhouette. [facility] [place]Procedure NoteInterface, Rad Results In - 11/27/2017 2:45 PM EDTEXAM: XR CHEST 2 VIEWS DATE: 11/27/2017 2:35 PM DICTATED: 11/27/2017 2:42 PM INTERPRETATION LOCATION: [facility] CLINICAL INDICATION: 36 years old Male with OTHER-D57.95-Xovrdr-tzvw with crisis (CMS-HCC) COMPARISON: 10/18/2017. TECHNIQUE: PA and Lateral Chest R adiographs. FINDINGS: Left-sided Port-A-Cath with distal tip in the lower SVC. Peribronchial thickening involving the bilateral lower lobe airways. No focal lung consolidation. No pleural effusion or pneumothorax. Stable cardiomediastinal silhouette. IMPRESSION: Peribronchial thickening involving the bilateral lower lobe airways, similar to the prior exam. No focal lung consolidation.Performing OrganizationAddressCity/State/ZipcodePhone Number[facility] [place] [id number] [facility].[place], [place] [address]ISH w/ Vgdyayunudpa1115-09-21 04:54:00 Test Item Value Reference Range Comments WBC (test code = WBC) 6.5 10*9/L 4.5- 11.0 10*9/L RBC (test code = RBC) 2.62 10*12/L 4.50- 5.90 10*12/L HGB (test code = HGB) 9.1 g/dL 13.5- 17.5 g/dL HCT (test code = HCT) 27.3 % 41.0- 53.0 % MCV (test code = MCV) 104.0 fL 80.0- 100.0 fL MCH (test code = MCH) 34.6 pg 26.0- 34.0 pg MCHC (test code = MCHC) 33.2 g/dL 31.0- 37.0 g/dL RDW (test code = RDW) 19.2 % 12.0- 15.0 % MPV (test code = MPV) 7.6 fL 7.0- 10.0 fL Platelet (test code = Platelet) 285 10*9/L 150- 440 10*9/L Variable HGB Concentration (test code = Slight Not Pres ent Variable HGB Concentration) Absolute Neutrophils (test code = Absolute 3.7 10*9/L 2.0- 7.5 10*9/L Neutrophils) Absolute Lymphocytes (test code = Absolute 2.0 10*9/L 1.5- 5.0 10*9/L Lymphocytes) Absolute Monocytes (test code = Absolute 0.3 10*9/L 0.2- 0. 8 10*9/L Monocytes) Absolute Eosinophils (test code = Absolute 0.2 10*9/L 0.0- 0.4 10*9/L Eosinophils) Absolute Basophils (test code = Absolute 0.0 10*9/L 0.0- 0. 1 10*9/L Basophils) Large Unstained Cells (test code = Large 4 % 0- 4 % Unstained Cells) Macrocytosis (test code = Macrocytosis) Marked Not Pres ent Anisocytosis (test code = Anisocytosis) Moderate Not Pres ent Hypochromasia (test code = Hypochromasia) Slight Not Pr esent CBC w/ [id number] 04:54:00CBC w/ Differential (10/26/2017 4:54 AM) Specimen Performing Laboratory Blood [facility] Narrative The following orders were created for panel order CBC w/ Differential. Procedure? Abnormality? Status? ---------? ------? CBC w/ Differential[[id number]]? Abnormal?Final result? Please view results for these tests on the individual orders.Comprehensive metabolic voeqe0545-10-03 06:21:00 Test Item Value Reference Range Comments Sodium (test code = Sodium) 140 mmol/L 135- 145 mmol/L Potassium (test code = Potassium) 3.7 mmol/L 3.5- 5.0 mmol/ L Chloride (test code = Chloride) 103 mmol/L 98- 107 mmol/L CO2 (test code = CO2) 28.0 mmol/L 22.0- 30.0 mmol/L BUN (test code = BUN) 9 mg/dL 7- 21 mg/dL Creatinine (test code = Creatinine) 0.57 mg/dL 0.70- 1.30 m g/dL BUN/Creatinine Ratio (test code = 16 BUN/Creatinine Ratio) EGFR MDRD Non Af Amer (test code = EGFR MDRD >=60 >=6 0 mL/min/1.73m2 Non Af Amer) EGFR MDRD Af Amer (test code = EGFR MDRD Af >=60 >=60 mL/min/1.73m2 Amer) Anion Gap (test code = Anion Gap) 9 mmol/L 9- 15 mmol/L Glucose (test code = Glucose) 129 mg/dL 65- 179 mg/dL Calcium (test code = Calcium) 8.6 mg/dL 8.5- 10.2 mg/dL Albumin (test code = Albumin) 3.5 g/dL 3.5- 5.0 g/dL Total Protein (test code = Total Protein) 7.0 g/dL 6.5- 8 .3 g/dL Total Bilirubin (test code = Total Bilirubin) 2.1 mg/dL 0. 0- 1.2 mg/dL AST (test code = AST) 27 U/L 19- 55 U/L ALT (test code = ALT) 23 U/L 19- 72 U/L Alkaline Phosphatase (test code = Alkaline 56 U/L 38- 1 26 U/L Phosphatase) Lactate phmdmbrykfwcr6657-13-53 06:21:00 Test Item Value Reference Range Comments LDH (test code = LDH) 816 U/L 338- 610 U/L CBC w/ Hnknfbgtpevo7899-59-61 06:21:00 Test Item Value Reference Range Comments WBC (test code = WBC) 3.8 10*9/L 4.5- 11.0 10*9/L RBC (test code = RBC) 2.43 10*12/L 4.50- 5.90 10*12/L HGB (test code = HGB) 8.4 g/dL 13.5- 17.5 g/dL HCT (test code = HCT) 25.3 % 41.0- 53.0 % MCV (test code = MCV) 104.1 fL 80.0- 100.0 fL MCH (test code = MCH) 34.4 pg 26.0- 34.0 pg MCHC (test code = MCHC) 33.1 g/dL 31.0- 37.0 g/dL RDW (test code = RDW) 18.9 % 12.0- 15.0 % MPV (test code = MPV) 7.5 fL 7.0- 10.0 fL Platelet (test code = Platelet) 239 10*9/L 150- 440 10*9/L Variable HGB Concentration (test code = Slight Not Pres ent Variable HGB Concentration) Absolute Neutrophils (test code = Absolute 1.4 10*9/L 2.0- 7.5 10*9/L Neutrophils) Absolute Lymphocytes (test code = Absolute 1.9 10*9/L 1.5- 5.0 10*9/L Lymphocytes) Absolute Monocytes (test code = Absolute 0.2 10*9/L 0.2- 0. 8 10*9/L Monocytes) Absolute Eosinophils (test code = Absolute 0.1 10*9/L 0.0- 0.4 10*9/L Eosinophils) Absolute Basophils (test code = Absolute 0.0 10*9/L 0.0- 0. 1 10*9/L Basophils) Large Unstained Cells (test code = Large 5 % 0- 4 % Unstained Cells) Macrocytosis (test code = Macrocytosis) Marked Not Pres ent Anisocytosis (test code = Anisocytosis) Moderate Not Pres ent Hyperchromasia (test code = Hyperchromasia) Slight Not Present Hypochromasia (test code = Hypochromasia) Slight Not Pr esent Morphology [id number] 06:21:00 Test Item Value Reference Range Comments Smear Review Comments (test code = Smear Review See Comment Undefined Comments) CBC w/ Trvynibmewns9936-53-87 06:21:00CBC w/ Differential (10/25/2017 6:21 AM) Specimen Performing Laboratory Blood [facility] Narrative The following orders were created for panel order CBC w/ Differential. Procedure? Abnormality? Status? ---------? ------? CBC w/ Differential[[id number]]? Abnormal?Final result? Morphology Review[[id number]]? Abnormal?Final result? Please view results for these tests on the individual orders.Comprehensive metabolic panel 2017-10-24 06:14:00 Test Item Value Reference Range Comments Sodium (test code = Sodium) 140 mmol/L 135- 145 mmol/L Potassium (test code = Potassium) 3.6 mmol/L 3.5- 5.0 mmol/ L Chloride (test code = Chloride) 102 mmol/L 98- 107 mmol/L CO2 (test code = CO2) 29.0 mmol/L 22.0- 30.0 mmol/L BUN (test code = BUN) 11 mg/dL 7- 21 mg/dL Creatinine (test code = Creatinine) 0.55 mg/dL 0.70- 1.30 m g/dL BUN/Creatinine Ratio (test code = 20 BUN/Creatinine Ratio) EGFR MDRD Non Af Amer (test code = EGFR MDRD >=60 >=6 0 mL/min/1.73m2 Non Af Amer) EGFR MDRD Af Amer (test code = EGFR MDRD Af >=60 >=60 mL/min/1.73m2 Amer) Anion Gap (test code = Anion Gap) 9 mmol/L 9- 15 mmol/L Glucose (test code = Glucose) 108 mg/dL 65- 179 mg/dL Calcium (test code = Calcium) 8.6 mg/dL 8.5- 10.2 mg/dL Albumin (test code = Albumin) 3.6 g/dL 3.5- 5.0 g/dL Total Protein (test code = Total Protein) 7.2 g/dL 6.5- 8 .3 g/dL Total Bilirubin (test code = Total Bilirubin) 1.4 mg/dL 0. 0- 1.2 mg/dL AST (test code = AST) 27 U/L 19- 55 U/L ALT (test code = ALT) 22 U/L 19- 72 U/L Alkaline Phosphatase (test code = Alkaline 55 U/L 38- 1 26 U/L Phosphatase) Lactate [id number] 06:14:00 Test Item Value Reference Range Comments LDH (test code = LDH) 801 U/L 338- 610 U/L CBC w/ [id number] 06:14:00 Test Item Value Reference Range Comments WBC (test code = WBC) 4.2 10*9/L 4.5- 11.0 10*9/L RBC (test code = RBC) 2.51 10*12/L 4.50- 5.90 10*12/L HGB (test code = HGB) 8.8 g/dL 13.5- 17.5 g/dL HCT (test code = HCT) 26.1 % 41.0- 53.0 % MCV (test code = MCV) 104.2 fL 80.0- 100.0 fL MCH (test code = MCH) 35.0 pg 26.0- 34.0 pg MCHC (test code = MCHC) 33.6 g/dL 31.0- 37.0 g/dL RDW (test code = RDW) 18.0 % 12.0- 15.0 % MPV (test code = MPV) 6.6 fL 7.0- 10.0 fL Platelet (test code = Platelet) 237 10*9/L 150- 440 10*9/L Variable HGB Concentration (test code = Moderate Not Pres ent Variable HGB Concentration) Absolute Neutrophils (test code = Absolute 2.0 10*9/L 2.0- 7.5 10*9/L Neutrophils) Absolute Lymphocytes (test code = Absolute 1.6 10*9/L 1.5- 5.0 10*9/L Lymphocytes) Absolute Monocytes (test code = Absolute 0.2 10*9/L 0.2- 0. 8 10*9/L Monocytes) Absolute Eosinophils (test code = Absolute 0.2 10*9/L 0.0- 0.4 10*9/L Eosinophils) Absolute Basophils (test code = Absolute 0.0 10*9/L 0.0- 0. 1 10*9/L Basophils) Large Unstained Cells (test code = Large 4 % 0- 4 % Unstained Cells) Macrocytosis (test code = Macrocytosis) Marked Not Pres ent Anisocytosis (test code = Anisocytosis) Moderate Not Pres ent Hyperchromasia (test code = Hyperchromasia) Slight Not Present Hypochromasia (test code = Hypochromasia) Slight Not Pr esent CBC w/ [id number] 06:14:00CBC w/ Differential (10/24/2017 6:14 AM) Specimen Performing Laboratory Blood [facility] Narrative The following orders were created for panel order CBC w/ Differential. Procedure? Abnormality? Status? ---------? ------? CBC w/ Differential[[id number]]? Abnormal?Final result? Please view results for these tests on the individual orders.Comprehensive metabolic [id number] 06:04:00 Test Item Value Reference Range Comments Sodium (test code = Sodium) 142 mmol/L 135- 145 mmol/L Potassium (test code = Potassium) 3.6 mmol/L 3.5- 5.0 mmol/ L Chloride (test code = Chloride) 103 mmol/L 98- 107 mmol/L CO2 (test code = CO2) 30.0 mmol/L 22.0- 30.0 mmol/L BUN (test code = BUN) 11 mg/dL 7- 21 mg/dL Creatinine (test code = Creatinine) 0.58 mg/dL 0.70- 1.30 m g/dL BUN/Creatinine Ratio (test code = 19 BUN/Creatinine Ratio) EGFR MDRD Non Af Amer (test code = EGFR MDRD >=60 >=6 0 mL/min/1.73m2 Non Af Amer) EGFR MDRD Af Amer (test code = EGFR MDRD Af >=60 >=60 mL/min/1.73m2 Amer) Anion Gap (test code = Anion Gap) 9 mmol/L 9- 15 mmol/L Glucose (test code = Glucose) 101 mg/dL 65- 179 mg/dL Calcium (test code = Calcium) 8.9 mg/dL 8.5- 10.2 mg/dL Albumin (test code = Albumin) 3.7 g/dL 3.5- 5.0 g/dL Total Protein (test code = Total Protein) 7.1 g/dL 6.5- 8 .3 g/dL Total Bilirubin (test code = Total Bilirubin) 2.3 mg/dL 0. 0- 1.2 mg/dL AST (test code = AST) 29 U/L 19- 55 U/L ALT (test code = ALT) 22 U/L 19- 72 U/L Alkaline Phosphatase (test code = Alkaline 53 U/L 38- 1 26 U/L Phosphatase) Lactate [id number] 06:04:00 Test Item Value Reference Range Comments LDH (test code = LDH) 788 U/L 338- 610 U/L CBC w/ [id number] 06:04:00 Test Item Value Reference Range Comments Results Verified by Slide Scan (test code Slide Reviewed = Results Verified by Slide Scan) WBC (test code = WBC) 4.4 10*9/L 4.5- 11.0 10*9/L RBC (test code = RBC) 2.48 10*12/L 4.50- 5.90 10*12/L HGB (test code = HGB) 8.6 g/dL 13.5- 17.5 g/dL HCT (test code = HCT) 25.9 % 41.0- 53.0 % MCV (test code = MCV) 104.3 fL 80.0- 100.0 fL MCH (test code = MCH) 34.6 pg 26.0- 34.0 pg MCHC (test code = MCHC) 33.2 g/dL 31.0- 37.0 g/dL RDW (test code = RDW) 18.3 % 12.0- 15.0 % MPV (test code = MPV) 7.1 fL 7.0- 10.0 fL Platelet (test code = Platelet) 228 10*9/L 150- 440 10*9/L Variable HGB Concentration (test code = Moderate Not Pres ent Variable HGB Concentration) Absolute Neutrophils (test code = Absolute 2.2 10*9/L 2.0- 7.5 10*9/L Neutrophils) Absolute Lymphocytes (test code = Absolute 1.5 10*9/L 1.5- 5.0 10*9/L Lymphocytes) Absolute Monocytes (test code = Absolute 0.3 10*9/L 0.2- 0. 8 10*9/L Monocytes) Absolute Eosinophils (test code = Absolute 0.2 10*9/L 0.0- 0.4 10*9/L Eosinophils) Absolute Basophils (test code = Absolute 0.0 10*9/L 0.0- 0. 1 10*9/L Basophils) Large Unstained Cells (test code = Large 5 % 0- 4 % Unstained Cells) Macrocytosis (test code = Macrocytosis) Marked Not Pres ent Anisocytosis (test code = Anisocytosis) Moderate Not Pres ent Hyperchromasia (test code = Slight Not Present Hyperchromasia) Hypochromasia (test code = Hypochromasia) Slight Not Pr esent Morphology [id number] 06:04:00 Test Item Value Reference Range Comments Smear Review Comments (test code = Smear Review See Comment Undefined Comments) Polychromasia (test code = Polychromasia) Slight Not Pr esent Target Cells (test code = Target Cells) Moderate Not Pres ent Hypersegmented Neutrophils (test code = Present Not Pres ent Hypersegmented Neutrophils) Toxic Vacuolation (test code = Toxic Present Not Present Vacuolation) Poikilocytosis (test code = Poikilocytosis) Moderate Not Present CBC w/ [id number] 06:04:00CBC w/ Differential (10/23/2017 6:04 AM) Specimen Performing Laboratory Blood [facility] Narrative The following orders were created for panel order CBC w/ Differential. Procedure? Abnormality? Status? ---------? ------? CBC w/ Differential[[id number]]? Abnormal?Final result? Morphology Review[[id number]]? Abnormal?Final result? Please view results for these tests on the individual orders.Comprehensive metabolic panel 2017-10-22 03:50:00 Test Item Value Reference Range Comments Sodium (test code = Sodium) 141 mmol/L 135- 145 mmol/L Potassium (test code = Potassium) 4.2 mmol/L 3.5- 5.0 mmol/ L Chloride (test code = Chloride) 100 mmol/L 98- 107 mmol/L CO2 (test code = CO2) 29.0 mmol/L 22.0- 30.0 mmol/L BUN (test code = BUN) 11 mg/dL 7- 21 mg/dL Creatinine (test code = Creatinine) 0.68 mg/dL 0.70- 1.30 m g/dL BUN/Creatinine Ratio (test code = 16 BUN/Creatinine Ratio) EGFR MDRD Non Af Amer (test code = EGFR MDRD >=60 >=6 0 mL/min/1.73m2 Non Af Amer) EGFR MDRD Af Amer (test code = EGFR MDRD Af >=60 >=60 mL/min/1.73m2 Amer) Anion Gap (test code = Anion Gap) 12 mmol/L 9- 15 mmol/L Glucose (test code = Glucose) 94 mg/dL 65- 179 mg/dL Calcium (test code = Calcium) 8.6 mg/dL 8.5- 10.2 mg/dL Albumin (test code = Albumin) 3.9 g/dL 3.5- 5.0 g/dL Total Protein (test code = Total Protein) 7.4 g/dL 6.5- 8 .3 g/dL Total Bilirubin (test code = Total Bilirubin) 1.3 mg/dL 0. 0- 1.2 mg/dL AST (test code = AST) 28 U/L 19- 55 U/L ALT (test code = ALT) 25 U/L 19- 72 U/L Alkaline Phosphatase (test code = Alkaline 54 U/L 38- 1 26 U/L Phosphatase) Lactate [id number] 03:50:00 Test Item Value Reference Range Comments LDH (test code = LDH) 821 U/L 338- 610 U/L CBC w/ [id number] 03:50:00 Test Item Value Reference Range Comments WBC (test code = WBC) 3.8 10*9/L 4.5- 11.0 10*9/L RBC (test code = RBC) 2.57 10*12/L 4.50- 5.90 10*12/L HGB (test code = HGB) 8.9 g/dL 13.5- 17.5 g/dL HCT (test code = HCT) 27.0 % 41.0- 53.0 % MCV (test code = MCV) 105.1 fL 80.0- 100.0 fL MCH (test code = MCH) 34.7 pg 26.0- 34.0 pg MCHC (test code = MCHC) 33.0 g/dL 31.0- 37.0 g/dL RDW (test code = RDW) 18.6 % 12.0- 15.0 % MPV (test code = MPV) 7.3 fL 7.0- 10.0 fL Platelet (test code = Platelet) 239 10*9/L 150- 440 10*9/L Variable HGB Concentration (test code = Moderate Not Pres ent Variable HGB Concentration) Absolute Neutrophils (test code = Absolute 1.9 10*9/L 2.0- 7.5 10*9/L Neutrophils) Absolute Lymphocytes (test code = Absolute 1.3 10*9/L 1.5- 5.0 10*9/L Lymphocytes) Absolute Monocytes (test code = Absolute 0.3 10*9/L 0.2- 0. 8 10*9/L Monocytes) Absolute Eosinophils (test code = Absolute 0.2 10*9/L 0.0- 0.4 10*9/L Eosinophils) Absolute Basophils (test code = Absolute 0.0 10*9/L 0.0- 0. 1 10*9/L Basophils) Large Unstained Cells (test code = Large 5 % 0- 4 % Unstained Cells) Macrocytosis (test code = Macrocytosis) Marked Not Pres ent Anisocytosis (test code = Anisocytosis) Moderate Not Pres ent Hyperchromasia (test code = Hyperchromasia) Slight Not Present Hypochromasia (test code = Hypochromasia) Slight Not Pr esent Morphology [id number] 03:50:00 Test Item Value Reference Range Comments Smear Review Comments (test code = Smear Review See Comment Undefined Comments) Giant Platelets (test code = Giant Platelets) Present No t Present Poikilocytosis (test code = Poikilocytosis) Moderate Not Present CBC w/ [id number] 03:50:00CBC w/ Differential (10/22/2017 3:50 AM) Specimen Performing Laboratory Blood [facility] Narrative The following orders were created for panel order CBC w/ Differential. Procedure? Abnormality? Status? ---------? ------? CBC w/ Differential[[id number]]? Abnormal?Final result? Morphology Review[[id number]]? Abnormal?Final result? Please view results for these tests on the individual orders.Vancomycin, [id number] 20:12:00 Test Item Value Reference Range Comments Vancomycin Tr (test code = Vancomycin Tr) 11.3 ug/mL 10.0- 20.0 ug/mL Comprehensive metabolic [id number] 06:12:00 Test Item Value Reference Range Comments Sodium (test code = Sodium) 141 mmol/L 135- 145 mmol/L Potassium (test code = Potassium) 4.0 mmol/L 3.5- 5.0 mmol/ L Chloride (test code = Chloride) 101 mmol/L 98- 107 mmol/L CO2 (test code = CO2) 33.0 mmol/L 22.0- 30.0 mmol/L BUN (test code = BUN) 7 mg/dL 7- 21 mg/dL Creatinine (test code = Creatinine) 0.59 mg/dL 0.70- 1.30 m g/dL BUN/Creatinine Ratio (test code = 12 BUN/Creatinine Ratio) EGFR MDRD Non Af Amer (test code = EGFR MDRD >=60 >=6 0 mL/min/1.73m2 Non Af Amer) EGFR MDRD Af Amer (test code = EGFR MDRD Af >=60 >=60 mL/min/1.73m2 Amer) Anion Gap (test code = Anion Gap) 7 mmol/L 9- 15 mmol/L Glucose (test code = Glucose) 93 mg/dL 65- 179 mg/dL Calcium (test code = Calcium) 8.7 mg/dL 8.5- 10.2 mg/dL Albumin (test code = Albumin) 3.6 g/dL 3.5- 5.0 g/dL Total Protein (test code = Total Protein) 7.2 g/dL 6.5- 8 .3 g/dL Total Bilirubin (test code = Total Bilirubin) 0.9 mg/dL 0. 0- 1.2 mg/dL AST (test code = AST) 25 U/L 19- 55 U/L ALT (test code = ALT) 24 U/L 19- 72 U/L Alkaline Phosphatase (test code = Alkaline 53 U/L 38- 1 26 U/L Phosphatase) Lactate [id number] 06:12:00 Test Item Value Reference Range Comments LDH (test code = LDH) 807 U/L 338- 610 U/L CBC w/ [id number] 06:12:00 Test Item Value Reference Range Comments WBC (test code = WBC) 3.7 10*9/L 4.5- 11.0 10*9/L RBC (test code = RBC) 2.45 10*12/L 4.50- 5.90 10*12/L HGB (test code = HGB) 8.7 g/dL 13.5- 17.5 g/dL HCT (test code = HCT) 25.8 % 41.0- 53.0 % MCV (test code = MCV) 105.2 fL 80.0- 100.0 fL MCH (test code = MCH) 35.6 pg 26.0- 34.0 pg MCHC (test code = MCHC) 33.9 g/dL 31.0- 37.0 g/dL RDW (test code = RDW) 18.5 % 12.0- 15.0 % MPV (test code = MPV) 6.6 fL 7.0- 10.0 fL Platelet (test code = Platelet) 236 10*9/L 150- 440 10*9/L Variable HGB Concentration (test code = Moderate Not Pres ent Variable HGB Concentration) Absolute Neutrophils (test code = Absolute 1.8 10*9/L 2.0- 7.5 10*9/L Neutrophils) Absolute Lymphocytes (test code = Absolute 1.3 10*9/L 1.5- 5.0 10*9/L Lymphocytes) Absolute Monocytes (test code = Absolute 0.2 10*9/L 0.2- 0. 8 10*9/L Monocytes) Absolute Eosinophils (test code = Absolute 0.2 10*9/L 0.0- 0.4 10*9/L Eosinophils) Absolute Basophils (test code = Absolute 0.0 10*9/L 0.0- 0. 1 10*9/L Basophils) Large Unstained Cells (test code = Large 4 % 0- 4 % Unstained Cells) Macrocytosis (test code = Macrocytosis) Marked Not Pres ent Anisocytosis (test code = Anisocytosis) Moderate Not Pres ent Hyperchromasia (test code = Hyperchromasia) Slight Not Present Hypochromasia (test code = Hypochromasia) Slight Not Pr esent [id number] 06:12:00 Test Item Value Reference Range Comments Reticulocyte Manual % (test code = 6.4 % 0.8- 2.5 % Reticulocyte Manual %) Absolute Manual Reticulocyte (test code = 166.4 10*9/L 27.0- 120.0 10*9/L Absolute Manual Reticulocyte) CBC w/ [id number] 06:12:00CBC w/ Differential (10/21/2017 6:12 AM) Specimen Performing Laboratory Blood [facility] Narrative The following orders were created for panel order CBC w/ Differential. Procedure? Abnormality? Status? ---------? ------? CBC w/ Differential[[id number]]? Abnormal?Final result? Please view results for these tests on the individual orders.Vancomycin, [id number] 17:13:00 Test Item Value Reference Range Comments Vancomycin Tr (test code = Vancomycin Tr) 8.5 ug/mL 10.0- 20.0 ug/mL Comprehensive metabolic [id number] 05:24:00 Test Item Value Reference Range Comments Sodium (test code = Sodium) 141 mmol/L 135- 145 mmol/L Potassium (test code = Potassium) 4.5 mmol/L 3.5- 5.0 mmol/ L Chloride (test code = Chloride) 104 mmol/L 98- 107 mmol/L CO2 (test code = CO2) 31.0 mmol/L 22.0- 30.0 mmol/L BUN (test code = BUN) 7 mg/dL 7- 21 mg/dL Creatinine (test code = Creatinine) 0.62 mg/dL 0.70- 1.30 m g/dL BUN/Creatinine Ratio (test code = 11 BUN/Creatinine Ratio) EGFR MDRD Non Af Amer (test code = EGFR MDRD >=60 >=6 0 mL/min/1.73m2 Non Af Amer) EGFR MDRD Af Amer (test code = EGFR MDRD Af >=60 >=60 mL/min/1.73m2 Amer) Anion Gap (test code = Anion Gap) 6 mmol/L 9- 15 mmol/L Glucose (test code = Glucose) 86 mg/dL 65- 179 mg/dL Calcium (test code = Calcium) 8.3 mg/dL 8.5- 10.2 mg/dL Albumin (test code = Albumin) 3.6 g/dL 3.5- 5.0 g/dL Total Protein (test code = Total Protein) 6.9 g/dL 6.5- 8 .3 g/dL Total Bilirubin (test code = Total Bilirubin) 0.9 mg/dL 0. 0- 1.2 mg/dL AST (test code = AST) 25 U/L 19- 55 U/L ALT (test code = ALT) 24 U/L 19- 72 U/L Alkaline Phosphatase (test code = Alkaline 55 U/L 38- 1 26 U/L Phosphatase) Lactate [id number] 05:24:00 Test Item Value Reference Range Comments LDH (test code = LDH) 752 U/L 338- 610 U/L CBC w/ [id number] 05:24:00 Test Item Value Reference Range Comments WBC (test code = WBC) 4.4 10*9/L 4.5- 11.0 10*9/L RBC (test code = RBC) 2.53 10*12/L 4.50- 5.90 10*12/L HGB (test code = HGB) 8.7 g/dL 13.5- 17.5 g/dL HCT (test code = HCT) 27.2 % 41.0- 53.0 % MCV (test code = MCV) 107.3 fL 80.0- 100.0 fL MCH (test code = MCH) 34.4 pg 26.0- 34.0 pg MCHC (test code = MCHC) 32.1 g/dL 31.0- 37.0 g/dL RDW (test code = RDW) 19.0 % 12.0- 15.0 % MPV (test code = MPV) 7.1 fL 7.0- 10.0 fL Platelet (test code = Platelet) 233 10*9/L 150- 440 10*9/L nRBC (test code = nRBC) 3 /100 WBCs <=4 /100 WBCs Variable HGB Concentration (test code = Moderate Not Pres ent Variable HGB Concentration) Absolute Neutrophils (test code = Absolute 1.7 10*9/L 2.0- 7.5 10*9/L Neutrophils) Absolute Lymphocytes (test code = Absolute 1.9 10*9/L 1.5- 5.0 10*9/L Lymphocytes) Absolute Monocytes (test code = Absolute 0.3 10*9/L 0.2- 0. 8 10*9/L Monocytes) Absolute Eosinophils (test code = Absolute 0.1 10*9/L 0.0- 0.4 10*9/L Eosinophils) Absolute Basophils (test code = Absolute 0.0 10*9/L 0.0- 0. 1 10*9/L Basophils) Large Unstained Cells (test code = Large 6 % 0- 4 % Unstained Cells) Macrocytosis (test code = Macrocytosis) Marked Not Pres ent Anisocytosis (test code = Anisocytosis) Moderate Not Pres ent Hyperchromasia (test code = Hyperchromasia) Slight Not Present Hypochromasia (test code = Hypochromasia) Slight Not Pr esent Morphology [id number] 05:24:00 Test Item Value Reference Range Comments Smear Review Comments (test code = Smear Review See Comment Undefined Comments) CBC w/ [id number] 05:24:00CBC w/ Differential (10/20/2017 5:24 AM) Specimen Performing Laboratory Blood [facility] Narrative The following orders were created for panel order CBC w/ Differential. Procedure? Abnormality? Status? ---------? ------? CBC w/ Differential[[id number]]? Abnormal?Final result? Morphology Review[[id number]]? Abnormal?Final result? Please view results for these tests on the individual orders.Comprehensive metabolic panel 2017-10-19 06:13:00 Test Item Value Reference Range Comments Sodium (test code = Sodium) 143 mmol/L 135- 145 mmol/L Potassium (test code = Potassium) 4.1 mmol/L 3.5- 5.0 mmol/ L Chloride (test code = Chloride) 101 mmol/L 98- 107 mmol/L CO2 (test code = CO2) 32.0 mmol/L 22.0- 30.0 mmol/L BUN (test code = BUN) 7 mg/dL 7- 21 mg/dL Creatinine (test code = Creatinine) 0.67 mg/dL 0.70- 1.30 m g/dL BUN/Creatinine Ratio (test code = 10 BUN/Creatinine Ratio) EGFR MDRD Non Af Amer (test code = EGFR MDRD >=60 >=6 0 mL/min/1.73m2 Non Af Amer) EGFR MDRD Af Amer (test code = EGFR MDRD Af >=60 >=60 mL/min/1.73m2 Amer) Anion Gap (test code = Anion Gap) 10 mmol/L 9- 15 mmol/L Glucose (test code = Glucose) 100 mg/dL 65- 179 mg/dL Calcium (test code = Calcium) 8.8 mg/dL 8.5- 10.2 mg/dL Albumin (test code = Albumin) 3.9 g/dL 3.5- 5.0 g/dL Total Protein (test code = Total Protein) 7.4 g/dL 6.5- 8 .3 g/dL Total Bilirubin (test code = Total Bilirubin) 1.1 mg/dL 0. 0- 1.2 mg/dL AST (test code = AST) 26 U/L 19- 55 U/L ALT (test code = ALT) 23 U/L 19- 72 U/L Alkaline Phosphatase (test code = Alkaline 63 U/L 38- 1 26 U/L Phosphatase) CBC w/ [id number] 06:13:00 Test Item Value Reference Range Comments Results Verified by Slide Scan (test code Slide Reviewed = Results Verified by Slide Scan) WBC (test code = WBC) 5.5 10*9/L 4.5- 11.0 10*9/L RBC (test code = RBC) 2.60 10*12/L 4.50- 5.90 10*12/L HGB (test code = HGB) 9.2 g/dL 13.5- 17.5 g/dL HCT (test code = HCT) 27.8 % 41.0- 53.0 % MCV (test code = MCV) 106.7 fL 80.0- 100.0 fL MCH (test code = MCH) 35.3 pg 26.0- 34.0 pg MCHC (test code = MCHC) 33.1 g/dL 31.0- 37.0 g/dL RDW (test code = RDW) 19.4 % 12.0- 15.0 % MPV (test code = MPV) 6.4 fL 7.0- 10.0 fL Platelet (test code = Platelet) 242 10*9/L 150- 440 10*9/L nRBC (test code = nRBC) 2 /100 WBCs <=4 /100 WBCs Variable HGB Concentration (test code = Moderate Not Pres ent Variable HGB Concentration) Absolute Neutrophils (test code = Absolute 2.9 10*9/L 2.0- 7.5 10*9/L Neutrophils) Absolute Lymphocytes (test code = Absolute 1.9 10*9/L 1.5- 5.0 10*9/L Lymphocytes) Absolute Monocytes (test code = Absolute 0.3 10*9/L 0.2- 0. 8 10*9/L Monocytes) Absolute Eosinophils (test code = Absolute 0.1 10*9/L 0.0- 0.4 10*9/L Eosinophils) Absolute Basophils (test code = Absolute 0.0 10*9/L 0.0- 0. 1 10*9/L Basophils) Large Unstained Cells (test code = Large 4 % 0- 4 % Unstained Cells) Macrocytosis (test code = Macrocytosis) Marked Not Pres ent Anisocytosis (test code = Anisocytosis) Moderate Not Pres ent Hyperchromasia (test code = Slight Not Present Hyperchromasia) Hypochromasia (test code = Hypochromasia) Slight Not Pr esent Lactate [id number] 06:13:00 Test Item Value Reference Range Comments LDH (test code = LDH) 783 U/L 338- 610 U/L Type and [id number] 06:13:00 Test Item Value Reference Range Comments ABO Grouping (test code = ABO Grouping) O POS Antibody Screen (test code = Antibody Screen) NEG Morphology [id number] 06:13:00 Test Item Value Reference Range Comments Smear Review Comments (test code = Smear Review See Comment Undefined Comments) Polychromasia (test code = Polychromasia) Slight Not Pr esent Target Cells (test code = Target Cells) Moderate Not Pres ent [place] Cells (test code = [place] Cells) Present Not Present Poikilocytosis (test code = Poikilocytosis) Marked Not Present CBC w/ [id number] 06:13:00CBC w/ Differential (10/19/2017 6:13 AM) Specimen Performing Laboratory Blood [facility] Narrative The following orders were created for panel order CBC w/ Differential. Procedure? Abnormality? Status? ---------? ------? CBC w/ Differential[[id number]]? Abnormal?Final result? Morphology Review[[id number]]? Abnormal?Final result? Please view results for these tests on the individual orders.XR INTERPRETATION OF OUTSIDE [id number] 02:40:05XR INTERPRETATION OF OUTSIDE FILM (10/19/2017 2:40 AM) Specimen Performing Laboratory [facility] [address] [address] Narrative EXAM: XR INTERPRETATION OF OUTSIDE FILM DATE: 10/19/2017 2:40 AM DICTATED: 10/19/2017 7:47 AM INTERPRETATION LOCATION: [facility] CLINICAL INDICATION: 36 years old Male with PNEUMONIA-J18.9-Pneumonia due to infectious organism, unspecified laterality, unspecified part of lung? COMPARISON: 08/30/2017 TECHNIQUE: PA and lateral chest x-ray from [facility] 10/18/2017 9:57 AM FINDINGS: The left- sided Mediport in its distal tip are unchanged in position. The heart is upper limits of normal to mildly enlarged in size. There is prominence of the pulmonary vasculature without overt pulmonary edema. There is been interval increase of the basilar opacities, left greater than right, and may be the result of infectious infiltrate. Nodefinite pleural fluid or pneumothorax is seen. The rest the study is unchanged. Procedure Note Interface, Rad Results In - 10/19/2017 7:50 AM EDT EXAM: XR INTERPRETATION OF OUTSIDE FILM DATE: 10/19/2017 2:40 AM DICTATED: 10/19/2017 7:47 AM INTERPRETATION LOCATION: [facility] CLINICAL INDICATION: 36 years old Male with PNEUMONIA-J18.9-Pneumonia due to infectious organism, unspecified laterality, unspecified part of lung COMPARISON: 08/30/2017 TECHNIQUE: PA and lateral chest x-ray from [facility] 10/18/2017 9:57 AM FINDINGS: The left-sided Mediport in its distal tip are unchanged in position. The heart is upper limits of normal to mildly enlarged in size. There is prominence of the pulmonary vasculature without overt pulmonary edema. There is been interval increase of the basilar opacities, left greater than right, and may be the result of infectious infiltrate. No definite pleural fluid or pneumothorax is seen. 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 No acute airspace disease to suggest acute chest syndrome. -Unchanged cardiomegaly. Narrative EXAM: XR CHEST PA AND LATERAL DATE: 08/30/2017 1:03 PM DICTATED: 08/30/2017 1:11 PM INTERPRETATION LOCATION: [facility] CLINICAL INDICATION: 36 years old Male with SHORTNESS OF BREATH-- COMPARISON: 06/05/2017. TECHNIQUE: AP and lateral views of thechest. FINDINGS: Left IJ Port-A-Cath unchanged. Lungs well inflated. Unchanged bibasilar reticular opacities and suggestion of underlying bronchiectasis. No new pulmonary edema, atelectasis, or focal consolidation. No pneumothoraces or pleural effusions. Cardiac silhouette stably prominent in size. Noacute osseous abnormalities. Procedure Note Interface, Rad Results In - 08/30/2017 1:15 PM EDT EXAM: XR CHEST PA AND LATERAL DATE: 08/30/2017 1:03 PM DICTATED: 08/30/20171:11 PM INTERPRETATION LOCATION: [facility] CLINICAL INDICATION: 36 years old Male with SHORTNESS OF BREATH-- COMPARISON: 06/05/2017. TECHNIQUE: AP and lateral views of the chest. FINDINGS: Left IJ Port -A-Cath unchanged. Lungs well inflated. Unchanged bibasilar reticular opacities and suggestion of underlying bronchiectasis. No new pulmonary edema, atelectasis, or focal consolidation. No pneumothoraces or pleural effusions. Cardiac silhouette stably prominent in size. No acute osseous abnormalities. 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 No acute airspace disease to suggest acute chest syndrome. -Unchanged cardiomegaly.Comprehensive metabolic panel 2017-08-30 12:01:00 Test Item Value Reference Range Comments Sodium (test code = Sodium) 140 mmol/L 135- 145 mmol/L Potassium (test code = Potassium) 3.7 mmol/L 3.5- 5.0 mmol/ L Chloride (test code = Chloride) 105 mmol/L 98- 107 mmol/L CO2 (test code = CO2) 23.0 mmol/L 22.0- 30.0 mmol/L BUN (test code = BUN) 6 mg/dL 7- 21 mg/dL Creatinine (test code = Creatinine) 0.73 mg/dL 0.70- 1.30 m g/dL BUN/Creatinine Ratio (test code = 8 BUN/Creatinine Ratio) GFR MDRD Non Af Amer (test code = GFR MDRD >=60 >=60 mL/min/1.73m2 Non Af Amer) GFR MDRD Af Amer (test code = GFR MDRD Af >=60 >=60 m L/min/1.73m2 Amer) Anion Gap (test code = Anion Gap) 12 mmol/L 9- 15 mmol/L Glucose (test code = Glucose) 84 mg/dL 65- 179 mg/dL Calcium (test code = Calcium) 8.9 mg/dL 8.5- 10.2 mg/dL Albumin (test code = Albumin) 4.2 g/dL 3.5- 5.0 g/dL Total Protein (test code = Total Protein) 8.1 g/dL 6.6- 8 .0 g/dL Total Bilirubin (test code = Total Bilirubin) 2.5 mg/dL 0. 0- 1.2 mg/dL AST (test code = AST) 30 U/L 19- 55 U/L ALT (test code = ALT) 22 U/L 19- 72 U/L Alkaline Phosphatase (test code = Alkaline 53 U/L 38- 1 26 U/L Phosphatase) [id number] 12:01:00 Test Item Value Reference Range Comments Reticulocyte Manual % (test code = 5.9 % 0.8- 2.5 % Reticulocyte Manual %) Absolute Manual Reticulocyte (test code = 177.0 10*9/L 27.0- 120.0 10*9/L Absolute Manual Reticulocyte) LDH, Lactate [id number] 12:01:00 Test Item Value Reference Range Comments LDH (test code = LDH) 846 U/L 338- 610 U/L CBC w/ [id number] 12:01:00 Test Item Value Reference Range Comments WBC (test code = WBC) 4.4 10*9/L 4.5- 11.0 10*9/L RBC (test code = RBC) 3.06 10*12/L 4.50- 5.90 10*12/L HGB (test code = HGB) 10.2 g/dL 13.5- 17.5 g/dL HCT (test code = HCT) 31.9 % 41.0- 53.0 % MCV (test code = MCV) 104.3 fL 80.0- 100.0 fL MCH (test code = MCH) 33.2 pg 26.0- 34.0 pg MCHC (test code = MCHC) 31.9 g/dL 31.0- 37.0 g/dL RDW (test code = RDW) 20.5 % 12.0- 15.0 % MPV (test code = MPV) 7.3 fL 7.0- 10.0 fL Platelet (test code = Platelet) 375 10*9/L 150- 440 10*9/L nRBC (test code = nRBC) 9 /100 WBCs <=4 /100 WBCs Variable HGB Concentration (test code = Moderate Not Pres ent Variable HGB Concentration) Absolute Neutrophils (test code = Absolute 2.2 10*9/L 2.0- 7.5 10*9/L Neutrophils) Absolute Lymphocytes (test code = Absolute 1.6 10*9/L 1.5- 5.0 10*9/L Lymphocytes) Absolute Monocytes (test code = Absolute 0.3 10*9/L 0.2- 0. 8 10*9/L Monocytes) Absolute Eosinophils (test code = Absolute 0.0 10*9/L 0.0- 0.4 10*9/L Eosinophils) Absolute Basophils (test code = Absolute 0.0 10*9/L 0.0- 0. 1 10*9/L Basophils) Large Unstained Cells (test code = Large 6 % 0- 4 % Unstained Cells) Macrocytosis (test code = Macrocytosis) Marked Not Pres ent Anisocytosis (test code = Anisocytosis) Moderate Not Pres ent Hyperchromasia (test code = Hyperchromasia) Slight Not Present Hypochromasia (test code = Hypochromasia) Moderate Not Pr esent Morphology [id number] 12:01:00 Test Item Value Reference Range Comments Smear Review Comments (test code = Smear Review See Comment Undefined Comments) Polychromasia (test code = Polychromasia) Slight Not Pr esent CBC w/ [id number] 12:01:00CBC w/ Differential (08/30/2017 12:01 PM) Specimen Performing Laboratory Blood [facility] Narrative The following orders were created for panel order CBC w/ Differential. Procedure Abnormality Status --------- ------ CBC w/ Differential[[id number]] AbnormalFinal result Morphology Review[[id number]] AbnormalFinal result Please view results for these tests on the individual orders.CT Chest Wo [id number] 12:30:00CT Chest Wo Contrast (06/05/2017 12:30 PM) Specimen Performing Laboratory [facility] [address] [address] Impressions Groundglass opacities and bronchiectasis primarily involving the right middle lobe, lingula, and both lung bases favored to represent scarring from prior airspace disease at these locations. Narrative EXAM: CT Chest without contrast DATE: 06/05/2017 12:30 PM DICTATED: 06/05/2017 12:33 PM INTERPRETATION LOCATION: [facility] CLINICAL INDICATION: 36 years old Male with Abnormal CXR- per radiology request to classify bronchiectasis seen on cxr- COMPARISON: 10/12/2015. TECHNIQUE: A spiral CT scan was obtained without IV contrast from the thoracic inlet through the hemidiaphragms. Images were reconstructed in the axial plane.Coronal and sagittal reformatted images of the chest were also provided for further evaluation of the lung parenchyma. FINDINGS: AIRWAYS, LUNGS, PLEURA: Groundglass opacities and bronchiectasis primarily involving the right middle lobe, lingula, and lung bases. Additional more focal linear opacities at the lateral and posterior right base. Findings likely represent scarring from prior airspace disease in these locations as was demonstrated on 10/12/2015 CT chest. MEDIASTINUM: Cardiomegaly. Dilated central pulmonary arteries. No pericardial effusion. Normal caliber thoracic aorta. No lymphadenopathy. IMAGED ABDOMEN: Autoinfarcted spleen. Left renal cyst. SOFT TISSUES: Bilateral gynecomastia. BONES: Diffuse heterogeneity to the osseous structures, likely related to sickle cell disease. Procedure Note Interface, Rad Results In - 06/05/2017 1:17 PM EST EXAM: CT Chest without contrast DATE: 06/05/2017 12:30 PM DICTATED: 06/05/2017 12:33 PM INTERPRETATION LOCATION: [facility] CLINICAL INDICATION: 36 years old Male with Abnormal CXR-per radiology request to classify bronchiectasis seen on cxr- COMPARISON: 10/12/2015. TECHNIQUE: A spiral CT scan was obtained without IV contrast from the thoracic inlet through the hemidiaphragms. Images were reconstructed in the axial plane. Coronal and sagittal reformatted images of the chest were also provided for further evaluation of the lung parenchyma. FINDINGS: AIRWAYS, LUNGS, PLEURA: Groundglass opacities and bronchiectasis primarily involving the right middle lobe, lingula, and lung bases. Additional more focal linear opacities at the lateral and posterior right base. Findings likely represent scarring from prior airspace disease in these locations as was demonstrated on 10/12/2015 CT chest. MEDIASTINUM: Cardiomegaly. Dilated central pulmonary arteries. No pericardial effusion. Normal caliber thoracic aorta. No lymphadenopathy. IMAGED ABDOMEN: Autoinfarctedspleen. Left renal cyst. SOFT TISSUES: Bilateral gynecomastia. BONES: Diffuse heterogeneity to the osseous structures, likely related to sickle cell disease. IMPRESSION: Groundglass opacities and bronchiectasis primarily involving the right middle lobe, lingula, and both lung bases favored to represent scarring from prior airspace disease at these locations.ECG 12 [id number] 09:06:13 Test Item Value Reference Range Comments EKG Systolic BP (test code = EKG Systolic BP) EKG Diastolic BP (test code = EKG Diastolic BP) EKG Ventricular Rate (test code = EKG Ventricular 55 BPM Rate) EKG Atrial Rate (test code = EKG Atrial Rate) 55 BPM EKG P-R Interval (test code = EKG P-R Interval) 168 ms EKG QRS Duration (test code = EKG QRS Duration) 104 ms EKG Q-T Interval (test code = EKG Q-T Interval) 414 ms EKG QTC Calculation (test code = EKG QTC 396 ms Calculation) EKG Calculated P Sullivan (test code = EKG Calculated 67 degrees P Sullivan) EKG Calculated R Sullivan (test code = EKG Calculated 30 degrees R Sullivan) EKG Calculated T Sullivan (test code = EKG Calculated 33 degrees T Sullivan) XR Chest PA and [id number] 08:54:37XR Chest PA and Lateral (06/05/2017 8:54 AM) Specimen Performing Laboratory [facility] [address] [address] Impressions Bibasilar opacities with possible bronchiectasis. Recommend chest CT for further evaluation Narrative EXAM: CHEST TWO VIEW DATE: 06/05/2017 8:54 AM 06/05/2017 9:01 AM INTERPRETATION LOCATION: [facility] CLINICAL INDICATION: 36 years old Male with CHEST PAIN-- COMPARISON: 04/07/2017 TECHNIQUE: Upright PA and lateral views of the chest. FINDINGS: Left chest port terminates in the distal SVC. Mild cardiomegaly, unchanged. The lungs arewell inflated. Bilateral suprahilar pulmonary parenchymal opacities are noted, unchanged from previous study and may represent prominent pulmonary vessels Bilateral lower lobe pulmonary parenchymal opacities are increased. Question of bilateral basilar bronchiectasis. Procedure Note Interface, Rad Results In - 06/05/2017 9:22 AM EST EXAM: CHEST TWO VIEW DATE: 06/05/2017 8:54 AM DICTATED: 06/05/2017 9:01 AM INTERPRETATION LOCATION: [facility] CLINICAL INDICATION: 36 years old Male with CHEST PAIN-- COMPARISON: 04/07/2017 TECHNIQUE: Upright PA and lateral views of the chest. FINDINGS: Left chest port terminates in the distal SVC. Mild cardiomegaly, unchanged. The lungs are well inflated. Bilateral suprahilar pulmonary parenchymal opacities are noted, unchanged from previous study and may represent prominent pulmonary vessels Bilateral lower lobe pulmonary parenchymal opacities are increased. Question of bilateral basilar bronchiectasis. IMPRESSION: Bibasilar opacities withpossible bronchiectasis. Recommend chest CT for further evaluationComprehensive metabolic [id number] 07:47:00 Test Item Value Reference Range Comments Sodium (test code = Sodium) 142 mmol/L 135- 145 mmol/L Potassium (test code = Potassium) 4.0 mmol/L 3.5- 5.0 mmol/ L Chloride (test code = Chloride) 105 mmol/L 98- 107 mmol/L CO2 (test code = CO2) 26.0 mmol/L 22.0- 30.0 mmol/L BUN (test code = BUN) 10 mg/dL 7- 21 mg/dL Creatinine (test code = Creatinine) 0.73 mg/dL 0.70- 1.30 m g/dL BUN/Creatinine Ratio (test code = 14 BUN/Creatinine Ratio) GFR MDRD Non Af Amer (test code = GFR MDRD >=60 >=60 mL/min/1.73m2 Non Af Amer) GFR MDRD Af Amer (test code = GFR MDRD Af >=60 >=60 m L/min/1.73m2 Amer) Anion Gap (test code = Anion Gap) 11 mmol/L 9- 15 mmol/L Glucose (test code = Glucose) 75 mg/dL 65- 179 mg/dL Calcium (test code = Calcium) 8.8 mg/dL 8.5- 10.2 mg/dL Albumin (test code = Albumin) 4.1 g/dL 3.5- 5.0 g/dL Total Protein (test code = Total Protein) 8.0 g/dL 6.6- 8 .0 g/dL Total Bilirubin (test code = Total Bilirubin) 2.0 mg/dL 0. 0- 1.2 mg/dL AST (test code = AST) 45 U/L 19- 55 U/L ALT (test code = ALT) 23 U/L 19- 72 U/L Alkaline Phosphatase (test code = Alkaline 67 U/L 38- 1 26 U/L Phosphatase) [id number] 07:47:00 Test Item Value Reference Range Comments Reticulocyte Manual % (test code = 6.3 % 0.8- 2.5 % Reticulocyte Manual %) Absolute Manual Reticulocyte (test code = 180.2 10*9/L 27.0- 120.0 10*9/L Absolute Manual Reticulocyte) CBC w/ [id number] 07:47:00 Test Item Value Reference Range Comments Results Verified by Slide Scan (test code Slide Reviewed = Results Verified by Slide Scan) WBC (test code = WBC) 6.7 10*9/L 4.5- 11.0 10*9/L RBC (test code = RBC) 2.80 10*12/L 4.50- 5.90 10*12/L HGB (test code = HGB) 10.0 g/dL 13.5- 17.5 g/dL HCT (test code = HCT) 30.7 % 41.0- 53.0 % MCV (test code = MCV) 109.8 fL 80.0- 100.0 fL MCH (test code = MCH) 35.7 pg 26.0- 34.0 pg MCHC (test code = MCHC) 32.5 g/dL 31.0- 37.0 g/dL RDW (test code = RDW) 18.5 % 12.0- 15.0 % MPV (test code = MPV) 8.2 fL 7.0- 10.0 fL Platelet (test code = Platelet) 391 10*9/L 150- 440 10*9/L nRBC (test code = nRBC) 3 /100 WBCs <=4 /100 WBCs Variable HGB Concentration (test code = Slight Not Pres ent Variable HGB Concentration) Absolute Neutrophils (test code = Absolute 4.2 10*9/L 2.0- 7.5 10*9/L Neutrophils) Absolute Lymphocytes (test code = Absolute 1.7 10*9/L 1.5- 5.0 10*9/L Lymphocytes) Absolute Monocytes (test code = Absolute 0.2 10*9/L 0.2- 0. 8 10*9/L Monocytes) Absolute Eosinophils (test code = Absolute 0.2 10*9/L 0.0- 0.4 10*9/L Eosinophils) Absolute Basophils (test code = Absolute 0.0 10*9/L 0.0- 0. 1 10*9/L Basophils) Large Unstained Cells (test code = Large 5 % 0- 4 % Unstained Cells) Macrocytosis (test code = Macrocytosis) Marked Not Pres ent Anisocytosis (test code = Anisocytosis) Moderate Not Pres ent LDH, Lactate [id number] 07:47:00 Test Item Value Reference Range Comments LDH (test code = LDH) 853 U/L 338- 610 U/L Morphology [id number] 07:47:00 Test Item Value Reference Range Comments Smear Review Comments (test code = Smear Review See Comment Undefined Comments) Polychromasia (test code = Polychromasia) Moderate Not Pr esent Target Cells (test code = Target Cells) Moderate Not Pres ent Poikilocytosis (test code = Poikilocytosis) Moderate Not Present CBC w/ [id number] 07:47:00CBC w/ Differential (06/05/2017 7:47 AM) Specimen Performing Laboratory Blood [facility] Narrative The following orders were created for panel order CBC w/ Differential. Procedure Abnormality Status --------- ------ CBC w/ Differential[[id number]] AbnormalFinal result Morphology Review[[id number]] AbnormalFinal result Please view results for these tests on the individual orders.[id number] 08:53:00 Test Item Value Reference Range Comments Reticulocyte Manual % (test code = 8.1 % 0.8- 2.5 % Reticulocyte Manual %) Absolute Manual Reticulocyte (test code = 220.3 10*9/L 27.0- 120.0 10*9/L Absolute Manual Reticulocyte) Comprehensive Metabolic [id number] 08:53:00 Test Item Value Reference Range Comments Sodium (test code = Sodium) 144 mmol/L 135- 145 mmol/L Potassium (test code = Potassium) 3.1 mmol/L 3.5- 5.0 mmol/ L Chloride (test code = Chloride) 112 mmol/L 98- 107 mmol/L CO2 (test code = CO2) 21.0 mmol/L 22.0- 30.0 mmol/L BUN (test code = BUN) 4 mg/dL 7- 21 mg/dL Creatinine (test code = Creatinine) 0.60 mg/dL 0.70- 1.30 m g/dL BUN/Creatinine Ratio (test code = 7 BUN/Creatinine Ratio) GFR MDRD Non Af Amer (test code = GFR MDRD >=60 >=60 mL/min/1.73m2 Non Af Amer) GFR MDRD Af Amer (test code = GFR MDRD Af >=60 >=60 m L/min/1.73m2 Amer) Anion Gap (test code = Anion Gap) 11 mmol/L 9- 15 mmol/L Glucose (test code = Glucose) 68 mg/dL 65- 179 mg/dL Calcium (test code = Calcium) 8.0 mg/dL 8.5- 10.2 mg/dL Albumin (test code = Albumin) 3.5 g/dL 3.5- 5.0 g/dL Total Protein (test code = Total Protein) 7.1 g/dL 6.6- 8 .0 g/dL Total Bilirubin (test code = Total Bilirubin) 1.5 mg/dL 0. 0- 1.2 mg/dL AST (test code = AST) 22 U/L 19- 55 U/L ALT (test code = ALT) 30 U/L 19- 72 U/L Alkaline Phosphatase (test code = Alkaline 49 U/L 38- 1 26 U/L Phosphatase) CBC w/ [id number] 08:53:00 Test Item Value Reference Range Comments WBC (test code = WBC) 6.0 10*9/L 4.5- 11.0 10*9/L RBC (test code = RBC) 2.66 10*12/L 4.50- 5.90 10*12/L HGB (test code = HGB) 9.3 g/dL 13.5- 17.5 g/dL HCT (test code = HCT) 28.8 % 41.0- 53.0 % MCV (test code = MCV) 108.4 fL 80.0- 100.0 fL MCH (test code = MCH) 34.8 pg 26.0- 34.0 pg MCHC (test code = MCHC) 32.1 g/dL 31.0- 37.0 g/dL RDW (test code = RDW) 19.8 % 12.0- 15.0 % MPV (test code = MPV) 7.6 fL 7.0- 10.0 fL Platelet (test code = Platelet) 419 10*9/L 150- 440 10*9/L nRBC (test code = nRBC) 3 /100 WBCs <=4 /100 WBCs Variable HGB Concentration (test code = Moderate Not Pres ent Variable HGB Concentration) Absolute Neutrophils (test code = Absolute 3.7 10*9/L 2.0- 7.5 10*9/L Neutrophils) Absolute Lymphocytes (test code = Absolute 1.8 10*9/L 1.5- 5.0 10*9/L Lymphocytes) Absolute Monocytes (test code = Absolute 0.2 10*9/L 0.2- 0. 8 10*9/L Monocytes) Absolute Eosinophils (test code = Absolute 0.1 10*9/L 0.0- 0.4 10*9/L Eosinophils) Absolute Basophils (test code = Absolute 0.0 10*9/L 0.0- 0. 1 10*9/L Basophils) Large Unstained Cells (test code = Large 3 % 0- 4 % Unstained Cells) Macrocytosis (test code = Macrocytosis) Marked Not Pres ent Anisocytosis (test code = Anisocytosis) Moderate Not Pres ent Hyperchromasia (test code = Hyperchromasia) Slight Not Present Hypochromasia (test code = Hypochromasia) Slight Not Pr esent Troponin [id number] 08:53:00 Test Item Value Reference Range Comments Troponin I (test code = Troponin I) <0.034 <0.034 ng/mL Morphology [id number] 08:53:00 Test Item Value Reference Range Comments Smear Review Comments (test code = Smear Review See Comment Undefined Comments) Polychromasia (test code = Polychromasia) Slight Not Pr esent Poikilocytosis (test code = Poikilocytosis) Moderate Not Present CBC w/ [id number] 08:53:00CBC w/ Differential (04/07/2017 8:53 AM) Specimen Performing Laboratory Blood [facility] Narrative The following orders were created for panel order CBC w/ Differential. Procedure Abnormality Status --------- ------ CBC w/ Differential[[id number]] AbnormalFinal result Morphology Review[[id number]] AbnormalFinal result Please view results for these tests on the individual orders.[id number] 01:53:00 Test Item Value Reference Range Comments WBC (test code = WBC) 6.1 10*9/L 4.5-11.0 10*9/L RBC (test code = RBC) 2.91 10*12/L 4.50-5.90 10*12/L HGB (test code = HGB) 10.0 g/dL 13.5-17.5 g/dL HCT (test code = HCT) 29.6 % 41.0-53.0 % MCV (test code = MCV) 101.7 fL 80.0-100.0 fL MCH (test code = MCH) 34.3 pg 26.0-34.0 pg MCHC (test code = MCHC) 33.7 g/dL 31.0-37.0 g/dL RDW (test code = RDW) 18.5 % 12.0-15.0 % MPV (test code = MPV) 7.5 fL 7.0-10.0 fL Platelet (test code = Platelet) 265 10*9/L 150-440 10*9/L nRBC (test code = nRBC) 2 /100 WBCs <=4 /100 WBCs Results Verified by Slide Scan (test code = Slide Reviewed Results Verified by Slide Scan) Basic Metabolic [id number] 01:53:00 Test Item Value Reference Range Comments Sodium (test code = Sodium) 137 mmol/L 135-145 mmol/L Potassium (test code = Potassium) 4.1 mmol/L 3.5-5.0 mmol/L Chloride (test code = Chloride) 98 mmol/L 98-107 mmol/L CO2 (test code = CO2) 31.0 mmol/L 22.0-30.0 mmol/L BUN (test code = BUN) 7 mg/dL 7-21 mg/dL Creatinine (test code = Creatinine) 0.62 mg/dL 0.70-1.30 mg /dL BUN/Creatinine Ratio (test code = 11 BUN/Creatinine Ratio) GFR MDRD Non Af Amer (test code = GFR MDRD >=60 >=60 mL/min/1.73m2 Non Af Amer) GFR MDRD Af Amer (test code = GFR MDRD Af >=60 >=60 m L/min/1.73m2 Amer) Anion Gap (test code = Anion Gap) 8 mmol/L 9-15 mmol/L Glucose (test code = Glucose) 92 mg/dL 65-179 mg/dL Calcium (test code = Calcium) 8.8 mg/dL 8.5-10.2 mg/dL Lactate [id number] 01:53:00 Test Item Value Reference Range Comments LDH (test code = LDH) 938 U/L 338-610 U/L VRE [id number] 10:46:00 Test Item Value Reference Range Comments VRE Screen (test code = VRE Screen) NOT DETECTED Basic metabolic [id number] 04:31:00 Test Item Value Reference Range Comments Sodium (test code = Sodium) 140 mmol/L 135-145 mmol/L Potassium (test code = Potassium) 3.9 mmol/L 3.5-5.0 mmol/L Chloride (test code = Chloride) 103 mmol/L 98-107 mmol/L CO2 (test code = CO2) 27.0 mmol/L 22.0-30.0 mmol/L BUN (test code = BUN) 6 mg/dL 7-21 mg/dL Creatinine (test code = Creatinine) 0.62 mg/dL 0.70-1.30 mg /dL BUN/Creatinine Ratio (test code = 10 BUN/Creatinine Ratio) GFR MDRD Non Af Amer (test code = GFR MDRD >=60 >=60 mL/min/1.73m2 Non Af Amer) GFR MDRD Af Amer (test code = GFR MDRD Af >=60 >=60 m L/min/1.73m2 Amer) Anion Gap (test code = Anion Gap) 10 mmol/L 9-15 mmol/L Glucose (test code = Glucose) 118 mg/dL 65-179 mg/dL Calcium (test code = Calcium) 8.6 mg/dL 8.5-10.2 mg/dL CBC w/ [id number] 04:31:00 Test Item Value Reference Range Comments WBC (test code = WBC) 7.9 10*9/L 4.5-11.0 10*9/L RBC (test code = RBC) 2.78 10*12/L 4.50-5.90 10*12/L HGB (test code = HGB) 9.6 g/dL 13.5-17.5 g/dL HCT (test code = HCT) 29.3 % 41.0-53.0 % MCV (test code = MCV) 105.4 fL 80.0-100.0 fL MCH (test code = MCH) 34.6 pg 26.0-34.0 pg MCHC (test code = MCHC) 32.9 g/dL 31.0-37.0 g/dL RDW (test code = RDW) 19.2 % 12.0-15.0 % MPV (test code = MPV) 7.6 fL 7.0-10.0 fL Platelet (test code = Platelet) 255 10*9/L 150-440 10*9/L nRBC (test code = nRBC) 3 /100 WBCs <=4 /100 WBCs Variable HGB Concentration (test code = Moderate Not Pres ent Variable HGB Concentration) Absolute Neutrophils (test code = Absolute 4.7 10*9/L 2.0-7 .5 10*9/L Neutrophils) Absolute Lymphocytes (test code = Absolute 2.3 10*9/L 1.5-5 .0 10*9/L Lymphocytes) Absolute Monocytes (test code = Absolute 0.5 10*9/L 0.2-0.8 10*9/L Monocytes) Absolute Eosinophils (test code = Absolute 0.1 10*9/L 0.0-0 .4 10*9/L Eosinophils) Absolute Basophils (test code = Absolute 0.0 10*9/L 0.0-0.1 10*9/L Basophils) Large Unstained Cells (test code = Large 3 % 0-4 % Unstained Cells) Macrocytosis (test code = Macrocytosis) Marked Not Pres ent Anisocytosis (test code = Anisocytosis) Moderate Not Pres ent Hyperchromasia (test code = Hyperchromasia) Slight Not Present Hypochromasia (test code = Hypochromasia) Slight Not Pr esent Morphology [id number] 04:31:00 Test Item Value Reference Range Comments Smear Review Comments (test code = Smear Review See Comment Undefined Comments) Polychromasia (test code = Polychromasia) Slight Not Pr esent Target Cells (test code = Target Cells) Moderate Not Pres ent Toxic Vacuolation (test code = Toxic Present Not Present Vacuolation) Poikilocytosis (test code = Poikilocytosis) Moderate Not Present CBC w/ [id number] 04:31:00CBC w/ Differential (09/27/2016 4:31 AM) Specimen Blood Narrative The following orders were created for panel order CBC w/ Differential. Procedure? Abnormality? Status? ---------? ------? CBC w/ Differential[[id number]]? Abnormal?Final result? Morphology Review[[id number]]? Abnormal?Final result? Please view results for these tests on the individual orders.XR Chest PA and Lateral 2016-09-26 20:13:50XR Chest PA and Lateral (09/26/2016 8:13 PM) Narrative EXAM: CHEST TWO VIEW DATE: 09/26/2016 8:13 PM DICTATED: 09/26/2016 8:43 PM INTERPRETATION LOCATION: [facility] CLINICAL INDICATION: 35 years old Male with SHORTNESS OF BREATH--? COMPARISON: CXR 10/10/2015 TECHNIQUE:PA and lateral views of the chest. FINDINGS: Left implantable venous access device, currently accessed, tip in the mid/lower SVC unchanged. Low lung volumes. Bibasilar atelectasis. Cardiomegaly unchanged. Prominent pulmonary vasculature. No pleural effusion or pneumothorax. ? IMPRESSION: Hypoinflation with pulmonary vascular congestion bibasilar streaky opacities which are most likely atelectasis. Procedure Note Interface, Rad Results In - Tammy Sep 27, 2016 7:22 AM EDT EXAM: CHEST TWO VIEW DATE: 09/26/2016 8:13 PM DICTATED: 09/26/2016 8:43 PM INTERPRETATION LOCATION: [facility] CLINICAL INDICATION: 35 years old Male with SHORTNESS OF BREATH-- COMPARISON: CXR 10/10/2015 TECHNIQUE:PA and lateral views of the chest. FINDINGS: Left implantable venous access device, currently accessed, tip in the mid/lower SVC unchanged. Low lung volumes. Bibasilar atelectasis. Cardiomegaly unchanged. Pro minent pulmonary vasculature. No pleural effusion or pneumothorax. IMPRESSION: Hypoinflation with pulmonary vascular congestion bibasilar streaky opacities which are most likely atelectasis.Comprehensive Metabolic [id number] 18:44:00 Test Item Value Reference Range Comments Sodium (test code = Sodium) 139 mmol/L 135-145 mmol/L Potassium (test code = Potassium) 4.1 mmol/L 3.5-5.0 mmol/L Chloride (test code = Chloride) 102 mmol/L 98-107 mmol/L CO2 (test code = CO2) 25.0 mmol/L 22.0-30.0 mmol/L BUN (test code = BUN) 9 mg/dL 7-21 mg/dL Creatinine (test code = Creatinine) 0.64 mg/dL 0.70-1.30 mg /dL BUN/Creatinine Ratio (test code = 14 BUN/Creatinine Ratio) GFR MDRD Non Af Amer (test code = GFR MDRD >=60 >=60 mL/min/1.73m2 Non Af Amer) GFR MDRD Af Amer (test code = GFR MDRD Af >=60 >=60 m L/min/1.73m2 Amer) Anion Gap (test code = Anion Gap) 12 mmol/L 9-15 mmol/L Glucose (test code = Glucose) 83 mg/dL 65-179 mg/dL Calcium (test code = Calcium) 8.8 mg/dL 8.5-10.2 mg/dL Albumin (test code = Albumin) 4.4 g/dL 3.5-5.0 g/dL Total Protein (test code = Total Protein) 8.5 g/dL 6.6-8. 0 g/dL Total Bilirubin (test code = Total Bilirubin) 2.2 mg/dL 0. 0-1.2 mg/dL AST (test code = AST) 41 U/L 19-55 U/L ALT (test code = ALT) 32 U/L 19-72 U/L Alkaline Phosphatase (test code = Alkaline 69 U/L 38-12 6 U/L Phosphatase) LDH, Lactate [id number] 18:44:00 Test Item Value Reference Range Comments LDH (test code = LDH) 1054 U/L 338-610 U/L [id number] 18:44:00 Test Item Value Reference Range Comments Reticulocyte Manual % (test code = 8.2 % 0.8-2.5 % Reticulocyte Manual %) Absolute Manual Reticulocyte (test code = 246.0 10*9/L 27.0-1 20.0 10*9/L Absolute Manual Reticulocyte) CBC w/ [id number] 18:44:00 Test Item Value Reference Range Comments WBC (test code = WBC) 10.2 10*9/L 4.5-11.0 10*9/L RBC (test code = RBC) 3.05 10*12/L 4.50-5.90 10*12/L HGB (test code = HGB) 10.7 g/dL 13.5-17.5 g/dL HCT (test code = HCT) 32.4 % 41.0-53.0 % MCV (test code = MCV) 106.2 fL 80.0-100.0 fL MCH (test code = MCH) 35.1 pg 26.0-34.0 pg MCHC (test code = MCHC) 33.1 g/dL 31.0-37.0 g/dL RDW (test code = RDW) 19.7 % 12.0-15.0 % MPV (test code = MPV) 7.2 fL 7.0-10.0 fL Platelet (test code = Platelet) 286 10*9/L 150-440 10*9/L nRBC (test code = nRBC) 3 /100 WBCs <=4 /100 WBCs Variable HGB Concentration (test code = Moderate Not Pres ent Variable HGB Concentration) Absolute Neutrophils (test code = Absolute 6.6 10*9/L 2.0-7 .5 10*9/L Neutrophils) Absolute Lymphocytes (test code = Absolute 2.5 10*9/L 1.5-5 .0 10*9/L Lymphocytes) Absolute Monocytes (test code = Absolute 0.6 10*9/L 0.2-0.8 10*9/L Monocytes) Absolute Eosinophils (test code = Absolute 0.1 10*9/L 0.0-0 .4 10*9/L Eosinophils) Absolute Basophils (test code = Absolute 0.0 10*9/L 0.0-0.1 10*9/L Basophils) Large Unstained Cells (test code = Large 4 % 0-4 % Unstained Cells) Macrocytosis (test code = Macrocytosis) Marked Not Pres ent Anisocytosis (test code = Anisocytosis) Moderate Not Pres ent Hyperchromasia (test code = Hyperchromasia) Slight Not Present Hypochromasia (test code = Hypochromasia) Slight Not Pr esent Morphology [id number] 18:44:00 Test Item Value Reference Range Comments Smear Review Comments (test code = Smear Review See Comment Undefined Comments) Polychromasia (test code = Polychromasia) Moderate Not Pr esent Target Cells (test code = Target Cells) Moderate Not Pres ent Poikilocytosis (test code = Poikilocytosis) Moderate Not Present CBC w/ [id number] 18:44:00CBC w/ Differential (09/26/2016 6:44 PM) Specimen Blood Narrative The following orders were created for panel order CBC w/ Differential. Procedure? Abnormality? Status? ---------? ------? CBC w/ Differential[[id number]]? Abnormal?Final result? Morphology Review[[id number]]? Abnormal?Final result? Please view results for these tests on the individual orders.[id number] 09:43:00 Test Item Value Reference Range Comments WBC (test code = WBC) 6.0 10*9/L 4.5-11.0 10*9/L RBC (test code = RBC) 2.80 10*12/L 4.50-5.90 10*12/L HGB (test code = HGB) 8.7 g/dL 13.5-17.5 g/dL HCT (test code = HCT) 26.5 % 41.0-53.0 % MCV (test code = MCV) 94.8 fL 80.0-100.0 fL MCH (test code = MCH) 31.2 pg 26.0-34.0 pg MCHC (test code = MCHC) 32.9 g/dL 31.0-37.0 g/dL RDW (test code = RDW) 20.5 % 12.0-15.0 % MPV (test code = MPV) 7.1 fL 7.0-10.0 fL Platelet (test code = Platelet) 465 10*9/L 150-440 10*9/L nRBC (test code = nRBC) 4 /100 WBCs <=4 /100 WBCs Results Verified by Slide Scan (test code = Slide Reviewed Results Verified by Slide Scan) [id number] 10:28:00 Test Item Value Reference Range Comments HGB (test code = HGB) 8.6 g/dL 13.5-17.5 g/dL [id number] 06:31:00 Test Item Value Reference Range Comments WBC (test code = WBC) 4.8 10*9/L 4.5-11.0 10*9/L RBC (test code = RBC) 2.89 10*12/L 4.50-5.90 10*12/L HGB (test code = HGB) 9.1 g/dL 13.5-17.5 g/dL HCT (test code = HCT) 27.1 % 41.0-53.0 % MCV (test code = MCV) 93.8 fL 80.0-100.0 fL MCH (test code = MCH) 31.4 pg 26.0-34.0 pg MCHC (test code = MCHC) 33.5 g/dL 31.0-37.0 g/dL RDW (test code = RDW) 19.0 % 12.0-15.0 % MPV (test code = MPV) 8.2 fL 7.0-10.0 fL Platelet (test code = Platelet) 435 10*9/L 150-440 10*9/L Comprehensive Metabolic [id number] 06:31:00 Test Item Value Reference Range Comments Sodium (test code = Sodium) 142 mmol/L 135-145 mmol/L Potassium (test code = Potassium) 4.2 mmol/L 3.5-5.0 mmol/L Chloride (test code = Chloride) 99 mmol/L 98-107 mmol/L CO2 (test code = CO2) 33.0 mmol/L 22.0-30.0 mmol/L BUN (test code = BUN) 4 mg/dL 7-21 mg/dL Creatinine (test code = Creatinine) 0.55 mg/dL 0.70-1.30 mg /dL BUN/Creatinine Ratio (test code = 7 BUN/Creatinine Ratio) GFR MDRD Non Af Amer (test code = GFR MDRD >60 >=60 mL/min/1.73m2 Non Af Amer) GFR MDRD Af Amer (test code = GFR MDRD Af >60 >=60 m L/min/1.73m2 Amer) Anion Gap (test code = Anion Gap) 10 mmol/L 9-15 mmol/L Glucose (test code = Glucose) 93 mg/dL 65-179 mg/dL Calcium (test code = Calcium) 8.6 mg/dL 8.5-10.2 mg/dL Albumin (test code = Albumin) 3.4 g/dL 3.5-5.0 g/dL Total Protein (test code = Total Protein) 7.1 g/dL 6.6-8. 0 g/dL Total Bilirubin (test code = Total Bilirubin) 0.7 mg/dL 0. 0-1.2 mg/dL AST (test code = AST) 33 U/L 19-55 U/L ALT (test code = ALT) 27 U/L 19-72 U/L Alkaline Phosphatase (test code = Alkaline 76 U/L 38-12 6 U/L Phosphatase) [id number] 05:12:00 Test Item Value Reference Range Comments WBC (test code = WBC) 5.3 10*9/L 4.5-11.0 10*9/L RBC (test code = RBC) 2.64 10*12/L 4.50-5.90 10*12/L HGB (test code = HGB) 8.5 g/dL 13.5-17.5 g/dL HCT (test code = HCT) 25.3 % 41.0-53.0 % MCV (test code = MCV) 95.6 fL 80.0-100.0 fL MCH (test code = MCH) 32.2 pg 26.0-34.0 pg MCHC (test code = MCHC) 33.6 g/dL 31.0-37.0 g/dL RDW (test code = RDW) 19.0 % 12.0-15.0 % MPV (test code = MPV) 7.3 fL 7.0-10.0 fL Platelet (test code = Platelet) 349 10*9/L 150-440 10*9/L nRBC (test code = nRBC) 1 /100 WBCs <=4 /100 WBCs Basic Metabolic [id number] 09:30:00 Test Item Value Reference Range Comments Sodium (test code = Sodium) 137 mmol/L 135-145 mmol/L Potassium (test code = Potassium) 4.0 mmol/L 3.5-5.0 mmol/L Chloride (test code = Chloride) 95 mmol/L 98-107 mmol/L CO2 (test code = CO2) 31.0 mmol/L 22.0-30.0 mmol/L BUN (test code = BUN) 5 mg/dL 7-21 mg/dL Creatinine (test code = Creatinine) 0.55 mg/dL 0.70-1.30 mg /dL BUN/Creatinine Ratio (test code = 9 BUN/Creatinine Ratio) GFR MDRD Non Af Amer (test code = GFR MDRD >60 >=60 mL/min/1.73m2 Non Af Amer) GFR MDRD Af Amer (test code = GFR MDRD Af >60 >=60 m L/min/1.73m2 Amer) Anion Gap (test code = Anion Gap) 11 mmol/L 9-15 mmol/L Glucose (test code = Glucose) 108 mg/dL 65-179 mg/dL Calcium (test code = Calcium) 8.3 mg/dL 8.5-10.2 mg/dL Bilirubin, [id number] 09:30:00 Test Item Value Reference Range Comments Total Bilirubin (test code = Total Bilirubin) 0.9 mg/dL 0. 0-1.2 mg/dL [id number] 09:30:00 Test Item Value Reference Range Comments WBC (test code = WBC) 6.1 10*9/L 4.5-11.0 10*9/L RBC (test code = RBC) 2.77 10*12/L 4.50-5.90 10*12/L HGB (test code = HGB) 9.0 g/dL 13.5-17.5 g/dL HCT (test code = HCT) 26.4 % 41.0-53.0 % MCV (test code = MCV) 95.5 fL 80.0-100.0 fL MCH (test code = MCH) 32.5 pg 26.0-34.0 pg MCHC (test code = MCHC) 34.0 g/dL 31.0-37.0 g/dL RDW (test code = RDW) 18.5 % 12.0-15.0 % MPV (test code = MPV) 7.2 fL 7.0-10.0 fL Platelet (test code = Platelet) 361 10*9/L 150-440 10*9/L Hemoglobin/Thalassemia [id number] 09:30:00 Test Item Value Reference Range Comments Hemoglobins Present (test code = S,A2,F A,A2,F Hemoglobins Present) Hgb S Quant (test code = Hgb S 84.3 % Quant) Hgb A2 Quant (test code = Hgb A2 5.0 % 1.5-3.5 % Quant) Hgb F Quant (test code = Hgb F 10.7 % <=1.9 % Quant) Hemoglobin Interpretation (test COMPATIBLE WITH SICKLE CELL code = Hemoglobin DISEASE. Interpretation) Lactate [id number] 09:30:00 Test Item Value Reference Range Comments LDH (test code = LDH) 796 U/L 338-610 U/L [id number] 09:30:00 Test Item Value Reference Range Comments Reticulocyte Manual % (test code = 3.2 % 0.8-2.5 % Reticulocyte Manual %) Absolute Manual Reticulocyte (test code = 88.6 10*9/L 27.0-1 20.0 10*9/L Absolute Manual Reticulocyte) [id number] 05:29:00 Test Item Value Reference Range Comments WBC (test code = WBC) 8.7 10*9/L 4.5-11.0 10*9/L RBC (test code = RBC) 2.90 10*12/L 4.50-5.90 10*12/L HGB (test code = HGB) 9.6 g/dL 13.5-17.5 g/dL HCT (test code = HCT) 28.8 % 41.0-53.0 % MCV (test code = MCV) 99.4 fL 80.0-100.0 fL MCH (test code = MCH) 33.2 pg 26.0-34.0 pg MCHC (test code = MCHC) 33.4 g/dL 31.0-37.0 g/dL RDW (test code = RDW) 18.4 % 12.0-15.0 % MPV (test code = MPV) 7.3 fL 7.0-10.0 fL Platelet (test code = Platelet) 411 10*9/L 150-440 10*9/L Basic Metabolic [id number] 05:29:00 Test Item Value Reference Range Comments Sodium (test code = Sodium) 141 mmol/L 135-145 mmol/L Potassium (test code = Potassium) 3.8 mmol/L 3.5-5.0 mmol/L Chloride (test code = Chloride) 102 mmol/L 98-107 mmol/L CO2 (test code = CO2) 27.0 mmol/L 22.0-30.0 mmol/L BUN (test code = BUN) 7 mg/dL 7-21 mg/dL Creatinine (test code = Creatinine) 0.51 mg/dL 0.70-1.30 mg /dL BUN/Creatinine Ratio (test code = 14 BUN/Creatinine Ratio) GFR MDRD Non Af Amer (test code = GFR MDRD >60 >=60 mL/min/1.73m2 Non Af Amer) GFR MDRD Af Amer (test code = GFR MDRD Af >60 >=60 m L/min/1.73m2 Amer) Anion Gap (test code = Anion Gap) 12 mmol/L 9-15 mmol/L Glucose (test code = Glucose) 105 mg/dL 65-179 mg/dL Calcium (test code = Calcium) 7.6 mg/dL 8.5-10.2 mg/dL CTA Chest [id number] 13:59:27CTA Chest Pe (10/12/2015 1:59 PM) Narrative EXAM: CTA Chest for Pulmonary Embolus DATE: 10/12/15 13:59:27 DICTATED: 10/12/15 14:24:40 INTERPRETATION LOCATION: [facility] CLINICAL INDICATION: 34 Year Old (M): sickle cell, pleuritic pain Patient refuse additional images suggested by rad. COMPARISON: Chest radiograph 10/10/2015 and prior. TECHNIQUE: A spiral CTA scan was obtained with IV contrast from the thoracic inlet through the hemidiaphragms. Images were reconstructed in the axial plane. Multiplanar reformatted and MIP images are provided for further evaluation of thepulmonary vasculature. FINDINGS: Of note, contrast bolus timing is suboptimal and evaluation of the subsegmental and some segmental pulmonary arteries is limited. A repeat bolus was recommended, however the patient refused to repeat the study. There are no filling defects within the central pulmonary arterial tree to suggest a central pulmonary embolism. The heart is mildly enlarged globally. There is no pericardial effusion. The thoracic aorta is normal in caliber. There are no pathologically enlarged thoracic lymph nodes. The central airways are patent. There is extensive bilateral lower lobe, right middle lobe, and lingula volume loss with airspace opacification and air bronchograms. There are trace pleural effusions bilaterally. There is also an element of consolidative airspace disease in the lingula. Bilateral mild gynecomastia. 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 There are no lytic or blastic osseous lesions. IMPRESSION: -- Limited examination, as above. No CTA evidence of central pulmonary embolism. -- Consolidative airspace opacity in the lingulamay represent a site infection or sequela of acute chest syndrome. -- There is extensive bilateral lower lobe and right middle lobe volume loss. Procedure Note Interface, Rad Results In - SatOct 12, 2015 4:32 PM EDT EXAM: CTA Chest for Pulmonary Embolus DATE: 10/12/15 13:59:27 DICTATED: 10/12/15 14:24:40 INTERPRETATION LOCATION: [facility] CLINICAL INDICATION: 34 Year Old (M): sickle cell, pleuritic pain Patient refuse additional images suggested by rad. COMPARISON: Chest radiograph 10/10/2015 and prior. TECHNIQUE: A spiral CTA scan was obtained with IV contrast from the thoracic inlet through the hemidiaphragms. Images were reconstructed in the axial plane. Multiplanar reformatted and MIP images are provided for further evaluation of the pulmonary vasculature. FINDINGS:Of note, contrast bolus timing is suboptimal and evaluation of the subsegmental and some segmental pulmonary arteries is limited. A repeat bolus was recommended, however the patient refused to repeat the study. There are no filling defects within the central pulmonary arterial tree to suggest a central pulmonary embolism. The heart is mildly enlarged globally. There is no pericardial effusion. The tho racic aorta is normal in caliber. There are no pathologically enlarged thoracic lymph nodes. The central airways are patent. There is extensive bilateral lower lobe, right middle lobe, and lingula volume loss with airspace opacification and air bronchograms. There are trace pleural effusions bilaterally. There is also an element of consolidative airspace disease in the lingula. Bilateral mild gynecomastia. 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 There are no lytic or blastic osseous lesions. IMPRESSION: -- Limited examination, as above. No CTA evidence of central pulmonary embolism. -- Consolidative airspace opacity in the lingula may represent a site infection or sequela of acute chest syndrome. -- There is extensive bilateral lower lobe and right middle lobe volume loss.Urinalysis with Culture [id number] 05:25:00 Test Item Value Reference Range Comments Color, UA (test code = Color, UA) Yellow Clarity, UA (test code = Clarity, UA) Clear pH, UA (test code = pH, UA) 6.0 5.0-9.0 Leukocyte Esterase, UA (test code = Leukocyte Negative Ne gative Esterase, UA) Nitrite, UA (test code = Nitrite, UA) Negative Negative Protein, UA (test code = Protein, UA) Negative Negative Glucose, UA (test code = Glucose, UA) Negative Negative Bilirubin, UA (test code = Bilirubin, UA) Negative Negati ve RBC, UA (test code = RBC, UA) <1 <3 /HPF WBC, UA (test code = WBC, UA) <1 <2 /HPF Squam Epithel, UA (test code = Squam Epithel, UA) <1 0-5 /HPF Bacteria, UA (test code = Bacteria, UA) None Seen None See n /HPF Specific Russell, UA (test code = Specific 1.005 1.003 -1.030 Russell, UA) Ketones, UA (test code = Ketones, UA) Negative Negative Urobilinogen, UA (test code = Urobilinogen, UA) 0.2 mg/dL 0.2 mg/dL Blood, UA (test code = Blood, UA) Negative Negative Mucus, UA (test code = Mucus, UA) Rare None Seen /HPF [id number] 05:24:00 Test Item Value Reference Range Comments WBC (test code = WBC) 10.2 10*9/L 4.5-11.0 10*9/L RBC (test code = RBC) 2.93 10*12/L 4.50-5.90 10*12/L HGB (test code = HGB) 9.7 g/dL 13.5-17.5 g/dL HCT (test code = HCT) 28.8 % 41.0-53.0 % MCV (test code = MCV) 98.4 fL 80.0-100.0 fL MCH (test code = MCH) 32.9 pg 26.0-34.0 pg MCHC (test code = MCHC) 33.5 g/dL 31.0-37.0 g/dL RDW (test code = RDW) 18.6 % 12.0-15.0 % MPV (test code = MPV) 7.2 fL 7.0-10.0 fL Platelet (test code = Platelet) 384 10*9/L 150-440 10*9/L nRBC (test code = nRBC) 2 /100 WBCs <=4 /100 WBCs Basic Metabolic [id number] 05:24:00 Test Item Value Reference Range Comments Sodium (test code = Sodium) 135 mmol/L 135-145 mmol/L Potassium (test code = Potassium) 3.7 mmol/L 3.5-5.0 mmol/L Chloride (test code = Chloride) 97 mmol/L 98-107 mmol/L CO2 (test code = CO2) 29.0 mmol/L 22.0-30.0 mmol/L BUN (test code = BUN) 5 mg/dL 7-21 mg/dL Creatinine (test code = Creatinine) 0.60 mg/dL 0.70-1.30 mg /dL BUN/Creatinine Ratio (test code = 8 BUN/Creatinine Ratio) GFR MDRD Non Af Amer (test code = GFR MDRD >60 >=60 mL/min/1.73m2 Non Af Amer) GFR MDRD Af Amer (test code = GFR MDRD Af >60 >=60 m L/min/1.73m2 Amer) Anion Gap (test code = Anion Gap) 9 mmol/L 9-15 mmol/L Glucose (test code = Glucose) 93 mg/dL 65-179 mg/dL Calcium (test code = Calcium) 8.7 mg/dL 8.5-10.2 mg/dL [id number] 05:24:00 Test Item Value Reference Range Comments Reticulocyte Manual % (test code = 4.8 % 0.8-2.5 % Reticulocyte Manual %) Absolute Manual Reticulocyte (test code = 148.3 10*9/L 27.0-1 20.0 10*9/L Absolute Manual Reticulocyte) Lactate [id number] 05:24:00 Test Item Value Reference Range Comments LDH (test code = LDH) 964 U/L 338-610 U/L Lactate [id number] 05:21:00 Test Item Value Reference Range Comments LDH (test code = LDH) 951 U/L 338-610 U/L [id number] 05:21:00 Test Item Value Reference Range Comments Reticulocyte Manual % (test code = 7.3 % 0.8-2.5 % Reticulocyte Manual %) Absolute Manual Reticulocyte (test code = 214.6 10*9/L 27.0-1 20.0 10*9/L Absolute Manual Reticulocyte) Bilirubin, [id number] 05:21:00 Test Item Value Reference Range Comments Total Bilirubin (test code = Total Bilirubin) 1.8 mg/dL 0. 0-1.2 mg/dL [id number] 05:21:00 Test Item Value Reference Range Comments WBC (test code = WBC) 12.8 10*9/L 4.5-11.0 10*9/L RBC (test code = RBC) 2.87 10*12/L 4.50-5.90 10*12/L HGB (test code = HGB) 9.5 g/dL 13.5-17.5 g/dL HCT (test code = HCT) 28.7 % 41.0-53.0 % MCV (test code = MCV) 100.1 fL 80.0-100.0 fL MCH (test code = MCH) 33.1 pg 26.0-34.0 pg MCHC (test code = MCHC) 33.1 g/dL 31.0-37.0 g/dL RDW (test code = RDW) 18.9 % 12.0-15.0 % MPV (test code = MPV) 7.5 fL 7.0-10.0 fL Platelet (test code = Platelet) 410 10*9/L 150-440 10*9/L nRBC (test code = nRBC) 2 /100 WBCs <=4 /100 WBCs Results Verified by Slide Scan (test code = Slide Reviewed Results Verified by Slide Scan) Basic metabolic [id number] 05:21:00 Test Item Value Reference Range Comments Sodium (test code = Sodium) 135 mmol/L 135-145 mmol/L Potassium (test code = Potassium) 3.8 mmol/L 3.5-5.0 mmol/L Chloride (test code = Chloride) 96 mmol/L 98-107 mmol/L CO2 (test code = CO2) 28.0 mmol/L 22.0-30.0 mmol/L BUN (test code = BUN) 4 mg/dL 7-21 mg/dL Creatinine (test code = Creatinine) 0.60 mg/dL 0.70-1.30 mg /dL BUN/Creatinine Ratio (test code = 7 BUN/Creatinine Ratio) GFR MDRD Non Af Amer (test code = GFR MDRD >60 >=60 mL/min/1.73m2 Non Af Amer) GFR MDRD Af Amer (test code = GFR MDRD Af >60 >=60 m L/min/1.73m2 Amer) Anion Gap (test code = Anion Gap) 11 mmol/L 9-15 mmol/L Glucose (test code = Glucose) 104 mg/dL 65-179 mg/dL Calcium (test code = Calcium) 8.8 mg/dL 8.5-10.2 mg/dL XR Chest PA and [id number] 18:28:49XR Chest PA and Lateral (10/10/2015 6:28 PM) Narrative EXAM: CHEST TWO VIEW DATE: 10/10/15 18:28:49 DICTATED: 10/10/15 18:56:39 INTERPRETATION LOCATION: [facility] CLINICAL INDICATION: 34 Year Old (M): Chest pain COMPARISON: 10/08/15. TECHNIQUE:Upright PA and lateral views of the chest. FINDINGS: Left chest wall Port-A-Cath unchanged in position. Left infraclavicular vascularcuff again noted. EKG leads overlie the chest and upper abdomen. Persistent, mild bronchial cuffing,most prominent at the bases. Mild bibasilar atelectasis- progressed vs consolidation. No pneumothorax or effusion. Unchanged cardiomegaly. Mediastinal contours remain normal. No acute osseous findings.IMPRESSION: Worsening bibasilar atelectasis vs consolidation. Procedure Note Interface, Rad Results In - Tue Oct 11, 2015 12:25 AM EDT EXAM: CHEST TWO VIEW DATE: 10/10/15 18:28:49 DICTATED: 10/10/15 18:56:39 INTERPRETATION LOCATION: [facility] CLINICAL INDICATION: 34 Year Old(M): Chest pain COMPARISON: 10/08/15. TECHNIQUE:Upright PA and lateral views of the chest. FINDINGS: Left chest wall Port-A-Cath unchanged in position. Left infraclavicular vascular cuff again noted. EKG leads overlie the chest and upper abdomen. Persistent, mild bronchial cuffing, most prominent at the bases. Mild bibasilar atelectasis- progressed vs consolidation. No pneumothorax or effusion. Unchanged cardiomegaly. Mediastinal contours remain normal. No acute osseous findings. IMPRESSION: Worsening bibasilar atelectasis vs consolidation.Basic Metabolic [id number] 17:13:00 Test Item Value Reference Range Comments Sodium (test code = Sodium) 143 mmol/L 135-145 mmol/L Potassium (test code = Potassium) 4.0 mmol/L 3.5-5.0 mmol/L Chloride (test code = Chloride) 102 mmol/L 98-107 mmol/L CO2 (test code = CO2) 29.0 mmol/L 22.0-30.0 mmol/L BUN (test code = BUN) 7 mg/dL 7-21 mg/dL Creatinine (test code = Creatinine) 0.62 mg/dL 0.70-1.30 mg /dL BUN/Creatinine Ratio (test code = 11 BUN/Creatinine Ratio) GFR MDRD Non Af Amer (test code = GFR MDRD >60 >=60 mL/min/1.73m2 Non Af Amer) GFR MDRD Af Amer (test code = GFR MDRD Af >60 >=60 m L/min/1.73m2 Amer) Anion Gap (test code = Anion Gap) 12 mmol/L 9-15 mmol/L Glucose (test code = Glucose) 80 mg/dL 65-179 mg/dL Calcium (test code = Calcium) 9.0 mg/dL 8.5-10.2 mg/dL Troponin [id number] 17:13:00 Test Item Value Reference Range Comments Troponin I (test code = Troponin I) <0.034 <0.034 ng/mL [id number] 17:13:00 Test Item Value Reference Range Comments Reticulocyte Manual % (test code = 7.5 % 0.8-2.5 % Reticulocyte Manual %) Absolute Manual Reticulocyte (test code = 225.0 10*9/L 27.0-1 20.0 10*9/L Absolute Manual Reticulocyte) CBC w/ [id number] 17:13:00 Test Item Value Reference Range Comments WBC (test code = WBC) 9.6 10*9/L 4.5-11.0 10*9/L RBC (test code = RBC) 3.08 10*12/L 4.50-5.90 10*12/L HGB (test code = HGB) 10.0 g/dL 13.5-17.5 g/dL HCT (test code = HCT) 30.4 % 41.0-53.0 % MCV (test code = MCV) 98.9 fL 80.0-100.0 fL MCH (test code = MCH) 32.3 pg 26.0-34.0 pg MCHC (test code = MCHC) 32.7 g/dL 31.0-37.0 g/dL RDW (test code = RDW) 19.7 % 12.0-15.0 % MPV (test code = MPV) 7.5 fL 7.0-10.0 fL Platelet (test code = Platelet) 462 10*9/L 150-440 10*9/L nRBC (test code = nRBC) 2 /100 WBCs <=4 /100 WBCs Variable HGB Concentration (test code = Moderate Not Pres ent Variable HGB Concentration) Absolute Neutrophils (test code = Absolute 7.1 10*9/L 2.0-7 .5 10*9/L Neutrophils) Absolute Lymphocytes (test code = Absolute 1.8 10*9/L 1.5-5 .0 10*9/L Lymphocytes) Absolute Monocytes (test code = Absolute 0.4 10*9/L 0.2-0.8 10*9/L Monocytes) Absolute Eosinophils (test code = Absolute 0.1 10*9/L 0.0-0 .4 10*9/L Eosinophils) Absolute Basophils (test code = Absolute 0.0 10*9/L 0.0-0.1 10*9/L Basophils) Large Unstained Cells (test code = Large 2 % 0-4 % Unstained Cells) Macrocytosis (test code = Macrocytosis) Marked Not Pres ent Anisocytosis (test code = Anisocytosis) Moderate Not Pres ent Hyperchromasia (test code = Hyperchromasia) Slight Not Present Hypochromasia (test code = Hypochromasia) Slight Not Pr esent Morphology [id number] 17:13:00 Test Item Value Reference Range Comments Smear Review Comments (test code = Smear Review See Comment Undefined Comments) Polychromasia (test code = Polychromasia) Moderate Not Pr esent Poikilocytosis (test code = Poikilocytosis) Moderate Not Present CBC w/ [id number] 17:13:00CBC w/ Differential (10/10/2015 5:13 PM) Specimen Blood Narrative The following orders were created for panel order CBC w/ Differential. Procedure Abnormality Status --------- ------ CBC w/ Differential[[id number]] AbnormalFinal result Morphology Review[[id number]] AbnormalFinal result Please view results for these tests on the individual orders.ECG 12 lead (Adult) 2015-10-10 14:47:15 Test Item Value Reference Range Comments EKG Ventricular Rate (test code = EKG Ventricular 58 BPM Rate) EKG Atrial Rate (test code = EKG Atrial Rate) 58 BPM EKG P-R Interval (test code = EKG P-R Interval) 164 ms EKG QRS Duration (test code = EKG QRS Duration) 98 ms EKG Q-T Interval (test code = EKG Q-T Interval) 400 ms EKG QTC Calculation (test code = EKG QTC 392 ms Calculation) EKG Calculated P Sullivan (test code = EKG Calculated 69 degrees P Sullivan) EKG Calculated R Sullivan (test code = EKG Calculated 22 degrees R Sullivan) EKG Calculated T Sullivan (test code = EKG Calculated 39 degrees T Sullivan) Comprehensive metabolic [id number] 15:57:00 Test Item Value Reference Range Comments Sodium (test code = Sodium) 142 mmol/L 135-145 mmol/L Potassium (test code = Potassium) 4.4 mmol/L 3.5-5.0 mmol/L Chloride (test code = Chloride) 101 mmol/L 98-107 mmol/L CO2 (test code = CO2) 29.0 mmol/L 22.0-30.0 mmol/L BUN (test code = BUN) 7 mg/dL 7-21 mg/dL Creatinine (test code = Creatinine) 0.63 mg/dL 0.70-1.30 mg /dL BUN/Creatinine Ratio (test code = 11 BUN/Creatinine Ratio) GFR MDRD Non Af Amer (test code = GFR MDRD >60 >=60 mL/min/1.73m2 Non Af Amer) GFR MDRD Af Amer (test code = GFR MDRD Af >60 >=60 m L/min/1.73m2 Amer) Anion Gap (test code = Anion Gap) 12 mmol/L 9-15 mmol/L Glucose (test code = Glucose) 83 mg/dL 65-179 mg/dL Calcium (test code = Calcium) 9.1 mg/dL 8.5-10.2 mg/dL Albumin (test code = Albumin) 4.0 g/dL 3.5-5.0 g/dL Total Protein (test code = Total Protein) 7.7 g/dL 6.6-8. 0 g/dL Total Bilirubin (test code = Total Bilirubin) 1.7 mg/dL 0. 0-1.2 mg/dL AST (test code = AST) 46 U/L 19-55 U/L ALT (test code = ALT) 33 U/L 19-72 U/L Alkaline Phosphatase (test code = Alkaline 63 U/L 38-12 6 U/L Phosphatase) [id number] 15:57:00 Test Item Value Reference Range Comments Reticulocyte Manual % (test code = 6.5 % 0.8-2.5 % Reticulocyte Manual %) Absolute Manual Reticulocyte (test code = 195.0 10*9/L 27.0-1 20.0 10*9/L Absolute Manual Reticulocyte) LDH, Lactate [id number] 15:57:00 Test Item Value Reference Range Comments LDH (test code = LDH) 974 U/L 338-610 U/L CBC w/ [id number] 15:57:00 Test Item Value Reference Range Comments WBC (test code = WBC) 4.5 10*9/L 4.5-11.0 10*9/L RBC (test code = RBC) 2.97 10*12/L 4.50-5.90 10*12/L HGB (test code = HGB) 9.9 g/dL 13.5-17.5 g/dL HCT (test code = HCT) 29.5 % 41.0-53.0 % MCV (test code = MCV) 99.3 fL 80.0-100.0 fL MCH (test code = MCH) 33.2 pg 26.0-34.0 pg MCHC (test code = MCHC) 33.5 g/dL 31.0-37.0 g/dL RDW (test code = RDW) 18.8 % 12.0-15.0 % MPV (test code = MPV) 7.9 fL 7.0-10.0 fL Platelet (test code = Platelet) 421 10*9/L 150-440 10*9/L Variable HGB Concentration (test code = Moderate Not Pres ent Variable HGB Concentration) Absolute Neutrophils (test code = Absolute 1.6 10*9/L 2.0-7 .5 10*9/L Neutrophils) Absolute Lymphocytes (test code = Absolute 2.1 10*9/L 1.5-5 .0 10*9/L Lymphocytes) Absolute Monocytes (test code = Absolute 0.4 10*9/L 0.2-0.8 10*9/L Monocytes) Absolute Eosinophils (test code = Absolute 0.1 10*9/L 0.0-0 .4 10*9/L Eosinophils) Absolute Basophils (test code = Absolute 0.1 10*9/L 0.0-0.1 10*9/L Basophils) Large Unstained Cells (test code = Large 8 % 0-4 % Unstained Cells) Macrocytosis (test code = Macrocytosis) Marked Not Pres ent Anisocytosis (test code = Anisocytosis) Moderate Not Pres ent Hyperchromasia (test code = Hyperchromasia) Slight Not Present Hypochromasia (test code = Hypochromasia) Slight Not Pr esent Morphology [id number] 15:57:00 Test Item Value Reference Range Comments Smear Review Comments (test code = Smear Review See Comment Undefined Comments) Giant Platelets (test code = Giant Platelets) Present No t Present Polychromasia (test code = Polychromasia) Slight Not Pr esent Target Cells (test code = Target Cells) Moderate Not Pres ent Poikilocytosis (test code = Poikilocytosis) Moderate Not Present CBC and [id number] 15:57:00CBC and differential (10/08/2015 3:57 PM) Specimen Blood Narrative The following orders were createdfor panel order CBC and differential. Procedure? Abnormality? Status? ---------? ? ------? CBC w/ Differential[[id number]]? Abnormal?Final result? Morphology Review[[id number]]? Abnormal?Final result? Please view results for these tests on the individual orders.LIGHT BLUE CITRATE EXTRA [id number] 15:57:00LIGHT BLUE CITRATE EXTRA TUBE (10/08/2015 3:57 PM) Specimen BloodXR Chest PA and [id number] 15:07:00XR Chest PA and Lateral (10/08/2015 3:07 PM) Narrative EXAM: [id number] 10/08/15?15:07:17ZTO141 ([facility]) : XR CHEST PA AND LATERAL DICTATED: 10/08/15 15:16:04 INTERPRETATION LOCATION:?[facility] CLINICAL INDICATION: 34 Year Old (M) with history of:?- , CHEST PAIN,?. TECHNIQUE: PA and lateral chest radiograph, 2 views COMPARISON: 08/27/15, 05/01/15 FINDINGS: A left IJ approach portacatheter is in stable position.?The heart and mediastinal contours are unchanged.?There are bibasilar hazy opacities partially obscuring the heart borders and right hemidiaphragm.? IMPRESSION: Nonspecific bibasilar opacities stable to slightly increased. Procedure Note Interface, Rad Results In - Sat Oct 08, 2015 3:18 PM EDT EXAM: [id number] 10/08/15 15:07:17YIU116 ([facility]) : XR CHEST PA AND LATERAL DICTATED: 10/08/15 15:16:04 INTERPRETATION LOCATION: [facility] CLINICAL INDICATION: 34 Year Old (M) with history of: - , CHEST PAIN, . TECHNIQUE: PA and lateral chest radiograph, 2 views COMPARISON: 08/27/15, 05/01/15 FINDINGS: A left IJ approach portacatheter is in stable position. The heart and mediastinal contours are unchanged. There are bibasilar hazy opacities partially obscuring the heart borders and right hemidiaphragm. IMPRESSION: Nonspecific bibasilar opacities stable to slightly increased.CBC 2015-08-29 07:09:00 Test Item Value Reference Range Comments WBC (test code = WBC) 5.8 10*9/L 4.5-11.0 10*9/L RBC (test code = RBC) 2.83 10*12/L 4.50-5.90 10*12/L HGB (test code = HGB) 9.2 g/dL 13.5-17.5 g/dL HCT (test code = HCT) 28.3 % 41.0-53.0 % MCV (test code = MCV) 100.3 fL 80.0-100.0 fL MCH (test code = MCH) 32.7 pg 26.0-34.0 pg MCHC (test code = MCHC) 32.6 g/dL 31.0-37.0 g/dL RDW (test code = RDW) 20.8 % 12.0-15.0 % MPV (test code = MPV) 7.4 fL 7.0-10.0 fL Platelet (test code = Platelet) 353 10*9/L 150-440 10*9/L nRBC (test code = nRBC) 5 /100 WBCs <=4 /100 WBCs Results Verified by Slide Scan (test code = Slide Reviewed Results Verified by Slide Scan) Comprehensive Metabolic [id number] 07:09:00 Test Item Value Reference Range Comments Sodium (test code = Sodium) 139 mmol/L 135-145 mmol/L Potassium (test code = Potassium) 3.7 mmol/L 3.5-5.0 mmol/L Chloride (test code = Chloride) 99 mmol/L 98-107 mmol/L CO2 (test code = CO2) 31.0 mmol/L 22.0-30.0 mmol/L BUN (test code = BUN) 7 mg/dL 7-21 mg/dL Creatinine (test code = Creatinine) 0.67 mg/dL 0.70-1.30 mg /dL BUN/Creatinine Ratio (test code = 10 BUN/Creatinine Ratio) GFR MDRD Non Af Amer (test code = GFR MDRD >60 >=60 mL/min/1.73m2 Non Af Amer) GFR MDRD Af Amer (test code = GFR MDRD Af >60 >=60 m L/min/1.73m2 Amer) Anion Gap (test code = Anion Gap) 9 mmol/L 9-15 mmol/L Glucose (test code = Glucose) 103 mg/dL 65-179 mg/dL Calcium (test code = Calcium) 8.0 mg/dL 8.5-10.2 mg/dL Albumin (test code = Albumin) 3.4 g/dL 3.5-5.0 g/dL Total Protein (test code = Total Protein) 6.8 g/dL 6.6-8. 0 g/dL Total Bilirubin (test code = Total Bilirubin) 1.9 mg/dL 0. 0-1.2 mg/dL AST (test code = AST) 31 U/L 19-55 U/L ALT (test code = ALT) 22 U/L 19-72 U/L Alkaline Phosphatase (test code = Alkaline 62 U/L 38-12 6 U/L Phosphatase) [id number] 07:09:00 Test Item Value Reference Range Comments Reticulocyte Manual % (test code = 8.7 % 0.8-2.5 % Reticulocyte Manual %) Absolute Manual Reticulocyte (test code = 241.9 10*9/L 27.0-1 20.0 10*9/L Absolute Manual Reticulocyte) Lactate [id number] 07:09:00 Test Item Value Reference Range Comments LDH (test code = LDH) 834 U/L 338-610 U/L Basic metabolic [id number] 05:21:00 Test Item Value Reference Range Comments Sodium (test code = Sodium) 141 mmol/L 135-145 mmol/L Potassium (test code = Potassium) 3.9 mmol/L 3.5-5.0 mmol/L Chloride (test code = Chloride) 103 mmol/L 98-107 mmol/L CO2 (test code = CO2) 27.0 mmol/L 22.0-30.0 mmol/L BUN (test code = BUN) 6 mg/dL 7-21 mg/dL Creatinine (test code = Creatinine) 0.66 mg/dL 0.70-1.30 mg /dL BUN/Creatinine Ratio (test code = 9 BUN/Creatinine Ratio) GFR MDRD Non Af Amer (test code = GFR MDRD >60 >=60 mL/min/1.73m2 Non Af Amer) GFR MDRD Af Amer (test code = GFR MDRD Af >60 >=60 m L/min/1.73m2 Amer) Anion Gap (test code = Anion Gap) 11 mmol/L 9-15 mmol/L Glucose (test code = Glucose) 95 mg/dL 65-179 mg/dL Calcium (test code = Calcium) 8.5 mg/dL 8.5-10.2 mg/dL [id number] 05:21:00 Test Item Value Reference Range Comments Magnesium (test code = Magnesium) 1.8 mg/dL 1.6-2.2 mg/dL [id number] 05:21:00 Test Item Value Reference Range Comments Phosphorus (test code = Phosphorus) 4.7 mg/dL 2.4-4.5 mg/d L [id number] 05:21:00 Test Item Value Reference Range Comments Reticulocyte Manual % (test code = 8.2 % 0.8-2.5 % Reticulocyte Manual %) Absolute Manual Reticulocyte (test code = 234.5 10*9/L 27.0-1 20.0 10*9/L Absolute Manual Reticulocyte) Lactate [id number] 05:21:00 Test Item Value Reference Range Comments LDH (test code = LDH) 808 U/L 338-610 U/L CBC w/ [id number] 05:21:00 Test Item Value Reference Range Comments Results Verified by Slide Scan (test code = Slide Reviewed Results Verified by Slide Scan) WBC (test code = WBC) 5.2 10*9/L 4.5-11.0 10*9/L RBC (test code = RBC) 2.73 10*12/L 4.50-5.90 10*12/L HGB (test code = HGB) 8.8 g/dL 13.5-17.5 g/dL HCT (test code = HCT) 27.0 % 41.0-53.0 % MCV (test code = MCV) 99.0 fL 80.0-100.0 fL MCH (test code = MCH) 32.3 pg 26.0-34.0 pg MCHC (test code = MCHC) 32.7 g/dL 31.0-37.0 g/dL RDW (test code = RDW) 20.4 % 12.0-15.0 % MPV (test code = MPV) 8.0 fL 7.0-10.0 fL Platelet (test code = Platelet) 310 10*9/L 150-440 10*9/L nRBC (test code = nRBC) 1 /100 WBCs <=4 /100 WBCs Variable HGB Concentration (test code = Moderate Not Pres ent Variable HGB Concentration) Absolute Neutrophils (test code = Absolute 1.7 10*9/L 2.0-7 .5 10*9/L Neutrophils) Absolute Lymphocytes (test code = Absolute 2.5 10*9/L 1.5-5 .0 10*9/L Lymphocytes) Absolute Monocytes (test code = Absolute 0.5 10*9/L 0.2-0.8 10*9/L Monocytes) Absolute Eosinophils (test code = Absolute 0.1 10*9/L 0.0-0 .4 10*9/L Eosinophils) Absolute Basophils (test code = Absolute 0.0 10*9/L 0.0-0.1 10*9/L Basophils) Large Unstained Cells (test code = Large 6 % 0-4 % Unstained Cells) Macrocytosis (test code = Macrocytosis) Marked Not Pres ent Anisocytosis (test code = Anisocytosis) Moderate Not Pres ent Hyperchromasia (test code = Hyperchromasia) Slight Not Present Hypochromasia (test code = Hypochromasia) Slight Not Pr esent Morphology [id number] 05:21:00 Test Item Value Reference Range Comments Smear Review Comments (test code = Smear Review See Comment Undefined Comments) Giant Platelets (test code = Giant Platelets) Present No t Present Polychromasia (test code = Polychromasia) Moderate Not Pr esent Target Cells (test code = Target Cells) Moderate Not Pres ent Poikilocytosis (test code = Poikilocytosis) Moderate Not Present CBC and [id number] 05:21:00CBC and differential (08/28/2015 5:21 AM) Specimen Blood Narrative The following orders were createdfor panel order CBC and differential. Procedure? Abnormality? Status? ---------? ? ------? CBC w/ Differential[[id number]]? Abnormal?Final result? Morphology Review[[id number]]? Abnormal?Final result? Please view results for these tests on the individual orders.XR Chest PA and [id number] 18:34:20XR Chest PA and Lateral (08/27/2015 6:34 PM) Narrative EXAM: CHEST TWO VIEW DATE: 08/27/15 18:34:20 DICTATED: 08/27/15 18:35:53 INTERPRETATION LOCATION: [facility] CLINICAL INDICATION: 34 Year Old (M): SHORTNESS OF BREATH. COMPARISON: 05/01/15 TECHNIQUE: Upright PA and lateralviews of the chest. FINDINGS: Accessed left jugular port catheter is unchanged. There is external catheter tubing overlying the right upper abdominal quadrant, mediastinum, and left upper lobe. Inspiration is comparable to the prior exam. There is minimal basilar atelectasis. Mild unchanged pulmonary vascular congestion. No new airspace consolidation, pleural effusion, or pneumothorax. Unchanged cardi omediastinal silhouette. No acute osseous abnormalities. IMPRESSION: Unchanged appearance of the chest. Procedure Note Interface, Rad Results In - Sat August 27, 2015 6:37 PM EDT EXAM: CHEST TWO VIEW DATE:08/27/15 18:34:20 DICTATED: 08/27/15 18:35:53 INTERPRETATION LOCATION: [facility] CLINICAL INDICATION: 34 Year Old (M): SHORTNESS OF BREATH. COMPARISON: 05/01/15 TECHNIQUE: Upright PA and lateral views of the chest. FINDINGS: Accessed left jugular port catheter is unchanged. There is external catheter tubing overlying the right upper abdominal quadrant, mediastinum, and left upper lobe. Inspiration is comparable to the prior exam. There is minimal basilar atelectasis. Mild unchanged pulmonary vascular congestion. No new airspace consolidation, pleural effusion, or pneumothorax. Unchanged cardiomediastinal silhouette. No acute osseous abnormalities. IMPRESSION: Unchanged appearance of the chest.[id number] 17:50:00 Test Item Value Reference Range Comments Reticulocyte Manual % (test code = 10.0 % 0.8-2.5 % Reticulocyte Manual %) Absolute Manual Reticulocyte (test code = 324.0 10*9/L 27.0-1 20.0 10*9/L Absolute Manual Reticulocyte) CBC w/ [id number] 17:50:00 Test Item Value Reference Range Comments Results Verified by Slide Scan (test code = Slide Reviewed Results Verified by Slide Scan) WBC (test code = WBC) 6.3 10*9/L 4.5-11.0 10*9/L RBC (test code = RBC) 3.11 10*12/L 4.50-5.90 10*12/L HGB (test code = HGB) 10.2 g/dL 13.5-17.5 g/dL HCT (test code = HCT) 30.9 % 41.0-53.0 % MCV (test code = MCV) 99.3 fL 80.0-100.0 fL MCH (test code = MCH) 32.6 pg 26.0-34.0 pg MCHC (test code = MCHC) 32.8 g/dL 31.0-37.0 g/dL RDW (test code = RDW) 20.3 % 12.0-15.0 % MPV (test code = MPV) 7.8 fL 7.0-10.0 fL Platelet (test code = Platelet) 388 10*9/L 150-440 10*9/L nRBC (test code = nRBC) 1 /100 WBCs <=4 /100 WBCs Variable HGB Concentration (test code = Moderate Not Pres ent Variable HGB Concentration) Absolute Neutrophils (test code = Absolute 3.6 10*9/L 2.0-7 .5 10*9/L Neutrophils) Absolute Lymphocytes (test code = Absolute 1.7 10*9/L 1.5-5 .0 10*9/L Lymphocytes) Absolute Monocytes (test code = Absolute 0.5 10*9/L 0.2-0.8 10*9/L Monocytes) Absolute Eosinophils (test code = Absolute 0.1 10*9/L 0.0-0 .4 10*9/L Eosinophils) Absolute Basophils (test code = Absolute 0.0 10*9/L 0.0-0.1 10*9/L Basophils) Large Unstained Cells (test code = Large 6 % 0-4 % Unstained Cells) Macrocytosis (test code = Macrocytosis) Marked Not Pres ent Anisocytosis (test code = Anisocytosis) Moderate Not Pres ent Hyperchromasia (test code = Hyperchromasia) Slight Not Present Hypochromasia (test code = Hypochromasia) Slight Not Pr esent LDH, Lactate [id number] 17:50:00 Test Item Value Reference Range Comments LDH (test code = LDH) 921 U/L 338-610 U/L Basic Metabolic [id number] 17:50:00 Test Item Value Reference Range Comments Sodium (test code = Sodium) 139 mmol/L 135-145 mmol/L Potassium (test code = Potassium) 4.0 mmol/L 3.5-5.0 mmol/L Chloride (test code = Chloride) 99 mmol/L 98-107 mmol/L CO2 (test code = CO2) 26.0 mmol/L 22.0-30.0 mmol/L BUN (test code = BUN) 7 mg/dL 7-21 mg/dL Creatinine (test code = Creatinine) 0.63 mg/dL 0.70-1.30 mg /dL BUN/Creatinine Ratio (test code = 11 BUN/Creatinine Ratio) GFR MDRD Non Af Amer (test code = GFR MDRD >60 >=60 mL/min/1.73m2 Non Af Amer) GFR MDRD Af Amer (test code = GFR MDRD Af >60 >=60 m L/min/1.73m2 Amer) Anion Gap (test code = Anion Gap) 14 mmol/L 9-15 mmol/L Glucose (test code = Glucose) 87 mg/dL 65-179 mg/dL Calcium (test code = Calcium) 9.1 mg/dL 8.5-10.2 mg/dL Morphology [id number] 17:50:00 Test Item Value Reference Range Comments Smear Review Comments (test code = Smear Review See Comment Undefined Comments) Polychromasia (test code = Polychromasia) Slight Not Pr esent Target Cells (test code = Target Cells) Moderate Not Pres ent Bilirubin, [id number] 17:50:00 Test Item Value Reference Range Comments Total Bilirubin (test code = Total Bilirubin) 2.7 mg/dL 0. 0-1.2 mg/dL CBC and [id number] 17:50:00CBC and differential (08/27/2015 5:50 PM) Specimen Blood Narrative The following orders were createdfor panel order CBC and differential. Procedure? Abnormality? Status? ---------? ? ------? CBC w/ Differential[[id number]]? Abnormal?Final result? Morphology Review[[id number]]? Abnormal?Final result? Please view results for these tests on the individual orders. Encounters Start End Encounter Admission Attending Care Care Encounter Date/Time Date/Time Type Type Clinicians Facility Department ID 2019-05-05 Inpatient NAOMY [facility] [id number] 20:16:00 ERIN _[id number] 2017-10-18 Inpatient ER STEPHANI [facility] [id number] 16:43:00 , JEANETTE _[id number] 2015-10-12 Inpatient [facility] [id number] 11:14:02 [id number] 2015-10-12 Inpatient [facility] [id number] 00:00:00 _[id number] 2020-02-19 2020-02-19 Outpatient [facility] [id number] 00:00:00 00:00:00 rn [facility] 2020-02-17 2020-02-17 Outpatient Desmond Medelliner n [id number] 00:00:00 00:00:00 Rasheed [facility]n [facility] 2020-02-15 2020-02-15 Outpatient [facility] [id number] 00:00:00 00:00:00 [facility]n [facility] 2020-02-08 2020-02-08 Outpatient [facility] [id number] 00:00:00 00:00:00 rn [facility] 2020-02-05 2020-02-05 Outpatient [facility] [id number] 00:00:00 00:00:00 rn [facility] 2020-02-03 2020-02-03 Outpatient [facility] [id number] 00:00:00 00:00:00 rn [facility] 2020-02-02 2020-02-02 Outpatient [facility] [id number] 00:00:00 00:00:00 rn [facility] 2020-02-01 2020-02-01 Outpatient [facility] [id number] 00:00:00 00:00:00 rn [facility] 2020-01-31 2020-01-31 Outpatient [facility] [id number] 00:00:00 00:00:00 rn [facility] 2020-01-29 2020-01-29 Outpatient [facility] [id number] 00:00:00 00:00:00 rn [facility] 2020-01-28 2020-01-28 Outpatient [facility] [id number] 00:00:00 00:00:00 rn [facility] 2020-01-27 2020-01-27 Outpatient [facility] [id number] 00:00:00 00:00:00 rn [facility] 2020-01-26 2020-01-26 Outpatient [facility] [id number] 00:00:00 00:00:00 rn [facility] 2020-01-25 2020-01-25 Outpatient [facility] [id number] 00:00:00 00:00:00 rn [facility] 2020-01-24 2020-01-24 Outpatient [facility] [id number] 00:00:00 00:00:00 rn [facility] 2020-01-23 2020-01-23 Outpatient [facility] [id number] 00:00:00 00:00:00 rn [facility] 2020-01-22 2020-01-22 Outpatient Desmond [facility] [id number] 00:00:00 00:00:00 rn [facility] 2020-01-19 2020-01-19 Vignesh Ramirez [facility] 2 [id number] 00:00:00 00:00:00 Nely Iqbal rn [facility] 2020-01-18 2020-01-18 Outpatient Desmond [facility] [id number] 00:00:00 00:00:00 rn [facility] 2020-01-12 2020-01-12 Outpatient Desmond [facility] [id number] 00:00:00 00:00:00 rn [facility] 2020-01-11 2020-01-11 Outpatient Desmond [facility] [id number] 00:00:00 00:00:00 rn [facility] 2020-01-06 2020-01-06 Outpatient Desmond Medellin n [id number] 00:00:00 00:00:00 Rasheed guidry [facility] 2020-01-01 2020-01-01 Outpatient Desmond Rucker [id number] 00:00:00 00:00:00 rn [facility] 2019-12-25 2019-12-25 Outpatient Desmond [facility] [id number] 00:00:00 00:00:00 rn [facility] 2019-12-21 2019-12-21 Outpatient Desmond Rucker [id number] 00:00:00 00:00:00 rn [facility] 2019-12-17 2019-12-17 Outpatient Desmond Medellin n [id number] 00:00:00 00:00:00 Rasheed guidry [facility] 2019-12-14 2019-12-14 Outpatient Desmond Medellin n [id number] 00:00:00 00:00:00 Rasheed guidry [facility] 2019-12-13 2019-12-13 Outpatient Desmond Rucker [id number] 00:00:00 00:00:00 rn [facility] 2019 2019 Outpatient Desmond Rucker [id number] 00:00:00 00:00:00 rn [facility] [place] 2019-12-11 2019-12-11 Outpatient Desmond Rucker [id number] 00:00:00 00:00:00 rn [facility] 2019-12-10 2019-12-10 Outpatient Desmond Rucker [id number] 00:00:00 00:00:00 rn [facility] 2019-12-09 2019-12-09 Outpatient Desmond Rucker [id number] 00:00:00 00:00:00 rn [facility] [place] 2019-12-08 2019-12-08 Outpatient Desmond Rucker [id number] 00:00:00 00:00:00 rn [facility] [place] 2019-12-07 2019-12-07 Outpatient Desmond Rucker [id number] 00:00:00 00:00:00 rn [facility] [place] 2019-12-06 2019-12-06 Outpatient Desmond Rucker [id number] 00:00:00 00:00:00 rn [facility] [place] 2019-12-05 2019-12-05 Outpatient Desmond Rucker [id number] 00:00:00 00:00:00 rn [facility] [place] 2019-12-04 2019-12-04 Outpatient Desmond Rucker [id number] 00:00:00 00:00:00 rn [facility] [place] 2019-12-03 2019-12-03 Outpatient Desmond Rucker [id number] 00:00:00 00:00:00 rn [facility] [place] 2019-12-02 2019-12-02 Outpatient Desmond Rucker [id number] 00:00:00 00:00:00 rn [facility] [place] 2019-11-30 2019-11-30 Outpatient Desmond Rucker [id number] 00:00:00 00:00:00 rn [facility] [place] 2019-11-26 2019-11-26 Outpatient Desmond Rucker [id number] 00:00:00 00:00:00 rn [facility] 2019-11-23 2019-11-23 Outpatient Desmond Rucker [id number] 00:00:00 00:00:00 rn [facility] [place] 2019-11-13 2019-11-13 Outpatient Desmond uRcker [id number] 00:00:00 00:00:00 rn [facility] 2019-11-10 2019-11-10 Outpatient WaltercameronDesmond goodmanmika n [id number] 00:00:00 00:00:00 Rasheed rn [facility] 2019-11-09 2019-11-09 Outpatient Desmond Rucker [id number] 00:00:00 00:00:00 rn [facility] 2019-11-03 2019-11-03 Outpatient Desmond Rucker [id number] 00:00:00 00:00:00 rn [facility] 2019-10-29 2019-10-29 Outpatient Desmond Rucker [id number] 00:00:00 00:00:00 rn [facility] [place] 2019-10-27 2019-10-27 Outpatient Desmond Rucker [id number] 00:00:00 00:00:00 rn [facility] [place] 2019-10-26 2019-10-26 Outpatient Desmond Rucker [id number] 00:00:00 00:00:00 rn [facility] [place] 2019-10-23 2019-10-23 Outpatient Desmond Rucker [id number] 00:00:00 00:00:00 rn [facility] [place] 2019-10-21 2019-10-21 Outpatient Desmond Rucker [id number] 00:00:00 00:00:00 rn [facility] [place] 2019-10-20 2019-10-20 Outpatient Desmond Rucker [id number] 00:00:00 00:00:00 rn [facility] [place] 2019-10-19 2019-10-19 Outpatient Desmond Rucker [id number] 00:00:00 00:00:00 rn [facility] [place] 2019-10-18 2019-10-18 Outpatient Desmond Rucker [id number] 00:00:00 00:00:00 rn [facility] [place] 2019-10-16 2019-10-16 Outpatient Desmond Rucker [id number] 00:00:00 00:00:00 rn [facility] [place] 2019-10-15 2019-10-15 Outpatient Desmond Rucker [id number] 00:00:00 00:00:00 rn [facility] [place] 2019-10-14 2019-10-14 Outpatient Desmond Rucker [id number] 00:00:00 00:00:00 rn [facility] [place] 2019-10-12 2019-10-12 Outpatient Desmond Rucker [id number] 00:00:00 00:00:00 rn [facility] [place] 2019-10-10 2019-10-10 Out[facility] [id number] 00:00:00 00:00:00 rn [facility] 2019-10-09 2019-10-09 Outpatient Desmond Rucker [id number] 00:00:00 00:00:00 rn [facility] 2019-10-08 2019-10-08 Outpatient Desmond Rucker [id number] 00:00:00 00:00:00 rn [facility] [place] 2019-10-07 2019-10-07 Outpatient Desmond Rucker [id number] 00:00:00 00:00:00 rn [facility] [place] 2019-10-06 2019-10-06 Outpatient Desmond Rucker [id number] 00:00:00 00:00:00 rn [facility] [place] 2019-10-05 2019-10-05 Outpatient Desmond Rucker [id number] 00:00:00 00:00:00 rn [facility] [place] 2019-10-04 2019-10-04 Outpatient Desmond Rucker [id number] 00:00:00 00:00:00 rn [facility] [place] 2019-10-03 2019-10-03 Outpatient Desmond Rucker [id number] 00:00:00 00:00:00 rn [facility] [place] 2019-10-02 2019-10-02 Outpatient Desmond Rucker [id number] 00:00:00 00:00:00 rn [facility] [place] 2019-10-01 2019-10-01 Outpatient Desmond Rucker [id number] 00:00:00 00:00:00 rn [facility] [place] 2019-09-30 2019-09-30 Outpatient Desmond Rucker [id number] 00:00:00 00:00:00 rn [facility] [place] 2019-09-29 2019-09-29 Outpatient Desmond Rucker [id number] 00:00:00 00:00:00 rn [facility] [place] 2019-09-28 2019-09-28 Outpatient Desmond Rucker [id number] 00:00:00 00:00:00 rn Medical [facility] 2019-09-26 2019-09-26 Outpatient Desmond Rucker [id number] 00:00:00 00:00:00 [facility]n [facility] [place] 2019-09-23 2019-09-23 Outpatient Desmond Rucker [id number] 00:00:00 00:00:00 [facility]n [facility] 2019-09-22 2019-09-22 Outpatient Desmond Rucker [id number] 00:00:00 00:00:00 [facility]n [facility] 2019-09-21 2019-09-21 Outpatient Desmond Rucker [id number] 00:00:00 00:00:00 rn [facility] 2019-09-18 2019-09-18 GerardoVignesh [facility] 2 [id number] 00:00:00 00:00:00 Yoly Iqbal [facility]n [facility] 2019-09-17 2019-09-17 Outpatient Desmond Rucker [id number] 00:00:00 00:00:00 [facility]n [facility] 2019-09-15 2019-09-15 Outpatient Desmond Rucker [id number] 00:00:00 00:00:00 rn [facility] 2019-09-12 2019-09-12 Outpatient Desmond Rucker [id number] 00:00:00 00:00:00 [facility]n [facility] 2019-09-07 2019-09-07 Outpatient Desmond Rucker [id number] 00:00:00 00:00:00 [facility]n [facility] 2019-08-31 2019-08-31 Outpatient Desmond Rucker [id number] 00:00:00 00:00:00 rn [facility] 2019-08-26 2019-08-26 Outpatient Desmond Rucker [id number] 00:00:00 00:00:00 rn [facility] 2019-08-25 2019-08-25 Outpatient Desmond Medellin n [id number] 00:00:00 00:00:00 Rasheed guidry [facility] 2019-08-24 2019-08-24 Outpatient Desmond Rucker [id number] 00:00:00 00:00:00 rn [facility] 2019-08-20 2019-08-20 Gerardo Desmond Medellin 2 [id number] 00:00:00 00:00:00 Yoly Iqbal rn [facility] 2019-08-18 2019-08-18 Outpatient Desmond Medellin n [id number] 00:00:00 00:00:00 Rasheed guidry [facility] 2019-08-17 2019-08-17 Outpatient Desmond Rucker [id number] 00:00:00 00:00:00 [facility]n [facility] 2019-08-10 2019-08-10 Outpatient Desmond Rucker [id number] 00:00:00 00:00:00 rn [facility] 2019-08-03 2019-08-03 Outpatient Desmond Rucker [id number] 00:00:00 00:00:00 rn [facility] 2019-07-30 2019-07-30 Gerson CarrilloDesmond goodman 2 [id number] 00:00:00 00:00:00 Yoly Iqbal [facility]n [facility] [place] 2019-07-22 2019-07-22 Outpatient Desmond Rucker [id number] 00:00:00 00:00:00 [facility]n [facility] 2019-07-17 2019-07-17 Outpatient Desmodn Rucker [id number] 00:00:00 00:00:00 [facility]n [facility] [place] 2019-07-16 2019-07-16 Vignesh CarrilloDesmond 2 [id number] 00:00:00 00:00:00 Yoly Iqbal [facility]n [facility] [place] 2019-07-15 2019-07-15 Outpatient Desmond Rucker [id number] 00:00:00 00:00:00 [facility]n [facility] [place] 2019-07-13 2019-07-13 Outpatient Desmond Rucker [id number] 00:00:00 00:00:00 [facility]n [facility] [place] 2019-07-09 2019-07-09 Outpatient Desmond Rucker [id number] 00:00:00 00:00:00 [facility]n [facility] [place] 2019-07-08 2019-07-08 Outpatient Desmond Rucker [id number] 00:00:00 00:00:00 [facility]n [facility] [place] 2019-07-06 2019-07-06 Outpatient Desmond Rucker [id number] 00:00:00 00:00:00 [facility]n [facility] [place] 2019-07-02 2019-07-02 Outpatient Desmond Rucker [id number] 00:00:00 00:00:00 [facility]n [facility] [place] 2019-07-01 2019-07-01 Outpatient BANNER [id number] 00:00:00 23:59:00 _[id number] 2019-07-01 Outpatient Desmond Rucker [id number] 00:00:00 00:00:00 [facility]n [facility] 2019-06-29 2019-06-29 Outpatient Desmond Rucker [id number] 00:00:00 00:00:00 rn [facility] 2019-06-25 2019-06-25 Outpatient Desmond Rucker [id number] 00:00:00 00:00:00 rn [facility] 2019-06-24 2019-06-24 Vignesh Medellin [facility] [id number] 00:00:00 00:00:00 Dr. Rasheed Iqbal rn [facility] [place] 2019-06-22 2019-06-22 Outpatient Desmond Rucker [id number] 00:00:00 00:00:00 [facility]n [facility] 2019-06-18 2019-06-18 Outpatient Desmond Rucker [id number] 00:00:00 00:00:00 [facility]n [facility] [place] 2019-06-17 2019-06-17 Outpatient Desmond Rucker [id number] 00:00:00 00:00:00 [facility]n [facility] [place] 2019-06-15 2019-06-15 Outpatient Desmond Rucker [id number] 00:00:00 00:00:00 [facility]n [facility] 2019-06-12 2019-06-12 Outpatient Desmond Rucker [id number] 00:00:00 00:00:00 [facility]n [facility] 2019-06-08 2019-06-08 Outpatient Desmond Medellin n [id number] 00:00:00 00:00:00 Rasheed guidry [facility] 2019-06-04 2019-06-04 Outpatient Desmond Rucker [id number] 00:00:00 00:00:00 [facility]n [facility] 2019-06-02 2019-06-02 Outpatient Desmond Rucker [id number] 00:00:00 00:00:00 rn [facility] 2019-05-28 2019-05-28 Outpatient Desmond Rucker [id number] 00:00:00 00:00:00 [facility]n [facility] 2019-05-27 2019-05-27 Outpatient Desmond Rucker [id number] 00:00:00 00:00:00 [facility]n [facility] 2019-05-26 2019-05-26 Outpatient Desmond Rucker [id number] 00:00:00 00:00:00 rn [facility] 2019-05-25 2019-05-25 Outpatient Desmond Medelliner n [id number] 00:00:00 00:00:00 Rasheed guidry [facility] 2019-05-20 2019-05-20 Outpatient Desmond Medelliner n [id number] 00:00:00 00:00:00 Rasheed guidry [facility] 2019-05-18 2019-05-18 Out[facility] [id number] 00:00:00 00:00:00 [facility] 2019-05-15 2019-05-15 Out[facility] [id number] 00:00:00 00:00:00 [facility]n [facility] 2019-05-14 2019-05-14 Out[facility] [id number] 00:00:00 00:00:00 [facility]n [facility] 2019-05-11 2019-05-11 Out[facility] [id number] 00:00:00 00:00:00 [facility]n [facility] 2019-05-09 2019-05-09 Out[facility] [id number] 00:00:00 00:00:00 [facility]n [facility] 2019-05-07 2019-05-07 Out[facility] [id number] 00:00:00 00:00:00 [facility]n [facility] 2019-05-05 2019-05-05 Out[facility] [id number] 00:00:00 00:00:00 [facility]n [facility] 2019-05-05 2019-05-05 [facility] [id number] 00:00:00 00:00:00 7 2019-05-04 2019-05-04 Out[facility] [id number] 00:00:00 00:00:00 [facility]n [facility] 2019-05-03 2019-05-03 Out[facility] [id number] 00:00:00 00:00:00 [facility]n [facility] 2019-05-02 2019-05-02 Out[facility] [id number] 00:00:00 00:00:00 [facility]n [facility] 2019-05-01 2019-05-01 [facility] [id number] 00:00:00 00:00:00 [facility]n [facility] 2019-04-29 2019-04-29 Outpatient Desmond Rucker [id number] 00:00:00 00:00:00 [facility]n [facility] 2019-04-28 2019-04-28 Outpatient Desmond Rucker [id number] 00:00:00 00:00:00 [facility]n [facility] 2019-04-27 2019-04-27 Outpatient Desmond Rucker [id number] 00:00:00 00:00:00 [facility]n [facility] [place] 2019-04-23 2019-04-23 Outpatient Desmond Rucker [id number] 00:00:00 00:00:00 [facility]n [facility] [place] 2019-04-21 2019-04-21 Outpatient Desmond Rucker [id number] 00:00:00 00:00:00 [facility]n [facility] [place] 2019-04-20 2019-04-20 Vignesh Carrillo, Desmond Rucker 2 [id number] 00:00:00 00:00:00 Yoly Iqbal [facility]n [facility] [place] 2019-04-16 2019-04-16 Outpatient Desmond Rucker [id number] 00:00:00 00:00:00 [facility]n [facility] [place] 2019-04-13 2019-04-13 Outpatient Desmond Rucker [id number] 00:00:00 00:00:00 [facility]n [facility] [place] 2019-04-11 2019-04-11 Outpatient Desmond Rucker [id number] 00:00:00 00:00:00 [facility]n [facility] [place] 2019-04-09 2019-04-09 Outpatient Desmond Rucker [id number] 00:00:00 00:00:00 [facility]n [facility] [place] 2019-04-08 2019-04-08 Outpatient Desmond Rucker [id number] 00:00:00 00:00:00 [facility]n [facility] [place] 2019-04-06 2019-04-06 Outpatient Desmond Rucker [id number] 00:00:00 00:00:00 [facility]n [facility] [place] 2019-04-05 2019-04-05 Outpatient Desmond Rucker [id number] 00:00:00 00:00:00 [facility]n [facility] [place] 2019-04-03 2019-04-03 Outpatient Desmond Rucker [id number] 00:00:00 00:00:00 [facility]n [facility] [place] 2019-04-01 2019-04-01 Outpatient Desmond Rucker [id number] 00:00:00 00:00:00 [facility]n [facility] [place] 2019-03-30 2019-03-30 Outpatient Desmond Rucker [id number] 00:00:00 00:00:00 [facility]n [facility] [place] 2019-03-27 2019-03-27 Outpatient Desmond Rucker [id number] 00:00:00 00:00:00 [facility]n [facility] [place] 2019-03-26 2019-03-26 Outpatient Desmond Rucker [id number] 00:00:00 00:00:00 [facility]n [facility] [place] 2019-03-23 2019-03-23 Outpatient Desmond Rucker [id number] 00:00:00 00:00:00 [facility]n [facility] [place] 2019-03-18 2019-03-18 Outpatient Desmond Rucker [id number] 00:00:00 00:00:00 [facility]n [facility] [place] 2019-03-16 2019-03-16 Outpatient Desmond Rucker [id number] 00:00:00 00:00:00 [facility]n [facility] [place] 2019-03-14 2019-03-14 Outpatient Desmond Rucker [id number] 00:00:00 00:00:00 [facility]n [facility] [place] 2019-03-12 2019-03-12 James Desmond Medellin 2 [id number] 00:00:00 00:00:00 Nely Iqbal [facility]n [facility] [place] 2019-03-11 2019-03-11 Outpatient Desmond Rucker [id number] 00:00:00 00:00:00 [facility]n [facility] [place] 2019-03-09 2019-03-09 Outpatient Desmond Rucker [id number] 00:00:00 00:00:00 [facility]n [facility] [place] 2019-03-05 2019-03-05 Outpatient BANNER [id number] 00:00:00 00:00:00 _[id number] 2019-03-04 Outpatient Desmond Rucker [id number] 00:00:00 00:00:00 [facility]n [facility] [place] 2019-03-02 2019-03-02 Outpatient Desmond Rucker [id number] 00:00:00 00:00:00 [facility]n [facility] [place] 2019-02-27 2019-02-27 Outpatient Vignesh Desmond Casarezmika n [id number] 00:00:00 00:00:00 Rasheed guidry [facility] 2019-02-25 2019-02-25 Outpatient Desmond Rucker [id number] 00:00:00 00:00:00 rn [facility] 2019-02-24 2019-02-24 Outpatient Desmond Rucker [id number] 00:00:00 00:00:00 rn [facility] 2019-02-23 2019-02-23 Outpatient Desmond Rucker [id number] 00:00:00 00:00:00 [facility]n [facility] 2019-02-22 2019-02-22 Outpatient Desmond Rucker [id number] 00:00:00 00:00:00 [facility]n [facility] 2019-02-21 2019-02-21 Outpatient Desmond Rucker [id number] 00:00:00 00:00:00 [facility]n [facility] 2019-02-20 2019-02-20 Outpatient Desmond Rucker [id number] 00:00:00 00:00:00 [facility]n [facility] 2019-02-19 2019-02-19 Outpatient Desmond Rucker [id number] 00:00:00 00:00:00 [facility]n [facility] 2019-02-18 2019-02-18 Outpatient Desmond Rucker [id number] 00:00:00 00:00:00 [facility]n [facility] 2019-02-13 2019-02-13 Outpatient Desmond Medelliner n [id number] 00:00:00 00:00:00 Rasheed guidry [facility] 2019-02-12 2019-02-12 Outpatient Desmond Rucker [id number] 00:00:00 00:00:00 [facility]n [facility] 2019-02-11 2019-02-11 Outpatient Desmond Rucker [id number] 00:00:00 00:00:00 rn [facility] 2019-02-10 2019-02-10 Outpatient Desmond Rucker [id number] 00:00:00 00:00:00 [facility]n [facility] 2019-02-09 2019-02-09 Outpatient Desmond Rucker [id number] 00:00:00 00:00:00 [facility]n [facility] 2019-02-08 2019-02-08 Outpatient Desmond Rucker [id number] 00:00:00 00:00:00 [facility]n [facility] 2019-02-07 2019-02-07 Outpatient Desmond Rucker [id number] 00:00:00 00:00:00 [facility]n [facility] 2019-02-06 2019-02-06 Outpatient Desmond Rucker [id number] 00:00:00 00:00:00 [facility]n [facility] 2019-02-05 2019-02-05 Outpatient Desmond Rucker [id number] 00:00:00 00:00:00 rn [facility] 2019-02-04 2019-02-04 Outpatient Desmond Rucker [id number] 00:00:00 00:00:00 [facility]n [facility] 2019-02-03 2019-02-03 Outpatient Desmond Rucker [id number] 00:00:00 00:00:00 [facility]n [facility] 2019-02-02 2019-02-02 Outpatient Desmond Rucker [id number] 00:00:00 00:00:00 rn [facility] 2019-01-31 2019-01-31 Outpatient Desmond Rucker [id number] 00:00:00 00:00:00 [facility]n [facility] [place] 2019-01-29 2019-01-29 Outpatient Desmond Rucker [id number] 00:00:00 00:00:00 [facility]n [facility] [place] 2019-01-29 2019-01-29 [facility] [id number] 00:00:00 00:00:00 4 2019-01-29 2019-01-29 [facility] [id number] 00:00:00 00:00:00 2 2019-01-28 2019-01-28 Outpatient Demsond Rucker [id number] 00:00:00 00:00:00 [facility]n [facility] 2019-01-26 2019-01-26 Outpatient Desmond Medelliner n [id number] 00:00:00 00:00:00 Rasheed guidry [facility] 2019-01-19 2019-01-19 Outpatient Desmond Rucker [id number] 00:00:00 00:00:00 rn [facility] 2019-01-16 2019-01-16 [facility]Vignesh [facility] 2 [id number] 00:00:00 00:00:00 Nely Iqbal rn [facility] 2019-01-15 2019-01-15 Outpatient Desmond Rucker [id number] 00:00:00 00:00:00 [facility]n [facility] [place] 2019-01-12 2019-01-12 Outpatient Desmond Rucker [id number] 00:00:00 00:00:00 [facility]n [facility] [place] 2019-01-10 2019-01-10 Outpatient Desmond Rucker [id number] 00:00:00 00:00:00 [facility]n [facility] [place] 2019-01-09 2019-01-09 Outpatient Desmond Rucker [id number] 00:00:00 00:00:00 [facility]n [facility] [place] 2019-01-06 2019-01-06 Outpatient Desmond Rucker [id number] 00:00:00 00:00:00 [facility]n [facility] [place] 2019-01-05 2019-01-05 Outpatient Desmond Medellin n [id number] 00:00:00 00:00:00 Rasheed rn [facility] [place] 2019-01-04 2019-01-04 Outpatient Desmond Rucker [id number] 00:00:00 00:00:00 [facility]n [facility] [place] 2019-01-03 2019-01-03 Outpatient Desmond Rucker [id number] 00:00:00 00:00:00 [facility]n [facility] [place] 2019-01-02 2019-01-02 Outpatient Desmond Rucker [id number] 00:00:00 00:00:00 [facility]n [facility] [place] 2019-01-01 2019-01-01 Outpatient Desmond Rucekr [id number] 00:00:00 00:00:00 [facility]n [facility] [place] 2018-12-31 2018-12-31 Outpatient Desmond Rucker [id number] 00:00:00 00:00:00 [facility]n [facility] [place] 2018-12-30 2018-12-30 Outpatient Desmond Rucker [id number] 00:00:00 00:00:00 [facility]n [facility] [place] 2018-12-29 2018-12-29 Outpatient Desmond Rucker [id number] 00:00:00 00:00:00 [facility]n [facility] [place] 2018-12-28 2018-12-28 Outpatient Desmond Rucker [id number] 00:00:00 00:00:00 [facility]n [facility] [place] 2018-12-27 2018-12-27 Outpatient Desmond Rucker [id number] 00:00:00 00:00:00 [facility]n [facility] [place] 2018-12-26 2018-12-26 Outpatient Desmond Rucker [id number] 00:00:00 00:00:00 [facility]n [facility] [place] 2018-12-25 2018-12-25 Outpatient Desmond Rucker [id number] 00:00:00 00:00:00 [facility]n [facility] [place] 2018-12-24 2018-12-24 Outpatient Desmond Rucker [id number] 00:00:00 00:00:00 [facility]n [facility] [place] 2018-12-22 2018-12-22 Outpatient Desmond Rucker [id number] 00:00:00 00:00:00 [facility]n [facility] [place] 2018-12-21 2018-12-21 Outpatient Desmond Rucker [id number] 00:00:00 00:00:00 [facility]n [facility] [place] 2018-12-20 2018-12-20 Outpatient Desmond Rucker [id number] 00:00:00 00:00:00 [facility]n [facility] [place] 2018-12-18 2018-12-18 Outpatient Desmond Rucker [id number] 00:00:00 00:00:00 [facility]n [facility] [place] 2018-12-15 2018-12-15 Outpatient Desmond Rucker [id number] 00:00:00 00:00:00 [facility]n [facility] [place] 2018-12-11 2018-12-11 Outpatient Desmond Rucker [id number] 00:00:00 00:00:00 [facility]n [facility] [place] 2018-12-08 2018-12-08 Outpatient Desmond Rucker [id number] 00:00:00 00:00:00 [facility]n [facility] [place] 2018-12-04 2018-12-04 James Desmond Medellin 2 [id number] 00:00:00 00:00:00 Nely Iqbal [facility]n [facility] [place] 2018-12-01 2018-12-01 Outpatient Desmond Rucker [id number] 00:00:00 00:00:00 [facility]n [facility] [place] 2018-11-28 2018-11-28 Outpatient GersonDesmond goodmanmika n [id number] 00:00:00 00:00:00 Rasheed guidry [facility] [place] 2018-11-24 2018-11-24 Outpatient Desmond Rucker [id number] 00:00:00 00:00:00 [facility]n [facility] [place] 2018-11-22 2018-11-22 Outpatient Desmond Rucker [id number] 00:00:00 00:00:00 [facility]n [facility] [place] 2018-11-19 2018-11-19 Outpatient Desmond Rucker [id number] 00:00:00 00:00:00 [facility]n [facility] [place] 2018-11-17 2018-11-17 Outpatient Desmond Rucker [id number] 00:00:00 00:00:00 [facility]n [facility] [place] 2018-11-16 2018-11-16 Outpatient Desmond Rucker [id number] 00:00:00 00:00:00 [facility]n [facility] [place] 2018-11-15 2018-11-15 Outpatient Desmond Rucker [id number] 00:00:00 00:00:00 [facility]n [facility] [place] 2018-11-14 2018-11-14 Outpatient Desmond Rucker [id number] 00:00:00 00:00:00 [facility]n [facility] [place] 2018-11-13 2018-11-13 Outpatient Desmond Rucker [id number] 00:00:00 00:00:00 [facility]n [facility] [place] 2018-11-12 2018-11-12 Outpatient Desmond Rucker [id number] 00:00:00 00:00:00 [facility]n [facility] [place] 2018-11-11 2018-11-11 Outpatient Desmond Rucekr [id number] 00:00:00 00:00:00 [facility]n [facility] [place] 2018-11-10 2018-11-10 Outpatient Desmond Rucker [id number] 00:00:00 00:00:00 [facility]n [facility] [place] 2018-11-09 2018-11-09 Outpatient Desmond Rucker [id number] 00:00:00 00:00:00 [facility]n [facility] [place] 2018-11-08 2018-11-08 Outpatient Desmond Rucker [id number] 00:00:00 00:00:00 [facility]n [facility] [place] 2018-11-06 2018-11-06 Outpatient Desmond Rucker [id number] 00:00:00 00:00:00 [facility]n [facility] [place] 2018-11-03 2018-11-03 Outpatient Desmond Rucker [id number] 00:00:00 00:00:00 [facility]n [facility] [place] 2018-10-31 2018-10-31 JamesDesmond 20 [id number] 00:00:00 00:00:00 Nely Smith [facility] [place] 2018-10-30 2018-10-30 [facility] [id number] 00:00:00 00:00:00 9 2018-10-27 2018-10-27 Outpatient Desmond Rucker [id number] 00:00:00 00:00:00 [facility]n [facility] [place] 2018-10-22 2018-10-22 Outpatient Desmond Rucker [id number] 00:00:00 00:00:00 [facility]n [facility] [place] 2018-10-20 2018-10-20 Outpatient Desmond Rucker [id number] 00:00:00 00:00:00 [facility]n [facility] [place] 2018-10-17 2018-10-17 Outpatient Desmond Rucker [id number] 00:00:00 00:00:00 [facility]n [facility] [place] 2018-10-14 2018-10-14 Outpatient Desmond Rucker [id number] 00:00:00 00:00:00 [facility]n [facility] [place] 2018-10-13 2018-10-13 Outpatient Desmond Rucker [id number] 00:00:00 00:00:00 [facility]n [facility] [place] 2018-10-06 2018-10-06 Outpatient Desmond Rucker [id number] 00:00:00 00:00:00 [facility]n [facility] [place] 2018-09-25 2018-09-25 James Desmond Medellin 2 [id number] 00:00:00 00:00:00 Nely Iqbal rn [facility] [place] 2018-09-24 2018-09-24 Outpatient Desmond Medelliner n [id number] 00:00:00 00:00:00 Rasheed guidry [facility] [place] 2018-09-19 2018-09-19 Outpatient Desmond Medellin n [id number] 00:00:00 00:00:00 Rasheed guidry [facility] [place] 2018-09-16 2018-09-16 Outpatient Desmond Rucker [id number] 00:00:00 00:00:00 [facility]n [facility] [place] 2018-09-10 2018-09-10 Outpatient Desmond Rucker [id number] 00:00:00 00:00:00 [facility]n [facility] [place] 2018-09-08 2018-09-08 Outpatient Desmond Rucker [id number] 00:00:00 00:00:00 [facility]n [facility] 2018-09-07 2018-09-07 Outpatient Desmond Rucker [id number] 00:00:00 00:00:00 [facility]n [facility] 2018-09-06 2018-09-06 Outpatient Desmond Rucker [id number] 00:00:00 00:00:00 [facility]n [facility] 2018-09-05 2018-09-05 Outpatient Desmond Rucker [id number] 00:00:00 00:00:00 [facility]n [facility] 2018-09-04 2018-09-04 Outpatient Desmond Rucker [id number] 00:00:00 00:00:00 [facility]n [facility] 2018-09-03 2018-09-03 Outpatient Desmond Rucker [id number] 00:00:00 00:00:00 [facility]n [facility] 2018-09-02 2018-09-02 Outpatient Desmond Rucker [id number] 00:00:00 00:00:00 rn [facility] 2018-09-01 2018-09-01 Outpatient Desmond Rucekr [id number] 00:00:00 00:00:00 [facility]n [facility] 2018-08-31 2018-08-31 Outpatient Desmond Rucker [id number] 00:00:00 00:00:00 rn [facility] 2018-08-20 2018-08-20 [facility]ignesh [facility] 2 [id number] 00:00:00 00:00:00 Nely Iqbal rn [facility] 2018-08-19 2018-08-19 Outpatient Desmond Rucker [id number] 00:00:00 00:00:00 rn [facility] 2018-08-13 2018-08-13 Outpatient Desmond Rucker [id number] 00:00:00 00:00:00 rn [facility] 2018-08-08 2018-08-08 Outpatient Desmond Rucker [id number] 00:00:00 00:00:00 rn [facility] 2018-08-04 2018-08-04 Outpatient Desmond Rucker [id number] 00:00:00 00:00:00 rn [facility] 2018-07-31 2018-07-31 Outpatient GersonDesmond goodmanmika n [id number] 00:00:00 00:00:00 Rasheed guidry [facility] [place] 2018-07-29 2018-07-29 Outpatient Desmond Medellin n [id number] 00:00:00 00:00:00 [facility]heed [facility] 2018-07-24 2018-07-24 Outpatient Desmond Rucker [id number] 00:00:00 00:00:00 [facility]n [facility] 2018-07-23 2018-07-23 GerardoVignesh [facility] 2 [id number] 00:00:00 00:00:00 Yoly Iqbal rn [facility] 2018-07-23 2018-07-23 [facility] [id number] 00:00:00 00:00:00 6 2018-07-22 2018-07-22 Emergency [facility] [id number] 00:19:01 03:51:00 2018-07-22 2018-07-22 [facility] [id number] 00:00:00 00:00:00 4 2018-07-18 2018-07-18 Outpatient Desmond Rucker [id number] 00:00:00 00:00:00 [facility]n [facility] 2018-07-14 2018-07-14 Outpatient Desmond Medellin n [id number] 00:00:00 00:00:00 Rasheed guidry [facility] 2018-07-13 2018-07-13 Outpatient Desmond Rucker [id number] 00:00:00 00:00:00 [facility]n [facility] 2018-07-11 2018-07-11 Outpatient Desmond Medellin n [id number] 00:00:00 00:00:00 Rasheed guidry [facility] 2018-07-09 2018-07-09 Outpatient Desmond Medellin n [id number] 00:00:00 00:00:00 Rasheed guidry [facility] 2018-07-07 2018-07-07 Outpatient Desmond Medellin n [id number] 00:00:00 00:00:00 Rasheed guidry [facility] 2018-07-06 2018-07-06 Outpatient Desmond Rucker [id number] 00:00:00 00:00:00 [facility]n [facility] 2018-06-26 2018-06-26 Outpatient Desmond Medelliner n [id number] 00:00:00 00:00:00 Rasheed guidry [facility] 2018-06-25 2018-06-25 Vignesh Carrillo [facility] 2 [id number] 00:00:00 00:00:00 Yoly Iqbal rn [facility] 2018-06-24 2018-06-24 Outpatient Desmond Rucker [id number] 00:00:00 00:00:00 rn [facility] 2018-06-23 2018-06-23 Outpatient Desmond Rucker [id number] 00:00:00 00:00:00 [facility]n [facility] 2018-06-23 2018-06-23 [facility] [id number] 00:00:00 00:00:00 2 2018-06-23 2018-06-23 [facility] [id number] 00:00:00 00:00:00 6 2018-06-19 2018-06-19 Outpatient Desmond Rucker [id number] 00:00:00 00:00:00 [facility]n [facility] 2018-06-18 2018-06-18 Outpatient Desmond Rucker [id number] 00:00:00 00:00:00 [facility]n [facility] 2018-06-17 2018-06-17 Outpatient Desmond Rucker [id number] 00:00:00 00:00:00 [facility]n [facility] 2018-06-16 2018-06-16 Outpatient Desmond Rucker [id number] 00:00:00 00:00:00 [facility]n [facility] 2018-06-15 2018-06-15 Outpatient Desmond Rucker [id number] 00:00:00 00:00:00 [facility]n [facility] 2018-06-14 2018-06-14 Outpatient Desmond Rucker [id number] 00:00:00 00:00:00 rn [facility] 2018-06-12 2018-06-12 Outpatient Desmond Rucker [id number] 00:00:00 00:00:00 [facility]n [facility] 2018-06-11 2018-06-11 Outpatient Desmond Rucker [id number] 00:00:00 00:00:00 [facility]n [facility] 2018-05-29 2018-05-29 [facility] [id number] 00:00:00 00:00:00 3 2018-05-22 2018-05-22 Outpatient Desmond Rucker [id number] 00:00:00 00:00:00 [facility]n [facility] 2018-05-21 2018-05-21 Vignesh Carrillo [facility] 2 [id number] 00:00:00 00:00:00 Yoly Iqbal rn [facility] 2018-05-19 2018-05-19 [facility] [id number] 00:00:00 00:00:00 8 2018-05-14 2018-05-14 Outpatient Desmond Medelliner n [id number] 00:00:00 00:00:00 Rasheed guidry [facility] 2018-05-11 2018-05-11 Outpatient Desmond Rucker [id number] 00:00:00 00:00:00 [facility]n [facility] 2018-05-09 2018-05-09 Outpatient [facility] [id number] 00:00:00 00:00:00 _18 2018-05-08 2018-05-08 Outpatient Desmond Rucker [id number] 00:00:00 00:00:00 [facility]n [facility] 2018-05-07 2018-05-07 Outpatient [facility] [id number] 00:00:00 00:00:00 rn [facility] 2018-05-06 2018-05-06 Outpatient [facility] [id number] 00:00:00 00:00:00 rn [facility] 2018-05-05 2018-05-05 Outpatient [facility] [id number] 00:00:00 00:00:00 rn [facility] 2018-05-02 2018-05-02 Outpatient [facility] [id number] 00:00:00 00:00:00 rn [facility] 2018-05-01 2018-05-01 Outpatient [facility] [id number] 00:00:00 00:00:00 [facility]n [facility] 2018-04-30 2018-04-30 Outpatient [facility] [id number] 00:00:00 00:00:00 [facility]n [facility] 2018-04-26 2018-04-26 [facility] [id number] 00:00:00 00:00:00 7 2018-04-23 2018-04-23 Outpatient [facility] [id number] 14:50:57 23:59:00 _02 [id number] 2018-04-23 2018-04-23 [facility] [id number] 14:50:57 14:50:57 2 2018-04-23 2018-04-23 Outpatient [facility] [id number] 00:00:00 00:00:00 _[id number] 2018-04-23 [facility] [id number] 00:00:00 00:00:00 0 2018-04-23 2018-04-23 [facility] [id number] 00:00:00 00:00:00 9 2018-04-21 2018-04-22 Emergency REAGAN CHENG RUST [id number] 23:57:34 11:10:00 2018-04-21 2018-04-21 Emergency ER MAURILIOSONNYLuis, [facility] [id number] 21:26:42 23:01:00 REI _[id number] 2018-04-21 2018-04-21 Emergency [facility] [id number] 21:26:42 23:01:00 0 2018-04-21 2018-04-21 Emergency [facility] [id number] 21:53:13 21:53:13 _[id number] 2018-04-21 2018-04-21 Emergency ER [facility] [id number] 21:13:00 21:13:00 _[id number] 2018-03-19 2018-03-19 Outpatient EL [facility] [id number] 14:21:51 23:59:00 _[id number] 2018-03-19 2018-03-19 Outpatient [facility] [id number] 00:00:00 00:00:00 _[id number] 2018-03-17 2018-03-17 [facility] [id number] 00:00:00 00:00:00 7 2018-02-24 2018-02-24 Outpatient [facility] [id number] 00:00:00 00:00:00 [facility]n [facility] 2018-02-19 2018-02-19 Outpatient [facility] [id number] 00:00:00 00:00:00 rn [facility] 2018-02-19 2018-02-19 [facility] [id number] 00:00:00 00:00:00 3 2018-02-18 2018-02-18 Outpatient [facility] [id number] 00:00:00 00:00:00 rn [facility] 2018-02-18 2018-02-18 [facility] [id number] 00:00:00 00:00:00 2 2018-02-16 2018-02-16 Outpatient [facility] [id number] 00:00:00 00:00:00 rn [facility] 2018-02-07 2018-02-07 Outpatient [facility] [id number] 14:24:12 15:35:29 _[id number] 2018-02-07 2018-02-07 [facility] [id number] 14:24:12 15:35:29 6 2018-02-07 2018-02-07 Outpatient [facility] [id number] 00:00:00 00:00:00 _[id number] 2018-01-22 Outpatient [facility] [id number] 14:38:13 14:52:51 _[id number] 2018-01-22 2018-01-22 Outpatient [facility] [id number] 00:00:00 00:00:00 _[id number] 2018-01-21 [facility] [id number] 00:00:00 00:00:00 9 2018-01-16 2018-01-16 [facility] [id number] 00:00:00 00:00:00 2 2017-12-25 2017-12-25 Outpatient [facility] [id number] 14:20:03 14:31:39 _[id number] 2017-12-25 2017-12-25 Outpatient [facility] [id number] 00:00:00 00:00:00 _[id number] 2017-12-25 [facility] [id number] 00:00:00 00:00:00 1 2017-11-27 2017-11-27 [facility] [id number] 14:30:54 23:59:00 8 2017-11-27 2017-11-27 Outpatient [facility] [id number] 12:29:20 23:59:00 _[id number] 2017-11-27 2017-11-27 Outpatient EL SANDEEP [facility] [id number] 14:30:54 14:30:54 EV _[id number] 2017-11-27 2017-11-27 [facility] [id number] 12:29:20 13:30:00 3 2017-11-27 2017-11-27 Outpatient [facility] [id number] 00:00:00 00:00:00 _[id number] 2017-11-08 2017-11-08 Outpatient [facility] [id number] 09:49:36 11:59:53 _[id number] 2017-11-08 2017-11-08 [facility] [id number] 09:49:36 11:59:53 5 2017-11-08 2017-11-08 Outpatient [facility] [id number] 00:00:00 00:00:00 _[id number] 2017-10-30 [facility] [id number] 00:00:00 00:00:00 0 2017-10-27 2017-10-27 [facility] [id number] 00:00:00 00:00:00 2 2017-10-19 2017-10-26 Inpatient ER VENANCIO PENN [facility] [id number] 01:41:00 17:33:29 _[id number] 2017-10-19 2017-10-26 Inpatient [facility] [id number] 01:41:00 17:33:29 0 2017-10-24 2017-10-24 Out[facility] [id number] 00:00:00 00:00:00 2 2017-10-21 2017-10-21 Outpatient [facility] [id number] 00:00:00 00:00:00 6 2017-10-19 2017-10-19 Inpatient ER [facility] [id number] 02:38:37 23:59:00 _[id number] 2017-10-18 2017-10-18 Outpatient [facility] [id number] 00:00:00 00:00:00 6 2017-09-30 2017-09-30 Out[facility] [id number] 00:00:00 00:00:00 1 2017-09-25 2017-09-25 Outpatient [facility] [id number] 14:31:14 23:59:00 _[id number] 2017-09-25 2017-09-25 Outpatient [facility] [id number] 00:00:00 00:00:00 _[id number] 2017-09-23 2017-09-23 Out[facility] [id number] 00:00:00 00:00:00 1 2017-08-30 2017-08-30 Emergency ER REBEKAH [facility] [id number] 11:10:33 17:35:00 PUSHPA _[id number] 2017-08-30 2017-08-30 Emergency [facility] [id number] 11:10:33 17:35:00 1 2017-08-30 2017-08-30 Emergency [facility] [id number] 12:51:39 12:51:39 _[id number] 2017-08-30 2017-08-30 Emergency ER [facility] [id number] 11:04:00 11:04:00 _[id number] 2017-08-16 2017-08-16 Outpatient EL [facility] [id number] 12:55:00 15:51:46 _[id number] 2017-08-16 2017-08-16 Outpatient EL [facility] [id number] 00:00:00 00:00:00 _[id number] 2017-07-31 2017-07-31 Outpatient [facility] [id number] 14:21:17 23:59:00 _[id number] 2017-07-31 2017-07-31 Outpatient EL [facility] [id number] 00:00:00 00:00:00 _[id number] 2017-07-03 2017-07-03 Outpatient EL [facility] [id number] 15:42:13 23:59:00 _[id number] 2017-07-03 2017-07-03 Outpatient EL [facility] [id number] 00:00:00 00:00:00 _[id number] 2017-06-05 2017-06-05 Emergency ER AMANDA, [facility] [id number] 06:44:26 14:03:00 ADARSH _[id number] 2017-06-05 2017-06-05 Emergency [facility] [id number] 06:44:26 14:03:00 6 2017-06-05 2017-06-05 Emergency [facility] [id number] 12:18:51 12:18:51 _[id number] 2017-06-05 2017-06-05 Emergency [facility] [id number] 10:20:41 10:20:41 _[id number] 2017-06-05 2017-06-05 Emergency [facility] [id number] 08:47:27 08:47:27 _[id number] 2017-06-05 2017-06-05 Emergency ER [facility] [id number] 06:43:00 06:43:00 _[id number] 2017-06-05 2017-06-05 Emergency [facility] [id number] 00:00:00 00:00:00 _14 2017-05-17 2017-05-17 Outpatient EL [facility] [id number] 14:16:55 16:05:25 _[id number] 2017-05-17 2017-05-17 Outpatient [facility] [id number] 00:00:00 00:00:00 _[id number] 2017-05-01 2017-05-01 Outpatient EL [facility] [id number] 15:58:42 15:59:50 _[id number] 2017-05-01 2017-05-01 Outpatient EL [facility] [id number] 00:00:00 00:00:00 _[id number] 2017-04-07 2017-04-07 Emergency ER SANTA, [facility] [id number] 07:49:50 14:39:00 REI _[id number] 2017-04-07 2017-04-07 Emergency [facility] [id number] 07:49:50 14:39:00 5 2017-04-07 2017-04-07 Emergency [facility] [id number] 09:09:48 09:09:48 _[id number] 2017-04-07 2017-04-07 Emergency ER [facility] [id number] 07:43:00 07:43:00 _[id number] 2017-04-03 2017-04-03 Outpatient EL [facility] [id number] 15:11:06 15:34:58 _[id number] 2017-03-06 2017-03-06 Outpatient EL [facility] [id number] 15:03:04 15:14:10 _[id number] 2017-03-06 2017-03-06 Outpatient [facility] [id number] 00:00:00 00:00:00 _[id number] 2017-02-01 2017-02-01 Outpatient EL [facility] [id number] 14:03:12 15:33:51 _[id number] 2017-02-01 2017-02-01 Outpatient EL [facility] [id number] 00:00:00 00:00:00 _[id number] 2017-01-09 Outpatient [facility] [id number] 15:13:08 23:59:00 _[id number] 2016-12-04 2016-12-04 Outpatient Desmond Medellin [facility] [id number] 00:00:00 00:00:00 Rasheed guidry [facility] 2016-11-16 2016-11-16 Outpatient EL [facility] [id number] 13:40:12 16:32:07 _[id number] 2016-11-16 2016-11-16 Outpatient EL [facility] [id number] 00:00:00 00:00:00 _[id number] 2016-11-07 2016-11-07 Outpatient EL [facility] [id number] 00:00:00 23:59:00 _[id number] 2016-11-07 Outpatient EL [facility] [id number] 15:46:14 15:46:29 _[id number] 2016-11-02 2016-11-02 Outpatient [facility] [id number] 00:00:00 00:00:00 _[id number] 2016-10-22 Outpatient [facility] [id number] 00:00:00 00:00:00 rn [facility] 2016-10-19 2016-10-19 Outpatient [facility] [id number] 00:00:00 00:00:00 rn [facility] 2016-10-18 2016-10-18 Outpatient [facility] [id number] 00:00:00 00:00:00 rn [facility] Medical Oncology Oncology [facility] 2016-10-17 2016-10-17 Outpatient [facility] [id number] 00:00:00 00:00:[address] [facility] Oncology Oncology [facility] 2016-10-16 2016-10-16 Outpatient [facility] [id number] 00:00:00 00:00:[address] [facility] Oncology Oncology [facility] 2016-09-26 2016-10-03 Inpatient ER MARUCCI[facility] [id number] 18:04:54 15:51:24 JACKIE _[id number] 2016-09-26 2016-10-03 Outpatient [facility] [id number] 18:04:54 15:51:24 6 2016-09-26 2016-09-26 Emergency [facility] [id number] 19:54:45 23:59:00 _[id number] 2016-09-26 2016-09-26 Outpatient EL [facility] [id number] 15:50:56 23:59:00 _[id number] 2016-09-26 2016-09-26 Outpatient EL [facility] [id number] 15:50:56 23:59:00 _[id number] 2016-09-26 2016-09-26 Emergency ER [facility] [id number] 16:27:00 16:27:00 _[id number] 2016-09-26 2016-09-26 Outpatient EL [facility] [id number] 00:00:00 00:00:00 _[id number] 2016-08-29 2016-08-29 Outpatient EL [facility] [id number] 00:00:00 23:59:00 _[id number] 2016-08-03 2016-08-03 Outpatient [facility] [id number] 14:40:21 23:59:00 _[id number] 2016-08-03 2016-08-03 Outpatient [facility] [id number] 00:00:00 00:00:00 _[id number] 2016-08-01 2016-08-01 Outpatient EL [facility] [id number] 13:52:23 15:41:03 _[id number] 2016-08-01 2016-08-01 Outpatient EL [facility] [id number] 00:00:00 00:00:00 _[id number] 2016-06-27 Outpatient EL [facility] [id number] 15:29:27 15:30:22 _[id number] 2016-06-27 2016-06-27 Outpatient [facility] [id number] 00:00:00 00:00:00 _[id number] 2016-06-06 2016-06-06 Outpatient [facility] [id number] 13:07:02 14:34:48 _[id number] 2016-06-06 2016-06-06 Outpatient [facility] [id number] 00:00:00 00:00:00 _[id number] 2016-05-04 Outpatient [facility] [id number] 13:52:14 15:34:18 _[id number] 2016-05-04 2016-05-04 Outpatient [facility] [id number] 00:00:00 00:00:00 _[id number] 2016-03-07 2016-03-07 Outpatient [facility] [id number] 16:00:31 17:11:53 _[id number] 2016-03-07 2016-03-07 Outpatient EL [facility] [id number] 00:00:00 00:00:00 _[id number] 2016-02-13 Outpatient EL ATAGA, [facility] [id number] 15:17:48 23:59:00 SENG _[id number] 2016-01-23 2016-01-23 Outpatient EL [facility] [id number] 00:00:00 00:00:00 _[id number] 2016-01-19 Outpatient EL ATAGA, [facility] [id number] 12:10:45 15:48:28 SENG _[id number] 2016-01-19 2016-01-19 Outpatient EL [facility] [id number] 00:00:00 00:00:00 _[id number] 2015-12-20 2015-12-20 Outpatient EL ATAGA, [facility] [id number] 13:26:15 15:43:45 SENG _[id number] 2015-12-20 2015-12-20 Outpatient EL [facility] [id number] 00:00:00 00:00:00 _[id number] 2015-11-16 2015-11-16 Outpatient EL WARNER KYLE [facility] [id number] 15:16:44 23:59:00 ASIM _[id number] 2015-11-16 2015-11-16 Outpatient EL [facility] [id number] 00:00:00 00:00:00 _[id number] 2015-10-10 2015-10-24 Inpatient ER WARNER PAREDES [facility] [id number] 16:19:00 14:45:00 RADHADANIELA _[id number] 2015-10-10 2015-10-24 Outpatient [facility] [id number] 16:19:00 14:45:00 4 2015-10-12 2015-10-12 Inpatient [facility] [id number] 13:23:54 23:59:00 _[id number] 2015-10-10 2015-10-10 Emergency [facility] [id number] 18:14:43 23:59:00 _[id number] 2015-10-10 2015-10-10 Outpatient EL WARNER FRAZIER [facility] [id number] 13:15:13 23:59:00 SENG _[id number] 2015-10-10 2015-10-10 Outpatient EL WARNER FRAZIER [facility] [id number] 13:15:13 23:59:00 SENG _[id number] 2015-10-10 2015-10-10 Emergency ER [facility] [id number] 14:43:00 14:43:00 _[id number] 2015-10-10 2015-10-10 Outpatient EL [facility] [id number] 00:00:00 00:00:00 _[id number] 2015-10-08 2015-10-08 Emergency [facility] [id number] 14:57:34 23:59:00 _[id number] 2015-10-08 2015-10-08 Emergency ER WARNER DONOVAN [facility] [id number] 13:44:43 21:27:00 [place] _[id number] 2015-10-08 2015-10-08 Emergency ER WARNER DONOVAN [facility] [id number] 13:44:43 21:27:00 [place] _[id number] 2015-10-08 2015-10-08 Outpatient [facility] [id number] 13:44:43 21:27:00 8 2015-10-08 2015-10-08 Emergency [facility] [id number] 14:57:34 14:57:34 _[id number] 2015-10-08 2015-10-08 Emergency ER [facility] [id number] 13:29:00 13:29:00 _[id number] 2015-09-13 2015-09-13 Outpatient [facility] [id number] 00:00:00 23:59:00 _[id number] 2015-09-13 2015-09-13 Outpatient EL ATAGA, [facility] [id number] 11:46:27 13:58:10 CONRATH _[id number] 2015-08-27 2015-08-29 Inpatient ER GAR, [facility] [id number] 17:06:53 19:10:04 [facility] _[id number] 2015-08-27 2015-08-29 Outpatient [facility] [id number] 17:06:53 19:10:04 1 2015-08-27 2015-08-27 Emergency [facility] [id number] 18:12:36 18:12:36 _[id number] 2015-08-27 2015-08-27 Emergency ER [facility] [id number] 17:00:00 17:00:00 _[id number] 2015-08-03 2015-08-04 Outpatient EL ATAGA, [facility] [id number] 14:57:47 13:24:05 SENG _[id number] 2015-08-03 2015-08-03 Outpatient EL ATAGA, [facility] [id number] 14:57:20 15:15:17 SENG _[id number] 2015-08-03 2015-08-03 Outpatient EL [facility] [id number] 00:00:00 00:00:00 _[id number] 2015-07-06 2015-07-06 Outpatient EL ATAGA, [facility] [id number] 14:02:16 14:02:16 SENG _[id number] 2015-07-06 2015-07-06 Outpatient [facility] [id number] 00:00:00 00:00:00 _[id number] 2014-10-05 2014-10-05 Outpatient [facility] [id number] 00:00:00 00:00:00 rn [facility] 2014-10-02 2014-10-02 Outpatient [facility] [id number] 00:00:00 00:00:00 rn [facility] 2014-09-29 2014-09-29 Outpatient [facility] [id number] 00:00:00 00:00:00 rn [facility] 2014-09-24 2014-09-24 [facility] [id number] 00:00:00 00:00:00 rn [facility] 2014-09-23 2014-09-23 Outpatient [facility] [id number] 00:00:00 00:00:00 rn [facility] 2014-09-22 2014-09-22 Outpatient [facility] [id number] 00:00:00 00:00:00 rn [facility] 2014-09-21 2014-09-21 Outpatient [facility] [id number] 00:00:00 00:00:00 rn [facility] 2014-09-20 2014-09-20 Outpatient [facility] [id number] 00:00:00 00:00:00 rn [facility] 2014-04-09 2014-04-09 Outpatient [facility] [id number] 00:00:00 00:00:00 rn [facility] 2014-04-08 2014-04-08 [facility] [id number] 00:00:00 00:00:00 rn [facility] Immunizations Ordered Immunization Filled Immunization Date Status Commen ts Refusal Reason Name Name Influenza Vaccine Quad 2018-02-07 Completed (IIV4 PF) 6mo+ 00:00:00 injectable Influenza Vaccine Quad 2017-05-17 Completed (IIV4 PF) 6mo+ 00:00:00 injectable Influenza TRI (IIV3) 2014-02-02 Completed 4+yrs PF 00:00:00 Pneumococcal Conjugate 2014-02-02 Completed 13-Valent 00:00:00 Meningococcal C 2014-02-02 Completed Conjugate 00:00:00 Influenza TRI (IIV3) 2014-02-02 Completed 4+yrs PF 00:00:00 INFLUENZA TIV (TRI) PF 2013-04-21 Completed (IM) 00:00:00 PNEUMOCOCCAL 2011-11-06 Completed POLYSACCHARIDE 23 00:00:00 Hepatitis A 2010-01-05 Completed 00:00:00 Meningococcal 2010-01-05 Completed Polysaccharide (MPSV4) 00:00:00 Poliovirus, 2010-01-05 Completed inactivated (IPV) 00:00:00 Typhoid Live, Oral 2010-01-05 Completed 00:00:00 Payers Payer Name Policy Type Policy Number Effective Date Expiration D ate MEDICARE PART A AND [id number] 2003 00:00:00 [place] B [place] [id number] 2017 00:00:00 Plan of Treatment Planned Activity Planned Date Details Comments Future Scheduled Test [code = ] Future Scheduled Test [code = ] Future Scheduled Test [code = ] Future Scheduled Test [code = ] Future Scheduled Test [code = ] Future Scheduled Test [code = ] Future Scheduled Test [code = ] Future Scheduled Test [code = ] Future Scheduled Test [code = ] Future Scheduled Test [code = ] Future Scheduled Test [code = ] Future Scheduled Test [code = ] Future Scheduled Test [code = ] Future Scheduled Test [code = ] Future Scheduled Test [code = ] Future Scheduled Test [code = ] Future Scheduled Test [code = ] Future Scheduled Test [code = ] Future Scheduled Test [code = ] Future Scheduled Test [code = ] Future Scheduled Test [code = ] Future Scheduled Test [code = ] Future Scheduled Test [code = ] Future Scheduled Test [code = ] Future Scheduled Test [code = ] Future Scheduled Test [code = ] Future Scheduled Test [code = ] Future Scheduled Test [code = ] Future Scheduled Test [code = ] Future Scheduled Test [code = ] Future Scheduled Test [code = ] Future Scheduled Test [code = ] Future Scheduled Test [code = ] Future Scheduled Test [code = ] Future Scheduled Test [code = ] Future Scheduled Test [code = ] Future Scheduled Test [code = ] Future Scheduled Test [code = ] Future Scheduled Test [code = ] Future Scheduled Test [code = ] Future Scheduled Test [code = ] Social History Social Habit Start Date Stop Date Comments Tobacco smoking status NHIS 2018-04-21 00:00:00 2018-04-21 00:00 :00 Cigarettes smoked current (pack per 2018-04-21 00:00:00 00:00:00 day) - Reported Cigarette pack-years 2018-04-21 00:00:00 2018-04-21 00:00:00 Alcohol intake 2018-04-21 00:00:00 2018-04-21 00:00:00 ASSERTION 2016-09-26 00:00:00 2011-07-28 00:00:00 History of tobacco use 2011-07-28 00:00:00 Smoking Status Start Date Stop Date Never 2020-01-19 00:00:00 Social History Observation Description Sex Male Vital Signs Vital Name Observation Time Observation Value Comments Heart rate 2018-07-22 03:50:00 66 /min Body temperature 2018-07-22 03:50:00 36.78 Susie Respiratory rate 2018-07-22 03:50:00 20 /min Oxygen saturation in Arterial blood by 2018-07-22 03:50:00 99 % Pulse oximetry Systolic blood pressure 2018-07-22 03:00:00 131 mm[Hg] Diastolic blood pressure 2018-07-22 03:00:00 76 mm[Hg] Body height 2018-07-21 22:37:00 182.9 cm Body weight 2018-07-21 22:37:00 80.74 kg BMI 2018-07-21 22:37:00 24.14 kg/m2 BMI 2020-01-19 15:01:07 26.6600 BP rucker 2020-01-19 15:01:07 77.0000 mm[Hg] Bdy height 2020-01-19 15:01:07 72.0000 [in_i] SaO2% BldA PulseOx 2020-01-19 15:01:07 97.0000 % Heart rate 2020-01-19 15:01:07 80.0000 /min Resp rate 2020-01-19 15:01:07 18.0000 /min BP sys 2020-01-19 15:01:07 120.0000 mm[Hg] Body temperature 2020-01-19 15:01:07 97.2000 [degF] Weight 2020-01-19 15:01:07 196.6000 [lb_av] BMI 2019-09-18 13:55:38 26.9100 BP rucker 2019-09-18 13:55:38 82.0000 mm[Hg] Bdy height 2019-09-18 13:55:38 72.0000 [in_i] SaO2% BldA PulseOx 2019-09-18 13:55:38 98.0000 % Heart rate 2019-09-18 13:55:38 91.0000 /min Resp rate 2019-09-18 13:55:38 16.0000 /min BP sys 2019-09-18 13:55:38 126.0000 mm[Hg] Body temperature 2019-09-18 13:55:38 97.3000 [degF] Weight 2019-09-18 13:55:38 198.4000 [lb_av] BMI 2019-06-24 09:03:52 25.6100 BP rucker 2019-06-24 09:03:52 81.0000 mm[Hg] Bdy height 2019-06-24 09:03:52 72.0000 [in_i] SaO2% BldA PulseOx 2019-06-24 09:03:52 95.0000 % Heart rate 2019-06-24 09:03:52 70.0000 /min Resp rate 2019-06-24 09:03:52 18.0000 /min BP sys 2019-06-24 09:03:52 126.0000 mm[Hg] Body temperature 2019-06-24 09:03:52 98.1000 [degF] Weight 2019-06-24 09:03:52 188.8000 [lb_av] BMI 2019-04-20 14:39:46 26.6600 BP rucker 2019-04-20 14:39:46 64.0000 mm[Hg] Bdy height 2019-04-20 14:39:46 72.0000 [in_i] SaO2% BldA PulseOx 2019-04-20 14:39:46 97.0000 % Heart rate 2019-04-20 14:39:46 84.0000 /min Resp rate 2019-04-20 14:39:46 15.0000 /min BP sys 2019-04-20 14:39:46 144.0000 mm[Hg] Body temperature 2019-04-20 14:39:46 97.2000 [degF] Weight 2019-04-20 14:39:46 196.6000 [lb_av] BMI 2019-03-12 13:38:01 25.1200 BP rucker 2019-03-12 13:38:01 65.0000 mm[Hg] Bdy height 2019-03-12 13:38:01 72.0000 [in_i] SaO2% BldA PulseOx 2019-03-12 13:38:01 95.0000 % Heart rate 2019-03-12 13:38:01 81.0000 /min Resp rate 2019-03-12 13:38:01 14.0000 /min BP sys 2019-03-12 13:38:01 109.0000 mm[Hg] Body temperature 2019-03-12 13:38:01 97.5000 [degF] Weight 2019-03-12 13:38:01 185.2000 [lb_av] BMI 2019-01-16 14:25:04 24.5500 BP rucker 2019-01-16 14:25:04 84.0000 mm[Hg] Bdy height 2019-01-16 14:25:04 72.0000 [in_i] SaO2% BldA PulseOx 2019-01-16 14:25:04 97.0000 % Heart rate 2019-01-16 14:25:04 92.0000 /min Resp rate 2019-01-16 14:25:04 16.0000 /min BP sys 2019-01-16 14:25:04 124.0000 mm[Hg] Body temperature 2019-01-16 14:25:04 99.3000 [degF] Weight 2019-01-16 14:25:04 181.0000 [lb_av] BMI 2018-12-04 11:48:12 26.3700 BP rucker 2018-12-04 11:48:12 93.0000 mm[Hg] Bdy height 2018-12-04 11:48:12 72.0000 [in_i] SaO2% BldA PulseOx 2018-12-04 11:48:12 97.0000 % Heart rate 2018-12-04 11:48:12 68.0000 /min Resp rate 2018-12-04 11:48:12 18.0000 /min BP sys 2018-12-04 11:48:12 130.0000 mm[Hg] Body temperature 2018-12-04 11:48:12 97.1000 [degF] Weight 2018-12-04 11:48:12 194.4000 [lb_av] BMI 2018-10-31 14:37:05 25.6300 BP rucker 2018-10-31 14:37:05 72.0000 mm[Hg] Bdy height 2018-10-31 14:37:05 72.0000 [in_i] SaO2% BldA PulseOx 2018-10-31 14:37:05 95.0000 % Heart rate 2018-10-31 14:37:05 69.0000 /min Resp rate 2018-10-31 14:37:05 18.0000 /min BP sys 2018-10-31 14:37:05 119.0000 mm[Hg] Body temperature 2018-10-31 14:37:05 97.6000 [degF] Weight 2018-10-31 14:37:05 189.0000 [lb_av] BMI 2018-09-25 13:19:20 25.7400 BP rucker 2018-09-25 13:19:20 95.0000 mm[Hg] Bdy height 2018-09-25 13:19:20 72.0000 [in_i] SaO2% BldA PulseOx 2018-09-25 13:19:20 95.0000 % Heart rate 2018-09-25 13:19:20 80.0000 /min Resp rate 2018-09-25 13:19:20 18.0000 /min BP sys 2018-09-25 13:19:20 150.0000 mm[Hg] Body temperature 2018-09-25 13:19:20 98.8000 [degF] Weight 2018-09-25 13:19:20 189.8000 [lb_av] BMI 2018-08-20 11:54:02 24.8500 BP rucker 2018-08-20 11:54:02 84.0000 mm[Hg] Bdy height 2018-08-20 11:54:02 72.0000 [in_i] SaO2% BldA PulseOx 2018-08-20 11:54:02 94.0000 % Heart rate 2018-08-20 11:54:02 73.0000 /min Resp rate 2018-08-20 11:54:02 19.0000 /min BP sys 2018-08-20 11:54:02 139.0000 mm[Hg] Body temperature 2018-08-20 11:54:02 97.2000 [degF] Weight 2018-08-20 11:54:02 183.2000 [lb_av] BMI 2018-07-23 10:36:30 24.4100 BP rucker 2018-07-23 10:36:30 83.0000 mm[Hg] Bdy height 2018-07-23 10:36:30 72.0000 [in_i] Heart rate 2018-07-23 10:36:30 74.0000 /min Resp rate 2018-07-23 10:36:30 16.0000 /min BP sys 2018-07-23 10:36:30 129.0000 mm[Hg] Body temperature 2018-07-23 10:36:30 97.4000 [degF] Weight 2018-07-23 10:36:30 180.0000 [lb_av] BMI 2018-07-07 15:00:13 24.7700 BP rucker 2018-07-07 15:00:13 82.0000 mm[Hg] Bdy height 2018-07-07 15:00:13 72.0000 [in_i] SaO2% BldA PulseOx 2018-07-07 15:00:13 92.0000 % Heart rate 2018-07-07 15:00:13 68.0000 /min Resp rate 2018-07-07 15:00:13 20.0000 /min BP sys 2018-07-07 15:00:13 134.0000 mm[Hg] Body temperature 2018-07-07 15:00:13 98.8000 [degF] Weight 2018-07-07 15:00:13 182.6000 [lb_av] BMI 2018-06-25 14:21:42 24.8200 BP rucker 2018-06-25 14:21:42 70.0000 mm[Hg] Bdy height 2018-06-25 14:21:42 72.0000 [in_i] SaO2% BldA PulseOx 2018-06-25 14:21:42 95.0000 % Heart rate 2018-06-25 14:21:42 84.0000 /min Resp rate 2018-06-25 14:21:42 16.0000 /min BP sys 2018-06-25 14:21:42 108.0000 mm[Hg] Body temperature 2018-06-25 14:21:42 97.3000 [degF] Weight 2018-06-25 14:21:42 183.0000 [lb_av] BMI 2018-05-21 16:16:17 24.6800 BP rucker 2018-05-21 16:16:17 64.0000 mm[Hg] Bdy height 2018-05-21 16:16:17 72.0000 [in_i] Heart rate 2018-05-21 16:16:17 78.0000 /min Resp rate 2018-05-21 16:16:17 16.0000 /min BP sys 2018-05-21 16:16:17 107.0000 mm[Hg] Body temperature 2018-05-21 16:16:17 97.7000 [degF] Weight 2018-05-21 16:16:17 182.0000 [lb_av] SYSTOLIC BLOOD PRESSURE 2018-04-21 23:00:00 141 mm[Hg] DIASTOLIC BLOOD PRESSURE 2018-04-21 23:00:00 90 mm[Hg] HEART RATE 2018-04-21 23:00:00 95 /min BODY TEMPERATURE 2018-04-21 23:00:00 36.78 Susie RESPIRATORY RATE 2018-04-21 23:00:00 18 /min OXYGEN SATURATION 2018-04-21 23:00:00 98 % SYSTOLIC BLOOD PRESSURE 2018-02-07 14:26:00 120 mm[Hg] DIASTOLIC BLOOD PRESSURE 2018-02-07 14:26:00 80 mm[Hg] HEART RATE 2018-02-07 14:26:00 59 /min BODY TEMPERATURE 2018-02-07 14:26:00 36.78 Susie RESPIRATORY RATE 2018-02-07 14:26:00 18 /min HEIGHT 2018-02-07 14:26:00 182.9 cm WEIGHT 2018-02-07 14:26:00 79.107 kg OXYGEN SATURATION 2018-02-07 14:26:00 97 % SYSTOLIC BLOOD PRESSURE 2017-11-27 12:45:00 131 mm[Hg] DIASTOLIC BLOOD PRESSURE 2017-11-27 12:45:00 81 mm[Hg] HEART RATE 2017-11-27 12:45:00 62 /min BODY TEMPERATURE 2017-11-27 12:45:00 37.06 Susie RESPIRATORY RATE 2017-11-27 12:45:00 20 /min HEIGHT 2017-11-27 12:45:00 182.9 cm WEIGHT 2017-11-27 12:45:00 80.468 kg OXYGEN SATURATION 2017-11-27 12:45:00 98 % SYSTOLIC BLOOD PRESSURE 2017-11-08 10:12:00 117 mm[Hg] DIASTOLIC BLOOD PRESSURE 2017-11-08 10:12:00 83 mm[Hg] HEART RATE 2017-11-08 10:12:00 59 /min BODY TEMPERATURE 2017-11-08 10:12:00 36.67 Susie RESPIRATORY RATE 2017-11-08 10:12:00 18 /min HEIGHT 2017-11-08 10:12:00 182.9 cm WEIGHT 2017-11-08 10:12:00 80.967 kg OXYGEN SATURATION 2017-11-08 10:12:00 98 % SYSTOLIC BLOOD PRESSURE 2017-10-26 15:23:00 124 mm[Hg] DIASTOLIC BLOOD PRESSURE 2017-10-26 15:23:00 80 mm[Hg] HEART RATE 2017-10-26 15:23:00 72 /min BODY TEMPERATURE 2017-10-26 15:23:00 36.39 Susie RESPIRATORY RATE 2017-10-26 15:23:00 16 /min OXYGEN SATURATION 2017-10-26 15:23:00 97 % WEIGHT 2017-10-24 18:00:00 81.92 kg SYSTOLIC BLOOD PRESSURE 2017-08-30 16:16:00 126 mm[Hg] DIASTOLIC BLOOD PRESSURE 2017-08-30 16:16:00 81 mm[Hg] HEART RATE 2017-08-30 16:16:00 50 /min BODY TEMPERATURE 2017-08-30 16:16:00 36.22 Susie RESPIRATORY RATE 2017-08-30 16:16:00 18 /min OXYGEN SATURATION 2017-08-30 16:16:00 96 % WEIGHT 2017-08-30 11:38:00 80.74 kg SYSTOLIC BLOOD PRESSURE 2017-06-05 14:02:00 137 mm[Hg] DIASTOLIC BLOOD PRESSURE 2017-06-05 14:02:00 90 mm[Hg] HEART RATE 2017-06-05 14:02:00 65 /min BODY TEMPERATURE 2017-06-05 14:02:00 36.72 Susie RESPIRATORY RATE 2017-06-05 14:02:00 16 /min OXYGEN SATURATION 2017-06-05 14:02:00 100 % SYSTOLIC BLOOD PRESSURE 2017-04-07 13:39:00 134 mm[Hg] DIASTOLIC BLOOD PRESSURE 2017-04-07 13:39:00 80 mm[Hg] HEART RATE 2017-04-07 13:39:00 53 /min RESPIRATORY RATE 2017-04-07 13:39:00 14 /min OXYGEN SATURATION 2017-04-07 13:39:00 98 % BODY TEMPERATURE 2017-04-07 07:49:00 36.5 Susie SYSTOLIC BLOOD PRESSURE 2016-10-03 13:32:00 128 mm[Hg] DIASTOLIC BLOOD PRESSURE 2016-10-03 13:32:00 72 mm[Hg] HEART RATE 2016-10-03 13:32:00 57 /min BODY TEMPERATURE 2016-10-03 13:32:00 36.28 Susie RESPIRATORY RATE 2016-10-03 13:32:00 16 /min OXYGEN SATURATION 2016-10-03 13:32:00 98 % HEIGHT 2016-09-26 23:42:00 182.9 cm WEIGHT 2016-09-26 23:42:00 80.332 kg SYSTOLIC BLOOD PRESSURE 2015-10-24 12:07:00 127 mm[Hg] DIASTOLIC BLOOD PRESSURE 2015-10-24 12:07:00 77 mm[Hg] HEART RATE 2015-10-24 12:07:00 75 /min BODY TEMPERATURE 2015-10-24 12:07:00 36.39 Susie RESPIRATORY RATE 2015-10-24 12:07:00 18 /min OXYGEN SATURATION 2015-10-24 12:07:00 100 % WEIGHT 2015-10-23 05:16:00 82.1 kg HEIGHT 2015-10-11 01:17:00 182.9 cm SYSTOLIC BLOOD PRESSURE 2015-10-08 20:37:00 129 mm[Hg] DIASTOLIC BLOOD PRESSURE 2015-10-08 20:37:00 89 mm[Hg] HEART RATE 2015-10-08 20:37:00 57 /min BODY TEMPERATURE 2015-10-08 20:37:00 36.89 Susie RESPIRATORY RATE 2015-10-08 20:37:00 16 /min OXYGEN SATURATION 2015-10-08 20:37:00 99 % SYSTOLIC BLOOD PRESSURE 2015-08-29 18:54:00 163 mm[Hg] DIASTOLIC BLOOD PRESSURE 2015-08-29 18:54:00 90 mm[Hg] HEART RATE 2015-08-29 18:54:00 77 /min BODY TEMPERATURE 2015-08-29 18:54:00 36.5 Susie RESPIRATORY RATE 2015-08-29 18:54:00 20 /min OXYGEN SATURATION 2015-08-29 18:54:00 95 % HEIGHT 2015-08-28 02:32:00 182.9 cm WEIGHT 2015-08-28 02:32:00 79.289 kg
== END 2020-03-02 10:20 | disposition home or self-care (01) ==
LOC: II 08:38 → 5TH 08:41 → II 10:20
PROVIDERS: ATTEND Internal Medicine
DX: D57.1 Sickle-cell disease without crisis (principal); E86.0 Dehydration; R52 Pain, unspecified
CPT/HCPCS: 96365; 96375; 96361; J1200; J1170; J1642

== ENCOUNTER 2020-03-04 08:54 | Outpatient (CLI) | payer MEDICARE, MEDICAID ==
[~2020-03-04 08:54] MED LIST changes: +NORMAL SALINE 1000 ML 2,000 ML IV PRN
[2020-03-04 09:07] VITALS: BP 126/80
[2020-03-04] MEDS ORDERED: INFLUENZA QUAD (6MOS+) 2020-21 VAC 0.5 ML SYR IM ONE (11:15)
[2020-03-05] MEDS ORDERED: INFLUENZA QUAD (6MOS+) 2020-21 VAC 0.5 ML SYR IM ONE (08:00)
--- OUTSIDE RECORDS SUMMARY | 2020-03-07 09:38 | XMS REPORT ---
:1980 Author Organization [facility] Address [facility] [place] [address] [place] [address] Care Team Providers Name Role Phone NONE [...] (Finding) (Ingredien t(s): ketorolac tromethami ne) Latex [id number] Active Levaquin Allergy to Active (Ingredien Drug [...] 00 crisis by mouth total) by release ([facility]) every mouth tablet eight (8) every hours as eight (8) needed for hours as pain. needed for pain. methadone Yes Hb-SS 5mg Take 1 Take 1 (DOLOPHINE) 4-06 disease tablet (5 ta blet (5 5 MG tablet 00:00: without mg total) m g total) 00 crisis by mouth by mouth ([facility]) Two (2) Two (2) times a times [...] total) 00 crisis by mouth by mouth ([facility]) daily. daily. hydroxyurea Yes Hb-SS Take 1500 Allen e 1500 (HYDREA) 4-02 disease mg by mg by 500 mg 00:00: without mouth mouth capsule 00 crisis daily daily ([facility]) baclofen Yes Priapism 10mg Take 1 Take [...] Hb-SS 5MG Take 1 Take 1 (DOLOPHINE) 06 disease tablet (5 ta blet (5 5 MG tablet 00:00: without mg total) m g total) 00 crisis by mouth by mouth ([facility] Two (2) Two (2) times a times a day. One day. One month month supply. supply. oxyCODONE No Hb-SS 10MG Take 1 Take 1 (ROXICODONE 06 disease tablet (10 t ablet ) 10 mg 00:00: without mg total) (10 m g immediate 00 crisis by mouth total) by release ([facility] every mouth tablet eight (8) every hours as eight (8) needed for hours as pain. needed for pain. OxyCODONE Yes 1 HCl 06 00:00: 00 Hydration 2019- No 2000mL 1000mL NS 06-25 10-10 00:00: 00:00 00 :00 methadone 2018- No Hb-SS 5MG Take 1 Take 1 (DOLOPHINE) 06-25 04 disease tablet (5 ta blet (5 5 MG tablet 00:00: 00:00 without mg total) m g total) 00 :00 crisis by mouth by mouth ([facility]) Two (2) Two (2) times a times a day. One day. One month month supply. supply. oxyCODONE 2018- No Hb-SS 10MG Take 1 Take 1 (ROXICODONE 06-25 04-02 disease tablet (10 t ablet ) 10 mg 00:00: 00:00 without mg total) (10 m g immediate 00 :00 crisis by mouth total) by release ([facility] every mouth tablet eight (8) every hours [...] mg 00 crisis total) by total) by ([facility]) mouth mouth every six every six (6) [...] 00 :00 crisis by mouth by mouth ([facility]) daily. daily. hydroxyurea 2018- No Hb-SS Take 1500 Allen e 1500 (HYDREA) 05-29 disease mg by mg by 500 mg 00:00: 00:00 without mouth mouth capsule 00 :00 crisis daily daily ([facility]) terbutaline 2018- No 5mg Take 1 Take [...] 00 :00 crisis by mouth by mouth ([facility]) Two (2) Two (2) times a times a day. One day. One month month supply. supply. oxyCODONE 2018- No Hb-SS 10MG Take 1 Take 1 (ROXICODONE 05-29 disease tablet (10 t ablet ) 10 mg 00:00: 00:00 without mg total) (10 m g immediate 00 :00 crisis by mouth total) by release ([facility]) every mouth tablet eight (8) every hours [...] 00 :00 crisis by mouth by mouth ([facility]) Two (2) Two (2) times a times a day. One day. One month month supply. supply. oxyCODONE 2018- No Hb-SS 10MG Take 1 Take 1 (ROXICODONE 04-23 disease tablet (10 t ablet ) 10 mg 00:00: 00:00 without mg total) (10 m g immediate 00 :00 crisis by mouth total) by release ([facility]) every mouth tablet eight (8) every hours as eight (8) needed for hours as pain. needed for pain. hydroxyurea 2018- No Hb-SS Take 1500 Allen e 1500 (HYDREA) 04-23 disease mg by mg by 500 mg 00:00: 00:00 without mouth mouth capsule 00 :00 crisis daily daily ([facility]) methadone 2017-04- No Hb-SS 5MG Take 1 Take 1 (DOLOPHINE) 05-26 disease tablet (5 ta blet (5 5 MG tablet 00:00: 00:00 without mg total) m g total) 00 :00 crisis by mouth by mouth ([facility]) Two (2) Two (2) times a times a day. One day. One month month supply. supply. oxyCODONE 2017-04- No Hb-SS 10MG Take 1 Take 1 (ROXICODONE 2-07 21- disease tablet (10 t ablet ) 10 mg 00:00: 00:00 without mg total) (10 m g immediate 00 :00 crisis by mouth total) by release ([facility]) every mouth tablet eight (8) every hours [...] 00 :00 crisis total) by total) by ([facility]) mouth mouth every six every six (6) hours (6) hours as needed as needed for pain. for pain. hydroxyurea 2017-04- No Hb-SS Take 1500 Allen e 1500 (HYDREA) 05-17 disease mg by mg by 500 mg 00:00: 00:00 without mouth mouth capsule 00 :00 crisis daily daily ([facility]) methadone 2017-04 No Hb-SS 5MG Take 1 Take 1 (DOLOPHINE) 04-23 disease tablet (5 ta blet (5 5 MG tablet 00:00: without mg total) m g total) 00 crisis by mouth by mouth ([facility]) Two (2) Two (2) times a times a day. One day. One month month supply. supply. oxyCODONE 2017-04 No Hb-SS 10MG Take 1 Take 1 (ROXICODONE 0-30 disease tablet (10 t ablet ) 10 mg 00:00: without mg total) (10 m g immediate 00 crisis by mouth total) by release ([facility]) every mouth tablet eight (8) every hours [...] mouth capsule 00 :00 crisis daily daily ([facility]) methadone 2017-04- No Hb-SS 5MG Take 1 Take 1 (DOLOPHINE) 0-02 10-30 disease tablet (5 ta blet (5 5 MG tablet 00:00: 00:00 without mg total) m g total) 00 :00 crisis by mouth by mouth ([facility]) Two (2) Two (2) times a times a day. One day. One month month supply. supply. oxyCODONE 2017-04- No Hb-SS 10MG Take 1 Take 1 (ROXICODONE 0-02 10-30 disease tablet (10 t ablet ) 10 mg 00:00: 00:00 without mg total) (10 m g immediate 00 :00 crisis by mouth total) by release ([facility]) every mouth tablet eight (8) every hours as eight (8) needed for hours as pain. needed for pain. IBU 600 mg 2017- No Hb-SS TAKE 1 TAKE 1 tablet 01-16 11- disease TABLET BY TABLET BY 00:00: 00:00 without MOUTH MOUTH 00 :00 crisis EVERY 6 EVERY 6 ([facility]) HOURS HOURS A S NEEDED FOR NEEDED PAIN FOR PAIN folic acid 2018- No Hb-SS 1MG Take 1 Take 1 (FOLVITE) 1 12-25 disease tablet (1 ta blet (1 MG tablet 00:00: 00:00 without mg total) mg total) 00 :00 crisis by mouth by mouth ([facility]) daily. daily. hydroxyurea No Hb-SS Take 1500 Allen e 1500 (HYDREA) 12-25 disease mg by mg by 500 mg 00:00: 00:00 without mouth mouth capsule 00 :00 crisis daily daily ([facility]) methadone 2017- No Hb-SS 5MG Take 1 Take 1 (DOLOPHINE) 12-25 disease tablet (5 ta blet (5 5 MG tablet 00:00: 00:00 without mg total) m g total) 00 :00 crisis by mouth by mouth ([facility]) Two (2) Two (2) times a times a day. One day. One month month supply. supply. oxyCODONE No Hb-SS 10MG Take 1 Take 1 (ROXICODONE 12-25 disease tablet (10 t ablet ) 10 mg 00:00: 00:00 without mg total) (10 m g immediate 00 :00 crisis by mouth total) by release ([facility]) every mouth tablet eight (8) every hours as eight (8) needed for hours as pain. needed for pain. hydroxyurea No Hb-SS Take 1500 Allen e 1500 (HYDREA) 11-27 disease mg by mg by 500 mg 00:00: 00:00 without mouth mouth capsule 00 :00 crisis daily daily ([facility]) oxyCODONE 2017- No Hb-SS 10mg Take 1 Take 1 (ROXICODONE 11-27 disease tablet (10 t ablet ) 10 mg 00:00: 00:00 without mg total) (10 m g immediate 00 :00 crisis by mouth total) by release ([facility]) every mouth tablet eight (8) every hours as eight (8) needed for hours as pain. needed for pain. folic acid 2017- No Hb-SS 1mg Take 1 Take 1 (FOLVITE) 1 11-27 disease tablet (1 ta blet (1 MG tablet 00:00: 00:00 without mg total) mg total) 00 :00 crisis by mouth by mouth ([facility]) daily. daily. methadone 2017- No Hb-SS 5mg Take 1 Take 1 (DOLOPHINE) 11-27 disease tablet (5 ta blet (5 5 MG tablet 00:00: 00:00 without mg total) m g total) 00 :00 crisis by mouth by mouth ([facility]) Two (2) Two (2) times a times a day. One day. One month month supply. supply. hydroxyurea 2017- No Hb-SS Take 1500 Allen e 1500 (HYDREA) 11-08 disease mg by mg by 500 mg 00:00: 00:00 without mouth mouth capsule 00 :00 crisis daily daily ([facility]) oxyCODONE 2017- No Hb-SS 10MG Take 1 Take 1 (ROXICODONE 10-30 disease tablet (10 t ablet ) 10 mg 00:00: 00:00 without mg total) (10 m g immediate 00 :00 crisis by mouth total) by release ([facility]) every mouth tablet eight (8) every hours as eight (8) needed for hours as pain. needed for pain. methadone 2017- No Hb-SS 5MG Take 1 Take 1 (DOLOPHINE) 10-30 disease tablet (5 ta blet (5 5 MG tablet 00:00: 00:00 without mg total) m g total) 00 :00 crisis by mouth by mouth ([facility]) Two (2) Two (2) times a times a day. One day. One month month supply. supply. hydroxyurea 2017- No Hb-SS Take 1500 Allen e 1500 (HYDREA) 10-30 disease mg by mg by 500 mg 00:00: 00:00 without mouth mouth capsule 00 :00 crisis daily daily ([facility]) acetaminoph Yes 1000mg Take 2 Take 2 [...] mouth capsule 00 :00 crisis daily daily ([facility]) oxyCODONE 2017- No Hb-SS 10MG Take 1 Take 1 (ROXICODONE 09-30 disease tablet (10 t ablet ) 10 mg 00:00: 00:00 without mg total) (10 m g immediate 00 :00 crisis by mouth total) by release ([facility]) every mouth tablet eight (8) every hours as eight (8) needed for hours as pain. needed for pain. methadone 2017- No Hb-SS 5MG Take 1 Take 1 (DOLOPHINE) 09-30 disease tablet (5 ta blet (5 5 MG tablet 00:00: 00:00 without mg total) m g total) 00 :00 crisis by mouth by mouth ([facility]) Two (2) Two (2) times a times [...] :00 crisis total) by total) b y ([facility]) mouth mouth every 6 every 6 hours as hours as needed for needed pain. for pain. folic acid No Hb-SS 1MG Take 1 Take 1 (FOLVITE) 1 08-16 disease tablet (1 ta blet (1 MG tablet 00:00: 00:00 without mg total) mg total) 00 :00 crisis by mouth by mouth ([facility]) daily. daily. hydroxyurea 2017- No Hb-SS Take 1500 Allen e 1500 (HYDREA) 08-16 disease mg by mg by 500 mg 00:00: 00:00 without mouth mouth capsule 00 :00 crisis daily daily ([facility]) methadone No Hb-SS 5MG Take 1 Take 1 (DOLOPHINE) 08-16 disease tablet (5 ta blet (5 5 MG tablet 00:00: 00:00 without mg total) m g total) 00 :00 crisis by mouth by mouth ([facility]) Two (2) Two (2) times a times a day. One day. One month month supply. supply. oxyCODONE No Hb-SS 10MG Take 1 Take 1 (ROXICODONE 08-16 disease tablet (10 t ablet ) 10 mg 00:00: 00:00 without mg total) (10 m g immediate 00 :00 crisis by mouth total) by release ([facility]) every mouth tablet eight (8) every hours as eight (8) needed for hours as pain. needed for pain. oxyCODONE No Hb-SS 10MG Take 1 Take 1 (ROXICODONE 2-13 disease tablet (10 t ablet ) 10 mg 00:00: without mg total) (10 m g immediate 00 crisis by mouth total) by release ([facility]) every mouth tablet eight (8) every hours [...] :00 (1 Mg/Ml) (1mg/ml) In 0.9 % [employer] C[employer] Sod.Chlori de IV Pump Resv oxyCODONE [...] 00 :00 crisis total) by total) by ([facility]) mouth mouth nightly. nightly. pregabalin 2018- No [...] McG/Actuat mcg/actuati 00 ion Nasal on nasal [place],Susp spray 1 ension spray hydroxyurea No 1500MG [...] 01:04: Tablet mg 57 baclofen No 10MG Q.[id number] Baclofen (LIORESAL) 10-10 [id number] 10 Mg tablet 10 01:04: 3D Tablet [...] 10 mg Solution baclofen 2015-0 No 10MG Q.[id number] Take 1 Take 1 (LIORESAL) 5-24 [id number] tablet (10 tablet 10 MG 00:00: 3D [...] September 27, 2015. baclofen 2015-0 No 10MG Q.[id number] Take 1 Take 1 (LIORESAL) 5-24 [id number] tablet (10 tablet 10 MG 00:00: 3D mg total) (10 mg tablet 00 by mouth total) by Three (3) mouth times a Three (3) day as times a needed day as (for needed priapism). (for priapism) . baclofen No 10MG Q.[id number] Take 1 Take 1 (LIORESAL) 5-24 [id number] tablet (10 tablet 10 MG 00:00: 3D [...] tablet 650 00 mg baclofen No 10MG Q.[id number] Baclofen (LIORESAL) 08-26 [id number] 10 Mg tablet 10 21:18: 3D Tablet mg 31 HYDROmorpho Hydromorph ne 08-26 05- one 50 (DILAUDID) 20:59: 22:56 Mg/50 Ml 50mg/50ml 00 :00 (1 Mg/Ml) (1mg/ml) In 0.9 % [employer] C[employer] Sod.Chlori de IV Pump Resv diphenhydrA [...] (6) hours as needed. baclofen No 10MG Q.[id number] Take 1 Take 1 (LIORESAL) 9-21 [id number] tablet (10 tablet 10 MG 00:00: 3D [...] packet day. day. 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 05-01 [...] to hemoglobin hemoglobin S S CAP CAP [id number] Resolve 2015-05-06 (community (community d - 00:00:00 acquired acquired 00:00: pneumonia), pneumonia), 00 unspecified unspecified , , unspecified unspecified Atypical Atypical [id number] Resolve 2015-05-06 chest pain chest pain d 05-02 00:00:00 00:00: 00 Acute chest Acute chest Condition Resolve 2015-02-08 syndrome syndrome d 05-24 00:00:00 00:00: 00 Procedures Procedure Date / Time Performed Performing Clinician [facility] [place] [id number] 2018-07-22 03:28:25 Joe Bruner URINALYSIS W/REFLEX TO [...] Text Results Atomic Results Result Comments WBC 2020-03-03 14:56:00 Test Item Value Reference Range Comments WBC (test code = WBC) 6.0000 4.0000-10.0000 Lymphocytes % (test code = Lymphocytes %) 39.7000 % 22.400 0-43.6000 MID% (test code = MID%) 7.2000 % 1.2000-11.2000 Neutrophils % (test code = Neutrophils %) 53.1000 % 48.900 0-69.9000 Lymphocytes (test code = Lymphocytes) 2.3000 1.2000-3.2 000 MID (test code = MID) 0.5000 0.1000-1.1000 Neutrophils (test code = Neutrophils) 3.2000 1.5000-6.7 000 RBC (test code = RBC) 3.1500 3.7000-4.9000 HGB (test code = HGB) 10.2000 g/dL 11.2000-18.0000 HCT (test code = HCT) 29.2000 % 34.0000-44.0000 MCV (test code = MCV) 92.6000 fL 80.0000-94.0000 MCH (test code = MCH) 32.6000 pg 27.0000-34.0000 MCHC (test code = MCHC) 35.2000 g/dL 31.5000-36.0000 RDW (test code = RDW) 22.6000 11.0000-18.0000 PLT (test code = PLT) 408.0000 140.0000-440.0000 MPV (test code = MPV) 7.2000 fL 6.8000-10.6000 [id number] 14:56:00 Test Item Value Reference Range Comments Creatinine (test code = Creatinine) 0.6000 mg/dL 0.5000-1.200 0 Cr Clearance (Est) (test code = Cr 208.7400 85.0000-125.0 000 Clearance (Est)) Glucose (test code = Glucose) 92.0000 mg/dL 70.0000-118.0000 BUN (test code = BUN) 9.0000 mg/dL 7.0000-22.0000 Sodium (test code = Sodium) 139.0000 mmol/L 128.0000-145.0000 Potassium (test code = Potassium) 3.8000 mmol/L 3.6000-5.1000 Chloride (test code = Chloride) 105.0000 mmol/L 96.0000-108.0000 CO2 (test code = CO2) 27.0000 mmol/L 18.0000-33.0000 Calcium (test code = Calcium) 8.7800 mg/dL 8.0000-10.3000 Alkaline Phosphatase (test code = Alkaline 73.0000 42.00 00-141.0000 Phosphatase) ALT (SGPT) (test code = ALT (SGPT)) 11.0000 10.0000-47.0 000 AST (SGOT) (test code = AST (SGOT)) 22.0000 11.0000-37.0 000 Bilirubin, Total (test code = Bilirubin, 2.7000 mg/dL 0.0000- 1.6000 Total) Albumin (test code = Albumin) 4.5000 g/dL 3.5000-5.5000 Protein, Total (test code = Protein, 7.3000 g/dL 6.4000-8.10 00 Total) eGFR -[place] (test code = eGFR 181.0000 60.0000- 200.0000 -[place]) eGFR Bai-Qtnugls-Lrrjrmmf (test code = 150.0000 60.0000-2 00.0000 eGFR Iub-Ywdkdfy-Llxypfrl) [id number] 14:45:00 Test Item Value Reference Range Comments [...] (test code = MPV) 7.6000 fL 6.8000-10.6000 [id number] 14:45:00 Test Item Value Reference Range Comments [...] Protein, 7.4000 g/dL 6.4000-8.10 00 Total) eGFR -[place] (test code = eGFR 151.0000 60.0000- 200.0000 -[place]) eGFR Ivl-Hdgekxc-Mbebavep (test code = 125.0000 60.0000-2 00.0000 eGFR Eft-Wpiedgw-Dypvvspq) [id number] 11:24:00 Test Item Value Reference Range Comments Creatinine (test code = Creatinine) 0.7800 mg/dL 0.7600-1.270 0 Cr Clearance (Est) (test code = Cr 154.0200 85.0000-125.0 000 Clearance (Est)) Glucose (test code = Glucose) 89.0000 mg/dL 65.0000-99.0000 BUN (test code = BUN) 8.0000 mg/dL 6.0000-20.0000 eGFR Ryw-Tatmhqg-Zulbfzxf (test code = 114.0000 eGFR Vmi-Mbolpvm-Qttvzvhk) eGFR -[place] (test code = eGFR 131.0000 -[place]) BUN/Creat Ratio (test code = BUN/Creat 10.0000 [...] code = ALT (SGPT)) 30.0000 0.0000-44.00 00 [id number] 08:26:00 Test Item Value Reference Range Comments [...] (test code = MPV) 7.1000 fL 6.8000-10.6000 [id number] 14:08:00 Test Item Value Reference Range Comments [...] (test code = MPV) 6.4000 fL 6.8000-10.6000 [id number] 14:08:00 Test Item Value Reference Range Comments [...] Protein, 7.9000 g/dL 6.4000-8.10 00 Total) eGFR -[place] (test code = eGFR 152.0000 60.0000- 200.0000 -[place]) eGFR Mym-Zjeogzx-Bytiwsna (test code = 126.0000 60.0000-2 00.0000 eGFR Jjp-Adehjtv-Ljszntmt) [id number] 11:13:00 Test Item Value Reference Range Comments WBC (test code = WBC) 5.8000 4.0000-10.0000 Lymphocytes % (test code = Lymphocytes %) 30.3000 % 22.400 0-43.6000 MID% (test code = MID%) 8.2000 % 1.2000-11.1999 Neutrophils % (test code = Neutrophils %) [...] (test code = MPV) 7.1000 fL 6.8000-10.6000 [id number] 14:10:00 Test Item Value Reference Range Comments WBC (test code = WBC) 5.5000 4.0000-10.0000 Lymphocytes % (test code = Lymphocytes %) 34.6000 % 22.400 0-43.6000 MID% (test code = MID%) 6.1000 % 1.2000-11.1999 Neutrophils % (test code = Neutrophils %) [...] (test code = MPV) 6.8000 fL 6.8000-10.6000 [id number] 14:10:00 Test Item Value Reference Range Comments [...] Protein, 7.8000 g/dL 6.4000-8.10 00 Total) eGFR -[place] (test code = eGFR 153.0000 60.0000- 200.0000 -[place]) eGFR Rgy-Xgviyih-Kwbtexoh (test code = 126.0000 60.0000-2 00.0000 eGFR Qvy-Qrhqqkx-Nxhkuzou) [id number] 11:25:00 Test Item Value Reference Range Comments [...] (test code = MPV) 7.5000 fL 6.8000-10.6000 [id number] 11:25:00 Test Item Value Reference Range Comments [...] Protein, 7.7000 g/dL 6.4000-8.10 00 Total) eGFR -[place] (test code = eGFR 225.0000 60.0000- 200.0000 -[place]) eGFR Pnm-Oqvabbt-Pmglbwan (test code = 186.0000 60.0000-2 00.0000 eGFR Jof-Xvfzqgs-Gyxpwcoh) [id number] 10:16:00 Test Item Value Reference Range Comments [...] (test code = MPV) 7.6000 fL 6.8000-10.6000 [id number] 10:16:00 Test Item Value Reference Range Comments [...] Protein, 7.4000 g/dL 6.4000-8.10 00 Total) eGFR -[place] (test code = eGFR 153.0000 60.0000- 200.0000 -[place]) eGFR Ffl-Wcaemsu-Bpufzxzs (test code = 126.0000 60.0000-2 00.0000 eGFR Mcs-Rbmvutf-Lktkyjip) Troponin I ([facility])2018-07-22 02:58:00 Test Item Value Reference Range Comments Troponin I (test code = 95892-5) <0.01 <0.50 ng/mL MARGO (test code = MARGO) Lab Interpretation (test code = 85812-4) Normal Basic Metabolic Panel (BMP)2018-07-21 23:28:00 Test Item Value Reference Range Comments Sodium (test code = 2951-2) 137 mmol/L 135-145 Potassium (test code = 2823-3) 4.1 mmol/L 3.5-5 Chloride (test code = 2075-0) 105 mmol/L 98-108 Carbon Dioxide (CO2) (test 23 mmol/L -30 code = 8-9) Urea Nitrogen (BUN) (test code 11 mg/dL [...] 125 m g/dL Calcium (test code = 36477-5) 8.7 mg/dL 8.7-10.2 Anion Gap (test code = 9 mmol/L 3-12 83792-2) BUN/CREA Ratio (test code = 22 20-30 3097-3) BUN/CREA Ratio (test code = 22 <30 83359310) Glomerular Filtration Rate >60 mL/min/1.73sq m Inter pretive Ranges for (eGFR), MDRD Estimate (test Mindy ents with Chronic Kidney code = 42562-5) Disease: eGFR: > 60 mL/min - Norm al eGFR: 30 - 59 mL/min - Moderat laura Decreased eGFR: 15 - 29 mL/min - Severel y Decreased eGFR: < 15 mL/min -Kidney Fail ure Note: These GFR calcul ations do not apply in acu te situations when GFR is changing rapidly or in patients on dial ysis. Lab Interpretation (test code Abnormal = 33176-1) Complete Blood Count (CBC) with [id number] 23:24:00 Test Item Value Reference Range Comments WBC (White Blood Cell Count) 6.2 4.8- 10.8 x 10 9 (test code = 87371-2) /L Hemoglobin (test code = 9.0 g/dL 13.7-17.3 718-7) Hematocrit (test code = 26.2 % 39-49 4544-3) Platelets (test code = 338 150- 450 x10 9 29393-6) /L MCV (Mean Corpuscular Volume) 95 fL 80-98 (test code = 787-2) MCH (Mean Corpuscular 32.6 pg 26.5-34 Hemoglobin) (test code = 785-6) MCHC (Mean Corpuscular 34.4 % 31.5-36.3 Hemoglobin Concentration) (test code = 786-4) RBC (Red Blood Cell Count) 2.76 4.37- 5.74 x1 0 1 (test code = 85885-3) 2/L RDW-CV (Red Cell Distribution 21.6 % 11.5-14.5 Width) (test code = 10946-1) NRBC (Nucleated Red Blood 0.20 0 x10 9 Cell Count) (test code = /L 19619-9) NRBC % (Nucleated Red Blood 3.2 % Cell %) (test code = 12270-2) MPV (Mean Platelet Volume) 9.4 fL 7.2-11.7 (test code = 56373913) Neutrophil Count (test code = 3.4 2.0- 8.6 x 10 9 79529-4) /L Neutrophil % (test code = 55.9 % 37-80 01414-8) Lymphocyte Count (test code = 1.8 0.6- 4.2 x 10 9 42776-3) /L Lymphocyte % (test code = 28.6 % 10-50 53229-8) Monocyte Count (test code = 0.8 0- 0.9 x10 9 00951-2) /L Monocyte % (test code = 13.3 % 0-12 23342-8) Eosinophil Count (test code = 0.07 0- 0.70 x1 0 9 711-2) /L Eosinophil % (test code = 1.1 % 0-7 03206-3) Basophil Count (test code = 0.04 0- 0.20 x10 9 704-7) /L Basophil % (test code = 0.6 % 0-2 706-2) Slide Review/Morphology (test Yes Bl ood film reviewed, code = 74856736) instrument coun ts confirmed,Hypoch romia,Macr ocytes,Large platelets,Ovaloc ytes,Sickl e cells,Target c ells,No significant WBC morphology observed.,Anisoc ytosis, Immature Granulocyte Count 0.03 <=0.06 x10 9 (test code = 38253-8) /L Immature Granulocyte % (test 0.5 % <=0.7 code = 57089-8) Lab Interpretation (test code Abnormal = 06104-7) [id number] 23:24:00 Test Item Value Reference Range Comments Reticulocyte % (test code = 4679-7) 12.24 % 0.7-2 Reticulocyte Count /L (test code = 98865-2) 337.8 28.0 - 134.0 x10^9/L Immature Reticulocyte Fraction (test code = 33.4 % 3.1- 16 52735-5) Lab Interpretation (test code = 21009-8) Abnormal Urinalysis w/reflex to [id number] 23:16:00 Test Item Value Reference Range Comments Color (test code = 5778-6) Yellow Colorless, Straw, Lig ht Yellow, Yellow, Dark Yellow Clarity (test code = 01105-9) Clear Clear Specific [place] (test code = 1.014 1.005-1.030 2965-2) pH, Urine (test code = 2756-5) 6.0 5.0-8.0 Protein, Urinalysis (test code = Negative Negative 2887-8) Glucose, Urinalysis (test code = Negative Negative 2349-9) Ketones, Urinalysis (test code = Negative Negative 58453-0) Blood, Urinalysis (test code = Negative Negative 91009-1) Nitrite, Urinalysis (test code = Negative Negative 77927-0) Leukocytes, Urinalysis (test code = Negative Negative 79190-2) Bilirubin, Urinalysis (test code = Negative Negative 1976-) Urobilinogen, Urinalysis (test code 1.0 mg/dL 0.2-1 = 3107-0) Lab Interpretation (test code = Normal 71657-8) Reticulocyte [id number] 14:40:00 Test Item Value Reference Range Comments Reticulocyte Count (test code = Reticulocyte 15.2000 % 0.6 000-2.6000 Count) [id number] 14:03:00 Test Item Value Reference Range Comments [...] (test code = MPV) 6.9000 fL 6.8000-10.6000 [id number] 13:04:00 Test Item Value Reference Range Comments Creatinine (test code = Creatinine) 0.6800 mg/dL 0.7600-1.270 0 Cr Clearance (Est) (test code = Cr 171.9900 85.0000-125.0 000 Clearance (Est)) Glucose (test code = Glucose) 97.0000 mg/dL 65.0000-99.0000 BUN (test code = BUN) 4.0000 mg/dL 6.0000-20.0000 eGFR Don-Apmslnu-Chljfmij (test code = 121.0000 eGFR Bcq-Vdjusfw-Orwxeayh) eGFR -Guatemalan (test code = eGFR 140.0000 -Guatem[place]) BUN/Creat Ratio (test code = BUN/Creat 6.0000 [...] (test code = Ferritin) 377.0000 ng/mL 30.0000-400.0000 [id number] 16:36:00 Test Item Value Reference Range Comments [...] = MPV) 7.0000 fL 6.8000-10.6000 CBC w/ Tllenkmeputq8381-09-56 15:13:00 Test Item Value Reference Range Comments [...] code = Hypochromasia) Slight Not Pr esent Bkpidpkvuuahi8000-69-99 14:25:00 Test Item Value Reference Range Comments Reticulocyte Manual % (test code = 7.2 % 0.8- 2.5 % Reticulocyte Manual %) Absolute Manual Reticulocyte (test code = 203.8 10*9/L 27.0- 120.0 10*9/L Absolute Manual Reticulocyte) Ggpklmhclmfco4193-52-88 15:27:00 Test Item Value Reference Range Comments Reticulocyte Manual % (test code = 4.7 % 0.8- 2.5 % Reticulocyte Manual %) Absolute Manual Reticulocyte (test code = 127.4 10*9/L 27.0- 120.0 10*9/L Absolute Manual Reticulocyte) CBC w/ Ddosluahppqk2866-00-43 15:27:00 Test Item Value Reference Range Comments [...] = Hypochromasia) Slight Not Pr esent Manual Fsknlouiygza0671-23-50 15:27:00 Test Item Value Reference Range Comments [...] 10*9/L 0.0- 0. 1 10*9/L Basophils) Morphology Wwghiz2399-08-33 15:27:00 Test Item Value Reference Range Comments Smear Review Comments (test code = Smear Review See Comment Undefined Comments) Polychromasia (test code = Polychromasia) Slight Not Pr esent Target Cells (test code = Target Cells) Moderate Not Pres ent Poikilocytosis (test code = Poikilocytosis) Moderate Not Present XR Chest 2 kpyzy6848-74-40 14:42:43XR Chest 2 views (11/27/2017 2:35 PM) Impressions Performed At Peribronchial thickening involving the bilateral lower lobe airways, similar to the prior exam. No focal lung consolidation. [facility] Narrative Performed At EXAM: XR CHEST 2 VIEWS DATE: 11/27/2017 2:35 PM DICTATED: 11/27/2017 2:42 PM INTERPRETATION LOCATION: [facility] CLINICAL INDICATION: 36 years old Male with OTHER-D57.93-Qegzlq-zhhx with crisis ([facility]) COMPARISON: 10/18/2017. TECHNIQUE: PA and Lateral Chest R adiographs. FINDINGS: Left-sided Port-A-Cath with distal tip in the lower SVC. Peribronchial thickening involving the bilateral lower lobe airways. No focal lung consolidation. No pleural effusion or pneumothorax. Stable cardiomediastinal silhouette. [facility] Procedure Note Interface, Rad Results In - 11/27/2017 2:45 PM EDT EXAM: XR CHEST 2 VIEWS DATE: 11/27/2017 2:35 PM DICTATED: 11/27/2017 2:42 PM INTERPRETATION LOCATION: [facility] [place] CLINICAL INDICATION: 36 years old Male with OTHER-D57.90-Jjujzd-luhl with crisis ([facility]) COMPARISON: 10/18/2017. TECHNIQUE: PA and Lateral ChestRadiographs. FINDINGS: Left-sided Port-A-Cath with distal tip in the lower SVC. Peribronchial thickening involving the bilateral lower lobe airways. No focal lung consolidation. No pleural effusion or pneumothorax. Stable cardiomediastinal silhouette. IMPRESSION: Peribronchial thickening involving thebilateral lower lobe airways, similar to the prior exam. No focal lung consolidation. Performing Organization Address City/State/Zipcode Phone Number [facility] [address] [facility] [place] [address]#[id number] 14:42:43XR Chest 2 views (11/27/2017 2:35 PM EDT)SpecimenImpressionsPerformed At Peribronchial thickening involving the bilateral lower lobe airways, similar to the prior exam. No focal lung consolidation.[facility] RADNarrativePerformed AtEXAM: XR CHEST 2 VIEWSDATE: 11/27/2017 2:35 PMACCESSION: [id number]:11/27/2017 2:42 PMINTERPRETATION LOCATION: [facility] [place] CLINICAL INDICATION: 36 years old Male with OTHE R-D57.03-Rnriej-fwlm with crisis ([facility]) COMPARISON: 10/18/2017. TECHNIQUE: PA and Lateral Chest Radiographs. FINDINGS: Left-sided Port-A-Cath with distal tip in the lower SVC. Peribronchial thickening involving the bilateral lower lobe airways. No focal lung consolidation. No pleural effusion orpneumothorax. Stable cardiomediastinal silhouette. [facility]Procedure NoteInterface, Rad Results In - 11/27/2017 2:45 PM EDTEXAM: XR CHEST 2 VIEWS DATE: 11/27/2017 2:35 PM DICTATED: 11/27/2017 2:42 PM INTERPRETATION LOCATION: [facility] CLINICAL INDICATION: 36 years old Male with OTHER-D57.36-Kjechx-nyii with crisis ([facility]) COMPARISON: 10/18/2017. TECHNIQUE: PA and Lateral Chest R adiographs. FINDINGS: Left-sided Port-A-Cath with distal tip in the lower SVC. Peribronchial thickening involving the bilateral lower lobe airways. No focal lung consolidation. No pleural effusion or pneumothorax. Stable cardiomediastinal silhouette. IMPRESSION: Peribronchial thickening involving the bilateral lower lobe airways, similar to the prior exam. No focal lung consolidation.Performing OrganizationAddressCity/State/ZipcodePhone Number[facility] [id number] [facility] [place], [place] [address]BDB w/ Flzuowgqgjql7399-17-84 04:54:00 Test Item Value Reference Range Comments [...] Hypochromasia) Slight Not Pr esent CBC w/ Gtmmmwfvkzne0788-66-21 04:54:00CBC w/ Differential (10/26/2017 4:54 AM) Specimen Performing Laboratory Blood [facility] Narrative The following orders were created for panel order CBC w/ Differential. Procedure? Abnormality? Status? ---------? ------? CBC w/ Differential[[id number]]? Abnormal?Final result? Please view results for these tests on the individual orders.Comprehensive metabolic oycmf4435-53-82 06:21:00 Test Item Value Reference Range Comments [...] U/L 38- 1 26 U/L Phosphatase) Lactate tvanyotgxuewt3820-19-73 06:21:00 Test Item Value Reference Range Comments LDH (test code = LDH) 816 U/L 338- 610 U/L CBC w/ Qxdnmwgbkgtm4876-32-45 06:21:00 Test Item Value Reference Range Comments [...] = Hypochromasia) Slight Not Pr esent Morphology Ggtbjr4978-11-82 06:21:00 Test Item Value Reference Range Comments Smear Review Comments (test code = Smear Review See Comment Undefined Comments) CBC w/ Yzxrqgwipasu2447-05-22 06:21:00CBC w/ Differential (10/25/2017 6:21 AM) Specimen Performing Laboratory Blood [facility] Narrative The following orders were created for panel order CBC w/ Differential. Procedure? Abnormality? Status? ---------? ------? CBC w/ Differential[[id number]]? Abnormal?Final result? Morphology Review[[id number]]? Abnormal?Final result? Please view results for these [...] U/L 38- 1 26 U/L Phosphatase) Lactate glyruizwgnqsl4814-99-61 06:14:00 Test Item Value Reference Range Comments LDH (test code = LDH) 801 U/L 338- 610 U/L CBC w/ Dkosfpmfiwoz2861-57-22 06:14:00 Test Item Value Reference Range Comments [...] Hypochromasia) Slight Not Pr esent CBC w/ Fwtwrxjbbhrz6731-44-62 06:14:00CBC w/ Differential (10/24/2017 6:14 AM) Specimen Performing Laboratory Blood [facility] Narrative The following orders were created for panel order CBC w/ Differential. Procedure? Abnormality? Status? ---------? ------? CBC w/ Differential[[id number]]? Abnormal?Final result? Please view results for these tests on the individual orders.Comprehensive metabolic lwggq7941-28-06 06:04:00 Test Item Value Reference Range Comments [...] U/L 38- 1 26 U/L Phosphatase) Lactate yvwbijbfzlybd2637-67-74 06:04:00 Test Item Value Reference Range Comments LDH (test code = LDH) 788 U/L 338- 610 U/L CBC w/ Qobzgjjnnpik8657-66-99 06:04:00 Test Item Value Reference Range Comments [...] = Hypochromasia) Slight Not Pr esent Morphology Ocrqiq4600-91-13 06:04:00 Test Item Value Reference Range Comments [...] = Poikilocytosis) Moderate Not Present CBC w/ Itsycqqgtsum8800-82-55 06:04:00CBC w/ Differential (10/23/2017 6:04 AM) Specimen Performing Laboratory Blood [facility] Narrative The following orders were created for panel order CBC w/ Differential. Procedure? Abnormality? Status? ---------? ------? CBC w/ Differential[[id number]]? Abnormal?Final result? Morphology Review[[id number]]? Abnormal?Final result? Please view results for these [...] U/L 38- 1 26 U/L Phosphatase) Lactate uahqfppursvsy9964-18-44 03:50:00 Test Item Value Reference Range Comments LDH (test code = LDH) 821 U/L 338- 610 U/L CBC w/ Elyqubetxfaz7361-93-65 03:50:00 Test Item Value Reference Range Comments [...] = Hypochromasia) Slight Not Pr esent Morphology Cgsnwk5369-65-61 03:50:00 Test Item Value Reference Range Comments Smear Review Comments (test code = Smear Review See Comment Undefined Comments) Giant Platelets (test code = Giant Platelets) Present No t Present Poikilocytosis (test code = Poikilocytosis) Moderate Not Present CBC w/ Hfsnssatojdr7327-25-68 03:50:00CBC w/ Differential (10/22/2017 3:50 AM) Specimen Performing Laboratory Blood [facility] Narrative The following orders were created for panel order CBC w/ Differential. Procedure? Abnormality? Status? ---------? ------? CBC w/ Differential[[id number]]? Abnormal?Final result? Morphology Review[[id number]]? Abnormal?Final result? Please view results for these tests on the individual orders.Vancomycin, Zvamcp9867-68-79 20:12:00 Test Item Value Reference Range Comments Vancomycin Tr (test code = Vancomycin Tr) 11.3 ug/mL 10.0- 20.0 ug/mL Comprehensive metabolic ddqxh9992-99-64 06:12:00 Test Item Value Reference Range Comments [...] U/L 38- 1 26 U/L Phosphatase) Lactate pzliqlxyanyie7358-39-60 06:12:00 Test Item Value Reference Range Comments LDH (test code = LDH) 807 U/L 338- 610 U/L CBC w/ Zeubzdcrltfe7110-81-84 06:12:00 Test Item Value Reference Range Comments [...] code = Hypochromasia) Slight Not Pr esent Tqahhqcmgsvlm3122-02-71 06:12:00 Test Item Value Reference Range Comments Reticulocyte Manual % (test code = 6.4 % 0.8- 2.5 % Reticulocyte Manual %) Absolute Manual Reticulocyte (test code = 166.4 10*9/L 27.0- 120.0 10*9/L Absolute Manual Reticulocyte) CBC w/ Mxdgvibpnxjl1186-32-33 06:12:00CBC w/ Differential (10/21/2017 6:12 AM) Specimen Performing Laboratory Blood [facility] Narrative The following orders were created for panel order CBC w/ Differential. Procedure? Abnormality? Status? ---------? ------? CBC w/ Differential[[id number]]? Abnormal?Final result? Please view results for these tests on the individual orders.Vancomycin, Hcadxz2284-47-31 17:13:00 Test Item Value Reference Range Comments Vancomycin Tr (test code = Vancomycin Tr) 8.5 ug/mL 10.0- 20.0 ug/mL Comprehensive metabolic kteey5829-75-00 05:24:00 Test Item Value Reference Range Comments [...] U/L 38- 1 26 U/L Phosphatase) Lactate hjwsransyzsqa0366-83-50 05:24:00 Test Item Value Reference Range Comments LDH (test code = LDH) 752 U/L 338- 610 U/L CBC w/ Libgfavuesuz3585-01-51 05:24:00 Test Item Value Reference Range Comments [...] = Hypochromasia) Slight Not Pr esent Morphology Vymujb9163-26-87 05:24:00 Test Item Value Reference Range Comments Smear Review Comments (test code = Smear Review See Comment Undefined Comments) CBC w/ Ctntighxwaay3392-51-34 05:24:00CBC w/ Differential (10/20/2017 5:24 AM) Specimen Performing Laboratory Blood [facility] Narrative The following orders were created for panel order CBC w/ Differential. Procedure? Abnormality? Status? ---------? ------? CBC w/ Differential[[id number]]? Abnormal?Final result? Morphology Review[[id number]]? Abnormal?Final result? Please view results for these [...] 38- 1 26 U/L Phosphatase) CBC w/ Hcztskxakmwc0643-49-78 06:13:00 Test Item Value Reference Range Comments [...] = Hypochromasia) Slight Not Pr esent Lactate xcpkcvlrayygz7060-81-15 06:13:00 Test Item Value Reference Range Comments LDH (test code = LDH) 783 U/L 338- 610 U/L Type and Ogckll7949-29-04 06:13:00 Test Item Value Reference Range Comments ABO Grouping (test code = ABO Grouping) O POS Antibody Screen (test code = Antibody Screen) NEG Morphology Yfyvpn2138-96-57 06:13:00 Test Item Value Reference Range Comments Smear Review Comments (test code = Smear Review See Comment Undefined Comments) Polychromasia (test code = Polychromasia) Slight Not Pr esent Target Cells (test code = Target Cells) Moderate Not Pres ent [place] Cells (test code = [place] Cells) Present Not Present Poikilocytosis (test code = Poikilocytosis) Marked Not Present CBC w/ Tegqbsokzqfr2322-57-38 06:13:00CBC w/ Differential (10/19/2017 6:13 AM) Specimen Performing Laboratory Blood [facility] Narrative The following orders were created for panel order CBC w/ Differential. Procedure? Abnormality? Status? ---------? ------? CBC w/ Differential[[id number]]? Abnormal?Final result? Morphology Review[[id number]]? Abnormal?Final result? Please view results for these tests on the individual orders.XR INTERPRETATION OF OUTSIDE EPMO0518-41-30 02:40:05XR INTERPRETATION OF OUTSIDE FILM (10/19/2017 2:40 AM) Specimen Performing Laboratory [facility] [address] [facility] [place] [address] Narrative EXAM: XR INTERPRETATION OF OUTSIDE FILM DATE: 10/19/2017 2:40 AM DICTATED: 10/19/2017 7:47 AM INTERPRETATION LOCATION: [facility] [place] CLINICAL INDICATION: 36 years old Male with PNEUMONIA-J18.9-Pneumonia due to infectious organism, unspecified laterality, unspecified part of lung? COMPARISON: 08/30/2017 TECHNIQUE: PA and lateral chest x-ray from [facility] 10/18/2017 9:57 AM FINDINGS: The left- sided [...] DICTATED: 10/19/2017 7:47 AM INTERPRETATION LOCATION: [facility] [place] CLINICAL INDICATION: 36 years old Male with PNEUMONIA-J18.9-Pneumonia due to infectious organism, unspecified laterality, unspecified part of lung COMPARISON: 08/30/2017 TECHNIQUE: PA and lateral chest x-ray from 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 No acute airspace disease to suggest acute chest syndrome. -Unchanged cardiomegaly. Narrative EXAM: XR CHEST PA AND LATERAL DATE: 08/30/2017 1:03 PM DICTATED: 08/30/2017 1:11 PM INTERPRETATION LOCATION: [facility] CLINICAL INDICATION: 36 years old Male with [...] 1:03 PM DICTATED: 08/30/20171:11 PM INTERPRETATION LOCATION: [facility] CLINICAL INDICATION: 36 years old Male with [...] 53 U/L 38- 1 26 U/L Phosphatase) Ajbqmukrlmuiv1058-01-25 12:01:00 Test Item Value Reference Range Comments Reticulocyte Manual % (test code = 5.9 % 0.8- 2.5 % Reticulocyte Manual %) Absolute Manual Reticulocyte (test code = 177.0 10*9/L 27.0- 120.0 10*9/L Absolute Manual Reticulocyte) LDH, Lactate xbxljibmngxja2234-36-19 12:01:00 Test Item Value Reference Range Comments LDH (test code = LDH) 846 U/L 338- 610 U/L CBC w/ Yezibaznswzv6260-62-17 12:01:00 Test Item Value Reference Range Comments [...] = Hypochromasia) Moderate Not Pr esent Morphology Cdaczr3997-95-96 12:01:00 Test Item Value Reference Range Comments Smear Review Comments (test code = Smear Review See Comment Undefined Comments) Polychromasia (test code = Polychromasia) Slight Not Pr esent CBC w/ Gxzgmovysmoj5051-26-75 12:01:00CBC w/ Differential (08/30/2017 12:01 PM) Specimen Performing Laboratory Blood [facility] Narrative The following orders were created for panel order CBC w/ Differential. Procedure Abnormality Status --------- ------ CBC w/ Differential[[id number]] AbnormalFinal result Morphology Review[[id number]] AbnormalFinal result Please view results for these tests on the individual orders.CT Chest Wo Bvqdczti3245-80-14 12:30:00CT Chest Wo Contrast (06/05/2017 12:30 PM) Specimen Performing Laboratory [facility] [address] [facility] [place] [address] Impressions Groundglass opacities and bronchiectasis primarily involving the right middle lobe, lingula, and both lung bases favored to represent scarring from prior airspace disease at these locations. Narrative EXAM: CT Chest without contrast DATE: 06/05/2017 12:30 PM DICTATED: 06/05/2017 12:33 PM INTERPRETATION LOCATION: [facility] CLINICAL INDICATION: 36 years old Male with [...] PM DICTATED: 06/05/2017 12:33 PM INTERPRETATION LOCATION: [facility] CLINICAL INDICATION: 36 years old Male with [...] prior airspace disease at these locations.ECG 12 Gliv4362-13-14 09:06:13 Test Item Value Reference Range Comments [...] QTC 396 ms Calculation) EKG Calculated P [place] (test code = EKG Calculated 67 degrees P [place]) EKG Calculated R [place] (test code = EKG Calculated 30 degrees R [place]) EKG Calculated T [place] (test code = EKG Calculated 33 degrees T [place]) XR Chest PA and Guxiugz9193-36-57 08:54:37XR Chest PA and Lateral (06/05/2017 8:54 AM) Specimen Performing Laboratory [facility] [address] [facility] [place] [address] Impressions Bibasilar opacities with possible bronchiectasis. Recommend chest CT for further evaluation Narrative EXAM: CHEST TWO VIEW DATE: 06/05/2017 8:54 AM 06/05/2017 9:01 AM INTERPRETATION LOCATION: [facility] CLINICAL INDICATION: 36 years old Male with [...] AM DICTATED: 06/05/2017 9:01 AM INTERPRETATION LOCATION: [facility] CLINICAL INDICATION: 36 years old Male with [...] Recommend chest CT for further evaluationComprehensive metabolic vgebv9295-88-52 07:47:00 Test Item Value Reference Range Comments [...] 67 U/L 38- 1 26 U/L Phosphatase) Pvwgcaudzntst9055-09-77 07:47:00 Test Item Value Reference Range Comments Reticulocyte Manual % (test code = 6.3 % 0.8- 2.5 % Reticulocyte Manual %) Absolute Manual Reticulocyte (test code = 180.2 10*9/L 27.0- 120.0 10*9/L Absolute Manual Reticulocyte) CBC w/ Xixzbpwmghnn5787-43-27 07:47:00 Test Item Value Reference Range Comments [...] Anisocytosis) Moderate Not Pres ent LDH, Lactate bwnhzzhcmkrtb9748-94-43 07:47:00 Test Item Value Reference Range Comments LDH (test code = LDH) 853 U/L 338- 610 U/L Morphology Vlbxxk9717-98-06 07:47:00 Test Item Value Reference Range Comments Smear Review Comments (test code = Smear Review See Comment Undefined Comments) Polychromasia (test code = Polychromasia) Moderate Not Pr esent Target Cells (test code = Target Cells) Moderate Not Pres ent Poikilocytosis (test code = Poikilocytosis) Moderate Not Present CBC w/ Sibwmslhvyjz8241-06-06 07:47:00CBC w/ Differential (06/05/2017 7:47 AM) Specimen Performing Laboratory Blood [facility] Narrative The following orders were created for panel order CBC w/ Differential. Procedure Abnormality Status --------- ------ CBC w/ Differential[[id number]] AbnormalFinal result Morphology Review[[id number]] AbnormalFinal result Please view results for these tests on the individual orders.Izekmcoziuyoo4867-64-84 08:53:00 Test Item Value Reference Range Comments Reticulocyte Manual % (test code = 8.1 % 0.8- 2.5 % Reticulocyte Manual %) Absolute Manual Reticulocyte (test code = 220.3 10*9/L 27.0- 120.0 10*9/L Absolute Manual Reticulocyte) Comprehensive Metabolic Cowyq4331-69-49 08:53:00 Test Item Value Reference Range Comments [...] 38- 1 26 U/L Phosphatase) CBC w/ Nkfhgcvwlotm9202-53-97 08:53:00 Test Item Value Reference Range Comments [...] = Hypochromasia) Slight Not Pr esent Troponin [id number] 08:53:00 Test Item Value Reference Range Comments Troponin I (test code = Troponin I) <0.034 <0.034 ng/mL Morphology Bxlnih7926-96-23 08:53:00 Test Item Value Reference Range Comments Smear Review Comments (test code = Smear Review See Comment Undefined Comments) Polychromasia (test code = Polychromasia) Slight Not Pr esent Poikilocytosis (test code = Poikilocytosis) Moderate Not Present CBC w/ Ahummlhfpdze1315-27-21 08:53:00CBC w/ Differential (04/07/2017 8:53 AM) Specimen Performing Laboratory Blood [facility] Narrative The following orders were created for panel order CBC w/ Differential. Procedure Abnormality Status --------- ------ CBC w/ Differential[[id number]] AbnormalFinal result Morphology Review[[id number]] AbnormalFinal result Please view results for these tests on the individual orders.[id number] 01:53:00 Test Item Value Reference Range Comments [...] Results Verified by Slide Scan) Basic Metabolic Jhdng4736-62-17 01:53:00 Test Item Value Reference Range Comments [...] = Calcium) 8.8 mg/dL 8.5-10.2 mg/dL Lactate youolblhnzraf0764-35-44 01:53:00 Test Item Value Reference Range Comments LDH (test code = LDH) 938 U/L 338-610 U/L VRE Vwzmyt7590-12-32 10:46:00 Test Item Value Reference Range Comments VRE Screen (test code = VRE Screen) NOT DETECTED Basic metabolic rutmw0143-46-99 04:31:00 Test Item Value Reference Range Comments [...] Calcium) 8.6 mg/dL 8.5-10.2 mg/dL CBC w/ Itnlmxdydzhm1139-01-92 04:31:00 Test Item Value Reference Range Comments [...] = Hypochromasia) Slight Not Pr esent Morphology Fmvjyf5328-86-11 04:31:00 Test Item Value Reference Range Comments Smear Review Comments (test code = Smear Review See Comment Undefined Comments) Polychromasia (test code = Polychromasia) Slight Not Pr esent Target Cells (test code = Target Cells) Moderate Not Pres ent Toxic Vacuolation (test code = Toxic Present Not Present Vacuolation) Poikilocytosis (test code = Poikilocytosis) Moderate Not Present CBC w/ Tqtdxirsxnoo0277-38-76 04:31:00CBC w/ Differential (09/27/2016 4:31 AM) Specimen Blood Narrative The following orders were created for panel order CBC w/ Differential. Procedure? Abnormality? Status? ---------? ------? CBC w/ Differential[[id number]]? Abnormal?Final result? Morphology Review[[id number]]? Abnormal?Final result? Please view results for these tests on the individual orders.XR Chest PA and Lateral 2016-09-26 20:13:50XR Chest PA and Lateral (09/26/2016 8:13 PM) Narrative EXAM: CHEST TWO VIEW DATE: 09/26/2016 8:13 PM DICTATED: 09/26/2016 8:43 PM INTERPRETATION LOCATION: [facility] [place] CLINICAL INDICATION: 35 years old Male with [...] PM DICTATED: 09/26/2016 8:43 PM INTERPRETATION LOCATION: [facility] CLINICAL INDICATION: 35 years old Male with [...] opacities which are most likely atelectasis.Comprehensive Metabolic Ptwom2289-46-68 18:44:00 Test Item Value Reference Range Comments [...] U/L 38-12 6 U/L Phosphatase) LDH, Lactate uyxbboezqncun0305-24-63 18:44:00 Test Item Value Reference Range Comments LDH (test code = LDH) 1054 U/L 338-610 U/L Jprpkvozoouwx7823-48-73 18:44:00 Test Item Value Reference Range Comments Reticulocyte Manual % (test code = 8.2 % 0.8-2.5 % Reticulocyte Manual %) Absolute Manual Reticulocyte (test code = 246.0 10*9/L 27.0-1 20.0 10*9/L Absolute Manual Reticulocyte) CBC w/ Ootjkwxhkefn1119-94-88 18:44:00 Test Item Value Reference Range Comments [...] = Hypochromasia) Slight Not Pr esent Morphology Dimjvr6920-74-66 18:44:00 Test Item Value Reference Range Comments Smear Review Comments (test code = Smear Review See Comment Undefined Comments) Polychromasia (test code = Polychromasia) Moderate Not Pr esent Target Cells (test code = Target Cells) Moderate Not Pres ent Poikilocytosis (test code = Poikilocytosis) Moderate Not Present CBC w/ Pjbhbqkfzuwu5745-73-33 18:44:00CBC w/ Differential (09/26/2016 6:44 PM) Specimen Blood Narrative The following orders were created for panel order CBC w/ Differential. Procedure? Abnormality? Status? ---------? ------? CBC w/ Differential[[id number]]? Abnormal?Final result? Morphology Review[[id number]]? Abnormal?Final result? Please view results for these tests on the individual orders.[id number] 09:43:00 Test Item Value Reference Range Comments [...] Slide Reviewed Results Verified by Slide Scan) [id number] 10:28:00 Test Item Value Reference Range Comments HGB (test code = HGB) 8.6 g/dL 13.5-17.5 g/dL [id number] 06:31:00 Test Item Value Reference Range Comments [...] Platelet) 435 10*9/L 150-440 10*9/L Comprehensive Metabolic Hxxkl9575-26-54 06:31:00 Test Item Value Reference Range Comments [...] Alkaline 76 U/L 38-12 6 U/L Phosphatase) [id number] 05:12:00 Test Item Value Reference Range Comments [...] /100 WBCs <=4 /100 WBCs Basic Metabolic [id number] 09:30:00 Test Item Value Reference Range Comments [...] = Calcium) 8.3 mg/dL 8.5-10.2 mg/dL Bilirubin, [id number] 09:30:00 Test Item Value Reference Range Comments Total Bilirubin (test code = Total Bilirubin) 0.9 mg/dL 0. 0-1.2 mg/dL [id number] 09:30:00 Test Item Value Reference Range Comments [...] = Platelet) 361 10*9/L 150-440 10*9/L Hemoglobin/Thalassemia [id number] 09:30:00 Test Item Value Reference Range Comments [...] CELL code = Hemoglobin DISEASE. Interpretation) Lactate itzjsfoeigucs7458-47-38 09:30:00 Test Item Value Reference Range Comments LDH (test code = LDH) 796 U/L 338-610 U/L Ffgvqctyyxamu8272-87-90 09:30:00 Test Item Value Reference Range Comments Reticulocyte Manual % (test code = 3.2 % 0.8-2.5 % Reticulocyte Manual %) Absolute Manual Reticulocyte (test code = 88.6 10*9/L 27.0-1 20.0 10*9/L Absolute Manual Reticulocyte) [id number] 05:29:00 Test Item Value Reference Range Comments [...] Platelet) 411 10*9/L 150-440 10*9/L Basic Metabolic [id number] 05:29:00 Test Item Value Reference Range Comments [...] Calcium) 7.6 mg/dL 8.5-10.2 mg/dL CTA Chest [id number] 13:59:27CTA Chest Pe (10/12/2015 1:59 PM) Narrative EXAM: CTA Chest for Pulmonary Embolus DATE: 10/12/15 13:59:27 DICTATED: 10/12/15 14:24:40 INTERPRETATION LOCATION: [facility] [place] CLINICAL INDICATION: 34 Year Old (M): sickle [...] 10/12/15 13:59:27 DICTATED: 10/12/15 14:24:40 INTERPRETATION LOCATION: [facility] CLINICAL INDICATION: 34 Year Old (M): sickle [...] right middle lobe volume loss.Urinalysis with Culture [id number] 05:25:00 Test Item Value Reference Range Comments [...] None Seen None See n /HPF Specific [place], UA (test code = Specific 1.005 1.003 -1.030 [place], UA) Ketones, UA (test code = Ketones, UA) Negative Negative Urobilinogen, UA (test code = Urobilinogen, UA) 0.2 mg/dL 0.2 mg/dL Blood, UA (test code = Blood, UA) Negative Negative Mucus, UA (test code = Mucus, UA) Rare None Seen /HPF [id number] 05:24:00 Test Item Value Reference Range Comments [...] /100 WBCs <=4 /100 WBCs Basic Metabolic [id number] 05:24:00 Test Item Value Reference Range Comments [...] code = Calcium) 8.7 mg/dL 8.5-10.2 mg/dL Gmsyowfxdqoqp8712-20-89 05:24:00 Test Item Value Reference Range Comments Reticulocyte Manual % (test code = 4.8 % 0.8-2.5 % Reticulocyte Manual %) Absolute Manual Reticulocyte (test code = 148.3 10*9/L 27.0-1 20.0 10*9/L Absolute Manual Reticulocyte) Lactate cuhjmoyocvvuv5256-88-13 05:24:00 Test Item Value Reference Range Comments LDH (test code = LDH) 964 U/L 338-610 U/L [id number] 05:21:00 Test Item Value Reference Range Comments [...] Results Verified by Slide Scan) Basic metabolic [id number] 05:21:00 Test Item Value Reference Range Comments [...] = Calcium) 8.8 mg/dL 8.5-10.2 mg/dL Lactate utehqweqlghaw6716-80-45 05:21:00 Test Item Value Reference Range Comments LDH (test code = LDH) 951 U/L 338-610 U/L Mqhszstiylgah8262-46-04 05:21:00 Test Item Value Reference Range Comments Reticulocyte Manual % (test code = 7.3 % 0.8-2.5 % Reticulocyte Manual %) Absolute Manual Reticulocyte (test code = 214.6 10*9/L 27.0-1 20.0 10*9/L Absolute Manual Reticulocyte) Bilirubin, qlbfh2487-49-27 05:21:00 Test Item Value Reference Range Comments Total Bilirubin (test code = Total Bilirubin) 1.8 mg/dL 0. 0-1.2 mg/dL XR Chest PA and Xdmtmdq7554-09-45 18:28:49XR Chest PA and Lateral (10/10/2015 6:28 PM) Narrative EXAM: CHEST TWO VIEW DATE: 10/10/15 18:28:49 DICTATED: 10/10/15 18:56:39 INTERPRETATION LOCATION: [facility] CLINICAL INDICATION: 34 Year Old (M): Chest [...] Note Interface, Rad Results In - SatOct 11, 2015 12:25 AM EDT EXAM: CHEST TWO VIEW DATE: 10/10/15 18:28:49 DICTATED: 10/10/15 18:56:39 INTERPRETATION LOCATION: [facility] [place] CLINICAL INDICATION: 34 Year Old(M): Chest pain [...] IMPRESSION: Worsening bibasilar atelectasis vs consolidation.Basic Metabolic [id number] 17:13:00 Test Item Value Reference Range Comments [...] = Calcium) 9.0 mg/dL 8.5-10.2 mg/dL Troponin [id number] 17:13:00 Test Item Value Reference Range Comments Troponin I (test code = Troponin I) <0.034 <0.034 ng/mL Mgafkxoxaewsp9530-22-48 17:13:00 Test Item Value Reference Range Comments Reticulocyte Manual % (test code = 7.5 % 0.8-2.5 % Reticulocyte Manual %) Absolute Manual Reticulocyte (test code = 225.0 10*9/L 27.0-1 20.0 10*9/L Absolute Manual Reticulocyte) CBC w/ Ptcjpvkyjydz1627-27-40 17:13:00 Test Item Value Reference Range Comments [...] = Hypochromasia) Slight Not Pr esent Morphology [id number] 17:13:00 Test Item Value Reference Range Comments Smear Review Comments (test code = Smear Review See Comment Undefined Comments) Polychromasia (test code = Polychromasia) Moderate Not Pr esent Poikilocytosis (test code = Poikilocytosis) Moderate Not Present CBC w/ Igtyxefpciiv0182-69-54 17:13:00CBC w/ Differential (10/10/2015 5:13 PM) Specimen Blood Narrative The following orders were created for panel order CBC w/ Differential. Procedure Abnormality Status --------- ------ CBC w/ Differential[[id number]] AbnormalFinal result Morphology Review[[id number]] AbnormalFinal result Please view results for these [...] QTC 392 ms Calculation) EKG Calculated P [place] (test code = EKG Calculated 69 degrees P [place]) EKG Calculated R [place] (test code = EKG Calculated 22 degrees R [place]) EKG Calculated T [place] (test code = EKG Calculated 39 degrees T [place]) Comprehensive metabolic [id number] 15:57:00 Test Item Value Reference Range Comments [...] Alkaline 63 U/L 38-12 6 U/L Phosphatase) Dkkzdcspgbxvi9761-25-60 15:57:00 Test Item Value Reference Range Comments Reticulocyte Manual % (test code = 6.5 % 0.8-2.5 % Reticulocyte Manual %) Absolute Manual Reticulocyte (test code = 195.0 10*9/L 27.0-1 20.0 10*9/L Absolute Manual Reticulocyte) LDH, Lactate jxbvucxzfxswe4911-82-49 15:57:00 Test Item Value Reference Range Comments LDH (test code = LDH) 974 U/L 338-610 U/L CBC w/ Eudptlsaptyn6567-23-51 15:57:00 Test Item Value Reference Range Comments [...] = Hypochromasia) Slight Not Pr esent Morphology Vpsgxx6715-03-93 15:57:00 Test Item Value Reference Range Comments Smear Review Comments (test code = Smear Review See Comment Undefined Comments) Giant Platelets (test code = Giant Platelets) Present No t Present Polychromasia (test code = Polychromasia) Slight Not Pr esent Target Cells (test code = Target Cells) Moderate Not Pres ent Poikilocytosis (test code = Poikilocytosis) Moderate Not Present CBC and hklmafuxydhl1865-91-00 15:57:00CBC and differential (10/08/2015 3:57 PM) Specimen Blood Narrative The following orders were createdfor panel order CBC and differential. Procedure? Abnormality? Status? ---------? ? ------? CBC w/ Differential[[id number]]? Abnormal?Final result? Morphology Review[[id number]]? Abnormal?Final result? Please view results for these tests on the individual orders.LIGHT BLUE CITRATE EXTRA [id number] 15:57:00LIGHT BLUE CITRATE EXTRA TUBE (10/08/2015 3:57 PM) Specimen BloodXR Chest PA and Ufkbnnw1157-68-00 15:07:00XR Chest PA and Lateral (10/08/2015 3:07 PM) Narrative EXAM: [id number] 10/08/15?15:07:74QSS710 ([facility]) : XR CHEST PA AND LATERAL DICTATED: 10/08/15 15:16:04 INTERPRETATION LOCATION:?[facility] [place] CLINICAL INDICATION: 34 Year Old (M) with [...] Oct 08, 2015 3:18 PM EDT EXAM: [id number] 10/08/15 15:07:35VOA157 ([facility]) : XR CHEST PA AND LATERAL DICTATED: 10/08/15 15:16:04 INTERPRETATION LOCATION: [facility] [place] CLINICAL INDICATION: 34 Year Old (M) with [...] Results Verified by Slide Scan) Comprehensive Metabolic Wufus6537-22-08 07:09:00 Test Item Value Reference Range Comments [...] Alkaline 62 U/L 38-12 6 U/L Phosphatase) Rizoogxamaocf9291-84-93 07:09:00 Test Item Value Reference Range Comments Reticulocyte Manual % (test code = 8.7 % 0.8-2.5 % Reticulocyte Manual %) Absolute Manual Reticulocyte (test code = 241.9 10*9/L 27.0-1 20.0 10*9/L Absolute Manual Reticulocyte) Lactate ivudlbyqooqaw1937-07-56 07:09:00 Test Item Value Reference Range Comments LDH (test code = LDH) 834 U/L 338-610 U/L Basic metabolic oqpnd6905-94-90 05:21:00 Test Item Value Reference Range Comments [...] code = Calcium) 8.5 mg/dL 8.5-10.2 mg/dL Ecdgquqvr1289-94-29 05:21:00 Test Item Value Reference Range Comments Magnesium (test code = Magnesium) 1.8 mg/dL 1.6-2.2 mg/dL Wgrufhtrsw4773-80-88 05:21:00 Test Item Value Reference Range Comments Phosphorus (test code = Phosphorus) 4.7 mg/dL 2.4-4.5 mg/d L Phnexpykxhwbe8304-70-20 05:21:00 Test Item Value Reference Range Comments Reticulocyte Manual % (test code = 8.2 % 0.8-2.5 % Reticulocyte Manual %) Absolute Manual Reticulocyte (test code = 234.5 10*9/L 27.0-1 20.0 10*9/L Absolute Manual Reticulocyte) Lactate phywdqaezsfbx7982-48-35 05:21:00 Test Item Value Reference Range Comments LDH (test code = LDH) 808 U/L 338-610 U/L CBC w/ Mkabngtadfyp8962-02-31 05:21:00 Test Item Value Reference Range Comments [...] = Hypochromasia) Slight Not Pr esent Morphology Zytkrf7229-25-25 05:21:00 Test Item Value Reference Range Comments Smear Review Comments (test code = Smear Review See Comment Undefined Comments) Giant Platelets (test code = Giant Platelets) Present No t Present Polychromasia (test code = Polychromasia) Moderate Not Pr esent Target Cells (test code = Target Cells) Moderate Not Pres ent Poikilocytosis (test code = Poikilocytosis) Moderate Not Present CBC and hfjcxgcjnkkq1894-30-10 05:21:00CBC and differential (08/28/2015 5:21 AM) Specimen Blood Narrative The following orders were createdfor panel order CBC and differential. Procedure? Abnormality? Status? ---------? ? ------? CBC w/ Differential[[id number]]? Abnormal?Final result? Morphology Review[[id number]]? Abnormal?Final result? Please view results for these tests on the individual orders.XR Chest PA and Pmaronr7397-40-54 18:34:20XR Chest PA and Lateral (08/27/2015 6:34 PM) Narrative EXAM: CHEST TWO VIEW DATE: 08/27/15 18:34:20 DICTATED: 08/27/15 18:35:53 INTERPRETATION LOCATION: [facility] CLINICAL INDICATION: 34 Year Old [...] DATE:08/27/15 18:34:20 DICTATED: 08/27/15 18:35:53 INTERPRETATION LOCATION: [facility] CLINICAL INDICATION: 34 Year Old (M): SHORTNESS [...] osseous abnormalities. IMPRESSION: Unchanged appearance of the chest.Gyoeschuajtlh8874-17-02 17:50:00 Test Item Value Reference Range Comments Reticulocyte Manual % (test code = 10.0 % 0.8-2.5 % Reticulocyte Manual %) Absolute Manual Reticulocyte (test code = 324.0 10*9/L 27.0-1 20.0 10*9/L Absolute Manual Reticulocyte) CBC w/ Abrmpqkbchck6559-35-89 17:50:00 Test Item Value Reference Range Comments [...] Hypochromasia) Slight Not Pr esent LDH, Lactate yppggmzzhwoae3336-31-65 17:50:00 Test Item Value Reference Range Comments LDH (test code = LDH) 921 U/L 338-610 U/L Basic Metabolic Pvxvm1417-57-87 17:50:00 Test Item Value Reference Range Comments [...] = Calcium) 9.1 mg/dL 8.5-10.2 mg/dL Morphology Qztssc9763-42-00 17:50:00 Test Item Value Reference Range Comments Smear Review Comments (test code = Smear Review See Comment Undefined Comments) Polychromasia (test code = Polychromasia) Slight Not Pr esent Target Cells (test code = Target Cells) Moderate Not Pres ent Bilirubin, ffzyw9268-29-45 17:50:00 Test Item Value Reference Range Comments Total Bilirubin (test code = Total Bilirubin) 2.7 mg/dL 0. 0-1.2 mg/dL CBC and vcmvgjephcdg6039-50-09 17:50:00CBC and differential (08/27/2015 5:50 PM) Specimen Blood Narrative The following orders were createdfor panel order CBC and differential. Procedure? Abnormality? Status? ---------? ? ------? CBC w/ Differential[[id number]]? Abnormal?Final result? Morphology Review[[id number]]? Abnormal?Final result? Please view results for these tests on the individual orders. Encounters Start End Encounter Admission Attending Care Care Encounter Date/Time Date/Time Type Type Clinicians Facility Department ID 2019-05-05 Inpatient NAOMY [facility] [id number] 20:16:00 ERIN [id number] 2017-10-18 Inpatient ER STEPHANI [facility] [id number] 16:43:00 , JEANETTE [id number] 2015-10-12 Inpatient [facility] [id number] 11:14:02 [id number] 2015-10-12 Inpatient [facility] [id number] 00:00:00 _[id number] 2020-03-04 2020-03-04 Outpatient Desmond [facility] [id number] 00:00:00 00:00:00 rn [facility] [place] 2020-03-03 2020-03-03 Vignesh Ochoa Leidaallegra [facility] [id number] 00:00:00 00:00:00 Jamil Iqbal rn [facility] [place] 2020-02-26 2020-02-26 Outpatient Desmond [facility] [id number] 00:00:00 00:00:00 rn [facility] [place] 2020-02-19 2020-02-19 Outpatient Desmond [facility] [id number] 00:00:00 00:00:00 chao [facility] [place] 2020-02-17 2020-02-17 Outpatient Desmond [place] n [id number] 00:00:00 00:00:00 Rasheed guidry [facility] [place] 2020-02-15 2020-02-15 Outpatient Desmond [facility] [id number] 00:00:00 00:00:00 rn [facility] [place] 2020-02-08 2020-02-08 Outpatient Desmond [facility] [id number] 00:00:00 00:00:00 rn [facility] [place] 2020-02-05 2020-02-05 Outpatient Desmond [facility] [id number] 00:00:00 00:00:00 rn [facility] [place] 2020-02-03 2020-02-03 Outpatient Desmond [facility] [id number] 00:00:00 00:00:00 rn [facility] 2020-02-02 2020-02-02 Out[facility] [id number] 00:00:00 00:00:00 rn [facility] 2020-02-01 2020-02-01 Outpatient [facility] [id number] 00:00:00 00:00:00 rn [facility] 2020-01-31 2020-01-31 Outpatient [facility] [id number] 00:00:00 00:00:00 rn [facility] 2020-01-29 2020-01-29 Outpatient [facility] [id number] 00:00:00 00:00:00 rn [facility] 2020-01-28 2020-01-28 Outpatient [facility] [id number] 00:00:00 00:00:00 rn [facility] 2020-01-27 2020-01-27 Outpatient [facility] [id number] 00:00:00 00:00:00 rn [facility] 2020-01-26 2020-01-26 Outpatient [facility] [id number] 00:00:00 00:00:00 rn [facility] 2020-01-25 2020-01-25 Outpatient [facility] [id number] 00:00:00 00:00:00 rn [facility] 2020-01-24 2020-01-24 Outpatient [facility] [id number] 00:00:00 00:00:00 rn [facility] 2020-01-23 2020-01-23 Outpatient [facility] [id number] 00:00:00 00:00:00 rn [facility] 2020-01-22 2020-01-22 Outpatient [facility] [id number] 00:00:00 00:00:00 rn [facility] 2020-01-19 2020-01-19 Vignesh Ramirez [facility] 2 [id number] 00:00:00 00:00:00 Nely Iqbal rn [facility] 2020-01-18 2020-01-18 Outpatient [facility] [id number] 00:00:00 00:00:00 rn [facility] 2020-01-12 2020-01-12 Outpatient [facility] [id number] 00:00:00 00:00:00 rn [facility] 2020-01-11 2020-01-11 Outpatient [facility]mond [facility] [id number] 00:00:00 00:00:00 rn [facility] [place] 2020-01-06 2020-01-06 Outpatient Desmond [place] [id number] 00:00:00 00:00:00 Rasheed guidry [facility] [place] 2020-01-01 2020-01-01 Outpatient Desmond [facility] [id number] 00:00:00 00:00:00 rn [facility] [place] 2019-12-25 2019-12-25 Outpatient Desmond [facility] [id number] 00:00:00 00:00:00 rn [facility] [place] 2019-12-21 2019-12-21 Outpatient Desmond [facility] [id number] 00:00:00 00:00:00 rn [facility] [place] 2019-12-17 2019-12-17 Outpatient Desmond [place] [id number] 00:00:00 00:00:00 Rasheed guidry [facility] [place] 2019-12-14 2019-12-14 Outpatient Desmond [place] n [id number] 00:00:00 00:00:00 Rasheed guidry [facility] [place] 2019-12-13 2019-12-13 Outpatient Desmond [facility] [id number] 00:00:00 00:00:00 rn [facility] [place] 2019 2019 Outpatient Desmond [facility] [id number] 00:00:00 00:00:00 rn [facility] [place] 2019-12-11 2019-12-11 Outpatient Desmond [facility] [id number] 00:00:00 00:00:00 rn [facility] [place] 2019-12-10 2019-12-10 Outpatient [facility] [id number] 00:00:00 00:00:00 rn [facility] [place] 2019-12-09 2019-12-09 Outpatient [facility] [id number] 00:00:00 00:00:00 rn [facility] [place] 2019-12-08 2019-12-08 Outpatient [facility] [id number] 00:00:00 00:00:00 rn [facility] [place] 2019-12-07 2019-12-07 Outpatient [facility] [id number] 00:00:00 00:00:00 rn [facility] [place] 2019-12-06 2019-12-06 Outpatient Desmond [facility] [id number] 00:00:00 00:00:00 rn [facility] [place] 2019-12-05 2019-12-05 Outpatient Desmond [facility] [id number] 00:00:00 00:00:00 rn [facility] [place] 2019-12-04 2019-12-04 Outpatient Desmond [facility] [id number] 00:00:00 00:00:00 rn [facility] [place] 2019-12-03 2019-12-03 Outpatient Desmond [facility] [id number] 00:00:00 00:00:00 rn [facility] [place] 2019-12-02 2019-12-02 Outpatient Desmond [facility] [id number] 00:00:00 00:00:00 rn [facility] [place] 2019-11-30 2019-11-30 Outpatient Desmond [facility] [id number] 00:00:00 00:00:00 rn [facility] [place] 2019-11-26 2019-11-26 Outpatient Desmond [facility] [id number] 00:00:00 00:00:00 rn [facility] [place] 2019-11-23 2019-11-23 Outpatient Desmond [facility] [id number] 00:00:00 00:00:00 rn [facility] [place] 2019-11-13 2019-11-13 Outpatient Desmond R[facility] [id number] 00:00:00 00:00:00 rn [facility] [place] 2019-11-10 2019-11-10 Outpatient Desmond [place] n [id number] 00:00:00 00:00:00 Rasheed guidry [facility] [place] 2019-11-09 2019-11-09 Outpatient Desmond [facility] [id number] 00:00:00 00:00:00 rn [facility] [place] 2019-11-03 2019-11-03 Outpatient Desmond [facility] [id number] 00:00:00 00:00:00 rn [facility] [place] 2019-10-29 2019-10-29 Outpatient Desmond [facility] [id number] 00:00:00 00:00:00 rn [facility] [place] 2019-10-27 2019-10-27 Outpatient Desmond [facility] [id number] 00:00:00 00:00:00 rn [facility] [place] 2019-10-26 2019-10-26 Outpatient Desmond R[facility] [id number] 00:00:00 00:00:00 rn [facility] 2019-10-23 2019-10-23 Outpatient Desmond R[facility] [id number] 00:00:00 00:00:00 rn [facility] 2019-10-21 2019-10-21 Outpatient Desmond Rucker [id number] 00:00:00 00:00:00 rn [facility] [place] 2019-10-20 2019-10-20 Outpatient Desmond [facility] [id number] 00:00:00 00:00:00 rn [facility] [place] 2019-10-19 2019-10-19 Outpatient Desmond Rucker [id number] 00:00:00 00:00:00 rn [facility] [place] 2019-10-18 2019-10-18 Outpatient Desmond R[facility] [id number] 00:00:00 00:00:00 rn [facility] [place] 2019-10-16 2019-10-16 Outpatient Desmond Rucker [id number] 00:00:00 00:00:00 rn [facility] [place] 2019-10-15 2019-10-15 Outpatient Desmond [facility] [id number] 00:00:00 00:00:00 rn [facility] [place] 2019-10-14 2019-10-14 Outpatient Desmond [facility] [id number] 00:00:00 00:00:00 rn [facility] [place] 2019-10-12 2019-10-12 Outpatient Desmond [facility] [id number] 00:00:00 00:00:00 rn [facility] [place] 2019-10-10 2019-10-10 Outpatient Desmond Rucker [id number] 00:00:00 00:00:00 rn [facility] [place] 2019-10-09 2019-10-09 Outpatient Desmond Rucker [id number] 00:00:00 00:00:00 rn [facility] [place] 2019-10-08 2019-10-08 Outpatient Desmond Rucker [id number] 00:00:00 00:00:00 rn [facility] [place] 2019-10-07 2019-10-07 Outpatient Desmond R[facility] [id number] 00:00:00 00:00:00 rn [facility] [place] 2019-10-06 2019-10-06 Outpatient Desmond [facility] [id number] 00:00:00 00:00:00 rn [facility] [place] 2019-10-05 2019-10-05 Outpatient Desmond Rucker [id number] 00:00:00 00:00:00 rn [facility] [place] 2019-10-04 2019-10-04 Outpatient Desmond Rucker [id number] 00:00:00 00:00:00 rn [facility] [place] 2019-10-03 2019-10-03 Outpatient Desmond Rucker [id number] 00:00:00 00:00:00 rn [facility] [place] 2019-10-02 2019-10-02 Outpatient Desmond Rucker [id number] 00:00:00 00:00:00 rn [facility] [place] 2019-10-01 2019-10-01 Outpatient Desmond Rucker [id number] 00:00:00 00:00:00 rn [facility] [place] 2019-09-30 2019-09-30 Outpatient Desmond Rucker [id number] 00:00:00 00:00:00 rn [facility] [place] 2019-09-29 2019-09-29 Outpatient Desmond Rucker [id number] 00:00:00 00:00:00 rn [facility] [place] 2019-09-28 2019-09-28 Outpatient Desmond Rucker [id number] 00:00:00 00:00:00 rn [facility] [place] 2019-09-26 2019-09-26 Outpatient Desmond Rucker [id number] 00:00:00 00:00:00 rn [facility] [place] 2019-09-23 2019-09-23 Outpatient Desmond Rucker [id number] 00:00:00 00:00:00 rn [facility] [place] 2019-09-22 2019-09-22 Outpatient Desmond R[facility] [id number] 00:00:00 00:00:00 rn [facility] [place] 2019-09-21 2019-09-21 Outpatient Desmond Rucker [id number] 00:00:00 00:00:00 rn [facility] [place] 2019-09-18 2019-09-18 Vignesh Carrillo Desmond R[facility] 2 [id number] 00:00:00 00:00:00 Yoly Iqbal rn [facility] 2019-09-17 2019-09-17 Outpatient Desmond Rucker [id number] 00:00:00 00:00:00 [facility]n [facility] [place] 2019-09-15 2019-09-15 Outpatient Desmond Rucker [id number] 00:00:00 [...] Oncology Center Center 2019-08-25 2019-08-25 Outpatient Desmond Medelliner n [id number] 00:00:00 00:00:00 Rasheed guidry [facility] 2019-08-24 2019-08-24 Outpatient Desmond Rucker [id number] 00:00:00 00:00:00 [facility]n [facility] Center 2019-08-20 2019-08-20 Vignesh Carrillo Desmond Chaim 2 [id number] 00:00:00 00:00:00 Yoly Iqbal [facility]n [facility] Center 2019-08-18 2019-08-18 Outpatient Desmond Medelliner n [id number] 00:00:00 00:00:00 Rasheed guidry [facility] Center 2019-08-17 2019-08-17 Outpatient Desmond Rucker [id number] 00:00:00 00:00:00 rn [facility] Center 2019-08-10 2019-08-10 Outpatient Desmond Rucker [id number] 00:00:00 00:00:00 rn [facility] Center 2019-08-03 2019-08-03 Outpatient Desmond Rucker [id number] 00:00:00 00:00:00 rn [facility] Center 2019-07-30 2019-07-30 Vignesh Carrillo Desmond [facility] 2 [id number] 00:00:00 00:00:00 Yoly Iqbal rn [facility] Center 2019-07-22 2019-07-22 Outpatient Desmond Rucker [id number] 00:00:00 00:00:00 rn [facility] Center 2019-07-17 2019-07-17 Outpatient Desmond Rucker [id number] 00:00:00 00:00:00 rn [facility] Center 2019-07-16 2019-07-16 Vignesh Carrillo Desmond Rucker 2 [id number] 00:00:00 00:00:00 Yoly Iqbal rn [facility] Center 2019-07-15 2019-07-15 Outpatient Desmond Rucker [id number] 00:00:00 00:00:00 rn [facility] Center 2019-07-13 2019-07-13 Outpatient Desmond [facility] [id number] 00:00:00 00:00:00 rn [facility] Center 2019-07-09 2019-07-09 Outpatient Leidae Chaim [id number] 00:00:00 00:00:00 rn [facility] Center 2019-07-08 2019-07-08 Outpatient Leidae Chaim [id number] 00:00:00 00:00:00 rn [facility] Center 2019-07-06 2019-07-06 Outpatient Desmond Rucker [id number] 00:00:00 00:00:00 rn [facility] [place] 2019-07-02 2019-07-02 Outpatient Desmond Rucker [id number] 00:00:00 00:00:00 rn [facility] [place] 2019-07-01 2019-07-01 Outpatient [facility] [id number] 00:00:00 23:59:00 _[id number] 2019-07-01 Outpatient Desmond Rucker [id number] 00:00:00 00:00:00 rn [facility] Center 2019-06-29 2019-06-29 Outpatient Desmond Rucker [id number] 00:00:00 00:00:00 rn [facility] Center 2019-06-25 2019-06-25 Outpatient Desmond Rucker [id number] 00:00:00 00:00:00 rn [facility] Center 2019-06-24 2019-06-24 Vignesh Medellin Desmond Rucker [id number] 00:00:00 00:00:00 Dr. Rasheed Iqbal rn [facility] Center 2019-06-22 2019-06-22 Outpatient Desmond [facility] [id number] 00:00:00 00:00:00 rn [facility] Center 2019-06-18 2019-06-18 Outpatient Desmond Rucker [id number] 00:00:00 00:00:00 rn [facility] Center 2019-06-17 2019-06-17 Outpatient Desmond Rucker [id number] 00:00:00 00:00:00 rn [facility] Center 2019-06-15 2019-06-15 Outpatient Desmond Rucker [id number] 00:00:00 00:00:00 rn [facility] Center 2019-06-12 2019-06-12 Outpatient Desmond Rucker [id number] 00:00:00 00:00:00 rn [facility] Center 2019-06-08 2019-06-08 Outpatient Desmond Medellin n [id number] 00:00:00 00:00:00 Rasheed guidry [facility] Center 2019-06-04 2019-06-04 Outpatient Desmond Rucker [id number] 00:00:00 00:00:00 rn [facility] Center 2019-06-02 2019-06-02 Outpatient Desmond Rucker [id number] 00:00:00 00:00:00 rn [facility] Center 2019-05-28 2019-05-28 Outpatient Desmond Rucker [id number] 00:00:00 00:00:00 rn [facility] Center 2019-05-27 2019-05-27 Outpatient Desmond Rucker [id number] 00:00:00 00:00:00 rn [facility] Center 2019-05-26 2019-05-26 Outpatient Desmond Rucker [id number] 00:00:00 00:00:00 rn [facility] Center 2019-05-25 2019-05-25 Outpatient Desmond Medellin n [id number] 00:00:00 00:00:00 Rasheed guidry [facility] Center 2019-05-20 2019-05-20 Outpatient Desmond Medelliner n [id number] 00:00:00 00:00:00 Rasheed guidry [facility] Center 2019-05-18 2019-05-18 Outpatient Desmond Rucker [id number] 00:00:00 00:00:00 rn [facility] Center 2019-05-15 2019-05-15 Outpatient Desmond Rucker [id number] 00:00:00 00:00:00 rn [facility] Center 2019-05-14 2019-05-14 Outpatient Desmond Rucker [id number] 00:00:00 00:00:00 rn [facility] Center 2019-05-11 2019-05-11 Outpatient Desmond Rucker [id number] 00:00:00 00:00:00 rn [facility] Center 2019-05-09 2019-05-09 Outpatient Desmond Rucker [id number] 00:00:00 00:00:00 rn [facility] Center 2019-05-07 2019-05-07 Outpatient Desmond Rucker [id number] 00:00:00 00:00:00 rn [facility] Center 2019-05-05 2019-05-05 Outpatient Desmond Rucker [id number] 00:00:00 00:00:00 [facility]n [facility] [place] 2019-05-05 2019-05-05 [facility] [id number] 00:00:00 00:00:00 7 2019-05-04 2019-05-04 Outpatient Desmond Rucker [id number] 00:00:00 00:00:00 rn [facility] Center 2019-05-03 2019-05-03 Outpatient Desmond Rucker [id number] 00:00:00 00:00:00 rn [facility] Center 2019-05-02 2019-05-02 Outpatient Desmond Rucker [id number] 00:00:00 00:00:00 rn [facility] Center 2019-05-01 2019-05-01 Outpatient Desmond Rucker [id number] 00:00:00 00:00:00 rn [facility] Center 2019-04-29 2019-04-29 Outpatient Desmond Rucker [id number] 00:00:00 00:00:00 rn [facility] Center 2019-04-28 2019-04-28 Outpatient Desmond Rucker [id number] 00:00:00 00:00:00 rn [facility] Center 2019-04-27 2019-04-27 Outpatient Desmond Rucker [id number] 00:00:00 00:00:00 rn [facility] Center 2019-04-23 2019-04-23 Outpatient Desmond Rucker [id number] 00:00:00 00:00:00 rn [facility] Center 2019-04-21 2019-04-21 Outpatient Desmond Rucker [id number] 00:00:00 00:00:00 rn [facility] Center 2019-04-20 2019-04-20 Vignesh Carrillo [facility] 2 [id number] 00:00:00 00:00:00 Yoly Iqbal rn [facility] Center 2019-04-16 2019-04-16 Outpatient Desmond Rucker [id number] 00:00:00 00:00:00 rn [facility] Center 2019-04-13 2019-04-13 Outpatient Desmond Rucker [id number] 00:00:00 00:00:00 rn [facility] Center 2019-04-11 2019-04-11 Outpatient Desmond Rucker [id number] 00:00:00 00:00:00 rn [facility] Center 2019-04-09 2019-04-09 Outpatient Desmond Rucker [id number] 00:00:00 00:00:00 rn [facility] [place] 2019-04-08 2019-04-08 Outpatient Desmond Rucker [id number] 00:00:00 00:00:00 rn [facility] [place] 2019-04-06 2019-04-06 Outpatient Desmond Rucker [id number] 00:00:00 00:00:00 rn [facility] Center 2019-04-05 2019-04-05 Outpatient Desmond Rucker [id number] 00:00:00 00:00:00 rn [facility] Center 2019-04-03 2019-04-03 Outpatient Desmond Rucker [id number] 00:00:00 00:00:00 rn [facility] Center 2019-04-01 2019-04-01 Outpatient Desmond Rucker [id number] 00:00:00 00:00:00 rn [facility] Center 2019-03-30 2019-03-30 Outpatient Desmond Rucker [id number] 00:00:00 00:00:00 rn [facility] Center 2019-03-27 2019-03-27 Outpatient Desmond Rucker [id number] 00:00:00 00:00:00 rn [facility] Center 2019-03-26 2019-03-26 Outpatient Desmond Rucker [id number] 00:00:00 00:00:00 rn [facility] Center 2019-03-23 2019-03-23 Outpatient Desmond Rucker [id number] 00:00:00 00:00:00 rn [facility] [place] 2019-03-18 2019-03-18 Outpatient Desmond Rucker [id number] 00:00:00 00:00:00 rn [facility] [place] 2019-03-16 2019-03-16 Outpatient Desmond Rucker [id number] 00:00:00 00:00:00 rn [facility] [place] 2019-03-14 2019-03-14 Outpatient Desmond Rucker [id number] 00:00:00 00:00:00 rn [facility] [place] 2019-03-12 2019-03-12 Vignesh Ramirez [facility] 2 [id number] 00:00:00 00:00:00 Nely Iqbal rn [facility] [place] 2019-03-11 2019-03-11 Outpatient Desmond Rucker [id number] 00:00:00 00:00:00 rn [facility] [place] 2019-03-09 2019-03-09 Outpatient Desmond Rucker [id number] 00:00:00 00:00:00 rn [facility] [place] 2019-03-05 2019-03-05 Outpatient [facility] [id number] 00:00:00 00:00:00 _[id number] 2019-03-04 Outpatient Desmond Rucker [id number] 00:00:00 00:00:00 rn [facility] [place] 2019-03-02 2019-03-02 Outpatient Desmond Rucker [id number] 00:00:00 00:00:00 rn [facility] [place] 2019-02-27 2019-02-27 Outpatient Desmond Medellin n [id number] 00:00:00 00:00:00 Rasheed guidry [facility] [place] 2019-02-25 2019-02-25 Outpatient Desmond Rucker [id number] 00:00:00 00:00:00 rn [facility] [place] 2019-02-24 2019-02-24 Outpatient Desmond Rucker [id number] 00:00:00 00:00:00 rn [facility] [place] 2019-02-23 2019-02-23 Outpatient Desmond Rucker [id number] 00:00:00 00:00:00 rn [facility] [place] 2019-02-22 2019-02-22 Outpatient Desmond Rucker [id number] 00:00:00 00:00:00 rn [facility] [place] 2019-02-21 2019-02-21 Outpatient Desmond Rucker [id number] 00:00:00 00:00:00 rn [facility] Center 2019-02-20 2019-02-20 Outpatient Desmond Rucker [id number] 00:00:00 00:00:00 rn [facility] Center 2019-02-19 2019-02-19 Outpatient Desmond Rucker [id number] 00:00:00 00:00:00 rn [facility] Center 2019-02-18 2019-02-18 Outpatient Desmond Rucker [id number] 00:00:00 00:00:00 rn [facility] Center 2019-02-13 2019-02-13 Outpatient Desmond Medelliner n [id number] 00:00:00 00:00:00 Rasheed rn [facility] Center 2019-02-12 2019-02-12 Outpatient Desmond Rucker [id number] 00:00:00 00:00:00 rn [facility] Center 2019-02-11 2019-02-11 Outpatient Desmond Rucker [id number] 00:00:00 00:00:00 rn [facility] Center 2019-02-10 2019-02-10 Outpatient Desmond Rucker [id number] 00:00:00 00:00:00 rn [facility] Center 2019-02-09 2019-02-09 Outpatient Desmond Rucker [id number] 00:00:00 00:00:00 rn [facility] Center 2019-02-08 2019-02-08 Outpatient Desmond Rucker [id number] 00:00:00 00:00:00 rn [facility] Center 2019-02-07 2019-02-07 Outpatient Desmond Rucker [id number] 00:00:00 00:00:00 rn [facility] Center 2019-02-06 2019-02-06 Outpatient Desmond Rucker [id number] 00:00:00 00:00:00 rn [facility] Center 2019-02-052019-012019-02-05 Outpatient Desmond Rucker [id number] 00:00:00 00:00:00 rn [facility] Center 2019-02-04 2019-02-04 Outpatient Desmond Rucker [id number] 00:00:00 00:00:00 rn [facility] Center 2019-02-03 2019-02-03 Outpatient Desmond Rucker [id number] 00:00:00 00:00:00 rn [facility] Center 2019-02-02 2019-02-02 Outpatient Desmond Rucker [id number] 00:00:00 00:00:00 rn [facility] Center 2019-01-31 2019-01-31 Outpatient Desmond Rucker [id number] 00:00:00 00:00:00 rn [facility] Center 2019-01-29 2019-01-29 Outpatient Desmond Rucker [id number] 00:00:00 00:00:00 rn [facility] [place] 2019-01-29 2019-01-29 [facility] [id number] 00:00:00 00:00:00 4 2019-01-29 2019-01-29 [facility] [id number] 00:00:00 00:00:00 2 2019-01-28 2019-01-28 Outpatient Desmond Rucker [id number] 00:00:00 00:00:00 rn [facility] [place] 2019-01-26 2019-01-26 Outpatient Desmond Medellinmika n [id number] 00:00:00 00:00:00 Rasheed guidry [facility] [place] 2019-01-19 2019-01-19 Outpatient Desmond Rucker [id number] 00:00:00 00:00:00 rn [facility] [place] 2019-01-16 2019-01-16 Walter RamirezDesmond poole 2 [id number] 00:00:00 00:00:00 Nely Iqbal rn [facility] [place] 2019-01-15 2019-01-15 Outpatient Desmond Rucker [id number] 00:00:00 00:00:00 rn [facility] [place] 2019-01-12 2019-01-12 Outpatient Desmond Rucker [id number] 00:00:00 00:00:00 rn [facility] [place] 2019-01-10 2019-01-10 Outpatient Desmond Rucker [id number] 00:00:00 00:00:00 rn [facility] [place] 2019-01-09 2019-01-09 Outpatient Desmond Rucker [id number] 00:00:00 00:00:00 rn [facility] [place] 2019-01-06 2019-01-06 Outpatient Desmond Rucker [id number] 00:00:00 00:00:00 rn [facility] [place] 2019-01-05 2019-01-05 Outpatient Desmond Medellin n [id number] 00:00:00 00:00:00 Rasheed rn [facility] [place] 2019-01-04 2019-01-04 Outpatient Desmond Rucker [id number] 00:00:00 00:00:00 rn [facility] [place] 2019-01-03 2019-01-03 Outpatient Desmond Rucker [id number] 00:00:00 00:00:00 rn [facility] [place] 2019-01-02 2019-01-02 Outpatient Desmond Rucker [id number] 00:00:00 00:00:00 rn [facility] [place] 2019-01-01 2019-01-01 Outpatient Desmond Rucker [id number] 00:00:00 00:00:00 rn [facility] [place] 2018-12-31 2018-12-31 Outpatient Desmond Rucker [id number] 00:00:00 00:00:00 rn [facility] [place] 2018-12-30 2018-12-30 Outpatient Desmond Rucker [id number] 00:00:00 00:00:00 rn [facility] [place] 2018-12-29 2018-12-29 Outpatient Desmond Rucker [id number] 00:00:00 00:00:00 rn [facility] [place] 2018-12-28 2018-12-28 Outpatient Desmond Rucker [id number] 00:00:00 00:00:00 rn [facility] [place] 2018-12-27 2018-12-27 Outpatient Desmond Rucker [id number] 00:00:00 00:00:00 rn [facility] [place] 2018-12-26 2018-12-26 Outpatient Desmond Rucker [id number] 00:00:00 00:00:00 rn [facility] [place] 2018-12-25 2018-12-25 Outpatient Desmond Rucker [id number] 00:00:00 00:00:00 rn [facility] [place] 2018-12-24 2018-12-24 Outpatient Desmond Rucker [id number] 00:00:00 00:00:00 rn [facility] [place] 2018-12-22 2018-12-22 Outpatient Desmnod Rucker [id number] 00:00:00 00:00:00 rn [facility] [place] 2018-12-21 2018-12-21 Outpatient Desmond Rucker [id number] 00:00:00 00:00:00 rn [facility] [place] 2018-12-20 2018-12-20 Outpatient Desmond Rucker [id number] 00:00:00 00:00:00 rn [facility] [place] 2018-12-18 2018-12-18 Outpatient Desmond Rucker [id number] 00:00:00 00:00:00 rn [facility] [place] 2018-12-15 2018-12-15 Outpatient Desmond Rucker [id number] 00:00:00 00:00:00 rn [facility] [place] 2018-12-11 2018-12-11 Outpatient Desmond Rucker [id number] 00:00:00 00:00:00 rn [facility] [place] 2018-12-08 2018-12-08 Outpatient Desmond Rucker [id number] 00:00:00 00:00:00 rn [facility] [place] 2018-12-04 2018-12-04 JamesVignesh [facility] 2 [id number] 00:00:00 00:00:00 Nely Iqbal rn [facility] [place] 2018-12-01 2018-12-01 Outpatient Desmond Rucker [id number] 00:00:00 00:00:00 rn [facility] [place] 2018-11-28 2018-11-28 Outpatient Desmond Medelliner n [id number] 00:00:00 00:00:00 Rasheed guidry [facility] [place] 2018-11-24 2018-11-24 Outpatient Desmond Rucker [id number] 00:00:00 00:00:00 rn [facility] [place] 2018-11-22 2018-11-22 Outpatient Desmond Rucker [id number] 00:00:00 00:00:00 rn [facility] [place] 2018-11-19 2018-11-19 Outpatient Desmond Rucker [id number] 00:00:00 00:00:00 rn [facility] [place] 2018-11-17 2018-11-17 Outpatient Desmond Rucker [id number] 00:00:00 00:00:00 rn [facility] [place] 2018-11-16 2018-11-16 Outpatient Desmond Rucker [id number] 00:00:00 00:00:00 rn [facility] [place] 2018-11-15 2018-11-15 Outpatient Desmond Rucker [id number] 00:00:00 00:00:00 rn [facility] [place] 2018-11-14 2018-11-14 Outpatient Desmond Rucker [id number] 00:00:00 00:00:00 rn [facility] [place] 2018-11-13 2018-11-13 Outpatient Desmond Rucker [id number] 00:00:00 00:00:00 rn [facility] [place] 2018-11-12 2018-11-12 Outpatient Desmond Rucker [id number] 00:00:00 00:00:00 rn [facility] [place] 2018-11-11 2018-11-11 Outpatient Desmond Rucker [id number] 00:00:00 00:00:00 rn [facility] [place] 2018-11-10 2018-11-10 Outpatient Desmond Rucker [id number] 00:00:00 00:00:00 rn [facility] [place] 2018-11-09 2018-11-09 Outpatient Desmond Rucker [id number] 00:00:00 00:00:00 rn [facility] [place] 2018-11-08 2018-11-08 Outpatient Desmond Rucker [id number] 00:00:00 00:00:00 rn [facility] [place] 2018-11-06 2018-11-06 Outpatient Desmond Rucker [id number] 00:00:00 00:00:00 rn [facility] [place] 2018-11-03 2018-11-03 Outpatient Desmond Rucker [id number] 00:00:00 00:00:00 rn [facility] [place] 2018-10-31 2018-10-31 Desmond Ramirez [id number] 00:00:00 00:00:00 Nely Smith [facility]n [facility] [place] 2018-10-30 2018-10-30 [facility] [id number] 00:00:00 00:00:00 9 2018-10-27 2018-10-27 Outpatient Desmond Rucker [id number] 00:00:00 00:00:00 rn [facility] [place] 2018-10-22 2018-10-22 Outpatient Desmond Rucker [id number] 00:00:00 00:00:00 rn [facility] [place] 2018-10-20 2018-10-20 Outpatient Desmond Rucker [id number] 00:00:00 00:00:00 rn [facility] [place] 2018-10-17 2018-10-17 Outpatient Desmond Rucker [id number] 00:00:00 00:00:00 rn [facility] Center 2018-10-14 2018-10-14 Outpatient Desmond Rucker [id number] 00:00:00 00:00:00 rn [facility] Center 2018-10-13 2018-10-13 Outpatient Desmond Rucker [id number] 00:00:00 00:00:00 rn [facility] Center 2018-10-06 2018-10-06 Outpatient Desmond Rucker [id number] 00:00:00 00:00:00 rn [facility] 2018-09-25 2018-09-25 Vignesh Ramirez [facility] 2 [id number] 00:00:00 00:00:00 Nely Iqbal rn [facility] Center 2018-09-24 2018-09-24 Outpatient Desmond Medellin n [id number] 00:00:00 00:00:00 Rasheed guidry [facility] 2018-09-19 2018-09-19 Outpatient Desmond Medellin n [id number] 00:00:00 00:00:00 Rasheed guidry [facility] 2018-09-16 2018-09-16 Outpatient Desmond Rucker [id number] 00:00:00 00:00:00 rn [facility] 2018-09-10 2018-09-10 Outpatient Desmond Rucker [id number] 00:00:00 00:00:00 rn [facility] Center 2018-09-08 2018-09-08 Outpatient Desmond Rucker [id number] 00:00:00 00:00:00 rn [facility] 2018-09-07 2018-09-07 Outpatient Desmond Rucker [id number] 00:00:00 00:00:00 rn [facility] 2018-09-06 2018-09-06 Outpatient Desmond Rucker [id number] 00:00:00 00:00:00 rn [facility] 2018-09-05 2018-09-05 Outpatient Desmond Rucker [id number] 00:00:00 00:00:00 rn [facility] 2018-09-04 2018-09-04 Outpatient Desmond Rucker [id number] 00:00:00 00:00:00 rn [facility] 2018-09-03 2018-09-03 [id number]:00 00:00:00 [facility] [place] 2018-09-02 2018-09-02 [facility] [id number] 00:00:00 00:00:00 rn [facility] [place] 2018-09-01 2018-09-01 [facility] [id number] 00:00:00 00:00:00 rn [facility] [place] 2018-08-31 2018-08-31 [facility] [id number] 00:00:00 00:00:00 rn [facility] [place] 2018-08-20 2018-08-20 James Desmond Medellin [facility] 2 [id number] 00:00:00 00:00:00 Nely Iqbal rn [facility] [place] 2018-08-19 2018-08-19 [facility] [id number] 00:00:00 00:00:00 rn [facility] [place] 2018-08-13 2018-08-13 [facility] [id number] 00:00:00 00:00:00 rn [facility] [place] 2018-08-08 2018-08-08 Outpatient Desmond Rucker [id number] 00:00:00 00:00:00 rn [facility] [place] 2018-08-04 2018-08-04 Outpatient Desmond Rucker [id number] 00:00:00 00:00:00 rn [facility] [place] 2018-07-31 2018-07-31 Outpatient Desmond Medellin n [id number] 00:00:00 00:00:00 Rasheed guidry [facility] [place] 2018-07-29 2018-07-29 Outpatient Desmond Medellin n [id number] 00:00:00 00:00:00 Rasheed guidry [facility] [place] 2018-07-24 2018-07-24 Outpatient Desmond Rucker [id number] 00:00:00 00:00:00 rn [facility] [place] 2018-07-23 2018-07-23 Gerardo Desmond Medellin 2 [id number] 00:00:00 00:00:00 Yoly Iqbal rn [facility] [place] 2018-07-23 2018-07-23 [facility] [id number] 00:00:00 00:00:00 6 2018-07-22 2018-07-22 Emergency JOE BRUNER [facility] [id number] 00:19:01 03:51:00 2018-07-22 2018-07-22 [facility] [facility] [id number] 00:00:00 00:00:00 4 2018-07-18 2018-07-18 Outpatient Desmond Rucker [id number] 00:00:00 00:00:00 rn [facility] [place] 2018-07-14 2018-07-14 Outpatient Desmond Medellin n [id number] 00:00:00 00:00:00 Rasheed guidry [facility] [place] 2018-07-13 2018-07-13 Outpatient Desmond Rucker [id number] 00:00:00 00:00:00 rn [facility] [place] 2018-07-11 2018-07-11 Outpatient Desmond Medellin n [id number] 00:00:00 00:00:00 Rasheed guidry [facility] [place] 2018-07-09 2018-07-09 Outpatient Desmond Medelliner n [id number] 00:00:00 00:00:00 Rasheed guidry [facility] [place] 2018-07-07 2018-07-07 Outpatient Desmond Medelliner n [id number] 00:00:00 00:00:00 Rasheed guidry [facility] [place] 2018-07-06 2018-07-06 Outpatient Desmond Rucker [id number] 00:00:00 00:00:00 rn [facility] [place] 2018-06-26 2018-06-26 Outpatient Desmond Medellin n [id number] 00:00:00 00:00:00 Rasheed guidry [facility] [place] 2018-06-25 2018-06-25 [facility]ardo[facility]ignesh [facility] 2 [id number] 00:00:00 00:00:00 Yoly Iqbal rn [facility] [place] 2018-06-24 2018-06-[address] [facility] [id number] 00:00:00 00:00:00 rn [facility] [place] 2018-06-23 2018-06-23 Outpatient [facility] [id number] 00:00:00 00:00:00 rn [facility] [place] 2018-06-23 2018-06-23 [facility] [id number] 00:00:00 00:00:00 2 2018-06-23 2018-06-23 [facility] [id number] 00:00:00 00:00:00 6 2018-06-19 2018-06-19 Outpatient Desmond [facility] [id number] 00:00:00 00:00:00 rn [facility] [place] 2018-06-18 2018-06-18 Outpatient Desmond [facility] [id number] 00:00:00 00:00:00 rn [facility] [place] 2018-06-17 2018-06-17 Outpatient Desmond [facility] [id number] 00:00:00 00:00:00 rn [facility] [place] 2018-06-16 2018-06-16 Outpatient Desmond [facility] [id number] 00:00:00 00:00:00 rn [facility] [place] 2018-06-15 2018-06-15 Outpatient Desmond [facility] [id number] 00:00:00 00:00:00 rn [facility] [place] 2018-06-14 2018-06-14 Outpatient Desmond [facility] [id number] 00:00:00 00:00:00 rn [facility] [place] 2018-06-12 2018-06-12 Outpatient Desmond [facility] [id number] 00:00:00 00:00:00 rn [facility] [place] 2018-06-11 2018-06-11 Outpatient Desmond Rucker [id number] 00:00:00 00:00:00 rn [facility] [place] 2018-05-29 2018-05-29 [facility] [id number] 00:00:00 00:00:00 3 2018-05-22 2018-05-22 Outpatient Desmond [facility] [id number] 00:00:00 00:00:00 rn [facility] [place] 2018-05-21 2018-05-21 Gerardo Desmond Medellin [facility] [id number] 00:00:00 00:00:00 Yoly Iqbal rn [facility] [place] 2018-05-19 2018-05-19 [facility] [id number] 00:00:00 00:00:00 8 2018-05-14 2018-05-14 Outpatient [facility] Desmond Casarez n [id number] 00:00:00 00:00:00 Rasheed rn [facility] [place] 2018-05-11 2018-05-11 Outpatient Desmond [facility] [id number] 00:00:00 00:00:00 rn [facility] [place] 2018-05-09 2018-05-09 Outpatient EL [facility] [id number] 00:00:00 00:00:00 _[id number] 2018-05-08 Outpatient Desmond [facility] [id number] 00:00:00 00:00:00 rn [facility] [place] 2018-05-07 2018-05-07 Outpatient [facility] [id number] 00:00:00 00:00:00 rn [facility] [place] 2018-05-06 2018-05-06 Outpatient [facility] [id number] 00:00:00 00:00:00 rn [facility] [place] 2018-05-05 2018-05-05 Outpatient Desmond [facility] [id number] 00:00:00 00:00:00 rn [facility] [place] 2018-05-02 2018-05-02 Outpatient [facility] [id number] 00:00:00 00:00:00 rn [facility] [place] 2018-05-01 2018-05-01 Outpatient Desmond [facility] [id number] 00:00:00 00:00:00 rn [facility] [place] 2018-04-30 2018-04-30 Outpatient Desmond [facility] [id number] 00:00:00 00:00:00 rn [facility] [place] 2018-04-26 2018-04-26 [facility] [id number] 00:00:00 00:00:00 7 2018-04-23 2018-04-23 Outpatient EL [facility] [id number] 14:50:57 23:59:00 _[id number] 2018-04-23 2018-04-23 [facility] [id number] 14:50:57 14:50:57 2 2018-04-23 2018-04-23 Outpatient EL [facility] [id number] 00:00:00 00:00:00 _[id number] 2018-04-23 [facility] [id number] 00:00:00 00:00:00 0 2018-04-23 2018-04-23 [facility] [id number] 00:00:00 00:00:00 9 2018-04-21 2018-04-22 Emergency [facility] [id number] 23:57:34 11:10:00 2018-04-21 2018-04-21 Emergency ER EMMANUEL [facility] [id number] 21:26:42 23:01:00 REI _[id number] 2018-04-21 2018-04-21 Emergency [facility] [id number] 21:26:42 23:01:00 0 2018-04-21 2018-04-21 Emergency [facility] [id number] 21:53:13 21:53:13 _[id number] 2018-04-21 2018-04-21 Emergency ER [facility] [id number] 21:13:00 21:13:00 _[id number] 2018-03-19 2018-03-19 Outpatient EL [facility] [id number] 14:21:51 23:59:00 _[id number] 2018-03-19 2018-03-19 Outpatient EL [facility] [id number] 00:00:00 00:00:00 _[id number] 2018-03-17 [facility] [id number] 00:00:00 00:00:00 7 2018-02-24 2018-02-24 Outpatient [facility] [id number] 00:00:00 00:00:00 rn [facility] [place] 2018-02-19 2018-02-19 Outpatient [facility] [id number] 00:00:00 00:00:00 rn [facility] [place] 2018-02-19 2018-02-19 [facility] [id number] 00:00:00 00:00:00 3 2018-02-18 2018-02-[address] [facility] [id number] 00:00:00 00:00:00 rn [facility] [place] 2018-02-18 2018-02-18 [facility] [id number] 00:00:00 00:00:00 2 2018-02-16 2018-02-[address] [facility] [id number] 00:00:00 00:00:00 rn [facility] [place] 2018-02-07 2018-02-07 Outpatient EL [facility] [id number] 14:24:12 15:35:29 _[id number] 2018-02-07 2018-02-07 [facility] [id number] 14:24:12 15:35:29 6 2018-02-07 2018-02-07 Outpatient EL [facility] [id number] 00:00:00 00:00:00 _[id number] 2018-01-22 2018-01-22 Outpatient EL [facility] [id number] 14:38:13 14:52:51 _[id number] 2018-01-22 2018-01-22 Outpatient EL [facility] [id number] 00:00:00 00:00:00 _[id number] 2018-01-21 [facility]patient [facility] [id number] 00:00:00 00:00:00 9 2018-01-16 2018-01-16 [facility] [id number] 00:00:00 00:00:00 2 2017-12-25 2017-12-25 Outpatient EL [facility] [id number] 14:20:03 14:31:39 _[id number] 2017-12-25 2017-12-25 Outpatient EL [facility] [id number] 00:00:00 00:00:00 _[id number] 2017-12-25 [facility] [id number] 00:00:00 00:00:00 1 2017-11-27 2017-11-27 [facility] [id number] 14:30:54 23:59:00 8 2017-11-27 2017-11-27 Outpatient EL [facility] [id number] 12:29:20 23:59:00 _[id number] 2017-11-27 2017-11-27 Outpatient EL SCULLIN, [facility] [id number] 14:30:54 14:30:54 EV _[id number] 2017-11-27 2017-11-27 [facility] [id number] 12:29:20 13:30:00 3 2017-11-27 2017-11-27 Outpatient EL [facility] [id number] 00:00:00 00:00:00 _[id number] 2017-11-08 2017-11-08 Outpatient EL [facility] [id number] 09:49:36 11:59:53 _[id number] 2017-11-08 2017-11-08 [facility] [id number] 09:49:36 11:59:53 5 2017-11-08 2017-11-08 Outpatient EL [facility] [id number] 00:00:00 00:00:00 _[id number] 2017-10-30 2017-10-30 Outpatient [facility] [id number] 00:00:00 00:00:00 0 2017-10-27 2017-10-27 [facility] [id number] 00:00:00 00:00:00 2 2017-10-19 2017-10-26 Inpatient ER VENANCIO PENN [facility] [id number] 01:41:00 17:33:29 _[id number] 2017-10-19 2017-10-26 Inpatient [facility] [id number] 01:41:00 17:33:29 0 2017-10-24 2017-10-24 Outpatient [facility] [id number] 00:00:00 00:00:00 2 2017-10-21 2017-10-21 Outpatient [facility] [id number] 00:00:00 00:00:00 6 2017-10-19 2017-10-19 Inpatient ER [facility] [id number] 02:38:37 23:59:00 _[id number] 2017-10-18 2017-10-18 Outpatient [facility] [id number] 00:00:00 00:00:00 6 2017-09-30 2017-09-30 [facility] [id number] 00:00:00 00:00:00 1 2017-09-25 2017-09-25 Outpatient EL [facility] [id number] 14:31:14 23:59:00 _[id number] 2017-09-25 2017-09-25 Outpatient EL [facility] [id number] 00:00:00 00:00:00 _[id number] 2017-09-23 2017-09-23 Outpatient [facility] [id number] 00:00:00 00:00:00 1 2017-08-30 2017-08-30 Emergency ER REBEKAH [facility] [id number] 11:10:33 17:35:00 PUSHPA [id number] 2017-08-30 2017-08-30 Emergency [facility] [id number] 11:10:33 17:35:00 1 2017-08-30 2017-08-30 Emergency [facility] [id number] 12:51:39 12:51:39 _[id number] 2017-08-30 2017-08-30 Emergency ER [facility] [id number] 11:04:00 11:04:00 _[id number] 2017-08-16 2017-08-16 Outpatient EL [facility] [id number] 12:55:00 15:51:46 _[id number] 2017-08-16 2017-08-16 Outpatient EL [facility] [id number] 00:00:00 00:00:00 _[id number] 2017-07-31 2017-07-31 Outpatient EL [facility] [id number] 14:21:17 23:59:00 _[id number] 2017-07-31 2017-07-31 Outpatient EL [facility] [id number] 00:00:00 00:00:00 _[id number] 2017-07-03 2017-07-03 Outpatient EL [facility] [id number] 15:42:13 23:59:00 _[id number] 2017-07-03 2017-07-03 Outpatient EL [facility] [id number] 00:00:00 00:00:00 _[id number] 2017-06-05 2017-06-05 Emergency ER AMANDA, [facility] [id number] 06:44:26 14:03:00 ADARSH _[id number] 2017-06-05 2017-06-05 Emergency [facility] [id number] 06:44:26 14:03:00 6 2017-06-05 2017-06-05 Emergency [facility] [id number] 12:18:51 12:18:51 _[id number] 2017-06-05 2017-06-05 Emergency [facility] [id number] 10:20:41 10:20:41 _[id number] 2017-06-05 2017-06-05 Emergency [facility] [id number] 08:47:27 08:47:27 _[id number] 2017-06-05 2017-06-05 Emergency ER [facility] [id number] 06:43:00 06:43:00 _[id number] 2017-06-05 2017-06-05 Emergency [facility] [id number] 00:00:00 00:00:00 _14 2017-05-17 2017-05-17 Outpatient EL [facility] [id number] 14:16:55 16:05:25 _[id number] 2017-05-17 2017-05-17 Outpatient EL [facility] [id number] 00:00:00 00:00:00 _[id number] 2017-05-01 Outpatient EL [facility] [id number] 15:58:42 15:59:50 _[id number] 2017-05-01 2017-05-01 Outpatient EL [facility] [id number] 00:00:00 00:00:00 _10 2017-04-07 2017-04-07 Emergency ER SANTA, [facility] [id number] 07:49:50 14:39:00 REI _[id number] 2017-04-07 2017-04-07 Emergency [facility] [id number] 07:49:50 14:39:00 5 2017-04-07 2017-04-07 Emergency [facility] [id number] 09:09:48 09:09:48 _[id number] 2017-04-07 2017-04-07 Emergency ER [facility] [id number] 07:43:00 07:43:00 _[id number] 2017-04-03 2017-04-03 Outpatient EL [facility] [id number] 15:11:06 15:34:58 _[id number] 2017-03-06 2017-03-06 Outpatient EL [facility] [id number] 15:03:04 15:14:10 _[id number] 2017-03-06 2017-03-06 Outpatient EL [facility] [id number] 00:00:00 00:00:00 _[id number] 2017-02-01 2017-02-01 Outpatient EL [facility] [id number] 14:03:12 15:33:51 _[id number] 2017-02-01 2017-02-01 Outpatient EL [facility] [id number] 00:00:00 00:00:00 _[id number] 2017-01-09 2017-01-09 Outpatient EL [facility] [id number] 15:13:08 23:59:00 _[id number] 2016-12-04 2016-12-04 Outpatient Desmond Medellin n [id number] 00:00:00 00:00:00 Rasheed guidry [facility] [place] 2016-11-16 2016-11-16 Outpatient EL [facility] [id number] 13:40:12 16:32:07 _[id number] 2016-11-16 2016-11-16 Outpatient EL [facility] [id number] 00:00:00 00:00:00 _[id number] 2016-11-07 Outpatient EL [facility] [id number] 00:00:00 23:59:00 _[id number] 2016-11-07 2016-11-07 Outpatient EL [facility] [id number] 15:46:14 15:46:29 _[id number] 2016-11-02 2016-11-02 Outpatient EL [facility] [id number] 00:00:00 00:00:00 _[id number] 2016-10-22 2016-10-22 Outpatient Desmond [facility] [id number] 00:00:00 00:00:00 rn [facility] [place] 2016-10-19 2016-10-19 Outpatient Desmond [facility] [id number] 00:00:00 00:00:00 rn [facility] [place] 2016-10-18 2016-10-18 Outpatient Desmond [facility] [id number] 00:00:00 00:00:00 rn [facility] [place] 2016-10-17 2016-10-17 Outpatient Desmond [facility] [id number] 00:00:00 00:00:00 rn [facility] [place] 2016-10-16 2016-10-16 Outpatient Desmond [facility] [id number] 00:00:00 00:00:00 rn [facility] [place] 2016-09-26 2016-10-03 Inpatient ER JAMES, [facility] [id number] 18:04:54 15:51:24 JACKIE _[id number] 2016-09-26 2016-10-03 Outpatient [facility] [id number] 18:04:54 15:51:24 6 2016-09-26 2016-09-26 Emergency [facility] [id number] 19:54:45 23:59:00 _[id number] 2016-09-26 2016-09-26 Outpatient EL [facility] [id number] 15:50:56 23:59:00 _[id number] 2016-09-26 2016-09-26 Outpatient EL [facility] [id number] 15:50:56 23:59:00 _[id number] 2016-09-26 2016-09-26 Emergency ER [facility] [id number] 16:27:00 16:27:00 _[id number] 2016-09-26 2016-09-26 Outpatient EL [facility] [id number] 00:00:00 00:00:00 _[id number] 2016-08-29 2016-08-29 Outpatient EL [facility] [id number] 00:00:00 23:59:00 _[id number] 2016-08-03 2016-08-03 Outpatient EL [facility] [id number] 14:40:21 23:59:00 _[id number] 2016-08-03 2016-08-03 Outpatient EL [facility] [id number] 00:00:00 00:00:00 _[id number] 2016-08-01 2016-08-01 Outpatient EL [facility] [id number] 13:52:23 15:41:03 _[id number] 2016-08-01 2016-08-01 Outpatient EL [facility] [id number] 00:00:00 00:00:00 _[id number] 2016-06-27 2016-06-27 Outpatient EL [facility] [id number] 15:29:27 15:30:22 _[id number] 2016-06-27 2016-06-27 Outpatient EL [facility] [id number] 00:00:00 00:00:00 _[id number] 2016-06-06 2016-06-06 Outpatient EL [facility] [id number] 13:07:02 14:34:48 _[id number] 2016-06-06 2016-06-06 Outpatient EL [facility] [id number] 00:00:00 00:00:00 _[id number] 2016-05-04 Outpatient EL [facility] [id number] 13:52:14 15:34:18 _[id number] 2016-05-04 2016-05-04 Outpatient EL [facility] [id number] 00:00:00 00:00:00 _[id number] 2016-03-07 2016-03-07 Outpatient EL [facility] [id number] 16:00:31 17:11:53 _[id number] 2016-03-07 2016-03-07 Outpatient EL [facility] [id number] 00:00:00 00:00:00 _[id number] 2016-02-13 2016-02-13 Outpatient EL ATAGA, [facility] [id number] 15:17:48 23:59:00 SENG _[id number] 2016-01-23 2016-01-23 Outpatient EL [facility] [id number] 00:00:00 00:00:00 _[id number] 2016-01-19 2016-01-19 Outpatient EL ATAGA, [facility] [id number] 12:10:45 15:48:28 SENG _[id number] 2016-01-19 2016-01-19 Outpatient EL [facility] [id number] 00:00:00 00:00:00 _[id number] 2015-12-20 Outpatient EL KARIN, [facility] [id number] 13:26:15 15:43:45 SENG _[id number] 2015-12-20 2015-12-20 Outpatient EL [facility] [id number] 00:00:00 00:00:00 _[id number] 2015-11-16 2015-11-16 Outpatient EL ANABELLA, [facility] [id number] 15:16:44 23:59:00 ASIM _[id number] 2015-11-16 2015-11-16 Outpatient EL [facility] [id number] 00:00:00 00:00:00 _[id number] 2015-10-10 2015-10-24 Inpatient ER LENA, [facility] [id number] 16:19:00 14:45:00 MARIA TERESA _[id number] 2015-10-10 2015-10-24 Outpatient [facility] [id number] 16:19:00 14:45:00 4 2015-10-12 2015-10-12 Inpatient [facility] [id number] 13:23:54 23:59:00 _[id number] 2015-10-10 2015-10-10 Emergency [facility] [id number] 18:14:43 23:59:00 _ [id number] 2015-10-10 2015-10-10 Outpatient EL ATAGA, [facility] [id number] 13:15:13 23:59:00 SENG _ [id number] 2015-10-10 2015-10-10 Outpatient EL ATAGA, [facility] [id number] 13:15:13 23:59:00 SENG _ [id number] 2015-10-10 2015-10-10 Emergency ER [facility] [id number] 14:43:00 14:43:00 _ [id number] 2015-10-10 2015-10-10 Outpatient EL [facility] [id number] 00:00:00 00:00:00 _[id number] 2015-10-08 2015-10-08 Emergency [facility] [id number] 14:57:34 23:59:00 _[id number] 2015-10-08 2015-10-08 Emergency ER WARNER DONOVAN [facility] [id number] 13:44:43 21:27:00 ALENA _[id number] 2015-10-08 2015-10-08 Emergency ER WARNER DONOVAN [facility] [id number] 13:44:43 21:27:00 ALENA _[id number] 2015-10-08 2015-10-08 Outpatient [facility] [id number] 13:44:43 21:27:00 8 2015-10-08 2015-10-08 Emergency [facility] [id number] 14:57:34 14:57:34 _[id number] 2015-10-08 2015-10-08 Emergency ER [facility] [id number] 13:29:00 13:29:00 _[id number] 2015-09-13 2015-09-13 Outpatient EL [facility] [id number] 00:00:00 23:59:00 _[id number] 2015-09-13 2015-09-13 Outpatient EL ATAGAWARNER [facility] [id number] 11:46:27 13:58:10 KELAYRES _[id number] 2015-08-27 2015-08-29 Inpatient ER WARNER GAR [facility] [id number] 17:06:53 19:10:04 YVETTE _[id number] 2015-08-27 2015-08-29 Outpatient [facility] [id number] 17:06:53 19:10:04 1 2015-08-27 2015-08-27 Emergency [facility] [id number] 18:12:36 18:12:36 _[id number] 2015-08-27 2015-08-27 Emergency ER [facility] [id number] 17:00:00 17:00:00 _[id number] 2015-08-03 2015-08-04 Outpatient WARNER LOZANO [facility] [id number] 14:57:47 13:24:05 KELAYRES _[id number] 2015-08-03 2015-08-03 Outpatient EL WARNER FRAZIER [facility] [id number] 14:57:20 15:15:17 KELAYRES _[id number] 2015-08-03 2015-08-03 Outpatient EL [facility] [id number] 00:00:00 00:00:00 _[id number] 2015-07-06 2015-07-06 Outpatient EL WARNER FRAZIER [facility] [id number] 14:02:16 14:02:16 KELAYRES _[id number] 2015-07-06 2015-07-06 Outpatient EL [facility] [id number] 00:00:00 00:00:00 _[id number] 2014-10-05 2014-10-05 Outpatient [facility] [id number] 00:00:00 00:00:00 rn [facility] [place] 2014-10-02 2014-10-02 Outpatient [facility] [id number] 00:00:00 00:00:00 rn [facility] [place] 2014-09-29 2014-09-29 Outpatient [facility] [id number] 00:00:00 00:00:00 rn [facility] [place] 2014-09-24 2014-09-24 Outpatient [facility] [id number] 00:00:00 00:00:00 rn [facility] [place] 2014-09-23 2014-09-23 Outpatient [facility] [id number] 00:00:00 00:00:00 rn [facility] [place] 2014-09-22 2014-09-22 Outpatient [facility] [id number] 00:00:00 00:00:00 rn [facility] [place] 2014-09-21 2014-09-21 Outpatient [facility] [id number] 00:00:00 00:00:00 rn Medical Medical Oncology Oncology [facility] 2014-09-20 2014-09-20 Outpatient [facility] [id number] 00:00:00 00:00:00 rn Medical Medical Oncology Oncology [facility] 2014-04-09 2014-04-09 Outpatient [facility] [id number] 00:00:00 00:00:00 rn [facility] Medical Oncology Oncology [facility] 2014-04-08 2014-04-08 Outpatient [facility] [id number] 00:00:00 00:00:00 rn [facility] Oncology Oncology [facility] Immunizations Ordered Immunization Filled Immunization Date Status [...] Expiration D ate MEDICARE PART A AND [id number] 2003 00:00:00 [place] [id number] 2017 00:00:00 Plan of Treatment Planned Activity [...] Date Stop Date Comments Tobacco smoking status AZIS 2018-04-21 00:00:00 2018-04-21 00:00 :00 Cigarettes smoked current (pack per 2018-04-21 00:00:00 00:00:00 day) - Reported Cigarette pack-years 2018-04-21 00:00:00 2018-04-21 00:00:00 Alcohol intake 2018-04-21 00:00:00 2018-04-21 00:00:00 ASSERTION 2016-09-26 00:00:00 2011-07-28 00:00:00 History of tobacco use 2011-07-28 00:00:00 Smoking Status Start Date Stop Date Never 2020-03-03 00:00:00 Social History Observation Description Sex Male [...] kg BMI 2018-07-21 22:37:00 24.14 kg/m2 BMI 2020-03-03 15:20:09 26.9600 BP rucker 2020-03-03 15:20:09 95.0000 mm[Hg] Bdy height 2020-03-03 15:20:09 72.0000 [in_i] Heart rate 2020-03-03 15:20:09 56.0000 /min Resp rate 2020-03-03 15:20:09 16.0000 /min BP sys 2020-03-03 15:20:09 148.0000 mm[Hg] Body temperature 2020-03-03 15:20:09 97.3000 [degF] Weight 2020-03-03 15:20:09 198.8000 [lb_av] BMI 2020-01-19 15:01:07 26.6600 BP rucker 2020-01-19 [...] 75 /min BODY TEMPERATURE 2015-10-24 12:07:00 36.39 Ssuie RESPIRATORY RATE 2015-10-24 12:07:00 18 /min OXYGEN [...]
== END 2020-03-04 11:15 | disposition home or self-care (01) ==
LOC: II 08:54 → 5TH 09:02 → II 11:15
PROVIDERS: ATTEND Internal Medicine
DX: D57.1 Sickle-cell disease without crisis (principal); E86.0 Dehydration; R52 Pain, unspecified
CPT/HCPCS: 96365; 96375; 96361; J1200; J1170; J1642; 90686; 96372

== ENCOUNTER 2020-03-08 08:21 | Outpatient (CLI) | payer MEDICARE, MEDICAID ==
[2020-03-08] MEDS ORDERED: DIPHENHYDRAMINE HCL 25 MG in NORMAL SALINE 50 ML IV PRN (08:35)
[2020-03-08] MEDS ORDERED: NORMAL SALINE 1000 ML 1,000 ML IV PRN (08:36)
[2020-03-08] MEDS ORDERED: HYDROMORPHONE HCL INJ/PF 2 MG/ML AMPULE IV PRN (08:37)
[2020-03-08 08:40] VITALS: BP 119/82
== END 2020-03-08 10:26 | disposition home or self-care (01) ==
LOC: II 08:21 → 5TH 08:27 → II 10:26
PROVIDERS: ATTEND Internal Medicine
DX: D57.1 Sickle-cell disease without crisis (principal); E86.0 Dehydration; R52 Pain, unspecified
CPT/HCPCS: 96365; 96375; 96361; J1200; J1170; J1642

== ENCOUNTER 2020-03-09 08:08 | Outpatient (CLI) | payer MEDICARE, MEDICAID ==
[~2020-03-09 08:08] MED LIST changes: -NORMAL SALINE 1000 ML 2,000 ML IV PRN
[2020-03-09 08:36] VITALS: BP 128/81
== END 2020-03-09 10:20 | disposition home or self-care (01) ==
LOC: II 08:08 → 5TH 08:09 → II 10:20
PROVIDERS: ATTEND Internal Medicine
DX: D57.1 Sickle-cell disease without crisis (principal); E86.0 Dehydration; R52 Pain, unspecified
CPT/HCPCS: 96361; 96365; 96375; J1170; J1200; J1642

== ENCOUNTER 2020-03-11 08:25 | Outpatient (CLI) | payer MEDICARE, MEDICAID ==
[~2020-03-11 08:25] MED LIST changes: +DIPHENHYDRAMINE 50 MG in NS 50 ML IV PRN; -NORMAL SALINE 1000 ML 1,000 ML IV PRN; +NORMAL SALINE 1000 ML @ AS DIRECTED IV PRN
[2020-03-11 08:52] VITALS: BP 110/74
== END 2020-03-11 11:44 | disposition home or self-care (01) ==
LOC: II 08:25 → 5TH 08:47 → II 11:44
PROVIDERS: ATTEND Internal Medicine
DX: D57.1 Sickle-cell disease without crisis (principal); E86.0 Dehydration; R52 Pain, unspecified
CPT/HCPCS: 96361; 96365; 96375; J1170; J1200; J1642

== ENCOUNTER 2020-03-15 08:54 | Outpatient (CLI) | payer MEDICARE, MEDICAID ==
[~2020-03-15 08:54] MED LIST changes: -DIPHENHYDRAMINE 50 MG in NS 50 ML IV PRN
[2020-03-15 10:57] VITALS: BP 118/75
== END 2020-03-15 10:45 | disposition home or self-care (01) ==
LOC: II 08:54 → 5TH 08:57 → II 10:45
PROVIDERS: ATTEND Internal Medicine
DX: D57.1 Sickle-cell disease without crisis (principal); E86.0 Dehydration; R52 Pain, unspecified
CPT/HCPCS: 96365; 96375; 96361; J1200; J1170; J1642

== ENCOUNTER 2020-03-16 08:17 | Outpatient (CLI) | payer MEDICARE, MEDICAID ==
[2020-03-16 09:25] VITALS: BP 112/77
== END 2020-03-16 10:45 | disposition home or self-care (01) ==
LOC: II 08:17 → 5TH 08:19 → II 10:45
PROVIDERS: ATTEND Internal Medicine
DX: D57.1 Sickle-cell disease without crisis (principal); E86.0 Dehydration; R52 Pain, unspecified
CPT/HCPCS: 96365; 96375; 96361; J1200; J1170; J1642

== ENCOUNTER 2020-03-18 08:33 | Outpatient (CLI) | payer MEDICARE, MEDICAID ==
[2020-03-18 09:01] VITALS: BP 125/76
== END 2020-03-18 10:00 | disposition home or self-care (01) ==
LOC: II 08:33 → 5TH 08:36 → II 10:00
PROVIDERS: ATTEND Internal Medicine
DX: D57.1 Sickle-cell disease without crisis (principal); E86.0 Dehydration; R52 Pain, unspecified
CPT/HCPCS: 96365; 96375; 96361; J1200; J1170; J1642

== ENCOUNTER 2020-03-22 08:46 | Outpatient (CLI) | payer MEDICARE, MEDICAID ==
[~2020-03-22 08:46] MED LIST changes: +NORMAL SALINE 1000 ML 1,000 ML IV PRN; -NORMAL SALINE 1000 ML @ AS DIRECTED IV PRN
[2020-03-22 09:20] VITALS: BP 105/63
== END 2020-03-22 12:33 | disposition home or self-care (01) ==
LOC: II 08:46 → 5TH 08:48 → II 12:33
PROVIDERS: ATTEND Internal Medicine
DX: D57.1 Sickle-cell disease without crisis (principal); E86.0 Dehydration; R52 Pain, unspecified
CPT/HCPCS: 96365; 96375; 96361; J1200; J1170; J1642

== ENCOUNTER 2020-03-23 08:29 | Outpatient (CLI) | payer MEDICARE, MEDICAID ==
[2020-03-23 08:47] VITALS: BP 142/88
== END 2020-03-23 10:00 | disposition home or self-care (01) ==
LOC: II 08:29 → 5TH 08:30 → II 10:00
PROVIDERS: ATTEND Internal Medicine
DX: D57.1 Sickle-cell disease without crisis (principal); E86.0 Dehydration; R52 Pain, unspecified
CPT/HCPCS: 96365; 96375; 96361; J1200; J1170; J1642

== ENCOUNTER 2020-03-25 08:35 | Outpatient (CLI) | payer MEDICARE, MEDICAID ==
[~2020-03-25 08:35] MED LIST changes: +NORMAL SALINE 1000 ML 2,000 ML IV PRN
[2020-03-25 09:39] VITALS: BP 129/83
== END 2020-03-25 11:30 | disposition home or self-care (01) ==
LOC: II 08:35 → 5TH 08:43 → II 11:30
PROVIDERS: ATTEND Internal Medicine
DX: D57.1 Sickle-cell disease without crisis (principal); E86.0 Dehydration; R52 Pain, unspecified
CPT/HCPCS: 96365; 96375; 96361; J1200; J1170; J1642

== ENCOUNTER → 2020-03-28 | Outpatient (CLI) | payer MEDICARE, MEDICAID ==
[~2020-03-28] MED LIST changes: -DIPHENHYDRAMINE HCL 25 MG in NORMAL SALINE 50 ML IV PRN; +DIPHENHYDRAMINE HCL 50 MG/ML VIAL IV PRN; +DIPHENHYDRAMINE HCL 50 MG/ML VIAL ONE; +HYDROMORPHONE HCL INJ/PF 2 MG/ML AMPULE ONE; -NORMAL SALINE 1000 ML 2,000 ML IV PRN
[2020-03-28 16:57] VITALS: BP 136/87
== END ==
LOC: ASU 15:34
PROVIDERS: ATTEND Internal Medicine
DX: D57.1 Sickle-cell disease without crisis (principal); E86.0 Dehydration; R52 Pain, unspecified
CPT/HCPCS: 96375; 96361 ×2; 96374; J1200; J1170; J1642

== ENCOUNTER 2020-03-29 08:20 | Outpatient (CLI) | payer MEDICARE, MEDICAID ==
[2020-03-29] MEDS ORDERED: DIPHENHYDRAMINE HCL 25 MG in NORMAL SALINE 50 ML IV PRN (08:37)
[2020-03-29] MEDS ORDERED: NORMAL SALINE 1000 ML 1,000 ML IV PRN (08:38)
[2020-03-29] MEDS ORDERED: HYDROMORPHONE HCL INJ/PF 2 MG/ML AMPULE IV PRN (08:39)
[2020-03-29 09:04] VITALS: BP 132/88
== END 2020-03-29 10:00 | disposition home or self-care (01) ==
LOC: II 08:20 → 5TH 08:23 → II 10:00
PROVIDERS: ATTEND Internal Medicine
DX: D57.1 Sickle-cell disease without crisis (principal); E86.0 Dehydration; R52 Pain, unspecified
CPT/HCPCS: 96365; 96375; 96361; J1200; J1170; J1642

== ENCOUNTER 2020-03-30 08:32 | Outpatient (CLI) | payer MEDICARE, MEDICAID ==
[2020-03-30] MEDS ORDERED: DIPHENHYDRAMINE HCL 25 MG in NORMAL SALINE 50 ML IV PRN (08:42)
[2020-03-30] MEDS ORDERED: HYDROMORPHONE HCL INJ/PF 2 MG/ML AMPULE IV PRN (08:43)
[2020-03-30] MEDS ORDERED: NORMAL SALINE 1000 ML 1,000 ML IV PRN (08:43)
[2020-03-30 08:48] VITALS: BP 131/73
== END 2020-03-30 10:10 | disposition home or self-care (01) ==
LOC: II 08:32 → 5TH 08:34 → II 10:10
PROVIDERS: ATTEND Internal Medicine
DX: D57.1 Sickle-cell disease without crisis (principal); E86.0 Dehydration; R52 Pain, unspecified
CPT/HCPCS: 96365; 96375; 96361; J1200; J1170; J1642

== ENCOUNTER 2020-04-06 13:13 | Outpatient (CLI) | payer MEDICARE, MEDICAID ==
[~2020-04-06 13:13] MED LIST changes: +DIPHENHYDRAMINE HCL 25 MG in NORMAL SALINE 50 ML IV PRN; -DIPHENHYDRAMINE HCL 50 MG/ML VIAL IV PRN; -DIPHENHYDRAMINE HCL 50 MG/ML VIAL ONE; -HYDROMORPHONE HCL INJ/PF 2 MG/ML AMPULE ONE
[2020-04-06 14:20] VITALS: BP 131/86
== END 2020-04-06 15:15 | disposition home or self-care (01) ==
LOC: II 13:13 → 5TH 13:22 → II 15:15
PROVIDERS: ATTEND Internal Medicine
DX: D57.1 Sickle-cell disease without crisis (principal); E86.0 Dehydration; R52 Pain, unspecified
CPT/HCPCS: 96365; 96375; 96361; J1200; J1170; J1642

== ENCOUNTER 2020-04-07 09:10 | Outpatient (CLI) | payer MEDICARE, MEDICAID ==
[2020-04-07] MEDS ORDERED: NORMAL SALINE 1000 ML 1,000 ML IV PRN (09:18)
[2020-04-07] MEDS ORDERED: DIPHENHYDRAMINE HCL 25 MG in NORMAL SALINE 50 ML IV PRN (09:18)
[2020-04-07] MEDS ORDERED: HYDROMORPHONE HCL INJ/PF 2 MG/ML AMPULE IV PRN (09:18)
[2020-04-07 09:31] VITALS: BP 140/78
== END 2020-04-07 10:45 | disposition home or self-care (01) ==
LOC: II 09:10 → 5TH 09:13 → II 10:45
PROVIDERS: ATTEND Internal Medicine
DX: D57.1 Sickle-cell disease without crisis (principal); E86.0 Dehydration; R52 Pain, unspecified
CPT/HCPCS: 96365; 96375; 96361; J1200; J1170; J1642

== ENCOUNTER 2020-04-08 08:20 | Outpatient (CLI) | payer MEDICARE, MEDICAID ==
[2020-04-08] MEDS ORDERED: DIPHENHYDRAMINE HCL 25 MG in NORMAL SALINE 50 ML IV PRN (08:29)
[2020-04-08] MEDS ORDERED: NORMAL SALINE 1000 ML 1,000 ML IV PRN (08:30)
[2020-04-08] MEDS ORDERED: HYDROMORPHONE HCL INJ/PF 2 MG/ML AMPULE IV PRN (08:31)
[2020-04-08 08:35] VITALS: BP 130/84
== END 2020-04-08 10:00 | disposition home or self-care (01) ==
LOC: II 08:20 → 5TH 08:22 → II 10:00
PROVIDERS: ATTEND Internal Medicine
DX: D57.1 Sickle-cell disease without crisis (principal); E86.0 Dehydration; R52 Pain, unspecified
CPT/HCPCS: 96365; 96375; 96361; J1200; J1170; J1642

== ENCOUNTER 2020-04-12 09:08 | Outpatient (CLI) | payer MEDICARE, MEDICAID ==
[2020-04-12 10:32] VITALS: BP 122/90
== END 2020-04-12 11:00 | disposition home or self-care (01) ==
LOC: II 09:08 → 5TH 09:38 → II 11:00
PROVIDERS: ATTEND Internal Medicine
DX: D57.1 Sickle-cell disease without crisis (principal); E86.0 Dehydration; R52 Pain, unspecified
CPT/HCPCS: 96365; 96375; 96361; J1200; J1170; J1642

== ENCOUNTER 2020-04-13 08:32 | Outpatient (CLI) | payer MEDICARE, MEDICAID ==
[2020-04-13 09:47] VITALS: BP 141/96
== END 2020-04-13 10:15 | disposition home or self-care (01) ==
LOC: II 08:32 → 5TH 08:38 → II 10:15
PROVIDERS: ATTEND Internal Medicine
DX: D57.1 Sickle-cell disease without crisis (principal); E86.0 Dehydration; R52 Pain, unspecified
CPT/HCPCS: 96365; 96375; 96361; J1200; J1170; J1642

== ENCOUNTER 2020-04-14 07:50 | Outpatient (CLI) | payer MEDICARE, MEDICAID ==
[2020-04-14 09:35] VITALS: BP 136/94
== END 2020-04-14 09:30 | disposition home or self-care (01) ==
LOC: II 07:50 → 5TH 07:54 → II 09:30
PROVIDERS: ATTEND Internal Medicine
DX: D57.1 Sickle-cell disease without crisis (principal); E86.0 Dehydration; R52 Pain, unspecified
CPT/HCPCS: 96365; 96375; 96361; J1200; J1170; J1642

== ENCOUNTER 2020-04-19 08:26 | Outpatient (CLI) | payer MEDICARE, MEDICAID ==
[2020-04-19 09:24] VITALS: BP 136/86
== END 2020-04-19 10:03 | disposition home or self-care (01) ==
LOC: II 08:26 → 5TH 08:48 → II 10:03
PROVIDERS: ATTEND Internal Medicine
DX: D57.1 Sickle-cell disease without crisis (principal); E86.0 Dehydration; R52 Pain, unspecified
CPT/HCPCS: 96365; 96375; 96361; J1200; J1170; J1642

== ENCOUNTER 2020-04-20 08:34 | Outpatient (CLI) | payer MEDICARE, MEDICAID ==
[~2020-04-20 08:34] MED LIST changes: -NORMAL SALINE 1000 ML 1,000 ML IV PRN; +NORMAL SALINE 1000 ML @ AS DIRECTED IV PRN
[2020-04-20 08:51] VITALS: BP 128/92
== END 2020-04-20 10:51 | disposition home or self-care (01) ==
LOC: II 08:34 → 5TH 08:38 → II 10:51
PROVIDERS: ATTEND Internal Medicine
DX: D57.1 Sickle-cell disease without crisis (principal); E86.0 Dehydration; R52 Pain, unspecified
CPT/HCPCS: 96365; 96375; 96361; J1200; J1170; J1642

== ENCOUNTER 2020-04-21 08:07 | Outpatient (CLI) | payer MEDICARE, MEDICAID ==
[~2020-04-21 08:07] MED LIST changes: +NORMAL SALINE 1000 ML 1,000 ML IV PRN; -NORMAL SALINE 1000 ML @ AS DIRECTED IV PRN
[2020-04-21 09:10] VITALS: BP 135/87
== END 2020-04-21 09:45 | disposition home or self-care (01) ==
LOC: II 08:07 → 5TH 08:09 → II 09:45
PROVIDERS: ATTEND Internal Medicine
DX: D57.1 Sickle-cell disease without crisis (principal); E86.0 Dehydration; R52 Pain, unspecified
CPT/HCPCS: 96365; 96375; 96361; J1200; J1170; J1642

== ENCOUNTER → 2020-04-25 | Outpatient (CLI) | payer MEDICARE, MEDICAID ==
[~2020-04-25] MED LIST changes: -DIPHENHYDRAMINE HCL 25 MG in NORMAL SALINE 50 ML IV PRN; +DIPHENHYDRAMINE HCL 50 MG/ML VIAL IV PRN; +DIPHENHYDRAMINE HCL 50 MG/ML VIAL ONE; +HYDROMORPHONE HCL INJ/PF 2 MG/ML AMPULE ONE
[2020-04-25 15:02] VITALS: BP 128/89
== END ==
LOC: ASU 13:18
PROVIDERS: ATTEND Internal Medicine
DX: D57.1 Sickle-cell disease without crisis (principal); E86.0 Dehydration; R52 Pain, unspecified
CPT/HCPCS: 96374; 96375; 96361; J1200; J1170; J1642

== ENCOUNTER 2020-04-26 08:21 | Outpatient (CLI) | payer MEDICARE, MEDICAID ==
[~2020-04-26 08:21] MED LIST changes: +DIPHENHYDRAMINE HCL 25 MG in NORMAL SALINE 50 ML IV PRN; -DIPHENHYDRAMINE HCL 50 MG/ML VIAL IV PRN; -DIPHENHYDRAMINE HCL 50 MG/ML VIAL ONE; -HYDROMORPHONE HCL INJ/PF 2 MG/ML AMPULE ONE; -NORMAL SALINE 1000 ML 1,000 ML IV PRN; +NORMAL SALINE 1000 ML @ AS DIRECTED IV PRN
[2020-04-26 08:50] VITALS: BP 112/79
== END 2020-04-26 10:00 | disposition home or self-care (01) ==
LOC: II 08:21 → 5TH 08:25 → II 10:00
PROVIDERS: ATTEND Internal Medicine
DX: D57.1 Sickle-cell disease without crisis (principal); E86.0 Dehydration; R52 Pain, unspecified
CPT/HCPCS: 96365; 96375; 96361; J1200; J1170; J1642